=== PATIENT | male | born 1960 | race Caucasian/White ===

== ENCOUNTER 2016-11-16 07:17 | Emergency (ER) | payer MEDICAID ==
[~2016-11-16] VITALS: Ht 182.9 cm; Wt 91.6 kg
[~2016-11-16 07:17] MED LIST: ABILIFY5 MG ORAL; ASPIRIN EC81 MG ORAL; BACITRACIN1 APPLIC TOPIC; BACTRIM DS TAB1 EAC1 ORAL; CYMBALTA60 MG ORAL; EFFEXOR XR150 MG ORAL; HUMULIN 70100 UNIT/1 SUBQ; INTELENCE100 MG ORAL; ISENTRESS400 MG ORAL; KEFLEX500 MG ORAL; LIPITOR10 MG ORAL; LISINOPRIL10 MG ORAL; LISINOPRIL20 MG ORAL; NORMODYNE200 MG ORAL; NORVASC5 MG ORAL; TRILEPTAL600 MG PO; VIBRAMYCIN100 MG ORAL; VIREAD300 MG ORAL; WELLBUTRIN100 MG ORAL
[2016-11-16 07:43] VITALS: BP 158/75
[2016-11-16] MEDS ORDERED: Bacitracin Oint UD TOPIC ONE ×2 (07:47→08:00)
[2016-11-16] MEDS ORDERED: BACITRACIN ZIN1 EACH TOPIC ×2 (07:50→08:00)
--- NOTE | 2016-11-16 07:57 | Emergency Room Report ---
History of Present Illness General Chief Complaint: Skin Rash/Abscess Source: Patient Present Illness HPI Patient is a patient is a 56-year-old male who presented after a increased thickening to ulcer to the bottom of his left foot. The patient had recently been seen by primary care physician was started on topical moisturizers. Patient was noted to have increased skin thickening. The patient had prior history of diabetes. He denied fever. He reported numbness to both lower extremities from neuropathy.He denied any discharge from the wound. He had previously been on antifungal medication. Allergies: Coded Allergies: No Known Allergies (Unverified , 02/05/13) Patient History Past Medical History: see triage record, DM, HIV Reviewed Nursing Documentation: PMH: Agreed, PSxH: Agreed Nursing Documentation-PMH Past Medical History: No History, Except For Hx Hypertension: Yes Hx Diabetes: Yes Hx Vertigo: Yes Hx Dizziness: Yes Hx Headaches: Yes - Tension headaches Review of Systems All Other Systems: negative except mentioned in HPI Physical Exam Vital Signs Date Time Temp Pulse Resp B/P Pulse Ox O2 Delivery O2 Flow Rate FiO2 11/16/16 07:29 97.9 82 14 165/78 100 Room Air Sp02 EP Interpretation: reviewed, normal General Appearance: normal inspection, well appearing, no apparent distress, alert, GCS 15 Head: atraumatic ENT: normal ENT inspection, hearing grossly normal, normal voice Neck: normal inspection, full range of motion, supple, no bony tend Respiratory: normal inspection, lungs clear, normal breath sounds, no respiratory distress, no retraction, no wheezing Cardiovascular #1: regular rate, rhythm, no edema Gastrointestinal: normal inspection, normal bowel sounds, non tender, soft, no guarding, no hernia Genitourinary: no CVA tenderness Musculoskeletal: normal inspection, back normal, normal range of motion Neurologic: normal inspection, alert, oriented x3, responsive, speech normal Psychiatric: normal inspection, judgement/insight normal, mood/affect normal Skin: no rash, other - slight ulceration between toes on plantar surface, nail pitting Medical Decision Making Diagnostic Impression: Primary Impression: Foot ulcer Additional Impression: Psoriasis ER Course Patient is a skin ulcer. Differential diagnosis included was not limited to cellulitis, abscess, infected ulcer, pressure sore among others. Patient's benign exam and does not appear to require any further imaging or laboratory testing at this time. Patient's wound does not appear to be infected. Patient was given prescription for topical antibiotic cream. Wound was irrigated and dressed with topical antibiotic. Patient is advised that wound rechecked with his primary care physician next 2 days. Patient is advised to return if she began having increased pain worsening swelling or fever or other concerns Last Vital Signs Date Time Temp Pulse Resp B/P Pulse Ox O2 Delivery O2 Flow Rate FiO2 11/16/16 07:43 97.9 74 14 158/75 100 Room Air Status: improved Disposition: HOME, SELF-CARE Condition: Stable Scripts Bacitracin Zinc* (BACITRACIN ZINC*) 1 Each Packet 1 APPLIC TOPIC THREE TIMES A DAY, #30 PACKET Prov: Fantasma Conde 11/16/16 Patient Instructions: Diabetes and Foot Care Fantasma Conde Nov 16, 2016 07:57
[2016-11-16 08:05] VITALS: BP 158/75
== END 2016-11-16 08:06 | disposition home or self-care (01) ==
LOC: EMR 07:50
DX: E11.621 Type 2 diabetes mellitus with foot ulcer (principal); L40.9 Psoriasis, unspecified; I10 Essential (primary) hypertension
CPT/HCPCS: 99283

== ENCOUNTER 2018-10-20 21:22 | Inpatient (IN) | payer MEDICARE, MEDICAID ==
[~2018-10-20] VITALS: Ht 182.9 cm; Wt 96.6 kg
[~2018-10-20 21:22] MED LIST changes: +BACITRACIN ZIN1 EACH TOPIC
--- NOTE | 2018-10-20 22:00 | NUR ---
ED Nurse Note: RECIEVED PT FROM HOME WITH C/O INTERMITTENT CHEST PAIN, PT WAS HERE EARLIER TODAY AND LEFT AMA, STATES PAIN RETURNED AND HE NOW WANTS TO SEE WHAT IS WRONG, PT DENIES PAIN AT THIS TIME, STATES WAS 03/31 BUT NONE NOW, PT GOWNED AND PLACED ON CARDIAC MONITORING, PT IS ANXIOUS, CONSTANTLY ASKING SAME QUESTIONS AND WILL NOT STAY IN BED, MD AWARE, IV LINE PLACED AND LABS SENT, WILL CONTINUE OT MONITOR AND RESUME CARE ORDERED.
[2018-10-20] MEDS ORDERED: Nitroglycerin 2% oint pkt TOPIC ONE (22:30)
[2018-10-20] MEDS ORDERED: Nitroglycerin Subl 0.4mg tab SL PRN (22:30)
[2018-10-20 23:00] VITALS: BP 195/93
[2018-10-20 23:00] LABS: APPEARANCE,URINE CLEAR; BILIRUBIN, URINE NEGATIVE (NEGATIVE); COLOR,URINE PALE YELLOW; GLUCOSE, URINE (UA) 4+ (NEGATIVE); KETONES,URINE NEGATIVE (NEGATIVE); LEUKOCYTE ESTERASE ,URINE NEGATIVE (NEGATIVE); NITRITE,URINE NEGATIVE (NEGATIVE); PH,URINE 5 (4.5-8.0); PROTEIN,URINE 2+ (NEGATIVE); UROBILINOGEN,URINE NORMAL MG/DL (0.0-1.0)
--- NOTE | 2018-10-20 23:01 | Diagnostic Imaging Report ---
EXAM: XR Chest, 1 View CLINICAL HISTORY: CP TECHNIQUE: Frontal view of the chest. COMPARISON: No relevant prior studies available. FINDINGS: Lungs: Accentuation of bronchovascular markings. Pleural space: Unremarkable. No pneumothorax. Heart: Borderline cardiomegaly. Mediastinum: Unremarkable. Bones/joints: No acute fracture. IMPRESSION: Accentuation of bronchovascular markings.
[2018-10-20 23:05] LABS: BASOPHILS % (AUTO) 0.9 % (0.0-2.0); EOSINOPHILS % (AUTO) 3.1 % (0.0-3.0); HEMATOCRIT 31.1 % (42.0-52.0); HEMOGLOBIN 10.4 G/DL (14.2-18.0); LYMPHOCYTES % (AUTO) 22.7 % (20.0-45.0); MEAN CORPUSCULAR VOLUME 83 FL (80-99); MONOCYTES % (AUTO) 16.8 % (1.0-10.0); NEUTROPHILS % (AUTO) 56.6 % (45.0-75.0); PLATELET COUNT 186 K/UL (150-450); RED BLOOD COUNT 3.75 M/UL (4.70-6.10); RED CELL DISTRIBUTION WIDTH 14.8 % (11.6-14.8); WHITE BLOOD COUNT 3.8 K/UL (4.8-10.8)
[2018-10-20 23:16] LABS: ANION GAP 7 mmol/L (5-15); BLOOD UREA NITROGEN 27 mg/dL (7-18); CALCIUM 8.5 MG/DL (8.5-10.1); CARBON DIOXIDE 25 MMOL/L (21-32); CHLORIDE 104 MMOL/L (98-107); CREATININE 1.7 MG/DL (0.55-1.30); POTASSIUM 4.4 MMOL/L (3.5-5.1); SODIUM 136 MMOL/L (136-145)
[2018-10-20 23:27] LABS: ALANINE AMINOTRANSFERASE 47 U/L (12-78); ALBUMIN 3.4 G/DL (3.4-5.0); ALKALINE PHOSPHATASE 166 U/L (46-116); ASPARTATE AMINO TRANSFERASE 36 U/L (15-37); BILIRUBIN,TOTAL 0.3 MG/DL (0.2-1.0); CREATINE KINASE 390 U/L (26-308)
[2018-10-20 23:30] VITALS: BP 155/64
[2018-10-20] MEDS ORDERED: LANTUS SOL100 UNIT/1 SUBQ (23:59)
[2018-10-20] MEDS ORDERED: MAGNESIUM400 M2 PO (23:59)
[2018-10-20] MEDS ORDERED: NAPROXEN250 MG ORAL (23:59)
[2018-10-20] MEDS ORDERED: TENORMIN25 MG ORAL (23:59)
[2018-10-20] MEDS ORDERED: LAMOTRIGINE200 M1 PO (23:59)
[2018-10-20] MEDS ORDERED: COLACE250 MG ORAL (23:59)
[2018-10-20] MEDS ORDERED: BIOTIN2500 MCG PO (23:59)
[2018-10-20] MEDS ORDERED: VICTOZA 2-0.6 MG/0.1 SUBQ (23:59)
[2018-10-20] MEDS ORDERED: LOSARTAN POTAS100 MG ORAL (23:59)
[2018-10-20] MEDS ORDERED: BUTALBITAL-ASA1 EACH PO (23:59)
[2018-10-20] MEDS ORDERED: FOLIC ACID1 M1 PO (23:59)
[2018-10-21] VITALS (8 sets, daily range): BP systolic 149–173; BP diastolic 69–97
--- NOTE | 2018-10-21 | NUR ---
ED Nurse Note: PT CONTINUES TO REST IN BED, AWAKE AND ALERT, DENIES ANY CHANGES, NO CP AT THIS TIME, C/O HAVING HEADACHE, NITROPASTE APPLIED TO CHEST, PT B/P ELEVATED AND FLUCTUATING, MD AWARE ALSO, WILL CONTINUE TO CLOSELY MONITOR AND PREAPER FOR ADMISSION.
--- NOTE | 2018-10-21 01:15 | NUR ---
ED Nurse Note: PT INFORMED BY THAT HE WILL BE ADMITTED, TP VERY ANXIOUS, WANTS TO GO TO HIS CAR, STATES FOR MEDS, INFORMED PT THAT ALL HIS MEDS WILL BE GIVEN HERE, PT INSIST ON GOING OUTSIDE, PT HAS SALINE LOCK AND INFORMED HE CAN NOT GO, MD TOLD PT HE CAN GO WITH NURSE, ASSISTED PT OUT TO CAR, NODISTRESS OR CHANGES NOTED, TP RETRIEVED CELL PHONE, WHEN RETURNED TO ED PT WENT OT BATHROOM FOR SOME TIME THEN REPLACED ON MONITORING, WILL CONTINUE TO MONITOR AND PREAPRE FOR ADMISSION.
[2018-10-21] MEDS: Metoprolol 5mg/5ml Inj IVP SCH ×3 (03:16→03:31)
--- NOTE | 2018-10-21 03:30 | NUR ---
ED Nurse Note: PT CONTINUES TO REST IN BED, PT INFORMED MD THAT HIS PAIN IS RETURNING AT 4/10 IN CHEST, MD GAVE NEW ORDERS, MEDS ADMINISTERED, PT RELIEVED OF PAIN, B/P WNL AND HEART RATE ALSO, PT TO NOW BE ADMITTED TO HOSPITAL, WILL PREPARE AND SEND TO FLOOR BED FOR ADMISISON.
--- NOTE | 2018-10-21 04:10 | Emergency Room Report ---
History of Present Illness General Chief Complaint: Chest Pain Source: Patient Present Illness HPI Patient presents with intermittent L sided chest pain which is been intermittent for about a week. It is worse when supine. The pain at home was 8 -9/10. Takes baby aspirin. The pain radiates to his shoulder and down his left arm. Pressure and aching pain. Denies diaphoresis or nausea. He has been feeling his heart pounding and palpitations along with the pain. There is no dizziness. Denies fevers, sore throat or productive cough. There is no trauma. He has no chest wall tenderness. He denies prior cardiac evaluation. He feels anxious when the pain occurs. Risk factors: DM, HTN. No family history or smoking. He does not know his cholesterol. Patient has HIV and takes antivirals. Patient has had lacunar infarcts in the past. He has had malignant hypertension also. He was last admitted in 2016 with these discharge diagnoses: 1. Acute small right pontomedullary and cerebellar peduncle stroke. 2. Hypertensive encephalopathy. 3. Malignant hypertension. 4. Human immunodeficiency virus. 5. Multiple old lacunar stroke with extensive ischemic cerebrovascular disease. 6. Bilateral posterior cerebral artery severe stenosis. 7. Depression. 8. Hyperlipidemia. 9. Poorly controlled hypertension. 10. Prior history of substance abuse. Allergies: Coded Allergies: No Known Allergies (Unverified , 02/05/13) Patient History Past Medical History: see triage record Social History: Denies: smoking, alcohol use, drug use - Prior Social History Narrative from home Reviewed Nursing Documentation: PMH: Agreed; PSxH: Agreed Nursing Documentation-PMH Hx Hypertension: Yes Hx Diabetes: Yes Hx Vertigo: Yes Hx Dizziness: Yes Hx Headaches: Yes - Tension headaches Review of Systems All Other Systems: negative except mentioned in HPI Physical Exam Vital Signs Date Time Temp Pulse Resp B/P (MAP) Pulse Ox O2 Delivery O2 Flow Rate FiO2 10/20/18 21:42 98.1 108 18 150/80 94 Room Air Sp02 EP Interpretation: reviewed, normal General Appearance: well appearing, no apparent distress, GCS 15 Head: normocephalic Eyes: bilateral eye normal inspection, bilateral eye PERRL ENT: moist mucus membranes Neck: supple Respiratory: chest non-tender, lungs clear, normal breath sounds Cardiovascular #1: regular rate, rhythm, no edema Cardiovascular #2: 2+ radial (R) Gastrointestinal: normal inspection, normal bowel sounds, non tender, no mass, non-distended Musculoskeletal: back normal, gait/station normal, normal range of motion, no calf tenderness Neurologic: alert, oriented x3, grossly normal Psychiatric: anxious Skin: normal inspection, warm/dry Medical Decision Making Diagnostic Impression: Primary Impression: ACS (acute coronary syndrome) Additional Impressions: Elevated troponin Hypertension Qualified Codes: I10 - Essential (primary) hypertension Diabetes Qualified Codes: E11.8 - Type 2 diabetes mellitus with unspecified complications; 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 The fact that he is a diabetic makes it important for us to exclude cardiac cause even though the history is atypical. Differential includes acute myocardial infarction, acute coronary syndrome, costochondritis, esophageal reflux, other musculoskeletal causes others. Evaluation will be with EKG, chest x-ray and labs. The patient will be treated with aspirin nitroglycerin paste. Nitroglycerin is ordered he does have pain here. The patient is placed on a threat monitoring analyst. EKG was sinus tachycardia without injury. Chest x-ray unremarkable. Initial troponin minimally elevated. Renal insufficiency. Lipase is slightly elevated however pain is not in the area of the pancreas. Pain free with nitro bid. Feels heart pounding and occasional palpitations. Metoprolol ordered. Improved with metoprolol. Discussed with Dr. Russo. Repeat troponin with slight increase. Discussed with patient treatment plan. Patient admitted to telemetry. Laboratory Tests Test 10/20/18 20:25 10/20/18 22:30 10/21/18 03:10 Urine Color Pale yellow Urine Appearance Clear Urine pH 5 (4.5-8.0) Urine Specific [place] 1.015 (1.005-1.035) Urine Protein 2+ (NEGATIVE) H Urine Glucose (UA) 4+ (NEGATIVE) H Urine Ketones Negative (NEGATIVE) Urine Blood 2+ (NEGATIVE) H Urine Nitrite Negative (NEGATIVE) Urine Bilirubin Negative (NEGATIVE) Urine Urobilinogen Normal MG/DL (0.0-1.0) Urine Leukocyte Esterase Negative (NEGATIVE) Urine RBC 0-2 /HPF (0 - 0) H Urine WBC 0-2 /HPF (0 - 0) Urine Squamous Epithelial Cells None /LPF (NONE/OCC) Urine Bacteria None /HPF (NONE) White Blood Count 3.8 K/UL (4.8-10.8) L Red Blood Count 3.75 M/UL (4.70-6.10) L Hemoglobin 10.4 G/DL (14.2-18.0) L Hematocrit 31.1 % (42.0-52.0) L Mean Corpuscular Volume 83 FL (80-99) Mean Corpuscular Hemoglobin 27.6 PG (27.0-31.0) Mean Corpuscular Hemoglobin Concent 33.3 G/DL (32.0-36.0) Red Cell Distribution Width 14.8 % (11.6-14.8) Platelet Count 186 K/UL (150-450) Mean Platelet Volume 4.8 FL (6.5-10.1) L Neutrophils (%) (Auto) 56.6 % (45.0-75.0) Lymphocytes (%) (Auto) 22.7 % (20.0-45.0) Monocytes (%) (Auto) 16.8 % (1.0-10.0) H Eosinophils (%) (Auto) 3.1 % (0.0-3.0) H Basophils (%) (Auto) 0.9 % (0.0-2.0) Prothrombin Time 10.4 SEC (9.30-11.50) Prothrombin Time INR 1.0 (0.9-1.1) PTT 34 SEC (23-33) H Sodium Level 136 MMOL/L (136-145) Potassium Level 4.4 MMOL/L (3.5-5.1) Chloride Level 104 MMOL/L (98-107) Carbon Dioxide Level 25 MMOL/L (21-32) Anion Gap 7 mmol/L (5-15) Blood Urea Nitrogen 27 mg/dL (7-18) H Creatinine 1.7 MG/DL (0.55-1.30) H Estimate Glomerular Filtration Rate 41.5 mL/min (>60) Glucose Level 177 MG/DL (74-106) H Calcium Level 8.5 MG/DL (8.5-10.1) Total Bilirubin 0.3 MG/DL (0.2-1.0) Aspartate Amino Transferase (AST) 36 U/L (15-37) Alanine Aminotransferase (ALT) 47 U/L (12-78) Alkaline Phosphatase 166 U/L (46-116) H Total Creatine Kinase 390 U/L (26-308) H Troponin I 0.048 ng/mL (0.000-0.056) 0.068 ng/mL (0.000-0.056) Pro-B-Type Natriuretic Peptide 121 pg/mL (0-125) Total Protein 6.7 G/DL (6.4-8.2) Albumin 3.4 G/DL (3.4-5.0) Globulin 3.3 g/dL Albumin/Globulin Ratio 1.0 (1.0-2.7) Lipase 428 U/L (73-393) H EKG Diagnostic Results Rate: tachycardiac Rhythm: NSR ST Segments: no acute changes Rhythm Strip Diag. Results EP Interpretation: yes Rhythm: no PVC's, no ectopy, other - ST Chest X-Ray Diagnostic Results Chest X-Ray Diagnostic Results : Chest X-Ray Ordered: Yes # of Views/Limited/Complete: 1 View Indication: Chest Pain EP Interpretation: Yes Interpretation: no consolidation, no effusion, no pneumothorax Impression: No acute disease Last Vital Signs Date Time Temp Pulse Resp B/P (MAP) Pulse Ox O2 Delivery O2 Flow Rate FiO2 10/21/18 09:00 Room Air 10/21/18 08:43 153/83 10/21/18 08:43 102 10/21/18 08:00 98.4 22 98 Status: improved Disposition: ADMITTED INPATIENT Condition: Serious Referrals: NON PHYSICIAN (PCP) Salty Flowers MD Oct 21, 2018 04:10
--- NOTE | 2018-10-21 05:00 | NUR ---
NURSE NOTES: RECEIVED BEDSIDE REPORT FROM MONICO ZARATE. PT IS IS X4, ABLE TO FOLLOW COMMANDS, AMBULATORY. LFA 20G ASYMPTOMATIC, SL. SKIN IS CLEAN, DRY INTACT. NO S/S OF DISTRESS NOTED. STATES NO PAIN. URINAL AT BEDSIDE. AWAITING ADMIT ORDERS FROM PHYSICIAN. ORIENTATION GIVEN. BED IS LOCKED IN LOWEST POSITION, SR X3, BED ALARM ON. WILL CONTINUE TO MONITOR AND FOLLOW PLAN OF CARE.
[2018-10-21] MEDS ORDERED: Norco 5mg/325mg tab ORAL PRN (05:15)
--- NOTE | 2018-10-21 07:10 | NUR ---
HAND-OFF: Report given to TESSA Ramirez. Pt stable, no complains of pain, s/s of distress.
--- NOTE | 2018-10-21 08:00 | NUR ---
NURSE NOTES: Pt awake/alert sitting at edge of bed, breathing easily on room air, denies SOB and denies pain at this time. Vital signs stable with SR @ 101 on monitor. IV access left forearm flushed with 10 ml NS and locked. Pt sts no accu-chek done since admit so done at bedside, 122. Bed left in low position, side rails up x 2 and call light left near pt's hand.
--- NOTE | 2018-10-21 08:01 | NUR ---
NURSE NOTES: RECEIVED BEDSIDE REPORT FROM TESSA MCDOWELL. PT IS IS X4, ABLE TO FOLLOW COMMANDS, AMBULATORY. LFA 20G ASYMPTOMATIC, SL. SKIN IS CLEAN, DRY INTACT. NO S/S OF DISTRESS NOTED. STATES NO PAIN. URINAL AT BEDSIDE. LABS OK. BED IS LOCKED IN LOWEST POSITION, SR X3, BED ALARM ON. WILL CONTINUE TO MONITOR AND FOLLOW PLAN OF CARE.
[2018-10-21] MEDS: Docusate 100mg cap ORAL SCH ×2 (08:41→17:47)
[2018-10-21] MEDS: DULoxetine 30mg cap ORAL SCH (08:42)
[2018-10-21] MEDS: Aspirin EC 81mg tab ORAL SCH (08:42)
[2018-10-21] MEDS ORDERED: Etravirine 100mg tab ORAL SCH (09:00)
[2018-10-21] MEDS ORDERED: Naproxen 500mg tab ORAL SCH (09:00)
[2018-10-21] MEDS ORDERED: Isentress 400mg tab ORAL SCH (09:00)
[2018-10-21] MEDS ORDERED: Docusate 250mg cap ORAL SCH (09:00)
[2018-10-21] MEDS ORDERED: Atenolol 25mg tab ORAL SCH (09:00)
[2018-10-21] MEDS ORDERED: Losartan 25mg tab ORAL SCH (09:00)
[2018-10-21] MEDS ORDERED: Lexiscan 0.4mg/5ml syringe IV PRN (13:45)
--- NOTE | 2018-10-21 13:47 | Consultation ---
History of Present Illness General Date patient seen: Oct 21, 2018 Time patient seen: 13:36 Chief Complaint: Chest Pain Present Illness HPI 58 y/o male presents with CP in setting of hypertension, troponin marginally elevated, EKG sinus tachycardia. He has hx of HTN, medication non compliance, depression, DM, CKD, HLD, HIV, substance abuse, Lacunar hypertensive infarcts. Allergies: Coded Allergies: No Known Allergies (Unverified , 02/05/13) Medication History Scheduled Amlodipine Besylate (Norvasc), 5 MG ORAL BID Aripiprazole* (Abilify*), 2.5 MG ORAL DAILY, (Reported) Aspirin Ec* (Aspirin Ec*), 81 MG ORAL DAILY Atenolol (Tenormin), 50 MG ORAL DAILY, (Reported) Atorvastatin Calcium* (Lipitor*), 10 MG ORAL BEDTIME Bacitracin Zinc* (Bacitracin Zinc*), 1 APPLIC TOPIC THREE TIMES A DAY Bupropion HCl (Wellbutrin), 100 MG ORAL DAILY, (Reported) Docusate Sodium (Docusate Sodium), 100 MG ORAL TWICE A DAY, (Reported) Duloxetine Hcl* (Cymbalta*), 90 MG ORAL DAILY, (Reported) Etravirine* (Intelence*), 100 MG ORAL EVERY 12 HOURS, (Reported) Folic Acid (Folic Acid), 1 MG PO BID, (Reported) Hum Insulin Nph/Reg Insulin Hm (Humulin 70-30 Pen), 0 SUBQ BID, (Reported) Insulin Glargine (Lantus), 48 SUBQ BEDTIME, (Reported) Labetalol HCl (Labetalol HCl), 200 MG ORAL Q12HR Liraglutide (Victoza 2-Oleg), 1.2 MG SUBQ DAILY, (Reported) Lisinopril (Lisinopril*), 20 MG ORAL BID Lisinopril* (Lisinopril*), 20 MG ORAL DAILY, (Reported) Losartan Potassium (Losartan Potassium), 25 MG ORAL DAILY, (Reported) Naproxen* (Naprosyn*), 500 MG ORAL TWICE A DAY, (Reported) Oxcarbazepine* (Trileptal*), 750 MG PO BEDTIME, (Reported) Raltegravir (Isentress), 400 MG ORAL EVERY 12 HOURS, (Reported) Tenofovir Disoproxil Fumarate* (Viread*), 300 MG ORAL DAILY, (Reported) Venlafaxine Hcl* (Effexor Xr*), 300 MG ORAL BID, (Reported) Miscellaneous Medications Biotin (Biotin), 5,000 MCG PO, (Reported) Butalbital/Aspirin/Caffeine (Qszubxicse-Dwp-Fhcbrpmv Cap), 1 EACH PO, (Reported) Lamotrigine (Lamotrigine), 200 MG PO, (Reported) Magnesium Oxide (Magnesium), 500 MG PO, (Reported) Patient History Healthcare decision maker SELF Resuscitation status Advanced Directive on File No Review of Systems Constitutional: Reports: no symptoms Eye: Reports: no symptoms Respiratory: Reports: no symptoms Cardiovascular: Reports: chest pain Gastrointestinal: Reports: no symptoms Genitourinary: Reports: no symptoms Musculoskeletal: Reports: no symptoms Skin: Reports: no symptoms Psychiatric: Reports: no symptoms Neurological: Reports: headache Endocrine: Reports: no symptoms Hematologic/Lymphatic: Reports: no symptoms Physical Exam General Appearance: no apparent distress, alert Lines, tubes and drains: peripheral HEENT: normocephalic, atraumatic, anicteric, mucous membranes moist, PERRL Neck: non-tender, normal alignment, supple, normal inspection Respiratory/Chest: chest wall non-tender, lungs clear Cardiovascular/Chest: normal peripheral pulses, normal rate, regular rhythm, no gallop/murmur, tachycardia, gallop/S4 Abdomen: normal bowel sounds, non tender, soft, no organomegaly, no mass Extremities: normal range of motion, non-tender, normal inspection, no calf tenderness, normal capillary refill Skin Exam: normal pigmentation, warm/dry, cyanotic Neurologic: pot sander II-XII grossly normal Last 24 Hour Vital Signs Date Time Temp Pulse Resp B/P (MAP) Pulse Ox O2 Delivery O2 Flow Rate FiO2 10/21/18 09:00 Room Air 10/21/18 08:43 153/83 10/21/18 08:43 102 153/83 10/21/18 08:00 98.4 98 22 157/84 (108) 98 10/21/18 05:52 Room Air 10/21/18 04:29 102 10/21/18 04:20 98.4 107 16 153/83 97 Room Air 10/21/18 04:00 98.1 102 18 155/91 (112) 100 10/21/18 03:31 98 153/83 10/21/18 03:25 98 153/83 10/21/18 03:16 102 165/84 10/21/18 02:00 98.4 107 16 173/69 97 Room Air 10/21/18 01:57 98.4 10/21/18 01:00 98.4 100 18 169/74 97 Room Air 10/21/18 00:00 98.4 93 18 163/72 94 Room Air 10/20/18 23:30 98.1 93 18 155/64 94 Room Air 10/20/18 23:21 195/93 10/20/18 23:00 98.1 107 18 195/93 94 Room Air 10/20/18 22:00 108 18 Room Air 10/20/18 21:42 98.1 108 18 150/80 94 Room Air Intake and Output 10/20/18 10/21/18 19:00 07:00 Intake Total 120 ml Balance 120 ml Intake Oral 120 ml Laboratory Tests Test 10/20/18 20:25 10/20/18 22:30 10/21/18 03:10 10/21/18 10:55 Urine Color Pale yellow Urine Appearance Clear Urine pH 5 (4.5-8.0) Urine Specific [place] 1.015 (1.005-1.035) Urine Protein 2+ (NEGATIVE) H Urine Glucose (UA) 4+ (NEGATIVE) H Urine Ketones Negative (NEGATIVE) Urine Blood 2+ (NEGATIVE) H Urine Nitrite Negative (NEGATIVE) Urine Bilirubin Negative (NEGATIVE) Urine Urobilinogen Normal MG/DL (0.0-1.0) Urine Leukocyte Esterase Negative (NEGATIVE) Urine RBC 0-2 /HPF (0 - 0) H Urine WBC 0-2 /HPF (0 - 0) Urine Squamous Epithelial Cells None /LPF (NONE/OCC) Urine Bacteria None /HPF (NONE) White Blood Count 3.8 K/UL (4.8-10.8) L Red Blood Count 3.75 M/UL (4.70-6.10) L Hemoglobin 10.4 G/DL (14.2-18.0) L Hematocrit 31.1 % (42.0-52.0) L Mean Corpuscular Volume 83 FL (80-99) Mean Corpuscular Hemoglobin 27.6 PG (27.0-31.0) Mean Corpuscular Hemoglobin Concent 33.3 G/DL (32.0-36.0) Red Cell Distribution Width 14.8 % (11.6-14.8) Platelet Count 186 K/UL (150-450) Mean Platelet Volume 4.8 FL (6.5-10.1) L Neutrophils (%) (Auto) 56.6 % (45.0-75.0) Lymphocytes (%) (Auto) 22.7 % (20.0-45.0) Monocytes (%) (Auto) 16.8 % (1.0-10.0) H Eosinophils (%) (Auto) 3.1 % (0.0-3.0) H Basophils (%) (Auto) 0.9 % (0.0-2.0) Prothrombin Time 10.4 SEC (9.30-11.50) Prothromb Time International Ratio 1.0 (0.9-1.1) Activated Partial Thromboplast Time 34 SEC (23-33) H Sodium Level 136 MMOL/L (136-145) Potassium Level 4.4 MMOL/L (3.5-5.1) Chloride Level 104 MMOL/L (98-107) Carbon Dioxide Level 25 MMOL/L (21-32) Anion Gap 7 mmol/L (5-15) Blood Urea Nitrogen 27 mg/dL (7-18) H Creatinine 1.7 MG/DL (0.55-1.30) H Estimat Glomerular Filtration Rate 41.5 mL/min (>60) Glucose Level 177 MG/DL (74-106) H Calcium Level 8.5 MG/DL (8.5-10.1) Total Bilirubin 0.3 MG/DL (0.2-1.0) Aspartate Amino Transf (AST/SGOT) 36 U/L (15-37) Alanine Aminotransferase (ALT/SGPT) 47 U/L (12-78) Alkaline Phosphatase 166 U/L (46-116) H Total Creatine Kinase 390 U/L (26-308) H Troponin I 0.048 ng/mL (0.000-0.056) 0.068 ng/mL (0.000-0.056) 0.048 ng/mL (0.000-0.056) Pro-B-Type Natriuretic Peptide 121 pg/mL (0-125) Total Protein 6.7 G/DL (6.4-8.2) Albumin 3.4 G/DL (3.4-5.0) Globulin 3.3 g/dL Albumin/Globulin Ratio 1.0 (1.0-2.7) Lipase 428 U/L (73-393) H Height (Feet): 6 Weight (Pounds): 213 Medications Current Medications Medications (Trade) Dose Ordered Sig/Marquis Route PRN Reason Start Time Stop Time Status Last Admin Dose Admin Acetaminophen/ Hydrocodone Bitart ([place] 5/325) 1 tab Q4H PRN ORAL Moderate Pain (Pain Scale 4-6) 10/21/18 05:15 10/28/18 05:14 Aspirin (Ecotrin) 81 mg DAILY ORAL 10/21/18 09:00 11/20/18 08:59 10/21/18 08:42 Atenolol (Tenormin) 50 mg DAILY ORAL 10/21/18 09:00 11/20/18 08:59 10/21/18 08:43 Docusate Sodium (Colace) 100 mg BID ORAL 10/21/18 09:00 11/20/18 08:59 10/21/18 08:41 Duloxetine HCl (Cymbalta) 90 mg DAILY ORAL 10/21/18 09:00 11/20/18 08:59 10/21/18 08:42 Etravirine (Intelence) 100 mg EVERY 12 HOURS ORAL 10/21/18 09:00 11/20/18 08:59 UNV Folic Acid (Folate) 1 mg BID ORAL 10/21/18 09:00 11/20/18 08:59 10/21/18 08:43 Insulin Detemir (Levemir) 48 units BEDTIME SUBQ 10/21/18 21:00 11/20/18 20:59 Lamotrigine (LaMICtal) 200 mg DAILY ORAL 10/21/18 09:00 11/20/18 08:59 10/21/18 08:42 Losartan Potassium (Cozaar) 25 mg DAILY ORAL 10/21/18 09:00 11/20/18 08:59 10/21/18 08:43 Naproxen (Naprosyn) 500 mg TWICE A DAY ORAL 10/21/18 09:00 11/20/18 08:59 10/21/18 08:58 Non-Formulary Medication (Non-Formulary Med) 1 ea DAILY ORAL 10/21/18 09:00 11/20/18 08:59 UNV Raltegravir (Isentress) 400 mg EVERY 12 HOURS ORAL 10/21/18 09:00 11/20/18 08:59 UNV Tenofovir Disoproxil Fumarate (Viread) 300 mg DAILY ORAL 10/21/18 09:00 11/20/18 08:59 UNV Assessment/Plan Status: stable Assessment/Plan Assessment Chest pain Hypertensive urgency Elevated troponin Sinus tachycardia DM CKD HTN HLD HIV Medication non compliance lacular infarcts, CVA Plan Previous TTE with normal LV function but hypertensive heart disease and LVH with elevated filling pressures Low salt diet, cardiac rehab Ensure medication compliance Stress test given cardiac risk factors, elevated troponin, symptoms, EKG no ischemia currently/hold heparin Nitro prn chest pain d/c losartan and aldactone - ISH/CKD elevated creatinine Aspirin given hx of lacunar CVA Start norvasc 10 mg Start hydralazine 25 mg TID Adjust BP medications as needed Further recommendations to follow Salty Arias MD Oct 21, 2018 13:47
--- NOTE | 2018-10-21 14:26 | Consultation ---
Consult Note Consult Note asked to eval for elevated Cr Patient presents with intermittent L sided chest pain. It is worse when supine. The pain at home was 8-9/10. Takes baby aspirin. Risk factors: DM, HTN No Known Allergies (Unverified , 02/05/13) Hx Hypertension: Yes Hx Diabetes: Yes Hx Vertigo: Yes Hx Dizziness: Yes Hx Headaches: Yes - Tension headaches Interviewed examined . Assessment/Plan CKD Diabetic Nephropathy, 2+ proteinuria 20 y on Insulin for DM has HTN Anemia of CKD? High Lipase stop Naprosyn Flomax HS Protonix Anemia navarrete lipid panel and Hgb A1c urine tox screen Mike Mcdonald MD Oct 21, 2018 14:26
[2018-10-21] MEDS ORDERED: HydrALAZINE 25mg tab ORAL PRN (14:30)
--- NOTE | 2018-10-21 16:12 | History and Physical ---
History of Present Illness General Date patient seen: Oct 21, 2018 Time patient seen: 09:30 Reason for Hospitalization: Chest Pain Present Illness HPI 58 y/o man with hx of HIV disease presents with intermittent L sided chest pain. It is worse when supine and with exertion. The pain at home was 8-9 /10. Takes baby aspirin. Pt denied ever having chest pain previous to this episode. Several episodes, lasts for minutes. Pt states has hx of multiple infarcts in the past, denied residual neurological deficits. Allergies: Coded Allergies: No Known Allergies (Unverified , 02/05/13) Medication History Scheduled Amlodipine Besylate (Norvasc), 5 MG ORAL BID Aripiprazole* (Abilify*), 2.5 MG ORAL DAILY, (Reported) Aspirin Ec* (Aspirin Ec*), 81 MG ORAL DAILY Atenolol (Tenormin), 50 MG ORAL DAILY, (Reported) Atorvastatin Calcium* (Lipitor*), 10 MG ORAL BEDTIME Bacitracin Zinc* (Bacitracin Zinc*), 1 APPLIC TOPIC THREE TIMES A DAY Bupropion HCl (Wellbutrin), 100 MG ORAL DAILY, (Reported) Docusate Sodium (Docusate Sodium), 100 MG ORAL TWICE A DAY, (Reported) Duloxetine Hcl* (Cymbalta*), 90 MG ORAL DAILY, (Reported) Etravirine* (Intelence*), 100 MG ORAL EVERY 12 HOURS, (Reported) Folic Acid (Folic Acid), 1 MG PO BID, (Reported) Hum Insulin Nph/Reg Insulin Hm (Humulin 70-30 Pen), 0 SUBQ BID, (Reported) Insulin Glargine (Lantus), 48 SUBQ BEDTIME, (Reported) Labetalol HCl (Labetalol HCl), 200 MG ORAL Q12HR Liraglutide (Victoza 2-Oleg), 1.2 MG SUBQ DAILY, (Reported) Lisinopril (Lisinopril*), 20 MG ORAL BID Lisinopril* (Lisinopril*), 20 MG ORAL DAILY, (Reported) Losartan Potassium (Losartan Potassium), 25 MG ORAL DAILY, (Reported) Naproxen* (Naprosyn*), 500 MG ORAL TWICE A DAY, (Reported) Oxcarbazepine* (Trileptal*), 750 MG PO BEDTIME, (Reported) Raltegravir (Isentress), 400 MG ORAL EVERY 12 HOURS, (Reported) Tenofovir Disoproxil Fumarate* (Viread*), 300 MG ORAL DAILY, (Reported) Venlafaxine Hcl* (Effexor Xr*), 300 MG ORAL BID, (Reported) Miscellaneous Medications Biotin (Biotin), 5,000 MCG PO, (Reported) Butalbital/Aspirin/Caffeine (Isdnlnqabo-Tnu-Pgjqppue Cap), 1 EACH PO, (Reported) Lamotrigine (Lamotrigine), 200 MG PO, (Reported) Magnesium Oxide (Magnesium), 500 MG PO, (Reported) Patient History Healthcare decision maker SELF Resuscitation status Advanced Directive on File No Past Medical/Surgical History Past Medical/Surgical History: (1) Psoriasis (2) HIV disease (3) Hypertension (4) Diabetes (5) Malignant hypertension (6) extensive ischemic cerebrovasculat disease, multple old lacunar strokes. Family History Family History: In first degree relatives is unremarkable Review of Systems ROS Narrative CONSTITUTIONAL: No weight loss, fever, chills, weakness or fatigue. HEENT: Eyes: No visual loss, blurred vision, double vision or yellow sclerae. Ears, Nose, Throat: No hearing loss, sneezing, congestion, runny nose or sore throat. SKIN: No rash or itching. CARDIOVASCULAR:+ chest pain, chest pressure or chest discomfort. No palpitations or edema. RESPIRATORY: No shortness of breath, cough or sputum. GASTROINTESTINAL: No anorexia, nausea, vomiting or diarrhea. No abdominal pain or blood. NEUROLOGICAL: No headache, dizziness, syncope, paralysis, ataxia, numbness or tingling in the extremities. No change in bowel or bladder control. MUSCULOSKELETAL: No muscle, back pain, joint pain or stiffness. HEMATOLOGIC: No anemia, bleeding or bruising. LYMPHATICS: No enlarged nodes. No history of splenectomy. PSYCHIATRIC: No history of depression or anxiety. ENDOCRINOLOGIC: No reports of sweating, cold or heat intolerance. No polyuria or polydipsia. ALLERGIES: No history of asthma, hives, eczema or rhinitis. Physical Exam Physical Exam Narrative General: alert, cooperative, no distress, appears stated age Head: normocephalic, without obvious abnormality, atraumatic Eyes: conjunctivae/corneas clear. PERRL, EOM's intact Throat: lips, mucosa, and tongue normal. MMM Neck: supple, symmetrical, trachea midline, and no JVD Lungs: clear to auscultation bilaterally Heart: regular rate and rhythm, S1, S2 normal, no murmur, click, rub or gallop Abdomen: soft, non-tender, non-distended, bowel sounds normal; no masses or organomegaly Extremities: extremities normal, atraumatic, no cyanosis or edema Pulses: 2+ and symmetric Skin: skin color, texture, turgor normal; no rashes or lesions Neurologic: grossly normal, no focal deficits Last 24 Hour Vital Signs Date Time Temp Pulse Resp B/P (MAP) Pulse Ox O2 Delivery O2 Flow Rate FiO2 10/21/18 12:00 97.7 88 21 152/97 (115) 97 10/21/18 12:00 88 10/21/18 09:00 Room Air 10/21/18 08:43 153/83 10/21/18 08:43 102 153/83 10/21/18 08:00 98.4 98 22 157/84 (108) 98 10/21/18 05:52 Room Air 10/21/18 04:29 102 10/21/18 04:20 98.4 107 16 153/83 97 Room Air 10/21/18 04:00 98.1 102 18 155/91 (112) 100 10/21/18 03:31 98 153/83 10/21/18 03:25 98 153/83 10/21/18 03:16 102 165/84 10/21/18 02:00 98.4 107 16 173/69 97 Room Air 10/21/18 01:57 98.4 10/21/18 01:00 98.4 100 18 169/74 97 Room Air 10/21/18 00:00 98.4 93 18 163/72 94 Room Air 10/20/18 23:30 98.1 93 18 155/64 94 Room Air 10/20/18 23:21 195/93 10/20/18 23:00 98.1 107 18 195/93 94 Room Air 10/20/18 22:00 108 18 Room Air 10/20/18 21:42 98.1 108 18 150/80 94 Room Air Intake and Output 10/20/18 10/21/18 19:00 07:00 Intake Total 120 ml Balance 120 ml Intake Oral 120 ml Laboratory Tests Test 10/20/18 20:25 10/20/18 22:30 10/21/18 03:10 10/21/18 10:55 Urine Color Pale yellow Urine Appearance Clear Urine pH 5 (4.5-8.0) Urine Specific [place] 1.015 (1.005-1.035) Urine Protein 2+ (NEGATIVE) H Urine Glucose (UA) 4+ (NEGATIVE) H Urine Ketones Negative (NEGATIVE) Urine Blood 2+ (NEGATIVE) H Urine Nitrite Negative (NEGATIVE) Urine Bilirubin Negative (NEGATIVE) Urine Urobilinogen Normal MG/DL (0.0-1.0) Urine Leukocyte Esterase Negative (NEGATIVE) Urine RBC 0-2 /HPF (0 - 0) H Urine WBC 0-2 /HPF (0 - 0) Urine Squamous Epithelial Cells None /LPF (NONE/OCC) Urine Bacteria None /HPF (NONE) White Blood Count 3.8 K/UL (4.8-10.8) L Red Blood Count 3.75 M/UL (4.70-6.10) L Hemoglobin 10.4 G/DL (14.2-18.0) L Hematocrit 31.1 % (42.0-52.0) L Mean Corpuscular Volume 83 FL (80-99) Mean Corpuscular Hemoglobin 27.6 PG (27.0-31.0) Mean Corpuscular Hemoglobin Concent 33.3 G/DL (32.0-36.0) Red Cell Distribution Width 14.8 % (11.6-14.8) Platelet Count 186 K/UL (150-450) Mean Platelet Volume 4.8 FL (6.5-10.1) L Neutrophils (%) (Auto) 56.6 % (45.0-75.0) Lymphocytes (%) (Auto) 22.7 % (20.0-45.0) Monocytes (%) (Auto) 16.8 % (1.0-10.0) H Eosinophils (%) (Auto) 3.1 % (0.0-3.0) H Basophils (%) (Auto) 0.9 % (0.0-2.0) Prothrombin Time 10.4 SEC (9.30-11.50) Prothromb Time International Ratio 1.0 (0.9-1.1) Activated Partial Thromboplast Time 34 SEC (23-33) H Sodium Level 136 MMOL/L (136-145) Potassium Level 4.4 MMOL/L (3.5-5.1) Chloride Level 104 MMOL/L (98-107) Carbon Dioxide Level 25 MMOL/L (21-32) Anion Gap 7 mmol/L (5-15) Blood Urea Nitrogen 27 mg/dL (7-18) H Creatinine 1.7 MG/DL (0.55-1.30) H Estimat Glomerular Filtration Rate 41.5 mL/min (>60) Glucose Level 177 MG/DL (74-106) H Calcium Level 8.5 MG/DL (8.5-10.1) Total Bilirubin 0.3 MG/DL (0.2-1.0) Aspartate Amino Transf (AST/SGOT) 36 U/L (15-37) Alanine Aminotransferase (ALT/SGPT) 47 U/L (12-78) Alkaline Phosphatase 166 U/L (46-116) H Total Creatine Kinase 390 U/L (26-308) H Troponin I 0.048 ng/mL (0.000-0.056) 0.068 ng/mL (0.000-0.056) 0.048 ng/mL (0.000-0.056) Pro-B-Type Natriuretic Peptide 121 pg/mL (0-125) Total Protein 6.7 G/DL (6.4-8.2) Albumin 3.4 G/DL (3.4-5.0) Globulin 3.3 g/dL Albumin/Globulin Ratio 1.0 (1.0-2.7) Lipase 428 U/L (73-393) H C-Reactive Protein, Quantitative 2.1 mg/dL (0.00-0.90) H Height (Feet): 6 Weight (Pounds): 213 Medications Current Medications Medications (Trade) Dose Ordered Sig/Marquis Route PRN Reason Start Time Stop Time Status Last Admin Dose Admin Acetaminophen/ Hydrocodone Bitart ([place] 5/325) 1 tab Q4H PRN ORAL Moderate Pain (Pain Scale 4-6) 10/21/18 05:15 10/28/18 05:14 Amlodipine Besylate (Norvasc) 10 mg DAILY ORAL 10/22/18 09:00 11/21/18 08:59 Aspirin (Ecotrin) 81 mg DAILY ORAL 10/21/18 09:00 11/20/18 08:59 10/21/18 08:42 Docusate Sodium (Colace) 100 mg BID ORAL 10/21/18 09:00 11/20/18 08:59 10/21/18 08:41 Duloxetine HCl (Cymbalta) 90 mg DAILY ORAL 10/21/18 09:00 11/20/18 08:59 10/21/18 08:42 Etravirine (Intelence) 100 mg EVERY 12 HOURS ORAL 10/21/18 09:00 11/20/18 08:59 UNV Folic Acid (Folate) 1 mg BID ORAL 10/21/18 09:00 11/20/18 08:59 10/21/18 08:43 Hydralazine HCl (Apresoline) 25 mg Q4H PRN ORAL bp over 165 syst 10/21/18 14:30 11/20/18 14:29 Hydralazine HCl (Apresoline) 50 mg Q8HR ORAL 10/21/18 22:00 11/20/18 17:59 Insulin Detemir (Levemir) 48 units BEDTIME SUBQ 10/21/18 21:00 11/20/18 20:59 Lamotrigine (LaMICtal) 200 mg DAILY ORAL 10/21/18 09:00 11/20/18 08:59 10/21/18 08:42 Metoprolol Tartrate (Lopressor) 50 mg Q12HR ORAL 10/21/18 21:00 11/20/18 20:59 Non-Formulary Medication (Non-Formulary Med) 1 ea DAILY ORAL 10/21/18 09:00 11/20/18 08:59 UNV Pantoprazole (Protonix) 40 mg DAILY ORAL 10/21/18 15:00 11/20/18 14:59 10/21/18 15:43 Raltegravir (Isentress) 400 mg EVERY 12 HOURS ORAL 10/21/18 09:00 11/20/18 08:59 UNV Regadenoson (Lexiscan) 0.4 mg ONCE PRN IV STRESS TEST 10/21/18 13:45 10/23/18 23:59 Tamsulosin HCl (Flomax) 0.4 mg BEDTIME ORAL 10/21/18 21:00 11/20/18 20:59 Tenofovir Disoproxil Fumarate (Viread) 300 mg DAILY ORAL 10/21/18 09:00 11/20/18 08:59 UNV Assessment/Plan Problem List: (1) Elevated troponin Assessment & Plan: Patient presented with chest pain of unclear etiology Trops indeterminate and EKG without ischemic changes Cont aspirin Cardiac monitoring, r/o acs with serial ekg/trops Cardiology eval ICD Codes: R74.8 - Abnormal levels of other serum enzymes SNOMED: 795462267, 900296746, 026758316 (2) ISH (acute kidney injury) Assessment & Plan: Creat dana from 1.3 to 1.7 Nephrology consult Avoid nephrotoxic meds ICD Codes: N17.9 - Acute kidney failure, unspecified SNOMED: 99732137 (3) Uncontrolled type 2 diabetes mellitus with chronic kidney disease Assessment & Plan: ON large doses of insulin Cont sliding scale, montior sugars closely ICD Codes: E11.22 - Type 2 diabetes mellitus with diabetic chronic kidney disease; E11.65 - Type 2 diabetes mellitus with hyperglycemia SNOMED: 44782251, 705466339, 381464840 (4) Malignant hypertension Assessment & Plan: Cont antihypertensive regimen ICD Codes: I10 - Essential (primary) hypertension SNOMED: 88002515 (5) extensive ischemic cerebrovasculat disease, multple old lacunar strokes. Assessment & Plan: Cont aspirin, no evidence of stroke currently (6) HIV disease Assessment & Plan: Stable, cont HIV meds ICD Codes: B20 - Human immunodeficiency virus [HIV] disease SNOMED: 70678634 Mj Lutz MD Oct 21, 2018 16:12
[2018-10-21] MEDS ORDERED: HydrALAZINE 25mg tab ORAL SCH (18:00)
[2018-10-21] MEDS: Levemir Flexpen SUBQ SCH (21:00)
[2018-10-21] MEDS: Tamsulosin 0.4mg cap ORAL SCH (21:11)
[2018-10-21] MEDS: Metoprolol Tartrate 50mg tab ORAL SCH (21:11)
[2018-10-21] MEDS: HydrALAZINE 25mg tab ORAL SCH (21:11)
[2018-10-22] VITALS: BP 148/85
[2018-10-22 04:00] VITALS: BP 143/80
[2018-10-22] MEDS: HydrALAZINE 25mg tab ORAL SCH ×4 (05:54→21:39)
--- NOTE | 2018-10-22 07:13 | NUR ---
HAND-OFF: Report given to TESSA Hale.
--- NOTE | 2018-10-22 07:14 | NUR ---
NURSE NOTES: Received patient from TESSA Garcia. Patient in bed, alert, and awake. Verbally responsive. In room air and in no distress. color television console monitor in placed. Urinal at bedside. Bed in lowest position with side rails up. Will continue to follow plan of care.
--- NOTE | 2018-10-22 08:20 | NUR ---
TRANSFER TO FLOOR: Patient transferred to Telemetry, per Dr. Lutz. Original MD's order: was to admit patient to Telemetry. Report given to TESSA Flanagan. Belongings and medications are with the patient. RN is aware. Patient stable.
[2018-10-22 08:22] LABS: BASOPHILS % (AUTO) 0.9 % (0.0-2.0); EOSINOPHILS % (AUTO) 2.6 % (0.0-3.0); HEMATOCRIT 34.8 % (42.0-52.0); HEMOGLOBIN 11.2 G/DL (14.2-18.0); LYMPHOCYTES % (AUTO) 24.8 % (20.0-45.0); MEAN CORPUSCULAR VOLUME 85 FL (80-99); MONOCYTES % (AUTO) 8.7 % (1.0-10.0); PLATELET COUNT 233 K/UL (150-450); RED BLOOD COUNT 4.11 M/UL (4.70-6.10); RED CELL DISTRIBUTION WIDTH 15.3 % (11.6-14.8); WHITE BLOOD COUNT 3.9 K/UL (4.8-10.8)
[2018-10-22 08:35] VITALS: BP 154/80
--- NOTE | 2018-10-22 08:35 | NUR ---
NURSE NOTES: pt awake alert, no distress. no sob. call light within reach. bed in lowest position, locked. no c/o pain
[2018-10-22] MEDS: Docusate 100mg cap ORAL SCH ×2 (08:40→17:09)
[2018-10-22] MEDS: Aspirin EC 81mg tab ORAL SCH (08:40)
[2018-10-22] MEDS: DULoxetine 30mg cap ORAL SCH (08:40)
[2018-10-22] MEDS: Metoprolol Tartrate 50mg tab ORAL SCH (08:40)
--- NOTE | 2018-10-22 08:41 | NUR ---
pharmacy note: pt wants to take lamictal in evening. nurse will ask md
--- NOTE | 2018-10-22 08:53 | NUR ---
NURSE NOTES: pt states that the doctor okayed for him to take his hiv meds including victoza by himself. also confirmed with his primary nurse yesterday James Moy RN that Dr Lutz was at bedside and okayed for pt to administer own medications.
[2018-10-22 09:06] LABS: % IRON SATURATION 15 % (15-50); IRON 48 ug/dL (50-175); TOTAL IRON BINDING CAPACITY 324 ug/dL (250-450)
[2018-10-22 09:16] LABS: CREATINE KINASE 323 U/L (26-308); GAMMA GLUTAMYL TRANSPEPTIDASE 154 U/L (5-85); PHOSPHORUS 2.9 MG/DL (2.5-4.9)
[2018-10-22 09:40] LABS: ALANINE AMINOTRANSFERASE 48 U/L (12-78); ALBUMIN 3.5 G/DL (3.4-5.0); ALKALINE PHOSPHATASE 161 U/L (46-116); ANION GAP 7 mmol/L (5-15); ASPARTATE AMINO TRANSFERASE 39 U/L (15-37); BILIRUBIN,TOTAL 0.3 MG/DL (0.2-1.0); BLOOD UREA NITROGEN 20 mg/dL (7-18); CALCIUM 8.9 MG/DL (8.5-10.1); CARBON DIOXIDE 28 MMOL/L (21-32); CHLORIDE 103 MMOL/L (98-107); CHOLESTEROL 175 MG/DL (< 200); CREATININE 1.4 MG/DL (0.55-1.30); FERRITIN 29 NG/ML (8-388); HDL CHOLESTEROL 25 MG/DL (40-60); POTASSIUM 4.7 MMOL/L (3.5-5.1); SODIUM 138 MMOL/L (136-145); TRIGLYCERIDES 153 MG/DL (30-150)
--- NOTE | 2018-10-22 09:46 | NUR ---
CASE MANAGEMENT: INITIAL REVIEW 58 YO M PRESENTED TO OUR ED FROM HOME CC: CP PMHx: HTN. DM. KEARNEY. DIZZINESS. SI:ACS. T 98.1 HR 108 RR 18 B/P 150/80 SATS 94% ON RA WBC 3.8 BUN 27 CR 1.7 GLU 177 ALP 166 TOTAL CK 390 TROPONIN 0.048, 0.068 AND 0.048 LIPASE 428 IS: ASA PO X1 NITRO TOP X1 NITRO SL X1 PEPCID IV X1 TYLENOL PO X1 PATIENT ADMITTED TO TELE 10/21/2018 @ 0155 DCP: PATIENT TO BE DISCHARGED TO HOME ONCE MEDICALLY CLEARED. PLAN OF CARE: Trops indeterminate and EKG without ischemic changes Cont aspirin Cardiac monitoring, r/o acs with serial ekg/trops Cardiology eval Addendum: 10/23/18 at 2017 by Julia Parra CM INTERKEYON POOLE
--- NOTE | 2018-10-22 10:37 | NUR ---
NURSE NOTES: paged DR Lutz for the following: pt wants lamictal in the evening and sliding scale- pt takes victoza self administers but fingerstick blood sugar result is 206, no sliding scale
[2018-10-22] MEDS ORDERED: NS 275ml ONE (11:35)
[2018-10-22] MEDS ORDERED: Tubing IV Secondary IV ONE (11:35)
[2018-10-22] MEDS: NovoLOG Insulin Flexpen SUBQ SCH ×3 (12:40→21:00)
[2018-10-22] MEDS ORDERED: MAGNESIUM GLUC500 GM PO (13:16)
[2018-10-22] MEDS ORDERED: LOSARTAN POTASS25 MG ORAL (13:16)
[2018-10-22] MEDS ORDERED: VITAMIN D1000 UNI1 ORAL (13:16)
[2018-10-22] MEDS ORDERED: STARLIX120 MG ORAL (13:16)
[2018-10-22 13:19] VITALS: BP 162/101
[2018-10-22] MEDS ORDERED: ISENTRESS400 MG ORAL (13:21)
[2018-10-22] MEDS ORDERED: MUCINEX DM ER1 EAC1 PO (13:22)
--- NOTE | 2018-10-22 13:23 | General Progress Note ---
Assessment/Plan Problem List: (1) Elevated troponin Assessment & Plan: Patient presented with chest pain of unclear etiology Trops indeterminate and EKG without ischemic changes Cont aspirin Cardiac monitoring, r/o acs with serial ekg/trops (downtrending) Cardiology eval appreciated Echo unchanged Stress test tomorrow ICD Codes: R74.8 - Abnormal levels of other serum enzymes SNOMED: 337351348, 894116135, 570264672 (2) ISH (acute kidney injury) Assessment & Plan: Creat dana from 1.3 to 1.7 Today back down to 1.4 Nephrology consult appreciated Agree with holding SANTOSH/ARB Avoid nephrotoxic meds ICD Codes: N17.9 - Acute kidney failure, unspecified SNOMED: 68349971 (3) Uncontrolled type 2 diabetes mellitus with chronic kidney disease Assessment & Plan: ON large doses of insulin Cont sliding scale, montior sugars closely Cont starlix, pt adamant about taking his own victoza Counseled him against it given risk of hypoglycemia in house ICD Codes: E11.22 - Type 2 diabetes mellitus with diabetic chronic kidney disease; E11.65 - Type 2 diabetes mellitus with hyperglycemia SNOMED: 44466689, 082078589, 955488234 (4) Malignant hypertension Assessment & Plan: Cont antihypertensive regimen Agree with dc of santosh/arb given ISH ICD Codes: I10 - Essential (primary) hypertension SNOMED: 10055162 (5) extensive ischemic cerebrovasculat disease, multple old lacunar strokes. Assessment & Plan: Cont aspirin, no evidence of stroke currently (6) HIV disease Assessment & Plan: Stable, cont HIV meds ICD Codes: B20 - Human immunodeficiency virus [HIV] disease SNOMED: 40811963 Subjective Date patient seen: Oct 22, 2018 Time patient seen: 13:20 ROS Limited/Unobtainable: No Allergies: Coded Allergies: No Known Allergies (Unverified , 02/05/13) Subjective No further chest pain, no dyspnea, uneventful night. Complaints include diet ad being started on a "prostate medication." Objective Last 24 Hour Vital Signs Date Time Temp Pulse Resp B/P (MAP) Pulse Ox O2 Delivery O2 Flow Rate FiO2 10/22/18 09:00 Room Air 10/22/18 08:40 92 154/80 10/22/18 08:40 92 154/80 10/22/18 08:35 98.1 92 20 154/80 (104) 97 10/22/18 07:55 92 10/22/18 05:54 148/86 10/22/18 04:00 89 10/22/18 04:00 98.1 88 20 143/80 (101) 97 10/22/18 00:00 99.0 97 20 148/85 (106) 98 10/22/18 00:00 87 10/21/18 21:11 99 154/89 10/21/18 21:11 154/89 10/21/18 21:00 Room Air 10/21/18 20:00 99 10/21/18 20:00 98.5 99 20 154/89 (110) 97 10/21/18 16:00 89 10/21/18 16:00 98.1 87 17 149/87 (107) 99 Intake and Output 10/21/18 10/22/18 19:00 07:00 Intake Total 600 ml 240 ml Balance 600 ml 240 ml Intake Oral 600 ml 240 ml # Voids 2 1 Laboratory Tests 10/22/18 06:00: Urine Opiates Screen Negative, Urine Barbiturates Screen PositiveH, Phencyclidine (PCP) Screen Negative, Urine Amphetamines Screen Negative, Urine Benzodiazepines Screen Negative, Urine Cocaine Screen Negative, Urine Marijuana (THC) Screen Negative 10/22/18 07:28: White Blood Count 3.9L, Red Blood Count 4.11L, Hemoglobin 11.2L, Hematocrit 34.8L, Mean Corpuscular Volume 85, Mean Corpuscular Hemoglobin 27.3, Mean Corpuscular Hemoglobin Concent 32.1, Red Cell Distribution Width 15.3H, Platelet Count 233, Mean Platelet Volume 5.3L, Neutrophils (%) (Auto) 63.0, Lymphocytes (%) (Auto) 24.8, Monocytes (%) (Auto) 8.7, Eosinophils (%) (Auto) 2.6, Basophils (%) (Auto) 0.9, Sodium Level 138, Potassium Level 4.7, Chloride Level 103, Carbon Dioxide Level 28, Anion Gap 7, Blood Urea Nitrogen 20H, Creatinine 1.4H, Estimat Glomerular Filtration Rate 51.9, Glucose Level 110H, Hemoglobin A1c 8.1H, Uric Acid 6.8, Calcium Level 8.9, Phosphorus Level 2.9, Magnesium Level 2.0, Iron Level 48L, Total Iron Binding Capacity 324, Percent Iron Saturation 15, Unsaturated Iron Binding 276, Ferritin 29, Total Bilirubin 0.3, Gamma Glutamyl Transpeptidase 154H, Aspartate Amino Transf (AST/SGOT) 39H, Alanine Aminotransferase (ALT/SGPT) 48, Alkaline Phosphatase 161H, Total Creatine Kinase 323H, Troponin I 0.040, Pro-B-Type Natriuretic Peptide 270H, Total Protein 7.1, Albumin 3.5, Globulin 3.6, Albumin/Globulin Ratio 1.0, Triglycerides Level 153H, Cholesterol Level 175, LDL Cholesterol 120H, HDL Cholesterol 25L, Cholesterol/HDL Ratio 7.0H, Lipase 285, Vitamin B12 Level 641, Folate 36.7, Thyroid Stimulating Hormone (TSH) 2.331 Height (Feet): 6 Weight (Pounds): 213 Objective General: alert, cooperative, no distress, appears stated age Head: normocephalic, without obvious abnormality, atraumatic Eyes: conjunctivae/corneas clear. PERRL, EOM's intact Throat: lips, mucosa, and tongue normal. MMM Neck: supple, symmetrical, trachea midline, and no JVD Lungs: clear to auscultation bilaterally Heart: regular rate and rhythm, S1, S2 normal, no murmur, click, rub or gallop Abdomen: soft, non-tender, non-distended, bowel sounds normal; no masses or organomegaly Extremities: extremities normal, atraumatic, no cyanosis or edema Pulses: 2+ and symmetric Skin: skin color, texture, turgor normal; no rashes or lesions Neurologic: grossly normal, no focal deficits Mj Lutz MD Oct 22, 2018 13:23
--- NOTE | 2018-10-22 13:40 | Nephrology Progress Note ---
Assessment/Plan Problem List: (1) Diabetic nephropathy (2) Renal insufficiency (3) Diabetes (4) Hypertension Assessment: OOC (5) Anemia Assessment CKD Cr 1.7 down to 1.4 Diabetic Nephropathy, 2+ proteinuria 20 y on Insulin for DM has HTN Anemia of CKD? High Lipase Plan stop Naprosyn adjust BP meds Flomax HS Protonix Anemia navarrete lipid panel and Hgb A1c urine tox screen Subjective ROS Limited/Unobtainable: No Objective Objective Last 24 Hour Vital Signs Date Time Temp Pulse Resp B/P (MAP) Pulse Ox O2 Delivery O2 Flow Rate FiO2 10/22/18 13:25 162/101 10/22/18 13:19 98.1 90 20 162/101 (121) 97 10/22/18 11:58 85 10/22/18 09:00 Room Air 10/22/18 08:40 92 154/80 10/22/18 08:40 92 154/80 10/22/18 08:35 98.1 92 20 154/80 (104) 97 10/22/18 07:55 92 10/22/18 05:54 148/86 10/22/18 04:00 89 10/22/18 04:00 98.1 88 20 143/80 (101) 97 10/22/18 00:00 99.0 97 20 148/85 (106) 98 10/22/18 00:00 87 10/21/18 21:11 99 154/89 10/21/18 21:11 154/89 10/21/18 21:00 Room Air 10/21/18 20:00 99 10/21/18 20:00 98.5 99 20 154/89 (110) 97 10/21/18 16:00 89 10/21/18 16:00 98.1 87 17 149/87 (107) 99 Intake and Output 10/21/18 10/22/18 19:00 07:00 Intake Total 600 ml 240 ml Balance 600 ml 240 ml Intake Oral 600 ml 240 ml # Voids 2 1 Laboratory Tests 10/22/18 06:00: Urine Opiates Screen Negative, Urine Barbiturates Screen PositiveH, Phencyclidine (PCP) Screen Negative, Urine Amphetamines Screen Negative, Urine Benzodiazepines Screen Negative, Urine Cocaine Screen Negative, Urine Marijuana (THC) Screen Negative 10/22/18 07:28: White Blood Count 3.9L, Red Blood Count 4.11L, Hemoglobin 11.2L, Hematocrit 34.8L, Mean Corpuscular Volume 85, Mean Corpuscular Hemoglobin 27.3, Mean Corpuscular Hemoglobin Concent 32.1, Red Cell Distribution Width 15.3H, Platelet Count 233, Mean Platelet Volume 5.3L, Neutrophils (%) (Auto) 63.0, Lymphocytes (%) (Auto) 24.8, Monocytes (%) (Auto) 8.7, Eosinophils (%) (Auto) 2.6, Basophils (%) (Auto) 0.9, Sodium Level 138, Potassium Level 4.7, Chloride Level 103, Carbon Dioxide Level 28, Anion Gap 7, Blood Urea Nitrogen 20H, Creatinine 1.4H, Estimat Glomerular Filtration Rate 51.9, Glucose Level 110H, Hemoglobin A1c 8.1H, Uric Acid 6.8, Calcium Level 8.9, Phosphorus Level 2.9, Magnesium Level 2.0, Iron Level 48L, Total Iron Binding Capacity 324, Percent Iron Saturation 15, Unsaturated Iron Binding 276, Ferritin 29, Total Bilirubin 0.3, Gamma Glutamyl Transpeptidase 154H, Aspartate Amino Transf (AST/SGOT) 39H, Alanine Aminotransferase (ALT/SGPT) 48, Alkaline Phosphatase 161H, Total Creatine Kinase 323H, Troponin I 0.040, Pro-B-Type Natriuretic Peptide 270H, Total Protein 7.1, Albumin 3.5, Globulin 3.6, Albumin/Globulin Ratio 1.0, Triglycerides Level 153H, Cholesterol Level 175, LDL Cholesterol 120H, HDL Cholesterol 25L, Cholesterol/HDL Ratio 7.0H, Lipase 285, Vitamin B12 Level 641, Folate 36.7, Thyroid Stimulating Hormone (TSH) 2.331 Height (Feet): 6 Weight (Pounds): 213 General Appearance: no apparent distress Neck: normal alignment Cardiovascular: tachycardia Respiratory/Chest: decreased breath sounds Abdomen: soft Mike Mcdonald MD Oct 22, 2018 13:39
--- NOTE | 2018-10-22 15:31 | NUR ---
NURSE NOTES: Pt awake alert, no distress. no sob. call light within reach. will monitor.
[2018-10-22 15:44] VITALS: BP 145/83
--- NOTE | 2018-10-22 16:38 | Cardiology Progress Note ---
Assessment/Plan Status: stable Assessment/Plan Assessment/Plan Status: stable Assessment/Plan Assessment Chest pain Hypertensive urgency Elevated troponin Sinus tachycardia DM CKD HTN HLD HIV Medication non compliance lacular infarcts, CVA Plan Previous TTE with normal LV function but hypertensive heart disease and LVH with elevated filling pressures Low salt diet, cardiac rehab Ensure medication compliance Stress test given cardiac risk factors, elevated troponin, symptoms, EKG no ischemia currently/hold heparin Nitro prn chest pain d/c losartan and aldactone - ISH/CKD elevated creatinine Aspirin given hx of lacunar CVA Start norvasc 10 mg Start hydralazine 25 mg TID Adjust BP medications as needed Further recommendations to follow Subjective Cardiovascular: Reports: no symptoms Respiratory: Reports: no symptoms Gastrointestinal/Abdominal: Reports: no symptoms Genitourinary: Reports: no symptoms Subjective No acute events, no resting chest pain, vitals stable, troponin unremarkable, for stress test in AM Objective Last 24 Hour Vital Signs Date Time Temp Pulse Resp B/P (MAP) Pulse Ox O2 Delivery O2 Flow Rate FiO2 10/22/18 15:44 98.1 86 20 145/83 (103) 97 10/22/18 13:25 162/101 10/22/18 13:19 98.1 90 20 162/101 (121) 97 10/22/18 11:58 85 10/22/18 09:00 Room Air 10/22/18 08:40 92 154/80 10/22/18 08:40 92 154/80 10/22/18 08:35 98.1 92 20 154/80 (104) 97 10/22/18 07:55 92 10/22/18 05:54 148/86 10/22/18 04:00 89 10/22/18 04:00 98.1 88 20 143/80 (101) 97 10/22/18 00:00 99.0 97 20 148/85 (106) 98 10/22/18 00:00 87 10/21/18 21:11 99 154/89 10/21/18 21:11 154/89 10/21/18 21:00 Room Air 10/21/18 20:00 99 10/21/18 20:00 98.5 99 20 154/89 (110) 97 General Appearance: no apparent distress, alert EENT: PERRL/EOMI, normal ENT inspection, TMs normal, pharynx normal Neck: non-tender, normal alignment, supple, normal inspection, no JVD Rhythm: NSR Cardiovascular: normal peripheral pulses, normal rate Respiratory/Chest: chest wall non-tender, lungs clear, normal breath sounds, no respiratory distress, no accessory muscle use Abdomen: normal bowel sounds, non tender, soft, no organomegaly, no mass Extremities: normal range of motion, non-tender Neurologic: measurement coordinator II-XII grossly normal, no motor/sensory deficits Intake and Output 10/21/18 10/22/18 19:00 07:00 Intake Total 600 ml 240 ml Balance 600 ml 240 ml Intake Oral 600 ml 240 ml # Voids 2 1 Laboratory Tests Test 10/22/18 06:00 10/22/18 07:28 Urine Opiates Screen Negative (NEGATIVE) Urine Barbiturates Screen Positive (NEGATIVE) H Phencyclidine (PCP) Screen Negative (NEGATIVE) Urine Amphetamines Screen Negative (NEGATIVE) Urine Benzodiazepines Screen Negative (NEGATIVE) Urine Cocaine Screen Negative (NEGATIVE) Urine Marijuana (THC) Screen Negative (NEGATIVE) White Blood Count 3.9 K/UL (4.8-10.8) L Red Blood Count 4.11 M/UL (4.70-6.10) L Hemoglobin 11.2 G/DL (14.2-18.0) L Hematocrit 34.8 % (42.0-52.0) L Mean Corpuscular Volume 85 FL (80-99) Mean Corpuscular Hemoglobin 27.3 PG (27.0-31.0) Mean Corpuscular Hemoglobin Concent 32.1 G/DL (32.0-36.0) Red Cell Distribution Width 15.3 % (11.6-14.8) H Platelet Count 233 K/UL (150-450) Mean Platelet Volume 5.3 FL (6.5-10.1) L Neutrophils (%) (Auto) 63.0 % (45.0-75.0) Lymphocytes (%) (Auto) 24.8 % (20.0-45.0) Monocytes (%) (Auto) 8.7 % (1.0-10.0) Eosinophils (%) (Auto) 2.6 % (0.0-3.0) Basophils (%) (Auto) 0.9 % (0.0-2.0) Sodium Level 138 MMOL/L (136-145) Potassium Level 4.7 MMOL/L (3.5-5.1) Chloride Level 103 MMOL/L (98-107) Carbon Dioxide Level 28 MMOL/L (21-32) Anion Gap 7 mmol/L (5-15) Blood Urea Nitrogen 20 mg/dL (7-18) H Creatinine 1.4 MG/DL (0.55-1.30) H Estimat Glomerular Filtration Rate 51.9 mL/min (>60) Glucose Level 110 MG/DL (74-106) H Hemoglobin A1c 8.1 % (4.3-6.0) H Uric Acid 6.8 MG/DL (2.6-7.2) Calcium Level 8.9 MG/DL (8.5-10.1) Phosphorus Level 2.9 MG/DL (2.5-4.9) Magnesium Level 2.0 MG/DL (1.8-2.4) Iron Level 48 ug/dL (50-175) L Total Iron Binding Capacity 324 ug/dL (250-450) Percent Iron Saturation 15 % (15-50) Unsaturated Iron Binding 276 ug/dL (112-346) Ferritin 29 NG/ML (8-388) Total Bilirubin 0.3 MG/DL (0.2-1.0) Gamma Glutamyl Transpeptidase 154 U/L (5-85) H Aspartate Amino Transf (AST/SGOT) 39 U/L (15-37) H Alanine Aminotransferase (ALT/SGPT) 48 U/L (12-78) Alkaline Phosphatase 161 U/L (46-116) H Total Creatine Kinase 323 U/L (26-308) H Troponin I 0.040 ng/mL (0.000-0.056) C-Reactive Protein, Quantitative 1.3 mg/dL (0.00-0.90) H Pro-B-Type Natriuretic Peptide 270 pg/mL (0-125) H Total Protein 7.1 G/DL (6.4-8.2) Albumin 3.5 G/DL (3.4-5.0) Globulin 3.6 g/dL Albumin/Globulin Ratio 1.0 (1.0-2.7) Triglycerides Level 153 MG/DL (30-150) H Cholesterol Level 175 MG/DL (< 200) LDL Cholesterol 120 mg/dL (<100) H HDL Cholesterol 25 MG/DL (40-60) L Cholesterol/HDL Ratio 7.0 (3.3-4.4) H Lipase 285 U/L (73-393) Vitamin B12 Level 641 PG/ML (193-986) Folate 36.7 NG/ML (8.6-58.9) Thyroid Stimulating Hormone (TSH) 2.331 uiU/mL (0.358-3.740) Salty Arias MD Oct 22, 2018 16:38
[2018-10-22] MEDS ORDERED: Venlafaxine XR 150mg cap ORAL SCH (18:00)
--- NOTE | 2018-10-22 19:14 | NUR ---
HAND-OFF: Report given to PAULA ZARATE.
[2018-10-22 20:00] VITALS: BP 156/83
--- NOTE | 2018-10-22 20:12 | NUR ---
NURSE NOTES: RECEIVED PATIENT RESTING IN BED, NO COMPLAINTS OF PAIN AT THIS TIME. FALL PRECAUTIONS IN PLACE: CALL LIGHT, BEDSIDE TABLE AND URINAL WITHIN REACH, BED IN LOW POSITION. PLAN OF CARE REVIEWED.
[2018-10-22] MEDS: Levemir Flexpen SUBQ SCH (21:00)
[2018-10-22] MEDS: Tamsulosin 0.4mg cap ORAL SCH ×2 (21:00→21:34)
[2018-10-22] MEDS ORDERED: OXcarbazepine 150mg tab ORAL SCH (21:00)
--- NOTE | 2018-10-22 21:00 | NUR ---
NURSE NOTES: INSTRUCTED PATIENT ON NPO STATUS AFTER MIDNIGHT FOR STRESS TEST IN AM. PATIENT VERBALIZED UNDERSTANDING.
[2018-10-23] VITALS: BP 161/94
[2018-10-23 04:00] VITALS: BP 159/87
[2018-10-23] MEDS: HydrALAZINE 25mg tab ORAL SCH ×2 (06:00→13:19)
[2018-10-23] MEDS: NovoLOG Insulin Flexpen SUBQ SCH ×3 (06:27→16:30)
--- NOTE | 2018-10-23 07:19 | NUR ---
NURSE NOTES: Received patient report from TESSA Fowler. Patient is sitting in bed. Patient denies pain at this time. Patient is breathing even and unlabored. Patient is on heart monitor. Call light within reach, side rails x2 up, and bed in lowest position. Will follow up with plan of care for levar today. Patient states he has not eat or drink since post midnight.
--- NOTE | 2018-10-23 07:26 | NUR ---
HAND-OFF: Report given to TESSA MARIE. PATIENT RESTING IN BED, NO SIGNS OF DISTRESS NOTED.
[2018-10-23 08:00] VITALS: BP 143/83
[2018-10-23 08:17] LABS: ALANINE AMINOTRANSFERASE 54 U/L (12-78); ALBUMIN 3.1 G/DL (3.4-5.0); ALBUMIN/GLOBULIN RATIO 0.8 (1.0-2.7); ALKALINE PHOSPHATASE 151 U/L (46-116); ANION GAP 6 mmol/L (5-15); ASPARTATE AMINO TRANSFERASE 40 U/L (15-37); BILIRUBIN,TOTAL 0.3 MG/DL (0.2-1.0); BLOOD UREA NITROGEN 18 mg/dL (7-18); CARBON DIOXIDE 28 MMOL/L (21-32); CHLORIDE 104 MMOL/L (98-107); CREATININE 1.4 MG/DL (0.55-1.30); POTASSIUM 4.6 MMOL/L (3.5-5.1); SODIUM 138 MMOL/L (136-145)
[2018-10-23] MEDS: Aspirin EC 81mg tab ORAL SCH (08:19)
[2018-10-23] MEDS ORDERED: BuPROPion SR 100mg tab ORAL SCH (09:00)
[2018-10-23] MEDS: Docusate 100mg cap ORAL SCH ×2 (09:01→18:00)
[2018-10-23] MEDS: DULoxetine 30mg cap ORAL SCH (09:02)
--- NOTE | 2018-10-23 11:25 | NUR ---
DISCHARGE PLANNING PARKING ENFORCEMENT MANAGER SPOKE WITH PATIENT AT BEDSIDE MR MARTE STATED HE LIVES IN HIS CAR AND WOULD LIKE TO RETURN TO HIS CAR UPON DISCHARGE HE IS ALERT, ORIENTED AND INDEPENDENT
[2018-10-23 12:00] VITALS: BP 138/83
--- NOTE | 2018-10-23 13:03 | NUR ---
Social Service Note SW met with patient to assess for homelessness. Patient is alert, oriented and verbally responsive. Patient states he is currently residing in his car. Patient states he has a section 8 voucher however is not going to settle on an apartment in an area which is unsafe or not familiar. Patient states he is ok residing in his car. Patient states he has utilized parking lots were friends reside and the senior etl developer of his episcop[employer] invited him to park in their lot if needed. SW discussed the safe parking [place] program and provided contact information for program. Patient has a PCP Dr. Elton Vanessa. SW contacted clinic to arrange a follow up appointment. Due to his clinic being a LGBTQ clinic would not allow SW to arrange follow up appointment due to confidentiality practices at clinic. Patient will need to schedule follow up appointment, [address] [place] [id number], . Patient's emergency contact is his mother Bruna Walters [phone]. Patient states he is a member of a gym which he utilizes daily for morning work outs and hygiene care. Patient's car is in [facility] lot and upon discharge patient will drive himself to his next location. Homeless checklist placed in chart and discussed with primary nurse. Anticipated dc for today pending test results.
--- NOTE | 2018-10-23 13:04 | Consultation ---
History of Present Illness General Date patient seen: Oct 21, 2018 Chief Complaint: Chest Pain Present Illness HPI 58 y/o man with hx of HIV, depression and anxiety who presents with intermittent L sided chest pain. the pt pw depressed mood, anxiety and insomnia. the pt has no si/hi. the pt state that he takes barbiturates for anxiety however didn't know who was prescribing the medication. the pt stated that he would not take abilify and welbutrin and wanted those meds to be readjusted. the pt does not endorse si/hi Allergies: Coded Allergies: No Known Allergies (Unverified , 02/05/13) Medication History Scheduled Amlodipine Besylate (Norvasc), 10 MG ORAL DAILY Aspirin Ec* (Aspirin Ec*), 81 MG ORAL DAILY Atorvastatin Calcium* (Lipitor*), 10 MG ORAL BEDTIME Cholecalciferol (Vitamin D3)* (Vitamin D*), 1,000 UNITS ORAL DAILY, (Reported) Duloxetine Hcl* (Cymbalta*), 90 MG ORAL DAILY, (Reported) Etravirine* (Intelence*), 400 MG ORAL DAILY, (Reported) Folic Acid (Folic Acid), 2 MG PO DAILY, (Reported) Hydralazine Hcl* (Hydralazine Hcl*), 25 MG ORAL Q8HR Lamotrigine (Lamotrigine), 200 MG PO QHS, (Reported) Magnesium Gluconate (Magnesium Gluconate), 500 GM PO DAILY, (Reported) Metoprolol Tartrate* (Metoprolol Tartrate*), 100 MG ORAL Q12HR Nateglinide (Starlix), 120 MG ORAL THREE TIMES A DAY, (Reported) Raltegravir (Isentress), 400 MG ORAL BID, (Reported) Tenofovir Disoproxil Fumarate* (Viread*), 300 MG ORAL DAILY, (Reported) Scheduled PRN Docusate Sodium (Docusate Sodium), 100 MG ORAL TWICE A DAY PRN for Constipation, (Reported) Miscellaneous Medications Biotin (Biotin), 5,000 MCG PO, (Reported) Guaifenesin/Dextromethorphan (Mucinex Dm Er 600-30 Mg Tablet), 1 EACH PO, ( Reported) Discontinued Medications Amlodipine Besylate (Norvasc), 5 MG ORAL BID Discontinued Reason: Pt had allergic rxn Aripiprazole* (Abilify*), 2.5 MG ORAL DAILY, (Reported) Discontinued Reason: Pt stopped taking med Atenolol (Tenormin), 50 MG ORAL DAILY, (Reported) Discontinued Reason: MD discontinued med Atorvastatin Calcium* (Lipitor*), 10 MG ORAL BEDTIME Discontinued Reason: Pt stopped taking med Bacitracin Zinc* (Bacitracin Zinc*), 1 APPLIC TOPIC THREE TIMES A DAY Discontinued Reason: Pt stopped taking med Bupropion HCl (Wellbutrin), 100 MG ORAL DAILY, (Reported) Discontinued Reason: Pt stopped taking med Butalbital/Aspirin/Caffeine (Bexunxrlbh-Swc-Xvckwuek Cap), 1 EACH PO, (Reported) Discontinued Reason: Pt stopped taking med Hum Insulin Nph/Reg Insulin Hm (Humulin 70-30 Pen), 0 SUBQ BID, (Reported) Discontinued Reason: Pt stopped taking med Insulin Glargine (Lantus), 48 SUBQ BEDTIME, (Reported) Discontinued Reason: Pt stopped taking med Labetalol HCl (Labetalol HCl), 200 MG ORAL Q12HR Discontinued Reason: Pt stopped taking med Liraglutide (Victoza 2-Oleg), 1.2 MG SUBQ DAILY, (Reported) Discontinued Reason: Pt stopped taking med Lisinopril (Lisinopril*), 20 MG ORAL BID Discontinued Reason: Pt stopped taking med Lisinopril* (Lisinopril*), 20 MG ORAL DAILY, (Reported) Discontinued Reason: Pt stopped taking med Losartan Potassium (Losartan Potassium), 25 MG ORAL DAILY, (Reported) Discontinued Reason: Prescription changed Losartan Potassium* (Losartan Potassium*), 75 MG ORAL DAILY, (Reported) Discontinued Reason: MD discontinued med Magnesium Oxide (Magnesium), 500 MG PO, (Reported) Discontinued Reason: Prescription changed Naproxen* (Naprosyn*), 500 MG ORAL TWICE A DAY PRN for For Pain, (Reported) Discontinued Reason: MD discontinued med Oxcarbazepine* (Trileptal*), 750 MG PO BEDTIME, (Reported) Discontinued Reason: Pt stopped taking med Venlafaxine Hcl* (Effexor Xr*), 300 MG ORAL BID, (Reported) Discontinued Reason: Pt stopped taking med Patient History History Provided By: Patient, Medical Record, PMD Healthcare decision maker SELF Resuscitation status Advanced Directive on File No Past Medical/Surgical History Past Medical/Surgical History: (1) Hyponatremia (2) Abnormal EKG (3) Multiple lacunar infarcts (4) Dizziness of unknown cause (5) Hypertensive encephalopathy (6) r/o cerebellar stroke (7) acute ischemic SERVER SECURITY ADMINISTRATOR stroke, bylateral (8) Bylateral SERVER SECURITY ADMINISTRATOR severe stenosis (9) acute small R pontomedullary and left cerebellar peduncle strokes. (10) Foot ulcer (11) HIV disease (12) Psoriasis (13) Malignant hypertension (14) extensive ischemic cerebrovasculat disease, multple old lacunar strokes. (15) ISH (acute kidney injury) (16) Diabetic nephropathy (17) Anemia (18) Hypertension (19) Uncontrolled type 2 diabetes mellitus with chronic kidney disease Review of Systems Psychiatric: Reports: prior hx, anxiety, depressed feelings, emotional problems Physical Exam General Appearance: WD/WN, no apparent distress, alert Neurologic: oriented x 3, responsive, depressed affect Last 24 Hour Vital Signs Date Time Temp Pulse Resp B/P (MAP) Pulse Ox O2 Delivery O2 Flow Rate FiO2 10/23/18 09:02 82 143/83 10/23/18 08:50 Room Air 10/23/18 08:31 82 143/83 10/23/18 08:00 98.5 82 18 143/83 (103) 97 10/23/18 07:33 81 10/23/18 04:00 97.5 90 20 159/87 (111) 97 10/23/18 04:00 87 10/23/18 00:00 97.7 94 20 161/94 (116) 94 10/23/18 00:00 92 10/22/18 21:39 156/83 10/22/18 21:37 80 153/83 10/22/18 21:00 Room Air 10/22/18 20:00 91 10/22/18 20:00 98.2 80 20 156/83 (107) 93 10/22/18 15:44 98.1 86 20 145/83 (103) 97 10/22/18 15:35 86 10/22/18 13:25 162/101 10/22/18 13:19 98.1 90 20 162/101 (121) 97 Intake and Output 10/22/18 10/23/18 18:59 06:59 Intake Total 490 ml 120 ml Balance 490 ml 120 ml Intake Oral 490 ml 120 ml # Voids 4 2 Laboratory Tests Test 10/23/18 06:30 Sodium Level 138 MMOL/L (136-145) Potassium Level 4.6 MMOL/L (3.5-5.1) Chloride Level 104 MMOL/L (98-107) Carbon Dioxide Level 28 MMOL/L (21-32) Anion Gap 6 mmol/L (5-15) Blood Urea Nitrogen 18 mg/dL (7-18) Creatinine 1.4 MG/DL (0.55-1.30) H Estimat Glomerular Filtration Rate 51.9 mL/min (>60) Glucose Level 136 MG/DL (74-106) H Calcium Level 9.0 MG/DL (8.5-10.1) Phosphorus Level 3.0 MG/DL (2.5-4.9) Magnesium Level 2.0 MG/DL (1.8-2.4) Total Bilirubin 0.3 MG/DL (0.2-1.0) Aspartate Amino Transf (AST/SGOT) 40 U/L (15-37) H Alanine Aminotransferase (ALT/SGPT) 54 U/L (12-78) Alkaline Phosphatase 151 U/L (46-116) H Troponin I 0.008 ng/mL (0.000-0.056) Pro-B-Type Natriuretic Peptide 191 pg/mL (0-125) H Total Protein 6.8 G/DL (6.4-8.2) Albumin 3.1 G/DL (3.4-5.0) L Globulin 3.7 g/dL Albumin/Globulin Ratio 0.8 (1.0-2.7) L Height (Feet): 6 Weight (Pounds): 213 Medications Current Medications Medications (Trade) Dose Ordered Sig/Marquis Route PRN Reason Start Time Stop Time Status Last Admin Dose Admin Acetaminophen/ Hydrocodone Bitart (Cameron 5/325) 1 tab Q4H PRN ORAL Moderate Pain (Pain Scale 4-6) 10/21/18 05:15 10/28/18 05:14 Amlodipine Besylate (Norvasc) 10 mg DAILY ORAL 10/23/18 09:00 11/21/18 08:59 10/23/18 09:02 Aripiprazole (Abilify) 2.5 mg DAILY ORAL 10/23/18 09:00 11/22/18 08:59 Aspirin (Ecotrin) 81 mg DAILY ORAL 10/21/18 09:00 11/20/18 08:59 10/22/18 08:40 Atorvastatin Calcium (Lipitor) 10 mg BEDTIME ORAL 10/22/18 21:00 11/21/18 20:59 10/22/18 21:36 Bupropion HCl (Wellbutrin SR) 100 mg DAILY ORAL 10/23/18 09:00 11/22/18 08:59 Dextrose (Dextrose 50%) 25 ml Q30M PRN IV Hypoglycemia 10/22/18 12:15 11/21/18 12:14 Dextrose (Dextrose 50%) 50 ml Q30M PRN IV Hypoglycemia 10/22/18 12:15 11/21/18 12:14 Docusate Sodium (Colace) 100 mg BID ORAL 10/21/18 09:00 11/20/18 08:59 10/23/18 09:01 Duloxetine HCl (Cymbalta) 90 mg DAILY ORAL 10/21/18 09:00 11/20/18 08:59 10/23/18 09:02 Hydralazine HCl (Apresoline) 25 mg Q4H PRN ORAL bp over 165 syst 10/21/18 14:30 11/20/18 14:29 Hydralazine HCl (Apresoline) 75 mg Q8HR ORAL 10/22/18 14:00 11/20/18 17:59 10/22/18 21:39 Insulin Aspart (NovoLOG) BEFORE MEALS AND HS SUBQ 10/22/18 13:30 11/21/18 13:29 10/22/18 12:40 Insulin Detemir (Levemir) 48 units BEDTIME SUBQ 10/21/18 21:00 11/20/18 20:59 Lamotrigine (LaMICtal) 200 mg QHS ORAL 10/22/18 21:00 11/20/18 08:59 10/22/18 21:36 Metoprolol Tartrate (Lopressor) 100 mg Q12HR ORAL 10/22/18 21:00 11/20/18 20:59 10/22/18 21:37 Nateglinide (Starlix) 120 mg TIAC ORAL 10/22/18 16:30 11/21/18 16:29 10/23/18 12:56 Non-Formulary Medication (Non-Formulary Med) ea DAILY ORAL 10/21/18 09:00 11/20/18 08:59 UNV Oxcarbazepine (Trileptal) 150 mg BEDTIME ORAL 10/22/18 21:00 11/21/18 20:59 Oxcarbazepine (Trileptal) 600 mg BEDTIME ORAL 10/22/18 21:00 11/21/18 20:59 Pantoprazole (Protonix) 40 mg DAILY ORAL 10/21/18 15:00 11/20/18 14:59 10/23/18 09:02 Patient Own Medication (Patient's Own Med) 1 ea BID ORAL 10/23/18 18:00 11/22/18 17:59 Patient Own Medication (Patient's Own Med) 1 ea DAILY ORAL 10/24/18 09:00 11/23/18 08:59 Patient Own Medication (Patient's Own Med) 2 ea DAILY ORAL 10/24/18 09:00 11/23/18 08:59 Regadenoson (Lexiscan) 0.4 mg ONCE PRN IV STRESS TEST 10/21/18 13:45 10/23/18 23:59 Tamsulosin HCl (Flomax) 0.4 mg BEDTIME ORAL 10/21/18 21:00 11/20/18 20:59 10/21/18 21:11 Assessment/Plan Problem List: (1) MDD (major depressive disorder), recurrent episode, moderate ICD Codes: F33.1 - Major depressive disorder, recurrent, moderate SNOMED: 85403133, [id number] Assessment/Plan aury Rivera dc Wellbutrin cont Cymbalta cont Topamax Jarret Edgar MD Oct 23, 2018 13:04
--- NOTE | 2018-10-23 14:08 | Nephrology Progress Note ---
Assessment/Plan Problem List: (1) Diabetic nephropathy (2) Renal insufficiency (3) Diabetes (4) Hypertension Assessment: OOC (5) Anemia Assessment CKD Cr 1.7 down to 1.4 Diabetic Nephropathy, 2+ proteinuria 20 y on Insulin for DM has HTN Anemia of CKD? High Lipase Plan no labs today stop Naprosyn adjust BP meds Flomax HS Protonix Anemia navarrete lipid panel and Hgb A1c urine tox screen Subjective ROS Limited/Unobtainable: No Objective Objective Last 24 Hour Vital Signs Date Time Temp Pulse Resp B/P (MAP) Pulse Ox O2 Delivery O2 Flow Rate FiO2 10/23/18 09:02 82 143/83 10/23/18 08:50 Room Air 10/23/18 08:31 82 143/83 10/23/18 08:00 98.5 82 18 143/83 (103) 97 10/23/18 07:33 81 10/23/18 04:00 97.5 90 20 159/87 (111) 97 10/23/18 04:00 87 10/23/18 00:00 97.7 94 20 161/94 (116) 94 10/23/18 00:00 92 10/22/18 21:39 156/83 10/22/18 21:37 80 153/83 10/22/18 21:00 Room Air 10/22/18 20:00 91 10/22/18 20:00 98.2 80 20 156/83 (107) 93 10/22/18 15:44 98.1 86 20 145/83 (103) 97 10/22/18 15:35 86 Intake and Output 10/22/18 10/23/18 18:59 06:59 Intake Total 490 ml 120 ml Balance 490 ml 120 ml Intake Oral 490 ml 120 ml # Voids 4 2 Laboratory Tests 10/23/18 06:30: Sodium Level 138, Potassium Level 4.6, Chloride Level 104, Carbon Dioxide Level 28, Anion Gap 6, Blood Urea Nitrogen 18, Creatinine 1.4H, Estimat Glomerular Filtration Rate 51.9, Glucose Level 136H, Calcium Level 9.0, Phosphorus Level 3.0, Magnesium Level 2.0, Total Bilirubin 0.3, Aspartate Amino Transf (AST/SGOT ) 40H, Alanine Aminotransferase (ALT/SGPT) 54, Alkaline Phosphatase 151H, Troponin I 0.008, Pro-B-Type Natriuretic Peptide 191H, Total Protein 6.8, Albumin 3.1L, Globulin 3.7, Albumin/Globulin Ratio 0.8L Height (Feet): 6 Weight (Pounds): 213 General Appearance: no apparent distress Objective no change Mike Mcdonald MD Oct 23, 2018 14:08
--- NOTE | 2018-10-23 15:30 | NUR ---
NURSE NOTES: Spoke to Dr. Douglas about lexiscan stress test shown non-ischemic. Dr. Douglas states she will contact the production team advisor Dr. Arias and possible discharge.
--- NOTE | 2018-10-23 15:54 | Cardiology Progress Note ---
Assessment/Plan Status: stable Assessment/Plan Assessment/Plan Status: stable Assessment/Plan Assessment Chest pain Hypertensive urgency Elevated troponin Sinus tachycardia DM CKD HTN HLD HIV Medication non compliance lacular infarcts, CVA Plan Previous TTE with normal LV function but hypertensive heart disease and LVH with elevated filling pressures Low salt diet, cardiac rehab Ensure medication compliance Stress test given cardiac risk factors, elevated troponin, symptoms, EKG no ischemia currently/hold heparin --> NEGATIVE Nitro prn chest pain d/c losartan and aldactone - ISH/CKD elevated creatinine Aspirin given hx of lacunar CVA Continue norvasc 10 mg Continue hydralazine 25 mg TID Adjust BP medications as needed ok to discharge Subjective Cardiovascular: Reports: no symptoms Respiratory: Reports: no symptoms Gastrointestinal/Abdominal: Reports: no symptoms Genitourinary: Reports: no symptoms Subjective No acute events, stress test negative for ischemia, ready for d/c Objective Last 24 Hour Vital Signs Date Time Temp Pulse Resp B/P (MAP) Pulse Ox O2 Delivery O2 Flow Rate FiO2 10/23/18 12:35 91 10/23/18 12:00 98.5 80 18 138/83 (101) 97 10/23/18 09:02 82 143/83 10/23/18 08:50 Room Air 10/23/18 08:31 82 143/83 10/23/18 08:00 98.5 82 18 143/83 (103) 97 10/23/18 07:33 81 10/23/18 04:00 97.5 90 20 159/87 (111) 97 10/23/18 04:00 87 10/23/18 00:00 97.7 94 20 161/94 (116) 94 10/23/18 00:00 92 10/22/18 21:39 156/83 10/22/18 21:37 80 153/83 10/22/18 21:00 Room Air 10/22/18 20:00 91 10/22/18 20:00 98.2 80 20 156/83 (107) 93 General Appearance: no apparent distress, alert EENT: PERRL/EOMI, normal ENT inspection, TMs normal, pharynx normal Neck: non-tender, normal alignment, supple, normal inspection, no JVD Rhythm: NSR Cardiovascular: normal peripheral pulses, normal rate, regular rhythm, no gallop/murmur Respiratory/Chest: chest wall non-tender, lungs clear, normal breath sounds, no respiratory distress, no accessory muscle use Abdomen: normal bowel sounds, non tender, soft Extremities: normal range of motion, non-tender Neurologic: desk assistant II-XII grossly normal, no motor/sensory deficits Intake and Output 10/22/18 10/23/18 19:00 07:00 Intake Total 490 ml 120 ml Balance 490 ml 120 ml Intake Oral 490 ml 120 ml # Voids 4 2 Laboratory Tests Test 10/23/18 06:30 Sodium Level 138 MMOL/L (136-145) Potassium Level 4.6 MMOL/L (3.5-5.1) Chloride Level 104 MMOL/L (98-107) Carbon Dioxide Level 28 MMOL/L (21-32) Anion Gap 6 mmol/L (5-15) Blood Urea Nitrogen 18 mg/dL (7-18) Creatinine 1.4 MG/DL (0.55-1.30) H Estimat Glomerular Filtration Rate 51.9 mL/min (>60) Glucose Level 136 MG/DL (74-106) H Calcium Level 9.0 MG/DL (8.5-10.1) Phosphorus Level 3.0 MG/DL (2.5-4.9) Magnesium Level 2.0 MG/DL (1.8-2.4) Total Bilirubin 0.3 MG/DL (0.2-1.0) Aspartate Amino Transf (AST/SGOT) 40 U/L (15-37) H Alanine Aminotransferase (ALT/SGPT) 54 U/L (12-78) Alkaline Phosphatase 151 U/L (46-116) H Troponin I 0.008 ng/mL (0.000-0.056) C-Reactive Protein, Quantitative 1.1 mg/dL (0.00-0.90) H Pro-B-Type Natriuretic Peptide 191 pg/mL (0-125) H Total Protein 6.8 G/DL (6.4-8.2) Albumin 3.1 G/DL (3.4-5.0) L Globulin 3.7 g/dL Albumin/Globulin Ratio 0.8 (1.0-2.7) L Microbiology Date/Time Source Procedure Growth Status 10/21/18 04:10 Nasal Nares MRSA Culture - Final NO METHICILLIN RESISTANT STAPH AUREUS... Complete 10/21/18 04:10 Rectum VRE Culture - Final NO VANCOMYCIN RESISTANT ENTEROCOCCUS ... Complete 10/21/18 04:10 Rectum - Final NO CARBAPENEM-RESISTANT ENTEROBACTERI... Complete Salty Arias MD Oct 23, 2018 15:54
[2018-10-23 16:00] VITALS: BP 145/79
--- NOTE | 2018-10-23 16:26 | Diagnostic Imaging Report ---
Indications: Chest pain Technique: Single day single isotope protocol utilized. Initially, resting images obtained using IV administration 9.9 millicuries 99M technetium Myoview. Subsequently, patient underwent lexiscan stress testing. See cardiology report for details. During Lexiscan infusion, IV administration 32.1 mCi 99 M technetium Myoview. SPECT and planar images obtained. SPECT images gated to 8 phases of the cardiac cycle were also obtained, and reformatted into cine images for evaluation of ejection fraction. Comparison: none Findings: Per cardiology report, patient experienced nausea and shortness of breath. Per cardiology report, resting EKG demonstrates normal sinus rhythm with nonspecific ST-T wave abnormalities. Presence or absence of ST changes during infusion is not described on the cardiology report. Imaging demonstrates normal post stress perfusion, no fixed nor reversible perfusion defects. Normal cardiac chamber size.. Calculated post stress ejection fraction 50%. No focal wall motion abnormality Impression: Nonischemic clinical response to pharmacologic stress, per cardiology report Nonischemic electrocardiographic response to pharmacologic stress, per cardiology report No imaging findings to suggest ischemia, at level of stress achieved. Calculated post stress ejection fraction 50%
[2018-10-23] MEDS ORDERED: HYDRALAZINE HCL25 M1 ORAL (16:27)
[2018-10-23] MEDS ORDERED: METOPROLOL TAR100 M1 ORAL (16:27)
[2018-10-23] MEDS ORDERED: LIPITOR10 MG ORAL (16:27)
[2018-10-23] MEDS ORDERED: NORVASC10 MG ORAL (16:27)
--- NOTE | 2018-10-23 16:29 | Discharge Instructions ---
Discharge Instructions Discharge Instructions Follow up with: PCP Diet: cardiac 2 GM Na, low fat Resume Normal Activity?: Yes Activity: resume normal activities For Congestive Heart Failure Reminder Report to your physician any weight gain of 5 pounds or more in one week. Sonja Douglas MD Oct 23, 2018 16:29
--- NOTE | 2018-10-23 17:06 | Discharge Summary ---
Discharge Summary Hospital Course Date of Admission Oct 21, 2018 at 01:55 Date of Discharge 10/23/18 Admitting Diagnosis Acute coronary syndrome HPI Fritz Walters is a 58 year old male who was admitted on Oct 21, 2018 at 01:55 for Acute Coronary Syndrome Consultations Cardiology, Nephrology Hospital Course During hospitalization pts serial troponins and EKG with no evidence of ACS, cardiac stress test was negative. Pt also noted to have ISH on CKD, ACEI and naproxen was held, renal function at baseline prior to discharge. BP controlled with norvasc and hydralazine. On discharge, pt was ambulating with a stable gait , NAD, HDS and tolerating PO intake. Discharge Medications New Medications: Amlodipine Besylate (Norvasc) 10 Mg Tablet 10 MG ORAL DAILY for 30 Days, #30 TAB 0 Refills Atorvastatin Calcium* (Lipitor*) 10 Mg Tablet 10 MG ORAL BEDTIME for 30 Days, #30 TAB 0 Refills Hydralazine Hcl* (Hydralazine Hcl*) 25 Mg Tablet 25 MG ORAL Q8HR for 30 Days, #90 TAB 0 Refills Metoprolol Tartrate* (Metoprolol Tartrate*) 100 Mg Tablet 100 MG ORAL Q12HR for 30 Days, #60 TAB 0 Refills Continued Medications: Aspirin Ec* (Aspirin Ec*) 81 Mg Tablet. 81 MG ORAL DAILY for 30 Days, TAB Biotin (Biotin) 2,500 Mcg Capsule 5000 MCG PO, CAP (This prescription has been renewed) Cholecalciferol (Vitamin D3)* (Vitamin D*) 1,000 Unit Tablet 1000 UNITS ORAL DAILY, TAB (This prescription has been renewed) Docusate Sodium (Docusate Sodium) 250 Mg Capsule 100 MG ORAL TWICE A DAY PRN for Constipation, CAP Duloxetine Hcl* (Cymbalta*) 60 Mg Capsule.dr 90 MG ORAL DAILY, CAP Etravirine* (Intelence*) 100 Mg Tablet 400 MG ORAL DAILY, #10 TAB (This prescription has been renewed) Folic Acid (Folic Acid) 1 Mg Tablet 2 MG PO DAILY, TAB Guaifenesin/Dextromethorphan (Mucinex Dm Er 600-30 Mg Tablet) 1 Each Tab.er.12h 1 EACH PO, TAB (This prescription has been renewed) Lamotrigine (Lamotrigine) 200 Mg Tab.er.24 200 MG PO QHS, TAB Magnesium Gluconate (Magnesium Gluconate) 1 Gm Powder 500 GM PO DAILY, GM (This prescription has been renewed) Nateglinide (Starlix) 120 Mg Tablet 120 MG ORAL THREE TIMES A DAY, TAB (This prescription has been renewed) Raltegravir (Isentress) 400 Mg Tablet 400 MG ORAL BID, TAB (This prescription has been renewed) Tenofovir Disoproxil Fumarate* (Viread*) 300 Mg Tablet 300 MG ORAL DAILY, #30 TAB (This prescription has been renewed) Discontinued Medications: Atenolol (Tenormin) 25 Mg Tablet 50 MG ORAL DAILY, TAB Losartan Potassium* (Losartan Potassium*) 25 Mg Tablet 75 MG ORAL DAILY, TAB Naproxen* (Naprosyn*) 250 Mg Tablet 500 MG ORAL TWICE A DAY PRN for For Pain, #60 TAB 0 Refills Discharge Condition Upon Discharge: stable Discharge Disposition Patient was discharged to home Discharge Diagnoses: (1) HIV disease (2) Malignant hypertension (3) Psoriasis (4) ISH (acute kidney injury) (5) Diabetic nephropathy (6) Hypertensive encephalopathy (7) Hyponatremia (8) Uncontrolled type 2 diabetes mellitus with chronic kidney disease Discharge Instructions Discharge Instructions Follow up with: PCP Activity: resume normal activities Sonja Douglas MD Oct 23, 2018 17:06
--- NOTE | 2018-10-23 19:00 | NUR ---
Homeless Discharge: Patient is being discharged from medical care. Awake, alert and oriented x 4. After care instructions, including referral to parking community resources were given. Patient verbalized understanding of discharge instructions; medications sent to preferred pharmacy. No equipment or placement assigned. Patient signed discharge papers (patient has own car). All medical devices such as IV, heart monitor, and ID band were removed. Patient received medications from pharmacy, patient signed discharge papers, and belongings paper was signed. In addition, homeless papers were signed and put in chart. Patient ambulated out with all personal belongings with steady gait to private vehicle.
[2018-10-24] MEDS ORDERED: VIREAD 300 MG ORAL SCH (09:00)
--- NOTE | 2018-10-24 11:39 | Discharge Summary ---
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 Diabetic nephropathy Elevated troponin HIV disease Hyperlipidemia Medication noncompliance Anemia of chronic kidney disease Discharge Medications New Medications: Amlodipine Besylate (Norvasc) 10 Mg Tablet 10 MG ORAL DAILY for 30 Days, #30 TAB 0 Refills Atorvastatin Calcium* (Lipitor*) 10 Mg Tablet 10 MG ORAL BEDTIME for 30 Days, #30 TAB 0 Refills Hydralazine Hcl* (Hydralazine Hcl*) 25 Mg Tablet 25 MG ORAL Q8HR for 30 Days, #90 TAB 0 Refills Metoprolol Tartrate* (Metoprolol Tartrate*) 100 Mg Tablet 100 MG ORAL Q12HR for 30 Days, #60 TAB 0 Refills Continued Medications: Aspirin Ec* (Aspirin Ec*) 81 Mg Tablet.dr 81 MG ORAL DAILY for 30 Days, TAB Biotin (Biotin) 2,500 Mcg Capsule 5000 MCG PO, CAP (This prescription has been renewed) Cholecalciferol (Vitamin D3)* (Vitamin D*) 1,000 Unit Tablet 1000 UNITS ORAL DAILY, TAB (This prescription has been renewed) Docusate Sodium (Docusate Sodium) 250 Mg Capsule 100 MG ORAL TWICE A DAY PRN for Constipation, CAP Duloxetine Hcl* (Cymbalta*) 60 Mg Capsule.dr 90 MG ORAL DAILY, CAP Etravirine* (Intelence*) 100 Mg Tablet 400 MG ORAL DAILY, #10 TAB (This prescription has been renewed) Folic Acid (Folic Acid) 1 Mg Tablet 2 MG PO DAILY, TAB Guaifenesin/Dextromethorphan (Mucinex Dm Er 600-30 Mg Tablet) 1 Each Tab.er.12h 1 EACH PO, TAB (This prescription has been renewed) Lamotrigine (Lamotrigine) 200 Mg Tab.er.24 200 MG PO QHS, TAB Magnesium Gluconate (Magnesium Gluconate) 1 Gm Powder 500 GM PO DAILY, GM (This prescription has been renewed) Nateglinide (Starlix) 120 Mg Tablet 120 MG ORAL THREE TIMES A DAY, TAB (This prescription has been renewed) Raltegravir (Isentress) 400 Mg Tablet 400 MG ORAL BID, TAB (This prescription has been renewed) Tenofovir Disoproxil Fumarate* (Viread*) 300 Mg Tablet 300 MG ORAL DAILY, #30 TAB (This prescription has been renewed) Discontinued Medications: Atenolol (Tenormin) 25 Mg Tablet 50 MG ORAL DAILY, TAB Losartan Potassium* (Losartan Potassium*) 25 Mg Tablet 75 MG ORAL DAILY, TAB Naproxen* (Naprosyn*) 250 Mg Tablet 500 MG ORAL TWICE A DAY PRN for For Pain, #60 TAB 0 Refills Discharge Discharge Disposition Patient was discharged to Discharge Instructions Discharge Instructions Follow up with: PCP Activity: resume normal activities Special Instructions I have been assigned to complete a D/C Summary on this account. I was not involved in the patient management Gillian Philippe NP Oct 24, 2018 11:39
--- NOTE | 2018-10-24 14:15 | General Progress Note ---
Assessment/Plan Problem List: (1) MDD (major depressive disorder), recurrent episode, moderate ICD Codes: F33.1 - Major depressive disorder, recurrent, moderate SNOMED: 02519363, [id number] Assessment/Plan cont Cymbalta cont Topamax Subjective Neurologic/Psychiatric: Reports: anxiety, depressed, emotional problems Allergies: Coded Allergies: No Known Allergies (Unverified , 02/05/13) Objective Last 24 Hour Vital Signs Date Time Temp Pulse Resp B/P (MAP) Pulse Ox O2 Delivery O2 Flow Rate FiO2 10/23/18 16:17 92 10/23/18 16:00 98.8 85 18 145/79 (101) 95 Intake and Output 10/23/18 10/24/18 18:59 06:59 Intake Total 240 ml Balance 240 ml Intake Oral 240 ml # Voids 2 Height (Feet): 6 Weight (Pounds): 213 General Appearance: WD/WN, no apparent distress, alert Neurologic: oriented x 3, responsive, depressed affect Jarret Edgar MD Oct 24, 2018 14:15
--- NOTE | 2018-10-25 01:31 | Cardiology Report ---
APPROVED REPORT EKG Measurement Heart [id number] OH 154P [id number] Normal sinus rhythm Nonspecific T wave abnormality Prolonged QT Abnormal ECG
== END 2018-10-23 19:00 | disposition home or self-care (01) | DRG 305 ==
LOC: EMR 22:13 → 2W 10-21 01:55 → EDBEDREQ 10-21 02:45 → 2W 10-21 13:28 → 2E 10-22 08:23
DX: I16.0 Hypertensive urgency (principal); I67.82 Cerebral ischemia; B20 Human immunodeficiency virus [HIV] disease; F33.1 Major depressive disorder, recurrent, moderate; I12.9 Hypertensive chronic kidney disease with stage 1 through stage 4 chronic kidney disease, or unspecified chronic kidney disease; N18.9 Chronic kidney disease, unspecified; E11.22 Type 2 diabetes mellitus with diabetic chronic kidney disease; E11.65 Type 2 diabetes mellitus with hyperglycemia; Z59.0 Homelessness; Z86.73 Personal history of transient ischemic attack (TIA), and cerebral infarction without residual deficits; R74.8 Abnormal levels of other serum enzymes; E78.5 Hyperlipidemia, unspecified; Z91.14 Patient's other noncompliance with medication regimen; D63.1 Anemia in chronic kidney disease; Z79.4 Long term (current) use of insulin; F41.9 Anxiety disorder, unspecified
CPT/HCPCS: 36415; 71045; 78452; 80053; 80061; 80307; 81003; 82550; 82607; 82728; 82746; 82962; 82977; 83036; 83540; 83550; 83690; 83735; 83880; 84100; 84443; 84484; 84550; 85025; 85610; 85730; 86140; 87081; 93005; 93017; 99285; J1815; J2785; S5561

== ENCOUNTER 2019-02-06 13:23 | Inpatient (IN) | payer MEDICARE, MEDICAID ==
[2019-02-06] VITALS (8 sets, daily range): BP systolic 153–183; BP diastolic 73–100
[~2019-02-06] VITALS: Ht 182.9 cm; Wt 98.9 kg
[~2019-02-06 13:23] MED LIST changes: +BIOTIN2500 MCG PO; +BUTALBITAL-ASA1 EACH PO; +COLACE250 MG ORAL; +FOLIC ACID1 M1 PO; +HYDRALAZINE HCL25 M1 ORAL; +LAMOTRIGINE200 M1 PO; +LANTUS SOL100 UNIT/1 SUBQ; +LOSARTAN POTAS100 MG ORAL; +LOSARTAN POTASS25 MG ORAL; +MAGNESIUM GLUC500 GM PO; +MAGNESIUM400 M2 PO; +METOPROLOL TAR100 M1 ORAL; +MUCINEX DM ER1 EAC1 PO; +NAPROXEN250 MG ORAL; +NORVASC10 MG ORAL; +STARLIX120 MG ORAL; +TENORMIN25 MG ORAL; +VICTOZA 2-0.6 MG/0.1 SUBQ; +VITAMIN D1000 UNI1 ORAL
--- NOTE | 2019-02-06 13:56 | NUR ---
ED Nurse Note: pt presents with c/o having had a cough and congestion over past few days and cp this am. states took ntg at home. relates having a lot of phlegm productivion. a/ox4 speaks full sentences easily. placed on reptile farmer and ecg, md aware.
--- NOTE | 2019-02-06 14:04 | Emergency Room Report ---
History of Present Illness General Chief Complaint: Chest Pain Source: Patient, Medical Record Present Illness HPI Patient presents to the emergency department today complaining of chest discomfort. Patient states that he has a history of acute coronary syndrome in the past. He was told that he needed a stent. Unfortunately because of his anemia a stent was not placed. Patient states that he is HIV positive but and his CD4 count is appropriate. He also states that his viral load is undetectable. He is compliant with his medications. He states that he developed an onset of chest discomfort today. Similar to prior episodes but seems more severe today. In addition he has had subjective fevers and chills states that his temperature was high as 101.7 earlier today although he is afebrile at this time. Patient states that he also has a cough as well. Patient does appear slightly diaphoretic and tachycardic here. No other complaints are noted. Symptoms noted to be severe. No other modifying factors. No other associated signs and symptoms. No other complaints were noted. Allergies: Coded Allergies: No Known Allergies (Unverified , 02/05/13) Patient History Past Medical History: DM, HTN, CAD, CVA/TIA, migraines Past Surgical History: none Pertinent Family History: none Social History: Denies: smoking, alcohol use, drug use Reviewed Nursing Documentation: PMH: Agreed; PSxH: Agreed Nursing Documentation-PMH Past Medical History: No History, Except For Hx Cardiac Problems: Yes Hx Hypertension: Yes Hx Diabetes: Yes Hx Cancer: No Hx Gastrointestinal Problems: No Hx Neurological Problems: Yes - STROKE Hx Vertigo: Yes Hx Dizziness: Yes Hx Headaches: Yes - Tension headaches Review of Systems All Other Systems: negative except mentioned in HPI Physical Exam Vital Signs Date Time Temp Pulse Resp B/P (MAP) Pulse Ox O2 Delivery O2 Flow Rate FiO2 02/06/19 13:30 98.2 125 18 159/79 (105) 94 Room Air Sp02 EP Interpretation: reviewed, abnormal - Interpreted to be low General Appearance: alert, moderate distress Head: normocephalic, atraumatic Eyes: bilateral eye normal inspection ENT: normal ENT inspection, hearing grossly normal, normal voice, dry mucus membranes Neck: normal inspection, full range of motion, supple, no bony tend Respiratory: normal inspection, lungs clear, normal breath sounds, no respiratory distress, no retraction, no wheezing Cardiovascular #1: no edema, tachycardia Gastrointestinal: normal inspection, normal bowel sounds, non tender, soft, no guarding, no hernia Genitourinary: no CVA tenderness Musculoskeletal: normal inspection, back normal, normal range of motion Neurologic: normal inspection, alert, responsive, speech normal Psychiatric: normal inspection, judgement/insight normal, mood/affect normal Skin: normal inspection, normal color, no rash Procedures Critical Care Time Critical Care Time Patient had a critical medical condition which untreated could potentially result in life or limb threatening injury. Total critical care time excluding procedures was approximately 45 minutes. Medical Decision Making Diagnostic Impression: Primary Impression: Pneumonia Additional Impressions: Hypoxia Respiratory distress Acute coronary syndrome Elevated troponin HIV (human immunodeficiency virus infection) ER Course Patient presents emergency department today complaining of shortness of breath. Differential diagnoses include acute pneumonia, CHF, acute coronary syndrome, pneumothorax, asthma, COPD flare, just to name a few. Given the severity of the patient's presentation I felt this is a highly complex patient. This patient required extensive workup. Patient's exam is concerning given severity of shortness of breath. Patient was placed on BiPAP when he expressed shortness of breath and O2 saturation did improve while he is on BiPAP and he was more comfortable. Patient's chest x- ray shows multilobar pneumonia. Because of this patient required broad- spectrum IV antibiotics. Patient's lactic acid level was normal. Therefore patient did not require multiple fluid boluses. Instead patient was started on broad-spectrum IV antibiotics after blood cultures was obtained. Patient was given vancomycin Zosyn and Zithromax. Case was discussed in detail with admitting physician Dr. Hawley who came to the emergency department to evaluate the patient. Patient had been admitted to Dr. Harding the past. Dr. Hawley is covering Dr. Harding s group at this time. Patient will be admitted to the ERIN for further treatment. Labs Test 02/06/19 14:00 White Blood Count 4.8 K/UL (4.8-10.8) Red Blood Count 4.06 M/UL (4.70-6.10) Hemoglobin 11.0 G/DL (14.2-18.0) Hematocrit 34.3 % (42.0-52.0) Mean Corpuscular Volume 84 FL (80-99) Mean Corpuscular Hemoglobin 27.1 PG (27.0-31.0) Mean Corpuscular Hemoglobin Concent 32.1 G/DL (32.0-36.0) Red Cell Distribution Width 17.2 % (11.6-14.8) Platelet Count 154 K/UL (150-450) Mean Platelet Volume 5.0 FL (6.5-10.1) Neutrophils (%) (Auto) 75.2 % (45.0-75.0) Lymphocytes (%) (Auto) 9.5 % (20.0-45.0) Monocytes (%) (Auto) 13.9 % (1.0-10.0) Eosinophils (%) (Auto) 0.3 % (0.0-3.0) Basophils (%) (Auto) 1.1 % (0.0-2.0) Sodium Level 135 MMOL/L (136-145) Potassium Level 4.2 MMOL/L (3.5-5.1) Chloride Level 101 MMOL/L (98-107) Carbon Dioxide Level 26 MMOL/L (21-32) Anion Gap 8 mmol/L (5-15) Blood Urea Nitrogen 19 mg/dL (7-18) Creatinine 1.5 MG/DL (0.55-1.30) Estimat Glomerular Filtration Rate 47.9 mL/min (>60) Glucose Level 206 MG/DL (74-106) Lactic Acid Level 1.30 mmol/L (0.4-2.0) Calcium Level 8.6 MG/DL (8.5-10.1) Total Bilirubin 0.4 MG/DL (0.2-1.0) Aspartate Amino Transf (AST/SGOT) 43 U/L (15-37) Alanine Aminotransferase (ALT/SGPT) 69 U/L (12-78) Alkaline Phosphatase 155 U/L (46-116) Total Creatine Kinase 284 U/L (26-308) Creatine Kinase MB 2.4 NG/ML (0.0-3.6) Creatine Kinase MB Relative Index 0.8 Troponin I 0.476 ng/mL (0.000-0.056) Total Protein 7.2 G/DL (6.4-8.2) Albumin 3.2 G/DL (3.4-5.0) Globulin 4.0 g/dL Albumin/Globulin Ratio 0.8 (1.0-2.7) EKG Diagnostic Results Rate: tachycardiac Rhythm: NSR ST Segments: other - T wave ST segment depression in leads V5 V6 Rhythm Strip Diag. Results EP Interpretation: yes Rate: 120s Rhythm: NSR, no PVC's, no ectopy Chest X-Ray Diagnostic Results Chest X-Ray Diagnostic Results : Chest X-Ray Ordered: Yes # of Views/Limited/Complete: 1 View Indication: Shortness of Breath EP Interpretation: Yes Interpretation: other Impression: Other - Findings: Cardiomegaly, bilateral infiltrates. Mild pulmonary congestion. Bone structure normal. Impression acute pneumonia Electronically Signed by: Electronically signed by Reid Sanchez MD Last Vital Signs Date Time Temp Pulse Resp B/P (MAP) Pulse Ox O2 Delivery O2 Flow Rate FiO2 02/06/19 13:30 98.2 125 18 159/79 (105) 94 Room Air Status: improved Disposition: ADMITTED INPATIENT Condition: Critical Reid Sanchez MD Feb 06, 2019 14:03
--- NOTE | 2019-02-06 14:20 | NUR ---
ED Nurse Note: NOTIFIED ERMD ABOUT PT'S CP INCREASED TO 7/10 FROM 2/10. PRESSURE RADIATING TO LEFT SHOULDER. RECEIVED VERBAL ORDER FOR 4MG MORPHINE AND ASPIRIN
[2019-02-06] MEDS ORDERED: Aspirin Baby 81mg ORAL ONE (14:30)
[2019-02-06] MEDS ORDERED: Morphine Sulfate 4mg/ml Inj (IV USE ONLY) IVP ONE (14:30)
[2019-02-06 14:33] LABS: BASOPHILS % (AUTO) 1.1 % (0.0-2.0); EOSINOPHILS % (AUTO) 0.3 % (0.0-3.0); HEMATOCRIT 34.3 % (42.0-52.0); LYMPHOCYTES % (AUTO) 9.5 % (20.0-45.0); MEAN CORPUSCULAR VOLUME 84 FL (80-99); MONOCYTES % (AUTO) 13.9 % (1.0-10.0); NEUTROPHILS % (AUTO) 75.2 % (45.0-75.0); PLATELET COUNT 154 K/UL (150-450); RED BLOOD COUNT 4.06 M/UL (4.70-6.10); RED CELL DISTRIBUTION WIDTH 17.2 % (11.6-14.8); WHITE BLOOD COUNT 4.8 K/UL (4.8-10.8)
[2019-02-06 14:42] LABS: ANION GAP 8 mmol/L (5-15); BLOOD UREA NITROGEN 19 mg/dL (7-18); CALCIUM 8.6 MG/DL (8.5-10.1); CARBON DIOXIDE 26 MMOL/L (21-32); CHLORIDE 101 MMOL/L (98-107); CREATININE 1.5 MG/DL (0.55-1.30); POTASSIUM 4.2 MMOL/L (3.5-5.1); SODIUM 135 MMOL/L (136-145)
[2019-02-06 14:55] LABS: ALANINE AMINOTRANSFERASE 69 U/L (12-78); ALBUMIN 3.2 G/DL (3.4-5.0); ALBUMIN/GLOBULIN RATIO 0.8 (1.0-2.7); ALKALINE PHOSPHATASE 155 U/L (46-116); ASPARTATE AMINO TRANSFERASE 43 U/L (15-37); BILIRUBIN,TOTAL 0.4 MG/DL (0.2-1.0); CKMB 2.4 NG/ML (0.0-3.6); CREATINE KINASE 284 U/L (26-308)
[2019-02-06] MEDS ORDERED: Vancomycin 275 ML IVPB SCH (15:00)
[2019-02-06] MEDS ORDERED: Piperacillin/Tazobactam 4.5 GM in NS 110 ML IVPB ONE (15:00)
[2019-02-06] MEDS ORDERED: Azithromycin 500 MG in D5W 275 ML IVPB ONE (15:00)
--- NOTE | 2019-02-06 15:00 | NUR ---
ED Nurse Note: care ressumed of ptat [address] sexton pt to be moved to isolation negative pressure room and airborne precautions initiated. smelter charger aware and pt placed in isolation. made aware of c.o increased dyspnea and in to reeval pt. pt with decreased O2 saturation to 79%, placed on 3 l nc O2 with increased saturation to 96%. resp therapist here to place on bipap and hhn.
[2019-02-06] MEDS ORDERED: Albuterol ud Inhalation HHN ONE (15:15)
--- NOTE | 2019-02-06 15:22 | NUR ---
ED Nurse Note: pt denies night sweats or weight loss. pt does relate he has had fevers off and on at home.
--- NOTE | 2019-02-06 15:53 | NUR ---
ED Nurse Note: pt with eval by dr. laguna for dr senior. pt awake and alert x4 pt tolerating bipap well and states his breathing vss.
--- NOTE | 2019-02-06 16:14 | NUR ---
ED Nurse Note: urine and flu swabs sent as ordered.
--- NOTE | 2019-02-06 17:20 | NUR ---
ED Nurse Note: pt with swabs obtained as pt high risk/hiv status and going to icu as sdu overflow. tolerating abx iv well. belongings list done. meds noted and sent to pharmacy for inpt stay.
[2019-02-06] MEDS ORDERED: ACETAMINOPHEN500 M3 ORAL (17:27)
[2019-02-06] MEDS ORDERED: ZYRTEC10 MG ORAL (17:27)
[2019-02-06] MEDS ORDERED: Nitroglycerin Subl 0.4mg tab SL PRN ×2 (17:30→19:20)
[2019-02-06] MEDS ORDERED: Azithromycin 250 MG in NS 275 ML IV ONE (17:30)
[2019-02-06] MEDS ORDERED: JANUVIA25 MG ORAL (17:30)
[2019-02-06] MEDS ORDERED: LORazepam 1mg tab ORAL PRN ×2 (17:30→19:15)
[2019-02-06] MEDS ORDERED: FERROUS SULFAT325 MG ORAL (17:39)
[2019-02-06] MEDS ORDERED: BUTALB-ACETAMI1 EAC1 PO (17:39)
[2019-02-06] MEDS ORDERED: INTELENCE100 MG ORAL (17:39)
[2019-02-06] MEDS ORDERED: ZETIA10 MG ORAL (17:42)
[2019-02-06] MEDS ORDERED: LOSARTAN POTASS50 MG ORAL (17:42)
[2019-02-06] MEDS ORDERED: BIOTIN2500 MCG PO (17:42)
[2019-02-06] MEDS ORDERED: VITAMIN D400 INTLU ORAL (17:42)
--- NOTE | 2019-02-06 17:43 | History and Physical ---
History of Present Illness General Time patient seen: 16:30 Reason for Hospitalization: Chest Pain Present Illness HPI 58 y/o M with history of HIV on HARRT regimen and with Viral Load undetectable. He was diagnosed with HIV in the and denies any prior OI of HIV related hospitalizations. 2 days ago he went to see his PCP for lower extremity edema and reported that his MD was sick and coughing, he wore a mask and received a script for lasix therapy. Reportedly, since then he continued to have malaise, developed worsening shortness of breath and today noted a fever and harder work of breathing. He developed chest pain and came to the ER for evaluation. Per ER report, he was found to be hypoxic in the 84% range despite 2-3 lt of O2. Bipap 10/5 was started and improvement in the oxgenation to 100 % was noted. CXR with multilobar infiltrate. He was placed on droplet isolation and Zosyn, Vancomycin started. IVF 1 lt NS and Blood cultures ordered. His Lactate was 1.3 and his BP is normal. Admission is requested. The patient is a good historian and reports being compliant with his medication. Other than his PCP "sick contact" he denies any other contact or exposure. He is uptodate with vaccines, no recent travel, no prior OI, or TB. Allergies: Coded Allergies: No Known Allergies (Unverified , 02/05/13) Medication History Scheduled Acetaminophen* (Acetaminophen Extra Strength*), 500 MG ORAL Q6H, (Reported) Amlodipine Besylate (Norvasc), 10 MG ORAL DAILY Aspirin Ec* (Aspirin Ec*), 81 MG ORAL DAILY Atorvastatin Calcium* (Lipitor*), 10 MG ORAL BEDTIME Cholecalciferol (Vitamin D3)* (Vitamin D*), 1,000 UNITS ORAL DAILY, (Reported) Duloxetine Hcl* (Cymbalta*), 90 MG ORAL DAILY, (Reported) Etravirine* (Intelence*), 400 MG ORAL DAILY, (Reported) Folic Acid (Folic Acid), 1 MG PO BID, (Reported) Hydralazine Hcl* (Hydralazine Hcl*), 25 MG ORAL Q8HR Lamotrigine (Lamotrigine), 200 MG PO QHS, (Reported) Magnesium Gluconate (Magnesium Gluconate), 500 GM PO DAILY, (Reported) Metoprolol Tartrate* (Metoprolol Tartrate*), 100 MG ORAL Q12HR Nateglinide (Starlix), 120 MG ORAL THREE TIMES A DAY, (Reported) Raltegravir (Isentress), 400 MG ORAL BID, (Reported) Sitagliptin* (Januvia*), 100 MG ORAL DAILY, (Reported) Tenofovir Disoproxil Fumarate* (Viread*), 300 MG ORAL DAILY, (Reported) Scheduled PRN Cetirizine Hcl* (Zyrtec*), 10 MG ORAL DAILY PRN for Itching, (Reported) Docusate Sodium (Docusate Sodium), 100 MG ORAL TWICE A DAY PRN for Constipation, (Reported) Miscellaneous Medications Biotin (Biotin), 5,000 MCG PO, (Reported) Guaifenesin/Dextromethorphan (Mucinex Dm Er 600-30 Mg Tablet), 1 EACH PO, ( Reported) Medications Narrative Reviewed at bedside, RN entering all medications in the record now. Patient History Healthcare decision maker Resuscitation status Advanced Directive on File Family History Family History: In first degree relatives is unremarkable Review of Systems Constitutional: Reports: see HPI Respiratory: Reports: cough, shortness of breath, [place], sputum Cardiovascular: Reports: chest pain Physical Exam General Appearance: WD/WN, moderate distress Lines, tubes and drains: peripheral HEENT: EOMI, no JVD Neck: non-tender, supple Respiratory/Chest: chest wall non-tender, decreased breath sounds Cardiovascular/Chest: normal rate, regular rhythm Abdomen: normal bowel sounds, non tender Extremities: normal range of motion Skin Exam: normal pigmentation Neurologic: dynamic etching processor II-XII grossly normal Last 24 Hour Vital Signs Date Time Temp Pulse Resp B/P (MAP) Pulse Ox O2 Delivery O2 Flow Rate FiO2 02/06/19 17:20 125 38 96 Facial 40 02/06/19 15:52 40 02/06/19 15:25 122 38 95 Facial 40 02/06/19 15:21 122 38 95 Bi-Pap 02/06/19 15:19 122 38 95 Bi-Pap 02/06/19 15:00 124 24 160/81 96 Nasal Cannula 3.0 02/06/19 14:00 98.2 125 18 153/73 97 Room Air 02/06/19 14:00 125 18 Room Air 02/06/19 13:30 98.2 125 18 159/79 (105) 94 Room Air Laboratory Tests Test 02/06/19 14:00 White Blood Count 4.8 K/UL (4.8-10.8) Red Blood Count 4.06 M/UL (4.70-6.10) L Hemoglobin 11.0 G/DL (14.2-18.0) L Hematocrit 34.3 % (42.0-52.0) L Mean Corpuscular Volume 84 FL (80-99) Mean Corpuscular Hemoglobin 27.1 PG (27.0-31.0) Mean Corpuscular Hemoglobin Concent 32.1 G/DL (32.0-36.0) Red Cell Distribution Width 17.2 % (11.6-14.8) H Platelet Count 154 K/UL (150-450) Mean Platelet Volume 5.0 FL (6.5-10.1) L Neutrophils (%) (Auto) 75.2 % (45.0-75.0) H Lymphocytes (%) (Auto) 9.5 % (20.0-45.0) L Monocytes (%) (Auto) 13.9 % (1.0-10.0) H Eosinophils (%) (Auto) 0.3 % (0.0-3.0) Basophils (%) (Auto) 1.1 % (0.0-2.0) Sodium Level 135 MMOL/L (136-145) L Potassium Level 4.2 MMOL/L (3.5-5.1) Chloride Level 101 MMOL/L (98-107) Carbon Dioxide Level 26 MMOL/L (21-32) Anion Gap 8 mmol/L (5-15) Blood Urea Nitrogen 19 mg/dL (7-18) H Creatinine 1.5 MG/DL (0.55-1.30) H Estimat Glomerular Filtration Rate 47.9 mL/min (>60) Glucose Level 206 MG/DL (74-106) H Lactic Acid Level 1.30 mmol/L (0.4-2.0) Calcium Level 8.6 MG/DL (8.5-10.1) Total Bilirubin 0.4 MG/DL (0.2-1.0) Aspartate Amino Transf (AST/SGOT) 43 U/L (15-37) H Alanine Aminotransferase (ALT/SGPT) 69 U/L (12-78) Alkaline Phosphatase 155 U/L (46-116) H Total Creatine Kinase 284 U/L (26-308) Creatine Kinase MB 2.4 NG/ML (0.0-3.6) Creatine Kinase MB Relative Index 0.8 Troponin I 0.476 ng/mL (0.000-0.056) Total Protein 7.2 G/DL (6.4-8.2) Albumin 3.2 G/DL (3.4-5.0) L Globulin 4.0 g/dL Albumin/Globulin Ratio 0.8 (1.0-2.7) L Microbiology Date/Time Source Procedure Growth Status 02/06/19 16:00 Nasal Nares - Final Complete 02/06/19 16:00 Nasal Nares - Final Complete Height (Feet): 6 Weight (Pounds): 220 Medications Current Medications Medications (Trade) Dose Ordered Sig/Marquis Route PRN Reason Start Time Stop Time Status Last Admin Dose Admin Acetaminophen (Tylenol) 650 mg Q4H PRN ORAL Mild Pain (Pain Scale 1-3) 02/06/19 17:30 03/08/19 17:29 UNV Albuterol/ Ipratropium (Albuterol/ Ipratropium) 3 ml Q6HRT HHN 02/06/19 19:00 02/11/19 18:59 UNV Azithromycin 250 mg/Sodium Chloride 275 ml @ 275 mls/hr QD ONCE IV 02/06/19 17:30 02/06/19 18:29 UNV Dextrose (Dextrose 50%) 25 ml Q30M PRN IV Hypoglycemia 02/06/19 17:30 03/08/19 17:29 UNV Dextrose (Dextrose 50%) 50 ml Q30M PRN IV Hypoglycemia 02/06/19 17:30 03/08/19 17:29 UNV Docusate Sodium (Colace) 100 mg EVERY 12 HOURS ORAL 02/06/19 21:00 03/08/19 20:59 UNV Enoxaparin Sodium (Lovenox) 40 mg Q24H SUBQ 02/06/19 18:30 03/08/19 18:29 UNV Famotidine (Pepcid) 20 mg BID ORAL 02/06/19 18:00 03/08/19 17:59 UNV Lorazepam (Ativan) 1 mg Q4H PRN ORAL For Anxiety 02/06/19 17:30 02/13/19 17:29 UNV Nitroglycerin (Ntg) 0.4 mg Q5M PRN SL Prn Chest Pain 02/06/19 17:30 03/08/19 17:29 UNV Ondansetron HCl (Zofran) 4 mg Q6H PRN IVP Nausea & Vomiting 02/06/19 17:30 03/08/19 17:29 UNV Piperacillin Sod/ Tazobactam Sod 3.375 gm/Sodium Chloride 110 ml @ 220 mls/hr EVERY 8 HOURS ONCE IVPB 02/06/19 22:00 02/06/19 22:29 UNV Sodium Chloride 1,000 ml @ 100 mls/hr Q10H IVLG 02/06/19 18:18 03/08/19 18:17 UNV Vancomycin HCl (Vanco rx to dose) 1 ea DAILY PRN MISC Per rx protocol 02/06/19 17:30 03/08/19 17:29 UNV Vancomycin HCl/ Dextrose 275 ml @ 137.5 mls/ hr Q24H IVPB 02/06/19 15:00 02/11/19 14:59 Assessment/Plan Status: stable Assessment/Plan: 58 y Male admitted to the hospital due to fever, shortness of breath and chest pain. # Multilobar pneumonia in patient with HIV - Broad sp atbx started. Will continue Zosyn, Vancomycin and Azithromycin - Droplet precaution - Flu swab ordered. If postive will need antiviral therapy - Oxygen support - Consider ID consult if needed. # Hypoxemic respiratory failure - Bipap as needed, transition to O2 via NC when able - Due to pneumonia # Chest pain - EKG with bifascicular block RBB and LAFB, no ST changes. - Trend troponin x3 - Consider ECHO if troponin trends UP - NGT prn # HIV - Continue HARRT - VL is undetectable per patient report. # HTN - Resume home medication # Bordeline hyponatremia - NS 1 lt overnight # CKD 2-3 - Trend renal function DVT and GI ppx Full code Geovani Hawley MD Feb 06, 2019 17:43
[2019-02-06] MEDS ORDERED: ISOSORBIDE MONO30 M1 PO (17:48)
[2019-02-06] MEDS ORDERED: ISENTRESS400 MG ORAL (17:48)
[2019-02-06] MEDS ORDERED: VITAMIN B COMP1 EAC5 PO (17:48)
[2019-02-06] MEDS ORDERED: MUCINEX100 MG PO (17:48)
--- NOTE | 2019-02-06 17:50 | Diagnostic Imaging Report ---
Indication: Chest pain Technique: One view of the chest Comparison: 10/20/2018 Findings: There are are subcentimeter nodular opacities scattered throughout both lungs, new or increased since prior study. Interim development of patchy consolidation in the right midlung and right lower lung. The heart is enlarged. The pleural spaces are grossly clear Impression: Cardiomegaly Right mid and lower lung infiltrates versus edema, new since prior study 10/20/2018 Apparent nodular opacities scattered bilaterally throughout both lungs, new or increased since prior exam. These may reflect inflammatory lesions versus disseminated neoplasm, among other possibilities. Recommend follow-up chest radiographs, consideration for CT should lesions fail to resolve
--- NOTE | 2019-02-06 18:00 | NUR ---
ED Nurse Note: pt c/o feeling increased dypsnea. resp therapist down to eval pt and adjusting bipap as noted. pt doing better with changes.
[2019-02-06] MEDS ORDERED: Enoxaparin 40mg Inj SUBQ SCH ×2 (18:30→21:00)
[2019-02-06] MEDS ORDERED: Vancomycin 1.5gm vial IVPB ONE (18:32)
[2019-02-06] MEDS ORDERED: D5W 275 ML ONE (18:32)
[2019-02-06] MEDS ORDERED: Albuterol/Ipratropium 3ml neb HHN SCH (19:00)
--- NOTE | 2019-02-06 19:10 | NUR ---
ED Nurse Note: report given to [facility]/SDU. pt remains tolerating bipap well. sharad rn transporting pt with rt and acls protocol
--- NOTE | 2019-02-06 19:20 | NUR ---
NURSE NOTES: Report received from TESSA Morris. [facility] traffic monitor specialist applied. Belongings checked with the RN. PT is A/O x4. Denies any pain at this time. ST with HR of 120 noted. VS T 97.9, P 124, R 35, BT 179/93, R 30, SPO2 100%. Pt is on Bipap 10/5 50%. notified regarding BP, new order received and will be carried out. Abd round, soft, and non tender. IV on R FA 20G, running NS at 100cc/hr. Bed in the lowest position. Side rails up x2. Call light within reach. Will continue to monitor.
[2019-02-06] MEDS ORDERED: HydrALAZINE 25mg tab ORAL PRN (20:00)
[2019-02-06] MEDS ORDERED: Isentress 400mg tab ORAL SCH ×2 (21:00)
[2019-02-06] MEDS ORDERED: Docusate 100mg cap ORAL SCH (21:00)
[2019-02-06] MEDS: Docusate 100mg cap ORAL SCH (21:00)
--- NOTE | 2019-02-06 21:00 | NUR ---
NURSE NOTES: Called regarding sliding scale and new order received. BS of 213 noted. Will continue to monitor.
[2019-02-06] MEDS: Piperacillin/Tazobactam 3.375 GM in NS 110 ML IVPB SCH (21:44)
[2019-02-06] MEDS: NovoLOG Insulin Flexpen SUBQ SCH (21:45)
[2019-02-06] MEDS ORDERED: Piperacillin/Tazobactam 3.375 GM in NS 110 ML IVPB ONE (22:00)
--- NOTE | 2019-02-06 23:00 | NUR ---
NURSE NOTES: Received Pt is sleeping on the bed and no sign of acute distress noted. On Tele monitor with ST. On BiPAP setting with 10/5 FiO2 40%. Denied pain at this time. IV site intact and no sign of infiltration noted. Placed fall precaution. Continue to airborne precaution. Will continue to care plan.
--- NOTE | 2019-02-06 23:06 | NUR ---
HAND-OFF: Report given to TESSA Weldon. Pt appears calm and comfortable, sleeping on the bed. On Bipap without sob. No distress noted at this time.
[2019-02-07] VITALS (18 sets, daily range): BP systolic 133–157; BP diastolic 63–89
[2019-02-07] MEDS: Albuterol/Ipratropium 3ml neb HHN SCH ×4 (01:06→19:11)
[2019-02-07] MEDS: Piperacillin/Tazobactam 3.375 GM in NS 110 ML IVPB SCH ×3 (05:17→22:25)
[2019-02-07 05:48] LABS: BASOPHILS % (AUTO) 0.6 % (0.0-2.0); EOSINOPHILS % (AUTO) 0.1 % (0.0-3.0); HEMATOCRIT 31.9 % (42.0-52.0); HEMOGLOBIN 10.4 G/DL (14.2-18.0); LYMPHOCYTES % (AUTO) 15.1 % (20.0-45.0); MEAN CORPUSCULAR VOLUME 84 FL (80-99); MONOCYTES % (AUTO) 11.7 % (1.0-10.0); NEUTROPHILS % (AUTO) 72.7 % (45.0-75.0); PLATELET COUNT 159 K/UL (150-450); RED BLOOD COUNT 3.77 M/UL (4.70-6.10); RED CELL DISTRIBUTION WIDTH 17.4 % (11.6-14.8)
[2019-02-07] MEDS: NovoLOG Insulin Flexpen SUBQ SCH ×4 (06:05→20:57)
[2019-02-07 06:52] LABS: ANION GAP 9 mmol/L (5-15); BLOOD UREA NITROGEN 20 mg/dL (7-18); CALCIUM 7.9 MG/DL (8.5-10.1); CARBON DIOXIDE 24 MMOL/L (21-32); CHLORIDE 101 MMOL/L (98-107); CHOLESTEROL 99 MG/DL (< 200); CREATININE 1.5 MG/DL (0.55-1.30); HDL CHOLESTEROL 46 MG/DL (40-60); POTASSIUM 4.6 MMOL/L (3.5-5.1); SODIUM 134 MMOL/L (136-145); TRIGLYCERIDES 49 MG/DL (30-150)
--- NOTE | 2019-02-07 07:30 | NUR ---
NURSE NOTES: Received report from TESSA Rene. Observed patient in bed, awake,verbal, able to make needs known. Patient is on cont. BIPAP at this time, no acute respiratory distress noted at this time. Right forearm IV 20g intact and patent with IV fluids infusing at prescribed rate. No c/o pain or discomfort at this time. Educated about safety precautions; bed locked, alarmed, and in lowest position. side rails up x3, and call light left within reach. Instructed to use call light for assistance.
--- NOTE | 2019-02-07 07:33 | NUR ---
HAND-OFF: Report given to TESSA Pennington. Pt is resting on the bed and no sign of acute distress noted.
--- NOTE | 2019-02-07 07:56 | NUR ---
NURSE NOTES: Called and left a message for Dr Lutz regarding troponin .302. Awaiting for call back.
--- NOTE | 2019-02-07 08:31 | NUR ---
NURSE NOTES: Dr Hawley notified and made aware of troponin 10.302; new orders noted and carried out. Will continue to monitor patient.
[2019-02-07] MEDS: Docusate 100mg cap ORAL SCH ×2 (08:41→20:45)
[2019-02-07] MEDS ORDERED: TENOFOVIR DISOPROXIL FUMARATE 300 MG ORAL SCH (09:00)
[2019-02-07] MEDS ORDERED: Etravirine 100mg tab ORAL SCH ×2 (09:00)
[2019-02-07] MEDS ORDERED: DULoxetine 30mg cap ORAL SCH ×2 (09:00)
[2019-02-07] MEDS ORDERED: ETRAVIRINE 200 MG ORAL SCH (09:00)
[2019-02-07] MEDS ORDERED: Azithromycin 250 MG in NS 275 ML IV SCH (09:00)
[2019-02-07] MEDS ORDERED: sitaGLIPtin 25mg tab ORAL SCH (09:00)
[2019-02-07] MEDS ORDERED: guaiFENesin ER 600mg tab ORAL SCH ×2 (09:00)
[2019-02-07] MEDS ORDERED: Imdur 30mg tab ORAL SCH ×2 (09:00)
[2019-02-07] MEDS ORDERED: Aspirin EC 81mg tab ORAL SCH ×2 (09:00)
[2019-02-07] MEDS ORDERED: Losartan 50mg tab ORAL SCH ×2 (09:00)
[2019-02-07] MEDS ORDERED: Vitamin D 400 INTLU TAB ORAL SCH ×2 (09:00)
[2019-02-07] MEDS ORDERED: RALTEGRAVIR 400 MG ORAL SCH (09:00)
[2019-02-07 09:32] LABS: CHOLESTEROL 94 MG/DL (< 200); HDL CHOLESTEROL 40 MG/DL (40-60); TRIGLYCERIDES 58 MG/DL (30-150)
--- NOTE | 2019-02-07 09:40 | NUR ---
NURSE NOTES: pt placed in airborne isolation. in bed, awake,verbal, able to make needs known. on NC 5L. Patient is on cont. BIPAP PRN/HS. no acute respiratory distress noted at this time. Right forearm IV 20g intact and patent with NS infusing @100ml/hr.No c/o chest pain or discomfort at this time. Educated about safety precautions; bed locked, alarmed, and in lowest position. side rails up x3, and call light left within reach. Instructed to use call light for assistance. reeved report from Aditi ZARATE
--- NOTE | 2019-02-07 10:16 | NUR ---
HAND-OFF: Transferred patient to ICU-A. Report given to TESSA Shepherd. Patient in stable condition at this time. Patient denies chest pain; no acute respiratory distress noted. Dr Francois/Dr Hawley informed and made aware of current troponin levels and EKG results. Belongings list signed. construction teacher removed upon transfer.
[2019-02-07] MEDS ORDERED: LORazepam 1mg tab ORAL PRN (11:15)
--- NOTE | 2019-02-07 13:24 | Infectious Diseases Prog Note ---
Assessment/Plan Assessment/Plan Full consult to follow: A) pneumonia - ? etiology, ? CAP hiv - cd4 > 400, VL - ND rule out TB pna pmh noted allergies - nkda P) zosyn, vancomycin and azithromycin check cultures, labs and serology isolation pending AFB's monitor labs and chest x-ray thank you Subjective Allergies: Coded Allergies: No Known Allergies (Unverified , 02/05/13) Objective Vital Signs Last 24 Hour Vital Signs Date Time Temp Pulse Resp B/P (MAP) Pulse Ox O2 Delivery O2 Flow Rate FiO2 02/07/19 12:00 106 29 134/65 (88) 94 02/07/19 11:00 103 28 144/73 (96) 95 02/07/19 10:00 100 27 137/67 (90) 97 02/07/19 09:55 98.7 101 27 134/70 (91) 100 02/07/19 09:00 Bi-pap 02/07/19 08:58 98 20 99 5.0 40 02/07/19 08:41 150/76 02/07/19 08:40 106 150/76 02/07/19 08:40 150/76 02/07/19 08:00 98.4 106 22 150/76 (100) 100 02/07/19 08:00 40 02/07/19 07:32 106 02/07/19 07:18 100 24 100 Facial 50 02/07/19 04:45 92 26 100 Full Face 45 02/07/19 04:00 98.4 81 35 146/79 (101) 100 02/07/19 04:00 50 02/07/19 04:00 104 02/07/19 04:00 Bi-pap 02/07/19 03:30 100 27 100 Facial 50 02/07/19 01:08 108 31 98 Facial 50 02/07/19 01:06 108 20 98 Bi-Pap 50 02/07/19 01:06 50 02/07/19 00:00 Bi-pap 02/07/19 00:00 111 02/07/19 00:00 50 02/07/19 00:00 99.0 110 35 148/77 (100) 100 02/06/19 23:28 112 27 98 Facial 50 02/06/19 21:30 107 159/91 (113) 02/06/19 20:50 120 159/91 02/06/19 20:49 122 29 98 Facial 50 02/06/19 20:00 50 02/06/19 20:00 97.9 124 35 179/93 (121) 100 02/06/19 20:00 118 02/06/19 20:00 Bi-pap 02/06/19 19:57 Bi-pap 02/06/19 19:08 121 31 180/84 96 Bi-pap 100 02/06/19 19:06 121 31 180/84 96 Bi-pap 100 02/06/19 19:06 123 22 100 Facial 100 02/06/19 18:00 100 02/06/19 18:00 99.2 123 31 180/100 96 Bi-pap 100 02/06/19 17:20 125 38 96 Facial 40 02/06/19 17:00 126 31 183/83 96 Bi-pap 40 02/06/19 16:00 128 32 164/78 96 Bi-pap 40 02/06/19 15:52 40 02/06/19 15:25 122 38 95 Facial 40 02/06/19 15:21 122 38 95 Bi-Pap 02/06/19 15:19 122 38 95 Bi-Pap 02/06/19 15:00 124 24 160/81 96 Nasal Cannula 3.0 02/06/19 14:00 98.2 125 18 153/73 97 Room Air 02/06/19 14:00 125 18 Room Air 02/06/19 13:30 98.2 125 18 159/79 (105) 94 Room Air Height (Feet): 6 Height (Inches): 0.00 Weight (Pounds): 218 Microbiology Date/Time Source Procedure Growth Status 02/06/19 16:00 Nasal Nares - Final Complete 02/06/19 16:00 Nasal Nares - Final Complete 02/06/19 17:10 Rectal Mucosa Received Laboratory Tests Test 02/06/19 14:00 02/06/19 20:34 02/07/19 03:40 02/07/19 08:50 White Blood Count 4.8 K/UL (4.8-10.8) 5.0 K/UL (4.8-10.8) Red Blood Count 4.06 M/UL (4.70-6.10) L 3.77 M/UL (4.70-6.10) L Hemoglobin 11.0 G/DL (14.2-18.0) L 10.4 G/DL (14.2-18.0) L Hematocrit 34.3 % (42.0-52.0) L 31.9 % (42.0-52.0) L Mean Corpuscular Volume 84 FL (80-99) 84 FL (80-99) Mean Corpuscular Hemoglobin 27.1 PG (27.0-31.0) 27.5 PG (27.0-31.0) Mean Corpuscular Hemoglobin Concent 32.1 G/DL (32.0-36.0) 32.5 G/DL (32.0-36.0) Red Cell Distribution Width 17.2 % (11.6-14.8) H 17.4 % (11.6-14.8) H Platelet Count 154 K/UL (150-450) 159 K/UL (150-450) Mean Platelet Volume 5.0 FL (6.5-10.1) L 5.1 FL (6.5-10.1) L Neutrophils (%) (Auto) 75.2 % (45.0-75.0) H 72.7 % (45.0-75.0) Lymphocytes (%) (Auto) 9.5 % (20.0-45.0) L 15.1 % (20.0-45.0) L Monocytes (%) (Auto) 13.9 % (1.0-10.0) H 11.7 % (1.0-10.0) H Eosinophils (%) (Auto) 0.3 % (0.0-3.0) 0.1 % (0.0-3.0) Basophils (%) (Auto) 1.1 % (0.0-2.0) 0.6 % (0.0-2.0) Sodium Level 135 MMOL/L (136-145) L 134 MMOL/L (136-145) L Potassium Level 4.2 MMOL/L (3.5-5.1) 4.6 MMOL/L (3.5-5.1) Chloride Level 101 MMOL/L (98-107) 101 MMOL/L (98-107) Carbon Dioxide Level 26 MMOL/L (21-32) 24 MMOL/L (21-32) Anion Gap 8 mmol/L (5-15) 9 mmol/L (5-15) Blood Urea Nitrogen 19 mg/dL (7-18) H 20 mg/dL (7-18) H Creatinine 1.5 MG/DL (0.55-1.30) H 1.5 MG/DL (0.55-1.30) H Estimat Glomerular Filtration Rate 47.9 mL/min (>60) 47.9 mL/min (>60) Glucose Level 206 MG/DL (74-106) H 197 MG/DL (74-106) H Lactic Acid Level 1.30 mmol/L (0.4-2.0) Calcium Level 8.6 MG/DL (8.5-10.1) 7.9 MG/DL (8.5-10.1) L Total Bilirubin 0.4 MG/DL (0.2-1.0) Aspartate Amino Transf (AST/SGOT) 43 U/L (15-37) H Alanine Aminotransferase (ALT/SGPT) 69 U/L (12-78) Alkaline Phosphatase 155 U/L (46-116) H Total Creatine Kinase 284 U/L (26-308) Creatine Kinase MB 2.4 NG/ML (0.0-3.6) Creatine Kinase MB Relative Index 0.8 Troponin I 0.476 ng/mL (0.000-0.056) 10.302 ng/mL (0.000-0.056) 6.404 ng/mL (0.000-0.056) Total Protein 7.2 G/DL (6.4-8.2) Albumin 3.2 G/DL (3.4-5.0) L Globulin 4.0 g/dL Albumin/Globulin Ratio 0.8 (1.0-2.7) L Arterial Blood pH 7.427 (7.350-7.450) Arterial Blood Partial Pressure CO2 33.7 mmHg (35.0-45.0) L Arterial Blood Partial Pressure O2 181.2 mmHg (75.0-100.0) H Arterial Blood HCO3 21.7 mmol/L (22.0-26.0) L Arterial Blood Oxygen Saturation 98.6 % (95-100) Arterial Blood Base Excess -2.1 (-2-2) L Benny Test Positive Hemoglobin A1c 6.7 % (4.3-6.0) H Magnesium Level 1.7 MG/DL (1.8-2.4) L Triglycerides Level 49 MG/DL (30-150) 58 MG/DL (30-150) Cholesterol Level 99 MG/DL (< 200) 94 MG/DL (< 200) LDL Cholesterol 49 mg/dL (<100) 44 mg/dL (<100) HDL Cholesterol 46 MG/DL (40-60) 40 MG/DL (40-60) Cholesterol/HDL Ratio 2.2 (3.3-4.4) L 2.4 (3.3-4.4) L Current Medications Medications (Trade) Dose Ordered Sig/Marquis Route PRN Reason Start Time Stop Time Status Last Admin Dose Admin Acetaminophen (Tylenol) 650 mg Q4H PRN ORAL Mild Pain (Pain Scale 1-3) 02/07/19 11:15 03/08/19 17:29 Albuterol/ Ipratropium (Albuterol/ Ipratropium) 3 ml Q6HRT HHN 02/07/19 13:00 02/11/19 18:59 Aspirin (Ecotrin) 81 mg DAILY ORAL 02/08/19 09:00 03/09/19 08:59 Atorvastatin Calcium (Lipitor) 40 mg QHS ORAL 02/08/19 21:00 03/10/19 20:59 Azithromycin 250 mg/Sodium Chloride 275 ml @ 275 mls/hr DAILY IV 02/08/19 09:00 02/14/19 08:59 Cetirizine HCl (ZyrTEC) 10 mg DAILYPRN PRN ORAL Itching 02/07/19 11:30 03/09/19 11:29 Dextrose (Dextrose 50%) 25 ml Q30M PRN IV Hypoglycemia 02/07/19 11:15 03/08/19 17:29 Dextrose (Dextrose 50%) 50 ml Q30M PRN IV Hypoglycemia 02/07/19 11:15 03/08/19 17:29 Docusate Sodium (Colace) 100 mg EVERY 12 HOURS ORAL 02/07/19 21:00 03/08/19 20:59 Duloxetine HCl (Cymbalta) 90 mg DAILY ORAL 02/08/19 09:00 03/09/19 08:59 Enoxaparin Sodium (Lovenox) 40 mg Q24H SUBQ 02/07/19 21:00 03/08/19 20:59 EZETIMIBE (Zetia) 10 mg BEDTIME ORAL 02/07/19 21:00 03/08/19 20:59 Famotidine (Pepcid) 20 mg BID ORAL 02/07/19 18:00 03/08/19 19:59 Ferrous Sulfate (Feosol) 325 mg THREE TIMES A DAY ORAL 02/07/19 13:00 03/09/19 08:59 Folic Acid (Folate) 1 mg BID ORAL 02/07/19 18:00 03/09/19 08:59 Guaifenesin (Mucinex ER) 600 mg TWICE A DAY ORAL 02/07/19 18:00 03/09/19 08:59 Hydralazine HCl (Apresoline) 25 mg Q6H PRN ORAL SBP > 160mmHg 02/07/19 11:15 03/08/19 11:14 Insulin Aspart (NovoLOG) BEFORE MEALS AND HS SUBQ 02/07/19 12:30 03/08/19 12:29 Isosorbide Mononitrate (Imdur) 30 mg DAILY ORAL 02/08/19 09:00 03/09/19 08:59 Lorazepam (Ativan) 1 mg Q4H PRN ORAL For Anxiety 02/07/19 11:15 02/13/19 17:29 Losartan Potassium (Cozaar) 100 mg DAILY ORAL 02/08/19 09:00 03/09/19 08:59 Metoprolol Tartrate (Lopressor) 100 mg Q12HR ORAL 02/07/19 21:00 03/08/19 20:59 Nateglinide (Starlix) 120 mg THREE TIMES A DAY ORAL 02/07/19 13:00 03/09/19 08:59 Nitroglycerin (Ntg) 0.4 mg Q5M PRN SL Prn Chest Pain 02/07/19 11:00 03/08/19 17:29 Ondansetron HCl (Zofran) 4 mg Q6H PRN IVP Nausea & Vomiting 02/07/19 11:15 03/08/19 11:14 Patient Own Medication (Patient's Own Med) 1 ea BID ORAL 02/07/19 18:00 03/09/19 17:59 Patient Own Medication (Patient's Own Med) 1 ea DAILY ORAL 02/08/19 09:00 03/10/19 08:59 Patient Own Medication (Patient's Own Med) 2 ea DAILY ORAL 02/08/19 09:00 03/10/19 08:59 Piperacillin Sod/ Tazobactam Sod 3.375 gm/Sodium Chloride 110 ml @ 27.5 mls/hr EVERY 8 HOURS IVPB 02/07/19 14:00 02/13/19 21:59 Sitagliptin Phosphate (Januvia) 100 mg DAILY ORAL 02/08/19 09:00 03/09/19 08:59 Sodium Chloride 1,000 ml @ 100 mls/hr Q10H IVLG 02/07/19 11:00 03/08/19 18:17 02/07/19 11:51 Vancomycin HCl (Vanco rx to dose) 1 ea DAILY PRN MISC Per rx protocol 02/07/19 11:15 03/09/19 11:14 Vitamin D (Vitamin D) 400 intlu DAILY ORAL 02/08/19 09:00 03/09/19 08:59 Russ Tony MD Feb 07, 2019 13:24
--- NOTE | 2019-02-07 14:13 | NUR ---
NURSE NOTES: TSPOT rescheduled to be done tomorrow AM as lab recommenced.
--- NOTE | 2019-02-07 14:24 | NUR ---
Social Work This Sw met with who is currently in the ICU. Patient is homeless (was seen prior by SW during last admission here October-2018 and known to be living his car). This SW met with patient who remains alert/oriented x4, does not have an Advance Directive, while requesting full code, full treatment at this time. Patient has his mother as an emergency contact: Bruna Walters: [phone], but remains his own decision maker at this time. Patient explains he is has been living in his car and planning to return there upon his discharge (car is parked outside of this hospital). Patient also remains independent with ADLs and ambulation and does not require any DME. Patient denied any mental health concerns, nor verbalizing any suicidal/homicidal ideations. Patient also denied any past or present history of substance abuse. Patient is receiving SSI, but did not disclose the amount. This Sw offered housing options after discharge, while patient declined this at this time, stating he does not want to live where there are others around him, preferring to have his own apartment. Homeless coordinator here to follow as well. No other needs or concerns present at this time. SW to follow for support and additional resources, as needed.
--- NOTE | 2019-02-07 14:54 | NUR ---
HOMELESS COORDINATOR spoke with patient and patient is alert and oriented. Patient is currently in the ICU. Patient does have a contact number . Patient states he is chronically homeless and does not want resources for fdc. Patient states he has been homeless for 2 years . Patient states he had no income and fell behind on rent, which is the cause of his homelessness. Patient states his personal banker is his mother (Bruna Walters) , but she struggle with Dementia and would prefer not to contact her unless its an emergency. Patient states he receives $1,775 in [employer]. Patient denies any use of substance abuse. Patient states he suffers from depression and is currently taking medication for it. Patient states he would like to return back to his pervious living situation; living in his car. Patient states he has a new section 8 voucher and is currently looking for an apartment. HC provided resources for safe parking locations. was unable to make appointment for patient with PCP: [facility] [address] [place] [address] [address] [place] [address]. . Patient must call to schedule appointment himself. Tuesday thru Tuesday, 8am- 8pm. Patient continues to require medical intervention. Will continue to monitor and assist as needed.
--- NOTE | 2019-02-07 14:59 | NUR ---
HOMELESS COORDINATOR spoke with patient and patient is alert and oriented. Patient is currently in the ICU. Patient does have a contact number . Patient states he is chronically homeless and does not want resources for fpc. Patient states he has been homeless for 2 years . Patient states he had no income and fell behind on rent, which is the cause of his homelessness. Patient states his record clerk salesperson is his mother (Bruna Walters) , but she struggle with Dementia and would prefer not to contact her unless its an emergency. Patient states he receives $1,775 in [employer]. Patient denies any use of substance abuse. Patient states he suffers from depression and is currently taking medication for it. Patient states he would like to return back to his pervious living situation; living in his car. Patient states he has a new section 8 voucher and is currently looking for an apartment. HC provided resources for safe parking locations. was unable to make appointment for patient with PCP: [facility] [address] [place] [address] [address] [place] [address]. . Patient must call to schedule appointment himself. Tuesday thru Tuesday, 8am- 8pm. Patient continues to require medical intervention. Will continue to monitor and assist as needed.
--- NOTE | 2019-02-07 15:02 | Cardiac Electrophysiology PN ---
Subjective Subjective [id number] Objective Last 24 Hour Vital Signs Date Time Temp Pulse Resp B/P (MAP) Pulse Ox O2 Delivery O2 Flow Rate FiO2 02/07/19 12:00 106 29 134/65 (88) 94 02/07/19 11:00 103 28 144/73 (96) 95 02/07/19 10:00 100 27 137/67 (90) 97 02/07/19 09:55 98.7 101 27 134/70 (91) 100 02/07/19 09:00 Bi-pap 02/07/19 08:58 98 20 99 5.0 40 02/07/19 08:41 150/76 02/07/19 08:40 106 150/76 02/07/19 08:40 150/76 02/07/19 08:00 98.4 106 22 150/76 (100) 100 02/07/19 08:00 40 02/07/19 07:32 106 02/07/19 07:18 100 24 100 Facial 50 02/07/19 04:45 92 26 100 Full Face 45 02/07/19 04:00 98.4 81 35 146/79 (101) 100 02/07/19 04:00 50 02/07/19 04:00 104 02/07/19 04:00 Bi-pap 02/07/19 03:30 100 27 100 Facial 50 02/07/19 01:08 108 31 98 Facial 50 02/07/19 01:06 108 20 98 Bi-Pap 50 02/07/19 01:06 50 02/07/19 00:00 Bi-pap 02/07/19 00:00 111 02/07/19 00:00 50 02/07/19 00:00 99.0 110 35 148/77 (100) 100 02/06/19 23:28 112 27 98 Facial 50 02/06/19 21:30 107 159/91 (113) 02/06/19 20:50 120 159/91 02/06/19 20:49 122 29 98 Facial 50 02/06/19 20:00 50 02/06/19 20:00 97.9 124 35 179/93 (121) 100 02/06/19 20:00 118 02/06/19 20:00 Bi-pap 02/06/19 19:57 Bi-pap 02/06/19 19:08 121 31 180/84 96 Bi-pap 100 02/06/19 19:06 121 31 180/84 96 Bi-pap 100 02/06/19 19:06 123 22 100 Facial 100 02/06/19 18:00 100 02/06/19 18:00 99.2 123 31 180/100 96 Bi-pap 100 02/06/19 17:20 125 38 96 Facial 40 02/06/19 17:00 126 31 183/83 96 Bi-pap 40 02/06/19 16:00 128 32 164/78 96 Bi-pap 40 02/06/19 15:52 40 02/06/19 15:25 122 38 95 Facial 40 02/06/19 15:21 122 38 95 Bi-Pap 02/06/19 15:19 122 38 95 Bi-Pap Intake and Output 02/06/19 02/07/19 18:59 06:59 Intake Total 1085 ml 1141.5 ml Output Total 400 ml Balance 685 ml 1141.5 ml Intake Oral 0 ml 120 ml IV Total 1085 ml 1021.5 ml Output Urine Total 400 ml # Voids 3 # Bowel Movements 1 Laboratory Tests Test 02/06/19 20:34 02/07/19 03:40 02/07/19 08:50 Arterial Blood pH 7.427 (7.350-7.450) Arterial Blood Partial Pressure CO2 33.7 mmHg (35.0-45.0) L Arterial Blood Partial Pressure O2 181.2 mmHg (75.0-100.0) H Arterial Blood HCO3 21.7 mmol/L (22.0-26.0) L Arterial Blood Oxygen Saturation 98.6 % (95-100) Arterial Blood Base Excess -2.1 (-2-2) L Benny Test Positive White Blood Count 5.0 K/UL (4.8-10.8) Red Blood Count 3.77 M/UL (4.70-6.10) L Hemoglobin 10.4 G/DL (14.2-18.0) L Hematocrit 31.9 % (42.0-52.0) L Mean Corpuscular Volume 84 FL (80-99) Mean Corpuscular Hemoglobin 27.5 PG (27.0-31.0) Mean Corpuscular Hemoglobin Concent 32.5 G/DL (32.0-36.0) Red Cell Distribution Width 17.4 % (11.6-14.8) H Platelet Count 159 K/UL (150-450) Mean Platelet Volume 5.1 FL (6.5-10.1) L Neutrophils (%) (Auto) 72.7 % (45.0-75.0) Lymphocytes (%) (Auto) 15.1 % (20.0-45.0) L Monocytes (%) (Auto) 11.7 % (1.0-10.0) H Eosinophils (%) (Auto) 0.1 % (0.0-3.0) Basophils (%) (Auto) 0.6 % (0.0-2.0) Sodium Level 134 MMOL/L (136-145) L Potassium Level 4.6 MMOL/L (3.5-5.1) Chloride Level 101 MMOL/L (98-107) Carbon Dioxide Level 24 MMOL/L (21-32) Anion Gap 9 mmol/L (5-15) Blood Urea Nitrogen 20 mg/dL (7-18) H Creatinine 1.5 MG/DL (0.55-1.30) H Estimat Glomerular Filtration Rate 47.9 mL/min (>60) Glucose Level 197 MG/DL (74-106) H Hemoglobin A1c 6.7 % (4.3-6.0) H Calcium Level 7.9 MG/DL (8.5-10.1) L Magnesium Level 1.7 MG/DL (1.8-2.4) L Troponin I 10.302 ng/mL (0.000-0.056) 6.404 ng/mL (0.000-0.056) Triglycerides Level 49 MG/DL (30-150) 58 MG/DL (30-150) Cholesterol Level 99 MG/DL (< 200) 94 MG/DL (< 200) LDL Cholesterol 49 mg/dL (<100) 44 mg/dL (<100) HDL Cholesterol 46 MG/DL (40-60) 40 MG/DL (40-60) Cholesterol/HDL Ratio 2.2 (3.3-4.4) L 2.4 (3.3-4.4) L Microbiology Date/Time Source Procedure Growth Status 02/06/19 16:00 Nasal Nares - Final Complete 02/06/19 16:00 Nasal Nares - Final Complete 02/06/19 17:10 Rectal Mucosa Received Murray Francois MD Feb 07, 2019 15:02
--- NOTE | 2019-02-07 15:12 | NUR ---
NURSE NOTES: MD HERRERA HERE TO SEE PT. PT AWAKE LYING IN BED. VSS. WAS INFORMED OF CURRENT TROPONIN 6.404, DOWN FROM 10.302. NEXT DRAW AT 1500. WILL INFORM OF RESULT. NO NEW ORDERS AT THIS TIME.
[2019-02-07] MEDS: Nitroglycerin Subl 0.4mg tab SL PRN ×4 (16:11→20:36)
[2019-02-07] MEDS ORDERED: Isovue-300 100ml vial INJ PRN (16:15)
--- NOTE | 2019-02-07 16:17 | General Progress Note ---
Assessment/Plan Status: stable Assessment/Plan: 58 y Male admitted to the hospital due to fever, shortness of breath and chest pain. # Multilobar pneumonia in patient with HIV - Broad sp atbx started. Will continue Zosyn, Vancomycin and Azithromycin - Droplet precaution - Flu swab ordered. If positive will need antiviral therapy - Oxygen support - ID consult today appreciated. AFB, cocci, hystoplasma, legionella, ordered. - CT chest ordered today. Consider follow up pulmonary evaluation due to multi nodular infiltrates. # Hypoxemic respiratory failure - Bipap as needed, transition to O2 via NC when able - Due to pneumonia # Chest pain - EKG with bifascicular block RBB and LAFB, no ST changes. - Trend troponin x3 - ECHO completed with no WMA and preserved EF. Dr. Francois consulted. Consideration for outpatient cath vs possibly myocarditis due to underlying viral infection. No evidence of Takotsubo per TTE. - NGT prn - Pain control with morphine # HIV - Continue HARRT - VL is undetectable per patient report. T cell count > 400 # HTN - Resume home medication # Bordeline hyponatremia - Monitor - good response to NS # CKD 2-3 - Trend renal function DVT and GI ppx Full code Subjective Date patient seen: Feb 07, 2019 Time patient seen: 15:00 ROS Limited/Unobtainable: No Cardiovascular: Reports: chest pain Respiratory: Reports: cough, shortness of breath, sputum Allergies: Coded Allergies: No Known Allergies (Unverified , 02/05/13) Objective Last 24 Hour Vital Signs Date Time Temp Pulse Resp B/P (MAP) Pulse Ox O2 Delivery O2 Flow Rate FiO2 02/07/19 16:11 140/70 02/07/19 12:00 5.0 02/07/19 12:00 Nasal Cannula 5.0 02/07/19 12:00 106 29 134/65 (88) 94 02/07/19 11:00 103 28 144/73 (96) 95 02/07/19 10:00 100 27 137/67 (90) 97 02/07/19 09:55 98.7 101 27 134/70 (91) 100 02/07/19 09:00 Bi-pap 02/07/19 08:58 98 20 99 5.0 40 02/07/19 08:41 150/76 02/07/19 08:40 106 150/76 02/07/19 08:40 150/76 02/07/19 08:00 98.4 106 22 150/76 (100) 100 02/07/19 08:00 40 02/07/19 07:32 106 02/07/19 07:18 100 24 100 Facial 50 02/07/19 04:45 92 26 100 Full Face 45 02/07/19 04:00 98.4 81 35 146/79 (101) 100 02/07/19 04:00 50 02/07/19 04:00 104 02/07/19 04:00 Bi-pap 02/07/19 03:30 100 27 100 Facial 50 02/07/19 01:08 108 31 98 Facial 50 02/07/19 01:06 108 20 98 Bi-Pap 50 02/07/19 01:06 50 02/07/19 00:00 Bi-pap 02/07/19 00:00 111 02/07/19 00:00 50 02/07/19 00:00 99.0 110 35 148/77 (100) 100 02/06/19 23:28 112 27 98 Facial 50 02/06/19 21:30 107 159/91 (113) 02/06/19 20:50 120 159/91 02/06/19 20:49 122 29 98 Facial 50 02/06/19 20:00 50 02/06/19 20:00 97.9 124 35 179/93 (121) 100 02/06/19 20:00 118 02/06/19 20:00 Bi-pap 02/06/19 19:57 Bi-pap 02/06/19 19:08 121 31 180/84 96 Bi-pap 100 02/06/19 19:06 121 31 180/84 96 Bi-pap 100 02/06/19 19:06 123 22 100 Facial 100 02/06/19 18:00 100 02/06/19 18:00 99.2 123 31 180/100 96 Bi-pap 100 02/06/19 17:20 125 38 96 Facial 40 02/06/19 17:00 126 31 183/83 96 Bi-pap 40 Intake and Output 02/06/19 02/07/19 19:00 07:00 Intake Total 1085 ml 1241.5 ml Output Total 400 ml Balance 685 ml 1241.5 ml Intake Oral 0 ml 120 ml IV Total 1085 ml 1121.5 ml Output Urine Total 400 ml # Voids 3 # Bowel Movements 1 Laboratory Tests 02/06/19 20:34: Arterial Blood pH 7.427, Arterial Blood Partial Pressure CO2 33.7L, Arterial Blood Partial Pressure O2 181.2H, Arterial Blood HCO3 21.7L, Arterial Blood Oxygen Saturation 98.6, Arterial Blood Base Excess -2.1L, Benny Test Positive 02/07/19 03:40: White Blood Count 5.0, Red Blood Count 3.77L, Hemoglobin 10.4L, Hematocrit 31.9L , Mean Corpuscular Volume 84, Mean Corpuscular Hemoglobin 27.5, Mean Corpuscular Hemoglobin Concent 32.5, Red Cell Distribution Width 17.4H, Platelet Count 159, Mean Platelet Volume 5.1L, Neutrophils (%) (Auto) 72.7, Lymphocytes (%) (Auto) 15.1L, Monocytes (%) (Auto) 11.7H, Eosinophils (%) (Auto ) 0.1, Basophils (%) (Auto) 0.6, Sodium Level 134L, Potassium Level 4.6, Chloride Level 101, Carbon Dioxide Level 24, Anion Gap 9, Blood Urea Nitrogen 20H, Creatinine 1.5H, Estimat Glomerular Filtration Rate 47.9, Glucose Level 197H, Hemoglobin A1c 6.7H, Calcium Level 7.9L, Magnesium Level 1.7L, Troponin I 10.302H, Triglycerides Level 49, Cholesterol Level 99, LDL Cholesterol 49, HDL Cholesterol 46, Cholesterol/HDL Ratio 2.2L 02/07/19 08:50: Troponin I 6.404H, Triglycerides Level 58, Cholesterol Level 94, LDL Cholesterol 44, HDL Cholesterol 40, Cholesterol/HDL Ratio 2.4L 02/07/19 15:05: White Blood Count [Pending], Troponin I 4.588H, Lymphocytes [Pending], Lactate Dehydrogenase 229, Random Vancomycin Level [Pending], Percent CD3 Cells [Pending ], Absolute CD3 Count [Pending], Percent CD4 Cells [Pending], Absolute CD4 Count [Pending], T-Lymphocyte CD4/CD8 Ratio [Pending], Percent CD8 Cells [ Pending], Absolute CD8 Count [Pending], Coccidioides Antibody (Comp Fix) [ Pending], HIV-1 RNA (PCR) log10 Value [Pending], HIV-1 RNA Ultraquantitative ( PCR) [Pending], Mycoplasma pneumoniae IgG Antibody [Pending], Mycoplasma pneumoniae IgM Ab Titer [Pending] Height (Feet): 6 Height (Inches): 0.00 Weight (Pounds): 218 General Appearance: WD/WN, no apparent distress, alert EENT: PERRL/EOMI, normal ENT inspection Neck: non-tender, normal alignment Cardiovascular: normal peripheral pulses, normal rate Respiratory/Chest: chest wall non-tender, lungs clear Abdomen: normal bowel sounds, non tender Extremities: normal range of motion, non-tender Edema: trace edema Neurologic: 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
--- NOTE | 2019-02-07 16:34 | NUR ---
CASE MANAGEMENT: INITIAL REVIEW 58 YO M PRESENTED TO ED FROM HOME CC: CP PMHx: HTN. DM. CAD. CVA/TIA. STROKE. MIGRAINES. SI:SEPSIS. T 98.2 HR 125 RR 18 B/P 159/79 SATS 94% ON RA NA 135 BUN 19 CR 1.5 GLU 109 AST 43 ALP 155 TROPONIN 0.476 ABGs PCO2 33.7 PO2 181.2 HCO3 21.7 BE -2.1 IS: NS BOLUS X1 MORPHINE IV X1 ASA PO X1 ZOSYN IV X1 VANCO IV X1 AZITHROMYCIN IV X1 ALBUTEROL HHN X1 PATIENT ADMITTED TO MED/SURG 02/06/2019 @ 1539 DCP: PATIENT TO BE DISCHARGED TO HOME ONCE MEDICALLY CLEARED. PLAN OF CARE: ID CONSULT CT CHEST PULMO CONSULT Addendum: 02/07/19 at 1735 by Julia Parra interqual met
--- NOTE | 2019-02-07 17:00 | NUR ---
NURSE NOTES: per C.N report pt c/o chest pain and sob, sating 86%. 2x SL NGT tables given, no c/o pain. pt placed on BIPAP. [email or web address]. MD Hawley informed. order for CT of chest w/ contrast.
--- NOTE | 2019-02-07 17:30 | NUR ---
NURSE NOTES: CONSENT OBTAINED BY PT. IV PULLED OUT D/T PT UP OUT OF BED USING URINAL. WAS EDUCATED ON USE OF CALL LIGHT AND NOT GET OUT OF BED WITH OUT ASSISTANCE. PT STATED UNDERSTANDING.
[2019-02-07] MEDS: guaiFENesin ER 600mg tab ORAL SCH (17:46)
[2019-02-07] MEDS: RALTEGRAVIR 400 MG ORAL SCH (17:50)
[2019-02-07] MEDS ORDERED: Vancomycin 1.5gm Premix IVPB ONE (18:00)
--- NOTE | 2019-02-07 18:00 | Consultation ---
DATE OF CONSULTATION: 02/07/2019 CARDIOLOGY CONSULTATION REASON FOR CONSULTATION: Myocardial infarction. HISTORY OF PRESENT ILLNESS: The patient is a 58-year-old gentleman with history of hypertension and diabetes and hyperlipidemia as well as history of HIV, on HAART regimen with the undetectable viral load. His human immunodeficiency virus was diagnosed in . The patient has been admitted to [facility] in October of 2018 for chest pain for which he underwent a nuclear stress test that was negative for ischemia. Two days ago, he went to see his PCP with lower extremity edema. The patient also was feeling sick and was coughing. The patient received a prescription for Lasix, however, he still continues to have malaise and shortness of breath and cough and fever. He came to the emergency room for chest pain with cough and was hypoxic at 84% range. The patient was started on BiPAP with the results of some improvement. His initial EKG did not show any acute ST-T wave abnormalities. His troponin, however, initially was mildly elevated at 0.47 and subsequent one was 10.3 and the third one 5 hours later was 6.4. Cardiology consultation was obtained for further evaluation and management. PAST MEDICAL HISTORY: As mentioned above. FAMILY HISTORY: Noncontributory. SOCIAL HISTORY: He is homeless. Denies smoking or drinking alcohol. REVIEW OF SYSTEMS: Negative other than what is mentioned in the history of present illness. PHYSICAL EXAMINATION: VITAL SIGNS: Show blood pressure 124/65, pulse 106, and respirations 26. HEAD AND NECK: Shows no JVD. LUNGS: Coarse rhonchi. CARDIOVASCULAR: Shows regular S1 and S2 with no gallop or murmur. ABDOMEN: Soft. EXTREMITIES: No pitting edema. LABORATORY AND DIAGNOSTIC STUDIES: EKG showed sinus tachycardia at the rate of [address]-T wave abnormalities. No ST elevation. His echocardiogram showed ejection fraction of 60 to 65 percent and with normal wall motion. His labs show , BUN of 20, creatinine 1.5, and glucose of 197. White count is 5, hemoglobin 10.4, hematocrit of 32, and platelet count of 159,000. ASSESSMENT AND PLAN: 1. Non-ST elevation myocardial infarction with peak troponin of more than 10. EKG shows nonspecific ST-T wave abnormalities. Eventually, he would need cardiac catheterization for further evaluation of his coronaries and he also has multiple risk factors. Continue on aspirin and Lipitor and Imdur and metoprolol 100 mg b.i.d. His troponin levels are coming down and in view of the patient's hemoptysis, I would not start the patient on heparin drip at this point. 2. Hypertension. Continue metoprolol 100 mg b.i.d., losartan 100 mg daily, and Imdur 30 mg daily. The patient is also on p.r.n. hydralazine. 3. Hyperlipidemia. On Lipitor. 4. Human immunodeficiency virus. On anti-retroviral therapy with undetectable viral load. 5. Pneumonia. On azithromycin and Zosyn under the management of Dr. Tony. Thank you very much for allowing me to participate in the care of this patient. Please do not hesitate to contact me for any questions regarding my evaluation. Murray Francois M.D. DR: JACI JOB#: [id number] CC:
--- NOTE | 2019-02-07 19:36 | NUR ---
NURSE NOTES: Received report from TESSA Shepherd. Patient is alert and oriented x 4. Responsive to verbal and tactile stimuli. Able to follow direction. Patient denies any pain/discomfort at this time. He is on Bipap 10/5, FiO2 40%. ST 110s on the monitor. On Airborne precaution. Patient teaching for airborne precaution given and patient verbalized understanding. No IV line noted at this time. Will put new IV line. Will continue plan of care.
--- NOTE | 2019-02-07 20:00 | NUR ---
HAND-OFF: Report given to ONUR. ENDORSED IV REPLACEMENT.
--- NOTE | 2019-02-07 20:00 | NUR ---
NURSE NOTES:Pt has no iv access- inserted G18 angiocath to pts Right hand with good blood return.
--- NOTE | 2019-02-07 20:17 | NUR ---
NURSE NOTES:Pt complained of chest pain scale of 4 sharp pain- Ntg 0,4mg SL was given.
--- NOTE | 2019-02-07 20:22 | NUR ---
NURSE NOTES:Pt verbalized that he is still experiencing some chest paim Nitro sublingual given
[2019-02-07] MEDS: Enoxaparin 40mg Inj SUBQ SCH (20:57)
[2019-02-07] MEDS: Morphine Sulfate 2mg/ml Inj(IV/IM USE ONLY) IVP PRN (21:16)
--- NOTE | 2019-02-07 21:17 | NUR ---
NURSE NOTES:Morphine 2 mg ivp given for chest pain scale of 5.
--- NOTE | 2019-02-07 23:20 | NUR ---
NURSE NOTES: Right Forearm IV was disconnected per patient. Inserted new IV on left forearm 20G ands started IV meds as ordered. No complains of any pain/discomfort at this time. Will continue plan of care.
--- NOTE | 2019-02-07 23:21 | NUR ---
NURSE NOTES:Tylenol 650mg PO was given due to pts sorethroat(per pts request)
[2019-02-08] VITALS (25 sets, daily range): BP systolic 138–195; BP diastolic 60–109
--- NOTE | 2019-02-08 | NUR ---
NURSE NOTES:Dozing on and off and back to Bipap 10/5 with fio2 40%.
[2019-02-08] MEDS: Albuterol/Ipratropium 3ml neb HHN SCH ×4 (01:07→19:33)
--- NOTE | 2019-02-08 02:48 | NUR ---
NURSE NOTES:Pt removed his Bipap mask and desat down to 85%- instructed and explained the importance of his Bipap 02- verbalized understanding.
--- NOTE | 2019-02-08 04:30 | NUR ---
NURSE NOTES: Left forearm 20G IV was pulled out per patient. Inserted new IV on left forearm 22G. Educated patient for IV line and pt verbalized understanding.
[2019-02-08] MEDS: Piperacillin/Tazobactam 3.375 GM in NS 110 ML IVPB SCH ×3 (05:36→22:17)
--- NOTE | 2019-02-08 05:57 | NUR ---
NURSE NOTES:am care done with complete bed change, pt up in a bedside commode, tolerating we..
[2019-02-08] MEDS: NovoLOG Insulin Flexpen SUBQ SCH ×4 (06:05→20:55)
[2019-02-08 06:47] LABS: BASOPHILS % (AUTO) 0.6 % (0.0-2.0); EOSINOPHILS % (AUTO) 0.6 % (0.0-3.0); HEMATOCRIT 31.8 % (42.0-52.0); HEMOGLOBIN 10.3 G/DL (14.2-18.0); LYMPHOCYTES % (AUTO) 14.5 % (20.0-45.0); MEAN CORPUSCULAR VOLUME 85 FL (80-99); MONOCYTES % (AUTO) 10.4 % (1.0-10.0); NEUTROPHILS % (AUTO) 73.9 % (45.0-75.0); PLATELET COUNT 220 K/UL (150-450); RED BLOOD COUNT 3.73 M/UL (4.70-6.10); RED CELL DISTRIBUTION WIDTH 17.6 % (11.6-14.8); WHITE BLOOD COUNT 8.8 K/UL (4.8-10.8)
--- NOTE | 2019-02-08 07:11 | NUR ---
HAND-OFF: Report given to Jessenia ZARATE.
--- NOTE | 2019-02-08 07:11 | NUR ---
NURSE NOTES:Still on bIPAP 10/5 with fi02 of 100%
[2019-02-08 07:17] LABS: ALANINE AMINOTRANSFERASE 57 U/L (12-78); ALBUMIN 2.6 G/DL (3.4-5.0); ALBUMIN/GLOBULIN RATIO 0.6 (1.0-2.7); ALKALINE PHOSPHATASE 145 U/L (46-116); ANION GAP 10 mmol/L (5-15); ASPARTATE AMINO TRANSFERASE 48 U/L (15-37); BILIRUBIN,TOTAL 0.5 MG/DL (0.2-1.0); BLOOD UREA NITROGEN 21 mg/dL (7-18); CALCIUM 8.4 MG/DL (8.5-10.1); CARBON DIOXIDE 23 MMOL/L (21-32); CHLORIDE 101 MMOL/L (98-107); CREATININE 1.5 MG/DL (0.55-1.30); POTASSIUM 4.1 MMOL/L (3.5-5.1); SODIUM 134 MMOL/L (136-145)
--- NOTE | 2019-02-08 07:18 | NUR ---
RESPIRATORY NOTE: Received pt on Bipap 05/26, back up rate 14, 40% FiO2. Pt is awake, alert, follows commands, tachypneic RR 28-30bpm. Breathing TX Duoneb given with any adverse reactions. Noticed small redness on pt's nose bridge. RN Jessenia made aware. After Tx. changed pt to full face mask with foam tapes were applied on the fore head, cheeks and chin. Pt is resting comfortably, no distress noted. Bipap is plugged into the red outlet, alarms are set and audible, ambu bag is at bedside. Will continue to monitor pt.
--- NOTE | 2019-02-08 07:30 | NUR ---
NURSE NOTES: Report received from Tracy ZARATE. Pt alert and oriented x4, able to make needs known. Pt on potline monitor, St 110s. Bipap on 05/26, 100% oxygen saturation. Pt complained of chest pain, given nitro po prn. LFA 22 G with NS at 100 cc/hr. Safety measures in place with bed locked and in lowest position, side rails x3 up and bed alarm on. Will continue to monitor and continue plan of care.
[2019-02-08] MEDS: Nitroglycerin Subl 0.4mg tab SL PRN (07:42)
[2019-02-08] MEDS: RALTEGRAVIR 400 MG ORAL SCH ×2 (08:35→17:28)
[2019-02-08] MEDS: ETRAVIRINE 200 MG ORAL SCH (08:35)
[2019-02-08] MEDS: TENOFOVIR DISOPROXIL FUMARATE 300 MG ORAL SCH (08:35)
[2019-02-08] MEDS: DULoxetine 30mg cap ORAL SCH (08:35)
[2019-02-08] MEDS: Docusate 100mg cap ORAL SCH ×2 (08:36→20:50)
[2019-02-08] MEDS: Vitamin D 400 INTLU TAB ORAL SCH (08:38)
[2019-02-08] MEDS: guaiFENesin ER 600mg tab ORAL SCH ×2 (08:38→17:27)
[2019-02-08] MEDS: Imdur 30mg tab ORAL SCH (08:38)
[2019-02-08] MEDS: Losartan 50mg tab ORAL SCH (08:39)
[2019-02-08] MEDS: Aspirin EC 81mg tab ORAL SCH (08:41)
--- NOTE | 2019-02-08 09:04 | NUR ---
NURSE NOTES: CT called, Pt unable to get off bipap at this time, complaining of SOB. Pt also has elevated creatinine.
[2019-02-08] MEDS: HydrALAZINE 25mg tab ORAL PRN ×2 (09:26→15:32)
[2019-02-08] MEDS: Azithromycin 250 MG in NS 275 ML IV SCH (09:27)
--- NOTE | 2019-02-08 10:00 | NUR ---
RADIOLOGY DEPT., CHEST X-RAY DONE.-P.DYE
--- NOTE | 2019-02-08 10:21 | Diagnostic Imaging Report ---
Indication: Dyspnea Technique: One view of the chest Comparison: 02/06/2019 Findings: Extensive infiltrates are seen throughout the right lung, markedly increased from the prior study. There is slight increased parenchymal disease in the left lung is well, predominantly at the left lung base. Impression: Worsening infiltrates, likely pneumonia, throughout the right lung and at the left lung base, compared to prior exam of 2 days earlier
--- NOTE | 2019-02-08 11:00 | NUR ---
NURSE NOTES: Pt asking to take butabitol for headache. Called Dr Hansen office to get order, left a message. Will continue to moniotr.
--- NOTE | 2019-02-08 13:25 | NUR ---
NURSE NOTES: Pt talking on phone, pt switched to 5L NC saturating 100%. Will continue to monitor.
[2019-02-08] MEDS ORDERED: Tubing IV Secondary IV ONE (15:01)
--- NOTE | 2019-02-08 15:03 | NUR ---
NURSE NOTES: Dr Lutz here to see pt. said ok to order fioricet for headache. Will continue to monitor.
[2019-02-08] MEDS ORDERED: Milk of Magnesia 30ml Ud ORAL PRN (15:30)
--- NOTE | 2019-02-08 16:03 | Cardiac Electrophysiology PN ---
Assessment/Plan Assessment/Plan 1. Non-ST elevation myocardial infarction with peak troponin of more than 10. EKG shows nonspecific ST-T wave abnormalities. Eventually, he would need cardiac catheterization for further evaluation of his coronaries and he also has multiple risk factors. Continue on aspirin and Lipitor and Imdur and metoprolol 100 mg b.i.d. 2. Hypertension. Continue metoprolol 100 mg b.i.d., losartan 100 mg daily, and Imdur 30 mg daily. The patient is also on p.r.n. hydralazine. 3. Hyperlipidemia. On Lipitor. 4. Human immunodeficiency virus. On anti-retroviral therapy with undetectable viral load. 5. Multilobar Pneumonia. In respiratory isolation azithromycin and Zosyn under the management of Dr. Tony and Masoud Subjective Subjective In isolation on BIPAP in ICU Objective Last 24 Hour Vital Signs Date Time Temp Pulse Resp B/P (MAP) Pulse Ox O2 Delivery O2 Flow Rate FiO2 02/08/19 15:32 173/88 02/08/19 15:00 106 35 173/88 (116) 97 02/08/19 14:59 106 24 97 Full Face 40 02/08/19 14:00 105 32 173/107 (129) 98 02/08/19 13:39 105 30 99 Bi-Pap 40 02/08/19 13:28 103 32 100 Facial 40 02/08/19 13:27 103 32 100 Bi-Pap 40 02/08/19 13:00 103 32 155/109 (124) 97 02/08/19 12:00 40 02/08/19 12:00 98.9 100 30 166/69 (101) 97 02/08/19 12:00 Bi-pap 02/08/19 12:00 104 02/08/19 11:00 100 30 166/69 (101) 97 02/08/19 10:32 101 31 96 Full Face 40 02/08/19 10:00 100 31 175/89 (117) 97 02/08/19 09:26 180/86 02/08/19 09:00 113 32 180/86 (117) 96 02/08/19 08:39 110 150/63 02/08/19 08:39 150/63 02/08/19 08:38 150/63 02/08/19 08:32 110 29 93 Full Face 40 02/08/19 08:00 40 02/08/19 08:00 Bi-pap 02/08/19 08:00 98.4 113 28 170/80 (110) 95 02/08/19 08:00 116 02/08/19 07:42 150/63 02/08/19 07:19 110 30 98 Bi-Pap 40 02/08/19 07:10 107 30 100 Bi-Pap 40 02/08/19 07:08 107 30 100 Facial 40 02/08/19 07:00 112 30 138/65 (89) 95 02/08/19 06:00 99.0 98 25 150/63 (92) 98 02/08/19 05:00 97 24 145/60 (88) 98 02/08/19 04:37 100 25 96 Full Face 40 02/08/19 04:00 99.0 98 25 150/63 (92) 98 02/08/19 04:00 40 02/08/19 04:00 Bi-pap 02/08/19 04:00 113 02/08/19 03:15 100 26 100 Facial 40 02/08/19 03:00 98 24 138/63 (88) 98 02/08/19 02:00 98 24 140/80 (100) 98 02/08/19 01:18 89 24 99 Bi-Pap 40 02/08/19 01:08 97 26 100 Bi-Pap 40 02/08/19 01:08 50 02/08/19 01:07 97 28 100 Facial 40 02/08/19 01:00 97 24 144/80 (101) 98 02/08/19 00:00 Bi-pap 02/08/19 00:00 101 02/08/19 00:00 40 02/08/19 00:00 98.8 105 31 147/65 (92) 92 02/07/19 23:01 114 31 97 Facial 40 02/07/19 23:00 108 31 140/76 (97) 92 02/07/19 23:00 40 02/07/19 22:00 114 31 147/76 (99) 92 02/07/19 21:00 120 32 138/63 (88) 93 02/07/19 20:44 122 138/63 02/07/19 20:36 138/63 02/07/19 20:17 153/77 02/07/19 20:00 5.0 02/07/19 20:00 99.0 116 34 153/77 (102) 94 02/07/19 20:00 Bi-pap 02/07/19 20:00 113 02/07/19 19:42 118 33 97 02/07/19 19:11 109 28 100 Facial 40 02/07/19 19:11 50 02/07/19 19:11 108 28 100 Bi-Pap 40 02/07/19 19:00 110 31 152/75 (100) 100 02/07/19 18:00 99.0 111 32 134/65 (88) 100 02/07/19 17:39 112 26 93 5.0 40 02/07/19 17:00 40 02/07/19 17:00 110 30 150/71 (97) 96 02/07/19 16:31 112 28 95 Facial 45 02/07/19 16:18 140/91 02/07/19 16:11 140/70 02/07/19 16:00 108 26 157/89 (111) 96 02/07/19 16:00 5.0 02/07/19 16:00 110 02/07/19 16:00 Bi-pap Intake and Output 02/07/19 02/08/19 18:59 06:59 Intake Total 1392.65636 ml 1397.5 ml Output Total 560 ml 840 ml Balance 832.26215 ml 557.5 ml Intake Oral 300 ml 160 ml IV Total 1092.29529 ml 1237.5 ml Output Urine Total 560 ml 840 ml # Voids 1 # Bowel Movements 3 Laboratory Tests Test 02/07/19 18:00 02/08/19 05:29 Histoplasma Antigen Pending Urine Legionella Antigen Pending White Blood Count 8.8 K/UL (4.8-10.8) # Red Blood Count 3.73 M/UL (4.70-6.10) L Hemoglobin 10.3 G/DL (14.2-18.0) L Hematocrit 31.8 % (42.0-52.0) L Mean Corpuscular Volume 85 FL (80-99) Mean Corpuscular Hemoglobin 27.6 PG (27.0-31.0) Mean Corpuscular Hemoglobin Concent 32.5 G/DL (32.0-36.0) Red Cell Distribution Width 17.6 % (11.6-14.8) H Platelet Count 220 K/UL (150-450) Mean Platelet Volume 5.3 FL (6.5-10.1) L Neutrophils (%) (Auto) 73.9 % (45.0-75.0) Lymphocytes (%) (Auto) 14.5 % (20.0-45.0) L Monocytes (%) (Auto) 10.4 % (1.0-10.0) H Eosinophils (%) (Auto) 0.6 % (0.0-3.0) Basophils (%) (Auto) 0.6 % (0.0-2.0) Sodium Level 134 MMOL/L (136-145) L Potassium Level 4.1 MMOL/L (3.5-5.1) Chloride Level 101 MMOL/L (98-107) Carbon Dioxide Level 23 MMOL/L (21-32) Anion Gap 10 mmol/L (5-15) Blood Urea Nitrogen 21 mg/dL (7-18) H Creatinine 1.5 MG/DL (0.55-1.30) H Estimat Glomerular Filtration Rate 47.9 mL/min (>60) Glucose Level 151 MG/DL (74-106) H Calcium Level 8.4 MG/DL (8.5-10.1) L Total Bilirubin 0.5 MG/DL (0.2-1.0) Aspartate Amino Transf (AST/SGOT) 48 U/L (15-37) H Alanine Aminotransferase (ALT/SGPT) 57 U/L (12-78) Alkaline Phosphatase 145 U/L (46-116) H Troponin I 2.577 ng/mL (0.000-0.056) Total Protein 6.8 G/DL (6.4-8.2) Albumin 2.6 G/DL (3.4-5.0) L Globulin 4.2 g/dL Albumin/Globulin Ratio 0.6 (1.0-2.7) L TB Test (T-Spot) Pending TB Test Nil Control (T-Spot) Pending TB Test Panel A (T-Spot) Pending TB Test Panel B (T-Spot) Pending TB Test Positive Control (T-Spot) Pending Microbiology Date/Time Source Procedure Growth Status 02/06/19 14:15 Blood Blood Culture - Preliminary NO GROWTH AFTER 24 HOURS Resulted 02/06/19 14:00 Blood Blood Culture - Preliminary NO GROWTH AFTER 24 HOURS Resulted 02/06/19 16:00 Nasal Nares - Final Complete 02/06/19 16:00 Nasal Nares - Final Complete 02/06/19 17:10 Rectal Mucosa Received Objective HEAD AND NECK: No JVD. LUNGS: Coarse rhonchi. CARDIOVASCULAR: Regular S1 and S2 with no gallop or murmur. ABDOMEN: Soft. EXTREMITIES: No pitting edema. Murray Francois MD Feb 08, 2019 16:03
--- NOTE | 2019-02-08 16:28 | NUR ---
NURSE NOTES: Dr Francois here to see pt, no new orders. Dr Meredith here to see pt, dr wants to be on oxygen via nasal cannula vs bipap. Dr also ordered xanax for anxiety. Will continue to monitor.
[2019-02-08] MEDS ORDERED: ALPRAZolam 0.25mg tab ORAL PRN (16:30)
--- NOTE | 2019-02-08 16:31 | Pulmonolgy Critical Care Note ---
Critical Care - Asmt/Plan Problems: (1) Acute hypoxemic respiratory failure (2) Pneumonia (3) NSTEMI (non-ST elevated myocardial infarction) (4) AIDS (5) HIV disease (6) Hypertension (7) MDD (major depressive disorder), recurrent episode, moderate (8) Anemia (9) CKD (chronic kidney disease) (10) History of stroke (11) Diabetes (12) Anxiety Assessment/Plan: Acute respiratory failure B pulmonary infiltrates, ? multilobar CAP vs atypical infection vs other ? PJP AIDS (CD4 191) NSTEMI H/O prior CVA HTN HL DM CKD Anemia PLAN: Check repeat ABG Attempt to wean of BiPAP Titrate down FiO2 HHN's Continue Abx per ID (Zosyn, Vanco, Azithro) - D/W ID and we agreed that although b infiltrates in the setting of CD4 < 200 is concerning for PJP, normal LDH and PaO2 180 make PJP less likely, should be on @ least PPx, will F/ U CX's and DFA, R/O TB, continue cART F/U CT chest Monitor volumes and renal function F/U cards recs: ASA, statin, ARB, per cards hold off on IVUH, continue LMWH Px, will need further ischemia eval/cath once stabilized DVT Px: LMWH D/W RN for BT center, will fax over pt's med list and will reconcile meds D/W Alessandro Galvez and Simin Disposition: keep in ICU Time Spent (Minutes): 60 Notes 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: 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, 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, ID Critical Care - Objective Last 24 Hour Vital Signs Date Time Temp Pulse Resp B/P (MAP) Pulse Ox O2 Delivery O2 Flow Rate FiO2 02/08/19 15:32 173/88 02/08/19 15:00 106 35 173/88 (116) 97 02/08/19 14:59 106 24 97 Full Face 40 02/08/19 14:00 105 32 173/107 (129) 98 02/08/19 13:39 105 30 99 Bi-Pap 40 02/08/19 13:28 103 32 100 Facial 40 02/08/19 13:27 103 32 100 Bi-Pap 40 02/08/19 13:00 103 32 155/109 (124) 97 02/08/19 12:00 40 02/08/19 12:00 98.9 100 30 166/69 (101) 97 02/08/19 12:00 Bi-pap 02/08/19 12:00 104 02/08/19 11:00 100 30 166/69 (101) 97 02/08/19 10:32 101 31 96 Full Face 40 02/08/19 10:00 100 31 175/89 (117) 97 02/08/19 09:26 180/86 02/08/19 09:00 113 32 180/86 (117) 96 02/08/19 08:39 110 150/63 02/08/19 08:39 150/63 02/08/19 08:38 150/63 02/08/19 08:32 110 29 93 Full Face 40 02/08/19 08:00 40 02/08/19 08:00 Bi-pap 02/08/19 08:00 98.4 113 28 170/80 (110) 95 02/08/19 08:00 116 02/08/19 07:42 150/63 02/08/19 07:19 110 30 98 Bi-Pap 40 02/08/19 07:10 107 30 100 Bi-Pap 40 02/08/19 07:08 107 30 100 Facial 40 02/08/19 07:00 112 30 138/65 (89) 95 02/08/19 06:00 99.0 98 25 150/63 (92) 98 02/08/19 05:00 97 24 145/60 (88) 98 02/08/19 04:37 100 25 96 Full Face 40 02/08/19 04:00 99.0 98 25 150/63 (92) 98 02/08/19 04:00 40 02/08/19 04:00 Bi-pap 02/08/19 04:00 113 02/08/19 03:15 100 26 100 Facial 40 02/08/19 03:00 98 24 138/63 (88) 98 02/08/19 02:00 98 24 140/80 (100) 98 02/08/19 01:18 89 24 99 Bi-Pap 40 02/08/19 01:08 97 26 100 Bi-Pap 40 02/08/19 01:08 50 02/08/19 01:07 97 28 100 Facial 40 02/08/19 01:00 97 24 144/80 (101) 98 02/08/19 00:00 Bi-pap 02/08/19 00:00 101 02/08/19 00:00 40 02/08/19 00:00 98.8 105 31 147/65 (92) 92 02/07/19 23:01 114 31 97 Facial 40 02/07/19 23:00 108 31 140/76 (97) 92 02/07/19 23:00 40 02/07/19 22:00 114 31 147/76 (99) 92 02/07/19 21:00 120 32 138/63 (88) 93 02/07/19 20:44 122 138/63 02/07/19 20:36 138/63 02/07/19 20:17 153/77 02/07/19 20:00 5.0 02/07/19 20:00 99.0 116 34 153/77 (102) 94 02/07/19 20:00 Bi-pap 02/07/19 20:00 113 02/07/19 19:42 118 33 97 02/07/19 19:11 109 28 100 Facial 40 02/07/19 19:11 50 02/07/19 19:11 108 28 100 Bi-Pap 40 02/07/19 19:00 110 31 152/75 (100) 100 02/07/19 18:00 99.0 111 32 134/65 (88) 100 02/07/19 17:39 112 26 93 5.0 40 02/07/19 17:00 40 02/07/19 17:00 110 30 150/71 (97) 96 02/07/19 16:31 112 28 95 Facial 45 02/07/19 16:18 140/91 Status: awake, other - anxious Condition: critical HEENT: atraumatic, normocephalic Lungs: rhonchi Heart: HR/BP stable Abdomen: soft, non-tender, active bowel sounds Extremities: no C/C/E Micro: Microbiology Date/Time Source Procedure Growth Status 02/06/19 14:15 Blood Blood Culture - Preliminary NO GROWTH AFTER 24 HOURS Resulted 02/06/19 14:00 Blood Blood Culture - Preliminary NO GROWTH AFTER 24 HOURS Resulted 02/06/19 16:00 Nasal Nares - Final Complete 02/06/19 16:00 Nasal Nares - Final Complete 02/06/19 17:10 Rectal Mucosa Received Accucheck: 234 Blood Sugars: BS not controlled Critical Care - Subjective ROS Limited/Unobtainable: Yes ICU Day: 3 Intubation Day: BiPAP 3 Interval Events: 58 M h/o HIV (previously CD4 > 400, VL UD --> now CD4 191) on ART p/w cough and SOB x a few days In the ED he was hypoxemic and placed on BiPAP, CXR with multilobar infiltrates He has been started on BSAbx and is being ruled out for TB Hospital course has been CB NSTEMI, although his previous stress test 11/07 was non-ischemic Condition: critical IV Access: peripheral EKG Rhythm: Sinus Rhythm FI02: 40 Sputum Amount: None Secretions: none I&O: Intake and Output 02/07/19 02/08/19 18:59 06:59 Intake Total 1392.25358 ml 1397.5 ml Output Total 560 ml 840 ml Balance 832.77206 ml 557.5 ml Intake Oral 300 ml 160 ml IV Total 1092.37067 ml 1237.5 ml Output Urine Total 560 ml 840 ml # Voids 1 # Bowel Movements 3 Subjective: + SOB + cough NO no hemoptysis some wheezing no FC no CP + anxious CXR: B infiltrates Labs: Laboratory Tests Test 02/07/19 18:00 02/08/19 05:29 Histoplasma Antigen Pending Urine Legionella Antigen Pending White Blood Count 8.8 K/UL (4.8-10.8) # Red Blood Count 3.73 M/UL (4.70-6.10) L Hemoglobin 10.3 G/DL (14.2-18.0) L Hematocrit 31.8 % (42.0-52.0) L Mean Corpuscular Volume 85 FL (80-99) Mean Corpuscular Hemoglobin 27.6 PG (27.0-31.0) Mean Corpuscular Hemoglobin Concent 32.5 G/DL (32.0-36.0) Red Cell Distribution Width 17.6 % (11.6-14.8) H Platelet Count 220 K/UL (150-450) Mean Platelet Volume 5.3 FL (6.5-10.1) L Neutrophils (%) (Auto) 73.9 % (45.0-75.0) Lymphocytes (%) (Auto) 14.5 % (20.0-45.0) L Monocytes (%) (Auto) 10.4 % (1.0-10.0) H Eosinophils (%) (Auto) 0.6 % (0.0-3.0) Basophils (%) (Auto) 0.6 % (0.0-2.0) Sodium Level 134 MMOL/L (136-145) L Potassium Level 4.1 MMOL/L (3.5-5.1) Chloride Level 101 MMOL/L (98-107) Carbon Dioxide Level 23 MMOL/L (21-32) Anion Gap 10 mmol/L (5-15) Blood Urea Nitrogen 21 mg/dL (7-18) H Creatinine 1.5 MG/DL (0.55-1.30) H Estimat Glomerular Filtration Rate 47.9 mL/min (>60) Glucose Level 151 MG/DL (74-106) H Calcium Level 8.4 MG/DL (8.5-10.1) L Total Bilirubin 0.5 MG/DL (0.2-1.0) Aspartate Amino Transf (AST/SGOT) 48 U/L (15-37) H Alanine Aminotransferase (ALT/SGPT) 57 U/L (12-78) Alkaline Phosphatase 145 U/L (46-116) H Troponin I 2.577 ng/mL (0.000-0.056) Total Protein 6.8 G/DL (6.4-8.2) Albumin 2.6 G/DL (3.4-5.0) L Globulin 4.2 g/dL Albumin/Globulin Ratio 0.6 (1.0-2.7) L TB Test (T-Spot) Pending TB Test Nil Control (T-Spot) Pending TB Test Panel A (T-Spot) Pending TB Test Panel B (T-Spot) Pending TB Test Positive Control (T-Spot) Pending Brett Meredith MD Feb 08, 2019 16:31
--- NOTE | 2019-02-08 17:12 | General Progress Note ---
Assessment/Plan Status: stable Assessment/Plan: 58 y Male admitted to the hospital due to fever, shortness of breath and chest pain. # Multilobar pneumonia in patient with HIV - Broad sp atbx started. Will continue Zosyn, Vancomycin and Azithromycin - Droplet precaution - Flu swab ordered. If positive will need antiviral therapy - Oxygen support - ID consult today appreciated. AFB, cocci, hystoplasma, legionella, ordered. - CT chest ordered today. Consider follow up pulmonary evaluation due to multi nodular infiltrates. # Acute Hypoxemic respiratory failure - Bipap as needed, transition to O2 via NC when able - Due to pneumonia # NSTEMI - EKG with bifascicular block RBB and LAFB, no ST changes. - Trend troponin x3 - ECHO completed with no WMA and preserved EF. Dr. Francois consulted. Consideration for outpatient cath vs possibly myocarditis due to underlying viral infection. No evidence of Takotsubo per TTE. - NGT prn - Pain control with morphine # HIV - Continue HARRT - VL is undetectable per patient report. 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 Objective Last 24 Hour Vital Signs Date Time Temp Pulse Resp B/P (MAP) Pulse Ox O2 Delivery O2 Flow Rate FiO2 02/08/19 16:00 114 02/08/19 16:00 Nasal Cannula 5.0 02/08/19 16:00 98.4 112 29 182/92 (122) 92 02/08/19 16:00 40 02/08/19 15:32 173/88 02/08/19 15:00 106 35 173/88 (116) 97 02/08/19 14:59 106 24 97 Full Face 40 02/08/19 14:00 105 32 173/107 (129) 98 02/08/19 13:39 105 30 99 Bi-Pap 40 02/08/19 13:28 103 32 100 Facial 40 02/08/19 13:27 103 32 100 Bi-Pap 40 02/08/19 13:00 103 32 155/109 (124) 97 02/08/19 12:00 40 02/08/19 12:00 98.9 100 30 166/69 (101) 97 02/08/19 12:00 Bi-pap 02/08/19 12:00 104 02/08/19 11:00 100 30 166/69 (101) 97 02/08/19 10:32 101 31 96 Full Face 40 02/08/19 10:00 100 31 175/89 (117) 97 02/08/19 09:26 180/86 02/08/19 09:00 113 32 180/86 (117) 96 02/08/19 08:39 110 150/63 02/08/19 08:39 150/63 02/08/19 08:38 150/63 02/08/19 08:32 110 29 93 Full Face 40 02/08/19 08:00 40 02/08/19 08:00 Bi-pap 02/08/19 08:00 98.4 113 28 170/80 (110) 95 02/08/19 08:00 116 02/08/19 07:42 150/63 02/08/19 07:19 110 30 98 Bi-Pap 40 02/08/19 07:10 107 30 100 Bi-Pap 40 02/08/19 07:08 107 30 100 Facial 40 02/08/19 07:00 112 30 138/65 (89) 95 02/08/19 06:00 99.0 98 25 150/63 (92) 98 02/08/19 05:00 97 24 145/60 (88) 98 02/08/19 04:37 100 25 96 Full Face 40 02/08/19 04:00 99.0 98 25 150/63 (92) 98 02/08/19 04:00 40 02/08/19 04:00 Bi-pap 02/08/19 04:00 113 02/08/19 03:15 100 26 100 Facial 40 02/08/19 03:00 98 24 138/63 (88) 98 02/08/19 02:00 98 24 140/80 (100) 98 6/20/19 01:18 89 24 99 Bi-Pap 40 02/08/19 01:08 97 26 100 Bi-Pap 40 02/08/19 01:08 50 02/08/19 01:07 97 28 100 Facial 40 02/08/19 01:00 97 24 144/80 (101) 98 02/08/19 00:00 Bi-pap 02/08/19 00:00 101 02/08/19 00:00 40 02/08/19 00:00 98.8 105 31 147/65 (92) 92 02/07/19 23:01 114 31 97 Facial 40 02/07/19 23:00 108 31 140/76 (97) 92 02/07/19 23:00 40 02/07/19 22:00 114 31 147/76 (99) 92 02/07/19 21:00 120 32 138/63 (88) 93 02/07/19 20:44 122 138/63 02/07/19 20:36 138/63 02/07/19 20:17 153/77 02/07/19 20:00 5.0 02/07/19 20:00 99.0 116 34 153/77 (102) 94 02/07/19 20:00 Bi-pap 02/07/19 20:00 113 02/07/19 19:42 118 33 97 02/07/19 19:11 109 28 100 Facial 40 02/07/19 19:11 50 02/07/19 19:11 108 28 100 Bi-Pap 40 02/07/19 19:00 110 31 152/75 (100) 100 02/07/19 18:00 99.0 111 32 134/65 (88) 100 02/07/19 17:39 112 26 93 5.0 40 Intake and Output 02/07/19 02/08/19 18:59 06:59 Intake Total 1392.85644 ml 1397.5 ml Output Total 560 ml 840 ml Balance 832.79215 ml 557.5 ml Intake Oral 300 ml 160 ml IV Total 1092.78931 ml 1237.5 ml Output Urine Total 560 ml 840 ml # Voids 1 # Bowel Movements 3 Laboratory Tests 02/07/19 18:00: Histoplasma Antigen [Pending], Urine Legionella Antigen [Pending] 02/08/19 05:29: White Blood Count 8.8#, Red Blood Count 3.73L, Hemoglobin 10.3L, Hematocrit 31.8L, Mean Corpuscular Volume 85, Mean Corpuscular Hemoglobin 27.6, Mean Corpuscular Hemoglobin Concent 32.5, Red Cell Distribution Width 17.6H, Platelet Count 220, Mean Platelet Volume 5.3L, Neutrophils (%) (Auto) 73.9, Lymphocytes (%) (Auto) 14.5L, Monocytes (%) (Auto) 10.4H, Eosinophils (%) (Auto ) 0.6, Basophils (%) (Auto) 0.6, Sodium Level 134L, Potassium Level 4.1, Chloride Level 101, Carbon Dioxide Level 23, Anion Gap 10, Blood Urea Nitrogen 21H, Creatinine 1.5H, Estimat Glomerular Filtration Rate 47.9, Glucose Level 151H, Calcium Level 8.4L, Total Bilirubin 0.5, Aspartate Amino Transf (AST/SGOT ) 48H, Alanine Aminotransferase (ALT/SGPT) 57, Alkaline Phosphatase 145H, Troponin I 2.577H, Total Protein 6.8, Albumin 2.6L, Globulin 4.2, Albumin/ Globulin Ratio 0.6L, TB Test (T-Spot) [Pending], TB Test Nil Control (T-Spot) [ Pending], TB Test Panel A (T-Spot) [Pending], TB Test Panel B (T-Spot) [Pending] , TB Test Positive Control (T-Spot) [Pending] Height (Feet): 6 Height (Inches): 0.00 Weight (Pounds): 220 Objective General Appearance: WD/WN, no apparent distress, alert on Bipap EENT: PERRL/EOMI, normal ENT inspection Neck: non-tender, normal alignment Cardiovascular: normal peripheral pulses, normal rate Respiratory/Chest: chest wall non-tender, lungs clear Abdomen: normal bowel sounds, non tender Extremities: normal range of motion, non-tender Edema: trace edema Neurologic: roughener II-XII grossly normal Mj Lutz MD Feb 08, 2019 17:12
--- NOTE | 2019-02-08 17:23 | Infectious Diseases Prog Note ---
Assessment/Plan Assessment/Plan Full consult A) pneumonia - ? etiology, ? 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 fungal pmh noted allergies - nkda P) zosyn, vancomycin and azithromycin for now check cultures, labs and serology isolation pending AFB's monitor labs and chest x-ray d/w Dr. Meredith d/w RN and patient will f/u Subjective Constitutional: Reports: other - + bipap; Denies: fever HEENT: Reports: congestion Respiratory: Reports: shortness of breath Cardiovascular: Denies: chest pain Gastrointestinal/Abdominal: Denies: nausea, vomiting, diarrhea Genitourinary: Denies: dysuria Neurologic: Denies: headache Psychiatric: Denies: depression Allergies: Coded Allergies: No Known Allergies (Unverified , 02/05/13) Objective Vital Signs Last 24 Hour Vital Signs Date Time Temp Pulse Resp B/P (MAP) Pulse Ox O2 Delivery O2 Flow Rate FiO2 02/08/19 16:00 114 02/08/19 16:00 Nasal Cannula 5.0 02/08/19 16:00 98.4 112 29 182/92 (122) 92 02/08/19 16:00 40 02/08/19 15:32 173/88 02/08/19 15:00 106 35 173/88 (116) 97 02/08/19 14:59 106 24 97 Full Face 40 02/08/19 14:00 105 32 173/107 (129) 98 02/08/19 13:39 105 30 99 Bi-Pap 40 02/08/19 13:28 103 32 100 Facial 40 02/08/19 13:27 103 32 100 Bi-Pap 40 02/08/19 13:00 103 32 155/109 (124) 97 02/08/19 12:00 40 02/08/19 12:00 98.9 100 30 166/69 (101) 97 02/08/19 12:00 Bi-pap 02/08/19 12:00 104 02/08/19 11:00 100 30 166/69 (101) 97 02/08/19 10:32 101 31 96 Full Face 40 02/08/19 10:00 100 31 175/89 (117) 97 02/08/19 09:26 180/86 02/08/19 09:00 113 32 180/86 (117) 96 02/08/19 08:39 110 150/63 02/08/19 08:39 150/63 02/08/19 08:38 150/63 02/08/19 08:32 110 29 93 Full Face 40 02/08/19 08:00 40 02/08/19 08:00 Bi-pap 02/08/19 08:00 98.4 113 28 170/80 (110) 95 02/08/19 08:00 116 02/08/19 07:42 150/63 02/08/19 07:19 110 30 98 Bi-Pap 40 02/08/19 07:10 107 30 100 Bi-Pap 40 02/08/19 07:08 107 30 100 Facial 40 02/08/19 07:00 112 30 138/65 (89) 95 02/08/19 06:00 99.0 98 25 150/63 (92) 98 02/08/19 05:00 97 24 145/60 (88) 98 02/08/19 04:37 100 25 96 Full Face 40 02/08/19 04:00 99.0 98 25 150/63 (92) 98 02/08/19 04:00 40 02/08/19 04:00 Bi-pap 02/08/19 04:00 113 02/08/19 03:15 100 26 100 Facial 40 02/08/19 03:00 98 24 138/63 (88) 98 02/08/19 02:00 98 24 140/80 (100) 98 02/08/19 01:18 89 24 99 Bi-Pap 40 02/08/19 01:08 97 26 100 Bi-Pap 40 02/08/19 01:08 50 02/08/19 01:07 97 28 100 Facial 40 02/08/19 01:00 97 24 144/80 (101) 98 02/08/19 00:00 Bi-pap 02/08/19 00:00 101 02/08/19 00:00 40 02/08/19 00:00 98.8 105 31 147/65 (92) 92 02/07/19 23:01 114 31 97 Facial 40 02/07/19 23:00 108 31 140/76 (97) 92 02/07/19 23:00 40 02/07/19 22:00 114 31 147/76 (99) 92 02/07/19 21:00 120 32 138/63 (88) 93 02/07/19 20:44 122 138/63 02/07/19 20:36 138/63 02/07/19 20:17 153/77 02/07/19 20:00 5.0 02/07/19 20:00 99.0 116 34 153/77 (102) 94 02/07/19 20:00 Bi-pap 02/07/19 20:00 113 02/07/19 19:42 118 33 97 02/07/19 19:11 109 28 100 Facial 40 02/07/19 19:11 50 02/07/19 19:11 108 28 100 Bi-Pap 40 02/07/19 19:00 110 31 152/75 (100) 100 02/07/19 18:00 99.0 111 32 134/65 (88) 100 02/07/19 17:39 112 26 93 5.0 40 Height (Feet): 6 Height (Inches): 0.00 Weight (Pounds): 220 General Appearance: other - + sob, + bipap HEENT: normocephalic, atraumatic, anicteric, mucous membranes moist Respiratory/Chest: crackles/rales, rhonchi - bilaterally Cardiovascular: normal rate, regular rhythm, no gallop/murmur Abdomen: normal bowel sounds, soft, non tender, no organomegaly Microbiology Date/Time Source Procedure Growth Status 02/06/19 14:15 Blood Blood Culture - Preliminary NO GROWTH AFTER 24 HOURS Resulted 02/06/19 14:00 Blood Blood Culture - Preliminary NO GROWTH AFTER 24 HOURS Resulted 02/06/19 16:00 Nasal Nares - Final Complete 02/06/19 16:00 Nasal Nares - Final Complete 02/06/19 17:10 Rectal Mucosa Received Laboratory Tests Test 02/07/19 18:00 02/08/19 05:29 Histoplasma Antigen Pending Urine Legionella Antigen Pending White Blood Count 8.8 K/UL (4.8-10.8) # Red Blood Count 3.73 M/UL (4.70-6.10) L Hemoglobin 10.3 G/DL (14.2-18.0) L Hematocrit 31.8 % (42.0-52.0) L Mean Corpuscular Volume 85 FL (80-99) Mean Corpuscular Hemoglobin 27.6 PG (27.0-31.0) Mean Corpuscular Hemoglobin Concent 32.5 G/DL (32.0-36.0) Red Cell Distribution Width 17.6 % (11.6-14.8) H Platelet Count 220 K/UL (150-450) Mean Platelet Volume 5.3 FL (6.5-10.1) L Neutrophils (%) (Auto) 73.9 % (45.0-75.0) Lymphocytes (%) (Auto) 14.5 % (20.0-45.0) L Monocytes (%) (Auto) 10.4 % (1.0-10.0) H Eosinophils (%) (Auto) 0.6 % (0.0-3.0) Basophils (%) (Auto) 0.6 % (0.0-2.0) Sodium Level 134 MMOL/L (136-145) L Potassium Level 4.1 MMOL/L (3.5-5.1) Chloride Level 101 MMOL/L (98-107) Carbon Dioxide Level 23 MMOL/L (21-32) Anion Gap 10 mmol/L (5-15) Blood Urea Nitrogen 21 mg/dL (7-18) H Creatinine 1.5 MG/DL (0.55-1.30) H Estimat Glomerular Filtration Rate 47.9 mL/min (>60) Glucose Level 151 MG/DL (74-106) H Calcium Level 8.4 MG/DL (8.5-10.1) L Total Bilirubin 0.5 MG/DL (0.2-1.0) Aspartate Amino Transf (AST/SGOT) 48 U/L (15-37) H Alanine Aminotransferase (ALT/SGPT) 57 U/L (12-78) Alkaline Phosphatase 145 U/L (46-116) H Troponin I 2.577 ng/mL (0.000-0.056) Total Protein 6.8 G/DL (6.4-8.2) Albumin 2.6 G/DL (3.4-5.0) L Globulin 4.2 g/dL Albumin/Globulin Ratio 0.6 (1.0-2.7) L TB Test (T-Spot) Pending TB Test Nil Control (T-Spot) Pending TB Test Panel A (T-Spot) Pending TB Test Panel B (T-Spot) Pending TB Test Positive Control (T-Spot) Pending Current Medications Medications (Trade) Dose Ordered Sig/Marquis Route PRN Reason Start Time Stop Time Status Last Admin Dose Admin Acetaminophen (Tylenol) 650 mg Q4H PRN ORAL Mild Pain (Pain Scale 1-3) 02/07/19 11:15 03/08/19 17:29 02/07/19 23:01 Acetaminophen/ Butalbital/ Caffeine (Fioricet) 1 tab Q8H PRN ORAL For Headache 02/08/19 17:15 03/10/19 17:14 Albuterol/ Ipratropium (Albuterol/ Ipratropium) 3 ml Q6HRT HHN 02/07/19 13:00 02/11/19 18:59 02/08/19 13:27 Alprazolam (Xanax) 0.25 mg Q6H PRN ORAL For Anxiety 02/08/19 16:30 02/15/19 16:29 02/08/19 16:43 Aspirin (Ecotrin) 81 mg DAILY ORAL 02/08/19 09:00 03/09/19 08:59 02/08/19 08:41 Atorvastatin Calcium (Lipitor) 40 mg QHS ORAL 02/08/19 21:00 03/10/19 20:59 Azithromycin 250 mg/Sodium Chloride 275 ml @ 275 mls/hr DAILY IV 02/08/19 09:00 02/14/19 08:59 02/08/19 09:27 Bisacodyl (Dulcolax) 5 mg DAILYPRN PRN ORAL Constipation 02/08/19 17:15 03/10/19 17:14 Cetirizine HCl (ZyrTEC) 10 mg DAILYPRN PRN ORAL Itching 02/07/19 11:30 03/09/19 11:29 Dextrose (Dextrose 50%) 25 ml Q30M PRN IV Hypoglycemia 02/07/19 11:15 03/08/19 17:29 Dextrose (Dextrose 50%) 50 ml Q30M PRN IV Hypoglycemia 02/07/19 11:15 03/08/19 17:29 Docusate Sodium (Colace) 200 mg EVERY 12 HOURS ORAL 02/08/19 21:00 03/08/19 20:59 Duloxetine HCl (Cymbalta) 90 mg DAILY ORAL 02/08/19 09:00 03/09/19 08:59 02/08/19 08:35 Enoxaparin Sodium (Lovenox) 40 mg Q24H SUBQ 02/07/19 21:00 03/08/19 20:59 02/07/19 20:57 EZETIMIBE (Zetia) 10 mg BEDTIME ORAL 02/07/19 21:00 03/08/19 20:59 02/07/19 20:44 Famotidine (Pepcid) 20 mg BID ORAL 02/07/19 18:00 03/08/19 19:59 02/08/19 08:38 Ferrous Sulfate (Feosol) 325 mg THREE TIMES A DAY ORAL 02/07/19 13:00 03/09/19 08:59 02/08/19 13:55 Folic Acid (Folate) 1 mg BID ORAL 02/07/19 18:00 03/09/19 08:59 02/08/19 08:37 Guaifenesin (Mucinex ER) 600 mg TWICE A DAY ORAL 02/07/19 18:00 03/09/19 08:59 02/08/19 08:38 Hydralazine HCl (Apresoline) 25 mg Q6H PRN ORAL SBP > 160mmHg 02/07/19 11:15 03/08/19 11:14 02/08/19 15:32 Insulin Aspart (NovoLOG) BEFORE MEALS AND HS SUBQ 02/07/19 12:30 03/08/19 12:29 02/08/19 16:07 Iopamidol (Isovue-300 100ml) 100 ml NOW PRN INJ Radiology Procedure 02/07/19 16:15 02/09/19 16:06 Isosorbide Mononitrate (Imdur) 30 mg DAILY ORAL 02/08/19 09:00 03/09/19 08:59 02/08/19 08:38 Losartan Potassium (Cozaar) 100 mg DAILY ORAL 02/08/19 09:00 03/09/19 08:59 02/08/19 08:39 Magnesium Hydroxide (Mom) 30 ml DAILYPRN PRN ORAL Constipation 02/08/19 15:30 03/10/19 15:29 02/08/19 16:08 Metoprolol Tartrate (Lopressor) 100 mg Q12HR ORAL 02/07/19 21:00 03/08/19 20:59 02/08/19 08:39 Morphine Sulfate (Morphine Sulfate) 2 mg Q2H PRN IVP Moderate Pain (Pain Scale 4-6) 02/07/19 16:15 02/14/19 16:14 02/07/19 21:16 Morphine Sulfate (Morphine Sulfate) 4 mg Q2H PRN IVP Severe Pain (Pain Scale 7-10) 02/07/19 16:15 02/14/19 16:14 Nateglinide (Starlix) 120 mg THREE TIMES A DAY ORAL 02/07/19 13:00 03/09/19 08:59 02/08/19 13:55 Nitroglycerin (Ntg) 0.4 mg Q5M PRN SL Prn Chest Pain 02/07/19 11:00 03/08/19 17:29 02/08/19 07:42 Ondansetron HCl (Zofran) 4 mg Q6H PRN IVP Nausea & Vomiting 02/07/19 11:15 03/08/19 11:14 Patient Own Medication (Patient's Own Med) 1 ea BID ORAL 02/07/19 18:00 03/09/19 17:59 02/08/19 08:35 Patient Own Medication (Patient's Own Med) 1 ea DAILY ORAL 02/08/19 09:00 03/10/19 08:59 02/08/19 08:35 Patient Own Medication (Patient's Own Med) 2 ea DAILY ORAL 02/08/19 09:00 03/10/19 08:59 02/08/19 08:35 Piperacillin Sod/ Tazobactam Sod 3.375 gm/Sodium Chloride 110 ml @ 27.5 mls/hr EVERY 8 HOURS IVPB 02/07/19 14:00 02/13/19 21:59 02/08/19 13:55 Polyethylene Glycol (Miralax) 17 gm BEDTIME ORAL 02/08/19 21:00 03/10/19 20:59 Sitagliptin Phosphate (Januvia) 100 mg DAILY ORAL 02/08/19 09:00 03/09/19 08:59 02/08/19 08:39 Sodium Chloride 1,000 ml @ 100 mls/hr Q10H IVLG 02/07/19 11:00 03/08/19 18:17 02/08/19 06:07 Vancomycin HCl (Vanco rx to dose) 1 ea DAILY PRN MISC Per rx protocol 02/07/19 11:15 03/09/19 11:14 Vitamin D (Vitamin D) 400 intlu DAILY ORAL 02/08/19 09:00 03/09/19 08:59 02/08/19 08:38 Russ Tony MD Feb 08, 2019 17:23
--- NOTE | 2019-02-08 18:49 | Cardiology Report ---
APPROVED REPORT EXAM: Two-dimensional and M-mode echocardiogram with Doppler and color Doppler. INDICATION Chest Pain M-Mode DIMENSIONS IVSd1.3 (0.7-1.1cm)Left Atrium (MM)3.5 (1.6-4.0cm) LVDd5.3 (3.5-5.6cm)Aortic Root3.3 (2.0-3.7cm) PWd1.3 (0.7-1.1cm)Aortic Cusp Exc.1.8 (1.5-2.0cm) IVSs1.9 cm LVDs3.1 (2.5-4.0cm) PWs2.0 cm Technically difficult study due to poor apical windows. Normal left ventricular chamber size, systolic function and wall motion Left ventricular ejection fraction estimated to be 60-65%. Mild left ventricular hypertrophy by 2-D. Anterior Echo-free space, may be due to pericardial fat or effusion. All other cardiac chamber sizes are within normal limits. Aortic valve calcification with normal cusp excursion . Mildly thickened mitral valve leaflets with normal excursion. Mild mitral annulus and aortic root calcification. Pulmonic valve not well visualized. IVC at normal size with physiologic collapse . A color flow and spectral Doppler study was performed and revealed: No aortic insufficiency . Mitral diastolic velocities suggest reduced left ventricular relaxation c/w mild LV diastolic dysfunction (Grade I ) Trace mitral regurgitation. Trace tricuspid regurgitation. Tricuspid systolic velocities suggests peak right ventricular systolic pressure of 40 mmHg,consistent with mild pulmonary HTN.
--- NOTE | 2019-02-08 19:23 | NUR ---
HAND-OFF: Report given to Carey ZARATE.
--- NOTE | 2019-02-08 19:28 | Cardiology Report ---
APPROVED REPORT EKG Measurement Heart [id number] [id number] Sinus tachycardia Nonspecific ST and T wave abnormality Abnormal ECG
--- NOTE | 2019-02-08 19:28 | NUR ---
RESPIRATORY NOTE: Received pt on BiPAP 05/26, backup rate 14, 40%. Pt on a Facial mask, skin intact,no redness/breakdowns noted. Foam tape applied on pt's nosebridge/cheeks/chin to prevent any mask irritations. Pt is alert/awake, follows commands. B/S elina. clear/diminished, nonproductive cough. BiPAP plugged into red outlet, alarms on & audible. Pt complaining of SOB, breathing tx currently being administered. Will continue to monitor pt.
--- NOTE | 2019-02-08 19:30 | NUR ---
NURSE NOTES: Report received from Vanesa ZARATE. Pt alert and oriented x3, able to make needs known. Pt on ekg monitor tech, St 111s. Bipap on 05/26, 96% oxygen saturation. No s/s of acute distress noted. Denies any pain or discomfort at this time. LFA 22 G with NS at 100 cc/hr. Instructed patient to use call light for assistance. Safety measures in place with bed locked and in lowest position, side rails x3 up and bed alarm on. Airborne precaution maintained and observed. Urinal and bedside commode provided. Will continue to monitor and continue plan of care.
--- NOTE | 2019-02-08 20:10 | NUR ---
NURSE NOTES: Called programmable logic controller assembler Dr. Lopez regarding pt with Xanax order 0.25mg Q6hr, pt still with anxiety due to BIPAP Dr. Lopez increase the Xanax to 0.5mg tab Po Q6HR PRN anxiety noted and carried out.
[2019-02-08] MEDS: Miralax 17gm pkt ORAL SCH (20:49)
[2019-02-08] MEDS: Atorvastatin 20mg tab ORAL SCH (20:51)
[2019-02-08] MEDS: ALPRAZolam 0.5mg tab ORAL PRN (20:51)
[2019-02-08] MEDS: Bactrim-DS 1 tab ORAL SCH (20:51)
[2019-02-08] MEDS: Vancomycin 1gm in D5W 275ml IVPB SCH (20:52)
[2019-02-08] MEDS: Enoxaparin 40mg Inj SUBQ SCH (20:54)
[2019-02-08] MEDS ORDERED: Atorvastatin 20mg tab ORAL SCH (21:00)
--- NOTE | 2019-02-08 22:10 | NUR ---
NURSE NOTES: Patient in bed watching TV. Patient able to use bedside commode. Instructed patient to relax and try not to move and cross legs while checking blood pressure to prevent wrong reading.
[2019-02-08] MEDS: Morphine Sulfate 4mg/ml Inj (IV USE ONLY) IVP PRN (23:45)
[2019-02-09] VITALS (40 sets, daily range): BP systolic 102–191; BP diastolic 50–105
[2019-02-09] MEDS: Albuterol/Ipratropium 3ml neb HHN SCH ×6 (01:00→23:31)
--- NOTE | 2019-02-09 01:16 | NUR ---
NURSE NOTES: Patient with continuos episode of removing the BIPAP and getting up from bed unassisted, reality orientation provided but pt non compliant. Explained the importance v/s risk and benefits still non-compliant. Pt on BIPAP 05/26 Fi02 55% satting 94%. Provided with 1:1 care. Will continue to monitor pt.
--- NOTE | 2019-02-09 01:22 | NUR ---
RESPIRATORY NOTE: Stat ABG ordered for this pt as he is becoming more restless, cold, & diaphoretic. See lab for results. BiPAP settings changed to BiPAP 20/5, backup rate 14, 100% to compensate w/ ABG results while waiting for order confirmation from MD Masoud. Pt still has increased WOB, elevated HR, still very restless. Will continue to monitor pt.
--- NOTE | 2019-02-09 01:40 | NUR ---
NURSE NOTES: Called Dr. Meredith regarding the pt condition desat to 78% stat ABG done PH 7.181, Pc02 55.9, p02 48.3 bicarb 20.4. 02 .3. pt skin cold and clammy pt on distress. Blood glucose 211mg/dl.Dr. Meredith with new order to intubate the pt. Charge nurse called ER . Dr. Zheng will intubate the pt.
--- NOTE | 2019-02-09 02:00 | NUR ---
NURSE NOTES: Dr. Zheng came and intubated the pt around 0200. Patient restless trying to pull out ETT placed bilateral soft wrist restraint. Pt is now on ETT to vent 7.5/25cm li line, AC 15, TV 600, fi02 100%, peep of 5 satting 100%. Placed Simon and OGT per MD. Ordered stat KUB and chest xray post intubation. Dr. Zheng ordered Diprivan drip noted and carried. Will continue to monitor the pt.
--- NOTE | 2019-02-09 02:10 | NUR ---
RESPIRATORY NOTE: MD Masoud ordered to have the pt intubated instead. Pt intubated by MD Marce w/ ETT 7.5 @ 25cm lipline, secured by anchorfast. Pt placed on Vent w/ settings: AC 15, 600VT, 100%, PEEP +5. Pt currently sedated. Both hands on soft restraints to prevent pt from self-extubation. Bite block also in place to prevent pt from biting down ETT. B/S elina. diminished, sxn scant amounts of thin, bloody secretions. Vent plugged into red outlet, ambubag at bedside. Pt tolerating well, will continue to monitor.
--- NOTE | 2019-02-09 02:46 | NUR ---
NURSE NOTES: Patient restless with episode of pulling out tubing reality orientation and talk therapy provided not effective. Started Propofol 5mcg/kg/min to Right F/A #20, Rass Score + 1 restless Will continue to monitor pt. Simon cath and OGT inserted per MD. KUB and chest xray ordered.
--- NOTE | 2019-02-09 03:01 | NUR ---
NURSE NOTES: Patient restless with episode of pulling out tubing reality orientation provided, repositioned not effective. Propofol 10mcg/kg/min to Right F/A #20 BP 123/63, Rass Score + 1 restless Will continue to monitor pt.
--- NOTE | 2019-02-09 03:16 | NUR ---
NURSE NOTES: Patient restless with episode of pulling out tubing reality orientation provided, repositioned not effective. titrated Propofol to 15mcg/kg/min to Right F/A #20 BP 123/66, Rass Score + 1 restless Will continue to monitor pt.
--- NOTE | 2019-02-09 03:22 | NUR ---
NURSE NOTES: Left message to Dr. Meredith regarding the Abg POST intubation and Vent settings no new order at this time.
--- NOTE | 2019-02-09 03:31 | NUR ---
NURSE NOTES: Patient restless with episode of pulling out tubing reality orientation provided, repositioned not effective. Propofol 20 mcg/kg/min to Right F/A #20 BP 123/63 Rass Score + 1 restless Will continue to monitor pt.
--- NOTE | 2019-02-09 03:36 | Emergency Room Report ---
History of Present Illness General Chief Complaint: Chest Pain Source: Medical Record Present Illness HPI This is a 58-year-old male admitted to the ICU for respiratory distress, sepsis , pneumonia and HIV. I was asked to evaluate this patient for respiratory distress and intubation. Unable to get any history because of patient condition. History is through nursing staff and reviewing the hospitalization on the computer. Allergies: Coded Allergies: No Known Allergies (Unverified , 02/05/13) Patient History Past Medical History: see triage record, old chart reviewed, HIV Past Surgical History: other Pertinent Family History: none Social History: Denies: smoking Immunizations: other Reviewed Nursing Documentation: PMH: Agreed; PSxH: Agreed Nursing Documentation-PMH Past Medical History: No History, Except For Hx Cardiac Problems: Yes Hx Hypertension: Yes Hx Diabetes: Yes Hx Cancer: No Hx Gastrointestinal Problems: No Hx Neurological Problems: Yes - STROKE Hx Vertigo: Yes Hx Dizziness: Yes Hx Headaches: Yes - Tension headaches Review of Systems Respiratory: Reports: shortness of breath All Other Systems: limited - Can Dixon to condition Physical Exam Vital Signs Date Time Temp Pulse Resp B/P (MAP) Pulse Ox O2 Delivery O2 Flow Rate FiO2 02/06/19 13:30 98.2 125 18 159/79 (105) 94 Room Air 02/06/19 15:00 3.0 02/06/19 15:25 40 Sp02 EP Interpretation: abnormal General Appearance: severe distress Head: normocephalic, atraumatic Eyes: bilateral eye PERRL, bilateral eye EOMI ENT: hearing grossly normal, normal pharynx Neck: full range of motion, supple, no meningismus Respiratory: chest non-tender, respiratory distress, decreased breath sounds, accessory muscle use, crackles, rhonchi Cardiovascular #1: regular rate, rhythm, no murmur, tachycardia Gastrointestinal: normal bowel sounds, non tender, no mass, no organomegaly, no bruit, non-distended Musculoskeletal: back normal, normal range of motion Neurologic: grossly normal Psychiatric: anxious Skin: other - Diaphoretic Procedures Critical Care Time Critical Care Time Critical care is mandated in this patient who presented with respiratory failure secondary to ARDS. Patient require my urgent intervention to attenuate the risks of respiratory collapse which may lead to cardiovascular collapse and . Critical care time is 35 minutes excluding any reportable procedure. Critical care time included evaluation, multiple reevaluation, looking at old charts, interpreting laboratory and diagnostic data, discussing case with patient and family and consultants, and charting. Intubation Intubation : Consent: Emergent Intubation Method: orotracheal Tube Size (cm): 7.5 Medications: Etomidate, Succinylcholine Breath Sounds after Intubation: equal Intubation Complications: no complications Post Intubation Xray: Yes Progress/Xray Impression: Multi lobar infiltrates. Endotracheal tube in good position. Attempts: One Patient Tolerated: Well Complications: None Medical Decision Making Diagnostic Impression: Primary Impression: Pneumonia Additional Impressions: HIV (human immunodeficiency virus infection) Respiratory distress Acute coronary syndrome Elevated troponin Hypoxia Acute hypoxemic respiratory failure ER Course Patient with acute respirator failure secondary to hypoxia. On my arrival to the , patient was in respiratory distress. He was diaphoretic and increased work of breathing. I elected to intubate the patient. Patient given etomidate and succinylcholine. Patient was intubated successfully. Placed on the ventilator. Chest x-ray ordered. Chest X-Ray Diagnostic Results Chest X-Ray Diagnostic Results : Chest X-Ray Ordered: Yes # of Views/Limited/Complete: 1 View Indication: Shortness of Breath EP Interpretation: Yes Interpretation: no effusion, no pneumothorax, other - Endotracheal tube in good position. Multi lobar infiltrates Impression: Other - s/p ETT. multilobar infiltrates Electronically Signed by: Gael Zheng MD Last Vital Signs Date Time Temp Pulse Resp B/P (MAP) Pulse Ox O2 Delivery O2 Flow Rate FiO2 02/09/19 02:46 22 115/96 Mechanical Ventilator 5.0 100 02/09/19 02:22 125 100 02/09/19 00:15 98.8 Status: improved Disposition: ADMITTED INPATIENT Condition: Critical Referrals: NON PHYSICIAN (PCP) Gael Zheng MD Feb 09, 2019 03:36
--- NOTE | 2019-02-09 03:46 | NUR ---
NURSE NOTES: Patient restless with episode of pulling out tubing reality orientation provided, repositioned not effective. titrated Propofol to 25mcg/kg/min to Right F/A #20 BP 123/66, Rass Score + 1 restless Will continue to monitor pt.
--- NOTE | 2019-02-09 03:48 | Diagnostic Imaging Report ---
FILM CXR 1 VIEW: Comparison: CXR 02/08/19 ET tube tip is 4 cm above level of christal. NG tube likely extends into the stomach, but overlying monitoring wires somewhat limit evaluation. Extensive right greater than left lung opacities with central predominance are advanced from prior. Considerations include pulmonary edema/ARDS. Infection not excluded. Stable cardiac silhouette.
--- NOTE | 2019-02-09 04:01 | NUR ---
NURSE NOTES: Patient continue on Propofol to 25mcg/kg/min to Right F/A #20 BP 127/63, Rass Score -2 light sedation Will continue to monitor pt.
[2019-02-09 05:40] LABS: BASOPHILS % (AUTO) 0.6 % (0.0-2.0); HEMATOCRIT 26.7 % (42.0-52.0); HEMOGLOBIN 8.6 G/DL (14.2-18.0); LYMPHOCYTES % (AUTO) 4.2 % (20.0-45.0); MEAN CORPUSCULAR VOLUME 86 FL (80-99); NEUTROPHILS % (AUTO) 81.1 % (45.0-75.0); PLATELET COUNT 160 K/UL (150-450); RED BLOOD COUNT 3.09 M/UL (4.70-6.10); RED CELL DISTRIBUTION WIDTH 17.8 % (11.6-14.8); WHITE BLOOD COUNT 8.2 K/UL (4.8-10.8)
[2019-02-09 05:57] LABS: ALANINE AMINOTRANSFERASE 44 U/L (12-78); ALBUMIN 2.2 G/DL (3.4-5.0); ALBUMIN/GLOBULIN RATIO 0.6 (1.0-2.7); ALKALINE PHOSPHATASE 124 U/L (46-116); ANION GAP 13 mmol/L (5-15); ASPARTATE AMINO TRANSFERASE 45 U/L (15-37); BILIRUBIN,TOTAL 0.5 MG/DL (0.2-1.0); BLOOD UREA NITROGEN 27 mg/dL (7-18); CARBON DIOXIDE 19 MMOL/L (21-32); CHLORIDE 102 MMOL/L (98-107); CREATININE 1.5 MG/DL (0.55-1.30); POTASSIUM 5.2 MMOL/L (3.5-5.1); SODIUM 134 MMOL/L (136-145)
--- NOTE | 2019-02-09 06:00 | NUR ---
NURSE NOTES: Patient on Propofol 25mcg/kg/min to Right F/A #20 BP 121/62 HR 97 SR, Rass Score 12 Light sedation. Turned and repositioned Q2 hour. Oral care and suctioned pt. Blood [id number]/dl with sliding scale insulin NovoLog. ETT to vent satting 100%. HOB elevated. Airborne precaution maintained and observed. Aurora oliveira.. Will continue to monitor pt Addendum: 02/10/19 at 0302 by SAJI MENDOZA RN RASS score -2
[2019-02-09] MEDS: Piperacillin/Tazobactam 3.375 GM in NS 110 ML IVPB SCH ×3 (06:30→21:56)
[2019-02-09] MEDS: NovoLOG Insulin Flexpen SUBQ SCH ×4 (06:31→21:03)
--- NOTE | 2019-02-09 07:15 | NUR ---
HAND-OFF: Report given to Salty ZARATE.
--- NOTE | 2019-02-09 07:38 | NUR ---
Pt is extremely agitated after sxn and attempting to pull at tube. Informed Carey ZARATE. Pt is bilaterally restrained. Addendum: 02/09/19 at 0739 by LORENZO MIKE RT Amended: Links added.
--- NOTE | 2019-02-09 07:43 | NUR ---
Titrated FiO2 to 90% to keep sats >88%. Addendum: 02/09/19 at 0743 by LORENZO MIKE RT Amended: Links added.
--- NOTE | 2019-02-09 07:45 | NUR ---
NURSE NOTES: Dr. Hernandez updated at the bedside, updated on patient temperature of 97.7 axillary and labs, no verbal orders given at this time.
--- NOTE | 2019-02-09 09:30 | NUR ---
NURSE NOTES: Dr. Francois updated on patient change of condition this morning, he was intubated for respiratory distress while on bipap with symptoms of desaturating and cold and clammy, no changes to blood pressure medication, odered to have perameters placed on Imdur and Losartan to hold for Systolic BP below 100 and hold metroprolol for systolic BP below 100 and HR less than 55.
--- NOTE | 2019-02-09 09:50 | Cardiac Electrophysiology PN ---
Assessment/Plan Assessment/Plan 1. Non-ST elevation myocardial infarction with peak troponin of more than 10. EKG shows nonspecific ST-T wave abnormalities. Eventually, he would need cardiac catheterization for further evaluation of his coronaries. Continue aspirin, Lipitor, Imdur and metoprolol 100 mg b.i.d. 2. Hypertension. Continue metoprolol 100 mg b.i.d., losartan 100 mg daily, and Imdur 30 mg daily. Also on p.r.n. hydralazine. 3. Respiratory failure due to Multilobar Pneumonia. In respiratory isolation on Abx per Dr. Mitchell 4. Hyperlipidemia. On Lipitor. 5. Human immunodeficiency virus. On anti-retroviral therapy with undetectable viral load. CANDELARIO RN Subjective Subjective In isolation was agitated on BIPAP in ICU and was intubated earlier today Objective Last 24 Hour Vital Signs Date Time Temp Pulse Resp B/P (MAP) Pulse Ox O2 Delivery O2 Flow Rate FiO2 02/09/19 09:08 104 18 100 02/09/19 09:00 105 18 132/65 (87) 100 02/09/19 08:30 111 21 145/70 (95) 100 02/09/19 08:27 24 158/82 Mechanical Ventilator 90 02/09/19 08:15 118 24 158/82 (107) 100 02/09/19 08:15 24 158/92 Mechanical Ventilator 90 02/09/19 08:00 122 02/09/19 08:00 90 02/09/19 08:00 30 191/86 Mechanical Ventilator 90 02/09/19 08:00 97.7 123 30 191/86 (121) 100 02/09/19 08:00 Mechanical Ventilator Mechanical Ventilator 02/09/19 07:45 109 25 140/79 (99) 100 02/09/19 07:42 110 19 90 Mechanical Ventilator 100 02/09/19 07:35 109 29 99 Mechanical Ventilator 100 02/09/19 07:30 93 18 100 02/09/19 07:30 93 23 119/65 (83) 100 02/09/19 07:00 98.2 94 23 126/63 (84) 100 02/09/19 07:00 21 119/56 Endotracheal Tube 100 02/09/19 06:00 97 23 121/62 (81) 100 02/09/19 06:00 23 121/62 Endotracheal Tube 100 02/09/19 05:18 104 22 100 02/09/19 05:00 111 21 119/65 (83) 100 02/09/19 05:00 22 114/62 Endotracheal Tube 100 02/09/19 04:01 21 127/63 Endotracheal Tube 100.0 02/09/19 04:01 98.4 109 21 127/63 (84) 100 02/09/19 04:00 Bi-pap 02/09/19 04:00 111 02/09/19 04:00 100 02/09/19 03:46 108 21 123/60 (81) 100 02/09/19 03:46 20 123/60 Endotracheal Tube 100 02/09/19 03:31 110 21 115/61 (79) 100 02/09/19 03:31 21 120/63 Endotracheal Tube 100 02/09/19 03:28 112 25 100 02/09/19 03:16 27 123/63 Endotracheal Tube 100 02/09/19 03:16 112 24 120/63 (82) 99 02/09/19 03:01 117 28 123/63 (83) 98 02/09/19 03:01 20 123/63 Endotracheal Tube 100 02/09/19 02:46 117 26 140/84 (102) 98 02/09/19 02:46 22 115/96 Mechanical Ventilator 5.0 100 02/09/19 02:22 125 22 100 Mechanical Ventilator 100 02/09/19 02:11 123 22 100 Mechanical Ventilator 100 02/09/19 02:05 129 22 100 02/09/19 02:00 123 28 169/85 (113) 92 02/09/19 02:00 100 02/09/19 01:22 Bi-Pap 100 02/09/19 01:22 Bi-Pap 100 02/09/19 01:22 100 02/09/19 01:00 125 32 122/105 (111) 79 02/09/19 00:52 125 38 95 Facial 55 02/09/19 00:15 98.8 02/09/19 00:00 108 02/09/19 00:00 Bi-pap 02/09/19 00:00 98.8 115 24 115/96 (102) 98 02/08/19 23:00 103 33 160/92 (114) 98 02/08/19 22:46 105 31 98 Facial 40 02/08/19 22:00 103 33 171/82 (111) 98 02/08/19 21:30 117 33 168/84 (112) 98 02/08/19 21:03 118 32 100 Facial 40 02/08/19 21:00 115 31 195/78 (117) 98 02/08/19 20:50 113 176/76 02/08/19 20:00 40 02/08/19 20:00 Bi-pap 02/08/19 20:00 98.8 115 31 188/94 (125) 98 02/08/19 20:00 115 02/08/19 19:36 121 36 100 Bi-Pap 40 02/08/19 19:26 118 34 98 Bi-Pap 40 02/08/19 19:26 118 34 98 Facial 40 02/08/19 19:00 107 31 165/87 (113) 98 02/08/19 18:00 105 31 155/87 (109) 100 02/08/19 17:00 107 31 138/108 (118) 98 02/08/19 16:48 109 32 98 Full Face 40 02/08/19 16:00 114 02/08/19 16:00 Nasal Cannula 5.0 02/08/19 16:00 98.4 112 29 182/92 (122) 92 02/08/19 16:00 40 02/08/19 15:32 173/88 02/08/19 15:00 106 35 173/88 (116) 97 02/08/19 14:59 106 24 97 Full Face 40 02/08/19 14:00 105 32 173/107 (129) 98 02/08/19 13:39 105 30 99 Bi-Pap 40 02/08/19 13:28 103 32 100 Facial 40 02/08/19 13:27 103 32 100 Bi-Pap 40 02/08/19 13:00 103 32 155/109 (124) 97 02/08/19 12:00 40 02/08/19 12:00 98.9 100 30 166/69 (101) 97 02/08/19 12:00 Bi-pap 02/08/19 12:00 104 02/08/19 11:00 100 30 166/69 (101) 97 02/08/19 10:32 101 31 96 Full Face 40 02/08/19 10:00 100 31 175/89 (117) 97 Intake and Output 02/08/19 02/09/19 19:00 07:00 Intake Total 1807.5 ml 1871.818 ml Output Total 700 ml 250 ml Balance 1107.5 ml 1621.818 ml Intake Oral 450 ml 200 ml IV Total 1357.5 ml 1671.818 ml Output Urine Total 700 ml 250 ml Laboratory Tests Test 02/08/19 17:45 02/09/19 01:05 02/09/19 02:53 02/09/19 05:00 Random Vancomycin Level 5.9 ug/mL Arterial Blood pH 7.181 (7.350-7.450) 7.236 (7.350-7.450) Arterial Blood Partial Pressure CO2 55.9 mmHg (35.0-45.0) *H 42.6 mmHg (35.0-45.0) Arterial Blood Partial Pressure O2 48.3 mmHg (75.0-100.0) 86.3 mmHg (75.0-100.0) Arterial Blood HCO3 20.4 mmol/L (22.0-26.0) L 17.7 mmol/L (22.0-26.0) *L Arterial Blood Oxygen Saturation 73.3 % (95-100) *L 94.7 % (95-100) L Arterial Blood Base Excess -8.1 (-2-2) L -9.3 (-2-2) *L Benny Test Positive Positive White Blood Count 8.2 K/UL (4.8-10.8) Red Blood Count 3.09 M/UL (4.70-6.10) L Hemoglobin 8.6 G/DL (14.2-18.0) L Hematocrit 26.7 % (42.0-52.0) L Mean Corpuscular Volume 86 FL (80-99) Mean Corpuscular Hemoglobin 27.9 PG (27.0-31.0) Mean Corpuscular Hemoglobin Concent 32.4 G/DL (32.0-36.0) Red Cell Distribution Width 17.8 % (11.6-14.8) H Platelet Count 160 K/UL (150-450) Mean Platelet Volume 5.2 FL (6.5-10.1) L Neutrophils (%) (Auto) 81.1 % (45.0-75.0) H Lymphocytes (%) (Auto) 4.2 % (20.0-45.0) L Monocytes (%) (Auto) 14.0 % (1.0-10.0) H Eosinophils (%) (Auto) 0.0 % (0.0-3.0) Basophils (%) (Auto) 0.6 % (0.0-2.0) Sodium Level 134 MMOL/L (136-145) L Potassium Level 5.2 MMOL/L (3.5-5.1) H Chloride Level 102 MMOL/L (98-107) Carbon Dioxide Level 19 MMOL/L (21-32) L Anion Gap 13 mmol/L (5-15) Blood Urea Nitrogen 27 mg/dL (7-18) H Creatinine 1.5 MG/DL (0.55-1.30) H Estimat Glomerular Filtration Rate 47.9 mL/min (>60) Glucose Level 327 MG/DL (74-106) #H Calcium Level 8.0 MG/DL (8.5-10.1) L Total Bilirubin 0.5 MG/DL (0.2-1.0) Aspartate Amino Transf (AST/SGOT) 45 U/L (15-37) H Alanine Aminotransferase (ALT/SGPT) 44 U/L (12-78) Alkaline Phosphatase 124 U/L (46-116) H Total Protein 5.8 G/DL (6.4-8.2) L Albumin 2.2 G/DL (3.4-5.0) L Globulin 3.6 g/dL Albumin/Globulin Ratio 0.6 (1.0-2.7) L Triglycerides Level 129 MG/DL (30-150) Test 02/09/19 07:45 TB Test (T-Spot) Pending TB Test Nil Control (T-Spot) Pending TB Test Panel A (T-Spot) Pending TB Test Panel B (T-Spot) Pending TB Test Positive Control (T-Spot) Pending Microbiology Date/Time Source Procedure Growth Status 02/06/19 14:15 Blood Blood Culture - Preliminary NO GROWTH AFTER 24 HOURS Resulted 02/06/19 14:00 Blood Blood Culture - Preliminary NO GROWTH AFTER 24 HOURS Resulted 02/08/19 22:30 Sputum Induced Gram Stain - Final Resulted 02/08/19 22:30 Sputum Induced Sputum Culture Pending Resulted 02/06/19 17:10 Nasal Nares MRSA Culture - Final NO METHICILLIN RESISTANT STAPH AUREUS... Complete 02/06/19 16:00 Nasal Nares - Final Complete 02/06/19 16:00 Nasal Nares - Final Complete 02/06/19 17:10 Rectal Mucosa - Final NO CARBAPENEM-RESISTANT ENTEROBACTERI... Complete 02/06/19 17:10 Rectal Mucosa VRE Culture - Final NO VANCOMYCIN RESISTANT ENTEROCOCCUS ... Complete Objective HEAD AND NECK: No JVD.Orally intubated LUNGS: Coarse rhonchi. CARDIOVASCULAR: Regular S1 and S2 with no gallop or murmur. ABDOMEN: Soft. EXTREMITIES: No pitting edema. Murray Francois MD Feb 09, 2019 09:50
[2019-02-09] MEDS: Azithromycin 250 MG in NS 275 ML IV SCH (10:21)
[2019-02-09] MEDS: Vancomycin 1gm in D5W 275ml IVPB SCH ×2 (10:21→20:55)
[2019-02-09] MEDS: TENOFOVIR DISOPROXIL FUMARATE 300 MG ORAL SCH (10:23)
[2019-02-09] MEDS: RALTEGRAVIR 400 MG ORAL SCH ×2 (10:23→17:56)
[2019-02-09] MEDS: ETRAVIRINE 200 MG ORAL SCH (10:23)
[2019-02-09] MEDS: Losartan 50mg tab ORAL SCH (10:24)
[2019-02-09] MEDS: Vitamin D 400 INTLU TAB ORAL SCH (10:24)
[2019-02-09] MEDS: guaiFENesin ER 600mg tab ORAL SCH ×2 (10:25→17:55)
[2019-02-09] MEDS: Imdur 30mg tab ORAL SCH (10:25)
[2019-02-09] MEDS: DULoxetine 30mg cap ORAL SCH (10:26)
[2019-02-09] MEDS: Docusate 100mg cap ORAL SCH (10:26)
[2019-02-09] MEDS: Aspirin EC 81mg tab ORAL SCH (10:26)
--- NOTE | 2019-02-09 11:20 | Diagnostic Imaging Report ---
Indication: Post nasogastric tube placement Technique: Supine view of the abdomen Comparison: none Findings: Exam is somewhat limited, as patient was reportedly uncooperative per technologist. There is a nasogastric tube in place, tip which projects at the level gastric antrum. The visualized bowel gas is unremarkable. The included lung bases demonstrate fairly extensive parenchymal disease bilaterally. Impression: Satisfactory position of nasogastric tube This agrees with the preliminary interpretation provided overnight by [facility] teleradiology service.
--- NOTE | 2019-02-09 11:35 | NUR ---
NURSE NOTES: Dr. Meredith notified of patient morning ABG and ordered to have Ventilator setting evaluated by obtaining another within an hour of changing setting to AC 24, TV: 550, FIo2: to titrate, and peep of 5. also ordered to have duoned HHN to be changed to Q4hrs and would like to have a bronchoscopy to bed ready for 1400. patient remains saturating at 100% on FIo2 of 80% with peep of 5, heart rate remains at 80-85 in sinus rhythm, patient RR are 15-16 with volumes of 625-675ml/per breaths. patient remains on propofol drip at 40mcg/kg/min to sedate patient for agitation, patient is also on restraints with skin intact and skin warm and pink, pulses are present with distal to restraints. patient remains at RASS of -2 with opening of eyes less than three seconds and patient reacting to light pain over the fingers.
--- NOTE | 2019-02-09 11:43 | Pulmonolgy Critical Care Note ---
Critical Care - Asmt/Plan Problems: (1) Endotracheally intubated (2) Acute hypoxemic respiratory failure (3) Pneumonia (4) NSTEMI (non-ST elevated myocardial infarction) (5) AIDS (6) HIV disease (7) Hypertension (8) MDD (major depressive disorder), recurrent episode, moderate (9) Anemia (10) CKD (chronic kidney disease) (11) History of stroke (12) Diabetes (13) Anxiety Assessment/Plan: VDRF ARDS Acute respiratory failure B pulmonary infiltrates, ? multilobar CAP vs atypical infection vs other ? PJP AIDS (CD4 191) NSTEMI H/O prior CVA HTN HL DM CKD Anemia PLAN: Based on IBW 77 gk, TV 460-616: will change vent to AC 24, TV 550 Titrate down FiO2, then PEEP to keep SaO2 > 90 RTC and PRN HHN's Continue Abx per ID (Zosyn, Vanco, Azithro), will add IV [id number]-[id number] for now F/U ID recs, F/U CX's F/U CT chest - not done yet Bronch @ bedside @ 2 pm Monitor volumes and renal function, mIVF F/U cards recs: ASA, statin, ARB, per cards hold off on IVUH, continue LMWH Px, will need further ischemia eval/cath once stabilized DVT Px: LMWH ICU sedation, continue Propofol, monitor triglycerides Monitor BS, continue SSI Patient has no next of kin to consent. Bronchoscopy is medically indicated and emergent. D/W Alessandro Galvez and Simin Time Spent (Minutes): 60 Notes Reviewed: major gifts officer, cardio, ID Discussed with: nurses, consultants Critical Care - Objective Last 24 Hour Vital Signs Date Time Temp Pulse Resp B/P (MAP) Pulse Ox O2 Delivery O2 Flow Rate FiO2 02/09/19 11:05 89 17 100 02/09/19 10:30 98 17 119/68 (85) 100 02/09/19 10:25 132/66 02/09/19 10:24 97 132/66 02/09/19 10:24 132/66 02/09/19 10:00 100 17 122/66 (84) 100 02/09/19 09:30 103 18 117/64 (81) 100 02/09/19 09:08 104 18 100 02/09/19 09:00 105 18 132/65 (87) 100 02/09/19 08:30 111 21 145/70 (95) 100 02/09/19 08:27 24 158/82 Mechanical Ventilator 90 02/09/19 08:15 118 24 158/82 (107) 100 02/09/19 08:15 24 158/92 Mechanical Ventilator 90 02/09/19 08:00 122 02/09/19 08:00 90 02/09/19 08:00 30 191/86 Mechanical Ventilator 90 02/09/19 08:00 97.7 123 30 191/86 (121) 100 02/09/19 08:00 Mechanical Ventilator Mechanical Ventilator 02/09/19 07:45 109 25 140/79 (99) 100 02/09/19 07:42 110 19 90 Mechanical Ventilator 100 02/09/19 07:35 109 29 99 Mechanical Ventilator 100 02/09/19 07:30 93 18 100 02/09/19 07:30 93 23 119/65 (83) 100 02/09/19 07:00 98.2 94 23 126/63 (84) 100 02/09/19 07:00 21 119/56 Endotracheal Tube 100 02/09/19 06:00 97 23 121/62 (81) 100 02/09/19 06:00 23 121/62 Endotracheal Tube 100 02/09/19 05:18 104 22 100 02/09/19 05:00 111 21 119/65 (83) 100 02/09/19 05:00 22 114/62 Endotracheal Tube 100 02/09/19 04:01 21 127/63 Endotracheal Tube 100.0 02/09/19 04:01 98.4 109 21 127/63 (84) 100 02/09/19 04:00 Bi-pap 02/09/19 04:00 111 02/09/19 04:00 100 02/09/19 03:46 108 21 123/60 (81) 100 02/09/19 03:46 20 123/60 Endotracheal Tube 100 02/09/19 03:31 110 21 115/61 (79) 100 02/09/19 03:31 21 120/63 Endotracheal Tube 100 02/09/19 03:28 112 25 100 02/09/19 03:16 27 123/63 Endotracheal Tube 100 02/09/19 03:16 112 24 120/63 (82) 99 02/09/19 03:01 117 28 123/63 (83) 98 02/09/19 03:01 20 123/63 Endotracheal Tube 100 02/09/19 02:46 117 26 140/84 (102) 98 02/09/19 02:46 22 115/96 Mechanical Ventilator 5.0 100 02/09/19 02:22 125 22 100 Mechanical Ventilator 100 02/09/19 02:11 123 22 100 Mechanical Ventilator 100 02/09/19 02:05 129 22 100 02/09/19 02:00 123 28 169/85 (113) 92 02/09/19 02:00 100 02/09/19 01:22 Bi-Pap 100 02/09/19 01:22 Bi-Pap 100 02/09/19 01:22 100 02/09/19 01:00 125 32 122/105 (111) 79 02/09/19 00:52 125 38 95 Facial 55 02/09/19 00:15 98.8 02/09/19 00:00 108 02/09/19 00:00 Bi-pap 02/09/19 00:00 98.8 115 24 115/96 (102) 98 02/08/19 23:00 103 33 160/92 (114) 98 02/08/19 22:46 105 31 98 Facial 40 02/08/19 22:00 103 33 171/82 (111) 98 02/08/19 21:30 117 33 168/84 (112) 98 02/08/19 21:03 118 32 100 Facial 40 02/08/19 21:00 115 31 195/78 (117) 98 02/08/19 20:50 113 176/76 02/08/19 20:00 40 02/08/19 20:00 Bi-pap 02/08/19 20:00 98.8 115 31 188/94 (125) 98 02/08/19 20:00 115 02/08/19 19:36 121 36 100 Bi-Pap 40 02/08/19 19:26 118 34 98 Bi-Pap 40 02/08/19 19:26 118 34 98 Facial 40 02/08/19 19:00 107 31 165/87 (113) 98 02/08/19 18:00 105 31 155/87 (109) 100 02/08/19 17:00 107 31 138/108 (118) 98 02/08/19 16:48 109 32 98 Full Face 40 02/08/19 16:00 114 02/08/19 16:00 Nasal Cannula 5.0 02/08/19 16:00 98.4 112 29 182/92 (122) 92 02/08/19 16:00 40 02/08/19 15:32 173/88 02/08/19 15:00 106 35 173/88 (116) 97 02/08/19 14:59 106 24 97 Full Face 40 02/08/19 14:00 105 32 173/107 (129) 98 02/08/19 13:39 105 30 99 Bi-Pap 40 02/08/19 13:28 103 32 100 Facial 40 02/08/19 13:27 103 32 100 Bi-Pap 40 02/08/19 13:00 103 32 155/109 (124) 97 02/08/19 12:00 40 02/08/19 12:00 98.9 100 30 166/69 (101) 97 02/08/19 12:00 Bi-pap 02/08/19 12:00 104 Status: other - intubated, sedated Condition: critical HEENT: atraumatic, normocephalic Lungs: rhonchi Heart: HR/BP stable Abdomen: soft, non-tender, active bowel sounds Extremities: no C/C/E Micro: Microbiology Date/Time Source Procedure Growth Status 02/06/19 14:15 Blood Blood Culture - Preliminary NO GROWTH AFTER 24 HOURS Resulted 02/06/19 14:00 Blood Blood Culture - Preliminary NO GROWTH AFTER 24 HOURS Resulted 02/08/19 22:30 Sputum Induced Gram Stain - Final Resulted 02/08/19 22:30 Sputum Induced Sputum Culture Pending Resulted 02/06/19 17:10 Nasal Nares MRSA Culture - Final NO METHICILLIN RESISTANT STAPH AUREUS... Complete 02/06/19 16:00 Nasal Nares - Final Complete 02/06/19 16:00 Nasal Nares - Final Complete 02/06/19 17:10 Rectal Mucosa - Final NO CARBAPENEM-RESISTANT ENTEROBACTERI... Complete 02/06/19 17:10 Rectal Mucosa VRE Culture - Final NO VANCOMYCIN RESISTANT ENTEROCOCCUS ... Complete Accucheck: 320 Blood Sugars: BS not controlled Critical Care - Subjective ROS Limited/Unobtainable: Yes ICU Day: 4 Intubation Day: 1 Interval Events: Sedated on propofol 7./97 FiO2 80, PEEP 5 TV 600, RR 16 - breathing @ set rate Condition: critical IV Access: peripheral EKG Rhythm: Sinus Tachycardia FI02: 100 Vent Support Breath Rate: 15 Vent Support Mode: AC Vent Tidal Volume: 600 Sputum Amount: None PEEP: 5.0 PIP: 30 Fluids: NS@100 I&O: Intake and Output 02/08/19 02/09/19 19:00 07:00 Intake Total 1807.5 ml 1871.818 ml Output Total 700 ml 250 ml Balance 1107.5 ml 1621.818 ml Intake Oral 450 ml 200 ml IV Total 1357.5 ml 1671.818 ml Output Urine Total 700 ml 250 ml Subjective: Sedated on propofol CXR: B infiltrates/ARDS ET-Tube: 7.5 ET Position: 25 Labs: Laboratory Tests Test 02/08/19 17:45 02/09/19 01:05 02/09/19 02:53 02/09/19 05:00 Random Vancomycin Level 5.9 ug/mL Arterial Blood pH 7.181 (7.350-7.450) 7.236 (7.350-7.450) Arterial Blood Partial Pressure CO2 55.9 mmHg (35.0-45.0) *H 42.6 mmHg (35.0-45.0) Arterial Blood Partial Pressure O2 48.3 mmHg (75.0-100.0) 86.3 mmHg (75.0-100.0) Arterial Blood HCO3 20.4 mmol/L (22.0-26.0) L 17.7 mmol/L (22.0-26.0) *L Arterial Blood Oxygen Saturation 73.3 % (95-100) *L 94.7 % (95-100) L Arterial Blood Base Excess -8.1 (-2-2) L -9.3 (-2-2) *L Benny Test Positive Positive White Blood Count 8.2 K/UL (4.8-10.8) Red Blood Count 3.09 M/UL (4.70-6.10) L Hemoglobin 8.6 G/DL (14.2-18.0) L Hematocrit 26.7 % (42.0-52.0) L Mean Corpuscular Volume 86 FL (80-99) Mean Corpuscular Hemoglobin 27.9 PG (27.0-31.0) Mean Corpuscular Hemoglobin Concent 32.4 G/DL (32.0-36.0) Red Cell Distribution Width 17.8 % (11.6-14.8) H Platelet Count 160 K/UL (150-450) Mean Platelet Volume 5.2 FL (6.5-10.1) L Neutrophils (%) (Auto) 81.1 % (45.0-75.0) H Lymphocytes (%) (Auto) 4.2 % (20.0-45.0) L Monocytes (%) (Auto) 14.0 % (1.0-10.0) H Eosinophils (%) (Auto) 0.0 % (0.0-3.0) Basophils (%) (Auto) 0.6 % (0.0-2.0) Sodium Level 134 MMOL/L (136-145) L Potassium Level 5.2 MMOL/L (3.5-5.1) H Chloride Level 102 MMOL/L (98-107) Carbon Dioxide Level 19 MMOL/L (21-32) L Anion Gap 13 mmol/L (5-15) Blood Urea Nitrogen 27 mg/dL (7-18) H Creatinine 1.5 MG/DL (0.55-1.30) H Estimat Glomerular Filtration Rate 47.9 mL/min (>60) Glucose Level 327 MG/DL (74-106) #H Calcium Level 8.0 MG/DL (8.5-10.1) L Total Bilirubin 0.5 MG/DL (0.2-1.0) Aspartate Amino Transf (AST/SGOT) 45 U/L (15-37) H Alanine Aminotransferase (ALT/SGPT) 44 U/L (12-78) Alkaline Phosphatase 124 U/L (46-116) H Total Protein 5.8 G/DL (6.4-8.2) L Albumin 2.2 G/DL (3.4-5.0) L Globulin 3.6 g/dL Albumin/Globulin Ratio 0.6 (1.0-2.7) L Triglycerides Level 129 MG/DL (30-150) Test 02/09/19 07:45 TB Test (T-Spot) Pending TB Test Nil Control (T-Spot) Pending TB Test Panel A (T-Spot) Pending TB Test Panel B (T-Spot) Pending TB Test Positive Control (T-Spot) Pending Brett Meredith MD Feb 09, 2019 11:43
--- NOTE | 2019-02-09 11:46 | General Progress Note ---
Assessment/Plan Status: stable Assessment/Plan: 58 y Male admitted to the hospital due to fever, shortness of breath and chest pain. # Multilobar pneumonia in patient with HIV- worse - Broad sp atbx. Will continue Zosyn, Vancomycin and Azithromycin - Bactrim added for PCP coverage - Droplet precaution - Flu swab ordered. If positive will need antiviral therapy - Oxygen support - ID consult appreciated. AFB, cocci, hystoplasma, legionella, ordered. . - Patient needs emergent bronchoscopy given florid ARDS without clear etiology # Acute Hypoxemic respiratory failure # ARDS - Cont mechanical ventilation - emergent bronchoscopy - Due to pneumonia # NSTEMI - EKG with bifascicular block RBB and LAFB, no ST changes. - Trend troponin x3 - ECHO completed with no WMA and preserved EF. Dr. Francois consulted. Consideration for outpatient cath vs possibly myocarditis due to underlying viral infection. No evidence of Takotsubo per TTE. - NGT prn - Pain control with morphine # HIV - Continue HARRT - VL is undetectable per patient report. 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 Pt intubated and sedated, unable to provide additional history. Objective Last 24 Hour Vital Signs Date Time Temp Pulse Resp B/P (MAP) Pulse Ox O2 Delivery O2 Flow Rate FiO2 02/09/19 11:05 89 17 100 02/09/19 10:30 98 17 119/68 (85) 100 02/09/19 10:25 132/66 02/09/19 10:24 97 132/66 02/09/19 10:24 132/66 02/09/19 10:00 100 17 122/66 (84) 100 02/09/19 09:30 103 18 117/64 (81) 100 02/09/19 09:08 104 18 100 02/09/19 09:00 105 18 132/65 (87) 100 02/09/19 08:30 111 21 145/70 (95) 100 02/09/19 08:27 24 158/82 Mechanical Ventilator 90 02/09/19 08:15 118 24 158/82 (107) 100 02/09/19 08:15 24 158/92 Mechanical Ventilator 90 02/09/19 08:00 122 02/09/19 08:00 90 02/09/19 08:00 30 191/86 Mechanical Ventilator 90 02/09/19 08:00 97.7 123 30 191/86 (121) 100 02/09/19 08:00 Mechanical Ventilator Mechanical Ventilator 02/09/19 07:45 109 25 140/79 (99) 100 02/09/19 07:42 110 19 90 Mechanical Ventilator 100 02/09/19 07:35 109 29 99 Mechanical Ventilator 100 02/09/19 07:30 93 18 100 02/09/19 07:30 93 23 119/65 (83) 100 02/09/19 07:00 98.2 94 23 126/63 (84) 100 02/09/19 07:00 21 119/56 Endotracheal Tube 100 02/09/19 06:00 97 23 121/62 (81) 100 02/09/19 06:00 23 121/62 Endotracheal Tube 100 02/09/19 05:18 104 22 100 02/09/19 05:00 111 21 119/65 (83) 100 02/09/19 05:00 22 114/62 Endotracheal Tube 100 02/09/19 04:01 21 127/63 Endotracheal Tube 100.0 02/09/19 04:01 98.4 109 21 127/63 (84) 100 02/09/19 04:00 Bi-pap 02/09/19 04:00 111 02/09/19 04:00 100 02/09/19 03:46 108 21 123/60 (81) 100 02/09/19 03:46 20 123/60 Endotracheal Tube 100 02/09/19 03:31 110 21 115/61 (79) 100 02/09/19 03:31 21 120/63 Endotracheal Tube 100 02/09/19 03:28 112 25 100 02/09/19 03:16 27 123/63 Endotracheal Tube 100 02/09/19 03:16 112 24 120/63 (82) 99 02/09/19 03:01 117 28 123/63 (83) 98 02/09/19 03:01 20 123/63 Endotracheal Tube 100 02/09/19 02:46 117 26 140/84 (102) 98 02/09/19 02:46 22 115/96 Mechanical Ventilator 5.0 100 02/09/19 02:22 125 22 100 Mechanical Ventilator 100 02/09/19 02:11 123 22 100 Mechanical Ventilator 100 02/09/19 02:05 129 22 100 02/09/19 02:00 123 28 169/85 (113) 92 02/09/19 02:00 100 02/09/19 01:22 Bi-Pap 100 02/09/19 01:22 Bi-Pap 100 02/09/19 01:22 100 02/09/19 01:00 125 32 122/105 (111) 79 02/09/19 00:52 125 38 95 Facial 55 02/09/19 00:15 98.8 02/09/19 00:00 108 02/09/19 00:00 Bi-pap 02/09/19 00:00 98.8 115 24 115/96 (102) 98 02/08/19 23:00 103 33 160/92 (114) 98 02/08/19 22:46 105 31 98 Facial 40 02/08/19 22:00 103 33 171/82 (111) 98 02/08/19 21:30 117 33 168/84 (112) 98 02/08/19 21:03 118 32 100 Facial 40 02/08/19 21:00 115 31 195/78 (117) 98 02/08/19 20:50 113 176/76 02/08/19 20:00 40 02/08/19 20:00 Bi-pap 02/08/19 20:00 98.8 115 31 188/94 (125) 98 02/08/19 20:00 115 02/08/19 19:36 121 36 100 Bi-Pap 40 02/08/19 19:26 118 34 98 Bi-Pap 40 02/08/19 19:26 118 34 98 Facial 40 02/08/19 19:00 107 31 165/87 (113) 98 02/08/19 18:00 105 31 155/87 (109) 100 02/08/19 17:00 107 31 138/108 (118) 98 02/08/19 16:48 109 32 98 Full Face 40 02/08/19 16:00 114 02/08/19 16:00 Nasal Cannula 5.0 02/08/19 16:00 98.4 112 29 182/92 (122) 92 02/08/19 16:00 40 02/08/19 15:32 173/88 02/08/19 15:00 106 35 173/88 (116) 97 02/08/19 14:59 106 24 97 Full Face 40 02/08/19 14:00 105 32 173/107 (129) 98 02/08/19 13:39 105 30 99 Bi-Pap 40 02/08/19 13:28 103 32 100 Facial 40 02/08/19 13:27 103 32 100 Bi-Pap 40 02/08/19 13:00 103 32 155/109 (124) 97 02/08/19 12:00 40 02/08/19 12:00 98.9 100 30 166/69 (101) 97 02/08/19 12:00 Bi-pap 02/08/19 12:00 104 Intake and Output 02/08/19 02/09/19 19:00 07:00 Intake Total 1807.5 ml 1871.818 ml Output Total 700 ml 250 ml Balance 1107.5 ml 1621.818 ml Intake Oral 450 ml 200 ml IV Total 1357.5 ml 1671.818 ml Output Urine Total 700 ml 250 ml Laboratory Tests 02/08/19 17:45: Random Vancomycin Level 5.9 02/09/19 01:05: Arterial Blood pH 7.181*L, Arterial Blood Partial Pressure CO2 55.9*H, Arterial Blood Partial Pressure O2 48.3*L, Arterial Blood HCO3 20.4L, Arterial Blood Oxygen Saturation 73.3*L, Arterial Blood Base Excess -8.1L, Benny Test Positive 02/09/19 02:53: Arterial Blood pH 7.236*L, Arterial Blood Partial Pressure CO2 42.6, Arterial Blood Partial Pressure O2 86.3, Arterial Blood HCO3 17.7*L, Arterial Blood Oxygen Saturation 94.7L, Arterial Blood Base Excess -9.3*L, Benny Test Positive 02/09/19 05:00: White Blood Count 8.2, Red Blood Count 3.09L, Hemoglobin 8.6L, Hematocrit 26.7L , Mean Corpuscular Volume 86, Mean Corpuscular Hemoglobin 27.9, Mean Corpuscular Hemoglobin Concent 32.4, Red Cell Distribution Width 17.8H, Platelet Count 160, Mean Platelet Volume 5.2L, Neutrophils (%) (Auto) 81.1H, Lymphocytes (%) (Auto) 4.2L, Monocytes (%) (Auto) 14.0H, Eosinophils (%) (Auto) 0.0, Basophils (%) (Auto) 0.6, Sodium Level 134L, Potassium Level 5.2H, Chloride Level 102, Carbon Dioxide Level 19L, Anion Gap 13, Blood Urea Nitrogen 27H, Creatinine 1.5H, Estimat Glomerular Filtration Rate 47.9, Glucose Level 327 #H, Calcium Level 8.0L, Total Bilirubin 0.5, Aspartate Amino Transf (AST/SGOT) 45H, Alanine Aminotransferase (ALT/SGPT) 44, Alkaline Phosphatase 124H, Total Protein 5.8L, Albumin 2.2L, Globulin 3.6, Albumin/Globulin Ratio 0.6L, Triglycerides Level 129 02/09/19 07:45: TB Test (T-Spot) [Pending], TB Test Nil Control (T-Spot) [Pending], TB Test Panel A (T-Spot) [Pending], TB Test Panel B (T-Spot) [Pending], TB Test Positive Control (T-Spot) [Pending] Height (Feet): 6 Height (Inches): 0.00 Weight (Pounds): 215 Objective General Appearance: Intubated, sedated. 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
--- NOTE | 2019-02-09 11:50 | NUR ---
Vent settings changed. Rate now 22 Vt 550. Titrated FiO2 down to 70%, keep sats greater than 90%. ABG in one hour. Addendum: 02/09/19 at 1151 by LORENZO MIKE RT Amended: Links added.
--- NOTE | 2019-02-09 12:50 | NUR ---
HAND-OFF: Report given to TESSA Whitt.
--- NOTE | 2019-02-09 13:44 | NUR ---
RD ASSESSMENT & RECOMMENDATIONS SEE CARE ACTIVITY FOR COMPLETE ASSESSMENT DAILY ESTIMATED NEEDS: Needs based on Critical care, HIV 85kg adj 22-30 kcals/kg 7871-3364 total kcals 1.2-2 g protein/kg 102-170 g total protein 25-30 mL/kg 2114-6986 total fluid mLs NUTRITION DIAGNOSIS: Swallowing difficulty r/t respiratory status as evidenced by pt on bipap, desat to 78%, critical ABG results, now orally intubated, ICU status. ENTERAL NUTRITION RECOMMENDATIONS: Glucerna 1.5 @35ml/hr x24 hrs + Prosource TID to provide 840ml, 1260 kcal, 69g pro + 33g pro, 638ml free H2O - Obtain GI access, start Glucerna 1.5 @15ml/hr w/ hemodynamic stability. - Advance as tolerated 10ml/hr q4-6 hrs to goal - Flush per MD. TF KCAL TOTAL (1260 KCAL) + KCAL FROM PROPOFOL (620 KCAL/DAY) TO MEET 100% EST KCAL NEEDS ADDITIONAL RECOMMENDATIONS: 1) Will adjust TF recs w/ decrease/ increase in propofol 2) Add Prosource TID to meet est protein needs 3) Monitor K, need for TF change 4) Follow up w/ lipid panel, LFT's 5) Weekly weights
[2019-02-09] MEDS ORDERED: Lidocaine HCl 2% Jelly 6ml Tube TOPIC SCH (14:16)
--- NOTE | 2019-02-09 14:19 | Pre-Procedure Note/Attestation ---
Pre-Procedure Note/Attestation Complete Prior to Procedure Planned Procedure: bilateral Procedure Narrative: BRONCHOSCOPY WITH BRONCHOALVEOLAR LAVAGE Indications for Procedure Pre-Operative Diagnosis: BILATEAL INFILTRATES Attestation I attest that I discussed the nature of the procedure; its benefits; risks and complications; and alternatives (and the risks and benefits of such alternatives ), prior to the procedure, with the patient (or the patient's legal technical account representative). I attest that, if there was a reasonable possibility of needing a blood transfusion, the patient (or the patient's legal technical account representative) was given the [facility] standardized written summary, pursuant to the Nicholas Daniela Blood Safety Act ([place] Health and Safety Code # 1645, as amended). I attest that I re-evaluated the patient just prior to the surgery and that there has been no change in the patient's H&P, except as documented below: Brett Meredith MD Feb 09, 2019 14:19
--- NOTE | 2019-02-09 14:28 | NUR ---
INFECTION CONTROLL DEPT, CLARITZA NOTIFIED POSS, TB ON HEPAFILTERROOM 246/A
--- NOTE | 2019-02-09 14:47 | Operative Note - PDOC ---
Operative Note Operative Note Date of Operation/Procedure: Feb 09, 2019 Chief Complaint: RESPIRATORY FAILURE Pre-op Diagnosis: BILATEAL INFILTRATES Procedure: FOB and BAL Post-op Diagnosis: SAME Post-op Diagnosis: same as pre-op Surgeon: Brett Meredith MD Anesthesia: moderate sedation Specimen: yes Complications: none Condition: stable Estimated Blood Loss: none Drains: none Implant(s) used?: No Description of Procedure DICT # [id number] Brett Meredith MD Feb 09, 2019 14:47
--- NOTE | 2019-02-09 14:53 | NUR ---
NURSE NOTES: Dr. Meredith completed Bronchoscopy at the bedside with RT and RN present, tolerated procedure with HR at 86 in sinus rhythm with Bp at 136/66, patient remains breathing at 24 with saturations of 95-96% with no distress noted, sputum sample sent to laboratory for analysis, patient remains on propofol with 40mcg/kg/min with RASS of -2.
--- NOTE | 2019-02-09 17:35 | NUR ---
NURSE NOTES: Dr. Meredith notified patient returned from CT scan with contrast and report is pending, Tolerated scan with no distress noted, remains on propofol at 40mcg/kg.min at 23.4ml/hr, he remained at RASS of -2, he is able to wake upon light pain placed on the sturnom and makes eyes contact with 5seconds, remains on restraints for safety, arms remains at 5/5 and able to reach towards Et-tube with dexterity of 3/3. skin remain intact, cool to the touch and peripheral pulses present.
--- NOTE | 2019-02-09 19:23 | NUR ---
NURSE NOTES: new order of Diflucan started at 1845 and running on Left forearm with 22g IV, blood return present with no swelling or oozing at insertion site, Remains on Propofol drip at 40mcg/kg/min running on left AC 20G IV, blood return present with infusion running. remains sedated at RASS of -2, he is able to be aroused with light pain,
--- NOTE | 2019-02-09 19:30 | NUR ---
NURSE NOTES: Received report from Salty ZARATE. patient in bed remained on Propofol 40mcg/kg/min to Right F/A #20 BP 118/54 HR 93 SR, Rass Score -2 Light sedation. Turned and repositioned Q2 hour. Oral care and suctioned pt. OGT intact no residual. HOB elevated. Bilateral soft wrist restraint checked patient with on and off episode of trying to pull out tubing reality orientation provide pt teaching provided not effective. Bed alarm on. Bed locked and in low position.Simon draining with dark scott urine. HOB elevated. Airborne precaution maintained and observed. Simon draining. Will continue to monitor plan of care.
--- NOTE | 2019-02-09 19:35 | NUR ---
HAND-OFF: Report given to TESSA Patino..
--- NOTE | 2019-02-09 20:08 | NUR ---
NURSE NOTES: Dr. Calabrese came and examined the patient. Patient awake,alert and requested to remove the ETT, Dr. Calabrese extubated the pt RT at bedside. Patient placed on 2L N/C satting 95%. Patient able to verbalize needs known to Staff. denies any pain or discomfort at this time. No s/s of acute distress noted. Temp 99.[address] Calabrese spoke with the pt family. Call light within easy reach. Bed alarm on. bed locked and in low position. Will continue plan of care. Addendum: 02/09/19 at 2015 by SAJI MENDOZA RN wrong pt
--- NOTE | 2019-02-09 20:44 | NUR ---
NURSE NOTES: Dr. Meredith called with New OGT feeding diet Glucerna 1.5 @ 30cc/hr flush 100Qshift noted and carried out. Addendum: 02/10/19 at 0309 by SAJI MENDOZA RN goal 35cc/hr
[2019-02-09] MEDS: Enoxaparin 40mg Inj SUBQ SCH (21:00)
--- NOTE | 2019-02-09 21:30 | NUR ---
NURSE NOTES: patient in bed remained on Propofol 40mcg/kg/min to Right F/A #20 Rass Score -2 Light sedation. Turned and repositioned Q2 hour. Frequent visual checks continued.
[2019-02-09] MEDS: Atorvastatin 20mg tab ORAL SCH (21:55)
[2019-02-09] MEDS: Miralax 17gm pkt ORAL SCH (21:55)
[2019-02-09] MEDS: Bactrim-DS 1 tab ORAL SCH (21:56)
--- NOTE | 2019-02-09 22:00 | NUR ---
NURSE NOTES: Pt remain on Diprivan 40mcg/kg/min BP 136/58 HR 89. oral care and suctioned as needed. Frequent visual checks continued. Turned and repositioned every 2hour. will continue to monitor pt.
[2019-02-09] MEDS: Morphine Sulfate 4mg/ml Inj (IV USE ONLY) IVP PRN (23:02)
--- NOTE | 2019-02-09 23:07 | NUR ---
NURSE NOTES: Patient awake, restlessness, moaning and facial grimaces repositioned in bed and talk therapy provided not effective. Pt remain on Diprivan 40mcg/kg/min. Morphine IVP given for pain will continue to monitor pt.
[2019-02-10] VITALS (39 sets, daily range): BP systolic 86–190; BP diastolic 50–81
--- NOTE | 2019-02-10 00:20 | Infectious Diseases Prog Note ---
Assessment/Plan Assessment/Plan A) pneumonia - ? etiology, ? 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 fungal pmh noted allergies - nkda P) zosyn, vancomycin and azithromycin, bactrim, diflucan check cultures, labs and serology, f/u on bronchoscopy isolation pending AFB's monitor labs and chest x-ray d/w Dr. Meredith d/w RN and patient will f/u Subjective Constitutional: Reports: other - on vent ; Denies: fever HEENT: Reports: congestion Respiratory: Reports: shortness of breath Cardiovascular: Reports: other - no pressors Gastrointestinal/Abdominal: Denies: nausea, vomiting, diarrhea Allergies: Coded Allergies: No Known Allergies (Unverified , 02/05/13) Objective Vital Signs Last 24 Hour Vital Signs Date Time Temp Pulse Resp B/P (MAP) Pulse Ox O2 Delivery O2 Flow Rate FiO2 02/09/19 23:40 94 24 100 Mechanical Ventilator 50 02/09/19 23:32 98.1 02/09/19 23:30 87 24 95 Mechanical Ventilator 50 02/09/19 23:28 87 24 50 70 02/09/19 23:00 89 20 115/55 (75) 94 02/09/19 23:00 20 115/55 Endotracheal Tube 50 02/09/19 22:00 104 24 136/58 (84) 94 02/09/19 22:00 27 136/56 Endotracheal Tube 50 02/09/19 21:56 111 128/75 02/09/19 21:00 20 147/69 Endotracheal Tube 50 02/09/19 21:00 108 24 147/69 (95) 100 02/09/19 20:54 24 146/65 Endotracheal Tube 100.0 50 02/09/19 20:53 30 177/80 Endotracheal Tube 50 02/09/19 20:37 105 24 50 70 02/09/19 20:00 98.5 99 24 135/60 (85) 100 02/09/19 20:00 24 135/60 Endotracheal Tube 70 02/09/19 20:00 50 02/09/19 19:41 95 24 100 Mechanical Ventilator 50 02/09/19 19:29 92 24 50 70 02/09/19 19:29 92 24 100 Mechanical Ventilator 50 02/09/19 19:00 24 126/59 Endotracheal Tube 70 02/09/19 19:00 92 24 126/59 (81) 100 02/09/19 18:00 99 27 122/66 (84) 100 02/09/19 18:00 29 122/66 Mechanical Ventilator 70 02/09/19 17:31 105 24 70 02/09/19 17:00 96 24 118/57 (77) 100 02/09/19 17:00 29 61/66 Mechanical Ventilator 70 02/09/19 16:44 24 114/54 Mechanical Ventilator 70 02/09/19 16:30 89 24 114/54 (74) 100 02/09/19 16:00 87 02/09/19 16:00 Mechanical Ventilator Mechanical Ventilator 02/09/19 16:00 70 02/09/19 16:00 24 112/52 Mechanical Ventilator 70 02/09/19 16:00 98.1 89 24 112/52 (72) 100 02/09/19 15:40 114 24 99 Mechanical Ventilator 100 02/09/19 15:30 83 24 111/56 (74) 100 02/09/19 15:22 82 24 70 02/09/19 15:22 84 24 100 Mechanical Ventilator 100 02/09/19 15:00 24 104/50 Non-Rebreather 70 02/09/19 15:00 84 24 104/50 (68) 100 02/09/19 14:30 84 24 102/55 (71) 96 02/09/19 14:00 77 24 102/55 (71) 100 02/09/19 14:00 24 102/55 Mechanical Ventilator 70 02/09/19 13:30 75 24 104/56 (72) 100 02/09/19 13:06 73 24 70 02/09/19 13:00 74 22 103/54 (70) 100 02/09/19 13:00 24 103/54 Mechanical Ventilator 70 02/09/19 12:30 21 103/54 Mechanical Ventilator 70 02/09/19 12:30 73 24 103/52 (69) 100 02/09/19 12:00 70 02/09/19 12:00 Mechanical Ventilator Mechanical Ventilator 02/09/19 12:00 97.7 74 24 103/54 (70) 100 02/09/19 12:00 79 02/09/19 12:00 23 103/54 Mechanical Ventilator 80 02/09/19 11:45 70 02/09/19 11:45 70 02/09/19 11:30 81 16 114/59 (77) 100 02/09/19 11:05 89 17 100 02/09/19 11:00 17 125/62 Mechanical Ventilator 80 02/09/19 11:00 94 18 125/62 (83) 100 02/09/19 10:30 98 17 119/68 (85) 100 02/09/19 10:25 132/66 02/09/19 10:24 97 132/66 02/09/19 10:24 132/66 02/09/19 10:00 100 17 122/66 (84) 100 02/09/19 10:00 17 122/66 Mechanical Ventilator 80 02/09/19 09:30 103 18 117/64 (81) 100 02/09/19 09:08 104 18 100 02/09/19 09:00 105 18 132/65 (87) 100 02/09/19 09:00 17 132/65 Mechanical Ventilator 90 02/09/19 08:30 111 21 145/70 (95) 100 02/09/19 08:27 24 158/82 Mechanical Ventilator 90 02/09/19 08:26 25 158/82 Mechanical Ventilator 90 02/09/19 08:15 118 24 158/82 (107) 100 02/09/19 08:15 24 158/92 Mechanical Ventilator 90 02/09/19 08:00 122 02/09/19 08:00 90 02/09/19 08:00 30 191/86 Mechanical Ventilator 90 02/09/19 08:00 97.7 123 30 191/86 (121) 100 02/09/19 08:00 Mechanical Ventilator Mechanical Ventilator 02/09/19 07:45 109 25 140/79 (99) 100 02/09/19 07:42 110 19 99 Mechanical Ventilator 100 02/09/19 07:35 109 29 99 Mechanical Ventilator 100 02/09/19 07:30 93 18 100 02/09/19 07:30 93 23 119/65 (83) 100 02/09/19 07:00 98.2 94 23 126/63 (84) 100 02/09/19 07:00 21 119/56 Endotracheal Tube 100 02/09/19 06:00 97 23 121/62 (81) 100 6/21/19 06:00 23 121/62 Endotracheal Tube 100 02/09/19 05:18 104 22 100 02/09/19 05:00 111 21 119/65 (83) 100 02/09/19 05:00 22 114/62 Endotracheal Tube 100 02/09/19 04:01 21 127/63 Endotracheal Tube 100.0 02/09/19 04:01 98.4 109 21 127/63 (84) 100 02/09/19 04:00 Bi-pap 02/09/19 04:00 111 02/09/19 04:00 100 02/09/19 03:46 108 21 123/60 (81) 100 02/09/19 03:46 20 123/60 Endotracheal Tube 100 02/09/19 03:31 110 21 115/61 (79) 100 02/09/19 03:31 21 120/63 Endotracheal Tube 100 02/09/19 03:28 112 25 100 02/09/19 03:16 27 123/63 Endotracheal Tube 100 02/09/19 03:16 112 24 120/63 (82) 99 02/09/19 03:01 117 28 123/63 (83) 98 02/09/19 03:01 20 123/63 Endotracheal Tube 100 02/09/19 02:46 117 26 140/84 (102) 98 02/09/19 02:46 22 115/96 Mechanical Ventilator 5.0 100 02/09/19 02:22 125 22 100 Mechanical Ventilator 100 02/09/19 02:11 123 22 100 Mechanical Ventilator 100 02/09/19 02:05 129 22 100 02/09/19 02:00 123 28 169/85 (113) 92 02/09/19 02:00 100 02/09/19 01:22 Bi-Pap 100 02/09/19 01:22 Bi-Pap 100 02/09/19 01:22 100 02/09/19 01:00 125 32 122/105 (111) 79 02/09/19 00:52 125 38 95 Facial 55 Height (Feet): 6 Height (Inches): 0.00 Weight (Pounds): 215 General Appearance: other - on vent, sedated HEENT: normocephalic, atraumatic, anicteric Respiratory/Chest: crackles/rales, rhonchi - bilaterally Cardiovascular: normal rate, regular rhythm Abdomen: normal bowel sounds, soft, non tender, no organomegaly Microbiology Date/Time Source Procedure Growth Status 02/09/19 14:45 Sputum Expectorated Received 02/08/19 22:30 Sputum Induced Gram Stain - Final Resulted 02/08/19 22:30 Sputum Induced Sputum Culture Pending Resulted Laboratory Tests Test 02/09/19 01:05 02/09/19 02:53 02/09/19 05:00 02/09/19 07:45 Arterial Blood pH 7.181 (7.350-7.450) 7.236 (7.350-7.450) Arterial Blood Partial Pressure CO2 55.9 mmHg (35.0-45.0) *H 42.6 mmHg (35.0-45.0) Arterial Blood Partial Pressure O2 48.3 mmHg (75.0-100.0) 86.3 mmHg (75.0-100.0) Arterial Blood HCO3 20.4 mmol/L (22.0-26.0) L 17.7 mmol/L (22.0-26.0) *L Arterial Blood Oxygen Saturation 73.3 % (95-100) *L 94.7 % (95-100) L Arterial Blood Base Excess -8.1 (-2-2) L -9.3 (-2-2) *L Benny Test Positive Positive White Blood Count 8.2 K/UL (4.8-10.8) Red Blood Count 3.09 M/UL (4.70-6.10) L Hemoglobin 8.6 G/DL (14.2-18.0) L Hematocrit 26.7 % (42.0-52.0) L Mean Corpuscular Volume 86 FL (80-99) Mean Corpuscular Hemoglobin 27.9 PG (27.0-31.0) Mean Corpuscular Hemoglobin Concent 32.4 G/DL (32.0-36.0) Red Cell Distribution Width 17.8 % (11.6-14.8) H Platelet Count 160 K/UL (150-450) Mean Platelet Volume 5.2 FL (6.5-10.1) L Neutrophils (%) (Auto) 81.1 % (45.0-75.0) H Lymphocytes (%) (Auto) 4.2 % (20.0-45.0) L Monocytes (%) (Auto) 14.0 % (1.0-10.0) H Eosinophils (%) (Auto) 0.0 % (0.0-3.0) Basophils (%) (Auto) 0.6 % (0.0-2.0) Sodium Level 134 MMOL/L (136-145) L Potassium Level 5.2 MMOL/L (3.5-5.1) H Chloride Level 102 MMOL/L (98-107) Carbon Dioxide Level 19 MMOL/L (21-32) L Anion Gap 13 mmol/L (5-15) Blood Urea Nitrogen 27 mg/dL (7-18) H Creatinine 1.5 MG/DL (0.55-1.30) H Estimat Glomerular Filtration Rate 47.9 mL/min (>60) Glucose Level 327 MG/DL (74-106) #H Calcium Level 8.0 MG/DL (8.5-10.1) L Total Bilirubin 0.5 MG/DL (0.2-1.0) Aspartate Amino Transf (AST/SGOT) 45 U/L (15-37) H Alanine Aminotransferase (ALT/SGPT) 44 U/L (12-78) Alkaline Phosphatase 124 U/L (46-116) H Total Protein 5.8 G/DL (6.4-8.2) L Albumin 2.2 G/DL (3.4-5.0) L Globulin 3.6 g/dL Albumin/Globulin Ratio 0.6 (1.0-2.7) L Triglycerides Level 129 MG/DL (30-150) TB Test (T-Spot) Pending TB Test Nil Control (T-Spot) Pending TB Test Panel A (T-Spot) Pending TB Test Panel B (T-Spot) Pending TB Test Positive Control (T-Spot) Pending Test 02/09/19 13:15 Arterial Blood pH 7.438 (7.350-7.450) Arterial Blood Partial Pressure CO2 31.0 mmHg (35.0-45.0) L Arterial Blood Partial Pressure O2 164.9 mmHg (75.0-100.0) H Arterial Blood HCO3 20.5 mmol/L (22.0-26.0) L Arterial Blood Oxygen Saturation 98.8 % (95-100) Arterial Blood Base Excess -3.2 (-2-2) L Benny Test Positive Current Medications Medications (Trade) Dose Ordered Sig/Marquis Route PRN Reason Start Time Stop Time Status Last Admin Dose Admin Acetaminophen (Tylenol) 650 mg Q4H PRN ORAL Mild Pain (Pain Scale 1-3) 02/07/19 11:15 03/08/19 17:29 02/07/19 23:01 Acetaminophen/ Butalbital/ Caffeine (Fioricet) 1 tab Q8H PRN ORAL For Headache 02/08/19 17:15 03/10/19 17:14 Albuterol/ Ipratropium (Albuterol/ Ipratropium) 3 ml Q4HRT HHN 02/09/19 15:00 02/14/19 14:59 02/09/19 23:31 Alprazolam (Xanax) 0.5 mg Q6H PRN ORAL For Anxiety 02/08/19 20:15 02/15/19 20:14 02/08/19 20:51 Aspirin (Ecotrin) 81 mg DAILY ORAL 02/08/19 09:00 03/09/19 08:59 02/09/19 10:26 Atorvastatin Calcium (Lipitor) 40 mg QHS ORAL 02/08/19 21:00 03/10/19 20:59 02/09/19 21:55 Azithromycin 250 mg/Sodium Chloride 275 ml @ 275 mls/hr DAILY IV 02/08/19 09:00 02/14/19 08:59 02/09/19 10:21 Bisacodyl (Dulcolax) 5 mg DAILYPRN PRN ORAL Constipation 02/08/19 17:15 03/10/19 17:14 Cetirizine HCl (ZyrTEC) 10 mg DAILYPRN PRN ORAL Itching 02/07/19 11:30 03/09/19 11:29 Dextrose (Dextrose 50%) 25 ml Q30M PRN IV Hypoglycemia 02/07/19 11:15 03/08/19 17:29 Dextrose (Dextrose 50%) 50 ml Q30M PRN IV Hypoglycemia 02/07/19 11:15 03/08/19 17:29 Docusate Sodium (Colace) 100 mg BID GT 02/10/19 09:00 03/12/19 08:59 Duloxetine HCl (Cymbalta) 90 mg DAILY ORAL 02/08/19 09:00 03/09/19 08:59 02/09/19 10:26 Enoxaparin Sodium (Lovenox) 40 mg Q24H SUBQ 02/07/19 21:00 03/08/19 20:59 02/08/19 20:54 EZETIMIBE (Zetia) 10 mg BEDTIME ORAL 02/07/19 21:00 03/08/19 20:59 02/09/19 21:56 Famotidine (Pepcid) 20 mg BID ORAL 02/07/19 18:00 03/08/19 19:59 02/09/19 17:55 Ferrous Sulfate (Feosol) 325 mg THREE TIMES A DAY ORAL 02/07/19 13:00 03/09/19 08:59 02/09/19 17:55 Fluconazole/ Sodium Chloride 100 ml @ 100 mls/hr Q24H IV 02/09/19 18:00 02/16/19 17:59 02/09/19 18:58 Folic Acid (Folate) 1 mg BID ORAL 02/07/19 18:00 03/09/19 08:59 02/09/19 17:56 Guaifenesin (Mucinex ER) 600 mg TWICE A DAY ORAL 02/07/19 18:00 03/09/19 08:59 02/09/19 17:55 Hydralazine HCl (Apresoline) 25 mg Q6H PRN ORAL SBP > 160mmHg 02/07/19 11:15 03/08/19 11:14 02/08/19 15:32 Insulin Aspart (NovoLOG) BEFORE MEALS AND HS SUBQ 02/07/19 12:30 03/08/19 12:29 02/09/19 21:03 Isosorbide Mononitrate (Imdur) 30 mg DAILY ORAL 02/08/19 09:00 03/09/19 08:59 02/09/19 10:25 Losartan Potassium (Cozaar) 100 mg DAILY ORAL 02/08/19 09:00 03/09/19 08:59 02/09/19 10:24 Magnesium Hydroxide (Mom) 30 ml DAILYPRN PRN ORAL Constipation 02/08/19 15:30 03/10/19 15:29 02/08/19 16:08 Metoprolol Tartrate (Lopressor) 100 mg Q12HR ORAL 02/07/19 21:00 03/08/19 20:59 02/09/19 21:56 Morphine Sulfate (Morphine Sulfate) 2 mg Q2H PRN IVP Moderate Pain (Pain Scale 4-6) 02/07/19 16:15 02/14/19 16:14 02/07/19 21:16 Morphine Sulfate (Morphine Sulfate) 4 mg Q2H PRN IVP Severe Pain (Pain Scale 7-10) 02/07/19 16:15 02/14/19 16:14 02/09/19 23:02 Nateglinide (Starlix) 120 mg THREE TIMES A DAY ORAL 02/07/19 13:00 03/09/19 08:59 02/09/19 17:56 Nitroglycerin (Ntg) 0.4 mg Q5M PRN SL Prn Chest Pain 02/07/19 11:00 03/08/19 17:29 02/08/19 07:42 Ondansetron HCl (Zofran) 4 mg Q6H PRN IVP Nausea & Vomiting 02/07/19 11:15 03/08/19 11:14 02/09/19 00:58 Patient Own Medication (Patient's Own Med) 1 ea BID ORAL 02/07/19 18:00 03/09/19 17:59 02/09/19 17:56 Patient Own Medication (Patient's Own Med) 1 ea DAILY ORAL 02/08/19 09:00 03/10/19 08:59 02/09/19 10:23 Patient Own Medication (Patient's Own Med) 2 ea DAILY ORAL 02/08/19 09:00 03/10/19 08:59 02/09/19 10:23 Piperacillin Sod/ Tazobactam Sod 3.375 gm/Sodium Chloride 110 ml @ 27.5 mls/hr EVERY 8 HOURS IVPB 02/07/19 14:00 02/13/19 21:59 02/09/19 21:56 Polyethylene Glycol (Miralax) 17 gm BEDTIME ORAL 02/08/19 21:00 03/10/19 20:59 02/09/19 21:55 Propofol 100 ml @ 0 mls/hr Q24H IV 02/09/19 07:47 02/11/19 07:46 02/09/19 20:54 Sitagliptin Phosphate (Januvia) 100 mg DAILY ORAL 02/08/19 09:00 03/09/19 08:59 02/09/19 10:25 Sodium Chloride 1,000 ml @ 100 mls/hr Q10H IVLG 02/07/19 11:00 03/08/19 18:17 02/09/19 23:05 Trimethoprim/ Sulfamethoxazole (Bactrim-DS) 1 tab Q24H ORAL 02/08/19 21:00 02/15/19 20:59 02/09/19 21:56 Vancomycin HCl (Vanco rx to dose) 1 ea DAILY PRN MISC Per rx protocol 02/07/19 11:15 03/09/19 11:14 Vancomycin HCl 1 gm/Dextrose 275 ml @ 183.708 mls/hr Q12HR IVPB 02/08/19 21:00 02/13/19 20:59 02/09/19 20:55 Vitamin D (Vitamin D) 400 intlu DAILY ORAL 02/08/19 09:00 03/09/19 08:59 02/09/19 10:24 Russ Tony MD Feb 10, 2019 00:20
--- NOTE | 2019-02-10 00:36 | NUR ---
NURSE NOTES: Seen and examined by Dr. Duval noted and carried out.
--- NOTE | 2019-02-10 02:30 | NUR ---
NURSE NOTES: patient in bed remained on Propofol 40mcg/kg/min to Right F/A #20 Rass Score -2 Light sedation. With episode of pulling out tubing, bilateral soft wrist restraint checked.Turned and repositioned Q2 hour. Frequent visual checks continued. Will continue plan of care.
[2019-02-10] MEDS: Albuterol/Ipratropium 3ml neb HHN SCH ×7 (03:46→22:42)
--- NOTE | 2019-02-10 04:30 | NUR ---
NURSE NOTES: Bed bath given. No s/s of acute distress noted. turned and repositioned.
[2019-02-10] MEDS: Piperacillin/Tazobactam 3.375 GM in NS 110 ML IVPB SCH ×3 (05:33→21:24)
[2019-02-10] MEDS: NovoLOG Insulin Flexpen SUBQ SCH ×5 (05:35→20:46)
[2019-02-10 06:00] LABS: HEMATOCRIT 23.5 % (42.0-52.0); HEMOGLOBIN 7.6 G/DL (14.2-18.0); MEAN CORPUSCULAR VOLUME 85 FL (80-99); PLATELET COUNT 147 K/UL (150-450); RED BLOOD COUNT 2.75 M/UL (4.70-6.10); RED CELL DISTRIBUTION WIDTH 17.9 % (11.6-14.8); WHITE BLOOD COUNT 6.1 K/UL (4.8-10.8)
[2019-02-10 06:17] LABS: ALANINE AMINOTRANSFERASE 44 U/L (12-78); ALBUMIN 1.8 G/DL (3.4-5.0); ALBUMIN/GLOBULIN RATIO 0.5 (1.0-2.7); ALKALINE PHOSPHATASE 101 U/L (46-116); ANION GAP 11 mmol/L (5-15); ASPARTATE AMINO TRANSFERASE 49 U/L (15-37); BILIRUBIN,TOTAL 0.6 MG/DL (0.2-1.0); BLOOD UREA NITROGEN 30 mg/dL (7-18); CALCIUM 7.6 MG/DL (8.5-10.1); CARBON DIOXIDE 23 MMOL/L (21-32); CHLORIDE 107 MMOL/L (98-107); CREATININE 1.9 MG/DL (0.55-1.30); SODIUM 141 MMOL/L (136-145)
--- NOTE | 2019-02-10 07:28 | NUR ---
RESPIRATORY NOTE: received pt orally intubated with ETT 7.5 placed 25cm at the lip. ETT secured via anchor fast with no redness around facial area. Breathing tx not given due to agitation, increased RR and elevated HR. RN notified. pt on current vent settings with vent alarms on and audible. ambu bag at bedside as well. will cont to monitor.
--- NOTE | 2019-02-10 07:30 | NUR ---
NURSE NOTES: Patient received from TESSA Patino at the bedside. Patient noted to be breathing with agonal respirations and RR of 30-33 and saturations at 75-85% on the monitor. ventilator setting are AC 24, TV: 550, FIO2: 100% and peep of 5. he is diaphoretic over entire body and is restless and agitated, patient FLACC is 4/10 and is difficult to comfort. linen are wet with patient gown is damp and cool. while suctioning ET-tube pinkish and red sputum noted with in the Et-tube and blue tubbing, secretions suctioned and cleared tube feeding placed on hold with residual noted to be at 130ml taken out through OG-tube. small clots mixed with tube feeding are present. he remains retrained with soft bilateral wrist restraints, skin is intact with hands pale and cool to the touch, pulses are present when radial artery palpated. propofol noted to be at 40mcg/kg/min running on right forearm.
--- NOTE | 2019-02-10 07:30 | NUR ---
NURSE NOTES: Left message to Dr. Lutz regarding the hgb of 7.6 endorsed to follow up.
--- NOTE | 2019-02-10 07:49 | NUR ---
HAND-OFF: Report given to Salty ZARATE. Dr Francois made aware of pt troponin result of 7.179 with new order to to ECG and call MD for shani result. Endorsed to Salty ZARATE.
--- NOTE | 2019-02-10 08:15 | NUR ---
NURSE NOTES: ECG done ST possible anterior infarct age undetermined 133bpm. no new order at this time. Salty ZARATE aware.
--- NOTE | 2019-02-10 08:20 | NUR ---
DR. Francois made aware of ECG result no new order at this time.
--- NOTE | 2019-02-10 08:30 | NUR ---
NURSE NOTES: Dr Meerdith made aware of pt desat with fi02 100% peep of 5 MD with new order stat ABG and increase peep to 10 noted and carried out.
[2019-02-10] MEDS: Aspirin EC 81mg tab ORAL SCH (09:00)
--- NOTE | 2019-02-10 09:20 | NUR ---
NURSE NOTES: ABG specimen obtained by RT and results posted, Dr. Meredith called to inform patient is restless, agitated, cool and clammy and diaphoretic over entire body. Propofol titrated to 45mcg/kg/min at rate of 26.377ml/hr to reach a RASS of -2. patient is tachycardic with HR at 30-36 bpm and saturating at 65-78% on the monitor. patient remains restrained using soft wrist restraints.
[2019-02-10] MEDS ORDERED: Sodium Bicarbonate 50ml Carp IV SCH (09:44)
--- NOTE | 2019-02-10 09:45 | Consultation ---
DATE OF CONSULTATION: 02/10/2019 NEPHROLOGY CONSULTATION CONSULTING PHYSICIAN: Carlito Nichols M.D. REFERRING PHYSICIAN: Mj Lutz M.D. REASON FOR CONSULTATION: Diabetes management. HISTORY OF PRESENT ILLNESS: The patient is a 58-year-old male with history of HIV and diabetes, who presented to the hospital with a [id number] AK, pneumonia, and respiratory failure, currently intubated in the ICU, not able to provide any history. Glucose values are running over 205, 300. Currently, the patient is on Januvia, Starlix, and sliding scale Humalog. PAST MEDICAL HISTORY: 1. HIV. 2. Diabetes. 3. Lipodystrophy. PAST SURGICAL HISTORY: Chin surgery and cheek surgery. MEDICATIONS: Reviewed and reconciled. ALLERGIES TO MEDICATION: None. FAMILY HISTORY: Noncontributory. SOCIAL HISTORY: No smoking, alcohol, or drug use. LABORATORY DATA: WBC 6, hemoglobin 7.6, hematocrit 23.5, and platelets of 147,000. Sodium 141, potassium 4, chloride 107, bicarbonate 22, BUN 39, and creatinine 1.5. Hemoglobin A1c of 6.7. PHYSICAL EXAMINATION: GENERAL: The patient is intubated. VITAL SIGNS: Blood pressure 134/54, pulse 78, temperature 98.1 degrees, and respiratory rate of 24. HEENT: Orally intubated. NECK: No JVD. HEART: Tachy. LUNGS: Crackles, rhonchi, and scattered. ABDOMEN: Positive bowel sounds. EXTREMITIES: Positive for edema. DIAGNOSES: 1. Respiratory failure. 2. Multilobar pneumonia. 3. Human immunodeficiency virus. 4. Acute kidney injury. 5. Anemia. 6. [id number] myocardial infarction. 7. Diabetes, out of control. PLAN: 1. Discontinue Starlix. 2. Continue Januvia. 3. Change NovoLog sliding scale before meals and at bedtime to every 4 hours. 4. Start Levemir 80 units b.i.d. 5. Further adjustment according to blood glucose values. 6. I will follow the patient closely. Thank you, Dr. Lutz, for the courtesy of this consultation. Carlito Nichols M.D. DR: SABRINA JOB#: [id number] CC: GEOFF
--- NOTE | 2019-02-10 09:56 | NUR ---
NURSE NOTES: Dr. Lutz called the unit - updated with patient's status- made aware of elevated troponin and current ABG results
[2019-02-10] MEDS: Azithromycin 250 MG in NS 275 ML IV SCH (10:05)
[2019-02-10] MEDS: TENOFOVIR DISOPROXIL FUMARATE 300 MG ORAL SCH (10:06)
[2019-02-10] MEDS: ETRAVIRINE 200 MG ORAL SCH (10:06)
[2019-02-10] MEDS: RALTEGRAVIR 400 MG ORAL SCH ×2 (10:06→17:40)
[2019-02-10] MEDS: Vitamin D 400 INTLU TAB ORAL SCH (10:07)
[2019-02-10] MEDS: guaiFENesin ER 600mg tab ORAL SCH ×2 (10:08→17:41)
[2019-02-10] MEDS: DULoxetine 30mg cap ORAL SCH (10:08)
[2019-02-10] MEDS: Imdur 30mg tab ORAL SCH (10:08)
[2019-02-10] MEDS: Bactrim-DS 1 tab ORAL SCH ×2 (10:09→17:41)
[2019-02-10] MEDS: Losartan 50mg tab ORAL SCH (10:10)
[2019-02-10] MEDS: Docusate 100mg/10ml Liq GT SCH ×2 (10:11→17:41)
[2019-02-10] MEDS: Levemir Flexpen SUBQ SCH ×2 (10:37→17:44)
--- NOTE | 2019-02-10 10:45 | NUR ---
NURSE NOTES: Dr. Lutz updated at the bedside of patient respiratory distress this morning, stated he has been notified by Dr. Meredith of situation, notified patient Aspirin has not been given a this morning due to HBG consistently trending down over the last 4 days. no verbal orders given at this time.
[2019-02-10] MEDS ORDERED: Vancomycin 1gm/D5W 275ml IVPB SCH ×4 (11:00→23:00)
--- NOTE | 2019-02-10 11:00 | NUR ---
NURSE NOTES: Propofol titrated to 40mcg/kg/min at rate of 23.446ml/hr, patient BP is 89/46 with RR of 30 and HR at 87 with saturations at 100%. patient remains calm and sedated, he is able to open eyes with light pinch on the right ac regions. patient also has a gag reflex while suctioning.
--- NOTE | 2019-02-10 12:01 | Cardiac Electrophysiology PN ---
Assessment/Plan Assessment/Plan 1. Non-ST elevation myocardial infarction with peak troponin of more than 10. Down to 2 and back up to 7. EKG shows nonspecific ST-T wave abnormalities. Would need cardiac catheterization for further evaluation after stabilized. Continue aspirin, Lipitor, Imdur and metoprolol 100 mg b.i.d. 2. Hypertension. Continue metoprolol 100 mg b.i.d., losartan 100 mg daily, and Imdur 30 mg daily and p.r.n. hydralazine. 3. Respiratory failure due to Multilobar Pneumonia. In respiratory isolation on Abx per Dr. Mitchell 4. Hyperlipidemia. On Lipitor. 5. Human immunodeficiency virus. On anti-retroviral therapy with undetectable viral load. DW RN Subjective Subjective In isolation in ICU on the vent. Objective Last 24 Hour Vital Signs Date Time Temp Pulse Resp B/P (MAP) Pulse Ox O2 Delivery O2 Flow Rate FiO2 02/10/19 10:48 95 30 100 02/10/19 10:46 93 30 90 Mechanical Ventilator 100 02/10/19 10:45 90 30 90 Mechanical Ventilator 100 02/10/19 10:10 146/65 02/10/19 10:08 129 146/65 02/10/19 10:08 146/65 02/10/19 09:58 100 02/10/19 08:57 32 155/71 Mechanical Ventilator 100 02/10/19 08:46 131 30 50 02/10/19 07:28 Mechanical Ventilator 50 02/10/19 07:27 Mechanical Ventilator 50 02/10/19 07:24 133 38 50 02/10/19 07:00 111 31 133/54 (80) 93 02/10/19 07:00 25 136/62 Endotracheal Tube 50 02/10/19 06:00 20 114/50 Endotracheal Tube 50 02/10/19 06:00 87 24 114/50 (71) 100 02/10/19 05:29 90 24 50 70 02/10/19 05:16 24 122/57 Endotracheal Tube 100.0 50 02/10/19 05:15 24 123/57 Endotracheal Tube 50 02/10/19 05:00 98.1 87 24 123/57 (79) 100 02/10/19 05:00 25 123/57 Endotracheal Tube 50 02/10/19 04:00 50 02/10/19 04:00 98.2 87 24 122/57 (78) 100 02/10/19 04:00 81 02/10/19 04:00 24 122/57 Endotracheal Tube 50 02/10/19 04:00 Mechanical Ventilator Mechanical Ventilator 02/10/19 03:43 93 24 98 Mechanical Ventilator 50 02/10/19 03:29 93 24 50 70 02/10/19 03:29 93 24 95 Mechanical Ventilator 50 02/10/19 03:00 92 20 120/57 (78) 97 02/10/19 03:00 24 119/55 Endotracheal Tube 50 02/10/19 02:00 24 119/56 Endotracheal Tube 50 02/10/19 02:00 91 20 119/56 (77) 97 02/10/19 01:20 88 24 50 70 02/10/19 01:06 22 114/54 Endotracheal Tube 100.0 50 02/10/19 01:05 24 113/55 Endotracheal Tube 50 02/10/19 01:00 90 20 113/55 (74) 97 02/10/19 01:00 22 114/54 Endotracheal Tube 50 02/10/19 00:00 88 02/10/19 00:00 50 02/10/19 00:00 24 110/52 Endotracheal Tube 50 02/10/19 00:00 Mechanical Ventilator Mechanical Ventilator 02/10/19 00:00 98.5 87 24 110/52 (71) 100 02/09/19 23:40 94 24 100 Mechanical Ventilator 50 02/09/19 23:32 98.1 02/09/19 23:30 87 24 95 Mechanical Ventilator 50 02/09/19 23:28 87 24 50 70 02/09/19 23:00 89 20 115/55 (75) 94 02/09/19 23:00 20 115/55 Endotracheal Tube 50 02/09/19 22:00 104 24 136/58 (84) 94 02/09/19 22:00 27 136/56 Endotracheal Tube 50 02/09/19 21:56 111 128/75 02/09/19 21:00 20 147/69 Endotracheal Tube 50 02/09/19 21:00 108 24 147/69 (95) 100 02/09/19 20:54 24 146/65 Endotracheal Tube 100.0 50 02/09/19 20:53 30 177/80 Endotracheal Tube 50 02/09/19 20:37 105 24 50 70 02/09/19 20:00 Mechanical Ventilator Mechanical Ventilator 02/09/19 20:00 98.5 99 24 135/60 (85) 100 02/09/19 20:00 24 135/60 Endotracheal Tube 70 02/09/19 20:00 50 02/09/19 20:00 93 02/09/19 19:41 95 24 100 Mechanical Ventilator 50 02/09/19 19:29 92 24 50 70 02/09/19 19:29 92 24 100 Mechanical Ventilator 50 02/09/19 19:00 24 126/59 Endotracheal Tube 70 02/09/19 19:00 92 24 126/59 (81) 100 02/09/19 18:00 99 27 122/66 (84) 100 02/09/19 18:00 29 122/66 Mechanical Ventilator 70 02/09/19 17:31 105 24 70 02/09/19 17:00 96 24 118/57 (77) 100 02/09/19 17:00 29 61/66 Mechanical Ventilator 70 02/09/19 16:44 24 114/54 Mechanical Ventilator 70 02/09/19 16:30 89 24 114/54 (74) 100 02/09/19 16:00 87 02/09/19 16:00 Mechanical Ventilator Mechanical Ventilator 02/09/19 16:00 70 02/09/19 16:00 24 112/52 Mechanical Ventilator 70 02/09/19 16:00 98.1 89 24 112/52 (72) 100 02/09/19 15:40 114 24 99 Mechanical Ventilator 100 02/09/19 15:30 83 24 111/56 (74) 100 02/09/19 15:22 82 24 70 02/09/19 15:22 84 24 100 Mechanical Ventilator 100 02/09/19 15:00 24 104/50 Non-Rebreather 70 02/09/19 15:00 84 24 104/50 (68) 100 02/09/19 14:30 84 24 102/55 (71) 96 02/09/19 14:00 77 24 102/55 (71) 100 02/09/19 14:00 24 102/55 Mechanical Ventilator 70 02/09/19 13:30 75 24 104/56 (72) 100 02/09/19 13:06 73 24 70 02/09/19 13:00 74 22 103/54 (70) 100 6/21/19 13:00 24 103/54 Mechanical Ventilator 70 02/09/19 12:30 21 103/54 Mechanical Ventilator 70 02/09/19 12:30 73 24 103/52 (69) 100 02/09/19 12:00 70 02/09/19 12:00 Mechanical Ventilator Mechanical Ventilator 02/09/19 12:00 97.7 74 24 103/54 (70) 100 02/09/19 12:00 79 02/09/19 12:00 23 103/54 Mechanical Ventilator 80 Intake and Output 02/09/19 02/10/19 19:00 07:00 Intake Total 2614.255 ml 2273.102 ml Output Total 595 ml 505 ml Balance 2019.255 ml 1768.102 ml Free Water 200 ml IV Total 2169.255 ml 1898.102 ml Tube Feeding 175 ml Other 445 ml Output Urine Total 595 ml 505 ml Laboratory Tests Test 02/09/19 13:15 02/10/19 04:49 02/10/19 08:00 02/10/19 08:40 Arterial Blood pH 7.438 (7.350-7.450) 7.106 (7.350-7.450) Arterial Blood Partial Pressure CO2 31.0 mmHg (35.0-45.0) L 59.3 mmHg (35.0-45.0) *H Arterial Blood Partial Pressure O2 164.9 mmHg (75.0-100.0) H 50.0 mmHg (75.0-100.0) L Arterial Blood HCO3 20.5 mmol/L (22.0-26.0) L 18.2 mmol/L (22.0-26.0) L Arterial Blood Oxygen Saturation 98.8 % (95-100) 70.7 % (95-100) *L Arterial Blood Base Excess -3.2 (-2-2) L -11.3 (-2-2) *L Benny Test Positive Positive White Blood Count 6.1 K/UL (4.8-10.8) Red Blood Count 2.75 M/UL (4.70-6.10) L Hemoglobin 7.6 G/DL (14.2-18.0) L Hematocrit 23.5 % (42.0-52.0) L Mean Corpuscular Volume 85 FL (80-99) Mean Corpuscular Hemoglobin 27.8 PG (27.0-31.0) Mean Corpuscular Hemoglobin Concent 32.5 G/DL (32.0-36.0) Red Cell Distribution Width 17.9 % (11.6-14.8) H Platelet Count 147 K/UL (150-450) L Mean Platelet Volume 5.3 FL (6.5-10.1) L Neutrophils (%) (Auto) % (45.0-75.0) Lymphocytes (%) (Auto) % (20.0-45.0) Monocytes (%) (Auto) % (1.0-10.0) Eosinophils (%) (Auto) % (0.0-3.0) Basophils (%) (Auto) % (0.0-2.0) Differential Total Cells Counted 100 Neutrophils % (Manual) 70 % (45-75) Lymphocytes % (Manual) 21 % (20-45) Monocytes % (Manual) 9 % (1-10) Eosinophils % (Manual) 0 % (0-3) Basophils % (Manual) 0 % (0-2) Band Neutrophils 0 % (0-8) Platelet Estimate Adequate Platelet Morphology Normal Anisocytosis 1+ Sodium Level 141 MMOL/L (136-145) Potassium Level 4.0 MMOL/L (3.5-5.1) Chloride Level 107 MMOL/L (98-107) Carbon Dioxide Level 23 MMOL/L (21-32) Anion Gap 11 mmol/L (5-15) Blood Urea Nitrogen 30 mg/dL (7-18) H Creatinine 1.9 MG/DL (0.55-1.30) H Estimat Glomerular Filtration Rate 36.5 mL/min (>60) Glucose Level 156 MG/DL (74-106) #H Calcium Level 7.6 MG/DL (8.5-10.1) L Total Bilirubin 0.6 MG/DL (0.2-1.0) Aspartate Amino Transf (AST/SGOT) 49 U/L (15-37) H Alanine Aminotransferase (ALT/SGPT) 44 U/L (12-78) Alkaline Phosphatase 101 U/L (46-116) Troponin I 7.179 ng/mL (0.000-0.056) Total Protein 5.6 G/DL (6.4-8.2) L Albumin 1.8 G/DL (3.4-5.0) L Globulin 3.8 g/dL Albumin/Globulin Ratio 0.5 (1.0-2.7) L Vancomycin Level Trough 14.0 ug/mL (5.0-12.0) H Microbiology Date/Time Source Procedure Growth Status 02/09/19 14:45 Sputum Expectorated Received 02/08/19 22:30 Sputum Induced Gram Stain - Final Resulted 02/08/19 22:30 Sputum Induced Sputum Culture Pending Resulted Objective HEAD AND NECK: No JVD.Orally intubated LUNGS: Coarse rhonchi. CARDIOVASCULAR: Regular S1 and S2 with no gallop or murmur. ABDOMEN: Soft. EXTREMITIES: No pitting edema. Murray Francois MD Feb 10, 2019 12:01
--- NOTE | 2019-02-10 12:55 | NUR ---
NURSE NOTES: Dr. Meredith called to review ABG order after ventilator setting have remained at AC 30, TV: 600, FIO2: 100% and peep of 12. Ordered to have a ABG taken at 1400 propofol remain at 40mcg/kg/min at 23.446ml/hr with RASS score of -2.
[2019-02-10] MEDS ORDERED: NS 275ml ONE (13:10)
[2019-02-10] MEDS ORDERED: Tubing IV Secondary IV ONE (13:10)
--- NOTE | 2019-02-10 13:20 | NUR ---
NURSE NOTES: ABG ordered for 1400 collected and results reviewed with Dr. Meredith, he ordered to titrate FIO2 to maintain saturations above 90% and maintain peep at peep at 12 and obtain a 1800 ABG. remains on Propofol drip at 40mcg/kg/min with rate of 23.446ml/hr on the Left AC with blood return present. patient remains on bilateral wrist restraints with hands pink and warm with capillary refills less than 3 seconds. patient remains calm with eyes closed with RASS of -2, he awakes opening his eyes when light pinch or a sternal rub is applied, he remains on ventilator setting of AC: 30, TV: 600, FIO2: 90% with Peep 12.
--- NOTE | 2019-02-10 13:30 | NUR ---
NURSE NOTES: Dr. Francois notified of patient troponin level and EKG results at the bedside, EKG resulted with a possible right side ME, made aware morning metoprolol, Imdur and Losartan given. No verbal orders given at this time.
--- NOTE | 2019-02-10 13:39 | General Progress Note ---
Assessment/Plan Status: stable Assessment/Plan: 58 y Male admitted to the hospital due to fever, shortness of breath and chest pain. # Multilobar pneumonia in patient with HIV- worse - Broad sp atbx. Will continue Zosyn, Vancomycin and Azithromycin - Bactrim added for PCP coverage - Droplet precaution - Flu swab ordered. If positive will need antiviral therapy - Oxygen support - ID consult appreciated. AFB, cocci, hystoplasma, legionella, ordered. . - Patient s/p emergent bronchoscopy given florid ARDS without clear etiology # Acute Hypoxemic respiratory failure # ARDS - Cont mechanical ventilation, changed to pressure control - s/p emergent bronchoscopy - Due to pneumonia # NSTEMI - EKG with bifascicular block RBB and LAFB, no ST changes. - Trend troponin x3 - ECHO completed with no WMA and preserved EF. Dr. Francois consulted. Consideration for outpatient cath vs possibly myocarditis due to underlying viral infection. No evidence of Takotsubo per TTE. - NGT prn - Pain control with morphine # HIV - Continue HARRT - VL is undetectable per patient report. 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 Pt unable to provide additional history. Objective Last 24 Hour Vital Signs Date Time Temp Pulse Resp B/P (MAP) Pulse Ox O2 Delivery O2 Flow Rate FiO2 02/10/19 12:54 89 30 100 02/10/19 12:48 30 110/68 Mechanical Ventilator 100 02/10/19 10:48 95 30 100 02/10/19 10:46 93 30 90 Mechanical Ventilator 100 02/10/19 10:45 90 30 90 Mechanical Ventilator 100 02/10/19 10:10 146/65 02/10/19 10:08 129 146/65 02/10/19 10:08 146/65 02/10/19 09:58 100 02/10/19 08:57 32 155/71 Mechanical Ventilator 100 02/10/19 08:46 131 30 50 02/10/19 07:28 Mechanical Ventilator 50 02/10/19 07:27 Mechanical Ventilator 50 02/10/19 07:24 133 38 50 02/10/19 07:00 111 31 133/54 (80) 93 02/10/19 07:00 25 136/62 Endotracheal Tube 50 02/10/19 06:00 20 114/50 Endotracheal Tube 50 02/10/19 06:00 87 24 114/50 (71) 100 02/10/19 05:29 90 24 50 70 02/10/19 05:16 24 122/57 Endotracheal Tube 100.0 50 02/10/19 05:15 24 123/57 Endotracheal Tube 50 02/10/19 05:00 98.1 87 24 123/57 (79) 100 02/10/19 05:00 25 123/57 Endotracheal Tube 50 02/10/19 04:00 50 02/10/19 04:00 98.2 87 24 122/57 (78) 100 02/10/19 04:00 81 02/10/19 04:00 24 122/57 Endotracheal Tube 50 02/10/19 04:00 Mechanical Ventilator Mechanical Ventilator 02/10/19 03:43 93 24 98 Mechanical Ventilator 50 02/10/19 03:29 93 24 50 70 02/10/19 03:29 93 24 95 Mechanical Ventilator 50 02/10/19 03:00 92 20 120/57 (78) 97 02/10/19 03:00 24 119/55 Endotracheal Tube 50 02/10/19 02:00 24 119/56 Endotracheal Tube 50 02/10/19 02:00 91 20 119/56 (77) 97 02/10/19 01:20 88 24 50 70 02/10/19 01:06 22 114/54 Endotracheal Tube 100.0 50 02/10/19 01:05 24 113/55 Endotracheal Tube 50 02/10/19 01:00 90 20 113/55 (74) 97 02/10/19 01:00 22 114/54 Endotracheal Tube 50 02/10/19 00:00 88 02/10/19 00:00 50 02/10/19 00:00 24 110/52 Endotracheal Tube 50 02/10/19 00:00 Mechanical Ventilator Mechanical Ventilator 02/10/19 00:00 98.5 87 24 110/52 (71) 100 02/09/19 23:40 94 24 100 Mechanical Ventilator 50 02/09/19 23:32 98.1 02/09/19 23:30 87 24 95 Mechanical Ventilator 50 02/09/19 23:28 87 24 50 70 02/09/19 23:00 89 20 115/55 (75) 94 02/09/19 23:00 20 115/55 Endotracheal Tube 50 02/09/19 22:00 104 24 136/58 (84) 94 02/09/19 22:00 27 136/56 Endotracheal Tube 50 02/09/19 21:56 111 128/75 02/09/19 21:00 20 147/69 Endotracheal Tube 50 02/09/19 21:00 108 24 147/69 (95) 100 02/09/19 20:54 24 146/65 Endotracheal Tube 100.0 50 02/09/19 20:53 30 177/80 Endotracheal Tube 50 02/09/19 20:37 105 24 50 70 02/09/19 20:00 Mechanical Ventilator Mechanical Ventilator 02/09/19 20:00 98.5 99 24 135/60 (85) 100 02/09/19 20:00 24 135/60 Endotracheal Tube 70 02/09/19 20:00 50 02/09/19 20:00 93 02/09/19 19:41 95 24 100 Mechanical Ventilator 50 02/09/19 19:29 92 24 50 70 02/09/19 19:29 92 24 100 Mechanical Ventilator 50 02/09/19 19:00 24 126/59 Endotracheal Tube 70 02/09/19 19:00 92 24 126/59 (81) 100 02/09/19 18:00 99 27 122/66 (84) 100 02/09/19 18:00 29 122/66 Mechanical Ventilator 70 02/09/19 17:31 105 24 70 02/09/19 17:00 96 24 118/57 (77) 100 02/09/19 17:00 29 61/66 Mechanical Ventilator 70 02/09/19 16:44 24 114/54 Mechanical Ventilator 70 02/09/19 16:30 89 24 114/54 (74) 100 02/09/19 16:00 87 6/21/19 16:00 Mechanical Ventilator Mechanical Ventilator 02/09/19 16:00 70 02/09/19 16:00 24 112/52 Mechanical Ventilator 70 02/09/19 16:00 98.1 89 24 112/52 (72) 100 02/09/19 15:40 114 24 99 Mechanical Ventilator 100 02/09/19 15:30 83 24 111/56 (74) 100 02/09/19 15:22 82 24 70 02/09/19 15:22 84 24 100 Mechanical Ventilator 100 02/09/19 15:00 24 104/50 Non-Rebreather 70 02/09/19 15:00 84 24 104/50 (68) 100 02/09/19 14:30 84 24 102/55 (71) 96 02/09/19 14:00 77 24 102/55 (71) 100 02/09/19 14:00 24 102/55 Mechanical Ventilator 70 Intake and Output 02/09/19 02/10/19 19:00 07:00 Intake Total 2614.255 ml 2273.102 ml Output Total 595 ml 505 ml Balance 2019.255 ml 1768.102 ml Free Water 200 ml IV Total 2169.255 ml 1898.102 ml Tube Feeding 175 ml Other 445 ml Output Urine Total 595 ml 505 ml Laboratory Tests 02/10/19 04:49: White Blood Count 6.1, Red Blood Count 2.75L, Hemoglobin 7.6L, Hematocrit 23.5L , Mean Corpuscular Volume 85, Mean Corpuscular Hemoglobin 27.8, Mean Corpuscular Hemoglobin Concent 32.5, Red Cell Distribution Width 17.9H, Platelet Count 147L, Mean Platelet Volume 5.3L, Neutrophils (%) (Auto) , Lymphocytes (%) (Auto) , Monocytes (%) (Auto) , Eosinophils (%) (Auto) , Basophils (%) (Auto) , Differential Total Cells Counted 100, Neutrophils % ( Manual) 70, Lymphocytes % (Manual) 21, Monocytes % (Manual) 9, Eosinophils % ( Manual) 0, Basophils % (Manual) 0, Band Neutrophils 0, Platelet Estimate Adequate, Platelet Morphology Normal, Anisocytosis 1+, Sodium Level 141, Potassium Level 4.0, Chloride Level 107, Carbon Dioxide Level 23, Anion Gap 11, Blood Urea Nitrogen 30H, Creatinine 1.9H, Estimat Glomerular Filtration Rate 36.5, Glucose Level 156#H, Calcium Level 7.6L, Total Bilirubin 0.6, Aspartate Amino Transf (AST/SGOT) 49H, Alanine Aminotransferase (ALT/SGPT) 44, Alkaline Phosphatase 101, Troponin I 7.179H, Total Protein 5.6L, Albumin 1.8L, Globulin 3.8, Albumin/Globulin Ratio 0.5L 02/10/19 08:00: Vancomycin Level Trough 14.0H 02/10/19 08:40: Arterial Blood pH 7.106*L, Arterial Blood Partial Pressure CO2 59.3*H, Arterial Blood Partial Pressure O2 50.0L, Arterial Blood HCO3 18.2L, Arterial Blood Oxygen Saturation 70.7*L, Arterial Blood Base Excess -11.3*L, Benny Test Positive 02/10/19 13:00: Arterial Blood pH 7.367, Arterial Blood Partial Pressure CO2 25.9L, Arterial Blood Partial Pressure O2 253.3H, Arterial Blood HCO3 14.5*L, Arterial Blood Oxygen Saturation 99.1, Arterial Blood Base Excess -9.6*L, Benny Test Positive Height (Feet): 6 Height (Inches): 0.00 Weight (Pounds): 215 Objective vent settings reviewed General Appearance: Intubated, sedated. WD/WN, no apparent distress EENT: intubated Neck: non-tender, normal alignment Cardiovascular: normal peripheral pulses, normal rate Respiratory/Chest: chest wall non-tender, lungs clear Abdomen: normal bowel sounds, non tender Extremities: normal range of motion, non-tender Edema: trace edema Neurologic: continuous improvement consultant II-XII grossly normal Mj Lutz MD Feb 10, 2019 13:38
--- NOTE | 2019-02-10 14:16 | Consultation ---
History of Present Illness General Date patient seen: Feb 09, 2019 Chief Complaint: Chest Pain Present Illness Allergies: Coded Allergies: No Known Allergies (Unverified , 02/05/13) Medication History Scheduled Acetaminophen* (Acetaminophen Extra Strength*), 500 MG ORAL Q6H, (Reported) Aspirin Ec* (Aspirin Ec*), 81 MG ORAL DAILY Biotin (Biotin), 5,000 MCG PO DAILY, (Reported) Duloxetine Hcl* (Cymbalta*), 90 MG ORAL DAILY, (Reported) Etravirine* (Intelence*), 400 MG ORAL DAILY, (Reported) Ezetimibe (Zetia*), 10 MG ORAL BEDTIME, (Reported) Ferrous Sulfate* (Ferrous Sulfate*), 325 MG ORAL THREE TIMES A DAY, (Reported) Folic Acid (Folic Acid), 1 MG PO BID, (Reported) Isosorbide Mononitrate (Isosorbide Mononitrate Er), 30 MG PO DAILY, (Reported) Lamotrigine (Lamotrigine), 200 MG PO QHS, (Reported) Losartan Potassium* (Losartan Potassium*), 100 MG ORAL DAILY, (Reported) Metoprolol Tartrate* (Metoprolol Tartrate*), 100 MG ORAL Q12HR Nateglinide (Starlix), 120 MG ORAL THREE TIMES A DAY, (Reported) Raltegravir (Isentress), 400 MG ORAL EVERY 12 HOURS, (Reported) Sitagliptin* (Januvia*), 100 MG ORAL DAILY, (Reported) Tenofovir Disoproxil Fumarate* (Viread*), 300 MG ORAL DAILY, (Reported) Vitamin B Complex (Vitamin B Complex), 1 EACH PO DAILY, (Reported) Vitamin D (Vitamin D3), 400 UNITS ORAL DAILY, (Reported) Scheduled PRN Butalb/Acetaminophen/Caffeine (Qtwbpx-Bkvwxgox-Bqxb 50-325-40), 1 EACH PO BID PRN for For Pain, (Reported) Cetirizine Hcl* (Zyrtec*), 10 MG ORAL DAILY PRN for Itching, (Reported) Docusate Sodium (Docusate Sodium), 100 MG ORAL TWICE A DAY PRN for Constipation, (Reported) Miscellaneous Medications Guaifenesin (Mucinex), 100 MG PO, (Reported) Discontinued Medications Amlodipine Besylate (Norvasc), 10 MG ORAL DAILY Discontinued Reason: Pt stopped taking med Atorvastatin Calcium* (Lipitor*), 10 MG ORAL BEDTIME Discontinued Reason: Medication dose changed Biotin (Biotin), 5,000 MCG PO, (Reported) Discontinued Reason: Medication dose changed Cholecalciferol (Vitamin D3)* (Vitamin D*), 1,000 UNITS ORAL DAILY, (Reported) Discontinued Reason: Pt stopped taking med Etravirine* (Intelence*), 400 MG ORAL DAILY, (Reported) Discontinued Reason: Medication dose changed Guaifenesin/Dextromethorphan (Mucinex Dm Er 600-30 Mg Tablet), 1 EACH PO, ( Reported) Discontinued Reason: Medication dose changed Hydralazine Hcl* (Hydralazine Hcl*), 25 MG ORAL Q8HR Discontinued Reason: Pt stopped taking med Magnesium Gluconate (Magnesium Gluconate), 500 GM PO DAILY, (Reported) Discontinued Reason: Pt stopped taking med Raltegravir (Isentress), 400 MG ORAL BID, (Reported) Discontinued Reason: Medication dose changed Patient History Healthcare decision maker Resuscitation status Full Code Advanced Directive on File Physical Exam Last 24 Hour Vital Signs Date Time Temp Pulse Resp B/P (MAP) Pulse Ox O2 Delivery O2 Flow Rate FiO2 02/10/19 12:54 89 30 100 02/10/19 12:48 30 110/68 Mechanical Ventilator 100 02/10/19 10:48 95 30 100 02/10/19 10:46 93 30 90 Mechanical Ventilator 100 02/10/19 10:45 90 30 90 Mechanical Ventilator 100 02/10/19 10:10 146/65 02/10/19 10:08 129 146/65 02/10/19 10:08 146/65 02/10/19 09:58 100 02/10/19 08:57 32 155/71 Mechanical Ventilator 100 02/10/19 08:46 131 30 50 02/10/19 07:28 Mechanical Ventilator 50 02/10/19 07:27 Mechanical Ventilator 50 02/10/19 07:24 133 38 50 02/10/19 07:00 111 31 133/54 (80) 93 02/10/19 07:00 25 136/62 Endotracheal Tube 50 02/10/19 06:00 20 114/50 Endotracheal Tube 50 02/10/19 06:00 87 24 114/50 (71) 100 02/10/19 05:29 90 24 50 70 02/10/19 05:16 24 122/57 Endotracheal Tube 100.0 50 02/10/19 05:15 24 123/57 Endotracheal Tube 50 02/10/19 05:00 98.1 87 24 123/57 (79) 100 02/10/19 05:00 25 123/57 Endotracheal Tube 50 02/10/19 04:00 50 02/10/19 04:00 98.2 87 24 122/57 (78) 100 02/10/19 04:00 81 02/10/19 04:00 24 122/57 Endotracheal Tube 50 02/10/19 04:00 Mechanical Ventilator Mechanical Ventilator 02/10/19 03:43 93 24 98 Mechanical Ventilator 50 02/10/19 03:29 93 24 50 70 02/10/19 03:29 93 24 95 Mechanical Ventilator 50 02/10/19 03:00 92 20 120/57 (78) 97 02/10/19 03:00 24 119/55 Endotracheal Tube 50 02/10/19 02:00 24 119/56 Endotracheal Tube 50 02/10/19 02:00 91 20 119/56 (77) 97 02/10/19 01:20 88 24 50 70 02/10/19 01:06 22 114/54 Endotracheal Tube 100.0 50 02/10/19 01:05 24 113/55 Endotracheal Tube 50 02/10/19 01:00 90 20 113/55 (74) 97 02/10/19 01:00 22 114/54 Endotracheal Tube 50 02/10/19 00:00 88 02/10/19 00:00 50 02/10/19 00:00 24 110/52 Endotracheal Tube 50 02/10/19 00:00 Mechanical Ventilator Mechanical Ventilator 02/10/19 00:00 98.5 87 24 110/52 (71) 100 02/09/19 23:40 94 24 100 Mechanical Ventilator 50 02/09/19 23:32 98.1 02/09/19 23:30 87 24 95 Mechanical Ventilator 50 02/09/19 23:28 87 24 50 70 02/09/19 23:00 89 20 115/55 (75) 94 02/09/19 23:00 20 115/55 Endotracheal Tube 50 02/09/19 22:00 104 24 136/58 (84) 94 02/09/19 22:00 27 136/56 Endotracheal Tube 50 02/09/19 21:56 111 128/75 02/09/19 21:00 20 147/69 Endotracheal Tube 50 02/09/19 21:00 108 24 147/69 (95) 100 02/09/19 20:54 24 146/65 Endotracheal Tube 100.0 50 02/09/19 20:53 30 177/80 Endotracheal Tube 50 02/09/19 20:37 105 24 50 70 02/09/19 20:00 Mechanical Ventilator Mechanical Ventilator 02/09/19 20:00 98.5 99 24 135/60 (85) 100 02/09/19 20:00 24 135/60 Endotracheal Tube 70 02/09/19 20:00 50 02/09/19 20:00 93 02/09/19 19:41 95 24 100 Mechanical Ventilator 50 02/09/19 19:29 92 24 50 70 02/09/19 19:29 92 24 100 Mechanical Ventilator 50 02/09/19 19:00 24 126/59 Endotracheal Tube 70 02/09/19 19:00 92 24 126/59 (81) 100 02/09/19 18:00 99 27 122/66 (84) 100 02/09/19 18:00 29 122/66 Mechanical Ventilator 70 02/09/19 17:31 105 24 70 02/09/19 17:00 96 24 118/57 (77) 100 02/09/19 17:00 29 61/66 Mechanical Ventilator 70 02/09/19 16:44 24 114/54 Mechanical Ventilator 70 02/09/19 16:30 89 24 114/54 (74) 100 02/09/19 16:00 87 02/09/19 16:00 Mechanical Ventilator Mechanical Ventilator 02/09/19 16:00 70 02/09/19 16:00 24 112/52 Mechanical Ventilator 70 02/09/19 16:00 98.1 89 24 112/52 (72) 100 02/09/19 15:40 114 24 99 Mechanical Ventilator 100 02/09/19 15:30 83 24 111/56 (74) 100 02/09/19 15:22 82 24 70 02/09/19 15:22 84 24 100 Mechanical Ventilator 100 02/09/19 15:00 24 104/50 Non-Rebreather 70 02/09/19 15:00 84 24 104/50 (68) 100 02/09/19 14:30 84 24 102/55 (71) 96 Intake and Output 02/09/19 02/10/19 19:00 07:00 Intake Total 2614.255 ml 2273.102 ml Output Total 595 ml 505 ml Balance 2019.255 ml 1768.102 ml Free Water 200 ml IV Total 2169.255 ml 1898.102 ml Tube Feeding 175 ml Other 445 ml Output Urine Total 595 ml 505 ml Laboratory Tests Test 02/10/19 04:49 02/10/19 08:00 02/10/19 08:40 02/10/19 13:00 White Blood Count 6.1 K/UL (4.8-10.8) Red Blood Count 2.75 M/UL (4.70-6.10) L Hemoglobin 7.6 G/DL (14.2-18.0) L Hematocrit 23.5 % (42.0-52.0) L Mean Corpuscular Volume 85 FL (80-99) Mean Corpuscular Hemoglobin 27.8 PG (27.0-31.0) Mean Corpuscular Hemoglobin Concent 32.5 G/DL (32.0-36.0) Red Cell Distribution Width 17.9 % (11.6-14.8) H Platelet Count 147 K/UL (150-450) L Mean Platelet Volume 5.3 FL (6.5-10.1) L Neutrophils (%) (Auto) % (45.0-75.0) Lymphocytes (%) (Auto) % (20.0-45.0) Monocytes (%) (Auto) % (1.0-10.0) Eosinophils (%) (Auto) % (0.0-3.0) Basophils (%) (Auto) % (0.0-2.0) Differential Total Cells Counted 100 Neutrophils % (Manual) 70 % (45-75) Lymphocytes % (Manual) 21 % (20-45) Monocytes % (Manual) 9 % (1-10) Eosinophils % (Manual) 0 % (0-3) Basophils % (Manual) 0 % (0-2) Band Neutrophils 0 % (0-8) Platelet Estimate Adequate Platelet Morphology Normal Anisocytosis 1+ Sodium Level 141 MMOL/L (136-145) Potassium Level 4.0 MMOL/L (3.5-5.1) Chloride Level 107 MMOL/L (98-107) Carbon Dioxide Level 23 MMOL/L (21-32) Anion Gap 11 mmol/L (5-15) Blood Urea Nitrogen 30 mg/dL (7-18) H Creatinine 1.9 MG/DL (0.55-1.30) H Estimat Glomerular Filtration Rate 36.5 mL/min (>60) Glucose Level 156 MG/DL (74-106) #H Calcium Level 7.6 MG/DL (8.5-10.1) L Total Bilirubin 0.6 MG/DL (0.2-1.0) Aspartate Amino Transf (AST/SGOT) 49 U/L (15-37) H Alanine Aminotransferase (ALT/SGPT) 44 U/L (12-78) Alkaline Phosphatase 101 U/L (46-116) Troponin I 7.179 ng/mL (0.000-0.056) Total Protein 5.6 G/DL (6.4-8.2) L Albumin 1.8 G/DL (3.4-5.0) L Globulin 3.8 g/dL Albumin/Globulin Ratio 0.5 (1.0-2.7) L Vancomycin Level Trough 14.0 ug/mL (5.0-12.0) H Arterial Blood pH 7.106 (7.350-7.450) 7.367 (7.350-7.450) Arterial Blood Partial Pressure CO2 59.3 mmHg (35.0-45.0) *H 25.9 mmHg (35.0-45.0) L Arterial Blood Partial Pressure O2 50.0 mmHg (75.0-100.0) L 253.3 mmHg (75.0-100.0) H Arterial Blood HCO3 18.2 mmol/L (22.0-26.0) L 14.5 mmol/L (22.0-26.0) *L Arterial Blood Oxygen Saturation 70.7 % (95-100) *L 99.1 % (95-100) Arterial Blood Base Excess -11.3 (-2-2) *L -9.6 (-2-2) *L Benny Test Positive Positive Test 02/10/19 13:18 Erythrocyte Sedimentation Rate Pending C-Reactive Protein, Quantitative Pending Anti-Nuclear Antibody Screen Pending c-ANCA Titer Pending p-ANCA Titer Pending Microbiology Date/Time Source Procedure Growth Status 02/09/19 14:45 Sputum Expectorated Received Height (Feet): 6 Height (Inches): 0.00 Weight (Pounds): 215 Medications Current Medications Medications (Trade) Dose Ordered Sig/Marquis Route PRN Reason Start Time Stop Time Status Last Admin Dose Admin Acetaminophen (Tylenol) 650 mg Q4H PRN ORAL Mild Pain (Pain Scale 1-3) 02/07/19 11:15 03/08/19 17:29 02/07/19 23:01 Acetaminophen/ Butalbital/ Caffeine (Fioricet) 1 tab Q8H PRN ORAL For Headache 02/08/19 17:15 03/10/19 17:14 Albuterol/ Ipratropium (Albuterol/ Ipratropium) 3 ml Q4HRT HHN 02/09/19 15:00 02/14/19 14:59 02/10/19 10:45 Alprazolam (Xanax) 0.5 mg Q6H PRN ORAL For Anxiety 02/08/19 20:15 02/15/19 20:14 02/08/19 20:51 Aspirin (Ecotrin) 81 mg DAILY ORAL 02/08/19 09:00 03/09/19 08:59 02/09/19 10:26 Atorvastatin Calcium (Lipitor) 40 mg QHS ORAL 02/08/19 21:00 03/10/19 20:59 02/09/19 21:55 Azithromycin 250 mg/Sodium Chloride 275 ml @ 275 mls/hr DAILY IV 02/08/19 09:00 02/14/19 08:59 02/10/19 10:05 Bisacodyl (Dulcolax) 5 mg DAILYPRN PRN ORAL Constipation 02/08/19 17:15 03/10/19 17:14 Cetirizine HCl (ZyrTEC) 10 mg DAILYPRN PRN ORAL Itching 02/07/19 11:30 03/09/19 11:29 Dextrose (Dextrose 50%) 25 ml Q30M PRN IV Hypoglycemia 02/10/19 08:30 03/12/19 08:29 Dextrose (Dextrose 50%) 50 ml Q30M PRN IV Hypoglycemia 02/10/19 08:30 03/12/19 08:29 Docusate Sodium (Colace) 100 mg BID GT 02/10/19 09:00 03/12/19 08:59 02/10/19 10:11 Duloxetine HCl (Cymbalta) 90 mg DAILY ORAL 02/08/19 09:00 03/09/19 08:59 02/10/19 10:08 Enoxaparin Sodium (Lovenox) 40 mg Q24H SUBQ 02/07/19 21:00 03/08/19 20:59 02/08/19 20:54 EZETIMIBE (Zetia) 10 mg BEDTIME ORAL 02/07/19 21:00 03/08/19 20:59 02/09/19 21:56 Famotidine (Pepcid) 20 mg BID ORAL 02/07/19 18:00 03/08/19 19:59 02/10/19 10:10 Ferrous Sulfate (Feosol) 325 mg THREE TIMES A DAY ORAL 02/07/19 13:00 03/09/19 08:59 02/10/19 12:40 Fluconazole/ Sodium Chloride 100 ml @ 100 mls/hr Q24H IV 02/09/19 18:00 02/16/19 17:59 02/09/19 18:58 Folic Acid (Folate) 1 mg BID ORAL 02/07/19 18:00 03/09/19 08:59 02/10/19 10:09 Guaifenesin (Mucinex ER) 600 mg TWICE A DAY ORAL 02/07/19 18:00 03/09/19 08:59 02/10/19 10:08 Hydralazine HCl (Apresoline) 25 mg Q6H PRN ORAL SBP > 160mmHg 02/07/19 11:15 03/08/19 11:14 02/08/19 15:32 Insulin Aspart (NovoLOG) EVERY 4 HOURS SUBQ 02/10/19 09:00 03/08/19 12:29 02/10/19 12:49 Insulin Detemir (Levemir) 8 units BID SUBQ 02/10/19 09:00 03/12/19 08:59 02/10/19 10:37 Isosorbide Mononitrate (Imdur) 30 mg DAILY ORAL 02/08/19 09:00 03/09/19 08:59 02/10/19 10:08 Losartan Potassium (Cozaar) 100 mg DAILY ORAL 02/08/19 09:00 03/09/19 08:59 02/10/19 10:10 Magnesium Hydroxide (Mom) 30 ml DAILYPRN PRN ORAL Constipation 02/08/19 15:30 03/10/19 15:29 02/08/19 16:08 Methylprednisolone Sodium Succinate (Solu-MEDROL) 40 mg EVERY 12 HOURS IVP 02/10/19 21:00 03/12/19 20:59 Metoprolol Tartrate (Lopressor) 100 mg Q12HR ORAL 02/07/19 21:00 03/08/19 20:59 02/10/19 10:08 Morphine Sulfate (Morphine Sulfate) 2 mg Q2H PRN IVP Moderate Pain (Pain Scale 4-6) 02/07/19 16:15 02/14/19 16:14 02/07/19 21:16 Morphine Sulfate (Morphine Sulfate) 4 mg Q2H PRN IVP Severe Pain (Pain Scale 7-10) 02/07/19 16:15 02/14/19 16:14 02/09/19 23:02 Nitroglycerin (Ntg) 0.4 mg Q5M PRN SL Prn Chest Pain 02/07/19 11:00 03/08/19 17:29 02/08/19 07:42 Ondansetron HCl (Zofran) 4 mg Q6H PRN IVP Nausea & Vomiting 02/07/19 11:15 03/08/19 11:14 02/09/19 00:58 Patient Own Medication (Patient's Own Med) 1 ea BID ORAL 02/07/19 18:00 03/09/19 17:59 02/10/19 10:06 Patient Own Medication (Patient's Own Med) 1 ea DAILY ORAL 02/08/19 09:00 03/10/19 08:59 02/10/19 10:06 Patient Own Medication (Patient's Own Med) 2 ea DAILY ORAL 02/08/19 09:00 03/10/19 08:59 02/10/19 10:06 Piperacillin Sod/ Tazobactam Sod 3.375 gm/Sodium Chloride 110 ml @ 27.5 mls/hr EVERY 8 HOURS IVPB 02/07/19 14:00 02/13/19 21:59 02/10/19 05:33 Polyethylene Glycol (Miralax) 17 gm BEDTIME ORAL 02/08/19 21:00 03/10/19 20:59 02/09/19 21:55 Propofol 100 ml @ 0 mls/hr Q24H IV 02/09/19 07:47 02/11/19 07:46 02/10/19 12:48 Sodium Chloride 1,000 ml @ 100 mls/hr Q10H IVLG 02/07/19 11:00 03/08/19 18:17 02/10/19 10:05 Trimethoprim/ Sulfamethoxazole (Bactrim-DS) 2 tab TWICE A DAY ORAL 02/10/19 09:00 02/17/19 08:59 02/10/19 10:09 Vancomycin HCl (Vanco rx to dose) 1 ea DAILY PRN MISC Per rx protocol 02/07/19 11:15 03/09/19 11:14 Vancomycin HCl 1 gm/Dextrose 275 ml @ 183.708 mls/hr Q12HR@1100,2300 IVPB 02/10/19 11:00 02/15/19 10:59 02/10/19 12:40 Vitamin D (Vitamin D) 400 intlu DAILY ORAL 02/08/19 09:00 03/09/19 08:59 02/10/19 10:07 Assessment/Plan Assessment/Plan: HEME/ONC CONSULT DATE OF CONSULT: 02/09/2019 REFERRING MD: Mj Miller REASON FOR CONSULT: Anemia, thrombocytopenia HISTORY OF PRESENT ILLNESS: The patient is a 58-year-old gentleman with history of hypertension, diabetes, hyperlipidemia, HIV, on HAART regimen with the undetectable viral load. His human immunodeficiency virus was diagnosed in . The patient has been admitted to [facility] in October of 2018 for chest pain for which he underwent a nuclear stress test that was negative for ischemia. Two days ago, he went to see his PCP with lower extremity edema. The patient also was feeling sick and was coughing. The patient received a prescription for Lasix, however, he still continues to have malaise and shortness of breath and cough and fever. He came to the emergency room for chest pain with cough and was hypoxic at 84% range. The patient was started on BiPAP with the results of some improvement. Review of cbc showed a low hgb of 8.6 and a plt that is trending downwards, 220k-->160k. Heme/Onc services were consulted for the evaluation of anemia and thrombocytopenia. PAST MEDICAL HISTORY: As mentioned above. PAST SURGICAL HISTORY: Unknown FAMILY HISTORY: Noncontributory. SOCIAL HISTORY: He is homeless. Denies smoking or drinking alcohol. REVIEW OF SYSTEMS: Negative other than what is mentioned in the history of present illness. PHYSICAL EXAMINATION: GENERAL: NAD VITAL SIGNS: Have been reviewed. HEAD AND NECK: Shows no JVD. NG+ TRACH+ LUNGS: Coarse rhonchi. CARDIOVASCULAR: Shows regular S1 and S2 with no gallop or murmur. ABDOMEN: Soft. EXTREMITIES: No pitting edema. LABORATORY DATA: wbc 8.2 hgb 8.6 plt 147k ASSESSMENT AND RECOMMENDATIONS # Anemia of chronic disease (or of iron deficiency) due to underlying chronic medical issues, multifactorial --> Anemia workup has been ordered, rule out gi bleed --> No evidence of hemolysis is noted, peripheral smear has been reviewed. --> Hgb goal >7. Transfuse prn. --> Epogen or iron at this time is not particularly indicated --> Medications have been reviewed --> low threshold for gi evaluation in case has occult + --> bone marrow biopsy is not indicated given the other more likely causes # Thrombocytopenia - potential causes multifactorial, evaluate liver and viral etiologies to begin, also could be related to underlying medications patient has received. --> Hep panel and HIV ordered --> US abd to evaluate for cirrhosis and hsm ordered --> Peripheral smear ordered to evaluate for blasts /schistocytes --> abx and other meds have been reviewed --> ok for ppx if plt >50k w/ either heparin or lovenox --> Transfuse if Plt < 20k and fever, or if Plt < 10k without fever # Multilobar pneumonia in patient with HIV. Recs per ID. --> Broad sp atbx started. Continue Zosyn, Vancomycin and Azithromycin --> Droplet precaution # Hypoxemic respiratory failure. Pulm is following, appreciate recs. --> Bipap as needed, transition to O2 via NC when able --> Due to pneumonia, on abx # Chest pain. 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 --> Trend troponin x3 --> NGT prn # HIV. --> Continue HARRT --> VL is undetectable per patient report. # HTN --> Resume home medication # DVT and GI ppx The time the note is entered does not reflect the time the patient was examined. I greatly appreciate the consultation. Chan Hernandez MD Feb 10, 2019 14:16
--- NOTE | 2019-02-10 15:42 | Diagnostic Imaging Report ---
EXAM: XR Chest, 1 View CLINICAL HISTORY: INFECT TECHNIQUE: Frontal view of the chest. COMPARISON: Chest radiograph on 02/09/2019 FINDINGS: Hardware: Endotracheal tube terminates in the region of the mid thoracic trachea. Enteric tube courses past the diaphragm and out of the field of view. Lungs/pleura: Slightly decreased but persistent patchy consolidations in the right lung. Slightly decreased left perihilar opacities/consolidations. Possible small bilateral pleural effusions. Heart/mediastinum: Stable mild enlargement of the cardiomediastinal silhouette. Soft tissues: Unremarkable. Bones: No acute fracture. Degenerative changes of the visualized right acromioclavicular joint. Degenerative changes of the spine. Upper abdomen: Normal. IMPRESSION: Slightly decreased but persistent patchy consolidations in the right lung. Slightly decreased left perihilar opacities. Findings may represent infectious/inflammatory process and/or pulmonary edema. Possible small bilateral pleural effusions.
--- NOTE | 2019-02-10 16:55 | NUR ---
CASE MANAGEMENT: REVIEW 02/10/2019 SI:SEPSIS. T 99 HR 86 RR 30 B/P 102/61 SATS 100% ON MECH VENT FiO2 90 HCT 7.6 HGB 23.5 BUN 30 CR 1.9 GLU 156 CA 7.6 AST 49 TROPONIN 7.179 ABGs PH 7.106 PCO2 59.3 PO2 50 HCO3 18.2 O2 SATS 70.7 BE -11.3 IS: IVF @ 100 ml/HR INSULIN ASPART SUBQ Q4H ZOSYN IV Q8H SOLU MEDROL IV Q12H BACTRIM PO BID ZETIA PO QHS LEVEMIR SUBQ BID AZITHROMYCIN IV QD ASA PO QD CYMBALTA PO QD COZAAR PO QD VANCO IV Q12H PROPOFOL IV PER PARAMETERS FLUCONAZOLE IV Q24H ICU STATUS DCP: PATIENT TO BE DISCHARGED TO HOME ONCE MEDICALLY CLEARED. PLAN OF CARE: - Broad sp atbx. Will continue Zosyn, Vancomycin and Azithromycin - Bactrim added for PCP coverage - Droplet precaution - Flu swab ordered. If positive will need antiviral therapy
--- NOTE | 2019-02-10 17:20 | NUR ---
NURSE NOTES: Dr. Mishra notified regarding patient urine output decrease below 30ml/hr for the last fours hours, patient remains on propofol at 23.446ml/hr and normal saline with 100ml/hr and tube feeding at 20ml/hr. dr. mishra ordered to have a bladder scan taken at the bedside, and ordered to given lasix 20mg once IVP.
--- NOTE | 2019-02-10 17:58 | NUR ---
NURSE NOTES: Dr. Meredith notified regarding the ABG result ordered for 1800, ordered to have FIO2 titrated to keep SAO2 greater than 90%. patient remains on ventilator setting of AC: 30, TV: 600, FIO2: 90% with PEEP of 12. patient remains sedated using propofol at 40mcg/kg/min, he remains on RASS of -2, he is able to make eyes contact for less than 5seconds, he remains on restraints bilaterally for reaching towards ET-tube, skin remains intact around the wrist and has pulses present distally.
--- NOTE | 2019-02-10 18:36 | Pulmonolgy Critical Care Note ---
Critical Care - Asmt/Plan Assessment/Plan: VDRF ARDS Acute respiratory failure B pulmonary infiltrates, ? multilobar CAP vs atypical infection vs other ? PJP AIDS (CD4 191) NSTEMI H/O prior CVA HTN HL DM CKD Anemia PLAN: Based on IBW 77 gk, TV [id number]: will change vent to AC 24, TV 550 Titrate down FiO2, then PEEP to keep SaO2 > 90 CT pending too unstable to transfer RTC and PRN HHN's Continue Abx per ID (Zosyn, Vanco, Azithro), will add IV TMP-SMX for now F/U ID recs, F/U CX's F/U CT chest - not done yet Monitor volumes and renal function, mIVF F/U cards recs: ASA, statin, ARB, per cards hold off on IVUH, continue LMWH Px, will need further ischemia eval/cath once stabilized DVT Px: LMWH ICU sedation, continue Propofol, monitor triglycerides Monitor BS, continue SSI Respiratory: adjust tidal volume, CXR, ABG Cardiac: continue to monitor HR/BP Infectious Disease: check cultures Gastrointestinal: continue feedings/current rate Endocrine: monitor blood sugar Prophylaxis: Protonix, Heparin Disposition: keep in ICU Time Spent (Minutes): 50 Notes Reviewed: installer, cardio Discussed with: nurses Critical Care - Objective Last 24 Hour Vital Signs Date Time Temp Pulse Resp B/P (MAP) Pulse Ox O2 Delivery O2 Flow Rate FiO2 02/10/19 18:00 85 30 115/58 (77) 100 02/10/19 17:30 85 30 106/62 (77) 100 02/10/19 17:07 84 30 90 02/10/19 17:00 84 30 114/59 (77) 100 02/10/19 16:30 85 30 105/61 (76) 100 02/10/19 16:25 30 109/60 Mechanical Ventilator 90 02/10/19 16:00 98.7 86 30 104/64 (77) 100 02/10/19 16:00 84 02/10/19 16:00 90 02/10/19 15:41 89 30 97 Mechanical Ventilator 100 02/10/19 15:39 83 30 100 Mechanical Ventilator 100 02/10/19 15:38 84 30 90 02/10/19 15:30 84 30 105/61 (76) 100 02/10/19 15:00 30 102/61 Mechanical Ventilator 90 02/10/19 15:00 99.0 86 30 102/61 (75) 100 02/10/19 14:30 88 30 104/62 (76) 100 02/10/19 14:00 86 30 106/63 (77) 100 02/10/19 14:00 30 106/63 Mechanical Ventilator 90 02/10/19 13:30 86 30 106/62 (77) 100 02/10/19 13:00 30 106/63 Mechanical Ventilator 90 02/10/19 13:00 86 30 106/63 (77) 100 02/10/19 12:54 89 30 90 02/10/19 12:48 30 110/68 Mechanical Ventilator 100 02/10/19 12:30 86 30 110/68 (82) 100 02/10/19 12:00 98.1 87 30 95/63 (74) 100 02/10/19 12:00 100 02/10/19 12:00 30 95/63 Mechanical Ventilator 100 02/10/19 12:00 88 02/10/19 11:30 86 30 98/54 (69) 100 02/10/19 11:00 87 29 89/53 (65) 100 02/10/19 11:00 30 86/53 Mechanical Ventilator 100 02/10/19 10:48 95 30 100 02/10/19 10:46 93 30 90 Mechanical Ventilator 100 02/10/19 10:45 90 30 90 Mechanical Ventilator 100 02/10/19 10:30 95 28 115/54 (74) 91 02/10/19 10:10 146/65 02/10/19 10:08 129 146/65 02/10/19 10:08 146/65 02/10/19 10:00 125 31 139/65 (89) 92 02/10/19 10:00 31 146/65 Mechanical Ventilator 100 02/10/19 09:58 100 02/10/19 09:58 100 02/10/19 09:30 123 30 134/62 (86) 63 02/10/19 09:00 130 32 86/65 (72) 75 02/10/19 09:00 34 153/65 Mechanical Ventilator 100 02/10/19 08:57 32 155/71 Mechanical Ventilator 100 02/10/19 08:46 131 30 50 02/10/19 08:30 133 33 172/74 (106) 71 02/10/19 08:00 99.5 138 32 190/81 (117) 77 02/10/19 08:00 127 02/10/19 08:00 100 02/10/19 08:00 31 190/81 Mechanical Ventilator 100 02/10/19 07:30 128 30 172/72 (105) 85 02/10/19 07:28 Mechanical Ventilator 50 02/10/19 07:27 Mechanical Ventilator 50 02/10/19 07:24 133 38 50 02/10/19 07:00 111 31 133/54 (80) 93 02/10/19 07:00 25 136/62 Endotracheal Tube 50 02/10/19 06:00 20 114/50 Endotracheal Tube 50 02/10/19 06:00 87 24 114/50 (71) 100 02/10/19 05:29 90 24 50 70 02/10/19 05:16 24 122/57 Endotracheal Tube 100.0 50 02/10/19 05:15 24 123/57 Endotracheal Tube 50 02/10/19 05:00 98.1 87 24 123/57 (79) 100 02/10/19 05:00 25 123/57 Endotracheal Tube 50 02/10/19 04:00 50 02/10/19 04:00 98.2 87 24 122/57 (78) 100 02/10/19 04:00 81 02/10/19 04:00 24 122/57 Endotracheal Tube 50 02/10/19 04:00 Mechanical Ventilator Mechanical Ventilator 02/10/19 03:43 93 24 98 Mechanical Ventilator 50 02/10/19 03:29 93 24 50 70 02/10/19 03:29 93 24 95 Mechanical Ventilator 50 02/10/19 03:00 92 20 120/57 (78) 97 02/10/19 03:00 24 119/55 Endotracheal Tube 50 02/10/19 02:00 24 119/56 Endotracheal Tube 50 02/10/19 02:00 91 20 119/56 (77) 97 02/10/19 01:20 88 24 50 70 02/10/19 01:06 22 114/54 Endotracheal Tube 100.0 50 02/10/19 01:05 24 113/55 Endotracheal Tube 50 02/10/19 01:00 90 20 113/55 (74) 97 02/10/19 01:00 22 114/54 Endotracheal Tube 50 02/10/19 00:00 88 02/10/19 00:00 50 02/10/19 00:00 24 110/52 Endotracheal Tube 50 02/10/19 00:00 Mechanical Ventilator Mechanical Ventilator 02/10/19 00:00 98.5 87 24 110/52 (71) 100 02/09/19 23:40 94 24 100 Mechanical Ventilator 50 02/09/19 23:32 98.1 02/09/19 23:30 87 24 95 Mechanical Ventilator 50 02/09/19 23:28 87 24 50 70 02/09/19 23:00 89 20 115/55 (75) 94 02/09/19 23:00 20 115/55 Endotracheal Tube 50 02/09/19 22:00 104 24 136/58 (84) 94 02/09/19 22:00 27 136/56 Endotracheal Tube 50 02/09/19 21:56 111 128/75 02/09/19 21:00 20 147/69 Endotracheal Tube 50 02/09/19 21:00 108 24 147/69 (95) 100 02/09/19 20:54 24 146/65 Endotracheal Tube 100.0 50 02/09/19 20:53 30 177/80 Endotracheal Tube 50 02/09/19 20:37 105 24 50 70 02/09/19 20:00 Mechanical Ventilator Mechanical Ventilator 02/09/19 20:00 98.5 99 24 135/60 (85) 100 02/09/19 20:00 24 135/60 Endotracheal Tube 70 02/09/19 20:00 50 02/09/19 20:00 93 02/09/19 19:41 95 24 100 Mechanical Ventilator 50 02/09/19 19:29 92 24 50 70 02/09/19 19:29 92 24 100 Mechanical Ventilator 50 02/09/19 19:00 24 126/59 Endotracheal Tube 70 02/09/19 19:00 92 24 126/59 (81) 100 Status: obtunded Condition: critical Lungs: rhonchi Heart: HR/BP unstable Abdomen: soft, non-tender Extremities: edema Decubiti: location Micro: Microbiology Date/Time Source Procedure Growth Status 02/09/19 14:45 Sputum Expectorated Received 02/09/19 14:45 Sputum AFB Specimen Processing Tissue - Final Resulted 02/09/19 14:45 Sputum Acid Fast Bacilli Smear - Final Resulted 02/09/19 14:45 Sputum Acid Fast Bacilli Culture Pending Resulted 02/09/19 05:20 Sputum AFB Specimen Processing Tissue - Final Resulted 02/09/19 05:20 Sputum Acid Fast Bacilli Smear - Final Resulted 02/09/19 05:20 Sputum Acid Fast Bacilli Culture Pending Resulted 02/08/19 22:30 Sputum Induced Gram Stain - Final Resulted 02/08/19 22:30 Sputum Induced Sputum Culture Pending Resulted 02/08/19 05:20 Sputum AFB Specimen Processing Tissue - Final Resulted 02/08/19 05:20 Sputum Acid Fast Bacilli Smear - Final Resulted 02/08/19 05:20 Sputum Acid Fast Bacilli Culture Pending Resulted Accucheck: 284 Critical Care - Subjective FI02: 90 Vent Support Breath Rate: 30 Vent Support Mode: AC Vent Tidal Volume: 600 Sputum Amount: Small PEEP: 12.0 PIP: 33 Tube Feeding Amount: 20 I&O: Intake and Output 02/09/19 02/10/19 19:00 07:00 Intake Total 2614.255 ml 2273.102 ml Output Total 595 ml 505 ml Balance 2019.255 ml 1768.102 ml Free Water 200 ml IV Total 2169.255 ml 1898.102 ml Tube Feeding 175 ml Other 445 ml Output Urine Total 595 ml 505 ml Subjective: events noted on the vent no distress npo no fever no bleeding abg reviewed troponin elevated today CXR wtih bilateral infiltrates on ac 20 tv 600 12 peep 90% Fio2 ET-Tube: 7.5 ET Position: 25 Labs: Laboratory Tests Test 02/10/19 04:49 02/10/19 08:00 02/10/19 08:40 02/10/19 13:00 White Blood Count 6.1 K/UL (4.8-10.8) Red Blood Count 2.75 M/UL (4.70-6.10) L Hemoglobin 7.6 G/DL (14.2-18.0) L Hematocrit 23.5 % (42.0-52.0) L Mean Corpuscular Volume 85 FL (80-99) Mean Corpuscular Hemoglobin 27.8 PG (27.0-31.0) Mean Corpuscular Hemoglobin Concent 32.5 G/DL (32.0-36.0) Red Cell Distribution Width 17.9 % (11.6-14.8) H Platelet Count 147 K/UL (150-450) L Mean Platelet Volume 5.3 FL (6.5-10.1) L Neutrophils (%) (Auto) % (45.0-75.0) Lymphocytes (%) (Auto) % (20.0-45.0) Monocytes (%) (Auto) % (1.0-10.0) Eosinophils (%) (Auto) % (0.0-3.0) Basophils (%) (Auto) % (0.0-2.0) Differential Total Cells Counted 100 Neutrophils % (Manual) 70 % (45-75) Lymphocytes % (Manual) 21 % (20-45) Monocytes % (Manual) 9 % (1-10) Eosinophils % (Manual) 0 % (0-3) Basophils % (Manual) 0 % (0-2) Band Neutrophils 0 % (0-8) Platelet Estimate Adequate Platelet Morphology Normal Anisocytosis 1+ Sodium Level 141 MMOL/L (136-145) Potassium Level 4.0 MMOL/L (3.5-5.1) Chloride Level 107 MMOL/L (98-107) Carbon Dioxide Level 23 MMOL/L (21-32) Anion Gap 11 mmol/L (5-15) Blood Urea Nitrogen 30 mg/dL (7-18) H Creatinine 1.9 MG/DL (0.55-1.30) H Estimat Glomerular Filtration Rate 36.5 mL/min (>60) Glucose Level 156 MG/DL (74-106) #H Calcium Level 7.6 MG/DL (8.5-10.1) L Total Bilirubin 0.6 MG/DL (0.2-1.0) Aspartate Amino Transf (AST/SGOT) 49 U/L (15-37) H Alanine Aminotransferase (ALT/SGPT) 44 U/L (12-78) Alkaline Phosphatase 101 U/L (46-116) Troponin I 7.179 ng/mL (0.000-0.056) Total Protein 5.6 G/DL (6.4-8.2) L Albumin 1.8 G/DL (3.4-5.0) L Globulin 3.8 g/dL Albumin/Globulin Ratio 0.5 (1.0-2.7) L Vancomycin Level Trough 14.0 ug/mL (5.0-12.0) H Arterial Blood pH 7.106 (7.350-7.450) 7.367 (7.350-7.450) Arterial Blood Partial Pressure CO2 59.3 mmHg (35.0-45.0) *H 25.9 mmHg (35.0-45.0) L Arterial Blood Partial Pressure O2 50.0 mmHg (75.0-100.0) L 253.3 mmHg (75.0-100.0) H Arterial Blood HCO3 18.2 mmol/L (22.0-26.0) L 14.5 mmol/L (22.0-26.0) *L Arterial Blood Oxygen Saturation 70.7 % (95-100) *L 99.1 % (95-100) Arterial Blood Base Excess -11.3 (-2-2) *L -9.6 (-2-2) *L Benny Test Positive Positive Test 02/10/19 13:18 02/10/19 17:40 Erythrocyte Sedimentation Rate 130 MM/HR (0-20) H C-Reactive Protein, Quantitative 27.8 mg/dL (0.00-0.90) H Anti-Nuclear Antibody Screen Pending c-ANCA Titer Pending p-ANCA Titer Pending Arterial Blood pH 7.418 (7.350-7.450) Arterial Blood Partial Pressure CO2 26.9 mmHg (35.0-45.0) L Arterial Blood Partial Pressure O2 229.9 mmHg (75.0-100.0) H Arterial Blood HCO3 17.0 mmol/L (22.0-26.0) *L Arterial Blood Oxygen Saturation 99.0 % (95-100) Arterial Blood Base Excess -6.5 (-2-2) L Benny Test Positive Current Medications Medications (Trade) Dose Ordered Sig/Marquis Route PRN Reason Start Time Stop Time Status Last Admin Dose Admin Acetaminophen (Tylenol) 650 mg Q4H PRN ORAL Mild Pain (Pain Scale 1-3) 02/07/19 11:15 03/08/19 17:29 02/07/19 23:01 Acetaminophen/ Butalbital/ Caffeine (Fioricet) 1 tab Q8H PRN ORAL For Headache 02/08/19 17:15 03/10/19 17:14 Albuterol/ Ipratropium (Albuterol/ Ipratropium) 3 ml Q4HRT HHN 02/09/19 15:00 02/14/19 14:59 02/10/19 10:45 Alprazolam (Xanax) 0.5 mg Q6H PRN ORAL For Anxiety 02/08/19 20:15 02/15/19 20:14 02/08/19 20:51 Aspirin (Ecotrin) 81 mg DAILY ORAL 02/08/19 09:00 03/09/19 08:59 02/09/19 10:26 Atorvastatin Calcium (Lipitor) 40 mg QHS ORAL 02/08/19 21:00 03/10/19 20:59 02/09/19 21:55 Azithromycin 250 mg/Sodium Chloride 275 ml @ 275 mls/hr DAILY IV 02/08/19 09:00 02/14/19 08:59 02/10/19 10:05 Bisacodyl (Dulcolax) 5 mg DAILYPRN PRN ORAL Constipation 02/08/19 17:15 03/10/19 17:14 Cetirizine HCl (ZyrTEC) 10 mg DAILYPRN PRN ORAL Itching 02/07/19 11:30 03/09/19 11:29 Dextrose (Dextrose 50%) 25 ml Q30M PRN IV Hypoglycemia 02/10/19 08:30 03/12/19 08:29 Dextrose (Dextrose 50%) 50 ml Q30M PRN IV Hypoglycemia 02/10/19 08:30 03/12/19 08:29 Docusate Sodium (Colace) 100 mg BID GT 02/10/19 09:00 03/12/19 08:59 02/10/19 17:41 Duloxetine HCl (Cymbalta) 90 mg DAILY ORAL 02/08/19 09:00 03/09/19 08:59 02/10/19 10:08 Enoxaparin Sodium (Lovenox) 40 mg Q24H SUBQ 02/07/19 21:00 03/08/19 20:59 02/08/19 20:54 EZETIMIBE (Zetia) 10 mg BEDTIME ORAL 02/07/19 21:00 03/08/19 20:59 02/09/19 21:56 Famotidine (Pepcid) 20 mg BID ORAL 02/07/19 18:00 03/08/19 19:59 02/10/19 17:40 Ferrous Sulfate (Feosol) 325 mg THREE TIMES A DAY ORAL 02/07/19 13:00 03/09/19 08:59 02/10/19 17:41 Fluconazole/ Sodium Chloride 100 ml @ 100 mls/hr Q24H IV 02/09/19 18:00 02/16/19 17:59 02/10/19 17:40 Folic Acid (Folate) 1 mg BID ORAL 02/07/19 18:00 03/09/19 08:59 02/10/19 17:41 Furosemide (Lasix) 20 mg ONCE IV 02/10/19 20:00 02/10/19 21:00 Guaifenesin (Mucinex ER) 600 mg TWICE A DAY ORAL 02/07/19 18:00 03/09/19 08:59 02/10/19 17:41 Hydralazine HCl (Apresoline) 25 mg Q6H PRN ORAL SBP > 160mmHg 02/07/19 11:15 03/08/19 11:14 02/08/19 15:32 Insulin Aspart (NovoLOG) EVERY 4 HOURS SUBQ 02/10/19 09:00 03/08/19 12:29 02/10/19 17:45 Insulin Detemir (Levemir) 8 units BID SUBQ 02/10/19 09:00 03/12/19 08:59 02/10/19 17:44 Isosorbide Mononitrate (Imdur) 30 mg DAILY ORAL 02/08/19 09:00 03/09/19 08:59 02/10/19 10:08 Losartan Potassium (Cozaar) 100 mg DAILY ORAL 02/08/19 09:00 03/09/19 08:59 02/10/19 10:10 Magnesium Hydroxide (Mom) 30 ml DAILYPRN PRN ORAL Constipation 02/08/19 15:30 03/10/19 15:29 02/08/19 16:08 Methylprednisolone Sodium Succinate (Solu-MEDROL) 40 mg EVERY 12 HOURS IVP 02/10/19 21:00 03/12/19 20:59 Metoprolol Tartrate (Lopressor) 100 mg Q12HR ORAL 02/07/19 21:00 03/08/19 20:59 02/10/19 10:08 Morphine Sulfate (Morphine Sulfate) 2 mg Q2H PRN IVP Moderate Pain (Pain Scale 4-6) 02/07/19 16:15 02/14/19 16:14 02/07/19 21:16 Morphine Sulfate (Morphine Sulfate) 4 mg Q2H PRN IVP Severe Pain (Pain Scale 7-10) 02/07/19 16:15 02/14/19 16:14 02/09/19 23:02 Nitroglycerin (Ntg) 0.4 mg Q5M PRN SL Prn Chest Pain 02/07/19 11:00 03/08/19 17:29 02/08/19 07:42 Ondansetron HCl (Zofran) 4 mg Q6H PRN IVP Nausea & Vomiting 02/07/19 11:15 03/08/19 11:14 02/09/19 00:58 Patient Own Medication (Patient's Own Med) 1 ea BID ORAL 02/07/19 18:00 03/09/19 17:59 02/10/19 17:40 Patient Own Medication (Patient's Own Med) 1 ea DAILY ORAL 02/08/19 09:00 03/10/19 08:59 02/10/19 10:06 Patient Own Medication (Patient's Own Med) 2 ea DAILY ORAL 02/08/19 09:00 03/10/19 08:59 02/10/19 10:06 Piperacillin Sod/ Tazobactam Sod 3.375 gm/Sodium Chloride 110 ml @ 27.5 mls/hr EVERY 8 HOURS IVPB 02/07/19 14:00 02/13/19 21:59 02/10/19 15:10 Polyethylene Glycol (Miralax) 17 gm BEDTIME ORAL 02/08/19 21:00 03/10/19 20:59 02/09/19 21:55 Propofol 100 ml @ 0 mls/hr Q24H IV 02/09/19 07:47 02/11/19 07:46 02/10/19 16:25 Sodium Chloride 1,000 ml @ 100 mls/hr Q10H IVLG 02/07/19 11:00 03/08/19 18:17 02/10/19 10:05 Trimethoprim/ Sulfamethoxazole (Bactrim-DS) 2 tab TWICE A DAY ORAL 02/10/19 09:00 02/17/19 08:59 02/10/19 17:41 Vancomycin HCl (Vanco rx to dose) 1 ea DAILY PRN MISC Per rx protocol 02/07/19 11:15 03/09/19 11:14 Vancomycin HCl 1 gm/Dextrose 275 ml @ 183.708 mls/hr Q12HR@1100,2300 IVPB 02/10/19 11:00 02/15/19 10:59 02/10/19 12:40 Vitamin D (Vitamin D) 400 intlu DAILY ORAL 02/08/19 09:00 03/09/19 08:59 02/10/19 10:07 So Webb DO Feb 10, 2019 18:35
--- NOTE | 2019-02-10 18:37 | NUR ---
NURSE NOTES: Dr. Webb changed Peep to 11.0 at 1830 while assessing patient at the bedside, reviewed ABG and ordered to titrate the Peep every hour until peep 0f 10 is reached, then titrate FIO2. Rt notified of changes made by covering taping machine operator.
--- NOTE | 2019-02-10 19:30 | NUR ---
NURSE NOTES: Dr. Duval updated on patient progress through the day, notified all AFB samples remains pending for TB. no verbal orders given at this time.
--- NOTE | 2019-02-10 19:35 | NUR ---
NURSE NOTES: Received report from Salty ZARATE. Patient on ventilator setting of AC: 30, TV: 600, FIO2: 90% with PEEP of 11 satting 100%. HOB elevated. patient remains sedated using propofol at 40mcg/kg/min, on RASS of -2, Noted with restraints bilaterally for reaching towards ET-tube, skin remains intact around the wrist and has pulses present distally. Airborne precaution maintained and observed. Simon draining with dark scott urine. SCD's on bilateral leg. OGT intact with 40cc residual on Glucerna 1.5 at 20cc/hr goal 35cc/hr. bed alarm on, bed locked and in low position. Will continue plan of care.
--- NOTE | 2019-02-10 19:35 | NUR ---
HAND-OFF: Report given to TESSA Patino.
--- NOTE | 2019-02-10 19:36 | Cardiology Report ---
APPROVED REPORT EKG Measurement Heart [id number] Sinus tachycardia Possible Anterior infarct, age undetermined Left atrial enlargement Abnormal ECG
--- NOTE | 2019-02-10 19:37 | Infectious Diseases Prog Note ---
Assessment/Plan Assessment/Plan A) 1) pneumonia - ? etiology, ? CAP, ? pcp, ? 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, on anti-retroviral treatment 4) rule out TB pna, in isolation 5) pmh noted - hypertension, ckd, anemia, dm, cva, tia, migraines 6) allergies - nkda, sh-negative, fh-nc, mar noted 7) d/w RN P) 1) zosyn, vancomycin, azithromycin, bactrim, diflucan, on steroids 2) check cultures, labs and serology, f/u on bronchoscopy results 3) isolation pending AFB's 4) monitor labs and chest x-ray 5) critical condition, icu supportive care, vent support 6) d/w RN and pharmacy 7) will f/u Subjective Constitutional: Reports: fatigue, other - intubated, on vent, fio2-90 %; Denies : fever Respiratory: Reports: shortness of breath Cardiovascular: Reports: other - no pressors Gastrointestinal/Abdominal: Denies: nausea, vomiting Genitourinary: Reports: other - + smith Neurologic: Reports: weakness, other - sedated Psychiatric: Reports: other - na Skin: Denies: rash Endocrine: Reports: other - na Hematologic: Denies: bleeding Musculoskeletal: Reports: other - na Allergies: Coded Allergies: No Known Allergies (Unverified , 02/05/13) Objective Vital Signs Last 24 Hour Vital Signs Date Time Temp Pulse Resp B/P (MAP) Pulse Ox O2 Delivery O2 Flow Rate FiO2 02/10/19 18:30 83 30 114/59 (77) 100 02/10/19 18:00 85 30 115/58 (77) 100 02/10/19 17:30 85 30 106/62 (77) 100 02/10/19 17:07 84 30 90 02/10/19 17:00 84 30 114/59 (77) 100 02/10/19 16:30 85 30 105/61 (76) 100 02/10/19 16:25 30 109/60 Mechanical Ventilator 90 02/10/19 16:00 98.7 86 30 104/64 (77) 100 02/10/19 16:00 84 02/10/19 16:00 90 02/10/19 15:41 89 30 97 Mechanical Ventilator 100 02/10/19 15:39 83 30 100 Mechanical Ventilator 100 02/10/19 15:38 84 30 90 02/10/19 15:30 84 30 105/61 (76) 100 02/10/19 15:00 30 102/61 Mechanical Ventilator 90 02/10/19 15:00 99.0 86 30 102/61 (75) 100 02/10/19 14:30 88 30 104/62 (76) 100 02/10/19 14:00 86 30 106/63 (77) 100 02/10/19 14:00 30 106/63 Mechanical Ventilator 90 02/10/19 13:30 86 30 106/62 (77) 100 02/10/19 13:00 30 106/63 Mechanical Ventilator 90 02/10/19 13:00 86 30 106/63 (77) 100 02/10/19 12:54 89 30 90 02/10/19 12:48 30 110/68 Mechanical Ventilator 100 02/10/19 12:30 86 30 110/68 (82) 100 02/10/19 12:00 98.1 87 30 95/63 (74) 100 02/10/19 12:00 100 02/10/19 12:00 30 95/63 Mechanical Ventilator 100 02/10/19 12:00 88 02/10/19 11:30 86 30 98/54 (69) 100 02/10/19 11:00 87 29 89/53 (65) 100 02/10/19 11:00 30 86/53 Mechanical Ventilator 100 02/10/19 10:48 95 30 100 02/10/19 10:46 93 30 90 Mechanical Ventilator 100 02/10/19 10:45 90 30 90 Mechanical Ventilator 100 02/10/19 10:30 95 28 115/54 (74) 91 02/10/19 10:10 146/65 02/10/19 10:08 129 146/65 02/10/19 10:08 146/65 02/10/19 10:00 125 31 139/65 (89) 92 02/10/19 10:00 31 146/65 Mechanical Ventilator 100 02/10/19 09:58 100 02/10/19 09:58 100 02/10/19 09:30 123 30 134/62 (86) 63 02/10/19 09:00 130 32 86/65 (72) 75 02/10/19 09:00 34 153/65 Mechanical Ventilator 100 02/10/19 08:57 32 155/71 Mechanical Ventilator 100 02/10/19 08:46 131 30 50 02/10/19 08:30 133 33 172/74 (106) 71 02/10/19 08:00 99.5 138 32 190/81 (117) 77 02/10/19 08:00 127 02/10/19 08:00 100 02/10/19 08:00 31 190/81 Mechanical Ventilator 100 02/10/19 07:30 128 30 172/72 (105) 85 02/10/19 07:28 Mechanical Ventilator 50 02/10/19 07:27 Mechanical Ventilator 50 02/10/19 07:24 133 38 50 02/10/19 07:00 111 31 133/54 (80) 93 02/10/19 07:00 25 136/62 Endotracheal Tube 50 02/10/19 06:00 20 114/50 Endotracheal Tube 50 02/10/19 06:00 87 24 114/50 (71) 100 02/10/19 05:29 90 24 50 70 02/10/19 05:16 24 122/57 Endotracheal Tube 100.0 50 02/10/19 05:15 24 123/57 Endotracheal Tube 50 02/10/19 05:00 98.1 87 24 123/57 (79) 100 02/10/19 05:00 25 123/57 Endotracheal Tube 50 02/10/19 04:00 50 02/10/19 04:00 98.2 87 24 122/57 (78) 100 02/10/19 04:00 81 02/10/19 04:00 24 122/57 Endotracheal Tube 50 02/10/19 04:00 Mechanical Ventilator Mechanical Ventilator 02/10/19 03:43 93 24 98 Mechanical Ventilator 50 02/10/19 03:29 93 24 50 70 02/10/19 03:29 93 24 95 Mechanical Ventilator 50 02/10/19 03:00 92 20 120/57 (78) 97 02/10/19 03:00 24 119/55 Endotracheal Tube 50 02/10/19 02:00 24 119/56 Endotracheal Tube 50 02/10/19 02:00 91 20 119/56 (77) 97 02/10/19 01:20 88 24 50 70 02/10/19 01:06 22 114/54 Endotracheal Tube 100.0 50 02/10/19 01:05 24 113/55 Endotracheal Tube 50 02/10/19 01:00 90 20 113/55 (74) 97 02/10/19 01:00 22 114/54 Endotracheal Tube 50 02/10/19 00:00 88 02/10/19 00:00 50 02/10/19 00:00 24 110/52 Endotracheal Tube 50 02/10/19 00:00 Mechanical Ventilator Mechanical Ventilator 02/10/19 00:00 98.5 87 24 110/52 (71) 100 02/09/19 23:40 94 24 100 Mechanical Ventilator 50 02/09/19 23:32 98.1 02/09/19 23:30 87 24 95 Mechanical Ventilator 50 02/09/19 23:28 87 24 50 70 02/09/19 23:00 89 20 115/55 (75) 94 02/09/19 23:00 20 115/55 Endotracheal Tube 50 02/09/19 22:00 104 24 136/58 (84) 94 02/09/19 22:00 27 136/56 Endotracheal Tube 50 02/09/19 21:56 111 128/75 02/09/19 21:00 20 147/69 Endotracheal Tube 50 02/09/19 21:00 108 24 147/69 (95) 100 02/09/19 20:54 24 146/65 Endotracheal Tube 100.0 50 02/09/19 20:53 30 177/80 Endotracheal Tube 50 02/09/19 20:37 105 24 50 70 02/09/19 20:00 Mechanical Ventilator Mechanical Ventilator 02/09/19 20:00 98.5 99 24 135/60 (85) 100 02/09/19 20:00 24 135/60 Endotracheal Tube 70 02/09/19 20:00 50 02/09/19 20:00 93 02/09/19 19:41 95 24 100 Mechanical Ventilator 50 02/09/19 19:29 92 24 50 70 02/09/19 19:29 92 24 100 Mechanical Ventilator 50 Height (Feet): 6 Height (Inches): 0.00 Weight (Pounds): 215 General Appearance: other - on vent, sedated, no pressors, fio2-90% HEENT: normocephalic, atraumatic, anicteric, no JVD, other - oral - intubated Respiratory/Chest: crackles/rales, rhonchi - bilaterally Cardiovascular: normal rate, regular rhythm, no gallop/murmur, no JVD Abdomen: normal bowel sounds, soft, non tender, no organomegaly, non distended Genitourinary: other - + smith - urine slt cloudy Extremities: no cyanosis Skin: no rash Neurologic/Psychiatric: other - sedated, weak, on vent Lymphatic: no neck adenopathy Musculoskeletal: no effusion Objective Chest x-ray - 02/10/19 - COMPARISON: Chest radiograph on 02/09/2019 FINDINGS: Hardware: Endotracheal tube terminates in the region of the mid thoracic trachea. Enteric tube courses past the diaphragm and out of the field of view. Lungs/pleura: Slightly decreased but persistent patchy consolidations in the right lung. Slightly decreased left perihilar opacities/consolidations. Possible small bilateral pleural effusions. Heart/mediastinum: Stable mild enlargement of the cardiomediastinal silhouette. Soft tissues: Unremarkable. Bones: No acute fracture. Degenerative changes of the visualized right acromioclavicular joint. Degenerative changes of the spine. Upper abdomen: Normal. IMPRESSION: Slightly decreased but persistent patchy consolidations in the right lung. Slightly decreased left perihilar opacities. Findings may represent infectious/inflammatory process and/or pulmonary edema. Possible small bilateral pleural effusions. Microbiology Date/Time Source Procedure Growth Status 02/06/19 14:15 Blood Blood Culture - Preliminary NO GROWTH AFTER 72 HOURS Resulted 02/09/19 14:45 Sputum Expectorated Received 02/06/19 17:10 Rectal Mucosa - Final NO CARBAPENEM-RESISTANT ENTEROBACTERI... Complete Microbiology Date/Time Source Procedure Growth Status 02/09/19 14:45 Sputum Expectorated Received 02/09/19 14:45 Sputum AFB Specimen Processing Tissue - Final Resulted 02/09/19 14:45 Sputum Acid Fast Bacilli Smear - Final Resulted 02/09/19 14:45 Sputum Acid Fast Bacilli Culture Pending Resulted 02/09/19 05:20 Sputum AFB Specimen Processing Tissue - Final Resulted 02/09/19 05:20 Sputum Acid Fast Bacilli Smear - Final Resulted 02/09/19 05:20 Sputum Acid Fast Bacilli Culture Pending Resulted 02/08/19 22:30 Sputum Induced Gram Stain - Final Resulted 02/08/19 22:30 Sputum Induced Sputum Culture Pending Resulted 02/08/19 05:20 Sputum AFB Specimen Processing Tissue - Final Resulted 02/08/19 05:20 Sputum Acid Fast Bacilli Smear - Final Resulted 02/08/19 05:20 Sputum Acid Fast Bacilli Culture Pending Resulted Laboratory Tests Test 02/10/19 04:49 02/10/19 08:00 02/10/19 08:40 02/10/19 13:00 White Blood Count 6.1 K/UL (4.8-10.8) Red Blood Count 2.75 M/UL (4.70-6.10) L Hemoglobin 7.6 G/DL (14.2-18.0) L Hematocrit 23.5 % (42.0-52.0) L Mean Corpuscular Volume 85 FL (80-99) Mean Corpuscular Hemoglobin 27.8 PG (27.0-31.0) Mean Corpuscular Hemoglobin Concent 32.5 G/DL (32.0-36.0) Red Cell Distribution Width 17.9 % (11.6-14.8) H Platelet Count 147 K/UL (150-450) L Mean Platelet Volume 5.3 FL (6.5-10.1) L Neutrophils (%) (Auto) % (45.0-75.0) Lymphocytes (%) (Auto) % (20.0-45.0) Monocytes (%) (Auto) % (1.0-10.0) Eosinophils (%) (Auto) % (0.0-3.0) Basophils (%) (Auto) % (0.0-2.0) Differential Total Cells Counted 100 Neutrophils % (Manual) 70 % (45-75) Lymphocytes % (Manual) 21 % (20-45) Monocytes % (Manual) 9 % (1-10) Eosinophils % (Manual) 0 % (0-3) Basophils % (Manual) 0 % (0-2) Band Neutrophils 0 % (0-8) Platelet Estimate Adequate Platelet Morphology Normal Anisocytosis 1+ Sodium Level 141 MMOL/L (136-145) Potassium Level 4.0 MMOL/L (3.5-5.1) Chloride Level 107 MMOL/L (98-107) Carbon Dioxide Level 23 MMOL/L (21-32) Anion Gap 11 mmol/L (5-15) Blood Urea Nitrogen 30 mg/dL (7-18) H Creatinine 1.9 MG/DL (0.55-1.30) H Estimat Glomerular Filtration Rate 36.5 mL/min (>60) Glucose Level 156 MG/DL (74-106) #H Calcium Level 7.6 MG/DL (8.5-10.1) L Total Bilirubin 0.6 MG/DL (0.2-1.0) Aspartate Amino Transf (AST/SGOT) 49 U/L (15-37) H Alanine Aminotransferase (ALT/SGPT) 44 U/L (12-78) Alkaline Phosphatase 101 U/L (46-116) Troponin I 7.179 ng/mL (0.000-0.056) Total Protein 5.6 G/DL (6.4-8.2) L Albumin 1.8 G/DL (3.4-5.0) L Globulin 3.8 g/dL Albumin/Globulin Ratio 0.5 (1.0-2.7) L Vancomycin Level Trough 14.0 ug/mL (5.0-12.0) H Arterial Blood pH 7.106 (7.350-7.450) 7.367 (7.350-7.450) Arterial Blood Partial Pressure CO2 59.3 mmHg (35.0-45.0) *H 25.9 mmHg (35.0-45.0) L Arterial Blood Partial Pressure O2 50.0 mmHg (75.0-100.0) L 253.3 mmHg (75.0-100.0) H Arterial Blood HCO3 18.2 mmol/L (22.0-26.0) L 14.5 mmol/L (22.0-26.0) *L Arterial Blood Oxygen Saturation 70.7 % (95-100) *L 99.1 % (95-100) Arterial Blood Base Excess -11.3 (-2-2) *L -9.6 (-2-2) *L Benny Test Positive Positive Test 02/10/19 13:18 02/10/19 17:40 Erythrocyte Sedimentation Rate 130 MM/HR (0-20) H C-Reactive Protein, Quantitative 27.8 mg/dL (0.00-0.90) H Anti-Nuclear Antibody Screen Pending c-ANCA Titer Pending p-ANCA Titer Pending Arterial Blood pH 7.418 (7.350-7.450) Arterial Blood Partial Pressure CO2 26.9 mmHg (35.0-45.0) L Arterial Blood Partial Pressure O2 229.9 mmHg (75.0-100.0) H Arterial Blood HCO3 17.0 mmol/L (22.0-26.0) *L Arterial Blood Oxygen Saturation 99.0 % (95-100) Arterial Blood Base Excess -6.5 (-2-2) L Benny Test Positive Current Medications Medications (Trade) Dose Ordered Sig/Marquis Route PRN Reason Start Time Stop Time Status Last Admin Dose Admin Acetaminophen (Tylenol) 650 mg Q4H PRN ORAL Mild Pain (Pain Scale 1-3) 02/07/19 11:15 03/08/19 17:29 02/07/19 23:01 Acetaminophen/ Butalbital/ Caffeine (Fioricet) 1 tab Q8H PRN ORAL For Headache 02/08/19 17:15 03/10/19 17:14 Albuterol/ Ipratropium (Albuterol/ Ipratropium) 3 ml Q4HRT HHN 02/09/19 15:00 02/14/19 14:59 02/10/19 10:45 Alprazolam (Xanax) 0.5 mg Q6H PRN ORAL For Anxiety 02/08/19 20:15 02/15/19 20:14 02/08/19 20:51 Aspirin (Ecotrin) 81 mg DAILY ORAL 02/08/19 09:00 03/09/19 08:59 02/09/19 10:26 Atorvastatin Calcium (Lipitor) 40 mg QHS ORAL 02/08/19 21:00 03/10/19 20:59 02/09/19 21:55 Azithromycin 250 mg/Sodium Chloride 275 ml @ 275 mls/hr DAILY IV 02/08/19 09:00 02/14/19 08:59 02/10/19 10:05 Bisacodyl (Dulcolax) 5 mg DAILYPRN PRN ORAL Constipation 02/08/19 17:15 03/10/19 17:14 Cetirizine HCl (ZyrTEC) 10 mg DAILYPRN PRN ORAL Itching 02/07/19 11:30 03/09/19 11:29 Dextrose (Dextrose 50%) 25 ml Q30M PRN IV Hypoglycemia 02/10/19 08:30 03/12/19 08:29 Dextrose (Dextrose 50%) 50 ml Q30M PRN IV Hypoglycemia 02/10/19 08:30 03/12/19 08:29 Docusate Sodium (Colace) 100 mg BID GT 02/10/19 09:00 03/12/19 08:59 02/10/19 17:41 Duloxetine HCl (Cymbalta) 90 mg DAILY ORAL 02/08/19 09:00 03/09/19 08:59 02/10/19 10:08 Enoxaparin Sodium (Lovenox) 40 mg Q24H SUBQ 02/07/19 21:00 03/08/19 20:59 02/08/19 20:54 EZETIMIBE (Zetia) 10 mg BEDTIME ORAL 02/07/19 21:00 03/08/19 20:59 02/09/19 21:56 Famotidine (Pepcid) 20 mg BID ORAL 02/07/19 18:00 03/08/19 19:59 02/10/19 17:40 Ferrous Sulfate (Feosol) 325 mg THREE TIMES A DAY ORAL 02/07/19 13:00 03/09/19 08:59 02/10/19 17:41 Fluconazole/ Sodium Chloride 100 ml @ 100 mls/hr Q24H IV 02/09/19 18:00 02/16/19 17:59 02/10/19 17:40 Folic Acid (Folate) 1 mg BID ORAL 02/07/19 18:00 03/09/19 08:59 02/10/19 17:41 Furosemide (Lasix) 20 mg ONCE IV 02/10/19 20:00 02/10/19 21:00 Guaifenesin (Mucinex ER) 600 mg TWICE A DAY ORAL 02/07/19 18:00 03/09/19 08:59 02/10/19 17:41 Hydralazine HCl (Apresoline) 25 mg Q6H PRN ORAL SBP > 160mmHg 02/07/19 11:15 03/08/19 11:14 02/08/19 15:32 Insulin Aspart (NovoLOG) EVERY 4 HOURS SUBQ 02/10/19 09:00 03/08/19 12:29 02/10/19 17:45 Insulin Detemir (Levemir) 8 units BID SUBQ 02/10/19 09:00 03/12/19 08:59 02/10/19 17:44 Isosorbide Mononitrate (Imdur) 30 mg DAILY ORAL 02/08/19 09:00 03/09/19 08:59 02/10/19 10:08 Losartan Potassium (Cozaar) 100 mg DAILY ORAL 02/08/19 09:00 03/09/19 08:59 02/10/19 10:10 Magnesium Hydroxide (Mom) 30 ml DAILYPRN PRN ORAL Constipation 02/08/19 15:30 03/10/19 15:29 02/08/19 16:08 Methylprednisolone Sodium Succinate (Solu-MEDROL) 40 mg EVERY 12 HOURS IVP 02/10/19 21:00 03/12/19 20:59 Metoprolol Tartrate (Lopressor) 100 mg Q12HR ORAL 02/07/19 21:00 03/08/19 20:59 02/10/19 10:08 Morphine Sulfate (Morphine Sulfate) 2 mg Q2H PRN IVP Moderate Pain (Pain Scale 4-6) 02/07/19 16:15 02/14/19 16:14 02/07/19 21:16 Morphine Sulfate (Morphine Sulfate) 4 mg Q2H PRN IVP Severe Pain (Pain Scale 7-10) 02/07/19 16:15 02/14/19 16:14 02/09/19 23:02 Nitroglycerin (Ntg) 0.4 mg Q5M PRN SL Prn Chest Pain 02/07/19 11:00 03/08/19 17:29 02/08/19 07:42 Ondansetron HCl (Zofran) 4 mg Q6H PRN IVP Nausea & Vomiting 02/07/19 11:15 03/08/19 11:14 02/09/19 00:58 Patient Own Medication (Patient's Own Med) 1 ea BID ORAL 02/07/19 18:00 03/09/19 17:59 02/10/19 17:40 Patient Own Medication (Patient's Own Med) 1 ea DAILY ORAL 02/08/19 09:00 03/10/19 08:59 02/10/19 10:06 Patient Own Medication (Patient's Own Med) 2 ea DAILY ORAL 02/08/19 09:00 03/10/19 08:59 02/10/19 10:06 Piperacillin Sod/ Tazobactam Sod 3.375 gm/Sodium Chloride 110 ml @ 27.5 mls/hr EVERY 8 HOURS IVPB 02/07/19 14:00 02/13/19 21:59 02/10/19 15:10 Polyethylene Glycol (Miralax) 17 gm BEDTIME ORAL 02/08/19 21:00 03/10/19 20:59 02/09/19 21:55 Propofol 100 ml @ 0 mls/hr Q24H IV 02/09/19 07:47 02/11/19 07:46 02/10/19 16:25 Sodium Chloride 1,000 ml @ 100 mls/hr Q10H IVLG 02/07/19 11:00 03/08/19 18:17 02/10/19 10:05 Vitamin D (Vitamin D) 400 intlu DAILY ORAL 02/08/19 09:00 03/09/19 08:59 02/10/19 10:07 Russ Tony MD Feb 10, 2019 19:37
--- NOTE | 2019-02-10 19:49 | NUR ---
RESPIRATORY NOTE: Received pt. on 840 vent. Vent settings are: A/C rate of 30, Vt 600, FI02 90%, PEEP +11. No respiratory distress noted, pt. sP02 @ 100%. Ambu bag @ BS. Vent plugged on red outlet. Will continue to monitor pt.
--- NOTE | 2019-02-10 19:53 | NUR ---
RESPIRATORY NOTE: PEEP titrated from +11 to +10 per doctor's order. TESSA Pond, TESSA Patino are aware of the changes.
[2019-02-10] MEDS: Miralax 17gm pkt ORAL SCH (20:44)
[2019-02-10] MEDS: Atorvastatin 20mg tab ORAL SCH (20:45)
[2019-02-10] MEDS: Solu-MEDROL 40mg Inj IVP SCH (20:45)
[2019-02-10] MEDS: Enoxaparin 40mg Inj SUBQ SCH (21:00)
--- NOTE | 2019-02-10 21:35 | NUR ---
NURSE NOTES: Titrate Peep to [address] Webb will continue to monitor the pt.
--- NOTE | 2019-02-10 22:43 | NUR ---
NURSE NOTES: Titrate Fi02 from 75% to 60% satting 96%. will continue to monitor patient. Addendum: 02/11/19 at 0616 by SAJI MENDOZA RN 90% to 75%
--- NOTE | 2019-02-10 23:30 | NUR ---
NURSE NOTES: Patient on ventilator setting of AC: 30, TV: 600, FIO2: 75% with PEEP of 10 satting 100%. HOB elevated. patient remains sedated using propofol at 40mcg/kg/min, on RASS of -2, Noted with restraints bilaterally for reaching towards ET-tube, skin remains intact around the wrist and has pulses present distally. Airborne precaution maintained and observed. Simon draining with dark scott urine. SCD's on bilateral leg. OGT intact with 40cc residual on Glucerna 1.5 at 20cc/hr goal 35cc/hr. bed alarm on, bed locked and in low position. Will continue plan of care.
[2019-02-11] VITALS (40 sets, daily range): BP systolic 111–190; BP diastolic 58–96
[2019-02-11] MEDS ORDERED: SULFAMETHOXAZOLE IV SCH ×4
[2019-02-11] MEDS ORDERED: D5W IV SCH ×4
[2019-02-11] MEDS ORDERED: TRIMETHOPRIM IV SCH ×4
[2019-02-11] MEDS: NovoLOG Insulin Flexpen SUBQ SCH ×7 (01:06→17:00)
--- NOTE | 2019-02-11 01:30 | NUR ---
NURSE NOTES: patient remains sedated using propofol at 40mcg/kg/min, on RASS of -2, Noted with restraints bilaterally for reaching towards ET-tube, skin remains intact around the wrist and has pulses present distally. Airborne precaution maintained and observed. Simon draining with dark scott urine. SCD's on bilateral leg. OGT intact with 40cc residual on Glucerna 1.5 at 20cc/hr goal 35cc/hr. bed alarm on, bed locked and in low position. Will continue plan of care.
--- NOTE | 2019-02-11 01:35 | NUR ---
NURSE NOTES: Bed bath given tolerated we..Patient on ventilator setting of AC: 30, TV: 600, FIO2: 60% with PEEP of 10 satting 95-96%. Turned and repositioned Q2HOUR
--- NOTE | 2019-02-11 03:35 | NUR ---
NURSE NOTES: patient remains sedated using propofol at 40mcg/kg/min, on RASS of -2, Noted with restraints bilaterally for reaching towards ET-tube, skin remains intact around the wrist and has pulses present distally. Airborne precaution maintained and observed. Simon draining with dark scott urine. SCD's on bilateral leg. OGT intact with 40cc residual on Glucerna 1.5 at 20cc/hr goal 35cc/hr. Oral care provided. bed alarm on, bed locked and in low position. Will continue plan of care.
[2019-02-11] MEDS: Albuterol/Ipratropium 3ml neb HHN SCH ×6 (03:43→23:29)
[2019-02-11] MEDS: Piperacillin/Tazobactam 3.375 GM in NS 110 ML IVPB SCH (05:08)
--- NOTE | 2019-02-11 05:10 | NUR ---
NURSE NOTES: Patient blood glucose 400mg/dl with 12 units NOVOLOG sliding scale, no s/s of hypo/hyperglycemia. Skin warm and dry to touch. NO fever Temp 98.8 axillary. Continue on sedation Propofol 40mcg/kg/min RASS score of -2. Repositioned. Comfort measure provided. Airborne precaution maintained and observed.
[2019-02-11 06:31] LABS: HEMOGLOBIN 8.2 G/DL (14.2-18.0); MEAN CORPUSCULAR VOLUME 85 FL (80-99); PLATELET COUNT 153 K/UL (150-450); RED BLOOD COUNT 2.96 M/UL (4.70-6.10); RED CELL DISTRIBUTION WIDTH 17.8 % (11.6-14.8); WHITE BLOOD COUNT 5.8 K/UL (4.8-10.8)
--- NOTE | 2019-02-11 06:43 | General Progress Note ---
Assessment/Plan Problem List: (1) ISH (acute kidney injury) ICD Codes: N17.9 - Acute kidney failure, unspecified SNOMED: 98973628 (2) Uncontrolled type 2 diabetes mellitus with chronic kidney disease ICD Codes: E11.22 - Type 2 diabetes mellitus with diabetic chronic kidney disease; E11.65 - Type 2 diabetes mellitus with hyperglycemia SNOMED: 58293841, 151286865, 901232793 (3) HIV disease ICD Codes: B20 - Human immunodeficiency virus [HIV] disease SNOMED: 38718295 (4) Respiratory distress ICD Codes: R06.03 - Acute respiratory distress SNOMED: 436169348 Status: stable Assessment/Plan: glucose values still elevated despite adjusted insulin orders - add Novolog 6 units every 4 hours - continue Levemir 8 units bid - continue NISS every 4 hours Subjective ROS Limited/Unobtainable: Yes Allergies: Coded Allergies: No Known Allergies (Unverified , 02/05/13) Subjective events noted intubated in ICU Objective Last 24 Hour Vital Signs Date Time Temp Pulse Resp B/P (MAP) Pulse Ox O2 Delivery O2 Flow Rate FiO2 02/11/19 06:00 30 130/59 Endotracheal Tube 50 02/11/19 06:00 80 30 130/59 (82) 94 02/11/19 05:07 30 130/62 Endotracheal Tube 100.0 50 02/11/19 05:06 30 130/62 Endotracheal Tube 50 02/11/19 05:00 80 30 130/62 (84) 94 02/11/19 04:43 80 30 50 02/11/19 04:00 80 02/11/19 04:00 30 123/55 Endotracheal Tube 50 02/11/19 04:00 98.8 81 30 128/64 (85) 94 02/11/19 04:00 50 02/11/19 03:53 80 30 100 Mechanical Ventilator 50 02/11/19 03:43 77 30 50 02/11/19 03:43 77 30 94 Mechanical Ventilator 50 02/11/19 03:00 30 121/60 Endotracheal Tube 60 02/11/19 03:00 77 30 121/60 (80) 95 02/11/19 02:00 77 30 123/61 (81) 95 02/11/19 02:00 30 123/61 Endotracheal Tube 60 02/11/19 01:02 80 30 60 02/11/19 01:00 78 30 121/62 (81) 100 02/11/19 01:00 30 128/66 Endotracheal Tube 75 02/11/19 00:57 30 111/58 Endotracheal Tube 100.0 75 02/11/19 00:00 83 02/11/19 00:00 75 02/11/19 00:00 30 111/58 Endotracheal Tube 75 02/11/19 00:00 98.8 81 30 111/58 (75) 100 02/10/19 23:00 78 30 105/64 (78) 100 02/10/19 23:00 30 105/64 Endotracheal Tube 75 02/10/19 22:55 75 30 99 Mechanical Ventilator 75 02/10/19 22:43 75 30 75 02/10/19 22:42 75 30 99 Mechanical Ventilator 75 02/10/19 22:00 83 30 113/58 (76) 100 02/10/19 22:00 30 107/63 Endotracheal Tube 90 02/10/19 21:30 83 31 90 02/10/19 21:30 83 30 124/60 (81) 100 02/10/19 21:00 30 127/60 Endotracheal Tube 90 02/10/19 21:00 83 30 127/60 (82) 100 02/10/19 20:45 80 126/60 02/10/19 20:41 30 126/60 Endotracheal Tube 100.0 90 02/10/19 20:40 30 125/61 Endotracheal Tube 90 02/10/19 20:30 82 30 125/61 (82) 100 02/10/19 20:00 79 02/10/19 20:00 90 02/10/19 20:00 98.2 82 30 126/60 (82) 100 02/10/19 20:00 30 126/60 Endotracheal Tube 90 02/10/19 19:53 80 30 100 Mechanical Ventilator 90 02/10/19 19:47 80 30 100 Mechanical Ventilator 90 02/10/19 19:44 80 30 90 02/10/19 19:30 80 30 117/59 (78) 100 02/10/19 19:00 30 115/62 Endotracheal Tube 90 02/10/19 19:00 82 30 115/62 (79) 100 02/10/19 18:30 83 30 114/59 (77) 100 02/10/19 18:00 85 30 115/58 (77) 100 02/10/19 18:00 30 115/58 Mechanical Ventilator 90 02/10/19 17:30 85 30 106/62 (77) 100 02/10/19 17:07 84 30 90 02/10/19 17:00 84 30 114/59 (77) 100 02/10/19 17:00 30 114/59 Mechanical Ventilator 90 02/10/19 16:30 85 30 105/61 (76) 100 02/10/19 16:25 30 109/60 Mechanical Ventilator 90 02/10/19 16:00 98.7 86 30 104/64 (77) 100 02/10/19 16:00 84 02/10/19 16:00 Mechanical Ventilator Mechanical Ventilator 02/10/19 16:00 30 104/64 Mechanical Ventilator 90 02/10/19 16:00 90 02/10/19 15:41 89 30 97 Mechanical Ventilator 100 02/10/19 15:39 83 30 100 Mechanical Ventilator 100 02/10/19 15:38 84 30 90 02/10/19 15:30 84 30 105/61 (76) 100 02/10/19 15:00 30 102/61 Mechanical Ventilator 90 02/10/19 15:00 99.0 86 30 102/61 (75) 100 02/10/19 14:30 88 30 104/62 (76) 100 02/10/19 14:00 86 30 106/63 (77) 100 02/10/19 14:00 30 106/63 Mechanical Ventilator 90 02/10/19 13:30 86 30 106/62 (77) 100 02/10/19 13:00 30 106/63 Mechanical Ventilator 90 02/10/19 13:00 86 30 106/63 (77) 100 02/10/19 12:54 89 30 90 02/10/19 12:48 30 110/68 Mechanical Ventilator 100 02/10/19 12:30 86 30 110/68 (82) 100 02/10/19 12:00 98.1 87 30 95/63 (74) 100 02/10/19 12:00 100 02/10/19 12:00 30 95/63 Mechanical Ventilator 100 02/10/19 12:00 Mechanical Ventilator Mechanical Ventilator 02/10/19 12:00 88 02/10/19 11:30 86 30 98/54 (69) 100 02/10/19 11:00 87 29 89/53 (65) 100 02/10/19 11:00 30 86/53 Mechanical Ventilator 100 02/10/19 10:48 95 30 100 02/10/19 10:46 93 30 90 Mechanical Ventilator 100 02/10/19 10:45 90 30 90 Mechanical Ventilator 100 02/10/19 10:30 95 28 115/54 (74) 91 02/10/19 10:10 146/65 02/10/19 10:08 129 146/65 02/10/19 10:08 146/65 02/10/19 10:00 125 31 139/65 (89) 92 02/10/19 10:00 31 146/65 Mechanical Ventilator 100 02/10/19 09:58 100 02/10/19 09:58 100 02/10/19 09:30 123 30 134/62 (86) 63 02/10/19 09:00 130 32 86/65 (72) 75 02/10/19 09:00 34 153/65 Mechanical Ventilator 100 02/10/19 08:57 32 155/71 Mechanical Ventilator 100 02/10/19 08:46 131 30 50 02/10/19 08:30 133 33 172/74 (106) 71 02/10/19 08:00 99.5 138 32 190/81 (117) 77 02/10/19 08:00 Mechanical Ventilator Mechanical Ventilator 02/10/19 08:00 127 02/10/19 08:00 100 02/10/19 08:00 31 190/81 Mechanical Ventilator 100 02/10/19 07:30 128 30 172/72 (105) 85 02/10/19 07:28 Mechanical Ventilator 50 02/10/19 07:27 Mechanical Ventilator 50 02/10/19 07:24 133 38 50 02/10/19 07:00 111 31 133/54 (80) 93 02/10/19 07:00 25 136/62 Endotracheal Tube 50 Intake and Output 02/10/19 02/11/19 19:00 07:00 Intake Total 2754.530 ml 2213.525 ml Output Total 335 ml 25 ml Balance 2419.530 ml 2188.525 ml Free Water 250 ml 100 ml IV Total 2124.530 ml 1823.525 ml Tube Feeding 100 ml 230 ml Blood Product 250 ml Other 30 ml 60 ml Output Urine Total 335 ml 25 ml # Voids 515 Laboratory Tests 02/10/19 08:00: Vancomycin Level Trough 14.0H 02/10/19 08:40: Arterial Blood pH 7.106*L, Arterial Blood Partial Pressure CO2 59.3*H, Arterial Blood Partial Pressure O2 50.0L, Arterial Blood HCO3 18.2L, Arterial Blood Oxygen Saturation 70.7*L, Arterial Blood Base Excess -11.3*L, Benny Test Positive 02/10/19 13:00: Arterial Blood pH 7.367, Arterial Blood Partial Pressure CO2 25.9L, Arterial Blood Partial Pressure O2 253.3H, Arterial Blood HCO3 14.5*L, Arterial Blood Oxygen Saturation 99.1, Arterial Blood Base Excess -9.6*L, Benny Test Positive 02/10/19 13:18: Erythrocyte Sedimentation Rate 130H, C-Reactive Protein, Quantitative 27.8H, Anti-Nuclear Antibody Screen [Pending], c-ANCA Titer [Pending], p-ANCA Titer [ Pending] 02/10/19 17:40: Arterial Blood pH 7.418, Arterial Blood Partial Pressure CO2 26.9L, Arterial Blood Partial Pressure O2 229.9H, Arterial Blood HCO3 17.0*L, Arterial Blood Oxygen Saturation 99.0, Arterial Blood Base Excess -6.5L, Benny Test Positive 02/11/19 06:10: White Blood Count 5.8, Red Blood Count 2.96L, Hemoglobin 8.2L, Hematocrit 25.0L , Mean Corpuscular Volume 85, Mean Corpuscular Hemoglobin 27.6, Mean Corpuscular Hemoglobin Concent 32.6, Red Cell Distribution Width 17.8H, Platelet Count 153, Mean Platelet Volume 5.7L, Neutrophils (%) (Auto) , Lymphocytes (%) (Auto) , Monocytes (%) (Auto) , Eosinophils (%) (Auto) , Basophils (%) (Auto) , Neutrophils % (Manual) [Pending], Lymphocytes % (Manual) [Pending], Platelet Estimate [Pending], Platelet Morphology [Pending], Reticulocyte Count [Pending], Prothrombin Time [Pending], Prothromb Time International Ratio [Pending], Sodium Level [Pending], Potassium Level [Pending] , Chloride Level [Pending], Carbon Dioxide Level [Pending], Blood Urea Nitrogen [Pending], Creatinine [Pending], Estimat Glomerular Filtration Rate [Pending], Glucose Level [Pending], Calcium Level [Pending], Iron Level [Pending], Unsaturated Iron Binding [Pending], Ferritin [Pending], Total Bilirubin [Pending ], Direct Bilirubin [Pending], Lactate Dehydrogenase [Pending], Troponin I [ Pending], Pro-B-Type Natriuretic Peptide [Pending], Carcinoembryonic Antigen [ Pending], Vitamin B12 Level [Pending], Thyroid Stimulating Hormone (TSH) [ Pending], Hepatitis A IgM Antibody [Pending], Hepatitis B Surface Antigen [ Pending], Hepatitis B Core IgM Antibody [Pending], Hepatitis C Antibody [Pending ], HIV (1&2) Antibody Rapid [Pending] Height (Feet): 6 Height (Inches): 0.00 Weight (Pounds): 215 General Appearance: lethargic, other - intubated EENT: other - ETT Neck: normal alignment Cardiovascular: normal rate Respiratory/Chest: decreased breath sounds Abdomen: normal bowel sounds Pelvis: normal external exam Edema: 1+ Arm (L), 1+ Arm (R), 1+ Leg (L), 1+ Leg (R), 1+ Pedal (L), 1+ Pedal ( R), 1+ Generalized Objective Item Value Date Time Bedside Blood Glucose 400 mg/dl H 02/11/19 0504 Bedside Blood Glucose 332 mg/dl H 02/11/19 0106 Bedside Blood Glucose 282 mg/dl H 02/10/19 2046 Bedside Blood Glucose 284 mg/dl H 02/10/19 1745 Bedside Blood Glucose 251 mg/dl H 02/10/19 1300 Bedside Blood Glucose 263 mg/dl H 02/10/19 1037 Carlito Nichols MD Feb 11, 2019 06:43
--- NOTE | 2019-02-11 06:44 | NUR ---
NURSE NOTES: Seen and examined by Dr. Nichols with new order noted and carried.
[2019-02-11 06:47] LABS: ANION GAP 17 mmol/L (5-15); BLOOD UREA NITROGEN 45 mg/dL (7-18); CALCIUM 7.9 MG/DL (8.5-10.1); CARBON DIOXIDE 18 MMOL/L (21-32); CHLORIDE 106 MMOL/L (98-107); CREATININE 3.3 MG/DL (0.55-1.30); POTASSIUM 4.1 MMOL/L (3.5-5.1); SODIUM 140 MMOL/L (136-145)
[2019-02-11 06:52] LABS: BILIRUBIN,DIRECT 0.4 MG/DL (0.0-0.3); BILIRUBIN,TOTAL 0.7 MG/DL (0.2-1.0); FERRITIN 182 NG/ML (8-388); LACTATE DEHYDROGENASE 311 U/L (81-234)
--- NOTE | 2019-02-11 07:15 | NUR ---
RESPIRATORY NOTE: Patient received mechanically ventilated on PB 840 with current ordered vent settings. Patient is orally intubated with an ETT tube size 7.5 with 25cm at the lip line that is secured with an anchor fast. vent alarms are functional and audible. There is an ambu bag available at the bedside and the vent is connected to a red outlet. Will continue to monitor.
--- NOTE | 2019-02-11 07:30 | NUR ---
HAND-OFF: Report given to Boris ZARATE.
--- NOTE | 2019-02-11 07:35 | NUR ---
NURSE NOTES: Received report from Carey ZARATE. pt sedated, responds to tactile stimuli. pupils 3mm sluggish. Patient on ventilator setting of AC: 30, TV: 600, FIO2: 50% with PEEP of 10 satting 100%. abdomen large, firm. hypoactive bowel sounds. no bm this shift. OGT intact, no residual on Glucerna 1.5 at 30cc/hr goal 35cc/hr. bladder flat. Simon draining with dark scott urine, cloudy.HOB elevated. patient on propofol at 40mcg/kg/min, on RASS of -2, Noted with restraints bilaterally. skin intact , bilateral radial pulses present . Airborne precaution in place. SCD's on. Bed alarm on, bed locked and in low position. Will continue plan of care.
[2019-02-11 07:37] LABS: % IRON SATURATION 5 % (15-50); IRON 6 ug/dL (50-175); TOTAL IRON BINDING CAPACITY 126 ug/dL (250-450)
--- NOTE | 2019-02-11 07:46 | NUR ---
NURSE NOTES: called pharmacy for additional propofol vials. pt running at 40mcg. response with lip smacking and head shaking to tactile stimuli.
--- NOTE | 2019-02-11 08:35 | NUR ---
NURSE NOTES: CALLED MD CANTOR FOR RENEWAL PROPOFOL ORDER. RECEIVED ORDER TO RENEW AND OBTAIN TRIGLYCERIDE LEVEL.
--- NOTE | 2019-02-11 09:15 | NUR ---
NURSE NOTES: RADIOLOGY HERE TO DO CXR. PT ATTEMPT TO PULL ET-TUBE AND G-TUBE. PT RESTRAINTS SECURED. WILL MONITOR PT CLOSELY.
--- NOTE | 2019-02-11 09:41 | Diagnostic Imaging Report ---
EXAM: XR Chest, 1 View CLINICAL HISTORY: [facility] [place] TECHNIQUE: Frontal view of the chest. COMPARISON: Chest x-ray dated 02/10/19 FINDINGS: Lungs: No significant change in the scattered interstitial and alveolar opacities in bilateral lungs. Pleural space: Possible small bilateral pleural effusions, unchanged. Heart: Unremarkable. No cardiomegaly. Mediastinum: Unremarkable. Bones/joints: Unremarkable. Tubes, lines and devices: Endotracheal tube tip is 5.9 cm above the christal. Telemetry leads overlie the thorax. IMPRESSION: 1. No significant change in the interstitial and alveolar opacities in bilateral lungs. 2. Possible small bilateral pleural effusions, unchanged.
[2019-02-11] MEDS: Docusate 100mg/10ml Liq GT SCH ×2 (09:46→17:40)
[2019-02-11] MEDS: guaiFENesin ER 600mg tab ORAL SCH ×2 (09:47→17:40)
[2019-02-11] MEDS: Solu-MEDROL 40mg Inj IVP SCH ×2 (09:47→20:36)
[2019-02-11] MEDS: Azithromycin 250 MG in NS 275 ML IV SCH (09:47)
[2019-02-11] MEDS: Aspirin EC 81mg tab ORAL SCH (09:48)
[2019-02-11] MEDS: Vitamin D 400 INTLU TAB ORAL SCH (09:48)
[2019-02-11] MEDS: DULoxetine 30mg cap ORAL SCH (09:50)
[2019-02-11] MEDS: Imdur 30mg tab ORAL SCH (09:51)
[2019-02-11] MEDS: Losartan 50mg tab ORAL SCH (09:52)
[2019-02-11] MEDS: RALTEGRAVIR 400 MG ORAL SCH ×2 (09:53→17:41)
[2019-02-11] MEDS: TENOFOVIR DISOPROXIL FUMARATE 300 MG ORAL SCH (09:53)
[2019-02-11] MEDS: ETRAVIRINE 200 MG ORAL SCH (09:54)
--- NOTE | 2019-02-11 10:15 | NUR ---
NURSE NOTES: CALLED AND EFT MESSAGE FOR MD DAILEY TO CALL REGARDING ABG AND TRIGLYCERIDE LEVEL. AWAITNG CALL BACK.
[2019-02-11] MEDS: Levemir Flexpen SUBQ SCH ×2 (10:19→17:49)
--- NOTE | 2019-02-11 10:49 | NUR ---
NURSE NOTES: CALLED MD CANTOR, REGARDING ABG PH 7.422, CO2 24.0, 02 76.3, HC03 15.3, 02 SAT 94, BASE EXCESS -7.9. TRIGLYCERIDES 194. NO NEW ORDER , CAN DECREASE RR TO 24.
--- NOTE | 2019-02-11 11:25 | NUR ---
NURSE NOTES: SECOND CALL TO MD DAILEY CONTACT TO REPORT ABG AND TRIGLYCERIDE LEVEL, INFORMED COVERING FOR SAKSHI. AWAITING CALL BACK
--- NOTE | 2019-02-11 13:00 | NUR ---
NURSE NOTES: pt cleaned and repositioned, oral care provided, accu check 393. coverage given per emar.
[2019-02-11] MEDS ORDERED: NS 275ml ONE ×3 (13:15→15:50)
[2019-02-11] MEDS ORDERED: Tubing Blood Filter IV ONE (13:15)
[2019-02-11] MEDS ORDERED: Tubing IV Secondary IV ONE (13:16)
[2019-02-11] MEDS ORDERED: Sterile Water Irrig 1000ml IRRIG ONE (13:16)
[2019-02-11] MEDS: Morphine Sulfate 2mg/ml Inj(IV/IM USE ONLY) IVP PRN (13:36)
--- NOTE | 2019-02-11 13:36 | NUR ---
NURSE NOTES: morphine 1mg ivp, given for pain pt found in bed grimace, kicking lower extremities, whimpering, diaphoretic, flacc score 9/6/10. will continue to monitor pt.
[2019-02-11] MEDS: SULFAMETHOXAZOLE IV SCH (13:41)
[2019-02-11] MEDS: D5W IV SCH (13:41)
[2019-02-11] MEDS: TRIMETHOPRIM IV SCH (13:41)
--- NOTE | 2019-02-11 14:37 | Hematology/Onc Progress Note ---
Assessment/Plan Assessment/Plan ASSESSMENT AND RECOMMENDATIONS # Anemia of chronic disease due to underlying chronic medical issues, multifactorial --> Anemia workup has been reviewed. Ferritin 182 --> No evidence of hemolysis is noted, peripheral smear has been reviewed. --> Hgb goal >7. Transfuse prn. --> Epogen or iron at this time is not particularly indicated --> Medications have been reviewed --> low threshold for gi evaluation in case has occult + --> bone marrow biopsy is not indicated given the other more likely causes --> Blood tx: 1 unit on 02/10/19, --> Hgb trend: 02/24-->8.2 # Thrombocytopenia - potential causes multifactorial, likely related to HIV status --> Hep panel pending and HIV confirmed positive --> US abd to evaluate for cirrhosis and hsm ordered --> Peripheral smear ordered to evaluate for blasts /schistocytes --> abx and other meds have been reviewed --> ok for ppx if plt >50k w/ either heparin or lovenox --> Transfuse if Plt < 20k and fever, or if Plt < 10k without fever --> Plt trend: 153--> # Multilobar pneumonia in patient with HIV. Recs per ID. --> Broad sp atbx started. Continue Zosyn, Vancomycin and Azithromycin --> Droplet precaution # Hypoxemic respiratory failure. Pulm is following, appreciate recs. --> Bipap as needed, transition to O2 via NC when able --> Due to pneumonia, on abx # Chest pain. 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 --> Trend troponin x3 --> NGT prn # HIV. --> Continue HARRT --> VL is undetectable per patient report. # HTN --> Resume home medication # DVT and GI ppx The time the note is entered does not reflect the time the patient was examined. I greatly appreciate the consultation. Subjective ROS Limited/Unobtainable: Yes Hematologic/Lymphatic: Reports: anemia Allergies: Coded Allergies: No Known Allergies (Unverified , 02/05/13) Subjective 02/11: Hgb yesterday was 7.6, s/p 1 unit prbc. Current hgb at 8.2. Pt attempted to pull out tubes per nursing team, soft restraints applied. Objective Objective Current Medications Medications (Trade) Dose Ordered Sig/Marquis Route PRN Reason Start Time Stop Time Status Last Admin Dose Admin Acetaminophen (Tylenol) 650 mg Q4H PRN ORAL Mild Pain (Pain Scale 1-3) 02/07/19 11:15 03/08/19 17:29 02/07/19 23:01 Acetaminophen/ Butalbital/ Caffeine (Fioricet) 1 tab Q8H PRN ORAL For Headache 02/08/19 17:15 03/10/19 17:14 Albuterol/ Ipratropium (Albuterol/ Ipratropium) 3 ml Q4HRT HHN 02/09/19 15:00 02/14/19 14:59 02/11/19 10:57 Alprazolam (Xanax) 0.5 mg Q6H PRN ORAL For Anxiety 02/08/19 20:15 02/15/19 20:14 02/08/19 20:51 Aspirin (Ecotrin) 81 mg DAILY ORAL 02/08/19 09:00 03/09/19 08:59 02/11/19 09:48 Atorvastatin Calcium (Lipitor) 40 mg QHS ORAL 02/08/19 21:00 03/10/19 20:59 02/10/19 20:45 Azithromycin 250 mg/Sodium Chloride 275 ml @ 275 mls/hr DAILY IV 02/08/19 09:00 02/14/19 08:59 02/11/19 09:47 Bisacodyl (Dulcolax) 5 mg DAILYPRN PRN ORAL Constipation 02/08/19 17:15 03/10/19 17:14 Cetirizine HCl (ZyrTEC) 10 mg DAILYPRN PRN ORAL Itching 02/07/19 11:30 03/09/19 11:29 Dextrose (Dextrose 50%) 25 ml Q30M PRN IV Hypoglycemia 02/10/19 08:30 03/12/19 08:29 Dextrose (Dextrose 50%) 25 ml Q30M PRN IV Hypoglycemia 02/11/19 06:45 03/13/19 06:44 Dextrose (Dextrose 50%) 50 ml Q30M PRN IV Hypoglycemia 02/10/19 08:30 03/12/19 08:29 Dextrose (Dextrose 50%) 50 ml Q30M PRN IV Hypoglycemia 02/11/19 06:45 03/13/19 06:44 Docusate Sodium (Colace) 100 mg BID GT 02/10/19 09:00 03/12/19 08:59 02/11/19 09:46 Duloxetine HCl (Cymbalta) 90 mg DAILY ORAL 02/08/19 09:00 03/09/19 08:59 02/11/19 09:50 Enoxaparin Sodium (Lovenox) 40 mg Q24H SUBQ 02/07/19 21:00 03/08/19 20:59 02/08/19 20:54 EZETIMIBE (Zetia) 10 mg BEDTIME ORAL 02/07/19 21:00 03/08/19 20:59 02/10/19 20:45 Famotidine (Pepcid) 20 mg BID ORAL 02/07/19 18:00 03/08/19 19:59 02/11/19 09:49 Ferrous Sulfate (Feosol) 325 mg THREE TIMES A DAY ORAL 02/07/19 13:00 03/09/19 08:59 02/11/19 13:41 Fluconazole/ Sodium Chloride 100 ml @ 100 mls/hr Q24H IV 02/09/19 18:00 02/16/19 17:59 02/10/19 17:40 Folic Acid (Folate) 1 mg BID ORAL 02/07/19 18:00 03/09/19 08:59 02/11/19 09:48 Guaifenesin (Mucinex ER) 600 mg TWICE A DAY ORAL 02/07/19 18:00 03/09/19 08:59 02/11/19 09:47 Hydralazine HCl (Apresoline) 25 mg Q6H PRN ORAL SBP > 160mmHg 02/07/19 11:15 03/08/19 11:14 02/08/19 15:32 Insulin Aspart (NovoLOG) EVERY 4 HOURS SUBQ 02/10/19 09:00 03/08/19 12:29 02/11/19 13:49 Insulin Aspart (NovoLOG) 6 units EVERY 4 HOURS SUBQ 02/11/19 09:00 03/13/19 08:59 02/11/19 13:50 Insulin Detemir (Levemir) 8 units BID SUBQ 02/10/19 09:00 03/12/19 08:59 02/11/19 10:19 Isosorbide Mononitrate (Imdur) 30 mg DAILY ORAL 02/08/19 09:00 03/09/19 08:59 02/11/19 09:51 Losartan Potassium (Cozaar) 100 mg DAILY ORAL 02/08/19 09:00 03/09/19 08:59 02/11/19 09:52 Magnesium Hydroxide (Mom) 30 ml DAILYPRN PRN ORAL Constipation 02/08/19 15:30 03/10/19 15:29 02/08/19 16:08 Methylprednisolone Sodium Succinate (Solu-MEDROL) 40 mg EVERY 12 HOURS IVP 02/10/19 21:00 03/12/19 20:59 02/11/19 09:47 Metoprolol Tartrate (Lopressor) 100 mg Q12HR ORAL 02/07/19 21:00 03/08/19 20:59 02/11/19 09:51 Morphine Sulfate (Morphine Sulfate) 2 mg Q2H PRN IVP Moderate Pain (Pain Scale 4-6) 02/07/19 16:15 02/14/19 16:14 02/11/19 13:36 Morphine Sulfate (Morphine Sulfate) 4 mg Q2H PRN IVP Severe Pain (Pain Scale 7-10) 02/07/19 16:15 02/14/19 16:14 02/09/19 23:02 Nitroglycerin (Ntg) 0.4 mg Q5M PRN SL Prn Chest Pain 02/07/19 11:00 03/08/19 17:29 02/08/19 07:42 Ondansetron HCl (Zofran) 4 mg Q6H PRN IVP Nausea & Vomiting 02/07/19 11:15 03/08/19 11:14 02/09/19 00:58 Patient Own Medication (Patient's Own Med) 1 ea BID ORAL 02/07/19 18:00 03/09/19 17:59 02/11/19 09:53 Patient Own Medication (Patient's Own Med) 1 ea QOD ORAL 02/13/19 09:00 03/15/19 08:59 Patient Own Medication (Patient's Own Med) 2 ea DAILY ORAL 02/08/19 09:00 03/10/19 08:59 02/11/19 09:54 Piperacillin Sod/ Tazobactam Sod 3.375 gm/Sodium Chloride 110 ml @ 27.5 mls/hr Q12HR@0600,1800 IVPB 02/11/19 18:00 02/18/19 17:59 Polyethylene Glycol (Miralax) 17 gm BEDTIME ORAL 02/08/19 21:00 03/10/19 20:59 02/10/19 20:44 Propofol 100 ml @ 0 mls/hr Q24H IV 02/11/19 08:30 02/13/19 08:29 02/11/19 14:18 Sodium Chloride 1,000 ml @ 100 mls/hr Q10H IVLG 02/07/19 11:00 03/08/19 18:17 02/11/19 14:19 Trimethoprim/ Sulfamethoxazole 25 ml/Dextrose 575 ml @ 383.333 mls/hr Q12HR@0000,1200 IV 02/11/19 12:00 02/18/19 11:59 02/11/19 13:41 Vancomycin HCl (Vanco rx to dose) 1 ea DAILY PRN MISC . 02/10/19 19:45 03/12/19 19:44 Vitamin D (Vitamin D) 400 intlu DAILY ORAL 02/08/19 09:00 03/09/19 08:59 02/11/19 09:48 Last 24 Hour Vital Signs Date Time Temp Pulse Resp B/P (MAP) Pulse Ox O2 Delivery O2 Flow Rate FiO2 02/11/19 14:18 25 132/84 Mechanical Ventilator 50 02/11/19 12:36 84 24 50 02/11/19 11:07 84 30 98 Mechanical Ventilator 50 02/11/19 10:57 81 30 96 Mechanical Ventilator 50 02/11/19 10:50 81 30 50 02/11/19 09:52 148/72 02/11/19 09:51 91 148/72 02/11/19 09:51 148/72 02/11/19 08:42 84 30 50 02/11/19 08:30 30 125/66 Mechanical Ventilator 02/11/19 08:00 50 02/11/19 08:00 84 02/11/19 07:06 84 30 100 Mechanical Ventilator 50 02/11/19 07:00 80 30 132/58 (82) 96 02/11/19 07:00 30 132/58 Endotracheal Tube 50 02/11/19 06:56 81 30 94 Mechanical Ventilator 50 02/11/19 06:32 81 30 50 02/11/19 06:00 30 130/59 Endotracheal Tube 50 02/11/19 06:00 80 30 130/59 (82) 94 02/11/19 05:07 30 130/62 Endotracheal Tube 100.0 50 02/11/19 05:06 30 130/62 Endotracheal Tube 50 02/11/19 05:00 80 30 130/62 (84) 94 02/11/19 04:43 80 30 50 02/11/19 04:00 80 02/11/19 04:00 30 123/55 Endotracheal Tube 50 02/11/19 04:00 98.8 81 30 128/64 (85) 94 02/11/19 04:00 50 02/11/19 03:53 80 30 100 Mechanical Ventilator 50 02/11/19 03:43 77 30 50 02/11/19 03:43 77 30 94 Mechanical Ventilator 50 02/11/19 03:00 30 121/60 Endotracheal Tube 60 02/11/19 03:00 77 30 121/60 (80) 95 02/11/19 02:00 77 30 123/61 (81) 95 02/11/19 02:00 30 123/61 Endotracheal Tube 60 02/11/19 01:02 80 30 60 02/11/19 01:00 78 30 121/62 (81) 100 02/11/19 01:00 30 128/66 Endotracheal Tube 75 02/11/19 00:57 30 111/58 Endotracheal Tube 100.0 75 02/11/19 00:00 83 02/11/19 00:00 75 02/11/19 00:00 30 111/58 Endotracheal Tube 75 02/11/19 00:00 98.8 81 30 111/58 (75) 100 02/10/19 23:00 78 30 105/64 (78) 100 02/10/19 23:00 30 105/64 Endotracheal Tube 75 02/10/19 22:55 75 30 99 Mechanical Ventilator 75 02/10/19 22:43 75 30 75 02/10/19 22:42 75 30 99 Mechanical Ventilator 75 02/10/19 22:00 83 30 113/58 (76) 100 02/10/19 22:00 30 107/63 Endotracheal Tube 90 02/10/19 21:30 83 31 90 02/10/19 21:30 83 30 124/60 (81) 100 02/10/19 21:00 30 127/60 Endotracheal Tube 90 02/10/19 21:00 83 30 127/60 (82) 100 02/10/19 20:45 80 126/60 02/10/19 20:41 30 126/60 Endotracheal Tube 100.0 90 02/10/19 20:40 30 125/61 Endotracheal Tube 90 02/10/19 20:30 82 30 125/61 (82) 100 02/10/19 20:00 79 02/10/19 20:00 90 02/10/19 20:00 98.2 82 30 126/60 (82) 100 02/10/19 20:00 30 126/60 Endotracheal Tube 90 02/10/19 19:53 80 30 100 Mechanical Ventilator 90 02/10/19 19:47 80 30 100 Mechanical Ventilator 90 02/10/19 19:44 80 30 90 02/10/19 19:30 80 30 117/59 (78) 100 02/10/19 19:00 30 115/62 Endotracheal Tube 90 02/10/19 19:00 82 30 115/62 (79) 100 02/10/19 18:30 83 30 114/59 (77) 100 02/10/19 18:00 85 30 115/58 (77) 100 02/10/19 18:00 30 115/58 Mechanical Ventilator 90 02/10/19 17:30 85 30 106/62 (77) 100 02/10/19 17:07 84 30 90 02/10/19 17:00 84 30 114/59 (77) 100 02/10/19 17:00 30 114/59 Mechanical Ventilator 90 02/10/19 16:30 85 30 105/61 (76) 100 02/10/19 16:25 30 109/60 Mechanical Ventilator 90 02/10/19 16:00 98.7 86 30 104/64 (77) 100 02/10/19 16:00 84 02/10/19 16:00 Mechanical Ventilator Mechanical Ventilator 02/10/19 16:00 30 104/64 Mechanical Ventilator 90 02/10/19 16:00 90 02/10/19 15:41 89 30 97 Mechanical Ventilator 100 02/10/19 15:39 83 30 100 Mechanical Ventilator 100 02/10/19 15:38 84 30 90 02/10/19 15:30 84 30 105/61 (76) 100 02/10/19 15:00 30 102/61 Mechanical Ventilator 90 02/10/19 15:00 99.0 86 30 102/61 (75) 100 02/10/19 14:30 88 30 104/62 (76) 100 02/10/19 14:00 86 30 106/63 (77) 100 02/10/19 14:00 30 106/63 Mechanical Ventilator 90 02/10/19 13:30 86 30 106/62 (77) 100 02/10/19 13:00 30 106/63 Mechanical Ventilator 90 02/10/19 13:00 86 30 106/63 (77) 100 02/10/19 12:54 89 30 90 02/10/19 12:48 30 110/68 Mechanical Ventilator 100 02/10/19 12:30 86 30 110/68 (82) 100 02/10/19 12:00 98.1 87 30 95/63 (74) 100 02/10/19 12:00 100 02/10/19 12:00 30 95/63 Mechanical Ventilator 100 02/10/19 12:00 Mechanical Ventilator Mechanical Ventilator 02/10/19 12:00 88 02/10/19 11:30 86 30 98/54 (69) 100 02/10/19 11:00 87 29 89/53 (65) 100 02/10/19 11:00 30 86/53 Mechanical Ventilator 100 02/10/19 10:48 95 30 100 02/10/19 10:46 93 30 90 Mechanical Ventilator 100 02/10/19 10:45 90 30 90 Mechanical Ventilator 100 02/10/19 10:30 95 28 115/54 (74) 91 02/10/19 10:10 146/65 02/10/19 10:08 129 146/65 02/10/19 10:08 146/65 02/10/19 10:00 125 31 139/65 (89) 92 02/10/19 10:00 31 146/65 Mechanical Ventilator 100 02/10/19 09:58 100 02/10/19 09:58 100 02/10/19 09:30 123 30 134/62 (86) 63 02/10/19 09:00 130 32 86/65 (72) 75 02/10/19 09:00 34 153/65 Mechanical Ventilator 100 02/10/19 08:57 32 155/71 Mechanical Ventilator 100 02/10/19 08:46 131 30 50 02/10/19 08:30 133 33 172/74 (106) 71 02/10/19 08:00 99.5 138 32 190/81 (117) 77 02/10/19 08:00 Mechanical Ventilator Mechanical Ventilator 02/10/19 08:00 127 02/10/19 08:00 100 02/10/19 08:00 31 190/81 Mechanical Ventilator 100 02/10/19 07:30 128 30 172/72 (105) 85 02/10/19 07:28 Mechanical Ventilator 50 02/10/19 07:27 Mechanical Ventilator 50 02/10/19 07:24 133 38 50 02/10/19 07:00 111 31 133/54 (80) 93 02/10/19 07:00 25 136/62 Endotracheal Tube 50 02/10/19 06:00 20 114/50 Endotracheal Tube 50 02/10/19 06:00 87 24 114/50 (71) 100 02/10/19 05:29 90 24 50 70 02/10/19 05:16 24 122/57 Endotracheal Tube 100.0 50 02/10/19 05:15 24 123/57 Endotracheal Tube 50 02/10/19 05:00 98.1 87 24 123/57 (79) 100 02/10/19 05:00 25 123/57 Endotracheal Tube 50 02/10/19 04:00 50 02/10/19 04:00 98.2 87 24 122/57 (78) 100 02/10/19 04:00 81 02/10/19 04:00 24 122/57 Endotracheal Tube 50 02/10/19 04:00 Mechanical Ventilator Mechanical Ventilator 02/10/19 03:43 93 24 98 Mechanical Ventilator 50 02/10/19 03:29 93 24 50 70 02/10/19 03:29 93 24 95 Mechanical Ventilator 50 02/10/19 03:00 92 20 120/57 (78) 97 02/10/19 03:00 24 119/55 Endotracheal Tube 50 02/10/19 02:00 24 119/56 Endotracheal Tube 50 02/10/19 02:00 91 20 119/56 (77) 97 02/10/19 01:20 88 24 50 70 02/10/19 01:06 22 114/54 Endotracheal Tube 100.0 50 02/10/19 01:05 24 113/55 Endotracheal Tube 50 02/10/19 01:00 90 20 113/55 (74) 97 02/10/19 01:00 22 114/54 Endotracheal Tube 50 02/10/19 00:00 88 02/10/19 00:00 50 02/10/19 00:00 24 110/52 Endotracheal Tube 50 02/10/19 00:00 Mechanical Ventilator Mechanical Ventilator 02/10/19 00:00 98.5 87 24 110/52 (71) 100 02/09/19 23:40 94 24 100 Mechanical Ventilator 50 02/09/19 23:32 98.1 02/09/19 23:30 87 24 95 Mechanical Ventilator 50 02/09/19 23:28 87 24 50 70 02/09/19 23:00 89 20 115/55 (75) 94 02/09/19 23:00 20 115/55 Endotracheal Tube 50 02/09/19 22:00 104 24 136/58 (84) 94 02/09/19 22:00 27 136/56 Endotracheal Tube 50 02/09/19 21:56 111 128/75 02/09/19 21:00 20 147/69 Endotracheal Tube 50 02/09/19 21:00 108 24 147/69 (95) 100 02/09/19 20:54 24 146/65 Endotracheal Tube 100.0 50 02/09/19 20:53 30 177/80 Endotracheal Tube 50 02/09/19 20:37 105 24 50 70 02/09/19 20:00 Mechanical Ventilator Mechanical Ventilator 02/09/19 20:00 98.5 99 24 135/60 (85) 100 02/09/19 20:00 24 135/60 Endotracheal Tube 70 02/09/19 20:00 50 02/09/19 20:00 93 02/09/19 19:41 95 24 100 Mechanical Ventilator 50 02/09/19 19:29 92 24 50 70 02/09/19 19:29 92 24 100 Mechanical Ventilator 50 02/09/19 19:00 24 126/59 Endotracheal Tube 70 02/09/19 19:00 92 24 126/59 (81) 100 02/09/19 18:00 99 27 122/66 (84) 100 02/09/19 18:00 29 122/66 Mechanical Ventilator 70 02/09/19 17:31 105 24 70 02/09/19 17:00 96 24 118/57 (77) 100 02/09/19 17:00 29 61/66 Mechanical Ventilator 70 02/09/19 16:44 24 114/54 Mechanical Ventilator 70 02/09/19 16:30 89 24 114/54 (74) 100 02/09/19 16:00 87 02/09/19 16:00 Mechanical Ventilator Mechanical Ventilator 02/09/19 16:00 70 02/09/19 16:00 24 112/52 Mechanical Ventilator 70 02/09/19 16:00 98.1 89 24 112/52 (72) 100 02/09/19 15:40 114 24 99 Mechanical Ventilator 100 02/09/19 15:30 83 24 111/56 (74) 100 02/09/19 15:22 82 24 70 02/09/19 15:22 84 24 100 Mechanical Ventilator 100 02/09/19 15:00 24 104/50 Non-Rebreather 70 02/09/19 15:00 84 24 104/50 (68) 100 Intake and Output 02/10/19 02/11/19 19:00 07:00 Intake Total 2754.530 ml 2366.970 ml Output Total 335 ml 25 ml Balance 2419.530 ml 2341.970 ml Free Water 250 ml 100 ml IV Total 2124.530 ml 1946.970 ml Tube Feeding 100 ml 260 ml Blood Product 250 ml Other 30 ml 60 ml Output Urine Total 335 ml 25 ml # Voids 555 Labs Test 02/08/19 17:45 02/09/19 01:05 02/09/19 02:53 02/09/19 05:00 Random Vancomycin Level 5.9 ug/mL Arterial Blood pH 7.181 (7.350-7.450) 7.236 (7.350-7.450) Arterial Blood Partial Pressure CO2 55.9 mmHg (35.0-45.0) 42.6 mmHg (35.0-45.0) Arterial Blood Partial Pressure O2 48.3 mmHg (75.0-100.0) 86.3 mmHg (75.0-100.0) Arterial Blood HCO3 20.4 mmol/L (22.0-26.0) 17.7 mmol/L (22.0-26.0) Arterial Blood Oxygen Saturation 73.3 % (95-100) 94.7 % (95-100) Arterial Blood Base Excess -8.1 (-2-2) -9.3 (-2-2) Benny Test Positive Positive White Blood Count 8.2 K/UL (4.8-10.8) Red Blood Count 3.09 M/UL (4.70-6.10) Hemoglobin 8.6 G/DL (14.2-18.0) Hematocrit 26.7 % (42.0-52.0) Mean Corpuscular Volume 86 FL (80-99) Mean Corpuscular Hemoglobin 27.9 PG (27.0-31.0) Mean Corpuscular Hemoglobin Concent 32.4 G/DL (32.0-36.0) Red Cell Distribution Width 17.8 % (11.6-14.8) Platelet Count 160 K/UL (150-450) Mean Platelet Volume 5.2 FL (6.5-10.1) Neutrophils (%) (Auto) 81.1 % (45.0-75.0) Lymphocytes (%) (Auto) 4.2 % (20.0-45.0) Monocytes (%) (Auto) 14.0 % (1.0-10.0) Eosinophils (%) (Auto) 0.0 % (0.0-3.0) Basophils (%) (Auto) 0.6 % (0.0-2.0) Sodium Level 134 MMOL/L (136-145) Potassium Level 5.2 MMOL/L (3.5-5.1) Chloride Level 102 MMOL/L (98-107) Carbon Dioxide Level 19 MMOL/L (21-32) Anion Gap 13 mmol/L (5-15) Blood Urea Nitrogen 27 mg/dL (7-18) Creatinine 1.5 MG/DL (0.55-1.30) Estimat Glomerular Filtration Rate 47.9 mL/min (>60) Glucose Level 327 MG/DL (74-106) Calcium Level 8.0 MG/DL (8.5-10.1) Total Bilirubin 0.5 MG/DL (0.2-1.0) Aspartate Amino Transf (AST/SGOT) 45 U/L (15-37) Alanine Aminotransferase (ALT/SGPT) 44 U/L (12-78) Alkaline Phosphatase 124 U/L (46-116) Total Protein 5.8 G/DL (6.4-8.2) Albumin 2.2 G/DL (3.4-5.0) Globulin 3.6 g/dL Albumin/Globulin Ratio 0.6 (1.0-2.7) Triglycerides Level 129 MG/DL (30-150) Test 02/09/19 07:45 02/09/19 13:15 02/10/19 04:49 02/10/19 08:00 TB Test (T-Spot) Negative (NEGATIVE) TB Test Nil Control (T-Spot) 0 TB Test Panel A (T-Spot) 1 TB Test Panel B (T-Spot) 0 TB Test Positive Control (T-Spot) 0 Arterial Blood pH 7.438 (7.350-7.450) Arterial Blood Partial Pressure CO2 31.0 mmHg (35.0-45.0) Arterial Blood Partial Pressure O2 164.9 mmHg (75.0-100.0) Arterial Blood HCO3 20.5 mmol/L (22.0-26.0) Arterial Blood Oxygen Saturation 98.8 % (95-100) Arterial Blood Base Excess -3.2 (-2-2) Benny Test Positive White Blood Count 6.1 K/UL (4.8-10.8) Red Blood Count 2.75 M/UL (4.70-6.10) Hemoglobin 7.6 G/DL (14.2-18.0) Hematocrit 23.5 % (42.0-52.0) Mean Corpuscular Volume 85 FL (80-99) Mean Corpuscular Hemoglobin 27.8 PG (27.0-31.0) Mean Corpuscular Hemoglobin Concent 32.5 G/DL (32.0-36.0) Red Cell Distribution Width 17.9 % (11.6-14.8) Platelet Count 147 K/UL (150-450) Mean Platelet Volume 5.3 FL (6.5-10.1) Neutrophils (%) (Auto) % (45.0-75.0) Lymphocytes (%) (Auto) % (20.0-45.0) Monocytes (%) (Auto) % (1.0-10.0) Eosinophils (%) (Auto) % (0.0-3.0) Basophils (%) (Auto) % (0.0-2.0) Differential Total Cells Counted 100 Neutrophils % (Manual) 70 % (45-75) Lymphocytes % (Manual) 21 % (20-45) Monocytes % (Manual) 9 % (1-10) Eosinophils % (Manual) 0 % (0-3) Basophils % (Manual) 0 % (0-2) Band Neutrophils 0 % (0-8) Platelet Estimate Adequate Platelet Morphology Normal Anisocytosis 1+ Sodium Level 141 MMOL/L (136-145) Potassium Level 4.0 MMOL/L (3.5-5.1) Chloride Level 107 MMOL/L (98-107) Carbon Dioxide Level 23 MMOL/L (21-32) Anion Gap 11 mmol/L (5-15) Blood Urea Nitrogen 30 mg/dL (7-18) Creatinine 1.9 MG/DL (0.55-1.30) Estimat Glomerular Filtration Rate 36.5 mL/min (>60) Glucose Level 156 MG/DL (74-106) Calcium Level 7.6 MG/DL (8.5-10.1) Total Bilirubin 0.6 MG/DL (0.2-1.0) Aspartate Amino Transf (AST/SGOT) 49 U/L (15-37) Alanine Aminotransferase (ALT/SGPT) 44 U/L (12-78) Alkaline Phosphatase 101 U/L (46-116) Troponin I 7.179 ng/mL (0.000-0.056) Total Protein 5.6 G/DL (6.4-8.2) Albumin 1.8 G/DL (3.4-5.0) Globulin 3.8 g/dL Albumin/Globulin Ratio 0.5 (1.0-2.7) Vancomycin Level Trough 14.0 ug/mL (5.0-12.0) Test 02/10/19 08:40 02/10/19 13:00 02/10/19 13:18 02/10/19 17:40 Arterial Blood pH 7.106 (7.350-7.450) 7.367 (7.350-7.450) 7.418 (7.350-7.450) Arterial Blood Partial Pressure CO2 59.3 mmHg (35.0-45.0) 25.9 mmHg (35.0-45.0) 26.9 mmHg (35.0-45.0) Arterial Blood Partial Pressure O2 50.0 mmHg (75.0-100.0) 253.3 mmHg (75.0-100.0) 229.9 mmHg (75.0-100.0) Arterial Blood HCO3 18.2 mmol/L (22.0-26.0) 14.5 mmol/L (22.0-26.0) 17.0 mmol/L (22.0-26.0) Arterial Blood Oxygen Saturation 70.7 % (95-100) 99.1 % (95-100) 99.0 % (95-100) Arterial Blood Base Excess -11.3 (-2-2) -9.6 (-2-2) -6.5 (-2-2) Benny Test Positive Positive Positive Erythrocyte Sedimentation Rate 130 MM/HR (0-20) C-Reactive Protein, Quantitative 27.8 mg/dL (0.00-0.90) Test 02/11/19 06:10 02/11/19 08:57 02/11/19 10:05 White Blood Count 5.8 K/UL (4.8-10.8) Red Blood Count 2.96 M/UL (4.70-6.10) Hemoglobin 8.2 G/DL (14.2-18.0) Hematocrit 25.0 % (42.0-52.0) Mean Corpuscular Volume 85 FL (80-99) Mean Corpuscular Hemoglobin 27.6 PG (27.0-31.0) Mean Corpuscular Hemoglobin Concent 32.6 G/DL (32.0-36.0) Red Cell Distribution Width 17.8 % (11.6-14.8) Platelet Count 153 K/UL (150-450) Mean Platelet Volume 5.7 FL (6.5-10.1) Neutrophils (%) (Auto) % (45.0-75.0) Lymphocytes (%) (Auto) % (20.0-45.0) Monocytes (%) (Auto) % (1.0-10.0) Eosinophils (%) (Auto) % (0.0-3.0) Basophils (%) (Auto) % (0.0-2.0) Differential Total Cells Counted 100 Neutrophils % (Manual) 90 % (45-75) Lymphocytes % (Manual) 7 % (20-45) Monocytes % (Manual) 3 % (1-10) Eosinophils % (Manual) 0 % (0-3) Basophils % (Manual) 0 % (0-2) Band Neutrophils 0 % (0-8) Platelet Estimate Adequate Platelet Morphology Normal Anisocytosis 1+ Reticulocyte Count 0.2 % (0.5-2.0) Prothrombin Time 10.5 SEC (9.30-11.50) Prothromb Time International Ratio 1.0 (0.9-1.1) Sodium Level 140 MMOL/L (136-145) Potassium Level 4.1 MMOL/L (3.5-5.1) Chloride Level 106 MMOL/L (98-107) Carbon Dioxide Level 18 MMOL/L (21-32) Anion Gap 17 mmol/L (5-15) Blood Urea Nitrogen 45 mg/dL (7-18) Creatinine 3.3 MG/DL (0.55-1.30) Estimat Glomerular Filtration Rate 19.3 mL/min (>60) Glucose Level 370 MG/DL (74-106) Calcium Level 7.9 MG/DL (8.5-10.1) Iron Level 6 ug/dL (50-175) Total Iron Binding Capacity 126 ug/dL (250-450) Percent Iron Saturation 5 % (15-50) Unsaturated Iron Binding 120 ug/dL (112-346) Ferritin 182 NG/ML (8-388) Total Bilirubin 0.7 MG/DL (0.2-1.0) Direct Bilirubin 0.4 MG/DL (0.0-0.3) Lactate Dehydrogenase 311 U/L (81-234) Troponin I 7.745 ng/mL (0.000-0.056) Pro-B-Type Natriuretic Peptide 5767 pg/mL (0-125) Triglycerides Level 194 MG/DL (30-150) Vitamin B12 Level 1213 PG/ML (193-986) Thyroid Stimulating Hormone (TSH) 0.487 uiU/mL (0.358-3.740) HIV (1&2) Antibody Rapid Preliminary positive Arterial Blood pH 7.422 (7.350-7.450) Arterial Blood Partial Pressure CO2 24.0 mmHg (35.0-45.0) Arterial Blood Partial Pressure O2 76.3 mmHg (75.0-100.0) Arterial Blood HCO3 15.3 mmol/L (22.0-26.0) Arterial Blood Oxygen Saturation 94.4 % (95-100) Arterial Blood Base Excess -7.9 (-2-2) Benny Test Positive Vancomycin Level Trough 22.8 ug/mL (5.0-12.0) Height (Feet): 6 Height (Inches): 0.00 Weight (Pounds): 215 Objective PHYSICAL EXAMINATION: GENERAL: NAD VITAL SIGNS: Have been reviewed. HEAD AND NECK: Shows no JVD. NG+ TRACH+ LUNGS: Coarse rhonchi. CARDIOVASCULAR: Shows regular S1 and S2 with no gallop or murmur. ABDOMEN: Soft. EXTREMITIES: No pitting edema. Chan Hernandez MD Feb 11, 2019 14:37
--- NOTE | 2019-02-11 14:55 | General Progress Note ---
Assessment/Plan Status: stable Assessment/Plan: 58 y Male admitted to the hospital due to fever, shortness of breath and chest pain. # Multilobar pneumonia in patient with HIV- worse - Broad sp atbx. Will continue Zosyn, Vancomycin and Azithromycin - Bactrim added for PCP coverage - Droplet precaution - Flu swab ordered. If positive will need antiviral therapy - Oxygen support - ID consult appreciated. AFB, cocci, hystoplasma, legionella, ordered. . - Patient s/p emergent bronchoscopy given florid ARDS without clear etiology # Acute Hypoxemic respiratory failure # ARDS - Cont mechanical ventilation, changed to pressure control - s/p emergent bronchoscopy - Due to pneumonia # NSTEMI - EKG with bifascicular block RBB and LAFB, no ST changes. - Trend troponin x3 - ECHO completed with no WMA and preserved EF. Dr. Francois consulted. Consideration for outpatient cath vs possibly myocarditis due to underlying viral infection. No evidence of Takotsubo per TTE. - NGT prn - Pain control with morphine # HIV - Continue HARRT - VL is undetectable per patient report. 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 Pt unable to provide additional history. Objective Last 24 Hour Vital Signs Date Time Temp Pulse Resp B/P (MAP) Pulse Ox O2 Delivery O2 Flow Rate FiO2 02/11/19 14:18 25 132/84 Mechanical Ventilator 50 02/11/19 12:36 84 24 50 02/11/19 11:07 84 30 98 Mechanical Ventilator 50 02/11/19 10:57 81 30 96 Mechanical Ventilator 50 02/11/19 10:50 81 30 50 02/11/19 09:52 148/72 02/11/19 09:51 91 148/72 02/11/19 09:51 148/72 6/23/19 08:42 84 30 50 02/11/19 08:30 30 125/66 Mechanical Ventilator 02/11/19 08:00 50 02/11/19 08:00 84 02/11/19 07:06 84 30 100 Mechanical Ventilator 50 02/11/19 07:00 80 30 132/58 (82) 96 02/11/19 07:00 30 132/58 Endotracheal Tube 50 02/11/19 06:56 81 30 94 Mechanical Ventilator 50 02/11/19 06:32 81 30 50 02/11/19 06:00 30 130/59 Endotracheal Tube 50 02/11/19 06:00 80 30 130/59 (82) 94 02/11/19 05:07 30 130/62 Endotracheal Tube 100.0 50 02/11/19 05:06 30 130/62 Endotracheal Tube 50 02/11/19 05:00 80 30 130/62 (84) 94 02/11/19 04:43 80 30 50 02/11/19 04:00 80 02/11/19 04:00 30 123/55 Endotracheal Tube 50 02/11/19 04:00 98.8 81 30 128/64 (85) 94 02/11/19 04:00 50 02/11/19 03:53 80 30 100 Mechanical Ventilator 50 02/11/19 03:43 77 30 50 02/11/19 03:43 77 30 94 Mechanical Ventilator 50 02/11/19 03:00 30 121/60 Endotracheal Tube 60 02/11/19 03:00 77 30 121/60 (80) 95 02/11/19 02:00 77 30 123/61 (81) 95 02/11/19 02:00 30 123/61 Endotracheal Tube 60 02/11/19 01:02 80 30 60 02/11/19 01:00 78 30 121/62 (81) 100 02/11/19 01:00 30 128/66 Endotracheal Tube 75 02/11/19 00:57 30 111/58 Endotracheal Tube 100.0 75 02/11/19 00:00 83 02/11/19 00:00 75 02/11/19 00:00 30 111/58 Endotracheal Tube 75 02/11/19 00:00 98.8 81 30 111/58 (75) 100 02/10/19 23:00 78 30 105/64 (78) 100 02/10/19 23:00 30 105/64 Endotracheal Tube 75 02/10/19 22:55 75 30 99 Mechanical Ventilator 75 02/10/19 22:43 75 30 75 02/10/19 22:42 75 30 99 Mechanical Ventilator 75 02/10/19 22:00 83 30 113/58 (76) 100 02/10/19 22:00 30 107/63 Endotracheal Tube 90 02/10/19 21:30 83 31 90 02/10/19 21:30 83 30 124/60 (81) 100 02/10/19 21:00 30 127/60 Endotracheal Tube 90 02/10/19 21:00 83 30 127/60 (82) 100 02/10/19 20:45 80 126/60 02/10/19 20:41 30 126/60 Endotracheal Tube 100.0 90 02/10/19 20:40 30 125/61 Endotracheal Tube 90 02/10/19 20:30 82 30 125/61 (82) 100 02/10/19 20:00 79 02/10/19 20:00 90 02/10/19 20:00 98.2 82 30 126/60 (82) 100 02/10/19 20:00 30 126/60 Endotracheal Tube 90 02/10/19 19:53 80 30 100 Mechanical Ventilator 90 02/10/19 19:47 80 30 100 Mechanical Ventilator 90 02/10/19 19:44 80 30 90 02/10/19 19:30 80 30 117/59 (78) 100 02/10/19 19:00 30 115/62 Endotracheal Tube 90 02/10/19 19:00 82 30 115/62 (79) 100 02/10/19 18:30 83 30 114/59 (77) 100 02/10/19 18:00 85 30 115/58 (77) 100 02/10/19 18:00 30 115/58 Mechanical Ventilator 90 02/10/19 17:30 85 30 106/62 (77) 100 02/10/19 17:07 84 30 90 02/10/19 17:00 84 30 114/59 (77) 100 02/10/19 17:00 30 114/59 Mechanical Ventilator 90 02/10/19 16:30 85 30 105/61 (76) 100 02/10/19 16:25 30 109/60 Mechanical Ventilator 90 02/10/19 16:00 98.7 86 30 104/64 (77) 100 02/10/19 16:00 84 02/10/19 16:00 Mechanical Ventilator Mechanical Ventilator 02/10/19 16:00 30 104/64 Mechanical Ventilator 90 02/10/19 16:00 90 02/10/19 15:41 89 30 97 Mechanical Ventilator 100 02/10/19 15:39 83 30 100 Mechanical Ventilator 100 02/10/19 15:38 84 30 90 02/10/19 15:30 84 30 105/61 (76) 100 02/10/19 15:00 30 102/61 Mechanical Ventilator 90 02/10/19 15:00 99.0 86 30 102/61 (75) 100 Intake and Output 02/10/19 02/11/19 19:00 07:00 Intake Total 2754.530 ml 2366.970 ml Output Total 335 ml 25 ml Balance 2419.530 ml 2341.970 ml Free Water 250 ml 100 ml IV Total 2124.530 ml 1946.970 ml Tube Feeding 100 ml 260 ml Blood Product 250 ml Other 30 ml 60 ml Output Urine Total 335 ml 25 ml # Voids 555 Laboratory Tests 02/10/19 17:40: Arterial Blood pH 7.418, Arterial Blood Partial Pressure CO2 26.9L, Arterial Blood Partial Pressure O2 229.9H, Arterial Blood HCO3 17.0*L, Arterial Blood Oxygen Saturation 99.0, Arterial Blood Base Excess -6.5L, Benny Test Positive 02/11/19 06:10: White Blood Count 5.8, Red Blood Count 2.96L, Hemoglobin 8.2L, Hematocrit 25.0L , Mean Corpuscular Volume 85, Mean Corpuscular Hemoglobin 27.6, Mean Corpuscular Hemoglobin Concent 32.6, Red Cell Distribution Width 17.8H, Platelet Count 153, Mean Platelet Volume 5.7L, Neutrophils (%) (Auto) , Lymphocytes (%) (Auto) , Monocytes (%) (Auto) , Eosinophils (%) (Auto) , Basophils (%) (Auto) , Differential Total Cells Counted 100, Neutrophils % ( Manual) 90H, Lymphocytes % (Manual) 7L, Monocytes % (Manual) 3, Eosinophils % ( Manual) 0, Basophils % (Manual) 0, Band Neutrophils 0, Platelet Estimate Adequate, Platelet Morphology Normal, Anisocytosis 1+, Reticulocyte Count 0.2L, Prothrombin Time 10.5, Prothromb Time International Ratio 1.0, Sodium Level 140 , Potassium Level 4.1, Chloride Level 106, Carbon Dioxide Level 18L, Anion Gap 17H, Blood Urea Nitrogen 45H, Creatinine 3.3#H, Estimat Glomerular Filtration Rate 19.3, Glucose Level 370#H, Calcium Level 7.9L, Iron Level 6L, Total Iron Binding Capacity 126L, Percent Iron Saturation 5L, Unsaturated Iron Binding 120 , Ferritin 182, Total Bilirubin 0.7, Direct Bilirubin 0.4H, Lactate Dehydrogenase 311H, Troponin I 7.745H, Pro-B-Type Natriuretic Peptide 5767H, Triglycerides Level 194H, Carcinoembryonic Antigen [Pending], Vitamin B12 Level 1213H, Thyroid Stimulating Hormone (TSH) 0.487, Hepatitis A IgM Antibody [ Pending], Hepatitis B Surface Antigen [Pending], Hepatitis B Core IgM Antibody [ Pending], Hepatitis C Antibody [Pending], HIV-1 Antibody [Pending], HIV-2 Antibody [Pending], HIV (1&2) Antibody Rapid Preliminary positiveH 02/11/19 08:57: Arterial Blood pH 7.422, Arterial Blood Partial Pressure CO2 24.0*L, Arterial Blood Partial Pressure O2 76.3, Arterial Blood HCO3 15.3*L, Arterial Blood Oxygen Saturation 94.4L, Arterial Blood Base Excess -7.9L, Benny Test Positive 02/11/19 10:05: Vancomycin Level Trough 22.8H Height (Feet): 6 Height (Inches): 0.00 Weight (Pounds): 215 Objective vent settings reviewed General Appearance: Intubated, sedated. 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
[2019-02-11] MEDS ORDERED: D5NS 1000ml IV ONE (15:50)
--- NOTE | 2019-02-11 15:55 | NUR ---
NURSE NOTES: morphine 2mg ivp, given for pain pt found in bed grimace, kicking lower extremities, whimpering, diaphoretic, flacc score 9/9/10. will continue to monitor pt.
--- NOTE | 2019-02-11 16:00 | NUR ---
NURSE NOTES: CALLED MD PEREA REGARDING TREND OF BG 418, PT RECEIVING NOV COVERAGE, PLUS 6U AND LEVEMIR. RECEIVED ORDER TO D/C NOVOLOG, ISS, AND LEVEMIR, PLACE PT ON INSULIN DRIP W/ ALOG 3.
[2019-02-11] MEDS: Morphine Sulfate 4mg/ml Inj (IV USE ONLY) IVP PRN (16:15)
--- NOTE | 2019-02-11 17:00 | NUR ---
NURSE NOTES: MD DAILEY HERE TO SE PT. INFORMED OF A.M ABG'S AND TRIGLYCERIDE 194. WILL CONTINUE TO MONITOR PT LEVELS. OK TO TREND PEEP DOWN. NO NEW ORDERS AT THIS TIME.
--- NOTE | 2019-02-11 17:20 | Pulmonolgy Critical Care Note ---
Critical Care - Asmt/Plan Assessment/Plan: VDRF ARDS Acute respiratory failure B pulmonary infiltrates, ? multilobar CAP vs atypical infection vs other ? PJP AIDS (CD4 191) NSTEMI H/O prior CVA HTN, HL , DM CKD Anemia hyperglycemia PLAN: Based on IBW 77 gk, TV 460-616: will change vent to AC 24, TV 550 Titrate down FiO2, then PEEP to keep SaO2 > 90 CT pending too unstable to transfer RTC and PRN HHN's Continue Abx per ID (Zosyn, Vanco, Azithro), will add IV TMP-SMX for now F/U ID recs, F/U CX's Monitor volumes and renal function, mIVF F/U cards recs: ASA, statin, ARB, per cards hold off on IVUH, continue LMWH Px, will need further ischemia eval/cath once stabilized DVT Px: LMWH ICU sedation, continue Propofol, monitor triglycerides up to 190 Monitor BS, continue SSI Respiratory: adjust tidal volume, CXR, ABG Cardiac: continue to monitor HR/BP Gastrointestinal: continue feedings/current rate Endocrine: check TSH, check HgA1C, start insulin drip Prophylaxis: Protonix, Heparin Time Spent (Minutes): 50 Notes 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, 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, ID Discussed with: nurses Critical Care - Objective Last 24 Hour Vital Signs Date Time Temp Pulse Resp B/P (MAP) Pulse Ox O2 Delivery O2 Flow Rate FiO2 02/11/19 16:46 89 26 99 Mechanical Ventilator 50 02/11/19 16:36 82 26 97 Mechanical Ventilator 50 02/11/19 16:30 82 26 50 02/11/19 16:27 82 26 97 Mechanical Ventilator 50 02/11/19 16:00 50 02/11/19 16:00 89 02/11/19 14:59 86 24 50 02/11/19 14:18 25 132/84 Mechanical Ventilator 50 02/11/19 12:36 84 24 50 02/11/19 12:00 50 02/11/19 12:00 78 02/11/19 11:30 24 121/64 Mechanical Ventilator 50 02/11/19 11:30 78 24 121/64 (83) 98 02/11/19 11:07 84 30 98 Mechanical Ventilator 50 02/11/19 11:00 78 24 125/63 (83) 98 02/11/19 11:00 24 125/63 Mechanical Ventilator 50 02/11/19 10:57 81 30 96 Mechanical Ventilator 50 02/11/19 10:50 81 30 50 02/11/19 10:30 84 30 131/66 (87) 98 02/11/19 10:30 30 131/66 Mechanical Ventilator 50 02/11/19 10:00 30 125/66 Mechanical Ventilator 50 02/11/19 10:00 88 30 125/66 (85) 99 02/11/19 09:52 148/72 02/11/19 09:51 91 148/72 02/11/19 09:51 148/72 02/11/19 09:30 30 148/72 Mechanical Ventilator 50 02/11/19 09:30 91 30 147/72 (97) 99 02/11/19 09:00 89 29 127/64 (85) 97 02/11/19 09:00 29 127/64 Mechanical Ventilator 50 02/11/19 08:42 84 30 50 02/11/19 08:30 30 125/66 Mechanical Ventilator 02/11/19 08:30 84 30 126/60 (82) 96 02/11/19 08:00 84 30 129/61 (83) 96 02/11/19 08:00 50 02/11/19 08:00 30 129/61 Mechanical Ventilator 50 02/11/19 08:00 84 02/11/19 07:30 30 133/61 Mechanical Ventilator 50 02/11/19 07:30 85 30 132/59 (83) 96 02/11/19 07:06 84 30 100 Mechanical Ventilator 50 02/11/19 07:00 80 30 132/58 (82) 96 02/11/19 07:00 30 132/58 Endotracheal Tube 50 02/11/19 06:56 81 30 94 Mechanical Ventilator 50 02/11/19 06:32 81 30 50 02/11/19 06:00 30 130/59 Endotracheal Tube 50 02/11/19 06:00 80 30 130/59 (82) 94 02/11/19 05:07 30 130/62 Endotracheal Tube 100.0 50 02/11/19 05:06 30 130/62 Endotracheal Tube 50 02/11/19 05:00 80 30 130/62 (84) 94 02/11/19 04:43 80 30 50 02/11/19 04:00 80 02/11/19 04:00 30 123/55 Endotracheal Tube 50 02/11/19 04:00 98.8 81 30 128/64 (85) 94 02/11/19 04:00 50 02/11/19 03:53 80 30 100 Mechanical Ventilator 50 02/11/19 03:43 77 30 50 02/11/19 03:43 77 30 94 Mechanical Ventilator 50 02/11/19 03:00 30 121/60 Endotracheal Tube 60 02/11/19 03:00 77 30 121/60 (80) 95 02/11/19 02:00 77 30 123/61 (81) 95 02/11/19 02:00 30 123/61 Endotracheal Tube 60 02/11/19 01:02 80 30 60 02/11/19 01:00 78 30 121/62 (81) 100 02/11/19 01:00 30 128/66 Endotracheal Tube 75 02/11/19 00:57 30 111/58 Endotracheal Tube 100.0 75 02/11/19 00:00 83 02/11/19 00:00 75 02/11/19 00:00 30 111/58 Endotracheal Tube 75 02/11/19 00:00 98.8 81 30 111/58 (75) 100 02/10/19 23:00 78 30 105/64 (78) 100 02/10/19 23:00 30 105/64 Endotracheal Tube 75 02/10/19 22:55 75 30 99 Mechanical Ventilator 75 02/10/19 22:43 75 30 75 02/10/19 22:42 75 30 99 Mechanical Ventilator 75 02/10/19 22:00 83 30 113/58 (76) 100 02/10/19 22:00 30 107/63 Endotracheal Tube 90 02/10/19 21:30 83 31 90 02/10/19 21:30 83 30 124/60 (81) 100 02/10/19 21:00 30 127/60 Endotracheal Tube 90 02/10/19 21:00 83 30 127/60 (82) 100 02/10/19 20:45 80 126/60 02/10/19 20:41 30 126/60 Endotracheal Tube 100.0 90 02/10/19 20:40 30 125/61 Endotracheal Tube 90 02/10/19 20:30 82 30 125/61 (82) 100 02/10/19 20:00 79 02/10/19 20:00 90 02/10/19 20:00 98.2 82 30 126/60 (82) 100 02/10/19 20:00 30 126/60 Endotracheal Tube 90 02/10/19 19:53 80 30 100 Mechanical Ventilator 90 02/10/19 19:47 80 30 100 Mechanical Ventilator 90 02/10/19 19:44 80 30 90 02/10/19 19:30 80 30 117/59 (78) 100 02/10/19 19:00 30 115/62 Endotracheal Tube 90 02/10/19 19:00 82 30 115/62 (79) 100 02/10/19 18:30 83 30 114/59 (77) 100 02/10/19 18:00 85 30 115/58 (77) 100 02/10/19 18:00 30 115/58 Mechanical Ventilator 90 02/10/19 17:30 85 30 106/62 (77) 100 Status: obtunded Condition: critical Lungs: rhonchi Heart: HR/BP unstable Abdomen: non-tender, feeding tube Extremities: edema Micro: Microbiology Date/Time Source Procedure Growth Status 02/09/19 14:45 Sputum Expectorated Received 02/09/19 14:45 Sputum AFB Specimen Processing Tissue - Final Resulted 02/09/19 14:45 Sputum Acid Fast Bacilli Smear - Final Resulted 02/09/19 14:45 Sputum Acid Fast Bacilli Culture Pending Resulted 02/09/19 05:20 Sputum AFB Specimen Processing Tissue - Final Resulted 02/09/19 05:20 Sputum Acid Fast Bacilli Smear - Final Resulted 02/09/19 05:20 Sputum Acid Fast Bacilli Culture Pending Resulted 02/08/19 22:30 Sputum Induced Gram Stain - Final Complete 02/08/19 22:30 Sputum Induced Sputum Culture - Final NORMAL UPPER RESPIRATORY ADRIANA PRESENT Complete Accucheck: 418 Blood Sugars: BS not controlled Critical Care - Subjective ROS Limited/Unobtainable: Yes Condition: critical FI02: 50 Vent Support Breath Rate: 30 Vent Support Mode: AC Vent Tidal Volume: 600 Sputum Amount: Small PEEP: 10.0 PIP: 44 Tube Feeding Amount: 35 I&O: Intake and Output 02/10/19 02/11/19 19:00 07:00 Intake Total 2754.530 ml 2366.970 ml Output Total 335 ml 25 ml Balance 2419.530 ml 2341.970 ml Free Water 250 ml 100 ml IV Total 2124.530 ml 1946.970 ml Tube Feeding 100 ml 260 ml Blood Product 250 ml Other 30 ml 60 ml Output Urine Total 335 ml 25 ml # Voids 555 Subjective: events noted on the vent no distress npo no fever no bleeding abg reviewed troponin elevated today CXR wtih bilateral infiltrates on ac 24 tv 600 10 peep 50% Fio2 ET-Tube: 7.5 ET Position: 25 Labs: Current Medications Medications (Trade) Dose Ordered Sig/Marquis Route PRN Reason Start Time Stop Time Status Last Admin Dose Admin Acetaminophen (Tylenol) 650 mg Q4H PRN ORAL Mild Pain (Pain Scale 1-3) 02/07/19 11:15 03/08/19 17:29 02/07/19 23:01 Acetaminophen/ Butalbital/ Caffeine (Fioricet) 1 tab Q8H PRN ORAL For Headache 02/08/19 17:15 03/10/19 17:14 Albuterol/ Ipratropium (Albuterol/ Ipratropium) 3 ml Q4HRT HHN 02/09/19 15:00 02/14/19 14:59 02/11/19 16:36 Alprazolam (Xanax) 0.5 mg Q6H PRN ORAL For Anxiety 02/08/19 20:15 02/15/19 20:14 02/08/19 20:51 Aspirin (Ecotrin) 81 mg DAILY ORAL 02/08/19 09:00 03/09/19 08:59 02/11/19 09:48 Atorvastatin Calcium (Lipitor) 40 mg QHS ORAL 02/08/19 21:00 03/10/19 20:59 02/10/19 20:45 Azithromycin 250 mg/Sodium Chloride 275 ml @ 275 mls/hr DAILY IV 02/08/19 09:00 02/14/19 08:59 02/11/19 09:47 Bisacodyl (Dulcolax) 5 mg DAILYPRN PRN ORAL Constipation 02/08/19 17:15 03/10/19 17:14 Cetirizine HCl (ZyrTEC) 10 mg DAILYPRN PRN ORAL Itching 02/07/19 11:30 03/09/19 11:29 Dextrose (Dextrose 50%) 25 ml Q30M PRN IV HYPOGLYCEMIA 02/11/19 17:15 03/13/19 17:14 Dextrose (Dextrose 50%) 50 ml Q30M PRN IV HYPOGLYCEMIA 02/11/19 17:15 03/13/19 17:14 Docusate Sodium (Colace) 100 mg BID GT 02/10/19 09:00 03/12/19 08:59 02/11/19 09:46 Duloxetine HCl (Cymbalta) 90 mg DAILY ORAL 02/08/19 09:00 03/09/19 08:59 02/11/19 09:50 Enoxaparin Sodium (Lovenox) 40 mg Q24H SUBQ 02/07/19 21:00 03/08/19 20:59 02/08/19 20:54 EZETIMIBE (Zetia) 10 mg BEDTIME ORAL 02/07/19 21:00 03/08/19 20:59 02/10/19 20:45 Famotidine (Pepcid) 20 mg BID ORAL 02/07/19 18:00 03/08/19 19:59 02/11/19 09:49 Ferrous Sulfate (Feosol) 325 mg THREE TIMES A DAY ORAL 02/07/19 13:00 03/09/19 08:59 02/11/19 13:41 Fluconazole/ Sodium Chloride 100 ml @ 100 mls/hr Q24H IV 02/09/19 18:00 02/16/19 17:59 02/10/19 17:40 Folic Acid (Folate) 1 mg BID ORAL 02/07/19 18:00 03/09/19 08:59 02/11/19 09:48 Guaifenesin (Mucinex ER) 600 mg TWICE A DAY ORAL 02/07/19 18:00 03/09/19 08:59 02/11/19 09:47 Hydralazine HCl (Apresoline) 25 mg Q6H PRN ORAL SBP > 160mmHg 02/07/19 11:15 03/08/19 11:14 02/08/19 15:32 Insulin Aspart (NovoLOG) EVERY 4 HOURS SUBQ 02/10/19 09:00 03/08/19 12:29 02/11/19 13:49 Insulin Detemir (Levemir) 8 units BID SUBQ 02/10/19 09:00 03/12/19 08:59 02/11/19 10:19 Insulin Human Regular (NovoLIN R) 5 units PRN PRN IV BS 200-299 02/11/19 17:15 03/13/19 17:14 Insulin Human Regular (NovoLIN R) 10 units PRN PRN IV BS=>300 02/11/19 17:15 03/13/19 17:14 Insulin Human Regular 100 units/ Sodium Chloride 100 ml @ 0 mls/hr Q24H IV 02/11/19 17:15 03/13/19 17:14 Isosorbide Mononitrate (Imdur) 30 mg DAILY ORAL 02/08/19 09:00 03/09/19 08:59 02/11/19 09:51 Losartan Potassium (Cozaar) 100 mg DAILY ORAL 02/08/19 09:00 03/09/19 08:59 02/11/19 09:52 Magnesium Hydroxide (Mom) 30 ml DAILYPRN PRN ORAL Constipation 02/08/19 15:30 03/10/19 15:29 02/08/19 16:08 Methylprednisolone Sodium Succinate (Solu-MEDROL) 40 mg EVERY 12 HOURS IVP 02/10/19 21:00 03/12/19 20:59 02/11/19 09:47 Metoprolol Tartrate (Lopressor) 100 mg Q12HR ORAL 02/07/19 21:00 03/08/19 20:59 02/11/19 09:51 Miscellaneous Medication (Insulin Rate Change) 1 ea PRN PRN MISC Per rx protocol 02/11/19 17:15 03/13/19 17:14 Morphine Sulfate (Morphine Sulfate) 2 mg Q2H PRN IVP Moderate Pain (Pain Scale 4-6) 02/07/19 16:15 02/14/19 16:14 02/11/19 13:36 Morphine Sulfate (Morphine Sulfate) 4 mg Q2H PRN IVP Severe Pain (Pain Scale 7-10) 02/07/19 16:15 02/14/19 16:14 02/11/19 16:15 Nitroglycerin (Ntg) 0.4 mg Q5M PRN SL Prn Chest Pain 02/07/19 11:00 03/08/19 17:29 02/08/19 07:42 Ondansetron HCl (Zofran) 4 mg Q6H PRN IVP Nausea & Vomiting 02/07/19 11:15 03/08/19 11:14 02/09/19 00:58 Patient Own Medication (Patient's Own Med) 1 ea BID ORAL 02/07/19 18:00 03/09/19 17:59 02/11/19 09:53 Patient Own Medication (Patient's Own Med) 1 ea QOD ORAL 02/13/19 09:00 03/15/19 08:59 Patient Own Medication (Patient's Own Med) 2 ea DAILY ORAL 02/08/19 09:00 03/10/19 08:59 02/11/19 09:54 Piperacillin Sod/ Tazobactam Sod 3.375 gm/Sodium Chloride 110 ml @ 27.5 mls/hr Q12HR@0600,1800 IVPB 02/11/19 18:00 02/18/19 17:59 Polyethylene Glycol (Miralax) 17 gm BEDTIME ORAL 02/08/19 21:00 03/10/19 20:59 02/10/19 20:44 Propofol 100 ml @ 0 mls/hr Q24H IV 02/11/19 08:30 02/13/19 08:29 02/11/19 14:18 Sodium Chloride 1,000 ml @ 100 mls/hr Q10H IVLG 02/07/19 11:00 03/08/19 18:17 02/11/19 14:19 Trimethoprim/ Sulfamethoxazole 25 ml/Dextrose 575 ml @ 383.333 mls/hr Q12HR@0000,1200 IV 02/11/19 12:00 02/18/19 11:59 02/11/19 13:41 Vancomycin HCl (Vanco rx to dose) 1 ea DAILY PRN MISC . 02/10/19 19:45 03/12/19 19:44 Vitamin D (Vitamin D) 400 intlu DAILY ORAL 02/08/19 09:00 03/09/19 08:59 02/11/19 09:48 Laboratory Tests Test 02/10/19 17:40 02/11/19 06:10 02/11/19 08:57 02/11/19 10:05 Arterial Blood pH 7.418 (7.350-7.450) 7.422 (7.350-7.450) Arterial Blood Partial Pressure CO2 26.9 mmHg (35.0-45.0) L 24.0 mmHg (35.0-45.0) *L Arterial Blood Partial Pressure O2 229.9 mmHg (75.0-100.0) H 76.3 mmHg (75.0-100.0) Arterial Blood HCO3 17.0 mmol/L (22.0-26.0) *L 15.3 mmol/L (22.0-26.0) *L Arterial Blood Oxygen Saturation 99.0 % (95-100) 94.4 % (95-100) L Arterial Blood Base Excess -6.5 (-2-2) L -7.9 (-2-2) L Benny Test Positive Positive White Blood Count 5.8 K/UL (4.8-10.8) Red Blood Count 2.96 M/UL (4.70-6.10) L Hemoglobin 8.2 G/DL (14.2-18.0) L Hematocrit 25.0 % (42.0-52.0) L Mean Corpuscular Volume 85 FL (80-99) Mean Corpuscular Hemoglobin 27.6 PG (27.0-31.0) Mean Corpuscular Hemoglobin Concent 32.6 G/DL (32.0-36.0) Red Cell Distribution Width 17.8 % (11.6-14.8) H Platelet Count 153 K/UL (150-450) Mean Platelet Volume 5.7 FL (6.5-10.1) L Neutrophils (%) (Auto) % (45.0-75.0) Lymphocytes (%) (Auto) % (20.0-45.0) Monocytes (%) (Auto) % (1.0-10.0) Eosinophils (%) (Auto) % (0.0-3.0) Basophils (%) (Auto) % (0.0-2.0) Differential Total Cells Counted 100 Neutrophils % (Manual) 90 % (45-75) H Lymphocytes % (Manual) 7 % (20-45) L Monocytes % (Manual) 3 % (1-10) Eosinophils % (Manual) 0 % (0-3) Basophils % (Manual) 0 % (0-2) Band Neutrophils 0 % (0-8) Platelet Estimate Adequate Platelet Morphology Normal Anisocytosis 1+ Reticulocyte Count 0.2 % (0.5-2.0) L Prothrombin Time 10.5 SEC (9.30-11.50) Prothromb Time International Ratio 1.0 (0.9-1.1) Sodium Level 140 MMOL/L (136-145) Potassium Level 4.1 MMOL/L (3.5-5.1) Chloride Level 106 MMOL/L (98-107) Carbon Dioxide Level 18 MMOL/L (21-32) L Anion Gap 17 mmol/L (5-15) H Blood Urea Nitrogen 45 mg/dL (7-18) H Creatinine 3.3 MG/DL (0.55-1.30) #H Estimat Glomerular Filtration Rate 19.3 mL/min (>60) Glucose Level 370 MG/DL (74-106) #H Hemoglobin A1c Pending Calcium Level 7.9 MG/DL (8.5-10.1) L Iron Level 6 ug/dL (50-175) L Total Iron Binding Capacity 126 ug/dL (250-450) L Percent Iron Saturation 5 % (15-50) L Unsaturated Iron Binding 120 ug/dL (112-346) Ferritin 182 NG/ML (8-388) Total Bilirubin 0.7 MG/DL (0.2-1.0) Direct Bilirubin 0.4 MG/DL (0.0-0.3) H Lactate Dehydrogenase 311 U/L (81-234) H Troponin I 7.745 ng/mL (0.000-0.056) Pro-B-Type Natriuretic Peptide 5767 pg/mL (0-125) H Triglycerides Level 194 MG/DL (30-150) H Carcinoembryonic Antigen Pending Vitamin B12 Level 1213 PG/ML (193-986) H Thyroid Stimulating Hormone (TSH) 0.487 uiU/mL (0.358-3.740) Hepatitis A IgM Antibody Pending Hepatitis B Surface Antigen Pending Hepatitis B Core IgM Antibody Pending Hepatitis C Antibody Pending HIV-1 Antibody Pending HIV-2 Antibody Pending HIV (1&2) Antibody Rapid Preliminary positive Vancomycin Level Trough 22.8 ug/mL (5.0-12.0) H So Webb DO Feb 11, 2019 17:20
[2019-02-11] MEDS: Zosyn 3.375gm q12h **Extended infusion IVPB SCH ×2 (17:39)
[2019-02-11] MEDS: Insulin Human Regular 100units/ml 3ml IV PRN ×6 (18:58→23:17)
--- NOTE | 2019-02-11 19:30 | NUR ---
NURSE NOTES:Received pt sedated with Diprivan drip at 45mcg/kg/min at this time for light sedation, pt easily arousable to tactile stimulation, orally intubated on ac mode, 02 sat >95% with current vent setting, Pt on Insulin drip algorithm 3 and at 17u/hr of insulin, Blood sugar checked every hour, pls see result. NS at 100ml/hr also infusing well. Site atraumatic, SR on the moitor, Bp stable, afebrile. Tolerated OGT fdg Glucerna 1.5 at 35ml/hr no residuals. HOB kept elevated. On aspiration precautions. Skin is intact. Simon to gravity with minimal to moderate amt of scott yellow urine. Monitor I and O. monitor lytes. Suctioned tk whitish to light beige secretions. Pts extremities 1 + swollen other rodriges skin is intact,will continue to monitor.
[2019-02-11] MEDS: Atorvastatin 20mg tab ORAL SCH (20:35)
[2019-02-11] MEDS: Miralax 17gm pkt ORAL SCH (20:36)
[2019-02-11] MEDS: Enoxaparin 40mg Inj SUBQ SCH (20:38)
[2019-02-11] MEDS: Insulin Rate Change 1 Each MISC PRN ×3 (21:06→23:14)
--- NOTE | 2019-02-11 21:30 | NUR ---
NURSE NOTES:Suctioned whitish beige secretions moderate in amt. Turned to sides for comfort, with good skin care done.
--- NOTE | 2019-02-11 23:00 | NUR ---
NURSE NOTES:Pts was showing agitation and attempting to pull out therapeutic devices inspite aof Diprivan at 45mcg/kg/mmin. increase Diprivan drip up 50mcg/kg/min, monitor RASS score and vital signs every 15min. for 1hr.
[2019-02-12] VITALS (49 sets, daily range): BP systolic 128–215; BP diastolic 62–97
--- NOTE | 2019-02-12 | NUR ---
NURSE NOTES:pt lightly sedated at this time. Still respomd to tactile stimulation.
[2019-02-12] MEDS: SULFAMETHOXAZOLE IV SCH ×2 (00:24→12:07)
[2019-02-12] MEDS: D5W IV SCH ×2 (00:24→12:07)
[2019-02-12] MEDS: TRIMETHOPRIM IV SCH ×2 (00:24→12:07)
[2019-02-12] MEDS: Insulin Rate Change 1 Each MISC PRN ×11 (00:36→23:09)
--- NOTE | 2019-02-12 01:00 | NUR ---
NURSE NOTES:decrease fio2 to 45%.02 sat >95%.
[2019-02-12] MEDS: Insulin Human Regular 100units/ml 3ml IV PRN ×9 (02:17→14:16)
--- NOTE | 2019-02-12 03:00 | NUR ---
NURSE NOTES: complete bath with bed changed done. Insulin drip on progress.At 6.7u/hr at this time. blood sugar 202mg/dl.
[2019-02-12] MEDS: Albuterol/Ipratropium 3ml neb HHN SCH ×6 (03:06→23:23)
[2019-02-12 04:17] LABS: HEMATOCRIT 24.7 % (42.0-52.0); HEMOGLOBIN 8.2 G/DL (14.2-18.0); MEAN CORPUSCULAR VOLUME 84 FL (80-99); PLATELET COUNT 179 K/UL (150-450); RED BLOOD COUNT 2.94 M/UL (4.70-6.10); RED CELL DISTRIBUTION WIDTH 17.5 % (11.6-14.8); WHITE BLOOD COUNT 6.2 K/UL (4.8-10.8)
[2019-02-12 04:32] LABS: ANION GAP 14 mmol/L (5-15); BLOOD UREA NITROGEN 63 mg/dL (7-18); CALCIUM 7.6 MG/DL (8.5-10.1); CARBON DIOXIDE 18 MMOL/L (21-32); CHLORIDE 108 MMOL/L (98-107); CREATININE 3.8 MG/DL (0.55-1.30); SODIUM 139 MMOL/L (136-145)
--- NOTE | 2019-02-12 05:13 | NUR ---
NURSE NOTES:Blood sugar 192mg/dl- on insulin drip at 5.8 u/hr.
[2019-02-12] MEDS ORDERED: Vancomycin 1gm/D5W 275ml IVPB ONE ×4 (06:00→08:00)
[2019-02-12] MEDS: Zosyn 3.375gm q12h **Extended infusion IVPB SCH ×4 (06:08→17:24)
--- NOTE | 2019-02-12 07:00 | NUR ---
NURSE NOTES:Accucheck 202mg/dl. on 6.7u/hr of Insulin drip. Fi02 down to 35%. tolerating well.
--- NOTE | 2019-02-12 07:14 | General Progress Note ---
Assessment/Plan Problem List: (1) ISH (acute kidney injury) ICD Codes: N17.9 - Acute kidney failure, unspecified SNOMED: 85307206 (2) Uncontrolled type 2 diabetes mellitus with chronic kidney disease ICD Codes: E11.22 - Type 2 diabetes mellitus with diabetic chronic kidney disease; E11.65 - Type 2 diabetes mellitus with hyperglycemia SNOMED: 09719960, 861177140, 868290707 (3) HIV disease ICD Codes: B20 - Human immunodeficiency virus [HIV] disease SNOMED: 95241790 (4) Respiratory distress ICD Codes: R06.03 - Acute respiratory distress SNOMED: 210383614 Status: stable Assessment/Plan: insulin gtt initiated yesterday due to elevated glucose on high dose sub Q insulin continue insulin gtt for now Subjective ROS Limited/Unobtainable: Yes Allergies: Coded Allergies: No Known Allergies (Unverified , 02/05/13) Subjective events noted intubated in ICU started on insulin gtt Item Value Date Time Bedside Blood Glucose 209 mg/dl H 02/12/19 0641 Bedside Blood Glucose 225 mg/dl H 02/12/19 0224 Bedside Blood Glucose 324 mg/dl H 02/11/19 2200 Bedside Blood Glucose 432 mg/dl H 02/11/19 1858 Bedside Blood Glucose 418 mg/dl H 02/11/19 1350 Bedside Blood Glucose 393 mg/dl H 02/11/19 1020 Objective Last 24 Hour Vital Signs Date Time Temp Pulse Resp B/P (MAP) Pulse Ox O2 Delivery O2 Flow Rate FiO2 02/12/19 07:00 24 136/62 Mechanical Ventilator 35 02/12/19 06:30 80 24 142/62 (88) 98 02/12/19 06:08 24 152/82 Mechanical Ventilator 02/12/19 06:00 79 24 136/62 (86) 98 02/12/19 05:30 78 24 152/70 (97) 98 02/12/19 05:24 77 24 35 02/12/19 05:00 78 23 155/78 (103) 100 02/12/19 05:00 24 155/78 Mechanical Ventilator 02/12/19 04:30 80 23 149/74 (99) 100 02/12/19 04:00 98.0 80 24 131/92 (105) 100 02/12/19 04:00 45 02/12/19 04:00 76 02/12/19 04:00 25 151/75 Mechanical Ventilator 02/12/19 03:30 76 24 141/83 (102) 100 02/12/19 03:16 76 24 100 Mechanical Ventilator 50 02/12/19 03:06 70 24 40 02/12/19 03:06 70 24 98 Mechanical Ventilator 45 02/12/19 03:00 73 24 132/62 (85) 100 02/12/19 03:00 25 141/83 Mechanical Ventilator 45 02/12/19 02:30 75 24 158/73 (101) 100 02/12/19 02:00 24 155/65 Mechanical Ventilator 45 02/12/19 02:00 75 24 158/73 (101) 100 02/12/19 01:40 24 144/66 45 02/12/19 01:30 79 24 144/66 (92) 100 02/12/19 01:23 76 24 45 02/12/19 01:00 24 146/62 Mechanical Ventilator 50 02/12/19 01:00 75 24 143/67 (92) 100 02/12/19 00:30 73 24 146/62 (90) 100 02/12/19 00:00 97.8 72 24 145/63 (90) 100 02/12/19 00:00 24 146/62 Mechanical Ventilator 50 02/11/19 23:45 24 146/72 Mechanical Ventilator 02/11/19 23:39 74 24 100 Mechanical Ventilator 50 02/11/19 23:30 73 24 147/67 (93) 100 02/11/19 23:30 24 152/59 Mechanical Ventilator 50 02/11/19 23:29 78 25 100 Mechanical Ventilator 50 02/11/19 23:15 24 147/60 Mechanical Ventilator 02/11/19 23:14 78 25 50 02/11/19 23:00 76 24 152/71 (98) 100 02/11/19 23:00 24 150/80 Mechanical Ventilator 02/11/19 22:30 85 23 167/83 (111) 100 02/11/19 22:00 88 23 147/62 (90) 100 02/11/19 22:00 24 147/64 Mechanical Ventilator 50 02/11/19 21:30 74 24 147/64 (91) 99 02/11/19 21:00 75 24 153/64 (93) 99 02/11/19 21:00 24 153/64 Mechanical Ventilator 50.0 6/23/19 20:42 75 24 50 02/11/19 20:36 74 144/63 02/11/19 20:30 74 24 144/63 (90) 98 02/11/19 20:00 50 02/11/19 20:00 75 02/11/19 20:00 24 148/69 Mechanical Ventilator 50 02/11/19 20:00 98.4 75 24 148/69 (95) 98 02/11/19 19:24 76 26 99 Mechanical Ventilator 50 02/11/19 19:12 73 24 98 Mechanical Ventilator 50 02/11/19 19:12 74 24 50 02/11/19 19:00 24 158/68 Mechanical Ventilator 50 02/11/19 19:00 86 26 151/76 (101) 98 02/11/19 18:54 24 149/73 Mechanical Ventilator 02/11/19 18:30 74 24 149/73 (98) 98 02/11/19 18:20 24 155/77 Mechanical Ventilator 50 02/11/19 18:00 76 24 155/77 (103) 98 02/11/19 17:39 24 141/72 Mechanical Ventilator 02/11/19 17:30 74 24 141/72 (95) 96 02/11/19 17:00 76 24 140/72 (94) 95 02/11/19 17:00 24 140/72 Mechanical Ventilator 02/11/19 16:46 89 26 99 Mechanical Ventilator 50 02/11/19 16:36 82 26 97 Mechanical Ventilator 50 02/11/19 16:30 24 157/75 Mechanical Ventilator 02/11/19 16:30 79 24 157/75 (102) 96 02/11/19 16:30 82 26 50 02/11/19 16:27 82 26 97 Mechanical Ventilator 50 02/11/19 16:00 98.8 88 24 190/96 (127) 98 02/11/19 16:00 50 02/11/19 16:00 24 190/96 Mechanical Ventilator 02/11/19 16:00 89 02/11/19 15:30 92 24 140/72 (94) 96 02/11/19 15:30 24 140/72 Mechanical Ventilator 50 02/11/19 15:00 24 151/76 Mechanical Ventilator 50 02/11/19 15:00 86 26 151/76 (101) 98 02/11/19 14:59 86 24 50 6/23/19 14:30 26 150/76 Mechanical Ventilator 02/11/19 14:30 99 26 150/76 (100) 98 02/11/19 14:18 25 132/84 Mechanical Ventilator 50 02/11/19 14:00 92 25 132/84 (100) 98 02/11/19 13:41 25 141/71 Mechanical Ventilator 50 02/11/19 13:30 94 25 141/71 (94) 98 02/11/19 13:00 24 132/71 Mechanical Ventilator 50 02/11/19 13:00 85 24 132/71 (91) 98 02/11/19 12:36 84 24 50 02/11/19 12:30 24 118/65 Mechanical Ventilator 50 02/11/19 12:30 80 24 118/65 (82) 98 02/11/19 12:00 98.8 78 24 121/62 (81) 97 02/11/19 12:00 50 02/11/19 12:00 24 121/62 Mechanical Ventilator 50 02/11/19 12:00 78 02/11/19 11:30 24 121/64 Mechanical Ventilator 50 02/11/19 11:30 78 24 121/64 (83) 98 02/11/19 11:07 84 30 98 Mechanical Ventilator 50 02/11/19 11:00 78 24 125/63 (83) 98 02/11/19 11:00 24 125/63 Mechanical Ventilator 50 02/11/19 10:57 81 30 96 Mechanical Ventilator 50 02/11/19 10:50 81 30 50 02/11/19 10:30 84 30 131/66 (87) 98 02/11/19 10:30 30 131/66 Mechanical Ventilator 50 02/11/19 10:00 30 125/66 Mechanical Ventilator 50 02/11/19 10:00 88 30 125/66 (85) 99 02/11/19 09:52 148/72 02/11/19 09:51 91 148/72 02/11/19 09:51 148/72 02/11/19 09:30 30 148/72 Mechanical Ventilator 50 02/11/19 09:30 91 30 147/72 (97) 99 02/11/19 09:00 89 29 127/64 (85) 97 02/11/19 09:00 29 127/64 Mechanical Ventilator 50 02/11/19 08:42 84 30 50 02/11/19 08:30 30 125/66 Mechanical Ventilator 02/11/19 08:30 84 30 126/60 (82) 96 02/11/19 08:00 84 30 129/61 (83) 96 02/11/19 08:00 50 02/11/19 08:00 30 129/61 Mechanical Ventilator 50 02/11/19 08:00 84 02/11/19 07:30 30 133/61 Mechanical Ventilator 50 02/11/19 07:30 85 30 132/59 (83) 96 Intake and Output 02/11/19 02/12/19 19:00 07:00 Intake Total 2571.166 ml 2062.698 ml Output Total 0 ml Balance 2571.166 ml 2062.698 ml Free Water 90 ml IV Total 2186.166 ml 1552.698 ml Tube Feeding 385 ml 420 ml Stool Total 0 ml # Voids 410 610 Laboratory Tests 02/11/19 08:57: Arterial Blood pH 7.422, Arterial Blood Partial Pressure CO2 24.0*L, Arterial Blood Partial Pressure O2 76.3, Arterial Blood HCO3 15.3*L, Arterial Blood Oxygen Saturation 94.4L, Arterial Blood Base Excess -7.9L, Benny Test Positive 02/11/19 10:05: Vancomycin Level Trough 22.8H 02/12/19 03:45: White Blood Count 6.2, Red Blood Count 2.94L, Hemoglobin 8.2L, Hematocrit 24.7L , Mean Corpuscular Volume 84, Mean Corpuscular Hemoglobin 27.8, Mean Corpuscular Hemoglobin Concent 33.2, Red Cell Distribution Width 17.5H, Platelet Count 179, Mean Platelet Volume 6.5, Neutrophils (%) (Auto) , Lymphocytes (%) (Auto) , Monocytes (%) (Auto) , Eosinophils (%) (Auto) , Basophils (%) (Auto) , Sodium Level 139, Potassium Level 4.0, Chloride Level 108H, Carbon Dioxide Level 18L, Anion Gap 14, Blood Urea Nitrogen 63H, Creatinine 3.8H, Estimat Glomerular Filtration Rate 16.4, Glucose Level 210#H, Calcium Level 7.6L, Random Vancomycin Level 18.6 Height (Feet): 6 Height (Inches): 0.00 Weight (Pounds): 211 General Appearance: other - intubated EENT: other - ETT Neck: normal alignment Cardiovascular: tachycardia Respiratory/Chest: decreased breath sounds Abdomen: normal bowel sounds Pelvis: normal external exam Edema: 1+ Arm (L), 1+ Arm (R), 1+ Leg (L), 1+ Leg (R), 1+ Pedal (L), 1+ Pedal ( R), 1+ Generalized Objective Current Medications Medications (Trade) Dose Ordered Sig/Marquis Route PRN Reason Start Time Stop Time Status Last Admin Dose Admin Acetaminophen (Tylenol) 650 mg Q4H PRN ORAL Mild Pain (Pain Scale 1-3) 02/07/19 11:15 03/08/19 17:29 02/07/19 23:01 Acetaminophen/ Butalbital/ Caffeine (Fioricet) 1 tab Q8H PRN ORAL For Headache 02/08/19 17:15 03/10/19 17:14 Albuterol/ Ipratropium (Albuterol/ Ipratropium) 3 ml Q4HRT HHN 02/09/19 15:00 02/14/19 14:59 02/12/19 03:06 Alprazolam (Xanax) 0.5 mg Q6H PRN ORAL For Anxiety 02/08/19 20:15 02/15/19 20:14 02/08/19 20:51 Aspirin (Ecotrin) 81 mg DAILY ORAL 02/08/19 09:00 03/09/19 08:59 02/11/19 09:48 Atorvastatin Calcium (Lipitor) 40 mg QHS ORAL 02/08/19 21:00 03/10/19 20:59 02/11/19 20:35 Azithromycin 250 mg/Sodium Chloride 275 ml @ 275 mls/hr DAILY IV 02/08/19 09:00 02/14/19 08:59 02/11/19 09:47 Bisacodyl (Dulcolax) 5 mg DAILYPRN PRN ORAL Constipation 02/08/19 17:15 03/10/19 17:14 Cetirizine HCl (ZyrTEC) 10 mg DAILYPRN PRN ORAL Itching 02/07/19 11:30 03/09/19 11:29 Dextrose (Dextrose 50%) 25 ml Q30M PRN IV HYPOGLYCEMIA 02/11/19 17:15 03/13/19 17:14 Dextrose (Dextrose 50%) 50 ml Q30M PRN IV HYPOGLYCEMIA 02/11/19 17:15 03/13/19 17:14 Docusate Sodium (Colace) 100 mg BID GT 02/10/19 09:00 03/12/19 08:59 02/11/19 17:40 Duloxetine HCl (Cymbalta) 90 mg DAILY ORAL 02/08/19 09:00 03/09/19 08:59 02/11/19 09:50 Enoxaparin Sodium (Lovenox) 40 mg Q24H SUBQ 02/07/19 21:00 03/08/19 20:59 02/11/19 20:38 EZETIMIBE (Zetia) 10 mg BEDTIME ORAL 02/07/19 21:00 03/08/19 20:59 02/11/19 20:35 Famotidine (Pepcid) 20 mg BID ORAL 02/07/19 18:00 03/08/19 19:59 02/11/19 17:40 Ferrous Sulfate (Feosol) 325 mg THREE TIMES A DAY ORAL 02/07/19 13:00 03/09/19 08:59 02/11/19 17:39 Fluconazole/ Sodium Chloride 100 ml @ 100 mls/hr Q24H IV 02/09/19 18:00 02/16/19 17:59 02/11/19 17:41 Folic Acid (Folate) 1 mg BID ORAL 02/07/19 18:00 03/09/19 08:59 02/11/19 17:39 Guaifenesin (Mucinex ER) 600 mg TWICE A DAY ORAL 02/07/19 18:00 03/09/19 08:59 02/11/19 17:40 Hydralazine HCl (Apresoline) 25 mg Q6H PRN ORAL SBP > 160mmHg 02/07/19 11:15 03/08/19 11:14 02/08/19 15:32 Insulin Human Regular (NovoLIN R) 5 units PRN PRN IV BS 200-299 02/11/19 17:15 03/13/19 17:14 02/12/19 06:41 Insulin Human Regular (NovoLIN R) 10 units PRN PRN IV BS=>300 02/11/19 17:15 03/13/19 17:14 02/11/19 21:57 Insulin Human Regular 100 units/ Sodium Chloride 100 ml @ 0 mls/hr Q24H IV 02/11/19 17:15 03/13/19 17:14 02/12/19 01:38 Isosorbide Mononitrate (Imdur) 30 mg DAILY ORAL 02/08/19 09:00 03/09/19 08:59 02/11/19 09:51 Losartan Potassium (Cozaar) 100 mg DAILY ORAL 02/08/19 09:00 03/09/19 08:59 02/11/19 09:52 Magnesium Hydroxide (Mom) 30 ml DAILYPRN PRN ORAL Constipation 02/08/19 15:30 03/10/19 15:29 02/08/19 16:08 Methylprednisolone Sodium Succinate (Solu-MEDROL) 40 mg EVERY 12 HOURS IVP 02/10/19 21:00 03/12/19 20:59 02/11/19 20:36 Metoprolol Tartrate (Lopressor) 100 mg Q12HR ORAL 02/07/19 21:00 03/08/19 20:59 02/11/19 20:36 Miscellaneous Medication (Insulin Rate Change) 1 ea PRN PRN MISC Per rx protocol 02/11/19 17:15 03/13/19 17:14 02/12/19 05:28 Morphine Sulfate (Morphine Sulfate) 2 mg Q2H PRN IVP Moderate Pain (Pain Scale 4-6) 02/07/19 16:15 02/14/19 16:14 02/11/19 13:36 Morphine Sulfate (Morphine Sulfate) 4 mg Q2H PRN IVP Severe Pain (Pain Scale 7-10) 02/07/19 16:15 02/14/19 16:14 02/11/19 16:15 Nitroglycerin (Ntg) 0.4 mg Q5M PRN SL Prn Chest Pain 02/07/19 11:00 03/08/19 17:29 02/08/19 07:42 Ondansetron HCl (Zofran) 4 mg Q6H PRN IVP Nausea & Vomiting 02/07/19 11:15 03/08/19 11:14 02/09/19 00:58 Patient Own Medication (Patient's Own Med) 1 ea BID ORAL 02/07/19 18:00 03/09/19 17:59 02/11/19 17:41 Patient Own Medication (Patient's Own Med) 1 ea QOD ORAL 02/13/19 09:00 03/15/19 08:59 Patient Own Medication (Patient's Own Med) 2 ea DAILY ORAL 02/08/19 09:00 03/10/19 08:59 02/11/19 09:54 Piperacillin Sod/ Tazobactam Sod 3.375 gm/Sodium Chloride 110 ml @ 27.5 mls/hr Q12HR@0600,1800 IVPB 02/11/19 18:00 02/18/19 17:59 02/12/19 06:08 Polyethylene Glycol (Miralax) 17 gm BEDTIME ORAL 02/08/19 21:00 03/10/19 20:59 02/11/19 20:36 Propofol 100 ml @ 0 mls/hr Q24H IV 02/11/19 08:30 02/13/19 08:29 02/12/19 01:40 Sodium Chloride 1,000 ml @ 100 mls/hr Q10H IVLG 02/07/19 11:00 03/08/19 18:17 02/12/19 02:20 Trimethoprim/ Sulfamethoxazole 25 ml/Dextrose 575 ml @ 383.333 mls/hr Q12HR@0000,1200 IV 02/11/19 12:00 02/18/19 11:59 02/12/19 00:24 Vancomycin HCl (Vanco rx to dose) 1 ea DAILY PRN MISC . 02/10/19 19:45 03/12/19 19:44 Vancomycin HCl 1 gm/Dextrose 275 ml @ 183.708 mls/hr ONCE ONCE IVPB 02/12/19 08:00 02/12/19 09:29 Vitamin D (Vitamin D) 400 intlu DAILY ORAL 02/08/19 09:00 03/09/19 08:59 02/11/19 09:48 Carlito Nichols MD Feb 12, 2019 07:14
--- NOTE | 2019-02-12 07:27 | NUR ---
HAND-OFF: Report given to Simin ZARATE, walking rounds done.
--- NOTE | 2019-02-12 07:30 | NUR ---
NURSE NOTES: Received change of shift report from Tracy ZARATE. Pt is sedated -2 RASS score, currently on Propofol Drip at 50mcg/kg/hr; pt is noted to move extremities, and withdraws to pain. Orally intubated ETT 7.5 at 25cm left lipline, AC24, FIO2 35%, Peep 10, VT600, with O2sat at 96%, and with bilateral rhonchi/rales on auscultation. equipment monitor phototypesetting displays NSR with heart rate in the 80's, and generalized including bilateral peripheral edema, with weak radial/pedal pulses on palpation. Peripheral IV access present on right wrist #20G, infusing Propofol at 50mcg/kg/hr, left hand #20G infusing Insulin Drip at 6.7units/hr, and left AC #20G infusing NS at 100ml/hour. OG tube is in place infusing feeding Glucerna 1.5 at 35ml/hour; pt is tolerating feeding well with only 5ml residual noted. Abdomen is large, round and distended, moderately hard/nontender to touch with hypoactive bowel sounds present on all quadrants. Simon catheter is in place draining cloudy/yellow urine with sediments. Bilateral soft wrist restraints are in place to prevent pt from reaching/pulling out ET tube; with skin integrity at restraint site within normal limits. Skin is intact. Bilateral SCDs are present on lower extremities for DVT prophylaxis. Pt is on P200 mattress, with head of bed at 30degress, three side rails up, bed locked/in lowest position and call light within reach. Will continue to monitor pt and follow plan of care per MD orders and protocol.
--- NOTE | 2019-02-12 08:00 | NUR ---
NURSE NOTES: Blood glucose was checked, resulted 215, per order/algorithm protocol, insulin drip rate is maintained at 6.7unit/hour. Propofol drip maintained at 50mcg/kg/hour RASS Score -2 light sedation.
--- NOTE | 2019-02-12 08:05 | NUR ---
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 UNCONTROLLED TYPE 2 DIABETES . RESPIRATORY FAILURE VS: BP 152/82, P 86, T 98.0, RR 30, SpO2 98 on VENT AC 24, PEE 10.0, TV 600, FiO2 35 RBC 2.94, H&H 8.2/24.7, BUN 63, CR 3.8, GLUCOSE 210, A1c 7.8 IS:ALBUTEROL 3ml HHN NOVOLIN R 5units IV ZOSYN 110ml IVPB NS x1L IVLG PROPOFOL 100ml IV NOVOLIN R/NS 100ml IV TRIMETHOPRIM 575ml IV LOVENOX SUBQ LOPRESSOR 100mg SOLU-MEDROL 40mg IVP FLUCONAZOLE 100ml IV ICU STATUS
--- NOTE | 2019-02-12 09:00 | NUR ---
NURSE NOTES: Blood glucose was checked, resulted 229, per order/algorithm protocol, insulin drip rate is increased to 13units/hour. Propofol drip maintained at 50mcg/kg/hour RASS Score -2 light sedation.
[2019-02-12] MEDS: Azithromycin 250 MG in NS 275 ML IV SCH (09:37)
[2019-02-12] MEDS: Imdur 30mg tab ORAL SCH (09:38)
[2019-02-12] MEDS: Losartan 50mg tab ORAL SCH (09:38)
[2019-02-12] MEDS: Docusate 100mg/10ml Liq GT SCH ×2 (09:38→17:24)
[2019-02-12] MEDS: guaiFENesin ER 600mg tab ORAL SCH ×2 (09:38→17:24)
[2019-02-12] MEDS: Vitamin D 400 INTLU TAB ORAL SCH (09:39)
[2019-02-12] MEDS: Aspirin EC 81mg tab ORAL SCH (09:39)
[2019-02-12] MEDS: DULoxetine 30mg cap ORAL SCH (09:39)
[2019-02-12] MEDS: Solu-MEDROL 40mg Inj IVP SCH ×2 (09:40→20:01)
[2019-02-12] MEDS: ETRAVIRINE 200 MG ORAL SCH (09:40)
[2019-02-12] MEDS: RALTEGRAVIR 400 MG ORAL SCH ×2 (09:40→18:28)
--- NOTE | 2019-02-12 09:45 | Operative Note - Dictated ---
DATE OF OPERATION: 02/09/2019 SURGEON: Brett Meredith M.D. PREOPERATIVE DIAGNOSIS: Bilateral lung infiltrates/ARDS. POSTOPERATIVE DIAGNOSES: 1. Bilateral lung infiltrates/ARDS. 2. ET-tube 2 cm above christal. 3. Mildly friable mucosa. 4. Mild increased bilateral mucoid secretions. 5. Normal endobronchial anatomy to the subsegmental bronchi. PROCEDURE: Flexible fiberoptic bronchoscopy and bronchoalveolar lavage. SPECIMEN: BAL specimen. COMPLICATIONS: None. ESTIMATED BLOOD LOSS: None. ANESTHESIA: ICU sedation. DESCRIPTION OF PROCEDURE: After two-physician emergent consent was obtained, the patient was identified after formal time-out was taken. The sedation was achieved via propofol and ICU sedation. A disposable bronchoscope was advanced through the ET-tube into the trachea. The trachea was 2 cm above the christal. Careful inspection of bilateral main stem and subsegmental bronchi was done. There was mild bilateral increased mucoid secretions and friability. BAL was done bilaterally. Bronchoscope was then withdrawn. The patient tolerated procedure without difficulty. Brett Meredith M.D. DR: NORM JOB#: [id number] CC:
--- NOTE | 2019-02-12 10:00 | NUR ---
NURSE NOTES: Blood glucose was checked, resulted 200, per order/algorithm protocol, insulin drip rate is maintained at 11 units/hour. Propofol drip maintained at 50mcg/kg/hour RASS Score -2 light sedation.
--- NOTE | 2019-02-12 10:30 | NUR ---
NURSE NOTES: Pt repositioned and oral care done. VS stable.
[2019-02-12] MEDS ORDERED: Insulin Human Regular 100units/ml 3ml IV PRN ×2 (10:45)
[2019-02-12] MEDS ORDERED: Insulin Rate Change 1 Each MISC PRN (10:45)
--- NOTE | 2019-02-12 11:00 | NUR ---
NURSE NOTES: Blood glucose was checked, resulted 198, per order/algorithm protocol, insulin drip rate is maintained at 8.5 units/hour. Propofol drip maintained at 50mcg/kg/hour RASS Score -2 light sedation.
--- NOTE | 2019-02-12 11:43 | Diagnostic Imaging Report ---
Indication: Cough. TB screening Technique: Continuous helical transaxial imaging of the chest was obtained from the thoracic inlet to the upper abdomen after intravenous nonionic contrast administration. Coronal 2-D reformats were also obtained. Automatic Exposure Control was utilized. Total Dose length Product (DLP): 1227.[address] Dose Index Volume (CTDIvol): 24.1 mGy Comparison: none Findings: There is extensive consolidation in the lungs bilaterally with involvement of both upper lobes and both lower lobes. There are moderate bilateral pleural effusions present. Tuberculosis is not excludable. There is extensive parenchymal lung disease present. Patient is intubated. Endotracheal tube is in good position. NG tube is also good position. The heart is unremarkable. There is no adenopathy identified. The axilla appear clear bilaterally. Aorta and coronary artery calcifications noted consistent with atherosclerotic disease. The gallbladder is slightly dense and may be due to underlying stones or sludge. There is perinephric stranding nonspecific in nature. IMPRESSION: Extensive bilateral upper lobe infiltrates likely inflammatory/infectious. Correlate clinically. Tuberculosis is not excludable. Bilateral pleural effusions. Endotracheal tube and nasogastric tube in good position Atherosclerotic vascular disease The CT scanner at [facility] is accredited by the [employer] and the scans are performed using dose optimization techniques as appropriate to a performed exam including Automatic Exposure control.
--- NOTE | 2019-02-12 11:52 | Infectious Diseases Prog Note ---
Assessment/Plan Assessment/Plan A) 1) pneumonia - ? etiology, ? CAP, ? pcp, ? 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 Meredith Subjective Constitutional: Reports: other - on vent, fio2 now down to 35%; Denies: fever HEENT: Reports: congestion Respiratory: Reports: shortness of breath Cardiovascular: Reports: other - no pressors Gastrointestinal/Abdominal: Denies: nausea, vomiting, diarrhea Genitourinary: Reports: other - + smith Neurologic: Reports: weakness Psychiatric: Reports: other - NA Skin: Denies: rash Hematologic: Denies: bleeding Musculoskeletal: Reports: other - NA Allergies: Coded Allergies: No Known Allergies (Unverified , 02/05/13) Objective Vital Signs Last 24 Hour Vital Signs Date Time Temp Pulse Resp B/P (MAP) Pulse Ox O2 Delivery O2 Flow Rate FiO2 02/12/19 09:38 136/62 02/12/19 09:38 136/62 02/12/19 09:37 94 136/62 02/12/19 09:16 94 30 35 02/12/19 08:07 30 136/62 Mechanical Ventilator 50.0 35 02/12/19 07:15 86 30 100 Mechanical Ventilator 35 02/12/19 07:00 24 136/62 Mechanical Ventilator 35 02/12/19 07:00 84 28 35 02/12/19 07:00 84 24 96 Mechanical Ventilator 35 02/12/19 06:30 80 24 142/62 (88) 98 02/12/19 06:08 24 152/82 Mechanical Ventilator 02/12/19 06:00 79 24 136/62 (86) 98 02/12/19 05:30 78 24 152/70 (97) 98 02/12/19 05:24 77 24 35 02/12/19 05:00 78 23 155/78 (103) 100 02/12/19 05:00 24 155/78 Mechanical Ventilator 02/12/19 04:30 80 23 149/74 (99) 100 02/12/19 04:00 98.0 80 24 131/92 (105) 100 02/12/19 04:00 45 02/12/19 04:00 76 02/12/19 04:00 25 151/75 Mechanical Ventilator 02/12/19 03:30 76 24 141/83 (102) 100 02/12/19 03:16 76 24 100 Mechanical Ventilator 50 02/12/19 03:06 70 24 40 02/12/19 03:06 70 24 98 Mechanical Ventilator 45 02/12/19 03:00 73 24 132/62 (85) 100 02/12/19 03:00 25 141/83 Mechanical Ventilator 45 02/12/19 02:30 75 24 158/73 (101) 100 02/12/19 02:00 24 155/65 Mechanical Ventilator 45 02/12/19 02:00 75 24 158/73 (101) 100 02/12/19 01:40 24 144/66 45 02/12/19 01:30 79 24 144/66 (92) 100 02/12/19 01:23 76 24 45 02/12/19 01:00 24 146/62 Mechanical Ventilator 50 02/12/19 01:00 75 24 143/67 (92) 100 02/12/19 00:30 73 24 146/62 (90) 100 02/12/19 00:00 97.8 72 24 145/63 (90) 100 02/12/19 00:00 24 146/62 Mechanical Ventilator 50 02/11/19 23:45 24 146/72 Mechanical Ventilator 02/11/19 23:39 74 24 100 Mechanical Ventilator 50 02/11/19 23:30 73 24 147/67 (93) 100 02/11/19 23:30 24 152/59 Mechanical Ventilator 50 02/11/19 23:29 78 25 100 Mechanical Ventilator 50 02/11/19 23:15 24 147/60 Mechanical Ventilator 02/11/19 23:14 78 25 50 6/23/19 23:00 76 24 152/71 (98) 100 02/11/19 23:00 24 150/80 Mechanical Ventilator 02/11/19 22:30 85 23 167/83 (111) 100 02/11/19 22:00 88 23 147/62 (90) 100 02/11/19 22:00 24 147/64 Mechanical Ventilator 50 02/11/19 21:30 74 24 147/64 (91) 99 02/11/19 21:00 75 24 153/64 (93) 99 19 21:00 24 153/64 Mechanical Ventilator 50.0 02/11/19 20:42 75 24 50 02/11/19 20:36 74 144/63 02/11/19 20:30 74 24 144/63 (90) 98 02/11/19 20:00 50 02/11/19 20:00 75 02/11/19 20:00 24 148/69 Mechanical Ventilator 50 02/11/19 20:00 98.4 75 24 148/69 (95) 98 02/11/19 19:24 76 26 99 Mechanical Ventilator 50 02/11/19 19:12 73 24 98 Mechanical Ventilator 50 02/11/19 19:12 74 24 50 02/11/19 19:00 24 158/68 Mechanical Ventilator 50 02/11/19 19:00 86 26 151/76 (101) 98 02/11/19 18:54 24 149/73 Mechanical Ventilator 02/11/19 18:30 74 24 149/73 (98) 98 02/11/19 18:20 24 155/77 Mechanical Ventilator 50 02/11/19 18:00 76 24 155/77 (103) 98 02/11/19 17:39 24 141/72 Mechanical Ventilator 02/11/19 17:30 74 24 141/72 (95) 96 02/11/19 17:00 76 24 140/72 (94) 95 02/11/19 17:00 24 140/72 Mechanical Ventilator 02/11/19 16:46 89 26 99 Mechanical Ventilator 50 02/11/19 16:36 82 26 97 Mechanical Ventilator 50 02/11/19 16:30 24 157/75 Mechanical Ventilator 02/11/19 16:30 79 24 157/75 (102) 96 02/11/19 16:30 82 26 50 02/11/19 16:27 82 26 97 Mechanical Ventilator 50 02/11/19 16:00 98.8 88 24 190/96 (127) 98 02/11/19 16:00 50 02/11/19 16:00 24 190/96 Mechanical Ventilator 02/11/19 16:00 89 02/11/19 15:30 92 24 140/72 (94) 96 02/11/19 15:30 24 140/72 Mechanical Ventilator 50 02/11/19 15:00 24 151/76 Mechanical Ventilator 50 02/11/19 15:00 86 26 151/76 (101) 98 02/11/19 14:59 86 24 50 02/11/19 14:30 26 150/76 Mechanical Ventilator 02/11/19 14:30 99 26 150/76 (100) 98 02/11/19 14:18 25 132/84 Mechanical Ventilator 50 02/11/19 14:00 92 25 132/84 (100) 98 02/11/19 13:41 25 141/71 Mechanical Ventilator 50 02/11/19 13:30 94 25 141/71 (94) 98 02/11/19 13:00 24 132/71 Mechanical Ventilator 50 02/11/19 13:00 85 24 132/71 (91) 98 02/11/19 12:36 84 24 50 02/11/19 12:30 24 118/65 Mechanical Ventilator 50 02/11/19 12:30 80 24 118/65 (82) 98 02/11/19 12:00 98.8 78 24 121/62 (81) 97 02/11/19 12:00 50 02/11/19 12:00 24 121/62 Mechanical Ventilator 50 02/11/19 12:00 78 Height (Feet): 6 Height (Inches): 0.00 Weight (Pounds): 211 General Appearance: other - oral - intubated HEENT: normocephalic, atraumatic, anicteric Respiratory/Chest: crackles/rales, rhonchi - bilaterally Cardiovascular: normal rate, regular rhythm, no gallop/murmur Abdomen: normal bowel sounds, soft, non tender, no organomegaly, non distended Genitourinary: other - + smith - urine slt cloudy Extremities: no cyanosis Skin: no rash Neurologic/Psychiatric: other - weak, sedated, on vent Lymphatic: no neck adenopathy Musculoskeletal: no effusion Objective Chest x-ray - 02/10/19 - COMPARISON: Chest radiograph on 02/09/2019 FINDINGS: Hardware: Endotracheal tube terminates in the region of the mid thoracic trachea. Enteric tube courses past the diaphragm and out of the field of view. Lungs/pleura: Slightly decreased but persistent patchy consolidations in the right lung. Slightly decreased left perihilar opacities/consolidations. Possible small bilateral pleural effusions. Heart/mediastinum: Stable mild enlargement of the cardiomediastinal silhouette. Soft tissues: Unremarkable. Bones: No acute fracture. Degenerative changes of the visualized right acromioclavicular joint. Degenerative changes of the spine. Upper abdomen: Normal. 02/11/19 - chest x-ray - IMPRESSION: Slightly decreased but persistent patchy consolidations in the right lung. Slightly decreased left perihilar opacities. Findings may IMPRESSION: 1. No significant change in the interstitial and alveolar opacities in bilateral lungs. 2. Possible small bilateral pleural effusions, unchanged. represent infectious/inflammatory process and/or pulmonary edema. Possible small bilateral pleural effusions. Microbiology Date/Time Source Procedure Growth Status 02/06/19 14:15 Blood Blood Culture - Preliminary NO GROWTH AFTER 72 HOURS Resulted 02/09/19 14:45 Sputum Expectorated Received 02/06/19 17:10 Rectal Mucosa - Final NO CARBAPENEM-RESISTANT ENTEROBACTERI... Complete Microbiology Date/Time Source Procedure Growth Status 02/09/19 14:45 Sputum Expectorated Received 02/09/19 14:45 Sputum AFB Specimen Processing Tissue - Final Resulted 02/09/19 14:45 Sputum Acid Fast Bacilli Smear - Final Resulted 02/09/19 14:45 Sputum Acid Fast Bacilli Culture Pending Resulted Laboratory Tests Test 02/12/19 03:45 White Blood Count 6.2 K/UL (4.8-10.8) Red Blood Count 2.94 M/UL (4.70-6.10) L Hemoglobin 8.2 G/DL (14.2-18.0) L Hematocrit 24.7 % (42.0-52.0) L Mean Corpuscular Volume 84 FL (80-99) Mean Corpuscular Hemoglobin 27.8 PG (27.0-31.0) Mean Corpuscular Hemoglobin Concent 33.2 G/DL (32.0-36.0) Red Cell Distribution Width 17.5 % (11.6-14.8) H Platelet Count 179 K/UL (150-450) Mean Platelet Volume 6.5 FL (6.5-10.1) Neutrophils (%) (Auto) % (45.0-75.0) Lymphocytes (%) (Auto) % (20.0-45.0) Monocytes (%) (Auto) % (1.0-10.0) Eosinophils (%) (Auto) % (0.0-3.0) Basophils (%) (Auto) % (0.0-2.0) Sodium Level 139 MMOL/L (136-145) Potassium Level 4.0 MMOL/L (3.5-5.1) Chloride Level 108 MMOL/L (98-107) H Carbon Dioxide Level 18 MMOL/L (21-32) L Anion Gap 14 mmol/L (5-15) Blood Urea Nitrogen 63 mg/dL (7-18) H Creatinine 3.8 MG/DL (0.55-1.30) H Estimat Glomerular Filtration Rate 16.4 mL/min (>60) Glucose Level 210 MG/DL (74-106) #H Hemoglobin A1c 7.0 % (4.3-6.0) H Calcium Level 7.6 MG/DL (8.5-10.1) L Random Vancomycin Level 18.6 ug/mL Current Medications Medications (Trade) Dose Ordered Sig/Marquis Route PRN Reason Start Time Stop Time Status Last Admin Dose Admin Acetaminophen (Tylenol) 650 mg Q4H PRN ORAL Mild Pain (Pain Scale 1-3) 02/07/19 11:15 03/08/19 17:29 02/07/19 23:01 Acetaminophen/ Butalbital/ Caffeine (Fioricet) 1 tab Q8H PRN ORAL For Headache 02/08/19 17:15 03/10/19 17:14 Albuterol/ Ipratropium (Albuterol/ Ipratropium) 3 ml Q4HRT HHN 02/09/19 15:00 02/14/19 14:59 02/12/19 07:37 Alprazolam (Xanax) 0.5 mg Q6H PRN ORAL For Anxiety 02/08/19 20:15 02/15/19 20:14 02/08/19 20:51 Aspirin (Ecotrin) 81 mg DAILY ORAL 02/08/19 09:00 03/09/19 08:59 02/12/19 09:39 Atorvastatin Calcium (Lipitor) 40 mg QHS ORAL 02/08/19 21:00 03/10/19 20:59 02/11/19 20:35 Azithromycin 250 mg/Sodium Chloride 275 ml @ 275 mls/hr DAILY IV 02/08/19 09:00 02/14/19 08:59 02/12/19 09:37 Bisacodyl (Dulcolax) 5 mg DAILYPRN PRN ORAL Constipation 02/08/19 17:15 03/10/19 17:14 Cetirizine HCl (ZyrTEC) 10 mg DAILYPRN PRN ORAL Itching 02/07/19 11:30 03/09/19 11:29 Dextrose (Dextrose 50%) 25 ml Q30M PRN IV HYPOGLYCEMIA 02/11/19 17:15 03/13/19 17:14 Dextrose (Dextrose 50%) 50 ml Q30M PRN IV HYPOGLYCEMIA 02/11/19 17:15 03/13/19 17:14 Docusate Sodium (Colace) 100 mg BID GT 02/10/19 09:00 03/12/19 08:59 02/12/19 09:38 Duloxetine HCl (Cymbalta) 90 mg DAILY ORAL 02/08/19 09:00 03/09/19 08:59 02/12/19 09:39 Enoxaparin Sodium (Lovenox) 40 mg Q24H SUBQ 02/07/19 21:00 03/08/19 20:59 02/11/19 20:38 EZETIMIBE (Zetia) 10 mg BEDTIME ORAL 02/07/19 21:00 03/08/19 20:59 02/11/19 20:35 Famotidine (Pepcid) 20 mg BID ORAL 02/07/19 18:00 03/08/19 19:59 02/12/19 09:39 Ferrous Sulfate (Feosol) 325 mg THREE TIMES A DAY ORAL 02/07/19 13:00 03/09/19 08:59 02/12/19 09:39 Fluconazole/ Sodium Chloride 100 ml @ 100 mls/hr Q24H IV 02/09/19 18:00 02/16/19 17:59 02/11/19 17:41 Folic Acid (Folate) 1 mg BID ORAL 02/07/19 18:00 03/09/19 08:59 02/12/19 09:40 Guaifenesin (Mucinex ER) 600 mg TWICE A DAY ORAL 02/07/19 18:00 03/09/19 08:59 02/12/19 09:38 Hydralazine HCl (Apresoline) 25 mg Q6H PRN ORAL SBP > 160mmHg 02/07/19 11:15 03/08/19 11:14 02/08/19 15:32 Insulin Human Regular (NovoLIN R) 5 units PRN PRN IV BS 200-299 02/11/19 17:15 03/13/19 17:14 02/12/19 10:16 Insulin Human Regular (NovoLIN R) 10 units PRN PRN IV BS=>300 02/11/19 17:15 03/13/19 17:14 02/11/19 21:57 Insulin Human Regular 100 units/ Sodium Chloride 100 ml @ 0 mls/hr Q24H IV 02/12/19 10:42 03/14/19 10:41 02/12/19 11:10 Isosorbide Mononitrate (Imdur) 30 mg DAILY ORAL 02/08/19 09:00 03/09/19 08:59 02/12/19 09:38 Losartan Potassium (Cozaar) 100 mg DAILY ORAL 02/08/19 09:00 03/09/19 08:59 02/12/19 09:38 Magnesium Hydroxide (Mom) 30 ml DAILYPRN PRN ORAL Constipation 02/08/19 15:30 03/10/19 15:29 02/08/19 16:08 Methylprednisolone Sodium Succinate (Solu-MEDROL) 40 mg EVERY 12 HOURS IVP 02/10/19 21:00 03/12/19 20:59 02/12/19 09:40 Metoprolol Tartrate (Lopressor) 100 mg Q12HR ORAL 02/07/19 21:00 03/08/19 20:59 02/12/19 09:37 Miscellaneous Medication (Insulin Rate Change) 1 ea PRN PRN MISC Per rx protocol 02/11/19 17:15 03/13/19 17:14 02/12/19 05:28 Morphine Sulfate (Morphine Sulfate) 2 mg Q2H PRN IVP Moderate Pain (Pain Scale 4-6) 02/07/19 16:15 02/14/19 16:14 02/11/19 13:36 Morphine Sulfate (Morphine Sulfate) 4 mg Q2H PRN IVP Severe Pain (Pain Scale 7-10) 02/07/19 16:15 02/14/19 16:14 02/11/19 16:15 Nitroglycerin (Ntg) 0.4 mg Q5M PRN SL Prn Chest Pain 02/07/19 11:00 03/08/19 17:29 02/08/19 07:42 Ondansetron HCl (Zofran) 4 mg Q6H PRN IVP Nausea & Vomiting 02/07/19 11:15 03/08/19 11:14 02/09/19 00:58 Patient Own Medication (Patient's Own Med) 1 ea BID ORAL 02/07/19 18:00 03/09/19 17:59 02/12/19 09:40 Patient Own Medication (Patient's Own Med) 1 ea QOD ORAL 02/13/19 09:00 03/15/19 08:59 Patient Own Medication (Patient's Own Med) 2 ea DAILY ORAL 02/08/19 09:00 03/10/19 08:59 02/12/19 09:40 Piperacillin Sod/ Tazobactam Sod 3.375 gm/Sodium Chloride 110 ml @ 27.5 mls/hr Q12HR@0600,1800 IVPB 02/11/19 18:00 02/18/19 17:59 02/12/19 06:08 Polyethylene Glycol (Miralax) 17 gm BEDTIME ORAL 02/08/19 21:00 03/10/19 20:59 02/11/19 20:36 Propofol 100 ml @ 0 mls/hr Q24H IV 02/11/19 08:30 02/13/19 08:29 02/12/19 08:07 Sodium Chloride 1,000 ml @ 100 mls/hr Q10H IVLG 02/07/19 11:00 03/08/19 18:17 02/12/19 11:11 Trimethoprim/ Sulfamethoxazole 25 ml/Dextrose 575 ml @ 383.333 mls/hr Q12HR@0000,1200 IV 02/11/19 12:00 02/18/19 11:59 02/12/19 00:24 Vancomycin HCl (Vanco rx to dose) 1 ea DAILY PRN MISC . 02/10/19 19:45 03/12/19 19:44 Vitamin D (Vitamin D) 400 intlu DAILY ORAL 02/08/19 09:00 03/09/19 08:59 02/12/19 09:39 Russ Tony MD Feb 12, 2019 11:52
--- NOTE | 2019-02-12 12:00 | NUR ---
NURSE NOTES: Blood glucose was checked, resulted 174, per order/algorithm protocol, insulin drip rate is decreased to 7 units/hour. Propofol drip maintained at 50mcg/kg/hour RASS Score -2 light sedation.
[2019-02-12] MEDS: Morphine Sulfate 4mg/ml Inj (IV USE ONLY) IVP PRN ×3 (12:13→20:01)
--- NOTE | 2019-02-12 12:21 | Pulmonolgy Critical Care Note ---
Critical Care - Asmt/Plan Problems: (1) Endotracheally intubated (2) Acute hypoxemic respiratory failure (3) Pneumonia (4) NSTEMI (non-ST elevated myocardial infarction) (5) AIDS (6) HIV disease (7) Hypertension (8) MDD (major depressive disorder), recurrent episode, moderate (9) Anemia (10) CKD (chronic kidney disease) (11) History of stroke (12) Diabetes (13) Anxiety (14) Malignant hypertension Assessment/Plan: VDRF ARDS Acute respiratory failure B pulmonary infiltrates, ? multilobar CAP vs atypical infection vs other ? PJP AIDS (CD4 191) NSTEMI H/O prior CVA HTN HL DM with uncontrolled BS ISH on CKD Anemia PLAN: Decrease TV to 550, continue RR 24 Keep FiO2 @ 35, start decreasing PEEP to keep SaO2 >92% RTC and PRN HHN's Continue Abx per ID (Zosyn, Vanco, TMP-SMX) + flucon per ID F/U Cx's and BAL studies Continue SM 40 IV BID Monitor volumes and renal function, mIVF, nephrology consultation, consider UF/ HD F/U cards recs: ASA, statin, ARB, per cards hold off on IVUH, continue LMWH Px, will need further ischemia eval/cath once stabilized DVT Px: LMWH Continue insulin gtt, F/U ENDO recs ICU sedation, continue Propofol, monitor triglycerides F/U abd US, monitor distention D/W Drs. 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, ID, other - heme-onc Discussed with: consultants Critical Care - Objective Last 24 Hour Vital Signs Date Time Temp Pulse Resp B/P (MAP) Pulse Ox O2 Delivery O2 Flow Rate FiO2 02/12/19 11:38 30 136/62 Mechanical Ventilator 50.0 35 02/12/19 11:15 90 22 100 Mechanical Ventilator 35 02/12/19 11:00 88 22 95 Mechanical Ventilator 35 02/12/19 11:00 76 24 35 02/12/19 09:38 136/62 02/12/19 09:38 136/62 02/12/19 09:37 94 136/62 02/12/19 09:16 94 30 35 02/12/19 08:07 30 136/62 Mechanical Ventilator 50.0 35 02/12/19 07:15 86 30 100 Mechanical Ventilator 35 02/12/19 07:00 24 136/62 Mechanical Ventilator 35 02/12/19 07:00 84 28 35 02/12/19 07:00 84 24 96 Mechanical Ventilator 35 02/12/19 06:30 80 24 142/62 (88) 98 02/12/19 06:08 24 152/82 Mechanical Ventilator 02/12/19 06:00 79 24 136/62 (86) 98 02/12/19 05:30 78 24 152/70 (97) 98 02/12/19 05:24 77 24 35 02/12/19 05:00 78 23 155/78 (103) 100 02/12/19 05:00 24 155/78 Mechanical Ventilator 02/12/19 04:30 80 23 149/74 (99) 100 02/12/19 04:00 98.0 80 24 131/92 (105) 100 02/12/19 04:00 45 02/12/19 04:00 76 02/12/19 04:00 25 151/75 Mechanical Ventilator 02/12/19 03:30 76 24 141/83 (102) 100 02/12/19 03:16 76 24 100 Mechanical Ventilator 50 02/12/19 03:06 70 24 40 02/12/19 03:06 70 24 98 Mechanical Ventilator 45 02/12/19 03:00 73 24 132/62 (85) 100 02/12/19 03:00 25 141/83 Mechanical Ventilator 45 02/12/19 02:30 75 24 158/73 (101) 100 02/12/19 02:00 24 155/65 Mechanical Ventilator 45 02/12/19 02:00 75 24 158/73 (101) 100 02/12/19 01:40 24 144/66 45 02/12/19 01:30 79 24 144/66 (92) 100 02/12/19 01:23 76 24 45 02/12/19 01:00 24 146/62 Mechanical Ventilator 50 02/12/19 01:00 75 24 143/67 (92) 100 02/12/19 00:30 73 24 146/62 (90) 100 02/12/19 00:00 97.8 72 24 145/63 (90) 100 02/12/19 00:00 24 146/62 Mechanical Ventilator 50 02/11/19 23:45 24 146/72 Mechanical Ventilator 02/11/19 23:39 74 24 100 Mechanical Ventilator 50 02/11/19 23:30 73 24 147/67 (93) 100 02/11/19 23:30 24 152/59 Mechanical Ventilator 50 02/11/19 23:29 78 25 100 Mechanical Ventilator 50 02/11/19 23:15 24 147/60 Mechanical Ventilator 02/11/19 23:14 78 25 50 02/11/19 23:00 76 24 152/71 (98) 100 02/11/19 23:00 24 150/80 Mechanical Ventilator 02/11/19 22:30 85 23 167/83 (111) 100 02/11/19 22:00 88 23 147/62 (90) 100 02/11/19 22:00 24 147/64 Mechanical Ventilator 50 02/11/19 21:30 74 24 147/64 (91) 99 02/11/19 21:00 75 24 153/64 (93) 99 02/11/19 21:00 24 153/64 Mechanical Ventilator 50.0 02/11/19 20:42 75 24 50 02/11/19 20:36 74 144/63 02/11/19 20:30 74 24 144/63 (90) 98 19 20:00 50 02/11/19 20:00 75 02/11/19 20:00 24 148/69 Mechanical Ventilator 50 02/11/19 20:00 98.4 75 24 148/69 (95) 98 02/11/19 19:24 76 26 99 Mechanical Ventilator 50 02/11/19 19:12 73 24 98 Mechanical Ventilator 50 02/11/19 19:12 74 24 50 02/11/19 19:00 24 158/68 Mechanical Ventilator 50 02/11/19 19:00 86 26 151/76 (101) 98 02/11/19 18:54 24 149/73 Mechanical Ventilator 02/11/19 18:30 74 24 149/73 (98) 98 19 18:20 24 155/77 Mechanical Ventilator 50 02/11/19 18:00 76 24 155/77 (103) 98 02/11/19 17:39 24 141/72 Mechanical Ventilator 02/11/19 17:30 74 24 141/72 (95) 96 02/11/19 17:00 76 24 140/72 (94) 95 02/11/19 17:00 24 140/72 Mechanical Ventilator 02/11/19 16:46 89 26 99 Mechanical Ventilator 50 02/11/19 16:36 82 26 97 Mechanical Ventilator 50 02/11/19 16:30 24 157/75 Mechanical Ventilator 02/11/19 16:30 79 24 157/75 (102) 96 02/11/19 16:30 82 26 50 02/11/19 16:27 82 26 97 Mechanical Ventilator 50 02/11/19 16:00 98.8 88 24 190/96 (127) 98 02/11/19 16:00 50 02/11/19 16:00 24 190/96 Mechanical Ventilator 02/11/19 16:00 89 02/11/19 15:30 92 24 140/72 (94) 96 02/11/19 15:30 24 140/72 Mechanical Ventilator 50 02/11/19 15:00 24 151/76 Mechanical Ventilator 50 02/11/19 15:00 86 26 151/76 (101) 98 02/11/19 14:59 86 24 50 02/11/19 14:30 26 150/76 Mechanical Ventilator 02/11/19 14:30 99 26 150/76 (100) 98 02/11/19 14:18 25 132/84 Mechanical Ventilator 50 02/11/19 14:00 92 25 132/84 (100) 98 02/11/19 13:41 25 141/71 Mechanical Ventilator 50 02/11/19 13:30 94 25 141/71 (94) 98 02/11/19 13:00 24 132/71 Mechanical Ventilator 50 02/11/19 13:00 85 24 132/71 (91) 98 02/11/19 12:36 84 24 50 02/11/19 12:30 24 118/65 Mechanical Ventilator 50 02/11/19 12:30 80 24 118/65 (82) 98 Status: other - intubated, sedated Condition: critical HEENT: atraumatic, normocephalic, other - OGT, ETT Lungs: rhonchi Heart: HR/BP stable Abdomen: soft, non-tender, active bowel sounds, distended Extremities: no C/C/E Micro: Microbiology Date/Time Source Procedure Growth Status 02/09/19 14:45 Sputum Expectorated Received 02/09/19 14:45 Sputum AFB Specimen Processing Tissue - Final Resulted 02/09/19 14:45 Sputum Acid Fast Bacilli Smear - Final Resulted 02/09/19 14:45 Sputum Acid Fast Bacilli Culture Pending Resulted Accucheck: 198 Blood Sugars: BS not controlled Critical Care - Subjective ROS Limited/Unobtainable: Yes ICU Day: 7 Intubation Day: 5 Interval Events: Intubated tuesday, bronched by me, gas exchange decompensated by sat am, improved with vent changes Now on AC 24 TV 600 35/10 breathing @ set rate Sedated on propofol gtt, also on insulin gtt Progressive ISH despite IVF No sig secretions, stable on vent Condition: critical IV Access: peripheral - IV x 2 EKG Rhythm: Sinus Rhythm FI02: 35 Vent Support Breath Rate: 24 Vent Support Mode: AC Vent Tidal Volume: 600 Sputum Amount: Small PEEP: 10.0 PIP: 24 Secretions: minimal Fluids: NS@100 Drips: Propofol gtt, insulin gtt Tube Feeding Amount: 35 Residuals: 0 I&O: Intake and Output 02/11/19 02/12/19 19:00 07:00 Intake Total 2571.166 ml 2508.198 ml Output Total 0 ml Balance 2571.166 ml 2508.198 ml Free Water 90 ml IV Total 2186.166 ml 1963.198 ml Tube Feeding 385 ml 455 ml Stool Total 0 ml # Voids 410 660 Subjective: Sedated on propofol CXR: B infiltrates unchanged ET-Tube: 7.5 ET Position: 25 Labs: Laboratory Tests Test 02/12/19 03:45 White Blood Count 6.2 K/UL (4.8-10.8) Red Blood Count 2.94 M/UL (4.70-6.10) L Hemoglobin 8.2 G/DL (14.2-18.0) L Hematocrit 24.7 % (42.0-52.0) L Mean Corpuscular Volume 84 FL (80-99) Mean Corpuscular Hemoglobin 27.8 PG (27.0-31.0) Mean Corpuscular Hemoglobin Concent 33.2 G/DL (32.0-36.0) Red Cell Distribution Width 17.5 % (11.6-14.8) H Platelet Count 179 K/UL (150-450) Mean Platelet Volume 6.5 FL (6.5-10.1) Neutrophils (%) (Auto) % (45.0-75.0) Lymphocytes (%) (Auto) % (20.0-45.0) Monocytes (%) (Auto) % (1.0-10.0) Eosinophils (%) (Auto) % (0.0-3.0) Basophils (%) (Auto) % (0.0-2.0) Sodium Level 139 MMOL/L (136-145) Potassium Level 4.0 MMOL/L (3.5-5.1) Chloride Level 108 MMOL/L (98-107) H Carbon Dioxide Level 18 MMOL/L (21-32) L Anion Gap 14 mmol/L (5-15) Blood Urea Nitrogen 63 mg/dL (7-18) H Creatinine 3.8 MG/DL (0.55-1.30) H Estimat Glomerular Filtration Rate 16.4 mL/min (>60) Glucose Level 210 MG/DL (74-106) #H Hemoglobin A1c 7.0 % (4.3-6.0) H Calcium Level 7.6 MG/DL (8.5-10.1) L Random Vancomycin Level 18.6 ug/mL Brett Meredith MD Feb 12, 2019 12:21
--- NOTE | 2019-02-12 12:30 | NUR ---
NURSE NOTES: Pt was seen by Dr Meredith. Per MD order, VT was decreased to 550, Peep titrated down to 5.0 and O2sat maintained above 90% with FIO2 of 35%. MD aware regarding loose-connection of the [id number] to the vent-tubing. Connection becomes dislodged when pt moves or coughs. Connection has been secured with tape by RT. MD aware. VS stable. Oral care given, pt suctioned.
--- NOTE | 2019-02-12 12:50 | Cardiac Electrophysiology PN ---
Assessment/Plan Assessment/Plan 1. Non-ST elevation myocardial infarction with peak troponin of more than 10. Down to 2 and back up to 7. EKG shows nonspecific ST-T wave abnormalities. Consider cardiac catheterization after stabilized. Continue aspirin, Lipitor, Imdur and metoprolol 100 mg b.i.d. 2. Hypertension. Continue metoprolol 100 mg b.i.d., losartan 100 mg daily, and Imdur 30 mg daily and p.r.n. hydralazine. 3. Respiratory failure due to Multilobar Pneumonia. Off respiratory isolation now per Dr. Mitchell 4. Hyperlipidemia. On Lipitor. 5. Human immunodeficiency virus. On anti-retroviral therapy with undetectable viral load. CANDELARIO RN Subjective Subjective In ICU on the vent.Resp isolation was cancelled. Off pressors. On Max dose of propofol. Also on insulin drip Objective Last 24 Hour Vital Signs Date Time Temp Pulse Resp B/P (MAP) Pulse Ox O2 Delivery O2 Flow Rate FiO2 02/12/19 12:43 98.0 02/12/19 11:38 30 136/62 Mechanical Ventilator 50.0 35 02/12/19 11:15 90 22 100 Mechanical Ventilator 35 02/12/19 11:00 88 22 95 Mechanical Ventilator 35 02/12/19 11:00 76 24 35 02/12/19 09:38 136/62 02/12/19 09:38 136/62 02/12/19 09:37 94 136/62 02/12/19 09:16 94 30 35 02/12/19 08:07 30 136/62 Mechanical Ventilator 50.0 35 02/12/19 07:15 86 30 100 Mechanical Ventilator 35 02/12/19 07:00 24 136/62 Mechanical Ventilator 35 02/12/19 07:00 84 28 35 02/12/19 07:00 84 24 96 Mechanical Ventilator 35 02/12/19 06:30 80 24 142/62 (88) 98 02/12/19 06:08 24 152/82 Mechanical Ventilator 02/12/19 06:00 79 24 136/62 (86) 98 02/12/19 05:30 78 24 152/70 (97) 98 02/12/19 05:24 77 24 35 02/12/19 05:00 78 23 155/78 (103) 100 02/12/19 05:00 24 155/78 Mechanical Ventilator 02/12/19 04:30 80 23 149/74 (99) 100 02/12/19 04:00 98.0 80 24 131/92 (105) 100 02/12/19 04:00 45 02/12/19 04:00 76 02/12/19 04:00 25 151/75 Mechanical Ventilator 02/12/19 03:30 76 24 141/83 (102) 100 02/12/19 03:16 76 24 100 Mechanical Ventilator 50 02/12/19 03:06 70 24 40 02/12/19 03:06 70 24 98 Mechanical Ventilator 45 02/12/19 03:00 73 24 132/62 (85) 100 02/12/19 03:00 25 141/83 Mechanical Ventilator 45 02/12/19 02:30 75 24 158/73 (101) 100 02/12/19 02:00 24 155/65 Mechanical Ventilator 45 02/12/19 02:00 75 24 158/73 (101) 100 02/12/19 01:40 24 144/66 45 02/12/19 01:30 79 24 144/66 (92) 100 02/12/19 01:23 76 24 45 02/12/19 01:00 24 146/62 Mechanical Ventilator 50 02/12/19 01:00 75 24 143/67 (92) 100 02/12/19 00:30 73 24 146/62 (90) 100 02/12/19 00:00 97.8 72 24 145/63 (90) 100 02/12/19 00:00 24 146/62 Mechanical Ventilator 50 02/11/19 23:45 24 146/72 Mechanical Ventilator 02/11/19 23:39 74 24 100 Mechanical Ventilator 50 02/11/19 23:30 73 24 147/67 (93) 100 02/11/19 23:30 24 152/59 Mechanical Ventilator 50 02/11/19 23:29 78 25 100 Mechanical Ventilator 50 02/11/19 23:15 24 147/60 Mechanical Ventilator 02/11/19 23:14 78 25 50 02/11/19 23:00 76 24 152/71 (98) 100 02/11/19 23:00 24 150/80 Mechanical Ventilator 02/11/19 22:30 85 23 167/83 (111) 100 02/11/19 22:00 88 23 147/62 (90) 100 02/11/19 22:00 24 147/64 Mechanical Ventilator 50 02/11/19 21:30 74 24 147/64 (91) 99 02/11/19 21:00 75 24 153/64 (93) 99 02/11/19 21:00 24 153/64 Mechanical Ventilator 50.0 02/11/19 20:42 75 24 50 02/11/19 20:36 74 144/63 02/11/19 20:30 74 24 144/63 (90) 98 02/11/19 20:00 50 02/11/19 20:00 75 02/11/19 20:00 24 148/69 Mechanical Ventilator 50 02/11/19 20:00 98.4 75 24 148/69 (95) 98 02/11/19 19:24 76 26 99 Mechanical Ventilator 50 02/11/19 19:12 73 24 98 Mechanical Ventilator 50 02/11/19 19:12 74 24 50 02/11/19 19:00 24 158/68 Mechanical Ventilator 50 02/11/19 19:00 86 26 151/76 (101) 98 02/11/19 18:54 24 149/73 Mechanical Ventilator 02/11/19 18:30 74 24 149/73 (98) 98 02/11/19 18:20 24 155/77 Mechanical Ventilator 50 02/11/19 18:00 76 24 155/77 (103) 98 02/11/19 17:39 24 141/72 Mechanical Ventilator 02/11/19 17:30 74 24 141/72 (95) 96 02/11/19 17:00 76 24 140/72 (94) 95 02/11/19 17:00 24 140/72 Mechanical Ventilator 02/11/19 16:46 89 26 99 Mechanical Ventilator 50 02/11/19 16:36 82 26 97 Mechanical Ventilator 50 02/11/19 16:30 24 157/75 Mechanical Ventilator 02/11/19 16:30 79 24 157/75 (102) 96 02/11/19 16:30 82 26 50 02/11/19 16:27 82 26 97 Mechanical Ventilator 50 02/11/19 16:00 98.8 88 24 190/96 (127) 98 02/11/19 16:00 50 02/11/19 16:00 24 190/96 Mechanical Ventilator 02/11/19 16:00 89 02/11/19 15:30 92 24 140/72 (94) 96 02/11/19 15:30 24 140/72 Mechanical Ventilator 50 02/11/19 15:00 24 151/76 Mechanical Ventilator 50 02/11/19 15:00 86 26 151/76 (101) 98 02/11/19 14:59 86 24 50 02/11/19 14:30 26 150/76 Mechanical Ventilator 02/11/19 14:30 99 26 150/76 (100) 98 02/11/19 14:18 25 132/84 Mechanical Ventilator 50 02/11/19 14:00 92 25 132/84 (100) 98 02/11/19 13:41 25 141/71 Mechanical Ventilator 50 02/11/19 13:30 94 25 141/71 (94) 98 02/11/19 13:00 24 132/71 Mechanical Ventilator 50 02/11/19 13:00 85 24 132/71 (91) 98 Intake and Output 02/11/19 02/12/19 19:00 07:00 Intake Total 2571.166 ml 2508.198 ml Output Total 0 ml Balance 2571.166 ml 2508.198 ml Free Water 90 ml IV Total 2186.166 ml 1963.198 ml Tube Feeding 385 ml 455 ml Stool Total 0 ml # Voids 410 660 Laboratory Tests Test 02/12/19 03:45 White Blood Count 6.2 K/UL (4.8-10.8) Red Blood Count 2.94 M/UL (4.70-6.10) L Hemoglobin 8.2 G/DL (14.2-18.0) L Hematocrit 24.7 % (42.0-52.0) L Mean Corpuscular Volume 84 FL (80-99) Mean Corpuscular Hemoglobin 27.8 PG (27.0-31.0) Mean Corpuscular Hemoglobin Concent 33.2 G/DL (32.0-36.0) Red Cell Distribution Width 17.5 % (11.6-14.8) H Platelet Count 179 K/UL (150-450) Mean Platelet Volume 6.5 FL (6.5-10.1) Neutrophils (%) (Auto) % (45.0-75.0) Lymphocytes (%) (Auto) % (20.0-45.0) Monocytes (%) (Auto) % (1.0-10.0) Eosinophils (%) (Auto) % (0.0-3.0) Basophils (%) (Auto) % (0.0-2.0) Sodium Level 139 MMOL/L (136-145) Potassium Level 4.0 MMOL/L (3.5-5.1) Chloride Level 108 MMOL/L (98-107) H Carbon Dioxide Level 18 MMOL/L (21-32) L Anion Gap 14 mmol/L (5-15) Blood Urea Nitrogen 63 mg/dL (7-18) H Creatinine 3.8 MG/DL (0.55-1.30) H Estimat Glomerular Filtration Rate 16.4 mL/min (>60) Glucose Level 210 MG/DL (74-106) #H Hemoglobin A1c 7.0 % (4.3-6.0) H Calcium Level 7.6 MG/DL (8.5-10.1) L Random Vancomycin Level 18.6 ug/mL Microbiology Date/Time Source Procedure Growth Status 02/09/19 14:45 Sputum Expectorated Received 02/09/19 14:45 Sputum AFB Specimen Processing Tissue - Final Resulted 02/09/19 14:45 Sputum Acid Fast Bacilli Smear - Final Resulted 02/09/19 14:45 Sputum Acid Fast Bacilli Culture Pending Resulted Objective HEAD AND NECK: No JVD.Orally intubated LUNGS: Coarse rhonchi. CARDIOVASCULAR: Regular S1 and S2 with no gallop or murmur. ABDOMEN: Soft. EXTREMITIES: No pitting edema. Murray Francois MD Feb 12, 2019 12:50
--- NOTE | 2019-02-12 13:00 | NUR ---
NURSE NOTES: Blood glucose was checked, resulted 199, per order/algorithm protocol, insulin drip rate is increased to 8.5 units/hour. Propofol drip maintained at 50mcg/kg/hour RASS Score -2 light sedation.
[2019-02-12 13:19] LABS: ALANINE AMINOTRANSFERASE 77 U/L (12-78); ALBUMIN 1.8 G/DL (3.4-5.0); ALKALINE PHOSPHATASE 264 U/L (46-116); ASPARTATE AMINO TRANSFERASE 63 U/L (15-37); BILIRUBIN,DIRECT 0.2 MG/DL (0.0-0.3); BILIRUBIN,TOTAL 0.3 MG/DL (0.2-1.0); PHOSPHORUS 3.9 MG/DL (2.5-4.9)
--- NOTE | 2019-02-12 13:30 | NUR ---
NURSE NOTES: OG feeding was held for 4 hours per biomedical engineering technician, prior to abdominal ultrasound, feeding held at 0900 and resumed at 1300.
--- NOTE | 2019-02-12 14:00 | NUR ---
NURSE NOTES: Blood glucose was checked, resulted 224, per order/algorithm protocol, insulin drip rate is increased to 13 units/hour. Propofol drip maintained at 50mcg/kg/hour RASS Score -2 light sedation.
--- NOTE | 2019-02-12 14:11 | Diagnostic Imaging Report ---
Indication: Abdominal pain Technique: Grayscale and duplex Doppler imaging of the abdomen performed. Comparison: None Findings: The liver is enlarged measuring 19 cm. Doppler interrogation of the main portal vein shows patency with hepatopedal, monophasic flow. There is no biliary ductal dilitation identified. The CBD measures 5 mm. Spleen is 14 cm. The gallbladder is unremarkable. There are no gallstones or wall thickening identified. Sonographic alonzo's sign was equivocal per technologist. The demonstrated part of the pancreas, aorta and IVC show no abnormalities. Both kidneys appear unremarkable. There is no hydronephrosis. Trace ascites noted. Bilateral pleural effusions are present. IMPRESSION: Hepatosplenomegaly. Trace ascites Bilateral pleural effusions
--- NOTE | 2019-02-12 14:30 | NUR ---
NURSE NOTES: Pt repositioned and oral care done. VS stable.
--- NOTE | 2019-02-12 15:00 | NUR ---
NURSE NOTES: Blood glucose was checked, resulted 186, per order/algorithm protocol, insulin drip rate is decreased to 8.5 units/hour. Propofol drip maintained at 50mcg/kg/hour RASS Score -2 light sedation.
--- NOTE | 2019-02-12 15:34 | Hematology/Onc Progress Note ---
Assessment/Plan Assessment/Plan ASSESSMENT AND RECOMMENDATIONS # Anemia of chronic disease due to underlying chronic medical issues, multifactorial --> Anemia workup has been reviewed. Ferritin 182 --> No evidence of hemolysis is noted, peripheral smear has been reviewed. --> Hgb goal >7. Transfuse prn. --> Epogen or iron at this time is not particularly indicated --> Medications have been reviewed --> low threshold for gi evaluation in case has occult + --> bone marrow biopsy is not indicated given the other more likely causes --> Blood tx: 1 unit on 02/10/19, --> Hgb trend: 02/24-->8.2 # Thrombocytopenia - potential causes multifactorial, likely related to HIV status --> Hep panel pending and HIV confirmed positive --> US abd to evaluate for cirrhosis and hsm -->revealed ++ Hepatosplenomegaly.Trace ascitesBilateral pleural effusions --> Peripheral smear ordered to evaluate for blasts /schistocytes --> abx and other meds have been reviewed --> ok for ppx if plt >50k w/ either heparin or lovenox --> Transfuse if Plt < 20k and fever, or if Plt < 10k without fever --> Plt trend: 153--> # Multilobar pneumonia in patient with HIV. Recs per ID. --> Broad sp atbx started. Continue Zosyn, Vancomycin and Azithromycin --> Droplet precaution # Hypoxemic respiratory failure. Pulm is following, appreciate recs. --> Due to pneumonia, on abx # Chest pain. 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 --> Trend troponin x3 # HIV. --> Continue HARRT --> VL is undetectable per patient report. # HTN --> Resume home medication # DVT and GI ppx The time the note is entered does not reflect the time the patient was examined. I greatly appreciate the consultation. Subjective Allergies: Coded Allergies: No Known Allergies (Unverified , 02/05/13) Subjective Subjective ROS Limited/Unobtainable: Yes Hematologic/Lymphatic: Reports: anemia Allergies: Coded Allergies: No Known Allergies (Unverified , 02/05/13) Subjective 02/11: Hgb yesterday was 7.6, s/p 1 unit prbc. Current hgb at 8.2. Pt attempted to pull out tubes per nursing team, soft restraints applied. 02/12: On, [place] isolation. Objective Objective Current Medications Medications (Trade) Dose Ordered Sig/Marquis Route PRN Reason Start Time Stop Time Status Last Admin Dose Admin Acetaminophen (Tylenol) 650 mg Q4H PRN ORAL Mild Pain (Pain Scale 1-3) 02/07/19 11:15 03/08/19 17:29 02/07/19 23:01 Acetaminophen/ Butalbital/ Caffeine (Fioricet) 1 tab Q8H PRN ORAL For Headache 02/08/19 17:15 03/10/19 17:14 Albuterol/ Ipratropium (Albuterol/ Ipratropium) 3 ml Q4HRT HHN 02/09/19 15:00 02/14/19 14:59 02/12/19 15:27 Alprazolam (Xanax) 0.5 mg Q6H PRN ORAL For Anxiety 02/08/19 20:15 02/15/19 20:14 02/08/19 20:51 Aspirin (Ecotrin) 81 mg DAILY ORAL 02/08/19 09:00 03/09/19 08:59 02/12/19 09:39 Atorvastatin Calcium (Lipitor) 40 mg QHS ORAL 02/08/19 21:00 03/10/19 20:59 02/11/19 20:35 Bisacodyl (Dulcolax) 5 mg DAILYPRN PRN ORAL Constipation 02/08/19 17:15 03/10/19 17:14 Dextrose (Dextrose 50%) 25 ml Q30M PRN IV HYPOGLYCEMIA 02/11/19 17:15 03/13/19 17:14 Dextrose (Dextrose 50%) 50 ml Q30M PRN IV HYPOGLYCEMIA 02/11/19 17:15 03/13/19 17:14 Docusate Sodium (Colace) 100 mg BID GT 02/10/19 09:00 03/12/19 08:59 02/12/19 09:38 Enoxaparin Sodium (Lovenox) 40 mg Q24H SUBQ 02/07/19 21:00 03/08/19 20:59 02/11/19 20:38 EZETIMIBE (Zetia) 10 mg BEDTIME ORAL 02/07/19 21:00 7/18/19 20:59 02/11/19 20:35 Fluconazole/ Sodium Chloride 100 ml @ 100 mls/hr Q24H IV 02/09/19 18:00 02/16/19 17:59 02/11/19 17:41 Folic Acid (Folate) 1 mg BID ORAL 02/07/19 18:00 03/09/19 08:59 02/12/19 09:40 Guaifenesin (Mucinex ER) 600 mg TWICE A DAY ORAL 02/07/19 18:00 03/09/19 08:59 02/12/19 09:38 Hydralazine HCl (Apresoline) 25 mg Q6H PRN ORAL SBP > 160mmHg 02/07/19 11:15 03/08/19 11:14 02/08/19 15:32 Insulin Human Regular (NovoLIN R) 5 units PRN PRN IV BS 200-299 02/11/19 17:15 03/13/19 17:14 02/12/19 14:16 Insulin Human Regular (NovoLIN R) 10 units PRN PRN IV BS=>300 02/11/19 17:15 03/13/19 17:14 02/11/19 21:57 Insulin Human Regular 100 units/ Sodium Chloride 100 ml @ 0 mls/hr Q24H IV 02/12/19 10:42 03/14/19 10:41 02/12/19 11:10 Lansoprazole (Prevacid) 30 mg BID NG 02/12/19 18:00 03/14/19 17:59 Losartan Potassium (Cozaar) 100 mg DAILY ORAL 02/08/19 09:00 03/09/19 08:59 02/12/19 09:38 Magnesium Hydroxide (Mom) 30 ml DAILYPRN PRN ORAL Constipation 02/08/19 15:30 03/10/19 15:29 02/08/19 16:08 Methylprednisolone Sodium Succinate (Solu-MEDROL) 40 mg EVERY 12 HOURS IVP 02/10/19 21:00 03/12/19 20:59 02/12/19 09:40 Metoprolol Tartrate (Lopressor) 100 mg Q12HR ORAL 02/07/19 21:00 03/08/19 20:59 02/12/19 09:37 Miscellaneous Medication (Insulin Rate Change) 1 ea PRN PRN MISC Per rx protocol 02/11/19 17:15 03/13/19 17:14 02/12/19 15:08 Morphine Sulfate (Morphine Sulfate) 2 mg Q2H PRN IVP Moderate Pain (Pain Scale 4-6) 02/07/19 16:15 02/14/19 16:14 02/11/19 13:36 Morphine Sulfate (Morphine Sulfate) 4 mg Q2H PRN IVP Severe Pain (Pain Scale 7-10) 02/07/19 16:15 02/14/19 16:14 02/12/19 12:13 Nitroglycerin (Ntg) 0.4 mg Q5M PRN SL Prn Chest Pain 02/07/19 11:00 03/08/19 17:29 02/08/19 07:42 Ondansetron HCl (Zofran) 4 mg Q6H PRN IVP Nausea & Vomiting 02/07/19 11:15 03/08/19 11:14 02/09/19 00:58 Patient Own Medication (Patient's Own Med) 1 ea BID ORAL 02/07/19 18:00 03/09/19 17:59 02/12/19 09:40 Patient Own Medication (Patient's Own Med) 1 ea QOD ORAL 02/13/19 09:00 03/15/19 08:59 Patient Own Medication (Patient's Own Med) 2 ea DAILY ORAL 02/08/19 09:00 03/10/19 08:59 02/12/19 09:40 Piperacillin Sod/ Tazobactam Sod 3.375 gm/Sodium Chloride 110 ml @ 27.5 mls/hr Q12HR@0600,1800 IVPB 02/11/19 18:00 02/18/19 17:59 02/12/19 06:08 Polyethylene Glycol (Miralax) 17 gm BEDTIME ORAL 02/08/19 21:00 03/10/19 20:59 02/11/19 20:36 Propofol 100 ml @ 0 mls/hr Q24H IV 02/11/19 08:30 02/13/19 08:29 02/12/19 14:21 Sodium Chloride 1,000 ml @ 100 mls/hr Q10H IVLG 02/07/19 11:00 03/08/19 18:17 02/12/19 11:11 Trimethoprim/ Sulfamethoxazole 25 ml/Dextrose 575 ml @ 383.333 mls/hr Q12HR@0000,1200 IV 02/11/19 12:00 02/18/19 11:59 02/12/19 12:07 Vancomycin HCl (Vanco rx to dose) 1 ea DAILY PRN MISC . 02/10/19 19:45 03/12/19 19:44 Last 24 Hour Vital Signs Date Time Temp Pulse Resp B/P (MAP) Pulse Ox O2 Delivery O2 Flow Rate FiO2 02/12/19 15:15 68 28 97 Mechanical Ventilator 35 02/12/19 14:21 24 152/66 Mechanical Ventilator 50.0 35 02/12/19 14:00 67 23 152/68 (96) 94 02/12/19 14:00 24 152/68 Mechanical Ventilator 35 02/12/19 13:30 68 24 152/69 (96) 94 02/12/19 13:00 78 24 35 02/12/19 13:00 24 157/75 Mechanical Ventilator 35 02/12/19 13:00 72 25 157/75 (102) 94 02/12/19 12:43 98.0 02/12/19 12:30 75 23 159/71 (100) 95 02/12/19 12:07 24 159/71 Mechanical Ventilator 35 02/12/19 12:00 35 02/12/19 12:00 98.6 76 23 152/66 (94) 94 02/12/19 12:00 79 02/12/19 11:45 77 23 166/74 (104) 94 02/12/19 11:38 30 136/62 Mechanical Ventilator 50.0 35 02/12/19 11:30 90 24 215/97 (136) 96 02/12/19 11:15 90 22 100 Mechanical Ventilator 35 02/12/19 11:00 89 26 175/85 (115) 98 02/12/19 11:00 24 168/75 Mechanical Ventilator 35 02/12/19 11:00 88 22 95 Mechanical Ventilator 35 02/12/19 11:00 76 24 35 02/12/19 10:30 85 25 168/76 (106) 98 02/12/19 10:00 81 23 168/75 (106) 100 02/12/19 10:00 24 146/69 Mechanical Ventilator 35.0 02/12/19 09:38 136/62 02/12/19 09:38 136/62 02/12/19 09:37 94 136/62 02/12/19 09:30 80 22 151/69 (96) 98 02/12/19 09:16 94 30 35 02/12/19 09:00 24 156/69 Mechanical Ventilator 35 02/12/19 09:00 77 24 146/69 (94) 98 02/12/19 08:30 77 24 160/67 (98) 97 02/12/19 08:07 30 136/62 Mechanical Ventilator 50.0 35 02/12/19 08:00 97.9 78 25 156/69 (98) 98 02/12/19 08:00 45 02/12/19 08:00 74 02/12/19 07:30 84 22 151/68 (95) 99 02/12/19 07:15 86 30 100 Mechanical Ventilator 35 02/12/19 07:00 75 24 149/65 (93) 95 02/12/19 07:00 24 136/62 Mechanical Ventilator 35 02/12/19 07:00 84 28 35 02/12/19 07:00 84 24 96 Mechanical Ventilator 35 02/12/19 06:30 80 24 142/62 (88) 98 02/12/19 06:08 24 152/82 Mechanical Ventilator 02/12/19 06:00 79 24 136/62 (86) 98 02/12/19 05:30 78 24 152/70 (97) 98 02/12/19 05:24 77 24 35 02/12/19 05:00 78 23 155/78 (103) 100 02/12/19 05:00 24 155/78 Mechanical Ventilator 02/12/19 04:30 80 23 149/74 (99) 100 02/12/19 04:00 98.0 80 24 131/92 (105) 100 02/12/19 04:00 45 02/12/19 04:00 76 02/12/19 04:00 25 151/75 Mechanical Ventilator 02/12/19 03:30 76 24 141/83 (102) 100 02/12/19 03:16 76 24 100 Mechanical Ventilator 50 02/12/19 03:06 70 24 40 02/12/19 03:06 70 24 98 Mechanical Ventilator 45 02/12/19 03:00 73 24 132/62 (85) 100 02/12/19 03:00 25 141/83 Mechanical Ventilator 45 02/12/19 02:30 75 24 158/73 (101) 100 02/12/19 02:00 24 155/65 Mechanical Ventilator 45 02/12/19 02:00 75 24 158/73 (101) 100 02/12/19 01:40 24 144/66 45 02/12/19 01:30 79 24 144/66 (92) 100 02/12/19 01:23 76 24 45 02/12/19 01:00 24 146/62 Mechanical Ventilator 50 02/12/19 01:00 75 24 143/67 (92) 100 02/12/19 00:30 73 24 146/62 (90) 100 02/12/19 00:00 97.8 72 24 145/63 (90) 100 02/12/19 00:00 24 146/62 Mechanical Ventilator 50 02/11/19 23:45 24 146/72 Mechanical Ventilator 02/11/19 23:39 74 24 100 Mechanical Ventilator 50 02/11/19 23:30 73 24 147/67 (93) 100 02/11/19 23:30 24 152/59 Mechanical Ventilator 50 02/11/19 23:29 78 25 100 Mechanical Ventilator 50 02/11/19 23:15 24 147/60 Mechanical Ventilator 02/11/19 23:14 78 25 50 02/11/19 23:00 76 24 152/71 (98) 100 02/11/19 23:00 24 150/80 Mechanical Ventilator 02/11/19 22:30 85 23 167/83 (111) 100 02/11/19 22:00 88 23 147/62 (90) 100 02/11/19 22:00 24 147/64 Mechanical Ventilator 50 02/11/19 21:30 74 24 147/64 (91) 99 02/11/19 21:00 75 24 153/64 (93) 99 19 21:00 24 153/64 Mechanical Ventilator 50.0 02/11/19 20:42 75 24 50 02/11/19 20:36 74 144/63 02/11/19 20:30 74 24 144/63 (90) 98 02/11/19 20:00 50 02/11/19 20:00 75 02/11/19 20:00 24 148/69 Mechanical Ventilator 50 02/11/19 20:00 98.4 75 24 148/69 (95) 98 6/23/19 19:24 76 26 99 Mechanical Ventilator 50 02/11/19 19:12 73 24 98 Mechanical Ventilator 50 02/11/19 19:12 74 24 50 02/11/19 19:00 24 158/68 Mechanical Ventilator 50 02/11/19 19:00 86 26 151/76 (101) 98 02/11/19 18:54 24 149/73 Mechanical Ventilator 02/11/19 18:30 74 24 149/73 (98) 98 02/11/19 18:20 24 155/77 Mechanical Ventilator 50 02/11/19 18:00 76 24 155/77 (103) 98 02/11/19 17:39 24 141/72 Mechanical Ventilator 02/11/19 17:30 74 24 141/72 (95) 96 02/11/19 17:00 76 24 140/72 (94) 95 02/11/19 17:00 24 140/72 Mechanical Ventilator 02/11/19 16:46 89 26 99 Mechanical Ventilator 50 02/11/19 16:36 82 26 97 Mechanical Ventilator 50 02/11/19 16:30 24 157/75 Mechanical Ventilator 02/11/19 16:30 79 24 157/75 (102) 96 02/11/19 16:30 82 26 50 02/11/19 16:27 82 26 97 Mechanical Ventilator 50 02/11/19 16:00 98.8 88 24 190/96 (127) 98 02/11/19 16:00 50 02/11/19 16:00 24 190/96 Mechanical Ventilator 02/11/19 16:00 89 02/11/19 15:30 92 24 140/72 (94) 96 02/11/19 15:30 24 140/72 Mechanical Ventilator 50 02/11/19 15:00 24 151/76 Mechanical Ventilator 50 02/11/19 15:00 86 26 151/76 (101) 98 02/11/19 14:59 86 24 50 02/11/19 14:30 26 150/76 Mechanical Ventilator 02/11/19 14:30 99 26 150/76 (100) 98 02/11/19 14:18 25 132/84 Mechanical Ventilator 50 02/11/19 14:00 92 25 132/84 (100) 98 02/11/19 13:41 25 141/71 Mechanical Ventilator 50 02/11/19 13:30 94 25 141/71 (94) 98 02/11/19 13:00 24 132/71 Mechanical Ventilator 50 02/11/19 13:00 85 24 132/71 (91) 98 02/11/19 12:36 84 24 50 02/11/19 12:30 24 118/65 Mechanical Ventilator 50 02/11/19 12:30 80 24 118/65 (82) 98 02/11/19 12:00 98.8 78 24 121/62 (81) 97 02/11/19 12:00 50 02/11/19 12:00 24 121/62 Mechanical Ventilator 50 02/11/19 12:00 78 02/11/19 11:30 24 121/64 Mechanical Ventilator 50 02/11/19 11:30 78 24 121/64 (83) 98 02/11/19 11:07 84 30 98 Mechanical Ventilator 50 02/11/19 11:00 78 24 125/63 (83) 98 02/11/19 11:00 24 125/63 Mechanical Ventilator 50 02/11/19 10:57 81 30 96 Mechanical Ventilator 50 02/11/19 10:50 81 30 50 02/11/19 10:30 84 30 131/66 (87) 98 02/11/19 10:30 30 131/66 Mechanical Ventilator 50 02/11/19 10:00 30 125/66 Mechanical Ventilator 50 02/11/19 10:00 88 30 125/66 (85) 99 02/11/19 09:52 148/72 02/11/19 09:51 91 148/72 02/11/19 09:51 148/72 02/11/19 09:30 30 148/72 Mechanical Ventilator 50 02/11/19 09:30 91 30 147/72 (97) 99 02/11/19 09:00 89 29 127/64 (85) 97 02/11/19 09:00 29 127/64 Mechanical Ventilator 50 02/11/19 08:42 84 30 50 02/11/19 08:30 30 125/66 Mechanical Ventilator 02/11/19 08:30 84 30 126/60 (82) 96 02/11/19 08:00 84 30 129/61 (83) 96 02/11/19 08:00 50 02/11/19 08:00 30 129/61 Mechanical Ventilator 50 02/11/19 08:00 84 6/23/19 07:30 30 133/61 Mechanical Ventilator 50 02/11/19 07:30 85 30 132/59 (83) 96 02/11/19 07:06 84 30 100 Mechanical Ventilator 50 02/11/19 07:00 80 30 132/58 (82) 96 02/11/19 07:00 30 132/58 Endotracheal Tube 50 02/11/19 06:56 81 30 94 Mechanical Ventilator 50 02/11/19 06:32 81 30 50 02/11/19 06:00 30 130/59 Endotracheal Tube 50 02/11/19 06:00 80 30 130/59 (82) 94 02/11/19 05:07 30 130/62 Endotracheal Tube 100.0 50 02/11/19 05:06 30 130/62 Endotracheal Tube 50 02/11/19 05:00 80 30 130/62 (84) 94 02/11/19 05:00 25 152/80 Mechanical Ventilator 02/11/19 04:43 80 30 50 02/11/19 04:00 80 02/11/19 04:00 30 123/55 Endotracheal Tube 50 02/11/19 04:00 98.8 81 30 128/64 (85) 94 02/11/19 04:00 50 02/11/19 03:53 80 30 100 Mechanical Ventilator 50 02/11/19 03:43 77 30 50 02/11/19 03:43 77 30 94 Mechanical Ventilator 50 02/11/19 03:00 30 121/60 Endotracheal Tube 60 02/11/19 03:00 77 30 121/60 (80) 95 02/11/19 02:00 77 30 123/61 (81) 95 02/11/19 02:00 30 123/61 Endotracheal Tube 60 02/11/19 01:02 80 30 60 02/11/19 01:00 78 30 121/62 (81) 100 02/11/19 01:00 30 128/66 Endotracheal Tube 75 02/11/19 00:57 30 111/58 Endotracheal Tube 100.0 75 02/11/19 00:00 83 02/11/19 00:00 75 02/11/19 00:00 30 111/58 Endotracheal Tube 75 02/11/19 00:00 98.8 81 30 111/58 (75) 100 02/10/19 23:00 78 30 105/64 (78) 100 02/10/19 23:00 30 105/64 Endotracheal Tube 75 02/10/19 22:55 75 30 99 Mechanical Ventilator 75 02/10/19 22:43 75 30 75 02/10/19 22:42 75 30 99 Mechanical Ventilator 75 02/10/19 22:00 83 30 113/58 (76) 100 02/10/19 22:00 30 107/63 Endotracheal Tube 90 02/10/19 21:30 83 31 90 02/10/19 21:30 83 30 124/60 (81) 100 02/10/19 21:00 30 127/60 Endotracheal Tube 90 02/10/19 21:00 83 30 127/60 (82) 100 02/10/19 20:45 80 126/60 02/10/19 20:41 30 126/60 Endotracheal Tube 100.0 90 02/10/19 20:40 30 125/61 Endotracheal Tube 90 02/10/19 20:30 82 30 125/61 (82) 100 02/10/19 20:00 79 02/10/19 20:00 90 02/10/19 20:00 98.2 82 30 126/60 (82) 100 02/10/19 20:00 30 126/60 Endotracheal Tube 90 02/10/19 19:53 80 30 100 Mechanical Ventilator 90 02/10/19 19:47 80 30 100 Mechanical Ventilator 90 02/10/19 19:44 80 30 90 02/10/19 19:30 80 30 117/59 (78) 100 02/10/19 19:00 30 115/62 Endotracheal Tube 90 02/10/19 19:00 82 30 115/62 (79) 100 02/10/19 18:30 83 30 114/59 (77) 100 02/10/19 18:00 85 30 115/58 (77) 100 02/10/19 18:00 30 115/58 Mechanical Ventilator 90 02/10/19 17:30 85 30 106/62 (77) 100 02/10/19 17:07 84 30 90 02/10/19 17:00 84 30 114/59 (77) 100 02/10/19 17:00 30 114/59 Mechanical Ventilator 90 02/10/19 16:30 85 30 105/61 (76) 100 02/10/19 16:25 30 109/60 Mechanical Ventilator 90 02/10/19 16:00 98.7 86 30 104/64 (77) 100 02/10/19 16:00 84 02/10/19 16:00 Mechanical Ventilator Mechanical Ventilator 02/10/19 16:00 30 104/64 Mechanical Ventilator 90 02/10/19 16:00 90 02/10/19 15:41 89 30 97 Mechanical Ventilator 100 02/10/19 15:39 83 30 100 Mechanical Ventilator 100 02/10/19 15:38 84 30 90 02/10/19 15:30 84 30 105/61 (76) 100 Intake and Output 02/11/19 02/12/19 19:00 07:00 Intake Total 2571.166 ml 2508.198 ml Output Total 0 ml Balance 2571.166 ml 2508.198 ml Free Water 90 ml IV Total 2186.166 ml 1963.198 ml Tube Feeding 385 ml 455 ml Stool Total 0 ml # Voids 410 660 Labs Test 02/10/19 04:49 02/10/19 08:00 02/10/19 08:40 02/10/19 13:00 White Blood Count 6.1 K/UL (4.8-10.8) Red Blood Count 2.75 M/UL (4.70-6.10) Hemoglobin 7.6 G/DL (14.2-18.0) Hematocrit 23.5 % (42.0-52.0) Mean Corpuscular Volume 85 FL (80-99) Mean Corpuscular Hemoglobin 27.8 PG (27.0-31.0) Mean Corpuscular Hemoglobin Concent 32.5 G/DL (32.0-36.0) Red Cell Distribution Width 17.9 % (11.6-14.8) Platelet Count 147 K/UL (150-450) Mean Platelet Volume 5.3 FL (6.5-10.1) Neutrophils (%) (Auto) % (45.0-75.0) Lymphocytes (%) (Auto) % (20.0-45.0) Monocytes (%) (Auto) % (1.0-10.0) Eosinophils (%) (Auto) % (0.0-3.0) Basophils (%) (Auto) % (0.0-2.0) Differential Total Cells Counted 100 Neutrophils % (Manual) 70 % (45-75) Lymphocytes % (Manual) 21 % (20-45) Monocytes % (Manual) 9 % (1-10) Eosinophils % (Manual) 0 % (0-3) Basophils % (Manual) 0 % (0-2) Band Neutrophils 0 % (0-8) Platelet Estimate Adequate Platelet Morphology Normal Anisocytosis 1+ Sodium Level 141 MMOL/L (136-145) Potassium Level 4.0 MMOL/L (3.5-5.1) Chloride Level 107 MMOL/L (98-107) Carbon Dioxide Level 23 MMOL/L (21-32) Anion Gap 11 mmol/L (5-15) Blood Urea Nitrogen 30 mg/dL (7-18) Creatinine 1.9 MG/DL (0.55-1.30) Estimat Glomerular Filtration Rate 36.5 mL/min (>60) Glucose Level 156 MG/DL (74-106) Calcium Level 7.6 MG/DL (8.5-10.1) Total Bilirubin 0.6 MG/DL (0.2-1.0) Aspartate Amino Transf (AST/SGOT) 49 U/L (15-37) Alanine Aminotransferase (ALT/SGPT) 44 U/L (12-78) Alkaline Phosphatase 101 U/L (46-116) Troponin I 7.179 ng/mL (0.000-0.056) Total Protein 5.6 G/DL (6.4-8.2) Albumin 1.8 G/DL (3.4-5.0) Globulin 3.8 g/dL Albumin/Globulin Ratio 0.5 (1.0-2.7) Vancomycin Level Trough 14.0 ug/mL (5.0-12.0) Arterial Blood pH 7.106 (7.350-7.450) 7.367 (7.350-7.450) Arterial Blood Partial Pressure CO2 59.3 mmHg (35.0-45.0) 25.9 mmHg (35.0-45.0) Arterial Blood Partial Pressure O2 50.0 mmHg (75.0-100.0) 253.3 mmHg (75.0-100.0) Arterial Blood HCO3 18.2 mmol/L (22.0-26.0) 14.5 mmol/L (22.0-26.0) Arterial Blood Oxygen Saturation 70.7 % (95-100) 99.1 % (95-100) Arterial Blood Base Excess -11.3 (-2-2) -9.6 (-2-2) Benny Test Positive Positive Test 6/22/19 13:18 02/10/19 17:40 02/11/19 06:10 02/11/19 08:57 Erythrocyte Sedimentation Rate 130 MM/HR (0-20) C-Reactive Protein, Quantitative 27.8 mg/dL (0.00-0.90) Arterial Blood pH 7.418 (7.350-7.450) 7.422 (7.350-7.450) Arterial Blood Partial Pressure CO2 26.9 mmHg (35.0-45.0) 24.0 mmHg (35.0-45.0) Arterial Blood Partial Pressure O2 229.9 mmHg (75.0-100.0) 76.3 mmHg (75.0-100.0) Arterial Blood HCO3 17.0 mmol/L (22.0-26.0) 15.3 mmol/L (22.0-26.0) Arterial Blood Oxygen Saturation 99.0 % (95-100) 94.4 % (95-100) Arterial Blood Base Excess -6.5 (-2-2) -7.9 (-2-2) Benny Test Positive Positive White Blood Count 5.8 K/UL (4.8-10.8) Red Blood Count 2.96 M/UL (4.70-6.10) Hemoglobin 8.2 G/DL (14.2-18.0) Hematocrit 25.0 % (42.0-52.0) Mean Corpuscular Volume 85 FL (80-99) Mean Corpuscular Hemoglobin 27.6 PG (27.0-31.0) Mean Corpuscular Hemoglobin Concent 32.6 G/DL (32.0-36.0) Red Cell Distribution Width 17.8 % (11.6-14.8) Platelet Count 153 K/UL (150-450) Mean Platelet Volume 5.7 FL (6.5-10.1) Neutrophils (%) (Auto) % (45.0-75.0) Lymphocytes (%) (Auto) % (20.0-45.0) Monocytes (%) (Auto) % (1.0-10.0) Eosinophils (%) (Auto) % (0.0-3.0) Basophils (%) (Auto) % (0.0-2.0) Differential Total Cells Counted 100 Neutrophils % (Manual) 90 % (45-75) Lymphocytes % (Manual) 7 % (20-45) Monocytes % (Manual) 3 % (1-10) Eosinophils % (Manual) 0 % (0-3) Basophils % (Manual) 0 % (0-2) Band Neutrophils 0 % (0-8) Platelet Estimate Adequate Platelet Morphology Normal Anisocytosis 1+ Reticulocyte Count 0.2 % (0.5-2.0) Prothrombin Time 10.5 SEC (9.30-11.50) Prothromb Time International Ratio 1.0 (0.9-1.1) Sodium Level 140 MMOL/L (136-145) Potassium Level 4.1 MMOL/L (3.5-5.1) Chloride Level 106 MMOL/L (98-107) Carbon Dioxide Level 18 MMOL/L (21-32) Anion Gap 17 mmol/L (5-15) Blood Urea Nitrogen 45 mg/dL (7-18) Creatinine 3.3 MG/DL (0.55-1.30) Estimat Glomerular Filtration Rate 19.3 mL/min (>60) Glucose Level 370 MG/DL (74-106) Hemoglobin A1c 7.8 % (4.3-6.0) Calcium Level 7.9 MG/DL (8.5-10.1) Iron Level 6 ug/dL (50-175) Total Iron Binding Capacity 126 ug/dL (250-450) Percent Iron Saturation 5 % (15-50) Unsaturated Iron Binding 120 ug/dL (112-346) Ferritin 182 NG/ML (8-388) Total Bilirubin 0.7 MG/DL (0.2-1.0) Direct Bilirubin 0.4 MG/DL (0.0-0.3) Lactate Dehydrogenase 311 U/L (81-234) Troponin I 7.745 ng/mL (0.000-0.056) Pro-B-Type Natriuretic Peptide 5767 pg/mL (0-125) Triglycerides Level 194 MG/DL (30-150) Vitamin B12 Level 1213 PG/ML (193-986) Thyroid Stimulating Hormone (TSH) 0.487 uiU/mL (0.358-3.740) HIV (1&2) Antibody Rapid Preliminary positive Test 02/11/19 10:05 02/12/19 03:45 Vancomycin Level Trough 22.8 ug/mL (5.0-12.0) White Blood Count 6.2 K/UL (4.8-10.8) Red Blood Count 2.94 M/UL (4.70-6.10) Hemoglobin 8.2 G/DL (14.2-18.0) Hematocrit 24.7 % (42.0-52.0) Mean Corpuscular Volume 84 FL (80-99) Mean Corpuscular Hemoglobin 27.8 PG (27.0-31.0) Mean Corpuscular Hemoglobin Concent 33.2 G/DL (32.0-36.0) Red Cell Distribution Width 17.5 % (11.6-14.8) Platelet Count 179 K/UL (150-450) Mean Platelet Volume 6.5 FL (6.5-10.1) Neutrophils (%) (Auto) % (45.0-75.0) Lymphocytes (%) (Auto) % (20.0-45.0) Monocytes (%) (Auto) % (1.0-10.0) Eosinophils (%) (Auto) % (0.0-3.0) Basophils (%) (Auto) % (0.0-2.0) Sodium Level 139 MMOL/L (136-145) Potassium Level 4.0 MMOL/L (3.5-5.1) Chloride Level 108 MMOL/L (98-107) Carbon Dioxide Level 18 MMOL/L (21-32) Anion Gap 14 mmol/L (5-15) Blood Urea Nitrogen 63 mg/dL (7-18) Creatinine 3.8 MG/DL (0.55-1.30) Estimat Glomerular Filtration Rate 16.4 mL/min (>60) Glucose Level 210 MG/DL (74-106) Hemoglobin A1c 7.0 % (4.3-6.0) Uric Acid 7.8 MG/DL (2.6-7.2) Calcium Level 7.6 MG/DL (8.5-10.1) Phosphorus Level 3.9 MG/DL (2.5-4.9) Magnesium Level 2.9 MG/DL (1.8-2.4) Total Bilirubin 0.3 MG/DL (0.2-1.0) Direct Bilirubin 0.2 MG/DL (0.0-0.3) Aspartate Amino Transf (AST/SGOT) 63 U/L (15-37) Alanine Aminotransferase (ALT/SGPT) 77 U/L (12-78) Alkaline Phosphatase 264 U/L (46-116) Total Protein 5.0 G/DL (6.4-8.2) Albumin 1.8 G/DL (3.4-5.0) Folate 28.4 NG/ML (8.6-58.9) Random Vancomycin Level 18.6 ug/mL Height (Feet): 6 Height (Inches): 0.00 Weight (Pounds): 211 Objective Objective PHYSICAL EXAMINATION: GENERAL: NAD VITAL SIGNS: Have been reviewed. HEAD AND NECK: Shows no JVD. NG+ TRACH+ LUNGS: Coarse rhonchi. CARDIOVASCULAR: Shows regular S1 and S2 with no gallop or murmur. ABDOMEN: Soft. EXTREMITIES: No pitting edema. Daniela Guerrero NP Feb 12, 2019 15:34
--- NOTE | 2019-02-12 15:38 | Consultation ---
Consult Note Consult Note asked to eval for worsenning renal failure admitted 6 days ago homeless now intubated on Ventilator in ICU Cr 1.5 dana to 3.8 examined discussed with traction power engineer/Plan Acute Renal failure- Acute respiratory failure- Require intubation and Mechanical Ventilation Anemia Elevated troponin / IN HTN DM HIV Antibody + UA and urine studies Avoid Nephrotoxics as possible Monitor renal parameters keep BP and BS in check Per orders may require HD Kidney RADHA pending Mike Mcdonald MD Feb 12, 2019 15:38
--- NOTE | 2019-02-12 16:00 | NUR ---
NURSE NOTES: Blood glucose was checked, resulted 185, per order/algorithm protocol, insulin drip rate is maintained at 8.5 units/hour. Propofol drip maintained at 50mcg/kg/hour RASS Score -2 light sedation.
--- NOTE | 2019-02-12 16:30 | NUR ---
NURSE NOTES: Pt was cleaned, gown/linens changed. Oral care done, pt suctioned. Simon continues to drain mildly cloudy/yellow urine/with sediments at 40-50ml/hourly. No BM during my shift yet. Pt is on Docusate, being administered BID as ordered. OB stool has not been collected yet due to no stool output.
[2019-02-12 16:31] LABS: APPEARANCE,URINE SLIGHTLY CLOUDY; BILIRUBIN, URINE NEGATIVE (NEGATIVE); COLOR,URINE PALE YELLOW; GLUCOSE, URINE (UA) NEGATIVE (NEGATIVE); KETONES,URINE NEGATIVE (NEGATIVE); LEUKOCYTE ESTERASE ,URINE NEGATIVE (NEGATIVE); NITRITE,URINE NEGATIVE (NEGATIVE); PH,URINE 5 (4.5-8.0); PROTEIN,URINE 2+ (NEGATIVE); UROBILINOGEN,URINE NORMAL MG/DL (0.0-1.0)
--- NOTE | 2019-02-12 17:00 | NUR ---
NURSE NOTES: Blood glucose was checked, resulted 188, per order/algorithm protocol, insulin drip rate is maintained at 8.5 units/hour. Propofol drip maintained at 50mcg/kg/hour RASS Score -2 light sedation.
[2019-02-12] MEDS: HydrALAZINE 25mg tab NG SCH (17:23)
[2019-02-12 17:29] LABS: ANION GAP 14 mmol/L (5-15); BLOOD UREA NITROGEN 64 mg/dL (7-18); CALCIUM 7.3 MG/DL (8.5-10.1); CARBON DIOXIDE 16 MMOL/L (21-32); CHLORIDE 110 MMOL/L (98-107); CREATININE 3.9 MG/DL (0.55-1.30); POTASSIUM 4.5 MMOL/L (3.5-5.1); SODIUM 140 MMOL/L (136-145)
--- NOTE | 2019-02-12 17:30 | NUR ---
NURSE NOTES: New propofol bottle is hanged and drip rate is maintained at 50mcg/5g/hr with RASS score of -2 light sedation.
--- NOTE | 2019-02-12 18:00 | NUR ---
NURSE NOTES: Blood glucose was checked, resulted 146, per order/algorithm protocol, insulin drip rate is increased to 5.5 units/hour. Propofol drip maintained at 50mcg/kg/hour RASS Score -2 light sedation.
--- NOTE | 2019-02-12 18:15 | Consultation ---
DATE OF CONSULTATION: 02/08/2019 INFECTIOUS DISEASE CONSULTATION CONSULTING PHYSICIAN: Russ Tony M.D. ATTENDING PHYSICIAN: Mj Lutz M.D. REFERRING PHYSICIAN: Mj Lutz M.D. REASON FOR CONSULTATION: Pneumonia. CHIEF COMPLAINT: The patient's chief complaint coming in to the hospital was pneumonia and shortness of breath. HISTORY OF PRESENT ILLNESS: This is a 58-year-old male, who comes in to [facility]. He has history of human immunodeficiency virus. He is on anti-retroviral therapy. His viral load is undetectable. The patient had a CD4 he told me was over 200. The patient came in to [facility] coughing and was short of breath. The patient eventually, there was concern for tuberculosis and also because of respiratory insufficiency and hypoxic, he was sent to the intensive care unit and isolation and on BiPAP. Infectious Disease consultation was requested for antibiotic management and further workup in this patient with what looks like pneumonia. The patient was initially started on Zosyn, vancomycin, and azithromycin for community-acquired pneumonia. Workup included serology and cultures are pending. MAR was noted. Orders were noted. Notes and records were reviewed. Case was discussed with RN. PAST MEDICAL HISTORY: The patient's past medical history includes the following. The patient has a past medical history of hypertension, chronic kidney disease, elevated creatinine, anemia, diabetes mellitus, CVA, TIA, and migraines. He has a history of human immunodeficiency virus. He told me that his T-cell count on admission was over 400 and viral load nondetectable on anti-retroviral therapy. MEDICATIONS: The patient was initially started on Zosyn, azithromycin, and vancomycin for antibiotics. Prior to admission, he was on aspirin, biotin, and acetaminophen. He was on Zyrtec, docusate, and duloxetine. He was on Intelence, Zetia, ferrous sulfate, folic acid, lamotrigine, isosorbide, cough syrup, and losartan. He was on Januvia, Isentress, Viread, vitamin B, and vitamin D. MAR was reviewed also. ALLERGIES: No known drug allergies. No antibiotic allergies. SOCIAL HISTORY: Negative for smoking, alcohol, or drug abuse. FAMILY HISTORY: Noncontributory. Negative for tuberculosis or cancer. REVIEW OF SYSTEMS: CONSTITUTIONAL: The patient is short of breath. He is responsive. He is not on pressors. He has no CVA tenderness. HEAD AND NECK: No head pain or neck pain. No neck stiffness or headache. No thrush, dysphagia, or sinus tenderness. CARDIAC: No chest pain or palpitation or pressors. GASTROINTESTINAL: No nausea, vomiting, or diarrhea. GENITOURINARY: No dysuria or frequency. PULMONARY: He has cough, congestion, shortness of breath, and sputum production. SKIN: No rash or itching. No pruritus. EXTREMITY: No extremity pain. NEUROLOGIC: No seizure activity. He has generalized fatigue and weakness. No weight loss or night sweats. PHYSICAL EXAM: VITAL SIGNS: On admission, temperature was 98.4, pulse rate is 116, respiratory rate 28, saturation 95%, and blood pressure 170/80. He was on BiPAP 40%. GENERAL: Alert and responsive. HEAD AND NECK: Oral exam, no thrush. Eye exam, no icterus. Neck is supple. No JVD. Normocephalic. LUNGS: Bilateral rhonchi, rales, and crackles. He is on BiPAP and short of breath. HEART: Regular. Possible gallop. No obvious friction rub. Tachycardic. ABDOMEN: Soft. Positive bowel sounds. Nontender. SKIN: No rash. MUSCULOSKELETAL: No effusion. Legs are without cellulitis. PERIPHERAL: No gangrene or cyanosis. GENITOURINARY: No CVA tenderness. LINE SITES: Without phlebitis. NEUROLOGIC: Generalized weakness and responsive. LABORATORY DATA: When I saw the patient, white count was 5.0 and hemoglobin 10.4 and then white count became 8.8 and hemoglobin 10.3. Platelet count is 220,000. The patient's creatinine is 1.5. LFTs noted. Cultures are pending. Chest x-ray shows the following. It showed bilateral infiltrates that are worsening, likely pneumonia in the right and left lung bases. It was noted and reviewed. Cultures pending. Serology was ordered. ASSESSMENT AND PLAN: 1. The patient has bilateral pneumonia, rule out community-acquired pneumonia. He has history of human immunodeficiency virus, but his T-cell count is over 400. We will continue Zosyn, vancomycin, and azithromycin for community-acquired pneumonia. Monitor creatinine closely. We will check sputum culture and other cultures. Check laboratories. Check serology for Legionella, mycoplasma, and fungal infections. We will continue Zosyn, azithromycin, and vancomycin for community-acquired pneumonia. Continue BiPAP and ICU care. The patient is also being placed on isolation to rule out tuberculosis. We will get AFBs. 2. The patient has history of human immunodeficiency virus. We will check CD4 and viral load. Continue anti-retroviral therapy. He has been on Isentress, Viread, and Intelence. Check CD4 and viral load. Monitor human immunodeficiency virus status and continue anti-retroviral therapy for now. 3. The patient has a history of hypertension. Blood pressure treatment per Primary. 4. Chronic kidney disease with elevated creatinine. Watch creatinine closely on antibiotics. 5. Anemia. 6. Diabetes mellitus. Diabetes treatment per primary. 7. CVA. 8. Transient ischemic attack. 9. Migraines. 10. No known drug allergies. 11. Social history is negative. 12. Family history is noncontributory. 13. MAR was noted. 14. Case was discussed with RN. 15. Continue treatment per primary consultants. Russ Tony M.D. DR: JAKOB JOB#: [id number] CC:
--- NOTE | 2019-02-12 18:30 | NUR ---
NURSE NOTES: Oral care done and pt suctioned. Pt repositioned with bilateral extremities elevated on pillows. VS stable.
--- NOTE | 2019-02-12 19:00 | NUR ---
NURSE NOTES: Blood glucose was checked, resulted 148, per order/algorithm protocol, insulin drip rate is maintained at 5.5 units/hour. Propofol drip maintained at 50mcg/kg/hour RASS Score -2 light sedation.
--- NOTE | 2019-02-12 19:30 | NUR ---
HAND-OFF: Report given to Yonis ZARATE. VS stable. Endorsed plan of care.
--- NOTE | 2019-02-12 20:00 | NUR ---
NURSE NOTES: Blood glucose was checked, resulted 172, per order/algorithm protocol, insulin drip rate is now at 7units/hour. Propofol drip maintained at 50mcg/kg/hour RASS Score -2 light sedation. Patient repositioned and given oral care.
[2019-02-12] MEDS: Atorvastatin 20mg tab ORAL SCH (20:03)
[2019-02-12] MEDS: Miralax 17gm pkt ORAL SCH (20:03)
[2019-02-12] MEDS: Enoxaparin 40mg Inj SUBQ SCH (20:03)
--- NOTE | 2019-02-12 20:15 | NUR ---
NURSE NOTES: At 1730 today, I switched the empty propofol bottle for a new bottle that was handed to me by the pharmacy associate while I was in the pt's room. I hang the new propofol bottle at 1730 however forgot to scan the bottle at the time when I hang it. I called the pharmacy and informed the pharmacist regarding this new bottle/admin. Then under eMAR, I manually entered an administration for 1730 schedule, and cosigned by Yonis ZARATE.
[2019-02-12] MEDS ORDERED: Tubing IV Secondary IV ONE (20:26)
--- NOTE | 2019-02-12 21:00 | NUR ---
NURSE NOTES: Blood glucose was checked, resulted 152, per order/algorithm protocol, insulin drip rate is now at 5.5units/hour. Propofol drip maintained at 50mcg/kg/hour RASS Score -2 light sedation. BP remains stable, HR 70 SR, 96% SpO2 while on 35% FiO2 and peep of 5.
--- NOTE | 2019-02-12 21:26 | General Progress Note ---
Assessment/Plan Status: stable Assessment/Plan: 58 y Male admitted to the hospital due to fever, shortness of breath and chest pain. # Multilobar pneumonia in patient with HIV- worse - Broad sp atbx. Will continue Zosyn, Vancomycin and Azithromycin - Bactrim added for PCP coverage - Droplet precaution -DCed - Oxygen support - ID consult appreciated. AFB, cocci, hystoplasma, legionella, ordered. . - Patient s/p emergent bronchoscopy given florid ARDS without clear etiology # Acute Hypoxemic respiratory failure # ARDS - improved - Cont mechanical ventilation, changed to pressure control - s/p emergent bronchoscopy - Due to pneumonia # NSTEMI - EKG with bifascicular block RBB and LAFB, no ST changes. - Trend troponin x3 - ECHO completed with no WMA and preserved EF. Dr. Francois consulted. Consideration for outpatient cath vs possibly myocarditis due to underlying viral infection. No evidence of Takotsubo per TTE. - NGT prn - Pain control with morphine # HIV - Continue HARRT - VL is undetectable per patient report. T cell count > 400 # HTN - Resume home medication # Bordeline hyponatremia - Monitor - good response to NS # CKD stage 2-3 - Trend renal function DVT and GI ppx Full code A total of 35 mins of critical care time was spent on this patient, dealing with hypoxemic resp failure requiring continuous mechanical ventilation, reviewing telemetry data, discussion with bedside [employer] Subjective Date patient seen: Feb 12, 2019 Time patient seen: 10:00 Allergies: Coded Allergies: No Known Allergies (Unverified , 02/05/13) Subjective No acute overnight event, O2 requirement decreased, will wean off PEEP, pt remains sedated and intubated in ICU Objective Last 24 Hour Vital Signs Date Time Temp Pulse Resp B/P (MAP) Pulse Ox O2 Delivery O2 Flow Rate FiO2 02/12/19 20:39 75 25 35 35 02/12/19 20:23 24 128/65 Mechanical Ventilator 50.0 35 02/12/19 20:01 68 128/65 02/12/19 19:30 68 24 128/65 (86) 98 02/12/19 19:14 68 24 98 Mechanical Ventilator 35 02/12/19 19:04 67 24 97 Mechanical Ventilator 35 02/12/19 19:03 67 24 35 35 02/12/19 19:00 66 24 133/70 (91) 98 02/12/19 19:00 24 133/70 Mechanical Ventilator 98 02/12/19 18:30 68 21 134/71 (92) 97 02/12/19 18:00 68 21 141/72 (95) 96 02/12/19 18:00 24 141/72 Mechanical Ventilator 35 02/12/19 17:52 97.9 02/12/19 17:30 67 23 139/70 (93) 95 02/12/19 17:30 24 128/65 Mechanical Ventilator 50.0 35 02/12/19 17:23 151/75 02/12/19 17:23 67 151/75 02/12/19 17:00 65 24 35 02/12/19 17:00 24 139/72 Mechanical Ventilator 35 02/12/19 17:00 67 21 149/67 (94) 95 02/12/19 16:30 66 24 154/65 (94) 94 02/12/19 16:00 97.9 67 24 151/75 (100) 99 02/12/19 16:00 24 149/67 Mechanical Ventilator 35 02/12/19 16:00 67 02/12/19 16:00 35 02/12/19 15:30 67 22 150/82 (104) 99 02/12/19 15:29 69 28 97 Mechanical Ventilator 35 02/12/19 15:28 69 28 35 02/12/19 15:15 68 28 97 Mechanical Ventilator 35 02/12/19 15:00 24 152/68 Mechanical Ventilator 35 02/12/19 15:00 66 22 149/67 (94) 95 02/12/19 14:30 67 24 154/65 (94) 95 02/12/19 14:21 24 152/66 Mechanical Ventilator 50.0 35 02/12/19 14:00 67 23 152/68 (96) 94 02/12/19 14:00 24 152/68 Mechanical Ventilator 35 02/12/19 13:30 68 24 152/69 (96) 94 02/12/19 13:00 78 24 35 02/12/19 13:00 24 157/75 Mechanical Ventilator 35 02/12/19 13:00 72 25 157/75 (102) 94 02/12/19 12:30 75 23 159/71 (100) 95 02/12/19 12:07 24 159/71 Mechanical Ventilator 35 02/12/19 12:00 35 02/12/19 12:00 98.6 76 23 152/66 (94) 94 02/12/19 12:00 79 02/12/19 11:45 77 23 166/74 (104) 94 02/12/19 11:38 30 136/62 Mechanical Ventilator 50.0 35 02/12/19 11:30 90 24 215/97 (136) 96 02/12/19 11:15 90 22 100 Mechanical Ventilator 35 02/12/19 11:00 89 26 175/85 (115) 98 02/12/19 11:00 24 168/75 Mechanical Ventilator 35 02/12/19 11:00 88 22 95 Mechanical Ventilator 35 02/12/19 11:00 76 24 35 02/12/19 10:30 85 25 168/76 (106) 98 02/12/19 10:00 81 23 168/75 (106) 100 02/12/19 10:00 24 146/69 Mechanical Ventilator 35.0 02/12/19 09:38 136/62 02/12/19 09:38 136/62 02/12/19 09:37 94 136/62 02/12/19 09:30 80 22 151/69 (96) 98 02/12/19 09:16 94 30 35 02/12/19 09:00 24 156/69 Mechanical Ventilator 35 02/12/19 09:00 77 24 146/69 (94) 98 02/12/19 08:30 77 24 160/67 (98) 97 02/12/19 08:07 30 136/62 Mechanical Ventilator 50.0 35 02/12/19 08:00 97.9 78 25 156/69 (98) 98 02/12/19 08:00 45 02/12/19 08:00 74 02/12/19 07:30 84 22 151/68 (95) 99 02/12/19 07:15 86 30 100 Mechanical Ventilator 35 02/12/19 07:00 75 24 149/65 (93) 95 02/12/19 07:00 24 136/62 Mechanical Ventilator 35 02/12/19 07:00 84 28 35 02/12/19 07:00 84 24 96 Mechanical Ventilator 35 02/12/19 06:30 80 24 142/62 (88) 98 02/12/19 06:08 24 152/82 Mechanical Ventilator 02/12/19 06:00 79 24 136/62 (86) 98 02/12/19 05:30 78 24 152/70 (97) 98 02/12/19 05:24 77 24 35 02/12/19 05:00 78 23 155/78 (103) 100 02/12/19 05:00 24 155/78 Mechanical Ventilator 02/12/19 04:30 80 23 149/74 (99) 100 02/12/19 04:00 98.0 80 24 131/92 (105) 100 02/12/19 04:00 45 02/12/19 04:00 76 02/12/19 04:00 25 151/75 Mechanical Ventilator 02/12/19 03:30 76 24 141/83 (102) 100 02/12/19 03:16 76 24 100 Mechanical Ventilator 50 02/12/19 03:06 70 24 40 02/12/19 03:06 70 24 98 Mechanical Ventilator 45 02/12/19 03:00 73 24 132/62 (85) 100 02/12/19 03:00 25 141/83 Mechanical Ventilator 45 02/12/19 02:30 75 24 158/73 (101) 100 02/12/19 02:00 24 155/65 Mechanical Ventilator 45 02/12/19 02:00 75 24 158/73 (101) 100 02/12/19 01:40 24 144/66 45 02/12/19 01:30 79 24 144/66 (92) 100 02/12/19 01:23 76 24 45 02/12/19 01:00 24 146/62 Mechanical Ventilator 50 02/12/19 01:00 75 24 143/67 (92) 100 02/12/19 00:30 73 24 146/62 (90) 100 02/12/19 00:00 97.8 72 24 145/63 (90) 100 02/12/19 00:00 24 146/62 Mechanical Ventilator 50 02/11/19 23:45 24 146/72 Mechanical Ventilator 02/11/19 23:39 74 24 100 Mechanical Ventilator 50 02/11/19 23:30 73 24 147/67 (93) 100 02/11/19 23:30 24 152/59 Mechanical Ventilator 50 02/11/19 23:29 78 25 100 Mechanical Ventilator 50 02/11/19 23:15 24 147/60 Mechanical Ventilator 02/11/19 23:14 78 25 50 02/11/19 23:00 76 24 152/71 (98) 100 02/11/19 23:00 24 150/80 Mechanical Ventilator 02/11/19 22:30 85 23 167/83 (111) 100 02/11/19 22:00 88 23 147/62 (90) 100 02/11/19 22:00 24 147/64 Mechanical Ventilator 50 02/11/19 21:30 74 24 147/64 (91) 99 Intake and Output 02/11/19 02/12/19 19:00 07:00 Intake Total 2571.166 ml 2508.198 ml Output Total 0 ml Balance 2571.166 ml 2508.198 ml Free Water 90 ml IV Total 2186.166 ml 1963.198 ml Tube Feeding 385 ml 455 ml Stool Total 0 ml # Voids 410 660 Laboratory Tests 02/12/19 03:45: White Blood Count 6.2, Red Blood Count 2.94L, Hemoglobin 8.2L, Hematocrit 24.7L , Mean Corpuscular Volume 84, Mean Corpuscular Hemoglobin 27.8, Mean Corpuscular Hemoglobin Concent 33.2, Red Cell Distribution Width 17.5H, Platelet Count 179, Mean Platelet Volume 6.5, Neutrophils (%) (Auto) , Lymphocytes (%) (Auto) , Monocytes (%) (Auto) , Eosinophils (%) (Auto) , Basophils (%) (Auto) , Sodium Level 139, Potassium Level 4.0, Chloride Level 108H, Carbon Dioxide Level 18L, Anion Gap 14, Blood Urea Nitrogen 63H, Creatinine 3.8H, Estimat Glomerular Filtration Rate 16.4, Glucose Level 210#H, Hemoglobin A1c 7.0H, Uric Acid 7.8H, Calcium Level 7.6L, Phosphorus Level 3.9, Magnesium Level 2.9H, Total Bilirubin 0.3, Direct Bilirubin 0.2, Aspartate Amino Transf (AST/SGOT) 63H, Alanine Aminotransferase (ALT/SGPT) 77, Alkaline Phosphatase 264H, Total Protein 5.0L, Albumin 1.8L, Folate 28.4, Random Vancomycin Level 18.6 02/12/19 16:15: Sodium Level 140, Potassium Level 4.5, Chloride Level 110H, Carbon Dioxide Level 16L, Anion Gap 14, Blood Urea Nitrogen 64H, Creatinine 3.9H, Estimat Glomerular Filtration Rate 15.9, Glucose Level 178H, Calcium Level 7.3L 02/12/19 16:20: Urine Color Pale yellow, Urine Appearance Slightly cloudy, Urine pH 5, Urine Specific [place] 1.015, Urine Protein 2+H, Urine Glucose (UA) Negative, Urine Ketones Negative, Urine Blood 2+H, Urine Nitrite Negative, Urine Bilirubin Negative, Urine Urobilinogen Normal, Urine Leukocyte Esterase Negative, Urine RBC 10-15H, Urine WBC 0-2, Urine Squamous Epithelial Cells Occasional, Urine Amorphous Sediment ModerateH, Urine Bacteria Few, Urine Random Sodium 44 Height (Feet): 6 Height (Inches): 0.00 Weight (Pounds): 211 Objective General Appearance: Intubated, sedated. WD/WN, no apparent distress EENT: intubated Neck: non-tender, normal alignment Cardiovascular: normal peripheral pulses, normal rate Respiratory/Chest: chest wall non-tender, lungs clear Abdomen: normal bowel sounds, non tender Extremities: normal range of motion, non-tender Edema: trace edema Neurologic: messenger copy II-XII grossly normal Sonja Douglas MD Feb 12, 2019 21:26
--- NOTE | 2019-02-12 22:00 | NUR ---
NURSE NOTES: Blood glucose was checked, resulted 159, per order/algorithm protocol, insulin drip rate is now at 5.5units/hour. Propofol drip maintained at 50mcg/kg/hour RASS Score -2 light sedation. Repositioned patient.
--- NOTE | 2019-02-12 23:00 | NUR ---
NURSE NOTES: Blood glucose was checked, resulted 168, per order/algorithm protocol, insulin drip rate is now at 7units/hour. Propofol drip maintained at 50mcg/kg/hour RASS Score -2 light sedation.
[2019-02-13] VITALS (38 sets, daily range): BP systolic 132–210; BP diastolic 61–112
--- NOTE | 2019-02-13 | NUR ---
NURSE NOTES: Blood glucose was checked, resulted 160, per order/algorithm protocol, insulin drip rate is maintained at 7units/hour. Propofol drip maintained at 50mcg/kg/hour RASS Score -2 light sedation. Patient repositioned and given oral care.
[2019-02-13] MEDS: HydrALAZINE 25mg tab NG SCH ×4 (00:41→14:01)
[2019-02-13] MEDS: D5W IV SCH ×3 (00:42→23:46)
[2019-02-13] MEDS: SULFAMETHOXAZOLE IV SCH ×3 (00:42→23:46)
[2019-02-13] MEDS: TRIMETHOPRIM IV SCH ×3 (00:42→23:46)
--- NOTE | 2019-02-13 01:00 | NUR ---
NURSE NOTES: Blood glucose was checked, resulted 172, per order/algorithm protocol, insulin drip rate is maintained at 7units/hour. Propofol drip maintained at 50mcg/kg/hour RASS Score -2 light sedation. New Insulin gtt bag hung.
--- NOTE | 2019-02-13 02:00 | NUR ---
NURSE NOTES: Blood glucose was checked, resulted 221, per order/algorithm protocol, insulin drip rate is now at 13units/hour. Propofol drip maintained at 50mcg/kg/hour RASS Score -2 light sedation. Patient repositioned and given oral care.
[2019-02-13] MEDS: Insulin Human Regular 100units/ml 3ml IV PRN ×2 (02:05→03:06)
--- NOTE | 2019-02-13 03:00 | NUR ---
NURSE NOTES: Blood glucose was checked, resulted 218, per order/algorithm protocol, insulin drip rate is maintained at 13units/hour. Propofol drip maintained at 50mcg/kg/hour RASS Score -2 light sedation. Patient repositioned and given oral care.
[2019-02-13] MEDS: Albuterol/Ipratropium 3ml neb HHN SCH ×6 (03:17→23:13)
[2019-02-13] MEDS: Insulin Rate Change 1 Each MISC PRN ×3 (03:58→20:18)
--- NOTE | 2019-02-13 04:00 | NUR ---
NURSE NOTES: Blood glucose was checked, resulted 191, per order/algorithm protocol, insulin drip rate is maintained at 8.5units/hour. Propofol drip maintained at 50mcg/kg/hour RASS Score -2 light sedation. Patient repositioned and given oral care.
--- NOTE | 2019-02-13 05:00 | NUR ---
NURSE NOTES: Blood glucose was checked, resulted 1989, per order/algorithm protocol, insulin drip rate is maintained at 8.5units/hour. Propofol drip maintained at 50mcg/kg/hour RASS Score -2 light sedation. Patient repositioned. Addendum: 02/13/19 at 0608 by PHU ADAMS RN Correctio: glucose resulted , not 1989.
[2019-02-13] MEDS: Zosyn 3.375gm q12h **Extended infusion IVPB SCH ×4 (05:37→18:05)
[2019-02-13] MEDS: Morphine Sulfate 4mg/ml Inj (IV USE ONLY) IVP PRN (05:37)
[2019-02-13 05:42] LABS: HEMATOCRIT 28.7 % (42.0-52.0); HEMOGLOBIN 9.4 G/DL (14.2-18.0); MEAN CORPUSCULAR VOLUME 86 FL (80-99); PLATELET COUNT 257 K/UL (150-450); RED BLOOD COUNT 3.35 M/UL (4.70-6.10); RED CELL DISTRIBUTION WIDTH 18.2 % (11.6-14.8); WHITE BLOOD COUNT 11.6 K/UL (4.8-10.8)
--- NOTE | 2019-02-13 06:00 | NUR ---
NURSE NOTES: Blood glucose was checked, resulted 181, per order/algorithm protocol, insulin drip rate is maintained at 8.5units/hour. Propofol drip maintained at 50mcg/kg/hour RASS Score -2 light sedation. Patient repositioned and given oral care.
[2019-02-13 06:06] LABS: ALANINE AMINOTRANSFERASE 74 U/L (12-78); ALBUMIN/GLOBULIN RATIO 0.4 (1.0-2.7); ALKALINE PHOSPHATASE 249 U/L (46-116); ANION GAP 16 mmol/L (5-15); ASPARTATE AMINO TRANSFERASE 49 U/L (15-37); BILIRUBIN,TOTAL 0.3 MG/DL (0.2-1.0); BLOOD UREA NITROGEN 70 mg/dL (7-18); CALCIUM 8.1 MG/DL (8.5-10.1); CARBON DIOXIDE 15 MMOL/L (21-32); CHLORIDE 111 MMOL/L (98-107); CREATINE KINASE 171 U/L (26-308); CREATININE 3.8 MG/DL (0.55-1.30); GAMMA GLUTAMYL TRANSPEPTIDASE 473 U/L (5-85); PHOSPHORUS 5.3 MG/DL (2.5-4.9); POTASSIUM 4.8 MMOL/L (3.5-5.1); SODIUM 142 MMOL/L (136-145); TRIGLYCERIDES 200 MG/DL (30-150)
--- NOTE | 2019-02-13 06:56 | General Progress Note ---
Assessment/Plan Problem List: (1) ISH (acute kidney injury) ICD Codes: N17.9 - Acute kidney failure, unspecified SNOMED: 19864905 (2) Uncontrolled type 2 diabetes mellitus with chronic kidney disease ICD Codes: E11.22 - Type 2 diabetes mellitus with diabetic chronic kidney disease; E11.65 - Type 2 diabetes mellitus with hyperglycemia SNOMED: 82041977, [id number], [id number] (3) HIV disease ICD Codes: B20 - Human immunodeficiency virus [HIV] disease SNOMED: 31321506 (4) Respiratory distress ICD Codes: R06.03 - Acute respiratory distress SNOMED: 792436693 Status: stable Assessment/Plan: still requiring high dose insulin gtt about 8-9 units / hour - will continue to manage hyperglycemia with insulin gtt Subjective ROS Limited/Unobtainable: Yes Allergies: Coded Allergies: No Known Allergies (Unverified , 02/05/13) Subjective events noted glucose values improved on insulin gtt Item Value Date Time Bedside Blood Glucose 181 mg/dl H 02/13/19 0600 Bedside Blood Glucose 221 mg/dl H 02/13/19 0205 Bedside Blood Glucose 159 mg/dl H 02/12/19 2200 Bedside Blood Glucose 146 mg/dl H 02/12/19 1800 Bedside Blood Glucose 224 mg/dl H 02/12/19 1417 Bedside Blood Glucose 200 mg/dl H 02/12/19 1016 Bedside Blood Glucose 209 mg/dl H 02/12/19 0641 Objective Last 24 Hour Vital Signs Date Time Temp Pulse Resp B/P (MAP) Pulse Ox O2 Delivery O2 Flow Rate FiO2 02/13/19 06:41 88 24 98 Mechanical Ventilator 35 02/13/19 06:39 78 27 35 02/13/19 06:35 78 24 96 Mechanical Ventilator 35 02/13/19 06:01 27 140/70 35 02/13/19 06:00 81 27 145/75 (98) 94 02/13/19 05:37 149/75 02/13/19 05:25 86 27 35 35 02/13/19 05:00 87 21 140/70 (93) 94 02/13/19 05:00 25 149/75 Mechanical Ventilator 35 02/13/19 04:00 Mechanical Ventilator Mechanical Ventilator Mechanical Ventilator 02/13/19 04:00 35 02/13/19 04:00 20 146/112 02/13/19 04:00 99.3 97 16 146/112 (123) 93 02/13/19 04:00 106 02/13/19 03:31 21 164/75 Mechanical Ventilator 35 02/13/19 03:27 78 24 98 Mechanical Ventilator 35 02/13/19 03:19 93 26 96 Mechanical Ventilator 35 02/13/19 03:18 93 26 35 35 02/13/19 03:00 24 181/101 Mechanical Ventilator 35 02/13/19 03:00 94 24 164/75 (104) 93 02/13/19 02:30 93 22 177/84 (115) 95 02/13/19 02:00 89 16 160/79 (106) 97 02/13/19 02:00 21 169/85 Mechanical Ventilator 35 02/13/19 01:30 84 24 157/75 (102) 95 02/13/19 01:01 88 28 35 35 02/13/19 01:00 79 22 148/74 (98) 96 02/13/19 01:00 24 157/73 Mechanical Ventilator 35 02/13/19 00:41 139/82 02/13/19 00:30 83 22 156/75 (102) 96 02/13/19 00:00 98.9 82 20 133/80 (97) 97 02/13/19 00:00 Mechanical Ventilator Mechanical Ventilator Mechanical Ventilator 02/13/19 00:00 35 02/13/19 00:00 24 139/82 Mechanical Ventilator 35 02/13/19 00:00 96 02/12/19 23:42 29 128/65 Mechanical Ventilator 50.0 35 02/12/19 23:41 22 129/77 Mechanical Ventilator 35 02/12/19 23:33 72 24 98 Mechanical Ventilator 35 02/12/19 23:30 75 20 145/80 (101) 99 02/12/19 23:22 79 29 96 Mechanical Ventilator 35 02/12/19 23:22 74 29 35 35 02/12/19 23:00 24 128/65 35 02/12/19 23:00 73 22 137/72 (93) 96 02/12/19 22:30 72 22 141/77 (98) 96 02/12/19 22:00 72 21 132/75 (94) 96 02/12/19 22:00 22 141/77 Mechanical Ventilator 35 02/12/19 21:30 70 20 136/70 (92) 96 02/12/19 21:00 20 148/74 Mechanical Ventilator 35 02/12/19 21:00 72 20 148/74 (98) 97 02/12/19 20:39 75 25 35 35 02/12/19 20:30 75 22 137/77 (97) 98 02/12/19 20:23 24 128/65 Mechanical Ventilator 50.0 35 02/12/19 20:22 23 134/72 Mechanical Ventilator 35 02/12/19 20:01 68 128/65 02/12/19 20:00 97.9 70 23 134/72 (92) 96 02/12/19 20:00 23 134/72 Mechanical Ventilator 35 02/12/19 20:00 35 02/12/19 20:00 73 02/12/19 20:00 Mechanical Ventilator Mechanical Ventilator Mechanical Ventilator 02/12/19 19:30 68 24 128/65 (86) 98 02/12/19 19:14 68 24 98 Mechanical Ventilator 35 02/12/19 19:04 67 24 97 Mechanical Ventilator 35 02/12/19 19:03 67 24 35 35 02/12/19 19:00 66 24 133/70 (91) 98 02/12/19 19:00 24 133/70 Mechanical Ventilator 98 02/12/19 18:30 68 21 134/71 (92) 97 02/12/19 18:00 68 21 141/72 (95) 96 02/12/19 18:00 24 141/72 Mechanical Ventilator 35 02/12/19 17:52 97.9 02/12/19 17:30 67 23 139/70 (93) 95 02/12/19 17:30 24 128/65 Mechanical Ventilator 50.0 35 02/12/19 17:23 151/75 02/12/19 17:23 67 151/75 02/12/19 17:00 65 24 35 02/12/19 17:00 24 139/72 Mechanical Ventilator 35 02/12/19 17:00 67 21 149/67 (94) 95 02/12/19 16:30 66 24 154/65 (94) 94 02/12/19 16:00 97.9 67 24 151/75 (100) 99 02/12/19 16:00 24 149/67 Mechanical Ventilator 35 02/12/19 16:00 67 02/12/19 16:00 35 6/24/19 15:30 67 22 150/82 (104) 99 02/12/19 15:29 69 28 97 Mechanical Ventilator 35 02/12/19 15:28 69 28 35 02/12/19 15:15 68 28 97 Mechanical Ventilator 35 02/12/19 15:00 24 152/68 Mechanical Ventilator 35 02/12/19 15:00 66 22 149/67 (94) 95 02/12/19 14:30 67 24 154/65 (94) 95 02/12/19 14:21 24 152/66 Mechanical Ventilator 50.0 35 02/12/19 14:00 67 23 152/68 (96) 94 02/12/19 14:00 24 152/68 Mechanical Ventilator 35 02/12/19 13:30 68 24 152/69 (96) 94 02/12/19 13:00 78 24 35 02/12/19 13:00 24 157/75 Mechanical Ventilator 35 02/12/19 13:00 72 25 157/75 (102) 94 02/12/19 12:30 75 23 159/71 (100) 95 02/12/19 12:07 24 159/71 Mechanical Ventilator 35 02/12/19 12:00 35 02/12/19 12:00 98.6 76 23 152/66 (94) 94 02/12/19 12:00 79 02/12/19 11:45 77 23 166/74 (104) 94 02/12/19 11:38 30 136/62 Mechanical Ventilator 50.0 35 02/12/19 11:30 90 24 215/97 (136) 96 02/12/19 11:15 90 22 100 Mechanical Ventilator 35 02/12/19 11:00 89 26 175/85 (115) 98 02/12/19 11:00 24 168/75 Mechanical Ventilator 35 02/12/19 11:00 88 22 95 Mechanical Ventilator 35 02/12/19 11:00 76 24 35 02/12/19 10:30 85 25 168/76 (106) 98 02/12/19 10:00 81 23 168/75 (106) 100 02/12/19 10:00 24 146/69 Mechanical Ventilator 35.0 02/12/19 09:38 136/62 02/12/19 09:38 136/62 02/12/19 09:37 94 136/62 02/12/19 09:30 80 22 151/69 (96) 98 02/12/19 09:16 94 30 35 02/12/19 09:00 24 156/69 Mechanical Ventilator 35 02/12/19 09:00 77 24 146/69 (94) 98 02/12/19 08:30 77 24 160/67 (98) 97 02/12/19 08:07 30 136/62 Mechanical Ventilator 50.0 35 02/12/19 08:00 97.9 78 25 156/69 (98) 98 02/12/19 08:00 45 02/12/19 08:00 74 02/12/19 07:30 84 22 151/68 (95) 99 02/12/19 07:15 86 30 100 Mechanical Ventilator 35 02/12/19 07:00 75 24 149/65 (93) 95 02/12/19 07:00 24 136/62 Mechanical Ventilator 35 02/12/19 07:00 84 28 35 02/12/19 07:00 84 24 96 Mechanical Ventilator 35 Intake and Output 02/12/19 02/13/19 18:59 06:59 Intake Total 2421.313 ml 2349.834 ml Output Total 435 ml Balance 2421.313 ml 1914.834 ml Free Water 100 ml 200 ml IV Total 2076.313 ml 1729.834 ml Tube Feeding 245 ml 420 ml Output Urine Total 435 ml # Voids 550 330 Laboratory Tests 02/12/19 16:15: Sodium Level 140, Potassium Level 4.5, Chloride Level 110H, Carbon Dioxide Level 16L, Anion Gap 14, Blood Urea Nitrogen 64H, Creatinine 3.9H, Estimat Glomerular Filtration Rate 15.9, Glucose Level 178H, Calcium Level 7.3L 02/12/19 16:20: Urine Color Pale yellow, Urine Appearance Slightly cloudy, Urine pH 5, Urine Specific [place] 1.015, Urine Protein 2+H, Urine Glucose (UA) Negative, Urine Ketones Negative, Urine Blood 2+H, Urine Nitrite Negative, Urine Bilirubin Negative, Urine Urobilinogen Normal, Urine Leukocyte Esterase Negative, Urine RBC 10-15H, Urine WBC 0-2, Urine Squamous Epithelial Cells Occasional, Urine Amorphous Sediment ModerateH, Urine Bacteria Few, Urine Random Sodium 44 02/13/19 04:00: Urine Eosinophils [Pending] 02/13/19 05:00: Sodium Level 142, Potassium Level 4.8, Chloride Level 111H, Carbon Dioxide Level 15L, Anion Gap 16H, Blood Urea Nitrogen 70H, Creatinine 3.8H, Estimat Glomerular Filtration Rate 16.4, Glucose Level 198H, Calcium Level 8.1L, White Blood Count 11.6#H, Red Blood Count 3.35L, Hemoglobin 9.4L, Hematocrit 28.7L, Mean Corpuscular Volume 86, Mean Corpuscular Hemoglobin 28.1, Mean Corpuscular Hemoglobin Concent 32.8, Red Cell Distribution Width 18.2H, Platelet Count 257, Mean Platelet Volume 6.3L, Neutrophils (%) (Auto) , Lymphocytes (%) (Auto) , Monocytes (%) (Auto) , Eosinophils (%) (Auto) , Basophils (%) (Auto) , Neutrophils % (Manual) [Pending], Lymphocytes % (Manual) [Pending], Platelet Estimate [Pending], Platelet Morphology [Pending], Activated Partial Thromboplast Time 29, Uric Acid 6.9, Phosphorus Level 5.3H, Magnesium Level 2.9H , Total Bilirubin 0.3, Gamma Glutamyl Transpeptidase 473H, Aspartate Amino Transf (AST/SGOT) 49H, Alanine Aminotransferase (ALT/SGPT) 74, Alkaline Phosphatase 249H, Total Creatine Kinase 171, Troponin I 3.192H, C-Reactive Protein, Quantitative 8.2H, Pro-B-Type Natriuretic Peptide 6068H, Total Protein 6.6#, Albumin 2.0L, Globulin 4.6, Albumin/Globulin Ratio 0.4L, Triglycerides Level 200H, Thyroid Stimulating Hormone (TSH) 0.460 Height (Feet): 6 Height (Inches): 0.00 Weight (Pounds): 211 General Appearance: other - sedated - intubated EENT: other - ETT Neck: normal alignment Cardiovascular: tachycardia Respiratory/Chest: decreased breath sounds Abdomen: normal bowel sounds Edema: 1+ Arm (L), 1+ Arm (R), 1+ Leg (L), 1+ Leg (R), 1+ Pedal (L), 1+ Pedal ( R), 1+ Generalized Objective Current Medications Medications (Trade) Dose Ordered Sig/Marquis Route PRN Reason Start Time Stop Time Status Last Admin Dose Admin Acetaminophen (Tylenol) 650 mg Q4H PRN ORAL Mild Pain (Pain Scale 1-3) 02/07/19 11:15 03/08/19 17:29 02/07/19 23:01 Acetaminophen/ Butalbital/ Caffeine (Fioricet) 1 tab Q8H PRN ORAL For Headache 02/08/19 17:15 03/10/19 17:14 Albuterol/ Ipratropium (Albuterol/ Ipratropium) 3 ml Q4HRT HHN 02/09/19 15:00 02/14/19 14:59 02/13/19 06:41 Alprazolam (Xanax) 0.5 mg Q6H PRN ORAL For Anxiety 02/08/19 20:15 02/15/19 20:14 02/08/19 20:51 Amlodipine Besylate (Norvasc) 10 mg DAILY NG 02/12/19 16:00 03/14/19 15:59 02/12/19 17:23 Aspirin (Ecotrin) 81 mg DAILY ORAL 02/08/19 09:00 03/09/19 08:59 02/12/19 09:39 Atorvastatin Calcium (Lipitor) 40 mg QHS ORAL 02/08/19 21:00 03/10/19 20:59 02/12/19 20:03 Bisacodyl (Dulcolax) 5 mg DAILYPRN PRN ORAL Constipation 02/08/19 17:15 03/10/19 17:14 Chlorhexidine Gluconate (Jessy-Hex 2%) 1 applic DAILY@2000 TOPIC 02/13/19 20:00 03/15/19 19:59 Dextrose (Dextrose 50%) 25 ml Q30M PRN IV HYPOGLYCEMIA 02/11/19 17:15 03/13/19 17:14 Dextrose (Dextrose 50%) 50 ml Q30M PRN IV HYPOGLYCEMIA 02/11/19 17:15 03/13/19 17:14 Docusate Sodium (Colace) 100 mg TID GT 02/12/19 18:00 03/12/19 08:59 02/12/19 17:24 Enoxaparin Sodium (Lovenox) 40 mg Q24H SUBQ 02/07/19 21:00 03/08/19 20:59 02/12/19 20:03 Fluconazole/ Sodium Chloride 100 ml @ 100 mls/hr Q24H IV 02/09/19 18:00 02/16/19 17:59 02/12/19 17:24 Guaifenesin (Mucinex ER) 600 mg TWICE A DAY ORAL 02/07/19 18:00 03/09/19 08:59 02/12/19 17:24 Heparin Sodium/ Sodium Chloride (Heparin 1000 units/500ml Premix) 1,000 unit ONCE ONCE IV 02/13/19 10:00 02/13/19 10:01 Hydralazine HCl (Apresoline) 25 mg Q4H PRN NG SBP > 160mmHg 02/12/19 16:00 03/08/19 11:14 Hydralazine HCl (Apresoline) 25 mg Q6HR NG 02/12/19 18:00 03/14/19 17:59 02/13/19 05:37 Insulin Human Regular (NovoLIN R) 5 units PRN PRN IV BS 200-299 02/11/19 17:15 03/13/19 17:14 02/13/19 03:06 Insulin Human Regular (NovoLIN R) 10 units PRN PRN IV BS=>300 02/11/19 17:15 03/13/19 17:14 02/13/19 02:05 Insulin Human Regular 100 units/ Sodium Chloride 100 ml @ 0 mls/hr Q24H IV 02/12/19 10:42 03/14/19 10:41 02/13/19 01:01 Lansoprazole (Prevacid) 30 mg BID NG 02/12/19 18:00 03/14/19 17:59 02/12/19 17:24 Lidocaine HCl (Xylocaine 1% 30ml) 30 ml ONCE ONCE INJ 02/13/19 10:00 02/13/19 10:01 Magnesium Hydroxide (Mom) 30 ml DAILYPRN PRN ORAL Constipation 02/08/19 15:30 03/10/19 15:29 02/08/19 16:08 Methylprednisolone Sodium Succinate (Solu-MEDROL) 40 mg EVERY 12 HOURS IVP 02/10/19 21:00 03/12/19 20:59 02/12/19 20:01 Metoprolol Tartrate (Lopressor) 100 mg Q12HR ORAL 02/07/19 21:00 03/08/19 20:59 02/12/19 20:01 Miscellaneous Medication (Insulin Rate Change) 1 ea PRN PRN MISC Per rx protocol 02/11/19 17:15 03/13/19 17:14 02/13/19 03:58 Morphine Sulfate (Morphine Sulfate) 2 mg Q2H PRN IVP Moderate Pain (Pain Scale 4-6) 02/07/19 16:15 02/14/19 16:14 02/11/19 13:36 Morphine Sulfate (Morphine Sulfate) 4 mg Q2H PRN IVP Severe Pain (Pain Scale 7-10) 02/07/19 16:15 02/14/19 16:14 02/13/19 05:37 Nitroglycerin (Ntg) 0.4 mg Q5M PRN SL Prn Chest Pain 02/07/19 11:00 03/08/19 17:29 02/08/19 07:42 Ondansetron HCl (Zofran) 4 mg Q6H PRN IVP Nausea & Vomiting 02/07/19 11:15 03/08/19 11:14 02/09/19 00:58 Patient Own Medication (Patient's Own Med) 1 ea BID ORAL 02/07/19 18:00 03/09/19 17:59 02/12/19 18:28 Patient Own Medication (Patient's Own Med) 1 ea QOD ORAL 02/13/19 09:00 03/15/19 08:59 Patient Own Medication (Patient's Own Med) 2 ea DAILY ORAL 02/08/19 09:00 03/10/19 08:59 02/12/19 09:40 Piperacillin Sod/ Tazobactam Sod 3.375 gm/Sodium Chloride 110 ml @ 27.5 mls/hr Q12HR@0600,1800 IVPB 02/11/19 18:00 02/18/19 17:59 02/13/19 05:37 Polyethylene Glycol (Miralax) 17 gm BEDTIME ORAL 02/08/19 21:00 03/10/19 20:59 02/12/19 20:03 Propofol 100 ml @ 0 mls/hr Q24H IV 02/11/19 08:30 02/13/19 08:29 02/13/19 06:01 Sodium Chloride 1,000 ml @ 100 mls/hr Q10H IVLG 02/07/19 11:00 03/08/19 18:17 02/13/19 06:00 Trimethoprim/ Sulfamethoxazole 25 ml/Dextrose 575 ml @ 383.333 mls/hr Q12HR@0000,1200 IV 02/11/19 12:00 02/18/19 11:59 02/13/19 00:42 Vancomycin HCl (Vanco rx to dose) 1 ea DAILY PRN MISC . 02/10/19 19:45 03/12/19 19:44 Carlito Nichols MD Feb 13, 2019 06:56
--- NOTE | 2019-02-13 07:00 | NUR ---
NURSE NOTES: Received pt from [facility]. pt is sedated, RASS -2. Orally intubated ETT AC 24/TV 550/Fio2 40%/PEEP 5, RR 24, SPo2 100%, non labored even breathing. Rhonchi bilateral b/s, moderate thin white secretions. RFA 20G, LW 20G, LAC 20G running Dipravan@50mcg/kg/hr, insulin gtt @7u/hr, NS@100m/hr. Generalized edema. SR on cardiac monitor technician. OGT running Glucerna 1.5@35cc/hr, 20cc residual noted, abdomen distended and firm, hob 35 degrees. bilateral wrist restraints in place, skin intact and warm to touch. PICC scheduled today, consent to be signed by doctors. FC draining well to gravity. No BM, OB to be collected. Bed locked, alarmed and in lowest position. Will continue plan of care.
--- NOTE | 2019-02-13 07:21 | NUR ---
RESPIRATORY NOTES: Received Patient on Vent settings ACVC 24, VT 550, FIO2 35%, PEEP +5. Patient has a 7.5 ETT at 25cm at the lip, secured with anchorfast. Bilateral rhonchi noted throughout both lung al[place]. Suction thick white secretions Q2 and PRN. Vent alarms are on and audible. Vent plugged into red outlet. Will continue to monitor throughout the day.
[2019-02-13] MEDS: ETRAVIRINE 200 MG ORAL SCH (08:27)
[2019-02-13] MEDS: RALTEGRAVIR 400 MG ORAL SCH ×2 (08:27→18:06)
[2019-02-13] MEDS: guaiFENesin ER 600mg tab ORAL SCH ×2 (08:27→18:06)
[2019-02-13] MEDS: Solu-MEDROL 40mg Inj IVP SCH ×2 (08:27→20:33)
[2019-02-13] MEDS: Docusate 100mg/10ml Liq GT SCH ×3 (08:28→18:06)
[2019-02-13] MEDS: Aspirin EC 81mg tab ORAL SCH (08:28)
--- NOTE | 2019-02-13 08:43 | Pulmonolgy Critical Care Note ---
Critical Care - Asmt/Plan Problems: (1) Endotracheally intubated (2) Acute hypoxemic respiratory failure (3) Pneumonia (4) NSTEMI (non-ST elevated myocardial infarction) (5) AIDS (6) HIV disease (7) Hypertension (8) MDD (major depressive disorder), recurrent episode, moderate (9) Anemia (10) CKD (chronic kidney disease) (11) History of stroke (12) Diabetes (13) Anxiety (14) Malignant hypertension Assessment/Plan: VDRF ARDS Acute respiratory failure B pulmonary infiltrates, ? multilobar CAP vs atypical infection vs other ? PJP AIDS (CD4 191) NSTEMI H/O prior CVA HTN HL DM with uncontrolled BS ISH on CKD Anemia PLAN: Continue current vent settings AC 24 TV 550, PEEP 5, titrate FiO2 to keep SaO2 > 92% RTC and PRN HHN's Continue Abx per ID (Zosyn, Vanco, TMP-SMX) + flucon per ID F/U Cx's and BAL studies Decrease SM to 30 IV BID Monitor volumes and renal function, mIVF per renal, consider UF/HD F/U cards recs: ASA, statin, ARB, per cards hold off on IVUH, continue LMWH Px, will need further ischemia eval/cath once stabilized DVT Px: LMWH Continue insulin gtt, F/U ENDO recs D/C propofol, start Fent gtt for RASS - 2 and PRN Versed FC D/W RV @ bedside Disposition: keep in ICU Time Spent (Minutes): 40 Notes Reviewed: guest services director, cardio, renal, ID, other - HEME ONC Discussed with: nurses, consultants Critical Care - Objective Last 24 Hour Vital Signs Date Time Temp Pulse Resp B/P (MAP) Pulse Ox O2 Delivery O2 Flow Rate FiO2 02/13/19 08:31 75 25 35 02/13/19 08:29 80 132/75 02/13/19 08:28 80 132/75 02/13/19 07:00 22 132/75 Mechanical Ventilator 35 02/13/19 07:00 80 20 132/64 (86) 93 02/13/19 06:41 88 24 98 Mechanical Ventilator 35 02/13/19 06:39 78 27 35 02/13/19 06:35 78 24 96 Mechanical Ventilator 35 02/13/19 06:01 27 140/70 35 02/13/19 06:00 81 27 145/75 (98) 94 02/13/19 05:37 149/75 02/13/19 05:25 86 27 35 35 02/13/19 05:00 87 21 140/70 (93) 94 02/13/19 05:00 25 149/75 Mechanical Ventilator 35 02/13/19 04:00 Mechanical Ventilator Mechanical Ventilator Mechanical Ventilator 02/13/19 04:00 35 02/13/19 04:00 20 146/112 02/13/19 04:00 99.3 97 16 146/112 (123) 93 02/13/19 04:00 106 02/13/19 03:31 21 164/75 Mechanical Ventilator 35 02/13/19 03:27 78 24 98 Mechanical Ventilator 35 02/13/19 03:19 93 26 96 Mechanical Ventilator 35 02/13/19 03:18 93 26 35 35 02/13/19 03:00 24 181/101 Mechanical Ventilator 35 02/13/19 03:00 94 24 164/75 (104) 93 02/13/19 02:30 93 22 177/84 (115) 95 02/13/19 02:00 89 16 160/79 (106) 97 02/13/19 02:00 21 169/85 Mechanical Ventilator 35 02/13/19 01:30 84 24 157/75 (102) 95 02/13/19 01:01 88 28 35 35 02/13/19 01:00 79 22 148/74 (98) 96 02/13/19 01:00 24 157/73 Mechanical Ventilator 35 02/13/19 00:41 139/82 02/13/19 00:30 83 22 156/75 (102) 96 02/13/19 00:00 98.9 82 20 133/80 (97) 97 02/13/19 00:00 Mechanical Ventilator Mechanical Ventilator Mechanical Ventilator 02/13/19 00:00 35 02/13/19 00:00 24 139/82 Mechanical Ventilator 35 02/13/19 00:00 96 02/12/19 23:42 29 128/65 Mechanical Ventilator 50.0 35 02/12/19 23:41 22 129/77 Mechanical Ventilator 35 02/12/19 23:33 72 24 98 Mechanical Ventilator 35 02/12/19 23:30 75 20 145/80 (101) 99 02/12/19 23:22 79 29 96 Mechanical Ventilator 35 02/12/19 23:22 74 29 35 35 02/12/19 23:00 24 128/65 35 02/12/19 23:00 73 22 137/72 (93) 96 02/12/19 22:30 72 22 141/77 (98) 96 02/12/19 22:00 72 21 132/75 (94) 96 02/12/19 22:00 22 141/77 Mechanical Ventilator 35 02/12/19 21:30 70 20 136/70 (92) 96 02/12/19 21:00 20 148/74 Mechanical Ventilator 35 02/12/19 21:00 72 20 148/74 (98) 97 02/12/19 20:39 75 25 35 35 02/12/19 20:30 75 22 137/77 (97) 98 02/12/19 20:23 24 128/65 Mechanical Ventilator 50.0 35 02/12/19 20:22 23 134/72 Mechanical Ventilator 35 02/12/19 20:01 68 128/65 02/12/19 20:00 97.9 70 23 134/72 (92) 96 02/12/19 20:00 23 134/72 Mechanical Ventilator 35 02/12/19 20:00 35 02/12/19 20:00 73 02/12/19 20:00 Mechanical Ventilator Mechanical Ventilator Mechanical Ventilator 02/12/19 19:30 68 24 128/65 (86) 98 02/12/19 19:14 68 24 98 Mechanical Ventilator 35 02/12/19 19:04 67 24 97 Mechanical Ventilator 35 02/12/19 19:03 67 24 35 35 02/12/19 19:00 66 24 133/70 (91) 98 02/12/19 19:00 24 133/70 Mechanical Ventilator 98 02/12/19 18:30 68 21 134/71 (92) 97 02/12/19 18:00 68 21 141/72 (95) 96 02/12/19 18:00 24 141/72 Mechanical Ventilator 35 02/12/19 17:52 97.9 02/12/19 17:30 67 23 139/70 (93) 95 02/12/19 17:30 24 128/65 Mechanical Ventilator 50.0 35 02/12/19 17:23 151/75 02/12/19 17:23 67 151/75 02/12/19 17:00 65 24 35 02/12/19 17:00 24 139/72 Mechanical Ventilator 35 02/12/19 17:00 67 21 149/67 (94) 95 02/12/19 16:30 66 24 154/65 (94) 94 02/12/19 16:00 97.9 67 24 151/75 (100) 99 02/12/19 16:00 24 149/67 Mechanical Ventilator 35 02/12/19 16:00 67 02/12/19 16:00 35 02/12/19 15:30 67 22 150/82 (104) 99 02/12/19 15:29 69 28 97 Mechanical Ventilator 35 02/12/19 15:28 69 28 35 02/12/19 15:15 68 28 97 Mechanical Ventilator 35 02/12/19 15:00 24 152/68 Mechanical Ventilator 35 02/12/19 15:00 66 22 149/67 (94) 95 02/12/19 14:30 67 24 154/65 (94) 95 02/12/19 14:21 24 152/66 Mechanical Ventilator 50.0 35 02/12/19 14:00 67 23 152/68 (96) 94 02/12/19 14:00 24 152/68 Mechanical Ventilator 35 02/12/19 13:30 68 24 152/69 (96) 94 02/12/19 13:00 78 24 35 02/12/19 13:00 24 157/75 Mechanical Ventilator 35 02/12/19 13:00 72 25 157/75 (102) 94 02/12/19 12:30 75 23 159/71 (100) 95 02/12/19 12:07 24 159/71 Mechanical Ventilator 35 02/12/19 12:00 35 02/12/19 12:00 98.6 76 23 152/66 (94) 94 02/12/19 12:00 79 02/12/19 11:45 77 23 166/74 (104) 94 02/12/19 11:38 30 136/62 Mechanical Ventilator 50.0 35 02/12/19 11:30 90 24 215/97 (136) 96 02/12/19 11:15 90 22 100 Mechanical Ventilator 35 02/12/19 11:00 89 26 175/85 (115) 98 02/12/19 11:00 24 168/75 Mechanical Ventilator 35 02/12/19 11:00 88 22 95 Mechanical Ventilator 35 02/12/19 11:00 76 24 35 02/12/19 10:30 85 25 168/76 (106) 98 02/12/19 10:00 81 23 168/75 (106) 100 02/12/19 10:00 24 146/69 Mechanical Ventilator 35.0 02/12/19 09:38 136/62 02/12/19 09:38 136/62 02/12/19 09:37 94 136/62 02/12/19 09:30 80 22 151/69 (96) 98 02/12/19 09:16 94 30 35 02/12/19 09:00 24 156/69 Mechanical Ventilator 35 02/12/19 09:00 77 24 146/69 (94) 98 Status: sedated - intubated Condition: critical HEENT: atraumatic, normocephalic, other - ETT OGT Lungs: rhonchi Heart: HR/BP stable Abdomen: soft, non-tender, active bowel sounds Extremities: no C/C/E Accucheck: 177 Blood Sugars: BS controlled Critical Care - Subjective ROS Limited/Unobtainable: Yes ICU Day: 8 Intubation Day: 6 Interval Events: FiO2 40 PEEP 5 wors met acidosis and ISH Tri inc Condition: critical IV Access: peripheral EKG Rhythm: Sinus Rhythm FI02: 35 Vent Support Breath Rate: 24 Vent Support Mode: AC Vent Tidal Volume: 550 Sputum Amount: Moderate PEEP: 5.0 PIP: 43 Secretions: mod clear Fluids: NS100 Drips: Prop, insulin Tube Feeding Amount: 35 I&O: Intake and Output 02/12/19 02/13/19 19:00 07:00 Intake Total 2590.816 ml 2280.861 ml Output Total 495 ml Balance 2590.816 ml 1785.861 ml Free Water 100 ml 200 ml IV Total 2245.816 ml 1660.861 ml Tube Feeding 245 ml 420 ml Output Urine Total 495 ml # Voids 545 285 Subjective: Sedated on propofol ET-Tube: 7.5 ET Position: 25 Labs: Laboratory Tests Test 02/12/19 16:15 02/12/19 16:20 02/13/19 04:00 02/13/19 05:00 Sodium Level 140 MMOL/L (136-145) 142 MMOL/L (136-145) Potassium Level 4.5 MMOL/L (3.5-5.1) 4.8 MMOL/L (3.5-5.1) Chloride Level 110 MMOL/L (98-107) H 111 MMOL/L (98-107) H Carbon Dioxide Level 16 MMOL/L (21-32) L 15 MMOL/L (21-32) L Anion Gap 14 mmol/L (5-15) 16 mmol/L (5-15) H Blood Urea Nitrogen 64 mg/dL (7-18) H 70 mg/dL (7-18) H Creatinine 3.9 MG/DL (0.55-1.30) H 3.8 MG/DL (0.55-1.30) H Estimat Glomerular Filtration Rate 15.9 mL/min (>60) 16.4 mL/min (>60) Glucose Level 178 MG/DL (74-106) H 198 MG/DL (74-106) H Calcium Level 7.3 MG/DL (8.5-10.1) L 8.1 MG/DL (8.5-10.1) L Urine Color Pale yellow Urine Appearance Slightly cloudy Urine pH 5 (4.5-8.0) Urine Specific [place] 1.015 (1.005-1.035) Urine Protein 2+ (NEGATIVE) H Urine Glucose (UA) Negative (NEGATIVE) Urine Ketones Negative (NEGATIVE) Urine Blood 2+ (NEGATIVE) H Urine Nitrite Negative (NEGATIVE) Urine Bilirubin Negative (NEGATIVE) Urine Urobilinogen Normal MG/DL (0.0-1.0) Urine Leukocyte Esterase Negative (NEGATIVE) Urine RBC 10-15 /HPF (0 - 0) H Urine WBC 0-2 /HPF (0 - 0) Urine Squamous Epithelial Cells Occasional /LPF Urine Amorphous Sediment Moderate /LPF (NONE) H Urine Bacteria Few /HPF (NONE) Urine Random Sodium 44 mmol/L (20-110) Urine Eosinophils None seen (NONE SEEN) White Blood Count 11.6 K/UL (4.8-10.8) #H Red Blood Count 3.35 M/UL (4.70-6.10) L Hemoglobin 9.4 G/DL (14.2-18.0) L Hematocrit 28.7 % (42.0-52.0) L Mean Corpuscular Volume 86 FL (80-99) Mean Corpuscular Hemoglobin 28.1 PG (27.0-31.0) Mean Corpuscular Hemoglobin Concent 32.8 G/DL (32.0-36.0) Red Cell Distribution Width 18.2 % (11.6-14.8) H Platelet Count 257 K/UL (150-450) Mean Platelet Volume 6.3 FL (6.5-10.1) L Neutrophils (%) (Auto) % (45.0-75.0) Lymphocytes (%) (Auto) % (20.0-45.0) Monocytes (%) (Auto) % (1.0-10.0) Eosinophils (%) (Auto) % (0.0-3.0) Basophils (%) (Auto) % (0.0-2.0) Differential Total Cells Counted 100 Neutrophils % (Manual) 90 % (45-75) H Lymphocytes % (Manual) 7 % (20-45) L Monocytes % (Manual) 3 % (1-10) Eosinophils % (Manual) 0 % (0-3) Basophils % (Manual) 0 % (0-2) Band Neutrophils 0 % (0-8) Platelet Estimate Adequate Platelet Morphology Normal Activated Partial Thromboplast Time 29 SEC (23-33) Uric Acid 6.9 MG/DL (2.6-7.2) Phosphorus Level 5.3 MG/DL (2.5-4.9) H Magnesium Level 2.9 MG/DL (1.8-2.4) H Total Bilirubin 0.3 MG/DL (0.2-1.0) Gamma Glutamyl Transpeptidase 473 U/L (5-85) H Aspartate Amino Transf (AST/SGOT) 49 U/L (15-37) H Alanine Aminotransferase (ALT/SGPT) 74 U/L (12-78) Alkaline Phosphatase 249 U/L (46-116) H Total Creatine Kinase 171 U/L (26-308) Troponin I 3.192 ng/mL (0.000-0.056) C-Reactive Protein, Quantitative 8.2 mg/dL (0.00-0.90) H Pro-B-Type Natriuretic Peptide 6068 pg/mL (0-125) H Total Protein 6.6 G/DL (6.4-8.2) # Albumin 2.0 G/DL (3.4-5.0) L Globulin 4.6 g/dL Albumin/Globulin Ratio 0.4 (1.0-2.7) L Triglycerides Level 200 MG/DL (30-150) H Thyroid Stimulating Hormone (TSH) 0.460 uiU/mL (0.358-3.740) Test 02/13/19 08:23 Arterial Blood pH 7.278 (7.350-7.450) Arterial Blood Partial Pressure CO2 33.1 mmHg (35.0-45.0) L Arterial Blood Partial Pressure O2 83.2 mmHg (75.0-100.0) Arterial Blood HCO3 15.1 mmol/L (22.0-26.0) *L Arterial Blood Oxygen Saturation 94.1 % (95-100) L Arterial Blood Base Excess -10.6 (-2-2) *L Benny Test Positive Brett Meredith MD Feb 13, 2019 08:43
--- NOTE | 2019-02-13 08:48 | NUR ---
NURSE NOTES: Received orders to wean patient off Diprivan and start Fentanyl drip to meet RASS -2 and Versed 1mg IVP q2hrs for agitation PRN. Read back given and verified. Decreased Dipravan to 45mcg/kg/hr.
[2019-02-13] MEDS ORDERED: TENOFOVIR DISOPROXIL FUMARATE 300 MG ORAL SCH (09:00)
[2019-02-13] MEDS ORDERED: Lidocaine 1% Plain 30 ml INJ PRN (10:00)
[2019-02-13] MEDS ORDERED: Heparin1,000 units/500ml Premix(Conc:2 units/ml) IV PRN (10:00)
--- NOTE | 2019-02-13 10:00 | NUR ---
NURSE NOTES: Started Fentanyl drip @ 10mcg/kg/hr, will titrate up per protocol to meet RASS -2. Titrated propofol down to 30mcg/hr.
--- NOTE | 2019-02-13 10:29 | NUR ---
RD ASSESSMENT & RECOMMENDATIONS SEE CARE ACTIVITY FOR COMPLETE ASSESSMENT DAILY ESTIMATED NEEDS: Needs based on Critical care, HIV 85kg adj 22-30 kcals/kg 6319-0176 total kcals 1.2-2 g protein/kg 102-170 g total protein 25-30 mL/kg 9324-8338 total fluid mLs NUTRITION DIAGNOSIS: Swallowing difficulty r/t respiratory status as evidenced by pt on bipap, desat to 78%, critical ABG results, now orally intubated, ICU status. CURRENT TF:Glucerna 1.5 @35ml/hr x24 hrs + Prosource TID ENTERAL NUTRITION RECOMMENDATIONS: Glucerna 1.5 @ 55ml/hr x 24 hrs to provide 1320ml, 1980kcal, 109g prot, 1002ml free water - WITHOUT PROPOFOL: rec to increase goal rate to 55ml/hr x 24 hrs - Flush per MD/ HOB over 30 degrees. ADDITIONAL RECOMMENDATIONS: 1) WITHOUT PROPOFOL-> rec to increase TF as above 2) Monitor renal fxn, phos, need for TF change 3) Calibrated bedscale wt, weekly wts 4) Monitor BGs closely- on insulin drip .
[2019-02-13] MEDS: Midazolam 2mg/2ml Inj IVP PRN ×3 (10:55→20:33)
--- NOTE | 2019-02-13 11:00 | NUR ---
NURSE NOTES: Turned off propofol and increased Fentanyl to 120mcg/hr. Patient seen agitated, trying to get up in bed. Versed 1mg IVP given as per ordered.
--- NOTE | 2019-02-13 11:13 | Cardiac Electrophysiology PN ---
Assessment/Plan Assessment/Plan 1. Non-ST elevation myocardial infarction with peak troponin of more than 10. Down to 2 and back up to 7. EKG shows nonspecific ST-T wave abnormalities. Consider cardiac catheterization after stabilized. Continue aspirin, Lipitor, Imdur and metoprolol 100 mg b.i.d. 2. Hypertension. Continue metoprolol 100 mg b.i.d., losartan 100 mg daily, Imdur 30 mg daily and p.r.n. hydralazine. 3. Respiratory failure due to Multilobar Pneumonia. Off respiratory isolation now per Dr. Mitchell 4. Hyperlipidemia. On Lipitor. 5. Human immunodeficiency virus. On anti-retroviral therapy with undetectable viral load. DW RN Subjective Subjective In ICU on the vent. Off pressors. On insulin drip Objective Last 24 Hour Vital Signs Date Time Temp Pulse Resp B/P (MAP) Pulse Ox O2 Delivery O2 Flow Rate FiO2 02/13/19 10:02 24 Mechanical Ventilator 50.0 35 02/13/19 10:01 24 155/75 Mechanical Ventilator 50.0 40 02/13/19 08:31 75 25 35 02/13/19 08:29 80 132/75 02/13/19 08:28 80 132/75 02/13/19 08:00 40 02/13/19 08:00 Mechanical Ventilator Mechanical Ventilator Mechanical Ventilator 02/13/19 07:00 22 132/75 Mechanical Ventilator 35 02/13/19 07:00 80 20 132/64 (86) 93 02/13/19 06:41 88 24 98 Mechanical Ventilator 35 02/13/19 06:39 78 27 35 02/13/19 06:35 78 24 96 Mechanical Ventilator 35 02/13/19 06:01 27 140/70 35 02/13/19 06:00 81 27 145/75 (98) 94 02/13/19 05:37 149/75 02/13/19 05:25 86 27 35 35 02/13/19 05:00 87 21 140/70 (93) 94 02/13/19 05:00 25 149/75 Mechanical Ventilator 35 02/13/19 04:00 Mechanical Ventilator Mechanical Ventilator Mechanical Ventilator 02/13/19 04:00 35 02/13/19 04:00 20 146/112 02/13/19 04:00 99.3 97 16 146/112 (123) 93 02/13/19 04:00 106 02/13/19 03:31 21 164/75 Mechanical Ventilator 35 02/13/19 03:27 78 24 98 Mechanical Ventilator 35 02/13/19 03:19 93 26 96 Mechanical Ventilator 35 02/13/19 03:18 93 26 35 35 02/13/19 03:00 24 181/101 Mechanical Ventilator 35 02/13/19 03:00 94 24 164/75 (104) 93 02/13/19 02:30 93 22 177/84 (115) 95 02/13/19 02:00 89 16 160/79 (106) 97 02/13/19 02:00 21 169/85 Mechanical Ventilator 35 02/13/19 01:30 84 24 157/75 (102) 95 02/13/19 01:01 88 28 35 35 02/13/19 01:00 79 22 148/74 (98) 96 02/13/19 01:00 24 157/73 Mechanical Ventilator 35 02/13/19 00:41 139/82 02/13/19 00:30 83 22 156/75 (102) 96 02/13/19 00:00 98.9 82 20 133/80 (97) 97 02/13/19 00:00 Mechanical Ventilator Mechanical Ventilator Mechanical Ventilator 02/13/19 00:00 35 02/13/19 00:00 24 139/82 Mechanical Ventilator 35 02/13/19 00:00 96 02/12/19 23:42 29 128/65 Mechanical Ventilator 50.0 35 02/12/19 23:41 22 129/77 Mechanical Ventilator 35 02/12/19 23:33 72 24 98 Mechanical Ventilator 35 02/12/19 23:30 75 20 145/80 (101) 99 02/12/19 23:22 79 29 96 Mechanical Ventilator 35 02/12/19 23:22 74 29 35 35 02/12/19 23:00 24 128/65 35 02/12/19 23:00 73 22 137/72 (93) 96 02/12/19 22:30 72 22 141/77 (98) 96 02/12/19 22:00 72 21 132/75 (94) 96 02/12/19 22:00 22 141/77 Mechanical Ventilator 35 02/12/19 21:30 70 20 136/70 (92) 96 02/12/19 21:00 20 148/74 Mechanical Ventilator 35 02/12/19 21:00 72 20 148/74 (98) 97 02/12/19 20:39 75 25 35 35 02/12/19 20:30 75 22 137/77 (97) 98 02/12/19 20:23 24 128/65 Mechanical Ventilator 50.0 35 02/12/19 20:22 23 134/72 Mechanical Ventilator 35 02/12/19 20:01 68 128/65 02/12/19 20:00 97.9 70 23 134/72 (92) 96 02/12/19 20:00 23 134/72 Mechanical Ventilator 35 02/12/19 20:00 35 02/12/19 20:00 73 02/12/19 20:00 Mechanical Ventilator Mechanical Ventilator Mechanical Ventilator 02/12/19 19:30 68 24 128/65 (86) 98 02/12/19 19:14 68 24 98 Mechanical Ventilator 35 02/12/19 19:04 67 24 97 Mechanical Ventilator 35 02/12/19 19:03 67 24 35 35 02/12/19 19:00 66 24 133/70 (91) 98 02/12/19 19:00 24 133/70 Mechanical Ventilator 98 02/12/19 18:30 68 21 134/71 (92) 97 02/12/19 18:00 68 21 141/72 (95) 96 02/12/19 18:00 24 141/72 Mechanical Ventilator 35 02/12/19 17:52 97.9 02/12/19 17:30 67 23 139/70 (93) 95 02/12/19 17:30 24 128/65 Mechanical Ventilator 50.0 35 02/12/19 17:23 151/75 02/12/19 17:23 67 151/75 02/12/19 17:00 65 24 35 02/12/19 17:00 24 139/72 Mechanical Ventilator 35 02/12/19 17:00 67 21 149/67 (94) 95 02/12/19 16:30 66 24 154/65 (94) 94 02/12/19 16:00 97.9 67 24 151/75 (100) 99 02/12/19 16:00 24 149/67 Mechanical Ventilator 35 02/12/19 16:00 67 02/12/19 16:00 35 02/12/19 15:30 67 22 150/82 (104) 99 02/12/19 15:29 69 28 97 Mechanical Ventilator 35 02/12/19 15:28 69 28 35 02/12/19 15:15 68 28 97 Mechanical Ventilator 35 02/12/19 15:00 24 152/68 Mechanical Ventilator 35 02/12/19 15:00 66 22 149/67 (94) 95 02/12/19 14:30 67 24 154/65 (94) 95 02/12/19 14:21 24 152/66 Mechanical Ventilator 50.0 35 02/12/19 14:00 67 23 152/68 (96) 94 02/12/19 14:00 24 152/68 Mechanical Ventilator 35 02/12/19 13:30 68 24 152/69 (96) 94 02/12/19 13:00 78 24 35 02/12/19 13:00 24 157/75 Mechanical Ventilator 35 02/12/19 13:00 72 25 157/75 (102) 94 02/12/19 12:30 75 23 159/71 (100) 95 02/12/19 12:07 24 159/71 Mechanical Ventilator 35 02/12/19 12:00 35 02/12/19 12:00 98.6 76 23 152/66 (94) 94 02/12/19 12:00 79 02/12/19 11:45 77 23 166/74 (104) 94 02/12/19 11:38 30 136/62 Mechanical Ventilator 50.0 35 02/12/19 11:30 90 24 215/97 (136) 96 02/12/19 11:15 90 22 100 Mechanical Ventilator 35 Intake and Output 02/12/19 02/13/19 19:00 07:00 Intake Total 2590.816 ml 2280.861 ml Output Total 495 ml Balance 2590.816 ml 1785.861 ml Free Water 100 ml 200 ml IV Total 2245.816 ml 1660.861 ml Tube Feeding 245 ml 420 ml Output Urine Total 495 ml # Voids 545 285 Laboratory Tests Test 02/12/19 16:15 02/12/19 16:20 02/13/19 04:00 02/13/19 05:00 Sodium Level 140 MMOL/L (136-145) 142 MMOL/L (136-145) Potassium Level 4.5 MMOL/L (3.5-5.1) 4.8 MMOL/L (3.5-5.1) Chloride Level 110 MMOL/L (98-107) H 111 MMOL/L (98-107) H Carbon Dioxide Level 16 MMOL/L (21-32) L 15 MMOL/L (21-32) L Anion Gap 14 mmol/L (5-15) 16 mmol/L (5-15) H Blood Urea Nitrogen 64 mg/dL (7-18) H 70 mg/dL (7-18) H Creatinine 3.9 MG/DL (0.55-1.30) H 3.8 MG/DL (0.55-1.30) H Estimat Glomerular Filtration Rate 15.9 mL/min (>60) 16.4 mL/min (>60) Glucose Level 178 MG/DL (74-106) H 198 MG/DL (74-106) H Calcium Level 7.3 MG/DL (8.5-10.1) L 8.1 MG/DL (8.5-10.1) L Urine Color Pale yellow Urine Appearance Slightly cloudy Urine pH 5 (4.5-8.0) Urine Specific [place] 1.015 (1.005-1.035) Urine Protein 2+ (NEGATIVE) H Urine Glucose (UA) Negative (NEGATIVE) Urine Ketones Negative (NEGATIVE) Urine Blood 2+ (NEGATIVE) H Urine Nitrite Negative (NEGATIVE) Urine Bilirubin Negative (NEGATIVE) Urine Urobilinogen Normal MG/DL (0.0-1.0) Urine Leukocyte Esterase Negative (NEGATIVE) Urine RBC 10-15 /HPF (0 - 0) H Urine WBC 0-2 /HPF (0 - 0) Urine Squamous Epithelial Cells Occasional /LPF Urine Amorphous Sediment Moderate /LPF (NONE) H Urine Bacteria Few /HPF (NONE) Urine Random Sodium 44 mmol/L (20-110) Urine Eosinophils None seen (NONE SEEN) White Blood Count 11.6 K/UL (4.8-10.8) #H Red Blood Count 3.35 M/UL (4.70-6.10) L Hemoglobin 9.4 G/DL (14.2-18.0) L Hematocrit 28.7 % (42.0-52.0) L Mean Corpuscular Volume 86 FL (80-99) Mean Corpuscular Hemoglobin 28.1 PG (27.0-31.0) Mean Corpuscular Hemoglobin Concent 32.8 G/DL (32.0-36.0) Red Cell Distribution Width 18.2 % (11.6-14.8) H Platelet Count 257 K/UL (150-450) Mean Platelet Volume 6.3 FL (6.5-10.1) L Neutrophils (%) (Auto) % (45.0-75.0) Lymphocytes (%) (Auto) % (20.0-45.0) Monocytes (%) (Auto) % (1.0-10.0) Eosinophils (%) (Auto) % (0.0-3.0) Basophils (%) (Auto) % (0.0-2.0) Differential Total Cells Counted 100 Neutrophils % (Manual) 90 % (45-75) H Lymphocytes % (Manual) 7 % (20-45) L Monocytes % (Manual) 3 % (1-10) Eosinophils % (Manual) 0 % (0-3) Basophils % (Manual) 0 % (0-2) Band Neutrophils 0 % (0-8) Platelet Estimate Adequate Platelet Morphology Normal Activated Partial Thromboplast Time 29 SEC (23-33) Uric Acid 6.9 MG/DL (2.6-7.2) Phosphorus Level 5.3 MG/DL (2.5-4.9) H Magnesium Level 2.9 MG/DL (1.8-2.4) H Total Bilirubin 0.3 MG/DL (0.2-1.0) Gamma Glutamyl Transpeptidase 473 U/L (5-85) H Aspartate Amino Transf (AST/SGOT) 49 U/L (15-37) H Alanine Aminotransferase (ALT/SGPT) 74 U/L (12-78) Alkaline Phosphatase 249 U/L (46-116) H Total Creatine Kinase 171 U/L (26-308) Troponin I 3.192 ng/mL (0.000-0.056) C-Reactive Protein, Quantitative 8.2 mg/dL (0.00-0.90) H Pro-B-Type Natriuretic Peptide 6068 pg/mL (0-125) H Total Protein 6.6 G/DL (6.4-8.2) # Albumin 2.0 G/DL (3.4-5.0) L Globulin 4.6 g/dL Albumin/Globulin Ratio 0.4 (1.0-2.7) L Triglycerides Level 198 MG/DL (30-150) H Thyroid Stimulating Hormone (TSH) 0.460 uiU/mL (0.358-3.740) Test 02/13/19 08:23 Arterial Blood pH 7.278 (7.350-7.450) Arterial Blood Partial Pressure CO2 33.1 mmHg (35.0-45.0) L Arterial Blood Partial Pressure O2 83.2 mmHg (75.0-100.0) Arterial Blood HCO3 15.1 mmol/L (22.0-26.0) *L Arterial Blood Oxygen Saturation 94.1 % (95-100) L Arterial Blood Base Excess -10.6 (-2-2) *L Benny Test Positive Objective HEAD AND NECK: No JVD.Orally intubated LUNGS: Coarse rhonchi. CARDIOVASCULAR: Regular S1 and S2 with no gallop or murmur. ABDOMEN: Soft. EXTREMITIES: No pitting edema. Murray Francois MD Feb 13, 2019 11:13
--- NOTE | 2019-02-13 11:34 | Nephrology Progress Note ---
Assessment/Plan Problem List: (1) ISH (acute kidney injury) (2) HIV (human immunodeficiency virus infection) (3) NSTEMI (non-ST elevated myocardial infarction) (4) Hypoxia (5) Anemia (6) Diabetes Assessment Acute Renal failure- Cr leveling- Urine out put is good Acute respiratory failure- Require intubation and Mechanical Ventilation- Anemia- Elevated troponin / IL HTN DM HIV Antibody + Plan UA and urine studies Avoid Nephrotoxics as possible Monitor renal parameters keep BP and BS in check Per orders may require HD Kidney RADHA noted adjust BP meds add Isordil Subjective ROS Limited/Unobtainable: Yes Objective Objective Last 24 Hour Vital Signs Date Time Temp Pulse Resp B/P (MAP) Pulse Ox O2 Delivery O2 Flow Rate FiO2 02/13/19 10:02 24 Mechanical Ventilator 50.0 35 02/13/19 10:01 24 155/75 Mechanical Ventilator 50.0 40 02/13/19 08:31 75 25 35 02/13/19 08:29 80 132/75 02/13/19 08:28 80 132/75 02/13/19 08:00 40 02/13/19 08:00 Mechanical Ventilator Mechanical Ventilator Mechanical Ventilator 02/13/19 07:00 22 132/75 Mechanical Ventilator 35 02/13/19 07:00 80 20 132/64 (86) 93 02/13/19 06:41 88 24 98 Mechanical Ventilator 35 02/13/19 06:39 78 27 35 02/13/19 06:35 78 24 96 Mechanical Ventilator 35 02/13/19 06:01 27 140/70 35 02/13/19 06:00 81 27 145/75 (98) 94 02/13/19 05:37 149/75 02/13/19 05:25 86 27 35 35 02/13/19 05:00 87 21 140/70 (93) 94 02/13/19 05:00 25 149/75 Mechanical Ventilator 35 02/13/19 04:00 Mechanical Ventilator Mechanical Ventilator Mechanical Ventilator 02/13/19 04:00 35 02/13/19 04:00 20 146/112 02/13/19 04:00 99.3 97 16 146/112 (123) 93 02/13/19 04:00 106 02/13/19 03:31 21 164/75 Mechanical Ventilator 35 02/13/19 03:27 78 24 98 Mechanical Ventilator 35 02/13/19 03:19 93 26 96 Mechanical Ventilator 35 02/13/19 03:18 93 26 35 35 02/13/19 03:00 24 181/101 Mechanical Ventilator 35 02/13/19 03:00 94 24 164/75 (104) 93 02/13/19 02:30 93 22 177/84 (115) 95 02/13/19 02:00 89 16 160/79 (106) 97 02/13/19 02:00 21 169/85 Mechanical Ventilator 35 02/13/19 01:30 84 24 157/75 (102) 95 02/13/19 01:01 88 28 35 35 02/13/19 01:00 79 22 148/74 (98) 96 02/13/19 01:00 24 157/73 Mechanical Ventilator 35 02/13/19 00:41 139/82 02/13/19 00:30 83 22 156/75 (102) 96 02/13/19 00:00 98.9 82 20 133/80 (97) 97 02/13/19 00:00 Mechanical Ventilator Mechanical Ventilator Mechanical Ventilator 02/13/19 00:00 35 02/13/19 00:00 24 139/82 Mechanical Ventilator 35 02/13/19 00:00 96 02/12/19 23:42 29 128/65 Mechanical Ventilator 50.0 35 02/12/19 23:41 22 129/77 Mechanical Ventilator 35 02/12/19 23:33 72 24 98 Mechanical Ventilator 35 02/12/19 23:30 75 20 145/80 (101) 99 02/12/19 23:22 79 29 96 Mechanical Ventilator 35 02/12/19 23:22 74 29 35 35 02/12/19 23:00 24 128/65 35 02/12/19 23:00 73 22 137/72 (93) 96 02/12/19 22:30 72 22 141/77 (98) 96 02/12/19 22:00 72 21 132/75 (94) 96 02/12/19 22:00 22 141/77 Mechanical Ventilator 35 02/12/19 21:30 70 20 136/70 (92) 96 02/12/19 21:00 20 148/74 Mechanical Ventilator 35 02/12/19 21:00 72 20 148/74 (98) 97 02/12/19 20:39 75 25 35 35 02/12/19 20:30 75 22 137/77 (97) 98 02/12/19 20:23 24 128/65 Mechanical Ventilator 50.0 35 02/12/19 20:22 23 134/72 Mechanical Ventilator 35 02/12/19 20:01 68 128/65 02/12/19 20:00 97.9 70 23 134/72 (92) 96 02/12/19 20:00 23 134/72 Mechanical Ventilator 35 02/12/19 20:00 35 02/12/19 20:00 73 02/12/19 20:00 Mechanical Ventilator Mechanical Ventilator Mechanical Ventilator 02/12/19 19:30 68 24 128/65 (86) 98 02/12/19 19:14 68 24 98 Mechanical Ventilator 35 02/12/19 19:04 67 24 97 Mechanical Ventilator 35 02/12/19 19:03 67 24 35 35 02/12/19 19:00 66 24 133/70 (91) 98 02/12/19 19:00 24 133/70 Mechanical Ventilator 98 02/12/19 18:30 68 21 134/71 (92) 97 02/12/19 18:00 68 21 141/72 (95) 96 02/12/19 18:00 24 141/72 Mechanical Ventilator 35 02/12/19 17:52 97.9 02/12/19 17:30 67 23 139/70 (93) 95 02/12/19 17:30 24 128/65 Mechanical Ventilator 50.0 35 02/12/19 17:23 151/75 02/12/19 17:23 67 151/75 02/12/19 17:00 65 24 35 02/12/19 17:00 24 139/72 Mechanical Ventilator 35 02/12/19 17:00 67 21 149/67 (94) 95 02/12/19 16:30 66 24 154/65 (94) 94 02/12/19 16:00 97.9 67 24 151/75 (100) 99 02/12/19 16:00 24 149/67 Mechanical Ventilator 35 02/12/19 16:00 67 02/12/19 16:00 35 02/12/19 15:30 67 22 150/82 (104) 99 02/12/19 15:29 69 28 97 Mechanical Ventilator 35 02/12/19 15:28 69 28 35 02/12/19 15:15 68 28 97 Mechanical Ventilator 35 02/12/19 15:00 24 152/68 Mechanical Ventilator 35 02/12/19 15:00 66 22 149/67 (94) 95 02/12/19 14:30 67 24 154/65 (94) 95 02/12/19 14:21 24 152/66 Mechanical Ventilator 50.0 35 02/12/19 14:00 67 23 152/68 (96) 94 02/12/19 14:00 24 152/68 Mechanical Ventilator 35 02/12/19 13:30 68 24 152/69 (96) 94 02/12/19 13:00 78 24 35 02/12/19 13:00 24 157/75 Mechanical Ventilator 35 02/12/19 13:00 72 25 157/75 (102) 94 02/12/19 12:30 75 23 159/71 (100) 95 02/12/19 12:07 24 159/71 Mechanical Ventilator 35 02/12/19 12:00 35 02/12/19 12:00 98.6 76 23 152/66 (94) 94 02/12/19 12:00 79 02/12/19 11:45 77 23 166/74 (104) 94 02/12/19 11:38 30 136/62 Mechanical Ventilator 50.0 35 Intake and Output 02/12/19 02/13/19 19:00 07:00 Intake Total 2590.816 ml 2280.861 ml Output Total 495 ml Balance 2590.816 ml 1785.861 ml Free Water 100 ml 200 ml IV Total 2245.816 ml 1660.861 ml Tube Feeding 245 ml 420 ml Output Urine Total 495 ml # Voids 545 285 Laboratory Tests 02/12/19 16:15: Sodium Level 140, Potassium Level 4.5, Chloride Level 110H, Carbon Dioxide Level 16L, Anion Gap 14, Blood Urea Nitrogen 64H, Creatinine 3.9H, Estimat Glomerular Filtration Rate 15.9, Glucose Level 178H, Calcium Level 7.3L 02/12/19 16:20: Urine Color Pale yellow, Urine Appearance Slightly cloudy, Urine pH 5, Urine Specific Norman 1.015, Urine Protein 2+H, Urine Glucose (UA) Negative, Urine Ketones Negative, Urine Blood 2+H, Urine Nitrite Negative, Urine Bilirubin Negative, Urine Urobilinogen Normal, Urine Leukocyte Esterase Negative, Urine RBC 10-15H, Urine WBC 0-2, Urine Squamous Epithelial Cells Occasional, Urine Amorphous Sediment ModerateH, Urine Bacteria Few, Urine Random Sodium 44 02/13/19 04:00: Urine Eosinophils None seen 02/13/19 05:00: Sodium Level 142, Potassium Level 4.8, Chloride Level 111H, Carbon Dioxide Level 15L, Anion Gap 16H, Blood Urea Nitrogen 70H, Creatinine 3.8H, Estimat Glomerular Filtration Rate 16.4, Glucose Level 198H, Calcium Level 8.1L, White Blood Count 11.6#H, Red Blood Count 3.35L, Hemoglobin 9.4L, Hematocrit 28.7L, Mean Corpuscular Volume 86, Mean Corpuscular Hemoglobin 28.1, Mean Corpuscular Hemoglobin Concent 32.8, Red Cell Distribution Width 18.2H, Platelet Count 257, Mean Platelet Volume 6.3L, Neutrophils (%) (Auto) , Lymphocytes (%) (Auto) , Monocytes (%) (Auto) , Eosinophils (%) (Auto) , Basophils (%) (Auto) , Differential Total Cells Counted 100, Neutrophils % (Manual) 90H, Lymphocytes % (Manual) 7L, Monocytes % (Manual) 3, Eosinophils % (Manual) 0, Basophils % ( Manual) 0, Band Neutrophils 0, Platelet Estimate Adequate, Platelet Morphology Normal, Activated Partial Thromboplast Time 29, Uric Acid 6.9, Phosphorus Level 5.3H, Magnesium Level 2.9H, Total Bilirubin 0.3, Gamma Glutamyl Transpeptidase 473H, Aspartate Amino Transf (AST/SGOT) 49H, Alanine Aminotransferase (ALT/SGPT ) 74, Alkaline Phosphatase 249H, Total Creatine Kinase 171, Troponin I 3.192H, C -Reactive Protein, Quantitative 8.2H, Pro-B-Type Natriuretic Peptide 6068H, Total Protein 6.6#, Albumin 2.0L, Globulin 4.6, Albumin/Globulin Ratio 0.4L, Triglycerides Level 198H, Thyroid Stimulating Hormone (TSH) 0.460 02/13/19 08:23: Arterial Blood pH 7.278L, Arterial Blood Partial Pressure CO2 33.1L, Arterial Blood Partial Pressure O2 83.2, Arterial Blood HCO3 15.1*L, Arterial Blood Oxygen Saturation 94.1L, Arterial Blood Base Excess -10.6*L, Benny Test Positive Height (Feet): 6 Height (Inches): 0.00 Weight (Pounds): 211 General Appearance: no apparent distress Cardiovascular: normal rate Respiratory/Chest: decreased breath sounds Abdomen: distended Mike Mcdonald MD Feb 13, 2019 11:34
--- NOTE | 2019-02-13 12:01 | NUR ---
NURSE NOTES: Patient biting on ETT, restless, agitated, pulling on restraints and trying to get up. Increased Fentanyl to 240mcg/hr.
[2019-02-13] MEDS: Sennosides 8.6mg tab ORAL SCH (12:27)
[2019-02-13] MEDS: Sodium Citrate 30ml NG SCH ×3 (12:27→23:46)
[2019-02-13] MEDS: Bisacodyl EC 5mg tab ORAL PRN ×2 (12:28→20:34)
--- NOTE | 2019-02-13 13:01 | NUR ---
NURSE NOTES: updated of patient's current condition and blood sugar trend, received orders to check bedside blood sugar q2hrs.
--- NOTE | 2019-02-13 14:00 | NUR ---
NURSE NOTES: Patient still agitated, restless and trying to get out of bed despite Xanax, Versed and Max dose Fentanyl gtt. Turned and repositioned. Reoriented and used distraction but patient still agitated. Notified Dr. Meredith, received orders for STAT ABG.
[2019-02-13] MEDS: ALPRAZolam 0.5mg tab ORAL PRN (14:01)
--- NOTE | 2019-02-13 15:00 | NUR ---
NURSE NOTES: Notified Dr. Meredith of ABG results. Received orders to change vent setting TV to 600, give x1 bicarb IVP and change sedation to propofol. Notified of high triglyceride but MD still wants to give.
[2019-02-13] MEDS ORDERED: Sodium Bicarbonate 50ml Carp IV SCH (15:30)
--- NOTE | 2019-02-13 15:45 | NUR ---
NURSE NOTES: Received orders to d/c propofol and start Fentanyl and Versed drip. read back given and verified.
[2019-02-13] MEDS: fentaNYL Citrate 2,500 MCG in NS 200 ML IV SCH (16:25)
[2019-02-13] MEDS: Midazolam for drip 50 MG in NS 90 ML IV SCH (16:25)
--- NOTE | 2019-02-13 16:35 | NUR ---
NURSE NOTES: Propofol and Fentanyl waste witnessed in purple container by Suze Tang RN.
--- NOTE | 2019-02-13 16:35 | NUR ---
NURSE NOTES: Versed drip started @1mg/hr, will titrate to meet RASS -2, Fentanyl drip started @ 100mcg/hr.
--- NOTE | 2019-02-13 16:54 | NUR ---
NURSE NOTES: Received orders to d/c NS@100ml/hr and replace with 1/2NS with x3 sodium bicarb amps@100cc/hr.
--- NOTE | 2019-02-13 17:17 | NUR ---
NURSE NOTES: Per Dr. Mcdonald, João cath required for dialysis. Dr. Costa at bedside. Patient is sedated and unable to sign. MD consent required, see Dr. Costa's notes.
--- NOTE | 2019-02-13 17:52 | Consultation ---
History of Present Illness General Date patient seen: Feb 13, 2019 Chief Complaint: Chest Pain Present Illness HPI 58 year old male with history of HIV, CAD, presented with chest pain and respiratory decompensation. Was admitted for care and management. Currently in ICU intubated and in critical condition. Leukocytosis, anemia, hypoxia, acidosis. Surgery called to evaluate and assist with care. patient seen, chart reviewed, patient examined. On exam patient not alert with sedation on vent. Hypoxic and acidosis. Requires HD and needs temp HD line. Allergies: Coded Allergies: No Known Allergies (Unverified , 02/05/13) Medication History Scheduled Acetaminophen* (Acetaminophen Extra Strength*), 500 MG ORAL Q6H, (Reported) Aspirin Ec* (Aspirin Ec*), 81 MG ORAL DAILY Biotin (Biotin), 5,000 MCG PO DAILY, (Reported) Duloxetine Hcl* (Cymbalta*), 90 MG ORAL DAILY, (Reported) Etravirine* (Intelence*), 400 MG ORAL DAILY, (Reported) Ezetimibe (Zetia*), 10 MG ORAL BEDTIME, (Reported) Ferrous Sulfate* (Ferrous Sulfate*), 325 MG ORAL THREE TIMES A DAY, (Reported) Folic Acid (Folic Acid), 1 MG PO BID, (Reported) Isosorbide Mononitrate (Isosorbide Mononitrate Er), 30 MG PO DAILY, (Reported) Lamotrigine (Lamotrigine), 200 MG PO QHS, (Reported) Losartan Potassium* (Losartan Potassium*), 100 MG ORAL DAILY, (Reported) Metoprolol Tartrate* (Metoprolol Tartrate*), 100 MG ORAL Q12HR Nateglinide (Starlix), 120 MG ORAL THREE TIMES A DAY, (Reported) Raltegravir (Isentress), 400 MG ORAL EVERY 12 HOURS, (Reported) Sitagliptin* (Januvia*), 100 MG ORAL DAILY, (Reported) Tenofovir Disoproxil Fumarate* (Viread*), 300 MG ORAL DAILY, (Reported) Vitamin B Complex (Vitamin B Complex), 1 EACH PO DAILY, (Reported) Vitamin D (Vitamin D3), 400 UNITS ORAL DAILY, (Reported) Scheduled PRN Butalb/Acetaminophen/Caffeine (Jwxsdp-Beaqkmhy-Ioqv 50-325-40), 1 EACH PO BID PRN for For Pain, (Reported) Cetirizine Hcl* (Zyrtec*), 10 MG ORAL DAILY PRN for Itching, (Reported) Docusate Sodium (Docusate Sodium), 100 MG ORAL TWICE A DAY PRN for Constipation, (Reported) Miscellaneous Medications Guaifenesin (Mucinex), 100 MG PO, (Reported) Discontinued Medications Amlodipine Besylate (Norvasc), 10 MG ORAL DAILY Discontinued Reason: Pt stopped taking med Atorvastatin Calcium* (Lipitor*), 10 MG ORAL BEDTIME Discontinued Reason: Medication dose changed Biotin (Biotin), 5,000 MCG PO, (Reported) Discontinued Reason: Medication dose changed Cholecalciferol (Vitamin D3)* (Vitamin D*), 1,000 UNITS ORAL DAILY, (Reported) Discontinued Reason: Pt stopped taking med Etravirine* (Intelence*), 400 MG ORAL DAILY, (Reported) Discontinued Reason: Medication dose changed Guaifenesin/Dextromethorphan (Mucinex Dm Er 600-30 Mg Tablet), 1 EACH PO, ( Reported) Discontinued Reason: Medication dose changed Hydralazine Hcl* (Hydralazine Hcl*), 25 MG ORAL Q8HR Discontinued Reason: Pt stopped taking med Magnesium Gluconate (Magnesium Gluconate), 500 GM PO DAILY, (Reported) Discontinued Reason: Pt stopped taking med Raltegravir (Isentress), 400 MG ORAL BID, (Reported) Discontinued Reason: Medication dose changed Patient History Limited by: medical condition History Provided By: Medical Record, PMD Healthcare decision maker Resuscitation status Full Code Advanced Directive on File Past Medical/Surgical History Past Medical/Surgical History: (1) Psoriasis (2) extensive ischemic cerebrovasculat disease, multple old lacunar strokes. (3) Diabetic nephropathy (4) Hypertensive encephalopathy (5) Hyponatremia (6) Foot ulcer (7) Abnormal EKG (8) Multiple lacunar infarcts (9) Dizziness of unknown cause (10) acute small R pontomedullary and left cerebellar peduncle strokes. (11) r/o cerebellar stroke (12) acute ischemic [employer] stroke, bylateral (13) Bylateral [employer] severe stenosis (14) Sepsis (15) AIDS (16) Anemia (17) Anxiety (18) Diabetes (19) Hypertension (20) HIV disease (21) CKD (chronic kidney disease) (22) History of stroke (23) NSTEMI (non-ST elevated myocardial infarction) (24) MDD (major depressive disorder), recurrent episode, moderate (25) Respiratory distress (26) Hypoxia (27) HIV (human immunodeficiency virus infection) (28) Acute coronary syndrome (29) Elevated troponin (30) Pneumonia (31) Acute hypoxemic respiratory failure (32) Endotracheally intubated (33) ISH (acute kidney injury) (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 (35) Malignant hypertension (36) Anemia Review of Systems ROS Narrative cannot obtain given medical condition Physical Exam General Appearance: moderate distress Lines, tubes and drains: endotracheal tube HEENT: other Neck: normal inspection Respiratory/Chest: decreased breath sounds, on vent Cardiovascular/Chest: tachycardia, other Abdomen: soft, no organomegaly, distended Extremities: moderate edema Skin Exam: warm/dry Neurologic: unresponsiveness Last 24 Hour Vital Signs Date Time Temp Pulse Resp B/P (MAP) Pulse Ox O2 Delivery O2 Flow Rate FiO2 02/13/19 17:18 68 24 40 02/13/19 17:00 24 Mechanical Ventilator 40 02/13/19 17:00 26 Mechanical Ventilator 40 02/13/19 16:25 24 Mechanical Ventilator 50.0 40 02/13/19 16:25 24 Mechanical Ventilator 50.0 40 02/13/19 16:00 Mechanical Ventilator Mechanical Ventilator Mechanical Ventilator 02/13/19 16:00 40 02/13/19 15:28 24 194/95 Mechanical Ventilator 40 02/13/19 15:13 88 24 100 Mechanical Ventilator 40 02/13/19 15:12 81 24 40 02/13/19 15:04 81 24 100 Mechanical Ventilator 40 02/13/19 15:00 85 20 206/95 (132) 93 02/13/19 14:30 81 20 200/86 (124) 93 02/13/19 14:01 182/82 02/13/19 14:00 26 Mechanical Ventilator 40 02/13/19 14:00 91 20 210/88 (128) 93 02/13/19 13:30 82 22 175/73 (107) 96 02/13/19 13:15 74 24 40 02/13/19 13:00 26 Mechanical Ventilator 40 02/13/19 13:00 75 20 160/69 (99) 93 02/13/19 12:31 182/82 02/13/19 12:30 78 20 173/70 (104) 93 02/13/19 12:22 182/82 02/13/19 12:00 91 02/13/19 12:00 26 Endotracheal Tube 40 02/13/19 12:00 24 Mechanical Ventilator 40 02/13/19 12:00 26 Endotracheal Tube 40 02/13/19 12:00 99.6 80 20 132/64 (86) 93 02/13/19 12:00 Mechanical Ventilator Mechanical Ventilator Mechanical Ventilator 02/13/19 12:00 40 02/13/19 11:40 95 31 96 Mechanical Ventilator 40 02/13/19 11:30 95 29 95 Mechanical Ventilator 40 02/13/19 11:20 95 30 40 02/13/19 11:00 78 20 169/78 (108) 93 02/13/19 11:00 26 Mechanical Ventilator 40 02/13/19 10:32 99.3 02/13/19 10:30 24 170/81 Mechanical Ventilator 40 02/13/19 10:30 83 20 188/85 (119) 97 02/13/19 10:02 24 Mechanical Ventilator 50.0 35 02/13/19 10:01 24 155/75 Mechanical Ventilator 50.0 40 02/13/19 10:00 74 24 170/81 (110) 97 02/13/19 10:00 24 170/81 Endotracheal Tube 40 02/13/19 09:30 71 21 145/78 (100) 97 02/13/19 09:00 70 20 150/68 (95) 97 02/13/19 09:00 24 145/67 Endotracheal Tube 40 02/13/19 08:31 75 25 35 02/13/19 08:30 75 20 145/67 (93) 93 02/13/19 08:29 80 132/75 02/13/19 08:28 80 132/75 02/13/19 08:00 81 02/13/19 08:00 75 23 139/66 (90) 96 02/13/19 08:00 40 02/13/19 08:00 22 136/70 Mechanical Ventilator 40 02/13/19 08:00 Mechanical Ventilator Mechanical Ventilator Mechanical Ventilator 02/13/19 07:30 97.8 75 20 136/70 (92) 93 02/13/19 07:00 22 132/75 Mechanical Ventilator 35 02/13/19 07:00 80 20 132/64 (86) 93 02/13/19 06:41 88 24 98 Mechanical Ventilator 35 02/13/19 06:39 78 27 35 02/13/19 06:35 78 24 96 Mechanical Ventilator 35 02/13/19 06:01 27 140/70 35 02/13/19 06:00 81 27 145/75 (98) 94 02/13/19 05:37 149/75 02/13/19 05:25 86 27 35 35 02/13/19 05:00 87 21 140/70 (93) 94 02/13/19 05:00 25 149/75 Mechanical Ventilator 35 02/13/19 04:00 Mechanical Ventilator Mechanical Ventilator Mechanical Ventilator 02/13/19 04:00 35 02/13/19 04:00 20 146/112 02/13/19 04:00 99.3 97 16 146/112 (123) 93 02/13/19 04:00 106 02/13/19 03:31 21 164/75 Mechanical Ventilator 35 02/13/19 03:27 78 24 98 Mechanical Ventilator 35 02/13/19 03:19 93 26 96 Mechanical Ventilator 35 02/13/19 03:18 93 26 35 35 02/13/19 03:00 24 181/101 Mechanical Ventilator 35 02/13/19 03:00 94 24 164/75 (104) 93 02/13/19 02:30 93 22 177/84 (115) 95 02/13/19 02:00 89 16 160/79 (106) 97 02/13/19 02:00 21 169/85 Mechanical Ventilator 35 02/13/19 01:30 84 24 157/75 (102) 95 02/13/19 01:01 88 28 35 35 02/13/19 01:00 79 22 148/74 (98) 96 02/13/19 01:00 24 157/73 Mechanical Ventilator 35 02/13/19 00:41 139/82 02/13/19 00:30 83 22 156/75 (102) 96 02/13/19 00:00 98.9 82 20 133/80 (97) 97 02/13/19 00:00 Mechanical Ventilator Mechanical Ventilator Mechanical Ventilator 02/13/19 00:00 35 02/13/19 00:00 24 139/82 Mechanical Ventilator 35 02/13/19 00:00 96 02/12/19 23:42 29 128/65 Mechanical Ventilator 50.0 35 02/12/19 23:41 22 129/77 Mechanical Ventilator 35 02/12/19 23:33 72 24 98 Mechanical Ventilator 35 02/12/19 23:30 75 20 145/80 (101) 99 02/12/19 23:22 79 29 96 Mechanical Ventilator 35 02/12/19 23:22 74 29 35 35 02/12/19 23:00 24 128/65 35 02/12/19 23:00 73 22 137/72 (93) 96 02/12/19 22:30 72 22 141/77 (98) 96 02/12/19 22:00 72 21 132/75 (94) 96 02/12/19 22:00 22 141/77 Mechanical Ventilator 35 02/12/19 21:30 70 20 136/70 (92) 96 02/12/19 21:00 20 148/74 Mechanical Ventilator 35 02/12/19 21:00 72 20 148/74 (98) 97 02/12/19 20:39 75 25 35 35 02/12/19 20:30 75 22 137/77 (97) 98 02/12/19 20:23 24 128/65 Mechanical Ventilator 50.0 35 02/12/19 20:22 23 134/72 Mechanical Ventilator 35 02/12/19 20:01 68 128/65 02/12/19 20:00 97.9 70 23 134/72 (92) 96 02/12/19 20:00 23 134/72 Mechanical Ventilator 35 02/12/19 20:00 35 02/12/19 20:00 73 02/12/19 20:00 Mechanical Ventilator Mechanical Ventilator Mechanical Ventilator 02/12/19 19:30 68 24 128/65 (86) 98 02/12/19 19:14 68 24 98 Mechanical Ventilator 35 02/12/19 19:04 67 24 97 Mechanical Ventilator 35 02/12/19 19:03 67 24 35 35 02/12/19 19:00 66 24 133/70 (91) 98 02/12/19 19:00 24 133/70 Mechanical Ventilator 98 02/12/19 18:30 68 21 134/71 (92) 97 02/12/19 18:00 68 21 141/72 (95) 96 02/12/19 18:00 24 141/72 Mechanical Ventilator 35 02/12/19 17:52 97.9 Intake and Output 02/12/19 02/13/19 19:00 07:00 Intake Total 2590.816 ml 2280.861 ml Output Total 495 ml Balance 2590.816 ml 1785.861 ml Free Water 100 ml 200 ml IV Total 2245.816 ml 1660.861 ml Tube Feeding 245 ml 420 ml Output Urine Total 495 ml # Voids 545 285 Laboratory Tests Test 02/13/19 04:00 02/13/19 05:00 02/13/19 08:23 02/13/19 14:10 Urine Eosinophils None seen (NONE SEEN) White Blood Count 11.6 K/UL (4.8-10.8) #H Red Blood Count 3.35 M/UL (4.70-6.10) L Hemoglobin 9.4 G/DL (14.2-18.0) L Hematocrit 28.7 % (42.0-52.0) L Mean Corpuscular Volume 86 FL (80-99) Mean Corpuscular Hemoglobin 28.1 PG (27.0-31.0) Mean Corpuscular Hemoglobin Concent 32.8 G/DL (32.0-36.0) Red Cell Distribution Width 18.2 % (11.6-14.8) H Platelet Count 257 K/UL (150-450) Mean Platelet Volume 6.3 FL (6.5-10.1) L Neutrophils (%) (Auto) % (45.0-75.0) Lymphocytes (%) (Auto) % (20.0-45.0) Monocytes (%) (Auto) % (1.0-10.0) Eosinophils (%) (Auto) % (0.0-3.0) Basophils (%) (Auto) % (0.0-2.0) Differential Total Cells Counted 100 Neutrophils % (Manual) 90 % (45-75) H Lymphocytes % (Manual) 7 % (20-45) L Monocytes % (Manual) 3 % (1-10) Eosinophils % (Manual) 0 % (0-3) Basophils % (Manual) 0 % (0-2) Band Neutrophils 0 % (0-8) Platelet Estimate Adequate Platelet Morphology Normal Activated Partial Thromboplast Time 29 SEC (23-33) Sodium Level 142 MMOL/L (136-145) Potassium Level 4.8 MMOL/L (3.5-5.1) Chloride Level 111 MMOL/L (98-107) H Carbon Dioxide Level 15 MMOL/L (21-32) L Anion Gap 16 mmol/L (5-15) H Blood Urea Nitrogen 70 mg/dL (7-18) H Creatinine 3.8 MG/DL (0.55-1.30) H Estimat Glomerular Filtration Rate 16.4 mL/min (>60) Glucose Level 198 MG/DL (74-106) H Uric Acid 6.9 MG/DL (2.6-7.2) Calcium Level 8.1 MG/DL (8.5-10.1) L Phosphorus Level 5.3 MG/DL (2.5-4.9) H Magnesium Level 2.9 MG/DL (1.8-2.4) H Total Bilirubin 0.3 MG/DL (0.2-1.0) Gamma Glutamyl Transpeptidase 473 U/L (5-85) H Aspartate Amino Transf (AST/SGOT) 49 U/L (15-37) H Alanine Aminotransferase (ALT/SGPT) 74 U/L (12-78) Alkaline Phosphatase 249 U/L (46-116) H Total Creatine Kinase 171 U/L (26-308) Troponin I 3.192 ng/mL (0.000-0.056) C-Reactive Protein, Quantitative 8.2 mg/dL (0.00-0.90) H Pro-B-Type Natriuretic Peptide 6068 pg/mL (0-125) H Total Protein 6.6 G/DL (6.4-8.2) # Albumin 2.0 G/DL (3.4-5.0) L Globulin 4.6 g/dL Albumin/Globulin Ratio 0.4 (1.0-2.7) L Triglycerides Level 198 MG/DL (30-150) H Thyroid Stimulating Hormone (TSH) 0.460 uiU/mL (0.358-3.740) Arterial Blood pH 7.278 (7.350-7.450) 7.162 (7.350-7.450) Arterial Blood Partial Pressure CO2 33.1 mmHg (35.0-45.0) L 42.8 mmHg (35.0-45.0) Arterial Blood Partial Pressure O2 83.2 mmHg (75.0-100.0) 81.1 mmHg (75.0-100.0) Arterial Blood HCO3 15.1 mmol/L (22.0-26.0) *L 15.0 mmol/L (22.0-26.0) *L Arterial Blood Oxygen Saturation 94.1 % (95-100) L 92.4 % (95-100) L Arterial Blood Base Excess -10.6 (-2-2) *L -13.0 (-2-2) *L Benny Test Positive Positive Test 02/13/19 16:10 Arterial Blood pH 7.279 (7.350-7.450) Arterial Blood Partial Pressure CO2 33.7 mmHg (35.0-45.0) L Arterial Blood Partial Pressure O2 71.4 mmHg (75.0-100.0) L Arterial Blood HCO3 15.4 mmol/L (22.0-26.0) *L Arterial Blood Oxygen Saturation 92.2 % (95-100) L Arterial Blood Base Excess -10.3 (-2-2) *L Benny Test Positive Height (Feet): 6 Height (Inches): 0.00 Weight (Pounds): 211 Medications Current Medications Medications (Trade) Dose Ordered Sig/Marquis Route PRN Reason Start Time Stop Time Status Last Admin Dose Admin Acetaminophen (Tylenol) 650 mg Q4H PRN ORAL Mild Pain (Pain Scale 1-3) 02/07/19 11:15 03/08/19 17:29 02/07/19 23:01 Acetaminophen/ Butalbital/ Caffeine (Fioricet) 1 tab Q8H PRN ORAL For Headache 02/08/19 17:15 03/10/19 17:14 Albuterol/ Ipratropium (Albuterol/ Ipratropium) 3 ml Q4HRT HHN 02/09/19 15:00 02/14/19 14:59 02/13/19 15:12 Alprazolam (Xanax) 0.5 mg Q6H PRN ORAL For Anxiety 02/08/19 20:15 02/15/19 20:14 02/13/19 14:01 Amlodipine Besylate (Norvasc) 10 mg DAILY NG 02/12/19 16:00 03/14/19 15:59 02/13/19 08:29 Aspirin (Ecotrin) 81 mg DAILY ORAL 02/08/19 09:00 03/09/19 08:59 02/12/19 09:39 Atorvastatin Calcium (Lipitor) 40 mg QHS ORAL 02/08/19 21:00 03/10/19 20:59 02/12/19 20:03 Bisacodyl (Dulcolax) 5 mg DAILYPRN PRN ORAL Constipation 02/08/19 17:15 03/10/19 17:14 02/13/19 12:28 Chlorhexidine Gluconate (Jessy-Hex 2%) 1 applic DAILY@2000 TOPIC 02/13/19 20:00 03/15/19 19:59 Dextrose (Dextrose 50%) 25 ml Q30M PRN IV HYPOGLYCEMIA 02/11/19 17:15 03/13/19 17:14 Dextrose (Dextrose 50%) 50 ml Q30M PRN IV HYPOGLYCEMIA 02/11/19 17:15 03/13/19 17:14 Docusate Sodium (Colace) 100 mg TID GT 02/12/19 18:00 03/12/19 08:59 02/13/19 12:12 Enoxaparin Sodium (Lovenox) 40 mg Q24H SUBQ 02/07/19 21:00 03/08/19 20:59 02/12/19 20:03 Fentanyl Citrate 2500 mcg/Sodium Chloride 250 ml @ 0 mls/hr Q24H IV 02/13/19 15:45 02/20/19 15:44 02/13/19 16:25 Fluconazole/ Sodium Chloride 100 ml @ 100 mls/hr Q24H IV 02/09/19 18:00 02/16/19 17:59 02/12/19 17:24 Guaifenesin (Mucinex ER) 600 mg TWICE A DAY ORAL 02/07/19 18:00 03/09/19 08:59 02/13/19 08:27 Heparin Sodium/ Sodium Chloride (Heparin 1000 units/500ml Premix) 1,000 unit ONCE PRN IV picc line placement 02/13/19 10:00 02/15/19 09:59 Hydralazine HCl (Apresoline) 25 mg Q4H PRN NG SBP > 160mmHg 02/12/19 16:00 03/08/19 11:14 Hydralazine HCl (Apresoline) 37.5 mg Q6HR NG 02/13/19 12:00 03/14/19 17:59 02/13/19 14:01 Insulin Human Regular (NovoLIN R) 5 units PRN PRN IV BS 200-299 02/11/19 17:15 03/13/19 17:14 02/13/19 03:06 Insulin Human Regular (NovoLIN R) 10 units PRN PRN IV BS=>300 02/11/19 17:15 03/13/19 17:14 02/13/19 02:05 Insulin Human Regular 100 units/ Sodium Chloride 100 ml @ 0 mls/hr Q24H IV 02/12/19 10:42 03/14/19 10:41 02/13/19 12:41 Isosorbide Dinitrate (Isordil) 10 mg Q6HR NG 02/13/19 13:00 03/15/19 12:59 02/13/19 12:31 Lansoprazole (Prevacid) 30 mg BID NG 02/12/19 18:00 03/14/19 17:59 02/13/19 08:27 Lidocaine HCl (Xylocaine 1% 30ml) 30 ml ONCE PRN INJ picc line placement 02/13/19 10:00 02/15/19 09:59 Methylprednisolone Sodium Succinate (Solu-MEDROL) 30 mg EVERY 12 HOURS IVP 02/13/19 21:00 03/12/19 20:59 Metoprolol Tartrate (Lopressor) 100 mg Q12HR ORAL 02/07/19 21:00 03/08/19 20:59 02/13/19 08:28 Midazolam HCl (Versed 2mg/2ml vial) 1 mg Q2H PRN IVP Agitation 02/13/19 08:45 03/15/19 08:44 02/13/19 13:46 Midazolam HCl 50 mg/Sodium Chloride 100 ml @ 0 mls/hr Q24H IV 02/13/19 15:45 02/20/19 15:44 02/13/19 16:25 Miscellaneous Medication (Insulin Rate Change) 1 ea PRN PRN MISC Per rx protocol 02/11/19 17:15 03/13/19 17:14 02/13/19 06:56 Nitroglycerin (Ntg) 0.4 mg Q5M PRN SL Prn Chest Pain 02/07/19 11:00 03/08/19 17:29 02/08/19 07:42 Ondansetron HCl (Zofran) 4 mg Q6H PRN IVP Nausea & Vomiting 02/07/19 11:15 03/08/19 11:14 02/09/19 00:58 Patient Own Medication (Patient's Own Med) 1 ea BID ORAL 02/07/19 18:00 03/09/19 17:59 02/13/19 08:27 Patient Own Medication (Patient's Own Med) 1 ea Q72H ORAL 02/16/19 09:00 03/15/19 08:59 Patient Own Medication (Patient's Own Med) 2 ea DAILY ORAL 02/08/19 09:00 03/10/19 08:59 02/13/19 08:27 Piperacillin Sod/ Tazobactam Sod 3.375 gm/Sodium Chloride 110 ml @ 27.5 mls/hr Q12HR@0600,1800 IVPB 02/11/19 18:00 02/18/19 17:59 02/13/19 05:37 Polyethylene Glycol (Miralax) 17 gm BEDTIME ORAL 02/08/19 21:00 03/10/19 20:59 02/12/19 20:03 Sennosides (Senokot) 8.6 mg DAILY ORAL 02/13/19 12:00 03/15/19 11:59 02/13/19 12:27 Sodium Bicarbonate 150 ml/Sodium Chloride 1,150 ml @ 100 mls/hr [id number] IV 02/13/19 18:00 03/15/19 17:59 Sodium Citrate (Bicitra) 30 ml EVERY 6 HOURS NG 02/13/19 12:15 03/15/19 12:14 02/13/19 12:27 Trimethoprim/ Sulfamethoxazole 25 ml/Dextrose 575 ml @ 383.333 mls/hr Q12HR@0000,1200 IV 02/11/19 12:00 02/18/19 11:59 02/13/19 12:14 Vancomycin HCl (Vanco rx to dose) 1 ea DAILY PRN MISC . 02/10/19 19:45 03/12/19 19:44 Assessment/Plan Problem List: (1) Hypoxia Assessment & Plan: Extensive bilateral upper lobe infiltrates likely inflammatory/infectious. Correlate clinically. Tuberculosis is not excludable. Bilateral pleural effusions. Endotracheal tube and nasogastric tube in good position Atherosclerotic vascular disease ICD Codes: R09.02 - Hypoxemia SNOMED: 941783084, [id number], [id number] (2) Respiratory distress Assessment & Plan: AM CXR pulm input appreciated ICD Codes: R06.03 - Acute respiratory distress SNOMED: 786998018 (3) Sepsis Assessment & Plan: Sepsis with tachycardia, leukocytosis, abnormal labs, respiratory distress on vent support via ET tube, acidosis. Cont IV abx CXR noted appreciate ICU team care abnormal lft's US noted will need temp HD line as will benefit from HD will cont to follow with recs trend labs Rx as written ICD Codes: A41.9 - Sepsis, unspecified organism SNOMED: 75223573 Moiz Costa Feb 13, 2019 17:52
--- NOTE | 2019-02-13 17:58 | Operative Note - PDOC ---
Operative Note Operative Note Chief Complaint: RESPIRATORY FAILURE Pre-op Diagnosis: respiratory insufficiency, hypoxia, acidosis, renal insufficiency Procedure: left femoral temporary Hemodialysis catheter insertion Post-op Diagnosis: same as pre-op Surgeon: Moiz Costa MD Anesthesia: moderate sedation, other Specimen: none Complications: none Condition: stable Estimated Blood Loss: none Drains: none Implant(s) used?: No Indications for Procedure 58M with respiratory insufficiency, acidosis, renal insufficiency. Will require HD. needs temp HD line. See note. Patient currently unable to consent given medical condition. does not have POA. full code and procedure medically necessary. discussed with medical and ICU team who placed consult. Description of Procedure patient made comfortable at bedside in supine position. left groin prepped and draped in standard surgical fashion. patient on sedation fentanyl gtt currently and unresponsive. anatomic landmarks identified. left femoral vein obtained with finder needle and good venous flow identified. guidewire placed over needle and needle removed. small skin incision made and dilators used. 13f 30cm temporary HD catheter placed without complication. all ports flushed and aspirated well. line sutured in place. dressings applied. patient tolerated well. line okay for HD. thank you Moiz Costa Feb 13, 2019 17:58
[2019-02-13] MEDS: Sodium Bicarbonate 150 ML in 1/2 NS 1000ml 1,000 ML IV SCH (18:00)
--- NOTE | 2019-02-13 18:00 | NUR ---
NURSE NOTES: João cath inserted in left femoral, titrated versed to 4mg/hr to meet RASS -2. Changed IVF per Dr. Meredith. On going insulin drip at 7 units/hr. Discontinued propofol wasted with witness, Suze Tang RN.
--- NOTE | 2019-02-13 18:03 | Hematology/Onc Progress Note ---
Assessment/Plan Assessment/Plan ASSESSMENT AND RECOMMENDATIONS # Anemia of chronic disease due to underlying chronic medical issues, multifactorial --> Anemia workup has been reviewed. Ferritin 182 --> No evidence of hemolysis is noted, peripheral smear has been reviewed. --> Hgb goal >7. Transfuse prn. --> Epogen or iron at this time is not particularly indicated --> Medications have been reviewed --> low threshold for gi evaluation in case has occult + --> bone marrow biopsy is not indicated given the other more likely causes --> Blood tx: 1 unit on 02/10/19, --> Hgb trend: 02/24-->8.2-->9.4 # Thrombocytopenia - potential causes multifactorial, likely related to HIV status --> Hep panel pending and HIV confirmed positive --> US abd to evaluate for cirrhosis and hsm ordered --> Peripheral smear ordered to evaluate for blasts /schistocytes --> abx and other meds have been reviewed --> ok for ppx if plt >50k w/ either heparin or lovenox --> Transfuse if Plt < 20k and fever, or if Plt < 10k without fever --> Plt trend: 153-->257 # Multilobar pneumonia in patient with HIV. Recs per ID. --> Broad sp atbx started. Continue Zosyn, Vancomycin and Azithromycin --> Droplet precaution # Hypoxemic respiratory failure. Pulm is following, appreciate recs. --> Bipap as needed, transition to O2 via NC when able --> Due to pneumonia, on abx # Chest pain. 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 --> Trend troponin x3 --> NGT prn # HIV. --> Continue HARRT --> VL is undetectable per patient report. # HTN --> Resume home medication # DVT and GI ppx The time the note is entered does not reflect the time the patient was examined. I greatly appreciate the consultation. Subjective Allergies: Coded Allergies: No Known Allergies (Unverified , 02/05/13) Subjective 02/11: Hgb yesterday was 7.6, s/p 1 unit prbc. Current hgb at 8.2. Pt attempted to pull out tubes per nursing team, soft restraints applied. 02/13: Pt in ICU and intubated. Pt currently sedated. Current hgb 9.4. Objective Objective Current Medications Medications (Trade) Dose Ordered Sig/Marquis Route PRN Reason Start Time Stop Time Status Last Admin Dose Admin Acetaminophen (Tylenol) 650 mg Q4H PRN ORAL Mild Pain (Pain Scale 1-3) 02/07/19 11:15 03/08/19 17:29 02/07/19 23:01 Acetaminophen/ Butalbital/ Caffeine (Fioricet) 1 tab Q8H PRN ORAL For Headache 02/08/19 17:15 03/10/19 17:14 Albuterol/ Ipratropium (Albuterol/ Ipratropium) 3 ml Q4HRT HHN 02/09/19 15:00 02/14/19 14:59 02/13/19 15:12 Alprazolam (Xanax) 0.5 mg Q6H PRN ORAL For Anxiety 02/08/19 20:15 02/15/19 20:14 02/13/19 14:01 Amlodipine Besylate (Norvasc) 10 mg DAILY NG 02/12/19 16:00 03/14/19 15:59 02/13/19 08:29 Aspirin (Ecotrin) 81 mg DAILY ORAL 02/08/19 09:00 03/09/19 08:59 02/12/19 09:39 Atorvastatin Calcium (Lipitor) 40 mg QHS ORAL 02/08/19 21:00 03/10/19 20:59 02/12/19 20:03 Bisacodyl (Dulcolax) 5 mg DAILYPRN PRN ORAL Constipation 02/08/19 17:15 03/10/19 17:14 02/13/19 12:28 Chlorhexidine Gluconate (Jessy-Hex 2%) 1 applic DAILY@2000 TOPIC 02/13/19 20:00 03/15/19 19:59 Dextrose (Dextrose 50%) 25 ml Q30M PRN IV HYPOGLYCEMIA 02/11/19 17:15 03/13/19 17:14 Dextrose (Dextrose 50%) 50 ml Q30M PRN IV HYPOGLYCEMIA 02/11/19 17:15 03/13/19 17:14 Docusate Sodium (Colace) 100 mg TID GT 02/12/19 18:00 03/12/19 08:59 02/13/19 12:12 Enoxaparin Sodium (Lovenox) 40 mg Q24H SUBQ 02/07/19 21:00 03/08/19 20:59 02/12/19 20:03 Fentanyl Citrate 2500 mcg/Sodium Chloride 250 ml @ 0 mls/hr Q24H IV 02/13/19 15:45 02/20/19 15:44 02/13/19 16:25 Fluconazole/ Sodium Chloride 100 ml @ 100 mls/hr Q24H IV 02/09/19 18:00 02/16/19 17:59 02/12/19 17:24 Guaifenesin (Mucinex ER) 600 mg TWICE A DAY ORAL 02/07/19 18:00 03/09/19 08:59 02/13/19 08:27 Heparin Sodium/ Sodium Chloride (Heparin 1000 units/500ml Premix) 1,000 unit ONCE PRN IV picc line placement 02/13/19 10:00 02/15/19 09:59 Hydralazine HCl (Apresoline) 25 mg Q4H PRN NG SBP > 160mmHg 02/12/19 16:00 03/08/19 11:14 Hydralazine HCl (Apresoline) 37.5 mg Q6HR NG 02/13/19 12:00 03/14/19 17:59 02/13/19 14:01 Insulin Human Regular (NovoLIN R) 5 units PRN PRN IV BS 200-299 02/11/19 17:15 03/13/19 17:14 02/13/19 03:06 Insulin Human Regular (NovoLIN R) 10 units PRN PRN IV BS=>300 02/11/19 17:15 03/13/19 17:14 02/13/19 02:05 Insulin Human Regular 100 units/ Sodium Chloride 100 ml @ 0 mls/hr Q24H IV 02/12/19 10:42 03/14/19 10:41 02/13/19 12:41 Isosorbide Dinitrate (Isordil) 10 mg Q6HR NG 02/13/19 13:00 03/15/19 12:59 02/13/19 12:31 Lansoprazole (Prevacid) 30 mg BID NG 02/12/19 18:00 03/14/19 17:59 02/13/19 08:27 Lidocaine HCl (Xylocaine 1% 30ml) 30 ml ONCE PRN INJ picc line placement 02/13/19 10:00 02/15/19 09:59 Methylprednisolone Sodium Succinate (Solu-MEDROL) 30 mg EVERY 12 HOURS IVP 02/13/19 21:00 03/12/19 20:59 Metoprolol Tartrate (Lopressor) 100 mg Q12HR ORAL 02/07/19 21:00 03/08/19 20:59 02/13/19 08:28 Midazolam HCl (Versed 2mg/2ml vial) 1 mg Q2H PRN IVP Agitation 02/13/19 08:45 03/15/19 08:44 02/13/19 13:46 Midazolam HCl 50 mg/Sodium Chloride 100 ml @ 0 mls/hr Q24H IV 02/13/19 15:45 02/20/19 15:44 02/13/19 16:25 Miscellaneous Medication (Insulin Rate Change) 1 ea PRN PRN MISC Per rx protocol 02/11/19 17:15 03/13/19 17:14 02/13/19 06:56 Nitroglycerin (Ntg) 0.4 mg Q5M PRN SL Prn Chest Pain 02/07/19 11:00 03/08/19 17:29 02/08/19 07:42 Ondansetron HCl (Zofran) 4 mg Q6H PRN IVP Nausea & Vomiting 02/07/19 11:15 03/08/19 11:14 02/09/19 00:58 Patient Own Medication (Patient's Own Med) 1 ea BID ORAL 02/07/19 18:00 03/09/19 17:59 02/13/19 08:27 Patient Own Medication (Patient's Own Med) 1 ea Q72H ORAL 02/16/19 09:00 03/15/19 08:59 Patient Own Medication (Patient's Own Med) 2 ea DAILY ORAL 02/08/19 09:00 03/10/19 08:59 02/13/19 08:27 Piperacillin Sod/ Tazobactam Sod 3.375 gm/Sodium Chloride 110 ml @ 27.5 mls/hr Q12HR@0600,1800 IVPB 02/11/19 18:00 02/18/19 17:59 02/13/19 05:37 Polyethylene Glycol (Miralax) 17 gm BEDTIME ORAL 02/08/19 21:00 03/10/19 20:59 02/12/19 20:03 Sennosides (Senokot) 8.6 mg DAILY ORAL 02/13/19 12:00 03/15/19 11:59 02/13/19 12:27 Sodium Bicarbonate 150 ml/Sodium Chloride 1,150 ml @ 100 mls/hr [id number] IV 02/13/19 18:00 03/15/19 17:59 Sodium Citrate (Bicitra) 30 ml EVERY 6 HOURS NG 02/13/19 12:15 03/15/19 12:14 02/13/19 12:27 Trimethoprim/ Sulfamethoxazole 25 ml/Dextrose 575 ml @ 383.333 mls/hr Q12HR@0000,1200 IV 02/11/19 12:00 02/18/19 11:59 02/13/19 12:14 Vancomycin HCl (Vanco rx to dose) 1 ea DAILY PRN MISC . 02/10/19 19:45 03/12/19 19:44 Last 24 Hour Vital Signs Date Time Temp Pulse Resp B/P (MAP) Pulse Ox O2 Delivery O2 Flow Rate FiO2 02/13/19 17:18 68 24 40 02/13/19 17:00 24 Mechanical Ventilator 40 02/13/19 17:00 26 Mechanical Ventilator 40 02/13/19 16:25 24 Mechanical Ventilator 50.0 40 02/13/19 16:25 24 Mechanical Ventilator 50.0 40 02/13/19 16:00 Mechanical Ventilator Mechanical Ventilator Mechanical Ventilator 02/13/19 16:00 40 02/13/19 15:28 24 194/95 Mechanical Ventilator 40 02/13/19 15:13 88 24 100 Mechanical Ventilator 40 02/13/19 15:12 81 24 40 02/13/19 15:04 81 24 100 Mechanical Ventilator 40 02/13/19 15:00 85 20 206/95 (132) 93 02/13/19 14:30 81 20 200/86 (124) 93 02/13/19 14:01 182/82 02/13/19 14:00 26 Mechanical Ventilator 40 02/13/19 14:00 91 20 210/88 (128) 93 02/13/19 13:30 82 22 175/73 (107) 96 02/13/19 13:15 74 24 40 02/13/19 13:00 26 Mechanical Ventilator 40 02/13/19 13:00 75 20 160/69 (99) 93 02/13/19 12:31 182/82 02/13/19 12:30 78 20 173/70 (104) 93 02/13/19 12:22 182/82 02/13/19 12:00 91 02/13/19 12:00 26 Endotracheal Tube 40 02/13/19 12:00 24 Mechanical Ventilator 40 02/13/19 12:00 26 Endotracheal Tube 40 02/13/19 12:00 99.6 80 20 132/64 (86) 93 02/13/19 12:00 Mechanical Ventilator Mechanical Ventilator Mechanical Ventilator 02/13/19 12:00 40 02/13/19 11:40 95 31 96 Mechanical Ventilator 40 02/13/19 11:30 95 29 95 Mechanical Ventilator 40 02/13/19 11:20 95 30 40 02/13/19 11:00 78 20 169/78 (108) 93 02/13/19 11:00 26 Mechanical Ventilator 40 02/13/19 10:32 99.3 02/13/19 10:30 24 170/81 Mechanical Ventilator 40 02/13/19 10:30 83 20 188/85 (119) 97 02/13/19 10:02 24 Mechanical Ventilator 50.0 35 02/13/19 10:01 24 155/75 Mechanical Ventilator 50.0 40 02/13/19 10:00 74 24 170/81 (110) 97 02/13/19 10:00 24 170/81 Endotracheal Tube 40 02/13/19 09:30 71 21 145/78 (100) 97 02/13/19 09:00 70 20 150/68 (95) 97 02/13/19 09:00 24 145/67 Endotracheal Tube 40 02/13/19 08:31 75 25 35 02/13/19 08:30 75 20 145/67 (93) 93 02/13/19 08:29 80 132/75 02/13/19 08:28 80 132/75 02/13/19 08:00 81 02/13/19 08:00 75 23 139/66 (90) 96 02/13/19 08:00 40 02/13/19 08:00 22 136/70 Mechanical Ventilator 40 02/13/19 08:00 Mechanical Ventilator Mechanical Ventilator Mechanical Ventilator 02/13/19 07:30 97.8 75 20 136/70 (92) 93 02/13/19 07:00 22 132/75 Mechanical Ventilator 35 02/13/19 07:00 80 20 132/64 (86) 93 02/13/19 06:41 88 24 98 Mechanical Ventilator 35 02/13/19 06:39 78 27 35 02/13/19 06:35 78 24 96 Mechanical Ventilator 35 02/13/19 06:01 27 140/70 35 02/13/19 06:00 81 27 145/75 (98) 94 02/13/19 05:37 149/75 02/13/19 05:25 86 27 35 35 02/13/19 05:00 87 21 140/70 (93) 94 02/13/19 05:00 25 149/75 Mechanical Ventilator 35 02/13/19 04:00 Mechanical Ventilator Mechanical Ventilator Mechanical Ventilator 02/13/19 04:00 35 02/13/19 04:00 20 146/112 02/13/19 04:00 99.3 97 16 146/112 (123) 93 02/13/19 04:00 106 02/13/19 03:31 21 164/75 Mechanical Ventilator 35 02/13/19 03:27 78 24 98 Mechanical Ventilator 35 02/13/19 03:19 93 26 96 Mechanical Ventilator 35 02/13/19 03:18 93 26 35 35 02/13/19 03:00 24 181/101 Mechanical Ventilator 35 02/13/19 03:00 94 24 164/75 (104) 93 02/13/19 02:30 93 22 177/84 (115) 95 02/13/19 02:00 89 16 160/79 (106) 97 02/13/19 02:00 21 169/85 Mechanical Ventilator 35 02/13/19 01:30 84 24 157/75 (102) 95 02/13/19 01:01 88 28 35 35 02/13/19 01:00 79 22 148/74 (98) 96 02/13/19 01:00 24 157/73 Mechanical Ventilator 35 02/13/19 00:41 139/82 02/13/19 00:30 83 22 156/75 (102) 96 02/13/19 00:00 98.9 82 20 133/80 (97) 97 02/13/19 00:00 Mechanical Ventilator Mechanical Ventilator Mechanical Ventilator 02/13/19 00:00 35 02/13/19 00:00 24 139/82 Mechanical Ventilator 35 02/13/19 00:00 96 02/12/19 23:42 29 128/65 Mechanical Ventilator 50.0 35 02/12/19 23:41 22 129/77 Mechanical Ventilator 35 02/12/19 23:33 72 24 98 Mechanical Ventilator 35 02/12/19 23:30 75 20 145/80 (101) 99 02/12/19 23:22 79 29 96 Mechanical Ventilator 35 02/12/19 23:22 74 29 35 35 02/12/19 23:00 24 128/65 35 02/12/19 23:00 73 22 137/72 (93) 96 02/12/19 22:30 72 22 141/77 (98) 96 02/12/19 22:00 72 21 132/75 (94) 96 02/12/19 22:00 22 141/77 Mechanical Ventilator 35 02/12/19 21:30 70 20 136/70 (92) 96 02/12/19 21:00 20 148/74 Mechanical Ventilator 35 02/12/19 21:00 72 20 148/74 (98) 97 02/12/19 20:39 75 25 35 35 02/12/19 20:30 75 22 137/77 (97) 98 02/12/19 20:23 24 128/65 Mechanical Ventilator 50.0 35 02/12/19 20:22 23 134/72 Mechanical Ventilator 35 02/12/19 20:01 68 128/65 02/12/19 20:00 97.9 70 23 134/72 (92) 96 02/12/19 20:00 23 134/72 Mechanical Ventilator 35 02/12/19 20:00 35 02/12/19 20:00 73 02/12/19 20:00 Mechanical Ventilator Mechanical Ventilator Mechanical Ventilator 02/12/19 19:30 68 24 128/65 (86) 98 02/12/19 19:14 68 24 98 Mechanical Ventilator 35 02/12/19 19:04 67 24 97 Mechanical Ventilator 35 02/12/19 19:03 67 24 35 35 02/12/19 19:00 66 24 133/70 (91) 98 02/12/19 19:00 24 133/70 Mechanical Ventilator 98 02/12/19 18:30 68 21 134/71 (92) 97 02/12/19 18:00 68 21 141/72 (95) 96 02/12/19 18:00 24 141/72 Mechanical Ventilator 35 02/12/19 17:52 97.9 02/12/19 17:30 67 23 139/70 (93) 95 02/12/19 17:30 24 128/65 Mechanical Ventilator 50.0 35 02/12/19 17:23 151/75 02/12/19 17:23 67 151/75 02/12/19 17:00 65 24 35 02/12/19 17:00 24 139/72 Mechanical Ventilator 35 02/12/19 17:00 67 21 149/67 (94) 95 02/12/19 16:30 66 24 154/65 (94) 94 02/12/19 16:00 97.9 67 24 151/75 (100) 99 02/12/19 16:00 24 149/67 Mechanical Ventilator 35 02/12/19 16:00 67 02/12/19 16:00 35 02/12/19 15:30 67 22 150/82 (104) 99 02/12/19 15:29 69 28 97 Mechanical Ventilator 35 02/12/19 15:28 69 28 35 02/12/19 15:15 68 28 97 Mechanical Ventilator 35 02/12/19 15:00 24 152/68 Mechanical Ventilator 35 02/12/19 15:00 66 22 149/67 (94) 95 02/12/19 14:30 67 24 154/65 (94) 95 02/12/19 14:21 24 152/66 Mechanical Ventilator 50.0 35 02/12/19 14:00 67 23 152/68 (96) 94 02/12/19 14:00 24 152/68 Mechanical Ventilator 35 02/12/19 13:30 68 24 152/69 (96) 94 02/12/19 13:00 78 24 35 02/12/19 13:00 24 157/75 Mechanical Ventilator 35 02/12/19 13:00 72 25 157/75 (102) 94 02/12/19 12:30 75 23 159/71 (100) 95 02/12/19 12:07 24 159/71 Mechanical Ventilator 35 02/12/19 12:00 35 02/12/19 12:00 98.6 76 23 152/66 (94) 94 02/12/19 12:00 79 02/12/19 11:45 77 23 166/74 (104) 94 02/12/19 11:38 30 136/62 Mechanical Ventilator 50.0 35 02/12/19 11:30 90 24 215/97 (136) 96 02/12/19 11:15 90 22 100 Mechanical Ventilator 35 02/12/19 11:00 89 26 175/85 (115) 98 02/12/19 11:00 24 168/75 Mechanical Ventilator 35 02/12/19 11:00 88 22 95 Mechanical Ventilator 35 02/12/19 11:00 76 24 35 02/12/19 10:30 85 25 168/76 (106) 98 02/12/19 10:00 81 23 168/75 (106) 100 02/12/19 10:00 24 146/69 Mechanical Ventilator 35.0 02/12/19 09:38 136/62 02/12/19 09:38 136/62 02/12/19 09:37 94 136/62 02/12/19 09:30 80 22 151/69 (96) 98 02/12/19 09:16 94 30 35 02/12/19 09:00 24 156/69 Mechanical Ventilator 35 02/12/19 09:00 77 24 146/69 (94) 98 02/12/19 08:30 77 24 160/67 (98) 97 02/12/19 08:07 30 136/62 Mechanical Ventilator 50.0 35 02/12/19 08:00 97.9 78 25 156/69 (98) 98 02/12/19 08:00 45 02/12/19 08:00 74 02/12/19 07:30 84 22 151/68 (95) 99 02/12/19 07:15 86 30 100 Mechanical Ventilator 35 02/12/19 07:00 75 24 149/65 (93) 95 02/12/19 07:00 24 136/62 Mechanical Ventilator 35 02/12/19 07:00 84 28 35 02/12/19 07:00 84 24 96 Mechanical Ventilator 35 02/12/19 06:30 80 24 142/62 (88) 98 02/12/19 06:08 24 152/82 Mechanical Ventilator 02/12/19 06:00 79 24 136/62 (86) 98 02/12/19 05:30 78 24 152/70 (97) 98 02/12/19 05:24 77 24 35 02/12/19 05:00 78 23 155/78 (103) 100 02/12/19 05:00 24 155/78 Mechanical Ventilator 02/12/19 04:30 80 23 149/74 (99) 100 02/12/19 04:00 98.0 80 24 131/92 (105) 100 02/12/19 04:00 45 02/12/19 04:00 76 02/12/19 04:00 Mechanical Ventilator Mechanical Ventilator Mechanical Ventilator 02/12/19 04:00 25 151/75 Mechanical Ventilator 02/12/19 03:30 76 24 141/83 (102) 100 02/12/19 03:16 76 24 100 Mechanical Ventilator 50 02/12/19 03:06 70 24 40 02/12/19 03:06 70 24 98 Mechanical Ventilator 45 02/12/19 03:00 73 24 132/62 (85) 100 02/12/19 03:00 25 141/83 Mechanical Ventilator 45 02/12/19 02:30 75 24 158/73 (101) 100 02/12/19 02:00 24 155/65 Mechanical Ventilator 45 02/12/19 02:00 75 24 158/73 (101) 100 02/12/19 01:40 24 144/66 45 02/12/19 01:30 79 24 144/66 (92) 100 02/12/19 01:23 76 24 45 02/12/19 01:00 24 146/62 Mechanical Ventilator 50 02/12/19 01:00 75 24 143/67 (92) 100 02/12/19 00:30 73 24 146/62 (90) 100 02/12/19 00:00 Mechanical Ventilator Mechanical Ventilator Mechanical Ventilator 02/12/19 00:00 97.8 72 24 145/63 (90) 100 02/12/19 00:00 24 146/62 Mechanical Ventilator 50 02/11/19 23:45 24 146/72 Mechanical Ventilator 02/11/19 23:39 74 24 100 Mechanical Ventilator 50 02/11/19 23:30 73 24 147/67 (93) 100 02/11/19 23:30 24 152/59 Mechanical Ventilator 50 02/11/19 23:29 78 25 100 Mechanical Ventilator 50 02/11/19 23:15 24 147/60 Mechanical Ventilator 02/11/19 23:14 78 25 50 02/11/19 23:00 76 24 152/71 (98) 100 02/11/19 23:00 24 150/80 Mechanical Ventilator 02/11/19 22:30 85 23 167/83 (111) 100 02/11/19 22:00 88 23 147/62 (90) 100 02/11/19 22:00 24 147/64 Mechanical Ventilator 50 02/11/19 21:30 74 24 147/64 (91) 99 02/11/19 21:00 75 24 153/64 (93) 99 02/11/19 21:00 24 153/64 Mechanical Ventilator 50.0 02/11/19 20:42 75 24 50 02/11/19 20:36 74 144/63 02/11/19 20:30 74 24 144/63 (90) 98 02/11/19 20:00 Mechanical Ventilator Mechanical Ventilator Mechanical Ventilator 02/11/19 20:00 50 02/11/19 20:00 75 02/11/19 20:00 24 148/69 Mechanical Ventilator 50 02/11/19 20:00 98.4 75 24 148/69 (95) 98 02/11/19 19:24 76 26 99 Mechanical Ventilator 50 02/11/19 19:12 73 24 98 Mechanical Ventilator 50 02/11/19 19:12 74 24 50 02/11/19 19:00 24 158/68 Mechanical Ventilator 50 02/11/19 19:00 86 26 151/76 (101) 98 02/11/19 18:54 24 149/73 Mechanical Ventilator 02/11/19 18:30 74 24 149/73 (98) 98 02/11/19 18:20 24 155/77 Mechanical Ventilator 50 02/11/19 18:00 76 24 155/77 (103) 98 Intake and Output 02/12/19 02/13/19 19:00 07:00 Intake Total 2590.816 ml 2280.861 ml Output Total 495 ml Balance 2590.816 ml 1785.861 ml Free Water 100 ml 200 ml IV Total 2245.816 ml 1660.861 ml Tube Feeding 245 ml 420 ml Output Urine Total 495 ml # Voids 545 285 Labs Test 02/11/19 06:10 02/11/19 08:57 02/11/19 10:05 02/12/19 03:45 White Blood Count 5.8 K/UL (4.8-10.8) 6.2 K/UL (4.8-10.8) Red Blood Count 2.96 M/UL (4.70-6.10) 2.94 M/UL (4.70-6.10) Hemoglobin 8.2 G/DL (14.2-18.0) 8.2 G/DL (14.2-18.0) Hematocrit 25.0 % (42.0-52.0) 24.7 % (42.0-52.0) Mean Corpuscular Volume 85 FL (80-99) 84 FL (80-99) Mean Corpuscular Hemoglobin 27.6 PG (27.0-31.0) 27.8 PG (27.0-31.0) Mean Corpuscular Hemoglobin Concent 32.6 G/DL (32.0-36.0) 33.2 G/DL (32.0-36.0) Red Cell Distribution Width 17.8 % (11.6-14.8) 17.5 % (11.6-14.8) Platelet Count 153 K/UL (150-450) 179 K/UL (150-450) Mean Platelet Volume 5.7 FL (6.5-10.1) 6.5 FL (6.5-10.1) Neutrophils (%) (Auto) % (45.0-75.0) % (45.0-75.0) Lymphocytes (%) (Auto) % (20.0-45.0) % (20.0-45.0) Monocytes (%) (Auto) % (1.0-10.0) % (1.0-10.0) Eosinophils (%) (Auto) % (0.0-3.0) % (0.0-3.0) Basophils (%) (Auto) % (0.0-2.0) % (0.0-2.0) Differential Total Cells Counted 100 Neutrophils % (Manual) 90 % (45-75) Lymphocytes % (Manual) 7 % (20-45) Monocytes % (Manual) 3 % (1-10) Eosinophils % (Manual) 0 % (0-3) Basophils % (Manual) 0 % (0-2) Band Neutrophils 0 % (0-8) Other Cell Type Pathologist review Platelet Estimate Adequate Platelet Morphology Normal Anisocytosis 1+ Reticulocyte Count 0.2 % (0.5-2.0) Prothrombin Time 10.5 SEC (9.30-11.50) Prothromb Time International Ratio 1.0 (0.9-1.1) Sodium Level 140 MMOL/L (136-145) 139 MMOL/L (136-145) Potassium Level 4.1 MMOL/L (3.5-5.1) 4.0 MMOL/L (3.5-5.1) Chloride Level 106 MMOL/L (98-107) 108 MMOL/L (98-107) Carbon Dioxide Level 18 MMOL/L (21-32) 18 MMOL/L (21-32) Anion Gap 17 mmol/L (5-15) 14 mmol/L (5-15) Blood Urea Nitrogen 45 mg/dL (7-18) 63 mg/dL (7-18) Creatinine 3.3 MG/DL (0.55-1.30) 3.8 MG/DL (0.55-1.30) Estimat Glomerular Filtration Rate 19.3 mL/min (>60) 16.4 mL/min (>60) Glucose Level 370 MG/DL (74-106) 210 MG/DL (74-106) Hemoglobin A1c 7.8 % (4.3-6.0) 7.0 % (4.3-6.0) Calcium Level 7.9 MG/DL (8.5-10.1) 7.6 MG/DL (8.5-10.1) Iron Level 6 ug/dL (50-175) Total Iron Binding Capacity 126 ug/dL (250-450) Percent Iron Saturation 5 % (15-50) Unsaturated Iron Binding 120 ug/dL (112-346) Ferritin 182 NG/ML (8-388) Total Bilirubin 0.7 MG/DL (0.2-1.0) 0.3 MG/DL (0.2-1.0) Direct Bilirubin 0.4 MG/DL (0.0-0.3) 0.2 MG/DL (0.0-0.3) Lactate Dehydrogenase 311 U/L (81-234) Troponin I 7.745 ng/mL (0.000-0.056) Pro-B-Type Natriuretic Peptide 5767 pg/mL (0-125) Triglycerides Level 194 MG/DL (30-150) Carcinoembryonic Antigen 2.3 ng/mL (0.0-4.7) Vitamin B12 Level 1213 PG/ML (193-986) Thyroid Stimulating Hormone (TSH) 0.487 uiU/mL (0.358-3.740) Hepatitis A IgM Antibody Negative (Negative) Hepatitis B Surface Antigen Negative (Negative) Hepatitis B Core IgM Antibody Negative (Negative) Hepatitis C Antibody <0.1 s/co ratio HIV (1&2) Antibody Rapid Preliminary positive Arterial Blood pH 7.422 (7.350-7.450) Arterial Blood Partial Pressure CO2 24.0 mmHg (35.0-45.0) Arterial Blood Partial Pressure O2 76.3 mmHg (75.0-100.0) Arterial Blood HCO3 15.3 mmol/L (22.0-26.0) Arterial Blood Oxygen Saturation 94.4 % (95-100) Arterial Blood Base Excess -7.9 (-2-2) Benny Test Positive Vancomycin Level Trough 22.8 ug/mL (5.0-12.0) Uric Acid 7.8 MG/DL (2.6-7.2) Phosphorus Level 3.9 MG/DL (2.5-4.9) Magnesium Level 2.9 MG/DL (1.8-2.4) Aspartate Amino Transf (AST/SGOT) 63 U/L (15-37) Alanine Aminotransferase (ALT/SGPT) 77 U/L (12-78) Alkaline Phosphatase 264 U/L (46-116) Total Protein 5.0 G/DL (6.4-8.2) Albumin 1.8 G/DL (3.4-5.0) Folate 28.4 NG/ML (8.6-58.9) Random Vancomycin Level 18.6 ug/mL Test 02/12/19 16:15 02/12/19 16:20 02/13/19 04:00 02/13/19 05:00 Sodium Level 140 MMOL/L (136-145) 142 MMOL/L (136-145) Potassium Level 4.5 MMOL/L (3.5-5.1) 4.8 MMOL/L (3.5-5.1) Chloride Level 110 MMOL/L (98-107) 111 MMOL/L (98-107) Carbon Dioxide Level 16 MMOL/L (21-32) 15 MMOL/L (21-32) Anion Gap 14 mmol/L (5-15) 16 mmol/L (5-15) Blood Urea Nitrogen 64 mg/dL (7-18) 70 mg/dL (7-18) Creatinine 3.9 MG/DL (0.55-1.30) 3.8 MG/DL (0.55-1.30) Estimat Glomerular Filtration Rate 15.9 mL/min (>60) 16.4 mL/min (>60) Glucose Level 178 MG/DL (74-106) 198 MG/DL (74-106) Calcium Level 7.3 MG/DL (8.5-10.1) 8.1 MG/DL (8.5-10.1) Urine Color Pale yellow Urine Appearance Slightly cloudy Urine pH 5 (4.5-8.0) Urine Specific [place] 1.015 (1.005-1.035) Urine Protein 2+ (NEGATIVE) Urine Glucose (UA) Negative (NEGATIVE) Urine Ketones Negative (NEGATIVE) Urine Blood 2+ (NEGATIVE) Urine Nitrite Negative (NEGATIVE) Urine Bilirubin Negative (NEGATIVE) Urine Urobilinogen Normal MG/DL (0.0-1.0) Urine Leukocyte Esterase Negative (NEGATIVE) Urine RBC 10-15 /HPF (0 - 0) Urine WBC 0-2 /HPF (0 - 0) Urine Squamous Epithelial Cells Occasional /LPF Urine Amorphous Sediment Moderate /LPF (NONE) Urine Bacteria Few /HPF (NONE) Urine Random Sodium 44 mmol/L (20-110) Urine Eosinophils None seen (NONE SEEN) White Blood Count 11.6 K/UL (4.8-10.8) Red Blood Count 3.35 M/UL (4.70-6.10) Hemoglobin 9.4 G/DL (14.2-18.0) Hematocrit 28.7 % (42.0-52.0) Mean Corpuscular Volume 86 FL (80-99) Mean Corpuscular Hemoglobin 28.1 PG (27.0-31.0) Mean Corpuscular Hemoglobin Concent 32.8 G/DL (32.0-36.0) Red Cell Distribution Width 18.2 % (11.6-14.8) Platelet Count 257 K/UL (150-450) Mean Platelet Volume 6.3 FL (6.5-10.1) Neutrophils (%) (Auto) % (45.0-75.0) Lymphocytes (%) (Auto) % (20.0-45.0) Monocytes (%) (Auto) % (1.0-10.0) Eosinophils (%) (Auto) % (0.0-3.0) Basophils (%) (Auto) % (0.0-2.0) Differential Total Cells Counted 100 Neutrophils % (Manual) 90 % (45-75) Lymphocytes % (Manual) 7 % (20-45) Monocytes % (Manual) 3 % (1-10) Eosinophils % (Manual) 0 % (0-3) Basophils % (Manual) 0 % (0-2) Band Neutrophils 0 % (0-8) Platelet Estimate Adequate Platelet Morphology Normal Activated Partial Thromboplast Time 29 SEC (23-33) Uric Acid 6.9 MG/DL (2.6-7.2) Phosphorus Level 5.3 MG/DL (2.5-4.9) Magnesium Level 2.9 MG/DL (1.8-2.4) Total Bilirubin 0.3 MG/DL (0.2-1.0) Gamma Glutamyl Transpeptidase 473 U/L (5-85) Aspartate Amino Transf (AST/SGOT) 49 U/L (15-37) Alanine Aminotransferase (ALT/SGPT) 74 U/L (12-78) Alkaline Phosphatase 249 U/L (46-116) Total Creatine Kinase 171 U/L (26-308) Troponin I 3.192 ng/mL (0.000-0.056) C-Reactive Protein, Quantitative 8.2 mg/dL (0.00-0.90) Pro-B-Type Natriuretic Peptide 6068 pg/mL (0-125) Total Protein 6.6 G/DL (6.4-8.2) Albumin 2.0 G/DL (3.4-5.0) Globulin 4.6 g/dL Albumin/Globulin Ratio 0.4 (1.0-2.7) Triglycerides Level 198 MG/DL (30-150) Thyroid Stimulating Hormone (TSH) 0.460 uiU/mL (0.358-3.740) Test 02/13/19 08:23 02/13/19 14:10 02/13/19 16:10 Arterial Blood pH 7.278 (7.350-7.450) 7.162 (7.350-7.450) 7.279 (7.350-7.450) Arterial Blood Partial Pressure CO2 33.1 mmHg (35.0-45.0) 42.8 mmHg (35.0-45.0) 33.7 mmHg (35.0-45.0) Arterial Blood Partial Pressure O2 83.2 mmHg (75.0-100.0) 81.1 mmHg (75.0-100.0) 71.4 mmHg (75.0-100.0) Arterial Blood HCO3 15.1 mmol/L (22.0-26.0) 15.0 mmol/L (22.0-26.0) 15.4 mmol/L (22.0-26.0) Arterial Blood Oxygen Saturation 94.1 % (95-100) 92.4 % (95-100) 92.2 % (95-100) Arterial Blood Base Excess -10.6 (-2-2) -13.0 (-2-2) -10.3 (-2-2) Benny Test Positive Positive Positive Height (Feet): 6 Height (Inches): 0.00 Weight (Pounds): 211 Objective PHYSICAL EXAMINATION: GENERAL: NAD VITAL SIGNS: Have been reviewed. HEAD AND NECK: Shows no JVD. NG+ TRACH+ LUNGS: Coarse rhonchi. CARDIOVASCULAR: Shows regular S1 and S2 with no gallop or murmur. ABDOMEN: Soft. EXTREMITIES: No pitting edema. Chan Hernandez MD Feb 13, 2019 18:03
--- NOTE | 2019-02-13 19:09 | General Progress Note ---
Assessment/Plan Status: stable Assessment/Plan: 58 y Male admitted to the hospital due to fever, shortness of breath and chest pain. # Multilobar pneumonia in patient with HIV- worse - Broad sp atbx. Will continue Zosyn, Vancomycin and Azithromycin - Bactrim added for PCP coverage - Droplet precaution -DCed - Oxygen support - ID consult appreciated. AFB, cocci, hystoplasma, legionella, ordered. . - Patient s/p emergent bronchoscopy given florid ARDS without clear etiology # Acute Hypoxemic respiratory failure # ARDS - improved - Cont mechanical ventilation, changed to pressure control - s/p emergent bronchoscopy - Due to pneumonia # NSTEMI - EKG with bifascicular block RBB and LAFB, no ST changes. - Trend troponin x3 - ECHO completed with no WMA and preserved EF. Dr. Francois consulted. Consideration for outpatient cath vs possibly myocarditis due to underlying viral infection. No evidence of Takotsubo per TTE. - NGT prn - Pain control with morphine # HIV - Continue HARRT - VL is undetectable per patient report. 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 - Trend renal function -Nephrology consulted -may need HD -avoid nephrotoxic meds DVT and GI ppx Full code A total of 35 mins of critical care time was spent on this patient, dealing with hypoxemic resp failure requiring continuous mechanical ventilation, reviewing telemetry data, discussion with bedside COMPLIANCE DIRECTOR Subjective Date patient seen: Feb 13, 2019 Allergies: Coded Allergies: No Known Allergies (Unverified , 02/05/13) Subjective No acute overnight event, O2 requirement decreased, PEEP decreased to 5, pt remains sedated and intubated in ICU Objective Last 24 Hour Vital Signs Date Time Temp Pulse Resp B/P (MAP) Pulse Ox O2 Delivery O2 Flow Rate FiO2 02/13/19 18:30 69 24 151/66 (94) 97 02/13/19 18:06 150/61 02/13/19 18:00 24 Mechanical Ventilator 40 02/13/19 18:00 24 Mechanical Ventilator 40 02/13/19 18:00 69 24 150/61 (90) 98 02/13/19 17:30 70 24 153/63 (93) 98 02/13/19 17:18 68 24 40 02/13/19 17:00 70 24 144/64 (90) 98 02/13/19 17:00 24 Mechanical Ventilator 40 02/13/19 17:00 26 Mechanical Ventilator 40 02/13/19 16:55 97.6 02/13/19 16:30 70 24 137/95 (109) 98 02/13/19 16:25 24 Mechanical Ventilator 50.0 40 02/13/19 16:25 24 Mechanical Ventilator 50.0 40 02/13/19 16:00 Mechanical Ventilator Mechanical Ventilator Mechanical Ventilator 02/13/19 16:00 68 02/13/19 16:00 97.8 68 24 140/62 (88) 97 02/13/19 16:00 40 02/13/19 15:30 72 24 206/95 (132) 98 02/13/19 15:28 24 194/95 Mechanical Ventilator 40 02/13/19 15:13 88 24 100 Mechanical Ventilator 40 02/13/19 15:12 81 24 40 02/13/19 15:04 81 24 100 Mechanical Ventilator 40 02/13/19 15:00 85 20 206/95 (132) 93 02/13/19 14:30 81 20 200/86 (124) 93 02/13/19 14:01 182/82 02/13/19 14:00 26 Mechanical Ventilator 40 02/13/19 14:00 91 20 210/88 (128) 93 02/13/19 13:30 82 22 175/73 (107) 96 02/13/19 13:15 74 24 40 02/13/19 13:00 26 Mechanical Ventilator 40 02/13/19 13:00 75 20 160/69 (99) 93 02/13/19 12:31 182/82 02/13/19 12:30 78 20 173/70 (104) 93 02/13/19 12:22 182/82 02/13/19 12:00 91 02/13/19 12:00 26 Endotracheal Tube 40 02/13/19 12:00 24 Mechanical Ventilator 40 02/13/19 12:00 26 Endotracheal Tube 40 02/13/19 12:00 99.6 80 20 132/64 (86) 93 02/13/19 12:00 Mechanical Ventilator Mechanical Ventilator Mechanical Ventilator 02/13/19 12:00 40 02/13/19 11:40 95 31 96 Mechanical Ventilator 40 02/13/19 11:30 95 29 95 Mechanical Ventilator 40 02/13/19 11:20 95 30 40 02/13/19 11:00 78 20 169/78 (108) 93 02/13/19 11:00 26 Mechanical Ventilator 40 02/13/19 10:32 99.3 02/13/19 10:30 24 170/81 Mechanical Ventilator 40 02/13/19 10:30 83 20 188/85 (119) 97 02/13/19 10:02 24 Mechanical Ventilator 50.0 35 02/13/19 10:01 24 155/75 Mechanical Ventilator 50.0 40 02/13/19 10:00 74 24 170/81 (110) 97 02/13/19 10:00 24 170/81 Endotracheal Tube 40 02/13/19 09:30 71 21 145/78 (100) 97 02/13/19 09:00 70 20 150/68 (95) 97 02/13/19 09:00 24 145/67 Endotracheal Tube 40 02/13/19 08:31 75 25 35 02/13/19 08:30 75 20 145/67 (93) 93 02/13/19 08:29 80 132/75 02/13/19 08:28 80 132/75 02/13/19 08:00 81 02/13/19 08:00 75 23 139/66 (90) 96 02/13/19 08:00 40 02/13/19 08:00 22 136/70 Mechanical Ventilator 40 02/13/19 08:00 Mechanical Ventilator Mechanical Ventilator Mechanical Ventilator 02/13/19 07:30 97.8 75 20 136/70 (92) 93 02/13/19 07:00 22 132/75 Mechanical Ventilator 35 02/13/19 07:00 80 20 132/64 (86) 93 02/13/19 06:41 88 24 98 Mechanical Ventilator 35 02/13/19 06:39 78 27 35 02/13/19 06:35 78 24 96 Mechanical Ventilator 35 02/13/19 06:01 27 140/70 35 02/13/19 06:00 81 27 145/75 (98) 94 02/13/19 05:37 149/75 02/13/19 05:25 86 27 35 35 02/13/19 05:00 87 21 140/70 (93) 94 02/13/19 05:00 25 149/75 Mechanical Ventilator 35 02/13/19 04:00 Mechanical Ventilator Mechanical Ventilator Mechanical Ventilator 6/25/19 04:00 35 02/13/19 04:00 20 146/112 02/13/19 04:00 99.3 97 16 146/112 (123) 93 02/13/19 04:00 106 02/13/19 03:31 21 164/75 Mechanical Ventilator 35 02/13/19 03:27 78 24 98 Mechanical Ventilator 35 02/13/19 03:19 93 26 96 Mechanical Ventilator 35 02/13/19 03:18 93 26 35 35 02/13/19 03:00 24 181/101 Mechanical Ventilator 35 02/13/19 03:00 94 24 164/75 (104) 93 02/13/19 02:30 93 22 177/84 (115) 95 02/13/19 02:00 89 16 160/79 (106) 97 02/13/19 02:00 21 169/85 Mechanical Ventilator 35 02/13/19 01:30 84 24 157/75 (102) 95 02/13/19 01:01 88 28 35 35 02/13/19 01:00 79 22 148/74 (98) 96 02/13/19 01:00 24 157/73 Mechanical Ventilator 35 02/13/19 00:41 139/82 02/13/19 00:30 83 22 156/75 (102) 96 02/13/19 00:00 98.9 82 20 133/80 (97) 97 02/13/19 00:00 Mechanical Ventilator Mechanical Ventilator Mechanical Ventilator 02/13/19 00:00 35 02/13/19 00:00 24 139/82 Mechanical Ventilator 35 02/13/19 00:00 96 02/12/19 23:42 29 128/65 Mechanical Ventilator 50.0 35 02/12/19 23:41 22 129/77 Mechanical Ventilator 35 02/12/19 23:33 72 24 98 Mechanical Ventilator 35 02/12/19 23:30 75 20 145/80 (101) 99 02/12/19 23:22 79 29 96 Mechanical Ventilator 35 02/12/19 23:22 74 29 35 35 02/12/19 23:00 24 128/65 35 02/12/19 23:00 73 22 137/72 (93) 96 02/12/19 22:30 72 22 141/77 (98) 96 02/12/19 22:00 72 21 132/75 (94) 96 02/12/19 22:00 22 141/77 Mechanical Ventilator 35 02/12/19 21:30 70 20 136/70 (92) 96 02/12/19 21:00 20 148/74 Mechanical Ventilator 35 02/12/19 21:00 72 20 148/74 (98) 97 02/12/19 20:39 75 25 35 35 02/12/19 20:30 75 22 137/77 (97) 98 02/12/19 20:23 24 128/65 Mechanical Ventilator 50.0 35 02/12/19 20:22 23 134/72 Mechanical Ventilator 35 02/12/19 20:01 68 128/65 02/12/19 20:00 97.9 70 23 134/72 (92) 96 02/12/19 20:00 23 134/72 Mechanical Ventilator 35 02/12/19 20:00 35 02/12/19 20:00 73 02/12/19 20:00 Mechanical Ventilator Mechanical Ventilator Mechanical Ventilator 02/12/19 19:30 68 24 128/65 (86) 98 02/12/19 19:14 68 24 98 Mechanical Ventilator 35 Intake and Output 02/12/19 02/13/19 19:00 07:00 Intake Total 2590.816 ml 2280.861 ml Output Total 495 ml Balance 2590.816 ml 1785.861 ml Free Water 100 ml 200 ml IV Total 2245.816 ml 1660.861 ml Tube Feeding 245 ml 420 ml Output Urine Total 495 ml # Voids 545 285 Laboratory Tests 02/13/19 04:00: Urine Eosinophils None seen 02/13/19 05:00: White Blood Count 11.6#H, Red Blood Count 3.35L, Hemoglobin 9.4L, Hematocrit 28.7L, Mean Corpuscular Volume 86, Mean Corpuscular Hemoglobin 28.1, Mean Corpuscular Hemoglobin Concent 32.8, Red Cell Distribution Width 18.2H, Platelet Count 257, Mean Platelet Volume 6.3L, Neutrophils (%) (Auto) , Lymphocytes (%) (Auto) , Monocytes (%) (Auto) , Eosinophils (%) (Auto) , Basophils (%) (Auto) , Differential Total Cells Counted 100, Neutrophils % ( Manual) 90H, Lymphocytes % (Manual) 7L, Monocytes % (Manual) 3, Eosinophils % ( Manual) 0, Basophils % (Manual) 0, Band Neutrophils 0, Platelet Estimate Adequate, Platelet Morphology Normal, Activated Partial Thromboplast Time 29, Sodium Level 142, Potassium Level 4.8, Chloride Level 111H, Carbon Dioxide Level 15L, Anion Gap 16H, Blood Urea Nitrogen 70H, Creatinine 3.8H, Estimat Glomerular Filtration Rate 16.4, Glucose Level 198H, Uric Acid 6.9, Calcium Level 8.1L, Phosphorus Level 5.3H, Magnesium Level 2.9H, Total Bilirubin 0.3, Gamma Glutamyl Transpeptidase 473H, Aspartate Amino Transf (AST/SGOT) 49H, Alanine Aminotransferase (ALT/SGPT) 74, Alkaline Phosphatase 249H, Total Creatine Kinase 171, Troponin I 3.192H, C-Reactive Protein, Quantitative 8.2H, Pro-B-Type Natriuretic Peptide 6068H, Total Protein 6.6#, Albumin 2.0L, Globulin 4.6, Albumin/Globulin Ratio 0.4L, Triglycerides Level 198H, Thyroid Stimulating Hormone (TSH) 0.460 02/13/19 08:23: Arterial Blood pH 7.278L, Arterial Blood Partial Pressure CO2 33.1L, Arterial Blood Partial Pressure O2 83.2, Arterial Blood HCO3 15.1*L, Arterial Blood Oxygen Saturation 94.1L, Arterial Blood Base Excess -10.6*L, Benny Test Positive 02/13/19 14:10: Arterial Blood pH 7.162*L, Arterial Blood Partial Pressure CO2 42.8, Arterial Blood Partial Pressure O2 81.1, Arterial Blood HCO3 15.0*L, Arterial Blood Oxygen Saturation 92.4L, Arterial Blood Base Excess -13.0*L, Benny Test Positive 02/13/19 16:10: Arterial Blood pH 7.279L, Arterial Blood Partial Pressure CO2 33.7L, Arterial Blood Partial Pressure O2 71.4L, Arterial Blood HCO3 15.4*L, Arterial Blood Oxygen Saturation 92.2L, Arterial Blood Base Excess -10.3*L, Benny Test Positive Height (Feet): 6 Height (Inches): 0.00 Weight (Pounds): 211 Objective General Appearance: Intubated, sedated. WD/WN, no apparent distress EENT: intubated Neck: non-tender, normal alignment Cardiovascular: normal peripheral pulses, normal rate Respiratory/Chest: chest wall non-tender, lungs clear Abdomen: normal bowel sounds, non tender Extremities: normal range of motion, non-tender Edema: trace edema Neurologic: pediatric clinical nurse specialist II-XII grossly normal Sonja Douglas MD Feb 13, 2019 19:09
--- NOTE | 2019-02-13 19:16 | NUR ---
HAND-OFF: Report given to TESSA Najera using SBAR.
--- NOTE | 2019-02-13 19:30 | NUR ---
NURSE NOTES: Received pt from Suze Case RN. pt is sedated, RASS -2. Orally intubated ETT AC 24/TV 600/Fio2 40%/PEEP 5, RR 24, SPo2 100%, non labored even breathing. Rhonchi bilateral b/s, moderate thin white secretions. RFA 20G, LW 20G, LAC 20G running Versed@4mg/hr,Fentanyl gtt running at 100mcg/hr, insulin gtt @7u/hr, 1/1AbBOB8@100m/hr. Generalized edema all around, SR on alarm security or surveillance monitor. OGT running Glucerna 1.5@35cc/hr, 20cc residual noted, abdomen distended and firm, hob 35 degrees. bilateral wrist restraints in place, skin intact and warm to touch. FC draining well to gravity. No BM, OB to be collected. Bed locked, alarmed and in lowest position. Will continue plan of care.
--- NOTE | 2019-02-13 20:00 | NUR ---
NURSE NOTES: Blood glucose was checked, resulted 172, per order/algorithm protocol, insulin drip rate is now at 7units/hour.
[2019-02-13] MEDS: Dyna-Hex 2% Top Sol 2oz TOPIC SCH (20:33)
[2019-02-13] MEDS: Miralax 17gm pkt ORAL SCH (20:33)
[2019-02-13] MEDS: Atorvastatin 20mg tab ORAL SCH (20:34)
[2019-02-13] MEDS: Enoxaparin 40mg Inj SUBQ SCH ×2 (20:35→21:00)
--- NOTE | 2019-02-13 21:00 | NUR ---
NURSE NOTES: Patient noted to have dry red slimly looking thing on the pads. It wasn't stool but it did come from the rectum. I scanned the Lovenox but with held it just to confirm it may not be gi bleed. Patient does have abdominal distention also. Stool softener were given.
--- NOTE | 2019-02-13 22:00 | NUR ---
NURSE NOTES: Blood glucose was checked, resulted 169, per order/algorithm protocol, insulin drip rate is maintained at 7units/hour. Patient repositioned and given oral care.
[2019-02-13] MEDS: HydrALAZINE 50mg tab NG SCH (23:46)
[2019-02-14] VITALS (47 sets, daily range): BP systolic 100–182; BP diastolic 41–83
--- NOTE | 2019-02-14 | NUR ---
NURSE NOTES: Blood glucose was checked, resulted 216, per order/algorithm protocol, insulin drip rate is changed 11units/hour. Versed gtt maintained at 4mg/hr. fentanyl gtt maintained at 100mcg/hr. Repositioned and given oral care.
[2019-02-14] MEDS: Insulin Human Regular 100units/ml 3ml IV PRN ×2 (00:02→14:08)
--- NOTE | 2019-02-14 02:00 | NUR ---
NURSE NOTES: Blood glucose was checked, resulted 175, per order/algorithm protocol, insulin drip rate is changed to 7units/hour. Versed gtt maintained at 4mg/hr. fentanyl gtt maintained at 100mcg/hr. Repositioned and given oral care. Abdomen remains distended. BP stable, no fevers.
[2019-02-14] MEDS: Albuterol/Ipratropium 3ml neb HHN SCH ×5 (03:15→23:12)
[2019-02-14] MEDS: Midazolam for drip 50 MG in NS 90 ML IV SCH ×3 (03:41→17:39)
--- NOTE | 2019-02-14 04:00 | NUR ---
NURSE NOTES: Blood glucose was checked, resulted 179, per order/algorithm protocol, insulin drip rate is maintained to 7units/hour. Versed gtt maintained at 4mg/hr. fentanyl gtt maintained at 100mcg/hr. Repositioned and given oral care. NO BM yet but patient is passing gas. BP stable, no fevers. New Versed bag hung and insulin bag hung. Patient cleaned and repositioned, labs drawn.
[2019-02-14 05:32] LABS: BASOPHILS % (AUTO) 0.6 % (0.0-2.0); EOSINOPHILS % (AUTO) 0.2 % (0.0-3.0); HEMATOCRIT 26.4 % (42.0-52.0); HEMOGLOBIN 8.5 G/DL (14.2-18.0); LYMPHOCYTES % (AUTO) 15.2 % (20.0-45.0); MEAN CORPUSCULAR VOLUME 85 FL (80-99); MONOCYTES % (AUTO) 8.9 % (1.0-10.0); NEUTROPHILS % (AUTO) 75.1 % (45.0-75.0); PLATELET COUNT 224 K/UL (150-450); RED CELL DISTRIBUTION WIDTH 18.3 % (11.6-14.8); WHITE BLOOD COUNT 6.3 K/UL (4.8-10.8)
[2019-02-14] MEDS: Zosyn 3.375gm q12h **Extended infusion IVPB SCH ×4 (05:49→17:39)
[2019-02-14] MEDS: Sodium Citrate 30ml NG SCH ×4 (05:49→23:41)
[2019-02-14] MEDS: HydrALAZINE 50mg tab NG SCH ×4 (05:49→23:40)
[2019-02-14] MEDS: Midazolam 2mg/2ml Inj IVP PRN (05:49)
[2019-02-14] MEDS: Sodium Bicarbonate 150 ML in 1/2 NS 1000ml 1,000 ML IV SCH ×2 (05:50→17:42)
--- NOTE | 2019-02-14 06:00 | NUR ---
NURSE NOTES: Blood glucose was checked, resulted 141, per order/algorithm protocol, insulin drip rate is changed to 5.5units/hour. Versed gtt maintained at 4mg/hr. fentanyl gtt maintained at 100mcg/hr. Repositioned and given oral care. NO BM yet but patient is passing gas. BP stable, no fevers
[2019-02-14 06:27] LABS: ALANINE AMINOTRANSFERASE 59 U/L (12-78); ALBUMIN 1.9 G/DL (3.4-5.0); ALBUMIN/GLOBULIN RATIO 0.5 (1.0-2.7); ALKALINE PHOSPHATASE 183 U/L (46-116); ANION GAP 12 mmol/L (5-15); ASPARTATE AMINO TRANSFERASE 35 U/L (15-37); BILIRUBIN,TOTAL 0.3 MG/DL (0.2-1.0); BLOOD UREA NITROGEN 68 mg/dL (7-18); CALCIUM 7.7 MG/DL (8.5-10.1); CARBON DIOXIDE 22 MMOL/L (21-32); CHLORIDE 111 MMOL/L (98-107); CREATININE 3.5 MG/DL (0.55-1.30); PHOSPHORUS 5.3 MG/DL (2.5-4.9); POTASSIUM 4.5 MMOL/L (3.5-5.1); SODIUM 144 MMOL/L (136-145)
--- NOTE | 2019-02-14 06:44 | General Progress Note ---
Assessment/Plan Problem List: (1) ISH (acute kidney injury) ICD Codes: N17.9 - Acute kidney failure, unspecified SNOMED: 15397649 (2) Uncontrolled type 2 diabetes mellitus with chronic kidney disease ICD Codes: E11.22 - Type 2 diabetes mellitus with diabetic chronic kidney disease; E11.65 - Type 2 diabetes mellitus with hyperglycemia SNOMED: 56921445, 234435932, [id number] (3) HIV disease ICD Codes: B20 - Human immunodeficiency virus [HIV] disease SNOMED: 21325572 (4) Respiratory distress ICD Codes: R06.03 - Acute respiratory distress SNOMED: 995811797 Status: stable Assessment/Plan: still requiring high dose insulin gtt about 7 units / hour - will continue to manage hyperglycemia with insulin gtt - glucose monitoring frequency reduced to every 2 hours Subjective ROS Limited/Unobtainable: Yes Allergies: Coded Allergies: No Known Allergies (Unverified , 02/05/13) Subjective events noted glucose values improved on insulin gtt Item Value Date Time Bedside Blood Glucose 141 mg/dl H 02/14/19 0600 Bedside Blood Glucose 175 mg/dl H 02/14/19 0200 Bedside Blood Glucose 169 mg/dl H 02/13/19 2200 Bedside Blood Glucose 163 mg/dl H 02/13/19 1800 Bedside Blood Glucose 181 mg/dl H 02/13/19 1241 Bedside Blood Glucose 163 mg/dl H 02/13/19 0900 Objective Last 24 Hour Vital Signs Date Time Temp Pulse Resp B/P (MAP) Pulse Ox O2 Delivery O2 Flow Rate FiO2 02/14/19 06:30 77 24 164/62 (96) 100 02/14/19 06:00 72 24 182/83 (116) 100 02/14/19 06:00 24 Mechanical Ventilator 40 02/14/19 06:00 24 Mechanical Ventilator 40 02/14/19 05:49 151/70 02/14/19 05:49 151/70 02/14/19 05:30 73 24 163/73 (103) 100 02/14/19 05:07 77 25 40 02/14/19 05:00 73 24 151/70 (97) 100 02/14/19 05:00 24 Mechanical Ventilator 40 02/14/19 05:00 24 Mechanical Ventilator 40 02/14/19 04:30 76 24 145/66 (92) 100 02/14/19 04:00 98.3 80 24 167/81 (109) 100 02/14/19 04:00 75 02/14/19 04:00 24 Mechanical Ventilator 40 02/14/19 04:00 24 Mechanical Ventilator 40 02/14/19 04:00 Mechanical Ventilator Mechanical Ventilator Mechanical Ventilator 02/14/19 04:00 40 02/14/19 03:41 24 Mechanical Ventilator 40 02/14/19 03:30 69 24 170/82 (111) 97 02/14/19 03:24 68 24 100 Mechanical Ventilator 40 02/14/19 03:13 65 24 40 02/14/19 03:13 65 24 97 Mechanical Ventilator 40 02/14/19 03:00 67 24 138/64 (88) 98 02/14/19 03:00 24 Mechanical Ventilator 40 02/14/19 03:00 24 Mechanical Ventilator 40 02/14/19 02:30 65 24 130/61 (84) 97 02/14/19 02:00 66 24 131/62 (85) 97 02/14/19 02:00 24 Mechanical Ventilator 40 02/14/19 02:00 24 Mechanical Ventilator 40 02/14/19 01:30 69 24 149/75 (99) 99 02/14/19 01:22 70 24 40 02/14/19 01:00 68 24 135/64 (87) 97 02/14/19 01:00 24 Mechanical Ventilator 40 02/14/19 01:00 24 Mechanical Ventilator 40 02/14/19 00:00 97.8 68 24 150/72 (98) 98 02/14/19 00:00 24 Mechanical Ventilator 40 02/14/19 00:00 24 Mechanical Ventilator 40 02/14/19 00:00 40 02/14/19 00:00 Mechanical Ventilator Mechanical Ventilator Mechanical Ventilator 02/14/19 00:00 68 02/13/19 23:46 133/60 02/13/19 23:46 133/60 02/13/19 23:20 66 24 99 Mechanical Ventilator 40 02/13/19 23:13 68 24 97 Mechanical Ventilator 40 02/13/19 23:12 67 24 40 02/13/19 23:00 67 24 169/80 (109) 97 02/13/19 23:00 24 Mechanical Ventilator 40 02/13/19 23:00 24 Mechanical Ventilator 40 02/13/19 22:04 69 24 40 02/13/19 22:00 67 24 173/82 (112) 96 02/13/19 22:00 24 Mechanical Ventilator 40 02/13/19 22:00 24 Mechanical Ventilator 40 02/13/19 21:00 24 Mechanical Ventilator 40 02/13/19 21:00 24 Mechanical Ventilator 40 02/13/19 21:00 70 24 208/92 (130) 97 02/13/19 20:34 70 159/68 02/13/19 20:00 67 02/13/19 20:00 20 Mechanical Ventilator 40 02/13/19 20:00 24 Mechanical Ventilator 40 02/13/19 20:00 40 02/13/19 20:00 98.0 72 24 153/66 (95) 97 02/13/19 20:00 Mechanical Ventilator Mechanical Ventilator Mechanical Ventilator 02/13/19 19:15 70 24 100 Mechanical Ventilator 40 02/13/19 19:07 69 24 98 Mechanical Ventilator 40 02/13/19 19:04 69 24 40 02/13/19 19:00 70 24 159/68 (98) 100 02/13/19 19:00 24 Endotracheal Tube 40 02/13/19 19:00 24 Mechanical Ventilator 40 02/13/19 18:30 69 24 151/66 (94) 97 02/13/19 18:06 150/61 02/13/19 18:00 24 Mechanical Ventilator 40 02/13/19 18:00 24 Mechanical Ventilator 40 02/13/19 18:00 69 24 150/61 (90) 98 02/13/19 17:30 70 24 153/63 (93) 98 02/13/19 17:18 68 24 40 02/13/19 17:00 70 24 144/64 (90) 98 02/13/19 17:00 24 Mechanical Ventilator 40 02/13/19 17:00 26 Mechanical Ventilator 40 02/13/19 16:55 97.6 02/13/19 16:30 70 24 137/95 (109) 98 02/13/19 16:25 24 Mechanical Ventilator 50.0 40 02/13/19 16:25 24 Mechanical Ventilator 50.0 40 02/13/19 16:00 Mechanical Ventilator Mechanical Ventilator Mechanical Ventilator 02/13/19 16:00 68 02/13/19 16:00 97.8 68 24 140/62 (88) 97 02/13/19 16:00 40 02/13/19 15:30 72 24 206/95 (132) 98 02/13/19 15:28 24 194/95 Mechanical Ventilator 40 02/13/19 15:13 88 24 100 Mechanical Ventilator 40 02/13/19 15:12 81 24 40 02/13/19 15:04 81 24 100 Mechanical Ventilator 40 02/13/19 15:00 85 20 206/95 (132) 93 02/13/19 14:30 81 20 200/86 (124) 93 02/13/19 14:01 182/82 02/13/19 14:00 26 Mechanical Ventilator 40 02/13/19 14:00 91 20 210/88 (128) 93 02/13/19 13:30 82 22 175/73 (107) 96 02/13/19 13:15 74 24 40 02/13/19 13:00 26 Mechanical Ventilator 40 02/13/19 13:00 75 20 160/69 (99) 93 02/13/19 12:31 182/82 02/13/19 12:30 78 20 173/70 (104) 93 02/13/19 12:22 182/82 02/13/19 12:00 91 02/13/19 12:00 26 Endotracheal Tube 40 02/13/19 12:00 24 Mechanical Ventilator 40 02/13/19 12:00 26 Endotracheal Tube 40 02/13/19 12:00 99.6 80 20 132/64 (86) 93 02/13/19 12:00 Mechanical Ventilator Mechanical Ventilator Mechanical Ventilator 02/13/19 12:00 40 02/13/19 11:40 95 31 96 Mechanical Ventilator 40 02/13/19 11:30 95 29 95 Mechanical Ventilator 40 02/13/19 11:20 95 30 40 02/13/19 11:00 78 20 169/78 (108) 93 02/13/19 11:00 26 Mechanical Ventilator 40 02/13/19 10:32 99.3 02/13/19 10:30 24 170/81 Mechanical Ventilator 40 02/13/19 10:30 83 20 188/85 (119) 97 02/13/19 10:02 24 Mechanical Ventilator 50.0 35 02/13/19 10:01 24 155/75 Mechanical Ventilator 50.0 40 02/13/19 10:00 74 24 170/81 (110) 97 02/13/19 10:00 24 170/81 Endotracheal Tube 40 02/13/19 09:30 71 21 145/78 (100) 97 02/13/19 09:00 70 20 150/68 (95) 97 02/13/19 09:00 24 145/67 Endotracheal Tube 40 02/13/19 08:31 75 25 35 02/13/19 08:30 75 20 145/67 (93) 93 02/13/19 08:29 80 132/75 02/13/19 08:28 80 132/75 02/13/19 08:00 81 02/13/19 08:00 75 23 139/66 (90) 96 02/13/19 08:00 40 02/13/19 08:00 22 136/70 Mechanical Ventilator 40 02/13/19 08:00 Mechanical Ventilator Mechanical Ventilator Mechanical Ventilator 02/13/19 07:30 97.8 75 20 136/70 (92) 93 02/13/19 07:00 22 132/75 Mechanical Ventilator 35 02/13/19 07:00 80 20 132/64 (86) 93 Intake and Output 02/13/19 02/14/19 18:59 06:59 Intake Total 1717.446 ml 2910.5 ml Output Total 780 ml 1055 ml Balance 937.446 ml 1855.5 ml Free Water 120 ml 120 ml IV Total 1177.446 ml 2370.5 ml Tube Feeding 420 ml 420 ml Output Urine Total 780 ml 1055 ml Laboratory Tests 02/13/19 08:23: Arterial Blood pH 7.278L, Arterial Blood Partial Pressure CO2 33.1L, Arterial Blood Partial Pressure O2 83.2, Arterial Blood HCO3 15.1*L, Arterial Blood Oxygen Saturation 94.1L, Arterial Blood Base Excess -10.6*L, Benny Test Positive 02/13/19 14:10: Arterial Blood pH 7.162*L, Arterial Blood Partial Pressure CO2 42.8, Arterial Blood Partial Pressure O2 81.1, Arterial Blood HCO3 15.0*L, Arterial Blood Oxygen Saturation 92.4L, Arterial Blood Base Excess -13.0*L, Benny Test Positive 02/13/19 16:10: Arterial Blood pH 7.279L, Arterial Blood Partial Pressure CO2 33.7L, Arterial Blood Partial Pressure O2 71.4L, Arterial Blood HCO3 15.4*L, Arterial Blood Oxygen Saturation 92.2L, Arterial Blood Base Excess -10.3*L, Benny Test Positive 02/14/19 04:30: White Blood Count 6.3, Red Blood Count 3.10L, Hemoglobin 8.5L, Hematocrit 26.4L , Mean Corpuscular Volume 85, Mean Corpuscular Hemoglobin 27.5, Mean Corpuscular Hemoglobin Concent 32.2, Red Cell Distribution Width 18.3H, Platelet Count 224, Mean Platelet Volume 6.4L, Neutrophils (%) (Auto) 75.1H, Lymphocytes (%) (Auto) 15.2L, Monocytes (%) (Auto) 8.9, Eosinophils (%) (Auto) 0.2, Basophils (%) (Auto) 0.6, Sodium Level 144, Potassium Level 4.5, Chloride Level 111H, Carbon Dioxide Level 22, Anion Gap 12, Blood Urea Nitrogen 68H, Creatinine 3.5H, Estimat Glomerular Filtration Rate 18.0, Glucose Level 158H, Uric Acid 6.4, Calcium Level 7.7L, Phosphorus Level 5.3H, Magnesium Level 2.9H, Total Bilirubin 0.3, Gamma Glutamyl Transpeptidase 417H, Aspartate Amino Transf (AST/SGOT) 35, Alanine Aminotransferase (ALT/SGPT) 59, Alkaline Phosphatase 183H , C-Reactive Protein, Quantitative 4.3H, Pro-B-Type Natriuretic Peptide 6855H, Total Protein 5.7L, Albumin 1.9L, Globulin 3.8, Albumin/Globulin Ratio 0.5L, Random Vancomycin Level 14.1 Height (Feet): 6 Height (Inches): 0.00 Weight (Pounds): 213 General Appearance: other - intubated EENT: other - ETT Neck: supple Cardiovascular: tachycardia Respiratory/Chest: decreased breath sounds Abdomen: normal bowel sounds Pelvis: normal external exam Objective Current Medications Medications (Trade) Dose Ordered Sig/Marquis Route PRN Reason Start Time Stop Time Status Last Admin Dose Admin Acetaminophen (Tylenol) 650 mg Q4H PRN ORAL Mild Pain (Pain Scale 1-3) 02/07/19 11:15 03/08/19 17:29 02/07/19 23:01 Acetaminophen/ Butalbital/ Caffeine (Fioricet) 1 tab Q8H PRN ORAL For Headache 02/08/19 17:15 03/10/19 17:14 Albuterol/ Ipratropium (Albuterol/ Ipratropium) 3 ml Q4HRT HHN 02/09/19 15:00 02/14/19 14:59 02/14/19 03:15 Alprazolam (Xanax) 0.5 mg Q6H PRN ORAL For Anxiety 02/08/19 20:15 02/15/19 20:14 02/13/19 14:01 Amlodipine Besylate (Norvasc) 10 mg DAILY NG 02/12/19 16:00 03/14/19 15:59 02/13/19 08:29 Aspirin (Ecotrin) 81 mg DAILY ORAL 02/08/19 09:00 03/09/19 08:59 02/12/19 09:39 Atorvastatin Calcium (Lipitor) 40 mg QHS ORAL 02/08/19 21:00 03/10/19 20:59 02/13/19 20:34 Bisacodyl (Dulcolax) 5 mg DAILYPRN PRN ORAL Constipation 02/08/19 17:15 03/10/19 17:14 02/13/19 20:34 Chlorhexidine Gluconate (Jessy-Hex 2%) 1 applic DAILY@2000 TOPIC 02/13/19 20:00 03/15/19 19:59 02/13/19 20:33 Dextrose (Dextrose 50%) 25 ml Q30M PRN IV HYPOGLYCEMIA 02/11/19 17:15 03/13/19 17:14 Dextrose (Dextrose 50%) 50 ml Q30M PRN IV HYPOGLYCEMIA 02/11/19 17:15 03/13/19 17:14 Docusate Sodium (Colace) 100 mg TID GT 02/12/19 18:00 03/12/19 08:59 02/13/19 18:06 Enoxaparin Sodium (Lovenox) 40 mg Q24H SUBQ 02/07/19 21:00 03/08/19 20:59 02/12/19 20:03 Fentanyl Citrate 2500 mcg/Sodium Chloride 250 ml @ 0 mls/hr Q24H IV 02/13/19 15:45 02/20/19 15:44 02/13/19 16:25 Fluconazole/ Sodium Chloride 100 ml @ 100 mls/hr Q24H IV 02/09/19 18:00 02/16/19 17:59 02/13/19 18:05 Guaifenesin (Mucinex ER) 600 mg TWICE A DAY ORAL 02/07/19 18:00 03/09/19 08:59 02/13/19 18:06 Heparin Sodium/ Sodium Chloride (Heparin 1000 units/500ml Premix) 1,000 unit ONCE PRN IV picc line placement 02/13/19 10:00 02/15/19 09:59 Hydralazine HCl (Apresoline) 25 mg Q4H PRN NG SBP > 160mmHg 02/12/19 16:00 03/08/19 11:14 Hydralazine HCl (Apresoline) 50 mg Q6HR NG 02/14/19 00:00 03/14/19 17:59 02/14/19 05:49 Insulin Human Regular (NovoLIN R) 5 units PRN PRN IV BS 200-299 02/11/19 17:15 03/13/19 17:14 02/14/19 00:02 Insulin Human Regular (NovoLIN R) 10 units PRN PRN IV BS=>300 02/11/19 17:15 03/13/19 17:14 02/13/19 02:05 Insulin Human Regular 100 units/ Sodium Chloride 100 ml @ 0 mls/hr Q24H IV 02/12/19 10:42 03/14/19 10:41 02/14/19 01:29 Isosorbide Dinitrate (Isordil) 10 mg Q6HR NG 02/13/19 13:00 03/15/19 12:59 02/14/19 05:49 Lansoprazole (Prevacid) 30 mg BID NG 02/12/19 18:00 03/14/19 17:59 02/13/19 18:06 Lidocaine HCl (Xylocaine 1% 30ml) 30 ml ONCE PRN INJ picc line placement 02/13/19 10:00 02/15/19 09:59 Methylprednisolone Sodium Succinate (Solu-MEDROL) 30 mg EVERY 12 HOURS IVP 02/13/19 21:00 03/12/19 20:59 02/13/19 20:33 Metoprolol Tartrate (Lopressor) 100 mg Q12HR ORAL 02/07/19 21:00 03/08/19 20:59 02/13/19 20:34 Midazolam HCl (Versed 2mg/2ml vial) 1 mg Q2H PRN IVP Agitation 02/13/19 08:45 03/15/19 08:44 02/14/19 05:49 Midazolam HCl 50 mg/Sodium Chloride 100 ml @ 0 mls/hr Q24H IV 02/13/19 15:45 02/20/19 15:44 02/14/19 03:41 Miscellaneous Medication (Insulin Rate Change) 1 ea PRN PRN MISC Per rx protocol 02/11/19 17:15 03/13/19 17:14 02/13/19 20:18 Nitroglycerin (Ntg) 0.4 mg Q5M PRN SL Prn Chest Pain 02/07/19 11:00 03/08/19 17:29 02/08/19 07:42 Ondansetron HCl (Zofran) 4 mg Q6H PRN IVP Nausea & Vomiting 02/07/19 11:15 03/08/19 11:14 02/09/19 00:58 Patient Own Medication (Patient's Own Med) 1 ea BID ORAL 02/07/19 18:00 03/09/19 17:59 02/13/19 18:06 Patient Own Medication (Patient's Own Med) 1 ea Q72H ORAL 02/16/19 09:00 03/15/19 08:59 Patient Own Medication (Patient's Own Med) 2 ea DAILY ORAL 02/08/19 09:00 03/10/19 08:59 02/13/19 08:27 Piperacillin Sod/ Tazobactam Sod 3.375 gm/Sodium Chloride 110 ml @ 27.5 mls/hr Q12HR@0600,1800 IVPB 02/11/19 18:00 02/18/19 17:59 02/14/19 05:49 Polyethylene Glycol (Miralax) 17 gm BEDTIME ORAL 02/08/19 21:00 03/10/19 20:59 02/13/19 20:33 Sennosides (Senokot) 8.6 mg DAILY ORAL 02/13/19 12:00 03/15/19 11:59 02/13/19 12:27 Sodium Bicarbonate 150 ml/Sodium Chloride 1,150 ml @ 100 mls/hr [id number] IV 02/13/19 18:00 03/15/19 17:59 02/14/19 05:50 Sodium Citrate (Bicitra) 30 ml EVERY 6 HOURS NG 02/13/19 12:15 03/15/19 12:14 02/14/19 05:49 Trimethoprim/ Sulfamethoxazole 25 ml/Dextrose 575 ml @ 383.333 mls/hr Q12HR@0000,1200 IV 02/11/19 12:00 02/18/19 11:59 02/13/19 23:46 Vancomycin HCl (Vanco rx to dose) 1 ea DAILY PRN MISC . 02/10/19 19:45 03/12/19 19:44 Vancomycin HCl/ Dextrose 275 ml @ 183.333 mls/hr ONCE ONCE IVPB 02/14/19 08:00 02/14/19 09:29 Carlito Nichols MD Feb 14, 2019 06:44
--- NOTE | 2019-02-14 07:00 | NUR ---
HAND-OFF: Report given to Suze Case RN.
--- NOTE | 2019-02-14 07:15 | NUR ---
NURSE NOTES: Received pt from TESSA Najera. pt is lightly sedated, RASS -2. Orally intubated ETT AC 24/TV 600/Fio2 40%/PEEP 5, RR 24, SPo2 100%, non labored even breathing. Rhonchi bilateral b/s, moderate thin white secretions.João cath on left femoral, RFA 20G, LW 20G, LAC 20G running Versed at 6mg/hr, Fentanyl 100mcg/hr, insulin gtt @5.5u/hr, 1/2NS w/150ml sodiuim bicarb@100cc/hr. Generalized edema. SR on child monitor. OGT clamped, stopped feeding due to abdominal distension 20cc residual noted, hob 35 degrees. bilateral wrist restraints in place, skin intact and warm to touch. FC draining well to gravity. No BM, OB to be collected. Bed locked, alarmed and in lowest position. Will continue plan of care.
--- NOTE | 2019-02-14 07:16 | NUR ---
RESPIRATORY NOTE: received pt orally intubated with ETT 7.5, placed 25cm at the lip secured via anchor fast. OPA in place to prevent pt biting on the tube. slight redness and dry lips are visible. pt is on current vent settings with no signs of resp distress. vent alarms are audible and set appropriately. ambu bag at bedside and will cont to monitor.
[2019-02-14] MEDS ORDERED: Vancomycin 1.25gm Premix IVPB ONE (08:00)
[2019-02-14] MEDS: Docusate 100mg/10ml Liq GT SCH ×3 (08:41→17:41)
[2019-02-14] MEDS: RALTEGRAVIR 400 MG ORAL SCH ×2 (08:41→17:42)
[2019-02-14] MEDS: ETRAVIRINE 200 MG ORAL SCH (08:41)
[2019-02-14] MEDS: Solu-MEDROL 40mg Inj IVP SCH ×2 (08:42→20:49)
[2019-02-14] MEDS: Sennosides 8.6mg tab ORAL SCH (08:42)
[2019-02-14] MEDS: Aspirin EC 81mg tab ORAL SCH (08:42)
[2019-02-14] MEDS: guaiFENesin ER 600mg tab ORAL SCH ×2 (08:42→17:38)
--- NOTE | 2019-02-14 10:01 | NUR ---
NURSE NOTES: Turned and repositioned. Large BM passed. Blood sugar 136 mg/dL, continue insulin drip @ 4 units/hr. Lightly sedated, RASS -2.
--- NOTE | 2019-02-14 10:49 | Nephrology Progress Note ---
Assessment/Plan Problem List: (1) ISH (acute kidney injury) (2) HIV (human immunodeficiency virus infection) (3) NSTEMI (non-ST elevated myocardial infarction) (4) Hypoxia (5) Anemia (6) Diabetes Assessment Acute Renal failure- Cr leveling- Urine out put is good Acidosis improved Acute respiratory failure- Require intubation and Mechanical Ventilation- Anemia- Elevated troponin / VT HTN DM HIV Antibody + Plan Bicarb in IV UA and urine studies Avoid Nephrotoxics as possible Monitor renal parameters keep BP and BS in check Per orders No HD at this time Kidney RADHA noted adjust BP meds add Isordil Subjective ROS Limited/Unobtainable: Yes Objective Objective Last 24 Hour Vital Signs Date Time Temp Pulse Resp B/P (MAP) Pulse Ox O2 Delivery O2 Flow Rate FiO2 02/14/19 10:47 75 24 96 Mechanical Ventilator 40 02/14/19 10:39 70 24 40 02/14/19 09:00 24 Mechanical Ventilator 40 02/14/19 09:00 24 Mechanical Ventilator 40 02/14/19 08:51 76 24 40 02/14/19 08:42 70 138/64 02/14/19 08:42 70 138/64 02/14/19 08:00 81 02/14/19 08:00 Mechanical Ventilator Mechanical Ventilator Mechanical Ventilator 02/14/19 08:00 40 02/14/19 08:00 24 Mechanical Ventilator 40 02/14/19 08:00 24 Mechanical Ventilator 40 02/14/19 07:15 70 24 98 Mechanical Ventilator 40 02/14/19 07:00 74 24 138/64 (88) 100 02/14/19 07:00 24 Mechanical Ventilator 40 02/14/19 07:00 24 40 02/14/19 06:56 77 25 98 Mechanical Ventilator 40 02/14/19 06:52 72 24 40 02/14/19 06:30 77 24 164/62 (96) 100 02/14/19 06:00 72 24 182/83 (116) 100 02/14/19 06:00 24 Mechanical Ventilator 40 02/14/19 06:00 24 Mechanical Ventilator 40 02/14/19 05:49 151/70 02/14/19 05:49 151/70 02/14/19 05:30 73 24 163/73 (103) 100 02/14/19 05:07 77 25 40 02/14/19 05:00 73 24 151/70 (97) 100 02/14/19 05:00 24 Mechanical Ventilator 40 02/14/19 05:00 24 Mechanical Ventilator 40 02/14/19 04:30 76 24 145/66 (92) 100 02/14/19 04:00 98.3 80 24 167/81 (109) 100 02/14/19 04:00 75 02/14/19 04:00 24 Mechanical Ventilator 40 02/14/19 04:00 24 Mechanical Ventilator 40 02/14/19 04:00 Mechanical Ventilator Mechanical Ventilator Mechanical Ventilator 02/14/19 04:00 40 02/14/19 03:41 24 Mechanical Ventilator 40 02/14/19 03:30 69 24 170/82 (111) 97 02/14/19 03:24 68 24 100 Mechanical Ventilator 40 02/14/19 03:13 65 24 40 02/14/19 03:13 65 24 97 Mechanical Ventilator 40 02/14/19 03:00 67 24 138/64 (88) 98 02/14/19 03:00 24 Mechanical Ventilator 40 02/14/19 03:00 24 Mechanical Ventilator 40 02/14/19 02:30 65 24 130/61 (84) 97 02/14/19 02:00 66 24 131/62 (85) 97 02/14/19 02:00 24 Mechanical Ventilator 40 02/14/19 02:00 24 Mechanical Ventilator 40 02/14/19 01:30 69 24 149/75 (99) 99 02/14/19 01:22 70 24 40 02/14/19 01:00 68 24 135/64 (87) 97 02/14/19 01:00 24 Mechanical Ventilator 40 02/14/19 01:00 24 Mechanical Ventilator 40 02/14/19 00:00 97.8 68 24 150/72 (98) 98 02/14/19 00:00 24 Mechanical Ventilator 40 02/14/19 00:00 24 Mechanical Ventilator 40 02/14/19 00:00 40 02/14/19 00:00 Mechanical Ventilator Mechanical Ventilator Mechanical Ventilator 02/14/19 00:00 68 02/13/19 23:46 133/60 02/13/19 23:46 133/60 02/13/19 23:20 66 24 99 Mechanical Ventilator 40 02/13/19 23:13 68 24 97 Mechanical Ventilator 40 02/13/19 23:12 67 24 40 02/13/19 23:00 67 24 169/80 (109) 97 02/13/19 23:00 24 Mechanical Ventilator 40 02/13/19 23:00 24 Mechanical Ventilator 40 02/13/19 22:04 69 24 40 02/13/19 22:00 67 24 173/82 (112) 96 02/13/19 22:00 24 Mechanical Ventilator 40 02/13/19 22:00 24 Mechanical Ventilator 40 02/13/19 21:00 24 Mechanical Ventilator 40 02/13/19 21:00 24 Mechanical Ventilator 40 02/13/19 21:00 70 24 208/92 (130) 97 02/13/19 20:34 70 159/68 02/13/19 20:00 67 02/13/19 20:00 20 Mechanical Ventilator 40 02/13/19 20:00 24 Mechanical Ventilator 40 02/13/19 20:00 40 02/13/19 20:00 98.0 72 24 153/66 (95) 97 02/13/19 20:00 Mechanical Ventilator Mechanical Ventilator Mechanical Ventilator 02/13/19 19:15 70 24 100 Mechanical Ventilator 40 02/13/19 19:07 69 24 98 Mechanical Ventilator 40 02/13/19 19:04 69 24 40 02/13/19 19:00 70 24 159/68 (98) 100 02/13/19 19:00 24 Endotracheal Tube 40 02/13/19 19:00 24 Mechanical Ventilator 40 02/13/19 18:30 69 24 151/66 (94) 97 02/13/19 18:06 150/61 02/13/19 18:00 24 Mechanical Ventilator 40 02/13/19 18:00 24 Mechanical Ventilator 40 02/13/19 18:00 69 24 150/61 (90) 98 02/13/19 17:30 70 24 153/63 (93) 98 02/13/19 17:18 68 24 40 02/13/19 17:00 70 24 144/64 (90) 98 02/13/19 17:00 24 Mechanical Ventilator 40 02/13/19 17:00 26 Mechanical Ventilator 40 02/13/19 16:55 97.6 02/13/19 16:30 70 24 137/95 (109) 98 02/13/19 16:25 24 Mechanical Ventilator 50.0 40 02/13/19 16:25 24 Mechanical Ventilator 50.0 40 02/13/19 16:00 Mechanical Ventilator Mechanical Ventilator Mechanical Ventilator 02/13/19 16:00 68 02/13/19 16:00 97.8 68 24 140/62 (88) 97 02/13/19 16:00 40 02/13/19 15:30 72 24 206/95 (132) 98 02/13/19 15:28 24 194/95 Mechanical Ventilator 40 02/13/19 15:13 88 24 100 Mechanical Ventilator 40 02/13/19 15:12 81 24 40 02/13/19 15:04 81 24 100 Mechanical Ventilator 40 02/13/19 15:00 85 20 206/95 (132) 93 02/13/19 14:30 81 20 200/86 (124) 93 02/13/19 14:01 182/82 02/13/19 14:00 26 Mechanical Ventilator 40 02/13/19 14:00 91 20 210/88 (128) 93 02/13/19 13:30 82 22 175/73 (107) 96 02/13/19 13:15 74 24 40 02/13/19 13:00 26 Mechanical Ventilator 40 02/13/19 13:00 75 20 160/69 (99) 93 02/13/19 12:31 182/82 02/13/19 12:30 78 20 173/70 (104) 93 02/13/19 12:22 182/82 02/13/19 12:00 91 02/13/19 12:00 26 Endotracheal Tube 40 02/13/19 12:00 24 Mechanical Ventilator 40 02/13/19 12:00 26 Endotracheal Tube 40 02/13/19 12:00 99.6 80 20 132/64 (86) 93 02/13/19 12:00 Mechanical Ventilator Mechanical Ventilator Mechanical Ventilator 02/13/19 12:00 40 02/13/19 11:40 95 31 96 Mechanical Ventilator 40 02/13/19 11:30 95 29 95 Mechanical Ventilator 40 02/13/19 11:20 95 30 40 02/13/19 11:00 78 20 169/78 (108) 93 02/13/19 11:00 26 Mechanical Ventilator 40 Intake and Output 02/13/19 02/14/19 18:59 06:59 Intake Total 1717.446 ml 2910.5 ml Output Total 780 ml 1055 ml Balance 937.446 ml 1855.5 ml Free Water 120 ml 120 ml IV Total 1177.446 ml 2370.5 ml Tube Feeding 420 ml 420 ml Output Urine Total 780 ml 1055 ml Laboratory Tests 02/13/19 14:10: Arterial Blood pH 7.162*L, Arterial Blood Partial Pressure CO2 42.8, Arterial Blood Partial Pressure O2 81.1, Arterial Blood HCO3 15.0*L, Arterial Blood Oxygen Saturation 92.4L, Arterial Blood Base Excess -13.0*L, Benyn Test Positive 02/13/19 16:10: Arterial Blood pH 7.279L, Arterial Blood Partial Pressure CO2 33.7L, Arterial Blood Partial Pressure O2 71.4L, Arterial Blood HCO3 15.4*L, Arterial Blood Oxygen Saturation 92.2L, Arterial Blood Base Excess -10.3*L, Benny Test Positive 02/14/19 04:30: White Blood Count 6.3, Red Blood Count 3.10L, Hemoglobin 8.5L, Hematocrit 26.4L , Mean Corpuscular Volume 85, Mean Corpuscular Hemoglobin 27.5, Mean Corpuscular Hemoglobin Concent 32.2, Red Cell Distribution Width 18.3H, Platelet Count 224, Mean Platelet Volume 6.4L, Neutrophils (%) (Auto) 75.1H, Lymphocytes (%) (Auto) 15.2L, Monocytes (%) (Auto) 8.9, Eosinophils (%) (Auto) 0.2, Basophils (%) (Auto) 0.6, Sodium Level 144, Potassium Level 4.5, Chloride Level 111H, Carbon Dioxide Level 22, Anion Gap 12, Blood Urea Nitrogen 68H, Creatinine 3.5H, Estimat Glomerular Filtration Rate 18.0, Glucose Level 158H, Uric Acid 6.4, Calcium Level 7.7L, Phosphorus Level 5.3H, Magnesium Level 2.9H, Total Bilirubin 0.3, Gamma Glutamyl Transpeptidase 417H, Aspartate Amino Transf (AST/SGOT) 35, Alanine Aminotransferase (ALT/SGPT) 59, Alkaline Phosphatase 183H , C-Reactive Protein, Quantitative 4.3H, Pro-B-Type Natriuretic Peptide 6855H, Total Protein 5.7L, Albumin 1.9L, Globulin 3.8, Albumin/Globulin Ratio 0.5L, Random Vancomycin Level 14.1 02/14/19 07:20: Arterial Blood pH 7.366, Arterial Blood Partial Pressure CO2 33.5L, Arterial Blood Partial Pressure O2 71.2L, Arterial Blood HCO3 18.8L, Arterial Blood Oxygen Saturation 92.5L, Arterial Blood Base Excess -5.9L, Benny Test Positive Height (Feet): 6 Height (Inches): 0.00 Weight (Pounds): 213 General Appearance: no apparent distress Cardiovascular: normal rate Respiratory/Chest: decreased breath sounds Abdomen: distended Mike Mcdonald MD Feb 14, 2019 10:49
--- NOTE | 2019-02-14 12:11 | Cardiac Electrophysiology PN ---
Assessment/Plan Assessment/Plan 1. Non-ST elevation myocardial infarction with peak troponin of more than 10. Down to 2 , up to 7 and down to 3.5 again . EKG shows nonspecific ST-T wave abnormalities. Consider cardiac catheterization after stabilized. Continue aspirin, Lipitor, Imdur and metoprolol 100 mg b.i.d. 2. Hypertension. Continue metoprolol 100 mg b.i.d., Imdur 30 mg daily and hydralazine 50 q 6hr. 3. Respiratory failure due to Multilobar Pneumonia. Off respiratory isolation per Dr. Mitchell 4. Hyperlipidemia. On Lipitor. 5. Human immunodeficiency virus. On anti-retroviral therapy with undetectable viral load. 6. Agitation on Fentanyl and Versed drip 7. ARF Cr 3.5. Losartan DCed DW RN Subjective Subjective In ICU on the vent. Off pressors. On insulin drip and Fentanyl drip at 100 mg/ hr and Versed drip at 4 mg/hr Objective Last 24 Hour Vital Signs Date Time Temp Pulse Resp B/P (MAP) Pulse Ox O2 Delivery O2 Flow Rate FiO2 02/14/19 11:30 69 24 129/55 (79) 100 02/14/19 11:00 70 24 129/54 (79) 93 02/14/19 10:47 75 24 96 Mechanical Ventilator 40 02/14/19 10:39 70 24 40 02/14/19 10:38 70 24 96 Mechanical Ventilator 40 02/14/19 10:30 71 24 135/58 (83) 94 02/14/19 10:00 71 24 164/71 (102) 96 02/14/19 09:30 65 24 130/59 (82) 96 02/14/19 09:00 67 24 130/59 (82) 97 02/14/19 09:00 24 Mechanical Ventilator 40 02/14/19 09:00 24 Mechanical Ventilator 40 02/14/19 08:51 76 24 40 02/14/19 08:42 70 138/64 02/14/19 08:42 70 138/64 02/14/19 08:30 70 24 135/60 (85) 97 02/14/19 08:00 81 02/14/19 08:00 Mechanical Ventilator Mechanical Ventilator Mechanical Ventilator 02/14/19 08:00 40 02/14/19 08:00 24 Mechanical Ventilator 40 02/14/19 08:00 24 Mechanical Ventilator 40 02/14/19 08:00 68 24 128/55 (79) 96 02/14/19 07:30 96.7 71 24 127/54 (78) 98 02/14/19 07:15 70 24 98 Mechanical Ventilator 40 02/14/19 07:00 74 24 138/64 (88) 100 02/14/19 07:00 24 Mechanical Ventilator 40 02/14/19 07:00 24 40 02/14/19 06:56 77 25 98 Mechanical Ventilator 40 02/14/19 06:52 72 24 40 02/14/19 06:30 77 24 164/62 (96) 100 02/14/19 06:00 72 24 182/83 (116) 100 02/14/19 06:00 24 Mechanical Ventilator 40 02/14/19 06:00 24 Mechanical Ventilator 40 02/14/19 05:49 151/70 02/14/19 05:49 151/70 02/14/19 05:30 73 24 163/73 (103) 100 02/14/19 05:07 77 25 40 02/14/19 05:00 73 24 151/70 (97) 100 02/14/19 05:00 24 Mechanical Ventilator 40 02/14/19 05:00 24 Mechanical Ventilator 40 02/14/19 04:30 76 24 145/66 (92) 100 02/14/19 04:00 98.3 80 24 167/81 (109) 100 02/14/19 04:00 75 02/14/19 04:00 24 Mechanical Ventilator 40 02/14/19 04:00 24 Mechanical Ventilator 40 02/14/19 04:00 Mechanical Ventilator Mechanical Ventilator Mechanical Ventilator 02/14/19 04:00 40 02/14/19 03:41 24 Mechanical Ventilator 40 02/14/19 03:30 69 24 170/82 (111) 97 02/14/19 03:24 68 24 100 Mechanical Ventilator 40 02/14/19 03:13 65 24 40 02/14/19 03:13 65 24 97 Mechanical Ventilator 40 02/14/19 03:00 67 24 138/64 (88) 98 02/14/19 03:00 24 Mechanical Ventilator 40 02/14/19 03:00 24 Mechanical Ventilator 40 02/14/19 02:30 65 24 130/61 (84) 97 02/14/19 02:00 66 24 131/62 (85) 97 02/14/19 02:00 24 Mechanical Ventilator 40 02/14/19 02:00 24 Mechanical Ventilator 40 02/14/19 01:30 69 24 149/75 (99) 99 02/14/19 01:22 70 24 40 02/14/19 01:00 68 24 135/64 (87) 97 02/14/19 01:00 24 Mechanical Ventilator 40 02/14/19 01:00 24 Mechanical Ventilator 40 02/14/19 00:00 97.8 68 24 150/72 (98) 98 02/14/19 00:00 24 Mechanical Ventilator 40 02/14/19 00:00 24 Mechanical Ventilator 40 02/14/19 00:00 40 02/14/19 00:00 Mechanical Ventilator Mechanical Ventilator Mechanical Ventilator 02/14/19 00:00 68 02/13/19 23:46 133/60 02/13/19 23:46 133/60 02/13/19 23:20 66 24 99 Mechanical Ventilator 40 02/13/19 23:13 68 24 97 Mechanical Ventilator 40 02/13/19 23:12 67 24 40 02/13/19 23:00 67 24 169/80 (109) 97 02/13/19 23:00 24 Mechanical Ventilator 40 02/13/19 23:00 24 Mechanical Ventilator 40 02/13/19 22:04 69 24 40 02/13/19 22:00 67 24 173/82 (112) 96 02/13/19 22:00 24 Mechanical Ventilator 40 02/13/19 22:00 24 Mechanical Ventilator 40 02/13/19 21:00 24 Mechanical Ventilator 40 02/13/19 21:00 24 Mechanical Ventilator 40 02/13/19 21:00 70 24 208/92 (130) 97 02/13/19 20:34 70 159/68 02/13/19 20:00 67 02/13/19 20:00 20 Mechanical Ventilator 40 02/13/19 20:00 24 Mechanical Ventilator 40 02/13/19 20:00 40 02/13/19 20:00 98.0 72 24 153/66 (95) 97 02/13/19 20:00 Mechanical Ventilator Mechanical Ventilator Mechanical Ventilator 02/13/19 19:15 70 24 100 Mechanical Ventilator 40 02/13/19 19:07 69 24 98 Mechanical Ventilator 40 02/13/19 19:04 69 24 40 02/13/19 19:00 70 24 159/68 (98) 100 02/13/19 19:00 24 Endotracheal Tube 40 02/13/19 19:00 24 Mechanical Ventilator 40 02/13/19 18:30 69 24 151/66 (94) 97 02/13/19 18:06 150/61 02/13/19 18:00 24 Mechanical Ventilator 40 02/13/19 18:00 24 Mechanical Ventilator 40 02/13/19 18:00 69 24 150/61 (90) 98 02/13/19 17:30 70 24 153/63 (93) 98 02/13/19 17:18 68 24 40 02/13/19 17:00 70 24 144/64 (90) 98 02/13/19 17:00 24 Mechanical Ventilator 40 02/13/19 17:00 26 Mechanical Ventilator 40 02/13/19 16:55 97.6 02/13/19 16:30 70 24 137/95 (109) 98 02/13/19 16:25 24 Mechanical Ventilator 50.0 40 02/13/19 16:25 24 Mechanical Ventilator 50.0 40 02/13/19 16:00 Mechanical Ventilator Mechanical Ventilator Mechanical Ventilator 02/13/19 16:00 68 02/13/19 16:00 97.8 68 24 140/62 (88) 97 02/13/19 16:00 40 02/13/19 15:30 72 24 206/95 (132) 98 02/13/19 15:28 24 194/95 Mechanical Ventilator 40 02/13/19 15:13 88 24 100 Mechanical Ventilator 40 02/13/19 15:12 81 24 40 02/13/19 15:04 81 24 100 Mechanical Ventilator 40 02/13/19 15:00 85 20 206/95 (132) 93 02/13/19 14:30 81 20 200/86 (124) 93 02/13/19 14:01 182/82 02/13/19 14:00 26 Mechanical Ventilator 40 02/13/19 14:00 91 20 210/88 (128) 93 02/13/19 13:30 82 22 175/73 (107) 96 02/13/19 13:15 74 24 40 02/13/19 13:00 26 Mechanical Ventilator 40 02/13/19 13:00 75 20 160/69 (99) 93 02/13/19 12:31 182/82 02/13/19 12:30 78 20 173/70 (104) 93 02/13/19 12:22 18282 Intake and Output 02/13/19 02/14/19 19:00 07:00 Intake Total 1679.919 ml 2906.0 ml Output Total 820 ml 1030 ml Balance 859.919 ml 1876.0 ml Free Water 120 ml 120 ml IV Total 1139.919 ml 2366.0 ml Tube Feeding 420 ml 420 ml Output Urine Total 820 ml 1030 ml Laboratory Tests Test 02/13/19 14:10 02/13/19 16:10 02/14/19 04:30 02/14/19 07:20 Arterial Blood pH 7.162 (7.350-7.450) 7.279 (7.350-7.450) 7.366 (7.350-7.450) Arterial Blood Partial Pressure CO2 42.8 mmHg (35.0-45.0) 33.7 mmHg (35.0-45.0) L 33.5 mmHg (35.0-45.0) L Arterial Blood Partial Pressure O2 81.1 mmHg (75.0-100.0) 71.4 mmHg (75.0-100.0) L 71.2 mmHg (75.0-100.0) L Arterial Blood HCO3 15.0 mmol/L (22.0-26.0) *L 15.4 mmol/L (22.0-26.0) *L 18.8 mmol/L (22.0-26.0) L Arterial Blood Oxygen Saturation 92.4 % (95-100) L 92.2 % (95-100) L 92.5 % (95-100) L Arterial Blood Base Excess -13.0 (-2-2) *L -10.3 (-2-2) *L -5.9 (-2-2) L Benny Test Positive Positive Positive White Blood Count 6.3 K/UL (4.8-10.8) Red Blood Count 3.10 M/UL (4.70-6.10) L Hemoglobin 8.5 G/DL (14.2-18.0) L Hematocrit 26.4 % (42.0-52.0) L Mean Corpuscular Volume 85 FL (80-99) Mean Corpuscular Hemoglobin 27.5 PG (27.0-31.0) Mean Corpuscular Hemoglobin Concent 32.2 G/DL (32.0-36.0) Red Cell Distribution Width 18.3 % (11.6-14.8) H Platelet Count 224 K/UL (150-450) Mean Platelet Volume 6.4 FL (6.5-10.1) L Neutrophils (%) (Auto) 75.1 % (45.0-75.0) H Lymphocytes (%) (Auto) 15.2 % (20.0-45.0) L Monocytes (%) (Auto) 8.9 % (1.0-10.0) Eosinophils (%) (Auto) 0.2 % (0.0-3.0) Basophils (%) (Auto) 0.6 % (0.0-2.0) Sodium Level 144 MMOL/L (136-145) Potassium Level 4.5 MMOL/L (3.5-5.1) Chloride Level 111 MMOL/L (98-107) H Carbon Dioxide Level 22 MMOL/L (21-32) Anion Gap 12 mmol/L (5-15) Blood Urea Nitrogen 68 mg/dL (7-18) H Creatinine 3.5 MG/DL (0.55-1.30) H Estimat Glomerular Filtration Rate 18.0 mL/min (>60) Glucose Level 158 MG/DL (74-106) H Uric Acid 6.4 MG/DL (2.6-7.2) Calcium Level 7.7 MG/DL (8.5-10.1) L Phosphorus Level 5.3 MG/DL (2.5-4.9) H Magnesium Level 2.9 MG/DL (1.8-2.4) H Total Bilirubin 0.3 MG/DL (0.2-1.0) Gamma Glutamyl Transpeptidase 417 U/L (5-85) H Aspartate Amino Transf (AST/SGOT) 35 U/L (15-37) Alanine Aminotransferase (ALT/SGPT) 59 U/L (12-78) Alkaline Phosphatase 183 U/L (46-116) H C-Reactive Protein, Quantitative 4.3 mg/dL (0.00-0.90) H Pro-B-Type Natriuretic Peptide 6855 pg/mL (0-125) H Total Protein 5.7 G/DL (6.4-8.2) L Albumin 1.9 G/DL (3.4-5.0) L Globulin 3.8 g/dL Albumin/Globulin Ratio 0.5 (1.0-2.7) L Random Vancomycin Level 14.1 ug/mL Objective HEAD AND NECK: No JVD.Orally intubated LUNGS: Coarse rhonchi. CARDIOVASCULAR: Regular S1 and S2 with no gallop or murmur. ABDOMEN: Soft. EXTREMITIES: No pitting edema. Murray Francois MD Feb 14, 2019 12:10
[2019-02-14] MEDS: TRIMETHOPRIM IV SCH ×2 (12:21→23:40)
[2019-02-14] MEDS: SULFAMETHOXAZOLE IV SCH ×2 (12:21→23:40)
[2019-02-14] MEDS: D5W IV SCH ×2 (12:21→23:40)
--- NOTE | 2019-02-14 12:41 | NUR ---
NURSE NOTES: Oral care done, turned and repositioned. Kept dry and clean. lightly sedated RASS -2.
--- NOTE | 2019-02-14 13:20 | Pulmonolgy Critical Care Note ---
Critical Care - Asmt/Plan Problems: (1) Endotracheally intubated (2) Acute hypoxemic respiratory failure (3) Pneumonia (4) NSTEMI (non-ST elevated myocardial infarction) (5) AIDS (6) HIV disease (7) Hypertension (8) MDD (major depressive disorder), recurrent episode, moderate (9) Anemia (10) CKD (chronic kidney disease) (11) History of stroke (12) Diabetes (13) Anxiety (14) Malignant hypertension Assessment/Plan: VDRF ARDS Acute respiratory failure B pulmonary infiltrates, ? multilobar CAP vs atypical infection vs other ? PJP AIDS (CD4 191) NSTEMI H/O prior CVA HTN HL DM with uncontrolled BS ISH on CKD Anemia PLAN: Continue current vent settings AC 24 TV 600 PEEP 5, titrate FiO2 to keep SaO2 > 92% RTC and PRN HHN's Continue Abx per ID (Zosyn, Vanco, TMP-SMX) + flucon per ID F/U Cx's and BAL studies Continue SM 30 IV BID Monitor volumes and renal function, HCO3- gtt, may need HD F/U cards recs: ASA, statin, ARB, per cards hold off on IVUH, continue LMWH Px, will need further ischemia eval/cath once stabilized DVT Px: LMWH Continue insulin gtt, F/U ENDO recs ICU sedation: Fent/Versed FC D/W RV @ bedside Time Spent (Minutes): 50 Notes 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, 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, 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, ID Discussed with: nurses, consultants Critical Care - Objective Last 24 Hour Vital Signs Date Time Temp Pulse Resp B/P (MAP) Pulse Ox O2 Delivery O2 Flow Rate FiO2 02/14/19 13:09 77 24 40 02/14/19 12:21 129/55 02/14/19 12:21 24 Mechanical Ventilator 50.0 40 02/14/19 12:20 129/55 02/14/19 12:00 40 02/14/19 12:00 75 02/14/19 12:00 Mechanical Ventilator Mechanical Ventilator Mechanical Ventilator 02/14/19 11:30 69 24 129/55 (79) 100 02/14/19 11:00 70 24 129/54 (79) 93 02/14/19 10:47 75 24 96 Mechanical Ventilator 40 02/14/19 10:39 70 24 40 02/14/19 10:38 70 24 96 Mechanical Ventilator 40 02/14/19 10:30 71 24 135/58 (83) 94 02/14/19 10:00 71 24 164/71 (102) 96 02/14/19 09:30 65 24 130/59 (82) 96 02/14/19 09:00 67 24 130/59 (82) 97 02/14/19 09:00 24 Mechanical Ventilator 40 02/14/19 09:00 24 Mechanical Ventilator 40 02/14/19 08:51 76 24 40 02/14/19 08:42 70 138/64 02/14/19 08:42 70 138/64 02/14/19 08:30 70 24 135/60 (85) 97 02/14/19 08:00 81 02/14/19 08:00 Mechanical Ventilator Mechanical Ventilator Mechanical Ventilator 02/14/19 08:00 40 02/14/19 08:00 24 Mechanical Ventilator 40 02/14/19 08:00 24 Mechanical Ventilator 40 02/14/19 08:00 68 24 128/55 (79) 96 02/14/19 07:30 96.7 71 24 127/54 (78) 98 02/14/19 07:15 70 24 98 Mechanical Ventilator 40 02/14/19 07:00 74 24 138/64 (88) 100 02/14/19 07:00 24 Mechanical Ventilator 40 02/14/19 07:00 24 40 02/14/19 06:56 77 25 98 Mechanical Ventilator 40 02/14/19 06:52 72 24 40 02/14/19 06:30 77 24 164/62 (96) 100 02/14/19 06:00 72 24 182/83 (116) 100 02/14/19 06:00 24 Mechanical Ventilator 40 02/14/19 06:00 24 Mechanical Ventilator 40 02/14/19 05:49 151/70 02/14/19 05:49 151/70 02/14/19 05:30 73 24 163/73 (103) 100 02/14/19 05:07 77 25 40 02/14/19 05:00 73 24 151/70 (97) 100 02/14/19 05:00 24 Mechanical Ventilator 40 02/14/19 05:00 24 Mechanical Ventilator 40 02/14/19 04:30 76 24 145/66 (92) 100 02/14/19 04:00 98.3 80 24 167/81 (109) 100 02/14/19 04:00 75 02/14/19 04:00 24 Mechanical Ventilator 40 02/14/19 04:00 24 Mechanical Ventilator 40 02/14/19 04:00 Mechanical Ventilator Mechanical Ventilator Mechanical Ventilator 02/14/19 04:00 40 02/14/19 03:41 24 Mechanical Ventilator 40 02/14/19 03:30 69 24 170/82 (111) 97 02/14/19 03:24 68 24 100 Mechanical Ventilator 40 02/14/19 03:13 65 24 40 02/14/19 03:13 65 24 97 Mechanical Ventilator 40 02/14/19 03:00 67 24 138/64 (88) 98 02/14/19 03:00 24 Mechanical Ventilator 40 02/14/19 03:00 24 Mechanical Ventilator 40 02/14/19 02:30 65 24 130/61 (84) 97 02/14/19 02:00 66 24 131/62 (85) 97 02/14/19 02:00 24 Mechanical Ventilator 40 02/14/19 02:00 24 Mechanical Ventilator 40 02/14/19 01:30 69 24 149/75 (99) 99 02/14/19 01:22 70 24 40 02/14/19 01:00 68 24 135/64 (87) 97 02/14/19 01:00 24 Mechanical Ventilator 40 02/14/19 01:00 24 Mechanical Ventilator 40 02/14/19 00:00 97.8 68 24 150/72 (98) 98 02/14/19 00:00 24 Mechanical Ventilator 40 02/14/19 00:00 24 Mechanical Ventilator 40 02/14/19 00:00 40 02/14/19 00:00 Mechanical Ventilator Mechanical Ventilator Mechanical Ventilator 02/14/19 00:00 68 02/13/19 23:46 133/60 02/13/19 23:46 133/60 02/13/19 23:20 66 24 99 Mechanical Ventilator 40 02/13/19 23:13 68 24 97 Mechanical Ventilator 40 02/13/19 23:12 67 24 40 02/13/19 23:00 67 24 169/80 (109) 97 02/13/19 23:00 24 Mechanical Ventilator 40 02/13/19 23:00 24 Mechanical Ventilator 40 02/13/19 22:04 69 24 40 02/13/19 22:00 67 24 173/82 (112) 96 02/13/19 22:00 24 Mechanical Ventilator 40 02/13/19 22:00 24 Mechanical Ventilator 40 02/13/19 21:00 24 Mechanical Ventilator 40 02/13/19 21:00 24 Mechanical Ventilator 40 02/13/19 21:00 70 24 208/92 (130) 97 02/13/19 20:34 70 159/68 02/13/19 20:00 67 02/13/19 20:00 20 Mechanical Ventilator 40 02/13/19 20:00 24 Mechanical Ventilator 40 02/13/19 20:00 40 02/13/19 20:00 98.0 72 24 153/66 (95) 97 02/13/19 20:00 Mechanical Ventilator Mechanical Ventilator Mechanical Ventilator 02/13/19 19:15 70 24 100 Mechanical Ventilator 40 02/13/19 19:07 69 24 98 Mechanical Ventilator 40 02/13/19 19:04 69 24 40 02/13/19 19:00 70 24 159/68 (98) 100 02/13/19 19:00 24 Endotracheal Tube 40 02/13/19 19:00 24 Mechanical Ventilator 40 02/13/19 18:30 69 24 151/66 (94) 97 02/13/19 18:06 150/61 02/13/19 18:00 24 Mechanical Ventilator 40 02/13/19 18:00 24 Mechanical Ventilator 40 02/13/19 18:00 69 24 150/61 (90) 98 02/13/19 17:30 70 24 153/63 (93) 98 02/13/19 17:18 68 24 40 02/13/19 17:00 70 24 144/64 (90) 98 02/13/19 17:00 24 Mechanical Ventilator 40 02/13/19 17:00 26 Mechanical Ventilator 40 02/13/19 16:55 97.6 02/13/19 16:30 70 24 137/95 (109) 98 02/13/19 16:25 24 Mechanical Ventilator 50.0 40 02/13/19 16:25 24 Mechanical Ventilator 50.0 40 02/13/19 16:00 Mechanical Ventilator Mechanical Ventilator Mechanical Ventilator 02/13/19 16:00 68 02/13/19 16:00 97.8 68 24 140/62 (88) 97 02/13/19 16:00 40 02/13/19 15:30 72 24 206/95 (132) 98 02/13/19 15:28 24 194/95 Mechanical Ventilator 40 02/13/19 15:13 88 24 100 Mechanical Ventilator 40 02/13/19 15:12 81 24 40 02/13/19 15:04 81 24 100 Mechanical Ventilator 40 02/13/19 15:00 85 20 206/95 (132) 93 02/13/19 14:30 81 20 200/86 (124) 93 02/13/19 14:01 182/82 02/13/19 14:00 26 Mechanical Ventilator 40 02/13/19 14:00 91 20 210/88 (128) 93 02/13/19 13:30 82 22 175/73 (107) 96 Status: sedated, other - intubated Condition: critical HEENT: atraumatic, normocephalic, other - ETT OGT Lungs: rhonchi Heart: HR/BP stable Abdomen: soft, non-tender, active bowel sounds Extremities: no C/C/E Accucheck: 143 Blood Sugars: BS controlled Critical Care - Subjective ROS Limited/Unobtainable: Yes ICU Day: 9 Intubation Day: 7 Interval Events: HD line placed but gas exchange improved with HCO3- gtt Stable on vent Cr better Condition: critical IV Access: PICC, central EKG Rhythm: Sinus Rhythm FI02: 40 Vent Support Breath Rate: 24 Vent Support Mode: AC Vent Tidal Volume: 600 Sputum Amount: Small PEEP: 5.0 PIP: 38 Tube Feeding Amount: 35 I&O: Intake and Output 02/13/19 02/14/19 19:00 07:00 Intake Total 1679.919 ml 2906.0 ml Output Total 820 ml 1030 ml Balance 859.919 ml 1876.0 ml Free Water 120 ml 120 ml IV Total 1139.919 ml 2366.0 ml Tube Feeding 420 ml 420 ml Output Urine Total 820 ml 1030 ml Subjective: Sedated on fent/versed ET-Tube: 7.5 ET Position: 25 Labs: Laboratory Tests Test 02/13/19 14:10 02/13/19 16:10 02/14/19 04:30 02/14/19 07:20 Arterial Blood pH 7.162 (7.350-7.450) 7.279 (7.350-7.450) 7.366 (7.350-7.450) Arterial Blood Partial Pressure CO2 42.8 mmHg (35.0-45.0) 33.7 mmHg (35.0-45.0) L 33.5 mmHg (35.0-45.0) L Arterial Blood Partial Pressure O2 81.1 mmHg (75.0-100.0) 71.4 mmHg (75.0-100.0) L 71.2 mmHg (75.0-100.0) L Arterial Blood HCO3 15.0 mmol/L (22.0-26.0) *L 15.4 mmol/L (22.0-26.0) *L 18.8 mmol/L (22.0-26.0) L Arterial Blood Oxygen Saturation 92.4 % (95-100) L 92.2 % (95-100) L 92.5 % (95-100) L Arterial Blood Base Excess -13.0 (-2-2) *L -10.3 (-2-2) *L -5.9 (-2-2) L Benny Test Positive Positive Positive White Blood Count 6.3 K/UL (4.8-10.8) Red Blood Count 3.10 M/UL (4.70-6.10) L Hemoglobin 8.5 G/DL (14.2-18.0) L Hematocrit 26.4 % (42.0-52.0) L Mean Corpuscular Volume 85 FL (80-99) Mean Corpuscular Hemoglobin 27.5 PG (27.0-31.0) Mean Corpuscular Hemoglobin Concent 32.2 G/DL (32.0-36.0) Red Cell Distribution Width 18.3 % (11.6-14.8) H Platelet Count 224 K/UL (150-450) Mean Platelet Volume 6.4 FL (6.5-10.1) L Neutrophils (%) (Auto) 75.1 % (45.0-75.0) H Lymphocytes (%) (Auto) 15.2 % (20.0-45.0) L Monocytes (%) (Auto) 8.9 % (1.0-10.0) Eosinophils (%) (Auto) 0.2 % (0.0-3.0) Basophils (%) (Auto) 0.6 % (0.0-2.0) Sodium Level 144 MMOL/L (136-145) Potassium Level 4.5 MMOL/L (3.5-5.1) Chloride Level 111 MMOL/L (98-107) H Carbon Dioxide Level 22 MMOL/L (21-32) Anion Gap 12 mmol/L (5-15) Blood Urea Nitrogen 68 mg/dL (7-18) H Creatinine 3.5 MG/DL (0.55-1.30) H Estimat Glomerular Filtration Rate 18.0 mL/min (>60) Glucose Level 158 MG/DL (74-106) H Uric Acid 6.4 MG/DL (2.6-7.2) Calcium Level 7.7 MG/DL (8.5-10.1) L Phosphorus Level 5.3 MG/DL (2.5-4.9) H Magnesium Level 2.9 MG/DL (1.8-2.4) H Total Bilirubin 0.3 MG/DL (0.2-1.0) Gamma Glutamyl Transpeptidase 417 U/L (5-85) H Aspartate Amino Transf (AST/SGOT) 35 U/L (15-37) Alanine Aminotransferase (ALT/SGPT) 59 U/L (12-78) Alkaline Phosphatase 183 U/L (46-116) H C-Reactive Protein, Quantitative 4.3 mg/dL (0.00-0.90) H Pro-B-Type Natriuretic Peptide 6855 pg/mL (0-125) H Total Protein 5.7 G/DL (6.4-8.2) L Albumin 1.9 G/DL (3.4-5.0) L Globulin 3.8 g/dL Albumin/Globulin Ratio 0.5 (1.0-2.7) L Random Vancomycin Level 14.1 ug/mL Brett Meredith MD Feb 14, 2019 13:20
--- NOTE | 2019-02-14 13:21 | Infectious Diseases Prog Note ---
Assessment/Plan Assessment/Plan A) 1) pneumonia - ? etiology, ? CAP, ? pcp, ? fungal (cryptococcus/cocci), possible sepsis now, ards 2) intubated on vent, s/p bronchoscopy, ARF, ? 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 Meredith and we both agree that still could be pneumocystis pna and to continue bactrim 4) monitor labs and chest x-ray 5) critical condition, icu supportive care, vent support 6) d/w RN and pharmacy 7) d/w Dr. Meredith Subjective Constitutional: Reports: fatigue, other - on vent, no pressors HEENT: Reports: congestion Respiratory: Reports: shortness of breath Cardiovascular: Reports: other - no pressors Gastrointestinal/Abdominal: Denies: nausea, vomiting, diarrhea Genitourinary: Reports: other - + smith Neurologic: Reports: other - sedated Psychiatric: Denies: depression Skin: Denies: rash Hematologic: Denies: bleeding Musculoskeletal: Denies: pain Allergies: Coded Allergies: No Known Allergies (Unverified , 02/05/13) Objective Vital Signs Last 24 Hour Vital Signs Date Time Temp Pulse Resp B/P (MAP) Pulse Ox O2 Delivery O2 Flow Rate FiO2 02/14/19 12:21 129/55 02/14/19 12:21 24 Mechanical Ventilator 50.0 40 02/14/19 12:20 129/55 02/14/19 12:00 40 02/14/19 12:00 75 02/14/19 12:00 Mechanical Ventilator Mechanical Ventilator Mechanical Ventilator 02/14/19 11:30 69 24 129/55 (79) 100 02/14/19 11:00 70 24 129/54 (79) 93 02/14/19 10:47 75 24 96 Mechanical Ventilator 40 02/14/19 10:39 70 24 40 02/14/19 10:38 70 24 96 Mechanical Ventilator 40 02/14/19 10:30 71 24 135/58 (83) 94 02/14/19 10:00 71 24 164/71 (102) 96 02/14/19 09:30 65 24 130/59 (82) 96 02/14/19 09:00 67 24 130/59 (82) 97 02/14/19 09:00 24 Mechanical Ventilator 40 02/14/19 09:00 24 Mechanical Ventilator 40 02/14/19 08:51 76 24 40 02/14/19 08:42 70 138/64 02/14/19 08:42 70 138/64 02/14/19 08:30 70 24 135/60 (85) 97 02/14/19 08:00 81 02/14/19 08:00 Mechanical Ventilator Mechanical Ventilator Mechanical Ventilator 02/14/19 08:00 40 02/14/19 08:00 24 Mechanical Ventilator 40 02/14/19 08:00 24 Mechanical Ventilator 40 02/14/19 08:00 68 24 128/55 (79) 96 02/14/19 07:30 96.7 71 24 127/54 (78) 98 02/14/19 07:15 70 24 98 Mechanical Ventilator 40 02/14/19 07:00 74 24 138/64 (88) 100 02/14/19 07:00 24 Mechanical Ventilator 40 02/14/19 07:00 24 40 02/14/19 06:56 77 25 98 Mechanical Ventilator 40 02/14/19 06:52 72 24 40 02/14/19 06:30 77 24 164/62 (96) 100 02/14/19 06:00 72 24 182/83 (116) 100 02/14/19 06:00 24 Mechanical Ventilator 40 02/14/19 06:00 24 Mechanical Ventilator 40 02/14/19 05:49 151/70 02/14/19 05:49 151/70 02/14/19 05:30 73 24 163/73 (103) 100 02/14/19 05:07 77 25 40 02/14/19 05:00 73 24 151/70 (97) 100 02/14/19 05:00 24 Mechanical Ventilator 40 02/14/19 05:00 24 Mechanical Ventilator 40 02/14/19 04:30 76 24 145/66 (92) 100 02/14/19 04:00 98.3 80 24 167/81 (109) 100 02/14/19 04:00 75 02/14/19 04:00 24 Mechanical Ventilator 40 02/14/19 04:00 24 Mechanical Ventilator 40 02/14/19 04:00 Mechanical Ventilator Mechanical Ventilator Mechanical Ventilator 02/14/19 04:00 40 02/14/19 03:41 24 Mechanical Ventilator 40 02/14/19 03:30 69 24 170/82 (111) 97 02/14/19 03:24 68 24 100 Mechanical Ventilator 40 02/14/19 03:13 65 24 40 02/14/19 03:13 65 24 97 Mechanical Ventilator 40 02/14/19 03:00 67 24 138/64 (88) 98 02/14/19 03:00 24 Mechanical Ventilator 40 02/14/19 03:00 24 Mechanical Ventilator 40 02/14/19 02:30 65 24 130/61 (84) 97 02/14/19 02:00 66 24 131/62 (85) 97 02/14/19 02:00 24 Mechanical Ventilator 40 02/14/19 02:00 24 Mechanical Ventilator 40 02/14/19 01:30 69 24 149/75 (99) 99 02/14/19 01:22 70 24 40 02/14/19 01:00 68 24 135/64 (87) 97 02/14/19 01:00 24 Mechanical Ventilator 40 02/14/19 01:00 24 Mechanical Ventilator 40 02/14/19 00:00 97.8 68 24 150/72 (98) 98 02/14/19 00:00 24 Mechanical Ventilator 40 02/14/19 00:00 24 Mechanical Ventilator 40 02/14/19 00:00 40 02/14/19 00:00 Mechanical Ventilator Mechanical Ventilator Mechanical Ventilator 02/14/19 00:00 68 02/13/19 23:46 133/60 02/13/19 23:46 133/60 02/13/19 23:20 66 24 99 Mechanical Ventilator 40 02/13/19 23:13 68 24 97 Mechanical Ventilator 40 02/13/19 23:12 67 24 40 02/13/19 23:00 67 24 169/80 (109) 97 02/13/19 23:00 24 Mechanical Ventilator 40 02/13/19 23:00 24 Mechanical Ventilator 40 02/13/19 22:04 69 24 40 6/25/19 22:00 67 24 173/82 (112) 96 02/13/19 22:00 24 Mechanical Ventilator 40 02/13/19 22:00 24 Mechanical Ventilator 40 02/13/19 21:00 24 Mechanical Ventilator 40 02/13/19 21:00 24 Mechanical Ventilator 40 02/13/19 21:00 70 24 208/92 (130) 97 02/13/19 20:34 70 159/68 02/13/19 20:00 67 02/13/19 20:00 20 Mechanical Ventilator 40 02/13/19 20:00 24 Mechanical Ventilator 40 02/13/19 20:00 40 02/13/19 20:00 98.0 72 24 153/66 (95) 97 02/13/19 20:00 Mechanical Ventilator Mechanical Ventilator Mechanical Ventilator 02/13/19 19:15 70 24 100 Mechanical Ventilator 40 02/13/19 19:07 69 24 98 Mechanical Ventilator 40 02/13/19 19:04 69 24 40 02/13/19 19:00 70 24 159/68 (98) 100 02/13/19 19:00 24 Endotracheal Tube 40 02/13/19 19:00 24 Mechanical Ventilator 40 02/13/19 18:30 69 24 151/66 (94) 97 02/13/19 18:06 150/61 02/13/19 18:00 24 Mechanical Ventilator 40 02/13/19 18:00 24 Mechanical Ventilator 40 02/13/19 18:00 69 24 150/61 (90) 98 02/13/19 17:30 70 24 153/63 (93) 98 02/13/19 17:18 68 24 40 02/13/19 17:00 70 24 144/64 (90) 98 02/13/19 17:00 24 Mechanical Ventilator 40 02/13/19 17:00 26 Mechanical Ventilator 40 02/13/19 16:55 97.6 02/13/19 16:30 70 24 137/95 (109) 98 02/13/19 16:25 24 Mechanical Ventilator 50.0 40 02/13/19 16:25 24 Mechanical Ventilator 50.0 40 02/13/19 16:00 Mechanical Ventilator Mechanical Ventilator Mechanical Ventilator 02/13/19 16:00 68 02/13/19 16:00 97.8 68 24 140/62 (88) 97 02/13/19 16:00 40 02/13/19 15:30 72 24 206/95 (132) 98 02/13/19 15:28 24 194/95 Mechanical Ventilator 40 02/13/19 15:13 88 24 100 Mechanical Ventilator 40 02/13/19 15:12 81 24 40 02/13/19 15:04 81 24 100 Mechanical Ventilator 40 02/13/19 15:00 85 20 206/95 (132) 93 02/13/19 14:30 81 20 200/86 (124) 93 02/13/19 14:01 182/82 02/13/19 14:00 26 Mechanical Ventilator 40 02/13/19 14:00 91 20 210/88 (128) 93 02/13/19 13:30 82 22 175/73 (107) 96 02/13/19 13:15 74 24 40 Height (Feet): 6 Height (Inches): 0.00 Weight (Pounds): 213 General Appearance: other - on vent, no pressors HEENT: normocephalic, atraumatic, anicteric, no JVD, other - oral - intubated Respiratory/Chest: crackles/rales, rhonchi - bilaterally Cardiovascular: normal rate, regular rhythm, no gallop/murmur, no JVD Abdomen: normal bowel sounds, soft, non tender, no organomegaly Genitourinary: other - + smith -urine dark Extremities: no cyanosis Skin: no rash Neurologic/Psychiatric: other - sedated, on vent, weak Lymphatic: no neck adenopathy Musculoskeletal: no effusion Objective Chest x-ray - 02/10/19 - COMPARISON: Chest radiograph on 02/09/2019 FINDINGS: Hardware: Endotracheal tube terminates in the region of the mid thoracic trachea. Enteric tube courses past the diaphragm and out of the field of view. Lungs/pleura: Slightly decreased but persistent patchy consolidations in the right lung. Slightly decreased left perihilar opacities/consolidations. Possible small bilateral pleural effusions. Heart/mediastinum: Stable mild enlargement of the cardiomediastinal silhouette. Soft tissues: Unremarkable. Bones: No acute fracture. Degenerative changes of the visualized right acromioclavicular joint. Degenerative changes of the spine. Upper abdomen: Normal. 02/11/19 - chest x-ray - IMPRESSION: Slightly decreased but persistent patchy consolidations in the right lung. Slightly decreased left perihilar opacities. Findings may IMPRESSION: 1. No significant change in the interstitial and alveolar opacities in bilateral lungs. 2. Possible small bilateral pleural effusions, unchanged. represent infectious/inflammatory process and/or pulmonary edema. Possible small bilateral pleural effusions. Microbiology Date/Time Source Procedure Growth Status 02/06/19 14:15 Blood Blood Culture - Final NO GROWTH AFTER 5 DAYS Complete 02/09/19 14:45 Sputum Expectorated Virus Culture - Preliminary Resulted 02/09/19 14:45 Sputum Expectorated Pneumocystis jiroveci Smear (DFA) - Final Resulted 02/06/19 17:10 Rectal Mucosa - Final NO CARBAPENEM-RESISTANT ENTEROBACTERI... Complete cultures - negative pneumocystis - negative Laboratory Tests Test 02/13/19 14:10 02/13/19 16:10 02/14/19 04:30 02/14/19 07:20 Arterial Blood pH 7.162 (7.350-7.450) 7.279 (7.350-7.450) 7.366 (7.350-7.450) Arterial Blood Partial Pressure CO2 42.8 mmHg (35.0-45.0) 33.7 mmHg (35.0-45.0) L 33.5 mmHg (35.0-45.0) L Arterial Blood Partial Pressure O2 81.1 mmHg (75.0-100.0) 71.4 mmHg (75.0-100.0) L 71.2 mmHg (75.0-100.0) L Arterial Blood HCO3 15.0 mmol/L (22.0-26.0) *L 15.4 mmol/L (22.0-26.0) *L 18.8 mmol/L (22.0-26.0) L Arterial Blood Oxygen Saturation 92.4 % (95-100) L 92.2 % (95-100) L 92.5 % (95-100) L Arterial Blood Base Excess -13.0 (-2-2) *L -10.3 (-2-2) *L -5.9 (-2-2) L Benny Test Positive Positive Positive White Blood Count 6.3 K/UL (4.8-10.8) Red Blood Count 3.10 M/UL (4.70-6.10) L Hemoglobin 8.5 G/DL (14.2-18.0) L Hematocrit 26.4 % (42.0-52.0) L Mean Corpuscular Volume 85 FL (80-99) Mean Corpuscular Hemoglobin 27.5 PG (27.0-31.0) Mean Corpuscular Hemoglobin Concent 32.2 G/DL (32.0-36.0) Red Cell Distribution Width 18.3 % (11.6-14.8) H Platelet Count 224 K/UL (150-450) Mean Platelet Volume 6.4 FL (6.5-10.1) L Neutrophils (%) (Auto) 75.1 % (45.0-75.0) H Lymphocytes (%) (Auto) 15.2 % (20.0-45.0) L Monocytes (%) (Auto) 8.9 % (1.0-10.0) Eosinophils (%) (Auto) 0.2 % (0.0-3.0) Basophils (%) (Auto) 0.6 % (0.0-2.0) Sodium Level 144 MMOL/L (136-145) Potassium Level 4.5 MMOL/L (3.5-5.1) Chloride Level 111 MMOL/L (98-107) H Carbon Dioxide Level 22 MMOL/L (21-32) Anion Gap 12 mmol/L (5-15) Blood Urea Nitrogen 68 mg/dL (7-18) H Creatinine 3.5 MG/DL (0.55-1.30) H Estimat Glomerular Filtration Rate 18.0 mL/min (>60) Glucose Level 158 MG/DL (74-106) H Uric Acid 6.4 MG/DL (2.6-7.2) Calcium Level 7.7 MG/DL (8.5-10.1) L Phosphorus Level 5.3 MG/DL (2.5-4.9) H Magnesium Level 2.9 MG/DL (1.8-2.4) H Total Bilirubin 0.3 MG/DL (0.2-1.0) Gamma Glutamyl Transpeptidase 417 U/L (5-85) H Aspartate Amino Transf (AST/SGOT) 35 U/L (15-37) Alanine Aminotransferase (ALT/SGPT) 59 U/L (12-78) Alkaline Phosphatase 183 U/L (46-116) H C-Reactive Protein, Quantitative 4.3 mg/dL (0.00-0.90) H Pro-B-Type Natriuretic Peptide 6855 pg/mL (0-125) H Total Protein 5.7 G/DL (6.4-8.2) L Albumin 1.9 G/DL (3.4-5.0) L Globulin 3.8 g/dL Albumin/Globulin Ratio 0.5 (1.0-2.7) L Random Vancomycin Level 14.1 ug/mL Current Medications Medications (Trade) Dose Ordered Sig/Marquis Route PRN Reason Start Time Stop Time Status Last Admin Dose Admin Acetaminophen (Tylenol) 650 mg Q4H PRN ORAL Mild Pain (Pain Scale 1-3) 02/07/19 11:15 03/08/19 17:29 02/07/19 23:01 Acetaminophen/ Butalbital/ Caffeine (Fioricet) 1 tab Q8H PRN ORAL For Headache 02/08/19 17:15 03/10/19 17:14 Albuterol/ Ipratropium (Albuterol/ Ipratropium) 3 ml Q4HRT HHN 02/09/19 15:00 02/14/19 14:59 02/14/19 10:38 Alprazolam (Xanax) 0.5 mg Q6H PRN ORAL For Anxiety 02/08/19 20:15 02/15/19 20:14 02/13/19 14:01 Amlodipine Besylate (Norvasc) 10 mg DAILY NG 02/15/19 09:00 03/14/19 15:59 Aspirin (Ecotrin) 81 mg DAILY ORAL 02/08/19 09:00 03/09/19 08:59 02/14/19 08:42 Atorvastatin Calcium (Lipitor) 40 mg QHS ORAL 02/08/19 21:00 03/10/19 20:59 02/13/19 20:34 Bisacodyl (Dulcolax) 5 mg DAILYPRN PRN ORAL Constipation 02/08/19 17:15 03/10/19 17:14 02/13/19 20:34 Chlorhexidine Gluconate (Jessy-Hex 2%) 1 applic DAILY@2000 TOPIC 02/13/19 20:00 03/15/19 19:59 02/13/19 20:33 Dextrose (Dextrose 50%) 25 ml Q30M PRN IV HYPOGLYCEMIA 02/11/19 17:15 03/13/19 17:14 Dextrose (Dextrose 50%) 50 ml Q30M PRN IV HYPOGLYCEMIA 02/11/19 17:15 03/13/19 17:14 Docusate Sodium (Colace) 100 mg TID GT 02/12/19 18:00 03/12/19 08:59 02/14/19 12:20 Enoxaparin Sodium (Lovenox) 40 mg Q24H SUBQ 02/07/19 21:00 03/08/19 20:59 02/12/19 20:03 Fentanyl Citrate 2500 mcg/Sodium Chloride 250 ml @ 0 mls/hr Q24H IV 02/13/19 15:45 02/20/19 15:44 02/13/19 16:25 Fluconazole/ Sodium Chloride 100 ml @ 100 mls/hr Q24H IV 02/09/19 18:00 02/16/19 17:59 02/13/19 18:05 Guaifenesin (Mucinex ER) 600 mg TWICE A DAY ORAL 02/07/19 18:00 03/09/19 08:59 02/14/19 08:42 Heparin Sodium/ Sodium Chloride (Heparin 1000 units/500ml Premix) 1,000 unit ONCE PRN IV picc line placement 02/13/19 10:00 02/15/19 09:59 Hydralazine HCl (Apresoline) 25 mg Q4H PRN NG SBP > 160mmHg 02/12/19 16:00 03/08/19 11:14 Hydralazine HCl (Apresoline) 50 mg Q6HR NG 02/14/19 00:00 03/14/19 17:59 02/14/19 12:21 Insulin Human Regular (NovoLIN R) 5 units PRN PRN IV BS 200-299 02/11/19 17:15 03/13/19 17:14 02/14/19 00:02 Insulin Human Regular (NovoLIN R) 10 units PRN PRN IV BS=>300 02/11/19 17:15 03/13/19 17:14 02/13/19 02:05 Insulin Human Regular 100 units/ Sodium Chloride 100 ml @ 0 mls/hr Q24H IV 02/12/19 10:42 03/14/19 10:41 02/14/19 01:29 Isosorbide Dinitrate (Isordil) 10 mg Q6HR NG 02/13/19 13:00 03/15/19 12:59 02/14/19 12:20 Lansoprazole (Prevacid) 30 mg BID NG 02/12/19 18:00 03/14/19 17:59 02/14/19 08:42 Lidocaine HCl (Xylocaine 1% 30ml) 30 ml ONCE PRN INJ picc line placement 02/13/19 10:00 02/15/19 09:59 Methylprednisolone Sodium Succinate (Solu-MEDROL) 30 mg EVERY 12 HOURS IVP 02/13/19 21:00 03/12/19 20:59 02/14/19 08:42 Metoprolol Tartrate (Lopressor) 100 mg Q12HR ORAL 02/07/19 21:00 03/08/19 20:59 02/14/19 08:42 Midazolam HCl (Versed 2mg/2ml vial) 1 mg Q2H PRN IVP Agitation 02/13/19 08:45 03/15/19 08:44 02/14/19 05:49 Midazolam HCl 50 mg/Sodium Chloride 100 ml @ 0 mls/hr Q24H IV 02/13/19 15:45 02/20/19 15:44 02/14/19 12:21 Miscellaneous Medication (Insulin Rate Change) 1 ea PRN PRN MISC Per rx protocol 02/11/19 17:15 03/13/19 17:14 02/13/19 20:18 Nitroglycerin (Ntg) 0.4 mg Q5M PRN SL Prn Chest Pain 02/07/19 11:00 03/08/19 17:29 02/08/19 07:42 Ondansetron HCl (Zofran) 4 mg Q6H PRN IVP Nausea & Vomiting 02/07/19 11:15 03/08/19 11:14 02/09/19 00:58 Patient Own Medication (Patient's Own Med) 1 ea BID ORAL 02/07/19 18:00 03/09/19 17:59 02/14/19 08:41 Patient Own Medication (Patient's Own Med) 1 ea Q72H ORAL 02/16/19 09:00 03/15/19 08:59 Patient Own Medication (Patient's Own Med) 2 ea DAILY ORAL 02/08/19 09:00 03/10/19 08:59 02/14/19 08:41 Piperacillin Sod/ Tazobactam Sod 3.375 gm/Sodium Chloride 110 ml @ 27.5 mls/hr Q12HR@0600,1800 IVPB 02/11/19 18:00 02/18/19 17:59 02/14/19 05:49 Polyethylene Glycol (Miralax) 17 gm BEDTIME ORAL 02/08/19 21:00 03/10/19 20:59 02/13/19 20:33 Sennosides (Senokot) 8.6 mg DAILY ORAL 02/13/19 12:00 03/15/19 11:59 02/14/19 08:42 Sodium Bicarbonate 150 ml/Sodium Chloride 1,150 ml @ 100 mls/hr [id number] IV 02/13/19 18:00 03/15/19 17:59 02/14/19 05:50 Sodium Citrate (Bicitra) 30 ml EVERY 6 HOURS NG 02/13/19 12:15 03/15/19 12:14 02/14/19 12:20 Trimethoprim/ Sulfamethoxazole 25 ml/Dextrose 575 ml @ 383.333 mls/hr Q12HR@0000,1200 IV 02/11/19 12:00 02/18/19 11:59 02/14/19 12:21 Vancomycin HCl (Vanco rx to dose) 1 ea DAILY PRN MISC . 02/10/19 19:45 03/12/19 19:44 Russ Tony MD Feb 14, 2019 13:21
--- NOTE | 2019-02-14 13:54 | Surgery Progress Note ---
Surgery Progress Note Subjective Procedure Performed left femoral temporary Hemodialysis catheter insertion Additional Comments ill appearing in ICU more anasarca today labs noted gas improved Objective Last 24 Hour Vital Signs Date Time Temp Pulse Resp B/P (MAP) Pulse Ox O2 Delivery O2 Flow Rate FiO2 02/14/19 13:09 77 24 40 02/14/19 12:21 129/55 02/14/19 12:21 24 Mechanical Ventilator 50.0 40 02/14/19 12:20 129/55 02/14/19 12:00 40 02/14/19 12:00 75 02/14/19 12:00 Mechanical Ventilator Mechanical Ventilator Mechanical Ventilator 02/14/19 11:30 69 24 129/55 (79) 100 02/14/19 11:00 70 24 129/54 (79) 93 02/14/19 10:47 75 24 96 Mechanical Ventilator 40 02/14/19 10:39 70 24 40 02/14/19 10:38 70 24 96 Mechanical Ventilator 40 02/14/19 10:30 71 24 135/58 (83) 94 02/14/19 10:00 71 24 164/71 (102) 96 02/14/19 09:30 65 24 130/59 (82) 96 02/14/19 09:00 67 24 130/59 (82) 97 02/14/19 09:00 24 Mechanical Ventilator 40 02/14/19 09:00 24 Mechanical Ventilator 40 02/14/19 08:51 76 24 40 02/14/19 08:42 70 138/64 02/14/19 08:42 70 138/64 02/14/19 08:30 70 24 135/60 (85) 97 02/14/19 08:00 81 02/14/19 08:00 Mechanical Ventilator Mechanical Ventilator Mechanical Ventilator 02/14/19 08:00 40 02/14/19 08:00 24 Mechanical Ventilator 40 02/14/19 08:00 24 Mechanical Ventilator 40 02/14/19 08:00 68 24 128/55 (79) 96 02/14/19 07:30 96.7 71 24 127/54 (78) 98 02/14/19 07:15 70 24 98 Mechanical Ventilator 40 02/14/19 07:00 74 24 138/64 (88) 100 02/14/19 07:00 24 Mechanical Ventilator 40 02/14/19 07:00 24 40 02/14/19 06:56 77 25 98 Mechanical Ventilator 40 02/14/19 06:52 72 24 40 02/14/19 06:30 77 24 164/62 (96) 100 02/14/19 06:00 72 24 182/83 (116) 100 02/14/19 06:00 24 Mechanical Ventilator 40 02/14/19 06:00 24 Mechanical Ventilator 40 02/14/19 05:49 151/70 02/14/19 05:49 151/70 02/14/19 05:30 73 24 163/73 (103) 100 02/14/19 05:07 77 25 40 02/14/19 05:00 73 24 151/70 (97) 100 02/14/19 05:00 24 Mechanical Ventilator 40 02/14/19 05:00 24 Mechanical Ventilator 40 02/14/19 04:30 76 24 145/66 (92) 100 02/14/19 04:00 98.3 80 24 167/81 (109) 100 02/14/19 04:00 75 02/14/19 04:00 24 Mechanical Ventilator 40 02/14/19 04:00 24 Mechanical Ventilator 40 02/14/19 04:00 Mechanical Ventilator Mechanical Ventilator Mechanical Ventilator 02/14/19 04:00 40 02/14/19 03:41 24 Mechanical Ventilator 40 02/14/19 03:30 69 24 170/82 (111) 97 02/14/19 03:24 68 24 100 Mechanical Ventilator 40 02/14/19 03:13 65 24 40 02/14/19 03:13 65 24 97 Mechanical Ventilator 40 02/14/19 03:00 67 24 138/64 (88) 98 02/14/19 03:00 24 Mechanical Ventilator 40 02/14/19 03:00 24 Mechanical Ventilator 40 02/14/19 02:30 65 24 130/61 (84) 97 02/14/19 02:00 66 24 131/62 (85) 97 02/14/19 02:00 24 Mechanical Ventilator 40 02/14/19 02:00 24 Mechanical Ventilator 40 02/14/19 01:30 69 24 149/75 (99) 99 02/14/19 01:22 70 24 40 02/14/19 01:00 68 24 135/64 (87) 97 02/14/19 01:00 24 Mechanical Ventilator 40 02/14/19 01:00 24 Mechanical Ventilator 40 02/14/19 00:00 97.8 68 24 150/72 (98) 98 02/14/19 00:00 24 Mechanical Ventilator 40 02/14/19 00:00 24 Mechanical Ventilator 40 02/14/19 00:00 40 02/14/19 00:00 Mechanical Ventilator Mechanical Ventilator Mechanical Ventilator 02/14/19 00:00 68 02/13/19 23:46 133/60 02/13/19 23:46 133/60 02/13/19 23:20 66 24 99 Mechanical Ventilator 40 02/13/19 23:13 68 24 97 Mechanical Ventilator 40 02/13/19 23:12 67 24 40 02/13/19 23:00 67 24 169/80 (109) 97 02/13/19 23:00 24 Mechanical Ventilator 40 02/13/19 23:00 24 Mechanical Ventilator 40 02/13/19 22:04 69 24 40 02/13/19 22:00 67 24 173/82 (112) 96 02/13/19 22:00 24 Mechanical Ventilator 40 02/13/19 22:00 24 Mechanical Ventilator 40 02/13/19 21:00 24 Mechanical Ventilator 40 02/13/19 21:00 24 Mechanical Ventilator 40 02/13/19 21:00 70 24 208/92 (130) 97 02/13/19 20:34 70 159/68 02/13/19 20:00 67 02/13/19 20:00 20 Mechanical Ventilator 40 02/13/19 20:00 24 Mechanical Ventilator 40 02/13/19 20:00 40 02/13/19 20:00 98.0 72 24 153/66 (95) 97 02/13/19 20:00 Mechanical Ventilator Mechanical Ventilator Mechanical Ventilator 02/13/19 19:15 70 24 100 Mechanical Ventilator 40 02/13/19 19:07 69 24 98 Mechanical Ventilator 40 02/13/19 19:04 69 24 40 02/13/19 19:00 70 24 159/68 (98) 100 02/13/19 19:00 24 Endotracheal Tube 40 02/13/19 19:00 24 Mechanical Ventilator 40 02/13/19 18:30 69 24 151/66 (94) 97 02/13/19 18:06 150/61 02/13/19 18:00 24 Mechanical Ventilator 40 02/13/19 18:00 24 Mechanical Ventilator 40 02/13/19 18:00 69 24 150/61 (90) 98 02/13/19 17:30 70 24 153/63 (93) 98 02/13/19 17:18 68 24 40 02/13/19 17:00 70 24 144/64 (90) 98 02/13/19 17:00 24 Mechanical Ventilator 40 02/13/19 17:00 26 Mechanical Ventilator 40 02/13/19 16:55 97.6 02/13/19 16:30 70 24 137/95 (109) 98 02/13/19 16:25 24 Mechanical Ventilator 50.0 40 02/13/19 16:25 24 Mechanical Ventilator 50.0 40 02/13/19 16:00 Mechanical Ventilator Mechanical Ventilator Mechanical Ventilator 02/13/19 16:00 68 02/13/19 16:00 97.8 68 24 140/62 (88) 97 02/13/19 16:00 40 02/13/19 15:30 72 24 206/95 (132) 98 02/13/19 15:28 24 194/95 Mechanical Ventilator 40 02/13/19 15:13 88 24 100 Mechanical Ventilator 40 02/13/19 15:12 81 24 40 02/13/19 15:04 81 24 100 Mechanical Ventilator 40 02/13/19 15:00 85 20 206/95 (132) 93 02/13/19 14:30 81 20 200/86 (124) 93 02/13/19 14:01 182/82 02/13/19 14:00 26 Mechanical Ventilator 40 02/13/19 14:00 91 20 210/88 (128) 93 I&O Intake and Output 02/13/19 02/14/19 19:00 07:00 Intake Total 1679.919 ml 2906.0 ml Output Total 820 ml 1030 ml Balance 859.919 ml 1876.0 ml Free Water 120 ml 120 ml IV Total 1139.919 ml 2366.0 ml Tube Feeding 420 ml 420 ml Output Urine Total 820 ml 1030 ml Dressing: saturated Wound: clean Cardiovascular: RSR Respiratory: clear Abdomen: soft, distended, decreased bowel sounds Extremities: edema, no tenderness, no cyanosis Laboratory Tests Test 02/13/19 14:10 02/13/19 16:10 02/14/19 04:30 02/14/19 07:20 Arterial Blood pH 7.162 (7.350-7.450) 7.279 (7.350-7.450) 7.366 (7.350-7.450) Arterial Blood Partial Pressure CO2 42.8 mmHg (35.0-45.0) 33.7 mmHg (35.0-45.0) L 33.5 mmHg (35.0-45.0) L Arterial Blood Partial Pressure O2 81.1 mmHg (75.0-100.0) 71.4 mmHg (75.0-100.0) L 71.2 mmHg (75.0-100.0) L Arterial Blood HCO3 15.0 mmol/L (22.0-26.0) *L 15.4 mmol/L (22.0-26.0) *L 18.8 mmol/L (22.0-26.0) L Arterial Blood Oxygen Saturation 92.4 % (95-100) L 92.2 % (95-100) L 92.5 % (95-100) L Arterial Blood Base Excess -13.0 (-2-2) *L -10.3 (-2-2) *L -5.9 (-2-2) L Benny Test Positive Positive Positive White Blood Count 6.3 K/UL (4.8-10.8) Red Blood Count 3.10 M/UL (4.70-6.10) L Hemoglobin 8.5 G/DL (14.2-18.0) L Hematocrit 26.4 % (42.0-52.0) L Mean Corpuscular Volume 85 FL (80-99) Mean Corpuscular Hemoglobin 27.5 PG (27.0-31.0) Mean Corpuscular Hemoglobin Concent 32.2 G/DL (32.0-36.0) Red Cell Distribution Width 18.3 % (11.6-14.8) H Platelet Count 224 K/UL (150-450) Mean Platelet Volume 6.4 FL (6.5-10.1) L Neutrophils (%) (Auto) 75.1 % (45.0-75.0) H Lymphocytes (%) (Auto) 15.2 % (20.0-45.0) L Monocytes (%) (Auto) 8.9 % (1.0-10.0) Eosinophils (%) (Auto) 0.2 % (0.0-3.0) Basophils (%) (Auto) 0.6 % (0.0-2.0) Sodium Level 144 MMOL/L (136-145) Potassium Level 4.5 MMOL/L (3.5-5.1) Chloride Level 111 MMOL/L (98-107) H Carbon Dioxide Level 22 MMOL/L (21-32) Anion Gap 12 mmol/L (5-15) Blood Urea Nitrogen 68 mg/dL (7-18) H Creatinine 3.5 MG/DL (0.55-1.30) H Estimat Glomerular Filtration Rate 18.0 mL/min (>60) Glucose Level 158 MG/DL (74-106) H Uric Acid 6.4 MG/DL (2.6-7.2) Calcium Level 7.7 MG/DL (8.5-10.1) L Phosphorus Level 5.3 MG/DL (2.5-4.9) H Magnesium Level 2.9 MG/DL (1.8-2.4) H Total Bilirubin 0.3 MG/DL (0.2-1.0) Gamma Glutamyl Transpeptidase 417 U/L (5-85) H Aspartate Amino Transf (AST/SGOT) 35 U/L (15-37) Alanine Aminotransferase (ALT/SGPT) 59 U/L (12-78) Alkaline Phosphatase 183 U/L (46-116) H C-Reactive Protein, Quantitative 4.3 mg/dL (0.00-0.90) H Pro-B-Type Natriuretic Peptide 6855 pg/mL (0-125) H Total Protein 5.7 G/DL (6.4-8.2) L Albumin 1.9 G/DL (3.4-5.0) L Globulin 3.8 g/dL Albumin/Globulin Ratio 0.5 (1.0-2.7) L Random Vancomycin Level 14.1 ug/mL Plan Problems: (1) Hypoxia Assessment & Plan: Extensive bilateral upper lobe infiltrates likely inflammatory/infectious. Correlate clinically. Tuberculosis is not excludable. Bilateral pleural effusions. Endotracheal tube and nasogastric tube in good position Atherosclerotic vascular disease (2) Respiratory distress Assessment & Plan: AM CXR pulm input appreciated (3) Sepsis Assessment & Plan: Sepsis with tachycardia, leukocytosis, abnormal labs, respiratory distress on vent support via ET tube, acidosis. Cont IV abx CXR noted appreciate ICU team care abnormal lft's US noted will need temp HD line as will benefit from HD will cont to follow with recs trend labs Rx as written Moiz Costa Feb 14, 2019 13:54
--- NOTE | 2019-02-14 14:14 | NUR ---
NURSE NOTES: Blood sugar 213 mg/dl, increased insulin to 11 u/hr and 5 units IVP given as per protocol. Patient agitated, seen restless and trying to get up, increased Versed drip to 8mg/hr to meet RASS -2. Turned and repositioned. Tolerating TF well.
--- NOTE | 2019-02-14 14:47 | Hematology/Onc Progress Note ---
Assessment/Plan Assessment/Plan ASSESSMENT AND RECOMMENDATIONS # Anemia of chronic disease due to underlying chronic medical issues, multifactorial --> Anemia workup has been reviewed. Ferritin 182 --> No evidence of hemolysis is noted, peripheral smear has been reviewed. --> Hgb goal >7. Transfuse prn. --> Epogen or iron at this time is not particularly indicated --> Medications have been reviewed --> low threshold for gi evaluation in case has occult + --> bone marrow biopsy is not indicated given the other more likely causes --> Blood tx: 1 unit on 02/10/19, --> Hgb trend: 7.6-->8.2-->9.4-->8.4 # Thrombocytopenia - potential causes multifactorial, likely related to HIV status --> Hep panel pending and HIV confirmed positive --> US abd to evaluate for cirrhosis and hsm ordered --> Peripheral smear ordered to evaluate for blasts /schistocytes --> abx and other meds have been reviewed --> ok for ppx if plt >50k w/ either heparin or lovenox --> Transfuse if Plt < 20k and fever, or if Plt < 10k without fever --> Plt trend: 153-->257-->224 --> WILLIAM screen negative # Multilobar pneumonia in patient with HIV. Recs per ID. --> Broad sp atbx started. Continue Zosyn, Vancomycin and Azithromycin --> Droplet precaution # Hypoxemic respiratory failure. Pulm is following, appreciate recs. --> Bipap as needed, transition to O2 via NC when able --> Due to pneumonia, on abx # Chest pain. 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 --> Trend troponin x3 --> NGT prn # HIV. --> Continue HARRT --> VL is undetectable per patient report. # HTN --> Resume home medication # DVT and GI ppx The time the note is entered does not reflect the time the patient was examined. I greatly appreciate the consultation. Subjective ROS Limited/Unobtainable: Yes Hematologic/Lymphatic: Reports: anemia Allergies: Coded Allergies: No Known Allergies (Unverified , 02/05/13) Subjective 02/11: Hgb yesterday was 7.6, s/p 1 unit prbc. Current hgb at 8.2. Pt attempted to pull out tubes per nursing team, soft restraints applied. 02/13: Pt in ICU and intubated. Pt currently sedated. Current hgb 9.4. 02/14: Pt remains in icu, sedated. Hgb stable. Objective Objective Current Medications Medications (Trade) Dose Ordered Sig/Marquis Route PRN Reason Start Time Stop Time Status Last Admin Dose Admin Acetaminophen (Tylenol) 650 mg Q4H PRN ORAL Mild Pain (Pain Scale 1-3) 02/07/19 11:15 03/08/19 17:29 02/07/19 23:01 Acetaminophen/ Butalbital/ Caffeine (Fioricet) 1 tab Q8H PRN ORAL For Headache 02/08/19 17:15 03/10/19 17:14 Albuterol/ Ipratropium (Albuterol/ Ipratropium) 3 ml Q4HRT HHN 02/09/19 15:00 02/14/19 14:59 02/14/19 10:38 Alprazolam (Xanax) 0.5 mg Q6H PRN ORAL For Anxiety 02/08/19 20:15 02/15/19 20:14 02/13/19 14:01 Amlodipine Besylate (Norvasc) 10 mg DAILY NG 02/15/19 09:00 03/14/19 15:59 Aspirin (Ecotrin) 81 mg DAILY ORAL 02/08/19 09:00 03/09/19 08:59 02/14/19 08:42 Atorvastatin Calcium (Lipitor) 40 mg QHS ORAL 02/08/19 21:00 03/10/19 20:59 02/13/19 20:34 Bisacodyl (Dulcolax) 5 mg DAILYPRN PRN ORAL Constipation 02/08/19 17:15 03/10/19 17:14 02/13/19 20:34 Chlorhexidine Gluconate (Jessy-Hex 2%) 1 applic DAILY@2000 TOPIC 02/13/19 20:00 03/15/19 19:59 02/13/19 20:33 Dextrose (Dextrose 50%) 25 ml Q30M PRN IV [id number] 02/11/19 17:15 03/13/19 17:14 Dextrose (Dextrose 50%) 50 ml Q30M PRN IV [id number] 02/11/19 17:15 03/13/19 17:14 Docusate Sodium (Colace) 100 mg TID GT 02/12/19 18:00 03/12/19 08:59 02/14/19 12:20 Enoxaparin Sodium (Lovenox) 40 mg Q24H SUBQ 02/07/19 21:00 03/08/19 20:59 02/12/19 20:03 Fentanyl Citrate 2500 mcg/Sodium Chloride 250 ml @ 0 mls/hr Q24H IV 02/13/19 15:45 02/20/19 15:44 02/13/19 16:25 Fluconazole/ Sodium Chloride 100 ml @ 100 mls/hr Q24H IV 02/14/19 18:00 02/21/19 17:59 Guaifenesin (Mucinex ER) 600 mg TWICE A DAY ORAL 02/07/19 18:00 03/09/19 08:59 02/14/19 08:42 Heparin Sodium/ Sodium Chloride (Heparin 1000 units/500ml Premix) 1,000 unit ONCE PRN IV picc line placement 02/13/19 10:00 02/15/19 09:59 Hydralazine HCl (Apresoline) 25 mg Q4H PRN NG SBP > 160mmHg 02/12/19 16:00 03/08/19 11:14 Hydralazine HCl (Apresoline) 50 mg Q6HR NG 02/14/19 00:00 03/14/19 17:59 02/14/19 12:21 Insulin Human Regular (NovoLIN R) 5 units PRN PRN IV BS 200-299 02/11/19 17:15 03/13/19 17:14 02/14/19 14:08 Insulin Human Regular (NovoLIN R) 10 units PRN PRN IV BS=>300 02/11/19 17:15 03/13/19 17:14 02/13/19 02:05 Insulin Human Regular 100 units/ Sodium Chloride 100 ml @ 0 mls/hr Q24H IV 02/12/19 10:42 03/14/19 10:41 02/14/19 01:29 Isosorbide Dinitrate (Isordil) 10 mg Q6HR NG 02/13/19 13:00 03/15/19 12:59 02/14/19 12:20 Lansoprazole (Prevacid) 30 mg BID NG 02/12/19 18:00 03/14/19 17:59 02/14/19 08:42 Lidocaine HCl (Xylocaine 1% 30ml) 30 ml ONCE PRN INJ picc line placement 02/13/19 10:00 02/15/19 09:59 Methylprednisolone Sodium Succinate (Solu-MEDROL) 30 mg EVERY 12 HOURS IVP 02/13/19 21:00 03/12/19 20:59 02/14/19 08:42 Metoprolol Tartrate (Lopressor) 100 mg Q12HR ORAL 02/07/19 21:00 03/08/19 20:59 02/14/19 08:42 Midazolam HCl (Versed 2mg/2ml vial) 1 mg Q2H PRN IVP Agitation 02/13/19 08:45 03/15/19 08:44 02/14/19 05:49 Midazolam HCl 50 mg/Sodium Chloride 100 ml @ 0 mls/hr Q24H IV 02/13/19 15:45 02/20/19 15:44 02/14/19 12:21 Miscellaneous Medication (Insulin Rate Change) 1 ea PRN PRN MISC Per rx protocol 02/11/19 17:15 03/13/19 17:14 02/13/19 20:18 Nitroglycerin (Ntg) 0.4 mg Q5M PRN SL Prn Chest Pain 02/07/19 11:00 03/08/19 17:29 02/08/19 07:42 Ondansetron HCl (Zofran) 4 mg Q6H PRN IVP Nausea & Vomiting 02/07/19 11:15 03/08/19 11:14 02/09/19 00:58 Patient Own Medication (Patient's Own Med) 1 ea BID ORAL 02/07/19 18:00 03/09/19 17:59 02/14/19 08:41 Patient Own Medication (Patient's Own Med) 1 ea Q72H ORAL 02/16/19 09:00 03/15/19 08:59 Patient Own Medication (Patient's Own Med) 2 ea DAILY ORAL 02/08/19 09:00 03/10/19 08:59 02/14/19 08:41 Piperacillin Sod/ Tazobactam Sod 3.375 gm/Sodium Chloride 110 ml @ 27.5 mls/hr Q12HR@0600,1800 IVPB 02/11/19 18:00 02/18/19 17:59 02/14/19 05:49 Polyethylene Glycol (Miralax) 17 gm BEDTIME ORAL 02/08/19 21:00 03/10/19 20:59 02/13/19 20:33 Sennosides (Senokot) 8.6 mg DAILY ORAL 02/13/19 12:00 03/15/19 11:59 02/14/19 08:42 Sodium Bicarbonate 150 ml/Sodium Chloride 1,150 ml @ 100 mls/hr [id number] IV 02/13/19 18:00 03/15/19 17:59 02/14/19 05:50 Sodium Citrate (Bicitra) 30 ml EVERY 6 HOURS NG 02/13/19 12:15 03/15/19 12:14 02/14/19 12:20 Trimethoprim/ Sulfamethoxazole 25 ml/Dextrose 575 ml @ 383.333 mls/hr Q12HR@0000,1200 IV 02/11/19 12:00 02/18/19 11:59 02/14/19 12:21 Vancomycin HCl (Vanco rx to dose) 1 ea DAILY PRN MISC . 02/10/19 19:45 03/12/19 19:44 Last 24 Hour Vital Signs Date Time Temp Pulse Resp B/P (MAP) Pulse Ox O2 Delivery O2 Flow Rate FiO2 02/14/19 13:09 77 24 40 02/14/19 12:21 129/55 02/14/19 12:21 24 Mechanical Ventilator 50.0 40 02/14/19 12:20 129/55 02/14/19 12:00 40 02/14/19 12:00 75 02/14/19 12:00 Mechanical Ventilator Mechanical Ventilator Mechanical Ventilator 02/14/19 11:30 69 24 129/55 (79) 100 02/14/19 11:00 70 24 129/54 (79) 93 02/14/19 10:47 75 24 96 Mechanical Ventilator 40 02/14/19 10:39 70 24 40 02/14/19 10:38 70 24 96 Mechanical Ventilator 40 02/14/19 10:30 71 24 135/58 (83) 94 02/14/19 10:00 71 24 164/71 (102) 96 02/14/19 09:30 65 24 130/59 (82) 96 02/14/19 09:00 67 24 130/59 (82) 97 02/14/19 09:00 24 Mechanical Ventilator 40 02/14/19 09:00 24 Mechanical Ventilator 40 02/14/19 08:51 76 24 40 02/14/19 08:42 70 138/64 02/14/19 08:42 70 138/64 02/14/19 08:30 70 24 135/60 (85) 97 02/14/19 08:00 81 02/14/19 08:00 Mechanical Ventilator Mechanical Ventilator Mechanical Ventilator 02/14/19 08:00 40 02/14/19 08:00 24 Mechanical Ventilator 40 02/14/19 08:00 24 Mechanical Ventilator 40 02/14/19 08:00 68 24 128/55 (79) 96 02/14/19 07:30 96.7 71 24 127/54 (78) 98 02/14/19 07:15 70 24 98 Mechanical Ventilator 40 02/14/19 07:00 74 24 138/64 (88) 100 02/14/19 07:00 24 Mechanical Ventilator 40 02/14/19 07:00 24 40 02/14/19 06:56 77 25 98 Mechanical Ventilator 40 02/14/19 06:52 72 24 40 02/14/19 06:30 77 24 164/62 (96) 100 02/14/19 06:00 72 24 182/83 (116) 100 02/14/19 06:00 24 Mechanical Ventilator 40 02/14/19 06:00 24 Mechanical Ventilator 40 02/14/19 05:49 151/70 02/14/19 05:49 151/70 02/14/19 05:30 73 24 163/73 (103) 100 02/14/19 05:07 77 25 40 02/14/19 05:00 73 24 151/70 (97) 100 02/14/19 05:00 24 Mechanical Ventilator 40 02/14/19 05:00 24 Mechanical Ventilator 40 02/14/19 04:30 76 24 145/66 (92) 100 02/14/19 04:00 98.3 80 24 167/81 (109) 100 02/14/19 04:00 75 02/14/19 04:00 24 Mechanical Ventilator 40 02/14/19 04:00 24 Mechanical Ventilator 40 02/14/19 04:00 Mechanical Ventilator Mechanical Ventilator Mechanical Ventilator 02/14/19 04:00 40 02/14/19 03:41 24 Mechanical Ventilator 40 02/14/19 03:30 69 24 170/82 (111) 97 02/14/19 03:24 68 24 100 Mechanical Ventilator 40 02/14/19 03:13 65 24 40 02/14/19 03:13 65 24 97 Mechanical Ventilator 40 02/14/19 03:00 67 24 138/64 (88) 98 02/14/19 03:00 24 Mechanical Ventilator 40 02/14/19 03:00 24 Mechanical Ventilator 40 02/14/19 02:30 65 24 130/61 (84) 97 02/14/19 02:00 66 24 131/62 (85) 97 02/14/19 02:00 24 Mechanical Ventilator 40 02/14/19 02:00 24 Mechanical Ventilator 40 02/14/19 01:30 69 24 149/75 (99) 99 02/14/19 01:22 70 24 40 02/14/19 01:00 68 24 135/64 (87) 97 02/14/19 01:00 24 Mechanical Ventilator 40 02/14/19 01:00 24 Mechanical Ventilator 40 02/14/19 00:00 97.8 68 24 150/72 (98) 98 02/14/19 00:00 24 Mechanical Ventilator 40 02/14/19 00:00 24 Mechanical Ventilator 40 02/14/19 00:00 40 02/14/19 00:00 Mechanical Ventilator Mechanical Ventilator Mechanical Ventilator 02/14/19 00:00 68 02/13/19 23:46 133/60 02/13/19 23:46 133/60 02/13/19 23:20 66 24 99 Mechanical Ventilator 40 02/13/19 23:13 68 24 97 Mechanical Ventilator 40 02/13/19 23:12 67 24 40 02/13/19 23:00 67 24 169/80 (109) 97 02/13/19 23:00 24 Mechanical Ventilator 40 02/13/19 23:00 24 Mechanical Ventilator 40 02/13/19 22:04 69 24 40 02/13/19 22:00 67 24 173/82 (112) 96 02/13/19 22:00 24 Mechanical Ventilator 40 02/13/19 22:00 24 Mechanical Ventilator 40 02/13/19 21:00 24 Mechanical Ventilator 40 02/13/19 21:00 24 Mechanical Ventilator 40 02/13/19 21:00 70 24 208/92 (130) 97 02/13/19 20:34 70 159/68 02/13/19 20:00 67 02/13/19 20:00 20 Mechanical Ventilator 40 02/13/19 20:00 24 Mechanical Ventilator 40 02/13/19 20:00 40 02/13/19 20:00 98.0 72 24 153/66 (95) 97 02/13/19 20:00 Mechanical Ventilator Mechanical Ventilator Mechanical Ventilator 02/13/19 19:15 70 24 100 Mechanical Ventilator 40 02/13/19 19:07 69 24 98 Mechanical Ventilator 40 02/13/19 19:04 69 24 40 02/13/19 19:00 70 24 159/68 (98) 100 02/13/19 19:00 24 Endotracheal Tube 40 02/13/19 19:00 24 Mechanical Ventilator 40 02/13/19 18:30 69 24 151/66 (94) 97 02/13/19 18:06 150/61 02/13/19 18:00 24 Mechanical Ventilator 40 02/13/19 18:00 24 Mechanical Ventilator 40 02/13/19 18:00 69 24 150/61 (90) 98 02/13/19 17:30 70 24 153/63 (93) 98 02/13/19 17:18 68 24 40 02/13/19 17:00 70 24 144/64 (90) 98 02/13/19 17:00 24 Mechanical Ventilator 40 02/13/19 17:00 26 Mechanical Ventilator 40 02/13/19 16:55 97.6 02/13/19 16:30 70 24 137/95 (109) 98 02/13/19 16:25 24 Mechanical Ventilator 50.0 40 02/13/19 16:25 24 Mechanical Ventilator 50.0 40 02/13/19 16:00 Mechanical Ventilator Mechanical Ventilator Mechanical Ventilator 02/13/19 16:00 68 02/13/19 16:00 97.8 68 24 140/62 (88) 97 02/13/19 16:00 40 02/13/19 15:30 72 24 206/95 (132) 98 02/13/19 15:28 24 194/95 Mechanical Ventilator 40 02/13/19 15:13 88 24 100 Mechanical Ventilator 40 02/13/19 15:12 81 24 40 02/13/19 15:04 81 24 100 Mechanical Ventilator 40 02/13/19 15:00 85 20 206/95 (132) 93 02/13/19 14:30 81 20 200/86 (124) 93 02/13/19 14:01 182/82 02/13/19 14:00 26 Mechanical Ventilator 40 02/13/19 14:00 91 20 210/88 (128) 93 02/13/19 13:30 82 22 175/73 (107) 96 02/13/19 13:15 74 24 40 02/13/19 13:00 26 Mechanical Ventilator 40 02/13/19 13:00 75 20 160/69 (99) 93 02/13/19 12:31 182/82 02/13/19 12:30 78 20 173/70 (104) 93 02/13/19 12:22 182/82 02/13/19 12:00 91 02/13/19 12:00 26 Endotracheal Tube 40 02/13/19 12:00 24 Mechanical Ventilator 40 02/13/19 12:00 26 Endotracheal Tube 40 02/13/19 12:00 99.6 80 20 132/64 (86) 93 02/13/19 12:00 Mechanical Ventilator Mechanical Ventilator Mechanical Ventilator 02/13/19 12:00 40 02/13/19 11:40 95 31 96 Mechanical Ventilator 40 02/13/19 11:30 95 29 95 Mechanical Ventilator 40 02/13/19 11:20 95 30 40 02/13/19 11:00 78 20 169/78 (108) 93 02/13/19 11:00 26 Mechanical Ventilator 40 02/13/19 10:32 99.3 02/13/19 10:30 24 170/81 Mechanical Ventilator 40 02/13/19 10:30 83 20 188/85 (119) 97 02/13/19 10:02 24 Mechanical Ventilator 50.0 35 02/13/19 10:01 24 155/75 Mechanical Ventilator 50.0 40 02/13/19 10:00 74 24 170/81 (110) 97 02/13/19 10:00 24 170/81 Endotracheal Tube 40 02/13/19 09:30 71 21 145/78 (100) 97 02/13/19 09:00 70 20 150/68 (95) 97 02/13/19 09:00 24 145/67 Endotracheal Tube 40 02/13/19 08:31 75 25 35 02/13/19 08:30 75 20 145/67 (93) 93 02/13/19 08:29 80 132/75 02/13/19 08:28 80 132/75 02/13/19 08:00 81 02/13/19 08:00 75 23 139/66 (90) 96 02/13/19 08:00 40 02/13/19 08:00 22 136/70 Mechanical Ventilator 40 02/13/19 08:00 Mechanical Ventilator Mechanical Ventilator Mechanical Ventilator 02/13/19 07:30 97.8 75 20 136/70 (92) 93 02/13/19 07:00 22 132/75 Mechanical Ventilator 35 02/13/19 07:00 80 20 132/64 (86) 93 02/13/19 06:41 88 24 98 Mechanical Ventilator 35 02/13/19 06:39 78 27 35 02/13/19 06:35 78 24 96 Mechanical Ventilator 35 02/13/19 06:01 27 140/70 35 02/13/19 06:00 81 27 145/75 (98) 94 02/13/19 05:37 149/75 02/13/19 05:25 86 27 35 35 02/13/19 05:00 87 21 140/70 (93) 94 02/13/19 05:00 25 149/75 Mechanical Ventilator 35 02/13/19 04:00 Mechanical Ventilator Mechanical Ventilator Mechanical Ventilator 02/13/19 04:00 35 02/13/19 04:00 20 146/112 02/13/19 04:00 99.3 97 16 146/112 (123) 93 02/13/19 04:00 106 02/13/19 03:31 21 164/75 Mechanical Ventilator 35 02/13/19 03:27 78 24 98 Mechanical Ventilator 35 02/13/19 03:19 93 26 96 Mechanical Ventilator 35 02/13/19 03:18 93 26 35 35 02/13/19 03:00 24 181/101 Mechanical Ventilator 35 02/13/19 03:00 94 24 164/75 (104) 93 02/13/19 02:30 93 22 177/84 (115) 95 02/13/19 02:00 89 16 160/79 (106) 97 02/13/19 02:00 21 169/85 Mechanical Ventilator 35 02/13/19 01:30 84 24 157/75 (102) 95 02/13/19 01:01 88 28 35 35 02/13/19 01:00 79 22 148/74 (98) 96 02/13/19 01:00 24 157/73 Mechanical Ventilator 35 02/13/19 00:41 139/82 02/13/19 00:30 83 22 156/75 (102) 96 02/13/19 00:00 98.9 82 20 133/80 (97) 97 02/13/19 00:00 Mechanical Ventilator Mechanical Ventilator Mechanical Ventilator 02/13/19 00:00 35 02/13/19 00:00 24 139/82 Mechanical Ventilator 35 02/13/19 00:00 96 02/12/19 23:42 29 128/65 Mechanical Ventilator 50.0 35 02/12/19 23:41 22 129/77 Mechanical Ventilator 35 02/12/19 23:33 72 24 98 Mechanical Ventilator 35 02/12/19 23:30 75 20 145/80 (101) 99 02/12/19 23:22 79 29 96 Mechanical Ventilator 35 02/12/19 23:22 74 29 35 35 02/12/19 23:00 24 128/65 35 02/12/19 23:00 73 22 137/72 (93) 96 02/12/19 22:30 72 22 141/77 (98) 96 02/12/19 22:00 72 21 132/75 (94) 96 02/12/19 22:00 22 141/77 Mechanical Ventilator 35 02/12/19 21:30 70 20 136/70 (92) 96 02/12/19 21:00 20 148/74 Mechanical Ventilator 35 02/12/19 21:00 72 20 148/74 (98) 97 02/12/19 20:39 75 25 35 35 02/12/19 20:30 75 22 137/77 (97) 98 02/12/19 20:23 24 128/65 Mechanical Ventilator 50.0 35 02/12/19 20:22 23 134/72 Mechanical Ventilator 35 02/12/19 20:01 68 128/65 02/12/19 20:00 97.9 70 23 134/72 (92) 96 02/12/19 20:00 23 134/72 Mechanical Ventilator 35 02/12/19 20:00 35 02/12/19 20:00 73 02/12/19 20:00 Mechanical Ventilator Mechanical Ventilator Mechanical Ventilator 02/12/19 19:30 68 24 128/65 (86) 98 02/12/19 19:14 68 24 98 Mechanical Ventilator 35 02/12/19 19:04 67 24 97 Mechanical Ventilator 35 02/12/19 19:03 67 24 35 35 02/12/19 19:00 66 24 133/70 (91) 98 02/12/19 19:00 24 133/70 Mechanical Ventilator 98 02/12/19 18:30 68 21 134/71 (92) 97 02/12/19 18:00 68 21 141/72 (95) 96 02/12/19 18:00 24 141/72 Mechanical Ventilator 35 02/12/19 17:52 97.9 02/12/19 17:30 67 23 139/70 (93) 95 02/12/19 17:30 24 128/65 Mechanical Ventilator 50.0 35 02/12/19 17:23 151/75 02/12/19 17:23 67 151/75 02/12/19 17:00 65 24 35 02/12/19 17:00 24 139/72 Mechanical Ventilator 35 02/12/19 17:00 67 21 149/67 (94) 95 02/12/19 16:30 66 24 154/65 (94) 94 02/12/19 16:00 97.9 67 24 151/75 (100) 99 02/12/19 16:00 24 149/67 Mechanical Ventilator 35 02/12/19 16:00 67 02/12/19 16:00 35 02/12/19 15:30 67 22 150/82 (104) 99 02/12/19 15:29 69 28 97 Mechanical Ventilator 35 02/12/19 15:28 69 28 35 02/12/19 15:15 68 28 97 Mechanical Ventilator 35 02/12/19 15:00 24 152/68 Mechanical Ventilator 35 02/12/19 15:00 66 22 149/67 (94) 95 Intake and Output 02/13/19 02/14/19 19:00 07:00 Intake Total 1679.919 ml 2906.0 ml Output Total 820 ml 1030 ml Balance 859.919 ml 1876.0 ml Free Water 120 ml 120 ml IV Total 1139.919 ml 2366.0 ml Tube Feeding 420 ml 420 ml Output Urine Total 820 ml 1030 ml Labs Test 02/12/19 03:45 02/12/19 16:15 02/12/19 16:20 02/13/19 04:00 White Blood Count 6.2 K/UL (4.8-10.8) Red Blood Count 2.94 M/UL (4.70-6.10) Hemoglobin 8.2 G/DL (14.2-18.0) Hematocrit 24.7 % (42.0-52.0) Mean Corpuscular Volume 84 FL (80-99) Mean Corpuscular Hemoglobin 27.8 PG (27.0-31.0) Mean Corpuscular Hemoglobin Concent 33.2 G/DL (32.0-36.0) Red Cell Distribution Width 17.5 % (11.6-14.8) Platelet Count 179 K/UL (150-450) Mean Platelet Volume 6.5 FL (6.5-10.1) Neutrophils (%) (Auto) % (45.0-75.0) Lymphocytes (%) (Auto) % (20.0-45.0) Monocytes (%) (Auto) % (1.0-10.0) Eosinophils (%) (Auto) % (0.0-3.0) Basophils (%) (Auto) % (0.0-2.0) Sodium Level 139 MMOL/L (136-145) 140 MMOL/L (136-145) Potassium Level 4.0 MMOL/L (3.5-5.1) 4.5 MMOL/L (3.5-5.1) Chloride Level 108 MMOL/L (98-107) 110 MMOL/L (98-107) Carbon Dioxide Level 18 MMOL/L (21-32) 16 MMOL/L (21-32) Anion Gap 14 mmol/L (5-15) 14 mmol/L (5-15) Blood Urea Nitrogen 63 mg/dL (7-18) 64 mg/dL (7-18) Creatinine 3.8 MG/DL (0.55-1.30) 3.9 MG/DL (0.55-1.30) Estimat Glomerular Filtration Rate 16.4 mL/min (>60) 15.9 mL/min (>60) Glucose Level 210 MG/DL (74-106) 178 MG/DL (74-106) Hemoglobin A1c 7.0 % (4.3-6.0) Uric Acid 7.8 MG/DL (2.6-7.2) Calcium Level 7.6 MG/DL (8.5-10.1) 7.3 MG/DL (8.5-10.1) Phosphorus Level 3.9 MG/DL (2.5-4.9) Magnesium Level 2.9 MG/DL (1.8-2.4) Total Bilirubin 0.3 MG/DL (0.2-1.0) Direct Bilirubin 0.2 MG/DL (0.0-0.3) Aspartate Amino Transf (AST/SGOT) 63 U/L (15-37) Alanine Aminotransferase (ALT/SGPT) 77 U/L (12-78) Alkaline Phosphatase 264 U/L (46-116) Total Protein 5.0 G/DL (6.4-8.2) Albumin 1.8 G/DL (3.4-5.0) Folate 28.4 NG/ML (8.6-58.9) Random Vancomycin Level 18.6 ug/mL Urine Color Pale yellow Urine Appearance Slightly cloudy Urine pH 5 (4.5-8.0) Urine Specific [place] 1.015 (1.005-1.035) Urine Protein 2+ (NEGATIVE) Urine Glucose (UA) Negative (NEGATIVE) Urine Ketones Negative (NEGATIVE) Urine Blood 2+ (NEGATIVE) Urine Nitrite Negative (NEGATIVE) Urine Bilirubin Negative (NEGATIVE) Urine Urobilinogen Normal MG/DL (0.0-1.0) Urine Leukocyte Esterase Negative (NEGATIVE) Urine RBC 10-15 /HPF (0 - 0) Urine WBC 0-2 /HPF (0 - 0) Urine Squamous Epithelial Cells Occasional /LPF Urine Amorphous Sediment Moderate /LPF (NONE) Urine Bacteria Few /HPF (NONE) Urine Random Sodium 44 mmol/L (20-110) Urine Eosinophils None seen (NONE SEEN) Test 02/13/19 05:00 02/13/19 08:23 02/13/19 14:10 02/13/19 16:10 White Blood Count 11.6 K/UL (4.8-10.8) Red Blood Count 3.35 M/UL (4.70-6.10) Hemoglobin 9.4 G/DL (14.2-18.0) Hematocrit 28.7 % (42.0-52.0) Mean Corpuscular Volume 86 FL (80-99) Mean Corpuscular Hemoglobin 28.1 PG (27.0-31.0) Mean Corpuscular Hemoglobin Concent 32.8 G/DL (32.0-36.0) Red Cell Distribution Width 18.2 % (11.6-14.8) Platelet Count 257 K/UL (150-450) Mean Platelet Volume 6.3 FL (6.5-10.1) Neutrophils (%) (Auto) % (45.0-75.0) Lymphocytes (%) (Auto) % (20.0-45.0) Monocytes (%) (Auto) % (1.0-10.0) Eosinophils (%) (Auto) % (0.0-3.0) Basophils (%) (Auto) % (0.0-2.0) Differential Total Cells Counted 100 Neutrophils % (Manual) 90 % (45-75) Lymphocytes % (Manual) 7 % (20-45) Monocytes % (Manual) 3 % (1-10) Eosinophils % (Manual) 0 % (0-3) Basophils % (Manual) 0 % (0-2) Band Neutrophils 0 % (0-8) Platelet Estimate Adequate Platelet Morphology Normal Activated Partial Thromboplast Time 29 SEC (23-33) Sodium Level 142 MMOL/L (136-145) Potassium Level 4.8 MMOL/L (3.5-5.1) Chloride Level 111 MMOL/L (98-107) Carbon Dioxide Level 15 MMOL/L (21-32) Anion Gap 16 mmol/L (5-15) Blood Urea Nitrogen 70 mg/dL (7-18) Creatinine 3.8 MG/DL (0.55-1.30) Estimat Glomerular Filtration Rate 16.4 mL/min (>60) Glucose Level 198 MG/DL (74-106) Uric Acid 6.9 MG/DL (2.6-7.2) Calcium Level 8.1 MG/DL (8.5-10.1) Phosphorus Level 5.3 MG/DL (2.5-4.9) Magnesium Level 2.9 MG/DL (1.8-2.4) Total Bilirubin 0.3 MG/DL (0.2-1.0) Gamma Glutamyl Transpeptidase 473 U/L (5-85) Aspartate Amino Transf (AST/SGOT) 49 U/L (15-37) Alanine Aminotransferase (ALT/SGPT) 74 U/L (12-78) Alkaline Phosphatase 249 U/L (46-116) Total Creatine Kinase 171 U/L (26-308) Troponin I 3.192 ng/mL (0.000-0.056) C-Reactive Protein, Quantitative 8.2 mg/dL (0.00-0.90) Pro-B-Type Natriuretic Peptide 6068 pg/mL (0-125) Total Protein 6.6 G/DL (6.4-8.2) Albumin 2.0 G/DL (3.4-5.0) Globulin 4.6 g/dL Albumin/Globulin Ratio 0.4 (1.0-2.7) Triglycerides Level 198 MG/DL (30-150) Thyroid Stimulating Hormone (TSH) 0.460 uiU/mL (0.358-3.740) Arterial Blood pH 7.278 (7.350-7.450) 7.162 (7.350-7.450) 7.279 (7.350-7.450) Arterial Blood Partial Pressure CO2 33.1 mmHg (35.0-45.0) 42.8 mmHg (35.0-45.0) 33.7 mmHg (35.0-45.0) Arterial Blood Partial Pressure O2 83.2 mmHg (75.0-100.0) 81.1 mmHg (75.0-100.0) 71.4 mmHg (75.0-100.0) Arterial Blood HCO3 15.1 mmol/L (22.0-26.0) 15.0 mmol/L (22.0-26.0) 15.4 mmol/L (22.0-26.0) Arterial Blood Oxygen Saturation 94.1 % (95-100) 92.4 % (95-100) 92.2 % (95-100) Arterial Blood Base Excess -10.6 (-2-2) -13.0 (-2-2) -10.3 (-2-2) Benny Test Positive Positive Positive Test 02/14/19 04:30 02/14/19 07:20 White Blood Count 6.3 K/UL (4.8-10.8) Red Blood Count 3.10 M/UL (4.70-6.10) Hemoglobin 8.5 G/DL (14.2-18.0) Hematocrit 26.4 % (42.0-52.0) Mean Corpuscular Volume 85 FL (80-99) Mean Corpuscular Hemoglobin 27.5 PG (27.0-31.0) Mean Corpuscular Hemoglobin Concent 32.2 G/DL (32.0-36.0) Red Cell Distribution Width 18.3 % (11.6-14.8) Platelet Count 224 K/UL (150-450) Mean Platelet Volume 6.4 FL (6.5-10.1) Neutrophils (%) (Auto) 75.1 % (45.0-75.0) Lymphocytes (%) (Auto) 15.2 % (20.0-45.0) Monocytes (%) (Auto) 8.9 % (1.0-10.0) Eosinophils (%) (Auto) 0.2 % (0.0-3.0) Basophils (%) (Auto) 0.6 % (0.0-2.0) Sodium Level 144 MMOL/L (136-145) Potassium Level 4.5 MMOL/L (3.5-5.1) Chloride Level 111 MMOL/L (98-107) Carbon Dioxide Level 22 MMOL/L (21-32) Anion Gap 12 mmol/L (5-15) Blood Urea Nitrogen 68 mg/dL (7-18) Creatinine 3.5 MG/DL (0.55-1.30) Estimat Glomerular Filtration Rate 18.0 mL/min (>60) Glucose Level 158 MG/DL (74-106) Uric Acid 6.4 MG/DL (2.6-7.2) Calcium Level 7.7 MG/DL (8.5-10.1) Phosphorus Level 5.3 MG/DL (2.5-4.9) Magnesium Level 2.9 MG/DL (1.8-2.4) Total Bilirubin 0.3 MG/DL (0.2-1.0) Gamma Glutamyl Transpeptidase 417 U/L (5-85) Aspartate Amino Transf (AST/SGOT) 35 U/L (15-37) Alanine Aminotransferase (ALT/SGPT) 59 U/L (12-78) Alkaline Phosphatase 183 U/L (46-116) C-Reactive Protein, Quantitative 4.3 mg/dL (0.00-0.90) Pro-B-Type Natriuretic Peptide 6855 pg/mL (0-125) Total Protein 5.7 G/DL (6.4-8.2) Albumin 1.9 G/DL (3.4-5.0) Globulin 3.8 g/dL Albumin/Globulin Ratio 0.5 (1.0-2.7) Random Vancomycin Level 14.1 ug/mL Arterial Blood pH 7.366 (7.350-7.450) Arterial Blood Partial Pressure CO2 33.5 mmHg (35.0-45.0) Arterial Blood Partial Pressure O2 71.2 mmHg (75.0-100.0) Arterial Blood HCO3 18.8 mmol/L (22.0-26.0) Arterial Blood Oxygen Saturation 92.5 % (95-100) Arterial Blood Base Excess -5.9 (-2-2) Benny Test Positive Height (Feet): 6 Height (Inches): 0.00 Weight (Pounds): 213 Objective PHYSICAL EXAMINATION: GENERAL: NAD VITAL SIGNS: Have been reviewed. HEAD AND NECK: Shows no JVD. NG+ TRACH+ LUNGS: Coarse rhonchi. CARDIOVASCULAR: Shows regular S1 and S2 with no gallop or murmur. ABDOMEN: Soft. EXTREMITIES: No pitting edema. Chan Hernandez MD Feb 14, 2019 14:47
--- NOTE | 2019-02-14 15:03 | Consultation ---
History of Present Illness General Date patient seen: Feb 14, 2019 Chief Complaint: AMS Referring physician: DR. KRUSE Present Illness HPI 58 year old male with history of HIV, CAD, presented with chest pain and respiratory decompensation. Was admitted for care and management. Currently in ICU intubated and in critical condition. Leukocytosis, anemia, hypoxia, acidosis. Surgery called to evaluate and assist with care. patient seen, chart reviewed, patient examined. On exam patient not alert with sedation on vent. Hypoxic and acidosis. Requires HD and needs temp HD line. Allergies: Allergies: Coded Allergies: No Known Allergies (Unverified , 02/05/13) Medication History Scheduled Acetaminophen* (Acetaminophen Extra Strength*), 500 MG ORAL Q6H, (Reported) Aspirin Ec* (Aspirin Ec*), 81 MG ORAL DAILY Biotin (Biotin), 5,000 MCG PO DAILY, (Reported) Duloxetine Hcl* (Cymbalta*), 90 MG ORAL DAILY, (Reported) Etravirine* (Intelence*), 400 MG ORAL DAILY, (Reported) Ezetimibe (Zetia*), 10 MG ORAL BEDTIME, (Reported) Ferrous Sulfate* (Ferrous Sulfate*), 325 MG ORAL THREE TIMES A DAY, (Reported) Folic Acid (Folic Acid), 1 MG PO BID, (Reported) Isosorbide Mononitrate (Isosorbide Mononitrate Er), 30 MG PO DAILY, (Reported) Lamotrigine (Lamotrigine), 200 MG PO QHS, (Reported) Losartan Potassium* (Losartan Potassium*), 100 MG ORAL DAILY, (Reported) Metoprolol Tartrate* (Metoprolol Tartrate*), 100 MG ORAL Q12HR Nateglinide (Starlix), 120 MG ORAL THREE TIMES A DAY, (Reported) Raltegravir (Isentress), 400 MG ORAL EVERY 12 HOURS, (Reported) Sitagliptin* (Januvia*), 100 MG ORAL DAILY, (Reported) Tenofovir Disoproxil Fumarate* (Viread*), 300 MG ORAL DAILY, (Reported) Vitamin B Complex (Vitamin B Complex), 1 EACH PO DAILY, (Reported) Vitamin D (Vitamin D3), 400 UNITS ORAL DAILY, (Reported) Scheduled PRN Butalb/Acetaminophen/Caffeine (Saftki-Hboelgaa-Xzwx 50-325-40), 1 EACH PO BID PRN for For Pain, (Reported) Cetirizine Hcl* (Zyrtec*), 10 MG ORAL DAILY PRN for Itching, (Reported) Docusate Sodium (Docusate Sodium), 100 MG ORAL TWICE A DAY PRN for Constipation, (Reported) Miscellaneous Medications Guaifenesin (Mucinex), 100 MG PO, (Reported) Patient History Limited by: medical condition History Provided By: Medical Record Healthcare decision maker Resuscitation status Full Code Advanced Directive on File Past Medical/Surgical History Past Medical/Surgical History: (1) AIDS (2) Diabetes (3) Hypertension (4) CKD (chronic kidney disease) (5) History of stroke (6) NSTEMI (non-ST elevated myocardial infarction) (7) MDD (major depressive disorder), recurrent episode, moderate (8) Uncontrolled type 2 diabetes mellitus with chronic kidney disease (9) Malignant hypertension (10) Diabetic nephropathy (11) extensive ischemic cerebrovasculat disease, multple old lacunar strokes. (12) acute small R pontomedullary and left cerebellar peduncle strokes. (13) acute ischemic FINANCE LEAD stroke, bylateral (14) Bylateral FINANCE LEAD severe stenosis Review of Systems All Other Systems: negative except mentioned in HPI Physical Exam General Appearance: WD/WN, no apparent distress, other Lines, tubes and drains: peripheral, central line, endotracheal tube HEENT: normocephalic, atraumatic, anicteric, mucous membranes moist - Chemosis bilaterally, other - Bubbling of ocular lenses/ corneas bilaterally Neck: normal inspection Respiratory/Chest: no respiratory distress, no accessory muscle use, on vent Cardiovascular/Chest: no JVD Extremities: severe edema, other Skin Exam: normal pigmentation, warm/dry, other Neurologic: abnormal CN, unresponsiveness, aphasia, other Musculoskeletal: no effusion Last 24 Hour Vital Signs Date Time Temp Pulse Resp B/P (MAP) Pulse Ox O2 Delivery O2 Flow Rate FiO2 02/14/19 14:52 77 24 96 Mechanical Ventilator 40 02/14/19 14:42 77 24 40 02/14/19 14:42 77 24 95 Mechanical Ventilator 40 02/14/19 14:30 84 24 168/77 (107) 100 02/14/19 14:00 86 24 157/74 (101) 100 02/14/19 13:30 83 24 155/77 (103) 100 02/14/19 13:09 77 24 40 02/14/19 13:00 87 24 129/60 (83) 100 02/14/19 12:30 73 24 135/63 (87) 100 02/14/19 12:21 129/55 02/14/19 12:21 24 Mechanical Ventilator 50.0 40 02/14/19 12:20 129/55 02/14/19 12:00 40 02/14/19 12:00 75 02/14/19 12:00 97.1 69 24 127/41 (69) 100 02/14/19 12:00 Mechanical Ventilator Mechanical Ventilator Mechanical Ventilator 02/14/19 11:30 69 24 129/55 (79) 100 02/14/19 11:00 70 24 129/54 (79) 93 02/14/19 10:47 75 24 96 Mechanical Ventilator 40 02/14/19 10:39 70 24 40 02/14/19 10:38 70 24 96 Mechanical Ventilator 40 02/14/19 10:30 71 24 135/58 (83) 94 02/14/19 10:00 71 24 164/71 (102) 96 02/14/19 09:30 65 24 130/59 (82) 96 02/14/19 09:00 67 24 130/59 (82) 97 02/14/19 09:00 24 Mechanical Ventilator 40 02/14/19 09:00 24 Mechanical Ventilator 40 02/14/19 08:51 76 24 40 02/14/19 08:42 70 138/64 02/14/19 08:42 70 138/64 02/14/19 08:30 70 24 135/60 (85) 97 02/14/19 08:00 81 02/14/19 08:00 Mechanical Ventilator Mechanical Ventilator Mechanical Ventilator 02/14/19 08:00 40 02/14/19 08:00 24 Mechanical Ventilator 40 02/14/19 08:00 24 Mechanical Ventilator 40 02/14/19 08:00 68 24 128/55 (79) 96 02/14/19 07:30 96.7 71 24 127/54 (78) 98 02/14/19 07:15 70 24 98 Mechanical Ventilator 40 02/14/19 07:00 74 24 138/64 (88) 100 02/14/19 07:00 24 Mechanical Ventilator 40 02/14/19 07:00 24 40 02/14/19 06:56 77 25 98 Mechanical Ventilator 40 02/14/19 06:52 72 24 40 02/14/19 06:30 77 24 164/62 (96) 100 02/14/19 06:00 72 24 182/83 (116) 100 02/14/19 06:00 24 Mechanical Ventilator 40 02/14/19 06:00 24 Mechanical Ventilator 40 02/14/19 05:49 151/70 02/14/19 05:49 151/70 02/14/19 05:30 73 24 163/73 (103) 100 02/14/19 05:07 77 25 40 02/14/19 05:00 73 24 151/70 (97) 100 02/14/19 05:00 24 Mechanical Ventilator 40 02/14/19 05:00 24 Mechanical Ventilator 40 02/14/19 04:30 76 24 145/66 (92) 100 02/14/19 04:00 98.3 80 24 167/81 (109) 100 02/14/19 04:00 75 02/14/19 04:00 24 Mechanical Ventilator 40 02/14/19 04:00 24 Mechanical Ventilator 40 02/14/19 04:00 Mechanical Ventilator Mechanical Ventilator Mechanical Ventilator 02/14/19 04:00 40 02/14/19 03:41 24 Mechanical Ventilator 40 02/14/19 03:30 69 24 170/82 (111) 97 02/14/19 03:24 68 24 100 Mechanical Ventilator 40 02/14/19 03:13 65 24 40 02/14/19 03:13 65 24 97 Mechanical Ventilator 40 02/14/19 03:00 67 24 138/64 (88) 98 02/14/19 03:00 24 Mechanical Ventilator 40 02/14/19 03:00 24 Mechanical Ventilator 40 02/14/19 02:30 65 24 130/61 (84) 97 02/14/19 02:00 66 24 131/62 (85) 97 02/14/19 02:00 24 Mechanical Ventilator 40 02/14/19 02:00 24 Mechanical Ventilator 40 02/14/19 01:30 69 24 149/75 (99) 99 02/14/19 01:22 70 24 40 02/14/19 01:00 68 24 135/64 (87) 97 02/14/19 01:00 24 Mechanical Ventilator 40 02/14/19 01:00 24 Mechanical Ventilator 40 02/14/19 00:00 97.8 68 24 150/72 (98) 98 02/14/19 00:00 24 Mechanical Ventilator 40 02/14/19 00:00 24 Mechanical Ventilator 40 02/14/19 00:00 40 02/14/19 00:00 Mechanical Ventilator Mechanical Ventilator Mechanical Ventilator 02/14/19 00:00 68 02/13/19 23:46 133/60 02/13/19 23:46 133/60 02/13/19 23:20 66 24 99 Mechanical Ventilator 40 02/13/19 23:13 68 24 97 Mechanical Ventilator 40 02/13/19 23:12 67 24 40 02/13/19 23:00 67 24 169/80 (109) 97 02/13/19 23:00 24 Mechanical Ventilator 40 02/13/19 23:00 24 Mechanical Ventilator 40 02/13/19 22:04 69 24 40 02/13/19 22:00 67 24 173/82 (112) 96 02/13/19 22:00 24 Mechanical Ventilator 40 02/13/19 22:00 24 Mechanical Ventilator 40 02/13/19 21:00 24 Mechanical Ventilator 40 02/13/19 21:00 24 Mechanical Ventilator 40 02/13/19 21:00 70 24 208/92 (130) 97 02/13/19 20:34 70 159/68 02/13/19 20:00 67 02/13/19 20:00 20 Mechanical Ventilator 40 02/13/19 20:00 24 Mechanical Ventilator 40 02/13/19 20:00 40 02/13/19 20:00 98.0 72 24 153/66 (95) 97 02/13/19 20:00 Mechanical Ventilator Mechanical Ventilator Mechanical Ventilator 02/13/19 19:15 70 24 100 Mechanical Ventilator 40 02/13/19 19:07 69 24 98 Mechanical Ventilator 40 02/13/19 19:04 69 24 40 02/13/19 19:00 70 24 159/68 (98) 100 02/13/19 19:00 24 Endotracheal Tube 40 02/13/19 19:00 24 Mechanical Ventilator 40 02/13/19 18:30 69 24 151/66 (94) 97 02/13/19 18:06 150/61 02/13/19 18:00 24 Mechanical Ventilator 40 02/13/19 18:00 24 Mechanical Ventilator 40 02/13/19 18:00 69 24 150/61 (90) 98 02/13/19 17:30 70 24 153/63 (93) 98 02/13/19 17:18 68 24 40 02/13/19 17:00 70 24 144/64 (90) 98 02/13/19 17:00 24 Mechanical Ventilator 40 02/13/19 17:00 26 Mechanical Ventilator 40 02/13/19 16:55 97.6 02/13/19 16:30 70 24 137/95 (109) 98 02/13/19 16:25 24 Mechanical Ventilator 50.0 40 02/13/19 16:25 24 Mechanical Ventilator 50.0 40 02/13/19 16:00 Mechanical Ventilator Mechanical Ventilator Mechanical Ventilator 02/13/19 16:00 68 02/13/19 16:00 97.8 68 24 140/62 (88) 97 02/13/19 16:00 40 02/13/19 15:30 72 24 206/95 (132) 98 02/13/19 15:28 24 194/95 Mechanical Ventilator 40 02/13/19 15:13 88 24 100 Mechanical Ventilator 40 02/13/19 15:12 81 24 40 02/13/19 15:04 81 24 100 Mechanical Ventilator 40 Intake and Output 02/13/19 02/14/19 19:00 07:00 Intake Total 1679.919 ml 2906.0 ml Output Total 820 ml 1030 ml Balance 859.919 ml 1876.0 ml Free Water 120 ml 120 ml IV Total 1139.919 ml 2366.0 ml Tube Feeding 420 ml 420 ml Output Urine Total 820 ml 1030 ml Laboratory Tests Test 02/13/19 16:10 02/14/19 04:30 02/14/19 07:20 Arterial Blood pH 7.279 (7.350-7.450) 7.366 (7.350-7.450) Arterial Blood Partial Pressure CO2 33.7 mmHg (35.0-45.0) L 33.5 mmHg (35.0-45.0) L Arterial Blood Partial Pressure O2 71.4 mmHg (75.0-100.0) L 71.2 mmHg (75.0-100.0) L Arterial Blood HCO3 15.4 mmol/L (22.0-26.0) *L 18.8 mmol/L (22.0-26.0) L Arterial Blood Oxygen Saturation 92.2 % (95-100) L 92.5 % (95-100) L Arterial Blood Base Excess -10.3 (-2-2) *L -5.9 (-2-2) L Benny Test Positive Positive White Blood Count 6.3 K/UL (4.8-10.8) Red Blood Count 3.10 M/UL (4.70-6.10) L Hemoglobin 8.5 G/DL (14.2-18.0) L Hematocrit 26.4 % (42.0-52.0) L Mean Corpuscular Volume 85 FL (80-99) Mean Corpuscular Hemoglobin 27.5 PG (27.0-31.0) Mean Corpuscular Hemoglobin Concent 32.2 G/DL (32.0-36.0) Red Cell Distribution Width 18.3 % (11.6-14.8) H Platelet Count 224 K/UL (150-450) Mean Platelet Volume 6.4 FL (6.5-10.1) L Neutrophils (%) (Auto) 75.1 % (45.0-75.0) H Lymphocytes (%) (Auto) 15.2 % (20.0-45.0) L Monocytes (%) (Auto) 8.9 % (1.0-10.0) Eosinophils (%) (Auto) 0.2 % (0.0-3.0) Basophils (%) (Auto) 0.6 % (0.0-2.0) Sodium Level 144 MMOL/L (136-145) Potassium Level 4.5 MMOL/L (3.5-5.1) Chloride Level 111 MMOL/L (98-107) H Carbon Dioxide Level 22 MMOL/L (21-32) Anion Gap 12 mmol/L (5-15) Blood Urea Nitrogen 68 mg/dL (7-18) H Creatinine 3.5 MG/DL (0.55-1.30) H Estimat Glomerular Filtration Rate 18.0 mL/min (>60) Glucose Level 158 MG/DL (74-106) H Uric Acid 6.4 MG/DL (2.6-7.2) Calcium Level 7.7 MG/DL (8.5-10.1) L Phosphorus Level 5.3 MG/DL (2.5-4.9) H Magnesium Level 2.9 MG/DL (1.8-2.4) H Total Bilirubin 0.3 MG/DL (0.2-1.0) Gamma Glutamyl Transpeptidase 417 U/L (5-85) H Aspartate Amino Transf (AST/SGOT) 35 U/L (15-37) Alanine Aminotransferase (ALT/SGPT) 59 U/L (12-78) Alkaline Phosphatase 183 U/L (46-116) H C-Reactive Protein, Quantitative 4.3 mg/dL (0.00-0.90) H Pro-B-Type Natriuretic Peptide 6855 pg/mL (0-125) H Total Protein 5.7 G/DL (6.4-8.2) L Albumin 1.9 G/DL (3.4-5.0) L Globulin 3.8 g/dL Albumin/Globulin Ratio 0.5 (1.0-2.7) L Random Vancomycin Level 14.1 ug/mL Height (Feet): 6 Height (Inches): 0.00 Weight (Pounds): 213 Medications Current Medications Medications (Trade) Dose Ordered Sig/Marquis Route PRN Reason Start Time Stop Time Status Last Admin Dose Admin Acetaminophen (Tylenol) 650 mg Q4H PRN ORAL Mild Pain (Pain Scale 1-3) 02/07/19 11:15 03/08/19 17:29 02/07/19 23:01 Acetaminophen/ Butalbital/ Caffeine (Fioricet) 1 tab Q8H PRN ORAL For Headache 02/08/19 17:15 03/10/19 17:14 Alprazolam (Xanax) 0.5 mg Q6H PRN ORAL For Anxiety 02/08/19 20:15 02/15/19 20:14 02/13/19 14:01 Amlodipine Besylate (Norvasc) 10 mg DAILY NG 02/15/19 09:00 03/14/19 15:59 Aspirin (Ecotrin) 81 mg DAILY ORAL 02/08/19 09:00 03/09/19 08:59 02/14/19 08:42 Atorvastatin Calcium (Lipitor) 40 mg QHS ORAL 02/08/19 21:00 03/10/19 20:59 02/13/19 20:34 Bisacodyl (Dulcolax) 5 mg DAILYPRN PRN ORAL Constipation 02/08/19 17:15 03/10/19 17:14 02/13/19 20:34 Chlorhexidine Gluconate (Jessy-Hex 2%) 1 applic DAILY@2000 TOPIC 02/13/19 20:00 03/15/19 19:59 02/13/19 20:33 Dextrose (Dextrose 50%) 25 ml Q30M PRN IV HYPOGLYCEMIA 02/11/19 17:15 03/13/19 17:14 Dextrose (Dextrose 50%) 50 ml Q30M PRN IV HYPOGLYCEMIA 02/11/19 17:15 03/13/19 17:14 Docusate Sodium (Colace) 100 mg TID GT 02/12/19 18:00 03/12/19 08:59 02/14/19 12:20 Enoxaparin Sodium (Lovenox) 40 mg Q24H SUBQ 02/07/19 21:00 03/08/19 20:59 02/12/19 20:03 Fentanyl Citrate 2500 mcg/Sodium Chloride 250 ml @ 0 mls/hr Q24H IV 02/13/19 15:45 02/20/19 15:44 02/13/19 16:25 Fluconazole/ Sodium Chloride 100 ml @ 100 mls/hr Q24H IV 02/14/19 18:00 02/21/19 17:59 Guaifenesin (Mucinex ER) 600 mg TWICE A DAY ORAL 02/07/19 18:00 03/09/19 08:59 02/14/19 08:42 Heparin Sodium/ Sodium Chloride (Heparin 1000 units/500ml Premix) 1,000 unit ONCE PRN IV picc line placement 02/13/19 10:00 02/15/19 09:59 Hydralazine HCl (Apresoline) 25 mg Q4H PRN NG SBP > 160mmHg 02/12/19 16:00 03/08/19 11:14 Hydralazine HCl (Apresoline) 50 mg Q6HR NG 02/14/19 00:00 03/14/19 17:59 02/14/19 12:21 Insulin Human Regular (NovoLIN R) 5 units PRN PRN IV BS 200-299 02/11/19 17:15 03/13/19 17:14 02/14/19 14:08 Insulin Human Regular (NovoLIN R) 10 units PRN PRN IV BS=>300 02/11/19 17:15 03/13/19 17:14 02/13/19 02:05 Insulin Human Regular 100 units/ Sodium Chloride 100 ml @ 0 mls/hr Q24H IV 02/12/19 10:42 03/14/19 10:41 02/14/19 01:29 Isosorbide Dinitrate (Isordil) 10 mg Q6HR NG 02/13/19 13:00 03/15/19 12:59 02/14/19 12:20 Lansoprazole (Prevacid) 30 mg BID NG 02/12/19 18:00 03/14/19 17:59 02/14/19 08:42 Lidocaine HCl (Xylocaine 1% 30ml) 30 ml ONCE PRN INJ picc line placement 02/13/19 10:00 02/15/19 09:59 Methylprednisolone Sodium Succinate (Solu-MEDROL) 30 mg EVERY 12 HOURS IVP 02/13/19 21:00 03/12/19 20:59 02/14/19 08:42 Metoprolol Tartrate (Lopressor) 100 mg Q12HR ORAL 02/07/19 21:00 03/08/19 20:59 02/14/19 08:42 Midazolam HCl (Versed 2mg/2ml vial) 1 mg Q2H PRN IVP Agitation 02/13/19 08:45 03/15/19 08:44 02/14/19 05:49 Midazolam HCl 50 mg/Sodium Chloride 100 ml @ 0 mls/hr Q24H IV 02/13/19 15:45 02/20/19 15:44 02/14/19 12:21 Miscellaneous Medication (Insulin Rate Change) 1 ea PRN PRN MISC Per rx protocol 02/11/19 17:15 03/13/19 17:14 02/13/19 20:18 Nitroglycerin (Ntg) 0.4 mg Q5M PRN SL Prn Chest Pain 02/07/19 11:00 03/08/19 17:29 02/08/19 07:42 Ondansetron HCl (Zofran) 4 mg Q6H PRN IVP Nausea & Vomiting 02/07/19 11:15 03/08/19 11:14 02/09/19 00:58 Patient Own Medication (Patient's Own Med) 1 ea BID ORAL 02/07/19 18:00 03/09/19 17:59 02/14/19 08:41 Patient Own Medication (Patient's Own Med) 1 ea Q72H ORAL 02/16/19 09:00 03/15/19 08:59 Patient Own Medication (Patient's Own Med) 2 ea DAILY ORAL 02/08/19 09:00 03/10/19 08:59 02/14/19 08:41 Piperacillin Sod/ Tazobactam Sod 3.375 gm/Sodium Chloride 110 ml @ 27.5 mls/hr Q12HR@0600,1800 IVPB 02/11/19 18:00 02/18/19 17:59 02/14/19 05:49 Polyethylene Glycol (Miralax) 17 gm BEDTIME ORAL 02/08/19 21:00 03/10/19 20:59 02/13/19 20:33 Sennosides (Senokot) 8.6 mg DAILY ORAL 02/13/19 12:00 03/15/19 11:59 02/14/19 08:42 Sodium Bicarbonate 150 ml/Sodium Chloride 1,150 ml @ 100 mls/hr [id number] IV 02/13/19 18:00 03/15/19 17:59 02/14/19 05:50 Sodium Citrate (Bicitra) 30 ml EVERY 6 HOURS NG 02/13/19 12:15 03/15/19 12:14 02/14/19 12:20 Trimethoprim/ Sulfamethoxazole 25 ml/Dextrose 575 ml @ 383.333 mls/hr Q12HR@0000,1200 IV 02/11/19 12:00 02/18/19 11:59 02/14/19 12:21 Vancomycin HCl (Vanco rx to dose) 1 ea DAILY PRN MISC . 02/10/19 19:45 03/12/19 19:44 Assessment/Plan Problem List: (1) AIDS ICD Codes: B20 - Human immunodeficiency virus [HIV] disease SNOMED: 76229484 (2) Anemia ICD Codes: D64.9 - Anemia, unspecified SNOMED: 797950505 (3) Anxiety ICD Codes: F41.9 - Anxiety disorder, unspecified SNOMED: 90055615 (4) Diabetes ICD Codes: E11.9 - Type 2 diabetes mellitus without complications SNOMED: 64845696 (5) Hypertension ICD Codes: I10 - Essential (primary) hypertension SNOMED: 76672933 (6) HIV disease ICD Codes: B20 - Human immunodeficiency virus [HIV] disease SNOMED: 76668979 (7) CKD (chronic kidney disease) ICD Codes: N18.9 - Chronic kidney disease, unspecified SNOMED: 645315292 (8) History of stroke ICD Codes: Z86.73 - Personal history of transient ischemic attack (TIA), and cerebral infarction without residual deficits SNOMED: 991534290 (9) NSTEMI (non-ST elevated myocardial infarction) ICD Codes: I21.4 - Non-ST elevation (NSTEMI) myocardial infarction SNOMED: 13958851 (10) MDD (major depressive disorder), recurrent episode, moderate ICD Codes: F33.1 - Major depressive disorder, recurrent, moderate SNOMED: 99680893, 550467749 (11) Respiratory distress ICD Codes: R06.03 - Acute respiratory distress SNOMED: 018206464 (12) Hypoxia ICD Codes: R09.02 - Hypoxemia SNOMED: 568333143, 630912070, 569257216 (13) HIV (human immunodeficiency virus infection) ICD Codes: B20 - Human immunodeficiency virus [HIV] disease SNOMED: 41347897 (14) Acute coronary syndrome ICD Codes: I24.9 - Acute ischemic heart disease, unspecified SNOMED: 919075922 (15) Elevated troponin ICD Codes: R74.8 - Abnormal levels of other serum enzymes SNOMED: 184602324, 037831428, 906735283 (16) Pneumonia ICD Codes: J18.9 - Pneumonia, unspecified organism SNOMED: 836406881 (17) Acute hypoxemic respiratory failure ICD Codes: J96.01 - Acute respiratory failure with hypoxia SNOMED: 492309484 (18) Endotracheally intubated ICD Codes: Z97.8 - Presence of other specified devices SNOMED: 837906355 (19) ISH (acute kidney injury) ICD Codes: N17.9 - Acute kidney failure, unspecified SNOMED: 06569721 (20) Uncontrolled type 2 diabetes mellitus with chronic kidney disease ICD Codes: E11.22 - Type 2 diabetes mellitus with diabetic chronic kidney disease; E11.65 - Type 2 diabetes mellitus with hyperglycemia SNOMED: 42172641, 486671994, 281960142 (21) Malignant hypertension ICD Codes: I10 - Essential (primary) hypertension SNOMED: 31247835 (22) Anemia ICD Codes: D64.9 - Anemia, unspecified SNOMED: 782787426 (23) Hypertensive encephalopathy ICD Codes: I67.4 - Hypertensive encephalopathy SNOMED: 93529333 (24) Hyponatremia ICD Codes: E87.1 - Hypo-osmolality and hyponatremia SNOMED: 87871279 (25) Psoriasis ICD Codes: L40.9 - Psoriasis, unspecified SNOMED: 0170230 (26) Foot ulcer ICD Codes: L97.509 - Non-pressure chronic ulcer of other part of unspecified foot with unspecified severity SNOMED: 20350036, 47164856 (27) Sepsis ICD Codes: A41.9 - Sepsis, unspecified organism SNOMED: 04890889 (28) Diabetic nephropathy ICD Codes: E11.21 - Type 2 diabetes mellitus with diabetic nephropathy SNOMED: 790314753 (29) Abnormal EKG ICD Codes: R94.31 - Abnormal electrocardiogram [ECG] [EKG] SNOMED: 866723284 (30) Multiple lacunar infarcts ICD Codes: I63.9 - Cerebral infarction, unspecified SNOMED: 435646778 (31) Dizziness of unknown cause ICD Codes: R42 - Dizziness and giddiness SNOMED: 490301827 (32) extensive ischemic cerebrovasculat disease, multple old lacunar strokes. (33) acute small R pontomedullary and left cerebellar peduncle strokes. (34) r/o cerebellar stroke (35) acute ischemic FINANCE LEAD stroke, bylateral (36) Bylateral FINANCE LEAD severe stenosis Status: unchanged Assessment/Plan: Q2 Neuro Obs Na 135-145 No imaging possible at this time. SBP<140 Maintain normoglycemia with ISS Check TSH Check HgBA1c Lubricant Eye drops/ Abx+Steroid eye drops for chemosis - cool compresses This was a critical care consultation lasting greater than 40 minutes. Charlee Whittington N.P. Feb 14, 2019 15:03
--- NOTE | 2019-02-14 17:01 | NUR ---
NURSE NOTES: Changed desiree cath dressing, bleeding noted. On going insulin drip at 5.5 u/hr. Patient lightly sedated.
[2019-02-14] MEDS: fentaNYL Citrate 2,500 MCG in NS 200 ML IV SCH (17:38)
--- NOTE | 2019-02-14 18:23 | NUR ---
NURSE NOTES: Issentress 400mg not given at 1800 because accidently gave x2 dose this morning. Notified Dr. Duval and PMD. No new orders given. Notified CN and pharmacistFrancesca.
--- NOTE | 2019-02-14 18:53 | NUR ---
CASE MANAGEMENT: REVIEW SI: SEPSIS . BILATERAL INFILTRATES . RESP FAILURE . ARDS FLEXIBLE FIBEROPTIC BRONCHOSCOPY AND BRONCHOALVEOLAR LAVAGE 02/09 LEFT FEMORAL TEMPORARY HEMODIALYSIS CATHETER INSERTION 02/13 T 96.8 HR 69 RR 24 BP 100/56 SAT 99% MECH VENT FIO2 40 H/H 8.5/26.4 BUN 68 CR 3.5 PHOS 5.3 MAG 2.9 IS: BACTRIM IV Q12HR INSULIN GTT VERSED GTT FENTANYL GTT SODIUM BICARB IV@100ML/HR DIFLUCAN IV Q24HR SOLU MEDROL IV Q12HR ZOSYN IV Q12HR ISOSORBIDE PO Q6HR METOPROLOL PO Q12HR OROGASTRIC TUBE FEEDING GLUCERNA 1.5 ICU STATUS DCP: PATIENT IS FROM HOME
--- NOTE | 2019-02-14 19:10 | NUR ---
HAND-OFF: Report given to TESSA Bell using SBAR.
--- NOTE | 2019-02-14 19:30 | NUR ---
NURSE NOTES: Received pt in no acute distress. Currently sedated with Fentanyl gtt at 150mcg/h and Versed gtt at 8mg/h to RASS-2. Pt remains orally intubated and appears to be tolerating current vent parameters. fiO2.40, saturating 96-89%. Secretions small amt, white; chest sounds with scattered rhonchi. Bilat soft wrist restraints on as pt tends to be impulsive when awake. PIV sites on RAC, Lwrist LFA all intact as well as João cath on left femoral area with pigtail. Pt also on Insulin gtt currently running at 5.5 units/h on algorithm 4. Main IVF of 1/2NS with 3 amps Na Bicarb running at 100ml/h; OGT in situ and TF with Glucerna 1.5 infuses at 35ml/h with 0 residuals. FC patent, draining good amt of clear yellow urine. Skin warm, dry and intact. Will continue to monitor BS q2h and sedation and VS q 30 mins
[2019-02-14] MEDS: Dyna-Hex 2% Top Sol 2oz TOPIC SCH (20:49)
[2019-02-14] MEDS: Atorvastatin 20mg tab ORAL SCH (20:50)
[2019-02-14] MEDS: Miralax 17gm pkt ORAL SCH (20:51)
[2019-02-14] MEDS: Enoxaparin 40mg Inj SUBQ SCH (20:52)
--- NOTE | 2019-02-14 21:23 | General Progress Note ---
Assessment/Plan Status: stable Assessment/Plan: 58 y Male admitted to the hospital due to fever, shortness of breath and chest pain. # Multilobar pneumonia in patient with HIV- worse - Broad sp atbx. Will continue Zosyn, Vancomycin and Azithromycin - Bactrim added for PCP coverage - Droplet precaution -DCed - Oxygen support - ID consult appreciated. AFB, cocci, hystoplasma, legionella, ordered. . - Patient s/p emergent bronchoscopy given florid ARDS # Acute Hypoxemic respiratory failure # ARDS - improved - Cont mechanical ventilation, changed to pressure control - s/p emergent bronchoscopy - Due to pneumonia # NSTEMI - EKG with bifascicular block RBB and LAFB, no ST changes. - Trend troponin x3 - ECHO completed with no WMA and preserved EF. Dr. Francois consulted. Consideration for outpatient cath vs possibly myocarditis due to underlying viral infection. No evidence of Takotsubo per TTE. - NGT prn - Pain control with morphine # HIV - Continue HARRT - VL is undetectable per patient report. 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 - Trend renal function -Nephrology consulted -may need HD -avoid nephrotoxic meds DVT and GI ppx Full code A total of 35 mins of critical care time was spent on this patient, dealing with hypoxemic resp failure requiring continuous mechanical ventilation, reviewing telemetry data, discussion with bedside UTILITY HAND Subjective Date patient seen: Feb 14, 2019 Allergies: Coded Allergies: No Known Allergies (Unverified , 02/05/13) Subjective No acute overnight event, O2 requirement decreased, PEEP decreased to 5, pt remains sedated and intubated in ICU, propofol d/c 2/2 hypertriglycemia, Objective Last 24 Hour Vital Signs Date Time Temp Pulse Resp B/P (MAP) Pulse Ox O2 Delivery O2 Flow Rate FiO2 02/14/19 20:50 70 137/53 02/14/19 20:00 Mechanical Ventilator Mechanical Ventilator Mechanical Ventilator 02/14/19 20:00 69 02/14/19 20:00 24 Mechanical Ventilator 40 02/14/19 20:00 24 Mechanical Ventilator 40 02/14/19 20:00 40 02/14/19 20:00 69 24 138/58 (84) 98 02/14/19 19:30 98.2 69 24 135/56 (82) 99 02/14/19 19:18 69 24 40 02/14/19 19:17 Mechanical Ventilator 40 02/14/19 19:17 Mechanical Ventilator 40 02/14/19 19:00 24 Mechanical Ventilator 40 02/14/19 19:00 24 Mechanical Ventilator 40 02/14/19 19:00 69 24 131/53 (79) 97 02/14/19 18:30 68 24 100/56 (71) 97 02/14/19 18:08 96.8 02/14/19 18:00 24 Mechanical Ventilator 40 02/14/19 18:00 24 Mechanical Ventilator 40 02/14/19 18:00 69 24 127/53 (77) 99 02/14/19 17:39 24 Mechanical Ventilator 50.0 40 02/14/19 17:38 127/52 02/14/19 17:38 24 Mechanical Ventilator 50.0 40 02/14/19 17:38 127/52 02/14/19 17:30 69 24 130/54 (79) 99 02/14/19 17:00 24 Mechanical Ventilator 40 02/14/19 17:00 24 Mechanical Ventilator 40 02/14/19 17:00 69 24 129/55 (79) 96 02/14/19 16:38 69 24 40 02/14/19 16:30 71 24 126/54 (78) 99 02/14/19 16:00 40 02/14/19 16:00 24 Mechanical Ventilator 40 02/14/19 16:00 24 Mechanical Ventilator 40 02/14/19 16:00 82 02/14/19 16:00 Mechanical Ventilator Mechanical Ventilator Mechanical Ventilator 02/14/19 16:00 96.8 70 24 126/56 (79) 95 02/14/19 15:30 72 24 127/52 (77) 99 02/14/19 15:00 24 Mechanical Ventilator 40 02/14/19 15:00 24 Mechanical Ventilator 40 02/14/19 15:00 72 24 129/59 (82) 94 02/14/19 14:52 77 24 96 Mechanical Ventilator 40 02/14/19 14:42 77 24 40 02/14/19 14:42 77 24 95 Mechanical Ventilator 40 02/14/19 14:30 84 24 168/77 (107) 100 02/14/19 14:00 86 24 157/74 (101) 100 02/14/19 14:00 24 Mechanical Ventilator 40 02/14/19 14:00 24 Mechanical Ventilator 40 02/14/19 13:30 83 24 155/77 (103) 100 02/14/19 13:09 77 24 40 02/14/19 13:00 87 24 129/60 (83) 100 02/14/19 13:00 24 Mechanical Ventilator 40 02/14/19 13:00 24 Mechanical Ventilator 40 02/14/19 12:30 73 24 135/63 (87) 100 02/14/19 12:21 129/55 02/14/19 12:21 24 Mechanical Ventilator 50.0 40 02/14/19 12:20 129/55 02/14/19 12:00 40 02/14/19 12:00 75 02/14/19 12:00 97.1 69 24 127/41 (69) 100 02/14/19 12:00 24 Mechanical Ventilator 40 02/14/19 12:00 24 Mechanical Ventilator 40 02/14/19 12:00 Mechanical Ventilator Mechanical Ventilator Mechanical Ventilator 02/14/19 11:30 69 24 129/55 (79) 100 02/14/19 11:00 24 Mechanical Ventilator 40 02/14/19 11:00 24 Mechanical Ventilator 40 02/14/19 11:00 70 24 129/54 (79) 93 02/14/19 10:47 75 24 96 Mechanical Ventilator 40 02/14/19 10:39 70 24 40 02/14/19 10:38 70 24 96 Mechanical Ventilator 40 02/14/19 10:30 71 24 135/58 (83) 94 02/14/19 10:00 24 Mechanical Ventilator 40 02/14/19 10:00 24 Mechanical Ventilator 40 02/14/19 10:00 71 24 164/71 (102) 96 02/14/19 09:30 65 24 130/59 (82) 96 02/14/19 09:00 67 24 130/59 (82) 97 02/14/19 09:00 24 Mechanical Ventilator 40 02/14/19 09:00 24 Mechanical Ventilator 40 02/14/19 09:00 24 Mechanical Ventilator 40 02/14/19 08:51 76 24 40 02/14/19 08:42 70 138/64 02/14/19 08:42 70 138/64 02/14/19 08:30 70 24 135/60 (85) 97 02/14/19 08:00 81 02/14/19 08:00 Mechanical Ventilator Mechanical Ventilator Mechanical Ventilator 02/14/19 08:00 40 02/14/19 08:00 24 Mechanical Ventilator 40 02/14/19 08:00 24 Mechanical Ventilator 40 02/14/19 08:00 68 24 128/55 (79) 96 02/14/19 07:30 96.7 71 24 127/54 (78) 98 02/14/19 07:15 70 24 98 Mechanical Ventilator 40 02/14/19 07:00 74 24 138/64 (88) 100 02/14/19 07:00 24 Mechanical Ventilator 40 02/14/19 07:00 24 40 02/14/19 06:56 77 25 98 Mechanical Ventilator 40 02/14/19 06:52 72 24 40 02/14/19 06:30 77 24 164/62 (96) 100 02/14/19 06:00 72 24 182/83 (116) 100 02/14/19 06:00 24 Mechanical Ventilator 40 02/14/19 06:00 24 Mechanical Ventilator 40 02/14/19 05:49 151/70 02/14/19 05:49 151/70 02/14/19 05:30 73 24 163/73 (103) 100 02/14/19 05:07 77 25 40 02/14/19 05:00 73 24 151/70 (97) 100 02/14/19 05:00 24 Mechanical Ventilator 40 02/14/19 05:00 24 Mechanical Ventilator 40 02/14/19 04:30 76 24 145/66 (92) 100 02/14/19 04:00 98.3 80 24 167/81 (109) 100 02/14/19 04:00 75 02/14/19 04:00 24 Mechanical Ventilator 40 02/14/19 04:00 24 Mechanical Ventilator 40 02/14/19 04:00 Mechanical Ventilator Mechanical Ventilator Mechanical Ventilator 02/14/19 04:00 40 02/14/19 03:41 24 Mechanical Ventilator 40 02/14/19 03:30 69 24 170/82 (111) 97 02/14/19 03:24 68 24 100 Mechanical Ventilator 40 02/14/19 03:13 65 24 40 02/14/19 03:13 65 24 97 Mechanical Ventilator 40 02/14/19 03:00 67 24 138/64 (88) 98 02/14/19 03:00 24 Mechanical Ventilator 40 02/14/19 03:00 24 Mechanical Ventilator 40 02/14/19 02:30 65 24 130/61 (84) 97 02/14/19 02:00 66 24 131/62 (85) 97 02/14/19 02:00 24 Mechanical Ventilator 40 02/14/19 02:00 24 Mechanical Ventilator 40 02/14/19 01:30 69 24 149/75 (99) 99 02/14/19 01:22 70 24 40 02/14/19 01:00 68 24 135/64 (87) 97 02/14/19 01:00 24 Mechanical Ventilator 40 02/14/19 01:00 24 Mechanical Ventilator 40 02/14/19 00:00 97.8 68 24 150/72 (98) 98 02/14/19 00:00 24 Mechanical Ventilator 40 02/14/19 00:00 24 Mechanical Ventilator 40 02/14/19 00:00 40 02/14/19 00:00 Mechanical Ventilator Mechanical Ventilator Mechanical Ventilator 02/14/19 00:00 68 02/13/19 23:46 133/60 02/13/19 23:46 133/60 02/13/19 23:20 66 24 99 Mechanical Ventilator 40 02/13/19 23:13 68 24 97 Mechanical Ventilator 40 02/13/19 23:12 67 24 40 02/13/19 23:00 67 24 169/80 (109) 97 02/13/19 23:00 24 Mechanical Ventilator 40 02/13/19 23:00 24 Mechanical Ventilator 40 02/13/19 22:04 69 24 40 02/13/19 22:00 67 24 173/82 (112) 96 02/13/19 22:00 24 Mechanical Ventilator 40 02/13/19 22:00 24 Mechanical Ventilator 40 Intake and Output 02/13/19 02/14/19 19:00 07:00 Intake Total 1679.919 ml 2937.5 ml Output Total 820 ml 1030 ml Balance 859.919 ml 1907.5 ml Free Water 120 ml 120 ml IV Total 1139.919 ml 2397.5 ml Tube Feeding 420 ml 420 ml Output Urine Total 820 ml 1030 ml Laboratory Tests 02/14/19 04:30: White Blood Count 6.3, Red Blood Count 3.10L, Hemoglobin 8.5L, Hematocrit 26.4L , Mean Corpuscular Volume 85, Mean Corpuscular Hemoglobin 27.5, Mean Corpuscular Hemoglobin Concent 32.2, Red Cell Distribution Width 18.3H, Platelet Count 224, Mean Platelet Volume 6.4L, Neutrophils (%) (Auto) 75.1H, Lymphocytes (%) (Auto) 15.2L, Monocytes (%) (Auto) 8.9, Eosinophils (%) (Auto) 0.2, Basophils (%) (Auto) 0.6, Sodium Level 144, Potassium Level 4.5, Chloride Level 111H, Carbon Dioxide Level 22, Anion Gap 12, Blood Urea Nitrogen 68H, Creatinine 3.5H, Estimat Glomerular Filtration Rate 18.0, Glucose Level 158H, Uric Acid 6.4, Calcium Level 7.7L, Phosphorus Level 5.3H, Magnesium Level 2.9H, Total Bilirubin 0.3, Gamma Glutamyl Transpeptidase 417H, Aspartate Amino Transf (AST/SGOT) 35, Alanine Aminotransferase (ALT/SGPT) 59, Alkaline Phosphatase 183H , C-Reactive Protein, Quantitative 4.3H, Pro-B-Type Natriuretic Peptide 6855H, Total Protein 5.7L, Albumin 1.9L, Globulin 3.8, Albumin/Globulin Ratio 0.5L, Random Vancomycin Level 14.1 02/14/19 07:20: Arterial Blood pH 7.366, Arterial Blood Partial Pressure CO2 33.5L, Arterial Blood Partial Pressure O2 71.2L, Arterial Blood HCO3 18.8L, Arterial Blood Oxygen Saturation 92.5L, Arterial Blood Base Excess -5.9L, Benny Test Positive Height (Feet): 6 Height (Inches): 0.00 Weight (Pounds): 213 Objective General Appearance: Intubated, sedated. WD/WN, no apparent distress EENT: intubated Neck: non-tender, normal alignment Cardiovascular: normal peripheral pulses, normal rate Respiratory/Chest: chest wall non-tender, lungs clear Abdomen: normal bowel sounds, non tender Extremities: normal range of motion, non-tender Edema: trace edema Neurologic: political worker II-XII grossly normal Sonja Douglas MD Feb 14, 2019 21:23
--- NOTE | 2019-02-14 22:00 | NUR ---
NURSE NOTES: Calm, remains sedated to RASS-2 with Fentanyl and Versed. Accucheck 143, continues on Insulin gtt at 5.5 units/h on algorithm 4.
--- NOTE | 2019-02-14 22:10 | NUR ---
NURSE NOTES: HS care done.Pos,chg.backrub with Lotion.Suctioned.Due general internal medicine doctor.Raul.NGT Feeding.NPO After MN.Marquis.for poss.PEG in am.No Distress. Addendum: 02/14/19 at 2246 by NICOL RUELAS RN Wrong patient...
[2019-02-15] VITALS (48 sets, daily range): BP systolic 132–169; BP diastolic 53–76
--- NOTE | 2019-02-15 00:30 | NUR ---
NURSE NOTES: Incontinent of large amt of greenish soft stool. Pt woke up on the process of cleaning that 4 staff needed to hold pt down. Increased Versed gtt to 10mg/h;Fentanyl still at 150mcg/h. Bilat soft wrist restraints maintained and renewed. Afebrile.
[2019-02-15] MEDS: Midazolam for drip 50 MG in NS 90 ML IV SCH ×5 (00:32→21:55)
[2019-02-15] MEDS: Insulin Rate Change 1 Each MISC PRN ×2 (02:00→04:00)
--- NOTE | 2019-02-15 02:00 | NUR ---
NURSE NOTES: blood glucose 190. Still on algorithm 4; increased Ins gtt to 8.5units/h. Calm, asleep at this time. IV sites intact. No distress.
[2019-02-15] MEDS: Albuterol/Ipratropium 3ml neb HHN SCH ×6 (02:55→22:56)
--- NOTE | 2019-02-15 04:00 | NUR ---
NURSE NOTES: AM care rendered. Pt waking up and getting restless/agitated. Versed gtt kept at 10mg/h; Fentanyl gtt at 150mcg/h. Afebrile. BP stable. No further BM. PIV sites patent; tolerating TF. Accucheck 204; Ins gtt up to 11units/h plus 5 units Reg Ins IVP per algorithm 4.
[2019-02-15] MEDS: Insulin Human Regular 100units/ml 3ml IV PRN ×2 (04:26→14:10)
[2019-02-15] MEDS: Sodium Bicarbonate 150 ML in 1/2 NS 1000ml 1,000 ML IV SCH ×2 (05:08→15:33)
[2019-02-15 05:19] LABS: HEMATOCRIT 25.1 % (42.0-52.0); HEMOGLOBIN 8.2 G/DL (14.2-18.0); MEAN CORPUSCULAR VOLUME 84 FL (80-99); PLATELET COUNT 205 K/UL (150-450); RED BLOOD COUNT 2.99 M/UL (4.70-6.10); RED CELL DISTRIBUTION WIDTH 17.8 % (11.6-14.8); WHITE BLOOD COUNT 4.7 K/UL (4.8-10.8)
[2019-02-15] MEDS: Zosyn 3.375gm q12h **Extended infusion IVPB SCH ×4 (05:34→18:10)
[2019-02-15] MEDS: Sodium Citrate 30ml NG SCH (05:35)
[2019-02-15] MEDS: HydrALAZINE 50mg tab NG SCH ×3 (05:35→18:10)
[2019-02-15 05:56] LABS: ALANINE AMINOTRANSFERASE 51 U/L (12-78); ALBUMIN 1.9 G/DL (3.4-5.0); ALBUMIN/GLOBULIN RATIO 0.5 (1.0-2.7); ALKALINE PHOSPHATASE 153 U/L (46-116); ANION GAP 9 mmol/L (5-15); ASPARTATE AMINO TRANSFERASE 30 U/L (15-37); BILIRUBIN,TOTAL 0.3 MG/DL (0.2-1.0); BLOOD UREA NITROGEN 66 mg/dL (7-18); CALCIUM 7.8 MG/DL (8.5-10.1); CARBON DIOXIDE 24 MMOL/L (21-32); CHLORIDE 114 MMOL/L (98-107); CREATININE 2.9 MG/DL (0.55-1.30); GAMMA GLUTAMYL TRANSPEPTIDASE 329 U/L (5-85); PHOSPHORUS 4.4 MG/DL (2.5-4.9); POTASSIUM 5.2 MMOL/L (3.5-5.1); SODIUM 147 MMOL/L (136-145)
--- NOTE | 2019-02-15 06:00 | NUR ---
NURSE NOTES: Calm, asleep. Lab reports troponin 2.367, trending down. Accucheck 180, Ins gtt down to 8.5 units/h. Good UOP.
--- NOTE | 2019-02-15 07:00 | NUR ---
RESPIRATORY NOTE: Received Patient on Vent, patient has a 7.5 ETT at 25cm at the lip, secured with anchorfast. Bilateral rhonchi noted throughout both lung almaguer. Vent alarms are on and audible. Vent plugged into red outlet. Will continue to monitor throughout the day.
--- NOTE | 2019-02-15 07:18 | NUR ---
HAND-OFF: Report given to Michael Tang RN.
--- NOTE | 2019-02-15 07:19 | NUR ---
NURSE NOTES: Received patient from [facility]. Patient sedated to Rass score of -2. Patient on Versed 10mg/hr (20mL/hr) and fentanyl 150mcg/hr (15mL/hr). Patient is intubated with 7.5cm endotracheal tube with 25cm at the lip line. Ventilator setting AC 25, tidal volume 600, FiO2 40%, and PEEP 5. Patient tolerating setting with oxygen saturation of 97%. Patient has an OGT that is patent, asymptomatic, and running tube feeding glucerna 1.5 at 35mL/hr. Patient is on insulin drip that is currently running at 8.5units/hr on algorithm 4. Patient has another blood sugar check at 8am. Will follow up and continue to monitor. Patient has a smith for urine retention that is putting out 100mL/hr of dark yellow urine. Patient is on bilateral soft wrist restraints. Patient witnessed attempting to removed ETT and OGT. Patient combative when not sedated. Patient has a left femoral Ritesh catheter with a pigtail that is patent and asymptomatic and running Versed and fentanyl. Patient has right wrist 20G PIV that is running 0.45% NS with 3mp of HCO3 at 100mL/hr, left wrist 20G PIV running insulin drip, and left forearm 20G PIV running Zosyn at 27.5mL/hr. All IV lines patent and asymptomatic at this time. Patient has generalized non-pitting edema. Patient abdomen is firm. Patient has SCDs on bilateral lower extremities. Patient has a potassium level of 5.2. this morning. Will notify Dr Mcdonald. Patient bed in low position with bed alarm on and call light in reach.
--- NOTE | 2019-02-15 08:01 | NUR ---
NURSE NOTES: Dr Mcdonald placing orders at this time. He is aware of potassium of 5.2.
[2019-02-15] MEDS ORDERED: Sodium Bicarbonate 150 ML in 1/2 NS 1000ml 1,000 ML IV SCH (08:06)
--- NOTE | 2019-02-15 08:10 | NUR ---
NURSE NOTES: Patient is difficult to arouse. He opened his eyes when the chest x-ray was taken, but he does not open his eyes or respond to neuro stimuli or his name. Reduced versed to 8mcg/hr. Will continue to monitor and titrate versed and fentanyl per protocol.
--- NOTE | 2019-02-15 08:17 | NUR ---
RADIOLOGY DEPT., CHEST X-RAY DONE.-P.DYE
--- NOTE | 2019-02-15 08:24 | NUR ---
NURSE NOTES: Spoke with Dr Mcdonald in person and he stated that he is aware of the serum potassium of 5.2. No new orders. I notified him that the patient has generalized edema non-pitting. He stated that he would take a look at it and order something if necessary.
[2019-02-15] MEDS: Docusate 100mg/10ml Liq GT SCH ×3 (08:50→18:10)
[2019-02-15] MEDS: guaiFENesin ER 600mg tab ORAL SCH ×2 (08:51→18:11)
[2019-02-15] MEDS: ETRAVIRINE 200 MG ORAL SCH (08:52)
[2019-02-15] MEDS: Sennosides 8.6mg tab ORAL SCH (08:54)
[2019-02-15] MEDS: Aspirin EC 81mg tab ORAL SCH (08:54)
[2019-02-15] MEDS: fentaNYL Citrate 2,500 MCG in NS 200 ML IV SCH (08:56)
--- NOTE | 2019-02-15 09:00 | NUR ---
NURSE NOTES: Prosource given.
[2019-02-15] MEDS: RALTEGRAVIR 400 MG ORAL SCH ×2 (09:06→18:11)
[2019-02-15] MEDS: Solu-MEDROL 40mg Inj IVP SCH ×2 (09:07→20:52)
--- NOTE | 2019-02-15 09:12 | NUR ---
NURSE NOTES: Spoke with hide trimmer. She reported that the patient should be increased to Glucerna 1.5 50mL/hr tube feeding to meet his caloric needs. Will contact MD and ask if the order can be changed.
--- NOTE | 2019-02-15 09:30 | NUR ---
NURSE NOTES: Suze Case RN witnessed waste of fentanyl drip and versed drip remainders when new bags were hung.
--- NOTE | 2019-02-15 09:32 | NUR ---
NURSE NOTES: Patient is becoming restless. Turned Versed drip to 9mcg/min. Will continue to monitor RASS score and titrate medication per protocol. Spoke with Dr Francois in person regarding patient current condition. Addendum: 02/15/19 at 1450 by Suze Tang RN correction: 9mcg/hr
--- NOTE | 2019-02-15 09:33 | Hematology/Onc Progress Note ---
Assessment/Plan Assessment/Plan ASSESSMENT AND RECOMMENDATIONS # Anemia of chronic disease due to underlying chronic medical issues, multifactorial --> Anemia workup has been reviewed. Ferritin 182 --> No evidence of hemolysis is noted, peripheral smear has been reviewed. --> Hgb goal >7. Transfuse prn. --> Epogen or iron at this time is not particularly indicated --> Medications have been reviewed --> low threshold for gi evaluation in case has occult + --> bone marrow biopsy is not indicated given the other more likely causes --> Blood tx: 1 unit on 02/10/19, --> Hgb trend: 7.6-->8.2-->9.4-->8.4-->8.2 # Thrombocytopenia - potential causes multifactorial, likely related to HIV status --> Hep panel pending and HIV confirmed positive --> US abd to evaluate for cirrhosis and hsm ordered --> Peripheral smear ordered to evaluate for blasts /schistocytes --> abx and other meds have been reviewed --> ok for ppx if plt >50k w/ either heparin or lovenox --> Transfuse if Plt < 20k and fever, or if Plt < 10k without fever --> Plt trend: 153-->257-->224-->205 --> WILLIAM screen negative # Multilobar pneumonia in patient with HIV. Recs per ID. --> Broad sp atbx started. Continue Zosyn, Vancomycin and Azithromycin --> Droplet precaution # Hypoxemic respiratory failure. Pulm is following, appreciate recs. --> Bipap as needed, transition to O2 via NC when able --> Due to pneumonia, on abx # Chest pain. 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 --> Trend troponin x3 --> NGT prn # HIV. --> Continue HARRT --> VL is undetectable per patient report. # HTN --> Resume home medication # DVT and GI ppx The time the note is entered does not reflect the time the patient was examined. I greatly appreciate the consultation. Subjective ROS Limited/Unobtainable: Yes Hematologic/Lymphatic: Reports: anemia Allergies: Coded Allergies: No Known Allergies (Unverified , 6/17/13) Subjective 02/11: Hgb yesterday was 7.6, s/p 1 unit prbc. Current hgb at 8.2. Pt attempted to pull out tubes per nursing team, soft restraints applied. 02/13: Pt in ICU and intubated. Pt currently sedated. Current hgb 9.4. 02/14: Pt remains in icu, sedated. Hgb stable. 02/15: Remains in icu, lethargic. No acute events. Hgb stable. Objective Objective Current Medications Medications (Trade) Dose Ordered Sig/Marquis Route PRN Reason Start Time Stop Time Status Last Admin Dose Admin Acetaminophen (Tylenol) 650 mg Q4H PRN ORAL Mild Pain (Pain Scale 1-3) 02/07/19 11:15 03/08/19 17:29 02/07/19 23:01 Acetaminophen/ Butalbital/ Caffeine (Fioricet) 1 tab Q8H PRN ORAL For Headache 02/08/19 17:15 03/10/19 17:14 Albuterol/ Ipratropium (Albuterol/ Ipratropium) 3 ml Q4HRT HHN 02/14/19 23:00 02/19/19 22:59 02/15/19 06:57 Alprazolam (Xanax) 0.5 mg Q6H PRN ORAL For Anxiety 02/08/19 20:15 02/15/19 20:14 02/13/19 14:01 Amlodipine Besylate (Norvasc) 10 mg DAILY NG 02/15/19 09:00 03/14/19 15:59 02/15/19 08:54 Aspirin (Ecotrin) 81 mg DAILY ORAL 02/08/19 09:00 03/09/19 08:59 02/15/19 08:54 Atorvastatin Calcium (Lipitor) 40 mg QHS ORAL 02/08/19 21:00 03/10/19 20:59 02/14/19 20:50 Bisacodyl (Dulcolax) 5 mg DAILYPRN PRN ORAL Constipation 02/08/19 17:15 03/10/19 17:14 02/13/19 20:34 Chlorhexidine Gluconate (Jessy-Hex 2%) 1 applic DAILY@2000 TOPIC 02/13/19 20:00 03/15/19 19:59 02/14/19 20:49 Dextrose (Dextrose 50%) 25 ml Q30M PRN IV [id number] 02/11/19 17:15 03/13/19 17:14 Dextrose (Dextrose 50%) 50 ml Q30M PRN IV HYPOGLYCEMIA 02/11/19 17:15 03/13/19 17:14 Docusate Sodium (Colace) 100 mg TID GT 02/12/19 18:00 03/12/19 08:59 02/15/19 08:50 Enoxaparin Sodium (Lovenox) 40 mg Q24H SUBQ 02/07/19 21:00 03/08/19 20:59 02/14/19 20:52 Fentanyl Citrate 2500 mcg/Sodium Chloride 250 ml @ 0 mls/hr Q24H IV 02/13/19 15:45 02/20/19 15:44 02/15/19 08:56 Fluconazole/ Sodium Chloride 100 ml @ 100 mls/hr Q24H IV 02/14/19 18:00 02/21/19 17:59 02/14/19 17:40 Guaifenesin (Mucinex ER) 600 mg TWICE A DAY ORAL 02/07/19 18:00 03/09/19 08:59 02/15/19 08:51 Heparin Sodium/ Sodium Chloride (Heparin 1000 units/500ml Premix) 1,000 unit ONCE PRN IV picc line placement 02/13/19 10:00 02/15/19 09:59 Hydralazine HCl (Apresoline) 25 mg Q4H PRN NG SBP > 160mmHg 02/12/19 16:00 03/08/19 11:14 Hydralazine HCl (Apresoline) 50 mg Q6HR NG 02/14/19 00:00 03/14/19 17:59 02/15/19 05:35 Insulin Human Regular (NovoLIN R) 5 units PRN PRN IV BS 200-299 02/11/19 17:15 03/13/19 17:14 02/15/19 04:26 Insulin Human Regular (NovoLIN R) 10 units PRN PRN IV BS=>300 02/11/19 17:15 03/13/19 17:14 02/13/19 02:05 Insulin Human Regular 100 units/ Sodium Chloride 100 ml @ 0 mls/hr Q24H IV 02/12/19 10:42 03/14/19 10:41 02/15/19 09:06 Isosorbide Dinitrate (Isordil) 10 mg Q6HR NG 02/13/19 13:00 03/15/19 12:59 02/15/19 05:36 Lansoprazole (Prevacid) 30 mg BID NG 02/12/19 18:00 03/14/19 17:59 02/15/19 08:55 Lidocaine HCl (Xylocaine 1% 30ml) 30 ml ONCE PRN INJ picc line placement 02/13/19 10:00 02/15/19 09:59 Methylprednisolone Sodium Succinate (Solu-MEDROL) 30 mg EVERY 12 HOURS IVP 02/13/19 21:00 03/12/19 20:59 02/15/19 09:07 Metoprolol Tartrate (Lopressor) 100 mg Q12HR ORAL 02/07/19 21:00 03/08/19 20:59 02/15/19 08:51 Midazolam HCl (Versed 2mg/2ml vial) 1 mg Q2H PRN IVP Agitation 02/13/19 08:45 03/15/19 08:44 02/14/19 05:49 Midazolam HCl 50 mg/Sodium Chloride 100 ml @ 0 mls/hr Q24H IV 02/13/19 15:45 02/20/19 15:44 02/15/19 08:56 Miscellaneous Medication (Insulin Rate Change) 1 ea PRN PRN MISC Per rx protocol 02/11/19 17:15 03/13/19 17:14 02/15/19 04:00 Nitroglycerin (Ntg) 0.4 mg Q5M PRN SL Prn Chest Pain 02/07/19 11:00 03/08/19 17:29 02/08/19 07:42 Ondansetron HCl (Zofran) 4 mg Q6H PRN IVP Nausea & Vomiting 02/07/19 11:15 03/08/19 11:14 02/09/19 00:58 Patient Own Medication (Patient's Own Med) 1 ea BID ORAL 02/07/19 18:00 03/09/19 17:59 02/15/19 09:06 Patient Own Medication (Patient's Own Med) 1 ea Q72H ORAL 02/16/19 09:00 03/15/19 08:59 Patient Own Medication (Patient's Own Med) 2 ea DAILY ORAL 02/08/19 09:00 03/10/19 08:59 02/15/19 08:52 Piperacillin Sod/ Tazobactam Sod 3.375 gm/Sodium Chloride 110 ml @ 27.5 mls/hr Q12HR@0600,1800 IVPB 02/11/19 18:00 02/18/19 17:59 02/15/19 05:34 Polyethylene Glycol (Miralax) 17 gm BEDTIME ORAL 02/08/19 21:00 03/10/19 20:59 02/14/19 20:51 Sennosides (Senokot) 8.6 mg DAILY ORAL 02/13/19 12:00 03/15/19 11:59 02/15/19 08:54 Sodium Bicarbonate 150 ml/Sodium Chloride 1,150 ml @ 75 mls/hr [id number] IV 02/15/19 08:06 02/15/19 15:29 02/15/19 09:07 Sodium Bicarbonate 150 ml/Sodium Chloride 1,150 ml @ 75 mls/hr [id number] IV 02/15/19 15:30 03/15/19 15:29 Trimethoprim/ Sulfamethoxazole 25 ml/Dextrose 575 ml @ 383.333 mls/hr Q12HR@0000,1200 IV 02/11/19 12:00 02/18/19 11:59 02/14/19 23:40 Vancomycin HCl (Vanco rx to dose) 1 ea DAILY PRN MISC . 02/10/19 19:45 03/12/19 19:44 Last 24 Hour Vital Signs Date Time Temp Pulse Resp B/P (MAP) Pulse Ox O2 Delivery O2 Flow Rate FiO2 02/15/19 08:56 24 Mechanical Ventilator 40 02/15/19 08:56 24 Mechanical Ventilator 40 02/15/19 08:54 74 144/57 02/15/19 08:51 70 144/57 02/15/19 08:48 70 22 40 02/15/19 07:06 70 24 98 Mechanical Ventilator 40 02/15/19 06:58 69 24 40 02/15/19 06:55 69 24 97 Mechanical Ventilator 40 02/15/19 06:30 68 24 136/55 (82) 97 02/15/19 06:00 72 24 138/60 (86) 98 02/15/19 06:00 24 Mechanical Ventilator 40 02/15/19 06:00 24 Mechanical Ventilator 40 02/15/19 05:36 146/55 02/15/19 05:35 146/55 02/15/19 05:30 74 24 146/55 (85) 100 02/15/19 05:19 14 Mechanical Ventilator 40 02/15/19 05:02 79 24 40 02/15/19 05:00 79 24 152/64 (93) 97 02/15/19 05:00 24 Mechanical Ventilator 40 02/15/19 05:00 24 Mechanical Ventilator 40 02/15/19 04:30 69 24 146/58 (87) 95 02/15/19 04:00 40 02/15/19 04:00 97.8 69 24 137/57 (83) 95 02/15/19 04:00 24 Mechanical Ventilator 40 02/15/19 04:00 24 Mechanical Ventilator 40 02/15/19 04:00 Mechanical Ventilator Mechanical Ventilator Mechanical Ventilator 02/15/19 04:00 69 02/15/19 03:30 70 24 141/60 (87) 94 02/15/19 03:08 71 24 98 Mechanical Ventilator 40 02/15/19 03:00 68 24 138/58 (84) 98 02/15/19 03:00 24 Mechanical Ventilator 40 02/15/19 03:00 24 Mechanical Ventilator 40 02/15/19 02:54 70 24 97 Mechanical Ventilator 40 02/15/19 02:53 69 24 40 02/15/19 02:30 70 24 133/54 (80) 95 02/15/19 02:00 24 Mechanical Ventilator 40 02/15/19 02:00 24 Mechanical Ventilator 40 02/15/19 02:00 71 24 132/53 (79) 95 02/15/19 01:30 77 24 150/62 (91) 97 02/15/19 01:22 77 24 40 02/15/19 01:00 19 Mechanical Ventilator 40 02/15/19 01:00 19 Mechanical Ventilator 40 02/15/19 01:00 81 19 169/76 (107) 97 02/15/19 00:32 24 Mechanical Ventilator 40 02/15/19 00:30 70 24 144/63 (90) 96 02/15/19 00:00 40 02/15/19 00:00 97.2 71 24 146/63 (90) 96 02/15/19 00:00 71 02/15/19 00:00 24 Mechanical Ventilator 40 02/15/19 00:00 24 Mechanical Ventilator 40 02/15/19 00:00 Mechanical Ventilator Mechanical Ventilator Mechanical Ventilator 02/14/19 23:41 144/58 02/14/19 23:40 144/58 02/14/19 23:38 71 24 99 Mechanical Ventilator 40 02/14/19 23:30 70 24 144/58 (86) 98 02/14/19 23:11 69 24 97 Mechanical Ventilator 40 02/14/19 23:11 69 24 40 02/14/19 23:00 68 24 139/56 (83) 97 02/14/19 23:00 24 Mechanical Ventilator 40 02/14/19 23:00 24 Mechanical Ventilator 40 02/14/19 22:30 68 24 142/56 (84) 97 02/14/19 22:00 24 Mechanical Ventilator 40 02/14/19 22:00 24 Mechanical Ventilator 40 02/14/19 22:00 69 24 144/61 (88) 99 02/14/19 21:30 72 24 141/58 (85) 97 02/14/19 21:21 71 24 40 02/14/19 21:00 72 24 142/59 (86) 98 02/14/19 21:00 24 Mechanical Ventilator 40 02/14/19 21:00 24 Mechanical Ventilator 40 02/14/19 20:50 70 137/53 02/14/19 20:30 69 24 137/53 (81) 98 02/14/19 20:00 Mechanical Ventilator Mechanical Ventilator Mechanical Ventilator 02/14/19 20:00 69 02/14/19 20:00 24 Mechanical Ventilator 40 02/14/19 20:00 24 Mechanical Ventilator 40 02/14/19 20:00 40 02/14/19 20:00 69 24 138/58 (84) 98 02/14/19 19:30 98.2 69 24 135/56 (82) 99 02/14/19 19:18 69 24 40 02/14/19 19:17 Mechanical Ventilator 40 02/14/19 19:17 Mechanical Ventilator 40 02/14/19 19:00 24 Mechanical Ventilator 40 02/14/19 19:00 24 Mechanical Ventilator 40 02/14/19 19:00 69 24 131/53 (79) 97 02/14/19 18:30 68 24 100/56 (71) 97 02/14/19 18:08 96.8 02/14/19 18:00 24 Mechanical Ventilator 40 02/14/19 18:00 24 Mechanical Ventilator 40 02/14/19 18:00 69 24 127/53 (77) 99 02/14/19 17:39 24 Mechanical Ventilator 50.0 40 02/14/19 17:38 127/52 02/14/19 17:38 24 Mechanical Ventilator 50.0 40 02/14/19 17:38 127/52 02/14/19 17:30 69 24 130/54 (79) 99 02/14/19 17:00 24 Mechanical Ventilator 40 02/14/19 17:00 24 Mechanical Ventilator 40 02/14/19 17:00 69 24 129/55 (79) 96 02/14/19 16:38 69 24 40 02/14/19 16:30 71 24 126/54 (78) 99 02/14/19 16:00 40 02/14/19 16:00 24 Mechanical Ventilator 40 02/14/19 16:00 24 Mechanical Ventilator 40 02/14/19 16:00 82 02/14/19 16:00 Mechanical Ventilator Mechanical Ventilator Mechanical Ventilator 02/14/19 16:00 96.8 70 24 126/56 (79) 95 02/14/19 15:30 72 24 127/52 (77) 99 02/14/19 15:00 24 Mechanical Ventilator 40 02/14/19 15:00 24 Mechanical Ventilator 40 02/14/19 15:00 72 24 129/59 (82) 94 02/14/19 14:52 77 24 96 Mechanical Ventilator 40 02/14/19 14:42 77 24 40 02/14/19 14:42 77 24 95 Mechanical Ventilator 40 02/14/19 14:30 84 24 168/77 (107) 100 02/14/19 14:00 86 24 157/74 (101) 100 02/14/19 14:00 24 Mechanical Ventilator 40 02/14/19 14:00 24 Mechanical Ventilator 40 02/14/19 13:30 83 24 155/77 (103) 100 02/14/19 13:09 77 24 40 02/14/19 13:00 87 24 129/60 (83) 100 02/14/19 13:00 24 Mechanical Ventilator 40 02/14/19 13:00 24 Mechanical Ventilator 40 02/14/19 12:30 73 24 135/63 (87) 100 02/14/19 12:21 129/55 02/14/19 12:21 24 Mechanical Ventilator 50.0 40 02/14/19 12:20 129/55 02/14/19 12:00 40 02/14/19 12:00 75 02/14/19 12:00 97.1 69 24 127/41 (69) 100 02/14/19 12:00 24 Mechanical Ventilator 40 02/14/19 12:00 24 Mechanical Ventilator 40 02/14/19 12:00 Mechanical Ventilator Mechanical Ventilator Mechanical Ventilator 02/14/19 11:30 69 24 129/55 (79) 100 02/14/19 11:00 24 Mechanical Ventilator 40 02/14/19 11:00 24 Mechanical Ventilator 40 02/14/19 11:00 70 24 129/54 (79) 93 02/14/19 10:47 75 24 96 Mechanical Ventilator 40 02/14/19 10:39 70 24 40 02/14/19 10:38 70 24 96 Mechanical Ventilator 40 02/14/19 10:30 71 24 135/58 (83) 94 02/14/19 10:00 24 Mechanical Ventilator 40 02/14/19 10:00 24 Mechanical Ventilator 40 02/14/19 10:00 71 24 164/71 (102) 96 02/14/19 09:30 65 24 130/59 (82) 96 02/14/19 09:00 67 24 130/59 (82) 97 02/14/19 09:00 24 Mechanical Ventilator 40 02/14/19 09:00 24 Mechanical Ventilator 40 02/14/19 09:00 24 Mechanical Ventilator 40 02/14/19 08:51 76 24 40 02/14/19 08:42 70 138/64 02/14/19 08:42 70 138/64 02/14/19 08:30 70 24 135/60 (85) 97 02/14/19 08:00 81 02/14/19 08:00 Mechanical Ventilator Mechanical Ventilator Mechanical Ventilator 02/14/19 08:00 40 02/14/19 08:00 24 Mechanical Ventilator 40 02/14/19 08:00 24 Mechanical Ventilator 40 02/14/19 08:00 68 24 128/55 (79) 96 02/14/19 07:30 96.7 71 24 127/54 (78) 98 02/14/19 07:15 70 24 98 Mechanical Ventilator 40 02/14/19 07:00 74 24 138/64 (88) 100 02/14/19 07:00 24 Mechanical Ventilator 40 02/14/19 07:00 24 40 02/14/19 06:56 77 25 98 Mechanical Ventilator 40 02/14/19 06:52 72 24 40 02/14/19 06:30 77 24 164/62 (96) 100 02/14/19 06:00 72 24 182/83 (116) 100 02/14/19 06:00 24 Mechanical Ventilator 40 02/14/19 06:00 24 Mechanical Ventilator 40 02/14/19 05:49 151/70 02/14/19 05:49 151/70 02/14/19 05:30 73 24 163/73 (103) 100 02/14/19 05:07 77 25 40 02/14/19 05:00 73 24 151/70 (97) 100 02/14/19 05:00 24 Mechanical Ventilator 40 02/14/19 05:00 24 Mechanical Ventilator 40 02/14/19 04:30 76 24 145/66 (92) 100 02/14/19 04:00 98.3 80 24 167/81 (109) 100 02/14/19 04:00 75 02/14/19 04:00 24 Mechanical Ventilator 40 02/14/19 04:00 24 Mechanical Ventilator 40 02/14/19 04:00 Mechanical Ventilator Mechanical Ventilator Mechanical Ventilator 02/14/19 04:00 40 02/14/19 03:41 24 Mechanical Ventilator 40 02/14/19 03:30 69 24 170/82 (111) 97 02/14/19 03:24 68 24 100 Mechanical Ventilator 40 02/14/19 03:13 65 24 40 02/14/19 03:13 65 24 97 Mechanical Ventilator 40 02/14/19 03:00 67 24 138/64 (88) 98 02/14/19 03:00 24 Mechanical Ventilator 40 02/14/19 03:00 24 Mechanical Ventilator 40 02/14/19 02:30 65 24 130/61 (84) 97 02/14/19 02:00 66 24 131/62 (85) 97 02/14/19 02:00 24 Mechanical Ventilator 40 02/14/19 02:00 24 Mechanical Ventilator 40 02/14/19 01:30 69 24 149/75 (99) 99 02/14/19 01:22 70 24 40 02/14/19 01:00 68 24 135/64 (87) 97 02/14/19 01:00 24 Mechanical Ventilator 40 02/14/19 01:00 24 Mechanical Ventilator 40 02/14/19 00:00 97.8 68 24 150/72 (98) 98 02/14/19 00:00 24 Mechanical Ventilator 40 02/14/19 00:00 24 Mechanical Ventilator 40 02/14/19 00:00 40 02/14/19 00:00 Mechanical Ventilator Mechanical Ventilator Mechanical Ventilator 02/14/19 00:00 68 02/13/19 23:46 133/60 02/13/19 23:46 133/60 02/13/19 23:20 66 24 99 Mechanical Ventilator 40 02/13/19 23:13 68 24 97 Mechanical Ventilator 40 02/13/19 23:12 67 24 40 02/13/19 23:00 67 24 169/80 (109) 97 02/13/19 23:00 24 Mechanical Ventilator 40 02/13/19 23:00 24 Mechanical Ventilator 40 02/13/19 22:04 69 24 40 02/13/19 22:00 67 24 173/82 (112) 96 02/13/19 22:00 24 Mechanical Ventilator 40 02/13/19 22:00 24 Mechanical Ventilator 40 02/13/19 21:00 24 Mechanical Ventilator 40 02/13/19 21:00 24 Mechanical Ventilator 40 02/13/19 21:00 70 24 208/92 (130) 97 02/13/19 20:34 70 159/68 02/13/19 20:00 67 02/13/19 20:00 20 Mechanical Ventilator 40 02/13/19 20:00 24 Mechanical Ventilator 40 02/13/19 20:00 40 02/13/19 20:00 98.0 72 24 153/66 (95) 97 02/13/19 20:00 Mechanical Ventilator Mechanical Ventilator Mechanical Ventilator 02/13/19 19:15 70 24 100 Mechanical Ventilator 40 02/13/19 19:07 69 24 98 Mechanical Ventilator 40 02/13/19 19:04 69 24 40 02/13/19 19:00 70 24 159/68 (98) 100 02/13/19 19:00 24 Endotracheal Tube 40 02/13/19 19:00 24 Mechanical Ventilator 40 6/25/19 18:30 69 24 151/66 (94) 97 02/13/19 18:06 150/61 02/13/19 18:00 24 Mechanical Ventilator 40 02/13/19 18:00 24 Mechanical Ventilator 40 02/13/19 18:00 69 24 150/61 (90) 98 02/13/19 17:30 70 24 153/63 (93) 98 02/13/19 17:18 68 24 40 02/13/19 17:00 70 24 144/64 (90) 98 02/13/19 17:00 24 Mechanical Ventilator 40 02/13/19 17:00 26 Mechanical Ventilator 40 02/13/19 16:30 70 24 137/95 (109) 98 02/13/19 16:25 24 Mechanical Ventilator 50.0 40 02/13/19 16:25 24 Mechanical Ventilator 50.0 40 02/13/19 16:00 Mechanical Ventilator Mechanical Ventilator Mechanical Ventilator 02/13/19 16:00 68 02/13/19 16:00 97.8 68 24 140/62 (88) 97 02/13/19 16:00 40 02/13/19 15:30 72 24 206/95 (132) 98 02/13/19 15:28 24 194/95 Mechanical Ventilator 40 02/13/19 15:13 88 24 100 Mechanical Ventilator 40 02/13/19 15:12 81 24 40 02/13/19 15:04 81 24 100 Mechanical Ventilator 40 02/13/19 15:00 85 20 206/95 (132) 93 02/13/19 14:30 81 20 200/86 (124) 93 02/13/19 14:01 182/82 02/13/19 14:00 26 Mechanical Ventilator 40 02/13/19 14:00 91 20 210/88 (128) 93 02/13/19 13:30 82 22 175/73 (107) 96 02/13/19 13:15 74 24 40 02/13/19 13:00 26 Mechanical Ventilator 40 02/13/19 13:00 75 20 160/69 (99) 93 02/13/19 12:31 182/82 02/13/19 12:30 78 20 173/70 (104) 93 02/13/19 12:22 182/82 02/13/19 12:00 91 02/13/19 12:00 26 Endotracheal Tube 40 02/13/19 12:00 24 Mechanical Ventilator 40 02/13/19 12:00 26 Endotracheal Tube 40 02/13/19 12:00 99.6 80 20 132/64 (86) 93 02/13/19 12:00 Mechanical Ventilator Mechanical Ventilator Mechanical Ventilator 02/13/19 12:00 40 02/13/19 11:40 95 31 96 Mechanical Ventilator 40 02/13/19 11:30 95 29 95 Mechanical Ventilator 40 02/13/19 11:20 95 30 40 02/13/19 11:00 78 20 169/78 (108) 93 02/13/19 11:00 26 Mechanical Ventilator 40 02/13/19 10:32 99.3 02/13/19 10:30 24 170/81 Mechanical Ventilator 40 02/13/19 10:30 83 20 188/85 (119) 97 02/13/19 10:02 24 Mechanical Ventilator 50.0 35 02/13/19 10:01 24 155/75 Mechanical Ventilator 50.0 40 02/13/19 10:00 74 24 170/81 (110) 97 02/13/19 10:00 24 170/81 Endotracheal Tube 40 Intake and Output 02/14/19 02/15/19 18:59 06:59 Intake Total 2107.5 ml 2967.000 ml Output Total 745 ml 1215 ml Balance 1362.5 ml 1752.000 ml Free Water 80 ml 60 ml IV Total 1652.5 ml 2367.000 ml Tube Feeding 315 ml 420 ml Blood Product 60 ml Other 120 ml Output Urine Total 745 ml 1215 ml # Bowel Movements 4 2 Labs Test 02/12/19 16:15 02/12/19 16:20 02/13/19 04:00 02/13/19 05:00 Sodium Level 140 MMOL/L (136-145) 142 MMOL/L (136-145) Potassium Level 4.5 MMOL/L (3.5-5.1) 4.8 MMOL/L (3.5-5.1) Chloride Level 110 MMOL/L (98-107) 111 MMOL/L (98-107) Carbon Dioxide Level 16 MMOL/L (21-32) 15 MMOL/L (21-32) Anion Gap 14 mmol/L (5-15) 16 mmol/L (5-15) Blood Urea Nitrogen 64 mg/dL (7-18) 70 mg/dL (7-18) Creatinine 3.9 MG/DL (0.55-1.30) 3.8 MG/DL (0.55-1.30) Estimat Glomerular Filtration Rate 15.9 mL/min (>60) 16.4 mL/min (>60) Glucose Level 178 MG/DL (74-106) 198 MG/DL (74-106) Calcium Level 7.3 MG/DL (8.5-10.1) 8.1 MG/DL (8.5-10.1) Urine Color Pale yellow Urine Appearance Slightly cloudy Urine pH 5 (4.5-8.0) Urine Specific [place] 1.015 (1.005-1.035) Urine Protein 2+ (NEGATIVE) Urine Glucose (UA) Negative (NEGATIVE) Urine Ketones Negative (NEGATIVE) Urine Blood 2+ (NEGATIVE) Urine Nitrite Negative (NEGATIVE) Urine Bilirubin Negative (NEGATIVE) Urine Urobilinogen Normal MG/DL (0.0-1.0) Urine Leukocyte Esterase Negative (NEGATIVE) Urine RBC 10-15 /HPF (0 - 0) Urine WBC 0-2 /HPF (0 - 0) Urine Squamous Epithelial Cells Occasional /LPF Urine Amorphous Sediment Moderate /LPF (NONE) Urine Bacteria Few /HPF (NONE) Urine Random Sodium 44 mmol/L (20-110) Urine Eosinophils None seen (NONE SEEN) White Blood Count 11.6 K/UL (4.8-10.8) Red Blood Count 3.35 M/UL (4.70-6.10) Hemoglobin 9.4 G/DL (14.2-18.0) Hematocrit 28.7 % (42.0-52.0) Mean Corpuscular Volume 86 FL (80-99) Mean Corpuscular Hemoglobin 28.1 PG (27.0-31.0) Mean Corpuscular Hemoglobin Concent 32.8 G/DL (32.0-36.0) Red Cell Distribution Width 18.2 % (11.6-14.8) Platelet Count 257 K/UL (150-450) Mean Platelet Volume 6.3 FL (6.5-10.1) Neutrophils (%) (Auto) % (45.0-75.0) Lymphocytes (%) (Auto) % (20.0-45.0) Monocytes (%) (Auto) % (1.0-10.0) Eosinophils (%) (Auto) % (0.0-3.0) Basophils (%) (Auto) % (0.0-2.0) Differential Total Cells Counted 100 Neutrophils % (Manual) 90 % (45-75) Lymphocytes % (Manual) 7 % (20-45) Monocytes % (Manual) 3 % (1-10) Eosinophils % (Manual) 0 % (0-3) Basophils % (Manual) 0 % (0-2) Band Neutrophils 0 % (0-8) Platelet Estimate Adequate Platelet Morphology Normal Activated Partial Thromboplast Time 29 SEC (23-33) Uric Acid 6.9 MG/DL (2.6-7.2) Phosphorus Level 5.3 MG/DL (2.5-4.9) Magnesium Level 2.9 MG/DL (1.8-2.4) Total Bilirubin 0.3 MG/DL (0.2-1.0) Gamma Glutamyl Transpeptidase 473 U/L (5-85) Aspartate Amino Transf (AST/SGOT) 49 U/L (15-37) Alanine Aminotransferase (ALT/SGPT) 74 U/L (12-78) Alkaline Phosphatase 249 U/L (46-116) Total Creatine Kinase 171 U/L (26-308) Troponin I 3.192 ng/mL (0.000-0.056) C-Reactive Protein, Quantitative 8.2 mg/dL (0.00-0.90) Pro-B-Type Natriuretic Peptide 6068 pg/mL (0-125) Total Protein 6.6 G/DL (6.4-8.2) Albumin 2.0 G/DL (3.4-5.0) Globulin 4.6 g/dL Albumin/Globulin Ratio 0.4 (1.0-2.7) Triglycerides Level 198 MG/DL (30-150) Thyroid Stimulating Hormone (TSH) 0.460 uiU/mL (0.358-3.740) Test 02/13/19 08:23 02/13/19 14:10 02/13/19 16:10 02/14/19 04:30 Arterial Blood pH 7.278 (7.350-7.450) 7.162 (7.350-7.450) 7.279 (7.350-7.450) Arterial Blood Partial Pressure CO2 33.1 mmHg (35.0-45.0) 42.8 mmHg (35.0-45.0) 33.7 mmHg (35.0-45.0) Arterial Blood Partial Pressure O2 83.2 mmHg (75.0-100.0) 81.1 mmHg (75.0-100.0) 71.4 mmHg (75.0-100.0) Arterial Blood HCO3 15.1 mmol/L (22.0-26.0) 15.0 mmol/L (22.0-26.0) 15.4 mmol/L (22.0-26.0) Arterial Blood Oxygen Saturation 94.1 % (95-100) 92.4 % (95-100) 92.2 % (95-100) Arterial Blood Base Excess -10.6 (-2-2) -13.0 (-2-2) -10.3 (-2-2) Benny Test Positive Positive Positive White Blood Count 6.3 K/UL (4.8-10.8) Red Blood Count 3.10 M/UL (4.70-6.10) Hemoglobin 8.5 G/DL (14.2-18.0) Hematocrit 26.4 % (42.0-52.0) Mean Corpuscular Volume 85 FL (80-99) Mean Corpuscular Hemoglobin 27.5 PG (27.0-31.0) Mean Corpuscular Hemoglobin Concent 32.2 G/DL (32.0-36.0) Red Cell Distribution Width 18.3 % (11.6-14.8) Platelet Count 224 K/UL (150-450) Mean Platelet Volume 6.4 FL (6.5-10.1) Neutrophils (%) (Auto) 75.1 % (45.0-75.0) Lymphocytes (%) (Auto) 15.2 % (20.0-45.0) Monocytes (%) (Auto) 8.9 % (1.0-10.0) Eosinophils (%) (Auto) 0.2 % (0.0-3.0) Basophils (%) (Auto) 0.6 % (0.0-2.0) Sodium Level 144 MMOL/L (136-145) Potassium Level 4.5 MMOL/L (3.5-5.1) Chloride Level 111 MMOL/L (98-107) Carbon Dioxide Level 22 MMOL/L (21-32) Anion Gap 12 mmol/L (5-15) Blood Urea Nitrogen 68 mg/dL (7-18) Creatinine 3.5 MG/DL (0.55-1.30) Estimat Glomerular Filtration Rate 18.0 mL/min (>60) Glucose Level 158 MG/DL (74-106) Uric Acid 6.4 MG/DL (2.6-7.2) Calcium Level 7.7 MG/DL (8.5-10.1) Phosphorus Level 5.3 MG/DL (2.5-4.9) Magnesium Level 2.9 MG/DL (1.8-2.4) Total Bilirubin 0.3 MG/DL (0.2-1.0) Gamma Glutamyl Transpeptidase 417 U/L (5-85) Aspartate Amino Transf (AST/SGOT) 35 U/L (15-37) Alanine Aminotransferase (ALT/SGPT) 59 U/L (12-78) Alkaline Phosphatase 183 U/L (46-116) C-Reactive Protein, Quantitative 4.3 mg/dL (0.00-0.90) Pro-B-Type Natriuretic Peptide 6855 pg/mL (0-125) Total Protein 5.7 G/DL (6.4-8.2) Albumin 1.9 G/DL (3.4-5.0) Globulin 3.8 g/dL Albumin/Globulin Ratio 0.5 (1.0-2.7) Random Vancomycin Level 14.1 ug/mL Test 02/14/19 07:20 02/15/19 04:50 02/15/19 06:21 Arterial Blood pH 7.366 (7.350-7.450) 7.453 (7.350-7.450) Arterial Blood Partial Pressure CO2 33.5 mmHg (35.0-45.0) 33.3 mmHg (35.0-45.0) Arterial Blood Partial Pressure O2 71.2 mmHg (75.0-100.0) 69.3 mmHg (75.0-100.0) Arterial Blood HCO3 18.8 mmol/L (22.0-26.0) 22.8 mmol/L (22.0-26.0) Arterial Blood Oxygen Saturation 92.5 % (95-100) 92.3 % (95-100) Arterial Blood Base Excess -5.9 (-2-2) -0.8 (-2-2) Benny Test Positive Positive White Blood Count 4.7 K/UL (4.8-10.8) Red Blood Count 2.99 M/UL (4.70-6.10) Hemoglobin 8.2 G/DL (14.2-18.0) Hematocrit 25.1 % (42.0-52.0) Mean Corpuscular Volume 84 FL (80-99) Mean Corpuscular Hemoglobin 27.5 PG (27.0-31.0) Mean Corpuscular Hemoglobin Concent 32.7 G/DL (32.0-36.0) Red Cell Distribution Width 17.8 % (11.6-14.8) Platelet Count 205 K/UL (150-450) Mean Platelet Volume 6.2 FL (6.5-10.1) Neutrophils (%) (Auto) % (45.0-75.0) Lymphocytes (%) (Auto) % (20.0-45.0) Monocytes (%) (Auto) % (1.0-10.0) Eosinophils (%) (Auto) % (0.0-3.0) Basophils (%) (Auto) % (0.0-2.0) Sodium Level 147 MMOL/L (136-145) Potassium Level 5.2 MMOL/L (3.5-5.1) Chloride Level 114 MMOL/L (98-107) Carbon Dioxide Level 24 MMOL/L (21-32) Anion Gap 9 mmol/L (5-15) Blood Urea Nitrogen 66 mg/dL (7-18) Creatinine 2.9 MG/DL (0.55-1.30) Estimat Glomerular Filtration Rate 22.4 mL/min (>60) Glucose Level 204 MG/DL (74-106) Lactic Acid Level 2.00 mmol/L (0.4-2.0) Uric Acid 5.8 MG/DL (2.6-7.2) Calcium Level 7.8 MG/DL (8.5-10.1) Phosphorus Level 4.4 MG/DL (2.5-4.9) Magnesium Level 2.6 MG/DL (1.8-2.4) Total Bilirubin 0.3 MG/DL (0.2-1.0) Gamma Glutamyl Transpeptidase 329 U/L (5-85) Aspartate Amino Transf (AST/SGOT) 30 U/L (15-37) Alanine Aminotransferase (ALT/SGPT) 51 U/L (12-78) Alkaline Phosphatase 153 U/L (46-116) Troponin I 2.367 ng/mL (0.000-0.056) C-Reactive Protein, Quantitative 3.2 mg/dL (0.00-0.90) Pro-B-Type Natriuretic Peptide 5827 pg/mL (0-125) Total Protein 5.5 G/DL (6.4-8.2) Albumin 1.9 G/DL (3.4-5.0) Globulin 3.6 g/dL Albumin/Globulin Ratio 0.5 (1.0-2.7) Height (Feet): 6 Height (Inches): 0.00 Weight (Pounds): 264 Objective PHYSICAL EXAMINATION: GENERAL: NAD VITAL SIGNS: Have been reviewed. HEAD AND NECK: Shows no JVD. NG+ TRACH+ LUNGS: Coarse rhonchi. CARDIOVASCULAR: Shows regular S1 and S2 with no gallop or murmur. ABDOMEN: Soft. EXTREMITIES: No pitting edema. Chan Hernandez MD Feb 15, 2019 09:33
--- NOTE | 2019-02-15 09:47 | Cardiac Electrophysiology PN ---
Assessment/Plan Assessment/Plan 1. Non-ST elevation myocardial infarction with peak troponin of more than 10. Down to 2 , up to 7 and down to 3.5 again . EKG shows nonspecific ST-T wave abnormalities. Consider cardiac catheterization after stabilized. Continue aspirin, Lipitor, Imdur and metoprolol 100 mg b.i.d. 2. Hypertension. Continue metoprolol 100 mg b.i.d., Imdur 30 mg daily and hydralazine 50 q 6hr. 3. Respiratory failure due to Multilobar Pneumonia. 4. Hyperlipidemia. On Lipitor. 5. Human immunodeficiency virus. On anti-retroviral therapy with undetectable viral load. 6. Agitation on Fentanyl and Versed drip 7. ARF Cr 3.5. Losartan DCed. Cr down to 2.5 DW RN Subjective Subjective In ICU on the vent. Off pressors. On Fentanyl drip at 150 mcg/hr and Versed drip at 5 mg/hr Objective Last 24 Hour Vital Signs Date Time Temp Pulse Resp B/P (MAP) Pulse Ox O2 Delivery O2 Flow Rate FiO2 02/15/19 08:56 24 Mechanical Ventilator 40 02/15/19 08:56 24 Mechanical Ventilator 40 02/15/19 08:54 74 144/57 02/15/19 08:51 70 144/57 02/15/19 08:48 70 22 40 02/15/19 07:06 70 24 98 Mechanical Ventilator 40 02/15/19 06:58 69 24 40 02/15/19 06:55 69 24 97 Mechanical Ventilator 40 02/15/19 06:30 68 24 136/55 (82) 97 02/15/19 06:00 72 24 138/60 (86) 98 02/15/19 06:00 24 Mechanical Ventilator 40 02/15/19 06:00 24 Mechanical Ventilator 40 02/15/19 05:36 146/55 02/15/19 05:35 146/55 02/15/19 05:30 74 24 146/55 (85) 100 02/15/19 05:19 14 Mechanical Ventilator 40 02/15/19 05:02 79 24 40 02/15/19 05:00 79 24 152/64 (93) 97 02/15/19 05:00 24 Mechanical Ventilator 40 02/15/19 05:00 24 Mechanical Ventilator 40 02/15/19 04:30 69 24 146/58 (87) 95 02/15/19 04:00 40 02/15/19 04:00 97.8 69 24 137/57 (83) 95 02/15/19 04:00 24 Mechanical Ventilator 40 02/15/19 04:00 24 Mechanical Ventilator 40 02/15/19 04:00 Mechanical Ventilator Mechanical Ventilator Mechanical Ventilator 02/15/19 04:00 69 02/15/19 03:30 70 24 141/60 (87) 94 02/15/19 03:08 71 24 98 Mechanical Ventilator 40 02/15/19 03:00 68 24 138/58 (84) 98 02/15/19 03:00 24 Mechanical Ventilator 40 02/15/19 03:00 24 Mechanical Ventilator 40 02/15/19 02:54 70 24 97 Mechanical Ventilator 40 02/15/19 02:53 69 24 40 02/15/19 02:30 70 24 133/54 (80) 95 02/15/19 02:00 24 Mechanical Ventilator 40 02/15/19 02:00 24 Mechanical Ventilator 40 02/15/19 02:00 71 24 132/53 (79) 95 02/15/19 01:30 77 24 150/62 (91) 97 02/15/19 01:22 77 24 40 02/15/19 01:00 19 Mechanical Ventilator 40 02/15/19 01:00 19 Mechanical Ventilator 40 02/15/19 01:00 81 19 169/76 (107) 97 02/15/19 00:32 24 Mechanical Ventilator 40 02/15/19 00:30 70 24 144/63 (90) 96 02/15/19 00:00 40 02/15/19 00:00 97.2 71 24 146/63 (90) 96 02/15/19 00:00 71 02/15/19 00:00 24 Mechanical Ventilator 40 02/15/19 00:00 24 Mechanical Ventilator 40 02/15/19 00:00 Mechanical Ventilator Mechanical Ventilator Mechanical Ventilator 02/14/19 23:41 144/58 02/14/19 23:40 144/58 02/14/19 23:38 71 24 99 Mechanical Ventilator 40 02/14/19 23:30 70 24 144/58 (86) 98 02/14/19 23:11 69 24 97 Mechanical Ventilator 40 02/14/19 23:11 69 24 40 02/14/19 23:00 68 24 139/56 (83) 97 02/14/19 23:00 24 Mechanical Ventilator 40 02/14/19 23:00 24 Mechanical Ventilator 40 02/14/19 22:30 68 24 142/56 (84) 97 02/14/19 22:00 24 Mechanical Ventilator 40 02/14/19 22:00 24 Mechanical Ventilator 40 02/14/19 22:00 69 24 144/61 (88) 99 02/14/19 21:30 72 24 141/58 (85) 97 02/14/19 21:21 71 24 40 02/14/19 21:00 72 24 142/59 (86) 98 02/14/19 21:00 24 Mechanical Ventilator 40 02/14/19 21:00 24 Mechanical Ventilator 40 02/14/19 20:50 70 137/53 02/14/19 20:30 69 24 137/53 (81) 98 02/14/19 20:00 Mechanical Ventilator Mechanical Ventilator Mechanical Ventilator 02/14/19 20:00 69 02/14/19 20:00 24 Mechanical Ventilator 40 02/14/19 20:00 24 Mechanical Ventilator 40 02/14/19 20:00 40 02/14/19 20:00 69 24 138/58 (84) 98 02/14/19 19:30 98.2 69 24 135/56 (82) 99 02/14/19 19:18 69 24 40 02/14/19 19:17 Mechanical Ventilator 40 02/14/19 19:17 Mechanical Ventilator 40 02/14/19 19:00 24 Mechanical Ventilator 40 02/14/19 19:00 24 Mechanical Ventilator 40 02/14/19 19:00 69 24 131/53 (79) 97 02/14/19 18:30 68 24 100/56 (71) 97 02/14/19 18:08 96.8 02/14/19 18:00 24 Mechanical Ventilator 40 02/14/19 18:00 24 Mechanical Ventilator 40 02/14/19 18:00 69 24 127/53 (77) 99 02/14/19 17:39 24 Mechanical Ventilator 50.0 40 02/14/19 17:38 127/52 02/14/19 17:38 24 Mechanical Ventilator 50.0 40 02/14/19 17:38 127/52 02/14/19 17:30 69 24 130/54 (79) 99 02/14/19 17:00 24 Mechanical Ventilator 40 02/14/19 17:00 24 Mechanical Ventilator 40 02/14/19 17:00 69 24 129/55 (79) 96 02/14/19 16:38 69 24 40 02/14/19 16:30 71 24 126/54 (78) 99 02/14/19 16:00 40 02/14/19 16:00 24 Mechanical Ventilator 40 02/14/19 16:00 24 Mechanical Ventilator 40 02/14/19 16:00 82 02/14/19 16:00 Mechanical Ventilator Mechanical Ventilator Mechanical Ventilator 02/14/19 16:00 96.8 70 24 126/56 (79) 95 02/14/19 15:30 72 24 127/52 (77) 99 02/14/19 15:00 24 Mechanical Ventilator 40 02/14/19 15:00 24 Mechanical Ventilator 40 02/14/19 15:00 72 24 129/59 (82) 94 02/14/19 14:52 77 24 96 Mechanical Ventilator 40 02/14/19 14:42 77 24 40 02/14/19 14:42 77 24 95 Mechanical Ventilator 40 02/14/19 14:30 84 24 168/77 (107) 100 02/14/19 14:00 86 24 157/74 (101) 100 02/14/19 14:00 24 Mechanical Ventilator 40 02/14/19 14:00 24 Mechanical Ventilator 40 02/14/19 13:30 83 24 155/77 (103) 100 02/14/19 13:09 77 24 40 02/14/19 13:00 87 24 129/60 (83) 100 02/14/19 13:00 24 Mechanical Ventilator 40 02/14/19 13:00 24 Mechanical Ventilator 40 02/14/19 12:30 73 24 135/63 (87) 100 02/14/19 12:21 129/55 02/14/19 12:21 24 Mechanical Ventilator 50.0 40 02/14/19 12:20 129/55 02/14/19 12:00 40 02/14/19 12:00 75 02/14/19 12:00 97.1 69 24 127/41 (69) 100 02/14/19 12:00 24 Mechanical Ventilator 40 02/14/19 12:00 24 Mechanical Ventilator 40 02/14/19 12:00 Mechanical Ventilator Mechanical Ventilator Mechanical Ventilator 02/14/19 11:30 69 24 129/55 (79) 100 02/14/19 11:00 24 Mechanical Ventilator 40 02/14/19 11:00 24 Mechanical Ventilator 40 02/14/19 11:00 70 24 129/54 (79) 93 02/14/19 10:47 75 24 96 Mechanical Ventilator 40 02/14/19 10:39 70 24 40 02/14/19 10:38 70 24 96 Mechanical Ventilator 40 02/14/19 10:30 71 24 135/58 (83) 94 02/14/19 10:00 24 Mechanical Ventilator 40 02/14/19 10:00 24 Mechanical Ventilator 40 02/14/19 10:00 71 24 164/71 (102) 96 Intake and Output 02/14/19 02/15/19 18:59 06:59 Intake Total 2107.5 ml 2967.000 ml Output Total 745 ml 1215 ml Balance 1362.5 ml 1752.000 ml Free Water 80 ml 60 ml IV Total 1652.5 ml 2367.000 ml Tube Feeding 315 ml 420 ml Blood Product 60 ml Other 120 ml Output Urine Total 745 ml 1215 ml # Bowel Movements 4 2 Laboratory Tests Test 02/15/19 04:50 02/15/19 06:21 White Blood Count 4.7 K/UL (4.8-10.8) L Red Blood Count 2.99 M/UL (4.70-6.10) L Hemoglobin 8.2 G/DL (14.2-18.0) L Hematocrit 25.1 % (42.0-52.0) L Mean Corpuscular Volume 84 FL (80-99) Mean Corpuscular Hemoglobin 27.5 PG (27.0-31.0) Mean Corpuscular Hemoglobin Concent 32.7 G/DL (32.0-36.0) Red Cell Distribution Width 17.8 % (11.6-14.8) H Platelet Count 205 K/UL (150-450) Mean Platelet Volume 6.2 FL (6.5-10.1) L Neutrophils (%) (Auto) % (45.0-75.0) Lymphocytes (%) (Auto) % (20.0-45.0) Monocytes (%) (Auto) % (1.0-10.0) Eosinophils (%) (Auto) % (0.0-3.0) Basophils (%) (Auto) % (0.0-2.0) Sodium Level 147 MMOL/L (136-145) H Potassium Level 5.2 MMOL/L (3.5-5.1) H Chloride Level 114 MMOL/L (98-107) H Carbon Dioxide Level 24 MMOL/L (21-32) Anion Gap 9 mmol/L (5-15) Blood Urea Nitrogen 66 mg/dL (7-18) H Creatinine 2.9 MG/DL (0.55-1.30) H Estimat Glomerular Filtration Rate 22.4 mL/min (>60) Glucose Level 204 MG/DL (74-106) H Lactic Acid Level 2.00 mmol/L (0.4-2.0) Uric Acid 5.8 MG/DL (2.6-7.2) Calcium Level 7.8 MG/DL (8.5-10.1) L Phosphorus Level 4.4 MG/DL (2.5-4.9) Magnesium Level 2.6 MG/DL (1.8-2.4) H Total Bilirubin 0.3 MG/DL (0.2-1.0) Gamma Glutamyl Transpeptidase 329 U/L (5-85) H Aspartate Amino Transf (AST/SGOT) 30 U/L (15-37) Alanine Aminotransferase (ALT/SGPT) 51 U/L (12-78) Alkaline Phosphatase 153 U/L (46-116) H Troponin I 2.367 ng/mL (0.000-0.056) C-Reactive Protein, Quantitative 3.2 mg/dL (0.00-0.90) H Pro-B-Type Natriuretic Peptide 5827 pg/mL (0-125) H Total Protein 5.5 G/DL (6.4-8.2) L Albumin 1.9 G/DL (3.4-5.0) L Globulin 3.6 g/dL Albumin/Globulin Ratio 0.5 (1.0-2.7) L Arterial Blood pH 7.453 (7.350-7.450) Arterial Blood Partial Pressure CO2 33.3 mmHg (35.0-45.0) L Arterial Blood Partial Pressure O2 69.3 mmHg (75.0-100.0) L Arterial Blood HCO3 22.8 mmol/L (22.0-26.0) Arterial Blood Oxygen Saturation 92.3 % (95-100) L Arterial Blood Base Excess -0.8 (-2-2) Benny Test Positive Objective HEAD AND NECK: No JVD. Orally intubated LUNGS: Coarse rhonchi. CARDIOVASCULAR: Regular S1 and S2 with no gallop or murmur. ABDOMEN: Soft. EXTREMITIES: No pitting edema. Murray Francois MD Feb 15, 2019 09:47
--- NOTE | 2019-02-15 09:54 | Diagnostic Imaging Report ---
Indication: Dyspnea Comparison: 02/11/2019 A single view chest radiograph was obtained. Findings: Lung volumes are lower on the current study. There is evidence of pulmonary edema with cardiomegaly. There may be a small left pleural effusion. NG tube and endotracheal tubes are in good position. IMPRESSION: Pulmonary edema. No significant change
--- NOTE | 2019-02-15 10:20 | Nephrology Progress Note ---
Assessment/Plan Problem List: (1) ISH (acute kidney injury) Assessment: Cr lowering (2) HIV (human immunodeficiency virus infection) (3) NSTEMI (non-ST elevated myocardial infarction) Assessment: troponin decreasing (4) Hypoxia (5) Anemia (6) Diabetes Assessment Acute Renal failure- Cr leveling- Urine out put is good Acidosis improved Acute respiratory failure- Require intubation and Mechanical Ventilation- Anemia- Elevated troponin / PR HTN DM HIV Antibody + Plan Bicarb in IV DC Bicitra UA and urine studies Avoid Nephrotoxics as possible Monitor renal parameters keep BP and BS in check Per orders No HD at this time Kidney RADHA noted adjust BP meds add Isordil Subjective ROS Limited/Unobtainable: Yes Objective Objective Last 24 Hour Vital Signs Date Time Temp Pulse Resp B/P (MAP) Pulse Ox O2 Delivery O2 Flow Rate FiO2 02/15/19 08:56 24 Mechanical Ventilator 40 02/15/19 08:56 24 Mechanical Ventilator 40 02/15/19 08:54 74 144/57 02/15/19 08:51 70 144/57 02/15/19 08:48 70 22 40 02/15/19 07:06 70 24 98 Mechanical Ventilator 40 02/15/19 06:58 69 24 40 02/15/19 06:55 69 24 97 Mechanical Ventilator 40 02/15/19 06:30 68 24 136/55 (82) 97 02/15/19 06:00 72 24 138/60 (86) 98 02/15/19 06:00 24 Mechanical Ventilator 40 02/15/19 06:00 24 Mechanical Ventilator 40 02/15/19 05:36 146/55 02/15/19 05:35 146/55 02/15/19 05:30 74 24 146/55 (85) 100 02/15/19 05:19 14 Mechanical Ventilator 40 02/15/19 05:02 79 24 40 02/15/19 05:00 79 24 152/64 (93) 97 02/15/19 05:00 24 Mechanical Ventilator 40 02/15/19 05:00 24 Mechanical Ventilator 40 02/15/19 04:30 69 24 146/58 (87) 95 02/15/19 04:00 40 02/15/19 04:00 97.8 69 24 137/57 (83) 95 02/15/19 04:00 24 Mechanical Ventilator 40 02/15/19 04:00 24 Mechanical Ventilator 40 02/15/19 04:00 Mechanical Ventilator Mechanical Ventilator Mechanical Ventilator 02/15/19 04:00 69 02/15/19 03:30 70 24 141/60 (87) 94 02/15/19 03:08 71 24 98 Mechanical Ventilator 40 02/15/19 03:00 68 24 138/58 (84) 98 02/15/19 03:00 24 Mechanical Ventilator 40 02/15/19 03:00 24 Mechanical Ventilator 40 02/15/19 02:54 70 24 97 Mechanical Ventilator 40 02/15/19 02:53 69 24 40 02/15/19 02:30 70 24 133/54 (80) 95 02/15/19 02:00 24 Mechanical Ventilator 40 02/15/19 02:00 24 Mechanical Ventilator 40 02/15/19 02:00 71 24 132/53 (79) 95 02/15/19 01:30 77 24 150/62 (91) 97 02/15/19 01:22 77 24 40 02/15/19 01:00 19 Mechanical Ventilator 40 02/15/19 01:00 19 Mechanical Ventilator 40 02/15/19 01:00 81 19 169/76 (107) 97 02/15/19 00:32 24 Mechanical Ventilator 40 02/15/19 00:30 70 24 144/63 (90) 96 02/15/19 00:00 40 02/15/19 00:00 97.2 71 24 146/63 (90) 96 02/15/19 00:00 71 02/15/19 00:00 24 Mechanical Ventilator 40 02/15/19 00:00 24 Mechanical Ventilator 40 02/15/19 00:00 Mechanical Ventilator Mechanical Ventilator Mechanical Ventilator 02/14/19 23:41 144/58 02/14/19 23:40 144/58 02/14/19 23:38 71 24 99 Mechanical Ventilator 40 02/14/19 23:30 70 24 144/58 (86) 98 02/14/19 23:11 69 24 97 Mechanical Ventilator 40 02/14/19 23:11 69 24 40 02/14/19 23:00 68 24 139/56 (83) 97 02/14/19 23:00 24 Mechanical Ventilator 40 02/14/19 23:00 24 Mechanical Ventilator 40 02/14/19 22:30 68 24 142/56 (84) 97 02/14/19 22:00 24 Mechanical Ventilator 40 02/14/19 22:00 24 Mechanical Ventilator 40 02/14/19 22:00 69 24 144/61 (88) 99 02/14/19 21:30 72 24 141/58 (85) 97 02/14/19 21:21 71 24 40 02/14/19 21:00 72 24 142/59 (86) 98 02/14/19 21:00 24 Mechanical Ventilator 40 02/14/19 21:00 24 Mechanical Ventilator 40 02/14/19 20:50 70 137/53 02/14/19 20:30 69 24 137/53 (81) 98 02/14/19 20:00 Mechanical Ventilator Mechanical Ventilator Mechanical Ventilator 02/14/19 20:00 69 02/14/19 20:00 24 Mechanical Ventilator 40 02/14/19 20:00 24 Mechanical Ventilator 40 02/14/19 20:00 40 02/14/19 20:00 69 24 138/58 (84) 98 02/14/19 19:30 98.2 69 24 135/56 (82) 99 02/14/19 19:18 69 24 40 02/14/19 19:17 Mechanical Ventilator 40 02/14/19 19:17 Mechanical Ventilator 40 02/14/19 19:00 24 Mechanical Ventilator 40 02/14/19 19:00 24 Mechanical Ventilator 40 02/14/19 19:00 69 24 131/53 (79) 97 02/14/19 18:30 68 24 100/56 (71) 97 02/14/19 18:08 96.8 02/14/19 18:00 24 Mechanical Ventilator 40 02/14/19 18:00 24 Mechanical Ventilator 40 02/14/19 18:00 69 24 127/53 (77) 99 02/14/19 17:39 24 Mechanical Ventilator 50.0 40 02/14/19 17:38 127/52 02/14/19 17:38 24 Mechanical Ventilator 50.0 40 02/14/19 17:38 127/52 02/14/19 17:30 69 24 130/54 (79) 99 02/14/19 17:00 24 Mechanical Ventilator 40 02/14/19 17:00 24 Mechanical Ventilator 40 02/14/19 17:00 69 24 129/55 (79) 96 02/14/19 16:38 69 24 40 02/14/19 16:30 71 24 126/54 (78) 99 02/14/19 16:00 40 02/14/19 16:00 24 Mechanical Ventilator 40 02/14/19 16:00 24 Mechanical Ventilator 40 02/14/19 16:00 82 02/14/19 16:00 Mechanical Ventilator Mechanical Ventilator Mechanical Ventilator 02/14/19 16:00 96.8 70 24 126/56 (79) 95 02/14/19 15:30 72 24 127/52 (77) 99 02/14/19 15:00 24 Mechanical Ventilator 40 02/14/19 15:00 24 Mechanical Ventilator 40 02/14/19 15:00 72 24 129/59 (82) 94 02/14/19 14:52 77 24 96 Mechanical Ventilator 40 02/14/19 14:42 77 24 40 02/14/19 14:42 77 24 95 Mechanical Ventilator 40 02/14/19 14:30 84 24 168/77 (107) 100 02/14/19 14:00 86 24 157/74 (101) 100 02/14/19 14:00 24 Mechanical Ventilator 40 02/14/19 14:00 24 Mechanical Ventilator 40 02/14/19 13:30 83 24 155/77 (103) 100 02/14/19 13:09 77 24 40 02/14/19 13:00 87 24 129/60 (83) 100 02/14/19 13:00 24 Mechanical Ventilator 40 02/14/19 13:00 24 Mechanical Ventilator 40 02/14/19 12:30 73 24 135/63 (87) 100 02/14/19 12:21 129/55 02/14/19 12:21 24 Mechanical Ventilator 50.0 40 02/14/19 12:20 129/55 02/14/19 12:00 40 02/14/19 12:00 75 02/14/19 12:00 97.1 69 24 127/41 (69) 100 02/14/19 12:00 24 Mechanical Ventilator 40 02/14/19 12:00 24 Mechanical Ventilator 40 02/14/19 12:00 Mechanical Ventilator Mechanical Ventilator Mechanical Ventilator 02/14/19 11:30 69 24 129/55 (79) 100 02/14/19 11:00 24 Mechanical Ventilator 40 02/14/19 11:00 24 Mechanical Ventilator 40 02/14/19 11:00 70 24 129/54 (79) 93 02/14/19 10:47 75 24 96 Mechanical Ventilator 40 02/14/19 10:39 70 24 40 02/14/19 10:38 70 24 96 Mechanical Ventilator 40 02/14/19 10:30 71 24 135/58 (83) 94 Intake and Output 02/14/19 02/15/19 18:59 06:59 Intake Total 2107.5 ml 2967.000 ml Output Total 745 ml 1215 ml Balance 1362.5 ml 1752.000 ml Free Water 80 ml 60 ml IV Total 1652.5 ml 2367.000 ml Tube Feeding 315 ml 420 ml Blood Product 60 ml Other 120 ml Output Urine Total 745 ml 1215 ml # Bowel Movements 4 2 Laboratory Tests 02/15/19 04:50: White Blood Count 4.7L, Red Blood Count 2.99L, Hemoglobin 8.2L, Hematocrit 25.1L , Mean Corpuscular Volume 84, Mean Corpuscular Hemoglobin 27.5, Mean Corpuscular Hemoglobin Concent 32.7, Red Cell Distribution Width 17.8H, Platelet Count 205, Mean Platelet Volume 6.2L, Neutrophils (%) (Auto) , Lymphocytes (%) (Auto) , Monocytes (%) (Auto) , Eosinophils (%) (Auto) , Basophils (%) (Auto) , Sodium Level 147H, Potassium Level 5.2H, Chloride Level 114H, Carbon Dioxide Level 24, Anion Gap 9, Blood Urea Nitrogen 66H, Creatinine 2.9H, Estimat Glomerular Filtration Rate 22.4, Glucose Level 204H, Lactic Acid Level 2.00, Uric Acid 5.8, Calcium Level 7.8L, Phosphorus Level 4.4, Magnesium Level 2.6H, Total Bilirubin 0.3, Gamma Glutamyl Transpeptidase 329H, Aspartate Amino Transf (AST/SGOT) 30, Alanine Aminotransferase (ALT/SGPT) 51, Alkaline Phosphatase 153H, Troponin I 2.367H, C-Reactive Protein, Quantitative 3.2H, Pro- B-Type Natriuretic Peptide 5827H, Total Protein 5.5L, Albumin 1.9L, Globulin 3.6 , Albumin/Globulin Ratio 0.5L 02/15/19 06:21: Arterial Blood pH 7.453H, Arterial Blood Partial Pressure CO2 33.3L, Arterial Blood Partial Pressure O2 69.3L, Arterial Blood HCO3 22.8, Arterial Blood Oxygen Saturation 92.3L, Arterial Blood Base Excess -0.8, Benny Test Positive Height (Feet): 6 Height (Inches): 0.00 Weight (Pounds): 264 EENT: other - vented Cardiovascular: normal rate Respiratory/Chest: decreased breath sounds Abdomen: distended Mike Mcdonald MD Feb 15, 2019 10:20
--- NOTE | 2019-02-15 11:30 | NUR ---
NURSE NOTES: Patient RASS score -2 at this time on 9mcg/hr versed drip. Patient showing no sign of acute distress. Blood pressure 167/68, HR 82, SpO2 95%, and RR 23. Patient repositioned and oral care performed at this time. Bed in low position with bed alarm on and call light in reach.
[2019-02-15] MEDS: D5W IV SCH (12:08)
[2019-02-15] MEDS: SULFAMETHOXAZOLE IV SCH (12:08)
[2019-02-15] MEDS: TRIMETHOPRIM IV SCH (12:08)
--- NOTE | 2019-02-15 12:22 | NUR ---
NURSE NOTES: Patient restless without stimulation. Versed increased to 10g/hr. Will continue to monitor and titrate drips per protocol. Will perform oral care and bed bath at this time to make patient more comfortable. Addendum: 02/15/19 at 1450 by Suze Tang RN Correction 10mcg/hr
[2019-02-15] MEDS ORDERED: Tubing IV Secondary IV ONE (13:28)
[2019-02-15] MEDS ORDERED: NS 275ml ONE (13:28)
--- NOTE | 2019-02-15 13:30 | NUR ---
NURSE NOTES: Patient RASS score -2 at this time on 10mcg/hr versed drnara. Patient showing no sign of acute distress. Blood pressure 143/59, HR 73, SpO2 94%, and RR 24. Patient repositioned at this time. Bed in low position with bed alarm on and call light in reach. Addendum: 02/15/19 at 1509 by Suze Tang RN Spoke with Dr Meredith regarding patient condition. Obtained order to change tube feeding rate to 50mL/hr from 35mL/hr.
--- NOTE | 2019-02-15 13:40 | NUR ---
NURSE NOTES: Turned Versed drip to 12mcg/hr for a few minutes during bed bath because he is agitated and trying to get out of bed. Turned Versed drip back to 10mcg/hr after bed bath complete and patient comfortable in bed.
--- NOTE | 2019-02-15 14:27 | Pulmonolgy Critical Care Note ---
Critical Care - Asmt/Plan Problems: (1) Endotracheally intubated (2) Acute hypoxemic respiratory failure (3) Pneumonia (4) NSTEMI (non-ST elevated myocardial infarction) (5) AIDS (6) HIV disease (7) Hypertension (8) MDD (major depressive disorder), recurrent episode, moderate (9) Anemia (10) CKD (chronic kidney disease) (11) History of stroke (12) Diabetes (13) Anxiety (14) Malignant hypertension Assessment/Plan: VDRF ARDS Acute respiratory failure B pulmonary infiltrates, ? multilobar CAP vs atypical infection vs other ? PJP AIDS (CD4 191) NSTEMI H/O prior CVA HTN HL DM with uncontrolled BS ISH on CKD Anemia PLAN: Change vent settings AC 24 TV dec to 500 PEEP 5, titrate FiO2 to keep SaO2 >92% SBT in am - hold sedation RTC and PRN HHN's Continue Abx per ID (Zosyn, Vanco, TMP-SMX) + flucon per ID F/U Cx's and BAL studies Decrease SM to 20 IV BID Monitor volumes and renal function, F/U renal recs, ? hold fluids, diuretic trial F/U cards recs: will need further ischemia eval/cath once stabilized DVT Px: LMWH F/U ENDO recs, ? 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, SURGERY, HEME-ONC Discussed with: nurses, consultants Critical Care - Objective Last 24 Hour Vital Signs Date Time Temp Pulse Resp B/P (MAP) Pulse Ox O2 Delivery O2 Flow Rate FiO2 02/15/19 13:01 74 24 40 02/15/19 12:30 83 23 143/59 (87) 96 02/15/19 12:09 167/68 02/15/19 12:08 167/68 02/15/19 12:00 40 02/15/19 12:00 81 24 156/74 (101) 96 02/15/19 12:00 81 02/15/19 11:30 80 24 167/68 (101) 97 02/15/19 11:00 73 24 160/72 (101) 96 02/15/19 10:47 78 24 99 Mechanical Ventilator 40 02/15/19 10:37 75 24 96 Mechanical Ventilator 40 02/15/19 10:34 67 24 40 02/15/19 10:30 78 24 159/67 (97) 97 02/15/19 10:00 68 24 155/65 (95) 97 02/15/19 09:30 74 24 155/63 (93) 98 02/15/19 09:00 98.1 73 24 165/66 (99) 97 02/15/19 08:56 24 Mechanical Ventilator 40 02/15/19 08:56 24 Mechanical Ventilator 40 02/15/19 08:54 74 144/57 02/15/19 08:51 70 144/57 02/15/19 08:48 70 22 40 02/15/19 08:30 71 24 145/58 (87) 96 02/15/19 08:00 71 24 144/57 (86) 96 02/15/19 08:00 71 02/15/19 08:00 Mechanical Ventilator Mechanical Ventilator Mechanical Ventilator 02/15/19 08:00 40 02/15/19 07:30 73 24 146/60 (88) 97 02/15/19 07:06 70 24 98 Mechanical Ventilator 40 02/15/19 07:00 70 24 140/57 (84) 97 02/15/19 06:58 69 24 40 02/15/19 06:55 69 24 97 Mechanical Ventilator 40 02/15/19 06:30 68 24 136/55 (82) 97 02/15/19 06:00 72 24 138/60 (86) 98 02/15/19 06:00 24 Mechanical Ventilator 40 02/15/19 06:00 24 Mechanical Ventilator 40 02/15/19 05:36 146/55 02/15/19 05:35 146/55 02/15/19 05:30 74 24 146/55 (85) 100 02/15/19 05:19 14 Mechanical Ventilator 40 02/15/19 05:02 79 24 40 02/15/19 05:00 79 24 152/64 (93) 97 02/15/19 05:00 24 Mechanical Ventilator 40 02/15/19 05:00 24 Mechanical Ventilator 40 02/15/19 04:30 69 24 146/58 (87) 95 02/15/19 04:00 40 02/15/19 04:00 97.8 69 24 137/57 (83) 95 02/15/19 04:00 24 Mechanical Ventilator 40 02/15/19 04:00 24 Mechanical Ventilator 40 02/15/19 04:00 Mechanical Ventilator Mechanical Ventilator Mechanical Ventilator 02/15/19 04:00 69 02/15/19 03:30 70 24 141/60 (87) 94 02/15/19 03:08 71 24 98 Mechanical Ventilator 40 02/15/19 03:00 68 24 138/58 (84) 98 02/15/19 03:00 24 Mechanical Ventilator 40 02/15/19 03:00 24 Mechanical Ventilator 40 02/15/19 02:54 70 24 97 Mechanical Ventilator 40 02/15/19 02:53 69 24 40 02/15/19 02:30 70 24 133/54 (80) 95 02/15/19 02:00 24 Mechanical Ventilator 40 02/15/19 02:00 24 Mechanical Ventilator 40 02/15/19 02:00 71 24 132/53 (79) 95 02/15/19 01:30 77 24 150/62 (91) 97 02/15/19 01:22 77 24 40 02/15/19 01:00 19 Mechanical Ventilator 40 02/15/19 01:00 19 Mechanical Ventilator 40 02/15/19 01:00 81 19 169/76 (107) 97 02/15/19 00:32 24 Mechanical Ventilator 40 02/15/19 00:30 70 24 144/63 (90) 96 02/15/19 00:00 40 02/15/19 00:00 97.2 71 24 146/63 (90) 96 02/15/19 00:00 71 02/15/19 00:00 24 Mechanical Ventilator 40 02/15/19 00:00 24 Mechanical Ventilator 40 02/15/19 00:00 Mechanical Ventilator Mechanical Ventilator Mechanical Ventilator 02/14/19 23:41 144/58 02/14/19 23:40 144/58 02/14/19 23:38 71 24 99 Mechanical Ventilator 40 02/14/19 23:30 70 24 144/58 (86) 98 02/14/19 23:11 69 24 97 Mechanical Ventilator 40 02/14/19 23:11 69 24 40 02/14/19 23:00 68 24 139/56 (83) 97 02/14/19 23:00 24 Mechanical Ventilator 40 02/14/19 23:00 24 Mechanical Ventilator 40 02/14/19 22:30 68 24 142/56 (84) 97 02/14/19 22:00 24 Mechanical Ventilator 40 02/14/19 22:00 24 Mechanical Ventilator 40 02/14/19 22:00 69 24 144/61 (88) 99 02/14/19 21:30 72 24 141/58 (85) 97 02/14/19 21:21 71 24 40 02/14/19 21:00 72 24 142/59 (86) 98 02/14/19 21:00 24 Mechanical Ventilator 40 02/14/19 21:00 24 Mechanical Ventilator 40 02/14/19 20:50 70 137/53 02/14/19 20:30 69 24 137/53 (81) 98 02/14/19 20:00 Mechanical Ventilator Mechanical Ventilator Mechanical Ventilator 02/14/19 20:00 69 02/14/19 20:00 24 Mechanical Ventilator 40 02/14/19 20:00 24 Mechanical Ventilator 40 02/14/19 20:00 40 02/14/19 20:00 69 24 138/58 (84) 98 02/14/19 19:30 98.2 69 24 135/56 (82) 99 02/14/19 19:18 69 24 40 02/14/19 19:17 Mechanical Ventilator 40 02/14/19 19:17 Mechanical Ventilator 40 02/14/19 19:00 24 Mechanical Ventilator 40 02/14/19 19:00 24 Mechanical Ventilator 40 02/14/19 19:00 69 24 131/53 (79) 97 02/14/19 18:30 68 24 100/56 (71) 97 02/14/19 18:08 96.8 02/14/19 18:00 24 Mechanical Ventilator 40 02/14/19 18:00 24 Mechanical Ventilator 40 02/14/19 18:00 69 24 127/53 (77) 99 02/14/19 17:39 24 Mechanical Ventilator 50.0 40 02/14/19 17:38 127/52 02/14/19 17:38 24 Mechanical Ventilator 50.0 40 02/14/19 17:38 127/52 02/14/19 17:30 69 24 130/54 (79) 99 02/14/19 17:00 24 Mechanical Ventilator 40 02/14/19 17:00 24 Mechanical Ventilator 40 02/14/19 17:00 69 24 129/55 (79) 96 6/26/19 16:38 69 24 40 02/14/19 16:30 71 24 126/54 (78) 99 02/14/19 16:00 40 02/14/19 16:00 24 Mechanical Ventilator 40 02/14/19 16:00 24 Mechanical Ventilator 40 02/14/19 16:00 82 02/14/19 16:00 Mechanical Ventilator Mechanical Ventilator Mechanical Ventilator 02/14/19 16:00 96.8 70 24 126/56 (79) 95 02/14/19 15:30 72 24 127/52 (77) 99 02/14/19 15:00 24 Mechanical Ventilator 40 02/14/19 15:00 24 Mechanical Ventilator 40 02/14/19 15:00 72 24 129/59 (82) 94 02/14/19 14:52 77 24 96 Mechanical Ventilator 40 02/14/19 14:42 77 24 40 02/14/19 14:42 77 24 95 Mechanical Ventilator 40 02/14/19 14:30 84 24 168/77 (107) 100 Status: sedated - on vent Condition: critical, improving, other HEENT: atraumatic, normocephalic, other - ETT OGT Lungs: rhonchi Heart: HR/BP stable Abdomen: soft, non-tender, active bowel sounds Extremities: edema - 1+ x 4, cyanosis - no, clubbing - no Accucheck: 237 Blood Sugars: BS not controlled Critical Care - Subjective ROS Limited/Unobtainable: Yes ICU Day: 10 Intubation Day: 8 Interval Events: Stable on vent, FiO2 40, no sig secretions, Cr better, sedated, edematous Condition: improving IV Access: PICC, central - R fem HD cath EKG Rhythm: Sinus Rhythm FI02: 40 Vent Support Breath Rate: 24 Vent Support Mode: AC Vent Tidal Volume: 600 Sputum Amount: Small PEEP: 5.0 PIP: 40 Fluids: 1/2NS@100 Drips: Versed, Fentanyl, Insulin Tube Feeding Amount: 35 I&O: Intake and Output 02/14/19 02/15/19 18:59 06:59 Intake Total 2107.5 ml 2967.000 ml Output Total 745 ml 1215 ml Balance 1362.5 ml 1752.000 ml Free Water 80 ml 60 ml IV Total 1652.5 ml 2367.000 ml Tube Feeding 315 ml 420 ml Blood Product 60 ml Other 120 ml Output Urine Total 745 ml 1215 ml # Bowel Movements 4 2 Subjective: Sedated on fent/versed CXR: No change ET-Tube: 7.5 ET Position: 25 Labs: Laboratory Tests Test 02/15/19 04:50 02/15/19 06:21 White Blood Count 4.7 K/UL (4.8-10.8) L Red Blood Count 2.99 M/UL (4.70-6.10) L Hemoglobin 8.2 G/DL (14.2-18.0) L Hematocrit 25.1 % (42.0-52.0) L Mean Corpuscular Volume 84 FL (80-99) Mean Corpuscular Hemoglobin 27.5 PG (27.0-31.0) Mean Corpuscular Hemoglobin Concent 32.7 G/DL (32.0-36.0) Red Cell Distribution Width 17.8 % (11.6-14.8) H Platelet Count 205 K/UL (150-450) Mean Platelet Volume 6.2 FL (6.5-10.1) L Neutrophils (%) (Auto) % (45.0-75.0) Lymphocytes (%) (Auto) % (20.0-45.0) Monocytes (%) (Auto) % (1.0-10.0) Eosinophils (%) (Auto) % (0.0-3.0) Basophils (%) (Auto) % (0.0-2.0) Sodium Level 147 MMOL/L (136-145) H Potassium Level 5.2 MMOL/L (3.5-5.1) H Chloride Level 114 MMOL/L (98-107) H Carbon Dioxide Level 24 MMOL/L (21-32) Anion Gap 9 mmol/L (5-15) Blood Urea Nitrogen 66 mg/dL (7-18) H Creatinine 2.9 MG/DL (0.55-1.30) H Estimat Glomerular Filtration Rate 22.4 mL/min (>60) Glucose Level 204 MG/DL (74-106) H Lactic Acid Level 2.00 mmol/L (0.4-2.0) Uric Acid 5.8 MG/DL (2.6-7.2) Calcium Level 7.8 MG/DL (8.5-10.1) L Phosphorus Level 4.4 MG/DL (2.5-4.9) Magnesium Level 2.6 MG/DL (1.8-2.4) H Total Bilirubin 0.3 MG/DL (0.2-1.0) Gamma Glutamyl Transpeptidase 329 U/L (5-85) H Aspartate Amino Transf (AST/SGOT) 30 U/L (15-37) Alanine Aminotransferase (ALT/SGPT) 51 U/L (12-78) Alkaline Phosphatase 153 U/L (46-116) H Troponin I 2.367 ng/mL (0.000-0.056) C-Reactive Protein, Quantitative 3.2 mg/dL (0.00-0.90) H Pro-B-Type Natriuretic Peptide 5827 pg/mL (0-125) H Total Protein 5.5 G/DL (6.4-8.2) L Albumin 1.9 G/DL (3.4-5.0) L Globulin 3.6 g/dL Albumin/Globulin Ratio 0.5 (1.0-2.7) L Arterial Blood pH 7.453 (7.350-7.450) Arterial Blood Partial Pressure CO2 33.3 mmHg (35.0-45.0) L Arterial Blood Partial Pressure O2 69.3 mmHg (75.0-100.0) L Arterial Blood HCO3 22.8 mmol/L (22.0-26.0) Arterial Blood Oxygen Saturation 92.3 % (95-100) L Arterial Blood Base Excess -0.8 (-2-2) Benny Test Positive Brett Meredith MD Feb 15, 2019 14:27
--- NOTE | 2019-02-15 14:59 | Surgery Progress Note ---
Surgery Progress Note Subjective Procedure Performed left femoral temporary Hemodialysis catheter insertion Additional Comments ill appearing in ICU labs noted exam with anasarca Objective Last 24 Hour Vital Signs Date Time Temp Pulse Resp B/P (MAP) Pulse Ox O2 Delivery O2 Flow Rate FiO2 02/15/19 14:56 69 24 98 Mechanical Ventilator 40 02/15/19 14:48 73 24 96 Mechanical Ventilator 40 02/15/19 14:48 73 24 40 02/15/19 14:30 75 24 149/73 (98) 97 02/15/19 14:00 69 24 143/59 (87) 94 02/15/19 13:30 73 24 143/59 (87) 94 02/15/19 13:01 74 24 40 02/15/19 13:00 98.0 82 23 141/59 (86) 95 02/15/19 12:30 83 23 143/59 (87) 96 02/15/19 12:09 167/68 02/15/19 12:08 167/68 02/15/19 12:00 40 02/15/19 12:00 81 24 156/74 (101) 96 02/15/19 12:00 Mechanical Ventilator Mechanical Ventilator Mechanical Ventilator 02/15/19 12:00 81 02/15/19 11:30 80 24 167/68 (101) 97 02/15/19 11:00 73 24 160/72 (101) 96 02/15/19 10:47 78 24 99 Mechanical Ventilator 40 02/15/19 10:37 75 24 96 Mechanical Ventilator 40 02/15/19 10:34 67 24 40 02/15/19 10:30 78 24 159/67 (97) 97 02/15/19 10:00 68 24 155/65 (95) 97 02/15/19 09:30 74 24 155/63 (93) 98 02/15/19 09:00 98.1 73 24 165/66 (99) 97 02/15/19 08:56 24 Mechanical Ventilator 40 02/15/19 08:56 24 Mechanical Ventilator 40 02/15/19 08:54 74 144/57 02/15/19 08:51 70 144/57 02/15/19 08:48 70 22 40 02/15/19 08:30 71 24 145/58 (87) 96 02/15/19 08:00 71 24 144/57 (86) 96 02/15/19 08:00 71 02/15/19 08:00 Mechanical Ventilator Mechanical Ventilator Mechanical Ventilator 02/15/19 08:00 40 02/15/19 07:30 73 24 146/60 (88) 97 02/15/19 07:06 70 24 98 Mechanical Ventilator 40 02/15/19 07:00 70 24 140/57 (84) 97 02/15/19 06:58 69 24 40 02/15/19 06:55 69 24 97 Mechanical Ventilator 40 02/15/19 06:30 68 24 136/55 (82) 97 02/15/19 06:00 72 24 138/60 (86) 98 02/15/19 06:00 24 Mechanical Ventilator 40 02/15/19 06:00 24 Mechanical Ventilator 40 02/15/19 05:36 146/55 02/15/19 05:35 146/55 02/15/19 05:30 74 24 146/55 (85) 100 02/15/19 05:19 14 Mechanical Ventilator 40 02/15/19 05:02 79 24 40 02/15/19 05:00 79 24 152/64 (93) 97 02/15/19 05:00 24 Mechanical Ventilator 40 02/15/19 05:00 24 Mechanical Ventilator 40 02/15/19 04:30 69 24 146/58 (87) 95 02/15/19 04:00 40 02/15/19 04:00 97.8 69 24 137/57 (83) 95 02/15/19 04:00 24 Mechanical Ventilator 40 02/15/19 04:00 24 Mechanical Ventilator 40 02/15/19 04:00 Mechanical Ventilator Mechanical Ventilator Mechanical Ventilator 02/15/19 04:00 69 02/15/19 03:30 70 24 141/60 (87) 94 02/15/19 03:08 71 24 98 Mechanical Ventilator 40 02/15/19 03:00 68 24 138/58 (84) 98 02/15/19 03:00 24 Mechanical Ventilator 40 02/15/19 03:00 24 Mechanical Ventilator 40 02/15/19 02:54 70 24 97 Mechanical Ventilator 40 02/15/19 02:53 69 24 40 02/15/19 02:30 70 24 133/54 (80) 95 02/15/19 02:00 24 Mechanical Ventilator 40 02/15/19 02:00 24 Mechanical Ventilator 40 02/15/19 02:00 71 24 132/53 (79) 95 02/15/19 01:30 77 24 150/62 (91) 97 02/15/19 01:22 77 24 40 02/15/19 01:00 19 Mechanical Ventilator 40 02/15/19 01:00 19 Mechanical Ventilator 40 02/15/19 01:00 81 19 169/76 (107) 97 02/15/19 00:32 24 Mechanical Ventilator 40 02/15/19 00:30 70 24 144/63 (90) 96 02/15/19 00:00 40 02/15/19 00:00 97.2 71 24 146/63 (90) 96 02/15/19 00:00 71 02/15/19 00:00 24 Mechanical Ventilator 40 02/15/19 00:00 24 Mechanical Ventilator 40 02/15/19 00:00 Mechanical Ventilator Mechanical Ventilator Mechanical Ventilator 02/14/19 23:41 144/58 02/14/19 23:40 144/58 02/14/19 23:38 71 24 99 Mechanical Ventilator 40 02/14/19 23:30 70 24 144/58 (86) 98 02/14/19 23:11 69 24 97 Mechanical Ventilator 40 02/14/19 23:11 69 24 40 02/14/19 23:00 68 24 139/56 (83) 97 02/14/19 23:00 24 Mechanical Ventilator 40 02/14/19 23:00 24 Mechanical Ventilator 40 02/14/19 22:30 68 24 142/56 (84) 97 02/14/19 22:00 24 Mechanical Ventilator 40 02/14/19 22:00 24 Mechanical Ventilator 40 02/14/19 22:00 69 24 144/61 (88) 99 02/14/19 21:30 72 24 141/58 (85) 97 02/14/19 21:21 71 24 40 02/14/19 21:00 72 24 142/59 (86) 98 02/14/19 21:00 24 Mechanical Ventilator 40 02/14/19 21:00 24 Mechanical Ventilator 40 02/14/19 20:50 70 137/53 02/14/19 20:30 69 24 137/53 (81) 98 02/14/19 20:00 Mechanical Ventilator Mechanical Ventilator Mechanical Ventilator 02/14/19 20:00 69 02/14/19 20:00 24 Mechanical Ventilator 40 6/26/19 20:00 24 Mechanical Ventilator 40 02/14/19 20:00 40 02/14/19 20:00 69 24 138/58 (84) 98 02/14/19 19:30 98.2 69 24 135/56 (82) 99 02/14/19 19:18 69 24 40 02/14/19 19:17 Mechanical Ventilator 40 02/14/19 19:17 Mechanical Ventilator 40 02/14/19 19:00 24 Mechanical Ventilator 40 02/14/19 19:00 24 Mechanical Ventilator 40 02/14/19 19:00 69 24 131/53 (79) 97 02/14/19 18:30 68 24 100/56 (71) 97 02/14/19 18:08 96.8 02/14/19 18:00 24 Mechanical Ventilator 40 02/14/19 18:00 24 Mechanical Ventilator 40 02/14/19 18:00 69 24 127/53 (77) 99 02/14/19 17:39 24 Mechanical Ventilator 50.0 40 02/14/19 17:38 127/52 02/14/19 17:38 24 Mechanical Ventilator 50.0 40 02/14/19 17:38 127/52 02/14/19 17:30 69 24 130/54 (79) 99 02/14/19 17:00 24 Mechanical Ventilator 40 02/14/19 17:00 24 Mechanical Ventilator 40 02/14/19 17:00 69 24 129/55 (79) 96 02/14/19 16:38 69 24 40 02/14/19 16:30 71 24 126/54 (78) 99 02/14/19 16:00 40 02/14/19 16:00 24 Mechanical Ventilator 40 02/14/19 16:00 24 Mechanical Ventilator 40 02/14/19 16:00 82 02/14/19 16:00 Mechanical Ventilator Mechanical Ventilator Mechanical Ventilator 02/14/19 16:00 96.8 70 24 126/56 (79) 95 02/14/19 15:30 72 24 127/52 (77) 99 02/14/19 15:00 24 Mechanical Ventilator 40 02/14/19 15:00 24 Mechanical Ventilator 40 02/14/19 15:00 72 24 129/59 (82) 94 I&O Intake and Output 02/14/19 02/15/19 19:00 07:00 Intake Total 2118.0 ml 2803.000 ml Output Total 730 ml 1255 ml Balance 1388.0 ml 1548.000 ml Free Water 80 ml 60 ml IV Total 1663.0 ml 2203.000 ml Tube Feeding 315 ml 420 ml Blood Product 60 ml Other 120 ml Output Urine Total 730 ml 1255 ml # Bowel Movements 4 2 Dressing: saturated Wound: clean Drains: other Cardiovascular: RSR Respiratory: decreased breath sounds Abdomen: soft, present bowel sounds, non-distended Extremities: edema, no cyanosis Laboratory Tests Test 02/15/19 04:50 02/15/19 06:21 White Blood Count 4.7 K/UL (4.8-10.8) L Red Blood Count 2.99 M/UL (4.70-6.10) L Hemoglobin 8.2 G/DL (14.2-18.0) L Hematocrit 25.1 % (42.0-52.0) L Mean Corpuscular Volume 84 FL (80-99) Mean Corpuscular Hemoglobin 27.5 PG (27.0-31.0) Mean Corpuscular Hemoglobin Concent 32.7 G/DL (32.0-36.0) Red Cell Distribution Width 17.8 % (11.6-14.8) H Platelet Count 205 K/UL (150-450) Mean Platelet Volume 6.2 FL (6.5-10.1) L Neutrophils (%) (Auto) % (45.0-75.0) Lymphocytes (%) (Auto) % (20.0-45.0) Monocytes (%) (Auto) % (1.0-10.0) Eosinophils (%) (Auto) % (0.0-3.0) Basophils (%) (Auto) % (0.0-2.0) Sodium Level 147 MMOL/L (136-145) H Potassium Level 5.2 MMOL/L (3.5-5.1) H Chloride Level 114 MMOL/L (98-107) H Carbon Dioxide Level 24 MMOL/L (21-32) Anion Gap 9 mmol/L (5-15) Blood Urea Nitrogen 66 mg/dL (7-18) H Creatinine 2.9 MG/DL (0.55-1.30) H Estimat Glomerular Filtration Rate 22.4 mL/min (>60) Glucose Level 204 MG/DL (74-106) H Lactic Acid Level 2.00 mmol/L (0.4-2.0) Uric Acid 5.8 MG/DL (2.6-7.2) Calcium Level 7.8 MG/DL (8.5-10.1) L Phosphorus Level 4.4 MG/DL (2.5-4.9) Magnesium Level 2.6 MG/DL (1.8-2.4) H Total Bilirubin 0.3 MG/DL (0.2-1.0) Gamma Glutamyl Transpeptidase 329 U/L (5-85) H Aspartate Amino Transf (AST/SGOT) 30 U/L (15-37) Alanine Aminotransferase (ALT/SGPT) 51 U/L (12-78) Alkaline Phosphatase 153 U/L (46-116) H Troponin I 2.367 ng/mL (0.000-0.056) C-Reactive Protein, Quantitative 3.2 mg/dL (0.00-0.90) H Pro-B-Type Natriuretic Peptide 5827 pg/mL (0-125) H Total Protein 5.5 G/DL (6.4-8.2) L Albumin 1.9 G/DL (3.4-5.0) L Globulin 3.6 g/dL Albumin/Globulin Ratio 0.5 (1.0-2.7) L Arterial Blood pH 7.453 (7.350-7.450) Arterial Blood Partial Pressure CO2 33.3 mmHg (35.0-45.0) L Arterial Blood Partial Pressure O2 69.3 mmHg (75.0-100.0) L Arterial Blood HCO3 22.8 mmol/L (22.0-26.0) Arterial Blood Oxygen Saturation 92.3 % (95-100) L Arterial Blood Base Excess -0.8 (-2-2) Benny Test Positive Plan Problems: (1) Hypoxia Assessment & Plan: Extensive bilateral upper lobe infiltrates likely inflammatory/infectious. Correlate clinically. Tuberculosis is not excludable. Bilateral pleural effusions. Endotracheal tube and nasogastric tube in good position Atherosclerotic vascular disease (2) Respiratory distress Assessment & Plan: AM CXR pulm input appreciated (3) Sepsis Assessment & Plan: Sepsis with tachycardia, leukocytosis, abnormal labs, respiratory distress on vent support via ET tube, acidosis. Cont IV abx CXR noted appreciate ICU team care abnormal lft's US noted will need temp HD line as will benefit from HD will cont to follow with recs trend labs Rx as written Moiz Costa Feb 15, 2019 14:59
--- NOTE | 2019-02-15 15:10 | NUR ---
NURSE NOTES: Spoke with Dr Ricketts regarding patient condition. No new orders received.
--- NOTE | 2019-02-15 15:30 | NUR ---
NURSE NOTES: Patient RASS score -2 at this time. Versed drip running at 10mcg/hr. Will continue to monitor and titrate per protocol. Patient blood pressure 105/65, HR 87, SpO2 99%, and RR 25. Patient resting comfortably with no sign of acute distress. Bed alarm on with call light in reach. Bilateral wrist restraint intact. Bilateral pulses present with dependent edema non-pitting and skin intact.
--- NOTE | 2019-02-15 15:35 | NUR ---
NURSE NOTES: Charge Nurse TESSA Whitt witnessed my waste of remainder of Versed drip. There was less than 5cc let in container.
--- NOTE | 2019-02-15 17:21 | Neurology Progress Note ---
Interim History Interim History ROS Limited/Unobtainable: Yes Complaints: AMS Events: This Visit was performed on February 15, [address] Mayito Escobar. Interim History Unable to wean at this time. Patient becomes very agitated with sedation is weaned. Review of Systems All Systems: reviewed and negative except above Objective Physical Exam Last Vital Signs Date Time Temp Pulse Resp B/P (MAP) Pulse Ox O2 Delivery O2 Flow Rate FiO2 02/15/19 17:00 72 24 150/66 (94) 96 02/15/19 16:32 40 02/15/19 16:00 98.5 02/15/19 16:00 Mechanical Ventilator Mechanical Ventilator Mechanical Ventilator 02/14/19 17:39 50.0 Laboratory Tests Test 02/15/19 04:50 02/15/19 06:21 White Blood Count 4.7 K/UL (4.8-10.8) L Red Blood Count 2.99 M/UL (4.70-6.10) L Hemoglobin 8.2 G/DL (14.2-18.0) L Hematocrit 25.1 % (42.0-52.0) L Mean Corpuscular Volume 84 FL (80-99) Mean Corpuscular Hemoglobin 27.5 PG (27.0-31.0) Mean Corpuscular Hemoglobin Concent 32.7 G/DL (32.0-36.0) Red Cell Distribution Width 17.8 % (11.6-14.8) H Platelet Count 205 K/UL (150-450) Mean Platelet Volume 6.2 FL (6.5-10.1) L Neutrophils (%) (Auto) % (45.0-75.0) Lymphocytes (%) (Auto) % (20.0-45.0) Monocytes (%) (Auto) % (1.0-10.0) Eosinophils (%) (Auto) % (0.0-3.0) Basophils (%) (Auto) % (0.0-2.0) Sodium Level 147 MMOL/L (136-145) H Potassium Level 5.2 MMOL/L (3.5-5.1) H Chloride Level 114 MMOL/L (98-107) H Carbon Dioxide Level 24 MMOL/L (21-32) Anion Gap 9 mmol/L (5-15) Blood Urea Nitrogen 66 mg/dL (7-18) H Creatinine 2.9 MG/DL (0.55-1.30) H Estimat Glomerular Filtration Rate 22.4 mL/min (>60) Glucose Level 204 MG/DL (74-106) H Lactic Acid Level 2.00 mmol/L (0.4-2.0) Uric Acid 5.8 MG/DL (2.6-7.2) Calcium Level 7.8 MG/DL (8.5-10.1) L Phosphorus Level 4.4 MG/DL (2.5-4.9) Magnesium Level 2.6 MG/DL (1.8-2.4) H Total Bilirubin 0.3 MG/DL (0.2-1.0) Gamma Glutamyl Transpeptidase 329 U/L (5-85) H Aspartate Amino Transf (AST/SGOT) 30 U/L (15-37) Alanine Aminotransferase (ALT/SGPT) 51 U/L (12-78) Alkaline Phosphatase 153 U/L (46-116) H Troponin I 2.367 ng/mL (0.000-0.056) C-Reactive Protein, Quantitative 3.2 mg/dL (0.00-0.90) H Pro-B-Type Natriuretic Peptide 5827 pg/mL (0-125) H Total Protein 5.5 G/DL (6.4-8.2) L Albumin 1.9 G/DL (3.4-5.0) L Globulin 3.6 g/dL Albumin/Globulin Ratio 0.5 (1.0-2.7) L Arterial Blood pH 7.453 (7.350-7.450) Arterial Blood Partial Pressure CO2 33.3 mmHg (35.0-45.0) L Arterial Blood Partial Pressure O2 69.3 mmHg (75.0-100.0) L Arterial Blood HCO3 22.8 mmol/L (22.0-26.0) Arterial Blood Oxygen Saturation 92.3 % (95-100) L Arterial Blood Base Excess -0.8 (-2-2) Benny Test Positive General: well developed, well nourished, other Head: normocophalic Neck: no rigidity EENT: other Neurologic Exam Mental Status: other Speech: other Language: other Cranial Nerve II: other Cranial Nerves III, IV, : PERRLA, other Cranial Nerve V: other Cranial Nerve VII: other Cranial Nerve VIII: other Cranial Nerve IX: other Cranial Nerve X: other Cranial Nerve XI: other Cranial Nerve XII: other Motor System: other Sensory: other Coordination: other Deep Tendon Reflexes: 0 bicep (L), 0 bicep (R), 0 tricep (L), 0 tricep (R), 0 brachioradialis (L), 0 brachioradialis (R), 0 knee (L), 0 knee (R), 0 ankle (L) , 0 ankle (R) Reflexes: mute plantar (L), mute plantar (R) Gait: other Imaging No motor exam. Patient is deeply sedated at this time. Pupillary responses are 3 + bilaterally and intact. As per RN, becomes very agitated, PARKER x 4 AG when sedation is paused. Patient moves his head from side to side and is strong bilaterally. 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 (33) acute small R pontomedullary and left cerebellar peduncle strokes. 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 SBP<140 Wean sedation and vent as able. Na 135-145 - may add water to enteral feeding to resolve this Lubricating + Abx/Steroid Eye drops- cool compresses recCharlee Escobar N.P. Feb 15, 2019 17:21
--- NOTE | 2019-02-15 17:41 | NUR ---
NURSE NOTES: Patient RASS score -4 at this time. Versed drip decreased to 8mcg/hr. Will continue to monitor and titrate per protocol. Patient blood pressure 151/65, HR 85, SpO2 100%, and RR 20. Patient resting comfortably with no sign of acute distress. Bed alarm on with call light in reach. Bilateral wrist restraint intact. Bilateral pulses present with dependent edema non-pitting.
--- NOTE | 2019-02-15 18:12 | General Progress Note ---
Assessment/Plan Problem List: (1) ISH (acute kidney injury) ICD Codes: N17.9 - Acute kidney failure, unspecified SNOMED: 34176381 (2) Uncontrolled type 2 diabetes mellitus with chronic kidney disease ICD Codes: E11.22 - Type 2 diabetes mellitus with diabetic chronic kidney disease; E11.65 - Type 2 diabetes mellitus with hyperglycemia SNOMED: 19236858, 436624227, 734166906 (3) HIV disease ICD Codes: B20 - Human immunodeficiency virus [HIV] disease SNOMED: 97945275 (4) Respiratory distress ICD Codes: R06.03 - Acute respiratory distress SNOMED: 452376004 Status: stable Assessment/Plan: DC insulin gtt - start Novolog 10 units every 4 hours - start Novolog sliding scale resistant scale every 4 hours Subjective ROS Limited/Unobtainable: Yes Allergies: Coded Allergies: No Known Allergies (Unverified , 02/05/13) Subjective events noted remained intubated and sedated in ICU Item Value Date Time Bedside Blood Glucose 169 mg/dl H 02/15/19 1609 Bedside Blood Glucose 237 mg/dl H 02/15/19 1410 Bedside Blood Glucose 185 mg/dl H 02/15/19 1006 Bedside Blood Glucose 182 mg/dl H 02/15/19 0600 Bedside Blood Glucose 190 mg/dl H 02/15/19 0200 Bedside Blood Glucose 143 mg/dl H 02/14/19 2200 Objective Last 24 Hour Vital Signs Date Time Temp Pulse Resp B/P (MAP) Pulse Ox O2 Delivery O2 Flow Rate FiO2 02/15/19 18:00 79 24 162/67 (98) 97 02/15/19 17:30 77 24 151/65 (93) 97 02/15/19 17:00 24 Mechanical Ventilator 40 02/15/19 17:00 24 Mechanical Ventilator 40 02/15/19 17:00 72 24 150/66 (94) 96 02/15/19 16:32 73 24 40 02/15/19 16:30 74 24 162/71 (101) 96 02/15/19 16:00 98.5 81 24 164/69 (100) 98 02/15/19 16:00 81 02/15/19 16:00 24 Mechanical Ventilator 40 02/15/19 16:00 24 Mechanical Ventilator 40 02/15/19 16:00 40 02/15/19 16:00 Mechanical Ventilator Mechanical Ventilator Mechanical Ventilator 02/15/19 15:31 22 Mechanical Ventilator 40 02/15/19 15:30 78 25 165/75 (105) 97 02/15/19 15:00 78 24 150/63 (92) 97 02/15/19 15:00 24 Mechanical Ventilator 40 02/15/19 15:00 24 Mechanical Ventilator 40 02/15/19 14:56 69 24 98 Mechanical Ventilator 40 02/15/19 14:48 73 24 96 Mechanical Ventilator 40 02/15/19 14:48 73 24 40 02/15/19 14:30 75 24 149/73 (98) 97 02/15/19 14:00 24 Mechanical Ventilator 40 02/15/19 14:00 24 Mechanical Ventilator 40 02/15/19 14:00 69 24 143/59 (87) 94 02/15/19 13:30 73 24 143/59 (87) 94 02/15/19 13:01 74 24 40 02/15/19 13:00 23 Mechanical Ventilator 40 02/15/19 13:00 23 Mechanical Ventilator 40 02/15/19 13:00 98.0 82 23 141/59 (86) 95 02/15/19 12:30 83 23 143/59 (87) 96 02/15/19 12:30 24 Mechanical Ventilator 40 02/15/19 12:30 24 Mechanical Ventilator 40 02/15/19 12:09 167/68 02/15/19 12:08 167/68 02/15/19 12:00 40 02/15/19 12:00 81 24 156/74 (101) 96 02/15/19 12:00 Mechanical Ventilator Mechanical Ventilator Mechanical Ventilator 02/15/19 12:00 81 02/15/19 12:00 24 Mechanical Ventilator 40 02/15/19 12:00 24 Mechanical Ventilator 40 02/15/19 11:30 80 24 167/68 (101) 97 02/15/19 11:00 24 Mechanical Ventilator 40 02/15/19 11:00 24 Mechanical Ventilator 40 02/15/19 11:00 73 24 160/72 (101) 96 02/15/19 10:47 78 24 99 Mechanical Ventilator 40 02/15/19 10:37 75 24 96 Mechanical Ventilator 40 02/15/19 10:34 67 24 40 02/15/19 10:30 78 24 159/67 (97) 97 02/15/19 10:00 68 24 155/65 (95) 97 02/15/19 10:00 24 Mechanical Ventilator 40 02/15/19 10:00 24 Mechanical Ventilator 40 02/15/19 09:30 24 Mechanical Ventilator 40 02/15/19 09:30 24 Mechanical Ventilator 40 02/15/19 09:30 74 24 155/63 (93) 98 02/15/19 09:00 98.1 73 24 165/66 (99) 97 02/15/19 09:00 24 Mechanical Ventilator 40 02/15/19 09:00 24 40 02/15/19 08:56 24 Mechanical Ventilator 40 02/15/19 08:56 24 Mechanical Ventilator 40 02/15/19 08:55 24 Mechanical Ventilator 40 02/15/19 08:55 24 Mechanical Ventilator 40 02/15/19 08:54 74 144/57 02/15/19 08:51 70 144/57 02/15/19 08:48 70 22 40 02/15/19 08:30 71 24 145/58 (87) 96 02/15/19 08:00 71 24 144/57 (86) 96 02/15/19 08:00 71 02/15/19 08:00 Mechanical Ventilator Mechanical Ventilator Mechanical Ventilator 02/15/19 08:00 40 02/15/19 08:00 24 Mechanical Ventilator 40 02/15/19 08:00 24 Mechanical Ventilator 40 02/15/19 07:30 73 24 146/60 (88) 97 02/15/19 07:06 70 24 98 Mechanical Ventilator 40 02/15/19 07:00 24 Mechanical Ventilator 40 02/15/19 07:00 24 Mechanical Ventilator 40 02/15/19 07:00 70 24 140/57 (84) 97 02/15/19 06:58 69 24 40 02/15/19 06:55 69 24 97 Mechanical Ventilator 40 02/15/19 06:30 68 24 136/55 (82) 97 02/15/19 06:00 72 24 138/60 (86) 98 02/15/19 06:00 24 Mechanical Ventilator 40 02/15/19 06:00 24 Mechanical Ventilator 40 02/15/19 05:36 146/55 02/15/19 05:35 146/55 02/15/19 05:30 74 24 146/55 (85) 100 02/15/19 05:19 14 Mechanical Ventilator 40 02/15/19 05:02 79 24 40 02/15/19 05:00 79 24 152/64 (93) 97 02/15/19 05:00 24 Mechanical Ventilator 40 02/15/19 05:00 24 Mechanical Ventilator 40 02/15/19 04:30 69 24 146/58 (87) 95 02/15/19 04:00 40 02/15/19 04:00 97.8 69 24 137/57 (83) 95 02/15/19 04:00 24 Mechanical Ventilator 40 02/15/19 04:00 24 Mechanical Ventilator 40 02/15/19 04:00 Mechanical Ventilator Mechanical Ventilator Mechanical Ventilator 02/15/19 04:00 69 02/15/19 03:30 70 24 141/60 (87) 94 02/15/19 03:08 71 24 98 Mechanical Ventilator 40 02/15/19 03:00 68 24 138/58 (84) 98 02/15/19 03:00 24 Mechanical Ventilator 40 02/15/19 03:00 24 Mechanical Ventilator 40 02/15/19 02:54 70 24 97 Mechanical Ventilator 40 02/15/19 02:53 69 24 40 02/15/19 02:30 70 24 133/54 (80) 95 02/15/19 02:00 24 Mechanical Ventilator 40 02/15/19 02:00 24 Mechanical Ventilator 40 02/15/19 02:00 71 24 132/53 (79) 95 02/15/19 01:30 77 24 150/62 (91) 97 02/15/19 01:22 77 24 40 02/15/19 01:00 19 Mechanical Ventilator 40 02/15/19 01:00 19 Mechanical Ventilator 40 02/15/19 01:00 81 19 169/76 (107) 97 02/15/19 00:32 24 Mechanical Ventilator 40 02/15/19 00:30 70 24 144/63 (90) 96 02/15/19 00:00 40 02/15/19 00:00 97.2 71 24 146/63 (90) 96 02/15/19 00:00 71 02/15/19 00:00 24 Mechanical Ventilator 40 02/15/19 00:00 24 Mechanical Ventilator 40 02/15/19 00:00 Mechanical Ventilator Mechanical Ventilator Mechanical Ventilator 02/14/19 23:41 144/58 02/14/19 23:40 144/58 02/14/19 23:38 71 24 99 Mechanical Ventilator 40 02/14/19 23:30 70 24 144/58 (86) 98 02/14/19 23:11 69 24 97 Mechanical Ventilator 40 02/14/19 23:11 69 24 40 02/14/19 23:00 68 24 139/56 (83) 97 02/14/19 23:00 24 Mechanical Ventilator 40 02/14/19 23:00 24 Mechanical Ventilator 40 02/14/19 22:30 68 24 142/56 (84) 97 02/14/19 22:00 24 Mechanical Ventilator 40 02/14/19 22:00 24 Mechanical Ventilator 40 02/14/19 22:00 69 24 144/61 (88) 99 02/14/19 21:30 72 24 141/58 (85) 97 02/14/19 21:21 71 24 40 02/14/19 21:00 72 24 142/59 (86) 98 02/14/19 21:00 24 Mechanical Ventilator 40 02/14/19 21:00 24 Mechanical Ventilator 40 02/14/19 20:50 70 137/53 02/14/19 20:30 69 24 137/53 (81) 98 02/14/19 20:00 Mechanical Ventilator Mechanical Ventilator Mechanical Ventilator 02/14/19 20:00 69 02/14/19 20:00 24 Mechanical Ventilator 40 02/14/19 20:00 24 Mechanical Ventilator 40 02/14/19 20:00 40 02/14/19 20:00 69 24 138/58 (84) 98 02/14/19 19:30 98.2 69 24 135/56 (82) 99 02/14/19 19:18 69 24 40 02/14/19 19:17 Mechanical Ventilator 40 02/14/19 19:17 Mechanical Ventilator 40 02/14/19 19:00 24 Mechanical Ventilator 40 02/14/19 19:00 24 Mechanical Ventilator 40 02/14/19 19:00 69 24 131/53 (79) 97 02/14/19 18:30 68 24 100/56 (71) 97 Intake and Output 02/14/19 02/15/19 19:00 07:00 Intake Total 2118.0 ml 2978.750 ml Output Total 730 ml 1255 ml Balance 1388.0 ml 1723.750 ml Free Water 80 ml 60 ml IV Total 1663.0 ml 2378.750 ml Tube Feeding 315 ml 420 ml Blood Product 60 ml Other 120 ml Output Urine Total 730 ml 1255 ml # Bowel Movements 4 2 Laboratory Tests 02/15/19 04:50: White Blood Count 4.7L, Red Blood Count 2.99L, Hemoglobin 8.2L, Hematocrit 25.1L , Mean Corpuscular Volume 84, Mean Corpuscular Hemoglobin 27.5, Mean Corpuscular Hemoglobin Concent 32.7, Red Cell Distribution Width 17.8H, Platelet Count 205, Mean Platelet Volume 6.2L, Neutrophils (%) (Auto) , Lymphocytes (%) (Auto) , Monocytes (%) (Auto) , Eosinophils (%) (Auto) , Basophils (%) (Auto) , Sodium Level 147H, Potassium Level 5.2H, Chloride Level 114H, Carbon Dioxide Level 24, Anion Gap 9, Blood Urea Nitrogen 66H, Creatinine 2.9H, Estimat Glomerular Filtration Rate 22.4, Glucose Level 204H, Lactic Acid Level 2.00, Uric Acid 5.8, Calcium Level 7.8L, Phosphorus Level 4.4, Magnesium Level 2.6H, Total Bilirubin 0.3, Gamma Glutamyl Transpeptidase 329H, Aspartate Amino Transf (AST/SGOT) 30, Alanine Aminotransferase (ALT/SGPT) 51, Alkaline Phosphatase 153H, Troponin I 2.367H, C-Reactive Protein, Quantitative 3.2H, Pro- B-Type Natriuretic Peptide 5827H, Total Protein 5.5L, Albumin 1.9L, Globulin 3.6 , Albumin/Globulin Ratio 0.5L 02/15/19 06:21: Arterial Blood pH 7.453H, Arterial Blood Partial Pressure CO2 33.3L, Arterial Blood Partial Pressure O2 69.3L, Arterial Blood HCO3 22.8, Arterial Blood Oxygen Saturation 92.3L, Arterial Blood Base Excess -0.8, Benny Test Positive Height (Feet): 6 Height (Inches): 0.00 Weight (Pounds): 264 General Appearance: severe distress, other - intubated EENT: other - ETT Neck: normal alignment Cardiovascular: tachycardia Respiratory/Chest: decreased breath sounds Abdomen: normal bowel sounds Edema: 2+ Arm (L), 2+ Arm (R), 2+ Leg (L), 2+ Leg (R), 2+ Pedal (L), 2+ Pedal ( R), 2+ Generalized Objective Current Medications Medications (Trade) Dose Ordered Sig/Marquis Route PRN Reason Start Time Stop Time Status Last Admin Dose Admin Acetaminophen (Tylenol) 650 mg Q4H PRN ORAL Mild Pain (Pain Scale 1-3) 02/07/19 11:15 03/08/19 17:29 02/07/19 23:01 Acetaminophen/ Butalbital/ Caffeine (Fioricet) 1 tab Q8H PRN ORAL For Headache 02/08/19 17:15 03/10/19 17:14 Albuterol/ Ipratropium (Albuterol/ Ipratropium) 3 ml Q4HRT HHN 02/14/19 23:00 02/19/19 22:59 02/15/19 14:48 Alprazolam (Xanax) 0.5 mg Q6H PRN ORAL For Anxiety 02/08/19 20:15 02/15/19 20:14 02/13/19 14:01 Amlodipine Besylate (Norvasc) 10 mg DAILY NG 02/15/19 09:00 03/14/19 15:59 02/15/19 08:54 Aspirin (Ecotrin) 81 mg DAILY ORAL 02/08/19 09:00 03/09/19 08:59 02/15/19 08:54 Atorvastatin Calcium (Lipitor) 40 mg QHS ORAL 02/08/19 21:00 03/10/19 20:59 02/14/19 20:50 Bisacodyl (Dulcolax) 5 mg DAILYPRN PRN ORAL Constipation 02/08/19 17:15 03/10/19 17:14 02/13/19 20:34 Chlorhexidine Gluconate (Jessy-Hex 2%) 1 applic DAILY@1999 TOPIC 02/13/19 20:00 03/15/19 19:59 02/14/19 20:49 Dextrose (Dextrose 50%) 25 ml Q30M PRN IV HYPOGLYCEMIA 02/11/19 17:15 03/13/19 17:14 Dextrose (Dextrose 50%) 50 ml Q30M PRN IV HYPOGLYCEMIA 02/11/19 17:15 03/13/19 17:14 Docusate Sodium (Colace) 100 mg TID GT 02/12/19 18:00 03/12/19 08:59 02/15/19 12:20 Enoxaparin Sodium (Lovenox) 40 mg Q24H SUBQ 02/07/19 21:00 03/08/19 20:59 02/14/19 20:52 Fentanyl Citrate 2500 mcg/Sodium Chloride 250 ml @ 0 mls/hr Q24H IV 02/13/19 15:45 02/20/19 15:44 02/15/19 08:56 Fluconazole/ Sodium Chloride 100 ml @ 100 mls/hr Q24H IV 02/14/19 18:00 02/21/19 17:59 02/14/19 17:40 Guaifenesin (Mucinex ER) 600 mg TWICE A DAY ORAL 02/07/19 18:00 03/09/19 08:59 02/15/19 08:51 Hydralazine HCl (Apresoline) 25 mg Q4H PRN NG SBP > 160mmHg 02/12/19 16:00 03/08/19 11:14 Hydralazine HCl (Apresoline) 50 mg Q6HR NG 02/14/19 00:00 03/14/19 17:59 02/15/19 12:09 Insulin Human Regular (NovoLIN R) 5 units PRN PRN IV BS 200-299 02/11/19 17:15 03/13/19 17:14 02/15/19 14:10 Insulin Human Regular (NovoLIN R) 10 units PRN PRN IV BS=>300 02/11/19 17:15 03/13/19 17:14 02/13/19 02:05 Insulin Human Regular 100 units/ Sodium Chloride 100 ml @ 0 mls/hr Q24H IV 02/12/19 10:42 03/14/19 10:41 02/15/19 16:09 Isosorbide Dinitrate (Isordil) 20 mg Q6HR NG 02/15/19 12:00 03/15/19 12:59 02/15/19 12:08 Lansoprazole (Prevacid) 30 mg BID NG 02/12/19 18:00 03/14/19 17:59 02/15/19 08:55 Methylprednisolone Sodium Succinate (Solu-MEDROL) 20 mg EVERY 12 HOURS IVP 02/15/19 21:00 03/12/19 20:59 Metoprolol Tartrate (Lopressor) 100 mg Q12HR ORAL 02/07/19 21:00 03/08/19 20:59 02/15/19 08:51 Midazolam HCl (Versed 2mg/2ml vial) 1 mg Q2H PRN IVP Agitation 02/13/19 08:45 03/15/19 08:44 02/14/19 05:49 Midazolam HCl 50 mg/Sodium Chloride 100 ml @ 0 mls/hr Q24H IV 02/13/19 15:45 02/20/19 15:44 02/15/19 15:31 Miscellaneous Medication (Insulin Rate Change) 1 ea PRN PRN MISC Per rx protocol 02/11/19 17:15 03/13/19 17:14 02/15/19 04:00 Nitroglycerin (Ntg) 0.4 mg Q5M PRN SL Prn Chest Pain 02/07/19 11:00 03/08/19 17:29 02/08/19 07:42 Ondansetron HCl (Zofran) 4 mg Q6H PRN IVP Nausea & Vomiting 02/07/19 11:15 03/08/19 11:14 02/09/19 00:58 Patient Own Medication (Patient's Own Med) 1 ea BID ORAL 02/07/19 18:00 03/09/19 17:59 02/15/19 09:06 Patient Own Medication (Patient's Own Med) 1 ea Q72H ORAL 02/16/19 09:00 03/15/19 08:59 Patient Own Medication (Patient's Own Med) 2 ea DAILY ORAL 02/08/19 09:00 03/10/19 08:59 02/15/19 08:52 Piperacillin Sod/ Tazobactam Sod 3.375 gm/Sodium Chloride 110 ml @ 27.5 mls/hr Q12HR@0600,1800 IVPB 02/11/19 18:00 02/18/19 17:59 02/15/19 05:34 Polyethylene Glycol (Miralax) 17 gm BEDTIME ORAL 02/08/19 21:00 03/10/19 20:59 02/14/19 20:51 Sennosides (Senokot) 8.6 mg DAILY ORAL 02/13/19 12:00 03/15/19 11:59 02/15/19 08:54 Sodium Bicarbonate 150 ml/Sodium Chloride 1,150 ml @ 75 mls/hr [id number] IV 02/15/19 15:30 03/15/19 15:29 02/15/19 15:33 Trimethoprim/ Sulfamethoxazole 25 ml/Dextrose 575 ml @ 383.333 mls/hr Q12HR@0000,1200 IV 02/11/19 12:00 02/18/19 11:59 02/15/19 12:08 Vancomycin HCl (Vanco rx to dose) 1 ea DAILY PRN MISC . 02/10/19 19:45 03/12/19 19:44 Carlito Nichols MD Feb 15, 2019 18:12
--- NOTE | 2019-02-15 18:45 | NUR ---
NURSE NOTES: Spoke with Nelsy Neuro HADOOP ANALYST. I notified her of the patient's condition and pointed out the swollen sclera of the patient's eyes. She noted that she was concerned about it and reported that she would see if there were eye drops that could be ordered for the patient.
--- NOTE | 2019-02-15 19:29 | NUR ---
NURSE NOTES: Insulin drip stopped at this time. Insulin drip discontinued by physician. Patient will now be on Q4HR accu-check and novolog coverage.
--- NOTE | 2019-02-15 19:47 | NUR ---
HAND-OFF: Report given to TESSA Ramires. Patient blood pressure 146/69, HR 89, SpO2 98%, and RR 25. Patient RASS score -2 at this time on 8mcg/hr versed and 150mcg/hr fentanyl. Patient showing no sign of acute distress. Patient should begin weaning trials tomorrow per Dr Meredith. Endorsed to follow up.
--- NOTE | 2019-02-15 19:48 | NUR ---
NURSE NOTES: Endorsement received from Suze Sawyer RN. Patient sedated, on Versed 8mg/hr and Fentanyl 150mcg/hr to keep RASS -2. Received with eye patch to keep eyes moist. Orally intubated with ET 7.5, 25 lipline. AC 24, Vt 500, Peep 5, 40% FiO2. OGT patent and intact. Placement rechecked per auscultation. On Glucerna 1.5 at 50ml/hr. 20 ml residual noted. With bilateral soft wrists restraints, skin warm and dry to touch with peripheral pulses. With right forearm g 20, left wrist g20, left AC g 20 and left femoral desiree cath with pigtail. On Versed 8mg/hr, fentanyl drip 150mcg/hr and 1/2NS with 3 amps NaHCO3 at 75ml/hr. Simon catheter f 16 draining to urimeter. Noted with yellow urine with sediments. With generalized edema, scrotal edema. Bilateral upper and lower extremities kept elevated. SCDs in place. Head of bed elevated. Bed locked and in low position. Bed alarm on. Call light within reach.
[2019-02-15] MEDS: Atorvastatin 20mg tab ORAL SCH (20:52)
[2019-02-15] MEDS: Dyna-Hex 2% Top Sol 2oz TOPIC SCH (20:52)
[2019-02-15] MEDS: Miralax 17gm pkt ORAL SCH (20:53)
[2019-02-15] MEDS: NovoLOG Insulin Flexpen SUBQ SCH ×2 (20:57)
[2019-02-15] MEDS: Enoxaparin 40mg Inj SUBQ SCH (20:58)
--- NOTE | 2019-02-15 21:00 | NUR ---
NURSE NOTES: No shortness of breath. Blood sugar checked: 196mg/dl. 10 units fixed dose of novolog SC plus 6units novolog SC as per sliding scale given.
--- NOTE | 2019-02-15 22:11 | General Progress Note ---
Assessment/Plan Status: stable Assessment/Plan: 58 y Male admitted to the hospital due to fever, shortness of breath and chest pain. # Multilobar pneumonia in patient with HIV- worse # Acute Hypoxemic respiratory failure # ARDS - improved - Broad sp atbx. Will continue Zosyn, Vancomycin and Azithromycin - Bactrim added for PCP coverage - Droplet precaution -DCed - Oxygen support - ID consult appreciated. AFB, cocci, hystoplasma, legionella, ordered. . - Patient s/p emergent bronchoscopy given florid ARDS - Cont mechanical ventilation, settings per pulmonary - SBT in AM # NSTEMI - EKG with bifascicular block RBB and LAFB, no ST changes. - Trend troponin x3 - ECHO completed with no WMA and preserved EF. Dr. Francois consulted. Consideration for outpatient cath vs possibly myocarditis due to underlying viral infection. No evidence of Takotsubo per TTE. - NGT prn - Pain control with morphine # HIV - Continue HARRT - VL is undetectable per patient report. 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 Date patient seen: Feb 15, 2019 Allergies: Coded Allergies: No Known Allergies (Unverified , 02/05/13) Subjective No acute overnight event, pt remains sedated and intubated in ICU, propofol d/c 2/2 hypertriglycemia, Plan for SBT in AM Objective Last 24 Hour Vital Signs Date Time Temp Pulse Resp B/P (MAP) Pulse Ox O2 Delivery O2 Flow Rate FiO2 02/15/19 21:55 24 40 02/15/19 21:18 77 24 40 02/15/19 20:53 74 147/58 02/15/19 19:04 73 24 99 Mechanical Ventilator 40 02/15/19 19:00 75 24 144/55 (84) 96 02/15/19 18:57 75 24 98 Mechanical Ventilator 40 02/15/19 18:55 75 25 40 02/15/19 18:30 74 24 155/63 (93) 96 02/15/19 18:11 180/66 02/15/19 18:10 180/66 02/15/19 18:00 79 24 162/67 (98) 97 02/15/19 17:30 77 24 151/65 (93) 97 02/15/19 17:00 24 Mechanical Ventilator 40 02/15/19 17:00 24 Mechanical Ventilator 40 02/15/19 17:00 72 24 150/66 (94) 96 02/15/19 16:32 73 24 40 02/15/19 16:30 74 24 162/71 (101) 96 02/15/19 16:00 98.5 81 24 164/69 (100) 98 02/15/19 16:00 81 02/15/19 16:00 24 Mechanical Ventilator 40 02/15/19 16:00 24 Mechanical Ventilator 40 02/15/19 16:00 40 02/15/19 16:00 Mechanical Ventilator Mechanical Ventilator Mechanical Ventilator 02/15/19 15:31 22 Mechanical Ventilator 40 02/15/19 15:30 78 25 165/75 (105) 97 02/15/19 15:00 78 24 150/63 (92) 97 02/15/19 15:00 24 Mechanical Ventilator 40 02/15/19 15:00 24 Mechanical Ventilator 40 02/15/19 14:56 69 24 98 Mechanical Ventilator 40 02/15/19 14:48 73 24 96 Mechanical Ventilator 40 02/15/19 14:48 73 24 40 02/15/19 14:30 75 24 149/73 (98) 97 02/15/19 14:00 24 Mechanical Ventilator 40 02/15/19 14:00 24 Mechanical Ventilator 40 02/15/19 14:00 69 24 143/59 (87) 94 02/15/19 13:30 73 24 143/59 (87) 94 02/15/19 13:01 74 24 40 02/15/19 13:00 23 Mechanical Ventilator 40 02/15/19 13:00 23 Mechanical Ventilator 40 02/15/19 13:00 98.0 82 23 141/59 (86) 95 02/15/19 12:30 83 23 143/59 (87) 96 02/15/19 12:30 24 Mechanical Ventilator 40 02/15/19 12:30 24 Mechanical Ventilator 40 02/15/19 12:09 167/68 02/15/19 12:08 167/68 02/15/19 12:00 40 02/15/19 12:00 81 24 156/74 (101) 96 02/15/19 12:00 Mechanical Ventilator Mechanical Ventilator Mechanical Ventilator 02/15/19 12:00 81 02/15/19 12:00 24 Mechanical Ventilator 40 02/15/19 12:00 24 Mechanical Ventilator 40 02/15/19 11:30 80 24 167/68 (101) 97 02/15/19 11:00 24 Mechanical Ventilator 40 02/15/19 11:00 24 Mechanical Ventilator 40 02/15/19 11:00 73 24 160/72 (101) 96 02/15/19 10:47 78 24 99 Mechanical Ventilator 40 02/15/19 10:37 75 24 96 Mechanical Ventilator 40 02/15/19 10:34 67 24 40 02/15/19 10:30 78 24 159/67 (97) 97 02/15/19 10:00 68 24 155/65 (95) 97 02/15/19 10:00 24 Mechanical Ventilator 40 02/15/19 10:00 24 Mechanical Ventilator 40 02/15/19 09:30 24 Mechanical Ventilator 40 02/15/19 09:30 24 Mechanical Ventilator 40 02/15/19 09:30 74 24 155/63 (93) 98 02/15/19 09:00 98.1 73 24 165/66 (99) 97 02/15/19 09:00 24 Mechanical Ventilator 40 02/15/19 09:00 24 40 02/15/19 08:56 24 Mechanical Ventilator 40 02/15/19 08:56 24 Mechanical Ventilator 40 02/15/19 08:55 24 Mechanical Ventilator 40 02/15/19 08:55 24 Mechanical Ventilator 40 02/15/19 08:54 74 144/57 02/15/19 08:51 70 144/57 02/15/19 08:48 70 22 40 02/15/19 08:30 71 24 145/58 (87) 96 02/15/19 08:00 71 24 144/57 (86) 96 02/15/19 08:00 71 02/15/19 08:00 Mechanical Ventilator Mechanical Ventilator Mechanical Ventilator 02/15/19 08:00 40 02/15/19 08:00 24 Mechanical Ventilator 40 02/15/19 08:00 24 Mechanical Ventilator 40 02/15/19 07:30 73 24 146/60 (88) 97 02/15/19 07:06 70 24 98 Mechanical Ventilator 40 02/15/19 07:00 24 Mechanical Ventilator 40 02/15/19 07:00 24 Mechanical Ventilator 40 02/15/19 07:00 70 24 140/57 (84) 97 02/15/19 06:58 69 24 40 02/15/19 06:55 69 24 97 Mechanical Ventilator 40 02/15/19 06:30 68 24 136/55 (82) 97 02/15/19 06:00 72 24 138/60 (86) 98 02/15/19 06:00 24 Mechanical Ventilator 40 02/15/19 06:00 24 Mechanical Ventilator 40 02/15/19 05:36 146/55 02/15/19 05:35 146/55 02/15/19 05:30 74 24 146/55 (85) 100 02/15/19 05:19 14 Mechanical Ventilator 40 02/15/19 05:02 79 24 40 02/15/19 05:00 79 24 152/64 (93) 97 02/15/19 05:00 24 Mechanical Ventilator 40 02/15/19 05:00 24 Mechanical Ventilator 40 02/15/19 04:30 69 24 146/58 (87) 95 02/15/19 04:00 40 02/15/19 04:00 97.8 69 24 137/57 (83) 95 02/15/19 04:00 24 Mechanical Ventilator 40 02/15/19 04:00 24 Mechanical Ventilator 40 02/15/19 04:00 Mechanical Ventilator Mechanical Ventilator Mechanical Ventilator 02/15/19 04:00 69 02/15/19 03:30 70 24 141/60 (87) 94 02/15/19 03:08 71 24 98 Mechanical Ventilator 40 02/15/19 03:00 68 24 138/58 (84) 98 02/15/19 03:00 24 Mechanical Ventilator 40 02/15/19 03:00 24 Mechanical Ventilator 40 02/15/19 02:54 70 24 97 Mechanical Ventilator 40 02/15/19 02:53 69 24 40 02/15/19 02:30 70 24 133/54 (80) 95 02/15/19 02:00 24 Mechanical Ventilator 40 02/15/19 02:00 24 Mechanical Ventilator 40 02/15/19 02:00 71 24 132/53 (79) 95 02/15/19 01:30 77 24 150/62 (91) 97 02/15/19 01:22 77 24 40 02/15/19 01:00 19 Mechanical Ventilator 40 02/15/19 01:00 19 Mechanical Ventilator 40 02/15/19 01:00 81 19 169/76 (107) 97 02/15/19 00:32 24 Mechanical Ventilator 40 02/15/19 00:30 70 24 144/63 (90) 96 02/15/19 00:00 40 02/15/19 00:00 97.2 71 24 146/63 (90) 96 02/15/19 00:00 71 02/15/19 00:00 24 Mechanical Ventilator 40 02/15/19 00:00 24 Mechanical Ventilator 40 02/15/19 00:00 Mechanical Ventilator Mechanical Ventilator Mechanical Ventilator 02/14/19 23:41 144/58 02/14/19 23:40 144/58 02/14/19 23:38 71 24 99 Mechanical Ventilator 40 02/14/19 23:30 70 24 144/58 (86) 98 02/14/19 23:11 69 24 97 Mechanical Ventilator 40 02/14/19 23:11 69 24 40 02/14/19 23:00 68 24 139/56 (83) 97 02/14/19 23:00 24 Mechanical Ventilator 40 02/14/19 23:00 24 Mechanical Ventilator 40 02/14/19 22:30 68 24 142/56 (84) 97 Intake and Output 02/14/19 02/15/19 19:00 07:00 Intake Total 2118.0 ml 2978.750 ml Output Total 730 ml 1255 ml Balance 1388.0 ml 1723.750 ml Free Water 80 ml 60 ml IV Total 1663.0 ml 2378.750 ml Tube Feeding 315 ml 420 ml Blood Product 60 ml Other 120 ml Output Urine Total 730 ml 1255 ml # Bowel Movements 4 2 Laboratory Tests 02/15/19 04:50: White Blood Count 4.7L, Red Blood Count 2.99L, Hemoglobin 8.2L, Hematocrit 25.1L , Mean Corpuscular Volume 84, Mean Corpuscular Hemoglobin 27.5, Mean Corpuscular Hemoglobin Concent 32.7, Red Cell Distribution Width 17.8H, Platelet Count 205, Mean Platelet Volume 6.2L, Neutrophils (%) (Auto) , Lymphocytes (%) (Auto) , Monocytes (%) (Auto) , Eosinophils (%) (Auto) , Basophils (%) (Auto) , Sodium Level 147H, Potassium Level 5.2H, Chloride Level 114H, Carbon Dioxide Level 24, Anion Gap 9, Blood Urea Nitrogen 66H, Creatinine 2.9H, Estimat Glomerular Filtration Rate 22.4, Glucose Level 204H, Lactic Acid Level 2.00, Uric Acid 5.8, Calcium Level 7.8L, Phosphorus Level 4.4, Magnesium Level 2.6H, Total Bilirubin 0.3, Gamma Glutamyl Transpeptidase 329H, Aspartate Amino Transf (AST/SGOT) 30, Alanine Aminotransferase (ALT/SGPT) 51, Alkaline Phosphatase 153H, Troponin I 2.367H, C-Reactive Protein, Quantitative 3.2H, Pro- B-Type Natriuretic Peptide 5827H, Total Protein 5.5L, Albumin 1.9L, Globulin 3.6 , Albumin/Globulin Ratio 0.5L 02/15/19 06:21: Arterial Blood pH 7.453H, Arterial Blood Partial Pressure CO2 33.3L, Arterial Blood Partial Pressure O2 69.3L, Arterial Blood HCO3 22.8, Arterial Blood Oxygen Saturation 92.3L, Arterial Blood Base Excess -0.8, Benny Test Positive Height (Feet): 6 Height (Inches): 0.00 Weight (Pounds): 264 Objective General Appearance: Intubated, sedated. 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
--- NOTE | 2019-02-15 23:00 | NUR ---
NURSE NOTES: Maintains RASS of -2 with current Versed 8mg/hr and Fentanyl drip 150mcg/hr.
[2019-02-16] VITALS (60 sets, daily range): BP systolic 132–192; BP diastolic 62–122
--- NOTE | 2019-02-16 | NUR ---
NURSE NOTES: SBP 170 mmHg. Due Hydralazine and Isordil given.
[2019-02-16] MEDS: D5W IV SCH ×3 (00:05→23:36)
[2019-02-16] MEDS: TRIMETHOPRIM IV SCH ×3 (00:05→23:36)
[2019-02-16] MEDS: SULFAMETHOXAZOLE IV SCH ×3 (00:05→23:36)
[2019-02-16] MEDS: HydrALAZINE 50mg tab NG SCH ×5 (00:06→23:36)
--- NOTE | 2019-02-16 00:30 | NUR ---
NURSE NOTES: Blood sugar 256mg/dl. 10 units fixed dose of novolog SC and 10 units novolog SC per sliding scale, total of 20units given as per order.
[2019-02-16] MEDS: NovoLOG Insulin Flexpen SUBQ SCH ×14 (00:32→20:43)
[2019-02-16] MEDS: fentaNYL Citrate 2,500 MCG in NS 200 ML IV SCH ×2 (01:10→22:27)
--- NOTE | 2019-02-16 01:35 | NUR ---
NURSE NOTES: Noted that the 1999H blood sugar which was 196mg/dl was automatically copied to the 0100H blood sugar for the Novolog, eMAR corrected, witnessed by another RN.
--- NOTE | 2019-02-16 02:30 | Consultation ---
DATE OF CONSULTATION: 02/15/2019 CHIEF COMPLAINT: Abdominal distention and anemia. HISTORY OF PRESENT ILLNESS: Most of the history is per chart. The patient is intubated in ICU. The patient was admitted through the ER with respiratory distress requiring intubation. The patient has diagnosis of sepsis since admission, possibly secondary to pneumonia. The patient also has a history of HIV. GI consult is requested for evaluation of anemia and abdominal distention. Since admission, the patient has been found to be in acute renal failure requiring emergency dialysis per Dr. Mcdonald. PAST MEDICAL HISTORY: 1. History of HIV. 2. Hypertension. 3. Vertigo. 4. History of headaches. 5. History of diabetes. PAST SURGICAL HISTORY: Unknown. MEDICATIONS: See medication reconciliation list. ALLERGIES: No known drug allergies. FAMILY HISTORY: Noncontributory. REVIEW OF SYSTEMS: Unable to obtain. PHYSICAL EXAMINATION: GENERAL: The patient is in the ICU, intubated, on Versed and insulin drip. VITAL SIGNS: Blood pressure is 139/73, pulse 74, and respirations 20. HEENT: Normocephalic and atraumatic. Mild pale conjunctivae. NECK: Supple. No evidence of obvious lymphadenopathy. CARDIOVASCULAR: Tachycardic. Regular rate. Plus S1, S2. LUNGS: Decreased breath sounds bilaterally and diffusely on a supine exam. ABDOMEN: Distended and tympanic. Bowel sounds are hypoactive. No rebound. No guarding. No peritoneal sign. EXTREMITIES: No cyanosis. No clubbing. The patient has evidence of diffuse anasarca and edema. LABORATORY DATA: Sodium 147, potassium 5.2, BUN is 66, and creatinine is 2.9. White count 4.7, hemoglobin 8.2, hematocrit 25, and platelet count is 205,000. ASSESSMENT AND PLAN: This is a 58-year-old male with respiratory failure, pneumonia, sepsis, and HIV, now with profound anemia and acute renal failure without any overt active evidence of GI bleeding. Plan to be very conservative with this patient and I will hold off on any GI procedures. Currently, he has an NG tube placed and tolerating tube feeding. According to the nurse, last bowel movement was yesterday. the patient has severe constipation. This abnormal distention can be from anasarca and fluid deposition in the abdominal fat. Plan will be to monitor him closely and increase the tube feeding for the goal rate. Continue on bowel regimen that he is on. Follow H and H. Transfuse as needed. Dialysis per Nephrology. Kg Ricketts M.D. DR: HUNTER JOB#: [id number] CC:
[2019-02-16] MEDS: Albuterol/Ipratropium 3ml neb HHN SCH ×6 (03:15→23:28)
--- NOTE | 2019-02-16 03:30 | NUR ---
NURSE NOTES: Patient passed small soft to formed green stool. Collected for stool OB. Also collected urine sample for eosinophil urine. Bed bath, change of linens done.
--- NOTE | 2019-02-16 04:00 | NUR ---
NURSE NOTES: Patient with planned weaning in the morning, versed drip and fentanyl drip titrated.
[2019-02-16] MEDS: HydrALAZINE 25mg tab NG PRN (04:27)
--- NOTE | 2019-02-16 04:30 | NUR ---
NURSE NOTES: Patient's BP still above 160mmHg despite routine BP meds, PRN hydralazine given.
[2019-02-16] MEDS: Midazolam for drip 50 MG in NS 90 ML IV SCH ×3 (05:35→21:17)
[2019-02-16] MEDS: Zosyn 3.375gm q12h **Extended infusion IVPB SCH ×2 (05:47)
[2019-02-16] MEDS: Sodium Bicarbonate 150 ML in 1/2 NS 1000ml 1,000 ML IV SCH (05:47)
--- NOTE | 2019-02-16 06:00 | NUR ---
NURSE NOTES: Versed at 3mg/hr and Fentanyl 70mcg/hr, with RASS -2.
--- NOTE | 2019-02-16 06:01 | NUR ---
NURSE NOTES: BP at 170s mmHg. Due hydralazine and Isordil given
[2019-02-16 06:20] LABS: HEMATOCRIT 27.8 % (42.0-52.0); HEMOGLOBIN 8.9 G/DL (14.2-18.0); MEAN CORPUSCULAR VOLUME 85 FL (80-99); PLATELET COUNT 253 K/UL (150-450); RED BLOOD COUNT 3.26 M/UL (4.70-6.10); RED CELL DISTRIBUTION WIDTH 18.1 % (11.6-14.8); WHITE BLOOD COUNT 7.8 K/UL (4.8-10.8)
--- NOTE | 2019-02-16 06:42 | General Progress Note ---
Assessment/Plan Problem List: (1) ISH (acute kidney injury) ICD Codes: N17.9 - Acute kidney failure, unspecified SNOMED: 46390057 (2) Uncontrolled type 2 diabetes mellitus with chronic kidney disease ICD Codes: E11.22 - Type 2 diabetes mellitus with diabetic chronic kidney disease; E11.65 - Type 2 diabetes mellitus with hyperglycemia SNOMED: 95311514, 992486004, 861413503 (3) HIV disease ICD Codes: B20 - Human immunodeficiency virus [HIV] disease SNOMED: 46020827 (4) Respiratory distress ICD Codes: R06.03 - Acute respiratory distress SNOMED: 766081235 Status: stable Assessment/Plan: - increase Novolog to 10 units every 4 hours - continue Novolog sliding scale resistant scale every 4 hours Subjective ROS Limited/Unobtainable: Yes Allergies: Coded Allergies: No Known Allergies (Unverified , 02/05/13) Subjective events noted remained intubated and sedated in ICU glucose values 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 Item Value Date Time Bedside Blood Glucose 264 mg/dl H 02/16/19 0500 Bedside Blood Glucose 256 mg/dl H 02/16/19 0129 Bedside Blood Glucose 196 mg/dl H 02/15/19 2100 Bedside Blood Glucose 152 mg/dl H 02/15/19 1813 Bedside Blood Glucose 237 mg/dl H 02/15/19 1410 Bedside Blood Glucose 185 mg/dl H 02/15/19 1006 Objective Last 24 Hour Vital Signs Date Time Temp Pulse Resp B/P (MAP) Pulse Ox O2 Delivery O2 Flow Rate FiO2 02/16/19 06:30 84 22 173/76 (108) 97 02/16/19 06:15 86 23 173/73 (106) 100 02/16/19 06:00 24 Mechanical Ventilator 40 02/16/19 06:00 24 Mechanical Ventilator 40 02/16/19 06:00 80 24 161/67 (98) 96 02/16/19 05:48 171/72 02/16/19 05:47 171/72 02/16/19 05:45 77 22 163/70 (101) 95 02/16/19 05:45 24 Mechanical Ventilator 40 02/16/19 05:35 24 Mechanical Ventilator 40 02/16/19 05:35 24 Mechanical Ventilator 40 02/16/19 05:30 24 Mechanical Ventilator 40 6/28/19 05:30 79 24 171/72 (105) 96 02/16/19 05:15 77 23 167/72 (103) 96 02/16/19 05:15 78 24 40 02/16/19 05:15 24 Mechanical Ventilator 40 02/16/19 05:00 79 24 166/73 (104) 95 02/16/19 05:00 24 Mechanical Ventilator 40 02/16/19 05:00 24 Mechanical Ventilator 40 02/16/19 04:45 74 23 160/67 (98) 94 02/16/19 04:30 78 24 166/74 (104) 96 02/16/19 04:30 24 Mechanical Ventilator 40 02/16/19 04:30 24 Mechanical Ventilator 40 02/16/19 04:27 166/73 02/16/19 04:15 80 25 166/73 (104) 96 02/16/19 04:15 24 Mechanical Ventilator 40 02/16/19 04:15 24 Mechanical Ventilator 40 02/16/19 04:00 40 02/16/19 04:00 Mechanical Ventilator Mechanical Ventilator Mechanical Ventilator 02/16/19 04:00 24 Mechanical Ventilator 40 02/16/19 04:00 24 Mechanical Ventilator 40 02/16/19 04:00 98.6 74 24 158/64 (95) 93 02/16/19 04:00 76 02/16/19 03:45 75 24 156/63 (94) 95 02/16/19 03:30 75 15 154/62 (92) 95 02/16/19 03:24 74 24 98 Mechanical Ventilator 40 02/16/19 03:16 75 24 97 Mechanical Ventilator 40 02/16/19 03:15 76 24 161/67 (98) 98 02/16/19 03:15 77 24 40 02/16/19 03:00 76 15 161/66 (97) 96 02/16/19 03:00 24 Mechanical Ventilator 40 02/16/19 03:00 24 Mechanical Ventilator 40 02/16/19 02:45 82 11 166/73 (104) 95 02/16/19 02:31 85 19 176/77 (110) 96 02/16/19 02:00 24 Mechanical Ventilator 40 02/16/19 02:00 24 Mechanical Ventilator 40 02/16/19 02:00 79 24 170/72 (104) 96 02/16/19 01:40 98.4 02/16/19 01:30 84 21 172/80 (110) 97 02/16/19 01:15 79 24 40 02/16/19 01:10 24 Mechanical Ventilator 40 02/16/19 01:00 76 21 164/97 (119) 95 02/16/19 01:00 24 Mechanical Ventilator 40 02/16/19 01:00 24 Mechanical Ventilator 40 02/16/19 00:45 77 23 166/69 (101) 95 02/16/19 00:30 75 23 159/64 (95) 95 02/16/19 00:06 170/66 02/16/19 00:06 170/66 02/16/19 00:05 24 Mechanical Ventilator 40 02/16/19 00:00 98.4 80 23 170/66 (100) 96 02/16/19 00:00 Mechanical Ventilator Mechanical Ventilator Mechanical Ventilator 02/16/19 00:00 24 Mechanical Ventilator 40 02/16/19 00:00 24 Mechanical Ventilator 40 02/16/19 00:00 40 02/16/19 00:00 74 02/15/19 23:30 76 21 168/64 (98) 94 02/15/19 23:04 75 24 98 Mechanical Ventilator 40 02/15/19 23:00 75 21 160/62 (94) 96 02/15/19 23:00 24 Mechanical Ventilator 40 02/15/19 23:00 24 Mechanical Ventilator 40 02/15/19 22:57 74 24 97 Mechanical Ventilator 40 02/15/19 22:56 76 24 40 02/15/19 22:30 75 21 160/62 (94) 96 02/15/19 22:00 74 23 167/70 (102) 96 02/15/19 22:00 24 Mechanical Ventilator 40 02/15/19 22:00 24 Mechanical Ventilator 40 02/15/19 21:55 24 40 02/15/19 21:30 74 24 167/70 (102) 96 02/15/19 21:18 77 24 40 02/15/19 21:00 24 Mechanical Ventilator 40 02/15/19 21:00 24 Mechanical Ventilator 40 02/15/19 21:00 77 24 164/71 (102) 96 02/15/19 20:53 74 147/58 02/15/19 20:30 74 24 147/58 (87) 95 02/15/19 20:00 75 02/15/19 20:00 40 02/15/19 20:00 24 Mechanical Ventilator 40 02/15/19 20:00 24 Mechanical Ventilator 40 02/15/19 20:00 Mechanical Ventilator Mechanical Ventilator Mechanical Ventilator 02/15/19 20:00 74 24 145/59 (87) 95 02/15/19 19:30 98.5 79 24 153/65 (94) 96 02/15/19 19:04 73 24 99 Mechanical Ventilator 40 02/15/19 19:00 75 24 144/55 (84) 96 02/15/19 19:00 24 Mechanical Ventilator 40 02/15/19 19:00 24 Mechanical Ventilator 40 02/15/19 18:57 75 24 98 Mechanical Ventilator 40 02/15/19 18:55 75 25 40 02/15/19 18:30 74 24 155/63 (93) 96 02/15/19 18:11 180/66 02/15/19 18:10 180/66 02/15/19 18:00 79 24 162/67 (98) 97 02/15/19 17:30 77 24 151/65 (93) 97 02/15/19 17:00 24 Mechanical Ventilator 40 02/15/19 17:00 24 Mechanical Ventilator 40 02/15/19 17:00 72 24 150/66 (94) 96 02/15/19 16:32 73 24 40 02/15/19 16:30 74 24 162/71 (101) 96 02/15/19 16:00 98.5 81 24 164/69 (100) 98 02/15/19 16:00 81 02/15/19 16:00 24 Mechanical Ventilator 40 02/15/19 16:00 24 Mechanical Ventilator 40 02/15/19 16:00 40 02/15/19 16:00 Mechanical Ventilator Mechanical Ventilator Mechanical Ventilator 02/15/19 15:31 22 Mechanical Ventilator 40 02/15/19 15:30 78 25 165/75 (105) 97 02/15/19 15:00 78 24 150/63 (92) 97 02/15/19 15:00 24 Mechanical Ventilator 40 02/15/19 15:00 24 Mechanical Ventilator 40 02/15/19 14:56 69 24 98 Mechanical Ventilator 40 02/15/19 14:48 73 24 96 Mechanical Ventilator 40 02/15/19 14:48 73 24 40 02/15/19 14:30 75 24 149/73 (98) 97 02/15/19 14:00 24 Mechanical Ventilator 40 02/15/19 14:00 24 Mechanical Ventilator 40 02/15/19 14:00 69 24 143/59 (87) 94 02/15/19 13:30 73 24 143/59 (87) 94 02/15/19 13:01 74 24 40 02/15/19 13:00 23 Mechanical Ventilator 40 02/15/19 13:00 23 Mechanical Ventilator 40 02/15/19 13:00 98.0 82 23 141/59 (86) 95 02/15/19 12:30 83 23 143/59 (87) 96 02/15/19 12:30 24 Mechanical Ventilator 40 02/15/19 12:30 24 Mechanical Ventilator 40 02/15/19 12:09 167/68 02/15/19 12:08 167/68 02/15/19 12:00 40 02/15/19 12:00 81 24 156/74 (101) 96 02/15/19 12:00 Mechanical Ventilator Mechanical Ventilator Mechanical Ventilator 02/15/19 12:00 81 02/15/19 12:00 24 Mechanical Ventilator 40 02/15/19 12:00 24 Mechanical Ventilator 40 02/15/19 11:30 80 24 167/68 (101) 97 02/15/19 11:00 24 Mechanical Ventilator 40 02/15/19 11:00 24 Mechanical Ventilator 40 02/15/19 11:00 73 24 160/72 (101) 96 02/15/19 10:47 78 24 99 Mechanical Ventilator 40 02/15/19 10:37 75 24 96 Mechanical Ventilator 40 02/15/19 10:34 67 24 40 02/15/19 10:30 78 24 159/67 (97) 97 02/15/19 10:00 68 24 155/65 (95) 97 02/15/19 10:00 24 Mechanical Ventilator 40 02/15/19 10:00 24 Mechanical Ventilator 40 02/15/19 09:30 24 Mechanical Ventilator 40 02/15/19 09:30 24 Mechanical Ventilator 40 02/15/19 09:30 74 24 155/63 (93) 98 02/15/19 09:00 98.1 73 24 165/66 (99) 97 02/15/19 09:00 24 Mechanical Ventilator 40 02/15/19 09:00 24 40 02/15/19 08:56 24 Mechanical Ventilator 40 02/15/19 08:56 24 Mechanical Ventilator 40 02/15/19 08:55 24 Mechanical Ventilator 40 02/15/19 08:55 24 Mechanical Ventilator 40 02/15/19 08:54 74 144/57 02/15/19 08:51 70 144/57 02/15/19 08:48 70 22 40 02/15/19 08:30 71 24 145/58 (87) 96 02/15/19 08:00 71 24 144/57 (86) 96 02/15/19 08:00 71 02/15/19 08:00 Mechanical Ventilator Mechanical Ventilator Mechanical Ventilator 02/15/19 08:00 40 02/15/19 08:00 24 Mechanical Ventilator 40 02/15/19 08:00 24 Mechanical Ventilator 40 02/15/19 07:30 73 24 146/60 (88) 97 02/15/19 07:06 70 24 98 Mechanical Ventilator 40 02/15/19 07:00 24 Mechanical Ventilator 40 02/15/19 07:00 24 Mechanical Ventilator 40 02/15/19 07:00 70 24 140/57 (84) 97 02/15/19 06:58 69 24 40 02/15/19 06:55 69 24 97 Mechanical Ventilator 40 Intake and Output 02/15/19 02/16/19 19:00 07:00 Intake Total 2972.750 ml 2557.500 ml Output Total 1195 ml 725 ml Balance 1777.750 ml 1832.500 ml Free Water 300 ml IV Total 2177.750 ml 1837.500 ml Tube Feeding 495 ml 600 ml Other 120 ml Output Urine Total 1195 ml 725 ml # Bowel Movements 2 1 Laboratory Tests 02/16/19 03:30: Stool Occult Blood [Pending] 02/16/19 05:05: White Blood Count 7.8#, Red Blood Count 3.26L, Hemoglobin 8.9L, Hematocrit 27.8L , Mean Corpuscular Volume 85, Mean Corpuscular Hemoglobin 27.5, Mean Corpuscular Hemoglobin Concent 32.1, Red Cell Distribution Width 18.1H, Platelet Count 253, Mean Platelet Volume 6.4L, Neutrophils (%) (Auto) , Lymphocytes (%) (Auto) , Monocytes (%) (Auto) , Eosinophils (%) (Auto) , Basophils (%) (Auto) , Sodium Level [Pending], Potassium Level [Pending], Chloride Level [Pending], Carbon Dioxide Level [Pending], Blood Urea Nitrogen [ Pending], Creatinine [Pending], Estimat Glomerular Filtration Rate [Pending], Glucose Level [Pending], Uric Acid [Pending], Calcium Level [Pending], Phosphorus Level [Pending], Magnesium Level [Pending], Total Bilirubin [Pending] , Aspartate Amino Transf (AST/SGOT) [Pending], Alanine Aminotransferase (ALT/ SGPT) [Pending], Alkaline Phosphatase [Pending], C-Reactive Protein, Quantitative [Pending], Pro-B-Type Natriuretic Peptide [Pending], Total Protein [Pending], Albumin [Pending], Globulin [Pending], Random Vancomycin Level [ Pending] Height (Feet): 6 Height (Inches): 0.00 Weight (Pounds): 260 General Appearance: severe distress EENT: other - ETT Neck: normal alignment Cardiovascular: tachycardia Respiratory/Chest: decreased breath sounds Abdomen: normal bowel sounds Pelvis: normal external exam Edema: 2+ Arm (L), 2+ Arm (R), 2+ Leg (L), 2+ Leg (R), 2+ Pedal (L), 2+ Pedal ( R), 2+ Generalized Objective Current Medications Medications (Trade) Dose Ordered Sig/Marquis Route PRN Reason Start Time Stop Time Status Last Admin Dose Admin Acetaminophen (Tylenol) 650 mg Q4H PRN ORAL Mild Pain (Pain Scale 1-3) 02/07/19 11:15 03/08/19 17:29 02/07/19 23:01 Acetaminophen/ Butalbital/ Caffeine (Fioricet) 1 tab Q8H PRN ORAL For Headache 02/08/19 17:15 03/10/19 17:14 Albuterol/ Ipratropium (Albuterol/ Ipratropium) 3 ml Q4HRT HHN 02/14/19 23:00 02/19/19 22:59 02/16/19 03:15 Amlodipine Besylate (Norvasc) 10 mg DAILY NG 02/15/19 09:00 03/14/19 15:59 02/15/19 08:54 Aspirin (Ecotrin) 81 mg DAILY ORAL 02/08/19 09:00 03/09/19 08:59 02/15/19 08:54 Atorvastatin Calcium (Lipitor) 40 mg QHS ORAL 02/08/19 21:00 03/10/19 20:59 02/15/19 20:52 Bisacodyl (Dulcolax) 5 mg DAILYPRN PRN ORAL Constipation 02/08/19 17:15 03/10/19 17:14 02/13/19 20:34 Chlorhexidine Gluconate (Jessy-Hex 2%) 1 applic DAILY@2000 TOPIC 02/13/19 20:00 03/15/19 19:59 02/15/19 20:52 Dextrose (Dextrose 50%) 25 ml Q30M PRN IV Hypoglycemia 02/15/19 18:15 03/17/19 18:14 Dextrose (Dextrose 50%) 50 ml Q30M PRN IV Hypoglycemia 02/15/19 18:15 03/17/19 18:14 Docusate Sodium (Colace) 100 mg TID GT 02/12/19 18:00 03/12/19 08:59 02/15/19 18:10 Enoxaparin Sodium (Lovenox) 40 mg Q24H SUBQ 02/07/19 21:00 03/08/19 20:59 02/15/19 20:58 Fentanyl Citrate 2500 mcg/Sodium Chloride 250 ml @ 0 mls/hr Q24H IV 02/13/19 15:45 02/20/19 15:44 02/16/19 01:10 Fluconazole/ Sodium Chloride 100 ml @ 100 mls/hr Q24H IV 02/14/19 18:00 02/21/19 17:59 02/15/19 18:09 Guaifenesin (Mucinex ER) 600 mg TWICE A DAY ORAL 02/07/19 18:00 03/09/19 08:59 02/15/19 18:11 Hydralazine HCl (Apresoline) 25 mg Q4H PRN NG SBP > 160mmHg 02/12/19 16:00 03/08/19 11:14 02/16/19 04:27 Hydralazine HCl (Apresoline) 50 mg Q6HR NG 02/14/19 00:00 03/14/19 17:59 02/16/19 05:48 Insulin Aspart (NovoLOG) EVERY 4 HOURS SUBQ 02/15/19 21:00 03/17/19 20:59 02/16/19 04:30 Insulin Aspart (NovoLOG) 10 units EVERY 4 HOURS SUBQ 02/15/19 21:00 03/17/19 20:59 02/16/19 04:29 Isosorbide Dinitrate (Isordil) 20 mg Q6HR NG 02/15/19 12:00 03/15/19 12:59 02/16/19 05:47 Lansoprazole (Prevacid) 30 mg BID NG 02/12/19 18:00 03/14/19 17:59 02/15/19 18:10 Methylprednisolone Sodium Succinate (Solu-MEDROL) 20 mg EVERY 12 HOURS IVP 02/15/19 21:00 03/12/19 20:59 02/15/19 20:52 Metoprolol Tartrate (Lopressor) 100 mg Q12HR ORAL 02/07/19 21:00 03/08/19 20:59 02/15/19 20:53 Midazolam HCl (Versed 2mg/2ml vial) 1 mg Q2H PRN IVP Agitation 02/13/19 08:45 03/15/19 08:44 02/14/19 05:49 Midazolam HCl 50 mg/Sodium Chloride 100 ml @ 0 mls/hr Q24H IV 02/13/19 15:45 02/20/19 15:44 02/16/19 05:35 Nitroglycerin (Ntg) 0.4 mg Q5M PRN SL Prn Chest Pain 02/07/19 11:00 03/08/19 17:29 02/08/19 07:42 Ondansetron HCl (Zofran) 4 mg Q6H PRN IVP Nausea & Vomiting 02/07/19 11:15 03/08/19 11:14 02/09/19 00:58 Patient Own Medication (Patient's Own Med) 1 ea BID ORAL 02/07/19 18:00 03/09/19 17:59 02/15/19 18:11 Patient Own Medication (Patient's Own Med) 1 ea Q72H ORAL 02/16/19 09:00 03/15/19 08:59 Patient Own Medication (Patient's Own Med) 2 ea DAILY ORAL 02/08/19 09:00 03/10/19 08:59 02/15/19 08:52 Piperacillin Sod/ Tazobactam Sod 3.375 gm/Sodium Chloride 110 ml @ 27.5 mls/hr Q12HR@0600,1800 IVPB 02/11/19 18:00 02/18/19 17:59 02/16/19 05:47 Polyethylene Glycol (Miralax) 17 gm BEDTIME ORAL 02/08/19 21:00 03/10/19 20:59 02/15/19 20:53 Sennosides (Senokot) 8.6 mg DAILY ORAL 02/13/19 12:00 03/15/19 11:59 02/15/19 08:54 Sodium Bicarbonate 150 ml/Sodium Chloride 1,150 ml @ 75 mls/hr [id number] IV 02/15/19 15:30 03/15/19 15:29 02/16/19 05:47 Trimethoprim/ Sulfamethoxazole 25 ml/Dextrose 575 ml @ 383.333 mls/hr Q12HR@0000,1200 IV 02/11/19 12:00 02/18/19 11:59 02/16/19 00:05 Vancomycin HCl (Vanco rx to dose) 1 ea DAILY PRN MISC . 02/10/19 19:45 03/12/19 19:44 Carlito Nichols MD Feb 16, 2019 06:42
[2019-02-16 06:56] LABS: ALANINE AMINOTRANSFERASE 51 U/L (12-78); ALBUMIN/GLOBULIN RATIO 0.5 (1.0-2.7); ALKALINE PHOSPHATASE 157 U/L (46-116); ANION GAP 6 mmol/L (5-15); ASPARTATE AMINO TRANSFERASE 32 U/L (15-37); BILIRUBIN,TOTAL 0.2 MG/DL (0.2-1.0); BLOOD UREA NITROGEN 71 mg/dL (7-18); CALCIUM 7.8 MG/DL (8.5-10.1); CARBON DIOXIDE 28 MMOL/L (21-32); CHLORIDE 114 MMOL/L (98-107); CREATININE 2.6 MG/DL (0.55-1.30); POTASSIUM 5.8 MMOL/L (3.5-5.1); SODIUM 148 MMOL/L (136-145)
[2019-02-16 07:03] LABS: PHOSPHORUS 4.6 MG/DL (2.5-4.9)
--- NOTE | 2019-02-16 07:30 | NUR ---
HAND-OFF: Report given to annamaria Olea.
--- NOTE | 2019-02-16 07:30 | NUR ---
RESPIRATORY NOTE: Received patient on ordered vent settings. Airway is patent and secured. Suctioned patient PRN. Vent alarms are on and audible. Vent is plugged into red outlet. Will monitor patient progress.
[2019-02-16] MEDS ORDERED: Sodium Polystyrene Sulfonate 15gm Powder NG SCH (08:00)
--- NOTE | 2019-02-16 08:02 | NUR ---
NURSE NOTES: Patient received from TSESA Ramires. Patient awake and sedation decrease for weaning. Bilateral eyes patches to prevent dryness and noted with generalize edema. Afebrile at this time and orally intubated ETT 7.5/25 lip line AC 24 VT 500 FiO2 40% Peep 5. Patient noted with generalize edema.elevated extremities with pillows.Femoral line on the left running Versed 3mg/hr and Fentanyl 70mcg/hr.OGT placement checked and intact running Glucerna 1.5 at 50ml/hr, on hold for weaning.No residual at this time. HOB elevated at 35 degree to prevent aspiration.Right forearm 20G,left wrist 20G, left AC 20 G all peripheral line, patent with no s/s infiltration. Left femoral desiree cath with pigtail with dressing clean dry and intact. Simon catheter in place draining well yellow straw urine. Bilateral upper and lower extremities kept elevated. Oral care done,suctioned as tolerated, turned and repositioned.Kept clean dry and comfortable.Will continue to monitor. Addendum: 02/16/19 at 1920 by Emmie George RN seen by Dr Ramsey will follow up with new orders
--- NOTE | 2019-02-16 08:55 | Pulmonolgy Critical Care Note ---
Critical Care - Asmt/Plan Problems: (1) Endotracheally intubated (2) Acute hypoxemic respiratory failure (3) Pneumonia (4) NSTEMI (non-ST elevated myocardial infarction) (5) AIDS (6) HIV disease (7) Hypertension (8) MDD (major depressive disorder), recurrent episode, moderate (9) Anemia (10) CKD (chronic kidney disease) (11) History of stroke (12) Diabetes (13) Anxiety (14) Malignant hypertension Assessment/Plan: VDRF ARDS Acute respiratory failure B pulmonary infiltrates, ? multilobar CAP vs atypical infection vs other ? 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, 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, 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, ID, GI Discussed with: nurses, consultants Critical Care - Objective Last 24 Hour Vital Signs Date Time Temp Pulse Resp B/P (MAP) Pulse Ox O2 Delivery O2 Flow Rate FiO2 02/16/19 08:15 100 02/16/19 08:00 113 19 192/110 (137) 88 02/16/19 08:00 40 02/16/19 08:00 Mechanical Ventilator Mechanical Ventilator Mechanical Ventilator 02/16/19 08:00 110 02/16/19 07:40 72 24 98 Mechanical Ventilator 40 02/16/19 07:30 76 24 40 45 02/16/19 07:30 116 22 192/110 (137) 97 02/16/19 07:30 71 24 97 Mechanical Ventilator 40 02/16/19 07:20 40 02/16/19 07:00 40 02/16/19 07:00 98.5 110 24 162/122 (135) 93 02/16/19 06:30 84 22 173/76 (108) 97 02/16/19 06:15 86 23 173/73 (106) 100 02/16/19 06:00 24 Mechanical Ventilator 40 02/16/19 06:00 24 Mechanical Ventilator 40 02/16/19 06:00 80 24 161/67 (98) 96 02/16/19 05:48 171/72 02/16/19 05:47 171/72 02/16/19 05:45 77 22 163/70 (101) 95 02/16/19 05:45 24 Mechanical Ventilator 40 02/16/19 05:35 24 Mechanical Ventilator 40 02/16/19 05:35 24 Mechanical Ventilator 40 02/16/19 05:30 24 Mechanical Ventilator 40 02/16/19 05:30 79 24 171/72 (105) 96 02/16/19 05:15 77 23 167/72 (103) 96 02/16/19 05:15 78 24 40 02/16/19 05:15 24 Mechanical Ventilator 40 02/16/19 05:00 79 24 166/73 (104) 95 02/16/19 05:00 24 Mechanical Ventilator 40 02/16/19 05:00 24 Mechanical Ventilator 40 02/16/19 04:45 74 23 160/67 (98) 94 02/16/19 04:30 78 24 166/74 (104) 96 02/16/19 04:30 24 Mechanical Ventilator 40 02/16/19 04:30 24 Mechanical Ventilator 40 02/16/19 04:27 166/73 02/16/19 04:15 80 25 166/73 (104) 96 02/16/19 04:15 24 Mechanical Ventilator 40 02/16/19 04:15 24 Mechanical Ventilator 40 02/16/19 04:00 40 02/16/19 04:00 Mechanical Ventilator Mechanical Ventilator Mechanical Ventilator 02/16/19 04:00 24 Mechanical Ventilator 40 02/16/19 04:00 24 Mechanical Ventilator 40 02/16/19 04:00 98.6 74 24 158/64 (95) 93 02/16/19 04:00 76 02/16/19 03:45 75 24 156/63 (94) 95 02/16/19 03:30 75 15 154/62 (92) 95 02/16/19 03:24 74 24 98 Mechanical Ventilator 40 02/16/19 03:16 75 24 97 Mechanical Ventilator 40 02/16/19 03:15 76 24 161/67 (98) 98 02/16/19 03:15 77 24 40 02/16/19 03:00 76 15 161/66 (97) 96 02/16/19 03:00 24 Mechanical Ventilator 40 02/16/19 03:00 24 Mechanical Ventilator 40 02/16/19 02:45 82 11 166/73 (104) 95 02/16/19 02:31 85 19 176/77 (110) 96 02/16/19 02:00 24 Mechanical Ventilator 40 02/16/19 02:00 24 Mechanical Ventilator 40 02/16/19 02:00 79 24 170/72 (104) 96 02/16/19 01:40 98.4 02/16/19 01:30 84 21 172/80 (110) 97 02/16/19 01:15 79 24 40 02/16/19 01:10 24 Mechanical Ventilator 40 02/16/19 01:00 76 21 164/97 (119) 95 02/16/19 01:00 24 Mechanical Ventilator 40 02/16/19 01:00 24 Mechanical Ventilator 40 02/16/19 00:45 77 23 166/69 (101) 95 02/16/19 00:30 75 23 159/64 (95) 95 02/16/19 00:06 170/66 02/16/19 00:06 170/66 02/16/19 00:05 24 Mechanical Ventilator 40 02/16/19 00:00 98.4 80 23 170/66 (100) 96 02/16/19 00:00 Mechanical Ventilator Mechanical Ventilator Mechanical Ventilator 02/16/19 00:00 24 Mechanical Ventilator 40 02/16/19 00:00 24 Mechanical Ventilator 40 02/16/19 00:00 40 02/16/19 00:00 74 02/15/19 23:30 76 21 168/64 (98) 94 02/15/19 23:04 75 24 98 Mechanical Ventilator 40 02/15/19 23:00 75 21 160/62 (94) 96 02/15/19 23:00 24 Mechanical Ventilator 40 02/15/19 23:00 24 Mechanical Ventilator 40 02/15/19 22:57 74 24 97 Mechanical Ventilator 40 02/15/19 22:56 76 24 40 02/15/19 22:30 75 21 160/62 (94) 96 02/15/19 22:00 74 23 167/70 (102) 96 02/15/19 22:00 24 Mechanical Ventilator 40 02/15/19 22:00 24 Mechanical Ventilator 40 02/15/19 21:55 24 40 02/15/19 21:30 74 24 167/70 (102) 96 02/15/19 21:18 77 24 40 02/15/19 21:00 24 Mechanical Ventilator 40 02/15/19 21:00 24 Mechanical Ventilator 40 02/15/19 21:00 77 24 164/71 (102) 96 02/15/19 20:53 74 147/58 02/15/19 20:30 74 24 147/58 (87) 95 02/15/19 20:00 75 02/15/19 20:00 40 02/15/19 20:00 24 Mechanical Ventilator 40 02/15/19 20:00 24 Mechanical Ventilator 40 02/15/19 20:00 Mechanical Ventilator Mechanical Ventilator Mechanical Ventilator 02/15/19 20:00 74 24 145/59 (87) 95 02/15/19 19:30 98.5 79 24 153/65 (94) 96 02/15/19 19:04 73 24 99 Mechanical Ventilator 40 02/15/19 19:00 75 24 144/55 (84) 96 02/15/19 19:00 24 Mechanical Ventilator 40 02/15/19 19:00 24 Mechanical Ventilator 40 02/15/19 18:57 75 24 98 Mechanical Ventilator 40 02/15/19 18:55 75 25 40 02/15/19 18:30 74 24 155/63 (93) 96 02/15/19 18:11 180/66 02/15/19 18:10 180/66 02/15/19 18:00 79 24 162/67 (98) 97 02/15/19 17:30 77 24 151/65 (93) 97 02/15/19 17:00 24 Mechanical Ventilator 40 02/15/19 17:00 24 Mechanical Ventilator 40 02/15/19 17:00 72 24 150/66 (94) 96 02/15/19 16:32 73 24 40 02/15/19 16:30 74 24 162/71 (101) 96 02/15/19 16:00 98.5 81 24 164/69 (100) 98 02/15/19 16:00 81 02/15/19 16:00 24 Mechanical Ventilator 40 02/15/19 16:00 24 Mechanical Ventilator 40 02/15/19 16:00 40 02/15/19 16:00 Mechanical Ventilator Mechanical Ventilator Mechanical Ventilator 02/15/19 15:31 22 Mechanical Ventilator 40 02/15/19 15:30 78 25 165/75 (105) 97 02/15/19 15:00 78 24 150/63 (92) 97 02/15/19 15:00 24 Mechanical Ventilator 40 02/15/19 15:00 24 Mechanical Ventilator 40 02/15/19 14:56 69 24 98 Mechanical Ventilator 40 02/15/19 14:48 73 24 96 Mechanical Ventilator 40 02/15/19 14:48 73 24 40 02/15/19 14:30 75 24 149/73 (98) 97 02/15/19 14:00 24 Mechanical Ventilator 40 02/15/19 14:00 24 Mechanical Ventilator 40 02/15/19 14:00 69 24 143/59 (87) 94 02/15/19 13:30 73 24 143/59 (87) 94 02/15/19 13:01 74 24 40 02/15/19 13:00 23 Mechanical Ventilator 40 02/15/19 13:00 23 Mechanical Ventilator 40 02/15/19 13:00 98.0 82 23 141/59 (86) 95 02/15/19 12:30 83 23 143/59 (87) 96 02/15/19 12:30 24 Mechanical Ventilator 40 02/15/19 12:30 24 Mechanical Ventilator 40 02/15/19 12:09 167/68 02/15/19 12:08 167/68 02/15/19 12:00 40 02/15/19 12:00 81 24 156/74 (101) 96 02/15/19 12:00 Mechanical Ventilator Mechanical Ventilator Mechanical Ventilator 02/15/19 12:00 81 02/15/19 12:00 24 Mechanical Ventilator 40 02/15/19 12:00 24 Mechanical Ventilator 40 02/15/19 11:30 80 24 167/68 (101) 97 02/15/19 11:00 24 Mechanical Ventilator 40 02/15/19 11:00 24 Mechanical Ventilator 40 02/15/19 11:00 73 24 160/72 (101) 96 02/15/19 10:47 78 24 99 Mechanical Ventilator 40 02/15/19 10:37 75 24 96 Mechanical Ventilator 40 02/15/19 10:34 67 24 40 02/15/19 10:30 78 24 159/67 (97) 97 02/15/19 10:00 68 24 155/65 (95) 97 02/15/19 10:00 24 Mechanical Ventilator 40 02/15/19 10:00 24 Mechanical Ventilator 40 02/15/19 09:30 24 Mechanical Ventilator 40 02/15/19 09:30 24 Mechanical Ventilator 40 02/15/19 09:30 74 24 155/63 (93) 98 02/15/19 09:00 98.1 73 24 165/66 (99) 97 02/15/19 09:00 24 Mechanical Ventilator 40 02/15/19 09:00 24 40 02/15/19 08:56 24 Mechanical Ventilator 40 02/15/19 08:56 24 Mechanical Ventilator 40 02/15/19 08:55 24 Mechanical Ventilator 40 02/15/19 08:55 24 Mechanical Ventilator 40 02/15/19 08:54 74 144/57 Status: obtunded Condition: critical HEENT: atraumatic, normocephalic, other - ETT OGT Lungs: rales Heart: HR/BP stable Abdomen: soft, non-tender, active bowel sounds Extremities: edema - 2+ Accucheck: 226 Blood Sugars: BS not controlled Critical Care - Subjective ROS Limited/Unobtainable: Yes ICU Day: 11 Intubation Day: 9 Interval Events: Failed SBT, no sig secretions, high peak pressures 7.24/59/63/ Condition: critical IV Access: central, peripheral EKG Rhythm: Sinus Rhythm FI02: 100 Vent Support Breath Rate: 24 Vent Support Mode: AC Vent Tidal Volume: 500 Sputum Amount: Scant PEEP: 5.0 PIP: 37 Fluids: D5W Drips: Versed, Fent Tube Feeding Amount: 50 I&O: Intake and Output 02/15/19 02/16/19 19:00 07:00 Intake Total 2972.750 ml 2667.500 ml Output Total 1195 ml 765 ml Balance 1777.750 ml 1902.500 ml Free Water 300 ml 60 ml IV Total 2177.750 ml 1837.500 ml Tube Feeding 495 ml 650 ml Other 120 ml Output Urine Total 1195 ml 765 ml # Bowel Movements 2 2 Subjective: Sedated on fent/versed ET-Tube: 7.5 ET Position: 25 Labs: Laboratory Tests Test 02/16/19 03:30 02/16/19 05:05 02/16/19 08:08 Stool Occult Blood Pending White Blood Count 7.8 K/UL (4.8-10.8) # Red Blood Count 3.26 M/UL (4.70-6.10) L Hemoglobin 8.9 G/DL (14.2-18.0) L Hematocrit 27.8 % (42.0-52.0) L Mean Corpuscular Volume 85 FL (80-99) Mean Corpuscular Hemoglobin 27.5 PG (27.0-31.0) Mean Corpuscular Hemoglobin Concent 32.1 G/DL (32.0-36.0) Red Cell Distribution Width 18.1 % (11.6-14.8) H Platelet Count 253 K/UL (150-450) Mean Platelet Volume 6.4 FL (6.5-10.1) L Neutrophils (%) (Auto) % (45.0-75.0) Lymphocytes (%) (Auto) % (20.0-45.0) Monocytes (%) (Auto) % (1.0-10.0) Eosinophils (%) (Auto) % (0.0-3.0) Basophils (%) (Auto) % (0.0-2.0) Sodium Level 148 MMOL/L (136-145) H Potassium Level 5.8 MMOL/L (3.5-5.1) H Chloride Level 114 MMOL/L (98-107) H Carbon Dioxide Level 28 MMOL/L (21-32) Anion Gap 6 mmol/L (5-15) Blood Urea Nitrogen 71 mg/dL (7-18) H Creatinine 2.6 MG/DL (0.55-1.30) H Estimat Glomerular Filtration Rate 25.4 mL/min (>60) Glucose Level 269 MG/DL (74-106) H Uric Acid 4.8 MG/DL (2.6-7.2) Calcium Level 7.8 MG/DL (8.5-10.1) L Phosphorus Level 4.6 MG/DL (2.5-4.9) Magnesium Level 2.9 MG/DL (1.8-2.4) H Total Bilirubin 0.2 MG/DL (0.2-1.0) Aspartate Amino Transf (AST/SGOT) 32 U/L (15-37) Alanine Aminotransferase (ALT/SGPT) 51 U/L (12-78) Alkaline Phosphatase 157 U/L (46-116) H C-Reactive Protein, Quantitative 2.2 mg/dL (0.00-0.90) H Pro-B-Type Natriuretic Peptide 5575 pg/mL (0-125) H Total Protein 5.7 G/DL (6.4-8.2) L Albumin 2.0 G/DL (3.4-5.0) L Globulin 3.7 g/dL Albumin/Globulin Ratio 0.5 (1.0-2.7) L Random Vancomycin Level 11.4 ug/mL Arterial Blood pH 7.244 (7.350-7.450) Arterial Blood Partial Pressure CO2 59.1 mmHg (35.0-45.0) *H Arterial Blood Partial Pressure O2 63.4 mmHg (75.0-100.0) L Arterial Blood HCO3 25.0 mmol/L (22.0-26.0) Arterial Blood Oxygen Saturation 87.0 % (95-100) *L Arterial Blood Base Excess -3.0 (-2-2) L Benny Test Positive Brett Meredith MD Feb 16, 2019 08:55
[2019-02-16] MEDS ORDERED: TENOFOVIR DISOPROXIL FUMARATE 300 MG ORAL SCH (09:00)
[2019-02-16] MEDS: Docusate 100mg/10ml Liq GT SCH ×3 (09:32→17:29)
[2019-02-16] MEDS: Solu-MEDROL 40mg Inj IVP SCH ×2 (09:33→20:41)
[2019-02-16] MEDS: guaiFENesin ER 600mg tab ORAL SCH ×2 (09:33→17:29)
[2019-02-16] MEDS: Aspirin EC 81mg tab ORAL SCH (09:33)
[2019-02-16] MEDS: Sennosides 8.6mg tab ORAL SCH (09:34)
--- NOTE | 2019-02-16 09:34 | NUR ---
RADIOLOGY DEPT., CHEST X-RAY DONE.-P.DYE
[2019-02-16] MEDS: Vancomycin 1.25gm Premix IVPB SCH ×2 (09:35→09:38)
--- NOTE | 2019-02-16 09:35 | NUR ---
NURSE NOTES: Patient seen by Dr Meredith and Dr Leonard,will follow up with new orders
--- NOTE | 2019-02-16 09:38 | Nephrology Progress Note ---
Assessment/Plan Problem List: (1) ISH (acute kidney injury) Assessment: Cr lowering (2) HIV (human immunodeficiency virus infection) (3) NSTEMI (non-ST elevated myocardial infarction) Assessment: troponin decreasing (4) Hypoxia (5) Anemia (6) Diabetes Assessment Acute Renal failure- Cr leveling- Urine out put is good Acidosis improved Acute respiratory failure- Require intubation and Mechanical Ventilation- Anemia- Elevated troponin / KS HTN DM HIV Antibody + Plan Lasix trial- Kayexelate- IV D5W Off Bicitra UA and urine studies Avoid Nephrotoxics as possible Monitor renal parameters keep BP and BS in check Per orders No HD at this time Kidney RADHA noted adjust BP meds add Isordil Subjective ROS Limited/Unobtainable: Yes Objective Objective Last 24 Hour Vital Signs Date Time Temp Pulse Resp B/P (MAP) Pulse Ox O2 Delivery O2 Flow Rate FiO2 02/16/19 08:15 100 02/16/19 08:00 113 19 192/110 (137) 88 02/16/19 08:00 40 02/16/19 08:00 Mechanical Ventilator Mechanical Ventilator Mechanical Ventilator 02/16/19 08:00 110 02/16/19 07:40 72 24 98 Mechanical Ventilator 40 02/16/19 07:30 76 24 40 45 02/16/19 07:30 116 22 192/110 (137) 97 02/16/19 07:30 71 24 97 Mechanical Ventilator 40 02/16/19 07:20 40 02/16/19 07:00 40 02/16/19 07:00 98.5 110 24 162/122 (135) 93 02/16/19 06:30 84 22 173/76 (108) 97 02/16/19 06:15 86 23 173/73 (106) 100 02/16/19 06:00 24 Mechanical Ventilator 40 02/16/19 06:00 24 Mechanical Ventilator 40 02/16/19 06:00 80 24 161/67 (98) 96 02/16/19 05:48 171/72 02/16/19 05:47 171/72 02/16/19 05:45 77 22 163/70 (101) 95 02/16/19 05:45 24 Mechanical Ventilator 40 02/16/19 05:35 24 Mechanical Ventilator 40 02/16/19 05:35 24 Mechanical Ventilator 40 02/16/19 05:30 24 Mechanical Ventilator 40 02/16/19 05:30 79 24 171/72 (105) 96 02/16/19 05:15 77 23 167/72 (103) 96 02/16/19 05:15 78 24 40 02/16/19 05:15 24 Mechanical Ventilator 40 02/16/19 05:00 79 24 166/73 (104) 95 02/16/19 05:00 24 Mechanical Ventilator 40 02/16/19 05:00 24 Mechanical Ventilator 40 02/16/19 04:45 74 23 160/67 (98) 94 02/16/19 04:30 78 24 166/74 (104) 96 02/16/19 04:30 24 Mechanical Ventilator 40 02/16/19 04:30 24 Mechanical Ventilator 40 02/16/19 04:27 166/73 02/16/19 04:15 80 25 166/73 (104) 96 02/16/19 04:15 24 Mechanical Ventilator 40 02/16/19 04:15 24 Mechanical Ventilator 40 02/16/19 04:00 40 02/16/19 04:00 Mechanical Ventilator Mechanical Ventilator Mechanical Ventilator 02/16/19 04:00 24 Mechanical Ventilator 40 02/16/19 04:00 24 Mechanical Ventilator 40 02/16/19 04:00 98.6 74 24 158/64 (95) 93 02/16/19 04:00 76 02/16/19 03:45 75 24 156/63 (94) 95 02/16/19 03:30 75 15 154/62 (92) 95 02/16/19 03:24 74 24 98 Mechanical Ventilator 40 02/16/19 03:16 75 24 97 Mechanical Ventilator 40 02/16/19 03:15 76 24 161/67 (98) 98 02/16/19 03:15 77 24 40 02/16/19 03:00 76 15 161/66 (97) 96 02/16/19 03:00 24 Mechanical Ventilator 40 02/16/19 03:00 24 Mechanical Ventilator 40 02/16/19 02:45 82 11 166/73 (104) 95 02/16/19 02:31 85 19 176/77 (110) 96 02/16/19 02:00 24 Mechanical Ventilator 40 02/16/19 02:00 24 Mechanical Ventilator 40 02/16/19 02:00 79 24 170/72 (104) 96 02/16/19 01:40 98.4 02/16/19 01:30 84 21 172/80 (110) 97 02/16/19 01:15 79 24 40 02/16/19 01:10 24 Mechanical Ventilator 40 02/16/19 01:00 76 21 164/97 (119) 95 02/16/19 01:00 24 Mechanical Ventilator 40 02/16/19 01:00 24 Mechanical Ventilator 40 02/16/19 00:45 77 23 166/69 (101) 95 02/16/19 00:30 75 23 159/64 (95) 95 02/16/19 00:06 170/66 02/16/19 00:06 170/66 02/16/19 00:05 24 Mechanical Ventilator 40 02/16/19 00:00 98.4 80 23 170/66 (100) 96 02/16/19 00:00 Mechanical Ventilator Mechanical Ventilator Mechanical Ventilator 02/16/19 00:00 24 Mechanical Ventilator 40 02/16/19 00:00 24 Mechanical Ventilator 40 02/16/19 00:00 40 02/16/19 00:00 74 02/15/19 23:30 76 21 168/64 (98) 94 02/15/19 23:04 75 24 98 Mechanical Ventilator 40 02/15/19 23:00 75 21 160/62 (94) 96 02/15/19 23:00 24 Mechanical Ventilator 40 02/15/19 23:00 24 Mechanical Ventilator 40 02/15/19 22:57 74 24 97 Mechanical Ventilator 40 02/15/19 22:56 76 24 40 02/15/19 22:30 75 21 160/62 (94) 96 02/15/19 22:00 74 23 167/70 (102) 96 02/15/19 22:00 24 Mechanical Ventilator 40 02/15/19 22:00 24 Mechanical Ventilator 40 02/15/19 21:55 24 40 02/15/19 21:30 74 24 167/70 (102) 96 02/15/19 21:18 77 24 40 02/15/19 21:00 24 Mechanical Ventilator 40 02/15/19 21:00 24 Mechanical Ventilator 40 02/15/19 21:00 77 24 164/71 (102) 96 02/15/19 20:53 74 147/58 02/15/19 20:30 74 24 147/58 (87) 95 02/15/19 20:00 75 02/15/19 20:00 40 02/15/19 20:00 24 Mechanical Ventilator 40 02/15/19 20:00 24 Mechanical Ventilator 40 02/15/19 20:00 Mechanical Ventilator Mechanical Ventilator Mechanical Ventilator 02/15/19 20:00 74 24 145/59 (87) 95 02/15/19 19:30 98.5 79 24 153/65 (94) 96 02/15/19 19:04 73 24 99 Mechanical Ventilator 40 02/15/19 19:00 75 24 144/55 (84) 96 02/15/19 19:00 24 Mechanical Ventilator 40 02/15/19 19:00 24 Mechanical Ventilator 40 02/15/19 18:57 75 24 98 Mechanical Ventilator 40 02/15/19 18:55 75 25 40 02/15/19 18:30 74 24 155/63 (93) 96 02/15/19 18:11 180/66 02/15/19 18:10 180/66 02/15/19 18:00 79 24 162/67 (98) 97 02/15/19 17:30 77 24 151/65 (93) 97 02/15/19 17:00 24 Mechanical Ventilator 40 02/15/19 17:00 24 Mechanical Ventilator 40 02/15/19 17:00 72 24 150/66 (94) 96 02/15/19 16:32 73 24 40 02/15/19 16:30 74 24 162/71 (101) 96 02/15/19 16:00 98.5 81 24 164/69 (100) 98 02/15/19 16:00 81 02/15/19 16:00 24 Mechanical Ventilator 40 02/15/19 16:00 24 Mechanical Ventilator 40 02/15/19 16:00 40 02/15/19 16:00 Mechanical Ventilator Mechanical Ventilator Mechanical Ventilator 02/15/19 15:31 22 Mechanical Ventilator 40 02/15/19 15:30 78 25 165/75 (105) 97 02/15/19 15:00 78 24 150/63 (92) 97 02/15/19 15:00 24 Mechanical Ventilator 40 02/15/19 15:00 24 Mechanical Ventilator 40 02/15/19 14:56 69 24 98 Mechanical Ventilator 40 02/15/19 14:48 73 24 96 Mechanical Ventilator 40 02/15/19 14:48 73 24 40 02/15/19 14:30 75 24 149/73 (98) 97 02/15/19 14:00 24 Mechanical Ventilator 40 02/15/19 14:00 24 Mechanical Ventilator 40 02/15/19 14:00 69 24 143/59 (87) 94 02/15/19 13:30 73 24 143/59 (87) 94 02/15/19 13:01 74 24 40 02/15/19 13:00 23 Mechanical Ventilator 40 02/15/19 13:00 23 Mechanical Ventilator 40 02/15/19 13:00 98.0 82 23 141/59 (86) 95 02/15/19 12:30 83 23 143/59 (87) 96 02/15/19 12:30 24 Mechanical Ventilator 40 02/15/19 12:30 24 Mechanical Ventilator 40 02/15/19 12:09 167/68 02/15/19 12:08 167/68 02/15/19 12:00 40 02/15/19 12:00 81 24 156/74 (101) 96 02/15/19 12:00 Mechanical Ventilator Mechanical Ventilator Mechanical Ventilator 02/15/19 12:00 81 02/15/19 12:00 24 Mechanical Ventilator 40 02/15/19 12:00 24 Mechanical Ventilator 40 02/15/19 11:30 80 24 167/68 (101) 97 02/15/19 11:00 24 Mechanical Ventilator 40 02/15/19 11:00 24 Mechanical Ventilator 40 02/15/19 11:00 73 24 160/72 (101) 96 02/15/19 10:47 78 24 99 Mechanical Ventilator 40 02/15/19 10:37 75 24 96 Mechanical Ventilator 40 02/15/19 10:34 67 24 40 02/15/19 10:30 78 24 159/67 (97) 97 02/15/19 10:00 68 24 155/65 (95) 97 02/15/19 10:00 24 Mechanical Ventilator 40 02/15/19 10:00 24 Mechanical Ventilator 40 Intake and Output 02/15/19 02/16/19 18:59 06:59 Intake Total 2900.000 ml 2841.000 ml Output Total 1220 ml 800 ml Balance 1680.000 ml 2041.000 ml Free Water 300 ml IV Total 2120.000 ml 2071.000 ml Tube Feeding 480 ml 650 ml Other 120 ml Output Urine Total 1220 ml 800 ml # Bowel Movements 2 1 Laboratory Tests 02/16/19 03:30: Stool Occult Blood Negative 02/16/19 05:05: White Blood Count 7.8#, Red Blood Count 3.26L, Hemoglobin 8.9L, Hematocrit 27.8L , Mean Corpuscular Volume 85, Mean Corpuscular Hemoglobin 27.5, Mean Corpuscular Hemoglobin Concent 32.1, Red Cell Distribution Width 18.1H, Platelet Count 253, Mean Platelet Volume 6.4L, Neutrophils (%) (Auto) , Lymphocytes (%) (Auto) , Monocytes (%) (Auto) , Eosinophils (%) (Auto) , Basophils (%) (Auto) , Sodium Level 148H, Potassium Level 5.8H, Chloride Level 114H, Carbon Dioxide Level 28, Anion Gap 6, Blood Urea Nitrogen 71H, Creatinine 2.6H, Estimat Glomerular Filtration Rate 25.4, Glucose Level 269H, Uric Acid 4.8 , Calcium Level 7.8L, Phosphorus Level 4.6, Magnesium Level 2.9H, Total Bilirubin 0.2, Aspartate Amino Transf (AST/SGOT) 32, Alanine Aminotransferase ( ALT/SGPT) 51, Alkaline Phosphatase 157H, C-Reactive Protein, Quantitative 2.2H, Pro-B-Type Natriuretic Peptide 5575H, Total Protein 5.7L, Albumin 2.0L, Globulin 3.7, Albumin/Globulin Ratio 0.5L, Random Vancomycin Level 11.4 02/16/19 08:08: Arterial Blood pH 7.244*L, Arterial Blood Partial Pressure CO2 59.1*H, Arterial Blood Partial Pressure O2 63.4L, Arterial Blood HCO3 25.0, Arterial Blood Oxygen Saturation 87.0*L, Arterial Blood Base Excess -3.0L, Benny Test Positive Height (Feet): 6 Height (Inches): 0.00 Weight (Pounds): 260 EENT: other - vented Cardiovascular: tachycardia Respiratory/Chest: decreased breath sounds Abdomen: distended Mike Mcdonald MD Feb 16, 2019 09:38
[2019-02-16] MEDS: ETRAVIRINE 200 MG ORAL SCH (09:39)
[2019-02-16] MEDS: RALTEGRAVIR 400 MG ORAL SCH ×2 (09:39→17:34)
--- NOTE | 2019-02-16 10:22 | NUR ---
RD ASSESSMENT & RECOMMENDATIONS SEE CARE ACTIVITY FOR COMPLETE ASSESSMENT DAILY ESTIMATED NEEDS: Needs based on Critical care, HIV 85kg adj 22-30 kcals/kg 8313-0810 total kcals 1.2-2 g protein/kg 102-170 g total protein 25-30 mL/kg 3221-2876 total fluid mLs NUTRITION DIAGNOSIS: *Swallowing difficulty r/t respiratory status as evidenced by pt on bipap, desat to 78%, critical ABG results, now orally intubated, ICU status. * Altered nutrition related lab values R/T clinical condition, ISH, DM as eivdenced by elev K (5.8 trend up), elev creat (1.5->3.9->2.6 trend down), elev BGs (269 204) w/ A1C 7.0. CURRENT TF:Glucerna 1.5 @50ml/hr x24 hrs + Prosource TID ENTERAL NUTRITION RECOMMENDATIONS: Nepro @ 43ml/hr x 24 hrs + Prosource 1pkt BID to provide 1032ml, 1857 kcal (+80 kcal), 83g prot (+22g prot), 750ml free water - Rec TF CHANGE to NEPRO - Initiate Nepro @ 33ml/hr x 6 hrs, advance 10ml q 4-6 hrs as tolerated - Add Prosource 1pkt BID for additional 80kcal/22g prot -> pt will meet 100% est kcal/prot needs - Flush per MD/ HOB over 30 degrees. will provide 1930mg less K than current TF order ADDITIONAL RECOMMENDATIONS: 1) CALIBRATED BEDSCALE WT, weekly wts 2) Monitor renal fxn, K and Phos- K trend up * Rec TF change to Nepro at this time 3) Monitor BGs closely while on solumedrol and D5 IVF .
--- NOTE | 2019-02-16 11:22 | Diagnostic Imaging Report ---
Indication: Shortness of breath Technique: XRAY Chest 1v Comparison: 02/15/2019 Findings: Endotracheal tube tip just below level of the clavicles. Enteric tube tip in the stomach. Heart size is stable. There is interval worsening of aeration with increasing interstitial and bilateral airspace disease. Small layering left pleural effusion not excluded. No evidence of pneumothorax. Osseous structures stable. Impression: Worsening of aeration with increasing interstitial and bilateral predominantly perihilar airspace disease. Findings likely related to worsening CHF/pulmonary edema. Superimposed pneumonia to be excluded clinically. Follow-up recommended.
--- NOTE | 2019-02-16 11:40 | NUR ---
NURSE NOTES: STAT CXR RESULT relayed to Dr Meredith,will follow up with new orders
--- NOTE | 2019-02-16 11:56 | General Progress Note ---
Assessment/Plan Status: stable Assessment/Plan: 1. History of HIV. 2. Hypertension. 3. Vertigo. 4. History of headaches. 5. History of diabetes. 6. Respiratory failure 7. Dysphagia 8. ileus NGTF failed weaning fu lans had BM Subjective ROS Limited/Unobtainable: No Allergies: Coded Allergies: No Known Allergies (Unverified , 02/05/13) Objective Last 24 Hour Vital Signs Date Time Temp Pulse Resp B/P (MAP) Pulse Ox O2 Delivery O2 Flow Rate FiO2 02/16/19 11:30 77 30 156/76 (102) 92 02/16/19 11:16 73 30 98 Mechanical Ventilator 50 02/16/19 11:10 76 30 60 02/16/19 11:10 77 30 97 Mechanical Ventilator 50 02/16/19 11:00 30 Mechanical Ventilator 02/16/19 11:00 30 Mechanical Ventilator 02/16/19 11:00 78 30 156/75 (102) 95 02/16/19 10:30 80 30 147/70 (95) 92 02/16/19 10:00 82 30 146/86 (106) 96 02/16/19 10:00 30 Mechanical Ventilator 02/16/19 10:00 30 02/16/19 09:35 88 154/76 02/16/19 09:33 87 154/64 02/16/19 09:30 86 30 147/78 (101) 91 02/16/19 09:25 79 30 60 02/16/19 09:00 30 Mechanical Ventilator 02/16/19 09:00 30 02/16/19 09:00 92 30 155/70 (98) 91 02/16/19 08:30 96 19 173/82 (112) 100 02/16/19 08:15 100 02/16/19 08:00 29 Mechanical Ventilator 02/16/19 08:00 29 Mechanical Ventilator 02/16/19 08:00 113 19 192/110 (137) 88 02/16/19 08:00 40 02/16/19 08:00 Mechanical Ventilator Mechanical Ventilator Mechanical Ventilator 02/16/19 08:00 110 02/16/19 07:40 72 24 98 Mechanical Ventilator 40 02/16/19 07:30 76 24 40 45 02/16/19 07:30 116 22 192/110 (137) 97 02/16/19 07:30 71 24 97 Mechanical Ventilator 40 02/16/19 07:20 40 02/16/19 07:00 40 02/16/19 07:00 19 Mechanical Ventilator 02/16/19 07:00 19 02/16/19 07:00 98.5 110 24 162/122 (135) 93 02/16/19 06:30 84 22 173/76 (108) 97 02/16/19 06:15 86 23 173/73 (106) 100 02/16/19 06:00 24 Mechanical Ventilator 40 02/16/19 06:00 24 Mechanical Ventilator 40 02/16/19 06:00 80 24 161/67 (98) 96 02/16/19 05:48 171/72 02/16/19 05:47 171/72 02/16/19 05:45 77 22 163/70 (101) 95 02/16/19 05:45 24 Mechanical Ventilator 40 02/16/19 05:35 24 Mechanical Ventilator 40 02/16/19 05:35 24 Mechanical Ventilator 40 02/16/19 05:30 24 Mechanical Ventilator 40 02/16/19 05:30 79 24 171/72 (105) 96 02/16/19 05:15 77 23 167/72 (103) 96 02/16/19 05:15 78 24 40 02/16/19 05:15 24 Mechanical Ventilator 40 02/16/19 05:00 79 24 166/73 (104) 95 02/16/19 05:00 24 Mechanical Ventilator 40 02/16/19 05:00 24 Mechanical Ventilator 40 02/16/19 04:45 74 23 160/67 (98) 94 02/16/19 04:30 78 24 166/74 (104) 96 02/16/19 04:30 24 Mechanical Ventilator 40 02/16/19 04:30 24 Mechanical Ventilator 40 02/16/19 04:27 166/73 02/16/19 04:15 80 25 166/73 (104) 96 02/16/19 04:15 24 Mechanical Ventilator 40 02/16/19 04:15 24 Mechanical Ventilator 40 02/16/19 04:00 40 02/16/19 04:00 Mechanical Ventilator Mechanical Ventilator Mechanical Ventilator 02/16/19 04:00 24 Mechanical Ventilator 40 02/16/19 04:00 24 Mechanical Ventilator 40 02/16/19 04:00 98.6 74 24 158/64 (95) 93 02/16/19 04:00 76 02/16/19 03:45 75 24 156/63 (94) 95 02/16/19 03:30 75 15 154/62 (92) 95 02/16/19 03:24 74 24 98 Mechanical Ventilator 40 02/16/19 03:16 75 24 97 Mechanical Ventilator 40 02/16/19 03:15 76 24 161/67 (98) 98 02/16/19 03:15 77 24 40 02/16/19 03:00 76 15 161/66 (97) 96 02/16/19 03:00 24 Mechanical Ventilator 40 02/16/19 03:00 24 Mechanical Ventilator 40 02/16/19 02:45 82 11 166/73 (104) 95 02/16/19 02:31 85 19 176/77 (110) 96 02/16/19 02:00 24 Mechanical Ventilator 40 02/16/19 02:00 24 Mechanical Ventilator 40 02/16/19 02:00 79 24 170/72 (104) 96 02/16/19 01:40 98.4 02/16/19 01:30 84 21 172/80 (110) 97 02/16/19 01:15 79 24 40 02/16/19 01:10 24 Mechanical Ventilator 40 02/16/19 01:00 76 21 164/97 (119) 95 02/16/19 01:00 24 Mechanical Ventilator 40 02/16/19 01:00 24 Mechanical Ventilator 40 02/16/19 00:45 77 23 166/69 (101) 95 02/16/19 00:30 75 23 159/64 (95) 95 02/16/19 00:06 170/66 02/16/19 00:06 170/66 02/16/19 00:05 24 Mechanical Ventilator 40 02/16/19 00:00 98.4 80 23 170/66 (100) 96 02/16/19 00:00 Mechanical Ventilator Mechanical Ventilator Mechanical Ventilator 02/16/19 00:00 24 Mechanical Ventilator 40 02/16/19 00:00 24 Mechanical Ventilator 40 02/16/19 00:00 40 02/16/19 00:00 74 02/15/19 23:30 76 21 168/64 (98) 94 02/15/19 23:04 75 24 98 Mechanical Ventilator 40 02/15/19 23:00 75 21 160/62 (94) 96 02/15/19 23:00 24 Mechanical Ventilator 40 02/15/19 23:00 24 Mechanical Ventilator 40 02/15/19 22:57 74 24 97 Mechanical Ventilator 40 02/15/19 22:56 76 24 40 02/15/19 22:30 75 21 160/62 (94) 96 02/15/19 22:00 74 23 167/70 (102) 96 02/15/19 22:00 24 Mechanical Ventilator 40 02/15/19 22:00 24 Mechanical Ventilator 40 02/15/19 21:55 24 40 02/15/19 21:30 74 24 167/70 (102) 96 02/15/19 21:18 77 24 40 02/15/19 21:00 24 Mechanical Ventilator 40 02/15/19 21:00 24 Mechanical Ventilator 40 02/15/19 21:00 77 24 164/71 (102) 96 02/15/19 20:53 74 147/58 02/15/19 20:30 74 24 147/58 (87) 95 02/15/19 20:00 75 02/15/19 20:00 40 02/15/19 20:00 24 Mechanical Ventilator 40 02/15/19 20:00 24 Mechanical Ventilator 40 02/15/19 20:00 Mechanical Ventilator Mechanical Ventilator Mechanical Ventilator 02/15/19 20:00 74 24 145/59 (87) 95 02/15/19 19:30 98.5 79 24 153/65 (94) 96 02/15/19 19:04 73 24 99 Mechanical Ventilator 40 02/15/19 19:00 75 24 144/55 (84) 96 02/15/19 19:00 24 Mechanical Ventilator 40 02/15/19 19:00 24 Mechanical Ventilator 40 02/15/19 18:57 75 24 98 Mechanical Ventilator 40 02/15/19 18:55 75 25 40 02/15/19 18:30 74 24 155/63 (93) 96 02/15/19 18:11 180/66 02/15/19 18:10 180/66 02/15/19 18:00 79 24 162/67 (98) 97 02/15/19 17:30 77 24 151/65 (93) 97 02/15/19 17:00 24 Mechanical Ventilator 40 02/15/19 17:00 24 Mechanical Ventilator 40 02/15/19 17:00 72 24 150/66 (94) 96 02/15/19 16:32 73 24 40 02/15/19 16:30 74 24 162/71 (101) 96 02/15/19 16:00 98.5 81 24 164/69 (100) 98 02/15/19 16:00 81 02/15/19 16:00 24 Mechanical Ventilator 40 02/15/19 16:00 24 Mechanical Ventilator 40 02/15/19 16:00 40 02/15/19 16:00 Mechanical Ventilator Mechanical Ventilator Mechanical Ventilator 02/15/19 15:31 22 Mechanical Ventilator 40 02/15/19 15:30 78 25 165/75 (105) 97 02/15/19 15:00 78 24 150/63 (92) 97 02/15/19 15:00 24 Mechanical Ventilator 40 02/15/19 15:00 24 Mechanical Ventilator 40 02/15/19 14:56 69 24 98 Mechanical Ventilator 40 02/15/19 14:48 73 24 96 Mechanical Ventilator 40 02/15/19 14:48 73 24 40 02/15/19 14:30 75 24 149/73 (98) 97 02/15/19 14:00 24 Mechanical Ventilator 40 02/15/19 14:00 24 Mechanical Ventilator 40 02/15/19 14:00 69 24 143/59 (87) 94 02/15/19 13:30 73 24 143/59 (87) 94 02/15/19 13:01 74 24 40 02/15/19 13:00 23 Mechanical Ventilator 40 02/15/19 13:00 23 Mechanical Ventilator 40 02/15/19 13:00 98.0 82 23 141/59 (86) 95 02/15/19 12:30 83 23 143/59 (87) 96 02/15/19 12:30 24 Mechanical Ventilator 40 02/15/19 12:30 24 Mechanical Ventilator 40 02/15/19 12:09 167/68 02/15/19 12:08 167/68 02/15/19 12:00 40 02/15/19 12:00 81 24 156/74 (101) 96 02/15/19 12:00 Mechanical Ventilator Mechanical Ventilator Mechanical Ventilator 02/15/19 12:00 81 02/15/19 12:00 24 Mechanical Ventilator 40 02/15/19 12:00 24 Mechanical Ventilator 40 Intake and Output 02/15/19 02/16/19 19:00 07:00 Intake Total 2972.750 ml 2680.500 ml Output Total 1195 ml 765 ml Balance 1777.750 ml 1915.500 ml Free Water 300 ml 60 ml IV Total 2177.750 ml 1850.500 ml Tube Feeding 495 ml 650 ml Other 120 ml Output Urine Total 1195 ml 765 ml # Bowel Movements 2 2 Laboratory Tests 02/16/19 03:30: Stool Occult Blood Negative 02/16/19 05:05: White Blood Count 7.8#, Red Blood Count 3.26L, Hemoglobin 8.9L, Hematocrit 27.8L , Mean Corpuscular Volume 85, Mean Corpuscular Hemoglobin 27.5, Mean Corpuscular Hemoglobin Concent 32.1, Red Cell Distribution Width 18.1H, Platelet Count 253, Mean Platelet Volume 6.4L, Neutrophils (%) (Auto) , Lymphocytes (%) (Auto) , Monocytes (%) (Auto) , Eosinophils (%) (Auto) , Basophils (%) (Auto) , Sodium Level 148H, Potassium Level 5.8H, Chloride Level 114H, Carbon Dioxide Level 28, Anion Gap 6, Blood Urea Nitrogen 71H, Creatinine 2.6H, Estimat Glomerular Filtration Rate 25.4, Glucose Level 269H, Uric Acid 4.8 , Calcium Level 7.8L, Phosphorus Level 4.6, Magnesium Level 2.9H, Total Bilirubin 0.2, Aspartate Amino Transf (AST/SGOT) 32, Alanine Aminotransferase ( ALT/SGPT) 51, Alkaline Phosphatase 157H, C-Reactive Protein, Quantitative 2.2H, Pro-B-Type Natriuretic Peptide 5575H, Total Protein 5.7L, Albumin 2.0L, Globulin 3.7, Albumin/Globulin Ratio 0.5L, Random Vancomycin Level 11.4 02/16/19 08:08: Arterial Blood pH 7.244*L, Arterial Blood Partial Pressure CO2 59.1*H, Arterial Blood Partial Pressure O2 63.4L, Arterial Blood HCO3 25.0, Arterial Blood Oxygen Saturation 87.0*L, Arterial Blood Base Excess -3.0L, Benny Test Positive Height (Feet): 6 Height (Inches): 0.00 Weight (Pounds): 260 General Appearance: lethargic EENT: normal ENT inspection Neck: supple Cardiovascular: tachycardia Respiratory/Chest: decreased breath sounds Abdomen: normal bowel sounds, non tender, soft Extremities: non-tender, swelling Vosoghi,Kg MD Feb 16, 2019 11:56
--- NOTE | 2019-02-16 12:10 | Surgery Progress Note ---
Surgery Progress Note Subjective Procedure Performed left femoral temporary Hemodialysis catheter insertion Additional Comments in ICU ill appearing labs noted exam with anasarca line okay cxr noted on vent support still critical more responsive to painful stimuli today Objective Last 24 Hour Vital Signs Date Time Temp Pulse Resp B/P (MAP) Pulse Ox O2 Delivery O2 Flow Rate FiO2 02/16/19 12:00 98.1 74 30 152/78 (102) 93 02/16/19 12:00 Mechanical Ventilator Mechanical Ventilator Mechanical Ventilator 02/16/19 11:30 77 30 156/76 (102) 92 02/16/19 11:16 73 30 98 Mechanical Ventilator 50 02/16/19 11:10 76 30 60 02/16/19 11:10 77 30 97 Mechanical Ventilator 50 02/16/19 11:00 30 Mechanical Ventilator 02/16/19 11:00 30 Mechanical Ventilator 02/16/19 11:00 78 30 156/75 (102) 95 02/16/19 10:30 80 30 147/70 (95) 92 02/16/19 10:00 82 30 146/86 (106) 96 02/16/19 10:00 30 Mechanical Ventilator 02/16/19 10:00 30 02/16/19 09:35 88 154/76 02/16/19 09:33 87 154/64 02/16/19 09:30 86 30 147/78 (101) 91 02/16/19 09:25 79 30 60 02/16/19 09:00 30 Mechanical Ventilator 02/16/19 09:00 30 02/16/19 09:00 92 30 155/70 (98) 91 02/16/19 08:30 96 19 173/82 (112) 100 02/16/19 08:15 100 02/16/19 08:00 29 Mechanical Ventilator 02/16/19 08:00 29 Mechanical Ventilator 02/16/19 08:00 113 19 192/110 (137) 88 02/16/19 08:00 40 02/16/19 08:00 Mechanical Ventilator Mechanical Ventilator Mechanical Ventilator 02/16/19 08:00 110 02/16/19 07:40 72 24 98 Mechanical Ventilator 40 02/16/19 07:30 76 24 40 45 02/16/19 07:30 116 22 192/110 (137) 97 02/16/19 07:30 71 24 97 Mechanical Ventilator 40 02/16/19 07:20 40 02/16/19 07:00 40 02/16/19 07:00 19 Mechanical Ventilator 02/16/19 07:00 19 02/16/19 07:00 98.5 110 24 162/122 (135) 93 02/16/19 06:30 84 22 173/76 (108) 97 02/16/19 06:15 86 23 173/73 (106) 100 02/16/19 06:00 24 Mechanical Ventilator 40 02/16/19 06:00 24 Mechanical Ventilator 40 02/16/19 06:00 80 24 161/67 (98) 96 02/16/19 05:48 171/72 02/16/19 05:47 171/72 02/16/19 05:45 77 22 163/70 (101) 95 02/16/19 05:45 24 Mechanical Ventilator 40 02/16/19 05:35 24 Mechanical Ventilator 40 02/16/19 05:35 24 Mechanical Ventilator 40 02/16/19 05:30 24 Mechanical Ventilator 40 02/16/19 05:30 79 24 171/72 (105) 96 02/16/19 05:15 77 23 167/72 (103) 96 02/16/19 05:15 78 24 40 02/16/19 05:15 24 Mechanical Ventilator 40 02/16/19 05:00 79 24 166/73 (104) 95 02/16/19 05:00 24 Mechanical Ventilator 40 02/16/19 05:00 24 Mechanical Ventilator 40 02/16/19 04:45 74 23 160/67 (98) 94 02/16/19 04:30 78 24 166/74 (104) 96 02/16/19 04:30 24 Mechanical Ventilator 40 02/16/19 04:30 24 Mechanical Ventilator 40 02/16/19 04:27 166/73 02/16/19 04:15 80 25 166/73 (104) 96 02/16/19 04:15 24 Mechanical Ventilator 40 02/16/19 04:15 24 Mechanical Ventilator 40 02/16/19 04:00 40 02/16/19 04:00 Mechanical Ventilator Mechanical Ventilator Mechanical Ventilator 02/16/19 04:00 24 Mechanical Ventilator 40 02/16/19 04:00 24 Mechanical Ventilator 40 02/16/19 04:00 98.6 74 24 158/64 (95) 93 02/16/19 04:00 76 02/16/19 03:45 75 24 156/63 (94) 95 02/16/19 03:30 75 15 154/62 (92) 95 02/16/19 03:24 74 24 98 Mechanical Ventilator 40 02/16/19 03:16 75 24 97 Mechanical Ventilator 40 02/16/19 03:15 76 24 161/67 (98) 98 02/16/19 03:15 77 24 40 02/16/19 03:00 76 15 161/66 (97) 96 02/16/19 03:00 24 Mechanical Ventilator 40 02/16/19 03:00 24 Mechanical Ventilator 40 02/16/19 02:45 82 11 166/73 (104) 95 02/16/19 02:31 85 19 176/77 (110) 96 02/16/19 02:00 24 Mechanical Ventilator 40 02/16/19 02:00 24 Mechanical Ventilator 40 02/16/19 02:00 79 24 170/72 (104) 96 02/16/19 01:40 98.4 02/16/19 01:30 84 21 172/80 (110) 97 02/16/19 01:15 79 24 40 02/16/19 01:10 24 Mechanical Ventilator 40 02/16/19 01:00 76 21 164/97 (119) 95 02/16/19 01:00 24 Mechanical Ventilator 40 02/16/19 01:00 24 Mechanical Ventilator 40 02/16/19 00:45 77 23 166/69 (101) 95 02/16/19 00:30 75 23 159/64 (95) 95 02/16/19 00:06 170/66 02/16/19 00:06 170/66 02/16/19 00:05 24 Mechanical Ventilator 40 02/16/19 00:00 98.4 80 23 170/66 (100) 96 02/16/19 00:00 Mechanical Ventilator Mechanical Ventilator Mechanical Ventilator 02/16/19 00:00 24 Mechanical Ventilator 40 02/16/19 00:00 24 Mechanical Ventilator 40 02/16/19 00:00 40 02/16/19 00:00 74 02/15/19 23:30 76 21 168/64 (98) 94 02/15/19 23:04 75 24 98 Mechanical Ventilator 40 02/15/19 23:00 75 21 160/62 (94) 96 02/15/19 23:00 24 Mechanical Ventilator 40 02/15/19 23:00 24 Mechanical Ventilator 40 02/15/19 22:57 74 24 97 Mechanical Ventilator 40 02/15/19 22:56 76 24 40 02/15/19 22:30 75 21 160/62 (94) 96 02/15/19 22:00 74 23 167/70 (102) 96 02/15/19 22:00 24 Mechanical Ventilator 40 02/15/19 22:00 24 Mechanical Ventilator 40 02/15/19 21:55 24 40 02/15/19 21:30 74 24 167/70 (102) 96 02/15/19 21:18 77 24 40 02/15/19 21:00 24 Mechanical Ventilator 40 02/15/19 21:00 24 Mechanical Ventilator 40 02/15/19 21:00 77 24 164/71 (102) 96 02/15/19 20:53 74 147/58 02/15/19 20:30 74 24 147/58 (87) 95 02/15/19 20:00 75 02/15/19 20:00 40 02/15/19 20:00 24 Mechanical Ventilator 40 02/15/19 20:00 24 Mechanical Ventilator 40 02/15/19 20:00 Mechanical Ventilator Mechanical Ventilator Mechanical Ventilator 02/15/19 20:00 74 24 145/59 (87) 95 02/15/19 19:30 98.5 79 24 153/65 (94) 96 02/15/19 19:04 73 24 99 Mechanical Ventilator 40 02/15/19 19:00 75 24 144/55 (84) 96 02/15/19 19:00 24 Mechanical Ventilator 40 02/15/19 19:00 24 Mechanical Ventilator 40 02/15/19 18:57 75 24 98 Mechanical Ventilator 40 02/15/19 18:55 75 25 40 02/15/19 18:30 74 24 155/63 (93) 96 02/15/19 18:11 180/66 02/15/19 18:10 180/66 02/15/19 18:00 79 24 162/67 (98) 97 02/15/19 17:30 77 24 151/65 (93) 97 02/15/19 17:00 24 Mechanical Ventilator 40 02/15/19 17:00 24 Mechanical Ventilator 40 02/15/19 17:00 72 24 150/66 (94) 96 02/15/19 16:32 73 24 40 02/15/19 16:30 74 24 162/71 (101) 96 02/15/19 16:00 98.5 81 24 164/69 (100) 98 02/15/19 16:00 81 02/15/19 16:00 24 Mechanical Ventilator 40 02/15/19 16:00 24 Mechanical Ventilator 40 02/15/19 16:00 40 02/15/19 16:00 Mechanical Ventilator Mechanical Ventilator Mechanical Ventilator 02/15/19 15:31 22 Mechanical Ventilator 40 02/15/19 15:30 78 25 165/75 (105) 97 02/15/19 15:00 78 24 150/63 (92) 97 02/15/19 15:00 24 Mechanical Ventilator 40 02/15/19 15:00 24 Mechanical Ventilator 40 02/15/19 14:56 69 24 98 Mechanical Ventilator 40 02/15/19 14:48 73 24 96 Mechanical Ventilator 40 02/15/19 14:48 73 24 40 02/15/19 14:30 75 24 149/73 (98) 97 02/15/19 14:00 24 Mechanical Ventilator 40 02/15/19 14:00 24 Mechanical Ventilator 40 02/15/19 14:00 69 24 143/59 (87) 94 02/15/19 13:30 73 24 143/59 (87) 94 02/15/19 13:01 74 24 40 02/15/19 13:00 23 Mechanical Ventilator 40 02/15/19 13:00 23 Mechanical Ventilator 40 02/15/19 13:00 98.0 82 23 141/59 (86) 95 02/15/19 12:30 83 23 143/59 (87) 96 02/15/19 12:30 24 Mechanical Ventilator 40 02/15/19 12:30 24 Mechanical Ventilator 40 I&O Intake and Output 02/15/19 02/16/19 19:00 07:00 Intake Total 2972.750 ml 2680.500 ml Output Total 1195 ml 765 ml Balance 1777.750 ml 1915.500 ml Free Water 300 ml 60 ml IV Total 2177.750 ml 1850.500 ml Tube Feeding 495 ml 650 ml Other 120 ml Output Urine Total 1195 ml 765 ml # Bowel Movements 2 2 Dressing: saturated Wound: other Drains: other Cardiovascular: RSR Respiratory: decreased breath sounds Abdomen: soft, non-distended, decreased bowel sounds Extremities: edema, no cyanosis Laboratory Tests Test 02/16/19 03:30 02/16/19 05:05 02/16/19 08:08 Stool Occult Blood Negative (NEGATIVE) White Blood Count 7.8 K/UL (4.8-10.8) # Red Blood Count 3.26 M/UL (4.70-6.10) L Hemoglobin 8.9 G/DL (14.2-18.0) L Hematocrit 27.8 % (42.0-52.0) L Mean Corpuscular Volume 85 FL (80-99) Mean Corpuscular Hemoglobin 27.5 PG (27.0-31.0) Mean Corpuscular Hemoglobin Concent 32.1 G/DL (32.0-36.0) Red Cell Distribution Width 18.1 % (11.6-14.8) H Platelet Count 253 K/UL (150-450) Mean Platelet Volume 6.4 FL (6.5-10.1) L Neutrophils (%) (Auto) % (45.0-75.0) Lymphocytes (%) (Auto) % (20.0-45.0) Monocytes (%) (Auto) % (1.0-10.0) Eosinophils (%) (Auto) % (0.0-3.0) Basophils (%) (Auto) % (0.0-2.0) Sodium Level 148 MMOL/L (136-145) H Potassium Level 5.8 MMOL/L (3.5-5.1) H Chloride Level 114 MMOL/L (98-107) H Carbon Dioxide Level 28 MMOL/L (21-32) Anion Gap 6 mmol/L (5-15) Blood Urea Nitrogen 71 mg/dL (7-18) H Creatinine 2.6 MG/DL (0.55-1.30) H Estimat Glomerular Filtration Rate 25.4 mL/min (>60) Glucose Level 269 MG/DL (74-106) H Uric Acid 4.8 MG/DL (2.6-7.2) Calcium Level 7.8 MG/DL (8.5-10.1) L Phosphorus Level 4.6 MG/DL (2.5-4.9) Magnesium Level 2.9 MG/DL (1.8-2.4) H Total Bilirubin 0.2 MG/DL (0.2-1.0) Aspartate Amino Transf (AST/SGOT) 32 U/L (15-37) Alanine Aminotransferase (ALT/SGPT) 51 U/L (12-78) Alkaline Phosphatase 157 U/L (46-116) H C-Reactive Protein, Quantitative 2.2 mg/dL (0.00-0.90) H Pro-B-Type Natriuretic Peptide 5575 pg/mL (0-125) H Total Protein 5.7 G/DL (6.4-8.2) L Albumin 2.0 G/DL (3.4-5.0) L Globulin 3.7 g/dL Albumin/Globulin Ratio 0.5 (1.0-2.7) L Random Vancomycin Level 11.4 ug/mL Arterial Blood pH 7.244 (7.350-7.450) Arterial Blood Partial Pressure CO2 59.1 mmHg (35.0-45.0) *H Arterial Blood Partial Pressure O2 63.4 mmHg (75.0-100.0) L Arterial Blood HCO3 25.0 mmol/L (22.0-26.0) Arterial Blood Oxygen Saturation 87.0 % (95-100) *L Arterial Blood Base Excess -3.0 (-2-2) L Benyn Test Positive Plan Problems: (1) Hypoxia Assessment & Plan: Extensive bilateral upper lobe infiltrates likely inflammatory/infectious. Correlate clinically. Tuberculosis is not excludable. Bilateral pleural effusions. Endotracheal tube and nasogastric tube in good position Atherosclerotic vascular disease (2) Respiratory distress Assessment & Plan: AM CXR pulm input appreciated (3) Sepsis Assessment & Plan: Sepsis with tachycardia, leukocytosis, abnormal labs, respiratory distress on vent support via ET tube, acidosis. Cont IV abx CXR noted appreciate ICU team care abnormal lft's US noted will need temp HD line as will benefit from HD will cont to follow with recs trend labs Rx as written Moiz Costa Feb 16, 2019 12:10
--- NOTE | 2019-02-16 12:18 | NUR ---
NURSE NOTES: Patient turned and repositioned, suctioned as tolerated.Mouth care done, tolerated well feeding and residual 15cc.HOb elevated at 35 degree to prevent aspiration.Will continue to monitor
--- NOTE | 2019-02-16 12:48 | Cardiac Electrophysiology PN ---
Assessment/Plan Assessment/Plan 1. Non-ST elevation myocardial infarction with peak troponin of more than 10. Down to 2 , up to 7 and down to 3.5 again . EKG shows nonspecific ST-T wave abnormalities. Consider cardiac catheterization after stabilized. Continue aspirin, Lipitor, Imdur and metoprolol 100 mg b.i.d. 2. Hypertension. Continue metoprolol 100 mg b.i.d., Imdur 30 mg daily and hydralazine 50 q 6hr. 3. Respiratory failure due to Multilobar Pneumonia. 4. Hyperlipidemia. On Lipitor. 5. Human immunodeficiency virus. On anti-retroviral therapy with undetectable viral load. 6. Agitation on Fentanyl and Versed drip 7. ARF Cr 3.5. Cr down to 2.5 DW RN Subjective Subjective In ICU on the vent. Off pressors. Still at times agitated despite Fentanyl drip at 150 mcg/hr and Versed drip at 10 mg/hr! Objective Last 24 Hour Vital Signs Date Time Temp Pulse Resp B/P (MAP) Pulse Ox O2 Delivery O2 Flow Rate FiO2 02/16/19 12:00 98.1 74 30 152/78 (102) 93 02/16/19 12:00 Mechanical Ventilator Mechanical Ventilator Mechanical Ventilator 02/16/19 11:30 77 30 156/76 (102) 92 02/16/19 11:16 73 30 98 Mechanical Ventilator 50 02/16/19 11:10 76 30 60 02/16/19 11:10 77 30 97 Mechanical Ventilator 50 02/16/19 11:00 30 Mechanical Ventilator 02/16/19 11:00 30 Mechanical Ventilator 02/16/19 11:00 78 30 156/75 (102) 95 02/16/19 10:30 80 30 147/70 (95) 92 02/16/19 10:00 82 30 146/86 (106) 96 02/16/19 10:00 30 Mechanical Ventilator 02/16/19 10:00 30 02/16/19 09:35 88 154/76 02/16/19 09:33 87 154/64 02/16/19 09:30 86 30 147/78 (101) 91 02/16/19 09:25 79 30 60 02/16/19 09:00 30 Mechanical Ventilator 02/16/19 09:00 30 02/16/19 09:00 92 30 155/70 (98) 91 02/16/19 08:30 96 19 173/82 (112) 100 02/16/19 08:15 100 02/16/19 08:00 29 Mechanical Ventilator 02/16/19 08:00 29 Mechanical Ventilator 02/16/19 08:00 113 19 192/110 (137) 88 02/16/19 08:00 40 02/16/19 08:00 Mechanical Ventilator Mechanical Ventilator Mechanical Ventilator 02/16/19 08:00 110 02/16/19 07:40 72 24 98 Mechanical Ventilator 40 02/16/19 07:30 76 24 40 45 02/16/19 07:30 116 22 192/110 (137) 97 02/16/19 07:30 71 24 97 Mechanical Ventilator 40 02/16/19 07:20 40 02/16/19 07:00 40 02/16/19 07:00 19 Mechanical Ventilator 02/16/19 07:00 19 02/16/19 07:00 98.5 110 24 162/122 (135) 93 02/16/19 06:30 84 22 173/76 (108) 97 02/16/19 06:15 86 23 173/73 (106) 100 02/16/19 06:00 24 Mechanical Ventilator 40 02/16/19 06:00 24 Mechanical Ventilator 40 02/16/19 06:00 80 24 161/67 (98) 96 02/16/19 05:48 171/72 02/16/19 05:47 171/72 02/16/19 05:45 77 22 163/70 (101) 95 02/16/19 05:45 24 Mechanical Ventilator 40 02/16/19 05:35 24 Mechanical Ventilator 40 02/16/19 05:35 24 Mechanical Ventilator 40 02/16/19 05:30 24 Mechanical Ventilator 40 02/16/19 05:30 79 24 171/72 (105) 96 02/16/19 05:15 77 23 167/72 (103) 96 02/16/19 05:15 78 24 40 02/16/19 05:15 24 Mechanical Ventilator 40 02/16/19 05:00 79 24 166/73 (104) 95 02/16/19 05:00 24 Mechanical Ventilator 40 02/16/19 05:00 24 Mechanical Ventilator 40 02/16/19 04:45 74 23 160/67 (98) 94 02/16/19 04:30 78 24 166/74 (104) 96 02/16/19 04:30 24 Mechanical Ventilator 40 02/16/19 04:30 24 Mechanical Ventilator 40 02/16/19 04:27 166/73 02/16/19 04:15 80 25 166/73 (104) 96 02/16/19 04:15 24 Mechanical Ventilator 40 02/16/19 04:15 24 Mechanical Ventilator 40 02/16/19 04:00 40 02/16/19 04:00 Mechanical Ventilator Mechanical Ventilator Mechanical Ventilator 02/16/19 04:00 24 Mechanical Ventilator 40 02/16/19 04:00 24 Mechanical Ventilator 40 02/16/19 04:00 98.6 74 24 158/64 (95) 93 02/16/19 04:00 76 02/16/19 03:45 75 24 156/63 (94) 95 02/16/19 03:30 75 15 154/62 (92) 95 02/16/19 03:24 74 24 98 Mechanical Ventilator 40 02/16/19 03:16 75 24 97 Mechanical Ventilator 40 02/16/19 03:15 76 24 161/67 (98) 98 02/16/19 03:15 77 24 40 02/16/19 03:00 76 15 161/66 (97) 96 02/16/19 03:00 24 Mechanical Ventilator 40 02/16/19 03:00 24 Mechanical Ventilator 40 02/16/19 02:45 82 11 166/73 (104) 95 02/16/19 02:31 85 19 176/77 (110) 96 02/16/19 02:00 24 Mechanical Ventilator 40 02/16/19 02:00 24 Mechanical Ventilator 40 02/16/19 02:00 79 24 170/72 (104) 96 02/16/19 01:40 98.4 02/16/19 01:30 84 21 172/80 (110) 97 02/16/19 01:15 79 24 40 02/16/19 01:10 24 Mechanical Ventilator 40 02/16/19 01:00 76 21 164/97 (119) 95 02/16/19 01:00 24 Mechanical Ventilator 40 02/16/19 01:00 24 Mechanical Ventilator 40 02/16/19 00:45 77 23 166/69 (101) 95 02/16/19 00:30 75 23 159/64 (95) 95 02/16/19 00:06 170/66 02/16/19 00:06 170/66 02/16/19 00:05 24 Mechanical Ventilator 40 02/16/19 00:00 98.4 80 23 170/66 (100) 96 02/16/19 00:00 Mechanical Ventilator Mechanical Ventilator Mechanical Ventilator 02/16/19 00:00 24 Mechanical Ventilator 40 02/16/19 00:00 24 Mechanical Ventilator 40 02/16/19 00:00 40 02/16/19 00:00 74 02/15/19 23:30 76 21 168/64 (98) 94 02/15/19 23:04 75 24 98 Mechanical Ventilator 40 02/15/19 23:00 75 21 160/62 (94) 96 02/15/19 23:00 24 Mechanical Ventilator 40 02/15/19 23:00 24 Mechanical Ventilator 40 02/15/19 22:57 74 24 97 Mechanical Ventilator 40 02/15/19 22:56 76 24 40 02/15/19 22:30 75 21 160/62 (94) 96 02/15/19 22:00 74 23 167/70 (102) 96 02/15/19 22:00 24 Mechanical Ventilator 40 02/15/19 22:00 24 Mechanical Ventilator 40 02/15/19 21:55 24 40 02/15/19 21:30 74 24 167/70 (102) 96 02/15/19 21:18 77 24 40 02/15/19 21:00 24 Mechanical Ventilator 40 02/15/19 21:00 24 Mechanical Ventilator 40 02/15/19 21:00 77 24 164/71 (102) 96 02/15/19 20:53 74 147/58 02/15/19 20:30 74 24 147/58 (87) 95 02/15/19 20:00 75 02/15/19 20:00 40 02/15/19 20:00 24 Mechanical Ventilator 40 02/15/19 20:00 24 Mechanical Ventilator 40 02/15/19 20:00 Mechanical Ventilator Mechanical Ventilator Mechanical Ventilator 02/15/19 20:00 74 24 145/59 (87) 95 02/15/19 19:30 98.5 79 24 153/65 (94) 96 02/15/19 19:04 73 24 99 Mechanical Ventilator 40 02/15/19 19:00 75 24 144/55 (84) 96 02/15/19 19:00 24 Mechanical Ventilator 40 02/15/19 19:00 24 Mechanical Ventilator 40 02/15/19 18:57 75 24 98 Mechanical Ventilator 40 02/15/19 18:55 75 25 40 02/15/19 18:30 74 24 155/63 (93) 96 02/15/19 18:11 180/66 02/15/19 18:10 180/66 02/15/19 18:00 79 24 162/67 (98) 97 02/15/19 17:30 77 24 151/65 (93) 97 02/15/19 17:00 24 Mechanical Ventilator 40 02/15/19 17:00 24 Mechanical Ventilator 40 02/15/19 17:00 72 24 150/66 (94) 96 02/15/19 16:32 73 24 40 02/15/19 16:30 74 24 162/71 (101) 96 02/15/19 16:00 98.5 81 24 164/69 (100) 98 02/15/19 16:00 81 02/15/19 16:00 24 Mechanical Ventilator 40 02/15/19 16:00 24 Mechanical Ventilator 40 02/15/19 16:00 40 02/15/19 16:00 Mechanical Ventilator Mechanical Ventilator Mechanical Ventilator 02/15/19 15:31 22 Mechanical Ventilator 40 02/15/19 15:30 78 25 165/75 (105) 97 02/15/19 15:00 78 24 150/63 (92) 97 02/15/19 15:00 24 Mechanical Ventilator 40 02/15/19 15:00 24 Mechanical Ventilator 40 02/15/19 14:56 69 24 98 Mechanical Ventilator 40 02/15/19 14:48 73 24 96 Mechanical Ventilator 40 02/15/19 14:48 73 24 40 02/15/19 14:30 75 24 149/73 (98) 97 02/15/19 14:00 24 Mechanical Ventilator 40 02/15/19 14:00 24 Mechanical Ventilator 40 02/15/19 14:00 69 24 143/59 (87) 94 02/15/19 13:30 73 24 143/59 (87) 94 02/15/19 13:01 74 24 40 02/15/19 13:00 23 Mechanical Ventilator 40 02/15/19 13:00 23 Mechanical Ventilator 40 02/15/19 13:00 98.0 82 23 141/59 (86) 95 Intake and Output 02/15/19 02/16/19 18:59 06:59 Intake Total 2900.000 ml 2841.000 ml Output Total 1220 ml 800 ml Balance 1680.000 ml 2041.000 ml Free Water 300 ml IV Total 2120.000 ml 2071.000 ml Tube Feeding 480 ml 650 ml Other 120 ml Output Urine Total 1220 ml 800 ml # Bowel Movements 2 1 Laboratory Tests Test 02/16/19 03:30 02/16/19 05:05 02/16/19 08:08 Stool Occult Blood Negative (NEGATIVE) White Blood Count 7.8 K/UL (4.8-10.8) # Red Blood Count 3.26 M/UL (4.70-6.10) L Hemoglobin 8.9 G/DL (14.2-18.0) L Hematocrit 27.8 % (42.0-52.0) L Mean Corpuscular Volume 85 FL (80-99) Mean Corpuscular Hemoglobin 27.5 PG (27.0-31.0) Mean Corpuscular Hemoglobin Concent 32.1 G/DL (32.0-36.0) Red Cell Distribution Width 18.1 % (11.6-14.8) H Platelet Count 253 K/UL (150-450) Mean Platelet Volume 6.4 FL (6.5-10.1) L Neutrophils (%) (Auto) % (45.0-75.0) Lymphocytes (%) (Auto) % (20.0-45.0) Monocytes (%) (Auto) % (1.0-10.0) Eosinophils (%) (Auto) % (0.0-3.0) Basophils (%) (Auto) % (0.0-2.0) Sodium Level 148 MMOL/L (136-145) H Potassium Level 5.8 MMOL/L (3.5-5.1) H Chloride Level 114 MMOL/L (98-107) H Carbon Dioxide Level 28 MMOL/L (21-32) Anion Gap 6 mmol/L (5-15) Blood Urea Nitrogen 71 mg/dL (7-18) H Creatinine 2.6 MG/DL (0.55-1.30) H Estimat Glomerular Filtration Rate 25.4 mL/min (>60) Glucose Level 269 MG/DL (74-106) H Uric Acid 4.8 MG/DL (2.6-7.2) Calcium Level 7.8 MG/DL (8.5-10.1) L Phosphorus Level 4.6 MG/DL (2.5-4.9) Magnesium Level 2.9 MG/DL (1.8-2.4) H Total Bilirubin 0.2 MG/DL (0.2-1.0) Aspartate Amino Transf (AST/SGOT) 32 U/L (15-37) Alanine Aminotransferase (ALT/SGPT) 51 U/L (12-78) Alkaline Phosphatase 157 U/L (46-116) H C-Reactive Protein, Quantitative 2.2 mg/dL (0.00-0.90) H Pro-B-Type Natriuretic Peptide 5575 pg/mL (0-125) H Total Protein 5.7 G/DL (6.4-8.2) L Albumin 2.0 G/DL (3.4-5.0) L Globulin 3.7 g/dL Albumin/Globulin Ratio 0.5 (1.0-2.7) L Random Vancomycin Level 11.4 ug/mL Arterial Blood pH 7.244 (7.350-7.450) Arterial Blood Partial Pressure CO2 59.1 mmHg (35.0-45.0) *H Arterial Blood Partial Pressure O2 63.4 mmHg (75.0-100.0) L Arterial Blood HCO3 25.0 mmol/L (22.0-26.0) Arterial Blood Oxygen Saturation 87.0 % (95-100) *L Arterial Blood Base Excess -3.0 (-2-2) L Benny Test Positive Objective HEAD AND NECK: No JVD. Orally intubated LUNGS: Coarse rhonchi. CARDIOVASCULAR: Regular S1 and S2 with no gallop or murmur. ABDOMEN: Soft. EXTREMITIES: No pitting edema. Murray Francois MD Feb 16, 2019 12:48
--- NOTE | 2019-02-16 13:00 | NUR ---
NURSE NOTE SEEN BY DR HERRERA,WILL FOLLOW UP NEW ORDERS
--- NOTE | 2019-02-16 14:24 | NUR ---
NURSE NOTES: Patient turned and repositioned.HOb elevated to prevent aspiration.Will continue to monitor
--- NOTE | 2019-02-16 14:43 | NUR ---
CASE MANAGEMENT:REVIEW 02/16/19 SI: MULTILOBAR PNA ACUTE RESPIRATORY FAILURE. NSTEMI. HIV 98.1 74 30 152/78 93% ON VENT SUPPORT @ 50% FIO2 H/H-8.9/27.8 K+5.8 BUN+71 CR+2.6 IS: IVF@100/HR IV SOLUMEDROL Q12 IV DIFLUCAN Q24 IV BACTRIM Q12 IV ZOSYN Q12 FENTANYL GTT VERSED GTT INSULIN SQ Q4HRS ISORDIL NG Q6HRS NORVASC NG QD DUONEB HHN Q4HRS : ICU STATUS
--- NOTE | 2019-02-16 15:40 | Infectious Diseases Prog Note ---
Assessment/Plan Assessment/Plan A) 1) pneumonia - ? etiology, ? CAP, ? pcp, ? fungal (cryptococcus/cocci), possible sepsis now, ARDS 2) intubated on vent, s/p bronchoscopy, ARF, ? 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 Meredith and we both agree that still could be pneumocystis pna and to continue bactrim 4) monitor labs and chest x-ray 5) critical condition, icu supportive care, vent support 6) d/w Dr. Douglas Subjective Constitutional: Denies: fever HEENT: Reports: congestion Respiratory: Reports: shortness of breath Cardiovascular: Denies: chest pain Gastrointestinal/Abdominal: Denies: nausea, vomiting, diarrhea Genitourinary: Reports: other - + smith Psychiatric: Reports: other - NA Skin: Denies: rash Hematologic: Denies: bleeding Musculoskeletal: Reports: other - NA Allergies: Coded Allergies: No Known Allergies (Unverified , 02/05/13) Objective Vital Signs Last 24 Hour Vital Signs Date Time Temp Pulse Resp B/P (MAP) Pulse Ox O2 Delivery O2 Flow Rate FiO2 02/16/19 15:00 30 Mechanical Ventilator 02/16/19 14:45 74 30 50 02/16/19 14:45 74 30 100 Mechanical Ventilator 40 02/16/19 14:00 30 Mechanical Ventilator 02/16/19 14:00 30 Mechanical Ventilator 02/16/19 14:00 71 30 133/65 (87) 96 02/16/19 13:30 71 30 137/68 (91) 95 02/16/19 13:00 72 30 144/70 (94) 95 02/16/19 13:00 30 Mechanical Ventilator 02/16/19 13:00 30 Mechanical Ventilator 02/16/19 12:47 77 30 50 02/16/19 12:41 171/83 02/16/19 12:40 171/83 02/16/19 12:30 75 30 158/75 (102) 94 02/16/19 12:00 84 02/16/19 12:00 98.1 74 30 152/78 (102) 93 02/16/19 12:00 Mechanical Ventilator Mechanical Ventilator Mechanical Ventilator 02/16/19 12:00 30 Mechanical Ventilator 02/16/19 12:00 30 02/16/19 11:30 77 30 156/76 (102) 92 02/16/19 11:16 73 30 98 Mechanical Ventilator 50 02/16/19 11:10 76 30 60 02/16/19 11:10 77 30 97 Mechanical Ventilator 50 02/16/19 11:00 30 Mechanical Ventilator 02/16/19 11:00 30 Mechanical Ventilator 02/16/19 11:00 78 30 156/75 (102) 95 02/16/19 10:30 80 30 147/70 (95) 92 02/16/19 10:00 82 30 146/86 (106) 96 02/16/19 10:00 30 Mechanical Ventilator 02/16/19 10:00 30 02/16/19 09:35 88 154/76 02/16/19 09:33 87 154/64 02/16/19 09:30 86 30 147/78 (101) 91 02/16/19 09:25 79 30 60 02/16/19 09:00 30 Mechanical Ventilator 02/16/19 09:00 30 02/16/19 09:00 92 30 155/70 (98) 91 02/16/19 08:30 96 19 173/82 (112) 100 02/16/19 08:15 100 02/16/19 08:00 29 Mechanical Ventilator 02/16/19 08:00 29 Mechanical Ventilator 02/16/19 08:00 113 19 192/110 (137) 88 02/16/19 08:00 40 02/16/19 08:00 Mechanical Ventilator Mechanical Ventilator Mechanical Ventilator 02/16/19 08:00 110 02/16/19 07:40 72 24 98 Mechanical Ventilator 40 02/16/19 07:30 76 24 40 45 02/16/19 07:30 116 22 192/110 (137) 97 02/16/19 07:30 71 24 97 Mechanical Ventilator 40 02/16/19 07:20 40 02/16/19 07:00 40 02/16/19 07:00 19 Mechanical Ventilator 02/16/19 07:00 19 02/16/19 07:00 98.5 110 24 162/122 (135) 93 02/16/19 06:30 84 22 173/76 (108) 97 02/16/19 06:15 86 23 173/73 (106) 100 02/16/19 06:00 24 Mechanical Ventilator 40 02/16/19 06:00 24 Mechanical Ventilator 40 02/16/19 06:00 80 24 161/67 (98) 96 02/16/19 05:48 171/72 02/16/19 05:47 171/72 02/16/19 05:45 77 22 163/70 (101) 95 02/16/19 05:45 24 Mechanical Ventilator 40 02/16/19 05:35 24 Mechanical Ventilator 40 02/16/19 05:35 24 Mechanical Ventilator 40 02/16/19 05:30 24 Mechanical Ventilator 40 02/16/19 05:30 79 24 171/72 (105) 96 02/16/19 05:15 77 23 167/72 (103) 96 02/16/19 05:15 78 24 40 02/16/19 05:15 24 Mechanical Ventilator 40 02/16/19 05:00 79 24 166/73 (104) 95 02/16/19 05:00 24 Mechanical Ventilator 40 02/16/19 05:00 24 Mechanical Ventilator 40 02/16/19 04:45 74 23 160/67 (98) 94 02/16/19 04:30 78 24 166/74 (104) 96 02/16/19 04:30 24 Mechanical Ventilator 40 02/16/19 04:30 24 Mechanical Ventilator 40 02/16/19 04:27 166/73 02/16/19 04:15 80 25 166/73 (104) 96 02/16/19 04:15 24 Mechanical Ventilator 40 02/16/19 04:15 24 Mechanical Ventilator 40 02/16/19 04:00 40 02/16/19 04:00 Mechanical Ventilator Mechanical Ventilator Mechanical Ventilator 02/16/19 04:00 24 Mechanical Ventilator 40 02/16/19 04:00 24 Mechanical Ventilator 40 02/16/19 04:00 98.6 74 24 158/64 (95) 93 02/16/19 04:00 76 02/16/19 03:45 75 24 156/63 (94) 95 02/16/19 03:30 75 15 154/62 (92) 95 02/16/19 03:24 74 24 98 Mechanical Ventilator 40 02/16/19 03:16 75 24 97 Mechanical Ventilator 40 02/16/19 03:15 76 24 161/67 (98) 98 02/16/19 03:15 77 24 40 02/16/19 03:00 76 15 161/66 (97) 96 02/16/19 03:00 24 Mechanical Ventilator 40 02/16/19 03:00 24 Mechanical Ventilator 40 02/16/19 02:45 82 11 166/73 (104) 95 02/16/19 02:31 85 19 176/77 (110) 96 02/16/19 02:00 24 Mechanical Ventilator 40 02/16/19 02:00 24 Mechanical Ventilator 40 02/16/19 02:00 79 24 170/72 (104) 96 02/16/19 01:40 98.4 02/16/19 01:30 84 21 172/80 (110) 97 02/16/19 01:15 79 24 40 02/16/19 01:10 24 Mechanical Ventilator 40 02/16/19 01:00 76 21 164/97 (119) 95 02/16/19 01:00 24 Mechanical Ventilator 40 02/16/19 01:00 24 Mechanical Ventilator 40 02/16/19 00:45 77 23 166/69 (101) 95 02/16/19 00:30 75 23 159/64 (95) 95 02/16/19 00:06 170/66 02/16/19 00:06 170/66 02/16/19 00:05 24 Mechanical Ventilator 40 02/16/19 00:00 98.4 80 23 170/66 (100) 96 02/16/19 00:00 Mechanical Ventilator Mechanical Ventilator Mechanical Ventilator 02/16/19 00:00 24 Mechanical Ventilator 40 02/16/19 00:00 24 Mechanical Ventilator 40 02/16/19 00:00 40 02/16/19 00:00 74 02/15/19 23:30 76 21 168/64 (98) 94 02/15/19 23:04 75 24 98 Mechanical Ventilator 40 02/15/19 23:00 75 21 160/62 (94) 96 02/15/19 23:00 24 Mechanical Ventilator 40 02/15/19 23:00 24 Mechanical Ventilator 40 02/15/19 22:57 74 24 97 Mechanical Ventilator 40 02/15/19 22:56 76 24 40 02/15/19 22:30 75 21 160/62 (94) 96 02/15/19 22:00 74 23 167/70 (102) 96 02/15/19 22:00 24 Mechanical Ventilator 40 02/15/19 22:00 24 Mechanical Ventilator 40 02/15/19 21:55 24 40 02/15/19 21:30 74 24 167/70 (102) 96 02/15/19 21:18 77 24 40 02/15/19 21:00 24 Mechanical Ventilator 40 02/15/19 21:00 24 Mechanical Ventilator 40 02/15/19 21:00 77 24 164/71 (102) 96 02/15/19 20:53 74 147/58 02/15/19 20:30 74 24 147/58 (87) 95 02/15/19 20:00 75 02/15/19 20:00 40 02/15/19 20:00 24 Mechanical Ventilator 40 02/15/19 20:00 24 Mechanical Ventilator 40 02/15/19 20:00 Mechanical Ventilator Mechanical Ventilator Mechanical Ventilator 02/15/19 20:00 74 24 145/59 (87) 95 02/15/19 19:30 98.5 79 24 153/65 (94) 96 02/15/19 19:04 73 24 99 Mechanical Ventilator 40 02/15/19 19:00 75 24 144/55 (84) 96 02/15/19 19:00 24 Mechanical Ventilator 40 02/15/19 19:00 24 Mechanical Ventilator 40 02/15/19 18:57 75 24 98 Mechanical Ventilator 40 02/15/19 18:55 75 25 40 02/15/19 18:30 74 24 155/63 (93) 96 02/15/19 18:11 180/66 02/15/19 18:10 180/66 02/15/19 18:00 79 24 162/67 (98) 97 02/15/19 17:30 77 24 151/65 (93) 97 02/15/19 17:00 24 Mechanical Ventilator 40 02/15/19 17:00 24 Mechanical Ventilator 40 02/15/19 17:00 72 24 150/66 (94) 96 02/15/19 16:32 73 24 40 6/27/19 16:30 74 24 162/71 (101) 96 02/15/19 16:00 98.5 81 24 164/69 (100) 98 02/15/19 16:00 81 02/15/19 16:00 24 Mechanical Ventilator 40 02/15/19 16:00 24 Mechanical Ventilator 40 02/15/19 16:00 40 02/15/19 16:00 Mechanical Ventilator Mechanical Ventilator Mechanical Ventilator 02/15/19 15:31 22 Mechanical Ventilator 40 02/15/19 15:30 78 25 165/75 (105) 97 Height (Feet): 6 Height (Inches): 0.00 Weight (Pounds): 260 General Appearance: other - sedated, on vent, no pressors, fio2-50% HEENT: normocephalic, no JVD, other - oral - intubated, eyes - covered Respiratory/Chest: crackles/rales, rhonchi - bilaterally Cardiovascular: normal rate, regular rhythm, no gallop/murmur, no JVD Abdomen: hypoactive bowel sounds, distended Genitourinary: other - + smith - urine slt cloudy Extremities: no cyanosis Skin: no rash Neurologic/Psychiatric: other - sedated, weak, on vent Lymphatic: no neck adenopathy Musculoskeletal: no effusion Objective Chest x-ray - 02/10/19 - COMPARISON: Chest radiograph on 02/09/2019 FINDINGS: Hardware: Endotracheal tube terminates in the region of the mid thoracic trachea. Enteric tube courses past the diaphragm and out of the field of view. Lungs/pleura: Slightly decreased but persistent patchy consolidations in the right lung. Slightly decreased left perihilar opacities/consolidations. Possible small bilateral pleural effusions. Heart/mediastinum: Stable mild enlargement of the cardiomediastinal silhouette. Soft tissues: Unremarkable. Bones: No acute fracture. Degenerative changes of the visualized right acromioclavicular joint. Degenerative changes of the spine. Upper abdomen: Normal. 02/11/19 - chest x-ray - IMPRESSION: Slightly decreased but persistent patchy consolidations in the right lung. Slightly decreased left perihilar opacities. Findings may IMPRESSION: 1. No significant change in the interstitial and alveolar opacities in bilateral lungs. 2. Possible small bilateral pleural effusions, unchanged. represent infectious/inflammatory process and/or pulmonary edema. Possible small bilateral pleural effusions. 02/16/19 - chest x-ray - Impression: Worsening of aeration with increasing interstitial and bilateral predominantly perihilar airspace disease. Findings likely related to worsening CHF/pulmonary edema. Superimposed pneumonia to be excluded clinically. Follow-up recommended. Microbiology Date/Time Source Procedure Growth Status 02/06/19 14:15 Blood Blood Culture - Final NO GROWTH AFTER 5 DAYS Complete 02/09/19 14:45 Sputum Expectorated Virus Culture - Preliminary Resulted 02/09/19 14:45 Sputum Expectorated Pneumocystis jiroveci Smear (DFA) - Final Resulted 02/06/19 17:10 Rectal Mucosa - Final NO CARBAPENEM-RESISTANT ENTEROBACTERI... Complete Laboratory Tests Test 02/16/19 03:30 02/16/19 05:05 02/16/19 08:08 Stool Occult Blood Negative (NEGATIVE) White Blood Count 7.8 K/UL (4.8-10.8) # Red Blood Count 3.26 M/UL (4.70-6.10) L Hemoglobin 8.9 G/DL (14.2-18.0) L Hematocrit 27.8 % (42.0-52.0) L Mean Corpuscular Volume 85 FL (80-99) Mean Corpuscular Hemoglobin 27.5 PG (27.0-31.0) Mean Corpuscular Hemoglobin Concent 32.1 G/DL (32.0-36.0) Red Cell Distribution Width 18.1 % (11.6-14.8) H Platelet Count 253 K/UL (150-450) Mean Platelet Volume 6.4 FL (6.5-10.1) L Neutrophils (%) (Auto) % (45.0-75.0) Lymphocytes (%) (Auto) % (20.0-45.0) Monocytes (%) (Auto) % (1.0-10.0) Eosinophils (%) (Auto) % (0.0-3.0) Basophils (%) (Auto) % (0.0-2.0) Sodium Level 148 MMOL/L (136-145) H Potassium Level 5.8 MMOL/L (3.5-5.1) H Chloride Level 114 MMOL/L (98-107) H Carbon Dioxide Level 28 MMOL/L (21-32) Anion Gap 6 mmol/L (5-15) Blood Urea Nitrogen 71 mg/dL (7-18) H Creatinine 2.6 MG/DL (0.55-1.30) H Estimat Glomerular Filtration Rate 25.4 mL/min (>60) Glucose Level 269 MG/DL (74-106) H Uric Acid 4.8 MG/DL (2.6-7.2) Calcium Level 7.8 MG/DL (8.5-10.1) L Phosphorus Level 4.6 MG/DL (2.5-4.9) Magnesium Level 2.9 MG/DL (1.8-2.4) H Total Bilirubin 0.2 MG/DL (0.2-1.0) Aspartate Amino Transf (AST/SGOT) 32 U/L (15-37) Alanine Aminotransferase (ALT/SGPT) 51 U/L (12-78) Alkaline Phosphatase 157 U/L (46-116) H C-Reactive Protein, Quantitative 2.2 mg/dL (0.00-0.90) H Pro-B-Type Natriuretic Peptide 5575 pg/mL (0-125) H Total Protein 5.7 G/DL (6.4-8.2) L Albumin 2.0 G/DL (3.4-5.0) L Globulin 3.7 g/dL Albumin/Globulin Ratio 0.5 (1.0-2.7) L Random Vancomycin Level 11.4 ug/mL Arterial Blood pH 7.244 (7.350-7.450) Arterial Blood Partial Pressure CO2 59.1 mmHg (35.0-45.0) *H Arterial Blood Partial Pressure O2 63.4 mmHg (75.0-100.0) L Arterial Blood HCO3 25.0 mmol/L (22.0-26.0) Arterial Blood Oxygen Saturation 87.0 % (95-100) *L Arterial Blood Base Excess -3.0 (-2-2) L Benny Test Positive Current Medications Medications (Trade) Dose Ordered Sig/Marquis Route PRN Reason Start Time Stop Time Status Last Admin Dose Admin Acetaminophen (Tylenol) 650 mg Q4H PRN ORAL Mild Pain (Pain Scale 1-3) 02/07/19 11:15 03/08/19 17:29 02/07/19 23:01 Acetaminophen/ Butalbital/ Caffeine (Fioricet) 1 tab Q8H PRN ORAL For Headache 02/08/19 17:15 03/10/19 17:14 Albuterol/ Ipratropium (Albuterol/ Ipratropium) 3 ml Q4HRT HHN 02/14/19 23:00 02/19/19 22:59 02/16/19 14:44 Amlodipine Besylate (Norvasc) 10 mg DAILY NG 02/15/19 09:00 03/14/19 15:59 02/16/19 09:33 Aspirin (Ecotrin) 81 mg DAILY ORAL 02/08/19 09:00 03/09/19 08:59 02/16/19 09:33 Atorvastatin Calcium (Lipitor) 40 mg QHS ORAL 02/08/19 21:00 03/10/19 20:59 02/15/19 20:52 Bisacodyl (Dulcolax) 5 mg DAILYPRN PRN ORAL Constipation 02/08/19 17:15 03/10/19 17:14 02/13/19 20:34 Chlorhexidine Gluconate (Jessy-Hex 2%) 1 applic DAILY@2000 TOPIC 02/13/19 20:00 03/15/19 19:59 02/15/19 20:52 Clonidine HCl (Catapres Tab) 0.1 mg Q4H PRN ORAL bp above 165 syst 02/16/19 08:00 03/18/19 07:59 Dextrose 1,000 ml @ 100 mls/hr Q10H IV 02/16/19 08:00 03/18/19 07:59 02/16/19 09:40 Dextrose (Dextrose 50%) 25 ml Q30M PRN IV Hypoglycemia 02/15/19 18:15 03/17/19 18:14 Dextrose (Dextrose 50%) 50 ml Q30M PRN IV Hypoglycemia 02/15/19 18:15 03/17/19 18:14 Docusate Sodium (Colace) 100 mg TID GT 02/12/19 18:00 03/12/19 08:59 02/16/19 12:44 Enoxaparin Sodium (Lovenox) 40 mg Q24H SUBQ 02/07/19 21:00 03/08/19 20:59 02/15/19 20:58 Fentanyl Citrate 2500 mcg/Sodium Chloride 250 ml @ 0 mls/hr Q24H IV 02/13/19 15:45 02/20/19 15:44 02/16/19 01:10 Fluconazole/ Sodium Chloride 100 ml @ 100 mls/hr Q24H IV 02/14/19 18:00 02/21/19 17:59 02/15/19 18:09 Guaifenesin (Mucinex ER) 600 mg TWICE A DAY ORAL 02/07/19 18:00 03/09/19 08:59 02/16/19 09:33 Hydralazine HCl (Apresoline) 25 mg Q4H PRN NG SBP > 160mmHg 02/12/19 16:00 03/08/19 11:14 02/16/19 04:27 Hydralazine HCl (Apresoline) 50 mg Q6HR NG 02/14/19 00:00 03/14/19 17:59 02/16/19 12:41 Insulin Aspart (NovoLOG) EVERY 4 HOURS SUBQ 02/15/19 21:00 03/17/19 20:59 02/16/19 12:46 Insulin Aspart (NovoLOG) 10 units EVERY 4 HOURS SUBQ 02/15/19 21:00 03/17/19 20:59 02/16/19 12:47 Isosorbide Dinitrate (Isordil) 20 mg Q6HR NG 02/15/19 12:00 03/15/19 12:59 02/16/19 12:40 Lansoprazole (Prevacid) 30 mg BID NG 02/12/19 18:00 03/14/19 17:59 02/16/19 09:00 Methylprednisolone Sodium Succinate (Solu-MEDROL) 20 mg EVERY 12 HOURS IVP 02/15/19 21:00 03/12/19 20:59 02/16/19 09:33 Metoprolol Tartrate (Lopressor) 100 mg Q12HR ORAL 02/07/19 21:00 03/08/19 20:59 02/16/19 09:35 Midazolam HCl (Versed 2mg/2ml vial) 1 mg Q2H PRN IVP Agitation 02/13/19 08:45 03/15/19 08:44 02/14/19 05:49 Midazolam HCl 50 mg/Sodium Chloride 100 ml @ 0 mls/hr Q24H IV 02/13/19 15:45 02/20/19 15:44 02/16/19 15:00 Nitroglycerin (Ntg) 0.4 mg Q5M PRN SL Prn Chest Pain 02/07/19 11:00 03/08/19 17:29 02/08/19 07:42 Ondansetron HCl (Zofran) 4 mg Q6H PRN IVP Nausea & Vomiting 02/07/19 11:15 03/08/19 11:14 02/09/19 00:58 Patient Own Medication (Patient's Own Med) 1 ea BID ORAL 02/07/19 18:00 03/09/19 17:59 02/16/19 09:39 Patient Own Medication (Patient's Own Med) 1 ea Q48H ORAL 02/18/19 09:00 03/20/19 08:59 Patient Own Medication (Patient's Own Med) 2 ea DAILY ORAL 02/08/19 09:00 03/10/19 08:59 02/16/19 09:39 Piperacillin Sod/ Tazobactam Sod 3.375 gm/Sodium Chloride 110 ml @ 27.5 mls/hr Q12HR@0600,1800 IVPB 02/11/19 18:00 02/18/19 17:59 02/16/19 05:47 Polyethylene Glycol (Miralax) 17 gm BEDTIME ORAL 02/08/19 21:00 03/10/19 20:59 02/15/19 20:53 Sennosides (Senokot) 8.6 mg DAILY ORAL 02/13/19 12:00 03/15/19 11:59 02/16/19 09:34 Trimethoprim/ Sulfamethoxazole 25 ml/Dextrose 575 ml @ 383.333 mls/hr Q12HR@0000,1200 IV 02/11/19 12:00 02/18/19 11:59 02/16/19 12:41 Vancomycin HCl (Vanco rx to dose) 1 ea DAILY PRN MISC . 02/10/19 19:45 03/12/19 19:44 Russ Tony MD Feb 16, 2019 15:40
--- NOTE | 2019-02-16 16:18 | General Progress Note ---
Assessment/Plan Status: stable Assessment/Plan: 58 y Male admitted to the hospital due to fever, shortness of breath and chest pain. # Multilobar pneumonia in patient with HIV- worse # Acute Hypoxemic respiratory failure # ARDS - improved - Broad sp atbx. Will continue Zosyn, Vancomycin and Azithromycin - Bactrim added for PCP coverage - Droplet precaution -DCed - Oxygen support - ID consult appreciated. AFB, cocci, hystoplasma, legionella, ordered. . - Patient s/p emergent bronchoscopy given florid ARDS - Cont mechanical ventilation, settings per pulmonary - SBT in AM # NSTEMI - EKG with bifascicular block RBB and LAFB, no ST changes. - Trend troponin x3 - ECHO completed with no WMA and preserved EF. Dr. Francois consulted. Consideration for outpatient cath vs possibly myocarditis due to underlying viral infection. No evidence of Takotsubo per TTE. - NGT prn - Pain control with morphine # HIV - Continue HARRT - VL is undetectable per patient report. 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 Objective Last 24 Hour Vital Signs Date Time Temp Pulse Resp B/P (MAP) Pulse Ox O2 Delivery O2 Flow Rate FiO2 02/16/19 16:00 40 02/16/19 16:00 Mechanical Ventilator Mechanical Ventilator Mechanical Ventilator 02/16/19 16:00 98.4 72 30 136/62 (86) 95 02/16/19 15:30 72 30 137/66 (89) 94 02/16/19 15:00 30 Mechanical Ventilator 02/16/19 15:00 30 Mechanical Ventilator 02/16/19 15:00 30 Mechanical Ventilator 02/16/19 15:00 72 30 132/65 (87) 95 02/16/19 14:55 72 30 98 Mechanical Ventilator 40 02/16/19 14:45 74 30 50 02/16/19 14:45 74 30 100 Mechanical Ventilator 40 02/16/19 14:30 71 30 133/66 (88) 96 02/16/19 14:00 30 Mechanical Ventilator 02/16/19 14:00 30 Mechanical Ventilator 02/16/19 14:00 71 30 133/65 (87) 96 02/16/19 13:30 71 30 137/68 (91) 95 02/16/19 13:00 72 30 144/70 (94) 95 02/16/19 13:00 30 Mechanical Ventilator 02/16/19 13:00 30 Mechanical Ventilator 02/16/19 12:47 77 30 50 02/16/19 12:41 171/83 02/16/19 12:40 171/83 02/16/19 12:30 75 30 158/75 (102) 94 02/16/19 12:00 84 02/16/19 12:00 98.1 74 30 152/78 (102) 93 02/16/19 12:00 Mechanical Ventilator Mechanical Ventilator Mechanical Ventilator 02/16/19 12:00 30 Mechanical Ventilator 02/16/19 12:00 30 02/16/19 11:30 77 30 156/76 (102) 92 02/16/19 11:16 73 30 98 Mechanical Ventilator 50 02/16/19 11:10 76 30 60 02/16/19 11:10 77 30 97 Mechanical Ventilator 50 02/16/19 11:00 30 Mechanical Ventilator 02/16/19 11:00 30 Mechanical Ventilator 02/16/19 11:00 78 30 156/75 (102) 95 02/16/19 10:30 80 30 147/70 (95) 92 02/16/19 10:00 82 30 146/86 (106) 96 02/16/19 10:00 30 Mechanical Ventilator 02/16/19 10:00 30 02/16/19 09:35 88 154/76 02/16/19 09:33 87 154/64 02/16/19 09:30 86 30 147/78 (101) 91 02/16/19 09:25 79 30 60 02/16/19 09:00 30 Mechanical Ventilator 02/16/19 09:00 30 02/16/19 09:00 92 30 155/70 (98) 91 02/16/19 08:30 96 19 173/82 (112) 100 02/16/19 08:15 100 02/16/19 08:00 29 Mechanical Ventilator 02/16/19 08:00 29 Mechanical Ventilator 02/16/19 08:00 113 19 192/110 (137) 88 02/16/19 08:00 40 02/16/19 08:00 Mechanical Ventilator Mechanical Ventilator Mechanical Ventilator 02/16/19 08:00 110 02/16/19 07:40 72 24 98 Mechanical Ventilator 40 02/16/19 07:30 76 24 40 45 02/16/19 07:30 116 22 192/110 (137) 97 02/16/19 07:30 71 24 97 Mechanical Ventilator 40 02/16/19 07:20 40 02/16/19 07:00 40 02/16/19 07:00 19 Mechanical Ventilator 02/16/19 07:00 19 02/16/19 07:00 98.5 110 24 162/122 (135) 93 02/16/19 06:30 84 22 173/76 (108) 97 02/16/19 06:15 86 23 173/73 (106) 100 02/16/19 06:00 24 Mechanical Ventilator 40 02/16/19 06:00 24 Mechanical Ventilator 40 02/16/19 06:00 80 24 161/67 (98) 96 02/16/19 05:48 171/72 02/16/19 05:47 171/72 02/16/19 05:45 77 22 163/70 (101) 95 02/16/19 05:45 24 Mechanical Ventilator 40 02/16/19 05:35 24 Mechanical Ventilator 40 02/16/19 05:35 24 Mechanical Ventilator 40 02/16/19 05:30 24 Mechanical Ventilator 40 02/16/19 05:30 79 24 171/72 (105) 96 02/16/19 05:15 77 23 167/72 (103) 96 02/16/19 05:15 78 24 40 02/16/19 05:15 24 Mechanical Ventilator 40 02/16/19 05:00 79 24 166/73 (104) 95 02/16/19 05:00 24 Mechanical Ventilator 40 02/16/19 05:00 24 Mechanical Ventilator 40 02/16/19 04:45 74 23 160/67 (98) 94 02/16/19 04:30 78 24 166/74 (104) 96 02/16/19 04:30 24 Mechanical Ventilator 40 02/16/19 04:30 24 Mechanical Ventilator 40 02/16/19 04:27 166/73 02/16/19 04:15 80 25 166/73 (104) 96 02/16/19 04:15 24 Mechanical Ventilator 40 02/16/19 04:15 24 Mechanical Ventilator 40 02/16/19 04:00 40 02/16/19 04:00 Mechanical Ventilator Mechanical Ventilator Mechanical Ventilator 02/16/19 04:00 24 Mechanical Ventilator 40 02/16/19 04:00 24 Mechanical Ventilator 40 02/16/19 04:00 98.6 74 24 158/64 (95) 93 02/16/19 04:00 76 02/16/19 03:45 75 24 156/63 (94) 95 02/16/19 03:30 75 15 154/62 (92) 95 02/16/19 03:24 74 24 98 Mechanical Ventilator 40 02/16/19 03:16 75 24 97 Mechanical Ventilator 40 02/16/19 03:15 76 24 161/67 (98) 98 02/16/19 03:15 77 24 40 02/16/19 03:00 76 15 161/66 (97) 96 02/16/19 03:00 24 Mechanical Ventilator 40 02/16/19 03:00 24 Mechanical Ventilator 40 02/16/19 02:45 82 11 166/73 (104) 95 02/16/19 02:31 85 19 176/77 (110) 96 02/16/19 02:00 24 Mechanical Ventilator 40 02/16/19 02:00 24 Mechanical Ventilator 40 02/16/19 02:00 79 24 170/72 (104) 96 02/16/19 01:40 98.4 02/16/19 01:30 84 21 172/80 (110) 97 02/16/19 01:15 79 24 40 02/16/19 01:10 24 Mechanical Ventilator 40 02/16/19 01:00 76 21 164/97 (119) 95 02/16/19 01:00 24 Mechanical Ventilator 40 02/16/19 01:00 24 Mechanical Ventilator 40 02/16/19 00:45 77 23 166/69 (101) 95 02/16/19 00:30 75 23 159/64 (95) 95 02/16/19 00:06 170/66 02/16/19 00:06 170/66 02/16/19 00:05 24 Mechanical Ventilator 40 02/16/19 00:00 98.4 80 23 170/66 (100) 96 02/16/19 00:00 Mechanical Ventilator Mechanical Ventilator Mechanical Ventilator 02/16/19 00:00 24 Mechanical Ventilator 40 02/16/19 00:00 24 Mechanical Ventilator 40 02/16/19 00:00 40 02/16/19 00:00 74 02/15/19 23:30 76 21 168/64 (98) 94 02/15/19 23:04 75 24 98 Mechanical Ventilator 40 02/15/19 23:00 75 21 160/62 (94) 96 02/15/19 23:00 24 Mechanical Ventilator 40 02/15/19 23:00 24 Mechanical Ventilator 40 02/15/19 22:57 74 24 97 Mechanical Ventilator 40 02/15/19 22:56 76 24 40 02/15/19 22:30 75 21 160/62 (94) 96 02/15/19 22:00 74 23 167/70 (102) 96 02/15/19 22:00 24 Mechanical Ventilator 40 02/15/19 22:00 24 Mechanical Ventilator 40 02/15/19 21:55 24 40 02/15/19 21:30 74 24 167/70 (102) 96 02/15/19 21:18 77 24 40 02/15/19 21:00 24 Mechanical Ventilator 40 02/15/19 21:00 24 Mechanical Ventilator 40 02/15/19 21:00 77 24 164/71 (102) 96 02/15/19 20:53 74 147/58 02/15/19 20:30 74 24 147/58 (87) 95 02/15/19 20:00 75 02/15/19 20:00 40 02/15/19 20:00 24 Mechanical Ventilator 40 02/15/19 20:00 24 Mechanical Ventilator 40 02/15/19 20:00 Mechanical Ventilator Mechanical Ventilator Mechanical Ventilator 02/15/19 20:00 74 24 145/59 (87) 95 02/15/19 19:30 98.5 79 24 153/65 (94) 96 02/15/19 19:04 73 24 99 Mechanical Ventilator 40 02/15/19 19:00 75 24 144/55 (84) 96 02/15/19 19:00 24 Mechanical Ventilator 40 02/15/19 19:00 24 Mechanical Ventilator 40 02/15/19 18:57 75 24 98 Mechanical Ventilator 40 02/15/19 18:55 75 25 40 02/15/19 18:30 74 24 155/63 (93) 96 02/15/19 18:11 180/66 02/15/19 18:10 180/66 02/15/19 18:00 79 24 162/67 (98) 97 02/15/19 17:30 77 24 151/65 (93) 97 02/15/19 17:00 24 Mechanical Ventilator 40 02/15/19 17:00 24 Mechanical Ventilator 40 02/15/19 17:00 72 24 150/66 (94) 96 02/15/19 16:32 73 24 40 02/15/19 16:30 74 24 162/71 (101) 96 Intake and Output 02/15/19 02/16/19 18:59 06:59 Intake Total 2900.000 ml 2841.000 ml Output Total 1220 ml 800 ml Balance 1680.000 ml 2041.000 ml Free Water 300 ml IV Total 2120.000 ml 2071.000 ml Tube Feeding 480 ml 650 ml Other 120 ml Output Urine Total 1220 ml 800 ml # Bowel Movements 2 1 Laboratory Tests 02/16/19 03:30: Stool Occult Blood Negative 02/16/19 05:05: White Blood Count 7.8#, Red Blood Count 3.26L, Hemoglobin 8.9L, Hematocrit 27.8L , Mean Corpuscular Volume 85, Mean Corpuscular Hemoglobin 27.5, Mean Corpuscular Hemoglobin Concent 32.1, Red Cell Distribution Width 18.1H, Platelet Count 253, Mean Platelet Volume 6.4L, Neutrophils (%) (Auto) , Lymphocytes (%) (Auto) , Monocytes (%) (Auto) , Eosinophils (%) (Auto) , Basophils (%) (Auto) , Sodium Level 148H, Potassium Level 5.8H, Chloride Level 114H, Carbon Dioxide Level 28, Anion Gap 6, Blood Urea Nitrogen 71H, Creatinine 2.6H, Estimat Glomerular Filtration Rate 25.4, Glucose Level 269H, Uric Acid 4.8 , Calcium Level 7.8L, Phosphorus Level 4.6, Magnesium Level 2.9H, Total Bilirubin 0.2, Aspartate Amino Transf (AST/SGOT) 32, Alanine Aminotransferase ( ALT/SGPT) 51, Alkaline Phosphatase 157H, C-Reactive Protein, Quantitative 2.2H, Pro-B-Type Natriuretic Peptide 5575H, Total Protein 5.7L, Albumin 2.0L, Globulin 3.7, Albumin/Globulin Ratio 0.5L, Random Vancomycin Level 11.4 02/16/19 08:08: Arterial Blood pH 7.244*L, Arterial Blood Partial Pressure CO2 59.1*H, Arterial Blood Partial Pressure O2 63.4L, Arterial Blood HCO3 25.0, Arterial Blood Oxygen Saturation 87.0*L, Arterial Blood Base Excess -3.0L, Benny Test Positive Height (Feet): 6 Height (Inches): 0.00 Weight (Pounds): 260 Objective General Appearance: Intubated, sedated. 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
--- NOTE | 2019-02-16 16:38 | NUR ---
NURSE NOTES: Patient seen by Dr Lehman, will follow up new order.Mouth care done,ADLS completed,kept clean dry and comfortable.Kept HOB elevated to prevent aspiration.Call light within easy reach.Will continue to monitor
[2019-02-16] MEDS: Piperacillin/Tazobactam 3.375 GM in NS 110 ML IVPB SCH (17:28)
--- NOTE | 2019-02-16 18:17 | NUR ---
NURSE NOTES: ADLS done,mouth care performed,turned and repositioned.HOB elevated to prevent aspiration.Call light within easy reach.Will continue to monitor
--- NOTE | 2019-02-16 19:18 | NUR ---
RESPIRATORY NOTE: Received pt on AC 30, 550VT, 40%, PEEP +5. Pt intubated w/ ETT 7.5 @ 25cm lipline, secured by anchorfast. Pt sedated. B/S elina. diminished, sxn minimal amounts of thick, pale-yellow secretions w/ occasional red specks. Bite block in place as pt tends to bite down ETT. Both hands on soft restraints to prevent pr from self-extubation. Vent plugged into red outlet, ambubag at bedside. Pt in no apparent distress at this time. Will continue to monitor pt.
--- NOTE | 2019-02-16 19:19 | NUR ---
HAND-OFF: Report given to TESSA Bernstein.
[2019-02-16] MEDS: Dyna-Hex 2% Top Sol 2oz TOPIC SCH (19:44)
--- NOTE | 2019-02-16 19:50 | NUR ---
NURSE NOTES: PATIENT ON SEDATED BUT RESTLESS WHEN TOUCH , ON ETT TO VENT, AC 30/TV 550/FIO2 40%/PEEP 5, O2 SATURATION OVER 97% NOTED, OGT TUBE INTACT AND PATENT, ONGOING NEPRO AT 43ML/HR, RESIDUE 30ML NOTED, ABDOMEN DISTENDED, NON TENDER, KEPT HOB OVER 30 DEGREES, F/C INTACT AND PATENT, YELLOW URINE OUTED, JOAN CATH WITH PIG TAIL TO LEFT FEMORAL AND PERIPHERAL LINE TO LEFT WRIST, INTACT AND PATENT, ONGOING D5W AT 100ML/HR VIA PERIPHERAL LINE, FENTANYL DRIP 100MCG/HR AND VERSED DRIP 10MG/HR VIA JOAN W/ PIG TAIL STATU, 2 POINT SOFT RESTRAINT STATUS, SCD'S TO BOTH LOWER LEGS, MADE LOWER BED POSITION AND PROVIDED CALL LIGHT WITHIN REACH, WILL CONTINUE TO MONITOR.
[2019-02-16] MEDS: Atorvastatin 20mg tab ORAL SCH (20:41)
[2019-02-16] MEDS: Miralax 17gm pkt ORAL SCH (20:41)
[2019-02-16] MEDS: Enoxaparin 40mg Inj SUBQ SCH (20:42)
--- NOTE | 2019-02-16 22:10 | NUR ---
NURSE NOTES: REPOSITIONED, ORAL CARE WAS DONE.
--- NOTE | 2019-02-16 23:24 | Neurology Progress Note ---
Interim History Interim History ROS Limited/Unobtainable: Yes Complaints: AMS Events: This Visit was performed on February 16, [address] Mayito Escobar. Interim History Weaning not successful due to ongoing agitation when sedation is turned down. Also awaiting possible dialysis due to Renal failure. Review of Systems All Systems: reviewed and negative except above Objective Physical Exam Last Vital Signs Date Time Temp Pulse Resp B/P (MAP) Pulse Ox O2 Delivery O2 Flow Rate FiO2 02/16/19 23:00 67 30 164/66 (98) 96 02/16/19 23:00 Mechanical Ventilator 40 02/16/19 20:00 98.7 02/14/19 17:39 50.0 Laboratory Tests Test 02/16/19 03:30 02/16/19 05:05 02/16/19 08:08 Stool Occult Blood Negative (NEGATIVE) White Blood Count 7.8 K/UL (4.8-10.8) # Red Blood Count 3.26 M/UL (4.70-6.10) L Hemoglobin 8.9 G/DL (14.2-18.0) L Hematocrit 27.8 % (42.0-52.0) L Mean Corpuscular Volume 85 FL (80-99) Mean Corpuscular Hemoglobin 27.5 PG (27.0-31.0) Mean Corpuscular Hemoglobin Concent 32.1 G/DL (32.0-36.0) Red Cell Distribution Width 18.1 % (11.6-14.8) H Platelet Count 253 K/UL (150-450) Mean Platelet Volume 6.4 FL (6.5-10.1) L Neutrophils (%) (Auto) % (45.0-75.0) Lymphocytes (%) (Auto) % (20.0-45.0) Monocytes (%) (Auto) % (1.0-10.0) Eosinophils (%) (Auto) % (0.0-3.0) Basophils (%) (Auto) % (0.0-2.0) Sodium Level 148 MMOL/L (136-145) H Potassium Level 5.8 MMOL/L (3.5-5.1) H Chloride Level 114 MMOL/L (98-107) H Carbon Dioxide Level 28 MMOL/L (21-32) Anion Gap 6 mmol/L (5-15) Blood Urea Nitrogen 71 mg/dL (7-18) H Creatinine 2.6 MG/DL (0.55-1.30) H Estimat Glomerular Filtration Rate 25.4 mL/min (>60) Glucose Level 269 MG/DL (74-106) H Uric Acid 4.8 MG/DL (2.6-7.2) Calcium Level 7.8 MG/DL (8.5-10.1) L Phosphorus Level 4.6 MG/DL (2.5-4.9) Magnesium Level 2.9 MG/DL (1.8-2.4) H Total Bilirubin 0.2 MG/DL (0.2-1.0) Aspartate Amino Transf (AST/SGOT) 32 U/L (15-37) Alanine Aminotransferase (ALT/SGPT) 51 U/L (12-78) Alkaline Phosphatase 157 U/L (46-116) H C-Reactive Protein, Quantitative 2.2 mg/dL (0.00-0.90) H Pro-B-Type Natriuretic Peptide 5575 pg/mL (0-125) H Total Protein 5.7 G/DL (6.4-8.2) L Albumin 2.0 G/DL (3.4-5.0) L Globulin 3.7 g/dL Albumin/Globulin Ratio 0.5 (1.0-2.7) L Random Vancomycin Level 11.4 ug/mL Arterial Blood pH 7.244 (7.350-7.450) Arterial Blood Partial Pressure CO2 59.1 mmHg (35.0-45.0) *H Arterial Blood Partial Pressure O2 63.4 mmHg (75.0-100.0) L Arterial Blood HCO3 25.0 mmol/L (22.0-26.0) Arterial Blood Oxygen Saturation 87.0 % (95-100) *L Arterial Blood Base Excess -3.0 (-2-2) L Benny Test Positive General: well developed, other Head: normocophalic, other Neck: no rigidity, other EENT: other Neurologic Exam Mental Status: other Speech: other Language: other Cranial Nerve II: other Cranial Nerves III, IV, : other Cranial Nerve V: other Cranial Nerve VII: other Cranial Nerve VIII: other Cranial Nerve IX: other Cranial Nerve XI: other Cranial Nerve XII: other Motor System: other Sensory: other Coordination: other Deep Tendon Reflexes: 0 bicep (L), 0 bicep (R), 0 tricep (L), 0 tricep (R), 0 brachioradialis (L), 0 brachioradialis (R), 0 knee (L), 0 knee (R), 0 ankle (L) , 0 ankle (R) Reflexes: mute plantar (L), mute plantar (R) Stance: other Gait: other Objective Diffuse anasarca, patient aroused easily when sedation is paused. PARKER x 4, AG but not to command at this time. 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 (33) acute small R pontomedullary and left cerebellar peduncle strokes. 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 SBP<140 HD as needed prior to weaning vent- likely toxic encephalopathy Na 135-145 - may add water to enteral feeding to resolve this Charlee Whittington N.P. Feb 16, 2019 23:24
[2019-02-17] VITALS (50 sets, daily range): BP systolic 134–234; BP diastolic 56–171
--- NOTE | 2019-02-17 | NUR ---
NURSE NOTES: RELEASED RESTRAINTS AND REAPPLIED FOR SAFETY, WILL CONTINUE TO MONITOR.
[2019-02-17] MEDS: NovoLOG Insulin Flexpen SUBQ SCH ×12 (00:38→20:45)
[2019-02-17] MEDS: Midazolam for drip 50 MG in NS 90 ML IV SCH ×4 (01:36→20:08)
--- NOTE | 2019-02-17 02:26 | NUR ---
NURSE NOTES: PATIENT ASLEEP STATUS, KEPT RASS SCORE -2 PER PROTOCOLS, WILL CONTINUE PLAN OF CARE.
[2019-02-17] MEDS: Albuterol/Ipratropium 3ml neb HHN SCH ×6 (03:27→23:15)
--- NOTE | 2019-02-17 04:00 | NUR ---
NURSE NOTES: MORNING CARE WAS DONE, PATIENT AGITATED, RESISTANCE TO CARE, DARK GREENISH SOFT BOWEL MOVEMENT STATUS, WILL CONTINUE TO MONITOR.
[2019-02-17] MEDS: HydrALAZINE 25mg tab NG PRN (04:59)
--- NOTE | 2019-02-17 04:59 | NUR ---
NURSE NOTES: BP 192/77 NOTED, GIVEN APRESOLINE 25MG VIA OGT PRN ORDERED, MADE HOB OVER 45 DEGREES, WILL CONTINUE TO MONITOR.
[2019-02-17] MEDS: HydrALAZINE 50mg tab NG SCH ×4 (05:33→23:33)
[2019-02-17] MEDS: Piperacillin/Tazobactam 3.375 GM in NS 110 ML IVPB SCH ×2 (05:35→17:53)
--- NOTE | 2019-02-17 06:15 | NUR ---
NURSE NOTES: PATIENT SLEEPING STATUS, VSS STABLE AT THIS TIME.
[2019-02-17 06:23] LABS: BASOPHILS % (AUTO) 0.4 % (0.0-2.0); EOSINOPHILS % (AUTO) 0.4 % (0.0-3.0); HEMATOCRIT 27.1 % (42.0-52.0); HEMOGLOBIN 8.7 G/DL (14.2-18.0); LYMPHOCYTES % (AUTO) 9.6 % (20.0-45.0); MEAN CORPUSCULAR VOLUME 87 FL (80-99); MONOCYTES % (AUTO) 8.4 % (1.0-10.0); NEUTROPHILS % (AUTO) 81.3 % (45.0-75.0); PLATELET COUNT 245 K/UL (150-450); RED BLOOD COUNT 3.11 M/UL (4.70-6.10); RED CELL DISTRIBUTION WIDTH 17.6 % (11.6-14.8)
--- NOTE | 2019-02-17 07:03 | NUR ---
RESPIRATORY NOTE: Patient received mechanically ventilated on PB 840 with current ordered vent settings. Patient is orally intubated with 7.5 ETT tube and 25cm at the lip line that is secured with an anchor fast. Vent alarms are functional and audible. There is an ambu bag available at the bedside and the vent is connected to a red outlet. Will continue to monitor.
--- NOTE | 2019-02-17 07:10 | NUR ---
HAND-OFF: Report given to TESSA BURTON.
--- NOTE | 2019-02-17 07:11 | NUR ---
NURSE NOTES: RECEIVED PATIENT FROM Kei LANCE RN. PATIENT IS LYING IN BED WITH EYES CLOSED. ORALLY INTUBATED, ETT 7.5 AT 25CM LIP LINE. VENT SETTINGS AC 30, TV 550, FiO2 40%, PEEP 5. NO SIGNS OF DISTRESS. NOTED OGT, GTF RUNNING NEPRO AT 43ML/HR. GARVIN CONNECTED TO BAG, PATENT AND DRAINING URINE. ON BILATERAL SOFT WRIST RESTRAINTS. NOTED PULLING OBJECTS. NOTED SCROTAL REDNESS/SWELLING. SKIN ALTERATION NOTED. WITH R FEMORAL JOAN CATH WITH PIGTAIL AND LEFT WRIST G20 WITH IVF RUNNING D5W AT 100ML. WITH FENTANYL DRIP AT 180MCG/HR AND VERSED DRIP AT 8M/HR FOLLOWING HOSPITAL PROTOCOL ON DRIPS. CALL LIGHT WITHIN REACH. SIDE RAILS UP. BED AT LOWEST POSITION. WILL CONTINUE TO MONITOR.
[2019-02-17 07:47] LABS: ALANINE AMINOTRANSFERASE 46 U/L (12-78); ALBUMIN 1.9 G/DL (3.4-5.0); ALBUMIN/GLOBULIN RATIO 0.6 (1.0-2.7); ALKALINE PHOSPHATASE 139 U/L (46-116); ANION GAP 9 mmol/L (5-15); ASPARTATE AMINO TRANSFERASE 36 U/L (15-37); BILIRUBIN,TOTAL 0.2 MG/DL (0.2-1.0); BLOOD UREA NITROGEN 67 mg/dL (7-18); CALCIUM 7.9 MG/DL (8.5-10.1); CARBON DIOXIDE 25 MMOL/L (21-32); CHLORIDE 108 MMOL/L (98-107); CREATININE 2.5 MG/DL (0.55-1.30); PHOSPHORUS 3.7 MG/DL (2.5-4.9); POTASSIUM 4.3 MMOL/L (3.5-5.1); SODIUM 142 MMOL/L (136-145)
[2019-02-17] MEDS: Solu-MEDROL 40mg Inj IVP SCH ×2 (08:15→20:42)
[2019-02-17] MEDS: guaiFENesin ER 600mg tab ORAL SCH ×2 (08:15→17:54)
[2019-02-17] MEDS: Aspirin EC 81mg tab ORAL SCH (08:16)
[2019-02-17] MEDS: Docusate 100mg/10ml Liq GT SCH ×3 (08:17→17:54)
[2019-02-17] MEDS: Sennosides 8.6mg tab ORAL SCH (08:17)
--- NOTE | 2019-02-17 09:19 | Hematology/Onc Progress Note ---
Assessment/Plan Assessment/Plan ASSESSMENT AND RECOMMENDATIONS # Anemia of chronic disease due to underlying chronic medical issues, multifactorial --> Anemia workup has been reviewed. Ferritin 182 --> No evidence of hemolysis is noted, peripheral smear has been reviewed. --> Hgb goal >7. Transfuse prn. --> Epogen or iron at this time is not particularly indicated --> Medications have been reviewed --> Stool OB negative --> bone marrow biopsy is not indicated given the other more likely causes --> Blood tx: 1 unit on 02/10/19, --> Hgb trend: 7.6-->8.2-->9.4-->8.4-->8.2 -->8.9 # Thrombocytopenia - potential causes multifactorial, likely related to HIV status --> Hep panel pending and HIV confirmed positive --> US abd to evaluate for cirrhosis and hsm ordered --> Peripheral smear ordered to evaluate for blasts /schistocytes --> abx and other meds have been reviewed --> ok for ppx if plt >50k w/ either heparin or lovenox --> Transfuse if Plt < 20k and fever, or if Plt < 10k without fever --> Plt trend: 153-->257-->224-->205-->253 --> WILLIAM screen negative # Multilobar pneumonia in patient with HIV. Recs per ID. --> Broad sp atbx started. Continue Zosyn, Vancomycin and Azithromycin --> Droplet precaution # Hypoxemic respiratory failure. Pulm is following, appreciate recs. --> Bipap as needed, transition to O2 via NC when able --> Due to pneumonia, on abx # Chest pain. 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 --> Trend troponin x3 --> NGT prn # HIV. --> Continue HARRT --> VL is undetectable per patient report. # HTN --> Resume home medication # DVT and GI ppx The time the note is entered does not reflect the time the patient was examined. I greatly appreciate the consultation. Subjective Allergies: Coded Allergies: No Known Allergies (Unverified , 02/05/13) Subjective 02/11: Hgb yesterday was 7.6, s/p 1 unit prbc. Current hgb at 8.2. Pt attempted to pull out tubes per nursing team, soft restraints applied. 02/13: Pt in ICU and intubated. Pt currently sedated. Current hgb 9.4. 02/14: Pt remains in icu, sedated. Hgb stable. 02/15: Remains in icu, lethargic. No acute events. Hgb stable. 02/16: Remains in icu. CXR today shows worsening CHF/pulmonary edema. Pt wake and sedation decrease for weaning. Objective Objective Current Medications Medications (Trade) Dose Ordered Sig/Marquis Route PRN Reason Start Time Stop Time Status Last Admin Dose Admin Acetaminophen (Tylenol) 650 mg Q4H PRN ORAL Mild Pain (Pain Scale 1-3) 02/07/19 11:15 03/08/19 17:29 02/07/19 23:01 Acetaminophen/ Butalbital/ Caffeine (Fioricet) 1 tab Q8H PRN ORAL For Headache 02/08/19 17:15 03/10/19 17:14 Albuterol/ Ipratropium (Albuterol/ Ipratropium) 3 ml Q4HRT HHN 02/14/19 23:00 02/19/19 22:59 02/17/19 07:02 Amlodipine Besylate (Norvasc) 10 mg DAILY NG 02/15/19 09:00 03/14/19 15:59 02/17/19 08:15 Aspirin (Ecotrin) 81 mg DAILY ORAL 02/08/19 09:00 03/09/19 08:59 02/17/19 08:16 Atorvastatin Calcium (Lipitor) 40 mg QHS ORAL 02/08/19 21:00 03/10/19 20:59 02/16/19 20:41 Bisacodyl (Dulcolax) 5 mg DAILYPRN PRN ORAL Constipation 02/08/19 17:15 03/10/19 17:14 02/13/19 20:34 Chlorhexidine Gluconate (Jessy-Hex 2%) 1 applic DAILY@1999 TOPIC 02/13/19 20:00 03/15/19 19:59 02/16/19 19:44 Clonidine HCl (Catapres Tab) 0.1 mg Q4H PRN ORAL bp above 165 syst 02/16/19 08:00 03/18/19 07:59 02/17/19 03:05 Dextrose 1,000 ml @ 100 mls/hr Q10H IV 02/16/19 08:00 03/18/19 07:59 02/17/19 04:42 Dextrose (Dextrose 50%) 25 ml Q30M PRN IV Hypoglycemia 02/15/19 18:15 03/17/19 18:14 Dextrose (Dextrose 50%) 50 ml Q30M PRN IV Hypoglycemia 02/15/19 18:15 03/17/19 18:14 Docusate Sodium (Colace) 100 mg TID GT 02/12/19 18:00 03/12/19 08:59 02/16/19 17:29 Enoxaparin Sodium (Lovenox) 40 mg Q24H SUBQ 02/07/19 21:00 03/08/19 20:59 02/16/19 20:42 Fentanyl Citrate 2500 mcg/Sodium Chloride 250 ml @ 0 mls/hr Q24H IV 02/13/19 15:45 02/20/19 15:44 02/16/19 22:27 Fluconazole/ Sodium Chloride 100 ml @ 100 mls/hr Q24H IV 02/14/19 18:00 02/21/19 17:59 02/16/19 17:28 Guaifenesin (Mucinex ER) 600 mg TWICE A DAY ORAL 02/07/19 18:00 03/09/19 08:59 02/17/19 08:15 Hydralazine HCl (Apresoline) 25 mg Q4H PRN NG SBP > 160mmHg 02/12/19 16:00 03/08/19 11:14 02/17/19 04:59 Hydralazine HCl (Apresoline) 50 mg Q6HR NG 02/14/19 00:00 03/14/19 17:59 02/17/19 05:33 Insulin Aspart (NovoLOG) EVERY 4 HOURS SUBQ 02/15/19 21:00 03/17/19 20:59 02/17/19 08:35 Insulin Aspart (NovoLOG) 10 units EVERY 4 HOURS SUBQ 02/15/19 21:00 03/17/19 20:59 02/17/19 08:36 Isosorbide Dinitrate (Isordil) 20 mg Q6HR NG 02/15/19 12:00 03/15/19 12:59 02/17/19 05:33 Lansoprazole (Prevacid) 30 mg BID NG 02/12/19 18:00 03/14/19 17:59 02/17/19 08:15 Methylprednisolone Sodium Succinate (Solu-MEDROL) 20 mg EVERY 12 HOURS IVP 02/15/19 21:00 03/12/19 20:59 02/17/19 08:15 Metoprolol Tartrate (Lopressor) 100 mg Q12HR ORAL 02/07/19 21:00 03/08/19 20:59 02/17/19 08:16 Midazolam HCl (Versed 2mg/2ml vial) 1 mg Q2H PRN IVP Agitation 02/13/19 08:45 03/15/19 08:44 02/14/19 05:49 Midazolam HCl 50 mg/Sodium Chloride 100 ml @ 0 mls/hr Q24H IV 02/13/19 15:45 02/20/19 15:44 02/17/19 08:11 Nitroglycerin (Ntg) 0.4 mg Q5M PRN SL Prn Chest Pain 02/07/19 11:00 03/08/19 17:29 02/08/19 07:42 Ondansetron HCl (Zofran) 4 mg Q6H PRN IVP Nausea & Vomiting 02/07/19 11:15 03/08/19 11:14 02/09/19 00:58 Patient Own Medication (Patient's Own Med) 1 ea BID ORAL 02/07/19 18:00 03/09/19 17:59 02/16/19 17:34 Patient Own Medication (Patient's Own Med) 1 ea Q48H ORAL 02/18/19 09:00 03/20/19 08:59 Patient Own Medication (Patient's Own Med) 2 ea DAILY ORAL 02/08/19 09:00 03/10/19 08:59 02/16/19 09:39 Piperacillin Sod/ Tazobactam Sod 3.375 gm/Sodium Chloride 110 ml @ 27.5 mls/hr Q12HR@0600,1800 IVPB 02/16/19 18:00 02/23/19 17:59 02/17/19 05:35 Polyethylene Glycol (Miralax) 17 gm BEDTIME ORAL 02/08/19 21:00 03/10/19 20:59 02/16/19 20:41 Sennosides (Senokot) 8.6 mg DAILY ORAL 02/13/19 12:00 03/15/19 11:59 02/16/19 09:34 Trimethoprim/ Sulfamethoxazole 25 ml/Dextrose 575 ml @ 383.333 mls/hr Q12HR@0000,1200 IV 02/17/19 00:00 02/23/19 23:59 02/16/19 23:36 Vancomycin HCl (Vanco rx to dose) 1 ea DAILY PRN MISC . 02/10/19 19:45 03/12/19 19:44 Last 24 Hour Vital Signs Date Time Temp Pulse Resp B/P (MAP) Pulse Ox O2 Delivery O2 Flow Rate FiO2 02/17/19 08:56 71 30 40 02/17/19 08:16 69 154/69 02/17/19 08:15 69 154/61 02/17/19 08:11 30 Mechanical Ventilator 40 02/17/19 08:00 40 02/17/19 08:00 98.5 69 30 154/68 (96) 97 02/17/19 07:12 72 30 100 Mechanical Ventilator 40 02/17/19 07:02 67 30 98 Mechanical Ventilator 40 02/17/19 07:00 72 30 162/71 (101) 98 02/17/19 07:00 30 Mechanical Ventilator 40 02/17/19 06:52 67 30 40 02/17/19 06:30 69 30 152/65 (94) 97 02/17/19 06:00 30 Mechanical Ventilator 40 02/17/19 06:00 70 30 144/59 (87) 97 02/17/19 05:33 162/74 02/17/19 05:33 162/74 02/17/19 05:30 72 30 162/70 (100) 100 02/17/19 05:26 74 30 40 02/17/19 05:00 79 25 188/87 (120) 99 02/17/19 05:00 30 Mechanical Ventilator 40 02/17/19 04:59 192/77 02/17/19 04:45 30 Mechanical Ventilator 40 02/17/19 04:30 85 30 192/84 (120) 99 02/17/19 04:30 30 Mechanical Ventilator 40 02/17/19 04:00 98.0 78 30 184/84 (117) 97 02/17/19 04:00 Mechanical Ventilator Mechanical Ventilator Mechanical Ventilator 02/17/19 04:00 30 Mechanical Ventilator 40 02/17/19 04:00 40 02/17/19 03:37 71 30 98 Mechanical Ventilator 40 02/17/19 03:31 71 02/17/19 03:30 72 30 172/72 (105) 99 02/17/19 03:27 70 30 97 Mechanical Ventilator 40 02/17/19 03:26 70 30 40 02/17/19 03:05 166/67 02/17/19 03:00 69 30 166/66 (99) 97 02/17/19 03:00 30 Mechanical Ventilator 40 02/17/19 02:30 70 30 167/67 (100) 97 02/17/19 02:15 30 Mechanical Ventilator 40 02/17/19 02:00 70 30 167/69 (101) 96 02/17/19 02:00 30 Mechanical Ventilator 40 02/17/19 01:45 30 Mechanical Ventilator 40 02/17/19 01:36 30 Mechanical Ventilator 40 02/17/19 01:30 72 30 171/73 (105) 97 02/17/19 01:10 69 30 40 02/17/19 01:00 30 Mechanical Ventilator 40 02/17/19 01:00 69 30 161/86 (111) 96 02/17/19 00:30 68 30 163/70 (101) 95 02/17/19 00:00 97.4 68 30 159/66 (97) 96 02/17/19 00:00 30 Mechanical Ventilator 40 02/17/19 00:00 40 02/17/19 00:00 Mechanical Ventilator Mechanical Ventilator Mechanical Ventilator 02/16/19 23:49 68 02/16/19 23:38 75 30 100 Mechanical Ventilator 40 02/16/19 23:36 168/68 02/16/19 23:36 168/68 02/16/19 23:30 68 30 168/68 (101) 98 02/16/19 23:28 67 30 97 Mechanical Ventilator 40 02/16/19 23:27 67 30 40 02/16/19 23:00 67 30 164/66 (98) 96 02/16/19 23:00 30 Mechanical Ventilator 40 02/16/19 22:55 167/47 02/16/19 22:30 68 30 167/67 (100) 96 02/16/19 22:27 30 Mechanical Ventilator 40 02/16/19 22:00 68 30 161/65 (97) 97 02/16/19 22:00 30 Mechanical Ventilator 40 02/16/19 21:30 70 30 160/64 (96) 98 02/16/19 21:17 30 40 02/16/19 21:00 76 30 163/65 (97) 99 02/16/19 21:00 30 Mechanical Ventilator 40 02/16/19 20:55 82 30 40 02/16/19 20:45 78 30 165/65 (98) 98 02/16/19 20:41 78 162/66 02/16/19 20:30 80 30 162/66 (98) 97 02/16/19 20:30 30 Mechanical Ventilator 40 02/16/19 20:15 20 Mechanical Ventilator 40 02/16/19 20:15 94 22 187/85 (119) 97 02/16/19 20:00 40 02/16/19 20:00 Mechanical Ventilator Mechanical Ventilator Mechanical Ventilator 02/16/19 20:00 22 Mechanical Ventilator 40 02/16/19 20:00 98.7 82 22 166/70 (102) 97 02/16/19 19:45 Mechanical Ventilator 40 02/16/19 19:45 85 18 168/78 (108) 96 02/16/19 19:30 79 27 155/64 (94) 99 02/16/19 19:30 27 Mechanical Ventilator 40 02/16/19 19:26 82 02/16/19 19:25 74 30 100 Mechanical Ventilator 40 02/16/19 19:16 76 30 100 Mechanical Ventilator 40 02/16/19 19:15 76 30 40 02/16/19 19:00 77 30 142/64 (90) 97 02/16/19 19:00 30 Mechanical Ventilator 02/16/19 19:00 30 Mechanical Ventilator 02/16/19 18:30 76 30 158/62 (94) 97 02/16/19 18:00 76 30 158/62 (94) 97 02/16/19 18:00 30 Mechanical Ventilator 02/16/19 18:00 30 Mechanical Ventilator 02/16/19 17:30 134/63 02/16/19 17:30 98.4 75 30 136/62 (86) 97 02/16/19 17:29 134/63 02/16/19 17:05 75 30 50 02/16/19 17:00 98.4 72 30 132/76 (94) 97 02/16/19 17:00 30 Mechanical Ventilator 02/16/19 17:00 30 Mechanical Ventilator 02/16/19 16:30 75 30 158/74 (102) 97 02/16/19 16:00 72 02/16/19 16:00 40 02/16/19 16:00 Mechanical Ventilator Mechanical Ventilator Mechanical Ventilator 02/16/19 16:00 98.4 72 30 136/62 (86) 95 02/16/19 16:00 30 Mechanical Ventilator 02/16/19 16:00 30 Mechanical Ventilator 02/16/19 15:30 72 30 137/66 (89) 94 02/16/19 15:00 30 Mechanical Ventilator 02/16/19 15:00 30 Mechanical Ventilator 02/16/19 15:00 30 Mechanical Ventilator 02/16/19 15:00 72 30 132/65 (87) 95 02/16/19 14:55 72 30 98 Mechanical Ventilator 40 02/16/19 14:45 74 30 50 02/16/19 14:45 74 30 100 Mechanical Ventilator 40 02/16/19 14:30 71 30 133/66 (88) 96 02/16/19 14:00 30 Mechanical Ventilator 02/16/19 14:00 30 Mechanical Ventilator 02/16/19 14:00 71 30 133/65 (87) 96 02/16/19 13:30 71 30 137/68 (91) 95 02/16/19 13:00 72 30 144/70 (94) 95 02/16/19 13:00 30 Mechanical Ventilator 02/16/19 13:00 30 Mechanical Ventilator 02/16/19 12:47 77 30 50 02/16/19 12:41 171/83 02/16/19 12:40 171/83 02/16/19 12:30 75 30 158/75 (102) 94 02/16/19 12:00 84 02/16/19 12:00 98.1 74 30 152/78 (102) 93 02/16/19 12:00 Mechanical Ventilator Mechanical Ventilator Mechanical Ventilator 02/16/19 12:00 30 Mechanical Ventilator 02/16/19 12:00 30 02/16/19 11:30 77 30 156/76 (102) 92 02/16/19 11:16 73 30 98 Mechanical Ventilator 50 02/16/19 11:10 76 30 60 02/16/19 11:10 77 30 97 Mechanical Ventilator 50 02/16/19 11:00 30 Mechanical Ventilator 02/16/19 11:00 30 Mechanical Ventilator 02/16/19 11:00 78 30 156/75 (102) 95 02/16/19 10:30 80 30 147/70 (95) 92 02/16/19 10:00 82 30 146/86 (106) 96 02/16/19 10:00 30 Mechanical Ventilator 02/16/19 10:00 30 02/16/19 09:35 88 154/76 02/16/19 09:33 87 154/64 02/16/19 09:30 86 30 147/78 (101) 91 02/16/19 09:25 79 30 60 02/16/19 09:00 30 Mechanical Ventilator 02/16/19 09:00 30 02/16/19 09:00 92 30 155/70 (98) 91 02/16/19 08:30 96 19 173/82 (112) 100 02/16/19 08:15 100 02/16/19 08:00 29 Mechanical Ventilator 02/16/19 08:00 29 Mechanical Ventilator 02/16/19 08:00 113 19 192/110 (137) 88 02/16/19 08:00 40 02/16/19 08:00 Mechanical Ventilator Mechanical Ventilator Mechanical Ventilator 02/16/19 08:00 110 02/16/19 07:40 72 24 98 Mechanical Ventilator 40 02/16/19 07:30 76 24 40 45 02/16/19 07:30 116 22 192/110 (137) 97 02/16/19 07:30 71 24 97 Mechanical Ventilator 40 02/16/19 07:20 40 02/16/19 07:00 40 02/16/19 07:00 19 Mechanical Ventilator 02/16/19 07:00 19 02/16/19 07:00 98.5 110 24 162/122 (135) 93 02/16/19 06:30 84 22 173/76 (108) 97 02/16/19 06:15 86 23 173/73 (106) 100 02/16/19 06:00 24 Mechanical Ventilator 40 02/16/19 06:00 24 Mechanical Ventilator 40 02/16/19 06:00 80 24 161/67 (98) 96 02/16/19 05:48 171/72 02/16/19 05:47 171/72 02/16/19 05:45 77 22 163/70 (101) 95 02/16/19 05:45 24 Mechanical Ventilator 40 02/16/19 05:35 24 Mechanical Ventilator 40 02/16/19 05:35 24 Mechanical Ventilator 40 02/16/19 05:30 24 Mechanical Ventilator 40 02/16/19 05:30 79 24 171/72 (105) 96 02/16/19 05:15 77 23 167/72 (103) 96 02/16/19 05:15 78 24 40 02/16/19 05:15 24 Mechanical Ventilator 40 02/16/19 05:00 79 24 166/73 (104) 95 02/16/19 05:00 24 Mechanical Ventilator 40 02/16/19 05:00 24 Mechanical Ventilator 40 02/16/19 04:45 74 23 160/67 (98) 94 02/16/19 04:30 78 24 166/74 (104) 96 02/16/19 04:30 24 Mechanical Ventilator 40 02/16/19 04:30 24 Mechanical Ventilator 40 02/16/19 04:27 166/73 02/16/19 04:15 80 25 166/73 (104) 96 02/16/19 04:15 24 Mechanical Ventilator 40 02/16/19 04:15 24 Mechanical Ventilator 40 02/16/19 04:00 40 02/16/19 04:00 Mechanical Ventilator Mechanical Ventilator Mechanical Ventilator 02/16/19 04:00 24 Mechanical Ventilator 40 02/16/19 04:00 24 Mechanical Ventilator 40 02/16/19 04:00 98.6 74 24 158/64 (95) 93 02/16/19 04:00 76 02/16/19 03:45 75 24 156/63 (94) 95 02/16/19 03:30 75 15 154/62 (92) 95 02/16/19 03:24 74 24 98 Mechanical Ventilator 40 02/16/19 03:16 75 24 97 Mechanical Ventilator 40 02/16/19 03:15 76 24 161/67 (98) 98 02/16/19 03:15 77 24 40 02/16/19 03:00 76 15 161/66 (97) 96 02/16/19 03:00 24 Mechanical Ventilator 40 02/16/19 03:00 24 Mechanical Ventilator 40 02/16/19 02:45 82 11 166/73 (104) 95 02/16/19 02:31 85 19 176/77 (110) 96 02/16/19 02:00 24 Mechanical Ventilator 40 02/16/19 02:00 24 Mechanical Ventilator 40 02/16/19 02:00 79 24 170/72 (104) 96 02/16/19 01:40 98.4 02/16/19 01:30 84 21 172/80 (110) 97 02/16/19 01:15 79 24 40 02/16/19 01:10 24 Mechanical Ventilator 40 02/16/19 01:00 76 21 164/97 (119) 95 02/16/19 01:00 24 Mechanical Ventilator 40 02/16/19 01:00 24 Mechanical Ventilator 40 02/16/19 00:45 77 23 166/69 (101) 95 02/16/19 00:30 75 23 159/64 (95) 95 02/16/19 00:06 170/66 02/16/19 00:06 170/66 02/16/19 00:05 24 Mechanical Ventilator 40 02/16/19 00:00 98.4 80 23 170/66 (100) 96 02/16/19 00:00 Mechanical Ventilator Mechanical Ventilator Mechanical Ventilator 02/16/19 00:00 24 Mechanical Ventilator 40 02/16/19 00:00 24 Mechanical Ventilator 40 02/16/19 00:00 40 02/16/19 00:00 74 02/15/19 23:30 76 21 168/64 (98) 94 02/15/19 23:04 75 24 98 Mechanical Ventilator 40 02/15/19 23:00 75 21 160/62 (94) 96 02/15/19 23:00 24 Mechanical Ventilator 40 02/15/19 23:00 24 Mechanical Ventilator 40 02/15/19 22:57 74 24 97 Mechanical Ventilator 40 02/15/19 22:56 76 24 40 02/15/19 22:30 75 21 160/62 (94) 96 02/15/19 22:00 74 23 167/70 (102) 96 02/15/19 22:00 24 Mechanical Ventilator 40 02/15/19 22:00 24 Mechanical Ventilator 40 02/15/19 21:55 24 40 02/15/19 21:30 74 24 167/70 (102) 96 02/15/19 21:18 77 24 40 02/15/19 21:00 24 Mechanical Ventilator 40 02/15/19 21:00 24 Mechanical Ventilator 40 02/15/19 21:00 77 24 164/71 (102) 96 02/15/19 20:53 74 147/58 02/15/19 20:30 74 24 147/58 (87) 95 02/15/19 20:00 75 02/15/19 20:00 40 02/15/19 20:00 24 Mechanical Ventilator 40 02/15/19 20:00 24 Mechanical Ventilator 40 02/15/19 20:00 Mechanical Ventilator Mechanical Ventilator Mechanical Ventilator 02/15/19 20:00 74 24 145/59 (87) 95 02/15/19 19:30 98.5 79 24 153/65 (94) 96 02/15/19 19:04 73 24 99 Mechanical Ventilator 40 02/15/19 19:00 75 24 144/55 (84) 96 02/15/19 19:00 24 Mechanical Ventilator 40 02/15/19 19:00 24 Mechanical Ventilator 40 02/15/19 18:57 75 24 98 Mechanical Ventilator 40 02/15/19 18:55 75 25 40 02/15/19 18:30 74 24 155/63 (93) 96 02/15/19 18:11 180/66 02/15/19 18:10 180/66 02/15/19 18:00 79 24 162/67 (98) 97 02/15/19 17:30 77 24 151/65 (93) 97 02/15/19 17:00 24 Mechanical Ventilator 40 02/15/19 17:00 24 Mechanical Ventilator 40 02/15/19 17:00 72 24 150/66 (94) 96 02/15/19 16:32 73 24 40 02/15/19 16:30 74 24 162/71 (101) 96 02/15/19 16:00 98.5 81 24 164/69 (100) 98 02/15/19 16:00 81 02/15/19 16:00 24 Mechanical Ventilator 40 02/15/19 16:00 24 Mechanical Ventilator 40 02/15/19 16:00 40 02/15/19 16:00 Mechanical Ventilator Mechanical Ventilator Mechanical Ventilator 02/15/19 15:31 22 Mechanical Ventilator 40 02/15/19 15:30 78 25 165/75 (105) 97 02/15/19 15:00 78 24 150/63 (92) 97 02/15/19 15:00 24 Mechanical Ventilator 40 02/15/19 15:00 24 Mechanical Ventilator 40 02/15/19 14:56 69 24 98 Mechanical Ventilator 40 02/15/19 14:48 73 24 96 Mechanical Ventilator 40 02/15/19 14:48 73 24 40 02/15/19 14:30 75 24 149/73 (98) 97 02/15/19 14:00 24 Mechanical Ventilator 40 02/15/19 14:00 24 Mechanical Ventilator 40 02/15/19 14:00 69 24 143/59 (87) 94 02/15/19 13:30 73 24 143/59 (87) 94 02/15/19 13:01 74 24 40 02/15/19 13:00 23 Mechanical Ventilator 40 02/15/19 13:00 23 Mechanical Ventilator 40 02/15/19 13:00 98.0 82 23 141/59 (86) 95 02/15/19 12:30 83 23 143/59 (87) 96 02/15/19 12:30 24 Mechanical Ventilator 40 02/15/19 12:30 24 Mechanical Ventilator 40 02/15/19 12:09 167/68 02/15/19 12:08 167/68 02/15/19 12:00 40 02/15/19 12:00 81 24 156/74 (101) 96 02/15/19 12:00 Mechanical Ventilator Mechanical Ventilator Mechanical Ventilator 02/15/19 12:00 81 02/15/19 12:00 24 Mechanical Ventilator 40 02/15/19 12:00 24 Mechanical Ventilator 40 02/15/19 11:30 80 24 167/68 (101) 97 02/15/19 11:00 24 Mechanical Ventilator 40 02/15/19 11:00 24 Mechanical Ventilator 40 02/15/19 11:00 73 24 160/72 (101) 96 02/15/19 10:47 78 24 99 Mechanical Ventilator 40 02/15/19 10:37 75 24 96 Mechanical Ventilator 40 02/15/19 10:34 67 24 40 02/15/19 10:30 78 24 159/67 (97) 97 02/15/19 10:00 68 24 155/65 (95) 97 02/15/19 10:00 24 Mechanical Ventilator 40 02/15/19 10:00 24 Mechanical Ventilator 40 02/15/19 09:30 24 Mechanical Ventilator 40 02/15/19 09:30 24 Mechanical Ventilator 40 02/15/19 09:30 74 24 155/63 (93) 98 Intake and Output 02/16/19 02/17/19 19:00 07:00 Intake Total 1974.000 ml 2925.5 ml Output Total 1735 ml 2520 ml Balance 239.000 ml 405.5 ml Free Water 60 ml IV Total 1377.000 ml 2241.5 ml Tube Feeding 537 ml 344 ml Other 340 ml Output Urine Total 1735 ml 2520 ml # Bowel Movements 4 4 Labs Test 02/15/19 00:30 02/15/19 04:50 02/15/19 06:21 02/16/19 03:30 Urine Eosinophils None seen (NONE SEEN) White Blood Count 4.7 K/UL (4.8-10.8) Red Blood Count 2.99 M/UL (4.70-6.10) Hemoglobin 8.2 G/DL (14.2-18.0) Hematocrit 25.1 % (42.0-52.0) Mean Corpuscular Volume 84 FL (80-99) Mean Corpuscular Hemoglobin 27.5 PG (27.0-31.0) Mean Corpuscular Hemoglobin Concent 32.7 G/DL (32.0-36.0) Red Cell Distribution Width 17.8 % (11.6-14.8) Platelet Count 205 K/UL (150-450) Mean Platelet Volume 6.2 FL (6.5-10.1) Neutrophils (%) (Auto) % (45.0-75.0) Lymphocytes (%) (Auto) % (20.0-45.0) Monocytes (%) (Auto) % (1.0-10.0) Eosinophils (%) (Auto) % (0.0-3.0) Basophils (%) (Auto) % (0.0-2.0) Sodium Level 147 MMOL/L (136-145) Potassium Level 5.2 MMOL/L (3.5-5.1) Chloride Level 114 MMOL/L (98-107) Carbon Dioxide Level 24 MMOL/L (21-32) Anion Gap 9 mmol/L (5-15) Blood Urea Nitrogen 66 mg/dL (7-18) Creatinine 2.9 MG/DL (0.55-1.30) Estimat Glomerular Filtration Rate 22.4 mL/min (>60) Glucose Level 204 MG/DL (74-106) Lactic Acid Level 2.00 mmol/L (0.4-2.0) Uric Acid 5.8 MG/DL (2.6-7.2) Calcium Level 7.8 MG/DL (8.5-10.1) Phosphorus Level 4.4 MG/DL (2.5-4.9) Magnesium Level 2.6 MG/DL (1.8-2.4) Total Bilirubin 0.3 MG/DL (0.2-1.0) Gamma Glutamyl Transpeptidase 329 U/L (5-85) Aspartate Amino Transf (AST/SGOT) 30 U/L (15-37) Alanine Aminotransferase (ALT/SGPT) 51 U/L (12-78) Alkaline Phosphatase 153 U/L (46-116) Troponin I 2.367 ng/mL (0.000-0.056) C-Reactive Protein, Quantitative 3.2 mg/dL (0.00-0.90) Pro-B-Type Natriuretic Peptide 5827 pg/mL (0-125) Total Protein 5.5 G/DL (6.4-8.2) Albumin 1.9 G/DL (3.4-5.0) Globulin 3.6 g/dL Albumin/Globulin Ratio 0.5 (1.0-2.7) Arterial Blood pH 7.453 (7.350-7.450) Arterial Blood Partial Pressure CO2 33.3 mmHg (35.0-45.0) Arterial Blood Partial Pressure O2 69.3 mmHg (75.0-100.0) Arterial Blood HCO3 22.8 mmol/L (22.0-26.0) Arterial Blood Oxygen Saturation 92.3 % (95-100) Arterial Blood Base Excess -0.8 (-2-2) Benny Test Positive Stool Occult Blood Negative (NEGATIVE) Test 02/16/19 05:05 02/16/19 08:08 02/17/19 05:00 White Blood Count 7.8 K/UL (4.8-10.8) 6.0 K/UL (4.8-10.8) Red Blood Count 3.26 M/UL (4.70-6.10) 3.11 M/UL (4.70-6.10) Hemoglobin 8.9 G/DL (14.2-18.0) 8.7 G/DL (14.2-18.0) Hematocrit 27.8 % (42.0-52.0) 27.1 % (42.0-52.0) Mean Corpuscular Volume 85 FL (80-99) 87 FL (80-99) Mean Corpuscular Hemoglobin 27.5 PG (27.0-31.0) 27.9 PG (27.0-31.0) Mean Corpuscular Hemoglobin Concent 32.1 G/DL (32.0-36.0) 32.0 G/DL (32.0-36.0) Red Cell Distribution Width 18.1 % (11.6-14.8) 17.6 % (11.6-14.8) Platelet Count 253 K/UL (150-450) 245 K/UL (150-450) Mean Platelet Volume 6.4 FL (6.5-10.1) 5.9 FL (6.5-10.1) Neutrophils (%) (Auto) % (45.0-75.0) 81.3 % (45.0-75.0) Lymphocytes (%) (Auto) % (20.0-45.0) 9.6 % (20.0-45.0) Monocytes (%) (Auto) % (1.0-10.0) 8.4 % (1.0-10.0) Eosinophils (%) (Auto) % (0.0-3.0) 0.4 % (0.0-3.0) Basophils (%) (Auto) % (0.0-2.0) 0.4 % (0.0-2.0) Sodium Level 148 MMOL/L (136-145) 142 MMOL/L (136-145) Potassium Level 5.8 MMOL/L (3.5-5.1) 4.3 MMOL/L (3.5-5.1) Chloride Level 114 MMOL/L (98-107) 108 MMOL/L (98-107) Carbon Dioxide Level 28 MMOL/L (21-32) 25 MMOL/L (21-32) Anion Gap 6 mmol/L (5-15) 9 mmol/L (5-15) Blood Urea Nitrogen 71 mg/dL (7-18) 67 mg/dL (7-18) Creatinine 2.6 MG/DL (0.55-1.30) 2.5 MG/DL (0.55-1.30) Estimat Glomerular Filtration Rate 25.4 mL/min (>60) 26.6 mL/min (>60) Glucose Level 269 MG/DL (74-106) 308 MG/DL (74-106) Uric Acid 4.8 MG/DL (2.6-7.2) 3.8 MG/DL (2.6-7.2) Calcium Level 7.8 MG/DL (8.5-10.1) 7.9 MG/DL (8.5-10.1) Phosphorus Level 4.6 MG/DL (2.5-4.9) 3.7 MG/DL (2.5-4.9) Magnesium Level 2.9 MG/DL (1.8-2.4) 2.4 MG/DL (1.8-2.4) Total Bilirubin 0.2 MG/DL (0.2-1.0) 0.2 MG/DL (0.2-1.0) Aspartate Amino Transf (AST/SGOT) 32 U/L (15-37) 36 U/L (15-37) Alanine Aminotransferase (ALT/SGPT) 51 U/L (12-78) 46 U/L (12-78) Alkaline Phosphatase 157 U/L (46-116) 139 U/L (46-116) C-Reactive Protein, Quantitative 2.2 mg/dL (0.00-0.90) 1.7 mg/dL (0.00-0.90) Pro-B-Type Natriuretic Peptide 5575 pg/mL (0-125) 5368 pg/mL (0-125) Total Protein 5.7 G/DL (6.4-8.2) 5.2 G/DL (6.4-8.2) Albumin 2.0 G/DL (3.4-5.0) 1.9 G/DL (3.4-5.0) Globulin 3.7 g/dL 3.3 g/dL Albumin/Globulin Ratio 0.5 (1.0-2.7) 0.6 (1.0-2.7) Random Vancomycin Level 11.4 ug/mL Arterial Blood pH 7.244 (7.350-7.450) Arterial Blood Partial Pressure CO2 59.1 mmHg (35.0-45.0) Arterial Blood Partial Pressure O2 63.4 mmHg (75.0-100.0) Arterial Blood HCO3 25.0 mmol/L (22.0-26.0) Arterial Blood Oxygen Saturation 87.0 % (95-100) Arterial Blood Base Excess -3.0 (-2-2) Benny Test Positive Height (Feet): 6 Height (Inches): 0.00 Weight (Pounds): 269 Objective PHYSICAL EXAMINATION: GENERAL: NAD VITAL SIGNS: Have been reviewed. HEAD AND NECK: Shows no JVD. NG+ TRACH+ LUNGS: Coarse rhonchi. CARDIOVASCULAR: Shows regular S1 and S2 with no gallop or murmur. ABDOMEN: Soft. EXTREMITIES: No pitting edema. Chan Hernandez MD Feb 17, 2019 09:19
--- NOTE | 2019-02-17 09:30 | NUR ---
NURSE NOTES: NOTED GENERALIZED NON-PITTING EDEMA. ON FENTANYL AND VERSED DRIP EASILY AROUSABLE. NO SIGNS OF DISTRESS. WILL CONTINUE TO MONITOR.
[2019-02-17] MEDS: RALTEGRAVIR 400 MG ORAL SCH ×2 (10:00→17:52)
[2019-02-17] MEDS: ETRAVIRINE 200 MG ORAL SCH ×2 (10:04→17:53)
--- NOTE | 2019-02-17 10:09 | Nephrology Progress Note ---
Assessment/Plan Problem List: (1) ISH (acute kidney injury) Assessment: Cr lowering (2) HIV (human immunodeficiency virus infection) (3) NSTEMI (non-ST elevated myocardial infarction) Assessment: troponin decreasing (4) Hypoxia (5) Anemia (6) Diabetes Assessment Acute Renal failure- Cr leveling- Urine out put is good Acidosis improved Acute respiratory failure- Require intubation and Mechanical Ventilation- Anemia- Elevated troponin / LA HTN DM HIV Antibody + Plan Lasix trial- Kayexelate as needed BP med adjustment ? recheck 2D echo?? IV D5W Off Bicitra UA and urine studies Avoid Nephrotoxics as possible Monitor renal parameters keep BP and BS in check Per orders No HD at this time Kidney RADHA noted adjust BP meds add Isordil Subjective ROS Limited/Unobtainable: Yes Objective Objective Last 24 Hour Vital Signs Date Time Temp Pulse Resp B/P (MAP) Pulse Ox O2 Delivery O2 Flow Rate FiO2 02/17/19 08:56 71 30 40 02/17/19 08:16 69 154/69 02/17/19 08:15 69 154/61 02/17/19 08:11 30 Mechanical Ventilator 40 02/17/19 08:00 40 02/17/19 08:00 98.5 69 30 154/68 (96) 97 02/17/19 07:12 72 30 100 Mechanical Ventilator 40 02/17/19 07:02 67 30 98 Mechanical Ventilator 40 02/17/19 07:00 72 30 162/71 (101) 98 02/17/19 07:00 30 Mechanical Ventilator 40 02/17/19 06:52 67 30 40 02/17/19 06:30 69 30 152/65 (94) 97 02/17/19 06:00 30 Mechanical Ventilator 40 02/17/19 06:00 70 30 144/59 (87) 97 02/17/19 05:33 162/74 02/17/19 05:33 162/74 02/17/19 05:30 72 30 162/70 (100) 100 02/17/19 05:26 74 30 40 02/17/19 05:00 79 25 188/87 (120) 99 02/17/19 05:00 30 Mechanical Ventilator 40 02/17/19 04:59 192/77 02/17/19 04:45 30 Mechanical Ventilator 40 02/17/19 04:30 85 30 192/84 (120) 99 02/17/19 04:30 30 Mechanical Ventilator 40 02/17/19 04:00 98.0 78 30 184/84 (117) 97 02/17/19 04:00 Mechanical Ventilator Mechanical Ventilator Mechanical Ventilator 02/17/19 04:00 30 Mechanical Ventilator 40 02/17/19 04:00 40 02/17/19 03:37 71 30 98 Mechanical Ventilator 40 02/17/19 03:31 71 02/17/19 03:30 72 30 172/72 (105) 99 02/17/19 03:27 70 30 97 Mechanical Ventilator 40 02/17/19 03:26 70 30 40 02/17/19 03:05 166/67 02/17/19 03:00 69 30 166/66 (99) 97 02/17/19 03:00 30 Mechanical Ventilator 40 02/17/19 02:30 70 30 167/67 (100) 97 02/17/19 02:15 30 Mechanical Ventilator 40 02/17/19 02:00 70 30 167/69 (101) 96 02/17/19 02:00 30 Mechanical Ventilator 40 02/17/19 01:45 30 Mechanical Ventilator 40 02/17/19 01:36 30 Mechanical Ventilator 40 02/17/19 01:30 72 30 171/73 (105) 97 02/17/19 01:10 69 30 40 02/17/19 01:00 30 Mechanical Ventilator 40 02/17/19 01:00 69 30 161/86 (111) 96 02/17/19 00:30 68 30 163/70 (101) 95 02/17/19 00:00 97.4 68 30 159/66 (97) 96 02/17/19 00:00 30 Mechanical Ventilator 40 02/17/19 00:00 40 02/17/19 00:00 Mechanical Ventilator Mechanical Ventilator Mechanical Ventilator 02/16/19 23:49 68 02/16/19 23:38 75 30 100 Mechanical Ventilator 40 02/16/19 23:36 168/68 02/16/19 23:36 168/68 02/16/19 23:30 68 30 168/68 (101) 98 02/16/19 23:28 67 30 97 Mechanical Ventilator 40 02/16/19 23:27 67 30 40 02/16/19 23:00 67 30 164/66 (98) 96 6/28/19 23:00 30 Mechanical Ventilator 40 02/16/19 22:55 167/47 02/16/19 22:30 68 30 167/67 (100) 96 02/16/19 22:27 30 Mechanical Ventilator 40 02/16/19 22:00 68 30 161/65 (97) 97 02/16/19 22:00 30 Mechanical Ventilator 40 02/16/19 21:30 70 30 160/64 (96) 98 02/16/19 21:17 30 40 02/16/19 21:00 76 30 163/65 (97) 99 02/16/19 21:00 30 Mechanical Ventilator 40 02/16/19 20:55 82 30 40 02/16/19 20:45 78 30 165/65 (98) 98 02/16/19 20:41 78 162/66 02/16/19 20:30 80 30 162/66 (98) 97 02/16/19 20:30 30 Mechanical Ventilator 40 02/16/19 20:15 20 Mechanical Ventilator 40 02/16/19 20:15 94 22 187/85 (119) 97 02/16/19 20:00 40 02/16/19 20:00 Mechanical Ventilator Mechanical Ventilator Mechanical Ventilator 02/16/19 20:00 22 Mechanical Ventilator 40 02/16/19 20:00 98.7 82 22 166/70 (102) 97 02/16/19 19:45 Mechanical Ventilator 40 02/16/19 19:45 85 18 168/78 (108) 96 02/16/19 19:30 79 27 155/64 (94) 99 02/16/19 19:30 27 Mechanical Ventilator 40 02/16/19 19:26 82 02/16/19 19:25 74 30 100 Mechanical Ventilator 40 02/16/19 19:16 76 30 100 Mechanical Ventilator 40 02/16/19 19:15 76 30 40 02/16/19 19:00 77 30 142/64 (90) 97 02/16/19 19:00 30 Mechanical Ventilator 02/16/19 19:00 30 Mechanical Ventilator 02/16/19 18:30 76 30 158/62 (94) 97 02/16/19 18:00 76 30 158/62 (94) 97 02/16/19 18:00 30 Mechanical Ventilator 02/16/19 18:00 30 Mechanical Ventilator 02/16/19 17:30 134/63 02/16/19 17:30 98.4 75 30 136/62 (86) 97 02/16/19 17:29 134/63 02/16/19 17:05 75 30 50 02/16/19 17:00 98.4 72 30 132/76 (94) 97 02/16/19 17:00 30 Mechanical Ventilator 02/16/19 17:00 30 Mechanical Ventilator 02/16/19 16:30 75 30 158/74 (102) 97 02/16/19 16:00 72 02/16/19 16:00 40 02/16/19 16:00 Mechanical Ventilator Mechanical Ventilator Mechanical Ventilator 02/16/19 16:00 98.4 72 30 136/62 (86) 95 02/16/19 16:00 30 Mechanical Ventilator 02/16/19 16:00 30 Mechanical Ventilator 02/16/19 15:30 72 30 137/66 (89) 94 02/16/19 15:00 30 Mechanical Ventilator 02/16/19 15:00 30 Mechanical Ventilator 02/16/19 15:00 30 Mechanical Ventilator 02/16/19 15:00 72 30 132/65 (87) 95 02/16/19 14:55 72 30 98 Mechanical Ventilator 40 02/16/19 14:45 74 30 50 02/16/19 14:45 74 30 100 Mechanical Ventilator 40 02/16/19 14:30 71 30 133/66 (88) 96 02/16/19 14:00 30 Mechanical Ventilator 02/16/19 14:00 30 Mechanical Ventilator 02/16/19 14:00 71 30 133/65 (87) 96 02/16/19 13:30 71 30 137/68 (91) 95 02/16/19 13:00 72 30 144/70 (94) 95 02/16/19 13:00 30 Mechanical Ventilator 02/16/19 13:00 30 Mechanical Ventilator 02/16/19 12:47 77 30 50 02/16/19 12:41 171/83 02/16/19 12:40 171/83 02/16/19 12:30 75 30 158/75 (102) 94 02/16/19 12:00 84 02/16/19 12:00 98.1 74 30 152/78 (102) 93 02/16/19 12:00 Mechanical Ventilator Mechanical Ventilator Mechanical Ventilator 02/16/19 12:00 30 Mechanical Ventilator 02/16/19 12:00 30 02/16/19 11:30 77 30 156/76 (102) 92 02/16/19 11:16 73 30 98 Mechanical Ventilator 50 02/16/19 11:10 76 30 60 02/16/19 11:10 77 30 97 Mechanical Ventilator 50 02/16/19 11:00 30 Mechanical Ventilator 02/16/19 11:00 30 Mechanical Ventilator 02/16/19 11:00 78 30 156/75 (102) 95 02/16/19 10:30 80 30 147/70 (95) 92 Intake and Output 02/16/19 02/17/19 19:00 07:00 Intake Total 1974.000 ml 2925.5 ml Output Total 1735 ml 2520 ml Balance 239.000 ml 405.5 ml Free Water 60 ml IV Total 1377.000 ml 2241.5 ml Tube Feeding 537 ml 344 ml Other 340 ml Output Urine Total 1735 ml 2520 ml # Bowel Movements 4 4 Laboratory Tests 02/17/19 05:00: White Blood Count 6.0, Red Blood Count 3.11L, Hemoglobin 8.7L, Hematocrit 27.1L , Mean Corpuscular Volume 87, Mean Corpuscular Hemoglobin 27.9, Mean Corpuscular Hemoglobin Concent 32.0, Red Cell Distribution Width 17.6H, Platelet Count 245, Mean Platelet Volume 5.9L, Neutrophils (%) (Auto) 81.3H, Lymphocytes (%) (Auto) 9.6L, Monocytes (%) (Auto) 8.4, Eosinophils (%) (Auto) 0.4, Basophils (%) (Auto) 0.4, Sodium Level 142, Potassium Level 4.3, Chloride Level 108H, Carbon Dioxide Level 25, Anion Gap 9, Blood Urea Nitrogen 67H, Creatinine 2.5H, Estimat Glomerular Filtration Rate 26.6, Glucose Level 308H, Uric Acid 3.8, Calcium Level 7.9L, Phosphorus Level 3.7, Magnesium Level 2.4, Total Bilirubin 0.2, Aspartate Amino Transf (AST/SGOT) 36, Alanine Aminotransferase (ALT/SGPT) 46, Alkaline Phosphatase 139H, C-Reactive Protein, Quantitative 1.7H, Pro-B-Type Natriuretic Peptide 5368H, Total Protein 5.2L, Albumin 1.9L, Globulin 3.3, Albumin/Globulin Ratio 0.6L Height (Feet): 6 Height (Inches): 0.00 Weight (Pounds): 269 General Appearance: no apparent distress Cardiovascular: normal rate Respiratory/Chest: decreased breath sounds Abdomen: distended Mike Mcdonald MD Feb 17, 2019 10:09
--- NOTE | 2019-02-17 11:30 | NUR ---
NURSE NOTES: SEEN AND EXAMINED BY DR PENA WITH NEW ORDERS MADE. MADE AWARE OF THE BP. WILL CONTINUE TO MONITOR.
--- NOTE | 2019-02-17 12:04 | General Progress Note ---
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 ICD Codes: E11.22 - Type 2 diabetes mellitus with diabetic chronic kidney disease; E11.65 - Type 2 diabetes mellitus with hyperglycemia SNOMED: 92333922, 291515333, 384826075 (3) HIV disease ICD Codes: B20 - Human immunodeficiency virus [HIV] disease SNOMED: 35976522 (4) Respiratory distress ICD Codes: R06.03 - Acute respiratory distress SNOMED: 797832699 Status: stable Assessment/Plan: - increase Novolog to 16 units every 4 hours - continue Novolog sliding scale resistant scale every 4 hours Subjective ROS Limited/Unobtainable: Yes Allergies: Coded Allergies: No Known Allergies (Unverified , 02/05/13) Subjective events noted remained intubated and sedated in ICU Item Value Date Time Bedside Blood Glucose 284 mg/dl H 02/17/19 0836 Bedside Blood Glucose 284 mg/dl H 02/17/19 0449 Bedside Blood Glucose 349 mg/dl H 02/17/19 0039 Bedside Blood Glucose 315 mg/dl H 02/16/193 Objective Last 24 Hour Vital Signs Date Time Temp Pulse Resp B/P (MAP) Pulse Ox O2 Delivery O2 Flow Rate FiO2 02/17/19 11:30 80 30 99 Mechanical Ventilator 40 02/17/19 11:26 206/85 02/17/19 11:26 206/02/17/19 10:48 78 31 40 02/17/19 10:30 81 24 162/109 (126) 100 02/17/19 10:00 78 27 173/80 (111) 99 02/17/19 09:30 66 29 159/65 (96) 97 02/17/19 09:00 66 30 155/62 (93) 97 02/17/19 08:56 71 30 40 02/17/19 08:30 70 30 149/59 (89) 98 02/17/19 08:16 69 154/69 02/17/19 08:15 69 154/61 02/17/19 08:11 30 Mechanical Ventilator 40 02/17/19 08:00 Mechanical Ventilator Mechanical Ventilator Mechanical Ventilator 02/17/19 08:00 40 02/17/19 08:00 98.5 69 30 154/68 (96) 97 02/17/19 07:12 72 30 100 Mechanical Ventilator 40 02/17/19 07:02 67 30 98 Mechanical Ventilator 40 02/17/19 07:00 72 30 162/71 (101) 98 02/17/19 07:00 30 Mechanical Ventilator 40 02/17/19 06:52 67 30 40 02/17/19 06:30 69 30 152/65 (94) 97 02/17/19 06:00 30 Mechanical Ventilator 40 02/17/19 06:00 70 30 144/59 (87) 97 02/17/19 05:33 162/74 02/17/19 05:33 162/74 02/17/19 05:30 72 30 162/70 (100) 100 02/17/19 05:26 74 30 40 02/17/19 05:00 79 25 188/87 (120) 99 02/17/19 05:00 30 Mechanical Ventilator 40 02/17/19 04:59 192/77 02/17/19 04:45 30 Mechanical Ventilator 40 02/17/19 04:30 85 30 192/84 (120) 99 02/17/19 04:30 30 Mechanical Ventilator 40 02/17/19 04:00 98.0 78 30 184/84 (117) 97 02/17/19 04:00 Mechanical Ventilator Mechanical Ventilator Mechanical Ventilator 02/17/19 04:00 30 Mechanical Ventilator 40 02/17/19 04:00 40 02/17/19 03:37 71 30 98 Mechanical Ventilator 40 02/17/19 03:31 71 02/17/19 03:30 72 30 172/72 (105) 99 02/17/19 03:27 70 30 97 Mechanical Ventilator 40 02/17/19 03:26 70 30 40 02/17/19 03:05 166/67 02/17/19 03:00 69 30 166/66 (99) 97 02/17/19 03:00 30 Mechanical Ventilator 40 02/17/19 02:30 70 30 167/67 (100) 97 02/17/19 02:15 30 Mechanical Ventilator 40 02/17/19 02:00 70 30 167/69 (101) 96 02/17/19 02:00 30 Mechanical Ventilator 40 02/17/19 01:45 30 Mechanical Ventilator 40 02/17/19 01:36 30 Mechanical Ventilator 40 02/17/19 01:30 72 30 171/73 (105) 97 02/17/19 01:10 69 30 40 02/17/19 01:00 30 Mechanical Ventilator 40 02/17/19 01:00 69 30 161/86 (111) 96 02/17/19 00:30 68 30 163/70 (101) 95 02/17/19 00:00 97.4 68 30 159/66 (97) 96 02/17/19 00:00 30 Mechanical Ventilator 40 02/17/19 00:00 40 02/17/19 00:00 Mechanical Ventilator Mechanical Ventilator Mechanical Ventilator 02/16/19 23:49 68 02/16/19 23:38 75 30 100 Mechanical Ventilator 40 02/16/19 23:36 168/68 02/16/19 23:36 168/68 02/16/19 23:30 68 30 168/68 (101) 98 02/16/19 23:28 67 30 97 Mechanical Ventilator 40 02/16/19 23:27 67 30 40 02/16/19 23:00 67 30 164/66 (98) 96 02/16/19 23:00 30 Mechanical Ventilator 40 02/16/19 22:55 167/47 02/16/19 22:30 68 30 167/67 (100) 96 02/16/19 22:27 30 Mechanical Ventilator 40 02/16/19 22:00 68 30 161/65 (97) 97 02/16/19 22:00 30 Mechanical Ventilator 40 02/16/19 21:30 70 30 160/64 (96) 98 02/16/19 21:17 30 40 02/16/19 21:00 76 30 163/65 (97) 99 02/16/19 21:00 30 Mechanical Ventilator 40 02/16/19 20:55 82 30 40 02/16/19 20:45 78 30 165/65 (98) 98 02/16/19 20:41 78 162/66 02/16/19 20:30 80 30 162/66 (98) 97 02/16/19 20:30 30 Mechanical Ventilator 40 02/16/19 20:15 20 Mechanical Ventilator 40 02/16/19 20:15 94 22 187/85 (119) 97 02/16/19 20:00 40 02/16/19 20:00 Mechanical Ventilator Mechanical Ventilator Mechanical Ventilator 6/28/19 20:00 22 Mechanical Ventilator 40 02/16/19 20:00 98.7 82 22 166/70 (102) 97 02/16/19 19:45 Mechanical Ventilator 40 02/16/19 19:45 85 18 168/78 (108) 96 02/16/19 19:30 79 27 155/64 (94) 99 02/16/19 19:30 27 Mechanical Ventilator 40 02/16/19 19:26 82 02/16/19 19:25 74 30 100 Mechanical Ventilator 40 02/16/19 19:16 76 30 100 Mechanical Ventilator 40 02/16/19 19:15 76 30 40 02/16/19 19:00 77 30 142/64 (90) 97 02/16/19 19:00 30 Mechanical Ventilator 02/16/19 19:00 30 Mechanical Ventilator 02/16/19 18:30 76 30 158/62 (94) 97 02/16/19 18:00 76 30 158/62 (94) 97 02/16/19 18:00 30 Mechanical Ventilator 02/16/19 18:00 30 Mechanical Ventilator 02/16/19 17:30 134/63 02/16/19 17:30 98.4 75 30 136/62 (86) 97 02/16/19 17:29 134/63 02/16/19 17:05 75 30 50 02/16/19 17:00 98.4 72 30 132/76 (94) 97 02/16/19 17:00 30 Mechanical Ventilator 02/16/19 17:00 30 Mechanical Ventilator 02/16/19 16:30 75 30 158/74 (102) 97 02/16/19 16:00 72 02/16/19 16:00 40 02/16/19 16:00 Mechanical Ventilator Mechanical Ventilator Mechanical Ventilator 02/16/19 16:00 98.4 72 30 136/62 (86) 95 02/16/19 16:00 30 Mechanical Ventilator 02/16/19 16:00 30 Mechanical Ventilator 02/16/19 15:30 72 30 137/66 (89) 94 02/16/19 15:00 30 Mechanical Ventilator 02/16/19 15:00 30 Mechanical Ventilator 02/16/19 15:00 30 Mechanical Ventilator 02/16/19 15:00 72 30 132/65 (87) 95 02/16/19 14:55 72 30 98 Mechanical Ventilator 40 02/16/19 14:45 74 30 50 02/16/19 14:45 74 30 100 Mechanical Ventilator 40 02/16/19 14:30 71 30 133/66 (88) 96 02/16/19 14:00 30 Mechanical Ventilator 02/16/19 14:00 30 Mechanical Ventilator 02/16/19 14:00 71 30 133/65 (87) 96 02/16/19 13:30 71 30 137/68 (91) 95 02/16/19 13:00 72 30 144/70 (94) 95 02/16/19 13:00 30 Mechanical Ventilator 02/16/19 13:00 30 Mechanical Ventilator 02/16/19 12:47 77 30 50 02/16/19 12:41 171/83 02/16/19 12:40 171/83 02/16/19 12:30 75 30 158/75 (102) 94 Intake and Output 02/16/19 02/17/19 19:00 07:00 Intake Total 1974.000 ml 2925.5 ml Output Total 1735 ml 2520 ml Balance 239.000 ml 405.5 ml Free Water 60 ml IV Total 1377.000 ml 2241.5 ml Tube Feeding 537 ml 344 ml Other 340 ml Output Urine Total 1735 ml 2520 ml # Bowel Movements 4 4 Laboratory Tests 02/17/19 05:00: White Blood Count 6.0, Red Blood Count 3.11L, Hemoglobin 8.7L, Hematocrit 27.1L , Mean Corpuscular Volume 87, Mean Corpuscular Hemoglobin 27.9, Mean Corpuscular Hemoglobin Concent 32.0, Red Cell Distribution Width 17.6H, Platelet Count 245, Mean Platelet Volume 5.9L, Neutrophils (%) (Auto) 81.3H, Lymphocytes (%) (Auto) 9.6L, Monocytes (%) (Auto) 8.4, Eosinophils (%) (Auto) 0.4, Basophils (%) (Auto) 0.4, Sodium Level 142, Potassium Level 4.3, Chloride Level 108H, Carbon Dioxide Level 25, Anion Gap 9, Blood Urea Nitrogen 67H, Creatinine 2.5H, Estimat Glomerular Filtration Rate 26.6, Glucose Level 308H, Uric Acid 3.8, Calcium Level 7.9L, Phosphorus Level 3.7, Magnesium Level 2.4, Total Bilirubin 0.2, Aspartate Amino Transf (AST/SGOT) 36, Alanine Aminotransferase (ALT/SGPT) 46, Alkaline Phosphatase 139H, C-Reactive Protein, Quantitative 1.7H, Pro-B-Type Natriuretic Peptide 5368H, Total Protein 5.2L, Albumin 1.9L, Globulin 3.3, Albumin/Globulin Ratio 0.6L Height (Feet): 6 Height (Inches): 0.00 Weight (Pounds): 269 General Appearance: severe distress Neck: normal alignment Cardiovascular: tachycardia Respiratory/Chest: decreased breath sounds Edema: 2+ Arm (L), 2+ Arm (R), 2+ Leg (L), 2+ Leg (R), 2+ Pedal (L), 2+ Pedal ( R), 2+ Generalized Objective Current Medications Medications (Trade) Dose Ordered Sig/Marquis Route PRN Reason Start Time Stop Time Status Last Admin Dose Admin Acetaminophen (Tylenol) 650 mg Q4H PRN ORAL Mild Pain (Pain Scale 1-3) 02/07/19 11:15 03/08/19 17:29 02/07/19 23:01 Acetaminophen/ Butalbital/ Caffeine (Fioricet) 1 tab Q8H PRN ORAL For Headache 02/08/19 17:15 03/10/19 17:14 Albuterol/ Ipratropium (Albuterol/ Ipratropium) 3 ml Q4HRT HHN 02/14/19 23:00 02/19/19 22:59 02/17/19 11:30 Amlodipine Besylate (Norvasc) 10 mg DAILY NG 02/15/19 09:00 03/14/19 15:59 02/17/19 08:15 Aspirin (Ecotrin) 81 mg DAILY ORAL 02/08/19 09:00 03/09/19 08:59 02/17/19 08:16 Atorvastatin Calcium (Lipitor) 10 mg QHS ORAL 02/17/19 21:00 03/10/19 20:59 Bisacodyl (Dulcolax) 5 mg DAILYPRN PRN ORAL Constipation 02/08/19 17:15 03/10/19 17:14 02/13/19 20:34 Chlorhexidine Gluconate (Jessy-Hex 2%) 1 applic DAILY@2000 TOPIC 02/13/19 20:00 03/15/19 19:59 02/16/19 19:44 Clonidine HCl (Catapres Tab) 0.1 mg EVERY 8 HOURS NG 02/17/19 14:00 03/19/19 13:59 Dextrose 1,000 ml @ 50 mls/hr Q20H IV 02/17/19 10:30 03/19/19 10:29 02/17/19 11:26 Dextrose (Dextrose 50%) 25 ml Q30M PRN IV Hypoglycemia 02/15/19 18:15 03/17/19 18:14 Dextrose (Dextrose 50%) 50 ml Q30M PRN IV Hypoglycemia 02/15/19 18:15 03/17/19 18:14 Docusate Sodium (Colace) 100 mg TID GT 02/12/19 18:00 03/12/19 08:59 02/16/19 17:29 Enoxaparin Sodium (Lovenox) 40 mg Q24H SUBQ 02/07/19 21:00 03/08/19 20:59 02/16/19 20:42 Fentanyl Citrate 2500 mcg/Sodium Chloride 250 ml @ 0 mls/hr Q24H IV 02/13/19 15:45 02/20/19 15:44 02/16/19 22:27 Fluconazole/ Sodium Chloride 100 ml @ 100 mls/hr Q24H IV 02/14/19 18:00 02/21/19 17:59 02/16/19 17:28 Guaifenesin (Mucinex ER) 600 mg TWICE A DAY ORAL 02/07/19 18:00 03/09/19 08:59 02/17/19 08:15 Hydralazine HCl (Apresoline) 10 mg Q4H PRN IV bp over 165 syst 02/17/19 10:15 03/19/19 10:14 Hydralazine HCl (Apresoline) 50 mg Q6HR NG 02/14/19 00:00 03/14/19 17:59 02/17/19 11:26 Insulin Aspart (NovoLOG) EVERY 4 HOURS SUBQ 02/15/19 21:00 03/17/19 20:59 02/17/19 08:35 Insulin Aspart (NovoLOG) 10 units EVERY 4 HOURS SUBQ 02/15/19 21:00 03/17/19 20:59 02/17/19 08:36 Isosorbide Dinitrate (Isordil) 20 mg Q6HR NG 02/15/19 12:00 03/15/19 12:59 02/17/19 11:26 Lansoprazole (Prevacid) 30 mg BID NG 02/12/19 18:00 03/14/19 17:59 02/17/19 08:15 Methylprednisolone Sodium Succinate (Solu-MEDROL) 20 mg EVERY 12 HOURS IVP 02/15/19 21:00 03/12/19 20:59 02/17/19 08:15 Metoprolol Tartrate (Lopressor) 100 mg Q12HR ORAL 02/07/19 21:00 03/08/19 20:59 02/17/19 08:16 Midazolam HCl (Versed 2mg/2ml vial) 1 mg Q2H PRN IVP Agitation 02/13/19 08:45 03/15/19 08:44 02/14/19 05:49 Midazolam HCl 50 mg/Sodium Chloride 100 ml @ 0 mls/hr Q24H IV 02/13/19 15:45 02/20/19 15:44 02/17/19 08:11 Nitroglycerin (Ntg) 0.4 mg Q5M PRN SL Prn Chest Pain 02/07/19 11:00 03/08/19 17:29 02/08/19 07:42 Ondansetron HCl (Zofran) 4 mg Q6H PRN IVP Nausea & Vomiting 02/07/19 11:15 03/08/19 11:14 02/09/19 00:58 Patient Own Medication (Patient's Own Med) 1 ea BID ORAL 02/07/19 18:00 03/09/19 17:59 02/17/19 10:00 Patient Own Medication (Patient's Own Med) 1 ea Q48H ORAL 02/18/19 09:00 03/20/19 08:59 Patient Own Medication (Patient's Own Med) 2 ea DAILY ORAL 02/08/19 09:00 03/10/19 08:59 02/17/19 10:04 Piperacillin Sod/ Tazobactam Sod 3.375 gm/Sodium Chloride 110 ml @ 27.5 mls/hr Q12HR@0600,1800 IVPB 02/16/19 18:00 02/23/19 17:59 02/17/19 05:35 Polyethylene Glycol (Miralax) 17 gm BEDTIME ORAL 02/08/19 21:00 03/10/19 20:59 02/16/19 20:41 Sennosides (Senokot) 8.6 mg DAILY ORAL 02/13/19 12:00 03/15/19 11:59 02/16/19 09:34 Trimethoprim/ Sulfamethoxazole 25 ml/Dextrose 575 ml @ 383.333 mls/hr Q12HR@0000,1200 IV 02/17/19 00:00 02/23/19 23:59 02/16/19 23:36 Vancomycin HCl (Vanco rx to dose) 1 ea DAILY PRN MISC . 02/10/19 19:45 03/12/19 19:44 Carlito Nichols MD Feb 17, 2019 12:04
--- NOTE | 2019-02-17 13:00 | NUR ---
NURSE NOTES: PATIENT CAN'T BE WEAN DUE TO INCREASED BP. WILL CONTINUE TO MONITOR.
[2019-02-17] MEDS: TRIMETHOPRIM IV SCH ×2 (13:15→23:33)
[2019-02-17] MEDS: D5W IV SCH ×2 (13:15→23:33)
[2019-02-17] MEDS: SULFAMETHOXAZOLE IV SCH ×2 (13:15→23:33)
--- NOTE | 2019-02-17 13:49 | Pulmonolgy Critical Care Note ---
Critical Care - Asmt/Plan Assessment/Plan: Pulmonary CCM Progress Note Critical Care - Asmt/Plan Problems: (1) Endotracheally intubated (2) Acute hypoxemic respiratory failure (3) Pneumonia (4) NSTEMI (non-ST elevated myocardial infarction) (5) AIDS (6) HIV disease (7) Hypertension (8) MDD (major depressive disorder), recurrent episode, moderate (9) Anemia (10) CKD (chronic kidney disease) (11) History of stroke (12) Diabetes (13) Anxiety (14) Malignant hypertension Assessment/Plan: VDRF ARDS Acute respiratory failure B pulmonary infiltrates, ? multilobar CAP vs atypical infection vs other ? 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, 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, renal, ID, GI Discussed with: nurses, consultants Critical Care - Objective Vital Signs Noted Status: sedated Condition: critical HEENT: atraumatic, normocephalic, other - ETT OGT Lungs: rales Heart: HR/BP stable Abdomen: soft, non-tender, active bowel sounds Extremities: edema - 2+ Blood Sugars: BS not controlled Critical Care - Subjective ROS Limited/Unobtainable: Yes ICU Day: 12 Intubation Day: 10 Interval Events: Failed SBT Condition: critical IV Access: central, peripheral EKG Rhythm: Sinus Rhythm FI02: 100 Vent Support Breath Rate: 24 Vent Support Mode: AC Vent Tidal Volume: 500 Sputum Amount: Scant PEEP: 5.0 PIP: 37 Fluids: D5W Drips: Versed, Fent Tube Feeding Amount: 50 Subjective: Sedated on fent/versed ET-Tube: 7.5 ET Position: 25 Labs: Laboratory Tests Test 02/16/19 03:30 02/16/19 05:05 02/16/19 08:08 Stool Occult Blood Pending White Blood Count 7.8 K/UL (4.8-10.8) # Red Blood Count 3.26 M/UL (4.70-6.10) L Hemoglobin 8.9 G/DL (14.2-18.0) L Hematocrit 27.8 % (42.0-52.0) L Mean Corpuscular Volume 85 FL (80-99) Mean Corpuscular Hemoglobin 27.5 PG (27.0-31.0) Mean Corpuscular Hemoglobin Concent 32.1 G/DL (32.0-36.0) Red Cell Distribution Width 18.1 % (11.6-14.8) H Platelet Count 253 K/UL (150-450) Mean Platelet Volume 6.4 FL (6.5-10.1) L Neutrophils (%) (Auto) % (45.0-75.0) Lymphocytes (%) (Auto) % (20.0-45.0) Monocytes (%) (Auto) % (1.0-10.0) Eosinophils (%) (Auto) % (0.0-3.0) Basophils (%) (Auto) % (0.0-2.0) Sodium Level 148 MMOL/L (136-145) H Potassium Level 5.8 MMOL/L (3.5-5.1) H Chloride Level 114 MMOL/L (98-107) H Carbon Dioxide Level 28 MMOL/L (21-32) Anion Gap 6 mmol/L (5-15) Blood Urea Nitrogen 71 mg/dL (7-18) H Creatinine 2.6 MG/DL (0.55-1.30) H Estimat Glomerular Filtration Rate 25.4 mL/min (>60) Glucose Level 269 MG/DL (74-106) H Uric Acid 4.8 MG/DL (2.6-7.2) Calcium Level 7.8 MG/DL (8.5-10.1) L Phosphorus Level 4.6 MG/DL (2.5-4.9) Magnesium Level 2.9 MG/DL (1.8-2.4) H Total Bilirubin 0.2 MG/DL (0.2-1.0) Aspartate Amino Transf (AST/SGOT) 32 U/L (15-37) Alanine Aminotransferase (ALT/SGPT) 51 U/L (12-78) Alkaline Phosphatase 157 U/L (46-116) H C-Reactive Protein, Quantitative 2.2 mg/dL (0.00-0.90) H Pro-B-Type Natriuretic Peptide 5575 pg/mL (0-125) H Total Protein 5.7 G/DL (6.4-8.2) L Albumin 2.0 G/DL (3.4-5.0) L Globulin 3.7 g/dL Albumin/Globulin Ratio 0.5 (1.0-2.7) L Random Vancomycin Level 11.4 ug/mL Arterial Blood pH 7.244 (7.350-7.450) Arterial Blood Partial Pressure CO2 59.1 mmHg (35.0-45.0) *H Arterial Blood Partial Pressure O2 63.4 mmHg (75.0-100.0) L Arterial Blood HCO3 25.0 mmol/L (22.0-26.0) Arterial Blood Oxygen Saturation 87.0 % (95-100) *L Arterial Blood Base Excess -3.0 (-2-2) L Benny Test Positive Critical Care - Objective Last 24 Hour Vital Signs Date Time Temp Pulse Resp B/P (MAP) Pulse Ox O2 Delivery O2 Flow Rate FiO2 02/17/19 13:25 186/73 02/17/19 13:00 30 Mechanical Ventilator 40 02/17/19 13:00 30 Mechanical Ventilator 40 02/17/19 13:00 72 30 161/70 (100) 96 02/17/19 12:54 77 30 40 02/17/19 12:30 71 30 159/66 (97) 97 02/17/19 12:03 210/79 02/17/19 12:00 98.4 72 30 182/83 (116) 98 02/17/19 12:00 30 Mechanical Ventilator 40 02/17/19 12:00 30 Mechanical Ventilator 40 02/17/19 12:00 73 02/17/19 12:00 40 02/17/19 11:40 83 30 100 Mechanical Ventilator 40 02/17/19 11:30 78 27 234/105 (148) 99 02/17/19 11:30 80 30 99 Mechanical Ventilator 40 02/17/19 11:26 206/85 6/29/19 11:26 206/85 02/17/19 11:00 24 Mechanical Ventilator 40 02/17/19 11:00 24 Mechanical Ventilator 40 02/17/19 11:00 71 30 205/86 (125) 99 02/17/19 10:48 78 31 40 02/17/19 10:30 81 24 162/109 (126) 100 02/17/19 10:00 78 27 173/80 (111) 99 02/17/19 10:00 27 Mechanical Ventilator 40 02/17/19 10:00 27 Mechanical Ventilator 40 02/17/19 09:30 66 29 159/65 (96) 97 02/17/19 09:00 30 Mechanical Ventilator 40 02/17/19 09:00 30 Mechanical Ventilator 40 02/17/19 09:00 66 30 155/62 (93) 97 02/17/19 08:56 71 30 40 02/17/19 08:30 70 30 149/59 (89) 98 02/17/19 08:16 69 154/69 02/17/19 08:15 69 154/61 02/17/19 08:11 30 Mechanical Ventilator 40 02/17/19 08:00 Mechanical Ventilator Mechanical Ventilator Mechanical Ventilator 02/17/19 08:00 40 02/17/19 08:00 30 Mechanical Ventilator 40 02/17/19 08:00 30 Mechanical Ventilator 40 02/17/19 08:00 98.5 69 30 154/68 (96) 97 02/17/19 07:30 69 30 157/61 (93) 97 02/17/19 07:12 72 30 100 Mechanical Ventilator 40 02/17/19 07:02 67 30 98 Mechanical Ventilator 40 02/17/19 07:00 72 30 162/71 (101) 98 02/17/19 07:00 30 Mechanical Ventilator 40 02/17/19 06:52 67 30 40 02/17/19 06:30 69 30 152/65 (94) 97 02/17/19 06:00 30 Mechanical Ventilator 40 02/17/19 06:00 70 30 144/59 (87) 97 02/17/19 05:33 162/74 02/17/19 05:33 162/74 02/17/19 05:30 72 30 162/70 (100) 100 02/17/19 05:26 74 30 40 02/17/19 05:00 79 25 188/87 (120) 99 02/17/19 05:00 30 Mechanical Ventilator 40 02/17/19 04:59 192/77 02/17/19 04:45 30 Mechanical Ventilator 40 02/17/19 04:30 85 30 192/84 (120) 99 02/17/19 04:30 30 Mechanical Ventilator 40 02/17/19 04:00 98.0 78 30 184/84 (117) 97 02/17/19 04:00 Mechanical Ventilator Mechanical Ventilator Mechanical Ventilator 02/17/19 04:00 30 Mechanical Ventilator 40 02/17/19 04:00 40 02/17/19 03:37 71 30 98 Mechanical Ventilator 40 02/17/19 03:31 71 02/17/19 03:30 72 30 172/72 (105) 99 02/17/19 03:27 70 30 97 Mechanical Ventilator 40 02/17/19 03:26 70 30 40 02/17/19 03:05 166/67 02/17/19 03:00 69 30 166/66 (99) 97 02/17/19 03:00 30 Mechanical Ventilator 40 02/17/19 02:30 70 30 167/67 (100) 97 02/17/19 02:15 30 Mechanical Ventilator 40 02/17/19 02:00 70 30 167/69 (101) 96 02/17/19 02:00 30 Mechanical Ventilator 40 02/17/19 01:45 30 Mechanical Ventilator 40 02/17/19 01:36 30 Mechanical Ventilator 40 02/17/19 01:30 72 30 171/73 (105) 97 02/17/19 01:10 69 30 40 02/17/19 01:00 30 Mechanical Ventilator 40 02/17/19 01:00 69 30 161/86 (111) 96 02/17/19 00:30 68 30 163/70 (101) 95 02/17/19 00:00 97.4 68 30 159/66 (97) 96 02/17/19 00:00 30 Mechanical Ventilator 40 02/17/19 00:00 40 02/17/19 00:00 Mechanical Ventilator Mechanical Ventilator Mechanical Ventilator 02/16/19 23:49 68 02/16/19 23:38 75 30 100 Mechanical Ventilator 40 02/16/19 23:36 168/68 02/16/19 23:36 168/68 02/16/19 23:30 68 30 168/68 (101) 98 02/16/19 23:28 67 30 97 Mechanical Ventilator 40 02/16/19 23:27 67 30 40 02/16/19 23:00 67 30 164/66 (98) 96 02/16/19 23:00 30 Mechanical Ventilator 40 02/16/19 22:55 167/47 02/16/19 22:30 68 30 167/67 (100) 96 02/16/19 22:27 30 Mechanical Ventilator 40 02/16/19 22:00 68 30 161/65 (97) 97 02/16/19 22:00 30 Mechanical Ventilator 40 02/16/19 21:30 70 30 160/64 (96) 98 02/16/19 21:17 30 40 02/16/19 21:00 76 30 163/65 (97) 99 02/16/19 21:00 30 Mechanical Ventilator 40 02/16/19 20:55 82 30 40 02/16/19 20:45 78 30 165/65 (98) 98 02/16/19 20:41 78 162/66 02/16/19 20:30 80 30 162/66 (98) 97 02/16/19 20:30 30 Mechanical Ventilator 40 02/16/19 20:15 20 Mechanical Ventilator 40 02/16/19 20:15 94 22 187/85 (119) 97 02/16/19 20:00 40 02/16/19 20:00 Mechanical Ventilator Mechanical Ventilator Mechanical Ventilator 02/16/19 20:00 22 Mechanical Ventilator 40 02/16/19 20:00 98.7 82 22 166/70 (102) 97 02/16/19 19:45 Mechanical Ventilator 40 02/16/19 19:45 85 18 168/78 (108) 96 02/16/19 19:30 79 27 155/64 (94) 99 02/16/19 19:30 27 Mechanical Ventilator 40 02/16/19 19:26 82 02/16/19 19:25 74 30 100 Mechanical Ventilator 40 02/16/19 19:16 76 30 100 Mechanical Ventilator 40 02/16/19 19:15 76 30 40 02/16/19 19:00 77 30 142/64 (90) 97 02/16/19 19:00 30 Mechanical Ventilator 02/16/19 19:00 30 Mechanical Ventilator 02/16/19 18:30 76 30 158/62 (94) 97 02/16/19 18:00 76 30 158/62 (94) 97 02/16/19 18:00 30 Mechanical Ventilator 02/16/19 18:00 30 Mechanical Ventilator 02/16/19 17:30 134/63 02/16/19 17:30 98.4 75 30 136/62 (86) 97 02/16/19 17:29 134/63 02/16/19 17:05 75 30 50 02/16/19 17:00 98.4 72 30 132/76 (94) 97 02/16/19 17:00 30 Mechanical Ventilator 02/16/19 17:00 30 Mechanical Ventilator 02/16/19 16:30 75 30 158/74 (102) 97 02/16/19 16:00 72 02/16/19 16:00 40 02/16/19 16:00 Mechanical Ventilator Mechanical Ventilator Mechanical Ventilator 02/16/19 16:00 98.4 72 30 136/62 (86) 95 02/16/19 16:00 30 Mechanical Ventilator 02/16/19 16:00 30 Mechanical Ventilator 02/16/19 15:30 72 30 137/66 (89) 94 02/16/19 15:00 30 Mechanical Ventilator 02/16/19 15:00 30 Mechanical Ventilator 02/16/19 15:00 30 Mechanical Ventilator 02/16/19 15:00 72 30 132/65 (87) 95 02/16/19 14:55 72 30 98 Mechanical Ventilator 40 02/16/19 14:45 74 30 50 02/16/19 14:45 74 30 100 Mechanical Ventilator 40 02/16/19 14:30 71 30 133/66 (88) 96 02/16/19 14:00 30 Mechanical Ventilator 02/16/19 14:00 30 Mechanical Ventilator 02/16/19 14:00 71 30 133/65 (87) 96 Accucheck: 284 Critical Care - Subjective ROS Limited/Unobtainable: No Condition: stable FI02: 40 Vent Support Breath Rate: 30 Vent Support Mode: AC Vent Tidal Volume: 550 Sputum Amount: Scant PEEP: 5.0 PIP: 38 Tube Feeding Amount: 43 I&O: Intake and Output 02/16/19 02/17/19 18:59 06:59 Intake Total 2024.000 ml 2794.0 ml Output Total 1575 ml 2520 ml Balance 449.000 ml 274.0 ml Free Water 120 ml IV Total 1360.000 ml 2110.0 ml Tube Feeding 544 ml 344 ml Other 340 ml Output Urine Total 1575 ml 2520 ml # Bowel Movements 5 4 ET-Tube: 7.5 ET Position: 25 Salty Yan MD Feb 17, 2019 13:49
--- NOTE | 2019-02-17 13:58 | Surgery Progress Note ---
Surgery Progress Note Subjective Procedure Performed left femoral temporary Hemodialysis catheter insertion Additional Comments ill appearing in ICU anasarca on vent support labs noted Objective Last 24 Hour Vital Signs Date Time Temp Pulse Resp B/P (MAP) Pulse Ox O2 Delivery O2 Flow Rate FiO2 02/17/19 13:25 186/73 02/17/19 13:00 30 Mechanical Ventilator 40 02/17/19 13:00 30 Mechanical Ventilator 40 02/17/19 13:00 72 30 161/70 (100) 96 02/17/19 12:54 77 30 40 02/17/19 12:30 71 30 159/66 (97) 97 02/17/19 12:03 210/79 02/17/19 12:00 98.4 72 30 182/83 (116) 98 02/17/19 12:00 30 Mechanical Ventilator 40 02/17/19 12:00 30 Mechanical Ventilator 40 02/17/19 12:00 73 02/17/19 12:00 40 02/17/19 11:40 83 30 100 Mechanical Ventilator 40 02/17/19 11:30 78 27 234/105 (148) 99 02/17/19 11:30 80 30 99 Mechanical Ventilator 40 02/17/19 11:26 206/85 02/17/19 11:26 206/85 02/17/19 11:00 24 Mechanical Ventilator 40 02/17/19 11:00 24 Mechanical Ventilator 40 02/17/19 11:00 71 30 205/86 (125) 99 02/17/19 10:48 78 31 40 02/17/19 10:30 81 24 162/109 (126) 100 02/17/19 10:00 78 27 173/80 (111) 99 02/17/19 10:00 27 Mechanical Ventilator 40 02/17/19 10:00 27 Mechanical Ventilator 40 02/17/19 09:30 66 29 159/65 (96) 97 02/17/19 09:00 30 Mechanical Ventilator 40 02/17/19 09:00 30 Mechanical Ventilator 40 02/17/19 09:00 66 30 155/62 (93) 97 02/17/19 08:56 71 30 40 02/17/19 08:30 70 30 149/59 (89) 98 02/17/19 08:16 69 154/69 02/17/19 08:15 69 154/61 02/17/19 08:11 30 Mechanical Ventilator 40 02/17/19 08:00 Mechanical Ventilator Mechanical Ventilator Mechanical Ventilator 02/17/19 08:00 40 02/17/19 08:00 30 Mechanical Ventilator 40 02/17/19 08:00 30 Mechanical Ventilator 40 02/17/19 08:00 98.5 69 30 154/68 (96) 97 02/17/19 07:30 69 30 157/61 (93) 97 02/17/19 07:12 72 30 100 Mechanical Ventilator 40 02/17/19 07:02 67 30 98 Mechanical Ventilator 40 02/17/19 07:00 72 30 162/71 (101) 98 02/17/19 07:00 30 Mechanical Ventilator 40 02/17/19 06:52 67 30 40 02/17/19 06:30 69 30 152/65 (94) 97 02/17/19 06:00 30 Mechanical Ventilator 40 02/17/19 06:00 70 30 144/59 (87) 97 02/17/19 05:33 162/74 02/17/19 05:33 162/74 02/17/19 05:30 72 30 162/70 (100) 100 02/17/19 05:26 74 30 40 02/17/19 05:00 79 25 188/87 (120) 99 02/17/19 05:00 30 Mechanical Ventilator 40 02/17/19 04:59 192/77 02/17/19 04:45 30 Mechanical Ventilator 40 02/17/19 04:30 85 30 192/84 (120) 99 02/17/19 04:30 30 Mechanical Ventilator 40 02/17/19 04:00 98.0 78 30 184/84 (117) 97 02/17/19 04:00 Mechanical Ventilator Mechanical Ventilator Mechanical Ventilator 02/17/19 04:00 30 Mechanical Ventilator 40 02/17/19 04:00 40 02/17/19 03:37 71 30 98 Mechanical Ventilator 40 02/17/19 03:31 71 02/17/19 03:30 72 30 172/72 (105) 99 02/17/19 03:27 70 30 97 Mechanical Ventilator 40 02/17/19 03:26 70 30 40 02/17/19 03:05 166/67 02/17/19 03:00 69 30 166/66 (99) 97 02/17/19 03:00 30 Mechanical Ventilator 40 02/17/19 02:30 70 30 167/67 (100) 97 02/17/19 02:15 30 Mechanical Ventilator 40 02/17/19 02:00 70 30 167/69 (101) 96 02/17/19 02:00 30 Mechanical Ventilator 40 02/17/19 01:45 30 Mechanical Ventilator 40 02/17/19 01:36 30 Mechanical Ventilator 40 02/17/19 01:30 72 30 171/73 (105) 97 02/17/19 01:10 69 30 40 02/17/19 01:00 30 Mechanical Ventilator 40 02/17/19 01:00 69 30 161/86 (111) 96 02/17/19 00:30 68 30 163/70 (101) 95 02/17/19 00:00 97.4 68 30 159/66 (97) 96 02/17/19 00:00 30 Mechanical Ventilator 40 02/17/19 00:00 40 02/17/19 00:00 Mechanical Ventilator Mechanical Ventilator Mechanical Ventilator 02/16/19 23:49 68 02/16/19 23:38 75 30 100 Mechanical Ventilator 40 02/16/19 23:36 168/68 02/16/19 23:36 168/68 02/16/19 23:30 68 30 168/68 (101) 98 02/16/19 23:28 67 30 97 Mechanical Ventilator 40 02/16/19 23:27 67 30 40 02/16/19 23:00 67 30 164/66 (98) 96 02/16/19 23:00 30 Mechanical Ventilator 40 02/16/19 22:55 167/47 02/16/19 22:30 68 30 167/67 (100) 96 02/16/19 22:27 30 Mechanical Ventilator 40 02/16/19 22:00 68 30 161/65 (97) 97 02/16/19 22:00 30 Mechanical Ventilator 40 02/16/19 21:30 70 30 160/64 (96) 98 02/16/19 21:17 30 40 02/16/19 21:00 76 30 163/65 (97) 99 02/16/19 21:00 30 Mechanical Ventilator 40 02/16/19 20:55 82 30 40 02/16/19 20:45 78 30 165/65 (98) 98 02/16/19 20:41 78 162/66 02/16/19 20:30 80 30 162/66 (98) 97 02/16/19 20:30 30 Mechanical Ventilator 40 02/16/19 20:15 20 Mechanical Ventilator 40 02/16/19 20:15 94 22 187/85 (119) 97 02/16/19 20:00 40 02/16/19 20:00 Mechanical Ventilator Mechanical Ventilator Mechanical Ventilator 02/16/19 20:00 22 Mechanical Ventilator 40 02/16/19 20:00 98.7 82 22 166/70 (102) 97 02/16/19 19:45 Mechanical Ventilator 40 02/16/19 19:45 85 18 168/78 (108) 96 02/16/19 19:30 79 27 155/64 (94) 99 02/16/19 19:30 27 Mechanical Ventilator 40 02/16/19 19:26 82 02/16/19 19:25 74 30 100 Mechanical Ventilator 40 02/16/19 19:16 76 30 100 Mechanical Ventilator 40 02/16/19 19:15 76 30 40 02/16/19 19:00 77 30 142/64 (90) 97 02/16/19 19:00 30 Mechanical Ventilator 02/16/19 19:00 30 Mechanical Ventilator 02/16/19 18:30 76 30 158/62 (94) 97 02/16/19 18:00 76 30 158/62 (94) 97 02/16/19 18:00 30 Mechanical Ventilator 02/16/19 18:00 30 Mechanical Ventilator 02/16/19 17:30 134/63 02/16/19 17:30 98.4 75 30 136/62 (86) 97 02/16/19 17:29 134/63 02/16/19 17:05 75 30 50 02/16/19 17:00 98.4 72 30 132/76 (94) 97 02/16/19 17:00 30 Mechanical Ventilator 02/16/19 17:00 30 Mechanical Ventilator 02/16/19 16:30 75 30 158/74 (102) 97 02/16/19 16:00 72 02/16/19 16:00 40 02/16/19 16:00 Mechanical Ventilator Mechanical Ventilator Mechanical Ventilator 02/16/19 16:00 98.4 72 30 136/62 (86) 95 02/16/19 16:00 30 Mechanical Ventilator 02/16/19 16:00 30 Mechanical Ventilator 02/16/19 15:30 72 30 137/66 (89) 94 02/16/19 15:00 30 Mechanical Ventilator 02/16/19 15:00 30 Mechanical Ventilator 02/16/19 15:00 30 Mechanical Ventilator 02/16/19 15:00 72 30 132/65 (87) 95 02/16/19 14:55 72 30 98 Mechanical Ventilator 40 02/16/19 14:45 74 30 50 02/16/19 14:45 74 30 100 Mechanical Ventilator 40 02/16/19 14:30 71 30 133/66 (88) 96 02/16/19 14:00 30 Mechanical Ventilator 02/16/19 14:00 30 Mechanical Ventilator 02/16/19 14:00 71 30 133/65 (87) 96 I&O Intake and Output 02/16/19 02/17/19 18:59 06:59 Intake Total 2024.000 ml 2794.0 ml Output Total 1575 ml 2520 ml Balance 449.000 ml 274.0 ml Free Water 120 ml IV Total 1360.000 ml 2110.0 ml Tube Feeding 544 ml 344 ml Other 340 ml Output Urine Total 1575 ml 2520 ml # Bowel Movements 5 4 Dressing: saturated Wound: clean Cardiovascular: RSR Respiratory: clear Abdomen: soft, decreased bowel sounds Extremities: edema, no cyanosis Laboratory Tests Test 02/17/19 05:00 White Blood Count 6.0 K/UL (4.8-10.8) Red Blood Count 3.11 M/UL (4.70-6.10) L Hemoglobin 8.7 G/DL (14.2-18.0) L Hematocrit 27.1 % (42.0-52.0) L Mean Corpuscular Volume 87 FL (80-99) Mean Corpuscular Hemoglobin 27.9 PG (27.0-31.0) Mean Corpuscular Hemoglobin Concent 32.0 G/DL (32.0-36.0) Red Cell Distribution Width 17.6 % (11.6-14.8) H Platelet Count 245 K/UL (150-450) Mean Platelet Volume 5.9 FL (6.5-10.1) L Neutrophils (%) (Auto) 81.3 % (45.0-75.0) H Lymphocytes (%) (Auto) 9.6 % (20.0-45.0) L Monocytes (%) (Auto) 8.4 % (1.0-10.0) Eosinophils (%) (Auto) 0.4 % (0.0-3.0) Basophils (%) (Auto) 0.4 % (0.0-2.0) Sodium Level 142 MMOL/L (136-145) Potassium Level 4.3 MMOL/L (3.5-5.1) Chloride Level 108 MMOL/L (98-107) H Carbon Dioxide Level 25 MMOL/L (21-32) Anion Gap 9 mmol/L (5-15) Blood Urea Nitrogen 67 mg/dL (7-18) H Creatinine 2.5 MG/DL (0.55-1.30) H Estimat Glomerular Filtration Rate 26.6 mL/min (>60) Glucose Level 308 MG/DL (74-106) H Uric Acid 3.8 MG/DL (2.6-7.2) Calcium Level 7.9 MG/DL (8.5-10.1) L Phosphorus Level 3.7 MG/DL (2.5-4.9) Magnesium Level 2.4 MG/DL (1.8-2.4) Total Bilirubin 0.2 MG/DL (0.2-1.0) Aspartate Amino Transf (AST/SGOT) 36 U/L (15-37) Alanine Aminotransferase (ALT/SGPT) 46 U/L (12-78) Alkaline Phosphatase 139 U/L (46-116) H C-Reactive Protein, Quantitative 1.7 mg/dL (0.00-0.90) H Pro-B-Type Natriuretic Peptide 5368 pg/mL (0-125) H Total Protein 5.2 G/DL (6.4-8.2) L Albumin 1.9 G/DL (3.4-5.0) L Globulin 3.3 g/dL Albumin/Globulin Ratio 0.6 (1.0-2.7) L Plan Problems: (1) Hypoxia Assessment & Plan: Extensive bilateral upper lobe infiltrates likely inflammatory/infectious. Correlate clinically. Tuberculosis is not excludable. Bilateral pleural effusions. Endotracheal tube and nasogastric tube in good position Atherosclerotic vascular disease (2) Respiratory distress Assessment & Plan: AM CXR pulm input appreciated (3) Sepsis Assessment & Plan: Sepsis with tachycardia, leukocytosis, abnormal labs, respiratory distress on vent support via ET tube, acidosis. Cont IV abx CXR noted appreciate ICU team care abnormal lft's US noted will need temp HD line as will benefit from HD will cont to follow with recs trend labs Rx as written Moiz Costa Feb 17, 2019 13:58
[2019-02-17] MEDS: fentaNYL Citrate 2,500 MCG in NS 200 ML IV SCH (14:20)
--- NOTE | 2019-02-17 14:42 | NUR ---
NURSE NOTES: SEE AND EXAMINED BY DR CAMPOS. WILL CONTINUE TO MONITOR.
--- NOTE | 2019-02-17 15:26 | General Progress Note ---
Assessment/Plan Status: stable Assessment/Plan: 58 y Male admitted to the hospital due to fever, shortness of breath and chest pain. # Multilobar pneumonia in patient with HIV- worse # Acute Hypoxemic respiratory failure # ARDS - improved - Broad sp atbx. Will continue Zosyn, Vancomycin and Azithromycin - Bactrim added for PCP coverage - Droplet precaution -DCed - Oxygen support - ID consult appreciated. AFB, cocci, hystoplasma, legionella, ordered. . - Patient s/p emergent bronchoscopy given florid ARDS - Cont mechanical ventilation, settings per pulmonary # NSTEMI - EKG with bifascicular block RBB and LAFB, no ST changes. - Trend troponin x3 - ECHO completed with no WMA and preserved EF. Dr. Francois consulted. Consideration for outpatient cath vs possibly myocarditis due to underlying viral infection. No evidence of Takotsubo per TTE. - NGT prn - Pain control with morphine # HIV - Continue HARRT - VL is undetectable per patient report. 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 BP noted to be elevated likely 2/2 agitation. Objective Last 24 Hour Vital Signs Date Time Temp Pulse Resp B/P (MAP) Pulse Ox O2 Delivery O2 Flow Rate FiO2 02/17/19 15:06 30 30 100 Mechanical Ventilator 40 02/17/19 15:04 85 30 40 02/17/19 15:00 83 30 197/159 (172) 100 02/17/19 14:30 90 30 230/139 (169) 99 02/17/19 14:20 30 Mechanical Ventilator 40 02/17/19 14:15 69 30 203/76 (118) 98 02/17/19 14:00 69 30 186/70 (108) 98 02/17/19 14:00 30 40 02/17/19 13:30 70 30 186/70 (108) 97 02/17/19 13:25 186/73 02/17/19 13:00 30 Mechanical Ventilator 40 02/17/19 13:00 30 Mechanical Ventilator 40 02/17/19 13:00 72 30 161/70 (100) 96 02/17/19 12:54 77 30 40 02/17/19 12:30 71 30 159/66 (97) 97 02/17/19 12:03 210/79 02/17/19 12:00 Mechanical Ventilator Mechanical Ventilator Mechanical Ventilator 02/17/19 12:00 98.4 72 30 182/83 (116) 98 02/17/19 12:00 30 Mechanical Ventilator 40 02/17/19 12:00 30 Mechanical Ventilator 40 02/17/19 12:00 73 02/17/19 12:00 40 02/17/19 11:40 83 30 100 Mechanical Ventilator 40 02/17/19 11:30 78 27 234/105 (148) 99 02/17/19 11:30 80 30 99 Mechanical Ventilator 40 02/17/19 11:26 206/85 02/17/19 11:26 206/85 02/17/19 11:00 24 Mechanical Ventilator 40 02/17/19 11:00 24 Mechanical Ventilator 40 02/17/19 11:00 71 30 205/86 (125) 99 02/17/19 10:48 78 31 40 02/17/19 10:30 81 24 162/109 (126) 100 02/17/19 10:00 78 27 173/80 (111) 99 02/17/19 10:00 27 Mechanical Ventilator 40 02/17/19 10:00 27 Mechanical Ventilator 40 02/17/19 09:30 66 29 159/65 (96) 97 02/17/19 09:00 30 Mechanical Ventilator 40 02/17/19 09:00 30 Mechanical Ventilator 40 02/17/19 09:00 66 30 155/62 (93) 97 02/17/19 08:56 71 30 40 02/17/19 08:30 70 30 149/59 (89) 98 02/17/19 08:16 69 154/69 02/17/19 08:15 69 154/61 02/17/19 08:11 30 Mechanical Ventilator 40 02/17/19 08:00 Mechanical Ventilator Mechanical Ventilator Mechanical Ventilator 02/17/19 08:00 40 02/17/19 08:00 30 Mechanical Ventilator 40 02/17/19 08:00 30 Mechanical Ventilator 40 02/17/19 08:00 98.5 69 30 154/68 (96) 97 02/17/19 07:30 69 30 157/61 (93) 97 02/17/19 07:12 72 30 100 Mechanical Ventilator 40 02/17/19 07:02 67 30 98 Mechanical Ventilator 40 02/17/19 07:00 72 30 162/71 (101) 98 02/17/19 07:00 30 Mechanical Ventilator 40 02/17/19 06:52 67 30 40 02/17/19 06:30 69 30 152/65 (94) 97 02/17/19 06:00 30 Mechanical Ventilator 40 02/17/19 06:00 70 30 144/59 (87) 97 02/17/19 05:33 162/74 02/17/19 05:33 162/74 02/17/19 05:30 72 30 162/70 (100) 100 02/17/19 05:26 74 30 40 02/17/19 05:00 79 25 188/87 (120) 99 02/17/19 05:00 30 Mechanical Ventilator 40 02/17/19 04:59 192/77 02/17/19 04:45 30 Mechanical Ventilator 40 02/17/19 04:30 85 30 192/84 (120) 99 02/17/19 04:30 30 Mechanical Ventilator 40 02/17/19 04:00 98.0 78 30 184/84 (117) 97 02/17/19 04:00 Mechanical Ventilator Mechanical Ventilator Mechanical Ventilator 02/17/19 04:00 30 Mechanical Ventilator 40 02/17/19 04:00 40 02/17/19 03:37 71 30 98 Mechanical Ventilator 40 02/17/19 03:31 71 02/17/19 03:30 72 30 172/72 (105) 99 02/17/19 03:27 70 30 97 Mechanical Ventilator 40 02/17/19 03:26 70 30 40 02/17/19 03:05 166/67 02/17/19 03:00 69 30 166/66 (99) 97 02/17/19 03:00 30 Mechanical Ventilator 40 02/17/19 02:30 70 30 167/67 (100) 97 02/17/19 02:15 30 Mechanical Ventilator 40 02/17/19 02:00 70 30 167/69 (101) 96 02/17/19 02:00 30 Mechanical Ventilator 40 02/17/19 01:45 30 Mechanical Ventilator 40 02/17/19 01:36 30 Mechanical Ventilator 40 02/17/19 01:30 72 30 171/73 (105) 97 02/17/19 01:10 69 30 40 02/17/19 01:00 30 Mechanical Ventilator 40 02/17/19 01:00 69 30 161/86 (111) 96 02/17/19 00:30 68 30 163/70 (101) 95 02/17/19 00:00 97.4 68 30 159/66 (97) 96 02/17/19 00:00 30 Mechanical Ventilator 40 02/17/19 00:00 40 02/17/19 00:00 Mechanical Ventilator Mechanical Ventilator Mechanical Ventilator 02/16/19 23:49 68 02/16/19 23:38 75 30 100 Mechanical Ventilator 40 02/16/19 23:36 168/68 02/16/19 23:36 168/68 02/16/19 23:30 68 30 168/68 (101) 98 02/16/19 23:28 67 30 97 Mechanical Ventilator 40 02/16/19 23:27 67 30 40 02/16/19 23:00 67 30 164/66 (98) 96 02/16/19 23:00 30 Mechanical Ventilator 40 02/16/19 22:55 167/47 02/16/19 22:30 68 30 167/67 (100) 96 02/16/19 22:27 30 Mechanical Ventilator 40 02/16/19 22:00 68 30 161/65 (97) 97 02/16/19 22:00 30 Mechanical Ventilator 40 02/16/19 21:30 70 30 160/64 (96) 98 02/16/19 21:17 30 40 02/16/19 21:00 76 30 163/65 (97) 99 02/16/19 21:00 30 Mechanical Ventilator 40 02/16/19 20:55 82 30 40 02/16/19 20:45 78 30 165/65 (98) 98 02/16/19 20:41 78 162/66 6/28/19 20:30 80 30 162/66 (98) 97 02/16/19 20:30 30 Mechanical Ventilator 40 02/16/19 20:15 20 Mechanical Ventilator 40 02/16/19 20:15 94 22 187/85 (119) 97 02/16/19 20:00 40 02/16/19 20:00 Mechanical Ventilator Mechanical Ventilator Mechanical Ventilator 02/16/19 20:00 22 Mechanical Ventilator 40 02/16/19 20:00 98.7 82 22 166/70 (102) 97 02/16/19 19:45 Mechanical Ventilator 40 02/16/19 19:45 85 18 168/78 (108) 96 02/16/19 19:30 79 27 155/64 (94) 99 02/16/19 19:30 27 Mechanical Ventilator 40 02/16/19 19:26 82 02/16/19 19:25 74 30 100 Mechanical Ventilator 40 02/16/19 19:16 76 30 100 Mechanical Ventilator 40 02/16/19 19:15 76 30 40 02/16/19 19:00 77 30 142/64 (90) 97 02/16/19 19:00 30 Mechanical Ventilator 02/16/19 19:00 30 Mechanical Ventilator 02/16/19 18:30 76 30 158/62 (94) 97 02/16/19 18:00 76 30 158/62 (94) 97 02/16/19 18:00 30 Mechanical Ventilator 02/16/19 18:00 30 Mechanical Ventilator 02/16/19 17:30 134/63 02/16/19 17:30 98.4 75 30 136/62 (86) 97 02/16/19 17:29 134/63 02/16/19 17:05 75 30 50 02/16/19 17:00 98.4 72 30 132/76 (94) 97 02/16/19 17:00 30 Mechanical Ventilator 02/16/19 17:00 30 Mechanical Ventilator 02/16/19 16:30 75 30 158/74 (102) 97 02/16/19 16:00 72 02/16/19 16:00 40 02/16/19 16:00 Mechanical Ventilator Mechanical Ventilator Mechanical Ventilator 02/16/19 16:00 98.4 72 30 136/62 (86) 95 02/16/19 16:00 30 Mechanical Ventilator 02/16/19 16:00 30 Mechanical Ventilator 02/16/19 15:30 72 30 137/66 (89) 94 Intake and Output 02/16/19 02/17/19 18:59 06:59 Intake Total 2024.000 ml 2794.0 ml Output Total 1575 ml 2520 ml Balance 449.000 ml 274.0 ml Free Water 120 ml IV Total 1360.000 ml 2110.0 ml Tube Feeding 544 ml 344 ml Other 340 ml Output Urine Total 1575 ml 2520 ml # Bowel Movements 5 4 Laboratory Tests 02/17/19 05:00: White Blood Count 6.0, Red Blood Count 3.11L, Hemoglobin 8.7L, Hematocrit 27.1L , Mean Corpuscular Volume 87, Mean Corpuscular Hemoglobin 27.9, Mean Corpuscular Hemoglobin Concent 32.0, Red Cell Distribution Width 17.6H, Platelet Count 245, Mean Platelet Volume 5.9L, Neutrophils (%) (Auto) 81.3H, Lymphocytes (%) (Auto) 9.6L, Monocytes (%) (Auto) 8.4, Eosinophils (%) (Auto) 0.4, Basophils (%) (Auto) 0.4, Sodium Level 142, Potassium Level 4.3, Chloride Level 108H, Carbon Dioxide Level 25, Anion Gap 9, Blood Urea Nitrogen 67H, Creatinine 2.5H, Estimat Glomerular Filtration Rate 26.6, Glucose Level 308H, Uric Acid 3.8, Calcium Level 7.9L, Phosphorus Level 3.7, Magnesium Level 2.4, Total Bilirubin 0.2, Aspartate Amino Transf (AST/SGOT) 36, Alanine Aminotransferase (ALT/SGPT) 46, Alkaline Phosphatase 139H, C-Reactive Protein, Quantitative 1.7H, Pro-B-Type Natriuretic Peptide 5368H, Total Protein 5.2L, Albumin 1.9L, Globulin 3.3, Albumin/Globulin Ratio 0.6L Height (Feet): 6 Height (Inches): 0.00 Weight (Pounds): 269 Objective General Appearance: Intubated, sedated. WD/WN, no apparent distress EENT: intubated Neck: non-tender, normal alignment Cardiovascular: normal peripheral pulses, normal rate Respiratory/Chest: chest wall non-tender, lungs clear Abdomen: normal bowel sounds, non tender Extremities: normal range of motion, non-tender Edema: trace edema Neurologic: hand ii cutter II-XII grossly normal Sonja Douglas MD Feb 17, 2019 15:26
--- NOTE | 2019-02-17 16:30 | NUR ---
NURSE NOTES: NOTED ELEVATED BP. AWAITING FOR CALL BACK FROM DR HERRERA. WILL CONTINUE OT MONITOR
--- NOTE | 2019-02-17 18:00 | NUR ---
NURSE NOTES: PATIENT KEPT CLEAN AND DRY. TOLERATED VENT SETTINGS AND FEEDING. NO SIGNS OF DISTRESS. WILL CONTINUE TO MONITOR.
--- NOTE | 2019-02-17 19:15 | NUR ---
HAND-OFF: Report given to Kei Washburn RN.
--- NOTE | 2019-02-17 19:16 | NUR ---
RESPIRATORY NOTE: Received pt on AC 30, 550VT, 40%, PEEP +5. Pt intubated w/ ETT 7.5 @ 25cm lipline, secured by anchorfast. Pt sedated. B/S elina. rhonchi, sxn minimal amounts of thick/thin, pale-yellow secretions. Bite block in place as pt tends to clench his jaw. Both hands on soft-restraint to prevent pt from self-extubation. Vent plugged into red outlet, ambubag at bedside. Pt in no apparent distress at this time. Will continue to monitor pt.
[2019-02-17] MEDS: Dyna-Hex 2% Top Sol 2oz TOPIC SCH (19:34)
--- NOTE | 2019-02-17 19:48 | NUR ---
NURSE NOTES: PATIENT ON SEDATED BUT EASILY WAKE UP WHEN TOUCH, ON ETT TO VENT, AC 30/TV 550/FIO2 40%/PEEP 5, O2 SATURATION OVER 97% NOTED, OGT TUBE INTACT AND PATENT, ONGOING NEPRO AT 43ML/HR, RESIDUE 40ML NOTED, ABDOMEN DISTENDED, NON TENDER, KEPT HOB OVER 30 DEGREES, F/C INTACT AND PATENT, YELLOW URINE OUTED, JOAN CATH WITH PIG TAIL TO LEFT FEMORAL AND PERIPHERAL LINE TO LEFT WRIST, INTACT AND PATENT, ONGOING D5W AT 50ML/HR VIA PERIPHERAL LINE, FENTANYL DRIP 200MCG/HR AND VERSED DRIP 10MG/HR VIA JOAN W/ PIG TAIL STATU, 2 POINT SOFT RESTRAINT STATUS, SCD'S TO BOTH LOWER LEGS, MADE LOWER BED POSITION AND PROVIDED CALL LIGHT WITHIN REACH, WILL CONTINUE TO MONITOR.
[2019-02-17] MEDS: Miralax 17gm pkt ORAL SCH (20:43)
[2019-02-17] MEDS: Enoxaparin 40mg Inj SUBQ SCH (20:44)
--- NOTE | 2019-02-17 21:19 | Neurology Progress Note ---
Interim History Interim History ROS Limited/Unobtainable: Yes Events: This Visit was performed on February 17, [address] Mayito Escobar. Review of Systems All Systems: reviewed and negative except above Objective Physical Exam Last Vital Signs Date Time Temp Pulse Resp B/P (MAP) Pulse Ox O2 Delivery O2 Flow Rate FiO2 02/17/19 21:09 77 31 40 02/17/19 21:00 151/67 (95) 100 02/17/19 21:00 Mechanical Ventilator 02/17/19 20:00 98.4 02/14/19 17:39 50.0 Laboratory Tests Test 02/17/19 05:00 White Blood Count 6.0 K/UL (4.8-10.8) Red Blood Count 3.11 M/UL (4.70-6.10) L Hemoglobin 8.7 G/DL (14.2-18.0) L Hematocrit 27.1 % (42.0-52.0) L Mean Corpuscular Volume 87 FL (80-99) Mean Corpuscular Hemoglobin 27.9 PG (27.0-31.0) Mean Corpuscular Hemoglobin Concent 32.0 G/DL (32.0-36.0) Red Cell Distribution Width 17.6 % (11.6-14.8) H Platelet Count 245 K/UL (150-450) Mean Platelet Volume 5.9 FL (6.5-10.1) L Neutrophils (%) (Auto) 81.3 % (45.0-75.0) H Lymphocytes (%) (Auto) 9.6 % (20.0-45.0) L Monocytes (%) (Auto) 8.4 % (1.0-10.0) Eosinophils (%) (Auto) 0.4 % (0.0-3.0) Basophils (%) (Auto) 0.4 % (0.0-2.0) Sodium Level 142 MMOL/L (136-145) Potassium Level 4.3 MMOL/L (3.5-5.1) Chloride Level 108 MMOL/L (98-107) H Carbon Dioxide Level 25 MMOL/L (21-32) Anion Gap 9 mmol/L (5-15) Blood Urea Nitrogen 67 mg/dL (7-18) H Creatinine 2.5 MG/DL (0.55-1.30) H Estimat Glomerular Filtration Rate 26.6 mL/min (>60) Glucose Level 308 MG/DL (74-106) H Uric Acid 3.8 MG/DL (2.6-7.2) Calcium Level 7.9 MG/DL (8.5-10.1) L Phosphorus Level 3.7 MG/DL (2.5-4.9) Magnesium Level 2.4 MG/DL (1.8-2.4) Total Bilirubin 0.2 MG/DL (0.2-1.0) Aspartate Amino Transf (AST/SGOT) 36 U/L (15-37) Alanine Aminotransferase (ALT/SGPT) 46 U/L (12-78) Alkaline Phosphatase 139 U/L (46-116) H C-Reactive Protein, Quantitative 1.7 mg/dL (0.00-0.90) H Pro-B-Type Natriuretic Peptide 5368 pg/mL (0-125) H Total Protein 5.2 G/DL (6.4-8.2) L Albumin 1.9 G/DL (3.4-5.0) L Globulin 3.3 g/dL Albumin/Globulin Ratio 0.6 (1.0-2.7) L General: well developed, well nourished, other Head: normocophalic, other Neck: no rigidity EENT: other Neurologic Exam Mental Status: other Speech: other Language: other Cranial Nerve II: other Cranial Nerves III, IV, : other Cranial Nerve V: other Cranial Nerve VII: other Cranial Nerve VIII: other Cranial Nerve IX: other Cranial Nerve XI: other Cranial Nerve XII: other Motor System: other Sensory: other Coordination: other Stance: other Gait: other Objective Diffuse anasarca, non focal exam, arousable and PARKER x 4 AG when sedation is stopped. Otherwise currently on Fentanyl and Versed. 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 (33) acute small R pontomedullary and left cerebellar peduncle strokes. 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 Na 135-145 - may add water to enteral feeding to resolve this Charlee Whittington N.P. Feb 17, 2019 21:19
--- NOTE | 2019-02-17 21:24 | General Progress Note ---
Assessment/Plan Status: stable Assessment/Plan: Assessment - Resp failure - Dysphagia / OGT depended - abd distention - Anemia, with OB (-) stools Recommendations - continue NGT feeds - elevate HOB - laxatives PRN Subjective Allergies: Coded Allergies: No Known Allergies (Unverified , 02/05/13) Subjective above noted d/w wait staff tolerating TF (+) BM x 2 Objective Last 24 Hour Vital Signs Date Time Temp Pulse Resp B/P (MAP) Pulse Ox O2 Delivery O2 Flow Rate FiO2 02/17/19 21:09 77 31 40 02/17/19 21:00 76 30 151/67 (95) 100 02/17/19 21:00 30 Mechanical Ventilator 40 02/17/19 20:43 70 138/58 02/17/19 20:30 70 30 138/58 (84) 97 02/17/19 20:08 30 Mechanical Ventilator 40 02/17/19 20:00 40 02/17/19 20:00 Mechanical Ventilator Mechanical Ventilator Mechanical Ventilator 02/17/19 20:00 98.4 72 30 135/58 (83) 98 02/17/19 20:00 30 Mechanical Ventilator 40 02/17/19 19:30 72 30 134/58 (83) 98 02/17/19 19:24 71 30 99 Mechanical Ventilator 40 02/17/19 19:14 71 30 99 Mechanical Ventilator 40 02/17/19 19:14 71 02/17/19 19:13 71 30 40 02/17/19 19:00 71 30 134/57 (82) 98 02/17/19 19:00 30 Mechanical Ventilator 40 02/17/19 19:00 30 Mechanical Ventilator 40 02/17/19 18:30 85 30 136/60 (85) 99 02/17/19 18:30 82 28 162/73 (102) 100 02/17/19 18:00 83 30 162/73 (102) 98 02/17/19 18:00 30 Mechanical Ventilator 40 02/17/19 18:00 30 40 02/17/19 18:00 87 19 225/76 (125) 99 02/17/19 17:54 184/70 02/17/19 17:53 184/70 02/17/19 17:30 70 30 177/98 (124) 98 02/17/19 17:00 77 29 175/100 (125) 98 02/17/19 17:00 29 Mechanical Ventilator 40 02/17/19 17:00 30 40 02/17/19 16:49 69 30 40 02/17/19 16:30 70 18 151/67 (95) 99 02/17/19 16:00 72 02/17/19 16:00 98.5 72 30 157/73 (101) 98 02/17/19 16:00 30 Mechanical Ventilator 40 02/17/19 16:00 30 Mechanical Ventilator 40 02/17/19 16:00 40 02/17/19 16:00 Mechanical Ventilator Mechanical Ventilator Mechanical Ventilator 02/17/19 15:36 30 Mechanical Ventilator 40 02/17/19 15:30 84 18 200/171 (181) 99 02/17/19 15:16 85 30 100 Mechanical Ventilator 40 02/17/19 15:06 85 30 100 Mechanical Ventilator 40 02/17/19 15:04 85 30 40 02/17/19 15:00 83 30 197/159 (172) 100 02/17/19 15:00 26 Mechanical Ventilator 40 02/17/19 15:00 26 Mechanical Ventilator 40 02/17/19 14:45 81 27 205/85 (125) 100 02/17/19 14:30 90 30 230/139 (169) 99 02/17/19 14:20 30 Mechanical Ventilator 40 02/17/19 14:15 69 30 203/76 (118) 98 02/17/19 14:00 69 30 186/70 (108) 98 02/17/19 14:00 30 40 02/17/19 14:00 30 40 02/17/19 13:30 70 30 186/70 (108) 97 02/17/19 13:25 186/73 02/17/19 13:00 30 Mechanical Ventilator 40 02/17/19 13:00 30 Mechanical Ventilator 40 02/17/19 13:00 72 30 161/70 (100) 96 02/17/19 12:54 77 30 40 02/17/19 12:30 71 30 159/66 (97) 97 02/17/19 12:03 210/79 02/17/19 12:00 Mechanical Ventilator Mechanical Ventilator Mechanical Ventilator 02/17/19 12:00 98.4 72 30 182/83 (116) 98 02/17/19 12:00 30 Mechanical Ventilator 40 02/17/19 12:00 30 Mechanical Ventilator 40 02/17/19 12:00 73 6/29/19 12:00 40 02/17/19 11:40 83 30 100 Mechanical Ventilator 40 02/17/19 11:30 78 27 234/105 (148) 99 02/17/19 11:30 80 30 99 Mechanical Ventilator 40 02/17/19 11:26 /85 02/17/19 11:26 /02/17/19 11:00 24 Mechanical Ventilator 40 02/17/19 11:00 24 Mechanical Ventilator 40 02/17/19 11:00 71 30 205/86 (125) 99 02/17/19 10:48 78 31 40 02/17/19 10:30 81 24 162/109 (126) 100 02/17/19 10:00 78 27 173/80 (111) 99 02/17/19 10:00 27 Mechanical Ventilator 40 02/17/19 10:00 27 Mechanical Ventilator 40 02/17/19 09:30 66 29 159/65 (96) 97 02/17/19 09:00 30 Mechanical Ventilator 40 02/17/19 09:00 30 Mechanical Ventilator 40 02/17/19 09:00 66 30 155/62 (93) 97 02/17/19 08:56 71 30 40 02/17/19 08:30 70 30 149/59 (89) 98 02/17/19 08:16 69 154/69 02/17/19 08:15 69 154/61 02/17/19 08:11 30 Mechanical Ventilator 40 02/17/19 08:00 Mechanical Ventilator Mechanical Ventilator Mechanical Ventilator 02/17/19 08:00 40 02/17/19 08:00 30 Mechanical Ventilator 40 02/17/19 08:00 30 Mechanical Ventilator 40 02/17/19 08:00 98.5 69 30 154/68 (96) 97 02/17/19 07:30 69 30 157/61 (93) 97 02/17/19 07:12 72 30 100 Mechanical Ventilator 40 02/17/19 07:02 67 30 98 Mechanical Ventilator 40 02/17/19 07:00 72 30 162/71 (101) 98 02/17/19 07:00 30 Mechanical Ventilator 40 02/17/19 06:52 67 30 40 02/17/19 06:30 69 30 152/65 (94) 97 02/17/19 06:00 30 Mechanical Ventilator 40 02/17/19 06:00 70 30 144/59 (87) 97 02/17/19 05:33 162/74 02/17/19 05:33 162/74 02/17/19 05:30 72 30 162/70 (100) 100 02/17/19 05:26 74 30 40 02/17/19 05:00 79 25 188/87 (120) 99 02/17/19 05:00 30 Mechanical Ventilator 40 02/17/19 04:59 192/77 02/17/19 04:45 30 Mechanical Ventilator 40 02/17/19 04:30 85 30 192/84 (120) 99 02/17/19 04:30 30 Mechanical Ventilator 40 02/17/19 04:00 98.0 78 30 184/84 (117) 97 02/17/19 04:00 Mechanical Ventilator Mechanical Ventilator Mechanical Ventilator 02/17/19 04:00 30 Mechanical Ventilator 40 02/17/19 04:00 40 02/17/19 03:37 71 30 98 Mechanical Ventilator 40 02/17/19 03:31 71 02/17/19 03:30 72 30 172/72 (105) 99 02/17/19 03:27 70 30 97 Mechanical Ventilator 40 02/17/19 03:26 70 30 40 02/17/19 03:05 166/67 02/17/19 03:00 69 30 166/66 (99) 97 02/17/19 03:00 30 Mechanical Ventilator 40 02/17/19 02:30 70 30 167/67 (100) 97 02/17/19 02:15 30 Mechanical Ventilator 40 02/17/19 02:00 70 30 167/69 (101) 96 02/17/19 02:00 30 Mechanical Ventilator 40 02/17/19 01:45 30 Mechanical Ventilator 40 02/17/19 01:36 30 Mechanical Ventilator 40 02/17/19 01:30 72 30 171/73 (105) 97 02/17/19 01:10 69 30 40 02/17/19 01:00 30 Mechanical Ventilator 40 02/17/19 01:00 69 30 161/86 (111) 96 02/17/19 00:30 68 30 163/70 (101) 95 02/17/19 00:00 97.4 68 30 159/66 (97) 96 02/17/19 00:00 30 Mechanical Ventilator 40 02/17/19 00:00 40 02/17/19 00:00 Mechanical Ventilator Mechanical Ventilator Mechanical Ventilator 02/16/19 23:49 68 02/16/19 23:38 75 30 100 Mechanical Ventilator 40 02/16/19 23:36 168/68 02/16/19 23:36 168/68 02/16/19 23:30 68 30 168/68 (101) 98 02/16/19 23:28 67 30 97 Mechanical Ventilator 40 02/16/19 23:27 67 30 40 02/16/19 23:00 67 30 164/66 (98) 96 02/16/19 23:00 30 Mechanical Ventilator 40 02/16/19 22:55 167/47 02/16/19 22:30 68 30 167/67 (100) 96 02/16/19 22:27 30 Mechanical Ventilator 40 02/16/19 22:00 68 30 161/65 (97) 97 02/16/19 22:00 30 Mechanical Ventilator 40 02/16/19 21:30 70 30 160/64 (96) 98 Intake and Output 02/16/19 02/17/19 19:00 07:00 Intake Total 1974.000 ml 2925.5 ml Output Total 1735 ml 2520 ml Balance 239.000 ml 405.5 ml Free Water 60 ml IV Total 1377.000 ml 2241.5 ml Tube Feeding 537 ml 344 ml Other 340 ml Output Urine Total 1735 ml 2520 ml # Bowel Movements 4 4 Laboratory Tests 02/17/19 05:00: White Blood Count 6.0, Red Blood Count 3.11L, Hemoglobin 8.7L, Hematocrit 27.1L , Mean Corpuscular Volume 87, Mean Corpuscular Hemoglobin 27.9, Mean Corpuscular Hemoglobin Concent 32.0, Red Cell Distribution Width 17.6H, Platelet Count 245, Mean Platelet Volume 5.9L, Neutrophils (%) (Auto) 81.3H, Lymphocytes (%) (Auto) 9.6L, Monocytes (%) (Auto) 8.4, Eosinophils (%) (Auto) 0.4, Basophils (%) (Auto) 0.4, Sodium Level 142, Potassium Level 4.3, Chloride Level 108H, Carbon Dioxide Level 25, Anion Gap 9, Blood Urea Nitrogen 67H, Creatinine 2.5H, Estimat Glomerular Filtration Rate 26.6, Glucose Level 308H, Uric Acid 3.8, Calcium Level 7.9L, Phosphorus Level 3.7, Magnesium Level 2.4, Total Bilirubin 0.2, Aspartate Amino Transf (AST/SGOT) 36, Alanine Aminotransferase (ALT/SGPT) 46, Alkaline Phosphatase 139H, C-Reactive Protein, Quantitative 1.7H, Pro-B-Type Natriuretic Peptide 5368H, Total Protein 5.2L, Albumin 1.9L, Globulin 3.3, Albumin/Globulin Ratio 0.6L Height (Feet): 6 Height (Inches): 0.00 Weight (Pounds): 269 Objective unresponsive on vent (+) ETT and OGT coarse BS RR abd distended , soft no edema obtunded Genaro Mobley MD Feb 17, 2019 21:24
--- NOTE | 2019-02-17 22:30 | NUR ---
NURSE NOTES: SEEN THE PATIENT BY JONH/PATENT LEATHER SORTER, MADE NEW ORDER AND CARRIED OUT.
--- NOTE | 2019-02-17 22:50 | NUR ---
NURSE NOTES: APPLIED COOL COMPRESS MOIST COVER TO BOTH EYES ORDERED, WILL CONTINUE TO MONITOR.
[2019-02-18] VITALS (48 sets, daily range): BP systolic 92–179; BP diastolic 49–102
[2019-02-18] MEDS: NovoLOG Insulin Flexpen SUBQ SCH ×12 (00:36→20:17)
--- NOTE | 2019-02-18 01:00 | NUR ---
NURSE NOTES: PATIENT SLEEPING STATUS, KEPT RASS SCORE -2 PER PROTOCOLS, WILL CONTINUE PLAN OF CARE.
[2019-02-18] MEDS: Midazolam for drip 50 MG in NS 90 ML IV SCH ×5 (01:12→23:22)
[2019-02-18] MEDS: fentaNYL Citrate 2,500 MCG in NS 200 ML IV SCH ×2 (02:24→15:51)
[2019-02-18] MEDS: Albuterol/Ipratropium 3ml neb HHN SCH ×6 (03:16→23:11)
--- NOTE | 2019-02-18 03:30 | NUR ---
NURSE NOTES: MORNING CARE WAS DONE, SMALL DARK GREENISH SOFT BOWEL MOVEMENT STATUS.
--- NOTE | 2019-02-18 04:41 | NUR ---
NURSE NOTES: SBP over 165mmhg noted, given Apresoline 10mg by ivp as prn ordered, made HOB over 45 degrees, will continue to monitor.
[2019-02-18] MEDS: Piperacillin/Tazobactam 3.375 GM in NS 110 ML IVPB SCH ×2 (05:35→18:32)
[2019-02-18] MEDS: HydrALAZINE 50mg tab NG SCH ×4 (05:36→23:21)
--- NOTE | 2019-02-18 06:10 | NUR ---
NURSE NOTES: ON FENTANYL DRIP 200MCG/HR AND VERSED DRIP 10MG/HR, KEPT RASS SCORE -2, NO PAIN OR SOB NOTED AT THIS SHIFT.
[2019-02-18] MEDS: Lacri-Lube Opth Oint 3.5gm BOTH EYES SCH ×4 (06:30→20:14)
[2019-02-18 07:00] LABS: BASOPHILS % (AUTO) 0.3 % (0.0-2.0); EOSINOPHILS % (AUTO) 0.2 % (0.0-3.0); HEMATOCRIT 31.8 % (42.0-52.0); HEMOGLOBIN 10.3 G/DL (14.2-18.0); LYMPHOCYTES % (AUTO) 9.2 % (20.0-45.0); MEAN CORPUSCULAR VOLUME 87 FL (80-99); MONOCYTES % (AUTO) 6.7 % (1.0-10.0); NEUTROPHILS % (AUTO) 83.5 % (45.0-75.0); PLATELET COUNT 310 K/UL (150-450); RED BLOOD COUNT 3.68 M/UL (4.70-6.10); RED CELL DISTRIBUTION WIDTH 17.4 % (11.6-14.8); WHITE BLOOD COUNT 8.1 K/UL (4.8-10.8)
--- NOTE | 2019-02-18 07:00 | NUR ---
RESPIRATORY NOTE:Patient received mechanically ventilated on PB 840 with current ordered vent settings. Patient is orally intubated with 7.5 ETT tube and 25cm at the lip line that is secured with an anchor fast. Vent alarms are functional and audible. There is an ambu bag available at the bedside and the vent is connected to a red outlet. Will continue to monitor.
--- NOTE | 2019-02-18 07:08 | NUR ---
HAND-OFF: Report given to Michael PALACIOS RN.
--- NOTE | 2019-02-18 07:09 | NUR ---
NURSE NOTES: Received patient from TESSA Alva. Patient sedated to Rass score of -2. Patient on Versed 10mg/hr (20mL/hr) and fentanyl 200mcg/hr (15mL/hr). Patient easily arousable to voice and touch. Patient is intubated with 7.5cm endotracheal tube with 25cm at the lip line. Ventilator setting AC 30, tidal volume 550, FiO2 40%, and PEEP 5. Patient tolerating setting with oxygen saturation of 99-100%. Patient scheduled for weaning trial this morning. Will follow up with respiratory therapist. Sedation will be held for weaning trial. Patient has an OGT that is patent, asymptomatic, checked with x-ray and auscultation, and running tube feeding nepro at 43mL/hr. Patient blood sugar is high this morning. Patient has bedside blood sugar check at 9am. Will follow up and continue to monitor. Patient has a smith for urine retention that is putting out 100mL/hr of straw yellow urine. Patient is on bilateral soft wrist restraints. Patient witnessed attempting to removed ETT and OGT. Patient combative when not sedated. Patient on 200mcg/hr fentanyl and 10mcg/hr Versed. Patient has a left femoral Ritesh catheter with a pigtail that is patent and asymptomatic and running Versed and fentanyl. Patient has left wrist 20G PIV that is D5W at 50mL/hr. Patient has generalized edema non-pitting of the upper extremities and abdomen and pitting +2 edema of the legs and feet. SCDs removed at this time due to pitting edema of the feet. Legs elevated on pillows with heels floated at this time. Patient upper lobes have auditory rhonchi on inspiration and expiration and diminished lung sounds of the lower lobes. Patient has high troponin of 0.836 this morning. This value is lower than previous troponin value. Will notify Dr Francois. Patient bed in low position with bed alarm on and call light in reach.
[2019-02-18 07:18] LABS: ALANINE AMINOTRANSFERASE 58 U/L (12-78); ALBUMIN 2.2 G/DL (3.4-5.0); ALBUMIN/GLOBULIN RATIO 0.6 (1.0-2.7); ALKALINE PHOSPHATASE 161 U/L (46-116); ANION GAP 10 mmol/L (5-15); ASPARTATE AMINO TRANSFERASE 47 U/L (15-37); BILIRUBIN,TOTAL 0.4 MG/DL (0.2-1.0); BLOOD UREA NITROGEN 62 mg/dL (7-18); CALCIUM 8.5 MG/DL (8.5-10.1); CARBON DIOXIDE 25 MMOL/L (21-32); CHLORIDE 107 MMOL/L (98-107); CREATININE 2.4 MG/DL (0.55-1.30); POTASSIUM 4.3 MMOL/L (3.5-5.1); SODIUM 142 MMOL/L (136-145)
[2019-02-18 07:22] LABS: PHOSPHORUS 4.2 MG/DL (2.5-4.9)
[2019-02-18] MEDS ORDERED: Vancomycin 1750mg/D5W 550ml IVPB ONE ×2 (08:30)
[2019-02-18] MEDS: RALTEGRAVIR 400 MG ORAL SCH ×2 (08:53→18:33)
[2019-02-18] MEDS: TENOFOVIR DISOPROXIL FUMARATE 300 MG ORAL SCH (08:53)
[2019-02-18] MEDS: Docusate 100mg/10ml Liq GT SCH ×3 (08:54→18:32)
[2019-02-18] MEDS: Aspirin EC 81mg tab ORAL SCH (08:54)
[2019-02-18] MEDS: guaiFENesin ER 600mg tab ORAL SCH ×2 (08:54→18:33)
[2019-02-18] MEDS: Sennosides 8.6mg tab ORAL SCH (08:54)
[2019-02-18] MEDS: Solu-MEDROL 40mg Inj IVP SCH ×2 (08:55→20:14)
--- NOTE | 2019-02-18 09:00 | NUR ---
NURSE NOTES: Blood pressure 134/56. Patient RASS score -2 with fentanyl drip 200mcg/hr and Versed 10mcg/hr. Will continue to monitor and titrate drips per protocol. Patient bed in low position with bed alarm on and call light in reach. Patient has saline soaked eyes over his eyes to keep them hydrated. Patient has bilateral soft wrist restraint with intact peripheral pulses. Patient has generalized edema. Patient resting with no sign of acute distress at this time.
--- NOTE | 2019-02-18 09:50 | NUR ---
NURSE NOTES: Called [facility] [employer] to follow up on P200 Mattress. Advised that P200 will be delivered today.
--- NOTE | 2019-02-18 11:09 | Pulmonolgy Critical Care Note ---
Critical Care - Asmt/Plan Assessment/Plan: Pulmonary CCM Progress Note Critical Care - Asmt/Plan Problems: (1) Endotracheally intubated (2) Acute hypoxemic respiratory failure (3) Pneumonia (4) NSTEMI (non-ST elevated myocardial infarction) (5) AIDS (6) HIV disease (7) Hypertension (8) MDD (major depressive disorder), recurrent episode, moderate (9) Anemia (10) CKD (chronic kidney disease) (11) History of stroke (12) Diabetes (13) Anxiety (14) Malignant hypertension Assessment/Plan: VDRF - wean as tolerated ARDS Acute respiratory failure Bilateral pulmonary infiltrates, ? multilobar CAP vs atypical infection vs other ? PJP - await PJP DFA, sputum culture AIDS (CD4 191) NSTEMI H/O prior CVA HTN HL DM with uncontrolled BS ISH on CKD Anemia PLAN: Change vent settings AC 30 TV 600 PEEP 5, titrate FiO2 to keep SaO2 >92% SBT as able RTC and PRN HHN's Continue Abx per ID (Zosyn, Vanco, TMP-SMX) + flucon per ID F/U Cx's and BAL studies Continue SM 20 IV BID Monitor volumes and renal function, F/U renal recs, D5W per renal, lasix 20 IV x 1 now F/U cards recs: will need further ischemia eval/cath once stabilized DVT Px: LMWH F/U ENDO recs ICU sedation: Fent/Versed FC D/W RN Disposition: keep in ICU Time Spent (Minutes): 40 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, 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, 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, ID, GI Discussed with: nurses, consultants Critical Care - Objective Vital Signs Noted Status: sedated Condition: critical HEENT: atraumatic, normocephalic, other - ETT OGT Lungs: rales Heart: HR/BP stable Abdomen: soft, non-tender, active bowel sounds Extremities: edema - 2+ Blood Sugars: BS not controlled Critical Care - Subjective ROS Limited/Unobtainable: Yes ICU Day: 13 Intubation Day: 11 Interval Events: Failed SBT Condition: critical IV Access: central, peripheral EKG Rhythm: Sinus Rhythm FI02: 100 Vent Support Breath Rate: 24 Vent Support Mode: AC Vent Tidal Volume: 500 Sputum Amount: Scant PEEP: 5.0 PIP: 37 Fluids: D5W Drips: Versed, Fent Tube Feeding Amount: 50 Subjective: Sedated on fent/versed ET-Tube: 7.5 ET Position: 25 Labs: Laboratory Tests Test 02/16/19 03:30 02/16/19 05:05 02/16/19 08:08 Stool Occult Blood Pending White Blood Count 7.8 K/UL (4.8-10.8) # Red Blood Count 3.26 M/UL (4.70-6.10) L Hemoglobin 8.9 G/DL (14.2-18.0) L Hematocrit 27.8 % (42.0-52.0) L Mean Corpuscular Volume 85 FL (80-99) Mean Corpuscular Hemoglobin 27.5 PG (27.0-31.0) Mean Corpuscular Hemoglobin Concent 32.1 G/DL (32.0-36.0) Red Cell Distribution Width 18.1 % (11.6-14.8) H Platelet Count 253 K/UL (150-450) Mean Platelet Volume 6.4 FL (6.5-10.1) L Neutrophils (%) (Auto) % (45.0-75.0) Lymphocytes (%) (Auto) % (20.0-45.0) Monocytes (%) (Auto) % (1.0-10.0) Eosinophils (%) (Auto) % (0.0-3.0) Basophils (%) (Auto) % (0.0-2.0) Sodium Level 148 MMOL/L (136-145) H Potassium Level 5.8 MMOL/L (3.5-5.1) H Chloride Level 114 MMOL/L (98-107) H Carbon Dioxide Level 28 MMOL/L (21-32) Anion Gap 6 mmol/L (5-15) Blood Urea Nitrogen 71 mg/dL (7-18) H Creatinine 2.6 MG/DL (0.55-1.30) H Estimat Glomerular Filtration Rate 25.4 mL/min (>60) Glucose Level 269 MG/DL (74-106) H Uric Acid 4.8 MG/DL (2.6-7.2) Calcium Level 7.8 MG/DL (8.5-10.1) L Phosphorus Level 4.6 MG/DL (2.5-4.9) Magnesium Level 2.9 MG/DL (1.8-2.4) H Total Bilirubin 0.2 MG/DL (0.2-1.0) Aspartate Amino Transf (AST/SGOT) 32 U/L (15-37) Alanine Aminotransferase (ALT/SGPT) 51 U/L (12-78) Alkaline Phosphatase 157 U/L (46-116) H C-Reactive Protein, Quantitative 2.2 mg/dL (0.00-0.90) H Pro-B-Type Natriuretic Peptide 5575 pg/mL (0-125) H Total Protein 5.7 G/DL (6.4-8.2) L Albumin 2.0 G/DL (3.4-5.0) L Globulin 3.7 g/dL Albumin/Globulin Ratio 0.5 (1.0-2.7) L Random Vancomycin Level 11.4 ug/mL Arterial Blood pH 7.244 (7.350-7.450) Arterial Blood Partial Pressure CO2 59.1 mmHg (35.0-45.0) *H Arterial Blood Partial Pressure O2 63.4 mmHg (75.0-100.0) L Arterial Blood HCO3 25.0 mmol/L (22.0-26.0) Arterial Blood Oxygen Saturation 87.0 % (95-100) *L Arterial Blood Base Excess -3.0 (-2-2) L Benny Test Positive Critical Care - Objective Last 24 Hour Vital Signs Date Time Temp Pulse Resp B/P (MAP) Pulse Ox O2 Delivery O2 Flow Rate FiO2 02/18/19 10:00 74 30 157/66 (96) 100 02/18/19 09:30 73 30 147/62 (90) 100 02/18/19 09:00 81 30 92/65 (74) 100 02/18/19 08:55 73 134/56 02/18/19 08:54 74 134/56 02/18/19 08:49 88 30 40 02/18/19 08:30 73 30 134/56 (82) 98 02/18/19 08:00 75 02/18/19 08:00 97.4 75 30 139/57 (84) 100 02/18/19 08:00 Mechanical Ventilator Mechanical Ventilator 02/18/19 08:00 40 02/18/19 07:30 87 30 162/79 (106) 100 02/18/19 07:00 69 30 124/51 (75) 98 02/18/19 07:00 30 Mechanical Ventilator 40 02/18/19 06:40 71 30 100 Mechanical Ventilator 40 02/18/19 06:37 79 30 40 02/18/19 06:33 71 30 99 Mechanical Ventilator 40 02/18/19 06:30 71 27 124/51 (75) 97 02/18/19 06:28 30 Mechanical Ventilator 40 02/18/19 06:00 74 22 136/56 (82) 100 02/18/19 06:00 22 Mechanical Ventilator 40 02/18/19 05:36 178/78 02/18/19 05:36 178/78 02/18/19 05:36 178/78 02/18/19 05:30 88 23 166/92 (116) 100 02/18/19 05:01 78 30 40 02/18/19 05:00 23 Mechanical Ventilator 40 02/18/19 05:00 81 30 162/76 (104) 100 02/18/19 04:41 173/74 02/18/19 04:30 80 30 173/74 (107) 100 02/18/19 04:00 30 Mechanical Ventilator 40 02/18/19 04:00 Mechanical Ventilator Mechanical Ventilator Mechanical Ventilator 02/18/19 04:00 97.7 88 30 179/75 (109) 99 02/18/19 04:00 40 02/18/19 03:30 84 30 135/94 (108) 100 02/18/19 03:26 84 30 100 Mechanical Ventilator 40 02/18/19 03:16 64 30 98 Mechanical Ventilator 40 02/18/19 03:16 64 30 40 02/18/19 03:00 65 28 158/61 (93) 99 02/18/19 02:57 65 02/18/19 02:30 65 30 157/65 (95) 98 02/18/19 02:24 30 Mechanical Ventilator 40 02/18/19 02:00 64 30 150/62 (91) 98 02/18/19 01:30 64 30 147/52 (83) 98 02/18/19 01:12 30 Mechanical Ventilator 40 02/18/19 01:00 65 30 151/61 (91) 99 02/18/19 01:00 65 30 40 02/18/19 01:00 30 Mechanical Ventilator 40 02/18/19 00:30 67 30 151/61 (91) 97 02/18/19 00:00 Mechanical Ventilator Mechanical Ventilator Mechanical Ventilator 02/18/19 00:00 30 Mechanical Ventilator 40 02/18/19 00:00 98.0 67 30 153/60 (91) 98 02/18/19 00:00 40 02/17/19 23:33 147/57 02/17/19 23:33 147/57 02/17/19 23:30 65 30 147/57 (87) 99 02/17/19 23:25 65 30 99 Mechanical Ventilator 40 02/17/19 23:15 65 30 98 Mechanical Ventilator 40 02/17/19 23:15 65 30 40 02/17/19 23:00 67 30 148/56 (86) 99 02/17/19 23:00 30 Mechanical Ventilator 40 02/17/19 22:59 67 02/17/19 22:30 68 30 157/58 (91) 99 02/17/19 22:00 30 Mechanical Ventilator 40 02/17/19 22:00 80 18 177/76 (109) 100 02/17/19 21:39 154/62 02/17/19 21:30 70 30 154/62 (92) 98 02/17/19 21:09 77 31 40 02/17/19 21:00 76 30 151/67 (95) 100 02/17/19 21:00 30 Mechanical Ventilator 40 02/17/19 20:43 70 138/58 02/17/19 20:30 70 30 138/58 (84) 97 02/17/19 20:08 30 Mechanical Ventilator 40 02/17/19 20:00 40 02/17/19 20:00 Mechanical Ventilator Mechanical Ventilator Mechanical Ventilator 02/17/19 20:00 98.4 72 30 135/58 (83) 98 02/17/19 20:00 30 Mechanical Ventilator 40 02/17/19 19:30 72 30 134/58 (83) 98 02/17/19 19:24 71 30 99 Mechanical Ventilator 40 02/17/19 19:14 71 30 99 Mechanical Ventilator 40 02/17/19 19:14 71 02/17/19 19:13 71 30 40 02/17/19 19:00 71 30 134/57 (82) 98 02/17/19 19:00 30 Mechanical Ventilator 40 02/17/19 19:00 30 Mechanical Ventilator 40 02/17/19 18:30 85 30 136/60 (85) 99 02/17/19 18:30 82 28 162/73 (102) 100 02/17/19 18:00 83 30 162/73 (102) 98 02/17/19 18:00 30 Mechanical Ventilator 40 02/17/19 18:00 30 40 02/17/19 18:00 87 19 225/76 (125) 99 02/17/19 17:54 184/70 02/17/19 17:53 184/70 02/17/19 17:30 70 30 177/98 (124) 98 02/17/19 17:00 77 29 175/100 (125) 98 02/17/19 17:00 29 Mechanical Ventilator 40 02/17/19 17:00 30 40 02/17/19 16:49 69 30 40 02/17/19 16:30 70 18 151/67 (95) 99 02/17/19 16:00 72 02/17/19 16:00 98.5 72 30 157/73 (101) 98 02/17/19 16:00 30 Mechanical Ventilator 40 02/17/19 16:00 30 Mechanical Ventilator 40 02/17/19 16:00 40 02/17/19 16:00 Mechanical Ventilator Mechanical Ventilator Mechanical Ventilator 02/17/19 15:36 30 Mechanical Ventilator 40 02/17/19 15:30 84 18 200/171 (181) 99 02/17/19 15:16 85 30 100 Mechanical Ventilator 40 02/17/19 15:06 85 30 100 Mechanical Ventilator 40 02/17/19 15:04 85 30 40 02/17/19 15:00 83 30 197/159 (172) 100 02/17/19 15:00 26 Mechanical Ventilator 40 02/17/19 15:00 26 Mechanical Ventilator 40 02/17/19 14:45 81 27 205/85 (125) 100 02/17/19 14:30 90 30 230/139 (169) 99 02/17/19 14:20 30 Mechanical Ventilator 40 02/17/19 14:15 69 30 203/76 (118) 98 02/17/19 14:00 69 30 186/70 (108) 98 02/17/19 14:00 30 40 02/17/19 14:00 30 40 02/17/19 13:30 70 30 186/70 (108) 97 02/17/19 13:25 186/73 02/17/19 13:00 30 Mechanical Ventilator 40 02/17/19 13:00 30 Mechanical Ventilator 40 02/17/19 13:00 72 30 161/70 (100) 96 02/17/19 12:54 77 30 40 02/17/19 12:30 71 30 159/66 (97) 97 02/17/19 12:03 210/79 02/17/19 12:00 Mechanical Ventilator Mechanical Ventilator Mechanical Ventilator 02/17/19 12:00 98.4 72 30 182/83 (116) 98 02/17/19 12:00 30 Mechanical Ventilator 40 02/17/19 12:00 30 Mechanical Ventilator 40 02/17/19 12:00 73 02/17/19 12:00 40 02/17/19 11:40 83 30 100 Mechanical Ventilator 40 02/17/19 11:30 78 27 234/105 (148) 99 02/17/19 11:30 80 30 99 Mechanical Ventilator 40 02/17/19 11:26 206/85 02/17/19 11:26 206/85 Accucheck: 169 Critical Care - Subjective ROS Limited/Unobtainable: No Condition: stable FI02: 40 Vent Support Breath Rate: 30 Vent Support Mode: AC Vent Tidal Volume: 550 Sputum Amount: Small PEEP: 5.0 PIP: 30 Tube Feeding Amount: 43 I&O: Intake and Output 02/17/19 02/18/19 19:00 07:00 Intake Total 2758.5 ml 2438.5 ml Output Total 2550 ml 1940 ml Balance 208.5 ml 498.5 ml Free Water 230 ml IV Total 2012.5 ml 1778.5 ml Tube Feeding 516 ml 430 ml Other 230 ml Output Urine Total 2550 ml 1940 ml # Bowel Movements 3 2 ET-Tube: 7.5 ET Position: 25 Salty Yan MD Feb 18, 2019 11:09
--- NOTE | 2019-02-18 12:00 | NUR ---
NURSE NOTES: Patient sedated to Rass score of -1 at this time on fentanyl drip at 200mcg/hr (20mL/hr) and Versed at 10mcg/hr (20mL/hr). Patient has moments where he is drowsy and restless with RASS of -1 and moments where he is calm with RASS score of -2. No increase in sedation implemented at this time due to patient not remaining consistently at a RASS score of -1. Patient is intubated with 7.5cm endotracheal tube with 25cm at the lip line. Ventilator setting AC 30, tidal volume 550, FiO2 40%, and PEEP 5. Patient tolerating setting with oxygen saturation of 99-100%. Patient OGT that is patent, re-verified with auscultation with <10mL residual and running tube feeding of Nepro at 43mL/hr. Patient has a smith for urine retention that is putting out 100-150mL/hr of straw yellow urine. Patient is on bilateral soft wrist restraints. Patient witnessed attempting to removed ETT and OGT. Patient has a left femoral Ritesh catheter with a pigtail that is patent and asymptomatic and running Versed drip and fentanyl drip. Patient has left wrist 20G PIV that is D5W at 50mL/hr. Patient has generalized edema non-pitting of the upper extremities and abdomen and pitting +2 edema of the legs and feet. Patient has swelling of the sclera on the lower section of his eyeball. SCDs not in place at this time due to swelling of the legs. Legs elevated on pillows with heels floated at this time. Patient upper lobes have auditory rhonchi on inspiration and expiration and diminished lung sounds of the lower lobes. Patient remains on bilateral soft wrist restraints. When patient becomes more alert, he starts reaching for the endotracheal tube. Restraints in place for safety and impulsivity. Bilateral peripheral pulses intact. Skin intact on bilateral wrists. Patient has right elbow non-blanchable redness as previously noted. Patient bed in low position with bed alarm on and call light in reach. Oral care and repositioning performed at this time. All four extremities elevated.
--- NOTE | 2019-02-18 12:05 | Diagnostic Imaging Report ---
EXAM: XR Chest, 1 View CLINICAL HISTORY: F/U TECHNIQUE: Frontal view of the chest. COMPARISON: Chest radiograph on 02/16/2019 FINDINGS: Hardware: Endotracheal tube terminates in the region of the mid thoracic trachea. Enteric tube courses past the diaphragm and out of the field of view. Lungs/pleura: Slightly decreased but persistent hazy and interstitial opacities. Persistent small left pleural effusion. Heart/mediastinum: Stable mild enlargement of the cardiomediastinal silhouette. Soft tissues: Unremarkable. Bones: No acute fracture. Upper abdomen: Normal. IMPRESSION: Slightly decreased but persistent changes suggesting pulmonary edema. Component of infectious/inflammatory process is not excluded. Persistent small left pleural effusion.
--- NOTE | 2019-02-18 12:20 | NUR ---
NURSE NOTES: TESSA Santacruz charge nurse witnessed my waste of <5mL of Versed drip.
[2019-02-18] MEDS: SULFAMETHOXAZOLE IV SCH ×2 (12:35→23:22)
[2019-02-18] MEDS: D5W IV SCH ×2 (12:35→23:22)
[2019-02-18] MEDS: TRIMETHOPRIM IV SCH ×2 (12:35→23:22)
--- NOTE | 2019-02-18 12:51 | NUR ---
NURSE NOTES: Patient bedside blood glucose is 117 at this time. Patient has an order for 16 units novoLOG to be given at 1300 as well as sliding scale insulin coverage. Sliding scale 3 units given per order. 16 unit novoLOG mealtime coverage held at this time. Left message for Dr Nichols regarding the blood glucose and what was given for coverage. Awaiting call back.
--- NOTE | 2019-02-18 12:57 | Surgery Progress Note ---
Surgery Progress Note Subjective Procedure Performed left femoral temporary Hemodialysis catheter insertion Additional Comments still in ICU on vent labs noted anasarca Objective Last 24 Hour Vital Signs Date Time Temp Pulse Resp B/P (MAP) Pulse Ox O2 Delivery O2 Flow Rate FiO2 02/18/19 12:16 30 Mechanical Ventilator 40 02/18/19 12:00 30 Mechanical Ventilator 40 02/18/19 11:28 159/69 02/18/19 11:28 159/69 02/18/19 11:12 80 24 40 02/18/19 11:10 80 24 100 Mechanical Ventilator 40 02/18/19 11:00 30 Mechanical Ventilator 40 02/18/19 11:00 30 Mechanical Ventilator 40 02/18/19 11:00 80 24 99 Mechanical Ventilator 40 02/18/19 10:00 74 30 157/66 (96) 100 02/18/19 10:00 30 Mechanical Ventilator 40 02/18/19 10:00 30 Mechanical Ventilator 40 02/18/19 09:30 73 30 147/62 (90) 100 02/18/19 09:00 81 30 92/65 (74) 100 02/18/19 09:00 30 Mechanical Ventilator 40 02/18/19 09:00 30 40 02/18/19 08:55 73 134/56 02/18/19 08:54 74 134/56 02/18/19 08:49 88 30 40 02/18/19 08:30 73 30 134/56 (82) 98 02/18/19 08:00 75 02/18/19 08:00 97.4 75 30 139/57 (84) 100 02/18/19 08:00 30 Mechanical Ventilator 40 02/18/19 08:00 30 Mechanical Ventilator 40 02/18/19 08:00 Mechanical Ventilator Mechanical Ventilator 02/18/19 08:00 40 02/18/19 07:30 87 30 162/79 (106) 100 02/18/19 07:00 69 30 124/51 (75) 98 02/18/19 07:00 30 Mechanical Ventilator 40 02/18/19 06:40 71 30 100 Mechanical Ventilator 40 02/18/19 06:37 79 30 40 02/18/19 06:33 71 30 99 Mechanical Ventilator 40 02/18/19 06:30 71 27 124/51 (75) 97 02/18/19 06:28 30 Mechanical Ventilator 40 02/18/19 06:00 74 22 136/56 (82) 100 02/18/19 06:00 22 Mechanical Ventilator 40 02/18/19 05:36 178/78 02/18/19 05:36 178/78 02/18/19 05:36 178/78 02/18/19 05:30 88 23 166/92 (116) 100 02/18/19 05:01 78 30 40 02/18/19 05:00 23 Mechanical Ventilator 40 02/18/19 05:00 81 30 162/76 (104) 100 02/18/19 04:41 173/74 02/18/19 04:30 80 30 173/74 (107) 100 02/18/19 04:00 30 Mechanical Ventilator 40 02/18/19 04:00 Mechanical Ventilator Mechanical Ventilator Mechanical Ventilator 02/18/19 04:00 97.7 88 30 179/75 (109) 99 02/18/19 04:00 40 02/18/19 03:30 84 30 135/94 (108) 100 02/18/19 03:26 84 30 100 Mechanical Ventilator 40 02/18/19 03:16 64 30 98 Mechanical Ventilator 40 02/18/19 03:16 64 30 40 02/18/19 03:00 65 28 158/61 (93) 99 02/18/19 02:57 65 02/18/19 02:30 65 30 157/65 (95) 98 02/18/19 02:24 30 Mechanical Ventilator 40 02/18/19 02:00 64 30 150/62 (91) 98 02/18/19 01:30 64 30 147/52 (83) 98 02/18/19 01:12 30 Mechanical Ventilator 40 02/18/19 01:00 65 30 151/61 (91) 99 02/18/19 01:00 65 30 40 02/18/19 01:00 30 Mechanical Ventilator 40 02/18/19 00:30 67 30 151/61 (91) 97 02/18/19 00:00 Mechanical Ventilator Mechanical Ventilator Mechanical Ventilator 02/18/19 00:00 30 Mechanical Ventilator 40 02/18/19 00:00 98.0 67 30 153/60 (91) 98 02/18/19 00:00 40 02/17/19 23:33 147/57 02/17/19 23:33 147/57 02/17/19 23:30 65 30 147/57 (87) 99 02/17/19 23:25 65 30 99 Mechanical Ventilator 40 02/17/19 23:15 65 30 98 Mechanical Ventilator 40 02/17/19 23:15 65 30 40 02/17/19 23:00 67 30 148/56 (86) 99 02/17/19 23:00 30 Mechanical Ventilator 40 02/17/19 22:59 67 02/17/19 22:30 68 30 157/58 (91) 99 02/17/19 22:00 30 Mechanical Ventilator 40 02/17/19 22:00 80 18 177/76 (109) 100 02/17/19 21:39 154/62 02/17/19 21:30 70 30 154/62 (92) 98 02/17/19 21:09 77 31 40 02/17/19 21:00 76 30 151/67 (95) 100 02/17/19 21:00 30 Mechanical Ventilator 40 02/17/19 20:43 70 138/58 02/17/19 20:30 70 30 138/58 (84) 97 02/17/19 20:08 30 Mechanical Ventilator 40 02/17/19 20:00 40 02/17/19 20:00 Mechanical Ventilator Mechanical Ventilator Mechanical Ventilator 02/17/19 20:00 98.4 72 30 135/58 (83) 98 02/17/19 20:00 30 Mechanical Ventilator 40 02/17/19 19:30 72 30 134/58 (83) 98 02/17/19 19:24 71 30 99 Mechanical Ventilator 40 02/17/19 19:14 71 30 99 Mechanical Ventilator 40 02/17/19 19:14 71 02/17/19 19:13 71 30 40 02/17/19 19:00 71 30 134/57 (82) 98 02/17/19 19:00 30 Mechanical Ventilator 40 02/17/19 19:00 30 Mechanical Ventilator 40 02/17/19 18:30 85 30 136/60 (85) 99 02/17/19 18:30 82 28 162/73 (102) 100 02/17/19 18:00 83 30 162/73 (102) 98 02/17/19 18:00 30 Mechanical Ventilator 40 02/17/19 18:00 30 40 02/17/19 18:00 87 19 225/76 (125) 99 02/17/19 17:54 184/70 02/17/19 17:53 184/70 02/17/19 17:30 70 30 177/98 (124) 98 02/17/19 17:00 77 29 175/100 (125) 98 02/17/19 17:00 29 Mechanical Ventilator 40 02/17/19 17:00 30 40 02/17/19 16:49 69 30 40 02/17/19 16:30 70 18 151/67 (95) 99 02/17/19 16:00 72 02/17/19 16:00 98.5 72 30 157/73 (101) 98 02/17/19 16:00 30 Mechanical Ventilator 40 02/17/19 16:00 30 Mechanical Ventilator 40 02/17/19 16:00 40 02/17/19 16:00 Mechanical Ventilator Mechanical Ventilator Mechanical Ventilator 02/17/19 15:36 30 Mechanical Ventilator 40 02/17/19 15:30 84 18 200/171 (181) 99 02/17/19 15:16 85 30 100 Mechanical Ventilator 40 02/17/19 15:06 85 30 100 Mechanical Ventilator 40 02/17/19 15:04 85 30 40 02/17/19 15:00 83 30 197/159 (172) 100 02/17/19 15:00 26 Mechanical Ventilator 40 02/17/19 15:00 26 Mechanical Ventilator 40 02/17/19 14:45 81 27 205/85 (125) 100 02/17/19 14:30 90 30 230/139 (169) 99 02/17/19 14:20 30 Mechanical Ventilator 40 02/17/19 14:15 69 30 203/76 (118) 98 02/17/19 14:00 69 30 186/70 (108) 98 02/17/19 14:00 30 40 02/17/19 14:00 30 40 02/17/19 13:30 70 30 186/70 (108) 97 02/17/19 13:25 186/73 02/17/19 13:00 30 Mechanical Ventilator 40 02/17/19 13:00 30 Mechanical Ventilator 40 02/17/19 13:00 72 30 161/70 (100) 96 I&O Intake and Output 02/17/19 02/18/19 19:00 07:00 Intake Total 2758.5 ml 2438.5 ml Output Total 2550 ml 1940 ml Balance 208.5 ml 498.5 ml Free Water 230 ml IV Total 2012.5 ml 1778.5 ml Tube Feeding 516 ml 430 ml Other 230 ml Output Urine Total 2550 ml 1940 ml # Bowel Movements 3 2 Dressing: saturated Wound: clean Cardiovascular: RSR Respiratory: decreased breath sounds Abdomen: soft, non-distended Extremities: no cyanosis Laboratory Tests Test 02/18/19 05:30 02/18/19 08:30 White Blood Count 8.1 K/UL (4.8-10.8) Red Blood Count 3.68 M/UL (4.70-6.10) L Hemoglobin 10.3 G/DL (14.2-18.0) L Hematocrit 31.8 % (42.0-52.0) L Mean Corpuscular Volume 87 FL (80-99) Mean Corpuscular Hemoglobin 28.1 PG (27.0-31.0) Mean Corpuscular Hemoglobin Concent 32.4 G/DL (32.0-36.0) Red Cell Distribution Width 17.4 % (11.6-14.8) H Platelet Count 310 K/UL (150-450) Mean Platelet Volume 6.4 FL (6.5-10.1) L Neutrophils (%) (Auto) 83.5 % (45.0-75.0) H Lymphocytes (%) (Auto) 9.2 % (20.0-45.0) L Monocytes (%) (Auto) 6.7 % (1.0-10.0) Eosinophils (%) (Auto) 0.2 % (0.0-3.0) Basophils (%) (Auto) 0.3 % (0.0-2.0) Sodium Level 142 MMOL/L (136-145) Potassium Level 4.3 MMOL/L (3.5-5.1) Chloride Level 107 MMOL/L (98-107) Carbon Dioxide Level 25 MMOL/L (21-32) Anion Gap 10 mmol/L (5-15) Blood Urea Nitrogen 62 mg/dL (7-18) H Creatinine 2.4 MG/DL (0.55-1.30) H Estimat Glomerular Filtration Rate 27.8 mL/min (>60) Glucose Level 216 MG/DL (74-106) H Uric Acid 3.0 MG/DL (2.6-7.2) Calcium Level 8.5 MG/DL (8.5-10.1) Phosphorus Level 4.2 MG/DL (2.5-4.9) Magnesium Level 2.2 MG/DL (1.8-2.4) Total Bilirubin 0.4 MG/DL (0.2-1.0) Aspartate Amino Transf (AST/SGOT) 47 U/L (15-37) H Alanine Aminotransferase (ALT/SGPT) 58 U/L (12-78) Alkaline Phosphatase 161 U/L (46-116) H Ammonia 17 umol/L (11-32) Troponin I 0.836 ng/mL (0.000-0.056) C-Reactive Protein, Quantitative 1.4 mg/dL (0.00-0.90) H Pro-B-Type Natriuretic Peptide 4140 pg/mL (0-125) H Total Protein 6.1 G/DL (6.4-8.2) L Albumin 2.2 G/DL (3.4-5.0) L Globulin 3.9 g/dL Albumin/Globulin Ratio 0.6 (1.0-2.7) L Random Vancomycin Level 9.0 ug/mL Arterial Blood pH 7.494 (7.350-7.450) Arterial Blood Partial Pressure CO2 29.3 mmHg (35.0-45.0) L Arterial Blood Partial Pressure O2 82.7 mmHg (75.0-100.0) Arterial Blood HCO3 22.0 mmol/L (22.0-26.0) Arterial Blood Oxygen Saturation 95.1 % (95-100) Arterial Blood Base Excess -0.7 (-2-2) Benny Test Positive Plan Problems: (1) Hypoxia Assessment & Plan: Extensive bilateral upper lobe infiltrates likely inflammatory/infectious. Correlate clinically. Tuberculosis is not excludable. Bilateral pleural effusions. Endotracheal tube and nasogastric tube in good position Atherosclerotic vascular disease (2) Respiratory distress Assessment & Plan: AM CXR pulm input appreciated (3) Sepsis Assessment & Plan: Sepsis with tachycardia, leukocytosis, abnormal labs, respiratory distress on vent support via ET tube, acidosis. Cont IV abx CXR noted appreciate ICU team care abnormal lft's US noted will need temp HD line as will benefit from HD will cont to follow with recs trend labs Rx as written Moiz Costa Feb 18, 2019 12:57
--- NOTE | 2019-02-18 14:00 | NUR ---
NURSE NOTES: Blood pressure 141/60, HR 72, SpO2 100%, RR 30. Patient RASS score fluctuates from -1 to -2 with fentanyl drip 200mcg/hr and Versed 10mcg/hr. Will continue to monitor and titrate drips per protocol. Patient bed in low position with bed alarm on and call light in reach. Patient has saline soaked gauze over his eyes to keep them hydrated. He is unable to close them all the way due to swelling of bilateral sclera of the lower part of the eye. Patient continues to have edema non-pitting of the abdomen and upper extremities and pitting +2 edema of the lower extremities. Patient has bilateral soft wrist restraint with intact peripheral pulses. Patient continues to have generalized edema. Patient resting with no sign of acute distress at this time.
--- NOTE | 2019-02-18 14:24 | Nephrology Progress Note ---
Assessment/Plan Problem List: (1) ISH (acute kidney injury) Assessment: Cr lowering (2) HIV (human immunodeficiency virus infection) (3) NSTEMI (non-ST elevated myocardial infarction) Assessment: troponin decreasing (4) Hypoxia (5) Anemia (6) Diabetes Assessment Acute Renal failure- Cr leveling- Urine out put is good Acidosis improved Acute respiratory failure- Require intubation and Mechanical Ventilation- Anemia- Elevated troponin / PA HTN DM HIV Antibody + Plan Zaroxylin one dose stop IV fluid Kayexelate as needed BP med adjustment ? recheck 2D echo?? IV D5W Off Bicitra UA and urine studies Avoid Nephrotoxics as possible Monitor renal parameters keep BP and BS in check Per orders No HD at this time Kidney RADHA noted adjust BP meds add Isordil Subjective ROS Limited/Unobtainable: Yes Objective Objective Last 24 Hour Vital Signs Date Time Temp Pulse Resp B/P (MAP) Pulse Ox O2 Delivery O2 Flow Rate FiO2 02/18/19 14:00 71 30 136/57 (83) 100 02/18/19 13:30 71 29 137/58 (84) 99 02/18/19 13:22 75 30 40 02/18/19 13:00 30 Mechanical Ventilator 40 02/18/19 13:00 30 Mechanical Ventilator 40 02/18/19 13:00 76 30 156/61 (92) 100 02/18/19 12:30 78 30 150/72 (98) 100 02/18/19 12:16 30 Mechanical Ventilator 40 02/18/19 12:00 Mechanical Ventilator Mechanical Ventilator 02/18/19 12:00 97.6 82 30 157/71 (99) 100 02/18/19 12:00 30 Mechanical Ventilator 40 02/18/19 12:00 77 02/18/19 12:00 40 02/18/19 11:30 79 30 174/102 (126) 100 02/18/19 11:28 159/69 02/18/19 11:28 159/69 02/18/19 11:12 80 24 40 02/18/19 11:10 80 24 100 Mechanical Ventilator 40 02/18/19 11:00 77 30 167/70 (102) 100 02/18/19 11:00 30 Mechanical Ventilator 40 02/18/19 11:00 30 Mechanical Ventilator 40 02/18/19 11:00 80 24 99 Mechanical Ventilator 40 02/18/19 10:30 67 30 140/57 (84) 100 02/18/19 10:00 74 30 157/66 (96) 100 02/18/19 10:00 30 Mechanical Ventilator 40 02/18/19 10:00 30 Mechanical Ventilator 40 02/18/19 09:30 73 30 147/62 (90) 100 02/18/19 09:00 81 30 92/65 (74) 100 02/18/19 09:00 30 Mechanical Ventilator 40 02/18/19 09:00 30 40 02/18/19 08:55 73 134/56 02/18/19 08:54 74 134/56 02/18/19 08:49 88 30 40 02/18/19 08:30 73 30 134/56 (82) 98 02/18/19 08:00 75 02/18/19 08:00 97.4 75 30 139/57 (84) 100 02/18/19 08:00 30 Mechanical Ventilator 40 02/18/19 08:00 30 Mechanical Ventilator 40 02/18/19 08:00 Mechanical Ventilator Mechanical Ventilator 02/18/19 08:00 40 02/18/19 07:30 87 30 162/79 (106) 100 02/18/19 07:00 69 30 124/51 (75) 98 02/18/19 07:00 30 Mechanical Ventilator 40 02/18/19 06:40 71 30 100 Mechanical Ventilator 40 02/18/19 06:37 79 30 40 02/18/19 06:33 71 30 99 Mechanical Ventilator 40 02/18/19 06:30 71 27 124/51 (75) 97 02/18/19 06:28 30 Mechanical Ventilator 40 02/18/19 06:00 74 22 136/56 (82) 100 02/18/19 06:00 22 Mechanical Ventilator 40 02/18/19 05:36 178/78 02/18/19 05:36 178/78 02/18/19 05:36 178/78 02/18/19 05:30 88 23 166/92 (116) 100 02/18/19 05:01 78 30 40 02/18/19 05:00 23 Mechanical Ventilator 40 02/18/19 05:00 81 30 162/76 (104) 100 02/18/19 04:41 173/74 02/18/19 04:30 80 30 173/74 (107) 100 02/18/19 04:00 30 Mechanical Ventilator 40 02/18/19 04:00 Mechanical Ventilator Mechanical Ventilator Mechanical Ventilator 02/18/19 04:00 97.7 88 30 179/75 (109) 99 02/18/19 04:00 40 02/18/19 03:30 84 30 135/94 (108) 100 02/18/19 03:26 84 30 100 Mechanical Ventilator 40 02/18/19 03:16 64 30 98 Mechanical Ventilator 40 02/18/19 03:16 64 30 40 02/18/19 03:00 65 28 158/61 (93) 99 02/18/19 02:57 65 02/18/19 02:30 65 30 157/65 (95) 98 02/18/19 02:24 30 Mechanical Ventilator 40 02/18/19 02:00 64 30 150/62 (91) 98 02/18/19 01:30 64 30 147/52 (83) 98 02/18/19 01:12 30 Mechanical Ventilator 40 02/18/19 01:00 65 30 151/61 (91) 99 02/18/19 01:00 65 30 40 02/18/19 01:00 30 Mechanical Ventilator 40 02/18/19 00:30 67 30 151/61 (91) 97 02/18/19 00:00 Mechanical Ventilator Mechanical Ventilator Mechanical Ventilator 02/18/19 00:00 30 Mechanical Ventilator 40 02/18/19 00:00 98.0 67 30 153/60 (91) 98 02/18/19 00:00 40 02/17/19 23:33 147/57 02/17/19 23:33 147/57 02/17/19 23:30 65 30 147/57 (87) 99 02/17/19 23:25 65 30 99 Mechanical Ventilator 40 02/17/19 23:15 65 30 98 Mechanical Ventilator 40 02/17/19 23:15 65 30 40 02/17/19 23:00 67 30 148/56 (86) 99 02/17/19 23:00 30 Mechanical Ventilator 40 02/17/19 22:59 67 02/17/19 22:30 68 30 157/58 (91) 99 02/17/19 22:00 30 Mechanical Ventilator 40 02/17/19 22:00 80 18 177/76 (109) 100 02/17/19 21:39 154/62 02/17/19 21:30 70 30 154/62 (92) 98 02/17/19 21:09 77 31 40 02/17/19 21:00 76 30 151/67 (95) 100 02/17/19 21:00 30 Mechanical Ventilator 40 02/17/19 20:43 70 138/58 02/17/19 20:30 70 30 138/58 (84) 97 02/17/19 20:08 30 Mechanical Ventilator 40 02/17/19 20:00 40 02/17/19 20:00 Mechanical Ventilator Mechanical Ventilator Mechanical Ventilator 02/17/19 20:00 98.4 72 30 135/58 (83) 98 02/17/19 20:00 30 Mechanical Ventilator 40 02/17/19 19:30 72 30 134/58 (83) 98 02/17/19 19:24 71 30 99 Mechanical Ventilator 40 02/17/19 19:14 71 30 99 Mechanical Ventilator 40 02/17/19 19:14 71 02/17/19 19:13 71 30 40 02/17/19 19:00 71 30 134/57 (82) 98 02/17/19 19:00 30 Mechanical Ventilator 40 02/17/19 19:00 30 Mechanical Ventilator 40 02/17/19 18:30 85 30 136/60 (85) 99 02/17/19 18:30 82 28 162/73 (102) 100 02/17/19 18:00 83 30 162/73 (102) 98 02/17/19 18:00 30 Mechanical Ventilator 40 02/17/19 18:00 30 40 02/17/19 18:00 87 19 225/76 (125) 99 02/17/19 17:54 184/70 02/17/19 17:53 184/70 02/17/19 17:30 70 30 177/98 (124) 98 02/17/19 17:00 77 29 175/100 (125) 98 02/17/19 17:00 29 Mechanical Ventilator 40 02/17/19 17:00 30 40 02/17/19 16:49 69 30 40 02/17/19 16:30 70 18 151/67 (95) 99 02/17/19 16:00 72 02/17/19 16:00 98.5 72 30 157/73 (101) 98 02/17/19 16:00 30 Mechanical Ventilator 40 02/17/19 16:00 30 Mechanical Ventilator 40 02/17/19 16:00 40 02/17/19 16:00 Mechanical Ventilator Mechanical Ventilator Mechanical Ventilator 02/17/19 15:36 30 Mechanical Ventilator 40 02/17/19 15:30 84 18 200/171 (181) 99 02/17/19 15:16 85 30 100 Mechanical Ventilator 40 02/17/19 15:06 85 30 100 Mechanical Ventilator 40 02/17/19 15:04 85 30 40 02/17/19 15:00 83 30 197/159 (172) 100 02/17/19 15:00 26 Mechanical Ventilator 40 02/17/19 15:00 26 Mechanical Ventilator 40 02/17/19 14:45 81 27 205/85 (125) 100 02/17/19 14:30 90 30 230/139 (169) 99 Intake and Output 02/17/19 02/18/19 19:00 07:00 Intake Total 2758.5 ml 2438.5 ml Output Total 2550 ml 1940 ml Balance 208.5 ml 498.5 ml Free Water 230 ml IV Total 2012.5 ml 1778.5 ml Tube Feeding 516 ml 430 ml Other 230 ml Output Urine Total 2550 ml 1940 ml # Bowel Movements 3 2 Laboratory Tests 02/18/19 05:30: White Blood Count 8.1, Red Blood Count 3.68L, Hemoglobin 10.3L, Hematocrit 31.8L , Mean Corpuscular Volume 87, Mean Corpuscular Hemoglobin 28.1, Mean Corpuscular Hemoglobin Concent 32.4, Red Cell Distribution Width 17.4H, Platelet Count 310, Mean Platelet Volume 6.4L, Neutrophils (%) (Auto) 83.5H, Lymphocytes (%) (Auto) 9.2L, Monocytes (%) (Auto) 6.7, Eosinophils (%) (Auto) 0.2, Basophils (%) (Auto) 0.3, Sodium Level 142, Potassium Level 4.3, Chloride Level 107, Carbon Dioxide Level 25, Anion Gap 10, Blood Urea Nitrogen 62H, Creatinine 2.4H, Estimat Glomerular Filtration Rate 27.8, Glucose Level 216H, Uric Acid 3.0, Calcium Level 8.5, Phosphorus Level 4.2, Magnesium Level 2.2, Total Bilirubin 0.4, Aspartate Amino Transf (AST/SGOT) 47H, Alanine Aminotransferase (ALT/SGPT) 58, Alkaline Phosphatase 161H, Ammonia 17, Troponin I 0.836H, C-Reactive Protein, Quantitative 1.4H, Pro-B-Type Natriuretic Peptide 4140H, Total Protein 6.1L, Albumin 2.2L, Globulin 3.9, Albumin/Globulin Ratio 0.6L, Random Vancomycin Level 9.0 02/18/19 08:30: Arterial Blood pH 7.494H, Arterial Blood Partial Pressure CO2 29.3L, Arterial Blood Partial Pressure O2 82.7, Arterial Blood HCO3 22.0, Arterial Blood Oxygen Saturation 95.1, Arterial Blood Base Excess -0.7, Benny Test Positive Height (Feet): 6 Height (Inches): 0.00 Weight (Pounds): 274 General Appearance: no apparent distress EENT: other - vented Neck: limited range of motion Cardiovascular: normal rate Respiratory/Chest: decreased breath sounds Abdomen: distended Mike Mcdonald MD Feb 18, 2019 14:24
--- NOTE | 2019-02-18 14:30 | NUR ---
NURSE NOTES: Dr Nichols called back regarding the patient's blood sugar drop to 117. He ordered for the set NovoLOG dose to be changed from 16units to 10units every 4 hours SQ along with sliding scare. Will continue to monitor and administer novoLOG as ordered.
--- NOTE | 2019-02-18 15:01 | General Progress Note ---
Assessment/Plan Status: unchanged Assessment/Plan: 58 y Male admitted to the hospital due to fever, shortness of breath and chest pain. # Multilobar pneumonia in patient with HIV- worse # Acute Hypoxemic respiratory failure # ARDS - improved - Broad sp atbx. Will continue Zosyn, Vancomycin and Azithromycin - Bactrim added for PCP coverage - Droplet precaution -DCed - Oxygen support - ID consult appreciated. AFB, cocci, hystoplasma, legionella, ordered. . - Patient s/p emergent bronchoscopy given florid ARDS - Cont mechanical ventilation, settings per pulmonary # NSTEMI - EKG with bifascicular block RBB and LAFB, no ST changes. - Trend troponin x3 - ECHO completed with no WMA and preserved EF. Dr. Francois consulted. Consideration for outpatient cath vs possibly myocarditis due to underlying viral infection. No evidence of Takotsubo per TTE. - NGT prn - Pain control with morphine # HIV - Continue HARRT - VL is undetectable per patient report. 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 BP improved Objective Last 24 Hour Vital Signs Date Time Temp Pulse Resp B/P (MAP) Pulse Ox O2 Delivery O2 Flow Rate FiO2 02/18/19 14:42 143/66 02/18/19 14:30 71 30 143/66 (91) 100 02/18/19 14:00 71 30 136/57 (83) 100 02/18/19 13:30 71 29 137/58 (84) 99 02/18/19 13:22 75 30 40 02/18/19 13:00 30 Mechanical Ventilator 40 02/18/19 13:00 30 Mechanical Ventilator 40 02/18/19 13:00 76 30 156/61 (92) 100 02/18/19 12:30 78 30 150/72 (98) 100 02/18/19 12:16 30 Mechanical Ventilator 40 02/18/19 12:00 Mechanical Ventilator Mechanical Ventilator 02/18/19 12:00 97.6 82 30 157/71 (99) 100 02/18/19 12:00 30 Mechanical Ventilator 40 02/18/19 12:00 77 02/18/19 12:00 40 02/18/19 11:30 79 30 174/102 (126) 100 02/18/19 11:28 159/69 02/18/19 11:28 159/69 02/18/19 11:12 80 24 40 02/18/19 11:10 80 24 100 Mechanical Ventilator 40 02/18/19 11:00 77 30 167/70 (102) 100 02/18/19 11:00 30 Mechanical Ventilator 40 02/18/19 11:00 30 Mechanical Ventilator 40 02/18/19 11:00 80 24 99 Mechanical Ventilator 40 02/18/19 10:30 67 30 140/57 (84) 100 02/18/19 10:00 74 30 157/66 (96) 100 02/18/19 10:00 30 Mechanical Ventilator 40 02/18/19 10:00 30 Mechanical Ventilator 40 02/18/19 09:30 73 30 147/62 (90) 100 02/18/19 09:00 81 30 92/65 (74) 100 02/18/19 09:00 30 Mechanical Ventilator 40 02/18/19 09:00 30 40 02/18/19 08:55 73 134/56 02/18/19 08:54 74 134/56 02/18/19 08:49 88 30 40 02/18/19 08:30 73 30 134/56 (82) 98 02/18/19 08:00 75 02/18/19 08:00 97.4 75 30 139/57 (84) 100 02/18/19 08:00 30 Mechanical Ventilator 40 02/18/19 08:00 30 Mechanical Ventilator 40 02/18/19 08:00 Mechanical Ventilator Mechanical Ventilator 02/18/19 08:00 40 02/18/19 07:30 87 30 162/79 (106) 100 02/18/19 07:00 69 30 124/51 (75) 98 02/18/19 07:00 30 Mechanical Ventilator 40 02/18/19 06:40 71 30 100 Mechanical Ventilator 40 02/18/19 06:37 79 30 40 02/18/19 06:33 71 30 99 Mechanical Ventilator 40 02/18/19 06:30 71 27 124/51 (75) 97 02/18/19 06:28 30 Mechanical Ventilator 40 02/18/19 06:00 74 22 136/56 (82) 100 02/18/19 06:00 22 Mechanical Ventilator 40 02/18/19 05:36 178/78 02/18/19 05:36 178/78 02/18/19 05:36 178/78 02/18/19 05:30 88 23 166/92 (116) 100 02/18/19 05:01 78 30 40 02/18/19 05:00 23 Mechanical Ventilator 40 02/18/19 05:00 81 30 162/76 (104) 100 02/18/19 04:41 173/74 02/18/19 04:30 80 30 173/74 (107) 100 02/18/19 04:00 30 Mechanical Ventilator 40 02/18/19 04:00 Mechanical Ventilator Mechanical Ventilator Mechanical Ventilator 02/18/19 04:00 97.7 88 30 179/75 (109) 99 02/18/19 04:00 40 02/18/19 03:30 84 30 135/94 (108) 100 02/18/19 03:26 84 30 100 Mechanical Ventilator 40 02/18/19 03:16 64 30 98 Mechanical Ventilator 40 02/18/19 03:16 64 30 40 02/18/19 03:00 65 28 158/61 (93) 99 02/18/19 02:57 65 02/18/19 02:30 65 30 157/65 (95) 98 02/18/19 02:24 30 Mechanical Ventilator 40 02/18/19 02:00 64 30 150/62 (91) 98 02/18/19 01:30 64 30 147/52 (83) 98 02/18/19 01:12 30 Mechanical Ventilator 40 02/18/19 01:00 65 30 151/61 (91) 99 02/18/19 01:00 65 30 40 02/18/19 01:00 30 Mechanical Ventilator 40 02/18/19 00:30 67 30 151/61 (91) 97 02/18/19 00:00 Mechanical Ventilator Mechanical Ventilator Mechanical Ventilator 02/18/19 00:00 30 Mechanical Ventilator 40 02/18/19 00:00 98.0 67 30 153/60 (91) 98 02/18/19 00:00 40 02/17/19 23:33 147/57 02/17/19 23:33 147/57 02/17/19 23:30 65 30 147/57 (87) 99 02/17/19 23:25 65 30 99 Mechanical Ventilator 40 02/17/19 23:15 65 30 98 Mechanical Ventilator 40 02/17/19 23:15 65 30 40 02/17/19 23:00 67 30 148/56 (86) 99 02/17/19 23:00 30 Mechanical Ventilator 40 02/17/19 22:59 67 02/17/19 22:30 68 30 157/58 (91) 99 02/17/19 22:00 30 Mechanical Ventilator 40 02/17/19 22:00 80 18 177/76 (109) 100 02/17/19 21:39 154/62 02/17/19 21:30 70 30 154/62 (92) 98 02/17/19 21:09 77 31 40 02/17/19 21:00 76 30 151/67 (95) 100 02/17/19 21:00 30 Mechanical Ventilator 40 02/17/19 20:43 70 138/58 02/17/19 20:30 70 30 138/58 (84) 97 02/17/19 20:08 30 Mechanical Ventilator 40 02/17/19 20:00 40 02/17/19 20:00 Mechanical Ventilator Mechanical Ventilator Mechanical Ventilator 02/17/19 20:00 98.4 72 30 135/58 (83) 98 02/17/19 20:00 30 Mechanical Ventilator 40 02/17/19 19:30 72 30 134/58 (83) 98 02/17/19 19:24 71 30 99 Mechanical Ventilator 40 02/17/19 19:14 71 30 99 Mechanical Ventilator 40 02/17/19 19:14 71 02/17/19 19:13 71 30 40 02/17/19 19:00 71 30 134/57 (82) 98 02/17/19 19:00 30 Mechanical Ventilator 40 02/17/19 19:00 30 Mechanical Ventilator 40 02/17/19 18:30 85 30 136/60 (85) 99 02/17/19 18:30 82 28 162/73 (102) 100 02/17/19 18:00 83 30 162/73 (102) 98 02/17/19 18:00 30 Mechanical Ventilator 40 02/17/19 18:00 30 40 02/17/19 18:00 87 19 225/76 (125) 99 02/17/19 17:54 184/70 02/17/19 17:53 184/70 02/17/19 17:30 70 30 177/98 (124) 98 02/17/19 17:00 77 29 175/100 (125) 98 02/17/19 17:00 29 Mechanical Ventilator 40 02/17/19 17:00 30 40 02/17/19 16:49 69 30 40 02/17/19 16:30 70 18 151/67 (95) 99 02/17/19 16:00 72 02/17/19 16:00 98.5 72 30 157/73 (101) 98 02/17/19 16:00 30 Mechanical Ventilator 40 02/17/19 16:00 30 Mechanical Ventilator 40 02/17/19 16:00 40 02/17/19 16:00 Mechanical Ventilator Mechanical Ventilator Mechanical Ventilator 02/17/19 15:36 30 Mechanical Ventilator 40 02/17/19 15:30 84 18 200/171 (181) 99 02/17/19 15:16 85 30 100 Mechanical Ventilator 40 02/17/19 15:06 85 30 100 Mechanical Ventilator 40 02/17/19 15:04 85 30 40 Intake and Output 02/17/19 02/18/19 19:00 07:00 Intake Total 2758.5 ml 2438.5 ml Output Total 2550 ml 1940 ml Balance 208.5 ml 498.5 ml Free Water 230 ml IV Total 2012.5 ml 1778.5 ml Tube Feeding 516 ml 430 ml Other 230 ml Output Urine Total 2550 ml 1940 ml # Bowel Movements 3 2 Laboratory Tests 02/18/19 05:30: White Blood Count 8.1, Red Blood Count 3.68L, Hemoglobin 10.3L, Hematocrit 31.8L , Mean Corpuscular Volume 87, Mean Corpuscular Hemoglobin 28.1, Mean Corpuscular Hemoglobin Concent 32.4, Red Cell Distribution Width 17.4H, Platelet Count 310, Mean Platelet Volume 6.4L, Neutrophils (%) (Auto) 83.5H, Lymphocytes (%) (Auto) 9.2L, Monocytes (%) (Auto) 6.7, Eosinophils (%) (Auto) 0.2, Basophils (%) (Auto) 0.3, Sodium Level 142, Potassium Level 4.3, Chloride Level 107, Carbon Dioxide Level 25, Anion Gap 10, Blood Urea Nitrogen 62H, Creatinine 2.4H, Estimat Glomerular Filtration Rate 27.8, Glucose Level 216H, Uric Acid 3.0, Calcium Level 8.5, Phosphorus Level 4.2, Magnesium Level 2.2, Total Bilirubin 0.4, Aspartate Amino Transf (AST/SGOT) 47H, Alanine Aminotransferase (ALT/SGPT) 58, Alkaline Phosphatase 161H, Ammonia 17, Troponin I 0.836H, C-Reactive Protein, Quantitative 1.4H, Pro-B-Type Natriuretic Peptide 4140H, Total Protein 6.1L, Albumin 2.2L, Globulin 3.9, Albumin/Globulin Ratio 0.6L, Random Vancomycin Level 9.0 02/18/19 08:30: Arterial Blood pH 7.494H, Arterial Blood Partial Pressure CO2 29.3L, Arterial Blood Partial Pressure O2 82.7, Arterial Blood HCO3 22.0, Arterial Blood Oxygen Saturation 95.1, Arterial Blood Base Excess -0.7, Benny Test Positive Height (Feet): 6 Height (Inches): 0.00 Weight (Pounds): 274 Objective General Appearance: Intubated, sedated. 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
--- NOTE | 2019-02-18 15:04 | Infectious Diseases Prog Note ---
Assessment/Plan Assessment/Plan A) 1) pneumonia - ? etiology, ? CAP, ? pcp, ? fungal (cryptococcus/cocci), possible sepsis now, ARDS 2) intubated on vent, s/p bronchoscopy, ARF, ? 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 Meredith and we both agree that still could be pneumocystis pna and to continue bactrim 4) monitor labs and chest x-ray 5) critical condition, icu supportive care, vent support 6) d/w Dr. Douglas 7) clinically improved, weaning planned Subjective Constitutional: Denies: fever HEENT: Denies: congestion Respiratory: Denies: shortness of breath Cardiovascular: Denies: chest pain Gastrointestinal/Abdominal: Denies: bloating Genitourinary: Denies: dysuria Neurologic: Denies: headache Psychiatric: Denies: depression Skin: Denies: rash Hematologic: Denies: bleeding Musculoskeletal: Denies: pain Allergies: Coded Allergies: No Known Allergies (Unverified , 02/05/13) Objective Vital Signs Last 24 Hour Vital Signs Date Time Temp Pulse Resp B/P (MAP) Pulse Ox O2 Delivery O2 Flow Rate FiO2 02/18/19 14:00 71 30 136/57 (83) 100 02/18/19 13:30 71 29 137/58 (84) 99 02/18/19 13:22 75 30 40 02/18/19 13:00 30 Mechanical Ventilator 40 02/18/19 13:00 30 Mechanical Ventilator 40 02/18/19 13:00 76 30 156/61 (92) 100 02/18/19 12:30 78 30 150/72 (98) 100 02/18/19 12:16 30 Mechanical Ventilator 40 02/18/19 12:00 Mechanical Ventilator Mechanical Ventilator 02/18/19 12:00 97.6 82 30 157/71 (99) 100 02/18/19 12:00 30 Mechanical Ventilator 40 02/18/19 12:00 77 02/18/19 12:00 40 02/18/19 11:30 79 30 174/102 (126) 100 02/18/19 11:28 159/69 02/18/19 11:28 159/69 02/18/19 11:12 80 24 40 02/18/19 11:10 80 24 100 Mechanical Ventilator 40 02/18/19 11:00 77 30 167/70 (102) 100 02/18/19 11:00 30 Mechanical Ventilator 40 02/18/19 11:00 30 Mechanical Ventilator 40 02/18/19 11:00 80 24 99 Mechanical Ventilator 40 02/18/19 10:30 67 30 140/57 (84) 100 02/18/19 10:00 74 30 157/66 (96) 100 02/18/19 10:00 30 Mechanical Ventilator 40 02/18/19 10:00 30 Mechanical Ventilator 40 02/18/19 09:30 73 30 147/62 (90) 100 02/18/19 09:00 81 30 92/65 (74) 100 02/18/19 09:00 30 Mechanical Ventilator 40 02/18/19 09:00 30 40 02/18/19 08:55 73 134/56 02/18/19 08:54 74 134/56 02/18/19 08:49 88 30 40 02/18/19 08:30 73 30 134/56 (82) 98 02/18/19 08:00 75 02/18/19 08:00 97.4 75 30 139/57 (84) 100 02/18/19 08:00 30 Mechanical Ventilator 40 02/18/19 08:00 30 Mechanical Ventilator 40 02/18/19 08:00 Mechanical Ventilator Mechanical Ventilator 02/18/19 08:00 40 02/18/19 07:30 87 30 162/79 (106) 100 02/18/19 07:00 69 30 124/51 (75) 98 02/18/19 07:00 30 Mechanical Ventilator 40 02/18/19 06:40 71 30 100 Mechanical Ventilator 40 02/18/19 06:37 79 30 40 02/18/19 06:33 71 30 99 Mechanical Ventilator 40 02/18/19 06:30 71 27 124/51 (75) 97 02/18/19 06:28 30 Mechanical Ventilator 40 02/18/19 06:00 74 22 136/56 (82) 100 02/18/19 06:00 22 Mechanical Ventilator 40 02/18/19 05:36 178/78 02/18/19 05:36 178/78 02/18/19 05:36 178/78 02/18/19 05:30 88 23 166/92 (116) 100 02/18/19 05:01 78 30 40 02/18/19 05:00 23 Mechanical Ventilator 40 02/18/19 05:00 81 30 162/76 (104) 100 02/18/19 04:41 173/74 02/18/19 04:30 80 30 173/74 (107) 100 02/18/19 04:00 30 Mechanical Ventilator 40 02/18/19 04:00 Mechanical Ventilator Mechanical Ventilator Mechanical Ventilator 02/18/19 04:00 97.7 88 30 179/75 (109) 99 02/18/19 04:00 40 02/18/19 03:30 84 30 135/94 (108) 100 02/18/19 03:26 84 30 100 Mechanical Ventilator 40 02/18/19 03:16 64 30 98 Mechanical Ventilator 40 02/18/19 03:16 64 30 40 02/18/19 03:00 65 28 158/61 (93) 99 02/18/19 02:57 65 02/18/19 02:30 65 30 157/65 (95) 98 02/18/19 02:24 30 Mechanical Ventilator 40 02/18/19 02:00 64 30 150/62 (91) 98 02/18/19 01:30 64 30 147/52 (83) 98 02/18/19 01:12 30 Mechanical Ventilator 40 02/18/19 01:00 65 30 151/61 (91) 99 02/18/19 01:00 65 30 40 02/18/19 01:00 30 Mechanical Ventilator 40 02/18/19 00:30 67 30 151/61 (91) 97 02/18/19 00:00 Mechanical Ventilator Mechanical Ventilator Mechanical Ventilator 02/18/19 00:00 30 Mechanical Ventilator 40 02/18/19 00:00 98.0 67 30 153/60 (91) 98 02/18/19 00:00 40 02/17/19 23:33 147/57 02/17/19 23:33 147/57 02/17/19 23:30 65 30 147/57 (87) 99 02/17/19 23:25 65 30 99 Mechanical Ventilator 40 02/17/19 23:15 65 30 98 Mechanical Ventilator 40 02/17/19 23:15 65 30 40 02/17/19 23:00 67 30 148/56 (86) 99 02/17/19 23:00 30 Mechanical Ventilator 40 02/17/19 22:59 67 02/17/19 22:30 68 30 157/58 (91) 99 02/17/19 22:00 30 Mechanical Ventilator 40 02/17/19 22:00 80 18 177/76 (109) 100 02/17/19 21:39 154/62 02/17/19 21:30 70 30 154/62 (92) 98 02/17/19 21:09 77 31 40 02/17/19 21:00 76 30 151/67 (95) 100 02/17/19 21:00 30 Mechanical Ventilator 40 02/17/19 20:43 70 138/58 02/17/19 20:30 70 30 138/58 (84) 97 02/17/19 20:08 30 Mechanical Ventilator 40 02/17/19 20:00 40 02/17/19 20:00 Mechanical Ventilator Mechanical Ventilator Mechanical Ventilator 02/17/19 20:00 98.4 72 30 135/58 (83) 98 02/17/19 20:00 30 Mechanical Ventilator 40 02/17/19 19:30 72 30 134/58 (83) 98 02/17/19 19:24 71 30 99 Mechanical Ventilator 40 02/17/19 19:14 71 30 99 Mechanical Ventilator 40 02/17/19 19:14 71 02/17/19 19:13 71 30 40 02/17/19 19:00 71 30 134/57 (82) 98 02/17/19 19:00 30 Mechanical Ventilator 40 02/17/19 19:00 30 Mechanical Ventilator 40 02/17/19 18:30 85 30 136/60 (85) 99 02/17/19 18:30 82 28 162/73 (102) 100 02/17/19 18:00 83 30 162/73 (102) 98 02/17/19 18:00 30 Mechanical Ventilator 40 02/17/19 18:00 30 40 02/17/19 18:00 87 19 225/76 (125) 99 02/17/19 17:54 184/70 02/17/19 17:53 184/70 02/17/19 17:30 70 30 177/98 (124) 98 02/17/19 17:00 77 29 175/100 (125) 98 02/17/19 17:00 29 Mechanical Ventilator 40 02/17/19 17:00 30 40 02/17/19 16:49 69 30 40 02/17/19 16:30 70 18 151/67 (95) 99 02/17/19 16:00 72 02/17/19 16:00 98.5 72 30 157/73 (101) 98 02/17/19 16:00 30 Mechanical Ventilator 40 02/17/19 16:00 30 Mechanical Ventilator 40 02/17/19 16:00 40 02/17/19 16:00 Mechanical Ventilator Mechanical Ventilator Mechanical Ventilator 02/17/19 15:36 30 Mechanical Ventilator 40 02/17/19 15:30 84 18 200/171 (181) 99 02/17/19 15:16 85 30 100 Mechanical Ventilator 40 02/17/19 15:06 85 30 100 Mechanical Ventilator 40 02/17/19 15:04 85 30 40 02/17/19 15:00 83 30 197/159 (172) 100 02/17/19 15:00 26 Mechanical Ventilator 40 02/17/19 15:00 26 Mechanical Ventilator 40 02/17/19 14:45 81 27 205/85 (125) 100 Height (Feet): 6 Height (Inches): 0.00 Weight (Pounds): 274 General Appearance: no acute distress HEENT: normocephalic, atraumatic, anicteric, mucous membranes moist Respiratory/Chest: lungs clear, normal breath sounds, no respiratory distress, no accessory muscle use Cardiovascular: normal rate, regular rhythm, no gallop/murmur, no JVD Abdomen: normal bowel sounds, soft, non tender, no organomegaly, non distended Genitourinary: other - no smith Extremities: no cyanosis Skin: no rash 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 Enteric tube courses past the diaphragm and out of the field of view. Lungs/pleura: Slightly decreased but persistent patchy consolidations in the right lung. Slightly decreased left perihilar opacities/consolidations. Possible small bilateral pleural effusions. Heart/mediastinum: Stable mild enlargement of the cardiomediastinal silhouette. Soft tissues: Unremarkable. Bones: No acute fracture. Degenerative changes of the visualized right acromioclavicular joint. Degenerative changes of the spine. Upper abdomen: Normal. 02/11/19 - chest x-ray - IMPRESSION: Slightly decreased but persistent patchy consolidations in the right lung. Slightly decreased left perihilar opacities. Findings may IMPRESSION: 1. No significant change in the interstitial and alveolar opacities in bilateral lungs. 2. Possible small bilateral pleural effusions, unchanged. represent infectious/inflammatory process and/or pulmonary edema. Possible small bilateral pleural effusions. 02/16/19 - chest x-ray - Impression: Worsening of aeration with increasing interstitial and bilateral predominantly perihilar airspace disease. Findings likely related to worsening CHF/pulmonary edema. Superimposed pneumonia to be excluded clinically. Follow-up recommended. Chest x-ray - 02/18/19 - COMPARISON: Chest radiograph on 02/16/2019 FINDINGS: Hardware: Endotracheal tube terminates in the region of the mid thoracic trachea. Enteric tube courses past the diaphragm and out of the field of view. Lungs/pleura: Slightly decreased but persistent hazy and interstitial opacities. Persistent small left pleural effusion. Heart/mediastinum: Stable mild enlargement of the cardiomediastinal silhouette. Soft tissues: Unremarkable. Bones: No acute fracture. Upper abdomen: Normal. IMPRESSION: Slightly decreased but persistent changes suggesting pulmonary edema. Component of infectious/inflammatory process is not excluded. Persistent small left pleural effusion. Microbiology Date/Time Source Procedure Growth Status 02/06/19 14:15 Blood Blood Culture - Final NO GROWTH AFTER 5 DAYS Complete 02/09/19 14:45 Sputum Expectorated Virus Culture - Preliminary Resulted 02/09/19 14:45 Sputum Expectorated Pneumocystis jiroveci Smear (DFA) - Final Resulted 02/06/19 17:10 Rectal Mucosa - Final NO CARBAPENEM-RESISTANT ENTEROBACTERI... Complete Laboratory Tests Test 02/18/19 05:30 02/18/19 08:30 White Blood Count 8.1 K/UL (4.8-10.8) Red Blood Count 3.68 M/UL (4.70-6.10) L Hemoglobin 10.3 G/DL (14.2-18.0) L Hematocrit 31.8 % (42.0-52.0) L Mean Corpuscular Volume 87 FL (80-99) Mean Corpuscular Hemoglobin 28.1 PG (27.0-31.0) Mean Corpuscular Hemoglobin Concent 32.4 G/DL (32.0-36.0) Red Cell Distribution Width 17.4 % (11.6-14.8) H Platelet Count 310 K/UL (150-450) Mean Platelet Volume 6.4 FL (6.5-10.1) L Neutrophils (%) (Auto) 83.5 % (45.0-75.0) H Lymphocytes (%) (Auto) 9.2 % (20.0-45.0) L Monocytes (%) (Auto) 6.7 % (1.0-10.0) Eosinophils (%) (Auto) 0.2 % (0.0-3.0) Basophils (%) (Auto) 0.3 % (0.0-2.0) Sodium Level 142 MMOL/L (136-145) Potassium Level 4.3 MMOL/L (3.5-5.1) Chloride Level 107 MMOL/L (98-107) Carbon Dioxide Level 25 MMOL/L (21-32) Anion Gap 10 mmol/L (5-15) Blood Urea Nitrogen 62 mg/dL (7-18) H Creatinine 2.4 MG/DL (0.55-1.30) H Estimat Glomerular Filtration Rate 27.8 mL/min (>60) Glucose Level 216 MG/DL (74-106) H Uric Acid 3.0 MG/DL (2.6-7.2) Calcium Level 8.5 MG/DL (8.5-10.1) Phosphorus Level 4.2 MG/DL (2.5-4.9) Magnesium Level 2.2 MG/DL (1.8-2.4) Total Bilirubin 0.4 MG/DL (0.2-1.0) Aspartate Amino Transf (AST/SGOT) 47 U/L (15-37) H Alanine Aminotransferase (ALT/SGPT) 58 U/L (12-78) Alkaline Phosphatase 161 U/L (46-116) H Ammonia 17 umol/L (11-32) Troponin I 0.836 ng/mL (0.000-0.056) C-Reactive Protein, Quantitative 1.4 mg/dL (0.00-0.90) H Pro-B-Type Natriuretic Peptide 4140 pg/mL (0-125) H Total Protein 6.1 G/DL (6.4-8.2) L Albumin 2.2 G/DL (3.4-5.0) L Globulin 3.9 g/dL Albumin/Globulin Ratio 0.6 (1.0-2.7) L Random Vancomycin Level 9.0 ug/mL Arterial Blood pH 7.494 (7.350-7.450) Arterial Blood Partial Pressure CO2 29.3 mmHg (35.0-45.0) L Arterial Blood Partial Pressure O2 82.7 mmHg (75.0-100.0) Arterial Blood HCO3 22.0 mmol/L (22.0-26.0) Arterial Blood Oxygen Saturation 95.1 % (95-100) Arterial Blood Base Excess -0.7 (-2-2) Benny Test Positive Current Medications Medications (Trade) Dose Ordered Sig/Marquis Route PRN Reason Start Time Stop Time Status Last Admin Dose Admin Acetaminophen (Tylenol) 650 mg Q4H PRN ORAL Mild Pain (Pain Scale 1-3) 02/07/19 11:15 03/08/19 17:29 02/07/19 23:01 Acetaminophen/ Butalbital/ Caffeine (Fioricet) 1 tab Q8H PRN ORAL For Headache 02/08/19 17:15 03/10/19 17:14 Albuterol/ Ipratropium (Albuterol/ Ipratropium) 3 ml Q4HRT HHN 02/14/19 23:00 02/19/19 22:59 02/18/19 11:12 Amlodipine Besylate (Norvasc) 10 mg DAILY NG 02/15/19 09:00 03/14/19 15:59 02/18/19 08:55 Artificial Tears (Lacri-Lube) 1 applic AC+HS BOTH EYES 02/18/19 06:30 03/20/19 06:29 02/18/19 11:28 Aspirin (Ecotrin) 81 mg DAILY ORAL 02/08/19 09:00 03/09/19 08:59 02/18/19 08:54 Atorvastatin Calcium (Lipitor) 10 mg QHS ORAL 02/17/19 21:00 03/10/19 20:59 02/17/19 20:43 Bisacodyl (Dulcolax) 5 mg DAILYPRN PRN ORAL Constipation 02/08/19 17:15 03/10/19 17:14 02/13/19 20:34 Chlorhexidine Gluconate (Jessy-Hex 2%) 1 applic DAILY@2000 TOPIC 02/13/19 20:00 03/15/19 19:59 02/17/19 19:34 Clonidine HCl (Catapres Tab) 0.1 mg EVERY 8 HOURS NG 02/17/19 14:00 03/19/19 13:59 02/18/19 05:36 Dextrose (Dextrose 50%) 25 ml Q30M PRN IV Hypoglycemia 02/15/19 18:15 03/17/19 18:14 Dextrose (Dextrose 50%) 50 ml Q30M PRN IV Hypoglycemia 02/15/19 18:15 03/17/19 18:14 Docusate Sodium (Colace) 100 mg TID GT 02/12/19 18:00 03/12/19 08:59 02/18/19 12:31 Enoxaparin Sodium (Lovenox) 40 mg Q24H SUBQ 02/07/19 21:00 03/08/19 20:59 02/17/19 20:44 Fentanyl Citrate 2500 mcg/Sodium Chloride 250 ml @ 0 mls/hr Q24H IV 02/13/19 15:45 02/20/19 15:44 02/18/19 02:24 Fluconazole/ Sodium Chloride 100 ml @ 100 mls/hr Q24H IV 02/14/19 18:00 02/21/19 17:59 02/17/19 17:53 Guaifenesin (Mucinex ER) 600 mg TWICE A DAY ORAL 02/07/19 18:00 03/09/19 08:59 02/18/19 08:54 Hydralazine HCl (Apresoline) 10 mg Q4H PRN IV bp over 165 syst 02/17/19 10:15 03/19/19 10:14 02/18/19 04:41 Hydralazine HCl (Apresoline) 50 mg Q6HR NG 02/14/19 00:00 03/14/19 17:59 02/18/19 11:28 Insulin Aspart (NovoLOG) EVERY 4 HOURS SUBQ 02/15/19 21:00 03/17/19 20:59 02/18/19 12:37 Insulin Aspart (NovoLOG) 16 units EVERY 4 HOURS SUBQ 02/17/19 13:00 03/17/19 20:59 02/18/19 08:57 Isosorbide Dinitrate (Isordil) 20 mg Q6HR NG 02/15/19 12:00 03/15/19 12:59 02/18/19 11:28 Lansoprazole (Prevacid) 30 mg BID NG 02/12/19 18:00 03/14/19 17:59 02/18/19 09:01 Methylprednisolone Sodium Succinate (Solu-MEDROL) 20 mg EVERY 12 HOURS IVP 02/15/19 21:00 03/12/19 20:59 02/18/19 08:55 Metolazone (Zaroxolyn) 10 mg ONCE NG 02/18/19 15:30 02/18/19 17:00 Metoprolol Tartrate (Lopressor) 100 mg Q12HR ORAL 02/07/19 21:00 03/08/19 20:59 02/18/19 08:54 Midazolam HCl (Versed 2mg/2ml vial) 1 mg Q2H PRN IVP Agitation 02/13/19 08:45 03/15/19 08:44 02/14/19 05:49 Midazolam HCl 50 mg/Sodium Chloride 100 ml @ 0 mls/hr Q24H IV 02/13/19 15:45 02/20/19 15:44 02/18/19 12:16 Neomycin/ Polymyxin/ Dexamethasone (Maxitrol Opth Oint) 1 applic BEDTIME BOTH EYES 02/18/19 21:00 03/20/19 20:59 Nitroglycerin (Ntg) 0.4 mg Q5M PRN SL Prn Chest Pain 02/07/19 11:00 03/08/19 17:29 02/08/19 07:42 Ondansetron HCl (Zofran) 4 mg Q6H PRN IVP Nausea & Vomiting 02/07/19 11:15 03/08/19 11:14 02/09/19 00:58 Patient Own Medication (Patient's Own Med) 1 ea BID ORAL 02/07/19 18:00 03/09/19 17:59 02/18/19 08:53 Patient Own Medication (Patient's Own Med) 1 ea Q48H ORAL 02/18/19 09:00 03/20/19 08:59 02/18/19 08:53 Patient Own Medication (Patient's Own Med) 2 ea DAILY ORAL 02/08/19 09:00 03/10/19 08:59 02/17/19 17:53 Piperacillin Sod/ Tazobactam Sod 3.375 gm/Sodium Chloride 110 ml @ 27.5 mls/hr Q12HR@0600,1800 IVPB 02/16/19 18:00 02/23/19 17:59 02/18/19 05:35 Polyethylene Glycol (Miralax) 17 gm BEDTIME ORAL 02/08/19 21:00 03/10/19 20:59 02/17/19 20:43 Sennosides (Senokot) 8.6 mg DAILY ORAL 02/13/19 12:00 03/15/19 11:59 02/18/19 08:54 Trimethoprim/ Sulfamethoxazole 25 ml/Dextrose 575 ml @ 383.333 mls/hr Q12HR@0000,1200 IV 02/17/19 00:00 02/23/19 23:59 02/18/19 12:35 Vancomycin HCl (Vanco rx to dose) 1 ea DAILY PRN MISC . 02/10/19 19:45 03/12/19 19:44 Russ Tony MD Feb 18, 2019 15:04
--- NOTE | 2019-02-18 15:44 | Hematology/Onc Progress Note ---
Assessment/Plan Assessment/Plan ASSESSMENT AND RECOMMENDATIONS # Anemia of chronic disease due to underlying chronic medical issues, multifactorial --> Anemia workup has been reviewed. Ferritin 182 --> No evidence of hemolysis is noted, peripheral smear has been reviewed. --> Hgb goal >7. Transfuse prn. --> Epogen or iron at this time is not particularly indicated --> Medications have been reviewed --> Stool OB negative --> bone marrow biopsy is not indicated given the other more likely causes --> Blood tx: 1 unit on 02/10/19, --> Hgb trend: 7.6-->8.2-->9.4-->8.4-->8.2 -->8.9-->10.3 # Thrombocytopenia - potential causes multifactorial, likely related to HIV status --> Hep panel pending and HIV confirmed positive --> US abd to evaluate for cirrhosis and hsm ordered --> Peripheral smear ordered to evaluate for blasts /schistocytes --> abx and other meds have been reviewed --> ok for ppx if plt >50k w/ either heparin or lovenox --> Transfuse if Plt < 20k and fever, or if Plt < 10k without fever --> Plt trend: 153-->257-->224-->205-->253-->310 --> WILLIAM screen negative # Multilobar pneumonia in patient with HIV. Recs per ID. --> Broad sp atbx started. Continue Zosyn, Vancomycin and Azithromycin --> Droplet precaution # Hypoxemic respiratory failure. Pulm is following, appreciate recs. --> Bipap as needed, transition to O2 via NC when able --> Due to pneumonia, on abx # Chest pain. 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 --> Trend troponin x3 --> NGT prn # HIV. --> Continue HARRT --> VL is undetectable per patient report. # HTN --> Resume home medication # DVT and GI ppx The time the note is entered does not reflect the time the patient was examined. I greatly appreciate the consultation. Subjective Allergies: Coded Allergies: No Known Allergies (Unverified , 02/05/13) Subjective 02/11: Hgb yesterday was 7.6, s/p 1 unit prbc. Current hgb at 8.2. Pt attempted to pull out tubes per nursing team, soft restraints applied. 02/13: Pt in ICU and intubated. Pt currently sedated. Current hgb 9.4. 02/14: Pt remains in icu, sedated. Hgb stable. 02/15: Remains in icu, lethargic. No acute events. Hgb stable. 02/16: Remains in icu. CXR today shows worsening CHF/pulmonary edema. Pt wake and sedation decrease for weaning. 02/18: Remains in icu. Pt on vent. CXR today shows pulmonary edema, persistent small left pleural effusion. Objective Objective Current Medications Medications (Trade) Dose Ordered Sig/Marquis Route PRN Reason Start Time Stop Time Status Last Admin Dose Admin Acetaminophen (Tylenol) 650 mg Q4H PRN ORAL Mild Pain (Pain Scale 1-3) 02/07/19 11:15 03/08/19 17:29 02/07/19 23:01 Acetaminophen/ Butalbital/ Caffeine (Fioricet) 1 tab Q8H PRN ORAL For Headache 02/08/19 17:15 03/10/19 17:14 Albuterol/ Ipratropium (Albuterol/ Ipratropium) 3 ml Q4HRT HHN 02/14/19 23:00 02/19/19 22:59 02/18/19 15:20 Amlodipine Besylate (Norvasc) 10 mg DAILY NG 02/15/19 09:00 03/14/19 15:59 02/18/19 08:55 Artificial Tears (Lacri-Lube) 1 applic AC+HS BOTH EYES 02/18/19 06:30 03/20/19 06:29 02/18/19 11:28 Aspirin (Ecotrin) 81 mg DAILY ORAL 02/08/19 09:00 03/09/19 08:59 02/18/19 08:54 Atorvastatin Calcium (Lipitor) 10 mg QHS ORAL 02/17/19 21:00 03/10/19 20:59 02/17/19 20:43 Bisacodyl (Dulcolax) 5 mg DAILYPRN PRN ORAL Constipation 02/08/19 17:15 03/10/19 17:14 6/25/19 20:34 Chlorhexidine Gluconate (Jessy-Hex 2%) 1 applic DAILY@2000 TOPIC 02/13/19 20:00 03/15/19 19:59 02/17/19 19:34 Clonidine HCl (Catapres Tab) 0.1 mg EVERY 8 HOURS NG 02/17/19 14:00 03/19/19 13:59 02/18/19 14:42 Dextrose (Dextrose 50%) 25 ml Q30M PRN IV Hypoglycemia 02/15/19 18:15 03/17/19 18:14 Dextrose (Dextrose 50%) 50 ml Q30M PRN IV Hypoglycemia 02/15/19 18:15 03/17/19 18:14 Docusate Sodium (Colace) 100 mg TID GT 02/12/19 18:00 03/12/19 08:59 02/18/19 12:31 Enoxaparin Sodium (Lovenox) 40 mg Q24H SUBQ 02/07/19 21:00 03/08/19 20:59 02/17/19 20:44 Fentanyl Citrate 2500 mcg/Sodium Chloride 250 ml @ 0 mls/hr Q24H IV 02/13/19 15:45 02/20/19 15:44 02/18/19 02:24 Fluconazole/ Sodium Chloride 100 ml @ 100 mls/hr Q24H IV 02/14/19 18:00 02/21/19 17:59 02/17/19 17:53 Guaifenesin (Mucinex ER) 600 mg TWICE A DAY ORAL 02/07/19 18:00 03/09/19 08:59 02/18/19 08:54 Hydralazine HCl (Apresoline) 10 mg Q4H PRN IV bp over 165 syst 02/17/19 10:15 03/19/19 10:14 02/18/19 04:41 Hydralazine HCl (Apresoline) 50 mg Q6HR NG 02/14/19 00:00 03/14/19 17:59 02/18/19 11:28 Insulin Aspart (NovoLOG) EVERY 4 HOURS SUBQ 02/15/19 21:00 03/17/19 20:59 02/18/19 12:37 Insulin Aspart (NovoLOG) 16 units EVERY 4 HOURS SUBQ 02/17/19 13:00 03/17/19 20:59 02/18/19 08:57 Isosorbide Dinitrate (Isordil) 20 mg Q6HR NG 02/15/19 12:00 03/15/19 12:59 02/18/19 11:28 Lansoprazole (Prevacid) 30 mg BID NG 02/12/19 18:00 03/14/19 17:59 02/18/19 09:01 Methylprednisolone Sodium Succinate (Solu-MEDROL) 20 mg EVERY 12 HOURS IVP 02/15/19 21:00 03/12/19 20:59 02/18/19 08:55 Metolazone (Zaroxolyn) 10 mg ONCE NG 02/18/19 15:30 02/18/19 17:00 Metoprolol Tartrate (Lopressor) 100 mg Q12HR ORAL 02/07/19 21:00 03/08/19 20:59 02/18/19 08:54 Midazolam HCl (Versed 2mg/2ml vial) 1 mg Q2H PRN IVP Agitation 02/13/19 08:45 03/15/19 08:44 02/14/19 05:49 Midazolam HCl 50 mg/Sodium Chloride 100 ml @ 0 mls/hr Q24H IV 02/13/19 15:45 02/20/19 15:44 02/18/19 12:16 Neomycin/ Polymyxin/ Dexamethasone (Maxitrol Opth Oint) 1 applic BEDTIME BOTH EYES 02/18/19 21:00 03/20/19 20:59 Nitroglycerin (Ntg) 0.4 mg Q5M PRN SL Prn Chest Pain 02/07/19 11:00 03/08/19 17:29 02/08/19 07:42 Ondansetron HCl (Zofran) 4 mg Q6H PRN IVP Nausea & Vomiting 02/07/19 11:15 03/08/19 11:14 02/09/19 00:58 Patient Own Medication (Patient's Own Med) 1 ea BID ORAL 02/07/19 18:00 03/09/19 17:59 02/18/19 08:53 Patient Own Medication (Patient's Own Med) 1 ea Q48H ORAL 02/18/19 09:00 03/20/19 08:59 02/18/19 08:53 Patient Own Medication (Patient's Own Med) 2 ea DAILY ORAL 02/08/19 09:00 03/10/19 08:59 02/17/19 17:53 Piperacillin Sod/ Tazobactam Sod 3.375 gm/Sodium Chloride 110 ml @ 27.5 mls/hr Q12HR@0600,1800 IVPB 02/16/19 18:00 02/23/19 17:59 02/18/19 05:35 Polyethylene Glycol (Miralax) 17 gm BEDTIME ORAL 02/08/19 21:00 03/10/19 20:59 02/17/19 20:43 Sennosides (Senokot) 8.6 mg DAILY ORAL 02/13/19 12:00 03/15/19 11:59 02/18/19 08:54 Trimethoprim/ Sulfamethoxazole 25 ml/Dextrose 575 ml @ 383.333 mls/hr Q12HR@0000,1200 IV 02/17/19 00:00 02/23/19 23:59 02/18/19 12:35 Vancomycin HCl (Vanco rx to dose) 1 ea DAILY PRN MISC . 02/10/19 19:45 03/12/19 19:44 Last 24 Hour Vital Signs Date Time Temp Pulse Resp B/P (MAP) Pulse Ox O2 Delivery O2 Flow Rate FiO2 02/18/19 15:24 68 30 100 Mechanical Ventilator 40 02/18/19 15:10 69 25 99 Mechanical Ventilator 40 02/18/19 15:10 69 30 40 02/18/19 15:00 30 Mechanical Ventilator 40 02/18/19 15:00 30 Mechanical Ventilator 40 02/18/19 15:00 71 30 134/58 (83) 100 02/18/19 14:42 143/66 02/18/19 14:30 71 30 143/66 (91) 100 02/18/19 14:00 71 30 136/57 (83) 100 02/18/19 14:00 30 Mechanical Ventilator 40 02/18/19 14:00 30 Mechanical Ventilator 40 02/18/19 13:30 71 29 137/58 (84) 99 02/18/19 13:22 75 30 40 02/18/19 13:00 30 Mechanical Ventilator 40 02/18/19 13:00 30 Mechanical Ventilator 40 02/18/19 13:00 76 30 156/61 (92) 100 02/18/19 12:30 78 30 150/72 (98) 100 02/18/19 12:16 30 Mechanical Ventilator 40 02/18/19 12:00 Mechanical Ventilator Mechanical Ventilator 02/18/19 12:00 97.6 82 30 157/71 (99) 100 02/18/19 12:00 30 Mechanical Ventilator 40 02/18/19 12:00 77 02/18/19 12:00 40 02/18/19 11:30 79 30 174/102 (126) 100 02/18/19 11:28 159/69 02/18/19 11:28 159/69 02/18/19 11:12 80 24 40 02/18/19 11:10 80 24 100 Mechanical Ventilator 40 02/18/19 11:00 77 30 167/70 (102) 100 02/18/19 11:00 30 Mechanical Ventilator 40 02/18/19 11:00 30 Mechanical Ventilator 40 02/18/19 11:00 80 24 99 Mechanical Ventilator 40 02/18/19 10:30 67 30 140/57 (84) 100 02/18/19 10:00 74 30 157/66 (96) 100 02/18/19 10:00 30 Mechanical Ventilator 40 02/18/19 10:00 30 Mechanical Ventilator 40 02/18/19 09:30 73 30 147/62 (90) 100 02/18/19 09:00 81 30 92/65 (74) 100 02/18/19 09:00 30 Mechanical Ventilator 40 02/18/19 09:00 30 40 02/18/19 08:55 73 134/56 02/18/19 08:54 74 134/56 02/18/19 08:49 88 30 40 02/18/19 08:30 73 30 134/56 (82) 98 02/18/19 08:00 75 02/18/19 08:00 97.4 75 30 139/57 (84) 100 02/18/19 08:00 30 Mechanical Ventilator 40 02/18/19 08:00 30 Mechanical Ventilator 40 02/18/19 08:00 Mechanical Ventilator Mechanical Ventilator 02/18/19 08:00 40 02/18/19 07:30 87 30 162/79 (106) 100 02/18/19 07:00 69 30 124/51 (75) 98 02/18/19 07:00 30 Mechanical Ventilator 40 02/18/19 06:40 71 30 100 Mechanical Ventilator 40 02/18/19 06:37 79 30 40 02/18/19 06:33 71 30 99 Mechanical Ventilator 40 02/18/19 06:30 71 27 124/51 (75) 97 02/18/19 06:28 30 Mechanical Ventilator 40 02/18/19 06:00 74 22 136/56 (82) 100 02/18/19 06:00 22 Mechanical Ventilator 40 02/18/19 05:36 178/78 02/18/19 05:36 178/78 02/18/19 05:36 178/78 02/18/19 05:30 88 23 166/92 (116) 100 02/18/19 05:01 78 30 40 02/18/19 05:00 23 Mechanical Ventilator 40 02/18/19 05:00 81 30 162/76 (104) 100 02/18/19 04:41 173/74 02/18/19 04:30 80 30 173/74 (107) 100 02/18/19 04:00 30 Mechanical Ventilator 40 02/18/19 04:00 Mechanical Ventilator Mechanical Ventilator Mechanical Ventilator 02/18/19 04:00 97.7 88 30 179/75 (109) 99 02/18/19 04:00 40 02/18/19 03:30 84 30 135/94 (108) 100 02/18/19 03:26 84 30 100 Mechanical Ventilator 40 02/18/19 03:16 64 30 98 Mechanical Ventilator 40 02/18/19 03:16 64 30 40 02/18/19 03:00 65 28 158/61 (93) 99 02/18/19 02:57 65 02/18/19 02:30 65 30 157/65 (95) 98 02/18/19 02:24 30 Mechanical Ventilator 40 02/18/19 02:00 64 30 150/62 (91) 98 02/18/19 01:30 64 30 147/52 (83) 98 02/18/19 01:12 30 Mechanical Ventilator 40 02/18/19 01:00 65 30 151/61 (91) 99 02/18/19 01:00 65 30 40 02/18/19 01:00 30 Mechanical Ventilator 40 02/18/19 00:30 67 30 151/61 (91) 97 02/18/19 00:00 Mechanical Ventilator Mechanical Ventilator Mechanical Ventilator 02/18/19 00:00 30 Mechanical Ventilator 40 02/18/19 00:00 98.0 67 30 153/60 (91) 98 02/18/19 00:00 40 02/17/19 23:33 147/57 02/17/19 23:33 147/57 02/17/19 23:30 65 30 147/57 (87) 99 02/17/19 23:25 65 30 99 Mechanical Ventilator 40 02/17/19 23:15 65 30 98 Mechanical Ventilator 40 02/17/19 23:15 65 30 40 02/17/19 23:00 67 30 148/56 (86) 99 02/17/19 23:00 30 Mechanical Ventilator 40 02/17/19 22:59 67 02/17/19 22:30 68 30 157/58 (91) 99 02/17/19 22:00 30 Mechanical Ventilator 40 02/17/19 22:00 80 18 177/76 (109) 100 02/17/19 21:39 154/62 02/17/19 21:30 70 30 154/62 (92) 98 02/17/19 21:09 77 31 40 02/17/19 21:00 76 30 151/67 (95) 100 02/17/19 21:00 30 Mechanical Ventilator 40 02/17/19 20:43 70 138/58 02/17/19 20:30 70 30 138/58 (84) 97 02/17/19 20:08 30 Mechanical Ventilator 40 02/17/19 20:00 40 02/17/19 20:00 Mechanical Ventilator Mechanical Ventilator Mechanical Ventilator 02/17/19 20:00 98.4 72 30 135/58 (83) 98 02/17/19 20:00 30 Mechanical Ventilator 40 02/17/19 19:30 72 30 134/58 (83) 98 02/17/19 19:24 71 30 99 Mechanical Ventilator 40 02/17/19 19:14 71 30 99 Mechanical Ventilator 40 02/17/19 19:14 71 02/17/19 19:13 71 30 40 02/17/19 19:00 71 30 134/57 (82) 98 02/17/19 19:00 30 Mechanical Ventilator 40 02/17/19 19:00 30 Mechanical Ventilator 40 02/17/19 18:30 85 30 136/60 (85) 99 02/17/19 18:30 82 28 162/73 (102) 100 02/17/19 18:00 83 30 162/73 (102) 98 02/17/19 18:00 30 Mechanical Ventilator 40 02/17/19 18:00 30 40 02/17/19 18:00 87 19 225/76 (125) 99 02/17/19 17:54 184/70 02/17/19 17:53 184/70 02/17/19 17:30 70 30 177/98 (124) 98 02/17/19 17:00 77 29 175/100 (125) 98 02/17/19 17:00 29 Mechanical Ventilator 40 02/17/19 17:00 30 40 02/17/19 16:49 69 30 40 02/17/19 16:30 70 18 151/67 (95) 99 02/17/19 16:00 72 02/17/19 16:00 98.5 72 30 157/73 (101) 98 02/17/19 16:00 30 Mechanical Ventilator 40 02/17/19 16:00 30 Mechanical Ventilator 40 02/17/19 16:00 40 02/17/19 16:00 Mechanical Ventilator Mechanical Ventilator Mechanical Ventilator 02/17/19 15:36 30 Mechanical Ventilator 40 02/17/19 15:30 84 18 200/171 (181) 99 02/17/19 15:16 85 30 100 Mechanical Ventilator 40 02/17/19 15:06 85 30 100 Mechanical Ventilator 40 02/17/19 15:04 85 30 40 02/17/19 15:00 83 30 197/159 (172) 100 02/17/19 15:00 26 Mechanical Ventilator 40 02/17/19 15:00 26 Mechanical Ventilator 40 02/17/19 14:45 81 27 205/85 (125) 100 02/17/19 14:30 90 30 230/139 (169) 99 02/17/19 14:20 30 Mechanical Ventilator 40 02/17/19 14:15 69 30 203/76 (118) 98 02/17/19 14:00 69 30 186/70 (108) 98 02/17/19 14:00 30 40 02/17/19 14:00 30 40 02/17/19 13:30 70 30 186/70 (108) 97 02/17/19 13:25 186/73 02/17/19 13:00 30 Mechanical Ventilator 40 02/17/19 13:00 30 Mechanical Ventilator 40 02/17/19 13:00 72 30 161/70 (100) 96 02/17/19 12:54 77 30 40 02/17/19 12:30 71 30 159/66 (97) 97 02/17/19 12:03 210/79 02/17/19 12:00 Mechanical Ventilator Mechanical Ventilator Mechanical Ventilator 02/17/19 12:00 98.4 72 30 182/83 (116) 98 02/17/19 12:00 30 Mechanical Ventilator 40 02/17/19 12:00 30 Mechanical Ventilator 40 02/17/19 12:00 73 02/17/19 12:00 40 02/17/19 11:40 83 30 100 Mechanical Ventilator 40 02/17/19 11:30 78 27 234/105 (148) 99 02/17/19 11:30 80 30 99 Mechanical Ventilator 40 02/17/19 11:26 206/85 02/17/19 11:26 206/85 02/17/19 11:00 24 Mechanical Ventilator 40 02/17/19 11:00 24 Mechanical Ventilator 40 02/17/19 11:00 71 30 205/86 (125) 99 02/17/19 10:48 78 31 40 02/17/19 10:30 81 24 162/109 (126) 100 02/17/19 10:00 78 27 173/80 (111) 99 02/17/19 10:00 27 Mechanical Ventilator 40 02/17/19 10:00 27 Mechanical Ventilator 40 02/17/19 09:30 66 29 159/65 (96) 97 02/17/19 09:00 30 Mechanical Ventilator 40 02/17/19 09:00 30 Mechanical Ventilator 40 02/17/19 09:00 66 30 155/62 (93) 97 02/17/19 08:56 71 30 40 02/17/19 08:30 70 30 149/59 (89) 98 02/17/19 08:16 69 154/69 02/17/19 08:15 69 154/61 02/17/19 08:11 30 Mechanical Ventilator 40 02/17/19 08:00 Mechanical Ventilator Mechanical Ventilator Mechanical Ventilator 02/17/19 08:00 40 02/17/19 08:00 30 Mechanical Ventilator 40 02/17/19 08:00 30 Mechanical Ventilator 40 02/17/19 08:00 98.5 69 30 154/68 (96) 97 02/17/19 07:30 69 30 157/61 (93) 97 02/17/19 07:12 72 30 100 Mechanical Ventilator 40 02/17/19 07:02 67 30 98 Mechanical Ventilator 40 02/17/19 07:00 72 30 162/71 (101) 98 02/17/19 07:00 30 Mechanical Ventilator 40 02/17/19 06:52 67 30 40 02/17/19 06:30 69 30 152/65 (94) 97 02/17/19 06:00 30 Mechanical Ventilator 40 02/17/19 06:00 70 30 144/59 (87) 97 02/17/19 05:33 162/74 02/17/19 05:33 162/74 02/17/19 05:30 72 30 162/70 (100) 100 02/17/19 05:26 74 30 40 02/17/19 05:00 79 25 188/87 (120) 99 02/17/19 05:00 30 Mechanical Ventilator 40 02/17/19 04:59 192/77 02/17/19 04:45 30 Mechanical Ventilator 40 02/17/19 04:30 85 30 192/84 (120) 99 02/17/19 04:30 30 Mechanical Ventilator 40 02/17/19 04:00 98.0 78 30 184/84 (117) 97 02/17/19 04:00 Mechanical Ventilator Mechanical Ventilator Mechanical Ventilator 02/17/19 04:00 30 Mechanical Ventilator 40 02/17/19 04:00 40 02/17/19 03:37 71 30 98 Mechanical Ventilator 40 02/17/19 03:31 71 02/17/19 03:30 72 30 172/72 (105) 99 02/17/19 03:27 70 30 97 Mechanical Ventilator 40 02/17/19 03:26 70 30 40 02/17/19 03:05 166/67 02/17/19 03:00 69 30 166/66 (99) 97 02/17/19 03:00 30 Mechanical Ventilator 40 02/17/19 02:30 70 30 167/67 (100) 97 02/17/19 02:15 30 Mechanical Ventilator 40 02/17/19 02:00 70 30 167/69 (101) 96 02/17/19 02:00 30 Mechanical Ventilator 40 02/17/19 01:45 30 Mechanical Ventilator 40 02/17/19 01:36 30 Mechanical Ventilator 40 02/17/19 01:30 72 30 171/73 (105) 97 02/17/19 01:10 69 30 40 02/17/19 01:00 30 Mechanical Ventilator 40 02/17/19 01:00 69 30 161/86 (111) 96 02/17/19 00:30 68 30 163/70 (101) 95 02/17/19 00:00 97.4 68 30 159/66 (97) 96 02/17/19 00:00 30 Mechanical Ventilator 40 02/17/19 00:00 40 02/17/19 00:00 Mechanical Ventilator Mechanical Ventilator Mechanical Ventilator 02/16/19 23:49 68 02/16/19 23:38 75 30 100 Mechanical Ventilator 40 02/16/19 23:36 168/68 02/16/19 23:36 168/68 02/16/19 23:30 68 30 168/68 (101) 98 02/16/19 23:28 67 30 97 Mechanical Ventilator 40 02/16/19 23:27 67 30 40 02/16/19 23:00 67 30 164/66 (98) 96 02/16/19 23:00 30 Mechanical Ventilator 40 02/16/19 22:55 167/47 02/16/19 22:30 68 30 167/67 (100) 96 02/16/19 22:27 30 Mechanical Ventilator 40 02/16/19 22:00 68 30 161/65 (97) 97 02/16/19 22:00 30 Mechanical Ventilator 40 02/16/19 21:30 70 30 160/64 (96) 98 02/16/19 21:17 30 40 02/16/19 21:00 76 30 163/65 (97) 99 02/16/19 21:00 30 Mechanical Ventilator 40 02/16/19 20:55 82 30 40 02/16/19 20:45 78 30 165/65 (98) 98 02/16/19 20:41 78 162/66 02/16/19 20:30 80 30 162/66 (98) 97 02/16/19 20:30 30 Mechanical Ventilator 40 02/16/19 20:15 20 Mechanical Ventilator 40 02/16/19 20:15 94 22 187/85 (119) 97 02/16/19 20:00 40 02/16/19 20:00 Mechanical Ventilator Mechanical Ventilator Mechanical Ventilator 02/16/19 20:00 22 Mechanical Ventilator 40 02/16/19 20:00 98.7 82 22 166/70 (102) 97 02/16/19 19:45 Mechanical Ventilator 40 02/16/19 19:45 85 18 168/78 (108) 96 02/16/19 19:30 79 27 155/64 (94) 99 02/16/19 19:30 27 Mechanical Ventilator 40 02/16/19 19:26 82 02/16/19 19:25 74 30 100 Mechanical Ventilator 40 02/16/19 19:16 76 30 100 Mechanical Ventilator 40 02/16/19 19:15 76 30 40 02/16/19 19:00 77 30 142/64 (90) 97 02/16/19 19:00 30 Mechanical Ventilator 02/16/19 19:00 30 Mechanical Ventilator 02/16/19 18:30 76 30 158/62 (94) 97 02/16/19 18:00 76 30 158/62 (94) 97 02/16/19 18:00 30 Mechanical Ventilator 02/16/19 18:00 30 Mechanical Ventilator 02/16/19 17:30 134/63 02/16/19 17:30 98.4 75 30 136/62 (86) 97 02/16/19 17:29 134/63 02/16/19 17:05 75 30 50 02/16/19 17:00 98.4 72 30 132/76 (94) 97 02/16/19 17:00 30 Mechanical Ventilator 02/16/19 17:00 30 Mechanical Ventilator 02/16/19 16:30 75 30 158/74 (102) 97 02/16/19 16:00 72 02/16/19 16:00 40 02/16/19 16:00 Mechanical Ventilator Mechanical Ventilator Mechanical Ventilator 02/16/19 16:00 98.4 72 30 136/62 (86) 95 02/16/19 16:00 30 Mechanical Ventilator 02/16/19 16:00 30 Mechanical Ventilator Intake and Output 02/17/19 02/18/19 18:59 06:59 Intake Total 2702.5 ml 2538.5 ml Output Total 2550 ml 1990 ml Balance 152.5 ml 548.5 ml Free Water 230 ml IV Total 1956.5 ml 1878.5 ml Tube Feeding 516 ml 430 ml Other 230 ml Output Urine Total 2550 ml 1990 ml # Bowel Movements 3 2 Labs Test 02/16/19 03:30 02/16/19 05:05 02/16/19 08:08 02/17/19 05:00 Stool Occult Blood Negative (NEGATIVE) White Blood Count 7.8 K/UL (4.8-10.8) 6.0 K/UL (4.8-10.8) Red Blood Count 3.26 M/UL (4.70-6.10) 3.11 M/UL (4.70-6.10) Hemoglobin 8.9 G/DL (14.2-18.0) 8.7 G/DL (14.2-18.0) Hematocrit 27.8 % (42.0-52.0) 27.1 % (42.0-52.0) Mean Corpuscular Volume 85 FL (80-99) 87 FL (80-99) Mean Corpuscular Hemoglobin 27.5 PG (27.0-31.0) 27.9 PG (27.0-31.0) Mean Corpuscular Hemoglobin Concent 32.1 G/DL (32.0-36.0) 32.0 G/DL (32.0-36.0) Red Cell Distribution Width 18.1 % (11.6-14.8) 17.6 % (11.6-14.8) Platelet Count 253 K/UL (150-450) 245 K/UL (150-450) Mean Platelet Volume 6.4 FL (6.5-10.1) 5.9 FL (6.5-10.1) Neutrophils (%) (Auto) % (45.0-75.0) 81.3 % (45.0-75.0) Lymphocytes (%) (Auto) % (20.0-45.0) 9.6 % (20.0-45.0) Monocytes (%) (Auto) % (1.0-10.0) 8.4 % (1.0-10.0) Eosinophils (%) (Auto) % (0.0-3.0) 0.4 % (0.0-3.0) Basophils (%) (Auto) % (0.0-2.0) 0.4 % (0.0-2.0) Sodium Level 148 MMOL/L (136-145) 142 MMOL/L (136-145) Potassium Level 5.8 MMOL/L (3.5-5.1) 4.3 MMOL/L (3.5-5.1) Chloride Level 114 MMOL/L (98-107) 108 MMOL/L (98-107) Carbon Dioxide Level 28 MMOL/L (21-32) 25 MMOL/L (21-32) Anion Gap 6 mmol/L (5-15) 9 mmol/L (5-15) Blood Urea Nitrogen 71 mg/dL (7-18) 67 mg/dL (7-18) Creatinine 2.6 MG/DL (0.55-1.30) 2.5 MG/DL (0.55-1.30) Estimat Glomerular Filtration Rate 25.4 mL/min (>60) 26.6 mL/min (>60) Glucose Level 269 MG/DL (74-106) 308 MG/DL (74-106) Uric Acid 4.8 MG/DL (2.6-7.2) 3.8 MG/DL (2.6-7.2) Calcium Level 7.8 MG/DL (8.5-10.1) 7.9 MG/DL (8.5-10.1) Phosphorus Level 4.6 MG/DL (2.5-4.9) 3.7 MG/DL (2.5-4.9) Magnesium Level 2.9 MG/DL (1.8-2.4) 2.4 MG/DL (1.8-2.4) Total Bilirubin 0.2 MG/DL (0.2-1.0) 0.2 MG/DL (0.2-1.0) Aspartate Amino Transf (AST/SGOT) 32 U/L (15-37) 36 U/L (15-37) Alanine Aminotransferase (ALT/SGPT) 51 U/L (12-78) 46 U/L (12-78) Alkaline Phosphatase 157 U/L (46-116) 139 U/L (46-116) C-Reactive Protein, Quantitative 2.2 mg/dL (0.00-0.90) 1.7 mg/dL (0.00-0.90) Pro-B-Type Natriuretic Peptide 5575 pg/mL (0-125) 5368 pg/mL (0-125) Total Protein 5.7 G/DL (6.4-8.2) 5.2 G/DL (6.4-8.2) Albumin 2.0 G/DL (3.4-5.0) 1.9 G/DL (3.4-5.0) Globulin 3.7 g/dL 3.3 g/dL Albumin/Globulin Ratio 0.5 (1.0-2.7) 0.6 (1.0-2.7) Random Vancomycin Level 11.4 ug/mL Arterial Blood pH 7.244 (7.350-7.450) Arterial Blood Partial Pressure CO2 59.1 mmHg (35.0-45.0) Arterial Blood Partial Pressure O2 63.4 mmHg (75.0-100.0) Arterial Blood HCO3 25.0 mmol/L (22.0-26.0) Arterial Blood Oxygen Saturation 87.0 % (95-100) Arterial Blood Base Excess -3.0 (-2-2) Benny Test Positive Test 02/18/19 05:30 02/18/19 08:30 White Blood Count 8.1 K/UL (4.8-10.8) Red Blood Count 3.68 M/UL (4.70-6.10) Hemoglobin 10.3 G/DL (14.2-18.0) Hematocrit 31.8 % (42.0-52.0) Mean Corpuscular Volume 87 FL (80-99) Mean Corpuscular Hemoglobin 28.1 PG (27.0-31.0) Mean Corpuscular Hemoglobin Concent 32.4 G/DL (32.0-36.0) Red Cell Distribution Width 17.4 % (11.6-14.8) Platelet Count 310 K/UL (150-450) Mean Platelet Volume 6.4 FL (6.5-10.1) Neutrophils (%) (Auto) 83.5 % (45.0-75.0) Lymphocytes (%) (Auto) 9.2 % (20.0-45.0) Monocytes (%) (Auto) 6.7 % (1.0-10.0) Eosinophils (%) (Auto) 0.2 % (0.0-3.0) Basophils (%) (Auto) 0.3 % (0.0-2.0) Sodium Level 142 MMOL/L (136-145) Potassium Level 4.3 MMOL/L (3.5-5.1) Chloride Level 107 MMOL/L (98-107) Carbon Dioxide Level 25 MMOL/L (21-32) Anion Gap 10 mmol/L (5-15) Blood Urea Nitrogen 62 mg/dL (7-18) Creatinine 2.4 MG/DL (0.55-1.30) Estimat Glomerular Filtration Rate 27.8 mL/min (>60) Glucose Level 216 MG/DL (74-106) Uric Acid 3.0 MG/DL (2.6-7.2) Calcium Level 8.5 MG/DL (8.5-10.1) Phosphorus Level 4.2 MG/DL (2.5-4.9) Magnesium Level 2.2 MG/DL (1.8-2.4) Total Bilirubin 0.4 MG/DL (0.2-1.0) Aspartate Amino Transf (AST/SGOT) 47 U/L (15-37) Alanine Aminotransferase (ALT/SGPT) 58 U/L (12-78) Alkaline Phosphatase 161 U/L (46-116) Ammonia 17 umol/L (11-32) Troponin I 0.836 ng/mL (0.000-0.056) C-Reactive Protein, Quantitative 1.4 mg/dL (0.00-0.90) Pro-B-Type Natriuretic Peptide 4140 pg/mL (0-125) Total Protein 6.1 G/DL (6.4-8.2) Albumin 2.2 G/DL (3.4-5.0) Globulin 3.9 g/dL Albumin/Globulin Ratio 0.6 (1.0-2.7) Random Vancomycin Level 9.0 ug/mL Arterial Blood pH 7.494 (7.350-7.450) Arterial Blood Partial Pressure CO2 29.3 mmHg (35.0-45.0) Arterial Blood Partial Pressure O2 82.7 mmHg (75.0-100.0) Arterial Blood HCO3 22.0 mmol/L (22.0-26.0) Arterial Blood Oxygen Saturation 95.1 % (95-100) Arterial Blood Base Excess -0.7 (-2-2) Benny Test Positive Height (Feet): 6 Height (Inches): 0.00 Weight (Pounds): 274 Objective PHYSICAL EXAMINATION: GENERAL: NAD VITAL SIGNS: Have been reviewed. HEAD AND NECK: Shows no JVD. NG+ TRACH+ LUNGS: Coarse rhonchi. CARDIOVASCULAR: Shows regular S1 and S2 with no gallop or murmur. ABDOMEN: Soft. EXTREMITIES: No pitting edema. Chan Hernandez MD Feb 18, 2019 15:44
--- NOTE | 2019-02-18 15:50 | General Progress Note ---
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 (+) BM Objective Last 24 Hour Vital Signs Date Time Temp Pulse Resp B/P (MAP) Pulse Ox O2 Delivery O2 Flow Rate FiO2 02/18/19 15:24 68 30 100 Mechanical Ventilator 40 02/18/19 15:10 69 25 99 Mechanical Ventilator 40 02/18/19 15:10 69 30 40 02/18/19 15:00 30 Mechanical Ventilator 40 02/18/19 15:00 30 Mechanical Ventilator 40 02/18/19 15:00 71 30 134/58 (83) 100 02/18/19 14:42 143/66 02/18/19 14:30 71 30 143/66 (91) 100 02/18/19 14:00 71 30 136/57 (83) 100 02/18/19 14:00 30 Mechanical Ventilator 40 02/18/19 14:00 30 Mechanical Ventilator 40 02/18/19 13:30 71 29 137/58 (84) 99 02/18/19 13:22 75 30 40 02/18/19 13:00 30 Mechanical Ventilator 40 02/18/19 13:00 30 Mechanical Ventilator 40 02/18/19 13:00 76 30 156/61 (92) 100 02/18/19 12:30 78 30 150/72 (98) 100 02/18/19 12:16 30 Mechanical Ventilator 40 02/18/19 12:00 Mechanical Ventilator Mechanical Ventilator 02/18/19 12:00 97.6 82 30 157/71 (99) 100 02/18/19 12:00 30 Mechanical Ventilator 40 02/18/19 12:00 77 02/18/19 12:00 40 02/18/19 11:30 79 30 174/102 (126) 100 02/18/19 11:28 159/69 02/18/19 11:28 159/69 02/18/19 11:12 80 24 40 02/18/19 11:10 80 24 100 Mechanical Ventilator 40 02/18/19 11:00 77 30 167/70 (102) 100 02/18/19 11:00 30 Mechanical Ventilator 40 02/18/19 11:00 30 Mechanical Ventilator 40 02/18/19 11:00 80 24 99 Mechanical Ventilator 40 02/18/19 10:30 67 30 140/57 (84) 100 02/18/19 10:00 74 30 157/66 (96) 100 02/18/19 10:00 30 Mechanical Ventilator 40 02/18/19 10:00 30 Mechanical Ventilator 40 02/18/19 09:30 73 30 147/62 (90) 100 02/18/19 09:00 81 30 92/65 (74) 100 02/18/19 09:00 30 Mechanical Ventilator 40 02/18/19 09:00 30 40 02/18/19 08:55 73 134/56 02/18/19 08:54 74 134/56 02/18/19 08:49 88 30 40 02/18/19 08:30 73 30 134/56 (82) 98 02/18/19 08:00 75 02/18/19 08:00 97.4 75 30 139/57 (84) 100 02/18/19 08:00 30 Mechanical Ventilator 40 02/18/19 08:00 30 Mechanical Ventilator 40 02/18/19 08:00 Mechanical Ventilator Mechanical Ventilator 02/18/19 08:00 40 02/18/19 07:30 87 30 162/79 (106) 100 02/18/19 07:00 69 30 124/51 (75) 98 02/18/19 07:00 30 Mechanical Ventilator 40 02/18/19 06:40 71 30 100 Mechanical Ventilator 40 02/18/19 06:37 79 30 40 02/18/19 06:33 71 30 99 Mechanical Ventilator 40 02/18/19 06:30 71 27 124/51 (75) 97 02/18/19 06:28 30 Mechanical Ventilator 40 02/18/19 06:00 74 22 136/56 (82) 100 02/18/19 06:00 22 Mechanical Ventilator 40 02/18/19 05:36 178/78 02/18/19 05:36 178/78 02/18/19 05:36 [id number] 02/18/19 05:30 88 23 166/92 (116) 100 02/18/19 05:01 78 30 40 02/18/19 05:00 23 Mechanical Ventilator 40 02/18/19 05:00 81 30 162/76 (104) 100 02/18/19 04:41 173/74 02/18/19 04:30 80 30 173/74 (107) 100 02/18/19 04:00 30 Mechanical Ventilator 40 02/18/19 04:00 Mechanical Ventilator Mechanical Ventilator Mechanical Ventilator 02/18/19 04:00 97.7 88 30 179/75 (109) 99 02/18/19 04:00 40 02/18/19 03:30 84 30 135/94 (108) 100 02/18/19 03:26 84 30 100 Mechanical Ventilator 40 02/18/19 03:16 64 30 98 Mechanical Ventilator 40 02/18/19 03:16 64 30 40 02/18/19 03:00 65 28 158/61 (93) 99 02/18/19 02:57 65 02/18/19 02:30 65 30 157/65 (95) 98 02/18/19 02:24 30 Mechanical Ventilator 40 02/18/19 02:00 64 30 150/62 (91) 98 02/18/19 01:30 64 30 147/52 (83) 98 02/18/19 01:12 30 Mechanical Ventilator 40 02/18/19 01:00 65 30 151/61 (91) 99 02/18/19 01:00 65 30 40 02/18/19 01:00 30 Mechanical Ventilator 40 02/18/19 00:30 67 30 151/61 (91) 97 02/18/19 00:00 Mechanical Ventilator Mechanical Ventilator Mechanical Ventilator 02/18/19 00:00 30 Mechanical Ventilator 40 02/18/19 00:00 98.0 67 30 153/60 (91) 98 02/18/19 00:00 40 02/17/19 23:33 147/57 02/17/19 23:33 147/57 02/17/19 23:30 65 30 147/57 (87) 99 02/17/19 23:25 65 30 99 Mechanical Ventilator 40 02/17/19 23:15 65 30 98 Mechanical Ventilator 40 02/17/19 23:15 65 30 40 02/17/19 23:00 67 30 148/56 (86) 99 02/17/19 23:00 30 Mechanical Ventilator 40 02/17/19 22:59 67 02/17/19 22:30 68 30 157/58 (91) 99 02/17/19 22:00 30 Mechanical Ventilator 40 02/17/19 22:00 80 18 177/76 (109) 100 02/17/19 21:39 154/62 02/17/19 21:30 70 30 154/62 (92) 98 02/17/19 21:09 77 31 40 02/17/19 21:00 76 30 151/67 (95) 100 02/17/19 21:00 30 Mechanical Ventilator 40 02/17/19 20:43 70 138/58 02/17/19 20:30 70 30 138/58 (84) 97 02/17/19 20:08 30 Mechanical Ventilator 40 02/17/19 20:00 40 02/17/19 20:00 Mechanical Ventilator Mechanical Ventilator Mechanical Ventilator 02/17/19 20:00 98.4 72 30 135/58 (83) 98 02/17/19 20:00 30 Mechanical Ventilator 40 02/17/19 19:30 72 30 134/58 (83) 98 02/17/19 19:24 71 30 99 Mechanical Ventilator 40 02/17/19 19:14 71 30 99 Mechanical Ventilator 40 02/17/19 19:14 71 02/17/19 19:13 71 30 40 02/17/19 19:00 71 30 134/57 (82) 98 02/17/19 19:00 30 Mechanical Ventilator 40 02/17/19 19:00 30 Mechanical Ventilator 40 02/17/19 18:30 85 30 136/60 (85) 99 02/17/19 18:30 82 28 162/73 (102) 100 02/17/19 18:00 83 30 162/73 (102) 98 02/17/19 18:00 30 Mechanical Ventilator 40 02/17/19 18:00 30 40 02/17/19 18:00 87 19 225/76 (125) 99 02/17/19 17:54 184/70 02/17/19 17:53 184/70 02/17/19 17:30 70 30 177/98 (124) 98 02/17/19 17:00 77 29 175/100 (125) 98 02/17/19 17:00 29 Mechanical Ventilator 40 02/17/19 17:00 30 40 02/17/19 16:49 69 30 40 02/17/19 16:30 70 18 151/67 (95) 99 02/17/19 16:00 72 02/17/19 16:00 98.5 72 30 157/73 (101) 98 02/17/19 16:00 30 Mechanical Ventilator 40 02/17/19 16:00 30 Mechanical Ventilator 40 02/17/19 16:00 40 02/17/19 16:00 Mechanical Ventilator Mechanical Ventilator Mechanical Ventilator Intake and Output 02/17/19 02/18/19 19:00 07:00 Intake Total 2758.5 ml 2438.5 ml Output Total 2550 ml 1940 ml Balance 208.5 ml 498.5 ml Free Water 230 ml IV Total 2012.5 ml 1778.5 ml Tube Feeding 516 ml 430 ml Other 230 ml Output Urine Total 2550 ml 1940 ml # Bowel Movements 3 2 Laboratory Tests 02/18/19 05:30: White Blood Count 8.1, Red Blood Count 3.68L, Hemoglobin 10.3L, Hematocrit 31.8L , Mean Corpuscular Volume 87, Mean Corpuscular Hemoglobin 28.1, Mean Corpuscular Hemoglobin Concent 32.4, Red Cell Distribution Width 17.4H, Platelet Count 310, Mean Platelet Volume 6.4L, Neutrophils (%) (Auto) 83.5H, Lymphocytes (%) (Auto) 9.2L, Monocytes (%) (Auto) 6.7, Eosinophils (%) (Auto) 0.2, Basophils (%) (Auto) 0.3, Sodium Level 142, Potassium Level 4.3, Chloride Level 107, Carbon Dioxide Level 25, Anion Gap 10, Blood Urea Nitrogen 62H, Creatinine 2.4H, Estimat Glomerular Filtration Rate 27.8, Glucose Level 216H, Uric Acid 3.0, Calcium Level 8.5, Phosphorus Level 4.2, Magnesium Level 2.2, Total Bilirubin 0.4, Aspartate Amino Transf (AST/SGOT) 47H, Alanine Aminotransferase (ALT/SGPT) 58, Alkaline Phosphatase 161H, Ammonia 17, Troponin I 0.836H, C-Reactive Protein, Quantitative 1.4H, Pro-B-Type Natriuretic Peptide 4140H, Total Protein 6.1L, Albumin 2.2L, Globulin 3.9, Albumin/Globulin Ratio 0.6L, Random Vancomycin Level 9.0 02/18/19 08:30: Arterial Blood pH 7.494H, Arterial Blood Partial Pressure CO2 29.3L, Arterial Blood Partial Pressure O2 82.7, Arterial Blood HCO3 22.0, Arterial Blood Oxygen Saturation 95.1, Arterial Blood Base Excess -0.7, Benny Test Positive Height (Feet): 6 Height (Inches): 0.00 Weight (Pounds): 274 Objective unresponsive on vent (+) ETT and OGT coarse BS RR abd distended , soft no edema obtunded Genaro Mobley MD Feb 18, 2019 15:50
--- NOTE | 2019-02-18 16:00 | NUR ---
NURSE NOTES: Patient sedated to Rass score of -2 at this time on fentanyl drip at 200mcg/hr (20mL/hr) and Versed at 10mcg/hr (20mL/hr). Patient is intubated with 7.5cm endotracheal tube with 25cm at the lip line. Ventilator setting remain AC 30, tidal volume 550, FiO2 40%, and PEEP 5. Patient tolerating setting with oxygen saturation of 99-100% and respiratory rate of 30. OGT patent, re-verified with auscultation with 30mL residual and running tube feeding of Nepro at 43mL/hr. Patient has a smith for urine retention that is putting out 75-125mL/hr of straw yellow urine. Ritesh catheter with pigtail patent, oozing serosanguineous fluid, and running Versed drip and fentanyl drip. Patient's left wrist 20G PIV is saline locked. IV fluid D5W has been discontinued. Patient continues to have generalized edema non-pitting of the upper extremities and abdomen and pitting +2 edema of the legs and feet. Patient has swelling of the sclera on the lower section of his eyeball. SCDs not in place at this time due to swelling of the legs. Legs elevated on pillows with heels floated at this time. Arms floated. Upper lobes have auditory rhonchi on inspiration and expiration and diminished lung sounds of the lower lobes. Patient remains on bilateral soft wrist restraints. When patient becomes more alert, he starts reaching for the endotracheal tube. Restraints in place for safety and impulsivity. Bilateral peripheral pulses intact. Skin intact on bilateral wrists. Patient has right elbow non-blanchable redness as previously noted. Patient bed in low position with bed alarm on and call light in reach. Oral care and repositioning performed at this time.
--- NOTE | 2019-02-18 18:00 | NUR ---
NURSE NOTES: Blood pressure 136/49, HR 82, RR 30, SpO2 99%. Patient RASS score -1 at this time. Patient restless. Patient just cleaned at this time. Patient moving limbs every few minutes trying to move around in the bed and trying to reach for ETT tube. Will continue to monitor and titrate versed and fentanyl drip per protocol. Fentanyl drip running at 200mcg/hr (20mL/hr) and Versed drip running at 10mcg/hr (20mL/hr). Bed in low position with bed alarm on. Oral care, repositioning, perineal care, and bed bath performed at this time.
--- NOTE | 2019-02-18 19:30 | NUR ---
HAND-OFF: Report given to TESSA Najera. Patient to be weaned in the morning. Feeding to be turned off at 4am and sedation titrated to reach a RASS of [address] Yan. Orders have been placed. Endorsed to follow up. Patient still has generalized anasarca including swelling of the sclera of the lower part of the eye. Dr Liao, Nelsy HENRIQUEZ, and Dr Mcdonald have all been made aware of the swelling of the eye and the generalized edema. Dr Costa has been made aware of the serosanquinous fluid oozing from the paulo catheter insertion site. He reported that it was a result of the edema and he is aware.
--- NOTE | 2019-02-18 20:00 | NUR ---
NURSE NOTES: Patient received from Suze Tang RN. Patients is sedated with versed and Fentanyl with RASS score of -2 at this time. Patient is intubated with tube size: 7.5/25cm at the lower lip. AC 30m, 550tv, 40% FiO2 and peep of 5. Spo2 at 98%. BP is 140/78, HR is 78 SR, 99.1F (axillary), FLACC score of 0/10. NAD at this time. Patient has L femoral João Catheter with T-port IV access, dressing is dry and intact, newly changed today. L hand 20G IV dry and intact. Nepro at 43ml/hr via OGT. 30ml residual, flushed with 30ml and prosource given. Patient has generalized edema all over the body. Scrotum is swollen. MDs aware.
[2019-02-18] MEDS: Dyna-Hex 2% Top Sol 2oz TOPIC SCH (20:12)
[2019-02-18] MEDS: Bisacodyl EC 5mg tab ORAL PRN (20:13)
[2019-02-18] MEDS: Miralax 17gm pkt ORAL SCH (20:13)
[2019-02-18] MEDS: Maxitrol Opth Oint 3.5gm BOTH EYES SCH (20:14)
[2019-02-18] MEDS: Enoxaparin 40mg Inj SUBQ SCH (20:15)
--- NOTE | 2019-02-18 20:30 | NUR ---
NURSE NOTES: Glucose noted to be 187, sliding scale coverage provided including scheduled 10units given. Abdomen noted to be distended, GI MD is aware. NO BM. Miralax given as scheduled. Patient was suctioned and repositioned. Oral care was also provided. Pulses noted. Patient is arousable to tactile stimulus, RASS maintained at -2.
--- NOTE | 2019-02-18 22:00 | NUR ---
NURSE NOTES: Repositioned patient Oral care and suctioned provided RASS SCORE maintained at -2 IV lines remains patent and intact HR 67 SR, 131/57, Spo2 97%, RR 30. NAD at this time, will continue to monitor.
--- NOTE | 2019-02-18 23:30 | NUR ---
NURSE NOTES: New Versed gtt bag hung. Patient maintained at RASS SCORE of -2 Vitals have remained stable. No fevers.
[2019-02-19] VITALS (42 sets, daily range): BP systolic 125–189; BP diastolic 50–147
--- NOTE | 2019-02-19 | NUR ---
NURSE NOTES: Patient repositioned and given oral care No fevers RASS SCORE maintained at -2 BP remains stable HR remains SR SPO2 98% RR 30 Arousable with tactile stimulus No acute distress at this time.
[2019-02-19] MEDS: NovoLOG Insulin Flexpen SUBQ SCH ×12 (00:37→20:42)
--- NOTE | 2019-02-19 02:00 | NUR ---
NURSE NOTES: 1 abdirashid gomez BM Patient cleaned and repositioned New dry linen applied Central line dressing changed
[2019-02-19] MEDS: Albuterol/Ipratropium 3ml neb HHN SCH ×5 (03:21→19:12)
--- NOTE | 2019-02-19 04:00 | NUR ---
NURSE NOTES: Feeds placed on hold for AM weaning trials. Rectal tube inserted for Pasty/watery diarrhea Patient cleaned and repositioned Oral care given Pericare provided
[2019-02-19] MEDS: Piperacillin/Tazobactam 3.375 GM in NS 110 ML IVPB SCH ×2 (05:00→17:33)
[2019-02-19] MEDS: Midazolam for drip 50 MG in NS 90 ML IV SCH (05:00)
[2019-02-19] MEDS: fentaNYL Citrate 2,500 MCG in NS 200 ML IV SCH (05:00)
--- NOTE | 2019-02-19 05:00 | NUR ---
NURSE NOTES: New bag of Versed and Fentanyl gtt hung Sedation titrated down for morning wean trials RASS score now at -1, for weaning trials this morning Rectal tube stool draining well, no leaks observed
[2019-02-19] MEDS: HydrALAZINE 50mg tab NG SCH ×3 (05:01→21:39)
[2019-02-19] MEDS: Lacri-Lube Opth Oint 3.5gm BOTH EYES SCH ×4 (05:02→20:38)
--- NOTE | 2019-02-19 05:40 | NUR ---
Pt. remains intubated with 7.5ett secured at the 25 cm richa. Suctioned scant amount of blood tinge secretions. Settings are as ff: AC30/Vt 550/PEEP 5/ Fio2 .40. Patient remains on high level of sedation. All vent settings and alarms have been check. Will continur to monitor closely.
--- NOTE | 2019-02-19 06:00 | NUR ---
NURSE NOTES: RASS SCORE maintained at -1 for morning weaning trial Patient turned and repositioned Easily arousable to tactile stimulus VS remain stable No fevers overnight Will continue to monitor closely.
--- NOTE | 2019-02-19 06:23 | General Progress Note ---
Assessment/Plan Problem List: (1) ISH (acute kidney injury) ICD Codes: N17.9 - Acute kidney failure, unspecified SNOMED: 15104648 (2) Uncontrolled type 2 diabetes mellitus with chronic kidney disease ICD Codes: E11.22 - Type 2 diabetes mellitus with diabetic chronic kidney disease; E11.65 - Type 2 diabetes mellitus with hyperglycemia SNOMED: 96212029, 621254536, 248012140 (3) HIV disease ICD Codes: B20 - Human immunodeficiency virus [HIV] disease SNOMED: 54960927 (4) Respiratory distress ICD Codes: R06.03 - Acute respiratory distress SNOMED: 574683967 Status: unchanged Assessment/Plan: - continue Novolog 10 units every 4 hours - continue Novolog sliding scale resistant scale every 4 hours Subjective ROS Limited/Unobtainable: Yes Allergies: Coded Allergies: No Known Allergies (Unverified , 02/05/13) Subjective events noted remained intubated and sedated in ICU Item Value Date Time Bedside Blood Glucose 195 mg/dl H 02/19/19 0503 Bedside Blood Glucose 197 mg/dl H 02/19/19 0038 Bedside Blood Glucose 187 mg/dl H 02/18/19 2017 Bedside Blood Glucose 182 mg/dl H 02/18/19 1830 Bedside Blood Glucose 117 mg/dl 02/18/19 1300 Bedside Blood Glucose 169 mg/dl H 02/18/19 0858 Objective Last 24 Hour Vital Signs Date Time Temp Pulse Resp B/P (MAP) Pulse Ox O2 Delivery O2 Flow Rate FiO2 02/19/19 06:00 72 30 133/51 (78) 95 02/19/19 06:00 30 Mechanical Ventilator 40 02/19/19 06:00 30 Mechanical Ventilator 40 02/19/19 05:30 79 30 143/61 (88) 99 02/19/19 05:18 79 30 40 40 02/19/19 05:01 137/109 02/19/19 05:01 137/109 02/19/19 05:01 137/109 02/19/19 05:00 30 Mechanical Ventilator 40 02/19/19 05:00 30 Mechanical Ventilator 40 02/19/19 05:00 77 30 142/62 (88) 100 02/19/19 04:30 88 30 137/109 (118) 97 02/19/19 04:00 40 02/19/19 04:00 Mechanical Ventilator 02/19/19 04:00 75 02/19/19 04:00 99.2 85 30 157/90 (112) 94 02/19/19 04:00 30 Mechanical Ventilator 40 02/19/19 04:00 30 Mechanical Ventilator 40 02/19/19 03:30 69 30 129/51 (77) 98 02/19/19 03:29 69 30 100 Mechanical Ventilator 40 02/19/19 03:20 69 30 96 Mechanical Ventilator 40 02/19/19 03:19 69 30 40 40 02/19/19 03:00 30 Mechanical Ventilator 40 02/19/19 03:00 30 Mechanical Ventilator 40 02/19/19 03:00 70 30 133/54 (80) 98 02/19/19 02:30 75 30 142/62 (88) 99 02/19/19 02:00 30 Endotracheal Tube 40 02/19/19 02:00 30 40 02/19/19 02:00 82 30 148/75 (99) 100 02/19/19 01:30 67 30 128/52 (77) 95 02/19/19 01:00 67 30 125/50 (75) 95 02/19/19 01:00 30 40 02/19/19 01:00 30 40 02/19/19 00:55 67 30 40 40 02/19/19 00:30 69 30 137/60 (85) 96 02/19/19 00:00 69 02/19/19 00:00 Mechanical Ventilator 02/19/19 00:00 40 02/19/19 00:00 99.5 76 30 148/61 (90) 99 02/19/19 00:00 30 Mechanical Ventilator 40 02/19/19 00:00 30 Mechanical Ventilator 40 02/18/19 23:30 71 30 139/63 (88) 96 02/18/19 23:22 30 40 02/18/19 23:21 131/57 02/18/19 23:21 131/57 02/18/19 23:20 72 30 100 Mechanical Ventilator 40 02/18/19 23:11 67 30 100 Mechanical Ventilator 40 02/18/19 23:10 67 30 40 40 02/18/19 23:00 69 30 131/57 (81) 98 02/18/19 23:00 30 Mechanical Ventilator 40 02/18/19 23:00 30 Mechanical Ventilator 40 02/18/19 22:30 71 30 134/66 (88) 97 02/18/19 22:00 30 Mechanical Ventilator 40 02/18/19 22:00 30 Mechanical Ventilator 40 02/18/19 22:00 69 30 143/66 (91) 98 02/18/19 21:30 143/67 02/18/19 21:30 74 30 151/86 (107) 97 02/18/19 21:15 74 30 40 40 02/18/19 21:00 77 28 143/67 (92) 97 02/18/19 21:00 30 Mechanical Ventilator 40 02/18/19 21:00 30 Mechanical Ventilator 40 02/18/19 20:30 84 22 148/73 (98) 98 02/18/19 20:13 82 144/59 02/18/19 20:00 Mechanical Ventilator 02/18/19 20:00 30 Mechanical Ventilator 40 02/18/19 20:00 30 Mechanical Ventilator 40 02/18/19 20:00 78 02/18/19 20:00 99.1 77 23 132/56 (81) 98 02/18/19 20:00 40 02/18/19 19:30 84 22 143/64 (90) 98 02/18/19 19:02 82 30 100 Mechanical Ventilator 40 02/18/19 19:01 85 30 100 Mechanical Ventilator 40 02/18/19 19:00 88 30 144/59 (87) 100 02/18/19 19:00 30 Mechanical Ventilator 40 02/18/19 19:00 30 Mechanical Ventilator 40 02/18/19 18:59 85 30 40 40 02/18/19 18:33 149/61 02/18/19 18:33 149/61 02/18/19 18:32 30 Mechanical Ventilator 40 02/18/19 18:30 80 29 147/59 (88) 100 02/18/19 18:00 79 29 136/49 (78) 98 02/18/19 18:00 30 Mechanical Ventilator 40 02/18/19 18:00 30 Mechanical Ventilator 40 02/18/19 17:30 84 27 161/72 (101) 98 02/18/19 17:27 88 30 40 02/18/19 17:00 21 Mechanical Ventilator 40 02/18/19 17:00 22 Mechanical Ventilator 40 02/18/19 17:00 75 21 135/58 (83) 99 02/18/19 16:30 69 26 130/54 (79) 99 02/18/19 16:00 98.5 72 30 138/62 (87) 100 02/18/19 16:00 40 02/18/19 16:00 22 Mechanical Ventilator 40 02/18/19 16:00 22 Mechanical Ventilator 40 02/18/19 16:00 72 02/18/19 16:00 Mechanical Ventilator Mechanical Ventilator 02/18/19 15:51 30 Mechanical Ventilator 40 02/18/19 15:30 70 30 131/63 (85) 100 02/18/19 15:24 68 30 100 Mechanical Ventilator 40 02/18/19 15:10 69 25 99 Mechanical Ventilator 40 02/18/19 15:10 69 30 40 02/18/19 15:00 30 Mechanical Ventilator 40 02/18/19 15:00 30 Mechanical Ventilator 40 02/18/19 15:00 71 30 134/58 (83) 100 02/18/19 14:42 143/66 02/18/19 14:30 71 30 143/66 (91) 100 02/18/19 14:00 71 30 136/57 (83) 100 02/18/19 14:00 30 Mechanical Ventilator 40 02/18/19 14:00 30 Mechanical Ventilator 40 02/18/19 13:30 71 29 137/58 (84) 99 02/18/19 13:22 75 30 40 02/18/19 13:00 30 Mechanical Ventilator 40 02/18/19 13:00 30 Mechanical Ventilator 40 02/18/19 13:00 76 30 156/61 (92) 100 02/18/19 12:30 78 30 150/72 (98) 100 02/18/19 12:16 30 Mechanical Ventilator 40 02/18/19 12:00 Mechanical Ventilator Mechanical Ventilator 02/18/19 12:00 97.6 82 30 157/71 (99) 100 02/18/19 12:00 30 Mechanical Ventilator 40 02/18/19 12:00 77 02/18/19 12:00 40 02/18/19 11:30 79 30 174/102 (126) 100 02/18/19 11:28 159/69 02/18/19 11:28 159/69 02/18/19 11:12 80 24 40 02/18/19 11:10 80 24 100 Mechanical Ventilator 40 02/18/19 11:00 77 30 167/70 (102) 100 02/18/19 11:00 30 Mechanical Ventilator 40 02/18/19 11:00 30 Mechanical Ventilator 40 02/18/19 11:00 80 24 99 Mechanical Ventilator 40 02/18/19 10:30 67 30 140/57 (84) 100 02/18/19 10:00 74 30 157/66 (96) 100 02/18/19 10:00 30 Mechanical Ventilator 40 02/18/19 10:00 30 Mechanical Ventilator 40 02/18/19 09:30 73 30 147/62 (90) 100 02/18/19 09:00 81 30 92/65 (74) 100 02/18/19 09:00 30 Mechanical Ventilator 40 02/18/19 09:00 30 40 02/18/19 08:55 73 134/56 02/18/19 08:54 74 134/56 02/18/19 08:49 88 30 40 02/18/19 08:30 73 30 134/56 (82) 98 02/18/19 08:00 75 02/18/19 08:00 97.4 75 30 139/57 (84) 100 02/18/19 08:00 30 Mechanical Ventilator 40 02/18/19 08:00 30 Mechanical Ventilator 40 02/18/19 08:00 Mechanical Ventilator Mechanical Ventilator 02/18/19 08:00 40 02/18/19 07:30 87 30 162/79 (106) 100 02/18/19 07:00 69 30 124/51 (75) 98 02/18/19 07:00 30 Mechanical Ventilator 40 02/18/19 06:40 71 30 100 Mechanical Ventilator 40 02/18/19 06:37 79 30 40 02/18/19 06:33 71 30 99 Mechanical Ventilator 40 02/18/19 06:30 71 27 124/51 (75) 97 02/18/19 06:28 30 Mechanical Ventilator 40 Intake and Output 02/18/19 02/19/19 19:00 07:00 Intake Total 2768.750 ml 1675.5 ml Output Total 1350 ml 1675 ml Balance 1418.750 ml 0.5 ml Free Water 210 ml 70 ml IV Total 2042.750 ml 1132.5 ml Tube Feeding 516 ml 473 ml Output Urine Total 1350 ml 1675 ml Laboratory Tests 02/18/19 08:30: Arterial Blood pH 7.494H, Arterial Blood Partial Pressure CO2 29.3L, Arterial Blood Partial Pressure O2 82.7, Arterial Blood HCO3 22.0, Arterial Blood Oxygen Saturation 95.1, Arterial Blood Base Excess -0.7, Benny Test Positive Height (Feet): 6 Height (Inches): 0.00 Weight (Pounds): 275 General Appearance: severe distress, other - intubated EENT: other - ETT Neck: normal alignment Cardiovascular: tachycardia Respiratory/Chest: decreased breath sounds Abdomen: normal bowel sounds Edema: 2+ Arm (L), 2+ Arm (R), 2+ Leg (L), 2+ Leg (R), 2+ Pedal (L), 2+ Pedal ( R), 2+ Generalized Objective Current Medications Medications (Trade) Dose Ordered Sig/Marquis Route PRN Reason Start Time Stop Time Status Last Admin Dose Admin Acetaminophen (Tylenol) 650 mg Q4H PRN ORAL Mild Pain (Pain Scale 1-3) 02/07/19 11:15 03/08/19 17:29 02/07/19 23:01 Acetaminophen/ Butalbital/ Caffeine (Fioricet) 1 tab Q8H PRN ORAL For Headache 02/08/19 17:15 03/10/19 17:14 Albuterol/ Ipratropium (Albuterol/ Ipratropium) 3 ml Q4HRT HHN 02/14/19 23:00 02/19/19 22:59 02/19/19 03:21 Amlodipine Besylate (Norvasc) 10 mg DAILY NG 02/15/19 09:00 03/14/19 15:59 02/18/19 08:55 Artificial Tears (Lacri-Lube) 1 applic AC+HS BOTH EYES 02/18/19 06:30 03/20/19 06:29 02/19/19 05:02 Aspirin (Ecotrin) 81 mg DAILY ORAL 02/08/19 09:00 03/09/19 08:59 02/18/19 08:54 Atorvastatin Calcium (Lipitor) 10 mg QHS ORAL 02/17/19 21:00 03/10/19 20:59 02/18/19 20:13 Bisacodyl (Dulcolax) 5 mg DAILYPRN PRN ORAL Constipation 02/08/19 17:15 03/10/19 17:14 02/18/19 20:13 Chlorhexidine Gluconate (Jessy-Hex 2%) 1 applic DAILY@2000 TOPIC 02/13/19 20:00 03/15/19 19:59 02/18/19 20:12 Clonidine HCl (Catapres Tab) 0.1 mg EVERY 8 HOURS NG 02/17/19 14:00 03/19/19 13:59 02/19/19 05:01 Dextrose (Dextrose 50%) 25 ml Q30M PRN IV Hypoglycemia 02/15/19 18:15 03/17/19 18:14 Dextrose (Dextrose 50%) 50 ml Q30M PRN IV Hypoglycemia 02/15/19 18:15 03/17/19 18:14 Docusate Sodium (Colace) 100 mg TID GT 02/12/19 18:00 03/12/19 08:59 02/18/19 18:32 Enoxaparin Sodium (Lovenox) 40 mg Q24H SUBQ 02/07/19 21:00 03/08/19 20:59 02/18/19 20:15 Fentanyl Citrate 2500 mcg/Sodium Chloride 250 ml @ 0 mls/hr Q24H IV 02/13/19 15:45 02/20/19 15:44 02/19/19 05:00 Fluconazole/ Sodium Chloride 100 ml @ 100 mls/hr Q24H IV 02/14/19 18:00 02/21/19 17:59 02/18/19 18:32 Guaifenesin (Mucinex ER) 600 mg TWICE A DAY ORAL 02/07/19 18:00 03/09/19 08:59 02/18/19 18:33 Hydralazine HCl (Apresoline) 10 mg Q4H PRN IV bp over 165 syst 02/17/19 10:15 03/19/19 10:14 02/18/19 04:41 Hydralazine HCl (Apresoline) 50 mg Q6HR NG 02/14/19 00:00 03/14/19 17:59 02/19/19 05:01 Insulin Aspart (NovoLOG) EVERY 4 HOURS SUBQ 02/15/19 21:00 03/17/19 20:59 02/19/19 05:03 Insulin Aspart (NovoLOG) 10 units EVERY 4 HOURS SUBQ 02/18/19 17:00 03/17/19 20:59 02/19/19 05:03 Isosorbide Dinitrate (Isordil) 20 mg Q6HR NG 02/15/19 12:00 03/15/19 12:59 02/19/19 05:01 Lansoprazole (Prevacid) 30 mg BID NG 02/12/19 18:00 03/14/19 17:59 02/18/19 18:33 Methylprednisolone Sodium Succinate (Solu-MEDROL) 20 mg EVERY 12 HOURS IVP 02/15/19 21:00 03/12/19 20:59 02/18/19 20:14 Metoprolol Tartrate (Lopressor) 100 mg Q12HR ORAL 02/07/19 21:00 03/08/19 20:59 02/18/19 20:13 Midazolam HCl (Versed 2mg/2ml vial) 1 mg Q2H PRN IVP Agitation 02/13/19 08:45 03/15/19 08:44 02/14/19 05:49 Midazolam HCl 50 mg/Sodium Chloride 100 ml @ 0 mls/hr Q24H IV 02/13/19 15:45 02/20/19 15:44 02/19/19 05:00 Neomycin/ Polymyxin/ Dexamethasone (Maxitrol Opth Oint) 1 applic BEDTIME BOTH EYES 02/18/19 21:00 03/20/19 20:59 02/18/19 20:14 Nitroglycerin (Ntg) 0.4 mg Q5M PRN SL Prn Chest Pain 02/07/19 11:00 03/08/19 17:29 02/08/19 07:42 Ondansetron HCl (Zofran) 4 mg Q6H PRN IVP Nausea & Vomiting 02/07/19 11:15 03/08/19 11:14 02/09/19 00:58 Patient Own Medication (Patient's Own Med) 1 ea BID ORAL 02/07/19 18:00 03/09/19 17:59 02/18/19 18:33 Patient Own Medication (Patient's Own Med) 1 ea Q48H ORAL 02/18/19 09:00 03/20/19 08:59 02/18/19 08:53 Patient Own Medication (Patient's Own Med) 2 ea DAILY ORAL 02/08/19 09:00 03/10/19 08:59 02/17/19 17:53 Piperacillin Sod/ Tazobactam Sod 3.375 gm/Sodium Chloride 110 ml @ 27.5 mls/hr Q12HR@0600,1800 IVPB 02/16/19 18:00 02/23/19 17:59 02/19/19 05:00 Polyethylene Glycol (Miralax) 17 gm BEDTIME ORAL 02/08/19 21:00 03/10/19 20:59 02/18/19 20:13 Sennosides (Senokot) 8.6 mg DAILY ORAL 02/13/19 12:00 03/15/19 11:59 02/18/19 08:54 Trimethoprim/ Sulfamethoxazole 25 ml/Dextrose 575 ml @ 383.333 mls/hr Q12HR@0000,1200 IV 02/17/19 00:00 02/23/19 23:59 02/18/19 23:22 Vancomycin HCl (Vanco rx to dose) 1 ea DAILY PRN MISC . 02/10/19 19:45 03/12/19 19:44 Carlito Nichols MD Feb 19, 2019 06:22
--- NOTE | 2019-02-19 06:30 | NUR ---
NURSE NOTES: Dr. Nichols and Dr. Hernandez at bedside rounding. Updated them both on patients progress. No new orders at this time.
--- NOTE | 2019-02-19 07:10 | NUR ---
NURSE NOTES: Received pt from [facility]. pt is drowsy, sedation decreased for weaning trials this morning. Orally intubated with ETT 7.5/25 at lip line, vent settings AC 30/TV 550/Fio2 40%/PEEP 5, Spo2 94%, RR 32. Fentanyl drip @10mcg/hr and Versed decreased to 1 mg/hr via left femoral João cath w/pigtail. Left wrist 20G TKO, asymptomatic and patent. Bilateral wrist restraints in place, skin intact and warm to touch. Ax temp afebrile, 96.4. Anasarca noted, abdomen distended, round and firm. OGT clamped for weaning trial since 0400. Scrotal edema getting worse. Rectal tube draining watery brown stool to gravity. p200 mattress in place. FC draining blood tinged urine to gravity, draining 100-150ml/hr. Bed locked, alarmed and in lowest position. Will continue plan of care.
[2019-02-19 07:14] LABS: ALANINE AMINOTRANSFERASE 49 U/L (12-78); ALBUMIN 1.6 G/DL (3.4-5.0); ALBUMIN/GLOBULIN RATIO 0.5 (1.0-2.7); ALKALINE PHOSPHATASE 115 U/L (46-116); ANION GAP 7 mmol/L (5-15); ASPARTATE AMINO TRANSFERASE 43 U/L (15-37); BILIRUBIN,TOTAL 0.3 MG/DL (0.2-1.0); BLOOD UREA NITROGEN 59 mg/dL (7-18); CALCIUM 7.6 MG/DL (8.5-10.1); CARBON DIOXIDE 24 MMOL/L (21-32); CHLORIDE 107 MMOL/L (98-107); CREATININE 2.3 MG/DL (0.55-1.30); PHOSPHORUS 3.9 MG/DL (2.5-4.9); POTASSIUM 4.5 MMOL/L (3.5-5.1); SODIUM 138 MMOL/L (136-145)
[2019-02-19 07:28] LABS: HEMATOCRIT 24.3 % (42.0-52.0); HEMOGLOBIN 7.9 G/DL (14.2-18.0); MEAN CORPUSCULAR VOLUME 86 FL (80-99); PLATELET COUNT 202 K/UL (150-450); RED BLOOD COUNT 2.84 M/UL (4.70-6.10); RED CELL DISTRIBUTION WIDTH 17.2 % (11.6-14.8); WHITE BLOOD COUNT 5.7 K/UL (4.8-10.8)
--- NOTE | 2019-02-19 07:45 | NUR ---
RESPIRATORY NOTE: Patient received mechanically ventilated on PB 840 with current ordered vent settings. Patient is orally intubated with a size 7.5 ETT tube with 25cm at the lip line. Vent alarms are functional and audible. There is an ambu bag available at the bedside and the vent is connected to a red outlet. Will continue to monitor.
--- NOTE | 2019-02-19 08:30 | NUR ---
NURSE NOTES: Patient failed weaning on CPAP/PS 8, patient's blood pressure increased to 186/111. Patient became tachycardic and diaphoretic. Did well first 2 minutes and lasted [address] patient back on AC mode, increased Fentanyl to 100mcg/hr and Versed 5mg/hr.
[2019-02-19] MEDS: Aspirin EC 81mg tab ORAL SCH (09:11)
[2019-02-19] MEDS: guaiFENesin ER 600mg tab ORAL SCH ×2 (09:11→17:33)
[2019-02-19] MEDS: Sennosides 8.6mg tab ORAL SCH (09:11)
[2019-02-19] MEDS: Solu-MEDROL 40mg Inj IVP SCH ×2 (09:11→20:41)
[2019-02-19] MEDS: Docusate 100mg/10ml Liq GT SCH ×3 (09:11→17:33)
[2019-02-19] MEDS: ETRAVIRINE 200 MG ORAL SCH (09:12)
[2019-02-19] MEDS: RALTEGRAVIR 400 MG ORAL SCH ×2 (09:12→17:33)
--- NOTE | 2019-02-19 10:12 | NUR ---
RD ASSESSMENT & RECOMMENDATIONS SEE CARE ACTIVITY FOR COMPLETE ASSESSMENT DAILY ESTIMATED NEEDS: Needs based on Critical care, HIV 85kg adj 22-30 kcals/kg 9918-3180 total kcals 1.2-2 g protein/kg 102-170 g total protein 25-30 mL/kg 9748-8464 total fluid mLs NUTRITION DIAGNOSIS: *Swallowing difficulty r/t respiratory status as evidenced by pt on bipap, desat to 78%, critical ABG results, now orally intubated, ICU status. * Altered nutrition related lab values R/T clinical condition, ISH, DM as evidenced by elev K (5.8- now wnl), elev creat (1.5->3.9->2.6 trend down), elev BGs (194 216) w/ A1C 7.0. CURRENT TF:Nepro @43ml/hr x24 hrs + Prosource BID ENTERAL NUTRITION RECOMMENDATIONS: Nepro @ 43ml/hr x 24 hrs + Prosource 1pkt BID to provide 1032ml, 1857 kcal (+80 kcal), 83g prot (+22g prot), 750ml free water - Maintain NEPRO as tolerated - Add Prosource 1pkt BID for additional 80kcal/22g prot -> pt will meet 100% est kcal/prot needs - Flush per MD/ HOB over 30 degrees. will provide 1930mg less K than Glucerna 1.5 @50ml ADDITIONAL RECOMMENDATIONS: 1) CALIBRATED BEDSCALE WT, weekly wts 2) Monitor renal fxn, K and Phos- K trend up * Rec TF change to Nepro at this time 3) Monitor BGs closely while on solumedrol and D5 IVF .
[2019-02-19] MEDS ORDERED: NS 275ml ONE ×3 (10:20→12:59)
[2019-02-19] MEDS ORDERED: Tubing IV Secondary IV ONE (10:20)
--- NOTE | 2019-02-19 11:00 | NUR ---
NURSE NOTES:WOUND CARE NOTES:Pt presented on admission with non-blanchable erythema without elevation in skin temp or fluctuance R elbow (L)4.5cm x (W)4cm .Periwound without erythema or induration.Non-blanchable erythema without elevation in skin temp or fluctuance L elbow(L)3cm x (W)3cm. Periwound skin is dry and pink. Sacral area and both heels without evidence of skin breakdown. No other skin concerns noted. Tx.Plan: Apply Cavilon Skin Barrier to both elbows. Cover each elbow with Optifoam drsgs. Change every 7 days and prn. Apply Cavilon Skin Barrier to both heels. Copver each heel with Optifoam drsg. Change every 7d ays and prn. Apply Moisture Barrier to Sacrum. Cover with Optifoam drsg. Change very 3 days and prn. Reposition at least every 2hours or as tolerated. Place pillows under each elbow. Off-load heels with pillow.
--- NOTE | 2019-02-19 11:55 | GI Progress Note ---
Assessment/Plan Problems: (1) Anemia ICD Codes: D64.9 - Anemia, unspecified SNOMED: 339779657 (2) Anxiety ICD Codes: F41.9 - Anxiety disorder, unspecified SNOMED: 12998902 (3) Anemia ICD Codes: D64.9 - Anemia, unspecified SNOMED: 863218249 (4) Uncontrolled type 2 diabetes mellitus with chronic kidney disease ICD Codes: E11.22 - Type 2 diabetes mellitus with diabetic chronic kidney disease; E11.65 - Type 2 diabetes mellitus with hyperglycemia SNOMED: 91275208, 914022399, [id number] Status: unchanged Status Narrative Discussed with Dr. Ricketts. Assessment/Plan Assessment - Resp failure - Dysphagia / OGT depended - abd distention - Anemia, with OB (-) stools Recommendations - continue NGT feeds - elevate HOB - laxatives PRN - follow labs The patient was seen and examined at bedside and all new and available data was reviewed in the patients chart. I agree with the above findings, impression and plan. (Patient seen earlier today. Signature stamp does not reflect patient encounter time.). - Kg Ricketts MD Subjective Subjective Discussed with RN Tolerating tube feedings Objective Last 24 Hour Vital Signs Date Time Temp Pulse Resp B/P (MAP) Pulse Ox O2 Delivery O2 Flow Rate FiO2 02/19/19 11:41 83 30 100 Mechanical Ventilator 40 02/19/19 11:06 83 30 40 02/19/19 11:00 Endotracheal Tube 40 02/19/19 11:00 30 Mechanical Ventilator 40 02/19/19 10:00 30 Mechanical Ventilator 40 02/19/19 10:00 30 Mechanical Ventilator 40 02/19/19 10:00 87 30 143/71 (95) 100 02/19/19 09:30 104 30 160/74 (102) 97 02/19/19 09:11 108 186/111 02/19/19 09:11 104 186/111 02/19/19 09:03 40 02/19/19 09:00 115 30 183/96 (125) 97 02/19/19 09:00 30 Mechanical Ventilator 40 02/19/19 09:00 35 Mechanical Ventilator 40 02/19/19 08:45 88 31 40 02/19/19 08:30 78 30 186/111 (136) 97 02/19/19 08:00 40 02/19/19 08:00 18 Mechanical Ventilator 40 02/19/19 08:00 18 Mechanical Ventilator 40 02/19/19 08:00 84 02/19/19 08:00 93 30 187/84 (118) 99 02/19/19 08:00 Mechanical Ventilator 02/19/19 07:03 74 30 99 Mechanical Ventilator 40 02/19/19 07:00 16 Mechanical Ventilator 40 02/19/19 07:00 16 Mechanical Ventilator 40 02/19/19 07:00 96.8 81 30 159/67 (97) 99 02/19/19 06:53 68 30 96 Mechanical Ventilator 40 02/19/19 06:40 68 30 40 02/19/19 06:30 69 30 134/52 (79) 97 02/19/19 06:00 72 30 133/51 (78) 95 02/19/19 06:00 30 Mechanical Ventilator 40 02/19/19 06:00 30 Mechanical Ventilator 40 02/19/19 05:30 79 30 143/61 (88) 99 02/19/19 05:18 79 30 40 40 02/19/19 05:01 137/109 02/19/19 05:01 137/109 02/19/19 05:01 137/109 02/19/19 05:00 30 Mechanical Ventilator 40 02/19/19 05:00 30 Mechanical Ventilator 40 02/19/19 05:00 77 30 142/62 (88) 100 02/19/19 04:30 88 30 137/109 (118) 97 02/19/19 04:00 40 02/19/19 04:00 Mechanical Ventilator 02/19/19 04:00 75 02/19/19 04:00 99.2 85 30 157/90 (112) 94 02/19/19 04:00 30 Mechanical Ventilator 40 02/19/19 04:00 30 Mechanical Ventilator 40 02/19/19 03:30 69 30 129/51 (77) 98 02/19/19 03:29 69 30 100 Mechanical Ventilator 40 02/19/19 03:20 69 30 96 Mechanical Ventilator 40 02/19/19 03:19 69 30 40 40 02/19/19 03:00 30 Mechanical Ventilator 40 02/19/19 03:00 30 Mechanical Ventilator 40 02/19/19 03:00 70 30 133/54 (80) 98 02/19/19 02:30 75 30 142/62 (88) 99 02/19/19 02:00 30 Endotracheal Tube 40 02/19/19 02:00 30 40 02/19/19 02:00 82 30 148/75 (99) 100 02/19/19 01:30 67 30 128/52 (77) 95 02/19/19 01:00 67 30 125/50 (75) 95 02/19/19 01:00 30 40 02/19/19 01:00 30 40 02/19/19 00:55 67 30 40 40 02/19/19 00:30 69 30 137/60 (85) 96 02/19/19 00:00 69 02/19/19 00:00 Mechanical Ventilator 02/19/19 00:00 40 02/19/19 00:00 99.5 76 30 148/61 (90) 99 02/19/19 00:00 30 Mechanical Ventilator 40 02/19/19 00:00 30 Mechanical Ventilator 40 02/18/19 23:30 71 30 139/63 (88) 96 02/18/19 23:22 30 40 02/18/19 23:21 131/57 02/18/19 23:21 131/57 02/18/19 23:20 72 30 100 Mechanical Ventilator 40 02/18/19 23:11 67 30 100 Mechanical Ventilator 40 02/18/19 23:10 67 30 40 40 02/18/19 23:00 69 30 131/57 (81) 98 02/18/19 23:00 30 Mechanical Ventilator 40 02/18/19 23:00 30 Mechanical Ventilator 40 02/18/19 22:30 71 30 134/66 (88) 97 02/18/19 22:00 30 Mechanical Ventilator 40 02/18/19 22:00 30 Mechanical Ventilator 40 02/18/19 22:00 69 30 143/66 (91) 98 02/18/19 21:30 143/67 02/18/19 21:30 74 30 151/86 (107) 97 02/18/19 21:15 74 30 40 40 02/18/19 21:00 77 28 143/67 (92) 97 02/18/19 21:00 30 Mechanical Ventilator 40 02/18/19 21:00 30 Mechanical Ventilator 40 02/18/19 20:30 84 22 148/73 (98) 98 02/18/19 20:13 82 144/59 02/18/19 20:00 Mechanical Ventilator 02/18/19 20:00 30 Mechanical Ventilator 40 02/18/19 20:00 30 Mechanical Ventilator 40 02/18/19 20:00 78 02/18/19 20:00 99.1 77 23 132/56 (81) 98 02/18/19 20:00 40 02/18/19 19:30 84 22 143/64 (90) 98 02/18/19 19:02 82 30 100 Mechanical Ventilator 40 02/18/19 19:01 85 30 100 Mechanical Ventilator 40 02/18/19 19:00 88 30 144/59 (87) 100 02/18/19 19:00 30 Mechanical Ventilator 40 02/18/19 19:00 30 Mechanical Ventilator 40 02/18/19 18:59 85 30 40 40 02/18/19 18:33 149/61 02/18/19 18:33 149/61 02/18/19 18:32 30 Mechanical Ventilator 40 02/18/19 18:30 80 29 147/59 (88) 100 02/18/19 18:00 79 29 136/49 (78) 98 02/18/19 18:00 30 Mechanical Ventilator 40 02/18/19 18:00 30 Mechanical Ventilator 40 02/18/19 17:30 84 27 161/72 (101) 98 02/18/19 17:27 88 30 40 02/18/19 17:00 21 Mechanical Ventilator 40 02/18/19 17:00 22 Mechanical Ventilator 40 02/18/19 17:00 75 21 135/58 (83) 99 02/18/19 16:30 69 26 130/54 (79) 99 02/18/19 16:00 98.5 72 30 138/62 (87) 100 02/18/19 16:00 40 02/18/19 16:00 22 Mechanical Ventilator 40 02/18/19 16:00 22 Mechanical Ventilator 40 02/18/19 16:00 72 02/18/19 16:00 Mechanical Ventilator Mechanical Ventilator 02/18/19 15:51 30 Mechanical Ventilator 40 02/18/19 15:30 70 30 131/63 (85) 100 02/18/19 15:24 68 30 100 Mechanical Ventilator 40 02/18/19 15:10 69 25 99 Mechanical Ventilator 40 02/18/19 15:10 69 30 40 02/18/19 15:00 30 Mechanical Ventilator 40 02/18/19 15:00 30 Mechanical Ventilator 40 02/18/19 15:00 71 30 134/58 (83) 100 02/18/19 14:42 143/66 02/18/19 14:30 71 30 143/66 (91) 100 02/18/19 14:00 71 30 136/57 (83) 100 02/18/19 14:00 30 Mechanical Ventilator 40 02/18/19 14:00 30 Mechanical Ventilator 40 02/18/19 13:30 71 29 137/58 (84) 99 02/18/19 13:22 75 30 40 02/18/19 13:00 30 Mechanical Ventilator 40 02/18/19 13:00 30 Mechanical Ventilator 40 02/18/19 13:00 76 30 156/61 (92) 100 02/18/19 12:30 78 30 150/72 (98) 100 02/18/19 12:16 30 Mechanical Ventilator 40 02/18/19 12:00 Mechanical Ventilator Mechanical Ventilator 02/18/19 12:00 97.6 82 30 157/71 (99) 100 02/18/19 12:00 30 Mechanical Ventilator 40 02/18/19 12:00 77 02/18/19 12:00 40 Intake and Output 02/18/19 02/19/19 19:00 07:00 Intake Total 2768.750 ml 1710.0 ml Output Total 1350 ml 1825 ml Balance 1418.750 ml -115.0 ml Free Water 210 ml 70 ml IV Total 2042.750 ml 1167.0 ml Tube Feeding 516 ml 473 ml Output Urine Total 1350 ml 1825 ml Laboratory Tests Test 02/19/19 05:00 White Blood Count 5.7 K/UL (4.8-10.8) Red Blood Count 2.84 M/UL (4.70-6.10) L Hemoglobin 7.9 G/DL (14.2-18.0) L Hematocrit 24.3 % (42.0-52.0) L Mean Corpuscular Volume 86 FL (80-99) Mean Corpuscular Hemoglobin 28.0 PG (27.0-31.0) Mean Corpuscular Hemoglobin Concent 32.6 G/DL (32.0-36.0) Red Cell Distribution Width 17.2 % (11.6-14.8) H Platelet Count 202 K/UL (150-450) Mean Platelet Volume 5.9 FL (6.5-10.1) L Neutrophils (%) (Auto) % (45.0-75.0) Lymphocytes (%) (Auto) % (20.0-45.0) Monocytes (%) (Auto) % (1.0-10.0) Eosinophils (%) (Auto) % (0.0-3.0) Basophils (%) (Auto) % (0.0-2.0) Differential Total Cells Counted 100 Neutrophils % (Manual) 89 % (45-75) H Lymphocytes % (Manual) 9 % (20-45) L Monocytes % (Manual) 2 % (1-10) Eosinophils % (Manual) 0 % (0-3) Basophils % (Manual) 0 % (0-2) Band Neutrophils 0 % (0-8) Platelet Estimate Adequate Platelet Morphology Normal Hypochromasia 3+ Anisocytosis 1+ Spherocytes 1+ Sodium Level 138 MMOL/L (136-145) Potassium Level 4.5 MMOL/L (3.5-5.1) Chloride Level 107 MMOL/L (98-107) Carbon Dioxide Level 24 MMOL/L (21-32) Anion Gap 7 mmol/L (5-15) Blood Urea Nitrogen 59 mg/dL (7-18) H Creatinine 2.3 MG/DL (0.55-1.30) H Estimat Glomerular Filtration Rate 29.2 mL/min (>60) Glucose Level 194 MG/DL (74-106) H Uric Acid 2.8 MG/DL (2.6-7.2) Calcium Level 7.6 MG/DL (8.5-10.1) L Phosphorus Level 3.9 MG/DL (2.5-4.9) Magnesium Level 1.9 MG/DL (1.8-2.4) Total Bilirubin 0.3 MG/DL (0.2-1.0) Aspartate Amino Transf (AST/SGOT) 43 U/L (15-37) H Alanine Aminotransferase (ALT/SGPT) 49 U/L (12-78) Alkaline Phosphatase 115 U/L (46-116) C-Reactive Protein, Quantitative 1.1 mg/dL (0.00-0.90) H Pro-B-Type Natriuretic Peptide 4189 pg/mL (0-125) H Total Protein 4.7 G/DL (6.4-8.2) L Albumin 1.6 G/DL (3.4-5.0) L Globulin 3.1 g/dL Albumin/Globulin Ratio 0.5 (1.0-2.7) L Height (Feet): 6 Height (Inches): 0.00 Weight (Pounds): 275 General Appearance: no apparent distress Cardiovascular: normal rate Respiratory/Chest: other - Endotracheal tube Abdominal Exam: other - NGT Hortencia Zheng NP Feb 19, 2019 11:55
--- NOTE | 2019-02-19 12:21 | Nephrology Progress Note ---
Assessment/Plan Problem List: (1) ISH (acute kidney injury) Assessment: Cr lowering (2) HIV (human immunodeficiency virus infection) (3) NSTEMI (non-ST elevated myocardial infarction) Assessment: troponin decreasing (4) Hypoxia (5) Anemia (6) Diabetes Assessment Acute Renal failure- Cr leveling- Urine out put is good Acidosis improved Acute respiratory failure- Require intubation and Mechanical Ventilation- Anemia- Elevated troponin / MN HTN DM HIV Antibody + Plan Zaroxylin 10 daily trial of Albumin and Lasix stop IV fluid Kayexelate as needed BP med adjustment ? recheck 2D echo?? IV D5W Off Bicitra UA and urine studies Avoid Nephrotoxics as possible Monitor renal parameters keep BP and BS in check Per orders No HD at this time Kidney RADHA noted adjust BP meds add Isordil Subjective ROS Limited/Unobtainable: Yes Objective Objective Last 24 Hour Vital Signs Date Time Temp Pulse Resp B/P (MAP) Pulse Ox O2 Delivery O2 Flow Rate FiO2 02/19/19 12:00 85 30 100 Mechanical Ventilator 40 02/19/19 11:41 83 30 100 Mechanical Ventilator 40 02/19/19 11:06 83 30 40 02/19/19 11:00 Endotracheal Tube 40 02/19/19 11:00 30 Mechanical Ventilator 40 02/19/19 10:00 30 Mechanical Ventilator 40 02/19/19 10:00 30 Mechanical Ventilator 40 02/19/19 10:00 87 30 143/71 (95) 100 02/19/19 09:30 104 30 160/74 (102) 97 02/19/19 09:11 108 186/111 02/19/19 09:11 104 186/111 02/19/19 09:03 40 02/19/19 09:00 115 30 183/96 (125) 97 02/19/19 09:00 30 Mechanical Ventilator 40 02/19/19 09:00 35 Mechanical Ventilator 40 02/19/19 08:45 88 31 40 02/19/19 08:30 78 30 186/111 (136) 97 02/19/19 08:00 40 02/19/19 08:00 18 Mechanical Ventilator 40 02/19/19 08:00 18 Mechanical Ventilator 40 02/19/19 08:00 84 02/19/19 08:00 93 30 187/84 (118) 99 02/19/19 08:00 Mechanical Ventilator 02/19/19 07:03 74 30 99 Mechanical Ventilator 40 02/19/19 07:00 16 Mechanical Ventilator 40 02/19/19 07:00 16 Mechanical Ventilator 40 02/19/19 07:00 96.8 81 30 159/67 (97) 99 02/19/19 06:53 68 30 96 Mechanical Ventilator 40 02/19/19 06:40 68 30 40 02/19/19 06:30 69 30 134/52 (79) 97 02/19/19 06:00 72 30 133/51 (78) 95 02/19/19 06:00 30 Mechanical Ventilator 40 02/19/19 06:00 30 Mechanical Ventilator 40 02/19/19 05:30 79 30 143/61 (88) 99 02/19/19 05:18 79 30 40 40 02/19/19 05:01 137/109 02/19/19 05:01 137/109 02/19/19 05:01 137/109 02/19/19 05:00 30 Mechanical Ventilator 40 02/19/19 05:00 30 Mechanical Ventilator 40 02/19/19 05:00 77 30 142/62 (88) 100 02/19/19 04:30 88 30 137/109 (118) 97 02/19/19 04:00 40 02/19/19 04:00 Mechanical Ventilator 02/19/19 04:00 75 02/19/19 04:00 99.2 85 30 157/90 (112) 94 02/19/19 04:00 30 Mechanical Ventilator 40 02/19/19 04:00 30 Mechanical Ventilator 40 02/19/19 03:30 69 30 129/51 (77) 98 02/19/19 03:29 69 30 100 Mechanical Ventilator 40 02/19/19 03:20 69 30 96 Mechanical Ventilator 40 02/19/19 03:19 69 30 40 40 02/19/19 03:00 30 Mechanical Ventilator 40 02/19/19 03:00 30 Mechanical Ventilator 40 02/19/19 03:00 70 30 133/54 (80) 98 02/19/19 02:30 75 30 142/62 (88) 99 02/19/19 02:00 30 Endotracheal Tube 40 02/19/19 02:00 30 40 02/19/19 02:00 82 30 148/75 (99) 100 02/19/19 01:30 67 30 128/52 (77) 95 02/19/19 01:00 67 30 125/50 (75) 95 02/19/19 01:00 30 40 02/19/19 01:00 30 40 02/19/19 00:55 67 30 40 40 02/19/19 00:30 69 30 137/60 (85) 96 02/19/19 00:00 69 02/19/19 00:00 Mechanical Ventilator 02/19/19 00:00 40 02/19/19 00:00 99.5 76 30 148/61 (90) 99 02/19/19 00:00 30 Mechanical Ventilator 40 02/19/19 00:00 30 Mechanical Ventilator 40 02/18/19 23:30 71 30 139/63 (88) 96 02/18/19 23:22 30 40 02/18/19 23:21 131/57 02/18/19 23:21 131/57 02/18/19 23:20 72 30 100 Mechanical Ventilator 40 02/18/19 23:11 67 30 100 Mechanical Ventilator 40 02/18/19 23:10 67 30 40 40 02/18/19 23:00 69 30 131/57 (81) 98 02/18/19 23:00 30 Mechanical Ventilator 40 02/18/19 23:00 30 Mechanical Ventilator 40 02/18/19 22:30 71 30 134/66 (88) 97 02/18/19 22:00 30 Mechanical Ventilator 40 02/18/19 22:00 30 Mechanical Ventilator 40 02/18/19 22:00 69 30 143/66 (91) 98 02/18/19 21:30 143/67 02/18/19 21:30 74 30 151/86 (107) 97 02/18/19 21:15 74 30 40 40 02/18/19 21:00 77 28 143/67 (92) 97 02/18/19 21:00 30 Mechanical Ventilator 40 02/18/19 21:00 30 Mechanical Ventilator 40 02/18/19 20:30 84 22 148/73 (98) 98 02/18/19 20:13 82 144/59 02/18/19 20:00 Mechanical Ventilator 02/18/19 20:00 30 Mechanical Ventilator 40 02/18/19 20:00 30 Mechanical Ventilator 40 02/18/19 20:00 78 02/18/19 20:00 99.1 77 23 132/56 (81) 98 02/18/19 20:00 40 02/18/19 19:30 84 22 143/64 (90) 98 02/18/19 19:02 82 30 100 Mechanical Ventilator 40 02/18/19 19:01 85 30 100 Mechanical Ventilator 40 02/18/19 19:00 88 30 144/59 (87) 100 02/18/19 19:00 30 Mechanical Ventilator 40 02/18/19 19:00 30 Mechanical Ventilator 40 02/18/19 18:59 85 30 40 40 02/18/19 18:33 149/61 02/18/19 18:33 149/61 02/18/19 18:32 30 Mechanical Ventilator 40 02/18/19 18:30 80 29 147/59 (88) 100 02/18/19 18:00 79 29 136/49 (78) 98 02/18/19 18:00 30 Mechanical Ventilator 40 02/18/19 18:00 30 Mechanical Ventilator 40 02/18/19 17:30 84 27 161/72 (101) 98 02/18/19 17:27 88 30 40 02/18/19 17:00 21 Mechanical Ventilator 40 02/18/19 17:00 22 Mechanical Ventilator 40 02/18/19 17:00 75 21 135/58 (83) 99 02/18/19 16:30 69 26 130/54 (79) 99 02/18/19 16:00 98.5 72 30 138/62 (87) 100 02/18/19 16:00 40 02/18/19 16:00 22 Mechanical Ventilator 40 02/18/19 16:00 22 Mechanical Ventilator 40 02/18/19 16:00 72 02/18/19 16:00 Mechanical Ventilator Mechanical Ventilator 02/18/19 15:51 30 Mechanical Ventilator 40 02/18/19 15:30 70 30 131/63 (85) 100 02/18/19 15:24 68 30 100 Mechanical Ventilator 40 02/18/19 15:10 69 25 99 Mechanical Ventilator 40 02/18/19 15:10 69 30 40 02/18/19 15:00 30 Mechanical Ventilator 40 02/18/19 15:00 30 Mechanical Ventilator 40 02/18/19 15:00 71 30 134/58 (83) 100 02/18/19 14:42 143/66 02/18/19 14:30 71 30 143/66 (91) 100 02/18/19 14:00 71 30 136/57 (83) 100 02/18/19 14:00 30 Mechanical Ventilator 40 02/18/19 14:00 30 Mechanical Ventilator 40 02/18/19 13:30 71 29 137/58 (84) 99 02/18/19 13:22 75 30 40 02/18/19 13:00 30 Mechanical Ventilator 40 02/18/19 13:00 30 Mechanical Ventilator 40 02/18/19 13:00 76 30 156/61 (92) 100 02/18/19 12:30 78 30 150/72 (98) 100 Intake and Output 02/18/19 02/19/19 19:00 07:00 Intake Total 2768.750 ml 1710.0 ml Output Total 1350 ml 1825 ml Balance 1418.750 ml -115.0 ml Free Water 210 ml 70 ml IV Total 2042.750 ml 1167.0 ml Tube Feeding 516 ml 473 ml Output Urine Total 1350 ml 1825 ml Laboratory Tests 02/19/19 05:00: White Blood Count 5.7, Red Blood Count 2.84L, Hemoglobin 7.9L, Hematocrit 24.3L , Mean Corpuscular Volume 86, Mean Corpuscular Hemoglobin 28.0, Mean Corpuscular Hemoglobin Concent 32.6, Red Cell Distribution Width 17.2H, Platelet Count 202, Mean Platelet Volume 5.9L, Neutrophils (%) (Auto) , Lymphocytes (%) (Auto) , Monocytes (%) (Auto) , Eosinophils (%) (Auto) , Basophils (%) (Auto) , Differential Total Cells Counted 100, Neutrophils % ( Manual) 89H, Lymphocytes % (Manual) 9L, Monocytes % (Manual) 2, Eosinophils % ( Manual) 0, Basophils % (Manual) 0, Band Neutrophils 0, Platelet Estimate Adequate, Platelet Morphology Normal, Hypochromasia 3+, Anisocytosis 1+, Spherocytes 1+, Sodium Level 138, Potassium Level 4.5, Chloride Level 107, Carbon Dioxide Level 24, Anion Gap 7, Blood Urea Nitrogen 59H, Creatinine 2.3H, Estimat Glomerular Filtration Rate 29.2, Glucose Level 194H, Uric Acid 2.8, Calcium Level 7.6L, Phosphorus Level 3.9, Magnesium Level 1.9, Total Bilirubin 0.3, Aspartate Amino Transf (AST/SGOT) 43H, Alanine Aminotransferase (ALT/SGPT) 49, Alkaline Phosphatase 115, C-Reactive Protein, Quantitative 1.1H, Pro-B-Type Natriuretic Peptide 4189H, Total Protein 4.7L, Albumin 1.6L, Globulin 3.1, Albumin/Globulin Ratio 0.5L Height (Feet): 6 Height (Inches): 0.00 Weight (Pounds): 275 General Appearance: no apparent distress Cardiovascular: tachycardia Respiratory/Chest: decreased breath sounds Abdomen: distended Mike Mcdonald MD Feb 19, 2019 12:21
--- NOTE | 2019-02-19 12:30 | NUR ---
NURSE NOTES: Per Dr. Mcdonald, infuse albumin 25% and give lasix 40mg IVP right after.
[2019-02-19] MEDS: D5W IV SCH (12:52)
[2019-02-19] MEDS: SULFAMETHOXAZOLE IV SCH (12:52)
[2019-02-19] MEDS: TRIMETHOPRIM IV SCH (12:52)
[2019-02-19] MEDS ORDERED: Sterile Water Irrig 1000ml IRRIG ONE (12:59)
--- NOTE | 2019-02-19 13:20 | Pulmonolgy Critical Care Note ---
Critical Care - Asmt/Plan Problems: (1) Endotracheally intubated (2) Acute hypoxemic respiratory failure (3) Pneumonia (4) NSTEMI (non-ST elevated myocardial infarction) (5) AIDS (6) HIV disease (7) Hypertension (8) MDD (major depressive disorder), recurrent episode, moderate (9) Anemia (10) CKD (chronic kidney disease) (11) History of stroke (12) Diabetes (13) Anxiety (14) Malignant hypertension Assessment/Plan: VDRF ARDS Acute respiratory failure B pulmonary infiltrates, ? multilobar CAP vs atypical infection vs other ? PJP AIDS (CD4 191) NSTEMI H/O prior CVA HTN HL DM with uncontrolled BS ISH on CKD Anemia PLAN: Extubate pt RTC and PRN HHN's Continue Abx per ID + flucon per ID Decrease SM to 10 IV BID Monitor volumes and renal function, F/U renal recs, diurese as able F/U cards recs: will need further ischemia eval/cath once stabilized DVT Px: LMWH F/U ENDO recs Hold sedation for extubation Hold TF's for extubation FC D/W RN and RT @ bedside D/W Dr. Mcdonald CCT 35 Critical Care - Objective Last 24 Hour Vital Signs Date Time Temp Pulse Resp B/P (MAP) Pulse Ox O2 Delivery O2 Flow Rate FiO2 02/19/19 12:52 143/71 02/19/19 12:52 143/71 02/19/19 12:00 85 30 100 Mechanical Ventilator 40 02/19/19 11:41 83 30 100 Mechanical Ventilator 40 02/19/19 11:06 83 30 40 02/19/19 11:00 Endotracheal Tube 40 02/19/19 11:00 30 Mechanical Ventilator 40 02/19/19 10:00 30 Mechanical Ventilator 40 02/19/19 10:00 30 Mechanical Ventilator 40 02/19/19 10:00 87 30 143/71 (95) 100 02/19/19 09:30 104 30 160/74 (102) 97 02/19/19 09:11 108 186/111 02/19/19 09:11 104 186/111 02/19/19 09:03 40 02/19/19 09:00 115 30 183/96 (125) 97 02/19/19 09:00 30 Mechanical Ventilator 40 02/19/19 09:00 35 Mechanical Ventilator 40 02/19/19 08:45 88 31 40 02/19/19 08:30 78 30 186/111 (136) 97 02/19/19 08:00 40 02/19/19 08:00 18 Mechanical Ventilator 40 02/19/19 08:00 18 Mechanical Ventilator 40 02/19/19 08:00 84 02/19/19 08:00 93 30 187/84 (118) 99 02/19/19 08:00 Mechanical Ventilator 02/19/19 07:03 74 30 99 Mechanical Ventilator 40 02/19/19 07:00 16 Mechanical Ventilator 40 02/19/19 07:00 16 Mechanical Ventilator 40 02/19/19 07:00 96.8 81 30 159/67 (97) 99 02/19/19 06:53 68 30 96 Mechanical Ventilator 40 02/19/19 06:40 68 30 40 02/19/19 06:30 69 30 134/52 (79) 97 02/19/19 06:00 72 30 133/51 (78) 95 02/19/19 06:00 30 Mechanical Ventilator 40 02/19/19 06:00 30 Mechanical Ventilator 40 02/19/19 05:30 79 30 143/61 (88) 99 02/19/19 05:18 79 30 40 40 02/19/19 05:01 137/109 02/19/19 05:01 137/109 02/19/19 05:01 137/109 02/19/19 05:00 30 Mechanical Ventilator 40 02/19/19 05:00 30 Mechanical Ventilator 40 02/19/19 05:00 77 30 142/62 (88) 100 02/19/19 04:30 88 30 137/109 (118) 97 02/19/19 04:00 40 02/19/19 04:00 Mechanical Ventilator 02/19/19 04:00 75 02/19/19 04:00 99.2 85 30 157/90 (112) 94 02/19/19 04:00 30 Mechanical Ventilator 40 02/19/19 04:00 30 Mechanical Ventilator 40 02/19/19 03:30 69 30 129/51 (77) 98 02/19/19 03:29 69 30 100 Mechanical Ventilator 40 02/19/19 03:20 69 30 96 Mechanical Ventilator 40 02/19/19 03:19 69 30 40 40 02/19/19 03:00 30 Mechanical Ventilator 40 02/19/19 03:00 30 Mechanical Ventilator 40 02/19/19 03:00 70 30 133/54 (80) 98 02/19/19 02:30 75 30 142/62 (88) 99 02/19/19 02:00 30 Endotracheal Tube 40 02/19/19 02:00 30 40 02/19/19 02:00 82 30 148/75 (99) 100 02/19/19 01:30 67 30 128/52 (77) 95 02/19/19 01:00 67 30 125/50 (75) 95 02/19/19 01:00 30 40 02/19/19 01:00 30 40 02/19/19 00:55 67 30 40 40 02/19/19 00:30 69 30 137/60 (85) 96 02/19/19 00:00 69 02/19/19 00:00 Mechanical Ventilator 02/19/19 00:00 40 02/19/19 00:00 99.5 76 30 148/61 (90) 99 02/19/19 00:00 30 Mechanical Ventilator 40 02/19/19 00:00 30 Mechanical Ventilator 40 02/18/19 23:30 71 30 139/63 (88) 96 02/18/19 23:22 30 40 02/18/19 23:21 131/57 02/18/19 23:21 131/57 02/18/19 23:20 72 30 100 Mechanical Ventilator 40 02/18/19 23:11 67 30 100 Mechanical Ventilator 40 02/18/19 23:10 67 30 40 40 02/18/19 23:00 69 30 131/57 (81) 98 02/18/19 23:00 30 Mechanical Ventilator 40 02/18/19 23:00 30 Mechanical Ventilator 40 02/18/19 22:30 71 30 134/66 (88) 97 02/18/19 22:00 30 Mechanical Ventilator 40 02/18/19 22:00 30 Mechanical Ventilator 40 02/18/19 22:00 69 30 143/66 (91) 98 02/18/19 21:30 143/67 02/18/19 21:30 74 30 151/86 (107) 97 02/18/19 21:15 74 30 40 40 02/18/19 21:00 77 28 143/67 (92) 97 02/18/19 21:00 30 Mechanical Ventilator 40 02/18/19 21:00 30 Mechanical Ventilator 40 02/18/19 20:30 84 22 148/73 (98) 98 02/18/19 20:13 82 144/59 02/18/19 20:00 Mechanical Ventilator 02/18/19 20:00 30 Mechanical Ventilator 40 02/18/19 20:00 30 Mechanical Ventilator 40 02/18/19 20:00 78 02/18/19 20:00 99.1 77 23 132/56 (81) 98 02/18/19 20:00 40 02/18/19 19:30 84 22 143/64 (90) 98 02/18/19 19:02 82 30 100 Mechanical Ventilator 40 02/18/19 19:01 85 30 100 Mechanical Ventilator 40 02/18/19 19:00 88 30 144/59 (87) 100 02/18/19 19:00 30 Mechanical Ventilator 40 02/18/19 19:00 30 Mechanical Ventilator 40 02/18/19 18:59 85 30 40 40 02/18/19 18:33 149/61 02/18/19 18:33 149/61 02/18/19 18:32 30 Mechanical Ventilator 40 02/18/19 18:30 80 29 147/59 (88) 100 02/18/19 18:00 79 29 136/49 (78) 98 02/18/19 18:00 30 Mechanical Ventilator 40 02/18/19 18:00 30 Mechanical Ventilator 40 02/18/19 17:30 84 27 161/72 (101) 98 02/18/19 17:27 88 30 40 02/18/19 17:00 21 Mechanical Ventilator 40 02/18/19 17:00 22 Mechanical Ventilator 40 02/18/19 17:00 75 21 135/58 (83) 99 02/18/19 16:30 69 26 130/54 (79) 99 02/18/19 16:00 98.5 72 30 138/62 (87) 100 02/18/19 16:00 40 02/18/19 16:00 22 Mechanical Ventilator 40 02/18/19 16:00 22 Mechanical Ventilator 40 02/18/19 16:00 72 02/18/19 16:00 Mechanical Ventilator Mechanical Ventilator 02/18/19 15:51 30 Mechanical Ventilator 40 02/18/19 15:30 70 30 131/63 (85) 100 02/18/19 15:24 68 30 100 Mechanical Ventilator 40 02/18/19 15:10 69 25 99 Mechanical Ventilator 40 02/18/19 15:10 69 30 40 02/18/19 15:00 30 Mechanical Ventilator 40 02/18/19 15:00 30 Mechanical Ventilator 40 02/18/19 15:00 71 30 134/58 (83) 100 02/18/19 14:42 143/66 02/18/19 14:30 71 30 143/66 (91) 100 02/18/19 14:00 71 30 136/57 (83) 100 02/18/19 14:00 30 Mechanical Ventilator 40 02/18/19 14:00 30 Mechanical Ventilator 40 02/18/19 13:30 71 29 137/58 (84) 99 02/18/19 13:22 75 30 40 Status: awake, other - intubated Condition: improving HEENT: atraumatic, normocephalic, other - ETT OGT Lungs: rales Heart: HR/BP stable Abdomen: soft, non-tender, active bowel sounds Extremities: edema - 1+, cyanosis - no, clubbing - no Accucheck: 159 Blood Sugars: BS controlled Critical Care - Subjective ROS Limited/Unobtainable: Yes ICU Day: 14 Intubation Day: 12 Interval Events: Raul SBT Diuresing Secretions stable Awake Condition: improving IV Access: PICC, central EKG Rhythm: Sinus Rhythm FI02: 40 Vent Support Breath Rate: 30 Vent Support Mode: AC Vent Tidal Volume: 550 Sputum Amount: Scant PEEP: 5.0 PIP: 44 Tube Feeding Amount: 0 I&O: Intake and Output 02/18/19 02/19/19 19:00 07:00 Intake Total 2768.750 ml 1710.0 ml Output Total 1350 ml 1825 ml Balance 1418.750 ml -115.0 ml Free Water 210 ml 70 ml IV Total 2042.750 ml 1167.0 ml Tube Feeding 516 ml 473 ml Output Urine Total 1350 ml 1825 ml Subjective: Awake no complaints CXR: DecPVC ET-Tube: 7.5 ET Position: 25 Labs: Laboratory Tests Test 02/19/19 05:00 White Blood Count 5.7 K/UL (4.8-10.8) Red Blood Count 2.84 M/UL (4.70-6.10) L Hemoglobin 7.9 G/DL (14.2-18.0) L Hematocrit 24.3 % (42.0-52.0) L Mean Corpuscular Volume 86 FL (80-99) Mean Corpuscular Hemoglobin 28.0 PG (27.0-31.0) Mean Corpuscular Hemoglobin Concent 32.6 G/DL (32.0-36.0) Red Cell Distribution Width 17.2 % (11.6-14.8) H Platelet Count 202 K/UL (150-450) Mean Platelet Volume 5.9 FL (6.5-10.1) L Neutrophils (%) (Auto) % (45.0-75.0) Lymphocytes (%) (Auto) % (20.0-45.0) Monocytes (%) (Auto) % (1.0-10.0) Eosinophils (%) (Auto) % (0.0-3.0) Basophils (%) (Auto) % (0.0-2.0) Differential Total Cells Counted 100 Neutrophils % (Manual) 89 % (45-75) H Lymphocytes % (Manual) 9 % (20-45) L Monocytes % (Manual) 2 % (1-10) Eosinophils % (Manual) 0 % (0-3) Basophils % (Manual) 0 % (0-2) Band Neutrophils 0 % (0-8) Platelet Estimate Adequate Platelet Morphology Normal Hypochromasia 3+ Anisocytosis 1+ Spherocytes 1+ Sodium Level 138 MMOL/L (136-145) Potassium Level 4.5 MMOL/L (3.5-5.1) Chloride Level 107 MMOL/L (98-107) Carbon Dioxide Level 24 MMOL/L (21-32) Anion Gap 7 mmol/L (5-15) Blood Urea Nitrogen 59 mg/dL (7-18) H Creatinine 2.3 MG/DL (0.55-1.30) H Estimat Glomerular Filtration Rate 29.2 mL/min (>60) Glucose Level 194 MG/DL (74-106) H Uric Acid 2.8 MG/DL (2.6-7.2) Calcium Level 7.6 MG/DL (8.5-10.1) L Phosphorus Level 3.9 MG/DL (2.5-4.9) Magnesium Level 1.9 MG/DL (1.8-2.4) Total Bilirubin 0.3 MG/DL (0.2-1.0) Aspartate Amino Transf (AST/SGOT) 43 U/L (15-37) H Alanine Aminotransferase (ALT/SGPT) 49 U/L (12-78) Alkaline Phosphatase 115 U/L (46-116) C-Reactive Protein, Quantitative 1.1 mg/dL (0.00-0.90) H Pro-B-Type Natriuretic Peptide 4189 pg/mL (0-125) H Total Protein 4.7 G/DL (6.4-8.2) L Albumin 1.6 G/DL (3.4-5.0) L Globulin 3.1 g/dL Albumin/Globulin Ratio 0.5 (1.0-2.7) L Brett Mereidth MD Feb 19, 2019 13:20
--- NOTE | 2019-02-19 13:22 | NUR ---
NURSE NOTES: Patient placed on CPAP/PS 8 for [address] Meredith, tolerated well, RR 21, SPo2 100%, breathing even and unlabored. Received orders to extubate ETT by RT. Stopped all sedations and extubated at 1305, placed patient on cool aerosol mask 50%, wheezing heard in upper lobes, no rales, RR 26, HR 103, BP 143/89, Spo2 92-97%. Dr. Meredith said he will come by again.
--- NOTE | 2019-02-19 13:29 | Hematology/Onc Progress Note ---
Assessment/Plan Assessment/Plan ASSESSMENT AND RECOMMENDATIONS # Anemia of chronic disease due to underlying chronic medical issues, multifactorial --> Anemia workup has been reviewed. Ferritin 182 --> No evidence of hemolysis is noted, peripheral smear has been reviewed. --> Hgb goal >7. Transfuse prn. --> Epogen or iron at this time is not particularly indicated --> Medications have been reviewed --> Stool OB negative --> bone marrow biopsy is not indicated given the other more likely causes --> Blood tx: 1 unit on 02/10/19, --> Hgb trend: 7.6-->8.2-->9.4-->8.4-->8.2 -->8.9-->10.3->7.9 # Thrombocytopenia - potential causes multifactorial, likely related to HIV status --> Hep panel pending and HIV confirmed positive --> US abd to evaluate for cirrhosis and hsm ordered --> Peripheral smear ordered to evaluate for blasts /schistocytes --> abx and other meds have been reviewed --> ok for ppx if plt >50k w/ either heparin or lovenox --> Transfuse if Plt < 20k and fever, or if Plt < 10k without fever --> Plt trend: 153-->257-->224-->205-->253-->310 --> WILLIAM screen negative # Multilobar pneumonia in patient with HIV. Recs per ID. --> Broad sp atbx started. Continue Zosyn, Vancomycin and Azithromycin --> Droplet precaution # Hypoxemic respiratory failure. Pulm is following, appreciate recs. --> Bipap as needed, transition to O2 via NC when able --> Due to pneumonia, on abx # Chest pain. 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 --> Trend troponin x3 --> NGT prn # HIV. --> Continue HARRT --> VL is undetectable per patient report. # HTN --> Resume home medication # DVT and GI ppx The time the note is entered does not reflect the time the patient was examined. I greatly appreciate the consultation. Subjective Constitutional: Denies: no symptoms, chills, fever, malaise, weakness, other HEENT: Denies: no symptoms, eye pain, blurred vision, tearing, double vision, ear pain, ear discharge, nose pain, nose congestion, throat pain, throat swelling, mouth pain, mouth swelling, other Cardiovascular: Denies: no symptoms, chest pain, edema, irregular heart rate, lightheadedness, palpitations, syncope, other Respiratory: Denies: no symptoms, cough, shortness of breath, SOB with excertion, SOB at rest, sputum, wheezing, other Gastrointestinal/Abdominal: Denies: no symptoms, abdomen distended, abdominal pain, black stools, tarry stools, blood in stool, constipated, diarrhea, difficulty swallowing, nausea, poor appetite, poor fluid intake, rectal bleeding , vomiting, other Genitourinary: Denies: no symptoms, burning, discharge, frequency, flank pain, hematuria, incontinence, pain, urgency, other Neurologic/Psychiatric: Denies: no symptoms, anxiety, depressed, emotional problems, headache, numbness, paresthesia, pre-existing deficit, seizure, tingling, tremors, weakness, other Endocrine: Denies: no symptoms, excessive sweating, flushing, intolerance to cold, intolerance to heat, increased hunger, increased thirst, increased urine, unexplained weight gain, unexplained weight loss, other Allergies: Coded Allergies: No Known Allergies (Unverified , 02/05/13) Subjective 02/11: Hgb yesterday was 7.6, s/p 1 unit prbc. Current hgb at 8.2. Pt attempted to pull out tubes per nursing team, soft restraints applied. 02/13: Pt in ICU and intubated. Pt currently sedated. Current hgb 9.4. 02/14: Pt remains in icu, sedated. Hgb stable. 02/15: Remains in icu, lethargic. No acute events. Hgb stable. 02/16: Remains in icu. CXR today shows worsening CHF/pulmonary edema. Pt wake and sedation decrease for weaning. 02/18: Remains in icu. Pt on vent. CXR today shows pulmonary edema, persistent small left pleural effusion. 02/19: Remains in the icu, now extubated, seen by pulm, labs reviewed Objective Objective Current Medications Medications (Trade) Dose Ordered Sig/Marquis Route PRN Reason Start Time Stop Time Status Last Admin Dose Admin Acetaminophen (Tylenol) 650 mg Q4H PRN ORAL Mild Pain (Pain Scale 1-3) 02/07/19 11:15 03/08/19 17:29 02/07/19 23:01 Acetaminophen/ Butalbital/ Caffeine (Fioricet) 1 tab Q8H PRN ORAL For Headache 02/08/19 17:15 03/10/19 17:14 Albuterol/ Ipratropium (Albuterol/ Ipratropium) 3 ml Q4HRT HHN 02/14/19 23:00 02/19/19 22:59 02/19/19 11:41 Amlodipine Besylate (Norvasc) 10 mg DAILY NG 02/15/19 09:00 03/14/19 15:59 02/19/19 09:11 Artificial Tears (Lacri-Lube) 1 applic AC+HS BOTH EYES 02/18/19 06:30 03/20/19 06:29 02/19/19 11:30 Aspirin (Ecotrin) 81 mg DAILY ORAL 02/08/19 09:00 03/09/19 08:59 02/19/19 09:11 Atorvastatin Calcium (Lipitor) 10 mg QHS ORAL 02/17/19 21:00 03/10/19 20:59 02/18/19 20:13 Bisacodyl (Dulcolax) 5 mg DAILYPRN PRN ORAL Constipation 02/08/19 17:15 03/10/19 17:14 02/18/19 20:13 Chlorhexidine Gluconate (Jessy-Hex 2%) 1 applic DAILY@2000 TOPIC 02/13/19 20:00 03/15/19 19:59 02/18/19 20:12 Clonidine HCl (Catapres Tab) 0.1 mg EVERY 8 HOURS NG 02/17/19 14:00 03/19/19 13:59 02/19/19 13:17 Dextrose (Dextrose 50%) 25 ml Q30M PRN IV Hypoglycemia 02/15/19 18:15 03/17/19 18:14 Dextrose (Dextrose 50%) 50 ml Q30M PRN IV Hypoglycemia 02/15/19 18:15 03/17/19 18:14 Docusate Sodium (Colace) 100 mg TID GT 02/12/19 18:00 03/12/19 08:59 02/19/19 12:51 Enoxaparin Sodium (Lovenox) 40 mg Q24H SUBQ 02/07/19 21:00 03/08/19 20:59 02/18/19 20:15 Fentanyl Citrate 2500 mcg/Sodium Chloride 250 ml @ 0 mls/hr Q24H IV 02/13/19 15:45 02/20/19 15:44 02/19/19 05:00 Fluconazole/ Sodium Chloride 100 ml @ 100 mls/hr Q24H IV 02/14/19 18:00 02/21/19 17:59 02/18/19 18:32 Furosemide (Lasix) 40 mg ONCE IV 02/19/19 13:15 02/19/19 14:30 02/19/19 12:26 Guaifenesin (Mucinex ER) 600 mg TWICE A DAY ORAL 02/07/19 18:00 03/09/19 08:59 02/19/19 09:11 Hydralazine HCl (Apresoline) 10 mg Q4H PRN IV bp over 165 syst 02/17/19 10:15 03/19/19 10:14 02/18/19 04:41 Hydralazine HCl (Apresoline) 50 mg Q6HR NG 02/14/19 00:00 03/14/19 17:59 02/19/19 12:52 Insulin Aspart (NovoLOG) EVERY 4 HOURS SUBQ 02/15/19 21:00 03/17/19 20:59 02/19/19 13:18 Insulin Aspart (NovoLOG) 10 units EVERY 4 HOURS SUBQ 02/18/19 17:00 03/17/19 20:59 02/19/19 13:18 Isosorbide Dinitrate (Isordil) 20 mg Q6HR NG 02/15/19 12:00 03/15/19 12:59 02/19/19 12:52 Lansoprazole (Prevacid) 30 mg BID NG 02/12/19 18:00 03/14/19 17:59 02/19/19 09:11 Methylprednisolone Sodium Succinate (Solu-MEDROL) 10 mg EVERY 12 HOURS IVP 02/19/19 21:00 03/12/19 20:59 Metolazone (Zaroxolyn) 10 mg DAILY NG 02/19/19 10:00 03/21/19 09:59 02/19/19 09:23 Metoprolol Tartrate (Lopressor) 100 mg Q12HR ORAL 02/07/19 21:00 03/08/19 20:59 02/19/19 09:11 Midazolam HCl (Versed 2mg/2ml vial) 1 mg Q2H PRN IVP Agitation 02/13/19 08:45 03/15/19 08:44 02/14/19 05:49 Midazolam HCl 50 mg/Sodium Chloride 100 ml @ 0 mls/hr Q24H IV 02/13/19 15:45 02/20/19 15:44 02/19/19 05:00 Neomycin/ Polymyxin/ Dexamethasone (Maxitrol Opth Oint) 1 applic BEDTIME BOTH EYES 02/18/19 21:00 03/20/19 20:59 02/18/19 20:14 Nitroglycerin (Ntg) 0.4 mg Q5M PRN SL Prn Chest Pain 02/07/19 11:00 03/08/19 17:29 02/08/19 07:42 Ondansetron HCl (Zofran) 4 mg Q6H PRN IVP Nausea & Vomiting 02/07/19 11:15 03/08/19 11:14 02/09/19 00:58 Patient Own Medication (Patient's Own Med) 1 ea BID ORAL 02/07/19 18:00 03/09/19 17:59 02/19/19 09:12 Patient Own Medication (Patient's Own Med) 1 ea Q48H ORAL 02/18/19 09:00 03/20/19 08:59 02/18/19 08:53 Patient Own Medication (Patient's Own Med) 2 ea DAILY ORAL 02/08/19 09:00 03/10/19 08:59 02/19/19 09:12 Piperacillin Sod/ Tazobactam Sod 3.375 gm/Sodium Chloride 110 ml @ 27.5 mls/hr Q12HR@0600,1800 IVPB 02/16/19 18:00 02/23/19 17:59 02/19/19 05:00 Polyethylene Glycol (Miralax) 17 gm BEDTIME ORAL 02/08/19 21:00 03/10/19 20:59 02/18/19 20:13 Sennosides (Senokot) 8.6 mg DAILY ORAL 02/13/19 12:00 03/15/19 11:59 02/19/19 09:11 Trimethoprim/ Sulfamethoxazole 25 ml/Dextrose 575 ml @ 383.333 mls/hr Q12HR@0000,1200 IV 02/17/19 00:00 02/23/19 23:59 02/19/19 12:52 Vancomycin HCl (Vanco rx to dose) 1 ea DAILY PRN MISC . 02/10/19 19:45 03/12/19 19:44 Last 24 Hour Vital Signs Date Time Temp Pulse Resp B/P (MAP) Pulse Ox O2 Delivery O2 Flow Rate FiO2 02/19/19 13:17 143/71 02/19/19 13:09 T-piece 10.0 50 02/19/19 13:07 95 Cool Aerosol 10.0 50 02/19/19 12:52 143/71 02/19/19 12:52 143/71 02/19/19 12:00 85 30 100 Mechanical Ventilator 40 02/19/19 11:41 83 30 100 Mechanical Ventilator 40 02/19/19 11:06 83 30 40 02/19/19 11:00 Endotracheal Tube 40 02/19/19 11:00 30 Mechanical Ventilator 40 02/19/19 10:00 30 Mechanical Ventilator 40 02/19/19 10:00 30 Mechanical Ventilator 40 02/19/19 10:00 87 30 143/71 (95) 100 02/19/19 09:30 104 30 160/74 (102) 97 02/19/19 09:11 108 186/111 02/19/19 09:11 104 186/111 02/19/19 09:03 40 02/19/19 09:00 115 30 183/96 (125) 97 02/19/19 09:00 30 Mechanical Ventilator 40 02/19/19 09:00 35 Mechanical Ventilator 40 02/19/19 08:45 88 31 40 02/19/19 08:30 78 30 186/111 (136) 97 02/19/19 08:00 40 02/19/19 08:00 18 Mechanical Ventilator 40 02/19/19 08:00 18 Mechanical Ventilator 40 02/19/19 08:00 84 02/19/19 08:00 93 30 187/84 (118) 99 02/19/19 08:00 Mechanical Ventilator 02/19/19 07:03 74 30 99 Mechanical Ventilator 40 02/19/19 07:00 16 Mechanical Ventilator 40 02/19/19 07:00 16 Mechanical Ventilator 40 02/19/19 07:00 96.8 81 30 159/67 (97) 99 02/19/19 06:53 68 30 96 Mechanical Ventilator 40 02/19/19 06:40 68 30 40 02/19/19 06:30 69 30 134/52 (79) 97 02/19/19 06:00 72 30 133/51 (78) 95 02/19/19 06:00 30 Mechanical Ventilator 40 02/19/19 06:00 30 Mechanical Ventilator 40 02/19/19 05:30 79 30 143/61 (88) 99 02/19/19 05:18 79 30 40 40 02/19/19 05:01 137/109 02/19/19 05:01 137/109 02/19/19 05:01 137/109 02/19/19 05:00 30 Mechanical Ventilator 40 02/19/19 05:00 30 Mechanical Ventilator 40 02/19/19 05:00 77 30 142/62 (88) 100 02/19/19 04:30 88 30 137/109 (118) 97 02/19/19 04:00 40 02/19/19 04:00 Mechanical Ventilator 02/19/19 04:00 75 02/19/19 04:00 99.2 85 30 157/90 (112) 94 02/19/19 04:00 30 Mechanical Ventilator 40 02/19/19 04:00 30 Mechanical Ventilator 40 02/19/19 03:30 69 30 129/51 (77) 98 02/19/19 03:29 69 30 100 Mechanical Ventilator 40 02/19/19 03:20 69 30 96 Mechanical Ventilator 40 02/19/19 03:19 69 30 40 40 02/19/19 03:00 30 Mechanical Ventilator 40 02/19/19 03:00 30 Mechanical Ventilator 40 02/19/19 03:00 70 30 133/54 (80) 98 02/19/19 02:30 75 30 142/62 (88) 99 02/19/19 02:00 30 Endotracheal Tube 40 02/19/19 02:00 30 40 02/19/19 02:00 82 30 148/75 (99) 100 02/19/19 01:30 67 30 128/52 (77) 95 02/19/19 01:00 67 30 125/50 (75) 95 02/19/19 01:00 30 40 02/19/19 01:00 30 40 02/19/19 00:55 67 30 40 40 02/19/19 00:30 69 30 137/60 (85) 96 02/19/19 00:00 69 02/19/19 00:00 Mechanical Ventilator 02/19/19 00:00 40 02/19/19 00:00 99.5 76 30 148/61 (90) 99 02/19/19 00:00 30 Mechanical Ventilator 40 02/19/19 00:00 30 Mechanical Ventilator 40 02/18/19 23:30 71 30 139/63 (88) 96 02/18/19 23:22 30 40 02/18/19 23:21 131/57 02/18/19 23:21 131/57 02/18/19 23:20 72 30 100 Mechanical Ventilator 40 02/18/19 23:11 67 30 100 Mechanical Ventilator 40 02/18/19 23:10 67 30 40 40 02/18/19 23:00 69 30 131/57 (81) 98 02/18/19 23:00 30 Mechanical Ventilator 40 02/18/19 23:00 30 Mechanical Ventilator 40 02/18/19 22:30 71 30 134/66 (88) 97 02/18/19 22:00 30 Mechanical Ventilator 40 02/18/19 22:00 30 Mechanical Ventilator 40 02/18/19 22:00 69 30 143/66 (91) 98 02/18/19 21:30 143/67 02/18/19 21:30 74 30 151/86 (107) 97 02/18/19 21:15 74 30 40 40 02/18/19 21:00 77 28 143/67 (92) 97 02/18/19 21:00 30 Mechanical Ventilator 40 02/18/19 21:00 30 Mechanical Ventilator 40 02/18/19 20:30 84 22 148/73 (98) 98 02/18/19 20:13 82 144/59 02/18/19 20:00 Mechanical Ventilator 02/18/19 20:00 30 Mechanical Ventilator 40 02/18/19 20:00 30 Mechanical Ventilator 40 02/18/19 20:00 78 02/18/19 20:00 99.1 77 23 132/56 (81) 98 02/18/19 20:00 40 02/18/19 19:30 84 22 143/64 (90) 98 02/18/19 19:02 82 30 100 Mechanical Ventilator 40 02/18/19 19:01 85 30 100 Mechanical Ventilator 40 02/18/19 19:00 88 30 144/59 (87) 100 02/18/19 19:00 30 Mechanical Ventilator 40 02/18/19 19:00 30 Mechanical Ventilator 40 02/18/19 18:59 85 30 40 40 02/18/19 18:33 149/61 02/18/19 18:33 149/61 02/18/19 18:32 30 Mechanical Ventilator 40 02/18/19 18:30 80 29 147/59 (88) 100 02/18/19 18:00 79 29 136/49 (78) 98 02/18/19 18:00 30 Mechanical Ventilator 40 02/18/19 18:00 30 Mechanical Ventilator 40 02/18/19 17:30 84 27 161/72 (101) 98 02/18/19 17:27 88 30 40 02/18/19 17:00 21 Mechanical Ventilator 40 02/18/19 17:00 22 Mechanical Ventilator 40 02/18/19 17:00 75 21 135/58 (83) 99 02/18/19 16:30 69 26 130/54 (79) 99 02/18/19 16:00 98.5 72 30 138/62 (87) 100 02/18/19 16:00 40 02/18/19 16:00 22 Mechanical Ventilator 40 02/18/19 16:00 22 Mechanical Ventilator 40 02/18/19 16:00 72 02/18/19 16:00 Mechanical Ventilator Mechanical Ventilator 02/18/19 15:51 30 Mechanical Ventilator 40 02/18/19 15:30 70 30 131/63 (85) 100 02/18/19 15:24 68 30 100 Mechanical Ventilator 40 02/18/19 15:10 69 25 99 Mechanical Ventilator 40 02/18/19 15:10 69 30 40 02/18/19 15:00 30 Mechanical Ventilator 40 02/18/19 15:00 30 Mechanical Ventilator 40 02/18/19 15:00 71 30 134/58 (83) 100 02/18/19 14:42 143/66 02/18/19 14:30 71 30 143/66 (91) 100 02/18/19 14:00 71 30 136/57 (83) 100 02/18/19 14:00 30 Mechanical Ventilator 40 02/18/19 14:00 30 Mechanical Ventilator 40 02/18/19 13:30 71 29 137/58 (84) 99 02/18/19 13:22 75 30 40 02/18/19 13:00 30 Mechanical Ventilator 40 02/18/19 13:00 30 Mechanical Ventilator 40 02/18/19 13:00 76 30 156/61 (92) 100 02/18/19 12:30 78 30 150/72 (98) 100 02/18/19 12:16 30 Mechanical Ventilator 40 02/18/19 12:00 Mechanical Ventilator Mechanical Ventilator 02/18/19 12:00 97.6 82 30 157/71 (99) 100 02/18/19 12:00 30 Mechanical Ventilator 40 02/18/19 12:00 77 02/18/19 12:00 40 02/18/19 11:30 79 30 174/102 (126) 100 02/18/19 11:28 159/69 02/18/19 11:28 159/69 02/18/19 11:12 80 24 40 02/18/19 11:10 80 24 100 Mechanical Ventilator 40 02/18/19 11:00 77 30 167/70 (102) 100 02/18/19 11:00 30 Mechanical Ventilator 40 02/18/19 11:00 30 Mechanical Ventilator 40 02/18/19 11:00 80 24 99 Mechanical Ventilator 40 02/18/19 10:30 67 30 140/57 (84) 100 02/18/19 10:00 74 30 157/66 (96) 100 02/18/19 10:00 30 Mechanical Ventilator 40 02/18/19 10:00 30 Mechanical Ventilator 40 02/18/19 09:30 73 30 147/62 (90) 100 02/18/19 09:00 81 30 92/65 (74) 100 02/18/19 09:00 30 Mechanical Ventilator 40 02/18/19 09:00 30 40 02/18/19 08:55 73 134/56 02/18/19 08:54 74 134/56 02/18/19 08:49 88 30 40 02/18/19 08:30 73 30 134/56 (82) 98 02/18/19 08:00 75 02/18/19 08:00 97.4 75 30 139/57 (84) 100 02/18/19 08:00 30 Mechanical Ventilator 40 02/18/19 08:00 30 Mechanical Ventilator 40 02/18/19 08:00 Mechanical Ventilator Mechanical Ventilator 02/18/19 08:00 40 02/18/19 07:30 87 30 162/79 (106) 100 02/18/19 07:00 69 30 124/51 (75) 98 02/18/19 07:00 30 Mechanical Ventilator 40 02/18/19 06:40 71 30 100 Mechanical Ventilator 40 02/18/19 06:37 79 30 40 02/18/19 06:33 71 30 99 Mechanical Ventilator 40 02/18/19 06:30 71 27 124/51 (75) 97 02/18/19 06:28 30 Mechanical Ventilator 40 02/18/19 06:00 74 22 136/56 (82) 100 02/18/19 06:00 22 Mechanical Ventilator 40 02/18/19 05:36 178/78 02/18/19 05:36 178/78 02/18/19 05:36 178/78 02/18/19 05:30 88 23 166/92 (116) 100 02/18/19 05:01 78 30 40 02/18/19 05:00 23 Mechanical Ventilator 40 02/18/19 05:00 81 30 162/76 (104) 100 02/18/19 04:41 173/74 02/18/19 04:30 80 30 173/74 (107) 100 02/18/19 04:00 30 Mechanical Ventilator 40 02/18/19 04:00 Mechanical Ventilator Mechanical Ventilator Mechanical Ventilator 02/18/19 04:00 97.7 88 30 179/75 (109) 99 02/18/19 04:00 40 02/18/19 03:30 84 30 135/94 (108) 100 02/18/19 03:26 84 30 100 Mechanical Ventilator 40 02/18/19 03:16 64 30 98 Mechanical Ventilator 40 02/18/19 03:16 64 30 40 02/18/19 03:00 65 28 158/61 (93) 99 02/18/19 02:57 65 02/18/19 02:30 65 30 157/65 (95) 98 02/18/19 02:24 30 Mechanical Ventilator 40 02/18/19 02:00 64 30 150/62 (91) 98 02/18/19 01:30 64 30 147/52 (83) 98 02/18/19 01:12 30 Mechanical Ventilator 40 02/18/19 01:00 65 30 151/61 (91) 99 02/18/19 01:00 65 30 40 02/18/19 01:00 30 Mechanical Ventilator 40 02/18/19 00:30 67 30 151/61 (91) 97 02/18/19 00:00 Mechanical Ventilator Mechanical Ventilator Mechanical Ventilator 02/18/19 00:00 30 Mechanical Ventilator 40 02/18/19 00:00 98.0 67 30 153/60 (91) 98 02/18/19 00:00 40 02/17/19 23:33 147/57 02/17/19 23:33 147/57 02/17/19 23:30 65 30 147/57 (87) 99 02/17/19 23:25 65 30 99 Mechanical Ventilator 40 02/17/19 23:15 65 30 98 Mechanical Ventilator 40 02/17/19 23:15 65 30 40 02/17/19 23:00 67 30 148/56 (86) 99 02/17/19 23:00 30 Mechanical Ventilator 40 02/17/19 22:59 67 02/17/19 22:30 68 30 157/58 (91) 99 02/17/19 22:00 30 Mechanical Ventilator 40 02/17/19 22:00 80 18 177/76 (109) 100 02/17/19 21:39 154/62 02/17/19 21:30 70 30 154/62 (92) 98 02/17/19 21:09 77 31 40 02/17/19 21:00 76 30 151/67 (95) 100 02/17/19 21:00 30 Mechanical Ventilator 40 02/17/19 20:43 70 138/58 02/17/19 20:30 70 30 138/58 (84) 97 02/17/19 20:08 30 Mechanical Ventilator 40 02/17/19 20:00 40 02/17/19 20:00 Mechanical Ventilator Mechanical Ventilator Mechanical Ventilator 02/17/19 20:00 98.4 72 30 135/58 (83) 98 02/17/19 20:00 30 Mechanical Ventilator 40 02/17/19 19:30 72 30 134/58 (83) 98 02/17/19 19:24 71 30 99 Mechanical Ventilator 40 02/17/19 19:14 71 30 99 Mechanical Ventilator 40 02/17/19 19:14 71 02/17/19 19:13 71 30 40 02/17/19 19:00 71 30 134/57 (82) 98 02/17/19 19:00 30 Mechanical Ventilator 40 02/17/19 19:00 30 Mechanical Ventilator 40 02/17/19 18:30 85 30 136/60 (85) 99 02/17/19 18:30 82 28 162/73 (102) 100 02/17/19 18:00 83 30 162/73 (102) 98 02/17/19 18:00 30 Mechanical Ventilator 40 02/17/19 18:00 30 40 02/17/19 18:00 87 19 225/76 (125) 99 02/17/19 17:54 184/70 02/17/19 17:53 184/70 02/17/19 17:30 70 30 177/98 (124) 98 02/17/19 17:00 77 29 175/100 (125) 98 02/17/19 17:00 29 Mechanical Ventilator 40 02/17/19 17:00 30 40 02/17/19 16:49 69 30 40 02/17/19 16:30 70 18 151/67 (95) 99 02/17/19 16:00 72 02/17/19 16:00 98.5 72 30 157/73 (101) 98 02/17/19 16:00 30 Mechanical Ventilator 40 02/17/19 16:00 30 Mechanical Ventilator 40 02/17/19 16:00 40 02/17/19 16:00 Mechanical Ventilator Mechanical Ventilator Mechanical Ventilator 02/17/19 15:36 30 Mechanical Ventilator 40 02/17/19 15:30 84 18 200/171 (181) 99 02/17/19 15:16 85 30 100 Mechanical Ventilator 40 02/17/19 15:06 85 30 100 Mechanical Ventilator 40 02/17/19 15:04 85 30 40 02/17/19 15:00 83 30 197/159 (172) 100 02/17/19 15:00 26 Mechanical Ventilator 40 02/17/19 15:00 26 Mechanical Ventilator 40 02/17/19 14:45 81 27 205/85 (125) 100 02/17/19 14:30 90 30 230/139 (169) 99 02/17/19 14:20 30 Mechanical Ventilator 40 02/17/19 14:15 69 30 203/76 (118) 98 02/17/19 14:00 69 30 186/70 (108) 98 02/17/19 14:00 30 40 02/17/19 14:00 30 40 02/17/19 13:30 70 30 186/70 (108) 97 Intake and Output 02/18/19 02/19/19 19:00 07:00 Intake Total 2768.750 ml 1710.0 ml Output Total 1350 ml 1825 ml Balance 1418.750 ml -115.0 ml Free Water 210 ml 70 ml IV Total 2042.750 ml 1167.0 ml Tube Feeding 516 ml 473 ml Output Urine Total 1350 ml 1825 ml Labs Test 02/17/19 05:00 02/18/19 05:30 02/18/19 08:30 02/19/19 05:00 White Blood Count 6.0 K/UL (4.8-10.8) 8.1 K/UL (4.8-10.8) 5.7 K/UL (4.8-10.8) Red Blood Count 3.11 M/UL (4.70-6.10) 3.68 M/UL (4.70-6.10) 2.84 M/UL (4.70-6.10) Hemoglobin 8.7 G/DL (14.2-18.0) 10.3 G/DL (14.2-18.0) 7.9 G/DL (14.2-18.0) Hematocrit 27.1 % (42.0-52.0) 31.8 % (42.0-52.0) 24.3 % (42.0-52.0) Mean Corpuscular Volume 87 FL (80-99) 87 FL (80-99) 86 FL (80-99) Mean Corpuscular Hemoglobin 27.9 PG (27.0-31.0) 28.1 PG (27.0-31.0) 28.0 PG (27.0-31.0) Mean Corpuscular Hemoglobin Concent 32.0 G/DL (32.0-36.0) 32.4 G/DL (32.0-36.0) 32.6 G/DL (32.0-36.0) Red Cell Distribution Width 17.6 % (11.6-14.8) 17.4 % (11.6-14.8) 17.2 % (11.6-14.8) Platelet Count 245 K/UL (150-450) 310 K/UL (150-450) 202 K/UL (150-450) Mean Platelet Volume 5.9 FL (6.5-10.1) 6.4 FL (6.5-10.1) 5.9 FL (6.5-10.1) Neutrophils (%) (Auto) 81.3 % (45.0-75.0) 83.5 % (45.0-75.0) % (45.0-75.0) Lymphocytes (%) (Auto) 9.6 % (20.0-45.0) 9.2 % (20.0-45.0) % (20.0-45.0) Monocytes (%) (Auto) 8.4 % (1.0-10.0) 6.7 % (1.0-10.0) % (1.0-10.0) Eosinophils (%) (Auto) 0.4 % (0.0-3.0) 0.2 % (0.0-3.0) % (0.0-3.0) Basophils (%) (Auto) 0.4 % (0.0-2.0) 0.3 % (0.0-2.0) % (0.0-2.0) Sodium Level 142 MMOL/L (136-145) 142 MMOL/L (136-145) 138 MMOL/L (136-145) Potassium Level 4.3 MMOL/L (3.5-5.1) 4.3 MMOL/L (3.5-5.1) 4.5 MMOL/L (3.5-5.1) Chloride Level 108 MMOL/L (98-107) 107 MMOL/L (98-107) 107 MMOL/L (98-107) Carbon Dioxide Level 25 MMOL/L (21-32) 25 MMOL/L (21-32) 24 MMOL/L (21-32) Anion Gap 9 mmol/L (5-15) 10 mmol/L (5-15) 7 mmol/L (5-15) Blood Urea Nitrogen 67 mg/dL (7-18) 62 mg/dL (7-18) 59 mg/dL (7-18) Creatinine 2.5 MG/DL (0.55-1.30) 2.4 MG/DL (0.55-1.30) 2.3 MG/DL (0.55-1.30) Estimat Glomerular Filtration Rate 26.6 mL/min (>60) 27.8 mL/min (>60) 29.2 mL/min (>60) Glucose Level 308 MG/DL (74-106) 216 MG/DL (74-106) 194 MG/DL (74-106) Uric Acid 3.8 MG/DL (2.6-7.2) 3.0 MG/DL (2.6-7.2) 2.8 MG/DL (2.6-7.2) Calcium Level 7.9 MG/DL (8.5-10.1) 8.5 MG/DL (8.5-10.1) 7.6 MG/DL (8.5-10.1) Phosphorus Level 3.7 MG/DL (2.5-4.9) 4.2 MG/DL (2.5-4.9) 3.9 MG/DL (2.5-4.9) Magnesium Level 2.4 MG/DL (1.8-2.4) 2.2 MG/DL (1.8-2.4) 1.9 MG/DL (1.8-2.4) Total Bilirubin 0.2 MG/DL (0.2-1.0) 0.4 MG/DL (0.2-1.0) 0.3 MG/DL (0.2-1.0) Aspartate Amino Transf (AST/SGOT) 36 U/L (15-37) 47 U/L (15-37) 43 U/L (15-37) Alanine Aminotransferase (ALT/SGPT) 46 U/L (12-78) 58 U/L (12-78) 49 U/L (12-78) Alkaline Phosphatase 139 U/L (46-116) 161 U/L (46-116) 115 U/L (46-116) C-Reactive Protein, Quantitative 1.7 mg/dL (0.00-0.90) 1.4 mg/dL (0.00-0.90) 1.1 mg/dL (0.00-0.90) Pro-B-Type Natriuretic Peptide 5368 pg/mL (0-125) 4140 pg/mL (0-125) 4189 pg/mL (0-125) Total Protein 5.2 G/DL (6.4-8.2) 6.1 G/DL (6.4-8.2) 4.7 G/DL (6.4-8.2) Albumin 1.9 G/DL (3.4-5.0) 2.2 G/DL (3.4-5.0) 1.6 G/DL (3.4-5.0) Globulin 3.3 g/dL 3.9 g/dL 3.1 g/dL Albumin/Globulin Ratio 0.6 (1.0-2.7) 0.6 (1.0-2.7) 0.5 (1.0-2.7) Ammonia 17 umol/L (11-32) Troponin I 0.836 ng/mL (0.000-0.056) Random Vancomycin Level 9.0 ug/mL Arterial Blood pH 7.494 (7.350-7.450) Arterial Blood Partial Pressure CO2 29.3 mmHg (35.0-45.0) Arterial Blood Partial Pressure O2 82.7 mmHg (75.0-100.0) Arterial Blood HCO3 22.0 mmol/L (22.0-26.0) Arterial Blood Oxygen Saturation 95.1 % (95-100) Arterial Blood Base Excess -0.7 (-2-2) Benny Test Positive Differential Total Cells Counted 100 Neutrophils % (Manual) 89 % (45-75) Lymphocytes % (Manual) 9 % (20-45) Monocytes % (Manual) 2 % (1-10) Eosinophils % (Manual) 0 % (0-3) Basophils % (Manual) 0 % (0-2) Band Neutrophils 0 % (0-8) Platelet Estimate Adequate Platelet Morphology Normal Hypochromasia 3+ Anisocytosis 1+ Spherocytes 1+ Height (Feet): 6 Height (Inches): 0.00 Weight (Pounds): 275 Objective PHYSICAL EXAMINATION: GENERAL: NAD VITAL SIGNS: Have been reviewed. HEAD AND NECK: Shows no JVD. NG+ TRACH+ LUNGS: Coarse rhonchi. CARDIOVASCULAR: Shows regular S1 and S2 with no gallop or murmur. ABDOMEN: Soft. EXTREMITIES: No pitting edema. Kleynberg,Chan L. MD Feb 19, 2019 13:29
--- NOTE | 2019-02-19 14:00 | NUR ---
NURSE NOTES: Wasted remaining Fentanyl and Versed in med RX destroyer and disposed the bags in purple container under the sink in med room. Witnessed by TESSA Ruelas.
--- NOTE | 2019-02-19 14:52 | NUR ---
NURSE NOTES: Patient agitated, restless, trying to get out of bed. Repositioned patient multiple times but patient still trying to get out of bed. Denies pain. Wheezing, SOB. Notified Dr. Meredith, received orders for stat abg and BIPAP 15/5 PRN and titrate FIo2 to keep Spo2 >92%. Read back given and verified.
--- NOTE | 2019-02-19 15:05 | Cardiac Electrophysiology PN ---
Assessment/Plan Assessment/Plan 1. Non-ST elevation myocardial infarction with peak troponin of more than 10. Down to 2 , up to 7 and down to 3.5 again . EKG shows nonspecific ST-T wave abnormalities. Continue aspirin, Lipitor, Imdur and metoprolol 100 mg b.i.d. Consider cardiac catheterization after is stabilized. 2. Hypertension. Continue metoprolol 100 mg b.i.d., Imdur 30 mg daily and increase hydralazine to 100 q 8 hr 3. Respiratory failure due to Multilobar Pneumonia. 4. Hyperlipidemia. On Lipitor. 5. Human immunodeficiency virus. On anti-retroviral therapy with undetectable viral load. 6. ARF Cr 3.5. Cr down to 2.3 DW RN Subjective Subjective In ICU just extubated.. Off pressors. Still at times agitated . Off Fentanyl and Versed drip Objective Last 24 Hour Vital Signs Date Time Temp Pulse Resp B/P (MAP) Pulse Ox O2 Delivery O2 Flow Rate FiO2 02/19/19 14:48 102 16 95 Cool Aerosol 50 02/19/19 14:45 176/76 02/19/19 14:30 103 26 179/89 (119) 99 02/19/19 14:00 105 26 176/76 (109) 99 02/19/19 13:30 105 30 178/98 (124) 100 02/19/19 13:17 143/71 02/19/19 13:09 T-piece 10.0 50 02/19/19 13:07 95 Cool Aerosol 10.0 50 02/19/19 13:05 15.0 50 02/19/19 13:00 104 23 149/85 (106) 98 02/19/19 12:52 143/71 02/19/19 12:52 143/71 02/19/19 12:30 102 21 189/104 (132) 97 02/19/19 12:00 85 30 100 Mechanical Ventilator 40 02/19/19 12:00 103 02/19/19 12:00 30 Mechanical Ventilator 40 02/19/19 12:00 21 Mechanical Ventilator 40 02/19/19 12:00 Mechanical Ventilator Mechanical Ventilator 02/19/19 12:00 97.1 77 30 161/78 (105) 100 02/19/19 11:41 83 30 100 Mechanical Ventilator 40 02/19/19 11:06 83 30 40 02/19/19 11:00 Endotracheal Tube 40 02/19/19 11:00 30 Mechanical Ventilator 40 02/19/19 11:00 77 30 145/72 (96) 100 02/19/19 10:30 78 30 165/75 (105) 100 02/19/19 10:00 30 Mechanical Ventilator 40 02/19/19 10:00 30 Mechanical Ventilator 40 02/19/19 10:00 87 30 143/71 (95) 100 02/19/19 09:30 104 30 160/74 (102) 97 02/19/19 09:11 108 186/111 02/19/19 09:11 104 186/111 02/19/19 09:03 40 02/19/19 09:00 115 30 183/96 (125) 97 02/19/19 09:00 30 Mechanical Ventilator 40 02/19/19 09:00 35 Mechanical Ventilator 40 02/19/19 08:45 88 31 40 02/19/19 08:30 78 30 186/111 (136) 97 02/19/19 08:00 40 02/19/19 08:00 18 Mechanical Ventilator 40 02/19/19 08:00 18 Mechanical Ventilator 40 02/19/19 08:00 84 02/19/19 08:00 93 30 187/84 (118) 99 02/19/19 08:00 Mechanical Ventilator 02/19/19 07:03 74 30 99 Mechanical Ventilator 40 02/19/19 07:00 16 Mechanical Ventilator 40 02/19/19 07:00 16 Mechanical Ventilator 40 02/19/19 07:00 96.8 81 30 159/67 (97) 99 02/19/19 06:53 68 30 96 Mechanical Ventilator 40 02/19/19 06:40 68 30 40 02/19/19 06:30 69 30 134/52 (79) 97 02/19/19 06:00 72 30 133/51 (78) 95 02/19/19 06:00 30 Mechanical Ventilator 40 02/19/19 06:00 30 Mechanical Ventilator 40 02/19/19 05:30 79 30 143/61 (88) 99 02/19/19 05:18 79 30 40 40 02/19/19 05:01 137/109 02/19/19 05:01 137/109 02/19/19 05:01 137/109 02/19/19 05:00 30 Mechanical Ventilator 40 02/19/19 05:00 30 Mechanical Ventilator 40 02/19/19 05:00 77 30 142/62 (88) 100 02/19/19 04:30 88 30 137/109 (118) 97 02/19/19 04:00 40 02/19/19 04:00 Mechanical Ventilator 02/19/19 04:00 75 02/19/19 04:00 99.2 85 30 157/90 (112) 94 02/19/19 04:00 30 Mechanical Ventilator 40 02/19/19 04:00 30 Mechanical Ventilator 40 02/19/19 03:30 69 30 129/51 (77) 98 02/19/19 03:29 69 30 100 Mechanical Ventilator 40 02/19/19 03:20 69 30 96 Mechanical Ventilator 40 02/19/19 03:19 69 30 40 40 02/19/19 03:00 30 Mechanical Ventilator 40 02/19/19 03:00 30 Mechanical Ventilator 40 02/19/19 03:00 70 30 133/54 (80) 98 02/19/19 02:30 75 30 142/62 (88) 99 02/19/19 02:00 30 Endotracheal Tube 40 02/19/19 02:00 30 40 02/19/19 02:00 82 30 148/75 (99) 100 02/19/19 01:30 67 30 128/52 (77) 95 02/19/19 01:00 67 30 125/50 (75) 95 02/19/19 01:00 30 40 02/19/19 01:00 30 40 02/19/19 00:55 67 30 40 40 02/19/19 00:30 69 30 137/60 (85) 96 02/19/19 00:00 69 02/19/19 00:00 Mechanical Ventilator 02/19/19 00:00 40 02/19/19 00:00 99.5 76 30 148/61 (90) 99 02/19/19 00:00 30 Mechanical Ventilator 40 02/19/19 00:00 30 Mechanical Ventilator 40 02/18/19 23:30 71 30 139/63 (88) 96 02/18/19 23:22 30 40 02/18/19 23:21 131/57 02/18/19 23:21 131/57 02/18/19 23:20 72 30 100 Mechanical Ventilator 40 02/18/19 23:11 67 30 100 Mechanical Ventilator 40 02/18/19 23:10 67 30 40 40 02/18/19 23:00 69 30 131/57 (81) 98 02/18/19 23:00 30 Mechanical Ventilator 40 02/18/19 23:00 30 Mechanical Ventilator 40 02/18/19 22:30 71 30 134/66 (88) 97 02/18/19 22:00 30 Mechanical Ventilator 40 02/18/19 22:00 30 Mechanical Ventilator 40 02/18/19 22:00 69 30 143/66 (91) 98 02/18/19 21:30 143/67 02/18/19 21:30 74 30 151/86 (107) 97 02/18/19 21:15 74 30 40 40 02/18/19 21:00 77 28 143/67 (92) 97 02/18/19 21:00 30 Mechanical Ventilator 40 02/18/19 21:00 30 Mechanical Ventilator 40 02/18/19 20:30 84 22 148/73 (98) 98 02/18/19 20:13 82 144/59 02/18/19 20:00 Mechanical Ventilator 02/18/19 20:00 30 Mechanical Ventilator 40 02/18/19 20:00 30 Mechanical Ventilator 40 02/18/19 20:00 78 02/18/19 20:00 99.1 77 23 132/56 (81) 98 02/18/19 20:00 40 02/18/19 19:30 84 22 143/64 (90) 98 02/18/19 19:02 82 30 100 Mechanical Ventilator 40 02/18/19 19:01 85 30 100 Mechanical Ventilator 40 02/18/19 19:00 88 30 144/59 (87) 100 02/18/19 19:00 30 Mechanical Ventilator 40 02/18/19 19:00 30 Mechanical Ventilator 40 02/18/19 18:59 85 30 40 40 02/18/19 18:33 149/61 02/18/19 18:33 149/61 02/18/19 18:32 30 Mechanical Ventilator 40 02/18/19 18:30 80 29 147/59 (88) 100 02/18/19 18:00 79 29 136/49 (78) 98 02/18/19 18:00 30 Mechanical Ventilator 40 02/18/19 18:00 30 Mechanical Ventilator 40 02/18/19 17:30 84 27 161/72 (101) 98 02/18/19 17:27 88 30 40 02/18/19 17:00 21 Mechanical Ventilator 40 02/18/19 17:00 22 Mechanical Ventilator 40 02/18/19 17:00 75 21 135/58 (83) 99 02/18/19 16:30 69 26 130/54 (79) 99 02/18/19 16:00 98.5 72 30 138/62 (87) 100 02/18/19 16:00 40 02/18/19 16:00 22 Mechanical Ventilator 40 02/18/19 16:00 22 Mechanical Ventilator 40 02/18/19 16:00 72 02/18/19 16:00 Mechanical Ventilator Mechanical Ventilator 02/18/19 15:51 30 Mechanical Ventilator 40 02/18/19 15:30 70 30 131/63 (85) 100 02/18/19 15:24 68 30 100 Mechanical Ventilator 40 02/18/19 15:10 69 25 99 Mechanical Ventilator 40 02/18/19 15:10 69 30 40 Intake and Output 02/18/19 02/19/19 19:00 07:00 Intake Total 2768.750 ml 1710.0 ml Output Total 1350 ml 1825 ml Balance 1418.750 ml -115.0 ml Free Water 210 ml 70 ml IV Total 2042.750 ml 1167.0 ml Tube Feeding 516 ml 473 ml Output Urine Total 1350 ml 1825 ml Laboratory Tests Test 02/19/19 05:00 White Blood Count 5.7 K/UL (4.8-10.8) Red Blood Count 2.84 M/UL (4.70-6.10) L Hemoglobin 7.9 G/DL (14.2-18.0) L Hematocrit 24.3 % (42.0-52.0) L Mean Corpuscular Volume 86 FL (80-99) Mean Corpuscular Hemoglobin 28.0 PG (27.0-31.0) Mean Corpuscular Hemoglobin Concent 32.6 G/DL (32.0-36.0) Red Cell Distribution Width 17.2 % (11.6-14.8) H Platelet Count 202 K/UL (150-450) Mean Platelet Volume 5.9 FL (6.5-10.1) L Neutrophils (%) (Auto) % (45.0-75.0) Lymphocytes (%) (Auto) % (20.0-45.0) Monocytes (%) (Auto) % (1.0-10.0) Eosinophils (%) (Auto) % (0.0-3.0) Basophils (%) (Auto) % (0.0-2.0) Differential Total Cells Counted 100 Neutrophils % (Manual) 89 % (45-75) H Lymphocytes % (Manual) 9 % (20-45) L Monocytes % (Manual) 2 % (1-10) Eosinophils % (Manual) 0 % (0-3) Basophils % (Manual) 0 % (0-2) Band Neutrophils 0 % (0-8) Platelet Estimate Adequate Platelet Morphology Normal Hypochromasia 3+ Anisocytosis 1+ Spherocytes 1+ Sodium Level 138 MMOL/L (136-145) Potassium Level 4.5 MMOL/L (3.5-5.1) Chloride Level 107 MMOL/L (98-107) Carbon Dioxide Level 24 MMOL/L (21-32) Anion Gap 7 mmol/L (5-15) Blood Urea Nitrogen 59 mg/dL (7-18) H Creatinine 2.3 MG/DL (0.55-1.30) H Estimat Glomerular Filtration Rate 29.2 mL/min (>60) Glucose Level 194 MG/DL (74-106) H Uric Acid 2.8 MG/DL (2.6-7.2) Calcium Level 7.6 MG/DL (8.5-10.1) L Phosphorus Level 3.9 MG/DL (2.5-4.9) Magnesium Level 1.9 MG/DL (1.8-2.4) Total Bilirubin 0.3 MG/DL (0.2-1.0) Aspartate Amino Transf (AST/SGOT) 43 U/L (15-37) H Alanine Aminotransferase (ALT/SGPT) 49 U/L (12-78) Alkaline Phosphatase 115 U/L (46-116) C-Reactive Protein, Quantitative 1.1 mg/dL (0.00-0.90) H Pro-B-Type Natriuretic Peptide 4189 pg/mL (0-125) H Total Protein 4.7 G/DL (6.4-8.2) L Albumin 1.6 G/DL (3.4-5.0) L Globulin 3.1 g/dL Albumin/Globulin Ratio 0.5 (1.0-2.7) L Objective HEAD AND NECK: No JVD. LUNGS: Coarse rhonchi. CARDIOVASCULAR: Regular S1 and S2 with no gallop or murmur. ABDOMEN: Soft. EXTREMITIES: No pitting edema. Murray Francois MD Feb 19, 2019 15:05
[2019-02-19] MEDS ORDERED: LORazepam 1mg tab ORAL PRN (15:15)
--- NOTE | 2019-02-19 15:27 | NUR ---
NURSE NOTES: pt wouldn't let RT draw blood for ABG, pulling on restraints and yelling "get off me, let me go". Received orders for ativan 1mg PO q4hr PRN per Dr. Meredith. Read back given and verified. SPo2 80-86%, will place him on BIPAP. Addendum: 02/19/19 at 1634 by DORA KENT RN Per Dr. Meredith, patient is ok on cool aersol Fio2 50% for now - no BIPAP.
--- NOTE | 2019-02-19 15:31 | Surgery Progress Note ---
Surgery Progress Note Subjective Procedure Performed left femoral temporary Hemodialysis catheter insertion Additional Comments extubated doing well on face mask exam stable anasarca improving Objective Last 24 Hour Vital Signs Date Time Temp Pulse Resp B/P (MAP) Pulse Ox O2 Delivery O2 Flow Rate FiO2 02/19/19 15:00 100 27 159/88 (111) 84 02/19/19 14:58 102 16 96 Cool Aerosol 10.0 50 02/19/19 14:48 102 16 95 Cool Aerosol 50 02/19/19 14:45 176/76 02/19/19 14:30 103 26 179/89 (119) 99 02/19/19 14:00 105 26 176/76 (109) 99 02/19/19 13:30 105 30 178/98 (124) 100 02/19/19 13:17 143/71 02/19/19 13:09 T-piece 10.0 50 02/19/19 13:07 95 Cool Aerosol 10.0 50 02/19/19 13:05 15.0 50 02/19/19 13:00 104 23 149/85 (106) 98 02/19/19 12:52 143/71 02/19/19 12:52 143/71 02/19/19 12:30 102 21 189/104 (132) 97 02/19/19 12:00 85 30 100 Mechanical Ventilator 40 02/19/19 12:00 103 02/19/19 12:00 30 Mechanical Ventilator 40 02/19/19 12:00 21 Mechanical Ventilator 40 02/19/19 12:00 Mechanical Ventilator Mechanical Ventilator 02/19/19 12:00 97.1 77 30 161/78 (105) 100 02/19/19 11:41 83 30 100 Mechanical Ventilator 40 02/19/19 11:06 83 30 40 02/19/19 11:00 Endotracheal Tube 40 02/19/19 11:00 30 Mechanical Ventilator 40 02/19/19 11:00 77 30 145/72 (96) 100 02/19/19 10:30 78 30 165/75 (105) 100 02/19/19 10:00 30 Mechanical Ventilator 40 02/19/19 10:00 30 Mechanical Ventilator 40 02/19/19 10:00 87 30 143/71 (95) 100 02/19/19 09:30 104 30 160/74 (102) 97 02/19/19 09:11 108 186/111 02/19/19 09:11 104 186/111 02/19/19 09:03 40 02/19/19 09:00 115 30 183/96 (125) 97 02/19/19 09:00 30 Mechanical Ventilator 40 02/19/19 09:00 35 Mechanical Ventilator 40 02/19/19 08:45 88 31 40 02/19/19 08:30 78 30 186/111 (136) 97 02/19/19 08:00 40 02/19/19 08:00 18 Mechanical Ventilator 40 02/19/19 08:00 18 Mechanical Ventilator 40 02/19/19 08:00 84 02/19/19 08:00 93 30 187/84 (118) 99 02/19/19 08:00 Mechanical Ventilator 02/19/19 07:03 74 30 99 Mechanical Ventilator 40 02/19/19 07:00 16 Mechanical Ventilator 40 02/19/19 07:00 16 Mechanical Ventilator 40 02/19/19 07:00 96.8 81 30 159/67 (97) 99 02/19/19 06:53 68 30 96 Mechanical Ventilator 40 02/19/19 06:40 68 30 40 02/19/19 06:30 69 30 134/52 (79) 97 02/19/19 06:00 72 30 133/51 (78) 95 02/19/19 06:00 30 Mechanical Ventilator 40 02/19/19 06:00 30 Mechanical Ventilator 40 02/19/19 05:30 79 30 143/61 (88) 99 02/19/19 05:18 79 30 40 40 02/19/19 05:01 137/109 02/19/19 05:01 137/109 02/19/19 05:01 137/109 02/19/19 05:00 30 Mechanical Ventilator 40 02/19/19 05:00 30 Mechanical Ventilator 40 02/19/19 05:00 77 30 142/62 (88) 100 02/19/19 04:30 88 30 137/109 (118) 97 02/19/19 04:00 40 02/19/19 04:00 Mechanical Ventilator 02/19/19 04:00 75 02/19/19 04:00 99.2 85 30 157/90 (112) 94 02/19/19 04:00 30 Mechanical Ventilator 40 02/19/19 04:00 30 Mechanical Ventilator 40 02/19/19 03:30 69 30 129/51 (77) 98 02/19/19 03:29 69 30 100 Mechanical Ventilator 40 02/19/19 03:20 69 30 96 Mechanical Ventilator 40 02/19/19 03:19 69 30 40 40 02/19/19 03:00 30 Mechanical Ventilator 40 02/19/19 03:00 30 Mechanical Ventilator 40 02/19/19 03:00 70 30 133/54 (80) 98 02/19/19 02:30 75 30 142/62 (88) 99 02/19/19 02:00 30 Endotracheal Tube 40 02/19/19 02:00 30 40 02/19/19 02:00 82 30 148/75 (99) 100 02/19/19 01:30 67 30 128/52 (77) 95 02/19/19 01:00 67 30 125/50 (75) 95 02/19/19 01:00 30 40 02/19/19 01:00 30 40 02/19/19 00:55 67 30 40 40 02/19/19 00:30 69 30 137/60 (85) 96 02/19/19 00:00 69 02/19/19 00:00 Mechanical Ventilator 02/19/19 00:00 40 02/19/19 00:00 99.5 76 30 148/61 (90) 99 02/19/19 00:00 30 Mechanical Ventilator 40 02/19/19 00:00 30 Mechanical Ventilator 40 02/18/19 23:30 71 30 139/63 (88) 96 02/18/19 23:22 30 40 02/18/19 23:21 131/57 02/18/19 23:21 131/57 02/18/19 23:20 72 30 100 Mechanical Ventilator 40 02/18/19 23:11 67 30 100 Mechanical Ventilator 40 02/18/19 23:10 67 30 40 40 02/18/19 23:00 69 30 131/57 (81) 98 02/18/19 23:00 30 Mechanical Ventilator 40 02/18/19 23:00 30 Mechanical Ventilator 40 02/18/19 22:30 71 30 134/66 (88) 97 02/18/19 22:00 30 Mechanical Ventilator 40 02/18/19 22:00 30 Mechanical Ventilator 40 02/18/19 22:00 69 30 143/66 (91) 98 02/18/19 21:30 143/67 02/18/19 21:30 74 30 151/86 (107) 97 02/18/19 21:15 74 30 40 40 02/18/19 21:00 77 28 143/67 (92) 97 02/18/19 21:00 30 Mechanical Ventilator 40 02/18/19 21:00 30 Mechanical Ventilator 40 02/18/19 20:30 84 22 148/73 (98) 98 02/18/19 20:13 82 144/59 02/18/19 20:00 Mechanical Ventilator 02/18/19 20:00 30 Mechanical Ventilator 40 02/18/19 20:00 30 Mechanical Ventilator 40 02/18/19 20:00 78 02/18/19 20:00 99.1 77 23 132/56 (81) 98 02/18/19 20:00 40 02/18/19 19:30 84 22 143/64 (90) 98 02/18/19 19:02 82 30 100 Mechanical Ventilator 40 02/18/19 19:01 85 30 100 Mechanical Ventilator 40 02/18/19 19:00 88 30 144/59 (87) 100 02/18/19 19:00 30 Mechanical Ventilator 40 02/18/19 19:00 30 Mechanical Ventilator 40 02/18/19 18:59 85 30 40 40 02/18/19 18:33 149/61 02/18/19 18:33 149/61 02/18/19 18:32 30 Mechanical Ventilator 40 02/18/19 18:30 80 29 147/59 (88) 100 02/18/19 18:00 79 29 136/49 (78) 98 02/18/19 18:00 30 Mechanical Ventilator 40 02/18/19 18:00 30 Mechanical Ventilator 40 02/18/19 17:30 84 27 161/72 (101) 98 02/18/19 17:27 88 30 40 02/18/19 17:00 21 Mechanical Ventilator 40 02/18/19 17:00 22 Mechanical Ventilator 40 02/18/19 17:00 75 21 135/58 (83) 99 02/18/19 16:30 69 26 130/54 (79) 99 02/18/19 16:00 98.5 72 30 138/62 (87) 100 02/18/19 16:00 40 02/18/19 16:00 22 Mechanical Ventilator 40 02/18/19 16:00 22 Mechanical Ventilator 40 02/18/19 16:00 72 02/18/19 16:00 Mechanical Ventilator Mechanical Ventilator 02/18/19 15:51 30 Mechanical Ventilator 40 02/18/19 15:30 70 30 131/63 (85) 100 I&O Intake and Output 02/18/19 02/19/19 19:00 07:00 Intake Total 2768.750 ml 1710.0 ml Output Total 1350 ml 1825 ml Balance 1418.750 ml -115.0 ml Free Water 210 ml 70 ml IV Total 2042.750 ml 1167.0 ml Tube Feeding 516 ml 473 ml Output Urine Total 1350 ml 1825 ml Dressing: saturated Wound: clean Cardiovascular: RSR Respiratory: clear, decreased breath sounds Abdomen: soft, present bowel sounds, non-distended Extremities: edema, no cyanosis Laboratory Tests Test 02/19/19 05:00 White Blood Count 5.7 K/UL (4.8-10.8) Red Blood Count 2.84 M/UL (4.70-6.10) L Hemoglobin 7.9 G/DL (14.2-18.0) L Hematocrit 24.3 % (42.0-52.0) L Mean Corpuscular Volume 86 FL (80-99) Mean Corpuscular Hemoglobin 28.0 PG (27.0-31.0) Mean Corpuscular Hemoglobin Concent 32.6 G/DL (32.0-36.0) Red Cell Distribution Width 17.2 % (11.6-14.8) H Platelet Count 202 K/UL (150-450) Mean Platelet Volume 5.9 FL (6.5-10.1) L Neutrophils (%) (Auto) % (45.0-75.0) Lymphocytes (%) (Auto) % (20.0-45.0) Monocytes (%) (Auto) % (1.0-10.0) Eosinophils (%) (Auto) % (0.0-3.0) Basophils (%) (Auto) % (0.0-2.0) Differential Total Cells Counted 100 Neutrophils % (Manual) 89 % (45-75) H Lymphocytes % (Manual) 9 % (20-45) L Monocytes % (Manual) 2 % (1-10) Eosinophils % (Manual) 0 % (0-3) Basophils % (Manual) 0 % (0-2) Band Neutrophils 0 % (0-8) Platelet Estimate Adequate Platelet Morphology Normal Hypochromasia 3+ Anisocytosis 1+ Spherocytes 1+ Sodium Level 138 MMOL/L (136-145) Potassium Level 4.5 MMOL/L (3.5-5.1) Chloride Level 107 MMOL/L (98-107) Carbon Dioxide Level 24 MMOL/L (21-32) Anion Gap 7 mmol/L (5-15) Blood Urea Nitrogen 59 mg/dL (7-18) H Creatinine 2.3 MG/DL (0.55-1.30) H Estimat Glomerular Filtration Rate 29.2 mL/min (>60) Glucose Level 194 MG/DL (74-106) H Uric Acid 2.8 MG/DL (2.6-7.2) Calcium Level 7.6 MG/DL (8.5-10.1) L Phosphorus Level 3.9 MG/DL (2.5-4.9) Magnesium Level 1.9 MG/DL (1.8-2.4) Total Bilirubin 0.3 MG/DL (0.2-1.0) Aspartate Amino Transf (AST/SGOT) 43 U/L (15-37) H Alanine Aminotransferase (ALT/SGPT) 49 U/L (12-78) Alkaline Phosphatase 115 U/L (46-116) C-Reactive Protein, Quantitative 1.1 mg/dL (0.00-0.90) H Pro-B-Type Natriuretic Peptide 4189 pg/mL (0-125) H Total Protein 4.7 G/DL (6.4-8.2) L Albumin 1.6 G/DL (3.4-5.0) L Globulin 3.1 g/dL Albumin/Globulin Ratio 0.5 (1.0-2.7) L Plan Problems: (1) Hypoxia Assessment & Plan: Extensive bilateral upper lobe infiltrates likely inflammatory/infectious. Correlate clinically. Tuberculosis is not excludable. Bilateral pleural effusions. Endotracheal tube and nasogastric tube in good position Atherosclerotic vascular disease (2) Respiratory distress Assessment & Plan: extubated doing better (3) Sepsis Assessment & Plan: Sepsis with tachycardia, leukocytosis, abnormal labs, respiratory distress on vent support via ET tube now extubated. acidosis. Cont IV abx CXR noted appreciate ICU team care abnormal lft's US noted will likely remove line soon now that improving will cont to follow with recs trend labs Rx as written Moiz Costa Feb 19, 2019 15:31
--- NOTE | 2019-02-19 16:00 | NUR ---
NURSE NOTES: Ativan 1mg PO given, able to draw ABG. Results: ph 7.353, pco2 38.0, po2 67.6, hco3 [address] Meredith, received orders to keep fio2 @ 50% as patient po2 is >60. Patient is still restless, SPo2 83-92%, RR 30. Patient TF clamped for aspiration risk, MD aware. Patient is diaphoretic, afebrile and blood sugar is 130 mg/dl.
--- NOTE | 2019-02-19 18:20 | NUR ---
NURSE NOTES: Blood sugar 180 mg/dl, 6 units given per sliding scale plus 10 units of novolog. Patient is restless. Turned and repositioned. Spo2 94%, RR 26. Audible wheezing heard upon inspiration. Patient observed trying to remove OGT and oxygen, restraints still in place. Skin in tact. IV abx infusing well.
--- NOTE | 2019-02-19 19:12 | NUR ---
HAND-OFF: Report given to TESSA Najera using SBAR.
--- NOTE | 2019-02-19 20:00 | NUR ---
NURSE NOTES: Patient received from Suze Case RN. Patient is recently extubated today around 1300. Currently on Venturi Mask at 50% FiO2. Patient is saturating around 90%. Audible wheezing can be heard. Patient has L femoral João with T-port for IV access. Right wrist 20G IV access also noted. Patient has generalized edema throughout body. Bilateral soft wrist restraints noted. Pulses are noted and skin is intact.
--- NOTE | 2019-02-19 20:30 | NUR ---
NURSE NOTES: Dr Douglas at bedside rounding. Order for Ativan 2mg Q2 PRN for restless and agitated.
[2019-02-19] MEDS: Maxitrol Opth Oint 3.5gm BOTH EYES SCH (20:38)
[2019-02-19] MEDS: Dyna-Hex 2% Top Sol 2oz TOPIC SCH (20:38)
[2019-02-19] MEDS: Miralax 17gm pkt ORAL SCH (20:39)
[2019-02-19] MEDS: Enoxaparin 40mg Inj SUBQ SCH (20:40)
--- NOTE | 2019-02-19 20:55 | NUR ---
RESPIRATORY NOTE: Placed pt on bipap setting of 12/5 FIO2 75% via facial mask due to labored breathing. Foam tape underneath the mask. Bipap plugged into red outlet. Will continue to monitor pt's progress. TESSA Najera aware.
--- NOTE | 2019-02-19 21:00 | NUR ---
NURSE NOTES: Placed pt on bipap setting of 12/5 FIO2 75% via facial mask due to labored breathing. Foam tape underneath the mask. Bipap plugged into red outlet. Will continue to monitor pt's progress
[2019-02-19] MEDS ORDERED: LORazepam Inj 2mg/ml 1ml IV PRN (21:45)
--- NOTE | 2019-02-19 22:00 | NUR ---
NURSE NOTES: Repositioned patient Oral care given Med given FEEDS on hold due to labored breathing, bipap usage and high risk for aspiration precautions at this time.
--- NOTE | 2019-02-19 23:48 | Neurology Progress Note ---
Interim History Interim History ROS Limited/Unobtainable: Yes Complaints: AMS Events: This Visit was performed on February 19, [address] Mayito Escobar. Objective Physical Exam Last Vital Signs Date Time Temp Pulse Resp B/P (MAP) Pulse Ox O2 Delivery O2 Flow Rate FiO2 02/19/19 22:57 84 29 95 Facial 70 02/19/19 22:00 129/110 (116) 02/19/19 20:00 99.0 02/19/19 19:20 10.0 Laboratory Tests Test 02/19/19 05:00 02/19/19 14:36 White Blood Count 5.7 K/UL (4.8-10.8) Red Blood Count 2.84 M/UL (4.70-6.10) L Hemoglobin 7.9 G/DL (14.2-18.0) L Hematocrit 24.3 % (42.0-52.0) L Mean Corpuscular Volume 86 FL (80-99) Mean Corpuscular Hemoglobin 28.0 PG (27.0-31.0) Mean Corpuscular Hemoglobin Concent 32.6 G/DL (32.0-36.0) Red Cell Distribution Width 17.2 % (11.6-14.8) H Platelet Count 202 K/UL (150-450) Mean Platelet Volume 5.9 FL (6.5-10.1) L Neutrophils (%) (Auto) % (45.0-75.0) Lymphocytes (%) (Auto) % (20.0-45.0) Monocytes (%) (Auto) % (1.0-10.0) Eosinophils (%) (Auto) % (0.0-3.0) Basophils (%) (Auto) % (0.0-2.0) Differential Total Cells Counted 100 Neutrophils % (Manual) 89 % (45-75) H Lymphocytes % (Manual) 9 % (20-45) L Monocytes % (Manual) 2 % (1-10) Eosinophils % (Manual) 0 % (0-3) Basophils % (Manual) 0 % (0-2) Band Neutrophils 0 % (0-8) Platelet Estimate Adequate Platelet Morphology Normal Hypochromasia 3+ Anisocytosis 1+ Spherocytes 1+ Sodium Level 138 MMOL/L (136-145) Potassium Level 4.5 MMOL/L (3.5-5.1) Chloride Level 107 MMOL/L (98-107) Carbon Dioxide Level 24 MMOL/L (21-32) Anion Gap 7 mmol/L (5-15) Blood Urea Nitrogen 59 mg/dL (7-18) H Creatinine 2.3 MG/DL (0.55-1.30) H Estimat Glomerular Filtration Rate 29.2 mL/min (>60) Glucose Level 194 MG/DL (74-106) H Uric Acid 2.8 MG/DL (2.6-7.2) Calcium Level 7.6 MG/DL (8.5-10.1) L Phosphorus Level 3.9 MG/DL (2.5-4.9) Magnesium Level 1.9 MG/DL (1.8-2.4) Total Bilirubin 0.3 MG/DL (0.2-1.0) Aspartate Amino Transf (AST/SGOT) 43 U/L (15-37) H Alanine Aminotransferase (ALT/SGPT) 49 U/L (12-78) Alkaline Phosphatase 115 U/L (46-116) C-Reactive Protein, Quantitative 1.1 mg/dL (0.00-0.90) H Pro-B-Type Natriuretic Peptide 4189 pg/mL (0-125) H Total Protein 4.7 G/DL (6.4-8.2) L Albumin 1.6 G/DL (3.4-5.0) L Globulin 3.1 g/dL Albumin/Globulin Ratio 0.5 (1.0-2.7) L Arterial Blood pH 7.353 (7.350-7.450) Arterial Blood Partial Pressure CO2 38.0 mmHg (35.0-45.0) Arterial Blood Partial Pressure O2 67.6 mmHg (75.0-100.0) L Arterial Blood HCO3 20.7 mmol/L (22.0-26.0) L Arterial Blood Oxygen Saturation 91.2 % (95-100) L Arterial Blood Base Excess -4.4 (-2-2) L Benny Test Positive General: well developed, well nourished, other Head: normocophalic, other Neck: no rigidity EENT: other Neurologic Exam Mental Status: other Speech: other Language: other Cranial Nerve II: other Cranial Nerves III, IV, : other Cranial Nerve V: other Cranial Nerve VII: other Cranial Nerve VIII: other Cranial Nerve IX: other Cranial Nerve X: other Cranial Nerve XI: other Cranial Nerve XII: other Motor System: other Sensory: other Coordination: other Deep Tendon Reflexes: 0 bicep (L), 0 bicep (R), 0 tricep (L), 0 tricep (R), 0 brachioradialis (L), 0 brachioradialis (R), 0 knee (L), 0 knee (R), 0 ankle (L) , 0 ankle (R) Reflexes: mute plantar (L), mute plantar (R) Stance: other Gait: other Objective Diffuse anasarca, non focal exam, arousable and PARKER x 4 AG when sedation is stopped. Otherwise currently on Fentanyl and Versed. 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 (33) acute small R pontomedullary and left cerebellar peduncle strokes. 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 SBP<140 HD as needed prior to weaning vent- likely toxic encephalopathy Na 135-145 - may add water to enteral feeding to resolve this Charlee Whittington N.P. Feb 19, 2019 23:48
--- NOTE | 2019-02-19 23:58 | General Progress Note ---
Assessment/Plan Status: unchanged Assessment/Plan: 58 y Male admitted to the hospital due to fever, shortness of breath and chest pain. # Multilobar pneumonia in patient with HIV- worse # Acute Hypoxemic respiratory failure # ARDS - improved - Broad sp atbx. Will continue Zosyn, Vancomycin and Azithromycin - Bactrim for PCP coverage - Droplet precaution -DCed - Oxygen support - ID consult appreciated. AFB, cocci, hystoplasma, legionella, ordered. . - Patient s/p emergent bronchoscopy given florid ARDS - Extubated today to BiPAP - close monitorins # NSTEMI - EKG with bifascicular block RBB and LAFB, no ST changes. - Trend troponin x3 - ECHO completed with no WMA and preserved EF. Dr. Francois consulted. Consideration for outpatient cath vs possibly myocarditis due to underlying viral infection. No evidence of Takotsubo per TTE. - NGT prn - Pain control with morphine # HIV - Continue HARRT - VL is undetectable per patient report. 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 Date patient seen: Feb 19, 2019 Allergies: Coded Allergies: No Known Allergies (Unverified , 02/05/13) Subjective Pt extubated to BiPAP, saturations acceptable, course breath sounds, BP acceptable, ativan added for agitation, not interactive Objective Last 24 Hour Vital Signs Date Time Temp Pulse Resp B/P (MAP) Pulse Ox O2 Delivery O2 Flow Rate FiO2 02/19/19 22:57 84 29 95 Facial 70 02/19/19 22:00 89 27 129/110 (116) 90 02/19/19 21:39 138/96 02/19/19 21:38 138/96 02/19/19 21:00 95 23 148/92 (110) 98 02/19/19 20:53 101 26 97 Facial 75 02/19/19 20:39 103 138/96 02/19/19 20:00 Bi-pap Bi-pap 02/19/19 20:00 75 02/19/19 20:00 99.0 103 28 159/73 (101) 88 02/19/19 20:00 87 02/19/19 19:20 103 22 88 Cool Aerosol 10.0 50 02/19/19 19:13 86 Cool Aerosol 10.0 50 02/19/19 19:13 109 26 87 Cool Aerosol 50 02/19/19 19:00 104 30 138/96 (110) 86 02/19/19 18:30 104 30 164/88 (113) 89 02/19/19 18:00 101 25 166/78 (107) 93 02/19/19 17:33 159/88 02/19/19 17:30 103 26 179/65 (103) 92 02/19/19 17:00 104 27 159/80 (106) 91 02/19/19 16:30 104 27 150/111 (124) 91 02/19/19 16:00 105 02/19/19 16:00 Venturi Mask Venturi Mask 02/19/19 16:00 15.0 50 02/19/19 16:00 98.1 105 26 148/65 (92) 91 02/19/19 15:30 107 27 167/147 (154) 84 02/19/19 15:00 100 27 159/88 (111) 84 02/19/19 14:58 102 16 96 Cool Aerosol 10.0 50 02/19/19 14:48 102 16 95 Cool Aerosol 50 02/19/19 14:45 176/76 02/19/19 14:30 103 26 179/89 (119) 99 02/19/19 14:00 105 26 176/76 (109) 99 02/19/19 13:30 105 30 178/98 (124) 100 02/19/19 13:17 143/71 02/19/19 13:09 T-piece 10.0 50 02/19/19 13:07 95 Cool Aerosol 10.0 50 02/19/19 13:05 15.0 50 02/19/19 13:00 104 23 149/85 (106) 98 02/19/19 12:52 143/71 02/19/19 12:52 143/71 02/19/19 12:30 102 21 189/104 (132) 97 02/19/19 12:00 85 30 100 Mechanical Ventilator 40 02/19/19 12:00 103 02/19/19 12:00 30 Mechanical Ventilator 40 02/19/19 12:00 21 Mechanical Ventilator 40 02/19/19 12:00 Mechanical Ventilator Mechanical Ventilator 02/19/19 12:00 97.1 77 30 161/78 (105) 100 02/19/19 11:41 83 30 100 Mechanical Ventilator 40 02/19/19 11:06 83 30 40 02/19/19 11:00 Endotracheal Tube 40 02/19/19 11:00 30 Mechanical Ventilator 40 02/19/19 11:00 77 30 145/72 (96) 100 02/19/19 10:30 78 30 165/75 (105) 100 02/19/19 10:00 30 Mechanical Ventilator 40 02/19/19 10:00 30 Mechanical Ventilator 40 02/19/19 10:00 87 30 143/71 (95) 100 02/19/19 09:30 104 30 160/74 (102) 97 02/19/19 09:11 108 186/111 02/19/19 09:11 104 186/111 02/19/19 09:03 40 02/19/19 09:00 115 30 183/96 (125) 97 02/19/19 09:00 30 Mechanical Ventilator 40 02/19/19 09:00 35 Mechanical Ventilator 40 02/19/19 08:45 88 31 40 02/19/19 08:30 78 30 186/111 (136) 97 02/19/19 08:00 40 02/19/19 08:00 18 Mechanical Ventilator 40 02/19/19 08:00 18 Mechanical Ventilator 40 02/19/19 08:00 84 02/19/19 08:00 93 30 187/84 (118) 99 02/19/19 08:00 Mechanical Ventilator 02/19/19 07:03 74 30 99 Mechanical Ventilator 40 02/19/19 07:00 16 Mechanical Ventilator 40 02/19/19 07:00 16 Mechanical Ventilator 40 02/19/19 07:00 96.8 81 30 159/67 (97) 99 02/19/19 06:53 68 30 96 Mechanical Ventilator 40 02/19/19 06:40 68 30 40 02/19/19 06:30 69 30 134/52 (79) 97 02/19/19 06:00 72 30 133/51 (78) 95 02/19/19 06:00 30 Mechanical Ventilator 40 02/19/19 06:00 30 Mechanical Ventilator 40 02/19/19 05:30 79 30 143/61 (88) 99 02/19/19 05:18 79 30 40 40 02/19/19 05:01 137/109 02/19/19 05:01 137/109 02/19/19 05:01 137/109 02/19/19 05:00 30 Mechanical Ventilator 40 02/19/19 05:00 30 Mechanical Ventilator 40 02/19/19 05:00 77 30 142/62 (88) 100 02/19/19 04:30 88 30 137/109 (118) 97 02/19/19 04:00 40 02/19/19 04:00 Mechanical Ventilator 02/19/19 04:00 75 02/19/19 04:00 99.2 85 30 157/90 (112) 94 02/19/19 04:00 30 Mechanical Ventilator 40 02/19/19 04:00 30 Mechanical Ventilator 40 02/19/19 03:30 69 30 129/51 (77) 98 02/19/19 03:29 69 30 100 Mechanical Ventilator 40 02/19/19 03:20 69 30 96 Mechanical Ventilator 40 02/19/19 03:19 69 30 40 40 02/19/19 03:00 30 Mechanical Ventilator 40 02/19/19 03:00 30 Mechanical Ventilator 40 02/19/19 03:00 70 30 133/54 (80) 98 02/19/19 02:30 75 30 142/62 (88) 99 02/19/19 02:00 30 Endotracheal Tube 40 02/19/19 02:00 30 40 02/19/19 02:00 82 30 148/75 (99) 100 02/19/19 01:30 67 30 128/52 (77) 95 02/19/19 01:00 67 30 125/50 (75) 95 02/19/19 01:00 30 40 02/19/19 01:00 30 40 02/19/19 00:55 67 30 40 40 02/19/19 00:30 69 30 137/60 (85) 96 02/19/19 00:00 69 02/19/19 00:00 Mechanical Ventilator 02/19/19 00:00 40 02/19/19 00:00 99.5 76 30 148/61 (90) 99 02/19/19 00:00 30 Mechanical Ventilator 40 02/19/19 00:00 30 Mechanical Ventilator 40 Intake and Output 02/18/19 02/19/19 18:59 06:59 Intake Total 2825.500 ml 1779.25 ml Output Total 1500 ml 1675 ml Balance 1325.500 ml 104.25 ml Free Water 210 ml 70 ml IV Total 2056.500 ml 1236.25 ml Tube Feeding 559 ml 473 ml Output Urine Total 1500 ml 1675 ml Laboratory Tests 02/19/19 05:00: White Blood Count 5.7, Red Blood Count 2.84L, Hemoglobin 7.9L, Hematocrit 24.3L , Mean Corpuscular Volume 86, Mean Corpuscular Hemoglobin 28.0, Mean Corpuscular Hemoglobin Concent 32.6, Red Cell Distribution Width 17.2H, Platelet Count 202, Mean Platelet Volume 5.9L, Neutrophils (%) (Auto) , Lymphocytes (%) (Auto) , Monocytes (%) (Auto) , Eosinophils (%) (Auto) , Basophils (%) (Auto) , Differential Total Cells Counted 100, Neutrophils % ( Manual) 89H, Lymphocytes % (Manual) 9L, Monocytes % (Manual) 2, Eosinophils % ( Manual) 0, Basophils % (Manual) 0, Band Neutrophils 0, Platelet Estimate Adequate, Platelet Morphology Normal, Hypochromasia 3+, Anisocytosis 1+, Spherocytes 1+, Sodium Level 138, Potassium Level 4.5, Chloride Level 107, Carbon Dioxide Level 24, Anion Gap 7, Blood Urea Nitrogen 59H, Creatinine 2.3H, Estimat Glomerular Filtration Rate 29.2, Glucose Level 194H, Uric Acid 2.8, Calcium Level 7.6L, Phosphorus Level 3.9, Magnesium Level 1.9, Total Bilirubin 0.3, Aspartate Amino Transf (AST/SGOT) 43H, Alanine Aminotransferase (ALT/SGPT) 49, Alkaline Phosphatase 115, C-Reactive Protein, Quantitative 1.1H, Pro-B-Type Natriuretic Peptide 4189H, Total Protein 4.7L, Albumin 1.6L, Globulin 3.1, Albumin/Globulin Ratio 0.5L 02/19/19 14:36: Arterial Blood pH 7.353, Arterial Blood Partial Pressure CO2 38.0, Arterial Blood Partial Pressure O2 67.6L, Arterial Blood HCO3 20.7L, Arterial Blood Oxygen Saturation 91.2L, Arterial Blood Base Excess -4.4L, Benny Test Positive Height (Feet): 6 Height (Inches): 0.00 Weight (Pounds): 275 Objective General Appearance: extubated, mod agitation EENT: extubated on bipap Neck: non-tender, normal alignment Cardiovascular: normal peripheral pulses, normal rate Respiratory/Chest: chest wall non-tender, lungs clear Abdomen: normal bowel sounds, non tender Extremities: normal range of motion, non-tender Edema: trace edema Neurologic: citrus 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
[2019-02-20] VITALS (27 sets, daily range): BP systolic 105–176; BP diastolic 59–125
--- NOTE | 2019-02-20 | NUR ---
NURSE NOTES: Patient repositioned FEEDS remains on hold due to labored breathing, bipap usage and high risk for aspiration precautions at this time. BP stable Oral care provided.
[2019-02-20] MEDS: NovoLOG Insulin Flexpen SUBQ SCH ×8 (00:16→20:59)
[2019-02-20] MEDS: SULFAMETHOXAZOLE IV SCH ×2 (00:17→13:39)
[2019-02-20] MEDS: D5W IV SCH ×2 (00:17→13:39)
[2019-02-20] MEDS: TRIMETHOPRIM IV SCH ×2 (00:17→13:39)
--- NOTE | 2019-02-20 01:00 | NUR ---
NURSE NOTES: FEEDS on hold due to labored breathing, bipap usage and high risk for aspiration precautions at this time. Glucose noted to be 103, no coverage provided.
--- NOTE | 2019-02-20 02:00 | NUR ---
NURSE NOTES: Central line dressing changed using aseptic technique
[2019-02-20] MEDS: Albuterol/Ipratropium 3ml neb HHN SCH ×6 (02:39→22:55)
--- NOTE | 2019-02-20 04:00 | NUR ---
NURSE NOTES: Cleaned and repositioned Patient remains on BIPAP FiO2 60% Saturating at 100%.
[2019-02-20] MEDS: Piperacillin/Tazobactam 3.375 GM in NS 110 ML IVPB SCH (05:14)
[2019-02-20] MEDS: HydrALAZINE 50mg tab NG SCH ×3 (05:15→22:42)
[2019-02-20] MEDS: Lacri-Lube Opth Oint 3.5gm BOTH EYES SCH ×4 (05:16→20:38)
--- NOTE | 2019-02-20 06:00 | NUR ---
NURSE NOTES: Patient repositioned Patient restless and agitated at times. Feeds restarted Rectal tube remains intact
[2019-02-20 06:20] LABS: HEMATOCRIT 28.1 % (42.0-52.0); HEMOGLOBIN 9.1 G/DL (14.2-18.0); MEAN CORPUSCULAR VOLUME 87 FL (80-99); PLATELET COUNT 262 K/UL (150-450); RED BLOOD COUNT 3.23 M/UL (4.70-6.10); RED CELL DISTRIBUTION WIDTH 17.4 % (11.6-14.8); WHITE BLOOD COUNT 17.8 K/UL (4.8-10.8)
--- NOTE | 2019-02-20 06:44 | General Progress Note ---
Assessment/Plan Problem List: (1) ISH (acute kidney injury) ICD Codes: N17.9 - Acute kidney failure, unspecified SNOMED: 67661128 (2) Uncontrolled type 2 diabetes mellitus with chronic kidney disease ICD Codes: E11.22 - Type 2 diabetes mellitus with diabetic chronic kidney disease; E11.65 - Type 2 diabetes mellitus with hyperglycemia SNOMED: 92445444, 816625993, 547179148 (3) HIV disease ICD Codes: B20 - Human immunodeficiency virus [HIV] disease SNOMED: 82234520 (4) Respiratory distress ICD Codes: R06.03 - Acute respiratory distress SNOMED: 266657677 Status: unchanged Assessment/Plan: - DC Novolog 10 units every 4 hours - start Levemir 10 units bid - continue Novolog sliding scale resistant scale every 4 hours Subjective ROS Limited/Unobtainable: Yes Allergies: Coded Allergies: No Known Allergies (Unverified , 02/05/13) Subjective events noted glycemic control improved Item Value Date Time Bedside Blood Glucose 86 mg/dl 02/20/19 0500 Bedside Blood Glucose 103 mg/dl 02/20/19 0016 Bedside Blood Glucose 182 mg/dl H 02/19/19 2042 Bedside Blood Glucose 180 mg/dl H 02/19/19 1736 Bedside Blood Glucose 130 mg/dl H 02/19/19 1318 Bedside Blood Glucose 159 mg/dl H 02/19/19 0913 Objective Last 24 Hour Vital Signs Date Time Temp Pulse Resp B/P (MAP) Pulse Ox O2 Delivery O2 Flow Rate FiO2 02/20/19 06:00 86 25 133/69 (90) 100 02/20/19 05:16 140/84 02/20/19 05:15 140/84 02/20/19 05:14 140/84 02/20/19 05:02 88 28 97 Facial 60 02/20/19 05:00 85 28 149/81 (103) 100 02/20/19 04:30 85 20 154/68 (96) 100 02/20/19 04:00 60 02/20/19 04:00 99.5 90 25 146/68 (94) 98 02/20/19 04:00 86 02/20/19 04:00 Bi-pap Bi-pap 02/20/19 03:00 91 31 159/80 (106) 99 02/20/19 02:57 91 29 98 Bi-Pap 60 02/20/19 02:39 87 28 94 Bi-Pap 65 02/20/19 02:37 87 29 94 Facial 65 02/20/19 02:00 85 28 152/76 (101) 93 02/20/19 01:30 84 27 140/84 (102) 85 02/20/19 01:02 88 27 91 Facial 70 02/20/19 01:00 86 28 136/90 (105) 94 02/20/19 00:30 87 29 137/70 (92) 90 02/20/19 00:16 149/86 02/20/19 00:00 Bi-pap Bi-pap 02/20/19 00:00 70 02/20/19 00:00 98.6 89 29 149/86 (107) 90 02/20/19 00:00 83 02/19/19 23:30 88 27 139/90 (106) 87 02/19/19 23:00 87 26 143/78 (99) 93 02/19/19 22:57 84 29 95 Facial 70 02/19/19 22:00 89 27 129/110 (116) 90 02/19/19 21:39 138/96 02/19/19 21:38 138/96 02/19/19 21:00 95 23 148/92 (110) 98 02/19/19 20:53 101 26 97 Facial 75 02/19/19 20:39 103 138/96 02/19/19 20:00 Bi-pap Bi-pap 02/19/19 20:00 75 02/19/19 20:00 99.0 103 28 159/73 (101) 88 02/19/19 20:00 87 02/19/19 19:20 103 22 88 Cool Aerosol 10.0 50 02/19/19 19:13 86 Cool Aerosol 10.0 50 02/19/19 19:13 109 26 87 Cool Aerosol 50 02/19/19 19:00 104 30 138/96 (110) 86 02/19/19 18:30 104 30 164/88 (113) 89 02/19/19 18:00 101 25 166/78 (107) 93 02/19/19 17:33 159/88 02/19/19 17:30 103 26 179/65 (103) 92 02/19/19 17:00 104 27 159/80 (106) 91 02/19/19 16:30 104 27 150/111 (124) 91 02/19/19 16:00 105 02/19/19 16:00 Venturi Mask Venturi Mask 02/19/19 16:00 15.0 50 02/19/19 16:00 98.1 105 26 148/65 (92) 91 02/19/19 15:30 107 27 167/147 (154) 84 02/19/19 15:00 100 27 159/88 (111) 84 02/19/19 14:58 102 16 96 Cool Aerosol 10.0 50 02/19/19 14:48 102 16 95 Cool Aerosol 50 02/19/19 14:45 176/76 02/19/19 14:30 103 26 179/89 (119) 99 02/19/19 14:00 105 26 176/76 (109) 99 02/19/19 13:30 105 30 178/98 (124) 100 02/19/19 13:17 143/71 02/19/19 13:09 T-piece 10.0 50 02/19/19 13:07 95 Cool Aerosol 10.0 50 02/19/19 13:05 15.0 50 02/19/19 13:00 104 23 149/85 (106) 98 02/19/19 12:52 143/71 02/19/19 12:52 143/71 02/19/19 12:30 102 21 189/104 (132) 97 02/19/19 12:00 85 30 100 Mechanical Ventilator 40 02/19/19 12:00 103 02/19/19 12:00 30 Mechanical Ventilator 40 02/19/19 12:00 21 Mechanical Ventilator 40 02/19/19 12:00 Mechanical Ventilator Mechanical Ventilator 02/19/19 12:00 97.1 77 30 161/78 (105) 100 02/19/19 11:41 83 30 100 Mechanical Ventilator 40 02/19/19 11:06 83 30 40 02/19/19 11:00 Endotracheal Tube 40 02/19/19 11:00 30 Mechanical Ventilator 40 02/19/19 11:00 77 30 145/72 (96) 100 02/19/19 10:30 78 30 165/75 (105) 100 02/19/19 10:00 30 Mechanical Ventilator 40 02/19/19 10:00 30 Mechanical Ventilator 40 02/19/19 10:00 87 30 143/71 (95) 100 02/19/19 09:30 104 30 160/74 (102) 97 02/19/19 09:11 108 186/111 02/19/19 09:11 104 186/111 02/19/19 09:03 40 02/19/19 09:00 115 30 183/96 (125) 97 02/19/19 09:00 30 Mechanical Ventilator 40 02/19/19 09:00 35 Mechanical Ventilator 40 02/19/19 08:45 88 31 40 02/19/19 08:30 78 30 186/111 (136) 97 02/19/19 08:00 40 02/19/19 08:00 18 Mechanical Ventilator 40 02/19/19 08:00 18 Mechanical Ventilator 40 02/19/19 08:00 84 02/19/19 08:00 93 30 187/84 (118) 99 02/19/19 08:00 Mechanical Ventilator 02/19/19 07:03 74 30 99 Mechanical Ventilator 40 02/19/19 07:00 16 Mechanical Ventilator 40 02/19/19 07:00 16 Mechanical Ventilator 40 02/19/19 07:00 96.8 81 30 159/67 (97) 99 02/19/19 06:53 68 30 96 Mechanical Ventilator 40 Intake and Output 02/19/19 02/20/19 19:00 07:00 Intake Total 1075.166 ml 971 ml Output Total 4450 ml 3025 ml Balance -3374.834 ml -2054 ml Free Water 200 ml 100 ml IV Total 875.166 ml 785 ml Tube Feeding 0 ml 86 ml Output Urine Total 4150 ml 3025 ml Stool Total 300 ml Laboratory Tests 02/19/19 14:36: Arterial Blood pH 7.353, Arterial Blood Partial Pressure CO2 38.0, Arterial Blood Partial Pressure O2 67.6L, Arterial Blood HCO3 20.7L, Arterial Blood Oxygen Saturation 91.2L, Arterial Blood Base Excess -4.4L, Benny Test Positive 02/20/19 05:20: White Blood Count [Pending], Red Blood Count [Pending], Hemoglobin [Pending], Hematocrit [Pending], Mean Corpuscular Volume [Pending], Mean Corpuscular Hemoglobin [Pending], Mean Corpuscular Hemoglobin Concent [Pending], Red Cell Distribution Width [Pending], Platelet Count [Pending], Mean Platelet Volume [ Pending], Neutrophils (%) (Auto) [Pending], Lymphocytes (%) (Auto) [Pending], Monocytes (%) (Auto) [Pending], Eosinophils (%) (Auto) [Pending], Basophils (%) (Auto) [Pending], Sodium Level [Pending], Potassium Level [Pending], Chloride Level [Pending], Carbon Dioxide Level [Pending], Blood Urea Nitrogen [Pending], Creatinine [Pending], Estimat Glomerular Filtration Rate [Pending], Glucose Level [Pending], Uric Acid [Pending], Calcium Level [Pending], Phosphorus Level [Pending], Magnesium Level [Pending], Total Bilirubin [Pending], Aspartate Amino Transf (AST/SGOT) [Pending], Alanine Aminotransferase (ALT/SGPT) [Pending] , Alkaline Phosphatase [Pending], C-Reactive Protein, Quantitative [Pending], Pro-B-Type Natriuretic Peptide [Pending], Total Protein [Pending], Albumin [ Pending], Globulin [Pending], Random Vancomycin Level [Pending] Height (Feet): 6 Height (Inches): 0.00 Weight (Pounds): 260 General Appearance: severe distress, other - intubated EENT: other - ETT Neck: normal alignment Cardiovascular: tachycardia Respiratory/Chest: decreased breath sounds Abdomen: normal bowel sounds Pelvis: normal external exam Objective Current Medications Medications (Trade) Dose Ordered Sig/Marquis Route PRN Reason Start Time Stop Time Status Last Admin Dose Admin Acetaminophen (Tylenol) 650 mg Q4H PRN ORAL Mild Pain (Pain Scale 1-3) 02/07/19 11:15 03/08/19 17:29 02/07/19 23:01 Acetaminophen/ Butalbital/ Caffeine (Fioricet) 1 tab Q8H PRN ORAL For Headache 02/08/19 17:15 03/10/19 17:14 Albuterol/ Ipratropium (Albuterol/ Ipratropium) 3 ml Q4HRT HHN 02/20/19 03:00 02/25/19 02:59 02/20/19 02:39 Amlodipine Besylate (Norvasc) 10 mg DAILY NG 02/15/19 09:00 03/14/19 15:59 02/19/19 09:11 Artificial Tears (Lacri-Lube) 1 applic AC+HS BOTH EYES 02/18/19 06:30 03/20/19 06:29 02/20/19 05:16 Aspirin (Ecotrin) 81 mg DAILY ORAL 02/08/19 09:00 03/09/19 08:59 02/19/19 09:11 Atorvastatin Calcium (Lipitor) 10 mg QHS ORAL 02/17/19 21:00 03/10/19 20:59 02/19/19 20:39 Bisacodyl (Dulcolax) 5 mg DAILYPRN PRN ORAL Constipation 02/08/19 17:15 03/10/19 17:14 02/18/19 20:13 Chlorhexidine Gluconate (Jessy-Hex 2%) 1 applic DAILY@2000 TOPIC 02/13/19 20:00 03/15/19 19:59 02/19/19 20:38 Clonidine HCl (Catapres Tab) 0.1 mg EVERY 8 HOURS NG 02/17/19 14:00 03/19/19 13:59 02/20/19 05:16 Dextrose (Dextrose 50%) 25 ml Q30M PRN IV Hypoglycemia 02/15/19 18:15 03/17/19 18:14 Dextrose (Dextrose 50%) 50 ml Q30M PRN IV Hypoglycemia 02/15/19 18:15 03/17/19 18:14 Docusate Sodium (Colace) 100 mg TID GT 02/12/19 18:00 03/12/19 08:59 02/19/19 17:33 Enoxaparin Sodium (Lovenox) 40 mg Q24H SUBQ 02/07/19 21:00 03/08/19 20:59 02/19/19 20:40 Fentanyl Citrate 2500 mcg/Sodium Chloride 250 ml @ 0 mls/hr Q24H IV 02/13/19 15:45 02/20/19 15:44 02/19/19 05:00 Fluconazole/ Sodium Chloride 100 ml @ 100 mls/hr Q24H IV 02/14/19 18:00 02/21/19 17:59 02/19/19 17:33 Guaifenesin (Mucinex ER) 600 mg TWICE A DAY ORAL 02/07/19 18:00 03/09/19 08:59 02/19/19 17:33 Hydralazine HCl (Apresoline) 10 mg Q4H PRN IV bp over 165 syst 02/17/19 10:15 03/19/19 10:14 02/19/19 14:45 Hydralazine HCl (Apresoline) 100 mg Q8HR NG 02/19/19 22:00 03/21/19 21:59 02/20/19 05:15 Insulin Aspart (NovoLOG) EVERY 4 HOURS SUBQ 02/15/19 21:00 03/17/19 20:59 02/19/19 20:41 Insulin Aspart (NovoLOG) 10 units EVERY 4 HOURS SUBQ 02/18/19 17:00 03/17/19 20:59 02/19/19 20:42 Isosorbide Dinitrate (Isordil) 20 mg Q6HR NG 02/15/19 12:00 03/15/19 12:59 02/20/19 05:14 Lansoprazole (Prevacid) 30 mg BID NG 02/12/19 18:00 03/14/19 17:59 02/19/19 17:33 Lorazepam (Ativan 2mg/ml 1ml) 2 mg Q2H PRN IV agitation/restlessness 02/19/19 22:00 02/26/19 21:44 Lorazepam (Ativan) 1 mg Q4H PRN ORAL For Anxiety 02/19/19 15:15 02/26/19 15:14 02/19/19 15:21 Methylprednisolone Sodium Succinate (Solu-MEDROL) 10 mg EVERY 12 HOURS IVP 02/19/19 21:00 03/12/19 20:59 02/19/19 20:41 Metolazone (Zaroxolyn) 10 mg DAILY NG 02/19/19 10:00 03/21/19 09:59 02/19/19 09:23 Metoprolol Tartrate (Lopressor) 100 mg Q12HR ORAL 02/07/19 21:00 03/08/19 20:59 02/19/19 20:39 Midazolam HCl (Versed 2mg/2ml vial) 1 mg Q2H PRN IVP Agitation 02/13/19 08:45 03/15/19 08:44 02/14/19 05:49 Midazolam HCl 50 mg/Sodium Chloride 100 ml @ 0 mls/hr Q24H IV 02/13/19 15:45 02/20/19 15:44 02/19/19 05:00 Neomycin/ Polymyxin/ Dexamethasone (Maxitrol Opth Oint) 1 applic BEDTIME BOTH EYES 02/18/19 21:00 03/20/19 20:59 02/19/19 20:38 Nitroglycerin (Ntg) 0.4 mg Q5M PRN SL Prn Chest Pain 02/07/19 11:00 03/08/19 17:29 02/08/19 07:42 Ondansetron HCl (Zofran) 4 mg Q6H PRN IVP Nausea & Vomiting 02/07/19 11:15 03/08/19 11:14 02/09/19 00:58 Patient Own Medication (Patient's Own Med) 1 ea BID ORAL 02/07/19 18:00 03/09/19 17:59 02/19/19 17:33 Patient Own Medication (Patient's Own Med) 1 ea Q48H ORAL 02/18/19 09:00 03/20/19 08:59 02/18/19 08:53 Patient Own Medication (Patient's Own Med) 2 ea DAILY ORAL 02/08/19 09:00 03/10/19 08:59 02/19/19 09:12 Piperacillin Sod/ Tazobactam Sod 3.375 gm/Sodium Chloride 110 ml @ 27.5 mls/hr Q12HR@0600,1800 IVPB 02/16/19 18:00 02/23/19 17:59 02/20/19 05:14 Polyethylene Glycol (Miralax) 17 gm BEDTIME ORAL 02/08/19 21:00 03/10/19 20:59 02/19/19 20:39 Sennosides (Senokot) 8.6 mg DAILY ORAL 02/13/19 12:00 03/15/19 11:59 02/19/19 09:11 Trimethoprim/ Sulfamethoxazole 25 ml/Dextrose 575 ml @ 383.333 mls/hr Q12HR@0000,1200 IV 02/17/19 00:00 02/23/19 23:59 02/20/19 00:17 Vancomycin HCl (Vanco rx to dose) 1 ea DAILY PRN MISC . 02/10/19 19:45 03/12/19 19:44 Carlito Nichols MD 2, 2019 06:44
[2019-02-20 06:52] LABS: PHOSPHORUS 4.8 MG/DL (2.5-4.9)
--- NOTE | 2019-02-20 07:00 | NUR ---
RESPIRATORY NOTES: Received patient on BIPAP 12/ PS +7 BUR 16 FIO2 60%. Patient currently on facial mask with tape in place. Bilateral diminished breath sounds heard throughout both lung almaguer. BIPAP plugged into red outlet. Alarms are on and audible. Will continue to monitor throughout the day.
--- NOTE | 2019-02-20 07:01 | NUR ---
NURSE NOTES: Report received form TESSA Najera. Pt is sleeping. Slightly responsive to tactile stimuli. Pt is impulsive at times and non-compliant. Non-verbal. Unable to follow commands. On bilateral soft wrist restraints. Sinus rhythm on electronic device monitor. On Bi-pap 12-5, 60%. O2 sat 98-100%. No respiratory distress noted. Left NGT in place. Feeding held by broomcorn sorter. Simon and rectal tube in place draining to gravity. Generalized edema noted. Left femoral João catheter with pigtail in place. Left FA G18 patent and asymptomatic. Bed in lowest position. Side rails up x3. Will resume plan of care.
[2019-02-20 07:07] LABS: ALANINE AMINOTRANSFERASE 68 U/L (12-78); ALBUMIN 2.4 G/DL (3.4-5.0); ALBUMIN/GLOBULIN RATIO 0.7 (1.0-2.7); ALKALINE PHOSPHATASE 121 U/L (46-116); ANION GAP 9 mmol/L (5-15); ASPARTATE AMINO TRANSFERASE 89 U/L (15-37); BILIRUBIN,TOTAL 0.5 MG/DL (0.2-1.0); BLOOD UREA NITROGEN 56 mg/dL (7-18); CALCIUM 8.5 MG/DL (8.5-10.1); CARBON DIOXIDE 26 MMOL/L (21-32); CHLORIDE 103 MMOL/L (98-107); CREATININE 2.3 MG/DL (0.55-1.30); POTASSIUM 4.7 MMOL/L (3.5-5.1); SODIUM 138 MMOL/L (136-145)
--- NOTE | 2019-02-20 07:47 | NUR ---
NURSE NOTES: Nelsy neuro CONTACT PRINTER DRY FILM here to see the patient. STAT ABG and head CT with no contrast ordered, noted. Will carry out the orders.
[2019-02-20] MEDS: Docusate 100mg/10ml Liq GT SCH ×3 (08:32→17:48)
[2019-02-20] MEDS: guaiFENesin ER 600mg tab ORAL SCH ×2 (08:32→17:48)
[2019-02-20] MEDS: Solu-MEDROL 40mg Inj IVP SCH ×2 (08:33→20:38)
[2019-02-20] MEDS: TENOFOVIR DISOPROXIL FUMARATE 300 MG ORAL SCH (08:33)
[2019-02-20] MEDS: Aspirin EC 81mg tab ORAL SCH (08:33)
[2019-02-20] MEDS: Sennosides 8.6mg tab ORAL SCH (08:39)
[2019-02-20] MEDS: ETRAVIRINE 200 MG ORAL SCH (08:39)
[2019-02-20] MEDS: RALTEGRAVIR 400 MG ORAL SCH ×2 (08:40→17:46)
[2019-02-20] MEDS: Levemir Flexpen SUBQ SCH ×2 (08:46→17:49)
--- NOTE | 2019-02-20 08:49 | NUR ---
NURSE NOTES: D50 50ml given for low BS 54. Will recheck sugar.
--- NOTE | 2019-02-20 08:59 | General Progress Note ---
Assessment/Plan Status: unchanged Assessment/Plan: 1. History of HIV. 2. Hypertension. 3. Vertigo. 4. History of headaches. 5. History of diabetes. 6. Respiratory failure 7. Dysphagia 8. ileus NGTF extubated swallow eval when more alert Subjective ROS Limited/Unobtainable: No Allergies: Coded Allergies: No Known Allergies (Unverified , 02/05/13) Objective Last 24 Hour Vital Signs Date Time Temp Pulse Resp B/P (MAP) Pulse Ox O2 Delivery O2 Flow Rate FiO2 02/20/19 08:32 78 162/71 02/20/19 08:32 78 162/71 02/20/19 07:04 82 27 100 Bi-Pap 60 02/20/19 07:04 Bi-Pap 60 02/20/19 07:02 84 30 100 Facial 60 02/20/19 07:00 83 29 105/82 (90) 100 02/20/19 06:57 83 30 100 Bi-Pap 60 02/20/19 06:00 86 25 133/69 (90) 100 02/20/19 05:16 140/84 02/20/19 05:15 140/84 02/20/19 05:14 140/84 02/20/19 05:02 88 28 97 Facial 60 02/20/19 05:00 85 28 149/81 (103) 100 02/20/19 04:30 85 20 154/68 (96) 100 02/20/19 04:00 60 02/20/19 04:00 99.5 90 25 146/68 (94) 98 02/20/19 04:00 86 02/20/19 04:00 Bi-pap Bi-pap 02/20/19 03:00 91 31 159/80 (106) 99 02/20/19 02:57 91 29 98 Bi-Pap 60 02/20/19 02:39 87 28 94 Bi-Pap 65 02/20/19 02:37 87 29 94 Facial 65 02/20/19 02:00 85 28 152/76 (101) 93 02/20/19 01:30 84 27 140/84 (102) 85 02/20/19 01:02 88 27 91 Facial 70 02/20/19 01:00 86 28 136/90 (105) 94 02/20/19 00:30 87 29 137/70 (92) 90 02/20/19 00:16 149/86 02/20/19 00:00 Bi-pap Bi-pap 02/20/19 00:00 70 02/20/19 00:00 98.6 89 29 149/86 (107) 90 02/20/19 00:00 83 02/19/19 23:30 88 27 139/90 (106) 87 02/19/19 23:00 87 26 143/78 (99) 93 02/19/19 22:57 84 29 95 Facial 70 02/19/19 22:00 89 27 129/110 (116) 90 02/19/19 21:39 138/96 02/19/19 21:38 138/96 02/19/19 21:00 95 23 148/92 (110) 98 02/19/19 20:53 101 26 97 Facial 75 02/19/19 20:39 103 138/96 02/19/19 20:00 Bi-pap Bi-pap 02/19/19 20:00 75 02/19/19 20:00 99.0 103 28 159/73 (101) 88 02/19/19 20:00 87 02/19/19 19:20 103 22 88 Cool Aerosol 10.0 50 02/19/19 19:13 86 Cool Aerosol 10.0 50 02/19/19 19:13 109 26 87 Cool Aerosol 50 02/19/19 19:00 104 30 138/96 (110) 86 02/19/19 18:30 104 30 164/88 (113) 89 02/19/19 18:00 101 25 166/78 (107) 93 02/19/19 17:33 159/88 02/19/19 17:30 103 26 179/65 (103) 92 02/19/19 17:00 104 27 159/80 (106) 91 02/19/19 16:30 104 27 150/111 (124) 91 02/19/19 16:00 105 02/19/19 16:00 Venturi Mask Venturi Mask 02/19/19 16:00 15.0 50 02/19/19 16:00 98.1 105 26 148/65 (92) 91 02/19/19 15:30 107 27 167/147 (154) 84 02/19/19 15:00 100 27 159/88 (111) 84 02/19/19 14:58 102 16 96 Cool Aerosol 10.0 50 02/19/19 14:48 102 16 95 Cool Aerosol 50 02/19/19 14:45 176/76 02/19/19 14:30 103 26 179/89 (119) 99 02/19/19 14:00 105 26 176/76 (109) 99 02/19/19 13:30 105 30 178/98 (124) 100 02/19/19 13:17 143/71 02/19/19 13:09 T-piece 10.0 50 02/19/19 13:07 95 Cool Aerosol 10.0 50 02/19/19 13:05 15.0 50 02/19/19 13:00 104 23 149/85 (106) 98 02/19/19 12:52 143/71 02/19/19 12:52 143/71 02/19/19 12:30 102 21 189/104 (132) 97 02/19/19 12:00 85 30 100 Mechanical Ventilator 40 02/19/19 12:00 103 02/19/19 12:00 30 Mechanical Ventilator 40 02/19/19 12:00 21 Mechanical Ventilator 40 02/19/19 12:00 Mechanical Ventilator Mechanical Ventilator 02/19/19 12:00 97.1 77 30 161/78 (105) 100 02/19/19 11:41 83 30 100 Mechanical Ventilator 40 02/19/19 11:06 83 30 40 02/19/19 11:00 Endotracheal Tube 40 02/19/19 11:00 30 Mechanical Ventilator 40 02/19/19 11:00 77 30 145/72 (96) 100 02/19/19 10:30 78 30 165/75 (105) 100 02/19/19 10:00 30 Mechanical Ventilator 40 02/19/19 10:00 30 Mechanical Ventilator 40 02/19/19 10:00 87 30 143/71 (95) 100 02/19/19 09:30 104 30 160/74 (102) 97 02/19/19 09:11 108 186/111 02/19/19 09:11 104 186/111 02/19/19 09:03 40 02/19/19 09:00 115 30 183/96 (125) 97 02/19/19 09:00 30 Mechanical Ventilator 40 02/19/19 09:00 35 Mechanical Ventilator 40 Intake and Output 02/19/19 02/20/19 19:00 07:00 Intake Total 1075.166 ml 1069.0 ml Output Total 4450 ml 3125 ml Balance -3374.834 ml -2056.0 ml Free Water 200 ml 100 ml IV Total 875.166 ml 840.0 ml Tube Feeding 0 ml 129 ml Output Urine Total 4150 ml 3125 ml Stool Total 300 ml Laboratory Tests 02/19/19 14:36: Arterial Blood pH 7.353, Arterial Blood Partial Pressure CO2 38.0, Arterial Blood Partial Pressure O2 67.6L, Arterial Blood HCO3 20.7L, Arterial Blood Oxygen Saturation 91.2L, Arterial Blood Base Excess -4.4L, Benny Test Positive 02/20/19 05:20: White Blood Count 17.8#H, Red Blood Count 3.23L, Hemoglobin 9.1L, Hematocrit 28.1L, Mean Corpuscular Volume 87, Mean Corpuscular Hemoglobin 28.3, Mean Corpuscular Hemoglobin Concent 32.6, Red Cell Distribution Width 17.4H, Platelet Count 262, Mean Platelet Volume 6.1L, Neutrophils (%) (Auto) , Lymphocytes (%) (Auto) , Monocytes (%) (Auto) , Eosinophils (%) (Auto) , Basophils (%) (Auto) , Differential Total Cells Counted 100, Neutrophils % ( Manual) 95H, Lymphocytes % (Manual) 2L, Monocytes % (Manual) 3, Eosinophils % ( Manual) 0, Basophils % (Manual) 0, Band Neutrophils 0, Platelet Estimate Adequate, Platelet Morphology Normal, Hypochromasia 2+, Anisocytosis 1+, Sodium Level 138, Potassium Level 4.7, Chloride Level 103, Carbon Dioxide Level 26, Anion Gap 9, Blood Urea Nitrogen 56H, Creatinine 2.3H, Estimat Glomerular Filtration Rate 29.2, Glucose Level 68#L, Uric Acid 2.8, Calcium Level 8.5, Phosphorus Level 4.8, Magnesium Level 1.8, Total Bilirubin 0.5, Aspartate Amino Transf (AST/SGOT) 89H, Alanine Aminotransferase (ALT/SGPT) 68, Alkaline Phosphatase 121H, C-Reactive Protein, Quantitative 5.4H, Pro-B-Type Natriuretic Peptide 83265L, Total Protein 5.7L, Albumin 2.4L, Globulin 3.3, Albumin/ Globulin Ratio 0.7L, Random Vancomycin Level 8.2 02/20/19 07:47: Arterial Blood pH 7.393, Arterial Blood Partial Pressure CO2 38.8, Arterial Blood Partial Pressure O2 104.4H, Arterial Blood HCO3 23.1, Arterial Blood Oxygen Saturation 97.0, Arterial Blood Base Excess -1.6, Benny Test Positive Height (Feet): 6 Height (Inches): 0.00 Weight (Pounds): 260 General Appearance: lethargic EENT: normal ENT inspection Neck: normal alignment Cardiovascular: normal rate Respiratory/Chest: decreased breath sounds Abdomen: normal bowel sounds, non tender, soft Extremities: non-tender Kg Ricketts MD Feb 20, 2019 08:59
[2019-02-20] MEDS ORDERED: Vancomycin 1.5gm Premix IVPB ONE (09:00)
--- NOTE | 2019-02-20 09:10 | NUR ---
NURSE NOTES: BS rechecked. 124. Pt is awake and able to verbalize needs. Slightly restless. Attended all needs. Impulsive and non-complaints at times. On bilateral soft wrist restraints. Will continue to monitor.
--- NOTE | 2019-02-20 10:02 | NUR ---
NURSE NOTES: Dr Meredith here to see the patient. Notified him with ABG result. Bi-pap off and placed on Ventri mask 55% as per his order. O2 sat 94-95%. Will continue to monitor.
--- NOTE | 2019-02-20 10:14 | Nephrology Progress Note ---
Assessment/Plan Problem List: (1) ISH (acute kidney injury) Assessment: Cr lowering (2) HIV (human immunodeficiency virus infection) (3) NSTEMI (non-ST elevated myocardial infarction) Assessment: troponin decreasing (4) Hypoxia (5) Anemia (6) Diabetes Assessment Acute Renal failure- Cr leveling- Urine out put is good Acidosis improved Acute respiratory failure- Require intubation and Mechanical Ventilation- Anemia- Elevated troponin / NE HTN DM HIV Antibody + Plan Zaroxylin 10 daily trial of Albumin and Lasix stop IV fluid Kayexelate as needed BP med adjustment ? recheck 2D echo?? IV D5W Off Bicitra UA and urine studies Avoid Nephrotoxics as possible Monitor renal parameters keep BP and BS in check Per orders No HD at this time Kidney RADHA noted adjust BP meds add Isordil Subjective ROS Limited/Unobtainable: Yes Objective Objective Last 24 Hour Vital Signs Date Time Temp Pulse Resp B/P (MAP) Pulse Ox O2 Delivery O2 Flow Rate FiO2 02/20/19 10:00 85 26 176/74 (108) 93 02/20/19 09:45 85 22 98 02/20/19 09:00 78 20 149/61 (90) 100 02/20/19 08:32 78 162/71 02/20/19 08:32 78 162/71 02/20/19 08:00 97.9 79 18 162/71 (101) 100 02/20/19 07:04 82 27 100 Bi-Pap 60 02/20/19 07:04 Bi-Pap 60 02/20/19 07:02 84 30 100 Facial 60 02/20/19 07:00 83 29 105/82 (90) 100 02/20/19 06:57 83 30 100 Bi-Pap 60 02/20/19 06:00 86 25 133/69 (90) 100 02/20/19 05:16 140/84 02/20/19 05:15 140/84 02/20/19 05:14 140/84 02/20/19 05:02 88 28 97 Facial 60 02/20/19 05:00 85 28 149/81 (103) 100 02/20/19 04:30 85 20 154/68 (96) 100 02/20/19 04:00 60 02/20/19 04:00 99.5 90 25 146/68 (94) 98 02/20/19 04:00 86 7/2/19 04:00 Bi-pap Bi-pap 02/20/19 03:00 91 31 159/80 (106) 99 02/20/19 02:57 91 29 98 Bi-Pap 60 02/20/19 02:39 87 28 94 Bi-Pap 65 02/20/19 02:37 87 29 94 Facial 65 02/20/19 02:00 85 28 152/76 (101) 93 02/20/19 01:30 84 27 140/84 (102) 85 02/20/19 01:02 88 27 91 Facial 70 02/20/19 01:00 86 28 136/90 (105) 94 02/20/19 00:30 87 29 137/70 (92) 90 02/20/19 00:16 149/86 02/20/19 00:00 Bi-pap Bi-pap 02/20/19 00:00 70 02/20/19 00:00 98.6 89 29 149/86 (107) 90 02/20/19 00:00 83 02/19/19 23:30 88 27 139/90 (106) 87 02/19/19 23:00 87 26 143/78 (99) 93 02/19/19 22:57 84 29 95 Facial 70 02/19/19 22:00 89 27 129/110 (116) 90 02/19/19 21:39 138/96 02/19/19 21:38 138/96 02/19/19 21:00 95 23 148/92 (110) 98 02/19/19 20:53 101 26 97 Facial 75 02/19/19 20:39 103 138/96 02/19/19 20:00 Bi-pap Bi-pap 02/19/19 20:00 75 02/19/19 20:00 99.0 103 28 159/73 (101) 88 02/19/19 20:00 87 02/19/19 19:20 103 22 88 Cool Aerosol 10.0 50 02/19/19 19:13 86 Cool Aerosol 10.0 50 02/19/19 19:13 109 26 87 Cool Aerosol 50 02/19/19 19:00 104 30 138/96 (110) 86 02/19/19 18:30 104 30 164/88 (113) 89 02/19/19 18:00 101 25 166/78 (107) 93 02/19/19 17:33 159/88 02/19/19 17:30 103 26 179/65 (103) 92 02/19/19 17:00 104 27 159/80 (106) 91 02/19/19 16:30 104 27 150/111 (124) 91 02/19/19 16:00 105 02/19/19 16:00 Venturi Mask Venturi Mask 02/19/19 16:00 15.0 50 02/19/19 16:00 98.1 105 26 148/65 (92) 91 02/19/19 15:30 107 27 167/147 (154) 84 02/19/19 15:00 100 27 159/88 (111) 84 02/19/19 14:58 102 16 96 Cool Aerosol 10.0 50 02/19/19 14:48 102 16 95 Cool Aerosol 50 02/19/19 14:45 176/76 02/19/19 14:30 103 26 179/89 (119) 99 02/19/19 14:00 105 26 176/76 (109) 99 02/19/19 13:30 105 30 178/98 (124) 100 02/19/19 13:17 143/71 02/19/19 13:09 T-piece 10.0 50 02/19/19 13:07 95 Cool Aerosol 10.0 50 02/19/19 13:05 15.0 50 02/19/19 13:00 104 23 149/85 (106) 98 02/19/19 12:52 143/71 02/19/19 12:52 143/71 02/19/19 12:30 102 21 189/104 (132) 97 02/19/19 12:00 85 30 100 Mechanical Ventilator 40 02/19/19 12:00 103 02/19/19 12:00 30 Mechanical Ventilator 40 02/19/19 12:00 21 Mechanical Ventilator 40 02/19/19 12:00 Mechanical Ventilator Mechanical Ventilator 02/19/19 12:00 97.1 77 30 161/78 (105) 100 02/19/19 11:41 83 30 100 Mechanical Ventilator 40 02/19/19 11:06 83 30 40 02/19/19 11:00 Endotracheal Tube 40 02/19/19 11:00 30 Mechanical Ventilator 40 02/19/19 11:00 77 30 145/72 (96) 100 02/19/19 10:30 78 30 165/75 (105) 100 Intake and Output 02/19/19 02/20/19 19:00 07:00 Intake Total 1075.166 ml 1069.0 ml Output Total 4450 ml 3125 ml Balance -3374.834 ml -2056.0 ml Free Water 200 ml 100 ml IV Total 875.166 ml 840.0 ml Tube Feeding 0 ml 129 ml Output Urine Total 4150 ml 3125 ml Stool Total 300 ml Laboratory Tests 02/19/19 14:36: Arterial Blood pH 7.353, Arterial Blood Partial Pressure CO2 38.0, Arterial Blood Partial Pressure O2 67.6L, Arterial Blood HCO3 20.7L, Arterial Blood Oxygen Saturation 91.2L, Arterial Blood Base Excess -4.4L, Benny Test Positive 02/20/19 05:20: White Blood Count 17.8#H, Red Blood Count 3.23L, Hemoglobin 9.1L, Hematocrit 28.1L, Mean Corpuscular Volume 87, Mean Corpuscular Hemoglobin 28.3, Mean Corpuscular Hemoglobin Concent 32.6, Red Cell Distribution Width 17.4H, Platelet Count 262, Mean Platelet Volume 6.1L, Neutrophils (%) (Auto) , Lymphocytes (%) (Auto) , Monocytes (%) (Auto) , Eosinophils (%) (Auto) , Basophils (%) (Auto) , Differential Total Cells Counted 100, Neutrophils % ( Manual) 95H, Lymphocytes % (Manual) 2L, Monocytes % (Manual) 3, Eosinophils % ( Manual) 0, Basophils % (Manual) 0, Band Neutrophils 0, Platelet Estimate Adequate, Platelet Morphology Normal, Hypochromasia 2+, Anisocytosis 1+, Sodium Level 138, Potassium Level 4.7, Chloride Level 103, Carbon Dioxide Level 26, Anion Gap 9, Blood Urea Nitrogen 56H, Creatinine 2.3H, Estimat Glomerular Filtration Rate 29.2, Glucose Level 68#L, Uric Acid 2.8, Calcium Level 8.5, Phosphorus Level 4.8, Magnesium Level 1.8, Total Bilirubin 0.5, Aspartate Amino Transf (AST/SGOT) 89H, Alanine Aminotransferase (ALT/SGPT) 68, Alkaline Phosphatase 121H, C-Reactive Protein, Quantitative 5.4H, Pro-B-Type Natriuretic Peptide 20606O, Total Protein 5.7L, Albumin 2.4L, Globulin 3.3, Albumin/ Globulin Ratio 0.7L, Random Vancomycin Level 8.2 02/20/19 07:47: Arterial Blood pH 7.393, Arterial Blood Partial Pressure CO2 38.8, Arterial Blood Partial Pressure O2 104.4H, Arterial Blood HCO3 23.1, Arterial Blood Oxygen Saturation 97.0, Arterial Blood Base Excess -1.6, Benny Test Positive Height (Feet): 6 Height (Inches): 0.00 Weight (Pounds): 260 General Appearance: no apparent distress EENT: other - vented Respiratory/Chest: decreased breath sounds Abdomen: distended Mike Mcdonald MD Feb 20, 2019 10:14
--- NOTE | 2019-02-20 11:35 | NUR ---
NURSE NOTES: Pulled up in bed and repositioned pt. Pt is on Ventri mask 55%. Will continue to monitor.
--- NOTE | 2019-02-20 11:59 | Pulmonolgy Critical Care Note ---
Critical Care - Asmt/Plan Problems: (1) Endotracheally intubated (2) Acute hypoxemic respiratory failure (3) Pneumonia (4) NSTEMI (non-ST elevated myocardial infarction) (5) AIDS (6) HIV disease (7) Hypertension (8) MDD (major depressive disorder), recurrent episode, moderate (9) Anemia (10) CKD (chronic kidney disease) (11) History of stroke (12) Diabetes (13) Anxiety (14) Malignant hypertension Assessment/Plan: VDRF, extubated 02/19 ARDS Acute respiratory failure B pulmonary infiltrates, ? multilobar CAP vs atypical infection vs other ? PJP AIDS (CD4 191) NSTEMI H/O prior CVA HTN HL DM with uncontrolled BS ISH on CKD Anemia PLAN: CXR PRN BiPAP Titrate O2 RTC and PRN HHN's Continue Abx per ID + flucon per ID SM 10 IV BID and taper Monitor volumes and renal function, F/U renal recs, diurese as able F/U cards recs: will need further ischemia eval/cath once stabilized DVT Px: LMWH F/U ENDO recs TF's UNDERCOVER COP eval FC D/W RN and RT @ bedside CCT 25 Critical Care - Objective Last 24 Hour Vital Signs Date Time Temp Pulse Resp B/P (MAP) Pulse Ox O2 Delivery O2 Flow Rate FiO2 02/20/19 11:05 Venturi Mask 14.0 55 02/20/19 11:05 118 24 95 02/20/19 11:05 Venturi Mask 14.0 55 02/20/19 11:00 88 23 143/125 (131) 95 02/20/19 10:00 85 26 176/74 (108) 93 02/20/19 09:45 85 22 98 02/20/19 09:00 78 20 149/61 (90) 100 02/20/19 08:32 78 162/71 02/20/19 08:32 78 162/71 02/20/19 08:00 Bi-pap Bi-pap 02/20/19 08:00 60 02/20/19 08:00 97.9 79 18 162/71 (101) 100 02/20/19 07:04 82 27 100 Bi-Pap 60 02/20/19 07:04 Bi-Pap 60 02/20/19 07:02 84 30 100 Facial 60 02/20/19 07:00 83 29 105/82 (90) 100 02/20/19 06:57 83 30 100 Bi-Pap 60 02/20/19 06:00 86 25 133/69 (90) 100 02/20/19 05:16 140/84 02/20/19 05:15 140/84 02/20/19 05:14 140/84 02/20/19 05:02 88 28 97 Facial 60 02/20/19 05:00 85 28 149/81 (103) 100 02/20/19 04:30 85 20 154/68 (96) 100 02/20/19 04:00 60 02/20/19 04:00 99.5 90 25 146/68 (94) 98 02/20/19 04:00 86 02/20/19 04:00 Bi-pap Bi-pap 02/20/19 03:00 91 31 159/80 (106) 99 02/20/19 02:57 91 29 98 Bi-Pap 60 02/20/19 02:39 87 28 94 Bi-Pap 65 02/20/19 02:37 87 29 94 Facial 65 02/20/19 02:00 85 28 152/76 (101) 93 02/20/19 01:30 84 27 140/84 (102) 85 02/20/19 01:02 88 27 91 Facial 70 02/20/19 01:00 86 28 136/90 (105) 94 02/20/19 00:30 87 29 137/70 (92) 90 02/20/19 00:16 149/86 02/20/19 00:00 Bi-pap Bi-pap 02/20/19 00:00 70 02/20/19 00:00 98.6 89 29 149/86 (107) 90 02/20/19 00:00 83 02/19/19 23:30 88 27 139/90 (106) 87 02/19/19 23:00 87 26 143/78 (99) 93 02/19/19 22:57 84 29 95 Facial 70 02/19/19 22:00 89 27 129/110 (116) 90 02/19/19 21:39 138/96 02/19/19 21:38 138/96 02/19/19 21:00 95 23 148/92 (110) 98 02/19/19 20:53 101 26 97 Facial 75 02/19/19 20:39 103 138/96 7/1/19 20:00 Bi-pap Bi-pap 02/19/19 20:00 75 02/19/19 20:00 99.0 103 28 159/73 (101) 88 02/19/19 20:00 87 02/19/19 19:20 103 22 88 Cool Aerosol 10.0 50 02/19/19 19:13 86 Cool Aerosol 10.0 50 02/19/19 19:13 109 26 87 Cool Aerosol 50 02/19/19 19:00 104 30 138/96 (110) 86 02/19/19 18:30 104 30 164/88 (113) 89 02/19/19 18:00 101 25 166/78 (107) 93 02/19/19 17:33 159/88 02/19/19 17:30 103 26 179/65 (103) 92 02/19/19 17:00 104 27 159/80 (106) 91 02/19/19 16:30 104 27 150/111 (124) 91 02/19/19 16:00 105 02/19/19 16:00 Venturi Mask Venturi Mask 02/19/19 16:00 15.0 50 02/19/19 16:00 98.1 105 26 148/65 (92) 91 02/19/19 15:30 107 27 167/147 (154) 84 02/19/19 15:00 100 27 159/88 (111) 84 02/19/19 14:58 102 16 96 Cool Aerosol 10.0 50 02/19/19 14:48 102 16 95 Cool Aerosol 50 02/19/19 14:45 176/76 02/19/19 14:30 103 26 179/89 (119) 99 02/19/19 14:00 105 26 176/76 (109) 99 02/19/19 13:30 105 30 178/98 (124) 100 02/19/19 13:17 143/71 02/19/19 13:09 T-piece 10.0 50 02/19/19 13:07 95 Cool Aerosol 10.0 50 02/19/19 13:05 15.0 50 02/19/19 13:00 104 23 149/85 (106) 98 02/19/19 12:52 143/71 02/19/19 12:52 143/71 02/19/19 12:30 102 21 189/104 (132) 97 02/19/19 12:00 85 30 100 Mechanical Ventilator 40 02/19/19 12:00 103 02/19/19 12:00 30 Mechanical Ventilator 40 02/19/19 12:00 21 Mechanical Ventilator 40 02/19/19 12:00 Mechanical Ventilator Mechanical Ventilator 02/19/19 12:00 97.1 77 30 161/78 (105) 100 Status: awake, other - obese male Condition: improving HEENT: atraumatic, normocephalic Lungs: rhonchi Heart: HR/BP stable Abdomen: soft, non-tender, active bowel sounds Extremities: edema - 1+ Micro: Microbiology Date/Time Source Procedure Growth Status 02/18/19 10:00 Sputum Induced Gram Stain - Final Resulted 02/18/19 10:00 Sputum Induced Sputum Culture - Preliminary NORMAL UPPER RESPIRATORY ADRIANA PRESENT Resulted Accucheck: 124 Critical Care - Subjective ROS Limited/Unobtainable: Yes ICU Day: 15 Interval Events: Extubated Agitated yesterday BiPAP ON Gas exchange better on FM now No cough + SOB no FC Condition: improving IV Access: PICC, central EKG Rhythm: Sinus Rhythm FI02: 55 Vent Support Breath Rate: 30 Vent Support Mode: BiLevel Vent Tidal Volume: 550 Sputum Amount: None PEEP: 5.0 PIP: 44 Tube Feeding Amount: 43 I&O: Intake and Output 02/19/19 02/20/19 19:00 07:00 Intake Total 1075.166 ml 1069.0 ml Output Total 4450 ml 3125 ml Balance -3374.834 ml -2056.0 ml Free Water 200 ml 100 ml IV Total 875.166 ml 840.0 ml Tube Feeding 0 ml 129 ml Output Urine Total 4150 ml 3125 ml Stool Total 300 ml Subjective: Awake no complaints Labs: Laboratory Tests Test 02/19/19 14:36 02/20/19 05:20 02/20/19 07:47 Arterial Blood pH 7.353 (7.350-7.450) 7.393 (7.350-7.450) Arterial Blood Partial Pressure CO2 38.0 mmHg (35.0-45.0) 38.8 mmHg (35.0-45.0) Arterial Blood Partial Pressure O2 67.6 mmHg (75.0-100.0) L 104.4 mmHg (75.0-100.0) H Arterial Blood HCO3 20.7 mmol/L (22.0-26.0) L 23.1 mmol/L (22.0-26.0) Arterial Blood Oxygen Saturation 91.2 % (95-100) L 97.0 % (95-100) Arterial Blood Base Excess -4.4 (-2-2) L -1.6 (-2-2) Benny Test Positive Positive White Blood Count 17.8 K/UL (4.8-10.8) #H Red Blood Count 3.23 M/UL (4.70-6.10) L Hemoglobin 9.1 G/DL (14.2-18.0) L Hematocrit 28.1 % (42.0-52.0) L Mean Corpuscular Volume 87 FL (80-99) Mean Corpuscular Hemoglobin 28.3 PG (27.0-31.0) Mean Corpuscular Hemoglobin Concent 32.6 G/DL (32.0-36.0) Red Cell Distribution Width 17.4 % (11.6-14.8) H Platelet Count 262 K/UL (150-450) Mean Platelet Volume 6.1 FL (6.5-10.1) L Neutrophils (%) (Auto) % (45.0-75.0) Lymphocytes (%) (Auto) % (20.0-45.0) Monocytes (%) (Auto) % (1.0-10.0) Eosinophils (%) (Auto) % (0.0-3.0) Basophils (%) (Auto) % (0.0-2.0) Differential Total Cells Counted 100 Neutrophils % (Manual) 95 % (45-75) H Lymphocytes % (Manual) 2 % (20-45) L Monocytes % (Manual) 3 % (1-10) Eosinophils % (Manual) 0 % (0-3) Basophils % (Manual) 0 % (0-2) Band Neutrophils 0 % (0-8) Platelet Estimate Adequate Platelet Morphology Normal Hypochromasia 2+ Anisocytosis 1+ Sodium Level 138 MMOL/L (136-145) Potassium Level 4.7 MMOL/L (3.5-5.1) Chloride Level 103 MMOL/L (98-107) Carbon Dioxide Level 26 MMOL/L (21-32) Anion Gap 9 mmol/L (5-15) Blood Urea Nitrogen 56 mg/dL (7-18) H Creatinine 2.3 MG/DL (0.55-1.30) H Estimat Glomerular Filtration Rate 29.2 mL/min (>60) Glucose Level 68 MG/DL (74-106) #L Uric Acid 2.8 MG/DL (2.6-7.2) Calcium Level 8.5 MG/DL (8.5-10.1) Phosphorus Level 4.8 MG/DL (2.5-4.9) Magnesium Level 1.8 MG/DL (1.8-2.4) Total Bilirubin 0.5 MG/DL (0.2-1.0) Aspartate Amino Transf (AST/SGOT) 89 U/L (15-37) H Alanine Aminotransferase (ALT/SGPT) 68 U/L (12-78) Alkaline Phosphatase 121 U/L (46-116) H C-Reactive Protein, Quantitative 5.4 mg/dL (0.00-0.90) H Pro-B-Type Natriuretic Peptide 57774 pg/mL (0-125) H Total Protein 5.7 G/DL (6.4-8.2) L Albumin 2.4 G/DL (3.4-5.0) L Globulin 3.3 g/dL Albumin/Globulin Ratio 0.7 (1.0-2.7) L Random Vancomycin Level 8.2 ug/mL Brett Meredith MD Feb 20, 2019 11:59
--- NOTE | 2019-02-20 12:16 | NUR ---
CASE MANAGEMENT:REVIEW 02/20/2019 SI: MULTILOBAR PNA ACUTE RESPIRATORY FAILURE. NSTEMI. HIV T 97.9 HR 79 RR 18 B/P 162/71 SATS 100% ON BIPAP FIO2 60 WBC 17.8 BUN 56 CR 2.3 GLU 68 AST 89 ALP 121 BNP 92762 ABGs PO2 104.4 IS: IVF@100 mL/HR IV SOLUMEDROL Q12H IV DIFLUCAN Q24H IV BACTRIM Q12H IV ZOSYN Q12H FENTANYL GTT VERSED GTT INSULIN SQ Q4HRS ISORDIL NG Q6HRS NORVASC NG QD DUONEB HHN Q4HRS : ICU STATUS
--- NOTE | 2019-02-20 12:40 | Surgery Progress Note ---
Surgery Progress Note Subjective Procedure Performed left femoral temporary Hemodialysis catheter insertion Additional Comments doing okay extubated for now leukocytosis 17k today exam with edema still Objective Last 24 Hour Vital Signs Date Time Temp Pulse Resp B/P (MAP) Pulse Ox O2 Delivery O2 Flow Rate FiO2 02/20/19 12:01 106/63 02/20/19 12:00 91 28 135/70 (91) 93 02/20/19 12:00 106/63 02/20/19 12:00 Venturi Mask Venturi Mask 02/20/19 12:00 15.0 02/20/19 11:05 Venturi Mask 14.0 55 02/20/19 11:05 118 24 95 02/20/19 11:05 Venturi Mask 14.0 55 02/20/19 11:00 88 23 143/125 (131) 95 02/20/19 10:00 85 26 176/74 (108) 93 02/20/19 09:45 85 22 98 02/20/19 09:00 78 20 149/61 (90) 100 02/20/19 08:32 78 162/71 02/20/19 08:32 78 162/71 02/20/19 08:00 Bi-pap Bi-pap 02/20/19 08:00 60 02/20/19 08:00 97.9 79 18 162/71 (101) 100 02/20/19 07:04 82 27 100 Bi-Pap 60 02/20/19 07:04 Bi-Pap 60 02/20/19 07:02 84 30 100 Facial 60 02/20/19 07:00 83 29 105/82 (90) 100 02/20/19 06:57 83 30 100 Bi-Pap 60 02/20/19 06:00 86 25 133/69 (90) 100 02/20/19 05:16 140/84 02/20/19 05:15 140/84 02/20/19 05:14 140/84 02/20/19 05:02 88 28 97 Facial 60 02/20/19 05:00 85 28 149/81 (103) 100 02/20/19 04:30 85 20 154/68 (96) 100 02/20/19 04:00 60 02/20/19 04:00 99.5 90 25 146/68 (94) 98 02/20/19 04:00 86 02/20/19 04:00 Bi-pap Bi-pap 02/20/19 03:00 91 31 159/80 (106) 99 02/20/19 02:57 91 29 98 Bi-Pap 60 02/20/19 02:39 87 28 94 Bi-Pap 65 02/20/19 02:37 87 29 94 Facial 65 02/20/19 02:00 85 28 152/76 (101) 93 02/20/19 01:30 84 27 140/84 (102) 85 02/20/19 01:02 88 27 91 Facial 70 02/20/19 01:00 86 28 136/90 (105) 94 02/20/19 00:30 87 29 137/70 (92) 90 02/20/19 00:16 149/86 02/20/19 00:00 Bi-pap Bi-pap 02/20/19 00:00 70 02/20/19 00:00 98.6 89 29 149/86 (107) 90 02/20/19 00:00 83 02/19/19 23:30 88 27 139/90 (106) 87 02/19/19 23:00 87 26 143/78 (99) 93 02/19/19 22:57 84 29 95 Facial 70 02/19/19 22:00 89 27 129/110 (116) 90 02/19/19 21:39 138/96 02/19/19 21:38 138/96 02/19/19 21:00 95 23 148/92 (110) 98 02/19/19 20:53 101 26 97 Facial 75 02/19/19 20:39 103 138/96 02/19/19 20:00 Bi-pap Bi-pap 02/19/19 20:00 75 02/19/19 20:00 99.0 103 28 159/73 (101) 88 02/19/19 20:00 87 02/19/19 19:20 103 22 88 Cool Aerosol 10.0 50 02/19/19 19:13 86 Cool Aerosol 10.0 50 02/19/19 19:13 109 26 87 Cool Aerosol 50 02/19/19 19:00 104 30 138/96 (110) 86 02/19/19 18:30 104 30 164/88 (113) 89 02/19/19 18:00 101 25 166/78 (107) 93 02/19/19 17:33 159/88 02/19/19 17:30 103 26 179/65 (103) 92 02/19/19 17:00 104 27 159/80 (106) 91 02/19/19 16:30 104 27 150/111 (124) 91 02/19/19 16:00 105 02/19/19 16:00 Venturi Mask Venturi Mask 02/19/19 16:00 15.0 50 02/19/19 16:00 98.1 105 26 148/65 (92) 91 02/19/19 15:30 107 27 167/147 (154) 84 02/19/19 15:00 100 27 159/88 (111) 84 02/19/19 14:58 102 16 96 Cool Aerosol 10.0 50 02/19/19 14:48 102 16 95 Cool Aerosol 50 02/19/19 14:45 176/76 02/19/19 14:30 103 26 179/89 (119) 99 02/19/19 14:00 105 26 176/76 (109) 99 02/19/19 13:30 105 30 178/98 (124) 100 02/19/19 13:17 143/71 02/19/19 13:09 T-piece 10.0 50 02/19/19 13:07 95 Cool Aerosol 10.0 50 02/19/19 13:05 15.0 50 02/19/19 13:00 104 23 149/85 (106) 98 02/19/19 12:52 143/71 02/19/19 12:52 143/71 I&O Intake and Output 02/19/19 02/20/19 19:00 07:00 Intake Total 1075.166 ml 1069.0 ml Output Total 4450 ml 3125 ml Balance -3374.834 ml -2056.0 ml Free Water 200 ml 100 ml IV Total 875.166 ml 840.0 ml Tube Feeding 0 ml 129 ml Output Urine Total 4150 ml 3125 ml Stool Total 300 ml Dressing: saturated Wound: clean Cardiovascular: RSR Respiratory: decreased breath sounds Abdomen: soft, non-tender, non-distended, decreased bowel sounds Extremities: edema, no tenderness, no cyanosis Laboratory Tests Test 02/19/19 14:36 02/20/19 05:20 02/20/19 07:47 Arterial Blood pH 7.353 (7.350-7.450) 7.393 (7.350-7.450) Arterial Blood Partial Pressure CO2 38.0 mmHg (35.0-45.0) 38.8 mmHg (35.0-45.0) Arterial Blood Partial Pressure O2 67.6 mmHg (75.0-100.0) L 104.4 mmHg (75.0-100.0) H Arterial Blood HCO3 20.7 mmol/L (22.0-26.0) L 23.1 mmol/L (22.0-26.0) Arterial Blood Oxygen Saturation 91.2 % (95-100) L 97.0 % (95-100) Arterial Blood Base Excess -4.4 (-2-2) L -1.6 (-2-2) Benny Test Positive Positive White Blood Count 17.8 K/UL (4.8-10.8) #H Red Blood Count 3.23 M/UL (4.70-6.10) L Hemoglobin 9.1 G/DL (14.2-18.0) L Hematocrit 28.1 % (42.0-52.0) L Mean Corpuscular Volume 87 FL (80-99) Mean Corpuscular Hemoglobin 28.3 PG (27.0-31.0) Mean Corpuscular Hemoglobin Concent 32.6 G/DL (32.0-36.0) Red Cell Distribution Width 17.4 % (11.6-14.8) H Platelet Count 262 K/UL (150-450) Mean Platelet Volume 6.1 FL (6.5-10.1) L Neutrophils (%) (Auto) % (45.0-75.0) Lymphocytes (%) (Auto) % (20.0-45.0) Monocytes (%) (Auto) % (1.0-10.0) Eosinophils (%) (Auto) % (0.0-3.0) Basophils (%) (Auto) % (0.0-2.0) Differential Total Cells Counted 100 Neutrophils % (Manual) 95 % (45-75) H Lymphocytes % (Manual) 2 % (20-45) L Monocytes % (Manual) 3 % (1-10) Eosinophils % (Manual) 0 % (0-3) Basophils % (Manual) 0 % (0-2) Band Neutrophils 0 % (0-8) Platelet Estimate Adequate Platelet Morphology Normal Hypochromasia 2+ Anisocytosis 1+ Sodium Level 138 MMOL/L (136-145) Potassium Level 4.7 MMOL/L (3.5-5.1) Chloride Level 103 MMOL/L (98-107) Carbon Dioxide Level 26 MMOL/L (21-32) Anion Gap 9 mmol/L (5-15) Blood Urea Nitrogen 56 mg/dL (7-18) H Creatinine 2.3 MG/DL (0.55-1.30) H Estimat Glomerular Filtration Rate 29.2 mL/min (>60) Glucose Level 68 MG/DL (74-106) #L Uric Acid 2.8 MG/DL (2.6-7.2) Calcium Level 8.5 MG/DL (8.5-10.1) Phosphorus Level 4.8 MG/DL (2.5-4.9) Magnesium Level 1.8 MG/DL (1.8-2.4) Total Bilirubin 0.5 MG/DL (0.2-1.0) Aspartate Amino Transf (AST/SGOT) 89 U/L (15-37) H Alanine Aminotransferase (ALT/SGPT) 68 U/L (12-78) Alkaline Phosphatase 121 U/L (46-116) H C-Reactive Protein, Quantitative 5.4 mg/dL (0.00-0.90) H Pro-B-Type Natriuretic Peptide 30228 pg/mL (0-125) H Total Protein 5.7 G/DL (6.4-8.2) L Albumin 2.4 G/DL (3.4-5.0) L Globulin 3.3 g/dL Albumin/Globulin Ratio 0.7 (1.0-2.7) L Random Vancomycin Level 8.2 ug/mL Plan Problems: (1) Hypoxia Assessment & Plan: Extensive bilateral upper lobe infiltrates likely inflammatory/infectious. Correlate clinically. Tuberculosis is not excludable. Bilateral pleural effusions. Endotracheal tube and nasogastric tube in good position Atherosclerotic vascular disease (2) Respiratory distress Assessment & Plan: extubated doing better (3) Sepsis Assessment & Plan: Sepsis with tachycardia, leukocytosis, abnormal labs, respiratory distress on vent support via ET tube now extubated. acidosis. Cont IV abx CXR noted appreciate ICU team care abnormal lft's US noted will likely remove line soon now that improving will cont to follow with recs trend labs Rx as written Moiz Costa Feb 20, 2019 12:40
[2019-02-20] MEDS ORDERED: SULFAMETHOXAZOLE IV ONE (12:45)
[2019-02-20] MEDS ORDERED: TRIMETHOPRIM IV ONE (12:45)
[2019-02-20] MEDS ORDERED: D5W IV ONE (12:45)
--- NOTE | 2019-02-20 13:28 | Diagnostic Imaging Report ---
Indication: Dyspnea Comparison: 02/18/2019 A single view chest radiograph was obtained. Findings: There is enlargement of the cardiac silhouette with pulmonary vascular redistribution and prominence, hazy vessel margins and the suggestion of interstitial edema consistent with CHF. NG tube is in good position projected over the stomach lumen. IMPRESSION: Congestive heart failure with interval worsening
[2019-02-20] MEDS: Zosyn 3.375gm q8h **Extended infusion IVPB SCH ×4 (13:39→22:41)
--- NOTE | 2019-02-20 14:30 | NUR ---
NURSE NOTES: Pt was denaturing to 50%. No response to pain. Small amount of bleeding from mouth noted. HR jimenez down to 40's for a short time. Notified Dr Meredith regarding pt's current condition. RT at bedside bagging the patient. O2 sat went up to 98%. Bi-pap 100%. ABG drawn. Awaiting call back from Dr Meredith and ABG result.
--- NOTE | 2019-02-20 14:55 | NUR ---
NURSE NOTES: Pt was reintubated by Dr Flowers. Dr Flowers removed part of blood clot from pt's throat. ETT 7.5/24cm at right lip line. CXR ordered to confirm placement. Vent setting from Dr Meredith ordered, noted, and carried out.
[2019-02-20] MEDS ORDERED: Etomidate 40mg/20ml Inj IV ONE (15:50)
--- NOTE | 2019-02-20 15:56 | Diagnostic Imaging Report ---
Indication: Dyspnea Comparison: Earlier same day A single view chest radiograph was obtained. Findings: Intubation noted. The endotracheal tube is in good position about 3 cm above the christal. Cardiomegaly again noted. Moderate pulmonary vascular congestion demonstrated. IMPRESSION: Endotracheal tube in good position. CHF
--- NOTE | 2019-02-20 16:11 | NUR ---
NURSE NOTES: ETT placement confirmed by Dr Head. Pt is still bleeding from nose and mouth. Pt is awake and confused. On bilateral soft wrist restraints. Will continue to monitor.
--- NOTE | 2019-02-20 16:12 | Emergency Room Report ---
Physical Exam Called to intubate patient. Apparently the patient extubated himself yesterday. He has been on BiPAP. His pH now shows a respiratory acidosis and he is failing BiPAP. The patient is unable to answer questions at this time. Last 24 Hour Vital Signs Date Time Temp Pulse Resp B/P (MAP) Pulse Ox O2 Delivery O2 Flow Rate FiO2 02/20/19 15:26 81 28 100 02/20/19 15:24 Mechanical Ventilator 100 02/20/19 15:24 Mechanical Ventilator 100 02/20/19 15:00 78 25 142/72 (95) 100 02/20/19 14:55 Mechanical Ventilator Mechanical Ventilator 02/20/19 14:55 100 02/20/19 14:00 79 27 150/74 (99) 77 02/20/19 13:39 164/79 02/20/19 13:11 87 33 91 Facial 60 02/20/19 13:00 98.3 87 28 135/70 (91) 93 02/20/19 12:01 106/63 02/20/19 12:00 88 02/20/19 12:00 91 28 135/70 (91) 93 02/20/19 12:00 106/63 02/20/19 12:00 Venturi Mask Venturi Mask 02/20/19 12:00 15.0 02/20/19 11:05 Venturi Mask 14.0 55 02/20/19 11:05 118 24 95 02/20/19 11:05 Venturi Mask 14.0 55 02/20/19 11:00 88 23 143/125 (131) 95 02/20/19 10:00 85 26 176/74 (108) 93 02/20/19 09:45 85 22 98 02/20/19 09:00 78 20 149/61 (90) 100 02/20/19 08:32 78 162/71 02/20/19 08:32 78 162/71 02/20/19 08:00 Bi-pap Bi-pap 02/20/19 08:00 60 02/20/19 08:00 77 02/20/19 08:00 97.9 79 18 162/71 (101) 100 02/20/19 07:04 82 27 100 Bi-Pap 60 02/20/19 07:04 Bi-Pap 60 02/20/19 07:02 84 30 100 Facial 60 02/20/19 07:00 83 29 105/82 (90) 100 02/20/19 06:57 83 30 100 Bi-Pap 60 02/20/19 06:00 86 25 133/69 (90) 100 02/20/19 05:16 140/84 02/20/19 05:15 140/84 02/20/19 05:14 140/84 02/20/19 05:02 88 28 97 Facial 60 02/20/19 05:00 85 28 149/81 (103) 100 02/20/19 04:30 85 20 154/68 (96) 100 02/20/19 04:00 60 02/20/19 04:00 99.5 90 25 146/68 (94) 98 02/20/19 04:00 86 02/20/19 04:00 Bi-pap Bi-pap 02/20/19 03:00 91 31 159/80 (106) 99 02/20/19 02:57 91 29 98 Bi-Pap 60 02/20/19 02:39 87 28 94 Bi-Pap 65 02/20/19 02:37 87 29 94 Facial 65 02/20/19 02:00 85 28 152/76 (101) 93 02/20/19 01:30 84 27 140/84 (102) 85 02/20/19 01:02 88 27 91 Facial 70 02/20/19 01:00 86 28 136/90 (105) 94 02/20/19 00:30 87 29 137/70 (92) 90 02/20/19 00:16 149/86 02/20/19 00:00 Bi-pap Bi-pap 02/20/19 00:00 70 02/20/19 00:00 98.6 89 29 149/86 (107) 90 02/20/19 00:00 83 02/19/19 23:30 88 27 139/90 (106) 87 02/19/19 23:00 87 26 143/78 (99) 93 02/19/19 22:57 84 29 95 Facial 70 02/19/19 22:00 89 27 129/110 (116) 90 02/19/19 21:39 138/96 02/19/19 21:38 138/96 02/19/19 21:00 95 23 148/92 (110) 98 02/19/19 20:53 101 26 97 Facial 75 02/19/19 20:39 103 138/96 02/19/19 20:00 Bi-pap Bi-pap 02/19/19 20:00 75 02/19/19 20:00 99.0 103 28 159/73 (101) 88 02/19/19 20:00 87 02/19/19 19:20 103 22 88 Cool Aerosol 10.0 50 02/19/19 19:13 86 Cool Aerosol 10.0 50 02/19/19 19:13 109 26 87 Cool Aerosol 50 02/19/19 19:00 104 30 138/96 (110) 86 02/19/19 18:30 104 30 164/88 (113) 89 02/19/19 18:00 101 25 166/78 (107) 93 02/19/19 17:33 159/88 02/19/19 17:30 103 26 179/65 (103) 92 02/19/19 17:00 104 27 159/80 (106) 91 02/19/19 16:30 104 27 150/111 (124) 91 Sp02 EP Interpretation: reviewed, abnormal - Interpreted as low by me General Appearance: lethargic, other - Opens eyes Head: normocephalic, atraumatic Eyes: bilateral eye normal inspection, bilateral eye PERRL ENT: moist mucus membranes, other - Large clot material in the posterior pharynx not obstructing the upper airway at the moment, NG tube is present and there is blood from his nares Neck: supple Respiratory: decreased breath sounds, other - Decrease tidal volume Cardiovascular #1: regular rate, rhythm Gastrointestinal: decreased bowel sounds, overweight Genitourinary: other - Simon Musculoskeletal: other - Venous compression stockings Neurologic: motor weakness - Weakness all 4, other - Lethargic but opens eyes on command Psychiatric: other - Lethargic Skin: no rash Intubation Intubation : Consent: Emergent Intubation Method: orotracheal Tube Size (cm): 7.5 Medications: Etomidate - Milligrams Breath Sounds after Intubation: equal Intubation Complications: no complications Post Intubation Xray: Yes Attempts: One Patient Tolerated: Well Complications: None Progress There was a pharyngeal clot. This is not blocking the airway. However attempts at removal were unsuccessful as the equipment was not available in the ICU. Medical Decision Making Diagnostic Impression: Primary Impression: Respiratory failure Qualified Codes: J96.01 - Acute respiratory failure with hypoxia; J96.02 - Acute respiratory failure with hypercapnia Additional Impression: Pharyngeal clot ER Course Patient with sepsis and pneumonia and previous extubation failed BiPAP. Intubation is indicated. During intubation there is a large pharyngeal clot. Part of this was removed however due to lack of equipment unable to remove the whole clot. This is not blocking the airway. Patient tolerated the procedure well. Post x-ray with appropriate placement of endotracheal tube and fairly large stomach bubble. Laboratory Tests Test 02/19/19 14:36 02/20/19 05:20 02/20/19 07:47 02/20/19 14:30 Arterial Blood pH 7.353 (7.350-7.450) 7.393 (7.350-7.450) 7.126 (7.350-7.450) Arterial Blood Partial Pressure CO2 38.0 mmHg (35.0-45.0) 38.8 mmHg (35.0-45.0) 82.4 mmHg (35.0-45.0) *H Arterial Blood Partial Pressure O2 67.6 mmHg (75.0-100.0) L 104.4 mmHg (75.0-100.0) H 71.4 mmHg (75.0-100.0) L Arterial Blood HCO3 20.7 mmol/L (22.0-26.0) L 23.1 mmol/L (22.0-26.0) 26.6 mmol/L (22.0-26.0) H Arterial Blood Oxygen Saturation 91.2 % (95-100) L 97.0 % (95-100) 86.7 % (95-100) *L Arterial Blood Base Excess -4.4 (-2-2) L -1.6 (-2-2) -3.5 (-2-2) L Benny Test Positive Positive Positive White Blood Count 17.8 K/UL (4.8-10.8) #H Red Blood Count 3.23 M/UL (4.70-6.10) L Hemoglobin 9.1 G/DL (14.2-18.0) L Hematocrit 28.1 % (42.0-52.0) L Mean Corpuscular Volume 87 FL (80-99) Mean Corpuscular Hemoglobin 28.3 PG (27.0-31.0) Mean Corpuscular Hemoglobin Concent 32.6 G/DL (32.0-36.0) Red Cell Distribution Width 17.4 % (11.6-14.8) H Platelet Count 262 K/UL (150-450) Mean Platelet Volume 6.1 FL (6.5-10.1) L Neutrophils (%) (Auto) % (45.0-75.0) Lymphocytes (%) (Auto) % (20.0-45.0) Monocytes (%) (Auto) % (1.0-10.0) Eosinophils (%) (Auto) % (0.0-3.0) Basophils (%) (Auto) % (0.0-2.0) Differential Total Cells Counted 100 Neutrophils % (Manual) 95 % (45-75) H Lymphocytes % (Manual) 2 % (20-45) L Monocytes % (Manual) 3 % (1-10) Eosinophils % (Manual) 0 % (0-3) Basophils % (Manual) 0 % (0-2) Band Neutrophils 0 % (0-8) Platelet Estimate Adequate Platelet Morphology Normal Hypochromasia 2+ Anisocytosis 1+ Sodium Level 138 MMOL/L (136-145) Potassium Level 4.7 MMOL/L (3.5-5.1) Chloride Level 103 MMOL/L (98-107) Carbon Dioxide Level 26 MMOL/L (21-32) Anion Gap 9 mmol/L (5-15) Blood Urea Nitrogen 56 mg/dL (7-18) H Creatinine 2.3 MG/DL (0.55-1.30) H Estimate Glomerular Filtration Rate 29.2 mL/min (>60) Glucose Level 68 MG/DL (74-106) #L Uric Acid 2.8 MG/DL (2.6-7.2) Calcium Level 8.5 MG/DL (8.5-10.1) Phosphorus Level 4.8 MG/DL (2.5-4.9) Magnesium Level 1.8 MG/DL (1.8-2.4) Total Bilirubin 0.5 MG/DL (0.2-1.0) Aspartate Amino Transferase (AST) 89 U/L (15-37) H Alanine Aminotransferase (ALT) 68 U/L (12-78) Alkaline Phosphatase 121 U/L (46-116) H C-Reactive Protein, Quantitative 5.4 mg/dL (0.00-0.90) H Pro-B-Type Natriuretic Peptide 46046 pg/mL (0-125) H Total Protein 5.7 G/DL (6.4-8.2) L Albumin 2.4 G/DL (3.4-5.0) L Globulin 3.3 g/dL Albumin/Globulin Ratio 0.7 (1.0-2.7) L Random Vancomycin Level 8.2 ug/mL Test 02/20/19 16:30 02/20/19 18:45 Arterial Blood pH 7.368 (7.350-7.450) Arterial Blood Partial Pressure CO2 43.1 mmHg (35.0-45.0) Arterial Blood Partial Pressure O2 245.8 mmHg (75.0-100.0) H Arterial Blood HCO3 24.2 mmol/L (22.0-26.0) Arterial Blood Oxygen Saturation 99.0 % (95-100) Arterial Blood Base Excess -1.1 (-2-2) Benny Test Positive White Blood Count 12.7 K/UL (4.8-10.8) H Red Blood Count 2.94 M/UL (4.70-6.10) L Hemoglobin 8.1 G/DL (14.2-18.0) L Hematocrit 25.2 % (42.0-52.0) L Mean Corpuscular Volume 86 FL (80-99) Mean Corpuscular Hemoglobin 27.6 PG (27.0-31.0) Mean Corpuscular Hemoglobin Concent 32.3 G/DL (32.0-36.0) Red Cell Distribution Width 16.4 % (11.6-14.8) H Platelet Count 201 K/UL (150-450) Mean Platelet Volume 5.5 FL (6.5-10.1) L Neutrophils (%) (Auto) 91.4 % (45.0-75.0) H Lymphocytes (%) (Auto) 3.9 % (20.0-45.0) L Monocytes (%) (Auto) 4.4 % (1.0-10.0) Eosinophils (%) (Auto) 0.0 % (0.0-3.0) Basophils (%) (Auto) 0.3 % (0.0-2.0) Sodium Level 138 MMOL/L (136-145) Potassium Level 4.7 MMOL/L (3.5-5.1) Chloride Level 103 MMOL/L (98-107) Carbon Dioxide Level 23 MMOL/L (21-32) Anion Gap 12 mmol/L (5-15) Blood Urea Nitrogen 59 mg/dL (7-18) H Creatinine 2.3 MG/DL (0.55-1.30) H Estimate Glomerular Filtration Rate 29.2 mL/min (>60) Glucose Level 121 MG/DL (74-106) H Calcium Level 8.2 MG/DL (8.5-10.1) L Total Bilirubin 0.6 MG/DL (0.2-1.0) Aspartate Amino Transferase (AST) 92 U/L (15-37) H Alanine Aminotransferase (ALT) 71 U/L (12-78) Alkaline Phosphatase 106 U/L (46-116) Total Protein 5.0 G/DL (6.4-8.2) L Albumin 2.7 G/DL (3.4-5.0) L Globulin 2.3 g/dL Albumin/Globulin Ratio 1.2 (1.0-2.7) Rhythm Strip Diag. Results EP Interpretation: yes Rhythm: NSR, no PVC's, no ectopy Chest X-Ray Diagnostic Results Chest X-Ray Diagnostic Results : Chest X-Ray Ordered: Yes # of Views/Limited/Complete: 1 View Indication: Other Interpretation: other - Bilateral infiltrates, endotracheal tube appropriately placed, large stomach bubble and increased heart size Impression: Other Electronically Signed by: Electronically signed by Salty Flowers MD Last Vital Signs Date Time Temp Pulse Resp B/P (MAP) Pulse Ox O2 Delivery O2 Flow Rate FiO2 02/20/19 15:26 81 28 100 02/20/19 15:24 Mechanical Ventilator 02/20/19 15:00 142/72 (95) 100 02/20/19 13:00 98.3 02/20/19 12:00 15.0 Status: worsened Disposition: ADMITTED INPATIENT Condition: Critical Referrals: NON PHYSICIAN (PCP) Salty Flowers MD Feb 20, 2019 16:12
[2019-02-20] MEDS: LORazepam Inj 2mg/ml 1ml IV PRN ×2 (16:42→21:04)
--- NOTE | 2019-02-20 16:46 | NUR ---
NURSE NOTES: Notified Dr Meredith regarding post-intubation ABG result and CXR result. No new orders.
--- NOTE | 2019-02-20 17:26 | Infectious Diseases Prog Note ---
Assessment/Plan Assessment/Plan A) 1) pneumonia - ? new aspiration/hcap, ? CAP, ? pcp, ? fungal (cryptococcus/ cocci), sepsis, leukocytosis, ? line infection, ARDS, chf/edema 2) intubated on vent, s/p bronchoscopy, ARF, ? 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, on anti-retroviral treatment 4) rule out TB pna, in isolation - afb smear on bronchoscopy is negative, TB spot negative 5) pmh noted - hypertension, ckd, anemia, dm, cva, tia, migraines 6) allergies - nkda, sh-negative, fh-nc, mar noted 7) d/w RN P) 1) zosyn, iv bactrim (12/12/18), diflucan, iv vancomycin 2) re-check cultures for leukocytosis, monitor labs and chest x-ray 3) diarrhea may be secondary to colace and leukocytosis secondary to steroids 4) monitor labs and chest x-ray 5) critical condition, icu supportive care, vent support 6) d/w curriculum supervisor at 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 about management 7) please see multiple orders Subjective Constitutional: Reports: fever - lgt, fatigue, other - re-intubated HEENT: Reports: congestion Respiratory: Reports: shortness of breath Cardiovascular: Reports: other - no pressors Gastrointestinal/Abdominal: Reports: diarrhea, other - + rectal tube ; Denies: nausea, vomiting Genitourinary: Reports: other - + smith Neurologic: Reports: other - on vent, opens eyes Psychiatric: Reports: other - weak Skin: Denies: rash Hematologic: Denies: bleeding Musculoskeletal: Reports: other - NA Allergies: Coded Allergies: No Known Allergies (Unverified , 02/05/13) Objective Vital Signs Last 24 Hour Vital Signs Date Time Temp Pulse Resp B/P (MAP) Pulse Ox O2 Delivery O2 Flow Rate FiO2 02/20/19 16:38 80 02/20/19 16:00 79 02/20/19 16:00 Mechanical Ventilator Mechanical Ventilator 02/20/19 16:00 84 16 148/77 (100) 100 02/20/19 15:26 81 28 100 02/20/19 15:24 Mechanical Ventilator 100 02/20/19 15:24 Mechanical Ventilator 100 02/20/19 15:00 78 25 142/72 (95) 100 02/20/19 14:55 Mechanical Ventilator Mechanical Ventilator 02/20/19 14:55 100 02/20/19 14:00 79 27 150/74 (99) 77 02/20/19 13:39 164/79 02/20/19 13:11 87 33 91 Facial 60 02/20/19 13:00 98.3 87 28 135/70 (91) 93 02/20/19 12:01 106/63 02/20/19 12:00 88 02/20/19 12:00 91 28 135/70 (91) 93 02/20/19 12:00 106/63 02/20/19 12:00 Venturi Mask Venturi Mask 02/20/19 12:00 15.0 02/20/19 11:05 Venturi Mask 14.0 55 02/20/19 11:05 118 24 95 02/20/19 11:05 Venturi Mask 14.0 55 02/20/19 11:00 88 23 143/125 (131) 95 02/20/19 10:00 85 26 176/74 (108) 93 02/20/19 09:45 85 22 98 02/20/19 09:00 78 20 149/61 (90) 100 02/20/19 08:32 78 162/71 02/20/19 08:32 78 162/71 02/20/19 08:00 Bi-pap Bi-pap 02/20/19 08:00 60 02/20/19 08:00 77 02/20/19 08:00 97.9 79 18 162/71 (101) 100 02/20/19 07:04 82 27 100 Bi-Pap 60 02/20/19 07:04 Bi-Pap 60 02/20/19 07:02 84 30 100 Facial 60 02/20/19 07:00 83 29 105/82 (90) 100 02/20/19 06:57 83 30 100 Bi-Pap 60 02/20/19 06:00 86 25 133/69 (90) 100 02/20/19 05:16 140/84 02/20/19 05:15 140/84 02/20/19 05:14 140/84 02/20/19 05:02 88 28 97 Facial 60 02/20/19 05:00 85 28 149/81 (103) 100 02/20/19 04:30 85 20 154/68 (96) 100 02/20/19 04:00 60 02/20/19 04:00 99.5 90 25 146/68 (94) 98 02/20/19 04:00 86 02/20/19 04:00 Bi-pap Bi-pap 02/20/19 03:00 91 31 159/80 (106) 99 02/20/19 02:57 91 29 98 Bi-Pap 60 02/20/19 02:39 87 28 94 Bi-Pap 65 02/20/19 02:37 87 29 94 Facial 65 02/20/19 02:00 85 28 152/76 (101) 93 02/20/19 01:30 84 27 140/84 (102) 85 02/20/19 01:02 88 27 91 Facial 70 02/20/19 01:00 86 28 136/90 (105) 94 02/20/19 00:30 87 29 137/70 (92) 90 02/20/19 00:16 149/86 02/20/19 00:00 Bi-pap Bi-pap 02/20/19 00:00 70 02/20/19 00:00 98.6 89 29 149/86 (107) 90 02/20/19 00:00 83 02/19/19 23:30 88 27 139/90 (106) 87 02/19/19 23:00 87 26 143/78 (99) 93 02/19/19 22:57 84 29 95 Facial 70 02/19/19 22:00 89 27 129/110 (116) 90 02/19/19 21:39 138/96 02/19/19 21:38 138/96 02/19/19 21:00 95 23 148/92 (110) 98 02/19/19 20:53 101 26 97 Facial 75 02/19/19 20:39 103 138/96 02/19/19 20:00 Bi-pap Bi-pap 02/19/19 20:00 75 02/19/19 20:00 99.0 103 28 159/73 (101) 88 02/19/19 20:00 87 02/19/19 19:20 103 22 88 Cool Aerosol 10.0 50 02/19/19 19:13 86 Cool Aerosol 10.0 50 02/19/19 19:13 109 26 87 Cool Aerosol 50 02/19/19 19:00 104 30 138/96 (110) 86 02/19/19 18:30 104 30 164/88 (113) 89 02/19/19 18:00 101 25 166/78 (107) 93 02/19/19 17:33 159/88 02/19/19 17:30 103 26 179/65 (103) 92 Height (Feet): 6 Height (Inches): 0.00 Weight (Pounds): 260 General Appearance: other - on vent, no pressors HEENT: normocephalic, atraumatic, anicteric, no JVD, other - oral - intubated, on vent Respiratory/Chest: crackles/rales, rhonchi - bilaterally Cardiovascular: normal rate, regular rhythm, no gallop/murmur, no JVD Abdomen: soft, non tender, no organomegaly, non distended Genitourinary: other - + smith Extremities: no cyanosis Skin: no rash Neurologic/Psychiatric: other - opens eyes, on vent, + rectal tube and diarrhea but on colace Lymphatic: no neck adenopathy Musculoskeletal: no effusion Objective Chest x-ray - 02/10/19 - COMPARISON: Chest radiograph on 02/09/2019 FINDINGS: Hardware: Endotracheal tube terminates in the region of the mid thoracic trachea. Enteric tube courses past the diaphragm and out of the field of view. Lungs/pleura: Slightly decreased but persistent patchy consolidations in the right lung. Slightly decreased left perihilar opacities/consolidations. Possible small bilateral pleural effusions. Heart/mediastinum: Stable mild enlargement of the cardiomediastinal silhouette. Soft tissues: Unremarkable. Bones: No acute fracture. Degenerative changes of the visualized right acromioclavicular joint. Degenerative changes of the spine. Upper abdomen: Normal. 02/11/19 - chest x-ray - IMPRESSION: Slightly decreased but persistent patchy consolidations in the right lung. Slightly decreased left perihilar opacities. Findings may IMPRESSION: 1. No significant change in the interstitial and alveolar opacities in bilateral lungs. 2. Possible small bilateral pleural effusions, unchanged. represent infectious/inflammatory process and/or pulmonary edema. Possible small bilateral pleural effusions. 02/16/19 - chest x-ray - Impression: Worsening of aeration with increasing interstitial and bilateral predominantly perihilar airspace disease. Findings likely related to worsening CHF/pulmonary edema. Superimposed pneumonia to be excluded clinically. Follow-up recommended. Chest x-ray - 02/18/19 - COMPARISON: Chest radiograph on 02/16/2019 FINDINGS: Hardware: Endotracheal tube terminates in the region of the mid thoracic trachea. Enteric tube courses past the diaphragm and out of the field of view. Lungs/pleura: Slightly decreased but persistent hazy and interstitial opacities. Persistent small left pleural effusion. Heart/mediastinum: Stable mild enlargement of the cardiomediastinal silhouette. Soft tissues: Unremarkable. Bones: No acute fracture. Upper abdomen: Normal. IMPRESSION: Slightly decreased but persistent changes suggesting pulmonary edema. Component of infectious/inflammatory process is not excluded. Persistent small left pleural effusion. Chest x-ray - 02/20/19 - Procedure: XRAY Chest 1v Indication: Dyspnea Comparison: Earlier same day A single view chest radiograph was obtained. Findings: Intubation noted. The endotracheal tube is in good position about 3 cm above the christal. Cardiomegaly again noted. Moderate pulmonary vascular congestion demonstrated. IMPRESSION: Endotracheal tube in good position. CHF Microbiology Date/Time Source Procedure Growth Status 02/06/19 14:15 Blood Blood Culture - Final NO GROWTH AFTER 5 DAYS Complete 02/18/19 10:00 Sputum Induced Gram Stain - Final Resulted 02/18/19 10:00 Sputum Induced Sputum Culture - Preliminary NORMAL UPPER RESPIRATORY ADRIANA PRESENT Resulted 02/06/19 17:10 Rectal Mucosa - Final NO CARBAPENEM-RESISTANT ENTEROBACTERI... Complete Microbiology Date/Time Source Procedure Growth Status 02/18/19 10:00 Sputum Induced Gram Stain - Final Resulted 02/18/19 10:00 Sputum Induced Sputum Culture - Preliminary NORMAL UPPER RESPIRATORY ADRIANA PRESENT Resulted Laboratory Tests Test 02/20/19 05:20 02/20/19 07:47 02/20/19 14:30 02/20/19 16:30 White Blood Count 17.8 K/UL (4.8-10.8) #H Red Blood Count 3.23 M/UL (4.70-6.10) L Hemoglobin 9.1 G/DL (14.2-18.0) L Hematocrit 28.1 % (42.0-52.0) L Mean Corpuscular Volume 87 FL (80-99) Mean Corpuscular Hemoglobin 28.3 PG (27.0-31.0) Mean Corpuscular Hemoglobin Concent 32.6 G/DL (32.0-36.0) Red Cell Distribution Width 17.4 % (11.6-14.8) H Platelet Count 262 K/UL (150-450) Mean Platelet Volume 6.1 FL (6.5-10.1) L Neutrophils (%) (Auto) % (45.0-75.0) Lymphocytes (%) (Auto) % (20.0-45.0) Monocytes (%) (Auto) % (1.0-10.0) Eosinophils (%) (Auto) % (0.0-3.0) Basophils (%) (Auto) % (0.0-2.0) Differential Total Cells Counted 100 Neutrophils % (Manual) 95 % (45-75) H Lymphocytes % (Manual) 2 % (20-45) L Monocytes % (Manual) 3 % (1-10) Eosinophils % (Manual) 0 % (0-3) Basophils % (Manual) 0 % (0-2) Band Neutrophils 0 % (0-8) Platelet Estimate Adequate Platelet Morphology Normal Hypochromasia 2+ Anisocytosis 1+ Sodium Level 138 MMOL/L (136-145) Potassium Level 4.7 MMOL/L (3.5-5.1) Chloride Level 103 MMOL/L (98-107) Carbon Dioxide Level 26 MMOL/L (21-32) Anion Gap 9 mmol/L (5-15) Blood Urea Nitrogen 56 mg/dL (7-18) H Creatinine 2.3 MG/DL (0.55-1.30) H Estimat Glomerular Filtration Rate 29.2 mL/min (>60) Glucose Level 68 MG/DL (74-106) #L Uric Acid 2.8 MG/DL (2.6-7.2) Calcium Level 8.5 MG/DL (8.5-10.1) Phosphorus Level 4.8 MG/DL (2.5-4.9) Magnesium Level 1.8 MG/DL (1.8-2.4) Total Bilirubin 0.5 MG/DL (0.2-1.0) Aspartate Amino Transf (AST/SGOT) 89 U/L (15-37) H Alanine Aminotransferase (ALT/SGPT) 68 U/L (12-78) Alkaline Phosphatase 121 U/L (46-116) H C-Reactive Protein, Quantitative 5.4 mg/dL (0.00-0.90) H Pro-B-Type Natriuretic Peptide 25052 pg/mL (0-125) H Total Protein 5.7 G/DL (6.4-8.2) L Albumin 2.4 G/DL (3.4-5.0) L Globulin 3.3 g/dL Albumin/Globulin Ratio 0.7 (1.0-2.7) L Random Vancomycin Level 8.2 ug/mL Arterial Blood pH 7.393 (7.350-7.450) 7.126 (7.350-7.450) 7.368 (7.350-7.450) Arterial Blood Partial Pressure CO2 38.8 mmHg (35.0-45.0) 82.4 mmHg (35.0-45.0) *H 43.1 mmHg (35.0-45.0) Arterial Blood Partial Pressure O2 104.4 mmHg (75.0-100.0) H 71.4 mmHg (75.0-100.0) L 245.8 mmHg (75.0-100.0) H Arterial Blood HCO3 23.1 mmol/L (22.0-26.0) 26.6 mmol/L (22.0-26.0) H 24.2 mmol/L (22.0-26.0) Arterial Blood Oxygen Saturation 97.0 % (95-100) 86.7 % (95-100) *L 99.0 % (95-100) Arterial Blood Base Excess -1.6 (-2-2) -3.5 (-2-2) L -1.1 (-2-2) Benny Test Positive Positive Positive Current Medications Medications (Trade) Dose Ordered Sig/Marquis Route PRN Reason Start Time Stop Time Status Last Admin Dose Admin Acetaminophen (Tylenol) 650 mg Q4H PRN ORAL Mild Pain (Pain Scale 1-3) 02/07/19 11:15 03/08/19 17:29 02/07/19 23:01 Acetaminophen/ Butalbital/ Caffeine (Fioricet) 1 tab Q8H PRN ORAL For Headache 02/08/19 17:15 03/10/19 17:14 Albuterol/ Ipratropium (Albuterol/ Ipratropium) 3 ml Q4HRT HHN 02/20/19 03:00 02/25/19 02:59 02/20/19 07:05 Amlodipine Besylate (Norvasc) 10 mg DAILY NG 02/15/19 09:00 03/14/19 15:59 02/20/19 08:32 Artificial Tears (Lacri-Lube) 1 applic AC+HS BOTH EYES 02/18/19 06:30 03/20/19 06:29 02/20/19 12:00 Aspirin (Ecotrin) 81 mg DAILY ORAL 02/08/19 09:00 03/09/19 08:59 02/20/19 08:33 Atorvastatin Calcium (Lipitor) 10 mg QHS ORAL 02/17/19 21:00 03/10/19 20:59 02/19/19 20:39 Bisacodyl (Dulcolax) 5 mg DAILYPRN PRN ORAL Constipation 02/08/19 17:15 03/10/19 17:14 02/18/19 20:13 Chlorhexidine Gluconate (Jessy-Hex 2%) 1 applic DAILY@2000 TOPIC 02/13/19 20:00 03/15/19 19:59 02/19/19 20:38 Clonidine HCl (Catapres Tab) 0.1 mg EVERY 6 HOURS NG 02/20/19 12:00 03/19/19 13:59 02/20/19 12:01 Dextrose (Dextrose 50%) 25 ml Q30M PRN IV Hypoglycemia 02/20/19 06:45 03/22/19 06:44 Dextrose (Dextrose 50%) 50 ml Q30M PRN IV Hypoglycemia 02/20/19 06:45 03/22/19 06:44 02/20/19 08:49 Docusate Sodium (Colace) 100 mg TID GT 02/12/19 18:00 03/12/19 08:59 02/20/19 13:39 Enoxaparin Sodium (Lovenox) 40 mg Q24H SUBQ 02/07/19 21:00 03/08/19 20:59 02/19/19 20:40 Fluconazole/ Sodium Chloride 100 ml @ 100 mls/hr Q24H IV 02/14/19 18:00 02/21/19 17:59 02/19/19 17:33 Guaifenesin (Mucinex ER) 600 mg TWICE A DAY ORAL 02/07/19 18:00 03/09/19 08:59 02/20/19 08:32 Hydralazine HCl (Apresoline) 10 mg Q4H PRN IV bp over 165 syst 02/17/19 10:15 03/19/19 10:14 02/19/19 14:45 Hydralazine HCl (Apresoline) 100 mg Q8HR NG 02/19/19 22:00 03/21/19 21:59 02/20/19 13:39 Insulin Aspart (NovoLOG) EVERY 4 HOURS SUBQ 02/15/19 21:00 03/17/19 20:59 02/19/19 20:41 Insulin Detemir (Levemir) 10 units BID SUBQ 02/20/19 09:00 03/22/19 08:59 Isosorbide Dinitrate (Isordil) 20 mg Q6HR NG 02/15/19 12:00 03/15/19 12:59 02/20/19 12:00 Lansoprazole (Prevacid) 30 mg BID NG 02/12/19 18:00 03/14/19 17:59 02/20/19 08:33 Lorazepam (Ativan 2mg/ml 1ml) 2 mg Q2H PRN IV agitation/restlessness 02/19/19 22:00 02/26/19 21:44 02/20/19 16:42 Lorazepam (Ativan) 1 mg Q4H PRN ORAL For Anxiety 02/19/19 15:15 02/26/19 15:14 02/19/19 15:21 Methylprednisolone Sodium Succinate (Solu-MEDROL) 10 mg EVERY 12 HOURS IVP 02/19/19 21:00 03/12/19 20:59 02/20/19 08:33 Metolazone (Zaroxolyn) 10 mg DAILY NG 02/19/19 10:00 03/21/19 09:59 02/20/19 08:33 Metoprolol Tartrate (Lopressor) 100 mg Q12HR ORAL 02/07/19 21:00 03/08/19 20:59 02/20/19 08:32 Midazolam HCl (Versed 2mg/2ml vial) 1 mg Q2H PRN IVP Agitation 02/13/19 08:45 03/15/19 08:44 02/14/19 05:49 Neomycin/ Polymyxin/ Dexamethasone (Maxitrol Opth Oint) 1 applic BEDTIME BOTH EYES 02/18/19 21:00 03/20/19 20:59 02/19/19 20:38 Nitroglycerin (Ntg) 0.4 mg Q5M PRN SL Prn Chest Pain 02/07/19 11:00 03/08/19 17:29 02/08/19 07:42 Ondansetron HCl (Zofran) 4 mg Q6H PRN IVP Nausea & Vomiting 02/07/19 11:15 03/08/19 11:14 02/09/19 00:58 Patient Own Medication (Patient's Own Med) 1 ea BID ORAL 02/07/19 18:00 03/09/19 17:59 02/20/19 08:40 Patient Own Medication (Patient's Own Med) 1 ea Q48H ORAL 02/18/19 09:00 03/20/19 08:59 02/20/19 08:33 Patient Own Medication (Patient's Own Med) 2 ea DAILY ORAL 02/08/19 09:00 03/10/19 08:59 02/20/19 08:39 Piperacillin Sod/ Tazobactam Sod 3.375 gm/Sodium Chloride 110 ml @ 27.5 mls/hr EVERY 8 HOURS IVPB 02/20/19 14:00 02/25/19 13:59 02/20/19 13:39 Polyethylene Glycol (Miralax) 17 gm BEDTIME ORAL 02/08/19 21:00 03/10/19 20:59 02/19/19 20:39 Sennosides (Senokot) 8.6 mg DAILY ORAL 02/13/19 12:00 03/15/19 11:59 02/20/19 08:39 Trimethoprim/ Sulfamethoxazole 25 ml/Dextrose 575 ml @ 383.333 mls/hr [id number] BACTRIM IV 02/20/19 12:00 02/27/19 11:59 02/20/19 13:39 Vancomycin HCl (Vanco rx to dose) 1 ea DAILY PRN MISC . 02/10/19 19:45 03/12/19 19:44 Vancomycin HCl/ Dextrose 275 ml @ 183.333 mls/hr Q18H IVPB 02/21/19 03:00 02/26/19 02:59 Russ Tony MD Feb 20, 2019 17:26
--- NOTE | 2019-02-20 19:11 | Cardiac Electrophysiology PN ---
Assessment/Plan Assessment/Plan 1. Non-ST elevation myocardial infarction with peak troponin of more than 10. Down to 2 , up to 7 and down to 3.5 again . EKG shows nonspecific ST-T wave abnormalities. Continue aspirin, Lipitor, Imdur and metoprolol 100 mg b.i.d. Cardiac catheterization after is stabilized. 2. Hypertension. Continue metoprolol 100 mg bid, Imdur 30 mg daily and hydralazine 100 q 8 hr 3. Respiratory failure due to Multilobar Pneumonia. Extubated 02/19/19. Reintubated 02/20/19 4. Hyperlipidemia. On Lipitor. 5. Human immunodeficiency virus. On anti-retroviral therapy with undetectable viral load. 6. ARF Cr 3.5. Cr down to 2.3 DW RN Subjective Subjective In ICU was reintubated today as was having bleeding from nose and mouth. Also has NG tube. Objective Last 24 Hour Vital Signs Date Time Temp Pulse Resp B/P (MAP) Pulse Ox O2 Delivery O2 Flow Rate FiO2 02/20/19 18:00 86 19 156/71 (99) 99 02/20/19 17:50 60 02/20/19 17:49 156/71 02/20/19 17:48 156/71 02/20/19 17:06 85 33 60 02/20/19 17:00 82 25 167/68 (101) 100 02/20/19 16:38 80 02/20/19 16:00 79 02/20/19 16:00 Mechanical Ventilator Mechanical Ventilator 02/20/19 16:00 84 16 148/77 (100) 100 02/20/19 15:26 81 28 100 02/20/19 15:24 Mechanical Ventilator 100 02/20/19 15:24 Mechanical Ventilator 100 02/20/19 15:00 78 25 142/72 (95) 100 02/20/19 14:55 Mechanical Ventilator Mechanical Ventilator 02/20/19 14:55 100 02/20/19 14:00 79 27 150/74 (99) 77 02/20/19 13:39 164/79 02/20/19 13:11 87 33 91 Facial 60 02/20/19 13:00 98.3 87 28 135/70 (91) 93 02/20/19 12:01 106/63 02/20/19 12:00 88 02/20/19 12:00 91 28 135/70 (91) 93 02/20/19 12:00 106/63 02/20/19 12:00 Venturi Mask Venturi Mask 02/20/19 12:00 15.0 02/20/19 11:05 Venturi Mask 14.0 55 02/20/19 11:05 118 24 95 02/20/19 11:05 Venturi Mask 14.0 55 02/20/19 11:00 88 23 143/125 (131) 95 02/20/19 10:00 85 26 176/74 (108) 93 02/20/19 09:45 85 22 98 02/20/19 09:00 78 20 149/61 (90) 100 02/20/19 08:32 78 162/71 02/20/19 08:32 78 162/71 02/20/19 08:00 Bi-pap Bi-pap 02/20/19 08:00 60 02/20/19 08:00 77 02/20/19 08:00 97.9 79 18 162/71 (101) 100 02/20/19 07:04 82 27 100 Bi-Pap 60 02/20/19 07:04 Bi-Pap 60 02/20/19 07:02 84 30 100 Facial 60 02/20/19 07:00 83 29 105/82 (90) 100 02/20/19 06:57 83 30 100 Bi-Pap 60 02/20/19 06:00 86 25 133/69 (90) 100 02/20/19 05:16 140/84 02/20/19 05:15 140/84 02/20/19 05:14 140/84 02/20/19 05:02 88 28 97 Facial 60 02/20/19 05:00 85 28 149/81 (103) 100 02/20/19 04:30 85 20 154/68 (96) 100 02/20/19 04:00 60 02/20/19 04:00 99.5 90 25 146/68 (94) 98 02/20/19 04:00 86 02/20/19 04:00 Bi-pap Bi-pap 02/20/19 03:00 91 31 159/80 (106) 99 02/20/19 02:57 91 29 98 Bi-Pap 60 02/20/19 02:39 87 28 94 Bi-Pap 65 02/20/19 02:37 87 29 94 Facial 65 02/20/19 02:00 85 28 152/76 (101) 93 02/20/19 01:30 84 27 140/84 (102) 85 02/20/19 01:02 88 27 91 Facial 70 02/20/19 01:00 86 28 136/90 (105) 94 02/20/19 00:30 87 29 137/70 (92) 90 02/20/19 00:16 149/86 02/20/19 00:00 Bi-pap Bi-pap 02/20/19 00:00 70 02/20/19 00:00 98.6 89 29 149/86 (107) 90 02/20/19 00:00 83 02/19/19 23:30 88 27 139/90 (106) 87 02/19/19 23:00 87 26 143/78 (99) 93 02/19/19 22:57 84 29 95 Facial 70 02/19/19 22:00 89 27 129/110 (116) 90 02/19/19 21:39 138/96 02/19/19 21:38 138/96 02/19/19 21:00 95 23 148/92 (110) 98 02/19/19 20:53 101 26 97 Facial 75 02/19/19 20:39 103 138/96 02/19/19 20:00 Bi-pap Bi-pap 02/19/19 20:00 75 02/19/19 20:00 99.0 103 28 159/73 (101) 88 02/19/19 20:00 87 02/19/19 19:20 103 22 88 Cool Aerosol 10.0 50 02/19/19 19:13 86 Cool Aerosol 10.0 50 02/19/19 19:13 109 26 87 Cool Aerosol 50 Intake and Output 02/19/19 02/20/19 19:00 07:00 Intake Total 1075.166 ml 1069.0 ml Output Total 4450 ml 3125 ml Balance -3374.834 ml -2056.0 ml Free Water 200 ml 100 ml IV Total 875.166 ml 840.0 ml Tube Feeding 0 ml 129 ml Output Urine Total 4150 ml 3125 ml Stool Total 300 ml Laboratory Tests Test 02/20/19 05:20 02/20/19 07:47 02/20/19 14:30 02/20/19 16:30 White Blood Count 17.8 K/UL (4.8-10.8) #H Red Blood Count 3.23 M/UL (4.70-6.10) L Hemoglobin 9.1 G/DL (14.2-18.0) L Hematocrit 28.1 % (42.0-52.0) L Mean Corpuscular Volume 87 FL (80-99) Mean Corpuscular Hemoglobin 28.3 PG (27.0-31.0) Mean Corpuscular Hemoglobin Concent 32.6 G/DL (32.0-36.0) Red Cell Distribution Width 17.4 % (11.6-14.8) H Platelet Count 262 K/UL (150-450) Mean Platelet Volume 6.1 FL (6.5-10.1) L Neutrophils (%) (Auto) % (45.0-75.0) Lymphocytes (%) (Auto) % (20.0-45.0) Monocytes (%) (Auto) % (1.0-10.0) Eosinophils (%) (Auto) % (0.0-3.0) Basophils (%) (Auto) % (0.0-2.0) Differential Total Cells Counted 100 Neutrophils % (Manual) 95 % (45-75) H Lymphocytes % (Manual) 2 % (20-45) L Monocytes % (Manual) 3 % (1-10) Eosinophils % (Manual) 0 % (0-3) Basophils % (Manual) 0 % (0-2) Band Neutrophils 0 % (0-8) Platelet Estimate Adequate Platelet Morphology Normal Hypochromasia 2+ Anisocytosis 1+ Sodium Level 138 MMOL/L (136-145) Potassium Level 4.7 MMOL/L (3.5-5.1) Chloride Level 103 MMOL/L (98-107) Carbon Dioxide Level 26 MMOL/L (21-32) Anion Gap 9 mmol/L (5-15) Blood Urea Nitrogen 56 mg/dL (7-18) H Creatinine 2.3 MG/DL (0.55-1.30) H Estimat Glomerular Filtration Rate 29.2 mL/min (>60) Glucose Level 68 MG/DL (74-106) #L Uric Acid 2.8 MG/DL (2.6-7.2) Calcium Level 8.5 MG/DL (8.5-10.1) Phosphorus Level 4.8 MG/DL (2.5-4.9) Magnesium Level 1.8 MG/DL (1.8-2.4) Total Bilirubin 0.5 MG/DL (0.2-1.0) Aspartate Amino Transf (AST/SGOT) 89 U/L (15-37) H Alanine Aminotransferase (ALT/SGPT) 68 U/L (12-78) Alkaline Phosphatase 121 U/L (46-116) H C-Reactive Protein, Quantitative 5.4 mg/dL (0.00-0.90) H Pro-B-Type Natriuretic Peptide 35423 pg/mL (0-125) H Total Protein 5.7 G/DL (6.4-8.2) L Albumin 2.4 G/DL (3.4-5.0) L Globulin 3.3 g/dL Albumin/Globulin Ratio 0.7 (1.0-2.7) L Random Vancomycin Level 8.2 ug/mL Arterial Blood pH 7.393 (7.350-7.450) 7.126 (7.350-7.450) 7.368 (7.350-7.450) Arterial Blood Partial Pressure CO2 38.8 mmHg (35.0-45.0) 82.4 mmHg (35.0-45.0) *H 43.1 mmHg (35.0-45.0) Arterial Blood Partial Pressure O2 104.4 mmHg (75.0-100.0) H 71.4 mmHg (75.0-100.0) L 245.8 mmHg (75.0-100.0) H Arterial Blood HCO3 23.1 mmol/L (22.0-26.0) 26.6 mmol/L (22.0-26.0) H 24.2 mmol/L (22.0-26.0) Arterial Blood Oxygen Saturation 97.0 % (95-100) 86.7 % (95-100) *L 99.0 % (95-100) Arterial Blood Base Excess -1.6 (-2-2) -3.5 (-2-2) L -1.1 (-2-2) Benny Test Positive Positive Positive Test 02/20/19 18:45 White Blood Count Pending Red Blood Count Pending Hemoglobin Pending Hematocrit Pending Mean Corpuscular Volume Pending Mean Corpuscular Hemoglobin Pending Mean Corpuscular Hemoglobin Concent Pending Red Cell Distribution Width Pending Platelet Count Pending Mean Platelet Volume Pending Neutrophils (%) (Auto) Pending Lymphocytes (%) (Auto) Pending Monocytes (%) (Auto) Pending Eosinophils (%) (Auto) Pending Basophils (%) (Auto) Pending Sodium Level Pending Potassium Level Pending Chloride Level Pending Carbon Dioxide Level Pending Blood Urea Nitrogen Pending Creatinine Pending Estimat Glomerular Filtration Rate Pending Glucose Level Pending Calcium Level Pending Total Bilirubin Pending Aspartate Amino Transf (AST/SGOT) Pending Alanine Aminotransferase (ALT/SGPT) Pending Alkaline Phosphatase Pending Total Protein Pending Albumin Pending Globulin Pending Microbiology Date/Time Source Procedure Growth Status 02/18/19 10:00 Sputum Induced Gram Stain - Final Resulted 02/18/19 10:00 Sputum Induced Sputum Culture - Preliminary NORMAL UPPER RESPIRATORY ADRIANA PRESENT Resulted Objective HEAD AND NECK: No JVD.Orally intubated with dry blood in nose and around mouth LUNGS: Coarse rhonchi. CARDIOVASCULAR: Regular S1 and S2 with no gallop or murmur. ABDOMEN: Soft. EXTREMITIES: No pitting edema. Murray Francois MD Feb 20, 2019 19:11
[2019-02-20 19:14] LABS: HEMATOCRIT 25.2 % (42.0-52.0); HEMOGLOBIN 8.1 G/DL (14.2-18.0); MEAN CORPUSCULAR VOLUME 86 FL (80-99); PLATELET COUNT 201 K/UL (150-450); RED BLOOD COUNT 2.94 M/UL (4.70-6.10); RED CELL DISTRIBUTION WIDTH 16.4 % (11.6-14.8); WHITE BLOOD COUNT 12.7 K/UL (4.8-10.8)
[2019-02-20 19:15] LABS: BASOPHILS % (AUTO) 0.3 % (0.0-2.0); LYMPHOCYTES % (AUTO) 3.9 % (20.0-45.0); MONOCYTES % (AUTO) 4.4 % (1.0-10.0); NEUTROPHILS % (AUTO) 91.4 % (45.0-75.0)
--- NOTE | 2019-02-20 19:30 | NUR ---
NURSE NOTES: Recvd.on a Vent.orally intubated awake restless trashing in bed on bila.soft wrist restraints prev.self-injury.Confused and disoriented.Re-oriented/Reassured.Suctioned Tk.Bloody sec fr.ETT.NS Lavaged.Noted some epistaxis.Pos. chg.Kept comfortable.See V/S.Scope SR.NGT Feeding on HOLD Temp.R/T Poss.Asp. and bleeding.F/Cath Patent diuresis well.See I/O.
[2019-02-20 19:31] LABS: ALANINE AMINOTRANSFERASE 71 U/L (12-78); ALBUMIN 2.7 G/DL (3.4-5.0); ALBUMIN/GLOBULIN RATIO 1.2 (1.0-2.7); ALKALINE PHOSPHATASE 106 U/L (46-116); ANION GAP 12 mmol/L (5-15); ASPARTATE AMINO TRANSFERASE 92 U/L (15-37); BILIRUBIN,TOTAL 0.6 MG/DL (0.2-1.0); CALCIUM 8.2 MG/DL (8.5-10.1); CARBON DIOXIDE 23 MMOL/L (21-32); CHLORIDE 103 MMOL/L (98-107); CREATININE 2.3 MG/DL (0.55-1.30); POTASSIUM 4.7 MMOL/L (3.5-5.1); SODIUM 138 MMOL/L (136-145)
--- NOTE | 2019-02-20 19:35 | NUR ---
HAND-OFF: Report given to TESSA Vega.
[2019-02-20 19:40] LABS: BLOOD UREA NITROGEN 59 mg/dL (7-18)
[2019-02-20] MEDS: Dyna-Hex 2% Top Sol 2oz TOPIC SCH (19:48)
[2019-02-20] MEDS: Maxitrol Opth Oint 3.5gm BOTH EYES SCH (20:38)
[2019-02-20] MEDS: Miralax 17gm pkt ORAL SCH (20:40)
[2019-02-20] MEDS: Enoxaparin 40mg Inj SUBQ SCH (20:41)
--- NOTE | 2019-02-20 21:04 | General Progress Note ---
Assessment/Plan Status: unchanged Assessment/Plan: 58 y Male admitted to the hospital due to fever, shortness of breath and chest pain. # Multilobar pneumonia in patient with HIV- worse # Acute Hypoxemic respiratory failure - extubated - on BiPAP # ARDS - improved - Broad sp atbx. Will continue Zosyn, Vancomycin and Azithromycin - Bactrim for PCP coverage - Droplet precaution -DCed - Oxygen support - ID consult appreciated. AFB, cocci, hystoplasma, legionella, ordered. . - Patient s/p emergent bronchoscopy given florid ARDS - Extubated 02/19 to BiPAP - close monitorins # NSTEMI - EKG with bifascicular block RBB and LAFB, no ST changes. - Trend troponin x3 - ECHO completed with no WMA and preserved EF. Dr. Francois consulted. Consideration for outpatient cath vs possibly myocarditis due to underlying viral infection. No evidence of Takotsubo per TTE. - NGT prn - Pain control with morphine # HIV - Continue HARRT - VL is undetectable per patient report. 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 Subjective Date patient seen: Feb 20, 2019 ROS Limited/Unobtainable: Yes Allergies: Coded Allergies: No Known Allergies (Unverified , 02/05/13) Subjective Pt desaturated on O2 facemask, put back on bipap with improved in saturations, course breath sounds, BP acceptable,more interactive Objective Last 24 Hour Vital Signs Date Time Temp Pulse Resp B/P (MAP) Pulse Ox O2 Delivery O2 Flow Rate FiO2 02/20/19 20:39 90 111/70 02/20/19 19:49 80 30 100 Mechanical Ventilator 60 02/20/19 19:11 84 32 100 Mechanical Ventilator 60 02/20/19 19:11 84 32 60 02/20/19 19:11 100 Mechanical Ventilator 60 02/20/19 19:00 81 26 132/69 (90) 99 7/2/19 18:00 86 19 156/71 (99) 99 02/20/19 17:50 60 02/20/19 17:49 156/71 02/20/19 17:48 156/71 02/20/19 17:06 85 33 60 02/20/19 17:00 82 25 167/68 (101) 100 02/20/19 16:38 80 02/20/19 16:00 79 02/20/19 16:00 Mechanical Ventilator Mechanical Ventilator 02/20/19 16:00 84 16 148/77 (100) 100 02/20/19 15:26 81 28 100 02/20/19 15:24 Mechanical Ventilator 100 02/20/19 15:24 Mechanical Ventilator 100 02/20/19 15:00 78 25 142/72 (95) 100 02/20/19 14:55 Mechanical Ventilator Mechanical Ventilator 02/20/19 14:55 100 02/20/19 14:00 79 27 150/74 (99) 77 02/20/19 13:39 164/79 02/20/19 13:11 87 33 91 Facial 60 02/20/19 13:00 98.3 87 28 135/70 (91) 93 02/20/19 12:01 106/63 02/20/19 12:00 88 02/20/19 12:00 91 28 135/70 (91) 93 02/20/19 12:00 106/63 02/20/19 12:00 Venturi Mask Venturi Mask 02/20/19 12:00 15.0 02/20/19 11:05 Venturi Mask 14.0 55 02/20/19 11:05 118 24 95 02/20/19 11:05 Venturi Mask 14.0 55 02/20/19 11:00 88 23 143/125 (131) 95 02/20/19 10:00 85 26 176/74 (108) 93 02/20/19 09:45 85 22 98 02/20/19 09:00 78 20 149/61 (90) 100 02/20/19 08:32 78 162/71 02/20/19 08:32 78 162/71 02/20/19 08:00 Bi-pap Bi-pap 02/20/19 08:00 60 02/20/19 08:00 77 02/20/19 08:00 97.9 79 18 162/71 (101) 100 02/20/19 07:04 82 27 100 Bi-Pap 60 02/20/19 07:04 Bi-Pap 60 02/20/19 07:02 84 30 100 Facial 60 02/20/19 07:00 83 29 105/82 (90) 100 02/20/19 06:57 83 30 100 Bi-Pap 60 02/20/19 06:00 86 25 133/69 (90) 100 02/20/19 05:16 140/84 02/20/19 05:15 140/84 02/20/19 05:14 140/84 02/20/19 05:02 88 28 97 Facial 60 02/20/19 05:00 85 28 149/81 (103) 100 02/20/19 04:30 85 20 154/68 (96) 100 02/20/19 04:00 60 02/20/19 04:00 99.5 90 25 146/68 (94) 98 02/20/19 04:00 86 02/20/19 04:00 Bi-pap Bi-pap 02/20/19 03:00 91 31 159/80 (106) 99 02/20/19 02:57 91 29 98 Bi-Pap 60 02/20/19 02:39 87 28 94 Bi-Pap 65 02/20/19 02:37 87 29 94 Facial 65 02/20/19 02:00 85 28 152/76 (101) 93 02/20/19 01:30 84 27 140/84 (102) 85 02/20/19 01:02 88 27 91 Facial 70 02/20/19 01:00 86 28 136/90 (105) 94 02/20/19 00:30 87 29 137/70 (92) 90 02/20/19 00:16 149/86 02/20/19 00:00 Bi-pap Bi-pap 02/20/19 00:00 70 02/20/19 00:00 98.6 89 29 149/86 (107) 90 02/20/19 00:00 83 02/19/19 23:30 88 27 139/90 (106) 87 02/19/19 23:00 87 26 143/78 (99) 93 02/19/19 22:57 84 29 95 Facial 70 02/19/19 22:00 89 27 129/110 (116) 90 02/19/19 21:39 138/96 02/19/19 21:38 138/96 Intake and Output 02/19/19 02/20/19 19:00 07:00 Intake Total 1075.166 ml 1069.0 ml Output Total 4450 ml 3125 ml Balance -3374.834 ml -2056.0 ml Free Water 200 ml 100 ml IV Total 875.166 ml 840.0 ml Tube Feeding 0 ml 129 ml Output Urine Total 4150 ml 3125 ml Stool Total 300 ml Laboratory Tests 02/20/19 05:20: White Blood Count 17.8#H, Red Blood Count 3.23L, Hemoglobin 9.1L, Hematocrit 28.1L, Mean Corpuscular Volume 87, Mean Corpuscular Hemoglobin 28.3, Mean Corpuscular Hemoglobin Concent 32.6, Red Cell Distribution Width 17.4H, Platelet Count 262, Mean Platelet Volume 6.1L, Neutrophils (%) (Auto) , Lymphocytes (%) (Auto) , Monocytes (%) (Auto) , Eosinophils (%) (Auto) , Basophils (%) (Auto) , Differential Total Cells Counted 100, Neutrophils % ( Manual) 95H, Lymphocytes % (Manual) 2L, Monocytes % (Manual) 3, Eosinophils % ( Manual) 0, Basophils % (Manual) 0, Band Neutrophils 0, Platelet Estimate Adequate, Platelet Morphology Normal, Hypochromasia 2+, Anisocytosis 1+, Sodium Level 138, Potassium Level 4.7, Chloride Level 103, Carbon Dioxide Level 26, Anion Gap 9, Blood Urea Nitrogen 56H, Creatinine 2.3H, Estimat Glomerular Filtration Rate 29.2, Glucose Level 68#L, Uric Acid 2.8, Calcium Level 8.5, Phosphorus Level 4.8, Magnesium Level 1.8, Total Bilirubin 0.5, Aspartate Amino Transf (AST/SGOT) 89H, Alanine Aminotransferase (ALT/SGPT) 68, Alkaline Phosphatase 121H, C-Reactive Protein, Quantitative 5.4H, Pro-B-Type Natriuretic Peptide 13514U, Total Protein 5.7L, Albumin 2.4L, Globulin 3.3, Albumin/ Globulin Ratio 0.7L, Random Vancomycin Level 8.2 02/20/19 07:47: Arterial Blood pH 7.393, Arterial Blood Partial Pressure CO2 38.8, Arterial Blood Partial Pressure O2 104.4H, Arterial Blood HCO3 23.1, Arterial Blood Oxygen Saturation 97.0, Arterial Blood Base Excess -1.6, Benny Test Positive 02/20/19 14:30: Arterial Blood pH 7.126*L, Arterial Blood Partial Pressure CO2 82.4*H, Arterial Blood Partial Pressure O2 71.4L, Arterial Blood HCO3 26.6H, Arterial Blood Oxygen Saturation 86.7*L, Arterial Blood Base Excess -3.5L, Benny Test Positive 02/20/19 16:30: Arterial Blood pH 7.368, Arterial Blood Partial Pressure CO2 43.1, Arterial Blood Partial Pressure O2 245.8H, Arterial Blood HCO3 24.2, Arterial Blood Oxygen Saturation 99.0, Arterial Blood Base Excess -1.1, Benny Test Positive 02/20/19 18:45: White Blood Count 12.7H, Red Blood Count 2.94L, Hemoglobin 8.1L, Hematocrit 25.2L, Mean Corpuscular Volume 86, Mean Corpuscular Hemoglobin 27.6, Mean Corpuscular Hemoglobin Concent 32.3, Red Cell Distribution Width 16.4H, Platelet Count 201, Mean Platelet Volume 5.5L, Neutrophils (%) (Auto) 91.4H, Lymphocytes (%) (Auto) 3.9L, Monocytes (%) (Auto) 4.4, Eosinophils (%) (Auto) 0.0, Basophils (%) (Auto) 0.3, Sodium Level 138, Potassium Level 4.7, Chloride Level 103, Carbon Dioxide Level 23, Anion Gap 12, Blood Urea Nitrogen 59H, Creatinine 2.3H, Estimat Glomerular Filtration Rate 29.2, Glucose Level 121H, Calcium Level 8.2L, Total Bilirubin 0.6, Aspartate Amino Transf (AST/SGOT) 92H, Alanine Aminotransferase (ALT/SGPT) 71, Alkaline Phosphatase 106, Total Protein 5.0L, Albumin 2.7L, Globulin 2.3, Albumin/Globulin Ratio 1.2 Height (Feet): 6 Height (Inches): 0.00 Weight (Pounds): 260 Objective General Appearance: extubated, no agitation EENT: extubated on bipap Neck: non-tender, normal alignment Cardiovascular: normal peripheral pulses, normal rate Respiratory/Chest: chest wall non-tender, lungs clear Abdomen: normal bowel sounds, non tender Extremities: normal range of motion, non-tender Edema: trace edema 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
--- NOTE | 2019-02-20 21:31 | NUR ---
NURSE NOTES: Remain restless,agitated.Medicated,Pos.to comfort.Suctioned.Due medical director of hospice.
--- NOTE | 2019-02-20 21:40 | Hematology/Onc Progress Note ---
Assessment/Plan Assessment/Plan ASSESSMENT AND RECOMMENDATIONS # Anemia of chronic disease due to underlying chronic medical issues, multifactorial --> Anemia workup has been reviewed. Ferritin 182 --> No evidence of hemolysis is noted, peripheral smear has been reviewed. --> Hgb goal >7. Transfuse prn. --> Epogen or iron at this time is not particularly indicated --> Medications have been reviewed --> Stool OB negative --> bone marrow biopsy is not indicated given the other more likely causes --> Blood tx: 1 unit on 02/10/19, --> Hgb trend: 7.6-->8.2-->9.4-->8.4-->8.2 -->8.9-->10.3->7.9-->8.1 # Thrombocytopenia - potential causes multifactorial, likely related to HIV status --> Hep panel pending and HIV confirmed positive --> US abd to evaluate for cirrhosis and hsm ordered --> Peripheral smear ordered to evaluate for blasts /schistocytes --> abx and other meds have been reviewed --> ok for ppx if plt >50k w/ either heparin or lovenox --> Transfuse if Plt < 20k and fever, or if Plt < 10k without fever --> Plt trend: 153-->257-->224-->205-->253-->310-->201 --> WILLIAM screen negative # Multilobar pneumonia in patient with HIV. Recs per ID. --> Broad sp atbx started. Continue Zosyn, Vancomycin and Azithromycin --> Droplet precaution # Hypoxemic respiratory failure. Pulm is following, appreciate recs. --> Bipap as needed, transition to O2 via NC when able --> Due to pneumonia, on abx # Chest pain. 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 --> Trend troponin x3 --> NGT prn # HIV. --> Continue HARRT --> VL is undetectable per patient report. # HTN --> Resume home medication # DVT and GI ppx The time the note is entered does not reflect the time the patient was examined. I greatly appreciate the consultation. Subjective Allergies: Coded Allergies: No Known Allergies (Unverified , 02/05/13) Subjective 02/11: Hgb yesterday was 7.6, s/p 1 unit prbc. Current hgb at 8.2. Pt attempted to pull out tubes per nursing team, soft restraints applied. 02/13: Pt in ICU and intubated. Pt currently sedated. Current hgb 9.4. 02/14: Pt remains in icu, sedated. Hgb stable. 02/15: Remains in icu, lethargic. No acute events. Hgb stable. 02/16: Remains in icu. CXR today shows worsening CHF/pulmonary edema. Pt wake and sedation decrease for weaning. 02/18: Remains in icu. Pt on vent. CXR today shows pulmonary edema, persistent small left pleural effusion. 02/19: Remains in the icu, now extubated, seen by pulm, labs reviewed 02/20: Remains in ICU, Pt intubated, CXR today shows Congestive heart failure with interval worsening Objective Objective Current Medications Medications (Trade) Dose Ordered Sig/Marquis Route PRN Reason Start Time Stop Time Status Last Admin Dose Admin Acetaminophen (Tylenol) 650 mg Q4H PRN ORAL Mild Pain (Pain Scale 1-3) 02/07/19 11:15 03/08/19 17:29 02/07/19 23:01 Acetaminophen/ Butalbital/ Caffeine (Fioricet) 1 tab Q8H PRN ORAL For Headache 02/08/19 17:15 03/10/19 17:14 Albuterol/ Ipratropium (Albuterol/ Ipratropium) 3 ml Q4HRT HHN 02/20/19 03:00 02/25/19 02:59 02/20/19 19:11 Amlodipine Besylate (Norvasc) 10 mg DAILY NG 02/15/19 09:00 03/14/19 15:59 02/20/19 08:32 Artificial Tears (Lacri-Lube) 1 applic AC+HS BOTH EYES 02/18/19 06:30 03/20/19 06:29 02/20/19 20:38 Aspirin (Ecotrin) 81 mg DAILY ORAL 02/08/19 09:00 03/09/19 08:59 02/20/19 08:33 Atorvastatin Calcium (Lipitor) 10 mg QHS ORAL 02/17/19 21:00 03/10/19 20:59 02/20/19 20:38 Bisacodyl (Dulcolax) 5 mg DAILYPRN PRN ORAL Constipation 02/08/19 17:15 03/10/19 17:14 02/18/19 20:13 Chlorhexidine Gluconate (Jessy-Hex 2%) 1 applic DAILY@2000 TOPIC 02/13/19 20:00 03/15/19 19:59 02/20/19 19:48 Clonidine HCl (Catapres Tab) 0.1 mg EVERY 6 HOURS NG 02/20/19 12:00 03/19/19 13:59 02/20/19 17:49 Dextrose (Dextrose 50%) 25 ml Q30M PRN IV Hypoglycemia 02/20/19 06:45 03/22/19 06:44 Dextrose (Dextrose 50%) 50 ml Q30M PRN IV Hypoglycemia 02/20/19 06:45 03/22/19 06:44 02/20/19 08:49 Docusate Sodium (Colace) 100 mg TID GT 02/12/19 18:00 03/12/19 08:59 02/20/19 17:48 Enoxaparin Sodium (Lovenox) 40 mg Q24H SUBQ 02/07/19 21:00 03/08/19 20:59 02/19/19 20:40 Fluconazole/ Sodium Chloride 100 ml @ 100 mls/hr Q24H IV 02/20/19 18:00 02/27/19 17:59 02/20/19 18:03 Guaifenesin (Mucinex ER) 600 mg TWICE A DAY ORAL 02/07/19 18:00 03/09/19 08:59 02/20/19 17:48 Hydralazine HCl (Apresoline) 10 mg Q4H PRN IV bp over 165 syst 02/17/19 10:15 03/19/19 10:14 02/19/19 14:45 Hydralazine HCl (Apresoline) 100 mg Q8HR NG 02/19/19 22:00 03/21/19 21:59 02/20/19 13:39 Insulin Aspart (NovoLOG) EVERY 4 HOURS SUBQ 02/15/19 21:00 03/17/19 20:59 02/20/19 17:50 Insulin Detemir (Levemir) 10 units BID SUBQ 02/20/19 09:00 03/22/19 08:59 02/20/19 17:49 Isosorbide Dinitrate (Isordil) 20 mg Q6HR NG 02/15/19 12:00 03/15/19 12:59 02/20/19 17:48 Lansoprazole (Prevacid) 30 mg BID NG 02/12/19 18:00 03/14/19 17:59 02/20/19 17:48 Lorazepam (Ativan 2mg/ml 1ml) 2 mg Q2H PRN IV agitation/restlessness 02/19/19 22:00 02/26/19 21:44 02/20/19 21:04 Lorazepam (Ativan) 1 mg Q4H PRN ORAL For Anxiety 02/19/19 15:15 02/26/19 15:14 02/19/19 15:21 Methylprednisolone Sodium Succinate (Solu-MEDROL) 10 mg EVERY 12 HOURS IVP 02/19/19 21:00 03/12/19 20:59 02/20/19 20:38 Metolazone (Zaroxolyn) 10 mg DAILY NG 02/19/19 10:00 03/21/19 09:59 02/20/19 08:33 Metoprolol Tartrate (Lopressor) 100 mg Q12HR ORAL 02/07/19 21:00 03/08/19 20:59 02/20/19 20:39 Midazolam HCl (Versed 2mg/2ml vial) 1 mg Q2H PRN IVP Agitation 02/13/19 08:45 03/15/19 08:44 02/14/19 05:49 Neomycin/ Polymyxin/ Dexamethasone (Maxitrol Opth Oint) 1 applic BEDTIME BOTH EYES 02/18/19 21:00 03/20/19 20:59 02/20/19 20:38 Nitroglycerin (Ntg) 0.4 mg Q5M PRN SL Prn Chest Pain 02/07/19 11:00 03/08/19 17:29 02/08/19 07:42 Ondansetron HCl (Zofran) 4 mg Q6H PRN IVP Nausea & Vomiting 02/07/19 11:15 03/08/19 11:14 02/09/19 00:58 Patient Own Medication (Patient's Own Med) 1 ea BID ORAL 02/07/19 18:00 03/09/19 17:59 02/20/19 17:46 Patient Own Medication (Patient's Own Med) 1 ea Q48H ORAL 02/18/19 09:00 03/20/19 08:59 02/20/19 08:33 Patient Own Medication (Patient's Own Med) 2 ea DAILY ORAL 02/08/19 09:00 03/10/19 08:59 02/20/19 08:39 Piperacillin Sod/ Tazobactam Sod 3.375 gm/Sodium Chloride 110 ml @ 27.5 mls/hr EVERY 8 HOURS IVPB 02/20/19 14:00 02/25/19 13:59 02/20/19 13:39 Polyethylene Glycol (Miralax) 17 gm BEDTIME ORAL 02/08/19 21:00 03/10/19 20:59 02/19/19 20:39 Sennosides (Senokot) 8.6 mg DAILY ORAL 02/13/19 12:00 03/15/19 11:59 02/20/19 08:39 Trimethoprim/ Sulfamethoxazole 25 ml/Dextrose 575 ml @ 383.333 mls/hr [id number] BACTRIM IV 02/20/19 12:00 02/27/19 11:59 02/20/19 13:39 Vancomycin HCl (Vanco rx to dose) 1 ea DAILY PRN MISC . 02/10/19 19:45 03/12/19 19:44 Vancomycin HCl/ Dextrose 275 ml @ 183.333 mls/hr Q18H IVPB 02/21/19 03:00 02/26/19 02:59 Last 24 Hour Vital Signs Date Time Temp Pulse Resp B/P (MAP) Pulse Ox O2 Delivery O2 Flow Rate FiO2 02/20/19 20:39 90 111/70 02/20/19 20:00 Mechanical Ventilator Mechanical Ventilator 02/20/19 20:00 87 02/20/19 20:00 97.8 87 30 135/68 (90) 99 02/20/19 19:49 80 30 100 Mechanical Ventilator 60 02/20/19 19:11 84 32 100 Mechanical Ventilator 60 02/20/19 19:11 84 32 60 02/20/19 19:11 100 Mechanical Ventilator 60 02/20/19 19:00 81 26 132/69 (90) 99 02/20/19 18:00 86 19 156/71 (99) 99 02/20/19 17:50 60 02/20/19 17:49 156/71 02/20/19 17:48 156/71 02/20/19 17:06 85 33 60 02/20/19 17:00 82 25 167/68 (101) 100 02/20/19 16:38 80 02/20/19 16:00 79 02/20/19 16:00 Mechanical Ventilator Mechanical Ventilator 02/20/19 16:00 84 16 148/77 (100) 100 02/20/19 15:26 81 28 100 02/20/19 15:24 Mechanical Ventilator 100 02/20/19 15:24 Mechanical Ventilator 100 02/20/19 15:00 78 25 142/72 (95) 100 02/20/19 14:55 Mechanical Ventilator Mechanical Ventilator 02/20/19 14:55 100 02/20/19 14:00 79 27 150/74 (99) 77 02/20/19 13:39 164/79 02/20/19 13:11 87 33 91 Facial 60 02/20/19 13:00 98.3 87 28 135/70 (91) 93 02/20/19 12:01 106/63 02/20/19 12:00 88 02/20/19 12:00 91 28 135/70 (91) 93 02/20/19 12:00 106/63 02/20/19 12:00 Venturi Mask Venturi Mask 02/20/19 12:00 15.0 02/20/19 11:05 Venturi Mask 14.0 55 02/20/19 11:05 118 24 95 02/20/19 11:05 Venturi Mask 14.0 55 02/20/19 11:00 88 23 143/125 (131) 95 02/20/19 10:00 85 26 176/74 (108) 93 02/20/19 09:45 85 22 98 02/20/19 09:00 78 20 149/61 (90) 100 02/20/19 08:32 78 162/71 02/20/19 08:32 78 162/71 02/20/19 08:00 Bi-pap Bi-pap 02/20/19 08:00 60 02/20/19 08:00 77 02/20/19 08:00 97.9 79 18 162/71 (101) 100 02/20/19 07:04 82 27 100 Bi-Pap 60 02/20/19 07:04 Bi-Pap 60 02/20/19 07:02 84 30 100 Facial 60 02/20/19 07:00 83 29 105/82 (90) 100 02/20/19 06:57 83 30 100 Bi-Pap 60 02/20/19 06:00 86 25 133/69 (90) 100 02/20/19 05:16 140/84 02/20/19 05:15 140/84 02/20/19 05:14 140/84 02/20/19 05:02 88 28 97 Facial 60 02/20/19 05:00 85 28 149/81 (103) 100 02/20/19 04:30 85 20 154/68 (96) 100 02/20/19 04:00 60 02/20/19 04:00 99.5 90 25 146/68 (94) 98 02/20/19 04:00 86 02/20/19 04:00 Bi-pap Bi-pap 02/20/19 03:00 91 31 159/80 (106) 99 02/20/19 02:57 91 29 98 Bi-Pap 60 02/20/19 02:39 87 28 94 Bi-Pap 65 02/20/19 02:37 87 29 94 Facial 65 02/20/19 02:00 85 28 152/76 (101) 93 02/20/19 01:30 84 27 140/84 (102) 85 02/20/19 01:02 88 27 91 Facial 70 02/20/19 01:00 86 28 136/90 (105) 94 02/20/19 00:30 87 29 137/70 (92) 90 02/20/19 00:16 149/86 02/20/19 00:00 Bi-pap Bi-pap 02/20/19 00:00 70 02/20/19 00:00 98.6 89 29 149/86 (107) 90 02/20/19 00:00 83 02/19/19 23:30 88 27 139/90 (106) 87 02/19/19 23:00 87 26 143/78 (99) 93 02/19/19 22:57 84 29 95 Facial 70 02/19/19 22:00 89 27 129/110 (116) 90 02/19/19 21:39 138/96 02/19/19 21:38 138/96 02/19/19 21:00 95 23 148/92 (110) 98 02/19/19 20:53 101 26 97 Facial 75 02/19/19 20:39 103 138/96 02/19/19 20:00 Bi-pap Bi-pap 02/19/19 20:00 75 02/19/19 20:00 99.0 103 28 159/73 (101) 88 02/19/19 20:00 87 02/19/19 19:20 103 22 88 Cool Aerosol 10.0 50 02/19/19 19:13 86 Cool Aerosol 10.0 50 02/19/19 19:13 109 26 87 Cool Aerosol 50 02/19/19 19:00 104 30 138/96 (110) 86 02/19/19 18:30 104 30 164/88 (113) 89 02/19/19 18:00 101 25 166/78 (107) 93 02/19/19 17:33 159/88 02/19/19 17:30 103 26 179/65 (103) 92 02/19/19 17:00 104 27 159/80 (106) 91 02/19/19 16:30 104 27 150/111 (124) 91 02/19/19 16:00 105 02/19/19 16:00 Venturi Mask Venturi Mask 02/19/19 16:00 15.0 50 02/19/19 16:00 98.1 105 26 148/65 (92) 91 02/19/19 15:30 107 27 167/147 (154) 84 02/19/19 15:00 100 27 159/88 (111) 84 02/19/19 14:58 102 16 96 Cool Aerosol 10.0 50 02/19/19 14:48 102 16 95 Cool Aerosol 50 02/19/19 14:45 176/76 02/19/19 14:30 103 26 179/89 (119) 99 02/19/19 14:00 105 26 176/76 (109) 99 02/19/19 13:30 105 30 178/98 (124) 100 02/19/19 13:17 143/71 02/19/19 13:09 T-piece 10.0 50 02/19/19 13:07 95 Cool Aerosol 10.0 50 02/19/19 13:05 15.0 50 02/19/19 13:00 104 23 149/85 (106) 98 02/19/19 12:52 143/71 02/19/19 12:52 143/71 02/19/19 12:30 102 21 189/104 (132) 97 02/19/19 12:00 85 30 100 Mechanical Ventilator 40 02/19/19 12:00 103 02/19/19 12:00 30 Mechanical Ventilator 40 02/19/19 12:00 21 Mechanical Ventilator 40 02/19/19 12:00 Mechanical Ventilator Mechanical Ventilator 02/19/19 12:00 97.1 77 30 161/78 (105) 100 02/19/19 11:41 83 30 100 Mechanical Ventilator 40 02/19/19 11:06 83 30 40 02/19/19 11:00 Endotracheal Tube 40 02/19/19 11:00 30 Mechanical Ventilator 40 02/19/19 11:00 77 30 145/72 (96) 100 02/19/19 10:30 78 30 165/75 (105) 100 02/19/19 10:00 30 Mechanical Ventilator 40 02/19/19 10:00 30 Mechanical Ventilator 40 02/19/19 10:00 87 30 143/71 (95) 100 02/19/19 09:30 104 30 160/74 (102) 97 02/19/19 09:11 108 186/111 02/19/19 09:11 104 186/111 02/19/19 09:03 40 02/19/19 09:00 115 30 183/96 (125) 97 02/19/19 09:00 30 Mechanical Ventilator 40 02/19/19 09:00 35 Mechanical Ventilator 40 02/19/19 08:45 88 31 40 02/19/19 08:30 78 30 186/111 (136) 97 02/19/19 08:00 40 02/19/19 08:00 18 Mechanical Ventilator 40 02/19/19 08:00 18 Mechanical Ventilator 40 02/19/19 08:00 84 02/19/19 08:00 93 30 187/84 (118) 99 02/19/19 08:00 Mechanical Ventilator 02/19/19 07:03 74 30 99 Mechanical Ventilator 40 02/19/19 07:00 16 Mechanical Ventilator 40 02/19/19 07:00 16 Mechanical Ventilator 40 02/19/19 07:00 96.8 81 30 159/67 (97) 99 02/19/19 06:53 68 30 96 Mechanical Ventilator 40 02/19/19 06:40 68 30 40 02/19/19 06:30 69 30 134/52 (79) 97 02/19/19 06:00 72 30 133/51 (78) 95 02/19/19 06:00 30 Mechanical Ventilator 40 02/19/19 06:00 30 Mechanical Ventilator 40 02/19/19 05:30 79 30 143/61 (88) 99 02/19/19 05:18 79 30 40 40 02/19/19 05:01 137/109 02/19/19 05:01 137/109 02/19/19 05:01 137/109 02/19/19 05:00 30 Mechanical Ventilator 40 02/19/19 05:00 30 Mechanical Ventilator 40 02/19/19 05:00 77 30 142/62 (88) 100 02/19/19 04:30 88 30 137/109 (118) 97 02/19/19 04:00 40 02/19/19 04:00 Mechanical Ventilator 02/19/19 04:00 75 02/19/19 04:00 99.2 85 30 157/90 (112) 94 02/19/19 04:00 30 Mechanical Ventilator 40 02/19/19 04:00 30 Mechanical Ventilator 40 02/19/19 03:30 69 30 129/51 (77) 98 02/19/19 03:29 69 30 100 Mechanical Ventilator 40 02/19/19 03:20 69 30 96 Mechanical Ventilator 40 02/19/19 03:19 69 30 40 40 02/19/19 03:00 30 Mechanical Ventilator 40 02/19/19 03:00 30 Mechanical Ventilator 40 02/19/19 03:00 70 30 133/54 (80) 98 02/19/19 02:30 75 30 142/62 (88) 99 02/19/19 02:00 30 Endotracheal Tube 40 02/19/19 02:00 30 40 02/19/19 02:00 82 30 148/75 (99) 100 02/19/19 01:30 67 30 128/52 (77) 95 02/19/19 01:00 67 30 125/50 (75) 95 02/19/19 01:00 30 40 02/19/19 01:00 30 40 02/19/19 00:55 67 30 40 40 02/19/19 00:30 69 30 137/60 (85) 96 02/19/19 00:00 69 02/19/19 00:00 Mechanical Ventilator 02/19/19 00:00 40 02/19/19 00:00 99.5 76 30 148/61 (90) 99 02/19/19 00:00 30 Mechanical Ventilator 40 02/19/19 00:00 30 Mechanical Ventilator 40 02/18/19 23:30 71 30 139/63 (88) 96 02/18/19 23:22 30 40 02/18/19 23:21 131/57 02/18/19 23:21 131/57 02/18/19 23:20 72 30 100 Mechanical Ventilator 40 02/18/19 23:11 67 30 100 Mechanical Ventilator 40 02/18/19 23:10 67 30 40 40 02/18/19 23:00 69 30 131/57 (81) 98 02/18/19 23:00 30 Mechanical Ventilator 40 02/18/19 23:00 30 Mechanical Ventilator 40 02/18/19 22:30 71 30 134/66 (88) 97 02/18/19 22:00 30 Mechanical Ventilator 40 02/18/19 22:00 30 Mechanical Ventilator 40 02/18/19 22:00 69 30 143/66 (91) 98 Intake and Output 02/19/19 02/20/19 19:00 07:00 Intake Total 1075.166 ml 1069.0 ml Output Total 4450 ml 3125 ml Balance -3374.834 ml -2056.0 ml Free Water 200 ml 100 ml IV Total 875.166 ml 840.0 ml Tube Feeding 0 ml 129 ml Output Urine Total 4150 ml 3125 ml Stool Total 300 ml Labs Test 02/18/19 05:30 02/18/19 08:30 02/19/19 05:00 02/19/19 14:36 White Blood Count 8.1 K/UL (4.8-10.8) 5.7 K/UL (4.8-10.8) Red Blood Count 3.68 M/UL (4.70-6.10) 2.84 M/UL (4.70-6.10) Hemoglobin 10.3 G/DL (14.2-18.0) 7.9 G/DL (14.2-18.0) Hematocrit 31.8 % (42.0-52.0) 24.3 % (42.0-52.0) Mean Corpuscular Volume 87 FL (80-99) 86 FL (80-99) Mean Corpuscular Hemoglobin 28.1 PG (27.0-31.0) 28.0 PG (27.0-31.0) Mean Corpuscular Hemoglobin Concent 32.4 G/DL (32.0-36.0) 32.6 G/DL (32.0-36.0) Red Cell Distribution Width 17.4 % (11.6-14.8) 17.2 % (11.6-14.8) Platelet Count 310 K/UL (150-450) 202 K/UL (150-450) Mean Platelet Volume 6.4 FL (6.5-10.1) 5.9 FL (6.5-10.1) Neutrophils (%) (Auto) 83.5 % (45.0-75.0) % (45.0-75.0) Lymphocytes (%) (Auto) 9.2 % (20.0-45.0) % (20.0-45.0) Monocytes (%) (Auto) 6.7 % (1.0-10.0) % (1.0-10.0) Eosinophils (%) (Auto) 0.2 % (0.0-3.0) % (0.0-3.0) Basophils (%) (Auto) 0.3 % (0.0-2.0) % (0.0-2.0) Sodium Level 142 MMOL/L (136-145) 138 MMOL/L (136-145) Potassium Level 4.3 MMOL/L (3.5-5.1) 4.5 MMOL/L (3.5-5.1) Chloride Level 107 MMOL/L (98-107) 107 MMOL/L (98-107) Carbon Dioxide Level 25 MMOL/L (21-32) 24 MMOL/L (21-32) Anion Gap 10 mmol/L (5-15) 7 mmol/L (5-15) Blood Urea Nitrogen 62 mg/dL (7-18) 59 mg/dL (7-18) Creatinine 2.4 MG/DL (0.55-1.30) 2.3 MG/DL (0.55-1.30) Estimat Glomerular Filtration Rate 27.8 mL/min (>60) 29.2 mL/min (>60) Glucose Level 216 MG/DL (74-106) 194 MG/DL (74-106) Uric Acid 3.0 MG/DL (2.6-7.2) 2.8 MG/DL (2.6-7.2) Calcium Level 8.5 MG/DL (8.5-10.1) 7.6 MG/DL (8.5-10.1) Phosphorus Level 4.2 MG/DL (2.5-4.9) 3.9 MG/DL (2.5-4.9) Magnesium Level 2.2 MG/DL (1.8-2.4) 1.9 MG/DL (1.8-2.4) Total Bilirubin 0.4 MG/DL (0.2-1.0) 0.3 MG/DL (0.2-1.0) Aspartate Amino Transf (AST/SGOT) 47 U/L (15-37) 43 U/L (15-37) Alanine Aminotransferase (ALT/SGPT) 58 U/L (12-78) 49 U/L (12-78) Alkaline Phosphatase 161 U/L (46-116) 115 U/L (46-116) Ammonia 17 umol/L (11-32) Troponin I 0.836 ng/mL (0.000-0.056) C-Reactive Protein, Quantitative 1.4 mg/dL (0.00-0.90) 1.1 mg/dL (0.00-0.90) Pro-B-Type Natriuretic Peptide 4140 pg/mL (0-125) 4189 pg/mL (0-125) Total Protein 6.1 G/DL (6.4-8.2) 4.7 G/DL (6.4-8.2) Albumin 2.2 G/DL (3.4-5.0) 1.6 G/DL (3.4-5.0) Globulin 3.9 g/dL 3.1 g/dL Albumin/Globulin Ratio 0.6 (1.0-2.7) 0.5 (1.0-2.7) Random Vancomycin Level 9.0 ug/mL Arterial Blood pH 7.494 (7.350-7.450) 7.353 (7.350-7.450) Arterial Blood Partial Pressure CO2 29.3 mmHg (35.0-45.0) 38.0 mmHg (35.0-45.0) Arterial Blood Partial Pressure O2 82.7 mmHg (75.0-100.0) 67.6 mmHg (75.0-100.0) Arterial Blood HCO3 22.0 mmol/L (22.0-26.0) 20.7 mmol/L (22.0-26.0) Arterial Blood Oxygen Saturation 95.1 % (95-100) 91.2 % (95-100) Arterial Blood Base Excess -0.7 (-2-2) -4.4 (-2-2) Benny Test Positive Positive Differential Total Cells Counted 100 Neutrophils % (Manual) 89 % (45-75) Lymphocytes % (Manual) 9 % (20-45) Monocytes % (Manual) 2 % (1-10) Eosinophils % (Manual) 0 % (0-3) Basophils % (Manual) 0 % (0-2) Band Neutrophils 0 % (0-8) Platelet Estimate Adequate Platelet Morphology Normal Hypochromasia 3+ Anisocytosis 1+ Spherocytes 1+ Test 02/20/19 05:20 02/20/19 07:47 02/20/19 14:30 02/20/19 16:30 White Blood Count 17.8 K/UL (4.8-10.8) Red Blood Count 3.23 M/UL (4.70-6.10) Hemoglobin 9.1 G/DL (14.2-18.0) Hematocrit 28.1 % (42.0-52.0) Mean Corpuscular Volume 87 FL (80-99) Mean Corpuscular Hemoglobin 28.3 PG (27.0-31.0) Mean Corpuscular Hemoglobin Concent 32.6 G/DL (32.0-36.0) Red Cell Distribution Width 17.4 % (11.6-14.8) Platelet Count 262 K/UL (150-450) Mean Platelet Volume 6.1 FL (6.5-10.1) Neutrophils (%) (Auto) % (45.0-75.0) Lymphocytes (%) (Auto) % (20.0-45.0) Monocytes (%) (Auto) % (1.0-10.0) Eosinophils (%) (Auto) % (0.0-3.0) Basophils (%) (Auto) % (0.0-2.0) Differential Total Cells Counted 100 Neutrophils % (Manual) 95 % (45-75) Lymphocytes % (Manual) 2 % (20-45) Monocytes % (Manual) 3 % (1-10) Eosinophils % (Manual) 0 % (0-3) Basophils % (Manual) 0 % (0-2) Band Neutrophils 0 % (0-8) Platelet Estimate Adequate Platelet Morphology Normal Hypochromasia 2+ Anisocytosis 1+ Sodium Level 138 MMOL/L (136-145) Potassium Level 4.7 MMOL/L (3.5-5.1) Chloride Level 103 MMOL/L (98-107) Carbon Dioxide Level 26 MMOL/L (21-32) Anion Gap 9 mmol/L (5-15) Blood Urea Nitrogen 56 mg/dL (7-18) Creatinine 2.3 MG/DL (0.55-1.30) Estimat Glomerular Filtration Rate 29.2 mL/min (>60) Glucose Level 68 MG/DL (74-106) Uric Acid 2.8 MG/DL (2.6-7.2) Calcium Level 8.5 MG/DL (8.5-10.1) Phosphorus Level 4.8 MG/DL (2.5-4.9) Magnesium Level 1.8 MG/DL (1.8-2.4) Total Bilirubin 0.5 MG/DL (0.2-1.0) Aspartate Amino Transf (AST/SGOT) 89 U/L (15-37) Alanine Aminotransferase (ALT/SGPT) 68 U/L (12-78) Alkaline Phosphatase 121 U/L (46-116) C-Reactive Protein, Quantitative 5.4 mg/dL (0.00-0.90) Pro-B-Type Natriuretic Peptide 22301 pg/mL (0-125) Total Protein 5.7 G/DL (6.4-8.2) Albumin 2.4 G/DL (3.4-5.0) Globulin 3.3 g/dL Albumin/Globulin Ratio 0.7 (1.0-2.7) Random Vancomycin Level 8.2 ug/mL Arterial Blood pH 7.393 (7.350-7.450) 7.126 (7.350-7.450) 7.368 (7.350-7.450) Arterial Blood Partial Pressure CO2 38.8 mmHg (35.0-45.0) 82.4 mmHg (35.0-45.0) 43.1 mmHg (35.0-45.0) Arterial Blood Partial Pressure O2 104.4 mmHg (75.0-100.0) 71.4 mmHg (75.0-100.0) 245.8 mmHg (75.0-100.0) Arterial Blood HCO3 23.1 mmol/L (22.0-26.0) 26.6 mmol/L (22.0-26.0) 24.2 mmol/L (22.0-26.0) Arterial Blood Oxygen Saturation 97.0 % (95-100) 86.7 % (95-100) 99.0 % (95-100) Arterial Blood Base Excess -1.6 (-2-2) -3.5 (-2-2) -1.1 (-2-2) Benny Test Positive Positive Positive Test 02/20/19 18:45 White Blood Count 12.7 K/UL (4.8-10.8) Red Blood Count 2.94 M/UL (4.70-6.10) Hemoglobin 8.1 G/DL (14.2-18.0) Hematocrit 25.2 % (42.0-52.0) Mean Corpuscular Volume 86 FL (80-99) Mean Corpuscular Hemoglobin 27.6 PG (27.0-31.0) Mean Corpuscular Hemoglobin Concent 32.3 G/DL (32.0-36.0) Red Cell Distribution Width 16.4 % (11.6-14.8) Platelet Count 201 K/UL (150-450) Mean Platelet Volume 5.5 FL (6.5-10.1) Neutrophils (%) (Auto) 91.4 % (45.0-75.0) Lymphocytes (%) (Auto) 3.9 % (20.0-45.0) Monocytes (%) (Auto) 4.4 % (1.0-10.0) Eosinophils (%) (Auto) 0.0 % (0.0-3.0) Basophils (%) (Auto) 0.3 % (0.0-2.0) Sodium Level 138 MMOL/L (136-145) Potassium Level 4.7 MMOL/L (3.5-5.1) Chloride Level 103 MMOL/L (98-107) Carbon Dioxide Level 23 MMOL/L (21-32) Anion Gap 12 mmol/L (5-15) Blood Urea Nitrogen 59 mg/dL (7-18) Creatinine 2.3 MG/DL (0.55-1.30) Estimat Glomerular Filtration Rate 29.2 mL/min (>60) Glucose Level 121 MG/DL (74-106) Calcium Level 8.2 MG/DL (8.5-10.1) Total Bilirubin 0.6 MG/DL (0.2-1.0) Aspartate Amino Transf (AST/SGOT) 92 U/L (15-37) Alanine Aminotransferase (ALT/SGPT) 71 U/L (12-78) Alkaline Phosphatase 106 U/L (46-116) Total Protein 5.0 G/DL (6.4-8.2) Albumin 2.7 G/DL (3.4-5.0) Globulin 2.3 g/dL Albumin/Globulin Ratio 1.2 (1.0-2.7) Height (Feet): 6 Height (Inches): 0.00 Weight (Pounds): 260 Objective PHYSICAL EXAMINATION: GENERAL: NAD VITAL SIGNS: Have been reviewed. HEAD AND NECK: Shows no JVD. NG+ TRACH+ LUNGS: Coarse rhonchi. CARDIOVASCULAR: Shows regular S1 and S2 with no gallop or murmur. ABDOMEN: Soft. EXTREMITIES: No pitting edema. Chan Hernandez MD Feb 20, 2019 21:40
[2019-02-21] VITALS (33 sets, daily range): BP systolic 131–156; BP diastolic 56–77
--- NOTE | 2019-02-21 00:15 | NUR ---
NURSE NOTES: Emesied coffee ground looking gastric sec.NGT connected to suction emptied 400cc dark color gastric sec.Made clean and dry.Feeding remain on Hold temporarily.See V/S.Scope Rhythm same.
[2019-02-21] MEDS: TRIMETHOPRIM IV SCH ×4 (00:18→23:47)
[2019-02-21] MEDS: SULFAMETHOXAZOLE IV SCH ×4 (00:18→23:47)
[2019-02-21] MEDS: D5W IV SCH ×4 (00:18→23:47)
[2019-02-21] MEDS: LORazepam Inj 2mg/ml 1ml IV PRN ×3 (00:44→18:57)
--- NOTE | 2019-02-21 01:00 | NUR ---
NURSE NOTES: Restless/agitated.Medicated.Repositioned to comfort.FSBS-151 covered.Remain on close monitoring.
[2019-02-21] MEDS: NovoLOG Insulin Flexpen SUBQ SCH ×6 (01:56→22:19)
--- NOTE | 2019-02-21 02:21 | NUR ---
NURSE NOTES: Pos. chg.Suctioned.Cont.to diuresis well.Cont.Plan of care.
[2019-02-21] MEDS: Vancomycin 1.25gm Premix IVPB SCH ×2 (03:06→21:40)
[2019-02-21] MEDS: Albuterol/Ipratropium 3ml neb HHN SCH ×6 (03:12→22:48)
--- NOTE | 2019-02-21 04:10 | NUR ---
NURSE NOTES: Message left for MD Meredith at this time in regards to patient continues to bleed from nose and mouth. Abdomen was very distended and NGT output on 400cc dark black colored output. No labs this morning. awaiting call back.
--- NOTE | 2019-02-21 04:31 | NUR ---
NURSE NOTES: Cont.to bleed from mouth and nose.NGT Feeding remain on Hold. called message left.Irma Carbajal chjose.Kept clean and dry.Neuro status same.VSS.Scope Rhythm same.Raul.Vent.settings.Sat.98-100%.Suctioned.
[2019-02-21] MEDS: HydrALAZINE 50mg tab NG SCH ×3 (05:57→21:38)
[2019-02-21] MEDS: Zosyn 3.375gm q8h **Extended infusion IVPB SCH ×6 (05:58→22:02)
[2019-02-21] MEDS: Lacri-Lube Opth Oint 3.5gm BOTH EYES SCH ×4 (06:02→22:02)
--- NOTE | 2019-02-21 07:00 | NUR ---
RESPIRATORY NOTE: Patient received mechanically ventilated on PB 840 with current ordered vent settings. Patient is orally intubated, Vent alarms are functional and audible. No distress whatsoever noted at this time. There is an ambu bag available at the bedside and the vent is connected to a red outlet. Will continue to monitor.
--- NOTE | 2019-02-21 07:19 | NUR ---
HAND-OFF: Report given to TESSA GUADARRAMA.
--- NOTE | 2019-02-21 08:05 | NUR ---
NURSE NOTES: patient given Ativan 2mg/ml for remaining restless and heart rate of 110-125. FIo2 is 60%, Ac 24, TV: 550 with Peep of 5, Morning labs sent to laboratory for analysis per dr. Meredith. will continue to monitor.
--- NOTE | 2019-02-21 08:32 | NUR ---
NURSE NOTES: Dr. Dr. uLtz updated on patient status, present at the bedside and conducted assessment, noted that patient has blood present on nose and et-tube, no verbal orders given at this time.
--- NOTE | 2019-02-21 08:43 | Neurology Progress Note ---
Interim History Interim History ROS Limited/Unobtainable: Yes Complaints: AMS Interim History pt was re intubated day prior, has some bleeding from nostril getting ativan pRN and sedated now Objective Physical Exam Last Vital Signs Date Time Temp Pulse Resp B/P (MAP) Pulse Ox O2 Delivery O2 Flow Rate FiO2 02/21/19 08:00 60 02/21/19 08:00 99.4 106 29 150/58 (88) 99 02/21/19 07:09 Mechanical Ventilator 02/20/19 12:00 15.0 Laboratory Tests Test 02/20/19 14:30 02/20/19 16:30 02/20/19 18:45 02/21/19 07:30 Arterial Blood pH 7.126 (7.350-7.450) 7.368 (7.350-7.450) Arterial Blood Partial Pressure CO2 82.4 mmHg (35.0-45.0) *H 43.1 mmHg (35.0-45.0) Arterial Blood Partial Pressure O2 71.4 mmHg (75.0-100.0) L 245.8 mmHg (75.0-100.0) H Arterial Blood HCO3 26.6 mmol/L (22.0-26.0) H 24.2 mmol/L (22.0-26.0) Arterial Blood Oxygen Saturation 86.7 % (95-100) *L 99.0 % (95-100) Arterial Blood Base Excess -3.5 (-2-2) L -1.1 (-2-2) Benny Test Positive Positive White Blood Count 12.7 K/UL (4.8-10.8) H Pending Red Blood Count 2.94 M/UL (4.70-6.10) L Pending Hemoglobin 8.1 G/DL (14.2-18.0) L Pending Hematocrit 25.2 % (42.0-52.0) L Pending Mean Corpuscular Volume 86 FL (80-99) Pending Mean Corpuscular Hemoglobin 27.6 PG (27.0-31.0) Pending Mean Corpuscular Hemoglobin Concent 32.3 G/DL (32.0-36.0) Pending Red Cell Distribution Width 16.4 % (11.6-14.8) H Pending Platelet Count 201 K/UL (150-450) Pending Mean Platelet Volume 5.5 FL (6.5-10.1) L Pending Neutrophils (%) (Auto) 91.4 % (45.0-75.0) H Pending Lymphocytes (%) (Auto) 3.9 % (20.0-45.0) L Pending Monocytes (%) (Auto) 4.4 % (1.0-10.0) Pending Eosinophils (%) (Auto) 0.0 % (0.0-3.0) Pending Basophils (%) (Auto) 0.3 % (0.0-2.0) Pending Sodium Level 138 MMOL/L (136-145) Pending Potassium Level 4.7 MMOL/L (3.5-5.1) Pending Chloride Level 103 MMOL/L (98-107) Pending Carbon Dioxide Level 23 MMOL/L (21-32) Pending Anion Gap 12 mmol/L (5-15) Blood Urea Nitrogen 59 mg/dL (7-18) H Pending Creatinine 2.3 MG/DL (0.55-1.30) H Pending Estimat Glomerular Filtration Rate 29.2 mL/min (>60) Pending Glucose Level 121 MG/DL (74-106) H Pending Calcium Level 8.2 MG/DL (8.5-10.1) L Pending Total Bilirubin 0.6 MG/DL (0.2-1.0) Pending Aspartate Amino Transf (AST/SGOT) 92 U/L (15-37) H Pending Alanine Aminotransferase (ALT/SGPT) 71 U/L (12-78) Pending Alkaline Phosphatase 106 U/L (46-116) Pending Total Protein 5.0 G/DL (6.4-8.2) L Pending Albumin 2.7 G/DL (3.4-5.0) L Pending Globulin 2.3 g/dL Pending Albumin/Globulin Ratio 1.2 (1.0-2.7) Prothrombin Time Pending Prothromb Time International Ratio Pending Fibrinogen Pending D-Dimer Pending Phosphorus Level Pending Magnesium Level Pending C-Reactive Protein, Quantitative Pending Pro-B-Type Natriuretic Peptide Pending General: well developed, well nourished, other Head: normocophalic, other Neck: no rigidity EENT: benign, other Neurologic Exam Mental Status: other Speech: other Language: other Cranial Nerve II: other Cranial Nerves III, IV, : other Cranial Nerve V: other Cranial Nerve VII: other Cranial Nerve VIII: other Cranial Nerve IX: other Cranial Nerve X: other Cranial Nerve XI: other Cranial Nerve XII: other Motor System: other Sensory: other Coordination: other Deep Tendon Reflexes: 0 bicep (L), 0 bicep (R), 0 tricep (L), 0 tricep (R), 0 brachioradialis (L), 0 brachioradialis (R), 0 knee (L), 0 knee (R), 0 ankle (L) , 0 ankle (R) Reflexes: mute plantar (L), mute plantar (R) Stance: other Gait: other Objective he is intubated and sedated. pupils are symmetric and reactive corneals present he withdraws to noxious stimuli without localizing. 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 (33) acute small R pontomedullary and left cerebellar peduncle strokes. 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
--- NOTE | 2019-02-21 08:45 | NUR ---
NURSE NOTES: Dr. Young rounded and updated at the bedside, updated on patient disorientation and sedated from Ativan being given, after doctor assessed patient no orders was given, will continue to monitor.
[2019-02-21 08:48] LABS: HEMATOCRIT 24.1 % (42.0-52.0); HEMOGLOBIN 7.8 G/DL (14.2-18.0); MEAN CORPUSCULAR VOLUME 87 FL (80-99); PLATELET COUNT 188 K/UL (150-450); RED BLOOD COUNT 2.78 M/UL (4.70-6.10); RED CELL DISTRIBUTION WIDTH 17.7 % (11.6-14.8); WHITE BLOOD COUNT 10.7 K/UL (4.8-10.8)
[2019-02-21] MEDS: Aspirin EC 81mg tab ORAL SCH (09:00)
[2019-02-21] MEDS: Docusate 100mg/10ml Liq GT SCH ×3 (09:00→18:33)
[2019-02-21 09:01] LABS: INR 1.1 (0.9-1.1)
[2019-02-21 09:08] LABS: ALANINE AMINOTRANSFERASE 83 U/L (12-78); ALBUMIN 2.5 G/DL (3.4-5.0); ALBUMIN/GLOBULIN RATIO 0.8 (1.0-2.7); ALKALINE PHOSPHATASE 103 U/L (46-116); ANION GAP 11 mmol/L (5-15); ASPARTATE AMINO TRANSFERASE 96 U/L (15-37); BILIRUBIN,TOTAL 0.7 MG/DL (0.2-1.0); BLOOD UREA NITROGEN 54 mg/dL (7-18); CALCIUM 8.1 MG/DL (8.5-10.1); CARBON DIOXIDE 24 MMOL/L (21-32); CHLORIDE 100 MMOL/L (98-107); CREATININE 2.4 MG/DL (0.55-1.30); POTASSIUM 4.3 MMOL/L (3.5-5.1); SODIUM 135 MMOL/L (136-145)
[2019-02-21 09:10] LABS: PHOSPHORUS 3.6 MG/DL (2.5-4.9)
[2019-02-21] MEDS ORDERED: Tubing IV Secondary IV ONE (09:40)
[2019-02-21] MEDS ORDERED: NS 275ml ONE (09:40)
--- NOTE | 2019-02-21 09:41 | Nephrology Progress Note ---
Assessment/Plan Problem List: (1) ISH (acute kidney injury) Assessment: Cr lowering (2) HIV (human immunodeficiency virus infection) (3) NSTEMI (non-ST elevated myocardial infarction) Assessment: troponin decreasing (4) Hypoxia (5) Anemia (6) Diabetes Assessment Acute Renal failure- Cr leveling- Urine out put is good Acidosis improved Acute respiratory failure- Require intubation and Mechanical Ventilation- Anemia- Elevated troponin / ID HTN DM HIV Antibody + Plan Zaroxylin 10 daily trial of Albumin and Lasix stop IV fluid Kayexelate as needed BP med adjustment ? recheck 2D echo?? IV D5W Off Bicitra UA and urine studies Avoid Nephrotoxics as possible Monitor renal parameters keep BP and BS in check Per orders No HD at this time Kidney RADHA noted adjust BP meds add Isordil Subjective ROS Limited/Unobtainable: Yes Objective Objective Last 24 Hour Vital Signs Date Time Temp Pulse Resp B/P (MAP) Pulse Ox O2 Delivery O2 Flow Rate FiO2 02/21/19 09:22 107 30 60 02/21/19 08:00 60 02/21/19 08:00 108 02/21/19 08:00 99.4 106 29 150/58 (88) 99 02/21/19 07:09 100 30 100 Mechanical Ventilator 60 02/21/19 07:05 100 Mechanical Ventilator 60 02/21/19 07:04 97 33 60 02/21/19 07:00 97 23 147/62 (90) 100 02/21/19 07:00 95 30 100 Mechanical Ventilator 60 02/21/19 06:00 102 23 153/65 (94) 100 02/21/19 05:57 154/65 02/21/19 05:57 154/65 02/21/19 05:57 154/65 02/21/19 05:30 105 35 60 02/21/19 05:00 102 31 154/65 (94) 100 02/21/19 04:00 60 02/21/19 04:00 97.6 100 25 145/74 (97) 98 02/21/19 04:00 100 02/21/19 04:00 Mechanical Ventilator Mechanical Ventilator 02/21/19 03:22 89 32 99 Mechanical Ventilator 60 02/21/19 03:13 98 36 60 02/21/19 03:12 97 34 98 Mechanical Ventilator 60 02/21/19 03:00 96 26 152/65 (94) 99 02/21/19 02:00 96 25 147/69 (95) 100 02/21/19 01:14 98 33 60 02/21/19 01:00 92 29 145/57 (86) 99 02/21/19 00:18 137/75 02/21/19 00:17 137/75 02/21/19 00:00 97.2 91 26 137/75 (95) 99 02/21/19 00:00 91 02/21/19 00:00 60 02/21/19 00:00 Mechanical Ventilator Mechanical Ventilator 02/20/19 23:06 82 32 99 Mechanical Ventilator 60 02/20/19 23:00 91 30 142/59 (86) 100 02/20/19 22:56 84 34 99 Mechanical Ventilator 60 02/20/19 22:55 92 35 60 02/20/19 22:42 145/68 02/20/19 22:00 89 20 145/68 (93) 99 02/20/19 21:10 89 36 60 02/20/19 21:00 91 24 146/65 (92) 98 02/20/19 20:39 90 111/70 02/20/19 20:00 Mechanical Ventilator Mechanical Ventilator 02/20/19 20:00 87 02/20/19 20:00 97.8 87 30 135/68 (90) 99 02/20/19 20:00 60 02/20/19 19:49 80 30 100 Mechanical Ventilator 60 02/20/19 19:11 84 32 100 Mechanical Ventilator 60 02/20/19 19:11 84 32 60 02/20/19 19:11 100 Mechanical Ventilator 60 02/20/19 19:00 81 26 132/69 (90) 99 02/20/19 18:00 86 19 156/71 (99) 99 02/20/19 17:50 60 02/20/19 17:49 156/71 02/20/19 17:48 156/71 02/20/19 17:06 85 33 60 02/20/19 17:00 82 25 167/68 (101) 100 02/20/19 16:38 80 02/20/19 16:00 79 02/20/19 16:00 Mechanical Ventilator Mechanical Ventilator 02/20/19 16:00 84 16 148/77 (100) 100 02/20/19 15:26 81 28 100 02/20/19 15:24 Mechanical Ventilator 100 02/20/19 15:24 Mechanical Ventilator 100 02/20/19 15:00 78 25 142/72 (95) 100 02/20/19 14:55 Mechanical Ventilator Mechanical Ventilator 02/20/19 14:55 100 02/20/19 14:00 79 27 150/74 (99) 77 02/20/19 13:39 164/79 02/20/19 13:11 87 33 91 Facial 60 02/20/19 13:00 98.3 87 28 135/70 (91) 93 02/20/19 12:01 106/63 02/20/19 12:00 88 02/20/19 12:00 91 28 135/70 (91) 93 02/20/19 12:00 106/63 02/20/19 12:00 Venturi Mask Venturi Mask 02/20/19 12:00 15.0 02/20/19 11:05 Venturi Mask 14.0 55 02/20/19 11:05 118 24 95 02/20/19 11:05 Venturi Mask 14.0 55 02/20/19 11:00 88 23 143/125 (131) 95 02/20/19 10:00 85 26 176/74 (108) 93 02/20/19 09:45 85 22 98 Intake and Output 02/20/19 02/21/19 19:00 07:00 Intake Total 1251.000 ml 1060.0 ml Output Total 2270 ml 2120 ml Balance -1019.000 ml -1060.0 ml IV Total 1115.000 ml 1060.0 ml Tube Feeding 86 ml 0 ml Other 50 ml Output Urine Total 2250 ml 1520 ml Stool Total 20 ml 200 ml Gastric Drainage Total 400 ml Laboratory Tests 02/20/19 14:30: Arterial Blood pH 7.126*L, Arterial Blood Partial Pressure CO2 82.4*H, Arterial Blood Partial Pressure O2 71.4L, Arterial Blood HCO3 26.6H, Arterial Blood Oxygen Saturation 86.7*L, Arterial Blood Base Excess -3.5L, Benny Test Positive 02/20/19 16:30: Arterial Blood pH 7.368, Arterial Blood Partial Pressure CO2 43.1, Arterial Blood Partial Pressure O2 245.8H, Arterial Blood HCO3 24.2, Arterial Blood Oxygen Saturation 99.0, Arterial Blood Base Excess -1.1, Benny Test Positive 02/20/19 18:45: White Blood Count 12.7H, Red Blood Count 2.94L, Hemoglobin 8.1L, Hematocrit 25.2L, Mean Corpuscular Volume 86, Mean Corpuscular Hemoglobin 27.6, Mean Corpuscular Hemoglobin Concent 32.3, Red Cell Distribution Width 16.4H, Platelet Count 201, Mean Platelet Volume 5.5L, Neutrophils (%) (Auto) 91.4H, Lymphocytes (%) (Auto) 3.9L, Monocytes (%) (Auto) 4.4, Eosinophils (%) (Auto) 0.0, Basophils (%) (Auto) 0.3, Sodium Level 138, Potassium Level 4.7, Chloride Level 103, Carbon Dioxide Level 23, Anion Gap 12, Blood Urea Nitrogen 59H, Creatinine 2.3H, Estimat Glomerular Filtration Rate 29.2, Glucose Level 121H, Calcium Level 8.2L, Total Bilirubin 0.6, Aspartate Amino Transf (AST/SGOT) 92H, Alanine Aminotransferase (ALT/SGPT) 71, Alkaline Phosphatase 106, Total Protein 5.0L, Albumin 2.7L, Globulin 2.3, Albumin/Globulin Ratio 1.2 02/21/19 07:30: White Blood Count 10.7, Red Blood Count 2.78L, Hemoglobin 7.8L, Hematocrit 24.1L , Mean Corpuscular Volume 87, Mean Corpuscular Hemoglobin 28.2, Mean Corpuscular Hemoglobin Concent 32.5, Red Cell Distribution Width 17.7H, Platelet Count 188, Mean Platelet Volume 5.8L, Neutrophils (%) (Auto) , Lymphocytes (%) (Auto) , Monocytes (%) (Auto) , Eosinophils (%) (Auto) , Basophils (%) (Auto) , Sodium Level 135L, Potassium Level 4.3, Chloride Level 100, Carbon Dioxide Level 24, Anion Gap 11, Blood Urea Nitrogen 54H, Creatinine 2.4H, Estimat Glomerular Filtration Rate 27.8, Glucose Level 152H, Calcium Level 8.1L, Total Bilirubin 0.7, Aspartate Amino Transf (AST/SGOT) 96H, Alanine Aminotransferase (ALT/SGPT) 83H, Alkaline Phosphatase 103, Total Protein 5.5L, Albumin 2.5L, Globulin 3.0, Albumin/Globulin Ratio 0.8L, Neutrophils % (Manual) [Pending], Lymphocytes % (Manual) [Pending], Platelet Estimate [Pending], Platelet Morphology [Pending], Prothrombin Time 12.0H, Prothromb Time International Ratio 1.1, Fibrinogen [Pending], D-Dimer [Pending], Phosphorus Level 3.6, Magnesium Level 1.8, C-Reactive Protein, Quantitative 12.6H, Pro-B- Type Natriuretic Peptide [id number] Height (Feet): 6 Height (Inches): 0.00 Weight (Pounds): 272 Cardiovascular: tachycardia Respiratory/Chest: decreased breath sounds Abdomen: distended Mike Mcdonald MD Feb 21, 2019 09:41
[2019-02-21] MEDS: RALTEGRAVIR 400 MG ORAL SCH ×2 (10:25→18:34)
[2019-02-21] MEDS: ETRAVIRINE 200 MG ORAL SCH (10:25)
[2019-02-21] MEDS: Sennosides 8.6mg tab ORAL SCH (10:26)
[2019-02-21] MEDS: guaiFENesin ER 600mg tab ORAL SCH ×2 (10:26→18:33)
[2019-02-21] MEDS: Solu-MEDROL 40mg Inj IVP SCH ×2 (10:27→21:39)
--- NOTE | 2019-02-21 10:34 | General Progress Note ---
Assessment/Plan Status: unchanged Assessment/Plan: 1. History of HIV. 2. Hypertension. 3. Vertigo. 4. History of headaches. 5. History of diabetes. 6. Respiratory failure 7. Dysphagia 8. ileus NGTF on hold reintubated ppi fu H&H prn blood transfusion Subjective ROS Limited/Unobtainable: No Allergies: Coded Allergies: No Known Allergies (Unverified , 02/05/13) Objective Last 24 Hour Vital Signs Date Time Temp Pulse Resp B/P (MAP) Pulse Ox O2 Delivery O2 Flow Rate FiO2 02/21/19 10:28 109 145/65 02/21/19 10:27 108 145/65 02/21/19 10:20 109 30 100 Mechanical Ventilator 60 02/21/19 10:10 109 30 100 Mechanical Ventilator 60 02/21/19 10:00 108 27 145/65 (91) 100 02/21/19 09:22 107 30 60 02/21/19 09:00 105 26 141/64 (89) 100 02/21/19 08:00 60 02/21/19 08:00 108 02/21/19 08:00 99.4 106 29 150/58 (88) 99 02/21/19 07:09 100 30 100 Mechanical Ventilator 60 02/21/19 07:05 100 Mechanical Ventilator 60 02/21/19 07:04 97 33 60 02/21/19 07:00 97 23 147/62 (90) 100 02/21/19 07:00 95 30 100 Mechanical Ventilator 60 02/21/19 06:00 102 23 153/65 (94) 100 02/21/19 05:57 154/65 02/21/19 05:57 154/65 02/21/19 05:57 154/65 02/21/19 05:30 105 35 60 02/21/19 05:00 102 31 154/65 (94) 100 02/21/19 04:00 60 02/21/19 04:00 97.6 100 25 145/74 (97) 98 02/21/19 04:00 100 02/21/19 04:00 Mechanical Ventilator Mechanical Ventilator 02/21/19 03:22 89 32 99 Mechanical Ventilator 60 02/21/19 03:13 98 36 60 02/21/19 03:12 97 34 98 Mechanical Ventilator 60 02/21/19 03:00 96 26 152/65 (94) 99 02/21/19 02:00 96 25 147/69 (95) 100 02/21/19 01:14 98 33 60 02/21/19 01:00 92 29 145/57 (86) 99 02/21/19 00:18 137/75 02/21/19 00:17 137/75 02/21/19 00:00 97.2 91 26 137/75 (95) 99 02/21/19 00:00 91 02/21/19 00:00 60 02/21/19 00:00 Mechanical Ventilator Mechanical Ventilator 02/20/19 23:06 82 32 99 Mechanical Ventilator 60 02/20/19 23:00 91 30 142/59 (86) 100 02/20/19 22:56 84 34 99 Mechanical Ventilator 60 02/20/19 22:55 92 35 60 02/20/19 22:42 145/68 02/20/19 22:00 89 20 145/68 (93) 99 02/20/19 21:10 89 36 60 02/20/19 21:00 91 24 146/65 (92) 98 02/20/19 20:39 90 111/70 02/20/19 20:00 Mechanical Ventilator Mechanical Ventilator 02/20/19 20:00 87 02/20/19 20:00 97.8 87 30 135/68 (90) 99 02/20/19 20:00 60 02/20/19 19:49 80 30 100 Mechanical Ventilator 60 02/20/19 19:11 84 32 100 Mechanical Ventilator 60 02/20/19 19:11 84 32 60 02/20/19 19:11 100 Mechanical Ventilator 60 02/20/19 19:00 81 26 132/69 (90) 99 02/20/19 18:00 86 19 156/71 (99) 99 02/20/19 17:50 60 02/20/19 17:49 156/71 02/20/19 17:48 156/71 02/20/19 17:06 85 33 60 02/20/19 17:00 82 25 167/68 (101) 100 02/20/19 16:38 80 02/20/19 16:00 79 02/20/19 16:00 Mechanical Ventilator Mechanical Ventilator 02/20/19 16:00 84 16 148/77 (100) 100 02/20/19 15:26 81 28 100 02/20/19 15:24 Mechanical Ventilator 100 02/20/19 15:24 Mechanical Ventilator 100 02/20/19 15:00 78 25 142/72 (95) 100 02/20/19 14:55 Mechanical Ventilator Mechanical Ventilator 02/20/19 14:55 100 02/20/19 14:00 79 27 150/74 (99) 77 02/20/19 13:39 164/79 02/20/19 13:11 87 33 91 Facial 60 02/20/19 13:00 98.3 87 28 135/70 (91) 93 02/20/19 12:01 106/63 02/20/19 12:00 88 02/20/19 12:00 91 28 135/70 (91) 93 02/20/19 12:00 106/63 02/20/19 12:00 Venturi Mask Venturi Mask 02/20/19 12:00 15.0 02/20/19 11:05 Venturi Mask 14.0 55 02/20/19 11:05 118 24 95 02/20/19 11:05 Venturi Mask 14.0 55 02/20/19 11:00 88 23 143/125 (131) 95 Intake and Output 02/20/19 02/21/19 19:00 07:00 Intake Total 1251.000 ml 1060.0 ml Output Total 2270 ml 2120 ml Balance -1019.000 ml -1060.0 ml IV Total 1115.000 ml 1060.0 ml Tube Feeding 86 ml 0 ml Other 50 ml Output Urine Total 2250 ml 1520 ml Stool Total 20 ml 200 ml Gastric Drainage Total 400 ml Laboratory Tests 02/20/19 14:30: Arterial Blood pH 7.126*L, Arterial Blood Partial Pressure CO2 82.4*H, Arterial Blood Partial Pressure O2 71.4L, Arterial Blood HCO3 26.6H, Arterial Blood Oxygen Saturation 86.7*L, Arterial Blood Base Excess -3.5L, Benny Test Positive 02/20/19 16:30: Arterial Blood pH 7.368, Arterial Blood Partial Pressure CO2 43.1, Arterial Blood Partial Pressure O2 245.8H, Arterial Blood HCO3 24.2, Arterial Blood Oxygen Saturation 99.0, Arterial Blood Base Excess -1.1, Benny Test Positive 02/20/19 18:45: White Blood Count 12.7H, Red Blood Count 2.94L, Hemoglobin 8.1L, Hematocrit 25.2L, Mean Corpuscular Volume 86, Mean Corpuscular Hemoglobin 27.6, Mean Corpuscular Hemoglobin Concent 32.3, Red Cell Distribution Width 16.4H, Platelet Count 201, Mean Platelet Volume 5.5L, Neutrophils (%) (Auto) 91.4H, Lymphocytes (%) (Auto) 3.9L, Monocytes (%) (Auto) 4.4, Eosinophils (%) (Auto) 0.0, Basophils (%) (Auto) 0.3, Sodium Level 138, Potassium Level 4.7, Chloride Level 103, Carbon Dioxide Level 23, Anion Gap 12, Blood Urea Nitrogen 59H, Creatinine 2.3H, Estimat Glomerular Filtration Rate 29.2, Glucose Level 121H, Calcium Level 8.2L, Total Bilirubin 0.6, Aspartate Amino Transf (AST/SGOT) 92H, Alanine Aminotransferase (ALT/SGPT) 71, Alkaline Phosphatase 106, Total Protein 5.0L, Albumin 2.7L, Globulin 2.3, Albumin/Globulin Ratio 1.2 02/21/19 07:30: White Blood Count 10.7, Red Blood Count 2.78L, Hemoglobin 7.8L, Hematocrit 24.1L , Mean Corpuscular Volume 87, Mean Corpuscular Hemoglobin 28.2, Mean Corpuscular Hemoglobin Concent 32.5, Red Cell Distribution Width 17.7H, Platelet Count 188, Mean Platelet Volume 5.8L, Neutrophils (%) (Auto) , Lymphocytes (%) (Auto) , Monocytes (%) (Auto) , Eosinophils (%) (Auto) , Basophils (%) (Auto) , Sodium Level 135L, Potassium Level 4.3, Chloride Level 100, Carbon Dioxide Level 24, Anion Gap 11, Blood Urea Nitrogen 54H, Creatinine 2.4H, Estimat Glomerular Filtration Rate 27.8, Glucose Level 152H, Calcium Level 8.1L, Total Bilirubin 0.7, Aspartate Amino Transf (AST/SGOT) 96H, Alanine Aminotransferase (ALT/SGPT) 83H, Alkaline Phosphatase 103, Total Protein 5.5L, Albumin 2.5L, Globulin 3.0, Albumin/Globulin Ratio 0.8L, Differential Total Cells Counted 100, Neutrophils % (Manual) 90H, Lymphocytes % (Manual) 8L, Monocytes % (Manual) 2, Eosinophils % (Manual) 0, Basophils % (Manual) 0, Band Neutrophils 0, Platelet Estimate Adequate, Platelet Morphology Normal, Red Blood Cell Morphology Normal, Prothrombin Time 12.0H, Prothromb Time International Ratio 1.1, Fibrinogen 472H, D-Dimer 0.58H, Phosphorus Level 3.6, Magnesium Level 1.8, C-Reactive Protein, Quantitative 12.6H, Pro-B-Type Natriuretic Peptide [id number] Height (Feet): 6 Height (Inches): 0.00 Weight (Pounds): 272 General Appearance: lethargic EENT: normal ENT inspection Neck: supple Cardiovascular: normal rate Respiratory/Chest: decreased breath sounds Abdomen: normal bowel sounds, non tender, soft Extremities: non-tender Kg Ricketts MD Feb 21, 2019 10:34
[2019-02-21] MEDS: Levemir Flexpen SUBQ SCH ×2 (10:39→18:39)
--- NOTE | 2019-02-21 11:23 | NUR ---
ST NOTES: SWALLOW EVAL RECEIVED BUT PATIENT NOW INTUBATED, PLEASE RECONSULT WHEN INDICATED.
--- NOTE | 2019-02-21 11:37 | Pulmonolgy Critical Care Note ---
Critical Care - Asmt/Plan Problems: (1) Endotracheally intubated (2) Acute hypoxemic respiratory failure (3) Pneumonia (4) NSTEMI (non-ST elevated myocardial infarction) (5) AIDS (6) HIV disease (7) Hypertension (8) MDD (major depressive disorder), recurrent episode, moderate (9) Anemia (10) CKD (chronic kidney disease) (11) History of stroke (12) Diabetes (13) Anxiety (14) Malignant hypertension Assessment/Plan: VDRF, extubated 02/19, re-intubated 02/20 Hemoptysis, hematemesis ARDS Acute respiratory failure B pulmonary infiltrates, ? multilobar CAP vs atypical infection vs other ? PJP AIDS (CD4 191) NSTEMI H/O prior CVA HTN HL DM with uncontrolled BS ISH on CKD Anemia PLAN: Continue ventilatory support/settings reviewed Keep PEEP 5, titrate down FiO2 to keep SaO2 > 90% RTC and PRN HHN's Continue Abx per ID (TMP/SMX, Zosyn, Vanco) + flucon per ID SM 10 IV BID and taper Monitor volumes and renal function, F/U renal recs, diurese as able, may need HD , keep cath in for now F/U cards recs: will need further ischemia eval/cath once stabilized DVT Px: LMWH Monitor for bleeding, F/U DIC labs F/U ENDO recs TF's as celestino FC, continue to discuss GOC D/W RN and RT @ bedside CCT 60 Critical Care - Objective Last 24 Hour Vital Signs Date Time Temp Pulse Resp B/P (MAP) Pulse Ox O2 Delivery O2 Flow Rate FiO2 02/21/19 11:00 110 38 60 02/21/19 11:00 104 24 139/68 (91) 99 02/21/19 10:28 109 145/65 02/21/19 10:27 108 145/65 02/21/19 10:20 109 30 100 Mechanical Ventilator 60 02/21/19 10:10 109 30 100 Mechanical Ventilator 60 02/21/19 10:00 108 27 145/65 (91) 100 02/21/19 09:22 107 30 60 02/21/19 09:00 105 26 141/64 (89) 100 02/21/19 08:00 60 02/21/19 08:00 Mechanical Ventilator 02/21/19 08:00 108 02/21/19 08:00 99.4 106 29 150/58 (88) 99 02/21/19 07:09 100 30 100 Mechanical Ventilator 60 02/21/19 07:05 100 Mechanical Ventilator 60 02/21/19 07:04 97 33 60 02/21/19 07:00 97 23 147/62 (90) 100 02/21/19 07:00 95 30 100 Mechanical Ventilator 60 02/21/19 06:00 102 23 153/65 (94) 100 02/21/19 05:57 154/65 02/21/19 05:57 154/65 02/21/19 05:57 154/65 02/21/19 05:30 105 35 60 02/21/19 05:00 102 31 154/65 (94) 100 02/21/19 04:00 60 02/21/19 04:00 97.6 100 25 145/74 (97) 98 02/21/19 04:00 100 02/21/19 04:00 Mechanical Ventilator Mechanical Ventilator 02/21/19 03:22 89 32 99 Mechanical Ventilator 60 02/21/19 03:13 98 36 60 02/21/19 03:12 97 34 98 Mechanical Ventilator 60 02/21/19 03:00 96 26 152/65 (94) 99 02/21/19 02:00 96 25 147/69 (95) 100 02/21/19 01:14 98 33 60 02/21/19 01:00 92 29 145/57 (86) 99 02/21/19 00:18 137/75 02/21/19 00:17 137/75 02/21/19 00:00 97.2 91 26 137/75 (95) 99 02/21/19 00:00 91 02/21/19 00:00 60 02/21/19 00:00 Mechanical Ventilator Mechanical Ventilator 02/20/19 23:06 82 32 99 Mechanical Ventilator 60 02/20/19 23:00 91 30 142/59 (86) 100 02/20/19 22:56 84 34 99 Mechanical Ventilator 60 02/20/19 22:55 92 35 60 02/20/19 22:42 145/68 02/20/19 22:00 89 20 145/68 (93) 99 02/20/19 21:10 89 36 60 02/20/19 21:00 91 24 146/65 (92) 98 02/20/19 20:39 90 111/70 02/20/19 20:00 Mechanical Ventilator Mechanical Ventilator 02/20/19 20:00 87 02/20/19 20:00 97.8 87 30 135/68 (90) 99 02/20/19 20:00 60 02/20/19 19:49 80 30 100 Mechanical Ventilator 60 02/20/19 19:11 84 32 100 Mechanical Ventilator 60 02/20/19 19:11 84 32 60 02/20/19 19:11 100 Mechanical Ventilator 60 02/20/19 19:00 81 26 132/69 (90) 99 02/20/19 18:00 86 19 156/71 (99) 99 02/20/19 17:50 60 02/20/19 17:49 156/71 02/20/19 17:48 156/71 02/20/19 17:06 85 33 60 02/20/19 17:00 82 25 167/68 (101) 100 02/20/19 16:38 80 02/20/19 16:00 79 02/20/19 16:00 Mechanical Ventilator Mechanical Ventilator 02/20/19 16:00 84 16 148/77 (100) 100 02/20/19 15:26 81 28 100 02/20/19 15:24 Mechanical Ventilator 100 02/20/19 15:24 Mechanical Ventilator 100 02/20/19 15:00 78 25 142/72 (95) 100 02/20/19 14:55 Mechanical Ventilator Mechanical Ventilator 02/20/19 14:55 100 02/20/19 14:00 79 27 150/74 (99) 77 02/20/19 13:39 164/79 02/20/19 13:11 87 33 91 Facial 60 02/20/19 13:00 98.3 87 28 135/70 (91) 93 02/20/19 12:01 106/63 02/20/19 12:00 88 02/20/19 12:00 91 28 135/70 (91) 93 02/20/19 12:00 106/63 02/20/19 12:00 Venturi Mask Venturi Mask 02/20/19 12:00 15.0 Status: obtunded - intubate Condition: critical HEENT: atraumatic, normocephalic Lungs: rales, rhonchi Heart: HR/BP stable Abdomen: soft, non-tender, active bowel sounds Extremities: edema - 2+, cyanosis - no, clubbing - no Micro: Microbiology Date/Time Source Procedure Growth Status 02/20/19 18:45 Indwelling Cath Urine Culture - Preliminary NO GROWTH Resulted Accucheck: 210 Blood Sugars: BS not controlled Critical Care - Subjective ROS Limited/Unobtainable: Yes ICU Day: 16 Intubation Day: re-in D1 Interval Events: Prog RF yesterday, acidodic, jimenez, de-sat --> re-intubated Now HD stable off pressors MS waxes and wanes + bleeding from ETT, NGT, scott colored urine Condition: critical IV Access: central - L fem HD cath, peripheral EKG Rhythm: Sinus Rhythm FI02: 60 Vent Support Breath Rate: 24 Vent Support Mode: AC Vent Tidal Volume: 550 Sputum Amount: Small PEEP: 5.0 PIP: 31 Secretions: small bloody Fluids: SLIV Tube Feeding Amount: 15 I&O: Intake and Output 02/20/19 02/21/19 19:00 07:00 Intake Total 1251.000 ml 1060.0 ml Output Total 2270 ml 2120 ml Balance -1019.000 ml -1060.0 ml IV Total 1115.000 ml 1060.0 ml Tube Feeding 86 ml 0 ml Other 50 ml Output Urine Total 2250 ml 1520 ml Stool Total 20 ml 200 ml Gastric Drainage Total 400 ml Subjective: CONRAD CXR: ETT 2 cm above christal, scattered b opacities ET-Tube: 7.5 ET Position: 24 Labs: Laboratory Tests Test 02/20/19 14:30 02/20/19 16:30 02/20/19 18:45 02/21/19 07:30 Arterial Blood pH 7.126 (7.350-7.450) 7.368 (7.350-7.450) Arterial Blood Partial Pressure CO2 82.4 mmHg (35.0-45.0) *H 43.1 mmHg (35.0-45.0) Arterial Blood Partial Pressure O2 71.4 mmHg (75.0-100.0) L 245.8 mmHg (75.0-100.0) H Arterial Blood HCO3 26.6 mmol/L (22.0-26.0) H 24.2 mmol/L (22.0-26.0) Arterial Blood Oxygen Saturation 86.7 % (95-100) *L 99.0 % (95-100) Arterial Blood Base Excess -3.5 (-2-2) L -1.1 (-2-2) Benny Test Positive Positive White Blood Count 12.7 K/UL (4.8-10.8) H 10.7 K/UL (4.8-10.8) Red Blood Count 2.94 M/UL (4.70-6.10) L 2.78 M/UL (4.70-6.10) L Hemoglobin 8.1 G/DL (14.2-18.0) L 7.8 G/DL (14.2-18.0) L Hematocrit 25.2 % (42.0-52.0) L 24.1 % (42.0-52.0) L Mean Corpuscular Volume 86 FL (80-99) 87 FL (80-99) Mean Corpuscular Hemoglobin 27.6 PG (27.0-31.0) 28.2 PG (27.0-31.0) Mean Corpuscular Hemoglobin Concent 32.3 G/DL (32.0-36.0) 32.5 G/DL (32.0-36.0) Red Cell Distribution Width 16.4 % (11.6-14.8) H 17.7 % (11.6-14.8) H Platelet Count 201 K/UL (150-450) 188 K/UL (150-450) Mean Platelet Volume 5.5 FL (6.5-10.1) L 5.8 FL (6.5-10.1) L Neutrophils (%) (Auto) 91.4 % (45.0-75.0) H % (45.0-75.0) Lymphocytes (%) (Auto) 3.9 % (20.0-45.0) L % (20.0-45.0) Monocytes (%) (Auto) 4.4 % (1.0-10.0) % (1.0-10.0) Eosinophils (%) (Auto) 0.0 % (0.0-3.0) % (0.0-3.0) Basophils (%) (Auto) 0.3 % (0.0-2.0) % (0.0-2.0) Sodium Level 138 MMOL/L (136-145) 135 MMOL/L (136-145) L Potassium Level 4.7 MMOL/L (3.5-5.1) 4.3 MMOL/L (3.5-5.1) Chloride Level 103 MMOL/L (98-107) 100 MMOL/L (98-107) Carbon Dioxide Level 23 MMOL/L (21-32) 24 MMOL/L (21-32) Anion Gap 12 mmol/L (5-15) 11 mmol/L (5-15) Blood Urea Nitrogen 59 mg/dL (7-18) H 54 mg/dL (7-18) H Creatinine 2.3 MG/DL (0.55-1.30) H 2.4 MG/DL (0.55-1.30) H Estimat Glomerular Filtration Rate 29.2 mL/min (>60) 27.8 mL/min (>60) Glucose Level 121 MG/DL (74-106) H 152 MG/DL (74-106) H Calcium Level 8.2 MG/DL (8.5-10.1) L 8.1 MG/DL (8.5-10.1) L Total Bilirubin 0.6 MG/DL (0.2-1.0) 0.7 MG/DL (0.2-1.0) Aspartate Amino Transf (AST/SGOT) 92 U/L (15-37) H 96 U/L (15-37) H Alanine Aminotransferase (ALT/SGPT) 71 U/L (12-78) 83 U/L (12-78) H Alkaline Phosphatase 106 U/L (46-116) 103 U/L (46-116) Total Protein 5.0 G/DL (6.4-8.2) L 5.5 G/DL (6.4-8.2) L Albumin 2.7 G/DL (3.4-5.0) L 2.5 G/DL (3.4-5.0) L Globulin 2.3 g/dL 3.0 g/dL Albumin/Globulin Ratio 1.2 (1.0-2.7) 0.8 (1.0-2.7) L Differential Total Cells Counted 100 Neutrophils % (Manual) 90 % (45-75) H Lymphocytes % (Manual) 8 % (20-45) L Monocytes % (Manual) 2 % (1-10) Eosinophils % (Manual) 0 % (0-3) Basophils % (Manual) 0 % (0-2) Band Neutrophils 0 % (0-8) Platelet Estimate Adequate Platelet Morphology Normal Red Blood Cell Morphology Normal Prothrombin Time 12.0 SEC (9.30-11.50) H Prothromb Time International Ratio 1.1 (0.9-1.1) Fibrinogen 472 mg/dL (200-400) H D-Dimer 0.58 mg/L FEU (0.00-0.49) H Phosphorus Level 3.6 MG/DL (2.5-4.9) Magnesium Level 1.8 MG/DL (1.8-2.4) C-Reactive Protein, Quantitative 12.6 mg/dL (0.00-0.90) H Pro-B-Type Natriuretic Peptide 09954 pg/mL (0-125) H Brett Meredith MD Feb 21, 2019 11:37
--- NOTE | 2019-02-21 11:41 | NUR ---
NURSE NOTES: Rounded with Dr. Meredith regarding patient status and labs results, ordered to have fentanyl drip started and titrate to rass of -2, no further orders given, ordered to monitor bleeding since hgb is 7.8, NG-tube noted to have dark black fluid upon aspiration, Et-tube has red specks while suctioning, and has dry and dark clots around the nares
--- NOTE | 2019-02-21 12:50 | NUR ---
NURSE NOTES: Fentanyl drip started at 10mcg/ at 1ml/hr with +1 on RASS restless squirming from side to side in bed. Fentanyl increase to 20mcg/hr at 2ml/hr. Rass score increase to 0. will continue to monitor.
--- NOTE | 2019-02-21 13:19 | Surgery Progress Note ---
Surgery Progress Note Subjective Procedure Performed left femoral temporary Hemodialysis catheter insertion Additional Comments re-intubated labs noted on vent support edema ansarca Objective Last 24 Hour Vital Signs Date Time Temp Pulse Resp B/P (MAP) Pulse Ox O2 Delivery O2 Flow Rate FiO2 02/21/19 13:02 94 33 60 02/21/19 13:00 94 33 138/72 (94) 99 02/21/19 12:44 35 Mechanical Ventilator 60 02/21/19 12:36 148/72 02/21/19 12:36 148/72 02/21/19 12:00 96 02/21/19 12:00 Mechanical Ventilator 02/21/19 12:00 99.9 97 34 148/72 (97) 99 02/21/19 12:00 60 02/21/19 11:00 110 38 60 02/21/19 11:00 104 24 139/68 (91) 99 02/21/19 10:28 109 145/65 02/21/19 10:27 108 145/65 02/21/19 10:20 109 30 100 Mechanical Ventilator 60 02/21/19 10:10 109 30 100 Mechanical Ventilator 60 02/21/19 10:00 108 27 145/65 (91) 100 02/21/19 09:22 107 30 60 02/21/19 09:00 105 26 141/64 (89) 100 02/21/19 08:00 60 02/21/19 08:00 Mechanical Ventilator 02/21/19 08:00 108 02/21/19 08:00 99.4 106 29 150/58 (88) 99 02/21/19 07:09 100 30 100 Mechanical Ventilator 60 02/21/19 07:05 100 Mechanical Ventilator 60 02/21/19 07:04 97 33 60 02/21/19 07:00 97 23 147/62 (90) 100 02/21/19 07:00 95 30 100 Mechanical Ventilator 60 02/21/19 06:00 102 23 153/65 (94) 100 02/21/19 05:57 154/65 02/21/19 05:57 154/65 02/21/19 05:57 154/65 02/21/19 05:30 105 35 60 02/21/19 05:00 102 31 154/65 (94) 100 02/21/19 04:00 60 02/21/19 04:00 97.6 100 25 145/74 (97) 98 02/21/19 04:00 100 02/21/19 04:00 Mechanical Ventilator Mechanical Ventilator 02/21/19 03:22 89 32 99 Mechanical Ventilator 60 02/21/19 03:13 98 36 60 02/21/19 03:12 97 34 98 Mechanical Ventilator 60 02/21/19 03:00 96 26 152/65 (94) 99 02/21/19 02:00 96 25 147/69 (95) 100 02/21/19 01:14 98 33 60 02/21/19 01:00 92 29 145/57 (86) 99 02/21/19 00:18 137/75 02/21/19 00:17 137/75 02/21/19 00:00 97.2 91 26 137/75 (95) 99 02/21/19 00:00 91 02/21/19 00:00 60 02/21/19 00:00 Mechanical Ventilator Mechanical Ventilator 02/20/19 23:06 82 32 99 Mechanical Ventilator 60 02/20/19 23:00 91 30 142/59 (86) 100 02/20/19 22:56 84 34 99 Mechanical Ventilator 60 02/20/19 22:55 92 35 60 02/20/19 22:42 145/68 02/20/19 22:00 89 20 145/68 (93) 99 02/20/19 21:10 89 36 60 02/20/19 21:00 91 24 146/65 (92) 98 02/20/19 20:39 90 111/70 02/20/19 20:00 Mechanical Ventilator Mechanical Ventilator 02/20/19 20:00 87 02/20/19 20:00 97.8 87 30 135/68 (90) 99 02/20/19 20:00 60 02/20/19 19:49 80 30 100 Mechanical Ventilator 60 02/20/19 19:11 84 32 100 Mechanical Ventilator 60 02/20/19 19:11 84 32 60 02/20/19 19:11 100 Mechanical Ventilator 60 02/20/19 19:00 81 26 132/69 (90) 99 02/20/19 18:00 86 19 156/71 (99) 99 02/20/19 17:50 60 02/20/19 17:49 156/71 02/20/19 17:48 156/71 02/20/19 17:06 85 33 60 02/20/19 17:00 82 25 167/68 (101) 100 02/20/19 16:38 80 02/20/19 16:00 79 02/20/19 16:00 Mechanical Ventilator Mechanical Ventilator 02/20/19 16:00 84 16 148/77 (100) 100 02/20/19 15:26 81 28 100 02/20/19 15:24 Mechanical Ventilator 100 02/20/19 15:24 Mechanical Ventilator 100 02/20/19 15:00 78 25 142/72 (95) 100 02/20/19 14:55 Mechanical Ventilator Mechanical Ventilator 02/20/19 14:55 100 02/20/19 14:00 79 27 150/74 (99) 77 02/20/19 13:39 164/79 I&O Intake and Output 02/20/19 02/21/19 19:00 07:00 Intake Total 1251.000 ml 1060.0 ml Output Total 2270 ml 2120 ml Balance -1019.000 ml -1060.0 ml IV Total 1115.000 ml 1060.0 ml Tube Feeding 86 ml 0 ml Other 50 ml Output Urine Total 2250 ml 1520 ml Stool Total 20 ml 200 ml Gastric Drainage Total 400 ml Dressing: saturated Cardiovascular: RSR Respiratory: decreased breath sounds, other Abdomen: soft, present bowel sounds Extremities: edema, no cyanosis Laboratory Tests Test 02/20/19 14:30 02/20/19 16:30 02/20/19 18:45 02/21/19 07:30 Arterial Blood pH 7.126 (7.350-7.450) 7.368 (7.350-7.450) Arterial Blood Partial Pressure CO2 82.4 mmHg (35.0-45.0) *H 43.1 mmHg (35.0-45.0) Arterial Blood Partial Pressure O2 71.4 mmHg (75.0-100.0) L 245.8 mmHg (75.0-100.0) H Arterial Blood HCO3 26.6 mmol/L (22.0-26.0) H 24.2 mmol/L (22.0-26.0) Arterial Blood Oxygen Saturation 86.7 % (95-100) *L 99.0 % (95-100) Arterial Blood Base Excess -3.5 (-2-2) L -1.1 (-2-2) Benny Test Positive Positive White Blood Count 12.7 K/UL (4.8-10.8) H 10.7 K/UL (4.8-10.8) Red Blood Count 2.94 M/UL (4.70-6.10) L 2.78 M/UL (4.70-6.10) L Hemoglobin 8.1 G/DL (14.2-18.0) L 7.8 G/DL (14.2-18.0) L Hematocrit 25.2 % (42.0-52.0) L 24.1 % (42.0-52.0) L Mean Corpuscular Volume 86 FL (80-99) 87 FL (80-99) Mean Corpuscular Hemoglobin 27.6 PG (27.0-31.0) 28.2 PG (27.0-31.0) Mean Corpuscular Hemoglobin Concent 32.3 G/DL (32.0-36.0) 32.5 G/DL (32.0-36.0) Red Cell Distribution Width 16.4 % (11.6-14.8) H 17.7 % (11.6-14.8) H Platelet Count 201 K/UL (150-450) 188 K/UL (150-450) Mean Platelet Volume 5.5 FL (6.5-10.1) L 5.8 FL (6.5-10.1) L Neutrophils (%) (Auto) 91.4 % (45.0-75.0) H % (45.0-75.0) Lymphocytes (%) (Auto) 3.9 % (20.0-45.0) L % (20.0-45.0) Monocytes (%) (Auto) 4.4 % (1.0-10.0) % (1.0-10.0) Eosinophils (%) (Auto) 0.0 % (0.0-3.0) % (0.0-3.0) Basophils (%) (Auto) 0.3 % (0.0-2.0) % (0.0-2.0) Sodium Level 138 MMOL/L (136-145) 135 MMOL/L (136-145) L Potassium Level 4.7 MMOL/L (3.5-5.1) 4.3 MMOL/L (3.5-5.1) Chloride Level 103 MMOL/L (98-107) 100 MMOL/L (98-107) Carbon Dioxide Level 23 MMOL/L (21-32) 24 MMOL/L (21-32) Anion Gap 12 mmol/L (5-15) 11 mmol/L (5-15) Blood Urea Nitrogen 59 mg/dL (7-18) H 54 mg/dL (7-18) H Creatinine 2.3 MG/DL (0.55-1.30) H 2.4 MG/DL (0.55-1.30) H Estimat Glomerular Filtration Rate 29.2 mL/min (>60) 27.8 mL/min (>60) Glucose Level 121 MG/DL (74-106) H 152 MG/DL (74-106) H Calcium Level 8.2 MG/DL (8.5-10.1) L 8.1 MG/DL (8.5-10.1) L Total Bilirubin 0.6 MG/DL (0.2-1.0) 0.7 MG/DL (0.2-1.0) Aspartate Amino Transf (AST/SGOT) 92 U/L (15-37) H 96 U/L (15-37) H Alanine Aminotransferase (ALT/SGPT) 71 U/L (12-78) 83 U/L (12-78) H Alkaline Phosphatase 106 U/L (46-116) 103 U/L (46-116) Total Protein 5.0 G/DL (6.4-8.2) L 5.5 G/DL (6.4-8.2) L Albumin 2.7 G/DL (3.4-5.0) L 2.5 G/DL (3.4-5.0) L Globulin 2.3 g/dL 3.0 g/dL Albumin/Globulin Ratio 1.2 (1.0-2.7) 0.8 (1.0-2.7) L Differential Total Cells Counted 100 Neutrophils % (Manual) 90 % (45-75) H Lymphocytes % (Manual) 8 % (20-45) L Monocytes % (Manual) 2 % (1-10) Eosinophils % (Manual) 0 % (0-3) Basophils % (Manual) 0 % (0-2) Band Neutrophils 0 % (0-8) Platelet Estimate Adequate Platelet Morphology Normal Red Blood Cell Morphology Normal Prothrombin Time 12.0 SEC (9.30-11.50) H Prothromb Time International Ratio 1.1 (0.9-1.1) Fibrinogen 472 mg/dL (200-400) H D-Dimer 0.58 mg/L FEU (0.00-0.49) H Phosphorus Level 3.6 MG/DL (2.5-4.9) Magnesium Level 1.8 MG/DL (1.8-2.4) C-Reactive Protein, Quantitative 12.6 mg/dL (0.00-0.90) H Pro-B-Type Natriuretic Peptide 62799 pg/mL (0-125) H Test 02/21/19 10:30 Fibrin Degradation Products, Quant Pending Plan Problems: (1) Hypoxia Assessment & Plan: Extensive bilateral upper lobe infiltrates likely inflammatory/infectious. Correlate clinically. Tuberculosis is not excludable. Bilateral pleural effusions. Endotracheal tube and nasogastric tube in good position Atherosclerotic vascular disease (2) Respiratory distress Assessment & Plan: intubated on vent support (3) Sepsis Assessment & Plan: Sepsis with tachycardia, leukocytosis, abnormal labs, respiratory distress on vent support via ET tube Cont IV abx CXR noted appreciate ICU team care abnormal lft's US noted will likely remove line soon now that improving will cont to follow with recs trend labs Rx as written Moiz Costa Feb 21, 2019 13:19
--- NOTE | 2019-02-21 14:20 | Cardiac Electrophysiology PN ---
Assessment/Plan Assessment/Plan 1. Non-ST elevation myocardial infarction with peak troponin of more than 10, down to 3.[address]-T wave abnormalities. Continue aspirin, Lipitor, Imdur and metoprolol 100 mg b.i.d. Cardiac catheterization after is stabilized. 2. Hypertension. Continue metoprolol 100 mg bid, Imdur 30 mg daily and hydralazine 100 q 8 hr 3. Respiratory failure due to Multilobar Pneumonia. Extubated 02/19/19. Reintubated 02/20/19 4. Hyperlipidemia. On Lipitor. 5. Human immunodeficiency virus. On anti-retroviral therapy with undetectable viral load. 6. ARF Cr 3.5. DW RN Subjective Subjective In ICU on the vent and fentanyl drip Objective Last 24 Hour Vital Signs Date Time Temp Pulse Resp B/P (MAP) Pulse Ox O2 Delivery O2 Flow Rate FiO2 02/21/19 13:02 94 33 60 02/21/19 13:00 94 33 138/72 (94) 99 02/21/19 12:44 35 Mechanical Ventilator 60 02/21/19 12:36 148/72 02/21/19 12:36 148/72 02/21/19 12:00 96 02/21/19 12:00 Mechanical Ventilator 02/21/19 12:00 99.9 97 34 148/72 (97) 99 02/21/19 12:00 60 02/21/19 11:00 110 38 60 02/21/19 11:00 104 24 139/68 (91) 99 02/21/19 10:28 109 145/65 02/21/19 10:27 108 145/65 02/21/19 10:20 109 30 100 Mechanical Ventilator 60 02/21/19 10:10 109 30 100 Mechanical Ventilator 60 02/21/19 10:00 108 27 145/65 (91) 100 02/21/19 09:22 107 30 60 02/21/19 09:00 105 26 141/64 (89) 100 02/21/19 08:00 60 02/21/19 08:00 Mechanical Ventilator 02/21/19 08:00 108 02/21/19 08:00 99.4 106 29 150/58 (88) 99 02/21/19 07:09 100 30 100 Mechanical Ventilator 60 02/21/19 07:05 100 Mechanical Ventilator 60 7/3/19 07:04 97 33 60 02/21/19 07:00 97 23 147/62 (90) 100 02/21/19 07:00 95 30 100 Mechanical Ventilator 60 02/21/19 06:00 102 23 153/65 (94) 100 02/21/19 05:57 154/65 02/21/19 05:57 154/65 02/21/19 05:57 154/65 02/21/19 05:30 105 35 60 02/21/19 05:00 102 31 154/65 (94) 100 02/21/19 04:00 60 02/21/19 04:00 97.6 100 25 145/74 (97) 98 02/21/19 04:00 100 02/21/19 04:00 Mechanical Ventilator Mechanical Ventilator 02/21/19 03:22 89 32 99 Mechanical Ventilator 60 02/21/19 03:13 98 36 60 02/21/19 03:12 97 34 98 Mechanical Ventilator 60 02/21/19 03:00 96 26 152/65 (94) 99 02/21/19 02:00 96 25 147/69 (95) 100 02/21/19 01:14 98 33 60 02/21/19 01:00 92 29 145/57 (86) 99 02/21/19 00:18 137/75 02/21/19 00:17 137/75 02/21/19 00:00 97.2 91 26 137/75 (95) 99 02/21/19 00:00 91 02/21/19 00:00 60 02/21/19 00:00 Mechanical Ventilator Mechanical Ventilator 02/20/19 23:06 82 32 99 Mechanical Ventilator 60 02/20/19 23:00 91 30 142/59 (86) 100 02/20/19 22:56 84 34 99 Mechanical Ventilator 60 02/20/19 22:55 92 35 60 02/20/19 22:42 145/68 02/20/19 22:00 89 20 145/68 (93) 99 02/20/19 21:10 89 36 60 02/20/19 21:00 91 24 146/65 (92) 98 02/20/19 20:39 90 111/70 02/20/19 20:00 Mechanical Ventilator Mechanical Ventilator 02/20/19 20:00 87 02/20/19 20:00 97.8 87 30 135/68 (90) 99 02/20/19 20:00 60 02/20/19 19:49 80 30 100 Mechanical Ventilator 60 02/20/19 19:11 84 32 100 Mechanical Ventilator 60 02/20/19 19:11 84 32 60 02/20/19 19:11 100 Mechanical Ventilator 60 02/20/19 19:00 81 26 132/69 (90) 99 02/20/19 18:00 86 19 156/71 (99) 99 02/20/19 17:50 60 02/20/19 17:49 156/71 02/20/19 17:48 156/71 02/20/19 17:06 85 33 60 02/20/19 17:00 82 25 167/68 (101) 100 02/20/19 16:38 80 02/20/19 16:00 79 02/20/19 16:00 Mechanical Ventilator Mechanical Ventilator 02/20/19 16:00 84 16 148/77 (100) 100 02/20/19 15:26 81 28 100 02/20/19 15:24 Mechanical Ventilator 100 02/20/19 15:24 Mechanical Ventilator 100 02/20/19 15:00 78 25 142/72 (95) 100 02/20/19 14:55 Mechanical Ventilator Mechanical Ventilator 02/20/19 14:55 100 Intake and Output 02/20/19 02/21/19 19:00 07:00 Intake Total 1251.000 ml 1060.0 ml Output Total 2270 ml 2120 ml Balance -1019.000 ml -1060.0 ml IV Total 1115.000 ml 1060.0 ml Tube Feeding 86 ml 0 ml Other 50 ml Output Urine Total 2250 ml 1520 ml Stool Total 20 ml 200 ml Gastric Drainage Total 400 ml Laboratory Tests Test 02/20/19 14:30 02/20/19 16:30 02/20/19 18:45 02/21/19 07:30 Arterial Blood pH 7.126 (7.350-7.450) 7.368 (7.350-7.450) Arterial Blood Partial Pressure CO2 82.4 mmHg (35.0-45.0) *H 43.1 mmHg (35.0-45.0) Arterial Blood Partial Pressure O2 71.4 mmHg (75.0-100.0) L 245.8 mmHg (75.0-100.0) H Arterial Blood HCO3 26.6 mmol/L (22.0-26.0) H 24.2 mmol/L (22.0-26.0) Arterial Blood Oxygen Saturation 86.7 % (95-100) *L 99.0 % (95-100) Arterial Blood Base Excess -3.5 (-2-2) L -1.1 (-2-2) Benny Test Positive Positive White Blood Count 12.7 K/UL (4.8-10.8) H 10.7 K/UL (4.8-10.8) Red Blood Count 2.94 M/UL (4.70-6.10) L 2.78 M/UL (4.70-6.10) L Hemoglobin 8.1 G/DL (14.2-18.0) L 7.8 G/DL (14.2-18.0) L Hematocrit 25.2 % (42.0-52.0) L 24.1 % (42.0-52.0) L Mean Corpuscular Volume 86 FL (80-99) 87 FL (80-99) Mean Corpuscular Hemoglobin 27.6 PG (27.0-31.0) 28.2 PG (27.0-31.0) Mean Corpuscular Hemoglobin Concent 32.3 G/DL (32.0-36.0) 32.5 G/DL (32.0-36.0) Red Cell Distribution Width 16.4 % (11.6-14.8) H 17.7 % (11.6-14.8) H Platelet Count 201 K/UL (150-450) 188 K/UL (150-450) Mean Platelet Volume 5.5 FL (6.5-10.1) L 5.8 FL (6.5-10.1) L Neutrophils (%) (Auto) 91.4 % (45.0-75.0) H % (45.0-75.0) Lymphocytes (%) (Auto) 3.9 % (20.0-45.0) L % (20.0-45.0) Monocytes (%) (Auto) 4.4 % (1.0-10.0) % (1.0-10.0) Eosinophils (%) (Auto) 0.0 % (0.0-3.0) % (0.0-3.0) Basophils (%) (Auto) 0.3 % (0.0-2.0) % (0.0-2.0) Sodium Level 138 MMOL/L (136-145) 135 MMOL/L (136-145) L Potassium Level 4.7 MMOL/L (3.5-5.1) 4.3 MMOL/L (3.5-5.1) Chloride Level 103 MMOL/L (98-107) 100 MMOL/L (98-107) Carbon Dioxide Level 23 MMOL/L (21-32) 24 MMOL/L (21-32) Anion Gap 12 mmol/L (5-15) 11 mmol/L (5-15) Blood Urea Nitrogen 59 mg/dL (7-18) H 54 mg/dL (7-18) H Creatinine 2.3 MG/DL (0.55-1.30) H 2.4 MG/DL (0.55-1.30) H Estimat Glomerular Filtration Rate 29.2 mL/min (>60) 27.8 mL/min (>60) Glucose Level 121 MG/DL (74-106) H 152 MG/DL (74-106) H Calcium Level 8.2 MG/DL (8.5-10.1) L 8.1 MG/DL (8.5-10.1) L Total Bilirubin 0.6 MG/DL (0.2-1.0) 0.7 MG/DL (0.2-1.0) Aspartate Amino Transf (AST/SGOT) 92 U/L (15-37) H 96 U/L (15-37) H Alanine Aminotransferase (ALT/SGPT) 71 U/L (12-78) 83 U/L (12-78) H Alkaline Phosphatase 106 U/L (46-116) 103 U/L (46-116) Total Protein 5.0 G/DL (6.4-8.2) L 5.5 G/DL (6.4-8.2) L Albumin 2.7 G/DL (3.4-5.0) L 2.5 G/DL (3.4-5.0) L Globulin 2.3 g/dL 3.0 g/dL Albumin/Globulin Ratio 1.2 (1.0-2.7) 0.8 (1.0-2.7) L Differential Total Cells Counted 100 Neutrophils % (Manual) 90 % (45-75) H Lymphocytes % (Manual) 8 % (20-45) L Monocytes % (Manual) 2 % (1-10) Eosinophils % (Manual) 0 % (0-3) Basophils % (Manual) 0 % (0-2) Band Neutrophils 0 % (0-8) Platelet Estimate Adequate Platelet Morphology Normal Red Blood Cell Morphology Normal Prothrombin Time 12.0 SEC (9.30-11.50) H Prothromb Time International Ratio 1.1 (0.9-1.1) Fibrinogen 472 mg/dL (200-400) H D-Dimer 0.58 mg/L FEU (0.00-0.49) H Phosphorus Level 3.6 MG/DL (2.5-4.9) Magnesium Level 1.8 MG/DL (1.8-2.4) C-Reactive Protein, Quantitative 12.6 mg/dL (0.00-0.90) H Pro-B-Type Natriuretic Peptide 42107 pg/mL (0-125) H Test 02/21/19 10:30 Fibrin Degradation Products, Quant Pending Microbiology Date/Time Source Procedure Growth Status 02/20/19 18:45 Indwelling Cath Urine Culture - Preliminary NO GROWTH Resulted Objective HEAD AND NECK: No JVD.Orally intubated with dry blood in nose and around mouth LUNGS: Coarse rhonchi. CARDIOVASCULAR: Regular S1 and S2 with no gallop or murmur. ABDOMEN: Soft. EXTREMITIES: No pitting edema. Murray Francois MD Feb 21, 2019 14:20
--- NOTE | 2019-02-21 16:21 | Hematology/Onc Progress Note ---
Assessment/Plan Assessment/Plan ASSESSMENT AND RECOMMENDATIONS # Anemia of chronic disease due to underlying chronic medical issues, multifactorial --> Anemia workup has been reviewed. Ferritin 182 --> No evidence of hemolysis is noted, peripheral smear has been reviewed. --> Hgb goal >7. Transfuse prn. --> Epogen or iron at this time is not particularly indicated --> Medications have been reviewed --> Stool OB negative --> bone marrow biopsy is not indicated given the other more likely causes --> Blood tx: 1 unit on 02/10/19, --> Hgb trend: 7.6-->8.2-->9.4-->8.4-->8.2 -->8.9-->10.3->7.9-->8.1->7.8 # Thrombocytopenia - potential causes multifactorial, likely related to HIV status --> Hep panel pending and HIV confirmed positive --> US abd to evaluate for cirrhosis hows hepatosplenomegaly --> Peripheral smear ordered to evaluate for blasts /schistocytes does not show any --> abx and other meds have been reviewed --> ok for ppx if plt >50k w/ either heparin or lovenox --> Transfuse if Plt < 20k and fever, or if Plt < 10k without fever --> Plt trend: 153-->257-->224-->205-->253-->310-->201 --> WILLIAM screen negative # Multilobar pneumonia in patient with HIV. Recs per ID. --> Broad sp atbx started. Continue Zosyn, Vancomycin and Azithromycin --> Droplet precaution # Hypoxemic respiratory failure. Pulm is following, appreciate recs. --> Bipap as needed, transition to O2 via NC when able --> Due to pneumonia, on abx --> now intubated 02/20 # Chest pain. 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 --> Trend troponin x3 --> NGT prn # HIV. --> Continue HARRT --> VL is undetectable per patient report. # HTN --> Resume home medication # DVT and GI ppx The time the note is entered does not reflect the time the patient was examined. I greatly appreciate the consultation. Subjective HEENT: Denies: no symptoms, eye pain, blurred vision, tearing, double vision, ear pain, ear discharge, nose pain, nose congestion, throat pain, throat swelling, mouth pain, mouth swelling, other Cardiovascular: Denies: no symptoms, chest pain, edema, irregular heart rate, lightheadedness, palpitations, syncope, other Respiratory: Denies: no symptoms, cough, shortness of breath, SOB with excertion, SOB at rest, sputum, wheezing, other Genitourinary: Denies: no symptoms, burning, discharge, frequency, flank pain, hematuria, incontinence, pain, urgency, other Neurologic/Psychiatric: Denies: no symptoms, anxiety, depressed, emotional problems, headache, numbness, paresthesia, pre-existing deficit, seizure, tingling, tremors, weakness, other Hematologic/Lymphatic: Denies: no symptoms, anemia, easy bleeding, easy bruising, adenopathy, other Allergies: Coded Allergies: No Known Allergies (Unverified , 02/05/13) Subjective 02/11: Hgb yesterday was 7.6, s/p 1 unit prbc. Current hgb at 8.2. Pt attempted to pull out tubes per nursing team, soft restraints applied. 02/13: Pt in ICU and intubated. Pt currently sedated. Current hgb 9.4. 02/14: Pt remains in icu, sedated. Hgb stable. 02/15: Remains in icu, lethargic. No acute events. Hgb stable. 02/16: Remains in icu. CXR today shows worsening CHF/pulmonary edema. Pt wake and sedation decrease for weaning. 02/18: Remains in icu. Pt on vent. CXR today shows pulmonary edema, persistent small left pleural effusion. 02/19: Remains in the icu, now extubated, seen by pulm, labs reviewed 02/20: Remains in ICU, Pt intubated, CXR today shows Congestive heart failure with interval worsening 02/21: reintubated, tolerating vent well, seen by pulm/cc Objective Objective Current Medications Medications (Trade) Dose Ordered Sig/Marquis Route PRN Reason Start Time Stop Time Status Last Admin Dose Admin Acetaminophen (Tylenol) 650 mg Q4H PRN ORAL Mild Pain (Pain Scale 1-3) 02/07/19 11:15 03/08/19 17:29 02/07/19 23:01 Acetaminophen/ Butalbital/ Caffeine (Fioricet) 1 tab Q8H PRN ORAL For Headache 02/08/19 17:15 03/10/19 17:14 Albuterol/ Ipratropium (Albuterol/ Ipratropium) 3 ml Q4HRT HHN 02/20/19 03:00 02/25/19 02:59 02/21/19 15:13 Amlodipine Besylate (Norvasc) 10 mg DAILY NG 02/15/19 09:00 03/14/19 15:59 02/21/19 10:27 Artificial Tears (Lacri-Lube) 1 applic AC+HS BOTH EYES 02/18/19 06:30 03/20/19 06:29 02/21/19 12:36 Aspirin (Ecotrin) 81 mg DAILY ORAL 02/08/19 09:00 03/09/19 08:59 02/20/19 08:33 Atorvastatin Calcium (Lipitor) 10 mg QHS ORAL 02/17/19 21:00 03/10/19 20:59 02/20/19 20:38 Bisacodyl (Dulcolax) 5 mg DAILYPRN PRN ORAL Constipation 02/08/19 17:15 03/10/19 17:14 02/18/19 20:13 Chlorhexidine Gluconate (Jessy-Hex 2%) 1 applic DAILY@2000 TOPIC 02/13/19 20:00 03/15/19 19:59 02/20/19 19:48 Clonidine HCl (Catapres Tab) 0.1 mg EVERY 6 HOURS NG 02/20/19 12:00 03/19/19 13:59 02/21/19 12:36 Dextrose (Dextrose 50%) 25 ml Q30M PRN IV Hypoglycemia 02/20/19 06:45 03/22/19 06:44 Dextrose (Dextrose 50%) 50 ml Q30M PRN IV Hypoglycemia 02/20/19 06:45 03/22/19 06:44 02/20/19 08:49 Docusate Sodium (Colace) 100 mg TID GT 02/12/19 18:00 03/12/19 08:59 02/20/19 17:48 Enoxaparin Sodium (Lovenox) 40 mg Q24H SUBQ 02/07/19 21:00 03/08/19 20:59 02/19/19 20:40 Fentanyl Citrate 1000 mcg/Sodium Chloride 100 ml @ 0 mls/hr Q24H IV 02/21/19 13:00 02/28/19 12:59 02/21/19 12:44 Fluconazole/ Sodium Chloride 100 ml @ 100 mls/hr Q24H IV 02/20/19 18:00 02/27/19 17:59 02/20/19 18:03 Guaifenesin (Mucinex ER) 600 mg TWICE A DAY ORAL 02/07/19 18:00 03/09/19 08:59 02/21/19 10:26 Hydralazine HCl (Apresoline) 10 mg Q4H PRN IV bp over 165 syst 02/17/19 10:15 03/19/19 10:14 02/19/19 14:45 Hydralazine HCl (Apresoline) 100 mg Q8HR NG 02/19/19 22:00 03/21/19 21:59 02/21/19 15:53 Insulin Aspart (NovoLOG) EVERY 4 HOURS SUBQ 02/15/19 21:00 03/17/19 20:59 02/21/19 12:43 Insulin Detemir (Levemir) 10 units BID SUBQ 02/20/19 09:00 03/22/19 08:59 02/21/19 10:39 Isosorbide Dinitrate (Isordil) 20 mg Q6HR NG 02/15/19 12:00 03/15/19 12:59 02/21/19 12:36 Lansoprazole (Prevacid) 30 mg BID NG 02/12/19 18:00 03/14/19 17:59 02/21/19 10:25 Lorazepam (Ativan 2mg/ml 1ml) 2 mg Q2H PRN IV agitation/restlessness 02/19/19 22:00 02/26/19 21:44 02/21/19 08:00 Lorazepam (Ativan) 1 mg Q4H PRN ORAL For Anxiety 02/19/19 15:15 02/26/19 15:14 02/19/19 15:21 Methylprednisolone Sodium Succinate (Solu-MEDROL) 10 mg EVERY 12 HOURS IVP 02/19/19 21:00 03/12/19 20:59 02/21/19 10:27 Metolazone (Zaroxolyn) 10 mg DAILY NG 02/19/19 10:00 03/21/19 09:59 02/21/19 10:26 Metoprolol Tartrate (Lopressor) 100 mg Q12HR ORAL 02/07/19 21:00 03/08/19 20:59 02/21/19 10:28 Midazolam HCl (Versed 2mg/2ml vial) 1 mg Q2H PRN IVP Agitation 02/13/19 08:45 03/15/19 08:44 02/14/19 05:49 Neomycin/ Polymyxin/ Dexamethasone (Maxitrol Opth Oint) 1 applic BEDTIME BOTH EYES 02/18/19 21:00 03/20/19 20:59 02/20/19 20:38 Nitroglycerin (Ntg) 0.4 mg Q5M PRN SL Prn Chest Pain 02/07/19 11:00 03/08/19 17:29 02/08/19 07:42 Ondansetron HCl (Zofran) 4 mg Q6H PRN IVP Nausea & Vomiting 02/07/19 11:15 03/08/19 11:14 02/09/19 00:58 Patient Own Medication (Patient's Own Med) 1 ea BID ORAL 02/07/19 18:00 03/09/19 17:59 02/21/19 10:25 Patient Own Medication (Patient's Own Med) 1 ea Q48H ORAL 02/18/19 09:00 03/20/19 08:59 02/20/19 08:33 Patient Own Medication (Patient's Own Med) 2 ea DAILY ORAL 02/08/19 09:00 03/10/19 08:59 02/21/19 10:25 Piperacillin Sod/ Tazobactam Sod 3.375 gm/Sodium Chloride 110 ml @ 27.5 mls/hr EVERY 8 HOURS IVPB 02/20/19 14:00 02/25/19 13:59 02/21/19 15:53 Polyethylene Glycol (Miralax) 17 gm BEDTIME ORAL 02/08/19 21:00 03/10/19 20:59 02/19/19 20:39 Sennosides (Senokot) 8.6 mg DAILY ORAL 02/13/19 12:00 03/15/19 11:59 02/21/19 10:26 Trimethoprim/ Sulfamethoxazole 25 ml/Dextrose 575 ml @ 383.333 mls/hr [id number] BACTRIM IV 02/20/19 12:00 02/27/19 11:59 02/21/19 15:53 Vancomycin HCl (Vanco rx to dose) 1 ea DAILY PRN MISC . 02/10/19 19:45 03/12/19 19:44 Vancomycin HCl/ Dextrose 275 ml @ 183.333 mls/hr Q18H IVPB 02/21/19 03:00 02/26/19 02:59 02/21/19 03:06 Last 24 Hour Vital Signs Date Time Temp Pulse Resp B/P (MAP) Pulse Ox O2 Delivery O2 Flow Rate FiO2 02/21/19 16:00 99.5 92 25 141/71 (94) 99 02/21/19 15:53 156/77 02/21/19 15:14 110 36 100 Mechanical Ventilator 60 02/21/19 15:10 100 33 60 02/21/19 15:00 Mechanical Ventilator 60 02/21/19 15:00 100 34 100 Mechanical Ventilator 60 02/21/19 15:00 92 25 156/77 (103) 99 02/21/19 14:30 91 28 145/72 (96) 99 02/21/19 14:00 91 28 145/70 (95) 99 02/21/19 14:00 Mechanical Ventilator 60 02/21/19 13:30 95 27 147/70 (95) 99 02/21/19 13:04 Mechanical Ventilator 60 02/21/19 13:02 94 33 60 02/21/19 13:00 94 33 138/72 (94) 99 02/21/19 12:59 Mechanical Ventilator 60 02/21/19 12:54 Mechanical Ventilator 60 02/21/19 12:49 Mechanical Ventilator 60 02/21/19 12:44 35 Mechanical Ventilator 60 02/21/19 12:36 148/72 02/21/19 12:36 148/72 02/21/19 12:00 96 02/21/19 12:00 Mechanical Ventilator 02/21/19 12:00 99.9 97 34 148/72 (97) 99 02/21/19 12:00 60 02/21/19 11:00 110 38 60 02/21/19 11:00 104 24 139/68 (91) 99 02/21/19 10:28 109 145/65 02/21/19 10:27 108 145/65 02/21/19 10:20 109 30 100 Mechanical Ventilator 60 02/21/19 10:10 109 30 100 Mechanical Ventilator 60 02/21/19 10:00 108 27 145/65 (91) 100 02/21/19 09:22 107 30 60 02/21/19 09:00 105 26 141/64 (89) 100 02/21/19 08:00 60 02/21/19 08:00 Mechanical Ventilator 02/21/19 08:00 108 02/21/19 08:00 99.4 106 29 150/58 (88) 99 02/21/19 07:09 100 30 100 Mechanical Ventilator 60 02/21/19 07:05 100 Mechanical Ventilator 60 02/21/19 07:04 97 33 60 02/21/19 07:00 97 23 147/62 (90) 100 02/21/19 07:00 95 30 100 Mechanical Ventilator 60 02/21/19 06:00 102 23 153/65 (94) 100 02/21/19 05:57 154/65 02/21/19 05:57 154/65 02/21/19 05:57 154/65 02/21/19 05:30 105 35 60 02/21/19 05:00 102 31 154/65 (94) 100 02/21/19 04:00 60 02/21/19 04:00 97.6 100 25 145/74 (97) 98 02/21/19 04:00 100 02/21/19 04:00 Mechanical Ventilator Mechanical Ventilator 02/21/19 03:22 89 32 99 Mechanical Ventilator 60 02/21/19 03:13 98 36 60 02/21/19 03:12 97 34 98 Mechanical Ventilator 60 02/21/19 03:00 96 26 152/65 (94) 99 02/21/19 02:00 96 25 147/69 (95) 100 02/21/19 01:14 98 33 60 02/21/19 01:00 92 29 145/57 (86) 99 02/21/19 00:18 137/75 02/21/19 00:17 137/75 02/21/19 00:00 97.2 91 26 137/75 (95) 99 02/21/19 00:00 91 7/3/19 00:00 60 02/21/19 00:00 Mechanical Ventilator Mechanical Ventilator 02/20/19 23:06 82 32 99 Mechanical Ventilator 60 02/20/19 23:00 91 30 142/59 (86) 100 02/20/19 22:56 84 34 99 Mechanical Ventilator 60 02/20/19 22:55 92 35 60 02/20/19 22:42 145/68 02/20/19 22:00 89 20 145/68 (93) 99 02/20/19 21:10 89 36 60 02/20/19 21:00 91 24 146/65 (92) 98 02/20/19 20:39 90 111/70 02/20/19 20:00 Mechanical Ventilator Mechanical Ventilator 02/20/19 20:00 87 02/20/19 20:00 97.8 87 30 135/68 (90) 99 02/20/19 20:00 60 02/20/19 19:49 80 30 100 Mechanical Ventilator 60 02/20/19 19:11 84 32 100 Mechanical Ventilator 60 02/20/19 19:11 84 32 60 02/20/19 19:11 100 Mechanical Ventilator 60 02/20/19 19:00 81 26 132/69 (90) 99 02/20/19 18:00 86 19 156/71 (99) 99 02/20/19 17:50 60 02/20/19 17:49 156/71 02/20/19 17:48 156/71 02/20/19 17:06 85 33 60 02/20/19 17:00 82 25 167/68 (101) 100 02/20/19 16:38 80 02/20/19 16:00 79 02/20/19 16:00 Mechanical Ventilator Mechanical Ventilator 02/20/19 16:00 84 16 148/77 (100) 100 02/20/19 15:26 81 28 100 02/20/19 15:24 Mechanical Ventilator 100 02/20/19 15:24 Mechanical Ventilator 100 02/20/19 15:00 78 25 142/72 (95) 100 02/20/19 14:55 Mechanical Ventilator Mechanical Ventilator 02/20/19 14:55 100 02/20/19 14:00 79 27 150/74 (99) 77 02/20/19 13:39 164/79 02/20/19 13:11 87 33 91 Facial 60 02/20/19 13:00 98.3 87 28 135/70 (91) 93 02/20/19 12:01 106/63 02/20/19 12:00 88 02/20/19 12:00 91 28 135/70 (91) 93 02/20/19 12:00 106/63 02/20/19 12:00 Venturi Mask Venturi Mask 02/20/19 12:00 15.0 02/20/19 11:05 Venturi Mask 14.0 55 02/20/19 11:05 118 24 95 02/20/19 11:05 Venturi Mask 14.0 55 02/20/19 11:00 88 23 143/125 (131) 95 02/20/19 10:00 85 26 176/74 (108) 93 02/20/19 09:45 85 22 98 02/20/19 09:00 78 20 149/61 (90) 100 02/20/19 08:32 78 162/71 02/20/19 08:32 78 162/71 02/20/19 08:00 Bi-pap Bi-pap 02/20/19 08:00 60 02/20/19 08:00 77 02/20/19 08:00 97.9 79 18 162/71 (101) 100 02/20/19 07:04 82 27 100 Bi-Pap 60 02/20/19 07:04 Bi-Pap 60 02/20/19 07:02 84 30 100 Facial 60 02/20/19 07:00 83 29 105/82 (90) 100 02/20/19 06:57 83 30 100 Bi-Pap 60 02/20/19 06:00 86 25 133/69 (90) 100 02/20/19 05:16 140/84 02/20/19 05:15 140/84 02/20/19 05:14 140/84 02/20/19 05:02 88 28 97 Facial 60 02/20/19 05:00 85 28 149/81 (103) 100 02/20/19 04:30 85 20 154/68 (96) 100 02/20/19 04:00 60 02/20/19 04:00 99.5 90 25 146/68 (94) 98 02/20/19 04:00 86 02/20/19 04:00 Bi-pap Bi-pap 02/20/19 03:00 91 31 159/80 (106) 99 02/20/19 02:57 91 29 98 Bi-Pap 60 02/20/19 02:39 87 28 94 Bi-Pap 65 02/20/19 02:37 87 29 94 Facial 65 02/20/19 02:00 85 28 152/76 (101) 93 02/20/19 01:30 84 27 140/84 (102) 85 02/20/19 01:02 88 27 91 Facial 70 02/20/19 01:00 86 28 136/90 (105) 94 02/20/19 00:30 87 29 137/70 (92) 90 02/20/19 00:16 149/86 02/20/19 00:00 Bi-pap Bi-pap 02/20/19 00:00 70 02/20/19 00:00 98.6 89 29 149/86 (107) 90 02/20/19 00:00 83 02/19/19 23:30 88 27 139/90 (106) 87 02/19/19 23:00 87 26 143/78 (99) 93 02/19/19 22:57 84 29 95 Facial 70 02/19/19 22:00 89 27 129/110 (116) 90 02/19/19 21:39 138/96 02/19/19 21:38 138/96 02/19/19 21:00 95 23 148/92 (110) 98 02/19/19 20:53 101 26 97 Facial 75 02/19/19 20:39 103 138/96 02/19/19 20:00 Bi-pap Bi-pap 02/19/19 20:00 75 02/19/19 20:00 99.0 103 28 159/73 (101) 88 02/19/19 20:00 87 02/19/19 19:20 103 22 88 Cool Aerosol 10.0 50 02/19/19 19:13 86 Cool Aerosol 10.0 50 02/19/19 19:13 109 26 87 Cool Aerosol 50 02/19/19 19:00 104 30 138/96 (110) 86 02/19/19 18:30 104 30 164/88 (113) 89 02/19/19 18:00 101 25 166/78 (107) 93 02/19/19 17:33 159/88 02/19/19 17:30 103 26 179/65 (103) 92 7/1/19 17:00 104 27 159/80 (106) 91 02/19/19 16:30 104 27 150/111 (124) 91 Intake and Output 02/20/19 02/21/19 19:00 07:00 Intake Total 1251.000 ml 1060.0 ml Output Total 2270 ml 2120 ml Balance -1019.000 ml -1060.0 ml IV Total 1115.000 ml 1060.0 ml Tube Feeding 86 ml 0 ml Other 50 ml Output Urine Total 2250 ml 1520 ml Stool Total 20 ml 200 ml Gastric Drainage Total 400 ml Labs Test 02/19/19 05:00 02/19/19 14:36 02/20/19 05:20 02/20/19 07:47 White Blood Count 5.7 K/UL (4.8-10.8) 17.8 K/UL (4.8-10.8) Red Blood Count 2.84 M/UL (4.70-6.10) 3.23 M/UL (4.70-6.10) Hemoglobin 7.9 G/DL (14.2-18.0) 9.1 G/DL (14.2-18.0) Hematocrit 24.3 % (42.0-52.0) 28.1 % (42.0-52.0) Mean Corpuscular Volume 86 FL (80-99) 87 FL (80-99) Mean Corpuscular Hemoglobin 28.0 PG (27.0-31.0) 28.3 PG (27.0-31.0) Mean Corpuscular Hemoglobin Concent 32.6 G/DL (32.0-36.0) 32.6 G/DL (32.0-36.0) Red Cell Distribution Width 17.2 % (11.6-14.8) 17.4 % (11.6-14.8) Platelet Count 202 K/UL (150-450) 262 K/UL (150-450) Mean Platelet Volume 5.9 FL (6.5-10.1) 6.1 FL (6.5-10.1) Neutrophils (%) (Auto) % (45.0-75.0) % (45.0-75.0) Lymphocytes (%) (Auto) % (20.0-45.0) % (20.0-45.0) Monocytes (%) (Auto) % (1.0-10.0) % (1.0-10.0) Eosinophils (%) (Auto) % (0.0-3.0) % (0.0-3.0) Basophils (%) (Auto) % (0.0-2.0) % (0.0-2.0) Differential Total Cells Counted 100 100 Neutrophils % (Manual) 89 % (45-75) 95 % (45-75) Lymphocytes % (Manual) 9 % (20-45) 2 % (20-45) Monocytes % (Manual) 2 % (1-10) 3 % (1-10) Eosinophils % (Manual) 0 % (0-3) 0 % (0-3) Basophils % (Manual) 0 % (0-2) 0 % (0-2) Band Neutrophils 0 % (0-8) 0 % (0-8) Platelet Estimate Adequate Adequate Platelet Morphology Normal Normal Hypochromasia 3+ 2+ Anisocytosis 1+ 1+ Spherocytes 1+ Sodium Level 138 MMOL/L (136-145) 138 MMOL/L (136-145) Potassium Level 4.5 MMOL/L (3.5-5.1) 4.7 MMOL/L (3.5-5.1) Chloride Level 107 MMOL/L (98-107) 103 MMOL/L (98-107) Carbon Dioxide Level 24 MMOL/L (21-32) 26 MMOL/L (21-32) Anion Gap 7 mmol/L (5-15) 9 mmol/L (5-15) Blood Urea Nitrogen 59 mg/dL (7-18) 56 mg/dL (7-18) Creatinine 2.3 MG/DL (0.55-1.30) 2.3 MG/DL (0.55-1.30) Estimat Glomerular Filtration Rate 29.2 mL/min (>60) 29.2 mL/min (>60) Glucose Level 194 MG/DL (74-106) 68 MG/DL (74-106) Uric Acid 2.8 MG/DL (2.6-7.2) 2.8 MG/DL (2.6-7.2) Calcium Level 7.6 MG/DL (8.5-10.1) 8.5 MG/DL (8.5-10.1) Phosphorus Level 3.9 MG/DL (2.5-4.9) 4.8 MG/DL (2.5-4.9) Magnesium Level 1.9 MG/DL (1.8-2.4) 1.8 MG/DL (1.8-2.4) Total Bilirubin 0.3 MG/DL (0.2-1.0) 0.5 MG/DL (0.2-1.0) Aspartate Amino Transf (AST/SGOT) 43 U/L (15-37) 89 U/L (15-37) Alanine Aminotransferase (ALT/SGPT) 49 U/L (12-78) 68 U/L (12-78) Alkaline Phosphatase 115 U/L (46-116) 121 U/L (46-116) C-Reactive Protein, Quantitative 1.1 mg/dL (0.00-0.90) 5.4 mg/dL (0.00-0.90) Pro-B-Type Natriuretic Peptide 4189 pg/mL (0-125) 58357 pg/mL (0-125) Total Protein 4.7 G/DL (6.4-8.2) 5.7 G/DL (6.4-8.2) Albumin 1.6 G/DL (3.4-5.0) 2.4 G/DL (3.4-5.0) Globulin 3.1 g/dL 3.3 g/dL Albumin/Globulin Ratio 0.5 (1.0-2.7) 0.7 (1.0-2.7) Arterial Blood pH 7.353 (7.350-7.450) 7.393 (7.350-7.450) Arterial Blood Partial Pressure CO2 38.0 mmHg (35.0-45.0) 38.8 mmHg (35.0-45.0) Arterial Blood Partial Pressure O2 67.6 mmHg (75.0-100.0) 104.4 mmHg (75.0-100.0) Arterial Blood HCO3 20.7 mmol/L (22.0-26.0) 23.1 mmol/L (22.0-26.0) Arterial Blood Oxygen Saturation 91.2 % (95-100) 97.0 % (95-100) Arterial Blood Base Excess -4.4 (-2-2) -1.6 (-2-2) Benny Test Positive Positive Random Vancomycin Level 8.2 ug/mL Test 02/20/19 14:30 02/20/19 16:30 02/20/19 18:45 02/21/19 07:30 Arterial Blood pH 7.126 (7.350-7.450) 7.368 (7.350-7.450) Arterial Blood Partial Pressure CO2 82.4 mmHg (35.0-45.0) 43.1 mmHg (35.0-45.0) Arterial Blood Partial Pressure O2 71.4 mmHg (75.0-100.0) 245.8 mmHg (75.0-100.0) Arterial Blood HCO3 26.6 mmol/L (22.0-26.0) 24.2 mmol/L (22.0-26.0) Arterial Blood Oxygen Saturation 86.7 % (95-100) 99.0 % (95-100) Arterial Blood Base Excess -3.5 (-2-2) -1.1 (-2-2) Benny Test Positive Positive White Blood Count 12.7 K/UL (4.8-10.8) 10.7 K/UL (4.8-10.8) Red Blood Count 2.94 M/UL (4.70-6.10) 2.78 M/UL (4.70-6.10) Hemoglobin 8.1 G/DL (14.2-18.0) 7.8 G/DL (14.2-18.0) Hematocrit 25.2 % (42.0-52.0) 24.1 % (42.0-52.0) Mean Corpuscular Volume 86 FL (80-99) 87 FL (80-99) Mean Corpuscular Hemoglobin 27.6 PG (27.0-31.0) 28.2 PG (27.0-31.0) Mean Corpuscular Hemoglobin Concent 32.3 G/DL (32.0-36.0) 32.5 G/DL (32.0-36.0) Red Cell Distribution Width 16.4 % (11.6-14.8) 17.7 % (11.6-14.8) Platelet Count 201 K/UL (150-450) 188 K/UL (150-450) Mean Platelet Volume 5.5 FL (6.5-10.1) 5.8 FL (6.5-10.1) Neutrophils (%) (Auto) 91.4 % (45.0-75.0) % (45.0-75.0) Lymphocytes (%) (Auto) 3.9 % (20.0-45.0) % (20.0-45.0) Monocytes (%) (Auto) 4.4 % (1.0-10.0) % (1.0-10.0) Eosinophils (%) (Auto) 0.0 % (0.0-3.0) % (0.0-3.0) Basophils (%) (Auto) 0.3 % (0.0-2.0) % (0.0-2.0) Sodium Level 138 MMOL/L (136-145) 135 MMOL/L (136-145) Potassium Level 4.7 MMOL/L (3.5-5.1) 4.3 MMOL/L (3.5-5.1) Chloride Level 103 MMOL/L (98-107) 100 MMOL/L (98-107) Carbon Dioxide Level 23 MMOL/L (21-32) 24 MMOL/L (21-32) Anion Gap 12 mmol/L (5-15) 11 mmol/L (5-15) Blood Urea Nitrogen 59 mg/dL (7-18) 54 mg/dL (7-18) Creatinine 2.3 MG/DL (0.55-1.30) 2.4 MG/DL (0.55-1.30) Estimat Glomerular Filtration Rate 29.2 mL/min (>60) 27.8 mL/min (>60) Glucose Level 121 MG/DL (74-106) 152 MG/DL (74-106) Calcium Level 8.2 MG/DL (8.5-10.1) 8.1 MG/DL (8.5-10.1) Total Bilirubin 0.6 MG/DL (0.2-1.0) 0.7 MG/DL (0.2-1.0) Aspartate Amino Transf (AST/SGOT) 92 U/L (15-37) 96 U/L (15-37) Alanine Aminotransferase (ALT/SGPT) 71 U/L (12-78) 83 U/L (12-78) Alkaline Phosphatase 106 U/L (46-116) 103 U/L (46-116) Total Protein 5.0 G/DL (6.4-8.2) 5.5 G/DL (6.4-8.2) Albumin 2.7 G/DL (3.4-5.0) 2.5 G/DL (3.4-5.0) Globulin 2.3 g/dL 3.0 g/dL Albumin/Globulin Ratio 1.2 (1.0-2.7) 0.8 (1.0-2.7) Differential Total Cells Counted 100 Neutrophils % (Manual) 90 % (45-75) Lymphocytes % (Manual) 8 % (20-45) Monocytes % (Manual) 2 % (1-10) Eosinophils % (Manual) 0 % (0-3) Basophils % (Manual) 0 % (0-2) Band Neutrophils 0 % (0-8) Platelet Estimate Adequate Platelet Morphology Normal Red Blood Cell Morphology Normal Prothrombin Time 12.0 SEC (9.30-11.50) Prothromb Time International Ratio 1.1 (0.9-1.1) Fibrinogen 472 mg/dL (200-400) D-Dimer 0.58 mg/L FEU (0.00-0.49) Phosphorus Level 3.6 MG/DL (2.5-4.9) Magnesium Level 1.8 MG/DL (1.8-2.4) C-Reactive Protein, Quantitative 12.6 mg/dL (0.00-0.90) Pro-B-Type Natriuretic Peptide 91037 pg/mL (0-125) Test 02/21/19 10:30 Micro Microbiology Date/Time Source Procedure Growth Status 02/20/19 18:45 Indwelling Cath Urine Culture - Preliminary NO GROWTH Resulted Height (Feet): 6 Height (Inches): 0.00 Weight (Pounds): 272 Objective PHYSICAL EXAMINATION: GENERAL: NAD VITAL SIGNS: Have been reviewed. HEAD AND NECK: Shows no JVD. NG+ TRACH+ LUNGS: Coarse rhonchi. CARDIOVASCULAR: Shows regular S1 and S2 with no gallop or murmur. ABDOMEN: Soft. EXTREMITIES: No pitting edema. Chan Hernandez MD Feb 21, 2019 16:21
--- NOTE | 2019-02-21 16:45 | NUR ---
NURSE NOTES: Dr. Douglas covering Dr. Lutz updated on patient status at the bedside, patient remains on fentanyl at 50mcg/hr at rate of 5ml/hr, tube feeding remains running at 15ml/hr. Venous Duplex of the Left leg ordered to rule out dvt.
--- NOTE | 2019-02-21 17:13 | NUR ---
NURSE NOTES: Patient remains sedated on fentanyl drip at 50mcg/min at 5ml/hr with RASS of -2, HR remains at 85 in sinus rhythm and BP of 130/57, remains saturating at 100% on FIO2 at 60%. patient is calm and sleeping, but awakes with light pain over the nail bed of the hand, Simon remains draining 100-150m/hr, tube feeding remains at 15mll/hr through NG-tube, will continue to monitor.
--- NOTE | 2019-02-21 18:14 | NUR ---
NURSE NOTES: Venous duplex completed on the left lower extremity, preliminary resulted at negative for DVT but noted to have seen edema,
--- NOTE | 2019-02-21 18:57 | General Progress Note ---
Assessment/Plan Problem List: (1) ISH (acute kidney injury) ICD Codes: N17.9 - Acute kidney failure, unspecified SNOMED: 47677179 (2) Uncontrolled type 2 diabetes mellitus with chronic kidney disease ICD Codes: E11.22 - Type 2 diabetes mellitus with diabetic chronic kidney disease; E11.65 - Type 2 diabetes mellitus with hyperglycemia SNOMED: 84005191, 375596310, 380139234 (3) HIV disease ICD Codes: B20 - Human immunodeficiency virus [HIV] disease SNOMED: 20799148 (4) Respiratory distress ICD Codes: R06.03 - Acute respiratory distress SNOMED: 809424224 Status: unchanged Assessment/Plan: - increase Levemir to 16 units bid - continue Novolog sliding scale resistant scale every 4 hours Subjective ROS Limited/Unobtainable: Yes Allergies: Coded Allergies: No Known Allergies (Unverified , 02/05/13) Subjective events noted glucose values in the higher range Item Value Date Time Bedside Blood Glucose 215 mg/dl H 02/21/19 1839 Bedside Blood Glucose 200 mg/dl H 02/21/19 1243 Bedside Blood Glucose 210 mg/dl H 02/21/19 1039 Bedside Blood Glucose 170 mg/dl H 02/21/19 0600 Bedside Blood Glucose 151 mg/dl H 02/21/19 0156 Objective Last 24 Hour Vital Signs Date Time Temp Pulse Resp B/P (MAP) Pulse Ox O2 Delivery O2 Flow Rate FiO2 02/21/19 18:34 152/65 02/21/19 18:33 152/65 02/21/19 18:30 94 21 152/65 (94) 97 02/21/19 18:00 93 33 151/61 (91) 95 02/21/19 17:30 93 27 140/69 (92) 97 02/21/19 17:00 82 24 60 02/21/19 17:00 86 28 134/66 (88) 100 02/21/19 17:00 26 Mechanical Ventilator 60 02/21/19 16:00 60 02/21/19 16:00 92 02/21/19 16:00 99.5 92 25 141/71 (94) 99 02/21/19 16:00 Mechanical Ventilator 02/21/19 16:00 24 Mechanical Ventilator 60 02/21/19 15:53 156/77 02/21/19 15:14 110 36 100 Mechanical Ventilator 60 02/21/19 15:10 100 33 60 02/21/19 15:00 Mechanical Ventilator 60 02/21/19 15:00 100 34 100 Mechanical Ventilator 60 02/21/19 15:00 92 25 156/77 (103) 99 02/21/19 14:30 91 28 145/72 (96) 99 02/21/19 14:00 91 28 145/70 (95) 99 02/21/19 14:00 Mechanical Ventilator 60 02/21/19 13:30 95 27 147/70 (95) 99 02/21/19 13:04 Mechanical Ventilator 60 02/21/19 13:02 94 33 60 02/21/19 13:00 94 33 138/72 (94) 99 02/21/19 12:59 Mechanical Ventilator 60 02/21/19 12:54 Mechanical Ventilator 60 02/21/19 12:49 Mechanical Ventilator 60 02/21/19 12:44 35 Mechanical Ventilator 60 02/21/19 12:36 148/72 02/21/19 12:36 148/72 02/21/19 12:00 96 02/21/19 12:00 Mechanical Ventilator 02/21/19 12:00 99.9 97 34 148/72 (97) 99 02/21/19 12:00 60 02/21/19 11:00 110 38 60 02/21/19 11:00 104 24 139/68 (91) 99 02/21/19 10:28 109 145/65 02/21/19 10:27 108 145/65 02/21/19 10:20 109 30 100 Mechanical Ventilator 60 02/21/19 10:10 109 30 100 Mechanical Ventilator 60 02/21/19 10:00 108 27 145/65 (91) 100 02/21/19 09:22 107 30 60 02/21/19 09:00 105 26 141/64 (89) 100 02/21/19 08:00 60 02/21/19 08:00 Mechanical Ventilator 02/21/19 08:00 108 02/21/19 08:00 99.4 106 29 150/58 (88) 99 02/21/19 07:09 100 30 100 Mechanical Ventilator 60 02/21/19 07:05 100 Mechanical Ventilator 60 02/21/19 07:04 97 33 60 02/21/19 07:00 97 23 147/62 (90) 100 02/21/19 07:00 95 30 100 Mechanical Ventilator 60 02/21/19 06:00 102 23 153/65 (94) 100 02/21/19 05:57 154/65 02/21/19 05:57 154/65 02/21/19 05:57 154/65 02/21/19 05:30 105 35 60 02/21/19 05:00 102 31 154/65 (94) 100 02/21/19 04:00 60 02/21/19 04:00 97.6 100 25 145/74 (97) 98 02/21/19 04:00 100 02/21/19 04:00 Mechanical Ventilator Mechanical Ventilator 02/21/19 03:22 89 32 99 Mechanical Ventilator 60 02/21/19 03:13 98 36 60 02/21/19 03:12 97 34 98 Mechanical Ventilator 60 02/21/19 03:00 96 26 152/65 (94) 99 02/21/19 02:00 96 25 147/69 (95) 100 02/21/19 01:14 98 33 60 02/21/19 01:00 92 29 145/57 (86) 99 02/21/19 00:18 137/75 02/21/19 00:17 137/75 02/21/19 00:00 97.2 91 26 137/75 (95) 99 02/21/19 00:00 91 02/21/19 00:00 60 02/21/19 00:00 Mechanical Ventilator Mechanical Ventilator 02/20/19 23:06 82 32 99 Mechanical Ventilator 60 02/20/19 23:00 91 30 142/59 (86) 100 02/20/19 22:56 84 34 99 Mechanical Ventilator 60 02/20/19 22:55 92 35 60 02/20/19 22:42 145/68 02/20/19 22:00 89 20 145/68 (93) 99 02/20/19 21:10 89 36 60 02/20/19 21:00 91 24 146/65 (92) 98 02/20/19 20:39 90 111/70 02/20/19 20:00 Mechanical Ventilator Mechanical Ventilator 02/20/19 20:00 87 02/20/19 20:00 97.8 87 30 135/68 (90) 99 02/20/19 20:00 60 02/20/19 19:49 80 30 100 Mechanical Ventilator 60 02/20/19 19:11 84 32 100 Mechanical Ventilator 60 02/20/19 19:11 84 32 60 02/20/19 19:11 100 Mechanical Ventilator 60 02/20/19 19:00 81 26 132/69 (90) 99 Intake and Output 02/20/19 02/21/19 19:00 07:00 Intake Total 1251.000 ml 1060.0 ml Output Total 2270 ml 2120 ml Balance -1019.000 ml -1060.0 ml IV Total 1115.000 ml 1060.0 ml Tube Feeding 86 ml 0 ml Other 50 ml Output Urine Total 2250 ml 1520 ml Stool Total 20 ml 200 ml Gastric Drainage Total 400 ml Laboratory Tests 02/21/19 07:30: White Blood Count 10.7, Red Blood Count 2.78L, Hemoglobin 7.8L, Hematocrit 24.1L , Mean Corpuscular Volume 87, Mean Corpuscular Hemoglobin 28.2, Mean Corpuscular Hemoglobin Concent 32.5, Red Cell Distribution Width 17.7H, Platelet Count 188, Mean Platelet Volume 5.8L, Neutrophils (%) (Auto) , Lymphocytes (%) (Auto) , Monocytes (%) (Auto) , Eosinophils (%) (Auto) , Basophils (%) (Auto) , Differential Total Cells Counted 100, Neutrophils % ( Manual) 90H, Lymphocytes % (Manual) 8L, Monocytes % (Manual) 2, Eosinophils % ( Manual) 0, Basophils % (Manual) 0, Band Neutrophils 0, Platelet Estimate Adequate, Platelet Morphology Normal, Red Blood Cell Morphology Normal, Prothrombin Time 12.0H, Prothromb Time International Ratio 1.1, Fibrinogen 472H , D-Dimer 0.58H, Sodium Level 135L, Potassium Level 4.3, Chloride Level 100, Carbon Dioxide Level 24, Anion Gap 11, Blood Urea Nitrogen 54H, Creatinine 2.4H , Estimat Glomerular Filtration Rate 27.8, Glucose Level 152H, Calcium Level 8.1L, Phosphorus Level 3.6, Magnesium Level 1.8, Total Bilirubin 0.7, Aspartate Amino Transf (AST/SGOT) 96H, Alanine Aminotransferase (ALT/SGPT) 83H, Alkaline Phosphatase 103, C-Reactive Protein, Quantitative 12.6H, Pro-B-Type Natriuretic Peptide 18127I, Total Protein 5.5L, Albumin 2.5L, Globulin 3.0, Albumin/ Globulin Ratio 0.8L 02/21/19 10:30: Fibrin Degradation Products, Quant [Pending] Height (Feet): 6 Height (Inches): 0.00 Weight (Pounds): 272 General Appearance: severe distress, other - intubated EENT: other - ETT Neck: normal alignment Cardiovascular: normal rate Respiratory/Chest: decreased breath sounds Abdomen: normal bowel sounds Edema: 2+ Arm (L), 2+ Arm (R), 2+ Leg (L), 2+ Leg (R), 2+ Pedal (L), 2+ Pedal ( R), 2+ Generalized Objective Current Medications Medications (Trade) Dose Ordered Sig/Marquis Route PRN Reason Start Time Stop Time Status Last Admin Dose Admin Acetaminophen (Tylenol) 650 mg Q4H PRN ORAL Mild Pain (Pain Scale 1-3) 02/07/19 11:15 03/08/19 17:29 02/07/19 23:01 Acetaminophen/ Butalbital/ Caffeine (Fioricet) 1 tab Q8H PRN ORAL For Headache 02/08/19 17:15 03/10/19 17:14 Albuterol/ Ipratropium (Albuterol/ Ipratropium) 3 ml Q4HRT HHN 02/20/19 03:00 02/25/19 02:59 02/21/19 15:13 Amlodipine Besylate (Norvasc) 10 mg DAILY NG 02/15/19 09:00 03/14/19 15:59 02/21/19 10:27 Artificial Tears (Lacri-Lube) 1 applic AC+HS BOTH EYES 02/18/19 06:30 03/20/19 06:29 02/21/19 18:31 Aspirin (Ecotrin) 81 mg DAILY ORAL 02/08/19 09:00 03/09/19 08:59 02/20/19 08:33 Atorvastatin Calcium (Lipitor) 10 mg QHS ORAL 02/17/19 21:00 03/10/19 20:59 02/20/19 20:38 Bisacodyl (Dulcolax) 5 mg DAILYPRN PRN ORAL Constipation 02/08/19 17:15 03/10/19 17:14 02/18/19 20:13 Chlorhexidine Gluconate (Jessy-Hex 2%) 1 applic DAILY@1999 TOPIC 02/13/19 20:00 03/15/19 19:59 02/20/19 19:48 Clonidine HCl (Catapres Tab) 0.1 mg EVERY 6 HOURS NG 02/20/19 12:00 03/19/19 13:59 02/21/19 18:33 Dextrose (Dextrose 50%) 25 ml Q30M PRN IV Hypoglycemia 02/20/19 06:45 03/22/19 06:44 Dextrose (Dextrose 50%) 50 ml Q30M PRN IV Hypoglycemia 02/20/19 06:45 03/22/19 06:44 02/20/19 08:49 Docusate Sodium (Colace) 100 mg TID GT 02/12/19 18:00 03/12/19 08:59 02/21/19 18:33 Enoxaparin Sodium (Lovenox) 40 mg Q24H SUBQ 02/07/19 21:00 03/08/19 20:59 02/19/19 20:40 Fentanyl Citrate 1000 mcg/Sodium Chloride 100 ml @ 0 mls/hr Q24H IV 02/21/19 13:00 02/28/19 12:59 02/21/19 12:44 Fluconazole/ Sodium Chloride 100 ml @ 100 mls/hr Q24H IV 02/20/19 18:00 02/27/19 17:59 02/20/19 18:03 Guaifenesin (Mucinex ER) 600 mg TWICE A DAY ORAL 02/07/19 18:00 03/09/19 08:59 02/21/19 18:33 Hydralazine HCl (Apresoline) 10 mg Q4H PRN IV bp over 165 syst 02/17/19 10:15 03/19/19 10:14 02/19/19 14:45 Hydralazine HCl (Apresoline) 100 mg Q8HR NG 02/19/19 22:00 03/21/19 21:59 02/21/19 15:53 Insulin Aspart (NovoLOG) EVERY 4 HOURS SUBQ 02/15/19 21:00 03/17/19 20:59 02/21/19 18:38 Insulin Detemir (Levemir) 10 units BID SUBQ 02/20/19 09:00 03/22/19 08:59 02/21/19 18:39 Isosorbide Dinitrate (Isordil) 20 mg Q6HR NG 02/15/19 12:00 03/15/19 12:59 02/21/19 18:34 Lansoprazole (Prevacid) 30 mg BID NG 02/12/19 18:00 03/14/19 17:59 02/21/19 18:34 Lorazepam (Ativan 2mg/ml 1ml) 2 mg Q2H PRN IV agitation/restlessness 02/19/19 22:00 02/26/19 21:44 02/21/19 08:00 Lorazepam (Ativan) 1 mg Q4H PRN ORAL For Anxiety 02/19/19 15:15 02/26/19 15:14 02/19/19 15:21 Methylprednisolone Sodium Succinate (Solu-MEDROL) 10 mg EVERY 12 HOURS IVP 02/19/19 21:00 03/12/19 20:59 02/21/19 10:27 Metolazone (Zaroxolyn) 10 mg DAILY NG 02/19/19 10:00 03/21/19 09:59 02/21/19 10:26 Metoprolol Tartrate (Lopressor) 100 mg Q12HR ORAL 02/07/19 21:00 03/08/19 20:59 02/21/19 10:28 Midazolam HCl (Versed 2mg/2ml vial) 1 mg Q2H PRN IVP Agitation 02/13/19 08:45 03/15/19 08:44 02/14/19 05:49 Neomycin/ Polymyxin/ Dexamethasone (Maxitrol Opth Oint) 1 applic BEDTIME BOTH EYES 02/18/19 21:00 03/20/19 20:59 02/20/19 20:38 Nitroglycerin (Ntg) 0.4 mg Q5M PRN SL Prn Chest Pain 02/07/19 11:00 03/08/19 17:29 02/08/19 07:42 Ondansetron HCl (Zofran) 4 mg Q6H PRN IVP Nausea & Vomiting 02/07/19 11:15 03/08/19 11:14 02/09/19 00:58 Patient Own Medication (Patient's Own Med) 1 ea BID ORAL 02/07/19 18:00 03/09/19 17:59 02/21/19 18:34 Patient Own Medication (Patient's Own Med) 1 ea Q48H ORAL 02/18/19 09:00 03/20/19 08:59 02/20/19 08:33 Patient Own Medication (Patient's Own Med) 2 ea DAILY ORAL 02/08/19 09:00 03/10/19 08:59 02/21/19 10:25 Piperacillin Sod/ Tazobactam Sod 3.375 gm/Sodium Chloride 110 ml @ 27.5 mls/hr EVERY 8 HOURS IVPB 02/20/19 14:00 02/25/19 13:59 02/21/19 15:53 Polyethylene Glycol (Miralax) 17 gm BEDTIME ORAL 02/08/19 21:00 03/10/19 20:59 02/19/19 20:39 Sennosides (Senokot) 8.6 mg DAILY ORAL 02/13/19 12:00 03/15/19 11:59 02/21/19 10:26 Trimethoprim/ Sulfamethoxazole 25 ml/Dextrose 575 ml @ 383.333 mls/hr [id number] BACTRIM IV 02/20/19 12:00 02/27/19 11:59 02/21/19 15:53 Vancomycin HCl (Vanco rx to dose) 1 ea DAILY PRN MISC . 02/10/19 19:45 03/12/19 19:44 Vancomycin HCl/ Dextrose 275 ml @ 183.333 mls/hr Q18H IVPB 02/21/19 03:00 02/26/19 02:59 02/21/19 03:06 Carlito Nichols MD Feb 21, 2019 18:57
--- NOTE | 2019-02-21 19:37 | NUR ---
HAND-OFF: Report given to TESSA Ewing.
--- NOTE | 2019-02-21 19:45 | NUR ---
NURSE NOTES: Received report from TESSA Pond. Responsive to verbal with eye contact. SR 80-90 on monitor. ETT 7.5/24, Vent setting AC24, TV550, Peep5 and FiO2 60%. Left NG tube intact and running with Nepro 15ml/hr. Rectal tube intact and draining. Simon Cath intact and running with scott color urine by gravity. Left femoral João cath intact and running Fentanyl 50mcg/hr. On bilateral soft wrist restraints noted. Skin intact and clean. Call light placed in easy reach. Will continue plan of care.
[2019-02-21] MEDS: Dyna-Hex 2% Top Sol 2oz TOPIC SCH (20:38)
[2019-02-21] MEDS: Enoxaparin 40mg Inj SUBQ SCH (21:00)
--- NOTE | 2019-02-21 21:35 | NUR ---
NURSE NOTES: Repositioned patient. Oral care given.
[2019-02-21] MEDS: Miralax 17gm pkt ORAL SCH (21:39)
[2019-02-21] MEDS: Maxitrol Opth Oint 3.5gm BOTH EYES SCH (22:02)
--- NOTE | 2019-02-21 22:53 | NUR ---
NURSE NOTES: Adjusted FiO2 60% to 40% by RT. Will continue plan of care.
--- NOTE | 2019-02-21 23:13 | General Progress Note ---
Assessment/Plan Status: unchanged Assessment/Plan: 58 y Male admitted to the hospital due to fever, shortness of breath and chest pain. # Multilobar pneumonia in patient with HIV- worse # Acute Hypoxemic respiratory failure - extubated - on BiPAP # ARDS - improved - Broad sp atbx. Will continue Zosyn, Vancomycin and Azithromycin - Bactrim for PCP coverage - Droplet precaution -DCed - Oxygen support - ID consult appreciated. - Patient s/p emergent bronchoscopy given florid ARDS - Extubated 02/19 to BiPAP - reintubated 02/20/19 -vent management per pulmonary # NSTEMI - EKG with bifascicular block RBB and LAFB, no ST changes. - Trend troponin x3 - ECHO completed with no WMA and preserved EF. Dr. Francois consulted. Consideration for outpatient cath vs possibly myocarditis due to underlying viral infection. No evidence of Takotsubo per TTE. - NGT prn - Pain control with morphine # HIV - Continue HARRT - VL is undetectable per patient report. 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 Objective Last 24 Hour Vital Signs Date Time Temp Pulse Resp B/P (MAP) Pulse Ox O2 Delivery O2 Flow Rate FiO2 02/21/19 23:01 76 24 100 Mechanical Ventilator 40 02/21/19 22:47 77 28 100 Mechanical Ventilator 40 02/21/19 22:46 77 28 40 60 02/21/19 22:00 85 20 133/61 (85) 100 02/21/19 21:39 87 143/81 02/21/19 21:38 143/62 02/21/19 21:30 87 19 143/62 (89) 99 02/21/19 21:00 87 20 138/62 (87) 99 02/21/19 20:33 82 24 50 60 02/21/19 20:30 83 23 133/61 (85) 100 02/21/19 20:00 Mechanical Ventilator 02/21/19 20:00 99.7 85 10 131/58 (82) 100 02/21/19 20:00 60 02/21/19 19:45 86 24 100 Mechanical Ventilator 50 02/21/19 19:30 88 25 131/60 (83) 100 02/21/19 19:25 86 25 50 60 02/21/19 19:25 86 25 100 Mechanical Ventilator 50 02/21/19 19:00 92 32 134/56 (82) 98 02/21/19 18:34 152/65 02/21/19 18:33 152/65 02/21/19 18:30 94 21 152/65 (94) 97 02/21/19 18:00 93 33 151/61 (91) 95 02/21/19 17:30 93 27 140/69 (92) 97 02/21/19 17:00 82 24 60 02/21/19 17:00 86 28 134/66 (88) 100 02/21/19 17:00 26 Mechanical Ventilator 60 02/21/19 16:00 60 02/21/19 16:00 92 02/21/19 16:00 99.5 92 25 141/71 (94) 99 02/21/19 16:00 Mechanical Ventilator 02/21/19 16:00 24 Mechanical Ventilator 60 02/21/19 15:53 156/77 02/21/19 15:14 110 36 100 Mechanical Ventilator 60 02/21/19 15:10 100 33 60 02/21/19 15:00 Mechanical Ventilator 60 02/21/19 15:00 100 34 100 Mechanical Ventilator 60 02/21/19 15:00 92 25 156/77 (103) 99 02/21/19 14:30 91 28 145/72 (96) 99 02/21/19 14:00 91 28 145/70 (95) 99 02/21/19 14:00 Mechanical Ventilator 60 02/21/19 13:30 95 27 147/70 (95) 99 02/21/19 13:04 Mechanical Ventilator 60 02/21/19 13:02 94 33 60 02/21/19 13:00 94 33 138/72 (94) 99 02/21/19 12:59 Mechanical Ventilator 60 02/21/19 12:54 Mechanical Ventilator 60 02/21/19 12:49 Mechanical Ventilator 60 02/21/19 12:44 35 Mechanical Ventilator 60 02/21/19 12:36 148/72 02/21/19 12:36 148/72 02/21/19 12:00 96 02/21/19 12:00 Mechanical Ventilator 02/21/19 12:00 99.9 97 34 148/72 (97) 99 02/21/19 12:00 60 02/21/19 11:00 110 38 60 02/21/19 11:00 104 24 139/68 (91) 99 02/21/19 10:28 109 145/65 02/21/19 10:27 108 145/65 02/21/19 10:20 109 30 100 Mechanical Ventilator 60 02/21/19 10:10 109 30 100 Mechanical Ventilator 60 02/21/19 10:00 108 27 145/65 (91) 100 02/21/19 09:22 107 30 60 02/21/19 09:00 105 26 141/64 (89) 100 02/21/19 08:00 60 02/21/19 08:00 Mechanical Ventilator 02/21/19 08:00 108 02/21/19 08:00 99.4 106 29 150/58 (88) 99 02/21/19 07:09 100 30 100 Mechanical Ventilator 60 02/21/19 07:05 100 Mechanical Ventilator 60 02/21/19 07:04 97 33 60 02/21/19 07:00 97 23 147/62 (90) 100 02/21/19 07:00 95 30 100 Mechanical Ventilator 60 02/21/19 06:00 102 23 153/65 (94) 100 02/21/19 05:57 154/65 02/21/19 05:57 154/65 02/21/19 05:57 154/65 02/21/19 05:30 105 35 60 02/21/19 05:00 102 31 154/65 (94) 100 02/21/19 04:00 60 02/21/19 04:00 97.6 100 25 145/74 (97) 98 02/21/19 04:00 100 02/21/19 04:00 Mechanical Ventilator Mechanical Ventilator 02/21/19 03:22 89 32 99 Mechanical Ventilator 60 02/21/19 03:13 98 36 60 02/21/19 03:12 97 34 98 Mechanical Ventilator 60 02/21/19 03:00 96 26 152/65 (94) 99 02/21/19 02:00 96 25 147/69 (95) 100 02/21/19 01:14 98 33 60 02/21/19 01:00 92 29 145/57 (86) 99 02/21/19 00:18 137/75 02/21/19 00:17 137/75 02/21/19 00:00 97.2 91 26 137/75 (95) 99 02/21/19 00:00 91 02/21/19 00:00 60 02/21/19 00:00 Mechanical Ventilator Mechanical Ventilator Intake and Output 02/20/19 02/21/19 19:00 07:00 Intake Total 1251.000 ml 1060.0 ml Output Total 2270 ml 2120 ml Balance -1019.000 ml -1060.0 ml IV Total 1115.000 ml 1060.0 ml Tube Feeding 86 ml 0 ml Other 50 ml Output Urine Total 2250 ml 1520 ml Stool Total 20 ml 200 ml Gastric Drainage Total 400 ml Laboratory Tests 02/21/19 07:30: White Blood Count 10.7, Red Blood Count 2.78L, Hemoglobin 7.8L, Hematocrit 24.1L , Mean Corpuscular Volume 87, Mean Corpuscular Hemoglobin 28.2, Mean Corpuscular Hemoglobin Concent 32.5, Red Cell Distribution Width 17.7H, Platelet Count 188, Mean Platelet Volume 5.8L, Neutrophils (%) (Auto) , Lymphocytes (%) (Auto) , Monocytes (%) (Auto) , Eosinophils (%) (Auto) , Basophils (%) (Auto) , Differential Total Cells Counted 100, Neutrophils % ( Manual) 90H, Lymphocytes % (Manual) 8L, Monocytes % (Manual) 2, Eosinophils % ( Manual) 0, Basophils % (Manual) 0, Band Neutrophils 0, Platelet Estimate Adequate, Platelet Morphology Normal, Red Blood Cell Morphology Normal, Prothrombin Time 12.0H, Prothromb Time International Ratio 1.1, Fibrinogen 472H , D-Dimer 0.58H, Sodium Level 135L, Potassium Level 4.3, Chloride Level 100, Carbon Dioxide Level 24, Anion Gap 11, Blood Urea Nitrogen 54H, Creatinine 2.4H , Estimat Glomerular Filtration Rate 27.8, Glucose Level 152H, Calcium Level 8.1L, Phosphorus Level 3.6, Magnesium Level 1.8, Total Bilirubin 0.7, Aspartate Amino Transf (AST/SGOT) 96H, Alanine Aminotransferase (ALT/SGPT) 83H, Alkaline Phosphatase 103, C-Reactive Protein, Quantitative 12.6H, Pro-B-Type Natriuretic Peptide 72694H, Total Protein 5.5L, Albumin 2.5L, Globulin 3.0, Albumin/ Globulin Ratio 0.8L 02/21/19 10:30: Fibrin Degradation Products, Quant [Pending] 02/21/19 19:50: Vancomycin Level Trough 17.9H Height (Feet): 6 Height (Inches): 0.00 Weight (Pounds): 272 Objective General Appearance: intubated, no agitation EENT: intubated Neck: non-tender, normal alignment Cardiovascular: normal peripheral pulses, normal rate Respiratory/Chest: chest wall non-tender, lungs clear Abdomen: normal bowel sounds, non tender Extremities: normal range of motion, non-tender Edema: trace edema 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
[2019-02-22] VITALS (54 sets, daily range): BP systolic 113–166; BP diastolic 50–90
--- NOTE | 2019-02-22 00:30 | NUR ---
NURSE NOTES: Repositioned patient. Oral care and ETT suction given. Fantanyl drip titrated to 100mcg/hr and ativan 2mg IVP was given for agitation. Will continue plan of care.
[2019-02-22] MEDS: LORazepam Inj 2mg/ml 1ml IV PRN ×4 (00:49→20:06)
[2019-02-22] MEDS: NovoLOG Insulin Flexpen SUBQ SCH ×6 (01:00→22:04)
--- NOTE | 2019-02-22 02:02 | NUR ---
NURSE NOTES: Oral care given. Repositioned patient.
--- NOTE | 2019-02-22 03:03 | NUR ---
NURSE NOTES: Fentanyl drip still running at 100mcg/hr. Light sedated. Eye opens to voice. Will continue plan of care.
[2019-02-22] MEDS: Albuterol/Ipratropium 3ml neb HHN SCH ×6 (03:14→22:47)
--- NOTE | 2019-02-22 04:05 | NUR ---
NURSE NOTES: Bed bath given. blood collected for morning labs.
[2019-02-22 05:19] LABS: HEMATOCRIT 20.6 % (42.0-52.0); MEAN CORPUSCULAR VOLUME 87 FL (80-99); PLATELET COUNT 150 K/UL (150-450); RED BLOOD COUNT 2.36 M/UL (4.70-6.10); RED CELL DISTRIBUTION WIDTH 17.6 % (11.6-14.8); WHITE BLOOD COUNT 7.2 K/UL (4.8-10.8)
[2019-02-22 05:27] LABS: HEMOGLOBIN 6.7 G/DL (14.2-18.0)
[2019-02-22] MEDS: HydrALAZINE 50mg tab NG SCH ×3 (05:42→21:32)
[2019-02-22 05:43] LABS: ALANINE AMINOTRANSFERASE 65 U/L (12-78); ALBUMIN 2.1 G/DL (3.4-5.0); ALBUMIN/GLOBULIN RATIO 0.7 (1.0-2.7); ALKALINE PHOSPHATASE 97 U/L (46-116); ANION GAP 10 mmol/L (5-15); ASPARTATE AMINO TRANSFERASE 55 U/L (15-37); BILIRUBIN,TOTAL 0.5 MG/DL (0.2-1.0); BLOOD UREA NITROGEN 55 mg/dL (7-18); CALCIUM 7.9 MG/DL (8.5-10.1); CARBON DIOXIDE 25 MMOL/L (21-32); CHLORIDE 104 MMOL/L (98-107); CREATININE 2.7 MG/DL (0.55-1.30); PHOSPHORUS 4.1 MG/DL (2.5-4.9); POTASSIUM 4.5 MMOL/L (3.5-5.1); SODIUM 139 MMOL/L (136-145)
[2019-02-22] MEDS: Zosyn 3.375gm q8h **Extended infusion IVPB SCH ×6 (05:43→21:33)
[2019-02-22] MEDS: Lacri-Lube Opth Oint 3.5gm BOTH EYES SCH ×4 (05:49→21:32)
--- NOTE | 2019-02-22 06:08 | NUR ---
NURSE NOTES: Informed Dr. Hernandez regarding pt's hgb 6.7. New order carried out.
--- NOTE | 2019-02-22 07:06 | NUR ---
RESPIRATORY NOTE: received pt orally intubated with ETT 7.5, placed 24cm at the lip, secured via anchor fast. no redness or skin tears visible around facial area. when sxn'd, pt has moderate amount red blood secretions and bilateral dim/rhonchi b/s upon auscultation. alarms are set and audible with ambu bag at bedside. will cont to monitor.
--- NOTE | 2019-02-22 07:18 | NUR ---
HAND-OFF: Report given to TESSA Arciniega. Endorsed plan of care.
--- NOTE | 2019-02-22 07:19 | NUR ---
NURSE NOTES: Received report from TESSA Ewing. Patient eyes closed at this time. Upon inspection, patient's lower sclera still swollen and red. Will cover eyes with saline soaked gauze to preserve moisture. Patient is sedated at this time with fentanyl running at 100mcg/hr (10mL/hr). Patient showing no sign of acute distress at this time. Will continue to monitor and titrate per protocol. Patient intubated with 7.5cm ETT with 24cm at the lip line and ventilator setting of AC 24, TV 550, FiO2 40%, and PEEP 5. Bilateral upper lung lobes inspiratory and expiratory rhonchi, lower lobes diminished and difficult to hear due to patient's abdominal distention. Patient tolerating setting with oxygen saturation 96% at this time. Patient blood pressure 128/56, HR 76, RR 28, Temp 98.6. Patient has an OGT that is patent and verified with auscultation at this time. Residual 50mL of feeding mixed with brown/black coffee ground gastric content. Tube feeding of Nepro running at 15mL/hr at this time. Low rate due to patient's consistent residual. Will continue to monitor residual and adjust feeding rate. Patient has anasarca with pitting edema on +3-4 on the lower extremities and pitting +2-3 on the upper extremities. Abdomen distention is non-pitting but tight. Petechiae noted on the under arms. Scrotum swollen and non-pitting. Simon in place for urine retention and to monitor kidney function. Urine straw yellow at this time. Patient has left femoral paulo catheter with pigtail running Fentanyl at 100mcg/hr (10mL/hr) at this time. 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 Patient continues to ooze serosanguineous fluid from Paulo catheter. Will continue to monitor and redress paulo catheter as needed. Patient has a left forearm 18G PIV that is patent, asymptomatic and running Zosyn at this time. Patient bilateral lower extremities elevated at this time with heels floated. Patient has a resolved stage one pressure ulcer of the right elbow and no other open wounds. Patient is at risk for skin breakdown and will be turned every 2 hours and as needed. Oral care and repositioning done at this time. Bed in low position with bed alarm on and call light in reach. Patient has a hemoglobin of 6.7 this morning. One PRBC has been ordered. Awaiting type and cross result and blood bank confirmation that the blood is ready. Will follow up. Addendum: 02/22/19 at 0828 by Suze Tang RN Patient has right nares NGT, not OGT. Patient has dark scott urine.
--- NOTE | 2019-02-22 07:41 | General Progress Note ---
Assessment/Plan Problem List: (1) ISH (acute kidney injury) ICD Codes: N17.9 - Acute kidney failure, unspecified SNOMED: 10974837 (2) Uncontrolled type 2 diabetes mellitus with chronic kidney disease ICD Codes: E11.22 - Type 2 diabetes mellitus with diabetic chronic kidney disease; E11.65 - Type 2 diabetes mellitus with hyperglycemia SNOMED: 85600460, 167811996, 120291394 (3) HIV disease ICD Codes: B20 - Human immunodeficiency virus [HIV] disease SNOMED: 06878228 (4) Respiratory distress ICD Codes: R06.03 - Acute respiratory distress SNOMED: 831843236 Status: unchanged Assessment/Plan: - continue Levemir 16 units bid - continue Novolog sliding scale resistant scale every 4 hours Subjective ROS Limited/Unobtainable: Yes Allergies: Coded Allergies: No Known Allergies (Unverified , 02/05/13) Subjective events noted Item Value Date Time Bedside Blood Glucose 132 mg/dl H 02/22/19 0548 Bedside Blood Glucose 195 mg/dl H 02/22/19 0100 Bedside Blood Glucose 200 mg/dl H 02/21/19 2219 Bedside Blood Glucose 215 mg/dl H 02/21/19 1839 Objective Last 24 Hour Vital Signs Date Time Temp Pulse Resp B/P (MAP) Pulse Ox O2 Delivery O2 Flow Rate FiO2 02/22/19 07:08 76 24 100 Mechanical Ventilator 40 02/22/19 07:02 73 27 40 60 02/22/19 07:01 74 25 97 Mechanical Ventilator 40 02/22/19 07:00 74 21 117/59 (78) 97 02/22/19 07:00 18 Mechanical Ventilator 40 02/22/19 06:30 74 22 117/55 (75) 97 02/22/19 06:00 18 Mechanical Ventilator 40 02/22/19 06:00 75 22 119/54 (75) 96 02/22/19 05:42 130/59 02/22/19 05:42 130/59 02/22/19 05:42 130/59 02/22/19 05:30 77 21 130/59 (82) 96 02/22/19 05:18 74 27 40 60 02/22/19 05:00 25 Mechanical Ventilator 40 02/22/19 05:00 74 26 113/56 (75) 100 02/22/19 04:30 77 24 119/53 (75) 100 02/22/19 04:00 98.5 78 18 125/63 (83) 99 02/22/19 04:00 83 02/22/19 04:00 22 Mechanical Ventilator 40 02/22/19 04:00 Mechanical Ventilator 02/22/19 04:00 40 02/22/19 03:30 79 24 125/63 (83) 98 02/22/19 03:23 78 24 100 Mechanical Ventilator 40 02/22/19 03:13 79 28 98 Mechanical Ventilator 40 02/22/19 03:11 79 28 40 60 02/22/19 03:00 23 Mechanical Ventilator 40 02/22/19 03:00 77 8 116/58 (77) 02/22/19 02:30 78 25 121/61 (81) 99 02/22/19 02:00 76 22 120/63 (82) 100 02/22/19 01:59 21 Mechanical Ventilator 40 02/22/19 01:58 28 Mechanical Ventilator 40 02/22/19 01:30 75 24 123/59 (80) 99 02/22/19 01:00 26 Mechanical Ventilator 40 02/22/19 01:00 77 24 123/59 (80) 97 02/22/19 00:55 79 24 40 60 02/22/19 00:30 86 30 138/69 (92) 98 02/22/19 00:00 Mechanical Ventilator 02/22/19 00:00 27 Mechanical Ventilator 40 02/22/19 00:00 97.6 87 34 135/57 (83) 94 02/21/19 23:47 148/64 02/21/19 23:47 148/64 02/21/19 23:30 84 25 148/64 (92) 92 02/21/19 23:01 76 24 100 Mechanical Ventilator 40 02/21/19 23:00 76 25 138/63 (88) 96 02/21/19 23:00 28 Mechanical Ventilator 60 02/21/19 22:50 25 Mechanical Ventilator 60 02/21/19 22:47 77 28 100 Mechanical Ventilator 40 02/21/19 22:46 77 28 40 60 02/21/19 22:40 27 Mechanical Ventilator 60 02/21/19 22:30 77 21 135/58 (83) 100 02/21/19 22:30 26 Mechanical Ventilator 60 02/21/19 22:20 26 Mechanical Ventilator 60 02/21/19 22:10 26 Mechanical Ventilator 60 02/21/19 22:00 27 Mechanical Ventilator 60 02/21/19 22:00 85 20 133/61 (85) 100 02/21/19 21:39 87 143/81 02/21/19 21:38 143/62 02/21/19 21:30 87 19 143/62 (89) 99 02/21/19 21:00 26 Mechanical Ventilator 60 02/21/19 21:00 87 20 138/62 (87) 99 02/21/19 20:33 82 24 50 60 02/21/19 20:30 83 23 133/61 (85) 100 02/21/19 20:00 Mechanical Ventilator 02/21/19 20:00 99.7 85 10 131/58 (82) 100 02/21/19 20:00 87 02/21/19 20:00 25 Mechanical Ventilator 60 02/21/19 20:00 60 02/21/19 19:45 86 24 100 Mechanical Ventilator 50 02/21/19 19:30 88 25 131/60 (83) 100 02/21/19 19:25 86 25 50 60 02/21/19 19:25 86 25 100 Mechanical Ventilator 50 02/21/19 19:00 92 32 134/56 (82) 98 02/21/19 18:34 152/65 02/21/19 18:33 152/65 02/21/19 18:30 94 21 152/65 (94) 97 02/21/19 18:00 93 33 151/61 (91) 95 02/21/19 17:30 93 27 140/69 (92) 97 02/21/19 17:00 82 24 60 02/21/19 17:00 86 28 134/66 (88) 100 02/21/19 17:00 26 Mechanical Ventilator 60 02/21/19 16:00 60 02/21/19 16:00 92 02/21/19 16:00 99.5 92 25 141/71 (94) 99 02/21/19 16:00 Mechanical Ventilator 02/21/19 16:00 24 Mechanical Ventilator 60 02/21/19 15:53 156/77 02/21/19 15:14 110 36 100 Mechanical Ventilator 60 02/21/19 15:10 100 33 60 02/21/19 15:00 Mechanical Ventilator 60 02/21/19 15:00 100 34 100 Mechanical Ventilator 60 02/21/19 15:00 92 25 156/77 (103) 99 02/21/19 14:30 91 28 145/72 (96) 99 02/21/19 14:00 91 28 145/70 (95) 99 02/21/19 14:00 Mechanical Ventilator 60 02/21/19 13:30 95 27 147/70 (95) 99 02/21/19 13:04 Mechanical Ventilator 60 02/21/19 13:02 94 33 60 02/21/19 13:00 94 33 138/72 (94) 99 02/21/19 12:59 Mechanical Ventilator 60 02/21/19 12:54 Mechanical Ventilator 60 02/21/19 12:49 Mechanical Ventilator 60 02/21/19 12:44 35 Mechanical Ventilator 60 02/21/19 12:36 148/72 02/21/19 12:36 148/72 02/21/19 12:00 96 02/21/19 12:00 Mechanical Ventilator 02/21/19 12:00 99.9 97 34 148/72 (97) 99 02/21/19 12:00 60 02/21/19 11:00 110 38 60 02/21/19 11:00 104 24 139/68 (91) 99 02/21/19 10:28 109 145/65 02/21/19 10:27 108 145/65 02/21/19 10:20 109 30 100 Mechanical Ventilator 60 02/21/19 10:10 109 30 100 Mechanical Ventilator 60 02/21/19 10:00 108 27 145/65 (91) 100 02/21/19 09:22 107 30 60 02/21/19 09:00 105 26 141/64 (89) 100 02/21/19 08:00 60 02/21/19 08:00 Mechanical Ventilator 02/21/19 08:00 108 02/21/19 08:00 99.4 106 29 150/58 (88) 99 Intake and Output 02/21/19 02/22/19 18:59 06:59 Intake Total 1561.093 ml 1270.300 ml Output Total 2025 ml 1200 ml Balance -463.907 ml 70.300 ml Free Water 160 ml IV Total 1226.093 ml 1090.300 ml Tube Feeding 135 ml 180 ml Other 40 ml Output Urine Total 2025 ml 1200 ml Laboratory Tests 02/21/19 10:30: Fibrin Degradation Products, Quant [Pending] 02/21/19 19:50: Vancomycin Level Trough 17.9H 02/22/19 04:36: White Blood Count 7.2, Red Blood Count 2.36L, Hemoglobin 6.7*L, Hematocrit 20.6L , Mean Corpuscular Volume 87, Mean Corpuscular Hemoglobin 28.3, Mean Corpuscular Hemoglobin Concent 32.5, Red Cell Distribution Width 17.6H, Platelet Count 150, Mean Platelet Volume 6.4L, Neutrophils (%) (Auto) , Lymphocytes (%) (Auto) , Monocytes (%) (Auto) , Eosinophils (%) (Auto) , Basophils (%) (Auto) , Neutrophils % (Manual) [Pending], Lymphocytes % (Manual) [Pending], Platelet Estimate [Pending], Platelet Morphology [Pending], Sodium Level 139, Potassium Level 4.5, Chloride Level 104, Carbon Dioxide Level 25, Anion Gap 10, Blood Urea Nitrogen 55H, Creatinine 2.7H, Estimat Glomerular Filtration Rate 24.3, Glucose Level 151H, Uric Acid 3.6, Calcium Level 7.9L, Phosphorus Level 4.1, Magnesium Level 1.8, Total Bilirubin 0.5, Aspartate Amino Transf (AST/SGOT) 55H, Alanine Aminotransferase (ALT/SGPT) 65, Alkaline Phosphatase 97, C-Reactive Protein, Quantitative 13.9H, Pro-B-Type Natriuretic Peptide 80543N, Total Protein 5.3L, Albumin 2.1L, Globulin 3.2, Albumin/ Globulin Ratio 0.7L Height (Feet): 6 Height (Inches): 0.00 Weight (Pounds): 273 General Appearance: no apparent distress Neck: normal alignment Cardiovascular: normal rate Respiratory/Chest: lungs clear Pelvis: normal external exam Objective Current Medications Medications (Trade) Dose Ordered Sig/Marquis Route PRN Reason Start Time Stop Time Status Last Admin Dose Admin Acetaminophen (Tylenol) 650 mg Q4H PRN ORAL Mild Pain (Pain Scale 1-3) 02/07/19 11:15 03/08/19 17:29 02/07/19 23:01 Acetaminophen/ Butalbital/ Caffeine (Fioricet) 1 tab Q8H PRN ORAL For Headache 02/08/19 17:15 03/10/19 17:14 Albuterol/ Ipratropium (Albuterol/ Ipratropium) 3 ml Q4HRT HHN 02/20/19 03:00 02/25/19 02:59 02/22/19 07:01 Amlodipine Besylate (Norvasc) 10 mg DAILY NG 02/15/19 09:00 03/14/19 15:59 02/21/19 10:27 Artificial Tears (Lacri-Lube) 1 applic AC+HS BOTH EYES 02/18/19 06:30 03/20/19 06:29 02/22/19 05:49 Aspirin (Ecotrin) 81 mg DAILY ORAL 02/08/19 09:00 03/09/19 08:59 02/20/19 08:33 Atorvastatin Calcium (Lipitor) 10 mg QHS ORAL 02/17/19 21:00 03/10/19 20:59 02/21/19 21:38 Bisacodyl (Dulcolax) 5 mg DAILYPRN PRN ORAL Constipation 02/08/19 17:15 03/10/19 17:14 02/18/19 20:13 Chlorhexidine Gluconate (Jessy-Hex 2%) 1 applic DAILY@2000 TOPIC 02/13/19 20:00 03/15/19 19:59 02/21/19 20:38 Clonidine HCl (Catapres Tab) 0.1 mg EVERY 6 HOURS NG 02/20/19 12:00 03/19/19 13:59 02/22/19 05:42 Dextrose (Dextrose 50%) 25 ml Q30M PRN IV Hypoglycemia 02/20/19 06:45 03/22/19 06:44 Dextrose (Dextrose 50%) 50 ml Q30M PRN IV Hypoglycemia 02/20/19 06:45 03/22/19 06:44 02/20/19 08:49 Docusate Sodium (Colace) 100 mg TID GT 02/12/19 18:00 03/12/19 08:59 02/21/19 18:33 Enoxaparin Sodium (Lovenox) 40 mg Q24H SUBQ 02/07/19 21:00 03/08/19 20:59 02/19/19 20:40 Fentanyl Citrate 1000 mcg/Sodium Chloride 100 ml @ 0 mls/hr Q24H IV 02/21/19 13:00 02/28/19 12:59 02/22/19 01:59 Fluconazole/ Sodium Chloride 100 ml @ 100 mls/hr Q24H IV 02/20/19 18:00 02/27/19 17:59 02/21/19 19:01 Guaifenesin (Mucinex ER) 600 mg TWICE A DAY ORAL 02/07/19 18:00 03/09/19 08:59 02/21/19 18:33 Hydralazine HCl (Apresoline) 10 mg Q4H PRN IV bp over 165 syst 02/17/19 10:15 03/19/19 10:14 02/19/19 14:45 Hydralazine HCl (Apresoline) 100 mg Q8HR NG 02/19/19 22:00 03/21/19 21:59 02/22/19 05:42 Insulin Aspart (NovoLOG) EVERY 4 HOURS SUBQ 02/15/19 21:00 03/17/19 20:59 02/22/19 05:48 Insulin Detemir (Levemir) 16 units BID SUBQ 02/22/19 09:00 03/22/19 08:59 Isosorbide Dinitrate (Isordil) 20 mg Q6HR NG 02/15/19 12:00 03/15/19 12:59 02/22/19 05:42 Lansoprazole (Prevacid) 30 mg BID NG 02/12/19 18:00 03/14/19 17:59 02/21/19 18:34 Lorazepam (Ativan 2mg/ml 1ml) 2 mg Q2H PRN IV agitation/restlessness 02/19/19 22:00 02/26/19 21:44 02/22/19 00:49 Lorazepam (Ativan) 1 mg Q4H PRN ORAL For Anxiety 02/19/19 15:15 02/26/19 15:14 02/19/19 15:21 Methylprednisolone Sodium Succinate (Solu-MEDROL) 10 mg EVERY 12 HOURS IVP 02/19/19 21:00 03/12/19 20:59 02/21/19 21:39 Metolazone (Zaroxolyn) 10 mg DAILY NG 02/19/19 10:00 03/21/19 09:59 02/21/19 10:26 Metoprolol Tartrate (Lopressor) 100 mg Q12HR ORAL 02/07/19 21:00 03/08/19 20:59 02/21/19 21:39 Midazolam HCl (Versed 2mg/2ml vial) 1 mg Q2H PRN IVP Agitation 02/13/19 08:45 03/15/19 08:44 02/14/19 05:49 Neomycin/ Polymyxin/ Dexamethasone (Maxitrol Opth Oint) 1 applic BEDTIME BOTH EYES 02/18/19 21:00 03/20/19 20:59 02/21/19 22:02 Nitroglycerin (Ntg) 0.4 mg Q5M PRN SL Prn Chest Pain 02/07/19 11:00 03/08/19 17:29 02/08/19 07:42 Ondansetron HCl (Zofran) 4 mg Q6H PRN IVP Nausea & Vomiting 02/07/19 11:15 03/08/19 11:14 02/09/19 00:58 Patient Own Medication (Patient's Own Med) 1 ea BID ORAL 02/07/19 18:00 03/09/19 17:59 02/21/19 18:34 Patient Own Medication (Patient's Own Med) 1 ea Q48H ORAL 02/18/19 09:00 03/20/19 08:59 02/20/19 08:33 Patient Own Medication (Patient's Own Med) 2 ea DAILY ORAL 02/08/19 09:00 03/10/19 08:59 02/21/19 10:25 Piperacillin Sod/ Tazobactam Sod 3.375 gm/Sodium Chloride 110 ml @ 27.5 mls/hr EVERY 8 HOURS IVPB 02/20/19 14:00 02/25/19 13:59 02/22/19 05:43 Polyethylene Glycol (Miralax) 17 gm BEDTIME ORAL 02/08/19 21:00 03/10/19 20:59 02/21/19 21:39 Sennosides (Senokot) 8.6 mg DAILY ORAL 02/13/19 12:00 03/15/19 11:59 02/21/19 10:26 Trimethoprim/ Sulfamethoxazole 25 ml/Dextrose 575 ml @ 383.333 mls/hr [id number] BACTRIM IV 02/20/19 12:00 02/27/19 11:59 02/21/19 23:47 Vancomycin HCl (Vanco rx to dose) 1 ea DAILY PRN MISC . 02/10/19 19:45 03/12/19 19:44 Carlito Nichols MD Feb 22, 2019 07:41
--- NOTE | 2019-02-22 07:50 | NUR ---
NURSE NOTES: Spoke with Dr Hernandez at this time. Notified him that today the only evidence of bleeding is his Ritesh catheter that is oozing serosanguineous fluid and the coffee ground stomach contents. He ordered a repeat CBC post transfusion for [address] order now.
--- NOTE | 2019-02-22 08:08 | NUR ---
NURSE NOTES: Noted that Dr Ricketts's note from 02/21 said that the patient's tube feeding was held. Called and left message for Dr Ricketts asking if he wants the patient to be NPO due to 50mL of residual on 15mL/hr of tube feeding with coffee ground stomach content this morning. Feeding held at this time awaiting orders from Dr Ricketts. Notified him that there is no obvious signs of active bleeding this morning.
--- NOTE | 2019-02-22 08:27 | NUR ---
NURSE NOTES: Dr Ricketts reported that the tube feeding should be continued despite coffee ground residual of 50mL. Will resume tube feeding at this time.
[2019-02-22] MEDS: TRIMETHOPRIM IV SCH ×3 (08:47→23:39)
[2019-02-22] MEDS: Sennosides 8.6mg tab ORAL SCH (08:47)
[2019-02-22] MEDS: SULFAMETHOXAZOLE IV SCH ×3 (08:47→23:39)
[2019-02-22] MEDS: D5W IV SCH ×3 (08:47→23:39)
--- NOTE | 2019-02-22 08:47 | Diagnostic Imaging Report ---
EXAM: XR Chest, 1 View CLINICAL HISTORY: INFECT TECHNIQUE: Frontal view of the chest. COMPARISON: 02/20/19. FINDINGS: The tip of the endotracheal tube is appropriately positioned, projecting between the clavicular heads. The sidehole of the enteric tube projects within the stomach. Extensive bilateral consolidation is again noted. Favor multilobar pneumonia. Heart size is borderline, but likely exaggerated by portable technique. No pneumothorax. Bony degenerative changes. IMPRESSION: Extensive airspace consolidation, similar to prior. Favor multilobar pneumonia. Appropriately positioned tubes.
[2019-02-22] MEDS: Aspirin EC 81mg tab ORAL SCH (08:48)
[2019-02-22] MEDS: guaiFENesin ER 600mg tab ORAL SCH ×2 (08:48→17:56)
[2019-02-22] MEDS: Docusate 100mg/10ml Liq GT SCH ×3 (08:48→17:55)
[2019-02-22] MEDS: Solu-MEDROL 40mg Inj IVP SCH ×2 (08:49→21:31)
--- NOTE | 2019-02-22 08:50 | General Progress Note ---
Assessment/Plan Status: unchanged Assessment/Plan: 1. History of HIV. 2. Hypertension. 3. Vertigo. 4. History of headaches. 5. History of diabetes. 6. Respiratory failure 7. Dysphagia 8. ileus NGTF reintubated ppi fu H&H prn blood transfusion Subjective ROS Limited/Unobtainable: No Allergies: Coded Allergies: No Known Allergies (Unverified , 02/05/13) Objective Last 24 Hour Vital Signs Date Time Temp Pulse Resp B/P (MAP) Pulse Ox O2 Delivery O2 Flow Rate FiO2 02/22/19 08:38 81 27 40 60 02/22/19 08:00 Mechanical Ventilator Mechanical Ventilator 02/22/19 08:00 98.5 76 28 128/56 (80) 96 02/22/19 08:00 40 02/22/19 07:08 76 24 100 Mechanical Ventilator 40 02/22/19 07:02 73 27 40 60 02/22/19 07:01 74 25 97 Mechanical Ventilator 40 02/22/19 07:00 74 21 117/59 (78) 97 02/22/19 07:00 18 Mechanical Ventilator 40 02/22/19 06:30 74 22 117/55 (75) 97 02/22/19 06:00 18 Mechanical Ventilator 40 02/22/19 06:00 75 22 119/54 (75) 96 02/22/19 05:42 130/59 02/22/19 05:42 130/59 02/22/19 05:42 130/59 02/22/19 05:30 77 21 130/59 (82) 96 02/22/19 05:18 74 27 40 60 02/22/19 05:00 25 Mechanical Ventilator 40 02/22/19 05:00 74 26 113/56 (75) 100 02/22/19 04:30 77 24 119/53 (75) 100 02/22/19 04:00 98.5 78 18 125/63 (83) 99 02/22/19 04:00 83 02/22/19 04:00 22 Mechanical Ventilator 40 02/22/19 04:00 Mechanical Ventilator 02/22/19 04:00 40 02/22/19 03:30 79 24 125/63 (83) 98 02/22/19 03:23 78 24 100 Mechanical Ventilator 40 02/22/19 03:13 79 28 98 Mechanical Ventilator 40 02/22/19 03:11 79 28 40 60 7/4/19 03:00 23 Mechanical Ventilator 40 02/22/19 03:00 77 8 116/58 (77) 02/22/19 02:30 78 25 121/61 (81) 99 02/22/19 02:00 76 22 120/63 (82) 100 02/22/19 01:59 21 Mechanical Ventilator 40 02/22/19 01:58 28 Mechanical Ventilator 40 02/22/19 01:30 75 24 123/59 (80) 99 02/22/19 01:00 26 Mechanical Ventilator 40 02/22/19 01:00 77 24 123/59 (80) 97 02/22/19 00:55 79 24 40 60 02/22/19 00:30 86 30 138/69 (92) 98 02/22/19 00:00 Mechanical Ventilator 02/22/19 00:00 27 Mechanical Ventilator 40 02/22/19 00:00 97.6 87 34 135/57 (83) 94 02/21/19 23:47 148/64 02/21/19 23:47 148/64 02/21/19 23:30 84 25 148/64 (92) 92 02/21/19 23:01 76 24 100 Mechanical Ventilator 40 02/21/19 23:00 76 25 138/63 (88) 96 02/21/19 23:00 28 Mechanical Ventilator 60 02/21/19 22:50 25 Mechanical Ventilator 60 02/21/19 22:47 77 28 100 Mechanical Ventilator 40 02/21/19 22:46 77 28 40 60 02/21/19 22:40 27 Mechanical Ventilator 60 02/21/19 22:30 77 21 135/58 (83) 100 02/21/19 22:30 26 Mechanical Ventilator 60 02/21/19 22:20 26 Mechanical Ventilator 60 02/21/19 22:10 26 Mechanical Ventilator 60 02/21/19 22:00 27 Mechanical Ventilator 60 02/21/19 22:00 85 20 133/61 (85) 100 02/21/19 21:39 87 143/81 02/21/19 21:38 143/62 02/21/19 21:30 87 19 143/62 (89) 99 02/21/19 21:00 26 Mechanical Ventilator 60 02/21/19 21:00 87 20 138/62 (87) 99 02/21/19 20:33 82 24 50 60 02/21/19 20:30 83 23 133/61 (85) 100 02/21/19 20:00 Mechanical Ventilator 02/21/19 20:00 99.7 85 10 131/58 (82) 100 02/21/19 20:00 87 02/21/19 20:00 25 Mechanical Ventilator 60 02/21/19 20:00 60 02/21/19 19:45 86 24 100 Mechanical Ventilator 50 02/21/19 19:30 88 25 131/60 (83) 100 02/21/19 19:25 86 25 50 60 02/21/19 19:25 86 25 100 Mechanical Ventilator 50 02/21/19 19:00 92 32 134/56 (82) 98 02/21/19 18:34 152/65 02/21/19 18:33 152/65 02/21/19 18:30 94 21 152/65 (94) 97 02/21/19 18:00 93 33 151/61 (91) 95 02/21/19 17:30 93 27 140/69 (92) 97 02/21/19 17:00 82 24 60 02/21/19 17:00 86 28 134/66 (88) 100 02/21/19 17:00 26 Mechanical Ventilator 60 02/21/19 16:00 60 02/21/19 16:00 92 02/21/19 16:00 99.5 92 25 141/71 (94) 99 02/21/19 16:00 Mechanical Ventilator 02/21/19 16:00 24 Mechanical Ventilator 60 02/21/19 15:53 156/77 02/21/19 15:14 110 36 100 Mechanical Ventilator 60 02/21/19 15:10 100 33 60 02/21/19 15:00 Mechanical Ventilator 60 02/21/19 15:00 100 34 100 Mechanical Ventilator 60 02/21/19 15:00 92 25 156/77 (103) 99 02/21/19 14:30 91 28 145/72 (96) 99 02/21/19 14:00 91 28 145/70 (95) 99 02/21/19 14:00 Mechanical Ventilator 60 02/21/19 13:30 95 27 147/70 (95) 99 02/21/19 13:04 Mechanical Ventilator 60 02/21/19 13:02 94 33 60 02/21/19 13:00 94 33 138/72 (94) 99 02/21/19 12:59 Mechanical Ventilator 60 02/21/19 12:54 Mechanical Ventilator 60 02/21/19 12:49 Mechanical Ventilator 60 02/21/19 12:44 35 Mechanical Ventilator 60 02/21/19 12:36 148/72 02/21/19 12:36 148/72 02/21/19 12:00 96 02/21/19 12:00 Mechanical Ventilator 02/21/19 12:00 99.9 97 34 148/72 (97) 99 02/21/19 12:00 60 02/21/19 11:00 110 38 60 02/21/19 11:00 104 24 139/68 (91) 99 02/21/19 10:28 109 145/65 02/21/19 10:27 108 145/65 02/21/19 10:20 109 30 100 Mechanical Ventilator 60 02/21/19 10:10 109 30 100 Mechanical Ventilator 60 02/21/19 10:00 108 27 145/65 (91) 100 02/21/19 09:22 107 30 60 02/21/19 09:00 105 26 141/64 (89) 100 Intake and Output 02/21/19 02/22/19 18:59 06:59 Intake Total 1561.093 ml 1270.300 ml Output Total 2025 ml 1200 ml Balance -463.907 ml 70.300 ml Free Water 160 ml IV Total 1226.093 ml 1090.300 ml Tube Feeding 135 ml 180 ml Other 40 ml Output Urine Total 2025 ml 1200 ml Laboratory Tests 02/21/19 10:30: Fibrin Degradation Products, Quant [Pending] 02/21/19 19:50: Vancomycin Level Trough 17.9H 02/22/19 04:36: White Blood Count 7.2, Red Blood Count 2.36L, Hemoglobin 6.7*L, Hematocrit 20.6L , Mean Corpuscular Volume 87, Mean Corpuscular Hemoglobin 28.3, Mean Corpuscular Hemoglobin Concent 32.5, Red Cell Distribution Width 17.6H, Platelet Count 150, Mean Platelet Volume 6.4L, Neutrophils (%) (Auto) , Lymphocytes (%) (Auto) , Monocytes (%) (Auto) , Eosinophils (%) (Auto) , Basophils (%) (Auto) , Differential Total Cells Counted 100, Neutrophils % ( Manual) 92H, Lymphocytes % (Manual) 4L, Monocytes % (Manual) 4, Eosinophils % ( Manual) 0, Basophils % (Manual) 0, Band Neutrophils 0, Platelet Estimate Adequate, Platelet Morphology Normal, Hypochromasia 4+, Anisocytosis 1+, Spherocytes 3+, Sodium Level 139, Potassium Level 4.5, Chloride Level 104, Carbon Dioxide Level 25, Anion Gap 10, Blood Urea Nitrogen 55H, Creatinine 2.7H , Estimat Glomerular Filtration Rate 24.3, Glucose Level 151H, Uric Acid 3.6, Calcium Level 7.9L, Phosphorus Level 4.1, Magnesium Level 1.8, Total Bilirubin 0.5, Aspartate Amino Transf (AST/SGOT) 55H, Alanine Aminotransferase (ALT/SGPT) 65, Alkaline Phosphatase 97, C-Reactive Protein, Quantitative 13.9H, Pro-B-Type Natriuretic Peptide 48192T, Total Protein 5.3L, Albumin 2.1L, Globulin 3.2, Albumin/Globulin Ratio 0.7L Height (Feet): 6 Height (Inches): 0.00 Weight (Pounds): 273 General Appearance: no apparent distress EENT: normal ENT inspection Neck: supple Cardiovascular: normal rate Respiratory/Chest: decreased breath sounds Abdomen: normal bowel sounds, non tender, soft Extremities: non-tender Kg Ricketts MD Feb 22, 2019 08:50
[2019-02-22] MEDS: ETRAVIRINE 200 MG ORAL SCH (08:53)
[2019-02-22] MEDS: RALTEGRAVIR 400 MG ORAL SCH ×2 (08:53→17:35)
[2019-02-22] MEDS: TENOFOVIR DISOPROXIL FUMARATE 300 MG ORAL SCH (08:53)
--- NOTE | 2019-02-22 09:00 | NUR ---
NURSE NOTES: Patient restless with RASS of +1 at this time. Fentanyl increased to 150mcg/hr at this time. Will continue to monitor and titrate per protocol.
[2019-02-22] MEDS: Levemir Flexpen SUBQ SCH ×2 (09:19→17:57)
--- NOTE | 2019-02-22 09:23 | NUR ---
NURSE NOTES: Patient given Ativan 2mg and has a JEAN CLAUDE of -4 at this time. Fentanyl reduced to 125mcg/hr at this time. Will continue to monitor and titrate per protocol.
--- NOTE | 2019-02-22 10:15 | NUR ---
NURSE NOTES: Dr Mcdonald rounding on the patient at this time. He has been notified regarding the blood coming from the ETT and the coffee ground gastric content with 200mL residual this morning. 50mL out this morning and 150mL out just now. Dr Mcdonald ordered to stop aspirin and Lovenox (neither have been given this morning), NPO except medications, NGT hooked to low intermittent suction, start IV Protonix, stop PO Prevacid, and order one more PRBC for a total of 2 PRBC. All orders entered by doctor except PRBC and low intermittent suction. An order for a second PRBC and other nursing order for NGT to low intermittent suction will be ordered at this time.
[2019-02-22] MEDS ORDERED: Pantoprazole Inj IVP SCH (10:30)
--- NOTE | 2019-02-22 10:42 | NUR ---
NURSE NOTES: PRBC Transfusion started. Blood verified with TESSA Montanez. Patient blood pressure 121/59, temp 97.6, SpO2 95%, and HR 73. Transfusion initiated at rate of 75mL/hr.
--- NOTE | 2019-02-22 10:55 | NUR ---
NURSE NOTES: TESSA Whitt witnessed my waste of fentanyl drip. Less than 1mL remained
--- NOTE | 2019-02-22 10:57 | NUR ---
NURSE NOTES: Blood transfusion has been running for 15 min. Patient temp 98.1, BP 166/79, HR 87, and RR 30. Patient is restless at this time. Will continue to monitor. No transfusion reaction evident at this time. rate increased to 100mL/hr.
--- NOTE | 2019-02-22 11:00 | NUR ---
NURSE NOTES: Patient is restless now that the Ativan is wearing off. Patient RASS score of +1. Fentanyl drip increased to 150mcg/hr. Will continue to monitor and titrate fentanyl per protocol.
--- NOTE | 2019-02-22 11:40 | Nephrology Progress Note ---
Assessment/Plan Problem List: (1) ISH (acute kidney injury) Assessment: Cr lowering (2) HIV (human immunodeficiency virus infection) (3) NSTEMI (non-ST elevated myocardial infarction) Assessment: troponin decreasing (4) Hypoxia (5) Anemia (6) Diabetes Assessment Acute Renal failure- Cr leveling- Urine out put is good Acidosis improved Acute respiratory failure- Require intubation and Mechanical Ventilation- Anemia- Elevated troponin / TX HTN DM HIV Antibody + Plan Hold feeding IV protonix NGt suction transfusiosn start IV fluid BP med adjustment ? recheck 2D echo?? UA and urine studies Avoid Nephrotoxics as possible Monitor renal parameters keep BP and BS in check Per orders No HD at this time Kidney RADHA noted adjust BP meds add Isordil Subjective ROS Limited/Unobtainable: Yes Objective Objective Last 24 Hour Vital Signs Date Time Temp Pulse Resp B/P (MAP) Pulse Ox O2 Delivery O2 Flow Rate FiO2 02/22/19 11:00 29 Non-Rebreather 40 02/22/19 10:51 29 Mechanical Ventilator 40 02/22/19 10:43 73 27 99 Mechanical Ventilator 40 02/22/19 10:42 73 28 40 02/22/19 10:33 73 24 96 Mechanical Ventilator 40 02/22/19 09:23 25 Mechanical Ventilator 40 02/22/19 09:00 28 Mechanical Ventilator 40 02/22/19 08:48 96 141/62 02/22/19 08:48 96 141/62 02/22/19 08:38 81 27 40 60 02/22/19 08:00 Mechanical Ventilator Mechanical Ventilator 02/22/19 08:00 98.5 76 28 128/56 (80) 96 02/22/19 08:00 40 02/22/19 08:00 28 Mechanical Ventilator 40 02/22/19 08:00 80 02/22/19 07:08 76 24 100 Mechanical Ventilator 40 02/22/19 07:02 73 27 40 60 02/22/19 07:01 74 25 97 Mechanical Ventilator 40 02/22/19 07:00 74 21 117/59 (78) 97 02/22/19 07:00 18 Mechanical Ventilator 40 02/22/19 06:30 74 22 117/55 (75) 97 02/22/19 06:00 18 Mechanical Ventilator 40 02/22/19 06:00 75 22 119/54 (75) 96 02/22/19 05:42 130/59 02/22/19 05:42 130/59 02/22/19 05:42 130/59 02/22/19 05:30 77 21 130/59 (82) 96 02/22/19 05:18 74 27 40 60 02/22/19 05:00 25 Mechanical Ventilator 40 02/22/19 05:00 74 26 113/56 (75) 100 02/22/19 04:30 77 24 119/53 (75) 100 02/22/19 04:00 98.5 78 18 125/63 (83) 99 02/22/19 04:00 83 02/22/19 04:00 22 Mechanical Ventilator 40 02/22/19 04:00 Mechanical Ventilator 02/22/19 04:00 40 02/22/19 03:30 79 24 125/63 (83) 98 02/22/19 03:23 78 24 100 Mechanical Ventilator 40 02/22/19 03:13 79 28 98 Mechanical Ventilator 40 02/22/19 03:11 79 28 40 60 02/22/19 03:00 23 Mechanical Ventilator 40 02/22/19 03:00 77 8 116/58 (77) 02/22/19 02:30 78 25 121/61 (81) 99 02/22/19 02:00 76 22 120/63 (82) 100 02/22/19 01:59 21 Mechanical Ventilator 40 02/22/19 01:58 28 Mechanical Ventilator 40 02/22/19 01:30 75 24 123/59 (80) 99 02/22/19 01:00 26 Mechanical Ventilator 40 02/22/19 01:00 77 24 123/59 (80) 97 02/22/19 00:55 79 24 40 60 02/22/19 00:30 86 30 138/69 (92) 98 02/22/19 00:00 Mechanical Ventilator 02/22/19 00:00 27 Mechanical Ventilator 40 02/22/19 00:00 97.6 87 34 135/57 (83) 94 02/21/19 23:47 148/64 02/21/19 23:47 148/64 02/21/19 23:30 84 25 148/64 (92) 92 02/21/19 23:01 76 24 100 Mechanical Ventilator 40 02/21/19 23:00 76 25 138/63 (88) 96 02/21/19 23:00 28 Mechanical Ventilator 60 02/21/19 22:50 25 Mechanical Ventilator 60 02/21/19 22:47 77 28 100 Mechanical Ventilator 40 02/21/19 22:46 77 28 40 60 02/21/19 22:40 27 Mechanical Ventilator 60 02/21/19 22:30 77 21 135/58 (83) 100 02/21/19 22:30 26 Mechanical Ventilator 60 02/21/19 22:20 26 Mechanical Ventilator 60 02/21/19 22:10 26 Mechanical Ventilator 60 02/21/19 22:00 27 Mechanical Ventilator 60 02/21/19 22:00 85 20 133/61 (85) 100 02/21/19 21:39 87 143/81 02/21/19 21:38 143/62 02/21/19 21:30 87 19 143/62 (89) 99 02/21/19 21:00 26 Mechanical Ventilator 60 02/21/19 21:00 87 20 138/62 (87) 99 02/21/19 20:33 82 24 50 60 02/21/19 20:30 83 23 133/61 (85) 100 02/21/19 20:00 Mechanical Ventilator 02/21/19 20:00 99.7 85 10 131/58 (82) 100 02/21/19 20:00 87 02/21/19 20:00 25 Mechanical Ventilator 60 02/21/19 20:00 60 02/21/19 19:45 86 24 100 Mechanical Ventilator 50 02/21/19 19:30 88 25 131/60 (83) 100 02/21/19 19:25 86 25 50 60 02/21/19 19:25 86 25 100 Mechanical Ventilator 50 02/21/19 19:00 92 32 134/56 (82) 98 02/21/19 18:34 152/65 02/21/19 18:33 152/65 02/21/19 18:30 94 21 152/65 (94) 97 02/21/19 18:00 93 33 151/61 (91) 95 02/21/19 17:30 93 27 140/69 (92) 97 02/21/19 17:00 82 24 60 02/21/19 17:00 86 28 134/66 (88) 100 02/21/19 17:00 26 Mechanical Ventilator 60 02/21/19 16:00 60 02/21/19 16:00 92 02/21/19 16:00 99.5 92 25 141/71 (94) 99 02/21/19 16:00 Mechanical Ventilator 02/21/19 16:00 24 Mechanical Ventilator 60 02/21/19 15:53 156/77 02/21/19 15:14 110 36 100 Mechanical Ventilator 60 02/21/19 15:10 100 33 60 02/21/19 15:00 Mechanical Ventilator 60 02/21/19 15:00 100 34 100 Mechanical Ventilator 60 02/21/19 15:00 92 25 156/77 (103) 99 02/21/19 14:30 91 28 145/72 (96) 99 02/21/19 14:00 91 28 145/70 (95) 99 02/21/19 14:00 Mechanical Ventilator 60 02/21/19 13:30 95 27 147/70 (95) 99 02/21/19 13:04 Mechanical Ventilator 60 02/21/19 13:02 94 33 60 02/21/19 13:00 94 33 138/72 (94) 99 02/21/19 12:59 Mechanical Ventilator 60 02/21/19 12:54 Mechanical Ventilator 60 02/21/19 12:49 Mechanical Ventilator 60 02/21/19 12:44 35 Mechanical Ventilator 60 02/21/19 12:36 148/72 02/21/19 12:36 148/72 02/21/19 12:00 96 02/21/19 12:00 Mechanical Ventilator 02/21/19 12:00 99.9 97 34 148/72 (97) 99 02/21/19 12:00 60 Intake and Output 02/21/19 02/22/19 19:00 07:00 Intake Total 1576.093 ml 1280.300 ml Output Total 1950 ml 1200 ml Balance -373.907 ml 80.300 ml Free Water 160 ml IV Total 1226.093 ml 1100.300 ml Tube Feeding 150 ml 180 ml Other 40 ml Output Urine Total 1950 ml 1200 ml Laboratory Tests 02/21/19 19:50: Vancomycin Level Trough 17.9H 02/22/19 04:36: White Blood Count 7.2, Red Blood Count 2.36L, Hemoglobin 6.7*L, Hematocrit 20.6L , Mean Corpuscular Volume 87, Mean Corpuscular Hemoglobin 28.3, Mean Corpuscular Hemoglobin Concent 32.5, Red Cell Distribution Width 17.6H, Platelet Count 150, Mean Platelet Volume 6.4L, Neutrophils (%) (Auto) , Lymphocytes (%) (Auto) , Monocytes (%) (Auto) , Eosinophils (%) (Auto) , Basophils (%) (Auto) , Differential Total Cells Counted 100, Neutrophils % ( Manual) 92H, Lymphocytes % (Manual) 4L, Monocytes % (Manual) 4, Eosinophils % ( Manual) 0, Basophils % (Manual) 0, Band Neutrophils 0, Platelet Estimate Adequate, Platelet Morphology Normal, Hypochromasia 4+, Anisocytosis 1+, Spherocytes 3+, Sodium Level 139, Potassium Level 4.5, Chloride Level 104, Carbon Dioxide Level 25, Anion Gap 10, Blood Urea Nitrogen 55H, Creatinine 2.7H , Estimat Glomerular Filtration Rate 24.3, Glucose Level 151H, Uric Acid 3.6, Calcium Level 7.9L, Phosphorus Level 4.1, Magnesium Level 1.8, Total Bilirubin 0.5, Aspartate Amino Transf (AST/SGOT) 55H, Alanine Aminotransferase (ALT/SGPT) 65, Alkaline Phosphatase 97, C-Reactive Protein, Quantitative 13.9H, Pro-B-Type Natriuretic Peptide 40264D, Total Protein 5.3L, Albumin 2.1L, Globulin 3.2, Albumin/Globulin Ratio 0.7L Height (Feet): 6 Height (Inches): 0.00 Weight (Pounds): 273 General Appearance: no apparent distress Cardiovascular: normal rate Respiratory/Chest: decreased breath sounds Abdomen: distended Mike Mcdonald MD Feb 22, 2019 11:40
--- NOTE | 2019-02-22 12:00 | NUR ---
NURSE NOTES: Patient eyes closed at this time. Upon inspection, patient's lower sclera still swollen and red. Will cover eyes with saline soaked gauze to preserve moisture. Patient is sedated at this time with fentanyl running at 150mcg/hr (15mL/hr). Patient showing no sign of acute distress at this time. Will continue to monitor and titrate per protocol. Patient intubated with 7.5cm ETT with 24cm at the lip line and ventilator setting of AC 24, TV 550, FiO2 40%, and PEEP 5. Bilateral upper lung lobes inspiratory and expiratory rhonchi, lower lobes diminished and difficult to hear due to patient's abdominal distention. Patient tolerating setting with oxygen saturation 94% at this time. Patient blood pressure 142/76, HR 73, RR 24. Patient NPO and NGT on low intermittent suction but there is no output at this time. When residual checked at this time, patient had 30mL residual. Will continue to monitor residual and notify MD. Patient has anasarca with pitting edema on +3-4 on the lower extremities and pitting +2-3 on the upper extremities. Abdomen distention is non-pitting but tight. Petechiae noted on the under arms. Scrotum swollen and non-pitting. Simon in place for urine retention and to monitor kidney function. Urine dark scott at this time. Patient has a rectal tube that is patent with stool in the tube but none in the bag. Will irrigate when bed bath given. Left femoral Ritesh catheter with pigtail running blood transfusion at this time. Dressing intact at this time. Will continue to monitor and redress Ritesh catheter as needed. Patient has a left forearm 18G PIV that is patent, asymptomatic and running Fentanyl at 150mcg/hr (15mL/hr) at this time. Patient bilateral lower extremities elevated at this time with heels floated. Oral care and repositioning done at this time. Bed in low position with bed alarm on and call light in reach. First PRBC finishing up at this time. Will hand second PRBC when possible.
--- NOTE | 2019-02-22 12:40 | NUR ---
NURSE NOTES: Left message for Dr Ricketts regarding the patient's high residual and the orders placed by Dr Mcdonald. Awaiting call back.
--- NOTE | 2019-02-22 12:50 | Surgery Progress Note ---
Surgery Progress Note Subjective Procedure Performed left femoral temporary Hemodialysis catheter insertion Additional Comments no acute events. intubated on vent responsive to painful stimulus Objective Last 24 Hour Vital Signs Date Time Temp Pulse Resp B/P (MAP) Pulse Ox O2 Delivery O2 Flow Rate FiO2 02/22/19 12:40 71 28 40 02/22/19 12:00 98.1 74 22 136/64 (88) 96 02/22/19 12:00 Mechanical Ventilator Mechanical Ventilator 02/22/19 12:00 21 Mechanical Ventilator 40 02/22/19 12:00 75 02/22/19 12:00 40 02/22/19 11:45 75 23 136/61 (86) 96 02/22/19 11:30 77 21 138/63 (88) 96 02/22/19 11:15 79 22 138/63 (88) 94 02/22/19 11:00 98.1 84 23 166/79 (108) 93 02/22/19 11:00 29 Non-Rebreather 40 02/22/19 10:51 29 Mechanical Ventilator 40 02/22/19 10:50 24 Mechanical Ventilator 40 02/22/19 10:45 97.6 73 23 121/59 (79) 97 02/22/19 10:43 73 27 99 Mechanical Ventilator 40 02/22/19 10:42 73 28 40 02/22/19 10:33 73 24 96 Mechanical Ventilator 40 02/22/19 10:30 73 23 121/59 (79) 97 02/22/19 10:00 24 Mechanical Ventilator 40 02/22/19 10:00 76 23 114/56 (75) 96 02/22/19 09:30 82 23 113/59 (77) 99 02/22/19 09:23 25 Mechanical Ventilator 40 02/22/19 09:00 91 24 135/64 (87) 88 02/22/19 09:00 28 Mechanical Ventilator 40 02/22/19 08:48 96 141/62 02/22/19 08:48 96 141/62 02/22/19 08:38 81 27 40 60 02/22/19 08:30 85 23 141/62 (88) 97 02/22/19 08:00 Mechanical Ventilator Mechanical Ventilator 02/22/19 08:00 98.5 76 28 128/56 (80) 96 02/22/19 08:00 40 02/22/19 08:00 28 Mechanical Ventilator 40 02/22/19 08:00 80 02/22/19 07:08 76 24 100 Mechanical Ventilator 40 02/22/19 07:02 73 27 40 60 02/22/19 07:01 74 25 97 Mechanical Ventilator 40 02/22/19 07:00 74 21 117/59 (78) 97 02/22/19 07:00 18 Mechanical Ventilator 40 02/22/19 06:30 74 22 117/55 (75) 97 02/22/19 06:00 18 Mechanical Ventilator 40 02/22/19 06:00 75 22 119/54 (75) 96 02/22/19 05:42 130/59 02/22/19 05:42 130/59 02/22/19 05:42 130/59 02/22/19 05:30 77 21 130/59 (82) 96 02/22/19 05:18 74 27 40 60 02/22/19 05:00 25 Mechanical Ventilator 40 02/22/19 05:00 74 26 113/56 (75) 100 02/22/19 04:30 77 24 119/53 (75) 100 02/22/19 04:00 98.5 78 18 125/63 (83) 99 02/22/19 04:00 83 02/22/19 04:00 22 Mechanical Ventilator 40 02/22/19 04:00 Mechanical Ventilator 02/22/19 04:00 40 02/22/19 03:30 79 24 125/63 (83) 98 02/22/19 03:23 78 24 100 Mechanical Ventilator 40 02/22/19 03:13 79 28 98 Mechanical Ventilator 40 02/22/19 03:11 79 28 40 60 02/22/19 03:00 23 Mechanical Ventilator 40 02/22/19 03:00 77 8 116/58 (77) 02/22/19 02:30 78 25 121/61 (81) 99 02/22/19 02:00 76 22 120/63 (82) 100 02/22/19 01:59 21 Mechanical Ventilator 40 02/22/19 01:58 28 Mechanical Ventilator 40 02/22/19 01:30 75 24 123/59 (80) 99 02/22/19 01:00 26 Mechanical Ventilator 40 02/22/19 01:00 77 24 123/59 (80) 97 02/22/19 00:55 79 24 40 60 02/22/19 00:30 86 30 138/69 (92) 98 02/22/19 00:00 Mechanical Ventilator 02/22/19 00:00 27 Mechanical Ventilator 40 02/22/19 00:00 97.6 87 34 135/57 (83) 94 02/21/19 23:47 148/64 02/21/19 23:47 148/64 02/21/19 23:30 84 25 148/64 (92) 92 02/21/19 23:01 76 24 100 Mechanical Ventilator 40 02/21/19 23:00 76 25 138/63 (88) 96 02/21/19 23:00 28 Mechanical Ventilator 60 02/21/19 22:50 25 Mechanical Ventilator 60 02/21/19 22:47 77 28 100 Mechanical Ventilator 40 02/21/19 22:46 77 28 40 60 02/21/19 22:40 27 Mechanical Ventilator 60 02/21/19 22:30 77 21 135/58 (83) 100 02/21/19 22:30 26 Mechanical Ventilator 60 02/21/19 22:20 26 Mechanical Ventilator 60 02/21/19 22:10 26 Mechanical Ventilator 60 02/21/19 22:00 27 Mechanical Ventilator 60 02/21/19 22:00 85 20 133/61 (85) 100 02/21/19 21:39 87 143/81 02/21/19 21:38 143/62 02/21/19 21:30 87 19 143/62 (89) 99 02/21/19 21:00 26 Mechanical Ventilator 60 02/21/19 21:00 87 20 138/62 (87) 99 02/21/19 20:33 82 24 50 60 02/21/19 20:30 83 23 133/61 (85) 100 02/21/19 20:00 Mechanical Ventilator 02/21/19 20:00 99.7 85 10 131/58 (82) 100 02/21/19 20:00 87 02/21/19 20:00 25 Mechanical Ventilator 60 02/21/19 20:00 60 02/21/19 19:45 86 24 100 Mechanical Ventilator 50 02/21/19 19:30 88 25 131/60 (83) 100 02/21/19 19:25 86 25 50 60 02/21/19 19:25 86 25 100 Mechanical Ventilator 50 02/21/19 19:00 92 32 134/56 (82) 98 02/21/19 18:34 152/65 02/21/19 18:33 152/65 02/21/19 18:30 94 21 152/65 (94) 97 02/21/19 18:00 93 33 151/61 (91) 95 02/21/19 17:30 93 27 140/69 (92) 97 02/21/19 17:00 82 24 60 02/21/19 17:00 86 28 134/66 (88) 100 02/21/19 17:00 26 Mechanical Ventilator 60 02/21/19 16:00 60 02/21/19 16:00 92 02/21/19 16:00 99.5 92 25 141/71 (94) 99 02/21/19 16:00 Mechanical Ventilator 02/21/19 16:00 24 Mechanical Ventilator 60 02/21/19 15:53 156/77 02/21/19 15:14 110 36 100 Mechanical Ventilator 60 02/21/19 15:10 100 33 60 02/21/19 15:00 Mechanical Ventilator 60 02/21/19 15:00 100 34 100 Mechanical Ventilator 60 02/21/19 15:00 92 25 156/77 (103) 99 02/21/19 14:30 91 28 145/72 (96) 99 02/21/19 14:00 91 28 145/70 (95) 99 02/21/19 14:00 Mechanical Ventilator 60 02/21/19 13:30 95 27 147/70 (95) 99 02/21/19 13:04 Mechanical Ventilator 60 02/21/19 13:02 94 33 60 02/21/19 13:00 94 33 138/72 (94) 99 02/21/19 12:59 Mechanical Ventilator 60 02/21/19 12:54 Mechanical Ventilator 60 I&O Intake and Output 02/21/19 02/22/19 19:00 07:00 Intake Total 1576.093 ml 1280.300 ml Output Total 1950 ml 1200 ml Balance -373.907 ml 80.300 ml Free Water 160 ml IV Total 1226.093 ml 1100.300 ml Tube Feeding 150 ml 180 ml Other 40 ml Output Urine Total 1950 ml 1200 ml Dressing: saturated Wound: clean Cardiovascular: RSR Respiratory: decreased breath sounds, other Abdomen: soft, present bowel sounds, non-distended Extremities: edema, no cyanosis Laboratory Tests Test 02/21/19 19:50 7/4/19 04:36 Vancomycin Level Trough 17.9 ug/mL (5.0-12.0) H White Blood Count 7.2 K/UL (4.8-10.8) Red Blood Count 2.36 M/UL (4.70-6.10) L Hemoglobin 6.7 G/DL (14.2-18.0) *L Hematocrit 20.6 % (42.0-52.0) L Mean Corpuscular Volume 87 FL (80-99) Mean Corpuscular Hemoglobin 28.3 PG (27.0-31.0) Mean Corpuscular Hemoglobin Concent 32.5 G/DL (32.0-36.0) Red Cell Distribution Width 17.6 % (11.6-14.8) H Platelet Count 150 K/UL (150-450) Mean Platelet Volume 6.4 FL (6.5-10.1) L Neutrophils (%) (Auto) % (45.0-75.0) Lymphocytes (%) (Auto) % (20.0-45.0) Monocytes (%) (Auto) % (1.0-10.0) Eosinophils (%) (Auto) % (0.0-3.0) Basophils (%) (Auto) % (0.0-2.0) Differential Total Cells Counted 100 Neutrophils % (Manual) 92 % (45-75) H Lymphocytes % (Manual) 4 % (20-45) L Monocytes % (Manual) 4 % (1-10) Eosinophils % (Manual) 0 % (0-3) Basophils % (Manual) 0 % (0-2) Band Neutrophils 0 % (0-8) Platelet Estimate Adequate Platelet Morphology Normal Hypochromasia 4+ Anisocytosis 1+ Spherocytes 3+ Sodium Level 139 MMOL/L (136-145) Potassium Level 4.5 MMOL/L (3.5-5.1) Chloride Level 104 MMOL/L (98-107) Carbon Dioxide Level 25 MMOL/L (21-32) Anion Gap 10 mmol/L (5-15) Blood Urea Nitrogen 55 mg/dL (7-18) H Creatinine 2.7 MG/DL (0.55-1.30) H Estimat Glomerular Filtration Rate 24.3 mL/min (>60) Glucose Level 151 MG/DL (74-106) H Uric Acid 3.6 MG/DL (2.6-7.2) Calcium Level 7.9 MG/DL (8.5-10.1) L Phosphorus Level 4.1 MG/DL (2.5-4.9) Magnesium Level 1.8 MG/DL (1.8-2.4) Total Bilirubin 0.5 MG/DL (0.2-1.0) Aspartate Amino Transf (AST/SGOT) 55 U/L (15-37) H Alanine Aminotransferase (ALT/SGPT) 65 U/L (12-78) Alkaline Phosphatase 97 U/L (46-116) C-Reactive Protein, Quantitative 13.9 mg/dL (0.00-0.90) H Pro-B-Type Natriuretic Peptide 76078 pg/mL (0-125) H Total Protein 5.3 G/DL (6.4-8.2) L Albumin 2.1 G/DL (3.4-5.0) L Globulin 3.2 g/dL Albumin/Globulin Ratio 0.7 (1.0-2.7) L Plan Problems: (1) Hypoxia Assessment & Plan: Extensive bilateral upper lobe infiltrates likely inflammatory/infectious. Correlate clinically. Tuberculosis is not excludable. Bilateral pleural effusions. Endotracheal tube and nasogastric tube in good position Atherosclerotic vascular disease (2) Respiratory distress Assessment & Plan: intubated on vent support (3) Sepsis Assessment & Plan: Sepsis with tachycardia, leukocytosis, abnormal labs, respiratory distress on vent support via ET tube Cont IV abx CXR noted appreciate ICU team care abnormal lft's US noted will likely remove line soon now that improving will cont to follow with recs trend labs Rx as written Moiz Costa Feb 22, 2019 12:50
[2019-02-22] MEDS: D5 1/2NS 1,000 ML IV SCH (12:52)
--- NOTE | 2019-02-22 13:24 | General Progress Note ---
Assessment/Plan Status: unchanged Assessment/Plan: 58 y Male admitted to the hospital due to fever, shortness of breath and chest pain. # Multilobar pneumonia in patient with HIV- worse # Acute Hypoxemic respiratory failure - extubated - on BiPAP # ARDS - improved - Broad sp atbx. Will continue Zosyn, Vancomycin and Azithromycin - Bactrim for PCP coverage - Droplet precaution -DCed - Oxygen support - ID consult appreciated. - Patient s/p emergent bronchoscopy given florid ARDS - Extubated 02/19 to BiPAP - reintubated 02/20/19 -vent management per pulmonary #Acute blood loss anemia -poss GI Source -Tube feedings stopped -pending PRBC x 2 -Protonix IV -CTM # NSTEMI - EKG with bifascicular block RBB and LAFB, no ST changes. - Trend troponin x3 - ECHO completed with no WMA and preserved EF. Dr. Francois consulted. Consideration for outpatient cath vs possibly myocarditis due to underlying viral infection. No evidence of Takotsubo per TTE. - NGT prn - Pain control with morphine # HIV - Continue HARRT - VL is undetectable per patient report. 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 with bedside EDITOR MAP Subjective Date patient seen: Feb 22, 2019 ROS Limited/Unobtainable: Yes Allergies: Coded Allergies: No Known Allergies (Unverified , 02/05/13) Subjective Hb trending down, 2 units PRBC ordered, coffee ground emesis noted in NGT, feedings stopped, protonix IV started, NPO, bleeding noted in ET tube. Objective Last 24 Hour Vital Signs Date Time Temp Pulse Resp B/P (MAP) Pulse Ox O2 Delivery O2 Flow Rate FiO2 02/22/19 12:52 140/72 02/22/19 12:52 140/72 02/22/19 12:40 71 28 40 02/22/19 12:00 98.1 74 22 136/64 (88) 96 02/22/19 12:00 Mechanical Ventilator Mechanical Ventilator 02/22/19 12:00 21 Mechanical Ventilator 40 02/22/19 12:00 75 02/22/19 12:00 40 02/22/19 11:45 75 23 136/61 (86) 96 02/22/19 11:30 77 21 138/63 (88) 96 02/22/19 11:15 79 22 138/63 (88) 94 02/22/19 11:00 98.1 84 23 166/79 (108) 93 02/22/19 11:00 29 Non-Rebreather 40 02/22/19 10:51 29 Mechanical Ventilator 40 02/22/19 10:50 24 Mechanical Ventilator 40 02/22/19 10:45 97.6 73 23 121/59 (79) 97 02/22/19 10:43 73 27 99 Mechanical Ventilator 40 02/22/19 10:42 73 28 40 02/22/19 10:33 73 24 96 Mechanical Ventilator 40 02/22/19 10:30 73 23 121/59 (79) 97 02/22/19 10:00 24 Mechanical Ventilator 40 02/22/19 10:00 76 23 114/56 (75) 96 02/22/19 09:30 82 23 113/59 (77) 99 02/22/19 09:23 25 Mechanical Ventilator 40 02/22/19 09:00 91 24 135/64 (87) 88 02/22/19 09:00 28 Mechanical Ventilator 40 02/22/19 08:48 96 141/62 02/22/19 08:48 96 141/62 02/22/19 08:38 81 27 40 60 02/22/19 08:30 85 23 141/62 (88) 97 02/22/19 08:00 Mechanical Ventilator Mechanical Ventilator 02/22/19 08:00 98.5 76 28 128/56 (80) 96 02/22/19 08:00 40 02/22/19 08:00 28 Mechanical Ventilator 40 02/22/19 08:00 80 02/22/19 07:08 76 24 100 Mechanical Ventilator 40 02/22/19 07:02 73 27 40 60 02/22/19 07:01 74 25 97 Mechanical Ventilator 40 02/22/19 07:00 74 21 117/59 (78) 97 02/22/19 07:00 18 Mechanical Ventilator 40 02/22/19 06:30 74 22 117/55 (75) 97 02/22/19 06:00 18 Mechanical Ventilator 40 02/22/19 06:00 75 22 119/54 (75) 96 02/22/19 05:42 130/59 02/22/19 05:42 130/59 02/22/19 05:42 130/59 02/22/19 05:30 77 21 130/59 (82) 96 02/22/19 05:18 74 27 40 60 02/22/19 05:00 25 Mechanical Ventilator 40 02/22/19 05:00 74 26 113/56 (75) 100 02/22/19 04:30 77 24 119/53 (75) 100 02/22/19 04:00 98.5 78 18 125/63 (83) 99 02/22/19 04:00 83 02/22/19 04:00 22 Mechanical Ventilator 40 02/22/19 04:00 Mechanical Ventilator 02/22/19 04:00 40 02/22/19 03:30 79 24 125/63 (83) 98 02/22/19 03:23 78 24 100 Mechanical Ventilator 40 02/22/19 03:13 79 28 98 Mechanical Ventilator 40 02/22/19 03:11 79 28 40 60 02/22/19 03:00 23 Mechanical Ventilator 40 02/22/19 03:00 77 8 116/58 (77) 02/22/19 02:30 78 25 121/61 (81) 99 02/22/19 02:00 76 22 120/63 (82) 100 02/22/19 01:59 21 Mechanical Ventilator 40 02/22/19 01:58 28 Mechanical Ventilator 40 02/22/19 01:30 75 24 123/59 (80) 99 02/22/19 01:00 26 Mechanical Ventilator 40 02/22/19 01:00 77 24 123/59 (80) 97 02/22/19 00:55 79 24 40 60 02/22/19 00:30 86 30 138/69 (92) 98 02/22/19 00:00 Mechanical Ventilator 02/22/19 00:00 27 Mechanical Ventilator 40 02/22/19 00:00 97.6 87 34 135/57 (83) 94 02/21/19 23:47 148/64 02/21/19 23:47 148/64 02/21/19 23:30 84 25 148/64 (92) 92 02/21/19 23:01 76 24 100 Mechanical Ventilator 40 02/21/19 23:00 76 25 138/63 (88) 96 02/21/19 23:00 28 Mechanical Ventilator 60 02/21/19 22:50 25 Mechanical Ventilator 60 02/21/19 22:47 77 28 100 Mechanical Ventilator 40 02/21/19 22:46 77 28 40 60 02/21/19 22:40 27 Mechanical Ventilator 60 02/21/19 22:30 77 21 135/58 (83) 100 02/21/19 22:30 26 Mechanical Ventilator 60 02/21/19 22:20 26 Mechanical Ventilator 60 02/21/19 22:10 26 Mechanical Ventilator 60 02/21/19 22:00 27 Mechanical Ventilator 60 02/21/19 22:00 85 20 133/61 (85) 100 02/21/19 21:39 87 143/81 02/21/19 21:38 143/62 02/21/19 21:30 87 19 143/62 (89) 99 02/21/19 21:00 26 Mechanical Ventilator 60 02/21/19 21:00 87 20 138/62 (87) 99 02/21/19 20:33 82 24 50 60 02/21/19 20:30 83 23 133/61 (85) 100 02/21/19 20:00 Mechanical Ventilator 02/21/19 20:00 99.7 85 10 131/58 (82) 100 02/21/19 20:00 87 02/21/19 20:00 25 Mechanical Ventilator 60 02/21/19 20:00 60 02/21/19 19:45 86 24 100 Mechanical Ventilator 50 02/21/19 19:30 88 25 131/60 (83) 100 02/21/19 19:25 86 25 50 60 02/21/19 19:25 86 25 100 Mechanical Ventilator 50 02/21/19 19:00 92 32 134/56 (82) 98 02/21/19 18:34 152/65 02/21/19 18:33 152/65 02/21/19 18:30 94 21 152/65 (94) 97 02/21/19 18:00 93 33 151/61 (91) 95 02/21/19 17:30 93 27 140/69 (92) 97 02/21/19 17:00 82 24 60 02/21/19 17:00 86 28 134/66 (88) 100 02/21/19 17:00 26 Mechanical Ventilator 60 02/21/19 16:00 60 02/21/19 16:00 92 02/21/19 16:00 99.5 92 25 141/71 (94) 99 02/21/19 16:00 Mechanical Ventilator 02/21/19 16:00 24 Mechanical Ventilator 60 02/21/19 15:53 156/77 02/21/19 15:14 110 36 100 Mechanical Ventilator 60 02/21/19 15:10 100 33 60 02/21/19 15:00 Mechanical Ventilator 60 02/21/19 15:00 100 34 100 Mechanical Ventilator 60 02/21/19 15:00 92 25 156/77 (103) 99 02/21/19 14:30 91 28 145/72 (96) 99 02/21/19 14:00 91 28 145/70 (95) 99 02/21/19 14:00 Mechanical Ventilator 60 02/21/19 13:30 95 27 147/70 (95) 99 Intake and Output 02/21/19 02/22/19 19:00 07:00 Intake Total 1576.093 ml 1280.300 ml Output Total 1950 ml 1200 ml Balance -373.907 ml 80.300 ml Free Water 160 ml IV Total 1226.093 ml 1100.300 ml Tube Feeding 150 ml 180 ml Other 40 ml Output Urine Total 1950 ml 1200 ml Laboratory Tests 02/21/19 19:50: Vancomycin Level Trough 17.9H 02/22/19 04:36: White Blood Count 7.2, Red Blood Count 2.36L, Hemoglobin 6.7*L, Hematocrit 20.6L , Mean Corpuscular Volume 87, Mean Corpuscular Hemoglobin 28.3, Mean Corpuscular Hemoglobin Concent 32.5, Red Cell Distribution Width 17.6H, Platelet Count 150, Mean Platelet Volume 6.4L, Neutrophils (%) (Auto) , Lymphocytes (%) (Auto) , Monocytes (%) (Auto) , Eosinophils (%) (Auto) , Basophils (%) (Auto) , Differential Total Cells Counted 100, Neutrophils % ( Manual) 92H, Lymphocytes % (Manual) 4L, Monocytes % (Manual) 4, Eosinophils % ( Manual) 0, Basophils % (Manual) 0, Band Neutrophils 0, Platelet Estimate Adequate, Platelet Morphology Normal, Hypochromasia 4+, Anisocytosis 1+, Spherocytes 3+, Sodium Level 139, Potassium Level 4.5, Chloride Level 104, Carbon Dioxide Level 25, Anion Gap 10, Blood Urea Nitrogen 55H, Creatinine 2.7H , Estimat Glomerular Filtration Rate 24.3, Glucose Level 151H, Uric Acid 3.6, Calcium Level 7.9L, Phosphorus Level 4.1, Magnesium Level 1.8, Total Bilirubin 0.5, Aspartate Amino Transf (AST/SGOT) 55H, Alanine Aminotransferase (ALT/SGPT) 65, Alkaline Phosphatase 97, C-Reactive Protein, Quantitative 13.9H, Pro-B-Type Natriuretic Peptide 58046J, Total Protein 5.3L, Albumin 2.1L, Globulin 3.2, Albumin/Globulin Ratio 0.7L Height (Feet): 6 Height (Inches): 0.00 Weight (Pounds): 273 Objective General Appearance: intubated, no agitation EENT: intubated Neck: non-tender, normal alignment Cardiovascular: normal peripheral pulses, normal rate Respiratory/Chest: chest wall non-tender, lungs clear Abdomen: normal bowel sounds, non tender Extremities: normal range of motion, non-tender Edema: trace edema Neurologic: clinical provider trainer II-XII grossly normal Sonja Douglas MD Feb 22, 2019 13:24
--- NOTE | 2019-02-22 13:30 | NUR ---
NURSE NOTES: First PRBC complete. No sign of transfusion reaction. BP 131/73, HR 71, temp 97.4.
--- NOTE | 2019-02-22 13:42 | NUR ---
NURSE NOTES: Second PRBC started. Temp 97.4, BP 131/73 and HR 71.
--- NOTE | 2019-02-22 13:57 | NUR ---
NURSE NOTES: It has been 15min since blood transfusion started. Temp 98.1, BP 139/64, HR 73, RR 24. NO sign of transfusion reaction.
--- NOTE | 2019-02-22 14:00 | NUR ---
NURSE NOTES: Unable to administer Zosyn at this time. Patient has two lines. The pigtail on the Ritesh catheter is transfusing blood and the left forearm 18G is running Fentanyl drip at 15mL/hr. Patient is a hard stick. Will administer Zosyn when blood transfusion complete.
--- NOTE | 2019-02-22 14:09 | Cardiac Electrophysiology PN ---
Assessment/Plan Assessment/Plan 1. Non-ST elevation myocardial infarction with peak troponin of more than 10, down to 3.[address]-T wave abnormalities. Continue Lipitor, Imdur and metoprolol 100 mg b.i.d. DC Aspirin Hold off on Cardiac catheterization for now 2. Hypertension. Continue metoprolol 100 mg bid, Imdur 30 mg daily and hydralazine 100 q 8 hr 3. Respiratory failure due to Multilobar Pneumonia. Extubated 02/19/19. Reintubated 02/20/19 4. Hyperlipidemia. On Lipitor. 5. Human immunodeficiency virus. On anti-retroviral therapy with undetectable viral load. 6. ARF Cr 3.5. 7. Bleeding from ETT and NG tube. Getting PRBC. DC Aspirin and LOvenox DW RN Subjective Subjective In ICU on the vent and fentanyl drip. Large amount of blood from ETT suction as NG suction. Getting PRBC 2 units Objective Last 24 Hour Vital Signs Date Time Temp Pulse Resp B/P (MAP) Pulse Ox O2 Delivery O2 Flow Rate FiO2 02/22/19 12:52 140/72 02/22/19 12:52 140/72 02/22/19 12:40 71 28 40 02/22/19 12:00 98.1 74 22 136/64 (88) 96 02/22/19 12:00 Mechanical Ventilator Mechanical Ventilator 02/22/19 12:00 21 Mechanical Ventilator 40 02/22/19 12:00 75 02/22/19 12:00 40 02/22/19 11:45 75 23 136/61 (86) 96 02/22/19 11:30 77 21 138/63 (88) 96 02/22/19 11:15 79 22 138/63 (88) 94 02/22/19 11:00 98.1 84 23 166/79 (108) 93 02/22/19 11:00 29 Non-Rebreather 40 02/22/19 10:51 29 Mechanical Ventilator 40 02/22/19 10:50 24 Mechanical Ventilator 40 02/22/19 10:45 97.6 73 23 121/59 (79) 97 02/22/19 10:43 73 27 99 Mechanical Ventilator 40 02/22/19 10:42 73 28 40 02/22/19 10:33 73 24 96 Mechanical Ventilator 40 02/22/19 10:30 73 23 121/59 (79) 97 02/22/19 10:00 24 Mechanical Ventilator 40 02/22/19 10:00 76 23 114/56 (75) 96 02/22/19 09:30 82 23 113/59 (77) 99 02/22/19 09:23 25 Mechanical Ventilator 40 02/22/19 09:00 91 24 135/64 (87) 88 02/22/19 09:00 28 Mechanical Ventilator 40 02/22/19 08:48 96 141/62 02/22/19 08:48 96 141/62 02/22/19 08:38 81 27 40 60 02/22/19 08:30 85 23 141/62 (88) 97 02/22/19 08:00 Mechanical Ventilator Mechanical Ventilator 02/22/19 08:00 98.5 76 28 128/56 (80) 96 02/22/19 08:00 40 02/22/19 08:00 28 Mechanical Ventilator 40 02/22/19 08:00 80 02/22/19 07:08 76 24 100 Mechanical Ventilator 40 02/22/19 07:02 73 27 40 60 02/22/19 07:01 74 25 97 Mechanical Ventilator 40 02/22/19 07:00 74 21 117/59 (78) 97 02/22/19 07:00 18 Mechanical Ventilator 40 02/22/19 06:30 74 22 117/55 (75) 97 02/22/19 06:00 18 Mechanical Ventilator 40 02/22/19 06:00 75 22 119/54 (75) 96 02/22/19 05:42 130/59 02/22/19 05:42 130/59 02/22/19 05:42 130/59 02/22/19 05:30 77 21 130/59 (82) 96 02/22/19 05:18 74 27 40 60 02/22/19 05:00 25 Mechanical Ventilator 40 02/22/19 05:00 74 26 113/56 (75) 100 02/22/19 04:30 77 24 119/53 (75) 100 02/22/19 04:00 98.5 78 18 125/63 (83) 99 02/22/19 04:00 83 02/22/19 04:00 22 Mechanical Ventilator 40 02/22/19 04:00 Mechanical Ventilator 02/22/19 04:00 40 02/22/19 03:30 79 24 125/63 (83) 98 7/4/19 03:23 78 24 100 Mechanical Ventilator 40 02/22/19 03:13 79 28 98 Mechanical Ventilator 40 02/22/19 03:11 79 28 40 60 02/22/19 03:00 23 Mechanical Ventilator 40 02/22/19 03:00 77 8 116/58 (77) 02/22/19 02:30 78 25 121/61 (81) 99 02/22/19 02:00 76 22 120/63 (82) 100 02/22/19 01:59 21 Mechanical Ventilator 40 02/22/19 01:58 28 Mechanical Ventilator 40 02/22/19 01:30 75 24 123/59 (80) 99 02/22/19 01:00 26 Mechanical Ventilator 40 02/22/19 01:00 77 24 123/59 (80) 97 02/22/19 00:55 79 24 40 60 02/22/19 00:30 86 30 138/69 (92) 98 02/22/19 00:00 Mechanical Ventilator 02/22/19 00:00 27 Mechanical Ventilator 40 02/22/19 00:00 97.6 87 34 135/57 (83) 94 02/21/19 23:47 148/64 02/21/19 23:47 148/64 02/21/19 23:30 84 25 148/64 (92) 92 02/21/19 23:01 76 24 100 Mechanical Ventilator 40 02/21/19 23:00 76 25 138/63 (88) 96 02/21/19 23:00 28 Mechanical Ventilator 60 02/21/19 22:50 25 Mechanical Ventilator 60 02/21/19 22:47 77 28 100 Mechanical Ventilator 40 02/21/19 22:46 77 28 40 60 02/21/19 22:40 27 Mechanical Ventilator 60 02/21/19 22:30 77 21 135/58 (83) 100 02/21/19 22:30 26 Mechanical Ventilator 60 02/21/19 22:20 26 Mechanical Ventilator 60 02/21/19 22:10 26 Mechanical Ventilator 60 02/21/19 22:00 27 Mechanical Ventilator 60 02/21/19 22:00 85 20 133/61 (85) 100 02/21/19 21:39 87 143/81 02/21/19 21:38 143/62 02/21/19 21:30 87 19 143/62 (89) 99 02/21/19 21:00 26 Mechanical Ventilator 60 02/21/19 21:00 87 20 138/62 (87) 99 02/21/19 20:33 82 24 50 60 02/21/19 20:30 83 23 133/61 (85) 100 02/21/19 20:00 Mechanical Ventilator 02/21/19 20:00 99.7 85 10 131/58 (82) 100 02/21/19 20:00 87 02/21/19 20:00 25 Mechanical Ventilator 60 02/21/19 20:00 60 02/21/19 19:45 86 24 100 Mechanical Ventilator 50 02/21/19 19:30 88 25 131/60 (83) 100 02/21/19 19:25 86 25 50 60 02/21/19 19:25 86 25 100 Mechanical Ventilator 50 02/21/19 19:00 92 32 134/56 (82) 98 02/21/19 18:34 152/65 02/21/19 18:33 152/65 02/21/19 18:30 94 21 152/65 (94) 97 02/21/19 18:00 93 33 151/61 (91) 95 02/21/19 17:30 93 27 140/69 (92) 97 02/21/19 17:00 82 24 60 02/21/19 17:00 86 28 134/66 (88) 100 02/21/19 17:00 26 Mechanical Ventilator 60 02/21/19 16:00 60 02/21/19 16:00 92 02/21/19 16:00 99.5 92 25 141/71 (94) 99 02/21/19 16:00 Mechanical Ventilator 02/21/19 16:00 24 Mechanical Ventilator 60 02/21/19 15:53 156/77 02/21/19 15:14 110 36 100 Mechanical Ventilator 60 02/21/19 15:10 100 33 60 02/21/19 15:00 Mechanical Ventilator 60 02/21/19 15:00 100 34 100 Mechanical Ventilator 60 02/21/19 15:00 92 25 156/77 (103) 99 02/21/19 14:30 91 28 145/72 (96) 99 Intake and Output 02/21/19 02/22/19 19:00 07:00 Intake Total 1576.093 ml 1280.300 ml Output Total 1950 ml 1200 ml Balance -373.907 ml 80.300 ml Free Water 160 ml IV Total 1226.093 ml 1100.300 ml Tube Feeding 150 ml 180 ml Other 40 ml Output Urine Total 1950 ml 1200 ml Laboratory Tests Test 02/21/19 19:50 02/22/19 04:36 Vancomycin Level Trough 17.9 ug/mL (5.0-12.0) H White Blood Count 7.2 K/UL (4.8-10.8) Red Blood Count 2.36 M/UL (4.70-6.10) L Hemoglobin 6.7 G/DL (14.2-18.0) *L Hematocrit 20.6 % (42.0-52.0) L Mean Corpuscular Volume 87 FL (80-99) Mean Corpuscular Hemoglobin 28.3 PG (27.0-31.0) Mean Corpuscular Hemoglobin Concent 32.5 G/DL (32.0-36.0) Red Cell Distribution Width 17.6 % (11.6-14.8) H Platelet Count 150 K/UL (150-450) Mean Platelet Volume 6.4 FL (6.5-10.1) L Neutrophils (%) (Auto) % (45.0-75.0) Lymphocytes (%) (Auto) % (20.0-45.0) Monocytes (%) (Auto) % (1.0-10.0) Eosinophils (%) (Auto) % (0.0-3.0) Basophils (%) (Auto) % (0.0-2.0) Differential Total Cells Counted 100 Neutrophils % (Manual) 92 % (45-75) H Lymphocytes % (Manual) 4 % (20-45) L Monocytes % (Manual) 4 % (1-10) Eosinophils % (Manual) 0 % (0-3) Basophils % (Manual) 0 % (0-2) Band Neutrophils 0 % (0-8) Platelet Estimate Adequate Platelet Morphology Normal Hypochromasia 4+ Anisocytosis 1+ Spherocytes 3+ Sodium Level 139 MMOL/L (136-145) Potassium Level 4.5 MMOL/L (3.5-5.1) Chloride Level 104 MMOL/L (98-107) Carbon Dioxide Level 25 MMOL/L (21-32) Anion Gap 10 mmol/L (5-15) Blood Urea Nitrogen 55 mg/dL (7-18) H Creatinine 2.7 MG/DL (0.55-1.30) H Estimat Glomerular Filtration Rate 24.3 mL/min (>60) Glucose Level 151 MG/DL (74-106) H Uric Acid 3.6 MG/DL (2.6-7.2) Calcium Level 7.9 MG/DL (8.5-10.1) L Phosphorus Level 4.1 MG/DL (2.5-4.9) Magnesium Level 1.8 MG/DL (1.8-2.4) Total Bilirubin 0.5 MG/DL (0.2-1.0) Aspartate Amino Transf (AST/SGOT) 55 U/L (15-37) H Alanine Aminotransferase (ALT/SGPT) 65 U/L (12-78) Alkaline Phosphatase 97 U/L (46-116) C-Reactive Protein, Quantitative 13.9 mg/dL (0.00-0.90) H Pro-B-Type Natriuretic Peptide 48000 pg/mL (0-125) H Total Protein 5.3 G/DL (6.4-8.2) L Albumin 2.1 G/DL (3.4-5.0) L Globulin 3.2 g/dL Albumin/Globulin Ratio 0.7 (1.0-2.7) L Microbiology Date/Time Source Procedure Growth Status 02/20/19 19:00 Blood Blood Culture - Preliminary NO GROWTH AFTER 24 HOURS Resulted 02/20/19 18:45 Blood Blood Culture - Preliminary NO GROWTH AFTER 24 HOURS Resulted 02/20/19 18:45 Sputum Gram Stain - Final Resulted 02/20/19 18:45 Sputum Sputum Culture - Preliminary NO GROWTH AFTER 24 HOURS Resulted 02/20/19 18:45 Indwelling Cath Urine Culture - Final NO GROWTH AFTER 48 HOURS Complete Objective HEAD AND NECK: No JVD.Orally intubated with dry blood in nose and around mouth LUNGS: Coarse rhonchi. CARDIOVASCULAR: Regular S1 and S2 with no gallop or murmur. ABDOMEN: Soft. EXTREMITIES: No pitting edema. Murray Francois MD Feb 22, 2019 14:09
--- NOTE | 2019-02-22 14:28 | NUR ---
NURSE NOTES: Dr Francois has rounded on the patient. He was updated on the patient's current condition. Patient restless at this time. BP 139/67, HR 72, SpO2 97%, and HR 72. Fentanyl running at 150mcg/hr. Will continue to monitor and titrate per protocol.
--- NOTE | 2019-02-22 14:53 | Infectious Diseases Prog Note ---
Assessment/Plan Assessment/Plan A) 1) pneumonia - ? new aspiration/hcap, ? CAP, ? pcp, ? fungal (cryptococcus/ cocci), sepsis, leukocytosis, ? line infection, ARDS, chf/edema 2) intubated on vent, s/p bronchoscopy, ARF, ? 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, on anti-retroviral treatment 4) rule out TB pna, in isolation - afb smear on bronchoscopy is negative, TB spot negative 5) pmh noted - hypertension, ckd, anemia, dm, cva, tia, migraines 6) allergies - nkda, sh-negative, fh-nc, mar noted 7) d/w RN P) 1) zosyn, iv bactrim (12/12/18), diflucan, discontinue iv vancomycin with negative cultures 2) leukocytosis better, monitor labs and chest x-ray 3) diarrhea may be secondary to colace and leukocytosis secondary to steroids 4) weaning per pulmonary medicine 5) critical condition, icu supportive care, vent support 6) skin care per protocol Subjective Constitutional: Reports: other - on vent ; Denies: fever HEENT: Reports: congestion Respiratory: Reports: shortness of breath Cardiovascular: Reports: other - no pressors Genitourinary: Reports: other - + smith Neurologic: Reports: weakness Skin: Denies: rash Hematologic: Denies: bleeding Musculoskeletal: Denies: pain Allergies: Coded Allergies: No Known Allergies (Unverified , 02/05/13) Objective Vital Signs Last 24 Hour Vital Signs Date Time Temp Pulse Resp B/P (MAP) Pulse Ox O2 Delivery O2 Flow Rate FiO2 02/22/19 14:36 137/72 02/22/19 13:45 72 24 137/75 (95) 97 02/22/19 13:30 72 24 139/67 (91) 97 02/22/19 13:15 72 24 131/73 (92) 97 02/22/19 13:00 72 24 140/68 (92) 95 02/22/19 12:52 140/72 02/22/19 12:52 140/72 02/22/19 12:45 73 21 139/65 (89) 96 02/22/19 12:40 71 28 40 02/22/19 12:30 73 22 140/72 (94) 97 02/22/19 12:15 73 21 143/66 (91) 96 02/22/19 12:00 98.1 74 22 136/64 (88) 96 02/22/19 12:00 Mechanical Ventilator Mechanical Ventilator 02/22/19 12:00 21 Mechanical Ventilator 40 02/22/19 12:00 75 02/22/19 12:00 40 02/22/19 11:45 75 23 136/61 (86) 96 02/22/19 11:30 77 21 138/63 (88) 96 02/22/19 11:15 79 22 138/63 (88) 94 02/22/19 11:00 98.1 84 23 166/79 (108) 93 02/22/19 11:00 29 Non-Rebreather 40 02/22/19 10:51 29 Mechanical Ventilator 40 02/22/19 10:50 24 Mechanical Ventilator 40 02/22/19 10:45 97.6 73 23 121/59 (79) 97 02/22/19 10:43 73 27 99 Mechanical Ventilator 40 02/22/19 10:42 73 28 40 02/22/19 10:33 73 24 96 Mechanical Ventilator 40 02/22/19 10:30 73 23 121/59 (79) 97 02/22/19 10:00 24 Mechanical Ventilator 40 02/22/19 10:00 76 23 114/56 (75) 96 02/22/19 09:30 82 23 113/59 (77) 99 02/22/19 09:23 25 Mechanical Ventilator 40 02/22/19 09:00 91 24 135/64 (87) 88 02/22/19 09:00 28 Mechanical Ventilator 40 02/22/19 08:48 96 141/62 02/22/19 08:48 96 141/62 02/22/19 08:38 81 27 40 60 02/22/19 08:30 85 23 141/62 (88) 97 02/22/19 08:00 Mechanical Ventilator Mechanical Ventilator 02/22/19 08:00 98.5 76 28 128/56 (80) 96 02/22/19 08:00 40 02/22/19 08:00 28 Mechanical Ventilator 40 02/22/19 08:00 80 02/22/19 07:08 76 24 100 Mechanical Ventilator 40 02/22/19 07:02 73 27 40 60 02/22/19 07:01 74 25 97 Mechanical Ventilator 40 02/22/19 07:00 74 21 117/59 (78) 97 02/22/19 07:00 18 Mechanical Ventilator 40 02/22/19 06:30 74 22 117/55 (75) 97 02/22/19 06:00 18 Mechanical Ventilator 40 02/22/19 06:00 75 22 119/54 (75) 96 02/22/19 05:42 130/59 02/22/19 05:42 130/59 02/22/19 05:42 130/59 02/22/19 05:30 77 21 130/59 (82) 96 02/22/19 05:18 74 27 40 60 02/22/19 05:00 25 Mechanical Ventilator 40 02/22/19 05:00 74 26 113/56 (75) 100 02/22/19 04:30 77 24 119/53 (75) 100 02/22/19 04:00 98.5 78 18 125/63 (83) 99 02/22/19 04:00 83 02/22/19 04:00 22 Mechanical Ventilator 40 02/22/19 04:00 Mechanical Ventilator 02/22/19 04:00 40 02/22/19 03:30 79 24 125/63 (83) 98 02/22/19 03:23 78 24 100 Mechanical Ventilator 40 02/22/19 03:13 79 28 98 Mechanical Ventilator 40 02/22/19 03:11 79 28 40 60 02/22/19 03:00 23 Mechanical Ventilator 40 02/22/19 03:00 77 8 116/58 (77) 02/22/19 02:30 78 25 121/61 (81) 99 02/22/19 02:00 76 22 120/63 (82) 100 02/22/19 01:59 21 Mechanical Ventilator 40 02/22/19 01:58 28 Mechanical Ventilator 40 02/22/19 01:30 75 24 123/59 (80) 99 02/22/19 01:00 26 Mechanical Ventilator 40 02/22/19 01:00 77 24 123/59 (80) 97 02/22/19 00:55 79 24 40 60 02/22/19 00:30 86 30 138/69 (92) 98 02/22/19 00:00 Mechanical Ventilator 02/22/19 00:00 27 Mechanical Ventilator 40 02/22/19 00:00 97.6 87 34 135/57 (83) 94 02/21/19 23:47 148/64 02/21/19 23:47 148/64 02/21/19 23:30 84 25 148/64 (92) 92 02/21/19 23:01 76 24 100 Mechanical Ventilator 40 02/21/19 23:00 76 25 138/63 (88) 96 02/21/19 23:00 28 Mechanical Ventilator 60 02/21/19 22:50 25 Mechanical Ventilator 60 02/21/19 22:47 77 28 100 Mechanical Ventilator 40 02/21/19 22:46 77 28 40 60 02/21/19 22:40 27 Mechanical Ventilator 60 02/21/19 22:30 77 21 135/58 (83) 100 02/21/19 22:30 26 Mechanical Ventilator 60 02/21/19 22:20 26 Mechanical Ventilator 60 02/21/19 22:10 26 Mechanical Ventilator 60 02/21/19 22:00 27 Mechanical Ventilator 60 02/21/19 22:00 85 20 133/61 (85) 100 02/21/19 21:39 87 143/81 02/21/19 21:38 143/62 02/21/19 21:30 87 19 143/62 (89) 99 02/21/19 21:00 26 Mechanical Ventilator 60 02/21/19 21:00 87 20 138/62 (87) 99 02/21/19 20:33 82 24 50 60 02/21/19 20:30 83 23 133/61 (85) 100 02/21/19 20:00 Mechanical Ventilator 02/21/19 20:00 99.7 85 10 131/58 (82) 100 02/21/19 20:00 87 02/21/19 20:00 25 Mechanical Ventilator 60 02/21/19 20:00 60 02/21/19 19:45 86 24 100 Mechanical Ventilator 50 02/21/19 19:30 88 25 131/60 (83) 100 02/21/19 19:25 86 25 50 60 02/21/19 19:25 86 25 100 Mechanical Ventilator 50 02/21/19 19:00 92 32 134/56 (82) 98 02/21/19 18:34 152/65 02/21/19 18:33 152/65 02/21/19 18:30 94 21 152/65 (94) 97 02/21/19 18:00 93 33 151/61 (91) 95 02/21/19 17:30 93 27 140/69 (92) 97 02/21/19 17:00 82 24 60 02/21/19 17:00 86 28 134/66 (88) 100 02/21/19 17:00 26 Mechanical Ventilator 60 02/21/19 16:00 60 02/21/19 16:00 92 02/21/19 16:00 99.5 92 25 141/71 (94) 99 02/21/19 16:00 Mechanical Ventilator 02/21/19 16:00 24 Mechanical Ventilator 60 02/21/19 15:53 156/77 02/21/19 15:14 110 36 100 Mechanical Ventilator 60 02/21/19 15:10 100 33 60 02/21/19 15:00 Mechanical Ventilator 60 02/21/19 15:00 100 34 100 Mechanical Ventilator 60 02/21/19 15:00 92 25 156/77 (103) 99 Height (Feet): 6 Height (Inches): 0.00 Weight (Pounds): 273 General Appearance: other - on vent and alert HEENT: normocephalic, atraumatic, anicteric Respiratory/Chest: crackles/rales, rhonchi - bilaterally Cardiovascular: normal rate, regular rhythm, no gallop/murmur Abdomen: normal bowel sounds, soft, non tender, distended Genitourinary: other - + smith - urine clear Extremities: no cyanosis Skin: no rash Neurologic/Psychiatric: alert, responsive Lymphatic: no neck adenopathy Musculoskeletal: no effusion Objective Chest x-ray - 02/10/19 - COMPARISON: Chest radiograph on 02/09/2019 FINDINGS: Hardware: Endotracheal tube terminates in the region of the mid thoracic trachea. Enteric tube courses past the diaphragm and out of the field of view. Lungs/pleura: Slightly decreased but persistent patchy consolidations in the right lung. Slightly decreased left perihilar opacities/consolidations. Possible small bilateral pleural effusions. Heart/mediastinum: Stable mild enlargement of the cardiomediastinal silhouette. Soft tissues: Unremarkable. Bones: No acute fracture. Degenerative changes of the visualized right acromioclavicular joint. Degenerative changes of the spine. Upper abdomen: Normal. 02/11/19 - chest x-ray - IMPRESSION: Slightly decreased but persistent patchy consolidations in the right lung. Slightly decreased left perihilar opacities. Findings may IMPRESSION: 1. No significant change in the interstitial and alveolar opacities in bilateral lungs. 2. Possible small bilateral pleural effusions, unchanged. represent infectious/inflammatory process and/or pulmonary edema. Possible small bilateral pleural effusions. 02/16/19 - chest x-ray - Impression: Worsening of aeration with increasing interstitial and bilateral predominantly perihilar airspace disease. Findings likely related to worsening CHF/pulmonary edema. Superimposed pneumonia to be excluded clinically. Follow-up recommended. Chest x-ray - 02/18/19 - COMPARISON: Chest radiograph on 02/16/2019 FINDINGS: Hardware: Endotracheal tube terminates in the region of the mid thoracic trachea. Enteric tube courses past the diaphragm and out of the field of view. Lungs/pleura: Slightly decreased but persistent hazy and interstitial opacities. Persistent small left pleural effusion. Heart/mediastinum: Stable mild enlargement of the cardiomediastinal silhouette. Soft tissues: Unremarkable. Bones: No acute fracture. Upper abdomen: Normal. IMPRESSION: Slightly decreased but persistent changes suggesting pulmonary edema. Component of infectious/inflammatory process is not excluded. Persistent small left pleural effusion. Chest x-ray - 02/20/19 - Procedure: XRAY Chest 1v Indication: Dyspnea Comparison: Earlier same day A single view chest radiograph was obtained. Findings: Intubation noted. The endotracheal tube is in good position about 3 cm above the christal. Cardiomegaly again noted. Moderate pulmonary vascular congestion demonstrated. IMPRESSION: Endotracheal tube in good position. CHF Chest x-ray - - FINDINGS: The tip of the endotracheal tube is appropriately positioned, projecting between the clavicular heads. The sidehole of the enteric tube projects within the stomach. Extensive bilateral consolidation is again noted. Favor multilobar pneumonia. Heart size is borderline, but likely exaggerated by portable technique. No pneumothorax. Bony degenerative changes. IMPRESSION: Extensive airspace consolidation, similar to prior. Favor multilobar pneumonia. Appropriately positioned tubes. Microbiology Date/Time Source Procedure Growth Status 02/20/19 19:00 Blood Blood Culture - Preliminary NO GROWTH AFTER 24 HOURS Resulted 02/20/19 18:45 Blood Blood Culture - Preliminary NO GROWTH AFTER 24 HOURS Resulted 02/20/19 18:45 Sputum Gram Stain - Final Resulted 02/20/19 18:45 Sputum Sputum Culture - Preliminary NO GROWTH AFTER 24 HOURS Resulted 02/20/19 18:45 Indwelling Cath Urine Culture - Final NO GROWTH AFTER 48 HOURS Complete Laboratory Tests Test 02/21/19 19:50 02/22/19 04:36 Vancomycin Level Trough 17.9 ug/mL (5.0-12.0) H White Blood Count 7.2 K/UL (4.8-10.8) Red Blood Count 2.36 M/UL (4.70-6.10) L Hemoglobin 6.7 G/DL (14.2-18.0) *L Hematocrit 20.6 % (42.0-52.0) L Mean Corpuscular Volume 87 FL (80-99) Mean Corpuscular Hemoglobin 28.3 PG (27.0-31.0) Mean Corpuscular Hemoglobin Concent 32.5 G/DL (32.0-36.0) Red Cell Distribution Width 17.6 % (11.6-14.8) H Platelet Count 150 K/UL (150-450) Mean Platelet Volume 6.4 FL (6.5-10.1) L Neutrophils (%) (Auto) % (45.0-75.0) Lymphocytes (%) (Auto) % (20.0-45.0) Monocytes (%) (Auto) % (1.0-10.0) Eosinophils (%) (Auto) % (0.0-3.0) Basophils (%) (Auto) % (0.0-2.0) Differential Total Cells Counted 100 Neutrophils % (Manual) 92 % (45-75) H Lymphocytes % (Manual) 4 % (20-45) L Monocytes % (Manual) 4 % (1-10) Eosinophils % (Manual) 0 % (0-3) Basophils % (Manual) 0 % (0-2) Band Neutrophils 0 % (0-8) Platelet Estimate Adequate Platelet Morphology Normal Hypochromasia 4+ Anisocytosis 1+ Spherocytes 3+ Sodium Level 139 MMOL/L (136-145) Potassium Level 4.5 MMOL/L (3.5-5.1) Chloride Level 104 MMOL/L (98-107) Carbon Dioxide Level 25 MMOL/L (21-32) Anion Gap 10 mmol/L (5-15) Blood Urea Nitrogen 55 mg/dL (7-18) H Creatinine 2.7 MG/DL (0.55-1.30) H Estimat Glomerular Filtration Rate 24.3 mL/min (>60) Glucose Level 151 MG/DL (74-106) H Uric Acid 3.6 MG/DL (2.6-7.2) Calcium Level 7.9 MG/DL (8.5-10.1) L Phosphorus Level 4.1 MG/DL (2.5-4.9) Magnesium Level 1.8 MG/DL (1.8-2.4) Total Bilirubin 0.5 MG/DL (0.2-1.0) Aspartate Amino Transf (AST/SGOT) 55 U/L (15-37) H Alanine Aminotransferase (ALT/SGPT) 65 U/L (12-78) Alkaline Phosphatase 97 U/L (46-116) C-Reactive Protein, Quantitative 13.9 mg/dL (0.00-0.90) H Pro-B-Type Natriuretic Peptide 63919 pg/mL (0-125) H Total Protein 5.3 G/DL (6.4-8.2) L Albumin 2.1 G/DL (3.4-5.0) L Globulin 3.2 g/dL Albumin/Globulin Ratio 0.7 (1.0-2.7) L Current Medications Medications (Trade) Dose Ordered Sig/Marquis Route PRN Reason Start Time Stop Time Status Last Admin Dose Admin Acetaminophen (Tylenol) 650 mg Q4H PRN ORAL Mild Pain (Pain Scale 1-3) 02/07/19 11:15 03/08/19 17:29 02/22/19 14:37 Acetaminophen/ Butalbital/ Caffeine (Fioricet) 1 tab Q8H PRN ORAL For Headache 02/08/19 17:15 03/10/19 17:14 Albuterol/ Ipratropium (Albuterol/ Ipratropium) 3 ml Q4HRT HHN 02/20/19 03:00 02/25/19 02:59 02/22/19 10:34 Amlodipine Besylate (Norvasc) 10 mg DAILY NG 02/15/19 09:00 03/14/19 15:59 02/22/19 08:48 Artificial Tears (Lacri-Lube) 1 applic AC+HS BOTH EYES 02/18/19 06:30 03/20/19 06:29 02/22/19 11:01 Bisacodyl (Dulcolax) 5 mg DAILYPRN PRN ORAL Constipation 02/08/19 17:15 03/10/19 17:14 02/18/19 20:13 Chlorhexidine Gluconate (Jessy-Hex 2%) 1 applic DAILY@2000 TOPIC 02/13/19 20:00 03/15/19 19:59 02/21/19 20:38 Clonidine HCl (Catapres Tab) 0.1 mg EVERY 6 HOURS NG 02/20/19 12:00 03/19/19 13:59 02/22/19 12:52 Dextrose (Dextrose 50%) 25 ml Q30M PRN IV Hypoglycemia 02/20/19 06:45 03/22/19 06:44 Dextrose (Dextrose 50%) 50 ml Q30M PRN IV Hypoglycemia 02/20/19 06:45 03/22/19 06:44 02/20/19 08:49 Dextrose/Sodium Chloride 1,000 ml @ 75 mls/hr [id number] IV 02/22/19 12:00 03/24/19 11:59 02/22/19 12:52 Docusate Sodium (Colace) 100 mg TID GT 02/12/19 18:00 03/12/19 08:59 02/22/19 12:53 Fentanyl Citrate 1000 mcg/Sodium Chloride 100 ml @ 0 mls/hr Q24H IV 02/21/19 13:00 02/28/19 12:59 02/22/19 10:51 Fluconazole/ Sodium Chloride 100 ml @ 100 mls/hr Q24H IV 02/20/19 18:00 02/27/19 17:59 02/21/19 19:01 Guaifenesin (Mucinex ER) 600 mg TWICE A DAY ORAL 02/07/19 18:00 03/09/19 08:59 02/22/19 08:48 Hydralazine HCl (Apresoline) 10 mg Q4H PRN IV bp over 165 syst 02/17/19 10:15 03/19/19 10:14 02/19/19 14:45 Hydralazine HCl (Apresoline) 50 mg Q8HR NG 02/22/19 14:00 03/21/19 21:59 02/22/19 14:36 Insulin Aspart (NovoLOG) EVERY 4 HOURS SUBQ 02/15/19 21:00 03/17/19 20:59 02/22/19 12:57 Insulin Detemir (Levemir) 16 units BID SUBQ 02/22/19 09:00 03/22/19 08:59 02/22/19 09:19 Isosorbide Dinitrate (Isordil) 20 mg Q6HR NG 02/22/19 12:00 03/15/19 12:59 02/22/19 12:52 Lorazepam (Ativan 2mg/ml 1ml) 2 mg Q2H PRN IV agitation/restlessness 02/19/19 22:00 02/26/19 21:44 02/22/19 14:37 Lorazepam (Ativan) 1 mg Q4H PRN ORAL For Anxiety 02/19/19 15:15 02/26/19 15:14 02/19/19 15:21 Methylprednisolone Sodium Succinate (Solu-MEDROL) 10 mg EVERY 12 HOURS IVP 02/19/19 21:00 03/12/19 20:59 02/22/19 08:49 Metolazone (Zaroxolyn) 10 mg DAILY NG 02/19/19 10:00 03/21/19 09:59 02/22/19 08:48 Metoprolol Tartrate (Lopressor) 100 mg Q12HR ORAL 02/22/19 21:00 03/08/19 20:59 Midazolam HCl (Versed 2mg/2ml vial) 1 mg Q2H PRN IVP Agitation 02/13/19 08:45 03/15/19 08:44 02/14/19 05:49 Neomycin/ Polymyxin/ Dexamethasone (Maxitrol Opth Oint) 1 applic BEDTIME BOTH EYES 02/18/19 21:00 03/20/19 20:59 02/21/19 22:02 Nitroglycerin (Ntg) 0.4 mg Q5M PRN SL Prn Chest Pain 02/07/19 11:00 03/08/19 17:29 02/08/19 07:42 Ondansetron HCl (Zofran) 4 mg Q6H PRN IVP Nausea & Vomiting 02/07/19 11:15 03/08/19 11:14 02/09/19 00:58 Pantoprazole (Protonix) 40 mg EVERY 12 HOURS IVP 02/22/19 21:00 03/24/19 20:59 Patient Own Medication (Patient's Own Med) 1 ea BID ORAL 02/07/19 18:00 03/09/19 17:59 02/22/19 08:53 Patient Own Medication (Patient's Own Med) 1 ea Q48H ORAL 02/18/19 09:00 03/20/19 08:59 02/22/19 08:53 Patient Own Medication (Patient's Own Med) 2 ea DAILY ORAL 02/08/19 09:00 03/10/19 08:59 02/22/19 08:53 Piperacillin Sod/ Tazobactam Sod 3.375 gm/Sodium Chloride 110 ml @ 27.5 mls/hr EVERY 8 HOURS IVPB 02/20/19 14:00 02/25/19 13:59 02/22/19 05:43 Polyethylene Glycol (Miralax) 17 gm BEDTIME ORAL 02/08/19 21:00 03/10/19 20:59 02/21/19 21:39 Sennosides (Senokot) 8.6 mg DAILY ORAL 02/13/19 12:00 03/15/19 11:59 02/22/19 08:47 Trimethoprim/ Sulfamethoxazole 25 ml/Dextrose 575 ml @ 383.333 mls/hr [id number] BACTRIM IV 02/20/19 12:00 02/27/19 11:59 02/22/19 08:47 Russ Tony MD Feb 22, 2019 14:53
--- NOTE | 2019-02-22 15:47 | NUR ---
HAND-OFF: Report given to TESSA Olea. Patient VS stable at this time. Patient showing no sign of acute distress at this time. Patient on fentanyl drip at 150mcg/hr with RASS Of -2. Patient second PRBC is running at this time. Endorsed to follow up.
[2019-02-22 17:49] LABS: HEMOGLOBIN 9.2 G/DL (14.2-18.0); MEAN CORPUSCULAR VOLUME 85 FL (80-99); PLATELET COUNT 150 K/UL (150-450); RED BLOOD COUNT 3.18 M/UL (4.70-6.10); RED CELL DISTRIBUTION WIDTH 15.5 % (11.6-14.8); WHITE BLOOD COUNT 7.5 K/UL (4.8-10.8)
[2019-02-22 17:52] LABS: BASOPHILS % (AUTO) 0.5 % (0.0-2.0); LYMPHOCYTES % (AUTO) 6.3 % (20.0-45.0); MONOCYTES % (AUTO) 6.3 % (1.0-10.0); NEUTROPHILS % (AUTO) 86.9 % (45.0-75.0)
--- NOTE | 2019-02-22 18:54 | NUR ---
RESPIRATORY NOTE: Received pt. on 840 vent. Vent settings are: A/C rate of 24, Vt 550, FI02 40%, PEEP +5. No respiratory distress noted, pt. sP02 @ 100%. Ambu bag @ BS. Vent plugged on red outlet. Will continue to monitor pt.
--- NOTE | 2019-02-22 18:54 | Neurology Progress Note ---
Interim History Interim History ROS Limited/Unobtainable: No Complaints: AMS Interim History on fentanyl drip intermittently follows midline commands Objective Physical Exam Last Vital Signs Date Time Temp Pulse Resp B/P (MAP) Pulse Ox O2 Delivery O2 Flow Rate FiO2 02/22/19 18:52 75 22 100 Mechanical Ventilator 40 02/22/19 18:30 127/60 (82) 02/22/19 16:00 98.0 02/20/19 12:00 15.0 Laboratory Tests Test 02/21/19 19:50 02/22/19 04:36 02/22/19 17:30 Vancomycin Level Trough 17.9 ug/mL (5.0-12.0) H White Blood Count 7.2 K/UL (4.8-10.8) 7.5 K/UL (4.8-10.8) Red Blood Count 2.36 M/UL (4.70-6.10) L 3.18 M/UL (4.70-6.10) L Hemoglobin 6.7 G/DL (14.2-18.0) *L 9.2 G/DL (14.2-18.0) #L Hematocrit 20.6 % (42.0-52.0) L 27.0 % (42.0-52.0) #L Mean Corpuscular Volume 87 FL (80-99) 85 FL (80-99) Mean Corpuscular Hemoglobin 28.3 PG (27.0-31.0) 29.0 PG (27.0-31.0) Mean Corpuscular Hemoglobin Concent 32.5 G/DL (32.0-36.0) 34.2 G/DL (32.0-36.0) Red Cell Distribution Width 17.6 % (11.6-14.8) H 15.5 % (11.6-14.8) H Platelet Count 150 K/UL (150-450) 150 K/UL (150-450) Mean Platelet Volume 6.4 FL (6.5-10.1) L 6.2 FL (6.5-10.1) L Neutrophils (%) (Auto) % (45.0-75.0) 86.9 % (45.0-75.0) H Lymphocytes (%) (Auto) % (20.0-45.0) 6.3 % (20.0-45.0) L Monocytes (%) (Auto) % (1.0-10.0) 6.3 % (1.0-10.0) Eosinophils (%) (Auto) % (0.0-3.0) 0.0 % (0.0-3.0) Basophils (%) (Auto) % (0.0-2.0) 0.5 % (0.0-2.0) Differential Total Cells Counted 100 Neutrophils % (Manual) 92 % (45-75) H Lymphocytes % (Manual) 4 % (20-45) L Monocytes % (Manual) 4 % (1-10) Eosinophils % (Manual) 0 % (0-3) Basophils % (Manual) 0 % (0-2) Band Neutrophils 0 % (0-8) Platelet Estimate Adequate Platelet Morphology Normal Hypochromasia 4+ Anisocytosis 1+ Spherocytes 3+ Sodium Level 139 MMOL/L (136-145) Potassium Level 4.5 MMOL/L (3.5-5.1) Chloride Level 104 MMOL/L (98-107) Carbon Dioxide Level 25 MMOL/L (21-32) Anion Gap 10 mmol/L (5-15) Blood Urea Nitrogen 55 mg/dL (7-18) H Creatinine 2.7 MG/DL (0.55-1.30) H Estimat Glomerular Filtration Rate 24.3 mL/min (>60) Glucose Level 151 MG/DL (74-106) H Uric Acid 3.6 MG/DL (2.6-7.2) Calcium Level 7.9 MG/DL (8.5-10.1) L Phosphorus Level 4.1 MG/DL (2.5-4.9) Magnesium Level 1.8 MG/DL (1.8-2.4) Total Bilirubin 0.5 MG/DL (0.2-1.0) Aspartate Amino Transf (AST/SGOT) 55 U/L (15-37) H Alanine Aminotransferase (ALT/SGPT) 65 U/L (12-78) Alkaline Phosphatase 97 U/L (46-116) C-Reactive Protein, Quantitative 13.9 mg/dL (0.00-0.90) H Pro-B-Type Natriuretic Peptide 55071 pg/mL (0-125) H Total Protein 5.3 G/DL (6.4-8.2) L Albumin 2.1 G/DL (3.4-5.0) L Globulin 3.2 g/dL Albumin/Globulin Ratio 0.7 (1.0-2.7) L General: well developed, well nourished, other Head: normocophalic, other Neck: no rigidity EENT: benign, other Neurologic Exam Mental Status: other Speech: other Language: other Cranial Nerve II: other Cranial Nerves III, IV, : other Cranial Nerve V: other Cranial Nerve VII: other Cranial Nerve VIII: other Cranial Nerve IX: other Cranial Nerve X: other Cranial Nerve XI: other Cranial Nerve XII: other Motor System: other Sensory: other Coordination: other Deep Tendon Reflexes: 0 bicep (L), 0 bicep (R), 0 tricep (L), 0 tricep (R), 0 brachioradialis (L), 0 brachioradialis (R), 0 knee (L), 0 knee (R), 0 ankle (L) , 0 ankle (R) Reflexes: mute plantar (L), mute plantar (R) Stance: other Gait: other Objective he is intubated and sedated. pupils are symmetric and reactive corneals present he withdraws to noxious stimuli without localizing. 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 (33) acute small R pontomedullary and left cerebellar peduncle strokes. 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
--- NOTE | 2019-02-22 19:30 | NUR ---
NURSE NOTES: Received report from TESSA Olea. Patient is sedated with fentanyl drip running @ 200mcg/hr with RASS -2. ETT 7.5/24 at lip line and vent setting AC24, TV550, Peep5 and FiO2 40%. NG tube connected with low intermittent suction and No tube feeding is running. Simon intact and draining with dark scott color urine. Left Ritesh cath intact and clean. Still with bilateral soft wrists restraints. Both radial pulses are palpable. Skin intact and clean on restraints site. No s/sx of bleeding noted. Keep HOB>30. Call light placed in easy reach. Will continue plan of care.
--- NOTE | 2019-02-22 19:36 | NUR ---
HAND-OFF: Report given to TESSA Ewing.
[2019-02-22] MEDS: Dyna-Hex 2% Top Sol 2oz TOPIC SCH (20:06)
[2019-02-22] MEDS ORDERED: NS 275ml ONE (21:08)
[2019-02-22] MEDS ORDERED: Tubing IV Secondary IV ONE (21:08)
--- NOTE | 2019-02-22 21:30 | NUR ---
NURSE NOTES: Repositioned patient. All due meds given as ordered. Still running fentanyl drip @150mcg/hr with RASS score -1. Will continue plan of care.
[2019-02-22] MEDS: Pantoprazole Inj IVP SCH (21:31)
[2019-02-22] MEDS: Maxitrol Opth Oint 3.5gm BOTH EYES SCH (21:32)
[2019-02-22] MEDS: Miralax 17gm pkt ORAL SCH (21:33)
--- NOTE | 2019-02-22 22:52 | Pulmonolgy Critical Care Note ---
Critical Care - Asmt/Plan Assessment/Plan: Pulmonary CCM Progress Note Critical Care - Asmt/Plan Problems: (1) Endotracheally intubated (2) Acute hypoxemic respiratory failure (3) Pneumonia (4) NSTEMI (non-ST elevated myocardial infarction) (5) AIDS (6) HIV disease (7) Hypertension (8) MDD (major depressive disorder), recurrent episode, moderate (9) Anemia (10) CKD (chronic kidney disease) (11) History of stroke (12) Diabetes (13) Anxiety (14) Malignant hypertension Assessment/Plan: VDRF - wean as tolerated ARDS Acute respiratory failure Bilateral pulmonary infiltrates, ? multilobar CAP vs atypical infection vs other ? 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, ID, GI Discussed with: nurses, consultants Critical Care - Objective Vital Signs Noted Status: sedated Condition: critical HEENT: atraumatic, normocephalic, other - ETT OGT Lungs: rales Heart: HR/BP stable Abdomen: soft, non-tender, active bowel sounds Extremities: edema - 2+ Blood Sugars: BS not controlled Critical Care - Subjective ROS Limited/Unobtainable: Yes ICU Day: 13 Intubation Day: 11 Interval Events: Failed SBT Condition: critical IV Access: central, peripheral EKG Rhythm: Sinus Rhythm FI02: 100 Vent Support Breath Rate: 24 Vent Support Mode: AC Vent Tidal Volume: 500 Sputum Amount: Scant PEEP: 5.0 PIP: 37 Fluids: D5W Drips: Versed, Fent Tube Feeding Amount: 50 Subjective: Sedated on fent/versed ET-Tube: 7.5 ET Position: 25 Labs: Laboratory Tests Test 02/16/19 03:30 02/16/19 05:05 02/16/19 08:08 Stool Occult Blood Pending White Blood Count 7.8 K/UL (4.8-10.8) # Red Blood Count 3.26 M/UL (4.70-6.10) L Hemoglobin 8.9 G/DL (14.2-18.0) L Hematocrit 27.8 % (42.0-52.0) L Mean Corpuscular Volume 85 FL (80-99) Mean Corpuscular Hemoglobin 27.5 PG (27.0-31.0) Mean Corpuscular Hemoglobin Concent 32.1 G/DL (32.0-36.0) Red Cell Distribution Width 18.1 % (11.6-14.8) H Platelet Count 253 K/UL (150-450) Mean Platelet Volume 6.4 FL (6.5-10.1) L Neutrophils (%) (Auto) % (45.0-75.0) Lymphocytes (%) (Auto) % (20.0-45.0) Monocytes (%) (Auto) % (1.0-10.0) Eosinophils (%) (Auto) % (0.0-3.0) Basophils (%) (Auto) % (0.0-2.0) Sodium Level 148 MMOL/L (136-145) H Potassium Level 5.8 MMOL/L (3.5-5.1) H Chloride Level 114 MMOL/L (98-107) H Carbon Dioxide Level 28 MMOL/L (21-32) Anion Gap 6 mmol/L (5-15) Blood Urea Nitrogen 71 mg/dL (7-18) H Creatinine 2.6 MG/DL (0.55-1.30) H Estimat Glomerular Filtration Rate 25.4 mL/min (>60) Glucose Level 269 MG/DL (74-106) H Uric Acid 4.8 MG/DL (2.6-7.2) Calcium Level 7.8 MG/DL (8.5-10.1) L Phosphorus Level 4.6 MG/DL (2.5-4.9) Magnesium Level 2.9 MG/DL (1.8-2.4) H Total Bilirubin 0.2 MG/DL (0.2-1.0) Aspartate Amino Transf (AST/SGOT) 32 U/L (15-37) Alanine Aminotransferase (ALT/SGPT) 51 U/L (12-78) Alkaline Phosphatase 157 U/L (46-116) H C-Reactive Protein, Quantitative 2.2 mg/dL (0.00-0.90) H Pro-B-Type Natriuretic Peptide 5575 pg/mL (0-125) H Total Protein 5.7 G/DL (6.4-8.2) L Albumin 2.0 G/DL (3.4-5.0) L Globulin 3.7 g/dL Albumin/Globulin Ratio 0.5 (1.0-2.7) L Random Vancomycin Level 11.4 ug/mL Arterial Blood pH 7.244 (7.350-7.450) Arterial Blood Partial Pressure CO2 59.1 mmHg (35.0-45.0) *H Arterial Blood Partial Pressure O2 63.4 mmHg (75.0-100.0) L Arterial Blood HCO3 25.0 mmol/L (22.0-26.0) Arterial Blood Oxygen Saturation 87.0 % (95-100) *L Arterial Blood Base Excess -3.0 (-2-2) L Benny Test Positive Critical Care - Objective Last 24 Hour Vital Signs Date Time Temp Pulse Resp B/P (MAP) Pulse Ox O2 Delivery O2 Flow Rate FiO2 02/22/19 22:49 67 24 40 02/22/19 22:48 67 24 98 Mechanical Ventilator 40 02/22/19 22:30 18 Mechanical Ventilator 40 02/22/19 22:00 73 14 132/70 (90) 98 02/22/19 21:32 71 120/58 02/22/19 21:32 120/58 02/22/19 21:30 20 Mechanical Ventilator 40 02/22/19 21:30 71 23 120/54 (76) 100 02/22/19 21:00 70 24 119/60 (79) 100 02/22/19 20:55 69 24 40 02/22/19 20:30 19 Mechanical Ventilator 40 02/22/19 20:30 71 23 125/61 (82) 100 02/22/19 20:00 73 02/22/19 20:00 Mechanical Ventilator Mechanical Ventilator 02/22/19 20:00 40 02/22/19 20:00 97.5 78 25 136/67 (90) 97 02/22/19 19:30 74 24 124/60 (81) 98 02/22/19 19:30 18 Mechanical Ventilator 40 02/22/19 19:13 78 24 98 Mechanical Ventilator 40 02/22/19 19:00 98.2 02/22/19 19:00 75 24 136/64 (88) 98 02/22/19 18:53 74 24 40 02/22/19 18:52 75 22 100 Mechanical Ventilator 40 02/22/19 18:30 71 19 127/60 (82) 97 02/22/19 18:30 24 Mechanical Ventilator 40 02/22/19 18:00 71 16 130/66 (87) 96 02/22/19 18:00 24 Mechanical Ventilator 40 02/22/19 17:56 131/65 02/22/19 17:56 131/65 02/22/19 17:30 72 23 131/65 (87) 97 02/22/19 17:00 70 23 137/65 (89) 97 02/22/19 17:00 24 Mechanical Ventilator 40 02/22/19 16:46 66 24 40 02/22/19 16:30 68 24 126/61 (82) 94 02/22/19 16:00 Mechanical Ventilator Mechanical Ventilator 02/22/19 16:00 70 02/22/19 16:00 40 02/22/19 16:00 24 Mechanical Ventilator 40 02/22/19 16:00 98.0 69 24 120/50 (73) 96 02/22/19 15:30 75 24 135/57 (83) 97 02/22/19 15:01 82 25 40 02/22/19 15:00 28 Mechanical Ventilator 40 02/22/19 15:00 79 24 148/90 (109) 98 02/22/19 14:53 77 24 100 Mechanical Ventilator 40 02/22/19 14:48 85 24 98 Mechanical Ventilator 40 02/22/19 14:36 137/72 02/22/19 14:30 85 24 137/72 (93) 99 02/22/19 14:00 24 Mechanical Ventilator 40 02/22/19 14:00 73 24 139/67 (91) 97 02/22/19 13:45 72 24 137/75 (95) 97 02/22/19 13:30 72 24 139/67 (91) 97 02/22/19 13:15 72 24 131/73 (92) 97 02/22/19 13:00 72 24 140/68 (92) 95 02/22/19 13:00 24 Mechanical Ventilator 40 02/22/19 12:52 140/72 02/22/19 12:52 140/72 02/22/19 12:45 73 21 139/65 (89) 96 02/22/19 12:40 71 28 40 02/22/19 12:30 73 22 140/72 (94) 97 02/22/19 12:15 73 21 143/66 (91) 96 02/22/19 12:00 98.1 74 22 136/64 (88) 96 02/22/19 12:00 Mechanical Ventilator Mechanical Ventilator 02/22/19 12:00 21 Mechanical Ventilator 40 02/22/19 12:00 75 02/22/19 12:00 40 02/22/19 11:45 75 23 136/61 (86) 96 02/22/19 11:30 77 21 138/63 (88) 96 02/22/19 11:15 79 22 138/63 (88) 94 02/22/19 11:00 98.1 84 23 166/79 (108) 93 02/22/19 11:00 29 Non-Rebreather 40 02/22/19 10:51 29 Mechanical Ventilator 40 02/22/19 10:50 24 Mechanical Ventilator 40 02/22/19 10:45 97.6 73 23 121/59 (79) 97 02/22/19 10:43 73 27 99 Mechanical Ventilator 40 02/22/19 10:42 73 28 40 02/22/19 10:33 73 24 96 Mechanical Ventilator 40 02/22/19 10:30 73 23 121/59 (79) 97 02/22/19 10:00 24 Mechanical Ventilator 40 02/22/19 10:00 76 23 114/56 (75) 96 02/22/19 09:30 82 23 113/59 (77) 99 02/22/19 09:23 25 Mechanical Ventilator 40 02/22/19 09:00 91 24 135/64 (87) 88 02/22/19 09:00 28 Mechanical Ventilator 40 02/22/19 08:48 96 141/62 02/22/19 08:48 96 141/62 02/22/19 08:38 81 27 40 60 02/22/19 08:30 85 23 141/62 (88) 97 7/4/19 08:00 Mechanical Ventilator Mechanical Ventilator 02/22/19 08:00 98.5 76 28 128/56 (80) 96 02/22/19 08:00 40 02/22/19 08:00 28 Mechanical Ventilator 40 02/22/19 08:00 80 02/22/19 07:08 76 24 100 Mechanical Ventilator 40 02/22/19 07:02 73 27 40 60 02/22/19 07:01 74 25 97 Mechanical Ventilator 40 02/22/19 07:00 74 21 117/59 (78) 97 02/22/19 07:00 18 Mechanical Ventilator 40 02/22/19 06:30 74 22 117/55 (75) 97 02/22/19 06:00 18 Mechanical Ventilator 40 02/22/19 06:00 75 22 119/54 (75) 96 02/22/19 05:42 130/59 02/22/19 05:42 130/59 02/22/19 05:42 130/59 02/22/19 05:30 77 21 130/59 (82) 96 02/22/19 05:18 74 27 40 60 02/22/19 05:00 25 Mechanical Ventilator 40 02/22/19 05:00 74 26 113/56 (75) 100 02/22/19 04:30 77 24 119/53 (75) 100 02/22/19 04:00 98.5 78 18 125/63 (83) 99 02/22/19 04:00 83 02/22/19 04:00 22 Mechanical Ventilator 40 02/22/19 04:00 Mechanical Ventilator 02/22/19 04:00 40 02/22/19 03:30 79 24 125/63 (83) 98 02/22/19 03:23 78 24 100 Mechanical Ventilator 40 02/22/19 03:13 79 28 98 Mechanical Ventilator 40 02/22/19 03:11 79 28 40 60 02/22/19 03:00 23 Mechanical Ventilator 40 02/22/19 03:00 77 8 116/58 (77) 02/22/19 02:30 78 25 121/61 (81) 99 02/22/19 02:00 76 22 120/63 (82) 100 02/22/19 01:59 21 Mechanical Ventilator 40 02/22/19 01:58 28 Mechanical Ventilator 40 02/22/19 01:30 75 24 123/59 (80) 99 02/22/19 01:00 26 Mechanical Ventilator 40 02/22/19 01:00 77 24 123/59 (80) 97 02/22/19 00:55 79 24 40 60 02/22/19 00:30 86 30 138/69 (92) 98 02/22/19 00:00 Mechanical Ventilator 02/22/19 00:00 27 Mechanical Ventilator 40 02/22/19 00:00 97.6 87 34 135/57 (83) 94 02/21/19 23:47 148/64 02/21/19 23:47 148/64 02/21/19 23:30 84 25 148/64 (92) 92 02/21/19 23:01 76 24 100 Mechanical Ventilator 40 02/21/19 23:00 76 25 138/63 (88) 96 02/21/19 23:00 28 Mechanical Ventilator 60 Micro: Microbiology Date/Time Source Procedure Growth Status 02/20/19 19:00 Blood Blood Culture - Preliminary NO GROWTH AFTER 24 HOURS Resulted 02/20/19 18:45 Blood Blood Culture - Preliminary NO GROWTH AFTER 24 HOURS Resulted 02/20/19 18:45 Sputum Gram Stain - Final Resulted 02/20/19 18:45 Sputum Sputum Culture - Preliminary NO GROWTH AFTER 24 HOURS Resulted 02/20/19 18:45 Indwelling Cath Urine Culture - Final NO GROWTH AFTER 48 HOURS Complete Accucheck: 119 Critical Care - Subjective FI02: 40 Vent Support Breath Rate: 24 Vent Support Mode: AC Vent Tidal Volume: 550 Sputum Amount: Small PEEP: 5.0 PIP: 38 I&O: Intake and Output 02/21/19 02/22/19 19:00 07:00 Intake Total 1576.093 ml 1280.300 ml Output Total 1950 ml 1200 ml Balance -373.907 ml 80.300 ml Free Water 160 ml IV Total 1226.093 ml 1100.300 ml Tube Feeding 150 ml 180 ml Other 40 ml Output Urine Total 1950 ml 1200 ml ET-Tube: 7.5 ET Position: 24 Salty Yan MD Feb 22, 2019 22:52
[2019-02-23] VITALS (40 sets, daily range): BP systolic 91–156; BP diastolic 54–95
[2019-02-23] MEDS: NovoLOG Insulin Flexpen SUBQ SCH ×6 (00:28→20:35)
[2019-02-23] MEDS: LORazepam Inj 2mg/ml 1ml IV PRN ×5 (00:37→23:42)
--- NOTE | 2019-02-23 00:37 | NUR ---
NURSE NOTES: Patient is agitated and trying to move out of bed. Ativan 2mg given as ordered.
[2019-02-23] MEDS: Midazolam 2mg/2ml Inj IVP PRN ×2 (00:47→05:01)
--- NOTE | 2019-02-23 00:47 | NUR ---
NURSE NOTES: Patient is still agitated and keep moving around. Monitoring with another RN. Versed 1mg is given as ordered.
--- NOTE | 2019-02-23 00:58 | NUR ---
NURSE NOTES: Patient is calm and comfortable. Will continue to monitor closely.
--- NOTE | 2019-02-23 01:00 | NUR ---
NURSE NOTES: Patient open eyes and calm. Titrated up fentanyl rate to 200mcg/hr.
[2019-02-23] MEDS: D5 1/2NS 1,000 ML IV SCH ×2 (01:29→13:43)
--- NOTE | 2019-02-23 02:00 | NUR ---
NURSE NOTES: Patient is restlessness. Increased fentanyl drip rate to 250mcg/hr.
[2019-02-23] MEDS: Albuterol/Ipratropium 3ml neb HHN SCH ×6 (02:48→23:00)
--- NOTE | 2019-02-23 03:08 | NUR ---
NURSE NOTES: Patient is restlessness and try to get out of bed. Ativan 2mg IVP is given as ordered. Will continue plan of care.
--- NOTE | 2019-02-23 04:05 | NUR ---
NURSE NOTES: Bed bath and oral care given. Repositioned patient.
--- NOTE | 2019-02-23 05:01 | NUR ---
NURSE NOTES: Patient awake and noted with restlessness. Versed 1mg given as ordered.
[2019-02-23 05:47] LABS: ANION GAP 10 mmol/L (5-15); BLOOD UREA NITROGEN 58 mg/dL (7-18); CARBON DIOXIDE 26 MMOL/L (21-32); CHLORIDE 100 MMOL/L (98-107); CREATININE 2.6 MG/DL (0.55-1.30); POTASSIUM 4.5 MMOL/L (3.5-5.1); SODIUM 135 MMOL/L (136-145)
[2019-02-23] MEDS: HydrALAZINE 50mg tab NG SCH ×3 (05:49→21:39)
[2019-02-23] MEDS: Zosyn 3.375gm q8h **Extended infusion IVPB SCH ×6 (05:49→21:39)
[2019-02-23] MEDS: Lacri-Lube Opth Oint 3.5gm BOTH EYES SCH ×4 (05:49→20:34)
--- NOTE | 2019-02-23 06:19 | NUR ---
NURSE NOTES: Collected sputum and sent it to the lab.
--- NOTE | 2019-02-23 06:53 | General Progress Note ---
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 ICD Codes: E11.22 - Type 2 diabetes mellitus with diabetic chronic kidney disease; E11.65 - Type 2 diabetes mellitus with hyperglycemia SNOMED: 56031506, 924069068, 525659997 (3) HIV disease ICD Codes: B20 - Human immunodeficiency virus [HIV] disease SNOMED: 03489738 (4) Respiratory distress ICD Codes: R06.03 - Acute respiratory distress SNOMED: 747390680 Status: unchanged Assessment/Plan: - reduce Levemir to 10 units bid - continue Novolog sliding scale resistant scale every 4 hours Subjective ROS Limited/Unobtainable: Yes Allergies: Coded Allergies: No Known Allergies (Unverified , 02/05/13) Subjective events noted Item Value Date Time Bedside Blood Glucose 91 mg/dl 02/23/19 0500 Bedside Blood Glucose 96 mg/dl 02/23/19 0100 Bedside Blood Glucose 119 mg/dl 02/22/19 2204 Bedside Blood Glucose 103 mg/dl 02/22/19 1757 Bedside Blood Glucose 145 mg/dl H 02/22/19 1300 Objective Last 24 Hour Vital Signs Date Time Temp Pulse Resp B/P (MAP) Pulse Ox O2 Delivery O2 Flow Rate FiO2 02/23/19 06:35 18 Mechanical Ventilator 40 02/23/19 06:30 73 17 131/65 (87) 99 02/23/19 06:00 75 17 124/72 (89) 96 02/23/19 05:49 131/73 02/23/19 05:48 131/73 02/23/19 05:48 131/73 02/23/19 05:35 16 Mechanical Ventilator 40 02/23/19 05:34 18 Mechanical Ventilator 40 02/23/19 05:30 73 20 131/73 (92) 99 02/23/19 05:06 77 25 40 02/23/19 05:00 74 18 136/67 (90) 96 02/23/19 05:00 18 Mechanical Ventilator 40 02/23/19 04:30 77 25 143/72 (95) 97 02/23/19 04:00 97.2 82 17 141/95 (110) 94 02/23/19 04:00 20 Mechanical Ventilator 40 02/23/19 04:00 77 02/23/19 04:00 Mechanical Ventilator Mechanical Ventilator 02/23/19 04:00 40 02/23/19 03:30 73 23 123/67 (85) 96 02/23/19 03:00 69 23 119/59 (79) 96 02/23/19 03:00 18 Mechanical Ventilator 40 02/23/19 02:58 78 24 100 Mechanical Ventilator 40 02/23/19 02:48 72 24 97 Mechanical Ventilator 40 02/23/19 02:43 78 26 40 02/23/19 02:30 72 24 134/62 (86) 97 02/23/19 02:00 25 Mechanical Ventilator 40 02/23/19 02:00 79 24 156/74 (101) 94 02/23/19 01:30 69 24 110/56 (74) 94 02/23/19 01:20 68 24 40 02/23/19 01:00 71 24 121/59 (79) 95 02/23/19 01:00 22 Mechanical Ventilator 40 02/23/19 00:30 23 Mechanical Ventilator 40 02/23/19 00:30 76 15 91/68 (76) 95 02/23/19 00:00 97.8 71 13 122/68 (86) 95 02/23/19 00:00 18 Mechanical Ventilator 40 02/23/19 00:00 Mechanical Ventilator Mechanical Ventilator 02/22/19 23:41 135/66 02/22/19 23:41 135/66 02/22/19 23:30 70 24 127/63 (84) 98 02/22/19 23:30 20 Mechanical Ventilator 40 02/22/19 23:15 73 24 100 Mechanical Ventilator 40 02/22/19 23:00 69 22 120/56 (77) 99 02/22/19 22:49 67 24 40 02/22/19 22:48 67 24 98 Mechanical Ventilator 40 02/22/19 22:30 18 Mechanical Ventilator 40 02/22/19 22:30 69 23 126/66 (86) 98 02/22/19 22:00 73 14 132/70 (90) 98 02/22/19 21:32 71 120/58 02/22/19 21:32 120/58 02/22/19 21:30 20 Mechanical Ventilator 40 02/22/19 21:30 71 23 120/54 (76) 100 02/22/19 21:00 70 24 119/60 (79) 100 02/22/19 20:55 69 24 40 02/22/19 20:30 19 Mechanical Ventilator 40 02/22/19 20:30 71 23 125/61 (82) 100 02/22/19 20:00 73 02/22/19 20:00 Mechanical Ventilator Mechanical Ventilator 02/22/19 20:00 40 02/22/19 20:00 97.5 78 25 136/67 (90) 97 02/22/19 19:30 74 24 124/60 (81) 98 02/22/19 19:30 18 Mechanical Ventilator 40 02/22/19 19:13 78 24 98 Mechanical Ventilator 40 02/22/19 19:00 98.2 02/22/19 19:00 75 24 136/64 (88) 98 02/22/19 18:53 74 24 40 02/22/19 18:52 75 22 100 Mechanical Ventilator 40 02/22/19 18:30 71 19 127/60 (82) 97 02/22/19 18:30 24 Mechanical Ventilator 40 02/22/19 18:00 71 16 130/66 (87) 96 02/22/19 18:00 24 Mechanical Ventilator 40 02/22/19 17:56 131/65 02/22/19 17:56 131/65 02/22/19 17:30 72 23 131/65 (87) 97 02/22/19 17:00 70 23 137/65 (89) 97 02/22/19 17:00 24 Mechanical Ventilator 40 02/22/19 16:46 66 24 40 02/22/19 16:30 68 24 126/61 (82) 94 02/22/19 16:00 Mechanical Ventilator Mechanical Ventilator 02/22/19 16:00 70 02/22/19 16:00 40 02/22/19 16:00 24 Mechanical Ventilator 40 02/22/19 16:00 98.0 69 24 120/50 (73) 96 02/22/19 15:30 75 24 135/57 (83) 97 02/22/19 15:01 82 25 40 02/22/19 15:00 28 Mechanical Ventilator 40 02/22/19 15:00 79 24 148/90 (109) 98 02/22/19 14:53 77 24 100 Mechanical Ventilator 40 02/22/19 14:48 85 24 98 Mechanical Ventilator 40 02/22/19 14:36 137/72 02/22/19 14:30 85 24 137/72 (93) 99 02/22/19 14:00 24 Mechanical Ventilator 40 02/22/19 14:00 73 24 139/67 (91) 97 02/22/19 13:45 72 24 137/75 (95) 97 02/22/19 13:30 72 24 139/67 (91) 97 02/22/19 13:15 72 24 131/73 (92) 97 02/22/19 13:00 72 24 140/68 (92) 95 02/22/19 13:00 24 Mechanical Ventilator 40 02/22/19 12:52 140/72 02/22/19 12:52 140/72 02/22/19 12:45 73 21 139/65 (89) 96 02/22/19 12:40 71 28 40 02/22/19 12:30 73 22 140/72 (94) 97 02/22/19 12:15 73 21 143/66 (91) 96 02/22/19 12:00 98.1 74 22 136/64 (88) 96 02/22/19 12:00 Mechanical Ventilator Mechanical Ventilator 02/22/19 12:00 21 Mechanical Ventilator 40 02/22/19 12:00 75 02/22/19 12:00 40 02/22/19 11:45 75 23 136/61 (86) 96 02/22/19 11:30 77 21 138/63 (88) 96 02/22/19 11:15 79 22 138/63 (88) 94 02/22/19 11:00 98.1 84 23 166/79 (108) 93 02/22/19 11:00 29 Non-Rebreather 40 02/22/19 10:51 29 Mechanical Ventilator 40 02/22/19 10:50 24 Mechanical Ventilator 40 02/22/19 10:45 97.6 73 23 121/59 (79) 97 02/22/19 10:43 73 27 99 Mechanical Ventilator 40 02/22/19 10:42 73 28 40 02/22/19 10:33 73 24 96 Mechanical Ventilator 40 02/22/19 10:30 73 23 121/59 (79) 97 02/22/19 10:00 24 Mechanical Ventilator 40 02/22/19 10:00 76 23 114/56 (75) 96 02/22/19 09:30 82 23 113/59 (77) 99 02/22/19 09:23 25 Mechanical Ventilator 40 02/22/19 09:00 91 24 135/64 (87) 88 02/22/19 09:00 28 Mechanical Ventilator 40 02/22/19 08:48 96 141/62 02/22/19 08:48 96 141/62 02/22/19 08:38 81 27 40 60 02/22/19 08:30 85 23 141/62 (88) 97 02/22/19 08:00 Mechanical Ventilator Mechanical Ventilator 02/22/19 08:00 98.5 76 28 128/56 (80) 96 02/22/19 08:00 40 02/22/19 08:00 28 Mechanical Ventilator 40 02/22/19 08:00 80 02/22/19 07:08 76 24 100 Mechanical Ventilator 40 02/22/19 07:02 73 27 40 60 02/22/19 07:01 74 25 97 Mechanical Ventilator 40 02/22/19 07:00 74 21 117/59 (78) 97 02/22/19 07:00 18 Mechanical Ventilator 40 Intake and Output 02/22/19 02/23/19 18:59 06:59 Intake Total 2085.750 ml 1277.5 ml Output Total 1380 ml 1175 ml Balance 705.750 ml 102.5 ml Free Water 10 ml IV Total 1880.750 ml 1217.5 ml Tube Feeding 15 ml Other 180 ml 60 ml Output Urine Total 1150 ml 1175 ml Stool Total 50 ml Gastric Drainage Total 180 ml Laboratory Tests 02/22/19 17:30: White Blood Count 7.5, Red Blood Count 3.18L, Hemoglobin 9.2#L, Hematocrit 27.0# L, Mean Corpuscular Volume 85, Mean Corpuscular Hemoglobin 29.0, Mean Corpuscular Hemoglobin Concent 34.2, Red Cell Distribution Width 15.5H, Platelet Count 150, Mean Platelet Volume 6.2L, Neutrophils (%) (Auto) 86.9H, Lymphocytes (%) (Auto) 6.3L, Monocytes (%) (Auto) 6.3, Eosinophils (%) (Auto) 0.0, Basophils (%) (Auto) 0.5 02/23/19 04:30: Sodium Level 135L, Potassium Level 4.5, Chloride Level 100, Carbon Dioxide Level 26, Anion Gap 10, Blood Urea Nitrogen 58H, Creatinine 2.6H, Estimat Glomerular Filtration Rate 25.4, Glucose Level 93, Calcium Level 8.0L Height (Feet): 6 Height (Inches): 0.00 Weight (Pounds): 274 General Appearance: severe distress Neck: normal alignment Cardiovascular: tachycardia Respiratory/Chest: decreased breath sounds Abdomen: normal bowel sounds Edema: 2+ Arm (L), 2+ Arm (R), 2+ Leg (L), 2+ Leg (R), 2+ Pedal (L), 2+ Pedal ( R), 2+ Generalized Objective Current Medications Medications (Trade) Dose Ordered Sig/Marquis Route PRN Reason Start Time Stop Time Status Last Admin Dose Admin Acetaminophen (Tylenol) 650 mg Q4H PRN ORAL Mild Pain (Pain Scale 1-3) 02/07/19 11:15 03/08/19 17:29 02/22/19 14:37 Acetaminophen/ Butalbital/ Caffeine (Fioricet) 1 tab Q8H PRN ORAL For Headache 02/08/19 17:15 03/10/19 17:14 Albuterol/ Ipratropium (Albuterol/ Ipratropium) 3 ml Q4HRT HHN 02/20/19 03:00 02/25/19 02:59 02/23/19 02:48 Amlodipine Besylate (Norvasc) 10 mg DAILY NG 02/15/19 09:00 03/14/19 15:59 02/22/19 08:48 Artificial Tears (Lacri-Lube) 1 applic AC+HS BOTH EYES 02/18/19 06:30 03/20/19 06:29 02/23/19 05:49 Bisacodyl (Dulcolax) 5 mg DAILYPRN PRN ORAL Constipation 02/08/19 17:15 03/10/19 17:14 02/18/19 20:13 Chlorhexidine Gluconate (Jessy-Hex 2%) 1 applic DAILY@2000 TOPIC 02/13/19 20:00 03/15/19 19:59 02/22/19 20:06 Clonidine HCl (Catapres Tab) 0.1 mg EVERY 6 HOURS NG 02/20/19 12:00 03/19/19 13:59 02/23/19 05:48 Dextrose (Dextrose 50%) 25 ml Q30M PRN IV Hypoglycemia 02/20/19 06:45 03/22/19 06:44 Dextrose (Dextrose 50%) 50 ml Q30M PRN IV Hypoglycemia 02/20/19 06:45 03/22/19 06:44 02/20/19 08:49 Dextrose/Sodium Chloride 1,000 ml @ 75 mls/hr [id number] IV 02/22/19 12:00 03/24/19 11:59 02/23/19 01:29 Docusate Sodium (Colace) 100 mg TID GT 02/12/19 18:00 03/12/19 08:59 02/22/19 17:55 Fentanyl Citrate 1000 mcg/Sodium Chloride 100 ml @ 0 mls/hr Q24H IV 02/21/19 13:00 02/28/19 12:59 02/23/19 05:35 Fluconazole/ Sodium Chloride 100 ml @ 100 mls/hr Q24H IV 02/20/19 18:00 02/27/19 17:59 02/22/19 17:34 Guaifenesin (Mucinex ER) 600 mg TWICE A DAY ORAL 02/07/19 18:00 03/09/19 08:59 02/22/19 17:56 Hydralazine HCl (Apresoline) 10 mg Q4H PRN IV bp over 165 syst 02/17/19 10:15 03/19/19 10:14 02/19/19 14:45 Hydralazine HCl (Apresoline) 50 mg Q8HR NG 02/22/19 14:00 03/21/19 21:59 02/23/19 05:49 Insulin Aspart (NovoLOG) EVERY 4 HOURS SUBQ 02/15/19 21:00 03/17/19 20:59 02/22/19 22:04 Insulin Detemir (Levemir) 16 units BID SUBQ 02/22/19 09:00 03/22/19 08:59 02/22/19 17:57 Isosorbide Dinitrate (Isordil) 20 mg Q6HR NG 02/22/19 12:00 03/15/19 12:59 02/23/19 05:48 Lorazepam (Ativan 2mg/ml 1ml) 2 mg Q2H PRN IV agitation/restlessness 02/19/19 22:00 02/26/19 21:44 02/23/19 03:08 Lorazepam (Ativan) 1 mg Q4H PRN ORAL For Anxiety 02/19/19 15:15 02/26/19 15:14 02/19/19 15:21 Methylprednisolone Sodium Succinate (Solu-MEDROL) 10 mg EVERY 12 HOURS IVP 02/19/19 21:00 03/12/19 20:59 02/22/19 21:31 Metolazone (Zaroxolyn) 10 mg DAILY NG 02/19/19 10:00 03/21/19 09:59 02/22/19 08:48 Metoprolol Tartrate (Lopressor) 100 mg Q12HR ORAL 02/22/19 21:00 03/08/19 20:59 02/22/19 21:32 Midazolam HCl (Versed 2mg/2ml vial) 1 mg Q2H PRN IVP Agitation 02/13/19 08:45 03/15/19 08:44 02/23/19 05:01 Neomycin/ Polymyxin/ Dexamethasone (Maxitrol Opth Oint) 1 applic BEDTIME BOTH EYES 02/18/19 21:00 03/20/19 20:59 02/22/19 21:32 Nitroglycerin (Ntg) 0.4 mg Q5M PRN SL Prn Chest Pain 02/07/19 11:00 03/08/19 17:29 02/08/19 07:42 Ondansetron HCl (Zofran) 4 mg Q6H PRN IVP Nausea & Vomiting 02/07/19 11:15 03/08/19 11:14 02/09/19 00:58 Pantoprazole (Protonix) 40 mg EVERY 12 HOURS IVP 02/22/19 21:00 03/24/19 20:59 02/22/19 21:31 Patient Own Medication (Patient's Own Med) 1 ea BID ORAL 02/07/19 18:00 03/09/19 17:59 02/22/19 17:35 Patient Own Medication (Patient's Own Med) 1 ea Q48H ORAL 02/18/19 09:00 03/20/19 08:59 02/22/19 08:53 Patient Own Medication (Patient's Own Med) 2 ea DAILY ORAL 02/08/19 09:00 03/10/19 08:59 02/22/19 08:53 Piperacillin Sod/ Tazobactam Sod 3.375 gm/Sodium Chloride 110 ml @ 27.5 mls/hr EVERY 8 HOURS IVPB 02/20/19 14:00 02/25/19 13:59 02/23/19 05:49 Polyethylene Glycol (Miralax) 17 gm BEDTIME ORAL 02/08/19 21:00 03/10/19 20:59 02/22/19 21:33 Sennosides (Senokot) 8.6 mg DAILY ORAL 02/13/19 12:00 03/15/19 11:59 02/22/19 08:47 Trimethoprim/ Sulfamethoxazole 25 ml/Dextrose 575 ml @ 383.333 mls/hr [id number] BACTRIM IV 02/20/19 12:00 02/27/19 11:59 02/22/19 23:39 Carlito Nichols MD Feb 23, 2019 06:53
--- NOTE | 2019-02-23 06:55 | NUR ---
RESPIRATORY NOTE: PT RECEIVED STABLE ON ACVC WITH CURRENT SETTINGS: 24, 550, 40%, +5. ALARMS ARE ON AND AUDIBLE. VENT CIRCUIT SECURE AND OUT OF THE WAY. PT IS CURRENTLY SEDATED. BILATERAL SOFT WRIST RESTRAINS ARE IN PLACE AND PROPERLY ADJUSTED. GLIDESCOPE BITE BLOCK IS IN PLACE AND IT PREVENT THE ETT PLACEMENT TO BE SHIFTED FROM RIGHT TO LEFT. ETT CURRENTLY IN THE MIDDLE OF THE MOUTH. NO S/S OF RESPIRATORY DISTRESS NOTED AT THIS TIME. WILL CONTINUE TO MONITOR.
--- NOTE | 2019-02-23 07:15 | Hematology/Onc Progress Note ---
Assessment/Plan Assessment/Plan # Anemia of chronic disease due to underlying chronic medical issues, multifactorial --> Anemia workup has been reviewed. Ferritin 182 --> No evidence of hemolysis is noted, peripheral smear has been reviewed. --> Hgb goal >7. Transfuse prn. --> Epogen or iron at this time is not particularly indicated --> Medications have been reviewed --> Stool OB negative --> bone marrow biopsy is not indicated given the other more likely causes --> Blood tx: 1 unit on 02/10/19, 02/22/2019 --> Hgb trend: 7.6-->8.2-->9.4-->8.4-->8.2 -->8.9-->10.3->7.9-->8.1->7.8--> 9.2 # Thrombocytopenia - potential causes multifactorial, likely related to HIV status --> Hep panel pending and HIV confirmed positive --> US abd to evaluate for cirrhosis hows hepatosplenomegaly --> Peripheral smear ordered to evaluate for blasts /schistocytes does not show any --> abx and other meds have been reviewed --> ok for ppx if plt >50k w/ either heparin or lovenox --> Transfuse if Plt < 20k and fever, or if Plt < 10k without fever --> Plt trend: 153-->257-->224-->205-->253-->310-->201 --> WILLIAM screen negative # Multilobar pneumonia in patient with HIV. Recs per ID. --> Broad sp atbx started. Continue Zosyn, Vancomycin and Azithromycin --> Droplet precaution # Hypoxemic respiratory failure. Pulm is following, appreciate recs. --> Bipap as needed, transition to O2 via NC when able --> Due to pneumonia, on abx --> now intubated 02/20 # Chest pain. 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 --> Trend troponin x3 --> NGT prn # HIV. --> Continue HARRT --> VL is undetectable per patient report. # HTN --> Resume home medication # DVT and GI ppx The time the note is entered does not reflect the time the patient was examined. I greatly appreciate the consultation. Subjective Allergies: Coded Allergies: No Known Allergies (Unverified , 02/05/13) Subjective Subjective Subjective HEENT: Denies: no symptoms, eye pain, blurred vision, tearing, double vision, ear pain, ear discharge, nose pain, nose congestion, throat pain, throat swelling, mouth pain, mouth swelling, other Cardiovascular: Denies: no symptoms, chest pain, edema, irregular heart rate, lightheadedness, palpitations, syncope, other Respiratory: Denies: no symptoms, cough, shortness of breath, SOB with excertion, SOB at rest, sputum, wheezing, other Genitourinary: Denies: no symptoms, burning, discharge, frequency, flank pain, hematuria, incontinence, pain, urgency, other Neurologic/Psychiatric: Denies: no symptoms, anxiety, depressed, emotional problems, headache, numbness, paresthesia, pre-existing deficit, seizure, tingling, tremors, weakness, other Hematologic/Lymphatic: Denies: no symptoms, anemia, easy bleeding, easy bruising, adenopathy, other Allergies: Coded Allergies: No Known Allergies (Unverified , 02/05/13) Subjective 02/11: Hgb yesterday was 7.6, s/p 1 unit prbc. Current hgb at 8.2. Pt attempted to pull out tubes per nursing team, soft restraints applied. 02/13: Pt in ICU and intubated. Pt currently sedated. Current hgb 9.4. 02/14: Pt remains in icu, sedated. Hgb stable. 02/15: Remains in icu, lethargic. No acute events. Hgb stable. 02/16: Remains in icu. CXR today shows worsening CHF/pulmonary edema. Pt wake and sedation decrease for weaning. 02/18: Remains in icu. Pt on vent. CXR today shows pulmonary edema, persistent small left pleural effusion. 02/19: Remains in the icu, now extubated, seen by pulm, labs reviewed 02/20: Remains in ICU, Pt intubated, CXR today shows Congestive heart failure with interval worsening 02/21: reintubated, tolerating vent well, seen by pulm/cc 02/23: pt remains on fently gtt, prn ativan, currenlty intubated on vent, no further bleeding, d/w RN> Objective Objective Current Medications Medications (Trade) Dose Ordered Sig/Marquis Route PRN Reason Start Time Stop Time Status Last Admin Dose Admin Acetaminophen (Tylenol) 650 mg Q4H PRN ORAL Mild Pain (Pain Scale 1-3) 02/07/19 11:15 03/08/19 17:29 02/22/19 14:37 Acetaminophen/ Butalbital/ Caffeine (Fioricet) 1 tab Q8H PRN ORAL For Headache 02/08/19 17:15 03/10/19 17:14 Albuterol/ Ipratropium (Albuterol/ Ipratropium) 3 ml Q4HRT HHN 02/20/19 03:00 02/25/19 02:59 02/23/19 06:57 Amlodipine Besylate (Norvasc) 10 mg DAILY NG 02/15/19 09:00 03/14/19 15:59 02/22/19 08:48 Artificial Tears (Lacri-Lube) 1 applic AC+HS BOTH EYES 02/18/19 06:30 03/20/19 06:29 02/23/19 05:49 Bisacodyl (Dulcolax) 5 mg DAILYPRN PRN ORAL Constipation 02/08/19 17:15 03/10/19 17:14 02/18/19 20:13 Chlorhexidine Gluconate (Jessy-Hex 2%) 1 applic DAILY@2000 TOPIC 02/13/19 20:00 03/15/19 19:59 02/22/19 20:06 Clonidine HCl (Catapres Tab) 0.1 mg EVERY 6 HOURS NG 02/20/19 12:00 03/19/19 13:59 02/23/19 05:48 Dextrose (Dextrose 50%) 25 ml Q30M PRN IV Hypoglycemia 02/20/19 06:45 03/22/19 06:44 Dextrose (Dextrose 50%) 50 ml Q30M PRN IV Hypoglycemia 02/20/19 06:45 03/22/19 06:44 02/20/19 08:49 Dextrose/Sodium Chloride 1,000 ml @ 75 mls/hr [id number] IV 02/22/19 12:00 03/24/19 11:59 02/23/19 01:29 Docusate Sodium (Colace) 100 mg TID GT 02/12/19 18:00 03/12/19 08:59 02/22/19 17:55 Fentanyl Citrate 1000 mcg/Sodium Chloride 100 ml @ 0 mls/hr Q24H IV 02/21/19 13:00 02/28/19 12:59 02/23/19 05:35 Fluconazole/ Sodium Chloride 100 ml @ 100 mls/hr Q24H IV 02/20/19 18:00 02/27/19 17:59 02/22/19 17:34 Guaifenesin (Mucinex ER) 600 mg TWICE A DAY ORAL 02/07/19 18:00 03/09/19 08:59 02/22/19 17:56 Hydralazine HCl (Apresoline) 10 mg Q4H PRN IV bp over 165 syst 02/17/19 10:15 03/19/19 10:14 02/19/19 14:45 Hydralazine HCl (Apresoline) 50 mg Q8HR NG 02/22/19 14:00 03/21/19 21:59 02/23/19 05:49 Insulin Aspart (NovoLOG) EVERY 4 HOURS SUBQ 02/15/19 21:00 03/17/19 20:59 02/22/19 22:04 Insulin Detemir (Levemir) 10 units BID SUBQ 02/23/19 09:00 03/22/19 08:59 Isosorbide Dinitrate (Isordil) 20 mg Q6HR NG 02/22/19 12:00 03/15/19 12:59 02/23/19 05:48 Lorazepam (Ativan 2mg/ml 1ml) 2 mg Q2H PRN IV agitation/restlessness 02/19/19 22:00 02/26/19 21:44 02/23/19 03:08 Lorazepam (Ativan) 1 mg Q4H PRN ORAL For Anxiety 02/19/19 15:15 02/26/19 15:14 02/19/19 15:21 Methylprednisolone Sodium Succinate (Solu-MEDROL) 10 mg EVERY 12 HOURS IVP 02/19/19 21:00 03/12/19 20:59 02/22/19 21:31 Metolazone (Zaroxolyn) 10 mg DAILY NG 02/19/19 10:00 03/21/19 09:59 02/22/19 08:48 Metoprolol Tartrate (Lopressor) 100 mg Q12HR ORAL 02/22/19 21:00 03/08/19 20:59 02/22/19 21:32 Midazolam HCl (Versed 2mg/2ml vial) 1 mg Q2H PRN IVP Agitation 02/13/19 08:45 03/15/19 08:44 02/23/19 05:01 Neomycin/ Polymyxin/ Dexamethasone (Maxitrol Opth Oint) 1 applic BEDTIME BOTH EYES 02/18/19 21:00 03/20/19 20:59 02/22/19 21:32 Nitroglycerin (Ntg) 0.4 mg Q5M PRN SL Prn Chest Pain 02/07/19 11:00 03/08/19 17:29 02/08/19 07:42 Ondansetron HCl (Zofran) 4 mg Q6H PRN IVP Nausea & Vomiting 02/07/19 11:15 03/08/19 11:14 02/09/19 00:58 Pantoprazole (Protonix) 40 mg EVERY 12 HOURS IVP 02/22/19 21:00 03/24/19 20:59 02/22/19 21:31 Patient Own Medication (Patient's Own Med) 1 ea BID ORAL 02/07/19 18:00 03/09/19 17:59 02/22/19 17:35 Patient Own Medication (Patient's Own Med) 1 ea Q48H ORAL 02/18/19 09:00 03/20/19 08:59 02/22/19 08:53 Patient Own Medication (Patient's Own Med) 2 ea DAILY ORAL 02/08/19 09:00 03/10/19 08:59 02/22/19 08:53 Piperacillin Sod/ Tazobactam Sod 3.375 gm/Sodium Chloride 110 ml @ 27.5 mls/hr EVERY 8 HOURS IVPB 02/20/19 14:00 02/25/19 13:59 02/23/19 05:49 Polyethylene Glycol (Miralax) 17 gm BEDTIME ORAL 02/08/19 21:00 03/10/19 20:59 02/22/19 21:33 Sennosides (Senokot) 8.6 mg DAILY ORAL 02/13/19 12:00 03/15/19 11:59 02/22/19 08:47 Trimethoprim/ Sulfamethoxazole 25 ml/Dextrose 575 ml @ 383.333 mls/hr [id number] BACTRIM IV 02/20/19 12:00 02/27/19 11:59 02/22/19 23:39 Last 24 Hour Vital Signs Date Time Temp Pulse Resp B/P (MAP) Pulse Ox O2 Delivery O2 Flow Rate FiO2 02/23/19 07:05 72 24 100 Mechanical Ventilator 40 02/23/19 06:55 71 24 40 02/23/19 06:55 71 24 99 Mechanical Ventilator 40 02/23/19 06:35 18 Mechanical Ventilator 40 02/23/19 06:30 73 17 131/65 (87) 99 02/23/19 06:00 75 17 124/72 (89) 96 02/23/19 05:49 131/73 02/23/19 05:48 131/73 02/23/19 05:48 131/73 02/23/19 05:35 16 Mechanical Ventilator 40 02/23/19 05:34 18 Mechanical Ventilator 40 02/23/19 05:30 73 20 131/73 (92) 99 02/23/19 05:06 77 25 40 02/23/19 05:00 74 18 136/67 (90) 96 02/23/19 05:00 18 Mechanical Ventilator 40 02/23/19 04:30 77 25 143/72 (95) 97 02/23/19 04:00 97.2 82 17 141/95 (110) 94 02/23/19 04:00 20 Mechanical Ventilator 40 02/23/19 04:00 77 02/23/19 04:00 Mechanical Ventilator Mechanical Ventilator 02/23/19 04:00 40 02/23/19 03:30 73 23 123/67 (85) 96 02/23/19 03:00 69 23 119/59 (79) 96 02/23/19 03:00 18 Mechanical Ventilator 40 02/23/19 02:58 78 24 100 Mechanical Ventilator 40 02/23/19 02:48 72 24 97 Mechanical Ventilator 40 02/23/19 02:43 78 26 40 02/23/19 02:30 72 24 134/62 (86) 97 02/23/19 02:00 25 Mechanical Ventilator 40 02/23/19 02:00 79 24 156/74 (101) 94 02/23/19 01:30 69 24 110/56 (74) 94 02/23/19 01:20 68 24 40 02/23/19 01:00 71 24 121/59 (79) 95 02/23/19 01:00 22 Mechanical Ventilator 40 02/23/19 00:30 23 Mechanical Ventilator 40 02/23/19 00:30 76 15 91/68 (76) 95 02/23/19 00:00 97.8 71 13 122/68 (86) 95 02/23/19 00:00 18 Mechanical Ventilator 40 02/23/19 00:00 Mechanical Ventilator Mechanical Ventilator 02/22/19 23:41 135/66 02/22/19 23:41 135/66 02/22/19 23:30 70 24 127/63 (84) 98 02/22/19 23:30 20 Mechanical Ventilator 40 02/22/19 23:15 73 24 100 Mechanical Ventilator 40 02/22/19 23:00 69 22 120/56 (77) 99 02/22/19 22:49 67 24 40 02/22/19 22:48 67 24 98 Mechanical Ventilator 40 02/22/19 22:30 18 Mechanical Ventilator 40 02/22/19 22:30 69 23 126/66 (86) 98 02/22/19 22:00 73 14 132/70 (90) 98 02/22/19 21:32 71 120/58 02/22/19 21:32 120/58 02/22/19 21:30 20 Mechanical Ventilator 40 02/22/19 21:30 71 23 120/54 (76) 100 02/22/19 21:00 70 24 119/60 (79) 100 02/22/19 20:55 69 24 40 02/22/19 20:30 19 Mechanical Ventilator 40 02/22/19 20:30 71 23 125/61 (82) 100 02/22/19 20:00 73 02/22/19 20:00 Mechanical Ventilator Mechanical Ventilator 02/22/19 20:00 40 02/22/19 20:00 97.5 78 25 136/67 (90) 97 02/22/19 19:30 74 24 124/60 (81) 98 02/22/19 19:30 18 Mechanical Ventilator 40 02/22/19 19:13 78 24 98 Mechanical Ventilator 40 02/22/19 19:00 98.2 02/22/19 19:00 75 24 136/64 (88) 98 02/22/19 18:53 74 24 40 02/22/19 18:52 75 22 100 Mechanical Ventilator 40 02/22/19 18:30 71 19 127/60 (82) 97 02/22/19 18:30 24 Mechanical Ventilator 40 02/22/19 18:00 71 16 130/66 (87) 96 02/22/19 18:00 24 Mechanical Ventilator 40 02/22/19 17:56 131/65 02/22/19 17:56 131/65 02/22/19 17:30 72 23 131/65 (87) 97 02/22/19 17:00 70 23 137/65 (89) 97 02/22/19 17:00 24 Mechanical Ventilator 40 02/22/19 16:46 66 24 40 02/22/19 16:30 68 24 126/61 (82) 94 02/22/19 16:00 Mechanical Ventilator Mechanical Ventilator 02/22/19 16:00 70 02/22/19 16:00 40 02/22/19 16:00 24 Mechanical Ventilator 40 02/22/19 16:00 98.0 69 24 120/50 (73) 96 02/22/19 15:30 75 24 135/57 (83) 97 02/22/19 15:01 82 25 40 02/22/19 15:00 28 Mechanical Ventilator 40 02/22/19 15:00 79 24 148/90 (109) 98 02/22/19 14:53 77 24 100 Mechanical Ventilator 40 02/22/19 14:48 85 24 98 Mechanical Ventilator 40 02/22/19 14:36 137/72 02/22/19 14:30 85 24 137/72 (93) 99 02/22/19 14:00 24 Mechanical Ventilator 40 02/22/19 14:00 73 24 139/67 (91) 97 02/22/19 13:45 72 24 137/75 (95) 97 02/22/19 13:30 72 24 139/67 (91) 97 02/22/19 13:15 72 24 131/73 (92) 97 02/22/19 13:00 72 24 140/68 (92) 95 02/22/19 13:00 24 Mechanical Ventilator 40 02/22/19 12:52 140/72 02/22/19 12:52 140/72 02/22/19 12:45 73 21 139/65 (89) 96 02/22/19 12:40 71 28 40 02/22/19 12:30 73 22 140/72 (94) 97 02/22/19 12:15 73 21 143/66 (91) 96 02/22/19 12:00 98.1 74 22 136/64 (88) 96 02/22/19 12:00 Mechanical Ventilator Mechanical Ventilator 02/22/19 12:00 21 Mechanical Ventilator 40 02/22/19 12:00 75 02/22/19 12:00 40 02/22/19 11:45 75 23 136/61 (86) 96 02/22/19 11:30 77 21 138/63 (88) 96 02/22/19 11:15 79 22 138/63 (88) 94 02/22/19 11:00 98.1 84 23 166/79 (108) 93 02/22/19 11:00 29 Non-Rebreather 40 02/22/19 10:51 29 Mechanical Ventilator 40 02/22/19 10:50 24 Mechanical Ventilator 40 02/22/19 10:45 97.6 73 23 121/59 (79) 97 02/22/19 10:43 73 27 99 Mechanical Ventilator 40 02/22/19 10:42 73 28 40 02/22/19 10:33 73 24 96 Mechanical Ventilator 40 02/22/19 10:30 73 23 121/59 (79) 97 02/22/19 10:00 24 Mechanical Ventilator 40 02/22/19 10:00 76 23 114/56 (75) 96 02/22/19 09:30 82 23 113/59 (77) 99 02/22/19 09:23 25 Mechanical Ventilator 40 02/22/19 09:00 91 24 135/64 (87) 88 02/22/19 09:00 28 Mechanical Ventilator 40 02/22/19 08:48 96 141/62 02/22/19 08:48 96 141/62 02/22/19 08:38 81 27 40 60 02/22/19 08:30 85 23 141/62 (88) 97 02/22/19 08:00 Mechanical Ventilator Mechanical Ventilator 02/22/19 08:00 98.5 76 28 128/56 (80) 96 02/22/19 08:00 40 02/22/19 08:00 28 Mechanical Ventilator 40 02/22/19 08:00 80 02/22/19 07:08 76 24 100 Mechanical Ventilator 40 02/22/19 07:02 73 27 40 60 02/22/19 07:01 74 25 97 Mechanical Ventilator 40 02/22/19 07:00 74 21 117/59 (78) 97 02/22/19 07:00 18 Mechanical Ventilator 40 02/22/19 06:30 74 22 117/55 (75) 97 02/22/19 06:00 18 Mechanical Ventilator 40 02/22/19 06:00 75 22 119/54 (75) 96 02/22/19 05:42 130/59 02/22/19 05:42 130/59 02/22/19 05:42 130/59 02/22/19 05:30 77 21 130/59 (82) 96 02/22/19 05:18 74 27 40 60 02/22/19 05:00 25 Mechanical Ventilator 40 02/22/19 05:00 74 26 113/56 (75) 100 02/22/19 04:30 77 24 119/53 (75) 100 02/22/19 04:00 98.5 78 18 125/63 (83) 99 02/22/19 04:00 83 02/22/19 04:00 22 Mechanical Ventilator 40 02/22/19 04:00 Mechanical Ventilator 02/22/19 04:00 40 02/22/19 03:30 79 24 125/63 (83) 98 02/22/19 03:23 78 24 100 Mechanical Ventilator 40 02/22/19 03:13 79 28 98 Mechanical Ventilator 40 02/22/19 03:11 79 28 40 60 02/22/19 03:00 23 Mechanical Ventilator 40 02/22/19 03:00 77 8 116/58 (77) 02/22/19 02:30 78 25 121/61 (81) 99 02/22/19 02:00 76 22 120/63 (82) 100 02/22/19 01:59 21 Mechanical Ventilator 40 02/22/19 01:58 28 Mechanical Ventilator 40 02/22/19 01:30 75 24 123/59 (80) 99 02/22/19 01:00 26 Mechanical Ventilator 40 02/22/19 01:00 77 24 123/59 (80) 97 02/22/19 00:55 79 24 40 60 7/4/19 00:30 86 30 138/69 (92) 98 02/22/19 00:00 Mechanical Ventilator 02/22/19 00:00 27 Mechanical Ventilator 40 02/22/19 00:00 97.6 87 34 135/57 (83) 94 02/21/19 23:47 148/64 02/21/19 23:47 148/64 02/21/19 23:30 84 25 148/64 (92) 92 02/21/19 23:01 76 24 100 Mechanical Ventilator 40 02/21/19 23:00 76 25 138/63 (88) 96 02/21/19 23:00 28 Mechanical Ventilator 60 02/21/19 22:50 25 Mechanical Ventilator 60 02/21/19 22:47 77 28 100 Mechanical Ventilator 40 02/21/19 22:46 77 28 40 60 02/21/19 22:40 27 Mechanical Ventilator 60 02/21/19 22:30 77 21 135/58 (83) 100 02/21/19 22:30 26 Mechanical Ventilator 60 02/21/19 22:20 26 Mechanical Ventilator 60 02/21/19 22:10 26 Mechanical Ventilator 60 02/21/19 22:00 27 Mechanical Ventilator 60 02/21/19 22:00 85 20 133/61 (85) 100 02/21/19 21:39 87 143/81 02/21/19 21:38 143/62 02/21/19 21:30 87 19 143/62 (89) 99 02/21/19 21:00 26 Mechanical Ventilator 60 02/21/19 21:00 87 20 138/62 (87) 99 02/21/19 20:33 82 24 50 60 02/21/19 20:30 83 23 133/61 (85) 100 02/21/19 20:00 Mechanical Ventilator 02/21/19 20:00 99.7 85 10 131/58 (82) 100 02/21/19 20:00 87 02/21/19 20:00 25 Mechanical Ventilator 60 02/21/19 20:00 60 02/21/19 19:45 86 24 100 Mechanical Ventilator 50 02/21/19 19:30 88 25 131/60 (83) 100 02/21/19 19:25 86 25 50 60 02/21/19 19:25 86 25 100 Mechanical Ventilator 50 02/21/19 19:00 92 32 134/56 (82) 98 02/21/19 18:34 152/65 02/21/19 18:33 152/65 02/21/19 18:30 94 21 152/65 (94) 97 02/21/19 18:00 93 33 151/61 (91) 95 02/21/19 17:30 93 27 140/69 (92) 97 02/21/19 17:00 82 24 60 02/21/19 17:00 86 28 134/66 (88) 100 02/21/19 17:00 26 Mechanical Ventilator 60 02/21/19 16:00 60 02/21/19 16:00 92 02/21/19 16:00 99.5 92 25 141/71 (94) 99 02/21/19 16:00 Mechanical Ventilator 02/21/19 16:00 24 Mechanical Ventilator 60 02/21/19 15:53 156/77 02/21/19 15:14 110 36 100 Mechanical Ventilator 60 02/21/19 15:10 100 33 60 02/21/19 15:00 Mechanical Ventilator 60 02/21/19 15:00 100 34 100 Mechanical Ventilator 60 02/21/19 15:00 92 25 156/77 (103) 99 02/21/19 14:30 91 28 145/72 (96) 99 02/21/19 14:00 91 28 145/70 (95) 99 02/21/19 14:00 Mechanical Ventilator 60 02/21/19 13:30 95 27 147/70 (95) 99 02/21/19 13:04 Mechanical Ventilator 60 02/21/19 13:02 94 33 60 02/21/19 13:00 94 33 138/72 (94) 99 02/21/19 12:59 Mechanical Ventilator 60 02/21/19 12:54 Mechanical Ventilator 60 02/21/19 12:49 Mechanical Ventilator 60 02/21/19 12:44 35 Mechanical Ventilator 60 02/21/19 12:36 148/72 02/21/19 12:36 148/72 02/21/19 12:00 96 02/21/19 12:00 Mechanical Ventilator 02/21/19 12:00 99.9 97 34 148/72 (97) 99 02/21/19 12:00 60 02/21/19 11:00 110 38 60 02/21/19 11:00 104 24 139/68 (91) 99 7/3/19 10:28 109 145/65 02/21/19 10:27 108 145/65 02/21/19 10:20 109 30 100 Mechanical Ventilator 60 02/21/19 10:10 109 30 100 Mechanical Ventilator 60 02/21/19 10:00 108 27 145/65 (91) 100 02/21/19 09:22 107 30 60 02/21/19 09:00 105 26 141/64 (89) 100 02/21/19 08:00 60 02/21/19 08:00 Mechanical Ventilator 02/21/19 08:00 108 02/21/19 08:00 99.4 106 29 150/58 (88) 99 Intake and Output 02/22/19 02/23/19 18:59 06:59 Intake Total 2085.750 ml 1305.0 ml Output Total 1380 ml 1175 ml Balance 705.750 ml 130.0 ml Free Water 10 ml IV Total 1880.750 ml 1245.0 ml Tube Feeding 15 ml Other 180 ml 60 ml Output Urine Total 1150 ml 1175 ml Stool Total 50 ml Gastric Drainage Total 180 ml Labs Test 02/20/19 07:47 02/20/19 14:30 02/20/19 16:30 02/20/19 18:45 Arterial Blood pH 7.393 (7.350-7.450) 7.126 (7.350-7.450) 7.368 (7.350-7.450) Arterial Blood Partial Pressure CO2 38.8 mmHg (35.0-45.0) 82.4 mmHg (35.0-45.0) 43.1 mmHg (35.0-45.0) Arterial Blood Partial Pressure O2 104.4 mmHg (75.0-100.0) 71.4 mmHg (75.0-100.0) 245.8 mmHg (75.0-100.0) Arterial Blood HCO3 23.1 mmol/L (22.0-26.0) 26.6 mmol/L (22.0-26.0) 24.2 mmol/L (22.0-26.0) Arterial Blood Oxygen Saturation 97.0 % (95-100) 86.7 % (95-100) 99.0 % (95-100) Arterial Blood Base Excess -1.6 (-2-2) -3.5 (-2-2) -1.1 (-2-2) Benny Test Positive Positive Positive White Blood Count 12.7 K/UL (4.8-10.8) Red Blood Count 2.94 M/UL (4.70-6.10) Hemoglobin 8.1 G/DL (14.2-18.0) Hematocrit 25.2 % (42.0-52.0) Mean Corpuscular Volume 86 FL (80-99) Mean Corpuscular Hemoglobin 27.6 PG (27.0-31.0) Mean Corpuscular Hemoglobin Concent 32.3 G/DL (32.0-36.0) Red Cell Distribution Width 16.4 % (11.6-14.8) Platelet Count 201 K/UL (150-450) Mean Platelet Volume 5.5 FL (6.5-10.1) Neutrophils (%) (Auto) 91.4 % (45.0-75.0) Lymphocytes (%) (Auto) 3.9 % (20.0-45.0) Monocytes (%) (Auto) 4.4 % (1.0-10.0) Eosinophils (%) (Auto) 0.0 % (0.0-3.0) Basophils (%) (Auto) 0.3 % (0.0-2.0) Sodium Level 138 MMOL/L (136-145) Potassium Level 4.7 MMOL/L (3.5-5.1) Chloride Level 103 MMOL/L (98-107) Carbon Dioxide Level 23 MMOL/L (21-32) Anion Gap 12 mmol/L (5-15) Blood Urea Nitrogen 59 mg/dL (7-18) Creatinine 2.3 MG/DL (0.55-1.30) Estimat Glomerular Filtration Rate 29.2 mL/min (>60) Glucose Level 121 MG/DL (74-106) Calcium Level 8.2 MG/DL (8.5-10.1) Total Bilirubin 0.6 MG/DL (0.2-1.0) Aspartate Amino Transf (AST/SGOT) 92 U/L (15-37) Alanine Aminotransferase (ALT/SGPT) 71 U/L (12-78) Alkaline Phosphatase 106 U/L (46-116) Total Protein 5.0 G/DL (6.4-8.2) Albumin 2.7 G/DL (3.4-5.0) Globulin 2.3 g/dL Albumin/Globulin Ratio 1.2 (1.0-2.7) Test 02/21/19 07:30 02/21/19 10:30 02/21/19 19:50 02/22/19 04:36 White Blood Count 10.7 K/UL (4.8-10.8) 7.2 K/UL (4.8-10.8) Red Blood Count 2.78 M/UL (4.70-6.10) 2.36 M/UL (4.70-6.10) Hemoglobin 7.8 G/DL (14.2-18.0) 6.7 G/DL (14.2-18.0) Hematocrit 24.1 % (42.0-52.0) 20.6 % (42.0-52.0) Mean Corpuscular Volume 87 FL (80-99) 87 FL (80-99) Mean Corpuscular Hemoglobin 28.2 PG (27.0-31.0) 28.3 PG (27.0-31.0) Mean Corpuscular Hemoglobin Concent 32.5 G/DL (32.0-36.0) 32.5 G/DL (32.0-36.0) Red Cell Distribution Width 17.7 % (11.6-14.8) 17.6 % (11.6-14.8) Platelet Count 188 K/UL (150-450) 150 K/UL (150-450) Mean Platelet Volume 5.8 FL (6.5-10.1) 6.4 FL (6.5-10.1) Neutrophils (%) (Auto) % (45.0-75.0) % (45.0-75.0) Lymphocytes (%) (Auto) % (20.0-45.0) % (20.0-45.0) Monocytes (%) (Auto) % (1.0-10.0) % (1.0-10.0) Eosinophils (%) (Auto) % (0.0-3.0) % (0.0-3.0) Basophils (%) (Auto) % (0.0-2.0) % (0.0-2.0) Differential Total Cells Counted 100 100 Neutrophils % (Manual) 90 % (45-75) 92 % (45-75) Lymphocytes % (Manual) 8 % (20-45) 4 % (20-45) Monocytes % (Manual) 2 % (1-10) 4 % (1-10) Eosinophils % (Manual) 0 % (0-3) 0 % (0-3) Basophils % (Manual) 0 % (0-2) 0 % (0-2) Band Neutrophils 0 % (0-8) 0 % (0-8) Platelet Estimate Adequate Adequate Platelet Morphology Normal Normal Red Blood Cell Morphology Normal Prothrombin Time 12.0 SEC (9.30-11.50) Prothromb Time International Ratio 1.1 (0.9-1.1) Fibrinogen 472 mg/dL (200-400) D-Dimer 0.58 mg/L FEU (0.00-0.49) Sodium Level 135 MMOL/L (136-145) 139 MMOL/L (136-145) Potassium Level 4.3 MMOL/L (3.5-5.1) 4.5 MMOL/L (3.5-5.1) Chloride Level 100 MMOL/L (98-107) 104 MMOL/L (98-107) Carbon Dioxide Level 24 MMOL/L (21-32) 25 MMOL/L (21-32) Anion Gap 11 mmol/L (5-15) 10 mmol/L (5-15) Blood Urea Nitrogen 54 mg/dL (7-18) 55 mg/dL (7-18) Creatinine 2.4 MG/DL (0.55-1.30) 2.7 MG/DL (0.55-1.30) Estimat Glomerular Filtration Rate 27.8 mL/min (>60) 24.3 mL/min (>60) Glucose Level 152 MG/DL (74-106) 151 MG/DL (74-106) Calcium Level 8.1 MG/DL (8.5-10.1) 7.9 MG/DL (8.5-10.1) Phosphorus Level 3.6 MG/DL (2.5-4.9) 4.1 MG/DL (2.5-4.9) Magnesium Level 1.8 MG/DL (1.8-2.4) 1.8 MG/DL (1.8-2.4) Total Bilirubin 0.7 MG/DL (0.2-1.0) 0.5 MG/DL (0.2-1.0) Aspartate Amino Transf (AST/SGOT) 96 U/L (15-37) 55 U/L (15-37) Alanine Aminotransferase (ALT/SGPT) 83 U/L (12-78) 65 U/L (12-78) Alkaline Phosphatase 103 U/L (46-116) 97 U/L (46-116) C-Reactive Protein, Quantitative 12.6 mg/dL (0.00-0.90) 13.9 mg/dL (0.00-0.90) Pro-B-Type Natriuretic Peptide 03096 pg/mL (0-125) 27379 pg/mL (0-125) Total Protein 5.5 G/DL (6.4-8.2) 5.3 G/DL (6.4-8.2) Albumin 2.5 G/DL (3.4-5.0) 2.1 G/DL (3.4-5.0) Globulin 3.0 g/dL 3.2 g/dL Albumin/Globulin Ratio 0.8 (1.0-2.7) 0.7 (1.0-2.7) Vancomycin Level Trough 17.9 ug/mL (5.0-12.0) Hypochromasia 4+ Anisocytosis 1+ Spherocytes 3+ Uric Acid 3.6 MG/DL (2.6-7.2) Test 02/22/19 17:30 02/23/19 04:30 White Blood Count 7.5 K/UL (4.8-10.8) Red Blood Count 3.18 M/UL (4.70-6.10) Hemoglobin 9.2 G/DL (14.2-18.0) Hematocrit 27.0 % (42.0-52.0) Mean Corpuscular Volume 85 FL (80-99) Mean Corpuscular Hemoglobin 29.0 PG (27.0-31.0) Mean Corpuscular Hemoglobin Concent 34.2 G/DL (32.0-36.0) Red Cell Distribution Width 15.5 % (11.6-14.8) Platelet Count 150 K/UL (150-450) Mean Platelet Volume 6.2 FL (6.5-10.1) Neutrophils (%) (Auto) 86.9 % (45.0-75.0) Lymphocytes (%) (Auto) 6.3 % (20.0-45.0) Monocytes (%) (Auto) 6.3 % (1.0-10.0) Eosinophils (%) (Auto) 0.0 % (0.0-3.0) Basophils (%) (Auto) 0.5 % (0.0-2.0) Sodium Level 135 MMOL/L (136-145) Potassium Level 4.5 MMOL/L (3.5-5.1) Chloride Level 100 MMOL/L (98-107) Carbon Dioxide Level 26 MMOL/L (21-32) Anion Gap 10 mmol/L (5-15) Blood Urea Nitrogen 58 mg/dL (7-18) Creatinine 2.6 MG/DL (0.55-1.30) Estimat Glomerular Filtration Rate 25.4 mL/min (>60) Glucose Level 93 MG/DL (74-106) Calcium Level 8.0 MG/DL (8.5-10.1) Height (Feet): 6 Height (Inches): 0.00 Weight (Pounds): 274 Objective Objective PHYSICAL EXAMINATION: GENERAL: NAD, Sedated VITAL SIGNS: Have been reviewed. HEAD AND NECK: Shows no JVD. NG+ TRACH+ LUNGS: Coarse rhonchi. CARDIOVASCULAR: Shows regular S1 and S2 with no gallop or murmur. ABDOMEN: Soft, large + BS EXTREMITIES: No pitting edema. + Daniela Monson NP Feb 23, 2019 07:15
--- NOTE | 2019-02-23 07:23 | NUR ---
HAND-OFF: Report given to Suze Tang RN. Endorsed plan of care.
[2019-02-23] MEDS: SULFAMETHOXAZOLE IV SCH ×3 (08:31→23:39)
[2019-02-23] MEDS: TRIMETHOPRIM IV SCH ×3 (08:31→23:39)
[2019-02-23] MEDS: D5W IV SCH ×3 (08:31→23:39)
[2019-02-23] MEDS: RALTEGRAVIR 400 MG ORAL SCH ×2 (09:18→17:32)
[2019-02-23] MEDS: ETRAVIRINE 200 MG ORAL SCH (09:19)
[2019-02-23] MEDS: Docusate 100mg/10ml Liq GT SCH ×3 (09:19→17:31)
[2019-02-23] MEDS: Pantoprazole Inj IVP SCH ×2 (09:19→20:34)
[2019-02-23] MEDS: Solu-MEDROL 40mg Inj IVP SCH ×2 (09:19→20:34)
[2019-02-23] MEDS: guaiFENesin ER 600mg tab ORAL SCH ×2 (09:20→17:32)
[2019-02-23] MEDS: Sennosides 8.6mg tab ORAL SCH (09:20)
--- NOTE | 2019-02-23 10:40 | NUR ---
Suze Paredes RN witnessed my waste of fentanyl. Less than 1mL remaining in bag.
[2019-02-23] MEDS: Levemir Flexpen SUBQ SCH ×2 (10:43→17:35)
--- NOTE | 2019-02-23 10:44 | NUR ---
NURSE NOTES: only 5 units of Levemir administered per the order node. Patient NPO. Levemir administered late. Brought up late from pharmacy.
--- NOTE | 2019-02-23 11:45 | Cardiac Electrophysiology PN ---
Assessment/Plan Assessment/Plan 1. Non-ST elevation myocardial infarction with peak troponin of more than 10, down to 3.[address]-T wave abnormalities. Continue Lipitor, Imdur and metoprolol Hold off on Cardiac catheterization for now 2. Hypertension. Now on metoprolol 100 bid, Isordil 20 q6 and hydralazine 50 q 8 hr 3. Respiratory failure due to Multilobar Pneumonia. Extubated 02/19/19. Reintubated 02/20/19 Likely needs Tracheostomy 4. Hyperlipidemia. On Lipitor. 5. Human immunodeficiency virus. On anti-retroviral therapy with undetectable viral load. 6. ARF Cr 3.5. 7. Bleeding from ETT and NG tube. S/P PRBC. Off Aspirin and LOvenox DW RN Subjective Subjective In ICU on the vent and fentanyl drip 200 mcg. Less blood from ETT suction as NG suction. S/P PRBC 2 units yesterday Objective Last 24 Hour Vital Signs Date Time Temp Pulse Resp B/P (MAP) Pulse Ox O2 Delivery O2 Flow Rate FiO2 02/23/19 11:33 66 24 99 Mechanical Ventilator 40 02/23/19 11:23 63 24 97 Mechanical Ventilator 40 02/23/19 11:23 63 24 40 02/23/19 10:39 28 Mechanical Ventilator 40 02/23/19 09:20 74 134/66 02/23/19 09:19 73 134/72 02/23/19 08:55 73 28 40 02/23/19 08:00 73 02/23/19 08:00 40 02/23/19 08:00 Mechanical Ventilator Mechanical Ventilator 02/23/19 07:05 72 24 100 Mechanical Ventilator 40 02/23/19 07:00 73 23 123/66 (85) 100 02/23/19 07:00 24 Mechanical Ventilator 40 02/23/19 06:55 71 24 40 02/23/19 06:55 71 24 99 Mechanical Ventilator 40 02/23/19 06:35 18 Mechanical Ventilator 40 02/23/19 06:30 73 17 131/65 (87) 99 02/23/19 06:00 75 17 124/72 (89) 96 02/23/19 05:49 131/73 02/23/19 05:48 131/73 02/23/19 05:48 131/73 02/23/19 05:35 16 Mechanical Ventilator 40 02/23/19 05:34 18 Mechanical Ventilator 40 02/23/19 05:30 73 20 131/73 (92) 99 02/23/19 05:06 77 25 40 02/23/19 05:00 74 18 136/67 (90) 96 02/23/19 05:00 18 Mechanical Ventilator 40 02/23/19 04:30 77 25 143/72 (95) 97 02/23/19 04:00 97.2 82 17 141/95 (110) 94 02/23/19 04:00 20 Mechanical Ventilator 40 02/23/19 04:00 77 02/23/19 04:00 Mechanical Ventilator Mechanical Ventilator 02/23/19 04:00 40 02/23/19 03:30 73 23 123/67 (85) 96 02/23/19 03:00 69 23 119/59 (79) 96 02/23/19 03:00 18 Mechanical Ventilator 40 02/23/19 02:58 78 24 100 Mechanical Ventilator 40 02/23/19 02:48 72 24 97 Mechanical Ventilator 40 02/23/19 02:43 78 26 40 02/23/19 02:30 72 24 134/62 (86) 97 02/23/19 02:00 25 Mechanical Ventilator 40 02/23/19 02:00 79 24 156/74 (101) 94 02/23/19 01:30 69 24 110/56 (74) 94 02/23/19 01:20 68 24 40 02/23/19 01:00 71 24 121/59 (79) 95 02/23/19 01:00 22 Mechanical Ventilator 40 02/23/19 00:30 23 Mechanical Ventilator 40 02/23/19 00:30 76 15 91/68 (76) 95 02/23/19 00:00 97.8 71 13 122/68 (86) 95 02/23/19 00:00 18 Mechanical Ventilator 40 02/23/19 00:00 Mechanical Ventilator Mechanical Ventilator 02/22/19 23:41 135/66 02/22/19 23:41 135/66 02/22/19 23:30 70 24 127/63 (84) 98 02/22/19 23:30 20 Mechanical Ventilator 40 02/22/19 23:15 73 24 100 Mechanical Ventilator 40 02/22/19 23:00 69 22 120/56 (77) 99 02/22/19 22:49 67 24 40 02/22/19 22:48 67 24 98 Mechanical Ventilator 40 02/22/19 22:30 18 Mechanical Ventilator 40 02/22/19 22:30 69 23 126/66 (86) 98 02/22/19 22:00 73 14 132/70 (90) 98 02/22/19 21:32 71 120/58 02/22/19 21:32 120/58 02/22/19 21:30 20 Mechanical Ventilator 40 02/22/19 21:30 71 23 120/54 (76) 100 02/22/19 21:00 70 24 119/60 (79) 100 02/22/19 20:55 69 24 40 02/22/19 20:30 19 Mechanical Ventilator 40 02/22/19 20:30 71 23 125/61 (82) 100 02/22/19 20:00 73 02/22/19 20:00 Mechanical Ventilator Mechanical Ventilator 02/22/19 20:00 40 02/22/19 20:00 97.5 78 25 136/67 (90) 97 02/22/19 19:30 74 24 124/60 (81) 98 02/22/19 19:30 18 Mechanical Ventilator 40 02/22/19 19:13 78 24 98 Mechanical Ventilator 40 02/22/19 19:00 98.2 02/22/19 19:00 75 24 136/64 (88) 98 02/22/19 18:53 74 24 40 02/22/19 18:52 75 22 100 Mechanical Ventilator 40 02/22/19 18:30 71 19 127/60 (82) 97 02/22/19 18:30 24 Mechanical Ventilator 40 02/22/19 18:00 71 16 130/66 (87) 96 02/22/19 18:00 24 Mechanical Ventilator 40 02/22/19 17:56 131/65 02/22/19 17:56 131/65 02/22/19 17:30 72 23 131/65 (87) 97 02/22/19 17:00 70 23 137/65 (89) 97 02/22/19 17:00 24 Mechanical Ventilator 40 02/22/19 16:46 66 24 40 02/22/19 16:30 68 24 126/61 (82) 94 02/22/19 16:00 Mechanical Ventilator Mechanical Ventilator 02/22/19 16:00 70 02/22/19 16:00 40 02/22/19 16:00 24 Mechanical Ventilator 40 02/22/19 16:00 98.0 69 24 120/50 (73) 96 02/22/19 15:30 75 24 135/57 (83) 97 02/22/19 15:01 82 25 40 02/22/19 15:00 28 Mechanical Ventilator 40 02/22/19 15:00 79 24 148/90 (109) 98 02/22/19 14:53 77 24 100 Mechanical Ventilator 40 02/22/19 14:48 85 24 98 Mechanical Ventilator 40 02/22/19 14:36 137/72 02/22/19 14:30 85 24 137/72 (93) 99 02/22/19 14:00 24 Mechanical Ventilator 40 02/22/19 14:00 73 24 139/67 (91) 97 02/22/19 13:45 72 24 137/75 (95) 97 02/22/19 13:30 72 24 139/67 (91) 97 02/22/19 13:15 72 24 131/73 (92) 97 02/22/19 13:00 72 24 140/68 (92) 95 02/22/19 13:00 24 Mechanical Ventilator 40 02/22/19 12:52 140/72 02/22/19 12:52 140/72 02/22/19 12:45 73 21 139/65 (89) 96 02/22/19 12:40 71 28 40 02/22/19 12:30 73 22 140/72 (94) 97 02/22/19 12:15 73 21 143/66 (91) 96 02/22/19 12:00 98.1 74 22 136/64 (88) 96 02/22/19 12:00 Mechanical Ventilator Mechanical Ventilator 02/22/19 12:00 21 Mechanical Ventilator 40 02/22/19 12:00 75 02/22/19 12:00 40 02/22/19 11:45 75 23 136/61 (86) 96 Intake and Output 02/22/19 02/23/19 18:59 06:59 Intake Total 2085.750 ml 1305.0 ml Output Total 1380 ml 1300 ml Balance 705.750 ml 5.0 ml Free Water 10 ml IV Total 1880.750 ml 1245.0 ml Tube Feeding 15 ml Other 180 ml 60 ml Output Urine Total 1150 ml 1300 ml Stool Total 50 ml Gastric Drainage Total 180 ml Laboratory Tests Test 02/22/19 17:30 02/23/19 04:30 02/23/19 08:14 White Blood Count 7.5 K/UL (4.8-10.8) Red Blood Count 3.18 M/UL (4.70-6.10) L Hemoglobin 9.2 G/DL (14.2-18.0) #L Hematocrit 27.0 % (42.0-52.0) #L Mean Corpuscular Volume 85 FL (80-99) Mean Corpuscular Hemoglobin 29.0 PG (27.0-31.0) Mean Corpuscular Hemoglobin Concent 34.2 G/DL (32.0-36.0) Red Cell Distribution Width 15.5 % (11.6-14.8) H Platelet Count 150 K/UL (150-450) Mean Platelet Volume 6.2 FL (6.5-10.1) L Neutrophils (%) (Auto) 86.9 % (45.0-75.0) H Lymphocytes (%) (Auto) 6.3 % (20.0-45.0) L Monocytes (%) (Auto) 6.3 % (1.0-10.0) Eosinophils (%) (Auto) 0.0 % (0.0-3.0) Basophils (%) (Auto) 0.5 % (0.0-2.0) Sodium Level 135 MMOL/L (136-145) L Potassium Level 4.5 MMOL/L (3.5-5.1) Chloride Level 100 MMOL/L (98-107) Carbon Dioxide Level 26 MMOL/L (21-32) Anion Gap 10 mmol/L (5-15) Blood Urea Nitrogen 58 mg/dL (7-18) H Creatinine 2.6 MG/DL (0.55-1.30) H Estimat Glomerular Filtration Rate 25.4 mL/min (>60) Glucose Level 93 MG/DL (74-106) Calcium Level 8.0 MG/DL (8.5-10.1) L Arterial Blood pH 7.381 (7.350-7.450) Arterial Blood Partial Pressure CO2 39.0 mmHg (35.0-45.0) Arterial Blood Partial Pressure O2 88.5 mmHg (75.0-100.0) Arterial Blood HCO3 22.6 mmol/L (22.0-26.0) Arterial Blood Oxygen Saturation 95.9 % (95-100) Arterial Blood Base Excess -2.3 (-2-2) L Benny Test Positive Microbiology Date/Time Source Procedure Growth Status 02/20/19 19:00 Blood Blood Culture - Preliminary NO GROWTH AFTER 48 HOURS Resulted 02/20/19 18:45 Blood Blood Culture - Preliminary NO GROWTH AFTER 48 HOURS Resulted 02/20/19 18:45 Sputum Gram Stain - Final Complete 02/20/19 18:45 Sputum Sputum Culture - Final NO GROWTH AFTER 48 HOURS Complete 02/20/19 18:45 Indwelling Cath Urine Culture - Final NO GROWTH AFTER 48 HOURS Complete Objective HEAD AND NECK: No JVD.Orally intubated with dry blood in nose and around mouth LUNGS: Coarse rhonchi. CARDIOVASCULAR: Regular S1 and S2 with no gallop or murmur. ABDOMEN: Soft. EXTREMITIES: No pitting edema. Murray Francois MD Feb 23, 2019 11:45
--- NOTE | 2019-02-23 11:52 | NUR ---
NURSE NOTES: Patient blood pressure out of range or clonidine administration at 126/66. The parameter is not to give below 130 systolic. Will waste this dose.
--- NOTE | 2019-02-23 11:56 | Nephrology Progress Note ---
Assessment/Plan Problem List: (1) ISH (acute kidney injury) Assessment: Cr lowering (2) HIV (human immunodeficiency virus infection) (3) NSTEMI (non-ST elevated myocardial infarction) Assessment: troponin decreasing (4) Hypoxia (5) Anemia (6) Diabetes Assessment Acute Renal failure- Cr leveling- Urine out put is good Acidosis improved Acute respiratory failure- Require intubation and Mechanical Ventilation- Anemia- Elevated troponin / MD HTN DM HIV Antibody + Plan Hold feeding IV protonix NGt suction transfusiosn start IV fluid BP med adjustment ? recheck 2D echo?? UA and urine studies Avoid Nephrotoxics as possible Monitor renal parameters keep BP and BS in check Per orders No HD at this time Kidney RADHA noted adjust BP meds add Isordil Objective Objective Last 24 Hour Vital Signs Date Time Temp Pulse Resp B/P (MAP) Pulse Ox O2 Delivery O2 Flow Rate FiO2 02/23/19 11:51 129/66 02/23/19 11:50 129/66 02/23/19 11:33 66 24 99 Mechanical Ventilator 40 02/23/19 11:23 63 24 97 Mechanical Ventilator 40 02/23/19 11:23 63 24 40 02/23/19 11:00 69 24 150/78 (102) 97 02/23/19 10:39 28 Mechanical Ventilator 40 02/23/19 10:00 65 24 133/70 (91) 97 02/23/19 09:20 74 134/66 02/23/19 09:19 73 134/72 02/23/19 09:00 73 24 134/66 (88) 99 02/23/19 08:55 73 28 40 02/23/19 08:00 73 02/23/19 08:00 98.3 72 24 124/74 (91) 99 02/23/19 08:00 40 02/23/19 08:00 Mechanical Ventilator Mechanical Ventilator 02/23/19 07:05 72 24 100 Mechanical Ventilator 40 02/23/19 07:00 73 23 123/66 (85) 100 02/23/19 07:00 24 Mechanical Ventilator 40 02/23/19 06:55 71 24 40 02/23/19 06:55 71 24 99 Mechanical Ventilator 40 02/23/19 06:35 18 Mechanical Ventilator 40 02/23/19 06:30 73 17 131/65 (87) 99 02/23/19 06:00 75 17 124/72 (89) 96 02/23/19 05:49 131/73 02/23/19 05:48 131/73 02/23/19 05:48 131/73 02/23/19 05:35 16 Mechanical Ventilator 40 02/23/19 05:34 18 Mechanical Ventilator 40 02/23/19 05:30 73 20 131/73 (92) 99 02/23/19 05:06 77 25 40 02/23/19 05:00 74 18 136/67 (90) 96 02/23/19 05:00 18 Mechanical Ventilator 40 02/23/19 04:30 77 25 143/72 (95) 97 02/23/19 04:00 97.2 82 17 141/95 (110) 94 02/23/19 04:00 20 Mechanical Ventilator 40 02/23/19 04:00 77 02/23/19 04:00 Mechanical Ventilator Mechanical Ventilator 02/23/19 04:00 40 02/23/19 03:30 73 23 123/67 (85) 96 02/23/19 03:00 69 23 119/59 (79) 96 02/23/19 03:00 18 Mechanical Ventilator 40 02/23/19 02:58 78 24 100 Mechanical Ventilator 40 02/23/19 02:48 72 24 97 Mechanical Ventilator 40 02/23/19 02:43 78 26 40 02/23/19 02:30 72 24 134/62 (86) 97 02/23/19 02:00 25 Mechanical Ventilator 40 02/23/19 02:00 79 24 156/74 (101) 94 02/23/19 01:30 69 24 110/56 (74) 94 02/23/19 01:20 68 24 40 02/23/19 01:00 71 24 121/59 (79) 95 02/23/19 01:00 22 Mechanical Ventilator 40 02/23/19 00:30 23 Mechanical Ventilator 40 02/23/19 00:30 76 15 91/68 (76) 95 02/23/19 00:00 97.8 71 13 122/68 (86) 95 02/23/19 00:00 18 Mechanical Ventilator 40 02/23/19 00:00 Mechanical Ventilator Mechanical Ventilator 02/22/19 23:41 135/66 02/22/19 23:41 135/66 02/22/19 23:30 70 24 127/63 (84) 98 02/22/19 23:30 20 Mechanical Ventilator 40 02/22/19 23:15 73 24 100 Mechanical Ventilator 40 02/22/19 23:00 69 22 120/56 (77) 99 02/22/19 22:49 67 24 40 02/22/19 22:48 67 24 98 Mechanical Ventilator 40 02/22/19 22:30 18 Mechanical Ventilator 40 02/22/19 22:30 69 23 126/66 (86) 98 02/22/19 22:00 73 14 132/70 (90) 98 02/22/19 21:32 71 120/58 02/22/19 21:32 120/58 02/22/19 21:30 20 Mechanical Ventilator 40 02/22/19 21:30 71 23 120/54 (76) 100 02/22/19 21:00 70 24 119/60 (79) 100 02/22/19 20:55 69 24 40 02/22/19 20:30 19 Mechanical Ventilator 40 02/22/19 20:30 71 23 125/61 (82) 100 02/22/19 20:00 73 02/22/19 20:00 Mechanical Ventilator Mechanical Ventilator 02/22/19 20:00 40 02/22/19 20:00 97.5 78 25 136/67 (90) 97 02/22/19 19:30 74 24 124/60 (81) 98 02/22/19 19:30 18 Mechanical Ventilator 40 02/22/19 19:13 78 24 98 Mechanical Ventilator 40 02/22/19 19:00 98.2 02/22/19 19:00 75 24 136/64 (88) 98 02/22/19 18:53 74 24 40 02/22/19 18:52 75 22 100 Mechanical Ventilator 40 02/22/19 18:30 71 19 127/60 (82) 97 02/22/19 18:30 24 Mechanical Ventilator 40 02/22/19 18:00 71 16 130/66 (87) 96 02/22/19 18:00 24 Mechanical Ventilator 40 02/22/19 17:56 131/65 02/22/19 17:56 131/65 02/22/19 17:30 72 23 131/65 (87) 97 02/22/19 17:00 70 23 137/65 (89) 97 02/22/19 17:00 24 Mechanical Ventilator 40 02/22/19 16:46 66 24 40 7/4/19 16:30 68 24 126/61 (82) 94 02/22/19 16:00 Mechanical Ventilator Mechanical Ventilator 02/22/19 16:00 70 02/22/19 16:00 40 02/22/19 16:00 24 Mechanical Ventilator 40 02/22/19 16:00 98.0 69 24 120/50 (73) 96 02/22/19 15:30 75 24 135/57 (83) 97 02/22/19 15:01 82 25 40 02/22/19 15:00 28 Mechanical Ventilator 40 02/22/19 15:00 79 24 148/90 (109) 98 02/22/19 14:53 77 24 100 Mechanical Ventilator 40 02/22/19 14:48 85 24 98 Mechanical Ventilator 40 02/22/19 14:36 137/72 02/22/19 14:30 85 24 137/72 (93) 99 02/22/19 14:00 24 Mechanical Ventilator 40 02/22/19 14:00 73 24 139/67 (91) 97 02/22/19 13:45 72 24 137/75 (95) 97 02/22/19 13:30 72 24 139/67 (91) 97 02/22/19 13:15 72 24 131/73 (92) 97 02/22/19 13:00 72 24 140/68 (92) 95 02/22/19 13:00 24 Mechanical Ventilator 40 02/22/19 12:52 140/72 02/22/19 12:52 140/72 02/22/19 12:45 73 21 139/65 (89) 96 02/22/19 12:40 71 28 40 02/22/19 12:30 73 22 140/72 (94) 97 02/22/19 12:15 73 21 143/66 (91) 96 02/22/19 12:00 98.1 74 22 136/64 (88) 96 02/22/19 12:00 Mechanical Ventilator Mechanical Ventilator 02/22/19 12:00 21 Mechanical Ventilator 40 02/22/19 12:00 75 02/22/19 12:00 40 Intake and Output 02/22/19 02/23/19 18:59 06:59 Intake Total 2085.750 ml 1305.0 ml Output Total 1380 ml 1300 ml Balance 705.750 ml 5.0 ml Free Water 10 ml IV Total 1880.750 ml 1245.0 ml Tube Feeding 15 ml Other 180 ml 60 ml Output Urine Total 1150 ml 1300 ml Stool Total 50 ml Gastric Drainage Total 180 ml Laboratory Tests 02/22/19 17:30: White Blood Count 7.5, Red Blood Count 3.18L, Hemoglobin 9.2#L, Hematocrit 27.0# L, Mean Corpuscular Volume 85, Mean Corpuscular Hemoglobin 29.0, Mean Corpuscular Hemoglobin Concent 34.2, Red Cell Distribution Width 15.5H, Platelet Count 150, Mean Platelet Volume 6.2L, Neutrophils (%) (Auto) 86.9H, Lymphocytes (%) (Auto) 6.3L, Monocytes (%) (Auto) 6.3, Eosinophils (%) (Auto) 0.0, Basophils (%) (Auto) 0.5 02/23/19 04:30: Sodium Level 135L, Potassium Level 4.5, Chloride Level 100, Carbon Dioxide Level 26, Anion Gap 10, Blood Urea Nitrogen 58H, Creatinine 2.6H, Estimat Glomerular Filtration Rate 25.4, Glucose Level 93, Calcium Level 8.0L 02/23/19 08:14: Arterial Blood pH 7.381, Arterial Blood Partial Pressure CO2 39.0, Arterial Blood Partial Pressure O2 88.5, Arterial Blood HCO3 22.6, Arterial Blood Oxygen Saturation 95.9, Arterial Blood Base Excess -2.3L, Benny Test Positive Height (Feet): 6 Height (Inches): 0.00 Weight (Pounds): 274 General Appearance: no apparent distress EENT: other - vented Cardiovascular: bradycardia Respiratory/Chest: decreased breath sounds Abdomen: distended Mike Mcdonald MD Feb 23, 2019 11:56
--- NOTE | 2019-02-23 12:01 | GI Progress Note ---
Assessment/Plan Problems: (1) Anemia ICD Codes: D64.9 - Anemia, unspecified SNOMED: 060272890 (2) Anxiety ICD Codes: F41.9 - Anxiety disorder, unspecified SNOMED: 86403710 (3) Anemia ICD Codes: D64.9 - Anemia, unspecified SNOMED: 187542183 (4) Uncontrolled type 2 diabetes mellitus with chronic kidney disease ICD Codes: E11.22 - Type 2 diabetes mellitus with diabetic chronic kidney disease; E11.65 - Type 2 diabetes mellitus with hyperglycemia SNOMED: 59906208, 956156465, 072835191 Status: stable Status Narrative Discussed with Dr. Ricketts. Assessment/Plan 1. History of HIV. 2. Hypertension. 3. Vertigo. 4. History of headaches. 5. History of diabetes. 6. Respiratory failure 7. Dysphagia 8. ileus hold NGTF today, cont IVFs OB stool reintubated ppi fu H&H, prn blood transfusion >> 2 units yesterday endoscopy when stable The patient was seen and examined at bedside and all new and available data was reviewed in the patients chart. I agree with the above findings, impression and plan. (Patient seen earlier today. Signature stamp does not reflect patient encounter time.). - Kg Ricketts MD Subjective Subjective limited Objective Last 24 Hour Vital Signs Date Time Temp Pulse Resp B/P (MAP) Pulse Ox O2 Delivery O2 Flow Rate FiO2 02/23/19 11:51 129/66 02/23/19 11:50 129/66 02/23/19 11:33 66 24 99 Mechanical Ventilator 40 02/23/19 11:23 63 24 97 Mechanical Ventilator 40 02/23/19 11:23 63 24 40 02/23/19 11:00 69 24 150/78 (102) 97 02/23/19 10:39 28 Mechanical Ventilator 40 02/23/19 10:00 65 24 133/70 (91) 97 02/23/19 09:20 74 134/66 02/23/19 09:19 73 134/72 02/23/19 09:00 73 24 134/66 (88) 99 02/23/19 08:55 73 28 40 02/23/19 08:00 73 02/23/19 08:00 98.3 72 24 124/74 (91) 99 02/23/19 08:00 40 02/23/19 08:00 Mechanical Ventilator Mechanical Ventilator 02/23/19 07:05 72 24 100 Mechanical Ventilator 40 02/23/19 07:00 73 23 123/66 (85) 100 02/23/19 07:00 24 Mechanical Ventilator 40 02/23/19 06:55 71 24 40 02/23/19 06:55 71 24 99 Mechanical Ventilator 40 02/23/19 06:35 18 Mechanical Ventilator 40 02/23/19 06:30 73 17 131/65 (87) 99 02/23/19 06:00 75 17 124/72 (89) 96 02/23/19 05:49 131/73 02/23/19 05:48 131/73 02/23/19 05:48 131/73 02/23/19 05:35 16 Mechanical Ventilator 40 02/23/19 05:34 18 Mechanical Ventilator 40 02/23/19 05:30 73 20 131/73 (92) 99 02/23/19 05:06 77 25 40 02/23/19 05:00 74 18 136/67 (90) 96 02/23/19 05:00 18 Mechanical Ventilator 40 02/23/19 04:30 77 25 143/72 (95) 97 02/23/19 04:00 97.2 82 17 141/95 (110) 94 02/23/19 04:00 20 Mechanical Ventilator 40 02/23/19 04:00 77 02/23/19 04:00 Mechanical Ventilator Mechanical Ventilator 02/23/19 04:00 40 02/23/19 03:30 73 23 123/67 (85) 96 02/23/19 03:00 69 23 119/59 (79) 96 02/23/19 03:00 18 Mechanical Ventilator 40 02/23/19 02:58 78 24 100 Mechanical Ventilator 40 02/23/19 02:48 72 24 97 Mechanical Ventilator 40 02/23/19 02:43 78 26 40 02/23/19 02:30 72 24 134/62 (86) 97 02/23/19 02:00 25 Mechanical Ventilator 40 02/23/19 02:00 79 24 156/74 (101) 94 02/23/19 01:30 69 24 110/56 (74) 94 02/23/19 01:20 68 24 40 02/23/19 01:00 71 24 121/59 (79) 95 02/23/19 01:00 22 Mechanical Ventilator 40 02/23/19 00:30 23 Mechanical Ventilator 40 02/23/19 00:30 76 15 91/68 (76) 95 02/23/19 00:00 97.8 71 13 122/68 (86) 95 02/23/19 00:00 18 Mechanical Ventilator 40 02/23/19 00:00 Mechanical Ventilator Mechanical Ventilator 02/22/19 23:41 135/66 02/22/19 23:41 135/66 02/22/19 23:30 70 24 127/63 (84) 98 02/22/19 23:30 20 Mechanical Ventilator 40 02/22/19 23:15 73 24 100 Mechanical Ventilator 40 02/22/19 23:00 69 22 120/56 (77) 99 02/22/19 22:49 67 24 40 02/22/19 22:48 67 24 98 Mechanical Ventilator 40 02/22/19 22:30 18 Mechanical Ventilator 40 02/22/19 22:30 69 23 126/66 (86) 98 02/22/19 22:00 73 14 132/70 (90) 98 02/22/19 21:32 71 120/58 02/22/19 21:32 120/58 02/22/19 21:30 20 Mechanical Ventilator 40 02/22/19 21:30 71 23 120/54 (76) 100 02/22/19 21:00 70 24 119/60 (79) 100 02/22/19 20:55 69 24 40 02/22/19 20:30 19 Mechanical Ventilator 40 02/22/19 20:30 71 23 125/61 (82) 100 02/22/19 20:00 73 02/22/19 20:00 Mechanical Ventilator Mechanical Ventilator 02/22/19 20:00 40 02/22/19 20:00 97.5 78 25 136/67 (90) 97 02/22/19 19:30 74 24 124/60 (81) 98 02/22/19 19:30 18 Mechanical Ventilator 40 02/22/19 19:13 78 24 98 Mechanical Ventilator 40 02/22/19 19:00 98.2 02/22/19 19:00 75 24 136/64 (88) 98 02/22/19 18:53 74 24 40 02/22/19 18:52 75 22 100 Mechanical Ventilator 40 02/22/19 18:30 71 19 127/60 (82) 97 02/22/19 18:30 24 Mechanical Ventilator 40 02/22/19 18:00 71 16 130/66 (87) 96 02/22/19 18:00 24 Mechanical Ventilator 40 02/22/19 17:56 131/65 02/22/19 17:56 131/65 02/22/19 17:30 72 23 131/65 (87) 97 02/22/19 17:00 70 23 137/65 (89) 97 02/22/19 17:00 24 Mechanical Ventilator 40 02/22/19 16:46 66 24 40 02/22/19 16:30 68 24 126/61 (82) 94 02/22/19 16:00 Mechanical Ventilator Mechanical Ventilator 02/22/19 16:00 70 02/22/19 16:00 40 02/22/19 16:00 24 Mechanical Ventilator 40 02/22/19 16:00 98.0 69 24 120/50 (73) 96 02/22/19 15:30 75 24 135/57 (83) 97 02/22/19 15:01 82 25 40 02/22/19 15:00 28 Mechanical Ventilator 40 02/22/19 15:00 79 24 148/90 (109) 98 02/22/19 14:53 77 24 100 Mechanical Ventilator 40 02/22/19 14:48 85 24 98 Mechanical Ventilator 40 02/22/19 14:36 137/72 02/22/19 14:30 85 24 137/72 (93) 99 02/22/19 14:00 24 Mechanical Ventilator 40 02/22/19 14:00 73 24 139/67 (91) 97 02/22/19 13:45 72 24 137/75 (95) 97 02/22/19 13:30 72 24 139/67 (91) 97 02/22/19 13:15 72 24 131/73 (92) 97 02/22/19 13:00 72 24 140/68 (92) 95 02/22/19 13:00 24 Mechanical Ventilator 40 02/22/19 12:52 140/72 02/22/19 12:52 140/72 02/22/19 12:45 73 21 139/65 (89) 96 02/22/19 12:40 71 28 40 02/22/19 12:30 73 22 140/72 (94) 97 02/22/19 12:15 73 21 143/66 (91) 96 02/22/19 12:00 98.1 74 22 136/64 (88) 96 02/22/19 12:00 Mechanical Ventilator Mechanical Ventilator 02/22/19 12:00 21 Mechanical Ventilator 40 02/22/19 12:00 75 02/22/19 12:00 40 Intake and Output 02/22/19 02/23/19 18:59 06:59 Intake Total 2085.750 ml 1305.0 ml Output Total 1380 ml 1300 ml Balance 705.750 ml 5.0 ml Free Water 10 ml IV Total 1880.750 ml 1245.0 ml Tube Feeding 15 ml Other 180 ml 60 ml Output Urine Total 1150 ml 1300 ml Stool Total 50 ml Gastric Drainage Total 180 ml Laboratory Tests Test 02/22/19 17:30 02/23/19 04:30 02/23/19 08:14 White Blood Count 7.5 K/UL (4.8-10.8) Red Blood Count 3.18 M/UL (4.70-6.10) L Hemoglobin 9.2 G/DL (14.2-18.0) #L Hematocrit 27.0 % (42.0-52.0) #L Mean Corpuscular Volume 85 FL (80-99) Mean Corpuscular Hemoglobin 29.0 PG (27.0-31.0) Mean Corpuscular Hemoglobin Concent 34.2 G/DL (32.0-36.0) Red Cell Distribution Width 15.5 % (11.6-14.8) H Platelet Count 150 K/UL (150-450) Mean Platelet Volume 6.2 FL (6.5-10.1) L Neutrophils (%) (Auto) 86.9 % (45.0-75.0) H Lymphocytes (%) (Auto) 6.3 % (20.0-45.0) L Monocytes (%) (Auto) 6.3 % (1.0-10.0) Eosinophils (%) (Auto) 0.0 % (0.0-3.0) Basophils (%) (Auto) 0.5 % (0.0-2.0) Sodium Level 135 MMOL/L (136-145) L Potassium Level 4.5 MMOL/L (3.5-5.1) Chloride Level 100 MMOL/L (98-107) Carbon Dioxide Level 26 MMOL/L (21-32) Anion Gap 10 mmol/L (5-15) Blood Urea Nitrogen 58 mg/dL (7-18) H Creatinine 2.6 MG/DL (0.55-1.30) H Estimat Glomerular Filtration Rate 25.4 mL/min (>60) Glucose Level 93 MG/DL (74-106) Calcium Level 8.0 MG/DL (8.5-10.1) L Arterial Blood pH 7.381 (7.350-7.450) Arterial Blood Partial Pressure CO2 39.0 mmHg (35.0-45.0) Arterial Blood Partial Pressure O2 88.5 mmHg (75.0-100.0) Arterial Blood HCO3 22.6 mmol/L (22.0-26.0) Arterial Blood Oxygen Saturation 95.9 % (95-100) Arterial Blood Base Excess -2.3 (-2-2) L Benny Test Positive Height (Feet): 6 Height (Inches): 0.00 Weight (Pounds): 274 General Appearance: no apparent distress, other - sedated Cardiovascular: normal rate Respiratory/Chest: normal breath sounds, no respiratory distress, other - ET Abdominal Exam: normal bowel sounds, non tender, soft, other - NGT Extremities: non-tender Hortencia Zheng NP Feb 23, 2019 12:01
--- NOTE | 2019-02-23 12:39 | Neurology Progress Note ---
Interim History Interim History ROS Limited/Unobtainable: Yes Complaints: AMS Interim History sp transfusion, remains on fentanyl Objective Physical Exam Last Vital Signs Date Time Temp Pulse Resp B/P (MAP) Pulse Ox O2 Delivery O2 Flow Rate FiO2 02/23/19 11:51 129/66 02/23/19 11:33 66 24 99 Mechanical Ventilator 40 02/23/19 08:00 98.3 02/20/19 12:00 15.0 Laboratory Tests Test 02/22/19 17:30 02/23/19 04:30 02/23/19 08:14 White Blood Count 7.5 K/UL (4.8-10.8) Red Blood Count 3.18 M/UL (4.70-6.10) L Hemoglobin 9.2 G/DL (14.2-18.0) #L Hematocrit 27.0 % (42.0-52.0) #L Mean Corpuscular Volume 85 FL (80-99) Mean Corpuscular Hemoglobin 29.0 PG (27.0-31.0) Mean Corpuscular Hemoglobin Concent 34.2 G/DL (32.0-36.0) Red Cell Distribution Width 15.5 % (11.6-14.8) H Platelet Count 150 K/UL (150-450) Mean Platelet Volume 6.2 FL (6.5-10.1) L Neutrophils (%) (Auto) 86.9 % (45.0-75.0) H Lymphocytes (%) (Auto) 6.3 % (20.0-45.0) L Monocytes (%) (Auto) 6.3 % (1.0-10.0) Eosinophils (%) (Auto) 0.0 % (0.0-3.0) Basophils (%) (Auto) 0.5 % (0.0-2.0) Sodium Level 135 MMOL/L (136-145) L Potassium Level 4.5 MMOL/L (3.5-5.1) Chloride Level 100 MMOL/L (98-107) Carbon Dioxide Level 26 MMOL/L (21-32) Anion Gap 10 mmol/L (5-15) Blood Urea Nitrogen 58 mg/dL (7-18) H Creatinine 2.6 MG/DL (0.55-1.30) H Estimat Glomerular Filtration Rate 25.4 mL/min (>60) Glucose Level 93 MG/DL (74-106) Calcium Level 8.0 MG/DL (8.5-10.1) L Arterial Blood pH 7.381 (7.350-7.450) Arterial Blood Partial Pressure CO2 39.0 mmHg (35.0-45.0) Arterial Blood Partial Pressure O2 88.5 mmHg (75.0-100.0) Arterial Blood HCO3 22.6 mmol/L (22.0-26.0) Arterial Blood Oxygen Saturation 95.9 % (95-100) Arterial Blood Base Excess -2.3 (-2-2) L Benny Test Positive General: well developed, well nourished, other Head: normocophalic, other Neck: no rigidity EENT: benign, other Neurologic Exam Mental Status: other Speech: other Language: other Cranial Nerve II: other Cranial Nerves III, IV, : other Cranial Nerve V: other Cranial Nerve VII: other Cranial Nerve VIII: other Cranial Nerve IX: other Cranial Nerve X: other Cranial Nerve XI: other Cranial Nerve XII: other Motor System: other Sensory: other Coordination: other Deep Tendon Reflexes: 0 bicep (L), 0 bicep (R), 0 tricep (L), 0 tricep (R), 0 brachioradialis (L), 0 brachioradialis (R), 0 knee (L), 0 knee (R), 0 ankle (L) , 0 ankle (R) Reflexes: mute plantar (L), mute plantar (R) Stance: other Gait: other Objective he is intubated and sedated. pupils are symmetric and reactive corneals present he withdraws to noxious stimuli without localizing. 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 (33) acute small R pontomedullary and left cerebellar peduncle strokes. 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
--- NOTE | 2019-02-23 13:17 | NUR ---
NURSE NOTES: Patient wide awake and pushing pillows off the bed and trying to cough out bite block. Patent given Ativan 2mg IV to calm anxiety.
--- NOTE | 2019-02-23 13:26 | NUR ---
CASE MANAGEMENT:REVIEW 02/23/2019 SI: MULTILOBAR PNA ACUTE RESPIRATORY FAILURE. NSTEMI. HIV T 98.3 HR 72 RR 24 B/P 124/74 SATS 99% ON MECH VENT FiO2 40 NA 135 BUN 58 CR 2.6 CA 8 ABGs BE -2.3 IS: IVF@100 mL/HR IV SOLUMEDROL Q12H IV DIFLUCAN Q24H IV BACTRIM Q12H IV ZOSYN Q12H FENTANYL GTT VERSED GTT INSULIN SQ Q4HRS ISORDIL NG Q6HRS NORVASC NG QD DUONEB HHN Q4HRS : ICU STATUS
--- NOTE | 2019-02-23 13:31 | NUR ---
NURSE NOTES: Patient remains agitated with RASS of +1 after Ativan 2mg IV. Fentanyl increased to 220mcg/hr at this time. Will continue to monitor and titrate per protocol.
--- NOTE | 2019-02-23 14:17 | Surgery Progress Note ---
Surgery Progress Note Subjective Procedure Performed left femoral temporary Hemodialysis catheter insertion Additional Comments labs slowly improving overall less edema and anasarca on vent support in ICU Objective Last 24 Hour Vital Signs Date Time Temp Pulse Resp B/P (MAP) Pulse Ox O2 Delivery O2 Flow Rate FiO2 02/23/19 13:42 136/68 02/23/19 13:31 25 Mechanical Ventilator 40 02/23/19 12:57 69 29 40 02/23/19 12:00 40 02/23/19 12:00 Mechanical Ventilator Mechanical Ventilator 02/23/19 11:51 129/66 02/23/19 11:50 129/66 02/23/19 11:33 66 24 99 Mechanical Ventilator 40 02/23/19 11:23 63 24 97 Mechanical Ventilator 40 02/23/19 11:23 63 24 40 02/23/19 11:00 69 24 150/78 (102) 97 02/23/19 10:39 28 Mechanical Ventilator 40 02/23/19 10:00 65 24 133/70 (91) 97 02/23/19 09:20 74 134/66 02/23/19 09:19 73 134/72 02/23/19 09:00 73 24 134/66 (88) 99 02/23/19 08:55 73 28 40 02/23/19 08:00 73 02/23/19 08:00 98.3 72 24 124/74 (91) 99 02/23/19 08:00 40 02/23/19 08:00 Mechanical Ventilator Mechanical Ventilator 02/23/19 07:05 72 24 100 Mechanical Ventilator 40 02/23/19 07:00 73 23 123/66 (85) 100 02/23/19 07:00 24 Mechanical Ventilator 40 02/23/19 06:55 71 24 40 02/23/19 06:55 71 24 99 Mechanical Ventilator 40 02/23/19 06:35 18 Mechanical Ventilator 40 02/23/19 06:30 73 17 131/65 (87) 99 02/23/19 06:00 75 17 124/72 (89) 96 02/23/19 05:49 131/73 02/23/19 05:48 131/73 02/23/19 05:48 131/73 02/23/19 05:35 16 Mechanical Ventilator 40 02/23/19 05:34 18 Mechanical Ventilator 40 02/23/19 05:30 73 20 131/73 (92) 99 02/23/19 05:06 77 25 40 02/23/19 05:00 74 18 136/67 (90) 96 02/23/19 05:00 18 Mechanical Ventilator 40 02/23/19 04:30 77 25 143/72 (95) 97 02/23/19 04:00 97.2 82 17 141/95 (110) 94 02/23/19 04:00 20 Mechanical Ventilator 40 02/23/19 04:00 77 02/23/19 04:00 Mechanical Ventilator Mechanical Ventilator 02/23/19 04:00 40 02/23/19 03:30 73 23 123/67 (85) 96 02/23/19 03:00 69 23 119/59 (79) 96 02/23/19 03:00 18 Mechanical Ventilator 40 02/23/19 02:58 78 24 100 Mechanical Ventilator 40 02/23/19 02:48 72 24 97 Mechanical Ventilator 40 02/23/19 02:43 78 26 40 02/23/19 02:30 72 24 134/62 (86) 97 02/23/19 02:00 25 Mechanical Ventilator 40 02/23/19 02:00 79 24 156/74 (101) 94 02/23/19 01:30 69 24 110/56 (74) 94 02/23/19 01:20 68 24 40 02/23/19 01:00 71 24 121/59 (79) 95 02/23/19 01:00 22 Mechanical Ventilator 40 02/23/19 00:30 23 Mechanical Ventilator 40 02/23/19 00:30 76 15 91/68 (76) 95 02/23/19 00:00 97.8 71 13 122/68 (86) 95 02/23/19 00:00 18 Mechanical Ventilator 40 02/23/19 00:00 Mechanical Ventilator Mechanical Ventilator 02/22/19 23:41 135/66 02/22/19 23:41 135/66 02/22/19 23:30 70 24 127/63 (84) 98 02/22/19 23:30 20 Mechanical Ventilator 40 02/22/19 23:15 73 24 100 Mechanical Ventilator 40 02/22/19 23:00 69 22 120/56 (77) 99 02/22/19 22:49 67 24 40 02/22/19 22:48 67 24 98 Mechanical Ventilator 40 02/22/19 22:30 18 Mechanical Ventilator 40 02/22/19 22:30 69 23 126/66 (86) 98 02/22/19 22:00 73 14 132/70 (90) 98 02/22/19 21:32 71 120/58 02/22/19 21:32 120/58 02/22/19 21:30 20 Mechanical Ventilator 40 02/22/19 21:30 71 23 120/54 (76) 100 02/22/19 21:00 70 24 119/60 (79) 100 02/22/19 20:55 69 24 40 02/22/19 20:30 19 Mechanical Ventilator 40 02/22/19 20:30 71 23 125/61 (82) 100 02/22/19 20:00 73 02/22/19 20:00 Mechanical Ventilator Mechanical Ventilator 02/22/19 20:00 40 02/22/19 20:00 97.5 78 25 136/67 (90) 97 02/22/19 19:30 74 24 124/60 (81) 98 02/22/19 19:30 18 Mechanical Ventilator 40 02/22/19 19:13 78 24 98 Mechanical Ventilator 40 02/22/19 19:00 98.2 02/22/19 19:00 75 24 136/64 (88) 98 02/22/19 18:53 74 24 40 02/22/19 18:52 75 22 100 Mechanical Ventilator 40 02/22/19 18:30 71 19 127/60 (82) 97 02/22/19 18:30 24 Mechanical Ventilator 40 02/22/19 18:00 71 16 130/66 (87) 96 02/22/19 18:00 24 Mechanical Ventilator 40 02/22/19 17:56 131/65 02/22/19 17:56 131/65 02/22/19 17:30 72 23 131/65 (87) 97 02/22/19 17:00 70 23 137/65 (89) 97 02/22/19 17:00 24 Mechanical Ventilator 40 02/22/19 16:46 66 24 40 02/22/19 16:30 68 24 126/61 (82) 94 02/22/19 16:00 Mechanical Ventilator Mechanical Ventilator 02/22/19 16:00 70 02/22/19 16:00 40 02/22/19 16:00 24 Mechanical Ventilator 40 02/22/19 16:00 98.0 69 24 120/50 (73) 96 02/22/19 15:30 75 24 135/57 (83) 97 02/22/19 15:01 82 25 40 02/22/19 15:00 28 Mechanical Ventilator 40 02/22/19 15:00 79 24 148/90 (109) 98 02/22/19 14:53 77 24 100 Mechanical Ventilator 40 02/22/19 14:48 85 24 98 Mechanical Ventilator 40 02/22/19 14:36 137/72 02/22/19 14:30 85 24 137/72 (93) 99 I&O Intake and Output 02/22/19 02/23/19 19:00 07:00 Intake Total 2135.750 ml 1315.0 ml Output Total 1330 ml 1350 ml Balance 805.750 ml -35.0 ml Free Water 10 ml IV Total 1945.750 ml 1255.0 ml Other 180 ml 60 ml Output Urine Total 1100 ml 1350 ml Stool Total 50 ml Gastric Drainage Total 180 ml Dressing: saturated Wound: clean Cardiovascular: RSR Respiratory: clear Abdomen: soft, non-tender, present bowel sounds, non-distended Extremities: no cyanosis Laboratory Tests Test 02/22/19 17:30 02/23/19 04:30 02/23/19 08:14 White Blood Count 7.5 K/UL (4.8-10.8) Red Blood Count 3.18 M/UL (4.70-6.10) L Hemoglobin 9.2 G/DL (14.2-18.0) #L Hematocrit 27.0 % (42.0-52.0) #L Mean Corpuscular Volume 85 FL (80-99) Mean Corpuscular Hemoglobin 29.0 PG (27.0-31.0) Mean Corpuscular Hemoglobin Concent 34.2 G/DL (32.0-36.0) Red Cell Distribution Width 15.5 % (11.6-14.8) H Platelet Count 150 K/UL (150-450) Mean Platelet Volume 6.2 FL (6.5-10.1) L Neutrophils (%) (Auto) 86.9 % (45.0-75.0) H Lymphocytes (%) (Auto) 6.3 % (20.0-45.0) L Monocytes (%) (Auto) 6.3 % (1.0-10.0) Eosinophils (%) (Auto) 0.0 % (0.0-3.0) Basophils (%) (Auto) 0.5 % (0.0-2.0) Sodium Level 135 MMOL/L (136-145) L Potassium Level 4.5 MMOL/L (3.5-5.1) Chloride Level 100 MMOL/L (98-107) Carbon Dioxide Level 26 MMOL/L (21-32) Anion Gap 10 mmol/L (5-15) Blood Urea Nitrogen 58 mg/dL (7-18) H Creatinine 2.6 MG/DL (0.55-1.30) H Estimat Glomerular Filtration Rate 25.4 mL/min (>60) Glucose Level 93 MG/DL (74-106) Calcium Level 8.0 MG/DL (8.5-10.1) L Arterial Blood pH 7.381 (7.350-7.450) Arterial Blood Partial Pressure CO2 39.0 mmHg (35.0-45.0) Arterial Blood Partial Pressure O2 88.5 mmHg (75.0-100.0) Arterial Blood HCO3 22.6 mmol/L (22.0-26.0) Arterial Blood Oxygen Saturation 95.9 % (95-100) Arterial Blood Base Excess -2.3 (-2-2) L Benny Test Positive Plan Problems: (1) Hypoxia Assessment & Plan: Extensive bilateral upper lobe infiltrates likely inflammatory/infectious. Correlate clinically. Tuberculosis is not excludable. Bilateral pleural effusions. Endotracheal tube and nasogastric tube in good position Atherosclerotic vascular disease (2) Respiratory distress Assessment & Plan: intubated on vent support (3) Sepsis Assessment & Plan: Sepsis with tachycardia, leukocytosis - resolved, abnormal labs, respiratory distress on vent support via ET tube Cont IV abx CXR noted appreciate ICU team care abnormal lft's US noted will likely remove line soon now that improving will cont to follow with recs trend labs Rx as written Moiz Costa Feb 23, 2019 14:17
--- NOTE | 2019-02-23 14:41 | Pulmonolgy Critical Care Note ---
Critical Care - Asmt/Plan Assessment/Plan: Pulmonary CCM Progress Note Critical Care - Asmt/Plan Problems: (1) Endotracheally intubated (2) Acute hypoxemic respiratory failure (3) Pneumonia (4) NSTEMI (non-ST elevated myocardial infarction) (5) AIDS (6) HIV disease (7) Hypertension (8) MDD (major depressive disorder), recurrent episode, moderate (9) Anemia (10) CKD (chronic kidney disease) (11) History of stroke (12) Diabetes (13) Anxiety (14) Malignant hypertension Assessment/Plan: VDRF - wean as tolerated ARDS Acute respiratory failure Bilateral pulmonary infiltrates, ? 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, 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, 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, ID, GI Discussed with: nurses, consultants Critical Care - Objective Vital Signs Noted Status: sedated Condition: critical HEENT: atraumatic, normocephalic, other - ETT OGT Lungs: rales Heart: HR/BP stable Abdomen: soft, non-tender, active bowel sounds Extremities: edema - 2+ Blood Sugars: BS not controlled Critical Care - Subjective ROS Limited/Unobtainable: Yes ICU Day: 13 Intubation Day: 11 Interval Events: Failed SBT Condition: critical IV Access: central, peripheral EKG Rhythm: Sinus Rhythm FI02: 100 Vent Support Breath Rate: 24 Vent Support Mode: AC Vent Tidal Volume: 500 Sputum Amount: Scant PEEP: 5.0 PIP: 37 Fluids: D5W Drips: Versed, Fent Tube Feeding Amount: 50 Subjective: Sedated on fent/versed ET-Tube: 7.5 ET Position: 25 Labs: Laboratory Tests Test 02/16/19 03:30 02/16/19 05:05 02/16/19 08:08 Stool Occult Blood Pending White Blood Count 7.8 K/UL (4.8-10.8) # Red Blood Count 3.26 M/UL (4.70-6.10) L Hemoglobin 8.9 G/DL (14.2-18.0) L Hematocrit 27.8 % (42.0-52.0) L Mean Corpuscular Volume 85 FL (80-99) Mean Corpuscular Hemoglobin 27.5 PG (27.0-31.0) Mean Corpuscular Hemoglobin Concent 32.1 G/DL (32.0-36.0) Red Cell Distribution Width 18.1 % (11.6-14.8) H Platelet Count 253 K/UL (150-450) Mean Platelet Volume 6.4 FL (6.5-10.1) L Neutrophils (%) (Auto) % (45.0-75.0) Lymphocytes (%) (Auto) % (20.0-45.0) Monocytes (%) (Auto) % (1.0-10.0) Eosinophils (%) (Auto) % (0.0-3.0) Basophils (%) (Auto) % (0.0-2.0) Sodium Level 148 MMOL/L (136-145) H Potassium Level 5.8 MMOL/L (3.5-5.1) H Chloride Level 114 MMOL/L (98-107) H Carbon Dioxide Level 28 MMOL/L (21-32) Anion Gap 6 mmol/L (5-15) Blood Urea Nitrogen 71 mg/dL (7-18) H Creatinine 2.6 MG/DL (0.55-1.30) H Estimat Glomerular Filtration Rate 25.4 mL/min (>60) Glucose Level 269 MG/DL (74-106) H Uric Acid 4.8 MG/DL (2.6-7.2) Calcium Level 7.8 MG/DL (8.5-10.1) L Phosphorus Level 4.6 MG/DL (2.5-4.9) Magnesium Level 2.9 MG/DL (1.8-2.4) H Total Bilirubin 0.2 MG/DL (0.2-1.0) Aspartate Amino Transf (AST/SGOT) 32 U/L (15-37) Alanine Aminotransferase (ALT/SGPT) 51 U/L (12-78) Alkaline Phosphatase 157 U/L (46-116) H C-Reactive Protein, Quantitative 2.2 mg/dL (0.00-0.90) H Pro-B-Type Natriuretic Peptide 5575 pg/mL (0-125) H Total Protein 5.7 G/DL (6.4-8.2) L Albumin 2.0 G/DL (3.4-5.0) L Globulin 3.7 g/dL Albumin/Globulin Ratio 0.5 (1.0-2.7) L Random Vancomycin Level 11.4 ug/mL Arterial Blood pH 7.244 (7.350-7.450) Arterial Blood Partial Pressure CO2 59.1 mmHg (35.0-45.0) *H Arterial Blood Partial Pressure O2 63.4 mmHg (75.0-100.0) L Arterial Blood HCO3 25.0 mmol/L (22.0-26.0) Arterial Blood Oxygen Saturation 87.0 % (95-100) *L Arterial Blood Base Excess -3.0 (-2-2) L Benny Test Positive Critical Care - Objective Last 24 Hour Vital Signs Date Time Temp Pulse Resp B/P (MAP) Pulse Ox O2 Delivery O2 Flow Rate FiO2 02/23/19 13:42 136/68 02/23/19 13:31 25 Mechanical Ventilator 40 02/23/19 12:57 69 29 40 02/23/19 12:00 40 02/23/19 12:00 Mechanical Ventilator Mechanical Ventilator 02/23/19 11:51 129/66 02/23/19 11:50 129/66 02/23/19 11:33 66 24 99 Mechanical Ventilator 40 02/23/19 11:23 63 24 97 Mechanical Ventilator 40 02/23/19 11:23 63 24 40 02/23/19 11:00 69 24 150/78 (102) 97 02/23/19 10:39 28 Mechanical Ventilator 40 02/23/19 10:00 65 24 133/70 (91) 97 02/23/19 09:20 74 134/66 02/23/19 09:19 73 134/72 02/23/19 09:00 73 24 134/66 (88) 99 02/23/19 08:55 73 28 40 02/23/19 08:00 73 02/23/19 08:00 98.3 72 24 124/74 (91) 99 02/23/19 08:00 40 02/23/19 08:00 Mechanical Ventilator Mechanical Ventilator 02/23/19 07:05 72 24 100 Mechanical Ventilator 40 02/23/19 07:00 73 23 123/66 (85) 100 02/23/19 07:00 24 Mechanical Ventilator 40 02/23/19 06:55 71 24 40 02/23/19 06:55 71 24 99 Mechanical Ventilator 40 02/23/19 06:35 18 Mechanical Ventilator 40 02/23/19 06:30 73 17 131/65 (87) 99 02/23/19 06:00 75 17 124/72 (89) 96 02/23/19 05:49 131/73 02/23/19 05:48 131/73 02/23/19 05:48 131/73 02/23/19 05:35 16 Mechanical Ventilator 40 02/23/19 05:34 18 Mechanical Ventilator 40 02/23/19 05:30 73 20 131/73 (92) 99 02/23/19 05:06 77 25 40 02/23/19 05:00 74 18 136/67 (90) 96 02/23/19 05:00 18 Mechanical Ventilator 40 02/23/19 04:30 77 25 143/72 (95) 97 02/23/19 04:00 97.2 82 17 141/95 (110) 94 02/23/19 04:00 20 Mechanical Ventilator 40 02/23/19 04:00 77 02/23/19 04:00 Mechanical Ventilator Mechanical Ventilator 02/23/19 04:00 40 02/23/19 03:30 73 23 123/67 (85) 96 02/23/19 03:00 69 23 119/59 (79) 96 02/23/19 03:00 18 Mechanical Ventilator 40 02/23/19 02:58 78 24 100 Mechanical Ventilator 40 02/23/19 02:48 72 24 97 Mechanical Ventilator 40 02/23/19 02:43 78 26 40 02/23/19 02:30 72 24 134/62 (86) 97 02/23/19 02:00 25 Mechanical Ventilator 40 02/23/19 02:00 79 24 156/74 (101) 94 02/23/19 01:30 69 24 110/56 (74) 94 02/23/19 01:20 68 24 40 02/23/19 01:00 71 24 121/59 (79) 95 02/23/19 01:00 22 Mechanical Ventilator 40 02/23/19 00:30 23 Mechanical Ventilator 40 02/23/19 00:30 76 15 91/68 (76) 95 02/23/19 00:00 97.8 71 13 122/68 (86) 95 02/23/19 00:00 18 Mechanical Ventilator 40 02/23/19 00:00 Mechanical Ventilator Mechanical Ventilator 02/22/19 23:41 135/66 02/22/19 23:41 135/66 02/22/19 23:30 70 24 127/63 (84) 98 02/22/19 23:30 20 Mechanical Ventilator 40 02/22/19 23:15 73 24 100 Mechanical Ventilator 40 02/22/19 23:00 69 22 120/56 (77) 99 02/22/19 22:49 67 24 40 02/22/19 22:48 67 24 98 Mechanical Ventilator 40 02/22/19 22:30 18 Mechanical Ventilator 40 02/22/19 22:30 69 23 126/66 (86) 98 02/22/19 22:00 73 14 132/70 (90) 98 02/22/19 21:32 71 120/58 02/22/19 21:32 120/58 02/22/19 21:30 20 Mechanical Ventilator 40 02/22/19 21:30 71 23 120/54 (76) 100 02/22/19 21:00 70 24 119/60 (79) 100 02/22/19 20:55 69 24 40 02/22/19 20:30 19 Mechanical Ventilator 40 02/22/19 20:30 71 23 125/61 (82) 100 02/22/19 20:00 73 02/22/19 20:00 Mechanical Ventilator Mechanical Ventilator 02/22/19 20:00 40 02/22/19 20:00 97.5 78 25 136/67 (90) 97 02/22/19 19:30 74 24 124/60 (81) 98 02/22/19 19:30 18 Mechanical Ventilator 40 02/22/19 19:13 78 24 98 Mechanical Ventilator 40 02/22/19 19:00 98.2 02/22/19 19:00 75 24 136/64 (88) 98 02/22/19 18:53 74 24 40 02/22/19 18:52 75 22 100 Mechanical Ventilator 40 02/22/19 18:30 71 19 127/60 (82) 97 02/22/19 18:30 24 Mechanical Ventilator 40 02/22/19 18:00 71 16 130/66 (87) 96 02/22/19 18:00 24 Mechanical Ventilator 40 02/22/19 17:56 131/65 02/22/19 17:56 131/65 02/22/19 17:30 72 23 131/65 (87) 97 02/22/19 17:00 70 23 137/65 (89) 97 02/22/19 17:00 24 Mechanical Ventilator 40 02/22/19 16:46 66 24 40 02/22/19 16:30 68 24 126/61 (82) 94 02/22/19 16:00 Mechanical Ventilator Mechanical Ventilator 02/22/19 16:00 70 02/22/19 16:00 40 02/22/19 16:00 24 Mechanical Ventilator 40 02/22/19 16:00 98.0 69 24 120/50 (73) 96 02/22/19 15:30 75 24 135/57 (83) 97 02/22/19 15:01 82 25 40 02/22/19 15:00 28 Mechanical Ventilator 40 02/22/19 15:00 79 24 148/90 (109) 98 02/22/19 14:53 77 24 100 Mechanical Ventilator 40 02/22/19 14:48 85 24 98 Mechanical Ventilator 40 Micro: Microbiology Date/Time Source Procedure Growth Status 02/20/19 19:00 Blood Blood Culture - Preliminary NO GROWTH AFTER 48 HOURS Resulted 02/20/19 18:45 Blood Blood Culture - Preliminary NO GROWTH AFTER 48 HOURS Resulted 02/20/19 18:45 Sputum Gram Stain - Final Complete 02/20/19 18:45 Sputum Sputum Culture - Final NO GROWTH AFTER 48 HOURS Complete 02/20/19 18:45 Indwelling Cath Urine Culture - Final NO GROWTH AFTER 48 HOURS Complete Accucheck: 85 Critical Care - Subjective ROS Limited/Unobtainable: No FI02: 40 Vent Support Breath Rate: 24 Vent Support Mode: AC Vent Tidal Volume: 550 Sputum Amount: Small PEEP: 5.0 PIP: 46 I&O: Intake and Output 02/22/19 02/23/19 19:00 07:00 Intake Total 2135.750 ml 1315.0 ml Output Total 1330 ml 1350 ml Balance 805.750 ml -35.0 ml Free Water 10 ml IV Total 1945.750 ml 1255.0 ml Other 180 ml 60 ml Output Urine Total 1100 ml 1350 ml Stool Total 50 ml Gastric Drainage Total 180 ml ET-Tube: 7.5 ET Position: 24 Salty Yan MD Feb 23, 2019 14:41
[2019-02-23] MEDS ORDERED: DOPamine 400mg/250ml 250 ML IV SCH (16:45)
--- NOTE | 2019-02-23 17:00 | NUR ---
RESPIRATORY NOTE: PT REMAINED STABLE ON CMV WITH CURRENT SETTINGS. SX PRN. AIRWAY IS SECURE AND PATENT. VENT CIRCUIT AND SX TUBING SECURE AND OUT OF THE WAY. NO S/S OF RESPIRATORY DISTRESS NOTED AT THIS TIME.
--- NOTE | 2019-02-23 17:00 | NUR ---
NURSE NOTES: Patient agitated with RASS of +2. Fentanyl drip increased to 300mcg/hr. Will continue to monitor and titrate per protocol.
--- NOTE | 2019-02-23 18:07 | General Progress Note ---
Assessment/Plan Status: stable Assessment/Plan: 58 y Male admitted to the hospital due to fever, shortness of breath and chest pain. # Multilobar pneumonia in patient with HIV # Acute Hypoxemic respiratory failure - extubated - on BiPAP # ARDS - improved - Broad sp atbx. Will continue Zosyn, Vancomycin and Azithromycin - Bactrim for PCP coverage - Droplet precaution -DCed - Oxygen support - ID consult appreciated. - Patient s/p emergent bronchoscopy given florid ARDS - Extubated 02/19 to BiPAP - reintubated 02/20/19 -vent management per pulmonary #Acute blood loss anemia -poss GI Source -Tube feedings stopped -s/p PRBC x 2 - repeat Hb acceptable - repeat in AM with coag -Protonix IV -CTM # NSTEMI - EKG with bifascicular block RBB and LAFB, no ST changes. - Trend troponin x3 - ECHO completed with no WMA and preserved EF. Dr. Francois consulted. Consideration for outpatient cath vs possibly myocarditis due to underlying viral infection. No evidence of Takotsubo per TTE. - NGT prn - Pain control with morphine # HIV - Continue HARRT - VL is undetectable per patient report. 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 Objective Last 24 Hour Vital Signs Date Time Temp Pulse Resp B/P (MAP) Pulse Ox O2 Delivery O2 Flow Rate FiO2 02/23/19 17:32 144/68 02/23/19 17:31 144/68 02/23/19 17:00 68 24 40 02/23/19 16:51 24 Mechanical Ventilator 40 02/23/19 15:12 68 24 97 Mechanical Ventilator 40 02/23/19 15:04 69 24 96 Mechanical Ventilator 40 02/23/19 15:04 69 24 40 02/23/19 13:42 136/68 02/23/19 13:31 25 Mechanical Ventilator 40 02/23/19 12:57 69 29 40 02/23/19 12:00 40 02/23/19 12:00 Mechanical Ventilator Mechanical Ventilator 02/23/19 11:51 129/66 02/23/19 11:50 129/66 02/23/19 11:33 66 24 99 Mechanical Ventilator 40 02/23/19 11:23 63 24 97 Mechanical Ventilator 40 02/23/19 11:23 63 24 40 02/23/19 11:00 69 24 150/78 (102) 97 02/23/19 10:39 28 Mechanical Ventilator 40 02/23/19 10:00 65 24 133/70 (91) 97 02/23/19 09:20 74 134/66 02/23/19 09:19 73 134/72 02/23/19 09:00 73 24 134/66 (88) 99 02/23/19 08:55 73 28 40 02/23/19 08:00 73 02/23/19 08:00 98.3 72 24 124/74 (91) 99 02/23/19 08:00 40 02/23/19 08:00 Mechanical Ventilator Mechanical Ventilator 02/23/19 07:05 72 24 100 Mechanical Ventilator 40 02/23/19 07:00 73 23 123/66 (85) 100 02/23/19 07:00 24 Mechanical Ventilator 40 02/23/19 06:55 71 24 40 02/23/19 06:55 71 24 99 Mechanical Ventilator 40 02/23/19 06:35 18 Mechanical Ventilator 40 02/23/19 06:30 73 17 131/65 (87) 99 02/23/19 06:00 75 17 124/72 (89) 96 02/23/19 05:49 131/73 02/23/19 05:48 131/73 02/23/19 05:48 131/73 02/23/19 05:35 16 Mechanical Ventilator 40 02/23/19 05:34 18 Mechanical Ventilator 40 02/23/19 05:30 73 20 131/73 (92) 99 02/23/19 05:06 77 25 40 02/23/19 05:00 74 18 136/67 (90) 96 02/23/19 05:00 18 Mechanical Ventilator 40 02/23/19 04:30 77 25 143/72 (95) 97 02/23/19 04:00 97.2 82 17 141/95 (110) 94 02/23/19 04:00 20 Mechanical Ventilator 40 02/23/19 04:00 77 02/23/19 04:00 Mechanical Ventilator Mechanical Ventilator 02/23/19 04:00 40 02/23/19 03:30 73 23 123/67 (85) 96 02/23/19 03:00 69 23 119/59 (79) 96 02/23/19 03:00 18 Mechanical Ventilator 40 02/23/19 02:58 78 24 100 Mechanical Ventilator 40 02/23/19 02:48 72 24 97 Mechanical Ventilator 40 02/23/19 02:43 78 26 40 02/23/19 02:30 72 24 134/62 (86) 97 02/23/19 02:00 25 Mechanical Ventilator 40 02/23/19 02:00 79 24 156/74 (101) 94 02/23/19 01:30 69 24 110/56 (74) 94 02/23/19 01:20 68 24 40 02/23/19 01:00 71 24 121/59 (79) 95 02/23/19 01:00 22 Mechanical Ventilator 40 02/23/19 00:30 23 Mechanical Ventilator 40 02/23/19 00:30 76 15 91/68 (76) 95 02/23/19 00:00 97.8 71 13 122/68 (86) 95 02/23/19 00:00 18 Mechanical Ventilator 40 02/23/19 00:00 Mechanical Ventilator Mechanical Ventilator 02/22/19 23:41 135/66 02/22/19 23:41 135/66 02/22/19 23:30 70 24 127/63 (84) 98 02/22/19 23:30 20 Mechanical Ventilator 40 02/22/19 23:15 73 24 100 Mechanical Ventilator 40 02/22/19 23:00 69 22 120/56 (77) 99 02/22/19 22:49 67 24 40 02/22/19 22:48 67 24 98 Mechanical Ventilator 40 02/22/19 22:30 18 Mechanical Ventilator 40 02/22/19 22:30 69 23 126/66 (86) 98 02/22/19 22:00 73 14 132/70 (90) 98 02/22/19 21:32 71 120/58 02/22/19 21:32 120/58 02/22/19 21:30 20 Mechanical Ventilator 40 02/22/19 21:30 71 23 120/54 (76) 100 02/22/19 21:00 70 24 119/60 (79) 100 02/22/19 20:55 69 24 40 02/22/19 20:30 19 Mechanical Ventilator 40 02/22/19 20:30 71 23 125/61 (82) 100 02/22/19 20:00 73 02/22/19 20:00 Mechanical Ventilator Mechanical Ventilator 02/22/19 20:00 40 02/22/19 20:00 97.5 78 25 136/67 (90) 97 02/22/19 19:30 74 24 124/60 (81) 98 02/22/19 19:30 18 Mechanical Ventilator 40 02/22/19 19:13 78 24 98 Mechanical Ventilator 40 02/22/19 19:00 98.2 02/22/19 19:00 75 24 136/64 (88) 98 02/22/19 18:53 74 24 40 02/22/19 18:52 75 22 100 Mechanical Ventilator 40 02/22/19 18:30 71 19 127/60 (82) 97 02/22/19 18:30 24 Mechanical Ventilator 40 Intake and Output 02/22/19 02/23/19 19:00 07:00 Intake Total 2135.750 ml 1315.0 ml Output Total 1330 ml 1350 ml Balance 805.750 ml -35.0 ml Free Water 10 ml IV Total 1945.750 ml 1255.0 ml Other 180 ml 60 ml Output Urine Total 1100 ml 1350 ml Stool Total 50 ml Gastric Drainage Total 180 ml Laboratory Tests 02/23/19 04:30: Sodium Level 135L, Potassium Level 4.5, Chloride Level 100, Carbon Dioxide Level 26, Anion Gap 10, Blood Urea Nitrogen 58H, Creatinine 2.6H, Estimat Glomerular Filtration Rate 25.4, Glucose Level 93, Calcium Level 8.0L 02/23/19 08:14: Arterial Blood pH 7.381, Arterial Blood Partial Pressure CO2 39.0, Arterial Blood Partial Pressure O2 88.5, Arterial Blood HCO3 22.6, Arterial Blood Oxygen Saturation 95.9, Arterial Blood Base Excess -2.3L, Benny Test Positive Height (Feet): 6 Height (Inches): 0.00 Weight (Pounds): 274 Objective General Appearance: intubated, no agitation EENT: intubated Neck: non-tender, normal alignment Cardiovascular: normal peripheral pulses, normal rate Respiratory/Chest: chest wall non-tender, lungs clear Abdomen: normal bowel sounds, non tender Extremities: normal range of motion, non-tender Edema: trace edema Neurologic: design center consultant II-XII grossly normal Sonja Douglas MD Feb 23, 2019 18:07
--- NOTE | 2019-02-23 19:20 | NUR ---
HAND-OFF: Report given to TESSA Alva. Patient still restless at this time. Endorsed to follow up. Patient on fentanyl 300mcg/hr. Patient has orders for weaning trial in the morning. Endorsed to follow up. Patient VS stable at this time.
--- NOTE | 2019-02-23 19:26 | NUR ---
RESPIRATORY NOTE: Received pt on AC 24, 550VT, 40%, PEEP +5. Pt intubated w/ ETT 7.5 @ 24cm lipline, secured by anchorfast. Pt sedated, but still responds to stimuli once in a while. B/S elina. rhonchi, sxn small amounts of thick, pale-yellow secretions. Bite block in place as pt tends to clench jaw. Both hands on soft restraints to prevent pt from self-extubation. Vent plugged into red outlet, ambubag at bedside. Pt in no apparent distress at this time. Will continue to monitor pt.
[2019-02-23] MEDS: Dyna-Hex 2% Top Sol 2oz TOPIC SCH (19:40)
--- NOTE | 2019-02-23 19:50 | NUR ---
NURSE NOTES: PATIENT OPEN EYES, AGITATED, ON ETT TO VENT, AC 24/TV 550/FIO2 40%/PEEP 5, O2 SATURATION OVER 97% NOTED, NGT TUBE INTACT AND PATENT, LOWER INTERMITTENT SUCTION STATUS, ABDOMEN DISTENDED, TENDER, RECTAL TUBE INTACT, BROWN COLOR STOOL OUTED, F/C INTACT AND PATENT, DARK JUDAH COLOR OUTED, JOAN CATH WITH PIG TAIL TO LEFT FEMORAL AND PERIPHERAL LINE TO LEFT FA, INTACT AND PATENT, ONGOING D5W AT 75ML/HR AND FENTANYL DRIP 300MCG/HR VIA JOAN W/ PIG TAIL STATU, 2 POINT SOFT RESTRAINT STATUS, SCD'S TO RIGHT LOWER LEGS, ON P200 BED, MADE LOWER BED POSITION AND PROVIDED CALL LIGHT WITHIN REACH, WILL CONTINUE TO MONITOR. Addendum: 02/24/19 at 0648 by ERIK LANCE RN NURSE NOTES: PATIENT OPEN EYES, AGITATED, ON ETT TO VENT, AC 24/TV 550/FIO2 40%/PEEP 5, O2 SATURATION OVER 97% NOTED, NGT TUBE INTACT AND PATENT, LOWER INTERMITTENT SUCTION STATUS, ABDOMEN DISTENDED, TENDER, RECTAL TUBE INTACT, BROWN COLOR STOOL OUTED, F/C INTACT AND PATENT, DARK JUDAH COLOR OUTED, JOAN CATH WITH PIG TAIL TO LEFT FEMORAL AND PERIPHERAL LINE TO LEFT FA, INTACT AND PATENT, ONGOING D5W 1/2 NS AT 75ML/HR AND FENTANYL DRIP 300MCG/HR VIA JOAN W/ PIG TAIL STATU, 2 POINT SOFT RESTRAINT STATUS, SCD'S TO RIGHT LOWER LEGS, ON P200 BED, MADE LOWER BED POSITION AND PROVIDED CALL LIGHT WITHIN REACH, WILL CONTINUE TO MONITOR.
[2019-02-23] MEDS: fentaNYL Citrate 2500mcg in NS 250ml IV SCH (20:08)
[2019-02-23] MEDS: Miralax 17gm pkt ORAL SCH (20:34)
[2019-02-23] MEDS: Maxitrol Opth Oint 3.5gm BOTH EYES SCH (20:34)
--- NOTE | 2019-02-23 22:00 | NUR ---
NURSE NOTES: RELEASED RESTRAINTS AND REAPPLIED FOR SAFETY.
--- NOTE | 2019-02-23 23:42 | NUR ---
NURSE NOTES: PATIENT DROWSY AND AGITATED THAT GIVEN ATIVAN 2MG BY IVP PRN ORDERED FOR AGITATION, WILL CONTINUE TO MONITOR.
[2019-02-24] VITALS (48 sets, daily range): BP systolic 98–153; BP diastolic 52–81
[2019-02-24] MEDS: NovoLOG Insulin Flexpen SUBQ SCH ×6 (00:49→20:40)
--- NOTE | 2019-02-24 01:50 | NUR ---
NURSE NOTES: PATIENT SEDATED, KEPT RASS SCORE -2, AT THIS TIME, WILL CONTINUE PLAN OF CARE.
[2019-02-24] MEDS: Albuterol/Ipratropium 3ml neb HHN SCH ×6 (02:55→23:07)
--- NOTE | 2019-02-24 04:00 | NUR ---
NURSE NOTES: MORNING CARE WAS DONE.
[2019-02-24] MEDS: fentaNYL Citrate 2500mcg in NS 250ml IV SCH ×3 (04:12→22:56)
[2019-02-24] MEDS: D5 1/2NS 1,000 ML IV SCH (04:14)
[2019-02-24] MEDS: LORazepam Inj 2mg/ml 1ml IV PRN ×4 (04:23→22:48)
--- NOTE | 2019-02-24 04:23 | NUR ---
NURSE NOTES: PATIENT OPEN EYES, TRIED TO TOUCH LINE AND AGITATED THAT GIVEN ATIVAN 2MG BY IVP PRN ORDERED FOR AGITATION, WILL CONTINUE TO MONITOR.
[2019-02-24] MEDS: Zosyn 3.375gm q8h **Extended infusion IVPB SCH ×4 (05:45→14:22)
[2019-02-24] MEDS: HydrALAZINE 50mg tab NG SCH ×3 (05:45→21:31)
[2019-02-24 05:55] LABS: HEMATOCRIT 27.9 % (42.0-52.0); MEAN CORPUSCULAR VOLUME 89 FL (80-99); PLATELET COUNT 202 K/UL (150-450); RED BLOOD COUNT 3.14 M/UL (4.70-6.10); RED CELL DISTRIBUTION WIDTH 17.1 % (11.6-14.8); WHITE BLOOD COUNT 6.4 K/UL (4.8-10.8)
--- NOTE | 2019-02-24 06:00 | NUR ---
NURSE NOTES: PATIENT CALM, DECREASED FENTANYL DRIP TO 300MCG/HR AT THIS TIME, WILL CONTINUE TO MONITOR.
[2019-02-24 06:12] LABS: ALANINE AMINOTRANSFERASE 59 U/L (12-78); ALBUMIN 2.4 G/DL (3.4-5.0); ALBUMIN/GLOBULIN RATIO 0.7 (1.0-2.7); ALKALINE PHOSPHATASE 105 U/L (46-116); ANION GAP 10 mmol/L (5-15); ASPARTATE AMINO TRANSFERASE 58 U/L (15-37); BILIRUBIN,TOTAL 0.5 MG/DL (0.2-1.0); BLOOD UREA NITROGEN 59 mg/dL (7-18); CALCIUM 8.1 MG/DL (8.5-10.1); CARBON DIOXIDE 24 MMOL/L (21-32); CHLORIDE 101 MMOL/L (98-107); CREATININE 2.6 MG/DL (0.55-1.30); SODIUM 135 MMOL/L (136-145)
[2019-02-24] MEDS: Lacri-Lube Opth Oint 3.5gm BOTH EYES SCH ×4 (06:12→20:37)
[2019-02-24 06:30] LABS: INR 1.1 (0.9-1.1)
--- NOTE | 2019-02-24 06:52 | NUR ---
NURSE NOTES: SEEN THE PATIENT BY DR. YE.
--- NOTE | 2019-02-24 06:55 | NUR ---
NURSE NOTES: SEEN THE PATIENT BY DR. AUGUST.
--- NOTE | 2019-02-24 06:59 | General Progress Note ---
Assessment/Plan Status: stable Assessment/Plan: 1. History of HIV. 2. Hypertension. 3. Vertigo. 4. History of headaches. 5. History of diabetes. 6. Respiratory failure 7. Dysphagia 8. ileus stable H&H will restart NGTF ppi fu H&H prn blood transfusion Subjective ROS Limited/Unobtainable: No Allergies: Coded Allergies: No Known Allergies (Unverified , 02/05/13) Objective Last 24 Hour Vital Signs Date Time Temp Pulse Resp B/P (MAP) Pulse Ox O2 Delivery O2 Flow Rate FiO2 02/24/19 06:30 74 17 139/77 (97) 100 02/24/19 06:00 70 22 128/75 (92) 99 02/24/19 06:00 22 Mechanical Ventilator 40 02/24/19 05:46 148/84 02/24/19 05:45 148/84 02/24/19 05:45 148/84 02/24/19 05:30 72 24 40 02/24/19 05:30 74 19 150/79 (102) 99 02/24/19 05:00 79 17 149/52 (84) 97 02/24/19 05:00 17 Mechanical Ventilator 40 02/24/19 04:30 74 19 140/73 (95) 98 02/24/19 04:12 24 Mechanical Ventilator 40 02/24/19 04:00 Mechanical Ventilator Mechanical Ventilator 02/24/19 04:00 98.3 74 24 136/74 (94) 98 02/24/19 04:00 40 02/24/19 03:30 71 22 129/65 (86) 99 02/24/19 03:05 65 24 100 Mechanical Ventilator 40 02/24/19 03:01 64 02/24/19 03:00 22 Mechanical Ventilator 40 02/24/19 03:00 64 22 110/57 (74) 100 02/24/19 02:55 63 24 100 Mechanical Ventilator 40 02/24/19 02:55 63 24 40 02/24/19 02:30 63 23 108/67 (81) 98 02/24/19 02:00 24 Non-Rebreather 40 02/24/19 02:00 64 24 110/60 (77) 98 02/24/19 01:30 72 24 127/67 (87) 98 02/24/19 01:17 75 24 40 02/24/19 01:00 64 24 106/62 (77) 97 02/24/19 01:00 24 Mechanical Ventilator 40 02/24/19 00:30 69 21 105/60 (75) 97 02/24/19 00:00 97.4 77 24 120/57 (78) 98 02/24/19 00:00 Mechanical Ventilator Mechanical Ventilator 02/24/19 00:00 24 Mechanical Ventilator 40 02/23/19 23:40 123/70 02/23/19 23:40 123/70 02/23/19 23:30 71 24 123/70 (87) 97 02/23/19 23:10 75 24 99 Mechanical Ventilator 40 02/23/19 23:02 69 02/23/19 23:00 64 24 99 Mechanical Ventilator 40 02/23/19 23:00 69 24 152/70 (97) 100 02/23/19 23:00 64 24 40 02/23/19 23:00 24 Mechanical Ventilator 40 02/23/19 22:30 64 21 106/85 (92) 98 02/23/19 22:00 63 24 110/59 (76) 98 02/23/19 22:00 24 Mechanical Ventilator 40 02/23/19 21:39 110/61 02/23/19 21:30 64 22 110/63 (79) 99 02/23/19 21:09 66 24 40 02/23/19 21:00 67 24 106/58 (74) 99 02/23/19 20:35 69 111/54 02/23/19 20:30 70 24 111/54 (73) 99 02/23/19 20:08 21 Mechanical Ventilator 40 02/23/19 20:00 24 Mechanical Ventilator 40 02/23/19 20:00 40 02/23/19 20:00 98.7 77 24 121/61 (81) 99 02/23/19 20:00 Mechanical Ventilator Mechanical Ventilator 02/23/19 19:48 89 02/23/19 19:35 71 24 100 Mechanical Ventilator 40 02/23/19 19:30 75 21 132/67 (88) 98 02/23/19 19:25 75 25 100 Mechanical Ventilator 40 02/23/19 19:23 75 25 40 02/23/19 19:00 24 Mechanical Ventilator 40 02/23/19 19:00 74 24 130/64 (86) 99 02/23/19 18:45 74 24 124/73 (90) 98 02/23/19 18:00 76 24 150/78 (102) 97 02/23/19 18:00 24 Mechanical Ventilator 40 02/23/19 17:45 79 24 150/78 (102) 97 02/23/19 17:32 144/68 02/23/19 17:31 144/68 02/23/19 17:30 75 24 132/67 (88) 97 02/23/19 17:15 73 24 144/68 (93) 97 02/23/19 17:00 80 24 152/88 (109) 97 02/23/19 17:00 24 Mechanical Ventilator 40 02/23/19 17:00 68 24 40 02/23/19 16:51 24 Mechanical Ventilator 40 02/23/19 16:50 24 Mechanical Ventilator 40 02/23/19 16:00 40 02/23/19 16:00 98.1 70 24 122/61 (81) 99 02/23/19 16:00 Mechanical Ventilator Mechanical Ventilator 02/23/19 16:00 24 Mechanical Ventilator 40 02/23/19 16:00 70 02/23/19 15:12 68 24 97 Mechanical Ventilator 40 02/23/19 15:04 69 24 96 Mechanical Ventilator 40 02/23/19 15:04 69 24 40 02/23/19 15:00 24 Mechanical Ventilator 40 02/23/19 15:00 69 24 128/60 (82) 97 02/23/19 14:00 24 Mechanical Ventilator 40 02/23/19 14:00 70 24 131/87 (102) 97 02/23/19 13:42 136/68 02/23/19 13:31 25 Mechanical Ventilator 40 02/23/19 13:00 24 Mechanical Ventilator 40 02/23/19 13:00 82 24 122/80 (94) 97 02/23/19 12:57 69 29 40 02/23/19 12:00 40 02/23/19 12:00 Mechanical Ventilator Mechanical Ventilator 02/23/19 12:00 69 02/23/19 12:00 24 Mechanical Ventilator 40 02/23/19 12:00 98.3 69 24 135/67 (89) 99 02/23/19 11:51 129/66 02/23/19 11:50 129/66 02/23/19 11:33 66 24 99 Mechanical Ventilator 40 02/23/19 11:23 63 24 97 Mechanical Ventilator 40 02/23/19 11:23 63 24 40 02/23/19 11:00 69 24 150/78 (102) 97 02/23/19 11:00 24 Mechanical Ventilator 40 02/23/19 10:39 28 Mechanical Ventilator 40 02/23/19 10:00 65 24 133/70 (91) 97 02/23/19 10:00 24 Mechanical Ventilator 40 02/23/19 09:20 74 134/66 02/23/19 09:19 73 134/72 02/23/19 09:00 24 Mechanical Ventilator 40 02/23/19 09:00 73 24 134/66 (88) 99 02/23/19 08:55 73 28 40 02/23/19 08:00 73 02/23/19 08:00 98.3 72 24 124/74 (91) 99 02/23/19 08:00 24 Mechanical Ventilator 40 02/23/19 08:00 40 02/23/19 08:00 Mechanical Ventilator Mechanical Ventilator 02/23/19 07:05 72 24 100 Mechanical Ventilator 40 02/23/19 07:00 73 23 123/66 (85) 100 02/23/19 07:00 24 Mechanical Ventilator 40 Intake and Output 02/23/19 02/24/19 19:00 07:00 Intake Total 878.0 ml 2076.5 ml Output Total 1120 ml 810 ml Balance -242.0 ml 1266.5 ml IV Total 878.0 ml 1866.5 ml Other 210 ml Output Urine Total 1120 ml 790 ml Gastric Drainage Total 20 ml # Bowel Movements 50 Laboratory Tests 02/23/19 08:14: Arterial Blood pH 7.381, Arterial Blood Partial Pressure CO2 39.0, Arterial Blood Partial Pressure O2 88.5, Arterial Blood HCO3 22.6, Arterial Blood Oxygen Saturation 95.9, Arterial Blood Base Excess -2.3L, Benny Test Positive 02/24/19 04:45: White Blood Count 6.4, Red Blood Count 3.14L, Hemoglobin 9.0L, Hematocrit 27.9L , Mean Corpuscular Volume 89, Mean Corpuscular Hemoglobin 28.8, Mean Corpuscular Hemoglobin Concent 32.4, Red Cell Distribution Width 17.1H, Platelet Count 202, Mean Platelet Volume 6.1L, Neutrophils (%) (Auto) , Lymphocytes (%) (Auto) , Monocytes (%) (Auto) , Eosinophils (%) (Auto) , Basophils (%) (Auto) , Neutrophils % (Manual) [Pending], Lymphocytes % (Manual) [Pending], Platelet Estimate [Pending], Platelet Morphology [Pending], Prothrombin Time 11.7H, Prothromb Time International Ratio 1.1, Activated Partial Thromboplast Time 31, Sodium Level 135L, Potassium Level 5.0, Chloride Level 101, Carbon Dioxide Level 24, Anion Gap 10, Blood Urea Nitrogen 59H, Creatinine 2.6H, Estimat Glomerular Filtration Rate 25.4, Glucose Level 122H, Calcium Level 8.1L, Phosphorus Level 5.0H, Magnesium Level 2.1, Total Bilirubin 0.5, Aspartate Amino Transf (AST/SGOT) 58H, Alanine Aminotransferase (ALT/SGPT) 59, Alkaline Phosphatase 105, Total Protein 5.9L, Albumin 2.4L, Globulin 3.5, Albumin/Globulin Ratio 0.7L Height (Feet): 6 Height (Inches): 0.00 Weight (Pounds): 274 General Appearance: lethargic EENT: normal ENT inspection Neck: supple Cardiovascular: normal rate Respiratory/Chest: decreased breath sounds Abdomen: normal bowel sounds, non tender, soft Extremities: non-tender Kg Ricketts MD Feb 24, 2019 06:58
--- NOTE | 2019-02-24 07:04 | General Progress Note ---
Assessment/Plan Problem List: (1) ISH (acute kidney injury) ICD Codes: N17.9 - Acute kidney failure, unspecified SNOMED: 68729388 (2) Uncontrolled type 2 diabetes mellitus with chronic kidney disease ICD Codes: E11.22 - Type 2 diabetes mellitus with diabetic chronic kidney disease; E11.65 - Type 2 diabetes mellitus with hyperglycemia SNOMED: 71628017, 216024677, 843309135 (3) HIV disease ICD Codes: B20 - Human immunodeficiency virus [HIV] disease SNOMED: 17761628 (4) Respiratory distress ICD Codes: R06.03 - Acute respiratory distress SNOMED: 985911628 Status: stable Assessment/Plan: - reduce Levemir to 6 units bid - continue Novolog sliding scale resistant scale every 4 hours Subjective ROS Limited/Unobtainable: Yes Allergies: Coded Allergies: No Known Allergies (Unverified , 02/05/13) Subjective events noted Item Value Date Time Bedside Blood Glucose 123 mg/dl H 02/24/19 0500 Bedside Blood Glucose 131 mg/dl H 02/24/19 0049 Bedside Blood Glucose 116 mg/dl 02/23/19 2036 Bedside Blood Glucose 83 mg/dl 02/23/19 1735 Objective Last 24 Hour Vital Signs Date Time Temp Pulse Resp B/P (MAP) Pulse Ox O2 Delivery O2 Flow Rate FiO2 02/24/19 07:01 78 24 99 Mechanical Ventilator 40 02/24/19 07:00 20 Mechanical Ventilator 40 02/24/19 06:58 73 24 40 02/24/19 06:55 79 24 99 Mechanical Ventilator 40 02/24/19 06:30 74 17 139/77 (97) 100 02/24/19 06:00 70 22 128/75 (92) 99 02/24/19 06:00 22 Mechanical Ventilator 40 02/24/19 05:46 148/84 02/24/19 05:45 148/84 02/24/19 05:45 148/84 02/24/19 05:30 72 24 40 02/24/19 05:30 74 19 150/79 (102) 99 02/24/19 05:00 79 17 149/52 (84) 97 02/24/19 05:00 17 Mechanical Ventilator 40 02/24/19 04:30 74 19 140/73 (95) 98 02/24/19 04:12 24 Mechanical Ventilator 40 02/24/19 04:00 Mechanical Ventilator Mechanical Ventilator 02/24/19 04:00 98.3 74 24 136/74 (94) 98 02/24/19 04:00 40 02/24/19 03:30 71 22 129/65 (86) 99 02/24/19 03:05 65 24 100 Mechanical Ventilator 40 02/24/19 03:01 64 02/24/19 03:00 22 Mechanical Ventilator 40 02/24/19 03:00 64 22 110/57 (74) 100 02/24/19 02:55 63 24 100 Mechanical Ventilator 40 02/24/19 02:55 63 24 40 02/24/19 02:30 63 23 108/67 (81) 98 02/24/19 02:00 24 Non-Rebreather 40 02/24/19 02:00 64 24 110/60 (77) 98 02/24/19 01:30 72 24 127/67 (87) 98 02/24/19 01:17 75 24 40 02/24/19 01:00 64 24 106/62 (77) 97 02/24/19 01:00 24 Mechanical Ventilator 40 02/24/19 00:30 69 21 105/60 (75) 97 02/24/19 00:00 97.4 77 24 120/57 (78) 98 02/24/19 00:00 Mechanical Ventilator Mechanical Ventilator 02/24/19 00:00 24 Mechanical Ventilator 40 02/23/19 23:40 123/70 02/23/19 23:40 123/70 02/23/19 23:30 71 24 123/70 (87) 97 02/23/19 23:10 75 24 99 Mechanical Ventilator 40 02/23/19 23:02 69 02/23/19 23:00 64 24 99 Mechanical Ventilator 40 02/23/19 23:00 69 24 152/70 (97) 100 02/23/19 23:00 64 24 40 02/23/19 23:00 24 Mechanical Ventilator 40 02/23/19 22:30 64 21 106/85 (92) 98 02/23/19 22:00 63 24 110/59 (76) 98 02/23/19 22:00 24 Mechanical Ventilator 40 02/23/19 21:39 110/61 02/23/19 21:30 64 22 110/63 (79) 99 02/23/19 21:09 66 24 40 02/23/19 21:00 67 24 106/58 (74) 99 02/23/19 20:35 69 111/54 02/23/19 20:30 70 24 111/54 (73) 99 02/23/19 20:08 21 Mechanical Ventilator 40 02/23/19 20:00 24 Mechanical Ventilator 40 02/23/19 20:00 40 02/23/19 20:00 98.7 77 24 121/61 (81) 99 02/23/19 20:00 Mechanical Ventilator Mechanical Ventilator 02/23/19 19:48 89 02/23/19 19:35 71 24 100 Mechanical Ventilator 40 02/23/19 19:30 75 21 132/67 (88) 98 02/23/19 19:25 75 25 100 Mechanical Ventilator 40 02/23/19 19:23 75 25 40 02/23/19 19:00 24 Mechanical Ventilator 40 02/23/19 19:00 74 24 130/64 (86) 99 02/23/19 18:45 74 24 124/73 (90) 98 02/23/19 18:00 76 24 150/78 (102) 97 02/23/19 18:00 24 Mechanical Ventilator 40 02/23/19 17:45 79 24 150/78 (102) 97 02/23/19 17:32 144/68 02/23/19 17:31 144/68 02/23/19 17:30 75 24 132/67 (88) 97 02/23/19 17:15 73 24 144/68 (93) 97 02/23/19 17:00 80 24 152/88 (109) 97 02/23/19 17:00 24 Mechanical Ventilator 40 02/23/19 17:00 68 24 40 02/23/19 16:51 24 Mechanical Ventilator 40 02/23/19 16:50 24 Mechanical Ventilator 40 02/23/19 16:00 40 02/23/19 16:00 98.1 70 24 122/61 (81) 99 02/23/19 16:00 Mechanical Ventilator Mechanical Ventilator 02/23/19 16:00 24 Mechanical Ventilator 40 02/23/19 16:00 70 02/23/19 15:12 68 24 97 Mechanical Ventilator 40 02/23/19 15:04 69 24 96 Mechanical Ventilator 40 02/23/19 15:04 69 24 40 02/23/19 15:00 24 Mechanical Ventilator 40 02/23/19 15:00 69 24 128/60 (82) 97 02/23/19 14:00 24 Mechanical Ventilator 40 02/23/19 14:00 70 24 131/87 (102) 97 02/23/19 13:42 136/68 02/23/19 13:31 25 Mechanical Ventilator 40 02/23/19 13:00 24 Mechanical Ventilator 40 02/23/19 13:00 82 24 122/80 (94) 97 02/23/19 12:57 69 29 40 02/23/19 12:00 40 02/23/19 12:00 Mechanical Ventilator Mechanical Ventilator 02/23/19 12:00 69 02/23/19 12:00 24 Mechanical Ventilator 40 02/23/19 12:00 98.3 69 24 135/67 (89) 99 02/23/19 11:51 129/66 02/23/19 11:50 129/66 02/23/19 11:33 66 24 99 Mechanical Ventilator 40 02/23/19 11:23 63 24 97 Mechanical Ventilator 40 02/23/19 11:23 63 24 40 02/23/19 11:00 69 24 150/78 (102) 97 02/23/19 11:00 24 Mechanical Ventilator 40 02/23/19 10:39 28 Mechanical Ventilator 40 02/23/19 10:00 65 24 133/70 (91) 97 02/23/19 10:00 24 Mechanical Ventilator 40 02/23/19 09:20 74 134/66 02/23/19 09:19 73 134/72 02/23/19 09:00 24 Mechanical Ventilator 40 02/23/19 09:00 73 24 134/66 (88) 99 02/23/19 08:55 73 28 40 02/23/19 08:00 73 02/23/19 08:00 98.3 72 24 124/74 (91) 99 02/23/19 08:00 24 Mechanical Ventilator 40 02/23/19 08:00 40 02/23/19 08:00 Mechanical Ventilator Mechanical Ventilator 02/23/19 07:05 72 24 100 Mechanical Ventilator 40 Intake and Output 02/23/19 02/24/19 19:00 07:00 Intake Total 878.0 ml 2209.0 ml Output Total 1120 ml 810 ml Balance -242.0 ml 1399.0 ml IV Total 878.0 ml 1999.0 ml Other 210 ml Output Urine Total 1120 ml 790 ml Gastric Drainage Total 20 ml # Bowel Movements 50 Laboratory Tests 02/23/19 08:14: Arterial Blood pH 7.381, Arterial Blood Partial Pressure CO2 39.0, Arterial Blood Partial Pressure O2 88.5, Arterial Blood HCO3 22.6, Arterial Blood Oxygen Saturation 95.9, Arterial Blood Base Excess -2.3L, Benny Test Positive 02/24/19 04:45: White Blood Count 6.4, Red Blood Count 3.14L, Hemoglobin 9.0L, Hematocrit 27.9L , Mean Corpuscular Volume 89, Mean Corpuscular Hemoglobin 28.8, Mean Corpuscular Hemoglobin Concent 32.4, Red Cell Distribution Width 17.1H, Platelet Count 202, Mean Platelet Volume 6.1L, Neutrophils (%) (Auto) , Lymphocytes (%) (Auto) , Monocytes (%) (Auto) , Eosinophils (%) (Auto) , Basophils (%) (Auto) , Neutrophils % (Manual) [Pending], Lymphocytes % (Manual) [Pending], Platelet Estimate [Pending], Platelet Morphology [Pending], Prothrombin Time 11.7H, Prothromb Time International Ratio 1.1, Activated Partial Thromboplast Time 31, Sodium Level 135L, Potassium Level 5.0, Chloride Level 101, Carbon Dioxide Level 24, Anion Gap 10, Blood Urea Nitrogen 59H, Creatinine 2.6H, Estimat Glomerular Filtration Rate 25.4, Glucose Level 122H, Calcium Level 8.1L, Phosphorus Level 5.0H, Magnesium Level 2.1, Total Bilirubin 0.5, Aspartate Amino Transf (AST/SGOT) 58H, Alanine Aminotransferase (ALT/SGPT) 59, Alkaline Phosphatase 105, Total Protein 5.9L, Albumin 2.4L, Globulin 3.5, Albumin/Globulin Ratio 0.7L Height (Feet): 6 Height (Inches): 0.00 Weight (Pounds): 274 General Appearance: severe distress Neck: normal alignment Cardiovascular: normal rate Respiratory/Chest: decreased breath sounds Abdomen: normal bowel sounds Objective Current Medications Medications (Trade) Dose Ordered Sig/Marquis Route PRN Reason Start Time Stop Time Status Last Admin Dose Admin Acetaminophen (Tylenol) 650 mg Q4H PRN ORAL Mild Pain (Pain Scale 1-3) 02/07/19 11:15 03/08/19 17:29 02/22/19 14:37 Acetaminophen/ Butalbital/ Caffeine (Fioricet) 1 tab Q8H PRN ORAL For Headache 02/08/19 17:15 03/10/19 17:14 Albuterol/ Ipratropium (Albuterol/ Ipratropium) 3 ml Q4HRT HHN 02/20/19 03:00 02/25/19 02:59 02/24/19 07:01 Amlodipine Besylate (Norvasc) 10 mg DAILY NG 02/15/19 09:00 03/14/19 15:59 02/23/19 09:20 Artificial Tears (Lacri-Lube) 1 applic AC+HS BOTH EYES 02/18/19 06:30 03/20/19 06:29 02/24/19 06:12 Bisacodyl (Dulcolax) 5 mg DAILYPRN PRN ORAL Constipation 02/08/19 17:15 03/10/19 17:14 02/18/19 20:13 Chlorhexidine Gluconate (Jessy-Hex 2%) 1 applic DAILY@2000 TOPIC 02/13/19 20:00 03/15/19 19:59 02/23/19 19:40 Clonidine HCl (Catapres Tab) 0.1 mg EVERY 6 HOURS NG 02/20/19 12:00 03/19/19 13:59 02/24/19 05:45 Dextrose (Dextrose 50%) 25 ml Q30M PRN IV Hypoglycemia 02/20/19 06:45 03/22/19 06:44 Dextrose (Dextrose 50%) 50 ml Q30M PRN IV Hypoglycemia 02/20/19 06:45 03/22/19 06:44 02/20/19 08:49 Dextrose/Sodium Chloride 1,000 ml @ 75 mls/hr [id number] IV 02/22/19 12:00 03/24/19 11:59 02/24/19 04:14 Docusate Sodium (Colace) 100 mg TID GT 02/12/19 18:00 03/12/19 08:59 02/23/19 17:31 Fentanyl Citrate 2500 mcg/Sodium Chloride 250 ml @ 0 mls/hr Q24H IV 02/23/19 20:30 03/02/19 20:29 02/24/19 04:12 Fluconazole/ Sodium Chloride 100 ml @ 100 mls/hr Q24H IV 02/20/19 18:00 02/27/19 17:59 02/23/19 17:32 Guaifenesin (Mucinex ER) 600 mg TWICE A DAY ORAL 02/07/19 18:00 03/09/19 08:59 02/23/19 17:32 Hydralazine HCl (Apresoline) 10 mg Q4H PRN IV bp over 165 syst 02/17/19 10:15 03/19/19 10:14 02/19/19 14:45 Hydralazine HCl (Apresoline) 50 mg Q8HR NG 02/22/19 14:00 03/21/19 21:59 02/24/19 05:45 Insulin Aspart (NovoLOG) EVERY 4 HOURS SUBQ 02/15/19 21:00 03/17/19 20:59 02/24/19 00:49 Insulin Detemir (Levemir) 10 units BID SUBQ 02/23/19 09:00 03/22/19 08:59 02/23/19 10:43 Isosorbide Dinitrate (Isordil) 20 mg Q6HR NG 02/22/19 12:00 03/15/19 12:59 02/24/19 05:46 Lorazepam (Ativan 2mg/ml 1ml) 2 mg Q2H PRN IV agitation/restlessness 02/19/19 22:00 02/26/19 21:44 02/24/19 04:23 Lorazepam (Ativan) 1 mg Q4H PRN ORAL For Anxiety 02/19/19 15:15 02/26/19 15:14 02/19/19 15:21 Methylprednisolone Sodium Succinate (Solu-MEDROL) 10 mg EVERY 12 HOURS IVP 02/19/19 21:00 03/12/19 20:59 02/23/19 20:34 Metolazone (Zaroxolyn) 10 mg DAILY NG 02/19/19 10:00 03/21/19 09:59 02/23/19 09:20 Metoprolol Tartrate (Lopressor) 100 mg Q12HR ORAL 02/22/19 21:00 03/08/19 20:59 02/23/19 20:35 Midazolam HCl (Versed 2mg/2ml vial) 1 mg Q2H PRN IVP Agitation 02/13/19 08:45 03/15/19 08:44 02/23/19 05:01 Neomycin/ Polymyxin/ Dexamethasone (Maxitrol Opth Oint) 1 applic BEDTIME BOTH EYES 02/18/19 21:00 03/20/19 20:59 02/23/19 20:34 Nitroglycerin (Ntg) 0.4 mg Q5M PRN SL Prn Chest Pain 02/07/19 11:00 03/08/19 17:29 02/08/19 07:42 Ondansetron HCl (Zofran) 4 mg Q6H PRN IVP Nausea & Vomiting 02/07/19 11:15 03/08/19 11:14 02/09/19 00:58 Pantoprazole (Protonix) 40 mg EVERY 12 HOURS IVP 02/22/19 21:00 03/24/19 20:59 02/23/19 20:34 Patient Own Medication (Patient's Own Med) 1 ea BID ORAL 02/07/19 18:00 03/09/19 17:59 02/23/19 17:32 Patient Own Medication (Patient's Own Med) 1 ea Q48H ORAL 02/18/19 09:00 03/20/19 08:59 02/22/19 08:53 Patient Own Medication (Patient's Own Med) 2 ea DAILY ORAL 02/08/19 09:00 03/10/19 08:59 02/23/19 09:19 Piperacillin Sod/ Tazobactam Sod 3.375 gm/Sodium Chloride 110 ml @ 27.5 mls/hr EVERY 8 HOURS IVPB 02/20/19 14:00 02/25/19 13:59 02/24/19 05:45 Polyethylene Glycol (Miralax) 17 gm BEDTIME ORAL 02/08/19 21:00 03/10/19 20:59 02/23/19 20:34 Sennosides (Senokot) 8.6 mg DAILY ORAL 02/13/19 12:00 03/15/19 11:59 02/23/19 09:20 Trimethoprim/ Sulfamethoxazole 25 ml/Dextrose 575 ml @ 383.333 mls/hr [id number] BACTRIM IV 02/20/19 12:00 02/27/19 11:59 02/23/19 23:39 Carlito Nichols MD Feb 24, 2019 07:04
--- NOTE | 2019-02-24 07:15 | NUR ---
HAND-OFF: Report given to TESSA GUADARRAMA.
--- NOTE | 2019-02-24 07:47 | NUR ---
RESPIRATORY NOTES: Received Patient on Vent settings ACVC 24, VT 550, FIO2 40%, PEEP +5. Patient has a 7.5 ETT at 24cm at the lip, secured with anchorfast. Bilateral rhonchi noted throughout both lung almaguer. Suction thick white phipps secretions Q2 and PRN through ETT. Vent alarms are on and audible. Vent plugged into red outlet. Will continue to monitor throughout the day.
--- NOTE | 2019-02-24 08:43 | NUR ---
RESPIRATORY NOTES: Attempted to wean on PS +8 PEEP +5 Fio2 40%. Patient became extremely agitated and RR <10. Salty ZARATE aware. Placed back onto ACVC.
--- NOTE | 2019-02-24 09:00 | NUR ---
NURSE NOTES: Patient attempted to be weaning but failed with rr of greater than 40 per minute, ANG was unable to obtain, patient placed back t original setting of AC 24, TV: 550, FIO2 40 % and peep of 5,
[2019-02-24] MEDS: Sennosides 8.6mg tab ORAL SCH (09:24)
[2019-02-24] MEDS: TRIMETHOPRIM IV SCH ×3 (09:24→23:37)
[2019-02-24] MEDS: D5W IV SCH ×3 (09:24→23:37)
[2019-02-24] MEDS: Solu-MEDROL 40mg Inj IVP SCH ×2 (09:24→20:38)
[2019-02-24] MEDS: SULFAMETHOXAZOLE IV SCH ×3 (09:24→23:37)
[2019-02-24] MEDS: guaiFENesin ER 600mg tab ORAL SCH ×2 (09:25→17:26)
[2019-02-24] MEDS: Pantoprazole Inj IVP SCH ×2 (09:25→20:38)
[2019-02-24] MEDS: Docusate 100mg/10ml Liq GT SCH ×3 (09:25→17:26)
[2019-02-24] MEDS: TENOFOVIR DISOPROXIL FUMARATE 300 MG ORAL SCH (09:26)
[2019-02-24] MEDS: RALTEGRAVIR 400 MG ORAL SCH ×2 (09:26→17:26)
[2019-02-24] MEDS: ETRAVIRINE 200 MG ORAL SCH (09:27)
--- NOTE | 2019-02-24 10:02 | Diagnostic Imaging Report ---
EXAM: XR Chest, 1 View CLINICAL HISTORY: F/U TECHNIQUE: Frontal view of the chest. COMPARISON: Chest x-ray dated 02/22/19 FINDINGS: Lungs: Unchanged diffuse interstitial and alveolar opacities. Unchanged appearance of a retrocardiac opacity which may represent atelectasis versus infiltrate. Pleural space: Suggestion of a small left layering pleural effusion, unchanged. Heart: Cardiomegaly, unchanged. Mediastinum: Unremarkable. Bones/joints: Unremarkable. Tubes, lines and devices: Stable positioning of the endotracheal tube. Tip of the NG tube is now well seen. Telemetry leads overlie the thorax. IMPRESSION: No significant interval change compared to the prior chest x-ray. Cardiomegaly with diffuse interstitial and alveolar opacities, which may represent pulmonary edema versus pneumonia.
[2019-02-24] MEDS: Levemir Flexpen SUBQ SCH ×2 (10:22→17:36)
--- NOTE | 2019-02-24 12:31 | General Progress Note ---
Assessment/Plan Status: stable Assessment/Plan: 58 y Male admitted to the hospital due to fever, shortness of breath and chest pain. # Multilobar pneumonia in patient with HIV - Broad sp atbx started. Will continue Zosyn, Vancomycin, Azithromycin, TM-SMX - Flucon - Droplet precaution - Flu swab ordered. - Oxygen support, ventilatory support as not able to wean off ventilator - ID consult today appreciated. AFB, cocci, hystoplasma, legionella, ordered. - CT chest ordered today. Consider follow up pulmonary evaluation due to multi nodular infiltrates. # Hypoxemic respiratory failure - Bipap as needed, transition to O2 via NC when able - Due to pneumonia # Chest pain - EKG with bifascicular block RBB and LAFB, no ST changes. - Trend troponin x3 completed - ECHO completed with no WMA and preserved EF. Dr. Francois consulted. Consideration for outpatient cath vs possibly myocarditis due to underlying viral infection. No evidence of Takotsubo per TTE. - NGT prn - Pain control with morphine # HIV - Continue HARRT - VL is undetectable per patient report. T cell count > 400 - CD 4 count 191 # HTN - Resume home medication # [place]ordeline hyponatremia - Monitor - good response to NS # CKD 2-3 - Trend renal function DVT and GI ppx Full code Subjective ROS Limited/Unobtainable: Yes Allergies: Coded Allergies: No Known Allergies (Unverified , 02/05/13) Objective Last 24 Hour Vital Signs Date Time Temp Pulse Resp B/P (MAP) Pulse Ox O2 Delivery O2 Flow Rate FiO2 02/24/19 11:30 67 24 121/64 (83) 97 02/24/19 11:00 75 24 131/68 (89) 99 02/24/19 11:00 24 Mechanical Ventilator 40 02/24/19 10:44 72 24 100 Mechanical Ventilator 40 02/24/19 10:42 72 26 40 02/24/19 10:36 73 24 100 Mechanical Ventilator 40 02/24/19 10:30 71 24 125/61 (82) 100 02/24/19 10:00 71 24 136/72 (93) 98 02/24/19 10:00 24 Mechanical Ventilator 40 02/24/19 09:30 80 24 136/65 (88) 98 02/24/19 09:25 81 145/72 7/6/19 09:25 80 145/72 02/24/19 09:00 24 Mechanical Ventilator 40 02/24/19 09:00 81 24 145/72 (96) 98 02/24/19 08:36 77 24 40 02/24/19 08:30 82 24 153/66 (95) 98 02/24/19 08:00 82 02/24/19 08:00 24 Mechanical Ventilator 40 02/24/19 08:00 40 02/24/19 08:00 Mechanical Ventilator Mechanical Ventilator 02/24/19 08:00 98.7 75 24 140/73 (95) 96 02/24/19 07:30 72 24 122/74 (90) 96 02/24/19 07:01 78 24 99 Mechanical Ventilator 40 02/24/19 07:00 72 24 132/65 (87) 96 02/24/19 07:00 20 Mechanical Ventilator 40 02/24/19 06:58 73 24 40 02/24/19 06:55 79 24 99 Mechanical Ventilator 40 02/24/19 06:30 74 17 139/77 (97) 100 02/24/19 06:00 70 22 128/75 (92) 99 02/24/19 06:00 22 Mechanical Ventilator 40 02/24/19 05:46 148/84 02/24/19 05:45 148/84 02/24/19 05:45 148/84 02/24/19 05:30 72 24 40 02/24/19 05:30 74 19 150/79 (102) 99 02/24/19 05:00 79 17 149/52 (84) 97 02/24/19 05:00 17 Mechanical Ventilator 40 02/24/19 04:30 74 19 140/73 (95) 98 02/24/19 04:12 24 Mechanical Ventilator 40 02/24/19 04:00 Mechanical Ventilator Mechanical Ventilator 02/24/19 04:00 98.3 74 24 136/74 (94) 98 02/24/19 04:00 40 02/24/19 03:30 71 22 129/65 (86) 99 02/24/19 03:05 65 24 100 Mechanical Ventilator 40 02/24/19 03:01 64 02/24/19 03:00 22 Mechanical Ventilator 40 02/24/19 03:00 64 22 110/57 (74) 100 02/24/19 02:55 63 24 100 Mechanical Ventilator 40 02/24/19 02:55 63 24 40 02/24/19 02:30 63 23 108/67 (81) 98 02/24/19 02:00 24 Non-Rebreather 40 02/24/19 02:00 64 24 110/60 (77) 98 02/24/19 01:30 72 24 127/67 (87) 98 02/24/19 01:17 75 24 40 02/24/19 01:00 64 24 106/62 (77) 97 02/24/19 01:00 24 Mechanical Ventilator 40 02/24/19 00:30 69 21 105/60 (75) 97 02/24/19 00:00 97.4 77 24 120/57 (78) 98 02/24/19 00:00 Mechanical Ventilator Mechanical Ventilator 02/24/19 00:00 24 Mechanical Ventilator 40 02/23/19 23:40 123/70 02/23/19 23:40 123/70 02/23/19 23:30 71 24 123/70 (87) 97 02/23/19 23:10 75 24 99 Mechanical Ventilator 40 02/23/19 23:02 69 02/23/19 23:00 64 24 99 Mechanical Ventilator 40 02/23/19 23:00 69 24 152/70 (97) 100 02/23/19 23:00 64 24 40 02/23/19 23:00 24 Mechanical Ventilator 40 02/23/19 22:30 64 21 106/85 (92) 98 02/23/19 22:00 63 24 110/59 (76) 98 02/23/19 22:00 24 Mechanical Ventilator 40 02/23/19 21:39 110/61 02/23/19 21:30 64 22 110/63 (79) 99 02/23/19 21:09 66 24 40 02/23/19 21:00 67 24 106/58 (74) 99 02/23/19 20:35 69 111/54 02/23/19 20:30 70 24 111/54 (73) 99 02/23/19 20:08 21 Mechanical Ventilator 40 02/23/19 20:00 24 Mechanical Ventilator 40 02/23/19 20:00 40 02/23/19 20:00 98.7 77 24 121/61 (81) 99 02/23/19 20:00 Mechanical Ventilator Mechanical Ventilator 02/23/19 19:48 89 02/23/19 19:35 71 24 100 Mechanical Ventilator 40 02/23/19 19:30 75 21 132/67 (88) 98 02/23/19 19:25 75 25 100 Mechanical Ventilator 40 02/23/19 19:23 75 25 40 02/23/19 19:00 24 Mechanical Ventilator 40 02/23/19 19:00 74 24 130/64 (86) 99 02/23/19 18:45 74 24 124/73 (90) 98 02/23/19 18:00 76 24 150/78 (102) 97 02/23/19 18:00 24 Mechanical Ventilator 40 02/23/19 17:45 79 24 150/78 (102) 97 02/23/19 17:32 144/68 02/23/19 17:31 144/68 02/23/19 17:30 75 24 132/67 (88) 97 02/23/19 17:15 73 24 144/68 (93) 97 02/23/19 17:00 80 24 152/88 (109) 97 02/23/19 17:00 24 Mechanical Ventilator 40 02/23/19 17:00 68 24 40 02/23/19 16:51 24 Mechanical Ventilator 40 02/23/19 16:50 24 Mechanical Ventilator 40 02/23/19 16:00 40 02/23/19 16:00 98.1 70 24 122/61 (81) 99 02/23/19 16:00 Mechanical Ventilator Mechanical Ventilator 02/23/19 16:00 24 Mechanical Ventilator 40 02/23/19 16:00 70 02/23/19 15:12 68 24 97 Mechanical Ventilator 40 02/23/19 15:04 69 24 96 Mechanical Ventilator 40 02/23/19 15:04 69 24 40 02/23/19 15:00 24 Mechanical Ventilator 40 02/23/19 15:00 69 24 128/60 (82) 97 02/23/19 14:00 24 Mechanical Ventilator 40 02/23/19 14:00 70 24 131/87 (102) 97 02/23/19 13:42 136/68 02/23/19 13:31 25 Mechanical Ventilator 40 02/23/19 13:00 24 Mechanical Ventilator 40 02/23/19 13:00 82 24 122/80 (94) 97 02/23/19 12:57 69 29 40 Intake and Output 02/23/19 02/24/19 18:59 06:59 Intake Total 808.0 ml 2231.5 ml Output Total 1175 ml 880 ml Balance -367.0 ml 1351.5 ml IV Total 808.0 ml 2021.5 ml Other 210 ml Output Urine Total 1175 ml 860 ml Gastric Drainage Total 20 ml # Bowel Movements 50 Laboratory Tests 02/24/19 04:45: White Blood Count 6.4, Red Blood Count 3.14L, Hemoglobin 9.0L, Hematocrit 27.9L , Mean Corpuscular Volume 89, Mean Corpuscular Hemoglobin 28.8, Mean Corpuscular Hemoglobin Concent 32.4, Red Cell Distribution Width 17.1H, Platelet Count 202, Mean Platelet Volume 6.1L, Neutrophils (%) (Auto) , Lymphocytes (%) (Auto) , Monocytes (%) (Auto) , Eosinophils (%) (Auto) , Basophils (%) (Auto) , Differential Total Cells Counted 100, Neutrophils % ( Manual) 84H, Lymphocytes % (Manual) 9L, Monocytes % (Manual) 7, Eosinophils % ( Manual) 0, Basophils % (Manual) 0, Band Neutrophils 0, Platelet Estimate Adequate, Platelet Morphology Normal, Anisocytosis 1+, Prothrombin Time 11.7H, Prothromb Time International Ratio 1.1, Activated Partial Thromboplast Time 31, Sodium Level 135L, Potassium Level 5.0, Chloride Level 101, Carbon Dioxide Level 24, Anion Gap 10, Blood Urea Nitrogen 59H, Creatinine 2.6H, Estimat Glomerular Filtration Rate 25.4, Glucose Level 122H, Calcium Level 8.1L, Phosphorus Level 5.0H, Magnesium Level 2.1, Total Bilirubin 0.5, Aspartate Amino Transf (AST/SGOT) 58H, Alanine Aminotransferase (ALT/SGPT) 59, Alkaline Phosphatase 105, Total Protein 5.9L, Albumin 2.4L, Globulin 3.5, Albumin/ Globulin Ratio 0.7L Height (Feet): 6 Height (Inches): 0.00 Weight (Pounds): 274 General Appearance: moderate distress, other - sedated EENT: other - intubated, NGT Neck: supple Cardiovascular: normal rate, regular rhythm Respiratory/Chest: lungs clear, normal breath sounds Abdomen: normal bowel sounds, non tender Extremities: other - Left femoral dialysis catheter, L UE peripheral IV Edema: 2+ Generalized Neurologic: no Babinski, unresponsive, other - sedated with fentanyl Geovani Hawley MD Feb 24, 2019 12:31
--- NOTE | 2019-02-24 12:45 | NUR ---
NURSE NOTES: Dr. Hawley updated at the bedside of patient progress, unable to wean this morning due to him becoming agitated and rr increased to greater than 40. oral care provided at the bedside, will continue plan of care.
--- NOTE | 2019-02-24 14:30 | NUR ---
NURSE NOTES: Dr. Mcdonald updated on patient urine stratus of 75-125ml/hr. urine remains yellow free flowing through smith. no verbal orders given at this time.
--- NOTE | 2019-02-24 14:40 | NUR ---
NURSE NOTES: Dr. Francois updated on patient heart rate remaining at sinus rhythm with no arrhythmias noted, made aware of clonidine being held since sbp was below 120. no verbal orders given at this time.
--- NOTE | 2019-02-24 14:51 | Cardiac Electrophysiology PN ---
Assessment/Plan Assessment/Plan 1. Non-ST elevation myocardial infarction with peak troponin of more than 10, down to 3.[address]-T wave abnormalities. Continue Lipitor, Imdur and metoprolol Hold off on Cardiac catheterization for now 2. Hypertension. Metoprolol 100 bid, Isordil 20 q6 and hydralazine 50 q 8 hr 3. Respiratory failure due to Multilobar Pneumonia. Extubated 02/19/19. Reintubated 02/20/19 Likely needs Tracheostomy 4. Hyperlipidemia. On Lipitor. 5. Human immunodeficiency virus. On anti-retroviral therapy with undetectable viral load. 6. ARF Cr 3.5. 7. Bleeding from ETT and NG tube. S/P PRBC. Off Aspirin and Lovenox DW RN Subjective Subjective In ICU on the vent and fentanyl drip 270 mcg. RN at bedside Objective Last 24 Hour Vital Signs Date Time Temp Pulse Resp B/P (MAP) Pulse Ox O2 Delivery O2 Flow Rate FiO2 02/24/19 14:22 134/70 02/24/19 14:15 24 Mechanical Ventilator 40 02/24/19 14:00 72 24 134/70 (91) 100 02/24/19 13:00 68 24 130/71 (90) 97 02/24/19 12:40 118/58 02/24/19 12:35 69 26 40 02/24/19 12:30 65 24 118/58 (78) 98 02/24/19 12:00 98.1 64 24 121/68 (85) 98 02/24/19 12:00 118/58 02/24/19 12:00 40 02/24/19 12:00 Mechanical Ventilator Mechanical Ventilator 02/24/19 12:00 67 02/24/19 11:30 67 24 121/64 (83) 97 02/24/19 11:00 75 24 131/68 (89) 99 02/24/19 11:00 24 Mechanical Ventilator 40 02/24/19 10:44 72 24 100 Mechanical Ventilator 40 02/24/19 10:42 72 26 40 02/24/19 10:36 73 24 100 Mechanical Ventilator 40 02/24/19 10:30 71 24 125/61 (82) 100 02/24/19 10:00 71 24 136/72 (93) 98 02/24/19 10:00 24 Mechanical Ventilator 40 7/6/19 09:30 80 24 136/65 (88) 98 02/24/19 09:25 81 145/72 02/24/19 09:25 80 145/72 02/24/19 09:00 24 Mechanical Ventilator 40 02/24/19 09:00 81 24 145/72 (96) 98 02/24/19 08:36 77 24 40 02/24/19 08:30 82 24 153/66 (95) 98 02/24/19 08:00 82 02/24/19 08:00 24 Mechanical Ventilator 40 02/24/19 08:00 40 02/24/19 08:00 Mechanical Ventilator Mechanical Ventilator 02/24/19 08:00 98.7 75 24 140/73 (95) 96 02/24/19 07:30 72 24 122/74 (90) 96 02/24/19 07:01 78 24 99 Mechanical Ventilator 40 02/24/19 07:00 72 24 132/65 (87) 96 02/24/19 07:00 20 Mechanical Ventilator 40 02/24/19 06:58 73 24 40 02/24/19 06:55 79 24 99 Mechanical Ventilator 40 02/24/19 06:30 74 17 139/77 (97) 100 02/24/19 06:00 70 22 128/75 (92) 99 02/24/19 06:00 22 Mechanical Ventilator 40 02/24/19 05:46 148/84 02/24/19 05:45 148/84 02/24/19 05:45 148/84 02/24/19 05:30 72 24 40 02/24/19 05:30 74 19 150/79 (102) 99 02/24/19 05:00 79 17 149/52 (84) 97 02/24/19 05:00 17 Mechanical Ventilator 40 02/24/19 04:30 74 19 140/73 (95) 98 02/24/19 04:12 24 Mechanical Ventilator 40 02/24/19 04:00 Mechanical Ventilator Mechanical Ventilator 02/24/19 04:00 98.3 74 24 136/74 (94) 98 02/24/19 04:00 40 02/24/19 03:30 71 22 129/65 (86) 99 02/24/19 03:05 65 24 100 Mechanical Ventilator 40 02/24/19 03:01 64 02/24/19 03:00 22 Mechanical Ventilator 40 02/24/19 03:00 64 22 110/57 (74) 100 02/24/19 02:55 63 24 100 Mechanical Ventilator 40 02/24/19 02:55 63 24 40 02/24/19 02:30 63 23 108/67 (81) 98 02/24/19 02:00 24 Non-Rebreather 40 02/24/19 02:00 64 24 110/60 (77) 98 02/24/19 01:30 72 24 127/67 (87) 98 02/24/19 01:17 75 24 40 02/24/19 01:00 64 24 106/62 (77) 97 02/24/19 01:00 24 Mechanical Ventilator 40 02/24/19 00:30 69 21 105/60 (75) 97 02/24/19 00:00 97.4 77 24 120/57 (78) 98 02/24/19 00:00 Mechanical Ventilator Mechanical Ventilator 02/24/19 00:00 24 Mechanical Ventilator 40 02/23/19 23:40 123/70 02/23/19 23:40 123/70 02/23/19 23:30 71 24 123/70 (87) 97 02/23/19 23:10 75 24 99 Mechanical Ventilator 40 02/23/19 23:02 69 02/23/19 23:00 64 24 99 Mechanical Ventilator 40 02/23/19 23:00 69 24 152/70 (97) 100 02/23/19 23:00 64 24 40 02/23/19 23:00 24 Mechanical Ventilator 40 02/23/19 22:30 64 21 106/85 (92) 98 02/23/19 22:00 63 24 110/59 (76) 98 02/23/19 22:00 24 Mechanical Ventilator 40 02/23/19 21:39 110/61 02/23/19 21:30 64 22 110/63 (79) 99 02/23/19 21:09 66 24 40 02/23/19 21:00 67 24 106/58 (74) 99 02/23/19 20:35 69 111/54 02/23/19 20:30 70 24 111/54 (73) 99 02/23/19 20:08 21 Mechanical Ventilator 40 02/23/19 20:00 24 Mechanical Ventilator 40 02/23/19 20:00 40 02/23/19 20:00 98.7 77 24 121/61 (81) 99 7/5/19 20:00 Mechanical Ventilator Mechanical Ventilator 02/23/19 19:48 89 02/23/19 19:35 71 24 100 Mechanical Ventilator 40 02/23/19 19:30 75 21 132/67 (88) 98 02/23/19 19:25 75 25 100 Mechanical Ventilator 40 02/23/19 19:23 75 25 40 02/23/19 19:00 24 Mechanical Ventilator 40 02/23/19 19:00 74 24 130/64 (86) 99 02/23/19 18:45 74 24 124/73 (90) 98 02/23/19 18:00 76 24 150/78 (102) 97 02/23/19 18:00 24 Mechanical Ventilator 40 02/23/19 17:45 79 24 150/78 (102) 97 02/23/19 17:32 144/68 02/23/19 17:31 144/68 02/23/19 17:30 75 24 132/67 (88) 97 02/23/19 17:15 73 24 144/68 (93) 97 02/23/19 17:00 80 24 152/88 (109) 97 02/23/19 17:00 24 Mechanical Ventilator 40 02/23/19 17:00 68 24 40 02/23/19 16:51 24 Mechanical Ventilator 40 02/23/19 16:50 24 Mechanical Ventilator 40 02/23/19 16:00 40 02/23/19 16:00 98.1 70 24 122/61 (81) 99 02/23/19 16:00 Mechanical Ventilator Mechanical Ventilator 02/23/19 16:00 24 Mechanical Ventilator 40 02/23/19 16:00 70 02/23/19 15:12 68 24 97 Mechanical Ventilator 40 02/23/19 15:04 69 24 96 Mechanical Ventilator 40 02/23/19 15:04 69 24 40 02/23/19 15:00 24 Mechanical Ventilator 40 02/23/19 15:00 69 24 128/60 (82) 97 Intake and Output 02/23/19 02/24/19 18:59 06:59 Intake Total 808.0 ml 2231.5 ml Output Total 1175 ml 880 ml Balance -367.0 ml 1351.5 ml IV Total 808.0 ml 2021.5 ml Other 210 ml Output Urine Total 1175 ml 860 ml Gastric Drainage Total 20 ml # Bowel Movements 50 Laboratory Tests Test 02/24/19 04:45 White Blood Count 6.4 K/UL (4.8-10.8) Red Blood Count 3.14 M/UL (4.70-6.10) L Hemoglobin 9.0 G/DL (14.2-18.0) L Hematocrit 27.9 % (42.0-52.0) L Mean Corpuscular Volume 89 FL (80-99) Mean Corpuscular Hemoglobin 28.8 PG (27.0-31.0) Mean Corpuscular Hemoglobin Concent 32.4 G/DL (32.0-36.0) Red Cell Distribution Width 17.1 % (11.6-14.8) H Platelet Count 202 K/UL (150-450) Mean Platelet Volume 6.1 FL (6.5-10.1) L Neutrophils (%) (Auto) % (45.0-75.0) Lymphocytes (%) (Auto) % (20.0-45.0) Monocytes (%) (Auto) % (1.0-10.0) Eosinophils (%) (Auto) % (0.0-3.0) Basophils (%) (Auto) % (0.0-2.0) Differential Total Cells Counted 100 Neutrophils % (Manual) 84 % (45-75) H Lymphocytes % (Manual) 9 % (20-45) L Monocytes % (Manual) 7 % (1-10) Eosinophils % (Manual) 0 % (0-3) Basophils % (Manual) 0 % (0-2) Band Neutrophils 0 % (0-8) Platelet Estimate Adequate Platelet Morphology Normal Anisocytosis 1+ Prothrombin Time 11.7 SEC (9.30-11.50) H Prothromb Time International Ratio 1.1 (0.9-1.1) Activated Partial Thromboplast Time 31 SEC (23-33) Sodium Level 135 MMOL/L (136-145) L Potassium Level 5.0 MMOL/L (3.5-5.1) Chloride Level 101 MMOL/L (98-107) Carbon Dioxide Level 24 MMOL/L (21-32) Anion Gap 10 mmol/L (5-15) Blood Urea Nitrogen 59 mg/dL (7-18) H Creatinine 2.6 MG/DL (0.55-1.30) H Estimat Glomerular Filtration Rate 25.4 mL/min (>60) Glucose Level 122 MG/DL (74-106) H Calcium Level 8.1 MG/DL (8.5-10.1) L Phosphorus Level 5.0 MG/DL (2.5-4.9) H Magnesium Level 2.1 MG/DL (1.8-2.4) Total Bilirubin 0.5 MG/DL (0.2-1.0) Aspartate Amino Transf (AST/SGOT) 58 U/L (15-37) H Alanine Aminotransferase (ALT/SGPT) 59 U/L (12-78) Alkaline Phosphatase 105 U/L (46-116) Total Protein 5.9 G/DL (6.4-8.2) L Albumin 2.4 G/DL (3.4-5.0) L Globulin 3.5 g/dL Albumin/Globulin Ratio 0.7 (1.0-2.7) L Objective HEAD AND NECK: No JVD.Orally intubated with NG tube LUNGS: Coarse rhonchi. CARDIOVASCULAR: Regular S1 and S2 with no gallop or murmur. ABDOMEN: Soft. EXTREMITIES: 1 plus pitting edema. Murray Francois MD Feb 24, 2019 14:51
--- NOTE | 2019-02-24 15:54 | Nephrology Progress Note ---
Assessment/Plan Problem List: (1) ISH (acute kidney injury) Assessment: Cr lowering (2) HIV (human immunodeficiency virus infection) (3) NSTEMI (non-ST elevated myocardial infarction) Assessment: troponin decreasing (4) Hypoxia (5) Anemia (6) Diabetes Assessment Acute Renal failure- Cr leveling- Urine out put is good Acidosis improved Acute respiratory failure- Require intubation and Mechanical Ventilation- Anemia- Elevated troponin / ME HTN DM HIV Antibody + Plan on feeding stop IV fluid IV protonix NGt suction transfusiosn start IV fluid BP med adjustment ? recheck 2D echo?? UA and urine studies Avoid Nephrotoxics as possible Monitor renal parameters keep BP and BS in check Per orders No HD at this time Kidney RADHA noted adjust BP meds add Isordil Subjective ROS Limited/Unobtainable: Yes Objective Objective Last 24 Hour Vital Signs Date Time Temp Pulse Resp B/P (MAP) Pulse Ox O2 Delivery O2 Flow Rate FiO2 02/24/19 15:00 24 Mechanical Ventilator 40 02/24/19 15:00 75 24 120/63 (82) 98 02/24/19 14:54 71 24 100 Mechanical Ventilator 40 02/24/19 14:52 72 26 40 02/24/19 14:50 72 24 100 Mechanical Ventilator 40 02/24/19 14:30 71 24 140/75 (96) 99 02/24/19 14:22 134/70 02/24/19 14:15 24 Mechanical Ventilator 40 02/24/19 14:00 24 Mechanical Ventilator 40 02/24/19 14:00 72 24 134/70 (91) 100 02/24/19 13:30 74 24 129/71 (90) 98 02/24/19 13:00 24 Mechanical Ventilator 40 02/24/19 13:00 68 24 130/71 (90) 97 02/24/19 12:40 118/58 02/24/19 12:35 69 26 40 02/24/19 12:30 65 24 118/58 (78) 98 02/24/19 12:00 98.1 64 24 121/68 (85) 98 02/24/19 12:00 24 Mechanical Ventilator 40 02/24/19 12:00 118/58 02/24/19 12:00 40 02/24/19 12:00 Mechanical Ventilator Mechanical Ventilator 02/24/19 12:00 67 02/24/19 11:30 67 24 121/64 (83) 97 02/24/19 11:00 75 24 131/68 (89) 99 02/24/19 11:00 24 Mechanical Ventilator 40 02/24/19 10:44 72 24 100 Mechanical Ventilator 40 02/24/19 10:42 72 26 40 02/24/19 10:36 73 24 100 Mechanical Ventilator 40 02/24/19 10:30 71 24 125/61 (82) 100 02/24/19 10:00 71 24 136/72 (93) 98 02/24/19 10:00 24 Mechanical Ventilator 40 02/24/19 09:30 80 24 136/65 (88) 98 02/24/19 09:25 81 145/72 02/24/19 09:25 80 145/72 02/24/19 09:00 24 Mechanical Ventilator 40 02/24/19 09:00 81 24 145/72 (96) 98 02/24/19 08:36 77 24 40 02/24/19 08:30 82 24 153/66 (95) 98 02/24/19 08:00 82 02/24/19 08:00 24 Mechanical Ventilator 40 02/24/19 08:00 40 02/24/19 08:00 Mechanical Ventilator Mechanical Ventilator 02/24/19 08:00 98.7 75 24 140/73 (95) 96 02/24/19 07:30 72 24 122/74 (90) 96 02/24/19 07:01 78 24 99 Mechanical Ventilator 40 02/24/19 07:00 72 24 132/65 (87) 96 02/24/19 07:00 20 Mechanical Ventilator 40 02/24/19 06:58 73 24 40 02/24/19 06:55 79 24 99 Mechanical Ventilator 40 02/24/19 06:30 74 17 139/77 (97) 100 02/24/19 06:00 70 22 128/75 (92) 99 02/24/19 06:00 22 Mechanical Ventilator 40 02/24/19 05:46 148/84 02/24/19 05:45 148/84 02/24/19 05:45 148/84 02/24/19 05:30 72 24 40 02/24/19 05:30 74 19 150/79 (102) 99 02/24/19 05:00 79 17 149/52 (84) 97 02/24/19 05:00 17 Mechanical Ventilator 40 02/24/19 04:30 74 19 140/73 (95) 98 02/24/19 04:12 24 Mechanical Ventilator 40 02/24/19 04:00 Mechanical Ventilator Mechanical Ventilator 02/24/19 04:00 98.3 74 24 136/74 (94) 98 02/24/19 04:00 40 02/24/19 03:30 71 22 129/65 (86) 99 02/24/19 03:05 65 24 100 Mechanical Ventilator 40 02/24/19 03:01 64 02/24/19 03:00 22 Mechanical Ventilator 40 02/24/19 03:00 64 22 110/57 (74) 100 02/24/19 02:55 63 24 100 Mechanical Ventilator 40 02/24/19 02:55 63 24 40 02/24/19 02:30 63 23 108/67 (81) 98 02/24/19 02:00 24 Non-Rebreather 40 02/24/19 02:00 64 24 110/60 (77) 98 02/24/19 01:30 72 24 127/67 (87) 98 02/24/19 01:17 75 24 40 02/24/19 01:00 64 24 106/62 (77) 97 02/24/19 01:00 24 Mechanical Ventilator 40 02/24/19 00:30 69 21 105/60 (75) 97 02/24/19 00:00 97.4 77 24 120/57 (78) 98 02/24/19 00:00 Mechanical Ventilator Mechanical Ventilator 02/24/19 00:00 24 Mechanical Ventilator 40 02/23/19 23:40 123/70 02/23/19 23:40 123/70 02/23/19 23:30 71 24 123/70 (87) 97 02/23/19 23:10 75 24 99 Mechanical Ventilator 40 02/23/19 23:02 69 02/23/19 23:00 64 24 99 Mechanical Ventilator 40 02/23/19 23:00 69 24 152/70 (97) 100 02/23/19 23:00 64 24 40 02/23/19 23:00 24 Mechanical Ventilator 40 02/23/19 22:30 64 21 106/85 (92) 98 02/23/19 22:00 63 24 110/59 (76) 98 02/23/19 22:00 24 Mechanical Ventilator 40 02/23/19 21:39 110/61 02/23/19 21:30 64 22 110/63 (79) 99 02/23/19 21:09 66 24 40 02/23/19 21:00 67 24 106/58 (74) 99 02/23/19 20:35 69 111/54 02/23/19 20:30 70 24 111/54 (73) 99 02/23/19 20:08 21 Mechanical Ventilator 40 02/23/19 20:00 24 Mechanical Ventilator 40 02/23/19 20:00 40 02/23/19 20:00 98.7 77 24 121/61 (81) 99 02/23/19 20:00 Mechanical Ventilator Mechanical Ventilator 02/23/19 19:48 89 02/23/19 19:35 71 24 100 Mechanical Ventilator 40 02/23/19 19:30 75 21 132/67 (88) 98 02/23/19 19:25 75 25 100 Mechanical Ventilator 40 02/23/19 19:23 75 25 40 02/23/19 19:00 24 Mechanical Ventilator 40 02/23/19 19:00 74 24 130/64 (86) 99 02/23/19 18:45 74 24 124/73 (90) 98 02/23/19 18:00 76 24 150/78 (102) 97 02/23/19 18:00 24 Mechanical Ventilator 40 02/23/19 17:45 79 24 150/78 (102) 97 02/23/19 17:32 144/68 02/23/19 17:31 144/68 02/23/19 17:30 75 24 132/67 (88) 97 02/23/19 17:15 73 24 144/68 (93) 97 02/23/19 17:00 80 24 152/88 (109) 97 02/23/19 17:00 24 Mechanical Ventilator 40 02/23/19 17:00 68 24 40 02/23/19 16:51 24 Mechanical Ventilator 40 02/23/19 16:50 24 Mechanical Ventilator 40 02/23/19 16:00 40 02/23/19 16:00 98.1 70 24 122/61 (81) 99 02/23/19 16:00 Mechanical Ventilator Mechanical Ventilator 02/23/19 16:00 24 Mechanical Ventilator 40 02/23/19 16:00 70 Intake and Output 02/23/19 02/24/19 18:59 06:59 Intake Total 808.0 ml 2231.5 ml Output Total 1175 ml 880 ml Balance -367.0 ml 1351.5 ml IV Total 808.0 ml 2021.5 ml Other 210 ml Output Urine Total 1175 ml 860 ml Gastric Drainage Total 20 ml # Bowel Movements 50 Laboratory Tests 02/24/19 04:45: White Blood Count 6.4, Red Blood Count 3.14L, Hemoglobin 9.0L, Hematocrit 27.9L , Mean Corpuscular Volume 89, Mean Corpuscular Hemoglobin 28.8, Mean Corpuscular Hemoglobin Concent 32.4, Red Cell Distribution Width 17.1H, Platelet Count 202, Mean Platelet Volume 6.1L, Neutrophils (%) (Auto) , Lymphocytes (%) (Auto) , Monocytes (%) (Auto) , Eosinophils (%) (Auto) , Basophils (%) (Auto) , Differential Total Cells Counted 100, Neutrophils % ( Manual) 84H, Lymphocytes % (Manual) 9L, Monocytes % (Manual) 7, Eosinophils % ( Manual) 0, Basophils % (Manual) 0, Band Neutrophils 0, Platelet Estimate Adequate, Platelet Morphology Normal, Anisocytosis 1+, Prothrombin Time 11.7H, Prothromb Time International Ratio 1.1, Activated Partial Thromboplast Time 31, Sodium Level 135L, Potassium Level 5.0, Chloride Level 101, Carbon Dioxide Level 24, Anion Gap 10, Blood Urea Nitrogen 59H, Creatinine 2.6H, Estimat Glomerular Filtration Rate 25.4, Glucose Level 122H, Calcium Level 8.1L, Phosphorus Level 5.0H, Magnesium Level 2.1, Total Bilirubin 0.5, Aspartate Amino Transf (AST/SGOT) 58H, Alanine Aminotransferase (ALT/SGPT) 59, Alkaline Phosphatase 105, Total Protein 5.9L, Albumin 2.4L, Globulin 3.5, Albumin/ Globulin Ratio 0.7L Height (Feet): 6 Height (Inches): 0.00 Weight (Pounds): 274 General Appearance: no apparent distress EENT: other - vented Cardiovascular: normal rate Respiratory/Chest: decreased breath sounds Abdomen: distended Mike Mcdonald MD Feb 24, 2019 15:54
--- NOTE | 2019-02-24 16:15 | NUR ---
NURSE NOTES: Dr. Costa at the bedside and updated on condition, would like to hold on trach placement since patient is more mobile that last week, would prefer to have patient be weaned and attempt to extubated patient.
--- NOTE | 2019-02-24 16:32 | Surgery Progress Note ---
Surgery Progress Note Subjective Procedure Performed left femoral temporary Hemodialysis catheter insertion Additional Comments more awake today. exam stable. labs noted on vent support Objective Last 24 Hour Vital Signs Date Time Temp Pulse Resp B/P (MAP) Pulse Ox O2 Delivery O2 Flow Rate FiO2 02/24/19 16:00 40 02/24/19 16:00 75 02/24/19 16:00 70 24 126/57 (80) 98 02/24/19 16:00 Mechanical Ventilator Mechanical Ventilator 02/24/19 15:00 24 Mechanical Ventilator 40 02/24/19 15:00 75 24 120/63 (82) 98 02/24/19 14:54 71 24 100 Mechanical Ventilator 40 02/24/19 14:52 72 26 40 02/24/19 14:50 72 24 100 Mechanical Ventilator 40 02/24/19 14:30 71 24 140/75 (96) 99 02/24/19 14:22 134/70 02/24/19 14:15 24 Mechanical Ventilator 40 02/24/19 14:00 24 Mechanical Ventilator 40 02/24/19 14:00 72 24 134/70 (91) 100 02/24/19 13:30 74 24 129/71 (90) 98 02/24/19 13:00 24 Mechanical Ventilator 40 02/24/19 13:00 68 24 130/71 (90) 97 02/24/19 12:40 118/58 02/24/19 12:35 69 26 40 02/24/19 12:30 65 24 118/58 (78) 98 02/24/19 12:00 98.1 64 24 121/68 (85) 98 02/24/19 12:00 24 Mechanical Ventilator 40 02/24/19 12:00 118/58 02/24/19 12:00 40 02/24/19 12:00 Mechanical Ventilator Mechanical Ventilator 02/24/19 12:00 67 02/24/19 11:30 67 24 121/64 (83) 97 02/24/19 11:00 75 24 131/68 (89) 99 02/24/19 11:00 24 Mechanical Ventilator 40 02/24/19 10:44 72 24 100 Mechanical Ventilator 40 02/24/19 10:42 72 26 40 02/24/19 10:36 73 24 100 Mechanical Ventilator 40 02/24/19 10:30 71 24 125/61 (82) 100 7/6/19 10:00 71 24 136/72 (93) 98 02/24/19 10:00 24 Mechanical Ventilator 40 02/24/19 09:30 80 24 136/65 (88) 98 02/24/19 09:25 81 145/72 02/24/19 09:25 80 145/72 02/24/19 09:00 24 Mechanical Ventilator 40 02/24/19 09:00 81 24 145/72 (96) 98 02/24/19 08:36 77 24 40 02/24/19 08:30 82 24 153/66 (95) 98 02/24/19 08:00 82 02/24/19 08:00 24 Mechanical Ventilator 40 02/24/19 08:00 40 02/24/19 08:00 Mechanical Ventilator Mechanical Ventilator 02/24/19 08:00 98.7 75 24 140/73 (95) 96 02/24/19 07:30 72 24 122/74 (90) 96 02/24/19 07:01 78 24 99 Mechanical Ventilator 40 02/24/19 07:00 72 24 132/65 (87) 96 02/24/19 07:00 20 Mechanical Ventilator 40 02/24/19 06:58 73 24 40 02/24/19 06:55 79 24 99 Mechanical Ventilator 40 02/24/19 06:30 74 17 139/77 (97) 100 02/24/19 06:00 70 22 128/75 (92) 99 02/24/19 06:00 22 Mechanical Ventilator 40 02/24/19 05:46 148/84 02/24/19 05:45 148/84 02/24/19 05:45 148/84 02/24/19 05:30 72 24 40 02/24/19 05:30 74 19 150/79 (102) 99 02/24/19 05:00 79 17 149/52 (84) 97 02/24/19 05:00 17 Mechanical Ventilator 40 02/24/19 04:30 74 19 140/73 (95) 98 02/24/19 04:12 24 Mechanical Ventilator 40 02/24/19 04:00 Mechanical Ventilator Mechanical Ventilator 02/24/19 04:00 98.3 74 24 136/74 (94) 98 02/24/19 04:00 40 02/24/19 03:30 71 22 129/65 (86) 99 02/24/19 03:05 65 24 100 Mechanical Ventilator 40 02/24/19 03:01 64 02/24/19 03:00 22 Mechanical Ventilator 40 02/24/19 03:00 64 22 110/57 (74) 100 02/24/19 02:55 63 24 100 Mechanical Ventilator 40 02/24/19 02:55 63 24 40 02/24/19 02:30 63 23 108/67 (81) 98 02/24/19 02:00 24 Non-Rebreather 40 02/24/19 02:00 64 24 110/60 (77) 98 02/24/19 01:30 72 24 127/67 (87) 98 02/24/19 01:17 75 24 40 02/24/19 01:00 64 24 106/62 (77) 97 02/24/19 01:00 24 Mechanical Ventilator 40 02/24/19 00:30 69 21 105/60 (75) 97 02/24/19 00:00 97.4 77 24 120/57 (78) 98 02/24/19 00:00 Mechanical Ventilator Mechanical Ventilator 02/24/19 00:00 24 Mechanical Ventilator 40 02/23/19 23:40 123/70 02/23/19 23:40 123/70 02/23/19 23:30 71 24 123/70 (87) 97 02/23/19 23:10 75 24 99 Mechanical Ventilator 40 02/23/19 23:02 69 02/23/19 23:00 64 24 99 Mechanical Ventilator 40 02/23/19 23:00 69 24 152/70 (97) 100 02/23/19 23:00 64 24 40 02/23/19 23:00 24 Mechanical Ventilator 40 02/23/19 22:30 64 21 106/85 (92) 98 02/23/19 22:00 63 24 110/59 (76) 98 02/23/19 22:00 24 Mechanical Ventilator 40 02/23/19 21:39 110/61 02/23/19 21:30 64 22 110/63 (79) 99 02/23/19 21:09 66 24 40 02/23/19 21:00 67 24 106/58 (74) 99 02/23/19 20:35 69 111/54 02/23/19 20:30 70 24 111/54 (73) 99 02/23/19 20:08 21 Mechanical Ventilator 40 02/23/19 20:00 24 Mechanical Ventilator 40 02/23/19 20:00 40 02/23/19 20:00 98.7 77 24 121/61 (81) 99 02/23/19 20:00 Mechanical Ventilator Mechanical Ventilator 02/23/19 19:48 89 02/23/19 19:35 71 24 100 Mechanical Ventilator 40 02/23/19 19:30 75 21 132/67 (88) 98 02/23/19 19:25 75 25 100 Mechanical Ventilator 40 02/23/19 19:23 75 25 40 02/23/19 19:00 24 Mechanical Ventilator 40 02/23/19 19:00 74 24 130/64 (86) 99 02/23/19 18:45 74 24 124/73 (90) 98 02/23/19 18:00 76 24 150/78 (102) 97 02/23/19 18:00 24 Mechanical Ventilator 40 02/23/19 17:45 79 24 150/78 (102) 97 02/23/19 17:32 144/68 02/23/19 17:31 144/68 02/23/19 17:30 75 24 132/67 (88) 97 02/23/19 17:15 73 24 144/68 (93) 97 02/23/19 17:00 80 24 152/88 (109) 97 02/23/19 17:00 24 Mechanical Ventilator 40 02/23/19 17:00 68 24 40 02/23/19 16:51 24 Mechanical Ventilator 40 02/23/19 16:50 24 Mechanical Ventilator 40 I&O Intake and Output 02/23/19 02/24/19 18:59 06:59 Intake Total 808.0 ml 2231.5 ml Output Total 1175 ml 880 ml Balance -367.0 ml 1351.5 ml IV Total 808.0 ml 2021.5 ml Other 210 ml Output Urine Total 1175 ml 860 ml Gastric Drainage Total 20 ml # Bowel Movements 50 Dressing: saturated Wound: clean Cardiovascular: RSR Respiratory: clear Abdomen: soft, distended, non-tender, present bowel sounds Extremities: edema, no cyanosis Laboratory Tests Test 02/24/19 04:45 White Blood Count 6.4 K/UL (4.8-10.8) Red Blood Count 3.14 M/UL (4.70-6.10) L Hemoglobin 9.0 G/DL (14.2-18.0) L Hematocrit 27.9 % (42.0-52.0) L Mean Corpuscular Volume 89 FL (80-99) Mean Corpuscular Hemoglobin 28.8 PG (27.0-31.0) Mean Corpuscular Hemoglobin Concent 32.4 G/DL (32.0-36.0) Red Cell Distribution Width 17.1 % (11.6-14.8) H Platelet Count 202 K/UL (150-450) Mean Platelet Volume 6.1 FL (6.5-10.1) L Neutrophils (%) (Auto) % (45.0-75.0) Lymphocytes (%) (Auto) % (20.0-45.0) Monocytes (%) (Auto) % (1.0-10.0) Eosinophils (%) (Auto) % (0.0-3.0) Basophils (%) (Auto) % (0.0-2.0) Differential Total Cells Counted 100 Neutrophils % (Manual) 84 % (45-75) H Lymphocytes % (Manual) 9 % (20-45) L Monocytes % (Manual) 7 % (1-10) Eosinophils % (Manual) 0 % (0-3) Basophils % (Manual) 0 % (0-2) Band Neutrophils 0 % (0-8) Platelet Estimate Adequate Platelet Morphology Normal Anisocytosis 1+ Prothrombin Time 11.7 SEC (9.30-11.50) H Prothromb Time International Ratio 1.1 (0.9-1.1) Activated Partial Thromboplast Time 31 SEC (23-33) Sodium Level 135 MMOL/L (136-145) L Potassium Level 5.0 MMOL/L (3.5-5.1) Chloride Level 101 MMOL/L (98-107) Carbon Dioxide Level 24 MMOL/L (21-32) Anion Gap 10 mmol/L (5-15) Blood Urea Nitrogen 59 mg/dL (7-18) H Creatinine 2.6 MG/DL (0.55-1.30) H Estimat Glomerular Filtration Rate 25.4 mL/min (>60) Glucose Level 122 MG/DL (74-106) H Calcium Level 8.1 MG/DL (8.5-10.1) L Phosphorus Level 5.0 MG/DL (2.5-4.9) H Magnesium Level 2.1 MG/DL (1.8-2.4) Total Bilirubin 0.5 MG/DL (0.2-1.0) Aspartate Amino Transf (AST/SGOT) 58 U/L (15-37) H Alanine Aminotransferase (ALT/SGPT) 59 U/L (12-78) Alkaline Phosphatase 105 U/L (46-116) Total Protein 5.9 G/DL (6.4-8.2) L Albumin 2.4 G/DL (3.4-5.0) L Globulin 3.5 g/dL Albumin/Globulin Ratio 0.7 (1.0-2.7) L Plan Problems: (1) Hypoxia Assessment & Plan: Extensive bilateral upper lobe infiltrates likely inflammatory/infectious. Correlate clinically. Tuberculosis is not excludable. Bilateral pleural effusions. Endotracheal tube and nasogastric tube in good position Atherosclerotic vascular disease (2) Respiratory distress Assessment & Plan: intubated on vent support may require trach given failed initial extubation and now difficult to wean (3) Sepsis Assessment & Plan: Sepsis with tachycardia, leukocytosis - resolved, abnormal labs, respiratory distress on vent support via ET tube Cont IV abx CXR noted appreciate ICU team care abnormal lft's US noted will likely remove line soon now that improving will cont to follow with recs trend labs Rx as written Moiz Costa Feb 24, 2019 16:32
--- NOTE | 2019-02-24 17:30 | NUR ---
NURSE NOTES: Dr. Pang at the bedside and updated of patient WBC of 6.4 and remains afebrile, also made aware of Zosyn medication to on 02/25/19 at 1359, will place orders once reviews chart.
--- NOTE | 2019-02-24 17:32 | Infectious Diseases Prog Note ---
Assessment/Plan Assessment/Plan A) 1) pneumonia - ? new aspiration/hcap, ? CAP, ? pcp, ? fungal (cryptococcus/ cocci), sepsis, leukocytosis, ? line infection, ARDS, chf/edema 2) intubated on vent, s/p bronchoscopy, ARF, ? 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, on anti-retroviral treatment 4) rule out TB pna, in isolation - afb smear on bronchoscopy is negative, TB spot negative 5) pmh noted - hypertension, ckd, anemia, dm, cva, tia, migraines 6) allergies - nkda, sh-negative, fh-nc, mar noted 7) d/w RN P) 1) zosyn, iv bactrim (12/12/18), diflucan 2) leukocytosis better, monitor labs and chest x-ray, no fevers, no pressors 3) diarrhea may be secondary to colace and leukocytosis secondary to steroids 4) weaning per pulmonary medicine 5) critical condition, icu supportive care, vent support 6) skin care per protocol Subjective Constitutional: Reports: other - on vent, more alert, no pressors ; Denies: fever HEENT: Reports: congestion Respiratory: Reports: shortness of breath Cardiovascular: Reports: other - no pressors Gastrointestinal/Abdominal: Denies: nausea, vomiting, diarrhea Genitourinary: Reports: other - + smith Neurologic: Reports: other - more alert Psychiatric: Denies: depression Skin: Denies: rash Hematologic: Denies: bleeding Musculoskeletal: Denies: pain Allergies: Coded Allergies: No Known Allergies (Unverified , 02/05/13) Objective Vital Signs Last 24 Hour Vital Signs Date Time Temp Pulse Resp B/P (MAP) Pulse Ox O2 Delivery O2 Flow Rate FiO2 02/24/19 16:00 40 02/24/19 16:00 75 02/24/19 16:00 70 24 126/57 (80) 98 02/24/19 16:00 24 Mechanical Ventilator 40 02/24/19 16:00 Mechanical Ventilator Mechanical Ventilator 02/24/19 15:00 24 Mechanical Ventilator 40 02/24/19 15:00 75 24 120/63 (82) 98 02/24/19 14:54 71 24 100 Mechanical Ventilator 40 02/24/19 14:52 72 26 40 02/24/19 14:50 72 24 100 Mechanical Ventilator 40 02/24/19 14:30 71 24 140/75 (96) 99 02/24/19 14:22 134/70 02/24/19 14:15 24 Mechanical Ventilator 40 02/24/19 14:00 24 Mechanical Ventilator 40 02/24/19 14:00 72 24 134/70 (91) 100 02/24/19 13:30 74 24 129/71 (90) 98 02/24/19 13:00 24 Mechanical Ventilator 40 02/24/19 13:00 68 24 130/71 (90) 97 02/24/19 12:40 118/58 02/24/19 12:35 69 26 40 02/24/19 12:30 65 24 118/58 (78) 98 02/24/19 12:00 98.1 64 24 121/68 (85) 98 02/24/19 12:00 24 Mechanical Ventilator 40 02/24/19 12:00 118/58 02/24/19 12:00 40 02/24/19 12:00 Mechanical Ventilator Mechanical Ventilator 02/24/19 12:00 67 02/24/19 11:30 67 24 121/64 (83) 97 02/24/19 11:00 75 24 131/68 (89) 99 02/24/19 11:00 24 Mechanical Ventilator 40 02/24/19 10:44 72 24 100 Mechanical Ventilator 40 02/24/19 10:42 72 26 40 02/24/19 10:36 73 24 100 Mechanical Ventilator 40 02/24/19 10:30 71 24 125/61 (82) 100 02/24/19 10:00 71 24 136/72 (93) 98 02/24/19 10:00 24 Mechanical Ventilator 40 02/24/19 09:30 80 24 136/65 (88) 98 02/24/19 09:25 81 145/72 02/24/19 09:25 80 145/72 02/24/19 09:00 24 Mechanical Ventilator 40 02/24/19 09:00 81 24 145/72 (96) 98 02/24/19 08:36 77 24 40 02/24/19 08:30 82 24 153/66 (95) 98 02/24/19 08:00 82 02/24/19 08:00 24 Mechanical Ventilator 40 02/24/19 08:00 40 02/24/19 08:00 Mechanical Ventilator Mechanical Ventilator 02/24/19 08:00 98.7 75 24 140/73 (95) 96 02/24/19 07:30 72 24 122/74 (90) 96 02/24/19 07:01 78 24 99 Mechanical Ventilator 40 02/24/19 07:00 72 24 132/65 (87) 96 02/24/19 07:00 20 Mechanical Ventilator 40 02/24/19 06:58 73 24 40 02/24/19 06:55 79 24 99 Mechanical Ventilator 40 02/24/19 06:30 74 17 139/77 (97) 100 02/24/19 06:00 70 22 128/75 (92) 99 02/24/19 06:00 22 Mechanical Ventilator 40 02/24/19 05:46 148/84 02/24/19 05:45 148/84 02/24/19 05:45 148/84 02/24/19 05:30 72 24 40 02/24/19 05:30 74 19 150/79 (102) 99 02/24/19 05:00 79 17 149/52 (84) 97 02/24/19 05:00 17 Mechanical Ventilator 40 02/24/19 04:30 74 19 140/73 (95) 98 02/24/19 04:12 24 Mechanical Ventilator 40 02/24/19 04:00 Mechanical Ventilator Mechanical Ventilator 02/24/19 04:00 98.3 74 24 136/74 (94) 98 02/24/19 04:00 40 02/24/19 03:30 71 22 129/65 (86) 99 02/24/19 03:05 65 24 100 Mechanical Ventilator 40 02/24/19 03:01 64 02/24/19 03:00 22 Mechanical Ventilator 40 02/24/19 03:00 64 22 110/57 (74) 100 02/24/19 02:55 63 24 100 Mechanical Ventilator 40 02/24/19 02:55 63 24 40 02/24/19 02:30 63 23 108/67 (81) 98 02/24/19 02:00 24 Non-Rebreather 40 02/24/19 02:00 64 24 110/60 (77) 98 02/24/19 01:30 72 24 127/67 (87) 98 02/24/19 01:17 75 24 40 02/24/19 01:00 64 24 106/62 (77) 97 02/24/19 01:00 24 Mechanical Ventilator 40 02/24/19 00:30 69 21 105/60 (75) 97 02/24/19 00:00 97.4 77 24 120/57 (78) 98 02/24/19 00:00 Mechanical Ventilator Mechanical Ventilator 02/24/19 00:00 24 Mechanical Ventilator 40 02/23/19 23:40 123/70 02/23/19 23:40 123/70 02/23/19 23:30 71 24 123/70 (87) 97 02/23/19 23:10 75 24 99 Mechanical Ventilator 40 02/23/19 23:02 69 02/23/19 23:00 64 24 99 Mechanical Ventilator 40 02/23/19 23:00 69 24 152/70 (97) 100 02/23/19 23:00 64 24 40 02/23/19 23:00 24 Mechanical Ventilator 40 02/23/19 22:30 64 21 106/85 (92) 98 02/23/19 22:00 63 24 110/59 (76) 98 02/23/19 22:00 24 Mechanical Ventilator 40 02/23/19 21:39 110/61 02/23/19 21:30 64 22 110/63 (79) 99 02/23/19 21:09 66 24 40 02/23/19 21:00 67 24 106/58 (74) 99 02/23/19 20:35 69 111/54 02/23/19 20:30 70 24 111/54 (73) 99 02/23/19 20:08 21 Mechanical Ventilator 40 02/23/19 20:00 24 Mechanical Ventilator 40 02/23/19 20:00 40 02/23/19 20:00 98.7 77 24 121/61 (81) 99 02/23/19 20:00 Mechanical Ventilator Mechanical Ventilator 02/23/19 19:48 89 02/23/19 19:35 71 24 100 Mechanical Ventilator 40 02/23/19 19:30 75 21 132/67 (88) 98 02/23/19 19:25 75 25 100 Mechanical Ventilator 40 02/23/19 19:23 75 25 40 02/23/19 19:00 24 Mechanical Ventilator 40 02/23/19 19:00 74 24 130/64 (86) 99 02/23/19 18:45 74 24 124/73 (90) 98 02/23/19 18:00 76 24 150/78 (102) 97 02/23/19 18:00 24 Mechanical Ventilator 40 02/23/19 17:45 79 24 150/78 (102) 97 02/23/19 17:32 144/68 02/23/19 17:31 144/68 02/23/19 17:30 75 24 132/67 (88) 97 Height (Feet): 6 Height (Inches): 0.00 Weight (Pounds): 274 General Appearance: other - on vent, no pressor s HEENT: normocephalic, atraumatic, anicteric, no JVD, other - oral - intubated Respiratory/Chest: crackles/rales, rhonchi - bilaterally Cardiovascular: normal rate, regular rhythm, no gallop/murmur, no JVD Abdomen: normal bowel sounds, soft, non tender, no organomegaly, non distended Genitourinary: other - + smith - urine clear Extremities: no cyanosis Skin: no rash Neurologic/Psychiatric: other - more alert, on vent, weak Lymphatic: no neck adenopathy Musculoskeletal: no effusion Objective Chest x-ray - 02/10/19 - COMPARISON: Chest radiograph on 02/09/2019 FINDINGS: Hardware: Endotracheal tube terminates in the region of the mid thoracic trachea. Enteric tube courses past the diaphragm and out of the field of view. Lungs/pleura: Slightly decreased but persistent patchy consolidations in the right lung. Slightly decreased left perihilar opacities/consolidations. Possible small bilateral pleural effusions. Heart/mediastinum: Stable mild enlargement of the cardiomediastinal silhouette. Soft tissues: Unremarkable. Bones: No acute fracture. Degenerative changes of the visualized right acromioclavicular joint. Degenerative changes of the spine. Upper abdomen: Normal. 02/11/19 - chest x-ray - IMPRESSION: Slightly decreased but persistent patchy consolidations in the right lung. Slightly decreased left perihilar opacities. Findings may IMPRESSION: 1. No significant change in the interstitial and alveolar opacities in bilateral lungs. 2. Possible small bilateral pleural effusions, unchanged. represent infectious/inflammatory process and/or pulmonary edema. Possible small bilateral pleural effusions. 02/16/19 - chest x-ray - Impression: Worsening of aeration with increasing interstitial and bilateral predominantly perihilar airspace disease. Findings likely related to worsening CHF/pulmonary edema. Superimposed pneumonia to be excluded clinically. Follow-up recommended. Chest x-ray - 02/18/19 - COMPARISON: Chest radiograph on 02/16/2019 FINDINGS: Hardware: Endotracheal tube terminates in the region of the mid thoracic trachea. Enteric tube courses past the diaphragm and out of the field of view. Lungs/pleura: Slightly decreased but persistent hazy and interstitial opacities. Persistent small left pleural effusion. Heart/mediastinum: Stable mild enlargement of the cardiomediastinal silhouette. Soft tissues: Unremarkable. Bones: No acute fracture. Upper abdomen: Normal. IMPRESSION: Slightly decreased but persistent changes suggesting pulmonary edema. Component of infectious/inflammatory process is not excluded. Persistent small left pleural effusion. Chest x-ray - 02/20/19 - Procedure: XRAY Chest 1v Indication: Dyspnea Comparison: Earlier same day A single view chest radiograph was obtained. Findings: Intubation noted. The endotracheal tube is in good position about 3 cm above the christal. Cardiomegaly again noted. Moderate pulmonary vascular congestion demonstrated. IMPRESSION: Endotracheal tube in good position. CHF Chest x-ray - - FINDINGS: The tip of the endotracheal tube is appropriately positioned, projecting between the clavicular heads. The sidehole of the enteric tube projects within the stomach. Extensive bilateral consolidation is again noted. Favor multilobar pneumonia. Heart size is borderline, but likely exaggerated by portable technique. No pneumothorax. Bony degenerative changes. IMPRESSION: Extensive airspace consolidation, similar to prior. Favor multilobar pneumonia. Appropriately positioned tubes. Chest x-ray - 02/24/19 - IMPRESSION: No significant interval change compared to the prior chest x-ray. Cardiomegaly with diffuse interstitial and alveolar opacities, which may represent pulmonary edema versus pneumonia. Microbiology Date/Time Source Procedure Growth Status 02/20/19 19:00 Blood Blood Culture - Preliminary NO GROWTH AFTER 72 HOURS Resulted 02/20/19 18:45 Sputum Gram Stain - Final Complete 02/20/19 18:45 Sputum Sputum Culture - Final NO GROWTH AFTER 48 HOURS Complete 02/20/19 18:45 Indwelling Cath Urine Culture - Final NO GROWTH AFTER 48 HOURS Complete 02/06/19 17:10 Rectal Mucosa - Final NO CARBAPENEM-RESISTANT ENTEROBACTERI... Complete Laboratory Tests Test 02/24/19 04:45 White Blood Count 6.4 K/UL (4.8-10.8) Red Blood Count 3.14 M/UL (4.70-6.10) L Hemoglobin 9.0 G/DL (14.2-18.0) L Hematocrit 27.9 % (42.0-52.0) L Mean Corpuscular Volume 89 FL (80-99) Mean Corpuscular Hemoglobin 28.8 PG (27.0-31.0) Mean Corpuscular Hemoglobin Concent 32.4 G/DL (32.0-36.0) Red Cell Distribution Width 17.1 % (11.6-14.8) H Platelet Count 202 K/UL (150-450) Mean Platelet Volume 6.1 FL (6.5-10.1) L Neutrophils (%) (Auto) % (45.0-75.0) Lymphocytes (%) (Auto) % (20.0-45.0) Monocytes (%) (Auto) % (1.0-10.0) Eosinophils (%) (Auto) % (0.0-3.0) Basophils (%) (Auto) % (0.0-2.0) Differential Total Cells Counted 100 Neutrophils % (Manual) 84 % (45-75) H Lymphocytes % (Manual) 9 % (20-45) L Monocytes % (Manual) 7 % (1-10) Eosinophils % (Manual) 0 % (0-3) Basophils % (Manual) 0 % (0-2) Band Neutrophils 0 % (0-8) Platelet Estimate Adequate Platelet Morphology Normal Anisocytosis 1+ Prothrombin Time 11.7 SEC (9.30-11.50) H Prothromb Time International Ratio 1.1 (0.9-1.1) Activated Partial Thromboplast Time 31 SEC (23-33) Sodium Level 135 MMOL/L (136-145) L Potassium Level 5.0 MMOL/L (3.5-5.1) Chloride Level 101 MMOL/L (98-107) Carbon Dioxide Level 24 MMOL/L (21-32) Anion Gap 10 mmol/L (5-15) Blood Urea Nitrogen 59 mg/dL (7-18) H Creatinine 2.6 MG/DL (0.55-1.30) H Estimat Glomerular Filtration Rate 25.4 mL/min (>60) Glucose Level 122 MG/DL (74-106) H Calcium Level 8.1 MG/DL (8.5-10.1) L Phosphorus Level 5.0 MG/DL (2.5-4.9) H Magnesium Level 2.1 MG/DL (1.8-2.4) Total Bilirubin 0.5 MG/DL (0.2-1.0) Aspartate Amino Transf (AST/SGOT) 58 U/L (15-37) H Alanine Aminotransferase (ALT/SGPT) 59 U/L (12-78) Alkaline Phosphatase 105 U/L (46-116) Total Protein 5.9 G/DL (6.4-8.2) L Albumin 2.4 G/DL (3.4-5.0) L Globulin 3.5 g/dL Albumin/Globulin Ratio 0.7 (1.0-2.7) L Current Medications Medications (Trade) Dose Ordered Sig/Marquis Route PRN Reason Start Time Stop Time Status Last Admin Dose Admin Acetaminophen (Tylenol) 650 mg Q4H PRN ORAL Mild Pain (Pain Scale 1-3) 02/07/19 11:15 03/08/19 17:29 02/22/19 14:37 Acetaminophen/ Butalbital/ Caffeine (Fioricet) 1 tab Q8H PRN ORAL For Headache 02/08/19 17:15 03/10/19 17:14 Albuterol/ Ipratropium (Albuterol/ Ipratropium) 3 ml Q4HRT HHN 02/20/19 03:00 02/25/19 02:59 02/24/19 14:53 Amlodipine Besylate (Norvasc) 10 mg DAILY NG 02/15/19 09:00 03/14/19 15:59 02/24/19 09:25 Artificial Tears (Lacri-Lube) 1 applic AC+HS BOTH EYES 02/18/19 06:30 03/20/19 06:29 02/24/19 10:21 Bisacodyl (Dulcolax) 5 mg DAILYPRN PRN ORAL Constipation 02/08/19 17:15 03/10/19 17:14 02/18/19 20:13 Chlorhexidine Gluconate (Jessy-Hex 2%) 1 applic DAILY@2000 TOPIC 02/13/19 20:00 03/15/19 19:59 02/23/19 19:40 Clonidine HCl (Catapres Tab) 0.1 mg EVERY 6 HOURS NG 02/20/19 12:00 03/19/19 13:59 02/24/19 05:45 Dextrose (Dextrose 50%) 25 ml Q30M PRN IV Hypoglycemia 02/20/19 06:45 03/22/19 06:44 Dextrose (Dextrose 50%) 50 ml Q30M PRN IV Hypoglycemia 02/20/19 06:45 03/22/19 06:44 02/20/19 08:49 Docusate Sodium (Colace) 100 mg TID GT 02/12/19 18:00 03/12/19 08:59 02/24/19 12:41 Fentanyl Citrate 2500 mcg/Sodium Chloride 250 ml @ 0 mls/hr Q24H IV 02/23/19 20:30 03/02/19 20:29 02/24/19 14:15 Fluconazole/ Sodium Chloride 100 ml @ 100 mls/hr Q24H IV 02/20/19 18:00 02/27/19 17:59 02/23/19 17:32 Guaifenesin (Mucinex ER) 600 mg TWICE A DAY ORAL 02/07/19 18:00 03/09/19 08:59 02/24/19 09:25 Hydralazine HCl (Apresoline) 10 mg Q4H PRN IV bp over 165 syst 02/17/19 10:15 03/19/19 10:14 02/19/19 14:45 Hydralazine HCl (Apresoline) 50 mg Q8HR NG 02/22/19 14:00 03/21/19 21:59 02/24/19 14:22 Insulin Aspart (NovoLOG) EVERY 4 HOURS SUBQ 02/15/19 21:00 03/17/19 20:59 02/24/19 12:42 Insulin Detemir (Levemir) 6 units BID SUBQ 02/24/19 09:00 03/22/19 08:59 02/24/19 10:22 Isosorbide Dinitrate (Isordil) 20 mg Q6HR NG 02/22/19 12:00 03/15/19 12:59 02/24/19 12:40 Lorazepam (Ativan 2mg/ml 1ml) 2 mg Q2H PRN IV agitation/restlessness 02/19/19 22:00 02/26/19 21:44 02/24/19 09:49 Lorazepam (Ativan) 1 mg Q4H PRN ORAL For Anxiety 02/19/19 15:15 02/26/19 15:14 02/19/19 15:21 Methylprednisolone Sodium Succinate (Solu-MEDROL) 10 mg EVERY 12 HOURS IVP 02/19/19 21:00 03/12/19 20:59 02/24/19 09:24 Metolazone (Zaroxolyn) 10 mg DAILY NG 02/19/19 10:00 03/21/19 09:59 02/24/19 09:24 Metoprolol Tartrate (Lopressor) 100 mg Q12HR ORAL 02/22/19 21:00 03/08/19 20:59 02/24/19 09:25 Midazolam HCl (Versed 2mg/2ml vial) 1 mg Q2H PRN IVP Agitation 02/13/19 08:45 03/15/19 08:44 02/23/19 05:01 Neomycin/ Polymyxin/ Dexamethasone (Maxitrol Opth Oint) 1 applic BEDTIME BOTH EYES 02/18/19 21:00 03/20/19 20:59 02/23/19 20:34 Nitroglycerin (Ntg) 0.4 mg Q5M PRN SL Prn Chest Pain 02/07/19 11:00 03/08/19 17:29 02/08/19 07:42 Ondansetron HCl (Zofran) 4 mg Q6H PRN IVP Nausea & Vomiting 02/07/19 11:15 03/08/19 11:14 02/09/19 00:58 Pantoprazole (Protonix) 40 mg EVERY 12 HOURS IVP 02/22/19 21:00 03/24/19 20:59 02/24/19 09:25 Patient Own Medication (Patient's Own Med) 1 ea BID ORAL 02/07/19 18:00 03/09/19 17:59 02/24/19 09:26 Patient Own Medication (Patient's Own Med) 1 ea Q48H ORAL 02/18/19 09:00 03/20/19 08:59 02/24/19 09:26 Patient Own Medication (Patient's Own Med) 2 ea DAILY ORAL 02/08/19 09:00 03/10/19 08:59 02/24/19 09:27 Piperacillin Sod/ Tazobactam Sod 3.375 gm/Sodium Chloride 110 ml @ 27.5 mls/hr EVERY 8 HOURS IVPB 02/20/19 14:00 02/25/19 13:59 02/24/19 14:22 Polyethylene Glycol (Miralax) 17 gm BEDTIME ORAL 02/08/19 21:00 03/10/19 20:59 02/23/19 20:34 Sennosides (Senokot) 8.6 mg DAILY ORAL 02/13/19 12:00 03/15/19 11:59 02/24/19 09:24 Trimethoprim/ Sulfamethoxazole 25 ml/Dextrose 575 ml @ 383.333 mls/hr [id number] BACTRIM IV 02/20/19 12:00 02/27/19 11:59 02/24/19 09:24 Russ Tony MD Feb 24, 2019 17:32
--- NOTE | 2019-02-24 17:48 | NUR ---
NURSE NOTES: right elbow remain skin remain intact, it is pink and blanchable. tolerating tube feeding of 25ml/hr running through NG-tube. will continue plan of care.
[2019-02-24] MEDS ORDERED: Tubing IV Secondary IV ONE (18:03)
[2019-02-24] MEDS ORDERED: D5 1/2NS 1000ml IV ONE (18:03)
--- NOTE | 2019-02-24 19:16 | NUR ---
HAND-OFF: Report given to TESSA Alva. Patient remains on fentanyl at 280mcg/hr, he remains at RASS of -2.
[2019-02-24] MEDS: Dyna-Hex 2% Top Sol 2oz TOPIC SCH (19:42)
--- NOTE | 2019-02-24 19:45 | NUR ---
NURSE NOTES: PATIENT DROWSY, ON ETT TO VENT, AC 24/TV 550/FIO2 40%/PEEP 5, O2 SATURATION OVER 97% NOTED, NGT TUBE INTACT AND PATENT, ONGOING GLUCERNA 1.2 AT 25ML/HR, RESIDUE 130ML NOTED, ABDOMEN DISTENDED, TENDER, KEPT HOB OVER 30 DEGREE, RECTAL TUBE INTACT, BROWN COLOR STOOL OUTED, F/C INTACT AND PATENT, YELLOW COLOR OUTED, JOAN CATH WITH PIG TAIL TO LEFT FEMORAL, PERIPHERAL LINE TO LEFT FA AND HAND, INTACT AND PATENT, ONGOING FENTANYL DRIP 300MCG/HR VIA JOAN W/ PIG TAIL, 2 POINT SOFT RESTRAINT STATUS, SCD'S TO RIGHT LOWER LEGS, ON P200 BED, MADE LOWER BED POSITION AND PROVIDED CALL LIGHT WITHIN REACH, WILL CONTINUE TO MONITOR.
--- NOTE | 2019-02-24 20:06 | Hematology/Onc Progress Note ---
Assessment/Plan Assessment/Plan # Anemia of chronic disease due to underlying chronic medical issues, multifactorial --> Anemia workup has been reviewed. Ferritin 182 --> No evidence of hemolysis is noted, peripheral smear has been reviewed. --> Hgb goal >7. Transfuse prn. --> Epogen or iron at this time is not particularly indicated --> Medications have been reviewed --> Stool OB negative --> bone marrow biopsy is not indicated given the other more likely causes --> Blood tx: 1 unit on 02/10/19, 02/22/2019 --> Hgb trend: 7.6-->8.2-->9.4-->8.4-->8.2 -->8.9-->10.3->7.9-->8.1->7.8--> 9.2- -> 9.0 # Thrombocytopenia - potential causes multifactorial, likely related to HIV status --> Hep panel pending and HIV confirmed positive --> US abd to evaluate for cirrhosis hows hepatosplenomegaly --> Peripheral smear ordered to evaluate for blasts /schistocytes does not show any --> abx and other meds have been reviewed --> ok for ppx if plt >50k w/ either heparin or lovenox --> Transfuse if Plt < 20k and fever, or if Plt < 10k without fever --> Plt trend: 153-->257-->224-->205-->253-->310-->201--> 202 --> WILLIAM screen negative # Multilobar pneumonia in patient with HIV. Recs per ID. --> Broad sp atbx started. Continue Zosyn, Vancomycin and Azithromycin --> Droplet precaution # Hypoxemic respiratory failure. Pulm is following, appreciate recs. --> Bipap as needed, transition to O2 via NC when able --> Due to pneumonia, on abx --> now intubated 02/20 # Chest pain. 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 --> Trend troponin x3 --> NGT prn # HIV. --> Continue HARRT --> VL is undetectable per patient report. # HTN --> Resume home medication # DVT and GI ppx The time the note is entered does not reflect the time the patient was examined. I greatly appreciate the consultation. Subjective Allergies: Coded Allergies: No Known Allergies (Unverified , 02/05/13) Subjective Subjective 02/11: Hgb yesterday was 7.6, s/p 1 unit prbc. Current hgb at 8.2. Pt attempted to pull out tubes per nursing team, soft restraints applied. 02/13: Pt in ICU and intubated. Pt currently sedated. Current hgb 9.4. 02/14: Pt remains in icu, sedated. Hgb stable. 02/15: Remains in icu, lethargic. No acute events. Hgb stable. 02/16: Remains in icu. CXR today shows worsening CHF/pulmonary edema. Pt wake and sedation decrease for weaning. 02/18: Remains in icu. Pt on vent. CXR today shows pulmonary edema, persistent small left pleural effusion. 02/19: Remains in the icu, now extubated, seen by pulm, labs reviewed 02/20: Remains in ICU, Pt intubated, CXR today shows Congestive heart failure with interval worsening 02/21: reintubated, tolerating vent well, seen by pulm/cc 02/23: pt remains on fently gtt, prn ativan, currenlty intubated on vent, no further bleeding, d/w RN> 02/24:failed weaning, fentanyl drip decreased. Objective Objective Current Medications Medications (Trade) Dose Ordered Sig/Marquis Route PRN Reason Start Time Stop Time Status Last Admin Dose Admin Acetaminophen (Tylenol) 650 mg Q4H PRN ORAL Mild Pain (Pain Scale 1-3) 02/07/19 11:15 03/08/19 17:29 02/22/19 14:37 Acetaminophen/ Butalbital/ Caffeine (Fioricet) 1 tab Q8H PRN ORAL For Headache 02/08/19 17:15 03/10/19 17:14 Albuterol/ Ipratropium (Albuterol/ Ipratropium) 3 ml Q4HRT HHN 02/20/19 03:00 02/25/19 02:59 02/24/19 18:48 Amlodipine Besylate (Norvasc) 10 mg DAILY NG 02/15/19 09:00 03/14/19 15:59 02/24/19 09:25 Artificial Tears (Lacri-Lube) 1 applic AC+HS BOTH EYES 02/18/19 06:30 03/20/19 06:29 02/24/19 17:25 Bisacodyl (Dulcolax) 5 mg DAILYPRN PRN ORAL Constipation 02/08/19 17:15 03/10/19 17:14 02/18/19 20:13 Chlorhexidine Gluconate (Jessy-Hex 2%) 1 applic DAILY@2000 TOPIC 02/13/19 20:00 03/15/19 19:59 02/24/19 19:42 Clonidine HCl (Catapres Tab) 0.1 mg EVERY 6 HOURS NG 02/20/19 12:00 03/19/19 13:59 02/24/19 17:28 Dextrose (Dextrose 50%) 25 ml Q30M PRN IV Hypoglycemia 02/20/19 06:45 03/22/19 06:44 Dextrose (Dextrose 50%) 50 ml Q30M PRN IV Hypoglycemia 02/20/19 06:45 03/22/19 06:44 02/20/19 08:49 Docusate Sodium (Colace) 100 mg TID GT 02/12/19 18:00 03/12/19 08:59 02/24/19 17:26 Fentanyl Citrate 2500 mcg/Sodium Chloride 250 ml @ 0 mls/hr Q24H IV 02/23/19 20:30 03/02/19 20:29 02/24/19 14:15 Fluconazole/ Sodium Chloride 100 ml @ 100 mls/hr Q24H IV 02/20/19 18:00 02/27/19 17:59 02/24/19 17:25 Guaifenesin (Mucinex ER) 600 mg TWICE A DAY ORAL 02/07/19 18:00 03/09/19 08:59 02/24/19 17:26 Hydralazine HCl (Apresoline) 10 mg Q4H PRN IV bp over 165 syst 02/17/19 10:15 03/19/19 10:14 02/19/19 14:45 Hydralazine HCl (Apresoline) 50 mg Q8HR NG 02/22/19 14:00 03/21/19 21:59 02/24/19 14:22 Insulin Aspart (NovoLOG) EVERY 4 HOURS SUBQ 02/15/19 21:00 03/17/19 20:59 02/24/19 17:37 Insulin Detemir (Levemir) 6 units BID SUBQ 02/24/19 09:00 03/22/19 08:59 02/24/19 17:36 Isosorbide Dinitrate (Isordil) 20 mg Q6HR NG 02/22/19 12:00 03/15/19 12:59 02/24/19 17:28 Lorazepam (Ativan 2mg/ml 1ml) 2 mg Q2H PRN IV agitation/restlessness 02/19/19 22:00 02/26/19 21:44 02/24/19 09:49 Lorazepam (Ativan) 1 mg Q4H PRN ORAL For Anxiety 02/19/19 15:15 02/26/19 15:14 02/19/19 15:21 Methylprednisolone Sodium Succinate (Solu-MEDROL) 10 mg EVERY 12 HOURS IVP 02/19/19 21:00 03/12/19 20:59 02/24/19 09:24 Metolazone (Zaroxolyn) 10 mg DAILY NG 02/19/19 10:00 03/21/19 09:59 02/24/19 09:24 Metoprolol Tartrate (Lopressor) 100 mg Q12HR ORAL 02/22/19 21:00 03/08/19 20:59 02/24/19 09:25 Midazolam HCl (Versed 2mg/2ml vial) 1 mg Q2H PRN IVP Agitation 02/13/19 08:45 03/15/19 08:44 02/23/19 05:01 Neomycin/ Polymyxin/ Dexamethasone (Maxitrol Opth Oint) 1 applic BEDTIME BOTH EYES 02/18/19 21:00 03/20/19 20:59 02/23/19 20:34 Nitroglycerin (Ntg) 0.4 mg Q5M PRN SL Prn Chest Pain 02/07/19 11:00 03/08/19 17:29 02/08/19 07:42 Ondansetron HCl (Zofran) 4 mg Q6H PRN IVP Nausea & Vomiting 02/07/19 11:15 03/08/19 11:14 02/09/19 00:58 Pantoprazole (Protonix) 40 mg EVERY 12 HOURS IVP 02/22/19 21:00 03/24/19 20:59 02/24/19 09:25 Patient Own Medication (Patient's Own Med) 1 ea BID ORAL 02/07/19 18:00 03/09/19 17:59 02/24/19 17:26 Patient Own Medication (Patient's Own Med) 1 ea Q48H ORAL 02/18/19 09:00 03/20/19 08:59 02/24/19 09:26 Patient Own Medication (Patient's Own Med) 2 ea DAILY ORAL 02/08/19 09:00 03/10/19 08:59 02/24/19 09:27 Piperacillin Sod/ Tazobactam Sod 3.375 gm/Sodium Chloride 110 ml @ 27.5 mls/hr EVERY 8 HOURS IVPB 02/24/19 22:00 03/01/19 21:59 Polyethylene Glycol (Miralax) 17 gm BEDTIME ORAL 02/08/19 21:00 03/10/19 20:59 02/23/19 20:34 Sennosides (Senokot) 8.6 mg DAILY ORAL 02/13/19 12:00 03/15/19 11:59 02/24/19 09:24 Trimethoprim/ Sulfamethoxazole 25 ml/Dextrose 575 ml @ 383.333 mls/hr U4AG-MT BACTRIM IV 02/20/19 12:00 02/27/19 11:59 02/24/19 17:25 Last 24 Hour Vital Signs Date Time Temp Pulse Resp B/P (MAP) Pulse Ox O2 Delivery O2 Flow Rate FiO2 02/24/19 19:00 73 24 129/71 (90) 100 02/24/19 18:58 76 24 100 Mechanical Ventilator 40 02/24/19 18:48 71 25 40 02/24/19 18:48 71 25 98 Mechanical Ventilator 40 02/24/19 18:30 72 24 139/68 (91) 98 02/24/19 18:00 24 Mechanical Ventilator 40 02/24/19 18:00 73 24 126/65 (85) 97 02/24/19 17:30 70 24 119/61 (80) 97 02/24/19 17:28 125/66 02/24/19 17:28 125/66 02/24/19 17:00 70 24 40 02/24/19 17:00 24 Mechanical Ventilator 40 02/24/19 17:00 71 24 120/64 (82) 98 02/24/19 16:30 70 24 126/57 (80) 98 02/24/19 16:00 40 02/24/19 16:00 75 02/24/19 16:00 70 24 126/57 (80) 98 02/24/19 16:00 24 Mechanical Ventilator 40 02/24/19 16:00 Mechanical Ventilator Mechanical Ventilator 02/24/19 15:30 75 24 137/69 (91) 98 02/24/19 15:00 24 Mechanical Ventilator 40 02/24/19 15:00 75 24 120/63 (82) 98 02/24/19 14:54 71 24 100 Mechanical Ventilator 40 02/24/19 14:52 72 26 40 02/24/19 14:50 72 24 100 Mechanical Ventilator 40 02/24/19 14:30 71 24 140/75 (96) 99 02/24/19 14:22 134/70 02/24/19 14:15 24 Mechanical Ventilator 40 02/24/19 14:00 24 Mechanical Ventilator 40 02/24/19 14:00 72 24 134/70 (91) 100 02/24/19 13:30 74 24 129/71 (90) 98 02/24/19 13:00 24 Mechanical Ventilator 40 02/24/19 13:00 68 24 130/71 (90) 97 02/24/19 12:40 118/58 02/24/19 12:35 69 26 40 02/24/19 12:30 65 24 118/58 (78) 98 02/24/19 12:00 98.1 64 24 121/68 (85) 98 02/24/19 12:00 24 Mechanical Ventilator 40 02/24/19 12:00 118/58 02/24/19 12:00 40 02/24/19 12:00 Mechanical Ventilator Mechanical Ventilator 02/24/19 12:00 67 02/24/19 11:30 67 24 121/64 (83) 97 02/24/19 11:00 75 24 131/68 (89) 99 02/24/19 11:00 24 Mechanical Ventilator 40 02/24/19 10:44 72 24 100 Mechanical Ventilator 40 02/24/19 10:42 72 26 40 02/24/19 10:36 73 24 100 Mechanical Ventilator 40 02/24/19 10:30 71 24 125/61 (82) 100 02/24/19 10:00 71 24 136/72 (93) 98 02/24/19 10:00 24 Mechanical Ventilator 40 02/24/19 09:30 80 24 136/65 (88) 98 02/24/19 09:25 81 145/72 02/24/19 09:25 80 145/72 02/24/19 09:00 24 Mechanical Ventilator 40 02/24/19 09:00 81 24 145/72 (96) 98 02/24/19 08:36 77 24 40 02/24/19 08:30 82 24 153/66 (95) 98 02/24/19 08:00 82 02/24/19 08:00 24 Mechanical Ventilator 40 02/24/19 08:00 40 02/24/19 08:00 Mechanical Ventilator Mechanical Ventilator 02/24/19 08:00 98.7 75 24 140/73 (95) 96 02/24/19 07:30 72 24 122/74 (90) 96 02/24/19 07:01 78 24 99 Mechanical Ventilator 40 02/24/19 07:00 72 24 132/65 (87) 96 02/24/19 07:00 20 Mechanical Ventilator 40 02/24/19 06:58 73 24 40 02/24/19 06:55 79 24 99 Mechanical Ventilator 40 02/24/19 06:30 74 17 139/77 (97) 100 02/24/19 06:00 70 22 128/75 (92) 99 02/24/19 06:00 22 Mechanical Ventilator 40 02/24/19 05:46 148/84 02/24/19 05:45 148/84 02/24/19 05:45 148/84 02/24/19 05:30 72 24 40 02/24/19 05:30 74 19 150/79 (102) 99 02/24/19 05:00 79 17 149/52 (84) 97 02/24/19 05:00 17 Mechanical Ventilator 40 02/24/19 04:30 74 19 140/73 (95) 98 02/24/19 04:12 24 Mechanical Ventilator 40 02/24/19 04:00 Mechanical Ventilator Mechanical Ventilator 02/24/19 04:00 98.3 74 24 136/74 (94) 98 02/24/19 04:00 40 02/24/19 03:30 71 22 129/65 (86) 99 02/24/19 03:05 65 24 100 Mechanical Ventilator 40 02/24/19 03:01 64 02/24/19 03:00 22 Mechanical Ventilator 40 02/24/19 03:00 64 22 110/57 (74) 100 02/24/19 02:55 63 24 100 Mechanical Ventilator 40 02/24/19 02:55 63 24 40 02/24/19 02:30 63 23 108/67 (81) 98 02/24/19 02:00 24 Non-Rebreather 40 02/24/19 02:00 64 24 110/60 (77) 98 02/24/19 01:30 72 24 127/67 (87) 98 02/24/19 01:17 75 24 40 02/24/19 01:00 64 24 106/62 (77) 97 02/24/19 01:00 24 Mechanical Ventilator 40 02/24/19 00:30 69 21 105/60 (75) 97 02/24/19 00:00 97.4 77 24 120/57 (78) 98 02/24/19 00:00 Mechanical Ventilator Mechanical Ventilator 02/24/19 00:00 24 Mechanical Ventilator 40 02/23/19 23:40 123/70 02/23/19 23:40 123/70 02/23/19 23:30 71 24 123/70 (87) 97 02/23/19 23:10 75 24 99 Mechanical Ventilator 40 02/23/19 23:02 69 02/23/19 23:00 64 24 99 Mechanical Ventilator 40 02/23/19 23:00 69 24 152/70 (97) 100 02/23/19 23:00 64 24 40 02/23/19 23:00 24 Mechanical Ventilator 40 02/23/19 22:30 64 21 106/85 (92) 98 02/23/19 22:00 63 24 110/59 (76) 98 02/23/19 22:00 24 Mechanical Ventilator 40 02/23/19 21:39 110/61 02/23/19 21:30 64 22 110/63 (79) 99 02/23/19 21:09 66 24 40 02/23/19 21:00 67 24 106/58 (74) 99 02/23/19 20:35 69 111/54 02/23/19 20:30 70 24 111/54 (73) 99 7/5/19 20:08 21 Mechanical Ventilator 40 02/23/19 20:00 24 Mechanical Ventilator 40 02/23/19 20:00 40 02/23/19 20:00 98.7 77 24 121/61 (81) 99 02/23/19 20:00 Mechanical Ventilator Mechanical Ventilator 02/23/19 19:48 89 02/23/19 19:35 71 24 100 Mechanical Ventilator 40 02/23/19 19:30 75 21 132/67 (88) 98 02/23/19 19:25 75 25 100 Mechanical Ventilator 40 02/23/19 19:23 75 25 40 02/23/19 19:00 24 Mechanical Ventilator 40 02/23/19 19:00 74 24 130/64 (86) 99 02/23/19 18:45 74 24 124/73 (90) 98 02/23/19 18:00 76 24 150/78 (102) 97 02/23/19 18:00 24 Mechanical Ventilator 40 02/23/19 17:45 79 24 150/78 (102) 97 02/23/19 17:32 144/68 02/23/19 17:31 144/68 02/23/19 17:30 75 24 132/67 (88) 97 02/23/19 17:15 73 24 144/68 (93) 97 02/23/19 17:00 80 24 152/88 (109) 97 02/23/19 17:00 24 Mechanical Ventilator 40 02/23/19 17:00 68 24 40 02/23/19 16:51 24 Mechanical Ventilator 40 02/23/19 16:50 24 Mechanical Ventilator 40 02/23/19 16:00 40 02/23/19 16:00 98.1 70 24 122/61 (81) 99 02/23/19 16:00 Mechanical Ventilator Mechanical Ventilator 02/23/19 16:00 24 Mechanical Ventilator 40 02/23/19 16:00 70 02/23/19 15:12 68 24 97 Mechanical Ventilator 40 02/23/19 15:04 69 24 96 Mechanical Ventilator 40 02/23/19 15:04 69 24 40 02/23/19 15:00 24 Mechanical Ventilator 40 02/23/19 15:00 69 24 128/60 (82) 97 02/23/19 14:00 24 Mechanical Ventilator 40 02/23/19 14:00 70 24 131/87 (102) 97 02/23/19 13:42 136/68 02/23/19 13:31 25 Mechanical Ventilator 40 02/23/19 13:00 24 Mechanical Ventilator 40 02/23/19 13:00 82 24 122/80 (94) 97 02/23/19 12:57 69 29 40 02/23/19 12:00 40 02/23/19 12:00 Mechanical Ventilator Mechanical Ventilator 02/23/19 12:00 69 02/23/19 12:00 24 Mechanical Ventilator 40 02/23/19 12:00 98.3 69 24 135/67 (89) 99 02/23/19 11:51 129/66 02/23/19 11:50 129/66 02/23/19 11:33 66 24 99 Mechanical Ventilator 40 02/23/19 11:23 63 24 97 Mechanical Ventilator 40 02/23/19 11:23 63 24 40 02/23/19 11:00 69 24 150/78 (102) 97 02/23/19 11:00 24 Mechanical Ventilator 40 02/23/19 10:39 28 Mechanical Ventilator 40 02/23/19 10:00 65 24 133/70 (91) 97 02/23/19 10:00 24 Mechanical Ventilator 40 02/23/19 09:20 74 134/66 02/23/19 09:19 73 134/72 02/23/19 09:00 24 Mechanical Ventilator 40 02/23/19 09:00 73 24 134/66 (88) 99 02/23/19 08:55 73 28 40 02/23/19 08:00 73 02/23/19 08:00 98.3 72 24 124/74 (91) 99 02/23/19 08:00 24 Mechanical Ventilator 40 02/23/19 08:00 40 02/23/19 08:00 Mechanical Ventilator Mechanical Ventilator 02/23/19 07:05 72 24 100 Mechanical Ventilator 40 02/23/19 07:00 73 23 123/66 (85) 100 02/23/19 07:00 24 Mechanical Ventilator 40 02/23/19 06:55 71 24 40 02/23/19 06:55 71 24 99 Mechanical Ventilator 40 02/23/19 06:35 18 Mechanical Ventilator 40 02/23/19 06:30 73 17 131/65 (87) 99 02/23/19 06:00 75 17 124/72 (89) 96 02/23/19 05:49 131/73 02/23/19 05:48 131/73 02/23/19 05:48 131/73 02/23/19 05:35 16 Mechanical Ventilator 40 02/23/19 05:34 18 Mechanical Ventilator 40 02/23/19 05:30 73 20 131/73 (92) 99 02/23/19 05:06 77 25 40 02/23/19 05:00 74 18 136/67 (90) 96 02/23/19 05:00 18 Mechanical Ventilator 40 02/23/19 04:30 77 25 143/72 (95) 97 02/23/19 04:00 97.2 82 17 141/95 (110) 94 02/23/19 04:00 20 Mechanical Ventilator 40 02/23/19 04:00 77 02/23/19 04:00 Mechanical Ventilator Mechanical Ventilator 02/23/19 04:00 40 02/23/19 03:30 73 23 123/67 (85) 96 02/23/19 03:00 69 23 119/59 (79) 96 02/23/19 03:00 18 Mechanical Ventilator 40 02/23/19 02:58 78 24 100 Mechanical Ventilator 40 02/23/19 02:48 72 24 97 Mechanical Ventilator 40 02/23/19 02:43 78 26 40 02/23/19 02:30 72 24 134/62 (86) 97 02/23/19 02:00 25 Mechanical Ventilator 40 02/23/19 02:00 79 24 156/74 (101) 94 02/23/19 01:30 69 24 110/56 (74) 94 02/23/19 01:20 68 24 40 02/23/19 01:00 71 24 121/59 (79) 95 02/23/19 01:00 22 Mechanical Ventilator 40 02/23/19 00:30 23 Mechanical Ventilator 40 02/23/19 00:30 76 15 91/68 (76) 95 02/23/19 00:00 97.8 71 13 122/68 (86) 95 02/23/19 00:00 18 Mechanical Ventilator 40 02/23/19 00:00 Mechanical Ventilator Mechanical Ventilator 02/22/19 23:41 135/66 02/22/19 23:41 135/66 02/22/19 23:30 70 24 127/63 (84) 98 02/22/19 23:30 20 Mechanical Ventilator 40 02/22/19 23:15 73 24 100 Mechanical Ventilator 40 02/22/19 23:00 69 22 120/56 (77) 99 02/22/19 22:49 67 24 40 02/22/19 22:48 67 24 98 Mechanical Ventilator 40 02/22/19 22:30 18 Mechanical Ventilator 40 02/22/19 22:30 69 23 126/66 (86) 98 02/22/19 22:00 73 14 132/70 (90) 98 02/22/19 21:32 71 120/58 02/22/19 21:32 120/58 02/22/19 21:30 20 Mechanical Ventilator 40 02/22/19 21:30 71 23 120/54 (76) 100 02/22/19 21:00 70 24 119/60 (79) 100 02/22/19 20:55 69 24 40 02/22/19 20:30 19 Mechanical Ventilator 40 02/22/19 20:30 71 23 125/61 (82) 100 Intake and Output 02/23/19 02/24/19 19:00 07:00 Intake Total 878.0 ml 2209.0 ml Output Total 1120 ml 880 ml Balance -242.0 ml 1329.0 ml IV Total 878.0 ml 1999.0 ml Other 210 ml Output Urine Total 1120 ml 860 ml Gastric Drainage Total 20 ml # Bowel Movements 50 Labs Test 02/22/19 04:36 02/22/19 17:30 02/23/19 04:30 02/23/19 08:14 White Blood Count 7.2 K/UL (4.8-10.8) 7.5 K/UL (4.8-10.8) Red Blood Count 2.36 M/UL (4.70-6.10) 3.18 M/UL (4.70-6.10) Hemoglobin 6.7 G/DL (14.2-18.0) 9.2 G/DL (14.2-18.0) Hematocrit 20.6 % (42.0-52.0) 27.0 % (42.0-52.0) Mean Corpuscular Volume 87 FL (80-99) 85 FL (80-99) Mean Corpuscular Hemoglobin 28.3 PG (27.0-31.0) 29.0 PG (27.0-31.0) Mean Corpuscular Hemoglobin Concent 32.5 G/DL (32.0-36.0) 34.2 G/DL (32.0-36.0) Red Cell Distribution Width 17.6 % (11.6-14.8) 15.5 % (11.6-14.8) Platelet Count 150 K/UL (150-450) 150 K/UL (150-450) Mean Platelet Volume 6.4 FL (6.5-10.1) 6.2 FL (6.5-10.1) Neutrophils (%) (Auto) % (45.0-75.0) 86.9 % (45.0-75.0) Lymphocytes (%) (Auto) % (20.0-45.0) 6.3 % (20.0-45.0) Monocytes (%) (Auto) % (1.0-10.0) 6.3 % (1.0-10.0) Eosinophils (%) (Auto) % (0.0-3.0) 0.0 % (0.0-3.0) Basophils (%) (Auto) % (0.0-2.0) 0.5 % (0.0-2.0) Differential Total Cells Counted 100 Neutrophils % (Manual) 92 % (45-75) Lymphocytes % (Manual) 4 % (20-45) Monocytes % (Manual) 4 % (1-10) Eosinophils % (Manual) 0 % (0-3) Basophils % (Manual) 0 % (0-2) Band Neutrophils 0 % (0-8) Platelet Estimate Adequate Platelet Morphology Normal Hypochromasia 4+ Anisocytosis 1+ Spherocytes 3+ Sodium Level 139 MMOL/L (136-145) 135 MMOL/L (136-145) Potassium Level 4.5 MMOL/L (3.5-5.1) 4.5 MMOL/L (3.5-5.1) Chloride Level 104 MMOL/L (98-107) 100 MMOL/L (98-107) Carbon Dioxide Level 25 MMOL/L (21-32) 26 MMOL/L (21-32) Anion Gap 10 mmol/L (5-15) 10 mmol/L (5-15) Blood Urea Nitrogen 55 mg/dL (7-18) 58 mg/dL (7-18) Creatinine 2.7 MG/DL (0.55-1.30) 2.6 MG/DL (0.55-1.30) Estimat Glomerular Filtration Rate 24.3 mL/min (>60) 25.4 mL/min (>60) Glucose Level 151 MG/DL (74-106) 93 MG/DL (74-106) Uric Acid 3.6 MG/DL (2.6-7.2) Calcium Level 7.9 MG/DL (8.5-10.1) 8.0 MG/DL (8.5-10.1) Phosphorus Level 4.1 MG/DL (2.5-4.9) Magnesium Level 1.8 MG/DL (1.8-2.4) Total Bilirubin 0.5 MG/DL (0.2-1.0) Aspartate Amino Transf (AST/SGOT) 55 U/L (15-37) Alanine Aminotransferase (ALT/SGPT) 65 U/L (12-78) Alkaline Phosphatase 97 U/L (46-116) C-Reactive Protein, Quantitative 13.9 mg/dL (0.00-0.90) Pro-B-Type Natriuretic Peptide 35978 pg/mL (0-125) Total Protein 5.3 G/DL (6.4-8.2) Albumin 2.1 G/DL (3.4-5.0) Globulin 3.2 g/dL Albumin/Globulin Ratio 0.7 (1.0-2.7) Arterial Blood pH 7.381 (7.350-7.450) Arterial Blood Partial Pressure CO2 39.0 mmHg (35.0-45.0) Arterial Blood Partial Pressure O2 88.5 mmHg (75.0-100.0) Arterial Blood HCO3 22.6 mmol/L (22.0-26.0) Arterial Blood Oxygen Saturation 95.9 % (95-100) Arterial Blood Base Excess -2.3 (-2-2) Benny Test Positive Test 02/24/19 04:45 White Blood Count 6.4 K/UL (4.8-10.8) Red Blood Count 3.14 M/UL (4.70-6.10) Hemoglobin 9.0 G/DL (14.2-18.0) Hematocrit 27.9 % (42.0-52.0) Mean Corpuscular Volume 89 FL (80-99) Mean Corpuscular Hemoglobin 28.8 PG (27.0-31.0) Mean Corpuscular Hemoglobin Concent 32.4 G/DL (32.0-36.0) Red Cell Distribution Width 17.1 % (11.6-14.8) Platelet Count 202 K/UL (150-450) Mean Platelet Volume 6.1 FL (6.5-10.1) Neutrophils (%) (Auto) % (45.0-75.0) Lymphocytes (%) (Auto) % (20.0-45.0) Monocytes (%) (Auto) % (1.0-10.0) Eosinophils (%) (Auto) % (0.0-3.0) Basophils (%) (Auto) % (0.0-2.0) Differential Total Cells Counted 100 Neutrophils % (Manual) 84 % (45-75) Lymphocytes % (Manual) 9 % (20-45) Monocytes % (Manual) 7 % (1-10) Eosinophils % (Manual) 0 % (0-3) Basophils % (Manual) 0 % (0-2) Band Neutrophils 0 % (0-8) Platelet Estimate Adequate Platelet Morphology Normal Anisocytosis 1+ Prothrombin Time 11.7 SEC (9.30-11.50) Prothromb Time International Ratio 1.1 (0.9-1.1) Activated Partial Thromboplast Time 31 SEC (23-33) Sodium Level 135 MMOL/L (136-145) Potassium Level 5.0 MMOL/L (3.5-5.1) Chloride Level 101 MMOL/L (98-107) Carbon Dioxide Level 24 MMOL/L (21-32) Anion Gap 10 mmol/L (5-15) Blood Urea Nitrogen 59 mg/dL (7-18) Creatinine 2.6 MG/DL (0.55-1.30) Estimat Glomerular Filtration Rate 25.4 mL/min (>60) Glucose Level 122 MG/DL (74-106) Calcium Level 8.1 MG/DL (8.5-10.1) Phosphorus Level 5.0 MG/DL (2.5-4.9) Magnesium Level 2.1 MG/DL (1.8-2.4) Total Bilirubin 0.5 MG/DL (0.2-1.0) Aspartate Amino Transf (AST/SGOT) 58 U/L (15-37) Alanine Aminotransferase (ALT/SGPT) 59 U/L (12-78) Alkaline Phosphatase 105 U/L (46-116) Total Protein 5.9 G/DL (6.4-8.2) Albumin 2.4 G/DL (3.4-5.0) Globulin 3.5 g/dL Albumin/Globulin Ratio 0.7 (1.0-2.7) Height (Feet): 6 Height (Inches): 0.00 Weight (Pounds): 274 Objective Objective PHYSICAL EXAMINATION: GENERAL: NAD, Sedated VITAL SIGNS: Have been reviewed. HEAD AND NECK: Shows no JVD. NG+ TRACH+ LUNGS: Coarse rhonchi. CARDIOVASCULAR: Shows regular S1 and S2 with no gallop or murmur. ABDOMEN: Soft, large + BS EXTREMITIES: No pitting edema. + Daniela Monson NP Feb 24, 2019 20:06
[2019-02-24] MEDS: Maxitrol Opth Oint 3.5gm BOTH EYES SCH (20:37)
[2019-02-24] MEDS: Miralax 17gm pkt ORAL SCH (20:37)
--- NOTE | 2019-02-24 20:38 | NUR ---
NURSE NOTES: PATIENT OPEN EYES, TRIED TO TOUCH LINE AND AGITATED THAT GIVEN ATIVAN 2MG BY IVP PRN ORDERED FOR AGITATION, WILL CONTINUE TO MONITOR.
[2019-02-24] MEDS: Piperacillin/Tazobactam 3.375 GM in NS 110 ML IVPB SCH (21:31)
--- NOTE | 2019-02-24 22:48 | NUR ---
NURSE NOTES: PATIENT AGITATED THAT GIVEN ATIVAN 2MG BY IVP PRN ORDERED FOR AGITATION, WILL CONTINUE TO MONITOR.
[2019-02-25] VITALS (36 sets, daily range): BP systolic 94–144; BP diastolic 52–94
--- NOTE | 2019-02-25 00:21 | NUR ---
NURSE NOTES: PATIENT SEDATED, KEPT RASS SCORE -2, ONGOING FENTANYL 320MCG/HR, WILL CONTINUE PLAN OF CARE.
[2019-02-25] MEDS: NovoLOG Insulin Flexpen SUBQ SCH ×6 (00:40→21:00)
--- NOTE | 2019-02-25 02:00 | NUR ---
NURSE NOTES: RELEASED RESTRAINTS AND REAPPLIED FOR SAFETY.
[2019-02-25] MEDS: LORazepam Inj 2mg/ml 1ml IV PRN ×3 (02:22→21:11)
--- NOTE | 2019-02-25 03:40 | NUR ---
NURSE NOTES: MORNING CARE WAS DONE, RECTAL TUBE INTACT, RESISTANCE TO CARE STATUS.
--- NOTE | 2019-02-25 05:30 | NUR ---
NURSE NOTES: PATIENT SLEEPING STATUS, ONGOING FENTANYL 280MCG/HR, RASS -2 NOTED.
[2019-02-25] MEDS: Piperacillin/Tazobactam 3.375 GM in NS 110 ML IVPB SCH ×2 (05:43→21:21)
[2019-02-25] MEDS: HydrALAZINE 50mg tab NG SCH ×3 (05:43→21:11)
[2019-02-25] MEDS: Lacri-Lube Opth Oint 3.5gm BOTH EYES SCH ×4 (05:44→20:56)
[2019-02-25 06:06] LABS: HEMATOCRIT 27.5 % (42.0-52.0); HEMOGLOBIN 8.8 G/DL (14.2-18.0); MEAN CORPUSCULAR VOLUME 90 FL (80-99); PLATELET COUNT 193 K/UL (150-450); RED BLOOD COUNT 3.07 M/UL (4.70-6.10); RED CELL DISTRIBUTION WIDTH 17.2 % (11.6-14.8)
[2019-02-25 06:30] LABS: ANION GAP 11 mmol/L (5-15); BLOOD UREA NITROGEN 66 mg/dL (7-18); CALCIUM 8.4 MG/DL (8.5-10.1); CARBON DIOXIDE 23 MMOL/L (21-32); CHLORIDE 100 MMOL/L (98-107); CREATININE 2.9 MG/DL (0.55-1.30); POTASSIUM 5.3 MMOL/L (3.5-5.1); SODIUM 134 MMOL/L (136-145)
--- NOTE | 2019-02-25 06:32 | NUR ---
NURSE NOTES: NGT INTACT, RESIDUE WAS 80ML NOTED AT 0400AM, ONGOING GLUCERNA 1.2 AT 25ML/HR, TOLERATED AT THIS TIME, KEPT HOB OVER 30 DEGREES, WILL CONTINUE PLAN OF CARE.
--- NOTE | 2019-02-25 07:01 | NUR ---
NURSE NOTES: SEEN THE PATIENT BY DR. YE.
--- NOTE | 2019-02-25 07:08 | NUR ---
RESPIRATORY NOTE: Received pt on AC 24-550ml-40%- peep 5. Pt was orally intubated with ETT size 7.5 @24 cm lip line. Addendum: 02/25/19 at 0756 by Dangelo N Stone RT Secured by anchor fast, bite block in place to prevent tube biting. Pt is sedated, resting comfortably in the bed. Carlton rhonchi diminished B/S, suctioned small amt of thick/thin white yellow secretions without incidents. No SOB or resp distress noted. Alarms are set and audible, vent is plugged into the red outlet, ambu bag is at bedside. Inform Jairo Alva that pt will be weaning at 0830, asked JAIRO Alva to inform dayshift nurse to take pt off sedation around 0800. Will continue to monitor pt closely.
--- NOTE | 2019-02-25 07:10 | NUR ---
NURSE NOTES: Received pt from TESSA Alva. Patient is sedated, RASS -2 lightly sedated. Pupils reactive. Patient to be weaned today and ABG draw 30 mins after. Orally intubated, ETT 7.5/24cm at lip line, Vent settings AC 24/TV 550/Fio2 40%/+5, Spo2 98%, RR 24. Course rhonchi heard bilateral b/s. Left NGT running Glucerna 1.2@25ml/hr, 15ml residual, HOB 35 degrees. Abd round, firm and distended. Generalized edema noted. Left femoral João catheter running IV abx, TKO asymptomatic and patent. LH 20G running Fentanyl@280mcg/kg/hr. No signs of bleeding. bilateral soft restraints in place as patient for safety and impulsiveness. FC draining well to gravity. Rectal tube draining loose stool to gravity. Bed locked, alarmed and in lowest position.
--- NOTE | 2019-02-25 07:15 | NUR ---
HAND-OFF: Report given to Michael KENT RN.
--- NOTE | 2019-02-25 07:30 | NUR ---
NURSE NOTES: Notified. Dr. Au and called [facility]. [facility] regarding potassium=5.3, dvveuk=629, BUN=66, Cr=2.9, awaiting for call back.
[2019-02-25] MEDS: fentaNYL Citrate 2500mcg in NS 250ml IV SCH ×2 (07:40→19:14)
[2019-02-25] MEDS: D5W IV SCH ×3 (08:54→23:42)
[2019-02-25] MEDS: SULFAMETHOXAZOLE IV SCH ×3 (08:54→23:42)
[2019-02-25] MEDS: TRIMETHOPRIM IV SCH ×3 (08:54→23:42)
[2019-02-25] MEDS: ETRAVIRINE 200 MG ORAL SCH (08:55)
[2019-02-25] MEDS: Solu-MEDROL 40mg Inj IVP SCH ×2 (08:55→20:56)
[2019-02-25] MEDS: RALTEGRAVIR 400 MG ORAL SCH ×2 (08:55→17:12)
[2019-02-25] MEDS: guaiFENesin ER 600mg tab ORAL SCH ×2 (08:55→17:11)
[2019-02-25] MEDS: Pantoprazole Inj IVP SCH (08:55)
[2019-02-25] MEDS: Docusate 100mg/10ml Liq GT SCH ×3 (08:56→17:11)
[2019-02-25] MEDS: Sennosides 8.6mg tab ORAL SCH (08:56)
[2019-02-25] MEDS: Levemir Flexpen SUBQ SCH (08:58)
--- NOTE | 2019-02-25 09:00 | NUR ---
NURSE NOTES: Dr. Mcdonald making rounds. Notified him of abnormal lab results. No new orders given.
--- NOTE | 2019-02-25 09:18 | NUR ---
NURSE NOTES: Blood sugar 61 mg/dl, no coverage given from sliding scale, held Levemir and notified PMD, awaiting for call back. Gave 1/2 cup of OJ via NGT. Tolerating TF, on-going Glucerna 1.2@25ml/hr, and patient just received Solumedrol 10mg IVP. Will recheck BS in 30 mins.
--- NOTE | 2019-02-25 09:18 | NUR ---
RESPIRATORY NOTE: pt is slightly sedated due to agitation. RN decreased sedation med Fentanyl from 280mcg to 50mcg at 0818. Placed pt on CPAP PS 8, peep 5. Pt is little agitated but tolerating well. RSBI 11, NIF -50, Vt 894ml, RR 11bpm, saturates at 99%. TESSA Arciniega made aware. ABG in 30 minutes. Will continue to monitor pt closely. Addendum: 02/25/19 at 0935 by Dangelo Stone RT Weaning order per Dr. Yan
--- NOTE | 2019-02-25 09:50 | NUR ---
NURSE NOTES: Rechecked blood sugar 102 mg/dl, within normal range.
[2019-02-25 10:00] LABS: ALANINE AMINOTRANSFERASE 59 U/L (12-78); ALBUMIN 2.5 G/DL (3.4-5.0); ALKALINE PHOSPHATASE 107 U/L (46-116); ASPARTATE AMINO TRANSFERASE 57 U/L (15-37); BILIRUBIN,DIRECT 0.3 MG/DL (0.0-0.3); BILIRUBIN,TOTAL 0.4 MG/DL (0.2-1.0); PHOSPHORUS 5.8 MG/DL (2.5-4.9)
--- NOTE | 2019-02-25 10:23 | NUR ---
NURSE NOTES: Patient scheduled to be weaned today. Reduced Fentanyl to 50 mcg/kg/hr. Patient placed on CPAP/PS 8, 30 mins after sedation reduced. ABG drawn 30 mins after CPAP. Results notified to Dr. Yan. Received orders to place patient back AC mode. No other orders.
--- NOTE | 2019-02-25 10:30 | NUR ---
NURSE NOTES: Patient placed back on AC mode but restless and agitated, trying to pull himself out of bed. Increased Fentanyl drip to 170 mcg/kg/hr. Still agitated. Gave Ativan 2mg IVP.
--- NOTE | 2019-02-25 10:40 | General Progress Note ---
Assessment/Plan Status: stable Assessment/Plan: 1. History of HIV. 2. Hypertension. 3. Vertigo. 4. History of headaches. 5. History of diabetes. 6. Respiratory failure 7. Dysphagia 8. ileus stable H&H NGTF ppi fu H&H prn blood transfusion change ppi to daily Subjective ROS Limited/Unobtainable: No Allergies: Coded Allergies: No Known Allergies (Unverified , 02/05/13) Objective Last 24 Hour Vital Signs Date Time Temp Pulse Resp B/P (MAP) Pulse Ox O2 Delivery O2 Flow Rate FiO2 02/25/19 10:13 72 26 40 02/25/19 09:18 99 02/25/19 09:18 75 11 40 02/25/19 08:57 63 110/65 02/25/19 08:56 63 122/65 02/25/19 08:10 98.2 02/25/19 08:00 74 02/25/19 08:00 40 02/25/19 08:00 Mechanical Ventilator Mechanical Ventilator 02/25/19 07:40 24 Mechanical Ventilator 40 02/25/19 07:08 63 24 40 02/25/19 07:00 63 20 122/65 (84) 100 02/25/19 07:00 20 Mechanical Ventilator 40 02/25/19 06:30 69 20 118/56 (76) 99 02/25/19 06:00 20 Mechanical Ventilator 40 02/25/19 06:00 62 20 125/57 (79) 99 02/25/19 05:44 129/67 02/25/19 05:44 129/67 02/25/19 05:43 129/67 02/25/19 05:30 64 20 129/67 (87) 100 02/25/19 05:05 69 24 40 02/25/19 05:00 71 18 143/75 (97) 100 02/25/19 05:00 18 Mechanical Ventilator 40 02/25/19 04:30 67 20 130/74 (92) 100 02/25/19 04:00 40 02/25/19 04:00 18 Mechanical Ventilator 40 02/25/19 04:00 98.2 77 18 103/76 (85) 96 02/25/19 04:00 Mechanical Ventilator Mechanical Ventilator 02/25/19 03:30 70 18 117/61 (79) 100 02/25/19 03:07 69 26 40 02/25/19 03:06 68 02/25/19 03:00 23 Mechanical Ventilator 40 02/25/19 03:00 66 23 120/56 (77) 100 02/25/19 02:30 72 21 120/59 (79) 98 02/25/19 02:00 20 Mechanical Ventilator 40 02/25/19 02:00 71 20 144/64 (90) 98 02/25/19 01:30 68 23 124/67 (86) 97 02/25/19 01:05 66 24 40 02/25/19 01:00 66 24 118/60 (79) 96 02/25/19 01:00 24 Mechanical Ventilator 40 02/25/19 00:30 66 24 113/57 (75) 96 02/25/19 00:00 98.1 67 24 113/57 (75) 96 02/25/19 00:00 24 Mechanical Ventilator 40 02/25/19 00:00 40 02/25/19 00:00 Mechanical Ventilator Mechanical Ventilator 02/24/19 23:40 67 02/24/19 23:38 119/61 02/24/19 23:37 119/61 02/24/19 23:30 67 24 119/61 (80) 96 02/24/19 23:18 65 24 100 Mechanical Ventilator 40 02/24/19 23:08 63 24 100 Mechanical Ventilator 40 02/24/19 23:08 63 24 40 02/24/19 23:00 24 Mechanical Ventilator 40 02/24/19 23:00 64 24 120/61 (80) 96 02/24/19 22:56 21 Mechanical Ventilator 40 02/24/19 22:30 64 24 98/81 (87) 96 02/24/19 22:00 65 22 117/61 (79) 96 02/24/19 22:00 24 Mechanical Ventilator 40 02/24/19 21:31 129/67 02/24/19 21:30 66 24 128/59 (82) 98 02/24/19 21:00 76 20 129/72 (91) 100 02/24/19 21:00 20 Mechanical Ventilator 40 02/24/19 20:56 78 29 40 02/24/19 20:38 77 135/70 02/24/19 20:30 76 20 135/70 (91) 95 02/24/19 20:00 40 02/24/19 20:00 98.2 75 19 135/62 (86) 95 02/24/19 20:00 19 Mechanical Ventilator 40 02/24/19 20:00 Mechanical Ventilator Mechanical Ventilator 02/24/19 19:30 76 20 136/69 (91) 97 02/24/19 19:30 20 Mechanical Ventilator 40 02/24/19 19:28 74 02/24/19 19:00 73 24 129/71 (90) 100 02/24/19 18:58 76 24 100 Mechanical Ventilator 40 02/24/19 18:48 71 25 40 02/24/19 18:48 71 25 98 Mechanical Ventilator 40 02/24/19 18:30 72 24 139/68 (91) 98 02/24/19 18:00 24 Mechanical Ventilator 40 02/24/19 18:00 73 24 126/65 (85) 97 02/24/19 17:30 70 24 119/61 (80) 97 02/24/19 17:28 125/66 02/24/19 17:28 125/66 02/24/19 17:00 70 24 40 02/24/19 17:00 24 Mechanical Ventilator 40 02/24/19 17:00 71 24 120/64 (82) 98 02/24/19 16:30 70 24 126/57 (80) 98 02/24/19 16:00 40 02/24/19 16:00 75 02/24/19 16:00 70 24 126/57 (80) 98 02/24/19 16:00 24 Mechanical Ventilator 40 02/24/19 16:00 Mechanical Ventilator Mechanical Ventilator 02/24/19 15:30 75 24 137/69 (91) 98 02/24/19 15:00 24 Mechanical Ventilator 40 02/24/19 15:00 75 24 120/63 (82) 98 02/24/19 14:54 71 24 100 Mechanical Ventilator 40 02/24/19 14:52 72 26 40 02/24/19 14:50 72 24 100 Mechanical Ventilator 40 02/24/19 14:30 71 24 140/75 (96) 99 02/24/19 14:22 134/70 02/24/19 14:15 24 Mechanical Ventilator 40 02/24/19 14:00 24 Mechanical Ventilator 40 02/24/19 14:00 72 24 134/70 (91) 100 02/24/19 13:30 74 24 129/71 (90) 98 02/24/19 13:00 24 Mechanical Ventilator 40 02/24/19 13:00 68 24 130/71 (90) 97 02/24/19 12:40 118/58 02/24/19 12:35 69 26 40 02/24/19 12:30 65 24 118/58 (78) 98 02/24/19 12:00 98.1 64 24 121/68 (85) 98 02/24/19 12:00 24 Mechanical Ventilator 40 02/24/19 12:00 118/58 02/24/19 12:00 40 02/24/19 12:00 Mechanical Ventilator Mechanical Ventilator 02/24/19 12:00 67 02/24/19 11:30 67 24 121/64 (83) 97 02/24/19 11:00 75 24 131/68 (89) 99 02/24/19 11:00 24 Mechanical Ventilator 40 02/24/19 10:44 72 24 100 Mechanical Ventilator 40 02/24/19 10:42 72 26 40 Intake and Output 02/24/19 02/25/19 19:00 07:00 Intake Total 2406.5 ml 1382.0 ml Output Total 1160 ml 735 ml Balance 1246.5 ml 647.0 ml Free Water 200 ml IV Total 2006.5 ml 1082.0 ml Tube Feeding 180 ml 100 ml Other 20 ml 200 ml Output Urine Total 1160 ml 705 ml Stool Total 30 ml Laboratory Tests 02/25/19 04:40: White Blood Count 6.0, Red Blood Count 3.07L, Hemoglobin 8.8L, Hematocrit 27.5L , Mean Corpuscular Volume 90, Mean Corpuscular Hemoglobin 28.6, Mean Corpuscular Hemoglobin Concent 32.0, Red Cell Distribution Width 17.2H, Platelet Count 193, Mean Platelet Volume 6.2L, Neutrophils (%) (Auto) , Lymphocytes (%) (Auto) , Monocytes (%) (Auto) , Eosinophils (%) (Auto) , Basophils (%) (Auto) , Differential Total Cells Counted 100, Neutrophils % ( Manual) 90H, Lymphocytes % (Manual) 7L, Monocytes % (Manual) 3, Eosinophils % ( Manual) 0, Basophils % (Manual) 0, Band Neutrophils 0, Platelet Estimate Adequate, Platelet Morphology Normal, Anisocytosis 1+, Sodium Level 134L, Potassium Level 5.3H, Chloride Level 100, Carbon Dioxide Level 23, Anion Gap 11 , Blood Urea Nitrogen 66H, Creatinine 2.9H, Estimat Glomerular Filtration Rate 22.4, Glucose Level 75, Calcium Level 8.4L, Phosphorus Level 5.8H, Magnesium Level 2.2, Total Bilirubin 0.4, Direct Bilirubin 0.3, Aspartate Amino Transf ( AST/SGOT) 57H, Alanine Aminotransferase (ALT/SGPT) 59, Alkaline Phosphatase 107 , Total Protein 6.1L, Albumin 2.5L 02/25/19 10:00: Arterial Blood pH 7.249*L, Arterial Blood Partial Pressure CO2 48.0H, Arterial Blood Partial Pressure O2 77.5, Arterial Blood HCO3 20.5L, Arterial Blood Oxygen Saturation 92.6L, Arterial Blood Base Excess -6.5L, Benny Test Positive Height (Feet): 6 Height (Inches): 0.00 Weight (Pounds): 264 General Appearance: lethargic EENT: normal ENT inspection Neck: supple Cardiovascular: normal rate Respiratory/Chest: decreased breath sounds Abdomen: normal bowel sounds, non tender, soft Kg Ricketts MD Feb 25, 2019 10:40
--- NOTE | 2019-02-25 12:03 | Nephrology Progress Note ---
Assessment/Plan Problem List: (1) ISH (acute kidney injury) Assessment: Cr lowering (2) HIV (human immunodeficiency virus infection) (3) NSTEMI (non-ST elevated myocardial infarction) Assessment: troponin decreasing (4) Hypoxia (5) Anemia (6) Diabetes Assessment Acute Renal failure- Cr leveling- Urine out put is good Acidosis improved Acute respiratory failure- Require intubation and Mechanical Ventilation- Anemia- Elevated troponin / IA HTN DM HIV Antibody + Plan adjust BP meds on feeding stop IV fluid IV protonix NGt suction transfusiosn start IV fluid BP med adjustment ? recheck 2D echo?? UA and urine studies Avoid Nephrotoxics as possible Monitor renal parameters keep BP and BS in check Per orders No HD at this time Kidney RADHA noted adjust BP meds add Isordil Subjective ROS Limited/Unobtainable: Yes Objective Objective Last 24 Hour Vital Signs Date Time Temp Pulse Resp B/P (MAP) Pulse Ox O2 Delivery O2 Flow Rate FiO2 02/25/19 11:00 24 Mechanical Ventilator 40 02/25/19 11:00 65 24 115/56 (75) 100 02/25/19 10:31 67 24 40 02/25/19 10:13 72 26 40 02/25/19 10:00 72 20 131/94 (106) 100 02/25/19 10:00 24 Mechanical Ventilator 40 02/25/19 09:18 99 02/25/19 09:18 75 11 40 02/25/19 09:00 75 20 120/64 (82) 100 02/25/19 09:00 24 Mechanical Ventilator 40 02/25/19 08:57 63 110/65 02/25/19 08:56 63 122/65 02/25/19 08:10 98.2 02/25/19 08:00 74 02/25/19 08:00 40 02/25/19 08:00 96.7 63 20 121/64 (83) 100 02/25/19 08:00 Mechanical Ventilator Mechanical Ventilator 02/25/19 08:00 24 Mechanical Ventilator 40 02/25/19 07:40 24 Mechanical Ventilator 40 02/25/19 07:08 63 24 40 02/25/19 07:00 63 20 122/65 (84) 100 02/25/19 07:00 20 Mechanical Ventilator 40 02/25/19 06:30 69 20 118/56 (76) 99 02/25/19 06:00 20 Mechanical Ventilator 40 02/25/19 06:00 62 20 125/57 (79) 99 02/25/19 05:44 129/67 02/25/19 05:44 129/67 02/25/19 05:43 129/67 02/25/19 05:30 64 20 129/67 (87) 100 02/25/19 05:05 69 24 40 02/25/19 05:00 71 18 143/75 (97) 100 02/25/19 05:00 18 Mechanical Ventilator 40 02/25/19 04:30 67 20 130/74 (92) 100 02/25/19 04:00 40 02/25/19 04:00 18 Mechanical Ventilator 40 02/25/19 04:00 98.2 77 18 103/76 (85) 96 02/25/19 04:00 Mechanical Ventilator Mechanical Ventilator 02/25/19 03:30 70 18 117/61 (79) 100 02/25/19 03:07 69 26 40 02/25/19 03:06 68 02/25/19 03:00 23 Mechanical Ventilator 40 02/25/19 03:00 66 23 120/56 (77) 100 02/25/19 02:30 72 21 120/59 (79) 98 02/25/19 02:00 20 Mechanical Ventilator 40 02/25/19 02:00 71 20 144/64 (90) 98 02/25/19 01:30 68 23 124/67 (86) 97 02/25/19 01:05 66 24 40 02/25/19 01:00 66 24 118/60 (79) 96 02/25/19 01:00 24 Mechanical Ventilator 40 02/25/19 00:30 66 24 113/57 (75) 96 02/25/19 00:00 98.1 67 24 113/57 (75) 96 02/25/19 00:00 24 Mechanical Ventilator 40 02/25/19 00:00 40 02/25/19 00:00 Mechanical Ventilator Mechanical Ventilator 02/24/19 23:40 67 02/24/19 23:38 119/61 02/24/19 23:37 119/61 02/24/19 23:30 67 24 119/61 (80) 96 02/24/19 23:18 65 24 100 Mechanical Ventilator 40 02/24/19 23:08 63 24 100 Mechanical Ventilator 40 02/24/19 23:08 63 24 40 02/24/19 23:00 24 Mechanical Ventilator 40 02/24/19 23:00 64 24 120/61 (80) 96 02/24/19 22:56 21 Mechanical Ventilator 40 02/24/19 22:30 64 24 98/81 (87) 96 02/24/19 22:00 65 22 117/61 (79) 96 02/24/19 22:00 24 Mechanical Ventilator 40 02/24/19 21:31 129/67 02/24/19 21:30 66 24 128/59 (82) 98 02/24/19 21:00 76 20 129/72 (91) 100 02/24/19 21:00 20 Mechanical Ventilator 40 02/24/19 20:56 78 29 40 02/24/19 20:38 77 135/70 02/24/19 20:30 76 20 135/70 (91) 95 02/24/19 20:00 40 02/24/19 20:00 98.2 75 19 135/62 (86) 95 02/24/19 20:00 19 Mechanical Ventilator 40 02/24/19 20:00 Mechanical Ventilator Mechanical Ventilator 02/24/19 19:30 76 20 136/69 (91) 97 02/24/19 19:30 20 Mechanical Ventilator 40 02/24/19 19:28 74 02/24/19 19:00 73 24 129/71 (90) 100 02/24/19 18:58 76 24 100 Mechanical Ventilator 40 02/24/19 18:48 71 25 40 02/24/19 18:48 71 25 98 Mechanical Ventilator 40 02/24/19 18:30 72 24 139/68 (91) 98 02/24/19 18:00 24 Mechanical Ventilator 40 02/24/19 18:00 73 24 126/65 (85) 97 02/24/19 17:30 70 24 119/61 (80) 97 02/24/19 17:28 125/66 02/24/19 17:28 125/66 02/24/19 17:00 70 24 40 02/24/19 17:00 24 Mechanical Ventilator 40 02/24/19 17:00 71 24 120/64 (82) 98 02/24/19 16:30 70 24 126/57 (80) 98 02/24/19 16:00 40 02/24/19 16:00 75 02/24/19 16:00 70 24 126/57 (80) 98 02/24/19 16:00 24 Mechanical Ventilator 40 02/24/19 16:00 Mechanical Ventilator Mechanical Ventilator 02/24/19 15:30 75 24 137/69 (91) 98 02/24/19 15:00 24 Mechanical Ventilator 40 02/24/19 15:00 75 24 120/63 (82) 98 02/24/19 14:54 71 24 100 Mechanical Ventilator 40 02/24/19 14:52 72 26 40 02/24/19 14:50 72 24 100 Mechanical Ventilator 40 02/24/19 14:30 71 24 140/75 (96) 99 02/24/19 14:22 134/70 02/24/19 14:15 24 Mechanical Ventilator 40 02/24/19 14:00 24 Mechanical Ventilator 40 02/24/19 14:00 72 24 134/70 (91) 100 02/24/19 13:30 74 24 129/71 (90) 98 02/24/19 13:00 24 Mechanical Ventilator 40 02/24/19 13:00 68 24 130/71 (90) 97 02/24/19 12:40 118/58 02/24/19 12:35 69 26 40 02/24/19 12:30 65 24 118/58 (78) 98 Intake and Output 02/24/19 02/25/19 19:00 07:00 Intake Total 2406.5 ml 1382.0 ml Output Total 1160 ml 735 ml Balance 1246.5 ml 647.0 ml Free Water 200 ml IV Total 2006.5 ml 1082.0 ml Tube Feeding 180 ml 100 ml Other 20 ml 200 ml Output Urine Total 1160 ml 705 ml Stool Total 30 ml Laboratory Tests 02/25/19 04:40: White Blood Count 6.0, Red Blood Count 3.07L, Hemoglobin 8.8L, Hematocrit 27.5L , Mean Corpuscular Volume 90, Mean Corpuscular Hemoglobin 28.6, Mean Corpuscular Hemoglobin Concent 32.0, Red Cell Distribution Width 17.2H, Platelet Count 193, Mean Platelet Volume 6.2L, Neutrophils (%) (Auto) , Lymphocytes (%) (Auto) , Monocytes (%) (Auto) , Eosinophils (%) (Auto) , Basophils (%) (Auto) , Differential Total Cells Counted 100, Neutrophils % ( Manual) 90H, Lymphocytes % (Manual) 7L, Monocytes % (Manual) 3, Eosinophils % ( Manual) 0, Basophils % (Manual) 0, Band Neutrophils 0, Platelet Estimate Adequate, Platelet Morphology Normal, Anisocytosis 1+, Sodium Level 134L, Potassium Level 5.3H, Chloride Level 100, Carbon Dioxide Level 23, Anion Gap 11 , Blood Urea Nitrogen 66H, Creatinine 2.9H, Estimat Glomerular Filtration Rate 22.4, Glucose Level 75, Calcium Level 8.4L, Phosphorus Level 5.8H, Magnesium Level 2.2, Total Bilirubin 0.4, Direct Bilirubin 0.3, Aspartate Amino Transf ( AST/SGOT) 57H, Alanine Aminotransferase (ALT/SGPT) 59, Alkaline Phosphatase 107 , Total Protein 6.1L, Albumin 2.5L 02/25/19 10:00: Arterial Blood pH 7.249*L, Arterial Blood Partial Pressure CO2 48.0H, Arterial Blood Partial Pressure O2 77.5, Arterial Blood HCO3 20.5L, Arterial Blood Oxygen Saturation 92.6L, Arterial Blood Base Excess -6.5L, Benny Test Positive Height (Feet): 6 Height (Inches): 0.00 Weight (Pounds): 264 EENT: other - vented Cardiovascular: normal rate Respiratory/Chest: decreased breath sounds Abdomen: distended Objective no change Mike Mcdonald MD Feb 25, 2019 12:03
--- NOTE | 2019-02-25 12:30 | NUR ---
NURSE NOTES: Turned and repositioned. On-going Fentanyl 280mcg/hr, RASS -2. No signs of distress.
[2019-02-25] MEDS: Bisacodyl EC 5mg tab ORAL PRN (12:45)
[2019-02-25] MEDS ORDERED: D5 1/2NS 1000ml IV ONE (13:28)
[2019-02-25] MEDS ORDERED: Tubing IV Secondary IV ONE (13:28)
[2019-02-25] MEDS ORDERED: Tubing Blood Filter IV ONE (13:28)
[2019-02-25] MEDS ORDERED: D5NS 1000ml IV ONE (13:28)
[2019-02-25] MEDS ORDERED: NS 275ml ONE ×2 (13:28→13:33)
--- NOTE | 2019-02-25 13:57 | General Progress Note ---
Assessment/Plan Status: stable Assessment/Plan: 58 y Male admitted to the hospital due to fever, shortness of breath and chest pain. # Multilobar pneumonia in patient with HIV - Broad sp atbx started. Continue Zosyn, Vancomycin, Azithromycin, TM-SMX - Fluconazole per ID - Droplet precaution - Flu swab ordered. - Oxygen support, ventilatory support as not able to wean off ventilator due to agitation. Consider change of sedation agent from Fentanyl to Versed if indicated. - ID consult appreciated. Discussed today and monitor renal function as possibly change in creatinine due to TM-SMX # Hypoxemic respiratory failure - Critical care follow up. Unable to wean off the ventilatior. - Possible need for tracheostomy in the future. - Due to pneumonia # Chest pain - EKG with bifascicular block RBB and LAFB, no ST changes. - Trend troponin x3 completed - ECHO completed with no WMA and preserved EF. Dr. Francois consulted. Consideration for outpatient cath vs possibly myocarditis due to underlying viral infection. No evidence of Takotsubo per TTE. - NGT prn - Pain control with morphine # HIV - Continue HARRT - VL is undetectable per patient report. T cell count > 400 - CD 4 count 191 # HTN - Resume home medication - Clonidine, Isordil added today. # [place] hyponatremia - Monitor - good response to NS # CKD 2-3 - Trend renal function - Worsening creatinine to 2.9 today. 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 Gasca for [employer] - D/w Dr. Calabrese who will arrange to dc L femoral access, place PICC in AM and if need be new dialysis catheter will be placed by surgery. DVT and GI ppx Full code Subjective ROS Limited/Unobtainable: Yes Allergies: Coded Allergies: No Known Allergies (Unverified , 02/05/13) Objective Last 24 Hour Vital Signs Date Time Temp Pulse Resp B/P (MAP) Pulse Ox O2 Delivery O2 Flow Rate FiO2 02/25/19 13:10 115/56 02/25/19 13:00 20 Mechanical Ventilator 40 02/25/19 12:52 65 24 40 02/25/19 12:45 115/56 02/25/19 12:00 40 02/25/19 12:00 Mechanical Ventilator Mechanical Ventilator 02/25/19 12:00 Mechanical Ventilator 40 02/25/19 12:00 65 02/25/19 11:00 24 Mechanical Ventilator 40 02/25/19 11:00 65 24 115/56 (75) 100 02/25/19 10:31 67 24 40 02/25/19 10:13 72 26 40 02/25/19 10:00 72 20 131/94 (106) 100 02/25/19 10:00 24 Mechanical Ventilator 40 02/25/19 09:18 99 02/25/19 09:18 75 11 40 02/25/19 09:00 75 20 120/64 (82) 100 02/25/19 09:00 24 Mechanical Ventilator 40 02/25/19 08:57 63 110/65 02/25/19 08:56 63 122/65 02/25/19 08:10 98.2 02/25/19 08:00 74 02/25/19 08:00 40 02/25/19 08:00 96.7 63 20 121/64 (83) 100 02/25/19 08:00 Mechanical Ventilator Mechanical Ventilator 02/25/19 08:00 24 Mechanical Ventilator 40 02/25/19 07:40 24 Mechanical Ventilator 40 02/25/19 07:08 63 24 40 02/25/19 07:00 63 20 122/65 (84) 100 02/25/19 07:00 20 Mechanical Ventilator 40 02/25/19 06:30 69 20 118/56 (76) 99 02/25/19 06:00 20 Mechanical Ventilator 40 02/25/19 06:00 62 20 125/57 (79) 99 02/25/19 05:44 129/67 02/25/19 05:44 129/67 02/25/19 05:43 129/67 02/25/19 05:30 64 20 129/67 (87) 100 02/25/19 05:05 69 24 40 02/25/19 05:00 71 18 143/75 (97) 100 02/25/19 05:00 18 Mechanical Ventilator 40 02/25/19 04:30 67 20 130/74 (92) 100 02/25/19 04:00 40 02/25/19 04:00 18 Mechanical Ventilator 40 02/25/19 04:00 98.2 77 18 103/76 (85) 96 02/25/19 04:00 Mechanical Ventilator Mechanical Ventilator 02/25/19 03:30 70 18 117/61 (79) 100 02/25/19 03:07 69 26 40 02/25/19 03:06 68 02/25/19 03:00 23 Mechanical Ventilator 40 02/25/19 03:00 66 23 120/56 (77) 100 02/25/19 02:30 72 21 120/59 (79) 98 02/25/19 02:00 20 Mechanical Ventilator 40 02/25/19 02:00 71 20 144/64 (90) 98 02/25/19 01:30 68 23 124/67 (86) 97 02/25/19 01:05 66 24 40 02/25/19 01:00 66 24 118/60 (79) 96 02/25/19 01:00 24 Mechanical Ventilator 40 02/25/19 00:30 66 24 113/57 (75) 96 02/25/19 00:00 98.1 67 24 113/57 (75) 96 02/25/19 00:00 24 Mechanical Ventilator 40 02/25/19 00:00 40 02/25/19 00:00 Mechanical Ventilator Mechanical Ventilator 02/24/19 23:40 67 02/24/19 23:38 119/61 02/24/19 23:37 119/61 02/24/19 23:30 67 24 119/61 (80) 96 02/24/19 23:18 65 24 100 Mechanical Ventilator 40 02/24/19 23:08 63 24 100 Mechanical Ventilator 40 02/24/19 23:08 63 24 40 02/24/19 23:00 24 Mechanical Ventilator 40 02/24/19 23:00 64 24 120/61 (80) 96 02/24/19 22:56 21 Mechanical Ventilator 40 02/24/19 22:30 64 24 98/81 (87) 96 02/24/19 22:00 65 22 117/61 (79) 96 02/24/19 22:00 24 Mechanical Ventilator 40 02/24/19 21:31 129/67 02/24/19 21:30 66 24 128/59 (82) 98 02/24/19 21:00 76 20 129/72 (91) 100 02/24/19 21:00 20 Mechanical Ventilator 40 02/24/19 20:56 78 29 40 02/24/19 20:38 77 135/70 02/24/19 20:30 76 20 135/70 (91) 95 02/24/19 20:00 40 02/24/19 20:00 98.2 75 19 135/62 (86) 95 02/24/19 20:00 19 Mechanical Ventilator 40 02/24/19 20:00 Mechanical Ventilator Mechanical Ventilator 02/24/19 19:30 76 20 136/69 (91) 97 02/24/19 19:30 20 Mechanical Ventilator 40 02/24/19 19:28 74 02/24/19 19:00 73 24 129/71 (90) 100 02/24/19 18:58 76 24 100 Mechanical Ventilator 40 02/24/19 18:48 71 25 40 02/24/19 18:48 71 25 98 Mechanical Ventilator 40 02/24/19 18:30 72 24 139/68 (91) 98 02/24/19 18:00 24 Mechanical Ventilator 40 02/24/19 18:00 73 24 126/65 (85) 97 02/24/19 17:30 70 24 119/61 (80) 97 02/24/19 17:28 125/66 02/24/19 17:28 125/66 02/24/19 17:00 70 24 40 02/24/19 17:00 24 Mechanical Ventilator 40 02/24/19 17:00 71 24 120/64 (82) 98 02/24/19 16:30 70 24 126/57 (80) 98 02/24/19 16:00 40 02/24/19 16:00 75 02/24/19 16:00 70 24 126/57 (80) 98 02/24/19 16:00 24 Mechanical Ventilator 40 02/24/19 16:00 Mechanical Ventilator Mechanical Ventilator 02/24/19 15:30 75 24 137/69 (91) 98 02/24/19 15:00 24 Mechanical Ventilator 40 02/24/19 15:00 75 24 120/63 (82) 98 02/24/19 14:54 71 24 100 Mechanical Ventilator 40 02/24/19 14:52 72 26 40 02/24/19 14:50 72 24 100 Mechanical Ventilator 40 02/24/19 14:30 71 24 140/75 (96) 99 02/24/19 14:22 134/70 02/24/19 14:15 24 Mechanical Ventilator 40 02/24/19 14:00 24 Mechanical Ventilator 40 02/24/19 14:00 72 24 134/70 (91) 100 Intake and Output 02/24/19 02/25/19 18:59 06:59 Intake Total 2486.0 ml 1354.5 ml Output Total 1130 ml 785 ml Balance 1356.0 ml 569.5 ml Free Water 200 ml IV Total 2111.0 ml 1054.5 ml Tube Feeding 155 ml 100 ml Other 20 ml 200 ml Output Urine Total 1130 ml 755 ml Stool Total 30 ml Laboratory Tests 02/25/19 04:40: White Blood Count 6.0, Red Blood Count 3.07L, Hemoglobin 8.8L, Hematocrit 27.5L , Mean Corpuscular Volume 90, Mean Corpuscular Hemoglobin 28.6, Mean Corpuscular Hemoglobin Concent 32.0, Red Cell Distribution Width 17.2H, Platelet Count 193, Mean Platelet Volume 6.2L, Neutrophils (%) (Auto) , Lymphocytes (%) (Auto) , Monocytes (%) (Auto) , Eosinophils (%) (Auto) , Basophils (%) (Auto) , Differential Total Cells Counted 100, Neutrophils % ( Manual) 90H, Lymphocytes % (Manual) 7L, Monocytes % (Manual) 3, Eosinophils % ( Manual) 0, Basophils % (Manual) 0, Band Neutrophils 0, Platelet Estimate Adequate, Platelet Morphology Normal, Anisocytosis 1+, Sodium Level 134L, Potassium Level 5.3H, Chloride Level 100, Carbon Dioxide Level 23, Anion Gap 11 , Blood Urea Nitrogen 66H, Creatinine 2.9H, Estimat Glomerular Filtration Rate 22.4, Glucose Level 75, Calcium Level 8.4L, Phosphorus Level 5.8H, Magnesium Level 2.2, Total Bilirubin 0.4, Direct Bilirubin 0.3, Aspartate Amino Transf ( AST/SGOT) 57H, Alanine Aminotransferase (ALT/SGPT) 59, Alkaline Phosphatase 107 , Total Protein 6.1L, Albumin 2.5L 02/25/19 10:00: Arterial Blood pH 7.249*L, Arterial Blood Partial Pressure CO2 48.0H, Arterial Blood Partial Pressure O2 77.5, Arterial Blood HCO3 20.5L, Arterial Blood Oxygen Saturation 92.6L, Arterial Blood Base Excess -6.5L, Benny Test Positive Height (Feet): 6 Height (Inches): 0.00 Weight (Pounds): 264 General Appearance: lethargic EENT: PERRL/EOMI Neck: non-tender Cardiovascular: normal rate, regular rhythm Respiratory/Chest: decreased breath sounds Abdomen: soft Edema: mild edema 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
--- NOTE | 2019-02-25 14:03 | Cardiac Electrophysiology PN ---
Assessment/Plan Assessment/Plan 1. Non-ST elevation myocardial infarction with peak troponin of more than 10, down to 3.[address]-T wave abnormalities. Continue Lipitor, Imdur and metoprolol Hold off on Cardiac catheterization for now 2. Hypertension. Metoprolol 100 bid, Isordil 20 q6 and hydralazine 50 q 8 hr 3. Respiratory failure due to Multilobar Pneumonia. Extubated 02/19/19. Reintubated 02/20/19 Likely needs Tracheostomy 4. Hyperlipidemia. On Lipitor. 5. Human immunodeficiency virus. On anti-retroviral therapy with undetectable viral load. 6. ARF Cr 2.9 7. Bleeding from ETT and NG tube. S/P PRBC. Off Aspirin and Lovenox DW RN and Dr Hawley Subjective Subjective In ICU on the vent and fentanyl drip 280 mcg for severe agitation. RN at bedside Objective Last 24 Hour Vital Signs Date Time Temp Pulse Resp B/P (MAP) Pulse Ox O2 Delivery O2 Flow Rate FiO2 02/25/19 13:10 115/56 02/25/19 13:00 20 Mechanical Ventilator 40 02/25/19 12:52 65 24 40 02/25/19 12:45 115/56 02/25/19 12:00 40 02/25/19 12:00 Mechanical Ventilator Mechanical Ventilator 02/25/19 12:00 Mechanical Ventilator 40 02/25/19 12:00 65 02/25/19 11:00 24 Mechanical Ventilator 40 02/25/19 11:00 65 24 115/56 (75) 100 02/25/19 10:31 67 24 40 02/25/19 10:13 72 26 40 02/25/19 10:00 72 20 131/94 (106) 100 02/25/19 10:00 24 Mechanical Ventilator 40 02/25/19 09:18 99 02/25/19 09:18 75 11 40 02/25/19 09:00 75 20 120/64 (82) 100 02/25/19 09:00 24 Mechanical Ventilator 40 02/25/19 08:57 63 110/65 02/25/19 08:56 63 122/65 02/25/19 08:10 98.2 02/25/19 08:00 74 02/25/19 08:00 40 02/25/19 08:00 96.7 63 20 121/64 (83) 100 02/25/19 08:00 Mechanical Ventilator Mechanical Ventilator 02/25/19 08:00 24 Mechanical Ventilator 40 02/25/19 07:40 24 Mechanical Ventilator 40 02/25/19 07:08 63 24 40 02/25/19 07:00 63 20 122/65 (84) 100 02/25/19 07:00 20 Mechanical Ventilator 40 02/25/19 06:30 69 20 118/56 (76) 99 02/25/19 06:00 20 Mechanical Ventilator 40 02/25/19 06:00 62 20 125/57 (79) 99 02/25/19 05:44 129/67 02/25/19 05:44 129/67 02/25/19 05:43 129/67 02/25/19 05:30 64 20 129/67 (87) 100 02/25/19 05:05 69 24 40 02/25/19 05:00 71 18 143/75 (97) 100 02/25/19 05:00 18 Mechanical Ventilator 40 02/25/19 04:30 67 20 130/74 (92) 100 02/25/19 04:00 40 02/25/19 04:00 18 Mechanical Ventilator 40 02/25/19 04:00 98.2 77 18 103/76 (85) 96 02/25/19 04:00 Mechanical Ventilator Mechanical Ventilator 02/25/19 03:30 70 18 117/61 (79) 100 02/25/19 03:07 69 26 40 02/25/19 03:06 68 02/25/19 03:00 23 Mechanical Ventilator 40 02/25/19 03:00 66 23 120/56 (77) 100 02/25/19 02:30 72 21 120/59 (79) 98 02/25/19 02:00 20 Mechanical Ventilator 40 02/25/19 02:00 71 20 144/64 (90) 98 02/25/19 01:30 68 23 124/67 (86) 97 02/25/19 01:05 66 24 40 02/25/19 01:00 66 24 118/60 (79) 96 02/25/19 01:00 24 Mechanical Ventilator 40 02/25/19 00:30 66 24 113/57 (75) 96 02/25/19 00:00 98.1 67 24 113/57 (75) 96 02/25/19 00:00 24 Mechanical Ventilator 40 02/25/19 00:00 40 02/25/19 00:00 Mechanical Ventilator Mechanical Ventilator 02/24/19 23:40 67 02/24/19 23:38 119/61 02/24/19 23:37 119/61 02/24/19 23:30 67 24 119/61 (80) 96 02/24/19 23:18 65 24 100 Mechanical Ventilator 40 02/24/19 23:08 63 24 100 Mechanical Ventilator 40 02/24/19 23:08 63 24 40 02/24/19 23:00 24 Mechanical Ventilator 40 02/24/19 23:00 64 24 120/61 (80) 96 02/24/19 22:56 21 Mechanical Ventilator 40 02/24/19 22:30 64 24 98/81 (87) 96 02/24/19 22:00 65 22 117/61 (79) 96 02/24/19 22:00 24 Mechanical Ventilator 40 02/24/19 21:31 129/67 02/24/19 21:30 66 24 128/59 (82) 98 02/24/19 21:00 76 20 129/72 (91) 100 02/24/19 21:00 20 Mechanical Ventilator 40 02/24/19 20:56 78 29 40 02/24/19 20:38 77 135/70 02/24/19 20:30 76 20 135/70 (91) 95 02/24/19 20:00 40 02/24/19 20:00 98.2 75 19 135/62 (86) 95 02/24/19 20:00 19 Mechanical Ventilator 40 02/24/19 20:00 Mechanical Ventilator Mechanical Ventilator 02/24/19 19:30 76 20 136/69 (91) 97 02/24/19 19:30 20 Mechanical Ventilator 40 02/24/19 19:28 74 02/24/19 19:00 73 24 129/71 (90) 100 02/24/19 18:58 76 24 100 Mechanical Ventilator 40 02/24/19 18:48 71 25 40 02/24/19 18:48 71 25 98 Mechanical Ventilator 40 02/24/19 18:30 72 24 139/68 (91) 98 02/24/19 18:00 24 Mechanical Ventilator 40 02/24/19 18:00 73 24 126/65 (85) 97 02/24/19 17:30 70 24 119/61 (80) 97 02/24/19 17:28 125/66 02/24/19 17:28 125/66 02/24/19 17:00 70 24 40 02/24/19 17:00 24 Mechanical Ventilator 40 02/24/19 17:00 71 24 120/64 (82) 98 02/24/19 16:30 70 24 126/57 (80) 98 02/24/19 16:00 40 02/24/19 16:00 75 02/24/19 16:00 70 24 126/57 (80) 98 02/24/19 16:00 24 Mechanical Ventilator 40 02/24/19 16:00 Mechanical Ventilator Mechanical Ventilator 02/24/19 15:30 75 24 137/69 (91) 98 02/24/19 15:00 24 Mechanical Ventilator 40 02/24/19 15:00 75 24 120/63 (82) 98 02/24/19 14:54 71 24 100 Mechanical Ventilator 40 02/24/19 14:52 72 26 40 02/24/19 14:50 72 24 100 Mechanical Ventilator 40 02/24/19 14:30 71 24 140/75 (96) 99 02/24/19 14:22 134/70 02/24/19 14:15 24 Mechanical Ventilator 40 Intake and Output 02/24/19 02/25/19 18:59 06:59 Intake Total 2486.0 ml 1354.5 ml Output Total 1130 ml 785 ml Balance 1356.0 ml 569.5 ml Free Water 200 ml IV Total 2111.0 ml 1054.5 ml Tube Feeding 155 ml 100 ml Other 20 ml 200 ml Output Urine Total 1130 ml 755 ml Stool Total 30 ml Laboratory Tests Test 02/25/19 04:40 02/25/19 10:00 White Blood Count 6.0 K/UL (4.8-10.8) Red Blood Count 3.07 M/UL (4.70-6.10) L Hemoglobin 8.8 G/DL (14.2-18.0) L Hematocrit 27.5 % (42.0-52.0) L Mean Corpuscular Volume 90 FL (80-99) Mean Corpuscular Hemoglobin 28.6 PG (27.0-31.0) Mean Corpuscular Hemoglobin Concent 32.0 G/DL (32.0-36.0) Red Cell Distribution Width 17.2 % (11.6-14.8) H Platelet Count 193 K/UL (150-450) Mean Platelet Volume 6.2 FL (6.5-10.1) L Neutrophils (%) (Auto) % (45.0-75.0) Lymphocytes (%) (Auto) % (20.0-45.0) Monocytes (%) (Auto) % (1.0-10.0) Eosinophils (%) (Auto) % (0.0-3.0) Basophils (%) (Auto) % (0.0-2.0) Differential Total Cells Counted 100 Neutrophils % (Manual) 90 % (45-75) H Lymphocytes % (Manual) 7 % (20-45) L Monocytes % (Manual) 3 % (1-10) Eosinophils % (Manual) 0 % (0-3) Basophils % (Manual) 0 % (0-2) Band Neutrophils 0 % (0-8) Platelet Estimate Adequate Platelet Morphology Normal Anisocytosis 1+ Sodium Level 134 MMOL/L (136-145) L Potassium Level 5.3 MMOL/L (3.5-5.1) H Chloride Level 100 MMOL/L (98-107) Carbon Dioxide Level 23 MMOL/L (21-32) Anion Gap 11 mmol/L (5-15) Blood Urea Nitrogen 66 mg/dL (7-18) H Creatinine 2.9 MG/DL (0.55-1.30) H Estimat Glomerular Filtration Rate 22.4 mL/min (>60) Glucose Level 75 MG/DL (74-106) Calcium Level 8.4 MG/DL (8.5-10.1) L Phosphorus Level 5.8 MG/DL (2.5-4.9) H Magnesium Level 2.2 MG/DL (1.8-2.4) Total Bilirubin 0.4 MG/DL (0.2-1.0) Direct Bilirubin 0.3 MG/DL (0.0-0.3) Aspartate Amino Transf (AST/SGOT) 57 U/L (15-37) H Alanine Aminotransferase (ALT/SGPT) 59 U/L (12-78) Alkaline Phosphatase 107 U/L (46-116) Total Protein 6.1 G/DL (6.4-8.2) L Albumin 2.5 G/DL (3.4-5.0) L Arterial Blood pH 7.249 (7.350-7.450) Arterial Blood Partial Pressure CO2 48.0 mmHg (35.0-45.0) H Arterial Blood Partial Pressure O2 77.5 mmHg (75.0-100.0) Arterial Blood HCO3 20.5 mmol/L (22.0-26.0) L Arterial Blood Oxygen Saturation 92.6 % (95-100) L Arterial Blood Base Excess -6.5 (-2-2) L Benny Test Positive Objective HEAD AND NECK: No JVD.Orally intubated with NG tube LUNGS: Coarse rhonchi. CARDIOVASCULAR: Regular S1 and S2 with no gallop or murmur. ABDOMEN: Soft. EXTREMITIES: 1 plus pitting edema. Murray Francois MD Feb 25, 2019 14:03
--- NOTE | 2019-02-25 14:30 | NUR ---
NURSE NOTES: Turned and repositioned. Kept dry and clean. Oral care given.
--- NOTE | 2019-02-25 14:34 | Surgery Progress Note ---
Surgery Progress Note Subjective Procedure Performed left femoral temporary Hemodialysis catheter insertion Additional Comments ill appearing in ICU renal function declining on vent support unable to wean will need picc line may need trach Objective Last 24 Hour Vital Signs Date Time Temp Pulse Resp B/P (MAP) Pulse Ox O2 Delivery O2 Flow Rate FiO2 02/25/19 13:10 115/56 02/25/19 13:00 20 Mechanical Ventilator 40 02/25/19 12:52 65 24 40 02/25/19 12:45 115/56 02/25/19 12:00 40 02/25/19 12:00 Mechanical Ventilator Mechanical Ventilator 02/25/19 12:00 Mechanical Ventilator 40 02/25/19 12:00 65 02/25/19 11:00 24 Mechanical Ventilator 40 02/25/19 11:00 65 24 115/56 (75) 100 02/25/19 10:31 67 24 40 02/25/19 10:13 72 26 40 02/25/19 10:00 72 20 131/94 (106) 100 02/25/19 10:00 24 Mechanical Ventilator 40 02/25/19 09:18 99 02/25/19 09:18 75 11 40 02/25/19 09:00 75 20 120/64 (82) 100 02/25/19 09:00 24 Mechanical Ventilator 40 02/25/19 08:57 63 110/65 02/25/19 08:56 63 122/65 02/25/19 08:10 98.2 02/25/19 08:00 74 02/25/19 08:00 40 02/25/19 08:00 96.7 63 20 121/64 (83) 100 02/25/19 08:00 Mechanical Ventilator Mechanical Ventilator 02/25/19 08:00 24 Mechanical Ventilator 40 02/25/19 07:40 24 Mechanical Ventilator 40 02/25/19 07:08 63 24 40 02/25/19 07:00 63 20 122/65 (84) 100 02/25/19 07:00 20 Mechanical Ventilator 40 02/25/19 06:30 69 20 118/56 (76) 99 02/25/19 06:00 20 Mechanical Ventilator 40 02/25/19 06:00 62 20 125/57 (79) 99 02/25/19 05:44 129/67 02/25/19 05:44 129/67 02/25/19 05:43 129/67 02/25/19 05:30 64 20 129/67 (87) 100 02/25/19 05:05 69 24 40 02/25/19 05:00 71 18 143/75 (97) 100 02/25/19 05:00 18 Mechanical Ventilator 40 02/25/19 04:30 67 20 130/74 (92) 100 02/25/19 04:00 40 02/25/19 04:00 18 Mechanical Ventilator 40 02/25/19 04:00 98.2 77 18 103/76 (85) 96 02/25/19 04:00 Mechanical Ventilator Mechanical Ventilator 02/25/19 03:30 70 18 117/61 (79) 100 02/25/19 03:07 69 26 40 02/25/19 03:06 68 02/25/19 03:00 23 Mechanical Ventilator 40 02/25/19 03:00 66 23 120/56 (77) 100 02/25/19 02:30 72 21 120/59 (79) 98 02/25/19 02:00 20 Mechanical Ventilator 40 02/25/19 02:00 71 20 144/64 (90) 98 02/25/19 01:30 68 23 124/67 (86) 97 02/25/19 01:05 66 24 40 02/25/19 01:00 66 24 118/60 (79) 96 02/25/19 01:00 24 Mechanical Ventilator 40 02/25/19 00:30 66 24 113/57 (75) 96 02/25/19 00:00 98.1 67 24 113/57 (75) 96 02/25/19 00:00 24 Mechanical Ventilator 40 02/25/19 00:00 40 02/25/19 00:00 Mechanical Ventilator Mechanical Ventilator 02/24/19 23:40 67 02/24/19 23:38 119/61 02/24/19 23:37 119/61 02/24/19 23:30 67 24 119/61 (80) 96 02/24/19 23:18 65 24 100 Mechanical Ventilator 40 02/24/19 23:08 63 24 100 Mechanical Ventilator 40 02/24/19 23:08 63 24 40 02/24/19 23:00 24 Mechanical Ventilator 40 02/24/19 23:00 64 24 120/61 (80) 96 02/24/19 22:56 21 Mechanical Ventilator 40 02/24/19 22:30 64 24 98/81 (87) 96 02/24/19 22:00 65 22 117/61 (79) 96 02/24/19 22:00 24 Mechanical Ventilator 40 02/24/19 21:31 129/67 02/24/19 21:30 66 24 128/59 (82) 98 02/24/19 21:00 76 20 129/72 (91) 100 02/24/19 21:00 20 Mechanical Ventilator 40 02/24/19 20:56 78 29 40 02/24/19 20:38 77 135/70 02/24/19 20:30 76 20 135/70 (91) 95 02/24/19 20:00 40 02/24/19 20:00 98.2 75 19 135/62 (86) 95 02/24/19 20:00 19 Mechanical Ventilator 40 02/24/19 20:00 Mechanical Ventilator Mechanical Ventilator 02/24/19 19:30 76 20 136/69 (91) 97 02/24/19 19:30 20 Mechanical Ventilator 40 02/24/19 19:28 74 02/24/19 19:00 73 24 129/71 (90) 100 02/24/19 18:58 76 24 100 Mechanical Ventilator 40 02/24/19 18:48 71 25 40 02/24/19 18:48 71 25 98 Mechanical Ventilator 40 02/24/19 18:30 72 24 139/68 (91) 98 02/24/19 18:00 24 Mechanical Ventilator 40 02/24/19 18:00 73 24 126/65 (85) 97 02/24/19 17:30 70 24 119/61 (80) 97 02/24/19 17:28 125/66 02/24/19 17:28 125/66 02/24/19 17:00 70 24 40 02/24/19 17:00 24 Mechanical Ventilator 40 02/24/19 17:00 71 24 120/64 (82) 98 02/24/19 16:30 70 24 126/57 (80) 98 02/24/19 16:00 40 02/24/19 16:00 75 02/24/19 16:00 70 24 126/57 (80) 98 02/24/19 16:00 24 Mechanical Ventilator 40 02/24/19 16:00 Mechanical Ventilator Mechanical Ventilator 02/24/19 15:30 75 24 137/69 (91) 98 02/24/19 15:00 24 Mechanical Ventilator 40 02/24/19 15:00 75 24 120/63 (82) 98 02/24/19 14:54 71 24 100 Mechanical Ventilator 40 02/24/19 14:52 72 26 40 02/24/19 14:50 72 24 100 Mechanical Ventilator 40 I&O Intake and Output 02/24/19 02/25/19 19:00 07:00 Intake Total 2406.5 ml 1382.0 ml Output Total 1160 ml 735 ml Balance 1246.5 ml 647.0 ml Free Water 200 ml IV Total 2006.5 ml 1082.0 ml Tube Feeding 180 ml 100 ml Other 20 ml 200 ml Output Urine Total 1160 ml 705 ml Stool Total 30 ml Laboratory Tests Test 02/25/19 04:40 02/25/19 10:00 White Blood Count 6.0 K/UL (4.8-10.8) Red Blood Count 3.07 M/UL (4.70-6.10) L Hemoglobin 8.8 G/DL (14.2-18.0) L Hematocrit 27.5 % (42.0-52.0) L Mean Corpuscular Volume 90 FL (80-99) Mean Corpuscular Hemoglobin 28.6 PG (27.0-31.0) Mean Corpuscular Hemoglobin Concent 32.0 G/DL (32.0-36.0) Red Cell Distribution Width 17.2 % (11.6-14.8) H Platelet Count 193 K/UL (150-450) Mean Platelet Volume 6.2 FL (6.5-10.1) L Neutrophils (%) (Auto) % (45.0-75.0) Lymphocytes (%) (Auto) % (20.0-45.0) Monocytes (%) (Auto) % (1.0-10.0) Eosinophils (%) (Auto) % (0.0-3.0) Basophils (%) (Auto) % (0.0-2.0) Differential Total Cells Counted 100 Neutrophils % (Manual) 90 % (45-75) H Lymphocytes % (Manual) 7 % (20-45) L Monocytes % (Manual) 3 % (1-10) Eosinophils % (Manual) 0 % (0-3) Basophils % (Manual) 0 % (0-2) Band Neutrophils 0 % (0-8) Platelet Estimate Adequate Platelet Morphology Normal Anisocytosis 1+ Sodium Level 134 MMOL/L (136-145) L Potassium Level 5.3 MMOL/L (3.5-5.1) H Chloride Level 100 MMOL/L (98-107) Carbon Dioxide Level 23 MMOL/L (21-32) Anion Gap 11 mmol/L (5-15) Blood Urea Nitrogen 66 mg/dL (7-18) H Creatinine 2.9 MG/DL (0.55-1.30) H Estimat Glomerular Filtration Rate 22.4 mL/min (>60) Glucose Level 75 MG/DL (74-106) Calcium Level 8.4 MG/DL (8.5-10.1) L Phosphorus Level 5.8 MG/DL (2.5-4.9) H Magnesium Level 2.2 MG/DL (1.8-2.4) Total Bilirubin 0.4 MG/DL (0.2-1.0) Direct Bilirubin 0.3 MG/DL (0.0-0.3) Aspartate Amino Transf (AST/SGOT) 57 U/L (15-37) H Alanine Aminotransferase (ALT/SGPT) 59 U/L (12-78) Alkaline Phosphatase 107 U/L (46-116) Total Protein 6.1 G/DL (6.4-8.2) L Albumin 2.5 G/DL (3.4-5.0) L Arterial Blood pH 7.249 (7.350-7.450) Arterial Blood Partial Pressure CO2 48.0 mmHg (35.0-45.0) H Arterial Blood Partial Pressure O2 77.5 mmHg (75.0-100.0) Arterial Blood HCO3 20.5 mmol/L (22.0-26.0) L Arterial Blood Oxygen Saturation 92.6 % (95-100) L Arterial Blood Base Excess -6.5 (-2-2) L Benny Test Positive Plan Problems: (1) Hypoxia Assessment & Plan: Extensive bilateral upper lobe infiltrates likely inflammatory/infectious. Correlate clinically. Tuberculosis is not excludable. Bilateral pleural effusions. Endotracheal tube and nasogastric tube in good position Atherosclerotic vascular disease (2) Respiratory distress Assessment & Plan: intubated on vent support may require trach given failed initial extubation and now difficult to wean (3) Sepsis Assessment & Plan: Sepsis with tachycardia, leukocytosis - resolved, abnormal labs, respiratory distress on vent support via ET tube Cont IV abx CXR noted appreciate ICU team care abnormal lft's US noted will likely remove line soon now that improving will cont to follow with recs trend labs Rx as written plan to place PICC tomorrow plan to remove temp HD line after may need trach Moiz Costa Feb 25, 2019 14:34
[2019-02-25] MEDS ORDERED: Lidocaine 1% Plain 30 ml INJ PRN (14:45)
[2019-02-25] MEDS ORDERED: Heparin1,000 units/500ml Premix(Conc:2 units/ml) IV PRN (14:45)
--- NOTE | 2019-02-25 16:30 | NUR ---
NURSE NOTES: Blood sugar 112 mg/dl, 3 units given per sliding scale. patient tolerating TF well, residual 15ml, HOB 35 degrees.
--- NOTE | 2019-02-25 18:41 | Pulmonolgy Critical Care Note ---
Critical Care - Asmt/Plan Assessment/Plan: Pulmonary CCM Progress Note Critical Care - Asmt/Plan Problems: (1) Endotracheally intubated (2) Acute hypoxemic respiratory failure - did not tolerate weaning today (3) Pneumonia - PCP DFA negative (4) NSTEMI (non-ST elevated myocardial infarction) (5) AIDS (6) HIV disease (7) Hypertension (8) MDD (major depressive disorder), recurrent episode, moderate (9) Anemia (10) CKD (chronic kidney disease) (11) History of stroke (12) Diabetes (13) Anxiety (14) Malignant hypertension Assessment/Plan: VDRF - wean as tolerated ARDS Acute respiratory failure Bilateral pulmonary infiltrates, ? multilobar CAP vs atypical infection vs other - PJP DFA negative, viral studies negative, sputum culture AIDS (CD4 191) NSTEMI H/O prior CVA HTN HL DM with uncontrolled BS ISH on CKD Anemia PLAN: Change vent settings AC 30 TV 600 PEEP 5, titrate FiO2 to keep SaO2 >92% SBT as able RTC and PRN HHN's Continue Abx per ID (Zosyn, Vanco, TMP-SMX) + flucon per ID F/U Cx's and BAL studies Continue SM 20 IV BID Monitor volumes and renal function, F/U renal recs F/U cards recs DVT Px: LMWH F/U ENDO recs ICU sedation: Fent/Versed FC D/W RN Disposition: keep in ICU Time Spent (Minutes): 40 Notes Reviewed: 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 instructional 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, 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, renal, ID, GI Discussed with: nurses, consultants Critical Care - Objective Vital Signs Noted Status: sedated Condition: critical HEENT: atraumatic, normocephalic, other - ETT OGT Lungs: rales Heart: HR/BP stable Abdomen: soft, non-tender, active bowel sounds Extremities: edema - 2+ Blood Sugars: BS not controlled Critical Care - Subjective ROS Limited/Unobtainable: Yes ICU Day: 13 Intubation Day: 11 Interval Events: Failed SBT Condition: critical IV Access: central, peripheral EKG Rhythm: Sinus Rhythm FI02: 100 Vent Support Breath Rate: 24 Vent Support Mode: AC Vent Tidal Volume: 500 Sputum Amount: Scant PEEP: 5.0 PIP: 37 Fluids: D5W Drips: Versed, Fent Tube Feeding Amount: 50 Subjective: Sedated on fent/versed ET-Tube: 7.5 ET Position: 25 Labs: Laboratory Tests Test 02/16/19 03:30 02/16/19 05:05 02/16/19 08:08 Stool Occult Blood Pending White Blood Count 7.8 K/UL (4.8-10.8) # Red Blood Count 3.26 M/UL (4.70-6.10) L Hemoglobin 8.9 G/DL (14.2-18.0) L Hematocrit 27.8 % (42.0-52.0) L Mean Corpuscular Volume 85 FL (80-99) Mean Corpuscular Hemoglobin 27.5 PG (27.0-31.0) Mean Corpuscular Hemoglobin Concent 32.1 G/DL (32.0-36.0) Red Cell Distribution Width 18.1 % (11.6-14.8) H Platelet Count 253 K/UL (150-450) Mean Platelet Volume 6.4 FL (6.5-10.1) L Neutrophils (%) (Auto) % (45.0-75.0) Lymphocytes (%) (Auto) % (20.0-45.0) Monocytes (%) (Auto) % (1.0-10.0) Eosinophils (%) (Auto) % (0.0-3.0) Basophils (%) (Auto) % (0.0-2.0) Sodium Level 148 MMOL/L (136-145) H Potassium Level 5.8 MMOL/L (3.5-5.1) H Chloride Level 114 MMOL/L (98-107) H Carbon Dioxide Level 28 MMOL/L (21-32) Anion Gap 6 mmol/L (5-15) Blood Urea Nitrogen 71 mg/dL (7-18) H Creatinine 2.6 MG/DL (0.55-1.30) H Estimat Glomerular Filtration Rate 25.4 mL/min (>60) Glucose Level 269 MG/DL (74-106) H Uric Acid 4.8 MG/DL (2.6-7.2) Calcium Level 7.8 MG/DL (8.5-10.1) L Phosphorus Level 4.6 MG/DL (2.5-4.9) Magnesium Level 2.9 MG/DL (1.8-2.4) H Total Bilirubin 0.2 MG/DL (0.2-1.0) Aspartate Amino Transf (AST/SGOT) 32 U/L (15-37) Alanine Aminotransferase (ALT/SGPT) 51 U/L (12-78) Alkaline Phosphatase 157 U/L (46-116) H C-Reactive Protein, Quantitative 2.2 mg/dL (0.00-0.90) H Pro-B-Type Natriuretic Peptide 5575 pg/mL (0-125) H Total Protein 5.7 G/DL (6.4-8.2) L Albumin 2.0 G/DL (3.4-5.0) L Globulin 3.7 g/dL Albumin/Globulin Ratio 0.5 (1.0-2.7) L Random Vancomycin Level 11.4 ug/mL Arterial Blood pH 7.244 (7.350-7.450) Arterial Blood Partial Pressure CO2 59.1 mmHg (35.0-45.0) *H Arterial Blood Partial Pressure O2 63.4 mmHg (75.0-100.0) L Arterial Blood HCO3 25.0 mmol/L (22.0-26.0) Arterial Blood Oxygen Saturation 87.0 % (95-100) *L Arterial Blood Base Excess -3.0 (-2-2) L Benny Test Positive Critical Care - Objective Last 24 Hour Vital Signs Date Time Temp Pulse Resp B/P (MAP) Pulse Ox O2 Delivery O2 Flow Rate FiO2 02/25/19 18:00 24 Mechanical Ventilator 40 02/25/19 17:11 110/55 02/25/19 17:00 Mechanical Ventilator 40 02/25/19 16:35 71 27 40 02/25/19 16:00 62 02/25/19 16:00 Mechanical Ventilator Mechanical Ventilator 02/25/19 16:00 24 Mechanical Ventilator 40 02/25/19 16:00 40 02/25/19 15:00 Mechanical Ventilator 40 02/25/19 15:00 61 24 110/55 (73) 100 02/25/19 14:55 61 24 40 02/25/19 14:00 68 24 113/64 (80) 100 02/25/19 14:00 Mechanical Ventilator 40 02/25/19 13:10 115/56 02/25/19 13:00 66 24 113/76 (88) 100 02/25/19 13:00 20 Mechanical Ventilator 40 02/25/19 12:52 65 24 40 02/25/19 12:45 115/56 02/25/19 12:00 40 02/25/19 12:00 Mechanical Ventilator Mechanical Ventilator 02/25/19 12:00 96.8 65 24 114/63 (80) 100 02/25/19 12:00 Mechanical Ventilator 40 02/25/19 12:00 65 02/25/19 11:00 24 Mechanical Ventilator 40 02/25/19 11:00 65 24 115/56 (75) 100 02/25/19 10:31 67 24 40 02/25/19 10:13 72 26 40 02/25/19 10:00 72 20 131/94 (106) 100 02/25/19 10:00 24 Mechanical Ventilator 40 02/25/19 09:18 99 02/25/19 09:18 75 11 40 02/25/19 09:00 75 20 120/64 (82) 100 02/25/19 09:00 24 Mechanical Ventilator 40 02/25/19 08:57 63 110/65 02/25/19 08:56 63 122/65 02/25/19 08:10 98.2 02/25/19 08:00 74 02/25/19 08:00 40 02/25/19 08:00 96.7 63 20 121/64 (83) 100 02/25/19 08:00 Mechanical Ventilator Mechanical Ventilator 02/25/19 08:00 24 Mechanical Ventilator 40 02/25/19 07:40 24 Mechanical Ventilator 40 02/25/19 07:08 63 24 40 02/25/19 07:00 63 20 122/65 (84) 100 02/25/19 07:00 20 Mechanical Ventilator 40 02/25/19 06:30 69 20 118/56 (76) 99 02/25/19 06:00 20 Mechanical Ventilator 40 02/25/19 06:00 62 20 125/57 (79) 99 02/25/19 05:44 129/67 02/25/19 05:44 129/67 02/25/19 05:43 129/67 02/25/19 05:30 64 20 129/67 (87) 100 02/25/19 05:05 69 24 40 02/25/19 05:00 71 18 143/75 (97) 100 02/25/19 05:00 18 Mechanical Ventilator 40 02/25/19 04:30 67 20 130/74 (92) 100 02/25/19 04:00 40 02/25/19 04:00 18 Mechanical Ventilator 40 02/25/19 04:00 98.2 77 18 103/76 (85) 96 02/25/19 04:00 Mechanical Ventilator Mechanical Ventilator 02/25/19 03:30 70 18 117/61 (79) 100 02/25/19 03:07 69 26 40 02/25/19 03:06 68 02/25/19 03:00 23 Mechanical Ventilator 40 02/25/19 03:00 66 23 120/56 (77) 100 02/25/19 02:30 72 21 120/59 (79) 98 02/25/19 02:00 20 Mechanical Ventilator 40 02/25/19 02:00 71 20 144/64 (90) 98 02/25/19 01:30 68 23 124/67 (86) 97 02/25/19 01:05 66 24 40 02/25/19 01:00 66 24 118/60 (79) 96 02/25/19 01:00 24 Mechanical Ventilator 40 02/25/19 00:30 66 24 113/57 (75) 96 02/25/19 00:00 98.1 67 24 113/57 (75) 96 02/25/19 00:00 24 Mechanical Ventilator 40 02/25/19 00:00 40 02/25/19 00:00 Mechanical Ventilator Mechanical Ventilator 02/24/19 23:40 67 02/24/19 23:38 119/61 02/24/19 23:37 119/61 02/24/19 23:30 67 24 119/61 (80) 96 02/24/19 23:18 65 24 100 Mechanical Ventilator 40 02/24/19 23:08 63 24 100 Mechanical Ventilator 40 02/24/19 23:08 63 24 40 02/24/19 23:00 24 Mechanical Ventilator 40 02/24/19 23:00 64 24 120/61 (80) 96 02/24/19 22:56 21 Mechanical Ventilator 40 02/24/19 22:30 64 24 98/81 (87) 96 02/24/19 22:00 65 22 117/61 (79) 96 02/24/19 22:00 24 Mechanical Ventilator 40 02/24/19 21:31 129/67 02/24/19 21:30 66 24 128/59 (82) 98 02/24/19 21:00 76 20 129/72 (91) 100 02/24/19 21:00 20 Mechanical Ventilator 40 02/24/19 20:56 78 29 40 02/24/19 20:38 77 135/70 02/24/19 20:30 76 20 135/70 (91) 95 02/24/19 20:00 40 02/24/19 20:00 98.2 75 19 135/62 (86) 95 02/24/19 20:00 19 Mechanical Ventilator 40 02/24/19 20:00 Mechanical Ventilator Mechanical Ventilator 02/24/19 19:30 76 20 136/69 (91) 97 02/24/19 19:30 20 Mechanical Ventilator 40 02/24/19 19:28 74 02/24/19 19:00 73 24 129/71 (90) 100 02/24/19 18:58 76 24 100 Mechanical Ventilator 40 02/24/19 18:48 71 25 40 02/24/19 18:48 71 25 98 Mechanical Ventilator 40 Accucheck: 112 Critical Care - Subjective ROS Limited/Unobtainable: No FI02: 40 Vent Support Breath Rate: 24 Vent Support Mode: AC Vent Tidal Volume: 550 Sputum Amount: Small PEEP: 5.0 PIP: 32 Tube Feeding Amount: 35 I&O: Intake and Output 02/24/19 02/25/19 18:59 06:59 Intake Total 2486.0 ml 1354.5 ml Output Total 1130 ml 785 ml Balance 1356.0 ml 569.5 ml Free Water 200 ml IV Total 2111.0 ml 1054.5 ml Tube Feeding 155 ml 100 ml Other 20 ml 200 ml Output Urine Total 1130 ml 755 ml Stool Total 30 ml ET-Tube: 7.5 ET Position: 24 Salty Yan MD Feb 25, 2019 18:41
--- NOTE | 2019-02-25 19:28 | NUR ---
HAND-OFF: Report given to TESSA Ewing using [employer].
--- NOTE | 2019-02-25 19:30 | NUR ---
NURSE NOTES: Received report from TESSA Arciniega. Patient is on Fentanyl drip @250mcg/hr with RASS -2. No acute distress/SOB noted. ETT 7.5/24cm at lip line with vent setting AC 24, TV 550, Peep 5 and FiO2 40%. Left NG tube intact and running with Glucerna 1.2 35ml/hr. Rectal tube intact and draining. Simon intact and draining with dark scott color urine. SCD is not on due to swollen legs. Still on bilateral soft wrist restraints. Call light placed in easy reach. Will continue plan of care.
--- NOTE | 2019-02-25 20:00 | NUR ---
NURSE NOTES: Patient is restless. Increased fentanyl drip to 250mcg/hr.
[2019-02-25] MEDS: Miralax 17gm pkt ORAL SCH (20:56)
[2019-02-25] MEDS: Dyna-Hex 2% Top Sol 2oz TOPIC SCH (20:56)
[2019-02-25] MEDS: Maxitrol Opth Oint 3.5gm BOTH EYES SCH (20:56)
--- NOTE | 2019-02-25 21:00 | NUR ---
NURSE NOTES: Patient still restless. Increased fentanyl drip to 300mcg/hr.
--- NOTE | 2019-02-25 21:11 | NUR ---
NURSE NOTES: Patient is still restless. Ativan 2mg IVP given as ordered.
--- NOTE | 2019-02-25 21:19 | Hematology/Onc Progress Note ---
Assessment/Plan Assessment/Plan # Anemia of chronic disease due to underlying chronic medical issues, multifactorial --> Anemia workup has been reviewed. Ferritin 182 --> No evidence of hemolysis is noted, peripheral smear has been reviewed. --> Hgb goal >7. Transfuse prn. --> Epogen or iron at this time is not particularly indicated --> Medications have been reviewed --> Stool OB negative --> bone marrow biopsy is not indicated given the other more likely causes --> Blood tx: 1 unit on 02/10/19, 02/22/2019 --> Hgb trend: 7.6-->8.2-->9.4-->8.4-->8.2 -->8.9-->10.3->7.9-->8.1->7.8--> 9.2- -> 9.0 # Thrombocytopenia - potential causes multifactorial, likely related to HIV status --> Hep panel pending and HIV confirmed positive --> US abd to evaluate for cirrhosis hows hepatosplenomegaly --> Peripheral smear ordered to evaluate for blasts /schistocytes does not show any --> abx and other meds have been reviewed --> ok for ppx if plt >50k w/ either heparin or lovenox --> Transfuse if Plt < 20k and fever, or if Plt < 10k without fever --> Plt trend: 153-->257-->224-->205-->253-->310-->201--> 202 --> WILLIAM screen negative # Multilobar pneumonia in patient with HIV. Recs per ID. --> Broad sp atbx started. Continue Zosyn, Vancomycin and Azithromycin --> Droplet precaution # Hypoxemic respiratory failure. Pulm is following, appreciate recs. --> Bipap as needed, transition to O2 via NC when able --> Due to pneumonia, on abx --> now intubated 02/20 # Chest pain. 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 --> Trend troponin x3 --> NGT prn # HIV. --> Continue HARRT --> VL is undetectable per patient report. # HTN --> Resume home medication # DVT and GI ppx The time the note is entered does not reflect the time the patient was examined. I greatly appreciate the consultation. Subjective Allergies: Coded Allergies: No Known Allergies (Unverified , 02/05/13) Subjective Subjective 02/11: Hgb yesterday was 7.6, s/p 1 unit prbc. Current hgb at 8.2. Pt attempted to pull out tubes per nursing team, soft restraints applied. 02/13: Pt in ICU and intubated. Pt currently sedated. Current hgb 9.4. 02/14: Pt remains in icu, sedated. Hgb stable. 02/15: Remains in icu, lethargic. No acute events. Hgb stable. 02/16: Remains in icu. CXR today shows worsening CHF/pulmonary edema. Pt wake and sedation decrease for weaning. 02/18: Remains in icu. Pt on vent. CXR today shows pulmonary edema, persistent small left pleural effusion. 02/19: Remains in the icu, now extubated, seen by pulm, labs reviewed 02/20: Remains in ICU, Pt intubated, CXR today shows Congestive heart failure with interval worsening 02/21: reintubated, tolerating vent well, seen by pulm/cc 02/23: pt remains on fently gtt, prn ativan, currenlty intubated on vent, no further bleeding, d/w RN> 02/24:failed weaning, fentanyl drip decreased. 02/25:pt seen in am,sedated. Objective Objective Current Medications Medications (Trade) Dose Ordered Sig/Marquis Route PRN Reason Start Time Stop Time Status Last Admin Dose Admin Acetaminophen (Tylenol) 650 mg Q4H PRN ORAL Mild Pain (Pain Scale 1-3) 02/07/19 11:15 03/08/19 17:29 02/22/19 14:37 Acetaminophen/ Butalbital/ Caffeine (Fioricet) 1 tab Q8H PRN ORAL For Headache 02/08/19 17:15 03/10/19 17:14 Amlodipine Besylate (Norvasc) 10 mg DAILY NG 02/15/19 09:00 03/14/19 15:59 02/25/19 08:56 Artificial Tears (Lacri-Lube) 1 applic AC+HS BOTH EYES 02/18/19 06:30 03/20/19 06:29 02/25/19 20:56 Bisacodyl (Dulcolax) 5 mg DAILYPRN PRN ORAL Constipation 02/08/19 17:15 03/10/19 17:14 02/25/19 12:45 Chlorhexidine Gluconate (Jessy-Hex 2%) 1 applic DAILY@2000 TOPIC 02/25/19 20:00 03/27/19 19:59 02/25/19 20:56 Clonidine HCl (Catapres Tab) 0.1 mg EVERY 12 HOURS NG 02/25/19 21:00 03/19/19 13:59 Dextrose (Dextrose 50%) 25 ml Q30M PRN IV Hypoglycemia 02/20/19 06:45 03/22/19 06:44 Dextrose (Dextrose 50%) 50 ml Q30M PRN IV Hypoglycemia 02/20/19 06:45 03/22/19 06:44 02/20/19 08:49 Docusate Sodium (Colace) 100 mg TID GT 02/12/19 18:00 03/12/19 08:59 02/25/19 17:11 Fentanyl Citrate 2500 mcg/Sodium Chloride 250 ml @ 0 mls/hr Q24H IV 02/23/19 20:30 03/02/19 20:29 02/25/19 19:14 Fluconazole/ Sodium Chloride 100 ml @ 100 mls/hr Q24H IV 02/20/19 18:00 02/27/19 17:59 02/25/19 17:11 Guaifenesin (Mucinex ER) 600 mg TWICE A DAY ORAL 02/07/19 18:00 03/09/19 08:59 02/25/19 17:11 Heparin Sodium/ Sodium Chloride (Heparin 1000 units/500ml Premix) 1,000 unit ONCE PRN IV picc line placement 02/25/19 14:45 02/27/19 14:44 Hydralazine HCl (Apresoline) 10 mg Q4H PRN IV bp over 165 syst 02/17/19 10:15 03/19/19 10:14 02/19/19 14:45 Hydralazine HCl (Apresoline) 50 mg Q8HR NG 02/22/19 14:00 03/21/19 21:59 02/25/19 21:11 Insulin Aspart (NovoLOG) EVERY 4 HOURS SUBQ 02/15/19 21:00 03/17/19 20:59 02/25/19 17:13 Insulin Detemir (Levemir) 6 units DAILY SUBQ 02/26/19 09:00 03/22/19 08:59 Isosorbide Dinitrate (Isordil) 20 mg Q6HR NG 02/22/19 12:00 03/15/19 12:59 02/25/19 17:11 Lidocaine HCl (Xylocaine 1% 30ml) 30 ml ONCE PRN INJ picc line placement 02/25/19 14:45 02/27/19 14:44 Lorazepam (Ativan 2mg/ml 1ml) 2 mg Q2H PRN IV agitation/restlessness 02/19/19 22:00 02/26/19 21:44 02/25/19 21:11 Lorazepam (Ativan) 1 mg Q4H PRN ORAL For Anxiety 02/19/19 15:15 02/26/19 15:14 02/19/19 15:21 Methylprednisolone Sodium Succinate (Solu-MEDROL) 10 mg EVERY 12 HOURS IVP 02/19/19 21:00 03/12/19 20:59 02/25/19 20:56 Metolazone (Zaroxolyn) 10 mg DAILY NG 02/19/19 10:00 03/21/19 09:59 02/25/19 08:55 Metoprolol Tartrate (Lopressor) 100 mg Q12HR ORAL 02/22/19 21:00 03/08/19 20:59 02/25/19 21:11 Midazolam HCl (Versed 2mg/2ml vial) 1 mg Q2H PRN IVP Agitation 02/13/19 08:45 03/15/19 08:44 02/23/19 05:01 Neomycin/ Polymyxin/ Dexamethasone (Maxitrol Opth Oint) 1 applic BEDTIME BOTH EYES 02/18/19 21:00 03/20/19 20:59 02/25/19 20:56 Nitroglycerin (Ntg) 0.4 mg Q5M PRN SL Prn Chest Pain 02/07/19 11:00 03/08/19 17:29 02/08/19 07:42 Ondansetron HCl (Zofran) 4 mg Q6H PRN IVP Nausea & Vomiting 02/07/19 11:15 03/08/19 11:14 02/09/19 00:58 Pantoprazole (Protonix) 40 mg DAILY IVP 02/26/19 09:00 03/24/19 20:59 Patient Own Medication (Patient's Own Med) 1 ea BID ORAL 02/07/19 18:00 03/09/19 17:59 02/25/19 17:12 Patient Own Medication (Patient's Own Med) 1 ea Q48H ORAL 02/18/19 09:00 03/20/19 08:59 02/24/19 09:26 Patient Own Medication (Patient's Own Med) 2 ea DAILY ORAL 02/08/19 09:00 03/10/19 08:59 02/25/19 08:55 Piperacillin Sod/ Tazobactam Sod 3.375 gm/Sodium Chloride 110 ml @ 27.5 mls/hr EVERY 12 HOURS IVPB 02/25/19 21:00 03/01/19 21:59 Polyethylene Glycol (Miralax) 17 gm BEDTIME ORAL 02/08/19 21:00 03/10/19 20:59 02/25/19 20:56 Sennosides (Senokot) 8.6 mg DAILY ORAL 02/13/19 12:00 03/15/19 11:59 02/25/19 08:56 Trimethoprim/ Sulfamethoxazole 25 ml/Dextrose 575 ml @ 383.333 mls/hr [id number] BACTRIM IV 02/20/19 12:00 02/27/19 11:59 02/25/19 16:14 Last 24 Hour Vital Signs Date Time Temp Pulse Resp B/P (MAP) Pulse Ox O2 Delivery O2 Flow Rate FiO2 02/25/19 21:11 69 122/57 02/25/19 21:11 122/57 02/25/19 20:00 97.7 68 18 109/65 (80) 100 02/25/19 20:00 40 02/25/19 20:00 Mechanical Ventilator Mechanical Ventilator 02/25/19 19:30 69 17 94/79 (84) 99 02/25/19 19:14 24 Mechanical Ventilator 40 02/25/19 19:11 70 28 40 02/25/19 19:00 69 16 110/64 (79) 99 02/25/19 19:00 24 Mechanical Ventilator 40 02/25/19 18:00 24 Mechanical Ventilator 40 02/25/19 18:00 67 15 124/72 (89) 100 02/25/19 17:11 110/55 02/25/19 17:00 Mechanical Ventilator 40 02/25/19 17:00 69 19 124/65 (84) 100 02/25/19 16:35 71 27 40 02/25/19 16:00 97.6 69 19 128/76 (93) 100 02/25/19 16:00 62 02/25/19 16:00 Mechanical Ventilator Mechanical Ventilator 02/25/19 16:00 24 Mechanical Ventilator 40 02/25/19 16:00 40 02/25/19 15:00 Mechanical Ventilator 40 02/25/19 15:00 61 24 110/55 (73) 100 02/25/19 14:55 61 24 40 02/25/19 14:00 68 24 113/64 (80) 100 02/25/19 14:00 Mechanical Ventilator 40 02/25/19 13:10 115/56 02/25/19 13:00 66 24 113/76 (88) 100 02/25/19 13:00 20 Mechanical Ventilator 40 02/25/19 12:52 65 24 40 02/25/19 12:45 115/56 02/25/19 12:00 40 02/25/19 12:00 Mechanical Ventilator Mechanical Ventilator 02/25/19 12:00 96.8 65 24 114/63 (80) 100 02/25/19 12:00 Mechanical Ventilator 40 02/25/19 12:00 65 02/25/19 11:00 24 Mechanical Ventilator 40 02/25/19 11:00 65 24 115/56 (75) 100 02/25/19 10:31 67 24 40 02/25/19 10:13 72 26 40 02/25/19 10:00 72 20 131/94 (106) 100 02/25/19 10:00 24 Mechanical Ventilator 40 02/25/19 09:18 99 02/25/19 09:18 75 11 40 02/25/19 09:00 75 20 120/64 (82) 100 02/25/19 09:00 24 Mechanical Ventilator 40 02/25/19 08:57 63 110/65 02/25/19 08:56 63 122/65 02/25/19 08:10 98.2 02/25/19 08:00 74 02/25/19 08:00 40 02/25/19 08:00 96.7 63 20 121/64 (83) 100 02/25/19 08:00 Mechanical Ventilator Mechanical Ventilator 02/25/19 08:00 24 Mechanical Ventilator 40 02/25/19 07:40 24 Mechanical Ventilator 40 02/25/19 07:08 63 24 40 02/25/19 07:00 63 20 122/65 (84) 100 02/25/19 07:00 20 Mechanical Ventilator 40 02/25/19 06:30 69 20 118/56 (76) 99 02/25/19 06:00 20 Mechanical Ventilator 40 02/25/19 06:00 62 20 125/57 (79) 99 02/25/19 05:44 129/67 02/25/19 05:44 129/67 02/25/19 05:43 129/67 02/25/19 05:30 64 20 129/67 (87) 100 02/25/19 05:05 69 24 40 02/25/19 05:00 71 18 143/75 (97) 100 02/25/19 05:00 18 Mechanical Ventilator 40 02/25/19 04:30 67 20 130/74 (92) 100 02/25/19 04:00 40 02/25/19 04:00 18 Mechanical Ventilator 40 02/25/19 04:00 98.2 77 18 103/76 (85) 96 02/25/19 04:00 Mechanical Ventilator Mechanical Ventilator 02/25/19 03:30 70 18 117/61 (79) 100 02/25/19 03:07 69 26 40 02/25/19 03:06 68 02/25/19 03:00 23 Mechanical Ventilator 40 02/25/19 03:00 66 23 120/56 (77) 100 02/25/19 02:30 72 21 120/59 (79) 98 02/25/19 02:00 20 Mechanical Ventilator 40 02/25/19 02:00 71 20 144/64 (90) 98 02/25/19 01:30 68 23 124/67 (86) 97 02/25/19 01:05 66 24 40 02/25/19 01:00 66 24 118/60 (79) 96 02/25/19 01:00 24 Mechanical Ventilator 40 02/25/19 00:30 66 24 113/57 (75) 96 02/25/19 00:00 98.1 67 24 113/57 (75) 96 02/25/19 00:00 24 Mechanical Ventilator 40 02/25/19 00:00 40 02/25/19 00:00 Mechanical Ventilator Mechanical Ventilator 02/24/19 23:40 67 02/24/19 23:38 119/61 02/24/19 23:37 119/61 02/24/19 23:30 67 24 119/61 (80) 96 02/24/19 23:18 65 24 100 Mechanical Ventilator 40 02/24/19 23:08 63 24 100 Mechanical Ventilator 40 02/24/19 23:08 63 24 40 02/24/19 23:00 24 Mechanical Ventilator 40 02/24/19 23:00 64 24 120/61 (80) 96 02/24/19 22:56 21 Mechanical Ventilator 40 02/24/19 22:30 64 24 98/81 (87) 96 02/24/19 22:00 65 22 117/61 (79) 96 02/24/19 22:00 24 Mechanical Ventilator 40 02/24/19 21:31 129/67 02/24/19 21:30 66 24 128/59 (82) 98 02/24/19 21:00 76 20 129/72 (91) 100 02/24/19 21:00 20 Mechanical Ventilator 40 02/24/19 20:56 78 29 40 02/24/19 20:38 77 135/70 02/24/19 20:30 76 20 135/70 (91) 95 02/24/19 20:00 40 02/24/19 20:00 98.2 75 19 135/62 (86) 95 02/24/19 20:00 19 Mechanical Ventilator 40 02/24/19 20:00 Mechanical Ventilator Mechanical Ventilator 02/24/19 19:30 76 20 136/69 (91) 97 02/24/19 19:30 20 Mechanical Ventilator 40 02/24/19 19:28 74 02/24/19 19:00 73 24 129/71 (90) 100 02/24/19 18:58 76 24 100 Mechanical Ventilator 40 02/24/19 18:48 71 25 40 02/24/19 18:48 71 25 98 Mechanical Ventilator 40 02/24/19 18:30 72 24 139/68 (91) 98 02/24/19 18:00 24 Mechanical Ventilator 40 02/24/19 18:00 73 24 126/65 (85) 97 02/24/19 17:30 70 24 119/61 (80) 97 02/24/19 17:28 125/66 02/24/19 17:28 125/66 02/24/19 17:00 70 24 40 02/24/19 17:00 24 Mechanical Ventilator 40 02/24/19 17:00 71 24 120/64 (82) 98 02/24/19 16:30 70 24 126/57 (80) 98 02/24/19 16:00 40 02/24/19 16:00 75 02/24/19 16:00 70 24 126/57 (80) 98 02/24/19 16:00 24 Mechanical Ventilator 40 02/24/19 16:00 Mechanical Ventilator Mechanical Ventilator 02/24/19 15:30 75 24 137/69 (91) 98 02/24/19 15:00 24 Mechanical Ventilator 40 02/24/19 15:00 75 24 120/63 (82) 98 02/24/19 14:54 71 24 100 Mechanical Ventilator 40 02/24/19 14:52 72 26 40 02/24/19 14:50 72 24 100 Mechanical Ventilator 40 02/24/19 14:30 71 24 140/75 (96) 99 02/24/19 14:22 134/70 02/24/19 14:15 24 Mechanical Ventilator 40 02/24/19 14:00 24 Mechanical Ventilator 40 02/24/19 14:00 72 24 134/70 (91) 100 02/24/19 13:30 74 24 129/71 (90) 98 02/24/19 13:00 24 Mechanical Ventilator 40 02/24/19 13:00 68 24 130/71 (90) 97 02/24/19 12:40 118/58 02/24/19 12:35 69 26 40 02/24/19 12:30 65 24 118/58 (78) 98 02/24/19 12:00 98.1 64 24 121/68 (85) 98 02/24/19 12:00 24 Mechanical Ventilator 40 02/24/19 12:00 118/58 02/24/19 12:00 40 02/24/19 12:00 Mechanical Ventilator Mechanical Ventilator 02/24/19 12:00 67 02/24/19 11:30 67 24 121/64 (83) 97 02/24/19 11:00 75 24 131/68 (89) 99 02/24/19 11:00 24 Mechanical Ventilator 40 02/24/19 10:44 72 24 100 Mechanical Ventilator 40 02/24/19 10:42 72 26 40 02/24/19 10:36 73 24 100 Mechanical Ventilator 40 02/24/19 10:30 71 24 125/61 (82) 100 02/24/19 10:00 71 24 136/72 (93) 98 02/24/19 10:00 24 Mechanical Ventilator 40 02/24/19 09:30 80 24 136/65 (88) 98 02/24/19 09:25 81 145/72 02/24/19 09:25 80 145/72 02/24/19 09:00 24 Mechanical Ventilator 40 02/24/19 09:00 81 24 145/72 (96) 98 02/24/19 08:36 77 24 40 02/24/19 08:30 82 24 153/66 (95) 98 02/24/19 08:00 82 02/24/19 08:00 24 Mechanical Ventilator 40 02/24/19 08:00 40 02/24/19 08:00 Mechanical Ventilator Mechanical Ventilator 02/24/19 08:00 98.7 75 24 140/73 (95) 96 02/24/19 07:30 72 24 122/74 (90) 96 02/24/19 07:01 78 24 99 Mechanical Ventilator 40 02/24/19 07:00 72 24 132/65 (87) 96 02/24/19 07:00 20 Mechanical Ventilator 40 02/24/19 06:58 73 24 40 02/24/19 06:55 79 24 99 Mechanical Ventilator 40 02/24/19 06:30 74 17 139/77 (97) 100 02/24/19 06:00 70 22 128/75 (92) 99 02/24/19 06:00 22 Mechanical Ventilator 40 02/24/19 05:46 148/84 02/24/19 05:45 148/84 02/24/19 05:45 148/84 02/24/19 05:30 72 24 40 02/24/19 05:30 74 19 150/79 (102) 99 02/24/19 05:00 79 17 149/52 (84) 97 02/24/19 05:00 17 Mechanical Ventilator 40 02/24/19 04:30 74 19 140/73 (95) 98 02/24/19 04:12 24 Mechanical Ventilator 40 02/24/19 04:00 Mechanical Ventilator Mechanical Ventilator 02/24/19 04:00 98.3 74 24 136/74 (94) 98 02/24/19 04:00 40 02/24/19 03:30 71 22 129/65 (86) 99 02/24/19 03:05 65 24 100 Mechanical Ventilator 40 02/24/19 03:01 64 02/24/19 03:00 22 Mechanical Ventilator 40 02/24/19 03:00 64 22 110/57 (74) 100 02/24/19 02:55 63 24 100 Mechanical Ventilator 40 02/24/19 02:55 63 24 40 02/24/19 02:30 63 23 108/67 (81) 98 02/24/19 02:00 24 Non-Rebreather 40 02/24/19 02:00 64 24 110/60 (77) 98 02/24/19 01:30 72 24 127/67 (87) 98 02/24/19 01:17 75 24 40 02/24/19 01:00 64 24 106/62 (77) 97 02/24/19 01:00 24 Mechanical Ventilator 40 02/24/19 00:30 69 21 105/60 (75) 97 02/24/19 00:00 97.4 77 24 120/57 (78) 98 02/24/19 00:00 Mechanical Ventilator Mechanical Ventilator 02/24/19 00:00 24 Mechanical Ventilator 40 02/23/19 23:40 123/70 02/23/19 23:40 123/70 02/23/19 23:30 71 24 123/70 (87) 97 02/23/19 23:10 75 24 99 Mechanical Ventilator 40 02/23/19 23:02 69 02/23/19 23:00 64 24 99 Mechanical Ventilator 40 02/23/19 23:00 69 24 152/70 (97) 100 02/23/19 23:00 64 24 40 02/23/19 23:00 24 Mechanical Ventilator 40 02/23/19 22:30 64 21 106/85 (92) 98 02/23/19 22:00 63 24 110/59 (76) 98 02/23/19 22:00 24 Mechanical Ventilator 40 02/23/19 21:39 110/61 02/23/19 21:30 64 22 110/63 (79) 99 Intake and Output 02/24/19 02/25/19 19:00 07:00 Intake Total 2406.5 ml 1382.0 ml Output Total 1160 ml 735 ml Balance 1246.5 ml 647.0 ml Free Water 200 ml IV Total 2006.5 ml 1082.0 ml Tube Feeding 180 ml 100 ml Other 20 ml 200 ml Output Urine Total 1160 ml 705 ml Stool Total 30 ml Labs Test 02/23/19 04:30 02/23/19 08:14 02/24/19 04:45 02/25/19 04:40 Sodium Level 135 MMOL/L (136-145) 135 MMOL/L (136-145) 134 MMOL/L (136-145) Potassium Level 4.5 MMOL/L (3.5-5.1) 5.0 MMOL/L (3.5-5.1) 5.3 MMOL/L (3.5-5.1) Chloride Level 100 MMOL/L (98-107) 101 MMOL/L (98-107) 100 MMOL/L (98-107) Carbon Dioxide Level 26 MMOL/L (21-32) 24 MMOL/L (21-32) 23 MMOL/L (21-32) Anion Gap 10 mmol/L (5-15) 10 mmol/L (5-15) 11 mmol/L (5-15) Blood Urea Nitrogen 58 mg/dL (7-18) 59 mg/dL (7-18) 66 mg/dL (7-18) Creatinine 2.6 MG/DL (0.55-1.30) 2.6 MG/DL (0.55-1.30) 2.9 MG/DL (0.55-1.30) Estimat Glomerular Filtration Rate 25.4 mL/min (>60) 25.4 mL/min (>60) 22.4 mL/min (>60) Glucose Level 93 MG/DL (74-106) 122 MG/DL (74-106) 75 MG/DL (74-106) Calcium Level 8.0 MG/DL (8.5-10.1) 8.1 MG/DL (8.5-10.1) 8.4 MG/DL (8.5-10.1) Arterial Blood pH 7.381 (7.350-7.450) Arterial Blood Partial Pressure CO2 39.0 mmHg (35.0-45.0) Arterial Blood Partial Pressure O2 88.5 mmHg (75.0-100.0) Arterial Blood HCO3 22.6 mmol/L (22.0-26.0) Arterial Blood Oxygen Saturation 95.9 % (95-100) Arterial Blood Base Excess -2.3 (-2-2) Benny Test Positive White Blood Count 6.4 K/UL (4.8-10.8) 6.0 K/UL (4.8-10.8) Red Blood Count 3.14 M/UL (4.70-6.10) 3.07 M/UL (4.70-6.10) Hemoglobin 9.0 G/DL (14.2-18.0) 8.8 G/DL (14.2-18.0) Hematocrit 27.9 % (42.0-52.0) 27.5 % (42.0-52.0) Mean Corpuscular Volume 89 FL (80-99) 90 FL (80-99) Mean Corpuscular Hemoglobin 28.8 PG (27.0-31.0) 28.6 PG (27.0-31.0) Mean Corpuscular Hemoglobin Concent 32.4 G/DL (32.0-36.0) 32.0 G/DL (32.0-36.0) Red Cell Distribution Width 17.1 % (11.6-14.8) 17.2 % (11.6-14.8) Platelet Count 202 K/UL (150-450) 193 K/UL (150-450) Mean Platelet Volume 6.1 FL (6.5-10.1) 6.2 FL (6.5-10.1) Neutrophils (%) (Auto) % (45.0-75.0) % (45.0-75.0) Lymphocytes (%) (Auto) % (20.0-45.0) % (20.0-45.0) Monocytes (%) (Auto) % (1.0-10.0) % (1.0-10.0) Eosinophils (%) (Auto) % (0.0-3.0) % (0.0-3.0) Basophils (%) (Auto) % (0.0-2.0) % (0.0-2.0) Differential Total Cells Counted 100 100 Neutrophils % (Manual) 84 % (45-75) 90 % (45-75) Lymphocytes % (Manual) 9 % (20-45) 7 % (20-45) Monocytes % (Manual) 7 % (1-10) 3 % (1-10) Eosinophils % (Manual) 0 % (0-3) 0 % (0-3) Basophils % (Manual) 0 % (0-2) 0 % (0-2) Band Neutrophils 0 % (0-8) 0 % (0-8) Platelet Estimate Adequate Adequate Platelet Morphology Normal Normal Anisocytosis 1+ 1+ Prothrombin Time 11.7 SEC (9.30-11.50) Prothromb Time International Ratio 1.1 (0.9-1.1) Activated Partial Thromboplast Time 31 SEC (23-33) Phosphorus Level 5.0 MG/DL (2.5-4.9) 5.8 MG/DL (2.5-4.9) Magnesium Level 2.1 MG/DL (1.8-2.4) 2.2 MG/DL (1.8-2.4) Total Bilirubin 0.5 MG/DL (0.2-1.0) 0.4 MG/DL (0.2-1.0) Aspartate Amino Transf (AST/SGOT) 58 U/L (15-37) 57 U/L (15-37) Alanine Aminotransferase (ALT/SGPT) 59 U/L (12-78) 59 U/L (12-78) Alkaline Phosphatase 105 U/L (46-116) 107 U/L (46-116) Total Protein 5.9 G/DL (6.4-8.2) 6.1 G/DL (6.4-8.2) Albumin 2.4 G/DL (3.4-5.0) 2.5 G/DL (3.4-5.0) Globulin 3.5 g/dL Albumin/Globulin Ratio 0.7 (1.0-2.7) Direct Bilirubin 0.3 MG/DL (0.0-0.3) Test 02/25/19 10:00 Arterial Blood pH 7.249 (7.350-7.450) Arterial Blood Partial Pressure CO2 48.0 mmHg (35.0-45.0) Arterial Blood Partial Pressure O2 77.5 mmHg (75.0-100.0) Arterial Blood HCO3 20.5 mmol/L (22.0-26.0) Arterial Blood Oxygen Saturation 92.6 % (95-100) Arterial Blood Base Excess -6.5 (-2-2) Benny Test Positive Height (Feet): 6 Height (Inches): 0.00 Weight (Pounds): 264 Objective Objective PHYSICAL EXAMINATION: GENERAL: NAD, Sedated VITAL SIGNS: Have been reviewed. HEAD AND NECK: Shows no JVD. NG+ TRACH+ LUNGS: Coarse rhonchi. CARDIOVASCULAR: Shows regular S1 and S2 with no gallop or murmur. ABDOMEN: Soft, large + BS EXTREMITIES: No pitting edema. + Daniela Monson NP Feb 25, 2019 21:19
--- NOTE | 2019-02-25 22:03 | NUR ---
NURSE NOTES: Patient is calm for now. Repositioned patient and oral care is provided. Will continue plan of care.
[2019-02-26] VITALS (45 sets, daily range): BP systolic 107–153; BP diastolic 49–102
[2019-02-26] MEDS: NovoLOG Insulin Flexpen SUBQ SCH ×4 (00:44→17:42)
[2019-02-26] MEDS: LORazepam Inj 2mg/ml 1ml IV PRN ×4 (01:32→18:20)
--- NOTE | 2019-02-26 02:05 | NUR ---
NURSE NOTES: Repositioned patient and central line dressing is changed with sterile technique.
--- NOTE | 2019-02-26 02:48 | NUR ---
NURSE NOTES: Since last night 2300, No urine output noted. Bladder scan done. 477ml urine residual noted. Checked smith catheter. No kink or occlusion noted. Flushed smith catheter with sterile water 50cc then 1100ml urine came out. Will continue plan of care.
--- NOTE | 2019-02-26 04:02 | NUR ---
NURSE NOTES: Bed bath and oral care given. Repositioned patient. Blood is drawn and sent to the lab.
[2019-02-26] MEDS: fentaNYL Citrate 2500mcg in NS 250ml IV SCH ×3 (04:34→21:05)
[2019-02-26 05:09] LABS: HEMATOCRIT 27.1 % (42.0-52.0); HEMOGLOBIN 8.7 G/DL (14.2-18.0); MEAN CORPUSCULAR VOLUME 89 FL (80-99); PLATELET COUNT 180 K/UL (150-450); RED BLOOD COUNT 3.06 M/UL (4.70-6.10); RED CELL DISTRIBUTION WIDTH 16.7 % (11.6-14.8); WHITE BLOOD COUNT 5.9 K/UL (4.8-10.8)
[2019-02-26 05:32] LABS: ALANINE AMINOTRANSFERASE 54 U/L (12-78); ALBUMIN 2.6 G/DL (3.4-5.0); ALBUMIN/GLOBULIN RATIO 0.8 (1.0-2.7); ALKALINE PHOSPHATASE 108 U/L (46-116); ANION GAP 10 mmol/L (5-15); ASPARTATE AMINO TRANSFERASE 64 U/L (15-37); BILIRUBIN,TOTAL 0.4 MG/DL (0.2-1.0); BLOOD UREA NITROGEN 72 mg/dL (7-18); CALCIUM 8.1 MG/DL (8.5-10.1); CARBON DIOXIDE 22 MMOL/L (21-32); CHLORIDE 97 MMOL/L (98-107); PHOSPHORUS 5.5 MG/DL (2.5-4.9); POTASSIUM 5.5 MMOL/L (3.5-5.1); SODIUM 129 MMOL/L (136-145)
[2019-02-26] MEDS: Lacri-Lube Opth Oint 3.5gm BOTH EYES SCH ×4 (05:44→20:29)
[2019-02-26] MEDS: HydrALAZINE 50mg tab NG SCH ×3 (05:44→21:04)
--- NOTE | 2019-02-26 07:00 | NUR ---
RESPIRATORY NOTE:Received pt on PB vent Pt is orally intubated. Pt is resting comfortably in bed, no SOB or no resp distress noted at this time. Alarms are set and audible, vent is plugged into the red outlet, ambu bag is at bedside. Vent circuits and sxn tubing are patent, secured and out of the way. Will continue to monitor pt.
--- NOTE | 2019-02-26 07:15 | NUR ---
NURSE NOTES: Received report from TESSA Ewing. Patient eyes closed at this time. Upon inspection, patient's lower sclera still swollen and red. Will cover eyes with saline soaked gauze to preserve moisture. Patient is sedated at this time with fentanyl running at 300mcg/hr (30mL/hr). Patient showing no sign of acute distress at this time. Patient has RASS score of -2 and is easily arousable but not restless at this time. Will continue to monitor and titrate per protocol. Patient intubated with 7.5cm ETT with 24cm at the lip line and ventilator setting of AC 24, TV 550, FiO2 40%, and PEEP 5. Bilateral upper lung lobes inspiratory and expiratory rhonchi, lower lobes diminished and difficult to hear due to patient's abdominal distention. Patient tolerating setting with oxygen saturation 96% at this time. Patient blood pressure 123/57, HR 70, RR 24, Temp 97.6. Patient has an NGT in the left nares that is patent and verified with auscultation at this time. Patient running Glucerna 1.2 at 35mL/hr with goal of 55mL/hr. Patient rate not increased due to high residual of 50-70mL throughout the night. Will continue to monitor residual and adjust feeding rate when appropriate. Patient has anasarca with pitting edema on +3 to +4 on the lower extremities and pitting +2 to +3 on the upper extremities. Abdomen distention is non-pitting but tight. Petechiae noted on the under arms. Scrotum swollen and non-pitting. Simon in place for urine retention and to monitor kidney function. Urine dark scott at this time. Patient has left femoral paulo catheter with pigtail running Fentanyl at 300mcg/hr (30mL/hr) at this time. Dressing changed during ethnoarchaeologist last night. Patient continues to ooze serosanguineous fluid from Paulo catheter. Will continue to monitor and redress Paulo catheter as needed. Patient has a left hand 22G PIV that is patent, asymptomatic and running saline locked at this time. Patient bilateral lower extremities elevated at this time with heels floated. Patient has a resolved stage one pressure ulcer of the right elbow and a small skin tear on the left thigh. Patient is at risk for skin breakdown and will be turned every 2 hours and as needed. Oral care and repositioning done at this time. Bed in low position with bed alarm on and call light in reach. Patient has an order for PICC line placement today. Consent has not been signed. Will follow up.
--- NOTE | 2019-02-26 07:15 | NUR ---
HAND-OFF: Report given to Suze Tang RN. Endorsed plan of care.
--- NOTE | 2019-02-26 07:16 | NUR ---
NURSE NOTES: Obtained consent for peripherally inserted central line catheter from patient's mother. Patient's mother stated that she was not aware that the patient was admitted to the hospital and asked for an update regarding her sons condition. I offered to notify the doctor that she would like an update. She consented to have the doctor call her. Will follow up with Dr Lutz or Dr Douglas when they round on the patient. Addendum: 02/26/19 at 0759 by Suze Tang RN Was notified by another nurse who has had the patient previously that the patient's mother is known to have dementia and she is not to be contacted except for emergency. In the chart I found a note stating this from Neeta bottle caser. Will hold PICC placement and discuss with doctors and bottle caser.
--- NOTE | 2019-02-26 07:16 | NUR ---
NURSE NOTES: Simon intact and draining by gravity. Still on fentanyl drip 300 mcg/hr with RASS -2. Will continue plan of care. Addendum: 02/26/19 at 0718 by KEYUR EUCEDA RN Wrong entry time. for 0600
--- NOTE | 2019-02-26 07:27 | General Progress Note ---
Assessment/Plan Problem List: (1) ISH (acute kidney injury) ICD Codes: N17.9 - Acute kidney failure, unspecified SNOMED: 82566411 (2) Uncontrolled type 2 diabetes mellitus with chronic kidney disease ICD Codes: E11.22 - Type 2 diabetes mellitus with diabetic chronic kidney disease; E11.65 - Type 2 diabetes mellitus with hyperglycemia SNOMED: 34721862, 502850537, 732877041 (3) HIV disease ICD Codes: B20 - Human immunodeficiency virus [HIV] disease SNOMED: 36275510 (4) Respiratory distress ICD Codes: R06.03 - Acute respiratory distress SNOMED: 137032573 Status: stable Assessment/Plan: - DC Levemir - change Novolog sliding scale resistant scale every 4 hours to average scale every 6 hours Subjective ROS Limited/Unobtainable: Yes Allergies: Coded Allergies: No Known Allergies (Unverified , 02/05/13) Subjective events noted remained intubated in ICU glucose values on lower side Item Value Date Time Bedside Blood Glucose 89 mg/dl 02/26/19 0500 Bedside Blood Glucose 120 mg/dl 02/26/19 0100 Bedside Blood Glucose 91 mg/dl 02/25/19 2100 Bedside Blood Glucose 112 mg/dl 02/25/19 1713 Bedside Blood Glucose 72 mg/dl 02/25/19 1246 Bedside Blood Glucose 61 mg/dl L 02/25/19 0858 Bedside Blood Glucose 87 mg/dl 02/25/19 0435 Objective Last 24 Hour Vital Signs Date Time Temp Pulse Resp B/P (MAP) Pulse Ox O2 Delivery O2 Flow Rate FiO2 02/26/19 07:03 63 24 40 02/26/19 07:00 69 24 123/63 (83) 97 02/26/19 06:30 62 23 107/49 (68) 97 02/26/19 06:00 22 Mechanical Ventilator 40 02/26/19 06:00 64 18 111/49 (69) 98 02/26/19 05:44 117/56 02/26/19 05:44 117/56 02/26/19 05:30 66 17 117/56 (76) 100 02/26/19 05:16 67 24 40 02/26/19 05:00 68 19 122/63 (82) 99 02/26/19 05:00 24 Mechanical Ventilator 40 02/26/19 04:34 24 Mechanical Ventilator 40 02/26/19 04:30 66 24 128/65 (86) 99 02/26/19 04:00 65 02/26/19 04:00 24 Mechanical Ventilator 40 02/26/19 04:00 40 02/26/19 04:00 97.5 68 19 129/67 (87) 99 02/26/19 04:00 Mechanical Ventilator Mechanical Ventilator 02/26/19 03:30 66 14 124/71 (88) 99 02/26/19 03:00 67 19 119/59 (79) 100 02/26/19 03:00 23 Mechanical Ventilator 40 02/26/19 02:54 68 24 40 02/26/19 02:30 65 20 153/51 (85) 99 02/26/19 02:00 67 20 123/72 (89) 99 02/26/19 02:00 22 Mechanical Ventilator 40 02/26/19 01:30 63 24 118/67 (84) 99 02/26/19 01:05 65 24 40 02/26/19 01:00 66 20 124/68 (86) 98 02/26/19 01:00 24 Mechanical Ventilator 40 02/26/19 00:30 66 12 109/60 (76) 97 02/26/19 00:00 40 02/26/19 00:00 97.2 63 24 114/52 (72) 97 02/26/19 00:00 Mechanical Ventilator Mechanical Ventilator 02/26/19 00:00 24 Mechanical Ventilator 40 02/26/19 00:00 109/60 02/26/19 00:00 63 02/25/19 23:30 62 20 113/52 (72) 97 02/25/19 23:00 63 22 112/55 (74) 98 02/25/19 23:00 24 Mechanical Ventilator 40 02/25/19 22:58 63 24 40 02/25/19 22:30 63 23 109/59 (76) 99 02/25/19 22:00 66 15 130/74 (92) 98 02/25/19 22:00 24 Mechanical Ventilator 40 02/25/19 21:30 69 19 134/61 (85) 99 02/25/19 21:12 78 25 40 02/25/19 21:11 69 122/57 02/25/19 21:11 122/57 02/25/19 21:00 122/57 02/25/19 21:00 24 Mechanical Ventilator 40 02/25/19 21:00 71 15 122/57 (78) 96 02/25/19 20:30 68 16 120/74 (89) 100 02/25/19 20:00 97.7 68 18 109/65 (80) 100 02/25/19 20:00 24 Mechanical Ventilator 40 02/25/19 20:00 40 02/25/19 20:00 Mechanical Ventilator Mechanical Ventilator 02/25/19 20:00 68 02/25/19 19:30 69 17 94/79 (84) 99 02/25/19 19:14 24 Mechanical Ventilator 40 02/25/19 19:11 70 28 40 02/25/19 19:00 69 16 110/64 (79) 99 02/25/19 19:00 24 Mechanical Ventilator 40 02/25/19 18:00 24 Mechanical Ventilator 40 02/25/19 18:00 67 15 124/72 (89) 100 02/25/19 17:11 110/55 02/25/19 17:00 Mechanical Ventilator 40 02/25/19 17:00 69 19 124/65 (84) 100 02/25/19 16:35 71 27 40 02/25/19 16:00 97.6 69 19 128/76 (93) 100 02/25/19 16:00 62 02/25/19 16:00 Mechanical Ventilator Mechanical Ventilator 02/25/19 16:00 24 Mechanical Ventilator 40 02/25/19 16:00 40 02/25/19 15:00 Mechanical Ventilator 40 02/25/19 15:00 61 24 110/55 (73) 100 02/25/19 14:55 61 24 40 02/25/19 14:00 68 24 113/64 (80) 100 02/25/19 14:00 Mechanical Ventilator 40 02/25/19 13:10 115/56 02/25/19 13:00 66 24 113/76 (88) 100 02/25/19 13:00 20 Mechanical Ventilator 40 02/25/19 12:52 65 24 40 02/25/19 12:45 115/56 02/25/19 12:00 40 02/25/19 12:00 Mechanical Ventilator Mechanical Ventilator 02/25/19 12:00 96.8 65 24 114/63 (80) 100 02/25/19 12:00 Mechanical Ventilator 40 02/25/19 12:00 65 02/25/19 11:00 24 Mechanical Ventilator 40 02/25/19 11:00 65 24 115/56 (75) 100 02/25/19 10:31 67 24 40 02/25/19 10:13 72 26 40 02/25/19 10:00 72 20 131/94 (106) 100 02/25/19 10:00 24 Mechanical Ventilator 40 02/25/19 09:18 99 02/25/19 09:18 75 11 40 02/25/19 09:00 75 20 120/64 (82) 100 02/25/19 09:00 24 Mechanical Ventilator 40 02/25/19 08:57 63 110/65 02/25/19 08:56 63 122/65 02/25/19 08:10 98.2 02/25/19 08:00 74 02/25/19 08:00 40 02/25/19 08:00 96.7 63 20 121/64 (83) 100 02/25/19 08:00 Mechanical Ventilator Mechanical Ventilator 02/25/19 08:00 24 Mechanical Ventilator 40 02/25/19 07:40 24 Mechanical Ventilator 40 Intake and Output 02/25/19 02/26/19 19:00 07:00 Intake Total 2359.832 ml 1289.000 ml Output Total 885 ml 1790 ml Balance 1474.832 ml -501.000 ml Free Water 120 ml IV Total 1909.832 ml 979.000 ml Tube Feeding 330 ml 310 ml Output Urine Total 885 ml 1790 ml Laboratory Tests 02/25/19 10:00: Arterial Blood pH 7.249*L, Arterial Blood Partial Pressure CO2 48.0H, Arterial Blood Partial Pressure O2 77.5, Arterial Blood HCO3 20.5L, Arterial Blood Oxygen Saturation 92.6L, Arterial Blood Base Excess -6.5L, Benny Test Positive 02/26/19 04:22: White Blood Count 5.9, Red Blood Count 3.06L, Hemoglobin 8.7L, Hematocrit 27.1L , Mean Corpuscular Volume 89, Mean Corpuscular Hemoglobin 28.6, Mean Corpuscular Hemoglobin Concent 32.2, Red Cell Distribution Width 16.7H, Platelet Count 180, Mean Platelet Volume 6.3L, Neutrophils (%) (Auto) , Lymphocytes (%) (Auto) , Monocytes (%) (Auto) , Eosinophils (%) (Auto) , Basophils (%) (Auto) , Sodium Level 129L, Potassium Level 5.5H, Chloride Level 97L, Carbon Dioxide Level 22, Anion Gap 10, Blood Urea Nitrogen 72H, Creatinine 3.0H, Estimat Glomerular Filtration Rate 21.5, Glucose Level 93, Calcium Level 8.1L, Phosphorus Level 5.5H, Magnesium Level 2.3, Total Bilirubin 0.4, Aspartate Amino Transf (AST/SGOT) 64H, Alanine Aminotransferase (ALT/SGPT) 54, Alkaline Phosphatase 108, Total Protein 5.8L, Albumin 2.6L, Globulin 3.2, Albumin/Globulin Ratio 0.8L Height (Feet): 6 Height (Inches): 0.00 Weight (Pounds): 269 General Appearance: other - intubated EENT: other - ETT Neck: normal alignment Cardiovascular: tachycardia Respiratory/Chest: decreased breath sounds Abdomen: normal bowel sounds Edema: 2+ Arm (L), 2+ Arm (R), 2+ Leg (L), 2+ Leg (R), 2+ Pedal (L), 2+ Pedal ( R), 2+ Generalized Objective Current Medications Medications (Trade) Dose Ordered Sig/Marquis Route PRN Reason Start Time Stop Time Status Last Admin Dose Admin Acetaminophen (Tylenol) 650 mg Q4H PRN ORAL Mild Pain (Pain Scale 1-3) 02/07/19 11:15 03/08/19 17:29 02/22/19 14:37 Acetaminophen/ Butalbital/ Caffeine (Fioricet) 1 tab Q8H PRN ORAL For Headache 02/08/19 17:15 03/10/19 17:14 Amlodipine Besylate (Norvasc) 10 mg DAILY NG 02/15/19 09:00 03/14/19 15:59 02/25/19 08:56 Artificial Tears (Lacri-Lube) 1 applic AC+HS BOTH EYES 02/18/19 06:30 03/20/19 06:29 02/26/19 05:44 Bisacodyl (Dulcolax) 5 mg DAILYPRN PRN ORAL Constipation 02/08/19 17:15 03/10/19 17:14 02/25/19 12:45 Chlorhexidine Gluconate (Jessy-Hex 2%) 1 applic DAILY@2000 TOPIC 02/25/19 20:00 8/6/19 19:59 02/25/19 20:56 Clonidine HCl (Catapres Tab) 0.1 mg EVERY 12 HOURS NG 02/25/19 21:00 03/19/19 13:59 Dextrose (Dextrose 50%) 25 ml Q30M PRN IV Hypoglycemia 02/20/19 06:45 03/22/19 06:44 Dextrose (Dextrose 50%) 50 ml Q30M PRN IV Hypoglycemia 02/20/19 06:45 03/22/19 06:44 02/20/19 08:49 Docusate Sodium (Colace) 100 mg TID GT 02/12/19 18:00 03/12/19 08:59 02/25/19 17:11 Fentanyl Citrate 2500 mcg/Sodium Chloride 250 ml @ 0 mls/hr Q24H IV 02/23/19 20:30 03/02/19 20:29 02/26/19 04:34 Fluconazole/ Sodium Chloride 100 ml @ 100 mls/hr Q24H IV 02/20/19 18:00 02/27/19 17:59 02/25/19 17:11 Guaifenesin (Mucinex ER) 600 mg TWICE A DAY ORAL 02/07/19 18:00 03/09/19 08:59 02/25/19 17:11 Heparin Sodium/ Sodium Chloride (Heparin 1000 units/500ml Premix) 1,000 unit ONCE PRN IV picc line placement 02/25/19 14:45 02/27/19 14:44 Hydralazine HCl (Apresoline) 10 mg Q4H PRN IV bp over 165 syst 02/17/19 10:15 03/19/19 10:14 02/19/19 14:45 Hydralazine HCl (Apresoline) 50 mg Q8HR NG 02/22/19 14:00 03/21/19 21:59 02/25/19 21:11 Insulin Aspart (NovoLOG) EVERY 4 HOURS SUBQ 02/15/19 21:00 03/17/19 20:59 02/26/19 00:44 Insulin Detemir (Levemir) 6 units DAILY SUBQ 02/26/19 09:00 03/22/19 08:59 Isosorbide Dinitrate (Isordil) 20 mg Q6HR NG 02/22/19 12:00 03/15/19 12:59 02/26/19 05:44 Lidocaine HCl (Xylocaine 1% 30ml) 30 ml ONCE PRN INJ picc line placement 02/25/19 14:45 02/27/19 14:44 Lorazepam (Ativan 2mg/ml 1ml) 2 mg Q2H PRN IV agitation/restlessness 02/19/19 22:00 02/26/19 21:44 02/26/19 01:32 Lorazepam (Ativan) 1 mg Q4H PRN ORAL For Anxiety 02/19/19 15:15 02/26/19 15:14 02/19/19 15:21 Methylprednisolone Sodium Succinate (Solu-MEDROL) 10 mg EVERY 12 HOURS IVP 02/19/19 21:00 03/12/19 20:59 02/25/19 20:56 Metolazone (Zaroxolyn) 10 mg DAILY NG 02/19/19 10:00 03/21/19 09:59 02/25/19 08:55 Metoprolol Tartrate (Lopressor) 100 mg Q12HR ORAL 02/22/19 21:00 03/08/19 20:59 02/25/19 21:11 Midazolam HCl (Versed 2mg/2ml vial) 1 mg Q2H PRN IVP Agitation 02/13/19 08:45 03/15/19 08:44 02/23/19 05:01 Neomycin/ Polymyxin/ Dexamethasone (Maxitrol Opth Oint) 1 applic BEDTIME BOTH EYES 02/18/19 21:00 03/20/19 20:59 02/25/19 20:56 Nitroglycerin (Ntg) 0.4 mg Q5M PRN SL Prn Chest Pain 02/07/19 11:00 03/08/19 17:29 02/08/19 07:42 Ondansetron HCl (Zofran) 4 mg Q6H PRN IVP Nausea & Vomiting 02/07/19 11:15 03/08/19 11:14 02/09/19 00:58 Pantoprazole (Protonix) 40 mg DAILY IVP 02/26/19 09:00 03/24/19 20:59 Patient Own Medication (Patient's Own Med) 1 ea BID ORAL 02/07/19 18:00 03/09/19 17:59 02/25/19 17:12 Patient Own Medication (Patient's Own Med) 1 ea Q48H ORAL 02/18/19 09:00 03/20/19 08:59 02/24/19 09:26 Patient Own Medication (Patient's Own Med) 2 ea DAILY ORAL 02/08/19 09:00 03/10/19 08:59 02/25/19 08:55 Piperacillin Sod/ Tazobactam Sod 3.375 gm/Sodium Chloride 110 ml @ 27.5 mls/hr EVERY 12 HOURS IVPB 02/25/19 21:00 03/01/19 21:59 02/25/19 21:21 Polyethylene Glycol (Miralax) 17 gm BEDTIME ORAL 02/08/19 21:00 03/10/19 20:59 02/25/19 20:56 Sennosides (Senokot) 8.6 mg DAILY ORAL 02/13/19 12:00 03/15/19 11:59 02/25/19 08:56 Trimethoprim/ Sulfamethoxazole 25 ml/Dextrose 575 ml @ 383.333 mls/hr [id number] BACTRIM IV 02/20/19 12:00 02/27/19 11:59 02/25/19 23:42 Carlito Nichols MD Feb 26, 2019 07:27
--- NOTE | 2019-02-26 08:11 | General Progress Note ---
Assessment/Plan Status: stable Assessment/Plan: 1. History of HIV. 2. Hypertension. 3. Vertigo. 4. History of headaches. 5. History of diabetes. 6. Respiratory failure 7. Dysphagia 8. ileus stable H&H NGTF ppi fu H&H prn blood transfusion ppi add low dose reglan Subjective ROS Limited/Unobtainable: No Allergies: Coded Allergies: No Known Allergies (Unverified , 02/05/13) Objective Last 24 Hour Vital Signs Date Time Temp Pulse Resp B/P (MAP) Pulse Ox O2 Delivery O2 Flow Rate FiO2 02/26/19 07:03 63 24 40 02/26/19 07:00 69 24 123/63 (83) 97 02/26/19 07:00 24 Mechanical Ventilator 40 02/26/19 06:30 62 23 107/49 (68) 97 02/26/19 06:00 22 Mechanical Ventilator 40 02/26/19 06:00 64 18 111/49 (69) 98 02/26/19 05:44 117/56 02/26/19 05:44 117/56 02/26/19 05:30 66 17 117/56 (76) 100 02/26/19 05:16 67 24 40 02/26/19 05:00 68 19 122/63 (82) 99 02/26/19 05:00 24 Mechanical Ventilator 40 02/26/19 04:34 24 Mechanical Ventilator 40 02/26/19 04:30 66 24 128/65 (86) 99 02/26/19 04:00 65 02/26/19 04:00 24 Mechanical Ventilator 40 02/26/19 04:00 40 02/26/19 04:00 97.5 68 19 129/67 (87) 99 02/26/19 04:00 Mechanical Ventilator Mechanical Ventilator 02/26/19 03:30 66 14 124/71 (88) 99 02/26/19 03:00 67 19 119/59 (79) 100 02/26/19 03:00 23 Mechanical Ventilator 40 02/26/19 02:54 68 24 40 02/26/19 02:30 65 20 153/51 (85) 99 02/26/19 02:00 67 20 123/72 (89) 99 02/26/19 02:00 22 Mechanical Ventilator 40 02/26/19 01:30 63 24 118/67 (84) 99 02/26/19 01:05 65 24 40 02/26/19 01:00 66 20 124/68 (86) 98 02/26/19 01:00 24 Mechanical Ventilator 40 02/26/19 00:30 66 12 109/60 (76) 97 02/26/19 00:00 40 02/26/19 00:00 97.2 63 24 114/52 (72) 97 02/26/19 00:00 Mechanical Ventilator Mechanical Ventilator 02/26/19 00:00 24 Mechanical Ventilator 40 02/26/19 00:00 109/60 02/26/19 00:00 63 02/25/19 23:30 62 20 113/52 (72) 97 02/25/19 23:00 63 22 112/55 (74) 98 02/25/19 23:00 24 Mechanical Ventilator 40 02/25/19 22:58 63 24 40 02/25/19 22:30 63 23 109/59 (76) 99 02/25/19 22:00 66 15 130/74 (92) 98 02/25/19 22:00 24 Mechanical Ventilator 40 02/25/19 21:30 69 19 134/61 (85) 99 02/25/19 21:12 78 25 40 02/25/19 21:11 69 122/57 02/25/19 21:11 122/57 02/25/19 21:00 122/57 02/25/19 21:00 24 Mechanical Ventilator 40 02/25/19 21:00 71 15 122/57 (78) 96 02/25/19 20:30 68 16 120/74 (89) 100 02/25/19 20:00 97.7 68 18 109/65 (80) 100 02/25/19 20:00 24 Mechanical Ventilator 40 02/25/19 20:00 40 02/25/19 20:00 Mechanical Ventilator Mechanical Ventilator 02/25/19 20:00 68 02/25/19 19:30 69 17 94/79 (84) 99 02/25/19 19:14 24 Mechanical Ventilator 40 02/25/19 19:11 70 28 40 02/25/19 19:00 69 16 110/64 (79) 99 02/25/19 19:00 24 Mechanical Ventilator 40 02/25/19 18:00 24 Mechanical Ventilator 40 02/25/19 18:00 67 15 124/72 (89) 100 02/25/19 17:11 110/55 02/25/19 17:00 Mechanical Ventilator 40 02/25/19 17:00 69 19 124/65 (84) 100 02/25/19 16:35 71 27 40 02/25/19 16:00 97.6 69 19 128/76 (93) 100 02/25/19 16:00 62 02/25/19 16:00 Mechanical Ventilator Mechanical Ventilator 02/25/19 16:00 24 Mechanical Ventilator 40 02/25/19 16:00 40 02/25/19 15:00 Mechanical Ventilator 40 02/25/19 15:00 61 24 110/55 (73) 100 02/25/19 14:55 61 24 40 02/25/19 14:00 68 24 113/64 (80) 100 02/25/19 14:00 Mechanical Ventilator 40 02/25/19 13:10 115/56 02/25/19 13:00 66 24 113/76 (88) 100 02/25/19 13:00 20 Mechanical Ventilator 40 02/25/19 12:52 65 24 40 02/25/19 12:45 115/56 02/25/19 12:00 40 02/25/19 12:00 Mechanical Ventilator Mechanical Ventilator 02/25/19 12:00 96.8 65 24 114/63 (80) 100 02/25/19 12:00 Mechanical Ventilator 40 02/25/19 12:00 65 02/25/19 11:00 24 Mechanical Ventilator 40 02/25/19 11:00 65 24 115/56 (75) 100 02/25/19 10:31 67 24 40 02/25/19 10:13 72 26 40 02/25/19 10:00 72 20 131/94 (106) 100 02/25/19 10:00 24 Mechanical Ventilator 40 02/25/19 09:18 99 02/25/19 09:18 75 11 40 02/25/19 09:00 75 20 120/64 (82) 100 02/25/19 09:00 24 Mechanical Ventilator 40 02/25/19 08:57 63 110/65 02/25/19 08:56 63 122/65 Intake and Output 02/25/19 02/26/19 19:00 07:00 Intake Total 2359.832 ml 1319.000 ml Output Total 885 ml 1790 ml Balance 1474.832 ml -471.000 ml Free Water 120 ml IV Total 1909.832 ml 1009.000 ml Tube Feeding 330 ml 310 ml Output Urine Total 885 ml 1790 ml Laboratory Tests 02/25/19 10:00: Arterial Blood pH 7.249*L, Arterial Blood Partial Pressure CO2 48.0H, Arterial Blood Partial Pressure O2 77.5, Arterial Blood HCO3 20.5L, Arterial Blood Oxygen Saturation 92.6L, Arterial Blood Base Excess -6.5L, Benny Test Positive 02/26/19 04:22: White Blood Count 5.9, Red Blood Count 3.06L, Hemoglobin 8.7L, Hematocrit 27.1L , Mean Corpuscular Volume 89, Mean Corpuscular Hemoglobin 28.6, Mean Corpuscular Hemoglobin Concent 32.2, Red Cell Distribution Width 16.7H, Platelet Count 180, Mean Platelet Volume 6.3L, Neutrophils (%) (Auto) , Lymphocytes (%) (Auto) , Monocytes (%) (Auto) , Eosinophils (%) (Auto) , Basophils (%) (Auto) , Sodium Level 129L, Potassium Level 5.5H, Chloride Level 97L, Carbon Dioxide Level 22, Anion Gap 10, Blood Urea Nitrogen 72H, Creatinine 3.0H, Estimat Glomerular Filtration Rate 21.5, Glucose Level 93, Calcium Level 8.1L, Phosphorus Level 5.5H, Magnesium Level 2.3, Total Bilirubin 0.4, Aspartate Amino Transf (AST/SGOT) 64H, Alanine Aminotransferase (ALT/SGPT) 54, Alkaline Phosphatase 108, Total Protein 5.8L, Albumin 2.6L, Globulin 3.2, Albumin/Globulin Ratio 0.8L Height (Feet): 6 Height (Inches): 0.00 Weight (Pounds): 269 General Appearance: no apparent distress EENT: normal ENT inspection Neck: supple Cardiovascular: normal rate Respiratory/Chest: decreased breath sounds Abdomen: normal bowel sounds, non tender, soft Extremities: non-tender Kg Ricketts MD Feb 26, 2019 08:11
[2019-02-26] MEDS: Metoclopramide 10mg/2ml Inj IVP SCH ×2 (08:46→16:29)
[2019-02-26] MEDS: TENOFOVIR DISOPROXIL FUMARATE 300 MG ORAL SCH (08:47)
[2019-02-26] MEDS: Solu-MEDROL 40mg Inj IVP SCH (08:47)
[2019-02-26] MEDS: SULFAMETHOXAZOLE IV SCH ×2 (08:47→16:29)
[2019-02-26] MEDS: Docusate 100mg/10ml Liq GT SCH ×3 (08:47→17:41)
[2019-02-26] MEDS: ETRAVIRINE 200 MG ORAL SCH (08:47)
[2019-02-26] MEDS: TRIMETHOPRIM IV SCH ×2 (08:47→16:29)
[2019-02-26] MEDS: RALTEGRAVIR 400 MG ORAL SCH ×2 (08:47→17:40)
[2019-02-26] MEDS: D5W IV SCH ×2 (08:47→16:29)
[2019-02-26] MEDS: guaiFENesin ER 600mg tab ORAL SCH ×2 (08:48→17:41)
[2019-02-26] MEDS: Sennosides 8.6mg tab ORAL SCH (08:48)
[2019-02-26] MEDS: Pantoprazole Inj IVP SCH (08:49)
[2019-02-26] MEDS ORDERED: Levemir Flexpen SUBQ SCH (09:00)
[2019-02-26] MEDS: Piperacillin/Tazobactam 3.375 GM in NS 110 ML IVPB SCH ×2 (09:16→20:29)
--- NOTE | 2019-02-26 09:30 | NUR ---
NURSE NOTES: Blood pressure 135/68, HR 72, RR 24, oxygen saturation 98%. Patient restless and given Ativan 2mg IV at this time rather than increasing the fentanyl drip which remains at 300mcg/hr at this time. Patient still restless after Ativan administration. Patient given bed bath to make him more comfortable. Oral care and repositioning performed at this time. Rectal tube irrigated with sterile water at this time. Dr Costa rounded on the patient and stated that the Ritesh needs to be removed. Will follow up with primary MD to gain MD consent for PICC line placement. Dr Ricketts called to check on the patient and was given an update on the patient's condition. NO new orders received.
[2019-02-26] MEDS ORDERED: NaCl 3% 500ml 250 ML IV ONE (10:00)
--- NOTE | 2019-02-26 10:43 | NUR ---
RD ASSESSMENT & RECOMMENDATIONS SEE CARE ACTIVITY FOR COMPLETE ASSESSMENT DAILY ESTIMATED NEEDS: Needs based on Critical care, HIV 85kg adj 22-30 kcals/kg 3473-7933 total kcals 1.2-2 g protein/kg 102-170 g total protein 25-30 mL/kg 6437-4214 total fluid mLs NUTRITION DIAGNOSIS: *Swallowing difficulty r/t respiratory status as evidenced by pt on bipap, desat to 78%, critical ABG results, now orally intubated, ICU status. * Altered nutrition related lab values R/T clinical condition, ISH, DM as evidenced by elev K (5.8- now wnl->5.5), elev creat (1.5->3.9->2.6 ->3.0 back up), elev phos (5.5), A1C 7.0. CURRENT TF:Glucerna 1.2 @ 55ml/hr x 24 hrs ENTERAL NUTRITION RECOMMENDATIONS: Nepro @ 43ml/hr x 24 hrs + Prosource 1pkt BID to provide 1032ml, 1857 kcal (+80 kcal), 83g prot (+22g prot), 750ml free water - Rec TF change to Nepro : elev K and phos - Initiate Nepro @ 23ml/hr x 6 hrs - Advance 5ml q 4-6 hrs as tolerated to goal - Once TF well tolerated: add Prosource 1pkt BID for additional 80kcal/22g prot to meet 100% est kcal/prot needs - Flush per MD/ HOB over 30 degrees. ADDITIONAL RECOMMENDATIONS: 1) CALIBRATED BEDSCALE WT, weeklye wts 2) Monitor renal fxn, K and Phos- elev K and phos * Rec TF change to Nepro at this time 3) Monitor BGs closely while on solumedrol 4) Monitor TF tolerance -> Now on reglan . .
--- NOTE | 2019-02-26 11:41 | General Progress Note ---
Assessment/Plan Status: stable Assessment/Plan: 58 y Male admitted to the hospital due to fever, shortness of breath and chest pain. # Multilobar pneumonia in patient with HIV - Broad sp atbx started. Continue Zosyn, Vancomycin, Azithromycin, TM-SMX - Fluconazole per ID - Droplet precaution - Flu swab ordered. - Oxygen support, ventilatory support as not able to wean off ventilator due to agitation. Consider change of sedation agent from Fentanyl to Versed if indicated. - ID consult appreciated. Discussed today and monitor renal function as possibly change in creatinine due to TM-SMX -Pt in need of PICC line, mother unable to give consent 2/2 dementia, will do 2 physician consent # Hypoxemic respiratory failure - Critical care follow up. Unable to wean off the ventilatior. - Possible need for tracheostomy in the future. - Due to pneumonia poss pjp # Chest pain - EKG with bifascicular block RBB and LAFB, no ST changes. - Trend troponin x3 completed - ECHO completed with no WMA and preserved EF. Dr. Francois consulted. Consideration for outpatient cath vs possibly myocarditis due to underlying viral infection. No evidence of Takotsubo per TTE. - NGT prn - Pain control with morphine # HIV - Continue HARRT - VL is undetectable per patient report. T cell count > 400 - CD 4 count 191 # HTN - Resume home medication - Clonidine, Isordil added today. # [place] hyponatremia - Monitor - good response to NS # CKD 2-3 - Trend renal function - Worsening creatinine to 2.9 today. 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 Calabrese who will arrange to dc L femoral access, place PICC today and if need be new dialysis catheter will be placed by surgery. DVT and GI ppx Full code A total of 35 mins of critical care time was spent on this patient, dealing with hypoxemic resp failure requiring continuous mechanical ventilation, reviewing telemetry data, discussion with bedside AGRICULTURE PROFESSOR Subjective Date patient seen: Feb 26, 2019 Allergies: Coded Allergies: No Known Allergies (Unverified , 02/05/13) Subjective Pt remains intubated and sedated, plan for PICC line placement today, will remove femoral cvc after Objective Last 24 Hour Vital Signs Date Time Temp Pulse Resp B/P (MAP) Pulse Ox O2 Delivery O2 Flow Rate FiO2 02/26/19 11:22 65 24 40 02/26/19 11:00 66 24 121/55 (77) 97 02/26/19 11:00 24 Mechanical Ventilator 40 02/26/19 10:30 66 24 121/55 (77) 98 02/26/19 10:00 24 Mechanical Ventilator 40 02/26/19 10:00 66 24 122/94 (103) 98 02/26/19 09:30 68 24 135/58 (83) 98 02/26/19 09:21 75 28 40 02/26/19 09:00 73 24 128/102 (111) 98 02/26/19 09:00 24 Mechanical Ventilator 40 02/26/19 08:49 127/60 02/26/19 08:48 72 127/60 02/26/19 08:48 72 127/60 02/26/19 08:30 71 24 139/72 (94) 98 02/26/19 08:00 Mechanical Ventilator Mechanical Ventilator 02/26/19 08:00 97.6 70 24 123/57 (79) 97 02/26/19 08:00 71 02/26/19 08:00 24 Mechanical Ventilator 40 02/26/19 08:00 40 02/26/19 07:30 69 24 142/66 (91) 97 02/26/19 07:03 63 24 40 02/26/19 07:00 69 24 123/63 (83) 97 02/26/19 07:00 24 Mechanical Ventilator 40 02/26/19 06:30 62 23 107/49 (68) 97 02/26/19 06:00 22 Mechanical Ventilator 40 02/26/19 06:00 64 18 111/49 (69) 98 02/26/19 05:44 117/56 02/26/19 05:44 117/56 02/26/19 05:30 66 17 117/56 (76) 100 02/26/19 05:16 67 24 40 02/26/19 05:00 68 19 122/63 (82) 99 02/26/19 05:00 24 Mechanical Ventilator 40 02/26/19 04:34 24 Mechanical Ventilator 40 02/26/19 04:30 66 24 128/65 (86) 99 02/26/19 04:00 65 02/26/19 04:00 24 Mechanical Ventilator 40 02/26/19 04:00 40 02/26/19 04:00 97.5 68 19 129/67 (87) 99 02/26/19 04:00 Mechanical Ventilator Mechanical Ventilator 02/26/19 03:30 66 14 124/71 (88) 99 02/26/19 03:00 67 19 119/59 (79) 100 02/26/19 03:00 23 Mechanical Ventilator 40 02/26/19 02:54 68 24 40 02/26/19 02:30 65 20 153/51 (85) 99 02/26/19 02:00 67 20 123/72 (89) 99 02/26/19 02:00 22 Mechanical Ventilator 40 02/26/19 01:30 63 24 118/67 (84) 99 02/26/19 01:05 65 24 40 02/26/19 01:00 66 20 124/68 (86) 98 02/26/19 01:00 24 Mechanical Ventilator 40 02/26/19 00:30 66 12 109/60 (76) 97 02/26/19 00:00 40 02/26/19 00:00 97.2 63 24 114/52 (72) 97 02/26/19 00:00 Mechanical Ventilator Mechanical Ventilator 02/26/19 00:00 24 Mechanical Ventilator 40 02/26/19 00:00 109/60 02/26/19 00:00 63 02/25/19 23:30 62 20 113/52 (72) 97 02/25/19 23:00 63 22 112/55 (74) 98 02/25/19 23:00 24 Mechanical Ventilator 40 02/25/19 22:58 63 24 40 02/25/19 22:30 63 23 109/59 (76) 99 02/25/19 22:00 66 15 130/74 (92) 98 02/25/19 22:00 24 Mechanical Ventilator 40 02/25/19 21:30 69 19 134/61 (85) 99 02/25/19 21:12 78 25 40 02/25/19 21:11 69 122/57 02/25/19 21:11 122/57 02/25/19 21:00 122/57 02/25/19 21:00 24 Mechanical Ventilator 40 02/25/19 21:00 71 15 122/57 (78) 96 02/25/19 20:30 68 16 120/74 (89) 100 02/25/19 20:00 97.7 68 18 109/65 (80) 100 02/25/19 20:00 24 Mechanical Ventilator 40 02/25/19 20:00 40 02/25/19 20:00 Mechanical Ventilator Mechanical Ventilator 02/25/19 20:00 68 02/25/19 19:30 69 17 94/79 (84) 99 02/25/19 19:14 24 Mechanical Ventilator 40 02/25/19 19:11 70 28 40 02/25/19 19:00 69 16 110/64 (79) 99 02/25/19 19:00 24 Mechanical Ventilator 40 02/25/19 18:00 24 Mechanical Ventilator 40 02/25/19 18:00 67 15 124/72 (89) 100 02/25/19 17:11 110/55 02/25/19 17:00 Mechanical Ventilator 40 02/25/19 17:00 69 19 124/65 (84) 100 02/25/19 16:35 71 27 40 02/25/19 16:00 97.6 69 19 128/76 (93) 100 02/25/19 16:00 62 02/25/19 16:00 Mechanical Ventilator Mechanical Ventilator 02/25/19 16:00 24 Mechanical Ventilator 40 02/25/19 16:00 40 02/25/19 15:00 Mechanical Ventilator 40 02/25/19 15:00 61 24 110/55 (73) 100 02/25/19 14:55 61 24 40 02/25/19 14:00 68 24 113/64 (80) 100 02/25/19 14:00 Mechanical Ventilator 40 02/25/19 13:10 115/56 02/25/19 13:00 66 24 113/76 (88) 100 02/25/19 13:00 20 Mechanical Ventilator 40 02/25/19 12:52 65 24 40 02/25/19 12:45 115/56 02/25/19 12:00 40 02/25/19 12:00 Mechanical Ventilator Mechanical Ventilator 02/25/19 12:00 96.8 65 24 114/63 (80) 100 02/25/19 12:00 Mechanical Ventilator 40 02/25/19 12:00 65 Intake and Output 02/25/19 02/26/19 19:00 07:00 Intake Total 2359.832 ml 1319.000 ml Output Total 885 ml 1790 ml Balance 1474.832 ml -471.000 ml Free Water 120 ml IV Total 1909.832 ml 1009.000 ml Tube Feeding 330 ml 310 ml Output Urine Total 885 ml 1790 ml Laboratory Tests 02/26/19 04:22: White Blood Count 5.9, Red Blood Count 3.06L, Hemoglobin 8.7L, Hematocrit 27.1L , Mean Corpuscular Volume 89, Mean Corpuscular Hemoglobin 28.6, Mean Corpuscular Hemoglobin Concent 32.2, Red Cell Distribution Width 16.7H, Platelet Count 180, Mean Platelet Volume 6.3L, Neutrophils (%) (Auto) , Lymphocytes (%) (Auto) , Monocytes (%) (Auto) , Eosinophils (%) (Auto) , Basophils (%) (Auto) , Sodium Level 129L, Potassium Level 5.5H, Chloride Level 97L, Carbon Dioxide Level 22, Anion Gap 10, Blood Urea Nitrogen 72H, Creatinine 3.0H, Estimat Glomerular Filtration Rate 21.5, Glucose Level 93, Calcium Level 8.1L, Phosphorus Level 5.5H, Magnesium Level 2.3, Total Bilirubin 0.4, Aspartate Amino Transf (AST/SGOT) 64H, Alanine Aminotransferase (ALT/SGPT) 54, Alkaline Phosphatase 108, Total Protein 5.8L, Albumin 2.6L, Globulin 3.2, Albumin/Globulin Ratio 0.8L Height (Feet): 6 Height (Inches): 0.00 Weight (Pounds): 269 Objective General Appearance: intubated, no agitation EENT: intubated Neck: non-tender, normal alignment Cardiovascular: normal peripheral pulses, normal rate Respiratory/Chest: chest wall non-tender, lungs clear Abdomen: normal bowel sounds, non tender Extremities: normal range of motion, non-tender Edema: trace edema Neurologic: radio mechanic helper II-XII grossly normal Sonja Douglas MD Feb 26, 2019 11:40
[2019-02-26] MEDS ORDERED: Sodium Polystyrene Sulfon/Sorb 15gm/60ml Susp ORAL SCH (11:45)
--- NOTE | 2019-02-26 12:00 | NUR ---
NURSE NOTES: Patient sleeping with RASS score of +2 at this time on Fentanyl drip at 300mcg/hr. Patient lower sclera still swollen on bilateral eyes but resolving. Patient has two physician consent for PICC which will be placed later today. Will follow up with radiology. Patient received Kayexalate 30gm for potassium of 5.[address] Mcdonald, Dr Douglas, and Dr Meredith all came to see the patient. All given an update on the patient's condition this morning. Patient bed in low position with bed alarm on and call light in reach at this time. Will notify Dr Costa when PICC has been inserted so that he can remove the left femoral Ritesh. Blood pressure 117/63, HR 66, SpO2 97%, and temp 97.8.
--- NOTE | 2019-02-26 12:17 | Pulmonolgy Critical Care Note ---
Critical Care - Asmt/Plan Problems: (1) Endotracheally intubated (2) Acute hypoxemic respiratory failure (3) Pneumonia (4) NSTEMI (non-ST elevated myocardial infarction) (5) AIDS (6) HIV disease (7) Hypertension (8) MDD (major depressive disorder), recurrent episode, moderate (9) Anemia (10) CKD (chronic kidney disease) (11) History of stroke (12) Diabetes (13) Anxiety (14) Malignant hypertension Assessment/Plan: VDRF, extubated 02/19, re-intubated 02/20 Hemoptysis, hematemesis ARDS Acute respiratory failure B pulmonary infiltrates, ? multilobar CAP vs atypical infection vs other ? PJP AIDS (CD4 191) NSTEMI H/O prior CVA HTN HL DM with uncontrolled BS ISH on CKD Anemia PLAN: Continue ventilatory support/settings reviewed SBT as able Will likely need trach CXR & ABG ordered Keep PEEP 5, titrate down FiO2 to keep SaO2 > 90% RTC and PRN HHN's Continue Abx per ID (TMP/SMX, Zosyn) + flucon per ID D/C SM Monitor volumes and renal function, F/U renal recs, diurese as able D/C fem CVC, place PICC - needs access, no family to consent F/U cards recs: will need further ischemia eval/cath once stabilized DVT Px: Start hep SQ Monitor for bleeding F/U ENDO recs TF's as celestino FC, continue to discuss GOC D/W RN and RT @ bedside CCT 45 Critical Care - Objective Last 24 Hour Vital Signs Date Time Temp Pulse Resp B/P (MAP) Pulse Ox O2 Delivery O2 Flow Rate FiO2 02/26/19 11:30 118/52 02/26/19 11:22 65 24 40 02/26/19 11:00 66 24 121/55 (77) 97 02/26/19 11:00 24 Mechanical Ventilator 40 02/26/19 10:30 66 24 121/55 (77) 98 02/26/19 10:00 24 Mechanical Ventilator 40 02/26/19 10:00 66 24 122/94 (103) 98 02/26/19 09:30 68 24 135/58 (83) 98 02/26/19 09:21 75 28 40 02/26/19 09:00 73 24 128/102 (111) 98 02/26/19 09:00 24 Mechanical Ventilator 40 02/26/19 08:49 127/60 02/26/19 08:48 72 127/60 02/26/19 08:48 72 127/60 02/26/19 08:30 71 24 139/72 (94) 98 02/26/19 08:00 Mechanical Ventilator Mechanical Ventilator 02/26/19 08:00 97.6 70 24 123/57 (79) 97 02/26/19 08:00 71 02/26/19 08:00 24 Mechanical Ventilator 40 02/26/19 08:00 40 02/26/19 07:30 69 24 142/66 (91) 97 02/26/19 07:03 63 24 40 02/26/19 07:00 69 24 123/63 (83) 97 02/26/19 07:00 24 Mechanical Ventilator 40 02/26/19 06:30 62 23 107/49 (68) 97 02/26/19 06:00 22 Mechanical Ventilator 40 02/26/19 06:00 64 18 111/49 (69) 98 02/26/19 05:44 117/56 02/26/19 05:44 117/56 02/26/19 05:30 66 17 117/56 (76) 100 02/26/19 05:16 67 24 40 02/26/19 05:00 68 19 122/63 (82) 99 02/26/19 05:00 24 Mechanical Ventilator 40 02/26/19 04:34 24 Mechanical Ventilator 40 02/26/19 04:30 66 24 128/65 (86) 99 02/26/19 04:00 65 02/26/19 04:00 24 Mechanical Ventilator 40 02/26/19 04:00 40 02/26/19 04:00 97.5 68 19 129/67 (87) 99 02/26/19 04:00 Mechanical Ventilator Mechanical Ventilator 02/26/19 03:30 66 14 124/71 (88) 99 02/26/19 03:00 67 19 119/59 (79) 100 02/26/19 03:00 23 Mechanical Ventilator 40 02/26/19 02:54 68 24 40 02/26/19 02:30 65 20 153/51 (85) 99 02/26/19 02:00 67 20 123/72 (89) 99 02/26/19 02:00 22 Mechanical Ventilator 40 02/26/19 01:30 63 24 118/67 (84) 99 02/26/19 01:05 65 24 40 02/26/19 01:00 66 20 124/68 (86) 98 02/26/19 01:00 24 Mechanical Ventilator 40 02/26/19 00:30 66 12 109/60 (76) 97 02/26/19 00:00 40 02/26/19 00:00 97.2 63 24 114/52 (72) 97 02/26/19 00:00 Mechanical Ventilator Mechanical Ventilator 02/26/19 00:00 24 Mechanical Ventilator 40 02/26/19 00:00 109/60 02/26/19 00:00 63 02/25/19 23:30 62 20 113/52 (72) 97 02/25/19 23:00 63 22 112/55 (74) 98 02/25/19 23:00 24 Mechanical Ventilator 40 02/25/19 22:58 63 24 40 02/25/19 22:30 63 23 109/59 (76) 99 02/25/19 22:00 66 15 130/74 (92) 98 02/25/19 22:00 24 Mechanical Ventilator 40 02/25/19 21:30 69 19 134/61 (85) 99 02/25/19 21:12 78 25 40 02/25/19 21:11 69 122/57 02/25/19 21:11 122/57 02/25/19 21:00 122/57 02/25/19 21:00 24 Mechanical Ventilator 40 02/25/19 21:00 71 15 122/57 (78) 96 02/25/19 20:30 68 16 120/74 (89) 100 02/25/19 20:00 97.7 68 18 109/65 (80) 100 02/25/19 20:00 24 Mechanical Ventilator 40 02/25/19 20:00 40 02/25/19 20:00 Mechanical Ventilator Mechanical Ventilator 02/25/19 20:00 68 02/25/19 19:30 69 17 94/79 (84) 99 02/25/19 19:14 24 Mechanical Ventilator 40 02/25/19 19:11 70 28 40 02/25/19 19:00 69 16 110/64 (79) 99 02/25/19 19:00 24 Mechanical Ventilator 40 7/7/19 18:00 24 Mechanical Ventilator 40 02/25/19 18:00 67 15 124/72 (89) 100 02/25/19 17:11 110/55 02/25/19 17:00 Mechanical Ventilator 40 02/25/19 17:00 69 19 124/65 (84) 100 02/25/19 16:35 71 27 40 02/25/19 16:00 97.6 69 19 128/76 (93) 100 02/25/19 16:00 62 02/25/19 16:00 Mechanical Ventilator Mechanical Ventilator 02/25/19 16:00 24 Mechanical Ventilator 40 02/25/19 16:00 40 02/25/19 15:00 Mechanical Ventilator 40 02/25/19 15:00 61 24 110/55 (73) 100 02/25/19 14:55 61 24 40 02/25/19 14:00 68 24 113/64 (80) 100 02/25/19 14:00 Mechanical Ventilator 40 02/25/19 13:10 115/56 02/25/19 13:00 66 24 113/76 (88) 100 02/25/19 13:00 20 Mechanical Ventilator 40 02/25/19 12:52 65 24 40 02/25/19 12:45 115/56 Status: sedated Condition: critical HEENT: atraumatic, normocephalic Lungs: rhonchi Heart: HR/BP stable Abdomen: soft, non-tender, active bowel sounds Extremities: no C/C/E Accucheck: 157 Blood Sugars: BS controlled Critical Care - Subjective ROS Limited/Unobtainable: Yes ICU Day: 21 Intubation Day: 5 Interval Events: JOSE Sedated on vent No sig secretions Condition: critical IV Access: central - R fem CVC EKG Rhythm: Sinus Rhythm FI02: 40 Vent Support Breath Rate: 24 Vent Support Mode: AC Vent Tidal Volume: 550 Sputum Amount: Small PEEP: 5.0 PIP: 36 Secretions: none Fluids: SLIV Drips: Fent gtt Tube Feeding Amount: 35 I&O: Intake and Output 02/25/19 02/26/19 19:00 07:00 Intake Total 2359.832 ml 1319.000 ml Output Total 885 ml 1790 ml Balance 1474.832 ml -471.000 ml Free Water 120 ml IV Total 1909.832 ml 1009.000 ml Tube Feeding 330 ml 310 ml Output Urine Total 885 ml 1790 ml Subjective: CONRAD ET-Tube: 7.5 ET Position: 24 Labs: Laboratory Tests Test 02/26/19 04:22 White Blood Count 5.9 K/UL (4.8-10.8) Red Blood Count 3.06 M/UL (4.70-6.10) L Hemoglobin 8.7 G/DL (14.2-18.0) L Hematocrit 27.1 % (42.0-52.0) L Mean Corpuscular Volume 89 FL (80-99) Mean Corpuscular Hemoglobin 28.6 PG (27.0-31.0) Mean Corpuscular Hemoglobin Concent 32.2 G/DL (32.0-36.0) Red Cell Distribution Width 16.7 % (11.6-14.8) H Platelet Count 180 K/UL (150-450) Mean Platelet Volume 6.3 FL (6.5-10.1) L Neutrophils (%) (Auto) % (45.0-75.0) Lymphocytes (%) (Auto) % (20.0-45.0) Monocytes (%) (Auto) % (1.0-10.0) Eosinophils (%) (Auto) % (0.0-3.0) Basophils (%) (Auto) % (0.0-2.0) Sodium Level 129 MMOL/L (136-145) L Potassium Level 5.5 MMOL/L (3.5-5.1) H Chloride Level 97 MMOL/L (98-107) L Carbon Dioxide Level 22 MMOL/L (21-32) Anion Gap 10 mmol/L (5-15) Blood Urea Nitrogen 72 mg/dL (7-18) H Creatinine 3.0 MG/DL (0.55-1.30) H Estimat Glomerular Filtration Rate 21.5 mL/min (>60) Glucose Level 93 MG/DL (74-106) Calcium Level 8.1 MG/DL (8.5-10.1) L Phosphorus Level 5.5 MG/DL (2.5-4.9) H Magnesium Level 2.3 MG/DL (1.8-2.4) Total Bilirubin 0.4 MG/DL (0.2-1.0) Aspartate Amino Transf (AST/SGOT) 64 U/L (15-37) H Alanine Aminotransferase (ALT/SGPT) 54 U/L (12-78) Alkaline Phosphatase 108 U/L (46-116) Total Protein 5.8 G/DL (6.4-8.2) L Albumin 2.6 G/DL (3.4-5.0) L Globulin 3.2 g/dL Albumin/Globulin Ratio 0.8 (1.0-2.7) L Brett Meredith MD Feb 26, 2019 12:17
[2019-02-26] MEDS ORDERED: Albuterol/Ipratropium 3ml neb HHN PRN (12:30)
[2019-02-26] MEDS: Albuterol/Ipratropium 3ml neb HHN SCH ×2 (12:41→19:12)
--- NOTE | 2019-02-26 14:00 | NUR ---
NURSE NOTES: Blood pressure 127/55, HR 69, temp 97.8, oxygen saturation 98%. Patient tolerating ventilator setting without sign of distress. Patient Simon draining well with pink urine with some elke blood. Patient still has NGT gastric residual of >100mL at this time. Patient given Kayexalate earlier and most of residual is this medication. Will continue to monitor and restart feeding when possible. Dr Tony came to see the patient. Patient condition discussed with doctor. Patient bed in low position with bed alarm on and call light in reach.
--- NOTE | 2019-02-26 14:34 | Infectious Diseases Prog Note ---
Assessment/Plan Assessment/Plan A) 1) pneumonia - ? new aspiration/hcap, ? CAP, ? pcp, ? fungal (cryptococcus/ cocci), sepsis, leukocytosis, ? line infection, ARDS, chf/edema 2) intubated on vent, s/p bronchoscopy, ARF, ? 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, on anti-retroviral treatment 4) rule out TB pna, in isolation - afb smear on bronchoscopy is negative, TB spot negative 5) pmh noted - hypertension, ckd, anemia, dm, cva, tia, migraines 6) allergies - nkda, sh-negative, fh-nc, mar noted 7) d/w RN P) 1) zosyn, iv bactrim (12/12/18), diflucan 2) leukocytosis better, monitor labs and chest x-ray, no fevers, no pressors 3) diarrhea but on stool softeners 4) weaning per pulmonary medicine 5) icu supportive care, vent support 6) skin care per protocol 7) d/w RN Subjective Constitutional: Reports: fatigue, other - + vent; Denies: fever HEENT: Reports: congestion Respiratory: Reports: shortness of breath Cardiovascular: Reports: other - no pressors Gastrointestinal/Abdominal: Denies: nausea, vomiting, diarrhea Genitourinary: Reports: other - + smith - good uo per grid trimmer: Reports: other - NA Skin: Denies: rash Hematologic: Denies: bleeding Musculoskeletal: Reports: other - NA Allergies: Coded Allergies: No Known Allergies (Unverified , 02/05/13) Objective Vital Signs Last 24 Hour Vital Signs Date Time Temp Pulse Resp B/P (MAP) Pulse Ox O2 Delivery O2 Flow Rate FiO2 02/26/19 13:40 115/51 02/26/19 13:38 24 40 02/26/19 13:00 66 24 115/55 (75) 96 02/26/19 12:53 70 24 98 Mechanical Ventilator 75.0 40 02/26/19 12:44 67 24 40 02/26/19 12:41 66 24 97 Mechanical Ventilator 75.0 40 02/26/19 12:30 65 24 117/63 (81) 97 02/26/19 12:00 71 02/26/19 12:00 40 02/26/19 12:00 24 Mechanical Ventilator 40 02/26/19 12:00 97.8 65 24 117/63 (81) 97 02/26/19 12:00 Mechanical Ventilator Mechanical Ventilator 02/26/19 11:30 65 24 117/52 (73) 97 02/26/19 11:30 118/52 02/26/19 11:22 65 24 40 02/26/19 11:00 66 24 121/55 (77) 97 02/26/19 11:00 24 Mechanical Ventilator 40 02/26/19 10:30 66 24 121/55 (77) 98 02/26/19 10:00 24 Mechanical Ventilator 40 02/26/19 10:00 66 24 122/94 (103) 98 02/26/19 09:30 68 24 135/58 (83) 98 02/26/19 09:21 75 28 40 02/26/19 09:00 73 24 128/102 (111) 98 02/26/19 09:00 24 Mechanical Ventilator 40 02/26/19 08:49 127/60 02/26/19 08:48 72 127/60 02/26/19 08:48 72 127/60 02/26/19 08:30 71 24 139/72 (94) 98 02/26/19 08:00 Mechanical Ventilator Mechanical Ventilator 02/26/19 08:00 97.6 70 24 123/57 (79) 97 02/26/19 08:00 71 02/26/19 08:00 24 Mechanical Ventilator 40 02/26/19 08:00 40 02/26/19 07:30 69 24 142/66 (91) 97 02/26/19 07:03 63 24 40 02/26/19 07:00 69 24 123/63 (83) 97 02/26/19 07:00 24 Mechanical Ventilator 40 02/26/19 06:30 62 23 107/49 (68) 97 02/26/19 06:00 22 Mechanical Ventilator 40 02/26/19 06:00 64 18 111/49 (69) 98 02/26/19 05:44 117/56 02/26/19 05:44 117/56 02/26/19 05:30 66 17 117/56 (76) 100 02/26/19 05:16 67 24 40 02/26/19 05:00 68 19 122/63 (82) 99 02/26/19 05:00 24 Mechanical Ventilator 40 02/26/19 04:34 24 Mechanical Ventilator 40 02/26/19 04:30 66 24 128/65 (86) 99 02/26/19 04:00 65 02/26/19 04:00 24 Mechanical Ventilator 40 02/26/19 04:00 40 02/26/19 04:00 97.5 68 19 129/67 (87) 99 02/26/19 04:00 Mechanical Ventilator Mechanical Ventilator 02/26/19 03:30 66 14 124/71 (88) 99 02/26/19 03:00 67 19 119/59 (79) 100 02/26/19 03:00 23 Mechanical Ventilator 40 02/26/19 02:54 68 24 40 02/26/19 02:30 65 20 153/51 (85) 99 02/26/19 02:00 67 20 123/72 (89) 99 02/26/19 02:00 22 Mechanical Ventilator 40 02/26/19 01:30 63 24 118/67 (84) 99 02/26/19 01:05 65 24 40 02/26/19 01:00 66 20 124/68 (86) 98 02/26/19 01:00 24 Mechanical Ventilator 40 02/26/19 00:30 66 12 109/60 (76) 97 02/26/19 00:00 40 02/26/19 00:00 97.2 63 24 114/52 (72) 97 02/26/19 00:00 Mechanical Ventilator Mechanical Ventilator 02/26/19 00:00 24 Mechanical Ventilator 40 02/26/19 00:00 109/60 02/26/19 00:00 63 02/25/19 23:30 62 20 113/52 (72) 97 02/25/19 23:00 63 22 112/55 (74) 98 02/25/19 23:00 24 Mechanical Ventilator 40 02/25/19 22:58 63 24 40 02/25/19 22:30 63 23 109/59 (76) 99 02/25/19 22:00 66 15 130/74 (92) 98 02/25/19 22:00 24 Mechanical Ventilator 40 02/25/19 21:30 69 19 134/61 (85) 99 02/25/19 21:12 78 25 40 02/25/19 21:11 69 122/57 02/25/19 21:11 122/57 02/25/19 21:00 122/57 02/25/19 21:00 24 Mechanical Ventilator 40 02/25/19 21:00 71 15 122/57 (78) 96 02/25/19 20:30 68 16 120/74 (89) 100 02/25/19 20:00 97.7 68 18 109/65 (80) 100 02/25/19 20:00 24 Mechanical Ventilator 40 02/25/19 20:00 40 02/25/19 20:00 Mechanical Ventilator Mechanical Ventilator 02/25/19 20:00 68 02/25/19 19:30 69 17 94/79 (84) 99 02/25/19 19:14 24 Mechanical Ventilator 40 02/25/19 19:11 70 28 40 02/25/19 19:00 69 16 110/64 (79) 99 02/25/19 19:00 24 Mechanical Ventilator 40 02/25/19 18:00 24 Mechanical Ventilator 40 02/25/19 18:00 67 15 124/72 (89) 100 02/25/19 17:11 110/55 02/25/19 17:00 Mechanical Ventilator 40 02/25/19 17:00 69 19 124/65 (84) 100 02/25/19 16:35 71 27 40 02/25/19 16:00 97.6 69 19 128/76 (93) 100 02/25/19 16:00 62 02/25/19 16:00 Mechanical Ventilator Mechanical Ventilator 02/25/19 16:00 24 Mechanical Ventilator 40 02/25/19 16:00 40 02/25/19 15:00 Mechanical Ventilator 40 02/25/19 15:00 61 24 110/55 (73) 100 02/25/19 14:55 61 24 40 Height (Feet): 6 Height (Inches): 0.00 Weight (Pounds): 269 General Appearance: other - on vent HEENT: normocephalic, atraumatic, anicteric, no JVD Respiratory/Chest: crackles/rales, rhonchi - bilaterally Cardiovascular: normal rate, regular rhythm, no gallop/murmur Abdomen: soft, non tender, no organomegaly Genitourinary: other - smith - urine clear Extremities: no cyanosis Skin: no rash Neurologic/Psychiatric: alert, other - weak, on vent Lymphatic: no neck adenopathy Musculoskeletal: normal muscle bulk Objective Chest x-ray - 02/10/19 - COMPARISON: Chest radiograph on 02/09/2019 FINDINGS: Hardware: Endotracheal tube terminates in the region of the mid thoracic trachea. Enteric tube courses past the diaphragm and out of the field of view. Lungs/pleura: Slightly decreased but persistent patchy consolidations in the right lung. Slightly decreased left perihilar opacities/consolidations. Possible small bilateral pleural effusions. Heart/mediastinum: Stable mild enlargement of the cardiomediastinal silhouette. Soft tissues: Unremarkable. Bones: No acute fracture. Degenerative changes of the visualized right acromioclavicular joint. Degenerative changes of the spine. Upper abdomen: Normal. 02/11/19 - chest x-ray - IMPRESSION: Slightly decreased but persistent patchy consolidations in the right lung. Slightly decreased left perihilar opacities. Findings may IMPRESSION: 1. No significant change in the interstitial and alveolar opacities in bilateral lungs. 2. Possible small bilateral pleural effusions, unchanged. represent infectious/inflammatory process and/or pulmonary edema. Possible small bilateral pleural effusions. 02/16/19 - chest x-ray - Impression: Worsening of aeration with increasing interstitial and bilateral predominantly perihilar airspace disease. Findings likely related to worsening CHF/pulmonary edema. Superimposed pneumonia to be excluded clinically. Follow-up recommended. Chest x-ray - 02/18/19 - COMPARISON: Chest radiograph on 02/16/2019 FINDINGS: Hardware: Endotracheal tube terminates in the region of the mid thoracic trachea. Enteric tube courses past the diaphragm and out of the field of view. Lungs/pleura: Slightly decreased but persistent hazy and interstitial opacities. Persistent small left pleural effusion. Heart/mediastinum: Stable mild enlargement of the cardiomediastinal silhouette. Soft tissues: Unremarkable. Bones: No acute fracture. Upper abdomen: Normal. IMPRESSION: Slightly decreased but persistent changes suggesting pulmonary edema. Component of infectious/inflammatory process is not excluded. Persistent small left pleural effusion. Chest x-ray - 02/20/19 - Procedure: XRAY Chest 1v Indication: Dyspnea Comparison: Earlier same day A single view chest radiograph was obtained. Findings: Intubation noted. The endotracheal tube is in good position about 3 cm above the christal. Cardiomegaly again noted. Moderate pulmonary vascular congestion demonstrated. IMPRESSION: Endotracheal tube in good position. CHF Chest x-ray - - FINDINGS: The tip of the endotracheal tube is appropriately positioned, projecting between the clavicular heads. The sidehole of the enteric tube projects within the stomach. Extensive bilateral consolidation is again noted. Favor multilobar pneumonia. Heart size is borderline, but likely exaggerated by portable technique. No pneumothorax. Bony degenerative changes. IMPRESSION: Extensive airspace consolidation, similar to prior. Favor multilobar pneumonia. Appropriately positioned tubes. Chest x-ray - 02/24/19 - IMPRESSION: No significant interval change compared to the prior chest x-ray. Cardiomegaly with diffuse interstitial and alveolar opacities, which may represent pulmonary edema versus pneumonia. Chest x-ray - 02/26/19 - IMPRESSION: No significant interval change compared to the prior chest x-ray. Cardiomegaly with diffuse interstitial and alveolar opacities, which may represent pulmonary edema versus pneumonia. Microbiology Date/Time Source Procedure Growth Status 02/20/19 19:00 Blood Blood Culture - Final NO GROWTH AFTER 5 DAYS Complete 02/20/19 18:45 Sputum Gram Stain - Final Complete 02/20/19 18:45 Sputum Sputum Culture - Final NO GROWTH AFTER 48 HOURS Complete 02/20/19 18:45 Indwelling Cath Urine Culture - Final NO GROWTH AFTER 48 HOURS Complete 02/06/19 17:10 Rectal Mucosa - Final NO CARBAPENEM-RESISTANT ENTEROBACTERI... Complete Laboratory Tests Test 02/26/19 04:22 02/26/19 12:40 White Blood Count 5.9 K/UL (4.8-10.8) Red Blood Count 3.06 M/UL (4.70-6.10) L Hemoglobin 8.7 G/DL (14.2-18.0) L Hematocrit 27.1 % (42.0-52.0) L Mean Corpuscular Volume 89 FL (80-99) Mean Corpuscular Hemoglobin 28.6 PG (27.0-31.0) Mean Corpuscular Hemoglobin Concent 32.2 G/DL (32.0-36.0) Red Cell Distribution Width 16.7 % (11.6-14.8) H Platelet Count 180 K/UL (150-450) Mean Platelet Volume 6.3 FL (6.5-10.1) L Neutrophils (%) (Auto) % (45.0-75.0) Lymphocytes (%) (Auto) % (20.0-45.0) Monocytes (%) (Auto) % (1.0-10.0) Eosinophils (%) (Auto) % (0.0-3.0) Basophils (%) (Auto) % (0.0-2.0) Sodium Level 129 MMOL/L (136-145) L Potassium Level 5.5 MMOL/L (3.5-5.1) H Chloride Level 97 MMOL/L (98-107) L Carbon Dioxide Level 22 MMOL/L (21-32) Anion Gap 10 mmol/L (5-15) Blood Urea Nitrogen 72 mg/dL (7-18) H Creatinine 3.0 MG/DL (0.55-1.30) H Estimat Glomerular Filtration Rate 21.5 mL/min (>60) Glucose Level 93 MG/DL (74-106) Calcium Level 8.1 MG/DL (8.5-10.1) L Phosphorus Level 5.5 MG/DL (2.5-4.9) H Magnesium Level 2.3 MG/DL (1.8-2.4) Total Bilirubin 0.4 MG/DL (0.2-1.0) Aspartate Amino Transf (AST/SGOT) 64 U/L (15-37) H Alanine Aminotransferase (ALT/SGPT) 54 U/L (12-78) Alkaline Phosphatase 108 U/L (46-116) Total Protein 5.8 G/DL (6.4-8.2) L Albumin 2.6 G/DL (3.4-5.0) L Globulin 3.2 g/dL Albumin/Globulin Ratio 0.8 (1.0-2.7) L Arterial Blood pH 7.374 (7.350-7.450) Arterial Blood Partial Pressure CO2 34.7 mmHg (35.0-45.0) L Arterial Blood Partial Pressure O2 95.3 mmHg (75.0-100.0) Arterial Blood HCO3 19.8 mmol/L (22.0-26.0) L Arterial Blood Oxygen Saturation 96.6 % (95-100) Arterial Blood Base Excess -4.9 (-2-2) L Benny Test Positive Current Medications Medications (Trade) Dose Ordered Sig/Marquis Route PRN Reason Start Time Stop Time Status Last Admin Dose Admin Acetaminophen (Tylenol) 650 mg Q4H PRN ORAL Mild Pain (Pain Scale 1-3) 02/07/19 11:15 03/08/19 17:29 02/22/19 14:37 Acetaminophen/ Butalbital/ Caffeine (Fioricet) 1 tab Q8H PRN ORAL For Headache 02/08/19 17:15 03/10/19 17:14 Albuterol/ Ipratropium (Albuterol/ Ipratropium) 3 ml Q4H PRN HHN Shortness of Breath 02/26/19 12:30 03/03/19 12:29 Albuterol/ Ipratropium (Albuterol/ Ipratropium) 3 ml Q6HRT HHN 02/26/19 13:00 03/03/19 12:59 02/26/19 12:41 Amlodipine Besylate (Norvasc) 10 mg DAILY NG 02/15/19 09:00 03/14/19 15:59 02/26/19 08:48 Artificial Tears (Lacri-Lube) 1 applic AC+HS BOTH EYES 02/18/19 06:30 03/20/19 06:29 02/26/19 11:30 Bisacodyl (Dulcolax) 5 mg DAILYPRN PRN ORAL Constipation 02/08/19 17:15 03/10/19 17:14 02/25/19 12:45 Chlorhexidine Gluconate (Jessy-Hex 2%) 1 applic DAILY@2000 TOPIC 02/25/19 20:00 03/27/19 19:59 02/25/19 20:56 Clonidine HCl (Catapres Tab) 0.1 mg EVERY 12 HOURS NG 02/25/19 21:00 03/19/19 13:59 Dextrose (Dextrose 50%) 25 ml Q30M PRN IV Hypoglycemia 02/26/19 07:30 03/28/19 07:29 Dextrose (Dextrose 50%) 50 ml Q30M PRN IV Hypoglycemia 02/26/19 07:30 03/28/19 07:29 Docusate Sodium (Colace) 100 mg TID GT 02/12/19 18:00 03/12/19 08:59 02/26/19 08:47 Fentanyl Citrate 2500 mcg/Sodium Chloride 250 ml @ 0 mls/hr Q24H IV 02/23/19 20:30 03/02/19 20:29 02/26/19 13:38 Fluconazole/ Sodium Chloride 100 ml @ 100 mls/hr Q24H IV 02/20/19 18:00 02/27/19 17:59 02/25/19 17:11 Guaifenesin (Mucinex ER) 600 mg TWICE A DAY ORAL 02/07/19 18:00 03/09/19 08:59 02/26/19 08:48 Heparin Sodium (Porcine) (Heparin 5000 units/ml) 5,000 units EVERY 12 HOURS SUBQ 02/26/19 21:00 03/28/19 20:59 Heparin Sodium/ Sodium Chloride (Heparin 1000 units/500ml Premix) 1,000 unit ONCE PRN IV picc line placement 02/25/19 14:45 02/27/19 14:44 Hydralazine HCl (Apresoline) 10 mg Q4H PRN IV bp over 165 syst 02/17/19 10:15 03/19/19 10:14 02/19/19 14:45 Hydralazine HCl (Apresoline) 50 mg Q8HR NG 02/22/19 14:00 03/21/19 21:59 02/25/19 21:11 Insulin Aspart (NovoLOG) EVERY 6 HOURS SUBQ 02/26/19 12:00 03/28/19 11:59 02/26/19 12:09 Isosorbide Dinitrate (Isordil) 20 mg Q6HR NG 02/22/19 12:00 03/15/19 12:59 02/26/19 11:30 Lidocaine HCl (Xylocaine 1% 30ml) 30 ml ONCE PRN INJ picc line placement 02/25/19 14:45 02/27/19 14:44 Lorazepam (Ativan 2mg/ml 1ml) 2 mg Q2H PRN IV agitation/restlessness 02/19/19 22:00 02/26/19 21:44 02/26/19 09:15 Lorazepam (Ativan) 1 mg Q4H PRN ORAL For Anxiety 02/19/19 15:15 02/26/19 15:14 02/19/19 15:21 Metoclopramide HCl (Reglan) 5 mg Q8H IVP 02/26/19 09:00 03/28/19 08:59 02/26/19 08:46 Metolazone (Zaroxolyn) 10 mg DAILY NG 02/19/19 10:00 03/21/19 09:59 02/26/19 08:47 Metoprolol Tartrate (Lopressor) 100 mg Q12HR ORAL 02/22/19 21:00 03/08/19 20:59 02/26/19 08:48 Midazolam HCl (Versed 2mg/2ml vial) 1 mg Q2H PRN IVP Agitation 02/13/19 08:45 03/15/19 08:44 02/23/19 05:01 Neomycin/ Polymyxin/ Dexamethasone (Maxitrol Opth Oint) 1 applic BEDTIME BOTH EYES 02/18/19 21:00 03/20/19 20:59 02/25/19 20:56 Nitroglycerin (Ntg) 0.4 mg Q5M PRN SL Prn Chest Pain 02/07/19 11:00 03/08/19 17:29 02/08/19 07:42 Ondansetron HCl (Zofran) 4 mg Q6H PRN IVP Nausea & Vomiting 02/07/19 11:15 03/08/19 11:14 02/09/19 00:58 Pantoprazole (Protonix) 40 mg DAILY IVP 02/26/19 09:00 03/24/19 20:59 02/26/19 08:49 Patient Own Medication (Patient's Own Med) 1 ea BID ORAL 02/07/19 18:00 03/09/19 17:59 02/26/19 08:47 Patient Own Medication (Patient's Own Med) 1 ea Q48H ORAL 02/18/19 09:00 03/20/19 08:59 02/26/19 08:47 Patient Own Medication (Patient's Own Med) 2 ea DAILY ORAL 02/08/19 09:00 03/10/19 08:59 02/26/19 08:47 Piperacillin Sod/ Tazobactam Sod 3.375 gm/Sodium Chloride 110 ml @ 27.5 mls/hr EVERY 12 HOURS IVPB 02/25/19 21:00 03/01/19 21:59 02/26/19 09:16 Polyethylene Glycol (Miralax) 17 gm BEDTIME ORAL 02/08/19 21:00 03/10/19 20:59 02/25/19 20:56 Sennosides (Senokot) 8.6 mg DAILY ORAL 02/13/19 12:00 03/15/19 11:59 02/26/19 08:48 Sodium Chloride 250 ml @ 30 mls/hr ONCE ONCE IV 02/26/19 10:00 02/26/19 18:19 02/26/19 10:33 Trimethoprim/ Sulfamethoxazole 25 ml/Dextrose 575 ml @ 383.333 mls/hr Q8CI-HF BACTRIM IV 02/20/19 12:00 02/27/19 11:59 02/26/19 08:47 Russ Tony MD Feb 26, 2019 14:34
--- NOTE | 2019-02-26 14:35 | Surgery Progress Note ---
Surgery Progress Note Subjective Procedure Performed left femoral temporary Hemodialysis catheter insertion Additional Comments no acute events. afebrile, HD stable, on vent support. abg improved. plan for PICC today will remove femoral line after Objective Last 24 Hour Vital Signs Date Time Temp Pulse Resp B/P (MAP) Pulse Ox O2 Delivery O2 Flow Rate FiO2 02/26/19 14:00 66 24 115/51 (72) 97 02/26/19 14:00 24 Mechanical Ventilator 40 02/26/19 13:40 115/51 02/26/19 13:38 24 40 02/26/19 13:30 66 24 115/51 (72) 97 02/26/19 13:00 66 24 115/55 (75) 96 02/26/19 13:00 24 Mechanical Ventilator 40 02/26/19 12:53 70 24 98 Mechanical Ventilator 75.0 40 02/26/19 12:44 67 24 40 02/26/19 12:41 66 24 97 Mechanical Ventilator 75.0 40 02/26/19 12:30 65 24 117/63 (81) 97 02/26/19 12:00 71 02/26/19 12:00 40 02/26/19 12:00 24 Mechanical Ventilator 40 02/26/19 12:00 97.8 65 24 117/63 (81) 97 02/26/19 12:00 Mechanical Ventilator Mechanical Ventilator 02/26/19 11:30 65 24 117/52 (73) 97 02/26/19 11:30 118/52 02/26/19 11:22 65 24 40 02/26/19 11:00 66 24 121/55 (77) 97 02/26/19 11:00 24 Mechanical Ventilator 40 02/26/19 10:30 66 24 121/55 (77) 98 02/26/19 10:00 24 Mechanical Ventilator 40 02/26/19 10:00 66 24 122/94 (103) 98 02/26/19 09:30 68 24 135/58 (83) 98 02/26/19 09:21 75 28 40 02/26/19 09:00 73 24 128/102 (111) 98 02/26/19 09:00 24 Mechanical Ventilator 40 02/26/19 08:49 127/60 02/26/19 08:48 72 127/60 02/26/19 08:48 72 127/60 7/8/19 08:30 71 24 139/72 (94) 98 02/26/19 08:00 Mechanical Ventilator Mechanical Ventilator 02/26/19 08:00 97.6 70 24 123/57 (79) 97 02/26/19 08:00 71 02/26/19 08:00 24 Mechanical Ventilator 40 02/26/19 08:00 40 02/26/19 07:30 69 24 142/66 (91) 97 02/26/19 07:03 63 24 40 02/26/19 07:00 69 24 123/63 (83) 97 02/26/19 07:00 24 Mechanical Ventilator 40 02/26/19 06:30 62 23 107/49 (68) 97 02/26/19 06:00 22 Mechanical Ventilator 40 02/26/19 06:00 64 18 111/49 (69) 98 02/26/19 05:44 117/56 02/26/19 05:44 117/56 02/26/19 05:30 66 17 117/56 (76) 100 02/26/19 05:16 67 24 40 02/26/19 05:00 68 19 122/63 (82) 99 02/26/19 05:00 24 Mechanical Ventilator 40 02/26/19 04:34 24 Mechanical Ventilator 40 02/26/19 04:30 66 24 128/65 (86) 99 02/26/19 04:00 65 02/26/19 04:00 24 Mechanical Ventilator 40 02/26/19 04:00 40 02/26/19 04:00 97.5 68 19 129/67 (87) 99 02/26/19 04:00 Mechanical Ventilator Mechanical Ventilator 02/26/19 03:30 66 14 124/71 (88) 99 02/26/19 03:00 67 19 119/59 (79) 100 02/26/19 03:00 23 Mechanical Ventilator 40 02/26/19 02:54 68 24 40 02/26/19 02:30 65 20 153/51 (85) 99 02/26/19 02:00 67 20 123/72 (89) 99 02/26/19 02:00 22 Mechanical Ventilator 40 02/26/19 01:30 63 24 118/67 (84) 99 02/26/19 01:05 65 24 40 02/26/19 01:00 66 20 124/68 (86) 98 02/26/19 01:00 24 Mechanical Ventilator 40 02/26/19 00:30 66 12 109/60 (76) 97 02/26/19 00:00 40 02/26/19 00:00 97.2 63 24 114/52 (72) 97 02/26/19 00:00 Mechanical Ventilator Mechanical Ventilator 02/26/19 00:00 24 Mechanical Ventilator 40 02/26/19 00:00 109/60 02/26/19 00:00 63 02/25/19 23:30 62 20 113/52 (72) 97 02/25/19 23:00 63 22 112/55 (74) 98 02/25/19 23:00 24 Mechanical Ventilator 40 02/25/19 22:58 63 24 40 02/25/19 22:30 63 23 109/59 (76) 99 02/25/19 22:00 66 15 130/74 (92) 98 02/25/19 22:00 24 Mechanical Ventilator 40 02/25/19 21:30 69 19 134/61 (85) 99 02/25/19 21:12 78 25 40 02/25/19 21:11 69 122/57 02/25/19 21:11 122/57 02/25/19 21:00 122/57 02/25/19 21:00 24 Mechanical Ventilator 40 02/25/19 21:00 71 15 122/57 (78) 96 02/25/19 20:30 68 16 120/74 (89) 100 02/25/19 20:00 97.7 68 18 109/65 (80) 100 02/25/19 20:00 24 Mechanical Ventilator 40 02/25/19 20:00 40 02/25/19 20:00 Mechanical Ventilator Mechanical Ventilator 02/25/19 20:00 68 02/25/19 19:30 69 17 94/79 (84) 99 02/25/19 19:14 24 Mechanical Ventilator 40 02/25/19 19:11 70 28 40 02/25/19 19:00 69 16 110/64 (79) 99 02/25/19 19:00 24 Mechanical Ventilator 40 02/25/19 18:00 24 Mechanical Ventilator 40 02/25/19 18:00 67 15 124/72 (89) 100 02/25/19 17:11 110/55 02/25/19 17:00 Mechanical Ventilator 40 02/25/19 17:00 69 19 124/65 (84) 100 02/25/19 16:35 71 27 40 02/25/19 16:00 97.6 69 19 128/76 (93) 100 02/25/19 16:00 62 02/25/19 16:00 Mechanical Ventilator Mechanical Ventilator 02/25/19 16:00 24 Mechanical Ventilator 40 02/25/19 16:00 40 02/25/19 15:00 Mechanical Ventilator 40 02/25/19 15:00 61 24 110/55 (73) 100 02/25/19 14:55 61 24 40 I&O Intake and Output 02/25/19 02/26/19 19:00 07:00 Intake Total 2359.832 ml 1319.000 ml Output Total 885 ml 1790 ml Balance 1474.832 ml -471.000 ml Free Water 120 ml IV Total 1909.832 ml 1009.000 ml Tube Feeding 330 ml 310 ml Output Urine Total 885 ml 1790 ml Dressing: saturated Wound: clean Cardiovascular: RSR Respiratory: decreased breath sounds Abdomen: soft, distended, decreased bowel sounds Extremities: edema, no cyanosis, other Laboratory Tests Test 02/26/19 04:22 02/26/19 12:40 White Blood Count 5.9 K/UL (4.8-10.8) Red Blood Count 3.06 M/UL (4.70-6.10) L Hemoglobin 8.7 G/DL (14.2-18.0) L Hematocrit 27.1 % (42.0-52.0) L Mean Corpuscular Volume 89 FL (80-99) Mean Corpuscular Hemoglobin 28.6 PG (27.0-31.0) Mean Corpuscular Hemoglobin Concent 32.2 G/DL (32.0-36.0) Red Cell Distribution Width 16.7 % (11.6-14.8) H Platelet Count 180 K/UL (150-450) Mean Platelet Volume 6.3 FL (6.5-10.1) L Neutrophils (%) (Auto) % (45.0-75.0) Lymphocytes (%) (Auto) % (20.0-45.0) Monocytes (%) (Auto) % (1.0-10.0) Eosinophils (%) (Auto) % (0.0-3.0) Basophils (%) (Auto) % (0.0-2.0) Sodium Level 129 MMOL/L (136-145) L Potassium Level 5.5 MMOL/L (3.5-5.1) H Chloride Level 97 MMOL/L (98-107) L Carbon Dioxide Level 22 MMOL/L (21-32) Anion Gap 10 mmol/L (5-15) Blood Urea Nitrogen 72 mg/dL (7-18) H Creatinine 3.0 MG/DL (0.55-1.30) H Estimat Glomerular Filtration Rate 21.5 mL/min (>60) Glucose Level 93 MG/DL (74-106) Calcium Level 8.1 MG/DL (8.5-10.1) L Phosphorus Level 5.5 MG/DL (2.5-4.9) H Magnesium Level 2.3 MG/DL (1.8-2.4) Total Bilirubin 0.4 MG/DL (0.2-1.0) Aspartate Amino Transf (AST/SGOT) 64 U/L (15-37) H Alanine Aminotransferase (ALT/SGPT) 54 U/L (12-78) Alkaline Phosphatase 108 U/L (46-116) Total Protein 5.8 G/DL (6.4-8.2) L Albumin 2.6 G/DL (3.4-5.0) L Globulin 3.2 g/dL Albumin/Globulin Ratio 0.8 (1.0-2.7) L Arterial Blood pH 7.374 (7.350-7.450) Arterial Blood Partial Pressure CO2 34.7 mmHg (35.0-45.0) L Arterial Blood Partial Pressure O2 95.3 mmHg (75.0-100.0) Arterial Blood HCO3 19.8 mmol/L (22.0-26.0) L Arterial Blood Oxygen Saturation 96.6 % (95-100) Arterial Blood Base Excess -4.9 (-2-2) L Benny Test Positive Plan Problems: (1) Hypoxia Assessment & Plan: Extensive bilateral upper lobe infiltrates likely inflammatory/infectious. Correlate clinically. Tuberculosis is not excludable. Bilateral pleural effusions. Endotracheal tube and nasogastric tube in good position Atherosclerotic vascular disease (2) Respiratory distress Assessment & Plan: intubated on vent support may require trach given failed initial extubation and now difficult to wean (3) Sepsis Assessment & Plan: Sepsis with tachycardia, leukocytosis - resolved, abnormal labs, respiratory distress on vent support via ET tube Cont IV abx CXR noted appreciate ICU team care abnormal lft's US noted will likely remove line soon now that improving will cont to follow with recs trend labs Rx as written plan to place PICC plan to remove temp HD line after may need trach Moiz Costa Feb 26, 2019 14:35
--- NOTE | 2019-02-26 14:52 | NUR ---
NURSE NOTES: earth science technician Bryant called to report that the patient will be on the schedule for PICC first thing tomorrow. Dr Costa notified at this time.
--- NOTE | 2019-02-26 15:27 | Diagnostic Imaging Report ---
Indication: Shortness of breath Technique: One view of the chest Comparison: 02/24/2019 Findings: Satisfactory positions of endotracheal and nasogastric tubes. Bilateral interstitial and airspace edema and bilateral pleural effusions persist, probably not significantly changed. Impression: Unchanged, over 2 days, findings as above.
--- NOTE | 2019-02-26 15:47 | NUR ---
Social Service Note BEN spoke with patient's mother Bruna Walters [phone]. Initially mother didn't recall hospital calling her for consent of PICC line. With prompting mother recalled phone call but couldn't recall what she provided consent for. Mother lives in [place]. Mother cannot recall the last time she saw patient but believes it was recent. Patient with previous hospitalization at [facility] in October and indicated he has been homeless for 2 years. Mother states patient chooses to live in his car. Mother states when he is home in [place] he lives with her. Per mother patient doesn't have siblings, has never been , no children and his father is . BEN again readdressed patient's medical condition and mother couldn't recall previous call from hospital, the current condition of patient or the procedure she consented. Mother denies memory impairment or dementia. BEN discussed with charge nurse. Will continue to monitor.
--- NOTE | 2019-02-26 16:00 | NUR ---
NURSE NOTES: Patient sleeping with RASS score of +2 at this time on Fentanyl drip at 300mcg/hr. Will continue to monitor and titrate fentanyl per protocol. Patient lower sclera still swollen on bilateral eyes but resolving. Patient has two physician consent for PICC which will be placed tomorrow. Patient feeding restarted at 15mL/hr. Patient bed in low position with bed alarm on and call light in reach at this time. Ritesh catheter central line dressing changed using aseptic technique. Blood pressure 113/85, temp 98.6, RR 24, SpO2 98%, and HR 73.
--- NOTE | 2019-02-26 16:13 | NUR ---
CASE MANAGEMENT:REVIEW 02/26/2019 SI: MULTILOBAR PNA ACUTE RESPIRATORY FAILURE. NSTEMI. HIV T 97.8 HR 65 RR 24 B/P 117/63 SATS 97% ON MECH VENT FIO2 40 NA 129 K 5.5 CL 97 BUN 72 CR 3 CA 8.1 PHOS 5.5 AST 64 ABGS PCO2 34.7 HCO3 19.8 BE -4.9 IS: IVF@100 mL/HR IV SOLUMEDROL Q12H IV DIFLUCAN Q24H IV BACTRIM Q12H IV ZOSYN Q12H FENTANYL GTT VERSED GTT INSULIN SQ Q4HRS ISORDIL NG Q6HRS NORVASC NG QD DUONEB HHN Q4HRS : ICU STATUS PLAN OF CARE: VENOUS DUPLEX OB STOOL
--- NOTE | 2019-02-26 16:54 | Nephrology Progress Note ---
Assessment/Plan Problem List: (1) ISH (acute kidney injury) Assessment: Cr lowering (2) HIV (human immunodeficiency virus infection) (3) NSTEMI (non-ST elevated myocardial infarction) Assessment: troponin decreasing (4) Hypoxia (5) Anemia (6) Diabetes Assessment Acute Renal failure- Cr leveling- Urine out put is good Acidosis improved Acute respiratory failure- Require intubation and Mechanical Ventilation- Anemia- Elevated troponin / GA HTN DM HIV Antibody + Plan adjust BP meds on feeding 3% saline once IV protonix NGt suction transfusiosn as needed BP med adjustment ? recheck 2D echo?? UA and urine studies Avoid Nephrotoxics as possible Monitor renal parameters keep BP and BS in check Per orders No HD at this time Kidney RADHA noted adjust BP meds add Isordil Subjective ROS Limited/Unobtainable: Yes Objective Objective Last 24 Hour Vital Signs Date Time Temp Pulse Resp B/P (MAP) Pulse Ox O2 Delivery O2 Flow Rate FiO2 02/26/19 16:00 98.6 73 24 113/85 (94) 98 02/26/19 16:00 Mechanical Ventilator Mechanical Ventilator 02/26/19 16:00 71 02/26/19 16:00 40 02/26/19 15:30 71 24 124/58 (80) 97 02/26/19 15:27 70 26 40 02/26/19 15:00 71 24 126/55 (78) 97 02/26/19 15:00 24 Mechanical Ventilator 40 02/26/19 14:30 70 24 127/55 (79) 97 02/26/19 14:00 66 24 115/51 (72) 97 02/26/19 14:00 24 Mechanical Ventilator 40 02/26/19 13:40 115/51 02/26/19 13:38 24 40 02/26/19 13:30 66 24 115/51 (72) 97 02/26/19 13:00 66 24 115/55 (75) 96 02/26/19 13:00 24 Mechanical Ventilator 40 02/26/19 12:53 70 24 98 Mechanical Ventilator 75.0 40 02/26/19 12:44 67 24 40 02/26/19 12:41 66 24 97 Mechanical Ventilator 75.0 40 02/26/19 12:30 65 24 117/63 (81) 97 02/26/19 12:00 71 02/26/19 12:00 40 02/26/19 12:00 24 Mechanical Ventilator 40 02/26/19 12:00 97.8 65 24 117/63 (81) 97 02/26/19 12:00 Mechanical Ventilator Mechanical Ventilator 02/26/19 11:30 65 24 117/52 (73) 97 02/26/19 11:30 118/52 02/26/19 11:22 65 24 40 02/26/19 11:00 66 24 121/55 (77) 97 02/26/19 11:00 24 Mechanical Ventilator 40 02/26/19 10:30 66 24 121/55 (77) 98 02/26/19 10:00 24 Mechanical Ventilator 40 02/26/19 10:00 66 24 122/94 (103) 98 02/26/19 09:30 68 24 135/58 (83) 98 02/26/19 09:21 75 28 40 02/26/19 09:00 73 24 128/102 (111) 98 02/26/19 09:00 24 Mechanical Ventilator 40 02/26/19 08:49 127/60 02/26/19 08:48 72 127/60 02/26/19 08:48 72 127/60 02/26/19 08:30 71 24 139/72 (94) 98 02/26/19 08:00 Mechanical Ventilator Mechanical Ventilator 02/26/19 08:00 97.6 70 24 123/57 (79) 97 02/26/19 08:00 71 02/26/19 08:00 24 Mechanical Ventilator 40 02/26/19 08:00 40 02/26/19 07:30 69 24 142/66 (91) 97 02/26/19 07:03 63 24 40 02/26/19 07:00 69 24 123/63 (83) 97 02/26/19 07:00 24 Mechanical Ventilator 40 02/26/19 06:30 62 23 107/49 (68) 97 02/26/19 06:00 22 Mechanical Ventilator 40 02/26/19 06:00 64 18 111/49 (69) 98 02/26/19 05:44 117/56 02/26/19 05:44 117/56 02/26/19 05:30 66 17 117/56 (76) 100 02/26/19 05:16 67 24 40 02/26/19 05:00 68 19 122/63 (82) 99 02/26/19 05:00 24 Mechanical Ventilator 40 02/26/19 04:34 24 Mechanical Ventilator 40 02/26/19 04:30 66 24 128/65 (86) 99 02/26/19 04:00 65 02/26/19 04:00 24 Mechanical Ventilator 40 02/26/19 04:00 40 02/26/19 04:00 97.5 68 19 129/67 (87) 99 02/26/19 04:00 Mechanical Ventilator Mechanical Ventilator 02/26/19 03:30 66 14 124/71 (88) 99 02/26/19 03:00 67 19 119/59 (79) 100 02/26/19 03:00 23 Mechanical Ventilator 40 02/26/19 02:54 68 24 40 02/26/19 02:30 65 20 153/51 (85) 99 02/26/19 02:00 67 20 123/72 (89) 99 02/26/19 02:00 22 Mechanical Ventilator 40 02/26/19 01:30 63 24 118/67 (84) 99 02/26/19 01:05 65 24 40 02/26/19 01:00 66 20 124/68 (86) 98 02/26/19 01:00 24 Mechanical Ventilator 40 02/26/19 00:30 66 12 109/60 (76) 97 02/26/19 00:00 40 02/26/19 00:00 97.2 63 24 114/52 (72) 97 02/26/19 00:00 Mechanical Ventilator Mechanical Ventilator 02/26/19 00:00 24 Mechanical Ventilator 40 02/26/19 00:00 109/60 02/26/19 00:00 63 02/25/19 23:30 62 20 113/52 (72) 97 02/25/19 23:00 63 22 112/55 (74) 98 02/25/19 23:00 24 Mechanical Ventilator 40 02/25/19 22:58 63 24 40 02/25/19 22:30 63 23 109/59 (76) 99 02/25/19 22:00 66 15 130/74 (92) 98 02/25/19 22:00 24 Mechanical Ventilator 40 02/25/19 21:30 69 19 134/61 (85) 99 02/25/19 21:12 78 25 40 02/25/19 21:11 69 122/57 02/25/19 21:11 122/57 02/25/19 21:00 122/57 02/25/19 21:00 24 Mechanical Ventilator 40 02/25/19 21:00 71 15 122/57 (78) 96 02/25/19 20:30 68 16 120/74 (89) 100 02/25/19 20:00 97.7 68 18 109/65 (80) 100 02/25/19 20:00 24 Mechanical Ventilator 40 02/25/19 20:00 40 02/25/19 20:00 Mechanical Ventilator Mechanical Ventilator 02/25/19 20:00 68 02/25/19 19:30 69 17 94/79 (84) 99 02/25/19 19:14 24 Mechanical Ventilator 40 02/25/19 19:11 70 28 40 02/25/19 19:00 69 16 110/64 (79) 99 02/25/19 19:00 24 Mechanical Ventilator 40 02/25/19 18:00 24 Mechanical Ventilator 40 02/25/19 18:00 67 15 124/72 (89) 100 02/25/19 17:11 110/55 02/25/19 17:00 Mechanical Ventilator 40 02/25/19 17:00 69 19 124/65 (84) 100 Intake and Output 02/25/19 02/26/19 18:59 06:59 Intake Total 2385.332 ml 1319.000 ml Output Total 900 ml 1650 ml Balance 1485.332 ml -331.000 ml Free Water 120 ml IV Total 1945.332 ml 999.000 ml Tube Feeding 320 ml 320 ml Output Urine Total 900 ml 1650 ml Laboratory Tests 02/26/19 04:22: White Blood Count 5.9, Red Blood Count 3.06L, Hemoglobin 8.7L, Hematocrit 27.1L , Mean Corpuscular Volume 89, Mean Corpuscular Hemoglobin 28.6, Mean Corpuscular Hemoglobin Concent 32.2, Red Cell Distribution Width 16.7H, Platelet Count 180, Mean Platelet Volume 6.3L, Neutrophils (%) (Auto) , Lymphocytes (%) (Auto) , Monocytes (%) (Auto) , Eosinophils (%) (Auto) , Basophils (%) (Auto) , Sodium Level 129L, Potassium Level 5.5H, Chloride Level 97L, Carbon Dioxide Level 22, Anion Gap 10, Blood Urea Nitrogen 72H, Creatinine 3.0H, Estimat Glomerular Filtration Rate 21.5, Glucose Level 93, Calcium Level 8.1L, Phosphorus Level 5.5H, Magnesium Level 2.3, Total Bilirubin 0.4, Aspartate Amino Transf (AST/SGOT) 64H, Alanine Aminotransferase (ALT/SGPT) 54, Alkaline Phosphatase 108, Total Protein 5.8L, Albumin 2.6L, Globulin 3.2, Albumin/Globulin Ratio 0.8L 02/26/19 12:40: Arterial Blood pH 7.374, Arterial Blood Partial Pressure CO2 34.7L, Arterial Blood Partial Pressure O2 95.3, Arterial Blood HCO3 19.8L, Arterial Blood Oxygen Saturation 96.6, Arterial Blood Base Excess -4.9L, Benny Test Positive 02/26/19 14:42: Stool Occult Blood [Pending] Height (Feet): 6 Height (Inches): 0.00 Weight (Pounds): 269 General Appearance: mild distress Cardiovascular: tachycardia Respiratory/Chest: decreased breath sounds Abdomen: distended Objective no change Mike Mcdonald MD Feb 26, 2019 16:54
[2019-02-26] MEDS: Midazolam 2mg/2ml Inj IVP PRN ×2 (17:40→20:29)
--- NOTE | 2019-02-26 18:21 | Cardiac Electrophysiology PN ---
Assessment/Plan Assessment/Plan 1. Non-ST elevation myocardial infarction with peak troponin of more than 10, down to 3.[address]-T wave abnormalities. Continue Lipitor, Imdur and metoprolol Hold off on Cardiac catheterization 2. Hypertension. Metoprolol 100 bid, Isordil 20 q6 and hydralazine 50 q 8 hr 3. Respiratory failure due to Multilobar Pneumonia. Extubated 02/19/19. Reintubated 02/20/19 Likely needs Tracheostomy 4. Hyperlipidemia. On Lipitor. 5. Human immunodeficiency virus. On anti-retroviral therapy with undetectable viral load. 6. ARF Cr 3 7. Bleeding from ETT and NG tube. S/P PRBC. Off Aspirin and Lovenox No further DW RN Subjective Subjective In ICU on the vent and fentanyl drip 300 mcg. RN at bedside. Still agitated at times. In SR Objective Last 24 Hour Vital Signs Date Time Temp Pulse Resp B/P (MAP) Pulse Ox O2 Delivery O2 Flow Rate FiO2 02/26/19 17:41 132/60 02/26/19 17:17 68 24 40 02/26/19 17:00 68 24 119/59 (79) 98 02/26/19 16:00 98.6 73 24 113/85 (94) 98 02/26/19 16:00 Mechanical Ventilator Mechanical Ventilator 02/26/19 16:00 71 02/26/19 16:00 40 02/26/19 15:30 71 24 124/58 (80) 97 02/26/19 15:27 70 26 40 02/26/19 15:00 71 24 126/55 (78) 97 02/26/19 15:00 24 Mechanical Ventilator 40 02/26/19 14:30 70 24 127/55 (79) 97 02/26/19 14:00 66 24 115/51 (72) 97 02/26/19 14:00 24 Mechanical Ventilator 40 02/26/19 13:40 115/51 02/26/19 13:38 24 40 02/26/19 13:30 66 24 115/51 (72) 97 02/26/19 13:00 66 24 115/55 (75) 96 02/26/19 13:00 24 Mechanical Ventilator 40 02/26/19 12:53 70 24 98 Mechanical Ventilator 75.0 40 02/26/19 12:44 67 24 40 02/26/19 12:41 66 24 97 Mechanical Ventilator 75.0 40 02/26/19 12:30 65 24 117/63 (81) 97 02/26/19 12:00 71 02/26/19 12:00 40 02/26/19 12:00 24 Mechanical Ventilator 40 02/26/19 12:00 97.8 65 24 117/63 (81) 97 02/26/19 12:00 Mechanical Ventilator Mechanical Ventilator 02/26/19 11:30 65 24 117/52 (73) 97 02/26/19 11:30 118/52 02/26/19 11:22 65 24 40 02/26/19 11:00 66 24 121/55 (77) 97 02/26/19 11:00 24 Mechanical Ventilator 40 02/26/19 10:30 66 24 121/55 (77) 98 02/26/19 10:00 24 Mechanical Ventilator 40 02/26/19 10:00 66 24 122/94 (103) 98 02/26/19 09:30 68 24 135/58 (83) 98 02/26/19 09:21 75 28 40 02/26/19 09:00 73 24 128/102 (111) 98 02/26/19 09:00 24 Mechanical Ventilator 40 02/26/19 08:49 127/60 02/26/19 08:48 72 127/60 02/26/19 08:48 72 127/60 02/26/19 08:30 71 24 139/72 (94) 98 02/26/19 08:00 Mechanical Ventilator Mechanical Ventilator 02/26/19 08:00 97.6 70 24 123/57 (79) 97 02/26/19 08:00 71 02/26/19 08:00 24 Mechanical Ventilator 40 02/26/19 08:00 40 02/26/19 07:30 69 24 142/66 (91) 97 02/26/19 07:03 63 24 40 02/26/19 07:00 69 24 123/63 (83) 97 02/26/19 07:00 24 Mechanical Ventilator 40 02/26/19 06:30 62 23 107/49 (68) 97 02/26/19 06:00 22 Mechanical Ventilator 40 02/26/19 06:00 64 18 111/49 (69) 98 02/26/19 05:44 117/56 02/26/19 05:44 117/56 02/26/19 05:30 66 17 117/56 (76) 100 02/26/19 05:16 67 24 40 02/26/19 05:00 68 19 122/63 (82) 99 02/26/19 05:00 24 Mechanical Ventilator 40 02/26/19 04:34 24 Mechanical Ventilator 40 02/26/19 04:30 66 24 128/65 (86) 99 02/26/19 04:00 65 02/26/19 04:00 24 Mechanical Ventilator 40 02/26/19 04:00 40 02/26/19 04:00 97.5 68 19 129/67 (87) 99 02/26/19 04:00 Mechanical Ventilator Mechanical Ventilator 02/26/19 03:30 66 14 124/71 (88) 99 02/26/19 03:00 67 19 119/59 (79) 100 02/26/19 03:00 23 Mechanical Ventilator 40 02/26/19 02:54 68 24 40 02/26/19 02:30 65 20 153/51 (85) 99 02/26/19 02:00 67 20 123/72 (89) 99 02/26/19 02:00 22 Mechanical Ventilator 40 02/26/19 01:30 63 24 118/67 (84) 99 02/26/19 01:05 65 24 40 02/26/19 01:00 66 20 124/68 (86) 98 02/26/19 01:00 24 Mechanical Ventilator 40 02/26/19 00:30 66 12 109/60 (76) 97 02/26/19 00:00 40 02/26/19 00:00 97.2 63 24 114/52 (72) 97 02/26/19 00:00 Mechanical Ventilator Mechanical Ventilator 02/26/19 00:00 24 Mechanical Ventilator 40 02/26/19 00:00 109/60 02/26/19 00:00 63 02/25/19 23:30 62 20 113/52 (72) 97 02/25/19 23:00 63 22 112/55 (74) 98 02/25/19 23:00 24 Mechanical Ventilator 40 02/25/19 22:58 63 24 40 02/25/19 22:30 63 23 109/59 (76) 99 02/25/19 22:00 66 15 130/74 (92) 98 7/7/19 22:00 24 Mechanical Ventilator 40 02/25/19 21:30 69 19 134/61 (85) 99 02/25/19 21:12 78 25 40 02/25/19 21:11 69 122/57 02/25/19 21:11 122/57 02/25/19 21:00 122/57 02/25/19 21:00 24 Mechanical Ventilator 40 02/25/19 21:00 71 15 122/57 (78) 96 02/25/19 20:30 68 16 120/74 (89) 100 02/25/19 20:00 97.7 68 18 109/65 (80) 100 02/25/19 20:00 24 Mechanical Ventilator 40 02/25/19 20:00 40 02/25/19 20:00 Mechanical Ventilator Mechanical Ventilator 02/25/19 20:00 68 02/25/19 19:30 69 17 94/79 (84) 99 02/25/19 19:14 24 Mechanical Ventilator 40 02/25/19 19:11 70 28 40 02/25/19 19:00 69 16 110/64 (79) 99 02/25/19 19:00 24 Mechanical Ventilator 40 Intake and Output 02/25/19 02/26/19 18:59 06:59 Intake Total 2385.332 ml 1319.000 ml Output Total 900 ml 1650 ml Balance 1485.332 ml -331.000 ml Free Water 120 ml IV Total 1945.332 ml 999.000 ml Tube Feeding 320 ml 320 ml Output Urine Total 900 ml 1650 ml Laboratory Tests Test 02/26/19 04:22 02/26/19 12:40 02/26/19 14:42 White Blood Count 5.9 K/UL (4.8-10.8) Red Blood Count 3.06 M/UL (4.70-6.10) L Hemoglobin 8.7 G/DL (14.2-18.0) L Hematocrit 27.1 % (42.0-52.0) L Mean Corpuscular Volume 89 FL (80-99) Mean Corpuscular Hemoglobin 28.6 PG (27.0-31.0) Mean Corpuscular Hemoglobin Concent 32.2 G/DL (32.0-36.0) Red Cell Distribution Width 16.7 % (11.6-14.8) H Platelet Count 180 K/UL (150-450) Mean Platelet Volume 6.3 FL (6.5-10.1) L Neutrophils (%) (Auto) % (45.0-75.0) Lymphocytes (%) (Auto) % (20.0-45.0) Monocytes (%) (Auto) % (1.0-10.0) Eosinophils (%) (Auto) % (0.0-3.0) Basophils (%) (Auto) % (0.0-2.0) Sodium Level 129 MMOL/L (136-145) L Potassium Level 5.5 MMOL/L (3.5-5.1) H Chloride Level 97 MMOL/L (98-107) L Carbon Dioxide Level 22 MMOL/L (21-32) Anion Gap 10 mmol/L (5-15) Blood Urea Nitrogen 72 mg/dL (7-18) H Creatinine 3.0 MG/DL (0.55-1.30) H Estimat Glomerular Filtration Rate 21.5 mL/min (>60) Glucose Level 93 MG/DL (74-106) Calcium Level 8.1 MG/DL (8.5-10.1) L Phosphorus Level 5.5 MG/DL (2.5-4.9) H Magnesium Level 2.3 MG/DL (1.8-2.4) Total Bilirubin 0.4 MG/DL (0.2-1.0) Aspartate Amino Transf (AST/SGOT) 64 U/L (15-37) H Alanine Aminotransferase (ALT/SGPT) 54 U/L (12-78) Alkaline Phosphatase 108 U/L (46-116) Total Protein 5.8 G/DL (6.4-8.2) L Albumin 2.6 G/DL (3.4-5.0) L Globulin 3.2 g/dL Albumin/Globulin Ratio 0.8 (1.0-2.7) L Arterial Blood pH 7.374 (7.350-7.450) Arterial Blood Partial Pressure CO2 34.7 mmHg (35.0-45.0) L Arterial Blood Partial Pressure O2 95.3 mmHg (75.0-100.0) Arterial Blood HCO3 19.8 mmol/L (22.0-26.0) L Arterial Blood Oxygen Saturation 96.6 % (95-100) Arterial Blood Base Excess -4.9 (-2-2) L Benny Test Positive Stool Occult Blood Pending Objective HEAD AND NECK: No JVD.Orally intubated with NG tube LUNGS: Coarse rhonchi. CARDIOVASCULAR: Regular S1 and S2 with no gallop or murmur. ABDOMEN: Soft. EXTREMITIES: 1 plus pitting edema. Murray Francois MD Feb 26, 2019 18:21
--- NOTE | 2019-02-26 19:13 | NUR ---
HAND-OFF: Report given to TESSA Najera. Patient vital signs stable. patient restless +2 at this time. Patient has been given Ativan and Versed along with fentanyl drip at 300mcg/hr. Patient still restless. Endorsed to follow up. Patient repositioned at this time. Patient has an order for PICC placement tomorrow. Endorsed to follow up.
--- NOTE | 2019-02-26 20:00 | NUR ---
NURSE NOTES: Received report from Suze Tang RN. Patient eyes closed at this time. Upon inspection, patient's lower sclera still swollen and red. Will cover eyes with saline soaked gauze to preserve moisture. Patient is sedated at this time with fentanyl running at 300mcg/hr (30mL/hr). Patient showing no sign of acute distress at this time. Patient has RASS score of -2 and is easily arousable but not restless at this time. Will continue to monitor and titrate per protocol. Patient intubated with 7.5cm ETT with 24cm at the lip line and ventilator setting of AC 24, TV 550, FiO2 40%, and PEEP 5. Bilateral upper lung lobes inspiratory and expiratory rhonchi, lower lobes diminished and difficult to hear due to patient's abdominal distention. Patient tolerating setting with oxygen saturation 96% at this time. Patient blood pressure 140/75, HR 68, RR 24, Temp 98.6. Patient has an NGT in the left nares that is patent and verified with auscultation at this time. Patient running Glucerna 1.2 at Patient rate not increased due to high residual of 50-70mL throughout the night. Will continue to monitor residual and adjust feeding rate when appropriate. Patient has anasarca with pitting edema on +3 to +4 on the lower extremities and pitting +2 to +3 on the upper extremities. Abdomen distention is non-pitting but tight. Petechiae noted on the under arms. Scrotum swollen and non-pitting. Simon in place for urine retention and to monitor kidney function. Urine dark scott at this time. Patient has left femoral paulo catheter with pigtail running Fentanyl at 300mcg/hr (30mL/hr) at this time. Dressing changed during cut off saw grader last night. Patient continues to ooze serosanguineous fluid from Paulo catheter. Will continue to monitor and redress Paulo catheter as needed. Patient has a left hand 22G PIV that is patent, asymptomatic and running saline locked at this time. Patient bilateral lower extremities elevated at this time with heels floated. Patient has a resolved stage one pressure ulcer of the right elbow and a small skin tear on the left thigh. Patient is at risk for skin breakdown and will be turned every 2 hours and as needed. Oral care and repositioning done at this time. Bed in low position with bed alarm on and call light in reach. Patient has an order for PICC line placement today. Consent has not been signed. Will follow up.
[2019-02-26] MEDS: Maxitrol Opth Oint 3.5gm BOTH EYES SCH (20:29)
[2019-02-26] MEDS: Dyna-Hex 2% Top Sol 2oz TOPIC SCH (20:29)
[2019-02-26] MEDS: Miralax 17gm pkt ORAL SCH (20:30)
[2019-02-26] MEDS: Heparin 5000 units/ml inj SUBQ SCH (20:31)
--- NOTE | 2019-02-26 21:00 | NUR ---
NURSE NOTES: New bag of fentanyl gtt hung. Patient was suctioned and given oral care. Liquid diarrhea coming from rectal tube. Miralax non-admin for that reason. Patient remains sedated with gtt. Will continue to monitor.
--- NOTE | 2019-02-26 22:00 | NUR ---
NURSE NOTES: Repositioned and oral care provided. Patient remains sedated. VS remains stable. Will continue to monitor.
[2019-02-27] VITALS (41 sets, daily range): BP systolic 116–157; BP diastolic 54–87
--- NOTE | 2019-02-27 | NUR ---
NURSE NOTES: Repositioned patient and oral care provided, Glucose 113, no coverage given. [place] duplex ocular care technician at bedside.
[2019-02-27] MEDS: D5W IV SCH ×2 (00:05→08:35)
[2019-02-27] MEDS: SULFAMETHOXAZOLE IV SCH ×2 (00:05→08:35)
[2019-02-27] MEDS: TRIMETHOPRIM IV SCH ×2 (00:05→08:35)
[2019-02-27] MEDS: Metoclopramide 10mg/2ml Inj IVP SCH ×3 (00:06→16:39)
[2019-02-27] MEDS: Albuterol/Ipratropium 3ml neb HHN SCH ×4 (01:39→19:33)
--- NOTE | 2019-02-27 02:00 | NUR ---
NURSE NOTES: Repositioned and given oral care. NAD at this time. VSS. Will continue to monitor.
--- NOTE | 2019-02-27 04:00 | NUR ---
NURSE NOTES: Patient repositioned, labs drawn and sent. NAD at this time, fentanyl gtt ongoing. Will continue to monitor .
[2019-02-27] MEDS: Lacri-Lube Opth Oint 3.5gm BOTH EYES SCH ×4 (05:33→21:01)
[2019-02-27] MEDS: HydrALAZINE 50mg tab NG SCH ×3 (05:33→20:58)
[2019-02-27] MEDS: NovoLOG Insulin Flexpen SUBQ SCH ×4 (05:34→17:43)
[2019-02-27 05:48] LABS: BASOPHILS % (AUTO) 0.4 % (0.0-2.0); EOSINOPHILS % (AUTO) 1.2 % (0.0-3.0); HEMOGLOBIN 8.7 G/DL (14.2-18.0); LYMPHOCYTES % (AUTO) 10.7 % (20.0-45.0); MEAN CORPUSCULAR VOLUME 88 FL (80-99); NEUTROPHILS % (AUTO) 76.8 % (45.0-75.0); PLATELET COUNT 177 K/UL (150-450); RED BLOOD COUNT 3.06 M/UL (4.70-6.10); WHITE BLOOD COUNT 7.2 K/UL (4.8-10.8)
--- NOTE | 2019-02-27 05:52 | General Progress Note ---
Assessment/Plan Problem List: (1) ISH (acute kidney injury) ICD Codes: N17.9 - Acute kidney failure, unspecified SNOMED: 67944006 (2) Uncontrolled type 2 diabetes mellitus with chronic kidney disease ICD Codes: E11.22 - Type 2 diabetes mellitus with diabetic chronic kidney disease; E11.65 - Type 2 diabetes mellitus with hyperglycemia SNOMED: 56540815, 670446369, 952395607 (3) HIV disease ICD Codes: B20 - Human immunodeficiency virus [HIV] disease SNOMED: 58420548 (4) Respiratory distress ICD Codes: R06.03 - Acute respiratory distress SNOMED: 241031089 Status: stable Assessment/Plan: - continue Novolog sliding scale every 6 hours - no need for basal insulin Subjective ROS Limited/Unobtainable: Yes Allergies: Coded Allergies: No Known Allergies (Unverified , 02/05/13) Subjective events noted remained intubated in ICU glucose values are stable Item Value Date Time Bedside Blood Glucose 153 mg/dl H 02/27/19 0534 Bedside Blood Glucose 113 mg/dl 02/27/19 0000 Bedside Blood Glucose 189 mg/dl H 02/26/19 1800 Bedside Blood Glucose 157 mg/dl H 02/26/19 1209 Bedside Blood Glucose 89 mg/dl 02/26/19 0500 Objective Last 24 Hour Vital Signs Date Time Temp Pulse Resp B/P (MAP) Pulse Ox O2 Delivery O2 Flow Rate FiO2 02/27/19 05:33 137/62 02/27/19 05:32 137/62 02/27/19 05:20 74 26 40 40 02/27/19 04:00 71 02/27/19 04:00 24 Mechanical Ventilator 40 02/27/19 04:00 40 02/27/19 04:00 Mechanical Ventilator 02/27/19 03:30 72 24 133/87 (102) 100 02/27/19 03:29 73 31 40 40 02/27/19 03:00 61 24 121/61 (81) 99 02/27/19 03:00 24 Mechanical Ventilator 40 02/27/19 02:30 72 24 156/86 (109) 100 02/27/19 02:00 24 Mechanical Ventilator 40 02/27/19 02:00 71 13 136/63 (87) 100 02/27/19 01:48 74 24 100 Mechanical Ventilator 40 02/27/19 01:30 70 19 124/72 (89) 100 02/27/19 01:29 69 28 100 Mechanical Ventilator 40 02/27/19 01:29 70 29 40 40 02/27/19 01:00 24 Mechanical Ventilator 40 02/27/19 01:00 71 12 129/75 (93) 96 02/27/19 00:30 71 19 126/72 (90) 99 02/27/19 00:06 131/65 02/27/19 00:00 Mechanical Ventilator 02/27/19 00:00 24 Mechanical Ventilator 40 02/27/19 00:00 98.9 67 22 131/65 (87) 100 02/27/19 00:00 40 02/27/19 00:00 65 02/26/19 23:30 67 23 126/92 (103) 98 02/26/19 23:00 62 20 122/63 (82) 100 02/26/19 23:00 24 Mechanical Ventilator 40 02/26/19 22:46 62 26 40 40 02/26/19 22:30 62 21 122/64 (83) 99 02/26/19 22:00 24 Mechanical Ventilator 40 02/26/19 22:00 61 24 119/61 (80) 99 02/26/19 21:30 63 19 120/61 (80) 99 02/26/19 21:08 63 24 40 40 02/26/19 21:05 24 Mechanical Ventilator 40 02/26/19 21:04 24 Mechanical Ventilator 40 02/26/19 21:04 130/60 02/26/19 21:00 63 22 130/60 (83) 99 02/26/19 21:00 24 Mechanical Ventilator 40 02/26/19 20:30 70 140/75 02/26/19 20:30 63 20 140/75 (96) 99 02/26/19 20:29 140/75 02/26/19 20:00 40 02/26/19 20:00 99.3 65 21 120/60 (80) 100 02/26/19 20:00 24 Mechanical Ventilator 40 02/26/19 20:00 63 02/26/19 20:00 Mechanical Ventilator 02/26/19 19:30 67 21 121/65 (83) 100 02/26/19 19:10 70 24 100 Mechanical Ventilator 40 02/26/19 19:00 70 24 137/63 (87) 100 02/26/19 19:00 24 Mechanical Ventilator 40 02/26/19 19:00 71 24 100 Mechanical Ventilator 40 02/26/19 19:00 71 24 40 40 02/26/19 18:00 24 Mechanical Ventilator 40 02/26/19 18:00 72 24 131/66 (87) 100 02/26/19 17:41 24 Mechanical Ventilator 40 02/26/19 17:41 132/60 02/26/19 17:17 68 24 40 02/26/19 17:00 68 24 119/59 (79) 98 02/26/19 17:00 24 Mechanical Ventilator 40 02/26/19 16:00 98.6 73 24 113/85 (94) 98 02/26/19 16:00 Mechanical Ventilator Mechanical Ventilator 02/26/19 16:00 24 Mechanical Ventilator 40 02/26/19 16:00 71 02/26/19 16:00 40 02/26/19 15:30 71 24 124/58 (80) 97 02/26/19 15:27 70 26 40 02/26/19 15:00 71 24 126/55 (78) 97 02/26/19 15:00 24 Mechanical Ventilator 40 02/26/19 14:30 70 24 127/55 (79) 97 02/26/19 14:00 66 24 115/51 (72) 97 02/26/19 14:00 24 Mechanical Ventilator 40 02/26/19 13:40 115/51 02/26/19 13:38 24 40 02/26/19 13:30 66 24 115/51 (72) 97 02/26/19 13:00 66 24 115/55 (75) 96 02/26/19 13:00 24 Mechanical Ventilator 40 02/26/19 12:53 70 24 98 Mechanical Ventilator 75.0 40 02/26/19 12:44 67 24 40 02/26/19 12:41 66 24 97 Mechanical Ventilator 75.0 40 02/26/19 12:30 65 24 117/63 (81) 97 02/26/19 12:00 71 02/26/19 12:00 40 02/26/19 12:00 24 Mechanical Ventilator 40 02/26/19 12:00 97.8 65 24 117/63 (81) 97 02/26/19 12:00 Mechanical Ventilator Mechanical Ventilator 02/26/19 11:30 65 24 117/52 (73) 97 02/26/19 11:30 118/52 02/26/19 11:22 65 24 40 02/26/19 11:00 66 24 121/55 (77) 97 02/26/19 11:00 24 Mechanical Ventilator 40 02/26/19 10:30 66 24 121/55 (77) 98 02/26/19 10:00 24 Mechanical Ventilator 40 02/26/19 10:00 66 24 122/94 (103) 98 02/26/19 09:30 68 24 135/58 (83) 98 02/26/19 09:21 75 28 40 02/26/19 09:00 73 24 128/102 (111) 98 02/26/19 09:00 24 Mechanical Ventilator 40 02/26/19 08:49 127/60 02/26/19 08:48 72 127/60 02/26/19 08:48 72 127/60 02/26/19 08:30 71 24 139/72 (94) 98 02/26/19 08:00 Mechanical Ventilator Mechanical Ventilator 02/26/19 08:00 97.6 70 24 123/57 (79) 97 02/26/19 08:00 71 02/26/19 08:00 24 Mechanical Ventilator 40 02/26/19 08:00 40 02/26/19 07:30 69 24 142/66 (91) 97 02/26/19 07:03 63 24 40 02/26/19 07:00 69 24 123/63 (83) 97 02/26/19 07:00 24 Mechanical Ventilator 40 02/26/19 06:30 62 23 107/49 (68) 97 02/26/19 06:00 22 Mechanical Ventilator 40 02/26/19 06:00 64 18 111/49 (69) 98 Intake and Output 02/26/19 02/27/19 19:00 07:00 Intake Total 2065.0500 ml 1213 ml Output Total 1360 ml 945 ml Balance 705.0500 ml 268 ml IV Total 1855.0500 ml 878 ml Tube Feeding 80 ml 335 ml Other 130 ml Output Urine Total 1160 ml 945 ml Stool Total 200 ml Laboratory Tests 02/26/19 12:40: Arterial Blood pH 7.374, Arterial Blood Partial Pressure CO2 34.7L, Arterial Blood Partial Pressure O2 95.3, Arterial Blood HCO3 19.8L, Arterial Blood Oxygen Saturation 96.6, Arterial Blood Base Excess -4.9L, Benny Test Positive 02/26/19 14:42: Stool Occult Blood [Pending] 02/27/19 04:30: White Blood Count [Pending], Red Blood Count [Pending], Hemoglobin [Pending], Hematocrit [Pending], Mean Corpuscular Volume [Pending], Mean Corpuscular Hemoglobin [Pending], Mean Corpuscular Hemoglobin Concent [Pending], Red Cell Distribution Width [Pending], Platelet Count [Pending], Mean Platelet Volume [ Pending], Neutrophils (%) (Auto) [Pending], Lymphocytes (%) (Auto) [Pending], Monocytes (%) (Auto) [Pending], Eosinophils (%) (Auto) [Pending], Basophils (%) (Auto) [Pending], Sodium Level [Pending], Potassium Level [Pending], Chloride Level [Pending], Carbon Dioxide Level [Pending], Blood Urea Nitrogen [Pending], Creatinine [Pending], Estimat Glomerular Filtration Rate [Pending], Glucose Level [Pending], Calcium Level [Pending], Total Bilirubin [Pending], Aspartate Amino Transf (AST/SGOT) [Pending], Alanine Aminotransferase (ALT/SGPT) [Pending] , Alkaline Phosphatase [Pending], Total Protein [Pending], Albumin [Pending], Globulin [Pending] Height (Feet): 6 Height (Inches): 0.00 Weight (Pounds): 269 General Appearance: other - intubated EENT: other - ETT Neck: normal alignment Cardiovascular: normal rate Respiratory/Chest: decreased breath sounds Abdomen: normal bowel sounds Pelvis: normal external exam Edema: 1+ Arm (L), 1+ Arm (R), 1+ Leg (L), 1+ Leg (R), 1+ Pedal (L), 1+ Pedal ( R), 1+ Generalized Objective Current Medications Medications (Trade) Dose Ordered Sig/Marquis Route PRN Reason Start Time Stop Time Status Last Admin Dose Admin Acetaminophen (Tylenol) 650 mg Q4H PRN ORAL Mild Pain (Pain Scale 1-3) 02/07/19 11:15 03/08/19 17:29 02/22/19 14:37 Acetaminophen/ Butalbital/ Caffeine (Fioricet) 1 tab Q8H PRN ORAL For Headache 02/08/19 17:15 03/10/19 17:14 Albuterol/ Ipratropium (Albuterol/ Ipratropium) 3 ml Q4H PRN HHN Shortness of Breath 02/26/19 12:30 03/03/19 12:29 Albuterol/ Ipratropium (Albuterol/ Ipratropium) 3 ml Q6HRT HHN 02/26/19 13:00 03/03/19 12:59 02/27/19 01:39 Amlodipine Besylate (Norvasc) 10 mg DAILY NG 02/15/19 09:00 03/14/19 15:59 02/26/19 08:48 Artificial Tears (Lacri-Lube) 1 applic AC+HS BOTH EYES 02/18/19 06:30 03/20/19 06:29 02/27/19 05:33 Bisacodyl (Dulcolax) 5 mg DAILYPRN PRN ORAL Constipation 02/08/19 17:15 03/10/19 17:14 02/25/19 12:45 Chlorhexidine Gluconate (Jessy-Hex 2%) 1 applic DAILY@2000 TOPIC 02/25/19 20:00 03/27/19 19:59 02/26/19 20:29 Clonidine HCl (Catapres Tab) 0.1 mg EVERY 12 HOURS NG 02/25/19 21:00 03/19/19 13:59 02/26/19 20:29 Dextrose (Dextrose 50%) 25 ml Q30M PRN IV Hypoglycemia 02/26/19 07:30 03/28/19 07:29 Dextrose (Dextrose 50%) 50 ml Q30M PRN IV Hypoglycemia 02/26/19 07:30 03/28/19 07:29 Docusate Sodium (Colace) 100 mg TID GT 02/12/19 18:00 03/12/19 08:59 02/26/19 08:47 Fentanyl Citrate 2500 mcg/Sodium Chloride 250 ml @ 0 mls/hr Q24H IV 02/23/19 20:30 03/02/19 20:29 02/26/19 21:05 Fluconazole/ Sodium Chloride 100 ml @ 100 mls/hr Q24H IV 02/26/19 18:00 03/05/19 17:59 02/26/19 17:41 Guaifenesin (Mucinex ER) 600 mg TWICE A DAY ORAL 02/07/19 18:00 03/09/19 08:59 02/26/19 17:41 Heparin Sodium (Porcine) (Heparin 5000 units/ml) 5,000 units EVERY 12 HOURS SUBQ 02/26/19 21:00 03/28/19 20:59 02/26/19 20:31 Heparin Sodium/ Sodium Chloride (Heparin 1000 units/500ml Premix) 1,000 unit ONCE PRN IV picc line placement 02/25/19 14:45 02/27/19 14:44 Hydralazine HCl (Apresoline) 10 mg Q4H PRN IV bp over 165 syst 02/17/19 10:15 03/19/19 10:14 02/19/19 14:45 Hydralazine HCl (Apresoline) 50 mg Q8HR NG 02/22/19 14:00 03/21/19 21:59 02/27/19 05:33 Insulin Aspart (NovoLOG) EVERY 6 HOURS SUBQ 02/26/19 12:00 03/28/19 11:59 02/27/19 05:34 Isosorbide Dinitrate (Isordil) 20 mg Q6HR NG 02/22/19 12:00 03/15/19 12:59 02/27/19 05:32 Lidocaine HCl (Xylocaine 1% 30ml) 30 ml ONCE PRN INJ picc line placement 02/25/19 14:45 02/27/19 14:44 Metoclopramide HCl (Reglan) 5 mg Q8H IVP 02/26/19 09:00 03/28/19 08:59 02/27/19 00:06 Metolazone (Zaroxolyn) 10 mg DAILY NG 02/19/19 10:00 03/21/19 09:59 02/26/19 08:47 Metoprolol Tartrate (Lopressor) 100 mg Q12HR ORAL 02/22/19 21:00 03/08/19 20:59 02/26/19 20:30 Midazolam HCl (Versed 2mg/2ml vial) 1 mg Q2H PRN IVP Agitation 02/13/19 08:45 03/15/19 08:44 02/26/19 20:29 Neomycin/ Polymyxin/ Dexamethasone (Maxitrol Opth Oint) 1 applic BEDTIME BOTH EYES 02/18/19 21:00 03/20/19 20:59 02/26/19 20:29 Nitroglycerin (Ntg) 0.4 mg Q5M PRN SL Prn Chest Pain 02/07/19 11:00 03/08/19 17:29 02/08/19 07:42 Ondansetron HCl (Zofran) 4 mg Q6H PRN IVP Nausea & Vomiting 02/07/19 11:15 03/08/19 11:14 02/09/19 00:58 Pantoprazole (Protonix) 40 mg DAILY IVP 02/26/19 09:00 03/24/19 20:59 02/26/19 08:49 Patient Own Medication (Patient's Own Med) 1 ea BID ORAL 02/07/19 18:00 03/09/19 17:59 02/26/19 17:40 Patient Own Medication (Patient's Own Med) 1 ea Q48H ORAL 02/18/19 09:00 03/20/19 08:59 02/26/19 08:47 Patient Own Medication (Patient's Own Med) 2 ea DAILY ORAL 02/08/19 09:00 03/10/19 08:59 02/26/19 08:47 Piperacillin Sod/ Tazobactam Sod 3.375 gm/Sodium Chloride 110 ml @ 27.5 mls/hr EVERY 12 HOURS IVPB 02/25/19 21:00 03/01/19 21:59 02/26/19 20:29 Polyethylene Glycol (Miralax) 17 gm BEDTIME ORAL 02/08/19 21:00 03/10/19 20:59 02/25/19 20:56 Sennosides (Senokot) 8.6 mg DAILY ORAL 02/13/19 12:00 03/15/19 11:59 02/26/19 08:48 Trimethoprim/ Sulfamethoxazole 25 ml/Dextrose 575 ml @ 383.333 mls/hr [id number] BACTRIM IV 02/26/19 16:00 03/05/19 15:59 02/27/19 00:05 aCrlito Nichols MD Feb 27, 2019 05:52
--- NOTE | 2019-02-27 06:00 | NUR ---
NURSE NOTES: VSS, no acute changes overnight. Glucose 153, coverage given.
[2019-02-27 06:35] LABS: ALANINE AMINOTRANSFERASE 54 U/L (12-78); ALBUMIN 2.4 G/DL (3.4-5.0); ALBUMIN/GLOBULIN RATIO 0.7 (1.0-2.7); ALKALINE PHOSPHATASE 113 U/L (46-116); ANION GAP 13 mmol/L (5-15); ASPARTATE AMINO TRANSFERASE 63 U/L (15-37); BILIRUBIN,TOTAL 0.3 MG/DL (0.2-1.0); BLOOD UREA NITROGEN 73 mg/dL (7-18); CALCIUM 8.2 MG/DL (8.5-10.1); CARBON DIOXIDE 21 MMOL/L (21-32); CHLORIDE 100 MMOL/L (98-107); CREATININE 3.3 MG/DL (0.55-1.30); POTASSIUM 5.1 MMOL/L (3.5-5.1); SODIUM 134 MMOL/L (136-145)
--- NOTE | 2019-02-27 07:00 | NUR ---
RESPIRATORY NOTES: Received Patient on Vent settings ACVC 24, VT 550, FIO2 40%, PEEP +5. Patient has a 7.5 ETT at 24cm at the lip, secured with anchorfast. Bilateral rhonchi noted throughout both lung almaguer. Suction minimal amount of thick white phipps secretions Q2 and PRN through ETT. Vent alarms are on and audible. Vent plugged into red outlet. Will continue to monitor throughout the day.
--- NOTE | 2019-02-27 07:00 | NUR ---
HAND-OFF: Report given to Suze Case.
--- NOTE | 2019-02-27 07:01 | NUR ---
NURSE NOTES: Received report from TESSA Najera. Patient eyes closed at this time. Upon inspection, patient's lower sclera remains swollen and red but resolving. Patient is sedated at this time with fentanyl running at 300mcg/hr (30mL/hr). Patient showing no sign of acute distress at this time. Patient has RASS score of -1 to -2 and is easily arousable. Will continue to monitor and titrate fentanyl drip per protocol. Patient intubated with 7.5cm ETT with 24cm at the lip line and ventilator setting of AC 24, TV 550, FiO2 40%, and PEEP 5. Bilateral upper lung lobes inspiratory and expiratory rhonchi, lower lobes diminished and difficult to hear due to patient's abdominal distention. Chest x-ray shows pulmonary edema and bilateral pleural effusion. Patient tolerating setting with oxygen saturation 97% at this time. Patient blood pressure 154/79, HR 78, RR 28, Temp 98.5. Patient has an NGT in the left nares that is patent and verified with auscultation at this time. Patient feeding held at this time post medication administration at 0600. Will monitor residual and restart feeding of Nepro at 40mL/hr when applicable. Will continue to monitor residual and adjust feeding rate when appropriate. Patient has anasarca with pitting edema on +3 to +4 on the lower extremities and pitting +2 to +3 on the upper extremities. Abdomen distention is non-pitting but tight. Petechiae noted on the under arms. Scrotum swollen and non-pitting. Simon in place for urine retention and to monitor kidney function. Urine dark scott/pink with some sediment. Simon replaced yesterday AM. Patient has left femoral paulo catheter with pigtail running Zosyn at this time. This line is to be removed today after PICC line insertion. Dressing changed yesterday 02/26. Patient continues to ooze serosanguineous fluid from Paulo catheter due to generalized edema/third spacing. Patient has a left hand 22G PIV that is patent, asymptomatic and fentanyl at 300mcg/hr at this time. Patient bilateral lower extremities elevated at this time with heels floated. Patient has a resolved stage one pressure ulcer of the right elbow and a small skin tear on the left thigh. Patient is at risk for skin breakdown and will be turned every 2 hours and as needed. Oral care and repositioning done at this time. Bed in low position with bed alarm on and call light in reach. Patient has an order for PICC line placement today. Consent has been signed by two physician. Will follow up.
--- NOTE | 2019-02-27 08:27 | General Progress Note ---
Assessment/Plan Status: stable Assessment/Plan: 1. History of HIV. 2. Hypertension. 3. Vertigo. 4. History of headaches. 5. History of diabetes. 6. Respiratory failure 7. Dysphagia 8. ileus stable H&H NGTF ppi fu H&H prn blood transfusion ppi low dose reglan Subjective ROS Limited/Unobtainable: No Allergies: Coded Allergies: No Known Allergies (Unverified , 02/05/13) Objective Last 24 Hour Vital Signs Date Time Temp Pulse Resp B/P (MAP) Pulse Ox O2 Delivery O2 Flow Rate FiO2 02/27/19 08:00 77 02/27/19 08:00 40 02/27/19 08:00 98.5 75 28 141/64 (89) 97 02/27/19 07:54 Mechanical Ventilator 02/27/19 07:30 77 17 154/79 (104) 97 02/27/19 07:00 75 28 99 Mechanical Ventilator 40 02/27/19 07:00 24 Mechanical Ventilator 40 02/27/19 07:00 79 24 129/79 (96) 99 02/27/19 06:58 76 30 40 40 02/27/19 06:49 76 29 97 Mechanical Ventilator 40 02/27/19 06:30 73 24 150/64 (92) 98 02/27/19 06:00 24 Mechanical Ventilator 40 02/27/19 06:00 74 12 153/63 (93) 99 02/27/19 05:33 137/62 02/27/19 05:32 137/62 02/27/19 05:30 74 12 126/73 (90) 99 02/27/19 05:20 74 26 40 40 02/27/19 05:00 73 16 137/62 (87) 98 02/27/19 05:00 24 Mechanical Ventilator 40 02/27/19 04:30 73 13 136/71 (92) 99 02/27/19 04:00 71 02/27/19 04:00 24 Mechanical Ventilator 40 02/27/19 04:00 40 02/27/19 04:00 98.3 72 20 123/80 (94) 98 02/27/19 04:00 Mechanical Ventilator 02/27/19 03:30 72 24 133/87 (102) 100 02/27/19 03:29 73 31 40 40 02/27/19 03:00 61 24 121/61 (81) 99 02/27/19 03:00 24 Mechanical Ventilator 40 02/27/19 02:30 72 24 156/86 (109) 100 02/27/19 02:00 24 Mechanical Ventilator 40 02/27/19 02:00 71 13 136/63 (87) 100 02/27/19 01:48 74 24 100 Mechanical Ventilator 40 02/27/19 01:30 70 19 124/72 (89) 100 02/27/19 01:29 69 28 100 Mechanical Ventilator 40 02/27/19 01:29 70 29 40 40 02/27/19 01:00 24 Mechanical Ventilator 40 02/27/19 01:00 71 12 129/75 (93) 96 02/27/19 00:30 71 19 126/72 (90) 99 02/27/19 00:06 131/65 02/27/19 00:00 Mechanical Ventilator 02/27/19 00:00 24 Mechanical Ventilator 40 02/27/19 00:00 98.9 67 22 131/65 (87) 100 02/27/19 00:00 40 02/27/19 00:00 65 02/26/19 23:30 67 23 126/92 (103) 98 02/26/19 23:00 62 20 122/63 (82) 100 02/26/19 23:00 24 Mechanical Ventilator 40 02/26/19 22:46 62 26 40 40 02/26/19 22:30 62 21 122/64 (83) 99 02/26/19 22:00 24 Mechanical Ventilator 40 02/26/19 22:00 61 24 119/61 (80) 99 02/26/19 21:30 63 19 120/61 (80) 99 02/26/19 21:08 63 24 40 40 02/26/19 21:05 24 Mechanical Ventilator 40 02/26/19 21:04 24 Mechanical Ventilator 40 02/26/19 21:04 130/60 02/26/19 21:00 63 22 130/60 (83) 99 02/26/19 21:00 24 Mechanical Ventilator 40 02/26/19 20:30 70 140/75 02/26/19 20:30 63 20 140/75 (96) 99 02/26/19 20:29 140/75 02/26/19 20:00 40 02/26/19 20:00 99.3 65 21 120/60 (80) 100 02/26/19 20:00 24 Mechanical Ventilator 40 02/26/19 20:00 63 02/26/19 20:00 Mechanical Ventilator 02/26/19 19:30 67 21 121/65 (83) 100 02/26/19 19:10 70 24 100 Mechanical Ventilator 40 02/26/19 19:00 70 24 137/63 (87) 100 02/26/19 19:00 24 Mechanical Ventilator 40 02/26/19 19:00 71 24 100 Mechanical Ventilator 40 02/26/19 19:00 71 24 40 40 02/26/19 18:00 24 Mechanical Ventilator 40 02/26/19 18:00 72 24 131/66 (87) 100 02/26/19 17:41 24 Mechanical Ventilator 40 02/26/19 17:41 132/60 02/26/19 17:17 68 24 40 02/26/19 17:00 68 24 119/59 (79) 98 02/26/19 17:00 24 Mechanical Ventilator 40 02/26/19 16:00 98.6 73 24 113/85 (94) 98 02/26/19 16:00 Mechanical Ventilator Mechanical Ventilator 02/26/19 16:00 24 Mechanical Ventilator 40 02/26/19 16:00 71 02/26/19 16:00 40 02/26/19 15:30 71 24 124/58 (80) 97 02/26/19 15:27 70 26 40 02/26/19 15:00 71 24 126/55 (78) 97 02/26/19 15:00 24 Mechanical Ventilator 40 02/26/19 14:30 70 24 127/55 (79) 97 02/26/19 14:00 66 24 115/51 (72) 97 02/26/19 14:00 24 Mechanical Ventilator 40 02/26/19 13:40 115/51 02/26/19 13:38 24 40 02/26/19 13:30 66 24 115/51 (72) 97 02/26/19 13:00 66 24 115/55 (75) 96 02/26/19 13:00 24 Mechanical Ventilator 40 02/26/19 12:53 70 24 98 Mechanical Ventilator 75.0 40 02/26/19 12:44 67 24 40 02/26/19 12:41 66 24 97 Mechanical Ventilator 75.0 40 02/26/19 12:30 65 24 117/63 (81) 97 02/26/19 12:00 71 02/26/19 12:00 40 02/26/19 12:00 24 Mechanical Ventilator 40 02/26/19 12:00 97.8 65 24 117/63 (81) 97 02/26/19 12:00 Mechanical Ventilator Mechanical Ventilator 02/26/19 11:30 65 24 117/52 (73) 97 02/26/19 11:30 118/52 02/26/19 11:22 65 24 40 02/26/19 11:00 66 24 121/55 (77) 97 02/26/19 11:00 24 Mechanical Ventilator 40 02/26/19 10:30 66 24 121/55 (77) 98 02/26/19 10:00 24 Mechanical Ventilator 40 02/26/19 10:00 66 24 122/94 (103) 98 02/26/19 09:30 68 24 135/58 (83) 98 02/26/19 09:21 75 28 40 02/26/19 09:00 73 24 128/102 (111) 98 02/26/19 09:00 24 Mechanical Ventilator 40 02/26/19 08:49 127/60 02/26/19 08:48 72 127/60 02/26/19 08:48 72 127/60 02/26/19 08:30 71 24 139/72 (94) 98 Intake and Output 02/26/19 02/27/19 19:00 07:00 Intake Total 2065.0500 ml 1473 ml Output Total 1360 ml 1145 ml Balance 705.0500 ml 328 ml Free Water 50 ml IV Total 1855.0500 ml 968 ml Tube Feeding 80 ml 455 ml Other 130 ml Output Urine Total 1160 ml 1145 ml Stool Total 200 ml Laboratory Tests 02/26/19 12:40: Arterial Blood pH 7.374, Arterial Blood Partial Pressure CO2 34.7L, Arterial Blood Partial Pressure O2 95.3, Arterial Blood HCO3 19.8L, Arterial Blood Oxygen Saturation 96.6, Arterial Blood Base Excess -4.9L, Benny Test Positive 02/26/19 14:42: Stool Occult Blood [Pending] 02/27/19 04:30: White Blood Count 7.2, Red Blood Count 3.06L, Hemoglobin 8.7L, Hematocrit 27.0L , Mean Corpuscular Volume 88, Mean Corpuscular Hemoglobin 28.6, Mean Corpuscular Hemoglobin Concent 32.4, Red Cell Distribution Width 17.0H, Platelet Count 177, Mean Platelet Volume 6.8, Neutrophils (%) (Auto) 76.8H, Lymphocytes (%) (Auto) 10.7L, Monocytes (%) (Auto) 11.0H, Eosinophils (%) (Auto ) 1.2, Basophils (%) (Auto) 0.4, Sodium Level 134L, Potassium Level 5.1, Chloride Level 100, Carbon Dioxide Level 21, Anion Gap 13, Blood Urea Nitrogen 73H, Creatinine 3.3H, Estimat Glomerular Filtration Rate 19.3, Glucose Level 151H, Calcium Level 8.2L, Total Bilirubin 0.3, Aspartate Amino Transf (AST/SGOT ) 63H, Alanine Aminotransferase (ALT/SGPT) 54, Alkaline Phosphatase 113, Total Protein 5.8L, Albumin 2.4L, Globulin 3.4, Albumin/Globulin Ratio 0.7L Height (Feet): 6 Height (Inches): 0.00 Weight (Pounds): 269 General Appearance: lethargic EENT: normal ENT inspection Neck: supple Cardiovascular: normal rate Respiratory/Chest: decreased breath sounds Abdomen: normal bowel sounds, non tender, soft Extremities: non-tender Kg Ricketts MD Feb 27, 2019 08:27
[2019-02-27] MEDS: Piperacillin/Tazobactam 3.375 GM in NS 110 ML IVPB SCH (08:36)
[2019-02-27] MEDS: Pantoprazole Inj IVP SCH (08:36)
[2019-02-27] MEDS: guaiFENesin ER 600mg tab ORAL SCH ×2 (08:36→17:40)
[2019-02-27] MEDS: RALTEGRAVIR 400 MG ORAL SCH ×2 (08:36→17:40)
[2019-02-27] MEDS: ETRAVIRINE 200 MG ORAL SCH (08:36)
[2019-02-27] MEDS: Sennosides 8.6mg tab ORAL SCH (08:37)
[2019-02-27] MEDS: Docusate 100mg/10ml Liq GT SCH ×3 (08:38→17:57)
[2019-02-27] MEDS: Heparin 5000 units/ml inj SUBQ SCH ×2 (08:42→21:00)
--- NOTE | 2019-02-27 08:53 | Pulmonolgy Critical Care Note ---
Critical Care - Asmt/Plan Problems: (1) Endotracheally intubated (2) Acute hypoxemic respiratory failure (3) Pneumonia (4) NSTEMI (non-ST elevated myocardial infarction) (5) AIDS (6) HIV disease (7) Hypertension (8) MDD (major depressive disorder), recurrent episode, moderate (9) Anemia (10) CKD (chronic kidney disease) (11) History of stroke (12) Diabetes (13) Anxiety (14) Malignant hypertension Assessment/Plan: VDRF, extubated 02/19, re-intubated 02/20 Hemoptysis, hematemesis ARDS Acute respiratory failure B pulmonary infiltrates, ? multilobar CAP vs atypical infection vs other ? PJP AIDS (CD4 191) NSTEMI H/O prior CVA HTN HL DM with uncontrolled BS ISH on CKD Anemia PLAN: KUB Paracentesis and thoracentesis evaluation Continue ventilatory support/settings reviewed SBT as able Will likely need trach if unable to wean next few days Keep PEEP 5, titrate down FiO2 to keep SaO2 > 90% RTC and PRN HHN's Continue Abx per ID (TMP/SMX, Zosyn) + flucon per ID Off steroids Monitor volumes and renal function --> D/W Tamara Rachel, continue Zaroxyln 10, add Lasix 40 IV x 1 today, may end up needing HD D/C fem CVC, place PICC - needs access, no family to consent F/U cards recs: will need further ischemia eval/cath once stabilized DVT Px: Hep SQ Monitor for bleeding F/U ENDO recs TF's as celestino FC, continue to discuss GOC D/W RN and RT @ bedside CCT 45 Critical Care - Objective Last 24 Hour Vital Signs Date Time Temp Pulse Resp B/P (MAP) Pulse Ox O2 Delivery O2 Flow Rate FiO2 02/27/19 08:37 138/69 02/27/19 08:37 75 138/69 02/27/19 08:36 75 138/69 02/27/19 08:00 77 02/27/19 08:00 40 02/27/19 08:00 98.5 75 28 141/64 (89) 97 02/27/19 07:54 Mechanical Ventilator 02/27/19 07:30 77 17 154/79 (104) 97 02/27/19 07:00 75 28 99 Mechanical Ventilator 40 02/27/19 07:00 24 Mechanical Ventilator 40 02/27/19 07:00 79 24 129/79 (96) 99 02/27/19 06:58 76 30 40 40 02/27/19 06:49 76 29 97 Mechanical Ventilator 40 02/27/19 06:30 73 24 150/64 (92) 98 02/27/19 06:00 24 Mechanical Ventilator 40 02/27/19 06:00 74 12 153/63 (93) 99 02/27/19 05:33 137/62 02/27/19 05:32 137/62 02/27/19 05:30 74 12 126/73 (90) 99 02/27/19 05:20 74 26 40 40 02/27/19 05:00 73 16 137/62 (87) 98 02/27/19 05:00 24 Mechanical Ventilator 40 02/27/19 04:30 73 13 136/71 (92) 99 02/27/19 04:00 71 02/27/19 04:00 24 Mechanical Ventilator 40 02/27/19 04:00 40 02/27/19 04:00 98.3 72 20 123/80 (94) 98 02/27/19 04:00 Mechanical Ventilator 02/27/19 03:30 72 24 133/87 (102) 100 02/27/19 03:29 73 31 40 40 02/27/19 03:00 61 24 121/61 (81) 99 02/27/19 03:00 24 Mechanical Ventilator 40 02/27/19 02:30 72 24 156/86 (109) 100 02/27/19 02:00 24 Mechanical Ventilator 40 02/27/19 02:00 71 13 136/63 (87) 100 02/27/19 01:48 74 24 100 Mechanical Ventilator 40 02/27/19 01:30 70 19 124/72 (89) 100 02/27/19 01:29 69 28 100 Mechanical Ventilator 40 02/27/19 01:29 70 29 40 40 02/27/19 01:00 24 Mechanical Ventilator 40 02/27/19 01:00 71 12 129/75 (93) 96 02/27/19 00:30 71 19 126/72 (90) 99 02/27/19 00:06 131/65 02/27/19 00:00 Mechanical Ventilator 02/27/19 00:00 24 Mechanical Ventilator 40 02/27/19 00:00 98.9 67 22 131/65 (87) 100 02/27/19 00:00 40 02/27/19 00:00 65 02/26/19 23:30 67 23 126/92 (103) 98 02/26/19 23:00 62 20 122/63 (82) 100 02/26/19 23:00 24 Mechanical Ventilator 40 02/26/19 22:46 62 26 40 40 02/26/19 22:30 62 21 122/64 (83) 99 02/26/19 22:00 24 Mechanical Ventilator 40 02/26/19 22:00 61 24 119/61 (80) 99 02/26/19 21:30 63 19 120/61 (80) 99 02/26/19 21:08 63 24 40 40 02/26/19 21:05 24 Mechanical Ventilator 40 02/26/19 21:04 24 Mechanical Ventilator 40 02/26/19 21:04 130/60 02/26/19 21:00 63 22 130/60 (83) 99 02/26/19 21:00 24 Mechanical Ventilator 40 02/26/19 20:30 70 140/75 02/26/19 20:30 63 20 140/75 (96) 99 02/26/19 20:29 140/75 02/26/19 20:00 40 02/26/19 20:00 99.3 65 21 120/60 (80) 100 02/26/19 20:00 24 Mechanical Ventilator 40 02/26/19 20:00 63 02/26/19 20:00 Mechanical Ventilator 02/26/19 19:30 67 21 121/65 (83) 100 02/26/19 19:10 70 24 100 Mechanical Ventilator 40 02/26/19 19:00 70 24 137/63 (87) 100 02/26/19 19:00 24 Mechanical Ventilator 40 02/26/19 19:00 71 24 100 Mechanical Ventilator 40 02/26/19 19:00 71 24 40 40 02/26/19 18:00 24 Mechanical Ventilator 40 02/26/19 18:00 72 24 131/66 (87) 100 02/26/19 17:41 24 Mechanical Ventilator 40 02/26/19 17:41 132/60 02/26/19 17:17 68 24 40 02/26/19 17:00 68 24 119/59 (79) 98 02/26/19 17:00 24 Mechanical Ventilator 40 02/26/19 16:00 98.6 73 24 113/85 (94) 98 02/26/19 16:00 Mechanical Ventilator Mechanical Ventilator 02/26/19 16:00 24 Mechanical Ventilator 40 02/26/19 16:00 71 02/26/19 16:00 40 02/26/19 15:30 71 24 124/58 (80) 97 02/26/19 15:27 70 26 40 02/26/19 15:00 71 24 126/55 (78) 97 02/26/19 15:00 24 Mechanical Ventilator 40 02/26/19 14:30 70 24 127/55 (79) 97 02/26/19 14:00 66 24 115/51 (72) 97 02/26/19 14:00 24 Mechanical Ventilator 40 02/26/19 13:40 115/51 02/26/19 13:38 24 40 02/26/19 13:30 66 24 115/51 (72) 97 02/26/19 13:00 66 24 115/55 (75) 96 02/26/19 13:00 24 Mechanical Ventilator 40 02/26/19 12:53 70 24 98 Mechanical Ventilator 75.0 40 02/26/19 12:44 67 24 40 02/26/19 12:41 66 24 97 Mechanical Ventilator 75.0 40 02/26/19 12:30 65 24 117/63 (81) 97 02/26/19 12:00 71 02/26/19 12:00 40 02/26/19 12:00 24 Mechanical Ventilator 40 02/26/19 12:00 97.8 65 24 117/63 (81) 97 02/26/19 12:00 Mechanical Ventilator Mechanical Ventilator 02/26/19 11:30 65 24 117/52 (73) 97 02/26/19 11:30 118/52 02/26/19 11:22 65 24 40 02/26/19 11:00 66 24 121/55 (77) 97 02/26/19 11:00 24 Mechanical Ventilator 40 02/26/19 10:30 66 24 121/55 (77) 98 02/26/19 10:00 24 Mechanical Ventilator 40 02/26/19 10:00 66 24 122/94 (103) 98 02/26/19 09:30 68 24 135/58 (83) 98 02/26/19 09:21 75 28 40 02/26/19 09:00 73 24 128/102 (111) 98 02/26/19 09:00 24 Mechanical Ventilator 40 Status: sedated - intubated edematous Condition: critical, other - NGT ETT HEENT: atraumatic, normocephalic Neck: full ROM Lungs: rales Heart: HR/BP stable Abdomen: soft, non-tender, distended Extremities: edema - 2-3+, other - L fem CVC Accucheck: 153 Blood Sugars: BS controlled Critical Care - Subjective ROS Limited/Unobtainable: Yes ICU Day: 22 Intubation Day: 7 Condition: critical IV Access: central EKG Rhythm: Sinus Rhythm FI02: 40 Vent Support Breath Rate: 24 Vent Support Mode: AC Vent Tidal Volume: 550 Sputum Amount: Small PEEP: 5.0 PIP: 37 Tube Feeding Amount: 40 I&O: Intake and Output 02/26/19 02/27/19 19:00 07:00 Intake Total 2065.0500 ml 1473 ml Output Total 1360 ml 1145 ml Balance 705.0500 ml 328 ml Free Water 50 ml IV Total 1855.0500 ml 968 ml Tube Feeding 80 ml 455 ml Other 130 ml Output Urine Total 1160 ml 1145 ml Stool Total 200 ml Subjective: CONRAD CXR: PVC small b effusions ET-Tube: 7.5 ET Position: 24 Labs: Laboratory Tests Test 02/26/19 12:40 02/26/19 14:42 02/27/19 04:30 Arterial Blood pH 7.374 (7.350-7.450) Arterial Blood Partial Pressure CO2 34.7 mmHg (35.0-45.0) L Arterial Blood Partial Pressure O2 95.3 mmHg (75.0-100.0) Arterial Blood HCO3 19.8 mmol/L (22.0-26.0) L Arterial Blood Oxygen Saturation 96.6 % (95-100) Arterial Blood Base Excess -4.9 (-2-2) L Benny Test Positive Stool Occult Blood Pending White Blood Count 7.2 K/UL (4.8-10.8) Red Blood Count 3.06 M/UL (4.70-6.10) L Hemoglobin 8.7 G/DL (14.2-18.0) L Hematocrit 27.0 % (42.0-52.0) L Mean Corpuscular Volume 88 FL (80-99) Mean Corpuscular Hemoglobin 28.6 PG (27.0-31.0) Mean Corpuscular Hemoglobin Concent 32.4 G/DL (32.0-36.0) Red Cell Distribution Width 17.0 % (11.6-14.8) H Platelet Count 177 K/UL (150-450) Mean Platelet Volume 6.8 FL (6.5-10.1) Neutrophils (%) (Auto) 76.8 % (45.0-75.0) H Lymphocytes (%) (Auto) 10.7 % (20.0-45.0) L Monocytes (%) (Auto) 11.0 % (1.0-10.0) H Eosinophils (%) (Auto) 1.2 % (0.0-3.0) Basophils (%) (Auto) 0.4 % (0.0-2.0) Sodium Level 134 MMOL/L (136-145) L Potassium Level 5.1 MMOL/L (3.5-5.1) Chloride Level 100 MMOL/L (98-107) Carbon Dioxide Level 21 MMOL/L (21-32) Anion Gap 13 mmol/L (5-15) Blood Urea Nitrogen 73 mg/dL (7-18) H Creatinine 3.3 MG/DL (0.55-1.30) H Estimat Glomerular Filtration Rate 19.3 mL/min (>60) Glucose Level 151 MG/DL (74-106) H Calcium Level 8.2 MG/DL (8.5-10.1) L Total Bilirubin 0.3 MG/DL (0.2-1.0) Aspartate Amino Transf (AST/SGOT) 63 U/L (15-37) H Alanine Aminotransferase (ALT/SGPT) 54 U/L (12-78) Alkaline Phosphatase 113 U/L (46-116) Total Protein 5.8 G/DL (6.4-8.2) L Albumin 2.4 G/DL (3.4-5.0) L Globulin 3.4 g/dL Albumin/Globulin Ratio 0.7 (1.0-2.7) L Brett Meredith MD Feb 27, 2019 08:53
--- NOTE | 2019-02-27 09:10 | NUR ---
RESPIRATORY NOTES: Attempted to wean however patients WOB increases while on PS. Weaning criteria failed. RN leticia segura.
--- NOTE | 2019-02-27 09:23 | NUR ---
NURSE NOTES: Patient RASS -1 at this time. Fentanyl drip was paused for weaning trial and restarted 15 min later when patient failed weaning due to increased work of breathing. Patient will remain on fentanyl 300mcg/hr at this time and continue to be monitored for sedation level and blood pressure. Patient given multiple blood pressure PO medications this morning as well as Lasix IV.
[2019-02-27] MEDS: fentaNYL Citrate 2500mcg in NS 250ml IV SCH ×2 (09:57→19:21)
--- NOTE | 2019-02-27 10:00 | NUR ---
NURSE NOTES: Blood pressure 116/60, HR 71, RR 28, and oxygen saturation 97%. Patient restless at this time with -1 RASS score. Will continue to monitor blood pressure and administer Versed if applicable. Dr Douglas, Dr Meredith, Dr Mcdonald, Dr Costa, and Dr Ricketts have rounded on the patient. All have been given update on the patient's current condition. Patient condition is the same as yesterday. Dr Meredith ordered Lasix IV, abdominal x-ray, and thoracentesis and paracentesis evaluation. Dr Meredith notified that in the case that the patient needs the procedures, two doctors must consent that the patient needs the procedure since there is no family to consent. Will follow up with ultrasound.
[2019-02-27] MEDS: Midazolam 2mg/2ml Inj IVP PRN (11:05)
--- NOTE | 2019-02-27 12:00 | NUR ---
NURSE NOTES: Patient eyes closed at this time. Upon inspection, patient's lower sclera remains swollen and red but resolving. Patient is sedated at this time with fentanyl running at 300mcg/hr (30mL/hr). Patient showing no sign of acute distress at this time. Patient has RASS score of -1. Patient given Versed 1mg. Will continue to monitor and titrate fentanyl drip per protocol. Ventilator setting of AC 24, TV 550, FiO2 40%, and PEEP 5. Bilateral upper lung lobes inspiratory and expiratory rhonchi, lower lobes diminished and difficult to hear due to patient's abdominal distention. . Patient tolerating setting with oxygen saturation 97% at this time. Patient blood pressure 140/74, HR 67, RR 28, Temp 98.6. Patient NGT patent and verified with auscultation at this time. Patient feeding Nepro running at 40mL/hr with 10mL residual. Will increase to 43mL/hr at this time. Pitting edema on +3 to +4 on the lower extremities and pitting +2 to +3 on the upper extremities. Abdomen distention is non-pitting but tight. Petechiae still noted on the under arms. Scrotum swollen and non-pitting. Simon in place for urine retention and to monitor kidney function. Urine dark scott/pink with some sediment. Left femoral paulo catheter with pigtail running Zosyn at this time. Dressing dry and intact. PICC line being inserted at this time. Will await confirmation of placement. Left hand 22G PIV that is patent with good blood return, leaking slightly due to edema on the hand, and running fentanyl at 300mcg/hr at this time. Oral care and repositioning performed at this time.
--- NOTE | 2019-02-27 12:00 | NUR ---
RADIOLOGY: RT UPPER EXTREMITY PICC PLACED.
--- NOTE | 2019-02-27 12:00 | Diagnostic Imaging Report ---
Indication: Left lower extremity edema Technique: Grayscale and duplex images of the left lower extremity veins Comparison: 02/21/2019 Findings: Grayscale and duplex images demonstrate no evidence of intraluminal thrombus. Normal phasic Doppler waveforms, demonstrating normal augmentation response and no evidence of valvular insufficiency. There is marked edema of the subcutaneous fat Impression: Negative This agrees with the preliminary interpretation provided overnight by [facility] teleradiology service.
--- NOTE | 2019-02-27 12:02 | Cardiac Electrophysiology PN ---
Assessment/Plan Assessment/Plan 1. Non-ST elevation myocardial infarction with peak troponin of more than 10, down to 3.[address]-T wave abnormalities. Continue Lipitor, Imdur and metoprolol Hold off on Cardiac catheterization 2. Hypertension. Metoprolol 100 bid, Isordil 20 q6 and hydralazine 50 q 8 hr 3. Respiratory failure due to Multilobar Pneumonia. Extubated 02/19/19. Reintubated 02/20/19 Likely needs Tracheostomy 4. Hyperlipidemia. On Lipitor. 5. Human immunodeficiency virus. On anti-retroviral therapy with undetectable viral load. 6. ARF Cr 3 7. Bleeding from ETT and NG tube. S/P PRBC. Off Aspirin and Lovenox No further bleeding DW RN Subjective Subjective In ICU on the vent and fentanyl drip and agitated at times. In SR Objective Last 24 Hour Vital Signs Date Time Temp Pulse Resp B/P (MAP) Pulse Ox O2 Delivery O2 Flow Rate FiO2 02/27/19 11:00 71 29 40 02/27/19 11:00 69 28 125/77 (93) 98 02/27/19 11:00 24 Mechanical Ventilator 40 02/27/19 10:00 73 28 116/60 (78) 98 02/27/19 09:57 24 Mechanical Ventilator 40 02/27/19 09:05 77 30 40 02/27/19 09:00 77 28 151/76 (101) 97 02/27/19 09:00 24 Mechanical Ventilator 40 02/27/19 08:37 138/69 02/27/19 08:37 75 138/69 02/27/19 08:36 75 138/69 02/27/19 08:00 24 Mechanical Ventilator 40 02/27/19 08:00 77 02/27/19 08:00 40 02/27/19 08:00 98.5 75 28 141/64 (89) 97 02/27/19 07:54 Mechanical Ventilator 02/27/19 07:30 77 17 154/79 (104) 97 02/27/19 07:00 75 28 99 Mechanical Ventilator 40 02/27/19 07:00 24 Mechanical Ventilator 40 02/27/19 07:00 79 24 129/79 (96) 99 02/27/19 06:58 76 30 40 40 02/27/19 06:49 76 29 97 Mechanical Ventilator 40 02/27/19 06:30 73 24 150/64 (92) 98 02/27/19 06:00 24 Mechanical Ventilator 40 02/27/19 06:00 74 12 153/63 (93) 99 02/27/19 05:33 137/62 02/27/19 05:32 137/62 02/27/19 05:30 74 12 126/73 (90) 99 02/27/19 05:20 74 26 40 40 02/27/19 05:00 73 16 137/62 (87) 98 02/27/19 05:00 24 Mechanical Ventilator 40 02/27/19 04:30 73 13 136/71 (92) 99 02/27/19 04:00 71 02/27/19 04:00 24 Mechanical Ventilator 40 02/27/19 04:00 40 02/27/19 04:00 98.3 72 20 123/80 (94) 98 02/27/19 04:00 Mechanical Ventilator 02/27/19 03:30 72 24 133/87 (102) 100 02/27/19 03:29 73 31 40 40 02/27/19 03:00 61 24 121/61 (81) 99 02/27/19 03:00 24 Mechanical Ventilator 40 02/27/19 02:30 72 24 156/86 (109) 100 02/27/19 02:00 24 Mechanical Ventilator 40 02/27/19 02:00 71 13 136/63 (87) 100 02/27/19 01:48 74 24 100 Mechanical Ventilator 40 02/27/19 01:30 70 19 124/72 (89) 100 02/27/19 01:29 69 28 100 Mechanical Ventilator 40 02/27/19 01:29 70 29 40 40 02/27/19 01:00 24 Mechanical Ventilator 40 02/27/19 01:00 71 12 129/75 (93) 96 02/27/19 00:30 71 19 126/72 (90) 99 02/27/19 00:06 131/65 02/27/19 00:00 Mechanical Ventilator 02/27/19 00:00 24 Mechanical Ventilator 40 02/27/19 00:00 98.9 67 22 131/65 (87) 100 02/27/19 00:00 40 02/27/19 00:00 65 02/26/19 23:30 67 23 126/92 (103) 98 7/8/19 23:00 62 20 122/63 (82) 100 02/26/19 23:00 24 Mechanical Ventilator 40 02/26/19 22:46 62 26 40 40 02/26/19 22:30 62 21 122/64 (83) 99 02/26/19 22:00 24 Mechanical Ventilator 40 02/26/19 22:00 61 24 119/61 (80) 99 02/26/19 21:30 63 19 120/61 (80) 99 02/26/19 21:08 63 24 40 40 02/26/19 21:05 24 Mechanical Ventilator 40 02/26/19 21:04 24 Mechanical Ventilator 40 02/26/19 21:04 130/60 02/26/19 21:00 63 22 130/60 (83) 99 02/26/19 21:00 24 Mechanical Ventilator 40 02/26/19 20:30 70 140/75 02/26/19 20:30 63 20 140/75 (96) 99 02/26/19 20:29 140/75 02/26/19 20:00 40 02/26/19 20:00 99.3 65 21 120/60 (80) 100 02/26/19 20:00 24 Mechanical Ventilator 40 02/26/19 20:00 63 02/26/19 20:00 Mechanical Ventilator 02/26/19 19:30 67 21 121/65 (83) 100 02/26/19 19:10 70 24 100 Mechanical Ventilator 40 02/26/19 19:00 70 24 137/63 (87) 100 02/26/19 19:00 24 Mechanical Ventilator 40 02/26/19 19:00 71 24 100 Mechanical Ventilator 40 02/26/19 19:00 71 24 40 40 02/26/19 18:00 24 Mechanical Ventilator 40 02/26/19 18:00 72 24 131/66 (87) 100 02/26/19 17:41 24 Mechanical Ventilator 40 02/26/19 17:41 132/60 02/26/19 17:17 68 24 40 02/26/19 17:00 68 24 119/59 (79) 98 02/26/19 17:00 24 Mechanical Ventilator 40 02/26/19 16:00 98.6 73 24 113/85 (94) 98 02/26/19 16:00 Mechanical Ventilator Mechanical Ventilator 02/26/19 16:00 24 Mechanical Ventilator 40 02/26/19 16:00 71 02/26/19 16:00 40 02/26/19 15:30 71 24 124/58 (80) 97 02/26/19 15:27 70 26 40 02/26/19 15:00 71 24 126/55 (78) 97 02/26/19 15:00 24 Mechanical Ventilator 40 02/26/19 14:30 70 24 127/55 (79) 97 02/26/19 14:00 66 24 115/51 (72) 97 02/26/19 14:00 24 Mechanical Ventilator 40 02/26/19 13:40 115/51 02/26/19 13:38 24 40 02/26/19 13:30 66 24 115/51 (72) 97 02/26/19 13:00 66 24 115/55 (75) 96 02/26/19 13:00 24 Mechanical Ventilator 40 02/26/19 12:53 70 24 98 Mechanical Ventilator 75.0 40 02/26/19 12:44 67 24 40 02/26/19 12:41 66 24 97 Mechanical Ventilator 75.0 40 02/26/19 12:30 65 24 117/63 (81) 97 Intake and Output 02/26/19 02/27/19 19:00 07:00 Intake Total 2065.0500 ml 1473 ml Output Total 1360 ml 1145 ml Balance 705.0500 ml 328 ml Free Water 50 ml IV Total 1855.0500 ml 968 ml Tube Feeding 80 ml 455 ml Other 130 ml Output Urine Total 1160 ml 1145 ml Stool Total 200 ml Laboratory Tests Test 02/26/19 12:40 02/26/19 14:42 02/27/19 04:30 Arterial Blood pH 7.374 (7.350-7.450) Arterial Blood Partial Pressure CO2 34.7 mmHg (35.0-45.0) L Arterial Blood Partial Pressure O2 95.3 mmHg (75.0-100.0) Arterial Blood HCO3 19.8 mmol/L (22.0-26.0) L Arterial Blood Oxygen Saturation 96.6 % (95-100) Arterial Blood Base Excess -4.9 (-2-2) L Benny Test Positive Stool Occult Blood Pending White Blood Count 7.2 K/UL (4.8-10.8) Red Blood Count 3.06 M/UL (4.70-6.10) L Hemoglobin 8.7 G/DL (14.2-18.0) L Hematocrit 27.0 % (42.0-52.0) L Mean Corpuscular Volume 88 FL (80-99) Mean Corpuscular Hemoglobin 28.6 PG (27.0-31.0) Mean Corpuscular Hemoglobin Concent 32.4 G/DL (32.0-36.0) Red Cell Distribution Width 17.0 % (11.6-14.8) H Platelet Count 177 K/UL (150-450) Mean Platelet Volume 6.8 FL (6.5-10.1) Neutrophils (%) (Auto) 76.8 % (45.0-75.0) H Lymphocytes (%) (Auto) 10.7 % (20.0-45.0) L Monocytes (%) (Auto) 11.0 % (1.0-10.0) H Eosinophils (%) (Auto) 1.2 % (0.0-3.0) Basophils (%) (Auto) 0.4 % (0.0-2.0) Sodium Level 134 MMOL/L (136-145) L Potassium Level 5.1 MMOL/L (3.5-5.1) Chloride Level 100 MMOL/L (98-107) Carbon Dioxide Level 21 MMOL/L (21-32) Anion Gap 13 mmol/L (5-15) Blood Urea Nitrogen 73 mg/dL (7-18) H Creatinine 3.3 MG/DL (0.55-1.30) H Estimat Glomerular Filtration Rate 19.3 mL/min (>60) Glucose Level 151 MG/DL (74-106) H Calcium Level 8.2 MG/DL (8.5-10.1) L Total Bilirubin 0.3 MG/DL (0.2-1.0) Aspartate Amino Transf (AST/SGOT) 63 U/L (15-37) H Alanine Aminotransferase (ALT/SGPT) 54 U/L (12-78) Alkaline Phosphatase 113 U/L (46-116) Total Protein 5.8 G/DL (6.4-8.2) L Albumin 2.4 G/DL (3.4-5.0) L Globulin 3.4 g/dL Albumin/Globulin Ratio 0.7 (1.0-2.7) L Objective HEAD AND NECK: No JVD.Orally intubated with NG tube LUNGS: Coarse rhonchi. CARDIOVASCULAR: Regular S1 and S2 with no gallop or murmur. ABDOMEN: Soft. EXTREMITIES: 1 plus pitting edema. Murray Francois MD Feb 27, 2019 12:02
--- NOTE | 2019-02-27 12:46 | Diagnostic Imaging Report ---
Indication: Abdominal pain Technique: Supine view of the abdomen Comparison: 02/09/2019 limited study Findings: Again demonstrated is a nasogastric tube, tip which projects at the level gastric body. Considerable gas is seen in nondilated colon. There are a few equivocally slightly prominent small bowel loops as well. There is a Simon catheter in place. There is a left groin temporary dialysis catheter. Impression: No acute process. Findings as noted
--- NOTE | 2019-02-27 13:03 | Hematology/Onc Progress Note ---
Assessment/Plan Assessment/Plan ASSESSMENT AND RECOMMENDATIONS # Anemia of chronic disease due to underlying chronic medical issues, multifactorial --> Anemia workup has been reviewed. Ferritin 182 --> No evidence of hemolysis is noted, peripheral smear has been reviewed. --> Hgb goal >7. Transfuse prn. --> Epogen or iron at this time is not particularly indicated --> Medications have been reviewed --> Stool OB negative --> bone marrow biopsy is not indicated given the other more likely causes --> Blood tx: 1 unit on 02/10/19, --> Hgb trend: 7.6-->8.2-->9.4-->8.4-->8.2 -->8.9-->10.3->7.9-->8.1->7.8-->8.7 # Thrombocytopenia - potential causes multifactorial, likely related to HIV status --> Hep panel pending and HIV confirmed positive --> US abd to evaluate for cirrhosis hows hepatosplenomegaly --> Peripheral smear ordered to evaluate for blasts /schistocytes does not show any --> abx and other meds have been reviewed --> ok for ppx if plt >50k w/ either heparin or lovenox --> Transfuse if Plt < 20k and fever, or if Plt < 10k without fever --> Plt trend: 153-->257-->224-->205-->253-->310-->201->177 --> WILLIAM screen negative # Multilobar pneumonia in patient with HIV. Recs per ID. --> Broad sp atbx started. Continue Zosyn, Vancomycin and Azithromycin --> Droplet precaution # Hypoxemic respiratory failure. Pulm is following, appreciate recs. --> Bipap as needed, transition to O2 via NC when able --> Due to pneumonia, on abx --> now intubated 02/20 --> may need trach # Chest pain. 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 --> Trend troponin x3 --> NGT prn # HIV. --> Continue HARRT --> VL is undetectable per patient report. # HTN --> Resume home medication # DVT and GI ppx The time the note is entered does not reflect the time the patient was examined. I greatly appreciate the consultation. Subjective Gastrointestinal/Abdominal: Denies: no symptoms, abdomen distended, abdominal pain, black stools, tarry stools, blood in stool, constipated, diarrhea, difficulty swallowing, nausea, poor appetite, poor fluid intake, rectal bleeding , vomiting, other Genitourinary: Denies: no symptoms, burning, discharge, frequency, flank pain, hematuria, incontinence, pain, urgency, other Neurologic/Psychiatric: Denies: no symptoms, anxiety, depressed, emotional problems, headache, numbness, paresthesia, pre-existing deficit, seizure, tingling, tremors, weakness, other Endocrine: Denies: no symptoms, excessive sweating, flushing, intolerance to cold, intolerance to heat, increased hunger, increased thirst, increased urine, unexplained weight gain, unexplained weight loss, other Hematologic/Lymphatic: Denies: no symptoms, anemia, easy bleeding, easy bruising, adenopathy, other Allergies: Coded Allergies: No Known Allergies (Unverified , 02/05/13) Subjective Subjective 02/11: Hgb yesterday was 7.6, s/p 1 unit prbc. Current hgb at 8.2. Pt attempted to pull out tubes per nursing team, soft restraints applied. 02/13: Pt in ICU and intubated. Pt currently sedated. Current hgb 9.4. 02/14: Pt remains in icu, sedated. Hgb stable. 02/15: Remains in icu, lethargic. No acute events. Hgb stable. 02/16: Remains in icu. CXR today shows worsening CHF/pulmonary edema. Pt wake and sedation decrease for weaning. 02/18: Remains in icu. Pt on vent. CXR today shows pulmonary edema, persistent small left pleural effusion. 02/19: Remains in the icu, now extubated, seen by pulm, labs reviewed 02/20: Remains in ICU, Pt intubated, CXR today shows Congestive heart failure with interval worsening 02/21: reintubated, tolerating vent well, seen by pulm/cc 02/23: pt remains on fently gtt, prn ativan, currenlty intubated on vent, no further bleeding, d/w RN> 02/24:failed weaning, fentanyl drip decreased. 02/25:pt seen in am,sedated. 02/27: remains intubated, may need trach, nobleeding today Objective Objective Current Medications Medications (Trade) Dose Ordered Sig/Marquis Route PRN Reason Start Time Stop Time Status Last Admin Dose Admin Acetaminophen (Tylenol) 650 mg Q4H PRN ORAL Mild Pain (Pain Scale 1-3) 02/07/19 11:15 03/08/19 17:29 02/22/19 14:37 Acetaminophen/ Butalbital/ Caffeine (Fioricet) 1 tab Q8H PRN ORAL For Headache 02/08/19 17:15 03/10/19 17:14 Albuterol/ Ipratropium (Albuterol/ Ipratropium) 3 ml Q4H PRN HHN Shortness of Breath 02/26/19 12:30 03/03/19 12:29 Albuterol/ Ipratropium (Albuterol/ Ipratropium) 3 ml Q6HRT HHN 02/26/19 13:00 03/03/19 12:59 02/27/19 07:01 Amlodipine Besylate (Norvasc) 10 mg DAILY NG 02/15/19 09:00 03/14/19 15:59 02/27/19 08:37 Artificial Tears (Lacri-Lube) 1 applic AC+HS BOTH EYES 02/18/19 06:30 03/20/19 06:29 02/27/19 12:09 Bisacodyl (Dulcolax) 5 mg DAILYPRN PRN ORAL Constipation 02/08/19 17:15 03/10/19 17:14 02/25/19 12:45 Chlorhexidine Gluconate (Jessy-Hex 2%) 1 applic DAILY@1999 TOPIC 02/25/19 20:00 03/27/19 19:59 02/26/19 20:29 Clonidine HCl (Catapres Tab) 0.1 mg EVERY 12 HOURS NG 02/25/19 21:00 03/19/19 13:59 02/27/19 08:37 Dextrose (Dextrose 50%) 25 ml Q30M PRN IV Hypoglycemia 02/26/19 07:30 03/28/19 07:29 Dextrose (Dextrose 50%) 50 ml Q30M PRN IV Hypoglycemia 02/26/19 07:30 03/28/19 07:29 Docusate Sodium (Colace) 100 mg TID GT 02/12/19 18:00 03/12/19 08:59 02/26/19 08:47 Fentanyl Citrate 2500 mcg/Sodium Chloride 250 ml @ 0 mls/hr Q24H IV 02/23/19 20:30 03/02/19 20:29 02/27/19 09:57 Fluconazole/ Sodium Chloride 100 ml @ 100 mls/hr Q24H IV 02/26/19 18:00 03/05/19 17:59 02/26/19 17:41 Guaifenesin (Mucinex ER) 600 mg TWICE A DAY ORAL 02/07/19 18:00 03/09/19 08:59 02/27/19 08:36 Heparin Sodium (Porcine) (Heparin 5000 units/ml) 5,000 units EVERY 12 HOURS SUBQ 02/26/19 21:00 03/28/19 20:59 02/27/19 08:42 Heparin Sodium/ Sodium Chloride (Heparin 1000 units/500ml Premix) 1,000 unit ONCE PRN IV picc line placement 02/25/19 14:45 02/27/19 14:44 Hydralazine HCl (Apresoline) 10 mg Q4H PRN IV bp over 165 syst 02/17/19 10:15 03/19/19 10:14 02/19/19 14:45 Hydralazine HCl (Apresoline) 50 mg Q8HR NG 02/22/19 14:00 03/21/19 21:59 02/27/19 05:33 Insulin Aspart (NovoLOG) EVERY 6 HOURS SUBQ 02/26/19 12:00 03/28/19 11:59 02/27/19 05:34 Isosorbide Dinitrate (Isordil) 20 mg Q6HR NG 02/22/19 12:00 03/15/19 12:59 02/27/19 12:09 Lidocaine HCl (Xylocaine 1% 30ml) 30 ml ONCE PRN INJ picc line placement 02/25/19 14:45 02/27/19 14:44 Metoclopramide HCl (Reglan) 5 mg Q8H IVP 02/26/19 09:00 03/28/19 08:59 02/27/19 08:36 Metolazone (Zaroxolyn) 10 mg DAILY NG 02/19/19 10:00 03/21/19 09:59 02/27/19 08:37 Metoprolol Tartrate (Lopressor) 100 mg Q12HR ORAL 02/22/19 21:00 03/08/19 20:59 02/27/19 08:36 Midazolam HCl (Versed 2mg/2ml vial) 1 mg Q2H PRN IVP Agitation 02/13/19 08:45 03/15/19 08:44 02/27/19 11:05 Neomycin/ Polymyxin/ Dexamethasone (Maxitrol Opth Oint) 1 applic BEDTIME BOTH EYES 02/18/19 21:00 03/20/19 20:59 02/26/19 20:29 Nitroglycerin (Ntg) 0.4 mg Q5M PRN SL Prn Chest Pain 02/07/19 11:00 03/08/19 17:29 02/08/19 07:42 Ondansetron HCl (Zofran) 4 mg Q6H PRN IVP Nausea & Vomiting 02/07/19 11:15 03/08/19 11:14 02/09/19 00:58 Pantoprazole (Protonix) 40 mg DAILY IVP 02/26/19 09:00 03/24/19 20:59 02/27/19 08:36 Patient Own Medication (Patient's Own Med) 1 ea BID ORAL 02/07/19 18:00 03/09/19 17:59 02/27/19 08:36 Patient Own Medication (Patient's Own Med) 1 ea Q48H ORAL 02/18/19 09:00 03/20/19 08:59 02/26/19 08:47 Patient Own Medication (Patient's Own Med) 2 ea DAILY ORAL 02/08/19 09:00 03/10/19 08:59 02/27/19 08:36 Piperacillin Sod/ Tazobactam Sod 3.375 gm/Sodium Chloride 110 ml @ 27.5 mls/hr EVERY 12 HOURS IVPB 02/25/19 21:00 03/01/19 21:59 02/27/19 08:36 Polyethylene Glycol (Miralax) 17 gm BEDTIME ORAL 02/08/19 21:00 03/10/19 20:59 02/25/19 20:56 Sennosides (Senokot) 8.6 mg DAILY ORAL 02/13/19 12:00 03/15/19 11:59 02/26/19 08:48 Trimethoprim/ Sulfamethoxazole 25 ml/Dextrose 575 ml @ 383.333 mls/hr [id number] BACTRIM IV 02/26/19 16:00 03/05/19 15:59 02/27/19 08:35 Last 24 Hour Vital Signs Date Time Temp Pulse Resp B/P (MAP) Pulse Ox O2 Delivery O2 Flow Rate FiO2 02/27/19 12:09 140/74 02/27/19 12:00 98.6 67 28 140/74 (96) 99 02/27/19 12:00 40 02/27/19 12:00 68 02/27/19 12:00 Mechanical Ventilator 02/27/19 11:00 71 29 40 02/27/19 11:00 69 28 125/77 (93) 98 02/27/19 11:00 24 Mechanical Ventilator 40 02/27/19 10:00 73 28 116/60 (78) 98 02/27/19 09:57 24 Mechanical Ventilator 40 02/27/19 09:05 77 30 40 02/27/19 09:00 77 28 151/76 (101) 97 02/27/19 09:00 24 Mechanical Ventilator 40 02/27/19 08:37 138/69 02/27/19 08:37 75 138/69 02/27/19 08:36 75 138/69 02/27/19 08:00 24 Mechanical Ventilator 40 02/27/19 08:00 77 02/27/19 08:00 40 02/27/19 08:00 98.5 75 28 141/64 (89) 97 02/27/19 07:54 Mechanical Ventilator 02/27/19 07:30 77 17 154/79 (104) 97 02/27/19 07:00 75 28 99 Mechanical Ventilator 40 02/27/19 07:00 24 Mechanical Ventilator 40 02/27/19 07:00 79 24 129/79 (96) 99 02/27/19 06:58 76 30 40 40 02/27/19 06:49 76 29 97 Mechanical Ventilator 40 02/27/19 06:30 73 24 150/64 (92) 98 02/27/19 06:00 24 Mechanical Ventilator 40 02/27/19 06:00 74 12 153/63 (93) 99 02/27/19 05:33 137/62 02/27/19 05:32 137/62 02/27/19 05:30 74 12 126/73 (90) 99 02/27/19 05:20 74 26 40 40 02/27/19 05:00 73 16 137/62 (87) 98 02/27/19 05:00 24 Mechanical Ventilator 40 02/27/19 04:30 73 13 136/71 (92) 99 02/27/19 04:00 71 02/27/19 04:00 24 Mechanical Ventilator 40 02/27/19 04:00 40 02/27/19 04:00 98.3 72 20 123/80 (94) 98 02/27/19 04:00 Mechanical Ventilator 02/27/19 03:30 72 24 133/87 (102) 100 02/27/19 03:29 73 31 40 40 02/27/19 03:00 61 24 121/61 (81) 99 02/27/19 03:00 24 Mechanical Ventilator 40 02/27/19 02:30 72 24 156/86 (109) 100 02/27/19 02:00 24 Mechanical Ventilator 40 02/27/19 02:00 71 13 136/63 (87) 100 02/27/19 01:48 74 24 100 Mechanical Ventilator 40 02/27/19 01:30 70 19 124/72 (89) 100 02/27/19 01:29 69 28 100 Mechanical Ventilator 40 02/27/19 01:29 70 29 40 40 02/27/19 01:00 24 Mechanical Ventilator 40 02/27/19 01:00 71 12 129/75 (93) 96 02/27/19 00:30 71 19 126/72 (90) 99 02/27/19 00:06 131/65 02/27/19 00:00 Mechanical Ventilator 02/27/19 00:00 24 Mechanical Ventilator 40 02/27/19 00:00 98.9 67 22 131/65 (87) 100 02/27/19 00:00 40 02/27/19 00:00 65 02/26/19 23:30 67 23 126/92 (103) 98 02/26/19 23:00 62 20 122/63 (82) 100 02/26/19 23:00 24 Mechanical Ventilator 40 02/26/19 22:46 62 26 40 40 02/26/19 22:30 62 21 122/64 (83) 99 02/26/19 22:00 24 Mechanical Ventilator 40 02/26/19 22:00 61 24 119/61 (80) 99 02/26/19 21:30 63 19 120/61 (80) 99 02/26/19 21:08 63 24 40 40 02/26/19 21:05 24 Mechanical Ventilator 40 02/26/19 21:04 24 Mechanical Ventilator 40 02/26/19 21:04 130/60 02/26/19 21:00 63 22 130/60 (83) 99 02/26/19 21:00 24 Mechanical Ventilator 40 02/26/19 20:30 70 140/75 02/26/19 20:30 63 20 140/75 (96) 99 02/26/19 20:29 140/75 02/26/19 20:00 40 02/26/19 20:00 99.3 65 21 120/60 (80) 100 02/26/19 20:00 24 Mechanical Ventilator 40 02/26/19 20:00 63 02/26/19 20:00 Mechanical Ventilator 02/26/19 19:30 67 21 121/65 (83) 100 02/26/19 19:10 70 24 100 Mechanical Ventilator 40 02/26/19 19:00 70 24 137/63 (87) 100 02/26/19 19:00 24 Mechanical Ventilator 40 02/26/19 19:00 71 24 100 Mechanical Ventilator 40 02/26/19 19:00 71 24 40 40 02/26/19 18:00 24 Mechanical Ventilator 40 02/26/19 18:00 72 24 131/66 (87) 100 02/26/19 17:41 24 Mechanical Ventilator 40 02/26/19 17:41 132/60 02/26/19 17:17 68 24 40 02/26/19 17:00 68 24 119/59 (79) 98 02/26/19 17:00 24 Mechanical Ventilator 40 02/26/19 16:00 98.6 73 24 113/85 (94) 98 02/26/19 16:00 Mechanical Ventilator Mechanical Ventilator 02/26/19 16:00 24 Mechanical Ventilator 40 02/26/19 16:00 71 02/26/19 16:00 40 02/26/19 15:30 71 24 124/58 (80) 97 02/26/19 15:27 70 26 40 02/26/19 15:00 71 24 126/55 (78) 97 02/26/19 15:00 24 Mechanical Ventilator 40 02/26/19 14:30 70 24 127/55 (79) 97 02/26/19 14:00 66 24 115/51 (72) 97 19 14:00 24 Mechanical Ventilator 40 02/26/19 13:40 115/51 02/26/19 13:38 24 40 02/26/19 13:30 66 24 115/51 (72) 97 02/26/19 13:00 66 24 115/55 (75) 96 02/26/19 13:00 24 Mechanical Ventilator 40 02/26/19 12:53 70 24 98 Mechanical Ventilator 75.0 40 02/26/19 12:44 67 24 40 02/26/19 12:41 66 24 97 Mechanical Ventilator 75.0 40 02/26/19 12:30 65 24 117/63 (81) 97 02/26/19 12:00 71 02/26/19 12:00 40 02/26/19 12:00 24 Mechanical Ventilator 40 02/26/19 12:00 97.8 65 24 117/63 (81) 97 02/26/19 12:00 Mechanical Ventilator Mechanical Ventilator 02/26/19 11:30 65 24 117/52 (73) 97 02/26/19 11:30 118/52 02/26/19 11:22 65 24 40 02/26/19 11:00 66 24 121/55 (77) 97 02/26/19 11:00 24 Mechanical Ventilator 40 02/26/19 10:30 66 24 121/55 (77) 98 02/26/19 10:00 24 Mechanical Ventilator 40 02/26/19 10:00 66 24 122/94 (103) 98 02/26/19 09:30 68 24 135/58 (83) 98 02/26/19 09:21 75 28 40 02/26/19 09:00 73 24 128/102 (111) 98 02/26/19 09:00 24 Mechanical Ventilator 40 02/26/19 08:49 127/60 02/26/19 08:48 72 127/60 02/26/19 08:48 72 127/60 02/26/19 08:30 71 24 139/72 (94) 98 02/26/19 08:00 Mechanical Ventilator Mechanical Ventilator 02/26/19 08:00 97.6 70 24 123/57 (79) 97 02/26/19 08:00 71 02/26/19 08:00 24 Mechanical Ventilator 40 02/26/19 08:00 40 02/26/19 07:30 69 24 142/66 (91) 97 02/26/19 07:03 63 24 40 02/26/19 07:00 69 24 123/63 (83) 97 02/26/19 07:00 24 Mechanical Ventilator 40 02/26/19 06:30 62 23 107/49 (68) 97 02/26/19 06:00 22 Mechanical Ventilator 40 02/26/19 06:00 64 18 111/49 (69) 98 02/26/19 05:44 117/56 02/26/19 05:44 117/56 02/26/19 05:30 66 17 117/56 (76) 100 02/26/19 05:16 67 24 40 02/26/19 05:00 68 19 122/63 (82) 99 02/26/19 05:00 24 Mechanical Ventilator 40 02/26/19 04:34 24 Mechanical Ventilator 40 02/26/19 04:30 66 24 128/65 (86) 99 02/26/19 04:00 65 02/26/19 04:00 24 Mechanical Ventilator 40 02/26/19 04:00 40 02/26/19 04:00 97.5 68 19 129/67 (87) 99 02/26/19 04:00 Mechanical Ventilator Mechanical Ventilator 02/26/19 03:30 66 14 124/71 (88) 99 02/26/19 03:00 67 19 119/59 (79) 100 02/26/19 03:00 23 Mechanical Ventilator 40 02/26/19 02:54 68 24 40 02/26/19 02:30 65 20 153/51 (85) 99 02/26/19 02:00 67 20 123/72 (89) 99 02/26/19 02:00 22 Mechanical Ventilator 40 02/26/19 01:30 63 24 118/67 (84) 99 02/26/19 01:05 65 24 40 02/26/19 01:00 66 20 124/68 (86) 98 02/26/19 01:00 24 Mechanical Ventilator 40 02/26/19 00:30 66 12 109/60 (76) 97 02/26/19 00:00 40 02/26/19 00:00 97.2 63 24 114/52 (72) 97 02/26/19 00:00 Mechanical Ventilator Mechanical Ventilator 02/26/19 00:00 24 Mechanical Ventilator 40 02/26/19 00:00 109/60 02/26/19 00:00 63 02/25/19 23:30 62 20 113/52 (72) 97 02/25/19 23:00 63 22 112/55 (74) 98 02/25/19 23:00 24 Mechanical Ventilator 40 02/25/19 22:58 63 24 40 02/25/19 22:30 63 23 109/59 (76) 99 02/25/19 22:00 66 15 130/74 (92) 98 02/25/19 22:00 24 Mechanical Ventilator 40 02/25/19 21:30 69 19 134/61 (85) 99 02/25/19 21:12 78 25 40 02/25/19 21:11 69 122/57 02/25/19 21:11 122/57 02/25/19 21:00 122/57 02/25/19 21:00 24 Mechanical Ventilator 40 02/25/19 21:00 71 15 122/57 (78) 96 02/25/19 20:30 68 16 120/74 (89) 100 02/25/19 20:00 97.7 68 18 109/65 (80) 100 02/25/19 20:00 24 Mechanical Ventilator 40 02/25/19 20:00 40 02/25/19 20:00 Mechanical Ventilator Mechanical Ventilator 02/25/19 20:00 68 02/25/19 19:30 69 17 94/79 (84) 99 02/25/19 19:14 24 Mechanical Ventilator 40 02/25/19 19:11 70 28 40 02/25/19 19:00 69 16 110/64 (79) 99 02/25/19 19:00 24 Mechanical Ventilator 40 02/25/19 18:00 24 Mechanical Ventilator 40 02/25/19 18:00 67 15 124/72 (89) 100 02/25/19 17:11 110/55 02/25/19 17:00 Mechanical Ventilator 40 02/25/19 17:00 69 19 124/65 (84) 100 02/25/19 16:35 71 27 40 02/25/19 16:00 97.6 69 19 128/76 (93) 100 02/25/19 16:00 62 02/25/19 16:00 Mechanical Ventilator Mechanical Ventilator 02/25/19 16:00 24 Mechanical Ventilator 40 02/25/19 16:00 40 02/25/19 15:00 Mechanical Ventilator 40 02/25/19 15:00 61 24 110/55 (73) 100 02/25/19 14:55 61 24 40 02/25/19 14:00 68 24 113/64 (80) 100 02/25/19 14:00 Mechanical Ventilator 40 02/25/19 13:10 115/56 Intake and Output 02/26/19 02/27/19 19:00 07:00 Intake Total 2065.0500 ml 1473 ml Output Total 1360 ml 1145 ml Balance 705.0500 ml 328 ml Free Water 50 ml IV Total 1855.0500 ml 968 ml Tube Feeding 80 ml 455 ml Other 130 ml Output Urine Total 1160 ml 1145 ml Stool Total 200 ml Labs Test 02/25/19 04:40 02/25/19 10:00 02/26/19 04:22 02/26/19 12:40 White Blood Count 6.0 K/UL (4.8-10.8) 5.9 K/UL (4.8-10.8) Red Blood Count 3.07 M/UL (4.70-6.10) 3.06 M/UL (4.70-6.10) Hemoglobin 8.8 G/DL (14.2-18.0) 8.7 G/DL (14.2-18.0) Hematocrit 27.5 % (42.0-52.0) 27.1 % (42.0-52.0) Mean Corpuscular Volume 90 FL (80-99) 89 FL (80-99) Mean Corpuscular Hemoglobin 28.6 PG (27.0-31.0) 28.6 PG (27.0-31.0) Mean Corpuscular Hemoglobin Concent 32.0 G/DL (32.0-36.0) 32.2 G/DL (32.0-36.0) Red Cell Distribution Width 17.2 % (11.6-14.8) 16.7 % (11.6-14.8) Platelet Count 193 K/UL (150-450) 180 K/UL (150-450) Mean Platelet Volume 6.2 FL (6.5-10.1) 6.3 FL (6.5-10.1) Neutrophils (%) (Auto) % (45.0-75.0) % (45.0-75.0) Lymphocytes (%) (Auto) % (20.0-45.0) % (20.0-45.0) Monocytes (%) (Auto) % (1.0-10.0) % (1.0-10.0) Eosinophils (%) (Auto) % (0.0-3.0) % (0.0-3.0) Basophils (%) (Auto) % (0.0-2.0) % (0.0-2.0) Differential Total Cells Counted 100 Neutrophils % (Manual) 90 % (45-75) Lymphocytes % (Manual) 7 % (20-45) Monocytes % (Manual) 3 % (1-10) Eosinophils % (Manual) 0 % (0-3) Basophils % (Manual) 0 % (0-2) Band Neutrophils 0 % (0-8) Platelet Estimate Adequate Platelet Morphology Normal Anisocytosis 1+ Sodium Level 134 MMOL/L (136-145) 129 MMOL/L (136-145) Potassium Level 5.3 MMOL/L (3.5-5.1) 5.5 MMOL/L (3.5-5.1) Chloride Level 100 MMOL/L (98-107) 97 MMOL/L (98-107) Carbon Dioxide Level 23 MMOL/L (21-32) 22 MMOL/L (21-32) Anion Gap 11 mmol/L (5-15) 10 mmol/L (5-15) Blood Urea Nitrogen 66 mg/dL (7-18) 72 mg/dL (7-18) Creatinine 2.9 MG/DL (0.55-1.30) 3.0 MG/DL (0.55-1.30) Estimat Glomerular Filtration Rate 22.4 mL/min (>60) 21.5 mL/min (>60) Glucose Level 75 MG/DL (74-106) 93 MG/DL (74-106) Calcium Level 8.4 MG/DL (8.5-10.1) 8.1 MG/DL (8.5-10.1) Phosphorus Level 5.8 MG/DL (2.5-4.9) 5.5 MG/DL (2.5-4.9) Magnesium Level 2.2 MG/DL (1.8-2.4) 2.3 MG/DL (1.8-2.4) Total Bilirubin 0.4 MG/DL (0.2-1.0) 0.4 MG/DL (0.2-1.0) Direct Bilirubin 0.3 MG/DL (0.0-0.3) Aspartate Amino Transf (AST/SGOT) 57 U/L (15-37) 64 U/L (15-37) Alanine Aminotransferase (ALT/SGPT) 59 U/L (12-78) 54 U/L (12-78) Alkaline Phosphatase 107 U/L (46-116) 108 U/L (46-116) Total Protein 6.1 G/DL (6.4-8.2) 5.8 G/DL (6.4-8.2) Albumin 2.5 G/DL (3.4-5.0) 2.6 G/DL (3.4-5.0) Arterial Blood pH 7.249 (7.350-7.450) 7.374 (7.350-7.450) Arterial Blood Partial Pressure CO2 48.0 mmHg (35.0-45.0) 34.7 mmHg (35.0-45.0) Arterial Blood Partial Pressure O2 77.5 mmHg (75.0-100.0) 95.3 mmHg (75.0-100.0) Arterial Blood HCO3 20.5 mmol/L (22.0-26.0) 19.8 mmol/L (22.0-26.0) Arterial Blood Oxygen Saturation 92.6 % (95-100) 96.6 % (95-100) Arterial Blood Base Excess -6.5 (-2-2) -4.9 (-2-2) Benny Test Positive Positive Globulin 3.2 g/dL Albumin/Globulin Ratio 0.8 (1.0-2.7) Test 02/26/19 14:42 02/27/19 04:30 Stool Occult Blood Positive (NEGATIVE) White Blood Count 7.2 K/UL (4.8-10.8) Red Blood Count 3.06 M/UL (4.70-6.10) Hemoglobin 8.7 G/DL (14.2-18.0) Hematocrit 27.0 % (42.0-52.0) Mean Corpuscular Volume 88 FL (80-99) Mean Corpuscular Hemoglobin 28.6 PG (27.0-31.0) Mean Corpuscular Hemoglobin Concent 32.4 G/DL (32.0-36.0) Red Cell Distribution Width 17.0 % (11.6-14.8) Platelet Count 177 K/UL (150-450) Mean Platelet Volume 6.8 FL (6.5-10.1) Neutrophils (%) (Auto) 76.8 % (45.0-75.0) Lymphocytes (%) (Auto) 10.7 % (20.0-45.0) Monocytes (%) (Auto) 11.0 % (1.0-10.0) Eosinophils (%) (Auto) 1.2 % (0.0-3.0) Basophils (%) (Auto) 0.4 % (0.0-2.0) Sodium Level 134 MMOL/L (136-145) Potassium Level 5.1 MMOL/L (3.5-5.1) Chloride Level 100 MMOL/L (98-107) Carbon Dioxide Level 21 MMOL/L (21-32) Anion Gap 13 mmol/L (5-15) Blood Urea Nitrogen 73 mg/dL (7-18) Creatinine 3.3 MG/DL (0.55-1.30) Estimat Glomerular Filtration Rate 19.3 mL/min (>60) Glucose Level 151 MG/DL (74-106) Calcium Level 8.2 MG/DL (8.5-10.1) Total Bilirubin 0.3 MG/DL (0.2-1.0) Aspartate Amino Transf (AST/SGOT) 63 U/L (15-37) Alanine Aminotransferase (ALT/SGPT) 54 U/L (12-78) Alkaline Phosphatase 113 U/L (46-116) Total Protein 5.8 G/DL (6.4-8.2) Albumin 2.4 G/DL (3.4-5.0) Globulin 3.4 g/dL Albumin/Globulin Ratio 0.7 (1.0-2.7) Height (Feet): 6 Height (Inches): 0.00 Weight (Pounds): 269 Objective PHYSICAL EXAMINATION: GENERAL: NAD VITAL SIGNS: Have been reviewed. HEAD AND NECK: Shows no JVD. NG+ vent/TRACH+ LUNGS: Coarse rhonchi. CARDIOVASCULAR: Shows regular S1 and S2 with no gallop or murmur. ABDOMEN: Soft. EXTREMITIES: No pitting edema. Chan Hernandez MD Feb 27, 2019 13:03
--- NOTE | 2019-02-27 13:14 | Nephrology Progress Note ---
Assessment/Plan Problem List: (1) ISH (acute kidney injury) Assessment: Cr lowering (2) HIV (human immunodeficiency virus infection) (3) NSTEMI (non-ST elevated myocardial infarction) Assessment: troponin decreasing (4) Hypoxia (5) Anemia (6) Diabetes Assessment Acute Renal failure- Cr leveling- Urine out put is good Acidosis improved Acute respiratory failure- Require intubation and Mechanical Ventilation- Anemia- Elevated troponin / CT HTN DM HIV Antibody + Plan adjust BP meds on feeding 3% saline once IV protonix NGt suction transfusiosn as needed may need HD BP med adjustment ? recheck 2D echo?? UA and urine studies Avoid Nephrotoxics as possible Monitor renal parameters keep BP and BS in check Per orders No HD at this time Kidney RADHA noted adjust BP meds add Isordil Subjective ROS Limited/Unobtainable: Yes Objective Objective Last 24 Hour Vital Signs Date Time Temp Pulse Resp B/P (MAP) Pulse Ox O2 Delivery O2 Flow Rate FiO2 02/27/19 13:06 Mechanical Ventilator 40 02/27/19 13:06 Mechanical Ventilator 40 02/27/19 12:09 140/74 02/27/19 12:00 98.6 67 28 140/74 (96) 99 02/27/19 12:00 40 02/27/19 12:00 68 02/27/19 12:00 Mechanical Ventilator 02/27/19 11:00 71 29 40 02/27/19 11:00 69 28 125/77 (93) 98 02/27/19 11:00 24 Mechanical Ventilator 40 02/27/19 10:00 73 28 116/60 (78) 98 02/27/19 09:57 24 Mechanical Ventilator 40 02/27/19 09:05 77 30 40 02/27/19 09:00 77 28 151/76 (101) 97 02/27/19 09:00 24 Mechanical Ventilator 40 02/27/19 08:37 138/69 02/27/19 08:37 75 138/69 02/27/19 08:36 75 138/69 02/27/19 08:00 24 Mechanical Ventilator 40 02/27/19 08:00 77 02/27/19 08:00 40 02/27/19 08:00 98.5 75 28 141/64 (89) 97 02/27/19 07:54 Mechanical Ventilator 02/27/19 07:30 77 17 154/79 (104) 97 02/27/19 07:00 75 28 99 Mechanical Ventilator 40 02/27/19 07:00 24 Mechanical Ventilator 40 02/27/19 07:00 79 24 129/79 (96) 99 02/27/19 06:58 76 30 40 40 02/27/19 06:49 76 29 97 Mechanical Ventilator 40 02/27/19 06:30 73 24 150/64 (92) 98 02/27/19 06:00 24 Mechanical Ventilator 40 02/27/19 06:00 74 12 153/63 (93) 99 02/27/19 05:33 137/62 02/27/19 05:32 137/62 02/27/19 05:30 74 12 126/73 (90) 99 02/27/19 05:20 74 26 40 40 02/27/19 05:00 73 16 137/62 (87) 98 02/27/19 05:00 24 Mechanical Ventilator 40 02/27/19 04:30 73 13 136/71 (92) 99 02/27/19 04:00 71 02/27/19 04:00 24 Mechanical Ventilator 40 02/27/19 04:00 40 02/27/19 04:00 98.3 72 20 123/80 (94) 98 02/27/19 04:00 Mechanical Ventilator 02/27/19 03:30 72 24 133/87 (102) 100 02/27/19 03:29 73 31 40 40 02/27/19 03:00 61 24 121/61 (81) 99 02/27/19 03:00 24 Mechanical Ventilator 40 02/27/19 02:30 72 24 156/86 (109) 100 02/27/19 02:00 24 Mechanical Ventilator 40 02/27/19 02:00 71 13 136/63 (87) 100 02/27/19 01:48 74 24 100 Mechanical Ventilator 40 02/27/19 01:30 70 19 124/72 (89) 100 02/27/19 01:29 69 28 100 Mechanical Ventilator 40 02/27/19 01:29 70 29 40 40 02/27/19 01:00 24 Mechanical Ventilator 40 02/27/19 01:00 71 12 129/75 (93) 96 02/27/19 00:30 71 19 126/72 (90) 99 02/27/19 00:06 131/65 02/27/19 00:00 Mechanical Ventilator 02/27/19 00:00 24 Mechanical Ventilator 40 02/27/19 00:00 98.9 67 22 131/65 (87) 100 02/27/19 00:00 40 02/27/19 00:00 65 02/26/19 23:30 67 23 126/92 (103) 98 02/26/19 23:00 62 20 122/63 (82) 100 02/26/19 23:00 24 Mechanical Ventilator 40 02/26/19 22:46 62 26 40 40 02/26/19 22:30 62 21 122/64 (83) 99 02/26/19 22:00 24 Mechanical Ventilator 40 02/26/19 22:00 61 24 119/61 (80) 99 02/26/19 21:30 63 19 120/61 (80) 99 02/26/19 21:08 63 24 40 40 02/26/19 21:05 24 Mechanical Ventilator 40 02/26/19 21:04 24 Mechanical Ventilator 40 02/26/19 21:04 130/60 02/26/19 21:00 63 22 130/60 (83) 99 02/26/19 21:00 24 Mechanical Ventilator 40 02/26/19 20:30 70 140/75 02/26/19 20:30 63 20 140/75 (96) 99 02/26/19 20:29 140/75 02/26/19 20:00 40 02/26/19 20:00 99.3 65 21 120/60 (80) 100 02/26/19 20:00 24 Mechanical Ventilator 40 02/26/19 20:00 63 02/26/19 20:00 Mechanical Ventilator 02/26/19 19:30 67 21 121/65 (83) 100 02/26/19 19:10 70 24 100 Mechanical Ventilator 40 02/26/19 19:00 70 24 137/63 (87) 100 02/26/19 19:00 24 Mechanical Ventilator 40 02/26/19 19:00 71 24 100 Mechanical Ventilator 40 02/26/19 19:00 71 24 40 40 02/26/19 18:00 24 Mechanical Ventilator 40 02/26/19 18:00 72 24 131/66 (87) 100 02/26/19 17:41 24 Mechanical Ventilator 40 02/26/19 17:41 132/60 02/26/19 17:17 68 24 40 02/26/19 17:00 68 24 119/59 (79) 98 02/26/19 17:00 24 Mechanical Ventilator 40 02/26/19 16:00 98.6 73 24 113/85 (94) 98 02/26/19 16:00 Mechanical Ventilator Mechanical Ventilator 02/26/19 16:00 24 Mechanical Ventilator 40 02/26/19 16:00 71 02/26/19 16:00 40 02/26/19 15:30 71 24 124/58 (80) 97 02/26/19 15:27 70 26 40 02/26/19 15:00 71 24 126/55 (78) 97 02/26/19 15:00 24 Mechanical Ventilator 40 02/26/19 14:30 70 24 127/55 (79) 97 02/26/19 14:00 66 24 115/51 (72) 97 02/26/19 14:00 24 Mechanical Ventilator 40 02/26/19 13:40 115/51 02/26/19 13:38 24 40 02/26/19 13:30 66 24 115/51 (72) 97 Intake and Output 02/26/19 02/27/19 19:00 07:00 Intake Total 2065.0500 ml 1473 ml Output Total 1360 ml 1145 ml Balance 705.0500 ml 328 ml Free Water 50 ml IV Total 1855.0500 ml 968 ml Tube Feeding 80 ml 455 ml Other 130 ml Output Urine Total 1160 ml 1145 ml Stool Total 200 ml Laboratory Tests 02/26/19 14:42: Stool Occult Blood Positive 02/27/19 04:30: White Blood Count 7.2, Red Blood Count 3.06L, Hemoglobin 8.7L, Hematocrit 27.0L , Mean Corpuscular Volume 88, Mean Corpuscular Hemoglobin 28.6, Mean Corpuscular Hemoglobin Concent 32.4, Red Cell Distribution Width 17.0H, Platelet Count 177, Mean Platelet Volume 6.8, Neutrophils (%) (Auto) 76.8H, Lymphocytes (%) (Auto) 10.7L, Monocytes (%) (Auto) 11.0H, Eosinophils (%) (Auto ) 1.2, Basophils (%) (Auto) 0.4, Sodium Level 134L, Potassium Level 5.1, Chloride Level 100, Carbon Dioxide Level 21, Anion Gap 13, Blood Urea Nitrogen 73H, Creatinine 3.3H, Estimat Glomerular Filtration Rate 19.3, Glucose Level 151H, Calcium Level 8.2L, Total Bilirubin 0.3, Aspartate Amino Transf (AST/SGOT ) 63H, Alanine Aminotransferase (ALT/SGPT) 54, Alkaline Phosphatase 113, Total Protein 5.8L, Albumin 2.4L, Globulin 3.4, Albumin/Globulin Ratio 0.7L Height (Feet): 6 Height (Inches): 0.00 Weight (Pounds): 269 General Appearance: no apparent distress Cardiovascular: normal rate Respiratory/Chest: decreased breath sounds Abdomen: distended Objective no change Mike Mcdonald MD Feb 27, 2019 13:14
--- NOTE | 2019-02-27 14:00 | NUR ---
NURSE NOTES: Blood pressure 140/61, HR 69, and 98% SpO2. Patient has -2 RASS with no sign of acute distress at this time. Will continue to monitor sedation level . Patient bed in low position with bed alarm on and call light in reach. Patient ultrasound of the abdomen and chest completed. Awaiting result.
--- NOTE | 2019-02-27 14:04 | Diagnostic Imaging Report ---
Indication: Abdominal distention Technique: Grayscale images of the peritoneal space in all 4 quadrants Comparison: none Findings: No ascites fluid is demonstrated Impression: Negative for ascites
--- NOTE | 2019-02-27 15:07 | Diagnostic Imaging Report ---
Indication: Shortness of breath, abnormal chest radiograph, anticipated thoracentesis Technique: Grayscale images of the bilateral hemithoraces Comparison: none Findings: There are small bilateral pleural effusions. Impression: Small bilateral pleural effusions. Insufficient to justify therapeutic thoracentesis, so none performed. Findings were discussed by phone with Dr. Masoud duong
--- NOTE | 2019-02-27 15:19 | NUR ---
RADIOLOGY DEPT., ABDOMEN AND CHEST X-RAY COMPLETED.-P.DYE
[2019-02-27] MEDS ORDERED: Tubing IV Secondary IV ONE (15:25)
--- NOTE | 2019-02-27 16:00 | NUR ---
NURSE NOTES: Patient eyes closed at this time. Upon inspection, patient's lower sclera remains swollen and red but resolving. Patient is sedated at this time with fentanyl running at 300mcg/hr (30mL/hr). Patient showing no sign of acute distress at this time. Patient has RASS score of -2. Will continue to monitor and titrate fentanyl drip per protocol. Ventilator setting of AC 24, TV 550, FiO2 40%, and PEEP 5. Bilateral upper lung lobes inspiratory and expiratory rhonchi, lower lobes diminished and difficult to hear due to patient's abdominal distention. . Patient tolerating setting with oxygen saturation 98% at this time. Patient blood pressure 138/58, HR 72, RR 28. Patient NGT patent and verified with auscultation at this time. Patient feeding Nepro running at 43mL/hr with 10mL residual. Will increase to 43mL/hr at this time. Pitting edema on +3 to +4 on the lower extremities and pitting +2 to +3 on the upper extremities. Abdomen distention is non-pitting but tight. Ultrasound of chest and abdomen resulted and reported to Dr Meredith, no new orders received. Petechiae still noted on the under arms. Scrotum swollen and non-pitting. Simon in place for urine retention and to monitor kidney function. Urine dark scott/pink with some sediment. Left femoral paulo catheter with pigtail that is saline locked at this time. PICC line inserted and verified with x-ray and is now running fentanyl at 300mcg/hr. Dr Costa has been notified that the PICC line is in and paulo can be removed. Will await confirmation of placement. Left hand 22G PIV that is patent with good blood return, leaking slightly due to edema on the hand, and is saline locked at this time. Oral care and repositioning performed at this time.
--- NOTE | 2019-02-27 16:01 | Surgery Progress Note ---
Surgery Progress Note Subjective Procedure Performed left femoral temporary Hemodialysis catheter insertion Additional Comments no acute events intubated on vent support labs noted. Cr elevated responds to pain stimulus PICC today plan to remove femoral line Objective Last 24 Hour Vital Signs Date Time Temp Pulse Resp B/P (MAP) Pulse Ox O2 Delivery O2 Flow Rate FiO2 02/27/19 15:00 71 26 143/58 (86) 98 02/27/19 15:00 26 Mechanical Ventilator 40 02/27/19 14:59 71 27 40 02/27/19 14:00 69 24 140/61 (87) 98 02/27/19 14:00 24 Mechanical Ventilator 40 02/27/19 13:46 141/57 02/27/19 13:17 69 27 40 02/27/19 13:06 Mechanical Ventilator 40 02/27/19 13:06 Mechanical Ventilator 40 02/27/19 13:00 24 Mechanical Ventilator 40 02/27/19 13:00 68 25 141/57 (85) 98 02/27/19 12:09 140/74 02/27/19 12:00 98.6 67 28 140/74 (96) 99 02/27/19 12:00 40 02/27/19 12:00 25 Mechanical Ventilator 40 02/27/19 12:00 68 02/27/19 12:00 Mechanical Ventilator 02/27/19 11:00 71 29 40 02/27/19 11:00 69 28 125/77 (93) 98 02/27/19 11:00 24 Mechanical Ventilator 40 02/27/19 10:00 73 28 116/60 (78) 98 02/27/19 09:57 24 Mechanical Ventilator 40 02/27/19 09:05 77 30 40 02/27/19 09:00 77 28 151/76 (101) 97 02/27/19 09:00 24 Mechanical Ventilator 40 02/27/19 08:37 138/69 02/27/19 08:37 75 138/69 02/27/19 08:36 75 138/69 02/27/19 08:00 24 Mechanical Ventilator 40 02/27/19 08:00 77 02/27/19 08:00 40 02/27/19 08:00 98.5 75 28 141/64 (89) 97 02/27/19 07:54 Mechanical Ventilator 02/27/19 07:30 77 17 154/79 (104) 97 02/27/19 07:00 75 28 99 Mechanical Ventilator 40 02/27/19 07:00 24 Mechanical Ventilator 40 02/27/19 07:00 79 24 129/79 (96) 99 02/27/19 06:58 76 30 40 40 02/27/19 06:49 76 29 97 Mechanical Ventilator 40 02/27/19 06:30 73 24 150/64 (92) 98 02/27/19 06:00 24 Mechanical Ventilator 40 02/27/19 06:00 74 12 153/63 (93) 99 02/27/19 05:33 137/62 02/27/19 05:32 137/62 02/27/19 05:30 74 12 126/73 (90) 99 02/27/19 05:20 74 26 40 40 02/27/19 05:00 73 16 137/62 (87) 98 02/27/19 05:00 24 Mechanical Ventilator 40 02/27/19 04:30 73 13 136/71 (92) 99 02/27/19 04:00 71 02/27/19 04:00 24 Mechanical Ventilator 40 02/27/19 04:00 40 02/27/19 04:00 98.3 72 20 123/80 (94) 98 02/27/19 04:00 Mechanical Ventilator 02/27/19 03:30 72 24 133/87 (102) 100 02/27/19 03:29 73 31 40 40 02/27/19 03:00 61 24 121/61 (81) 99 02/27/19 03:00 24 Mechanical Ventilator 40 02/27/19 02:30 72 24 156/86 (109) 100 02/27/19 02:00 24 Mechanical Ventilator 40 02/27/19 02:00 71 13 136/63 (87) 100 02/27/19 01:48 74 24 100 Mechanical Ventilator 40 02/27/19 01:30 70 19 124/72 (89) 100 02/27/19 01:29 69 28 100 Mechanical Ventilator 40 02/27/19 01:29 70 29 40 40 02/27/19 01:00 24 Mechanical Ventilator 40 02/27/19 01:00 71 12 129/75 (93) 96 02/27/19 00:30 71 19 126/72 (90) 99 02/27/19 00:06 131/65 02/27/19 00:00 Mechanical Ventilator 02/27/19 00:00 24 Mechanical Ventilator 40 02/27/19 00:00 98.9 67 22 131/65 (87) 100 02/27/19 00:00 40 02/27/19 00:00 65 02/26/19 23:30 67 23 126/92 (103) 98 02/26/19 23:00 62 20 122/63 (82) 100 02/26/19 23:00 24 Mechanical Ventilator 40 02/26/19 22:46 62 26 40 40 02/26/19 22:30 62 21 122/64 (83) 99 02/26/19 22:00 24 Mechanical Ventilator 40 02/26/19 22:00 61 24 119/61 (80) 99 02/26/19 21:30 63 19 120/61 (80) 99 02/26/19 21:08 63 24 40 40 02/26/19 21:05 24 Mechanical Ventilator 40 02/26/19 21:04 24 Mechanical Ventilator 40 02/26/19 21:04 130/60 02/26/19 21:00 63 22 130/60 (83) 99 02/26/19 21:00 24 Mechanical Ventilator 40 02/26/19 20:30 70 140/75 02/26/19 20:30 63 20 140/75 (96) 99 02/26/19 20:29 140/75 02/26/19 20:00 40 02/26/19 20:00 99.3 65 21 120/60 (80) 100 02/26/19 20:00 24 Mechanical Ventilator 40 02/26/19 20:00 63 02/26/19 20:00 Mechanical Ventilator 02/26/19 19:30 67 21 121/65 (83) 100 02/26/19 19:10 70 24 100 Mechanical Ventilator 40 02/26/19 19:00 70 24 137/63 (87) 100 02/26/19 19:00 24 Mechanical Ventilator 40 02/26/19 19:00 71 24 100 Mechanical Ventilator 40 02/26/19 19:00 71 24 40 40 02/26/19 18:00 24 Mechanical Ventilator 40 02/26/19 18:00 72 24 131/66 (87) 100 02/26/19 17:41 24 Mechanical Ventilator 40 02/26/19 17:41 132/60 02/26/19 17:17 68 24 40 7/8/19 17:00 68 24 119/59 (79) 98 02/26/19 17:00 24 Mechanical Ventilator 40 I&O Intake and Output 02/26/19 02/27/19 19:00 07:00 Intake Total 2065.0500 ml 1473 ml Output Total 1360 ml 1145 ml Balance 705.0500 ml 328 ml Free Water 50 ml IV Total 1855.0500 ml 968 ml Tube Feeding 80 ml 455 ml Other 130 ml Output Urine Total 1160 ml 1145 ml Stool Total 200 ml Dressing: saturated Wound: clean Cardiovascular: RSR Respiratory: clear, decreased breath sounds Abdomen: soft, non-distended, decreased bowel sounds Extremities: edema, no tenderness, no cyanosis Laboratory Tests Test 02/27/19 04:30 White Blood Count 7.2 K/UL (4.8-10.8) Red Blood Count 3.06 M/UL (4.70-6.10) L Hemoglobin 8.7 G/DL (14.2-18.0) L Hematocrit 27.0 % (42.0-52.0) L Mean Corpuscular Volume 88 FL (80-99) Mean Corpuscular Hemoglobin 28.6 PG (27.0-31.0) Mean Corpuscular Hemoglobin Concent 32.4 G/DL (32.0-36.0) Red Cell Distribution Width 17.0 % (11.6-14.8) H Platelet Count 177 K/UL (150-450) Mean Platelet Volume 6.8 FL (6.5-10.1) Neutrophils (%) (Auto) 76.8 % (45.0-75.0) H Lymphocytes (%) (Auto) 10.7 % (20.0-45.0) L Monocytes (%) (Auto) 11.0 % (1.0-10.0) H Eosinophils (%) (Auto) 1.2 % (0.0-3.0) Basophils (%) (Auto) 0.4 % (0.0-2.0) Sodium Level 134 MMOL/L (136-145) L Potassium Level 5.1 MMOL/L (3.5-5.1) Chloride Level 100 MMOL/L (98-107) Carbon Dioxide Level 21 MMOL/L (21-32) Anion Gap 13 mmol/L (5-15) Blood Urea Nitrogen 73 mg/dL (7-18) H Creatinine 3.3 MG/DL (0.55-1.30) H Estimat Glomerular Filtration Rate 19.3 mL/min (>60) Glucose Level 151 MG/DL (74-106) H Calcium Level 8.2 MG/DL (8.5-10.1) L Total Bilirubin 0.3 MG/DL (0.2-1.0) Aspartate Amino Transf (AST/SGOT) 63 U/L (15-37) H Alanine Aminotransferase (ALT/SGPT) 54 U/L (12-78) Alkaline Phosphatase 113 U/L (46-116) Total Protein 5.8 G/DL (6.4-8.2) L Albumin 2.4 G/DL (3.4-5.0) L Globulin 3.4 g/dL Albumin/Globulin Ratio 0.7 (1.0-2.7) L Plan Problems: (1) Hypoxia Assessment & Plan: Extensive bilateral upper lobe infiltrates likely inflammatory/infectious. Correlate clinically. Tuberculosis is not excludable. Bilateral pleural effusions. Endotracheal tube and nasogastric tube in good position Atherosclerotic vascular disease (2) Respiratory distress Assessment & Plan: intubated on vent support may require trach given failed initial extubation and now difficult to wean (3) Sepsis Assessment & Plan: Sepsis with tachycardia, leukocytosis - resolved, abnormal labs, respiratory distress on vent support via ET tube Cont IV abx CXR noted appreciate ICU team care abnormal lft's US noted will likely remove line soon now that improving will cont to follow with recs trend labs Rx as written plan to place PICC plan to remove temp HD line after may need trach Moiz Costa Feb 27, 2019 16:01
[2019-02-27] MEDS: Cefepime HCl 1 GM in D5W 55 ML IVPB SCH (16:39)
--- NOTE | 2019-02-27 17:00 | NUR ---
NURSE NOTES: Patient RASS score -4 at this time. Fentanyl drip reduced to 200mcg/hr. Will continue to monitor and titrate fentanyl per protocol.
--- NOTE | 2019-02-27 18:09 | NUR ---
NURSE NOTES: Patient RASS score -2 (light sedation) at this time. Patient easily arousable but is not restless. Fentanyl drip running at 200mcg/hr. Will continue to monitor and titrate fentanyl per protocol.
--- NOTE | 2019-02-27 19:15 | NUR ---
HAND-OFF: Report given to TESSA Najera. Patient vital signs stable at this time. Patient sedation level -2 RASS. Patient running fentanyl at 200mcg/hr. Patient fentanyl almost out. New bag just picked up from pharmacy. Fentanyl handed over to TESSA Najera to hang when previous bag empty. Endorsed to follow up.
[2019-02-27] MEDS: Dyna-Hex 2% Top Sol 2oz TOPIC SCH (19:20)
--- NOTE | 2019-02-27 19:21 | NUR ---
NURSE NOTES: New Fentanyl bag hung. Patient remains sedated. IV lines remains patent and intact.
--- NOTE | 2019-02-27 19:30 | NUR ---
NURSE NOTES: Patient received report from Suze Tang RN. Patient is currently sedated with fentanyl gtt. Orally intubated; 7.5/24cm Ac 24, 550, 40% FiO2, peep 5, Spo2 100% RR 24. Nepro via NGT at 43ml/hr. Rectal tube, liquid diarrhea. Simon catheter, hanging below bladder. KATIE PICC newly inserted today. L Femoral João Catheter. L hand 20G peripheral. P200 mattress. SCDs are on. No acute distress at this time. Will continue to monitor.
--- NOTE | 2019-02-27 20:00 | NUR ---
NURSE NOTES: Repositioned patient Oral care and suctioned given PICC dressing remains dry and intact sedation ongoing CHG bath given.
[2019-02-27] MEDS: Miralax 17gm pkt ORAL SCH (20:59)
[2019-02-27] MEDS: Clindamycin 900mg 50 ML IV SCH (21:01)
[2019-02-27] MEDS: Maxitrol Opth Oint 3.5gm BOTH EYES SCH (21:01)
--- NOTE | 2019-02-27 22:00 | NUR ---
NURSE NOTES: Repositioned patient Oral care was give deep suction provided remains sedated on fentanyl gtt No acute respiratory distress at this time.
--- NOTE | 2019-02-27 22:43 | General Progress Note ---
Assessment/Plan Status: stable Assessment/Plan: 58 y Male admitted to the hospital due to fever, shortness of breath and chest pain. # Multilobar pneumonia in patient with HIV - Broad sp atbx started. Continue Zosyn, Vancomycin, Azithromycin, TM-SMX - Fluconazole per ID - Droplet precaution - Flu swab ordered. - Oxygen support, ventilatory support as not able to wean off ventilator due to agitation. Consider change of sedation agent from Fentanyl to Versed if indicated. - ID consult appreciated. Discussed today and monitor renal function as possibly change in creatinine due to TM-SMX -Pt in need of PICC line, mother unable to give consent 2/2 dementia, will do 2 physician consent # Hypoxemic respiratory failure - Critical care follow up. Unable to wean off the ventilatior. - Possible need for tracheostomy in the future. - Due to pneumonia poss pjp # Chest pain - EKG with bifascicular block RBB and LAFB, no ST changes. - Trend troponin x3 completed - ECHO completed with no WMA and preserved EF. Dr. Francois consulted. Consideration for outpatient cath vs possibly myocarditis due to underlying viral infection. No evidence of Takotsubo per TTE. - NGT prn - Pain control with morphine # HIV - Continue HARRT - VL is undetectable per patient report. T cell count > 400 - CD 4 count 191 # HTN - Resume home medication - Clonidine, Isordil added today. 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 Gasca for STATISTICAL GENETICIST - plan to remove femoral access after PICC placement - Lasix 40 IV x 1 today -monitor renal fct and fluid status DVT and GI ppx Full code A total of 35 mins of critical care time was spent on this patient, dealing with hypoxemic resp failure requiring continuous mechanical ventilation, reviewing telemetry data, discussion with bedside PRINTING SERVICES COORDINATOR Subjective Date patient seen: Feb 27, 2019 Allergies: Coded Allergies: No Known Allergies (Unverified , 02/05/13) Subjective Pt remains intubated and sedated, plan for PICC line placement today, will remove femoral cvc after, lasix 40x 1 today. Objective Last 24 Hour Vital Signs Date Time Temp Pulse Resp B/P (MAP) Pulse Ox O2 Delivery O2 Flow Rate FiO2 02/27/19 22:00 24 Mechanical Ventilator 40 02/27/19 22:00 82 24 157/64 (95) 94 02/27/19 21:30 78 24 154/60 (91) 98 02/27/19 21:17 81 24 40 40 02/27/19 21:00 81 24 152/62 (92) 98 02/27/19 21:00 24 Mechanical Ventilator 40 02/27/19 20:59 82 142/57 02/27/19 20:58 142/57 02/27/19 20:58 142/57 02/27/19 20:30 74 24 142/57 (85) 99 02/27/19 20:00 Mechanical Ventilator 02/27/19 20:00 99.1 77 24 153/56 (88) 99 02/27/19 20:00 82 02/27/19 20:00 24 Mechanical Ventilator 40 02/27/19 20:00 40 02/27/19 19:40 76 24 100 Mechanical Ventilator 40 02/27/19 19:30 79 24 155/60 (91) 97 02/27/19 19:28 78 22 40 40 02/27/19 19:28 78 22 97 Mechanical Ventilator 40 02/27/19 19:21 24 Mechanical Ventilator 40 02/27/19 19:00 76 24 151/54 (86) 98 02/27/19 19:00 25 Mechanical Ventilator 40 02/27/19 18:30 7 24 149/60 (89) 98 02/27/19 18:00 74 24 145/55 (85) 98 02/27/19 18:00 25 Mechanical Ventilator 40 02/27/19 17:45 73 24 145/59 (87) 98 02/27/19 17:40 145/59 02/27/19 17:30 74 25 145/59 (87) 98 02/27/19 17:15 75 24 145/59 (87) 98 02/27/19 17:00 75 25 138/61 (86) 98 02/27/19 17:00 24 Mechanical Ventilator 40 02/27/19 17:00 75 24 40 02/27/19 16:58 28 Mechanical Ventilator 40 02/27/19 16:00 70 02/27/19 16:00 Mechanical Ventilator 02/27/19 16:00 98.1 73 21 138/58 (84) 98 02/27/19 16:00 24 Mechanical Ventilator 40 02/27/19 16:00 40 7/9/19 15:00 71 26 143/58 (86) 98 02/27/19 15:00 26 Mechanical Ventilator 40 02/27/19 14:59 71 27 40 02/27/19 14:00 69 24 140/61 (87) 98 02/27/19 14:00 24 Mechanical Ventilator 40 02/27/19 13:46 141/57 02/27/19 13:17 69 27 40 02/27/19 13:06 Mechanical Ventilator 40 02/27/19 13:06 Mechanical Ventilator 40 02/27/19 13:00 24 Mechanical Ventilator 40 02/27/19 13:00 68 25 141/57 (85) 98 02/27/19 12:09 140/74 02/27/19 12:00 98.6 67 28 140/74 (96) 99 02/27/19 12:00 40 02/27/19 12:00 25 Mechanical Ventilator 40 02/27/19 12:00 68 02/27/19 12:00 Mechanical Ventilator 02/27/19 11:00 71 29 40 02/27/19 11:00 69 28 125/77 (93) 98 02/27/19 11:00 24 Mechanical Ventilator 40 02/27/19 10:00 73 28 116/60 (78) 98 02/27/19 09:57 24 Mechanical Ventilator 40 02/27/19 09:05 77 30 40 02/27/19 09:00 77 28 151/76 (101) 97 02/27/19 09:00 24 Mechanical Ventilator 40 02/27/19 08:37 138/69 02/27/19 08:37 75 138/69 02/27/19 08:36 75 138/69 02/27/19 08:00 24 Mechanical Ventilator 40 02/27/19 08:00 77 02/27/19 08:00 40 02/27/19 08:00 98.5 75 28 141/64 (89) 97 02/27/19 07:54 Mechanical Ventilator 02/27/19 07:30 77 17 154/79 (104) 97 02/27/19 07:00 75 28 99 Mechanical Ventilator 40 02/27/19 07:00 24 Mechanical Ventilator 40 02/27/19 07:00 79 24 129/79 (96) 99 02/27/19 06:58 76 30 40 40 02/27/19 06:49 76 29 97 Mechanical Ventilator 40 02/27/19 06:30 73 24 150/64 (92) 98 02/27/19 06:00 24 Mechanical Ventilator 40 02/27/19 06:00 74 12 153/63 (93) 99 02/27/19 05:33 137/62 02/27/19 05:32 137/62 02/27/19 05:30 74 12 126/73 (90) 99 02/27/19 05:20 74 26 40 40 02/27/19 05:00 73 16 137/62 (87) 98 02/27/19 05:00 24 Mechanical Ventilator 40 02/27/19 04:30 73 13 136/71 (92) 99 02/27/19 04:00 71 02/27/19 04:00 24 Mechanical Ventilator 40 02/27/19 04:00 40 02/27/19 04:00 98.3 72 20 123/80 (94) 98 02/27/19 04:00 Mechanical Ventilator 02/27/19 03:30 72 24 133/87 (102) 100 02/27/19 03:29 73 31 40 40 02/27/19 03:00 61 24 121/61 (81) 99 02/27/19 03:00 24 Mechanical Ventilator 40 02/27/19 02:30 72 24 156/86 (109) 100 02/27/19 02:00 24 Mechanical Ventilator 40 02/27/19 02:00 71 13 136/63 (87) 100 02/27/19 01:48 74 24 100 Mechanical Ventilator 40 02/27/19 01:30 70 19 124/72 (89) 100 02/27/19 01:29 69 28 100 Mechanical Ventilator 40 02/27/19 01:29 70 29 40 40 02/27/19 01:00 24 Mechanical Ventilator 40 02/27/19 01:00 71 12 129/75 (93) 96 02/27/19 00:30 71 19 126/72 (90) 99 02/27/19 00:06 131/65 02/27/19 00:00 Mechanical Ventilator 02/27/19 00:00 24 Mechanical Ventilator 40 02/27/19 00:00 98.9 67 22 131/65 (87) 100 02/27/19 00:00 40 02/27/19 00:00 65 02/26/19 23:30 67 23 126/92 (103) 98 02/26/19 23:00 62 20 122/63 (82) 100 02/26/19 23:00 24 Mechanical Ventilator 40 02/26/19 22:46 62 26 40 40 Intake and Output 02/26/19 02/27/19 18:59 06:59 Intake Total 1970.0500 ml 1553 ml Output Total 1260 ml 1345 ml Balance 710.0500 ml 208 ml Free Water 50 ml IV Total 1780.0500 ml 1043 ml Tube Feeding 90 ml 430 ml Other 100 ml 30 ml Output Urine Total 1260 ml 1145 ml Stool Total 200 ml Laboratory Tests 02/27/19 04:30: White Blood Count 7.2, Red Blood Count 3.06L, Hemoglobin 8.7L, Hematocrit 27.0L , Mean Corpuscular Volume 88, Mean Corpuscular Hemoglobin 28.6, Mean Corpuscular Hemoglobin Concent 32.4, Red Cell Distribution Width 17.0H, Platelet Count 177, Mean Platelet Volume 6.8, Neutrophils (%) (Auto) 76.8H, Lymphocytes (%) (Auto) 10.7L, Monocytes (%) (Auto) 11.0H, Eosinophils (%) (Auto ) 1.2, Basophils (%) (Auto) 0.4, Sodium Level 134L, Potassium Level 5.1, Chloride Level 100, Carbon Dioxide Level 21, Anion Gap 13, Blood Urea Nitrogen 73H, Creatinine 3.3H, Estimat Glomerular Filtration Rate 19.3, Glucose Level 151H, Calcium Level 8.2L, Total Bilirubin 0.3, Aspartate Amino Transf (AST/SGOT ) 63H, Alanine Aminotransferase (ALT/SGPT) 54, Alkaline Phosphatase 113, Total Protein 5.8L, Albumin 2.4L, Globulin 3.4, Albumin/Globulin Ratio 0.7L Height (Feet): 6 Height (Inches): 0.00 Weight (Pounds): 269 Objective General Appearance: intubated, no agitation EENT: intubated Neck: non-tender, normal alignment Cardiovascular: normal peripheral pulses, normal rate Respiratory/Chest: chest wall non-tender, lungs clear Abdomen: normal bowel sounds, non tender Extremities: normal range of motion, non-tender Edema: trace edema Neurologic: instructional technology specialist II-XII grossly normal Sonja Douglas MD Feb 27, 2019 22:43
[2019-02-28] VITALS (54 sets, daily range): BP systolic 126–164; BP diastolic 43–121
--- NOTE | 2019-02-28 | NUR ---
NURSE NOTES: Patient repositioned and given oral care. Glucose 166, coverage given Vitals remains stable Sedation ongoing making good urine output Will continue to monitor.
[2019-02-28] MEDS: Metoclopramide 10mg/2ml Inj IVP SCH ×3 (00:54→16:34)
[2019-02-28] MEDS: NovoLOG Insulin Flexpen SUBQ SCH ×5 (00:55→23:48)
[2019-02-28] MEDS: Albuterol/Ipratropium 3ml neb HHN SCH ×4 (01:23→19:26)
--- NOTE | 2019-02-28 02:00 | NUR ---
NURSE NOTES: Repositioned Given oral care João cath dressing changed Blood drawn and sent to lab SpO2 100%
--- NOTE | 2019-02-28 04:00 | NUR ---
NURSE NOTES: Repositioned Oral care done suctioned No acute change at this time Will continue to monitor.
[2019-02-28] MEDS: Lacri-Lube Opth Oint 3.5gm BOTH EYES SCH ×4 (05:32→21:02)
[2019-02-28] MEDS: Clindamycin 900mg 50 ML IV SCH ×3 (05:32→21:51)
[2019-02-28] MEDS: HydrALAZINE 50mg tab NG SCH ×3 (05:32→21:51)
[2019-02-28] MEDS: LORazepam Inj 2mg/ml 1ml IV PRN (05:34)
--- NOTE | 2019-02-28 06:00 | NUR ---
NURSE NOTES: repositioned AM meds given glucose 183, coverage provided No acute changes overnight
[2019-02-28 06:34] LABS: BASOPHILS % (AUTO) 0.3 % (0.0-2.0); EOSINOPHILS % (AUTO) 0.8 % (0.0-3.0); HEMATOCRIT 25.8 % (42.0-52.0); HEMOGLOBIN 8.4 G/DL (14.2-18.0); LYMPHOCYTES % (AUTO) 6.1 % (20.0-45.0); MEAN CORPUSCULAR VOLUME 89 FL (80-99); MONOCYTES % (AUTO) 8.2 % (1.0-10.0); NEUTROPHILS % (AUTO) 84.6 % (45.0-75.0); PLATELET COUNT 115 K/UL (150-450); RED BLOOD COUNT 2.91 M/UL (4.70-6.10); RED CELL DISTRIBUTION WIDTH 17.1 % (11.6-14.8)
[2019-02-28 07:02] LABS: ALANINE AMINOTRANSFERASE 51 U/L (12-78); ALBUMIN 2.5 G/DL (3.4-5.0); ALBUMIN/GLOBULIN RATIO 0.8 (1.0-2.7); ALKALINE PHOSPHATASE 130 U/L (46-116); ANION GAP 12 mmol/L (5-15); ASPARTATE AMINO TRANSFERASE 67 U/L (15-37); BILIRUBIN,TOTAL 0.4 MG/DL (0.2-1.0); BLOOD UREA NITROGEN 74 mg/dL (7-18); CALCIUM 8.3 MG/DL (8.5-10.1); CARBON DIOXIDE 21 MMOL/L (21-32); CHLORIDE 99 MMOL/L (98-107); CREATININE 3.2 MG/DL (0.55-1.30); POTASSIUM 4.1 MMOL/L (3.5-5.1); SODIUM 132 MMOL/L (136-145)
--- NOTE | 2019-02-28 07:05 | NUR ---
NURSE NOTES: Report received from TESSA Najera. Pt is lightly sedated. Pt is able to move arms trying to reach ETT. Pt is on bilateral soft wrist restraints. Sinus rhythm on cardiac technologist. ETT 7.5/24cm with AC 24, TV 550, FiO2 40%, P 5. O2 sat 99%. No respiratory distress noted. Left NGT in place receiving Nepro at 43cc/hr. Will recheck residual. Rectal tube and Simon in place draining to gravity. Generalized edema and swollen scrotum noted. Left femoral João with pigtail and right UA PICC line patent and asymptomatic. Pt is receiving Fentanyl drip at 140mcg/hr. Bed in lowest position. Side rails up x3. Will resume plan of care.
--- NOTE | 2019-02-28 07:08 | NUR ---
RESPIRATORY NOTE: received pt on vent, orally intubated with ETT 7.5 placed 24cm at the lip. ETT secured via anchor fast with no visible redness, but dry lips. pt on AC/VC+ with irregular breathing pattern. no distress noted. alarms are set and audible with ambu bag at bedside. will cont to monitor throughout the day.
--- NOTE | 2019-02-28 07:30 | NUR ---
NURSE NOTES: Titrating down Fentanyl drip for weaning. Feeding held for weaning.
[2019-02-28] MEDS: Docusate 100mg/10ml Liq GT SCH ×3 (08:46→18:04)
[2019-02-28] MEDS: Pantoprazole Inj IVP SCH (08:46)
[2019-02-28] MEDS: guaiFENesin ER 600mg tab ORAL SCH ×2 (08:46→18:04)
[2019-02-28] MEDS: Sennosides 8.6mg tab ORAL SCH (08:46)
[2019-02-28] MEDS: Primaquine 26.3mg(=15mg base) Tab ORAL SCH (08:47)
[2019-02-28] MEDS: RALTEGRAVIR 400 MG ORAL SCH ×2 (08:48→18:05)
[2019-02-28] MEDS: ETRAVIRINE 200 MG ORAL SCH (08:48)
[2019-02-28] MEDS: Heparin 5000 units/ml inj SUBQ SCH ×2 (08:48→21:05)
[2019-02-28] MEDS: TENOFOVIR DISOPROXIL FUMARATE 300 MG ORAL SCH (08:48)
--- NOTE | 2019-02-28 09:44 | Diagnostic Imaging Report ---
. Indications: Needs long-term IV access Technique: Procedure performed at bedside. Procedural timeout performed. Ultrasound confirms patent compressible right basilic vein. Total sterile technique, including sterile probe cover and sterile gel, sterile gloves, hand hygiene, hat, mask,, sterile gown, large sterile drape, and preparation with 2% chlorhexidine utilized. Local anesthesia with 1% lidocaine. Under real-time ultrasound guidance, puncture basilic vein using 21-gauge needle, passage 0.018 guidewire, exchange for 4 Bulgarian peel-away sheath. 4 Bulgarian Bard dual-lumen power PICC cut to 48 cm. It was inserted through the peel-away sheath. Peel-away sheath and guidewire removed. Catheter fixed to the skin. Both catheter ports aspirated and flushed. Patient tolerated procedure well, without immediate complication. Followup chest x-ray obtained, documents catheter tip position at the high right atrium Impression: Successful bedside placement of right arm PICC under sonographic guidance, as described above.
--- NOTE | 2019-02-28 10:20 | NUR ---
NURSE NOTES: Weaning started with CPAP, PS 8, FiO2 40%. RR 21, O2 sat 98%. Will continue to monitor.
--- NOTE | 2019-02-28 11:29 | General Progress Note ---
Assessment/Plan Status: stable Assessment/Plan: 1. History of HIV. 2. Hypertension. 3. Vertigo. 4. History of headaches. 5. History of diabetes. 6. Respiratory failure 7. Dysphagia 8. ileus stable H&H NGTF ppi fu H&H prn blood transfusion ppi low dose reglan Subjective ROS Limited/Unobtainable: No Allergies: Coded Allergies: No Known Allergies (Unverified , 02/05/13) Objective Last 24 Hour Vital Signs Date Time Temp Pulse Resp B/P (MAP) Pulse Ox O2 Delivery O2 Flow Rate FiO2 02/28/19 11:00 72 18 146/63 (90) 97 02/28/19 10:30 71 20 149/57 (87) 97 02/28/19 10:21 73 23 40 02/28/19 10:15 73 20 139/64 (89) 99 02/28/19 10:00 71 15 139/64 (89) 98 02/28/19 10:00 76 19 134/79 (97) 98 02/28/19 09:45 71 19 139/64 (89) 97 02/28/19 09:30 73 22 138/51 (80) 96 02/28/19 09:15 77 18 134/79 (97) 98 02/28/19 09:01 141/121 02/28/19 09:00 18 Mechanical Ventilator 40 02/28/19 09:00 76 19 134/79 (97) 98 02/28/19 08:47 77 141/121 02/28/19 08:47 77 141/121 02/28/19 08:45 77 16 141/121 (128) 98 02/28/19 08:39 75 32 40 02/28/19 08:30 76 20 141/121 (128) 97 02/28/19 08:30 18 Mechanical Ventilator 40 02/28/19 08:30 76 20 141/121 (128) 97 02/28/19 08:15 78 18 143/68 (93) 98 02/28/19 08:00 40 02/28/19 08:00 Mechanical Ventilator 02/28/19 08:00 18 Mechanical Ventilator 40 02/28/19 08:00 77 17 143/68 (93) 98 02/28/19 07:30 75 19 144/66 (92) 98 02/28/19 07:28 74 02/28/19 07:10 75 33 98 Mechanical Ventilator 40 02/28/19 07:04 76 31 40 02/28/19 07:03 77 29 98 Mechanical Ventilator 40 02/28/19 07:00 97.5 76 18 148/60 (89) 97 02/28/19 07:00 18 Mechanical Ventilator 40 02/28/19 06:00 24 Mechanical Ventilator 40 02/28/19 06:00 75 24 126/61 (82) 96 02/28/19 05:32 152/59 02/28/19 05:32 152/59 02/28/19 05:30 75 24 152/63 (92) 96 02/28/19 05:12 75 30 40 40 02/28/19 05:00 75 24 152/59 (90) 95 02/28/19 05:00 24 Mechanical Ventilator 40 02/28/19 04:30 76 24 144/68 (93) 94 02/28/19 04:00 73 02/28/19 04:00 40 02/28/19 04:00 24 Mechanical Ventilator 40 02/28/19 04:00 99.2 76 21 150/71 (97) 92 02/28/19 04:00 Mechanical Ventilator 02/28/19 03:30 77 24 148/61 (90) 93 02/28/19 03:28 78 24 143/69 (93) 100 02/28/19 03:00 78 24 151/88 (109) 94 02/28/19 03:00 24 Non-Rebreather 40 02/28/19 02:54 88 24 40 40 02/28/19 02:30 78 24 145/70 (95) 94 02/28/19 02:00 84 24 137/63 (87) 99 02/28/19 02:00 24 Mechanical Ventilator 40 02/28/19 01:32 72 24 100 Mechanical Ventilator 40 02/28/19 01:30 87 24 144/69 (94) 99 02/28/19 01:22 92 25 95 Mechanical Ventilator 40 02/28/19 01:21 92 25 40 40 02/28/19 01:00 24 Mechanical Ventilator 40 02/28/19 01:00 79 24 138/66 (90) 96 02/28/19 00:54 157/64 02/28/19 00:30 79 24 139/63 (88) 96 02/28/19 00:00 79 02/28/19 00:00 24 Mechanical Ventilator 40 02/28/19 00:00 Mechanical Ventilator 02/28/19 00:00 40 02/28/19 00:00 99.5 78 24 133/75 (94) 95 02/27/19 23:30 78 24 138/58 (84) 94 02/27/19 23:00 79 24 128/76 (93) 99 02/27/19 23:00 24 Mechanical Ventilator 40 02/27/19 22:48 79 24 40 40 02/27/19 22:30 80 24 147/60 (89) 95 02/27/19 22:00 24 Mechanical Ventilator 40 02/27/19 22:00 82 24 157/64 (95) 94 02/27/19 21:30 78 24 154/60 (91) 98 02/27/19 21:17 81 24 40 40 02/27/19 21:00 81 24 152/62 (92) 98 02/27/19 21:00 24 Mechanical Ventilator 40 02/27/19 20:59 82 142/57 02/27/19 20:58 142/57 02/27/19 20:58 142/57 02/27/19 20:30 74 24 142/57 (85) 99 02/27/19 20:00 Mechanical Ventilator 02/27/19 20:00 99.1 77 24 153/56 (88) 99 02/27/19 20:00 82 02/27/19 20:00 24 Mechanical Ventilator 40 02/27/19 20:00 40 02/27/19 19:40 76 24 100 Mechanical Ventilator 40 02/27/19 19:30 79 24 155/60 (91) 97 02/27/19 19:28 78 22 40 40 02/27/19 19:28 78 22 97 Mechanical Ventilator 40 02/27/19 19:21 24 Mechanical Ventilator 40 02/27/19 19:00 76 24 151/54 (86) 98 02/27/19 19:00 25 Mechanical Ventilator 40 02/27/19 18:30 7 24 149/60 (89) 98 02/27/19 18:00 74 24 145/55 (85) 98 02/27/19 18:00 25 Mechanical Ventilator 40 02/27/19 17:45 73 24 145/59 (87) 98 02/27/19 17:40 145/59 02/27/19 17:30 74 25 145/59 (87) 98 02/27/19 17:15 75 24 145/59 (87) 98 02/27/19 17:00 75 25 138/61 (86) 98 02/27/19 17:00 24 Mechanical Ventilator 40 02/27/19 17:00 75 24 40 02/27/19 16:58 28 Mechanical Ventilator 40 02/27/19 16:00 70 02/27/19 16:00 Mechanical Ventilator 02/27/19 16:00 98.1 73 21 138/58 (84) 98 02/27/19 16:00 24 Mechanical Ventilator 40 02/27/19 16:00 40 02/27/19 15:00 71 26 143/58 (86) 98 02/27/19 15:00 26 Mechanical Ventilator 40 02/27/19 14:59 71 27 40 02/27/19 14:00 69 24 140/61 (87) 98 02/27/19 14:00 24 Mechanical Ventilator 40 02/27/19 13:46 141/57 02/27/19 13:17 69 27 40 02/27/19 13:06 Mechanical Ventilator 40 02/27/19 13:06 Mechanical Ventilator 40 02/27/19 13:00 24 Mechanical Ventilator 40 02/27/19 13:00 68 25 141/57 (85) 98 02/27/19 12:09 140/74 02/27/19 12:00 98.6 67 28 140/74 (96) 99 02/27/19 12:00 40 02/27/19 12:00 25 Mechanical Ventilator 40 02/27/19 12:00 68 02/27/19 12:00 Mechanical Ventilator Intake and Output 02/27/19 02/28/19 19:00 07:00 Intake Total 1769.000 ml 642 ml Output Total 2325 ml 1150 ml Balance -556.000 ml -508 ml IV Total 1150.000 ml 169 ml Tube Feeding 504 ml 473 ml Other 115 ml Output Urine Total 2325 ml 1150 ml Stool Total 0 ml Laboratory Tests 02/28/19 04:30: White Blood Count 5.0, Red Blood Count 2.91L, Hemoglobin 8.4L, Hematocrit 25.8L , Mean Corpuscular Volume 89, Mean Corpuscular Hemoglobin 28.8, Mean Corpuscular Hemoglobin Concent 32.5, Red Cell Distribution Width 17.1H, Platelet Count 115L, Mean Platelet Volume 6.2L, Neutrophils (%) (Auto) 84.6H, Lymphocytes (%) (Auto) 6.1L, Monocytes (%) (Auto) 8.2, Eosinophils (%) (Auto) 0.8, Basophils (%) (Auto) 0.3, Sodium Level 132L, Potassium Level 4.1, Chloride Level 99, Carbon Dioxide Level 21, Anion Gap 12, Blood Urea Nitrogen 74H, Creatinine 3.2H, Estimat Glomerular Filtration Rate 20.0, Glucose Level 167H, Calcium Level 8.3L, Total Bilirubin 0.4, Aspartate Amino Transf (AST/SGOT) 67H, Alanine Aminotransferase (ALT/SGPT) 51, Alkaline Phosphatase 130H, Total Protein 5.5L, Albumin 2.5L, Globulin 3.0, Albumin/Globulin Ratio 0.8L Height (Feet): 6 Height (Inches): 0.00 Weight (Pounds): 260 General Appearance: no apparent distress EENT: PERRL/EOMI Neck: supple Cardiovascular: normal rate Respiratory/Chest: decreased breath sounds Abdomen: normal bowel sounds, non tender, soft Extremities: non-tender Kg Ricketts MD Feb 28, 2019 11:29
--- NOTE | 2019-02-28 11:40 | Nephrology Progress Note ---
Assessment/Plan Problem List: (1) ISH (acute kidney injury) Assessment: Cr lowering (2) HIV (human immunodeficiency virus infection) (3) NSTEMI (non-ST elevated myocardial infarction) Assessment: troponin decreasing (4) Hypoxia (5) Anemia (6) Diabetes Assessment Acute Renal failure- Cr leveling- Urine out put is good Acidosis improved Acute respiratory failure- Require intubation and Mechanical Ventilation- Anemia- Elevated troponin / [place] HTN DM HIV Antibody + Plan adjust BP meds on feeding 3% saline once IV protonix NGt suction transfusiosn as needed may need HD BP med adjustment ? recheck 2D echo?? UA and urine studies Avoid Nephrotoxics as possible Monitor renal parameters keep BP and BS in check Per orders No HD at this time Kidney RADHA noted adjust BP meds add Isordil Subjective ROS Limited/Unobtainable: Yes Objective Objective Last 24 Hour Vital Signs Date Time Temp Pulse Resp B/P (MAP) Pulse Ox O2 Delivery O2 Flow Rate FiO2 02/28/19 11:00 72 18 146/63 (90) 97 02/28/19 10:30 71 20 149/57 (87) 97 02/28/19 10:21 73 23 40 02/28/19 10:15 73 20 139/64 (89) 99 02/28/19 10:00 71 15 139/64 (89) 98 02/28/19 10:00 76 19 134/79 (97) 98 02/28/19 09:45 71 19 139/64 (89) 97 02/28/19 09:30 73 22 138/51 (80) 96 02/28/19 09:15 77 18 134/79 (97) 98 02/28/19 09:01 141/121 02/28/19 09:00 18 Mechanical Ventilator 40 02/28/19 09:00 76 19 134/79 (97) 98 02/28/19 08:47 77 141/121 02/28/19 08:47 77 141/121 02/28/19 08:45 77 16 141/121 (128) 98 02/28/19 08:39 75 32 40 02/28/19 08:30 76 20 141/121 (128) 97 02/28/19 08:30 18 Mechanical Ventilator 40 02/28/19 08:30 76 20 141/121 (128) 97 02/28/19 08:15 78 18 143/68 (93) 98 02/28/19 08:00 40 02/28/19 08:00 Mechanical Ventilator 02/28/19 08:00 18 Mechanical Ventilator 40 02/28/19 08:00 77 17 143/68 (93) 98 02/28/19 07:30 75 19 144/66 (92) 98 02/28/19 07:28 74 02/28/19 07:10 75 33 98 Mechanical Ventilator 40 02/28/19 07:04 76 31 40 02/28/19 07:03 77 29 98 Mechanical Ventilator 40 02/28/19 07:00 97.5 76 18 148/60 (89) 97 02/28/19 07:00 18 Mechanical Ventilator 40 02/28/19 06:00 24 Mechanical Ventilator 40 02/28/19 06:00 75 24 126/61 (82) 96 02/28/19 05:32 152/59 02/28/19 05:32 152/59 02/28/19 05:30 75 24 152/63 (92) 96 02/28/19 05:12 75 30 40 40 02/28/19 05:00 75 24 152/59 (90) 95 02/28/19 05:00 24 Mechanical Ventilator 40 02/28/19 04:30 76 24 144/68 (93) 94 02/28/19 04:00 73 02/28/19 04:00 40 02/28/19 04:00 24 Mechanical Ventilator 40 02/28/19 04:00 99.2 76 21 150/71 (97) 92 02/28/19 04:00 Mechanical Ventilator 02/28/19 03:30 77 24 148/61 (90) 93 02/28/19 03:28 78 24 143/69 (93) 100 02/28/19 03:00 78 24 151/88 (109) 94 02/28/19 03:00 24 Non-Rebreather 40 02/28/19 02:54 88 24 40 40 02/28/19 02:30 78 24 145/70 (95) 94 02/28/19 02:00 84 24 137/63 (87) 99 02/28/19 02:00 24 Mechanical Ventilator 40 02/28/19 01:32 72 24 100 Mechanical Ventilator 40 02/28/19 01:30 87 24 144/69 (94) 99 02/28/19 01:22 92 25 95 Mechanical Ventilator 40 02/28/19 01:21 92 25 40 40 02/28/19 01:00 24 Mechanical Ventilator 40 02/28/19 01:00 79 24 138/66 (90) 96 02/28/19 00:54 157/64 02/28/19 00:30 79 24 139/63 (88) 96 02/28/19 00:00 79 02/28/19 00:00 24 Mechanical Ventilator 40 02/28/19 00:00 Mechanical Ventilator 02/28/19 00:00 40 02/28/19 00:00 99.5 78 24 133/75 (94) 95 02/27/19 23:30 78 24 138/58 (84) 94 02/27/19 23:00 79 24 128/76 (93) 99 02/27/19 23:00 24 Mechanical Ventilator 40 02/27/19 22:48 79 24 40 40 02/27/19 22:30 80 24 147/60 (89) 95 02/27/19 22:00 24 Mechanical Ventilator 40 02/27/19 22:00 82 24 157/64 (95) 94 02/27/19 21:30 78 24 154/60 (91) 98 02/27/19 21:17 81 24 40 40 02/27/19 21:00 81 24 152/62 (92) 98 02/27/19 21:00 24 Mechanical Ventilator 40 02/27/19 20:59 82 142/57 02/27/19 20:58 142/57 02/27/19 20:58 142/57 02/27/19 20:30 74 24 142/57 (85) 99 02/27/19 20:00 Mechanical Ventilator 02/27/19 20:00 99.1 77 24 153/56 (88) 99 02/27/19 20:00 82 02/27/19 20:00 24 Mechanical Ventilator 40 02/27/19 20:00 40 02/27/19 19:40 76 24 100 Mechanical Ventilator 40 02/27/19 19:30 79 24 155/60 (91) 97 02/27/19 19:28 78 22 40 40 02/27/19 19:28 78 22 97 Mechanical Ventilator 40 02/27/19 19:21 24 Mechanical Ventilator 40 02/27/19 19:00 76 24 151/54 (86) 98 02/27/19 19:00 25 Mechanical Ventilator 40 02/27/19 18:30 7 24 149/60 (89) 98 02/27/19 18:00 74 24 145/55 (85) 98 02/27/19 18:00 25 Mechanical Ventilator 40 02/27/19 17:45 73 24 145/59 (87) 98 02/27/19 17:40 145/59 02/27/19 17:30 74 25 145/59 (87) 98 02/27/19 17:15 75 24 145/59 (87) 98 02/27/19 17:00 75 25 138/61 (86) 98 02/27/19 17:00 24 Mechanical Ventilator 40 02/27/19 17:00 75 24 40 02/27/19 16:58 28 Mechanical Ventilator 40 02/27/19 16:00 70 02/27/19 16:00 Mechanical Ventilator 02/27/19 16:00 98.1 73 21 138/58 (84) 98 02/27/19 16:00 24 Mechanical Ventilator 40 02/27/19 16:00 40 02/27/19 15:00 71 26 143/58 (86) 98 02/27/19 15:00 26 Mechanical Ventilator 40 02/27/19 14:59 71 27 40 02/27/19 14:00 69 24 140/61 (87) 98 02/27/19 14:00 24 Mechanical Ventilator 40 02/27/19 13:46 141/57 02/27/19 13:17 69 27 40 02/27/19 13:06 Mechanical Ventilator 40 02/27/19 13:06 Mechanical Ventilator 40 02/27/19 13:00 24 Mechanical Ventilator 40 02/27/19 13:00 68 25 141/57 (85) 98 02/27/19 12:09 140/74 02/27/19 12:00 98.6 67 28 140/74 (96) 99 02/27/19 12:00 40 02/27/19 12:00 25 Mechanical Ventilator 40 02/27/19 12:00 68 02/27/19 12:00 Mechanical Ventilator Intake and Output 02/27/19 02/28/19 19:00 07:00 Intake Total 1769.000 ml 642 ml Output Total 2325 ml 1150 ml Balance -556.000 ml -508 ml IV Total 1150.000 ml 169 ml Tube Feeding 504 ml 473 ml Other 115 ml Output Urine Total 2325 ml 1150 ml Stool Total 0 ml Laboratory Tests 02/28/19 04:30: White Blood Count 5.0, Red Blood Count 2.91L, Hemoglobin 8.4L, Hematocrit 25.8L , Mean Corpuscular Volume 89, Mean Corpuscular Hemoglobin 28.8, Mean Corpuscular Hemoglobin Concent 32.5, Red Cell Distribution Width 17.1H, Platelet Count 115L, Mean Platelet Volume 6.2L, Neutrophils (%) (Auto) 84.6H, Lymphocytes (%) (Auto) 6.1L, Monocytes (%) (Auto) 8.2, Eosinophils (%) (Auto) 0.8, Basophils (%) (Auto) 0.3, Sodium Level 132L, Potassium Level 4.1, Chloride Level 99, Carbon Dioxide Level 21, Anion Gap 12, Blood Urea Nitrogen 74H, Creatinine 3.2H, Estimat Glomerular Filtration Rate 20.0, Glucose Level 167H, Calcium Level 8.3L, Total Bilirubin 0.4, Aspartate Amino Transf (AST/SGOT) 67H, Alanine Aminotransferase (ALT/SGPT) 51, Alkaline Phosphatase 130H, Total Protein 5.5L, Albumin 2.5L, Globulin 3.0, Albumin/Globulin Ratio 0.8L Height (Feet): 6 Height (Inches): 0.00 Weight (Pounds): 260 General Appearance: no apparent distress Cardiovascular: normal rate Respiratory/Chest: decreased breath sounds Abdomen: distended Objective no change Mike Mcdonald MD Feb 28, 2019 11:40
--- NOTE | 2019-02-28 12:23 | NUR ---
NURSE NOTES: Moderate amount of frothy/tanned sputum noted. Suctioned by RT. Pt is tolerating CPAP, PS 8. O2 sat 96%. RR 20. Will continue to monitor.
[2019-02-28] MEDS ORDERED: Tubing IV Secondary IV ONE (12:48)
[2019-02-28] MEDS ORDERED: NS 275ml ONE (12:48)
--- NOTE | 2019-02-28 12:50 | NUR ---
NURSE NOTES: Simon catheter completely clogged and not able to flush. Simon removed and new one, Fr [address] Costa removed João catheter with pigtail. Small amount of bleeding noted. Pressure and pressure dressing applied.
--- NOTE | 2019-02-28 13:24 | Pulmonolgy Critical Care Note ---
Critical Care - Asmt/Plan Problems: (1) Endotracheally intubated (2) Acute hypoxemic respiratory failure (3) Pneumonia (4) NSTEMI (non-ST elevated myocardial infarction) (5) AIDS (6) HIV disease (7) Hypertension (8) MDD (major depressive disorder), recurrent episode, moderate (9) Anemia (10) CKD (chronic kidney disease) (11) History of stroke (12) Diabetes (13) Anxiety (14) Malignant hypertension (15) Occult blood positive stool Assessment/Plan: VDRF, extubated 02/19, re-intubated 02/20 Hemoptysis, hematemesis ARDS Acute respiratory failure B pulmonary infiltrates, ? multilobar CAP vs atypical infection vs other ? PJP AIDS (CD4 191) NSTEMI H/O prior CVA HTN HL DM with uncontrolled BS ISH on CKD Anemia, FOBT + PLAN: Continue ventilatory support/settings reviewed Hold Fent @ 6 am, SBT in am Trach if unable to extubated Keep PEEP 5, titrate down FiO2 to keep SaO2 > 90% RTC and PRN HHN's Continue Abx per ID (Clinda/Primaqui, Cefepime) + flucon per ID Off steroids Monitor volumes and renal function --> D/W Tamara Rachel, continue Zaroxyln 10, another Lasix 40 IV x 1 today, may end up needing HD F/U cards recs: will need further ischemia eval/cath once stabilized DVT Px: Hep SQ Monitor for bleeding, F/U GI recs F/U ENDO recs TF's as raul FC, continue to discuss GOC D/W RN and RT @ bedside CCT 45 Time Spent (Minutes): 40 Critical Care - Objective Last 24 Hour Vital Signs Date Time Temp Pulse Resp B/P (MAP) Pulse Ox O2 Delivery O2 Flow Rate FiO2 02/28/19 12:50 Mechanical Ventilator 02/28/19 12:40 72 25 98 Mechanical Ventilator 40 02/28/19 12:33 72 25 95 Mechanical Ventilator 40 02/28/19 12:33 71 25 02/28/19 12:08 142/63 02/28/19 12:00 Mechanical Ventilator 02/28/19 12:00 40 02/28/19 12:00 97.5 71 22 142/63 (89) 97 02/28/19 11:00 72 18 146/63 (90) 97 02/28/19 10:30 71 20 149/57 (87) 97 02/28/19 10:21 73 23 40 02/28/19 10:20 40 02/28/19 10:15 73 20 139/64 (89) 99 02/28/19 10:00 71 15 139/64 (89) 98 02/28/19 10:00 76 19 134/79 (97) 98 02/28/19 09:45 71 19 139/64 (89) 97 02/28/19 09:30 73 22 138/51 (80) 96 02/28/19 09:15 77 18 134/79 (97) 98 02/28/19 09:01 141/121 02/28/19 09:00 18 Mechanical Ventilator 40 02/28/19 09:00 76 19 134/79 (97) 98 02/28/19 08:47 77 141/121 02/28/19 08:47 77 141/121 02/28/19 08:45 77 16 141/121 (128) 98 02/28/19 08:39 75 32 40 02/28/19 08:30 76 20 141/121 (128) 97 02/28/19 08:30 18 Mechanical Ventilator 40 02/28/19 08:30 76 20 141/121 (128) 97 02/28/19 08:15 78 18 143/68 (93) 98 02/28/19 08:00 40 02/28/19 08:00 Mechanical Ventilator 02/28/19 08:00 18 Mechanical Ventilator 40 02/28/19 08:00 77 17 143/68 (93) 98 02/28/19 07:30 75 19 144/66 (92) 98 02/28/19 07:28 74 02/28/19 07:10 75 33 98 Mechanical Ventilator 40 02/28/19 07:04 76 31 40 02/28/19 07:03 77 29 98 Mechanical Ventilator 40 02/28/19 07:00 97.5 76 18 148/60 (89) 97 02/28/19 07:00 18 Mechanical Ventilator 40 02/28/19 06:00 24 Mechanical Ventilator 40 02/28/19 06:00 75 24 126/61 (82) 96 02/28/19 05:32 152/59 02/28/19 05:32 152/59 02/28/19 05:30 75 24 152/63 (92) 96 02/28/19 05:12 75 30 40 40 02/28/19 05:00 75 24 152/59 (90) 95 02/28/19 05:00 24 Mechanical Ventilator 40 02/28/19 04:30 76 24 144/68 (93) 94 02/28/19 04:00 73 02/28/19 04:00 40 02/28/19 04:00 24 Mechanical Ventilator 40 02/28/19 04:00 99.2 76 21 150/71 (97) 92 02/28/19 04:00 Mechanical Ventilator 02/28/19 03:30 77 24 148/61 (90) 93 02/28/19 03:28 78 24 143/69 (93) 100 02/28/19 03:00 78 24 151/88 (109) 94 02/28/19 03:00 24 Non-Rebreather 40 02/28/19 02:54 88 24 40 40 02/28/19 02:30 78 24 145/70 (95) 94 02/28/19 02:00 84 24 137/63 (87) 99 02/28/19 02:00 24 Mechanical Ventilator 40 02/28/19 01:32 72 24 100 Mechanical Ventilator 40 02/28/19 01:30 87 24 144/69 (94) 99 02/28/19 01:22 92 25 95 Mechanical Ventilator 40 02/28/19 01:21 92 25 40 40 02/28/19 01:00 24 Mechanical Ventilator 40 02/28/19 01:00 79 24 138/66 (90) 96 02/28/19 00:54 157/64 02/28/19 00:30 79 24 139/63 (88) 96 02/28/19 00:00 79 02/28/19 00:00 24 Mechanical Ventilator 40 02/28/19 00:00 Mechanical Ventilator 02/28/19 00:00 40 02/28/19 00:00 99.5 78 24 133/75 (94) 95 02/27/19 23:30 78 24 138/58 (84) 94 02/27/19 23:00 79 24 128/76 (93) 99 02/27/19 23:00 24 Mechanical Ventilator 40 02/27/19 22:48 79 24 40 40 02/27/19 22:30 80 24 147/60 (89) 95 02/27/19 22:00 24 Mechanical Ventilator 40 02/27/19 22:00 82 24 157/64 (95) 94 02/27/19 21:30 78 24 154/60 (91) 98 02/27/19 21:17 81 24 40 40 02/27/19 21:00 81 24 152/62 (92) 98 02/27/19 21:00 24 Mechanical Ventilator 40 02/27/19 20:59 82 142/57 02/27/19 20:58 142/57 02/27/19 20:58 142/57 02/27/19 20:30 74 24 142/57 (85) 99 02/27/19 20:00 Mechanical Ventilator 02/27/19 20:00 99.1 77 24 153/56 (88) 99 02/27/19 20:00 82 02/27/19 20:00 24 Mechanical Ventilator 40 02/27/19 20:00 40 02/27/19 19:40 76 24 100 Mechanical Ventilator 40 02/27/19 19:30 79 24 155/60 (91) 97 02/27/19 19:28 78 22 40 40 02/27/19 19:28 78 22 97 Mechanical Ventilator 40 02/27/19 19:21 24 Mechanical Ventilator 40 02/27/19 19:00 76 24 151/54 (86) 98 02/27/19 19:00 25 Mechanical Ventilator 40 02/27/19 18:30 7 24 149/60 (89) 98 02/27/19 18:00 74 24 145/55 (85) 98 02/27/19 18:00 25 Mechanical Ventilator 40 02/27/19 17:45 73 24 145/59 (87) 98 02/27/19 17:40 145/59 02/27/19 17:30 74 25 145/59 (87) 98 02/27/19 17:15 75 24 145/59 (87) 98 02/27/19 17:00 75 25 138/61 (86) 98 02/27/19 17:00 24 Mechanical Ventilator 40 02/27/19 17:00 75 24 40 02/27/19 16:58 28 Mechanical Ventilator 40 02/27/19 16:00 70 02/27/19 16:00 Mechanical Ventilator 02/27/19 16:00 98.1 73 21 138/58 (84) 98 02/27/19 16:00 24 Mechanical Ventilator 40 02/27/19 16:00 40 02/27/19 15:00 71 26 143/58 (86) 98 02/27/19 15:00 26 Mechanical Ventilator 40 02/27/19 14:59 71 27 40 02/27/19 14:00 69 24 140/61 (87) 98 02/27/19 14:00 24 Mechanical Ventilator 40 02/27/19 13:46 141/57 Status: sedated Condition: improving HEENT: atraumatic, normocephalic Lungs: rhonchi Heart: HR/BP stable Abdomen: soft, non-tender, active bowel sounds Extremities: edema - 2+ Accucheck: 201 Blood Sugars: BS controlled Critical Care - Subjective ROS Limited/Unobtainable: Yes ICU Day: 23 Intubation Day: 8 Interval Events: Raul SBT S/P PICC CVC removed Insufficient fluid for para/thora I/O inaccurate FOBT + Condition: critical IV Access: PICC EKG Rhythm: Sinus Rhythm FI02: 40 Vent Support Breath Rate: 24 Vent Support Mode: CPAP Vent Tidal Volume: 550 Sputum Amount: Moderate PEEP: 5.0 PIP: 16 Tube Feeding Amount: 43 I&O: Intake and Output 02/27/19 02/28/19 19:00 07:00 Intake Total 1769.000 ml 715 ml Output Total 2325 ml 1200 ml Balance -556.000 ml -485 ml Free Water 30 ml IV Total 1150.000 ml 169 ml Tube Feeding 504 ml 516 ml Other 115 ml Output Urine Total 2325 ml 1200 ml Stool Total 0 ml Subjective: CONRAD ET-Tube: 7.5 ET Position: 24 Labs: Laboratory Tests Test 02/28/19 04:30 White Blood Count 5.0 K/UL (4.8-10.8) Red Blood Count 2.91 M/UL (4.70-6.10) L Hemoglobin 8.4 G/DL (14.2-18.0) L Hematocrit 25.8 % (42.0-52.0) L Mean Corpuscular Volume 89 FL (80-99) Mean Corpuscular Hemoglobin 28.8 PG (27.0-31.0) Mean Corpuscular Hemoglobin Concent 32.5 G/DL (32.0-36.0) Red Cell Distribution Width 17.1 % (11.6-14.8) H Platelet Count 115 K/UL (150-450) L Mean Platelet Volume 6.2 FL (6.5-10.1) L Neutrophils (%) (Auto) 84.6 % (45.0-75.0) H Lymphocytes (%) (Auto) 6.1 % (20.0-45.0) L Monocytes (%) (Auto) 8.2 % (1.0-10.0) Eosinophils (%) (Auto) 0.8 % (0.0-3.0) Basophils (%) (Auto) 0.3 % (0.0-2.0) Sodium Level 132 MMOL/L (136-145) L Potassium Level 4.1 MMOL/L (3.5-5.1) Chloride Level 99 MMOL/L (98-107) Carbon Dioxide Level 21 MMOL/L (21-32) Anion Gap 12 mmol/L (5-15) Blood Urea Nitrogen 74 mg/dL (7-18) H Creatinine 3.2 MG/DL (0.55-1.30) H Estimat Glomerular Filtration Rate 20.0 mL/min (>60) Glucose Level 167 MG/DL (74-106) H Calcium Level 8.3 MG/DL (8.5-10.1) L Total Bilirubin 0.4 MG/DL (0.2-1.0) Aspartate Amino Transf (AST/SGOT) 67 U/L (15-37) H Alanine Aminotransferase (ALT/SGPT) 51 U/L (12-78) Alkaline Phosphatase 130 U/L (46-116) H Total Protein 5.5 G/DL (6.4-8.2) L Albumin 2.5 G/DL (3.4-5.0) L Globulin 3.0 g/dL Albumin/Globulin Ratio 0.8 (1.0-2.7) L Brett Merediht MD Feb 28, 2019 13:24
--- NOTE | 2019-02-28 13:28 | Infectious Diseases Prog Note ---
Assessment/Plan Assessment/Plan A) 1) pneumonia - ? aspiration/hcap, ? CAP, ? pneumocystis pna, ? fungal ( cryptococcus), sepsis, leukocytosis, ? line infection, ARDS, chf/edema 2) intubated on vent, s/p bronchoscopy, ARF, ? 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, on anti-retroviral treatment 4) rule out TB pna, in isolation - afb smear on bronchoscopy is negative, TB spot negative 5) pmh noted - hypertension, ckd, anemia, dm, cva, tia, migraines 6) allergies - nkda, sh-negative, fh-nc, mar noted 7) d/w RN P) 1) abx changed to clindamycin/primaquine (for pneumocystis pna), cefepime, and diflucan, bactrim stopped for worsening creatinine - day # 17 pneumocystis treatment - recheck sputum culture (increased secretions per RN) 2) leukocytosis better, monitor labs and chest x-ray, no fevers, no pressors 3) diarrhea but on stool softeners 4) weaning per pulmonary medicine 5) icu supportive care, vent support 6) skin care per protocol 7) d/w Dr. Meredith Subjective Constitutional: Reports: fatigue, other - sedated, on vent, no pressors ; Denies: fever Respiratory: Reports: shortness of breath Cardiovascular: Denies: chest pain Gastrointestinal/Abdominal: Reports: diarrhea, other - + rectal tube, on colace ; Denies: nausea, vomiting Genitourinary: Reports: other - + smith - uo good Neurologic: Reports: other - sedated, on vent Psychiatric: Reports: other - NA Skin: Denies: rash Hematologic: Denies: bleeding Musculoskeletal: Reports: other - NA Allergies: Coded Allergies: No Known Allergies (Unverified , 02/05/13) Objective Vital Signs Last 24 Hour Vital Signs Date Time Temp Pulse Resp B/P (MAP) Pulse Ox O2 Delivery O2 Flow Rate FiO2 02/28/19 12:50 Mechanical Ventilator 02/28/19 12:40 72 25 98 Mechanical Ventilator 40 02/28/19 12:33 72 25 95 Mechanical Ventilator 40 02/28/19 12:33 71 25 02/28/19 12:08 142/63 02/28/19 12:00 Mechanical Ventilator 02/28/19 12:00 40 02/28/19 12:00 97.5 71 22 142/63 (89) 97 02/28/19 11:00 72 18 146/63 (90) 97 02/28/19 10:30 71 20 149/57 (87) 97 02/28/19 10:21 73 23 40 02/28/19 10:20 40 02/28/19 10:15 73 20 139/64 (89) 99 02/28/19 10:00 71 15 139/64 (89) 98 02/28/19 10:00 76 19 134/79 (97) 98 02/28/19 09:45 71 19 139/64 (89) 97 02/28/19 09:30 73 22 138/51 (80) 96 02/28/19 09:15 77 18 134/79 (97) 98 02/28/19 09:01 141/121 02/28/19 09:00 18 Mechanical Ventilator 40 02/28/19 09:00 76 19 134/79 (97) 98 02/28/19 08:47 77 141/121 02/28/19 08:47 77 141/121 02/28/19 08:45 77 16 141/121 (128) 98 02/28/19 08:39 75 32 40 02/28/19 08:30 76 20 141/121 (128) 97 02/28/19 08:30 18 Mechanical Ventilator 40 02/28/19 08:30 76 20 141/121 (128) 97 02/28/19 08:15 78 18 143/68 (93) 98 02/28/19 08:00 40 02/28/19 08:00 Mechanical Ventilator 02/28/19 08:00 18 Mechanical Ventilator 40 02/28/19 08:00 77 17 143/68 (93) 98 02/28/19 07:30 75 19 144/66 (92) 98 02/28/19 07:28 74 02/28/19 07:10 75 33 98 Mechanical Ventilator 40 02/28/19 07:04 76 31 40 02/28/19 07:03 77 29 98 Mechanical Ventilator 40 02/28/19 07:00 97.5 76 18 148/60 (89) 97 02/28/19 07:00 18 Mechanical Ventilator 40 02/28/19 06:00 24 Mechanical Ventilator 40 02/28/19 06:00 75 24 126/61 (82) 96 02/28/19 05:32 152/59 02/28/19 05:32 152/59 02/28/19 05:30 75 24 152/63 (92) 96 02/28/19 05:12 75 30 40 40 02/28/19 05:00 75 24 152/59 (90) 95 02/28/19 05:00 24 Mechanical Ventilator 40 02/28/19 04:30 76 24 144/68 (93) 94 02/28/19 04:00 73 02/28/19 04:00 40 02/28/19 04:00 24 Mechanical Ventilator 40 02/28/19 04:00 99.2 76 21 150/71 (97) 92 02/28/19 04:00 Mechanical Ventilator 02/28/19 03:30 77 24 148/61 (90) 93 02/28/19 03:28 78 24 143/69 (93) 100 02/28/19 03:00 78 24 151/88 (109) 94 02/28/19 03:00 24 Non-Rebreather 40 02/28/19 02:54 88 24 40 40 02/28/19 02:30 78 24 145/70 (95) 94 02/28/19 02:00 84 24 137/63 (87) 99 02/28/19 02:00 24 Mechanical Ventilator 40 02/28/19 01:32 72 24 100 Mechanical Ventilator 40 02/28/19 01:30 87 24 144/69 (94) 99 02/28/19 01:22 92 25 95 Mechanical Ventilator 40 02/28/19 01:21 92 25 40 40 02/28/19 01:00 24 Mechanical Ventilator 40 02/28/19 01:00 79 24 138/66 (90) 96 02/28/19 00:54 157/64 02/28/19 00:30 79 24 139/63 (88) 96 02/28/19 00:00 79 02/28/19 00:00 24 Mechanical Ventilator 40 02/28/19 00:00 Mechanical Ventilator 02/28/19 00:00 40 02/28/19 00:00 99.5 78 24 133/75 (94) 95 02/27/19 23:30 78 24 138/58 (84) 94 02/27/19 23:00 79 24 128/76 (93) 99 02/27/19 23:00 24 Mechanical Ventilator 40 02/27/19 22:48 79 24 40 40 02/27/19 22:30 80 24 147/60 (89) 95 02/27/19 22:00 24 Mechanical Ventilator 40 02/27/19 22:00 82 24 157/64 (95) 94 02/27/19 21:30 78 24 154/60 (91) 98 02/27/19 21:17 81 24 40 40 02/27/19 21:00 81 24 152/62 (92) 98 02/27/19 21:00 24 Mechanical Ventilator 40 02/27/19 20:59 82 142/57 02/27/19 20:58 142/57 02/27/19 20:58 142/57 02/27/19 20:30 74 24 142/57 (85) 99 02/27/19 20:00 Mechanical Ventilator 02/27/19 20:00 99.1 77 24 153/56 (88) 99 02/27/19 20:00 82 02/27/19 20:00 24 Mechanical Ventilator 40 02/27/19 20:00 40 02/27/19 19:40 76 24 100 Mechanical Ventilator 40 02/27/19 19:30 79 24 155/60 (91) 97 02/27/19 19:28 78 22 40 40 02/27/19 19:28 78 22 97 Mechanical Ventilator 40 02/27/19 19:21 24 Mechanical Ventilator 40 02/27/19 19:00 76 24 151/54 (86) 98 02/27/19 19:00 25 Mechanical Ventilator 40 02/27/19 18:30 7 24 149/60 (89) 98 02/27/19 18:00 74 24 145/55 (85) 98 02/27/19 18:00 25 Mechanical Ventilator 40 02/27/19 17:45 73 24 145/59 (87) 98 02/27/19 17:40 145/59 02/27/19 17:30 74 25 145/59 (87) 98 02/27/19 17:15 75 24 145/59 (87) 98 02/27/19 17:00 75 25 138/61 (86) 98 02/27/19 17:00 24 Mechanical Ventilator 40 02/27/19 17:00 75 24 40 02/27/19 16:58 28 Mechanical Ventilator 40 02/27/19 16:00 70 02/27/19 16:00 Mechanical Ventilator 02/27/19 16:00 98.1 73 21 138/58 (84) 98 02/27/19 16:00 24 Mechanical Ventilator 40 02/27/19 16:00 40 02/27/19 15:00 71 26 143/58 (86) 98 02/27/19 15:00 26 Mechanical Ventilator 40 02/27/19 14:59 71 27 40 02/27/19 14:00 69 24 140/61 (87) 98 02/27/19 14:00 24 Mechanical Ventilator 40 02/27/19 13:46 141/57 02/27/19 13:17 69 27 40 02/27/19 13:06 Mechanical Ventilator 40 02/27/19 13:06 Mechanical Ventilator 40 Height (Feet): 6 Height (Inches): 0.00 Weight (Pounds): 260 General Appearance: other HEENT: normocephalic, atraumatic, no JVD, other - eyes - covered, redness per RN and on eye drops Respiratory/Chest: crackles/rales, rhonchi - bilaterally Cardiovascular: normal rate, regular rhythm, no gallop/murmur, no JVD Abdomen: normal bowel sounds, soft, non tender, no organomegaly, other - some bowel distention Genitourinary: other - + smith - urine clear Extremities: no cyanosis Skin: no rash 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 Enteric tube courses past the diaphragm and out of the field of view. Lungs/pleura: Slightly decreased but persistent patchy consolidations in the right lung. Slightly decreased left perihilar opacities/consolidations. Possible small bilateral pleural effusions. Heart/mediastinum: Stable mild enlargement of the cardiomediastinal silhouette. Soft tissues: Unremarkable. Bones: No acute fracture. Degenerative changes of the visualized right acromioclavicular joint. Degenerative changes of the spine. Upper abdomen: Normal. 02/11/19 - chest x-ray - IMPRESSION: Slightly decreased but persistent patchy consolidations in the right lung. Slightly decreased left perihilar opacities. Findings may IMPRESSION: 1. No significant change in the interstitial and alveolar opacities in bilateral lungs. 2. Possible small bilateral pleural effusions, unchanged. represent infectious/inflammatory process and/or pulmonary edema. Possible small bilateral pleural effusions. 02/16/19 - chest x-ray - Impression: Worsening of aeration with increasing interstitial and bilateral predominantly perihilar airspace disease. Findings likely related to worsening CHF/pulmonary edema. Superimposed pneumonia to be excluded clinically. Follow-up recommended. Chest x-ray - 02/18/19 - COMPARISON: Chest radiograph on 02/16/2019 FINDINGS: Hardware: Endotracheal tube terminates in the region of the mid thoracic trachea. Enteric tube courses past the diaphragm and out of the field of view. Lungs/pleura: Slightly decreased but persistent hazy and interstitial opacities. Persistent small left pleural effusion. Heart/mediastinum: Stable mild enlargement of the cardiomediastinal silhouette. Soft tissues: Unremarkable. Bones: No acute fracture. Upper abdomen: Normal. IMPRESSION: Slightly decreased but persistent changes suggesting pulmonary edema. Component of infectious/inflammatory process is not excluded. Persistent small left pleural effusion. Chest x-ray - 02/20/19 - Procedure: XRAY Chest 1v Indication: Dyspnea Comparison: Earlier same day A single view chest radiograph was obtained. Findings: Intubation noted. The endotracheal tube is in good position about 3 cm above the christal. Cardiomegaly again noted. Moderate pulmonary vascular congestion demonstrated. IMPRESSION: Endotracheal tube in good position. CHF Chest x-ray - - FINDINGS: The tip of the endotracheal tube is appropriately positioned, projecting between the clavicular heads. The sidehole of the enteric tube projects within the stomach. Extensive bilateral consolidation is again noted. Favor multilobar pneumonia. Heart size is borderline, but likely exaggerated by portable technique. No pneumothorax. Bony degenerative changes. IMPRESSION: Extensive airspace consolidation, similar to prior. Favor multilobar pneumonia. Appropriately positioned tubes. Chest x-ray - 02/24/19 - IMPRESSION: No significant interval change compared to the prior chest x-ray. Cardiomegaly with diffuse interstitial and alveolar opacities, which may represent pulmonary edema versus pneumonia. Chest x-ray - 02/26/19 - IMPRESSION: No significant interval change compared to the prior chest x-ray. Cardiomegaly with diffuse interstitial and alveolar opacities, which may represent pulmonary edema versus pneumonia. Microbiology Date/Time Source Procedure Growth Status 02/20/19 19:00 Blood Blood Culture - Final NO GROWTH AFTER 5 DAYS Complete 02/22/19 05:47 Sputum Expectorated Pneumocystis jiroveci Smear (DFA) - Final Complete 02/20/19 18:45 Indwelling Cath Urine Culture - Final NO GROWTH AFTER 48 HOURS Complete 02/06/19 17:10 Rectal Mucosa - Final NO CARBAPENEM-RESISTANT ENTEROBACTERI... Complete Microbiology Date/Time Source Procedure Growth Status 02/20/19 19:00 Blood Blood Culture - Final NO GROWTH AFTER 5 DAYS Complete 02/22/19 05:47 Sputum Expectorated Pneumocystis jiroveci Smear (DFA) - Final Complete 02/20/19 18:45 Indwelling Cath Urine Culture - Final NO GROWTH AFTER 48 HOURS Complete 02/06/19 17:10 Rectal Mucosa - Final NO CARBAPENEM-RESISTANT ENTEROBACTERI... Complete Laboratory Tests Test 02/28/19 04:30 White Blood Count 5.0 K/UL (4.8-10.8) Red Blood Count 2.91 M/UL (4.70-6.10) L Hemoglobin 8.4 G/DL (14.2-18.0) L Hematocrit 25.8 % (42.0-52.0) L Mean Corpuscular Volume 89 FL (80-99) Mean Corpuscular Hemoglobin 28.8 PG (27.0-31.0) Mean Corpuscular Hemoglobin Concent 32.5 G/DL (32.0-36.0) Red Cell Distribution Width 17.1 % (11.6-14.8) H Platelet Count 115 K/UL (150-450) L Mean Platelet Volume 6.2 FL (6.5-10.1) L Neutrophils (%) (Auto) 84.6 % (45.0-75.0) H Lymphocytes (%) (Auto) 6.1 % (20.0-45.0) L Monocytes (%) (Auto) 8.2 % (1.0-10.0) Eosinophils (%) (Auto) 0.8 % (0.0-3.0) Basophils (%) (Auto) 0.3 % (0.0-2.0) Sodium Level 132 MMOL/L (136-145) L Potassium Level 4.1 MMOL/L (3.5-5.1) Chloride Level 99 MMOL/L (98-107) Carbon Dioxide Level 21 MMOL/L (21-32) Anion Gap 12 mmol/L (5-15) Blood Urea Nitrogen 74 mg/dL (7-18) H Creatinine 3.2 MG/DL (0.55-1.30) H Estimat Glomerular Filtration Rate 20.0 mL/min (>60) Glucose Level 167 MG/DL (74-106) H Calcium Level 8.3 MG/DL (8.5-10.1) L Total Bilirubin 0.4 MG/DL (0.2-1.0) Aspartate Amino Transf (AST/SGOT) 67 U/L (15-37) H Alanine Aminotransferase (ALT/SGPT) 51 U/L (12-78) Alkaline Phosphatase 130 U/L (46-116) H Total Protein 5.5 G/DL (6.4-8.2) L Albumin 2.5 G/DL (3.4-5.0) L Globulin 3.0 g/dL Albumin/Globulin Ratio 0.8 (1.0-2.7) L Current Medications Medications (Trade) Dose Ordered Sig/Marquis Route PRN Reason Start Time Stop Time Status Last Admin Dose Admin Acetaminophen (Tylenol) 650 mg Q4H PRN ORAL Mild Pain (Pain Scale 1-3) 02/07/19 11:15 03/08/19 17:29 02/22/19 14:37 Acetaminophen/ Butalbital/ Caffeine (Fioricet) 1 tab Q8H PRN ORAL For Headache 02/08/19 17:15 03/10/19 17:14 Albuterol/ Ipratropium (Albuterol/ Ipratropium) 3 ml Q4H PRN HHN Shortness of Breath 02/26/19 12:30 03/03/19 12:29 Albuterol/ Ipratropium (Albuterol/ Ipratropium) 3 ml Q6HRT HHN 02/26/19 13:00 03/03/19 12:59 02/28/19 12:33 Amlodipine Besylate (Norvasc) 10 mg DAILY NG 02/15/19 09:00 03/14/19 15:59 02/28/19 08:47 Artificial Tears (Lacri-Lube) 1 applic AC+HS BOTH EYES 02/18/19 06:30 03/20/19 06:29 02/28/19 12:07 Bisacodyl (Dulcolax) 5 mg DAILYPRN PRN ORAL Constipation 02/08/19 17:15 03/10/19 17:14 02/25/19 12:45 Cefepime HCl 1 gm/ Dextrose 55 ml @ 110 mls/hr Q24H IVPB 02/27/19 16:00 03/06/19 15:59 02/27/19 16:39 Chlorhexidine Gluconate (Jessy-Hex 2%) 1 applic DAILY@2000 TOPIC 02/25/19 20:00 03/27/19 19:59 02/27/19 19:20 Clindamycin HCl/ Dextrose 50 ml @ 100 mls/hr Q8HR IV 02/27/19 22:00 03/06/19 21:59 02/28/19 05:32 Clonidine HCl (Catapres Tab) 0.1 mg EVERY 12 HOURS NG 02/25/19 21:00 03/19/19 13:59 02/28/19 09:01 Dextrose (Dextrose 50%) 25 ml Q30M PRN IV Hypoglycemia 02/26/19 07:30 03/28/19 07:29 Dextrose (Dextrose 50%) 50 ml Q30M PRN IV Hypoglycemia 02/26/19 07:30 03/28/19 07:29 Docusate Sodium (Colace) 100 mg TID GT 02/12/19 18:00 03/12/19 08:59 02/28/19 12:07 Fentanyl Citrate 2500 mcg/Sodium Chloride 250 ml @ 0 mls/hr Q24H IV 02/23/19 20:30 03/02/19 20:29 02/27/19 19:21 Fluconazole/ Sodium Chloride 100 ml @ 100 mls/hr Q24H IV 02/26/19 18:00 03/05/19 17:59 02/27/19 17:41 Guaifenesin (Mucinex ER) 600 mg TWICE A DAY ORAL 02/07/19 18:00 03/09/19 08:59 02/28/19 08:46 Heparin Sodium (Porcine) (Heparin 5000 units/ml) 5,000 units EVERY 12 HOURS SUBQ 02/26/19 21:00 03/28/19 20:59 02/27/19 21:00 Hydralazine HCl (Apresoline) 10 mg Q4H PRN IV bp over 165 syst 02/17/19 10:15 03/19/19 10:14 02/19/19 14:45 Hydralazine HCl (Apresoline) 50 mg Q8HR NG 02/22/19 14:00 03/21/19 21:59 02/28/19 05:32 Insulin Aspart (NovoLOG) EVERY 6 HOURS SUBQ 02/26/19 12:00 03/28/19 11:59 02/28/19 12:08 Isosorbide Dinitrate (Isordil) 20 mg Q6HR NG 02/22/19 12:00 03/15/19 12:59 02/28/19 12:08 Lorazepam (Ativan 2mg/ml 1ml) 2 mg Q2H PRN IV For Anxiety 02/27/19 13:48 03/06/19 13:47 02/28/19 05:34 Metoclopramide HCl (Reglan) 5 mg Q8H IVP 02/26/19 09:00 03/28/19 08:59 02/28/19 08:46 Metolazone (Zaroxolyn) 10 mg DAILY NG 02/19/19 10:00 03/21/19 09:59 02/28/19 08:46 Metoprolol Tartrate (Lopressor) 100 mg Q12HR ORAL 02/22/19 21:00 03/08/19 20:59 02/28/19 08:47 Midazolam HCl (Versed 2mg/2ml vial) 1 mg Q2H PRN IVP Agitation 02/13/19 08:45 03/15/19 08:44 02/27/19 11:05 Neomycin/ Polymyxin/ Dexamethasone (Maxitrol Opth Oint) 1 applic BEDTIME BOTH EYES 02/18/19 21:00 03/20/19 20:59 02/27/19 21:01 Nitroglycerin (Ntg) 0.4 mg Q5M PRN SL Prn Chest Pain 02/07/19 11:00 03/08/19 17:29 02/08/19 07:42 Ondansetron HCl (Zofran) 4 mg Q6H PRN IVP Nausea & Vomiting 02/07/19 11:15 03/08/19 11:14 02/09/19 00:58 Pantoprazole (Protonix) 40 mg DAILY IVP 02/26/19 09:00 03/24/19 20:59 02/28/19 08:46 Patient Own Medication (Patient's Own Med) 1 ea BID ORAL 02/07/19 18:00 03/09/19 17:59 02/28/19 08:48 Patient Own Medication (Patient's Own Med) 1 ea Q48H ORAL 02/18/19 09:00 03/20/19 08:59 02/28/19 08:48 Patient Own Medication (Patient's Own Med) 2 ea DAILY ORAL 02/08/19 09:00 03/10/19 08:59 02/28/19 08:48 Polyethylene Glycol (Miralax) 17 gm BEDTIME ORAL 02/08/19 21:00 03/10/19 20:59 02/25/19 20:56 Primaquine Phosphate (Primaquine) 26.3 mg DAILY ORAL 02/28/19 09:00 03/30/19 08:59 02/28/19 08:47 Sennosides (Senokot) 8.6 mg DAILY ORAL 02/13/19 12:00 03/15/19 11:59 02/28/19 08:46 Russ Tony MD Feb 28, 2019 13:28
--- NOTE | 2019-02-28 13:57 | Surgery Progress Note ---
Surgery Progress Note Subjective Procedure Performed left femoral temporary Hemodialysis catheter insertion Additional Comments no acute events picc placed on vent unable to wean Objective Last 24 Hour Vital Signs Date Time Temp Pulse Resp B/P (MAP) Pulse Ox O2 Delivery O2 Flow Rate FiO2 02/28/19 13:00 72 18 146/63 (90) 97 02/28/19 13:00 73 23 137/66 (89) 97 02/28/19 12:50 Mechanical Ventilator 02/28/19 12:40 72 25 98 Mechanical Ventilator 40 02/28/19 12:33 72 25 95 Mechanical Ventilator 40 02/28/19 12:33 71 25 02/28/19 12:08 142/63 02/28/19 12:00 Mechanical Ventilator 02/28/19 12:00 40 02/28/19 12:00 97.5 71 22 142/63 (89) 97 02/28/19 11:00 72 18 146/63 (90) 97 02/28/19 10:30 71 20 149/57 (87) 97 02/28/19 10:21 73 23 40 02/28/19 10:20 40 02/28/19 10:15 73 20 139/64 (89) 99 02/28/19 10:00 71 15 139/64 (89) 98 02/28/19 10:00 76 19 134/79 (97) 98 02/28/19 09:45 71 19 139/64 (89) 97 02/28/19 09:30 73 22 138/51 (80) 96 02/28/19 09:15 77 18 134/79 (97) 98 02/28/19 09:01 141/121 02/28/19 09:00 18 Mechanical Ventilator 40 02/28/19 09:00 76 19 134/79 (97) 98 02/28/19 08:47 77 141/121 02/28/19 08:47 77 141/121 02/28/19 08:45 77 16 141/121 (128) 98 02/28/19 08:39 75 32 40 02/28/19 08:30 76 20 141/121 (128) 97 02/28/19 08:30 18 Mechanical Ventilator 40 02/28/19 08:30 76 20 141/121 (128) 97 02/28/19 08:15 78 18 143/68 (93) 98 02/28/19 08:00 40 02/28/19 08:00 Mechanical Ventilator 02/28/19 08:00 18 Mechanical Ventilator 40 02/28/19 08:00 77 17 143/68 (93) 98 02/28/19 07:30 75 19 144/66 (92) 98 02/28/19 07:28 74 02/28/19 07:10 75 33 98 Mechanical Ventilator 40 02/28/19 07:04 76 31 40 02/28/19 07:03 77 29 98 Mechanical Ventilator 40 02/28/19 07:00 97.5 76 18 148/60 (89) 97 02/28/19 07:00 18 Mechanical Ventilator 40 02/28/19 06:00 24 Mechanical Ventilator 40 02/28/19 06:00 75 24 126/61 (82) 96 02/28/19 05:32 152/59 02/28/19 05:32 152/59 02/28/19 05:30 75 24 152/63 (92) 96 02/28/19 05:12 75 30 40 40 02/28/19 05:00 75 24 152/59 (90) 95 02/28/19 05:00 24 Mechanical Ventilator 40 02/28/19 04:30 76 24 144/68 (93) 94 02/28/19 04:00 73 02/28/19 04:00 40 02/28/19 04:00 24 Mechanical Ventilator 40 02/28/19 04:00 99.2 76 21 150/71 (97) 92 02/28/19 04:00 Mechanical Ventilator 02/28/19 03:30 77 24 148/61 (90) 93 02/28/19 03:28 78 24 143/69 (93) 100 02/28/19 03:00 78 24 151/88 (109) 94 02/28/19 03:00 24 Non-Rebreather 40 02/28/19 02:54 88 24 40 40 02/28/19 02:30 78 24 145/70 (95) 94 02/28/19 02:00 84 24 137/63 (87) 99 02/28/19 02:00 24 Mechanical Ventilator 40 02/28/19 01:32 72 24 100 Mechanical Ventilator 40 02/28/19 01:30 87 24 144/69 (94) 99 02/28/19 01:22 92 25 95 Mechanical Ventilator 40 02/28/19 01:21 92 25 40 40 02/28/19 01:00 24 Mechanical Ventilator 40 02/28/19 01:00 79 24 138/66 (90) 96 02/28/19 00:54 157/64 02/28/19 00:30 79 24 139/63 (88) 96 02/28/19 00:00 79 02/28/19 00:00 24 Mechanical Ventilator 40 02/28/19 00:00 Mechanical Ventilator 02/28/19 00:00 40 02/28/19 00:00 99.5 78 24 133/75 (94) 95 02/27/19 23:30 78 24 138/58 (84) 94 02/27/19 23:00 79 24 128/76 (93) 99 02/27/19 23:00 24 Mechanical Ventilator 40 02/27/19 22:48 79 24 40 40 02/27/19 22:30 80 24 147/60 (89) 95 02/27/19 22:00 24 Mechanical Ventilator 40 02/27/19 22:00 82 24 157/64 (95) 94 02/27/19 21:30 78 24 154/60 (91) 98 02/27/19 21:17 81 24 40 40 02/27/19 21:00 81 24 152/62 (92) 98 02/27/19 21:00 24 Mechanical Ventilator 40 02/27/19 20:59 82 142/57 02/27/19 20:58 142/57 02/27/19 20:58 142/57 02/27/19 20:30 74 24 142/57 (85) 99 02/27/19 20:00 Mechanical Ventilator 02/27/19 20:00 99.1 77 24 153/56 (88) 99 02/27/19 20:00 82 02/27/19 20:00 24 Mechanical Ventilator 40 02/27/19 20:00 40 02/27/19 19:40 76 24 100 Mechanical Ventilator 40 02/27/19 19:30 79 24 155/60 (91) 97 02/27/19 19:28 78 22 40 40 02/27/19 19:28 78 22 97 Mechanical Ventilator 40 02/27/19 19:21 24 Mechanical Ventilator 40 02/27/19 19:00 76 24 151/54 (86) 98 02/27/19 19:00 25 Mechanical Ventilator 40 02/27/19 18:30 7 24 149/60 (89) 98 02/27/19 18:00 74 24 145/55 (85) 98 02/27/19 18:00 25 Mechanical Ventilator 40 02/27/19 17:45 73 24 145/59 (87) 98 02/27/19 17:40 145/59 02/27/19 17:30 74 25 145/59 (87) 98 02/27/19 17:15 75 24 145/59 (87) 98 02/27/19 17:00 75 25 138/61 (86) 98 02/27/19 17:00 24 Mechanical Ventilator 40 02/27/19 17:00 75 24 40 02/27/19 16:58 28 Mechanical Ventilator 40 02/27/19 16:00 70 02/27/19 16:00 Mechanical Ventilator 02/27/19 16:00 98.1 73 21 138/58 (84) 98 02/27/19 16:00 24 Mechanical Ventilator 40 02/27/19 16:00 40 02/27/19 15:00 71 26 143/58 (86) 98 02/27/19 15:00 26 Mechanical Ventilator 40 02/27/19 14:59 71 27 40 02/27/19 14:00 69 24 140/61 (87) 98 02/27/19 14:00 24 Mechanical Ventilator 40 I&O Intake and Output 02/27/19 02/28/19 19:00 07:00 Intake Total 1769.000 ml 715 ml Output Total 2325 ml 1200 ml Balance -556.000 ml -485 ml Free Water 30 ml IV Total 1150.000 ml 169 ml Tube Feeding 504 ml 516 ml Other 115 ml Output Urine Total 2325 ml 1200 ml Stool Total 0 ml Dressing: saturated Cardiovascular: RSR Respiratory: decreased breath sounds Abdomen: soft, present bowel sounds, non-distended Extremities: edema, no cyanosis Laboratory Tests Test 02/28/19 04:30 White Blood Count 5.0 K/UL (4.8-10.8) Red Blood Count 2.91 M/UL (4.70-6.10) L Hemoglobin 8.4 G/DL (14.2-18.0) L Hematocrit 25.8 % (42.0-52.0) L Mean Corpuscular Volume 89 FL (80-99) Mean Corpuscular Hemoglobin 28.8 PG (27.0-31.0) Mean Corpuscular Hemoglobin Concent 32.5 G/DL (32.0-36.0) Red Cell Distribution Width 17.1 % (11.6-14.8) H Platelet Count 115 K/UL (150-450) L Mean Platelet Volume 6.2 FL (6.5-10.1) L Neutrophils (%) (Auto) 84.6 % (45.0-75.0) H Lymphocytes (%) (Auto) 6.1 % (20.0-45.0) L Monocytes (%) (Auto) 8.2 % (1.0-10.0) Eosinophils (%) (Auto) 0.8 % (0.0-3.0) Basophils (%) (Auto) 0.3 % (0.0-2.0) Sodium Level 132 MMOL/L (136-145) L Potassium Level 4.1 MMOL/L (3.5-5.1) Chloride Level 99 MMOL/L (98-107) Carbon Dioxide Level 21 MMOL/L (21-32) Anion Gap 12 mmol/L (5-15) Blood Urea Nitrogen 74 mg/dL (7-18) H Creatinine 3.2 MG/DL (0.55-1.30) H Estimat Glomerular Filtration Rate 20.0 mL/min (>60) Glucose Level 167 MG/DL (74-106) H Calcium Level 8.3 MG/DL (8.5-10.1) L Total Bilirubin 0.4 MG/DL (0.2-1.0) Aspartate Amino Transf (AST/SGOT) 67 U/L (15-37) H Alanine Aminotransferase (ALT/SGPT) 51 U/L (12-78) Alkaline Phosphatase 130 U/L (46-116) H Total Protein 5.5 G/DL (6.4-8.2) L Albumin 2.5 G/DL (3.4-5.0) L Globulin 3.0 g/dL Albumin/Globulin Ratio 0.8 (1.0-2.7) L Plan Problems: (1) Hypoxia Assessment & Plan: Extensive bilateral upper lobe infiltrates likely inflammatory/infectious. Correlate clinically. Tuberculosis is not excludable. Bilateral pleural effusions. Endotracheal tube and nasogastric tube in good position Atherosclerotic vascular disease (2) Respiratory distress Assessment & Plan: intubated on vent support may require trach given failed initial extubation and now difficult to wean (3) Sepsis Assessment & Plan: Sepsis with tachycardia, leukocytosis - resolved, abnormal labs, respiratory distress on vent support via ET tube Cont IV abx CXR noted appreciate ICU team care abnormal lft's US noted will likely remove line soon now that improving will cont to follow with recs trend labs Rx as written PICC placed HD line removed may need trach Moiz Costa Feb 28, 2019 13:57
--- NOTE | 2019-02-28 13:59 | Operative Note - PDOC ---
Operative Note Operative Note Chief Complaint: RESPIRATORY FAILURE Pre-op Diagnosis: respiratory insufficiency, hypoxia, acidosis, renal insufficiency Procedure: left femoral temporary Hemodialysis catheter removal Post-op Diagnosis: same as pre-op Surgeon: Moiz Costa MD Specimen: none Complications: none Condition: stable Estimated Blood Loss: none Drains: none Implant(s) used?: No Indications for Procedure See consult notes and daily progress notes PICC placed no need HD okay to remove line now Description of Procedure patient in supine position sutures removed after dressing removed line removed pressure held for 6 minutes. hemostasis noted dressing applied monitor site Moiz Costa Feb 28, 2019 13:59
--- NOTE | 2019-02-28 14:01 | Cardiac Electrophysiology PN ---
Assessment/Plan Assessment/Plan 1. Non-ST elevation myocardial infarction with peak troponin of more than 10, down to 3.[address]-T wave abnormalities. Continue Lipitor, Imdur and metoprolol Hold off on Cardiac catheterization 2. Hypertension. Metoprolol 100 bid, Isordil 20 q6 and hydralazine 50 q 8 hr 3. Respiratory failure due to Multilobar Pneumonia. Extubated 02/19/19. Reintubated 02/20/19 Being weaned again and if fails, needs Tracheostomy 4. Hyperlipidemia. On Lipitor. 5. Human immunodeficiency virus. On anti-retroviral therapy with undetectable viral load. 6. ARF Cr 3 7. Bleeding from ETT and NG tube. S/P PRBC. Off Aspirin and Lovenox No further bleeding DW RN Subjective Subjective In ICU on the vent and off sedation and on CPAP since 10 am today In SR Objective Last 24 Hour Vital Signs Date Time Temp Pulse Resp B/P (MAP) Pulse Ox O2 Delivery O2 Flow Rate FiO2 02/28/19 13:00 72 18 146/63 (90) 97 02/28/19 13:00 73 23 137/66 (89) 97 02/28/19 12:50 Mechanical Ventilator 02/28/19 12:40 72 25 98 Mechanical Ventilator 40 02/28/19 12:33 72 25 95 Mechanical Ventilator 40 02/28/19 12:33 71 25 02/28/19 12:08 142/63 02/28/19 12:00 Mechanical Ventilator 02/28/19 12:00 40 02/28/19 12:00 97.5 71 22 142/63 (89) 97 02/28/19 11:00 72 18 146/63 (90) 97 02/28/19 10:30 71 20 149/57 (87) 97 02/28/19 10:21 73 23 40 02/28/19 10:20 40 02/28/19 10:15 73 20 139/64 (89) 99 02/28/19 10:00 71 15 139/64 (89) 98 02/28/19 10:00 76 19 134/79 (97) 98 02/28/19 09:45 71 19 139/64 (89) 97 02/28/19 09:30 73 22 138/51 (80) 96 02/28/19 09:15 77 18 134/79 (97) 98 02/28/19 09:01 141/121 02/28/19 09:00 18 Mechanical Ventilator 40 02/28/19 09:00 76 19 134/79 (97) 98 02/28/19 08:47 77 141/121 02/28/19 08:47 77 141/121 02/28/19 08:45 77 16 141/121 (128) 98 02/28/19 08:39 75 32 40 02/28/19 08:30 76 20 141/121 (128) 97 02/28/19 08:30 18 Mechanical Ventilator 40 02/28/19 08:30 76 20 141/121 (128) 97 02/28/19 08:15 78 18 143/68 (93) 98 02/28/19 08:00 40 02/28/19 08:00 Mechanical Ventilator 02/28/19 08:00 18 Mechanical Ventilator 40 02/28/19 08:00 77 17 143/68 (93) 98 02/28/19 07:30 75 19 144/66 (92) 98 02/28/19 07:28 74 02/28/19 07:10 75 33 98 Mechanical Ventilator 40 02/28/19 07:04 76 31 40 02/28/19 07:03 77 29 98 Mechanical Ventilator 40 02/28/19 07:00 97.5 76 18 148/60 (89) 97 02/28/19 07:00 18 Mechanical Ventilator 40 02/28/19 06:00 24 Mechanical Ventilator 40 02/28/19 06:00 75 24 126/61 (82) 96 02/28/19 05:32 152/59 02/28/19 05:32 152/59 02/28/19 05:30 75 24 152/63 (92) 96 02/28/19 05:12 75 30 40 40 02/28/19 05:00 75 24 152/59 (90) 95 02/28/19 05:00 24 Mechanical Ventilator 40 02/28/19 04:30 76 24 144/68 (93) 94 02/28/19 04:00 73 02/28/19 04:00 40 02/28/19 04:00 24 Mechanical Ventilator 40 02/28/19 04:00 99.2 76 21 150/71 (97) 92 02/28/19 04:00 Mechanical Ventilator 02/28/19 03:30 77 24 148/61 (90) 93 02/28/19 03:28 78 24 143/69 (93) 100 02/28/19 03:00 78 24 151/88 (109) 94 02/28/19 03:00 24 Non-Rebreather 40 02/28/19 02:54 88 24 40 40 02/28/19 02:30 78 24 145/70 (95) 94 02/28/19 02:00 84 24 137/63 (87) 99 02/28/19 02:00 24 Mechanical Ventilator 40 02/28/19 01:32 72 24 100 Mechanical Ventilator 40 02/28/19 01:30 87 24 144/69 (94) 99 02/28/19 01:22 92 25 95 Mechanical Ventilator 40 02/28/19 01:21 92 25 40 40 02/28/19 01:00 24 Mechanical Ventilator 40 02/28/19 01:00 79 24 138/66 (90) 96 02/28/19 00:54 157/64 02/28/19 00:30 79 24 139/63 (88) 96 02/28/19 00:00 79 02/28/19 00:00 24 Mechanical Ventilator 40 02/28/19 00:00 Mechanical Ventilator 02/28/19 00:00 40 02/28/19 00:00 99.5 78 24 133/75 (94) 95 02/27/19 23:30 78 24 138/58 (84) 94 02/27/19 23:00 79 24 128/76 (93) 99 02/27/19 23:00 24 Mechanical Ventilator 40 02/27/19 22:48 79 24 40 40 02/27/19 22:30 80 24 147/60 (89) 95 02/27/19 22:00 24 Mechanical Ventilator 40 02/27/19 22:00 82 24 157/64 (95) 94 02/27/19 21:30 78 24 154/60 (91) 98 02/27/19 21:17 81 24 40 40 02/27/19 21:00 81 24 152/62 (92) 98 02/27/19 21:00 24 Mechanical Ventilator 40 02/27/19 20:59 82 142/57 02/27/19 20:58 142/57 02/27/19 20:58 142/57 02/27/19 20:30 74 24 142/57 (85) 99 02/27/19 20:00 Mechanical Ventilator 02/27/19 20:00 99.1 77 24 153/56 (88) 99 02/27/19 20:00 82 02/27/19 20:00 24 Mechanical Ventilator 40 02/27/19 20:00 40 02/27/19 19:40 76 24 100 Mechanical Ventilator 40 02/27/19 19:30 79 24 155/60 (91) 97 02/27/19 19:28 78 22 40 40 02/27/19 19:28 78 22 97 Mechanical Ventilator 40 02/27/19 19:21 24 Mechanical Ventilator 40 02/27/19 19:00 76 24 151/54 (86) 98 02/27/19 19:00 25 Mechanical Ventilator 40 02/27/19 18:30 7 24 149/60 (89) 98 02/27/19 18:00 74 24 145/55 (85) 98 02/27/19 18:00 25 Mechanical Ventilator 40 02/27/19 17:45 73 24 145/59 (87) 98 02/27/19 17:40 145/59 02/27/19 17:30 74 25 145/59 (87) 98 02/27/19 17:15 75 24 145/59 (87) 98 02/27/19 17:00 75 25 138/61 (86) 98 02/27/19 17:00 24 Mechanical Ventilator 40 02/27/19 17:00 75 24 40 02/27/19 16:58 28 Mechanical Ventilator 40 02/27/19 16:00 70 02/27/19 16:00 Mechanical Ventilator 02/27/19 16:00 98.1 73 21 138/58 (84) 98 02/27/19 16:00 24 Mechanical Ventilator 40 02/27/19 16:00 40 02/27/19 15:00 71 26 143/58 (86) 98 02/27/19 15:00 26 Mechanical Ventilator 40 02/27/19 14:59 71 27 40 02/27/19 14:00 69 24 140/61 (87) 98 02/27/19 14:00 24 Mechanical Ventilator 40 Intake and Output 02/27/19 02/28/19 19:00 07:00 Intake Total 1769.000 ml 715 ml Output Total 2325 ml 1200 ml Balance -556.000 ml -485 ml Free Water 30 ml IV Total 1150.000 ml 169 ml Tube Feeding 504 ml 516 ml Other 115 ml Output Urine Total 2325 ml 1200 ml Stool Total 0 ml Laboratory Tests Test 02/28/19 04:30 White Blood Count 5.0 K/UL (4.8-10.8) Red Blood Count 2.91 M/UL (4.70-6.10) L Hemoglobin 8.4 G/DL (14.2-18.0) L Hematocrit 25.8 % (42.0-52.0) L Mean Corpuscular Volume 89 FL (80-99) Mean Corpuscular Hemoglobin 28.8 PG (27.0-31.0) Mean Corpuscular Hemoglobin Concent 32.5 G/DL (32.0-36.0) Red Cell Distribution Width 17.1 % (11.6-14.8) H Platelet Count 115 K/UL (150-450) L Mean Platelet Volume 6.2 FL (6.5-10.1) L Neutrophils (%) (Auto) 84.6 % (45.0-75.0) H Lymphocytes (%) (Auto) 6.1 % (20.0-45.0) L Monocytes (%) (Auto) 8.2 % (1.0-10.0) Eosinophils (%) (Auto) 0.8 % (0.0-3.0) Basophils (%) (Auto) 0.3 % (0.0-2.0) Sodium Level 132 MMOL/L (136-145) L Potassium Level 4.1 MMOL/L (3.5-5.1) Chloride Level 99 MMOL/L (98-107) Carbon Dioxide Level 21 MMOL/L (21-32) Anion Gap 12 mmol/L (5-15) Blood Urea Nitrogen 74 mg/dL (7-18) H Creatinine 3.2 MG/DL (0.55-1.30) H Estimat Glomerular Filtration Rate 20.0 mL/min (>60) Glucose Level 167 MG/DL (74-106) H Calcium Level 8.3 MG/DL (8.5-10.1) L Total Bilirubin 0.4 MG/DL (0.2-1.0) Aspartate Amino Transf (AST/SGOT) 67 U/L (15-37) H Alanine Aminotransferase (ALT/SGPT) 51 U/L (12-78) Alkaline Phosphatase 130 U/L (46-116) H Total Protein 5.5 G/DL (6.4-8.2) L Albumin 2.5 G/DL (3.4-5.0) L Globulin 3.0 g/dL Albumin/Globulin Ratio 0.8 (1.0-2.7) L Objective HEAD AND NECK: No JVD.Orally intubated with NG tube LUNGS: Coarse rhonchi. CARDIOVASCULAR: Regular S1 and S2 with no gallop or murmur. ABDOMEN: Soft. EXTREMITIES: 1 plus pitting edema. Murray Francois MD Feb 28, 2019 14:01
--- NOTE | 2019-02-28 14:07 | Diagnostic Imaging Report ---
APPROVED REPORT CPT Code: 85087 Present Symptoms Comments: LEFT LEG PAIN. LEFT LEG: Venous imaging reveals a patent deep venous system. There is no evidence of thrombus within the femoral, popliteal or tibial segments. The greater saphenous vein is also within normal limits. Doppler indicates normal spontaneous flow within these segments.
--- NOTE | 2019-02-28 15:04 | NUR ---
NURSE NOTES: Cleaned and repositioned pt. Placed pt back to AC mode by RT. Feeding turned back on. Will continue to monitor.
[2019-02-28] MEDS: fentaNYL Citrate 2500mcg in NS 250ml IV SCH (16:08)
--- NOTE | 2019-02-28 16:08 | NUR ---
NURSE NOTES: Restarted Fentanyl drip at 10mcg/hr for sedation since pt is back to AC mode.
[2019-02-28] MEDS: Cefepime HCl 1 GM in D5W 55 ML IVPB SCH (16:34)
--- NOTE | 2019-02-28 17:00 | NUR ---
NURSE NOTES: Turned and repositioned pt. Titrating up Fentanyl drip since pt is awake (0) and drowsy (-1). Pt gets impulsive at times and continued bilateral soft wrist restraints.
--- NOTE | 2019-02-28 17:26 | Hematology/Onc Progress Note ---
Assessment/Plan Assessment/Plan ASSESSMENT AND RECOMMENDATIONS # Anemia of chronic disease due to underlying chronic medical issues, multifactorial --> DID Have bleeding on admission --> Anemia workup has been reviewed. Ferritin 182 --> No evidence of hemolysis is noted, peripheral smear has been reviewed. --> Hgb goal >7. Transfuse prn. --> Epogen or iron at this time is not particularly indicated --> Medications have been reviewed --> Stool OB negative --> Blood tx: 1 unit on 02/10/19, --> off ASA, off heparin, off lovenox --> Hgb trend: 7.6-->8.2-->9.4-->8.4-->8.2 -->8.9-->10.3->7.9-->8.1->7.8-->8.7-- >8.4 # Thrombocytopenia - potential causes multifactorial, likely related to HIV status --> Hep panel pending and HIV confirmed positive --> US abd tdoes not show cirrhosis/hsm --> Peripheral smear ordered to evaluate for blasts /schistocytes does not show any --> abx and other meds have been reviewed --> ok for ppx if plt >50k w/ either heparin or lovenox --> Transfuse if Plt < 20k and fever, or if Plt < 10k without fever --> Plt trend: 153-->257-->224-->205-->253-->310-->201->177-->115 --> WILLIAM screen negative # Multilobar pneumonia in patient with HIV. Recs per ID. --> Broad sp atbx started. Continue Zosyn, Vancomycin and Azithromycin --> Droplet precaution # Hypoxemic respiratory failure. Pulm is following, appreciate recs. --> Bipap as needed, transition to O2 via NC when able --> Due to pneumonia, on abx --> now intubated 02/20 --> may need trach if fails breathing trial # Chest pain. 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 --> Trend troponin x3 --> NGT prn # HIV. --> Continue HARRT --> VL is undetectable per patient report. # HTN --> Resume home medication # DVT and GI ppx The time the note is entered does not reflect the time the patient was examined. I greatly appreciate the consultation. Subjective Cardiovascular: Denies: no symptoms, chest pain, edema, irregular heart rate, lightheadedness, palpitations, syncope, other Respiratory: Denies: no symptoms, cough, shortness of breath, SOB with excertion, SOB at rest, sputum, wheezing, other Gastrointestinal/Abdominal: Denies: no symptoms, abdomen distended, abdominal pain, black stools, tarry stools, blood in stool, constipated, diarrhea, difficulty swallowing, nausea, poor appetite, poor fluid intake, rectal bleeding , vomiting, other Genitourinary: Denies: no symptoms, burning, discharge, frequency, flank pain, hematuria, incontinence, pain, urgency, other Neurologic/Psychiatric: Denies: no symptoms, anxiety, depressed, emotional problems, headache, numbness, paresthesia, pre-existing deficit, seizure, tingling, tremors, weakness, other Endocrine: Denies: no symptoms, excessive sweating, flushing, intolerance to cold, intolerance to heat, increased hunger, increased thirst, increased urine, unexplained weight gain, unexplained weight loss, other Hematologic/Lymphatic: Denies: no symptoms, anemia, easy bleeding, easy bruising, adenopathy, other Allergies: Coded Allergies: No Known Allergies (Unverified , 02/05/13) Subjective Subjective 02/11: Hgb yesterday was 7.6, s/p 1 unit prbc. Current hgb at 8.2. Pt attempted to pull out tubes per nursing team, soft restraints applied. 02/13: Pt in ICU and intubated. Pt currently sedated. Current hgb 9.4. 02/14: Pt remains in icu, sedated. Hgb stable. 02/15: Remains in icu, lethargic. No acute events. Hgb stable. 02/16: Remains in icu. CXR today shows worsening CHF/pulmonary edema. Pt wake and sedation decrease for weaning. 02/18: Remains in icu. Pt on vent. CXR today shows pulmonary edema, persistent small left pleural effusion. 02/19: Remains in the icu, now extubated, seen by pulm, labs reviewed 02/20: Remains in ICU, Pt intubated, CXR today shows Congestive heart failure with interval worsening 02/21: reintubated, tolerating vent well, seen by pulm/cc 02/23: pt remains on fently gtt, prn ativan, currenlty intubated on vent, no further bleeding, d/w RN> 02/24:failed weaning, fentanyl drip decreased. 02/25:pt seen in am,sedated. 02/27: remains intubated, may need trach, nobleeding today 02/28: tolerated cpap, now back on vent, no bleeding off asa/lovenox Objective Objective Current Medications Medications (Trade) Dose Ordered Sig/Marquis Route PRN Reason Start Time Stop Time Status Last Admin Dose Admin Acetaminophen (Tylenol) 650 mg Q4H PRN ORAL Mild Pain (Pain Scale 1-3) 02/07/19 11:15 03/08/19 17:29 02/22/19 14:37 Acetaminophen/ Butalbital/ Caffeine (Fioricet) 1 tab Q8H PRN ORAL For Headache 02/08/19 17:15 03/10/19 17:14 Albuterol/ Ipratropium (Albuterol/ Ipratropium) 3 ml Q4H PRN HHN Shortness of Breath 02/26/19 12:30 03/03/19 12:29 Albuterol/ Ipratropium (Albuterol/ Ipratropium) 3 ml Q6HRT HHN 02/26/19 13:00 03/03/19 12:59 02/28/19 12:33 Amlodipine Besylate (Norvasc) 10 mg DAILY NG 02/15/19 09:00 03/14/19 15:59 02/28/19 08:47 Artificial Tears (Lacri-Lube) 1 applic AC+HS BOTH EYES 02/18/19 06:30 03/20/19 06:29 02/28/19 16:34 Bisacodyl (Dulcolax) 5 mg DAILYPRN PRN ORAL Constipation 02/08/19 17:15 03/10/19 17:14 02/25/19 12:45 Cefepime HCl 1 gm/ Dextrose 55 ml @ 110 mls/hr Q24H IVPB 02/27/19 16:00 03/06/19 15:59 02/28/19 16:34 Chlorhexidine Gluconate (Jessy-Hex 2%) 1 applic DAILY@2000 TOPIC 02/25/19 20:00 03/27/19 19:59 02/27/19 19:20 Clindamycin HCl/ Dextrose 50 ml @ 100 mls/hr Q8HR IV 02/27/19 22:00 03/06/19 21:59 02/28/19 14:19 Clonidine HCl (Catapres Tab) 0.1 mg EVERY 12 HOURS NG 02/25/19 21:00 03/19/19 13:59 02/28/19 09:01 Dextrose (Dextrose 50%) 25 ml Q30M PRN IV Hypoglycemia 02/26/19 07:30 03/28/19 07:29 Dextrose (Dextrose 50%) 50 ml Q30M PRN IV Hypoglycemia 02/26/19 07:30 03/28/19 07:29 Docusate Sodium (Colace) 100 mg TID GT 02/12/19 18:00 03/12/19 08:59 02/28/19 12:07 Fentanyl Citrate 2500 mcg/Sodium Chloride 250 ml @ 0 mls/hr Q24H IV 02/23/19 20:30 03/02/19 20:29 02/28/19 16:08 Fluconazole/ Sodium Chloride 100 ml @ 100 mls/hr Q24H IV 02/26/19 18:00 03/05/19 17:59 02/27/19 17:41 Furosemide (Lasix) 40 mg DAILY IV 03/01/19 09:00 03/31/19 08:59 Guaifenesin (Mucinex ER) 600 mg TWICE A DAY ORAL 02/07/19 18:00 03/09/19 08:59 02/28/19 08:46 Heparin Sodium (Porcine) (Heparin 5000 units/ml) 5,000 units EVERY 12 HOURS SUBQ 02/26/19 21:00 03/28/19 20:59 02/27/19 21:00 Hydralazine HCl (Apresoline) 10 mg Q4H PRN IV bp over 165 syst 02/17/19 10:15 03/19/19 10:14 02/19/19 14:45 Hydralazine HCl (Apresoline) 50 mg Q8HR NG 02/22/19 14:00 03/21/19 21:59 02/28/19 14:19 Insulin Aspart (NovoLOG) EVERY 6 HOURS SUBQ 02/26/19 12:00 03/28/19 11:59 02/28/19 12:08 Isosorbide Dinitrate (Isordil) 20 mg Q6HR NG 02/22/19 12:00 03/15/19 12:59 02/28/19 12:08 Lorazepam (Ativan 2mg/ml 1ml) 2 mg Q2H PRN IV For Anxiety 02/27/19 13:48 03/06/19 13:47 02/28/19 05:34 Metoclopramide HCl (Reglan) 5 mg Q8H IVP 02/26/19 09:00 03/28/19 08:59 02/28/19 16:34 Metolazone (Zaroxolyn) 10 mg DAILY NG 02/19/19 10:00 03/21/19 09:59 02/28/19 08:46 Metoprolol Tartrate (Lopressor) 100 mg Q12HR ORAL 02/22/19 21:00 03/08/19 20:59 02/28/19 08:47 Midazolam HCl (Versed 2mg/2ml vial) 1 mg Q2H PRN IVP Agitation 02/13/19 08:45 03/15/19 08:44 02/27/19 11:05 Neomycin/ Polymyxin/ Dexamethasone (Maxitrol Opth Oint) 1 applic BEDTIME BOTH EYES 02/18/19 21:00 03/20/19 20:59 02/27/19 21:01 Nitroglycerin (Ntg) 0.4 mg Q5M PRN SL Prn Chest Pain 02/07/19 11:00 03/08/19 17:29 02/08/19 07:42 Ondansetron HCl (Zofran) 4 mg Q6H PRN IVP Nausea & Vomiting 02/07/19 11:15 03/08/19 11:14 02/09/19 00:58 Pantoprazole (Protonix) 40 mg DAILY IVP 02/26/19 09:00 03/24/19 20:59 02/28/19 08:46 Patient Own Medication (Patient's Own Med) 1 ea BID ORAL 02/07/19 18:00 03/09/19 17:59 02/28/19 08:48 Patient Own Medication (Patient's Own Med) 1 ea Q48H ORAL 02/18/19 09:00 03/20/19 08:59 02/28/19 08:48 Patient Own Medication (Patient's Own Med) 2 ea DAILY ORAL 02/08/19 09:00 03/10/19 08:59 02/28/19 08:48 Polyethylene Glycol (Miralax) 17 gm BEDTIME ORAL 02/08/19 21:00 03/10/19 20:59 02/25/19 20:56 Primaquine Phosphate (Primaquine) 26.3 mg DAILY ORAL 02/28/19 09:00 03/30/19 08:59 02/28/19 08:47 Sennosides (Senokot) 8.6 mg DAILY ORAL 02/13/19 12:00 03/15/19 11:59 02/28/19 08:46 Last 24 Hour Vital Signs Date Time Temp Pulse Resp B/P (MAP) Pulse Ox O2 Delivery O2 Flow Rate FiO2 02/28/19 17:03 72 29 40 02/28/19 17:00 72 21 151/64 (93) 98 02/28/19 16:45 72 21 149/62 (91) 99 02/28/19 16:30 72 29 149/62 (91) 98 02/28/19 16:15 71 20 147/67 (93) 98 02/28/19 16:08 20 Mechanical Ventilator 40 02/28/19 16:00 97.5 70 21 147/67 (93) 98 02/28/19 16:00 Mechanical Ventilator 02/28/19 15:00 70 23 138/58 (84) 98 02/28/19 15:00 40 02/28/19 14:51 71 26 40 02/28/19 14:19 138/63 02/28/19 14:00 72 24 138/63 (88) 97 02/28/19 13:00 72 18 146/63 (90) 97 02/28/19 13:00 73 23 137/66 (89) 97 02/28/19 12:50 Mechanical Ventilator 02/28/19 12:40 72 25 98 Mechanical Ventilator 40 02/28/19 12:33 72 25 95 Mechanical Ventilator 40 02/28/19 12:33 71 25 02/28/19 12:08 142/63 02/28/19 12:00 Mechanical Ventilator 02/28/19 12:00 72 02/28/19 12:00 40 02/28/19 12:00 97.5 71 22 142/63 (89) 97 02/28/19 11:00 72 18 146/63 (90) 97 02/28/19 10:30 71 20 149/57 (87) 97 02/28/19 10:21 73 23 40 02/28/19 10:20 40 02/28/19 10:15 73 20 139/64 (89) 99 02/28/19 10:00 71 15 139/64 (89) 98 02/28/19 10:00 76 19 134/79 (97) 98 02/28/19 09:45 71 19 139/64 (89) 97 02/28/19 09:30 73 22 138/51 (80) 96 02/28/19 09:15 77 18 134/79 (97) 98 02/28/19 09:01 141/121 02/28/19 09:00 18 Mechanical Ventilator 40 02/28/19 09:00 76 19 134/79 (97) 98 02/28/19 08:47 77 141/121 02/28/19 08:47 77 141/121 02/28/19 08:45 77 16 141/121 (128) 98 02/28/19 08:39 75 32 40 02/28/19 08:30 76 20 141/121 (128) 97 02/28/19 08:30 18 Mechanical Ventilator 40 02/28/19 08:30 76 20 141/121 (128) 97 02/28/19 08:15 78 18 143/68 (93) 98 02/28/19 08:00 40 02/28/19 08:00 Mechanical Ventilator 02/28/19 08:00 18 Mechanical Ventilator 40 02/28/19 08:00 77 17 143/68 (93) 98 02/28/19 07:30 75 19 144/66 (92) 98 02/28/19 07:28 74 02/28/19 07:10 75 33 98 Mechanical Ventilator 40 02/28/19 07:04 76 31 40 02/28/19 07:03 77 29 98 Mechanical Ventilator 40 02/28/19 07:00 97.5 76 18 148/60 (89) 97 02/28/19 07:00 18 Mechanical Ventilator 40 02/28/19 06:00 24 Mechanical Ventilator 40 02/28/19 06:00 75 24 126/61 (82) 96 02/28/19 05:32 152/59 02/28/19 05:32 152/59 02/28/19 05:30 75 24 152/63 (92) 96 02/28/19 05:12 75 30 40 40 02/28/19 05:00 75 24 152/59 (90) 95 02/28/19 05:00 24 Mechanical Ventilator 40 02/28/19 04:30 76 24 144/68 (93) 94 02/28/19 04:00 73 02/28/19 04:00 40 02/28/19 04:00 24 Mechanical Ventilator 40 02/28/19 04:00 99.2 76 21 150/71 (97) 92 02/28/19 04:00 Mechanical Ventilator 02/28/19 03:30 77 24 148/61 (90) 93 02/28/19 03:28 78 24 143/69 (93) 100 02/28/19 03:00 78 24 151/88 (109) 94 02/28/19 03:00 24 Non-Rebreather 40 02/28/19 02:54 88 24 40 40 02/28/19 02:30 78 24 145/70 (95) 94 02/28/19 02:00 84 24 137/63 (87) 99 02/28/19 02:00 24 Mechanical Ventilator 40 02/28/19 01:32 72 24 100 Mechanical Ventilator 40 02/28/19 01:30 87 24 144/69 (94) 99 02/28/19 01:22 92 25 95 Mechanical Ventilator 40 02/28/19 01:21 92 25 40 40 02/28/19 01:00 24 Mechanical Ventilator 40 02/28/19 01:00 79 24 138/66 (90) 96 02/28/19 00:54 157/64 02/28/19 00:30 79 24 139/63 (88) 96 02/28/19 00:00 79 02/28/19 00:00 24 Mechanical Ventilator 40 02/28/19 00:00 Mechanical Ventilator 02/28/19 00:00 40 02/28/19 00:00 99.5 78 24 133/75 (94) 95 02/27/19 23:30 78 24 138/58 (84) 94 02/27/19 23:00 79 24 128/76 (93) 99 02/27/19 23:00 24 Mechanical Ventilator 40 02/27/19 22:48 79 24 40 40 02/27/19 22:30 80 24 147/60 (89) 95 02/27/19 22:00 24 Mechanical Ventilator 40 02/27/19 22:00 82 24 157/64 (95) 94 02/27/19 21:30 78 24 154/60 (91) 98 02/27/19 21:17 81 24 40 40 02/27/19 21:00 81 24 152/62 (92) 98 02/27/19 21:00 24 Mechanical Ventilator 40 02/27/19 20:59 82 142/57 02/27/19 20:58 142/57 02/27/19 20:58 142/57 02/27/19 20:30 74 24 142/57 (85) 99 02/27/19 20:00 Mechanical Ventilator 02/27/19 20:00 99.1 77 24 153/56 (88) 99 02/27/19 20:00 82 02/27/19 20:00 24 Mechanical Ventilator 40 02/27/19 20:00 40 02/27/19 19:40 76 24 100 Mechanical Ventilator 40 02/27/19 19:30 79 24 155/60 (91) 97 02/27/19 19:28 78 22 40 40 02/27/19 19:28 78 22 97 Mechanical Ventilator 40 02/27/19 19:21 24 Mechanical Ventilator 40 02/27/19 19:00 76 24 151/54 (86) 98 02/27/19 19:00 25 Mechanical Ventilator 40 02/27/19 18:30 7 24 149/60 (89) 98 02/27/19 18:00 74 24 145/55 (85) 98 02/27/19 18:00 25 Mechanical Ventilator 40 02/27/19 17:45 73 24 145/59 (87) 98 02/27/19 17:40 145/59 02/27/19 17:30 74 25 145/59 (87) 98 02/27/19 17:15 75 24 145/59 (87) 98 02/27/19 17:00 75 25 138/61 (86) 98 02/27/19 17:00 24 Mechanical Ventilator 40 02/27/19 17:00 75 24 40 02/27/19 16:58 28 Mechanical Ventilator 40 02/27/19 16:00 70 02/27/19 16:00 Mechanical Ventilator 02/27/19 16:00 98.1 73 21 138/58 (84) 98 02/27/19 16:00 24 Mechanical Ventilator 40 02/27/19 16:00 40 02/27/19 15:00 71 26 143/58 (86) 98 02/27/19 15:00 26 Mechanical Ventilator 40 02/27/19 14:59 71 27 40 02/27/19 14:00 69 24 140/61 (87) 98 02/27/19 14:00 24 Mechanical Ventilator 40 02/27/19 13:46 141/57 02/27/19 13:17 69 27 40 02/27/19 13:06 Mechanical Ventilator 40 02/27/19 13:06 Mechanical Ventilator 40 02/27/19 13:00 24 Mechanical Ventilator 40 02/27/19 13:00 68 25 141/57 (85) 98 02/27/19 12:09 140/74 02/27/19 12:00 98.6 67 28 140/74 (96) 99 02/27/19 12:00 40 02/27/19 12:00 25 Mechanical Ventilator 40 02/27/19 12:00 68 02/27/19 12:00 Mechanical Ventilator 02/27/19 11:00 71 29 40 02/27/19 11:00 69 28 125/77 (93) 98 02/27/19 11:00 24 Mechanical Ventilator 40 02/27/19 10:00 73 28 116/60 (78) 98 02/27/19 09:57 24 Mechanical Ventilator 40 02/27/19 09:05 77 30 40 02/27/19 09:00 77 28 151/76 (101) 97 02/27/19 09:00 24 Mechanical Ventilator 40 02/27/19 08:37 138/69 02/27/19 08:37 75 138/69 02/27/19 08:36 75 138/69 02/27/19 08:00 24 Mechanical Ventilator 40 02/27/19 08:00 77 02/27/19 08:00 40 02/27/19 08:00 98.5 75 28 141/64 (89) 97 02/27/19 07:54 Mechanical Ventilator 02/27/19 07:30 77 17 154/79 (104) 97 02/27/19 07:00 75 28 99 Mechanical Ventilator 40 02/27/19 07:00 24 Mechanical Ventilator 40 02/27/19 07:00 79 24 129/79 (96) 99 02/27/19 06:58 76 30 40 40 02/27/19 06:49 76 29 97 Mechanical Ventilator 40 02/27/19 06:30 73 24 150/64 (92) 98 02/27/19 06:00 24 Mechanical Ventilator 40 02/27/19 06:00 74 12 153/63 (93) 99 02/27/19 05:33 137/62 02/27/19 05:32 137/62 02/27/19 05:30 74 12 126/73 (90) 99 02/27/19 05:20 74 26 40 40 02/27/19 05:00 73 16 137/62 (87) 98 02/27/19 05:00 24 Mechanical Ventilator 40 02/27/19 04:30 73 13 136/71 (92) 99 02/27/19 04:00 71 02/27/19 04:00 24 Mechanical Ventilator 40 02/27/19 04:00 40 02/27/19 04:00 98.3 72 20 123/80 (94) 98 02/27/19 04:00 Mechanical Ventilator 02/27/19 03:30 72 24 133/87 (102) 100 02/27/19 03:29 73 31 40 40 02/27/19 03:00 61 24 121/61 (81) 99 02/27/19 03:00 24 Mechanical Ventilator 40 02/27/19 02:30 72 24 156/86 (109) 100 02/27/19 02:00 24 Mechanical Ventilator 40 02/27/19 02:00 71 13 136/63 (87) 100 02/27/19 01:48 74 24 100 Mechanical Ventilator 40 02/27/19 01:30 70 19 124/72 (89) 100 02/27/19 01:29 69 28 100 Mechanical Ventilator 40 02/27/19 01:29 70 29 40 40 02/27/19 01:00 24 Mechanical Ventilator 40 02/27/19 01:00 71 12 129/75 (93) 96 02/27/19 00:30 71 19 126/72 (90) 99 02/27/19 00:06 131/65 02/27/19 00:00 Mechanical Ventilator 02/27/19 00:00 24 Mechanical Ventilator 40 02/27/19 00:00 98.9 67 22 131/65 (87) 100 02/27/19 00:00 40 02/27/19 00:00 65 02/26/19 23:30 67 23 126/92 (103) 98 02/26/19 23:00 62 20 122/63 (82) 100 02/26/19 23:00 24 Mechanical Ventilator 40 02/26/19 22:46 62 26 40 40 02/26/19 22:30 62 21 122/64 (83) 99 02/26/19 22:00 24 Mechanical Ventilator 40 02/26/19 22:00 61 24 119/61 (80) 99 02/26/19 21:30 63 19 120/61 (80) 99 02/26/19 21:08 63 24 40 40 02/26/19 21:05 24 Mechanical Ventilator 40 02/26/19 21:04 24 Mechanical Ventilator 40 02/26/19 21:04 130/60 02/26/19 21:00 63 22 130/60 (83) 99 02/26/19 21:00 24 Mechanical Ventilator 40 02/26/19 20:30 70 140/75 02/26/19 20:30 63 20 140/75 (96) 99 02/26/19 20:29 140/75 02/26/19 20:00 40 02/26/19 20:00 99.3 65 21 120/60 (80) 100 02/26/19 20:00 24 Mechanical Ventilator 40 02/26/19 20:00 63 02/26/19 20:00 Mechanical Ventilator 02/26/19 19:30 67 21 121/65 (83) 100 02/26/19 19:10 70 24 100 Mechanical Ventilator 40 02/26/19 19:00 70 24 137/63 (87) 100 02/26/19 19:00 24 Mechanical Ventilator 40 02/26/19 19:00 71 24 100 Mechanical Ventilator 40 02/26/19 19:00 71 24 40 40 02/26/19 18:00 24 Mechanical Ventilator 40 02/26/19 18:00 72 24 131/66 (87) 100 02/26/19 17:41 24 Mechanical Ventilator 40 02/26/19 17:41 132/60 Intake and Output 02/27/19 02/28/19 19:00 07:00 Intake Total 1769.000 ml 715 ml Output Total 2325 ml 1200 ml Balance -556.000 ml -485 ml Free Water 30 ml IV Total 1150.000 ml 169 ml Tube Feeding 504 ml 516 ml Other 115 ml Output Urine Total 2325 ml 1200 ml Stool Total 0 ml Labs Test 02/26/19 04:22 02/26/19 12:40 02/26/19 14:42 02/27/19 04:30 White Blood Count 5.9 K/UL (4.8-10.8) 7.2 K/UL (4.8-10.8) Red Blood Count 3.06 M/UL (4.70-6.10) 3.06 M/UL (4.70-6.10) Hemoglobin 8.7 G/DL (14.2-18.0) 8.7 G/DL (14.2-18.0) Hematocrit 27.1 % (42.0-52.0) 27.0 % (42.0-52.0) Mean Corpuscular Volume 89 FL (80-99) 88 FL (80-99) Mean Corpuscular Hemoglobin 28.6 PG (27.0-31.0) 28.6 PG (27.0-31.0) Mean Corpuscular Hemoglobin Concent 32.2 G/DL (32.0-36.0) 32.4 G/DL (32.0-36.0) Red Cell Distribution Width 16.7 % (11.6-14.8) 17.0 % (11.6-14.8) Platelet Count 180 K/UL (150-450) 177 K/UL (150-450) Mean Platelet Volume 6.3 FL (6.5-10.1) 6.8 FL (6.5-10.1) Neutrophils (%) (Auto) % (45.0-75.0) 76.8 % (45.0-75.0) Lymphocytes (%) (Auto) % (20.0-45.0) 10.7 % (20.0-45.0) Monocytes (%) (Auto) % (1.0-10.0) 11.0 % (1.0-10.0) Eosinophils (%) (Auto) % (0.0-3.0) 1.2 % (0.0-3.0) Basophils (%) (Auto) % (0.0-2.0) 0.4 % (0.0-2.0) Sodium Level 129 MMOL/L (136-145) 134 MMOL/L (136-145) Potassium Level 5.5 MMOL/L (3.5-5.1) 5.1 MMOL/L (3.5-5.1) Chloride Level 97 MMOL/L (98-107) 100 MMOL/L (98-107) Carbon Dioxide Level 22 MMOL/L (21-32) 21 MMOL/L (21-32) Anion Gap 10 mmol/L (5-15) 13 mmol/L (5-15) Blood Urea Nitrogen 72 mg/dL (7-18) 73 mg/dL (7-18) Creatinine 3.0 MG/DL (0.55-1.30) 3.3 MG/DL (0.55-1.30) Estimat Glomerular Filtration Rate 21.5 mL/min (>60) 19.3 mL/min (>60) Glucose Level 93 MG/DL (74-106) 151 MG/DL (74-106) Calcium Level 8.1 MG/DL (8.5-10.1) 8.2 MG/DL (8.5-10.1) Phosphorus Level 5.5 MG/DL (2.5-4.9) Magnesium Level 2.3 MG/DL (1.8-2.4) Total Bilirubin 0.4 MG/DL (0.2-1.0) 0.3 MG/DL (0.2-1.0) Aspartate Amino Transf (AST/SGOT) 64 U/L (15-37) 63 U/L (15-37) Alanine Aminotransferase (ALT/SGPT) 54 U/L (12-78) 54 U/L (12-78) Alkaline Phosphatase 108 U/L (46-116) 113 U/L (46-116) Total Protein 5.8 G/DL (6.4-8.2) 5.8 G/DL (6.4-8.2) Albumin 2.6 G/DL (3.4-5.0) 2.4 G/DL (3.4-5.0) Globulin 3.2 g/dL 3.4 g/dL Albumin/Globulin Ratio 0.8 (1.0-2.7) 0.7 (1.0-2.7) Arterial Blood pH 7.374 (7.350-7.450) Arterial Blood Partial Pressure CO2 34.7 mmHg (35.0-45.0) Arterial Blood Partial Pressure O2 95.3 mmHg (75.0-100.0) Arterial Blood HCO3 19.8 mmol/L (22.0-26.0) Arterial Blood Oxygen Saturation 96.6 % (95-100) Arterial Blood Base Excess -4.9 (-2-2) Benny Test Positive Stool Occult Blood Positive (NEGATIVE) Test 02/28/19 04:30 White Blood Count 5.0 K/UL (4.8-10.8) Red Blood Count 2.91 M/UL (4.70-6.10) Hemoglobin 8.4 G/DL (14.2-18.0) Hematocrit 25.8 % (42.0-52.0) Mean Corpuscular Volume 89 FL (80-99) Mean Corpuscular Hemoglobin 28.8 PG (27.0-31.0) Mean Corpuscular Hemoglobin Concent 32.5 G/DL (32.0-36.0) Red Cell Distribution Width 17.1 % (11.6-14.8) Platelet Count 115 K/UL (150-450) Mean Platelet Volume 6.2 FL (6.5-10.1) Neutrophils (%) (Auto) 84.6 % (45.0-75.0) Lymphocytes (%) (Auto) 6.1 % (20.0-45.0) Monocytes (%) (Auto) 8.2 % (1.0-10.0) Eosinophils (%) (Auto) 0.8 % (0.0-3.0) Basophils (%) (Auto) 0.3 % (0.0-2.0) Sodium Level 132 MMOL/L (136-145) Potassium Level 4.1 MMOL/L (3.5-5.1) Chloride Level 99 MMOL/L (98-107) Carbon Dioxide Level 21 MMOL/L (21-32) Anion Gap 12 mmol/L (5-15) Blood Urea Nitrogen 74 mg/dL (7-18) Creatinine 3.2 MG/DL (0.55-1.30) Estimat Glomerular Filtration Rate 20.0 mL/min (>60) Glucose Level 167 MG/DL (74-106) Calcium Level 8.3 MG/DL (8.5-10.1) Total Bilirubin 0.4 MG/DL (0.2-1.0) Aspartate Amino Transf (AST/SGOT) 67 U/L (15-37) Alanine Aminotransferase (ALT/SGPT) 51 U/L (12-78) Alkaline Phosphatase 130 U/L (46-116) Total Protein 5.5 G/DL (6.4-8.2) Albumin 2.5 G/DL (3.4-5.0) Globulin 3.0 g/dL Albumin/Globulin Ratio 0.8 (1.0-2.7) Height (Feet): 6 Height (Inches): 0.00 Weight (Pounds): 260 Objective PHYSICAL EXAMINATION: GENERAL: NAD VITAL SIGNS: Have been reviewed. HEAD AND NECK: Shows no JVD. NG+ vent/TRACH+ LUNGS: Coarse rhonchi. CARDIOVASCULAR: Shows regular S1 and S2 with no gallop or murmur. ABDOMEN: Soft. EXTREMITIES: No pitting edema. Chan Hernandez MD Feb 28, 2019 17:26
--- NOTE | 2019-02-28 19:03 | General Progress Note ---
Assessment/Plan Problem List: (1) ISH (acute kidney injury) ICD Codes: N17.9 - Acute kidney failure, unspecified SNOMED: 30876917 (2) Uncontrolled type 2 diabetes mellitus with chronic kidney disease ICD Codes: E11.22 - Type 2 diabetes mellitus with diabetic chronic kidney disease; E11.65 - Type 2 diabetes mellitus with hyperglycemia SNOMED: 88573720, 449186494, 732213084 (3) HIV disease ICD Codes: B20 - Human immunodeficiency virus [HIV] disease SNOMED: 11744343 (4) Respiratory distress ICD Codes: R06.03 - Acute respiratory distress SNOMED: 750559791 Status: stable Assessment/Plan: - continue Novolog sliding scale every 6 hours - no need for basal insulin Subjective ROS Limited/Unobtainable: Yes Allergies: Coded Allergies: No Known Allergies (Unverified , 02/05/13) Subjective events noted remained intubated in ICU glucose values are stable Item Value Date Time Bedside Blood Glucose 169 mg/dl H 02/28/19 1818 Bedside Blood Glucose 201 mg/dl H 02/28/19 1208 Bedside Blood Glucose 182 mg/dl H 02/28/19 0600 Bedside Blood Glucose 166 mg/dl H 02/28/19 0055 Objective Last 24 Hour Vital Signs Date Time Temp Pulse Resp B/P (MAP) Pulse Ox O2 Delivery O2 Flow Rate FiO2 02/28/19 18:30 75 22 142/59 (86) 98 02/28/19 18:15 74 21 145/59 (87) 98 02/28/19 18:04 147/52 02/28/19 18:00 97.6 78 23 164/63 (96) 99 02/28/19 18:00 27 Mechanical Ventilator 40 02/28/19 17:30 74 21 156/59 (91) 98 02/28/19 17:03 72 29 40 02/28/19 17:00 20 Mechanical Ventilator 40 02/28/19 17:00 72 21 151/64 (93) 98 02/28/19 16:45 72 21 149/62 (91) 99 02/28/19 16:30 72 29 149/62 (91) 98 02/28/19 16:15 71 20 147/67 (93) 98 02/28/19 16:08 20 Mechanical Ventilator 40 02/28/19 16:00 97.5 70 21 147/67 (93) 98 02/28/19 16:00 Mechanical Ventilator 02/28/19 15:43 69 02/28/19 15:00 70 23 138/58 (84) 98 02/28/19 15:00 40 02/28/19 14:51 71 26 40 02/28/19 14:19 138/63 02/28/19 14:00 72 24 138/63 (88) 97 02/28/19 13:00 72 18 146/63 (90) 97 02/28/19 13:00 73 23 137/66 (89) 97 02/28/19 12:50 Mechanical Ventilator 02/28/19 12:40 72 25 98 Mechanical Ventilator 40 02/28/19 12:33 72 25 95 Mechanical Ventilator 40 02/28/19 12:33 71 25 02/28/19 12:08 142/63 02/28/19 12:00 Mechanical Ventilator 02/28/19 12:00 72 02/28/19 12:00 40 02/28/19 12:00 97.5 71 22 142/63 (89) 97 02/28/19 11:00 72 18 146/63 (90) 97 02/28/19 10:30 71 20 149/57 (87) 97 02/28/19 10:21 73 23 40 02/28/19 10:20 40 02/28/19 10:15 73 20 139/64 (89) 99 02/28/19 10:00 71 15 139/64 (89) 98 02/28/19 10:00 76 19 134/79 (97) 98 02/28/19 09:45 71 19 139/64 (89) 97 02/28/19 09:30 73 22 138/51 (80) 96 02/28/19 09:15 77 18 134/79 (97) 98 02/28/19 09:01 141/121 02/28/19 09:00 18 Mechanical Ventilator 40 02/28/19 09:00 76 19 134/79 (97) 98 02/28/19 08:47 77 141/121 02/28/19 08:47 77 141/121 02/28/19 08:45 77 16 141/121 (128) 98 02/28/19 08:39 75 32 40 02/28/19 08:30 76 20 141/121 (128) 97 02/28/19 08:30 18 Mechanical Ventilator 40 02/28/19 08:30 76 20 141/121 (128) 97 02/28/19 08:15 78 18 143/68 (93) 98 02/28/19 08:00 40 02/28/19 08:00 Mechanical Ventilator 02/28/19 08:00 18 Mechanical Ventilator 40 02/28/19 08:00 77 17 143/68 (93) 98 02/28/19 07:30 75 19 144/66 (92) 98 02/28/19 07:28 74 02/28/19 07:10 75 33 98 Mechanical Ventilator 40 02/28/19 07:04 76 31 40 02/28/19 07:03 77 29 98 Mechanical Ventilator 40 02/28/19 07:00 97.5 76 18 148/60 (89) 97 02/28/19 07:00 18 Mechanical Ventilator 40 02/28/19 06:00 24 Mechanical Ventilator 40 02/28/19 06:00 75 24 126/61 (82) 96 02/28/19 05:32 152/59 02/28/19 05:32 152/59 02/28/19 05:30 75 24 152/63 (92) 96 02/28/19 05:12 75 30 40 40 02/28/19 05:00 75 24 152/59 (90) 95 02/28/19 05:00 24 Mechanical Ventilator 40 02/28/19 04:30 76 24 144/68 (93) 94 02/28/19 04:00 73 02/28/19 04:00 40 02/28/19 04:00 24 Mechanical Ventilator 40 02/28/19 04:00 99.2 76 21 150/71 (97) 92 02/28/19 04:00 Mechanical Ventilator 02/28/19 03:30 77 24 148/61 (90) 93 02/28/19 03:28 78 24 143/69 (93) 100 02/28/19 03:00 78 24 151/88 (109) 94 02/28/19 03:00 24 Non-Rebreather 40 02/28/19 02:54 88 24 40 40 02/28/19 02:30 78 24 145/70 (95) 94 02/28/19 02:00 84 24 137/63 (87) 99 02/28/19 02:00 24 Mechanical Ventilator 40 02/28/19 01:32 72 24 100 Mechanical Ventilator 40 02/28/19 01:30 87 24 144/69 (94) 99 02/28/19 01:22 92 25 95 Mechanical Ventilator 40 02/28/19 01:21 92 25 40 40 02/28/19 01:00 24 Mechanical Ventilator 40 02/28/19 01:00 79 24 138/66 (90) 96 02/28/19 00:54 157/64 02/28/19 00:30 79 24 139/63 (88) 96 02/28/19 00:00 79 02/28/19 00:00 24 Mechanical Ventilator 40 02/28/19 00:00 Mechanical Ventilator 02/28/19 00:00 40 02/28/19 00:00 99.5 78 24 133/75 (94) 95 02/27/19 23:30 78 24 138/58 (84) 94 02/27/19 23:00 79 24 128/76 (93) 99 02/27/19 23:00 24 Mechanical Ventilator 40 02/27/19 22:48 79 24 40 40 02/27/19 22:30 80 24 147/60 (89) 95 02/27/19 22:00 24 Mechanical Ventilator 40 02/27/19 22:00 82 24 157/64 (95) 94 02/27/19 21:30 78 24 154/60 (91) 98 02/27/19 21:17 81 24 40 40 02/27/19 21:00 81 24 152/62 (92) 98 02/27/19 21:00 24 Mechanical Ventilator 40 02/27/19 20:59 82 142/57 02/27/19 20:58 142/57 02/27/19 20:58 142/57 02/27/19 20:30 74 24 142/57 (85) 99 02/27/19 20:00 Mechanical Ventilator 02/27/19 20:00 99.1 77 24 153/56 (88) 99 02/27/19 20:00 82 02/27/19 20:00 24 Mechanical Ventilator 40 02/27/19 20:00 40 02/27/19 19:40 76 24 100 Mechanical Ventilator 40 02/27/19 19:30 79 24 155/60 (91) 97 02/27/19 19:28 78 22 40 40 02/27/19 19:28 78 22 97 Mechanical Ventilator 40 02/27/19 19:21 24 Mechanical Ventilator 40 Intake and Output 02/27/19 02/28/19 19:00 07:00 Intake Total 1769.000 ml 715 ml Output Total 2325 ml 1200 ml Balance -556.000 ml -485 ml Free Water 30 ml IV Total 1150.000 ml 169 ml Tube Feeding 504 ml 516 ml Other 115 ml Output Urine Total 2325 ml 1200 ml Stool Total 0 ml Laboratory Tests 02/28/19 04:30: White Blood Count 5.0, Red Blood Count 2.91L, Hemoglobin 8.4L, Hematocrit 25.8L , Mean Corpuscular Volume 89, Mean Corpuscular Hemoglobin 28.8, Mean Corpuscular Hemoglobin Concent 32.5, Red Cell Distribution Width 17.1H, Platelet Count 115L, Mean Platelet Volume 6.2L, Neutrophils (%) (Auto) 84.6H, Lymphocytes (%) (Auto) 6.1L, Monocytes (%) (Auto) 8.2, Eosinophils (%) (Auto) 0.8, Basophils (%) (Auto) 0.3, Sodium Level 132L, Potassium Level 4.1, Chloride Level 99, Carbon Dioxide Level 21, Anion Gap 12, Blood Urea Nitrogen 74H, Creatinine 3.2H, Estimat Glomerular Filtration Rate 20.0, Glucose Level 167H, Calcium Level 8.3L, Total Bilirubin 0.4, Aspartate Amino Transf (AST/SGOT) 67H, Alanine Aminotransferase (ALT/SGPT) 51, Alkaline Phosphatase 130H, Total Protein 5.5L, Albumin 2.5L, Globulin 3.0, Albumin/Globulin Ratio 0.8L Height (Feet): 6 Height (Inches): 0.00 Weight (Pounds): 260 General Appearance: other - intubated EENT: other - ETT Neck: normal alignment Cardiovascular: regular rhythm Respiratory/Chest: decreased breath sounds Abdomen: normal bowel sounds Pelvis: normal external exam Edema: 2+ Arm (L), 2+ Arm (R), 2+ Leg (L), 2+ Leg (R), 2+ Pedal (L), 2+ Pedal ( R), 2+ Generalized Objective Current Medications Medications (Trade) Dose Ordered Sig/Marquis Route PRN Reason Start Time Stop Time Status Last Admin Dose Admin Acetaminophen (Tylenol) 650 mg Q4H PRN ORAL Mild Pain (Pain Scale 1-3) 02/07/19 11:15 03/08/19 17:29 02/22/19 14:37 Acetaminophen/ Butalbital/ Caffeine (Fioricet) 1 tab Q8H PRN ORAL For Headache 02/08/19 17:15 03/10/19 17:14 Albuterol/ Ipratropium (Albuterol/ Ipratropium) 3 ml Q4H PRN HHN Shortness of Breath 02/26/19 12:30 03/03/19 12:29 Albuterol/ Ipratropium (Albuterol/ Ipratropium) 3 ml Q6HRT HHN 02/26/19 13:00 03/03/19 12:59 02/28/19 12:33 Amlodipine Besylate (Norvasc) 10 mg DAILY NG 02/15/19 09:00 03/14/19 15:59 02/28/19 08:47 Artificial Tears (Lacri-Lube) 1 applic AC+HS BOTH EYES 02/18/19 06:30 03/20/19 06:29 02/28/19 16:34 Bisacodyl (Dulcolax) 5 mg DAILYPRN PRN ORAL Constipation 02/08/19 17:15 03/10/19 17:14 02/25/19 12:45 Cefepime HCl 1 gm/ Dextrose 55 ml @ 110 mls/hr Q24H IVPB 02/27/19 16:00 03/06/19 15:59 02/28/19 16:34 Chlorhexidine Gluconate (Jessy-Hex 2%) 1 applic DAILY@2000 TOPIC 02/25/19 20:00 03/27/19 19:59 02/27/19 19:20 Clindamycin HCl/ Dextrose 50 ml @ 100 mls/hr Q8HR IV 02/27/19 22:00 03/06/19 21:59 02/28/19 14:19 Clonidine HCl (Catapres Tab) 0.1 mg EVERY 12 HOURS NG 02/25/19 21:00 03/19/19 13:59 02/28/19 09:01 Dextrose (Dextrose 50%) 25 ml Q30M PRN IV Hypoglycemia 02/26/19 07:30 03/28/19 07:29 Dextrose (Dextrose 50%) 50 ml Q30M PRN IV Hypoglycemia 02/26/19 07:30 03/28/19 07:29 Docusate Sodium (Colace) 100 mg TID GT 02/12/19 18:00 03/12/19 08:59 02/28/19 18:04 Fentanyl Citrate 2500 mcg/Sodium Chloride 250 ml @ 0 mls/hr Q24H IV 02/23/19 20:30 03/02/19 20:29 02/28/19 16:08 Fluconazole/ Sodium Chloride 100 ml @ 100 mls/hr Q24H IV 02/26/19 18:00 03/05/19 17:59 02/28/19 18:04 Furosemide (Lasix) 40 mg DAILY IV 03/01/19 09:00 03/31/19 08:59 Guaifenesin (Mucinex ER) 600 mg TWICE A DAY ORAL 02/07/19 18:00 03/09/19 08:59 02/28/19 18:04 Heparin Sodium (Porcine) (Heparin 5000 units/ml) 5,000 units EVERY 12 HOURS SUBQ 02/26/19 21:00 03/28/19 20:59 02/27/19 21:00 Hydralazine HCl (Apresoline) 10 mg Q4H PRN IV bp over 165 syst 02/17/19 10:15 03/19/19 10:14 02/19/19 14:45 Hydralazine HCl (Apresoline) 50 mg Q8HR NG 02/22/19 14:00 03/21/19 21:59 02/28/19 14:19 Insulin Aspart (NovoLOG) EVERY 6 HOURS SUBQ 02/26/19 12:00 03/28/19 11:59 02/28/19 18:18 Isosorbide Dinitrate (Isordil) 20 mg Q6HR NG 02/22/19 12:00 03/15/19 12:59 02/28/19 18:04 Lorazepam (Ativan 2mg/ml 1ml) 2 mg Q2H PRN IV For Anxiety 02/27/19 13:48 03/06/19 13:47 02/28/19 05:34 Metoclopramide HCl (Reglan) 5 mg Q8H IVP 02/26/19 09:00 03/28/19 08:59 02/28/19 16:34 Metolazone (Zaroxolyn) 10 mg DAILY NG 02/19/19 10:00 03/21/19 09:59 02/28/19 08:46 Metoprolol Tartrate (Lopressor) 100 mg Q12HR ORAL 02/22/19 21:00 03/08/19 20:59 02/28/19 08:47 Midazolam HCl (Versed 2mg/2ml vial) 1 mg Q2H PRN IVP Agitation 02/13/19 08:45 03/15/19 08:44 02/27/19 11:05 Neomycin/ Polymyxin/ Dexamethasone (Maxitrol Opth Oint) 1 applic BEDTIME BOTH EYES 02/18/19 21:00 03/20/19 20:59 02/27/19 21:01 Nitroglycerin (Ntg) 0.4 mg Q5M PRN SL Prn Chest Pain 02/07/19 11:00 03/08/19 17:29 02/08/19 07:42 Ondansetron HCl (Zofran) 4 mg Q6H PRN IVP Nausea & Vomiting 02/07/19 11:15 03/08/19 11:14 02/09/19 00:58 Pantoprazole (Protonix) 40 mg DAILY IVP 02/26/19 09:00 03/24/19 20:59 02/28/19 08:46 Patient Own Medication (Patient's Own Med) 1 ea BID ORAL 02/07/19 18:00 03/09/19 17:59 02/28/19 18:05 Patient Own Medication (Patient's Own Med) 1 ea Q48H ORAL 02/18/19 09:00 03/20/19 08:59 02/28/19 08:48 Patient Own Medication (Patient's Own Med) 2 ea DAILY ORAL 02/08/19 09:00 03/10/19 08:59 02/28/19 08:48 Polyethylene Glycol (Miralax) 17 gm BEDTIME ORAL 02/08/19 21:00 03/10/19 20:59 02/25/19 20:56 Primaquine Phosphate (Primaquine) 26.3 mg DAILY ORAL 02/28/19 09:00 03/30/19 08:59 02/28/19 08:47 Sennosides (Senokot) 8.6 mg DAILY ORAL 02/13/19 12:00 03/15/19 11:59 02/28/19 08:46 Carlito Nichols MD Feb 28, 2019 19:03
--- NOTE | 2019-02-28 19:25 | NUR ---
HAND-OFF: Report given to TESSA Bell.
--- NOTE | 2019-02-28 19:30 | NUR ---
.NURSE NOTES: Received pt in no apparent distress; eyes opens to name/pain. Mildly restless; grimacing constantly and attempting to get out of restraints. Remains orally intubated and appears to vamshi tolerating current vent parameters; saturating 100% on .40 fiO2. ETT#7.5 placed over right lip line at 24cm. Secretions mod amt; tannish, thick but no bleeding. Chest sounds with scattered rhonchi. Afebrile; NSR on the scope; BP stable. PICC on KATIE intact with IV at TKO. Fentanyl gtt infuses at 140mcg/h to RASS-2. Pt has generalized edema. NGT to left nare in situ, TF with Nepro running at 43ml/h with 0 residuals. Rectal tube in place, draining dark broen liquid stools. FC patent; UOP 100ml/h; dark scott. Bilat soft wrist restraints maintained. Will monitor VS and sedation status.
--- NOTE | 2019-02-28 19:30 | NUR ---
RESPIRATORY NOTE: Received pt on AC 24, 550VT, 40%, PEEP +5. Pt intubated w/ ETT 7.5 @ 24cm lipline, secured by anchorfast. Pt asleep/sedated. B/S elina rhonchi, sxn small to moderate amounts of thick, phipps-yellow secretions. Both hands on soft restraints to prevent pt from self-extubation. Vent plugged into red outlet, ambubag at bedside. Pt in no apparent distress at this time. Will continue to monitor pt.
--- NOTE | 2019-02-28 20:00 | NUR ---
NURSE NOTES: Remains restless, agitated. Increased Fentanyl gtt to 200mcg/h to RASS-2. Will continue to monitor
--- NOTE | 2019-02-28 20:35 | General Progress Note ---
Assessment/Plan Status: stable Assessment/Plan: 58 y Male admitted to the hospital due to fever, shortness of breath and chest pain. # Multilobar pneumonia in patient with HIV - Broad sp atbx started. Continue Zosyn, Vancomycin, Azithromycin, TM-SMX - Fluconazole per ID - Droplet precaution - Flu swab ordered. - Oxygen support, ventilatory support as not able to wean off ventilator due to agitation. Consider change of sedation agent from Fentanyl to Versed if indicated. - ID consult appreciated. Discussed today and monitor renal function as possibly change in creatinine due to TM-SMX -s/p PICC line, # Hypoxemic respiratory failure - Critical care follow up. Unable to wean off the ventilatior. - SBT today - Possible need for tracheostomy in the future. - Due to pneumonia poss pjp # Chest pain - EKG with bifascicular block RBB and LAFB, no ST changes. - Trend troponin x3 completed - ECHO completed with no WMA and preserved EF. Dr. Francois consulted. Consideration for outpatient cath vs possibly myocarditis due to underlying viral infection. No evidence of Takotsubo per TTE. - NGT prn - Pain control with morphine # HIV - Continue HARRT - VL is undetectable per patient report. T cell count > 400 - CD 4 count 191 # HTN - Resume home medication - Clonidine, Isordil added today. 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 Objective Last 24 Hour Vital Signs Date Time Temp Pulse Resp B/P (MAP) Pulse Ox O2 Delivery O2 Flow Rate FiO2 02/28/19 20:00 82 02/28/19 20:00 Mechanical Ventilator 02/28/19 20:00 40 02/28/19 20:00 82 16 159/81 (107) 99 02/28/19 19:45 80 22 153/60 (91) 98 02/28/19 19:35 79 24 100 Mechanical Ventilator 40 02/28/19 19:30 97.9 79 23 147/61 (89) 100 02/28/19 19:25 79 26 40 02/28/19 19:25 79 26 100 Mechanical Ventilator 40 02/28/19 19:15 78 19 153/63 (93) 97 02/28/19 19:00 79 20 153/58 (89) 100 02/28/19 19:00 26 Mechanical Ventilator 40 02/28/19 18:45 76 15 147/59 (88) 98 02/28/19 18:30 75 22 142/59 (86) 98 02/28/19 18:15 74 21 145/59 (87) 98 02/28/19 18:04 147/52 02/28/19 18:00 97.6 78 23 164/63 (96) 99 02/28/19 18:00 27 Mechanical Ventilator 40 02/28/19 17:30 74 21 156/59 (91) 98 02/28/19 17:03 72 29 40 02/28/19 17:00 20 Mechanical Ventilator 40 02/28/19 17:00 72 21 151/64 (93) 98 02/28/19 16:45 72 21 149/62 (91) 99 02/28/19 16:30 72 29 149/62 (91) 98 02/28/19 16:15 71 20 147/67 (93) 98 02/28/19 16:08 20 Mechanical Ventilator 40 02/28/19 16:00 97.5 70 21 147/67 (93) 98 02/28/19 16:00 Mechanical Ventilator 02/28/19 15:43 69 02/28/19 15:00 70 23 138/58 (84) 98 02/28/19 15:00 40 02/28/19 14:51 71 26 40 02/28/19 14:19 138/63 02/28/19 14:00 72 24 138/63 (88) 97 02/28/19 13:00 72 18 146/63 (90) 97 02/28/19 13:00 73 23 137/66 (89) 97 02/28/19 12:50 Mechanical Ventilator 02/28/19 12:40 72 25 98 Mechanical Ventilator 40 02/28/19 12:33 72 25 95 Mechanical Ventilator 40 02/28/19 12:33 71 25 02/28/19 12:08 142/63 02/28/19 12:00 Mechanical Ventilator 02/28/19 12:00 72 02/28/19 12:00 40 02/28/19 12:00 97.5 71 22 142/63 (89) 97 02/28/19 11:00 72 18 146/63 (90) 97 02/28/19 10:30 71 20 149/57 (87) 97 02/28/19 10:21 73 23 40 02/28/19 10:20 40 02/28/19 10:15 73 20 139/64 (89) 99 02/28/19 10:00 71 15 139/64 (89) 98 02/28/19 10:00 76 19 134/79 (97) 98 02/28/19 09:45 71 19 139/64 (89) 97 02/28/19 09:30 73 22 138/51 (80) 96 02/28/19 09:15 77 18 134/79 (97) 98 02/28/19 09:01 141/121 02/28/19 09:00 18 Mechanical Ventilator 40 02/28/19 09:00 76 19 134/79 (97) 98 02/28/19 08:47 77 141/121 02/28/19 08:47 77 141/121 02/28/19 08:45 77 16 141/121 (128) 98 02/28/19 08:39 75 32 40 02/28/19 08:30 76 20 141/121 (128) 97 02/28/19 08:30 18 Mechanical Ventilator 40 02/28/19 08:30 76 20 141/121 (128) 97 02/28/19 08:15 78 18 143/68 (93) 98 02/28/19 08:00 40 02/28/19 08:00 Mechanical Ventilator 02/28/19 08:00 18 Mechanical Ventilator 40 02/28/19 08:00 77 17 143/68 (93) 98 02/28/19 07:30 75 19 144/66 (92) 98 02/28/19 07:28 74 02/28/19 07:10 75 33 98 Mechanical Ventilator 40 02/28/19 07:04 76 31 40 02/28/19 07:03 77 29 98 Mechanical Ventilator 40 02/28/19 07:00 97.5 76 18 148/60 (89) 97 02/28/19 07:00 18 Mechanical Ventilator 40 02/28/19 06:00 24 Mechanical Ventilator 40 02/28/19 06:00 75 24 126/61 (82) 96 02/28/19 05:32 152/59 02/28/19 05:32 152/59 02/28/19 05:30 75 24 152/63 (92) 96 02/28/19 05:12 75 30 40 40 02/28/19 05:00 75 24 152/59 (90) 95 02/28/19 05:00 24 Mechanical Ventilator 40 02/28/19 04:30 76 24 144/68 (93) 94 02/28/19 04:00 73 02/28/19 04:00 40 02/28/19 04:00 24 Mechanical Ventilator 40 02/28/19 04:00 99.2 76 21 150/71 (97) 92 02/28/19 04:00 Mechanical Ventilator 02/28/19 03:30 77 24 148/61 (90) 93 02/28/19 03:28 78 24 143/69 (93) 100 02/28/19 03:00 78 24 151/88 (109) 94 02/28/19 03:00 24 Non-Rebreather 40 02/28/19 02:54 88 24 40 40 02/28/19 02:30 78 24 145/70 (95) 94 02/28/19 02:00 84 24 137/63 (87) 99 02/28/19 02:00 24 Mechanical Ventilator 40 02/28/19 01:32 72 24 100 Mechanical Ventilator 40 02/28/19 01:30 87 24 144/69 (94) 99 02/28/19 01:22 92 25 95 Mechanical Ventilator 40 02/28/19 01:21 92 25 40 40 02/28/19 01:00 24 Mechanical Ventilator 40 02/28/19 01:00 79 24 138/66 (90) 96 02/28/19 00:54 157/64 02/28/19 00:30 79 24 139/63 (88) 96 02/28/19 00:00 79 02/28/19 00:00 24 Mechanical Ventilator 40 02/28/19 00:00 Mechanical Ventilator 02/28/19 00:00 40 02/28/19 00:00 99.5 78 24 133/75 (94) 95 02/27/19 23:30 78 24 138/58 (84) 94 02/27/19 23:00 79 24 128/76 (93) 99 02/27/19 23:00 24 Mechanical Ventilator 40 02/27/19 22:48 79 24 40 40 02/27/19 22:30 80 24 147/60 (89) 95 02/27/19 22:00 24 Mechanical Ventilator 40 02/27/19 22:00 82 24 157/64 (95) 94 02/27/19 21:30 78 24 154/60 (91) 98 02/27/19 21:17 81 24 40 40 02/27/19 21:00 81 24 152/62 (92) 98 02/27/19 21:00 24 Mechanical Ventilator 40 02/27/19 20:59 82 142/57 02/27/19 20:58 142/57 02/27/19 20:58 142/57 Intake and Output 02/27/19 02/28/19 19:00 07:00 Intake Total 1769.000 ml 715 ml Output Total 2325 ml 1200 ml Balance -556.000 ml -485 ml Free Water 30 ml IV Total 1150.000 ml 169 ml Tube Feeding 504 ml 516 ml Other 115 ml Output Urine Total 2325 ml 1200 ml Stool Total 0 ml Laboratory Tests 02/28/19 04:30: White Blood Count 5.0, Red Blood Count 2.91L, Hemoglobin 8.4L, Hematocrit 25.8L , Mean Corpuscular Volume 89, Mean Corpuscular Hemoglobin 28.8, Mean Corpuscular Hemoglobin Concent 32.5, Red Cell Distribution Width 17.1H, Platelet Count 115L, Mean Platelet Volume 6.2L, Neutrophils (%) (Auto) 84.6H, Lymphocytes (%) (Auto) 6.1L, Monocytes (%) (Auto) 8.2, Eosinophils (%) (Auto) 0.8, Basophils (%) (Auto) 0.3, Sodium Level 132L, Potassium Level 4.1, Chloride Level 99, Carbon Dioxide Level 21, Anion Gap 12, Blood Urea Nitrogen 74H, Creatinine 3.2H, Estimat Glomerular Filtration Rate 20.0, Glucose Level 167H, Calcium Level 8.3L, Total Bilirubin 0.4, Aspartate Amino Transf (AST/SGOT) 67H, Alanine Aminotransferase (ALT/SGPT) 51, Alkaline Phosphatase 130H, Total Protein 5.5L, Albumin 2.5L, Globulin 3.0, Albumin/Globulin Ratio 0.8L Height (Feet): 6 Height (Inches): 0.00 Weight (Pounds): 260 Objective General Appearance: intubated, no agitation EENT: intubated Neck: non-tender, normal alignment Cardiovascular: normal peripheral pulses, normal rate Respiratory/Chest: chest wall non-tender, lungs clear Abdomen: normal bowel sounds, non tender Extremities: normal range of motion, non-tender Edema: trace edema 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
[2019-02-28] MEDS: Maxitrol Opth Oint 3.5gm BOTH EYES SCH (21:02)
[2019-02-28] MEDS: Dyna-Hex 2% Top Sol 2oz TOPIC SCH (21:02)
[2019-02-28] MEDS: Miralax 17gm pkt ORAL SCH (21:04)
--- NOTE | 2019-02-28 22:00 | NUR ---
NURSE NOTES: Still mildly restless. Fentanyl gtt kept at 200mcg/h. PICC intact on KATIE. tolerating tube feeding. VSS.
--- NOTE | 2019-02-28 23:14 | Neurology Progress Note ---
Interim History Interim History ROS Limited/Unobtainable: Yes Complaints: AMS Interim History more alert, not following, eyes dry Objective Physical Exam Last Vital Signs Date Time Temp Pulse Resp B/P (MAP) Pulse Ox O2 Delivery O2 Flow Rate FiO2 02/28/19 23:01 81 27 40 02/28/19 22:00 Mechanical Ventilator 02/28/19 21:51 151/43 02/28/19 21:30 100 02/28/19 19:30 97.9 02/26/19 12:53 75.0 Laboratory Tests Test 02/28/19 04:30 White Blood Count 5.0 K/UL (4.8-10.8) Red Blood Count 2.91 M/UL (4.70-6.10) L Hemoglobin 8.4 G/DL (14.2-18.0) L Hematocrit 25.8 % (42.0-52.0) L Mean Corpuscular Volume 89 FL (80-99) Mean Corpuscular Hemoglobin 28.8 PG (27.0-31.0) Mean Corpuscular Hemoglobin Concent 32.5 G/DL (32.0-36.0) Red Cell Distribution Width 17.1 % (11.6-14.8) H Platelet Count 115 K/UL (150-450) L Mean Platelet Volume 6.2 FL (6.5-10.1) L Neutrophils (%) (Auto) 84.6 % (45.0-75.0) H Lymphocytes (%) (Auto) 6.1 % (20.0-45.0) L Monocytes (%) (Auto) 8.2 % (1.0-10.0) Eosinophils (%) (Auto) 0.8 % (0.0-3.0) Basophils (%) (Auto) 0.3 % (0.0-2.0) Sodium Level 132 MMOL/L (136-145) L Potassium Level 4.1 MMOL/L (3.5-5.1) Chloride Level 99 MMOL/L (98-107) Carbon Dioxide Level 21 MMOL/L (21-32) Anion Gap 12 mmol/L (5-15) Blood Urea Nitrogen 74 mg/dL (7-18) H Creatinine 3.2 MG/DL (0.55-1.30) H Estimat Glomerular Filtration Rate 20.0 mL/min (>60) Glucose Level 167 MG/DL (74-106) H Calcium Level 8.3 MG/DL (8.5-10.1) L Total Bilirubin 0.4 MG/DL (0.2-1.0) Aspartate Amino Transf (AST/SGOT) 67 U/L (15-37) H Alanine Aminotransferase (ALT/SGPT) 51 U/L (12-78) Alkaline Phosphatase 130 U/L (46-116) H Total Protein 5.5 G/DL (6.4-8.2) L Albumin 2.5 G/DL (3.4-5.0) L Globulin 3.0 g/dL Albumin/Globulin Ratio 0.8 (1.0-2.7) L General: well developed, well nourished, other Head: normocophalic, other Neck: no rigidity EENT: benign, other Neurologic Exam Mental Status: other Speech: other Language: other Cranial Nerve II: other Cranial Nerves III, IV, : other Cranial Nerve V: other Cranial Nerve VII: other Cranial Nerve VIII: other Cranial Nerve IX: other Cranial Nerve X: other Cranial Nerve XI: other Cranial Nerve XII: other Motor System: other Sensory: other Coordination: other Deep Tendon Reflexes: 0 bicep (L), 0 bicep (R), 0 tricep (L), 0 tricep (R), 0 brachioradialis (L), 0 brachioradialis (R), 0 knee (L), 0 knee (R), 0 ankle (L) , 0 ankle (R) Reflexes: mute plantar (L), mute plantar (R) Stance: other Gait: other Objective he is intubated and sedated. pupils are symmetric and reactive corneals present he withdraws to noxious stimuli without localizing. 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 (33) acute small R pontomedullary and left cerebellar peduncle strokes. 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
[2019-03-01] VITALS (40 sets, daily range): BP systolic 137–171; BP diastolic 42–118
--- NOTE | 2019-03-01 | NUR ---
NURSE NOTES: afebrile; VSS. Asleep, calm. Irrigated rectal tube. Urine dark scott/brownish; cloudy with sediments. Tolerates current vent settings. Will continue to monitor. Soft wrist restraints renewed
[2019-03-01] MEDS: Albuterol/Ipratropium 3ml neb HHN SCH ×4 (01:10→19:09)
[2019-03-01] MEDS: fentaNYL Citrate 2500mcg in NS 250ml IV SCH ×3 (01:32→17:01)
[2019-03-01] MEDS: Metoclopramide 10mg/2ml Inj IVP SCH ×3 (01:34→18:24)
--- NOTE | 2019-03-01 02:00 | NUR ---
NURSE NOTES: Calm, asleep and appears adequately sedated with Fentanyl at 200mcg/h. VSS; no distress
--- NOTE | 2019-03-01 04:00 | NUR ---
NURSE NOTES: Complete bed bath given. Irrigated rectal tube. Afebrile; BP stable; NSR. Mildly restless while doing the bath. Tolerating NGT feeding of Nepro at 43ml/h; 0 residuals. No vent changes; plans to wean pt this morning. Will gradually wean Fentanyl to off. Restraints maintained.
--- NOTE | 2019-03-01 05:00 | NUR ---
NURSE NOTES: Fentanyl gtt titrated down to 150mcg/h. Pt mildly restless.
--- NOTE | 2019-03-01 05:30 | NUR ---
NURSE NOTES: Tube feeding turned off. For possible weaning from ventilator this morning
[2019-03-01] MEDS: HydrALAZINE 50mg tab NG SCH ×3 (05:37→22:43)
[2019-03-01] MEDS: NovoLOG Insulin Flexpen SUBQ SCH ×3 (05:39→18:28)
[2019-03-01] MEDS: Clindamycin 900mg 50 ML IV SCH ×3 (05:42→22:43)
[2019-03-01 05:44] LABS: HEMATOCRIT 24.8 % (42.0-52.0); HEMOGLOBIN 8.1 G/DL (14.2-18.0); MEAN CORPUSCULAR VOLUME 88 FL (80-99); PLATELET COUNT 104 K/UL (150-450); RED BLOOD COUNT 2.82 M/UL (4.70-6.10); RED CELL DISTRIBUTION WIDTH 16.8 % (11.6-14.8); WHITE BLOOD COUNT 4.2 K/UL (4.8-10.8)
[2019-03-01] MEDS: Lacri-Lube Opth Oint 3.5gm BOTH EYES SCH ×4 (06:02→20:46)
--- NOTE | 2019-03-01 06:15 | NUR ---
NURSE NOTES: Fentanyl gtt turned off. Pt mildly restless
[2019-03-01 06:27] LABS: ALANINE AMINOTRANSFERASE 51 U/L (12-78); ALBUMIN 2.4 G/DL (3.4-5.0); ALBUMIN/GLOBULIN RATIO 0.8 (1.0-2.7); ALKALINE PHOSPHATASE 129 U/L (46-116); ANION GAP 12 mmol/L (5-15); ASPARTATE AMINO TRANSFERASE 59 U/L (15-37); BILIRUBIN,TOTAL 0.4 MG/DL (0.2-1.0); BLOOD UREA NITROGEN 66 mg/dL (7-18); CALCIUM 8.7 MG/DL (8.5-10.1); CARBON DIOXIDE 22 MMOL/L (21-32); CHLORIDE 102 MMOL/L (98-107); CREATININE 2.6 MG/DL (0.55-1.30); GAMMA GLUTAMYL TRANSPEPTIDASE 165 U/L (5-85); PHOSPHORUS 3.3 MG/DL (2.5-4.9); POTASSIUM 3.5 MMOL/L (3.5-5.1); SODIUM 136 MMOL/L (136-145)
--- NOTE | 2019-03-01 06:50 | NUR ---
RESPIRATORY NOTE: Received pt on AC 24-550ml-40%- peep 5. Pt was orally intubated with ETT size 7.5 @24 cm lip line, secured by anchor fast. Pt is off sedation, resting in the bed. Carlton rhonchi diminished B/S, suctioned moderate amt of thick/frothy phipps yellow secretions without incidents. Breathing tx Duoneb given without any adverse reactions. Pt is tachypneic RR 30bpm but no resp distress noted. Alarms are set and audible, vent is plugged into the red outlet, ambu bag is at bedside. Will try to wean pt in the next vent check. Will continue to monitor pt closely.
--- NOTE | 2019-03-01 07:01 | General Progress Note ---
Assessment/Plan Problem List: (1) ISH (acute kidney injury) ICD Codes: N17.9 - Acute kidney failure, unspecified SNOMED: 91895102 (2) Uncontrolled type 2 diabetes mellitus with chronic kidney disease ICD Codes: E11.22 - Type 2 diabetes mellitus with diabetic chronic kidney disease; E11.65 - Type 2 diabetes mellitus with hyperglycemia SNOMED: 47275893, 134203853, 687334391 (3) HIV disease ICD Codes: B20 - Human immunodeficiency virus [HIV] disease SNOMED: 40874419 (4) Respiratory distress ICD Codes: R06.03 - Acute respiratory distress SNOMED: 639323675 Status: stable Assessment/Plan: - continue Novolog sliding scale every 6 hours - add Levemir 6 units daily Subjective ROS Limited/Unobtainable: Yes Allergies: Coded Allergies: No Known Allergies (Unverified , 02/05/13) Subjective events noted remained intubated in ICU glucose values are slightly on higher side Item Value Date Time Bedside Blood Glucose 197 mg/dl H 03/01/19 0600 Bedside Blood Glucose 205 mg/dl H 03/01/19 0009 Bedside Blood Glucose 169 mg/dl H 02/28/19 1818 Bedside Blood Glucose 201 mg/dl H 02/28/19 1208 Bedside Blood Glucose 182 mg/dl H 02/28/19 0600 Objective Last 24 Hour Vital Signs Date Time Temp Pulse Resp B/P (MAP) Pulse Ox O2 Delivery O2 Flow Rate FiO2 03/01/19 06:43 86 34 94 Mechanical Ventilator 40 03/01/19 06:42 84 30 40 03/01/19 06:00 84 21 141/87 (105) 97 03/01/19 06:00 23 Mechanical Ventilator 40 03/01/19 05:38 150/67 03/01/19 05:37 150/67 03/01/19 05:30 84 23 150/67 (94) 97 03/01/19 05:00 26 Mechanical Ventilator 40 03/01/19 05:00 26 Mechanical Ventilator 40 03/01/19 05:00 83 25 143/60 (87) 96 03/01/19 04:57 84 25 40 03/01/19 04:30 84 22 140/54 (82) 97 03/01/19 04:00 24 Mechanical Ventilator 40 03/01/19 04:00 24 Mechanical Ventilator 40 03/01/19 04:00 Mechanical Ventilator 03/01/19 04:00 98.7 84 19 142/62 (88) 96 03/01/19 03:30 82 25 151/61 (91) 97 03/01/19 03:01 88 29 40 03/01/19 03:00 86 28 143/118 (126) 100 03/01/19 03:00 27 Mechanical Ventilator 40 03/01/19 02:30 83 17 146/117 (127) 92 03/01/19 02:00 83 22 137/68 (91) 95 03/01/19 02:00 24 Mechanical Ventilator 40 03/01/19 01:32 24 Mechanical Ventilator 40 03/01/19 01:30 82 25 145/59 (87) 97 03/01/19 01:21 82 30 100 Mechanical Ventilator 40 03/01/19 01:11 81 31 98 Mechanical Ventilator 40 03/01/19 01:10 83 31 40 03/01/19 01:00 82 146/55 (85) 96 03/01/19 01:00 24 Mechanical Ventilator 40 03/01/19 00:30 81 24 143/70 (94) 99 03/01/19 00:09 40 03/01/19 00:08 85 03/01/19 00:05 Mechanical Ventilator 03/01/19 00:00 98.4 78 24 150/61 (90) 94 03/01/19 00:00 24 Mechanical Ventilator 40 02/28/19 23:47 154/59 02/28/19 23:30 79 24 154/59 (90) 95 02/28/19 23:01 81 27 40 02/28/19 23:00 23 Mechanical Ventilator 40 02/28/19 23:00 78 25 151/59 (89) 100 02/28/19 22:30 78 23 143/56 (85) 93 02/28/19 22:00 25 Mechanical Ventilator 40 02/28/19 22:00 78 26 141/63 (89) 98 02/28/19 21:51 151/43 02/28/19 21:30 78 24 151/43 (79) 100 02/28/19 21:12 83 30 40 02/28/19 21:03 152/60 02/28/19 21:03 82 152/60 02/28/19 21:00 83 25 145/62 (89) 99 7/10/19 21:00 23 Mechanical Ventilator 40 02/28/19 20:30 80 22 152/60 (90) 100 02/28/19 20:00 82 02/28/19 20:00 Mechanical Ventilator 02/28/19 20:00 40 02/28/19 20:00 82 16 159/81 (107) 99 02/28/19 20:00 23 Mechanical Ventilator 40 02/28/19 19:45 80 22 153/60 (91) 98 02/28/19 19:35 79 24 100 Mechanical Ventilator 40 02/28/19 19:30 97.9 79 23 147/61 (89) 100 02/28/19 19:25 79 26 40 02/28/19 19:25 79 26 100 Mechanical Ventilator 40 02/28/19 19:15 78 19 153/63 (93) 97 02/28/19 19:00 79 20 153/58 (89) 100 02/28/19 19:00 26 Mechanical Ventilator 40 02/28/19 18:45 76 15 147/59 (88) 98 02/28/19 18:30 75 22 142/59 (86) 98 02/28/19 18:15 74 21 145/59 (87) 98 02/28/19 18:04 147/52 02/28/19 18:00 97.6 78 23 164/63 (96) 99 02/28/19 18:00 27 Mechanical Ventilator 40 02/28/19 17:30 74 21 156/59 (91) 98 02/28/19 17:03 72 29 40 02/28/19 17:00 20 Mechanical Ventilator 40 02/28/19 17:00 72 21 151/64 (93) 98 02/28/19 16:45 72 21 149/62 (91) 99 02/28/19 16:30 72 29 149/62 (91) 98 02/28/19 16:15 71 20 147/67 (93) 98 02/28/19 16:08 20 Mechanical Ventilator 40 02/28/19 16:00 97.5 70 21 147/67 (93) 98 02/28/19 16:00 Mechanical Ventilator 02/28/19 15:43 69 02/28/19 15:00 70 23 138/58 (84) 98 02/28/19 15:00 40 02/28/19 14:51 71 26 40 02/28/19 14:19 138/63 02/28/19 14:00 72 24 138/63 (88) 97 02/28/19 13:00 72 18 146/63 (90) 97 02/28/19 13:00 73 23 137/66 (89) 97 02/28/19 12:50 Mechanical Ventilator 02/28/19 12:40 72 25 98 Mechanical Ventilator 40 02/28/19 12:33 72 25 95 Mechanical Ventilator 40 02/28/19 12:33 71 25 02/28/19 12:08 142/63 02/28/19 12:00 Mechanical Ventilator 02/28/19 12:00 72 02/28/19 12:00 40 02/28/19 12:00 97.5 71 22 142/63 (89) 97 02/28/19 11:00 72 18 146/63 (90) 97 02/28/19 10:30 71 20 149/57 (87) 97 02/28/19 10:21 73 23 40 02/28/19 10:20 40 02/28/19 10:15 73 20 139/64 (89) 99 02/28/19 10:00 71 15 139/64 (89) 98 02/28/19 10:00 76 19 134/79 (97) 98 02/28/19 09:45 71 19 139/64 (89) 97 02/28/19 09:30 73 22 138/51 (80) 96 02/28/19 09:15 77 18 134/79 (97) 98 02/28/19 09:01 141/121 02/28/19 09:00 18 Mechanical Ventilator 40 02/28/19 09:00 76 19 134/79 (97) 98 02/28/19 08:47 77 141/121 02/28/19 08:47 77 141/121 02/28/19 08:45 77 16 141/121 (128) 98 02/28/19 08:39 75 32 40 02/28/19 08:30 76 20 141/121 (128) 97 02/28/19 08:30 18 Mechanical Ventilator 40 02/28/19 08:30 76 20 141/121 (128) 97 02/28/19 08:15 78 18 143/68 (93) 98 02/28/19 08:00 40 02/28/19 08:00 Mechanical Ventilator 02/28/19 08:00 18 Mechanical Ventilator 40 02/28/19 08:00 77 17 143/68 (93) 98 02/28/19 07:30 75 19 144/66 (92) 98 02/28/19 07:28 74 02/28/19 07:10 75 33 98 Mechanical Ventilator 40 02/28/19 07:04 76 31 40 02/28/19 07:03 77 29 98 Mechanical Ventilator 40 02/28/19 07:00 97.5 76 18 148/60 (89) 97 02/28/19 07:00 18 Mechanical Ventilator 40 Intake and Output 02/28/19 03/01/19 19:00 07:00 Intake Total 624.5 ml 820 ml Output Total 2070 ml 1250 ml Balance -1445.5 ml -430 ml IV Total 266.5 ml 390 ml Tube Feeding 258 ml 430 ml Other 100 ml Output Urine Total 2070 ml 1150 ml Stool Total 100 ml # Bowel Movements 30 Laboratory Tests 03/01/19 05:26: White Blood Count 4.2L, Red Blood Count 2.82L, Hemoglobin 8.1L, Hematocrit 24.8L , Mean Corpuscular Volume 88, Mean Corpuscular Hemoglobin 28.6, Mean Corpuscular Hemoglobin Concent 32.6, Red Cell Distribution Width 16.8H, Platelet Count 104L, Mean Platelet Volume 6.1L, Neutrophils (%) (Auto) , Lymphocytes (%) (Auto) , Monocytes (%) (Auto) , Eosinophils (%) (Auto) , Basophils (%) (Auto) , Neutrophils % (Manual) [Pending], Lymphocytes % (Manual) [Pending], Platelet Estimate [Pending], Platelet Morphology [Pending], Sodium Level 136, Potassium Level 3.5, Chloride Level 102, Carbon Dioxide Level 22, Anion Gap 12, Blood Urea Nitrogen 66H, Creatinine 2.6H, Estimat Glomerular Filtration Rate 25.4, Glucose Level 215H, Uric Acid 5.2, Calcium Level 8.7, Phosphorus Level 3.3, Magnesium Level 2.3, Total Bilirubin 0.4, Gamma Glutamyl Transpeptidase 165H, Aspartate Amino Transf (AST/SGOT) 59H, Alanine Aminotransferase (ALT/SGPT) 51, Alkaline Phosphatase 129H, C-Reactive Protein, Quantitative 8.3H, Pro-B-Type Natriuretic Peptide 98783T, Total Protein 5.5L, Albumin 2.4L, Globulin 3.1, Albumin/Globulin Ratio 0.8L Height (Feet): 6 Height (Inches): 0.00 Weight (Pounds): 268 General Appearance: other - intubated EENT: other - ETT Neck: normal alignment Cardiovascular: normal peripheral pulses Respiratory/Chest: decreased breath sounds Abdomen: normal bowel sounds Pelvis: normal external exam Edema: 2+ Arm (L), 2+ Arm (R), 2+ Leg (L), 2+ Leg (R), 2+ Pedal (L), 2+ Pedal ( R), 2+ Generalized Objective Current Medications Medications (Trade) Dose Ordered Sig/Marquis Route PRN Reason Start Time Stop Time Status Last Admin Dose Admin Acetaminophen (Tylenol) 650 mg Q4H PRN ORAL Mild Pain (Pain Scale 1-3) 02/07/19 11:15 03/08/19 17:29 02/22/19 14:37 Acetaminophen/ Butalbital/ Caffeine (Fioricet) 1 tab Q8H PRN ORAL For Headache 02/08/19 17:15 03/10/19 17:14 Albuterol/ Ipratropium (Albuterol/ Ipratropium) 3 ml Q4H PRN HHN Shortness of Breath 02/26/19 12:30 03/03/19 12:29 Albuterol/ Ipratropium (Albuterol/ Ipratropium) 3 ml Q6HRT HHN 02/26/19 13:00 03/03/19 12:59 03/01/19 06:43 Amlodipine Besylate (Norvasc) 10 mg DAILY NG 02/15/19 09:00 03/14/19 15:59 02/28/19 08:47 Artificial Tears (Lacri-Lube) 1 applic AC+HS BOTH EYES 02/18/19 06:30 03/20/19 06:29 03/01/19 06:02 Bisacodyl (Dulcolax) 5 mg DAILYPRN PRN ORAL Constipation 02/08/19 17:15 03/10/19 17:14 02/25/19 12:45 Cefepime HCl 1 gm/ Dextrose 55 ml @ 110 mls/hr Q24H IVPB 02/27/19 16:00 03/06/19 15:59 02/28/19 16:34 Chlorhexidine Gluconate (Jessy-Hex 2%) 1 applic DAILY@2000 TOPIC 02/25/19 20:00 03/27/19 19:59 02/28/19 21:02 Clindamycin HCl/ Dextrose 50 ml @ 100 mls/hr Q8HR IV 02/27/19 22:00 03/06/19 21:59 03/01/19 05:42 Clonidine HCl (Catapres Tab) 0.1 mg EVERY 12 HOURS NG 02/25/19 21:00 03/19/19 13:59 02/28/19 21:03 Dextrose (Dextrose 50%) 25 ml Q30M PRN IV Hypoglycemia 02/26/19 07:30 03/28/19 07:29 Dextrose (Dextrose 50%) 50 ml Q30M PRN IV Hypoglycemia 02/26/19 07:30 03/28/19 07:29 Docusate Sodium (Colace) 100 mg TID GT 02/12/19 18:00 03/12/19 08:59 02/28/19 18:04 Fentanyl Citrate 2500 mcg/Sodium Chloride 250 ml @ 0 mls/hr Q24H IV 02/23/19 20:30 03/02/19 20:29 03/01/19 01:32 Fluconazole/ Sodium Chloride 100 ml @ 100 mls/hr Q24H IV 02/26/19 18:00 03/05/19 17:59 02/28/19 18:04 Furosemide (Lasix) 40 mg DAILY IV 03/01/19 09:00 03/31/19 08:59 Guaifenesin (Mucinex ER) 600 mg TWICE A DAY ORAL 02/07/19 18:00 03/09/19 08:59 02/28/19 18:04 Heparin Sodium (Porcine) (Heparin 5000 units/ml) 5,000 units EVERY 12 HOURS SUBQ 02/26/19 21:00 03/28/19 20:59 02/28/19 21:05 Hydralazine HCl (Apresoline) 10 mg Q4H PRN IV bp over 165 syst 02/17/19 10:15 03/19/19 10:14 02/19/19 14:45 Hydralazine HCl (Apresoline) 50 mg Q8HR NG 02/22/19 14:00 03/21/19 21:59 03/01/19 05:37 Insulin Aspart (NovoLOG) EVERY 6 HOURS SUBQ 02/26/19 12:00 03/28/19 11:59 03/01/19 05:39 Isosorbide Dinitrate (Isordil) 20 mg Q6HR NG 02/22/19 12:00 03/15/19 12:59 03/01/19 05:38 Lorazepam (Ativan 2mg/ml 1ml) 2 mg Q2H PRN IV For Anxiety 02/27/19 13:48 03/06/19 13:47 02/28/19 05:34 Metoclopramide HCl (Reglan) 5 mg Q8H IVP 02/26/19 09:00 03/28/19 08:59 03/01/19 01:34 Metolazone (Zaroxolyn) 10 mg DAILY NG 02/19/19 10:00 03/21/19 09:59 02/28/19 08:46 Metoprolol Tartrate (Lopressor) 100 mg Q12HR ORAL 02/22/19 21:00 03/08/19 20:59 02/28/19 21:03 Midazolam HCl (Versed 2mg/2ml vial) 1 mg Q2H PRN IVP Agitation 02/13/19 08:45 03/15/19 08:44 02/27/19 11:05 Neomycin/ Polymyxin/ Dexamethasone (Maxitrol Opth Oint) 1 applic BEDTIME BOTH EYES 02/18/19 21:00 03/20/19 20:59 02/28/19 21:02 Nitroglycerin (Ntg) 0.4 mg Q5M PRN SL Prn Chest Pain 02/07/19 11:00 03/08/19 17:29 02/08/19 07:42 Ondansetron HCl (Zofran) 4 mg Q6H PRN IVP Nausea & Vomiting 02/07/19 11:15 03/08/19 11:14 02/09/19 00:58 Pantoprazole (Protonix) 40 mg DAILY IVP 02/26/19 09:00 03/24/19 20:59 02/28/19 08:46 Patient Own Medication (Patient's Own Med) 1 ea BID ORAL 02/07/19 18:00 03/09/19 17:59 02/28/19 18:05 Patient Own Medication (Patient's Own Med) 1 ea Q48H ORAL 02/18/19 09:00 03/20/19 08:59 02/28/19 08:48 Patient Own Medication (Patient's Own Med) 2 ea DAILY ORAL 02/08/19 09:00 03/10/19 08:59 02/28/19 08:48 Polyethylene Glycol (Miralax) 17 gm BEDTIME ORAL 02/08/19 21:00 03/10/19 20:59 02/28/19 21:04 Primaquine Phosphate (Primaquine) 26.3 mg DAILY ORAL 02/28/19 09:00 03/30/19 08:59 02/28/19 08:47 Sennosides (Senokot) 8.6 mg DAILY ORAL 02/13/19 12:00 03/15/19 11:59 02/28/19 08:46 Carlito Nichols MD Mar 01, 2019 07:01
--- NOTE | 2019-03-01 07:22 | NUR ---
HAND-OFF: Report given to TESSA Duval.
--- NOTE | 2019-03-01 07:23 | NUR ---
NURSE NOTES: Received change of shift report from Ray ZARATE. Pt is awake, restless, Propofol Drip has been placed on hold by night order selector RN in preparation for 0830 weaning by RT per MD instruction. Pt has bilateral soft wrist restraints in place to prevent self-extubation, as he is noted to move extremities and attempt to reach/pull ET tube. Pt withdraws to pain. Orally intubated ETT 7.5 at 24cm left lipline, AC24, FIO2 40%, Peep 5.0, VT550, with O2sat at 96%, and with bilateral rhonchi/rales on auscultation. form tamper displays NSR with heart rate in the 90's, and generalized including bilateral peripheral edema, with weak radial/pedal pulses on palpation. Central line IV access present on right upper arm PICC, currently TKO. Pt has left NGT in place, patent/intact, feeding is currently on hold in anticipation for weaning at 0830. Abdomen is large, round, moderately hard/nontender to touch with hypoactive bowel sounds present on all quadrants. Rectal tube is in place draining soft/liquid brown stool. Simon catheter is in place draining cloudy/dark scott urine with sediments. Pt has scrotal edema. Skin has mid-back small skin tear. Bilateral SCDs are present on lower extremities for DVT prophylaxis. Pt is on P200 mattress, with head of bed at 30degress, three side rails up, bed locked/in lowest position and call light within reach. Will continue to monitor pt and follow plan of care per MD orders and protocol.
--- NOTE | 2019-03-01 08:00 | General Progress Note ---
Assessment/Plan Status: stable Assessment/Plan: 1. History of HIV. 2. Hypertension. 3. Vertigo. 4. History of headaches. 5. History of diabetes. 6. Respiratory failure 7. Dysphagia 8. ileus stable H&H NGTF>>>on hold for extubation ppi fu H&H prn blood transfusion ppi low dose reglan Subjective ROS Limited/Unobtainable: No Allergies: Coded Allergies: No Known Allergies (Unverified , 02/05/13) Objective Last 24 Hour Vital Signs Date Time Temp Pulse Resp B/P (MAP) Pulse Ox O2 Delivery O2 Flow Rate FiO2 03/01/19 07:01 84 30 140/60 (86) 95 03/01/19 06:51 86 31 100 Mechanical Ventilator 40 03/01/19 06:43 86 34 94 Mechanical Ventilator 40 03/01/19 06:42 84 30 40 03/01/19 06:30 84 26 154/66 (95) 95 03/01/19 06:00 84 21 141/87 (105) 97 03/01/19 06:00 23 Mechanical Ventilator 40 03/01/19 05:38 150/67 03/01/19 05:37 150/67 03/01/19 05:30 84 23 150/67 (94) 97 03/01/19 05:00 26 Mechanical Ventilator 40 03/01/19 05:00 26 Mechanical Ventilator 40 03/01/19 05:00 83 25 143/60 (87) 96 03/01/19 04:57 84 25 40 03/01/19 04:30 84 22 140/54 (82) 97 03/01/19 04:00 24 Mechanical Ventilator 40 03/01/19 04:00 24 Mechanical Ventilator 40 03/01/19 04:00 Mechanical Ventilator 03/01/19 04:00 98.7 84 19 142/62 (88) 96 03/01/19 03:30 82 25 151/61 (91) 97 03/01/19 03:01 88 29 40 03/01/19 03:00 86 28 143/118 (126) 100 03/01/19 03:00 27 Mechanical Ventilator 40 03/01/19 02:30 83 17 146/117 (127) 92 03/01/19 02:00 83 22 137/68 (91) 95 03/01/19 02:00 24 Mechanical Ventilator 40 03/01/19 01:32 24 Mechanical Ventilator 40 03/01/19 01:30 82 25 145/59 (87) 97 03/01/19 01:21 82 30 100 Mechanical Ventilator 40 03/01/19 01:11 81 31 98 Mechanical Ventilator 40 03/01/19 01:10 83 31 40 03/01/19 01:00 82 146/55 (85) 96 03/01/19 01:00 24 Mechanical Ventilator 40 03/01/19 00:30 81 24 143/70 (94) 99 03/01/19 00:09 40 03/01/19 00:08 85 03/01/19 00:05 Mechanical Ventilator 03/01/19 00:00 98.4 78 24 150/61 (90) 94 03/01/19 00:00 24 Mechanical Ventilator 40 02/28/19 23:47 154/59 02/28/19 23:30 79 24 154/59 (90) 95 02/28/19 23:01 81 27 40 02/28/19 23:00 23 Mechanical Ventilator 40 02/28/19 23:00 78 25 151/59 (89) 100 02/28/19 22:30 78 23 143/56 (85) 93 02/28/19 22:00 25 Mechanical Ventilator 40 02/28/19 22:00 78 26 141/63 (89) 98 02/28/19 21:51 151/43 02/28/19 21:30 78 24 151/43 (79) 100 02/28/19 21:12 83 30 40 02/28/19 21:03 152/60 02/28/19 21:03 82 152/60 02/28/19 21:00 83 25 145/62 (89) 99 02/28/19 21:00 23 Mechanical Ventilator 40 02/28/19 20:30 80 22 152/60 (90) 100 02/28/19 20:00 82 02/28/19 20:00 Mechanical Ventilator 02/28/19 20:00 40 02/28/19 20:00 82 16 159/81 (107) 99 02/28/19 20:00 23 Mechanical Ventilator 40 02/28/19 19:45 80 22 153/60 (91) 98 02/28/19 19:35 79 24 100 Mechanical Ventilator 40 02/28/19 19:30 97.9 79 23 147/61 (89) 100 02/28/19 19:25 79 26 40 02/28/19 19:25 79 26 100 Mechanical Ventilator 40 02/28/19 19:15 78 19 153/63 (93) 97 02/28/19 19:00 79 20 153/58 (89) 100 02/28/19 19:00 26 Mechanical Ventilator 40 02/28/19 18:45 76 15 147/59 (88) 98 02/28/19 18:30 75 22 142/59 (86) 98 02/28/19 18:15 74 21 145/59 (87) 98 02/28/19 18:04 147/52 02/28/19 18:00 97.6 78 23 164/63 (96) 99 02/28/19 18:00 27 Mechanical Ventilator 40 02/28/19 17:30 74 21 156/59 (91) 98 02/28/19 17:03 72 29 40 02/28/19 17:00 20 Mechanical Ventilator 40 02/28/19 17:00 72 21 151/64 (93) 98 02/28/19 16:45 72 21 149/62 (91) 99 02/28/19 16:30 72 29 149/62 (91) 98 02/28/19 16:15 71 20 147/67 (93) 98 02/28/19 16:08 20 Mechanical Ventilator 40 02/28/19 16:00 97.5 70 21 147/67 (93) 98 02/28/19 16:00 Mechanical Ventilator 02/28/19 15:43 69 02/28/19 15:00 70 23 138/58 (84) 98 02/28/19 15:00 40 02/28/19 14:51 71 26 40 02/28/19 14:19 138/63 02/28/19 14:00 72 24 138/63 (88) 97 02/28/19 13:00 72 18 146/63 (90) 97 02/28/19 13:00 73 23 137/66 (89) 97 02/28/19 12:50 Mechanical Ventilator 02/28/19 12:40 72 25 98 Mechanical Ventilator 40 02/28/19 12:33 72 25 95 Mechanical Ventilator 40 02/28/19 12:33 71 25 02/28/19 12:08 142/63 02/28/19 12:00 Mechanical Ventilator 02/28/19 12:00 72 02/28/19 12:00 40 02/28/19 12:00 97.5 71 22 142/63 (89) 97 02/28/19 11:00 72 18 146/63 (90) 97 02/28/19 10:30 71 20 149/57 (87) 97 02/28/19 10:21 73 23 40 02/28/19 10:20 40 02/28/19 10:15 73 20 139/64 (89) 99 02/28/19 10:00 71 15 139/64 (89) 98 02/28/19 10:00 76 19 134/79 (97) 98 02/28/19 09:45 71 19 139/64 (89) 97 02/28/19 09:30 73 22 138/51 (80) 96 02/28/19 09:15 77 18 134/79 (97) 98 02/28/19 09:01 141/121 02/28/19 09:00 18 Mechanical Ventilator 40 02/28/19 09:00 76 19 134/79 (97) 98 02/28/19 08:47 77 141/121 02/28/19 08:47 77 141/121 02/28/19 08:45 77 16 141/121 (128) 98 02/28/19 08:39 75 32 40 02/28/19 08:30 76 20 141/121 (128) 97 02/28/19 08:30 18 Mechanical Ventilator 40 02/28/19 08:30 76 20 141/121 (128) 97 02/28/19 08:15 78 18 143/68 (93) 98 02/28/19 08:00 40 02/28/19 08:00 Mechanical Ventilator 02/28/19 08:00 18 Mechanical Ventilator 40 02/28/19 08:00 77 17 143/68 (93) 98 Intake and Output 02/28/19 03/01/19 19:00 07:00 Intake Total 624.5 ml 870 ml Output Total 2070 ml 1250 ml Balance -1445.5 ml -380 ml IV Total 266.5 ml 440 ml Tube Feeding 258 ml 430 ml Other 100 ml Output Urine Total 2070 ml 1150 ml Stool Total 100 ml # Bowel Movements 30 Laboratory Tests 03/01/19 05:26: White Blood Count 4.2L, Red Blood Count 2.82L, Hemoglobin 8.1L, Hematocrit 24.8L , Mean Corpuscular Volume 88, Mean Corpuscular Hemoglobin 28.6, Mean Corpuscular Hemoglobin Concent 32.6, Red Cell Distribution Width 16.8H, Platelet Count 104L, Mean Platelet Volume 6.1L, Neutrophils (%) (Auto) , Lymphocytes (%) (Auto) , Monocytes (%) (Auto) , Eosinophils (%) (Auto) , Basophils (%) (Auto) , Neutrophils % (Manual) [Pending], Lymphocytes % (Manual) [Pending], Platelet Estimate [Pending], Platelet Morphology [Pending], Sodium Level 136, Potassium Level 3.5, Chloride Level 102, Carbon Dioxide Level 22, Anion Gap 12, Blood Urea Nitrogen 66H, Creatinine 2.6H, Estimat Glomerular Filtration Rate 25.4, Glucose Level 215H, Uric Acid 5.2, Calcium Level 8.7, Phosphorus Level 3.3, Magnesium Level 2.3, Total Bilirubin 0.4, Gamma Glutamyl Transpeptidase 165H, Aspartate Amino Transf (AST/SGOT) 59H, Alanine Aminotransferase (ALT/SGPT) 51, Alkaline Phosphatase 129H, C-Reactive Protein, Quantitative 8.3H, Pro-B-Type Natriuretic Peptide 01002G, Total Protein 5.5L, Albumin 2.4L, Globulin 3.1, Albumin/Globulin Ratio 0.8L Height (Feet): 6 Height (Inches): 0.00 Weight (Pounds): 268 General Appearance: no apparent distress EENT: PERRL/EOMI Neck: supple Cardiovascular: normal rate Respiratory/Chest: decreased breath sounds Abdomen: normal bowel sounds, non tender, soft Extremities: non-tender Kg Ricketts MD Mar 01, 2019 08:00
[2019-03-01] MEDS: Pantoprazole Inj IVP SCH (08:43)
[2019-03-01] MEDS: Docusate 100mg/10ml Liq GT SCH ×3 (08:43→18:25)
[2019-03-01] MEDS: Sennosides 8.6mg tab ORAL SCH (08:44)
[2019-03-01] MEDS: guaiFENesin ER 600mg tab ORAL SCH ×2 (08:44→18:25)
--- NOTE | 2019-03-01 08:45 | NUR ---
RESPIRATORY NOTE: Placed pt on CPAP PS 8 peep 5, 40%FiO2 per Dr. Yan's order. First pt was tolerating well but then pt started getting more agitated, desaturated down to 86%, accessory muscle used, shallow breathing, SOB. 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 Placed pt back on AC mode with the same previous settings at 0845. TESSA Duval at bedside and made aware. Pt saturates back to 93%, RR 29bpm, still agitated. Will continue to monitor pt.
--- NOTE | 2019-03-01 08:45 | NUR ---
NURSE NOTES: Pt has been placed back on Fentanyl drip currently at 100mcg/hour, as pt is very restless/agitated, moving his extremities, throwing pillow on the floor, attempting to lift upper body, and reach for ET tube. Weaning was attempted by RT at 0830, pt tolerated only 10 minutes, desaturated from 100% to 86%, Resp rate increased to upper 30's. VS now stabilizes, while pt switched back to AC vent settings.
[2019-03-01] MEDS: RALTEGRAVIR 400 MG ORAL SCH ×2 (08:47→18:25)
[2019-03-01] MEDS: ETRAVIRINE 200 MG ORAL SCH (08:47)
[2019-03-01] MEDS: Heparin 5000 units/ml inj SUBQ SCH ×2 (08:48→20:45)
[2019-03-01] MEDS: Primaquine 26.3mg(=15mg base) Tab ORAL SCH (08:48)
--- NOTE | 2019-03-01 09:00 | NUR ---
NURSE NOTES: Fentanyl drip has been increased to 200mcg/hr to maintain RASS score of -2 light sedation. NG feeding has been resumed as goal rate of 43ml/hour. Pt is tolerating feeding well with no residual. Oral care done. Pt suctioned, small output of clear secretion noted.
--- NOTE | 2019-03-01 09:30 | NUR ---
NURSE NOTES: Pt was seen by Dr Mcdonald. No new orders at this time.
--- NOTE | 2019-03-01 09:45 | NUR ---
RD ASSESSMENT & RECOMMENDATIONS SEE CARE ACTIVITY FOR COMPLETE ASSESSMENT DAILY ESTIMATED NEEDS: Needs based on Critical care, HIV 85kg adj 22-30 kcals/kg 4014-8440 total kcals 1.2-2 g protein/kg 102-170 g total protein 25-30 mL/kg 3791-8678 total fluid mLs NUTRITION DIAGNOSIS: *Swallowing difficulty r/t respiratory status as evidenced by pt on bipap, desat to 78%, critical ABG results, now orally intubated, ICU status. * Altered nutrition related lab values R/T clinical condition, ISH, DM as evidenced by elev K (5.8- now wnl->5.5 -> wnl), elev creat (1.5->3.9->2.6, elev phos (5.5-> wnl), A1C 7.0. CURRENT TF:Nepro @ 43ml/hr x 24 hrs -> held for weaning at this time PO DIET RECOMMENDATIONS: CRAYON SAWYER evaluation post extubation ENTERAL NUTRITION RECOMMENDATIONS: Nepro @ 43ml/hr x 24 hrs + Prosource 1pkt BID to provide 1032ml, 1857 kcal (+80 kcal), 83g prot (+22g prot), 750ml free water - Add Prosource 1pkt BID for additional 80kcal/22g prot to meet 100% est kcal/prot needs - Flush per MD/ HOB over 30 degrees. ADDITIONAL RECOMMENDATIONS: 1) CALIBRATED BEDSCALE WT, weeklye wts 2) Monitor renal fxn, K and Phos- K and phos now wnl, renal fxn improved. -> continue Nepro at this timeto keep lytes under control 3) Monitor TF tolerance -> Now on reglan 4) Pt w/ rectal tube: rec to hold all stool softeners (miralax, colace TID, senekot -> last given 03/01) .
--- NOTE | 2019-03-01 10:00 | NUR ---
NURSE NOTES: Fentanyl drip is maintained at 200mcg/hr to maintain RASS score of -2 light sedation. VS stable.
[2019-03-01] MEDS: Levemir Flexpen SUBQ SCH (10:08)
--- NOTE | 2019-03-01 10:32 | Hematology/Onc Progress Note ---
Assessment/Plan Assessment/Plan ASSESSMENT AND RECOMMENDATIONS # Pancytopenia with all three cell lines have, decreasing counts could also be due to underlying hiv meds --> in addition, he did Have bleeding on admission, HIV is ++ on admission --> Anemia workup has been reviewed. Ferritin 182 --> No evidence of hemolysis is noted, peripheral smear has been reviewed. --> Hgb goal >7. Transfuse prn. --> Epogen or iron at this time is not particularly indicated --> Medications have been reviewed --> Stool OB negative --> Blood tx: 1 unit on 02/10/19, --> off ASA, off heparin, off lovenox --> Hgb trend: 7.6-->8.2-->9.4-->8.4-->8.2 -->8.9-->10.3->7.9-->8.1->7.8-->8.7-- >8.4-->8.1 # Thrombocytopenia - potential causes multifactorial, likely related to HIV status --> Hep panel pending and HIV confirmed positive --> US abd tdoes not show cirrhosis/hsm --> Peripheral smear ordered to evaluate for blasts /schistocytes does not show any --> abx and other meds have been reviewed --> ok for ppx if plt >50k w/ either heparin or lovenox --> Transfuse if Plt < 20k and fever, or if Plt < 10k without fever --> Plt trend: 153-->257-->224-->205-->253-->310-->201->177-->115-->104 --> WILLIAM screen negative # Multilobar pneumonia in patient with HIV. Recs per ID. --> Broad sp atbx started. Continue Zosyn, Vancomycin and Azithromycin --> Droplet precaution # Hypoxemic respiratory failure. Pulm is following, appreciate recs. --> Bipap as needed, transition to O2 via NC when able --> Due to pneumonia, on abx --> now intubated 02/20 --> may need trach if fails breathing trial # Chest pain. 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 --> Trend troponin x3 --> NGT prn # HIV. --> Continue HARRT --> VL is undetectable per patient report. # HTN --> Resume home medication # DVT and GI ppx The time the note is entered does not reflect the time the patient was examined. I greatly appreciate the consultation. Subjective HEENT: Denies: no symptoms, eye pain, blurred vision, tearing, double vision, ear pain, ear discharge, nose pain, nose congestion, throat pain, throat swelling, mouth pain, mouth swelling, other Cardiovascular: Denies: no symptoms, chest pain, edema, irregular heart rate, lightheadedness, palpitations, syncope, other Respiratory: Denies: no symptoms, cough, shortness of breath, SOB with excertion, SOB at rest, sputum, wheezing, other Genitourinary: Denies: no symptoms, burning, discharge, frequency, flank pain, hematuria, incontinence, pain, urgency, other Neurologic/Psychiatric: Denies: no symptoms, anxiety, depressed, emotional problems, headache, numbness, paresthesia, pre-existing deficit, seizure, tingling, tremors, weakness, other Endocrine: Denies: no symptoms, excessive sweating, flushing, intolerance to cold, intolerance to heat, increased hunger, increased thirst, increased urine, unexplained weight gain, unexplained weight loss, other Hematologic/Lymphatic: Denies: no symptoms, anemia, easy bleeding, easy bruising, adenopathy, other Allergies: Coded Allergies: No Known Allergies (Unverified , 02/05/13) Subjective Subjective 02/11: Hgb yesterday was 7.6, s/p 1 unit prbc. Current hgb at 8.2. Pt attempted to pull out tubes per nursing team, soft restraints applied. 02/13: Pt in ICU and intubated. Pt currently sedated. Current hgb 9.4. 02/14: Pt remains in icu, sedated. Hgb stable. 02/15: Remains in icu, lethargic. No acute events. Hgb stable. 02/16: Remains in icu. CXR today shows worsening CHF/pulmonary edema. Pt wake and sedation decrease for weaning. 02/18: Remains in icu. Pt on vent. CXR today shows pulmonary edema, persistent small left pleural effusion. 02/19: Remains in the icu, now extubated, seen by pulm, labs reviewed 02/20: Remains in ICU, Pt intubated, CXR today shows Congestive heart failure with interval worsening 02/21: reintubated, tolerating vent well, seen by pulm/cc 02/23: pt remains on fently gtt, prn ativan, currenlty intubated on vent, no further bleeding, d/w RN> 02/24:failed weaning, fentanyl drip decreased. 02/25:pt seen in am,sedated. 02/27: remains intubated, may need trach, nobleeding today 02/28: tolerated cpap, now back on vent, no bleeding off asa/lovenox 03/01: fentanyl gtt is now off, remains in icu, dw rn Objective Objective Current Medications Medications (Trade) Dose Ordered Sig/Marquis Route PRN Reason Start Time Stop Time Status Last Admin Dose Admin Acetaminophen (Tylenol) 650 mg Q4H PRN ORAL Mild Pain (Pain Scale 1-3) 02/07/19 11:15 03/08/19 17:29 02/22/19 14:37 Acetaminophen/ Butalbital/ Caffeine (Fioricet) 1 tab Q8H PRN ORAL For Headache 02/08/19 17:15 03/10/19 17:14 Albuterol/ Ipratropium (Albuterol/ Ipratropium) 3 ml Q4H PRN HHN Shortness of Breath 02/26/19 12:30 03/03/19 12:29 Albuterol/ Ipratropium (Albuterol/ Ipratropium) 3 ml Q6HRT HHN 02/26/19 13:00 03/03/19 12:59 03/01/19 06:43 Amlodipine Besylate (Norvasc) 10 mg DAILY NG 02/15/19 09:00 03/14/19 15:59 03/01/19 08:45 Artificial Tears (Lacri-Lube) 1 applic AC+HS BOTH EYES 02/18/19 06:30 03/20/19 06:29 03/01/19 06:02 Bisacodyl (Dulcolax) 5 mg DAILYPRN PRN ORAL Constipation 02/08/19 17:15 03/10/19 17:14 02/25/19 12:45 Cefepime HCl 1 gm/ Dextrose 55 ml @ 110 mls/hr Q24H IVPB 02/27/19 16:00 03/06/19 15:59 02/28/19 16:34 Chlorhexidine Gluconate (Jessy-Hex 2%) 1 applic DAILY@2000 TOPIC 02/25/19 20:00 03/27/19 19:59 02/28/19 21:02 Clindamycin HCl/ Dextrose 50 ml @ 100 mls/hr Q8HR IV 02/27/19 22:00 03/06/19 21:59 03/01/19 05:42 Clonidine HCl (Catapres Tab) 0.1 mg EVERY 12 HOURS NG 02/25/19 21:00 03/19/19 13:59 03/01/19 08:45 Dextrose (Dextrose 50%) 25 ml Q30M PRN IV Hypoglycemia 03/01/19 07:15 03/31/19 07:14 Dextrose (Dextrose 50%) 50 ml Q30M PRN IV Hypoglycemia 03/01/19 07:15 03/31/19 07:14 Docusate Sodium (Colace) 100 mg TID GT 02/12/19 18:00 03/12/19 08:59 03/01/19 08:43 Fentanyl Citrate 2500 mcg/Sodium Chloride 250 ml @ 0 mls/hr Q24H IV 02/23/19 20:30 03/02/19 20:29 03/01/19 01:32 Fluconazole/ Sodium Chloride 100 ml @ 100 mls/hr Q24H IV 02/26/19 18:00 03/05/19 17:59 02/28/19 18:04 Furosemide (Lasix) 40 mg DAILY IV 03/01/19 09:00 03/31/19 08:59 03/01/19 08:44 Guaifenesin (Mucinex ER) 600 mg TWICE A DAY ORAL 02/07/19 18:00 03/09/19 08:59 03/01/19 08:44 Heparin Sodium (Porcine) (Heparin 5000 units/ml) 5,000 units EVERY 12 HOURS SUBQ 02/26/19 21:00 03/28/19 20:59 02/28/19 21:05 Hydralazine HCl (Apresoline) 10 mg Q4H PRN IV bp over 165 syst 02/17/19 10:15 03/19/19 10:14 02/19/19 14:45 Hydralazine HCl (Apresoline) 50 mg Q8HR NG 02/22/19 14:00 03/21/19 21:59 03/01/19 05:37 Insulin Aspart (NovoLOG) EVERY 6 HOURS SUBQ 02/26/19 12:00 03/28/19 11:59 03/01/19 05:39 Insulin Detemir (Levemir) 6 units DAILY SUBQ 03/01/19 09:00 03/31/19 08:59 03/01/19 10:08 Isosorbide Dinitrate (Isordil) 20 mg Q6HR NG 02/22/19 12:00 03/15/19 12:59 03/01/19 05:38 Lorazepam (Ativan 2mg/ml 1ml) 2 mg Q2H PRN IV For Anxiety 02/27/19 13:48 03/06/19 13:47 02/28/19 05:34 Metoclopramide HCl (Reglan) 5 mg Q8H IVP 02/26/19 09:00 03/28/19 08:59 03/01/19 08:43 Metolazone (Zaroxolyn) 10 mg DAILY NG 02/19/19 10:00 03/21/19 09:59 03/01/19 08:45 Metoprolol Tartrate (Lopressor) 100 mg Q12HR ORAL 02/22/19 21:00 03/08/19 20:59 03/01/19 08:45 Midazolam HCl (Versed 2mg/2ml vial) 1 mg Q2H PRN IVP Agitation 02/13/19 08:45 03/15/19 08:44 02/27/19 11:05 Neomycin/ Polymyxin/ Dexamethasone (Maxitrol Opth Oint) 1 applic BEDTIME BOTH EYES 02/18/19 21:00 03/20/19 20:59 02/28/19 21:02 Nitroglycerin (Ntg) 0.4 mg Q5M PRN SL Prn Chest Pain 02/07/19 11:00 03/08/19 17:29 02/08/19 07:42 Ondansetron HCl (Zofran) 4 mg Q6H PRN IVP Nausea & Vomiting 02/07/19 11:15 03/08/19 11:14 02/09/19 00:58 Pantoprazole (Protonix) 40 mg DAILY IVP 02/26/19 09:00 03/24/19 20:59 03/01/19 08:43 Patient Own Medication (Patient's Own Med) 1 ea BID ORAL 02/07/19 18:00 03/09/19 17:59 03/01/19 08:47 Patient Own Medication (Patient's Own Med) 1 ea Q48H ORAL 02/18/19 09:00 03/20/19 08:59 02/28/19 08:48 Patient Own Medication (Patient's Own Med) 2 ea DAILY ORAL 02/08/19 09:00 03/10/19 08:59 03/01/19 08:47 Polyethylene Glycol (Miralax) 17 gm BEDTIME ORAL 02/08/19 21:00 03/10/19 20:59 02/28/19 21:04 Primaquine Phosphate (Primaquine) 26.3 mg DAILY ORAL 02/28/19 09:00 03/30/19 08:59 03/01/19 08:48 Sennosides (Senokot) 8.6 mg DAILY ORAL 02/13/19 12:00 03/15/19 11:59 03/01/19 08:44 Last 24 Hour Vital Signs Date Time Temp Pulse Resp B/P (MAP) Pulse Ox O2 Delivery O2 Flow Rate FiO2 03/01/19 08:45 140/60 03/01/19 08:45 84 140/60 03/01/19 08:45 84 140/60 03/01/19 08:45 97 29 40 03/01/19 08:35 91 34 40 03/01/19 08:35 100 03/01/19 08:00 40 03/01/19 07:01 84 30 140/60 (86) 95 03/01/19 06:51 86 31 100 Mechanical Ventilator 40 03/01/19 06:43 86 34 94 Mechanical Ventilator 40 03/01/19 06:42 84 30 40 03/01/19 06:30 84 26 154/66 (95) 95 03/01/19 06:00 84 21 141/87 (105) 97 03/01/19 06:00 23 Mechanical Ventilator 40 03/01/19 05:38 150/67 03/01/19 05:37 150/67 03/01/19 05:30 84 23 150/67 (94) 97 03/01/19 05:00 26 Mechanical Ventilator 40 03/01/19 05:00 26 Mechanical Ventilator 40 03/01/19 05:00 83 25 143/60 (87) 96 03/01/19 04:57 84 25 40 03/01/19 04:30 84 22 140/54 (82) 97 03/01/19 04:00 24 Mechanical Ventilator 40 03/01/19 04:00 24 Mechanical Ventilator 40 03/01/19 04:00 Mechanical Ventilator 03/01/19 04:00 98.7 84 19 142/62 (88) 96 03/01/19 03:30 82 25 151/61 (91) 97 03/01/19 03:01 88 29 40 03/01/19 03:00 86 28 143/118 (126) 100 03/01/19 03:00 27 Mechanical Ventilator 40 03/01/19 02:30 83 17 146/117 (127) 92 03/01/19 02:00 83 22 137/68 (91) 95 03/01/19 02:00 24 Mechanical Ventilator 40 03/01/19 01:32 24 Mechanical Ventilator 40 03/01/19 01:30 82 25 145/59 (87) 97 03/01/19 01:21 82 30 100 Mechanical Ventilator 40 03/01/19 01:11 81 31 98 Mechanical Ventilator 40 03/01/19 01:10 83 31 40 03/01/19 01:00 82 146/55 (85) 96 03/01/19 01:00 24 Mechanical Ventilator 40 03/01/19 00:30 81 24 143/70 (94) 99 03/01/19 00:09 40 03/01/19 00:08 85 03/01/19 00:05 Mechanical Ventilator 03/01/19 00:00 98.4 78 24 150/61 (90) 94 03/01/19 00:00 24 Mechanical Ventilator 40 02/28/19 23:47 154/59 02/28/19 23:30 79 24 154/59 (90) 95 02/28/19 23:01 81 27 40 02/28/19 23:00 23 Mechanical Ventilator 40 02/28/19 23:00 78 25 151/59 (89) 100 02/28/19 22:30 78 23 143/56 (85) 93 02/28/19 22:00 25 Mechanical Ventilator 40 02/28/19 22:00 78 26 141/63 (89) 98 02/28/19 21:51 151/43 02/28/19 21:30 78 24 151/43 (79) 100 02/28/19 21:12 83 30 40 02/28/19 21:03 152/60 02/28/19 21:03 82 152/60 02/28/19 21:00 83 25 145/62 (89) 99 02/28/19 21:00 23 Mechanical Ventilator 40 02/28/19 20:30 80 22 152/60 (90) 100 02/28/19 20:00 82 02/28/19 20:00 Mechanical Ventilator 02/28/19 20:00 40 02/28/19 20:00 82 16 159/81 (107) 99 02/28/19 20:00 23 Mechanical Ventilator 40 02/28/19 19:45 80 22 153/60 (91) 98 02/28/19 19:35 79 24 100 Mechanical Ventilator 40 02/28/19 19:30 97.9 79 23 147/61 (89) 100 02/28/19 19:25 79 26 40 02/28/19 19:25 79 26 100 Mechanical Ventilator 40 02/28/19 19:15 78 19 153/63 (93) 97 02/28/19 19:00 79 20 153/58 (89) 100 02/28/19 19:00 26 Mechanical Ventilator 40 02/28/19 18:45 76 15 147/59 (88) 98 02/28/19 18:30 75 22 142/59 (86) 98 02/28/19 18:15 74 21 145/59 (87) 98 02/28/19 18:04 147/52 02/28/19 18:00 97.6 78 23 164/63 (96) 99 02/28/19 18:00 27 Mechanical Ventilator 40 02/28/19 17:30 74 21 156/59 (91) 98 02/28/19 17:03 72 29 40 02/28/19 17:00 20 Mechanical Ventilator 40 02/28/19 17:00 72 21 151/64 (93) 98 02/28/19 16:45 72 21 149/62 (91) 99 02/28/19 16:30 72 29 149/62 (91) 98 02/28/19 16:15 71 20 147/67 (93) 98 02/28/19 16:08 20 Mechanical Ventilator 40 02/28/19 16:00 97.5 70 21 147/67 (93) 98 02/28/19 16:00 Mechanical Ventilator 02/28/19 15:43 69 02/28/19 15:00 70 23 138/58 (84) 98 02/28/19 15:00 40 02/28/19 14:51 71 26 40 02/28/19 14:19 138/63 02/28/19 14:00 72 24 138/63 (88) 97 02/28/19 13:00 72 18 146/63 (90) 97 02/28/19 13:00 73 23 137/66 (89) 97 02/28/19 12:50 Mechanical Ventilator 02/28/19 12:40 72 25 98 Mechanical Ventilator 40 02/28/19 12:33 72 25 95 Mechanical Ventilator 40 02/28/19 12:33 71 25 02/28/19 12:08 142/63 02/28/19 12:00 Mechanical Ventilator 02/28/19 12:00 72 02/28/19 12:00 40 02/28/19 12:00 97.5 71 22 142/63 (89) 97 02/28/19 11:00 72 18 146/63 (90) 97 02/28/19 10:30 71 20 149/57 (87) 97 02/28/19 10:21 73 23 40 02/28/19 10:20 40 02/28/19 10:15 73 20 139/64 (89) 99 02/28/19 10:00 71 15 139/64 (89) 98 02/28/19 10:00 76 19 134/79 (97) 98 02/28/19 09:45 71 19 139/64 (89) 97 02/28/19 09:30 73 22 138/51 (80) 96 02/28/19 09:15 77 18 134/79 (97) 98 02/28/19 09:01 141/121 02/28/19 09:00 18 Mechanical Ventilator 40 02/28/19 09:00 76 19 134/79 (97) 98 02/28/19 08:47 77 141/121 02/28/19 08:47 77 141/121 02/28/19 08:45 77 16 141/121 (128) 98 02/28/19 08:39 75 32 40 02/28/19 08:30 76 20 141/121 (128) 97 02/28/19 08:30 18 Mechanical Ventilator 40 02/28/19 08:30 76 20 141/121 (128) 97 02/28/19 08:15 78 18 143/68 (93) 98 02/28/19 08:00 40 02/28/19 08:00 Mechanical Ventilator 02/28/19 08:00 18 Mechanical Ventilator 40 02/28/19 08:00 77 17 143/68 (93) 98 02/28/19 07:30 75 19 144/66 (92) 98 02/28/19 07:28 74 02/28/19 07:10 75 33 98 Mechanical Ventilator 40 02/28/19 07:04 76 31 40 02/28/19 07:03 77 29 98 Mechanical Ventilator 40 02/28/19 07:00 97.5 76 18 148/60 (89) 97 02/28/19 07:00 18 Mechanical Ventilator 40 02/28/19 06:00 24 Mechanical Ventilator 40 02/28/19 06:00 75 24 126/61 (82) 96 02/28/19 05:32 152/59 02/28/19 05:32 152/59 02/28/19 05:30 75 24 152/63 (92) 96 02/28/19 05:12 75 30 40 40 02/28/19 05:00 75 24 152/59 (90) 95 02/28/19 05:00 24 Mechanical Ventilator 40 02/28/19 04:30 76 24 144/68 (93) 94 02/28/19 04:00 73 02/28/19 04:00 40 02/28/19 04:00 24 Mechanical Ventilator 40 02/28/19 04:00 99.2 76 21 150/71 (97) 92 02/28/19 04:00 Mechanical Ventilator 02/28/19 03:30 77 24 148/61 (90) 93 02/28/19 03:28 78 24 143/69 (93) 100 02/28/19 03:00 78 24 151/88 (109) 94 02/28/19 03:00 24 Non-Rebreather 40 02/28/19 02:54 88 24 40 40 02/28/19 02:30 78 24 145/70 (95) 94 02/28/19 02:00 84 24 137/63 (87) 99 02/28/19 02:00 24 Mechanical Ventilator 40 02/28/19 01:32 72 24 100 Mechanical Ventilator 40 02/28/19 01:30 87 24 144/69 (94) 99 02/28/19 01:22 92 25 95 Mechanical Ventilator 40 02/28/19 01:21 92 25 40 40 02/28/19 01:00 24 Mechanical Ventilator 40 02/28/19 01:00 79 24 138/66 (90) 96 02/28/19 00:54 157/64 02/28/19 00:30 79 24 139/63 (88) 96 02/28/19 00:00 79 02/28/19 00:00 24 Mechanical Ventilator 40 02/28/19 00:00 Mechanical Ventilator 02/28/19 00:00 40 02/28/19 00:00 99.5 78 24 133/75 (94) 95 02/27/19 23:30 78 24 138/58 (84) 94 02/27/19 23:00 79 24 128/76 (93) 99 02/27/19 23:00 24 Mechanical Ventilator 40 02/27/19 22:48 79 24 40 40 02/27/19 22:30 80 24 147/60 (89) 95 02/27/19 22:00 24 Mechanical Ventilator 40 02/27/19 22:00 82 24 157/64 (95) 94 02/27/19 21:30 78 24 154/60 (91) 98 02/27/19 21:17 81 24 40 40 02/27/19 21:00 81 24 152/62 (92) 98 02/27/19 21:00 24 Mechanical Ventilator 40 02/27/19 20:59 82 142/57 02/27/19 20:58 142/57 02/27/19 20:58 142/57 02/27/19 20:30 74 24 142/57 (85) 99 02/27/19 20:00 Mechanical Ventilator 02/27/19 20:00 99.1 77 24 153/56 (88) 99 02/27/19 20:00 82 02/27/19 20:00 24 Mechanical Ventilator 40 02/27/19 20:00 40 02/27/19 19:40 76 24 100 Mechanical Ventilator 40 02/27/19 19:30 79 24 155/60 (91) 97 02/27/19 19:28 78 22 40 40 02/27/19 19:28 78 22 97 Mechanical Ventilator 40 02/27/19 19:21 24 Mechanical Ventilator 40 02/27/19 19:00 76 24 151/54 (86) 98 02/27/19 19:00 25 Mechanical Ventilator 40 02/27/19 18:30 7 24 149/60 (89) 98 02/27/19 18:00 74 24 145/55 (85) 98 02/27/19 18:00 25 Mechanical Ventilator 40 02/27/19 17:45 73 24 145/59 (87) 98 02/27/19 17:40 145/59 02/27/19 17:30 74 25 145/59 (87) 98 02/27/19 17:15 75 24 145/59 (87) 98 02/27/19 17:00 75 25 138/61 (86) 98 02/27/19 17:00 24 Mechanical Ventilator 40 02/27/19 17:00 75 24 40 02/27/19 16:58 28 Mechanical Ventilator 40 02/27/19 16:00 70 02/27/19 16:00 Mechanical Ventilator 02/27/19 16:00 98.1 73 21 138/58 (84) 98 02/27/19 16:00 24 Mechanical Ventilator 40 02/27/19 16:00 40 02/27/19 15:00 71 26 143/58 (86) 98 02/27/19 15:00 26 Mechanical Ventilator 40 02/27/19 14:59 71 27 40 02/27/19 14:00 69 24 140/61 (87) 98 02/27/19 14:00 24 Mechanical Ventilator 40 02/27/19 13:46 141/57 02/27/19 13:17 69 27 40 02/27/19 13:06 Mechanical Ventilator 40 02/27/19 13:06 Mechanical Ventilator 40 02/27/19 13:00 24 Mechanical Ventilator 40 02/27/19 13:00 68 25 141/57 (85) 98 02/27/19 12:09 140/74 02/27/19 12:00 98.6 67 28 140/74 (96) 99 02/27/19 12:00 40 02/27/19 12:00 25 Mechanical Ventilator 40 02/27/19 12:00 68 02/27/19 12:00 Mechanical Ventilator 02/27/19 11:00 71 29 40 02/27/19 11:00 69 28 125/77 (93) 98 02/27/19 11:00 24 Mechanical Ventilator 40 Intake and Output 02/28/19 03/01/19 19:00 07:00 Intake Total 624.5 ml 870 ml Output Total 2070 ml 1250 ml Balance -1445.5 ml -380 ml IV Total 266.5 ml 440 ml Tube Feeding 258 ml 430 ml Other 100 ml Output Urine Total 2070 ml 1150 ml Stool Total 100 ml # Bowel Movements 30 Labs Test 02/26/19 12:40 02/26/19 14:42 02/27/19 04:30 02/28/19 04:30 Arterial Blood pH 7.374 (7.350-7.450) Arterial Blood Partial Pressure CO2 34.7 mmHg (35.0-45.0) Arterial Blood Partial Pressure O2 95.3 mmHg (75.0-100.0) Arterial Blood HCO3 19.8 mmol/L (22.0-26.0) Arterial Blood Oxygen Saturation 96.6 % (95-100) Arterial Blood Base Excess -4.9 (-2-2) Benny Test Positive Stool Occult Blood Positive (NEGATIVE) White Blood Count 7.2 K/UL (4.8-10.8) 5.0 K/UL (4.8-10.8) Red Blood Count 3.06 M/UL (4.70-6.10) 2.91 M/UL (4.70-6.10) Hemoglobin 8.7 G/DL (14.2-18.0) 8.4 G/DL (14.2-18.0) Hematocrit 27.0 % (42.0-52.0) 25.8 % (42.0-52.0) Mean Corpuscular Volume 88 FL (80-99) 89 FL (80-99) Mean Corpuscular Hemoglobin 28.6 PG (27.0-31.0) 28.8 PG (27.0-31.0) Mean Corpuscular Hemoglobin Concent 32.4 G/DL (32.0-36.0) 32.5 G/DL (32.0-36.0) Red Cell Distribution Width 17.0 % (11.6-14.8) 17.1 % (11.6-14.8) Platelet Count 177 K/UL (150-450) 115 K/UL (150-450) Mean Platelet Volume 6.8 FL (6.5-10.1) 6.2 FL (6.5-10.1) Neutrophils (%) (Auto) 76.8 % (45.0-75.0) 84.6 % (45.0-75.0) Lymphocytes (%) (Auto) 10.7 % (20.0-45.0) 6.1 % (20.0-45.0) Monocytes (%) (Auto) 11.0 % (1.0-10.0) 8.2 % (1.0-10.0) Eosinophils (%) (Auto) 1.2 % (0.0-3.0) 0.8 % (0.0-3.0) Basophils (%) (Auto) 0.4 % (0.0-2.0) 0.3 % (0.0-2.0) Sodium Level 134 MMOL/L (136-145) 132 MMOL/L (136-145) Potassium Level 5.1 MMOL/L (3.5-5.1) 4.1 MMOL/L (3.5-5.1) Chloride Level 100 MMOL/L (98-107) 99 MMOL/L (98-107) Carbon Dioxide Level 21 MMOL/L (21-32) 21 MMOL/L (21-32) Anion Gap 13 mmol/L (5-15) 12 mmol/L (5-15) Blood Urea Nitrogen 73 mg/dL (7-18) 74 mg/dL (7-18) Creatinine 3.3 MG/DL (0.55-1.30) 3.2 MG/DL (0.55-1.30) Estimat Glomerular Filtration Rate 19.3 mL/min (>60) 20.0 mL/min (>60) Glucose Level 151 MG/DL (74-106) 167 MG/DL (74-106) Calcium Level 8.2 MG/DL (8.5-10.1) 8.3 MG/DL (8.5-10.1) Total Bilirubin 0.3 MG/DL (0.2-1.0) 0.4 MG/DL (0.2-1.0) Aspartate Amino Transf (AST/SGOT) 63 U/L (15-37) 67 U/L (15-37) Alanine Aminotransferase (ALT/SGPT) 54 U/L (12-78) 51 U/L (12-78) Alkaline Phosphatase 113 U/L (46-116) 130 U/L (46-116) Total Protein 5.8 G/DL (6.4-8.2) 5.5 G/DL (6.4-8.2) Albumin 2.4 G/DL (3.4-5.0) 2.5 G/DL (3.4-5.0) Globulin 3.4 g/dL 3.0 g/dL Albumin/Globulin Ratio 0.7 (1.0-2.7) 0.8 (1.0-2.7) Test 03/01/19 05:26 White Blood Count 4.2 K/UL (4.8-10.8) Red Blood Count 2.82 M/UL (4.70-6.10) Hemoglobin 8.1 G/DL (14.2-18.0) Hematocrit 24.8 % (42.0-52.0) Mean Corpuscular Volume 88 FL (80-99) Mean Corpuscular Hemoglobin 28.6 PG (27.0-31.0) Mean Corpuscular Hemoglobin Concent 32.6 G/DL (32.0-36.0) Red Cell Distribution Width 16.8 % (11.6-14.8) Platelet Count 104 K/UL (150-450) Mean Platelet Volume 6.1 FL (6.5-10.1) Neutrophils (%) (Auto) % (45.0-75.0) Lymphocytes (%) (Auto) % (20.0-45.0) Monocytes (%) (Auto) % (1.0-10.0) Eosinophils (%) (Auto) % (0.0-3.0) Basophils (%) (Auto) % (0.0-2.0) Differential Total Cells Counted 100 Neutrophils % (Manual) 86 % (45-75) Lymphocytes % (Manual) 7 % (20-45) Monocytes % (Manual) 6 % (1-10) Eosinophils % (Manual) 1 % (0-3) Basophils % (Manual) 0 % (0-2) Band Neutrophils 0 % (0-8) Platelet Estimate Decreased Platelet Morphology Normal Hypochromasia 2+ Anisocytosis 1+ Spherocytes 1+ Sodium Level 136 MMOL/L (136-145) Potassium Level 3.5 MMOL/L (3.5-5.1) Chloride Level 102 MMOL/L (98-107) Carbon Dioxide Level 22 MMOL/L (21-32) Anion Gap 12 mmol/L (5-15) Blood Urea Nitrogen 66 mg/dL (7-18) Creatinine 2.6 MG/DL (0.55-1.30) Estimat Glomerular Filtration Rate 25.4 mL/min (>60) Glucose Level 215 MG/DL (74-106) Uric Acid 5.2 MG/DL (2.6-7.2) Calcium Level 8.7 MG/DL (8.5-10.1) Phosphorus Level 3.3 MG/DL (2.5-4.9) Magnesium Level 2.3 MG/DL (1.8-2.4) Total Bilirubin 0.4 MG/DL (0.2-1.0) Gamma Glutamyl Transpeptidase 165 U/L (5-85) Aspartate Amino Transf (AST/SGOT) 59 U/L (15-37) Alanine Aminotransferase (ALT/SGPT) 51 U/L (12-78) Alkaline Phosphatase 129 U/L (46-116) C-Reactive Protein, Quantitative 8.3 mg/dL (0.00-0.90) Pro-B-Type Natriuretic Peptide 42162 pg/mL (0-125) Total Protein 5.5 G/DL (6.4-8.2) Albumin 2.4 G/DL (3.4-5.0) Globulin 3.1 g/dL Albumin/Globulin Ratio 0.8 (1.0-2.7) Height (Feet): 6 Height (Inches): 0.00 Weight (Pounds): 268 Objective PHYSICAL EXAMINATION: GENERAL: NAD VITAL SIGNS: Have been reviewed. HEAD AND NECK: Shows no JVD. NG+ vent+ LUNGS: Coarse rhonchi. CARDIOVASCULAR: Shows regular S1 and S2 with no gallop or murmur. ABDOMEN: Soft. EXTREMITIES: No pitting edema. Chan Hernandez MD Mar 01, 2019 10:32
--- NOTE | 2019-03-01 11:00 | NUR ---
NURSE NOTES: Fentanyl drip is maintained at 200mcg/hr to maintain RASS score of -2 light sedation. VS stable. Pt is repositioned with bilateral extremities elevated on pillows.
--- NOTE | 2019-03-01 12:30 | NUR ---
NURSE NOTES: Pt was seen by Dr Francois, no new orders at this time. Fentanyl drip is maintained at 200mcg/hr to maintain RASS score of -2 light sedation. Bilateral soft wrist restraint remain in place as pt is still at high risk of self-extubation. VS stable. Oral care done. Pt has been cleaned, and repositioned with bilateral extremities elevated on pillows. Simon continues to drain dark scott urine at high output of 150ml/hour. Pt is tolerating NGT feeding with no residual noted.
--- NOTE | 2019-03-01 13:51 | Surgery Progress Note ---
Surgery Progress Note Subjective Procedure Performed left femoral temporary Hemodialysis catheter removal Additional Comments unable to wean from vent will need trach Objective Last 24 Hour Vital Signs Date Time Temp Pulse Resp B/P (MAP) Pulse Ox O2 Delivery O2 Flow Rate FiO2 03/01/19 13:48 79 24 97 Mechanical Ventilator 40 03/01/19 13:36 78 26 98 Mechanical Ventilator 40 03/01/19 13:30 78 24 147/54 (85) 98 03/01/19 13:30 77 24 40 03/01/19 13:00 98.2 80 24 156/65 (95) 98 03/01/19 12:36 162/73 03/01/19 12:00 Mechanical Ventilator Mechanical Ventilator 03/01/19 12:00 40 03/01/19 12:00 79 03/01/19 12:00 79 25 155/69 (97) 95 03/01/19 11:01 84 34 40 03/01/19 11:00 82 26 152/68 (96) 96 03/01/19 11:00 24 Mechanical Ventilator 100 03/01/19 10:00 82 28 163/68 (99) 95 03/01/19 10:00 24 Mechanical Ventilator 100 03/01/19 09:30 85 30 163/64 (97) 94 03/01/19 09:15 98.2 03/01/19 09:00 93 26 145/71 (95) 93 03/01/19 09:00 24 Mechanical Ventilator 96 03/01/19 08:45 140/60 03/01/19 08:45 24 Mechanical Ventilator 94 03/01/19 08:45 84 140/60 03/01/19 08:45 84 140/60 03/01/19 08:45 97 29 40 03/01/19 08:35 91 34 40 03/01/19 08:35 100 03/01/19 08:30 91 25 138/88 (105) 95 03/01/19 08:00 89 03/01/19 08:00 40 03/01/19 08:00 Mechanical Ventilator Mechanical Ventilator 03/01/19 08:00 98.2 93 29 160/67 (98) 96 03/01/19 07:01 84 30 140/60 (86) 95 03/01/19 06:51 86 31 100 Mechanical Ventilator 40 03/01/19 06:43 86 34 94 Mechanical Ventilator 40 03/01/19 06:42 84 30 40 03/01/19 06:30 84 26 154/66 (95) 95 03/01/19 06:00 84 21 141/87 (105) 97 03/01/19 06:00 23 Mechanical Ventilator 40 03/01/19 05:38 150/67 03/01/19 05:37 150/67 03/01/19 05:30 84 23 150/67 (94) 97 03/01/19 05:00 26 Mechanical Ventilator 40 03/01/19 05:00 26 Mechanical Ventilator 40 03/01/19 05:00 83 25 143/60 (87) 96 03/01/19 04:57 84 25 40 03/01/19 04:30 84 22 140/54 (82) 97 03/01/19 04:00 24 Mechanical Ventilator 40 03/01/19 04:00 24 Mechanical Ventilator 40 03/01/19 04:00 Mechanical Ventilator 03/01/19 04:00 98.7 84 19 142/62 (88) 96 03/01/19 03:30 82 25 151/61 (91) 97 03/01/19 03:01 88 29 40 03/01/19 03:00 86 28 143/118 (126) 100 03/01/19 03:00 27 Mechanical Ventilator 40 03/01/19 02:30 83 17 146/117 (127) 92 03/01/19 02:00 83 22 137/68 (91) 95 03/01/19 02:00 24 Mechanical Ventilator 40 03/01/19 01:32 24 Mechanical Ventilator 40 03/01/19 01:30 82 25 145/59 (87) 97 03/01/19 01:21 82 30 100 Mechanical Ventilator 40 03/01/19 01:11 81 31 98 Mechanical Ventilator 40 03/01/19 01:10 83 31 40 03/01/19 01:00 82 146/55 (85) 96 03/01/19 01:00 24 Mechanical Ventilator 40 03/01/19 00:30 81 24 143/70 (94) 99 03/01/19 00:09 40 03/01/19 00:08 85 03/01/19 00:05 Mechanical Ventilator 03/01/19 00:00 98.4 78 24 150/61 (90) 94 03/01/19 00:00 24 Mechanical Ventilator 40 02/28/19 23:47 154/59 02/28/19 23:30 79 24 154/59 (90) 95 02/28/19 23:01 81 27 40 02/28/19 23:00 23 Mechanical Ventilator 40 02/28/19 23:00 78 25 151/59 (89) 100 02/28/19 22:30 78 23 143/56 (85) 93 02/28/19 22:00 25 Mechanical Ventilator 40 02/28/19 22:00 78 26 141/63 (89) 98 02/28/19 21:51 151/43 02/28/19 21:30 78 24 151/43 (79) 100 02/28/19 21:12 83 30 40 02/28/19 21:03 152/60 02/28/19 21:03 82 152/60 02/28/19 21:00 83 25 145/62 (89) 99 02/28/19 21:00 23 Mechanical Ventilator 40 02/28/19 20:30 80 22 152/60 (90) 100 02/28/19 20:00 82 02/28/19 20:00 Mechanical Ventilator 02/28/19 20:00 40 02/28/19 20:00 82 16 159/81 (107) 99 02/28/19 20:00 23 Mechanical Ventilator 40 02/28/19 19:45 80 22 153/60 (91) 98 02/28/19 19:35 79 24 100 Mechanical Ventilator 40 02/28/19 19:30 97.9 79 23 147/61 (89) 100 02/28/19 19:25 79 26 40 02/28/19 19:25 79 26 100 Mechanical Ventilator 40 02/28/19 19:15 78 19 153/63 (93) 97 02/28/19 19:00 79 20 153/58 (89) 100 02/28/19 19:00 26 Mechanical Ventilator 40 02/28/19 18:45 76 15 147/59 (88) 98 02/28/19 18:30 75 22 142/59 (86) 98 02/28/19 18:15 74 21 145/59 (87) 98 02/28/19 18:04 147/52 02/28/19 18:00 97.6 78 23 164/63 (96) 99 02/28/19 18:00 27 Mechanical Ventilator 40 02/28/19 17:30 74 21 156/59 (91) 98 02/28/19 17:03 72 29 40 02/28/19 17:00 20 Mechanical Ventilator 40 02/28/19 17:00 72 21 151/64 (93) 98 02/28/19 16:45 72 21 149/62 (91) 99 02/28/19 16:30 72 29 149/62 (91) 98 02/28/19 16:15 71 20 147/67 (93) 98 02/28/19 16:08 20 Mechanical Ventilator 40 02/28/19 16:00 97.5 70 21 147/67 (93) 98 02/28/19 16:00 Mechanical Ventilator 02/28/19 15:43 69 02/28/19 15:00 70 23 138/58 (84) 98 02/28/19 15:00 40 02/28/19 14:51 71 26 40 02/28/19 14:19 138/63 02/28/19 14:00 72 24 138/63 (88) 97 I&O Intake and Output 02/28/19 03/01/19 19:00 07:00 Intake Total 624.5 ml 870 ml Output Total 2070 ml 1250 ml Balance -1445.5 ml -380 ml IV Total 266.5 ml 440 ml Tube Feeding 258 ml 430 ml Other 100 ml Output Urine Total 2070 ml 1150 ml Stool Total 100 ml # Bowel Movements 30 Dressing: saturated Wound: clean Cardiovascular: RSR Respiratory: decreased breath sounds Abdomen: soft, present bowel sounds, non-distended Extremities: no cyanosis, other Laboratory Tests Test 03/01/19 05:26 White Blood Count 4.2 K/UL (4.8-10.8) L Red Blood Count 2.82 M/UL (4.70-6.10) L Hemoglobin 8.1 G/DL (14.2-18.0) L Hematocrit 24.8 % (42.0-52.0) L Mean Corpuscular Volume 88 FL (80-99) Mean Corpuscular Hemoglobin 28.6 PG (27.0-31.0) Mean Corpuscular Hemoglobin Concent 32.6 G/DL (32.0-36.0) Red Cell Distribution Width 16.8 % (11.6-14.8) H Platelet Count 104 K/UL (150-450) L Mean Platelet Volume 6.1 FL (6.5-10.1) L Neutrophils (%) (Auto) % (45.0-75.0) Lymphocytes (%) (Auto) % (20.0-45.0) Monocytes (%) (Auto) % (1.0-10.0) Eosinophils (%) (Auto) % (0.0-3.0) Basophils (%) (Auto) % (0.0-2.0) Differential Total Cells Counted 100 Neutrophils % (Manual) 86 % (45-75) H Lymphocytes % (Manual) 7 % (20-45) L Monocytes % (Manual) 6 % (1-10) Eosinophils % (Manual) 1 % (0-3) Basophils % (Manual) 0 % (0-2) Band Neutrophils 0 % (0-8) Platelet Estimate Decreased L Platelet Morphology Normal Hypochromasia 2+ Anisocytosis 1+ Spherocytes 1+ Sodium Level 136 MMOL/L (136-145) Potassium Level 3.5 MMOL/L (3.5-5.1) Chloride Level 102 MMOL/L (98-107) Carbon Dioxide Level 22 MMOL/L (21-32) Anion Gap 12 mmol/L (5-15) Blood Urea Nitrogen 66 mg/dL (7-18) H Creatinine 2.6 MG/DL (0.55-1.30) H Estimat Glomerular Filtration Rate 25.4 mL/min (>60) Glucose Level 215 MG/DL (74-106) H Uric Acid 5.2 MG/DL (2.6-7.2) Calcium Level 8.7 MG/DL (8.5-10.1) Phosphorus Level 3.3 MG/DL (2.5-4.9) Magnesium Level 2.3 MG/DL (1.8-2.4) Total Bilirubin 0.4 MG/DL (0.2-1.0) Gamma Glutamyl Transpeptidase 165 U/L (5-85) H Aspartate Amino Transf (AST/SGOT) 59 U/L (15-37) H Alanine Aminotransferase (ALT/SGPT) 51 U/L (12-78) Alkaline Phosphatase 129 U/L (46-116) H C-Reactive Protein, Quantitative 8.3 mg/dL (0.00-0.90) H Pro-B-Type Natriuretic Peptide 19369 pg/mL (0-125) H Total Protein 5.5 G/DL (6.4-8.2) L Albumin 2.4 G/DL (3.4-5.0) L Globulin 3.1 g/dL Albumin/Globulin Ratio 0.8 (1.0-2.7) L Plan Problems: (1) Hypoxia Assessment & Plan: Extensive bilateral upper lobe infiltrates likely inflammatory/infectious. Correlate clinically. Tuberculosis is not excludable. Bilateral pleural effusions. Endotracheal tube and nasogastric tube in good position Atherosclerotic vascular disease (2) Respiratory distress Assessment & Plan: intubated on vent support may require trach given failed initial extubation and now difficult to wean will plan for trach tomorrow (3) Sepsis Assessment & Plan: Sepsis with tachycardia, leukocytosis - resolved, abnormal labs, respiratory distress on vent support via ET tube Cont IV abx CXR noted appreciate ICU team care abnormal lft's US noted will likely remove line soon now that improving will cont to follow with recs trend labs Rx as written PICC placed HD line removed may need trach Moiz Costa Mar 01, 2019 13:51
--- NOTE | 2019-03-01 13:53 | Pre-Procedure Note/Attestation ---
Pre-Procedure Note/Attestation Complete Prior to Procedure Planned Procedure: not applicable Procedure Narrative: tracheostomy Indications for Procedure Pre-Operative Diagnosis: respiratory insufficiency, hypoxia, acidosis, renal insufficiency Attestation I attest that I discussed the nature of the procedure; its benefits; risks and complications; and alternatives (and the risks and benefits of such alternatives ), prior to the procedure, with the patient (or the patient's legal wholesale representative). I attest that, if there was a reasonable possibility of needing a blood transfusion, the patient (or the patient's legal wholesale representative) was given the [facility] standardized written summary, pursuant to the Nicholas Daniela Blood Safety Act ([place] Health and Safety Code # 1645, as amended). I attest that I re-evaluated the patient just prior to the surgery and that there has been no change in the patient's H&P, except as documented below: Moiz Costa Mar 01, 2019 13:53
--- NOTE | 2019-03-01 14:00 | NUR ---
NURSE NOTES: Pt was seen by Dr Meredith and Dr Costa. Per MDs, plan for trach placement tomorrow. Order noted to hold feeding at midnight and hold Heparin SQ. Fentanyl drip is currently maintained at 200mcg/hr to maintain RASS score of -2 light sedation. VS stable. Oral care done. Pt repositioned.
--- NOTE | 2019-03-01 15:08 | Pulmonolgy Critical Care Note ---
Critical Care - Asmt/Plan Problems: (1) Endotracheally intubated (2) Acute hypoxemic respiratory failure (3) Pneumonia (4) NSTEMI (non-ST elevated myocardial infarction) (5) AIDS (6) HIV disease (7) Hypertension (8) MDD (major depressive disorder), recurrent episode, moderate (9) Anemia (10) CKD (chronic kidney disease) (11) History of stroke (12) Diabetes (13) Anxiety (14) Malignant hypertension (15) Occult blood positive stool Assessment/Plan: VDRF, extubated 02/19, re-intubated 02/20 Hemoptysis, hematemesis ARDS Acute respiratory failure B pulmonary infiltrates, ? multilobar CAP vs atypical infection vs other ? PJP AIDS (CD4 191) NSTEMI H/O prior CVA HTN HL DM with uncontrolled BS ISH on CKD Anemia, FOBT + PLAN: Continue ventilatory support/settings reviewed Failed SBT, will need a TRACH Keep PEEP 5, titrate down FiO2 to keep SaO2 > 90% RTC and PRN HHN's Continue Abx per ID (Clinda/Primaqui, Cefepime) + flucon per ID Off steroids Monitor volumes and renal function --> D/W Tamara Rachel, continue Zaroxyln 10 and lasix 40 IV qDaily - so far renal fxn improving with diuresis F/U cards recs: will need further ischemia eval/cath once stabilized DVT Px: Hep SQ Monitor for bleeding, F/U GI recs F/U ENDO recs TF's as celestino FC, continue to discuss GOC D/W RN and RT @ bedside CCT 35 Critical Care - Objective Last 24 Hour Vital Signs Date Time Temp Pulse Resp B/P (MAP) Pulse Ox O2 Delivery O2 Flow Rate FiO2 03/01/19 14:32 156/56 03/01/19 14:30 82 25 162/42 (82) 94 03/01/19 14:00 78 25 154/56 (88) 96 03/01/19 13:48 79 24 97 Mechanical Ventilator 40 03/01/19 13:36 78 26 98 Mechanical Ventilator 40 03/01/19 13:30 78 24 147/54 (85) 98 03/01/19 13:30 77 24 40 03/01/19 13:00 98.2 80 24 156/65 (95) 98 03/01/19 12:36 162/73 03/01/19 12:00 Mechanical Ventilator Mechanical Ventilator 03/01/19 12:00 40 03/01/19 12:00 79 03/01/19 12:00 79 25 155/69 (97) 95 03/01/19 11:01 84 34 40 03/01/19 11:00 82 26 152/68 (96) 96 03/01/19 11:00 24 Mechanical Ventilator 100 03/01/19 10:00 82 28 163/68 (99) 95 03/01/19 10:00 24 Mechanical Ventilator 100 03/01/19 09:30 85 30 163/64 (97) 94 03/01/19 09:15 98.2 03/01/19 09:00 93 26 145/71 (95) 93 03/01/19 09:00 24 Mechanical Ventilator 96 03/01/19 08:45 140/60 03/01/19 08:45 24 Mechanical Ventilator 94 03/01/19 08:45 84 140/60 03/01/19 08:45 84 140/60 03/01/19 08:45 97 29 40 03/01/19 08:35 91 34 40 03/01/19 08:35 100 03/01/19 08:30 91 25 138/88 (105) 95 03/01/19 08:00 89 03/01/19 08:00 40 03/01/19 08:00 Mechanical Ventilator Mechanical Ventilator 03/01/19 08:00 98.2 93 29 160/67 (98) 96 03/01/19 07:01 84 30 140/60 (86) 95 03/01/19 06:51 86 31 100 Mechanical Ventilator 40 03/01/19 06:43 86 34 94 Mechanical Ventilator 40 03/01/19 06:42 84 30 40 03/01/19 06:30 84 26 154/66 (95) 95 03/01/19 06:00 84 21 141/87 (105) 97 03/01/19 06:00 23 Mechanical Ventilator 40 03/01/19 05:38 150/67 03/01/19 05:37 150/67 03/01/19 05:30 84 23 150/67 (94) 97 03/01/19 05:00 26 Mechanical Ventilator 40 03/01/19 05:00 26 Mechanical Ventilator 40 03/01/19 05:00 83 25 143/60 (87) 96 03/01/19 04:57 84 25 40 03/01/19 04:30 84 22 140/54 (82) 97 03/01/19 04:00 24 Mechanical Ventilator 40 03/01/19 04:00 24 Mechanical Ventilator 40 03/01/19 04:00 Mechanical Ventilator 03/01/19 04:00 98.7 84 19 142/62 (88) 96 03/01/19 03:30 82 25 151/61 (91) 97 03/01/19 03:01 88 29 40 03/01/19 03:00 86 28 143/118 (126) 100 03/01/19 03:00 27 Mechanical Ventilator 40 03/01/19 02:30 83 17 146/117 (127) 92 03/01/19 02:00 83 22 137/68 (91) 95 03/01/19 02:00 24 Mechanical Ventilator 40 03/01/19 01:32 24 Mechanical Ventilator 40 03/01/19 01:30 82 25 145/59 (87) 97 03/01/19 01:21 82 30 100 Mechanical Ventilator 40 03/01/19 01:11 81 31 98 Mechanical Ventilator 40 03/01/19 01:10 83 31 40 03/01/19 01:00 82 146/55 (85) 96 03/01/19 01:00 24 Mechanical Ventilator 40 03/01/19 00:30 81 24 143/70 (94) 99 03/01/19 00:09 40 03/01/19 00:08 85 03/01/19 00:05 Mechanical Ventilator 03/01/19 00:00 98.4 78 24 150/61 (90) 94 03/01/19 00:00 24 Mechanical Ventilator 40 02/28/19 23:47 154/59 02/28/19 23:30 79 24 154/59 (90) 95 02/28/19 23:01 81 27 40 02/28/19 23:00 23 Mechanical Ventilator 40 02/28/19 23:00 78 25 151/59 (89) 100 02/28/19 22:30 78 23 143/56 (85) 93 02/28/19 22:00 25 Mechanical Ventilator 40 02/28/19 22:00 78 26 141/63 (89) 98 02/28/19 21:51 151/43 02/28/19 21:30 78 24 151/43 (79) 100 02/28/19 21:12 83 30 40 02/28/19 21:03 152/60 02/28/19 21:03 82 152/60 02/28/19 21:00 83 25 145/62 (89) 99 02/28/19 21:00 23 Mechanical Ventilator 40 02/28/19 20:30 80 22 152/60 (90) 100 02/28/19 20:00 82 02/28/19 20:00 Mechanical Ventilator 02/28/19 20:00 40 02/28/19 20:00 82 16 159/81 (107) 99 02/28/19 20:00 23 Mechanical Ventilator 40 02/28/19 19:45 80 22 153/60 (91) 98 02/28/19 19:35 79 24 100 Mechanical Ventilator 40 02/28/19 19:30 97.9 79 23 147/61 (89) 100 02/28/19 19:25 79 26 40 02/28/19 19:25 79 26 100 Mechanical Ventilator 40 02/28/19 19:15 78 19 153/63 (93) 97 02/28/19 19:00 79 20 153/58 (89) 100 02/28/19 19:00 26 Mechanical Ventilator 40 02/28/19 18:45 76 15 147/59 (88) 98 02/28/19 18:30 75 22 142/59 (86) 98 02/28/19 18:15 74 21 145/59 (87) 98 02/28/19 18:04 147/52 02/28/19 18:00 97.6 78 23 164/63 (96) 99 02/28/19 18:00 27 Mechanical Ventilator 40 02/28/19 17:30 74 21 156/59 (91) 98 02/28/19 17:03 72 29 40 02/28/19 17:00 20 Mechanical Ventilator 40 02/28/19 17:00 72 21 151/64 (93) 98 02/28/19 16:45 72 21 149/62 (91) 99 02/28/19 16:30 72 29 149/62 (91) 98 02/28/19 16:15 71 20 147/67 (93) 98 02/28/19 16:08 20 Mechanical Ventilator 40 02/28/19 16:00 97.5 70 21 147/67 (93) 98 02/28/19 16:00 Mechanical Ventilator 02/28/19 15:43 69 Status: sedated - intubated Condition: critical HEENT: atraumatic, normocephalic, other - ETT NGT Lungs: rales Heart: HR/BP stable Abdomen: soft, non-tender, active bowel sounds Extremities: edema - 2+ Accucheck: 225 Blood Sugars: BS controlled Critical Care - Subjective ROS Limited/Unobtainable: Yes ICU Day: 23 Intubation Day: 9 Interval Events: Failed SBT Cr better with diuresis IV Access: PICC EKG Rhythm: Sinus Rhythm FI02: 40 Vent Support Breath Rate: 24 Vent Support Mode: AC Vent Tidal Volume: 550 Sputum Amount: Small PEEP: 5.0 PIP: 29 Drips: Fent Tube Feeding Amount: 0 I&O: Intake and Output 02/28/19 03/01/19 19:00 07:00 Intake Total 624.5 ml 870 ml Output Total 2070 ml 1250 ml Balance -1445.5 ml -380 ml IV Total 266.5 ml 440 ml Tube Feeding 258 ml 430 ml Other 100 ml Output Urine Total 2070 ml 1150 ml Stool Total 100 ml # Bowel Movements 30 Subjective: CONRAD ET-Tube: 7.5 ET Position: 24 Labs: Laboratory Tests Test 03/01/19 05:26 White Blood Count 4.2 K/UL (4.8-10.8) L Red Blood Count 2.82 M/UL (4.70-6.10) L Hemoglobin 8.1 G/DL (14.2-18.0) L Hematocrit 24.8 % (42.0-52.0) L Mean Corpuscular Volume 88 FL (80-99) Mean Corpuscular Hemoglobin 28.6 PG (27.0-31.0) Mean Corpuscular Hemoglobin Concent 32.6 G/DL (32.0-36.0) Red Cell Distribution Width 16.8 % (11.6-14.8) H Platelet Count 104 K/UL (150-450) L Mean Platelet Volume 6.1 FL (6.5-10.1) L Neutrophils (%) (Auto) % (45.0-75.0) Lymphocytes (%) (Auto) % (20.0-45.0) Monocytes (%) (Auto) % (1.0-10.0) Eosinophils (%) (Auto) % (0.0-3.0) Basophils (%) (Auto) % (0.0-2.0) Differential Total Cells Counted 100 Neutrophils % (Manual) 86 % (45-75) H Lymphocytes % (Manual) 7 % (20-45) L Monocytes % (Manual) 6 % (1-10) Eosinophils % (Manual) 1 % (0-3) Basophils % (Manual) 0 % (0-2) Band Neutrophils 0 % (0-8) Platelet Estimate Decreased L Platelet Morphology Normal Hypochromasia 2+ Anisocytosis 1+ Spherocytes 1+ Sodium Level 136 MMOL/L (136-145) Potassium Level 3.5 MMOL/L (3.5-5.1) Chloride Level 102 MMOL/L (98-107) Carbon Dioxide Level 22 MMOL/L (21-32) Anion Gap 12 mmol/L (5-15) Blood Urea Nitrogen 66 mg/dL (7-18) H Creatinine 2.6 MG/DL (0.55-1.30) H Estimat Glomerular Filtration Rate 25.4 mL/min (>60) Glucose Level 215 MG/DL (74-106) H Uric Acid 5.2 MG/DL (2.6-7.2) Calcium Level 8.7 MG/DL (8.5-10.1) Phosphorus Level 3.3 MG/DL (2.5-4.9) Magnesium Level 2.3 MG/DL (1.8-2.4) Total Bilirubin 0.4 MG/DL (0.2-1.0) Gamma Glutamyl Transpeptidase 165 U/L (5-85) H Aspartate Amino Transf (AST/SGOT) 59 U/L (15-37) H Alanine Aminotransferase (ALT/SGPT) 51 U/L (12-78) Alkaline Phosphatase 129 U/L (46-116) H C-Reactive Protein, Quantitative 8.3 mg/dL (0.00-0.90) H Pro-B-Type Natriuretic Peptide 87684 pg/mL (0-125) H Total Protein 5.5 G/DL (6.4-8.2) L Albumin 2.4 G/DL (3.4-5.0) L Globulin 3.1 g/dL Albumin/Globulin Ratio 0.8 (1.0-2.7) L Brett Meredith MD Mar 01, 2019 15:08
[2019-03-01] MEDS: Cefepime HCl 1 GM in D5W 55 ML IVPB SCH (15:38)
--- NOTE | 2019-03-01 15:44 | Nephrology Progress Note ---
Assessment/Plan Problem List: (1) ISH (acute kidney injury) Assessment: Cr lowering (2) HIV (human immunodeficiency virus infection) (3) NSTEMI (non-ST elevated myocardial infarction) Assessment: troponin decreasing (4) Hypoxia (5) Anemia (6) Diabetes Assessment Acute Renal failure- Cr leveling- Urine out put is good Acidosis improved Acute respiratory failure- Require intubation and Mechanical Ventilation- Anemia- Elevated troponin / FL HTN DM HIV Antibody + Plan adjust BP meds on feeding 3% saline once IV protonix NGt suction transfusiosn as needed no need for HD yet ? Trach BP med adjustment UA and urine studies Avoid Nephrotoxics as possible Monitor renal parameters keep BP and BS in check Per orders No HD at this time Kidney RADHA noted adjust BP meds add Isordil Subjective ROS Limited/Unobtainable: Yes Objective Objective Last 24 Hour Vital Signs Date Time Temp Pulse Resp B/P (MAP) Pulse Ox O2 Delivery O2 Flow Rate FiO2 03/01/19 15:00 80 19 144/53 (83) 97 03/01/19 14:42 82 26 40 03/01/19 14:32 156/56 03/01/19 14:30 82 25 162/42 (82) 94 03/01/19 14:00 78 25 154/56 (88) 96 03/01/19 13:48 79 24 97 Mechanical Ventilator 40 03/01/19 13:36 78 26 98 Mechanical Ventilator 40 03/01/19 13:30 78 24 147/54 (85) 98 03/01/19 13:30 77 24 40 03/01/19 13:00 98.2 80 24 156/65 (95) 98 03/01/19 12:36 162/73 03/01/19 12:00 Mechanical Ventilator Mechanical Ventilator 03/01/19 12:00 40 03/01/19 12:00 79 03/01/19 12:00 79 25 155/69 (97) 95 03/01/19 11:01 84 34 40 03/01/19 11:00 82 26 152/68 (96) 96 03/01/19 11:00 24 Mechanical Ventilator 100 03/01/19 10:00 82 28 163/68 (99) 95 03/01/19 10:00 24 Mechanical Ventilator 100 03/01/19 09:30 85 30 163/64 (97) 94 03/01/19 09:15 98.2 03/01/19 09:00 93 26 145/71 (95) 93 03/01/19 09:00 24 Mechanical Ventilator 96 03/01/19 08:45 140/60 03/01/19 08:45 24 Mechanical Ventilator 94 03/01/19 08:45 84 140/60 03/01/19 08:45 84 140/60 03/01/19 08:45 97 29 40 03/01/19 08:35 91 34 40 03/01/19 08:35 100 03/01/19 08:30 91 25 138/88 (105) 95 03/01/19 08:00 89 03/01/19 08:00 40 03/01/19 08:00 Mechanical Ventilator Mechanical Ventilator 03/01/19 08:00 98.2 93 29 160/67 (98) 96 03/01/19 07:01 84 30 140/60 (86) 95 03/01/19 06:51 86 31 100 Mechanical Ventilator 40 03/01/19 06:43 86 34 94 Mechanical Ventilator 40 03/01/19 06:42 84 30 40 03/01/19 06:30 84 26 154/66 (95) 95 03/01/19 06:00 84 21 141/87 (105) 97 03/01/19 06:00 23 Mechanical Ventilator 40 03/01/19 05:38 150/67 03/01/19 05:37 150/67 03/01/19 05:30 84 23 150/67 (94) 97 03/01/19 05:00 26 Mechanical Ventilator 40 03/01/19 05:00 26 Mechanical Ventilator 40 03/01/19 05:00 83 25 143/60 (87) 96 03/01/19 04:57 84 25 40 03/01/19 04:30 84 22 140/54 (82) 97 03/01/19 04:00 24 Mechanical Ventilator 40 03/01/19 04:00 24 Mechanical Ventilator 40 03/01/19 04:00 Mechanical Ventilator 03/01/19 04:00 98.7 84 19 142/62 (88) 96 03/01/19 03:30 82 25 151/61 (91) 97 03/01/19 03:01 88 29 40 03/01/19 03:00 86 28 143/118 (126) 100 03/01/19 03:00 27 Mechanical Ventilator 40 03/01/19 02:30 83 17 146/117 (127) 92 03/01/19 02:00 83 22 137/68 (91) 95 03/01/19 02:00 24 Mechanical Ventilator 40 03/01/19 01:32 24 Mechanical Ventilator 40 03/01/19 01:30 82 25 145/59 (87) 97 03/01/19 01:21 82 30 100 Mechanical Ventilator 40 03/01/19 01:11 81 31 98 Mechanical Ventilator 40 03/01/19 01:10 83 31 40 03/01/19 01:00 82 146/55 (85) 96 03/01/19 01:00 24 Mechanical Ventilator 40 03/01/19 00:30 81 24 143/70 (94) 99 03/01/19 00:09 40 03/01/19 00:08 85 03/01/19 00:05 Mechanical Ventilator 03/01/19 00:00 98.4 78 24 150/61 (90) 94 03/01/19 00:00 24 Mechanical Ventilator 40 02/28/19 23:47 154/59 02/28/19 23:30 79 24 154/59 (90) 95 02/28/19 23:01 81 27 40 02/28/19 23:00 23 Mechanical Ventilator 40 02/28/19 23:00 78 25 151/59 (89) 100 02/28/19 22:30 78 23 143/56 (85) 93 02/28/19 22:00 25 Mechanical Ventilator 40 02/28/19 22:00 78 26 141/63 (89) 98 02/28/19 21:51 151/43 02/28/19 21:30 78 24 151/43 (79) 100 02/28/19 21:12 83 30 40 02/28/19 21:03 152/60 02/28/19 21:03 82 152/60 02/28/19 21:00 83 25 145/62 (89) 99 02/28/19 21:00 23 Mechanical Ventilator 40 02/28/19 20:30 80 22 152/60 (90) 100 02/28/19 20:00 82 02/28/19 20:00 Mechanical Ventilator 02/28/19 20:00 40 02/28/19 20:00 82 16 159/81 (107) 99 02/28/19 20:00 23 Mechanical Ventilator 40 02/28/19 19:45 80 22 153/60 (91) 98 02/28/19 19:35 79 24 100 Mechanical Ventilator 40 02/28/19 19:30 97.9 79 23 147/61 (89) 100 02/28/19 19:25 79 26 40 02/28/19 19:25 79 26 100 Mechanical Ventilator 40 02/28/19 19:15 78 19 153/63 (93) 97 02/28/19 19:00 79 20 153/58 (89) 100 02/28/19 19:00 26 Mechanical Ventilator 40 02/28/19 18:45 76 15 147/59 (88) 98 02/28/19 18:30 75 22 142/59 (86) 98 02/28/19 18:15 74 21 145/59 (87) 98 02/28/19 18:04 147/52 02/28/19 18:00 97.6 78 23 164/63 (96) 99 02/28/19 18:00 27 Mechanical Ventilator 40 02/28/19 17:30 74 21 156/59 (91) 98 02/28/19 17:03 72 29 40 02/28/19 17:00 20 Mechanical Ventilator 40 02/28/19 17:00 72 21 151/64 (93) 98 02/28/19 16:45 72 21 149/62 (91) 99 02/28/19 16:30 72 29 149/62 (91) 98 02/28/19 16:15 71 20 147/67 (93) 98 02/28/19 16:08 20 Mechanical Ventilator 40 02/28/19 16:00 97.5 70 21 147/67 (93) 98 02/28/19 16:00 Mechanical Ventilator Intake and Output 02/28/19 03/01/19 19:00 07:00 Intake Total 624.5 ml 870 ml Output Total 2070 ml 1250 ml Balance -1445.5 ml -380 ml IV Total 266.5 ml 440 ml Tube Feeding 258 ml 430 ml Other 100 ml Output Urine Total 2070 ml 1150 ml Stool Total 100 ml # Bowel Movements 30 Laboratory Tests 03/01/19 05:26: White Blood Count 4.2L, Red Blood Count 2.82L, Hemoglobin 8.1L, Hematocrit 24.8L , Mean Corpuscular Volume 88, Mean Corpuscular Hemoglobin 28.6, Mean Corpuscular Hemoglobin Concent 32.6, Red Cell Distribution Width 16.8H, Platelet Count 104L, Mean Platelet Volume 6.1L, Neutrophils (%) (Auto) , Lymphocytes (%) (Auto) , Monocytes (%) (Auto) , Eosinophils (%) (Auto) , Basophils (%) (Auto) , Differential Total Cells Counted 100, Neutrophils % ( Manual) 86H, Lymphocytes % (Manual) 7L, Monocytes % (Manual) 6, Eosinophils % ( Manual) 1, Basophils % (Manual) 0, Band Neutrophils 0, Platelet Estimate DecreasedL, Platelet Morphology Normal, Hypochromasia 2+, Anisocytosis 1+, Spherocytes 1+, Sodium Level 136, Potassium Level 3.5, Chloride Level 102, Carbon Dioxide Level 22, Anion Gap 12, Blood Urea Nitrogen 66H, Creatinine 2.6H , Estimat Glomerular Filtration Rate 25.4, Glucose Level 215H, Uric Acid 5.2, Calcium Level 8.7, Phosphorus Level 3.3, Magnesium Level 2.3, Total Bilirubin 0.4, Gamma Glutamyl Transpeptidase 165H, Aspartate Amino Transf (AST/SGOT) 59H, Alanine Aminotransferase (ALT/SGPT) 51, Alkaline Phosphatase 129H, C-Reactive Protein, Quantitative 8.3H, Pro-B-Type Natriuretic Peptide 66787W, Total Protein 5.5L, Albumin 2.4L, Globulin 3.1, Albumin/Globulin Ratio 0.8L Height (Feet): 6 Height (Inches): 0.00 Weight (Pounds): 268 General Appearance: no apparent distress Cardiovascular: normal rate Respiratory/Chest: decreased breath sounds Abdomen: distended Objective no change Mike Mcdonald MD Mar 01, 2019 15:44
--- NOTE | 2019-03-01 16:40 | Cardiac Electrophysiology PN ---
Assessment/Plan Assessment/Plan 1. Non-ST elevation myocardial infarction with peak troponin of more than 10, down to 3.[address]-T wave abnormalities. Continue Lipitor, Imdur and metoprolol Not a candidate for Cardiac catheterization 2. Hypertension. Metoprolol 100 bid, Isordil 20 q6 and hydralazine 50 q 8 hr 3. Respiratory failure due to Multilobar Pneumonia. Extubated 02/19/19. Reintubated 02/20/19 Tracheostomy pending tomorrow by Dr Costa 4. Hyperlipidemia. On Lipitor. 5. Human immunodeficiency virus. On anti-retroviral therapy with undetectable viral load. 6. ARF Cr 3 7. Bleeding from ETT and NG tube. S/P PRBC. Off Aspirin and Lovenox No further bleeding DW RN Subjective Subjective In ICU on the vent and scheduled for Tracheostomy tomorrow. Objective Last 24 Hour Vital Signs Date Time Temp Pulse Resp B/P (MAP) Pulse Ox O2 Delivery O2 Flow Rate FiO2 03/01/19 16:00 82 03/01/19 16:00 40 03/01/19 16:00 Mechanical Ventilator Mechanical Ventilator 03/01/19 16:00 98.3 84 26 157/60 (92) 96 03/01/19 15:00 80 19 144/53 (83) 97 03/01/19 15:00 24 Mechanical Ventilator 100 03/01/19 14:42 82 26 40 03/01/19 14:32 156/56 03/01/19 14:30 82 25 162/42 (82) 94 03/01/19 14:00 78 25 154/56 (88) 96 03/01/19 14:00 24 Mechanical Ventilator 100 03/01/19 13:48 79 24 97 Mechanical Ventilator 40 03/01/19 13:36 78 26 98 Mechanical Ventilator 40 03/01/19 13:30 78 24 147/54 (85) 98 03/01/19 13:30 77 24 40 03/01/19 13:00 98.2 80 24 156/65 (95) 98 03/01/19 13:00 24 Mechanical Ventilator 100 03/01/19 12:36 162/73 03/01/19 12:00 Mechanical Ventilator Mechanical Ventilator 03/01/19 12:00 40 03/01/19 12:00 79 03/01/19 12:00 24 Mechanical Ventilator 100 03/01/19 12:00 79 25 155/69 (97) 95 03/01/19 11:01 84 34 40 03/01/19 11:00 82 26 152/68 (96) 96 03/01/19 11:00 24 Mechanical Ventilator 100 03/01/19 10:00 82 28 163/68 (99) 95 03/01/19 10:00 24 Mechanical Ventilator 100 03/01/19 09:30 85 30 163/64 (97) 94 03/01/19 09:15 98.2 03/01/19 09:00 93 26 145/71 (95) 93 03/01/19 09:00 24 Mechanical Ventilator 96 03/01/19 08:45 140/60 03/01/19 08:45 24 Mechanical Ventilator 94 03/01/19 08:45 84 140/60 03/01/19 08:45 84 140/60 03/01/19 08:45 97 29 40 03/01/19 08:35 91 34 40 03/01/19 08:35 100 03/01/19 08:30 91 25 138/88 (105) 95 03/01/19 08:00 89 03/01/19 08:00 40 03/01/19 08:00 Mechanical Ventilator Mechanical Ventilator 03/01/19 08:00 98.2 93 29 160/67 (98) 96 03/01/19 07:01 84 30 140/60 (86) 95 03/01/19 06:51 86 31 100 Mechanical Ventilator 40 03/01/19 06:43 86 34 94 Mechanical Ventilator 40 03/01/19 06:42 84 30 40 03/01/19 06:30 84 26 154/66 (95) 95 03/01/19 06:00 84 21 141/87 (105) 97 03/01/19 06:00 23 Mechanical Ventilator 40 03/01/19 05:38 150/67 03/01/19 05:37 150/67 03/01/19 05:30 84 23 150/67 (94) 97 03/01/19 05:00 26 Mechanical Ventilator 40 03/01/19 05:00 26 Mechanical Ventilator 40 03/01/19 05:00 83 25 143/60 (87) 96 03/01/19 04:57 84 25 40 03/01/19 04:30 84 22 140/54 (82) 97 03/01/19 04:00 24 Mechanical Ventilator 40 03/01/19 04:00 24 Mechanical Ventilator 40 03/01/19 04:00 Mechanical Ventilator 03/01/19 04:00 98.7 84 19 142/62 (88) 96 03/01/19 03:30 82 25 151/61 (91) 97 03/01/19 03:01 88 29 40 03/01/19 03:00 86 28 143/118 (126) 100 03/01/19 03:00 27 Mechanical Ventilator 40 03/01/19 02:30 83 17 146/117 (127) 92 03/01/19 02:00 83 22 137/68 (91) 95 03/01/19 02:00 24 Mechanical Ventilator 40 03/01/19 01:32 24 Mechanical Ventilator 40 03/01/19 01:30 82 25 145/59 (87) 97 03/01/19 01:21 82 30 100 Mechanical Ventilator 40 03/01/19 01:11 81 31 98 Mechanical Ventilator 40 03/01/19 01:10 83 31 40 03/01/19 01:00 82 146/55 (85) 96 03/01/19 01:00 24 Mechanical Ventilator 40 03/01/19 00:30 81 24 143/70 (94) 99 03/01/19 00:09 40 03/01/19 00:08 85 03/01/19 00:05 Mechanical Ventilator 03/01/19 00:00 98.4 78 24 150/61 (90) 94 03/01/19 00:00 24 Mechanical Ventilator 40 02/28/19 23:47 154/59 02/28/19 23:30 79 24 154/59 (90) 95 02/28/19 23:01 81 27 40 02/28/19 23:00 23 Mechanical Ventilator 40 02/28/19 23:00 78 25 151/59 (89) 100 02/28/19 22:30 78 23 143/56 (85) 93 02/28/19 22:00 25 Mechanical Ventilator 40 02/28/19 22:00 78 26 141/63 (89) 98 02/28/19 21:51 151/43 02/28/19 21:30 78 24 151/43 (79) 100 02/28/19 21:12 83 30 40 02/28/19 21:03 152/60 02/28/19 21:03 82 152/60 02/28/19 21:00 83 25 145/62 (89) 99 02/28/19 21:00 23 Mechanical Ventilator 40 02/28/19 20:30 80 22 152/60 (90) 100 02/28/19 20:00 82 02/28/19 20:00 Mechanical Ventilator 02/28/19 20:00 40 02/28/19 20:00 82 16 159/81 (107) 99 02/28/19 20:00 23 Mechanical Ventilator 40 02/28/19 19:45 80 22 153/60 (91) 98 02/28/19 19:35 79 24 100 Mechanical Ventilator 40 02/28/19 19:30 97.9 79 23 147/61 (89) 100 02/28/19 19:25 79 26 40 02/28/19 19:25 79 26 100 Mechanical Ventilator 40 02/28/19 19:15 78 19 153/63 (93) 97 02/28/19 19:00 79 20 153/58 (89) 100 02/28/19 19:00 26 Mechanical Ventilator 40 02/28/19 18:45 76 15 147/59 (88) 98 02/28/19 18:30 75 22 142/59 (86) 98 02/28/19 18:15 74 21 145/59 (87) 98 02/28/19 18:04 147/52 02/28/19 18:00 97.6 78 23 164/63 (96) 99 02/28/19 18:00 27 Mechanical Ventilator 40 02/28/19 17:30 74 21 156/59 (91) 98 02/28/19 17:03 72 29 40 02/28/19 17:00 20 Mechanical Ventilator 40 02/28/19 17:00 72 21 151/64 (93) 98 02/28/19 16:45 72 21 149/62 (91) 99 Intake and Output 02/28/19 03/01/19 19:00 07:00 Intake Total 624.5 ml 870 ml Output Total 2070 ml 1250 ml Balance -1445.5 ml -380 ml IV Total 266.5 ml 440 ml Tube Feeding 258 ml 430 ml Other 100 ml Output Urine Total 2070 ml 1150 ml Stool Total 100 ml # Bowel Movements 30 Laboratory Tests Test 03/01/19 05:26 White Blood Count 4.2 K/UL (4.8-10.8) L Red Blood Count 2.82 M/UL (4.70-6.10) L Hemoglobin 8.1 G/DL (14.2-18.0) L Hematocrit 24.8 % (42.0-52.0) L Mean Corpuscular Volume 88 FL (80-99) Mean Corpuscular Hemoglobin 28.6 PG (27.0-31.0) Mean Corpuscular Hemoglobin Concent 32.6 G/DL (32.0-36.0) Red Cell Distribution Width 16.8 % (11.6-14.8) H Platelet Count 104 K/UL (150-450) L Mean Platelet Volume 6.1 FL (6.5-10.1) L Neutrophils (%) (Auto) % (45.0-75.0) Lymphocytes (%) (Auto) % (20.0-45.0) Monocytes (%) (Auto) % (1.0-10.0) Eosinophils (%) (Auto) % (0.0-3.0) Basophils (%) (Auto) % (0.0-2.0) Differential Total Cells Counted 100 Neutrophils % (Manual) 86 % (45-75) H Lymphocytes % (Manual) 7 % (20-45) L Monocytes % (Manual) 6 % (1-10) Eosinophils % (Manual) 1 % (0-3) Basophils % (Manual) 0 % (0-2) Band Neutrophils 0 % (0-8) Platelet Estimate Decreased L Platelet Morphology Normal Hypochromasia 2+ Anisocytosis 1+ Spherocytes 1+ Sodium Level 136 MMOL/L (136-145) Potassium Level 3.5 MMOL/L (3.5-5.1) Chloride Level 102 MMOL/L (98-107) Carbon Dioxide Level 22 MMOL/L (21-32) Anion Gap 12 mmol/L (5-15) Blood Urea Nitrogen 66 mg/dL (7-18) H Creatinine 2.6 MG/DL (0.55-1.30) H Estimat Glomerular Filtration Rate 25.4 mL/min (>60) Glucose Level 215 MG/DL (74-106) H Uric Acid 5.2 MG/DL (2.6-7.2) Calcium Level 8.7 MG/DL (8.5-10.1) Phosphorus Level 3.3 MG/DL (2.5-4.9) Magnesium Level 2.3 MG/DL (1.8-2.4) Total Bilirubin 0.4 MG/DL (0.2-1.0) Gamma Glutamyl Transpeptidase 165 U/L (5-85) H Aspartate Amino Transf (AST/SGOT) 59 U/L (15-37) H Alanine Aminotransferase (ALT/SGPT) 51 U/L (12-78) Alkaline Phosphatase 129 U/L (46-116) H C-Reactive Protein, Quantitative 8.3 mg/dL (0.00-0.90) H Pro-B-Type Natriuretic Peptide 44909 pg/mL (0-125) H Total Protein 5.5 G/DL (6.4-8.2) L Albumin 2.4 G/DL (3.4-5.0) L Globulin 3.1 g/dL Albumin/Globulin Ratio 0.8 (1.0-2.7) L Objective HEAD AND NECK: No JVD.Orally intubated with NG tube LUNGS: Coarse rhonchi. CARDIOVASCULAR: Regular S1 and S2 with no gallop or murmur. ABDOMEN: Soft. EXTREMITIES: 1 plus pitting edema. Murray Francois MD Mar 01, 2019 16:40
--- NOTE | 2019-03-01 17:00 | NUR ---
NURSE NOTES: Fentanyl drip was titrated up to 250mcg/hr to maintain RASS score of -2 light sedation. VS stable.
[2019-03-01] MEDS ORDERED: Tubing IV Secondary IV ONE (17:04)
[2019-03-01] MEDS ORDERED: NS 275ml ONE (17:04)
--- NOTE | 2019-03-01 17:10 | NUR ---
CASE MANAGEMENT:REVIEW 03/01/2019 SI: MULTILOBAR PNA ACUTE RESPIRATORY FAILURE. NSTEMI. HIV T 98.3 hr 84 rr 26 b/p 157/60 sats 96% on mech vent fio2 100 WBC 4.2 BUN 66 CR 2.6 GLU 215 GGT 165 AST 59 ALP 129 IS: IVF@100 mL/HR IV SOLU MEDROL Q12H IV DIFLUCAN Q24H IV BACTRIM Q12H IV ZOSYN Q12H FENTANYL GTT VERSED GTT INSULIN SQ Q4HRS ISORDIL NG Q6HRS NORVASC NG QD DUONEB HHN Q4HRS : ICU STATUS PLAN OF CARE: scheduled for Tracheostomy tomorrow
--- NOTE | 2019-03-01 18:00 | NUR ---
NURSE NOTES: Pt was cleaned, dressing changed, gown/bed linens changed. Simon bag emptied. Fentanyl drip is maintained at 250mcg/hr to maintain RASS score of -2 light sedation. VS stable. Pt is repositioned with bilateral extremities elevated on pillows.
--- NOTE | 2019-03-01 19:24 | NUR ---
HAND-OFF: Report given to Noam RN. VS stable. Endorsed plan of care.
--- NOTE | 2019-03-01 19:30 | NUR ---
NURSE NOTES: Received report from TESSA Duval. Pt's in no apparent distress; eyes opens to name/pain. Mildly restless; grimacing constantly and attempting to get out of restraints. Remains orally intubated and appears tolerating current vent parameters; saturating 100% on 40% fiO2. ETT#7.5 placed over right lip line at 24cm. Secretions mod amt. Chest sounds with scattered rhonchi. Afebrile; NSR on the scope; BP stable. PICC on KATIE intact with IV at TKO. Fentanyl gtt infuses at 250mcg/h to RASS-2. Pt has generalized edema. NGT to left nare intact with Nepro running at 43ml/h with 0 residuals. Rectal tube in place, draining dark brown liquid stools. FC patent; UOP 100ml/h; dark scott. Bilat soft wrist restraints maintained. Will monitor VS and sedation status.
--- NOTE | 2019-03-01 20:28 | Neurology Progress Note ---
Interim History Interim History ROS Limited/Unobtainable: Yes Complaints: AMS Interim History pending trach Objective Physical Exam Last Vital Signs Date Time Temp Pulse Resp B/P (MAP) Pulse Ox O2 Delivery O2 Flow Rate FiO2 03/01/19 19:17 78 29 98 Mechanical Ventilator 40 03/01/19 19:00 144/58 (86) 03/01/19 17:31 98.3 02/26/19 12:53 75.0 Laboratory Tests Test 03/01/19 05:26 White Blood Count 4.2 K/UL (4.8-10.8) L Red Blood Count 2.82 M/UL (4.70-6.10) L Hemoglobin 8.1 G/DL (14.2-18.0) L Hematocrit 24.8 % (42.0-52.0) L Mean Corpuscular Volume 88 FL (80-99) Mean Corpuscular Hemoglobin 28.6 PG (27.0-31.0) Mean Corpuscular Hemoglobin Concent 32.6 G/DL (32.0-36.0) Red Cell Distribution Width 16.8 % (11.6-14.8) H Platelet Count 104 K/UL (150-450) L Mean Platelet Volume 6.1 FL (6.5-10.1) L Neutrophils (%) (Auto) % (45.0-75.0) Lymphocytes (%) (Auto) % (20.0-45.0) Monocytes (%) (Auto) % (1.0-10.0) Eosinophils (%) (Auto) % (0.0-3.0) Basophils (%) (Auto) % (0.0-2.0) Differential Total Cells Counted 100 Neutrophils % (Manual) 86 % (45-75) H Lymphocytes % (Manual) 7 % (20-45) L Monocytes % (Manual) 6 % (1-10) Eosinophils % (Manual) 1 % (0-3) Basophils % (Manual) 0 % (0-2) Band Neutrophils 0 % (0-8) Platelet Estimate Decreased L Platelet Morphology Normal Hypochromasia 2+ Anisocytosis 1+ Spherocytes 1+ Sodium Level 136 MMOL/L (136-145) Potassium Level 3.5 MMOL/L (3.5-5.1) Chloride Level 102 MMOL/L (98-107) Carbon Dioxide Level 22 MMOL/L (21-32) Anion Gap 12 mmol/L (5-15) Blood Urea Nitrogen 66 mg/dL (7-18) H Creatinine 2.6 MG/DL (0.55-1.30) H Estimat Glomerular Filtration Rate 25.4 mL/min (>60) Glucose Level 215 MG/DL (74-106) H Uric Acid 5.2 MG/DL (2.6-7.2) Calcium Level 8.7 MG/DL (8.5-10.1) Phosphorus Level 3.3 MG/DL (2.5-4.9) Magnesium Level 2.3 MG/DL (1.8-2.4) Total Bilirubin 0.4 MG/DL (0.2-1.0) Gamma Glutamyl Transpeptidase 165 U/L (5-85) H Aspartate Amino Transf (AST/SGOT) 59 U/L (15-37) H Alanine Aminotransferase (ALT/SGPT) 51 U/L (12-78) Alkaline Phosphatase 129 U/L (46-116) H C-Reactive Protein, Quantitative 8.3 mg/dL (0.00-0.90) H Pro-B-Type Natriuretic Peptide 46483 pg/mL (0-125) H Total Protein 5.5 G/DL (6.4-8.2) L Albumin 2.4 G/DL (3.4-5.0) L Globulin 3.1 g/dL Albumin/Globulin Ratio 0.8 (1.0-2.7) L General: well developed, well nourished, other Head: normocophalic, other Neck: no rigidity EENT: benign, other Neurologic Exam Mental Status: other Speech: other Language: other Cranial Nerve II: other Cranial Nerves III, IV, : other Cranial Nerve V: other Cranial Nerve VII: other Cranial Nerve VIII: other Cranial Nerve IX: other Cranial Nerve X: other Cranial Nerve XI: other Cranial Nerve XII: other Motor System: other Sensory: other Coordination: other Deep Tendon Reflexes: 0 bicep (L), 0 bicep (R), 0 tricep (L), 0 tricep (R), 0 brachioradialis (L), 0 brachioradialis (R), 0 knee (L), 0 knee (R), 0 ankle (L) , 0 ankle (R) Reflexes: mute plantar (L), mute plantar (R) Stance: other Gait: other Objective he is intubated and sedated. pupils are symmetric and reactive corneals present he withdraws to noxious stimuli without localizing. 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 (33) acute small R pontomedullary and left cerebellar peduncle strokes. 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
--- NOTE | 2019-03-01 20:40 | General Progress Note ---
Assessment/Plan Status: stable Assessment/Plan: 58 y Male admitted to the hospital due to fever, shortness of breath and chest pain. # Multilobar pneumonia in patient with HIV - Broad sp atbx started. Continue Zosyn, Vancomycin, Azithromycin, TM-SMX - Fluconazole per ID - Droplet precaution - Flu swab ordered. - Oxygen support, ventilatory support as not able to wean off ventilator due to agitation. Consider change of sedation agent from Fentanyl to Versed if indicated. - ID consult appreciated. Discussed today and monitor renal function as possibly change in creatinine due to TM-SMX -s/p PICC line, # Hypoxemic respiratory failure - Critical care follow up. Unable to wean off the ventilatior. - SBT today - tolerated only 10 min - Plan for tracheostomy in AM -Pt has no family to consent. Tracheostomy is urgent for the patient, two physician signed consent # Chest pain - EKG with bifascicular block RBB and LAFB, no ST changes. - Trend troponin x3 completed - ECHO completed with no WMA and preserved EF. Dr. Francois consulted. Consideration for outpatient cath vs possibly myocarditis due to underlying viral infection. No evidence of Takotsubo per TTE. - NGT prn - Pain control with morphine # HIV - Continue HARRT - VL is undetectable per patient report. T cell count > 400 - CD 4 count 191 # HTN - Resume home medication - Clonidine, Isordil added today. 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 - plan to remove femoral access after PICC placement - Lasix 40 IV x 1 today -monitor renal fct and fluid status DVT and GI ppx Full code A total of 35 mins of critical care time was spent on this patient, dealing with hypoxemic resp failure requiring continuous mechanical ventilation, reviewing telemetry data, discussion with bedside VALIDATION SPECIALIST Subjective Date patient seen: Mar 01, 2019 Allergies: Coded Allergies: No Known Allergies (Unverified , 02/05/13) Subjective Pt remains intubated and sedated, tolerated SBT for 5 hours yesterday, however desaturated after 10 minutes today, Plan for trach in AM. Objective Last 24 Hour Vital Signs Date Time Temp Pulse Resp B/P (MAP) Pulse Ox O2 Delivery O2 Flow Rate FiO2 03/01/19 19:17 78 29 98 Mechanical Ventilator 40 03/01/19 19:09 85 28 97 Mechanical Ventilator 40 03/01/19 19:08 86 26 40 03/01/19 19:00 24 Mechanical Ventilator 100 03/01/19 19:00 88 23 144/58 (86) 97 03/01/19 18:30 91 159/65 (96) 95 03/01/19 18:24 157/60 03/01/19 18:00 88 164/64 (97) 97 03/01/19 18:00 24 Mechanical Ventilator 100 03/01/19 17:31 98.3 03/01/19 17:30 86 25 169/85 (113) 95 03/01/19 17:01 24 Mechanical Ventilator 100 03/01/19 17:00 87 26 171/65 (100) 94 03/01/19 16:53 82 29 40 03/01/19 16:00 82 03/01/19 16:00 40 03/01/19 16:00 Mechanical Ventilator Mechanical Ventilator 03/01/19 16:00 98.3 84 26 157/60 (92) 96 03/01/19 16:00 24 Mechanical Ventilator 100 03/01/19 15:00 80 19 144/53 (83) 97 03/01/19 15:00 24 Mechanical Ventilator 100 03/01/19 14:42 82 26 40 03/01/19 14:32 156/56 03/01/19 14:30 82 25 162/42 (82) 94 03/01/19 14:00 78 25 154/56 (88) 96 03/01/19 14:00 24 Mechanical Ventilator 100 03/01/19 13:48 79 24 97 Mechanical Ventilator 40 03/01/19 13:36 78 26 98 Mechanical Ventilator 40 03/01/19 13:30 78 24 147/54 (85) 98 03/01/19 13:30 77 24 40 03/01/19 13:00 98.2 80 24 156/65 (95) 98 03/01/19 13:00 24 Mechanical Ventilator 100 03/01/19 12:36 162/73 03/01/19 12:00 Mechanical Ventilator Mechanical Ventilator 03/01/19 12:00 40 03/01/19 12:00 79 03/01/19 12:00 24 Mechanical Ventilator 100 03/01/19 12:00 79 25 155/69 (97) 95 03/01/19 11:01 84 34 40 03/01/19 11:00 82 26 152/68 (96) 96 03/01/19 11:00 24 Mechanical Ventilator 100 03/01/19 10:00 82 28 163/68 (99) 95 03/01/19 10:00 24 Mechanical Ventilator 100 03/01/19 09:30 85 30 163/64 (97) 94 03/01/19 09:00 93 26 145/71 (95) 93 03/01/19 09:00 24 Mechanical Ventilator 96 03/01/19 08:45 140/60 03/01/19 08:45 24 Mechanical Ventilator 94 03/01/19 08:45 84 140/60 03/01/19 08:45 84 140/60 03/01/19 08:45 97 29 40 03/01/19 08:35 91 34 40 03/01/19 08:35 100 03/01/19 08:30 91 25 138/88 (105) 95 03/01/19 08:00 89 03/01/19 08:00 40 03/01/19 08:00 Mechanical Ventilator Mechanical Ventilator 03/01/19 08:00 98.2 93 29 160/67 (98) 96 03/01/19 07:01 84 30 140/60 (86) 95 03/01/19 06:51 86 31 100 Mechanical Ventilator 40 03/01/19 06:43 86 34 94 Mechanical Ventilator 40 03/01/19 06:42 84 30 40 03/01/19 06:30 84 26 154/66 (95) 95 03/01/19 06:00 84 21 141/87 (105) 97 03/01/19 06:00 23 Mechanical Ventilator 40 03/01/19 05:38 150/67 03/01/19 05:37 150/67 03/01/19 05:30 84 23 150/67 (94) 97 03/01/19 05:00 26 Mechanical Ventilator 40 03/01/19 05:00 26 Mechanical Ventilator 40 03/01/19 05:00 83 25 143/60 (87) 96 03/01/19 04:57 84 25 40 03/01/19 04:30 84 22 140/54 (82) 97 03/01/19 04:00 24 Mechanical Ventilator 40 03/01/19 04:00 24 Mechanical Ventilator 40 03/01/19 04:00 Mechanical Ventilator 03/01/19 04:00 98.7 84 19 142/62 (88) 96 03/01/19 03:30 82 25 151/61 (91) 97 03/01/19 03:01 88 29 40 03/01/19 03:00 86 28 143/118 (126) 100 03/01/19 03:00 27 Mechanical Ventilator 40 03/01/19 02:30 83 17 146/117 (127) 92 03/01/19 02:00 83 22 137/68 (91) 95 03/01/19 02:00 24 Mechanical Ventilator 40 03/01/19 01:32 24 Mechanical Ventilator 40 03/01/19 01:30 82 25 145/59 (87) 97 03/01/19 01:21 82 30 100 Mechanical Ventilator 40 03/01/19 01:11 81 31 98 Mechanical Ventilator 40 03/01/19 01:10 83 31 40 03/01/19 01:00 82 146/55 (85) 96 03/01/19 01:00 24 Mechanical Ventilator 40 03/01/19 00:30 81 24 143/70 (94) 99 03/01/19 00:09 40 03/01/19 00:08 85 03/01/19 00:05 Mechanical Ventilator 03/01/19 00:00 98.4 78 24 150/61 (90) 94 03/01/19 00:00 24 Mechanical Ventilator 40 02/28/19 23:47 154/59 02/28/19 23:30 79 24 154/59 (90) 95 02/28/19 23:01 81 27 40 02/28/19 23:00 23 Mechanical Ventilator 40 02/28/19 23:00 78 25 151/59 (89) 100 02/28/19 22:30 78 23 143/56 (85) 93 02/28/19 22:00 25 Mechanical Ventilator 40 02/28/19 22:00 78 26 141/63 (89) 98 02/28/19 21:51 151/43 02/28/19 21:30 78 24 151/43 (79) 100 02/28/19 21:12 83 30 40 02/28/19 21:03 152/60 02/28/19 21:03 82 152/60 02/28/19 21:00 83 25 145/62 (89) 99 02/28/19 21:00 23 Mechanical Ventilator 40 Intake and Output 02/28/19 03/01/19 19:00 07:00 Intake Total 624.5 ml 870 ml Output Total 2070 ml 1250 ml Balance -1445.5 ml -380 ml IV Total 266.5 ml 440 ml Tube Feeding 258 ml 430 ml Other 100 ml Output Urine Total 2070 ml 1150 ml Stool Total 100 ml # Bowel Movements 30 Laboratory Tests 03/01/19 05:26: White Blood Count 4.2L, Red Blood Count 2.82L, Hemoglobin 8.1L, Hematocrit 24.8L , Mean Corpuscular Volume 88, Mean Corpuscular Hemoglobin 28.6, Mean Corpuscular Hemoglobin Concent 32.6, Red Cell Distribution Width 16.8H, Platelet Count 104L, Mean Platelet Volume 6.1L, Neutrophils (%) (Auto) , Lymphocytes (%) (Auto) , Monocytes (%) (Auto) , Eosinophils (%) (Auto) , Basophils (%) (Auto) , Differential Total Cells Counted 100, Neutrophils % ( Manual) 86H, Lymphocytes % (Manual) 7L, Monocytes % (Manual) 6, Eosinophils % ( Manual) 1, Basophils % (Manual) 0, Band Neutrophils 0, Platelet Estimate DecreasedL, Platelet Morphology Normal, Hypochromasia 2+, Anisocytosis 1+, Spherocytes 1+, Sodium Level 136, Potassium Level 3.5, Chloride Level 102, Carbon Dioxide Level 22, Anion Gap 12, Blood Urea Nitrogen 66H, Creatinine 2.6H , Estimat Glomerular Filtration Rate 25.4, Glucose Level 215H, Uric Acid 5.2, Calcium Level 8.7, Phosphorus Level 3.3, Magnesium Level 2.3, Total Bilirubin 0.4, Gamma Glutamyl Transpeptidase 165H, Aspartate Amino Transf (AST/SGOT) 59H, Alanine Aminotransferase (ALT/SGPT) 51, Alkaline Phosphatase 129H, C-Reactive Protein, Quantitative 8.3H, Pro-B-Type Natriuretic Peptide 00285V, Total Protein 5.5L, Albumin 2.4L, Globulin 3.1, Albumin/Globulin Ratio 0.8L Height (Feet): 6 Height (Inches): 0.00 Weight (Pounds): 268 Objective General Appearance: intubated, no agitation EENT: intubated Neck: non-tender, normal alignment Cardiovascular: normal peripheral pulses, normal rate Respiratory/Chest: chest wall non-tender, lungs clear Abdomen: normal bowel sounds, non tender Extremities: normal range of motion, non-tender Edema: trace edema 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
[2019-03-01] MEDS: Dyna-Hex 2% Top Sol 2oz TOPIC SCH (20:44)
[2019-03-01] MEDS: Miralax 17gm pkt ORAL SCH (20:44)
[2019-03-01] MEDS: Maxitrol Opth Oint 3.5gm BOTH EYES SCH (20:46)
--- NOTE | 2019-03-01 22:00 | NUR ---
NURSE NOTES: Pt's resting in bed, in no acute distress. VS stable, continue with Fentanyl at 250mcg/hr, to keep RASS-2. Will continue to monitor.
[2019-03-01] MEDS: LORazepam Inj 2mg/ml 1ml IV PRN (23:51)
[2019-03-02] VITALS (32 sets, daily range): BP systolic 125–169; BP diastolic 49–96
--- NOTE | 2019-03-02 | NUR ---
NURSE NOTES: Pt's resting in bed, in no acute distress. VS stable, continue with Fentanyl at 250mcg/hr, to keep RASS-2. Will continue to monitor.
[2019-03-02] MEDS: NovoLOG Insulin Flexpen SUBQ SCH ×4 (00:29→17:23)
[2019-03-02] MEDS: Metoclopramide 10mg/2ml Inj IVP SCH ×3 (00:29→17:01)
[2019-03-02] MEDS: Albuterol/Ipratropium 3ml neb HHN SCH ×4 (01:14→19:05)
--- NOTE | 2019-03-02 02:00 | NUR ---
NURSE NOTES: Pt's resting in bed, in no acute distress. VS stable, continue with Fentanyl at 250mcg/hr, to keep RASS-2. Will continue to monitor.
--- NOTE | 2019-03-02 04:00 | NUR ---
NURSE NOTES: Pt's resting in bed, in no acute distress. VS stable, continue with Fentanyl at 250mcg/hr, to keep RASS-2. Will continue to monitor.
[2019-03-02] MEDS: fentaNYL Citrate 2500mcg in NS 250ml IV SCH ×2 (04:09→17:40)
[2019-03-02 05:39] LABS: HEMATOCRIT 24.3 % (42.0-52.0); HEMOGLOBIN 7.9 G/DL (14.2-18.0); MEAN CORPUSCULAR VOLUME 87 FL (80-99); PLATELET COUNT 100 K/UL (150-450); RED BLOOD COUNT 2.78 M/UL (4.70-6.10); RED CELL DISTRIBUTION WIDTH 16.8 % (11.6-14.8); WHITE BLOOD COUNT 3.5 K/UL (4.8-10.8)
[2019-03-02 05:53] LABS: INR 1.1 (0.9-1.1)
[2019-03-02 05:58] LABS: ANION GAP 9 mmol/L (5-15); BLOOD UREA NITROGEN 56 mg/dL (7-18); CALCIUM 8.9 MG/DL (8.5-10.1); CARBON DIOXIDE 25 MMOL/L (21-32); CHLORIDE 105 MMOL/L (98-107); CREATININE 2.3 MG/DL (0.55-1.30); PHOSPHORUS 2.7 MG/DL (2.5-4.9); POTASSIUM 3.1 MMOL/L (3.5-5.1); SODIUM 139 MMOL/L (136-145)
--- NOTE | 2019-03-02 06:00 | NUR ---
NURSE NOTES: Pt's resting in bed, in no acute distress. VS stable, continue with Fentanyl at 250mcg/hr, to keep RASS-2. NPO at this time. Will continue to monitor.
[2019-03-02] MEDS: Clindamycin 900mg 50 ML IV SCH ×3 (06:26→22:11)
[2019-03-02] MEDS: HydrALAZINE 50mg tab NG SCH ×3 (06:27→22:11)
[2019-03-02] MEDS: Lacri-Lube Opth Oint 3.5gm BOTH EYES SCH ×4 (06:31→20:23)
--- NOTE | 2019-03-02 07:00 | NUR ---
HAND-OFF: Report given to TESSA Duval.
--- NOTE | 2019-03-02 07:10 | NUR ---
NURSE NOTES: Received change of shift report from Noam RN. Pt is maintained on RASS score of -2 light sedation while on Fentanyl drip at 250mcg/hr. Pt has bilateral soft wrist restraints in place to prevent self-extubation, as he is noted to move extremities and attempt to reach/pull ET tube. Pt withdraws to pain. Orally intubated ETT 7.5 at 24cm right lipline, AC24, FIO2 40%, Peep 5.0, VT550, with O2sat at 99%, and with bilateral rhonchi/rales on auscultation. vehicle monitor technician displays NSR with heart rate in the 70's, and generalized including bilateral peripheral edema, with weak radial/pedal pulses on palpation. Central line IV access present on right upper arm PICC, currently TKO and Fentanyl drip. Pt has left NGT in place, patent/intact, feeding is currently on hold per order in anticipation of scheduled trach placement today at noon. Abdomen is large, round, moderately hard/nontender to touch with hypoactive bowel sounds present on all quadrants. Rectal tube is in place draining soft/liquid brown stool. Simon catheter is in place draining cloudy/dark scott urine with sediments. Pt has scrotal edema. Bilateral SCDs are present on lower extremities for DVT prophylaxis. Pt is on P200 mattress, with head of bed at 30degress, three side rails up, bed locked/in lowest position and call light within reach. Will continue to monitor pt and follow plan of care per MD orders and protocol.
--- NOTE | 2019-03-02 07:12 | NUR ---
RESPIRATORY NOTE: received pt on current vent settings, orally intubated with ETT 7.5 placd 24cm at the lip. ETT secured via anchor fast with no redness or skin breakdowns. no resp distress noted at this time. will attempt to wean later this morning. alarms are set and audible with ambu bag at bedside. will cont to monitor.
--- NOTE | 2019-03-02 08:00 | NUR ---
NURSE NOTES: Fentanyl drip has been titrated to 300mcg/hr to maintain RASS score of -2 light sedation. VS stable. Oral care done. Pt has been suctioned, with minimal output of clear secretion.
--- NOTE | 2019-03-02 08:19 | General Progress Note ---
Assessment/Plan Status: stable Assessment/Plan: 1. History of HIV. 2. Hypertension. 3. Vertigo. 4. History of headaches. 5. History of diabetes. 6. Respiratory failure 7. Dysphagia 8. ileus stable H&H NGTF>>>on hold for possible trach ppi fu H&H prn blood transfusion ppi low dose reglan plan PEG for Tuesday Subjective ROS Limited/Unobtainable: No Allergies: Coded Allergies: No Known Allergies (Unverified , 02/05/13) Objective Last 24 Hour Vital Signs Date Time Temp Pulse Resp B/P (MAP) Pulse Ox O2 Delivery O2 Flow Rate FiO2 03/02/19 07:20 78 24 98 Mechanical Ventilator 40 03/02/19 07:10 81 24 99 Mechanical Ventilator 40 03/02/19 07:00 75 18 128/52 (77) 98 03/02/19 06:56 75 26 40 03/02/19 06:30 77 16 141/56 (84) 98 03/02/19 06:27 143/56 03/02/19 06:27 143/56 03/02/19 06:00 98.5 78 19 143/56 (85) 98 03/02/19 05:30 77 18 148/56 (86) 98 03/02/19 05:00 18 Mechanical Ventilator 03/02/19 05:00 77 19 147/67 (93) 98 03/02/19 04:51 79 25 40 03/02/19 04:30 73 15 133/51 (78) 99 03/02/19 04:09 17 Mechanical Ventilator 03/02/19 04:00 Mechanical Ventilator Mechanical Ventilator 03/02/19 04:00 40 03/02/19 04:00 18 Mechanical Ventilator 03/02/19 04:00 76 03/02/19 04:00 76 15 133/61 (85) 99 03/02/19 03:30 83 18 169/65 (99) 98 03/02/19 03:00 73 11 139/59 (85) 98 03/02/19 03:00 18 Mechanical Ventilator 03/02/19 02:32 73 24 40 03/02/19 02:30 73 11 139/59 (85) 98 03/02/19 02:00 20 Mechanical Ventilator 03/02/19 02:00 76 13 143/65 (91) 98 03/02/19 01:30 85 21 156/70 (98) 96 03/02/19 01:25 76 27 99 Mechanical Ventilator 40 03/02/19 01:14 79 27 99 Mechanical Ventilator 40 03/02/19 01:12 80 25 40 03/02/19 01:00 18 Mechanical Ventilator 03/02/19 01:00 83 18 156/70 (98) 97 03/02/19 00:30 80 12 151/59 (89) 97 03/02/19 00:28 158/64 03/02/19 00:00 Mechanical Ventilator Mechanical Ventilator 03/02/19 00:00 76 03/02/19 00:00 80 15 158/64 (95) 97 03/02/19 00:00 20 Mechanical Ventilator 03/01/19 23:30 81 22 159/59 (92) 98 03/01/19 23:10 81 24 40 03/01/19 23:00 20 Mechanical Ventilator 03/01/19 23:00 80 17 157/71 (99) 97 03/01/19 22:43 154/59 03/01/19 22:30 78 19 154/59 (90) 97 03/01/19 22:00 78 19 158/58 (91) 97 03/01/19 22:00 20 Mechanical Ventilator 03/01/19 21:22 162/72 03/01/19 21:10 81 25 40 03/01/19 21:00 17 Mechanical Ventilator 03/01/19 21:00 91 21 157/58 (91) 94 03/01/19 20:44 92 157/65 03/01/19 20:30 92 21 157/65 (95) 96 03/01/19 20:00 79 03/01/19 20:00 Mechanical Ventilator Mechanical Ventilator 03/01/19 20:00 98.5 89 22 151/61 (91) 97 03/01/19 20:00 17 Mechanical Ventilator 03/01/19 20:00 40 03/01/19 19:17 78 29 98 Mechanical Ventilator 40 03/01/19 19:09 85 28 97 Mechanical Ventilator 40 03/01/19 19:08 86 26 40 03/01/19 19:00 24 Mechanical Ventilator 100 03/01/19 19:00 88 23 144/58 (86) 97 03/01/19 18:30 91 159/65 (96) 95 03/01/19 18:24 157/60 03/01/19 18:00 88 164/64 (97) 97 03/01/19 18:00 24 Mechanical Ventilator 100 03/01/19 17:31 98.3 03/01/19 17:30 86 25 169/85 (113) 95 03/01/19 17:01 24 Mechanical Ventilator 100 03/01/19 17:00 87 26 171/65 (100) 94 03/01/19 16:53 82 29 40 03/01/19 16:00 82 03/01/19 16:00 40 03/01/19 16:00 Mechanical Ventilator Mechanical Ventilator 03/01/19 16:00 98.3 84 26 157/60 (92) 96 03/01/19 16:00 24 Mechanical Ventilator 100 03/01/19 15:00 80 19 144/53 (83) 97 03/01/19 15:00 24 Mechanical Ventilator 100 03/01/19 14:42 82 26 40 03/01/19 14:32 156/56 03/01/19 14:30 82 25 162/42 (82) 94 03/01/19 14:00 78 25 154/56 (88) 96 03/01/19 14:00 24 Mechanical Ventilator 100 03/01/19 13:48 79 24 97 Mechanical Ventilator 40 03/01/19 13:36 78 26 98 Mechanical Ventilator 40 03/01/19 13:30 78 24 147/54 (85) 98 03/01/19 13:30 77 24 40 03/01/19 13:00 98.2 80 24 156/65 (95) 98 03/01/19 13:00 24 Mechanical Ventilator 100 03/01/19 12:36 162/73 03/01/19 12:00 Mechanical Ventilator Mechanical Ventilator 03/01/19 12:00 40 03/01/19 12:00 79 03/01/19 12:00 24 Mechanical Ventilator 100 03/01/19 12:00 79 25 155/69 (97) 95 03/01/19 11:01 84 34 40 03/01/19 11:00 82 26 152/68 (96) 96 03/01/19 11:00 24 Mechanical Ventilator 100 03/01/19 10:00 82 28 163/68 (99) 95 03/01/19 10:00 24 Mechanical Ventilator 100 03/01/19 09:30 85 30 163/64 (97) 94 03/01/19 09:00 93 26 145/71 (95) 93 03/01/19 09:00 24 Mechanical Ventilator 96 03/01/19 08:45 140/60 03/01/19 08:45 24 Mechanical Ventilator 94 03/01/19 08:45 84 140/60 03/01/19 08:45 84 140/60 03/01/19 08:45 97 29 40 03/01/19 08:35 91 34 40 03/01/19 08:35 100 03/01/19 08:30 91 25 138/88 (105) 95 Intake and Output 03/01/19 03/02/19 18:59 06:59 Intake Total 887.5 ml 740 ml Output Total 1635 ml 1290 ml Balance -747.5 ml -550 ml Free Water 60 ml 150 ml IV Total 397.5 ml 375 ml Tube Feeding 430 ml 215 ml Output Urine Total 1635 ml 1250 ml Stool Total 40 ml Laboratory Tests 03/02/19 05:01: White Blood Count 3.5L, Red Blood Count 2.78L, Hemoglobin 7.9L, Hematocrit 24.3L , Mean Corpuscular Volume 87, Mean Corpuscular Hemoglobin 28.4, Mean Corpuscular Hemoglobin Concent 32.5, Red Cell Distribution Width 16.8H, Platelet Count 100L, Mean Platelet Volume 5.8L, Neutrophils (%) (Auto) , Lymphocytes (%) (Auto) , Monocytes (%) (Auto) , Eosinophils (%) (Auto) , Basophils (%) (Auto) , Neutrophils % (Manual) [Pending], Lymphocytes % (Manual) [Pending], Platelet Estimate [Pending], Platelet Morphology [Pending], Prothrombin Time 11.7H, Prothromb Time International Ratio 1.1, Activated Partial Thromboplast Time 34H, Sodium Level 139, Potassium Level 3.1L, Chloride Level 105, Carbon Dioxide Level 25, Anion Gap 9, Blood Urea Nitrogen 56H, Creatinine 2.3H, Estimat Glomerular Filtration Rate 29.2, Glucose Level 192H, Calcium Level 8.9, Phosphorus Level 2.7, Magnesium Level 2.2 Height (Feet): 6 Height (Inches): 0.00 Weight (Pounds): 200 General Appearance: lethargic EENT: normal ENT inspection Neck: supple Cardiovascular: normal rate Respiratory/Chest: decreased breath sounds Extremities: non-tender Kg Ricketts MD Mar 02, 2019 08:19
[2019-03-02] MEDS: guaiFENesin ER 600mg tab ORAL SCH ×2 (08:23→17:01)
[2019-03-02] MEDS: Sennosides 8.6mg tab ORAL SCH (08:23)
[2019-03-02] MEDS: Primaquine 26.3mg(=15mg base) Tab ORAL SCH (08:23)
[2019-03-02] MEDS: Docusate 100mg/10ml Liq GT SCH ×3 (08:25→17:03)
[2019-03-02] MEDS: Pantoprazole Inj IVP SCH (08:25)
[2019-03-02] MEDS: Heparin 5000 units/ml inj SUBQ SCH ×2 (08:28→20:25)
--- NOTE | 2019-03-02 08:30 | NUR ---
NURSE NOTES: Pt was seen by Dr Meredith. Order received for KCL 40meq IV x1 for K level 3.1. Will process and follow. MD aware regarding scheduled trach placement today at noon. No other orders at this time.
[2019-03-02] MEDS: Levemir Flexpen SUBQ SCH ×2 (08:32→20:37)
--- NOTE | 2019-03-02 08:33 | Pulmonolgy Critical Care Note ---
Critical Care - Asmt/Plan Problems: (1) Endotracheally intubated (2) Acute hypoxemic respiratory failure (3) Pneumonia (4) NSTEMI (non-ST elevated myocardial infarction) (5) AIDS (6) HIV disease (7) Hypertension (8) MDD (major depressive disorder), recurrent episode, moderate (9) Anemia (10) CKD (chronic kidney disease) (11) History of stroke (12) Diabetes (13) Anxiety (14) Malignant hypertension (15) Occult blood positive stool Assessment/Plan: VDRF, extubated 02/19, re-intubated 02/20 Hemoptysis, hematemesis ARDS Acute respiratory failure B pulmonary infiltrates, ? multilobar CAP vs atypical infection vs other ? PJP AIDS (CD4 191) NSTEMI H/O prior CVA HTN HL DM with uncontrolled BS ISH on CKD Anemia, FOBT + PLAN: Continue ventilatory support/settings reviewed Plan for TRACH today Keep PEEP 5, titrate down FiO2 to keep SaO2 > 90% RTC and PRN HHN's Continue Abx per ID (Clinda/Primaqui, Cefepime) + flucon per ID Off steroids Monitor volumes and renal function --> D/W Tamara Rachel, continue Zaroxyln 10 and lasix 40 IV qDaily - so far renal fxn improving with diuresis F/U cards recs: will need further ischemia eval/cath once stabilized DVT Px: Hep SQ (held for trach) Monitor for bleeding, F/U GI recs, transfuse PRN Hb < 7 F/U ENDO recs TF's as celestino (held for trach) FC, continue to discuss GOC D/W RN and RT @ bedside CCT 35 Critical Care - Objective Last 24 Hour Vital Signs Date Time Temp Pulse Resp B/P (MAP) Pulse Ox O2 Delivery O2 Flow Rate FiO2 03/02/19 08:22 84 139/54 03/02/19 08:22 84 139/54 03/02/19 07:20 78 24 98 Mechanical Ventilator 40 03/02/19 07:10 81 24 99 Mechanical Ventilator 40 03/02/19 07:00 75 18 128/52 (77) 98 03/02/19 06:56 75 26 40 03/02/19 06:30 77 16 141/56 (84) 98 03/02/19 06:27 143/56 03/02/19 06:27 143/56 03/02/19 06:00 98.5 78 19 143/56 (85) 98 03/02/19 05:30 77 18 148/56 (86) 98 03/02/19 05:00 18 Mechanical Ventilator 03/02/19 05:00 77 19 147/67 (93) 98 03/02/19 04:51 79 25 40 03/02/19 04:30 73 15 133/51 (78) 99 03/02/19 04:09 17 Mechanical Ventilator 03/02/19 04:00 Mechanical Ventilator Mechanical Ventilator 03/02/19 04:00 40 03/02/19 04:00 18 Mechanical Ventilator 03/02/19 04:00 76 03/02/19 04:00 76 15 133/61 (85) 99 03/02/19 03:30 83 18 169/65 (99) 98 03/02/19 03:00 73 11 139/59 (85) 98 03/02/19 03:00 18 Mechanical Ventilator 03/02/19 02:32 73 24 40 03/02/19 02:30 73 11 139/59 (85) 98 03/02/19 02:00 20 Mechanical Ventilator 03/02/19 02:00 76 13 143/65 (91) 98 03/02/19 01:30 85 21 156/70 (98) 96 03/02/19 01:25 76 27 99 Mechanical Ventilator 40 03/02/19 01:14 79 27 99 Mechanical Ventilator 40 03/02/19 01:12 80 25 40 03/02/19 01:00 18 Mechanical Ventilator 03/02/19 01:00 83 18 156/70 (98) 97 03/02/19 00:30 80 12 151/59 (89) 97 03/02/19 00:28 158/64 03/02/19 00:00 Mechanical Ventilator Mechanical Ventilator 03/02/19 00:00 76 03/02/19 00:00 80 15 158/64 (95) 97 03/02/19 00:00 20 Mechanical Ventilator 03/01/19 23:30 81 22 159/59 (92) 98 03/01/19 23:10 81 24 40 03/01/19 23:00 20 Mechanical Ventilator 03/01/19 23:00 80 17 157/71 (99) 97 03/01/19 22:43 154/59 03/01/19 22:30 78 19 154/59 (90) 97 03/01/19 22:00 78 19 158/58 (91) 97 03/01/19 22:00 20 Mechanical Ventilator 03/01/19 21:22 162/72 03/01/19 21:10 81 25 40 03/01/19 21:00 17 Mechanical Ventilator 03/01/19 21:00 91 21 157/58 (91) 94 03/01/19 20:44 92 157/65 03/01/19 20:30 92 21 157/65 (95) 96 03/01/19 20:00 79 03/01/19 20:00 Mechanical Ventilator Mechanical Ventilator 03/01/19 20:00 98.5 89 22 151/61 (91) 97 03/01/19 20:00 17 Mechanical Ventilator 03/01/19 20:00 40 03/01/19 19:17 78 29 98 Mechanical Ventilator 40 03/01/19 19:09 85 28 97 Mechanical Ventilator 40 03/01/19 19:08 86 26 40 03/01/19 19:00 24 Mechanical Ventilator 100 03/01/19 19:00 88 23 144/58 (86) 97 03/01/19 18:30 91 159/65 (96) 95 03/01/19 18:24 157/60 03/01/19 18:00 88 164/64 (97) 97 03/01/19 18:00 24 Mechanical Ventilator 100 03/01/19 17:31 98.3 03/01/19 17:30 86 25 169/85 (113) 95 03/01/19 17:01 24 Mechanical Ventilator 100 03/01/19 17:00 87 26 171/65 (100) 94 03/01/19 16:53 82 29 40 03/01/19 16:00 82 03/01/19 16:00 40 03/01/19 16:00 Mechanical Ventilator Mechanical Ventilator 03/01/19 16:00 98.3 84 26 157/60 (92) 96 03/01/19 16:00 24 Mechanical Ventilator 100 03/01/19 15:00 80 19 144/53 (83) 97 03/01/19 15:00 24 Mechanical Ventilator 100 03/01/19 14:42 82 26 40 03/01/19 14:32 156/56 03/01/19 14:30 82 25 162/42 (82) 94 03/01/19 14:00 78 25 154/56 (88) 96 03/01/19 14:00 24 Mechanical Ventilator 100 03/01/19 13:48 79 24 97 Mechanical Ventilator 40 03/01/19 13:36 78 26 98 Mechanical Ventilator 40 03/01/19 13:30 78 24 147/54 (85) 98 03/01/19 13:30 77 24 40 03/01/19 13:00 98.2 80 24 156/65 (95) 98 03/01/19 13:00 24 Mechanical Ventilator 100 03/01/19 12:36 162/73 03/01/19 12:00 Mechanical Ventilator Mechanical Ventilator 03/01/19 12:00 40 03/01/19 12:00 79 03/01/19 12:00 24 Mechanical Ventilator 100 03/01/19 12:00 79 25 155/69 (97) 95 03/01/19 11:01 84 34 40 03/01/19 11:00 82 26 152/68 (96) 96 03/01/19 11:00 24 Mechanical Ventilator 100 03/01/19 10:00 82 28 163/68 (99) 95 03/01/19 10:00 24 Mechanical Ventilator 100 03/01/19 09:30 85 30 163/64 (97) 94 03/01/19 09:00 93 26 145/71 (95) 93 03/01/19 09:00 24 Mechanical Ventilator 96 03/01/19 08:45 140/60 03/01/19 08:45 24 Mechanical Ventilator 94 03/01/19 08:45 84 140/60 03/01/19 08:45 84 140/60 03/01/19 08:45 97 29 40 03/01/19 08:35 91 34 40 03/01/19 08:35 100 Status: awake - intubated Condition: critical HEENT: atraumatic, normocephalic Neck: full ROM Lungs: clear - x for BiB rales Heart: HR/BP stable Abdomen: soft, non-tender, active bowel sounds Extremities: edema - less, cyanosis - no, clubbing - no Accucheck: 200 Blood Sugars: BS not controlled Critical Care - Subjective ROS Limited/Unobtainable: Yes ICU Day: 24 Intubation Day: 10 Interval Events: -1.7 Cr better no sig secretions plan for trach Hb 7.9 Condition: stable EKG Rhythm: Sinus Rhythm FI02: 40 Vent Support Breath Rate: 24 Vent Support Mode: AC Vent Tidal Volume: 550 Sputum Amount: Scant PEEP: 5.0 PIP: 32 Drips: Fent I&O: Intake and Output 03/01/19 03/02/19 18:59 06:59 Intake Total 887.5 ml 740 ml Output Total 1635 ml 1290 ml Balance -747.5 ml -550 ml Free Water 60 ml 150 ml IV Total 397.5 ml 375 ml Tube Feeding 430 ml 215 ml Output Urine Total 1635 ml 1250 ml Stool Total 40 ml Subjective: CONRAD ET-Tube: 7.5 ET Position: 24 Labs: Laboratory Tests Test 03/02/19 05:01 White Blood Count 3.5 K/UL (4.8-10.8) L Red Blood Count 2.78 M/UL (4.70-6.10) L Hemoglobin 7.9 G/DL (14.2-18.0) L Hematocrit 24.3 % (42.0-52.0) L Mean Corpuscular Volume 87 FL (80-99) Mean Corpuscular Hemoglobin 28.4 PG (27.0-31.0) Mean Corpuscular Hemoglobin Concent 32.5 G/DL (32.0-36.0) Red Cell Distribution Width 16.8 % (11.6-14.8) H Platelet Count 100 K/UL (150-450) L Mean Platelet Volume 5.8 FL (6.5-10.1) L Neutrophils (%) (Auto) % (45.0-75.0) Lymphocytes (%) (Auto) % (20.0-45.0) Monocytes (%) (Auto) % (1.0-10.0) Eosinophils (%) (Auto) % (0.0-3.0) Basophils (%) (Auto) % (0.0-2.0) Neutrophils % (Manual) Pending Lymphocytes % (Manual) Pending Platelet Estimate Pending Platelet Morphology Pending Prothrombin Time 11.7 SEC (9.30-11.50) H Prothromb Time International Ratio 1.1 (0.9-1.1) Activated Partial Thromboplast Time 34 SEC (23-33) H Sodium Level 139 MMOL/L (136-145) Potassium Level 3.1 MMOL/L (3.5-5.1) L Chloride Level 105 MMOL/L (98-107) Carbon Dioxide Level 25 MMOL/L (21-32) Anion Gap 9 mmol/L (5-15) Blood Urea Nitrogen 56 mg/dL (7-18) H Creatinine 2.3 MG/DL (0.55-1.30) H Estimat Glomerular Filtration Rate 29.2 mL/min (>60) Glucose Level 192 MG/DL (74-106) H Calcium Level 8.9 MG/DL (8.5-10.1) Phosphorus Level 2.7 MG/DL (2.5-4.9) Magnesium Level 2.2 MG/DL (1.8-2.4) Brett Meredith MD Mar 02, 2019 08:33
[2019-03-02] MEDS: LORazepam Inj 2mg/ml 1ml IV PRN (08:43)
[2019-03-02] MEDS ORDERED: Sodium Chloride for KCL Premix X 4hrs IV SCH (09:15)
[2019-03-02] MEDS: TENOFOVIR DISOPROXIL FUMARATE 300 MG ORAL SCH (09:38)
[2019-03-02] MEDS: ETRAVIRINE 200 MG ORAL SCH (09:38)
[2019-03-02] MEDS: RALTEGRAVIR 400 MG ORAL SCH ×2 (09:38→17:25)
--- NOTE | 2019-03-02 10:15 | NUR ---
NURSE NOTES: Pt was seen by Dr Mcdonald. informed regarding scheduled trach placement today at noon. No new orders received at this time.
--- NOTE | 2019-03-02 10:30 | NUR ---
NURSE NOTES: Preop checklist done. Received call from OR; per OR nurse, pt will be picked up around 1100. Pt remains on Fentanyl drip at 300mcg/hr RASS score -2 light sedation. VS stable.
[2019-03-02] MEDS ORDERED: fentaNYL 100 mcg/2 mL IV ONE (11:19)
[2019-03-02] MEDS ORDERED: Zemuron 50mg/5ml Inj IV ONE (11:33)
[2019-03-02] MEDS ORDERED: NS Irrig 1000ml ONE (12:00)
[2019-03-02] MEDS ORDERED: Sterile Water Irrig 1000ml IRRIG ONE (12:00)
[2019-03-02] MEDS ORDERED: Propofol 200mg/20ml IV ONE (12:00)
--- NOTE | 2019-03-02 12:05 | NUR ---
NURSE NOTES: Pt was transferred to OR via hospital bed, accompanied by RT, anesthesiologist, and myself, while pt was placed on portable men's golf coach. Fentanyl drip is placed on hold at this time. Report given to TILLER MAN. VS stable. Addendum: 03/02/19 at 1236 by HONEY MARC RN Pt is unable to sign consent. Two physicians will consent/cosign. Addendum: 03/02/19 at 1247 by HONEY MARC RN Consent form has been filled out (pt unable to sign) and given to TILLER MAN.
[2019-03-02] MEDS ORDERED: Lidocaine 1% 10mg/ml/Epi 0.005mg/ml 30ml vial INJ ONE (12:13)
--- NOTE | 2019-03-02 12:16 | Surgery Progress Note ---
Surgery Progress Note Subjective Procedure Performed left femoral temporary Hemodialysis catheter removal Additional Comments patient still unable to wean from ventilatory. patient has failed extubation prior and continues to fail weaning trial. trach indicated and recommended. unable to obtain consent from family. mother with significant dementia discussed with care team and agree that procedure medically necessary given patients case will proceed today Objective Last 24 Hour Vital Signs Date Time Temp Pulse Resp B/P (MAP) Pulse Ox O2 Delivery O2 Flow Rate FiO2 03/02/19 11:00 72 21 147/62 (90) 99 03/02/19 11:00 69 29 40 03/02/19 10:00 71 15 128/54 (78) 98 03/02/19 09:30 71 14 125/49 (74) 97 03/02/19 09:12 78 24 40 03/02/19 09:00 86 21 129/57 (81) 99 03/02/19 08:34 139/54 03/02/19 08:30 99 20 141/96 (111) 94 03/02/19 08:22 84 139/54 03/02/19 08:22 84 139/54 03/02/19 08:00 79 03/02/19 08:00 Mechanical Ventilator Mechanical Ventilator 03/02/19 08:00 98.9 82 23 139/54 (82) 98 03/02/19 08:00 40 03/02/19 07:20 78 24 98 Mechanical Ventilator 40 03/02/19 07:10 81 24 99 Mechanical Ventilator 40 03/02/19 07:00 75 18 128/52 (77) 98 03/02/19 06:56 75 26 40 03/02/19 06:30 77 16 141/56 (84) 98 03/02/19 06:27 143/56 03/02/19 06:27 143/56 03/02/19 06:00 98.5 78 19 143/56 (85) 98 03/02/19 05:30 77 18 148/56 (86) 98 03/02/19 05:00 18 Mechanical Ventilator 03/02/19 05:00 77 19 147/67 (93) 98 03/02/19 04:51 79 25 40 03/02/19 04:30 73 15 133/51 (78) 99 03/02/19 04:09 17 Mechanical Ventilator 03/02/19 04:00 Mechanical Ventilator Mechanical Ventilator 03/02/19 04:00 40 03/02/19 04:00 18 Mechanical Ventilator 03/02/19 04:00 76 03/02/19 04:00 76 15 133/61 (85) 99 03/02/19 03:30 83 18 169/65 (99) 98 03/02/19 03:00 73 11 139/59 (85) 98 03/02/19 03:00 18 Mechanical Ventilator 03/02/19 02:32 73 24 40 03/02/19 02:30 73 11 139/59 (85) 98 03/02/19 02:00 20 Mechanical Ventilator 03/02/19 02:00 76 13 143/65 (91) 98 03/02/19 01:30 85 21 156/70 (98) 96 03/02/19 01:25 76 27 99 Mechanical Ventilator 40 03/02/19 01:14 79 27 99 Mechanical Ventilator 40 03/02/19 01:12 80 25 40 03/02/19 01:00 18 Mechanical Ventilator 03/02/19 01:00 83 18 156/70 (98) 97 03/02/19 00:30 80 12 151/59 (89) 97 03/02/19 00:28 158/64 03/02/19 00:00 Mechanical Ventilator Mechanical Ventilator 03/02/19 00:00 76 03/02/19 00:00 80 15 158/64 (95) 97 03/02/19 00:00 20 Mechanical Ventilator 03/01/19 23:30 81 22 159/59 (92) 98 03/01/19 23:10 81 24 40 03/01/19 23:00 20 Mechanical Ventilator 03/01/19 23:00 80 17 157/71 (99) 97 03/01/19 22:43 154/59 03/01/19 22:30 78 19 154/59 (90) 97 03/01/19 22:00 78 19 158/58 (91) 97 03/01/19 22:00 20 Mechanical Ventilator 03/01/19 21:22 162/72 03/01/19 21:10 81 25 40 03/01/19 21:00 17 Mechanical Ventilator 03/01/19 21:00 91 21 157/58 (91) 94 03/01/19 20:44 92 157/65 03/01/19 20:30 92 21 157/65 (95) 96 03/01/19 20:00 79 03/01/19 20:00 Mechanical Ventilator Mechanical Ventilator 03/01/19 20:00 98.5 89 22 151/61 (91) 97 03/01/19 20:00 17 Mechanical Ventilator 03/01/19 20:00 40 03/01/19 19:17 78 29 98 Mechanical Ventilator 40 03/01/19 19:09 85 28 97 Mechanical Ventilator 40 03/01/19 19:08 86 26 40 03/01/19 19:00 24 Mechanical Ventilator 100 03/01/19 19:00 88 23 144/58 (86) 97 03/01/19 18:30 91 159/65 (96) 95 03/01/19 18:24 157/60 03/01/19 18:00 88 164/64 (97) 97 03/01/19 18:00 24 Mechanical Ventilator 100 03/01/19 17:31 98.3 03/01/19 17:30 86 25 169/85 (113) 95 03/01/19 17:01 24 Mechanical Ventilator 100 03/01/19 17:00 87 26 171/65 (100) 94 03/01/19 16:53 82 29 40 03/01/19 16:00 82 03/01/19 16:00 40 03/01/19 16:00 Mechanical Ventilator Mechanical Ventilator 03/01/19 16:00 98.3 84 26 157/60 (92) 96 03/01/19 16:00 24 Mechanical Ventilator 100 03/01/19 15:00 80 19 144/53 (83) 97 03/01/19 15:00 24 Mechanical Ventilator 100 03/01/19 14:42 82 26 40 03/01/19 14:32 156/56 03/01/19 14:30 82 25 162/42 (82) 94 03/01/19 14:00 78 25 154/56 (88) 96 03/01/19 14:00 24 Mechanical Ventilator 100 03/01/19 13:48 79 24 97 Mechanical Ventilator 40 03/01/19 13:36 78 26 98 Mechanical Ventilator 40 03/01/19 13:30 78 24 147/54 (85) 98 03/01/19 13:30 77 24 40 03/01/19 13:00 98.2 80 24 156/65 (95) 98 03/01/19 13:00 24 Mechanical Ventilator 100 03/01/19 12:36 162/73 I&O Intake and Output 03/01/19 03/02/19 19:00 07:00 Intake Total 1015.5 ml 612 ml Output Total 1825 ml 1200 ml Balance -809.5 ml -588 ml Free Water 120 ml 90 ml IV Total 422.5 ml 350 ml Tube Feeding 473 ml 172 ml Output Urine Total 1785 ml 1200 ml Stool Total 40 ml Laboratory Tests Test 03/02/19 05:01 White Blood Count 3.5 K/UL (4.8-10.8) L Red Blood Count 2.78 M/UL (4.70-6.10) L Hemoglobin 7.9 G/DL (14.2-18.0) L Hematocrit 24.3 % (42.0-52.0) L Mean Corpuscular Volume 87 FL (80-99) Mean Corpuscular Hemoglobin 28.4 PG (27.0-31.0) Mean Corpuscular Hemoglobin Concent 32.5 G/DL (32.0-36.0) Red Cell Distribution Width 16.8 % (11.6-14.8) H Platelet Count 100 K/UL (150-450) L Mean Platelet Volume 5.8 FL (6.5-10.1) L Neutrophils (%) (Auto) % (45.0-75.0) Lymphocytes (%) (Auto) % (20.0-45.0) Monocytes (%) (Auto) % (1.0-10.0) Eosinophils (%) (Auto) % (0.0-3.0) Basophils (%) (Auto) % (0.0-2.0) Differential Total Cells Counted 100 Neutrophils % (Manual) 78 % (45-75) H Lymphocytes % (Manual) 13 % (20-45) L Monocytes % (Manual) 8 % (1-10) Eosinophils % (Manual) 1 % (0-3) Basophils % (Manual) 0 % (0-2) Band Neutrophils 0 % (0-8) Platelet Estimate Decreased L Platelet Morphology Normal Anisocytosis 1+ Prothrombin Time 11.7 SEC (9.30-11.50) H Prothromb Time International Ratio 1.1 (0.9-1.1) Activated Partial Thromboplast Time 34 SEC (23-33) H Sodium Level 139 MMOL/L (136-145) Potassium Level 3.1 MMOL/L (3.5-5.1) L Chloride Level 105 MMOL/L (98-107) Carbon Dioxide Level 25 MMOL/L (21-32) Anion Gap 9 mmol/L (5-15) Blood Urea Nitrogen 56 mg/dL (7-18) H Creatinine 2.3 MG/DL (0.55-1.30) H Estimat Glomerular Filtration Rate 29.2 mL/min (>60) Glucose Level 192 MG/DL (74-106) H Calcium Level 8.9 MG/DL (8.5-10.1) Phosphorus Level 2.7 MG/DL (2.5-4.9) Magnesium Level 2.2 MG/DL (1.8-2.4) Plan Problems: (1) Hypoxia Assessment & Plan: Extensive bilateral upper lobe infiltrates likely inflammatory/infectious. Correlate clinically. Tuberculosis is not excludable. Bilateral pleural effusions. Endotracheal tube and nasogastric tube in good position Atherosclerotic vascular disease (2) Respiratory distress Assessment & Plan: intubated on vent support may require trach given failed initial extubation and now difficult to wean will plan for trach (3) Sepsis Assessment & Plan: Sepsis with tachycardia, leukocytosis - resolved, abnormal labs, respiratory distress on vent support via ET tube Cont IV abx CXR noted appreciate ICU team care abnormal lft's US noted will likely remove line soon now that improving will cont to follow with recs trend labs Rx as written PICC placed HD line removed may need trach Moiz Costa Mar 02, 2019 12:16
[2019-03-02] MEDS ORDERED: Surgicel 4in x 8in TOPIC ONE (12:40)
--- NOTE | 2019-03-02 12:42 | Anethesia Preoperative Eval ---
Anesthesia Pre-op PMH/ROS General Date of Evaluation: Mar 02, 2019 Time of Evaluation: 07:50 Anesthesiologist: Nicola ASA Score: ASA 4 Mallampati Score Class I : Soft palate, uvula, fauces, pillars visible Class II: Soft palate, uvula, fauces visible Class III: Soft palate, base of uvula visible Class IV: Only hard plate visible Mallampati Classification: Class III - Orally intubated Surgeon: Guanakito Diagnosis: Respiratory failure Surgical Procedure: Tracheostomy Anesthesia History: none Family History: no anesthesia problems Allergies: Coded Allergies: No Known Allergies (Unverified , 02/05/13) Patient NPO?: Yes NPO Date: Mar 02, 2019 NPO Time: 0000 Past Medical History Cardiovascular: Reports: HTN, CAD, ME; Denies: valve dz, arrhythmia, other Pulmonary: Reports: other - respiratory failure; Denies: asthma, COPD, RAJNI Gastrointestinal/Genitourinary: Reports: GERD, CRI; Denies: ESRD, other Neurologic/Psychiatric: Reports: dementia, CVA; Denies: depression/anxiety, TIA, other Endocrine: Denies: DM, hypothyroidism, steroids, other Hematology/Immune: Reports: anemia, other - HIV -AIDS; Denies: DVT, bleeding disorder Musculoskeletal/Integumentary: Reports: edema; Denies: OA, RA, DJD, DDD, other Other: obesity PMH Narrative: as above PSxH Narrative: see H&P Anesthesia Pre-op Phys. Exam Physician Exam Last Vital Signs Date Time Temp Pulse Resp B/P (MAP) Pulse Ox O2 Delivery O2 Flow Rate FiO2 03/02/19 12:00 40 03/02/19 12:00 Mechanical Ventilator Mechanical Ventilator 03/02/19 11:00 72 21 147/62 (90) 99 03/02/19 08:00 98.9 02/26/19 12:53 75.0 Constitutional: NAD Neurologic: other - unable to obtaine Cardiovascular: RRR Respiratory: other - bilateral rhales and cracles Gastrointestinal: other - obesity Airway Exam Mallampati Score: Class III MO: limited Neck: short Teeth: missing Dentures: no upper, no lower Anesthesia Pre-op A/P Labs Hematology Test 03/02/19 05:01 White Blood Count 3.5 K/UL (4.8-10.8) L Red Blood Count 2.78 M/UL (4.70-6.10) L Hemoglobin 7.9 G/DL (14.2-18.0) L Hematocrit 24.3 % (42.0-52.0) L Mean Corpuscular Volume 87 FL (80-99) Mean Corpuscular Hemoglobin 28.4 PG (27.0-31.0) Mean Corpuscular Hemoglobin Concent 32.5 G/DL (32.0-36.0) Red Cell Distribution Width 16.8 % (11.6-14.8) H Platelet Count 100 K/UL (150-450) L Mean Platelet Volume 5.8 FL (6.5-10.1) L Neutrophils (%) (Auto) % (45.0-75.0) Lymphocytes (%) (Auto) % (20.0-45.0) Monocytes (%) (Auto) % (1.0-10.0) Eosinophils (%) (Auto) % (0.0-3.0) Basophils (%) (Auto) % (0.0-2.0) Differential Total Cells Counted 100 Neutrophils % (Manual) 78 % (45-75) H Lymphocytes % (Manual) 13 % (20-45) L Monocytes % (Manual) 8 % (1-10) Eosinophils % (Manual) 1 % (0-3) Basophils % (Manual) 0 % (0-2) Band Neutrophils 0 % (0-8) Platelet Estimate Decreased L Platelet Morphology Normal Anisocytosis 1+ Coagulation Test 03/02/19 05:01 Prothrombin Time 11.7 SEC (9.30-11.50) H Prothromb Time International Ratio 1.1 (0.9-1.1) Activated Partial Thromboplast Time 34 SEC (23-33) H Chemistry Test 03/02/19 05:01 Sodium Level 139 MMOL/L (136-145) Potassium Level 3.1 MMOL/L (3.5-5.1) L Chloride Level 105 MMOL/L (98-107) Carbon Dioxide Level 25 MMOL/L (21-32) Anion Gap 9 mmol/L (5-15) Blood Urea Nitrogen 56 mg/dL (7-18) H Creatinine 2.3 MG/DL (0.55-1.30) H Estimat Glomerular Filtration Rate 29.2 mL/min (>60) Glucose Level 192 MG/DL (74-106) H Calcium Level 8.9 MG/DL (8.5-10.1) Phosphorus Level 2.7 MG/DL (2.5-4.9) Magnesium Level 2.2 MG/DL (1.8-2.4) Risk Assessment & Plan Assessment: ASA 4 Plan: GA Status Change Before Surgery: No Pre-Antibiotics Drug: as scheduled Clint Petersen MD Mar 02, 2019 12:42
--- NOTE | 2019-03-02 12:58 | Hematology/Onc Progress Note ---
Assessment/Plan Assessment/Plan ASSESSMENT AND RECOMMENDATIONS # Pancytopenia with all three cell lines have, decreasing counts could also be due to underlying hiv meds --> in addition, he did Have bleeding on admission, HIV is ++ on admission also r/o infection --> Anemia workup has been reviewed. Ferritin 182 --> No evidence of hemolysis is noted, peripheral smear has been reviewed. --> Hgb goal >7. Transfuse prn. --> Epogen or iron at this time is not particularly indicated --> Medications have been reviewed --> Stool OB negative --> Blood tx: 1 unit on 02/10/19, --> off ASA, off heparin, off lovenox --> Hgb trend: 7.6-->8.2-->9.4-->8.4-->8.2 -->8.9-->10.3->7.9-->8.1->7.8-->8.7-- >8.4-->8.1-->7.9 --> WBC 5-->4-->3.2 # Thrombocytopenia - potential causes multifactorial, likely related to HIV status --> Hep panel pending and HIV confirmed positive --> US abd does not show cirrhosis/hsm --> Peripheral smear ordered to evaluate for blasts /schistocytes does not show any --> abx and other meds have been reviewed --> ok for ppx if plt >50k w/ either heparin or lovenox --> Transfuse if Plt < 20k and fever, or if Plt < 10k without fever --> Plt trend: 153-->257-->224-->205-->253-->310-->201->177-->115-->104-->100 --> WILLIAM screen negative # Multilobar pneumonia in patient with HIV. Recs per ID. --> Broad sp atbx started. Continue Zosyn, Vancomycin and Azithromycin --> Droplet precaution # Hypoxemic respiratory failure. Pulm is following, appreciate recs. --> Bipap as needed, transition to O2 via NC when able --> Due to pneumonia, on abx --> now intubated 02/20 --> may need trach if fails breathing trial # Chest pain. 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 --> Trend troponin x3 --> NGT prn # HIV. --> Continue HARRT --> VL is undetectable per patient report. # HTN --> Resume home medication # DVT and GI ppx The time the note is entered does not reflect the time the patient was examined. I greatly appreciate the consultation. Subjective Constitutional: Denies: no symptoms, chills, fever, malaise, weakness, other HEENT: Denies: no symptoms, eye pain, blurred vision, tearing, double vision, ear pain, ear discharge, nose pain, nose congestion, throat pain, throat swelling, mouth pain, mouth swelling, other Respiratory: Denies: no symptoms, cough, shortness of breath, SOB with excertion, SOB at rest, sputum, wheezing, other Gastrointestinal/Abdominal: Denies: no symptoms, abdomen distended, abdominal pain, black stools, tarry stools, blood in stool, constipated, diarrhea, difficulty swallowing, nausea, poor appetite, poor fluid intake, rectal bleeding , vomiting, other Genitourinary: Denies: no symptoms, burning, discharge, frequency, flank pain, hematuria, incontinence, pain, urgency, other Neurologic/Psychiatric: Denies: no symptoms, anxiety, depressed, emotional problems, headache, numbness, paresthesia, pre-existing deficit, seizure, tingling, tremors, weakness, other Endocrine: Denies: no symptoms, excessive sweating, flushing, intolerance to cold, intolerance to heat, increased hunger, increased thirst, increased urine, unexplained weight gain, unexplained weight loss, other Hematologic/Lymphatic: Denies: no symptoms, anemia, easy bleeding, easy bruising, adenopathy, other Allergies: Coded Allergies: No Known Allergies (Unverified , 02/05/13) Subjective Subjective 02/11: Hgb yesterday was 7.6, s/p 1 unit prbc. Current hgb at 8.2. Pt attempted to pull out tubes per nursing team, soft restraints applied. 02/13: Pt in ICU and intubated. Pt currently sedated. Current hgb 9.4. 02/14: Pt remains in icu, sedated. Hgb stable. 02/15: Remains in icu, lethargic. No acute events. Hgb stable. 02/16: Remains in icu. CXR today shows worsening CHF/pulmonary edema. Pt wake and sedation decrease for weaning. 02/18: Remains in icu. Pt on vent. CXR today shows pulmonary edema, persistent small left pleural effusion. 02/19: Remains in the icu, now extubated, seen by pulm, labs reviewed 02/20: Remains in ICU, Pt intubated, CXR today shows Congestive heart failure with interval worsening 02/21: reintubated, tolerating vent well, seen by pulm/cc 02/23: pt remains on fently gtt, prn ativan, currenlty intubated on vent, no further bleeding, d/w RN> 02/24:failed weaning, fentanyl drip decreased. 02/25:pt seen in am,sedated. 02/27: remains intubated, may need trach, nobleeding today 02/28: tolerated cpap, now back on vent, no bleeding off asa/lovenox 03/01: fentanyl gtt is now off, remains in icu, dw rn 03/02: to get trach today, at approx 12, no events, labs somewhat lower Objective Objective Current Medications Medications (Trade) Dose Ordered Sig/Marquis Route PRN Reason Start Time Stop Time Status Last Admin Dose Admin Acetaminophen (Tylenol) 650 mg Q4H PRN ORAL Mild Pain (Pain Scale 1-3) 02/07/19 11:15 03/08/19 17:29 02/22/19 14:37 Acetaminophen/ Butalbital/ Caffeine (Fioricet) 1 tab Q8H PRN ORAL For Headache 02/08/19 17:15 03/10/19 17:14 Albuterol/ Ipratropium (Albuterol/ Ipratropium) 3 ml Q4H PRN HHN Shortness of Breath 02/26/19 12:30 03/03/19 12:29 Albuterol/ Ipratropium (Albuterol/ Ipratropium) 3 ml Q6HRT HHN 02/26/19 13:00 03/03/19 12:59 03/02/19 07:10 Amlodipine Besylate (Norvasc) 10 mg DAILY NG 02/15/19 09:00 03/14/19 15:59 03/02/19 08:22 Artificial Tears (Lacri-Lube) 1 applic AC+HS BOTH EYES 02/18/19 06:30 03/20/19 06:29 03/02/19 11:47 Bisacodyl (Dulcolax) 5 mg DAILYPRN PRN ORAL Constipation 02/08/19 17:15 03/10/19 17:14 02/25/19 12:45 Cefepime HCl 2 gm/ Dextrose 110 ml @ 220 mls/hr Q24H IV 03/02/19 16:00 03/09/19 15:59 Chlorhexidine Gluconate (Jessy-Hex 2%) 1 applic DAILY@2000 TOPIC 02/25/19 20:00 03/27/19 19:59 03/01/19 20:44 Clindamycin HCl/ Dextrose 50 ml @ 100 mls/hr Q8HR IV 02/27/19 22:00 03/06/19 21:59 03/02/19 06:26 Clonidine HCl (Catapres Tab) 0.1 mg EVERY 12 HOURS NG 02/25/19 21:00 03/19/19 13:59 03/02/19 08:34 Dextrose (Dextrose 50%) 25 ml Q30M PRN IV Hypoglycemia 03/01/19 07:15 03/31/19 07:14 Dextrose (Dextrose 50%) 50 ml Q30M PRN IV Hypoglycemia 03/01/19 07:15 03/31/19 07:14 Docusate Sodium (Colace) 100 mg TID GT 02/12/19 18:00 03/12/19 08:59 03/02/19 08:25 Fentanyl Citrate 2500 mcg/Sodium Chloride 250 ml @ 0 mls/hr Q24H IV 02/23/19 20:30 03/02/19 20:29 03/02/19 04:09 Fluconazole/ Sodium Chloride 100 ml @ 100 mls/hr Q24H IV 02/26/19 18:00 03/05/19 17:59 03/01/19 18:40 Furosemide (Lasix) 40 mg DAILY IV 03/01/19 09:00 03/31/19 08:59 03/02/19 08:26 Guaifenesin (Mucinex ER) 600 mg TWICE A DAY ORAL 02/07/19 18:00 03/09/19 08:59 03/02/19 08:23 Heparin Sodium (Porcine) (Heparin 5000 units/ml) 5,000 units EVERY 12 HOURS SUBQ 02/26/19 21:00 03/28/19 20:59 02/28/19 21:05 Hydralazine HCl (Apresoline) 10 mg Q4H PRN IV bp over 165 syst 02/17/19 10:15 03/19/19 10:14 02/19/19 14:45 Hydralazine HCl (Apresoline) 50 mg Q8HR NG 02/22/19 14:00 03/21/19 21:59 03/02/19 06:27 Insulin Aspart (NovoLOG) EVERY 6 HOURS SUBQ 02/26/19 12:00 03/28/19 11:59 03/02/19 11:51 Insulin Detemir (Levemir) 6 units DAILY SUBQ 03/01/19 09:00 03/31/19 08:59 03/02/19 08:32 Isosorbide Dinitrate (Isordil) 20 mg Q6HR NG 02/22/19 12:00 03/15/19 12:59 03/02/19 06:27 Lorazepam (Ativan 2mg/ml 1ml) 2 mg Q2H PRN IV For Anxiety 02/27/19 13:48 03/06/19 13:47 03/02/19 08:43 Metoclopramide HCl (Reglan) 5 mg Q8H IVP 02/26/19 09:00 03/28/19 08:59 03/02/19 08:26 Metolazone (Zaroxolyn) 10 mg DAILY NG 02/19/19 10:00 03/21/19 09:59 03/02/19 08:23 Metoprolol Tartrate (Lopressor) 100 mg Q12HR ORAL 02/22/19 21:00 03/08/19 20:59 03/02/19 08:22 Midazolam HCl (Versed 2mg/2ml vial) 1 mg Q2H PRN IVP Agitation 02/13/19 08:45 03/15/19 08:44 02/27/19 11:05 Neomycin/ Polymyxin/ Dexamethasone (Maxitrol Opth Oint) 1 applic BEDTIME BOTH EYES 02/18/19 21:00 03/20/19 20:59 03/01/19 20:46 Nitroglycerin (Ntg) 0.4 mg Q5M PRN SL Prn Chest Pain 02/07/19 11:00 03/08/19 17:29 02/08/19 07:42 Ondansetron HCl (Zofran) 4 mg Q6H PRN IVP Nausea & Vomiting 02/07/19 11:15 03/08/19 11:14 02/09/19 00:58 Pantoprazole (Protonix) 40 mg DAILY IVP 02/26/19 09:00 03/24/19 20:59 03/02/19 08:25 Patient Own Medication (Patient's Own Med) 1 ea BID ORAL 02/07/19 18:00 03/09/19 17:59 03/02/19 09:38 Patient Own Medication (Patient's Own Med) 1 ea Q48H ORAL 02/18/19 09:00 03/20/19 08:59 03/02/19 09:38 Patient Own Medication (Patient's Own Med) 2 ea DAILY ORAL 02/08/19 09:00 03/10/19 08:59 03/02/19 09:38 Polyethylene Glycol (Miralax) 17 gm BEDTIME ORAL 02/08/19 21:00 03/10/19 20:59 03/01/19 20:44 Potassium Chloride 100 ml @ 50 mls/hr Q2H IVPB 03/02/19 09:15 03/02/19 13:14 03/02/19 11:46 Primaquine Phosphate (Primaquine) 26.3 mg DAILY ORAL 02/28/19 09:00 03/30/19 08:59 03/02/19 08:23 Sennosides (Senokot) 8.6 mg DAILY ORAL 02/13/19 12:00 03/15/19 11:59 03/02/19 08:23 Last 24 Hour Vital Signs Date Time Temp Pulse Resp B/P (MAP) Pulse Ox O2 Delivery O2 Flow Rate FiO2 03/02/19 12:00 40 03/02/19 12:00 Mechanical Ventilator Mechanical Ventilator 03/02/19 11:00 72 21 147/62 (90) 99 03/02/19 11:00 69 29 40 03/02/19 10:00 71 15 128/54 (78) 98 03/02/19 09:30 71 14 125/49 (74) 97 03/02/19 09:12 78 24 40 03/02/19 09:00 86 21 129/57 (81) 99 03/02/19 08:34 139/54 03/02/19 08:30 99 20 141/96 (111) 94 03/02/19 08:22 84 139/54 03/02/19 08:22 84 139/54 03/02/19 08:00 79 03/02/19 08:00 Mechanical Ventilator Mechanical Ventilator 03/02/19 08:00 98.9 82 23 139/54 (82) 98 03/02/19 08:00 40 03/02/19 07:20 78 24 98 Mechanical Ventilator 40 03/02/19 07:10 81 24 99 Mechanical Ventilator 40 03/02/19 07:00 75 18 128/52 (77) 98 03/02/19 06:56 75 26 40 03/02/19 06:30 77 16 141/56 (84) 98 03/02/19 06:27 143/56 03/02/19 06:27 143/56 03/02/19 06:00 98.5 78 19 143/56 (85) 98 03/02/19 05:30 77 18 148/56 (86) 98 03/02/19 05:00 18 Mechanical Ventilator 03/02/19 05:00 77 19 147/67 (93) 98 03/02/19 04:51 79 25 40 03/02/19 04:30 73 15 133/51 (78) 99 03/02/19 04:09 17 Mechanical Ventilator 03/02/19 04:00 Mechanical Ventilator Mechanical Ventilator 03/02/19 04:00 40 03/02/19 04:00 18 Mechanical Ventilator 03/02/19 04:00 76 03/02/19 04:00 76 15 133/61 (85) 99 03/02/19 03:30 83 18 169/65 (99) 98 03/02/19 03:00 73 11 139/59 (85) 98 03/02/19 03:00 18 Mechanical Ventilator 03/02/19 02:32 73 24 40 03/02/19 02:30 73 11 139/59 (85) 98 03/02/19 02:00 20 Mechanical Ventilator 03/02/19 02:00 76 13 143/65 (91) 98 03/02/19 01:30 85 21 156/70 (98) 96 03/02/19 01:25 76 27 99 Mechanical Ventilator 40 03/02/19 01:14 79 27 99 Mechanical Ventilator 40 03/02/19 01:12 80 25 40 03/02/19 01:00 18 Mechanical Ventilator 03/02/19 01:00 83 18 156/70 (98) 97 03/02/19 00:30 80 12 151/59 (89) 97 03/02/19 00:28 158/64 03/02/19 00:00 Mechanical Ventilator Mechanical Ventilator 03/02/19 00:00 76 03/02/19 00:00 80 15 158/64 (95) 97 03/02/19 00:00 20 Mechanical Ventilator 03/01/19 23:30 81 22 159/59 (92) 98 03/01/19 23:10 81 24 40 03/01/19 23:00 20 Mechanical Ventilator 03/01/19 23:00 80 17 157/71 (99) 97 03/01/19 22:43 154/59 03/01/19 22:30 78 19 154/59 (90) 97 03/01/19 22:00 78 19 158/58 (91) 97 03/01/19 22:00 20 Mechanical Ventilator 03/01/19 21:22 162/72 03/01/19 21:10 81 25 40 03/01/19 21:00 17 Mechanical Ventilator 03/01/19 21:00 91 21 157/58 (91) 94 03/01/19 20:44 92 157/65 03/01/19 20:30 92 21 157/65 (95) 96 03/01/19 20:00 79 03/01/19 20:00 Mechanical Ventilator Mechanical Ventilator 03/01/19 20:00 98.5 89 22 151/61 (91) 97 03/01/19 20:00 17 Mechanical Ventilator 03/01/19 20:00 40 03/01/19 19:17 78 29 98 Mechanical Ventilator 40 03/01/19 19:09 85 28 97 Mechanical Ventilator 40 03/01/19 19:08 86 26 40 03/01/19 19:00 24 Mechanical Ventilator 100 03/01/19 19:00 88 23 144/58 (86) 97 03/01/19 18:30 91 159/65 (96) 95 03/01/19 18:24 157/60 03/01/19 18:00 88 164/64 (97) 97 03/01/19 18:00 24 Mechanical Ventilator 100 03/01/19 17:31 98.3 03/01/19 17:30 86 25 169/85 (113) 95 03/01/19 17:01 24 Mechanical Ventilator 100 03/01/19 17:00 87 26 171/65 (100) 94 03/01/19 16:53 82 29 40 03/01/19 16:00 82 03/01/19 16:00 40 03/01/19 16:00 Mechanical Ventilator Mechanical Ventilator 03/01/19 16:00 98.3 84 26 157/60 (92) 96 03/01/19 16:00 24 Mechanical Ventilator 100 03/01/19 15:00 80 19 144/53 (83) 97 03/01/19 15:00 24 Mechanical Ventilator 100 03/01/19 14:42 82 26 40 03/01/19 14:32 156/56 03/01/19 14:30 82 25 162/42 (82) 94 03/01/19 14:00 78 25 154/56 (88) 96 03/01/19 14:00 24 Mechanical Ventilator 100 03/01/19 13:48 79 24 97 Mechanical Ventilator 40 03/01/19 13:36 78 26 98 Mechanical Ventilator 40 03/01/19 13:30 78 24 147/54 (85) 98 03/01/19 13:30 77 24 40 03/01/19 13:00 98.2 80 24 156/65 (95) 98 03/01/19 13:00 24 Mechanical Ventilator 100 03/01/19 12:36 162/73 03/01/19 12:00 Mechanical Ventilator Mechanical Ventilator 03/01/19 12:00 40 03/01/19 12:00 79 03/01/19 12:00 24 Mechanical Ventilator 100 03/01/19 12:00 79 25 155/69 (97) 95 03/01/19 11:01 84 34 40 03/01/19 11:00 82 26 152/68 (96) 96 03/01/19 11:00 24 Mechanical Ventilator 100 03/01/19 10:00 82 28 163/68 (99) 95 03/01/19 10:00 24 Mechanical Ventilator 100 03/01/19 09:30 85 30 163/64 (97) 94 03/01/19 09:00 93 26 145/71 (95) 93 03/01/19 09:00 24 Mechanical Ventilator 96 03/01/19 08:45 140/60 03/01/19 08:45 24 Mechanical Ventilator 94 03/01/19 08:45 84 140/60 03/01/19 08:45 84 140/60 03/01/19 08:45 97 29 40 03/01/19 08:35 91 34 40 03/01/19 08:35 100 03/01/19 08:30 91 25 138/88 (105) 95 03/01/19 08:00 89 03/01/19 08:00 40 03/01/19 08:00 Mechanical Ventilator Mechanical Ventilator 03/01/19 08:00 98.2 93 29 160/67 (98) 96 03/01/19 07:01 84 30 140/60 (86) 95 03/01/19 06:51 86 31 100 Mechanical Ventilator 40 03/01/19 06:43 86 34 94 Mechanical Ventilator 40 03/01/19 06:42 84 30 40 03/01/19 06:30 84 26 154/66 (95) 95 03/01/19 06:00 84 21 141/87 (105) 97 03/01/19 06:00 23 Mechanical Ventilator 40 03/01/19 05:38 150/67 03/01/19 05:37 150/67 03/01/19 05:30 84 23 150/67 (94) 97 03/01/19 05:00 26 Mechanical Ventilator 40 03/01/19 05:00 26 Mechanical Ventilator 40 03/01/19 05:00 83 25 143/60 (87) 96 03/01/19 04:57 84 25 40 03/01/19 04:30 84 22 140/54 (82) 97 03/01/19 04:00 24 Mechanical Ventilator 40 03/01/19 04:00 24 Mechanical Ventilator 40 03/01/19 04:00 Mechanical Ventilator 03/01/19 04:00 98.7 84 19 142/62 (88) 96 03/01/19 03:30 82 25 151/61 (91) 97 03/01/19 03:01 88 29 40 03/01/19 03:00 86 28 143/118 (126) 100 03/01/19 03:00 27 Mechanical Ventilator 40 03/01/19 02:30 83 17 146/117 (127) 92 03/01/19 02:00 83 22 137/68 (91) 95 03/01/19 02:00 24 Mechanical Ventilator 40 03/01/19 01:32 24 Mechanical Ventilator 40 03/01/19 01:30 82 25 145/59 (87) 97 03/01/19 01:21 82 30 100 Mechanical Ventilator 40 03/01/19 01:11 81 31 98 Mechanical Ventilator 40 03/01/19 01:10 83 31 40 03/01/19 01:00 82 146/55 (85) 96 03/01/19 01:00 24 Mechanical Ventilator 40 03/01/19 00:30 81 24 143/70 (94) 99 03/01/19 00:09 40 03/01/19 00:08 85 03/01/19 00:05 Mechanical Ventilator 03/01/19 00:00 98.4 78 24 150/61 (90) 94 03/01/19 00:00 24 Mechanical Ventilator 40 02/28/19 23:47 154/59 02/28/19 23:30 79 24 154/59 (90) 95 02/28/19 23:01 81 27 40 02/28/19 23:00 23 Mechanical Ventilator 40 02/28/19 23:00 78 25 151/59 (89) 100 02/28/19 22:30 78 23 143/56 (85) 93 02/28/19 22:00 25 Mechanical Ventilator 40 02/28/19 22:00 78 26 141/63 (89) 98 02/28/19 21:51 151/43 02/28/19 21:30 78 24 151/43 (79) 100 02/28/19 21:12 83 30 40 02/28/19 21:03 152/60 02/28/19 21:03 82 152/60 02/28/19 21:00 83 25 145/62 (89) 99 02/28/19 21:00 23 Mechanical Ventilator 40 02/28/19 20:30 80 22 152/60 (90) 100 02/28/19 20:00 82 02/28/19 20:00 Mechanical Ventilator 02/28/19 20:00 40 02/28/19 20:00 82 16 159/81 (107) 99 02/28/19 20:00 23 Mechanical Ventilator 40 02/28/19 19:45 80 22 153/60 (91) 98 02/28/19 19:35 79 24 100 Mechanical Ventilator 40 02/28/19 19:30 97.9 79 23 147/61 (89) 100 02/28/19 19:25 79 26 40 02/28/19 19:25 79 26 100 Mechanical Ventilator 40 02/28/19 19:15 78 19 153/63 (93) 97 02/28/19 19:00 79 20 153/58 (89) 100 02/28/19 19:00 26 Mechanical Ventilator 40 02/28/19 18:45 76 15 147/59 (88) 98 02/28/19 18:30 75 22 142/59 (86) 98 02/28/19 18:15 74 21 145/59 (87) 98 02/28/19 18:04 147/52 02/28/19 18:00 97.6 78 23 164/63 (96) 99 02/28/19 18:00 27 Mechanical Ventilator 40 02/28/19 17:30 74 21 156/59 (91) 98 02/28/19 17:03 72 29 40 02/28/19 17:00 20 Mechanical Ventilator 40 02/28/19 17:00 72 21 151/64 (93) 98 02/28/19 16:45 72 21 149/62 (91) 99 02/28/19 16:30 72 29 149/62 (91) 98 02/28/19 16:15 71 20 147/67 (93) 98 02/28/19 16:08 20 Mechanical Ventilator 40 02/28/19 16:00 97.5 70 21 147/67 (93) 98 02/28/19 16:00 Mechanical Ventilator 02/28/19 15:43 69 02/28/19 15:00 70 23 138/58 (84) 98 02/28/19 15:00 40 02/28/19 14:51 71 26 40 02/28/19 14:19 138/63 02/28/19 14:00 72 24 138/63 (88) 97 02/28/19 13:00 72 18 146/63 (90) 97 02/28/19 13:00 73 23 137/66 (89) 97 Intake and Output 03/01/19 03/02/19 19:00 07:00 Intake Total 1015.5 ml 612 ml Output Total 1825 ml 1200 ml Balance -809.5 ml -588 ml Free Water 120 ml 90 ml IV Total 422.5 ml 350 ml Tube Feeding 473 ml 172 ml Output Urine Total 1785 ml 1200 ml Stool Total 40 ml Labs Test 02/28/19 04:30 03/01/19 05:26 03/02/19 05:01 White Blood Count 5.0 K/UL (4.8-10.8) 4.2 K/UL (4.8-10.8) 3.5 K/UL (4.8-10.8) Red Blood Count 2.91 M/UL (4.70-6.10) 2.82 M/UL (4.70-6.10) 2.78 M/UL (4.70-6.10) Hemoglobin 8.4 G/DL (14.2-18.0) 8.1 G/DL (14.2-18.0) 7.9 G/DL (14.2-18.0) Hematocrit 25.8 % (42.0-52.0) 24.8 % (42.0-52.0) 24.3 % (42.0-52.0) Mean Corpuscular Volume 89 FL (80-99) 88 FL (80-99) 87 FL (80-99) Mean Corpuscular Hemoglobin 28.8 PG (27.0-31.0) 28.6 PG (27.0-31.0) 28.4 PG (27.0-31.0) Mean Corpuscular Hemoglobin Concent 32.5 G/DL (32.0-36.0) 32.6 G/DL (32.0-36.0) 32.5 G/DL (32.0-36.0) Red Cell Distribution Width 17.1 % (11.6-14.8) 16.8 % (11.6-14.8) 16.8 % (11.6-14.8) Platelet Count 115 K/UL (150-450) 104 K/UL (150-450) 100 K/UL (150-450) Mean Platelet Volume 6.2 FL (6.5-10.1) 6.1 FL (6.5-10.1) 5.8 FL (6.5-10.1) Neutrophils (%) (Auto) 84.6 % (45.0-75.0) % (45.0-75.0) % (45.0-75.0) Lymphocytes (%) (Auto) 6.1 % (20.0-45.0) % (20.0-45.0) % (20.0-45.0) Monocytes (%) (Auto) 8.2 % (1.0-10.0) % (1.0-10.0) % (1.0-10.0) Eosinophils (%) (Auto) 0.8 % (0.0-3.0) % (0.0-3.0) % (0.0-3.0) Basophils (%) (Auto) 0.3 % (0.0-2.0) % (0.0-2.0) % (0.0-2.0) Sodium Level 132 MMOL/L (136-145) 136 MMOL/L (136-145) 139 MMOL/L (136-145) Potassium Level 4.1 MMOL/L (3.5-5.1) 3.5 MMOL/L (3.5-5.1) 3.1 MMOL/L (3.5-5.1) Chloride Level 99 MMOL/L (98-107) 102 MMOL/L (98-107) 105 MMOL/L (98-107) Carbon Dioxide Level 21 MMOL/L (21-32) 22 MMOL/L (21-32) 25 MMOL/L (21-32) Anion Gap 12 mmol/L (5-15) 12 mmol/L (5-15) 9 mmol/L (5-15) Blood Urea Nitrogen 74 mg/dL (7-18) 66 mg/dL (7-18) 56 mg/dL (7-18) Creatinine 3.2 MG/DL (0.55-1.30) 2.6 MG/DL (0.55-1.30) 2.3 MG/DL (0.55-1.30) Estimat Glomerular Filtration Rate 20.0 mL/min (>60) 25.4 mL/min (>60) 29.2 mL/min (>60) Glucose Level 167 MG/DL (74-106) 215 MG/DL (74-106) 192 MG/DL (74-106) Calcium Level 8.3 MG/DL (8.5-10.1) 8.7 MG/DL (8.5-10.1) 8.9 MG/DL (8.5-10.1) Total Bilirubin 0.4 MG/DL (0.2-1.0) 0.4 MG/DL (0.2-1.0) Aspartate Amino Transf (AST/SGOT) 67 U/L (15-37) 59 U/L (15-37) Alanine Aminotransferase (ALT/SGPT) 51 U/L (12-78) 51 U/L (12-78) Alkaline Phosphatase 130 U/L (46-116) 129 U/L (46-116) Total Protein 5.5 G/DL (6.4-8.2) 5.5 G/DL (6.4-8.2) Albumin 2.5 G/DL (3.4-5.0) 2.4 G/DL (3.4-5.0) Globulin 3.0 g/dL 3.1 g/dL Albumin/Globulin Ratio 0.8 (1.0-2.7) 0.8 (1.0-2.7) Differential Total Cells Counted 100 100 Neutrophils % (Manual) 86 % (45-75) 78 % (45-75) Lymphocytes % (Manual) 7 % (20-45) 13 % (20-45) Monocytes % (Manual) 6 % (1-10) 8 % (1-10) Eosinophils % (Manual) 1 % (0-3) 1 % (0-3) Basophils % (Manual) 0 % (0-2) 0 % (0-2) Band Neutrophils 0 % (0-8) 0 % (0-8) Platelet Estimate Decreased Decreased Platelet Morphology Normal Normal Hypochromasia 2+ Anisocytosis 1+ 1+ Spherocytes 1+ Uric Acid 5.2 MG/DL (2.6-7.2) Phosphorus Level 3.3 MG/DL (2.5-4.9) 2.7 MG/DL (2.5-4.9) Magnesium Level 2.3 MG/DL (1.8-2.4) 2.2 MG/DL (1.8-2.4) Gamma Glutamyl Transpeptidase 165 U/L (5-85) C-Reactive Protein, Quantitative 8.3 mg/dL (0.00-0.90) Pro-B-Type Natriuretic Peptide 43307 pg/mL (0-125) Prothrombin Time 11.7 SEC (9.30-11.50) Prothromb Time International Ratio 1.1 (0.9-1.1) Activated Partial Thromboplast Time 34 SEC (23-33) Height (Feet): 6 Height (Inches): 0.00 Weight (Pounds): 199 Objective PHYSICAL EXAMINATION: GENERAL: NAD VITAL SIGNS: Have been reviewed. HEAD AND NECK: Shows no JVD. NG+ vent+ LUNGS: Coarse rhonchi. CARDIOVASCULAR: Shows regular S1 and S2 with no gallop or murmur. ABDOMEN: Soft. EXTREMITIES: No pitting edema. Chan Hernandez MD Mar 02, 2019 12:58
--- NOTE | 2019-03-02 13:05 | Immediate Post-Op Evaluation ---
Immediate Post-Op Evalulation Immediate Post-Op Evalulation Procedure: Tracheostomy Date of Evaluation: Mar 02, 2019 Time of Evaluation: 13:04 IV Fluids: 200 Blood Products: none Estimated Blood Loss: min Urinary Output: none Blood Pressure Systolic: 116 Blood Pressure Diastolic: 58 Pulse Rate: 72 Respiratory Rate: 18 O2 Sat by Pulse Oximetry: 99 Temperature (Fahrenheit): 97.6 Pain Score (1-10): 1 Nausea: No Vomiting: No Complications none Patient Status: no response, ventilated, none Hydration Status: adequate Clint Petersen MD Mar 02, 2019 13:05
--- NOTE | 2019-03-02 13:25 | General Progress Note ---
Assessment/Plan Problem List: (1) ISH (acute kidney injury) ICD Codes: N17.9 - Acute kidney failure, unspecified SNOMED: 57609961 (2) Uncontrolled type 2 diabetes mellitus with chronic kidney disease ICD Codes: E11.22 - Type 2 diabetes mellitus with diabetic chronic kidney disease; E11.65 - Type 2 diabetes mellitus with hyperglycemia SNOMED: 02444481, 270495375, 688108934 (3) HIV disease ICD Codes: B20 - Human immunodeficiency virus [HIV] disease SNOMED: 00210649 (4) Respiratory distress ICD Codes: R06.03 - Acute respiratory distress SNOMED: 171729929 Status: stable Assessment/Plan: - continue Novolog sliding scale every 6 hours - increase Levemir to 6 units bid Subjective ROS Limited/Unobtainable: Yes Allergies: Coded Allergies: No Known Allergies (Unverified , 02/05/13) Subjective events noted Item Value Date Time Bedside Blood Glucose 166 mg/dl H 03/02/19 1200 Bedside Blood Glucose 200 mg/dl H 03/02/19 0832 Bedside Blood Glucose 200 mg/dl H 03/02/19 0630 Bedside Blood Glucose 249 mg/dl H 03/02/19 0029 Bedside Blood Glucose 241 mg/dl H 03/01/19 1828 Bedside Blood Glucose 225 mg/dl H 03/01/19 1238 Bedside Blood Glucose 197 mg/dl H 03/01/19 1008 Objective Last 24 Hour Vital Signs Date Time Temp Pulse Resp B/P (MAP) Pulse Ox O2 Delivery O2 Flow Rate FiO2 03/02/19 13:05 72 18 99 03/02/19 12:00 40 03/02/19 12:00 Mechanical Ventilator Mechanical Ventilator 03/02/19 11:00 72 21 147/62 (90) 99 03/02/19 11:00 69 29 40 03/02/19 10:00 71 15 128/54 (78) 98 03/02/19 09:30 71 14 125/49 (74) 97 03/02/19 09:12 78 24 40 03/02/19 09:00 86 21 129/57 (81) 99 03/02/19 08:34 139/54 03/02/19 08:30 99 20 141/96 (111) 94 03/02/19 08:22 84 139/54 03/02/19 08:22 84 139/54 03/02/19 08:00 79 03/02/19 08:00 Mechanical Ventilator Mechanical Ventilator 03/02/19 08:00 98.9 82 23 139/54 (82) 98 03/02/19 08:00 40 03/02/19 07:20 78 24 98 Mechanical Ventilator 40 03/02/19 07:10 81 24 99 Mechanical Ventilator 40 03/02/19 07:00 75 18 128/52 (77) 98 03/02/19 06:56 75 26 40 03/02/19 06:30 77 16 141/56 (84) 98 03/02/19 06:27 143/56 03/02/19 06:27 143/56 03/02/19 06:00 98.5 78 19 143/56 (85) 98 03/02/19 05:30 77 18 148/56 (86) 98 03/02/19 05:00 18 Mechanical Ventilator 03/02/19 05:00 77 19 147/67 (93) 98 03/02/19 04:51 79 25 40 03/02/19 04:30 73 15 133/51 (78) 99 03/02/19 04:09 17 Mechanical Ventilator 03/02/19 04:00 Mechanical Ventilator Mechanical Ventilator 03/02/19 04:00 40 03/02/19 04:00 18 Mechanical Ventilator 03/02/19 04:00 76 03/02/19 04:00 76 15 133/61 (85) 99 03/02/19 03:30 83 18 169/65 (99) 98 03/02/19 03:00 73 11 139/59 (85) 98 03/02/19 03:00 18 Mechanical Ventilator 03/02/19 02:32 73 24 40 03/02/19 02:30 73 11 139/59 (85) 98 03/02/19 02:00 20 Mechanical Ventilator 03/02/19 02:00 76 13 143/65 (91) 98 03/02/19 01:30 85 21 156/70 (98) 96 03/02/19 01:25 76 27 99 Mechanical Ventilator 40 03/02/19 01:14 79 27 99 Mechanical Ventilator 40 03/02/19 01:12 80 25 40 03/02/19 01:00 18 Mechanical Ventilator 03/02/19 01:00 83 18 156/70 (98) 97 03/02/19 00:30 80 12 151/59 (89) 97 03/02/19 00:28 158/64 03/02/19 00:00 Mechanical Ventilator Mechanical Ventilator 03/02/19 00:00 76 03/02/19 00:00 80 15 158/64 (95) 97 03/02/19 00:00 20 Mechanical Ventilator 03/01/19 23:30 81 22 159/59 (92) 98 03/01/19 23:10 81 24 40 03/01/19 23:00 20 Mechanical Ventilator 03/01/19 23:00 80 17 157/71 (99) 97 03/01/19 22:43 154/59 03/01/19 22:30 78 19 154/59 (90) 97 03/01/19 22:00 78 19 158/58 (91) 97 03/01/19 22:00 20 Mechanical Ventilator 03/01/19 21:22 162/72 03/01/19 21:10 81 25 40 03/01/19 21:00 17 Mechanical Ventilator 03/01/19 21:00 91 21 157/58 (91) 94 03/01/19 20:44 92 157/65 03/01/19 20:30 92 21 157/65 (95) 96 03/01/19 20:00 79 03/01/19 20:00 Mechanical Ventilator Mechanical Ventilator 03/01/19 20:00 98.5 89 22 151/61 (91) 97 03/01/19 20:00 17 Mechanical Ventilator 03/01/19 20:00 40 03/01/19 19:17 78 29 98 Mechanical Ventilator 40 03/01/19 19:09 85 28 97 Mechanical Ventilator 40 03/01/19 19:08 86 26 40 03/01/19 19:00 24 Mechanical Ventilator 100 03/01/19 19:00 88 23 144/58 (86) 97 03/01/19 18:30 91 159/65 (96) 95 03/01/19 18:24 157/60 03/01/19 18:00 88 164/64 (97) 97 03/01/19 18:00 24 Mechanical Ventilator 100 03/01/19 17:31 98.3 03/01/19 17:30 86 25 169/85 (113) 95 03/01/19 17:01 24 Mechanical Ventilator 100 03/01/19 17:00 87 26 171/65 (100) 94 03/01/19 16:53 82 29 40 03/01/19 16:00 82 03/01/19 16:00 40 03/01/19 16:00 Mechanical Ventilator Mechanical Ventilator 03/01/19 16:00 98.3 84 26 157/60 (92) 96 03/01/19 16:00 24 Mechanical Ventilator 100 03/01/19 15:00 80 19 144/53 (83) 97 03/01/19 15:00 24 Mechanical Ventilator 100 03/01/19 14:42 82 26 40 03/01/19 14:32 156/56 03/01/19 14:30 82 25 162/42 (82) 94 03/01/19 14:00 78 25 154/56 (88) 96 03/01/19 14:00 24 Mechanical Ventilator 100 03/01/19 13:48 79 24 97 Mechanical Ventilator 40 03/01/19 13:36 78 26 98 Mechanical Ventilator 40 03/01/19 13:30 78 24 147/54 (85) 98 03/01/19 13:30 77 24 40 Intake and Output 03/01/19 03/02/19 19:00 07:00 Intake Total 1015.5 ml 612 ml Output Total 1825 ml 1200 ml Balance -809.5 ml -588 ml Free Water 120 ml 90 ml IV Total 422.5 ml 350 ml Tube Feeding 473 ml 172 ml Output Urine Total 1785 ml 1200 ml Stool Total 40 ml Laboratory Tests 03/02/19 05:01: White Blood Count 3.5L, Red Blood Count 2.78L, Hemoglobin 7.9L, Hematocrit 24.3L , Mean Corpuscular Volume 87, Mean Corpuscular Hemoglobin 28.4, Mean Corpuscular Hemoglobin Concent 32.5, Red Cell Distribution Width 16.8H, Platelet Count 100L, Mean Platelet Volume 5.8L, Neutrophils (%) (Auto) , Lymphocytes (%) (Auto) , Monocytes (%) (Auto) , Eosinophils (%) (Auto) , Basophils (%) (Auto) , Differential Total Cells Counted 100, Neutrophils % ( Manual) 78H, Lymphocytes % (Manual) 13L, Monocytes % (Manual) 8, Eosinophils % ( Manual) 1, Basophils % (Manual) 0, Band Neutrophils 0, Platelet Estimate DecreasedL, Platelet Morphology Normal, Anisocytosis 1+, Prothrombin Time 11.7H , Prothromb Time International Ratio 1.1, Activated Partial Thromboplast Time 34H, Sodium Level 139, Potassium Level 3.1L, Chloride Level 105, Carbon Dioxide Level 25, Anion Gap 9, Blood Urea Nitrogen 56H, Creatinine 2.3H, Estimat Glomerular Filtration Rate 29.2, Glucose Level 192H, Calcium Level 8.9, Phosphorus Level 2.7, Magnesium Level 2.2 Height (Feet): 6 Height (Inches): 0.00 Weight (Pounds): 199 General Appearance: other - intubated EENT: other - ETT Neck: normal alignment Cardiovascular: regular rhythm Respiratory/Chest: decreased breath sounds Abdomen: normal bowel sounds Objective Current Medications Medications (Trade) Dose Ordered Sig/Marquis Route PRN Reason Start Time Stop Time Status Last Admin Dose Admin Acetaminophen (Tylenol) 650 mg Q4H PRN ORAL Mild Pain (Pain Scale 1-3) 02/07/19 11:15 03/08/19 17:29 02/22/19 14:37 Acetaminophen/ Butalbital/ Caffeine (Fioricet) 1 tab Q8H PRN ORAL For Headache 02/08/19 17:15 03/10/19 17:14 Albuterol/ Ipratropium (Albuterol/ Ipratropium) 3 ml Q4H PRN HHN Shortness of Breath 02/26/19 12:30 03/03/19 12:29 Albuterol/ Ipratropium (Albuterol/ Ipratropium) 3 ml Q6HRT HHN 02/26/19 13:00 03/03/19 12:59 03/02/19 07:10 Amlodipine Besylate (Norvasc) 10 mg DAILY NG 02/15/19 09:00 03/14/19 15:59 03/02/19 08:22 Artificial Tears (Lacri-Lube) 1 applic AC+HS BOTH EYES 02/18/19 06:30 03/20/19 06:29 03/02/19 11:47 Bisacodyl (Dulcolax) 5 mg DAILYPRN PRN ORAL Constipation 02/08/19 17:15 03/10/19 17:14 02/25/19 12:45 Cefepime HCl 2 gm/ Dextrose 110 ml @ 220 mls/hr Q24H IV 03/02/19 16:00 03/09/19 15:59 Chlorhexidine Gluconate (Jessy-Hex 2%) 1 applic DAILY@2000 TOPIC 02/25/19 20:00 03/27/19 19:59 03/01/19 20:44 Clindamycin HCl/ Dextrose 50 ml @ 100 mls/hr Q8HR IV 02/27/19 22:00 03/06/19 21:59 03/02/19 06:26 Clonidine HCl (Catapres Tab) 0.1 mg EVERY 12 HOURS NG 02/25/19 21:00 03/19/19 13:59 03/02/19 08:34 Dextrose (Dextrose 50%) 25 ml Q30M PRN IV Hypoglycemia 03/01/19 07:15 03/31/19 07:14 Dextrose (Dextrose 50%) 50 ml Q30M PRN IV Hypoglycemia 03/01/19 07:15 03/31/19 07:14 Docusate Sodium (Colace) 100 mg TID GT 02/12/19 18:00 03/12/19 08:59 03/02/19 08:25 Fentanyl Citrate 2500 mcg/Sodium Chloride 250 ml @ 0 mls/hr Q24H IV 02/23/19 20:30 03/02/19 20:29 03/02/19 04:09 Fluconazole/ Sodium Chloride 100 ml @ 100 mls/hr Q24H IV 02/26/19 18:00 03/05/19 17:59 03/01/19 18:40 Furosemide (Lasix) 40 mg DAILY IV 03/01/19 09:00 03/31/19 08:59 03/02/19 08:26 Guaifenesin (Mucinex ER) 600 mg TWICE A DAY ORAL 02/07/19 18:00 03/09/19 08:59 03/02/19 08:23 Heparin Sodium (Porcine) (Heparin 5000 units/ml) 5,000 units EVERY 12 HOURS SUBQ 02/26/19 21:00 03/28/19 20:59 02/28/19 21:05 Hydralazine HCl (Apresoline) 10 mg Q4H PRN IV bp over 165 syst 02/17/19 10:15 03/19/19 10:14 02/19/19 14:45 Hydralazine HCl (Apresoline) 50 mg Q8HR NG 02/22/19 14:00 03/21/19 21:59 03/02/19 06:27 Insulin Aspart (NovoLOG) EVERY 6 HOURS SUBQ 02/26/19 12:00 03/28/19 11:59 03/02/19 11:51 Insulin Detemir (Levemir) 6 units DAILY SUBQ 03/01/19 09:00 03/31/19 08:59 03/02/19 08:32 Isosorbide Dinitrate (Isordil) 20 mg Q6HR NG 02/22/19 12:00 03/15/19 12:59 03/02/19 06:27 Lorazepam (Ativan 2mg/ml 1ml) 2 mg Q2H PRN IV For Anxiety 02/27/19 13:48 03/06/19 13:47 03/02/19 08:43 Metoclopramide HCl (Reglan) 5 mg Q8H IVP 02/26/19 09:00 03/28/19 08:59 03/02/19 08:26 Metolazone (Zaroxolyn) 10 mg DAILY NG 02/19/19 10:00 03/21/19 09:59 03/02/19 08:23 Metoprolol Tartrate (Lopressor) 100 mg Q12HR ORAL 02/22/19 21:00 03/08/19 20:59 03/02/19 08:22 Midazolam HCl (Versed 2mg/2ml vial) 1 mg Q2H PRN IVP Agitation 02/13/19 08:45 03/15/19 08:44 02/27/19 11:05 Neomycin/ Polymyxin/ Dexamethasone (Maxitrol Opth Oint) 1 applic BEDTIME BOTH EYES 02/18/19 21:00 03/20/19 20:59 03/01/19 20:46 Nitroglycerin (Ntg) 0.4 mg Q5M PRN SL Prn Chest Pain 02/07/19 11:00 03/08/19 17:29 02/08/19 07:42 Ondansetron HCl (Zofran) 4 mg Q6H PRN IVP Nausea & Vomiting 02/07/19 11:15 03/08/19 11:14 02/09/19 00:58 Pantoprazole (Protonix) 40 mg DAILY IVP 02/26/19 09:00 03/24/19 20:59 03/02/19 08:25 Patient Own Medication (Patient's Own Med) 1 ea BID ORAL 02/07/19 18:00 03/09/19 17:59 03/02/19 09:38 Patient Own Medication (Patient's Own Med) 1 ea Q48H ORAL 02/18/19 09:00 03/20/19 08:59 03/02/19 09:38 Patient Own Medication (Patient's Own Med) 2 ea DAILY ORAL 02/08/19 09:00 03/10/19 08:59 03/02/19 09:38 Polyethylene Glycol (Miralax) 17 gm BEDTIME ORAL 02/08/19 21:00 03/10/19 20:59 03/01/19 20:44 Primaquine Phosphate (Primaquine) 26.3 mg DAILY ORAL 02/28/19 09:00 03/30/19 08:59 03/02/19 08:23 Sennosides (Senokot) 8.6 mg DAILY ORAL 02/13/19 12:00 03/15/19 11:59 03/02/19 08:23 Carlito Nichols MD Mar 02, 2019 13:25
--- NOTE | 2019-03-02 13:30 | NUR ---
NURSE NOTES: Pt was transferred back to ICU from OR via hospital bed, accompanied by Wilfrid BRYANT RN, anesthesiologist and RT. Pt switched back to ICU car attendant and vent with previous vent settings from this morning, car attendant displays NSR with heart rate in the 80's now, and O2sat now at 94%. Pt is sedated with Fentanyl per anesthesiologist. Per DATA TRANSCRIBER, pt tolerated procedure well. Currently stable VS. Addendum: 03/02/19 at 2 by HONEY MARC RN Pt has trach, Shiley 8.0, dressing is dry/intact.
--- NOTE | 2019-03-02 14:00 | NUR ---
NURSE NOTES: Pt has been placed back on Fentanyl drip currently at 100mcg/hr to maintain RASS score -2 light sedation. VS stable. Bilateral soft wrist restraints are on pt to prevent pulling out trach-ET and IV lines. Oral care done.
--- NOTE | 2019-03-02 14:25 | Brief Operative Note ---
Immediate Post Operative Note Operative Note Pre-op Diagnosis: respiratory insufficiency, hypoxia, acidosis, renal insufficiency Procedure: tracheostomy Post-op Diagnosis: same as pre-op Surgeon: bo Anesthesiologist: herberth Anesthesia: general, local Specimen: none Complications: none Condition: stable Fluids: see records Estimated Blood Loss: minimal Drains: none Implant(s) used?: Moiz Carmona Mar 02, 2019 14:25
--- NOTE | 2019-03-02 14:57 | Nephrology Progress Note ---
Assessment/Plan Problem List: (1) ISH (acute kidney injury) Assessment: Cr lowering (2) HIV (human immunodeficiency virus infection) (3) NSTEMI (non-ST elevated myocardial infarction) Assessment: troponin decreasing (4) Hypoxia (5) Anemia (6) Diabetes Assessment Acute Renal failure- Cr leveling- Urine out put is good Acidosis improved Acute respiratory failure- Require intubation and Mechanical Ventilation- Anemia- Elevated troponin / GA HTN DM HIV Antibody + Plan due Trach today- adjust BP meds on feeding 3% saline once IV protonix NGt suction transfusiosn as needed no need for HD BP med adjustment UA and urine studies Avoid Nephrotoxics as possible Monitor renal parameters keep BP and BS in check Per orders No HD at this time Kidney RADHA noted adjust BP meds add Isordil Subjective ROS Limited/Unobtainable: Yes Objective Objective Last 24 Hour Vital Signs Date Time Temp Pulse Resp B/P (MAP) Pulse Ox O2 Delivery O2 Flow Rate FiO2 03/02/19 14:20 153/59 03/02/19 14:00 76 24 153/59 (90) 97 03/02/19 13:47 71 24 97 Mechanical Ventilator 40 03/02/19 13:39 70 25 40 03/02/19 13:38 70 24 98 Mechanical Ventilator 40 03/02/19 13:05 72 18 99 03/02/19 13:00 98.6 72 135/50 (78) 03/02/19 12:00 40 03/02/19 12:00 Mechanical Ventilator Mechanical Ventilator 03/02/19 12:00 69 03/02/19 11:00 72 21 147/62 (90) 99 03/02/19 11:00 69 29 40 03/02/19 10:00 71 15 128/54 (78) 98 03/02/19 09:30 71 14 125/49 (74) 97 03/02/19 09:12 78 24 40 03/02/19 09:00 86 21 129/57 (81) 99 03/02/19 08:34 139/54 03/02/19 08:30 99 20 141/96 (111) 94 03/02/19 08:22 84 139/54 03/02/19 08:22 84 139/54 03/02/19 08:00 79 03/02/19 08:00 Mechanical Ventilator Mechanical Ventilator 03/02/19 08:00 98.9 82 23 139/54 (82) 98 03/02/19 08:00 40 03/02/19 07:20 78 24 98 Mechanical Ventilator 40 03/02/19 07:10 81 24 99 Mechanical Ventilator 40 03/02/19 07:00 75 18 128/52 (77) 98 03/02/19 06:56 75 26 40 03/02/19 06:30 77 16 141/56 (84) 98 03/02/19 06:27 143/56 03/02/19 06:27 143/56 03/02/19 06:00 98.5 78 19 143/56 (85) 98 03/02/19 05:30 77 18 148/56 (86) 98 03/02/19 05:00 18 Mechanical Ventilator 03/02/19 05:00 77 19 147/67 (93) 98 03/02/19 04:51 79 25 40 03/02/19 04:30 73 15 133/51 (78) 99 03/02/19 04:09 17 Mechanical Ventilator 03/02/19 04:00 Mechanical Ventilator Mechanical Ventilator 03/02/19 04:00 40 03/02/19 04:00 18 Mechanical Ventilator 03/02/19 04:00 76 03/02/19 04:00 76 15 133/61 (85) 99 03/02/19 03:30 83 18 169/65 (99) 98 03/02/19 03:00 73 11 139/59 (85) 98 03/02/19 03:00 18 Mechanical Ventilator 03/02/19 02:32 73 24 40 03/02/19 02:30 73 11 139/59 (85) 98 03/02/19 02:00 20 Mechanical Ventilator 03/02/19 02:00 76 13 143/65 (91) 98 03/02/19 01:30 85 21 156/70 (98) 96 03/02/19 01:25 76 27 99 Mechanical Ventilator 40 03/02/19 01:14 79 27 99 Mechanical Ventilator 40 03/02/19 01:12 80 25 40 03/02/19 01:00 18 Mechanical Ventilator 03/02/19 01:00 83 18 156/70 (98) 97 03/02/19 00:30 80 12 151/59 (89) 97 03/02/19 00:28 158/64 03/02/19 00:00 Mechanical Ventilator Mechanical Ventilator 03/02/19 00:00 76 03/02/19 00:00 80 15 158/64 (95) 97 03/02/19 00:00 20 Mechanical Ventilator 03/01/19 23:30 81 22 159/59 (92) 98 03/01/19 23:10 81 24 40 03/01/19 23:00 20 Mechanical Ventilator 03/01/19 23:00 80 17 157/71 (99) 97 03/01/19 22:43 154/59 03/01/19 22:30 78 19 154/59 (90) 97 03/01/19 22:00 78 19 158/58 (91) 97 03/01/19 22:00 20 Mechanical Ventilator 03/01/19 21:22 162/72 03/01/19 21:10 81 25 40 03/01/19 21:00 17 Mechanical Ventilator 03/01/19 21:00 91 21 157/58 (91) 94 03/01/19 20:44 92 157/65 03/01/19 20:30 92 21 157/65 (95) 96 03/01/19 20:00 79 03/01/19 20:00 Mechanical Ventilator Mechanical Ventilator 03/01/19 20:00 98.5 89 22 151/61 (91) 97 03/01/19 20:00 17 Mechanical Ventilator 03/01/19 20:00 40 03/01/19 19:17 78 29 98 Mechanical Ventilator 40 03/01/19 19:09 85 28 97 Mechanical Ventilator 40 03/01/19 19:08 86 26 40 03/01/19 19:00 24 Mechanical Ventilator 100 03/01/19 19:00 88 23 144/58 (86) 97 03/01/19 18:30 91 159/65 (96) 95 03/01/19 18:24 157/60 03/01/19 18:00 88 164/64 (97) 97 03/01/19 18:00 24 Mechanical Ventilator 100 03/01/19 17:31 98.3 03/01/19 17:30 86 25 169/85 (113) 95 03/01/19 17:01 24 Mechanical Ventilator 100 03/01/19 17:00 87 26 171/65 (100) 94 03/01/19 16:53 82 29 40 03/01/19 16:00 82 03/01/19 16:00 40 03/01/19 16:00 Mechanical Ventilator Mechanical Ventilator 03/01/19 16:00 98.3 84 26 157/60 (92) 96 03/01/19 16:00 24 Mechanical Ventilator 100 03/01/19 15:00 80 19 144/53 (83) 97 03/01/19 15:00 24 Mechanical Ventilator 100 Intake and Output 03/01/19 03/02/19 19:00 07:00 Intake Total 1015.5 ml 612 ml Output Total 1825 ml 1200 ml Balance -809.5 ml -588 ml Free Water 120 ml 90 ml IV Total 422.5 ml 350 ml Tube Feeding 473 ml 172 ml Output Urine Total 1785 ml 1200 ml Stool Total 40 ml Laboratory Tests 03/02/19 05:01: White Blood Count 3.5L, Red Blood Count 2.78L, Hemoglobin 7.9L, Hematocrit 24.3L , Mean Corpuscular Volume 87, Mean Corpuscular Hemoglobin 28.4, Mean Corpuscular Hemoglobin Concent 32.5, Red Cell Distribution Width 16.8H, Platelet Count 100L, Mean Platelet Volume 5.8L, Neutrophils (%) (Auto) , Lymphocytes (%) (Auto) , Monocytes (%) (Auto) , Eosinophils (%) (Auto) , Basophils (%) (Auto) , Differential Total Cells Counted 100, Neutrophils % ( Manual) 78H, Lymphocytes % (Manual) 13L, Monocytes % (Manual) 8, Eosinophils % ( Manual) 1, Basophils % (Manual) 0, Band Neutrophils 0, Platelet Estimate DecreasedL, Platelet Morphology Normal, Anisocytosis 1+, Prothrombin Time 11.7H , Prothromb Time International Ratio 1.1, Activated Partial Thromboplast Time 34H, Sodium Level 139, Potassium Level 3.1L, Chloride Level 105, Carbon Dioxide Level 25, Anion Gap 9, Blood Urea Nitrogen 56H, Creatinine 2.3H, Estimat Glomerular Filtration Rate 29.2, Glucose Level 192H, Calcium Level 8.9, Phosphorus Level 2.7, Magnesium Level 2.2 Height (Feet): 6 Height (Inches): 0.00 Weight (Pounds): 199 EENT: other - vented Cardiovascular: tachycardia Respiratory/Chest: decreased breath sounds Abdomen: distended Objective no change Mike Mcdonald MD Mar 02, 2019 14:57
--- NOTE | 2019-03-02 15:00 | NUR ---
NURSE NOTES: VS stable. Fentanyl drip is maintained at 100mcg/hr to maintain RASS score of -2 light sedation.
[2019-03-02] MEDS ORDERED: Cefepime 2gm/D5W 110ml IV SCH ×2 (16:00)
--- NOTE | 2019-03-02 16:00 | NUR ---
NURSE NOTES: Pt was cleaned, gown/linens changed. Pt was repositioned with extremities elevated on pillows and bilateral SCDs maintained for DVT prophylaxis as ordered. Fentanyl drip maintained at 100mcg/hr to keep RASS score of -2 light sedation. VS stable. Simon continues to drain 120-200ml/hourly urine output dark yellow. Per Dr Pond' order NGT feeding Nepro was resumed. Pt is tolerating well with no residual.
--- NOTE | 2019-03-02 16:05 | Neurology Progress Note ---
Interim History Interim History ROS Limited/Unobtainable: Yes Complaints: AMS Interim History sp trach moving all 4 Objective Physical Exam Last Vital Signs Date Time Temp Pulse Resp B/P (MAP) Pulse Ox O2 Delivery O2 Flow Rate FiO2 03/02/19 15:00 75 24 142/51 (81) 98 03/02/19 14:58 50 03/02/19 13:47 Mechanical Ventilator 03/02/19 13:00 98.6 02/26/19 12:53 75.0 Laboratory Tests Test 03/02/19 05:01 White Blood Count 3.5 K/UL (4.8-10.8) L Red Blood Count 2.78 M/UL (4.70-6.10) L Hemoglobin 7.9 G/DL (14.2-18.0) L Hematocrit 24.3 % (42.0-52.0) L Mean Corpuscular Volume 87 FL (80-99) Mean Corpuscular Hemoglobin 28.4 PG (27.0-31.0) Mean Corpuscular Hemoglobin Concent 32.5 G/DL (32.0-36.0) Red Cell Distribution Width 16.8 % (11.6-14.8) H Platelet Count 100 K/UL (150-450) L Mean Platelet Volume 5.8 FL (6.5-10.1) L Neutrophils (%) (Auto) % (45.0-75.0) Lymphocytes (%) (Auto) % (20.0-45.0) Monocytes (%) (Auto) % (1.0-10.0) Eosinophils (%) (Auto) % (0.0-3.0) Basophils (%) (Auto) % (0.0-2.0) Differential Total Cells Counted 100 Neutrophils % (Manual) 78 % (45-75) H Lymphocytes % (Manual) 13 % (20-45) L Monocytes % (Manual) 8 % (1-10) Eosinophils % (Manual) 1 % (0-3) Basophils % (Manual) 0 % (0-2) Band Neutrophils 0 % (0-8) Platelet Estimate Decreased L Platelet Morphology Normal Anisocytosis 1+ Prothrombin Time 11.7 SEC (9.30-11.50) H Prothromb Time International Ratio 1.1 (0.9-1.1) Activated Partial Thromboplast Time 34 SEC (23-33) H Sodium Level 139 MMOL/L (136-145) Potassium Level 3.1 MMOL/L (3.5-5.1) L Chloride Level 105 MMOL/L (98-107) Carbon Dioxide Level 25 MMOL/L (21-32) Anion Gap 9 mmol/L (5-15) Blood Urea Nitrogen 56 mg/dL (7-18) H Creatinine 2.3 MG/DL (0.55-1.30) H Estimat Glomerular Filtration Rate 29.2 mL/min (>60) Glucose Level 192 MG/DL (74-106) H Calcium Level 8.9 MG/DL (8.5-10.1) Phosphorus Level 2.7 MG/DL (2.5-4.9) Magnesium Level 2.2 MG/DL (1.8-2.4) General: well developed, well nourished, other Head: normocophalic, other Neck: no rigidity EENT: benign, other Neurologic Exam Mental Status: other Speech: other Language: other Cranial Nerve II: other Cranial Nerves III, IV, : other Cranial Nerve V: other Cranial Nerve VII: other Cranial Nerve VIII: other Cranial Nerve IX: other Cranial Nerve X: other Cranial Nerve XI: other Cranial Nerve XII: other Motor System: other Sensory: other Coordination: other Deep Tendon Reflexes: 0 bicep (L), 0 bicep (R), 0 tricep (L), 0 tricep (R), 0 brachioradialis (L), 0 brachioradialis (R), 0 knee (L), 0 knee (R), 0 ankle (L) , 0 ankle (R) Reflexes: mute plantar (L), mute plantar (R) Stance: other Gait: other Objective he is intubated and sedated. pupils are symmetric and reactive corneals present he withdraws to noxious stimuli without localizing. 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 (33) acute small R pontomedullary and left cerebellar peduncle strokes. 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
--- NOTE | 2019-03-02 16:36 | Cardiac Electrophysiology PN ---
Assessment/Plan Assessment/Plan 1. Non-ST elevation myocardial infarction with peak troponin of more than 10, down to 3.[address]-T wave abnormalities. Continue Lipitor, Imdur and metoprolol Not a candidate for Cardiac catheterization 2. Hypertension. Metoprolol 100 bid, Isordil 20 q6 , Clonidine 0.1 bid, Lasix 40 iv daily, Metolazone 5, Norvasc 10 daily and hydralazine 50 q 8 hr DC Isordil and increase Clonidine to 0.2 q 8hrs 3. Respiratory failure due to Multilobar Pneumonia. Extubated 02/19/19. Reintubated 02/20/19 S/P Tracheostomy 03/02/19 4. Hyperlipidemia. On Lipitor. 5. Human immunodeficiency virus. On anti-retroviral therapy with undetectable viral load. 6. ARF Cr 3 7. Bleeding from ETT and NG tube. S/P PRBC. Off Aspirin and Lovenox No further bleeding 8. Dysphagia. PEG Tuesday pending DW RN Subjective Subjective In ICU on the vent and had Tracheostomy today Objective Last 24 Hour Vital Signs Date Time Temp Pulse Resp B/P (MAP) Pulse Ox O2 Delivery O2 Flow Rate FiO2 03/02/19 16:00 50 03/02/19 16:00 Mechanical Ventilator Mechanical Ventilator 03/02/19 15:00 75 24 142/51 (81) 98 03/02/19 14:58 76 25 50 03/02/19 14:20 153/59 03/02/19 14:00 76 24 153/59 (90) 97 03/02/19 13:47 71 24 97 Mechanical Ventilator 40 03/02/19 13:39 70 25 40 03/02/19 13:38 70 24 98 Mechanical Ventilator 40 03/02/19 13:05 72 18 99 03/02/19 13:00 98.6 72 135/50 (78) 03/02/19 12:00 40 03/02/19 12:00 Mechanical Ventilator Mechanical Ventilator 03/02/19 12:00 69 03/02/19 11:00 72 21 147/62 (90) 99 03/02/19 11:00 69 29 40 03/02/19 10:00 71 15 128/54 (78) 98 03/02/19 09:30 71 14 125/49 (74) 97 03/02/19 09:12 78 24 40 03/02/19 09:00 86 21 129/57 (81) 99 03/02/19 08:34 139/54 03/02/19 08:30 99 20 141/96 (111) 94 03/02/19 08:22 84 139/54 03/02/19 08:22 84 139/54 03/02/19 08:00 79 03/02/19 08:00 Mechanical Ventilator Mechanical Ventilator 03/02/19 08:00 98.9 82 23 139/54 (82) 98 03/02/19 08:00 40 03/02/19 07:20 78 24 98 Mechanical Ventilator 40 03/02/19 07:10 81 24 99 Mechanical Ventilator 40 03/02/19 07:00 75 18 128/52 (77) 98 03/02/19 06:56 75 26 40 03/02/19 06:30 77 16 141/56 (84) 98 03/02/19 06:27 143/56 03/02/19 06:27 143/56 03/02/19 06:00 98.5 78 19 143/56 (85) 98 03/02/19 05:30 77 18 148/56 (86) 98 03/02/19 05:00 18 Mechanical Ventilator 03/02/19 05:00 77 19 147/67 (93) 98 03/02/19 04:51 79 25 40 03/02/19 04:30 73 15 133/51 (78) 99 03/02/19 04:09 17 Mechanical Ventilator 03/02/19 04:00 Mechanical Ventilator Mechanical Ventilator 03/02/19 04:00 40 03/02/19 04:00 18 Mechanical Ventilator 03/02/19 04:00 76 03/02/19 04:00 76 15 133/61 (85) 99 03/02/19 03:30 83 18 169/65 (99) 98 03/02/19 03:00 73 11 139/59 (85) 98 03/02/19 03:00 18 Mechanical Ventilator 03/02/19 02:32 73 24 40 03/02/19 02:30 73 11 139/59 (85) 98 03/02/19 02:00 20 Mechanical Ventilator 03/02/19 02:00 76 13 143/65 (91) 98 03/02/19 01:30 85 21 156/70 (98) 96 03/02/19 01:25 76 27 99 Mechanical Ventilator 40 03/02/19 01:14 79 27 99 Mechanical Ventilator 40 03/02/19 01:12 80 25 40 03/02/19 01:00 18 Mechanical Ventilator 03/02/19 01:00 83 18 156/70 (98) 97 03/02/19 00:30 80 12 151/59 (89) 97 03/02/19 00:28 158/64 03/02/19 00:00 Mechanical Ventilator Mechanical Ventilator 03/02/19 00:00 76 03/02/19 00:00 80 15 158/64 (95) 97 03/02/19 00:00 20 Mechanical Ventilator 03/01/19 23:30 81 22 159/59 (92) 98 03/01/19 23:10 81 24 40 03/01/19 23:00 20 Mechanical Ventilator 03/01/19 23:00 80 17 157/71 (99) 97 03/01/19 22:43 154/59 03/01/19 22:30 78 19 154/59 (90) 97 03/01/19 22:00 78 19 158/58 (91) 97 03/01/19 22:00 20 Mechanical Ventilator 03/01/19 21:22 162/72 03/01/19 21:10 81 25 40 03/01/19 21:00 17 Mechanical Ventilator 03/01/19 21:00 91 21 157/58 (91) 94 03/01/19 20:44 92 157/65 03/01/19 20:30 92 21 157/65 (95) 96 03/01/19 20:00 79 03/01/19 20:00 Mechanical Ventilator Mechanical Ventilator 03/01/19 20:00 98.5 89 22 151/61 (91) 97 03/01/19 20:00 17 Mechanical Ventilator 03/01/19 20:00 40 03/01/19 19:17 78 29 98 Mechanical Ventilator 40 03/01/19 19:09 85 28 97 Mechanical Ventilator 40 03/01/19 19:08 86 26 40 03/01/19 19:00 24 Mechanical Ventilator 100 03/01/19 19:00 88 23 144/58 (86) 97 03/01/19 18:30 91 159/65 (96) 95 03/01/19 18:24 157/60 03/01/19 18:00 88 164/64 (97) 97 03/01/19 18:00 24 Mechanical Ventilator 100 03/01/19 17:31 98.3 03/01/19 17:30 86 25 169/85 (113) 95 03/01/19 17:01 24 Mechanical Ventilator 100 03/01/19 17:00 87 26 171/65 (100) 94 03/01/19 16:53 82 29 40 Intake and Output 03/01/19 03/02/19 19:00 07:00 Intake Total 1015.5 ml 612 ml Output Total 1825 ml 1200 ml Balance -809.5 ml -588 ml Free Water 120 ml 90 ml IV Total 422.5 ml 350 ml Tube Feeding 473 ml 172 ml Output Urine Total 1785 ml 1200 ml Stool Total 40 ml Laboratory Tests Test 03/02/19 05:01 White Blood Count 3.5 K/UL (4.8-10.8) L Red Blood Count 2.78 M/UL (4.70-6.10) L Hemoglobin 7.9 G/DL (14.2-18.0) L Hematocrit 24.3 % (42.0-52.0) L Mean Corpuscular Volume 87 FL (80-99) Mean Corpuscular Hemoglobin 28.4 PG (27.0-31.0) Mean Corpuscular Hemoglobin Concent 32.5 G/DL (32.0-36.0) Red Cell Distribution Width 16.8 % (11.6-14.8) H Platelet Count 100 K/UL (150-450) L Mean Platelet Volume 5.8 FL (6.5-10.1) L Neutrophils (%) (Auto) % (45.0-75.0) Lymphocytes (%) (Auto) % (20.0-45.0) Monocytes (%) (Auto) % (1.0-10.0) Eosinophils (%) (Auto) % (0.0-3.0) Basophils (%) (Auto) % (0.0-2.0) Differential Total Cells Counted 100 Neutrophils % (Manual) 78 % (45-75) H Lymphocytes % (Manual) 13 % (20-45) L Monocytes % (Manual) 8 % (1-10) Eosinophils % (Manual) 1 % (0-3) Basophils % (Manual) 0 % (0-2) Band Neutrophils 0 % (0-8) Platelet Estimate Decreased L Platelet Morphology Normal Anisocytosis 1+ Prothrombin Time 11.7 SEC (9.30-11.50) H Prothromb Time International Ratio 1.1 (0.9-1.1) Activated Partial Thromboplast Time 34 SEC (23-33) H Sodium Level 139 MMOL/L (136-145) Potassium Level 3.1 MMOL/L (3.5-5.1) L Chloride Level 105 MMOL/L (98-107) Carbon Dioxide Level 25 MMOL/L (21-32) Anion Gap 9 mmol/L (5-15) Blood Urea Nitrogen 56 mg/dL (7-18) H Creatinine 2.3 MG/DL (0.55-1.30) H Estimat Glomerular Filtration Rate 29.2 mL/min (>60) Glucose Level 192 MG/DL (74-106) H Calcium Level 8.9 MG/DL (8.5-10.1) Phosphorus Level 2.7 MG/DL (2.5-4.9) Magnesium Level 2.2 MG/DL (1.8-2.4) Microbiology Date/Time Source Procedure Growth Status 03/01/19 20:00 Sputum Induced Gram Stain - Final Resulted 03/01/19 20:00 Sputum Induced Sputum Culture Pending Resulted Objective HEAD AND NECK: No JVD. S/P tracheostomy with NG tube LUNGS: Coarse rhonchi. CARDIOVASCULAR: Regular S1 and S2 with no gallop or murmur. ABDOMEN: Soft. EXTREMITIES: 1 plus pitting edema. Murray Francois MD Mar 02, 2019 16:36
--- NOTE | 2019-03-02 16:38 | Infectious Diseases Prog Note ---
Assessment/Plan Assessment/Plan A) 1) pneumonia - ? aspiration/hcap, ? CAP, ? pneumocystis pna, ? fungal ( cryptococcus), sepsis, leukocytosis, ? 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, on anti-retroviral treatment 4) rule out TB pna, in isolation - afb smear on bronchoscopy is negative, TB spot negative 5) pmh noted - hypertension, ckd, anemia, dm, cva, tia, migraines 6) allergies - nkda, sh-negative, fh-nc, mar noted 7) d/w RN P) 1) abx changed to clindamycin/primaquine (for pneumocystis pna), cefepime, and diflucan, bactrim stopped for worsening creatinine - day # 19/21 pneumocystis treatment - recheck sputum culture (increased secretions per RN) - s/p trach 2) leukocytosis better, monitor labs and chest x-ray, no fevers, no pressors 3) diarrhea but on stool softeners 4) weaning per pulmonary medicine 5) icu supportive care, vent support 6) skin care per protocol 7) d/w Dr. Meredith Subjective Constitutional: Reports: fatigue, other - s/p trach, on vent, no pressors ; Denies: fever HEENT: Reports: congestion Respiratory: Reports: shortness of breath Cardiovascular: Reports: other - no pressors Gastrointestinal/Abdominal: Reports: other - hx rectal tube ; Denies: nausea, vomiting Neurologic: Reports: other - lethargic, weak Psychiatric: Reports: other - NA Skin: Denies: rash Hematologic: Denies: bleeding Musculoskeletal: Reports: other - NA Allergies: Coded Allergies: No Known Allergies (Unverified , 02/05/13) Objective Vital Signs Last 24 Hour Vital Signs Date Time Temp Pulse Resp B/P (MAP) Pulse Ox O2 Delivery O2 Flow Rate FiO2 03/02/19 16:00 50 03/02/19 16:00 Mechanical Ventilator Mechanical Ventilator 03/02/19 15:00 75 24 142/51 (81) 98 03/02/19 14:58 76 25 50 03/02/19 14:20 153/59 03/02/19 14:00 76 24 153/59 (90) 97 03/02/19 13:47 71 24 97 Mechanical Ventilator 40 03/02/19 13:39 70 25 40 03/02/19 13:38 70 24 98 Mechanical Ventilator 40 03/02/19 13:05 72 18 99 03/02/19 13:00 98.6 72 135/50 (78) 03/02/19 12:00 40 03/02/19 12:00 Mechanical Ventilator Mechanical Ventilator 03/02/19 12:00 69 03/02/19 11:00 72 21 147/62 (90) 99 03/02/19 11:00 69 29 40 03/02/19 10:00 71 15 128/54 (78) 98 03/02/19 09:30 71 14 125/49 (74) 97 03/02/19 09:12 78 24 40 03/02/19 09:00 86 21 129/57 (81) 99 03/02/19 08:34 139/54 03/02/19 08:30 99 20 141/96 (111) 94 03/02/19 08:22 84 139/54 03/02/19 08:22 84 139/54 03/02/19 08:00 79 03/02/19 08:00 Mechanical Ventilator Mechanical Ventilator 03/02/19 08:00 98.9 82 23 139/54 (82) 98 03/02/19 08:00 40 03/02/19 07:20 78 24 98 Mechanical Ventilator 40 03/02/19 07:10 81 24 99 Mechanical Ventilator 40 03/02/19 07:00 75 18 128/52 (77) 98 03/02/19 06:56 75 26 40 03/02/19 06:30 77 16 141/56 (84) 98 03/02/19 06:27 143/56 03/02/19 06:27 143/56 03/02/19 06:00 98.5 78 19 143/56 (85) 98 03/02/19 05:30 77 18 148/56 (86) 98 03/02/19 05:00 18 Mechanical Ventilator 03/02/19 05:00 77 19 147/67 (93) 98 03/02/19 04:51 79 25 40 03/02/19 04:30 73 15 133/51 (78) 99 03/02/19 04:09 17 Mechanical Ventilator 03/02/19 04:00 Mechanical Ventilator Mechanical Ventilator 03/02/19 04:00 40 03/02/19 04:00 18 Mechanical Ventilator 03/02/19 04:00 76 03/02/19 04:00 76 15 133/61 (85) 99 03/02/19 03:30 83 18 169/65 (99) 98 03/02/19 03:00 73 11 139/59 (85) 98 03/02/19 03:00 18 Mechanical Ventilator 03/02/19 02:32 73 24 40 03/02/19 02:30 73 11 139/59 (85) 98 03/02/19 02:00 20 Mechanical Ventilator 03/02/19 02:00 76 13 143/65 (91) 98 03/02/19 01:30 85 21 156/70 (98) 96 03/02/19 01:25 76 27 99 Mechanical Ventilator 40 03/02/19 01:14 79 27 99 Mechanical Ventilator 40 03/02/19 01:12 80 25 40 03/02/19 01:00 18 Mechanical Ventilator 03/02/19 01:00 83 18 156/70 (98) 97 03/02/19 00:30 80 12 151/59 (89) 97 03/02/19 00:28 158/64 03/02/19 00:00 Mechanical Ventilator Mechanical Ventilator 03/02/19 00:00 76 03/02/19 00:00 80 15 158/64 (95) 97 03/02/19 00:00 20 Mechanical Ventilator 03/01/19 23:30 81 22 159/59 (92) 98 03/01/19 23:10 81 24 40 03/01/19 23:00 20 Mechanical Ventilator 03/01/19 23:00 80 17 157/71 (99) 97 03/01/19 22:43 154/59 03/01/19 22:30 78 19 154/59 (90) 97 03/01/19 22:00 78 19 158/58 (91) 97 03/01/19 22:00 20 Mechanical Ventilator 03/01/19 21:22 162/72 03/01/19 21:10 81 25 40 03/01/19 21:00 17 Mechanical Ventilator 03/01/19 21:00 91 21 157/58 (91) 94 03/01/19 20:44 92 157/65 03/01/19 20:30 92 21 157/65 (95) 96 03/01/19 20:00 79 03/01/19 20:00 Mechanical Ventilator Mechanical Ventilator 03/01/19 20:00 98.5 89 22 151/61 (91) 97 03/01/19 20:00 17 Mechanical Ventilator 03/01/19 20:00 40 03/01/19 19:17 78 29 98 Mechanical Ventilator 40 03/01/19 19:09 85 28 97 Mechanical Ventilator 40 03/01/19 19:08 86 26 40 03/01/19 19:00 24 Mechanical Ventilator 100 03/01/19 19:00 88 23 144/58 (86) 97 03/01/19 18:30 91 159/65 (96) 95 03/01/19 18:24 157/60 03/01/19 18:00 88 164/64 (97) 97 03/01/19 18:00 24 Mechanical Ventilator 100 03/01/19 17:31 98.3 03/01/19 17:30 86 25 169/85 (113) 95 03/01/19 17:01 24 Mechanical Ventilator 100 03/01/19 17:00 87 26 171/65 (100) 94 03/01/19 16:53 82 29 40 Height (Feet): 6 Height (Inches): 0.00 Weight (Pounds): 199 General Appearance: no acute distress HEENT: normocephalic, atraumatic, anicteric Respiratory/Chest: lungs clear, normal breath sounds, no respiratory distress Cardiovascular: normal rate, regular rhythm, no gallop/murmur, no JVD Abdomen: normal bowel sounds, soft, non tender, no organomegaly, non distended Genitourinary: other - + smith Extremities: no cyanosis Skin: no rash Neurologic/Psychiatric: other - lethargic, weak, sedated Lymphatic: no neck adenopathy Musculoskeletal: no effusion Objective Chest x-ray - 02/10/19 - COMPARISON: Chest radiograph on 02/09/2019 FINDINGS: Hardware: Endotracheal tube terminates in the region of the mid thoracic trachea. Enteric tube courses past the diaphragm and out of the field of view. Lungs/pleura: Slightly decreased but persistent patchy consolidations in the right lung. Slightly decreased left perihilar opacities/consolidations. Possible small bilateral pleural effusions. Heart/mediastinum: Stable mild enlargement of the cardiomediastinal silhouette. Soft tissues: Unremarkable. Bones: No acute fracture. Degenerative changes of the visualized right acromioclavicular joint. Degenerative changes of the spine. Upper abdomen: Normal. 02/11/19 - chest x-ray - IMPRESSION: Slightly decreased but persistent patchy consolidations in the right lung. Slightly decreased left perihilar opacities. Findings may IMPRESSION: 1. No significant change in the interstitial and alveolar opacities in bilateral lungs. 2. Possible small bilateral pleural effusions, unchanged. represent infectious/inflammatory process and/or pulmonary edema. Possible small bilateral pleural effusions. 02/16/19 - chest x-ray - Impression: Worsening of aeration with increasing interstitial and bilateral predominantly perihilar airspace disease. Findings likely related to worsening CHF/pulmonary edema. Superimposed pneumonia to be excluded clinically. Follow-up recommended. Chest x-ray - 02/18/19 - COMPARISON: Chest radiograph on 02/16/2019 FINDINGS: Hardware: Endotracheal tube terminates in the region of the mid thoracic trachea. Enteric tube courses past the diaphragm and out of the field of view. Lungs/pleura: Slightly decreased but persistent hazy and interstitial opacities. Persistent small left pleural effusion. Heart/mediastinum: Stable mild enlargement of the cardiomediastinal silhouette. Soft tissues: Unremarkable. Bones: No acute fracture. Upper abdomen: Normal. IMPRESSION: Slightly decreased but persistent changes suggesting pulmonary edema. Component of infectious/inflammatory process is not excluded. Persistent small left pleural effusion. Chest x-ray - 02/20/19 - Procedure: XRAY Chest 1v Indication: Dyspnea Comparison: Earlier same day A single view chest radiograph was obtained. Findings: Intubation noted. The endotracheal tube is in good position about 3 cm above the christal. Cardiomegaly again noted. Moderate pulmonary vascular congestion demonstrated. IMPRESSION: Endotracheal tube in good position. CHF Chest x-ray - - FINDINGS: The tip of the endotracheal tube is appropriately positioned, projecting between the clavicular heads. The sidehole of the enteric tube projects within the stomach. Extensive bilateral consolidation is again noted. Favor multilobar pneumonia. Heart size is borderline, but likely exaggerated by portable technique. No pneumothorax. Bony degenerative changes. IMPRESSION: Extensive airspace consolidation, similar to prior. Favor multilobar pneumonia. Appropriately positioned tubes. Chest x-ray - 02/24/19 - IMPRESSION: No significant interval change compared to the prior chest x-ray. Cardiomegaly with diffuse interstitial and alveolar opacities, which may represent pulmonary edema versus pneumonia. Chest x-ray - 02/26/19 - IMPRESSION: No significant interval change compared to the prior chest x-ray. Cardiomegaly with diffuse interstitial and alveolar opacities, which may represent pulmonary edema versus pneumonia. Microbiology Date/Time Source Procedure Growth Status 02/20/19 19:00 Blood Blood Culture - Final NO GROWTH AFTER 5 DAYS Complete 03/01/19 20:00 Sputum Induced Gram Stain - Final Resulted 03/01/19 20:00 Sputum Induced Sputum Culture Pending Resulted 02/20/19 18:45 Indwelling Cath Urine Culture - Final NO GROWTH AFTER 48 HOURS Complete 02/06/19 17:10 Rectal Mucosa - Final NO CARBAPENEM-RESISTANT ENTEROBACTERI... Complete Microbiology Date/Time Source Procedure Growth Status 03/01/19 20:00 Sputum Induced Gram Stain - Final Resulted 03/01/19 20:00 Sputum Induced Sputum Culture Pending Resulted Laboratory Tests Test 03/02/19 05:01 White Blood Count 3.5 K/UL (4.8-10.8) L Red Blood Count 2.78 M/UL (4.70-6.10) L Hemoglobin 7.9 G/DL (14.2-18.0) L Hematocrit 24.3 % (42.0-52.0) L Mean Corpuscular Volume 87 FL (80-99) Mean Corpuscular Hemoglobin 28.4 PG (27.0-31.0) Mean Corpuscular Hemoglobin Concent 32.5 G/DL (32.0-36.0) Red Cell Distribution Width 16.8 % (11.6-14.8) H Platelet Count 100 K/UL (150-450) L Mean Platelet Volume 5.8 FL (6.5-10.1) L Neutrophils (%) (Auto) % (45.0-75.0) Lymphocytes (%) (Auto) % (20.0-45.0) Monocytes (%) (Auto) % (1.0-10.0) Eosinophils (%) (Auto) % (0.0-3.0) Basophils (%) (Auto) % (0.0-2.0) Differential Total Cells Counted 100 Neutrophils % (Manual) 78 % (45-75) H Lymphocytes % (Manual) 13 % (20-45) L Monocytes % (Manual) 8 % (1-10) Eosinophils % (Manual) 1 % (0-3) Basophils % (Manual) 0 % (0-2) Band Neutrophils 0 % (0-8) Platelet Estimate Decreased L Platelet Morphology Normal Anisocytosis 1+ Prothrombin Time 11.7 SEC (9.30-11.50) H Prothromb Time International Ratio 1.1 (0.9-1.1) Activated Partial Thromboplast Time 34 SEC (23-33) H Sodium Level 139 MMOL/L (136-145) Potassium Level 3.1 MMOL/L (3.5-5.1) L Chloride Level 105 MMOL/L (98-107) Carbon Dioxide Level 25 MMOL/L (21-32) Anion Gap 9 mmol/L (5-15) Blood Urea Nitrogen 56 mg/dL (7-18) H Creatinine 2.3 MG/DL (0.55-1.30) H Estimat Glomerular Filtration Rate 29.2 mL/min (>60) Glucose Level 192 MG/DL (74-106) H Calcium Level 8.9 MG/DL (8.5-10.1) Phosphorus Level 2.7 MG/DL (2.5-4.9) Magnesium Level 2.2 MG/DL (1.8-2.4) Current Medications Medications (Trade) Dose Ordered Sig/Marquis Route PRN Reason Start Time Stop Time Status Last Admin Dose Admin Acetaminophen (Tylenol) 650 mg Q4H PRN ORAL Mild Pain (Pain Scale 1-3) 02/07/19 11:15 03/08/19 17:29 02/22/19 14:37 Acetaminophen/ Butalbital/ Caffeine (Fioricet) 1 tab Q8H PRN ORAL For Headache 02/08/19 17:15 03/10/19 17:14 Albuterol/ Ipratropium (Albuterol/ Ipratropium) 3 ml Q4H PRN HHN Shortness of Breath 02/26/19 12:30 03/03/19 12:29 Albuterol/ Ipratropium (Albuterol/ Ipratropium) 3 ml Q6HRT HHN 02/26/19 13:00 03/03/19 12:59 03/02/19 13:24 Amlodipine Besylate (Norvasc) 10 mg DAILY NG 02/15/19 09:00 03/14/19 15:59 03/02/19 08:22 Artificial Tears (Lacri-Lube) 1 applic AC+HS BOTH EYES 02/18/19 06:30 03/20/19 06:29 03/02/19 11:47 Bisacodyl (Dulcolax) 5 mg DAILYPRN PRN ORAL Constipation 02/08/19 17:15 03/10/19 17:14 02/25/19 12:45 Cefepime HCl 2 gm/ Dextrose 110 ml @ 220 mls/hr Q24H IV 03/02/19 16:00 03/09/19 15:59 Chlorhexidine Gluconate (Jessy-Hex 2%) 1 applic DAILY@2000 TOPIC 02/25/19 20:00 03/27/19 19:59 03/01/19 20:44 Clindamycin HCl/ Dextrose 50 ml @ 100 mls/hr Q8HR IV 02/27/19 22:00 03/06/19 21:59 03/02/19 14:19 Clonidine HCl (Catapres Tab) 0.1 mg EVERY 12 HOURS NG 02/25/19 21:00 03/19/19 13:59 03/02/19 08:34 Dextrose (Dextrose 50%) 25 ml Q30M PRN IV Hypoglycemia 03/01/19 07:15 03/31/19 07:14 Dextrose (Dextrose 50%) 50 ml Q30M PRN IV Hypoglycemia 03/01/19 07:15 03/31/19 07:14 Docusate Sodium (Colace) 100 mg TID GT 02/12/19 18:00 03/12/19 08:59 03/02/19 08:25 Fentanyl Citrate 2500 mcg/Sodium Chloride 250 ml @ 0 mls/hr Q24H IV 02/23/19 20:30 03/02/19 20:29 03/02/19 04:09 Fluconazole/ Sodium Chloride 100 ml @ 100 mls/hr Q24H IV 02/26/19 18:00 03/05/19 17:59 03/01/19 18:40 Furosemide (Lasix) 40 mg DAILY IV 03/01/19 09:00 03/31/19 08:59 03/02/19 08:26 Guaifenesin (Mucinex ER) 600 mg TWICE A DAY ORAL 02/07/19 18:00 03/09/19 08:59 03/02/19 08:23 Heparin Sodium (Porcine) (Heparin 5000 units/ml) 5,000 units EVERY 12 HOURS SUBQ 02/26/19 21:00 03/28/19 20:59 02/28/19 21:05 Hydralazine HCl (Apresoline) 10 mg Q4H PRN IV bp over 165 syst 02/17/19 10:15 03/19/19 10:14 02/19/19 14:45 Hydralazine HCl (Apresoline) 50 mg Q8HR NG 02/22/19 14:00 03/21/19 21:59 03/02/19 14:20 Insulin Aspart (NovoLOG) EVERY 6 HOURS SUBQ 02/26/19 12:00 03/28/19 11:59 03/02/19 11:51 Insulin Detemir (Levemir) 6 units Q12HR SUBQ 03/02/19 21:00 04/01/19 20:59 Isosorbide Dinitrate (Isordil) 20 mg Q6HR NG 02/22/19 12:00 03/15/19 12:59 03/02/19 06:27 Lorazepam (Ativan 2mg/ml 1ml) 2 mg Q2H PRN IV For Anxiety 02/27/19 13:48 03/06/19 13:47 03/02/19 08:43 Metoclopramide HCl (Reglan) 5 mg Q8H IVP 02/26/19 09:00 03/28/19 08:59 03/02/19 08:26 Metolazone (Zaroxolyn) 10 mg DAILY NG 02/19/19 10:00 03/21/19 09:59 03/02/19 08:23 Metoprolol Tartrate (Lopressor) 100 mg Q12HR ORAL 02/22/19 21:00 03/08/19 20:59 03/02/19 08:22 Midazolam HCl (Versed 2mg/2ml vial) 1 mg Q2H PRN IVP Agitation 02/13/19 08:45 03/15/19 08:44 02/27/19 11:05 Neomycin/ Polymyxin/ Dexamethasone (Maxitrol Opth Oint) 1 applic BEDTIME BOTH EYES 02/18/19 21:00 03/20/19 20:59 03/01/19 20:46 Nitroglycerin (Ntg) 0.4 mg Q5M PRN SL Prn Chest Pain 02/07/19 11:00 03/08/19 17:29 02/08/19 07:42 Ondansetron HCl (Zofran) 4 mg Q6H PRN IVP Nausea & Vomiting 02/07/19 11:15 03/08/19 11:14 02/09/19 00:58 Pantoprazole (Protonix) 40 mg DAILY IVP 02/26/19 09:00 03/24/19 20:59 03/02/19 08:25 Patient Own Medication (Patient's Own Med) 1 ea BID ORAL 02/07/19 18:00 03/09/19 17:59 03/02/19 09:38 Patient Own Medication (Patient's Own Med) 1 ea Q48H ORAL 02/18/19 09:00 03/20/19 08:59 03/02/19 09:38 Patient Own Medication (Patient's Own Med) 2 ea DAILY ORAL 02/08/19 09:00 03/10/19 08:59 03/02/19 09:38 Polyethylene Glycol (Miralax) 17 gm BEDTIME ORAL 02/08/19 21:00 03/10/19 20:59 03/01/19 20:44 Primaquine Phosphate (Primaquine) 26.3 mg DAILY ORAL 02/28/19 09:00 03/30/19 08:59 03/02/19 08:23 Sennosides (Senokot) 8.6 mg DAILY ORAL 02/13/19 12:00 03/15/19 11:59 03/02/19 08:23 Russ Tony MD Mar 02, 2019 16:38
--- NOTE | 2019-03-02 16:45 | Operative Note - Dictated ---
DATE OF OPERATION: 03/02/2019 PREOPERATIVE DIAGNOSIS: Respiratory insufficiency, requiring prolonged ventilatory support. POSTOPERATIVE DIAGNOSIS: Respiratory insufficiency, requiring prolonged ventilatory support. OPERATION PERFORMED: Tracheostomy. ATTENDING SURGEON: Moiz Costa M.D. SHAREBROKER: None. ANESTHESIOLOGIST: Clint Petersen M.D. ANESTHESIA: General GUNNER'S MATE. ESTIMATED BLOOD LOSS: Minimal. IV FLUIDS: Please see anesthesia records. COMPLICATIONS: None. DRAINS: None. COUNTS: Sponge and needle count correct x2. WOUND CLASSIFICATION: Class I. INDICATIONS FOR PROCEDURE: This is a 58-year-old male currently admitted to the [facility] in the intensive care unit undergoing care, who has been in respiratory failure and compromised for some time now on ventilatory support. Trial of extubation was performed prior and the patient failed requiring re-intubation. Since the patient has not been able to be weaned off the ventilator and continues to require ventilatory support. Given these findings and the likelihood for requiring vent support for significant period of time, tracheostomy was indicated and recommended. Unfortunately, the patient does not have a power of assistant county attorney and is currently unrepresented. He does have a mother who does have severe dementia and is unable to consent. Given this, multidisciplinary team discussion was had and recommendations were made for tracheostomy, which was indicated and recommended. Procedure is medically necessary as the patient is Full Code young and seemingly to have potential recovery, but does require ventilatory support. OPERATIVE NOTE: The patient was taken to the operating room and placed in the hospital bed in supine position with all bony prominences well padded. SCDs were placed. Prior to entering the operating room, the patient already had an ET tube in place. A shoulder roll was placed. Preoperative time-out taken to identify the patient, procedure, operative staff, and surgical staff. The neck was hyperextended and prepped and draped in standard surgical fashion. Anatomical landmarks were identified. Local anesthetic was infiltrated in the proposed skin incision approximately two fingerbreadths above the sternal notch. Skin incision was made using a fresh #15 scalpel and carried down through subcutaneous tissue and platysma at the median raphe using electrocautery. The median raphe was divided and the strap muscles were retracted laterally. The tracheal notch was identified and the first and second tracheal rings were palpated. A tracheal hook was placed and the first and second tracheal rings were identified and visualized without obstruction. At this time, a window was made in the trachea through the first and second tracheal rings and the ET tube was identified with the assistance of the anesthesiologist. The ET tube was withdrawn and once above the area of the window, 8-Yi Shiley tracheostomy tube was inserted under direct visualization without complication. The tracheostomy balloon was insufflated and the patient was ventilated through the tracheostomy with good end-tidal CO2 and tidal volumes. The wound was irrigated and cleansed. local anesthetic was infiltrated and the skin incision reapproximated using 2-0 Monocryl sutures. Trach tie and dressings were applied. The patient tolerated the procedure well, was taken directly back to the intensive care unit in stable condition. Moiz Costa M.D. DR: CARI JOB#: [id number] CC: GEOFF
--- NOTE | 2019-03-02 17:30 | NUR ---
NURSE NOTES: Fentanyl drip has been titrated up to 250mcg/hour to maintain RASS score of -2 light sedation. VS stable. Oral care done. Pt was repositioned.
--- NOTE | 2019-03-02 18:00 | NUR ---
NURSE NOTES: PICC line dressing was changed.
[2019-03-02 18:49] LABS: HEMATOCRIT 25.1 % (42.0-52.0); HEMOGLOBIN 8.1 G/DL (14.2-18.0); MEAN CORPUSCULAR VOLUME 88 FL (80-99); PLATELET COUNT 94 K/UL (150-450); RED BLOOD COUNT 2.84 M/UL (4.70-6.10); RED CELL DISTRIBUTION WIDTH 16.1 % (11.6-14.8); WHITE BLOOD COUNT 3.4 K/UL (4.8-10.8)
--- NOTE | 2019-03-02 18:50 | NUR ---
NURSE NOTES: VS stable. Fentanyl drip maintained at 250mcg/hr to maintain RASS score of -2 light sedation. Blood drawn from PICC as ordered for CBC, BMP. Lab for called for blood specimen pick-up and was informed by dental laboratory technician that lab was already drawn peripherally 30minutes prior. Per lab coordinator, ok to send down extra blood-specimen for possible add-on lab-orders.
[2019-03-02 19:05] LABS: ALANINE AMINOTRANSFERASE 66 U/L (12-78); ALBUMIN 2.2 G/DL (3.4-5.0); ALBUMIN/GLOBULIN RATIO 0.8 (1.0-2.7); ALKALINE PHOSPHATASE 114 U/L (46-116); ANION GAP 9 mmol/L (5-15); ASPARTATE AMINO TRANSFERASE 69 U/L (15-37); BILIRUBIN,TOTAL 0.5 MG/DL (0.2-1.0); BLOOD UREA NITROGEN 47 mg/dL (7-18); CALCIUM 8.5 MG/DL (8.5-10.1); CARBON DIOXIDE 26 MMOL/L (21-32); CHLORIDE 104 MMOL/L (98-107); POTASSIUM 3.4 MMOL/L (3.5-5.1); SODIUM 139 MMOL/L (136-145)
--- NOTE | 2019-03-02 19:15 | NUR ---
NURSE NOTES: Received report from TESSA Duval. Patient is sedated with fentanyl drip 250mcg/hr, RASS -2. SR HR 80s on monitor. Trach intact and clean, Shiley 8.0 with vent setting AC 24, VT 550, FiO2 40% and Peep 5. Left NG tube intact and running with Nepro 1.8 43ml/hr. Simon intact and graining by gravity. Rectal tube intact and graining. Right upper arm PICC line intact and clean. No acute distress noted. No restlessness noted. Kept HOB>30. Call-light placed in easy reach. Will continue plan of care.
--- NOTE | 2019-03-02 19:36 | NUR ---
HAND-OFF: Report given to Gildardo ZARATE. VS stable. Endorsed plan of care.
--- NOTE | 2019-03-02 19:38 | NUR ---
RESPIRATORY NOTE: Received pt. on current AC vent settings with cuffed shiley [address] Pt is currently stable at this time. Vent alarms on and audible, ambu bag at bedside. Will continue to monitor.
--- NOTE | 2019-03-02 20:10 | NUR ---
NURSE NOTES: Informed Dr. Douglas regarding K level 3.4 and new orders carried out.
--- NOTE | 2019-03-02 20:16 | General Progress Note ---
Assessment/Plan Status: stable Assessment/Plan: 58 y Male admitted to the hospital due to fever, shortness of breath and chest pain. # Multilobar pneumonia in patient with HIV - Broad sp atbx started. Continue Zosyn, Vancomycin, Azithromycin, TM-SMX - Fluconazole per ID - Droplet precaution - Flu swab ordered. - Oxygen support, ventilatory support as not able to wean off ventilator due to agitation. Consider change of sedation agent from Fentanyl to Versed if indicated. - ID consult appreciated. Discussed today and monitor renal function as possibly change in creatinine due to TM-SMX -s/p PICC line, # Hypoxemic respiratory failure - Critical care follow up. Unable to wean off the ventilatior. - - Plan for tracheostomy today -Pt has no family to consent. Tracheostomy is urgent for the patient, two physician signed consent # Chest pain - EKG with bifascicular block RBB and LAFB, no ST changes. - Trend troponin x3 completed - ECHO completed with no WMA and preserved EF. Dr. Francois consulted. Consideration for outpatient cath vs possibly myocarditis due to underlying viral infection. No evidence of Takotsubo per TTE. - NGT prn - Pain control with morphine # HIV - Continue HARRT - VL is undetectable per patient report. T cell count > 400 - CD 4 count 191 # HTN - Resume home medication - Clonidine, Isordil added today. 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 - plan to remove femoral access after PICC placement - Lasix 40 IV x 1 today -monitor renal fct and fluid status DVT and GI ppx Full code A total of 35 mins of critical care time was spent on this patient, dealing with hypoxemic resp failure requiring continuous mechanical ventilation, reviewing telemetry data, discussion with bedside ADULT BASIC EDUCATION INSTRUCTOR Subjective Allergies: Coded Allergies: No Known Allergies (Unverified , 02/05/13) Subjective Pt remains intubated and sedated, no acute overnight events, Plan for trach today Objective Last 24 Hour Vital Signs Date Time Temp Pulse Resp B/P (MAP) Pulse Ox O2 Delivery O2 Flow Rate FiO2 03/02/19 19:20 78 30 98 Mechanical Ventilator 50 03/02/19 19:05 82 26 98 Mechanical Ventilator 50 03/02/19 19:01 81 25 50 03/02/19 19:00 24 Mechanical Ventilator 40 03/02/19 19:00 80 23 155/58 (90) 98 03/02/19 18:10 97.6 03/02/19 18:00 81 25 150/56 (87) 99 03/02/19 18:00 24 Mechanical Ventilator 40 03/02/19 17:40 24 Mechanical Ventilator 40 03/02/19 17:06 80 24 50 03/02/19 17:01 24 Mechanical Ventilator 40 03/02/19 17:00 79 25 139/79 (99) 98 03/02/19 16:00 50 03/02/19 16:00 76 03/02/19 16:00 24 Mechanical Ventilator 40 03/02/19 16:00 Mechanical Ventilator Mechanical Ventilator 03/02/19 16:00 98.4 77 26 144/61 (88) 99 03/02/19 15:00 75 24 142/51 (81) 98 03/02/19 15:00 22 Mechanical Ventilator 40 03/02/19 14:58 76 25 50 03/02/19 14:20 153/59 03/02/19 14:00 24 Mechanical Ventilator 40 03/02/19 14:00 76 24 153/59 (90) 97 03/02/19 13:47 71 24 97 Mechanical Ventilator 40 03/02/19 13:39 70 25 40 03/02/19 13:38 70 24 98 Mechanical Ventilator 40 03/02/19 13:05 72 18 99 03/02/19 13:00 98.6 72 135/50 (78) 03/02/19 13:00 24 Mechanical Ventilator 40 03/02/19 12:00 40 03/02/19 12:00 Mechanical Ventilator Mechanical Ventilator 03/02/19 12:00 24 Mechanical Ventilator 40 03/02/19 12:00 69 03/02/19 11:00 72 21 147/62 (90) 99 03/02/19 11:00 69 29 40 03/02/19 11:00 24 Mechanical Ventilator 40 03/02/19 10:00 71 15 128/54 (78) 98 03/02/19 10:00 24 Mechanical Ventilator 40 03/02/19 09:30 71 14 125/49 (74) 97 03/02/19 09:12 78 24 40 03/02/19 09:00 86 21 129/57 (81) 99 03/02/19 09:00 24 Mechanical Ventilator 40 03/02/19 08:34 139/54 03/02/19 08:30 99 20 141/96 (111) 94 03/02/19 08:22 84 139/54 03/02/19 08:22 84 139/54 03/02/19 08:00 79 03/02/19 08:00 24 Mechanical Ventilator 40 03/02/19 08:00 Mechanical Ventilator Mechanical Ventilator 03/02/19 08:00 98.9 82 23 139/54 (82) 98 03/02/19 08:00 40 03/02/19 07:20 78 24 98 Mechanical Ventilator 40 03/02/19 07:10 81 24 99 Mechanical Ventilator 40 03/02/19 07:00 75 18 128/52 (77) 98 03/02/19 07:00 24 Mechanical Ventilator 40 03/02/19 06:56 75 26 40 03/02/19 06:30 77 16 141/56 (84) 98 03/02/19 06:27 143/56 03/02/19 06:27 143/56 03/02/19 06:00 98.5 78 19 143/56 (85) 98 03/02/19 05:30 77 18 148/56 (86) 98 03/02/19 05:00 18 Mechanical Ventilator 03/02/19 05:00 77 19 147/67 (93) 98 03/02/19 04:51 79 25 40 03/02/19 04:30 73 15 133/51 (78) 99 03/02/19 04:09 17 Mechanical Ventilator 03/02/19 04:00 Mechanical Ventilator Mechanical Ventilator 03/02/19 04:00 40 03/02/19 04:00 18 Mechanical Ventilator 03/02/19 04:00 76 03/02/19 04:00 76 15 133/61 (85) 99 03/02/19 03:30 83 18 169/65 (99) 98 03/02/19 03:00 73 11 139/59 (85) 98 03/02/19 03:00 18 Mechanical Ventilator 03/02/19 02:32 73 24 40 03/02/19 02:30 73 11 139/59 (85) 98 03/02/19 02:00 20 Mechanical Ventilator 03/02/19 02:00 76 13 143/65 (91) 98 03/02/19 01:30 85 21 156/70 (98) 96 03/02/19 01:25 76 27 99 Mechanical Ventilator 40 03/02/19 01:14 79 27 99 Mechanical Ventilator 40 03/02/19 01:12 80 25 40 03/02/19 01:00 18 Mechanical Ventilator 03/02/19 01:00 83 18 156/70 (98) 97 03/02/19 00:30 80 12 151/59 (89) 97 03/02/19 00:28 158/64 03/02/19 00:00 Mechanical Ventilator Mechanical Ventilator 03/02/19 00:00 76 03/02/19 00:00 80 15 158/64 (95) 97 03/02/19 00:00 20 Mechanical Ventilator 03/01/19 23:30 81 22 159/59 (92) 98 03/01/19 23:10 81 24 40 03/01/19 23:00 20 Mechanical Ventilator 03/01/19 23:00 80 17 157/71 (99) 97 03/01/19 22:43 154/59 03/01/19 22:30 78 19 154/59 (90) 97 03/01/19 22:00 78 19 158/58 (91) 97 03/01/19 22:00 20 Mechanical Ventilator 03/01/19 21:22 162/72 03/01/19 21:10 81 25 40 03/01/19 21:00 17 Mechanical Ventilator 03/01/19 21:00 91 21 157/58 (91) 94 03/01/19 20:44 92 157/65 03/01/19 20:30 92 21 157/65 (95) 96 Intake and Output 03/01/19 03/02/19 19:00 07:00 Intake Total 1015.5 ml 637 ml Output Total 1825 ml 1200 ml Balance -809.5 ml -563 ml Free Water 120 ml 90 ml IV Total 422.5 ml 375 ml Tube Feeding 473 ml 172 ml Output Urine Total 1785 ml 1200 ml Stool Total 40 ml Laboratory Tests 03/02/19 05:01: White Blood Count 3.5L, Red Blood Count 2.78L, Hemoglobin 7.9L, Hematocrit 24.3L , Mean Corpuscular Volume 87, Mean Corpuscular Hemoglobin 28.4, Mean Corpuscular Hemoglobin Concent 32.5, Red Cell Distribution Width 16.8H, Platelet Count 100L, Mean Platelet Volume 5.8L, Neutrophils (%) (Auto) , Lymphocytes (%) (Auto) , Monocytes (%) (Auto) , Eosinophils (%) (Auto) , Basophils (%) (Auto) , Differential Total Cells Counted 100, Neutrophils % ( Manual) 78H, Lymphocytes % (Manual) 13L, Monocytes % (Manual) 8, Eosinophils % ( Manual) 1, Basophils % (Manual) 0, Band Neutrophils 0, Platelet Estimate DecreasedL, Platelet Morphology Normal, Anisocytosis 1+, Prothrombin Time 11.7H , Prothromb Time International Ratio 1.1, Activated Partial Thromboplast Time 34H, Sodium Level 139, Potassium Level 3.1L, Chloride Level 105, Carbon Dioxide Level 25, Anion Gap 9, Blood Urea Nitrogen 56H, Creatinine 2.3H, Estimat Glomerular Filtration Rate 29.2, Glucose Level 192H, Calcium Level 8.9, Phosphorus Level 2.7, Magnesium Level 2.2 03/02/19 17:50: White Blood Count 3.4L, Red Blood Count 2.84L, Hemoglobin 8.1L, Hematocrit 25.1L , Mean Corpuscular Volume 88, Mean Corpuscular Hemoglobin 28.5, Mean Corpuscular Hemoglobin Concent 32.3, Red Cell Distribution Width 16.1H, Platelet Count 94L, Mean Platelet Volume 6.2L, Neutrophils (%) (Auto) , Lymphocytes (%) (Auto) , Monocytes (%) (Auto) , Eosinophils (%) (Auto) , Basophils (%) (Auto) , Differential Total Cells Counted 100, Neutrophils % ( Manual) 73, Lymphocytes % (Manual) 15L, Monocytes % (Manual) 9, Eosinophils % ( Manual) 2, Basophils % (Manual) 1, Band Neutrophils 0, Platelet Estimate DecreasedL, Platelet Morphology Normal, Anisocytosis 1+, Sodium Level 139, Potassium Level 3.4L, Chloride Level 104, Carbon Dioxide Level 26, Anion Gap 9, Blood Urea Nitrogen 47H, Creatinine 2.0H, Estimat Glomerular Filtration Rate 34.4, Glucose Level 185H, Calcium Level 8.5, Hypochromasia 1+, Total Bilirubin 0.5, Aspartate Amino Transf (AST/SGOT) 69H, Alanine Aminotransferase (ALT/SGPT) 66, Alkaline Phosphatase 114, Total Protein 4.9L, Albumin 2.2L, Globulin 2.7, Albumin/Globulin Ratio 0.8L Height (Feet): 6 Height (Inches): 0.00 Weight (Pounds): 199 Objective General Appearance: intubated, no agitation EENT: intubated Neck: non-tender, normal alignment Cardiovascular: normal peripheral pulses, normal rate Respiratory/Chest: chest wall non-tender, lungs clear Abdomen: normal bowel sounds, non tender Extremities: normal range of motion, non-tender Edema: trace edema 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
[2019-03-02] MEDS: Miralax 17gm pkt ORAL SCH (20:22)
[2019-03-02] MEDS: Dyna-Hex 2% Top Sol 2oz TOPIC SCH (20:22)
[2019-03-02] MEDS: Maxitrol Opth Oint 3.5gm BOTH EYES SCH (20:24)
--- NOTE | 2019-03-02 22:01 | NUR ---
NURSE NOTES: Repositioned patient. Oral care provided.
[2019-03-02] MEDS: cloNIDine 0.2mg Tab NG SCH (22:11)
[2019-03-03] VITALS (45 sets, daily range): BP systolic 110–171; BP diastolic 46–125
[2019-03-03] MEDS: Metoclopramide 10mg/2ml Inj IVP SCH ×3 (00:08→18:14)
[2019-03-03] MEDS: NovoLOG Insulin Flexpen SUBQ SCH ×5 (00:09→23:37)
[2019-03-03] MEDS: fentaNYL Citrate 2,500 MCG in NS 200 ML IV SCH ×3 (00:10→14:16)
--- NOTE | 2019-03-03 00:10 | NUR ---
NURSE NOTES: Started fentanyl drip 250mcg/hr with previous bag 100ml. Will continue plan of care.
[2019-03-03] MEDS: Albuterol/Ipratropium 3ml neb HHN SCH ×3 (01:13→19:43)
[2019-03-03] MEDS: LORazepam Inj 2mg/ml 1ml IV PRN ×2 (02:46→14:15)
--- NOTE | 2019-03-03 02:47 | NUR ---
NURSE NOTES: Patient is restless, desating and unable to calm down. Ativan 2mg IVP is given as ordered. Will continue plan of care.
--- NOTE | 2019-03-03 04:30 | NUR ---
NURSE NOTES: Bed bath given. Repositioned patient. Good oral care given.
[2019-03-03] MEDS: HydrALAZINE 50mg tab NG SCH ×3 (05:21→22:12)
[2019-03-03] MEDS: Clindamycin 900mg 50 ML IV SCH (05:21)
[2019-03-03] MEDS: cloNIDine 0.2mg Tab NG SCH ×3 (05:22→22:13)
--- NOTE | 2019-03-03 06:02 | NUR ---
NURSE NOTES: Repositioned patient and provided oral care.
[2019-03-03] MEDS: Lacri-Lube Opth Oint 3.5gm BOTH EYES SCH ×4 (06:21→21:00)
--- NOTE | 2019-03-03 07:17 | NUR ---
HAND-OFF: Report given to TESSA Montanez. Endorsed plan of care.
--- NOTE | 2019-03-03 07:18 | NUR ---
NURSE NOTES: RECEIVED PATIENT FROM Brian EUCEDA RN. PATIENT IS SEEN LYING IN BED, ASLEEP. HOOKED TO CURB HOP. TRACH TO VENT. SHILEY 8, VENT SETTINGS AC 24, TV 550, FiO2 40%, PEEP 5. NO SIGNS OF DISTRESS OF THE MOMENT. NOTED L NGT WITH GTF NEPRO AT 43ML/HR. NOTED RECTAL TUBE AND GARVIN CATHETER. NOTED RESTRAINTS ON DUE TO PULLING OBJECTS. SKIN ISSUES NOTED. ON OVERLAY MATTRESS. WITH GENERALIZED EDEMA. PICC LINE ON R UA, FENTANYL DRIP RUNNING AT 250MCG/HR, FOLLOWING HOSPITAL PROTOCOL. CALL LIGHT WITHIN REACH. BED AT LOWEST POSITION. SIDE RAILS UP. WILL CONTINUE TO MONITOR.
--- NOTE | 2019-03-03 07:45 | General Progress Note ---
Assessment/Plan Status: stable Assessment/Plan: 1. History of HIV. 2. Hypertension. 3. Vertigo. 4. History of headaches. 5. History of diabetes. 6. Respiratory failure 7. Dysphagia 8. ileus stable H&H s/p trach ppi fu H&H prn blood transfusion ppi low dose reglan plan PEG for Tuesday Subjective ROS Limited/Unobtainable: No Allergies: Coded Allergies: No Known Allergies (Unverified , 02/05/13) Objective Last 24 Hour Vital Signs Date Time Temp Pulse Resp B/P (MAP) Pulse Ox O2 Delivery O2 Flow Rate FiO2 03/03/19 07:16 74 24 99 Mechanical Ventilator 40 03/03/19 07:14 74 24 40 03/03/19 07:00 20 Mechanical Ventilator 40 03/03/19 07:00 71 24 137/50 (79) 98 03/03/19 06:40 20 Mechanical Ventilator 40 03/03/19 06:00 73 26 139/46 (77) 98 03/03/19 05:40 23 Mechanical Ventilator 40 03/03/19 05:22 159/61 03/03/19 05:21 159/61 03/03/19 05:07 80 26 40 03/03/19 05:00 80 24 159/61 (93) 98 03/03/19 04:52 29 Mechanical Ventilator 40 03/03/19 04:40 24 Mechanical Ventilator 40 03/03/19 04:00 98.7 80 28 159/62 (94) 92 03/03/19 04:00 50 03/03/19 04:00 78 03/03/19 04:00 Mechanical Ventilator Mechanical Ventilator 03/03/19 03:40 22 Mechanical Ventilator 40 03/03/19 03:00 88 24 158/74 (102) 99 03/03/19 02:59 89 25 40 03/03/19 02:40 20 Mechanical Ventilator 40 03/03/19 02:00 82 24 159/61 (93) 98 03/03/19 01:40 22 Mechanical Ventilator 40 03/03/19 01:33 80 27 99 Mechanical Ventilator 40 03/03/19 01:14 81 27 98 Mechanical Ventilator 40 03/03/19 01:12 81 25 40 03/03/19 01:00 74 24 153/76 (101) 98 03/03/19 00:40 24 Trach Collar 40 03/03/19 00:10 24 Trach Collar 40 03/03/19 00:00 99.3 68 23 134/57 (82) 98 03/03/19 00:00 Mechanical Ventilator Mechanical Ventilator 03/02/19 23:01 68 24 40 03/02/19 23:00 68 24 143/55 (84) 99 03/02/19 22:11 168/61 03/02/19 22:11 168/61 03/02/19 22:00 80 23 155/58 (90) 98 03/02/19 21:01 73 24 50 03/02/19 21:00 80 23 155/58 (90) 98 03/02/19 20:22 80 146/51 03/02/19 20:00 83 03/02/19 20:00 98.7 81 25 146/51 (82) 99 03/02/19 20:00 50 03/02/19 20:00 Mechanical Ventilator Mechanical Ventilator 03/02/19 20:00 80 23 155/58 (90) 98 03/02/19 20:00 24 Endotracheal Tube 40 03/02/19 19:20 78 30 98 Mechanical Ventilator 50 03/02/19 19:05 82 26 98 Mechanical Ventilator 50 03/02/19 19:01 81 25 50 03/02/19 19:00 24 Mechanical Ventilator 40 03/02/19 19:00 80 23 155/58 (90) 98 03/02/19 18:10 97.6 03/02/19 18:00 81 25 150/56 (87) 99 03/02/19 18:00 24 Mechanical Ventilator 40 03/02/19 17:40 24 Mechanical Ventilator 40 03/02/19 17:06 80 24 50 03/02/19 17:01 24 Mechanical Ventilator 40 03/02/19 17:00 79 25 139/79 (99) 98 03/02/19 16:00 50 03/02/19 16:00 76 03/02/19 16:00 24 Mechanical Ventilator 40 03/02/19 16:00 Mechanical Ventilator Mechanical Ventilator 03/02/19 16:00 98.4 77 26 144/61 (88) 99 03/02/19 15:00 75 24 142/51 (81) 98 03/02/19 15:00 22 Mechanical Ventilator 40 03/02/19 14:58 76 25 50 03/02/19 14:20 153/59 03/02/19 14:00 24 Mechanical Ventilator 40 03/02/19 14:00 76 24 153/59 (90) 97 03/02/19 13:47 71 24 97 Mechanical Ventilator 40 03/02/19 13:39 70 25 40 03/02/19 13:38 70 24 98 Mechanical Ventilator 40 03/02/19 13:05 72 18 99 03/02/19 13:00 98.6 72 135/50 (78) 03/02/19 13:00 24 Mechanical Ventilator 40 03/02/19 12:00 40 03/02/19 12:00 Mechanical Ventilator Mechanical Ventilator 03/02/19 12:00 24 Mechanical Ventilator 40 03/02/19 12:00 69 03/02/19 11:00 72 21 147/62 (90) 99 03/02/19 11:00 69 29 40 03/02/19 11:00 24 Mechanical Ventilator 40 03/02/19 10:00 71 15 128/54 (78) 98 03/02/19 10:00 24 Mechanical Ventilator 40 03/02/19 09:30 71 14 125/49 (74) 97 03/02/19 09:12 78 24 40 03/02/19 09:00 86 21 129/57 (81) 99 03/02/19 09:00 24 Mechanical Ventilator 40 03/02/19 08:34 139/54 03/02/19 08:30 99 20 141/96 (111) 94 03/02/19 08:22 84 139/54 03/02/19 08:22 84 139/54 03/02/19 08:00 79 03/02/19 08:00 24 Mechanical Ventilator 40 03/02/19 08:00 Mechanical Ventilator Mechanical Ventilator 03/02/19 08:00 98.9 82 23 139/54 (82) 98 03/02/19 08:00 40 Intake and Output 03/02/19 03/03/19 18:59 06:59 Intake Total 1077 ml 1028.5 ml Output Total 1970 ml 1775 ml Balance -893 ml -746.5 ml IV Total 905 ml 512.5 ml Tube Feeding 172 ml 516 ml Output Urine Total 1970 ml 1775 ml Laboratory Tests 03/02/19 17:50: White Blood Count 3.4L, Red Blood Count 2.84L, Hemoglobin 8.1L, Hematocrit 25.1L , Mean Corpuscular Volume 88, Mean Corpuscular Hemoglobin 28.5, Mean Corpuscular Hemoglobin Concent 32.3, Red Cell Distribution Width 16.1H, Platelet Count 94L, Mean Platelet Volume 6.2L, Neutrophils (%) (Auto) , Lymphocytes (%) (Auto) , Monocytes (%) (Auto) , Eosinophils (%) (Auto) , Basophils (%) (Auto) , Differential Total Cells Counted 100, Neutrophils % ( Manual) 73, Lymphocytes % (Manual) 15L, Monocytes % (Manual) 9, Eosinophils % ( Manual) 2, Basophils % (Manual) 1, Band Neutrophils 0, Platelet Estimate DecreasedL, Platelet Morphology Normal, Hypochromasia 1+, Anisocytosis 1+, Sodium Level 139, Potassium Level 3.4L, Chloride Level 104, Carbon Dioxide Level 26, Anion Gap 9, Blood Urea Nitrogen 47H, Creatinine 2.0H, Estimat Glomerular Filtration Rate 34.4, Glucose Level 185H, Calcium Level 8.5, Total Bilirubin 0.5, Aspartate Amino Transf (AST/SGOT) 69H, Alanine Aminotransferase ( ALT/SGPT) 66, Alkaline Phosphatase 114, Total Protein 4.9L, Albumin 2.2L, Globulin 2.7, Albumin/Globulin Ratio 0.8L Height (Feet): 6 Height (Inches): 0.00 Weight (Pounds): 251 General Appearance: no apparent distress EENT: normal ENT inspection Neck: supple Cardiovascular: normal rate Respiratory/Chest: decreased breath sounds Abdomen: normal bowel sounds, non tender, soft Extremities: non-tender Kg Ricketts MD Mar 03, 2019 07:45
--- NOTE | 2019-03-03 07:52 | NUR ---
NURSE NOTES: SEEN AND EXAMINED BY DR AUGUST. WILL CONTINUE TO MONITOR.
[2019-03-03] MEDS: ETRAVIRINE 200 MG ORAL SCH (08:39)
[2019-03-03] MEDS: Primaquine 26.3mg(=15mg base) Tab ORAL SCH (08:39)
[2019-03-03] MEDS: RALTEGRAVIR 400 MG ORAL SCH ×2 (08:39→18:15)
[2019-03-03] MEDS: Docusate 100mg/10ml Liq GT SCH ×3 (08:40→18:14)
[2019-03-03] MEDS: Sennosides 8.6mg tab ORAL SCH (08:41)
[2019-03-03] MEDS: Pantoprazole Inj IVP SCH (08:42)
[2019-03-03] MEDS: guaiFENesin ER 600mg tab ORAL SCH ×2 (08:42→18:14)
[2019-03-03] MEDS: Heparin 5000 units/ml inj SUBQ SCH ×2 (08:43→21:02)
[2019-03-03] MEDS ORDERED: NS 275ml ONE (09:02)
[2019-03-03] MEDS ORDERED: Tubing IV Secondary IV ONE ×2 (09:02)
[2019-03-03] MEDS: Levemir Flexpen SUBQ SCH (09:04)
--- NOTE | 2019-03-03 09:23 | NUR ---
RADIOLOGY DEPT., CHEST X-RAY DONE.-P.DYE
--- NOTE | 2019-03-03 09:35 | NUR ---
NURSE NOTES: SEEN AND EXAMINED BY DR CAMPOS. WILL CONTINUE TO MONITOR.
[2019-03-03 10:04] LABS: ANION GAP 5 mmol/L (5-15); BLOOD UREA NITROGEN 43 mg/dL (7-18); CALCIUM 8.8 MG/DL (8.5-10.1); CARBON DIOXIDE 28 MMOL/L (21-32); CHLORIDE 107 MMOL/L (98-107); CREATININE 1.8 MG/DL (0.55-1.30); POTASSIUM 3.9 MMOL/L (3.5-5.1); SODIUM 140 MMOL/L (136-145)
--- NOTE | 2019-03-03 10:05 | NUR ---
NURSE NOTES: SEEN AND DR PENA. STILL ON FENATNYL DRIP FOLLOWING HOSPITAL PROTOCOL. WILL CONTINUE TO MONITOR.
[2019-03-03 10:10] LABS: HEMATOCRIT 24.9 % (42.0-52.0); HEMOGLOBIN 8.4 G/DL (14.2-18.0); MEAN CORPUSCULAR VOLUME 87 FL (80-99); PLATELET COUNT 106 K/UL (150-450); RED BLOOD COUNT 2.87 M/UL (4.70-6.10); RED CELL DISTRIBUTION WIDTH 16.9 % (11.6-14.8); WHITE BLOOD COUNT 3.1 K/UL (4.8-10.8)
--- NOTE | 2019-03-03 10:21 | Hematology/Onc Progress Note ---
Assessment/Plan Assessment/Plan ASSESSMENT AND RECOMMENDATIONS # Pancytopenia with all three cell lines have, decreasing counts could also be due to underlying hiv meds, sepsis as well as HIV --> Anemia workup has been reviewed. Ferritin 182 --> Hep panel pending and HIV confirmed positive --> No evidence of hemolysis is noted, peripheral smear has been reviewed. --> Hgb goal >7. Transfuse prn. --> Epogen or iron at this time is not particularly indicated --> Medications have been reviewed --> Stool OB negative --> Blood tx: 1 unit on 02/10/19, --> off ASA, off heparin, off lovenox --> Hgb trend: 7.6-->8.2-->9.4-->8.4-->8.2 -->8.9-->10.3->7.9-->8.1->7.8-->8.7-- >8.4-->8.1-->7.9 --> WBC 5-->4-->3.2-->3.1 --> Plt trend: 153-->257-->224-->205-->253-->310-->201->177-->115-->104-->100--> 106 --> Transfuse if Plt < 20k and fever, or if Plt < 10k without fever --> WILLIAM screen negative # Multilobar pneumonia in patient with HIV. Recs per ID. --> Broad sp atbx started. Continue on abx as per id --> Droplet precaution # Hypoxemic respiratory failure. s/p trach --> Bipap as needed, transition to O2 via NC when able --> Due to pneumonia, on abx --> pulm recs reviewed # Chest pain. 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 --> Trend troponin x3 --> NGT prn # HIV. --> Continue HARRT --> VL is undetectable per patient report. # HTN --> Resume home medication # DVT and GI ppx The time the note is entered does not reflect the time the patient was examined. I greatly appreciate the consultation. Subjective Constitutional: Denies: no symptoms, chills, fever, malaise, weakness, other HEENT: Denies: no symptoms, eye pain, blurred vision, tearing, double vision, ear pain, ear discharge, nose pain, nose congestion, throat pain, throat swelling, mouth pain, mouth swelling, other Neurologic/Psychiatric: Denies: no symptoms, anxiety, depressed, emotional problems, headache, numbness, paresthesia, pre-existing deficit, seizure, tingling, tremors, weakness, other Endocrine: Denies: no symptoms, excessive sweating, flushing, intolerance to cold, intolerance to heat, increased hunger, increased thirst, increased urine, unexplained weight gain, unexplained weight loss, other Allergies: Coded Allergies: No Known Allergies (Unverified , 02/05/13) Subjective Subjective 02/11: Hgb yesterday was 7.6, s/p 1 unit prbc. Current hgb at 8.2. Pt attempted to pull out tubes per nursing team, soft restraints applied. 02/13: Pt in ICU and intubated. Pt currently sedated. Current hgb 9.4. 02/14: Pt remains in icu, sedated. Hgb stable. 02/15: Remains in icu, lethargic. No acute events. Hgb stable. 02/16: Remains in icu. CXR today shows worsening CHF/pulmonary edema. Pt wake and sedation decrease for weaning. 02/18: Remains in icu. Pt on vent. CXR today shows pulmonary edema, persistent small left pleural effusion. 02/19: Remains in the icu, now extubated, seen by pulm, labs reviewed 02/20: Remains in ICU, Pt intubated, CXR today shows Congestive heart failure with interval worsening 02/21: reintubated, tolerating vent well, seen by pulm/cc 02/23: pt remains on fently gtt, prn ativan, currenlty intubated on vent, no further bleeding, d/w RN> 02/24:failed weaning, fentanyl drip decreased. 02/25:pt seen in am,sedated. 02/27: remains intubated, may need trach, nobleeding today 02/28: tolerated cpap, now back on vent, no bleeding off asa/lovenox 03/01: fentanyl gtt is now off, remains in icu, dw rn 03/02: to get trach today, at approx 12, no events, labs somewhat lower 03/03: still confused on exam, d/w rn, no events, on fentanyl gtt Objective Objective Current Medications Medications (Trade) Dose Ordered Sig/Marquis Route PRN Reason Start Time Stop Time Status Last Admin Dose Admin Acetaminophen (Tylenol) 650 mg Q4H PRN ORAL Mild Pain (Pain Scale 1-3) 02/07/19 11:15 03/08/19 17:29 03/03/19 08:53 Acetaminophen/ Butalbital/ Caffeine (Fioricet) 1 tab Q8H PRN ORAL For Headache 02/08/19 17:15 03/10/19 17:14 Albuterol/ Ipratropium (Albuterol/ Ipratropium) 3 ml Q4H PRN HHN Shortness of Breath 02/26/19 12:30 03/03/19 12:29 Albuterol/ Ipratropium (Albuterol/ Ipratropium) 3 ml Q6HRT HHN 02/26/19 13:00 03/03/19 12:59 03/03/19 07:16 Amlodipine Besylate (Norvasc) 10 mg DAILY NG 02/15/19 09:00 03/14/19 15:59 03/03/19 08:41 Artificial Tears (Lacri-Lube) 1 applic AC+HS BOTH EYES 02/18/19 06:30 03/20/19 06:29 03/03/19 06:21 Bisacodyl (Dulcolax) 5 mg DAILYPRN PRN ORAL Constipation 02/08/19 17:15 03/10/19 17:14 02/25/19 12:45 Cefepime HCl 2 gm/ Dextrose 110 ml @ 220 mls/hr Q24H IV 03/02/19 16:00 03/09/19 15:59 03/02/19 17:01 Chlorhexidine Gluconate (Jessy-Hex 2%) 1 applic DAILY@2000 TOPIC 02/25/19 20:00 03/27/19 19:59 03/02/19 20:22 Clindamycin HCl/ Dextrose 50 ml @ 100 mls/hr Q8HR IV 02/27/19 22:00 03/06/19 21:59 03/03/19 05:21 Clonidine HCl (Catapres tab) 0.2 mg EVERY 8 HOURS NG 03/02/19 22:00 03/19/19 13:59 03/03/19 05:22 Dextrose (Dextrose 50%) 25 ml Q30M PRN IV Hypoglycemia 03/01/19 07:15 03/31/19 07:14 Dextrose (Dextrose 50%) 50 ml Q30M PRN IV Hypoglycemia 03/01/19 07:15 03/31/19 07:14 Docusate Sodium (Colace) 100 mg TID GT 02/12/19 18:00 03/12/19 08:59 03/03/19 08:40 Fentanyl Citrate 2500 mcg/Sodium Chloride 250 ml @ 0 mls/hr Q24H IV 03/03/19 00:00 03/10/19 00:00 03/03/19 04:52 Fluconazole/ Sodium Chloride 100 ml @ 100 mls/hr Q24H IV 02/26/19 18:00 03/05/19 17:59 03/02/19 17:02 Furosemide (Lasix) 40 mg DAILY IV 03/01/19 09:00 03/31/19 08:59 03/03/19 08:42 Guaifenesin (Mucinex ER) 600 mg TWICE A DAY ORAL 02/07/19 18:00 03/09/19 08:59 03/03/19 08:42 Heparin Sodium (Porcine) (Heparin 5000 units/ml) 5,000 units EVERY 12 HOURS SUBQ 02/26/19 21:00 03/28/19 20:59 02/28/19 21:05 Hydralazine HCl (Apresoline) 10 mg Q4H PRN IV bp over 165 syst 02/17/19 10:15 03/19/19 10:14 02/19/19 14:45 Hydralazine HCl (Apresoline) 50 mg Q8HR NG 02/22/19 14:00 03/21/19 21:59 03/03/19 05:21 Insulin Aspart (NovoLOG) EVERY 6 HOURS SUBQ 02/26/19 12:00 03/28/19 11:59 03/03/19 05:23 Insulin Detemir (Levemir) 6 units Q12HR SUBQ 03/02/19 21:00 04/01/19 20:59 03/03/19 09:04 Lorazepam (Ativan 2mg/ml 1ml) 2 mg Q2H PRN IV For Anxiety 02/27/19 13:48 03/06/19 13:47 03/03/19 02:46 Metoclopramide HCl (Reglan) 5 mg Q8H IVP 02/26/19 09:00 03/28/19 08:59 03/03/19 08:43 Metolazone (Zaroxolyn) 10 mg DAILY NG 02/19/19 10:00 03/21/19 09:59 03/03/19 08:40 Metoprolol Tartrate (Lopressor) 100 mg Q12HR ORAL 02/22/19 21:00 03/08/19 20:59 03/03/19 08:42 Midazolam HCl (Versed 2mg/2ml vial) 1 mg Q2H PRN IVP Agitation 02/13/19 08:45 03/15/19 08:44 02/27/19 11:05 Neomycin/ Polymyxin/ Dexamethasone (Maxitrol Opth Oint) 1 applic BEDTIME BOTH EYES 02/18/19 21:00 03/20/19 20:59 03/02/19 20:24 Nitroglycerin (Ntg) 0.4 mg Q5M PRN SL Prn Chest Pain 02/07/19 11:00 03/08/19 17:29 02/08/19 07:42 Ondansetron HCl (Zofran) 4 mg Q6H PRN IVP Nausea & Vomiting 02/07/19 11:15 03/08/19 11:14 02/09/19 00:58 Pantoprazole (Protonix) 40 mg DAILY IVP 02/26/19 09:00 03/24/19 20:59 03/03/19 08:42 Patient Own Medication (Patient's Own Med) 1 ea BID ORAL 02/07/19 18:00 03/09/19 17:59 03/03/19 08:39 Patient Own Medication (Patient's Own Med) 1 ea Q48H ORAL 02/18/19 09:00 03/20/19 08:59 03/02/19 09:38 Patient Own Medication (Patient's Own Med) 2 ea DAILY ORAL 02/08/19 09:00 03/10/19 08:59 03/03/19 08:39 Polyethylene Glycol (Miralax) 17 gm BEDTIME ORAL 02/08/19 21:00 03/10/19 20:59 03/02/19 20:22 Primaquine Phosphate (Primaquine) 26.3 mg DAILY ORAL 02/28/19 09:00 03/30/19 08:59 03/03/19 08:39 Sennosides (Senokot) 8.6 mg DAILY ORAL 02/13/19 12:00 03/15/19 11:59 03/03/19 08:41 Last 24 Hour Vital Signs Date Time Temp Pulse Resp B/P (MAP) Pulse Ox O2 Delivery O2 Flow Rate FiO2 03/03/19 09:04 77 26 40 03/03/19 09:00 88 24 153/59 (90) 94 03/03/19 08:42 74 137/50 03/03/19 08:41 98 137/50 03/03/19 08:00 40 03/03/19 08:00 101.0 97 23 137/50 (79) 96 03/03/19 07:34 84 26 99 Mechanical Ventilator 40 03/03/19 07:16 74 24 99 Mechanical Ventilator 40 03/03/19 07:14 74 24 40 03/03/19 07:00 20 Mechanical Ventilator 40 03/03/19 07:00 71 24 137/50 (79) 98 03/03/19 06:40 20 Mechanical Ventilator 40 03/03/19 06:00 73 26 139/46 (77) 98 03/03/19 05:40 23 Mechanical Ventilator 40 03/03/19 05:22 159/61 03/03/19 05:21 159/61 03/03/19 05:07 80 26 40 03/03/19 05:00 80 24 159/61 (93) 98 03/03/19 04:52 29 Mechanical Ventilator 40 03/03/19 04:40 24 Mechanical Ventilator 40 03/03/19 04:00 98.7 80 28 159/62 (94) 92 03/03/19 04:00 50 03/03/19 04:00 78 03/03/19 04:00 Mechanical Ventilator Mechanical Ventilator 03/03/19 03:40 22 Mechanical Ventilator 40 03/03/19 03:00 88 24 158/74 (102) 99 03/03/19 02:59 89 25 40 03/03/19 02:40 20 Mechanical Ventilator 40 03/03/19 02:00 82 24 159/61 (93) 98 03/03/19 01:40 22 Mechanical Ventilator 40 03/03/19 01:33 80 27 99 Mechanical Ventilator 40 03/03/19 01:14 81 27 98 Mechanical Ventilator 40 03/03/19 01:12 81 25 40 03/03/19 01:00 74 24 153/76 (101) 98 03/03/19 00:40 24 Trach Collar 40 03/03/19 00:10 24 Trach Collar 40 03/03/19 00:00 99.3 68 23 134/57 (82) 98 03/03/19 00:00 Mechanical Ventilator Mechanical Ventilator 03/02/19 23:01 68 24 40 03/02/19 23:00 68 24 143/55 (84) 99 03/02/19 22:11 168/61 03/02/19 22:11 168/61 03/02/19 22:00 80 23 155/58 (90) 98 03/02/19 21:01 73 24 50 03/02/19 21:00 80 23 155/58 (90) 98 03/02/19 20:22 80 146/51 03/02/19 20:00 83 03/02/19 20:00 98.7 81 25 146/51 (82) 99 03/02/19 20:00 50 03/02/19 20:00 Mechanical Ventilator Mechanical Ventilator 03/02/19 20:00 80 23 155/58 (90) 98 03/02/19 20:00 24 Endotracheal Tube 40 03/02/19 19:20 78 30 98 Mechanical Ventilator 50 03/02/19 19:05 82 26 98 Mechanical Ventilator 50 03/02/19 19:01 81 25 50 03/02/19 19:00 24 Mechanical Ventilator 40 03/02/19 19:00 80 23 155/58 (90) 98 03/02/19 18:10 97.6 03/02/19 18:00 81 25 150/56 (87) 99 03/02/19 18:00 24 Mechanical Ventilator 40 03/02/19 17:40 24 Mechanical Ventilator 40 03/02/19 17:06 80 24 50 03/02/19 17:01 24 Mechanical Ventilator 40 03/02/19 17:00 79 25 139/79 (99) 98 03/02/19 16:00 50 03/02/19 16:00 76 03/02/19 16:00 24 Mechanical Ventilator 40 03/02/19 16:00 Mechanical Ventilator Mechanical Ventilator 03/02/19 16:00 98.4 77 26 144/61 (88) 99 03/02/19 15:00 75 24 142/51 (81) 98 03/02/19 15:00 22 Mechanical Ventilator 40 03/02/19 14:58 76 25 50 03/02/19 14:20 153/59 03/02/19 14:00 24 Mechanical Ventilator 40 03/02/19 14:00 76 24 153/59 (90) 97 03/02/19 13:47 71 24 97 Mechanical Ventilator 40 03/02/19 13:39 70 25 40 03/02/19 13:38 70 24 98 Mechanical Ventilator 40 03/02/19 13:05 72 18 99 03/02/19 13:00 98.6 72 135/50 (78) 03/02/19 13:00 24 Mechanical Ventilator 40 03/02/19 12:00 40 03/02/19 12:00 Mechanical Ventilator Mechanical Ventilator 03/02/19 12:00 24 Mechanical Ventilator 40 03/02/19 12:00 69 03/02/19 11:00 72 21 147/62 (90) 99 03/02/19 11:00 69 29 40 03/02/19 11:00 24 Mechanical Ventilator 40 03/02/19 10:00 71 15 128/54 (78) 98 03/02/19 10:00 24 Mechanical Ventilator 40 03/02/19 09:30 71 14 125/49 (74) 97 03/02/19 09:12 78 24 40 03/02/19 09:00 86 21 129/57 (81) 99 03/02/19 09:00 24 Mechanical Ventilator 40 03/02/19 08:34 139/54 03/02/19 08:30 99 20 141/96 (111) 94 03/02/19 08:22 84 139/54 03/02/19 08:22 84 139/54 03/02/19 08:00 79 03/02/19 08:00 24 Mechanical Ventilator 40 03/02/19 08:00 Mechanical Ventilator Mechanical Ventilator 03/02/19 08:00 98.9 82 23 139/54 (82) 98 03/02/19 08:00 40 03/02/19 07:20 78 24 98 Mechanical Ventilator 40 03/02/19 07:10 81 24 99 Mechanical Ventilator 40 03/02/19 07:00 75 18 128/52 (77) 98 03/02/19 07:00 24 Mechanical Ventilator 40 03/02/19 06:56 75 26 40 03/02/19 06:30 77 16 141/56 (84) 98 03/02/19 06:27 143/56 03/02/19 06:27 143/56 03/02/19 06:00 98.5 78 19 143/56 (85) 98 03/02/19 05:30 77 18 148/56 (86) 98 03/02/19 05:00 18 Mechanical Ventilator 03/02/19 05:00 77 19 147/67 (93) 98 03/02/19 04:51 79 25 40 03/02/19 04:30 73 15 133/51 (78) 99 03/02/19 04:09 17 Mechanical Ventilator 03/02/19 04:00 Mechanical Ventilator Mechanical Ventilator 03/02/19 04:00 40 03/02/19 04:00 18 Mechanical Ventilator 03/02/19 04:00 76 03/02/19 04:00 76 15 133/61 (85) 99 03/02/19 03:30 83 18 169/65 (99) 98 03/02/19 03:00 73 11 139/59 (85) 98 03/02/19 03:00 18 Mechanical Ventilator 03/02/19 02:32 73 24 40 03/02/19 02:30 73 11 139/59 (85) 98 03/02/19 02:00 20 Mechanical Ventilator 03/02/19 02:00 76 13 143/65 (91) 98 03/02/19 01:30 85 21 156/70 (98) 96 03/02/19 01:25 76 27 99 Mechanical Ventilator 40 03/02/19 01:14 79 27 99 Mechanical Ventilator 40 03/02/19 01:12 80 25 40 03/02/19 01:00 18 Mechanical Ventilator 03/02/19 01:00 83 18 156/70 (98) 97 03/02/19 00:30 80 12 151/59 (89) 97 03/02/19 00:28 158/64 03/02/19 00:00 Mechanical Ventilator Mechanical Ventilator 03/02/19 00:00 76 03/02/19 00:00 80 15 158/64 (95) 97 03/02/19 00:00 20 Mechanical Ventilator 03/01/19 23:30 81 22 159/59 (92) 98 03/01/19 23:10 81 24 40 03/01/19 23:00 20 Mechanical Ventilator 03/01/19 23:00 80 17 157/71 (99) 97 03/01/19 22:43 154/59 03/01/19 22:30 78 19 154/59 (90) 97 03/01/19 22:00 78 19 158/58 (91) 97 03/01/19 22:00 20 Mechanical Ventilator 03/01/19 21:22 162/72 03/01/19 21:10 81 25 40 03/01/19 21:00 17 Mechanical Ventilator 03/01/19 21:00 91 21 157/58 (91) 94 03/01/19 20:44 92 157/65 03/01/19 20:30 92 21 157/65 (95) 96 03/01/19 20:00 79 03/01/19 20:00 Mechanical Ventilator Mechanical Ventilator 03/01/19 20:00 98.5 89 22 151/61 (91) 97 03/01/19 20:00 17 Mechanical Ventilator 03/01/19 20:00 40 03/01/19 19:17 78 29 98 Mechanical Ventilator 40 03/01/19 19:09 85 28 97 Mechanical Ventilator 40 03/01/19 19:08 86 26 40 03/01/19 19:00 24 Mechanical Ventilator 100 03/01/19 19:00 88 23 144/58 (86) 97 03/01/19 18:30 91 159/65 (96) 95 03/01/19 18:24 157/60 03/01/19 18:00 88 164/64 (97) 97 03/01/19 18:00 24 Mechanical Ventilator 100 03/01/19 17:30 86 25 169/85 (113) 95 03/01/19 17:01 24 Mechanical Ventilator 100 03/01/19 17:00 87 26 171/65 (100) 94 03/01/19 16:53 82 29 40 03/01/19 16:00 82 03/01/19 16:00 40 03/01/19 16:00 Mechanical Ventilator Mechanical Ventilator 03/01/19 16:00 98.3 84 26 157/60 (92) 96 03/01/19 16:00 24 Mechanical Ventilator 100 03/01/19 15:00 80 19 144/53 (83) 97 03/01/19 15:00 24 Mechanical Ventilator 100 03/01/19 14:42 82 26 40 03/01/19 14:32 156/56 03/01/19 14:30 82 25 162/42 (82) 94 03/01/19 14:00 78 25 154/56 (88) 96 03/01/19 14:00 24 Mechanical Ventilator 100 03/01/19 13:48 79 24 97 Mechanical Ventilator 40 03/01/19 13:36 78 26 98 Mechanical Ventilator 40 03/01/19 13:30 78 24 147/54 (85) 98 03/01/19 13:30 77 24 40 03/01/19 13:00 98.2 80 24 156/65 (95) 98 03/01/19 13:00 24 Mechanical Ventilator 100 03/01/19 12:36 162/73 03/01/19 12:00 Mechanical Ventilator Mechanical Ventilator 03/01/19 12:00 40 03/01/19 12:00 79 03/01/19 12:00 24 Mechanical Ventilator 100 03/01/19 12:00 79 25 155/69 (97) 95 03/01/19 11:01 84 34 40 03/01/19 11:00 82 26 152/68 (96) 96 03/01/19 11:00 24 Mechanical Ventilator 100 Intake and Output 03/02/19 03/03/19 18:59 06:59 Intake Total 1077 ml 1028.5 ml Output Total 1970 ml 1775 ml Balance -893 ml -746.5 ml IV Total 905 ml 512.5 ml Tube Feeding 172 ml 516 ml Output Urine Total 1970 ml 1775 ml Labs Test 03/01/19 05:26 03/02/19 05:01 03/02/19 17:50 03/03/19 08:30 White Blood Count 4.2 K/UL (4.8-10.8) 3.5 K/UL (4.8-10.8) 3.4 K/UL (4.8-10.8) 3.1 K/UL (4.8-10.8) Red Blood Count 2.82 M/UL (4.70-6.10) 2.78 M/UL (4.70-6.10) 2.84 M/UL (4.70-6.10) 2.87 M/UL (4.70-6.10) Hemoglobin 8.1 G/DL (14.2-18.0) 7.9 G/DL (14.2-18.0) 8.1 G/DL (14.2-18.0) 8.4 G/DL (14.2-18.0) Hematocrit 24.8 % (42.0-52.0) 24.3 % (42.0-52.0) 25.1 % (42.0-52.0) 24.9 % (42.0-52.0) Mean Corpuscular Volume 88 FL (80-99) 87 FL (80-99) 88 FL (80-99) 87 FL (80- 99) Mean Corpuscular Hemoglobin 28.6 PG (27.0-31.0) 28.4 PG (27.0-31.0) 28.5 PG (27.0-31.0) 29.2 PG (27.0-31.0) Mean Corpuscular Hemoglobin Concent 32.6 G/DL (32.0-36.0) 32.5 G/DL (32.0-36.0) 32.3 G/DL (32.0-36.0) 33.8 G/DL (32.0-36.0) Red Cell Distribution Width 16.8 % (11.6-14.8) 16.8 % (11.6-14.8) 16.1 % (11.6-14.8) 16.9 % (11.6-14.8) Platelet Count 104 K/UL (150-450) 100 K/UL (150-450) 94 K/UL (150-450) 106 K/UL (150-450) Mean Platelet Volume 6.1 FL (6.5-10.1) 5.8 FL (6.5-10.1) 6.2 FL (6.5-10.1) 5.7 FL (6.5-10.1) Neutrophils (%) (Auto) % (45.0-75.0) % (45.0-75.0) % (45.0-75.0) % (45.0- 75.0) Lymphocytes (%) (Auto) % (20.0-45.0) % (20.0-45.0) % (20.0-45.0) % (20.0- 45.0) Monocytes (%) (Auto) % (1.0-10.0) % (1.0-10.0) % (1.0-10.0) % (1.0-10.0) Eosinophils (%) (Auto) % (0.0-3.0) % (0.0-3.0) % (0.0-3.0) % (0.0-3.0) Basophils (%) (Auto) % (0.0-2.0) % (0.0-2.0) % (0.0-2.0) % (0.0-2.0) Differential Total Cells Counted 100 100 100 Neutrophils % (Manual) 86 % (45-75) 78 % (45-75) 73 % (45-75) Lymphocytes % (Manual) 7 % (20-45) 13 % (20-45) 15 % (20-45) Monocytes % (Manual) 6 % (1-10) 8 % (1-10) 9 % (1-10) Eosinophils % (Manual) 1 % (0-3) 1 % (0-3) 2 % (0-3) Basophils % (Manual) 0 % (0-2) 0 % (0-2) 1 % (0-2) Band Neutrophils 0 % (0-8) 0 % (0-8) 0 % (0-8) Platelet Estimate Decreased Decreased Decreased Platelet Morphology Normal Normal Normal Hypochromasia 2+ 1+ Anisocytosis 1+ 1+ 1+ Spherocytes 1+ Sodium Level 136 MMOL/L (136-145) 139 MMOL/L (136-145) 139 MMOL/L (136-145) 140 MMOL/L (136-145) Potassium Level 3.5 MMOL/L (3.5-5.1) 3.1 MMOL/L (3.5-5.1) 3.4 MMOL/L (3.5-5.1) 3.9 MMOL/L (3.5-5.1) Chloride Level 102 MMOL/L (98-107) 105 MMOL/L (98-107) 104 MMOL/L (98-107) 107 MMOL/L (98-107) Carbon Dioxide Level 22 MMOL/L (21-32) 25 MMOL/L (21-32) 26 MMOL/L (21-32) 28 MMOL/L (21-32) Anion Gap 12 mmol/L (5-15) 9 mmol/L (5-15) 9 mmol/L (5-15) 5 mmol/L (5-15) Blood Urea Nitrogen 66 mg/dL (7-18) 56 mg/dL (7-18) 47 mg/dL (7-18) 43 mg/dL (7-18) Creatinine 2.6 MG/DL (0.55-1.30) 2.3 MG/DL (0.55-1.30) 2.0 MG/DL (0.55-1.30) 1.8 MG/DL (0.55-1.30) Estimat Glomerular Filtration Rate 25.4 mL/min (>60) 29.2 mL/min (>60) 34.4 mL/min (>60) 38.8 mL/min (>60) Glucose Level 215 MG/DL (74-106) 192 MG/DL (74-106) 185 MG/DL (74-106) 247 MG/DL (74-106) Uric Acid 5.2 MG/DL (2.6-7.2) Calcium Level 8.7 MG/DL (8.5-10.1) 8.9 MG/DL (8.5-10.1) 8.5 MG/DL (8.5-10.1) 8.8 MG/DL (8.5-10.1) Phosphorus Level 3.3 MG/DL (2.5-4.9) 2.7 MG/DL (2.5-4.9) Magnesium Level 2.3 MG/DL (1.8-2.4) 2.2 MG/DL (1.8-2.4) Total Bilirubin 0.4 MG/DL (0.2-1.0) 0.5 MG/DL (0.2-1.0) Gamma Glutamyl Transpeptidase 165 U/L (5-85) Aspartate Amino Transf (AST/SGOT) 59 U/L (15-37) 69 U/L (15-37) Alanine Aminotransferase (ALT/SGPT) 51 U/L (12-78) 66 U/L (12-78) Alkaline Phosphatase 129 U/L (46-116) 114 U/L (46-116) C-Reactive Protein, Quantitative 8.3 mg/dL (0.00-0.90) Pro-B-Type Natriuretic Peptide 15505 pg/mL (0-125) Total Protein 5.5 G/DL (6.4-8.2) 4.9 G/DL (6.4-8.2) Albumin 2.4 G/DL (3.4-5.0) 2.2 G/DL (3.4-5.0) Globulin 3.1 g/dL 2.7 g/dL Albumin/Globulin Ratio 0.8 (1.0-2.7) 0.8 (1.0-2.7) Prothrombin Time 11.7 SEC (9.30-11.50) Prothromb Time International Ratio 1.1 (0.9-1.1) Activated Partial Thromboplast Time 34 SEC (23-33) Height (Feet): 6 Height (Inches): 0.00 Weight (Pounds): 251 Objective PHYSICAL EXAMINATION: GENERAL: NAD VITAL SIGNS: Have been reviewed. HEAD AND NECK: Shows no JVD. NG+ vent+ LUNGS: Coarse rhonchi. CARDIOVASCULAR: Shows regular S1 and S2 with no gallop or murmur. ABDOMEN: Soft. EXTREMITIES: No pitting edema. Chan Hernandez MD Mar 03, 2019 10:21
--- NOTE | 2019-03-03 10:27 | Nephrology Progress Note ---
Assessment/Plan Problem List: (1) ISH (acute kidney injury) Assessment: Cr lowering (2) HIV (human immunodeficiency virus infection) (3) NSTEMI (non-ST elevated myocardial infarction) Assessment: troponin decreasing (4) Hypoxia (5) Anemia (6) Diabetes Assessment Acute Renal failure- Cr leveling- Urine out put is good Acidosis improved Acute respiratory failure- Require intubation and Mechanical Ventilation- Anemia- Elevated troponin / HI HTN DM HIV Antibody + Plan Trach 03/02 adjust BP meds on feeding 3% saline once IV protonix NGt suction transfusiosn as needed no need for HD BP med adjustment UA and urine studies Avoid Nephrotoxics as possible Monitor renal parameters keep BP and BS in check Per orders No HD at this time Kidney RADHA noted adjust BP meds add Isordil Subjective ROS Limited/Unobtainable: Yes Objective Objective Last 24 Hour Vital Signs Date Time Temp Pulse Resp B/P (MAP) Pulse Ox O2 Delivery O2 Flow Rate FiO2 03/03/19 09:04 77 26 40 03/03/19 09:00 88 24 153/59 (90) 94 03/03/19 08:42 74 137/50 03/03/19 08:41 98 137/50 03/03/19 08:00 40 03/03/19 08:00 101.0 97 23 137/50 (79) 96 03/03/19 07:34 84 26 99 Mechanical Ventilator 40 03/03/19 07:16 74 24 99 Mechanical Ventilator 40 03/03/19 07:14 74 24 40 03/03/19 07:00 20 Mechanical Ventilator 40 03/03/19 07:00 71 24 137/50 (79) 98 03/03/19 06:40 20 Mechanical Ventilator 40 03/03/19 06:00 73 26 139/46 (77) 98 03/03/19 05:40 23 Mechanical Ventilator 40 03/03/19 05:22 159/61 03/03/19 05:21 159/61 03/03/19 05:07 80 26 40 03/03/19 05:00 80 24 159/61 (93) 98 03/03/19 04:52 29 Mechanical Ventilator 40 03/03/19 04:40 24 Mechanical Ventilator 40 03/03/19 04:00 98.7 80 28 159/62 (94) 92 03/03/19 04:00 50 03/03/19 04:00 78 03/03/19 04:00 Mechanical Ventilator Mechanical Ventilator 03/03/19 03:40 22 Mechanical Ventilator 40 03/03/19 03:00 88 24 158/74 (102) 99 03/03/19 02:59 89 25 40 03/03/19 02:40 20 Mechanical Ventilator 40 03/03/19 02:00 82 24 159/61 (93) 98 03/03/19 01:40 22 Mechanical Ventilator 40 03/03/19 01:33 80 27 99 Mechanical Ventilator 40 03/03/19 01:14 81 27 98 Mechanical Ventilator 40 03/03/19 01:12 81 25 40 03/03/19 01:00 74 24 153/76 (101) 98 03/03/19 00:40 24 Trach Collar 40 03/03/19 00:10 24 Trach Collar 40 03/03/19 00:00 99.3 68 23 134/57 (82) 98 03/03/19 00:00 Mechanical Ventilator Mechanical Ventilator 03/02/19 23:01 68 24 40 03/02/19 23:00 68 24 143/55 (84) 99 03/02/19 22:11 168/61 03/02/19 22:11 168/61 03/02/19 22:00 80 23 155/58 (90) 98 03/02/19 21:01 73 24 50 03/02/19 21:00 80 23 155/58 (90) 98 03/02/19 20:22 80 146/51 03/02/19 20:00 83 03/02/19 20:00 98.7 81 25 146/51 (82) 99 03/02/19 20:00 50 03/02/19 20:00 Mechanical Ventilator Mechanical Ventilator 03/02/19 20:00 80 23 155/58 (90) 98 03/02/19 20:00 24 Endotracheal Tube 40 03/02/19 19:20 78 30 98 Mechanical Ventilator 50 03/02/19 19:05 82 26 98 Mechanical Ventilator 50 03/02/19 19:01 81 25 50 03/02/19 19:00 24 Mechanical Ventilator 40 03/02/19 19:00 80 23 155/58 (90) 98 03/02/19 18:10 97.6 03/02/19 18:00 81 25 150/56 (87) 99 03/02/19 18:00 24 Mechanical Ventilator 40 03/02/19 17:40 24 Mechanical Ventilator 40 03/02/19 17:06 80 24 50 03/02/19 17:01 24 Mechanical Ventilator 40 03/02/19 17:00 79 25 139/79 (99) 98 03/02/19 16:00 50 03/02/19 16:00 76 03/02/19 16:00 24 Mechanical Ventilator 40 03/02/19 16:00 Mechanical Ventilator Mechanical Ventilator 03/02/19 16:00 98.4 77 26 144/61 (88) 99 03/02/19 15:00 75 24 142/51 (81) 98 03/02/19 15:00 22 Mechanical Ventilator 40 03/02/19 14:58 76 25 50 03/02/19 14:20 153/59 03/02/19 14:00 24 Mechanical Ventilator 40 03/02/19 14:00 76 24 153/59 (90) 97 03/02/19 13:47 71 24 97 Mechanical Ventilator 40 03/02/19 13:39 70 25 40 03/02/19 13:38 70 24 98 Mechanical Ventilator 40 03/02/19 13:05 72 18 99 03/02/19 13:00 98.6 72 135/50 (78) 03/02/19 13:00 24 Mechanical Ventilator 40 03/02/19 12:00 40 03/02/19 12:00 Mechanical Ventilator Mechanical Ventilator 03/02/19 12:00 24 Mechanical Ventilator 40 03/02/19 12:00 69 03/02/19 11:00 72 21 147/62 (90) 99 03/02/19 11:00 69 29 40 03/02/19 11:00 24 Mechanical Ventilator 40 Intake and Output 03/02/19 03/03/19 18:59 06:59 Intake Total 1077 ml 1028.5 ml Output Total 1970 ml 1775 ml Balance -893 ml -746.5 ml IV Total 905 ml 512.5 ml Tube Feeding 172 ml 516 ml Output Urine Total 1970 ml 1775 ml Laboratory Tests 03/02/19 17:50: White Blood Count 3.4L, Red Blood Count 2.84L, Hemoglobin 8.1L, Hematocrit 25.1L , Mean Corpuscular Volume 88, Mean Corpuscular Hemoglobin 28.5, Mean Corpuscular Hemoglobin Concent 32.3, Red Cell Distribution Width 16.1H, Platelet Count 94L, Mean Platelet Volume 6.2L, Neutrophils (%) (Auto) , Lymphocytes (%) (Auto) , Monocytes (%) (Auto) , Eosinophils (%) (Auto) , Basophils (%) (Auto) , Differential Total Cells Counted 100, Neutrophils % ( Manual) 73, Lymphocytes % (Manual) 15L, Monocytes % (Manual) 9, Eosinophils % ( Manual) 2, Basophils % (Manual) 1, Band Neutrophils 0, Platelet Estimate DecreasedL, Platelet Morphology Normal, Hypochromasia 1+, Anisocytosis 1+, Sodium Level 139, Potassium Level 3.4L, Chloride Level 104, Carbon Dioxide Level 26, Anion Gap 9, Blood Urea Nitrogen 47H, Creatinine 2.0H, Estimat Glomerular Filtration Rate 34.4, Glucose Level 185H, Calcium Level 8.5, Total Bilirubin 0.5, Aspartate Amino Transf (AST/SGOT) 69H, Alanine Aminotransferase ( ALT/SGPT) 66, Alkaline Phosphatase 114, Total Protein 4.9L, Albumin 2.2L, Globulin 2.7, Albumin/Globulin Ratio 0.8L 03/03/19 08:30: White Blood Count 3.1L, Red Blood Count 2.87L, Hemoglobin 8.4L, Hematocrit 24.9L , Mean Corpuscular Volume 87, Mean Corpuscular Hemoglobin 29.2, Mean Corpuscular Hemoglobin Concent 33.8, Red Cell Distribution Width 16.9H, Platelet Count 106L, Mean Platelet Volume 5.7L, Neutrophils (%) (Auto) , Lymphocytes (%) (Auto) , Monocytes (%) (Auto) , Eosinophils (%) (Auto) , Basophils (%) (Auto) , Neutrophils % (Manual) [Pending], Lymphocytes % (Manual) [Pending], Platelet Estimate [Pending], Platelet Morphology [Pending], Sodium Level 140, Potassium Level 3.9, Chloride Level 107, Carbon Dioxide Level 28, Anion Gap 5, Blood Urea Nitrogen 43H, Creatinine 1.8H, Estimat Glomerular Filtration Rate 38.8, Glucose Level 247H, Calcium Level 8.8 Height (Feet): 6 Height (Inches): 0.00 Weight (Pounds): 251 General Appearance: no apparent distress EENT: other - has trach Cardiovascular: tachycardia Respiratory/Chest: decreased breath sounds Objective no change Mike Mcdonald MD Mar 03, 2019 10:26
--- NOTE | 2019-03-03 10:40 | NUR ---
NURSE NOTES: CALLED AND LEFT A MESSAGE TO DR CRAWFORD RE LATEST TEMP. WILL CONTINUE TO MONITOR.
--- NOTE | 2019-03-03 10:53 | General Progress Note ---
Assessment/Plan Problem List: (1) ISH (acute kidney injury) ICD Codes: N17.9 - Acute kidney failure, unspecified SNOMED: 65558312 (2) Uncontrolled type 2 diabetes mellitus with chronic kidney disease ICD Codes: E11.22 - Type 2 diabetes mellitus with diabetic chronic kidney disease; E11.65 - Type 2 diabetes mellitus with hyperglycemia SNOMED: 35730806, 957529613, 044117390 (3) HIV disease ICD Codes: B20 - Human immunodeficiency virus [HIV] disease SNOMED: 01371401 (4) Respiratory distress ICD Codes: R06.03 - Acute respiratory distress SNOMED: 092389147 Status: stable Assessment/Plan: - continue Novolog sliding scale every 6 hours - increase Levemir to 10 units bid Subjective ROS Limited/Unobtainable: Yes Allergies: Coded Allergies: No Known Allergies (Unverified , 02/05/13) Subjective events noted trach - vent glucose on higher side Item Value Date Time Bedside Blood Glucose 235 mg/dl H 03/03/19 0904 Bedside Blood Glucose 211 mg/dl H 03/03/19 0600 Bedside Blood Glucose 223 mg/dl H 03/03/19 0009 Bedside Blood Glucose 191 mg/dl H 03/02/19 2100 Bedside Blood Glucose 192 mg/dl H 03/02/19 1800 Objective Last 24 Hour Vital Signs Date Time Temp Pulse Resp B/P (MAP) Pulse Ox O2 Delivery O2 Flow Rate FiO2 03/03/19 10:00 72 24 139/48 (78) 100 03/03/19 10:00 24 Mechanical Ventilator 40 03/03/19 09:23 100.8 03/03/19 09:04 77 26 40 03/03/19 09:00 24 Mechanical Ventilator 23 03/03/19 09:00 88 24 153/59 (90) 94 03/03/19 08:42 74 137/50 03/03/19 08:41 98 137/50 03/03/19 08:00 40 03/03/19 08:00 101.0 97 23 137/50 (79) 96 03/03/19 08:00 23 Mechanical Ventilator 40 03/03/19 08:00 Mechanical Ventilator Mechanical Ventilator 03/03/19 07:34 84 26 99 Mechanical Ventilator 40 03/03/19 07:16 74 24 99 Mechanical Ventilator 40 03/03/19 07:14 74 24 40 03/03/19 07:00 20 Mechanical Ventilator 40 03/03/19 07:00 71 24 137/50 (79) 98 03/03/19 06:40 20 Mechanical Ventilator 40 03/03/19 06:00 73 26 139/46 (77) 98 03/03/19 05:40 23 Mechanical Ventilator 40 03/03/19 05:22 159/61 03/03/19 05:21 159/61 03/03/19 05:07 80 26 40 03/03/19 05:00 80 24 159/61 (93) 98 03/03/19 04:52 29 Mechanical Ventilator 40 03/03/19 04:40 24 Mechanical Ventilator 40 03/03/19 04:00 98.7 80 28 159/62 (94) 92 03/03/19 04:00 50 03/03/19 04:00 78 03/03/19 04:00 Mechanical Ventilator Mechanical Ventilator 03/03/19 03:40 22 Mechanical Ventilator 40 03/03/19 03:00 88 24 158/74 (102) 99 03/03/19 02:59 89 25 40 03/03/19 02:40 20 Mechanical Ventilator 40 03/03/19 02:00 82 24 159/61 (93) 98 03/03/19 01:40 22 Mechanical Ventilator 40 03/03/19 01:33 80 27 99 Mechanical Ventilator 40 03/03/19 01:14 81 27 98 Mechanical Ventilator 40 03/03/19 01:12 81 25 40 03/03/19 01:00 74 24 153/76 (101) 98 03/03/19 00:40 24 Trach Collar 40 03/03/19 00:10 24 Trach Collar 40 03/03/19 00:00 99.3 68 23 134/57 (82) 98 03/03/19 00:00 Mechanical Ventilator Mechanical Ventilator 03/02/19 23:01 68 24 40 03/02/19 23:00 68 24 143/55 (84) 99 03/02/19 22:11 168/61 03/02/19 22:11 168/61 03/02/19 22:00 80 23 155/58 (90) 98 03/02/19 21:01 73 24 50 03/02/19 21:00 80 23 155/58 (90) 98 03/02/19 20:22 80 146/51 03/02/19 20:00 83 03/02/19 20:00 98.7 81 25 146/51 (82) 99 03/02/19 20:00 50 03/02/19 20:00 Mechanical Ventilator Mechanical Ventilator 03/02/19 20:00 80 23 155/58 (90) 98 03/02/19 20:00 24 Endotracheal Tube 40 03/02/19 19:20 78 30 98 Mechanical Ventilator 50 03/02/19 19:05 82 26 98 Mechanical Ventilator 50 03/02/19 19:01 81 25 50 03/02/19 19:00 24 Mechanical Ventilator 40 03/02/19 19:00 80 23 155/58 (90) 98 03/02/19 18:10 97.6 03/02/19 18:00 81 25 150/56 (87) 99 03/02/19 18:00 24 Mechanical Ventilator 40 03/02/19 17:40 24 Mechanical Ventilator 40 03/02/19 17:06 80 24 50 03/02/19 17:01 24 Mechanical Ventilator 40 03/02/19 17:00 79 25 139/79 (99) 98 03/02/19 16:00 50 03/02/19 16:00 76 03/02/19 16:00 24 Mechanical Ventilator 40 03/02/19 16:00 Mechanical Ventilator Mechanical Ventilator 03/02/19 16:00 98.4 77 26 144/61 (88) 99 03/02/19 15:00 75 24 142/51 (81) 98 03/02/19 15:00 22 Mechanical Ventilator 40 03/02/19 14:58 76 25 50 03/02/19 14:20 153/59 03/02/19 14:00 24 Mechanical Ventilator 40 03/02/19 14:00 76 24 153/59 (90) 97 03/02/19 13:47 71 24 97 Mechanical Ventilator 40 03/02/19 13:39 70 25 40 03/02/19 13:38 70 24 98 Mechanical Ventilator 40 03/02/19 13:05 72 18 99 03/02/19 13:00 98.6 72 135/50 (78) 03/02/19 13:00 24 Mechanical Ventilator 40 03/02/19 12:00 40 03/02/19 12:00 Mechanical Ventilator Mechanical Ventilator 03/02/19 12:00 24 Mechanical Ventilator 40 03/02/19 12:00 69 03/02/19 11:00 72 21 147/62 (90) 99 03/02/19 11:00 69 29 40 03/02/19 11:00 24 Mechanical Ventilator 40 Intake and Output 03/02/19 03/03/19 18:59 06:59 Intake Total 1077 ml 1028.5 ml Output Total 1970 ml 1775 ml Balance -893 ml -746.5 ml IV Total 905 ml 512.5 ml Tube Feeding 172 ml 516 ml Output Urine Total 1970 ml 1775 ml Laboratory Tests 03/02/19 17:50: White Blood Count 3.4L, Red Blood Count 2.84L, Hemoglobin 8.1L, Hematocrit 25.1L , Mean Corpuscular Volume 88, Mean Corpuscular Hemoglobin 28.5, Mean Corpuscular Hemoglobin Concent 32.3, Red Cell Distribution Width 16.1H, Platelet Count 94L, Mean Platelet Volume 6.2L, Neutrophils (%) (Auto) , Lymphocytes (%) (Auto) , Monocytes (%) (Auto) , Eosinophils (%) (Auto) , Basophils (%) (Auto) , Differential Total Cells Counted 100, Neutrophils % ( Manual) 73, Lymphocytes % (Manual) 15L, Monocytes % (Manual) 9, Eosinophils % ( Manual) 2, Basophils % (Manual) 1, Band Neutrophils 0, Platelet Estimate DecreasedL, Platelet Morphology Normal, Hypochromasia 1+, Anisocytosis 1+, Sodium Level 139, Potassium Level 3.4L, Chloride Level 104, Carbon Dioxide Level 26, Anion Gap 9, Blood Urea Nitrogen 47H, Creatinine 2.0H, Estimat Glomerular Filtration Rate 34.4, Glucose Level 185H, Calcium Level 8.5, Total Bilirubin 0.5, Aspartate Amino Transf (AST/SGOT) 69H, Alanine Aminotransferase ( ALT/SGPT) 66, Alkaline Phosphatase 114, Total Protein 4.9L, Albumin 2.2L, Globulin 2.7, Albumin/Globulin Ratio 0.8L 03/03/19 08:30: White Blood Count 3.1L, Red Blood Count 2.87L, Hemoglobin 8.4L, Hematocrit 24.9L , Mean Corpuscular Volume 87, Mean Corpuscular Hemoglobin 29.2, Mean Corpuscular Hemoglobin Concent 33.8, Red Cell Distribution Width 16.9H, Platelet Count 106L, Mean Platelet Volume 5.7L, Neutrophils (%) (Auto) , Lymphocytes (%) (Auto) , Monocytes (%) (Auto) , Eosinophils (%) (Auto) , Basophils (%) (Auto) , Differential Total Cells Counted 100, Neutrophils % ( Manual) 76H, Lymphocytes % (Manual) 15L, Monocytes % (Manual) 6, Eosinophils % ( Manual) 3, Basophils % (Manual) 0, Band Neutrophils 0, Platelet Estimate DecreasedL, Platelet Morphology Normal, Anisocytosis 1+, Sodium Level 140, Potassium Level 3.9, Chloride Level 107, Carbon Dioxide Level 28, Anion Gap 5, Blood Urea Nitrogen 43H, Creatinine 1.8H, Estimat Glomerular Filtration Rate 38.8, Glucose Level 247H, Calcium Level 8.8 Height (Feet): 6 Height (Inches): 0.00 Weight (Pounds): 251 General Appearance: no apparent distress EENT: other - tracheostomy Neck: normal alignment Cardiovascular: normal rate Respiratory/Chest: decreased breath sounds Abdomen: normal bowel sounds Pelvis: normal external exam Edema: 1+ Arm (L), 1+ Arm (R), 1+ Leg (L), 1+ Leg (R), 1+ Pedal (L), 1+ Pedal ( R), 1+ Generalized Objective Current Medications Medications (Trade) Dose Ordered Sig/Marquis Route PRN Reason Start Time Stop Time Status Last Admin Dose Admin Acetaminophen (Tylenol) 650 mg Q4H PRN ORAL Mild Pain (Pain Scale 1-3) 02/07/19 11:15 03/08/19 17:29 03/03/19 08:53 Acetaminophen/ Butalbital/ Caffeine (Fioricet) 1 tab Q8H PRN ORAL For Headache 02/08/19 17:15 03/10/19 17:14 Albuterol/ Ipratropium (Albuterol/ Ipratropium) 3 ml Q4H PRN HHN Shortness of Breath 02/26/19 12:30 03/03/19 12:29 Albuterol/ Ipratropium (Albuterol/ Ipratropium) 3 ml Q6HRT HHN 02/26/19 13:00 03/03/19 12:59 03/03/19 07:16 Amlodipine Besylate (Norvasc) 10 mg DAILY NG 02/15/19 09:00 03/14/19 15:59 03/03/19 08:41 Artificial Tears (Lacri-Lube) 1 applic AC+HS BOTH EYES 02/18/19 06:30 03/20/19 06:29 03/03/19 06:21 Bisacodyl (Dulcolax) 5 mg DAILYPRN PRN ORAL Constipation 02/08/19 17:15 03/10/19 17:14 02/25/19 12:45 Cefepime HCl 2 gm/ Dextrose 110 ml @ 220 mls/hr Q24H IV 03/02/19 16:00 03/09/19 15:59 03/02/19 17:01 Chlorhexidine Gluconate (Jessy-Hex 2%) 1 applic DAILY@2000 TOPIC 02/25/19 20:00 03/27/19 19:59 03/02/19 20:22 Clindamycin HCl/ Dextrose 50 ml @ 100 mls/hr Q8HR IV 02/27/19 22:00 03/06/19 21:59 03/03/19 05:21 Clonidine HCl (Catapres tab) 0.2 mg EVERY 8 HOURS NG 03/02/19 22:00 03/19/19 13:59 03/03/19 05:22 Dextrose (Dextrose 50%) 25 ml Q30M PRN IV Hypoglycemia 03/01/19 07:15 03/31/19 07:14 Dextrose (Dextrose 50%) 50 ml Q30M PRN IV Hypoglycemia 03/01/19 07:15 03/31/19 07:14 Docusate Sodium (Colace) 100 mg TID GT 02/12/19 18:00 03/12/19 08:59 03/03/19 08:40 Fentanyl Citrate 2500 mcg/Sodium Chloride 250 ml @ 0 mls/hr Q24H IV 03/03/19 00:00 03/10/19 00:00 03/03/19 04:52 Fluconazole/ Sodium Chloride 100 ml @ 100 mls/hr Q24H IV 02/26/19 18:00 03/05/19 17:59 03/02/19 17:02 Furosemide (Lasix) 40 mg DAILY IV 03/01/19 09:00 03/31/19 08:59 03/03/19 08:42 Guaifenesin (Mucinex ER) 600 mg TWICE A DAY ORAL 02/07/19 18:00 03/09/19 08:59 03/03/19 08:42 Heparin Sodium (Porcine) (Heparin 5000 units/ml) 5,000 units EVERY 12 HOURS SUBQ 02/26/19 21:00 03/28/19 20:59 02/28/19 21:05 Hydralazine HCl (Apresoline) 10 mg Q4H PRN IV bp over 165 syst 02/17/19 10:15 03/19/19 10:14 02/19/19 14:45 Hydralazine HCl (Apresoline) 50 mg Q8HR NG 02/22/19 14:00 03/21/19 21:59 03/03/19 05:21 Insulin Aspart (NovoLOG) EVERY 6 HOURS SUBQ 02/26/19 12:00 03/28/19 11:59 03/03/19 05:23 Insulin Detemir (Levemir) 6 units Q12HR SUBQ 03/02/19 21:00 04/01/19 20:59 03/03/19 09:04 Lorazepam (Ativan 2mg/ml 1ml) 2 mg Q2H PRN IV For Anxiety 02/27/19 13:48 03/06/19 13:47 03/03/19 02:46 Metoclopramide HCl (Reglan) 5 mg Q8H IVP 02/26/19 09:00 03/28/19 08:59 03/03/19 08:43 Metolazone (Zaroxolyn) 10 mg DAILY NG 02/19/19 10:00 03/21/19 09:59 03/03/19 08:40 Metoprolol Tartrate (Lopressor) 100 mg Q12HR ORAL 02/22/19 21:00 03/08/19 20:59 03/03/19 08:42 Midazolam HCl (Versed 2mg/2ml vial) 1 mg Q2H PRN IVP Agitation 02/13/19 08:45 03/15/19 08:44 02/27/19 11:05 Neomycin/ Polymyxin/ Dexamethasone (Maxitrol Opth Oint) 1 applic BEDTIME BOTH EYES 02/18/19 21:00 03/20/19 20:59 03/02/19 20:24 Nitroglycerin (Ntg) 0.4 mg Q5M PRN SL Prn Chest Pain 02/07/19 11:00 03/08/19 17:29 02/08/19 07:42 Ondansetron HCl (Zofran) 4 mg Q6H PRN IVP Nausea & Vomiting 02/07/19 11:15 03/08/19 11:14 02/09/19 00:58 Pantoprazole (Protonix) 40 mg DAILY IVP 02/26/19 09:00 03/24/19 20:59 03/03/19 08:42 Patient Own Medication (Patient's Own Med) 1 ea BID ORAL 02/07/19 18:00 03/09/19 17:59 03/03/19 08:39 Patient Own Medication (Patient's Own Med) 1 ea Q48H ORAL 02/18/19 09:00 03/20/19 08:59 03/02/19 09:38 Patient Own Medication (Patient's Own Med) 2 ea DAILY ORAL 02/08/19 09:00 03/10/19 08:59 03/03/19 08:39 Polyethylene Glycol (Miralax) 17 gm BEDTIME ORAL 02/08/19 21:00 03/10/19 20:59 03/02/19 20:22 Primaquine Phosphate (Primaquine) 26.3 mg DAILY ORAL 02/28/19 09:00 03/30/19 08:59 03/03/19 08:39 Sennosides (Senokot) 8.6 mg DAILY ORAL 02/13/19 12:00 03/15/19 11:59 03/03/19 08:41 Carlito Nichols MD Mar 03, 2019 10:53
--- NOTE | 2019-03-03 10:55 | NUR ---
NURSE NOTES: ORDERS RECEIVED FROM DR CRAWFORD. WILL CONTINUE TO MONITOR
--- NOTE | 2019-03-03 11:59 | Surgery Progress Note ---
Surgery Progress Note Subjective Procedure Performed tracheostomy Additional Comments s/p trach stable comfortable Objective Last 24 Hour Vital Signs Date Time Temp Pulse Resp B/P (MAP) Pulse Ox O2 Delivery O2 Flow Rate FiO2 03/03/19 11:10 79 26 40 03/03/19 10:00 72 24 139/48 (78) 100 03/03/19 10:00 24 Mechanical Ventilator 40 03/03/19 09:23 100.8 03/03/19 09:04 77 26 40 03/03/19 09:00 24 Mechanical Ventilator 23 03/03/19 09:00 88 24 153/59 (90) 94 03/03/19 08:42 74 137/50 03/03/19 08:41 98 137/50 03/03/19 08:00 40 03/03/19 08:00 101.0 97 23 137/50 (79) 96 03/03/19 08:00 23 Mechanical Ventilator 40 03/03/19 08:00 Mechanical Ventilator Mechanical Ventilator 03/03/19 07:34 84 26 99 Mechanical Ventilator 40 03/03/19 07:16 74 24 99 Mechanical Ventilator 40 03/03/19 07:14 74 24 40 03/03/19 07:00 20 Mechanical Ventilator 40 03/03/19 07:00 71 24 137/50 (79) 98 03/03/19 06:40 20 Mechanical Ventilator 40 03/03/19 06:00 73 26 139/46 (77) 98 03/03/19 05:40 23 Mechanical Ventilator 40 03/03/19 05:22 159/61 03/03/19 05:21 159/61 03/03/19 05:07 80 26 40 03/03/19 05:00 80 24 159/61 (93) 98 03/03/19 04:52 29 Mechanical Ventilator 40 03/03/19 04:40 24 Mechanical Ventilator 40 03/03/19 04:00 98.7 80 28 159/62 (94) 92 03/03/19 04:00 50 03/03/19 04:00 78 03/03/19 04:00 Mechanical Ventilator Mechanical Ventilator 03/03/19 03:40 22 Mechanical Ventilator 40 03/03/19 03:00 88 24 158/74 (102) 99 03/03/19 02:59 89 25 40 03/03/19 02:40 20 Mechanical Ventilator 40 03/03/19 02:00 82 24 159/61 (93) 98 03/03/19 01:40 22 Mechanical Ventilator 40 03/03/19 01:33 80 27 99 Mechanical Ventilator 40 03/03/19 01:14 81 27 98 Mechanical Ventilator 40 03/03/19 01:12 81 25 40 03/03/19 01:00 74 24 153/76 (101) 98 03/03/19 00:40 24 Trach Collar 40 03/03/19 00:10 24 Trach Collar 40 03/03/19 00:00 99.3 68 23 134/57 (82) 98 03/03/19 00:00 Mechanical Ventilator Mechanical Ventilator 03/02/19 23:01 68 24 40 03/02/19 23:00 68 24 143/55 (84) 99 03/02/19 22:11 168/61 03/02/19 22:11 168/61 03/02/19 22:00 80 23 155/58 (90) 98 03/02/19 21:01 73 24 50 03/02/19 21:00 80 23 155/58 (90) 98 03/02/19 20:22 80 146/51 03/02/19 20:00 83 03/02/19 20:00 98.7 81 25 146/51 (82) 99 03/02/19 20:00 50 03/02/19 20:00 Mechanical Ventilator Mechanical Ventilator 03/02/19 20:00 80 23 155/58 (90) 98 03/02/19 20:00 24 Endotracheal Tube 40 03/02/19 19:20 78 30 98 Mechanical Ventilator 50 03/02/19 19:05 82 26 98 Mechanical Ventilator 50 03/02/19 19:01 81 25 50 03/02/19 19:00 24 Mechanical Ventilator 40 03/02/19 19:00 80 23 155/58 (90) 98 03/02/19 18:10 97.6 03/02/19 18:00 81 25 150/56 (87) 99 03/02/19 18:00 24 Mechanical Ventilator 40 03/02/19 17:40 24 Mechanical Ventilator 40 03/02/19 17:06 80 24 50 03/02/19 17:01 24 Mechanical Ventilator 40 03/02/19 17:00 79 25 139/79 (99) 98 03/02/19 16:00 50 03/02/19 16:00 76 03/02/19 16:00 24 Mechanical Ventilator 40 03/02/19 16:00 Mechanical Ventilator Mechanical Ventilator 03/02/19 16:00 98.4 77 26 144/61 (88) 99 03/02/19 15:00 75 24 142/51 (81) 98 03/02/19 15:00 22 Mechanical Ventilator 40 03/02/19 14:58 76 25 50 03/02/19 14:20 153/59 03/02/19 14:00 24 Mechanical Ventilator 40 03/02/19 14:00 76 24 153/59 (90) 97 03/02/19 13:47 71 24 97 Mechanical Ventilator 40 03/02/19 13:39 70 25 40 03/02/19 13:38 70 24 98 Mechanical Ventilator 40 03/02/19 13:05 72 18 99 03/02/19 13:00 98.6 72 135/50 (78) 03/02/19 13:00 24 Mechanical Ventilator 40 03/02/19 12:00 40 03/02/19 12:00 Mechanical Ventilator Mechanical Ventilator 03/02/19 12:00 24 Mechanical Ventilator 40 03/02/19 12:00 69 I&O Intake and Output 03/02/19 03/03/19 18:59 06:59 Intake Total 1077 ml 1028.5 ml Output Total 1970 ml 1775 ml Balance -893 ml -746.5 ml IV Total 905 ml 512.5 ml Tube Feeding 172 ml 516 ml Output Urine Total 1970 ml 1775 ml Dressing: dry Wound: clean Cardiovascular: RSR Respiratory: clear, decreased breath sounds, other Abdomen: soft, non-distended, decreased bowel sounds Extremities: no cyanosis Laboratory Tests Test 03/02/19 17:50 03/03/19 08:30 White Blood Count 3.4 K/UL (4.8-10.8) L 3.1 K/UL (4.8-10.8) L Red Blood Count 2.84 M/UL (4.70-6.10) L 2.87 M/UL (4.70-6.10) L Hemoglobin 8.1 G/DL (14.2-18.0) L 8.4 G/DL (14.2-18.0) L Hematocrit 25.1 % (42.0-52.0) L 24.9 % (42.0-52.0) L Mean Corpuscular Volume 88 FL (80-99) 87 FL (80-99) Mean Corpuscular Hemoglobin 28.5 PG (27.0-31.0) 29.2 PG (27.0-31.0) Mean Corpuscular Hemoglobin Concent 32.3 G/DL (32.0-36.0) 33.8 G/DL (32.0-36.0) Red Cell Distribution Width 16.1 % (11.6-14.8) H 16.9 % (11.6-14.8) H Platelet Count 94 K/UL (150-450) L 106 K/UL (150-450) L Mean Platelet Volume 6.2 FL (6.5-10.1) L 5.7 FL (6.5-10.1) L Neutrophils (%) (Auto) % (45.0-75.0) % (45.0-75.0) Lymphocytes (%) (Auto) % (20.0-45.0) % (20.0-45.0) Monocytes (%) (Auto) % (1.0-10.0) % (1.0-10.0) Eosinophils (%) (Auto) % (0.0-3.0) % (0.0-3.0) Basophils (%) (Auto) % (0.0-2.0) % (0.0-2.0) Differential Total Cells Counted 100 100 Neutrophils % (Manual) 73 % (45-75) 76 % (45-75) H Lymphocytes % (Manual) 15 % (20-45) L 15 % (20-45) L Monocytes % (Manual) 9 % (1-10) 6 % (1-10) Eosinophils % (Manual) 2 % (0-3) 3 % (0-3) Basophils % (Manual) 1 % (0-2) 0 % (0-2) Band Neutrophils 0 % (0-8) 0 % (0-8) Platelet Estimate Decreased L Decreased L Platelet Morphology Normal Normal Hypochromasia 1+ Anisocytosis 1+ 1+ Sodium Level 139 MMOL/L (136-145) 140 MMOL/L (136-145) Potassium Level 3.4 MMOL/L (3.5-5.1) L 3.9 MMOL/L (3.5-5.1) Chloride Level 104 MMOL/L (98-107) 107 MMOL/L (98-107) Carbon Dioxide Level 26 MMOL/L (21-32) 28 MMOL/L (21-32) Anion Gap 9 mmol/L (5-15) 5 mmol/L (5-15) Blood Urea Nitrogen 47 mg/dL (7-18) H 43 mg/dL (7-18) H Creatinine 2.0 MG/DL (0.55-1.30) H 1.8 MG/DL (0.55-1.30) H Estimat Glomerular Filtration Rate 34.4 mL/min (>60) 38.8 mL/min (>60) Glucose Level 185 MG/DL (74-106) H 247 MG/DL (74-106) H Calcium Level 8.5 MG/DL (8.5-10.1) 8.8 MG/DL (8.5-10.1) Total Bilirubin 0.5 MG/DL (0.2-1.0) Aspartate Amino Transf (AST/SGOT) 69 U/L (15-37) H Alanine Aminotransferase (ALT/SGPT) 66 U/L (12-78) Alkaline Phosphatase 114 U/L (46-116) Total Protein 4.9 G/DL (6.4-8.2) L Albumin 2.2 G/DL (3.4-5.0) L Globulin 2.7 g/dL Albumin/Globulin Ratio 0.8 (1.0-2.7) L Plan Problems: (1) Hypoxia Assessment & Plan: Extensive bilateral upper lobe infiltrates likely inflammatory/infectious. Correlate clinically. Tuberculosis is not excludable. Bilateral pleural effusions. Endotracheal tube and nasogastric tube in good position Atherosclerotic vascular disease (2) Respiratory distress Assessment & Plan: on vent support s/p trach wean vent as tolerated (3) Sepsis Assessment & Plan: Sepsis with tachycardia, leukocytosis - resolved, abnormal labs, respiratory distress on vent Cont IV abx CXR noted appreciate ICU team care abnormal lft's US noted will cont to follow with recs trend labs Rx as written Moiz Costa Mar 03, 2019 11:59
[2019-03-03] MEDS ORDERED: Vancomycin 1.25gm Premix IVPB SCH (12:00)
--- NOTE | 2019-03-03 12:02 | Diagnostic Imaging Report ---
Indication: Dyspnea Comparison: 02/26/2019 A single view chest radiograph was obtained. Findings: Central hilar edema with cephalization of pulmonary vessels and interstitial opacities likely due to CHF demonstrated. There is a probable left pleural effusion. NG tube and tracheostomy noted in good position. IMPRESSION: Status post tracheostomy. No pneumothorax Pulmonary edema.
--- NOTE | 2019-03-03 12:23 | Infectious Diseases Prog Note ---
Assessment/Plan Assessment/Plan A) 1) pneumonia - ? aspiration/hcap, ? CAP, ? pneumocystis pna, ? fungal ( cryptococcus), sepsis, leukocytosis, ? 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, on anti-retroviral treatment 4) rule out TB pna, in isolation - afb smear on bronchoscopy is negative, TB spot negative 5) pmh noted - hypertension, ckd, anemia, dm, cva, tia, migraines 6) allergies - nkda, sh-negative, fh-nc, mar noted 7) d/w RN P) 1) antibiotics changed to vancomycin, diflucan, meropenem - finish pneumocystis treatment - f/u on cultures for fevers - s/p trach - bactrim pcp prophylaxis 2) leukocytosis better, monitor labs and chest x-ray, no fevers, no pressors 3) diarrhea but on stool softeners 4) weaning per pulmonary medicine 5) icu supportive care, vent support 6) skin care per protocol 7) d/w Dr. Meredith Subjective Constitutional: Reports: fever, other - on vent, more alert, no pressors HEENT: Reports: congestion Respiratory: Reports: shortness of breath Gastrointestinal/Abdominal: Denies: nausea, vomiting Genitourinary: Reports: other - + smith Allergies: Coded Allergies: No Known Allergies (Unverified , 02/05/13) Objective Vital Signs Last 24 Hour Vital Signs Date Time Temp Pulse Resp B/P (MAP) Pulse Ox O2 Delivery O2 Flow Rate FiO2 03/03/19 11:10 79 26 40 03/03/19 10:00 72 24 139/48 (78) 100 03/03/19 10:00 24 Mechanical Ventilator 40 03/03/19 09:23 100.8 03/03/19 09:04 77 26 40 03/03/19 09:00 24 Mechanical Ventilator 23 03/03/19 09:00 88 24 153/59 (90) 94 03/03/19 08:42 74 137/50 03/03/19 08:41 98 137/50 03/03/19 08:00 40 03/03/19 08:00 101.0 97 23 137/50 (79) 96 03/03/19 08:00 23 Mechanical Ventilator 40 03/03/19 08:00 Mechanical Ventilator Mechanical Ventilator 03/03/19 07:34 84 26 99 Mechanical Ventilator 40 03/03/19 07:16 74 24 99 Mechanical Ventilator 40 03/03/19 07:14 74 24 40 03/03/19 07:00 20 Mechanical Ventilator 40 03/03/19 07:00 71 24 137/50 (79) 98 03/03/19 06:40 20 Mechanical Ventilator 40 03/03/19 06:00 73 26 139/46 (77) 98 03/03/19 05:40 23 Mechanical Ventilator 40 03/03/19 05:22 159/61 03/03/19 05:21 159/61 03/03/19 05:07 80 26 40 03/03/19 05:00 80 24 159/61 (93) 98 03/03/19 04:52 29 Mechanical Ventilator 40 03/03/19 04:40 24 Mechanical Ventilator 40 03/03/19 04:00 98.7 80 28 159/62 (94) 92 03/03/19 04:00 50 03/03/19 04:00 78 03/03/19 04:00 Mechanical Ventilator Mechanical Ventilator 03/03/19 03:40 22 Mechanical Ventilator 40 03/03/19 03:00 88 24 158/74 (102) 99 03/03/19 02:59 89 25 40 03/03/19 02:40 20 Mechanical Ventilator 40 03/03/19 02:00 82 24 159/61 (93) 98 03/03/19 01:40 22 Mechanical Ventilator 40 03/03/19 01:33 80 27 99 Mechanical Ventilator 40 03/03/19 01:14 81 27 98 Mechanical Ventilator 40 03/03/19 01:12 81 25 40 03/03/19 01:00 74 24 153/76 (101) 98 03/03/19 00:40 24 Trach Collar 40 03/03/19 00:10 24 Trach Collar 40 03/03/19 00:00 99.3 68 23 134/57 (82) 98 03/03/19 00:00 Mechanical Ventilator Mechanical Ventilator 03/02/19 23:01 68 24 40 03/02/19 23:00 68 24 143/55 (84) 99 03/02/19 22:11 168/61 03/02/19 22:11 168/61 03/02/19 22:00 80 23 155/58 (90) 98 03/02/19 21:01 73 24 50 03/02/19 21:00 80 23 155/58 (90) 98 03/02/19 20:22 80 146/51 03/02/19 20:00 83 03/02/19 20:00 98.7 81 25 146/51 (82) 99 03/02/19 20:00 50 03/02/19 20:00 Mechanical Ventilator Mechanical Ventilator 03/02/19 20:00 80 23 155/58 (90) 98 03/02/19 20:00 24 Endotracheal Tube 40 03/02/19 19:20 78 30 98 Mechanical Ventilator 50 03/02/19 19:05 82 26 98 Mechanical Ventilator 50 03/02/19 19:01 81 25 50 03/02/19 19:00 24 Mechanical Ventilator 40 03/02/19 19:00 80 23 155/58 (90) 98 03/02/19 18:10 97.6 03/02/19 18:00 81 25 150/56 (87) 99 03/02/19 18:00 24 Mechanical Ventilator 40 03/02/19 17:40 24 Mechanical Ventilator 40 03/02/19 17:06 80 24 50 03/02/19 17:01 24 Mechanical Ventilator 40 03/02/19 17:00 79 25 139/79 (99) 98 03/02/19 16:00 50 03/02/19 16:00 76 03/02/19 16:00 24 Mechanical Ventilator 40 03/02/19 16:00 Mechanical Ventilator Mechanical Ventilator 03/02/19 16:00 98.4 77 26 144/61 (88) 99 03/02/19 15:00 75 24 142/51 (81) 98 03/02/19 15:00 22 Mechanical Ventilator 40 03/02/19 14:58 76 25 50 03/02/19 14:20 153/59 03/02/19 14:00 24 Mechanical Ventilator 40 03/02/19 14:00 76 24 153/59 (90) 97 03/02/19 13:47 71 24 97 Mechanical Ventilator 40 03/02/19 13:39 70 25 40 03/02/19 13:38 70 24 98 Mechanical Ventilator 40 03/02/19 13:05 72 18 99 03/02/19 13:00 98.6 72 135/50 (78) 03/02/19 13:00 24 Mechanical Ventilator 40 Height (Feet): 6 Height (Inches): 0.00 Weight (Pounds): 251 HEENT: normocephalic, atraumatic, anicteric Respiratory/Chest: crackles/rales, rhonchi - bilaterally Cardiovascular: normal rate, regular rhythm Abdomen: normal bowel sounds, soft, non tender Objective Chest x-ray - 02/10/19 - COMPARISON: Chest radiograph on 02/09/2019 FINDINGS: Hardware: Endotracheal tube terminates in the region of the mid thoracic trachea. Enteric tube courses past the diaphragm and out of the field of view. Lungs/pleura: Slightly decreased but persistent patchy consolidations in the right lung. Slightly decreased left perihilar opacities/consolidations. Possible small bilateral pleural effusions. Heart/mediastinum: Stable mild enlargement of the cardiomediastinal silhouette. Soft tissues: Unremarkable. Bones: No acute fracture. Degenerative changes of the visualized right acromioclavicular joint. Degenerative changes of the spine. Upper abdomen: Normal. 02/11/19 - chest x-ray - IMPRESSION: Slightly decreased but persistent patchy consolidations in the right lung. Slightly decreased left perihilar opacities. Findings may IMPRESSION: 1. No significant change in the interstitial and alveolar opacities in bilateral lungs. 2. Possible small bilateral pleural effusions, unchanged. represent infectious/inflammatory process and/or pulmonary edema. Possible small bilateral pleural effusions. 02/16/19 - chest x-ray - Impression: Worsening of aeration with increasing interstitial and bilateral predominantly perihilar airspace disease. Findings likely related to worsening CHF/pulmonary edema. Superimposed pneumonia to be excluded clinically. Follow-up recommended. Chest x-ray - 02/18/19 - COMPARISON: Chest radiograph on 02/16/2019 FINDINGS: Hardware: Endotracheal tube terminates in the region of the mid thoracic trachea. Enteric tube courses past the diaphragm and out of the field of view. Lungs/pleura: Slightly decreased but persistent hazy and interstitial opacities. Persistent small left pleural effusion. Heart/mediastinum: Stable mild enlargement of the cardiomediastinal silhouette. Soft tissues: Unremarkable. Bones: No acute fracture. Upper abdomen: Normal. IMPRESSION: Slightly decreased but persistent changes suggesting pulmonary edema. Component of infectious/inflammatory process is not excluded. Persistent small left pleural effusion. Chest x-ray - 02/20/19 - Procedure: XRAY Chest 1v Indication: Dyspnea Comparison: Earlier same day A single view chest radiograph was obtained. Findings: Intubation noted. The endotracheal tube is in good position about 3 cm above the christal. Cardiomegaly again noted. Moderate pulmonary vascular congestion demonstrated. IMPRESSION: Endotracheal tube in good position. CHF Chest x-ray - - FINDINGS: The tip of the endotracheal tube is appropriately positioned, projecting between the clavicular heads. The sidehole of the enteric tube projects within the stomach. Extensive bilateral consolidation is again noted. Favor multilobar pneumonia. Heart size is borderline, but likely exaggerated by portable technique. No pneumothorax. Bony degenerative changes. IMPRESSION: Extensive airspace consolidation, similar to prior. Favor multilobar pneumonia. Appropriately positioned tubes. Chest x-ray - 02/24/19 - IMPRESSION: No significant interval change compared to the prior chest x-ray. Cardiomegaly with diffuse interstitial and alveolar opacities, which may represent pulmonary edema versus pneumonia. Chest x-ray - 02/26/19 - IMPRESSION: No significant interval change compared to the prior chest x-ray. Cardiomegaly with diffuse interstitial and alveolar opacities, which may represent pulmonary edema versus pneumonia. Microbiology Date/Time Source Procedure Growth Status 03/01/19 20:00 Sputum Induced Gram Stain - Final Resulted 03/01/19 20:00 Sputum Induced Sputum Culture - Preliminary NO GROWTH Resulted Laboratory Tests Test 03/02/19 17:50 03/03/19 08:30 White Blood Count 3.4 K/UL (4.8-10.8) L 3.1 K/UL (4.8-10.8) L Red Blood Count 2.84 M/UL (4.70-6.10) L 2.87 M/UL (4.70-6.10) L Hemoglobin 8.1 G/DL (14.2-18.0) L 8.4 G/DL (14.2-18.0) L Hematocrit 25.1 % (42.0-52.0) L 24.9 % (42.0-52.0) L Mean Corpuscular Volume 88 FL (80-99) 87 FL (80-99) Mean Corpuscular Hemoglobin 28.5 PG (27.0-31.0) 29.2 PG (27.0-31.0) Mean Corpuscular Hemoglobin Concent 32.3 G/DL (32.0-36.0) 33.8 G/DL (32.0-36.0) Red Cell Distribution Width 16.1 % (11.6-14.8) H 16.9 % (11.6-14.8) H Platelet Count 94 K/UL (150-450) L 106 K/UL (150-450) L Mean Platelet Volume 6.2 FL (6.5-10.1) L 5.7 FL (6.5-10.1) L Neutrophils (%) (Auto) % (45.0-75.0) % (45.0-75.0) Lymphocytes (%) (Auto) % (20.0-45.0) % (20.0-45.0) Monocytes (%) (Auto) % (1.0-10.0) % (1.0-10.0) Eosinophils (%) (Auto) % (0.0-3.0) % (0.0-3.0) Basophils (%) (Auto) % (0.0-2.0) % (0.0-2.0) Differential Total Cells Counted 100 100 Neutrophils % (Manual) 73 % (45-75) 76 % (45-75) H Lymphocytes % (Manual) 15 % (20-45) L 15 % (20-45) L Monocytes % (Manual) 9 % (1-10) 6 % (1-10) Eosinophils % (Manual) 2 % (0-3) 3 % (0-3) Basophils % (Manual) 1 % (0-2) 0 % (0-2) Band Neutrophils 0 % (0-8) 0 % (0-8) Platelet Estimate Decreased L Decreased L Platelet Morphology Normal Normal Hypochromasia 1+ Anisocytosis 1+ 1+ Sodium Level 139 MMOL/L (136-145) 140 MMOL/L (136-145) Potassium Level 3.4 MMOL/L (3.5-5.1) L 3.9 MMOL/L (3.5-5.1) Chloride Level 104 MMOL/L (98-107) 107 MMOL/L (98-107) Carbon Dioxide Level 26 MMOL/L (21-32) 28 MMOL/L (21-32) Anion Gap 9 mmol/L (5-15) 5 mmol/L (5-15) Blood Urea Nitrogen 47 mg/dL (7-18) H 43 mg/dL (7-18) H Creatinine 2.0 MG/DL (0.55-1.30) H 1.8 MG/DL (0.55-1.30) H Estimat Glomerular Filtration Rate 34.4 mL/min (>60) 38.8 mL/min (>60) Glucose Level 185 MG/DL (74-106) H 247 MG/DL (74-106) H Calcium Level 8.5 MG/DL (8.5-10.1) 8.8 MG/DL (8.5-10.1) Total Bilirubin 0.5 MG/DL (0.2-1.0) Aspartate Amino Transf (AST/SGOT) 69 U/L (15-37) H Alanine Aminotransferase (ALT/SGPT) 66 U/L (12-78) Alkaline Phosphatase 114 U/L (46-116) Total Protein 4.9 G/DL (6.4-8.2) L Albumin 2.2 G/DL (3.4-5.0) L Globulin 2.7 g/dL Albumin/Globulin Ratio 0.8 (1.0-2.7) L Current Medications Medications (Trade) Dose Ordered Sig/Marquis Route PRN Reason Start Time Stop Time Status Last Admin Dose Admin Acetaminophen (Tylenol) 650 mg Q4H PRN ORAL Mild Pain (Pain Scale 1-3) 02/07/19 11:15 03/08/19 17:29 03/03/19 08:53 Acetaminophen/ Butalbital/ Caffeine (Fioricet) 1 tab Q8H PRN ORAL For Headache 02/08/19 17:15 03/10/19 17:14 Albuterol/ Ipratropium (Albuterol/ Ipratropium) 3 ml Q4H PRN HHN Shortness of Breath 02/26/19 12:30 03/03/19 12:29 Albuterol/ Ipratropium (Albuterol/ Ipratropium) 3 ml Q6HRT HHN 02/26/19 13:00 03/03/19 12:59 03/03/19 07:16 Amlodipine Besylate (Norvasc) 10 mg DAILY NG 02/15/19 09:00 03/14/19 15:59 03/03/19 08:41 Artificial Tears (Lacri-Lube) 1 applic AC+HS BOTH EYES 02/18/19 06:30 03/20/19 06:29 03/03/19 06:21 Bisacodyl (Dulcolax) 5 mg DAILYPRN PRN ORAL Constipation 02/08/19 17:15 03/10/19 17:14 02/25/19 12:45 Chlorhexidine Gluconate (Jessy-Hex 2%) 1 applic DAILY@2000 TOPIC 02/25/19 20:00 03/27/19 19:59 03/02/19 20:22 Clonidine HCl (Catapres tab) 0.2 mg EVERY 8 HOURS NG 03/02/19 22:00 03/19/19 13:59 03/03/19 05:22 Dextrose (Dextrose 50%) 25 ml Q30M PRN IV Hypoglycemia 03/01/19 07:15 03/31/19 07:14 Dextrose (Dextrose 50%) 50 ml Q30M PRN IV Hypoglycemia 03/01/19 07:15 03/31/19 07:14 Docusate Sodium (Colace) 100 mg TID GT 02/12/19 18:00 03/12/19 08:59 03/03/19 08:40 Fentanyl Citrate 2500 mcg/Sodium Chloride 250 ml @ 0 mls/hr Q24H IV 03/03/19 00:00 03/10/19 00:00 03/03/19 04:52 Fluconazole/ Sodium Chloride 100 ml @ 100 mls/hr Q24H IV 02/26/19 18:00 03/05/19 17:59 03/02/19 17:02 Furosemide (Lasix) 40 mg DAILY IV 03/01/19 09:00 03/31/19 08:59 03/03/19 08:42 Guaifenesin (Mucinex ER) 600 mg TWICE A DAY ORAL 02/07/19 18:00 03/09/19 08:59 03/03/19 08:42 Heparin Sodium (Porcine) (Heparin 5000 units/ml) 5,000 units EVERY 12 HOURS SUBQ 02/26/19 21:00 03/28/19 20:59 02/28/19 21:05 Hydralazine HCl (Apresoline) 10 mg Q4H PRN IV bp over 165 syst 02/17/19 10:15 03/19/19 10:14 02/19/19 14:45 Hydralazine HCl (Apresoline) 50 mg Q8HR NG 02/22/19 14:00 03/21/19 21:59 03/03/19 05:21 Insulin Aspart (NovoLOG) EVERY 6 HOURS SUBQ 02/26/19 12:00 03/28/19 11:59 03/03/19 05:23 Insulin Detemir (Levemir) 10 units Q12HR SUBQ 03/03/19 21:00 04/01/19 20:59 Lorazepam (Ativan 2mg/ml 1ml) 2 mg Q2H PRN IV For Anxiety 02/27/19 13:48 03/06/19 13:47 03/03/19 02:46 Meropenem 1 gm/ Sodium Chloride 55 ml @ 110 mls/hr Q12HR IVPB 03/03/19 21:00 03/08/19 20:59 Metoclopramide HCl (Reglan) 5 mg Q8H IVP 02/26/19 09:00 03/28/19 08:59 03/03/19 08:43 Metolazone (Zaroxolyn) 10 mg DAILY NG 02/19/19 10:00 03/21/19 09:59 03/03/19 08:40 Metoprolol Tartrate (Lopressor) 100 mg Q12HR ORAL 02/22/19 21:00 03/08/19 20:59 03/03/19 08:42 Midazolam HCl (Versed 2mg/2ml vial) 1 mg Q2H PRN IVP Agitation 02/13/19 08:45 03/15/19 08:44 02/27/19 11:05 Neomycin/ Polymyxin/ Dexamethasone (Maxitrol Opth Oint) 1 applic BEDTIME BOTH EYES 02/18/19 21:00 03/20/19 20:59 03/02/19 20:24 Nitroglycerin (Ntg) 0.4 mg Q5M PRN SL Prn Chest Pain 02/07/19 11:00 03/08/19 17:29 02/08/19 07:42 Ondansetron HCl (Zofran) 4 mg Q6H PRN IVP Nausea & Vomiting 02/07/19 11:15 03/08/19 11:14 02/09/19 00:58 Pantoprazole (Protonix) 40 mg DAILY IVP 02/26/19 09:00 03/24/19 20:59 03/03/19 08:42 Patient Own Medication (Patient's Own Med) 1 ea BID ORAL 02/07/19 18:00 03/09/19 17:59 03/03/19 08:39 Patient Own Medication (Patient's Own Med) 1 ea Q48H ORAL 02/18/19 09:00 03/20/19 08:59 03/02/19 09:38 Patient Own Medication (Patient's Own Med) 2 ea DAILY ORAL 02/08/19 09:00 03/10/19 08:59 03/03/19 08:39 Polyethylene Glycol (Miralax) 17 gm BEDTIME ORAL 02/08/19 21:00 03/10/19 20:59 03/02/19 20:22 Sennosides (Senokot) 8.6 mg DAILY ORAL 02/13/19 12:00 03/15/19 11:59 03/03/19 08:41 Vancomycin HCl (Vanco rx to dose) 1 ea DAILY PRN MISC Per rx protocol 03/03/19 11:00 04/02/19 10:59 Vancomycin HCl/ Dextrose 275 ml @ 183.333 mls/hr ONCE IVPB 03/03/19 12:00 03/03/19 14:00 Russ Tony MD Mar 03, 2019 12:23
[2019-03-03 12:54] LABS: APPEARANCE,URINE SLIGHTLY CLOUDY; BILIRUBIN, URINE NEGATIVE (NEGATIVE); COLOR,URINE PALE YELLOW; GLUCOSE, URINE (UA) NEGATIVE (NEGATIVE); KETONES,URINE NEGATIVE (NEGATIVE); LEUKOCYTE ESTERASE ,URINE NEGATIVE (NEGATIVE); NITRITE,URINE NEGATIVE (NEGATIVE); PH,URINE 5 (4.5-8.0); PROTEIN,URINE 2+ (NEGATIVE); UROBILINOGEN,URINE NORMAL MG/DL (0.0-1.0)
--- NOTE | 2019-03-03 13:00 | NUR ---
NURSE NOTES: PATIENT KEPT CLEAN AND DRY. TURNED AND REPOSITIONED PATIENT. SUCTIONED SECRETIONS. WILL CONTINUE TO MONITOR.
--- NOTE | 2019-03-03 14:18 | Pulmonolgy Critical Care Note ---
Critical Care - Asmt/Plan Problems: (1) Endotracheally intubated (2) Acute hypoxemic respiratory failure (3) Pneumonia (4) NSTEMI (non-ST elevated myocardial infarction) (5) AIDS (6) HIV disease (7) Hypertension (8) MDD (major depressive disorder), recurrent episode, moderate (9) Anemia (10) CKD (chronic kidney disease) (11) History of stroke (12) Diabetes (13) Anxiety (14) Malignant hypertension (15) Occult blood positive stool Assessment/Plan: VDRF, extubated 02/19, re-intubated 02/20, trach 03/02 Hemoptysis, hematemesis ARDS Acute respiratory failure B pulmonary infiltrates, ? multilobar CAP vs atypical infection vs other ? PJP AIDS (CD4 191) NSTEMI H/O prior CVA HTN HL DM with uncontrolled BS ISH on CKD Anemia, FOBT + PLAN: Continue ventilatory support/settings reviewed Daily SBT Keep PEEP 5, titrate down FiO2 to keep SaO2 > 90% RTC and PRN HHN's Continue Abx & flucon per ID Off steroids Monitor volumes and renal function --> D/W Tamara Rachel, continue Zaroxyln 10 and lasix 40 IV qDaily - so far renal fxn improving with diuresis F/U cards recs: will need further ischemia eval/cath once stabilized DVT Px: Hep SQ Monitor for bleeding, F/U GI recs, transfuse PRN Hb < 7 F/U ENDO recs TF's as celestino, plan for PEG tuesday FC, continue to discuss GOC D/W RN and RT @ bedside CCT 35 Critical Care - Objective Last 24 Hour Vital Signs Date Time Temp Pulse Resp B/P (MAP) Pulse Ox O2 Delivery O2 Flow Rate FiO2 03/03/19 13:42 85 28 100 Mechanical Ventilator 40 03/03/19 13:42 85 28 100 Mechanical Ventilator 40 03/03/19 13:01 152/125 03/03/19 13:01 152/125 03/03/19 13:00 85 28 40 03/03/19 12:45 84 19 152/125 (134) 100 03/03/19 12:30 86 22 152/125 (134) 100 03/03/19 12:15 81 21 152/125 (134) 99 03/03/19 12:00 81 03/03/19 12:00 40 03/03/19 12:00 19 Mechanical Ventilator 40 03/03/19 12:00 Mechanical Ventilator Mechanical Ventilator 03/03/19 12:00 98.4 85 19 152/125 (134) 99 03/03/19 11:10 79 26 40 03/03/19 11:00 72 24 140/49 (79) 100 03/03/19 11:00 24 Mechanical Ventilator 40 03/03/19 10:00 72 24 139/48 (78) 100 03/03/19 10:00 24 Mechanical Ventilator 40 03/03/19 09:23 100.8 03/03/19 09:04 77 26 40 03/03/19 09:00 24 Mechanical Ventilator 23 03/03/19 09:00 88 24 153/59 (90) 94 03/03/19 08:42 74 137/50 03/03/19 08:41 98 137/50 03/03/19 08:00 40 03/03/19 08:00 101.0 97 23 137/50 (79) 96 03/03/19 08:00 23 Mechanical Ventilator 40 03/03/19 08:00 80 03/03/19 08:00 Mechanical Ventilator Mechanical Ventilator 03/03/19 07:34 84 26 99 Mechanical Ventilator 40 03/03/19 07:16 74 24 99 Mechanical Ventilator 40 03/03/19 07:14 74 24 40 03/03/19 07:00 20 Mechanical Ventilator 40 03/03/19 07:00 71 24 137/50 (79) 98 03/03/19 06:40 20 Mechanical Ventilator 40 03/03/19 06:00 73 26 139/46 (77) 98 03/03/19 05:40 23 Mechanical Ventilator 40 03/03/19 05:22 159/61 03/03/19 05:21 159/61 03/03/19 05:07 80 26 40 03/03/19 05:00 80 24 159/61 (93) 98 03/03/19 04:52 29 Mechanical Ventilator 40 03/03/19 04:40 24 Mechanical Ventilator 40 03/03/19 04:00 98.7 80 28 159/62 (94) 92 03/03/19 04:00 50 03/03/19 04:00 78 03/03/19 04:00 Mechanical Ventilator Mechanical Ventilator 03/03/19 03:40 22 Mechanical Ventilator 40 03/03/19 03:00 88 24 158/74 (102) 99 03/03/19 02:59 89 25 40 03/03/19 02:40 20 Mechanical Ventilator 40 03/03/19 02:00 82 24 159/61 (93) 98 03/03/19 01:40 22 Mechanical Ventilator 40 03/03/19 01:33 80 27 99 Mechanical Ventilator 40 03/03/19 01:14 81 27 98 Mechanical Ventilator 40 03/03/19 01:12 81 25 40 03/03/19 01:00 74 24 153/76 (101) 98 03/03/19 00:40 24 Trach Collar 40 03/03/19 00:10 24 Trach Collar 40 03/03/19 00:00 99.3 68 23 134/57 (82) 98 03/03/19 00:00 Mechanical Ventilator Mechanical Ventilator 03/02/19 23:01 68 24 40 03/02/19 23:00 68 24 143/55 (84) 99 03/02/19 22:11 168/61 03/02/19 22:11 168/61 03/02/19 22:00 80 23 155/58 (90) 98 03/02/19 21:01 73 24 50 03/02/19 21:00 80 23 155/58 (90) 98 03/02/19 20:22 80 146/51 03/02/19 20:00 83 03/02/19 20:00 98.7 81 25 146/51 (82) 99 03/02/19 20:00 50 03/02/19 20:00 Mechanical Ventilator Mechanical Ventilator 03/02/19 20:00 80 23 155/58 (90) 98 03/02/19 20:00 24 Endotracheal Tube 40 03/02/19 19:20 78 30 98 Mechanical Ventilator 50 03/02/19 19:05 82 26 98 Mechanical Ventilator 50 03/02/19 19:01 81 25 50 03/02/19 19:00 24 Mechanical Ventilator 40 03/02/19 19:00 80 23 155/58 (90) 98 03/02/19 18:10 97.6 03/02/19 18:00 81 25 150/56 (87) 99 03/02/19 18:00 24 Mechanical Ventilator 40 03/02/19 17:40 24 Mechanical Ventilator 40 03/02/19 17:06 80 24 50 03/02/19 17:01 24 Mechanical Ventilator 40 03/02/19 17:00 79 25 139/79 (99) 98 03/02/19 16:00 50 03/02/19 16:00 76 03/02/19 16:00 24 Mechanical Ventilator 40 03/02/19 16:00 Mechanical Ventilator Mechanical Ventilator 03/02/19 16:00 98.4 77 26 144/61 (88) 99 03/02/19 15:00 75 24 142/51 (81) 98 03/02/19 15:00 22 Mechanical Ventilator 40 03/02/19 14:58 76 25 50 03/02/19 14:20 153/59 Status: sedated - traced Condition: improving HEENT: atraumatic, normocephalic Neck: trach Lungs: rales Heart: HR/BP stable Abdomen: soft, non-tender, active bowel sounds Extremities: edema - 1+, cyanosis - no, clubbing - no Micro: Microbiology Date/Time Source Procedure Growth Status 03/01/19 20:00 Sputum Induced Gram Stain - Final Resulted 03/01/19 20:00 Sputum Induced Sputum Culture - Preliminary NO GROWTH Resulted Accucheck: 278 Blood Sugars: BS not controlled Critical Care - Subjective ROS Limited/Unobtainable: Yes ICU Day: 25 Intubation Day: trach 03/02 Interval Events: S/P trach RT attempt SIMV stopped 2/2 agitation CXR with PVC CR better with diuresis Condition: stable IV Access: PICC EKG Rhythm: Sinus Rhythm FI02: 40 Vent Support Breath Rate: 24 Vent Support Mode: AC Vent Tidal Volume: 550 Sputum Amount: Small PEEP: 5.0 PIP: 24 Secretions: Small Fluids: SLIV Drips: Fent Tube Feeding Amount: 43 I&O: Intake and Output 03/02/19 03/03/19 19:00 07:00 Intake Total 1120 ml 1011.5 ml Output Total 2070 ml 1870 ml Balance -950 ml -858.5 ml IV Total 905 ml 495.5 ml Tube Feeding 215 ml 516 ml Output Urine Total 2070 ml 1750 ml Stool Total 120 ml Subjective: CONRAD CXR: PVC ET-Tube: 7.5 ET Position: 24 Labs: Laboratory Tests Test 03/02/19 17:50 03/03/19 08:30 03/03/19 11:00 White Blood Count 3.4 K/UL (4.8-10.8) L 3.1 K/UL (4.8-10.8) L Red Blood Count 2.84 M/UL (4.70-6.10) L 2.87 M/UL (4.70-6.10) L Hemoglobin 8.1 G/DL (14.2-18.0) L 8.4 G/DL (14.2-18.0) L Hematocrit 25.1 % (42.0-52.0) L 24.9 % (42.0-52.0) L Mean Corpuscular Volume 88 FL (80-99) 87 FL (80-99) Mean Corpuscular Hemoglobin 28.5 PG (27.0-31.0) 29.2 PG (27.0-31.0) Mean Corpuscular Hemoglobin Concent 32.3 G/DL (32.0-36.0) 33.8 G/DL (32.0-36.0) Red Cell Distribution Width 16.1 % (11.6-14.8) H 16.9 % (11.6-14.8) H Platelet Count 94 K/UL (150-450) L 106 K/UL (150-450) L Mean Platelet Volume 6.2 FL (6.5-10.1) L 5.7 FL (6.5-10.1) L Neutrophils (%) (Auto) % (45.0-75.0) % (45.0-75.0) Lymphocytes (%) (Auto) % (20.0-45.0) % (20.0-45.0) Monocytes (%) (Auto) % (1.0-10.0) % (1.0-10.0) Eosinophils (%) (Auto) % (0.0-3.0) % (0.0-3.0) Basophils (%) (Auto) % (0.0-2.0) % (0.0-2.0) Differential Total Cells Counted 100 100 Neutrophils % (Manual) 73 % (45-75) 76 % (45-75) H Lymphocytes % (Manual) 15 % (20-45) L 15 % (20-45) L Monocytes % (Manual) 9 % (1-10) 6 % (1-10) Eosinophils % (Manual) 2 % (0-3) 3 % (0-3) Basophils % (Manual) 1 % (0-2) 0 % (0-2) Band Neutrophils 0 % (0-8) 0 % (0-8) Platelet Estimate Decreased L Decreased L Platelet Morphology Normal Normal Hypochromasia 1+ Anisocytosis 1+ 1+ Sodium Level 139 MMOL/L (136-145) 140 MMOL/L (136-145) Potassium Level 3.4 MMOL/L (3.5-5.1) L 3.9 MMOL/L (3.5-5.1) Chloride Level 104 MMOL/L (98-107) 107 MMOL/L (98-107) Carbon Dioxide Level 26 MMOL/L (21-32) 28 MMOL/L (21-32) Anion Gap 9 mmol/L (5-15) 5 mmol/L (5-15) Blood Urea Nitrogen 47 mg/dL (7-18) H 43 mg/dL (7-18) H Creatinine 2.0 MG/DL (0.55-1.30) H 1.8 MG/DL (0.55-1.30) H Estimat Glomerular Filtration Rate 34.4 mL/min (>60) 38.8 mL/min (>60) Glucose Level 185 MG/DL (74-106) H 247 MG/DL (74-106) H Calcium Level 8.5 MG/DL (8.5-10.1) 8.8 MG/DL (8.5-10.1) Total Bilirubin 0.5 MG/DL (0.2-1.0) Aspartate Amino Transf (AST/SGOT) 69 U/L (15-37) H Alanine Aminotransferase (ALT/SGPT) 66 U/L (12-78) Alkaline Phosphatase 114 U/L (46-116) Total Protein 4.9 G/DL (6.4-8.2) L Albumin 2.2 G/DL (3.4-5.0) L Globulin 2.7 g/dL Albumin/Globulin Ratio 0.8 (1.0-2.7) L Urine Color Pale yellow Urine Appearance Slightly cloudy Urine pH 5 (4.5-8.0) Urine Specific [place] 1.005 (1.005-1.035) Urine Protein 2+ (NEGATIVE) H Urine Glucose (UA) Negative (NEGATIVE) Urine Ketones Negative (NEGATIVE) Urine Blood 5+ (NEGATIVE) H Urine Nitrite Negative (NEGATIVE) Urine Bilirubin Negative (NEGATIVE) Urine Urobilinogen Normal MG/DL (0.0-1.0) Urine Leukocyte Esterase Negative (NEGATIVE) Urine RBC 60-80 /HPF (0 - 0) H Urine WBC 0 /HPF (0 - 0) Urine Squamous Epithelial Cells Occasional /LPF Urine Bacteria None /HPF (NONE) Brett Meredith MD Mar 03, 2019 14:18
--- NOTE | 2019-03-03 14:30 | NUR ---
NURSE NOTES: PATIENT'S NOTED TO BE AGITATED. ATIVAN WAS GIVEN. MD'S AWARE. WILL CONTINUE TO MONITOR.
--- NOTE | 2019-03-03 14:42 | Cardiac Electrophysiology PN ---
Assessment/Plan Assessment/Plan 1. Non-ST elevation myocardial infarction with peak troponin of more than 10, down to 3.[address]-T wave abnormalities. Continue Lipitor, Imdur and metoprolol Not a candidate for Cardiac catheterization 2. Hypertension. Metoprolol 100 bid, Isordil 20 q6 , Clonidine 0.1 bid, Lasix 40 iv daily, Metolazone 5, Norvasc 10 daily and hydralazine 50 q 8 hr On Clonidine 0.2 q 8hrs 3. Respiratory failure due to Multilobar Pneumonia. Extubated 02/19/19. Reintubated 02/20/19 S/P Tracheostomy 03/02/19 4. Hyperlipidemia. On Lipitor. 5. Human immunodeficiency virus. On anti-retroviral therapy with undetectable viral load. 6. ARF Cr 3 7. Bleeding from ETT and NG tube. S/P PRBC. Off Aspirin and Lovenox No further bleeding 8. Dysphagia. PEG Tuesday pending CANDELARIO RN Subjective Subjective In ICU on the vent via Tracheostomy Objective Last 24 Hour Vital Signs Date Time Temp Pulse Resp B/P (MAP) Pulse Ox O2 Delivery O2 Flow Rate FiO2 03/03/19 14:16 17 40 03/03/19 13:42 85 28 100 Mechanical Ventilator 40 03/03/19 13:42 85 28 100 Mechanical Ventilator 40 03/03/19 13:01 152/125 03/03/19 13:01 152/125 03/03/19 13:00 85 28 40 03/03/19 12:45 84 19 152/125 (134) 100 03/03/19 12:30 86 22 152/125 (134) 100 03/03/19 12:15 81 21 152/125 (134) 99 03/03/19 12:00 81 03/03/19 12:00 40 03/03/19 12:00 19 Mechanical Ventilator 40 03/03/19 12:00 Mechanical Ventilator Mechanical Ventilator 03/03/19 12:00 98.4 85 19 152/125 (134) 99 03/03/19 11:10 79 26 40 03/03/19 11:00 72 24 140/49 (79) 100 03/03/19 11:00 24 Mechanical Ventilator 40 03/03/19 10:00 72 24 139/48 (78) 100 03/03/19 10:00 24 Mechanical Ventilator 40 03/03/19 09:23 100.8 03/03/19 09:04 77 26 40 03/03/19 09:00 24 Mechanical Ventilator 23 03/03/19 09:00 88 24 153/59 (90) 94 03/03/19 08:42 74 137/50 03/03/19 08:41 98 137/50 03/03/19 08:00 40 03/03/19 08:00 101.0 97 23 137/50 (79) 96 03/03/19 08:00 23 Mechanical Ventilator 40 03/03/19 08:00 80 03/03/19 08:00 Mechanical Ventilator Mechanical Ventilator 03/03/19 07:34 84 26 99 Mechanical Ventilator 40 03/03/19 07:16 74 24 99 Mechanical Ventilator 40 03/03/19 07:14 74 24 40 03/03/19 07:00 20 Mechanical Ventilator 40 03/03/19 07:00 71 24 137/50 (79) 98 03/03/19 06:40 20 Mechanical Ventilator 40 03/03/19 06:00 73 26 139/46 (77) 98 03/03/19 05:40 23 Mechanical Ventilator 40 03/03/19 05:22 159/61 03/03/19 05:21 159/61 03/03/19 05:07 80 26 40 03/03/19 05:00 80 24 159/61 (93) 98 03/03/19 04:52 29 Mechanical Ventilator 40 03/03/19 04:40 24 Mechanical Ventilator 40 03/03/19 04:00 98.7 80 28 159/62 (94) 92 03/03/19 04:00 50 03/03/19 04:00 78 03/03/19 04:00 Mechanical Ventilator Mechanical Ventilator 03/03/19 03:40 22 Mechanical Ventilator 40 03/03/19 03:00 88 24 158/74 (102) 99 03/03/19 02:59 89 25 40 03/03/19 02:40 20 Mechanical Ventilator 40 03/03/19 02:00 82 24 159/61 (93) 98 03/03/19 01:40 22 Mechanical Ventilator 40 03/03/19 01:33 80 27 99 Mechanical Ventilator 40 03/03/19 01:14 81 27 98 Mechanical Ventilator 40 03/03/19 01:12 81 25 40 03/03/19 01:00 74 24 153/76 (101) 98 03/03/19 00:40 24 Trach Collar 40 03/03/19 00:10 24 Trach Collar 40 03/03/19 00:00 99.3 68 23 134/57 (82) 98 03/03/19 00:00 Mechanical Ventilator Mechanical Ventilator 03/02/19 23:01 68 24 40 03/02/19 23:00 68 24 143/55 (84) 99 03/02/19 22:11 168/61 03/02/19 22:11 168/61 03/02/19 22:00 80 23 155/58 (90) 98 03/02/19 21:01 73 24 50 03/02/19 21:00 80 23 155/58 (90) 98 03/02/19 20:22 80 146/51 03/02/19 20:00 83 03/02/19 20:00 98.7 81 25 146/51 (82) 99 03/02/19 20:00 50 03/02/19 20:00 Mechanical Ventilator Mechanical Ventilator 03/02/19 20:00 80 23 155/58 (90) 98 03/02/19 20:00 24 Endotracheal Tube 40 03/02/19 19:20 78 30 98 Mechanical Ventilator 50 03/02/19 19:05 82 26 98 Mechanical Ventilator 50 03/02/19 19:01 81 25 50 03/02/19 19:00 24 Mechanical Ventilator 40 03/02/19 19:00 80 23 155/58 (90) 98 03/02/19 18:10 97.6 03/02/19 18:00 81 25 150/56 (87) 99 03/02/19 18:00 24 Mechanical Ventilator 40 03/02/19 17:40 24 Mechanical Ventilator 40 03/02/19 17:06 80 24 50 03/02/19 17:01 24 Mechanical Ventilator 40 03/02/19 17:00 79 25 139/79 (99) 98 03/02/19 16:00 50 03/02/19 16:00 76 03/02/19 16:00 24 Mechanical Ventilator 40 03/02/19 16:00 Mechanical Ventilator Mechanical Ventilator 03/02/19 16:00 98.4 77 26 144/61 (88) 99 03/02/19 15:00 75 24 142/51 (81) 98 03/02/19 15:00 22 Mechanical Ventilator 40 03/02/19 14:58 76 25 50 Intake and Output 03/02/19 03/03/19 19:00 07:00 Intake Total 1120 ml 1011.5 ml Output Total 2070 ml 1870 ml Balance -950 ml -858.5 ml IV Total 905 ml 495.5 ml Tube Feeding 215 ml 516 ml Output Urine Total 2070 ml 1750 ml Stool Total 120 ml Laboratory Tests Test 03/02/19 17:50 03/03/19 08:30 03/03/19 11:00 White Blood Count 3.4 K/UL (4.8-10.8) L 3.1 K/UL (4.8-10.8) L Red Blood Count 2.84 M/UL (4.70-6.10) L 2.87 M/UL (4.70-6.10) L Hemoglobin 8.1 G/DL (14.2-18.0) L 8.4 G/DL (14.2-18.0) L Hematocrit 25.1 % (42.0-52.0) L 24.9 % (42.0-52.0) L Mean Corpuscular Volume 88 FL (80-99) 87 FL (80-99) Mean Corpuscular Hemoglobin 28.5 PG (27.0-31.0) 29.2 PG (27.0-31.0) Mean Corpuscular Hemoglobin Concent 32.3 G/DL (32.0-36.0) 33.8 G/DL (32.0-36.0) Red Cell Distribution Width 16.1 % (11.6-14.8) H 16.9 % (11.6-14.8) H Platelet Count 94 K/UL (150-450) L 106 K/UL (150-450) L Mean Platelet Volume 6.2 FL (6.5-10.1) L 5.7 FL (6.5-10.1) L Neutrophils (%) (Auto) % (45.0-75.0) % (45.0-75.0) Lymphocytes (%) (Auto) % (20.0-45.0) % (20.0-45.0) Monocytes (%) (Auto) % (1.0-10.0) % (1.0-10.0) Eosinophils (%) (Auto) % (0.0-3.0) % (0.0-3.0) Basophils (%) (Auto) % (0.0-2.0) % (0.0-2.0) Differential Total Cells Counted 100 100 Neutrophils % (Manual) 73 % (45-75) 76 % (45-75) H Lymphocytes % (Manual) 15 % (20-45) L 15 % (20-45) L Monocytes % (Manual) 9 % (1-10) 6 % (1-10) Eosinophils % (Manual) 2 % (0-3) 3 % (0-3) Basophils % (Manual) 1 % (0-2) 0 % (0-2) Band Neutrophils 0 % (0-8) 0 % (0-8) Platelet Estimate Decreased L Decreased L Platelet Morphology Normal Normal Hypochromasia 1+ Anisocytosis 1+ 1+ Sodium Level 139 MMOL/L (136-145) 140 MMOL/L (136-145) Potassium Level 3.4 MMOL/L (3.5-5.1) L 3.9 MMOL/L (3.5-5.1) Chloride Level 104 MMOL/L (98-107) 107 MMOL/L (98-107) Carbon Dioxide Level 26 MMOL/L (21-32) 28 MMOL/L (21-32) Anion Gap 9 mmol/L (5-15) 5 mmol/L (5-15) Blood Urea Nitrogen 47 mg/dL (7-18) H 43 mg/dL (7-18) H Creatinine 2.0 MG/DL (0.55-1.30) H 1.8 MG/DL (0.55-1.30) H Estimat Glomerular Filtration Rate 34.4 mL/min (>60) 38.8 mL/min (>60) Glucose Level 185 MG/DL (74-106) H 247 MG/DL (74-106) H Calcium Level 8.5 MG/DL (8.5-10.1) 8.8 MG/DL (8.5-10.1) Total Bilirubin 0.5 MG/DL (0.2-1.0) Aspartate Amino Transf (AST/SGOT) 69 U/L (15-37) H Alanine Aminotransferase (ALT/SGPT) 66 U/L (12-78) Alkaline Phosphatase 114 U/L (46-116) Total Protein 4.9 G/DL (6.4-8.2) L Albumin 2.2 G/DL (3.4-5.0) L Globulin 2.7 g/dL Albumin/Globulin Ratio 0.8 (1.0-2.7) L Urine Color Pale yellow Urine Appearance Slightly cloudy Urine pH 5 (4.5-8.0) Urine Specific [place] 1.005 (1.005-1.035) Urine Protein 2+ (NEGATIVE) H Urine Glucose (UA) Negative (NEGATIVE) Urine Ketones Negative (NEGATIVE) Urine Blood 5+ (NEGATIVE) H Urine Nitrite Negative (NEGATIVE) Urine Bilirubin Negative (NEGATIVE) Urine Urobilinogen Normal MG/DL (0.0-1.0) Urine Leukocyte Esterase Negative (NEGATIVE) Urine RBC 60-80 /HPF (0 - 0) H Urine WBC 0 /HPF (0 - 0) Urine Squamous Epithelial Cells Occasional /LPF Urine Bacteria None /HPF (NONE) Microbiology Date/Time Source Procedure Growth Status 03/01/19 20:00 Sputum Induced Gram Stain - Final Resulted 03/01/19 20:00 Sputum Induced Sputum Culture - Preliminary NO GROWTH Resulted Objective HEAD AND NECK: No JVD. S/P tracheostomy with NG tube LUNGS: Coarse rhonchi. CARDIOVASCULAR: Regular S1 and S2 with no gallop or murmur. ABDOMEN: Soft. EXTREMITIES: 1 plus pitting edema. Murray Francois MD Mar 03, 2019 14:42
--- NOTE | 2019-03-03 16:24 | NUR ---
NURSE NOTES: PATIENT NOTED TO BE LIGHTLY SEDATED. TOLERATED VENT SETTINGS AND TUBE FEEDING. STILL ON FENTANYL DRIP FOLLOWING HOSPITAL PROTOCOL. WILL CONTINUE TO MONITOR.
--- NOTE | 2019-03-03 18:54 | NUR ---
NURSE NOTES: SPECIMEN FOR URINE CULTURE SENT TO LAB. FENTANYL STILL AT 250MCG/HR FOLLOWING HOSPITAL PROTOCOL. NO SIGNS OF DISTRESS OF THE MOMENT. WILL CONTINUE TO MONITOR.
--- NOTE | 2019-03-03 19:00 | NUR ---
HAND-OFF: Report given to Venus Hdez RN.
--- NOTE | 2019-03-03 19:30 | NUR ---
NURSE NOTES: Received pt in no acute distress, awake, alert non verbal secondary to trach. Calm,eyes opens spontaneously. Remains on the vent and tolerating current vent parameters; fiO2 .40, saturating 99%. Secretions minimal. Trach site clean, no bleeding noted. PICC on KATIE intact with Fentanyl gtt infusing at 250mcg/h, achieving a RASS-2. Skin sl flushed and warm, temp 100.1 axillary. NSR, BP stable; NGT to left nare intact; TF with Nepro continues at 83ml/h with 0 residuals. Rectal tube intact, draining liquid brown stools. FC patent, uriendark scott; no bleeding noted. Will continue to monitor VS and sedation status. Fall precautions in place
--- NOTE | 2019-03-03 20:15 | Neurology Progress Note ---
Interim History Interim History ROS Limited/Unobtainable: Yes Complaints: AMS Interim History more alert, able to mimic and track Objective Physical Exam Last Vital Signs Date Time Temp Pulse Resp B/P (MAP) Pulse Ox O2 Delivery O2 Flow Rate FiO2 03/03/19 20:05 84 03/03/19 20:05 40 03/03/19 20:02 Mechanical Ventilator Mechanical Ventilator 03/03/19 20:00 24 03/03/19 19:43 100 03/03/19 19:30 100.1 146/52 (83) 02/26/19 12:53 75.0 Laboratory Tests Test 03/03/19 08:30 03/03/19 11:00 White Blood Count 3.1 K/UL (4.8-10.8) L Red Blood Count 2.87 M/UL (4.70-6.10) L Hemoglobin 8.4 G/DL (14.2-18.0) L Hematocrit 24.9 % (42.0-52.0) L Mean Corpuscular Volume 87 FL (80-99) Mean Corpuscular Hemoglobin 29.2 PG (27.0-31.0) Mean Corpuscular Hemoglobin Concent 33.8 G/DL (32.0-36.0) Red Cell Distribution Width 16.9 % (11.6-14.8) H Platelet Count 106 K/UL (150-450) L Mean Platelet Volume 5.7 FL (6.5-10.1) L Neutrophils (%) (Auto) % (45.0-75.0) Lymphocytes (%) (Auto) % (20.0-45.0) Monocytes (%) (Auto) % (1.0-10.0) Eosinophils (%) (Auto) % (0.0-3.0) Basophils (%) (Auto) % (0.0-2.0) Differential Total Cells Counted 100 Neutrophils % (Manual) 76 % (45-75) H Lymphocytes % (Manual) 15 % (20-45) L Monocytes % (Manual) 6 % (1-10) Eosinophils % (Manual) 3 % (0-3) Basophils % (Manual) 0 % (0-2) Band Neutrophils 0 % (0-8) Platelet Estimate Decreased L Platelet Morphology Normal Anisocytosis 1+ Sodium Level 140 MMOL/L (136-145) Potassium Level 3.9 MMOL/L (3.5-5.1) Chloride Level 107 MMOL/L (98-107) Carbon Dioxide Level 28 MMOL/L (21-32) Anion Gap 5 mmol/L (5-15) Blood Urea Nitrogen 43 mg/dL (7-18) H Creatinine 1.8 MG/DL (0.55-1.30) H Estimat Glomerular Filtration Rate 38.8 mL/min (>60) Glucose Level 247 MG/DL (74-106) H Calcium Level 8.8 MG/DL (8.5-10.1) Urine Color Pale yellow Urine Appearance Slightly cloudy Urine pH 5 (4.5-8.0) Urine Specific [place] 1.005 (1.005-1.035) Urine Protein 2+ (NEGATIVE) H Urine Glucose (UA) Negative (NEGATIVE) Urine Ketones Negative (NEGATIVE) Urine Blood 5+ (NEGATIVE) H Urine Nitrite Negative (NEGATIVE) Urine Bilirubin Negative (NEGATIVE) Urine Urobilinogen Normal MG/DL (0.0-1.0) Urine Leukocyte Esterase Negative (NEGATIVE) Urine RBC 60-80 /HPF (0 - 0) H Urine WBC 0 /HPF (0 - 0) Urine Squamous Epithelial Cells Occasional /LPF Urine Bacteria None /HPF (NONE) General: well developed, well nourished, other Head: normocophalic, other Neck: no rigidity EENT: benign, other Neurologic Exam Mental Status: other Speech: other Language: other Cranial Nerve II: other Cranial Nerves III, IV, : other Cranial Nerve V: other Cranial Nerve VII: other Cranial Nerve VIII: other Cranial Nerve IX: other Cranial Nerve X: other Cranial Nerve XI: other Cranial Nerve XII: other Motor System: other Sensory: other Coordination: other Deep Tendon Reflexes: 0 bicep (L), 0 bicep (R), 0 tricep (L), 0 tricep (R), 0 brachioradialis (L), 0 brachioradialis (R), 0 knee (L), 0 knee (R), 0 ankle (L) , 0 ankle (R) Reflexes: mute plantar (L), mute plantar (R) Stance: other Gait: other Objective he is intubated and sedated. pupils are symmetric and reactive corneals present he withdraws to noxious stimuli without localizing. 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 (33) acute small R pontomedullary and left cerebellar peduncle strokes. 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
[2019-03-03] MEDS: Dyna-Hex 2% Top Sol 2oz TOPIC SCH (21:00)
[2019-03-03] MEDS ORDERED: Levemir Flexpen SUBQ SCH (21:00)
[2019-03-03] MEDS: Maxitrol Opth Oint 3.5gm BOTH EYES SCH (21:00)
[2019-03-03] MEDS: Miralax 17gm pkt ORAL SCH (21:01)
[2019-03-03] MEDS: Meropenem 1gm in NS 55ml IVPB SCH (21:01)
--- NOTE | 2019-03-03 22:00 | NUR ---
NURSE NOTES: Awake, alert but calm. Fentanyl gtt continues at 250mcg/h. VSS, No distress. Repositioned, suctioned
--- NOTE | 2019-03-03 23:30 | General Progress Note ---
Assessment/Plan Status: stable Assessment/Plan: 58 y Male admitted to the hospital due to fever, shortness of breath and chest pain. # Multilobar pneumonia in patient with HIV - Broad sp atbx started. Continue Zosyn, Vancomycin, Azithromycin, TM-SMX - Fluconazole per ID - Droplet precaution - Flu swab ordered. - Oxygen support, ventilatory support as not able to wean off ventilator due to agitation. Consider change of sedation agent from Fentanyl to Versed if indicated. - ID consult appreciated. Discussed today and monitor renal function as possibly change in creatinine due to TM-SMX -s/p PICC line, # Hypoxemic respiratory failure - Critical care follow up. Unable to wean off the ventilatior. - - s/p tracheostomy # Chest pain - EKG with bifascicular block RBB and LAFB, no ST changes. - Trend troponin x3 completed - ECHO completed with no WMA and preserved EF. Dr. Francois consulted. Consideration for outpatient cath vs possibly myocarditis due to underlying viral infection. No evidence of Takotsubo per TTE. - NGT prn - Pain control with morphine # HIV - Continue HARRT - VL is undetectable per patient report. T cell count > 400 - CD 4 count 191 # HTN - Resume home medication - Clonidine, Isordil added today. 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 Gasca for DIRECTOR STYLE - plan to remove femoral access after PICC placement - Lasix 40 IV x 1 today -monitor renal fct and fluid status DVT and GI ppx Full code A total of 35 mins of critical care time was spent on this patient, dealing with hypoxemic resp failure requiring continuous mechanical ventilation, reviewing telemetry data, discussion with bedside CAROUSEL ATTENDANT Subjective Date patient seen: Mar 03, 2019 ROS Limited/Unobtainable: No Allergies: Coded Allergies: No Known Allergies (Unverified , 02/05/13) Subjective Pt remains intubated and sedated, no acute overnight events, s/p trach 03/02/19 Objective Last 24 Hour Vital Signs Date Time Temp Pulse Resp B/P (MAP) Pulse Ox O2 Delivery O2 Flow Rate FiO2 03/03/19 22:13 144/54 03/03/19 22:12 144/54 03/03/19 22:00 78 24 144/54 (84) 98 03/03/19 21:30 92 22 153/76 (101) 98 03/03/19 21:25 82 23 40 03/03/19 21:01 86 138/52 03/03/19 21:00 87 22 145/50 (81) 98 03/03/19 20:30 82 24 138/52 (80) 98 03/03/19 20:05 84 03/03/19 20:05 40 03/03/19 20:02 Mechanical Ventilator Mechanical Ventilator 03/03/19 20:00 80 23 136/48 (77) 100 03/03/19 20:00 24 Mechanical Ventilator 40 03/03/19 19:53 86 24 100 Mechanical Ventilator 40 03/03/19 19:44 80 24 40 03/03/19 19:43 80 24 100 Mechanical Ventilator 40 03/03/19 19:30 100.1 78 23 146/52 (83) 99 03/03/19 19:00 23 Mechanical Ventilator 40 03/03/19 19:00 84 23 142/68 (92) 98 03/03/19 18:30 83 25 142/68 (92) 100 03/03/19 18:00 24 Mechanical Ventilator 40 03/03/19 18:00 79 23 142/66 (91) 100 03/03/19 17:30 77 25 140/56 (84) 95 03/03/19 17:20 77 26 40 03/03/19 17:00 78 27 140/56 (84) 99 03/03/19 17:00 24 Mechanical Ventilator 40 03/03/19 16:30 73 23 123/50 (74) 99 03/03/19 16:00 98.8 68 24 123/50 (74) 99 03/03/19 16:00 24 Mechanical Ventilator 40 03/03/19 16:00 Mechanical Ventilator Mechanical Ventilator 03/03/19 16:00 40 03/03/19 16:00 77 03/03/19 15:30 76 22 123/50 (74) 99 03/03/19 15:00 23 Mechanical Ventilator 40 03/03/19 15:00 84 23 140/80 (100) 99 03/03/19 14:45 81 24 40 03/03/19 14:30 96 21 140/80 (100) 98 03/03/19 14:16 17 40 03/03/19 14:15 23 Mechanical Ventilator 40 03/03/19 14:00 23 Mechanical Ventilator 40 03/03/19 14:00 103 23 110/97 (101) 100 03/03/19 13:45 86 20 110/97 (101) 100 03/03/19 13:42 85 28 100 Mechanical Ventilator 40 03/03/19 13:42 85 28 100 Mechanical Ventilator 40 03/03/19 13:30 85 18 110/97 (101) 100 03/03/19 13:15 85 20 110/97 (101) 100 03/03/19 13:01 152/125 03/03/19 13:01 152/125 03/03/19 13:00 85 28 40 03/03/19 13:00 18 Mechanical Ventilator 40 03/03/19 13:00 88 18 149/82 (104) 100 03/03/19 12:45 84 19 152/125 (134) 100 03/03/19 12:30 86 22 152/125 (134) 100 03/03/19 12:15 81 21 152/125 (134) 99 03/03/19 12:00 81 03/03/19 12:00 40 03/03/19 12:00 19 Mechanical Ventilator 40 03/03/19 12:00 Mechanical Ventilator Mechanical Ventilator 03/03/19 12:00 98.4 85 19 152/125 (134) 99 03/03/19 11:30 79 22 152/125 (134) 96 03/03/19 11:10 79 26 40 03/03/19 11:00 72 24 140/49 (79) 100 03/03/19 11:00 24 Mechanical Ventilator 40 03/03/19 10:30 72 24 140/49 (79) 97 03/03/19 10:00 72 24 139/48 (78) 100 03/03/19 10:00 24 Mechanical Ventilator 40 03/03/19 09:30 75 24 139/48 (78) 97 03/03/19 09:23 100.8 03/03/19 09:04 77 26 40 03/03/19 09:00 24 Mechanical Ventilator 23 03/03/19 09:00 88 24 153/59 (90) 94 03/03/19 08:42 74 137/50 03/03/19 08:41 98 137/50 03/03/19 08:30 93 23 153/59 (90) 96 03/03/19 08:00 40 03/03/19 08:00 101.0 97 23 137/50 (79) 96 03/03/19 08:00 23 Mechanical Ventilator 40 03/03/19 08:00 80 03/03/19 08:00 Mechanical Ventilator Mechanical Ventilator 03/03/19 07:34 84 26 99 Mechanical Ventilator 40 03/03/19 07:30 88 23 171/62 (98) 97 03/03/19 07:16 74 24 99 Mechanical Ventilator 40 03/03/19 07:14 74 24 40 03/03/19 07:00 20 Mechanical Ventilator 40 03/03/19 07:00 71 24 137/50 (79) 98 03/03/19 06:40 20 Mechanical Ventilator 40 03/03/19 06:00 73 26 139/46 (77) 98 03/03/19 05:40 23 Mechanical Ventilator 40 03/03/19 05:22 159/61 03/03/19 05:21 159/61 03/03/19 05:07 80 26 40 03/03/19 05:00 80 24 159/61 (93) 98 03/03/19 04:52 29 Mechanical Ventilator 40 03/03/19 04:40 24 Mechanical Ventilator 40 03/03/19 04:00 98.7 80 28 159/62 (94) 92 03/03/19 04:00 50 03/03/19 04:00 78 03/03/19 04:00 Mechanical Ventilator Mechanical Ventilator 03/03/19 03:40 22 Mechanical Ventilator 40 03/03/19 03:00 88 24 158/74 (102) 99 03/03/19 02:59 89 25 40 03/03/19 02:40 20 Mechanical Ventilator 40 03/03/19 02:00 82 24 159/61 (93) 98 03/03/19 01:40 22 Mechanical Ventilator 40 03/03/19 01:33 80 27 99 Mechanical Ventilator 40 03/03/19 01:14 81 27 98 Mechanical Ventilator 40 03/03/19 01:12 81 25 40 03/03/19 01:00 74 24 153/76 (101) 98 03/03/19 00:40 24 Trach Collar 40 03/03/19 00:10 24 Trach Collar 40 03/03/19 00:00 99.3 68 23 134/57 (82) 98 03/03/19 00:00 Mechanical Ventilator Mechanical Ventilator Intake and Output 03/02/19 03/03/19 19:00 07:00 Intake Total 1120 ml 1011.5 ml Output Total 2070 ml 1870 ml Balance -950 ml -858.5 ml IV Total 905 ml 495.5 ml Tube Feeding 215 ml 516 ml Output Urine Total 2070 ml 1750 ml Stool Total 120 ml Laboratory Tests 03/03/19 08:30: White Blood Count 3.1L, Red Blood Count 2.87L, Hemoglobin 8.4L, Hematocrit 24.9L , Mean Corpuscular Volume 87, Mean Corpuscular Hemoglobin 29.2, Mean Corpuscular Hemoglobin Concent 33.8, Red Cell Distribution Width 16.9H, Platelet Count 106L, Mean Platelet Volume 5.7L, Neutrophils (%) (Auto) , Lymphocytes (%) (Auto) , Monocytes (%) (Auto) , Eosinophils (%) (Auto) , Basophils (%) (Auto) , Differential Total Cells Counted 100, Neutrophils % ( Manual) 76H, Lymphocytes % (Manual) 15L, Monocytes % (Manual) 6, Eosinophils % ( Manual) 3, Basophils % (Manual) 0, Band Neutrophils 0, Platelet Estimate DecreasedL, Platelet Morphology Normal, Anisocytosis 1+, Sodium Level 140, Potassium Level 3.9, Chloride Level 107, Carbon Dioxide Level 28, Anion Gap 5, Blood Urea Nitrogen 43H, Creatinine 1.8H, Estimat Glomerular Filtration Rate 38.8, Glucose Level 247H, Calcium Level 8.8 03/03/19 11:00: Urine Color Pale yellow, Urine Appearance Slightly cloudy, Urine pH 5, Urine Specific [place] 1.005, Urine Protein 2+H, Urine Glucose (UA) Negative, Urine Ketones Negative, Urine Blood 5+H, Urine Nitrite Negative, Urine Bilirubin Negative, Urine Urobilinogen Normal, Urine Leukocyte Esterase Negative, Urine RBC 60-80H, Urine WBC 0, Urine Squamous Epithelial Cells Occasional, Urine Bacteria None Height (Feet): 6 Height (Inches): 0.00 Weight (Pounds): 251 Objective General Appearance: intubated, no agitation EENT: intubated Neck: non-tender, normal alignment, trach in place Cardiovascular: normal peripheral pulses, normal rate Respiratory/Chest: chest wall non-tender, lungs clear Abdomen: normal bowel sounds, non tender Extremities: normal range of motion, non-tender Edema: trace edema Neurologic: technical specialist cytogenetics II-XII grossly normal Sonja Douglas MD Mar 03, 2019 23:30
[2019-03-04] VITALS (48 sets, daily range): BP systolic 106–160; BP diastolic 43–120
--- NOTE | 2019-03-04 | NUR ---
NURSE NOTES: Asleep; temp 100.2. Cooling measures done. Accucheck 235, covered per sliding scale. BP stable, no distress.
[2019-03-04] MEDS: fentaNYL Citrate 2,500 MCG in NS 200 ML IV SCH ×3 (00:37→22:48)
[2019-03-04] MEDS: Albuterol/Ipratropium 3ml neb HHN SCH ×4 (01:26→19:18)
[2019-03-04] MEDS: Metoclopramide 10mg/2ml Inj IVP SCH ×3 (01:32→17:31)
--- NOTE | 2019-03-04 02:00 | NUR ---
NURSE NOTES: Calm, asleep; VSS, no distress. Continue to monitor
--- NOTE | 2019-03-04 04:00 | NUR ---
NURSE NOTES: Awake and restless, agitated. Ativan 2 mg IVP given. Complete bed bath done; pt shaved as well. No new skin breakdown. Rectal tube patent, irrigated. Remains to have generalized edema. PICC patent. Fentanyl gtt continues at 250mcg/h. Trach site clean and shows no signs of bleeding. Temp 99.1 axillary.
[2019-03-04] MEDS: LORazepam Inj 2mg/ml 1ml IV PRN (04:22)
[2019-03-04] MEDS: HydrALAZINE 50mg tab NG SCH ×3 (05:48→21:54)
[2019-03-04] MEDS: cloNIDine 0.2mg Tab NG SCH ×3 (05:48→21:54)
[2019-03-04] MEDS: NovoLOG Insulin Flexpen SUBQ SCH ×3 (05:49→18:00)
[2019-03-04] MEDS: Lacri-Lube Opth Oint 3.5gm BOTH EYES SCH ×4 (05:50→20:56)
--- NOTE | 2019-03-04 07:00 | NUR ---
HAND-OFF: Report given to Rosi ZARATE.
--- NOTE | 2019-03-04 07:00 | NUR ---
RESPIRATORY NOTE: Received pt. on 840 vent. No respiratory distress noted, pt. sP02 @ 99%. Ambu bag @ BS. Vent plugged on red outlet. Alarms on and audible. Will continue to monitor pt.
--- NOTE | 2019-03-04 07:01 | NUR ---
NURSE NOTES: RECEIVED PATIENT FROM Venus ALLEN RN. PATIENT IS SEEN LYING IN BED, ASLEEP. HOOKED TO RAIL MANAGER. TRACH TO VENT. SHILEY 8, VENT SETTINGS AC 24, TV 550, FiO2 40%, PEEP 5. NO SIGNS OF DISTRESS OF THE MOMENT. NOTED L NGT WITH GTF NEPRO AT 43ML/HR. NOTED RECTAL TUBE AND GARVIN CATHETER. NOTED RESTRAINTS ON DUE TO PULLING OBJECTS. SKIN ISSUES NOTED. ON OVERLAY MATTRESS. WITH GENERALIZED EDEMA. PICC LINE ON R UA, FENTANYL DRIP RUNNING AT 250MCG/HR, FOLLOWING HOSPITAL PROTOCOL. CALL LIGHT WITHIN REACH. BED AT LOWEST POSITION. SIDE RAILS UP. WILL CONTINUE TO MONITOR.
[2019-03-04 07:02] LABS: BASOPHILS % (AUTO) 0.6 % (0.0-2.0); EOSINOPHILS % (AUTO) 1.8 % (0.0-3.0); HEMATOCRIT 25.9 % (42.0-52.0); HEMOGLOBIN 8.6 G/DL (14.2-18.0); LYMPHOCYTES % (AUTO) 16.1 % (20.0-45.0); MEAN CORPUSCULAR VOLUME 88 FL (80-99); MONOCYTES % (AUTO) 13.6 % (1.0-10.0); NEUTROPHILS % (AUTO) 67.9 % (45.0-75.0); PLATELET COUNT 105 K/UL (150-450); RED BLOOD COUNT 2.95 M/UL (4.70-6.10); RED CELL DISTRIBUTION WIDTH 16.9 % (11.6-14.8); WHITE BLOOD COUNT 3.7 K/UL (4.8-10.8)
--- NOTE | 2019-03-04 07:17 | General Progress Note ---
Assessment/Plan Status: stable Assessment/Plan: 1. History of HIV. 2. Hypertension. 3. Vertigo. 4. History of headaches. 5. History of diabetes. 6. Respiratory failure 7. Dysphagia 8. ileus stable H&H s/p trach ppi fu H&H prn blood transfusion ppi low dose reglan plan PEG for Tuesday Subjective ROS Limited/Unobtainable: No Allergies: Coded Allergies: No Known Allergies (Unverified , 02/05/13) Objective Last 24 Hour Vital Signs Date Time Temp Pulse Resp B/P (MAP) Pulse Ox O2 Delivery O2 Flow Rate FiO2 03/04/19 07:02 78 24 99 Mechanical Ventilator 40 03/04/19 06:52 90 24 40 03/04/19 06:47 80 24 99 Mechanical Ventilator 40 03/04/19 06:30 80 10 148/53 (84) 98 03/04/19 06:00 21 Mechanical Ventilator 40 03/04/19 06:00 90 22 138/120 (126) 99 03/04/19 05:48 148/56 03/04/19 05:48 148/56 03/04/19 05:30 84 24 148/56 (86) 98 03/04/19 05:07 87 24 40 03/04/19 05:00 88 2 153/62 (92) 98 03/04/19 05:00 23 Mechanical Ventilator 40 03/04/19 04:30 99 20 158/73 (101) 99 03/04/19 04:00 Mechanical Ventilator Mechanical Ventilator 03/04/19 04:00 23 Mechanical Ventilator 40 03/04/19 04:00 99.1 90 24 146/90 (108) 99 03/04/19 04:00 87 03/04/19 03:30 84 22 151/55 (87) 98 03/04/19 03:06 86 22 40 03/04/19 03:00 79 24 106/70 (82) 98 03/04/19 03:00 22 Mechanical Ventilator 40 03/04/19 02:30 85 23 150/54 (86) 99 03/04/19 02:00 79 24 146/49 (81) 98 03/04/19 02:00 22 Mechanical Ventilator 40 03/04/19 01:42 80 24 98 Mechanical Ventilator 40 03/04/19 01:30 79 24 148/56 (86) 100 03/04/19 01:27 81 22 98 Mechanical Ventilator 40 03/04/19 01:27 80 22 40 03/04/19 01:00 21 Mechanical Ventilator 40 03/04/19 01:00 75 24 142/49 (80) 98 03/04/19 00:37 21 Mechanical Ventilator 40 03/04/19 00:30 75 22 147/48 (81) 97 03/04/19 00:04 40 03/04/19 00:00 75 03/04/19 00:00 23 Mechanical Ventilator 40 03/04/19 00:00 100.2 75 23 147/48 (81) 98 03/04/19 00:00 Mechanical Ventilator Mechanical Ventilator 03/03/19 23:30 77 24 145/51 (82) 98 03/03/19 23:29 78 24 40 03/03/19 23:00 22 Mechanical Ventilator 40 03/03/19 23:00 79 25 142/59 (86) 99 03/03/19 22:30 76 24 142/47 (78) 99 03/03/19 22:13 144/54 03/03/19 22:12 144/54 03/03/19 22:00 78 24 144/54 (84) 98 03/03/19 22:00 24 Mechanical Ventilator 40 03/03/19 21:30 92 22 153/76 (101) 98 03/03/19 21:25 82 23 40 03/03/19 21:01 86 138/52 03/03/19 21:00 87 22 145/50 (81) 98 03/03/19 21:00 23 Mechanical Ventilator 40 03/03/19 20:30 82 24 138/52 (80) 98 03/03/19 20:05 84 03/03/19 20:05 40 03/03/19 20:02 Mechanical Ventilator Mechanical Ventilator 03/03/19 20:00 80 23 136/48 (77) 100 03/03/19 20:00 24 Mechanical Ventilator 40 03/03/19 19:53 86 24 100 Mechanical Ventilator 40 03/03/19 19:44 80 24 40 03/03/19 19:43 80 24 100 Mechanical Ventilator 40 03/03/19 19:30 100.1 78 23 146/52 (83) 99 03/03/19 19:00 23 Mechanical Ventilator 40 03/03/19 19:00 84 23 142/68 (92) 98 03/03/19 18:30 83 25 142/68 (92) 100 03/03/19 18:00 24 Mechanical Ventilator 40 03/03/19 18:00 79 23 142/66 (91) 100 03/03/19 17:30 77 25 140/56 (84) 95 03/03/19 17:20 77 26 40 03/03/19 17:00 78 27 140/56 (84) 99 03/03/19 17:00 24 Mechanical Ventilator 40 03/03/19 16:30 73 23 123/50 (74) 99 03/03/19 16:00 98.8 68 24 123/50 (74) 99 03/03/19 16:00 24 Mechanical Ventilator 40 03/03/19 16:00 Mechanical Ventilator Mechanical Ventilator 03/03/19 16:00 40 03/03/19 16:00 77 03/03/19 15:30 76 22 123/50 (74) 99 03/03/19 15:00 23 Mechanical Ventilator 40 03/03/19 15:00 84 23 140/80 (100) 99 03/03/19 14:45 81 24 40 03/03/19 14:30 96 21 140/80 (100) 98 03/03/19 14:16 17 40 03/03/19 14:15 23 Mechanical Ventilator 40 03/03/19 14:00 23 Mechanical Ventilator 40 03/03/19 14:00 103 23 110/97 (101) 100 03/03/19 13:45 86 20 110/97 (101) 100 03/03/19 13:42 85 28 100 Mechanical Ventilator 40 03/03/19 13:42 85 28 100 Mechanical Ventilator 40 03/03/19 13:30 85 18 110/97 (101) 100 03/03/19 13:15 85 20 110/97 (101) 100 03/03/19 13:01 152/125 03/03/19 13:01 152/125 03/03/19 13:00 85 28 40 03/03/19 13:00 18 Mechanical Ventilator 40 03/03/19 13:00 88 18 149/82 (104) 100 03/03/19 12:45 84 19 152/125 (134) 100 03/03/19 12:30 86 22 152/125 (134) 100 03/03/19 12:15 81 21 152/125 (134) 99 03/03/19 12:00 81 7/13/19 12:00 40 03/03/19 12:00 19 Mechanical Ventilator 40 03/03/19 12:00 Mechanical Ventilator Mechanical Ventilator 03/03/19 12:00 98.4 85 19 152/125 (134) 99 03/03/19 11:30 79 22 152/125 (134) 96 03/03/19 11:10 79 26 40 03/03/19 11:00 72 24 140/49 (79) 100 03/03/19 11:00 24 Mechanical Ventilator 40 03/03/19 10:30 72 24 140/49 (79) 97 03/03/19 10:00 72 24 139/48 (78) 100 03/03/19 10:00 24 Mechanical Ventilator 40 03/03/19 09:30 75 24 139/48 (78) 97 03/03/19 09:23 100.8 03/03/19 09:04 77 26 40 03/03/19 09:00 24 Mechanical Ventilator 23 03/03/19 09:00 88 24 153/59 (90) 94 03/03/19 08:42 74 137/50 03/03/19 08:41 98 137/50 03/03/19 08:30 93 23 153/59 (90) 96 03/03/19 08:00 40 03/03/19 08:00 101.0 97 23 137/50 (79) 96 03/03/19 08:00 23 Mechanical Ventilator 40 03/03/19 08:00 80 03/03/19 08:00 Mechanical Ventilator Mechanical Ventilator 03/03/19 07:34 84 26 99 Mechanical Ventilator 40 03/03/19 07:30 88 23 171/62 (98) 97 Intake and Output 03/03/19 03/04/19 19:00 07:00 Intake Total 961.00 ml 1023 ml Output Total 2600 ml 1150 ml Balance -1639.00 ml -127 ml Free Water 100 ml IV Total 295.00 ml 430 ml Tube Feeding 516 ml 473 ml Other 50 ml 120 ml Output Urine Total 2550 ml 1100 ml Stool Total 50 ml 50 ml Laboratory Tests 03/03/19 08:30: White Blood Count 3.1L, Red Blood Count 2.87L, Hemoglobin 8.4L, Hematocrit 24.9L , Mean Corpuscular Volume 87, Mean Corpuscular Hemoglobin 29.2, Mean Corpuscular Hemoglobin Concent 33.8, Red Cell Distribution Width 16.9H, Platelet Count 106L, Mean Platelet Volume 5.7L, Neutrophils (%) (Auto) , Lymphocytes (%) (Auto) , Monocytes (%) (Auto) , Eosinophils (%) (Auto) , Basophils (%) (Auto) , Differential Total Cells Counted 100, Neutrophils % ( Manual) 76H, Lymphocytes % (Manual) 15L, Monocytes % (Manual) 6, Eosinophils % ( Manual) 3, Basophils % (Manual) 0, Band Neutrophils 0, Platelet Estimate DecreasedL, Platelet Morphology Normal, Anisocytosis 1+, Sodium Level 140, Potassium Level 3.9, Chloride Level 107, Carbon Dioxide Level 28, Anion Gap 5, Blood Urea Nitrogen 43H, Creatinine 1.8H, Estimat Glomerular Filtration Rate 38.8, Glucose Level 247H, Calcium Level 8.8 03/03/19 11:00: Urine Color Pale yellow, Urine Appearance Slightly cloudy, Urine pH 5, Urine Specific [place] 1.005, Urine Protein 2+H, Urine Glucose (UA) Negative, Urine Ketones Negative, Urine Blood 5+H, Urine Nitrite Negative, Urine Bilirubin Negative, Urine Urobilinogen Normal, Urine Leukocyte Esterase Negative, Urine RBC 60-80H, Urine WBC 0, Urine Squamous Epithelial Cells Occasional, Urine Bacteria None 03/04/19 05:59: White Blood Count 3.7L, Red Blood Count 2.95L, Hemoglobin 8.6L, Hematocrit 25.9L , Mean Corpuscular Volume 88, Mean Corpuscular Hemoglobin 29.1, Mean Corpuscular Hemoglobin Concent 33.0, Red Cell Distribution Width 16.9H, Platelet Count 105L, Mean Platelet Volume 6.3L, Neutrophils (%) (Auto) 67.9, Lymphocytes (%) (Auto) 16.1L, Monocytes (%) (Auto) 13.6H, Eosinophils (%) (Auto ) 1.8, Basophils (%) (Auto) 0.6, Sodium Level [Pending], Potassium Level [ Pending], Chloride Level [Pending], Carbon Dioxide Level [Pending], Blood Urea Nitrogen [Pending], Creatinine [Pending], Estimat Glomerular Filtration Rate [ Pending], Glucose Level [Pending], Calcium Level [Pending], Uric Acid [Pending] , Phosphorus Level [Pending], Magnesium Level [Pending], Total Bilirubin [ Pending], Aspartate Amino Transf (AST/SGOT) [Pending], Alanine Aminotransferase (ALT/SGPT) [Pending], Alkaline Phosphatase [Pending], C-Reactive Protein, Quantitative [Pending], Pro-B-Type Natriuretic Peptide [Pending], Total Protein [Pending], Albumin [Pending], Globulin [Pending], Random Vancomycin Level [ Pending] Height (Feet): 6 Height (Inches): 0.00 Weight (Pounds): 260 General Appearance: lethargic EENT: normal ENT inspection Neck: supple Cardiovascular: tachycardia Respiratory/Chest: decreased breath sounds Abdomen: normal bowel sounds, non tender, soft Extremities: non-tender Kg Ricketts MD Mar 04, 2019 07:17
--- NOTE | 2019-03-04 07:24 | General Progress Note ---
Assessment/Plan Problem List: (1) ISH (acute kidney injury) ICD Codes: N17.9 - Acute kidney failure, unspecified SNOMED: 68089460 (2) Uncontrolled type 2 diabetes mellitus with chronic kidney disease ICD Codes: E11.22 - Type 2 diabetes mellitus with diabetic chronic kidney disease; E11.65 - Type 2 diabetes mellitus with hyperglycemia SNOMED: 45472771, 171141491, 988320038 (3) HIV disease ICD Codes: B20 - Human immunodeficiency virus [HIV] disease SNOMED: 99665496 (4) Respiratory distress ICD Codes: R06.03 - Acute respiratory distress SNOMED: 050608806 Status: stable Assessment/Plan: - continue Novolog sliding scale every 6 hours - increase Levemir to 16 units bid Subjective ROS Limited/Unobtainable: Yes Allergies: Coded Allergies: No Known Allergies (Unverified , 02/05/13) Subjective events noted trach - vent glucose on higher side Item Value Date Time Bedside Blood Glucose 222 mg/dl H 03/04/19 0558 Bedside Blood Glucose 235 mg/dl H 03/04/19 0003 Bedside Blood Glucose 219 mg/dl H 03/03/19 2103 Bedside Blood Glucose 211 mg/dl H 03/03/19 1816 Bedside Blood Glucose 278 mg/dl H 03/03/19 1303 Objective Last 24 Hour Vital Signs Date Time Temp Pulse Resp B/P (MAP) Pulse Ox O2 Delivery O2 Flow Rate FiO2 03/04/19 07:02 78 24 99 Mechanical Ventilator 40 03/04/19 06:52 90 24 40 03/04/19 06:47 80 24 99 Mechanical Ventilator 40 03/04/19 06:30 80 10 148/53 (84) 98 03/04/19 06:00 21 Mechanical Ventilator 40 03/04/19 06:00 90 22 138/120 (126) 99 03/04/19 05:48 148/56 03/04/19 05:48 148/56 03/04/19 05:30 84 24 148/56 (86) 98 03/04/19 05:07 87 24 40 03/04/19 05:00 88 2 153/62 (92) 98 03/04/19 05:00 23 Mechanical Ventilator 40 03/04/19 04:30 99 20 158/73 (101) 99 03/04/19 04:00 Mechanical Ventilator Mechanical Ventilator 03/04/19 04:00 23 Mechanical Ventilator 40 03/04/19 04:00 99.1 90 24 146/90 (108) 99 03/04/19 04:00 87 03/04/19 03:30 84 22 151/55 (87) 98 03/04/19 03:06 86 22 40 03/04/19 03:00 79 24 106/70 (82) 98 03/04/19 03:00 22 Mechanical Ventilator 40 03/04/19 02:30 85 23 150/54 (86) 99 03/04/19 02:00 79 24 146/49 (81) 98 03/04/19 02:00 22 Mechanical Ventilator 40 03/04/19 01:42 80 24 98 Mechanical Ventilator 40 03/04/19 01:30 79 24 148/56 (86) 100 03/04/19 01:27 81 22 98 Mechanical Ventilator 40 03/04/19 01:27 80 22 40 03/04/19 01:00 21 Mechanical Ventilator 40 03/04/19 01:00 75 24 142/49 (80) 98 03/04/19 00:37 21 Mechanical Ventilator 40 03/04/19 00:30 75 22 147/48 (81) 97 03/04/19 00:04 40 03/04/19 00:00 75 03/04/19 00:00 23 Mechanical Ventilator 40 03/04/19 00:00 100.2 75 23 147/48 (81) 98 03/04/19 00:00 Mechanical Ventilator Mechanical Ventilator 03/03/19 23:30 77 24 145/51 (82) 98 03/03/19 23:29 78 24 40 03/03/19 23:00 22 Mechanical Ventilator 40 03/03/19 23:00 79 25 142/59 (86) 99 03/03/19 22:30 76 24 142/47 (78) 99 03/03/19 22:13 144/54 03/03/19 22:12 144/54 03/03/19 22:00 78 24 144/54 (84) 98 03/03/19 22:00 24 Mechanical Ventilator 40 03/03/19 21:30 92 22 153/76 (101) 98 03/03/19 21:25 82 23 40 03/03/19 21:01 86 138/52 03/03/19 21:00 87 22 145/50 (81) 98 03/03/19 21:00 23 Mechanical Ventilator 40 03/03/19 20:30 82 24 138/52 (80) 98 03/03/19 20:05 84 03/03/19 20:05 40 03/03/19 20:02 Mechanical Ventilator Mechanical Ventilator 03/03/19 20:00 80 23 136/48 (77) 100 03/03/19 20:00 24 Mechanical Ventilator 40 03/03/19 19:53 86 24 100 Mechanical Ventilator 40 03/03/19 19:44 80 24 40 03/03/19 19:43 80 24 100 Mechanical Ventilator 40 03/03/19 19:30 100.1 78 23 146/52 (83) 99 03/03/19 19:00 23 Mechanical Ventilator 40 03/03/19 19:00 84 23 142/68 (92) 98 03/03/19 18:30 83 25 142/68 (92) 100 03/03/19 18:00 24 Mechanical Ventilator 40 03/03/19 18:00 79 23 142/66 (91) 100 03/03/19 17:30 77 25 140/56 (84) 95 03/03/19 17:20 77 26 40 03/03/19 17:00 78 27 140/56 (84) 99 03/03/19 17:00 24 Mechanical Ventilator 40 03/03/19 16:30 73 23 123/50 (74) 99 03/03/19 16:00 98.8 68 24 123/50 (74) 99 03/03/19 16:00 24 Mechanical Ventilator 40 03/03/19 16:00 Mechanical Ventilator Mechanical Ventilator 03/03/19 16:00 40 03/03/19 16:00 77 03/03/19 15:30 76 22 123/50 (74) 99 03/03/19 15:00 23 Mechanical Ventilator 40 03/03/19 15:00 84 23 140/80 (100) 99 03/03/19 14:45 81 24 40 03/03/19 14:30 96 21 140/80 (100) 98 03/03/19 14:16 17 40 03/03/19 14:15 23 Mechanical Ventilator 40 03/03/19 14:00 23 Mechanical Ventilator 40 03/03/19 14:00 103 23 110/97 (101) 100 03/03/19 13:45 86 20 110/97 (101) 100 03/03/19 13:42 85 28 100 Mechanical Ventilator 40 03/03/19 13:42 85 28 100 Mechanical Ventilator 40 03/03/19 13:30 85 18 110/97 (101) 100 03/03/19 13:15 85 20 110/97 (101) 100 03/03/19 13:01 152/125 03/03/19 13:01 152/125 03/03/19 13:00 85 28 40 03/03/19 13:00 18 Mechanical Ventilator 40 03/03/19 13:00 88 18 149/82 (104) 100 03/03/19 12:45 84 19 152/125 (134) 100 03/03/19 12:30 86 22 152/125 (134) 100 03/03/19 12:15 81 21 152/125 (134) 99 03/03/19 12:00 81 03/03/19 12:00 40 03/03/19 12:00 19 Mechanical Ventilator 40 03/03/19 12:00 Mechanical Ventilator Mechanical Ventilator 03/03/19 12:00 98.4 85 19 152/125 (134) 99 03/03/19 11:30 79 22 152/125 (134) 96 03/03/19 11:10 79 26 40 03/03/19 11:00 72 24 140/49 (79) 100 03/03/19 11:00 24 Mechanical Ventilator 40 03/03/19 10:30 72 24 140/49 (79) 97 03/03/19 10:00 72 24 139/48 (78) 100 03/03/19 10:00 24 Mechanical Ventilator 40 03/03/19 09:30 75 24 139/48 (78) 97 03/03/19 09:23 100.8 03/03/19 09:04 77 26 40 03/03/19 09:00 24 Mechanical Ventilator 23 03/03/19 09:00 88 24 153/59 (90) 94 03/03/19 08:42 74 137/50 03/03/19 08:41 98 137/50 03/03/19 08:30 93 23 153/59 (90) 96 03/03/19 08:00 40 03/03/19 08:00 101.0 97 23 137/50 (79) 96 03/03/19 08:00 23 Mechanical Ventilator 40 03/03/19 08:00 80 03/03/19 08:00 Mechanical Ventilator Mechanical Ventilator 03/03/19 07:34 84 26 99 Mechanical Ventilator 40 03/03/19 07:30 88 23 171/62 (98) 97 Intake and Output 03/03/19 03/04/19 19:00 07:00 Intake Total 961.00 ml 1023 ml Output Total 2600 ml 1150 ml Balance -1639.00 ml -127 ml Free Water 100 ml IV Total 295.00 ml 430 ml Tube Feeding 516 ml 473 ml Other 50 ml 120 ml Output Urine Total 2550 ml 1100 ml Stool Total 50 ml 50 ml Laboratory Tests 03/03/19 08:30: White Blood Count 3.1L, Red Blood Count 2.87L, Hemoglobin 8.4L, Hematocrit 24.9L , Mean Corpuscular Volume 87, Mean Corpuscular Hemoglobin 29.2, Mean Corpuscular Hemoglobin Concent 33.8, Red Cell Distribution Width 16.9H, Platelet Count 106L, Mean Platelet Volume 5.7L, Neutrophils (%) (Auto) , Lymphocytes (%) (Auto) , Monocytes (%) (Auto) , Eosinophils (%) (Auto) , Basophils (%) (Auto) , Differential Total Cells Counted 100, Neutrophils % ( Manual) 76H, Lymphocytes % (Manual) 15L, Monocytes % (Manual) 6, Eosinophils % ( Manual) 3, Basophils % (Manual) 0, Band Neutrophils 0, Platelet Estimate DecreasedL, Platelet Morphology Normal, Anisocytosis 1+, Sodium Level 140, Potassium Level 3.9, Chloride Level 107, Carbon Dioxide Level 28, Anion Gap 5, Blood Urea Nitrogen 43H, Creatinine 1.8H, Estimat Glomerular Filtration Rate 38.8, Glucose Level 247H, Calcium Level 8.8 03/03/19 11:00: Urine Color Pale yellow, Urine Appearance Slightly cloudy, Urine pH 5, Urine Specific [place] 1.005, Urine Protein 2+H, Urine Glucose (UA) Negative, Urine Ketones Negative, Urine Blood 5+H, Urine Nitrite Negative, Urine Bilirubin Negative, Urine Urobilinogen Normal, Urine Leukocyte Esterase Negative, Urine RBC 60-80H, Urine WBC 0, Urine Squamous Epithelial Cells Occasional, Urine Bacteria None 03/04/19 05:59: White Blood Count 3.7L, Red Blood Count 2.95L, Hemoglobin 8.6L, Hematocrit 25.9L , Mean Corpuscular Volume 88, Mean Corpuscular Hemoglobin 29.1, Mean Corpuscular Hemoglobin Concent 33.0, Red Cell Distribution Width 16.9H, Platelet Count 105L, Mean Platelet Volume 6.3L, Neutrophils (%) (Auto) 67.9, Lymphocytes (%) (Auto) 16.1L, Monocytes (%) (Auto) 13.6H, Eosinophils (%) (Auto ) 1.8, Basophils (%) (Auto) 0.6, Sodium Level [Pending], Potassium Level [ Pending], Chloride Level [Pending], Carbon Dioxide Level [Pending], Blood Urea Nitrogen [Pending], Creatinine [Pending], Estimat Glomerular Filtration Rate [ Pending], Glucose Level [Pending], Calcium Level [Pending], Uric Acid [Pending] , Phosphorus Level [Pending], Magnesium Level [Pending], Total Bilirubin [ Pending], Aspartate Amino Transf (AST/SGOT) [Pending], Alanine Aminotransferase (ALT/SGPT) [Pending], Alkaline Phosphatase [Pending], C-Reactive Protein, Quantitative [Pending], Pro-B-Type Natriuretic Peptide [Pending], Total Protein [Pending], Albumin [Pending], Globulin [Pending], Random Vancomycin Level [ Pending] Height (Feet): 6 Height (Inches): 0.00 Weight (Pounds): 260 General Appearance: other - on vent EENT: other - tracheostomy Cardiovascular: normal rate Respiratory/Chest: decreased breath sounds Abdomen: normal bowel sounds Objective Current Medications Medications (Trade) Dose Ordered Sig/Marquis Route PRN Reason Start Time Stop Time Status Last Admin Dose Admin Acetaminophen (Tylenol) 650 mg Q4H PRN ORAL Mild Pain (Pain Scale 1-3) 02/07/19 11:15 03/08/19 17:29 03/03/19 08:53 Acetaminophen/ Butalbital/ Caffeine (Fioricet) 1 tab Q8H PRN ORAL For Headache 02/08/19 17:15 03/10/19 17:14 Albuterol/ Ipratropium (Albuterol/ Ipratropium) 3 ml Q6HRT HHN 03/03/19 19:00 03/08/19 18:59 03/04/19 06:50 Amlodipine Besylate (Norvasc) 10 mg DAILY NG 02/15/19 09:00 03/14/19 15:59 03/03/19 08:41 Artificial Tears (Lacri-Lube) 1 applic AC+HS BOTH EYES 02/18/19 06:30 03/20/19 06:29 03/04/19 05:50 Bisacodyl (Dulcolax) 5 mg DAILYPRN PRN ORAL Constipation 02/08/19 17:15 03/10/19 17:14 02/25/19 12:45 Chlorhexidine Gluconate (Jessy-Hex 2%) 1 applic DAILY@2000 TOPIC 02/25/19 20:00 03/27/19 19:59 03/03/19 21:00 Clonidine HCl (Catapres tab) 0.2 mg EVERY 8 HOURS NG 03/02/19 22:00 03/19/19 13:59 03/04/19 05:48 Dextrose (Dextrose 50%) 25 ml Q30M PRN IV Hypoglycemia 03/01/19 07:15 03/31/19 07:14 Dextrose (Dextrose 50%) 50 ml Q30M PRN IV Hypoglycemia 03/01/19 07:15 03/31/19 07:14 Docusate Sodium (Colace) 100 mg TID GT 02/12/19 18:00 03/12/19 08:59 03/03/19 18:14 Fentanyl Citrate 2500 mcg/Sodium Chloride 250 ml @ 0 mls/hr Q24H IV 03/03/19 00:00 03/10/19 00:00 03/04/19 00:37 Fluconazole/ Sodium Chloride 100 ml @ 100 mls/hr Q24H IV 03/03/19 18:00 03/10/19 17:59 03/03/19 18:17 Furosemide (Lasix) 40 mg DAILY IV 03/01/19 09:00 03/31/19 08:59 03/03/19 08:42 Guaifenesin (Mucinex ER) 600 mg TWICE A DAY ORAL 02/07/19 18:00 03/09/19 08:59 03/03/19 18:14 Heparin Sodium (Porcine) (Heparin 5000 units/ml) 5,000 units EVERY 12 HOURS SUBQ 02/26/19 21:00 03/28/19 20:59 03/03/19 21:02 Hydralazine HCl (Apresoline) 10 mg Q4H PRN IV bp over 165 syst 02/17/19 10:15 03/19/19 10:14 02/19/19 14:45 Hydralazine HCl (Apresoline) 50 mg Q8HR NG 02/22/19 14:00 03/21/19 21:59 03/04/19 05:48 Insulin Aspart (NovoLOG) EVERY 6 HOURS SUBQ 02/26/19 12:00 03/28/19 11:59 03/04/19 05:49 Insulin Detemir (Levemir) 10 units Q12HR SUBQ 03/03/19 21:00 04/01/19 20:59 03/03/19 21:03 Lorazepam (Ativan 2mg/ml 1ml) 2 mg Q2H PRN IV For Anxiety 02/27/19 13:48 03/06/19 13:47 03/04/19 04:22 Meropenem 1 gm/ Sodium Chloride 55 ml @ 110 mls/hr Q12HR IVPB 03/03/19 21:00 03/08/19 20:59 03/03/19 21:01 Metoclopramide HCl (Reglan) 5 mg Q8H IVP 02/26/19 09:00 03/28/19 08:59 03/04/19 01:32 Metolazone (Zaroxolyn) 10 mg DAILY NG 02/19/19 10:00 03/21/19 09:59 03/03/19 08:40 Metoprolol Tartrate (Lopressor) 100 mg Q12HR ORAL 02/22/19 21:00 03/08/19 20:59 03/03/19 21:01 Midazolam HCl (Versed 2mg/2ml vial) 1 mg Q2H PRN IVP Agitation 02/13/19 08:45 03/15/19 08:44 02/27/19 11:05 Neomycin/ Polymyxin/ Dexamethasone (Maxitrol Opth Oint) 1 applic BEDTIME BOTH EYES 02/18/19 21:00 03/20/19 20:59 03/03/19 21:00 Nitroglycerin (Ntg) 0.4 mg Q5M PRN SL Prn Chest Pain 02/07/19 11:00 03/08/19 17:29 02/08/19 07:42 Ondansetron HCl (Zofran) 4 mg Q6H PRN IVP Nausea & Vomiting 02/07/19 11:15 03/08/19 11:14 02/09/19 00:58 Pantoprazole (Protonix) 40 mg DAILY IVP 02/26/19 09:00 03/24/19 20:59 03/03/19 08:42 Patient Own Medication (Patient's Own Med) 1 ea BID ORAL 02/07/19 18:00 03/09/19 17:59 03/03/19 18:15 Patient Own Medication (Patient's Own Med) 1 ea Q48H ORAL 02/18/19 09:00 03/20/19 08:59 03/02/19 09:38 Patient Own Medication (Patient's Own Med) 2 ea DAILY ORAL 02/08/19 09:00 03/10/19 08:59 03/03/19 08:39 Polyethylene Glycol (Miralax) 17 gm BEDTIME ORAL 02/08/19 21:00 03/10/19 20:59 03/03/19 21:01 Sennosides (Senokot) 8.6 mg DAILY ORAL 02/13/19 12:00 03/15/19 11:59 03/03/19 08:41 Trimethoprim/ Sulfamethoxazole (Bactrim-DS) 1 tab DAILY ORAL 03/04/19 09:00 03/11/19 08:59 Vancomycin HCl (Vanco rx to dose) 1 ea DAILY PRN MISC Per rx protocol 03/03/19 11:00 04/02/19 10:59 Carlito Nichols MD Mar 04, 2019 07:24
[2019-03-04 07:50] LABS: ALANINE AMINOTRANSFERASE 106 U/L (12-78); ALBUMIN 2.1 G/DL (3.4-5.0); ALBUMIN/GLOBULIN RATIO 0.6 (1.0-2.7); ALKALINE PHOSPHATASE 131 U/L (46-116); ANION GAP 7 mmol/L (5-15); ASPARTATE AMINO TRANSFERASE 78 U/L (15-37); BILIRUBIN,TOTAL 0.5 MG/DL (0.2-1.0); BLOOD UREA NITROGEN 36 mg/dL (7-18); CARBON DIOXIDE 29 MMOL/L (21-32); CHLORIDE 107 MMOL/L (98-107); CREATININE 1.8 MG/DL (0.55-1.30); POTASSIUM 3.6 MMOL/L (3.5-5.1); SODIUM 143 MMOL/L (136-145)
--- NOTE | 2019-03-04 08:00 | NUR ---
NURSE NOTES: SEEN AND EXAMINED BY DR AUGUST WITH NEW ORDERS MADE. HELD FEEDING FOR SCHEDULED PROCEDURE TOMORROW. SUCTIONED AND REPOSITIONED PATIENT. WILL CONTINUE TO MONITOR.
[2019-03-04] MEDS: Bactrim-DS 1 tab ORAL SCH (09:00)
[2019-03-04 09:08] LABS: PHOSPHORUS 2.6 MG/DL (2.5-4.9)
[2019-03-04] MEDS: Docusate 100mg/10ml Liq GT SCH ×3 (09:12→17:31)
[2019-03-04] MEDS: ETRAVIRINE 200 MG ORAL SCH (09:13)
[2019-03-04] MEDS: RALTEGRAVIR 400 MG ORAL SCH ×2 (09:13→17:31)
[2019-03-04] MEDS: TENOFOVIR DISOPROXIL FUMARATE 300 MG ORAL SCH (09:13)
[2019-03-04] MEDS: guaiFENesin ER 600mg tab ORAL SCH ×2 (09:14→17:31)
[2019-03-04] MEDS: Pantoprazole Inj IVP SCH (09:15)
[2019-03-04] MEDS: Meropenem 1gm in NS 55ml IVPB SCH ×2 (09:15→20:57)
[2019-03-04] MEDS: Heparin 5000 units/ml inj SUBQ SCH ×2 (09:17→20:58)
[2019-03-04] MEDS: Sennosides 8.6mg tab ORAL SCH (09:21)
[2019-03-04] MEDS: Levemir Flexpen SUBQ SCH ×2 (09:26→21:00)
--- NOTE | 2019-03-04 09:54 | NUR ---
RD ASSESSMENT & RECOMMENDATIONS SEE CARE ACTIVITY FOR COMPLETE ASSESSMENT DAILY ESTIMATED NEEDS: Needs based on Critical care, HIV 85kg adj 22-30 kcals/kg 4025-6867 total kcals 1.2-2 g protein/kg 102-170 g total protein 25-30 mL/kg 1038-3473 total fluid mLs NUTRITION DIAGNOSIS: *Swallowing difficulty r/t respiratory status as evidenced by ICU status, unable to wean, now s/p trach placement, on NGT feeds with pending PEG placement. (UPDATED) * Altered nutrition related lab values R/T clinical condition, ISH, DM as evidenced by elev K (5.8- now wnl->5.5 -> wnl), elev creat (1.5->3.9->2.6-> 1.8), elev phos (5.5-> wnl), A1C 7.0. CURRENT TF:Nepro @ 43ml/hr x 24 hrs- NOW HELD FOR PENDING PEG ENTERAL NUTRITION RECOMMENDATIONS: Nepro @ 43ml/hr x 24 hrs + Prosource 1pkt BID to provide 1032ml, 1857 kcal (+80 kcal), 83g prot (+22g prot), 750ml free water - Add Prosource 1pkt BID for additional 80kcal/22g prot to meet 100% est kcal/prot needs - Flush per MD/ HOB over 30 degrees. ADDITIONAL RECOMMENDATIONS: 1) CALIBRATED BEDSCALE WT, weekly wts 2) Monitor renal fxn, K and Phos- K and phos now wnl, renal fxn improved. -> continue Nepro at this time to keep lytes under control 3) Monitor TF tolerance -> Now on reglan 4) Pt w/ rectal tube: rec to hold all stool softeners - .
[2019-03-04] MEDS ORDERED: Vancomycin 1.25gm Premix IVPB SCH (10:00)
--- NOTE | 2019-03-04 10:00 | NUR ---
NURSE NOTES: PATIENT IS LIGHTLY SEDATED, AND RESPONSIVE. STILL ON FENTANYL DRIP AT 250MCG/HR. NO SIGNS OF DISTRESS OF THE MOMENT. WILL CONTINUE TO MONITOR.
--- NOTE | 2019-03-04 11:45 | Pulmonolgy Critical Care Note ---
Critical Care - Asmt/Plan Problems: (1) Endotracheally intubated (2) Acute hypoxemic respiratory failure (3) Pneumonia (4) NSTEMI (non-ST elevated myocardial infarction) (5) AIDS (6) HIV disease (7) Hypertension (8) MDD (major depressive disorder), recurrent episode, moderate (9) Anemia (10) CKD (chronic kidney disease) (11) History of stroke (12) Diabetes (13) Anxiety (14) Malignant hypertension (15) Occult blood positive stool Assessment/Plan: VDRF, extubated 02/19, re-intubated 02/20, trach 03/02 Hemoptysis, hematemesis ARDS Acute respiratory failure B pulmonary infiltrates, ? multilobar CAP vs atypical infection vs other ? PJP AIDS (CD4 191) NSTEMI H/O prior CVA HTN HL DM with uncontrolled BS ISH on CKD Anemia, FOBT + PLAN: Continue ventilatory support/settings reviewed Daily SBT Keep PEEP 5, titrate down FiO2 to keep SaO2 > 90% RTC and PRN HHN's Continue Abx & flucon per ID Off steroids Monitor volumes and renal function --> D/W Tamara Rachel, continue Zaroxyln 10 and lasix 40 IV qDaily - so far renal fxn improving with diuresis F/U cards recs: will need further ischemia eval/cath once stabilized DVT Px: Hep SQ Monitor for bleeding, F/U GI recs, transfuse PRN Hb < 7 --> PLAN FOR EGD and PEG tomorrow F/U ENDO recs TF's (held for PEG) FC, continue to discuss GOC D/W RN and RT @ bedside CCT 35 Critical Care - Objective Last 24 Hour Vital Signs Date Time Temp Pulse Resp B/P (MAP) Pulse Ox O2 Delivery O2 Flow Rate FiO2 03/04/19 11:30 73 20 147/47 (80) 99 03/04/19 11:28 99.0 03/04/19 11:00 69 24 146/50 (82) 99 03/04/19 10:58 24 Mechanical Ventilator 03/04/19 10:45 73 24 40 03/04/19 10:30 73 24 142/43 (76) 98 03/04/19 10:00 24 Mechanical Ventilator 03/04/19 10:00 75 24 150/56 (87) 99 03/04/19 09:30 94 23 150/56 (87) 98 03/04/19 09:16 93 172/57 03/04/19 09:15 94 172/57 03/04/19 09:00 90 20 160/71 (100) 99 03/04/19 09:00 24 Mechanical Ventilator 03/04/19 08:58 90 23 40 03/04/19 08:30 99.5 91 22 156/60 (92) 99 03/04/19 08:30 86 22 154/60 (91) 99 03/04/19 08:00 Mechanical Ventilator Mechanical Ventilator 03/04/19 08:00 88 03/04/19 08:00 40 03/04/19 08:00 18 Mechanical Ventilator 40 03/04/19 08:00 91 22 156/62 (93) 99 03/04/19 07:30 89 22 149/59 (89) 99 03/04/19 07:02 78 24 99 Mechanical Ventilator 40 03/04/19 07:00 82 23 149/59 (89) 99 03/04/19 07:00 23 Mechanical Ventilator 40 03/04/19 06:52 90 24 40 03/04/19 06:47 80 24 99 Mechanical Ventilator 40 03/04/19 06:30 80 10 148/53 (84) 98 03/04/19 06:00 21 Mechanical Ventilator 40 03/04/19 06:00 90 22 138/120 (126) 99 03/04/19 05:48 148/56 03/04/19 05:48 148/56 03/04/19 05:30 84 24 148/56 (86) 98 03/04/19 05:07 87 24 40 03/04/19 05:00 88 2 153/62 (92) 98 03/04/19 05:00 23 Mechanical Ventilator 40 03/04/19 04:30 99 20 158/73 (101) 99 03/04/19 04:00 Mechanical Ventilator Mechanical Ventilator 03/04/19 04:00 23 Mechanical Ventilator 40 03/04/19 04:00 99.1 90 24 146/90 (108) 99 03/04/19 04:00 87 03/04/19 03:30 84 22 151/55 (87) 98 03/04/19 03:06 86 22 40 03/04/19 03:00 79 24 106/70 (82) 98 03/04/19 03:00 22 Mechanical Ventilator 40 03/04/19 02:30 85 23 150/54 (86) 99 03/04/19 02:00 79 24 146/49 (81) 98 03/04/19 02:00 22 Mechanical Ventilator 40 03/04/19 01:42 80 24 98 Mechanical Ventilator 40 03/04/19 01:30 79 24 148/56 (86) 100 03/04/19 01:27 81 22 98 Mechanical Ventilator 40 03/04/19 01:27 80 22 40 03/04/19 01:00 21 Mechanical Ventilator 40 03/04/19 01:00 75 24 142/49 (80) 98 03/04/19 00:37 21 Mechanical Ventilator 40 03/04/19 00:30 75 22 147/48 (81) 97 03/04/19 00:04 40 03/04/19 00:00 75 03/04/19 00:00 23 Mechanical Ventilator 40 03/04/19 00:00 100.2 75 23 147/48 (81) 98 03/04/19 00:00 Mechanical Ventilator Mechanical Ventilator 03/03/19 23:30 77 24 145/51 (82) 98 03/03/19 23:29 78 24 40 03/03/19 23:00 22 Mechanical Ventilator 40 03/03/19 23:00 79 25 142/59 (86) 99 03/03/19 22:30 76 24 142/47 (78) 99 03/03/19 22:13 144/54 03/03/19 22:12 144/54 03/03/19 22:00 78 24 144/54 (84) 98 03/03/19 22:00 24 Mechanical Ventilator 40 03/03/19 21:30 92 22 153/76 (101) 98 03/03/19 21:25 82 23 40 03/03/19 21:01 86 138/52 03/03/19 21:00 87 22 145/50 (81) 98 03/03/19 21:00 23 Mechanical Ventilator 40 03/03/19 20:30 82 24 138/52 (80) 98 03/03/19 20:05 84 03/03/19 20:05 40 03/03/19 20:02 Mechanical Ventilator Mechanical Ventilator 03/03/19 20:00 80 23 136/48 (77) 100 03/03/19 20:00 24 Mechanical Ventilator 40 03/03/19 19:53 86 24 100 Mechanical Ventilator 40 03/03/19 19:44 80 24 40 03/03/19 19:43 80 24 100 Mechanical Ventilator 40 03/03/19 19:30 100.1 78 23 146/52 (83) 99 03/03/19 19:00 23 Mechanical Ventilator 40 03/03/19 19:00 84 23 142/68 (92) 98 03/03/19 18:30 83 25 142/68 (92) 100 03/03/19 18:00 24 Mechanical Ventilator 40 03/03/19 18:00 79 23 142/66 (91) 100 03/03/19 17:30 77 25 140/56 (84) 95 03/03/19 17:20 77 26 40 03/03/19 17:00 78 27 140/56 (84) 99 03/03/19 17:00 24 Mechanical Ventilator 40 03/03/19 16:30 73 23 123/50 (74) 99 03/03/19 16:00 98.8 68 24 123/50 (74) 99 03/03/19 16:00 24 Mechanical Ventilator 40 03/03/19 16:00 Mechanical Ventilator Mechanical Ventilator 03/03/19 16:00 40 03/03/19 16:00 77 03/03/19 15:30 76 22 123/50 (74) 99 03/03/19 15:00 23 Mechanical Ventilator 40 03/03/19 15:00 84 23 140/80 (100) 99 03/03/19 14:45 81 24 40 03/03/19 14:30 96 21 140/80 (100) 98 03/03/19 14:16 17 40 03/03/19 14:15 23 Mechanical Ventilator 40 03/03/19 14:00 23 Mechanical Ventilator 40 03/03/19 14:00 103 23 110/97 (101) 100 03/03/19 13:45 86 20 110/97 (101) 100 03/03/19 13:42 85 28 100 Mechanical Ventilator 40 03/03/19 13:42 85 28 100 Mechanical Ventilator 40 03/03/19 13:30 85 18 110/97 (101) 100 03/03/19 13:15 85 20 110/97 (101) 100 03/03/19 13:01 152/125 03/03/19 13:01 152/125 03/03/19 13:00 85 28 40 03/03/19 13:00 18 Mechanical Ventilator 40 03/03/19 13:00 88 18 149/82 (104) 100 03/03/19 12:45 84 19 152/125 (134) 100 03/03/19 12:30 86 22 152/125 (134) 100 03/03/19 12:15 81 21 152/125 (134) 99 03/03/19 12:00 81 03/03/19 12:00 40 03/03/19 12:00 19 Mechanical Ventilator 40 03/03/19 12:00 Mechanical Ventilator Mechanical Ventilator 03/03/19 12:00 98.4 85 19 152/125 (134) 99 Status: awake - trach Condition: improving HEENT: atraumatic, normocephalic Neck: full ROM, trach Lungs: clear Heart: HR/BP stable Abdomen: soft, non-tender, active bowel sounds Extremities: edema - 1+, cyanosis - no, clubbing - no Micro: Microbiology Date/Time Source Procedure Growth Status 03/01/19 20:00 Sputum Induced Gram Stain - Final Complete 03/01/19 20:00 Sputum Induced Sputum Culture - Final NORMAL UPPER RESPIRATORY ADRIANA AT 48 ... Complete 03/03/19 18:00 Indwelling Cath Urine Culture - Preliminary NO GROWTH Resulted Accucheck: 222 Blood Sugars: BS controlled Critical Care - Subjective ROS Limited/Unobtainable: Yes ICU Day: 26 Intubation Day: S/P trach Interval Events: Tm 101 TF's held for PEG tomm -2L Condition: improving IV Access: PICC EKG Rhythm: Sinus Rhythm FI02: 40 Vent Support Breath Rate: 24 Vent Support Mode: AC Vent Tidal Volume: 550 Sputum Amount: Small PEEP: 5.0 PIP: 28 Secretions: small Fluids: SLIV Drips: Fent Tube Feeding Amount: 0 I&O: Intake and Output 03/03/19 03/04/19 18:59 06:59 Intake Total 944.00 ml 1091 ml Output Total 2795 ml 1250 ml Balance -1851.00 ml -159 ml Free Water 100 ml IV Total 278.00 ml 455 ml Tube Feeding 516 ml 516 ml Other 50 ml 120 ml Output Urine Total 2625 ml 1200 ml Stool Total 170 ml 50 ml Subjective: No SOB no distress no cough ET-Tube: 7.5 ET Position: 24 Labs: Laboratory Tests Test 7/14/19 05:59 White Blood Count 3.7 K/UL (4.8-10.8) L Red Blood Count 2.95 M/UL (4.70-6.10) L Hemoglobin 8.6 G/DL (14.2-18.0) L Hematocrit 25.9 % (42.0-52.0) L Mean Corpuscular Volume 88 FL (80-99) Mean Corpuscular Hemoglobin 29.1 PG (27.0-31.0) Mean Corpuscular Hemoglobin Concent 33.0 G/DL (32.0-36.0) Red Cell Distribution Width 16.9 % (11.6-14.8) H Platelet Count 105 K/UL (150-450) L Mean Platelet Volume 6.3 FL (6.5-10.1) L Neutrophils (%) (Auto) 67.9 % (45.0-75.0) Lymphocytes (%) (Auto) 16.1 % (20.0-45.0) L Monocytes (%) (Auto) 13.6 % (1.0-10.0) H Eosinophils (%) (Auto) 1.8 % (0.0-3.0) Basophils (%) (Auto) 0.6 % (0.0-2.0) Sodium Level 143 MMOL/L (136-145) Potassium Level 3.6 MMOL/L (3.5-5.1) Chloride Level 107 MMOL/L (98-107) Carbon Dioxide Level 29 MMOL/L (21-32) Anion Gap 7 mmol/L (5-15) Blood Urea Nitrogen 36 mg/dL (7-18) H Creatinine 1.8 MG/DL (0.55-1.30) H Estimat Glomerular Filtration Rate 38.8 mL/min (>60) Glucose Level 225 MG/DL (74-106) H Uric Acid 4.8 MG/DL (2.6-7.2) Calcium Level 9.0 MG/DL (8.5-10.1) Phosphorus Level 2.6 MG/DL (2.5-4.9) Magnesium Level 1.7 MG/DL (1.8-2.4) L Total Bilirubin 0.5 MG/DL (0.2-1.0) Aspartate Amino Transf (AST/SGOT) 78 U/L (15-37) H Alanine Aminotransferase (ALT/SGPT) 106 U/L (12-78) H Alkaline Phosphatase 131 U/L (46-116) H C-Reactive Protein, Quantitative 8.4 mg/dL (0.00-0.90) H Pro-B-Type Natriuretic Peptide 22276 pg/mL (0-125) H Total Protein 5.6 G/DL (6.4-8.2) L Albumin 2.1 G/DL (3.4-5.0) L Globulin 3.5 g/dL Albumin/Globulin Ratio 0.6 (1.0-2.7) L Random Vancomycin Level 8.0 ug/mL Brett Meredith MD Mar 04, 2019 11:45
--- NOTE | 2019-03-04 12:10 | NUR ---
NURSE NOTES: SEEN AND EXAMINED BY DR PENA. PT NOTED TO BE FEBRILE. COOLING MEASURES DONE. WILL CONTINUE TO MONITOR.
--- NOTE | 2019-03-04 13:04 | Nephrology Progress Note ---
Assessment/Plan Problem List: (1) ISH (acute kidney injury) Assessment: Cr lowering (2) HIV (human immunodeficiency virus infection) (3) NSTEMI (non-ST elevated myocardial infarction) Assessment: troponin decreasing (4) Hypoxia (5) Anemia (6) Diabetes Assessment Acute Renal failure- Cr leveling- Urine out put is good Acidosis improved Acute respiratory failure- Require intubation and Mechanical Ventilation- Anemia- Elevated troponin / OR HTN DM HIV Antibody + Plan Trach 03/02 observe Mag level adjust BP meds on feeding IV protonix transfusiosn as needed BP med adjustment UA and urine studies Avoid Nephrotoxics as possible Monitor renal parameters keep BP and BS in check Per orders No HD at this time Kidney RADHA noted adjust BP meds add Isordil Subjective ROS Limited/Unobtainable: Yes Objective Objective Last 24 Hour Vital Signs Date Time Temp Pulse Resp B/P (MAP) Pulse Ox O2 Delivery O2 Flow Rate FiO2 03/04/19 12:30 79 23 153/78 (103) 98 03/04/19 12:00 Mechanical Ventilator Mechanical Ventilator 03/04/19 12:00 100.5 74 24 157/66 (96) 98 03/04/19 12:00 40 03/04/19 12:00 24 Mechanical Ventilator 30 03/04/19 12:00 40 03/04/19 11:30 73 20 147/47 (80) 99 03/04/19 11:28 99.0 03/04/19 11:00 69 24 146/50 (82) 99 03/04/19 10:58 24 Mechanical Ventilator 03/04/19 10:45 73 24 40 03/04/19 10:30 73 24 142/43 (76) 98 03/04/19 10:00 24 Mechanical Ventilator 03/04/19 10:00 75 24 150/56 (87) 99 03/04/19 09:30 94 23 150/56 (87) 98 03/04/19 09:16 93 172/57 03/04/19 09:15 94 172/57 03/04/19 09:00 90 20 160/71 (100) 99 03/04/19 09:00 24 Mechanical Ventilator 03/04/19 08:58 90 23 40 03/04/19 08:30 99.5 91 22 156/60 (92) 99 03/04/19 08:30 86 22 154/60 (91) 99 03/04/19 08:00 Mechanical Ventilator Mechanical Ventilator 03/04/19 08:00 88 03/04/19 08:00 40 03/04/19 08:00 18 Mechanical Ventilator 40 03/04/19 08:00 91 22 156/62 (93) 99 03/04/19 07:30 89 22 149/59 (89) 99 03/04/19 07:02 78 24 99 Mechanical Ventilator 40 03/04/19 07:00 82 23 149/59 (89) 99 03/04/19 07:00 23 Mechanical Ventilator 40 03/04/19 06:52 90 24 40 03/04/19 06:47 80 24 99 Mechanical Ventilator 40 03/04/19 06:30 80 10 148/53 (84) 98 03/04/19 06:00 21 Mechanical Ventilator 40 03/04/19 06:00 90 22 138/120 (126) 99 03/04/19 05:48 148/56 03/04/19 05:48 148/56 03/04/19 05:30 84 24 148/56 (86) 98 03/04/19 05:07 87 24 40 03/04/19 05:00 88 2 153/62 (92) 98 03/04/19 05:00 23 Mechanical Ventilator 40 03/04/19 04:30 99 20 158/73 (101) 99 03/04/19 04:00 Mechanical Ventilator Mechanical Ventilator 03/04/19 04:00 23 Mechanical Ventilator 40 03/04/19 04:00 99.1 90 24 146/90 (108) 99 03/04/19 04:00 87 03/04/19 03:30 84 22 151/55 (87) 98 03/04/19 03:06 86 22 40 03/04/19 03:00 79 24 106/70 (82) 98 03/04/19 03:00 22 Mechanical Ventilator 40 03/04/19 02:30 85 23 150/54 (86) 99 03/04/19 02:00 79 24 146/49 (81) 98 03/04/19 02:00 22 Mechanical Ventilator 40 03/04/19 01:42 80 24 98 Mechanical Ventilator 40 03/04/19 01:30 79 24 148/56 (86) 100 03/04/19 01:27 81 22 98 Mechanical Ventilator 40 03/04/19 01:27 80 22 40 03/04/19 01:00 21 Mechanical Ventilator 40 03/04/19 01:00 75 24 142/49 (80) 98 03/04/19 00:37 21 Mechanical Ventilator 40 03/04/19 00:30 75 22 147/48 (81) 97 03/04/19 00:04 40 03/04/19 00:00 75 03/04/19 00:00 23 Mechanical Ventilator 40 03/04/19 00:00 100.2 75 23 147/48 (81) 98 03/04/19 00:00 Mechanical Ventilator Mechanical Ventilator 03/03/19 23:30 77 24 145/51 (82) 98 03/03/19 23:29 78 24 40 03/03/19 23:00 22 Mechanical Ventilator 40 03/03/19 23:00 79 25 142/59 (86) 99 03/03/19 22:30 76 24 142/47 (78) 99 03/03/19 22:13 144/54 03/03/19 22:12 144/54 03/03/19 22:00 78 24 144/54 (84) 98 03/03/19 22:00 24 Mechanical Ventilator 40 03/03/19 21:30 92 22 153/76 (101) 98 03/03/19 21:25 82 23 40 03/03/19 21:01 86 138/52 03/03/19 21:00 87 22 145/50 (81) 98 03/03/19 21:00 23 Mechanical Ventilator 40 03/03/19 20:30 82 24 138/52 (80) 98 03/03/19 20:05 84 03/03/19 20:05 40 03/03/19 20:02 Mechanical Ventilator Mechanical Ventilator 03/03/19 20:00 80 23 136/48 (77) 100 03/03/19 20:00 24 Mechanical Ventilator 40 03/03/19 19:53 86 24 100 Mechanical Ventilator 40 03/03/19 19:44 80 24 40 03/03/19 19:43 80 24 100 Mechanical Ventilator 40 03/03/19 19:30 100.1 78 23 146/52 (83) 99 03/03/19 19:00 23 Mechanical Ventilator 40 03/03/19 19:00 84 23 142/68 (92) 98 03/03/19 18:30 83 25 142/68 (92) 100 03/03/19 18:00 24 Mechanical Ventilator 40 03/03/19 18:00 79 23 142/66 (91) 100 03/03/19 17:30 77 25 140/56 (84) 95 03/03/19 17:20 77 26 40 03/03/19 17:00 78 27 140/56 (84) 99 03/03/19 17:00 24 Mechanical Ventilator 40 03/03/19 16:30 73 23 123/50 (74) 99 03/03/19 16:00 98.8 68 24 123/50 (74) 99 03/03/19 16:00 24 Mechanical Ventilator 40 03/03/19 16:00 Mechanical Ventilator Mechanical Ventilator 03/03/19 16:00 40 03/03/19 16:00 77 03/03/19 15:30 76 22 123/50 (74) 99 03/03/19 15:00 23 Mechanical Ventilator 40 03/03/19 15:00 84 23 140/80 (100) 99 03/03/19 14:45 81 24 40 03/03/19 14:30 96 21 140/80 (100) 98 03/03/19 14:16 17 40 03/03/19 14:15 23 Mechanical Ventilator 40 03/03/19 14:00 23 Mechanical Ventilator 40 03/03/19 14:00 103 23 110/97 (101) 100 03/03/19 13:45 86 20 110/97 (101) 100 03/03/19 13:42 85 28 100 Mechanical Ventilator 40 03/03/19 13:42 85 28 100 Mechanical Ventilator 40 03/03/19 13:30 85 18 110/97 (101) 100 03/03/19 13:15 85 20 110/97 (101) 100 03/03/19 13:01 152/125 03/03/19 13:01 152/125 Intake and Output 03/03/19 03/04/19 18:59 06:59 Intake Total 944.00 ml 1091 ml Output Total 2795 ml 1250 ml Balance -1851.00 ml -159 ml Free Water 100 ml IV Total 278.00 ml 455 ml Tube Feeding 516 ml 516 ml Other 50 ml 120 ml Output Urine Total 2625 ml 1200 ml Stool Total 170 ml 50 ml Laboratory Tests 03/04/19 05:59: White Blood Count 3.7L, Red Blood Count 2.95L, Hemoglobin 8.6L, Hematocrit 25.9L , Mean Corpuscular Volume 88, Mean Corpuscular Hemoglobin 29.1, Mean Corpuscular Hemoglobin Concent 33.0, Red Cell Distribution Width 16.9H, Platelet Count 105L, Mean Platelet Volume 6.3L, Neutrophils (%) (Auto) 67.9, Lymphocytes (%) (Auto) 16.1L, Monocytes (%) (Auto) 13.6H, Eosinophils (%) (Auto ) 1.8, Basophils (%) (Auto) 0.6, Sodium Level 143, Potassium Level 3.6, Chloride Level 107, Carbon Dioxide Level 29, Anion Gap 7, Blood Urea Nitrogen 36H, Creatinine 1.8H, Estimat Glomerular Filtration Rate 38.8, Glucose Level 225H, Uric Acid 4.8, Calcium Level 9.0, Phosphorus Level 2.6, Magnesium Level 1.7L, Total Bilirubin 0.5, Aspartate Amino Transf (AST/SGOT) 78H, Alanine Aminotransferase (ALT/SGPT) 106H, Alkaline Phosphatase 131H, C-Reactive Protein , Quantitative 8.4H, Pro-B-Type Natriuretic Peptide 11649Z, Total Protein 5.6L, Albumin 2.1L, Globulin 3.5, Albumin/Globulin Ratio 0.6L, Random Vancomycin Level 8.0 Height (Feet): 6 Height (Inches): 0.00 Weight (Pounds): 260 General Appearance: no apparent distress EENT: other - trach Cardiovascular: tachycardia Respiratory/Chest: decreased breath sounds Abdomen: distended Objective no change Mike Mcdonald MD Mar 04, 2019 13:04
--- NOTE | 2019-03-04 13:22 | Infectious Diseases Prog Note ---
Assessment/Plan Assessment/Plan A) 1) pneumonia - ? aspiration/hcap, ? CAP, ? pneumocystis pna, ? fungal ( cryptococcus), sepsis, leukocytosis, ? 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, on anti-retroviral treatment 4) rule out TB pna, in isolation - afb smear on bronchoscopy is negative, TB spot negative 5) pmh noted - hypertension, ckd, anemia, dm, cva, tia, migraines 6) allergies - nkda, sh-negative, fh-nc, mar noted 7) d/w RN P) 1) antibiotics changed to vancomycin, diflucan, meropenem - s/p pneumocystis treatment - f/u on cultures for fevers - s/p trach - bactrim pcp prophylaxis 2) leukocytosis better, monitor labs and chest x-ray, no fevers, no pressors 3) diarrhea but on stool softeners 4) weaning per pulmonary medicine 5) icu supportive care, vent support 6) skin care per protocol 7) d/w Dr. Meredith Subjective Constitutional: Reports: fever, other - on vent, s/p trach HEENT: Reports: congestion Respiratory: Reports: shortness of breath Cardiovascular: Reports: other - no pressors ; Denies: chest pain Gastrointestinal/Abdominal: Reports: other - + diarrhea and rectal tube Genitourinary: Reports: other - + smith - urine slt cl Neurologic: Reports: weakness Psychiatric: Reports: other - NA Skin: Denies: rash Hematologic: Denies: bleeding Musculoskeletal: Reports: other - NA Allergies: Coded Allergies: No Known Allergies (Unverified , 02/05/13) Objective Vital Signs Last 24 Hour Vital Signs Date Time Temp Pulse Resp B/P (MAP) Pulse Ox O2 Delivery O2 Flow Rate FiO2 03/04/19 13:12 74 24 100 Mechanical Ventilator 40 03/04/19 13:12 64 24 40 03/04/19 13:00 67 24 98 Mechanical Ventilator 40 03/04/19 12:30 79 23 153/78 (103) 98 03/04/19 12:00 Mechanical Ventilator Mechanical Ventilator 03/04/19 12:00 100.5 74 24 157/66 (96) 98 03/04/19 12:00 40 03/04/19 12:00 24 Mechanical Ventilator 30 03/04/19 12:00 40 03/04/19 11:30 73 20 147/47 (80) 99 03/04/19 11:28 99.0 03/04/19 11:00 69 24 146/50 (82) 99 03/04/19 10:58 24 Mechanical Ventilator 03/04/19 10:45 73 24 40 03/04/19 10:30 73 24 142/43 (76) 98 03/04/19 10:00 24 Mechanical Ventilator 03/04/19 10:00 75 24 150/56 (87) 99 03/04/19 09:30 94 23 150/56 (87) 98 03/04/19 09:16 93 172/57 03/04/19 09:15 94 172/57 03/04/19 09:00 90 20 160/71 (100) 99 03/04/19 09:00 24 Mechanical Ventilator 03/04/19 08:58 90 23 40 03/04/19 08:30 99.5 91 22 156/60 (92) 99 03/04/19 08:30 86 22 154/60 (91) 99 03/04/19 08:00 Mechanical Ventilator Mechanical Ventilator 03/04/19 08:00 88 03/04/19 08:00 40 03/04/19 08:00 18 Mechanical Ventilator 40 03/04/19 08:00 91 22 156/62 (93) 99 03/04/19 07:30 89 22 149/59 (89) 99 03/04/19 07:02 78 24 99 Mechanical Ventilator 40 03/04/19 07:00 82 23 149/59 (89) 99 03/04/19 07:00 23 Mechanical Ventilator 40 03/04/19 06:52 90 24 40 03/04/19 06:47 80 24 99 Mechanical Ventilator 40 03/04/19 06:30 80 10 148/53 (84) 98 03/04/19 06:00 21 Mechanical Ventilator 40 03/04/19 06:00 90 22 138/120 (126) 99 03/04/19 05:48 148/56 03/04/19 05:48 148/56 03/04/19 05:30 84 24 148/56 (86) 98 03/04/19 05:07 87 24 40 03/04/19 05:00 88 2 153/62 (92) 98 03/04/19 05:00 23 Mechanical Ventilator 40 03/04/19 04:30 99 20 158/73 (101) 99 03/04/19 04:00 Mechanical Ventilator Mechanical Ventilator 03/04/19 04:00 23 Mechanical Ventilator 40 03/04/19 04:00 99.1 90 24 146/90 (108) 99 03/04/19 04:00 87 03/04/19 03:30 84 22 151/55 (87) 98 03/04/19 03:06 86 22 40 03/04/19 03:00 79 24 106/70 (82) 98 03/04/19 03:00 22 Mechanical Ventilator 40 03/04/19 02:30 85 23 150/54 (86) 99 03/04/19 02:00 79 24 146/49 (81) 98 03/04/19 02:00 22 Mechanical Ventilator 40 03/04/19 01:42 80 24 98 Mechanical Ventilator 40 03/04/19 01:30 79 24 148/56 (86) 100 03/04/19 01:27 81 22 98 Mechanical Ventilator 40 03/04/19 01:27 80 22 40 03/04/19 01:00 21 Mechanical Ventilator 40 03/04/19 01:00 75 24 142/49 (80) 98 03/04/19 00:37 21 Mechanical Ventilator 40 03/04/19 00:30 75 22 147/48 (81) 97 03/04/19 00:04 40 03/04/19 00:00 75 03/04/19 00:00 23 Mechanical Ventilator 40 03/04/19 00:00 100.2 75 23 147/48 (81) 98 03/04/19 00:00 Mechanical Ventilator Mechanical Ventilator 03/03/19 23:30 77 24 145/51 (82) 98 03/03/19 23:29 78 24 40 03/03/19 23:00 22 Mechanical Ventilator 40 03/03/19 23:00 79 25 142/59 (86) 99 03/03/19 22:30 76 24 142/47 (78) 99 03/03/19 22:13 144/54 03/03/19 22:12 144/54 03/03/19 22:00 78 24 144/54 (84) 98 03/03/19 22:00 24 Mechanical Ventilator 40 03/03/19 21:30 92 22 153/76 (101) 98 03/03/19 21:25 82 23 40 03/03/19 21:01 86 138/52 03/03/19 21:00 87 22 145/50 (81) 98 03/03/19 21:00 23 Mechanical Ventilator 40 03/03/19 20:30 82 24 138/52 (80) 98 03/03/19 20:05 84 03/03/19 20:05 40 03/03/19 20:02 Mechanical Ventilator Mechanical Ventilator 03/03/19 20:00 80 23 136/48 (77) 100 03/03/19 20:00 24 Mechanical Ventilator 40 03/03/19 19:53 86 24 100 Mechanical Ventilator 40 03/03/19 19:44 80 24 40 03/03/19 19:43 80 24 100 Mechanical Ventilator 40 03/03/19 19:30 100.1 78 23 146/52 (83) 99 03/03/19 19:00 23 Mechanical Ventilator 40 03/03/19 19:00 84 23 142/68 (92) 98 03/03/19 18:30 83 25 142/68 (92) 100 03/03/19 18:00 24 Mechanical Ventilator 40 03/03/19 18:00 79 23 142/66 (91) 100 03/03/19 17:30 77 25 140/56 (84) 95 03/03/19 17:20 77 26 40 03/03/19 17:00 78 27 140/56 (84) 99 03/03/19 17:00 24 Mechanical Ventilator 40 03/03/19 16:30 73 23 123/50 (74) 99 03/03/19 16:00 98.8 68 24 123/50 (74) 99 03/03/19 16:00 24 Mechanical Ventilator 40 03/03/19 16:00 Mechanical Ventilator Mechanical Ventilator 03/03/19 16:00 40 03/03/19 16:00 77 03/03/19 15:30 76 22 123/50 (74) 99 03/03/19 15:00 23 Mechanical Ventilator 40 03/03/19 15:00 84 23 140/80 (100) 99 03/03/19 14:45 81 24 40 03/03/19 14:30 96 21 140/80 (100) 98 03/03/19 14:16 17 40 03/03/19 14:15 23 Mechanical Ventilator 40 03/03/19 14:00 23 Mechanical Ventilator 40 03/03/19 14:00 103 23 110/97 (101) 100 03/03/19 13:45 86 20 110/97 (101) 100 03/03/19 13:42 85 28 100 Mechanical Ventilator 40 03/03/19 13:42 85 28 100 Mechanical Ventilator 40 03/03/19 13:30 85 18 110/97 (101) 100 Height (Feet): 6 Height (Inches): 0.00 Weight (Pounds): 260 General Appearance: other - on vent HEENT: normocephalic, atraumatic, anicteric Respiratory/Chest: crackles/rales, rhonchi - bilaterally Cardiovascular: normal rate, regular rhythm, no gallop/murmur, no JVD Abdomen: normal bowel sounds, soft, non tender, no organomegaly, non distended , other - + rectal tube Genitourinary: other - + smith - urine slt cloudy Extremities: no cyanosis Skin: no rash 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 Enteric tube courses past the diaphragm and out of the field of view. Lungs/pleura: Slightly decreased but persistent patchy consolidations in the right lung. Slightly decreased left perihilar opacities/consolidations. Possible small bilateral pleural effusions. Heart/mediastinum: Stable mild enlargement of the cardiomediastinal silhouette. Soft tissues: Unremarkable. Bones: No acute fracture. Degenerative changes of the visualized right acromioclavicular joint. Degenerative changes of the spine. Upper abdomen: Normal. 02/11/19 - chest x-ray - IMPRESSION: Slightly decreased but persistent patchy consolidations in the right lung. Slightly decreased left perihilar opacities. Findings may IMPRESSION: 1. No significant change in the interstitial and alveolar opacities in bilateral lungs. 2. Possible small bilateral pleural effusions, unchanged. represent infectious/inflammatory process and/or pulmonary edema. Possible small bilateral pleural effusions. 02/16/19 - chest x-ray - Impression: Worsening of aeration with increasing interstitial and bilateral predominantly perihilar airspace disease. Findings likely related to worsening CHF/pulmonary edema. Superimposed pneumonia to be excluded clinically. Follow-up recommended. Chest x-ray - 02/18/19 - COMPARISON: Chest radiograph on 02/16/2019 FINDINGS: Hardware: Endotracheal tube terminates in the region of the mid thoracic trachea. Enteric tube courses past the diaphragm and out of the field of view. Lungs/pleura: Slightly decreased but persistent hazy and interstitial opacities. Persistent small left pleural effusion. Heart/mediastinum: Stable mild enlargement of the cardiomediastinal silhouette. Soft tissues: Unremarkable. Bones: No acute fracture. Upper abdomen: Normal. IMPRESSION: Slightly decreased but persistent changes suggesting pulmonary edema. Component of infectious/inflammatory process is not excluded. Persistent small left pleural effusion. Chest x-ray - 02/20/19 - Procedure: XRAY Chest 1v Indication: Dyspnea Comparison: Earlier same day A single view chest radiograph was obtained. Findings: Intubation noted. The endotracheal tube is in good position about 3 cm above the christal. Cardiomegaly again noted. Moderate pulmonary vascular congestion demonstrated. IMPRESSION: Endotracheal tube in good position. CHF Chest x-ray - - FINDINGS: The tip of the endotracheal tube is appropriately positioned, projecting between the clavicular heads. The sidehole of the enteric tube projects within the stomach. Extensive bilateral consolidation is again noted. Favor multilobar pneumonia. Heart size is borderline, but likely exaggerated by portable technique. No pneumothorax. Bony degenerative changes. IMPRESSION: Extensive airspace consolidation, similar to prior. Favor multilobar pneumonia. Appropriately positioned tubes. Chest x-ray - 02/24/19 - IMPRESSION: No significant interval change compared to the prior chest x-ray. Cardiomegaly with diffuse interstitial and alveolar opacities, which may represent pulmonary edema versus pneumonia. Chest x-ray - 02/26/19 - IMPRESSION: No significant interval change compared to the prior chest x-ray. Cardiomegaly with diffuse interstitial and alveolar opacities, which may represent pulmonary edema versus pneumonia. Chest x-ray - 03/03/19 - Comparison: 02/26/2019 A single view chest radiograph was obtained. Findings: Central hilar edema with cephalization of pulmonary vessels and interstitial opacities likely due to CHF demonstrated. There is a probable left pleural effusion. NG tube and tracheostomy noted in good position. IMPRESSION: Status post tracheostomy. No pneumothorax Pulmonary edema. Microbiology Date/Time Source Procedure Growth Status 02/20/19 19:00 Blood Blood Culture - Final NO GROWTH AFTER 5 DAYS Complete 03/01/19 20:00 Sputum Induced Gram Stain - Final Complete 03/01/19 20:00 Sputum Induced Sputum Culture - Final NORMAL UPPER RESPIRATORY ADRIANA AT 48 ... Complete 03/03/19 18:00 Indwelling Cath Urine Culture - Preliminary NO GROWTH Resulted 02/06/19 17:10 Rectal Mucosa - Final NO CARBAPENEM-RESISTANT ENTEROBACTERI... Complete Microbiology Date/Time Source Procedure Growth Status 03/01/19 20:00 Sputum Induced Gram Stain - Final Complete 03/01/19 20:00 Sputum Induced Sputum Culture - Final NORMAL UPPER RESPIRATORY ADRIANA AT 48 ... Complete 03/03/19 18:00 Indwelling Cath Urine Culture - Preliminary NO GROWTH Resulted Laboratory Tests Test 03/04/19 05:59 White Blood Count 3.7 K/UL (4.8-10.8) L Red Blood Count 2.95 M/UL (4.70-6.10) L Hemoglobin 8.6 G/DL (14.2-18.0) L Hematocrit 25.9 % (42.0-52.0) L Mean Corpuscular Volume 88 FL (80-99) Mean Corpuscular Hemoglobin 29.1 PG (27.0-31.0) Mean Corpuscular Hemoglobin Concent 33.0 G/DL (32.0-36.0) Red Cell Distribution Width 16.9 % (11.6-14.8) H Platelet Count 105 K/UL (150-450) L Mean Platelet Volume 6.3 FL (6.5-10.1) L Neutrophils (%) (Auto) 67.9 % (45.0-75.0) Lymphocytes (%) (Auto) 16.1 % (20.0-45.0) L Monocytes (%) (Auto) 13.6 % (1.0-10.0) H Eosinophils (%) (Auto) 1.8 % (0.0-3.0) Basophils (%) (Auto) 0.6 % (0.0-2.0) Sodium Level 143 MMOL/L (136-145) Potassium Level 3.6 MMOL/L (3.5-5.1) Chloride Level 107 MMOL/L (98-107) Carbon Dioxide Level 29 MMOL/L (21-32) Anion Gap 7 mmol/L (5-15) Blood Urea Nitrogen 36 mg/dL (7-18) H Creatinine 1.8 MG/DL (0.55-1.30) H Estimat Glomerular Filtration Rate 38.8 mL/min (>60) Glucose Level 225 MG/DL (74-106) H Uric Acid 4.8 MG/DL (2.6-7.2) Calcium Level 9.0 MG/DL (8.5-10.1) Phosphorus Level 2.6 MG/DL (2.5-4.9) Magnesium Level 1.7 MG/DL (1.8-2.4) L Total Bilirubin 0.5 MG/DL (0.2-1.0) Aspartate Amino Transf (AST/SGOT) 78 U/L (15-37) H Alanine Aminotransferase (ALT/SGPT) 106 U/L (12-78) H Alkaline Phosphatase 131 U/L (46-116) H C-Reactive Protein, Quantitative 8.4 mg/dL (0.00-0.90) H Pro-B-Type Natriuretic Peptide 49658 pg/mL (0-125) H Total Protein 5.6 G/DL (6.4-8.2) L Albumin 2.1 G/DL (3.4-5.0) L Globulin 3.5 g/dL Albumin/Globulin Ratio 0.6 (1.0-2.7) L Random Vancomycin Level 8.0 ug/mL Current Medications Medications (Trade) Dose Ordered Sig/Marquis Route PRN Reason Start Time Stop Time Status Last Admin Dose Admin Acetaminophen (Tylenol) 650 mg Q4H PRN ORAL Mild Pain (Pain Scale 1-3) 02/07/19 11:15 03/08/19 17:29 03/04/19 12:34 Acetaminophen/ Butalbital/ Caffeine (Fioricet) 1 tab Q8H PRN ORAL For Headache 02/08/19 17:15 03/10/19 17:14 Albuterol/ Ipratropium (Albuterol/ Ipratropium) 3 ml Q6HRT HHN 03/03/19 19:00 03/08/19 18:59 03/04/19 13:11 Amlodipine Besylate (Norvasc) 10 mg DAILY NG 02/15/19 09:00 03/14/19 15:59 03/04/19 09:16 Artificial Tears (Lacri-Lube) 1 applic AC+HS BOTH EYES 02/18/19 06:30 03/20/19 06:29 03/04/19 10:58 Bisacodyl (Dulcolax) 5 mg DAILYPRN PRN ORAL Constipation 02/08/19 17:15 03/10/19 17:14 02/25/19 12:45 Chlorhexidine Gluconate (Jessy-Hex 2%) 1 applic DAILY@2000 TOPIC 02/25/19 20:00 03/27/19 19:59 03/03/19 21:00 Clonidine HCl (Catapres tab) 0.2 mg EVERY 8 HOURS NG 03/02/19 22:00 03/19/19 13:59 03/04/19 05:48 Dextrose (Dextrose 50%) 25 ml Q30M PRN IV Hypoglycemia 03/01/19 07:15 03/31/19 07:14 Dextrose (Dextrose 50%) 50 ml Q30M PRN IV Hypoglycemia 03/01/19 07:15 03/31/19 07:14 Docusate Sodium (Colace) 100 mg TID GT 02/12/19 18:00 03/12/19 08:59 03/04/19 12:34 Fentanyl Citrate 2500 mcg/Sodium Chloride 250 ml @ 0 mls/hr Q24H IV 03/03/19 00:00 03/10/19 00:00 03/04/19 10:58 Fluconazole/ Sodium Chloride 100 ml @ 100 mls/hr Q24H IV 03/03/19 18:00 03/10/19 17:59 03/03/19 18:17 Furosemide (Lasix) 40 mg DAILY IV 03/01/19 09:00 03/31/19 08:59 03/04/19 09:16 Guaifenesin (Mucinex ER) 600 mg TWICE A DAY ORAL 02/07/19 18:00 03/09/19 08:59 03/04/19 09:14 Heparin Sodium (Porcine) (Heparin 5000 units/ml) 5,000 units EVERY 12 HOURS SUBQ 02/26/19 21:00 03/28/19 20:59 03/04/19 09:17 Hydralazine HCl (Apresoline) 10 mg Q4H PRN IV bp over 165 syst 02/17/19 10:15 03/19/19 10:14 02/19/19 14:45 Hydralazine HCl (Apresoline) 50 mg Q8HR NG 02/22/19 14:00 03/21/19 21:59 03/04/19 05:48 Insulin Aspart (NovoLOG) EVERY 6 HOURS SUBQ 02/26/19 12:00 03/28/19 11:59 03/04/19 05:49 Insulin Detemir (Levemir) 16 units Q12HR SUBQ 03/04/19 09:00 04/01/19 20:59 03/04/19 09:26 Lorazepam (Ativan 2mg/ml 1ml) 2 mg Q2H PRN IV For Anxiety 02/27/19 13:48 03/06/19 13:47 03/04/19 04:22 Meropenem 1 gm/ Sodium Chloride 55 ml @ 110 mls/hr Q12HR IVPB 03/03/19 21:00 03/08/19 20:59 03/04/19 09:15 Metoclopramide HCl (Reglan) 5 mg Q8H IVP 02/26/19 09:00 03/28/19 08:59 03/04/19 09:16 Metolazone (Zaroxolyn) 10 mg DAILY NG 02/19/19 10:00 03/21/19 09:59 03/04/19 09:14 Metoprolol Tartrate (Lopressor) 100 mg Q12HR ORAL 02/22/19 21:00 03/08/19 20:59 03/04/19 09:15 Midazolam HCl (Versed 2mg/2ml vial) 1 mg Q2H PRN IVP Agitation 02/13/19 08:45 03/15/19 08:44 02/27/19 11:05 Neomycin/ Polymyxin/ Dexamethasone (Maxitrol Opth Oint) 1 applic BEDTIME BOTH EYES 02/18/19 21:00 03/20/19 20:59 03/03/19 21:00 Nitroglycerin (Ntg) 0.4 mg Q5M PRN SL Prn Chest Pain 02/07/19 11:00 03/08/19 17:29 02/08/19 07:42 Ondansetron HCl (Zofran) 4 mg Q6H PRN IVP Nausea & Vomiting 02/07/19 11:15 03/08/19 11:14 02/09/19 00:58 Pantoprazole (Protonix) 40 mg DAILY IVP 02/26/19 09:00 03/24/19 20:59 03/04/19 09:15 Patient Own Medication (Patient's Own Med) 1 ea BID ORAL 02/07/19 18:00 03/09/19 17:59 03/04/19 09:13 Patient Own Medication (Patient's Own Med) 1 ea Q48H ORAL 02/18/19 09:00 03/20/19 08:59 03/04/19 09:13 Patient Own Medication (Patient's Own Med) 2 ea DAILY ORAL 02/08/19 09:00 03/10/19 08:59 03/04/19 09:13 Polyethylene Glycol (Miralax) 17 gm BEDTIME ORAL 02/08/19 21:00 03/10/19 20:59 03/03/19 21:01 Sennosides (Senokot) 8.6 mg DAILY ORAL 02/13/19 12:00 03/15/19 11:59 03/04/19 09:21 Trimethoprim/ Sulfamethoxazole (Bactrim-DS) 1 tab DAILY ORAL 03/04/19 09:00 03/11/19 08:59 03/04/19 09:00 Vancomycin HCl (Vanco rx to dose) 1 ea DAILY PRN MISC Per rx protocol 03/03/19 11:00 04/02/19 10:59 Russ Tony MD Mar 04, 2019 13:22
--- NOTE | 2019-03-04 13:25 | NUR ---
NURSE NOTES: SEEN AND EXAMINED BY DR CRAWFORD. STILL WITH TEMP OF 100.2. WILL CONTINUE TO MONITOR.
--- NOTE | 2019-03-04 14:29 | NUR ---
NURSE NOTES: VSS. AFEBRILE, TEMP OF 98., ORALLY.
--- NOTE | 2019-03-04 15:46 | General Progress Note ---
Assessment/Plan Status: stable Assessment/Plan: 58 y Male admitted to the hospital due to fever, shortness of breath and chest pain. # Multilobar pneumonia in patient with HIV - Broad sp atbx started. Continue Zosyn, Vancomycin, Azithromycin, TM-SMX - Fluconazole per ID - Droplet precaution - Flu swab ordered. - Oxygen support, ventilatory support as not able to wean off ventilator due to agitation. Consider change of sedation agent from Fentanyl to Versed if indicated. - ID consult appreciated. Discussed today and monitor renal function as possibly change in creatinine due to TM-SMX -s/p PICC line, # Hypoxemic respiratory failure - Critical care follow up. Unable to wean off the ventilatior. - - s/p tracheostomy -Plan for PEG tuesday -Pt has no family to consent. PEG placement is urgent for the patient, two physician signed consent # Chest pain - EKG with bifascicular block RBB and LAFB, no ST changes. - Trend troponin x3 completed - ECHO completed with no WMA and preserved EF. Dr. Francois consulted. Consideration for outpatient cath vs possibly myocarditis due to underlying viral infection. No evidence of Takotsubo per TTE. - NGT prn - Pain control with morphine # HIV - Continue HARRT - VL is undetectable per patient report. T cell count > 400 - CD 4 count 191 # HTN - Resume home medication - Clonidine, Isordil added today. 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 Gasca for PRODUCT GRADER - plan to remove femoral access after PICC placement - Lasix 40 IV x 1 today -monitor renal fct and fluid status DVT and GI ppx Full code A total of 35 mins of critical care time was spent on this patient, dealing with hypoxemic resp failure requiring continuous mechanical ventilation, reviewing telemetry data, discussion with bedside PUMP PRESS OPERATOR Subjective Date patient seen: Mar 04, 2019 Allergies: Coded Allergies: No Known Allergies (Unverified , 02/05/13) Subjective Pt remains intubated and sedated, no acute overnight events, s/p trach 03/02/19, planning to have PEG placed tuesday, mental status improved Objective Last 24 Hour Vital Signs Date Time Temp Pulse Resp B/P (MAP) Pulse Ox O2 Delivery O2 Flow Rate FiO2 03/04/19 15:30 71 21 128/44 (72) 97 03/04/19 15:08 67 24 40 03/04/19 15:00 69 24 150/58 (88) 98 03/04/19 15:00 24 Mechanical Ventilator 40 03/04/19 14:30 71 17 133/50 (77) 98 03/04/19 14:28 133/50 03/04/19 14:27 133/50 03/04/19 14:00 84 17 133/50 (77) 98 03/04/19 14:00 21 Mechanical Ventilator 03/04/19 13:30 72 25 135/65 (88) 98 03/04/19 13:12 74 24 100 Mechanical Ventilator 40 03/04/19 13:12 64 24 40 03/04/19 13:04 100.2 03/04/19 13:00 68 24 155/85 (108) 97 03/04/19 13:00 24 Mechanical Ventilator 40 03/04/19 13:00 67 24 98 Mechanical Ventilator 40 03/04/19 12:30 79 23 153/78 (103) 98 03/04/19 12:00 Mechanical Ventilator Mechanical Ventilator 03/04/19 12:00 100.5 74 24 157/66 (96) 98 03/04/19 12:00 40 03/04/19 12:00 24 Mechanical Ventilator 30 03/04/19 12:00 79 03/04/19 12:00 40 03/04/19 11:30 73 20 147/47 (80) 99 03/04/19 11:28 99.0 03/04/19 11:00 69 24 146/50 (82) 99 03/04/19 10:58 24 Mechanical Ventilator 03/04/19 10:45 73 24 40 03/04/19 10:30 73 24 142/43 (76) 98 03/04/19 10:00 24 Mechanical Ventilator 03/04/19 10:00 75 24 150/56 (87) 99 03/04/19 09:30 94 23 150/56 (87) 98 03/04/19 09:16 93 172/57 03/04/19 09:15 94 172/57 03/04/19 09:00 90 20 160/71 (100) 99 03/04/19 09:00 24 Mechanical Ventilator 03/04/19 08:58 90 23 40 03/04/19 08:30 99.5 91 22 156/60 (92) 99 03/04/19 08:30 86 22 154/60 (91) 99 03/04/19 08:00 Mechanical Ventilator Mechanical Ventilator 03/04/19 08:00 88 03/04/19 08:00 40 03/04/19 08:00 18 Mechanical Ventilator 40 03/04/19 08:00 91 22 156/62 (93) 99 03/04/19 07:30 89 22 149/59 (89) 99 03/04/19 07:02 78 24 99 Mechanical Ventilator 40 03/04/19 07:00 82 23 149/59 (89) 99 03/04/19 07:00 23 Mechanical Ventilator 40 03/04/19 06:52 90 24 40 03/04/19 06:47 80 24 99 Mechanical Ventilator 40 03/04/19 06:30 80 10 148/53 (84) 98 03/04/19 06:00 21 Mechanical Ventilator 40 03/04/19 06:00 90 22 138/120 (126) 99 03/04/19 05:48 148/56 03/04/19 05:48 148/56 03/04/19 05:30 84 24 148/56 (86) 98 03/04/19 05:07 87 24 40 03/04/19 05:00 88 2 153/62 (92) 98 03/04/19 05:00 23 Mechanical Ventilator 40 03/04/19 04:30 99 20 158/73 (101) 99 03/04/19 04:00 Mechanical Ventilator Mechanical Ventilator 03/04/19 04:00 23 Mechanical Ventilator 40 03/04/19 04:00 99.1 90 24 146/90 (108) 99 03/04/19 04:00 87 03/04/19 03:30 84 22 151/55 (87) 98 03/04/19 03:06 86 22 40 03/04/19 03:00 79 24 106/70 (82) 98 03/04/19 03:00 22 Mechanical Ventilator 40 03/04/19 02:30 85 23 150/54 (86) 99 03/04/19 02:00 79 24 146/49 (81) 98 03/04/19 02:00 22 Mechanical Ventilator 40 03/04/19 01:42 80 24 98 Mechanical Ventilator 40 03/04/19 01:30 79 24 148/56 (86) 100 03/04/19 01:27 81 22 98 Mechanical Ventilator 40 03/04/19 01:27 80 22 40 03/04/19 01:00 21 Mechanical Ventilator 40 03/04/19 01:00 75 24 142/49 (80) 98 03/04/19 00:37 21 Mechanical Ventilator 40 03/04/19 00:30 75 22 147/48 (81) 97 03/04/19 00:04 40 03/04/19 00:00 75 03/04/19 00:00 23 Mechanical Ventilator 40 03/04/19 00:00 100.2 75 23 147/48 (81) 98 03/04/19 00:00 Mechanical Ventilator Mechanical Ventilator 03/03/19 23:30 77 24 145/51 (82) 98 03/03/19 23:29 78 24 40 03/03/19 23:00 22 Mechanical Ventilator 40 03/03/19 23:00 79 25 142/59 (86) 99 03/03/19 22:30 76 24 142/47 (78) 99 03/03/19 22:13 144/54 03/03/19 22:12 144/54 03/03/19 22:00 78 24 144/54 (84) 98 03/03/19 22:00 24 Mechanical Ventilator 40 03/03/19 21:30 92 22 153/76 (101) 98 03/03/19 21:25 82 23 40 03/03/19 21:01 86 138/52 03/03/19 21:00 87 22 145/50 (81) 98 03/03/19 21:00 23 Mechanical Ventilator 40 03/03/19 20:30 82 24 138/52 (80) 98 03/03/19 20:05 84 03/03/19 20:05 40 03/03/19 20:02 Mechanical Ventilator Mechanical Ventilator 03/03/19 20:00 80 23 136/48 (77) 100 03/03/19 20:00 24 Mechanical Ventilator 40 03/03/19 19:53 86 24 100 Mechanical Ventilator 40 03/03/19 19:44 80 24 40 03/03/19 19:43 80 24 100 Mechanical Ventilator 40 03/03/19 19:30 100.1 78 23 146/52 (83) 99 03/03/19 19:00 23 Mechanical Ventilator 40 03/03/19 19:00 84 23 142/68 (92) 98 03/03/19 18:30 83 25 142/68 (92) 100 03/03/19 18:00 24 Mechanical Ventilator 40 03/03/19 18:00 79 23 142/66 (91) 100 03/03/19 17:30 77 25 140/56 (84) 95 03/03/19 17:20 77 26 40 03/03/19 17:00 78 27 140/56 (84) 99 03/03/19 17:00 24 Mechanical Ventilator 40 03/03/19 16:30 73 23 123/50 (74) 99 03/03/19 16:00 98.8 68 24 123/50 (74) 99 03/03/19 16:00 24 Mechanical Ventilator 40 03/03/19 16:00 Mechanical Ventilator Mechanical Ventilator 03/03/19 16:00 40 03/03/19 16:00 77 Intake and Output 03/03/19 03/04/19 18:59 06:59 Intake Total 944.00 ml 1091 ml Output Total 2795 ml 1250 ml Balance -1851.00 ml -159 ml Free Water 100 ml IV Total 278.00 ml 455 ml Tube Feeding 516 ml 516 ml Other 50 ml 120 ml Output Urine Total 2625 ml 1200 ml Stool Total 170 ml 50 ml Laboratory Tests 03/04/19 05:59: White Blood Count 3.7L, Red Blood Count 2.95L, Hemoglobin 8.6L, Hematocrit 25.9L , Mean Corpuscular Volume 88, Mean Corpuscular Hemoglobin 29.1, Mean Corpuscular Hemoglobin Concent 33.0, Red Cell Distribution Width 16.9H, Platelet Count 105L, Mean Platelet Volume 6.3L, Neutrophils (%) (Auto) 67.9, Lymphocytes (%) (Auto) 16.1L, Monocytes (%) (Auto) 13.6H, Eosinophils (%) (Auto ) 1.8, Basophils (%) (Auto) 0.6, Sodium Level 143, Potassium Level 3.6, Chloride Level 107, Carbon Dioxide Level 29, Anion Gap 7, Blood Urea Nitrogen 36H, Creatinine 1.8H, Estimat Glomerular Filtration Rate 38.8, Glucose Level 225H, Uric Acid 4.8, Calcium Level 9.0, Phosphorus Level 2.6, Magnesium Level 1.7L, Total Bilirubin 0.5, Aspartate Amino Transf (AST/SGOT) 78H, Alanine Aminotransferase (ALT/SGPT) 106H, Alkaline Phosphatase 131H, C-Reactive Protein , Quantitative 8.4H, Pro-B-Type Natriuretic Peptide 48538F, Total Protein 5.6L, Albumin 2.1L, Globulin 3.5, Albumin/Globulin Ratio 0.6L, Random Vancomycin Level 8.0 Height (Feet): 6 Height (Inches): 0.00 Weight (Pounds): 260 Objective General Appearance: intubated, no agitation EENT: intubated Neck: non-tender, normal alignment, trach in place Cardiovascular: normal peripheral pulses, normal rate Respiratory/Chest: chest wall non-tender, lungs clear Abdomen: normal bowel sounds, non tender Extremities: normal range of motion, non-tender Edema: trace edema 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
--- NOTE | 2019-03-04 16:30 | NUR ---
NURSE NOTES: PATIENT KEPT CLEAN AND DRY. REPOSITIONED AND SUCTIONED PATIENT. PATIENT NOTED TO BE MORE RESPONSIVE. WILL CONTINUE TO MONITOR.
--- NOTE | 2019-03-04 17:07 | Neurology Progress Note ---
Interim History Interim History ROS Limited/Unobtainable: Yes Complaints: AMS Interim History wakes up can tell me his name and follows simple commands Objective Physical Exam Last Vital Signs Date Time Temp Pulse Resp B/P (MAP) Pulse Ox O2 Delivery O2 Flow Rate FiO2 03/04/19 17:00 15 Mechanical Ventilator 03/04/19 16:30 74 144/47 (79) 100 03/04/19 16:00 98.7 03/04/19 16:00 40 02/26/19 12:53 75.0 Laboratory Tests Test 03/04/19 05:59 White Blood Count 3.7 K/UL (4.8-10.8) L Red Blood Count 2.95 M/UL (4.70-6.10) L Hemoglobin 8.6 G/DL (14.2-18.0) L Hematocrit 25.9 % (42.0-52.0) L Mean Corpuscular Volume 88 FL (80-99) Mean Corpuscular Hemoglobin 29.1 PG (27.0-31.0) Mean Corpuscular Hemoglobin Concent 33.0 G/DL (32.0-36.0) Red Cell Distribution Width 16.9 % (11.6-14.8) H Platelet Count 105 K/UL (150-450) L Mean Platelet Volume 6.3 FL (6.5-10.1) L Neutrophils (%) (Auto) 67.9 % (45.0-75.0) Lymphocytes (%) (Auto) 16.1 % (20.0-45.0) L Monocytes (%) (Auto) 13.6 % (1.0-10.0) H Eosinophils (%) (Auto) 1.8 % (0.0-3.0) Basophils (%) (Auto) 0.6 % (0.0-2.0) Sodium Level 143 MMOL/L (136-145) Potassium Level 3.6 MMOL/L (3.5-5.1) Chloride Level 107 MMOL/L (98-107) Carbon Dioxide Level 29 MMOL/L (21-32) Anion Gap 7 mmol/L (5-15) Blood Urea Nitrogen 36 mg/dL (7-18) H Creatinine 1.8 MG/DL (0.55-1.30) H Estimat Glomerular Filtration Rate 38.8 mL/min (>60) Glucose Level 225 MG/DL (74-106) H Uric Acid 4.8 MG/DL (2.6-7.2) Calcium Level 9.0 MG/DL (8.5-10.1) Phosphorus Level 2.6 MG/DL (2.5-4.9) Magnesium Level 1.7 MG/DL (1.8-2.4) L Total Bilirubin 0.5 MG/DL (0.2-1.0) Aspartate Amino Transf (AST/SGOT) 78 U/L (15-37) H Alanine Aminotransferase (ALT/SGPT) 106 U/L (12-78) H Alkaline Phosphatase 131 U/L (46-116) H C-Reactive Protein, Quantitative 8.4 mg/dL (0.00-0.90) H Pro-B-Type Natriuretic Peptide 19733 pg/mL (0-125) H Total Protein 5.6 G/DL (6.4-8.2) L Albumin 2.1 G/DL (3.4-5.0) L Globulin 3.5 g/dL Albumin/Globulin Ratio 0.6 (1.0-2.7) L Random Vancomycin Level 8.0 ug/mL General: well developed, well nourished, other Head: normocophalic, other Neck: no rigidity EENT: benign, other Neurologic Exam Mental Status: awake, other Speech: other Language: other Cranial Nerve II: other Cranial Nerves III, IV, : other Cranial Nerve V: other Cranial Nerve VII: other Cranial Nerve VIII: other Cranial Nerve IX: other Cranial Nerve X: other Cranial Nerve XI: other Cranial Nerve XII: other Motor System: other Sensory: other Coordination: other Deep Tendon Reflexes: 0 bicep (L), 0 bicep (R), 0 tricep (L), 0 tricep (R), 0 brachioradialis (L), 0 brachioradialis (R), 0 knee (L), 0 knee (R), 0 ankle (L) , 0 ankle (R) Reflexes: mute plantar (L), mute plantar (R) Stance: other Gait: other Objective sp trach awake, can tell me his name pupils are symmetric and reactive corneals present Antigravity in all 4 symmetric Impression/Recommendations Problems: (1) AIDS (2) Anemia (3) Anxiety (4) Diabetes (5) Hypertension (6) HIV disease (7) CKD (chronic kidney disease) (8) History of stroke (9) NSTEMI (non-ST elevated myocardial infarction) (10) MDD (major depressive disorder), recurrent episode, moderate (11) Respiratory distress (12) Hypoxia (13) HIV (human immunodeficiency virus infection) (14) Acute coronary syndrome (15) Elevated troponin (16) Pneumonia (17) Acute hypoxemic respiratory failure (18) Endotracheally intubated (19) ISH (acute kidney injury) (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 (33) acute small R pontomedullary and left cerebellar peduncle strokes. (34) r/o cerebellar stroke (35) acute ischemic CREDIT COLLECTIONS ANALYST stroke, bylateral (36) Bylateral CREDIT COLLECTIONS ANALYST severe stenosis (37) Chemosis of conjunctiva of both eyes (38) Respiratory failure Status: stable Recommendations monitor neuro status vent management per icu map > 65 no focal neuro exam - monitor on fentanyl drip intermittently follows midline commands Mayito Escobar MD Mar 04, 2019 17:07
[2019-03-04] MEDS ORDERED: NS 275ml ONE (17:11)
--- NOTE | 2019-03-04 18:21 | NUR ---
NURSE NOTES: BS CHECKED. HELD FEEDING. NO INSULIN COVERAGE. VSS. NO SIGNS OF DISTRESS. WILL CONTINUE TO MONITOR.
--- NOTE | 2019-03-04 19:06 | NUR ---
HAND-OFF: Report given to TESSA Bell.
--- NOTE | 2019-03-04 19:30 | NUR ---
NURSE NOTES: Received pt in no acute distress. Eyes opens to name, Modesta. Remains vented per trach, sats 96-98% on .40 fiO2. Secretions scanty via trach. Temp 99.2 axillary. NSR, BP stable. PICC on KATIE patent; Fentanyl gtt continues at 250mcg/h to RASS-2. Bilat soft wrist restraints continues to be on as pt tends to be impulsive and confused. NGT to Left nare in situ but currently TF off; pt NPO for planned PEG placement in AM. Rectal tube patent,draining liquid brown stool. FC patent, UOP 125-200ml/h. Will continue to monitor sedation status and vital signs
--- NOTE | 2019-03-04 19:41 | Cardiac Electrophysiology PN ---
Assessment/Plan Assessment/Plan 1. Non-ST elevation myocardial infarction with peak troponin of more than 10, down to 3.[address]-T wave abnormalities. Continue Lipitor, Imdur and metoprolol Not a candidate for Cardiac catheterization 2. Hypertension. Metoprolol 100 bid, Isordil 20 q6 , Clonidine 0.1 bid, Lasix 40 iv daily, Metolazone 5, Norvasc 10 daily and hydralazine 50 q 8 hr On Clonidine 0.2 q 8hrs 3. Respiratory failure due to Multilobar Pneumonia. Extubated 02/19/19. Reintubated 02/20/19 S/P Tracheostomy 03/02/19 4. Hyperlipidemia. On Lipitor. 5. Human immunodeficiency virus. On anti-retroviral therapy with undetectable viral load. 6. ARF Cr 3 7. Bleeding from ETT and NG tube. S/P PRBC. Off Aspirin and Lovenox No further bleeding 8. Dysphagia. PEG tomorrow DW RN Subjective Subjective In ICU on the vent via Tracheostomy. Scheduled for PEG tomorrow Objective Last 24 Hour Vital Signs Date Time Temp Pulse Resp B/P (MAP) Pulse Ox O2 Delivery O2 Flow Rate FiO2 03/04/19 19:22 75 24 40 03/04/19 19:20 76 24 100 Mechanical Ventilator 40 03/04/19 19:10 69 24 99 Mechanical Ventilator 40 03/04/19 19:00 24 Mechanical Ventilator 03/04/19 19:00 69 22 118/63 (81) 99 03/04/19 18:30 71 24 133/59 (83) 99 03/04/19 18:00 23 Mechanical Ventilator 40 03/04/19 18:00 73 24 136/72 (93) 100 03/04/19 17:30 83 20 154/70 (98) 100 03/04/19 17:21 72 24 40 03/04/19 17:00 71 18 154/70 (98) 100 03/04/19 17:00 15 Mechanical Ventilator 03/04/19 16:30 74 24 144/47 (79) 100 03/04/19 16:00 98.7 69 24 150/52 (84) 99 03/04/19 16:00 Mechanical Ventilator Mechanical Ventilator 03/04/19 16:00 40 03/04/19 16:00 71 03/04/19 16:00 24 Mechanical Ventilator 40 03/04/19 15:30 71 21 128/44 (72) 97 03/04/19 15:08 67 24 40 03/04/19 15:00 69 24 150/58 (88) 98 03/04/19 15:00 24 Mechanical Ventilator 40 03/04/19 14:30 71 17 133/50 (77) 98 03/04/19 14:28 133/50 03/04/19 14:27 133/50 03/04/19 14:00 84 17 133/50 (77) 98 03/04/19 14:00 21 Mechanical Ventilator 03/04/19 13:30 72 25 135/65 (88) 98 03/04/19 13:12 74 24 100 Mechanical Ventilator 40 03/04/19 13:12 64 24 40 03/04/19 13:04 100.2 03/04/19 13:00 68 24 155/85 (108) 97 03/04/19 13:00 24 Mechanical Ventilator 40 03/04/19 13:00 67 24 98 Mechanical Ventilator 40 03/04/19 12:30 79 23 153/78 (103) 98 03/04/19 12:00 Mechanical Ventilator Mechanical Ventilator 03/04/19 12:00 100.5 74 24 157/66 (96) 98 03/04/19 12:00 40 03/04/19 12:00 24 Mechanical Ventilator 30 03/04/19 12:00 79 03/04/19 12:00 40 03/04/19 11:30 73 20 147/47 (80) 99 03/04/19 11:28 99.0 03/04/19 11:00 69 24 146/50 (82) 99 03/04/19 10:58 24 Mechanical Ventilator 03/04/19 10:45 73 24 40 03/04/19 10:30 73 24 142/43 (76) 98 03/04/19 10:00 24 Mechanical Ventilator 03/04/19 10:00 75 24 150/56 (87) 99 03/04/19 09:30 94 23 150/56 (87) 98 03/04/19 09:16 93 172/57 03/04/19 09:15 94 172/57 03/04/19 09:00 90 20 160/71 (100) 99 03/04/19 09:00 24 Mechanical Ventilator 03/04/19 08:58 90 23 40 03/04/19 08:30 99.5 91 22 156/60 (92) 99 03/04/19 08:30 86 22 154/60 (91) 99 03/04/19 08:00 Mechanical Ventilator Mechanical Ventilator 03/04/19 08:00 88 03/04/19 08:00 40 03/04/19 08:00 18 Mechanical Ventilator 40 03/04/19 08:00 91 22 156/62 (93) 99 03/04/19 07:30 89 22 149/59 (89) 99 03/04/19 07:02 78 24 99 Mechanical Ventilator 40 03/04/19 07:00 82 23 149/59 (89) 99 03/04/19 07:00 23 Mechanical Ventilator 40 03/04/19 06:52 90 24 40 03/04/19 06:47 80 24 99 Mechanical Ventilator 40 03/04/19 06:30 80 10 148/53 (84) 98 03/04/19 06:00 21 Mechanical Ventilator 40 03/04/19 06:00 90 22 138/120 (126) 99 03/04/19 05:48 148/56 03/04/19 05:48 148/56 03/04/19 05:30 84 24 148/56 (86) 98 03/04/19 05:07 87 24 40 03/04/19 05:00 88 2 153/62 (92) 98 03/04/19 05:00 23 Mechanical Ventilator 40 03/04/19 04:30 99 20 158/73 (101) 99 03/04/19 04:00 Mechanical Ventilator Mechanical Ventilator 03/04/19 04:00 23 Mechanical Ventilator 40 03/04/19 04:00 99.1 90 24 146/90 (108) 99 03/04/19 04:00 87 03/04/19 03:30 84 22 151/55 (87) 98 03/04/19 03:06 86 22 40 03/04/19 03:00 79 24 106/70 (82) 98 03/04/19 03:00 22 Mechanical Ventilator 40 03/04/19 02:30 85 23 150/54 (86) 99 03/04/19 02:00 79 24 146/49 (81) 98 03/04/19 02:00 22 Mechanical Ventilator 40 03/04/19 01:42 80 24 98 Mechanical Ventilator 40 03/04/19 01:30 79 24 148/56 (86) 100 03/04/19 01:27 81 22 98 Mechanical Ventilator 40 03/04/19 01:27 80 22 40 03/04/19 01:00 21 Mechanical Ventilator 40 03/04/19 01:00 75 24 142/49 (80) 98 03/04/19 00:37 21 Mechanical Ventilator 40 03/04/19 00:30 75 22 147/48 (81) 97 03/04/19 00:04 40 03/04/19 00:00 75 03/04/19 00:00 23 Mechanical Ventilator 40 03/04/19 00:00 100.2 75 23 147/48 (81) 98 03/04/19 00:00 Mechanical Ventilator Mechanical Ventilator 03/03/19 23:30 77 24 145/51 (82) 98 03/03/19 23:29 78 24 40 03/03/19 23:00 22 Mechanical Ventilator 40 03/03/19 23:00 79 25 142/59 (86) 99 03/03/19 22:30 76 24 142/47 (78) 99 03/03/19 22:13 144/54 03/03/19 22:12 144/54 03/03/19 22:00 78 24 144/54 (84) 98 03/03/19 22:00 24 Mechanical Ventilator 40 03/03/19 21:30 92 22 153/76 (101) 98 03/03/19 21:25 82 23 40 03/03/19 21:01 86 138/52 03/03/19 21:00 87 22 145/50 (81) 98 03/03/19 21:00 23 Mechanical Ventilator 40 03/03/19 20:30 82 24 138/52 (80) 98 03/03/19 20:05 84 03/03/19 20:05 40 03/03/19 20:02 Mechanical Ventilator Mechanical Ventilator 03/03/19 20:00 80 23 136/48 (77) 100 03/03/19 20:00 24 Mechanical Ventilator 40 03/03/19 19:53 86 24 100 Mechanical Ventilator 40 03/03/19 19:44 80 24 40 03/03/19 19:43 80 24 100 Mechanical Ventilator 40 Intake and Output 03/03/19 03/04/19 19:00 07:00 Intake Total 961.00 ml 1091 ml Output Total 2600 ml 1250 ml Balance -1639.00 ml -159 ml Free Water 100 ml IV Total 295.00 ml 455 ml Tube Feeding 516 ml 516 ml Other 50 ml 120 ml Output Urine Total 2550 ml 1200 ml Stool Total 50 ml 50 ml Laboratory Tests Test 03/04/19 05:59 White Blood Count 3.7 K/UL (4.8-10.8) L Red Blood Count 2.95 M/UL (4.70-6.10) L Hemoglobin 8.6 G/DL (14.2-18.0) L Hematocrit 25.9 % (42.0-52.0) L Mean Corpuscular Volume 88 FL (80-99) Mean Corpuscular Hemoglobin 29.1 PG (27.0-31.0) Mean Corpuscular Hemoglobin Concent 33.0 G/DL (32.0-36.0) Red Cell Distribution Width 16.9 % (11.6-14.8) H Platelet Count 105 K/UL (150-450) L Mean Platelet Volume 6.3 FL (6.5-10.1) L Neutrophils (%) (Auto) 67.9 % (45.0-75.0) Lymphocytes (%) (Auto) 16.1 % (20.0-45.0) L Monocytes (%) (Auto) 13.6 % (1.0-10.0) H Eosinophils (%) (Auto) 1.8 % (0.0-3.0) Basophils (%) (Auto) 0.6 % (0.0-2.0) Sodium Level 143 MMOL/L (136-145) Potassium Level 3.6 MMOL/L (3.5-5.1) Chloride Level 107 MMOL/L (98-107) Carbon Dioxide Level 29 MMOL/L (21-32) Anion Gap 7 mmol/L (5-15) Blood Urea Nitrogen 36 mg/dL (7-18) H Creatinine 1.8 MG/DL (0.55-1.30) H Estimat Glomerular Filtration Rate 38.8 mL/min (>60) Glucose Level 225 MG/DL (74-106) H Uric Acid 4.8 MG/DL (2.6-7.2) Calcium Level 9.0 MG/DL (8.5-10.1) Phosphorus Level 2.6 MG/DL (2.5-4.9) Magnesium Level 1.7 MG/DL (1.8-2.4) L Total Bilirubin 0.5 MG/DL (0.2-1.0) Aspartate Amino Transf (AST/SGOT) 78 U/L (15-37) H Alanine Aminotransferase (ALT/SGPT) 106 U/L (12-78) H Alkaline Phosphatase 131 U/L (46-116) H C-Reactive Protein, Quantitative 8.4 mg/dL (0.00-0.90) H Pro-B-Type Natriuretic Peptide 64320 pg/mL (0-125) H Total Protein 5.6 G/DL (6.4-8.2) L Albumin 2.1 G/DL (3.4-5.0) L Globulin 3.5 g/dL Albumin/Globulin Ratio 0.6 (1.0-2.7) L Random Vancomycin Level 8.0 ug/mL Microbiology Date/Time Source Procedure Growth Status 03/01/19 20:00 Sputum Induced Gram Stain - Final Complete 03/01/19 20:00 Sputum Induced Sputum Culture - Final NORMAL UPPER RESPIRATORY ADRIANA AT 47 ... Complete 03/03/19 18:00 Indwelling Cath Urine Culture - Preliminary NO GROWTH Resulted Objective HEAD AND NECK: No JVD. S/P tracheostomy with NG tube LUNGS: Coarse rhonchi. CARDIOVASCULAR: Regular S1 and S2 with no gallop or murmur. ABDOMEN: Soft. EXTREMITIES: 1 plus pitting edema. Murray Francois MD Mar 04, 2019 19:41
[2019-03-04] MEDS: Dyna-Hex 2% Top Sol 2oz TOPIC SCH (20:56)
[2019-03-04] MEDS: Maxitrol Opth Oint 3.5gm BOTH EYES SCH (20:57)
[2019-03-04] MEDS: Miralax 17gm pkt ORAL SCH (21:00)
--- NOTE | 2019-03-04 21:00 | NUR ---
NURSE NOTES:Half dose of Levemir given as pt remains NPO. Calm, asleep. No distress.
[2019-03-05] VITALS (44 sets, daily range): BP systolic 109–162; BP diastolic 48–128
--- NOTE | 2019-03-05 | NUR ---
NURSE NOTES: Calm,half asleep. VSS. Temp 99 axillary. Good UOP. Accucheck 91 no coverage. Pt remains NPO. Trach site shows no signs of bleeding. No vent changes.
[2019-03-05] MEDS: Metoclopramide 10mg/2ml Inj IVP SCH ×3 (00:58→17:49)
[2019-03-05] MEDS: Albuterol/Ipratropium 3ml neb HHN SCH ×4 (01:11→19:05)
--- NOTE | 2019-03-05 02:00 | NUR ---
NURSE NOTES: Asleep; calm; VSS, no distress.
--- NOTE | 2019-03-05 04:00 | NUR ---
NURSE NOTES: Complete bed bath given. No new skin breakdown. PICC line dressing changed, applied stat lock. Temp 99 axillary. Rectal tube irrigated. Fentanyl gtt continues at 250mcg/h.
--- NOTE | 2019-03-05 05:00 | NUR ---
NURSE NOTES: Titrated Fentanyl gtt down to 200mcg/h. Pt calm but awake.
--- NOTE | 2019-03-05 05:30 | NUR ---
NURSE NOTES: Marcell 67 but pt asymptomatic. 1 amp D50 IVP given Addendum: 03/05/19 at 0613 by CAROLYNE ALLEN RN Called Dr Lutz.
[2019-03-05] MEDS: NovoLOG Insulin Flexpen SUBQ SCH ×5 (05:33→23:31)
[2019-03-05] MEDS: HydrALAZINE 50mg tab NG SCH ×3 (05:33→22:49)
[2019-03-05] MEDS: cloNIDine 0.2mg Tab NG SCH ×3 (05:34→22:49)
[2019-03-05] MEDS: Lacri-Lube Opth Oint 3.5gm BOTH EYES SCH ×4 (05:35→20:58)
[2019-03-05 05:37] LABS: HEMOGLOBIN 8.2 G/DL (14.2-18.0); MEAN CORPUSCULAR VOLUME 88 FL (80-99); PLATELET COUNT 96 K/UL (150-450); RED BLOOD COUNT 2.84 M/UL (4.70-6.10); RED CELL DISTRIBUTION WIDTH 16.8 % (11.6-14.8); WHITE BLOOD COUNT 3.4 K/UL (4.8-10.8)
[2019-03-05 06:09] LABS: PHOSPHORUS 2.2 MG/DL (2.5-4.9)
[2019-03-05 06:13] LABS: ALANINE AMINOTRANSFERASE 76 U/L (12-78); ALBUMIN 2.1 G/DL (3.4-5.0); ALBUMIN/GLOBULIN RATIO 0.7 (1.0-2.7); ALKALINE PHOSPHATASE 108 U/L (46-116); ANION GAP 8 mmol/L (5-15); ASPARTATE AMINO TRANSFERASE 58 U/L (15-37); BILIRUBIN,TOTAL 0.6 MG/DL (0.2-1.0); BLOOD UREA NITROGEN 32 mg/dL (7-18); CARBON DIOXIDE 29 MMOL/L (21-32); CHLORIDE 103 MMOL/L (98-107); CREATININE 1.6 MG/DL (0.55-1.30); POTASSIUM 3.4 MMOL/L (3.5-5.1); SODIUM 140 MMOL/L (136-145)
--- NOTE | 2019-03-05 06:13 | NUR ---
NURSE NOTES: Repeat accucheck= 123. Awaiting response from Dr Lutz
--- NOTE | 2019-03-05 06:36 | General Progress Note ---
Assessment/Plan Problem List: (1) ISH (acute kidney injury) ICD Codes: N17.9 - Acute kidney failure, unspecified SNOMED: 16964039 (2) Uncontrolled type 2 diabetes mellitus with chronic kidney disease ICD Codes: E11.22 - Type 2 diabetes mellitus with diabetic chronic kidney disease; E11.65 - Type 2 diabetes mellitus with hyperglycemia SNOMED: 04293439, 185837383, [id number] (3) HIV disease ICD Codes: B20 - Human immunodeficiency virus [HIV] disease SNOMED: 34570251 (4) Respiratory distress ICD Codes: R06.03 - Acute respiratory distress SNOMED: 785234770 Status: stable Assessment/Plan: - continue Novolog sliding scale every 6 hours - reduce Levemir to 10 units bid Subjective ROS Limited/Unobtainable: Yes Allergies: Coded Allergies: No Known Allergies (Unverified , 02/05/13) Subjective events noted trach - vent hypoglycemia this morning Item Value Date Time Bedside Blood Glucose 68 mg/dl L 03/05/19 0607 Bedside Blood Glucose 91 mg/dl 03/05/19 0000 Bedside Blood Glucose 105 mg/dl 03/04/19 2100 Bedside Blood Glucose 118 mg/dl 03/04/19 1800 Bedside Blood Glucose 222 mg/dl H 03/04/19 1200 Bedside Blood Glucose 212 mg/dl H 03/04/19 0926 Objective Last 24 Hour Vital Signs Date Time Temp Pulse Resp B/P (MAP) Pulse Ox O2 Delivery O2 Flow Rate FiO2 03/05/19 06:00 24 Mechanical Ventilator 40 03/05/19 06:00 86 23 156/61 (92) 100 03/05/19 05:34 160/128 03/05/19 05:33 160/128 03/05/19 05:30 88 23 162/64 (96) 100 03/05/19 05:24 86 25 40 03/05/19 05:00 83 23 160/128 (139) 100 03/05/19 05:00 24 Mechanical Ventilator 40 03/05/19 04:30 84 22 160/58 (92) 100 03/05/19 04:00 83 03/05/19 04:00 99.0 94 25 109/57 (74) 99 03/05/19 04:00 Mechanical Ventilator Mechanical Ventilator 03/05/19 04:00 24 Mechanical Ventilator 40 03/05/19 04:00 40 03/05/19 03:30 82 22 150/52 (84) 98 03/05/19 03:07 76 22 40 03/05/19 03:00 21 Mechanical Ventilator 40 03/05/19 03:00 95 24 154/61 (92) 98 03/05/19 02:30 78 20 147/53 (84) 100 03/05/19 02:00 22 Mechanical Ventilator 40 03/05/19 02:00 79 14 148/54 (85) 99 03/05/19 01:30 84 21 145/59 (87) 99 03/05/19 01:13 77 25 99 Mechanical Ventilator 40 03/05/19 01:11 78 24 40 03/05/19 01:00 77 20 148/98 (115) 99 03/05/19 01:00 22 Mechanical Ventilator 40 03/05/19 01:00 74 25 97 Mechanical Ventilator 40 03/05/19 00:30 81 17 143/56 (85) 100 03/05/19 00:00 98.7 76 23 147/53 (84) 100 03/05/19 00:00 84 03/05/19 00:00 40 03/05/19 00:00 Mechanical Ventilator Mechanical Ventilator 03/05/19 00:00 22 Mechanical Ventilator 40 03/04/19 23:30 75 24 40 03/04/19 23:30 73 24 140/52 (81) 100 03/04/19 23:01 71 21 142/58 (86) 96 03/04/19 23:00 24 Mechanical Ventilator 40 03/04/19 22:48 24 Mechanical Ventilator 40 03/04/19 22:30 71 18 142/56 (84) 99 03/04/19 22:00 18 Mechanical Ventilator 40 03/04/19 22:00 75 14 139/49 (79) 98 03/04/19 21:54 141/53 03/04/19 21:54 141/53 03/04/19 21:30 82 33 40 03/04/19 21:30 84 23 141/53 (82) 98 03/04/19 21:00 23 Mechanical Ventilator 40 03/04/19 21:00 89 23 155/57 (89) 100 03/04/19 20:57 80 138/55 03/04/19 20:30 80 24 138/55 (82) 99 03/04/19 20:00 80 03/04/19 20:00 Mechanical Ventilator Mechanical Ventilator 03/04/19 20:00 21 Mechanical Ventilator 40 03/04/19 20:00 40 03/04/19 20:00 77 23 129/52 (77) 99 03/04/19 19:30 99.2 73 21 120/87 (98) 100 03/04/19 19:22 75 24 40 03/04/19 19:20 76 24 100 Mechanical Ventilator 40 03/04/19 19:10 69 24 99 Mechanical Ventilator 40 03/04/19 19:00 24 Mechanical Ventilator 03/04/19 19:00 69 22 118/63 (81) 99 03/04/19 18:30 71 24 133/59 (83) 99 03/04/19 18:00 23 Mechanical Ventilator 40 03/04/19 18:00 73 24 136/72 (93) 100 03/04/19 17:30 83 20 154/70 (98) 100 03/04/19 17:21 72 24 40 03/04/19 17:00 71 18 154/70 (98) 100 03/04/19 17:00 15 Mechanical Ventilator 03/04/19 16:30 74 24 144/47 (79) 100 03/04/19 16:00 98.7 69 24 150/52 (84) 99 03/04/19 16:00 Mechanical Ventilator Mechanical Ventilator 03/04/19 16:00 40 03/04/19 16:00 71 03/04/19 16:00 24 Mechanical Ventilator 40 03/04/19 15:30 71 21 128/44 (72) 97 03/04/19 15:08 67 24 40 03/04/19 15:00 69 24 150/58 (88) 98 03/04/19 15:00 24 Mechanical Ventilator 40 03/04/19 14:30 71 17 133/50 (77) 98 03/04/19 14:28 133/50 03/04/19 14:27 133/50 03/04/19 14:00 84 17 133/50 (77) 98 03/04/19 14:00 21 Mechanical Ventilator 03/04/19 13:30 72 25 135/65 (88) 98 03/04/19 13:12 74 24 100 Mechanical Ventilator 40 03/04/19 13:12 64 24 40 03/04/19 13:04 100.2 03/04/19 13:00 68 24 155/85 (108) 97 03/04/19 13:00 24 Mechanical Ventilator 40 03/04/19 13:00 67 24 98 Mechanical Ventilator 40 03/04/19 12:30 79 23 153/78 (103) 98 03/04/19 12:00 Mechanical Ventilator Mechanical Ventilator 03/04/19 12:00 100.5 74 24 157/66 (96) 98 03/04/19 12:00 40 03/04/19 12:00 24 Mechanical Ventilator 30 03/04/19 12:00 79 03/04/19 12:00 40 03/04/19 11:30 73 20 147/47 (80) 99 03/04/19 11:28 99.0 03/04/19 11:00 69 24 146/50 (82) 99 03/04/19 10:58 24 Mechanical Ventilator 03/04/19 10:45 73 24 40 03/04/19 10:30 73 24 142/43 (76) 98 03/04/19 10:00 24 Mechanical Ventilator 03/04/19 10:00 75 24 150/56 (87) 99 03/04/19 09:30 94 23 150/56 (87) 98 03/04/19 09:16 93 172/57 03/04/19 09:15 94 172/57 03/04/19 09:00 90 20 160/71 (100) 99 03/04/19 09:00 24 Mechanical Ventilator 03/04/19 08:58 90 23 40 03/04/19 08:30 99.5 91 22 156/60 (92) 99 03/04/19 08:30 86 22 154/60 (91) 99 03/04/19 08:00 Mechanical Ventilator Mechanical Ventilator 03/04/19 08:00 88 03/04/19 08:00 40 03/04/19 08:00 18 Mechanical Ventilator 40 03/04/19 08:00 91 22 156/62 (93) 99 03/04/19 07:30 89 22 149/59 (89) 99 03/04/19 07:02 78 24 99 Mechanical Ventilator 40 03/04/19 07:00 82 23 149/59 (89) 99 03/04/19 07:00 23 Mechanical Ventilator 40 03/04/19 06:52 90 24 40 03/04/19 06:47 80 24 99 Mechanical Ventilator 40 Intake and Output 03/04/19 03/05/19 19:00 07:00 Intake Total 755 ml 320 ml Output Total 2490 ml 1545 ml Balance -1735 ml -1225 ml Free Water 50 ml IV Total 705 ml 320 ml Tube Feeding 0 ml 0 ml Output Urine Total 2440 ml 1445 ml Stool Total 50 ml 100 ml Laboratory Tests 03/05/19 04:45: White Blood Count 3.4L, Red Blood Count 2.84L, Hemoglobin 8.2L, Hematocrit 25.0L , Mean Corpuscular Volume 88, Mean Corpuscular Hemoglobin 28.9, Mean Corpuscular Hemoglobin Concent 32.9, Red Cell Distribution Width 16.8H, Platelet Count 96L, Mean Platelet Volume 6.4L, Neutrophils (%) (Auto) , Lymphocytes (%) (Auto) , Monocytes (%) (Auto) , Eosinophils (%) (Auto) , Basophils (%) (Auto) , Neutrophils % (Manual) [Pending], Lymphocytes % (Manual) [Pending], Platelet Estimate [Pending], Platelet Morphology [Pending], Sodium Level 140, Potassium Level 3.4L, Chloride Level 103, Carbon Dioxide Level 29, Anion Gap 8, Blood Urea Nitrogen 32H, Creatinine 1.6H, Estimat Glomerular Filtration Rate 44.5, Glucose Level 69#L, Uric Acid 4.6, Calcium Level 9.0, Phosphorus Level 2.2L, Magnesium Level 1.3L, Total Bilirubin 0.6, Aspartate Amino Transf (AST/SGOT) 58H, Alanine Aminotransferase (ALT/SGPT) 76, Alkaline Phosphatase 108, C-Reactive Protein, Quantitative 9.1H, Pro-B-Type Natriuretic Peptide 93249B, Total Protein 5.2L, Albumin 2.1L, Globulin 3.1, Albumin/ Globulin Ratio 0.7L, Random Vancomycin Level [Pending] Height (Feet): 6 Height (Inches): 0.00 Weight (Pounds): 266 General Appearance: lethargic EENT: other - tracheostomy Neck: normal alignment Cardiovascular: normal rate Respiratory/Chest: decreased breath sounds Abdomen: normal bowel sounds Pelvis: normal external exam Edema: 2+ Arm (L), 2+ Arm (R), 2+ Leg (L), 2+ Leg (R), 2+ Pedal (L), 2+ Pedal ( R), 2+ Generalized Objective Current Medications Medications (Trade) Dose Ordered Sig/Marquis Route PRN Reason Start Time Stop Time Status Last Admin Dose Admin Acetaminophen (Tylenol) 650 mg Q4H PRN ORAL Mild Pain (Pain Scale 1-3) 02/07/19 11:15 03/08/19 17:29 03/04/19 12:34 Acetaminophen/ Butalbital/ Caffeine (Fioricet) 1 tab Q8H PRN ORAL For Headache 02/08/19 17:15 03/10/19 17:14 Albuterol/ Ipratropium (Albuterol/ Ipratropium) 3 ml Q6HRT HHN 03/03/19 19:00 03/08/19 18:59 03/05/19 01:11 Amlodipine Besylate (Norvasc) 10 mg DAILY NG 02/15/19 09:00 03/14/19 15:59 03/04/19 09:16 Artificial Tears (Lacri-Lube) 1 applic AC+HS BOTH EYES 02/18/19 06:30 03/20/19 06:29 03/05/19 05:35 Bisacodyl (Dulcolax) 5 mg DAILYPRN PRN ORAL Constipation 02/08/19 17:15 03/10/19 17:14 02/25/19 12:45 Chlorhexidine Gluconate (Jessy-Hex 2%) 1 applic DAILY@2000 TOPIC 02/25/19 20:00 03/27/19 19:59 03/04/19 20:56 Clonidine HCl (Catapres tab) 0.2 mg EVERY 8 HOURS NG 03/02/19 22:00 03/19/19 13:59 03/04/19 21:54 Dextrose (Dextrose 50%) 25 ml Q30M PRN IV Hypoglycemia 03/01/19 07:15 03/31/19 07:14 Dextrose (Dextrose 50%) 50 ml Q30M PRN IV Hypoglycemia 03/01/19 07:15 03/31/19 07:14 03/05/19 05:32 Docusate Sodium (Colace) 100 mg TID GT 02/12/19 18:00 03/12/19 08:59 03/04/19 17:31 Fentanyl Citrate 2500 mcg/Sodium Chloride 250 ml @ 0 mls/hr Q24H IV 03/03/19 00:00 03/10/19 00:00 03/04/19 22:48 Fluconazole/ Sodium Chloride 100 ml @ 100 mls/hr Q24H IV 03/03/19 18:00 03/10/19 17:59 03/04/19 17:31 Furosemide (Lasix) 40 mg DAILY IV 03/01/19 09:00 03/31/19 08:59 03/04/19 09:16 Guaifenesin (Mucinex ER) 600 mg TWICE A DAY ORAL 02/07/19 18:00 03/09/19 08:59 03/04/19 17:31 Heparin Sodium (Porcine) (Heparin 5000 units/ml) 5,000 units EVERY 12 HOURS SUBQ 02/26/19 21:00 03/28/19 20:59 03/04/19 09:17 Hydralazine HCl (Apresoline) 10 mg Q4H PRN IV bp over 165 syst 02/17/19 10:15 03/19/19 10:14 02/19/19 14:45 Hydralazine HCl (Apresoline) 50 mg Q8HR NG 02/22/19 14:00 03/21/19 21:59 03/04/19 21:54 Insulin Aspart (NovoLOG) EVERY 6 HOURS SUBQ 02/26/19 12:00 03/28/19 11:59 03/04/19 05:49 Insulin Detemir (Levemir) 16 units Q12HR SUBQ 03/04/19 09:00 04/01/19 20:59 03/04/19 21:00 Lorazepam (Ativan 2mg/ml 1ml) 2 mg Q2H PRN IV For Anxiety 02/27/19 13:48 03/06/19 13:47 03/04/19 04:22 Meropenem 1 gm/ Sodium Chloride 55 ml @ 110 mls/hr Q12HR IVPB 03/03/19 21:00 03/08/19 20:59 03/04/19 20:57 Metoclopramide HCl (Reglan) 5 mg Q8H IVP 02/26/19 09:00 03/28/19 08:59 03/05/19 00:58 Metolazone (Zaroxolyn) 10 mg DAILY NG 02/19/19 10:00 03/21/19 09:59 03/04/19 09:14 Metoprolol Tartrate (Lopressor) 100 mg Q12HR ORAL 02/22/19 21:00 03/08/19 20:59 03/04/19 20:57 Midazolam HCl (Versed 2mg/2ml vial) 1 mg Q2H PRN IVP Agitation 02/13/19 08:45 03/15/19 08:44 02/27/19 11:05 Neomycin/ Polymyxin/ Dexamethasone (Maxitrol Opth Oint) 1 applic BEDTIME BOTH EYES 02/18/19 21:00 03/20/19 20:59 03/04/19 20:57 Nitroglycerin (Ntg) 0.4 mg Q5M PRN SL Prn Chest Pain 02/07/19 11:00 03/08/19 17:29 02/08/19 07:42 Ondansetron HCl (Zofran) 4 mg Q6H PRN IVP Nausea & Vomiting 02/07/19 11:15 03/08/19 11:14 02/09/19 00:58 Pantoprazole (Protonix) 40 mg DAILY IVP 02/26/19 09:00 03/24/19 20:59 03/04/19 09:15 Patient Own Medication (Patient's Own Med) 1 ea BID ORAL 02/07/19 18:00 03/09/19 17:59 03/04/19 17:31 Patient Own Medication (Patient's Own Med) 1 ea Q48H ORAL 02/18/19 09:00 03/20/19 08:59 03/04/19 09:13 Patient Own Medication (Patient's Own Med) 2 ea DAILY ORAL 02/08/19 09:00 03/10/19 08:59 03/04/19 09:13 Polyethylene Glycol (Miralax) 17 gm BEDTIME ORAL 02/08/19 21:00 03/10/19 20:59 03/03/19 21:01 Sennosides (Senokot) 8.6 mg DAILY ORAL 02/13/19 12:00 03/15/19 11:59 03/04/19 09:21 Trimethoprim/ Sulfamethoxazole (Bactrim-DS) 1 tab DAILY ORAL 03/04/19 09:00 03/11/19 08:59 03/04/19 09:00 Vancomycin HCl (Vanco rx to dose) 1 ea DAILY PRN MISC Per rx protocol 03/03/19 11:00 04/02/19 10:59 Carlito Nichols MD Mar 05, 2019 06:35
--- NOTE | 2019-03-05 07:00 | NUR ---
RESPIRATORY NOTE: Received pt on AC 24-550ml-40%-peep of 5. Pt is sedated, trach dependent with trach Shiley cuffed size 8.0, secured by trach guard and trach tie. Carlton rhonchi B/S heard upon auscultation, suctioned small amount of thick phipps yellow secretions without incidents. Breathing Tx given without an adverse reactions. Alarms are set ad audible, vent is plugged into the red outlet, ambu bag and spare kit are at bedside. Vent circuits and sxn tubing are patent and out of way. Pt is resting in bad, no SOB or resp distress noted at this time. Will continue to monitor pt. Addendum: 03/05/19 at 0850 by Dangelo Stone RT typo correction: pt is resting in bed not"bad"
--- NOTE | 2019-03-05 07:07 | NUR ---
HAND-OFF: Report given to Simin ZARATE.
--- NOTE | 2019-03-05 07:15 | NUR ---
NURSE NOTES: Received change of shift report from Ray ZARATE. Pt is awake, follows with eyes, restless while currently on Fentanyl drip at 200mcg/hr. Pt has bilateral soft wrist restraints in place to prevent self-extubation, as he is noted to move extremities and attempt to reach/pull ET tube. Pt withdraws to pain. SP Trach, Shiley 8.0 with vent settings AC24, FIO2 40%, Peep 5.0, VT550, with O2sat at 96%. 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 Central line IV access present on right upper arm PICC, currently TKO and Fentanyl drip. Pt has left NGT in place, patent/intact, feeding is currently on hold per order in anticipation of scheduled PEG placement today. Abdomen is large, round, moderately hard/nontender to touch with hypoactive bowel sounds present on all quadrants. Rectal tube is in place draining soft/liquid brown stool. Simon catheter is in place draining clear/yellow urine with sediments. Pt has scrotal edema. Bilateral SCDs are present on lower extremities for DVT prophylaxis. Pt is on P200 mattress, with head of bed at 30degress, three side rails up, bed locked/in lowest position and call light within reach. Will continue to monitor pt and follow plan of care per MD orders and protocol.
--- NOTE | 2019-03-05 08:00 | NUR ---
NURSE NOTES: Oral care was done, pt was cleaned, gown/linens changed. Fentanyl drip has been titrated up to 300mcg/hr to maintain RASS score of -2 light sedation. VS stable.
[2019-03-05] MEDS: LORazepam Inj 2mg/ml 1ml IV PRN ×4 (08:02→22:58)
[2019-03-05] MEDS: RALTEGRAVIR 400 MG ORAL SCH ×2 (08:05→17:49)
[2019-03-05] MEDS: Docusate 100mg/10ml Liq GT SCH ×3 (08:05→17:49)
[2019-03-05] MEDS: ETRAVIRINE 200 MG ORAL SCH (08:05)
[2019-03-05] MEDS: Pantoprazole Inj IVP SCH (08:06)
[2019-03-05] MEDS: guaiFENesin ER 600mg tab ORAL SCH (08:07)
[2019-03-05] MEDS: Bactrim-DS 1 tab ORAL SCH (08:07)
[2019-03-05] MEDS: Sennosides 8.6mg tab ORAL SCH (08:07)
[2019-03-05] MEDS: Heparin 5000 units/ml inj SUBQ SCH ×2 (08:08→21:06)
[2019-03-05] MEDS: Meropenem 1gm in NS 55ml IVPB SCH ×2 (08:28→20:58)
[2019-03-05] MEDS: Levemir Flexpen SUBQ SCH ×2 (08:31→21:07)
[2019-03-05] MEDS: fentaNYL Citrate 2,500 MCG in NS 200 ML IV SCH ×2 (09:00→21:11)
[2019-03-05] MEDS: Vancomycin 1gm/D5W 275ml IVPB SCH ×2 (09:24)
--- NOTE | 2019-03-05 09:39 | Hematology/Onc Progress Note ---
Assessment/Plan Assessment/Plan ASSESSMENT AND RECS: # Pancytopenia with all three cell lines have, decreasing counts could also be due to underlying hiv meds, sepsis as well as HIV --> Anemia workup has been reviewed. Ferritin 182 --> Hep panel pending and HIV confirmed positive --> No evidence of hemolysis is noted, peripheral smear has been reviewed. --> Hgb goal >7. Transfuse prn. --> Epogen or iron at this time is not particularly indicated --> Medications have been reviewed --> Stool OB negative --> Blood tx: 1 unit on 02/10/19, --> off ASA, off heparin, off lovenox --> Hgb trend: 7.6-->8.2-->9.4-->8.4-->8.2 -->8.9-->10.3->7.9-->8.1->7.8-->8.7-- >8.4-->8.1-->7.9-->8.2 --> WBC 5-->4-->3.2-->3.1-->3.4 --> Plt trend: 153-->257-->224-->205-->253-->310-->201->177-->115-->104-->100--> 106-->96k --> Transfuse if Plt < 20k and fever, or if Plt < 10k without fever --> WILLIAM screen negative # Multilobar pneumonia in patient with HIV. Recs per ID. --> Broad sp atbx started. Continue on abx as per id --> Droplet precaution # Hypoxemic respiratory failure. s/p trach --> Bipap as needed, transition to O2 via NC when able --> Due to pneumonia, on abx --> pulm recs reviewed # Chest pain. 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 --> Trend troponin x3 --> NGT prn # HIV. --> Continue HARRT --> VL is undetectable per patient report. # HTN --> Resume home medication # DVT and GI ppx The time the note is entered does not reflect the time the patient was examined. I greatly appreciate the consultation. Subjective Constitutional: Denies: no symptoms, chills, fever, malaise, weakness, other HEENT: Denies: no symptoms, eye pain, blurred vision, tearing, double vision, ear pain, ear discharge, nose pain, nose congestion, throat pain, throat swelling, mouth pain, mouth swelling, other Cardiovascular: Denies: no symptoms, chest pain, edema, irregular heart rate, lightheadedness, palpitations, syncope, other Respiratory: Denies: no symptoms, cough, shortness of breath, SOB with excertion, SOB at rest, sputum, wheezing, other Gastrointestinal/Abdominal: Denies: no symptoms, abdomen distended, abdominal pain, black stools, tarry stools, blood in stool, constipated, diarrhea, difficulty swallowing, nausea, poor appetite, poor fluid intake, rectal bleeding , vomiting, other Genitourinary: Denies: no symptoms, burning, discharge, frequency, flank pain, hematuria, incontinence, pain, urgency, other Neurologic/Psychiatric: Denies: no symptoms, anxiety, depressed, emotional problems, headache, numbness, paresthesia, pre-existing deficit, seizure, tingling, tremors, weakness, other Endocrine: Denies: no symptoms, excessive sweating, flushing, intolerance to cold, intolerance to heat, increased hunger, increased thirst, increased urine, unexplained weight gain, unexplained weight loss, other Allergies: Coded Allergies: No Known Allergies (Unverified , 02/05/13) Subjective Subjective 02/11: Hgb yesterday was 7.6, s/p 1 unit prbc. Current hgb at 8.2. Pt attempted to pull out tubes per nursing team, soft restraints applied. 02/13: Pt in ICU and intubated. Pt currently sedated. Current hgb 9.4. 02/14: Pt remains in icu, sedated. Hgb stable. 02/15: Remains in icu, lethargic. No acute events. Hgb stable. 02/16: Remains in icu. CXR today shows worsening CHF/pulmonary edema. Pt wake and sedation decrease for weaning. 02/18: Remains in icu. Pt on vent. CXR today shows pulmonary edema, persistent small left pleural effusion. 7/1: Remains in the icu, now extubated, seen by pulm, labs reviewed 02/20: Remains in ICU, Pt intubated, CXR today shows Congestive heart failure with interval worsening 02/21: reintubated, tolerating vent well, seen by pulm/cc 02/23: pt remains on fently gtt, prn ativan, currenlty intubated on vent, no further bleeding, d/w RN> 02/24:failed weaning, fentanyl drip decreased. 02/25:pt seen in am,sedated. 02/27: remains intubated, may need trach, nobleeding today 02/28: tolerated cpap, now back on vent, no bleeding off asa/lovenox 03/01: fentanyl gtt is now off, remains in icu, dw rn 03/02: to get trach today, at approx 12, no events, labs somewhat lower 03/03: still confused on exam, d/w rn, no events, on fentanyl gtt 03/05: to get peg tomorrow, no f/c Objective Objective Current Medications Medications (Trade) Dose Ordered Sig/Marquis Route PRN Reason Start Time Stop Time Status Last Admin Dose Admin Acetaminophen (Tylenol) 650 mg Q4H PRN ORAL Mild Pain (Pain Scale 1-3) 02/07/19 11:15 03/08/19 17:29 03/04/19 12:34 Acetaminophen/ Butalbital/ Caffeine (Fioricet) 1 tab Q8H PRN ORAL For Headache 02/08/19 17:15 03/10/19 17:14 Albuterol/ Ipratropium (Albuterol/ Ipratropium) 3 ml Q6HRT HHN 03/03/19 19:00 03/08/19 18:59 03/05/19 06:50 Amlodipine Besylate (Norvasc) 10 mg DAILY NG 02/15/19 09:00 03/14/19 15:59 03/05/19 08:07 Artificial Tears (Lacri-Lube) 1 applic AC+HS BOTH EYES 02/18/19 06:30 03/20/19 06:29 03/05/19 05:35 Bisacodyl (Dulcolax) 5 mg DAILYPRN PRN ORAL Constipation 02/08/19 17:15 03/10/19 17:14 02/25/19 12:45 Chlorhexidine Gluconate (Jessy-Hex 2%) 1 applic DAILY@2000 TOPIC 02/25/19 20:00 03/27/19 19:59 03/04/19 20:56 Clonidine HCl (Catapres tab) 0.2 mg EVERY 8 HOURS NG 03/02/19 22:00 03/19/19 13:59 03/04/19 21:54 Dextrose (Dextrose 50%) 25 ml Q30M PRN IV Hypoglycemia 03/01/19 07:15 03/31/19 07:14 Dextrose (Dextrose 50%) 50 ml Q30M PRN IV Hypoglycemia 03/01/19 07:15 03/31/19 07:14 03/05/19 05:32 Docusate Sodium (Colace) 100 mg TID GT 02/12/19 18:00 03/12/19 08:59 03/05/19 08:05 Fentanyl Citrate 2500 mcg/Sodium Chloride 250 ml @ 0 mls/hr Q24H IV 03/03/19 00:00 03/10/19 00:00 03/04/19 22:48 Fluconazole/ Sodium Chloride 100 ml @ 100 mls/hr Q24H IV 03/03/19 18:00 03/10/19 17:59 03/04/19 17:31 Furosemide (Lasix) 40 mg DAILY IV 03/01/19 09:00 03/31/19 08:59 03/05/19 08:06 Guaifenesin (Mucinex ER) 600 mg TWICE A DAY ORAL 02/07/19 18:00 03/09/19 08:59 03/05/19 08:07 Heparin Sodium (Porcine) (Heparin 5000 units/ml) 5,000 units EVERY 12 HOURS SUBQ 02/26/19 21:00 03/28/19 20:59 03/04/19 09:17 Hydralazine HCl (Apresoline) 10 mg Q4H PRN IV bp over 165 syst 02/17/19 10:15 03/19/19 10:14 02/19/19 14:45 Hydralazine HCl (Apresoline) 50 mg Q8HR NG 02/22/19 14:00 03/21/19 21:59 03/04/19 21:54 Insulin Aspart (NovoLOG) EVERY 6 HOURS SUBQ 02/26/19 12:00 03/28/19 11:59 03/04/19 05:49 Insulin Detemir (Levemir) 10 units Q12HR SUBQ 03/05/19 09:00 04/01/19 20:59 Lorazepam (Ativan 2mg/ml 1ml) 2 mg Q2H PRN IV For Anxiety 02/27/19 13:48 03/06/19 13:47 03/05/19 08:02 Magnesium Sulfate 100 ml @ 100 mls/hr Q1H IVPB 03/05/19 10:00 03/05/19 13:59 Meropenem 1 gm/ Sodium Chloride 55 ml @ 110 mls/hr Q12HR IVPB 03/03/19 21:00 03/08/19 20:59 03/05/19 08:28 Metoclopramide HCl (Reglan) 5 mg Q8H IVP 02/26/19 09:00 03/28/19 08:59 03/05/19 08:06 Metolazone (Zaroxolyn) 10 mg DAILY NG 02/19/19 10:00 03/21/19 09:59 03/05/19 08:06 Metoprolol Tartrate (Lopressor) 100 mg Q12HR ORAL 02/22/19 21:00 03/08/19 20:59 03/05/19 08:07 Midazolam HCl (Versed 2mg/2ml vial) 1 mg Q2H PRN IVP Agitation 02/13/19 08:45 03/15/19 08:44 02/27/19 11:05 Neomycin/ Polymyxin/ Dexamethasone (Maxitrol Opth Oint) 1 applic BEDTIME BOTH EYES 02/18/19 21:00 03/20/19 20:59 03/04/19 20:57 Nitroglycerin (Ntg) 0.4 mg Q5M PRN SL Prn Chest Pain 02/07/19 11:00 03/08/19 17:29 02/08/19 07:42 Ondansetron HCl (Zofran) 4 mg Q6H PRN IVP Nausea & Vomiting 02/07/19 11:15 03/08/19 11:14 02/09/19 00:58 Pantoprazole (Protonix) 40 mg DAILY IVP 02/26/19 09:00 03/24/19 20:59 03/05/19 08:06 Patient Own Medication (Patient's Own Med) 1 ea BID ORAL 02/07/19 18:00 03/09/19 17:59 03/05/19 08:05 Patient Own Medication (Patient's Own Med) 1 ea Q48H ORAL 02/18/19 09:00 03/20/19 08:59 03/04/19 09:13 Patient Own Medication (Patient's Own Med) 2 ea DAILY ORAL 02/08/19 09:00 03/10/19 08:59 03/05/19 08:05 Polyethylene Glycol (Miralax) 17 gm BEDTIME ORAL 02/08/19 21:00 03/10/19 20:59 03/03/19 21:01 Potassium Phosphate 30 mm/ Sodium Chloride 285 ml @ 47.5 mls/hr ONCE ONCE IV 03/05/19 10:30 03/05/19 16:29 Sennosides (Senokot) 8.6 mg DAILY ORAL 02/13/19 12:00 03/15/19 11:59 03/05/19 08:07 Trimethoprim/ Sulfamethoxazole (Bactrim-DS) 1 tab DAILY ORAL 03/04/19 09:00 03/11/19 08:59 03/05/19 08:07 Vancomycin HCl (Vanco rx to dose) 1 ea DAILY PRN MISC Per rx protocol 03/03/19 11:00 04/02/19 10:59 Vancomycin HCl 1 gm/Dextrose 275 ml @ 183.708 mls/hr Q24H IVPB 03/05/19 09:00 03/10/19 08:59 03/05/19 09:24 Last 24 Hour Vital Signs Date Time Temp Pulse Resp B/P (MAP) Pulse Ox O2 Delivery O2 Flow Rate FiO2 03/05/19 08:07 86 153/59 03/05/19 08:07 86 153/59 03/05/19 07:00 22 Mechanical Ventilator 40 03/05/19 07:00 86 25 100 Mechanical Ventilator 40 03/05/19 07:00 90 21 153/59 (90) 100 03/05/19 06:50 85 26 100 Mechanical Ventilator 40 03/05/19 06:49 86 25 40 03/05/19 06:30 88 20 157/64 (95) 100 03/05/19 06:00 24 Mechanical Ventilator 40 03/05/19 06:00 86 23 156/61 (92) 100 03/05/19 05:34 160/128 03/05/19 05:33 160/128 03/05/19 05:30 88 23 162/64 (96) 100 03/05/19 05:24 86 25 40 03/05/19 05:00 83 23 160/128 (139) 100 03/05/19 05:00 24 Mechanical Ventilator 40 03/05/19 04:30 84 22 160/58 (92) 100 03/05/19 04:00 83 03/05/19 04:00 99.0 94 25 109/57 (74) 99 03/05/19 04:00 Mechanical Ventilator Mechanical Ventilator 03/05/19 04:00 24 Mechanical Ventilator 40 03/05/19 04:00 40 03/05/19 03:30 82 22 150/52 (84) 98 03/05/19 03:07 76 22 40 03/05/19 03:00 21 Mechanical Ventilator 40 03/05/19 03:00 95 24 154/61 (92) 98 03/05/19 02:30 78 20 147/53 (84) 100 03/05/19 02:00 22 Mechanical Ventilator 40 03/05/19 02:00 79 14 148/54 (85) 99 03/05/19 01:30 84 21 145/59 (87) 99 03/05/19 01:13 77 25 99 Mechanical Ventilator 40 03/05/19 01:11 78 24 40 03/05/19 01:00 77 20 148/98 (115) 99 03/05/19 01:00 22 Mechanical Ventilator 40 03/05/19 01:00 74 25 97 Mechanical Ventilator 40 03/05/19 00:30 81 17 143/56 (85) 100 03/05/19 00:00 98.7 76 23 147/53 (84) 100 03/05/19 00:00 84 03/05/19 00:00 40 03/05/19 00:00 Mechanical Ventilator Mechanical Ventilator 03/05/19 00:00 22 Mechanical Ventilator 40 03/04/19 23:30 75 24 40 03/04/19 23:30 73 24 140/52 (81) 100 03/04/19 23:01 71 21 142/58 (86) 96 03/04/19 23:00 24 Mechanical Ventilator 40 03/04/19 22:48 24 Mechanical Ventilator 40 03/04/19 22:30 71 18 142/56 (84) 99 03/04/19 22:00 18 Mechanical Ventilator 40 03/04/19 22:00 75 14 139/49 (79) 98 03/04/19 21:54 141/53 03/04/19 21:54 141/53 03/04/19 21:30 82 33 40 03/04/19 21:30 84 23 141/53 (82) 98 03/04/19 21:00 23 Mechanical Ventilator 40 03/04/19 21:00 89 23 155/57 (89) 100 03/04/19 20:57 80 138/55 03/04/19 20:30 80 24 138/55 (82) 99 03/04/19 20:00 80 03/04/19 20:00 Mechanical Ventilator Mechanical Ventilator 03/04/19 20:00 21 Mechanical Ventilator 40 03/04/19 20:00 40 03/04/19 20:00 77 23 129/52 (77) 99 03/04/19 19:30 99.2 73 21 120/87 (98) 100 03/04/19 19:22 75 24 40 03/04/19 19:20 76 24 100 Mechanical Ventilator 40 03/04/19 19:10 69 24 99 Mechanical Ventilator 40 03/04/19 19:00 24 Mechanical Ventilator 03/04/19 19:00 69 22 118/63 (81) 99 03/04/19 18:30 71 24 133/59 (83) 99 03/04/19 18:00 23 Mechanical Ventilator 40 03/04/19 18:00 73 24 136/72 (93) 100 03/04/19 17:30 83 20 154/70 (98) 100 03/04/19 17:21 72 24 40 03/04/19 17:00 71 18 154/70 (98) 100 03/04/19 17:00 15 Mechanical Ventilator 03/04/19 16:30 74 24 144/47 (79) 100 03/04/19 16:00 98.7 69 24 150/52 (84) 99 03/04/19 16:00 Mechanical Ventilator Mechanical Ventilator 03/04/19 16:00 40 03/04/19 16:00 71 03/04/19 16:00 24 Mechanical Ventilator 40 03/04/19 15:30 71 21 128/44 (72) 97 03/04/19 15:08 67 24 40 03/04/19 15:00 69 24 150/58 (88) 98 03/04/19 15:00 24 Mechanical Ventilator 40 03/04/19 14:30 71 17 133/50 (77) 98 03/04/19 14:28 133/50 03/04/19 14:27 133/50 03/04/19 14:00 84 17 133/50 (77) 98 03/04/19 14:00 21 Mechanical Ventilator 03/04/19 13:30 72 25 135/65 (88) 98 03/04/19 13:12 74 24 100 Mechanical Ventilator 40 03/04/19 13:12 64 24 40 03/04/19 13:04 100.2 03/04/19 13:00 68 24 155/85 (108) 97 03/04/19 13:00 24 Mechanical Ventilator 40 03/04/19 13:00 67 24 98 Mechanical Ventilator 40 03/04/19 12:30 79 23 153/78 (103) 98 03/04/19 12:00 Mechanical Ventilator Mechanical Ventilator 03/04/19 12:00 100.5 74 24 157/66 (96) 98 03/04/19 12:00 40 03/04/19 12:00 24 Mechanical Ventilator 30 03/04/19 12:00 79 03/04/19 12:00 40 03/04/19 11:30 73 20 147/47 (80) 99 03/04/19 11:28 99.0 03/04/19 11:00 69 24 146/50 (82) 99 03/04/19 10:58 24 Mechanical Ventilator 03/04/19 10:45 73 24 40 03/04/19 10:30 73 24 142/43 (76) 98 03/04/19 10:00 24 Mechanical Ventilator 03/04/19 10:00 75 24 150/56 (87) 99 03/04/19 09:30 94 23 150/56 (87) 98 03/04/19 09:16 93 172/57 03/04/19 09:15 94 172/57 03/04/19 09:00 90 20 160/71 (100) 99 03/04/19 09:00 24 Mechanical Ventilator 03/04/19 08:58 90 23 40 03/04/19 08:30 99.5 91 22 156/60 (92) 99 7/14/19 08:30 86 22 154/60 (91) 99 03/04/19 08:00 Mechanical Ventilator Mechanical Ventilator 03/04/19 08:00 88 03/04/19 08:00 40 03/04/19 08:00 18 Mechanical Ventilator 40 03/04/19 08:00 91 22 156/62 (93) 99 03/04/19 07:30 89 22 149/59 (89) 99 03/04/19 07:02 78 24 99 Mechanical Ventilator 40 03/04/19 07:00 82 23 149/59 (89) 99 03/04/19 07:00 23 Mechanical Ventilator 40 03/04/19 06:52 90 24 40 03/04/19 06:47 80 24 99 Mechanical Ventilator 40 03/04/19 06:30 80 10 148/53 (84) 98 03/04/19 06:00 21 Mechanical Ventilator 40 03/04/19 06:00 90 22 138/120 (126) 99 03/04/19 05:48 148/56 03/04/19 05:48 148/56 03/04/19 05:30 84 24 148/56 (86) 98 03/04/19 05:07 87 24 40 03/04/19 05:00 88 2 153/62 (92) 98 03/04/19 05:00 23 Mechanical Ventilator 40 03/04/19 04:30 99 20 158/73 (101) 99 03/04/19 04:00 Mechanical Ventilator Mechanical Ventilator 03/04/19 04:00 23 Mechanical Ventilator 40 03/04/19 04:00 99.1 90 24 146/90 (108) 99 03/04/19 04:00 87 03/04/19 03:30 84 22 151/55 (87) 98 03/04/19 03:06 86 22 40 03/04/19 03:00 79 24 106/70 (82) 98 03/04/19 03:00 22 Mechanical Ventilator 40 03/04/19 02:30 85 23 150/54 (86) 99 03/04/19 02:00 79 24 146/49 (81) 98 03/04/19 02:00 22 Mechanical Ventilator 40 03/04/19 01:42 80 24 98 Mechanical Ventilator 40 03/04/19 01:30 79 24 148/56 (86) 100 03/04/19 01:27 81 22 98 Mechanical Ventilator 40 03/04/19 01:27 80 22 40 03/04/19 01:00 21 Mechanical Ventilator 40 03/04/19 01:00 75 24 142/49 (80) 98 03/04/19 00:37 21 Mechanical Ventilator 40 03/04/19 00:30 75 22 147/48 (81) 97 03/04/19 00:04 40 03/04/19 00:00 75 03/04/19 00:00 23 Mechanical Ventilator 40 03/04/19 00:00 100.2 75 23 147/48 (81) 98 03/04/19 00:00 Mechanical Ventilator Mechanical Ventilator 03/03/19 23:30 77 24 145/51 (82) 98 03/03/19 23:29 78 24 40 03/03/19 23:00 22 Mechanical Ventilator 40 03/03/19 23:00 79 25 142/59 (86) 99 03/03/19 22:30 76 24 142/47 (78) 99 03/03/19 22:13 144/54 03/03/19 22:12 144/54 03/03/19 22:00 78 24 144/54 (84) 98 03/03/19 22:00 24 Mechanical Ventilator 40 03/03/19 21:30 92 22 153/76 (101) 98 03/03/19 21:25 82 23 40 03/03/19 21:01 86 138/52 03/03/19 21:00 87 22 145/50 (81) 98 03/03/19 21:00 23 Mechanical Ventilator 40 03/03/19 20:30 82 24 138/52 (80) 98 03/03/19 20:05 84 03/03/19 20:05 40 03/03/19 20:02 Mechanical Ventilator Mechanical Ventilator 03/03/19 20:00 80 23 136/48 (77) 100 03/03/19 20:00 24 Mechanical Ventilator 40 03/03/19 19:53 86 24 100 Mechanical Ventilator 40 03/03/19 19:44 80 24 40 03/03/19 19:43 80 24 100 Mechanical Ventilator 40 03/03/19 19:30 100.1 78 23 146/52 (83) 99 03/03/19 19:00 23 Mechanical Ventilator 40 03/03/19 19:00 84 23 142/68 (92) 98 03/03/19 18:30 83 25 142/68 (92) 100 03/03/19 18:00 24 Mechanical Ventilator 40 03/03/19 18:00 79 23 142/66 (91) 100 03/03/19 17:30 77 25 140/56 (84) 95 03/03/19 17:20 77 26 40 03/03/19 17:00 78 27 140/56 (84) 99 03/03/19 17:00 24 Mechanical Ventilator 40 03/03/19 16:30 73 23 123/50 (74) 99 03/03/19 16:00 98.8 68 24 123/50 (74) 99 03/03/19 16:00 24 Mechanical Ventilator 40 03/03/19 16:00 Mechanical Ventilator Mechanical Ventilator 03/03/19 16:00 40 03/03/19 16:00 77 03/03/19 15:30 76 22 123/50 (74) 99 03/03/19 15:00 23 Mechanical Ventilator 40 03/03/19 15:00 84 23 140/80 (100) 99 03/03/19 14:45 81 24 40 03/03/19 14:30 96 21 140/80 (100) 98 03/03/19 14:16 17 40 03/03/19 14:15 23 Mechanical Ventilator 40 03/03/19 14:00 23 Mechanical Ventilator 40 03/03/19 14:00 103 23 110/97 (101) 100 03/03/19 13:45 86 20 110/97 (101) 100 03/03/19 13:42 85 28 100 Mechanical Ventilator 40 03/03/19 13:42 85 28 100 Mechanical Ventilator 40 03/03/19 13:30 85 18 110/97 (101) 100 03/03/19 13:15 85 20 110/97 (101) 100 03/03/19 13:01 152/125 03/03/19 13:01 152/125 03/03/19 13:00 85 28 40 03/03/19 13:00 18 Mechanical Ventilator 40 03/03/19 13:00 88 18 149/82 (104) 100 03/03/19 12:45 84 19 152/125 (134) 100 03/03/19 12:30 86 22 152/125 (134) 100 03/03/19 12:15 81 21 152/125 (134) 99 03/03/19 12:00 81 7/13/19 12:00 40 03/03/19 12:00 19 Mechanical Ventilator 40 03/03/19 12:00 Mechanical Ventilator Mechanical Ventilator 03/03/19 12:00 98.4 85 19 152/125 (134) 99 03/03/19 11:30 79 22 152/125 (134) 96 03/03/19 11:10 79 26 40 03/03/19 11:00 72 24 140/49 (79) 100 03/03/19 11:00 24 Mechanical Ventilator 40 03/03/19 10:30 72 24 140/49 (79) 97 03/03/19 10:00 72 24 139/48 (78) 100 03/03/19 10:00 24 Mechanical Ventilator 40 Intake and Output 03/04/19 03/05/19 19:00 07:00 Intake Total 755 ml 340 ml Output Total 2490 ml 1545 ml Balance -1735 ml -1205 ml Free Water 50 ml IV Total 705 ml 340 ml Tube Feeding 0 ml 0 ml Output Urine Total 2440 ml 1445 ml Stool Total 50 ml 100 ml Labs Test 03/02/19 17:50 03/03/19 08:30 03/03/19 11:00 03/04/19 05:59 White Blood Count 3.4 K/UL (4.8-10.8) 3.1 K/UL (4.8-10.8) 3.7 K/UL (4.8-10.8) Red Blood Count 2.84 M/UL (4.70-6.10) 2.87 M/UL (4.70-6.10) 2.95 M/UL (4.70-6.10) Hemoglobin 8.1 G/DL (14.2-18.0) 8.4 G/DL (14.2-18.0) 8.6 G/DL (14.2-18.0) Hematocrit 25.1 % (42.0-52.0) 24.9 % (42.0-52.0) 25.9 % (42.0-52.0) Mean Corpuscular Volume 88 FL (80-99) 87 FL (80-99) 88 FL (80-99) Mean Corpuscular Hemoglobin 28.5 PG (27.0-31.0) 29.2 PG (27.0-31.0) 29.1 PG (27.0-31.0) Mean Corpuscular Hemoglobin Concent 32.3 G/DL (32.0-36.0) 33.8 G/DL (32.0-36.0) 33.0 G/DL (32.0-36.0) Red Cell Distribution Width 16.1 % (11.6-14.8) 16.9 % (11.6-14.8) 16.9 % (11.6-14.8) Platelet Count 94 K/UL (150-450) 106 K/UL (150-450) 105 K/UL (150-450) Mean Platelet Volume 6.2 FL (6.5-10.1) 5.7 FL (6.5-10.1) 6.3 FL (6.5-10.1) Neutrophils (%) (Auto) % (45.0-75.0) % (45.0-75.0) 67.9 % (45.0-75.0) Lymphocytes (%) (Auto) % (20.0-45.0) % (20.0-45.0) 16.1 % (20.0-45.0) Monocytes (%) (Auto) % (1.0-10.0) % (1.0-10.0) 13.6 % (1.0-10.0) Eosinophils (%) (Auto) % (0.0-3.0) % (0.0-3.0) 1.8 % (0.0-3.0) Basophils (%) (Auto) % (0.0-2.0) % (0.0-2.0) 0.6 % (0.0-2.0) Differential Total Cells Counted 100 100 Neutrophils % (Manual) 73 % (45-75) 76 % (45-75) Lymphocytes % (Manual) 15 % (20-45) 15 % (20-45) Monocytes % (Manual) 9 % (1-10) 6 % (1-10) Eosinophils % (Manual) 2 % (0-3) 3 % (0-3) Basophils % (Manual) 1 % (0-2) 0 % (0-2) Band Neutrophils 0 % (0-8) 0 % (0-8) Platelet Estimate Decreased Decreased Platelet Morphology Normal Normal Hypochromasia 1+ Anisocytosis 1+ 1+ Sodium Level 139 MMOL/L (136-145) 140 MMOL/L (136-145) 143 MMOL/L (136-145) Potassium Level 3.4 MMOL/L (3.5-5.1) 3.9 MMOL/L (3.5-5.1) 3.6 MMOL/L (3.5-5.1) Chloride Level 104 MMOL/L (98-107) 107 MMOL/L (98-107) 107 MMOL/L (98-107) Carbon Dioxide Level 26 MMOL/L (21-32) 28 MMOL/L (21-32) 29 MMOL/L (21-32) Anion Gap 9 mmol/L (5-15) 5 mmol/L (5-15) 7 mmol/L (5-15) Blood Urea Nitrogen 47 mg/dL (7-18) 43 mg/dL (7-18) 36 mg/dL (7-18) Creatinine 2.0 MG/DL (0.55-1.30) 1.8 MG/DL (0.55-1.30) 1.8 MG/DL (0.55-1.30) Estimat Glomerular Filtration Rate 34.4 mL/min (>60) 38.8 mL/min (>60) 38.8 mL/min (>60) Glucose Level 185 MG/DL (74-106) 247 MG/DL (74-106) 225 MG/DL (74-106) Calcium Level 8.5 MG/DL (8.5-10.1) 8.8 MG/DL (8.5-10.1) 9.0 MG/DL (8.5-10.1) Total Bilirubin 0.5 MG/DL (0.2-1.0) 0.5 MG/DL (0.2-1.0) Aspartate Amino Transf (AST/SGOT) 69 U/L (15-37) 78 U/L (15-37) Alanine Aminotransferase (ALT/SGPT) 66 U/L (12-78) 106 U/L (12-78) Alkaline Phosphatase 114 U/L (46-116) 131 U/L (46-116) Total Protein 4.9 G/DL (6.4-8.2) 5.6 G/DL (6.4-8.2) Albumin 2.2 G/DL (3.4-5.0) 2.1 G/DL (3.4-5.0) Globulin 2.7 g/dL 3.5 g/dL Albumin/Globulin Ratio 0.8 (1.0-2.7) 0.6 (1.0-2.7) Urine Color Pale yellow Urine Appearance Slightly cloudy Urine pH 5 (4.5-8.0) Urine Specific [place] 1.005 (1.005-1.035) Urine Protein 2+ (NEGATIVE) Urine Glucose (UA) Negative (NEGATIVE) Urine Ketones Negative (NEGATIVE) Urine Blood 5+ (NEGATIVE) Urine Nitrite Negative (NEGATIVE) Urine Bilirubin Negative (NEGATIVE) Urine Urobilinogen Normal MG/DL (0.0-1.0) Urine Leukocyte Esterase Negative (NEGATIVE) Urine RBC 60-80 /HPF (0 - 0) Urine WBC 0 /HPF (0 - 0) Urine Squamous Epithelial Cells Occasional /LPF Urine Bacteria None /HPF (NONE) Uric Acid 4.8 MG/DL (2.6-7.2) Phosphorus Level 2.6 MG/DL (2.5-4.9) Magnesium Level 1.7 MG/DL (1.8-2.4) C-Reactive Protein, Quantitative 8.4 mg/dL (0.00-0.90) Pro-B-Type Natriuretic Peptide 52400 pg/mL (0-125) Random Vancomycin Level 8.0 ug/mL Test 03/05/19 04:45 White Blood Count 3.4 K/UL (4.8-10.8) Red Blood Count 2.84 M/UL (4.70-6.10) Hemoglobin 8.2 G/DL (14.2-18.0) Hematocrit 25.0 % (42.0-52.0) Mean Corpuscular Volume 88 FL (80-99) Mean Corpuscular Hemoglobin 28.9 PG (27.0-31.0) Mean Corpuscular Hemoglobin Concent 32.9 G/DL (32.0-36.0) Red Cell Distribution Width 16.8 % (11.6-14.8) Platelet Count 96 K/UL (150-450) Mean Platelet Volume 6.4 FL (6.5-10.1) Neutrophils (%) (Auto) % (45.0-75.0) Lymphocytes (%) (Auto) % (20.0-45.0) Monocytes (%) (Auto) % (1.0-10.0) Eosinophils (%) (Auto) % (0.0-3.0) Basophils (%) (Auto) % (0.0-2.0) Differential Total Cells Counted 100 Neutrophils % (Manual) 60 % (45-75) Lymphocytes % (Manual) 22 % (20-45) Monocytes % (Manual) 15 % (1-10) Eosinophils % (Manual) 2 % (0-3) Basophils % (Manual) 1 % (0-2) Band Neutrophils 0 % (0-8) Platelet Estimate Decreased Platelet Morphology Normal Hypochromasia 2+ Anisocytosis 1+ Sodium Level 140 MMOL/L (136-145) Potassium Level 3.4 MMOL/L (3.5-5.1) Chloride Level 103 MMOL/L (98-107) Carbon Dioxide Level 29 MMOL/L (21-32) Anion Gap 8 mmol/L (5-15) Blood Urea Nitrogen 32 mg/dL (7-18) Creatinine 1.6 MG/DL (0.55-1.30) Estimat Glomerular Filtration Rate 44.5 mL/min (>60) Glucose Level 69 MG/DL (74-106) Uric Acid 4.6 MG/DL (2.6-7.2) Calcium Level 9.0 MG/DL (8.5-10.1) Phosphorus Level 2.2 MG/DL (2.5-4.9) Magnesium Level 1.3 MG/DL (1.8-2.4) Total Bilirubin 0.6 MG/DL (0.2-1.0) Aspartate Amino Transf (AST/SGOT) 58 U/L (15-37) Alanine Aminotransferase (ALT/SGPT) 76 U/L (12-78) Alkaline Phosphatase 108 U/L (46-116) C-Reactive Protein, Quantitative 9.1 mg/dL (0.00-0.90) Pro-B-Type Natriuretic Peptide 75745 pg/mL (0-125) Total Protein 5.2 G/DL (6.4-8.2) Albumin 2.1 G/DL (3.4-5.0) Globulin 3.1 g/dL Albumin/Globulin Ratio 0.7 (1.0-2.7) Random Vancomycin Level 11.4 ug/mL Height (Feet): 6 Height (Inches): 0.00 Weight (Pounds): 266 Objective PHYSICAL EXAMINATION: GENERAL: NAD VITAL SIGNS: Have been reviewed. HEAD AND NECK: Shows no JVD. NG+ vent+ LUNGS: Coarse rhonchi. CARDIOVASCULAR: Shows regular S1 and S2 with no gallop or murmur. ABDOMEN: Soft. EXTREMITIES: No pitting edema. Chan Hernandez MD Mar 05, 2019 09:39
--- NOTE | 2019-03-05 10:00 | NUR ---
NURSE NOTES: Fentanyl drip is maintained at 300mcg/hour to maintain RASS score of -2 light sedation. VS stable. Pt is asleep in no apparent distress.
[2019-03-05] MEDS ORDERED: Potassium Phosphate 30 MM in NS 275 ML IV ONE (10:30)
--- NOTE | 2019-03-05 10:36 | Nephrology Progress Note ---
Assessment/Plan Problem List: (1) ISH (acute kidney injury) Assessment: Cr lowering (2) HIV (human immunodeficiency virus infection) (3) NSTEMI (non-ST elevated myocardial infarction) Assessment: troponin decreasing (4) Hypoxia (5) Anemia (6) Diabetes Assessment Acute Renal failure- Cr leveling- Urine out put is good Acidosis improved Acute respiratory failure- Require intubation and Mechanical Ventilation- Anemia- Elevated troponin / AR HTN DM HIV Antibody + Plan Trach 03/02 mag and K and Phos supplement as needed adjust BP meds on feeding IV protonix transfusiosn as needed BP med adjustment UA and urine studies Avoid Nephrotoxics as possible Monitor renal parameters keep BP and BS in check Per orders No HD at this time Kidney RADHA noted adjust BP meds add Isordil Subjective ROS Limited/Unobtainable: Yes Objective Objective Last 24 Hour Vital Signs Date Time Temp Pulse Resp B/P (MAP) Pulse Ox O2 Delivery O2 Flow Rate FiO2 03/05/19 10:00 73 24 140/55 (83) 100 03/05/19 09:30 70 24 133/53 (79) 100 03/05/19 09:01 73 24 40 03/05/19 09:00 74 23 135/55 (81) 99 03/05/19 08:30 84 24 141/59 (86) 99 03/05/19 08:07 86 153/59 03/05/19 08:07 86 153/59 03/05/19 08:00 92 03/05/19 08:00 40 03/05/19 08:00 99.2 96 23 151/76 (101) 100 03/05/19 08:00 Mechanical Ventilator Mechanical Ventilator 03/05/19 07:00 22 Mechanical Ventilator 40 03/05/19 07:00 86 25 100 Mechanical Ventilator 40 03/05/19 07:00 90 21 153/59 (90) 100 03/05/19 06:50 85 26 100 Mechanical Ventilator 40 03/05/19 06:49 86 25 40 03/05/19 06:30 88 20 157/64 (95) 100 03/05/19 06:00 24 Mechanical Ventilator 40 03/05/19 06:00 86 23 156/61 (92) 100 03/05/19 05:34 160/128 03/05/19 05:33 160/128 03/05/19 05:30 88 23 162/64 (96) 100 03/05/19 05:24 86 25 40 03/05/19 05:00 83 23 160/128 (139) 100 03/05/19 05:00 24 Mechanical Ventilator 40 03/05/19 04:30 84 22 160/58 (92) 100 03/05/19 04:00 83 03/05/19 04:00 99.0 94 25 109/57 (74) 99 03/05/19 04:00 Mechanical Ventilator Mechanical Ventilator 03/05/19 04:00 24 Mechanical Ventilator 40 03/05/19 04:00 40 03/05/19 03:30 82 22 150/52 (84) 98 03/05/19 03:07 76 22 40 03/05/19 03:00 21 Mechanical Ventilator 40 03/05/19 03:00 95 24 154/61 (92) 98 03/05/19 02:30 78 20 147/53 (84) 100 03/05/19 02:00 22 Mechanical Ventilator 40 03/05/19 02:00 79 14 148/54 (85) 99 03/05/19 01:30 84 21 145/59 (87) 99 03/05/19 01:13 77 25 99 Mechanical Ventilator 40 03/05/19 01:11 78 24 40 03/05/19 01:00 77 20 148/98 (115) 99 03/05/19 01:00 22 Mechanical Ventilator 40 03/05/19 01:00 74 25 97 Mechanical Ventilator 40 03/05/19 00:30 81 17 143/56 (85) 100 03/05/19 00:00 98.7 76 23 147/53 (84) 100 03/05/19 00:00 84 03/05/19 00:00 40 03/05/19 00:00 Mechanical Ventilator Mechanical Ventilator 03/05/19 00:00 22 Mechanical Ventilator 40 03/04/19 23:30 75 24 40 03/04/19 23:30 73 24 140/52 (81) 100 03/04/19 23:01 71 21 142/58 (86) 96 03/04/19 23:00 24 Mechanical Ventilator 40 03/04/19 22:48 24 Mechanical Ventilator 40 03/04/19 22:30 71 18 142/56 (84) 99 03/04/19 22:00 18 Mechanical Ventilator 40 03/04/19 22:00 75 14 139/49 (79) 98 03/04/19 21:54 141/53 03/04/19 21:54 141/53 03/04/19 21:30 82 33 40 03/04/19 21:30 84 23 141/53 (82) 98 03/04/19 21:00 23 Mechanical Ventilator 40 03/04/19 21:00 89 23 155/57 (89) 100 03/04/19 20:57 80 138/55 03/04/19 20:30 80 24 138/55 (82) 99 03/04/19 20:00 80 03/04/19 20:00 Mechanical Ventilator Mechanical Ventilator 03/04/19 20:00 21 Mechanical Ventilator 40 03/04/19 20:00 40 03/04/19 20:00 77 23 129/52 (77) 99 03/04/19 19:30 99.2 73 21 120/87 (98) 100 03/04/19 19:22 75 24 40 03/04/19 19:20 76 24 100 Mechanical Ventilator 40 03/04/19 19:10 69 24 99 Mechanical Ventilator 40 03/04/19 19:00 24 Mechanical Ventilator 03/04/19 19:00 69 22 118/63 (81) 99 03/04/19 18:30 71 24 133/59 (83) 99 03/04/19 18:00 23 Mechanical Ventilator 40 03/04/19 18:00 73 24 136/72 (93) 100 03/04/19 17:30 83 20 154/70 (98) 100 03/04/19 17:21 72 24 40 03/04/19 17:00 71 18 154/70 (98) 100 03/04/19 17:00 15 Mechanical Ventilator 03/04/19 16:30 74 24 144/47 (79) 100 03/04/19 16:00 98.7 69 24 150/52 (84) 99 03/04/19 16:00 Mechanical Ventilator Mechanical Ventilator 03/04/19 16:00 40 03/04/19 16:00 71 03/04/19 16:00 24 Mechanical Ventilator 40 03/04/19 15:30 71 21 128/44 (72) 97 03/04/19 15:08 67 24 40 03/04/19 15:00 69 24 150/58 (88) 98 03/04/19 15:00 24 Mechanical Ventilator 40 03/04/19 14:30 71 17 133/50 (77) 98 03/04/19 14:28 133/50 03/04/19 14:27 133/50 03/04/19 14:00 84 17 133/50 (77) 98 03/04/19 14:00 21 Mechanical Ventilator 03/04/19 13:30 72 25 135/65 (88) 98 03/04/19 13:12 74 24 100 Mechanical Ventilator 40 03/04/19 13:12 64 24 40 03/04/19 13:04 100.2 03/04/19 13:00 68 24 155/85 (108) 97 03/04/19 13:00 24 Mechanical Ventilator 40 03/04/19 13:00 67 24 98 Mechanical Ventilator 40 03/04/19 12:30 79 23 153/78 (103) 98 03/04/19 12:00 Mechanical Ventilator Mechanical Ventilator 03/04/19 12:00 100.5 74 24 157/66 (96) 98 03/04/19 12:00 40 03/04/19 12:00 24 Mechanical Ventilator 30 03/04/19 12:00 79 03/04/19 12:00 40 03/04/19 11:30 73 20 147/47 (80) 99 03/04/19 11:28 99.0 03/04/19 11:00 69 24 146/50 (82) 99 03/04/19 10:58 24 Mechanical Ventilator 03/04/19 10:45 73 24 40 Intake and Output 03/04/19 03/05/19 19:00 07:00 Intake Total 755 ml 340 ml Output Total 2490 ml 1545 ml Balance -1735 ml -1205 ml Free Water 50 ml IV Total 705 ml 340 ml Tube Feeding 0 ml 0 ml Output Urine Total 2440 ml 1445 ml Stool Total 50 ml 100 ml Laboratory Tests 03/05/19 04:45: White Blood Count 3.4L, Red Blood Count 2.84L, Hemoglobin 8.2L, Hematocrit 25.0L , Mean Corpuscular Volume 88, Mean Corpuscular Hemoglobin 28.9, Mean Corpuscular Hemoglobin Concent 32.9, Red Cell Distribution Width 16.8H, Platelet Count 96L, Mean Platelet Volume 6.4L, Neutrophils (%) (Auto) , Lymphocytes (%) (Auto) , Monocytes (%) (Auto) , Eosinophils (%) (Auto) , Basophils (%) (Auto) , Differential Total Cells Counted 100, Neutrophils % ( Manual) 60, Lymphocytes % (Manual) 22, Monocytes % (Manual) 15H, Eosinophils % ( Manual) 2, Basophils % (Manual) 1, Band Neutrophils 0, Platelet Estimate DecreasedL, Platelet Morphology Normal, Hypochromasia 2+, Anisocytosis 1+, Sodium Level 140, Potassium Level 3.4L, Chloride Level 103, Carbon Dioxide Level 29, Anion Gap 8, Blood Urea Nitrogen 32H, Creatinine 1.6H, Estimat Glomerular Filtration Rate 44.5, Glucose Level 69#L, Uric Acid 4.6, Calcium Level 9.0, Phosphorus Level 2.2L, Magnesium Level 1.3L, Total Bilirubin 0.6, Aspartate Amino Transf (AST/SGOT) 58H, Alanine Aminotransferase (ALT/SGPT) 76, Alkaline Phosphatase 108, C-Reactive Protein, Quantitative 9.1H, Pro-B-Type Natriuretic Peptide 17924F, Total Protein 5.2L, Albumin 2.1L, Globulin 3.1, Albumin/Globulin Ratio 0.7L, Random Vancomycin Level 11.4 Height (Feet): 6 Height (Inches): 0.00 Weight (Pounds): 266 General Appearance: no apparent distress EENT: other - trach Cardiovascular: normal rate Respiratory/Chest: decreased breath sounds Abdomen: distended Objective no change Mike Mcdonald MD Mar 05, 2019 10:36
--- NOTE | 2019-03-05 10:50 | General Progress Note ---
Assessment/Plan Status: stable Assessment/Plan: 58 y Male admitted to the hospital due to fever, shortness of breath and chest pain. # Multilobar pneumonia in patient with HIV - Broad sp atbx started. Continue Zosyn, Vancomycin, Azithromycin, TM-SMX - Fluconazole per ID - Droplet precaution - Flu swab negative - Oxygen support, ventilatory support as not able to wean off ventilator due to agitation. - ID consult appreciated. # Hypoxemic respiratory failure - Critical care follow up. Unable to wean off the ventilator. Tracheostomy completed. - Due to pneumonia # Chest pain - EKG with bifascicular block RBB and LAFB, no ST changes. - Trend troponin x3 completed - ECHO completed with no WMA and preserved EF. Dr. Francois consulted. Consideration for outpatient cath vs possibly myocarditis due to underlying viral infection. No evidence of Takotsubo per TTE. - NGT prn - Pain control with morphine # HIV - Continue HARRT - VL is undetectable per patient report. T cell count > 400 - CD 4 count 191 # HTN - Resume home medication - Clonidine, Isordil added. # [place] hyponatremia - Monitor - good response to NS # CKD 2-3 - Trend renal function - Worsening creatinine to 2.8 today. 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 Currently renal function stable and L femoral dialysis access removed. - R PICC done last week. # Failure to thrive and moderate protein caloric malnutrition - PEG scheduled for today. - NPO - Dr. Ricketts following up and coordinating procedure time. # Hypomagnesemia - Replete today # Hypophosphatemia - Replete today # Diabetes Mellitus - Lantus 10 BID - Endocrinology following up appreciated. - Resolved hypoglycemia ( 68 ) today. DVT and GI ppx Full code Subjective ROS Limited/Unobtainable: Yes Allergies: Coded Allergies: No Known Allergies (Unverified , 02/05/13) Objective Last 24 Hour Vital Signs Date Time Temp Pulse Resp B/P (MAP) Pulse Ox O2 Delivery O2 Flow Rate FiO2 03/05/19 10:00 73 24 140/55 (83) 100 03/05/19 09:30 70 24 133/53 (79) 100 03/05/19 09:01 73 24 40 03/05/19 09:00 74 23 135/55 (81) 99 03/05/19 08:30 84 24 141/59 (86) 99 03/05/19 08:07 86 153/59 03/05/19 08:07 86 153/59 03/05/19 08:00 92 03/05/19 08:00 40 03/05/19 08:00 99.2 96 23 151/76 (101) 100 03/05/19 08:00 Mechanical Ventilator Mechanical Ventilator 03/05/19 07:00 22 Mechanical Ventilator 40 03/05/19 07:00 86 25 100 Mechanical Ventilator 40 03/05/19 07:00 90 21 153/59 (90) 100 03/05/19 06:50 85 26 100 Mechanical Ventilator 40 03/05/19 06:49 86 25 40 03/05/19 06:30 88 20 157/64 (95) 100 03/05/19 06:00 24 Mechanical Ventilator 40 03/05/19 06:00 86 23 156/61 (92) 100 03/05/19 05:34 160/128 03/05/19 05:33 160/128 03/05/19 05:30 88 23 162/64 (96) 100 03/05/19 05:24 86 25 40 03/05/19 05:00 83 23 160/128 (139) 100 03/05/19 05:00 24 Mechanical Ventilator 40 03/05/19 04:30 84 22 160/58 (92) 100 03/05/19 04:00 83 03/05/19 04:00 99.0 94 25 109/57 (74) 99 03/05/19 04:00 Mechanical Ventilator Mechanical Ventilator 03/05/19 04:00 24 Mechanical Ventilator 40 03/05/19 04:00 40 03/05/19 03:30 82 22 150/52 (84) 98 03/05/19 03:07 76 22 40 03/05/19 03:00 21 Mechanical Ventilator 40 03/05/19 03:00 95 24 154/61 (92) 98 03/05/19 02:30 78 20 147/53 (84) 100 03/05/19 02:00 22 Mechanical Ventilator 40 03/05/19 02:00 79 14 148/54 (85) 99 03/05/19 01:30 84 21 145/59 (87) 99 03/05/19 01:13 77 25 99 Mechanical Ventilator 40 03/05/19 01:11 78 24 40 03/05/19 01:00 77 20 148/98 (115) 99 03/05/19 01:00 22 Mechanical Ventilator 40 03/05/19 01:00 74 25 97 Mechanical Ventilator 40 03/05/19 00:30 81 17 143/56 (85) 100 03/05/19 00:00 98.7 76 23 147/53 (84) 100 03/05/19 00:00 84 03/05/19 00:00 40 03/05/19 00:00 Mechanical Ventilator Mechanical Ventilator 03/05/19 00:00 22 Mechanical Ventilator 40 03/04/19 23:30 75 24 40 03/04/19 23:30 73 24 140/52 (81) 100 03/04/19 23:01 71 21 142/58 (86) 96 03/04/19 23:00 24 Mechanical Ventilator 40 03/04/19 22:48 24 Mechanical Ventilator 40 03/04/19 22:30 71 18 142/56 (84) 99 03/04/19 22:00 18 Mechanical Ventilator 40 03/04/19 22:00 75 14 139/49 (79) 98 03/04/19 21:54 141/53 03/04/19 21:54 141/53 03/04/19 21:30 82 33 40 03/04/19 21:30 84 23 141/53 (82) 98 03/04/19 21:00 23 Mechanical Ventilator 40 03/04/19 21:00 89 23 155/57 (89) 100 03/04/19 20:57 80 138/55 03/04/19 20:30 80 24 138/55 (82) 99 03/04/19 20:00 80 03/04/19 20:00 Mechanical Ventilator Mechanical Ventilator 03/04/19 20:00 21 Mechanical Ventilator 40 03/04/19 20:00 40 03/04/19 20:00 77 23 129/52 (77) 99 03/04/19 19:30 99.2 73 21 120/87 (98) 100 03/04/19 19:22 75 24 40 03/04/19 19:20 76 24 100 Mechanical Ventilator 40 03/04/19 19:10 69 24 99 Mechanical Ventilator 40 03/04/19 19:00 24 Mechanical Ventilator 03/04/19 19:00 69 22 118/63 (81) 99 03/04/19 18:30 71 24 133/59 (83) 99 03/04/19 18:00 23 Mechanical Ventilator 40 03/04/19 18:00 73 24 136/72 (93) 100 03/04/19 17:30 83 20 154/70 (98) 100 03/04/19 17:21 72 24 40 03/04/19 17:00 71 18 154/70 (98) 100 03/04/19 17:00 15 Mechanical Ventilator 03/04/19 16:30 74 24 144/47 (79) 100 03/04/19 16:00 98.7 69 24 150/52 (84) 99 03/04/19 16:00 Mechanical Ventilator Mechanical Ventilator 03/04/19 16:00 40 03/04/19 16:00 71 03/04/19 16:00 24 Mechanical Ventilator 40 03/04/19 15:30 71 21 128/44 (72) 97 03/04/19 15:08 67 24 40 03/04/19 15:00 69 24 150/58 (88) 98 03/04/19 15:00 24 Mechanical Ventilator 40 03/04/19 14:30 71 17 133/50 (77) 98 03/04/19 14:28 133/50 03/04/19 14:27 133/50 03/04/19 14:00 84 17 133/50 (77) 98 03/04/19 14:00 21 Mechanical Ventilator 03/04/19 13:30 72 25 135/65 (88) 98 03/04/19 13:12 74 24 100 Mechanical Ventilator 40 03/04/19 13:12 64 24 40 03/04/19 13:04 100.2 03/04/19 13:00 68 24 155/85 (108) 97 03/04/19 13:00 24 Mechanical Ventilator 40 03/04/19 13:00 67 24 98 Mechanical Ventilator 40 03/04/19 12:30 79 23 153/78 (103) 98 03/04/19 12:00 Mechanical Ventilator Mechanical Ventilator 03/04/19 12:00 100.5 74 24 157/66 (96) 98 03/04/19 12:00 40 03/04/19 12:00 24 Mechanical Ventilator 30 03/04/19 12:00 79 03/04/19 12:00 40 03/04/19 11:30 73 20 147/47 (80) 99 03/04/19 11:28 99.0 03/04/19 11:00 69 24 146/50 (82) 99 03/04/19 10:58 24 Mechanical Ventilator 03/04/19 10:45 73 24 40 Intake and Output 03/04/19 03/05/19 19:00 07:00 Intake Total 755 ml 340 ml Output Total 2490 ml 1545 ml Balance -1735 ml -1205 ml Free Water 50 ml IV Total 705 ml 340 ml Tube Feeding 0 ml 0 ml Output Urine Total 2440 ml 1445 ml Stool Total 50 ml 100 ml Laboratory Tests 03/05/19 04:45: White Blood Count 3.4L, Red Blood Count 2.84L, Hemoglobin 8.2L, Hematocrit 25.0L , Mean Corpuscular Volume 88, Mean Corpuscular Hemoglobin 28.9, Mean Corpuscular Hemoglobin Concent 32.9, Red Cell Distribution Width 16.8H, Platelet Count 96L, Mean Platelet Volume 6.4L, Neutrophils (%) (Auto) , Lymphocytes (%) (Auto) , Monocytes (%) (Auto) , Eosinophils (%) (Auto) , Basophils (%) (Auto) , Differential Total Cells Counted 100, Neutrophils % ( Manual) 60, Lymphocytes % (Manual) 22, Monocytes % (Manual) 15H, Eosinophils % ( Manual) 2, Basophils % (Manual) 1, Band Neutrophils 0, Platelet Estimate DecreasedL, Platelet Morphology Normal, Hypochromasia 2+, Anisocytosis 1+, Sodium Level 140, Potassium Level 3.4L, Chloride Level 103, Carbon Dioxide Level 29, Anion Gap 8, Blood Urea Nitrogen 32H, Creatinine 1.6H, Estimat Glomerular Filtration Rate 44.5, Glucose Level 69#L, Uric Acid 4.6, Calcium Level 9.0, Phosphorus Level 2.2L, Magnesium Level 1.3L, Total Bilirubin 0.6, Aspartate Amino Transf (AST/SGOT) 58H, Alanine Aminotransferase (ALT/SGPT) 76, Alkaline Phosphatase 108, C-Reactive Protein, Quantitative 9.1H, Pro-B-Type Natriuretic Peptide 26410I, Total Protein 5.2L, Albumin 2.1L, Globulin 3.1, Albumin/Globulin Ratio 0.7L, Random Vancomycin Level 11.4 Height (Feet): 6 Height (Inches): 0.00 Weight (Pounds): 266 General Appearance: WD/WN, no apparent distress, other - sedated, tracheostomy in place EENT: PERRL/EOMI Neck: non-tender Cardiovascular: normal peripheral pulses, normal rate Respiratory/Chest: chest wall non-tender Abdomen: normal bowel sounds, decreased bowel sounds 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
--- NOTE | 2019-03-05 11:00 | NUR ---
NURSE NOTES: Pt was seen by Dr Mcdonald. Orders were noted and being followed for Mag 4gm and Kphos 30mm IV replacements for Mag 1.3 and K3.4 levels. VS stable.
--- NOTE | 2019-03-05 11:31 | Pulmonolgy Critical Care Note ---
Critical Care - Asmt/Plan Problems: (1) Endotracheally intubated (2) Acute hypoxemic respiratory failure (3) Pneumonia (4) NSTEMI (non-ST elevated myocardial infarction) (5) AIDS (6) HIV disease (7) Hypertension (8) MDD (major depressive disorder), recurrent episode, moderate (9) Anemia (10) CKD (chronic kidney disease) (11) History of stroke (12) Diabetes (13) Anxiety (14) Malignant hypertension (15) Occult blood positive stool Assessment/Plan: VDRF, extubated 02/19, re-intubated 02/20, trach 03/02 Hemoptysis, hematemesis ARDS Acute respiratory failure B pulmonary infiltrates, ? multilobar CAP vs atypical infection vs other ? PJP AIDS (CD4 191) NSTEMI H/O prior CVA HTN HL DM with uncontrolled BS ISH on CKD Anemia, FOBT + PLAN: Continue ventilatory support/settings reviewed Daily SBT Keep PEEP 5, titrate down FiO2 to keep SaO2 > 90% RTC and PRN HHN's Continue Abx & flucon per ID Off steroids Monitor volumes and renal function --> D/W Tamara Rachel, continue Zaroxyln 10 and lasix 40 IV qDaily - so far renal fxn improving with diuresis F/U cards recs: will need further ischemia eval/cath once stabilized DVT Px: Hep SQ Monitor for bleeding, F/U GI recs, transfuse PRN Hb < 7 --> PLAN FOR EGD and PEG today F/U ENDO recs TF's (held for PEG) FC, continue to discuss GOC D/W RN and RT @ bedside CCT 35 Critical Care - Objective Last 24 Hour Vital Signs Date Time Temp Pulse Resp B/P (MAP) Pulse Ox O2 Delivery O2 Flow Rate FiO2 03/05/19 11:00 74 23 143/54 (83) 100 03/05/19 11:00 74 25 40 03/05/19 10:00 73 24 140/55 (83) 100 03/05/19 09:30 70 24 133/53 (79) 100 03/05/19 09:01 73 24 40 03/05/19 09:00 74 23 135/55 (81) 99 03/05/19 08:30 84 24 141/59 (86) 99 03/05/19 08:07 86 153/59 03/05/19 08:07 86 153/59 03/05/19 08:00 92 03/05/19 08:00 40 03/05/19 08:00 99.2 96 23 151/76 (101) 100 03/05/19 08:00 Mechanical Ventilator Mechanical Ventilator 03/05/19 07:00 22 Mechanical Ventilator 40 03/05/19 07:00 86 25 100 Mechanical Ventilator 40 03/05/19 07:00 90 21 153/59 (90) 100 03/05/19 06:50 85 26 100 Mechanical Ventilator 40 03/05/19 06:49 86 25 40 03/05/19 06:30 88 20 157/64 (95) 100 03/05/19 06:00 24 Mechanical Ventilator 40 03/05/19 06:00 86 23 156/61 (92) 100 03/05/19 05:34 160/128 03/05/19 05:33 160/128 03/05/19 05:30 88 23 162/64 (96) 100 03/05/19 05:24 86 25 40 03/05/19 05:00 83 23 160/128 (139) 100 03/05/19 05:00 24 Mechanical Ventilator 40 03/05/19 04:30 84 22 160/58 (92) 100 03/05/19 04:00 83 03/05/19 04:00 99.0 94 25 109/57 (74) 99 03/05/19 04:00 Mechanical Ventilator Mechanical Ventilator 03/05/19 04:00 24 Mechanical Ventilator 40 03/05/19 04:00 40 03/05/19 03:30 82 22 150/52 (84) 98 03/05/19 03:07 76 22 40 03/05/19 03:00 21 Mechanical Ventilator 40 03/05/19 03:00 95 24 154/61 (92) 98 03/05/19 02:30 78 20 147/53 (84) 100 03/05/19 02:00 22 Mechanical Ventilator 40 03/05/19 02:00 79 14 148/54 (85) 99 03/05/19 01:30 84 21 145/59 (87) 99 03/05/19 01:13 77 25 99 Mechanical Ventilator 40 03/05/19 01:11 78 24 40 03/05/19 01:00 77 20 148/98 (115) 99 03/05/19 01:00 22 Mechanical Ventilator 40 03/05/19 01:00 74 25 97 Mechanical Ventilator 40 03/05/19 00:30 81 17 143/56 (85) 100 03/05/19 00:00 98.7 76 23 147/53 (84) 100 03/05/19 00:00 84 03/05/19 00:00 40 03/05/19 00:00 Mechanical Ventilator Mechanical Ventilator 03/05/19 00:00 22 Mechanical Ventilator 40 03/04/19 23:30 75 24 40 03/04/19 23:30 73 24 140/52 (81) 100 03/04/19 23:01 71 21 142/58 (86) 96 03/04/19 23:00 24 Mechanical Ventilator 40 03/04/19 22:48 24 Mechanical Ventilator 40 03/04/19 22:30 71 18 142/56 (84) 99 03/04/19 22:00 18 Mechanical Ventilator 40 03/04/19 22:00 75 14 139/49 (79) 98 03/04/19 21:54 141/53 03/04/19 21:54 141/53 03/04/19 21:30 82 33 40 03/04/19 21:30 84 23 141/53 (82) 98 03/04/19 21:00 23 Mechanical Ventilator 40 03/04/19 21:00 89 23 155/57 (89) 100 03/04/19 20:57 80 138/55 03/04/19 20:30 80 24 138/55 (82) 99 03/04/19 20:00 80 03/04/19 20:00 Mechanical Ventilator Mechanical Ventilator 03/04/19 20:00 21 Mechanical Ventilator 40 03/04/19 20:00 40 03/04/19 20:00 77 23 129/52 (77) 99 03/04/19 19:30 99.2 73 21 120/87 (98) 100 03/04/19 19:22 75 24 40 03/04/19 19:20 76 24 100 Mechanical Ventilator 40 03/04/19 19:10 69 24 99 Mechanical Ventilator 40 03/04/19 19:00 24 Mechanical Ventilator 03/04/19 19:00 69 22 118/63 (81) 99 03/04/19 18:30 71 24 133/59 (83) 99 03/04/19 18:00 23 Mechanical Ventilator 40 03/04/19 18:00 73 24 136/72 (93) 100 03/04/19 17:30 83 20 154/70 (98) 100 03/04/19 17:21 72 24 40 03/04/19 17:00 71 18 154/70 (98) 100 03/04/19 17:00 15 Mechanical Ventilator 03/04/19 16:30 74 24 144/47 (79) 100 03/04/19 16:00 98.7 69 24 150/52 (84) 99 03/04/19 16:00 Mechanical Ventilator Mechanical Ventilator 03/04/19 16:00 40 03/04/19 16:00 71 03/04/19 16:00 24 Mechanical Ventilator 40 03/04/19 15:30 71 21 128/44 (72) 97 03/04/19 15:08 67 24 40 03/04/19 15:00 69 24 150/58 (88) 98 03/04/19 15:00 24 Mechanical Ventilator 40 03/04/19 14:30 71 17 133/50 (77) 98 03/04/19 14:28 133/50 03/04/19 14:27 133/50 03/04/19 14:00 84 17 133/50 (77) 98 03/04/19 14:00 21 Mechanical Ventilator 03/04/19 13:30 72 25 135/65 (88) 98 03/04/19 13:12 74 24 100 Mechanical Ventilator 40 03/04/19 13:12 64 24 40 03/04/19 13:04 100.2 03/04/19 13:00 68 24 155/85 (108) 97 03/04/19 13:00 24 Mechanical Ventilator 40 03/04/19 13:00 67 24 98 Mechanical Ventilator 40 03/04/19 12:30 79 23 153/78 (103) 98 03/04/19 12:00 Mechanical Ventilator Mechanical Ventilator 03/04/19 12:00 100.5 74 24 157/66 (96) 98 03/04/19 12:00 40 03/04/19 12:00 24 Mechanical Ventilator 30 03/04/19 12:00 79 03/04/19 12:00 40 03/04/19 11:30 73 20 147/47 (80) 99 03/04/19 11:28 99.0 Status: awake Condition: critical HEENT: atraumatic, normocephalic Neck: trach Lungs: clear Heart: HR/BP stable Abdomen: soft, non-tender, active bowel sounds Extremities: no C/C/E Micro: Microbiology Date/Time Source Procedure Growth Status 03/03/19 12:40 Blood Blood Culture - Preliminary NO GROWTH AFTER 24 HOURS Resulted 03/03/19 11:00 Blood Blood Culture - Preliminary NO GROWTH AFTER 24 HOURS Resulted 03/03/19 18:00 Indwelling Cath Urine Culture - Preliminary NO GROWTH AFTER 24 HOURS Resulted Accucheck: 68 Blood Sugars: BS controlled Critical Care - Subjective ROS Limited/Unobtainable: Yes ICU Day: 26 Intubation Day: trach Interval Events: No SBT, plan for PEG JOSE Condition: stable IV Access: PICC EKG Rhythm: Sinus Rhythm FI02: 40 Vent Support Breath Rate: 24 Vent Support Mode: AC Vent Tidal Volume: 550 Sputum Amount: Small PEEP: 5.0 PIP: 28 Fluids: SLIV Drips: FENT Tube Feeding Amount: 0 I&O: Intake and Output 03/04/19 03/05/19 19:00 07:00 Intake Total 755 ml 340 ml Output Total 2490 ml 1545 ml Balance -1735 ml -1205 ml Free Water 50 ml IV Total 705 ml 340 ml Tube Feeding 0 ml 0 ml Output Urine Total 2440 ml 1445 ml Stool Total 50 ml 100 ml Subjective: No SOB no distress no cough ET-Tube: 7.5 ET Position: 24 Labs: Laboratory Tests Test 03/05/19 04:45 White Blood Count 3.4 K/UL (4.8-10.8) L Red Blood Count 2.84 M/UL (4.70-6.10) L Hemoglobin 8.2 G/DL (14.2-18.0) L Hematocrit 25.0 % (42.0-52.0) L Mean Corpuscular Volume 88 FL (80-99) Mean Corpuscular Hemoglobin 28.9 PG (27.0-31.0) Mean Corpuscular Hemoglobin Concent 32.9 G/DL (32.0-36.0) Red Cell Distribution Width 16.8 % (11.6-14.8) H Platelet Count 96 K/UL (150-450) L Mean Platelet Volume 6.4 FL (6.5-10.1) L Neutrophils (%) (Auto) % (45.0-75.0) Lymphocytes (%) (Auto) % (20.0-45.0) Monocytes (%) (Auto) % (1.0-10.0) Eosinophils (%) (Auto) % (0.0-3.0) Basophils (%) (Auto) % (0.0-2.0) Differential Total Cells Counted 100 Neutrophils % (Manual) 60 % (45-75) Lymphocytes % (Manual) 22 % (20-45) Monocytes % (Manual) 15 % (1-10) H Eosinophils % (Manual) 2 % (0-3) Basophils % (Manual) 1 % (0-2) Band Neutrophils 0 % (0-8) Platelet Estimate Decreased L Platelet Morphology Normal Hypochromasia 2+ Anisocytosis 1+ Sodium Level 140 MMOL/L (136-145) Potassium Level 3.4 MMOL/L (3.5-5.1) L Chloride Level 103 MMOL/L (98-107) Carbon Dioxide Level 29 MMOL/L (21-32) Anion Gap 8 mmol/L (5-15) Blood Urea Nitrogen 32 mg/dL (7-18) H Creatinine 1.6 MG/DL (0.55-1.30) H Estimat Glomerular Filtration Rate 44.5 mL/min (>60) Glucose Level 69 MG/DL (74-106) #L Uric Acid 4.6 MG/DL (2.6-7.2) Calcium Level 9.0 MG/DL (8.5-10.1) Phosphorus Level 2.2 MG/DL (2.5-4.9) L Magnesium Level 1.3 MG/DL (1.8-2.4) L Total Bilirubin 0.6 MG/DL (0.2-1.0) Aspartate Amino Transf (AST/SGOT) 58 U/L (15-37) H Alanine Aminotransferase (ALT/SGPT) 76 U/L (12-78) Alkaline Phosphatase 108 U/L (46-116) C-Reactive Protein, Quantitative 9.1 mg/dL (0.00-0.90) H Pro-B-Type Natriuretic Peptide 44173 pg/mL (0-125) H Total Protein 5.2 G/DL (6.4-8.2) L Albumin 2.1 G/DL (3.4-5.0) L Globulin 3.1 g/dL Albumin/Globulin Ratio 0.7 (1.0-2.7) L Random Vancomycin Level 11.4 ug/mL Brett Meredith MD Mar 05, 2019 11:31
--- NOTE | 2019-03-05 11:53 | Pre-Procedure Note/Attestation ---
Pre-Procedure Note/Attestation Complete Prior to Procedure Planned Procedure: not applicable Procedure Narrative: egd/peg Indications for Procedure Pre-Operative Diagnosis: dysphagia Attestation I attest that I discussed the nature of the procedure; its benefits; risks and complications; and alternatives (and the risks and benefits of such alternatives ), prior to the procedure, with the patient (or the patient's legal herbicide service sales representative). I attest that, if there was a reasonable possibility of needing a blood transfusion, the patient (or the patient's legal herbicide service sales representative) was given the [facility] standardized written summary, pursuant to the Nicholas Daniela Blood Safety Act ([place] Health and Safety Code # 1645, as amended). I attest that I re-evaluated the patient just prior to the surgery and that there has been no change in the patient's H&P, except as documented below: Kg Ricketts MD Mar 05, 2019 11:53
--- NOTE | 2019-03-05 11:55 | GI Progress Note ---
Assessment/Plan Assessment/Plan patient needs GT placement no family available will proceed with MD consent Objective Last 24 Hour Vital Signs Date Time Temp Pulse Resp B/P (MAP) Pulse Ox O2 Delivery O2 Flow Rate FiO2 03/05/19 11:00 74 23 143/54 (83) 100 03/05/19 11:00 74 25 40 03/05/19 10:00 73 24 140/55 (83) 100 03/05/19 09:30 70 24 133/53 (79) 100 03/05/19 09:01 73 24 40 03/05/19 09:00 74 23 135/55 (81) 99 03/05/19 08:30 84 24 141/59 (86) 99 03/05/19 08:07 86 153/59 03/05/19 08:07 86 153/59 03/05/19 08:00 92 03/05/19 08:00 40 03/05/19 08:00 99.2 96 23 151/76 (101) 100 03/05/19 08:00 Mechanical Ventilator Mechanical Ventilator 03/05/19 07:00 22 Mechanical Ventilator 40 03/05/19 07:00 86 25 100 Mechanical Ventilator 40 03/05/19 07:00 90 21 153/59 (90) 100 03/05/19 06:50 85 26 100 Mechanical Ventilator 40 03/05/19 06:49 86 25 40 03/05/19 06:30 88 20 157/64 (95) 100 03/05/19 06:00 24 Mechanical Ventilator 40 03/05/19 06:00 86 23 156/61 (92) 100 03/05/19 05:34 160/128 03/05/19 05:33 160/128 03/05/19 05:30 88 23 162/64 (96) 100 03/05/19 05:24 86 25 40 03/05/19 05:00 83 23 160/128 (139) 100 03/05/19 05:00 24 Mechanical Ventilator 40 03/05/19 04:30 84 22 160/58 (92) 100 03/05/19 04:00 83 03/05/19 04:00 99.0 94 25 109/57 (74) 99 03/05/19 04:00 Mechanical Ventilator Mechanical Ventilator 03/05/19 04:00 24 Mechanical Ventilator 40 03/05/19 04:00 40 03/05/19 03:30 82 22 150/52 (84) 98 03/05/19 03:07 76 22 40 03/05/19 03:00 21 Mechanical Ventilator 40 03/05/19 03:00 95 24 154/61 (92) 98 03/05/19 02:30 78 20 147/53 (84) 100 03/05/19 02:00 22 Mechanical Ventilator 40 03/05/19 02:00 79 14 148/54 (85) 99 03/05/19 01:30 84 21 145/59 (87) 99 03/05/19 01:13 77 25 99 Mechanical Ventilator 40 03/05/19 01:11 78 24 40 03/05/19 01:00 77 20 148/98 (115) 99 03/05/19 01:00 22 Mechanical Ventilator 40 03/05/19 01:00 74 25 97 Mechanical Ventilator 40 03/05/19 00:30 81 17 143/56 (85) 100 03/05/19 00:00 98.7 76 23 147/53 (84) 100 03/05/19 00:00 84 03/05/19 00:00 40 03/05/19 00:00 Mechanical Ventilator Mechanical Ventilator 03/05/19 00:00 22 Mechanical Ventilator 40 03/04/19 23:30 75 24 40 03/04/19 23:30 73 24 140/52 (81) 100 03/04/19 23:01 71 21 142/58 (86) 96 03/04/19 23:00 24 Mechanical Ventilator 40 03/04/19 22:48 24 Mechanical Ventilator 40 03/04/19 22:30 71 18 142/56 (84) 99 03/04/19 22:00 18 Mechanical Ventilator 40 03/04/19 22:00 75 14 139/49 (79) 98 03/04/19 21:54 141/53 03/04/19 21:54 141/53 03/04/19 21:30 82 33 40 03/04/19 21:30 84 23 141/53 (82) 98 03/04/19 21:00 23 Mechanical Ventilator 40 03/04/19 21:00 89 23 155/57 (89) 100 03/04/19 20:57 80 138/55 03/04/19 20:30 80 24 138/55 (82) 99 03/04/19 20:00 80 7/14/19 20:00 Mechanical Ventilator Mechanical Ventilator 03/04/19 20:00 21 Mechanical Ventilator 40 03/04/19 20:00 40 03/04/19 20:00 77 23 129/52 (77) 99 03/04/19 19:30 99.2 73 21 120/87 (98) 100 03/04/19 19:22 75 24 40 03/04/19 19:20 76 24 100 Mechanical Ventilator 40 03/04/19 19:10 69 24 99 Mechanical Ventilator 40 03/04/19 19:00 24 Mechanical Ventilator 03/04/19 19:00 69 22 118/63 (81) 99 03/04/19 18:30 71 24 133/59 (83) 99 03/04/19 18:00 23 Mechanical Ventilator 40 03/04/19 18:00 73 24 136/72 (93) 100 03/04/19 17:30 83 20 154/70 (98) 100 03/04/19 17:21 72 24 40 03/04/19 17:00 71 18 154/70 (98) 100 03/04/19 17:00 15 Mechanical Ventilator 03/04/19 16:30 74 24 144/47 (79) 100 03/04/19 16:00 98.7 69 24 150/52 (84) 99 03/04/19 16:00 Mechanical Ventilator Mechanical Ventilator 03/04/19 16:00 40 03/04/19 16:00 71 03/04/19 16:00 24 Mechanical Ventilator 40 03/04/19 15:30 71 21 128/44 (72) 97 03/04/19 15:08 67 24 40 03/04/19 15:00 69 24 150/58 (88) 98 03/04/19 15:00 24 Mechanical Ventilator 40 03/04/19 14:30 71 17 133/50 (77) 98 03/04/19 14:28 133/50 03/04/19 14:27 133/50 03/04/19 14:00 84 17 133/50 (77) 98 03/04/19 14:00 21 Mechanical Ventilator 03/04/19 13:30 72 25 135/65 (88) 98 03/04/19 13:12 74 24 100 Mechanical Ventilator 40 03/04/19 13:12 64 24 40 03/04/19 13:04 100.2 03/04/19 13:00 68 24 155/85 (108) 97 03/04/19 13:00 24 Mechanical Ventilator 40 03/04/19 13:00 67 24 98 Mechanical Ventilator 40 03/04/19 12:30 79 23 153/78 (103) 98 03/04/19 12:00 Mechanical Ventilator Mechanical Ventilator 03/04/19 12:00 100.5 74 24 157/66 (96) 98 03/04/19 12:00 40 03/04/19 12:00 24 Mechanical Ventilator 30 03/04/19 12:00 79 03/04/19 12:00 40 Intake and Output 03/04/19 03/05/19 18:59 06:59 Intake Total 748 ml 395 ml Output Total 2340 ml 1795 ml Balance -1592 ml -1400 ml Free Water 50 ml IV Total 655 ml 395 ml Tube Feeding 43 ml 0 ml Output Urine Total 2290 ml 1695 ml Stool Total 50 ml 100 ml Laboratory Tests Test 03/05/19 04:45 White Blood Count 3.4 K/UL (4.8-10.8) L Red Blood Count 2.84 M/UL (4.70-6.10) L Hemoglobin 8.2 G/DL (14.2-18.0) L Hematocrit 25.0 % (42.0-52.0) L Mean Corpuscular Volume 88 FL (80-99) Mean Corpuscular Hemoglobin 28.9 PG (27.0-31.0) Mean Corpuscular Hemoglobin Concent 32.9 G/DL (32.0-36.0) Red Cell Distribution Width 16.8 % (11.6-14.8) H Platelet Count 96 K/UL (150-450) L Mean Platelet Volume 6.4 FL (6.5-10.1) L Neutrophils (%) (Auto) % (45.0-75.0) Lymphocytes (%) (Auto) % (20.0-45.0) Monocytes (%) (Auto) % (1.0-10.0) Eosinophils (%) (Auto) % (0.0-3.0) Basophils (%) (Auto) % (0.0-2.0) Differential Total Cells Counted 100 Neutrophils % (Manual) 60 % (45-75) Lymphocytes % (Manual) 22 % (20-45) Monocytes % (Manual) 15 % (1-10) H Eosinophils % (Manual) 2 % (0-3) Basophils % (Manual) 1 % (0-2) Band Neutrophils 0 % (0-8) Platelet Estimate Decreased L Platelet Morphology Normal Hypochromasia 2+ Anisocytosis 1+ Sodium Level 140 MMOL/L (136-145) Potassium Level 3.4 MMOL/L (3.5-5.1) L Chloride Level 103 MMOL/L (98-107) Carbon Dioxide Level 29 MMOL/L (21-32) Anion Gap 8 mmol/L (5-15) Blood Urea Nitrogen 32 mg/dL (7-18) H Creatinine 1.6 MG/DL (0.55-1.30) H Estimat Glomerular Filtration Rate 44.5 mL/min (>60) Glucose Level 69 MG/DL (74-106) #L Uric Acid 4.6 MG/DL (2.6-7.2) Calcium Level 9.0 MG/DL (8.5-10.1) Phosphorus Level 2.2 MG/DL (2.5-4.9) L Magnesium Level 1.3 MG/DL (1.8-2.4) L Total Bilirubin 0.6 MG/DL (0.2-1.0) Aspartate Amino Transf (AST/SGOT) 58 U/L (15-37) H Alanine Aminotransferase (ALT/SGPT) 76 U/L (12-78) Alkaline Phosphatase 108 U/L (46-116) C-Reactive Protein, Quantitative 9.1 mg/dL (0.00-0.90) H Pro-B-Type Natriuretic Peptide 15041 pg/mL (0-125) H Total Protein 5.2 G/DL (6.4-8.2) L Albumin 2.1 G/DL (3.4-5.0) L Globulin 3.1 g/dL Albumin/Globulin Ratio 0.7 (1.0-2.7) L Random Vancomycin Level 11.4 ug/mL Height (Feet): 6 Height (Inches): 0.00 Weight (Pounds): 266 General Appearance: lethargic Cardiovascular: normal rate Abdominal Exam: soft Kg Ricketts MD Mar 05, 2019 11:55
[2019-03-05] MEDS ORDERED: Lidocaine 1% MPF 10mg/ml 5ml ONE (12:00)
[2019-03-05] MEDS ORDERED: Propofol 200mg/20ml IV ONE (12:00)
--- NOTE | 2019-03-05 12:06 | Surgery Progress Note ---
Surgery Progress Note Subjective Procedure Performed tracheostomy Additional Comments no acute events comfortable stable labs improved more alert but not responsive Objective Last 24 Hour Vital Signs Date Time Temp Pulse Resp B/P (MAP) Pulse Ox O2 Delivery O2 Flow Rate FiO2 03/05/19 11:00 74 23 143/54 (83) 100 03/05/19 11:00 74 25 40 03/05/19 10:00 73 24 140/55 (83) 100 03/05/19 09:30 70 24 133/53 (79) 100 03/05/19 09:01 73 24 40 03/05/19 09:00 74 23 135/55 (81) 99 03/05/19 08:30 84 24 141/59 (86) 99 03/05/19 08:07 86 153/59 03/05/19 08:07 86 153/59 03/05/19 08:00 92 03/05/19 08:00 40 03/05/19 08:00 99.2 96 23 151/76 (101) 100 03/05/19 08:00 Mechanical Ventilator Mechanical Ventilator 03/05/19 07:00 22 Mechanical Ventilator 40 03/05/19 07:00 86 25 100 Mechanical Ventilator 40 03/05/19 07:00 90 21 153/59 (90) 100 03/05/19 06:50 85 26 100 Mechanical Ventilator 40 03/05/19 06:49 86 25 40 03/05/19 06:30 88 20 157/64 (95) 100 03/05/19 06:00 24 Mechanical Ventilator 40 03/05/19 06:00 86 23 156/61 (92) 100 03/05/19 05:34 160/128 03/05/19 05:33 160/128 03/05/19 05:30 88 23 162/64 (96) 100 03/05/19 05:24 86 25 40 03/05/19 05:00 83 23 160/128 (139) 100 03/05/19 05:00 24 Mechanical Ventilator 40 03/05/19 04:30 84 22 160/58 (92) 100 03/05/19 04:00 83 03/05/19 04:00 99.0 94 25 109/57 (74) 99 03/05/19 04:00 Mechanical Ventilator Mechanical Ventilator 03/05/19 04:00 24 Mechanical Ventilator 40 03/05/19 04:00 40 03/05/19 03:30 82 22 150/52 (84) 98 03/05/19 03:07 76 22 40 03/05/19 03:00 21 Mechanical Ventilator 40 03/05/19 03:00 95 24 154/61 (92) 98 03/05/19 02:30 78 20 147/53 (84) 100 03/05/19 02:00 22 Mechanical Ventilator 40 03/05/19 02:00 79 14 148/54 (85) 99 03/05/19 01:30 84 21 145/59 (87) 99 03/05/19 01:13 77 25 99 Mechanical Ventilator 40 03/05/19 01:11 78 24 40 03/05/19 01:00 77 20 148/98 (115) 99 03/05/19 01:00 22 Mechanical Ventilator 40 03/05/19 01:00 74 25 97 Mechanical Ventilator 40 03/05/19 00:30 81 17 143/56 (85) 100 03/05/19 00:00 98.7 76 23 147/53 (84) 100 03/05/19 00:00 84 03/05/19 00:00 40 03/05/19 00:00 Mechanical Ventilator Mechanical Ventilator 03/05/19 00:00 22 Mechanical Ventilator 40 03/04/19 23:30 75 24 40 03/04/19 23:30 73 24 140/52 (81) 100 03/04/19 23:01 71 21 142/58 (86) 96 03/04/19 23:00 24 Mechanical Ventilator 40 03/04/19 22:48 24 Mechanical Ventilator 40 03/04/19 22:30 71 18 142/56 (84) 99 03/04/19 22:00 18 Mechanical Ventilator 40 03/04/19 22:00 75 14 139/49 (79) 98 03/04/19 21:54 141/53 03/04/19 21:54 141/53 03/04/19 21:30 82 33 40 03/04/19 21:30 84 23 141/53 (82) 98 03/04/19 21:00 23 Mechanical Ventilator 40 03/04/19 21:00 89 23 155/57 (89) 100 03/04/19 20:57 80 138/55 03/04/19 20:30 80 24 138/55 (82) 99 03/04/19 20:00 80 03/04/19 20:00 Mechanical Ventilator Mechanical Ventilator 03/04/19 20:00 21 Mechanical Ventilator 40 03/04/19 20:00 40 03/04/19 20:00 77 23 129/52 (77) 99 03/04/19 19:30 99.2 73 21 120/87 (98) 100 03/04/19 19:22 75 24 40 03/04/19 19:20 76 24 100 Mechanical Ventilator 40 03/04/19 19:10 69 24 99 Mechanical Ventilator 40 03/04/19 19:00 24 Mechanical Ventilator 03/04/19 19:00 69 22 118/63 (81) 99 03/04/19 18:30 71 24 133/59 (83) 99 03/04/19 18:00 23 Mechanical Ventilator 40 03/04/19 18:00 73 24 136/72 (93) 100 03/04/19 17:30 83 20 154/70 (98) 100 03/04/19 17:21 72 24 40 03/04/19 17:00 71 18 154/70 (98) 100 03/04/19 17:00 15 Mechanical Ventilator 03/04/19 16:30 74 24 144/47 (79) 100 03/04/19 16:00 98.7 69 24 150/52 (84) 99 03/04/19 16:00 Mechanical Ventilator Mechanical Ventilator 03/04/19 16:00 40 03/04/19 16:00 71 03/04/19 16:00 24 Mechanical Ventilator 40 03/04/19 15:30 71 21 128/44 (72) 97 03/04/19 15:08 67 24 40 03/04/19 15:00 69 24 150/58 (88) 98 03/04/19 15:00 24 Mechanical Ventilator 40 03/04/19 14:30 71 17 133/50 (77) 98 03/04/19 14:28 133/50 03/04/19 14:27 133/50 03/04/19 14:00 84 17 133/50 (77) 98 03/04/19 14:00 21 Mechanical Ventilator 03/04/19 13:30 72 25 135/65 (88) 98 03/04/19 13:12 74 24 100 Mechanical Ventilator 40 03/04/19 13:12 64 24 40 03/04/19 13:04 100.2 03/04/19 13:00 68 24 155/85 (108) 97 03/04/19 13:00 24 Mechanical Ventilator 40 03/04/19 13:00 67 24 98 Mechanical Ventilator 40 03/04/19 12:30 79 23 153/78 (103) 98 I&O Intake and Output 03/04/19 03/05/19 19:00 07:00 Intake Total 755 ml 340 ml Output Total 2490 ml 1545 ml Balance -1735 ml -1205 ml Free Water 50 ml IV Total 705 ml 340 ml Tube Feeding 0 ml 0 ml Output Urine Total 2440 ml 1445 ml Stool Total 50 ml 100 ml Cardiovascular: RSR Respiratory: clear Abdomen: soft, present bowel sounds, non-distended Extremities: no tenderness, no cyanosis, other Laboratory Tests Test 03/05/19 04:45 White Blood Count 3.4 K/UL (4.8-10.8) L Red Blood Count 2.84 M/UL (4.70-6.10) L Hemoglobin 8.2 G/DL (14.2-18.0) L Hematocrit 25.0 % (42.0-52.0) L Mean Corpuscular Volume 88 FL (80-99) Mean Corpuscular Hemoglobin 28.9 PG (27.0-31.0) Mean Corpuscular Hemoglobin Concent 32.9 G/DL (32.0-36.0) Red Cell Distribution Width 16.8 % (11.6-14.8) H Platelet Count 96 K/UL (150-450) L Mean Platelet Volume 6.4 FL (6.5-10.1) L Neutrophils (%) (Auto) % (45.0-75.0) Lymphocytes (%) (Auto) % (20.0-45.0) Monocytes (%) (Auto) % (1.0-10.0) Eosinophils (%) (Auto) % (0.0-3.0) Basophils (%) (Auto) % (0.0-2.0) Differential Total Cells Counted 100 Neutrophils % (Manual) 60 % (45-75) Lymphocytes % (Manual) 22 % (20-45) Monocytes % (Manual) 15 % (1-10) H Eosinophils % (Manual) 2 % (0-3) Basophils % (Manual) 1 % (0-2) Band Neutrophils 0 % (0-8) Platelet Estimate Decreased L Platelet Morphology Normal Hypochromasia 2+ Anisocytosis 1+ Sodium Level 140 MMOL/L (136-145) Potassium Level 3.4 MMOL/L (3.5-5.1) L Chloride Level 103 MMOL/L (98-107) Carbon Dioxide Level 29 MMOL/L (21-32) Anion Gap 8 mmol/L (5-15) Blood Urea Nitrogen 32 mg/dL (7-18) H Creatinine 1.6 MG/DL (0.55-1.30) H Estimat Glomerular Filtration Rate 44.5 mL/min (>60) Glucose Level 69 MG/DL (74-106) #L Uric Acid 4.6 MG/DL (2.6-7.2) Calcium Level 9.0 MG/DL (8.5-10.1) Phosphorus Level 2.2 MG/DL (2.5-4.9) L Magnesium Level 1.3 MG/DL (1.8-2.4) L Total Bilirubin 0.6 MG/DL (0.2-1.0) Aspartate Amino Transf (AST/SGOT) 58 U/L (15-37) H Alanine Aminotransferase (ALT/SGPT) 76 U/L (12-78) Alkaline Phosphatase 108 U/L (46-116) C-Reactive Protein, Quantitative 9.1 mg/dL (0.00-0.90) H Pro-B-Type Natriuretic Peptide 38752 pg/mL (0-125) H Total Protein 5.2 G/DL (6.4-8.2) L Albumin 2.1 G/DL (3.4-5.0) L Globulin 3.1 g/dL Albumin/Globulin Ratio 0.7 (1.0-2.7) L Random Vancomycin Level 11.4 ug/mL Plan Problems: (1) Hypoxia Assessment & Plan: Extensive bilateral upper lobe infiltrates likely inflammatory/infectious. Correlate clinically. Tuberculosis is not excludable. Bilateral pleural effusions. Endotracheal tube and nasogastric tube in good position Atherosclerotic vascular disease (2) Respiratory distress Assessment & Plan: on vent support s/p trach wean vent as tolerated (3) Sepsis Assessment & Plan: Sepsis with tachycardia, leukocytosis - resolved, abnormal labs, respiratory distress on vent Cont IV abx CXR noted appreciate ICU team care abnormal lft's US noted will cont to follow with recs trend labs Rx as written Moiz Costa Mar 05, 2019 12:06
--- NOTE | 2019-03-05 12:18 | Anethesia Preoperative Eval ---
Anesthesia Pre-op PMH/ROS General Date of Evaluation: Mar 05, 2019 Time of Evaluation: 12:16 Anesthesiologist: juan ASA Score: ASA 4 Mallampati Score Class I : Soft palate, uvula, fauces, pillars visible Class II: Soft palate, uvula, fauces visible Class III: Soft palate, base of uvula visible Class IV: Only hard plate visible Mallampati Classification: Class III - Orally intubated Surgeon: eliseo Diagnosis: failure to thrive Surgical Procedure: egd/peg Anesthesia History: none Family History: no anesthesia problems Allergies: Coded Allergies: No Known Allergies (Unverified , 02/05/13) Medications: see eMAR Patient NPO?: Yes NPO Date: Mar 02, 2019 NPO Time: 0000 Past Medical History Cardiovascular: Reports: HTN Neurologic/Psychiatric: Reports: CVA, depression/anxiety Endocrine: Reports: DM Hematology/Immune: Reports: other - hiv Anesthesia Pre-op Phys. Exam Physician Exam Last Vital Signs Date Time Temp Pulse Resp B/P (MAP) Pulse Ox O2 Delivery O2 Flow Rate FiO2 03/05/19 11:00 74 23 143/54 (83) 100 03/05/19 11:00 40 03/05/19 08:00 99.2 03/05/19 08:00 Mechanical Ventilator Mechanical Ventilator 02/26/19 12:53 75.0 Constitutional: NAD Neurologic: other - cva Cardiovascular: RRR Respiratory: other - mechanically ventilated Gastrointestinal: S/NT/ND Airway Exam Mallampati Score: Class II MO: limited Neck: tracheostomy TMD: 2fb Anesthesia Pre-op A/P Labs Hematology Test 03/05/19 04:45 White Blood Count 3.4 K/UL (4.8-10.8) L Red Blood Count 2.84 M/UL (4.70-6.10) L Hemoglobin 8.2 G/DL (14.2-18.0) L Hematocrit 25.0 % (42.0-52.0) L Mean Corpuscular Volume 88 FL (80-99) Mean Corpuscular Hemoglobin 28.9 PG (27.0-31.0) Mean Corpuscular Hemoglobin Concent 32.9 G/DL (32.0-36.0) Red Cell Distribution Width 16.8 % (11.6-14.8) H Platelet Count 96 K/UL (150-450) L Mean Platelet Volume 6.4 FL (6.5-10.1) L Neutrophils (%) (Auto) % (45.0-75.0) Lymphocytes (%) (Auto) % (20.0-45.0) Monocytes (%) (Auto) % (1.0-10.0) Eosinophils (%) (Auto) % (0.0-3.0) Basophils (%) (Auto) % (0.0-2.0) Differential Total Cells Counted 100 Neutrophils % (Manual) 60 % (45-75) Lymphocytes % (Manual) 22 % (20-45) Monocytes % (Manual) 15 % (1-10) H Eosinophils % (Manual) 2 % (0-3) Basophils % (Manual) 1 % (0-2) Band Neutrophils 0 % (0-8) Platelet Estimate Decreased L Platelet Morphology Normal Hypochromasia 2+ Anisocytosis 1+ Chemistry Test 03/05/19 04:45 Sodium Level 140 MMOL/L (136-145) Potassium Level 3.4 MMOL/L (3.5-5.1) L Chloride Level 103 MMOL/L (98-107) Carbon Dioxide Level 29 MMOL/L (21-32) Anion Gap 8 mmol/L (5-15) Blood Urea Nitrogen 32 mg/dL (7-18) H Creatinine 1.6 MG/DL (0.55-1.30) H Estimat Glomerular Filtration Rate 44.5 mL/min (>60) Glucose Level 69 MG/DL (74-106) #L Uric Acid 4.6 MG/DL (2.6-7.2) Calcium Level 9.0 MG/DL (8.5-10.1) Phosphorus Level 2.2 MG/DL (2.5-4.9) L Magnesium Level 1.3 MG/DL (1.8-2.4) L Total Bilirubin 0.6 MG/DL (0.2-1.0) Aspartate Amino Transf (AST/SGOT) 58 U/L (15-37) H Alanine Aminotransferase (ALT/SGPT) 76 U/L (12-78) Alkaline Phosphatase 108 U/L (46-116) C-Reactive Protein, Quantitative 9.1 mg/dL (0.00-0.90) H Pro-B-Type Natriuretic Peptide 04161 pg/mL (0-125) H Total Protein 5.2 G/DL (6.4-8.2) L Albumin 2.1 G/DL (3.4-5.0) L Globulin 3.1 g/dL Albumin/Globulin Ratio 0.7 (1.0-2.7) L Risk Assessment & Plan Assessment: [email or web address] Plan: mac Status Change Before Surgery: No Pre-Antibiotics Drug: on vancomycin around the clock Glo Rutherford MD Mar 05, 2019 12:18
--- NOTE | 2019-03-05 12:18 | Endoscopy Procedure Note ---
Endoscopy Procedure Note General Indication for Procedure: dysphagia Procedures Performed: EGD, PEG Operative Findings/Diagnosis: same Specimen: none Pt Tolerated Procedure Well: Yes Estimated Blood Loss: none Anesthesia Anesthesiologist: justin beebe Anesthesia: MAC Inserted Devices Implant(s) used?: No GI Core Measures 50 yrs or older w/o bx or poly: Not Applicable 10yrs. F/U recommended: Not Applicable Kg Ricketts MD Mar 05, 2019 12:18
[2019-03-05] MEDS ORDERED: Atropine Inj 1mg/10ml Syr IV PRN (12:30)
[2019-03-05] MEDS ORDERED: DiphenhydrAMINE 50mg/ml Inj IVP PRN (12:30)
[2019-03-05] MEDS ORDERED: Midazolam 2mg/2ml Inj IVP PRN (12:30)
--- NOTE | 2019-03-05 12:30 | NUR ---
NURSE NOTES: Bedside PEG placement was done by DR Ricketts, accompanies by REPORT WRITER and Dr Hermosillo. Pt tolerated well. VS stable, while pt now continues to be maintained on Fentanyl drip at 300mcg/hr to maintain RASS score of -2 light sedation.
--- NOTE | 2019-03-05 12:59 | NUR ---
RESPIRATORY NOTE: Dr. Meredith ordered to wean the pt daily regardless if pt is sedated or not. Attempted to wean pt but RN Simin inform me that pt just got PEG placement done, and he is in a lots of pain right now. I told her to call me when she fell pt is better and ready to wean. RT student Celestino at bed side. Will continue to monitor pt in the mean time.
--- NOTE | 2019-03-05 13:01 | Immediate Post-Op Evaluation ---
Immediate Post-Op Evalulation Immediate Post-Op Evalulation Procedure: edg/peg Date of Evaluation: Mar 05, 2019 Time of Evaluation: 13:00 IV Fluids: 30ml 0.9ns Blood Products: none Estimated Blood Loss: negligible Blood Pressure Systolic: 128 Blood Pressure Diastolic: 71 Pulse Rate: 77 Respiratory Rate: 24 O2 Sat by Pulse Oximetry: 100 Temperature (Fahrenheit): 99.2 Pain Score (1-10): 0 Nausea: No Vomiting: No Complications none Patient Status: awake, reacts, patent, ventilated Hydration Status: adequate Drug: on vancomycin around the clock Glo Rutherford MD Mar 05, 2019 13:01
--- NOTE | 2019-03-05 13:02 | 48 Hour Post Anesthesia Eval ---
Post Anesthesia Evaluation Procedure: edg/peg Date of Evaluation: Mar 05, 2019 Time of Evaluation: 13:02 Blood Pressure Systolic: 140 0: 49 Pulse Rate: 77 Respiratory Rate: 21 Temperature (Fahrenheit): 99.2 O2 Sat by Pulse Oximetry: 100 Airway: patent Nausea: No Vomiting: No Pain Intensity: 0 Hydration Status: adequate Cardiopulmonary Status: stable Mental Status/LOC: patient returned to baseline Post-Anesthesia Complications: none Follow-up care needed: N/A Glo Rutherford MD Mar 05, 2019 13:02
[2019-03-05] MEDS: TENOFOVIR DISOPROXIL FUMARATE 300 MG ORAL SCH (13:08)
--- NOTE | 2019-03-05 14:00 | NUR ---
NURSE NOTES: Abdominal dressing for GT site has been changed. Pt cleaned and repositioned. VS stable while -2 light sedation of Fentanyl drip 300mcg/hour. Oral care done.
--- NOTE | 2019-03-05 16:00 | NUR ---
NURSE NOTES: GT feeding was started as ordered with Glucerna 1.5. VS stable. Pt has been repositioned, asleep in no apparent distress.
--- NOTE | 2019-03-05 17:00 | NUR ---
NURSE NOTES: Pt was seen by Dr Francois. No new orders at this time. VS stable while on Fentanyl drip at 300mcg/hour to maintain RASS score of -2 light sedation.
--- NOTE | 2019-03-05 18:12 | Cardiac Electrophysiology PN ---
Assessment/Plan Assessment/Plan 1. Non-ST elevation myocardial infarction with peak troponin of more than 10, down to 3.[address]-T wave abnormalities. Continue Lipitor, Imdur and metoprolol Not a candidate for Cardiac catheterization 2. Hypertension. Metoprolol 100 bid, Isordil 20 q6 , Clonidine 0.1 bid, Lasix 40 iv daily, Metolazone 5, Norvasc 10 daily and hydralazine 50 q 8 hr On Clonidine 0.2 q 8hrs 3. Respiratory failure due to Multilobar Pneumonia. Extubated 02/19/19. Reintubated 02/20/19 S/P Tracheostomy 03/02/19 4. Hyperlipidemia. On Lipitor. 5. Human immunodeficiency virus. On anti-retroviral therapy with undetectable viral load. 6. ARF Cr 3 7. Bleeding from ETT and NG tube. S/P PRBC. Off Aspirin and Lovenox No further bleeding 8. Dysphagia. S/P PEG today DW RN Subjective Subjective In ICU on the vent via Tracheostomy. Had PEG today Objective Last 24 Hour Vital Signs Date Time Temp Pulse Resp B/P (MAP) Pulse Ox O2 Delivery O2 Flow Rate FiO2 03/05/19 17:30 79 23 147/61 (89) 100 03/05/19 17:00 99.5 80 24 131/53 (79) 100 03/05/19 17:00 72 24 40 03/05/19 16:30 74 20 142/58 (86) 99 03/05/19 16:00 70 03/05/19 16:00 Mechanical Ventilator Mechanical Ventilator 03/05/19 16:00 78 22 147/59 (88) 99 03/05/19 16:00 40 03/05/19 15:30 71 22 136/48 (77) 98 03/05/19 15:01 74 24 40 03/05/19 15:00 73 19 138/48 (78) 100 03/05/19 14:30 71 21 127/48 (74) 99 03/05/19 14:00 73 24 131/48 (75) 98 03/05/19 13:30 76 24 137/54 (81) 98 03/05/19 13:10 82 24 100 Mechanical Ventilator 40 03/05/19 13:10 140/49 03/05/19 13:08 140/49 03/05/19 13:02 77 21 100 03/05/19 13:01 77 24 100 03/05/19 13:00 76 22 141/49 (79) 99 03/05/19 12:59 82 24 40 03/05/19 12:58 82 24 98 Mechanical Ventilator 40 03/05/19 12:30 76 22 149/53 (85) 100 03/05/19 12:00 40 03/05/19 12:00 99.0 78 25 139/56 (83) 100 03/05/19 12:00 72 03/05/19 12:00 Mechanical Ventilator Mechanical Ventilator 03/05/19 11:00 74 23 143/54 (83) 100 03/05/19 11:00 74 25 40 03/05/19 10:00 73 24 140/55 (83) 100 03/05/19 09:30 70 24 133/53 (79) 100 03/05/19 09:01 73 24 40 03/05/19 09:00 74 23 135/55 (81) 99 03/05/19 08:30 84 24 141/59 (86) 99 03/05/19 08:07 86 153/59 03/05/19 08:07 86 153/59 03/05/19 08:00 92 03/05/19 08:00 40 03/05/19 08:00 99.2 96 23 151/76 (101) 100 03/05/19 08:00 Mechanical Ventilator Mechanical Ventilator 03/05/19 07:00 22 Mechanical Ventilator 40 03/05/19 07:00 86 25 100 Mechanical Ventilator 40 03/05/19 07:00 90 21 153/59 (90) 100 03/05/19 06:50 85 26 100 Mechanical Ventilator 40 03/05/19 06:49 86 25 40 03/05/19 06:30 88 20 157/64 (95) 100 03/05/19 06:00 24 Mechanical Ventilator 40 03/05/19 06:00 86 23 156/61 (92) 100 03/05/19 05:34 160/128 03/05/19 05:33 160/128 03/05/19 05:30 88 23 162/64 (96) 100 03/05/19 05:24 86 25 40 03/05/19 05:00 83 23 160/128 (139) 100 03/05/19 05:00 24 Mechanical Ventilator 40 03/05/19 04:30 84 22 160/58 (92) 100 03/05/19 04:00 83 03/05/19 04:00 99.0 94 25 109/57 (74) 99 03/05/19 04:00 Mechanical Ventilator Mechanical Ventilator 03/05/19 04:00 24 Mechanical Ventilator 40 03/05/19 04:00 40 03/05/19 03:30 82 22 150/52 (84) 98 03/05/19 03:07 76 22 40 03/05/19 03:00 21 Mechanical Ventilator 40 03/05/19 03:00 95 24 154/61 (92) 98 03/05/19 02:30 78 20 147/53 (84) 100 03/05/19 02:00 22 Mechanical Ventilator 40 03/05/19 02:00 79 14 148/54 (85) 99 03/05/19 01:30 84 21 145/59 (87) 99 03/05/19 01:13 77 25 99 Mechanical Ventilator 40 03/05/19 01:11 78 24 40 03/05/19 01:00 77 20 148/98 (115) 99 03/05/19 01:00 22 Mechanical Ventilator 40 03/05/19 01:00 74 25 97 Mechanical Ventilator 40 03/05/19 00:30 81 17 143/56 (85) 100 03/05/19 00:00 98.7 76 23 147/53 (84) 100 03/05/19 00:00 84 03/05/19 00:00 40 03/05/19 00:00 Mechanical Ventilator Mechanical Ventilator 03/05/19 00:00 22 Mechanical Ventilator 40 03/04/19 23:30 75 24 40 03/04/19 23:30 73 24 140/52 (81) 100 03/04/19 23:01 71 21 142/58 (86) 96 03/04/19 23:00 24 Mechanical Ventilator 40 03/04/19 22:48 24 Mechanical Ventilator 40 03/04/19 22:30 71 18 142/56 (84) 99 03/04/19 22:00 18 Mechanical Ventilator 40 03/04/19 22:00 75 14 139/49 (79) 98 03/04/19 21:54 141/53 03/04/19 21:54 141/53 03/04/19 21:30 82 33 40 03/04/19 21:30 84 23 141/53 (82) 98 03/04/19 21:00 23 Mechanical Ventilator 40 03/04/19 21:00 89 23 155/57 (89) 100 03/04/19 20:57 80 138/55 03/04/19 20:30 80 24 138/55 (82) 99 03/04/19 20:00 80 03/04/19 20:00 Mechanical Ventilator Mechanical Ventilator 03/04/19 20:00 21 Mechanical Ventilator 40 03/04/19 20:00 40 03/04/19 20:00 77 23 129/52 (77) 99 03/04/19 19:30 99.2 73 21 120/87 (98) 100 03/04/19 19:22 75 24 40 03/04/19 19:20 76 24 100 Mechanical Ventilator 40 03/04/19 19:10 69 24 99 Mechanical Ventilator 40 03/04/19 19:00 24 Mechanical Ventilator 03/04/19 19:00 69 22 118/63 (81) 99 03/04/19 18:30 71 24 133/59 (83) 99 Intake and Output 03/04/19 03/05/19 18:59 06:59 Intake Total 748 ml 395 ml Output Total 2340 ml 1795 ml Balance -1592 ml -1400 ml Free Water 50 ml IV Total 655 ml 395 ml Tube Feeding 43 ml 0 ml Output Urine Total 2290 ml 1695 ml Stool Total 50 ml 100 ml Laboratory Tests Test 03/05/19 04:45 White Blood Count 3.4 K/UL (4.8-10.8) L Red Blood Count 2.84 M/UL (4.70-6.10) L Hemoglobin 8.2 G/DL (14.2-18.0) L Hematocrit 25.0 % (42.0-52.0) L Mean Corpuscular Volume 88 FL (80-99) Mean Corpuscular Hemoglobin 28.9 PG (27.0-31.0) Mean Corpuscular Hemoglobin Concent 32.9 G/DL (32.0-36.0) Red Cell Distribution Width 16.8 % (11.6-14.8) H Platelet Count 96 K/UL (150-450) L Mean Platelet Volume 6.4 FL (6.5-10.1) L Neutrophils (%) (Auto) % (45.0-75.0) Lymphocytes (%) (Auto) % (20.0-45.0) Monocytes (%) (Auto) % (1.0-10.0) Eosinophils (%) (Auto) % (0.0-3.0) Basophils (%) (Auto) % (0.0-2.0) Differential Total Cells Counted 100 Neutrophils % (Manual) 60 % (45-75) Lymphocytes % (Manual) 22 % (20-45) Monocytes % (Manual) 15 % (1-10) H Eosinophils % (Manual) 2 % (0-3) Basophils % (Manual) 1 % (0-2) Band Neutrophils 0 % (0-8) Platelet Estimate Decreased L Platelet Morphology Normal Hypochromasia 2+ Anisocytosis 1+ Sodium Level 140 MMOL/L (136-145) Potassium Level 3.4 MMOL/L (3.5-5.1) L Chloride Level 103 MMOL/L (98-107) Carbon Dioxide Level 29 MMOL/L (21-32) Anion Gap 8 mmol/L (5-15) Blood Urea Nitrogen 32 mg/dL (7-18) H Creatinine 1.6 MG/DL (0.55-1.30) H Estimat Glomerular Filtration Rate 44.5 mL/min (>60) Glucose Level 69 MG/DL (74-106) #L Uric Acid 4.6 MG/DL (2.6-7.2) Calcium Level 9.0 MG/DL (8.5-10.1) Phosphorus Level 2.2 MG/DL (2.5-4.9) L Magnesium Level 1.3 MG/DL (1.8-2.4) L Total Bilirubin 0.6 MG/DL (0.2-1.0) Aspartate Amino Transf (AST/SGOT) 58 U/L (15-37) H Alanine Aminotransferase (ALT/SGPT) 76 U/L (12-78) Alkaline Phosphatase 108 U/L (46-116) C-Reactive Protein, Quantitative 9.1 mg/dL (0.00-0.90) H Pro-B-Type Natriuretic Peptide 93875 pg/mL (0-125) H Total Protein 5.2 G/DL (6.4-8.2) L Albumin 2.1 G/DL (3.4-5.0) L Globulin 3.1 g/dL Albumin/Globulin Ratio 0.7 (1.0-2.7) L Random Vancomycin Level 11.4 ug/mL Microbiology Date/Time Source Procedure Growth Status 03/03/19 12:40 Blood Blood Culture - Preliminary NO GROWTH AFTER 24 HOURS Resulted 03/03/19 11:00 Blood Blood Culture - Preliminary NO GROWTH AFTER 24 HOURS Resulted 03/03/19 18:00 Indwelling Cath Urine Culture - Preliminary NO GROWTH AFTER 24 HOURS Resulted Objective HEAD AND NECK: No JVD. S/P tracheostomy with NG tube LUNGS: Coarse rhonchi. CARDIOVASCULAR: Regular S1 and S2 with no gallop or murmur. ABDOMEN: Soft.PEG in place EXTREMITIES: 1 plus pitting edema. Murray Francois MD Mar 05, 2019 18:12
--- NOTE | 2019-03-05 18:15 | NUR ---
RESPIRATORY NOTE: Haven't wean pt today because pt is in pain after the PEG placement done. Will endorse to the next RT about Dr. Meredith's weaning order. Pt is stable in condition. No resp distress noted.
--- NOTE | 2019-03-05 19:00 | Procedure Note ---
DATE OF PROCEDURE: 03/05/2019 SURGEON: Kg Ricketts M.D. PROCEDURE: Upper endoscopy with PEG placement. ANESTHESIA: Per Dr. Tabares. INSTRUMENT: Olympus adult flexible upper endoscope. INDICATIONS: Failure to thrive, dysphagia. The procedure, risks, benefits, and possible consequences, including hemorrhage, aspiration, perforation and infection, and alternative treatments, were explained to the patient/legal guardian by Dr. Kg Ricketts and the patient/legal guardian understood and accepted these risks. DESCRIPTION OF PROCEDURE: After informed consent was obtained and the patient was adequately sedated, Olympus endoscope was advanced from mouth into the second portion of duodenum and retroflexion was performed in the stomach. Then under endoscopic guidance under sterile condition, a 20-Kinyarwanda pull type of G-tube was successfully placed in the epigastric area. The distance from the tip of the tube to skin was about 2.5 cm in size. The patient tolerated the procedure very well without any complication. SUMMARY OF FINDINGS: Status post successful PEG placement. RECOMMENDATIONS: Abdominal binder. Elevate the head of bed at all times. G-tube flush. G-tube care. Start tube feeding later today. The patient currently on antibiotics, we will continue. Kg Ricketts M.D. DR: Deb JOB#: [id number] CC:
[2019-03-05] MEDS: Dyna-Hex 2% Top Sol 2oz TOPIC SCH (19:45)
--- NOTE | 2019-03-05 19:49 | NUR ---
CASE MANAGEMENT: REVIEW SI: BILATERAL INFILTRATES . RESP FAILURE . ARDS . FAILURE TO THRIVE EDG/PEG 03/05 TRACHEOSTOMY 03/02 LEFT FEMORAL TEMP HD CATH INSERTION 02/13 FOB & BAL 02/09 T 99.5 HR 80 RR 24 BP 131/53 SAT 99% MECH VENT FIO2 40 WBC 3.4 H/H 8.2/25.0 K 3.4 BUN 32 CR 1.6 IS: ALBUTEROL HHN Q6HR LASIX IV QD FENTANYL GTT DIFLUCAN IV Q24HR VANCO IV Q24HR GT FEEDING ICU STATUS DCP: PATIENT IS FROM HOME
--- NOTE | 2019-03-05 19:57 | NUR ---
HAND-OFF: Report given to Munir ZARATE. Endorsed plan of care. VS stable.
--- NOTE | 2019-03-05 20:02 | NUR ---
NURSE NOTES: Recvd.on a Vent.TRACHE.See Settings.Lungs Few scatt.Rales.Diminished BS at Bases.P.Ox.98-100%.Suctioned Tk.beige sec.NS Lavaged.S/P PEG.Feeding in progress.Res.-0.Water Flushed.Pos.chg.Confused,disoriented.Re-Oriented,reassured.Bila.soft wrist restraints on prev.self-injury.PICC (R) arm Fentanyl drip inf.for sedation.F/cath patent diuresis well.
[2019-03-05] MEDS: Maxitrol Opth Oint 3.5gm BOTH EYES SCH (20:58)
[2019-03-05] MEDS: Miralax 17gm pkt ORAL SCH (20:59)
--- NOTE | 2019-03-05 21:00 | NUR ---
NURSE NOTES: 30cc left on fentanyl drip unable to chart on IV spreadsheet for 1999 and 2099.
--- NOTE | 2019-03-05 22:10 | NUR ---
NURSE NOTES: HS care prov.Pos.chg.Kept comfortable.Suctioned.Due meds admin.GT-Feeding cont.NO Distress.
[2019-03-06] VITALS (48 sets, daily range): BP systolic 115–159; BP diastolic 45–116
--- NOTE | 2019-03-06 00:10 | NUR ---
NURSE NOTES: Repositioned,Suctioned.Fentanyl drip at same rate,comfortable.See V/S.Scope rhythm same.Cont.Plan of care.
[2019-03-06] MEDS: Albuterol/Ipratropium 3ml neb HHN SCH ×4 (01:09→19:03)
[2019-03-06] MEDS: Metoclopramide 10mg/2ml Inj IVP SCH ×3 (01:51→18:01)
--- NOTE | 2019-03-06 02:10 | NUR ---
NURSE NOTES: Pos. chg.Suctioned.NS lavaged.Sat.-99-100%.Raul.GT-Feeding.No distress.
[2019-03-06] MEDS: LORazepam Inj 2mg/ml 1ml IV PRN ×2 (03:01→11:07)
--- NOTE | 2019-03-06 04:30 | NUR ---
NURSE NOTES: Pos.chg.q2hrs.Suctioned.Raul.Vent settings.VSS.Scope rhythm same.Irma Carbajal chg.Blood draw for cbc/cmp etc.spec.to Lab.Fentanyl drip cont.to taper down as Raul.Cont.Plan of care.
[2019-03-06] MEDS: NovoLOG Insulin Flexpen SUBQ SCH ×3 (05:35→18:31)
[2019-03-06] MEDS: HydrALAZINE 50mg tab NG SCH ×3 (05:40→22:02)
[2019-03-06] MEDS: cloNIDine 0.2mg Tab NG SCH ×3 (05:41→22:02)
[2019-03-06 05:47] LABS: HEMATOCRIT 22.3 % (42.0-52.0); HEMOGLOBIN 7.4 G/DL (14.2-18.0); MEAN CORPUSCULAR VOLUME 87 FL (80-99); PLATELET COUNT 86 K/UL (150-450); RED BLOOD COUNT 2.56 M/UL (4.70-6.10); RED CELL DISTRIBUTION WIDTH 16.8 % (11.6-14.8); WHITE BLOOD COUNT 2.4 K/UL (4.8-10.8)
[2019-03-06 06:05] LABS: ALANINE AMINOTRANSFERASE 55 U/L (12-78); ALBUMIN 1.9 G/DL (3.4-5.0); ALBUMIN/GLOBULIN RATIO 0.7 (1.0-2.7); ALKALINE PHOSPHATASE 125 U/L (46-116); ANION GAP 6 mmol/L (5-15); ASPARTATE AMINO TRANSFERASE 42 U/L (15-37); BILIRUBIN,TOTAL 0.6 MG/DL (0.2-1.0); BLOOD UREA NITROGEN 28 mg/dL (7-18); CALCIUM 8.2 MG/DL (8.5-10.1); CARBON DIOXIDE 31 MMOL/L (21-32); CHLORIDE 99 MMOL/L (98-107); CREATININE 1.7 MG/DL (0.55-1.30); POTASSIUM 3.4 MMOL/L (3.5-5.1); SODIUM 136 MMOL/L (136-145)
[2019-03-06] MEDS: Lacri-Lube Opth Oint 3.5gm BOTH EYES SCH ×4 (06:18→20:31)
[2019-03-06] MEDS ORDERED: Tubing IV Secondary IV ONE ×3 (06:50→17:22)
[2019-03-06] MEDS ORDERED: NS 275ml ONE ×4 (06:50→17:22)
--- NOTE | 2019-03-06 07:07 | NUR ---
RESPIRATORY NOTES: Received Patient on Vent settings ACVC 24, VT 550, FIO2 40%, PEEP +5. Patient is trached with a Shiley 8 tracheostomy tube, secured with trach ties. Bilateral rhonchi noted throughout both lung almaguer. Suction minimal amount of thick white phipps secretions Q2 and PRN through ETT. Vent alarms are on and audible. Vent plugged into red outlet. Will continue to monitor throughout the day.
--- NOTE | 2019-03-06 07:12 | NUR ---
HAND-OFF: Report given to TESSA VILLAFUERTE.
--- NOTE | 2019-03-06 07:15 | NUR ---
NURSE NOTES: Received change of shift report from Munir ZARATE. Pt opens eyes spontaneously, follows with eyes and able to nod head for response. Pt is currently on Fentanyl drip at 100mcg/hr. Pt has bilateral soft wrist restraints in place to prevent self-extubation, as he is noted to move extremities and attempt to reach/pull ET tube. Pt withdraws to pain. SP Trach, Shiley 8.0 with vent settings AC24, FIO2 40%, Peep 5.0, VT550, with O2sat at 100%. alarm mechanic displays NSR with heart rate in the 70's, and generalized including bilateral peripheral edema, with weak radial/pedal pulses on palpation. Central line IV access present on right upper arm PICC, currently TKO and Fentanyl drip. Pt is receiving Glucerna 1.5 at 43ml/hr via GT per order, at goal rate. Pt is tolerated feeding well with no residual. Abdomen is large, round, slightly hard/nontender to touch with hypoactive bowel sounds present on all quadrants. Rectal tube is in place draining soft liquid brown stool. Simon catheter is in place draining clear/yellow urine with sediments. Pt has scrotal edema. Bilateral SCDs are present on lower extremities for DVT prophylaxis. Pt is on P200 mattress, with head of bed at 30degress, three side rails up, bed locked/in lowest position and call light within reach. Will continue to monitor pt and follow plan of care per MD orders and protocol.
--- NOTE | 2019-03-06 08:00 | NUR ---
NURSE NOTES: Fentanyl drip is maintained at 100mcg/hr to maintain RASS score of -2 light sedation. VS stable.
--- NOTE | 2019-03-06 08:30 | Neurology Progress Note ---
Interim History Interim History ROS Limited/Unobtainable: Yes Complaints: AMS Interim History sp PEG, he is following commands Objective Physical Exam Last Vital Signs Date Time Temp Pulse Resp B/P (MAP) Pulse Ox O2 Delivery O2 Flow Rate FiO2 03/06/19 07:00 89 21 136/53 (80) 100 03/06/19 07:00 Mechanical Ventilator 03/06/19 06:40 40 03/06/19 04:00 99.2 02/26/19 12:53 75.0 Laboratory Tests Test 03/06/19 05:00 03/06/19 08:00 White Blood Count 2.4 K/UL (4.8-10.8) L Pending Red Blood Count 2.56 M/UL (4.70-6.10) L Pending Hemoglobin 7.4 G/DL (14.2-18.0) L Pending Hematocrit 22.3 % (42.0-52.0) L Pending Mean Corpuscular Volume 87 FL (80-99) Pending Mean Corpuscular Hemoglobin 29.0 PG (27.0-31.0) Pending Mean Corpuscular Hemoglobin Concent 33.2 G/DL (32.0-36.0) Pending Red Cell Distribution Width 16.8 % (11.6-14.8) H Pending Platelet Count 86 K/UL (150-450) L Pending Mean Platelet Volume 6.5 FL (6.5-10.1) Pending Neutrophils (%) (Auto) % (45.0-75.0) Pending Lymphocytes (%) (Auto) % (20.0-45.0) Pending Monocytes (%) (Auto) % (1.0-10.0) Pending Eosinophils (%) (Auto) % (0.0-3.0) Pending Basophils (%) (Auto) % (0.0-2.0) Pending Neutrophils % (Manual) Pending Lymphocytes % (Manual) Pending Platelet Estimate Pending Platelet Morphology Pending Sodium Level 136 MMOL/L (136-145) Potassium Level 3.4 MMOL/L (3.5-5.1) L Chloride Level 99 MMOL/L (98-107) Carbon Dioxide Level 31 MMOL/L (21-32) Anion Gap 6 mmol/L (5-15) Blood Urea Nitrogen 28 mg/dL (7-18) H Creatinine 1.7 MG/DL (0.55-1.30) H Estimat Glomerular Filtration Rate 41.5 mL/min (>60) Glucose Level 183 MG/DL (74-106) #H Calcium Level 8.2 MG/DL (8.5-10.1) L Total Bilirubin 0.6 MG/DL (0.2-1.0) Aspartate Amino Transf (AST/SGOT) 42 U/L (15-37) H Alanine Aminotransferase (ALT/SGPT) 55 U/L (12-78) Alkaline Phosphatase 125 U/L (46-116) H Total Protein 4.8 G/DL (6.4-8.2) L Albumin 1.9 G/DL (3.4-5.0) L Globulin 2.9 g/dL Albumin/Globulin Ratio 0.7 (1.0-2.7) L General: well developed, well nourished, other Head: normocophalic, other Neck: no rigidity EENT: benign, other Neurologic Exam Mental Status: awake, other Speech: other Language: other Cranial Nerve II: other Cranial Nerves III, IV, : other Cranial Nerve V: other Cranial Nerve VII: other Cranial Nerve VIII: other Cranial Nerve IX: other Cranial Nerve X: other Cranial Nerve XI: other Cranial Nerve XII: other Motor System: other Sensory: other Coordination: other Deep Tendon Reflexes: 0 bicep (L), 0 bicep (R), 0 tricep (L), 0 tricep (R), 0 brachioradialis (L), 0 brachioradialis (R), 0 knee (L), 0 knee (R), 0 ankle (L) , 0 ankle (R) Reflexes: mute plantar (L), mute plantar (R) Stance: other Gait: other Objective sp trach awake, can tell me his name pupils are symmetric and reactive corneals present Antigravity in all 4 symmetric Impression/Recommendations Problems: (1) AIDS (2) Anemia (3) Anxiety (4) Diabetes (5) Hypertension (6) HIV disease (7) CKD (chronic kidney disease) (8) History of stroke (9) NSTEMI (non-ST elevated myocardial infarction) (10) MDD (major depressive disorder), recurrent episode, moderate (11) Respiratory distress (12) Hypoxia (13) HIV (human immunodeficiency virus infection) (14) Acute coronary syndrome (15) Elevated troponin (16) Pneumonia (17) Acute hypoxemic respiratory failure (18) Endotracheally intubated (19) ISH (acute kidney injury) (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 (33) acute small R pontomedullary and left cerebellar peduncle strokes. 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
[2019-03-06 08:31] LABS: HEMATOCRIT 23.8 % (42.0-52.0); HEMOGLOBIN 7.8 G/DL (14.2-18.0); MEAN CORPUSCULAR VOLUME 88 FL (80-99); PLATELET COUNT 85 K/UL (150-450); RED CELL DISTRIBUTION WIDTH 16.4 % (11.6-14.8); WHITE BLOOD COUNT 2.8 K/UL (4.8-10.8)
--- NOTE | 2019-03-06 08:40 | NUR ---
RESPIRATORY NOTE: Patient placed on PS 10 PEEP +5 Fio2 40% by Dr. Meredith at 0840. Patient currently tolerating well. Will continue to closely monitor patient.
--- NOTE | 2019-03-06 08:47 | Pulmonolgy Critical Care Note ---
Critical Care - Asmt/Plan Problems: (1) Endotracheally intubated (2) Acute hypoxemic respiratory failure (3) Pneumonia (4) NSTEMI (non-ST elevated myocardial infarction) (5) AIDS (6) HIV disease (7) Hypertension (8) MDD (major depressive disorder), recurrent episode, moderate (9) Anemia (10) CKD (chronic kidney disease) (11) History of stroke (12) Diabetes (13) Anxiety (14) Malignant hypertension (15) Occult blood positive stool Assessment/Plan: VDRF, extubated 02/19, re-intubated 02/20, trach 03/02 S/P GT 03/05 Hemoptysis, hematemesis ARDS Acute respiratory failure B pulmonary infiltrates, ? multilobar CAP vs atypical infection vs other ? PJP AIDS (CD4 191) NSTEMI H/O prior CVA HTN HL DM with uncontrolled BS ISH on CKD Anemia, FOBT + PLAN: Continue ventilatory support/settings reviewed Daily SBT - D/W RN and RT Keep PEEP 5, titrate down FiO2 to keep SaO2 > 90% RTC and PRN HHN's Continue Abx & flucon per ID Off steroids Monitor volumes and renal function --> Continue Zaroxyln 10 and decrease lasix to 20 IV qDaily F/U cards recs: will need further ischemia eval/cath once stabilized DVT Px: Hep SQ Monitor for bleeding, F/U GI recs, transfuse PRN Hb < 7 F/U ENDO recs TF's FC, continue to discuss GOC D/W RN and RT @ bedside CCT 35 Critical Care - Objective Last 24 Hour Vital Signs Date Time Temp Pulse Resp B/P (MAP) Pulse Ox O2 Delivery O2 Flow Rate FiO2 03/06/19 07:00 89 21 136/53 (80) 100 03/06/19 07:00 24 Mechanical Ventilator 03/06/19 06:40 84 24 100 Mechanical Ventilator 40 03/06/19 06:38 86 25 40 03/06/19 06:35 85 24 100 Mechanical Ventilator 40 03/06/19 06:30 84 24 130/54 (79) 100 03/06/19 06:00 24 Mechanical Ventilator 03/06/19 06:00 87 22 124/48 (73) 100 03/06/19 05:41 144/48 03/06/19 05:40 144/48 03/06/19 05:30 86 24 124/48 (73) 100 03/06/19 05:00 86 24 144/48 (80) 100 03/06/19 05:00 24 Mechanical Ventilator 03/06/19 04:52 87 24 40 03/06/19 04:30 97 18 140/54 (82) 99 03/06/19 04:00 40 03/06/19 04:00 99.2 95 139/51 (80) 98 03/06/19 04:00 Mechanical Ventilator Mechanical Ventilator 03/06/19 04:00 24 Mechanical Ventilator 03/06/19 04:00 78 03/06/19 03:30 90 141/53 (82) 99 03/06/19 03:22 92 25 40 03/06/19 03:00 24 Mechanical Ventilator 03/06/19 03:00 92 21 136/55 (82) 98 03/06/19 02:30 91 24 141/59 (86) 99 03/06/19 02:00 24 Mechanical Ventilator 03/06/19 02:00 96 19 149/58 (88) 99 03/06/19 01:30 94 24 155/64 (94) 99 03/06/19 01:21 90 24 98 Mechanical Ventilator 40 03/06/19 01:07 78 24 100 Mechanical Ventilator 40 03/06/19 01:06 78 24 40 03/06/19 01:00 24 Mechanical Ventilator 03/06/19 01:00 79 24 141/62 (88) 100 03/06/19 00:30 78 24 149/55 (86) 99 03/06/19 00:00 40 03/06/19 00:00 78 03/06/19 00:00 Mechanical Ventilator Mechanical Ventilator 03/06/19 00:00 24 Mechanical Ventilator 03/06/19 00:00 99.3 78 25 149/57 (87) 100 03/05/19 23:30 78 24 148/56 (86) 98 03/05/19 23:12 80 25 40 03/05/19 23:00 78 24 142/53 (82) 98 03/05/19 23:00 24 Mechanical Ventilator 03/05/19 22:49 139/58 03/05/19 22:49 139/58 03/05/19 22:30 80 22 139/58 (85) 99 03/05/19 22:00 76 24 131/50 (77) 99 03/05/19 22:00 24 Mechanical Ventilator 03/05/19 21:41 99.2 03/05/19 21:30 77 21 141/52 (81) 98 03/05/19 21:28 78 24 40 03/05/19 21:11 20 Mechanical Ventilator 03/05/19 21:00 78 15 131/68 (89) 99 03/05/19 20:58 75 135/51 03/05/19 20:30 74 24 135/51 (79) 98 03/05/19 20:00 Mechanical Ventilator Mechanical Ventilator 03/05/19 20:00 76 03/05/19 20:00 40 03/05/19 20:00 99.2 76 24 121/59 (79) 97 03/05/19 19:30 78 12 131/58 (82) 99 03/05/19 19:12 76 25 98 Mechanical Ventilator 40 03/05/19 19:01 76 24 40 03/05/19 19:00 76 24 99 Mechanical Ventilator 40 03/05/19 19:00 24 Mechanical Ventilator 40 03/05/19 19:00 76 19 149/53 (85) 99 03/05/19 18:00 77 21 127/72 (90) 99 03/05/19 18:00 24 Mechanical Ventilator 40 03/05/19 17:30 79 23 147/61 (89) 100 03/05/19 17:00 99.5 80 24 131/53 (79) 100 03/05/19 17:00 24 Mechanical Ventilator 40 03/05/19 17:00 72 24 40 03/05/19 16:30 74 20 142/58 (86) 99 03/05/19 16:00 70 03/05/19 16:00 Mechanical Ventilator Mechanical Ventilator 03/05/19 16:00 24 Mechanical Ventilator 40 03/05/19 16:00 78 22 147/59 (88) 99 03/05/19 16:00 40 03/05/19 15:30 71 22 136/48 (77) 98 03/05/19 15:01 74 24 40 03/05/19 15:00 24 Mechanical Ventilator 40 03/05/19 15:00 73 19 138/48 (78) 100 03/05/19 14:30 71 21 127/48 (74) 99 03/05/19 14:00 24 Mechanical Ventilator 40 03/05/19 14:00 73 24 131/48 (75) 98 03/05/19 13:30 76 24 137/54 (81) 98 03/05/19 13:10 82 24 100 Mechanical Ventilator 40 03/05/19 13:10 140/49 03/05/19 13:08 140/49 03/05/19 13:07 24 Mechanical Ventilator 40 03/05/19 13:02 77 21 100 03/05/19 13:01 77 24 100 03/05/19 13:00 76 22 141/49 (79) 99 03/05/19 13:00 24 Mechanical Ventilator 40 03/05/19 12:59 82 24 40 03/05/19 12:58 82 24 98 Mechanical Ventilator 40 03/05/19 12:30 76 22 149/53 (85) 100 03/05/19 12:00 40 03/05/19 12:00 99.0 78 25 139/56 (83) 100 03/05/19 12:00 72 03/05/19 12:00 24 Mechanical Ventilator 40 03/05/19 12:00 Mechanical Ventilator Mechanical Ventilator 03/05/19 11:00 74 23 143/54 (83) 100 03/05/19 11:00 24 Mechanical Ventilator 40 03/05/19 11:00 74 25 40 03/05/19 10:00 73 24 140/55 (83) 100 03/05/19 10:00 24 Mechanical Ventilator 40 03/05/19 09:30 70 24 133/53 (79) 100 03/05/19 09:01 73 24 40 03/05/19 09:00 24 Mechanical Ventilator 40 03/05/19 09:00 24 Mechanical Ventilator 40 03/05/19 09:00 74 23 135/55 (81) 99 Status: awake, other - intubated Condition: improving HEENT: atraumatic, normocephalic Neck: trach Lungs: clear Heart: HR/BP stable Abdomen: soft, non-tender, active bowel sounds, feeding tube Extremities: no C/C/E Micro: Microbiology Date/Time Source Procedure Growth Status 03/03/19 12:40 Blood Blood Culture - Preliminary NO GROWTH AFTER 48 HOURS Resulted 03/03/19 11:00 Blood Blood Culture - Preliminary NO GROWTH AFTER 48 HOURS Resulted 03/03/19 18:00 Indwelling Cath Urine Culture - Final NO GROWTH AFTER 48 HOURS Complete Accucheck: 208 Critical Care - Subjective ROS Limited/Unobtainable: Yes ICU Day: 26 Intubation Day: Trach Interval Events: S.P PEG SBT not done Ct inc Condition: stable IV Access: PICC EKG Rhythm: Sinus Rhythm Vent Support Breath Rate: 24 Vent Support Mode: AC Vent Tidal Volume: 550 Sputum Amount: Scant PEEP: 5.0 PIP: 24 Fluids: SLIV Drips: Fent Tube Feeding Amount: 43 I&O: Intake and Output 03/05/19 03/06/19 19:00 07:00 Intake Total 1129.416 ml 850 ml Output Total 2120 ml 1370 ml Balance -990.584 ml -520 ml Free Water 100 ml 150 ml IV Total 857.416 ml 184 ml Tube Feeding 172 ml 516 ml Output Urine Total 2020 ml 1370 ml Stool Total 100 ml Subjective: No SOB no distress no cough ET-Tube: 7.5 ET Position: 24 Labs: Laboratory Tests Test 03/06/19 05:00 03/06/19 08:00 White Blood Count 2.4 K/UL (4.8-10.8) L Pending Red Blood Count 2.56 M/UL (4.70-6.10) L Pending Hemoglobin 7.4 G/DL (14.2-18.0) L Pending Hematocrit 22.3 % (42.0-52.0) L Pending Mean Corpuscular Volume 87 FL (80-99) Pending Mean Corpuscular Hemoglobin 29.0 PG (27.0-31.0) Pending Mean Corpuscular Hemoglobin Concent 33.2 G/DL (32.0-36.0) Pending Red Cell Distribution Width 16.8 % (11.6-14.8) H Pending Platelet Count 86 K/UL (150-450) L Pending Mean Platelet Volume 6.5 FL (6.5-10.1) Pending Neutrophils (%) (Auto) % (45.0-75.0) Pending Lymphocytes (%) (Auto) % (20.0-45.0) Pending Monocytes (%) (Auto) % (1.0-10.0) Pending Eosinophils (%) (Auto) % (0.0-3.0) Pending Basophils (%) (Auto) % (0.0-2.0) Pending Neutrophils % (Manual) Pending Lymphocytes % (Manual) Pending Platelet Estimate Pending Platelet Morphology Pending Sodium Level 136 MMOL/L (136-145) Potassium Level 3.4 MMOL/L (3.5-5.1) L Chloride Level 99 MMOL/L (98-107) Carbon Dioxide Level 31 MMOL/L (21-32) Anion Gap 6 mmol/L (5-15) Blood Urea Nitrogen 28 mg/dL (7-18) H Creatinine 1.7 MG/DL (0.55-1.30) H Estimat Glomerular Filtration Rate 41.5 mL/min (>60) Glucose Level 183 MG/DL (74-106) #H Calcium Level 8.2 MG/DL (8.5-10.1) L Total Bilirubin 0.6 MG/DL (0.2-1.0) Aspartate Amino Transf (AST/SGOT) 42 U/L (15-37) H Alanine Aminotransferase (ALT/SGPT) 55 U/L (12-78) Alkaline Phosphatase 125 U/L (46-116) H Total Protein 4.8 G/DL (6.4-8.2) L Albumin 1.9 G/DL (3.4-5.0) L Globulin 2.9 g/dL Albumin/Globulin Ratio 0.7 (1.0-2.7) L Brett Meredith MD Mar 06, 2019 08:47
[2019-03-06] MEDS: Sennosides 8.6mg tab ORAL SCH (09:00)
[2019-03-06] MEDS: Pantoprazole Inj IVP SCH (09:00)
[2019-03-06] MEDS: Docusate 100mg/10ml Liq GT SCH ×3 (09:00→18:00)
--- NOTE | 2019-03-06 09:00 | NUR ---
NURSE NOTES: Fentanyl drip has been titrated to 200mcg/hr to maintain RASS score of -[address] Meredith was at bedside at 0845 and MD himself changed vent settings to CPAP with pressure support of 10, Peep maintained at 5.0 and FIO2 maintained at 40%. Per MD instructions, pt is to remain on these settings for as long as he can tolerate successfully, and pt can be weaned without holding sedation/Fentanyl drip. RT has been informed. Also, MD requests to have pt weaned at start of shift by 0800 in the morning. Will follow and endorse to RT and next coming shift. Pt is tolerating current vent setting with O2sat at 100% and no apparent distress. Will continue to monitor.
[2019-03-06] MEDS: Bactrim-DS 1 tab ORAL SCH (09:01)
[2019-03-06] MEDS: ETRAVIRINE 200 MG ORAL SCH (09:01)
[2019-03-06] MEDS: RALTEGRAVIR 400 MG ORAL SCH ×2 (09:01→18:00)
[2019-03-06] MEDS: TENOFOVIR DISOPROXIL FUMARATE 300 MG ORAL SCH (09:01)
--- NOTE | 2019-03-06 09:08 | Hematology/Onc Progress Note ---
Assessment/Plan Assessment/Plan ASSESSMENT AND RECS: # Pancytopenia with all three cell lines have, decreasing counts could also be due to underlying hiv meds, sepsis as well as HIV --> Anemia workup has been reviewed. Ferritin 182 --> Hep panel pending and HIV confirmed positive --> No evidence of hemolysis is noted, peripheral smear has been reviewed. --> Hgb goal >7. Transfuse prn. --> Epogen or iron at this time is not particularly indicated --> Medications have been reviewed --> Stool OB negative --> Blood tx: 1 unit on 02/10/19, --> off ASA, off heparin, off lovenox --> Hgb trend: 7.6-->8.2-->9.4-->8.4-->8.2 -->8.9-->10.3->7.9-->8.1->7.8-->8.7-- >8.4-->8.1-->7.9-->8.2 --> WBC 5-->4-->3.2-->3.1-->3.4 --> Plt trend: 153-->257-->224-->205-->253-->310-->201->177-->115-->104-->100--> 106-->96k --> Transfuse if Plt < 20k and fever, or if Plt < 10k without fever --> WILLIAM screen negative # Multilobar pneumonia in patient with HIV. Recs per ID. --> Broad sp atbx started. Continue on abx as per id --> Droplet precaution # Hypoxemic respiratory failure. s/p trach --> Due to pneumonia, on abx --> pulm recs reviewed --> SBT as per pulm # Chest pain. 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 --> Trend troponin x3 --> NGT prn # HIV. --> Continue HARRT --> VL is undetectable per patient report. # HTN --> Resume home medication # DVT and GI ppx The time the note is entered does not reflect the time the patient was examined. I greatly appreciate the consultation. Subjective Constitutional: Denies: no symptoms, chills, fever, malaise, weakness, other HEENT: Denies: no symptoms, eye pain, blurred vision, tearing, double vision, ear pain, ear discharge, nose pain, nose congestion, throat pain, throat swelling, mouth pain, mouth swelling, other Cardiovascular: Denies: no symptoms, chest pain, edema, irregular heart rate, lightheadedness, palpitations, syncope, other Respiratory: Denies: no symptoms, cough, shortness of breath, SOB with excertion, SOB at rest, sputum, wheezing, other Genitourinary: Denies: no symptoms, burning, discharge, frequency, flank pain, hematuria, incontinence, pain, urgency, other Neurologic/Psychiatric: Denies: no symptoms, anxiety, depressed, emotional problems, headache, numbness, paresthesia, pre-existing deficit, seizure, tingling, tremors, weakness, other Allergies: Coded Allergies: No Known Allergies (Unverified , 02/05/13) Subjective Subjective 02/11: Hgb yesterday was 7.6, s/p 1 unit prbc. Current hgb at 8.2. Pt attempted to pull out tubes per nursing team, soft restraints applied. 02/13: Pt in ICU and intubated. Pt currently sedated. Current hgb 9.4. 02/14: Pt remains in icu, sedated. Hgb stable. 02/15: Remains in icu, lethargic. No acute events. Hgb stable. 02/16: Remains in icu. CXR today shows worsening CHF/pulmonary edema. Pt wake and sedation decrease for weaning. 02/18: Remains in icu. Pt on vent. CXR today shows pulmonary edema, persistent small left pleural effusion. 02/19: Remains in the icu, now extubated, seen by pulm, labs reviewed 02/20: Remains in ICU, Pt intubated, CXR today shows Congestive heart failure with interval worsening 02/21: reintubated, tolerating vent well, seen by pulm/cc 02/23: pt remains on fently gtt, prn ativan, currenlty intubated on vent, no further bleeding, d/w RN> 02/24:failed weaning, fentanyl drip decreased. 02/25:pt seen in am,sedated. 02/27: remains intubated, may need trach, nobleeding today 02/28: tolerated cpap, now back on vent, no bleeding off asa/lovenox 03/01: fentanyl gtt is now off, remains in icu, dw rn 03/02: to get trach today, at approx 12, no events, labs somewhat lower 03/03: still confused on exam, d/w rn, no events, on fentanyl gtt 03/05: to get peg tomorrow, no f/c 03/06: received peg yesterday, tolerating tfs well, no f/c, labs reviewed Objective Objective Current Medications Medications (Trade) Dose Ordered Sig/Marquis Route PRN Reason Start Time Stop Time Status Last Admin Dose Admin Acetaminophen (Tylenol) 650 mg Q4H PRN ORAL Mild Pain (Pain Scale 1-3) 02/07/19 11:15 03/08/19 17:29 03/04/19 12:34 Acetaminophen/ Butalbital/ Caffeine (Fioricet) 1 tab Q8H PRN ORAL For Headache 02/08/19 17:15 03/10/19 17:14 Albuterol/ Ipratropium (Albuterol/ Ipratropium) 3 ml Q6HRT HHN 03/03/19 19:00 03/08/19 18:59 03/06/19 06:40 Amlodipine Besylate (Norvasc) 10 mg DAILY NG 02/15/19 09:00 03/14/19 15:59 03/06/19 09:00 Artificial Tears (Lacri-Lube) 1 applic AC+HS BOTH EYES 02/18/19 06:30 03/20/19 06:29 03/06/19 06:18 Bisacodyl (Dulcolax) 5 mg DAILYPRN PRN ORAL Constipation 02/08/19 17:15 03/10/19 17:14 02/25/19 12:45 Chlorhexidine Gluconate (Jessy-Hex 2%) 1 applic DAILY@2000 TOPIC 02/25/19 20:00 03/27/19 19:59 03/05/19 19:45 Clonidine HCl (Catapres tab) 0.2 mg EVERY 8 HOURS NG 03/02/19 22:00 03/19/19 13:59 03/06/19 05:41 Dextrose (Dextrose 50%) 25 ml Q30M PRN IV Hypoglycemia 03/01/19 07:15 03/31/19 07:14 Dextrose (Dextrose 50%) 50 ml Q30M PRN IV Hypoglycemia 03/01/19 07:15 03/31/19 07:14 03/05/19 05:32 Docusate Sodium (Colace) 100 mg TID GT 02/12/19 18:00 03/12/19 08:59 03/06/19 09:00 Fentanyl Citrate 2500 mcg/Sodium Chloride 250 ml @ 0 mls/hr Q24H IV 03/03/19 00:00 03/10/19 00:00 03/05/19 21:11 Fluconazole/ Sodium Chloride 100 ml @ 100 mls/hr Q24H IV 03/03/19 18:00 03/10/19 17:59 03/05/19 17:50 Furosemide (Lasix) 20 mg DAILY IV 03/06/19 09:00 03/31/19 08:59 03/06/19 09:00 Heparin Sodium (Porcine) (Heparin 5000 units/ml) 5,000 units EVERY 12 HOURS SUBQ 02/26/19 21:00 03/28/19 20:59 03/05/19 21:06 Hydralazine HCl (Apresoline) 10 mg Q4H PRN IV bp over 165 syst 02/17/19 10:15 03/19/19 10:14 02/19/19 14:45 Hydralazine HCl (Apresoline) 50 mg Q8HR NG 02/22/19 14:00 03/21/19 21:59 03/06/19 05:40 Insulin Aspart (NovoLOG) EVERY 6 HOURS SUBQ 02/26/19 12:00 03/28/19 11:59 03/06/19 05:35 Insulin Detemir (Levemir) 10 units Q12HR SUBQ 03/05/19 09:00 04/01/19 20:59 03/05/19 21:07 Lorazepam (Ativan 2mg/ml 1ml) 2 mg Q2H PRN IV For Anxiety 02/27/19 13:48 03/06/19 13:47 03/06/19 03:01 Meropenem 1 gm/ Sodium Chloride 55 ml @ 110 mls/hr Q12HR IVPB 03/03/19 21:00 03/08/19 20:59 03/05/19 20:58 Metoclopramide HCl (Reglan) 5 mg Q8H IVP 02/26/19 09:00 03/28/19 08:59 03/06/19 09:00 Metolazone (Zaroxolyn) 10 mg DAILY NG 02/19/19 10:00 03/21/19 09:59 03/05/19 08:06 Metoprolol Tartrate (Lopressor) 100 mg Q12HR ORAL 02/22/19 21:00 03/08/19 20:59 03/06/19 09:00 Midazolam HCl (Versed 2mg/2ml vial) 1 mg Q2H PRN IVP Agitation 02/13/19 08:45 03/15/19 08:44 02/27/19 11:05 Neomycin/ Polymyxin/ Dexamethasone (Maxitrol Opth Oint) 1 applic BEDTIME BOTH EYES 02/18/19 21:00 03/20/19 20:59 03/05/19 20:58 Nitroglycerin (Ntg) 0.4 mg Q5M PRN SL Prn Chest Pain 02/07/19 11:00 03/08/19 17:29 02/08/19 07:42 Ondansetron HCl (Zofran) 4 mg Q6H PRN IVP Nausea & Vomiting 02/07/19 11:15 03/08/19 11:14 02/09/19 00:58 Pantoprazole (Protonix) 40 mg DAILY IVP 02/26/19 09:00 03/24/19 20:59 03/06/19 09:00 Patient Own Medication (Patient's Own Med) 1 ea BID ORAL 02/07/19 18:00 03/09/19 17:59 03/06/19 09:01 Patient Own Medication (Patient's Own Med) 1 ea DAILY ORAL 03/05/19 12:00 04/04/19 11:59 03/06/19 09:01 Patient Own Medication (Patient's Own Med) 2 ea DAILY ORAL 02/08/19 09:00 03/10/19 08:59 03/06/19 09:01 Polyethylene Glycol (Miralax) 17 gm BEDTIME ORAL 02/08/19 21:00 03/10/19 20:59 03/03/19 21:01 Potassium Chloride 100 ml @ 100 mls/hr Q1HR IVPB 03/06/19 09:00 03/06/19 10:59 Sennosides (Senokot) 8.6 mg DAILY ORAL 02/13/19 12:00 03/15/19 11:59 03/06/19 09:00 Trimethoprim/ Sulfamethoxazole (Bactrim-DS) 1 tab DAILY ORAL 03/04/19 09:00 03/11/19 08:59 03/06/19 09:01 Vancomycin HCl (Vanco rx to dose) 1 ea DAILY PRN MISC Per rx protocol 03/03/19 11:00 04/02/19 10:59 Vancomycin HCl 1 gm/Dextrose 275 ml @ 183.708 mls/hr Q24H IVPB 03/05/19 09:00 03/10/19 08:59 03/05/19 09:24 Last 24 Hour Vital Signs Date Time Temp Pulse Resp B/P (MAP) Pulse Ox O2 Delivery O2 Flow Rate FiO2 03/06/19 09:00 89 136/53 03/06/19 09:00 89 136/53 03/06/19 07:00 89 21 136/53 (80) 100 03/06/19 07:00 24 Mechanical Ventilator 03/06/19 06:40 84 24 100 Mechanical Ventilator 40 03/06/19 06:38 86 25 40 03/06/19 06:35 85 24 100 Mechanical Ventilator 40 03/06/19 06:30 84 24 130/54 (79) 100 03/06/19 06:00 24 Mechanical Ventilator 03/06/19 06:00 87 22 124/48 (73) 100 03/06/19 05:41 144/48 03/06/19 05:40 144/48 03/06/19 05:30 86 24 124/48 (73) 100 03/06/19 05:00 86 24 144/48 (80) 100 03/06/19 05:00 24 Mechanical Ventilator 03/06/19 04:52 87 24 40 03/06/19 04:30 97 18 140/54 (82) 99 03/06/19 04:00 40 03/06/19 04:00 99.2 95 139/51 (80) 98 03/06/19 04:00 Mechanical Ventilator Mechanical Ventilator 03/06/19 04:00 24 Mechanical Ventilator 03/06/19 04:00 78 03/06/19 03:30 90 141/53 (82) 99 03/06/19 03:22 92 25 40 03/06/19 03:00 24 Mechanical Ventilator 03/06/19 03:00 92 21 136/55 (82) 98 03/06/19 02:30 91 24 141/59 (86) 99 03/06/19 02:00 24 Mechanical Ventilator 03/06/19 02:00 96 19 149/58 (88) 99 03/06/19 01:30 94 24 155/64 (94) 99 03/06/19 01:21 90 24 98 Mechanical Ventilator 40 03/06/19 01:07 78 24 100 Mechanical Ventilator 40 03/06/19 01:06 78 24 40 03/06/19 01:00 24 Mechanical Ventilator 03/06/19 01:00 79 24 141/62 (88) 100 03/06/19 00:30 78 24 149/55 (86) 99 03/06/19 00:00 40 03/06/19 00:00 78 03/06/19 00:00 Mechanical Ventilator Mechanical Ventilator 03/06/19 00:00 24 Mechanical Ventilator 03/06/19 00:00 99.3 78 25 149/57 (87) 100 03/05/19 23:30 78 24 148/56 (86) 98 03/05/19 23:12 80 25 40 03/05/19 23:00 78 24 142/53 (82) 98 03/05/19 23:00 24 Mechanical Ventilator 03/05/19 22:49 139/58 03/05/19 22:49 139/58 03/05/19 22:30 80 22 139/58 (85) 99 03/05/19 22:00 76 24 131/50 (77) 99 03/05/19 22:00 24 Mechanical Ventilator 03/05/19 21:41 99.2 03/05/19 21:30 77 21 141/52 (81) 98 03/05/19 21:28 78 24 40 03/05/19 21:11 20 Mechanical Ventilator 03/05/19 21:00 78 15 131/68 (89) 99 03/05/19 20:58 75 135/51 03/05/19 20:30 74 24 135/51 (79) 98 03/05/19 20:00 Mechanical Ventilator Mechanical Ventilator 03/05/19 20:00 76 03/05/19 20:00 40 03/05/19 20:00 99.2 76 24 121/59 (79) 97 03/05/19 19:30 78 12 131/58 (82) 99 03/05/19 19:12 76 25 98 Mechanical Ventilator 40 03/05/19 19:01 76 24 40 03/05/19 19:00 76 24 99 Mechanical Ventilator 40 03/05/19 19:00 24 Mechanical Ventilator 40 03/05/19 19:00 76 19 149/53 (85) 99 03/05/19 18:00 77 21 127/72 (90) 99 03/05/19 18:00 24 Mechanical Ventilator 40 03/05/19 17:30 79 23 147/61 (89) 100 03/05/19 17:00 99.5 80 24 131/53 (79) 100 03/05/19 17:00 24 Mechanical Ventilator 40 03/05/19 17:00 72 24 40 03/05/19 16:30 74 20 142/58 (86) 99 03/05/19 16:00 70 03/05/19 16:00 Mechanical Ventilator Mechanical Ventilator 03/05/19 16:00 24 Mechanical Ventilator 40 03/05/19 16:00 78 22 147/59 (88) 99 03/05/19 16:00 40 03/05/19 15:30 71 22 136/48 (77) 98 03/05/19 15:01 74 24 40 03/05/19 15:00 24 Mechanical Ventilator 40 03/05/19 15:00 73 19 138/48 (78) 100 03/05/19 14:30 71 21 127/48 (74) 99 03/05/19 14:00 24 Mechanical Ventilator 40 03/05/19 14:00 73 24 131/48 (75) 98 03/05/19 13:30 76 24 137/54 (81) 98 03/05/19 13:10 82 24 100 Mechanical Ventilator 40 03/05/19 13:10 140/49 03/05/19 13:08 140/49 03/05/19 13:07 24 Mechanical Ventilator 40 03/05/19 13:02 77 21 100 03/05/19 13:01 77 24 100 03/05/19 13:00 76 22 141/49 (79) 99 03/05/19 13:00 24 Mechanical Ventilator 40 03/05/19 12:59 82 24 40 03/05/19 12:58 82 24 98 Mechanical Ventilator 40 03/05/19 12:30 76 22 149/53 (85) 100 03/05/19 12:00 40 03/05/19 12:00 99.0 78 25 139/56 (83) 100 03/05/19 12:00 72 03/05/19 12:00 24 Mechanical Ventilator 40 03/05/19 12:00 Mechanical Ventilator Mechanical Ventilator 03/05/19 11:00 74 23 143/54 (83) 100 03/05/19 11:00 24 Mechanical Ventilator 40 03/05/19 11:00 74 25 40 03/05/19 10:00 73 24 140/55 (83) 100 03/05/19 10:00 24 Mechanical Ventilator 40 03/05/19 09:30 70 24 133/53 (79) 100 03/05/19 09:01 73 24 40 03/05/19 09:00 24 Mechanical Ventilator 40 03/05/19 09:00 24 Mechanical Ventilator 40 03/05/19 09:00 74 23 135/55 (81) 99 03/05/19 08:30 84 24 141/59 (86) 99 03/05/19 08:07 86 153/59 03/05/19 08:07 86 153/59 03/05/19 08:00 92 03/05/19 08:00 24 Mechanical Ventilator 40 03/05/19 08:00 40 03/05/19 08:00 99.2 96 23 151/76 (101) 100 03/05/19 08:00 Mechanical Ventilator Mechanical Ventilator 03/05/19 07:00 22 Mechanical Ventilator 40 03/05/19 07:00 86 25 100 Mechanical Ventilator 40 03/05/19 07:00 90 21 153/59 (90) 100 03/05/19 06:50 85 26 100 Mechanical Ventilator 40 03/05/19 06:49 86 25 40 03/05/19 06:30 88 20 157/64 (95) 100 03/05/19 06:00 24 Mechanical Ventilator 40 03/05/19 06:00 86 23 156/61 (92) 100 03/05/19 05:34 160/128 03/05/19 05:33 160/128 03/05/19 05:30 88 23 162/64 (96) 100 03/05/19 05:24 86 25 40 03/05/19 05:00 83 23 160/128 (139) 100 03/05/19 05:00 24 Mechanical Ventilator 40 03/05/19 04:30 84 22 160/58 (92) 100 03/05/19 04:00 83 03/05/19 04:00 99.0 94 25 109/57 (74) 99 03/05/19 04:00 Mechanical Ventilator Mechanical Ventilator 03/05/19 04:00 24 Mechanical Ventilator 40 03/05/19 04:00 40 03/05/19 03:30 82 22 150/52 (84) 98 03/05/19 03:07 76 22 40 03/05/19 03:00 21 Mechanical Ventilator 40 03/05/19 03:00 95 24 154/61 (92) 98 03/05/19 02:30 78 20 147/53 (84) 100 03/05/19 02:00 22 Mechanical Ventilator 40 03/05/19 02:00 79 14 148/54 (85) 99 03/05/19 01:30 84 21 145/59 (87) 99 03/05/19 01:13 77 25 99 Mechanical Ventilator 40 03/05/19 01:11 78 24 40 03/05/19 01:00 77 20 148/98 (115) 99 03/05/19 01:00 22 Mechanical Ventilator 40 03/05/19 01:00 74 25 97 Mechanical Ventilator 40 03/05/19 00:30 81 17 143/56 (85) 100 03/05/19 00:00 98.7 76 23 147/53 (84) 100 03/05/19 00:00 84 03/05/19 00:00 40 03/05/19 00:00 Mechanical Ventilator Mechanical Ventilator 03/05/19 00:00 22 Mechanical Ventilator 40 03/04/19 23:30 75 24 40 03/04/19 23:30 73 24 140/52 (81) 100 03/04/19 23:01 71 21 142/58 (86) 96 03/04/19 23:00 24 Mechanical Ventilator 40 03/04/19 22:48 24 Mechanical Ventilator 40 03/04/19 22:30 71 18 142/56 (84) 99 03/04/19 22:00 18 Mechanical Ventilator 40 03/04/19 22:00 75 14 139/49 (79) 98 03/04/19 21:54 141/53 03/04/19 21:54 141/53 03/04/19 21:30 82 33 40 03/04/19 21:30 84 23 141/53 (82) 98 03/04/19 21:00 23 Mechanical Ventilator 40 03/04/19 21:00 89 23 155/57 (89) 100 03/04/19 20:57 80 138/55 03/04/19 20:30 80 24 138/55 (82) 99 03/04/19 20:00 80 03/04/19 20:00 Mechanical Ventilator Mechanical Ventilator 03/04/19 20:00 21 Mechanical Ventilator 40 03/04/19 20:00 40 03/04/19 20:00 77 23 129/52 (77) 99 03/04/19 19:30 99.2 73 21 120/87 (98) 100 03/04/19 19:22 75 24 40 03/04/19 19:20 76 24 100 Mechanical Ventilator 40 03/04/19 19:10 69 24 99 Mechanical Ventilator 40 03/04/19 19:00 24 Mechanical Ventilator 03/04/19 19:00 69 22 118/63 (81) 99 03/04/19 18:30 71 24 133/59 (83) 99 03/04/19 18:00 23 Mechanical Ventilator 40 03/04/19 18:00 73 24 136/72 (93) 100 03/04/19 17:30 83 20 154/70 (98) 100 03/04/19 17:21 72 24 40 03/04/19 17:00 71 18 154/70 (98) 100 03/04/19 17:00 15 Mechanical Ventilator 03/04/19 16:30 74 24 144/47 (79) 100 03/04/19 16:00 98.7 69 24 150/52 (84) 99 03/04/19 16:00 Mechanical Ventilator Mechanical Ventilator 03/04/19 16:00 40 03/04/19 16:00 71 03/04/19 16:00 24 Mechanical Ventilator 40 03/04/19 15:30 71 21 128/44 (72) 97 03/04/19 15:08 67 24 40 03/04/19 15:00 69 24 150/58 (88) 98 7/14/19 15:00 24 Mechanical Ventilator 40 03/04/19 14:30 71 17 133/50 (77) 98 03/04/19 14:28 133/50 03/04/19 14:27 133/50 03/04/19 14:00 84 17 133/50 (77) 98 03/04/19 14:00 21 Mechanical Ventilator 03/04/19 13:30 72 25 135/65 (88) 98 03/04/19 13:12 74 24 100 Mechanical Ventilator 40 03/04/19 13:12 64 24 40 03/04/19 13:04 100.2 03/04/19 13:00 68 24 155/85 (108) 97 03/04/19 13:00 24 Mechanical Ventilator 40 03/04/19 13:00 67 24 98 Mechanical Ventilator 40 03/04/19 12:30 79 23 153/78 (103) 98 03/04/19 12:00 Mechanical Ventilator Mechanical Ventilator 03/04/19 12:00 100.5 74 24 157/66 (96) 98 03/04/19 12:00 40 03/04/19 12:00 24 Mechanical Ventilator 30 03/04/19 12:00 79 03/04/19 12:00 40 03/04/19 11:30 73 20 147/47 (80) 99 03/04/19 11:00 69 24 146/50 (82) 99 03/04/19 10:58 24 Mechanical Ventilator 03/04/19 10:45 73 24 40 03/04/19 10:30 73 24 142/43 (76) 98 03/04/19 10:00 24 Mechanical Ventilator 03/04/19 10:00 75 24 150/56 (87) 99 03/04/19 09:30 94 23 150/56 (87) 98 03/04/19 09:16 93 172/57 03/04/19 09:15 94 172/57 Intake and Output 03/05/19 03/06/19 19:00 07:00 Intake Total 1129.416 ml 850 ml Output Total 2120 ml 1370 ml Balance -990.584 ml -520 ml Free Water 100 ml 150 ml IV Total 857.416 ml 184 ml Tube Feeding 172 ml 516 ml Output Urine Total 2020 ml 1370 ml Stool Total 100 ml Labs Test 03/03/19 11:00 03/04/19 05:59 03/05/19 04:45 03/06/19 05:00 Urine Color Pale yellow Urine Appearance Slightly cloudy Urine pH 5 (4.5-8.0) Urine Specific [place] 1.005 (1.005-1.035) Urine Protein 2+ (NEGATIVE) Urine Glucose (UA) Negative (NEGATIVE) Urine Ketones Negative (NEGATIVE) Urine Blood 5+ (NEGATIVE) Urine Nitrite Negative (NEGATIVE) Urine Bilirubin Negative (NEGATIVE) Urine Urobilinogen Normal MG/DL (0.0-1.0) Urine Leukocyte Esterase Negative (NEGATIVE) Urine RBC 60-80 /HPF (0 - 0) Urine WBC 0 /HPF (0 - 0) Urine Squamous Epithelial Cells Occasional /LPF Urine Bacteria None /HPF (NONE) White Blood Count 3.7 K/UL (4.8-10.8) 3.4 K/UL (4.8-10.8) 2.4 K/UL (4.8-10.8) Red Blood Count 2.95 M/UL (4.70-6.10) 2.84 M/UL (4.70-6.10) 2.56 M/UL (4.70-6.10) Hemoglobin 8.6 G/DL (14.2-18.0) 8.2 G/DL (14.2-18.0) 7.4 G/DL (14.2-18.0) Hematocrit 25.9 % (42.0-52.0) 25.0 % (42.0-52.0) 22.3 % (42.0-52.0) Mean Corpuscular Volume 88 FL (80-99) 88 FL (80-99) 87 FL (80-99) Mean Corpuscular Hemoglobin 29.1 PG (27.0-31.0) 28.9 PG (27.0-31.0) 29.0 PG (27.0-31.0) Mean Corpuscular Hemoglobin Concent 33.0 G/DL (32.0-36.0) 32.9 G/DL (32.0-36.0) 33.2 G/DL (32.0-36.0) Red Cell Distribution Width 16.9 % (11.6-14.8) 16.8 % (11.6-14.8) 16.8 % (11.6-14.8) Platelet Count 105 K/UL (150-450) 96 K/UL (150-450) 86 K/UL (150-450) Mean Platelet Volume 6.3 FL (6.5-10.1) 6.4 FL (6.5-10.1) 6.5 FL (6.5-10.1) Neutrophils (%) (Auto) 67.9 % (45.0-75.0) % (45.0-75.0) % (45.0-75.0) Lymphocytes (%) (Auto) 16.1 % (20.0-45.0) % (20.0-45.0) % (20.0-45.0) Monocytes (%) (Auto) 13.6 % (1.0-10.0) % (1.0-10.0) % (1.0-10.0) Eosinophils (%) (Auto) 1.8 % (0.0-3.0) % (0.0-3.0) % (0.0-3.0) Basophils (%) (Auto) 0.6 % (0.0-2.0) % (0.0-2.0) % (0.0-2.0) Sodium Level 143 MMOL/L (136-145) 140 MMOL/L (136-145) 136 MMOL/L (136-145) Potassium Level 3.6 MMOL/L (3.5-5.1) 3.4 MMOL/L (3.5-5.1) 3.4 MMOL/L (3.5-5.1) Chloride Level 107 MMOL/L (98-107) 103 MMOL/L (98-107) 99 MMOL/L (98-107) Carbon Dioxide Level 29 MMOL/L (21-32) 29 MMOL/L (21-32) 31 MMOL/L (21-32) Anion Gap 7 mmol/L (5-15) 8 mmol/L (5-15) 6 mmol/L (5-15) Blood Urea Nitrogen 36 mg/dL (7-18) 32 mg/dL (7-18) 28 mg/dL (7-18) Creatinine 1.8 MG/DL (0.55-1.30) 1.6 MG/DL (0.55-1.30) 1.7 MG/DL (0.55-1.30) Estimat Glomerular Filtration Rate 38.8 mL/min (>60) 44.5 mL/min (>60) 41.5 mL/min (>60) Glucose Level 225 MG/DL (74-106) 69 MG/DL (74-106) 183 MG/DL (74-106) Uric Acid 4.8 MG/DL (2.6-7.2) 4.6 MG/DL (2.6-7.2) Calcium Level 9.0 MG/DL (8.5-10.1) 9.0 MG/DL (8.5-10.1) 8.2 MG/DL (8.5-10.1) Phosphorus Level 2.6 MG/DL (2.5-4.9) 2.2 MG/DL (2.5-4.9) Magnesium Level 1.7 MG/DL (1.8-2.4) 1.3 MG/DL (1.8-2.4) Total Bilirubin 0.5 MG/DL (0.2-1.0) 0.6 MG/DL (0.2-1.0) 0.6 MG/DL (0.2-1.0) Aspartate Amino Transf (AST/SGOT) 78 U/L (15-37) 58 U/L (15-37) 42 U/L (15-37) Alanine Aminotransferase (ALT/SGPT) 106 U/L (12-78) 76 U/L (12-78) 55 U/L (12-78) Alkaline Phosphatase 131 U/L (46-116) 108 U/L (46-116) 125 U/L (46-116) C-Reactive Protein, Quantitative 8.4 mg/dL (0.00-0.90) 9.1 mg/dL (0.00-0.90) Pro-B-Type Natriuretic Peptide 67207 pg/mL (0-125) 34913 pg/mL (0-125) Total Protein 5.6 G/DL (6.4-8.2) 5.2 G/DL (6.4-8.2) 4.8 G/DL (6.4-8.2) Albumin 2.1 G/DL (3.4-5.0) 2.1 G/DL (3.4-5.0) 1.9 G/DL (3.4-5.0) Globulin 3.5 g/dL 3.1 g/dL 2.9 g/dL Albumin/Globulin Ratio 0.6 (1.0-2.7) 0.7 (1.0-2.7) 0.7 (1.0-2.7) Random Vancomycin Level 8.0 ug/mL 11.4 ug/mL Differential Total Cells Counted 100 100 Neutrophils % (Manual) 60 % (45-75) 49 % (45-75) Lymphocytes % (Manual) 22 % (20-45) 43 % (20-45) Monocytes % (Manual) 15 % (1-10) 6 % (1-10) Eosinophils % (Manual) 2 % (0-3) 2 % (0-3) Basophils % (Manual) 1 % (0-2) 0 % (0-2) Band Neutrophils 0 % (0-8) 0 % (0-8) Platelet Estimate Decreased Decreased Platelet Morphology Normal Normal Hypochromasia 2+ Anisocytosis 1+ 1+ Test 03/06/19 08:00 White Blood Count 2.8 K/UL (4.8-10.8) Red Blood Count 2.70 M/UL (4.70-6.10) Hemoglobin 7.8 G/DL (14.2-18.0) Hematocrit 23.8 % (42.0-52.0) Mean Corpuscular Volume 88 FL (80-99) Mean Corpuscular Hemoglobin 28.9 PG (27.0-31.0) Mean Corpuscular Hemoglobin Concent 32.8 G/DL (32.0-36.0) Red Cell Distribution Width 16.4 % (11.6-14.8) Platelet Count 85 K/UL (150-450) Mean Platelet Volume 6.3 FL (6.5-10.1) Neutrophils (%) (Auto) % (45.0-75.0) Lymphocytes (%) (Auto) % (20.0-45.0) Monocytes (%) (Auto) % (1.0-10.0) Eosinophils (%) (Auto) % (0.0-3.0) Basophils (%) (Auto) % (0.0-2.0) Height (Feet): 6 Height (Inches): 0.00 Weight (Pounds): 227 Objective PHYSICAL EXAMINATION: GENERAL: NAD VITAL SIGNS: Have been reviewed. HEAD AND NECK: Shows no JVD. NG+, trach ++++ vent+ LUNGS: Coarse rhonchi. CARDIOVASCULAR: Shows regular S1 and S2 with no gallop or murmur. ABDOMEN: Soft. ++ peg EXTREMITIES: No pitting edema. Chan Hernandez MD Mar 06, 2019 09:08
[2019-03-06 09:15] LABS: PHOSPHORUS 2.5 MG/DL (2.5-4.9)
[2019-03-06] MEDS: Vancomycin 1gm/D5W 275ml IVPB SCH ×2 (09:30)
[2019-03-06] MEDS: Meropenem 1gm in NS 55ml IVPB SCH (09:30)
[2019-03-06] MEDS: Levemir Flexpen SUBQ SCH ×2 (09:32→20:40)
[2019-03-06] MEDS: Heparin 5000 units/ml inj SUBQ SCH ×2 (09:33→21:16)
--- NOTE | 2019-03-06 09:50 | GI Progress Note ---
Assessment/Plan Problems: (1) Anemia ICD Codes: D64.9 - Anemia, unspecified SNOMED: 623057649 (2) Anxiety ICD Codes: F41.9 - Anxiety disorder, unspecified SNOMED: 02338653 (3) Anemia ICD Codes: D64.9 - Anemia, unspecified SNOMED: 121332461 (4) Uncontrolled type 2 diabetes mellitus with chronic kidney disease ICD Codes: E11.22 - Type 2 diabetes mellitus with diabetic chronic kidney disease; E11.65 - Type 2 diabetes mellitus with hyperglycemia SNOMED: 10586132, 828909311, 630200170 Status: stable Status Narrative Discussed with Dr. Ricketts. Assessment/Plan 1. History of HIV. 2. Hypertension. 3. Vertigo. 4. History of headaches. 5. History of diabetes. 6. Respiratory failure 7. Dysphagia 8. ileus s/p PEG GTFs per RD GT site care daily/prn prn transfusions ppi electrolyte replacement follow labs The patient was seen and examined at bedside and all new and available data was reviewed in the patients chart. I agree with the above findings, impression and plan. (Patient seen earlier today. Signature stamp does not reflect patient encounter time.). - Kg Ricketts MD Subjective Subjective limited Objective Last 24 Hour Vital Signs Date Time Temp Pulse Resp B/P (MAP) Pulse Ox O2 Delivery O2 Flow Rate FiO2 03/06/19 09:14 100 03/06/19 09:00 89 136/53 03/06/19 09:00 89 136/53 03/06/19 07:00 89 21 136/53 (80) 100 03/06/19 07:00 24 Mechanical Ventilator 03/06/19 06:40 84 24 100 Mechanical Ventilator 40 03/06/19 06:38 86 25 40 03/06/19 06:35 85 24 100 Mechanical Ventilator 40 03/06/19 06:30 84 24 130/54 (79) 100 03/06/19 06:00 24 Mechanical Ventilator 03/06/19 06:00 87 22 124/48 (73) 100 03/06/19 05:41 144/48 03/06/19 05:40 144/48 03/06/19 05:30 86 24 124/48 (73) 100 03/06/19 05:00 86 24 144/48 (80) 100 03/06/19 05:00 24 Mechanical Ventilator 03/06/19 04:52 87 24 40 03/06/19 04:30 97 18 140/54 (82) 99 03/06/19 04:00 40 03/06/19 04:00 99.2 95 139/51 (80) 98 03/06/19 04:00 Mechanical Ventilator Mechanical Ventilator 03/06/19 04:00 24 Mechanical Ventilator 03/06/19 04:00 78 03/06/19 03:30 90 141/53 (82) 99 03/06/19 03:22 92 25 40 03/06/19 03:00 24 Mechanical Ventilator 03/06/19 03:00 92 21 136/55 (82) 98 03/06/19 02:30 91 24 141/59 (86) 99 03/06/19 02:00 24 Mechanical Ventilator 03/06/19 02:00 96 19 149/58 (88) 99 03/06/19 01:30 94 24 155/64 (94) 99 03/06/19 01:21 90 24 98 Mechanical Ventilator 40 03/06/19 01:07 78 24 100 Mechanical Ventilator 40 03/06/19 01:06 78 24 40 03/06/19 01:00 24 Mechanical Ventilator 03/06/19 01:00 79 24 141/62 (88) 100 03/06/19 00:30 78 24 149/55 (86) 99 03/06/19 00:00 40 03/06/19 00:00 78 03/06/19 00:00 Mechanical Ventilator Mechanical Ventilator 03/06/19 00:00 24 Mechanical Ventilator 03/06/19 00:00 99.3 78 25 149/57 (87) 100 03/05/19 23:30 78 24 148/56 (86) 98 03/05/19 23:12 80 25 40 03/05/19 23:00 78 24 142/53 (82) 98 03/05/19 23:00 24 Mechanical Ventilator 03/05/19 22:49 139/58 03/05/19 22:49 139/58 03/05/19 22:30 80 22 139/58 (85) 99 03/05/19 22:00 76 24 131/50 (77) 99 03/05/19 22:00 24 Mechanical Ventilator 03/05/19 21:41 99.2 03/05/19 21:30 77 21 141/52 (81) 98 7/15/19 21:28 78 24 40 03/05/19 21:11 20 Mechanical Ventilator 03/05/19 21:00 78 15 131/68 (89) 99 03/05/19 20:58 75 135/51 03/05/19 20:30 74 24 135/51 (79) 98 03/05/19 20:00 Mechanical Ventilator Mechanical Ventilator 03/05/19 20:00 76 03/05/19 20:00 40 03/05/19 20:00 99.2 76 24 121/59 (79) 97 03/05/19 19:30 78 12 131/58 (82) 99 03/05/19 19:12 76 25 98 Mechanical Ventilator 40 03/05/19 19:01 76 24 40 03/05/19 19:00 76 24 99 Mechanical Ventilator 40 03/05/19 19:00 24 Mechanical Ventilator 40 03/05/19 19:00 76 19 149/53 (85) 99 03/05/19 18:00 77 21 127/72 (90) 99 03/05/19 18:00 24 Mechanical Ventilator 40 03/05/19 17:30 79 23 147/61 (89) 100 03/05/19 17:00 99.5 80 24 131/53 (79) 100 03/05/19 17:00 24 Mechanical Ventilator 40 03/05/19 17:00 72 24 40 03/05/19 16:30 74 20 142/58 (86) 99 03/05/19 16:00 70 03/05/19 16:00 Mechanical Ventilator Mechanical Ventilator 03/05/19 16:00 24 Mechanical Ventilator 40 03/05/19 16:00 78 22 147/59 (88) 99 03/05/19 16:00 40 03/05/19 15:30 71 22 136/48 (77) 98 03/05/19 15:01 74 24 40 03/05/19 15:00 24 Mechanical Ventilator 40 03/05/19 15:00 73 19 138/48 (78) 100 03/05/19 14:30 71 21 127/48 (74) 99 03/05/19 14:00 24 Mechanical Ventilator 40 03/05/19 14:00 73 24 131/48 (75) 98 03/05/19 13:30 76 24 137/54 (81) 98 03/05/19 13:10 82 24 100 Mechanical Ventilator 40 03/05/19 13:10 140/49 03/05/19 13:08 140/49 03/05/19 13:07 24 Mechanical Ventilator 40 03/05/19 13:02 77 21 100 03/05/19 13:01 77 24 100 03/05/19 13:00 76 22 141/49 (79) 99 03/05/19 13:00 24 Mechanical Ventilator 40 03/05/19 12:59 82 24 40 03/05/19 12:58 82 24 98 Mechanical Ventilator 40 03/05/19 12:30 76 22 149/53 (85) 100 03/05/19 12:00 40 03/05/19 12:00 99.0 78 25 139/56 (83) 100 03/05/19 12:00 72 03/05/19 12:00 24 Mechanical Ventilator 40 03/05/19 12:00 Mechanical Ventilator Mechanical Ventilator 03/05/19 11:00 74 23 143/54 (83) 100 03/05/19 11:00 24 Mechanical Ventilator 40 03/05/19 11:00 74 25 40 03/05/19 10:00 73 24 140/55 (83) 100 03/05/19 10:00 24 Mechanical Ventilator 40 Intake and Output 03/05/19 03/06/19 19:00 07:00 Intake Total 1129.416 ml 850 ml Output Total 2120 ml 1370 ml Balance -990.584 ml -520 ml Free Water 100 ml 150 ml IV Total 857.416 ml 184 ml Tube Feeding 172 ml 516 ml Output Urine Total 2020 ml 1370 ml Stool Total 100 ml Laboratory Tests Test 03/06/19 05:00 03/06/19 08:00 White Blood Count 2.4 K/UL (4.8-10.8) L 2.8 K/UL (4.8-10.8) L Red Blood Count 2.56 M/UL (4.70-6.10) L 2.70 M/UL (4.70-6.10) L Hemoglobin 7.4 G/DL (14.2-18.0) L 7.8 G/DL (14.2-18.0) L Hematocrit 22.3 % (42.0-52.0) L 23.8 % (42.0-52.0) L Mean Corpuscular Volume 87 FL (80-99) 88 FL (80-99) Mean Corpuscular Hemoglobin 29.0 PG (27.0-31.0) 28.9 PG (27.0-31.0) Mean Corpuscular Hemoglobin Concent 33.2 G/DL (32.0-36.0) 32.8 G/DL (32.0-36.0) Red Cell Distribution Width 16.8 % (11.6-14.8) H 16.4 % (11.6-14.8) H Platelet Count 86 K/UL (150-450) L 85 K/UL (150-450) L Mean Platelet Volume 6.5 FL (6.5-10.1) 6.3 FL (6.5-10.1) L Neutrophils (%) (Auto) % (45.0-75.0) % (45.0-75.0) Lymphocytes (%) (Auto) % (20.0-45.0) % (20.0-45.0) Monocytes (%) (Auto) % (1.0-10.0) % (1.0-10.0) Eosinophils (%) (Auto) % (0.0-3.0) % (0.0-3.0) Basophils (%) (Auto) % (0.0-2.0) % (0.0-2.0) Differential Total Cells Counted 100 100 Neutrophils % (Manual) 49 % (45-75) 49 % (45-75) Lymphocytes % (Manual) 43 % (20-45) 42 % (20-45) Monocytes % (Manual) 6 % (1-10) 7 % (1-10) Eosinophils % (Manual) 2 % (0-3) 2 % (0-3) Basophils % (Manual) 0 % (0-2) 0 % (0-2) Band Neutrophils 0 % (0-8) 0 % (0-8) Platelet Estimate Decreased L Decreased L Platelet Morphology Normal Normal Anisocytosis 1+ 1+ Sodium Level 136 MMOL/L (136-145) Potassium Level 3.4 MMOL/L (3.5-5.1) L Chloride Level 99 MMOL/L (98-107) Carbon Dioxide Level 31 MMOL/L (21-32) Anion Gap 6 mmol/L (5-15) Blood Urea Nitrogen 28 mg/dL (7-18) H Creatinine 1.7 MG/DL (0.55-1.30) H Estimat Glomerular Filtration Rate 41.5 mL/min (>60) Glucose Level 183 MG/DL (74-106) #H Calcium Level 8.2 MG/DL (8.5-10.1) L Total Bilirubin 0.6 MG/DL (0.2-1.0) Aspartate Amino Transf (AST/SGOT) 42 U/L (15-37) H Alanine Aminotransferase (ALT/SGPT) 55 U/L (12-78) Alkaline Phosphatase 125 U/L (46-116) H Total Protein 4.8 G/DL (6.4-8.2) L Albumin 1.9 G/DL (3.4-5.0) L Globulin 2.9 g/dL Albumin/Globulin Ratio 0.7 (1.0-2.7) L Phosphorus Level 2.5 MG/DL (2.5-4.9) Magnesium Level 1.7 MG/DL (1.8-2.4) L Height (Feet): 6 Height (Inches): 0.00 Weight (Pounds): 227 General Appearance: no apparent distress Cardiovascular: normal rate Respiratory/Chest: normal breath sounds, no respiratory distress Abdominal Exam: normal bowel sounds, non tender, soft, GT site - c/d/i Extremities: non-tender Hortencia Zheng NP Mar 06, 2019 09:50
--- NOTE | 2019-03-06 10:00 | NUR ---
NURSE NOTES: Fentanyl drip has been maintained at 200mcg/hr to maintain RASS score of -2 light sedation. VS stable. AM meds were administered including PRN Ativan 2mg IVP as per PRN order for anxiety. Pt has been cleaned and repositioned. Oral care was done. Pt was suctioned, secretion is very minimal.
--- NOTE | 2019-03-06 11:00 | NUR ---
NURSE NOTES: Fentanyl drip remains 200mcg/hr to maintain RASS score of -2 light sedation. VS stable. Pt is resting in no apparent distress.
--- NOTE | 2019-03-06 12:00 | NUR ---
NURSE NOTES: Fentanyl drip is maintained at 200mcg/hr to maintain RASS score of -2 light sedation. VS stable. Pt is tolerating GT feeding at goal rate with no residual noted. Simon continues to drain clear/yellow urine at 120-200ml hourly. Oral care was done. Pt was repositioned.
--- NOTE | 2019-03-06 12:28 | Cardiac Electrophysiology PN ---
Assessment/Plan Assessment/Plan 1. Non-ST elevation myocardial infarction with peak troponin of more than 10, down to 3.[address]-T wave abnormalities. Continue Lipitor, Imdur and metoprolol Not a candidate for Cardiac catheterization 2. Hypertension. Metoprolol 100 bid, Isordil 20 q6 , Clonidine 0.1 bid, Lasix 40 iv daily, Metolazone 5, Norvasc 10 daily and hydralazine 50 q 8 hr On Clonidine 0.2 q 8hrs 3. Respiratory failure due to Multilobar Pneumonia. Extubated 02/19/19. Reintubated 02/20/19 S/P Tracheostomy 03/02/19 Being weaned again on CPAP 4. Hyperlipidemia. On Lipitor. 5. Human immunodeficiency virus. On anti-retroviral therapy with undetectable viral load. 6. ARF Cr 3 7. Bleeding from ETT and NG tube. S/P PRBC. Off Aspirin and Lovenox No further bleeding 8. Dysphagia. S/P PEG 03/05/19 DW RN Subjective Subjective In ICU on the vent via Tracheostomy. S/p PEG yesterday. On CPAP Objective Last 24 Hour Vital Signs Date Time Temp Pulse Resp B/P (MAP) Pulse Ox O2 Delivery O2 Flow Rate FiO2 03/06/19 10:37 86 30 40 03/06/19 09:14 100 03/06/19 09:00 89 136/53 03/06/19 09:00 89 136/53 03/06/19 08:40 105 25 40 03/06/19 07:00 89 21 136/53 (80) 100 03/06/19 07:00 24 Mechanical Ventilator 03/06/19 06:40 84 24 100 Mechanical Ventilator 40 03/06/19 06:38 86 25 40 03/06/19 06:35 85 24 100 Mechanical Ventilator 40 03/06/19 06:30 84 24 130/54 (79) 100 03/06/19 06:00 24 Mechanical Ventilator 03/06/19 06:00 87 22 124/48 (73) 100 03/06/19 05:41 144/48 03/06/19 05:40 144/48 03/06/19 05:30 86 24 124/48 (73) 100 03/06/19 05:00 86 24 144/48 (80) 100 03/06/19 05:00 24 Mechanical Ventilator 03/06/19 04:52 87 24 40 03/06/19 04:30 97 18 140/54 (82) 99 03/06/19 04:00 40 03/06/19 04:00 99.2 95 139/51 (80) 98 03/06/19 04:00 Mechanical Ventilator Mechanical Ventilator 03/06/19 04:00 24 Mechanical Ventilator 03/06/19 04:00 78 03/06/19 03:30 90 141/53 (82) 99 03/06/19 03:22 92 25 40 03/06/19 03:00 24 Mechanical Ventilator 03/06/19 03:00 92 21 136/55 (82) 98 03/06/19 02:30 91 24 141/59 (86) 99 03/06/19 02:00 24 Mechanical Ventilator 03/06/19 02:00 96 19 149/58 (88) 99 03/06/19 01:30 94 24 155/64 (94) 99 03/06/19 01:21 90 24 98 Mechanical Ventilator 40 03/06/19 01:07 78 24 100 Mechanical Ventilator 40 03/06/19 01:06 78 24 40 03/06/19 01:00 24 Mechanical Ventilator 03/06/19 01:00 79 24 141/62 (88) 100 03/06/19 00:30 78 24 149/55 (86) 99 03/06/19 00:00 40 03/06/19 00:00 78 03/06/19 00:00 Mechanical Ventilator Mechanical Ventilator 03/06/19 00:00 24 Mechanical Ventilator 03/06/19 00:00 99.3 78 25 149/57 (87) 100 03/05/19 23:30 78 24 148/56 (86) 98 03/05/19 23:12 80 25 40 03/05/19 23:00 78 24 142/53 (82) 98 03/05/19 23:00 24 Mechanical Ventilator 03/05/19 22:49 139/58 03/05/19 22:49 139/58 03/05/19 22:30 80 22 139/58 (85) 99 03/05/19 22:00 76 24 131/50 (77) 99 03/05/19 22:00 24 Mechanical Ventilator 03/05/19 21:41 99.2 03/05/19 21:30 77 21 141/52 (81) 98 03/05/19 21:28 78 24 40 03/05/19 21:11 20 Mechanical Ventilator 03/05/19 21:00 78 15 131/68 (89) 99 03/05/19 20:58 75 135/51 03/05/19 20:30 74 24 135/51 (79) 98 03/05/19 20:00 Mechanical Ventilator Mechanical Ventilator 03/05/19 20:00 76 03/05/19 20:00 40 03/05/19 20:00 99.2 76 24 121/59 (79) 97 03/05/19 19:30 78 12 131/58 (82) 99 03/05/19 19:12 76 25 98 Mechanical Ventilator 40 03/05/19 19:01 76 24 40 03/05/19 19:00 76 24 99 Mechanical Ventilator 40 03/05/19 19:00 24 Mechanical Ventilator 40 03/05/19 19:00 76 19 149/53 (85) 99 03/05/19 18:00 77 21 127/72 (90) 99 03/05/19 18:00 24 Mechanical Ventilator 40 03/05/19 17:30 79 23 147/61 (89) 100 03/05/19 17:00 99.5 80 24 131/53 (79) 100 03/05/19 17:00 24 Mechanical Ventilator 40 03/05/19 17:00 72 24 40 03/05/19 16:30 74 20 142/58 (86) 99 03/05/19 16:00 70 03/05/19 16:00 Mechanical Ventilator Mechanical Ventilator 03/05/19 16:00 24 Mechanical Ventilator 40 03/05/19 16:00 78 22 147/59 (88) 99 03/05/19 16:00 40 03/05/19 15:30 71 22 136/48 (77) 98 03/05/19 15:01 74 24 40 03/05/19 15:00 24 Mechanical Ventilator 40 03/05/19 15:00 73 19 138/48 (78) 100 03/05/19 14:30 71 21 127/48 (74) 99 03/05/19 14:00 24 Mechanical Ventilator 40 03/05/19 14:00 73 24 131/48 (75) 98 03/05/19 13:30 76 24 137/54 (81) 98 03/05/19 13:10 82 24 100 Mechanical Ventilator 40 03/05/19 13:10 140/49 03/05/19 13:08 140/49 03/05/19 13:07 24 Mechanical Ventilator 40 03/05/19 13:02 77 21 100 03/05/19 13:01 77 24 100 03/05/19 13:00 76 22 141/49 (79) 99 03/05/19 13:00 24 Mechanical Ventilator 40 03/05/19 12:59 82 24 40 03/05/19 12:58 82 24 98 Mechanical Ventilator 40 03/05/19 12:30 76 22 149/53 (85) 100 Intake and Output 03/05/19 03/06/19 19:00 07:00 Intake Total 1129.416 ml 850 ml Output Total 2120 ml 1370 ml Balance -990.584 ml -520 ml Free Water 100 ml 150 ml IV Total 857.416 ml 184 ml Tube Feeding 172 ml 516 ml Output Urine Total 2020 ml 1370 ml Stool Total 100 ml Laboratory Tests Test 03/06/19 05:00 03/06/19 08:00 White Blood Count 2.4 K/UL (4.8-10.8) L 2.8 K/UL (4.8-10.8) L Red Blood Count 2.56 M/UL (4.70-6.10) L 2.70 M/UL (4.70-6.10) L Hemoglobin 7.4 G/DL (14.2-18.0) L 7.8 G/DL (14.2-18.0) L Hematocrit 22.3 % (42.0-52.0) L 23.8 % (42.0-52.0) L Mean Corpuscular Volume 87 FL (80-99) 88 FL (80-99) Mean Corpuscular Hemoglobin 29.0 PG (27.0-31.0) 28.9 PG (27.0-31.0) Mean Corpuscular Hemoglobin Concent 33.2 G/DL (32.0-36.0) 32.8 G/DL (32.0-36.0) Red Cell Distribution Width 16.8 % (11.6-14.8) H 16.4 % (11.6-14.8) H Platelet Count 86 K/UL (150-450) L 85 K/UL (150-450) L Mean Platelet Volume 6.5 FL (6.5-10.1) 6.3 FL (6.5-10.1) L Neutrophils (%) (Auto) % (45.0-75.0) % (45.0-75.0) Lymphocytes (%) (Auto) % (20.0-45.0) % (20.0-45.0) Monocytes (%) (Auto) % (1.0-10.0) % (1.0-10.0) Eosinophils (%) (Auto) % (0.0-3.0) % (0.0-3.0) Basophils (%) (Auto) % (0.0-2.0) % (0.0-2.0) Differential Total Cells Counted 100 100 Neutrophils % (Manual) 49 % (45-75) 49 % (45-75) Lymphocytes % (Manual) 43 % (20-45) 42 % (20-45) Monocytes % (Manual) 6 % (1-10) 7 % (1-10) Eosinophils % (Manual) 2 % (0-3) 2 % (0-3) Basophils % (Manual) 0 % (0-2) 0 % (0-2) Band Neutrophils 0 % (0-8) 0 % (0-8) Platelet Estimate Decreased L Decreased L Platelet Morphology Normal Normal Anisocytosis 1+ 1+ Sodium Level 136 MMOL/L (136-145) Potassium Level 3.4 MMOL/L (3.5-5.1) L Chloride Level 99 MMOL/L (98-107) Carbon Dioxide Level 31 MMOL/L (21-32) Anion Gap 6 mmol/L (5-15) Blood Urea Nitrogen 28 mg/dL (7-18) H Creatinine 1.7 MG/DL (0.55-1.30) H Estimat Glomerular Filtration Rate 41.5 mL/min (>60) Glucose Level 183 MG/DL (74-106) #H Calcium Level 8.2 MG/DL (8.5-10.1) L Total Bilirubin 0.6 MG/DL (0.2-1.0) Aspartate Amino Transf (AST/SGOT) 42 U/L (15-37) H Alanine Aminotransferase (ALT/SGPT) 55 U/L (12-78) Alkaline Phosphatase 125 U/L (46-116) H Total Protein 4.8 G/DL (6.4-8.2) L Albumin 1.9 G/DL (3.4-5.0) L Globulin 2.9 g/dL Albumin/Globulin Ratio 0.7 (1.0-2.7) L Phosphorus Level 2.5 MG/DL (2.5-4.9) Magnesium Level 1.7 MG/DL (1.8-2.4) L Microbiology Date/Time Source Procedure Growth Status 03/03/19 12:40 Blood Blood Culture - Preliminary NO GROWTH AFTER 48 HOURS Resulted 03/03/19 18:00 Indwelling Cath Urine Culture - Final NO GROWTH AFTER 48 HOURS Complete Objective HEAD AND NECK: No JVD. S/P tracheostomy with NG tube LUNGS: Coarse rhonchi. CARDIOVASCULAR: Regular S1 and S2 with no gallop or murmur. ABDOMEN: Soft.PEG in place EXTREMITIES: 1 plus pitting edema. Murray Francois MD Mar 06, 2019 12:28
[2019-03-06] MEDS: Midazolam 2mg/2ml Inj IVP PRN (13:19)
--- NOTE | 2019-03-06 13:24 | Nephrology Progress Note ---
Assessment/Plan Problem List: (1) ISH (acute kidney injury) Assessment: Cr lowering (2) HIV (human immunodeficiency virus infection) (3) NSTEMI (non-ST elevated myocardial infarction) Assessment: troponin decreasing (4) Hypoxia (5) Anemia (6) Diabetes Assessment Acute Renal failure- Cr leveling- Urine out put is good Acidosis improved Acute respiratory failure- Require intubation and Mechanical Ventilation- Anemia- Elevated troponin / SC HTN DM HIV Antibody + Plan Trach 03/02 mag and K and Phos supplement as needed adjust BP meds on feeding IV protonix transfusiosn as needed BP med adjustment UA and urine studies Avoid Nephrotoxics as possible Monitor renal parameters keep BP and BS in check Per orders No HD at this time Kidney RADHA noted adjust BP meds add Isordil Subjective ROS Limited/Unobtainable: Yes Objective Objective Last 24 Hour Vital Signs Date Time Temp Pulse Resp B/P (MAP) Pulse Ox O2 Delivery O2 Flow Rate FiO2 03/06/19 13:14 136/53 03/06/19 13:13 136/53 03/06/19 12:46 101 27 99 Mechanical Ventilator 40 03/06/19 12:44 96 29 40 03/06/19 12:40 100 33 99 Mechanical Ventilator 40 03/06/19 10:37 86 30 40 03/06/19 09:14 100 03/06/19 09:00 89 136/53 03/06/19 09:00 89 136/53 03/06/19 08:40 105 25 40 03/06/19 07:00 89 21 136/53 (80) 100 03/06/19 07:00 24 Mechanical Ventilator 03/06/19 06:40 84 24 100 Mechanical Ventilator 40 03/06/19 06:38 86 25 40 03/06/19 06:35 85 24 100 Mechanical Ventilator 40 03/06/19 06:30 84 24 130/54 (79) 100 03/06/19 06:00 24 Mechanical Ventilator 03/06/19 06:00 87 22 124/48 (73) 100 03/06/19 05:41 144/48 03/06/19 05:40 144/48 03/06/19 05:30 86 24 124/48 (73) 100 03/06/19 05:00 86 24 144/48 (80) 100 03/06/19 05:00 24 Mechanical Ventilator 03/06/19 04:52 87 24 40 7/16/19 04:30 97 18 140/54 (82) 99 03/06/19 04:00 40 03/06/19 04:00 99.2 95 139/51 (80) 98 03/06/19 04:00 Mechanical Ventilator Mechanical Ventilator 03/06/19 04:00 24 Mechanical Ventilator 03/06/19 04:00 78 03/06/19 03:30 90 141/53 (82) 99 03/06/19 03:22 92 25 40 03/06/19 03:00 24 Mechanical Ventilator 03/06/19 03:00 92 21 136/55 (82) 98 03/06/19 02:30 91 24 141/59 (86) 99 03/06/19 02:00 24 Mechanical Ventilator 03/06/19 02:00 96 19 149/58 (88) 99 03/06/19 01:30 94 24 155/64 (94) 99 03/06/19 01:21 90 24 98 Mechanical Ventilator 40 03/06/19 01:07 78 24 100 Mechanical Ventilator 40 03/06/19 01:06 78 24 40 03/06/19 01:00 24 Mechanical Ventilator 03/06/19 01:00 79 24 141/62 (88) 100 03/06/19 00:30 78 24 149/55 (86) 99 03/06/19 00:00 40 03/06/19 00:00 78 03/06/19 00:00 Mechanical Ventilator Mechanical Ventilator 03/06/19 00:00 24 Mechanical Ventilator 03/06/19 00:00 99.3 78 25 149/57 (87) 100 03/05/19 23:30 78 24 148/56 (86) 98 03/05/19 23:12 80 25 40 03/05/19 23:00 78 24 142/53 (82) 98 03/05/19 23:00 24 Mechanical Ventilator 03/05/19 22:49 139/58 03/05/19 22:49 139/58 03/05/19 22:30 80 22 139/58 (85) 99 03/05/19 22:00 76 24 131/50 (77) 99 03/05/19 22:00 24 Mechanical Ventilator 03/05/19 21:41 99.2 03/05/19 21:30 77 21 141/52 (81) 98 03/05/19 21:28 78 24 40 03/05/19 21:11 20 Mechanical Ventilator 03/05/19 21:00 78 15 131/68 (89) 99 03/05/19 20:58 75 135/51 03/05/19 20:30 74 24 135/51 (79) 98 03/05/19 20:00 Mechanical Ventilator Mechanical Ventilator 03/05/19 20:00 76 03/05/19 20:00 40 03/05/19 20:00 99.2 76 24 121/59 (79) 97 03/05/19 19:30 78 12 131/58 (82) 99 03/05/19 19:12 76 25 98 Mechanical Ventilator 40 03/05/19 19:01 76 24 40 03/05/19 19:00 76 24 99 Mechanical Ventilator 40 03/05/19 19:00 24 Mechanical Ventilator 40 03/05/19 19:00 76 19 149/53 (85) 99 03/05/19 18:00 77 21 127/72 (90) 99 03/05/19 18:00 24 Mechanical Ventilator 40 03/05/19 17:30 79 23 147/61 (89) 100 03/05/19 17:00 99.5 80 24 131/53 (79) 100 03/05/19 17:00 24 Mechanical Ventilator 40 03/05/19 17:00 72 24 40 03/05/19 16:30 74 20 142/58 (86) 99 03/05/19 16:00 70 03/05/19 16:00 Mechanical Ventilator Mechanical Ventilator 03/05/19 16:00 24 Mechanical Ventilator 40 03/05/19 16:00 78 22 147/59 (88) 99 03/05/19 16:00 40 03/05/19 15:30 71 22 136/48 (77) 98 03/05/19 15:01 74 24 40 03/05/19 15:00 24 Mechanical Ventilator 40 03/05/19 15:00 73 19 138/48 (78) 100 03/05/19 14:30 71 21 127/48 (74) 99 03/05/19 14:00 24 Mechanical Ventilator 40 03/05/19 14:00 73 24 131/48 (75) 98 03/05/19 13:30 76 24 137/54 (81) 98 Intake and Output 03/05/19 03/06/19 19:00 07:00 Intake Total 1129.416 ml 850 ml Output Total 2120 ml 1370 ml Balance -990.584 ml -520 ml Free Water 100 ml 150 ml IV Total 857.416 ml 184 ml Tube Feeding 172 ml 516 ml Output Urine Total 2020 ml 1370 ml Stool Total 100 ml Laboratory Tests 03/06/19 05:00: White Blood Count 2.4L, Red Blood Count 2.56L, Hemoglobin 7.4L, Hematocrit 22.3L , Mean Corpuscular Volume 87, Mean Corpuscular Hemoglobin 29.0, Mean Corpuscular Hemoglobin Concent 33.2, Red Cell Distribution Width 16.8H, Platelet Count 86L, Mean Platelet Volume 6.5, Neutrophils (%) (Auto) , Lymphocytes (%) (Auto) , Monocytes (%) (Auto) , Eosinophils (%) (Auto) , Basophils (%) (Auto) , Differential Total Cells Counted 100, Neutrophils % ( Manual) 49, Lymphocytes % (Manual) 43, Monocytes % (Manual) 6, Eosinophils % ( Manual) 2, Basophils % (Manual) 0, Band Neutrophils 0, Platelet Estimate DecreasedL, Platelet Morphology Normal, Anisocytosis 1+, Sodium Level 136, Potassium Level 3.4L, Chloride Level 99, Carbon Dioxide Level 31, Anion Gap 6, Blood Urea Nitrogen 28H, Creatinine 1.7H, Estimat Glomerular Filtration Rate 41.5, Glucose Level 183#H, Calcium Level 8.2L, Total Bilirubin 0.6, Aspartate Amino Transf (AST/SGOT) 42H, Alanine Aminotransferase (ALT/SGPT) 55, Alkaline Phosphatase 125H, Total Protein 4.8L, Albumin 1.9L, Globulin 2.9, Albumin/ Globulin Ratio 0.7L 03/06/19 08:00: White Blood Count 2.8L, Red Blood Count 2.70L, Hemoglobin 7.8L, Hematocrit 23.8L , Mean Corpuscular Volume 88, Mean Corpuscular Hemoglobin 28.9, Mean Corpuscular Hemoglobin Concent 32.8, Red Cell Distribution Width 16.4H, Platelet Count 85L, Mean Platelet Volume 6.3L, Neutrophils (%) (Auto) , Lymphocytes (%) (Auto) , Monocytes (%) (Auto) , Eosinophils (%) (Auto) , Basophils (%) (Auto) , Differential Total Cells Counted 100, Neutrophils % ( Manual) 49, Lymphocytes % (Manual) 42, Monocytes % (Manual) 7, Eosinophils % ( Manual) 2, Basophils % (Manual) 0, Band Neutrophils 0, Platelet Estimate DecreasedL, Platelet Morphology Normal, Anisocytosis 1+, Phosphorus Level 2.5, Magnesium Level 1.7L Height (Feet): 6 Height (Inches): 0.00 Weight (Pounds): 227 General Appearance: no apparent distress Cardiovascular: tachycardia Respiratory/Chest: decreased breath sounds Abdomen: distended Objective no change Mike Mcdonald MD Mar 06, 2019 13:24
--- NOTE | 2019-03-06 13:48 | Infectious Diseases Prog Note ---
Assessment/Plan Assessment/Plan A) 1) pneumonia - ? aspiration/hcap, ? CAP, ? pneumocystis pna, ? fungal ( cryptococcus), sepsis, leukocytosis, ? 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, on anti-retroviral treatment 4) rule out TB pna, in isolation - afb smear on bronchoscopy is negative, TB spot negative 5) pmh noted - hypertension, ckd, anemia, dm, cva, tia, migraines 6) allergies - nkda, sh-negative, fh-nc, mar noted 7) d/w RN P) 1) vancomycin, diflucan, meropenem - s/p pneumocystis treatment - f/u cultures negativwe - s/p trach - bactrim pcp prophylaxis 2) leukocytosis better, monitor labs and chest x-ray, no fevers, no pressors , lgt noted 3) diarrhea but on stool softeners 4) weaning per pulmonary medicine 5) icu supportive care, vent support 6) skin care per protocol 7) anti-retroviral treatment for HIV 8) d/w pharmacy Subjective Constitutional: Reports: fever - lgt, fatigue, other HEENT: Reports: congestion Respiratory: Reports: shortness of breath Cardiovascular: Reports: other - no pressors Gastrointestinal/Abdominal: Reports: diarrhea, other - + rectal tube ; Denies: nausea, vomiting Genitourinary: Reports: other - + smith Neurologic: Denies: headache Psychiatric: Denies: depression Skin: Denies: rash Hematologic: Denies: bleeding Musculoskeletal: Denies: pain Allergies: Coded Allergies: No Known Allergies (Unverified , 02/05/13) Objective Vital Signs Last 24 Hour Vital Signs Date Time Temp Pulse Resp B/P (MAP) Pulse Ox O2 Delivery O2 Flow Rate FiO2 03/06/19 13:14 136/53 03/06/19 13:13 136/53 03/06/19 12:46 101 27 99 Mechanical Ventilator 40 03/06/19 12:44 96 29 40 03/06/19 12:40 100 33 99 Mechanical Ventilator 40 03/06/19 10:37 86 30 40 03/06/19 09:14 100 03/06/19 09:00 89 136/53 03/06/19 09:00 89 136/53 03/06/19 08:40 105 25 40 03/06/19 07:00 89 21 136/53 (80) 100 03/06/19 07:00 24 Mechanical Ventilator 03/06/19 06:40 84 24 100 Mechanical Ventilator 40 03/06/19 06:38 86 25 40 03/06/19 06:35 85 24 100 Mechanical Ventilator 40 03/06/19 06:30 84 24 130/54 (79) 100 03/06/19 06:00 24 Mechanical Ventilator 03/06/19 06:00 87 22 124/48 (73) 100 03/06/19 05:41 144/48 03/06/19 05:40 144/48 03/06/19 05:30 86 24 124/48 (73) 100 03/06/19 05:00 86 24 144/48 (80) 100 03/06/19 05:00 24 Mechanical Ventilator 03/06/19 04:52 87 24 40 03/06/19 04:30 97 18 140/54 (82) 99 03/06/19 04:00 40 03/06/19 04:00 99.2 95 139/51 (80) 98 03/06/19 04:00 Mechanical Ventilator Mechanical Ventilator 03/06/19 04:00 24 Mechanical Ventilator 03/06/19 04:00 78 03/06/19 03:30 90 141/53 (82) 99 03/06/19 03:22 92 25 40 03/06/19 03:00 24 Mechanical Ventilator 03/06/19 03:00 92 21 136/55 (82) 98 03/06/19 02:30 91 24 141/59 (86) 99 03/06/19 02:00 24 Mechanical Ventilator 03/06/19 02:00 96 19 149/58 (88) 99 03/06/19 01:30 94 24 155/64 (94) 99 03/06/19 01:21 90 24 98 Mechanical Ventilator 40 03/06/19 01:07 78 24 100 Mechanical Ventilator 40 03/06/19 01:06 78 24 40 03/06/19 01:00 24 Mechanical Ventilator 03/06/19 01:00 79 24 141/62 (88) 100 03/06/19 00:30 78 24 149/55 (86) 99 03/06/19 00:00 40 03/06/19 00:00 78 03/06/19 00:00 Mechanical Ventilator Mechanical Ventilator 03/06/19 00:00 24 Mechanical Ventilator 03/06/19 00:00 99.3 78 25 149/57 (87) 100 03/05/19 23:30 78 24 148/56 (86) 98 03/05/19 23:12 80 25 40 03/05/19 23:00 78 24 142/53 (82) 98 03/05/19 23:00 24 Mechanical Ventilator 03/05/19 22:49 139/58 03/05/19 22:49 139/58 03/05/19 22:30 80 22 139/58 (85) 99 03/05/19 22:00 76 24 131/50 (77) 99 03/05/19 22:00 24 Mechanical Ventilator 03/05/19 21:41 99.2 03/05/19 21:30 77 21 141/52 (81) 98 03/05/19 21:28 78 24 40 03/05/19 21:11 20 Mechanical Ventilator 03/05/19 21:00 78 15 131/68 (89) 99 03/05/19 20:58 75 135/51 03/05/19 20:30 74 24 135/51 (79) 98 03/05/19 20:00 Mechanical Ventilator Mechanical Ventilator 03/05/19 20:00 76 03/05/19 20:00 40 03/05/19 20:00 99.2 76 24 121/59 (79) 97 03/05/19 19:30 78 12 131/58 (82) 99 03/05/19 19:12 76 25 98 Mechanical Ventilator 40 03/05/19 19:01 76 24 40 03/05/19 19:00 76 24 99 Mechanical Ventilator 40 03/05/19 19:00 24 Mechanical Ventilator 40 03/05/19 19:00 76 19 149/53 (85) 99 03/05/19 18:00 77 21 127/72 (90) 99 03/05/19 18:00 24 Mechanical Ventilator 40 03/05/19 17:30 79 23 147/61 (89) 100 03/05/19 17:00 99.5 80 24 131/53 (79) 100 03/05/19 17:00 24 Mechanical Ventilator 40 03/05/19 17:00 72 24 40 7/15/19 16:30 74 20 142/58 (86) 99 03/05/19 16:00 70 03/05/19 16:00 Mechanical Ventilator Mechanical Ventilator 03/05/19 16:00 24 Mechanical Ventilator 40 03/05/19 16:00 78 22 147/59 (88) 99 03/05/19 16:00 40 03/05/19 15:30 71 22 136/48 (77) 98 03/05/19 15:01 74 24 40 03/05/19 15:00 24 Mechanical Ventilator 40 03/05/19 15:00 73 19 138/48 (78) 100 03/05/19 14:30 71 21 127/48 (74) 99 03/05/19 14:00 24 Mechanical Ventilator 40 03/05/19 14:00 73 24 131/48 (75) 98 Height (Feet): 6 Height (Inches): 0.00 Weight (Pounds): 227 General Appearance: no acute distress HEENT: normocephalic, atraumatic, anicteric Respiratory/Chest: crackles/rales, rhonchi - bilaterally Cardiovascular: normal rate, regular rhythm, no gallop/murmur, no JVD Abdomen: normal bowel sounds, soft, non tender, no organomegaly, non distended Genitourinary: other - + smith - urine clear Extremities: no cyanosis Skin: no rash Neurologic/Psychiatric: 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 Enteric tube courses past the diaphragm and out of the field of view. Lungs/pleura: Slightly decreased but persistent patchy consolidations in the right lung. Slightly decreased left perihilar opacities/consolidations. Possible small bilateral pleural effusions. Heart/mediastinum: Stable mild enlargement of the cardiomediastinal silhouette. Soft tissues: Unremarkable. Bones: No acute fracture. Degenerative changes of the visualized right acromioclavicular joint. Degenerative changes of the spine. Upper abdomen: Normal. 02/11/19 - chest x-ray - IMPRESSION: Slightly decreased but persistent patchy consolidations in the right lung. Slightly decreased left perihilar opacities. Findings may IMPRESSION: 1. No significant change in the interstitial and alveolar opacities in bilateral lungs. 2. Possible small bilateral pleural effusions, unchanged. represent infectious/inflammatory process and/or pulmonary edema. Possible small bilateral pleural effusions. 02/16/19 - chest x-ray - Impression: Worsening of aeration with increasing interstitial and bilateral predominantly perihilar airspace disease. Findings likely related to worsening CHF/pulmonary edema. Superimposed pneumonia to be excluded clinically. Follow-up recommended. Chest x-ray - 02/18/19 - COMPARISON: Chest radiograph on 02/16/2019 FINDINGS: Hardware: Endotracheal tube terminates in the region of the mid thoracic trachea. Enteric tube courses past the diaphragm and out of the field of view. Lungs/pleura: Slightly decreased but persistent hazy and interstitial opacities. Persistent small left pleural effusion. Heart/mediastinum: Stable mild enlargement of the cardiomediastinal silhouette. Soft tissues: Unremarkable. Bones: No acute fracture. Upper abdomen: Normal. IMPRESSION: Slightly decreased but persistent changes suggesting pulmonary edema. Component of infectious/inflammatory process is not excluded. Persistent small left pleural effusion. Chest x-ray - 02/20/19 - Procedure: XRAY Chest 1v Indication: Dyspnea Comparison: Earlier same day A single view chest radiograph was obtained. Findings: Intubation noted. The endotracheal tube is in good position about 3 cm above the christal. Cardiomegaly again noted. Moderate pulmonary vascular congestion demonstrated. IMPRESSION: Endotracheal tube in good position. [facility] Chest x-ray - - FINDINGS: The tip of the endotracheal tube is appropriately positioned, projecting between the clavicular heads. The sidehole of the enteric tube projects within the stomach. Extensive bilateral consolidation is again noted. Favor multilobar pneumonia. Heart size is borderline, but likely exaggerated by portable technique. No pneumothorax. Bony degenerative changes. IMPRESSION: Extensive airspace consolidation, similar to prior. Favor multilobar pneumonia. Appropriately positioned tubes. Chest x-ray - 02/24/19 - IMPRESSION: No significant interval change compared to the prior chest x-ray. Cardiomegaly with diffuse interstitial and alveolar opacities, which may represent pulmonary edema versus pneumonia. Chest x-ray - 02/26/19 - IMPRESSION: No significant interval change compared to the prior chest x-ray. Cardiomegaly with diffuse interstitial and alveolar opacities, which may represent pulmonary edema versus pneumonia. Chest x-ray - 03/03/19 - Comparison: 02/26/2019 A single view chest radiograph was obtained. Findings: Central hilar edema with cephalization of pulmonary vessels and interstitial opacities likely due to CHF demonstrated. There is a probable left pleural effusion. NG tube and tracheostomy noted in good position. IMPRESSION: Status post tracheostomy. No pneumothorax Pulmonary edema. Microbiology Date/Time Source Procedure Growth Status 03/03/19 12:40 Blood Blood Culture - Preliminary NO GROWTH AFTER 48 HOURS Resulted 03/01/19 20:00 Sputum Induced Gram Stain - Final Complete 03/01/19 20:00 Sputum Induced Sputum Culture - Final NORMAL UPPER RESPIRATORY ADRIANA AT 48 ... Complete 03/03/19 18:00 Indwelling Cath Urine Culture - Final NO GROWTH AFTER 48 HOURS Complete 02/06/19 17:10 Rectal Mucosa - Final NO CARBAPENEM-RESISTANT ENTEROBACTERI... Complete Microbiology Date/Time Source Procedure Growth Status 03/03/19 18:00 Indwelling Cath Urine Culture - Final NO GROWTH AFTER 48 HOURS Complete Laboratory Tests Test 03/06/19 05:00 03/06/19 08:00 White Blood Count 2.4 K/UL (4.8-10.8) L 2.8 K/UL (4.8-10.8) L Red Blood Count 2.56 M/UL (4.70-6.10) L 2.70 M/UL (4.70-6.10) L Hemoglobin 7.4 G/DL (14.2-18.0) L 7.8 G/DL (14.2-18.0) L Hematocrit 22.3 % (42.0-52.0) L 23.8 % (42.0-52.0) L Mean Corpuscular Volume 87 FL (80-99) 88 FL (80-99) Mean Corpuscular Hemoglobin 29.0 PG (27.0-31.0) 28.9 PG (27.0-31.0) Mean Corpuscular Hemoglobin Concent 33.2 G/DL (32.0-36.0) 32.8 G/DL (32.0-36.0) Red Cell Distribution Width 16.8 % (11.6-14.8) H 16.4 % (11.6-14.8) H Platelet Count 86 K/UL (150-450) L 85 K/UL (150-450) L Mean Platelet Volume 6.5 FL (6.5-10.1) 6.3 FL (6.5-10.1) L Neutrophils (%) (Auto) % (45.0-75.0) % (45.0-75.0) Lymphocytes (%) (Auto) % (20.0-45.0) % (20.0-45.0) Monocytes (%) (Auto) % (1.0-10.0) % (1.0-10.0) Eosinophils (%) (Auto) % (0.0-3.0) % (0.0-3.0) Basophils (%) (Auto) % (0.0-2.0) % (0.0-2.0) Differential Total Cells Counted 100 100 Neutrophils % (Manual) 49 % (45-75) 49 % (45-75) Lymphocytes % (Manual) 43 % (20-45) 42 % (20-45) Monocytes % (Manual) 6 % (1-10) 7 % (1-10) Eosinophils % (Manual) 2 % (0-3) 2 % (0-3) Basophils % (Manual) 0 % (0-2) 0 % (0-2) Band Neutrophils 0 % (0-8) 0 % (0-8) Platelet Estimate Decreased L Decreased L Platelet Morphology Normal Normal Anisocytosis 1+ 1+ Sodium Level 136 MMOL/L (136-145) Potassium Level 3.4 MMOL/L (3.5-5.1) L Chloride Level 99 MMOL/L (98-107) Carbon Dioxide Level 31 MMOL/L (21-32) Anion Gap 6 mmol/L (5-15) Blood Urea Nitrogen 28 mg/dL (7-18) H Creatinine 1.7 MG/DL (0.55-1.30) H Estimat Glomerular Filtration Rate 41.5 mL/min (>60) Glucose Level 183 MG/DL (74-106) #H Calcium Level 8.2 MG/DL (8.5-10.1) L Total Bilirubin 0.6 MG/DL (0.2-1.0) Aspartate Amino Transf (AST/SGOT) 42 U/L (15-37) H Alanine Aminotransferase (ALT/SGPT) 55 U/L (12-78) Alkaline Phosphatase 125 U/L (46-116) H Total Protein 4.8 G/DL (6.4-8.2) L Albumin 1.9 G/DL (3.4-5.0) L Globulin 2.9 g/dL Albumin/Globulin Ratio 0.7 (1.0-2.7) L Phosphorus Level 2.5 MG/DL (2.5-4.9) Magnesium Level 1.7 MG/DL (1.8-2.4) L Current Medications Medications (Trade) Dose Ordered Sig/Marquis Route PRN Reason Start Time Stop Time Status Last Admin Dose Admin Acetaminophen (Tylenol) 650 mg Q4H PRN ORAL Mild Pain (Pain Scale 1-3) 02/07/19 11:15 03/08/19 17:29 03/04/19 12:34 Acetaminophen/ Butalbital/ Caffeine (Fioricet) 1 tab Q8H PRN ORAL For Headache 02/08/19 17:15 03/10/19 17:14 Albuterol/ Ipratropium (Albuterol/ Ipratropium) 3 ml Q6HRT HHN 03/03/19 19:00 03/08/19 18:59 03/06/19 12:46 Amlodipine Besylate (Norvasc) 10 mg DAILY NG 02/15/19 09:00 03/14/19 15:59 03/06/19 09:00 Artificial Tears (Lacri-Lube) 1 applic AC+HS BOTH EYES 02/18/19 06:30 03/20/19 06:29 03/06/19 13:13 Bisacodyl (Dulcolax) 5 mg DAILYPRN PRN ORAL Constipation 02/08/19 17:15 03/10/19 17:14 02/25/19 12:45 Chlorhexidine Gluconate (Jessy-Hex 2%) 1 applic DAILY@2000 TOPIC 02/25/19 20:00 03/27/19 19:59 03/05/19 19:45 Clonidine HCl (Catapres tab) 0.2 mg EVERY 8 HOURS NG 03/02/19 22:00 03/19/19 13:59 03/06/19 13:14 Dextrose (Dextrose 50%) 25 ml Q30M PRN IV Hypoglycemia 03/01/19 07:15 03/31/19 07:14 Dextrose (Dextrose 50%) 50 ml Q30M PRN IV Hypoglycemia 03/01/19 07:15 03/31/19 07:14 03/05/19 05:32 Docusate Sodium (Colace) 100 mg TID GT 02/12/19 18:00 03/12/19 08:59 03/06/19 13:13 Fentanyl Citrate 2500 mcg/Sodium Chloride 250 ml @ 0 mls/hr Q24H IV 03/03/19 00:00 03/10/19 00:00 03/05/19 21:11 Fluconazole/ Sodium Chloride 100 ml @ 100 mls/hr Q24H IV 03/03/19 18:00 03/10/19 17:59 03/05/19 17:50 Furosemide (Lasix) 20 mg DAILY IV 03/06/19 09:00 03/31/19 08:59 03/06/19 09:00 Heparin Sodium (Porcine) (Heparin 5000 units/ml) 5,000 units EVERY 12 HOURS SUBQ 02/26/19 21:00 03/28/19 20:59 03/06/19 09:33 Hydralazine HCl (Apresoline) 10 mg Q4H PRN IV bp over 165 syst 02/17/19 10:15 03/19/19 10:14 02/19/19 14:45 Hydralazine HCl (Apresoline) 50 mg Q8HR NG 02/22/19 14:00 03/21/19 21:59 03/06/19 13:13 Insulin Aspart (NovoLOG) EVERY 6 HOURS SUBQ 02/26/19 12:00 03/28/19 11:59 03/06/19 05:35 Insulin Detemir (Levemir) 10 units Q12HR SUBQ 03/05/19 09:00 04/01/19 20:59 03/06/19 09:32 Lorazepam (Ativan 2mg/ml 1ml) 2 mg Q2H PRN IV For Anxiety 02/27/19 13:48 03/06/19 13:47 03/06/19 11:07 Meropenem 1 gm/ Sodium Chloride 55 ml @ 110 mls/hr Q12HR IVPB 03/03/19 21:00 03/08/19 20:59 03/06/19 09:30 Metoclopramide HCl (Reglan) 5 mg Q8H IVP 02/26/19 09:00 03/28/19 08:59 03/06/19 09:00 Metolazone (Zaroxolyn) 10 mg DAILY NG 02/19/19 10:00 03/21/19 09:59 03/06/19 09:30 Metoprolol Tartrate (Lopressor) 100 mg Q12HR ORAL 02/22/19 21:00 03/08/19 20:59 03/06/19 09:00 Midazolam HCl (Versed 2mg/2ml vial) 1 mg Q2H PRN IVP Agitation 02/13/19 08:45 03/15/19 08:44 03/06/19 13:19 Neomycin/ Polymyxin/ Dexamethasone (Maxitrol Opth Oint) 1 applic BEDTIME BOTH EYES 02/18/19 21:00 03/20/19 20:59 03/05/19 20:58 Nitroglycerin (Ntg) 0.4 mg Q5M PRN SL Prn Chest Pain 02/07/19 11:00 03/08/19 17:29 02/08/19 07:42 Ondansetron HCl (Zofran) 4 mg Q6H PRN IVP Nausea & Vomiting 02/07/19 11:15 03/08/19 11:14 02/09/19 00:58 Pantoprazole (Protonix) 40 mg DAILY IVP 02/26/19 09:00 03/24/19 20:59 03/06/19 09:00 Patient Own Medication (Patient's Own Med) 1 ea BID ORAL 02/07/19 18:00 03/09/19 17:59 03/06/19 09:01 Patient Own Medication (Patient's Own Med) 1 ea DAILY ORAL 03/05/19 12:00 04/04/19 11:59 03/06/19 09:01 Patient Own Medication (Patient's Own Med) 2 ea DAILY ORAL 02/08/19 09:00 03/10/19 08:59 03/06/19 09:01 Polyethylene Glycol (Miralax) 17 gm BEDTIME ORAL 02/08/19 21:00 03/10/19 20:59 03/03/19 21:01 Sennosides (Senokot) 8.6 mg DAILY ORAL 02/13/19 12:00 03/15/19 11:59 03/06/19 09:00 Trimethoprim/ Sulfamethoxazole (Bactrim-DS) 1 tab DAILY ORAL 03/04/19 09:00 03/11/19 08:59 03/06/19 09:01 Vancomycin HCl (Vanco rx to dose) 1 ea DAILY PRN MISC Per rx protocol 03/03/19 11:00 04/02/19 10:59 Vancomycin HCl 1 gm/Dextrose 275 ml @ 183.708 mls/hr Q24H IVPB 03/05/19 09:00 03/10/19 08:59 03/06/19 09:30 Russ Tony MD Mar 06, 2019 13:48
--- NOTE | 2019-03-06 14:00 | NUR ---
NURSE NOTES: Fentanyl drip was maintained at 200mcg/hr to maintain RASS score of -2 light sedation. VS stable.
[2019-03-06] MEDS: fentaNYL Citrate 2,500 MCG in NS 200 ML IV SCH ×2 (15:00→22:16)
--- NOTE | 2019-03-06 15:02 | General Progress Note ---
Assessment/Plan Status: stable Assessment/Plan: 58 y Male admitted to the hospital due to fever, shortness of breath and chest pain. # Multilobar pneumonia in patient with HIV - Broad sp atbx started. Continue Zosyn, Vancomycin, Azithromycin, TM-SMX ( now prophylactic and completed course for PCP/PJ pnuemonia ) - Fluconazole per ID - Droplet precaution - Flu swab negative - Oxygen support, ventilatory support as not able to wean off ventilator due to agitation. - ID consult appreciated. # Hypoxemic respiratory failure - Critical care follow up. Unable to wean off the ventilator. Tracheostomy completed. - Due to pneumonia - Tolerating CPAP 03/06 # Chest pain - EKG with bifascicular block RBB and LAFB, no ST changes. - Trend troponin x3 completed - ECHO completed with no WMA and preserved EF. Dr. Francois consulted. Consideration for outpatient cath vs possibly myocarditis due to underlying viral infection. No evidence of Takotsubo per TTE. - NGT prn - Pain control with morphine # HIV - Continue HARRT - VL is undetectable per patient report. T cell count > 400 - CD 4 count 191 # HTN - Resume home medication - Clonidine, Isordil added. # [place] hyponatremia - Monitor - good response to NS # CKD 2-3 - Trend renal function - Worsening creatinine to 2.8 today. 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 Gasca for POT FILLER if needed again in the future. Currently renal function stable and L femoral dialysis access removed. - R PICC done last week. # Failure to thrive and moderate protein caloric malnutrition - PEG 03/05 - Tube feeds starting - Dr. Ricketts following up. # Hypokalemia - Replete today # Hypophosphatemia - Replete today # Diabetes Mellitus - Lantus 10 BID - Endocrinology following up appreciated. - Resolved hypoglycemia ( 68 ) today. DVT and GI ppx Full code Subjective ROS Limited/Unobtainable: Yes Allergies: Coded Allergies: No Known Allergies (Unverified , 02/05/13) Objective Last 24 Hour Vital Signs Date Time Temp Pulse Resp B/P (MAP) Pulse Ox O2 Delivery O2 Flow Rate FiO2 03/06/19 14:45 82 16 40 03/06/19 13:14 136/53 03/06/19 13:13 136/53 03/06/19 12:46 101 27 99 Mechanical Ventilator 40 03/06/19 12:44 96 29 40 03/06/19 12:40 100 33 99 Mechanical Ventilator 40 03/06/19 10:37 86 30 40 03/06/19 09:14 100 03/06/19 09:00 89 136/53 03/06/19 09:00 89 136/53 03/06/19 08:40 105 25 40 03/06/19 08:00 40 03/06/19 08:00 Mechanical Ventilator Mechanical Ventilator 03/06/19 07:00 89 21 136/53 (80) 100 03/06/19 07:00 24 Mechanical Ventilator 03/06/19 06:40 84 24 100 Mechanical Ventilator 40 03/06/19 06:38 86 25 40 03/06/19 06:35 85 24 100 Mechanical Ventilator 40 03/06/19 06:30 84 24 130/54 (79) 100 03/06/19 06:00 24 Mechanical Ventilator 03/06/19 06:00 87 22 124/48 (73) 100 03/06/19 05:41 144/48 03/06/19 05:40 144/48 03/06/19 05:30 86 24 124/48 (73) 100 03/06/19 05:00 86 24 144/48 (80) 100 03/06/19 05:00 24 Mechanical Ventilator 03/06/19 04:52 87 24 40 03/06/19 04:30 97 18 140/54 (82) 99 03/06/19 04:00 40 03/06/19 04:00 99.2 95 139/51 (80) 98 03/06/19 04:00 Mechanical Ventilator Mechanical Ventilator 03/06/19 04:00 24 Mechanical Ventilator 03/06/19 04:00 78 03/06/19 03:30 90 141/53 (82) 99 03/06/19 03:22 92 25 40 03/06/19 03:00 24 Mechanical Ventilator 03/06/19 03:00 92 21 136/55 (82) 98 03/06/19 02:30 91 24 141/59 (86) 99 03/06/19 02:00 24 Mechanical Ventilator 03/06/19 02:00 96 19 149/58 (88) 99 03/06/19 01:30 94 24 155/64 (94) 99 03/06/19 01:21 90 24 98 Mechanical Ventilator 40 03/06/19 01:07 78 24 100 Mechanical Ventilator 40 03/06/19 01:06 78 24 40 03/06/19 01:00 24 Mechanical Ventilator 03/06/19 01:00 79 24 141/62 (88) 100 03/06/19 00:30 78 24 149/55 (86) 99 03/06/19 00:00 40 03/06/19 00:00 78 03/06/19 00:00 Mechanical Ventilator Mechanical Ventilator 03/06/19 00:00 24 Mechanical Ventilator 03/06/19 00:00 99.3 78 25 149/57 (87) 100 03/05/19 23:30 78 24 148/56 (86) 98 03/05/19 23:12 80 25 40 03/05/19 23:00 78 24 142/53 (82) 98 03/05/19 23:00 24 Mechanical Ventilator 03/05/19 22:49 139/58 03/05/19 22:49 139/58 03/05/19 22:30 80 22 139/58 (85) 99 03/05/19 22:00 76 24 131/50 (77) 99 03/05/19 22:00 24 Mechanical Ventilator 03/05/19 21:41 99.2 03/05/19 21:30 77 21 141/52 (81) 98 03/05/19 21:28 78 24 40 03/05/19 21:11 20 Mechanical Ventilator 03/05/19 21:00 78 15 131/68 (89) 99 03/05/19 20:58 75 135/51 03/05/19 20:30 74 24 135/51 (79) 98 03/05/19 20:00 Mechanical Ventilator Mechanical Ventilator 03/05/19 20:00 76 03/05/19 20:00 40 03/05/19 20:00 99.2 76 24 121/59 (79) 97 03/05/19 19:30 78 12 131/58 (82) 99 03/05/19 19:12 76 25 98 Mechanical Ventilator 40 03/05/19 19:01 76 24 40 03/05/19 19:00 76 24 99 Mechanical Ventilator 40 03/05/19 19:00 24 Mechanical Ventilator 40 03/05/19 19:00 76 19 149/53 (85) 99 03/05/19 18:00 77 21 127/72 (90) 99 03/05/19 18:00 24 Mechanical Ventilator 40 03/05/19 17:30 79 23 147/61 (89) 100 03/05/19 17:00 99.5 80 24 131/53 (79) 100 03/05/19 17:00 24 Mechanical Ventilator 40 03/05/19 17:00 72 24 40 03/05/19 16:30 74 20 142/58 (86) 99 03/05/19 16:00 70 03/05/19 16:00 Mechanical Ventilator Mechanical Ventilator 03/05/19 16:00 24 Mechanical Ventilator 40 03/05/19 16:00 78 22 147/59 (88) 99 03/05/19 16:00 40 03/05/19 15:30 71 22 136/48 (77) 98 03/05/19 15:01 74 24 40 03/05/19 15:00 24 Mechanical Ventilator 40 03/05/19 15:00 73 19 138/48 (78) 100 Intake and Output 03/05/19 03/06/19 18:59 06:59 Intake Total 991.416 ml 955 ml Output Total 1850 ml 1560 ml Balance -858.584 ml -605 ml Free Water 100 ml 150 ml IV Total 762.416 ml 289 ml Tube Feeding 129 ml 516 ml Output Urine Total 1850 ml 1460 ml Stool Total 100 ml Laboratory Tests 03/06/19 05:00: White Blood Count 2.4L, Red Blood Count 2.56L, Hemoglobin 7.4L, Hematocrit 22.3L , Mean Corpuscular Volume 87, Mean Corpuscular Hemoglobin 29.0, Mean Corpuscular Hemoglobin Concent 33.2, Red Cell Distribution Width 16.8H, Platelet Count 86L, Mean Platelet Volume 6.5, Neutrophils (%) (Auto) , Lymphocytes (%) (Auto) , Monocytes (%) (Auto) , Eosinophils (%) (Auto) , Basophils (%) (Auto) , Differential Total Cells Counted 100, Neutrophils % ( Manual) 49, Lymphocytes % (Manual) 43, Monocytes % (Manual) 6, Eosinophils % ( Manual) 2, Basophils % (Manual) 0, Band Neutrophils 0, Platelet Estimate DecreasedL, Platelet Morphology Normal, Anisocytosis 1+, Sodium Level 136, Potassium Level 3.4L, Chloride Level 99, Carbon Dioxide Level 31, Anion Gap 6, Blood Urea Nitrogen 28H, Creatinine 1.7H, Estimat Glomerular Filtration Rate 41.5, Glucose Level 183#H, Calcium Level 8.2L, Total Bilirubin 0.6, Aspartate Amino Transf (AST/SGOT) 42H, Alanine Aminotransferase (ALT/SGPT) 55, Alkaline Phosphatase 125H, Total Protein 4.8L, Albumin 1.9L, Globulin 2.9, Albumin/ Globulin Ratio 0.7L 03/06/19 08:00: White Blood Count 2.8L, Red Blood Count 2.70L, Hemoglobin 7.8L, Hematocrit 23.8L , Mean Corpuscular Volume 88, Mean Corpuscular Hemoglobin 28.9, Mean Corpuscular Hemoglobin Concent 32.8, Red Cell Distribution Width 16.4H, Platelet Count 85L, Mean Platelet Volume 6.3L, Neutrophils (%) (Auto) , Lymphocytes (%) (Auto) , Monocytes (%) (Auto) , Eosinophils (%) (Auto) , Basophils (%) (Auto) , Differential Total Cells Counted 100, Neutrophils % ( Manual) 49, Lymphocytes % (Manual) 42, Monocytes % (Manual) 7, Eosinophils % ( Manual) 2, Basophils % (Manual) 0, Band Neutrophils 0, Platelet Estimate DecreasedL, Platelet Morphology Normal, Anisocytosis 1+, Phosphorus Level 2.5, Magnesium Level 1.7L Height (Feet): 6 Height (Inches): 0.00 Weight (Pounds): 227 General Appearance: WD/WN, moderate distress EENT: PERRL/EOMI Neck: normal alignment Cardiovascular: normal rate Respiratory/Chest: decreased breath sounds Abdomen: decreased bowel sounds Geovani Hawley MD Mar 06, 2019 15:02
--- NOTE | 2019-03-06 15:30 | NUR ---
NURSE NOTES: New bag of Fentanyl drip was hanged to continue Fentanyl drip as the previous bag was completely infused.
--- NOTE | 2019-03-06 16:00 | NUR ---
NURSE NOTES: Fentanyl drip has been titrated to 300mcg/hr to maintain RASS score of -2 light sedation. Pt remains on CPAP as per Dr Meredith's instructions, with pressure support of 10, Peep maintained at 5.0 and FIO2 maintained at 40% with O2sat above 94%. Oral care was done. Pt was cleaned and repositioned with bilateral extremities elevated on pillows.
--- NOTE | 2019-03-06 16:01 | Surgery Progress Note ---
Surgery Progress Note Subjective Procedure Performed tracheostomy Symptoms: improved Additional Comments tolerating feeding trials improving more awake and responsive follows commands Objective Last 24 Hour Vital Signs Date Time Temp Pulse Resp B/P (MAP) Pulse Ox O2 Delivery O2 Flow Rate FiO2 03/06/19 15:30 78 17 120/52 (74) 98 03/06/19 15:00 81 22 119/45 (69) 98 03/06/19 14:45 82 16 40 03/06/19 14:30 83 19 131/53 (79) 99 03/06/19 14:00 86 18 126/57 (80) 97 03/06/19 13:30 136/116 (123) 91 03/06/19 13:14 136/53 03/06/19 13:13 136/53 03/06/19 13:00 88 22 148/65 (92) 96 03/06/19 12:46 101 27 99 Mechanical Ventilator 40 03/06/19 12:44 96 29 40 03/06/19 12:40 100 33 99 Mechanical Ventilator 40 03/06/19 12:30 85 23 158/110 (126) 99 03/06/19 12:00 Mechanical Ventilator Mechanical Ventilator 03/06/19 12:00 98.8 88 23 159/69 (99) 97 03/06/19 12:00 93 03/06/19 12:00 40 03/06/19 11:30 84 21 152/64 (93) 100 03/06/19 11:00 87 19 143/62 (89) 99 03/06/19 10:37 86 30 40 03/06/19 10:30 89 25 134/53 (80) 99 03/06/19 10:00 93 17 148/55 (86) 98 03/06/19 09:30 97 18 149/57 (87) 98 03/06/19 09:14 100 03/06/19 09:00 99 21 153/69 (97) 99 03/06/19 09:00 89 136/53 03/06/19 09:00 89 136/53 03/06/19 08:40 105 25 40 03/06/19 08:30 86 22 133/59 (83) 100 03/06/19 08:00 98.9 86 19 144/52 (82) 100 03/06/19 08:00 85 03/06/19 08:00 40 03/06/19 08:00 Mechanical Ventilator Mechanical Ventilator 03/06/19 07:00 89 21 136/53 (80) 100 03/06/19 07:00 24 Mechanical Ventilator 03/06/19 06:40 84 24 100 Mechanical Ventilator 40 03/06/19 06:38 86 25 40 03/06/19 06:35 85 24 100 Mechanical Ventilator 40 03/06/19 06:30 84 24 130/54 (79) 100 03/06/19 06:00 24 Mechanical Ventilator 03/06/19 06:00 87 22 124/48 (73) 100 03/06/19 05:41 144/48 03/06/19 05:40 144/48 03/06/19 05:30 86 24 124/48 (73) 100 03/06/19 05:00 86 24 144/48 (80) 100 03/06/19 05:00 24 Mechanical Ventilator 03/06/19 04:52 87 24 40 03/06/19 04:30 97 18 140/54 (82) 99 03/06/19 04:00 40 03/06/19 04:00 99.2 95 139/51 (80) 98 03/06/19 04:00 Mechanical Ventilator Mechanical Ventilator 03/06/19 04:00 24 Mechanical Ventilator 03/06/19 04:00 78 03/06/19 03:30 90 141/53 (82) 99 03/06/19 03:22 92 25 40 03/06/19 03:00 24 Mechanical Ventilator 03/06/19 03:00 92 21 136/55 (82) 98 03/06/19 02:30 91 24 141/59 (86) 99 03/06/19 02:00 24 Mechanical Ventilator 03/06/19 02:00 96 19 149/58 (88) 99 03/06/19 01:30 94 24 155/64 (94) 99 03/06/19 01:21 90 24 98 Mechanical Ventilator 40 03/06/19 01:07 78 24 100 Mechanical Ventilator 40 03/06/19 01:06 78 24 40 03/06/19 01:00 24 Mechanical Ventilator 03/06/19 01:00 79 24 141/62 (88) 100 03/06/19 00:30 78 24 149/55 (86) 99 03/06/19 00:00 40 03/06/19 00:00 78 03/06/19 00:00 Mechanical Ventilator Mechanical Ventilator 03/06/19 00:00 24 Mechanical Ventilator 03/06/19 00:00 99.3 78 25 149/57 (87) 100 03/05/19 23:30 78 24 148/56 (86) 98 03/05/19 23:12 80 25 40 03/05/19 23:00 78 24 142/53 (82) 98 03/05/19 23:00 24 Mechanical Ventilator 03/05/19 22:49 139/58 03/05/19 22:49 139/58 03/05/19 22:30 80 22 139/58 (85) 99 03/05/19 22:00 76 24 131/50 (77) 99 03/05/19 22:00 24 Mechanical Ventilator 03/05/19 21:41 99.2 03/05/19 21:30 77 21 141/52 (81) 98 03/05/19 21:28 78 24 40 03/05/19 21:11 20 Mechanical Ventilator 03/05/19 21:00 78 15 131/68 (89) 99 03/05/19 20:58 75 135/51 03/05/19 20:30 74 24 135/51 (79) 98 03/05/19 20:00 Mechanical Ventilator Mechanical Ventilator 03/05/19 20:00 76 03/05/19 20:00 40 03/05/19 20:00 99.2 76 24 121/59 (79) 97 03/05/19 19:30 78 12 131/58 (82) 99 03/05/19 19:12 76 25 98 Mechanical Ventilator 40 03/05/19 19:01 76 24 40 03/05/19 19:00 76 24 99 Mechanical Ventilator 40 03/05/19 19:00 24 Mechanical Ventilator 40 03/05/19 19:00 76 19 149/53 (85) 99 03/05/19 18:00 77 21 127/72 (90) 99 03/05/19 18:00 24 Mechanical Ventilator 40 03/05/19 17:30 79 23 147/61 (89) 100 03/05/19 17:00 99.5 80 24 131/53 (79) 100 03/05/19 17:00 24 Mechanical Ventilator 40 03/05/19 17:00 72 24 40 03/05/19 16:30 74 20 142/58 (86) 99 I&O Intake and Output 03/05/19 03/06/19 18:59 06:59 Intake Total 991.416 ml 955 ml Output Total 1850 ml 1560 ml Balance -858.584 ml -605 ml Free Water 100 ml 150 ml IV Total 762.416 ml 289 ml Tube Feeding 129 ml 516 ml Output Urine Total 1850 ml 1460 ml Stool Total 100 ml Cardiovascular: RSR Respiratory: decreased breath sounds Abdomen: soft, present bowel sounds, non-distended Extremities: no tenderness, no cyanosis Laboratory Tests Test 03/06/19 05:00 03/06/19 08:00 White Blood Count 2.4 K/UL (4.8-10.8) L 2.8 K/UL (4.8-10.8) L Red Blood Count 2.56 M/UL (4.70-6.10) L 2.70 M/UL (4.70-6.10) L Hemoglobin 7.4 G/DL (14.2-18.0) L 7.8 G/DL (14.2-18.0) L Hematocrit 22.3 % (42.0-52.0) L 23.8 % (42.0-52.0) L Mean Corpuscular Volume 87 FL (80-99) 88 FL (80-99) Mean Corpuscular Hemoglobin 29.0 PG (27.0-31.0) 28.9 PG (27.0-31.0) Mean Corpuscular Hemoglobin Concent 33.2 G/DL (32.0-36.0) 32.8 G/DL (32.0-36.0) Red Cell Distribution Width 16.8 % (11.6-14.8) H 16.4 % (11.6-14.8) H Platelet Count 86 K/UL (150-450) L 85 K/UL (150-450) L Mean Platelet Volume 6.5 FL (6.5-10.1) 6.3 FL (6.5-10.1) L Neutrophils (%) (Auto) % (45.0-75.0) % (45.0-75.0) Lymphocytes (%) (Auto) % (20.0-45.0) % (20.0-45.0) Monocytes (%) (Auto) % (1.0-10.0) % (1.0-10.0) Eosinophils (%) (Auto) % (0.0-3.0) % (0.0-3.0) Basophils (%) (Auto) % (0.0-2.0) % (0.0-2.0) Differential Total Cells Counted 100 100 Neutrophils % (Manual) 49 % (45-75) 49 % (45-75) Lymphocytes % (Manual) 43 % (20-45) 42 % (20-45) Monocytes % (Manual) 6 % (1-10) 7 % (1-10) Eosinophils % (Manual) 2 % (0-3) 2 % (0-3) Basophils % (Manual) 0 % (0-2) 0 % (0-2) Band Neutrophils 0 % (0-8) 0 % (0-8) Platelet Estimate Decreased L Decreased L Platelet Morphology Normal Normal Anisocytosis 1+ 1+ Sodium Level 136 MMOL/L (136-145) Potassium Level 3.4 MMOL/L (3.5-5.1) L Chloride Level 99 MMOL/L (98-107) Carbon Dioxide Level 31 MMOL/L (21-32) Anion Gap 6 mmol/L (5-15) Blood Urea Nitrogen 28 mg/dL (7-18) H Creatinine 1.7 MG/DL (0.55-1.30) H Estimat Glomerular Filtration Rate 41.5 mL/min (>60) Glucose Level 183 MG/DL (74-106) #H Calcium Level 8.2 MG/DL (8.5-10.1) L Total Bilirubin 0.6 MG/DL (0.2-1.0) Aspartate Amino Transf (AST/SGOT) 42 U/L (15-37) H Alanine Aminotransferase (ALT/SGPT) 55 U/L (12-78) Alkaline Phosphatase 125 U/L (46-116) H Total Protein 4.8 G/DL (6.4-8.2) L Albumin 1.9 G/DL (3.4-5.0) L Globulin 2.9 g/dL Albumin/Globulin Ratio 0.7 (1.0-2.7) L Phosphorus Level 2.5 MG/DL (2.5-4.9) Magnesium Level 1.7 MG/DL (1.8-2.4) L Plan Problems: (1) Hypoxia Assessment & Plan: Extensive bilateral upper lobe infiltrates likely inflammatory/infectious. Correlate clinically. Tuberculosis is not excludable. Bilateral pleural effusions. Endotracheal tube and nasogastric tube in good position Atherosclerotic vascular disease (2) Respiratory distress Assessment & Plan: on vent support s/p trach wean vent as tolerated weaning well (3) Sepsis Assessment & Plan: Sepsis with tachycardia, leukocytosis - resolved, abnormal labs, respiratory distress on vent Cont IV abx CXR noted appreciate ICU team care abnormal lft's US noted will cont to follow with recs trend labs Rx as written Moiz Costa Mar 06, 2019 16:01
--- NOTE | 2019-03-06 17:11 | NUR ---
RESPIRATORY NOTES: Weaning stopped. Placed back onto previous ACVC settings.
--- NOTE | 2019-03-06 18:00 | NUR ---
NURSE NOTES: Fentanyl drip is maintained at 300mcg/hr to maintain RASS score of -2 light sedation. VS stable. Weaning was stopped and vent settings were switched back to AC settings by RT. Pt is resting in no apparent distress, tolerating GT feeding with no residual. Pt remains afebrile.
--- NOTE | 2019-03-06 18:41 | General Progress Note ---
Assessment/Plan Problem List: (1) ISH (acute kidney injury) ICD Codes: N17.9 - Acute kidney failure, unspecified SNOMED: 22260872 (2) Uncontrolled type 2 diabetes mellitus with chronic kidney disease ICD Codes: E11.22 - Type 2 diabetes mellitus with diabetic chronic kidney disease; E11.65 - Type 2 diabetes mellitus with hyperglycemia SNOMED: 97842622, 645786952, 754655990 (3) HIV disease ICD Codes: B20 - Human immunodeficiency virus [HIV] disease SNOMED: 79971896 (4) Respiratory distress ICD Codes: R06.03 - Acute respiratory distress SNOMED: 843779879 Status: stable Assessment/Plan: - continue Novolog sliding scale every 6 hours - continue Levemir 10 units bid Subjective ROS Limited/Unobtainable: Yes Allergies: Coded Allergies: No Known Allergies (Unverified , 02/05/13) Subjective events noted trach - vent Item Value Date Time Bedside Blood Glucose 213 mg/dl H 03/06/19 1831 Bedside Blood Glucose 100 mg/dl 03/06/19 1200 Bedside Blood Glucose 208 mg/dl H 03/06/19 0932 Bedside Blood Glucose 208 mg/dl H 03/06/19 0600 Bedside Blood Glucose 174 mg/dl H 03/06/19 0000 Bedside Blood Glucose 158 mg/dl H 03/05/19 2107 Objective Last 24 Hour Vital Signs Date Time Temp Pulse Resp B/P (MAP) Pulse Ox O2 Delivery O2 Flow Rate FiO2 03/06/19 17:00 81 23 150/67 (94) 99 03/06/19 16:55 80 24 40 03/06/19 16:30 83 16 147/63 (91) 100 03/06/19 16:00 40 03/06/19 16:00 78 03/06/19 16:00 78 17 127/61 (83) 99 03/06/19 16:00 Mechanical Ventilator Mechanical Ventilator 03/06/19 15:30 78 17 120/52 (74) 98 03/06/19 15:00 81 22 119/45 (69) 98 03/06/19 14:45 82 16 40 03/06/19 14:30 83 19 131/53 (79) 99 03/06/19 14:00 86 18 126/57 (80) 97 03/06/19 13:30 136/116 (123) 91 03/06/19 13:14 136/53 03/06/19 13:13 136/53 03/06/19 13:00 88 22 148/65 (92) 96 03/06/19 12:46 101 27 99 Mechanical Ventilator 40 03/06/19 12:44 96 29 40 03/06/19 12:40 100 33 99 Mechanical Ventilator 40 03/06/19 12:30 85 23 158/110 (126) 99 03/06/19 12:00 Mechanical Ventilator Mechanical Ventilator 03/06/19 12:00 98.8 88 23 159/69 (99) 97 03/06/19 12:00 93 03/06/19 12:00 40 03/06/19 11:30 84 21 152/64 (93) 100 03/06/19 11:00 87 19 143/62 (89) 99 03/06/19 10:37 86 30 40 03/06/19 10:30 89 25 134/53 (80) 99 03/06/19 10:00 93 17 148/55 (86) 98 03/06/19 09:30 97 18 149/57 (87) 98 03/06/19 09:14 100 03/06/19 09:00 99 21 153/69 (97) 99 03/06/19 09:00 89 136/53 03/06/19 09:00 89 136/53 03/06/19 08:40 105 25 40 03/06/19 08:30 86 22 133/59 (83) 100 03/06/19 08:00 98.9 86 19 144/52 (82) 100 03/06/19 08:00 85 03/06/19 08:00 40 03/06/19 08:00 Mechanical Ventilator Mechanical Ventilator 03/06/19 07:00 89 21 136/53 (80) 100 03/06/19 07:00 24 Mechanical Ventilator 03/06/19 06:40 84 24 100 Mechanical Ventilator 40 03/06/19 06:38 86 25 40 03/06/19 06:35 85 24 100 Mechanical Ventilator 40 03/06/19 06:30 84 24 130/54 (79) 100 03/06/19 06:00 24 Mechanical Ventilator 03/06/19 06:00 87 22 124/48 (73) 100 03/06/19 05:41 144/48 03/06/19 05:40 144/48 03/06/19 05:30 86 24 124/48 (73) 100 03/06/19 05:00 86 24 144/48 (80) 100 03/06/19 05:00 24 Mechanical Ventilator 03/06/19 04:52 87 24 40 03/06/19 04:30 97 18 140/54 (82) 99 03/06/19 04:00 40 03/06/19 04:00 99.2 95 139/51 (80) 98 03/06/19 04:00 Mechanical Ventilator Mechanical Ventilator 03/06/19 04:00 24 Mechanical Ventilator 03/06/19 04:00 78 03/06/19 03:30 90 141/53 (82) 99 03/06/19 03:22 92 25 40 03/06/19 03:00 24 Mechanical Ventilator 03/06/19 03:00 92 21 136/55 (82) 98 03/06/19 02:30 91 24 141/59 (86) 99 03/06/19 02:00 24 Mechanical Ventilator 03/06/19 02:00 96 19 149/58 (88) 99 03/06/19 01:30 94 24 155/64 (94) 99 03/06/19 01:21 90 24 98 Mechanical Ventilator 40 03/06/19 01:07 78 24 100 Mechanical Ventilator 40 03/06/19 01:06 78 24 40 03/06/19 01:00 24 Mechanical Ventilator 03/06/19 01:00 79 24 141/62 (88) 100 03/06/19 00:30 78 24 149/55 (86) 99 03/06/19 00:00 40 03/06/19 00:00 78 03/06/19 00:00 Mechanical Ventilator Mechanical Ventilator 03/06/19 00:00 24 Mechanical Ventilator 03/06/19 00:00 99.3 78 25 149/57 (87) 100 03/05/19 23:30 78 24 148/56 (86) 98 03/05/19 23:12 80 25 40 03/05/19 23:00 78 24 142/53 (82) 98 03/05/19 23:00 24 Mechanical Ventilator 03/05/19 22:49 139/58 03/05/19 22:49 139/58 03/05/19 22:30 80 22 139/58 (85) 99 03/05/19 22:00 76 24 131/50 (77) 99 03/05/19 22:00 24 Mechanical Ventilator 03/05/19 21:41 99.2 03/05/19 21:30 77 21 141/52 (81) 98 03/05/19 21:28 78 24 40 03/05/19 21:11 20 Mechanical Ventilator 03/05/19 21:00 78 15 131/68 (89) 99 03/05/19 20:58 75 135/51 03/05/19 20:30 74 24 135/51 (79) 98 03/05/19 20:00 Mechanical Ventilator Mechanical Ventilator 03/05/19 20:00 76 03/05/19 20:00 40 03/05/19 20:00 99.2 76 24 121/59 (79) 97 03/05/19 19:30 78 12 131/58 (82) 99 03/05/19 19:12 76 25 98 Mechanical Ventilator 40 03/05/19 19:01 76 24 40 03/05/19 19:00 76 24 99 Mechanical Ventilator 40 03/05/19 19:00 24 Mechanical Ventilator 40 03/05/19 19:00 76 19 149/53 (85) 99 Intake and Output 03/05/19 03/06/19 18:59 06:59 Intake Total 991.416 ml 955 ml Output Total 1850 ml 1560 ml Balance -858.584 ml -605 ml Free Water 100 ml 150 ml IV Total 762.416 ml 289 ml Tube Feeding 129 ml 516 ml Output Urine Total 1850 ml 1460 ml Stool Total 100 ml Laboratory Tests 03/06/19 05:00: White Blood Count 2.4L, Red Blood Count 2.56L, Hemoglobin 7.4L, Hematocrit 22.3L , Mean Corpuscular Volume 87, Mean Corpuscular Hemoglobin 29.0, Mean Corpuscular Hemoglobin Concent 33.2, Red Cell Distribution Width 16.8H, Platelet Count 86L, Mean Platelet Volume 6.5, Neutrophils (%) (Auto) , Lymphocytes (%) (Auto) , Monocytes (%) (Auto) , Eosinophils (%) (Auto) , Basophils (%) (Auto) , Differential Total Cells Counted 100, Neutrophils % ( Manual) 49, Lymphocytes % (Manual) 43, Monocytes % (Manual) 6, Eosinophils % ( Manual) 2, Basophils % (Manual) 0, Band Neutrophils 0, Platelet Estimate DecreasedL, Platelet Morphology Normal, Anisocytosis 1+, Sodium Level 136, Potassium Level 3.4L, Chloride Level 99, Carbon Dioxide Level 31, Anion Gap 6, Blood Urea Nitrogen 28H, Creatinine 1.7H, Estimat Glomerular Filtration Rate 41.5, Glucose Level 183#H, Calcium Level 8.2L, Total Bilirubin 0.6, Aspartate Amino Transf (AST/SGOT) 42H, Alanine Aminotransferase (ALT/SGPT) 55, Alkaline Phosphatase 125H, Total Protein 4.8L, Albumin 1.9L, Globulin 2.9, Albumin/ Globulin Ratio 0.7L 03/06/19 08:00: White Blood Count 2.8L, Red Blood Count 2.70L, Hemoglobin 7.8L, Hematocrit 23.8L , Mean Corpuscular Volume 88, Mean Corpuscular Hemoglobin 28.9, Mean Corpuscular Hemoglobin Concent 32.8, Red Cell Distribution Width 16.4H, Platelet Count 85L, Mean Platelet Volume 6.3L, Neutrophils (%) (Auto) , Lymphocytes (%) (Auto) , Monocytes (%) (Auto) , Eosinophils (%) (Auto) , Basophils (%) (Auto) , Differential Total Cells Counted 100, Neutrophils % ( Manual) 49, Lymphocytes % (Manual) 42, Monocytes % (Manual) 7, Eosinophils % ( Manual) 2, Basophils % (Manual) 0, Band Neutrophils 0, Platelet Estimate DecreasedL, Platelet Morphology Normal, Anisocytosis 1+, Phosphorus Level 2.5, Magnesium Level 1.7L Height (Feet): 6 Height (Inches): 0.00 Weight (Pounds): 227 General Appearance: lethargic EENT: other - tracheostomy Neck: supple Cardiovascular: normal rate Respiratory/Chest: decreased breath sounds Abdomen: normal bowel sounds Edema: 1+ Arm (L), 1+ Arm (R), 1+ Leg (L), 1+ Leg (R), 1+ Pedal (L), 1+ Pedal ( R), 1+ Generalized Objective Current Medications Medications (Trade) Dose Ordered Sig/Marquis Route PRN Reason Start Time Stop Time Status Last Admin Dose Admin Acetaminophen (Tylenol) 650 mg Q4H PRN ORAL Mild Pain (Pain Scale 1-3) 02/07/19 11:15 03/08/19 17:29 03/04/19 12:34 Acetaminophen/ Butalbital/ Caffeine (Fioricet) 1 tab Q8H PRN ORAL For Headache 02/08/19 17:15 03/10/19 17:14 Albuterol/ Ipratropium (Albuterol/ Ipratropium) 3 ml Q6HRT HHN 03/03/19 19:00 03/08/19 18:59 03/06/19 12:46 Amlodipine Besylate (Norvasc) 10 mg DAILY NG 02/15/19 09:00 03/14/19 15:59 03/06/19 09:00 Artificial Tears (Lacri-Lube) 1 applic AC+HS BOTH EYES 02/18/19 06:30 03/20/19 06:29 03/06/19 18:00 Bisacodyl (Dulcolax) 5 mg DAILYPRN PRN ORAL Constipation 02/08/19 17:15 03/10/19 17:14 02/25/19 12:45 Chlorhexidine Gluconate (Jessy-Hex 2%) 1 applic DAILY@2000 TOPIC 02/25/19 20:00 03/27/19 19:59 03/05/19 19:45 Clonidine HCl (Catapres tab) 0.2 mg EVERY 8 HOURS NG 03/02/19 22:00 03/19/19 13:59 03/06/19 13:14 Dextrose (Dextrose 50%) 25 ml Q30M PRN IV Hypoglycemia 03/01/19 07:15 03/31/19 07:14 Dextrose (Dextrose 50%) 50 ml Q30M PRN IV Hypoglycemia 03/01/19 07:15 03/31/19 07:14 03/05/19 05:32 Docusate Sodium (Colace) 100 mg TID GT 02/12/19 18:00 03/12/19 08:59 03/06/19 18:00 Fentanyl Citrate 2500 mcg/Sodium Chloride 250 ml @ 0 mls/hr Q24H IV 03/03/19 00:00 03/10/19 00:00 03/05/19 21:11 Fluconazole/ Sodium Chloride 100 ml @ 100 mls/hr Q24H IV 03/03/19 18:00 03/10/19 17:59 03/06/19 18:01 Furosemide (Lasix) 20 mg DAILY IV 03/06/19 09:00 03/31/19 08:59 03/06/19 09:00 Heparin Sodium (Porcine) (Heparin 5000 units/ml) 5,000 units EVERY 12 HOURS SUBQ 02/26/19 21:00 03/28/19 20:59 03/06/19 09:33 Hydralazine HCl (Apresoline) 10 mg Q4H PRN IV bp over 165 syst 02/17/19 10:15 03/19/19 10:14 02/19/19 14:45 Hydralazine HCl (Apresoline) 50 mg Q8HR NG 02/22/19 14:00 03/21/19 21:59 03/06/19 13:13 Insulin Aspart (NovoLOG) EVERY 6 HOURS SUBQ 02/26/19 12:00 03/28/19 11:59 03/06/19 18:31 Insulin Detemir (Levemir) 10 units Q12HR SUBQ 03/05/19 09:00 04/01/19 20:59 03/06/19 09:32 Meropenem 1 gm/ Sodium Chloride 55 ml @ 110 mls/hr Q12HR IVPB 03/06/19 21:00 03/11/19 20:59 Metoclopramide HCl (Reglan) 5 mg Q8H IVP 02/26/19 09:00 03/28/19 08:59 03/06/19 18:01 Metolazone (Zaroxolyn) 10 mg DAILY NG 02/19/19 10:00 03/21/19 09:59 03/06/19 09:30 Metoprolol Tartrate (Lopressor) 100 mg Q12HR ORAL 02/22/19 21:00 03/08/19 20:59 03/06/19 09:00 Midazolam HCl (Versed 2mg/2ml vial) 1 mg Q2H PRN IVP Agitation 02/13/19 08:45 03/15/19 08:44 03/06/19 13:19 Neomycin/ Polymyxin/ Dexamethasone (Maxitrol Opth Oint) 1 applic BEDTIME BOTH EYES 02/18/19 21:00 03/20/19 20:59 03/05/19 20:58 Nitroglycerin (Ntg) 0.4 mg Q5M PRN SL Prn Chest Pain 02/07/19 11:00 03/08/19 17:29 02/08/19 07:42 Ondansetron HCl (Zofran) 4 mg Q6H PRN IVP Nausea & Vomiting 02/07/19 11:15 03/08/19 11:14 02/09/19 00:58 Pantoprazole (Protonix) 40 mg DAILY IVP 02/26/19 09:00 03/24/19 20:59 03/06/19 09:00 Patient Own Medication (Patient's Own Med) 1 ea BID ORAL 02/07/19 18:00 03/09/19 17:59 03/06/19 18:00 Patient Own Medication (Patient's Own Med) 1 ea DAILY ORAL 03/07/19 09:00 04/04/19 11:59 Patient Own Medication (Patient's Own Med) 2 ea DAILY ORAL 02/08/19 09:00 03/10/19 08:59 03/06/19 09:01 Polyethylene Glycol (Miralax) 17 gm BEDTIME ORAL 02/08/19 21:00 03/10/19 20:59 03/03/19 21:01 Sennosides (Senokot) 8.6 mg DAILY ORAL 02/13/19 12:00 03/15/19 11:59 03/06/19 09:00 Trimethoprim/ Sulfamethoxazole (Bactrim-DS) 1 tab DAILY ORAL 03/04/19 09:00 03/11/19 08:59 03/06/19 09:01 Vancomycin HCl (Vanco rx to dose) 1 ea DAILY PRN MISC Per rx protocol 03/03/19 11:00 04/02/19 10:59 Vancomycin HCl 1 gm/Dextrose 275 ml @ 183.708 mls/hr Q24H IVPB 03/05/19 09:00 03/10/19 08:59 03/06/19 09:30 Carlito Nichols MD Mar 06, 2019 18:41
--- NOTE | 2019-03-06 19:06 | NUR ---
RESPIRATORY NOTE: Received pt on AC 24, 550VT, 40%, PEEP +5. Pt is trach-dependent w/ a cuffed, Shiley 8 tube. Pt asleep/sedated. B/S elina. rhonchi, sxn minimal amounts of thick, pale-yellow to phipps-yellow secretions. Vent plugged into red outlet, ambubag at bedside. Pt in no apparent distress at this time. Will continue to monitor pt.
--- NOTE | 2019-03-06 19:15 | NUR ---
HAND-OFF: Report given to Keyla ZARATE. VS stable. Endorsed plan of care.
--- NOTE | 2019-03-06 19:20 | NUR ---
NURSE NOTES: Endorsement received from TESSA Duval. Patient opens eyes spontaneously. Trache to vent. Shiley 8.0, AC 24, Vt 550, PEEP 5, 40% FiO2. No shortness of breath. Right upper arm PICC, ongoing Fentanyl drip at 300mcg/hr. GT patent and intact. Dressing dry. Receiving Glucerna 1.5 43 ml/hr. No residual. Simon F 18 connected to urimeter. With rectal tube. SCDs in place. On P200 mattress. Head of bed elevated. Bed alarm on. Call light within reach. Bed locked and in low position.
[2019-03-06] MEDS: Maxitrol Opth Oint 3.5gm BOTH EYES SCH (20:31)
[2019-03-06] MEDS: Dyna-Hex 2% Top Sol 2oz TOPIC SCH (20:31)
[2019-03-06] MEDS: Meropenem 1 GM in NS 55 ML IVPB SCH (20:32)
[2019-03-06] MEDS: Miralax 17gm pkt ORAL SCH (20:33)
--- NOTE | 2019-03-06 21:00 | NUR ---
NURSE NOTES: With order from Dr. Douglas to titrate Fentanyl to goal of RASS -1. Decreased to 290mcg/hr. Miralax not given due to patient is having diarrhea.
--- NOTE | 2019-03-06 22:00 | NUR ---
NURSE NOTES: Currently on Fentanyl 250mcg/hr. Patient opens eyes to voice, then goes back to sleep. Will continue to monitor.
[2019-03-07] VITALS (42 sets, daily range): BP systolic 103–158; BP diastolic 43–100
--- NOTE | 2019-03-07 | NUR ---
NURSE NOTES: Patient with eyes closed. On Fentanyl 250mcg/hr. Secretions suctioned, scant amount noted. Tolerating feeding. Bilateral lower and upper extremities elevated.
[2019-03-07] MEDS: NovoLOG Insulin Flexpen SUBQ SCH ×5 (00:04→23:32)
[2019-03-07] MEDS: Albuterol/Ipratropium 3ml neb HHN SCH ×4 (01:03→19:02)
[2019-03-07] MEDS: Metoclopramide 10mg/2ml Inj IVP SCH ×3 (01:29→17:43)
--- NOTE | 2019-03-07 02:00 | NUR ---
NURSE NOTES: Patient asleep. Vital signs stable
--- NOTE | 2019-03-07 04:00 | NUR ---
NURSE NOTES: Bed bath, oral care, change of linens done.
--- NOTE | 2019-03-07 05:00 | NUR ---
NURSE NOTES: Fentanyl titrated down to 150mcg/hr for weaning early in the morning today.
[2019-03-07 05:18] LABS: HEMOGLOBIN 8.3 G/DL (14.2-18.0); MEAN CORPUSCULAR VOLUME 87 FL (80-99); PLATELET COUNT 94 K/UL (150-450); RED BLOOD COUNT 2.88 M/UL (4.70-6.10); RED CELL DISTRIBUTION WIDTH 16.2 % (11.6-14.8); WHITE BLOOD COUNT 2.7 K/UL (4.8-10.8)
[2019-03-07 05:33] LABS: ALANINE AMINOTRANSFERASE 50 U/L (12-78); ALBUMIN/GLOBULIN RATIO 0.6 (1.0-2.7); ALKALINE PHOSPHATASE 137 U/L (46-116); ANION GAP 5 mmol/L (5-15); ASPARTATE AMINO TRANSFERASE 41 U/L (15-37); BILIRUBIN,TOTAL 0.5 MG/DL (0.2-1.0); BLOOD UREA NITROGEN 25 mg/dL (7-18); CALCIUM 8.4 MG/DL (8.5-10.1); CARBON DIOXIDE 31 MMOL/L (21-32); CHLORIDE 100 MMOL/L (98-107); CREATININE 1.8 MG/DL (0.55-1.30); POTASSIUM 3.6 MMOL/L (3.5-5.1); SODIUM 136 MMOL/L (136-145)
[2019-03-07] MEDS: cloNIDine 0.2mg Tab NG SCH ×3 (05:42→21:54)
[2019-03-07] MEDS: HydrALAZINE 50mg tab NG SCH ×3 (05:42→21:54)
[2019-03-07] MEDS: Lacri-Lube Opth Oint 3.5gm BOTH EYES SCH ×4 (05:42→20:40)
--- NOTE | 2019-03-07 06:57 | NUR ---
NURSE NOTES: Patient awake and calm, able to communicate needs by nodding or shaking head.
--- NOTE | 2019-03-07 07:00 | NUR ---
RESPIRATORY NOTE: Received pt on ordered vent settings. Pt airway is patent and secured. No resp distress noted. Suctioned pt prn. Vent alarms are on and audible. Vent is plugged into red outlet. Will monitor pt progress.
--- NOTE | 2019-03-07 07:02 | NUR ---
HAND-OFF: Report given to TESSA Shepherd.
--- NOTE | 2019-03-07 07:03 | General Progress Note ---
Assessment/Plan Problem List: (1) ISH (acute kidney injury) ICD Codes: N17.9 - Acute kidney failure, unspecified SNOMED: 17930073 (2) Uncontrolled type 2 diabetes mellitus with chronic kidney disease ICD Codes: E11.22 - Type 2 diabetes mellitus with diabetic chronic kidney disease; E11.65 - Type 2 diabetes mellitus with hyperglycemia SNOMED: 99159025, 705858187, 302486922 (3) HIV disease ICD Codes: B20 - Human immunodeficiency virus [HIV] disease SNOMED: 72130264 (4) Respiratory distress ICD Codes: R06.03 - Acute respiratory distress SNOMED: 814206618 Status: stable Assessment/Plan: - continue Novolog sliding scale every 6 hours - continue Levemir 10 units bid Subjective ROS Limited/Unobtainable: Yes Allergies: Coded Allergies: No Known Allergies (Unverified , 02/05/13) Subjective events noted trach - vent Item Value Date Time Bedside Blood Glucose 173 mg/dl H 03/07/19 0600 Bedside Blood Glucose 211 mg/dl H 03/07/19 0004 Bedside Blood Glucose 209 mg/dl H 03/06/19 2040 Bedside Blood Glucose 213 mg/dl H 03/06/19 1831 Bedside Blood Glucose 100 mg/dl 03/06/19 1200 Objective Last 24 Hour Vital Signs Date Time Temp Pulse Resp B/P (MAP) Pulse Ox O2 Delivery O2 Flow Rate FiO2 03/07/19 06:00 73 24 153/56 (88) 100 03/07/19 06:00 Mechanical Ventilator 40 03/07/19 05:45 77 21 136/58 (84) 100 03/07/19 05:42 136/56 03/07/19 05:42 136/56 03/07/19 05:30 71 22 136/56 (82) 100 03/07/19 05:15 71 24 132/53 (79) 100 03/07/19 05:02 71 25 40 03/07/19 05:00 21 Mechanical Ventilator 40 03/07/19 05:00 74 19 127/85 (99) 100 03/07/19 04:45 71 22 137/55 (82) 100 03/07/19 04:30 72 20 132/58 (82) 100 03/07/19 04:00 40 03/07/19 04:00 Mechanical Ventilator Mechanical Ventilator 03/07/19 04:00 22 Mechanical Ventilator 40 03/07/19 04:00 98.9 75 22 117/53 (74) 99 03/07/19 04:00 77 03/07/19 03:30 75 22 152/59 (90) 100 03/07/19 03:05 70 24 40 03/07/19 03:00 69 24 136/54 (81) 99 03/07/19 03:00 23 Mechanical Ventilator 40 03/07/19 02:30 70 24 129/48 (75) 100 03/07/19 02:00 71 24 129/47 (74) 100 03/07/19 02:00 23 Mechanical Ventilator 40 03/07/19 01:30 73 23 128/53 (78) 100 03/07/19 01:13 71 24 100 Mechanical Ventilator 40 03/07/19 01:03 71 24 100 Mechanical Ventilator 40 03/07/19 01:03 71 24 40 03/07/19 01:00 22 Mechanical Ventilator 40 03/07/19 01:00 71 23 134/54 (80) 100 03/07/19 00:30 68 24 128/56 (80) 98 03/07/19 00:00 Mechanical Ventilator Mechanical Ventilator 03/07/19 00:00 68 03/07/19 00:00 99.0 69 24 129/52 (77) 100 03/07/19 00:00 23 Mechanical Ventilator 40 03/07/19 00:00 40 03/06/19 23:30 68 24 131/48 (75) 99 03/06/19 23:00 22 Mechanical Ventilator 40 03/06/19 23:00 68 24 132/47 (75) 100 03/06/19 22:52 98.9 03/06/19 22:46 69 24 40 03/06/19 22:30 69 24 130/46 (74) 99 03/06/19 22:16 22 Mechanical Ventilator 40 03/06/19 22:02 128/47 03/06/19 22:02 128/47 03/06/19 22:00 69 23 131/52 (78) 100 03/06/19 22:00 23 Mechanical Ventilator 40 03/06/19 21:45 70 24 128/47 (74) 100 03/06/19 21:30 22 Mechanical Ventilator 40 03/06/19 21:30 68 24 132/48 (76) 100 7/16/19 21:15 23 Mechanical Ventilator 40 03/06/19 21:15 70 24 138/52 (80) 100 03/06/19 21:00 72 23 136/50 (78) 100 03/06/19 21:00 23 Mechanical Ventilator 40 03/06/19 20:50 72 24 40 03/06/19 20:32 71 123/47 03/06/19 20:30 70 24 115/45 (68) 98 03/06/19 20:00 98.9 72 22 123/47 (72) 98 03/06/19 20:00 22 Mechanical Ventilator 40 03/06/19 20:00 Mechanical Ventilator Mechanical Ventilator 03/06/19 20:00 74 03/06/19 20:00 40 03/06/19 19:30 79 25 132/58 (82) 100 03/06/19 19:13 79 26 100 Mechanical Ventilator 40 03/06/19 19:03 75 24 100 Mechanical Ventilator 40 03/06/19 19:03 75 24 40 03/06/19 19:00 24 Mechanical Ventilator 40 03/06/19 19:00 83 19 131/53 (79) 99 03/06/19 18:30 68 22 131/51 (77) 99 03/06/19 18:01 24 Mechanical Ventilator 40 03/06/19 18:00 69 24 128/49 (75) 100 03/06/19 17:00 24 Mechanical Ventilator 40 03/06/19 17:00 81 23 150/67 (94) 99 03/06/19 16:55 80 24 40 03/06/19 16:30 83 16 147/63 (91) 100 03/06/19 16:00 40 03/06/19 16:00 24 Mechanical Ventilator 24 03/06/19 16:00 78 03/06/19 16:00 99.0 78 17 127/61 (83) 99 03/06/19 16:00 Mechanical Ventilator Mechanical Ventilator 03/06/19 15:30 78 17 120/52 (74) 98 03/06/19 15:00 81 22 119/45 (69) 98 03/06/19 15:00 24 Mechanical Ventilator 40 03/06/19 15:00 24 Mechanical Ventilator 40 03/06/19 14:45 82 16 40 03/06/19 14:30 83 19 131/53 (79) 99 03/06/19 14:00 86 18 126/57 (80) 97 03/06/19 14:00 24 Mechanical Ventilator 40 03/06/19 13:30 136/116 (123) 91 03/06/19 13:14 136/53 03/06/19 13:13 136/53 03/06/19 13:00 24 Mechanical Ventilator 40 03/06/19 13:00 88 22 148/65 (92) 96 03/06/19 12:46 101 27 99 Mechanical Ventilator 40 03/06/19 12:44 96 29 40 03/06/19 12:40 100 33 99 Mechanical Ventilator 40 03/06/19 12:30 85 23 158/110 (126) 99 03/06/19 12:00 Mechanical Ventilator Mechanical Ventilator 03/06/19 12:00 98.8 88 23 159/69 (99) 97 03/06/19 12:00 24 Mechanical Ventilator 40 03/06/19 12:00 93 03/06/19 12:00 40 03/06/19 11:30 84 21 152/64 (93) 100 03/06/19 11:00 87 19 143/62 (89) 99 03/06/19 11:00 24 Mechanical Ventilator 40 03/06/19 10:37 86 30 40 03/06/19 10:30 89 25 134/53 (80) 99 03/06/19 10:00 24 Mechanical Ventilator 40 03/06/19 10:00 93 17 148/55 (86) 98 03/06/19 09:30 97 18 149/57 (87) 98 03/06/19 09:14 100 03/06/19 09:00 99 21 153/69 (97) 99 03/06/19 09:00 24 Mechanical Ventilator 40 03/06/19 09:00 89 136/53 03/06/19 09:00 89 136/53 03/06/19 08:40 105 25 40 03/06/19 08:30 86 22 133/59 (83) 100 03/06/19 08:00 98.9 86 19 144/52 (82) 100 03/06/19 08:00 24 Mechanical Ventilator 40 03/06/19 08:00 85 03/06/19 08:00 40 03/06/19 08:00 Mechanical Ventilator Mechanical Ventilator Intake and Output 03/06/19 03/07/19 19:00 07:00 Intake Total 1353.416 ml 907 ml Output Total 1450 ml 1150 ml Balance -96.584 ml -243 ml Free Water 120 ml IV Total 717.416 ml 314 ml Tube Feeding 516 ml 473 ml Other 120 ml Output Urine Total 1350 ml 1150 ml Stool Total 100 ml Laboratory Tests 03/06/19 08:00: White Blood Count 2.8L, Red Blood Count 2.70L, Hemoglobin 7.8L, Hematocrit 23.8L , Mean Corpuscular Volume 88, Mean Corpuscular Hemoglobin 28.9, Mean Corpuscular Hemoglobin Concent 32.8, Red Cell Distribution Width 16.4H, Platelet Count 85L, Mean Platelet Volume 6.3L, Neutrophils (%) (Auto) , Lymphocytes (%) (Auto) , Monocytes (%) (Auto) , Eosinophils (%) (Auto) , Basophils (%) (Auto) , Differential Total Cells Counted 100, Neutrophils % ( Manual) 49, Lymphocytes % (Manual) 42, Monocytes % (Manual) 7, Eosinophils % ( Manual) 2, Basophils % (Manual) 0, Band Neutrophils 0, Platelet Estimate DecreasedL, Platelet Morphology Normal, Anisocytosis 1+, Phosphorus Level 2.5, Magnesium Level 1.7L 03/07/19 04:20: White Blood Count 2.7L, Red Blood Count 2.88L, Hemoglobin 8.3L, Hematocrit 25.0L , Mean Corpuscular Volume 87, Mean Corpuscular Hemoglobin 28.7, Mean Corpuscular Hemoglobin Concent 33.1, Red Cell Distribution Width 16.2H, Platelet Count 94L, Mean Platelet Volume 6.3L, Neutrophils (%) (Auto) , Lymphocytes (%) (Auto) , Monocytes (%) (Auto) , Eosinophils (%) (Auto) , Basophils (%) (Auto) , Neutrophils % (Manual) [Pending], Lymphocytes % (Manual) [Pending], Platelet Estimate [Pending], Platelet Morphology [Pending], Sodium Level 136, Potassium Level 3.6, Chloride Level 100, Carbon Dioxide Level 31, Anion Gap 5, Blood Urea Nitrogen 25H, Creatinine 1.8H, Estimat Glomerular Filtration Rate 38.8, Glucose Level 148H, Calcium Level 8.4L, Total Bilirubin 0.5, Aspartate Amino Transf (AST/SGOT) 41H, Alanine Aminotransferase (ALT/SGPT) 50, Alkaline Phosphatase 137H, Total Protein 5.2L, Albumin 2.0L, Globulin 3.2, Albumin/Globulin Ratio 0.6L Height (Feet): 6 Height (Inches): 0.00 Weight (Pounds): 250 General Appearance: no apparent distress EENT: other - tracheostomy Neck: normal alignment Cardiovascular: normal rate Respiratory/Chest: decreased breath sounds Abdomen: normal bowel sounds Pelvis: normal external exam Objective Current Medications Medications (Trade) Dose Ordered Sig/Marquis Route PRN Reason Start Time Stop Time Status Last Admin Dose Admin Acetaminophen (Tylenol) 650 mg Q4H PRN ORAL Mild Pain (Pain Scale 1-3) 02/07/19 11:15 03/08/19 17:29 03/04/19 12:34 Acetaminophen/ Butalbital/ Caffeine (Fioricet) 1 tab Q8H PRN ORAL For Headache 02/08/19 17:15 03/10/19 17:14 Albuterol/ Ipratropium (Albuterol/ Ipratropium) 3 ml Q6HRT HHN 03/03/19 19:00 03/08/19 18:59 03/07/19 01:03 Amlodipine Besylate (Norvasc) 10 mg DAILY NG 02/15/19 09:00 03/14/19 15:59 03/06/19 09:00 Artificial Tears (Lacri-Lube) 1 applic AC+HS BOTH EYES 02/18/19 06:30 03/20/19 06:29 03/07/19 05:42 Bisacodyl (Dulcolax) 5 mg DAILYPRN PRN ORAL Constipation 02/08/19 17:15 03/10/19 17:14 02/25/19 12:45 Chlorhexidine Gluconate (Jessy-Hex 2%) 1 applic DAILY@2000 TOPIC 02/25/19 20:00 03/27/19 19:59 03/06/19 20:31 Clonidine HCl (Catapres tab) 0.2 mg EVERY 8 HOURS NG 03/02/19 22:00 03/19/19 13:59 03/07/19 05:42 Dextrose (Dextrose 50%) 25 ml Q30M PRN IV Hypoglycemia 03/01/19 07:15 03/31/19 07:14 Dextrose (Dextrose 50%) 50 ml Q30M PRN IV Hypoglycemia 03/01/19 07:15 03/31/19 07:14 03/05/19 05:32 Docusate Sodium (Colace) 100 mg TID GT 02/12/19 18:00 03/12/19 08:59 03/06/19 18:00 Fentanyl Citrate 2500 mcg/Sodium Chloride 250 ml @ 0 mls/hr Q24H IV 03/03/19 00:00 03/10/19 00:00 03/06/19 22:16 Fluconazole/ Sodium Chloride 100 ml @ 100 mls/hr Q24H IV 03/03/19 18:00 03/10/19 17:59 03/06/19 18:01 Furosemide (Lasix) 20 mg DAILY IV 03/06/19 09:00 03/31/19 08:59 03/06/19 09:00 Heparin Sodium (Porcine) (Heparin 5000 units/ml) 5,000 units EVERY 12 HOURS SUBQ 03/06/19 21:00 04/05/19 20:59 03/06/19 21:16 Hydralazine HCl (Apresoline) 10 mg Q4H PRN IV bp over 165 syst 02/17/19 10:15 03/19/19 10:14 02/19/19 14:45 Hydralazine HCl (Apresoline) 50 mg Q8HR NG 02/22/19 14:00 03/21/19 21:59 03/07/19 05:42 Insulin Aspart (NovoLOG) EVERY 6 HOURS SUBQ 02/26/19 12:00 03/28/19 11:59 03/07/19 05:44 Insulin Detemir (Levemir) 10 units Q12HR SUBQ 03/05/19 09:00 04/01/19 20:59 03/06/19 20:40 Lorazepam (Ativan 2mg/ml 1ml) 2 mg Q2H PRN IV For Anxiety 03/06/19 19:45 03/13/19 19:44 Meropenem 1 gm/ Sodium Chloride 55 ml @ 110 mls/hr Q12HR IVPB 03/06/19 21:00 03/11/19 20:59 03/06/19 20:32 Metoclopramide HCl (Reglan) 5 mg Q8H IVP 02/26/19 09:00 03/28/19 08:59 03/07/19 01:29 Metolazone (Zaroxolyn) 10 mg DAILY NG 02/19/19 10:00 03/21/19 09:59 03/06/19 09:30 Metoprolol Tartrate (Lopressor) 100 mg Q12HR ORAL 02/22/19 21:00 03/08/19 20:59 03/06/19 20:32 Midazolam HCl (Versed 2mg/2ml vial) 1 mg Q2H PRN IVP Agitation 02/13/19 08:45 03/15/19 08:44 03/06/19 13:19 Neomycin/ Polymyxin/ Dexamethasone (Maxitrol Opth Oint) 1 applic BEDTIME BOTH EYES 02/18/19 21:00 03/20/19 20:59 03/06/19 20:31 Nitroglycerin (Ntg) 0.4 mg Q5M PRN SL Prn Chest Pain 02/07/19 11:00 03/08/19 17:29 02/08/19 07:42 Ondansetron HCl (Zofran) 4 mg Q6H PRN IVP Nausea & Vomiting 02/07/19 11:15 03/08/19 11:14 02/09/19 00:58 Pantoprazole (Protonix) 40 mg DAILY IVP 02/26/19 09:00 03/24/19 20:59 03/06/19 09:00 Patient Own Medication (Patient's Own Med) 1 ea BID ORAL 02/07/19 18:00 03/09/19 17:59 03/06/19 18:00 Patient Own Medication (Patient's Own Med) 1 ea DAILY ORAL 03/07/19 09:00 04/04/19 11:59 Patient Own Medication (Patient's Own Med) 2 ea DAILY ORAL 02/08/19 09:00 03/10/19 08:59 03/06/19 09:01 Polyethylene Glycol (Miralax) 17 gm BEDTIME ORAL 02/08/19 21:00 03/10/19 20:59 03/03/19 21:01 Sennosides (Senokot) 8.6 mg DAILY ORAL 02/13/19 12:00 03/15/19 11:59 03/06/19 09:00 Trimethoprim/ Sulfamethoxazole (Bactrim-DS) 1 tab DAILY ORAL 03/04/19 09:00 03/11/19 08:59 03/06/19 09:01 Vancomycin HCl (Vanco rx to dose) 1 ea DAILY PRN MISC Per rx protocol 03/03/19 11:00 04/02/19 10:59 Vancomycin HCl 1 gm/Dextrose 275 ml @ 183.708 mls/hr Q24H IVPB 03/05/19 09:00 03/10/19 08:59 03/06/19 09:30 Carlito Nichols MD Mar 07, 2019 07:03
--- NOTE | 2019-03-07 07:35 | NUR ---
NURSE NOTES: Received report from Keyla ZARATE. Patient opens eyes spontaneously. withdraws to pain. AAOX1. pt on monitor vss. Trach to vent. Shiley 8.0, AC 24, VT 550, PEEP 5, FiO2 40%. diminished lung sounds and rhonchi noted. secretions phipps, thick. abdomen round, non tender. rectal tube draining loose brown stool. g.t in tact, abdominal binder present. tube feeding Receiving Glucerna 1.5 43 ml/hr. No residual. Rt upper arm PICC, ongoing Fentanyl drip at 150mcg/hr. GT patent and intact. Dressing dry. Simon connected, light scott. bilateral wrist restraints intact. SCDs in place. On P200 mattress. HOB elevated. Bed alarm on. Call light within reach. Bed locked and in low position.
[2019-03-07] MEDS: LORazepam Inj 2mg/ml 1ml IV PRN ×3 (07:51→21:00)
--- NOTE | 2019-03-07 08:51 | Neurology Progress Note ---
Interim History Interim History ROS Limited/Unobtainable: Yes Complaints: AMS Interim History no changes on exam, more alert and following midline commands Objective Physical Exam Last Vital Signs Date Time Temp Pulse Resp B/P (MAP) Pulse Ox O2 Delivery O2 Flow Rate FiO2 03/07/19 07:17 80 20 100 Mechanical Ventilator 40 03/07/19 07:00 121/55 (77) 03/07/19 04:00 98.9 02/26/19 12:53 75.0 Laboratory Tests Test 03/07/19 04:20 03/07/19 07:34 White Blood Count 2.7 K/UL (4.8-10.8) L Red Blood Count 2.88 M/UL (4.70-6.10) L Hemoglobin 8.3 G/DL (14.2-18.0) L Hematocrit 25.0 % (42.0-52.0) L Mean Corpuscular Volume 87 FL (80-99) Mean Corpuscular Hemoglobin 28.7 PG (27.0-31.0) Mean Corpuscular Hemoglobin Concent 33.1 G/DL (32.0-36.0) Red Cell Distribution Width 16.2 % (11.6-14.8) H Platelet Count 94 K/UL (150-450) L Mean Platelet Volume 6.3 FL (6.5-10.1) L Neutrophils (%) (Auto) % (45.0-75.0) Lymphocytes (%) (Auto) % (20.0-45.0) Monocytes (%) (Auto) % (1.0-10.0) Eosinophils (%) (Auto) % (0.0-3.0) Basophils (%) (Auto) % (0.0-2.0) Differential Total Cells Counted 100 Neutrophils % (Manual) 42 % (45-75) L Lymphocytes % (Manual) 42 % (20-45) Monocytes % (Manual) 11 % (1-10) H Eosinophils % (Manual) 5 % (0-3) H Basophils % (Manual) 0 % (0-2) Band Neutrophils 0 % (0-8) Platelet Estimate Decreased L Platelet Morphology Normal Anisocytosis 1+ Sodium Level 136 MMOL/L (136-145) Potassium Level 3.6 MMOL/L (3.5-5.1) Chloride Level 100 MMOL/L (98-107) Carbon Dioxide Level 31 MMOL/L (21-32) Anion Gap 5 mmol/L (5-15) Blood Urea Nitrogen 25 mg/dL (7-18) H Creatinine 1.8 MG/DL (0.55-1.30) H Estimat Glomerular Filtration Rate 38.8 mL/min (>60) Glucose Level 148 MG/DL (74-106) H Calcium Level 8.4 MG/DL (8.5-10.1) L Total Bilirubin 0.5 MG/DL (0.2-1.0) Aspartate Amino Transf (AST/SGOT) 41 U/L (15-37) H Alanine Aminotransferase (ALT/SGPT) 50 U/L (12-78) Alkaline Phosphatase 137 U/L (46-116) H Total Protein 5.2 G/DL (6.4-8.2) L Albumin 2.0 G/DL (3.4-5.0) L Globulin 3.2 g/dL Albumin/Globulin Ratio 0.6 (1.0-2.7) L Vancomycin Level Trough 8.1 ug/mL (5.0-12.0) General: well developed, well nourished, other Head: normocophalic, other Neck: no rigidity EENT: benign, other Neurologic Exam Mental Status: awake, other Speech: other Language: other Cranial Nerve II: other Cranial Nerves III, IV, : other Cranial Nerve V: other Cranial Nerve VII: other Cranial Nerve VIII: other Cranial Nerve IX: other Cranial Nerve X: other Cranial Nerve XI: other Cranial Nerve XII: other Motor System: other Sensory: other Coordination: other Deep Tendon Reflexes: 0 bicep (L), 0 bicep (R), 0 tricep (L), 0 tricep (R), 0 brachioradialis (L), 0 brachioradialis (R), 0 knee (L), 0 knee (R), 0 ankle (L) , 0 ankle (R) Reflexes: mute plantar (L), mute plantar (R) Stance: other Gait: other Objective sp trach awake, can tell me his name pupils are symmetric and reactive corneals present Antigravity in all 4 symmetric Impression/Recommendations Problems: (1) AIDS (2) Anemia (3) Anxiety (4) Diabetes (5) Hypertension (6) HIV disease (7) CKD (chronic kidney disease) (8) History of stroke (9) NSTEMI (non-ST elevated myocardial infarction) (10) MDD (major depressive disorder), recurrent episode, moderate (11) Respiratory distress (12) Hypoxia (13) HIV (human immunodeficiency virus infection) (14) Acute coronary syndrome (15) Elevated troponin (16) Pneumonia (17) Acute hypoxemic respiratory failure (18) Endotracheally intubated (19) ISH (acute kidney injury) (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 (33) acute small R pontomedullary and left cerebellar peduncle strokes. 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
--- NOTE | 2019-03-07 09:00 | NUR ---
NURSE NOTES: Currently on Fentanyl 120mcg/hr. Patient opens eyes to voice, then goes back to sleep. RASS -1. Will continue to monitor.
[2019-03-07] MEDS: Vancomycin 1.25gm Premix IVPB SCH (09:23)
[2019-03-07] MEDS: Meropenem 1 GM in NS 55 ML IVPB SCH ×2 (09:24→20:41)
[2019-03-07] MEDS: RALTEGRAVIR 400 MG ORAL SCH ×2 (09:25→17:44)
[2019-03-07] MEDS: TENOFOVIR DISOPROXIL FUMARATE 300 MG ORAL SCH (09:25)
[2019-03-07] MEDS: ETRAVIRINE 200 MG ORAL SCH (09:25)
[2019-03-07] MEDS: Pantoprazole Inj IVP SCH (09:26)
[2019-03-07] MEDS: Docusate 100mg/10ml Liq GT SCH ×3 (09:26→17:43)
--- NOTE | 2019-03-07 09:26 | NUR ---
RD ASSESSMENT & RECOMMENDATIONS SEE CARE ACTIVITY FOR COMPLETE ASSESSMENT DAILY ESTIMATED NEEDS: Needs based on Critical care, HIV 85kg adj 22-30 kcals/kg 8501-1479 total kcals 1.2-2 g protein/kg 102-170 g total protein 25-30 mL/kg 3109-2107 total fluid mLs NUTRITION DIAGNOSIS: *Swallowing difficulty r/t respiratory status as evidenced by ICU status, unable to wean, now s/p trach and PEG placement, on GT feeding. * Altered nutrition related lab values R/T clinical condition, ISH, DM as evidenced by elev K (5.8- now wnl->5.5 -> wnl), elev creat (1.5->3.9->2.6-> 1.8), elev phos (5.5-> wnl), A1C 7.0. CURRENT TF:Glucerna 1.5 @ 43ml/hr x 24 hrs ENTERAL NUTRITION RECOMMENDATIONS: Glucerna 1.5 @ 52ml/hr x 24 hrs to provide 1248ml, 1872kcal, 103g prot, 947ml free water - Increase goal rate to 52ml/hr x 24 hrs to meet 100% est kcal/prot needs - Flush per MD/ HOB over 30 degrees W/ CONSISTENTLY ELEV K, REC NEPRO @ 43ML/HR X 24 HRS + PROSOURCE 1PKT BID TO PROVIDE 1032ml, 1857 kcal (+80 kcal), 83g prot (+22g prot), 750ml free water ADDITIONAL RECOMMENDATIONS: 1) CALIBRATED BEDSCALE WT, weekly wts 2) Monitor renal fxn, K and Phos- K and phos now wnl, renal fxn improved. -> Monitor need to change TF back to Nepro 3) Monitor TF tolerance -> Now on reglan 4) Pt w/ rectal tube: rec to hold all stool softeners - .
[2019-03-07] MEDS: Bactrim-DS 1 tab ORAL SCH (09:29)
[2019-03-07] MEDS: Sennosides 8.6mg tab ORAL SCH (09:30)
[2019-03-07] MEDS: Levemir Flexpen SUBQ SCH ×2 (09:37→20:44)
[2019-03-07] MEDS: Heparin 5000 units/ml inj SUBQ SCH ×2 (09:38→20:44)
[2019-03-07 10:41] LABS: PHOSPHORUS 2.1 MG/DL (2.5-4.9)
--- NOTE | 2019-03-07 11:15 | GI Progress Note ---
Assessment/Plan Problems: (1) Anemia ICD Codes: D64.9 - Anemia, unspecified SNOMED: 044933387 (2) Anxiety ICD Codes: F41.9 - Anxiety disorder, unspecified SNOMED: 60293445 (3) Anemia ICD Codes: D64.9 - Anemia, unspecified SNOMED: 249437246 (4) Uncontrolled type 2 diabetes mellitus with chronic kidney disease ICD Codes: E11.22 - Type 2 diabetes mellitus with diabetic chronic kidney disease; E11.65 - Type 2 diabetes mellitus with hyperglycemia SNOMED: 43950518, 873448442, 111554612 Status: stable Status Narrative Discussed with Dr. Ricketts. Assessment/Plan 1. History of HIV. 2. Hypertension. 3. Vertigo. 4. History of headaches. 5. History of diabetes. 6. Respiratory failure 7. Dysphagia 8. ileus s/p PEG GTFs per RD GT site care daily/prn prn transfusions ppi electrolyte replacement follow labs The patient was seen and examined at bedside and all new and available data was reviewed in the patients chart. I agree with the above findings, impression and plan. (Patient seen earlier today. Signature stamp does not reflect patient encounter time.). - Kg Ricketts MD Subjective Subjective limited Objective Last 24 Hour Vital Signs Date Time Temp Pulse Resp B/P (MAP) Pulse Ox O2 Delivery O2 Flow Rate FiO2 03/07/19 10:00 80 20 129/56 (80) 100 03/07/19 09:29 82 131/53 03/07/19 09:29 81 131/53 03/07/19 09:02 40 03/07/19 09:00 87 18 113/46 (68) 100 03/07/19 09:00 82 20 40 03/07/19 08:30 85 20 103/43 (63) 100 03/07/19 08:00 100.0 91 17 144/57 (86) 100 03/07/19 08:00 Mechanical Ventilator Mechanical Ventilator 03/07/19 08:00 40 03/07/19 07:30 92 16 136/74 (94) 99 03/07/19 07:20 40 03/07/19 07:17 80 20 100 Mechanical Ventilator 40 03/07/19 07:05 80 20 100 Mechanical Ventilator 40 03/07/19 07:00 74 25 121/55 (77) 100 03/07/19 07:00 80 24 40 40 03/07/19 06:30 74 20 128/54 (78) 100 03/07/19 06:00 73 24 153/56 (88) 100 03/07/19 06:00 Mechanical Ventilator 40 03/07/19 05:45 77 21 136/58 (84) 100 03/07/19 05:42 136/56 03/07/19 05:42 136/56 03/07/19 05:30 71 22 136/56 (82) 100 03/07/19 05:15 71 24 132/53 (79) 100 03/07/19 05:02 71 25 40 03/07/19 05:00 21 Mechanical Ventilator 40 03/07/19 05:00 74 19 127/85 (99) 100 03/07/19 04:45 71 22 137/55 (82) 100 03/07/19 04:30 72 20 132/58 (82) 100 03/07/19 04:00 40 03/07/19 04:00 Mechanical Ventilator Mechanical Ventilator 03/07/19 04:00 22 Mechanical Ventilator 40 03/07/19 04:00 98.9 75 22 117/53 (74) 99 03/07/19 04:00 77 03/07/19 03:30 75 22 152/59 (90) 100 03/07/19 03:05 70 24 40 03/07/19 03:00 69 24 136/54 (81) 99 03/07/19 03:00 23 Mechanical Ventilator 40 03/07/19 02:30 70 24 129/48 (75) 100 03/07/19 02:00 71 24 129/47 (74) 100 03/07/19 02:00 23 Mechanical Ventilator 40 03/07/19 01:30 73 23 128/53 (78) 100 03/07/19 01:13 71 24 100 Mechanical Ventilator 40 03/07/19 01:03 71 24 100 Mechanical Ventilator 40 03/07/19 01:03 71 24 40 03/07/19 01:00 22 Mechanical Ventilator 40 03/07/19 01:00 71 23 134/54 (80) 100 03/07/19 00:30 68 24 128/56 (80) 98 03/07/19 00:00 Mechanical Ventilator Mechanical Ventilator 03/07/19 00:00 68 03/07/19 00:00 99.0 69 24 129/52 (77) 100 03/07/19 00:00 23 Mechanical Ventilator 40 03/07/19 00:00 40 03/06/19 23:30 68 24 131/48 (75) 99 03/06/19 23:00 22 Mechanical Ventilator 40 03/06/19 23:00 68 24 132/47 (75) 100 03/06/19 22:52 98.9 03/06/19 22:46 69 24 40 03/06/19 22:30 69 24 130/46 (74) 99 03/06/19 22:16 22 Mechanical Ventilator 40 03/06/19 22:02 128/47 03/06/19 22:02 128/47 03/06/19 22:00 69 23 131/52 (78) 100 03/06/19 22:00 23 Mechanical Ventilator 40 03/06/19 21:45 70 24 128/47 (74) 100 03/06/19 21:30 22 Mechanical Ventilator 40 03/06/19 21:30 68 24 132/48 (76) 100 03/06/19 21:15 23 Mechanical Ventilator 40 03/06/19 21:15 70 24 138/52 (80) 100 03/06/19 21:00 72 23 136/50 (78) 100 03/06/19 21:00 23 Mechanical Ventilator 40 03/06/19 20:50 72 24 40 03/06/19 20:32 71 123/47 03/06/19 20:30 70 24 115/45 (68) 98 03/06/19 20:00 98.9 72 22 123/47 (72) 98 03/06/19 20:00 22 Mechanical Ventilator 40 03/06/19 20:00 Mechanical Ventilator Mechanical Ventilator 03/06/19 20:00 74 03/06/19 20:00 40 03/06/19 19:30 79 25 132/58 (82) 100 03/06/19 19:13 79 26 100 Mechanical Ventilator 40 03/06/19 19:03 75 24 100 Mechanical Ventilator 40 03/06/19 19:03 75 24 40 03/06/19 19:00 24 Mechanical Ventilator 40 03/06/19 19:00 83 19 131/53 (79) 99 03/06/19 18:30 68 22 131/51 (77) 99 03/06/19 18:01 24 Mechanical Ventilator 40 03/06/19 18:00 69 24 128/49 (75) 100 03/06/19 17:00 24 Mechanical Ventilator 40 03/06/19 17:00 81 23 150/67 (94) 99 03/06/19 16:55 80 24 40 03/06/19 16:30 83 16 147/63 (91) 100 03/06/19 16:00 40 03/06/19 16:00 24 Mechanical Ventilator 24 03/06/19 16:00 78 03/06/19 16:00 99.0 78 17 127/61 (83) 99 03/06/19 16:00 Mechanical Ventilator Mechanical Ventilator 03/06/19 15:30 78 17 120/52 (74) 98 03/06/19 15:00 81 22 119/45 (69) 98 03/06/19 15:00 24 Mechanical Ventilator 40 03/06/19 15:00 24 Mechanical Ventilator 40 03/06/19 14:45 82 16 40 03/06/19 14:30 83 19 131/53 (79) 99 03/06/19 14:00 86 18 126/57 (80) 97 03/06/19 14:00 24 Mechanical Ventilator 40 03/06/19 13:30 136/116 (123) 91 03/06/19 13:14 136/53 03/06/19 13:13 136/53 03/06/19 13:00 24 Mechanical Ventilator 40 03/06/19 13:00 88 22 148/65 (92) 96 03/06/19 12:46 101 27 99 Mechanical Ventilator 40 03/06/19 12:44 96 29 40 03/06/19 12:40 100 33 99 Mechanical Ventilator 40 03/06/19 12:30 85 23 158/110 (126) 99 03/06/19 12:00 Mechanical Ventilator Mechanical Ventilator 03/06/19 12:00 98.8 88 23 159/69 (99) 97 03/06/19 12:00 24 Mechanical Ventilator 40 03/06/19 12:00 93 03/06/19 12:00 40 03/06/19 11:30 84 21 152/64 (93) 100 Intake and Output 03/06/19 03/07/19 19:00 07:00 Intake Total 1353.416 ml 950 ml Output Total 1450 ml 1225 ml Balance -96.584 ml -275 ml Free Water 120 ml IV Total 717.416 ml 314 ml Tube Feeding 516 ml 516 ml Other 120 ml Output Urine Total 1350 ml 1225 ml Stool Total 100 ml Laboratory Tests Test 03/07/19 04:20 03/07/19 07:34 White Blood Count 2.7 K/UL (4.8-10.8) L Red Blood Count 2.88 M/UL (4.70-6.10) L Hemoglobin 8.3 G/DL (14.2-18.0) L Hematocrit 25.0 % (42.0-52.0) L Mean Corpuscular Volume 87 FL (80-99) Mean Corpuscular Hemoglobin 28.7 PG (27.0-31.0) Mean Corpuscular Hemoglobin Concent 33.1 G/DL (32.0-36.0) Red Cell Distribution Width 16.2 % (11.6-14.8) H Platelet Count 94 K/UL (150-450) L Mean Platelet Volume 6.3 FL (6.5-10.1) L Neutrophils (%) (Auto) % (45.0-75.0) Lymphocytes (%) (Auto) % (20.0-45.0) Monocytes (%) (Auto) % (1.0-10.0) Eosinophils (%) (Auto) % (0.0-3.0) Basophils (%) (Auto) % (0.0-2.0) Differential Total Cells Counted 100 Neutrophils % (Manual) 42 % (45-75) L Lymphocytes % (Manual) 42 % (20-45) Monocytes % (Manual) 11 % (1-10) H Eosinophils % (Manual) 5 % (0-3) H Basophils % (Manual) 0 % (0-2) Band Neutrophils 0 % (0-8) Platelet Estimate Decreased L Platelet Morphology Normal Anisocytosis 1+ Sodium Level 136 MMOL/L (136-145) Potassium Level 3.6 MMOL/L (3.5-5.1) Chloride Level 100 MMOL/L (98-107) Carbon Dioxide Level 31 MMOL/L (21-32) Anion Gap 5 mmol/L (5-15) Blood Urea Nitrogen 25 mg/dL (7-18) H Creatinine 1.8 MG/DL (0.55-1.30) H Estimat Glomerular Filtration Rate 38.8 mL/min (>60) Glucose Level 148 MG/DL (74-106) H Calcium Level 8.4 MG/DL (8.5-10.1) L Phosphorus Level 2.1 MG/DL (2.5-4.9) L Magnesium Level 1.6 MG/DL (1.8-2.4) L Total Bilirubin 0.5 MG/DL (0.2-1.0) Aspartate Amino Transf (AST/SGOT) 41 U/L (15-37) H Alanine Aminotransferase (ALT/SGPT) 50 U/L (12-78) Alkaline Phosphatase 137 U/L (46-116) H Total Protein 5.2 G/DL (6.4-8.2) L Albumin 2.0 G/DL (3.4-5.0) L Globulin 3.2 g/dL Albumin/Globulin Ratio 0.6 (1.0-2.7) L Vancomycin Level Trough 8.1 ug/mL (5.0-12.0) Height (Feet): 6 Height (Inches): 0.00 Weight (Pounds): 250 General Appearance: no apparent distress Cardiovascular: normal rate Respiratory/Chest: normal breath sounds, no respiratory distress Abdominal Exam: normal bowel sounds, non tender, soft, GT site - c/d/i Extremities: non-tender Hortencia Zheng NP Mar 07, 2019 11:15
[2019-03-07] MEDS: fentaNYL Citrate 2,500 MCG in NS 200 ML IV SCH (11:22)
--- NOTE | 2019-03-07 11:30 | NUR ---
NURSE NOTES: MD CANTOR HERE TO SEE PT. OK TO KEEP AEROSOL PRN
--- NOTE | 2019-03-07 11:53 | Pulmonolgy Critical Care Note ---
Critical Care - Asmt/Plan Problems: (1) Endotracheally intubated (2) Acute hypoxemic respiratory failure (3) Pneumonia (4) NSTEMI (non-ST elevated myocardial infarction) (5) AIDS (6) HIV disease (7) Hypertension (8) MDD (major depressive disorder), recurrent episode, moderate (9) Anemia (10) CKD (chronic kidney disease) (11) History of stroke (12) Diabetes (13) Anxiety (14) Malignant hypertension (15) Occult blood positive stool Assessment/Plan: VDRF, extubated 02/19, re-intubated 02/20, trach 03/02, trach collar 03/07 S/P GT 03/05 Hemoptysis, hematemesis ARDS Acute respiratory failure B pulmonary infiltrates, ? multilobar CAP vs atypical infection vs other ? PJP AIDS (CD4 191) NSTEMI H/O prior CVA HTN HL DM with uncontrolled BS ISH on CKD Anemia, FOBT + PLAN: TC as able, return to vent if fatigues RTC and PRN HHN's Continue Abx & flucon per ID Off steroids Monitor volumes and renal function, cautious diuresis as able F/U cards recs: will need further ischemia eval/cath once stabilized DVT Px: Hep SQ Monitor for bleeding, F/U GI recs, transfuse PRN Hb < 7 F/U ENDO recs TF's FC, continue to discuss GOC D/W RN and RT @ bedside CCT 35 Critical Care - Objective Last 24 Hour Vital Signs Date Time Temp Pulse Resp B/P (MAP) Pulse Ox O2 Delivery O2 Flow Rate FiO2 03/07/19 11:22 Trach Collar 40 03/07/19 10:00 80 20 129/56 (80) 100 03/07/19 09:29 82 131/53 03/07/19 09:29 81 131/53 03/07/19 09:02 40 03/07/19 09:00 87 18 113/46 (68) 100 03/07/19 09:00 82 20 40 03/07/19 08:30 85 20 103/43 (63) 100 03/07/19 08:00 100.0 91 17 144/57 (86) 100 03/07/19 08:00 Mechanical Ventilator Mechanical Ventilator 03/07/19 08:00 40 03/07/19 07:30 92 16 136/74 (94) 99 03/07/19 07:20 40 03/07/19 07:17 80 20 100 Mechanical Ventilator 40 03/07/19 07:05 80 20 100 Mechanical Ventilator 40 03/07/19 07:00 74 25 121/55 (77) 100 03/07/19 07:00 80 24 40 40 03/07/19 06:30 74 20 128/54 (78) 100 03/07/19 06:00 73 24 153/56 (88) 100 03/07/19 06:00 Mechanical Ventilator 40 03/07/19 05:45 77 21 136/58 (84) 100 03/07/19 05:42 136/56 03/07/19 05:42 136/56 03/07/19 05:30 71 22 136/56 (82) 100 03/07/19 05:15 71 24 132/53 (79) 100 03/07/19 05:02 71 25 40 03/07/19 05:00 21 Mechanical Ventilator 40 03/07/19 05:00 74 19 127/85 (99) 100 03/07/19 04:45 71 22 137/55 (82) 100 03/07/19 04:30 72 20 132/58 (82) 100 03/07/19 04:00 40 03/07/19 04:00 Mechanical Ventilator Mechanical Ventilator 03/07/19 04:00 22 Mechanical Ventilator 40 03/07/19 04:00 98.9 75 22 117/53 (74) 99 03/07/19 04:00 77 03/07/19 03:30 75 22 152/59 (90) 100 03/07/19 03:05 70 24 40 03/07/19 03:00 69 24 136/54 (81) 99 03/07/19 03:00 23 Mechanical Ventilator 40 03/07/19 02:30 70 24 129/48 (75) 100 03/07/19 02:00 71 24 129/47 (74) 100 03/07/19 02:00 23 Mechanical Ventilator 40 03/07/19 01:30 73 23 128/53 (78) 100 03/07/19 01:13 71 24 100 Mechanical Ventilator 40 03/07/19 01:03 71 24 100 Mechanical Ventilator 40 03/07/19 01:03 71 24 40 03/07/19 01:00 22 Mechanical Ventilator 40 03/07/19 01:00 71 23 134/54 (80) 100 03/07/19 00:30 68 24 128/56 (80) 98 03/07/19 00:00 Mechanical Ventilator Mechanical Ventilator 03/07/19 00:00 68 03/07/19 00:00 99.0 69 24 129/52 (77) 100 03/07/19 00:00 23 Mechanical Ventilator 40 03/07/19 00:00 40 03/06/19 23:30 68 24 131/48 (75) 99 03/06/19 23:00 22 Mechanical Ventilator 40 03/06/19 23:00 68 24 132/47 (75) 100 03/06/19 22:52 98.9 03/06/19 22:46 69 24 40 03/06/19 22:30 69 24 130/46 (74) 99 03/06/19 22:16 22 Mechanical Ventilator 40 03/06/19 22:02 128/47 03/06/19 22:02 128/47 03/06/19 22:00 69 23 131/52 (78) 100 03/06/19 22:00 23 Mechanical Ventilator 40 03/06/19 21:45 70 24 128/47 (74) 100 03/06/19 21:30 22 Mechanical Ventilator 40 03/06/19 21:30 68 24 132/48 (76) 100 03/06/19 21:15 23 Mechanical Ventilator 40 03/06/19 21:15 70 24 138/52 (80) 100 03/06/19 21:00 72 23 136/50 (78) 100 03/06/19 21:00 23 Mechanical Ventilator 40 03/06/19 20:50 72 24 40 03/06/19 20:32 71 123/47 03/06/19 20:30 70 24 115/45 (68) 98 03/06/19 20:00 98.9 72 22 123/47 (72) 98 03/06/19 20:00 22 Mechanical Ventilator 40 03/06/19 20:00 Mechanical Ventilator Mechanical Ventilator 03/06/19 20:00 74 03/06/19 20:00 40 03/06/19 19:30 79 25 132/58 (82) 100 03/06/19 19:13 79 26 100 Mechanical Ventilator 40 03/06/19 19:03 75 24 100 Mechanical Ventilator 40 03/06/19 19:03 75 24 40 03/06/19 19:00 24 Mechanical Ventilator 40 03/06/19 19:00 83 19 131/53 (79) 99 03/06/19 18:30 68 22 131/51 (77) 99 03/06/19 18:01 24 Mechanical Ventilator 40 03/06/19 18:00 69 24 128/49 (75) 100 03/06/19 17:00 24 Mechanical Ventilator 40 03/06/19 17:00 81 23 150/67 (94) 99 03/06/19 16:55 80 24 40 03/06/19 16:30 83 16 147/63 (91) 100 03/06/19 16:00 40 03/06/19 16:00 24 Mechanical Ventilator 24 03/06/19 16:00 78 03/06/19 16:00 99.0 78 17 127/61 (83) 99 03/06/19 16:00 Mechanical Ventilator Mechanical Ventilator 03/06/19 15:30 78 17 120/52 (74) 98 03/06/19 15:00 81 22 119/45 (69) 98 03/06/19 15:00 24 Mechanical Ventilator 40 03/06/19 15:00 24 Mechanical Ventilator 40 03/06/19 14:45 82 16 40 03/06/19 14:30 83 19 131/53 (79) 99 03/06/19 14:00 86 18 126/57 (80) 97 03/06/19 14:00 24 Mechanical Ventilator 40 03/06/19 13:30 136/116 (123) 91 03/06/19 13:14 136/53 03/06/19 13:13 136/53 03/06/19 13:00 24 Mechanical Ventilator 40 03/06/19 13:00 88 22 148/65 (92) 96 03/06/19 12:46 101 27 99 Mechanical Ventilator 40 03/06/19 12:44 96 29 40 03/06/19 12:40 100 33 99 Mechanical Ventilator 40 03/06/19 12:30 85 23 158/110 (126) 99 03/06/19 12:00 Mechanical Ventilator Mechanical Ventilator 03/06/19 12:00 98.8 88 23 159/69 (99) 97 03/06/19 12:00 24 Mechanical Ventilator 40 03/06/19 12:00 93 03/06/19 12:00 40 Status: awake Condition: improving HEENT: atraumatic, normocephalic Lungs: rhonchi Heart: HR/BP stable Abdomen: soft, non-tender, active bowel sounds Extremities: no C/C/E Accucheck: 189 Blood Sugars: BS controlled Critical Care - Subjective ROS Limited/Unobtainable: Yes ICU Day: 27 Intubation Day: Trach Interval Events: Transitioned to TC No distress Condition: stable IV Access: PICC EKG Rhythm: Sinus Rhythm FI02: 40 Vent Support Breath Rate: 24 Vent Support Mode: CPAP Vent Tidal Volume: 550 Sputum Amount: Scant PEEP: 5.0 PIP: 30 Secretions: N/A Fluids: SLIV Drips: Fent @ 100 Tube Feeding Amount: 43 Residuals: 0 I&O: Intake and Output 03/06/19 03/07/19 19:00 07:00 Intake Total 1353.416 ml 950 ml Output Total 1450 ml 1225 ml Balance -96.584 ml -275 ml Free Water 120 ml IV Total 717.416 ml 314 ml Tube Feeding 516 ml 516 ml Other 120 ml Output Urine Total 1350 ml 1225 ml Stool Total 100 ml Subjective: No SOB no distress no cough ET-Tube: 7.5 ET Position: 24 Labs: Laboratory Tests Test 03/07/19 04:20 03/07/19 07:34 White Blood Count 2.7 K/UL (4.8-10.8) L Red Blood Count 2.88 M/UL (4.70-6.10) L Hemoglobin 8.3 G/DL (14.2-18.0) L Hematocrit 25.0 % (42.0-52.0) L Mean Corpuscular Volume 87 FL (80-99) Mean Corpuscular Hemoglobin 28.7 PG (27.0-31.0) Mean Corpuscular Hemoglobin Concent 33.1 G/DL (32.0-36.0) Red Cell Distribution Width 16.2 % (11.6-14.8) H Platelet Count 94 K/UL (150-450) L Mean Platelet Volume 6.3 FL (6.5-10.1) L Neutrophils (%) (Auto) % (45.0-75.0) Lymphocytes (%) (Auto) % (20.0-45.0) Monocytes (%) (Auto) % (1.0-10.0) Eosinophils (%) (Auto) % (0.0-3.0) Basophils (%) (Auto) % (0.0-2.0) Differential Total Cells Counted 100 Neutrophils % (Manual) 42 % (45-75) L Lymphocytes % (Manual) 42 % (20-45) Monocytes % (Manual) 11 % (1-10) H Eosinophils % (Manual) 5 % (0-3) H Basophils % (Manual) 0 % (0-2) Band Neutrophils 0 % (0-8) Platelet Estimate Decreased L Platelet Morphology Normal Anisocytosis 1+ Sodium Level 136 MMOL/L (136-145) Potassium Level 3.6 MMOL/L (3.5-5.1) Chloride Level 100 MMOL/L (98-107) Carbon Dioxide Level 31 MMOL/L (21-32) Anion Gap 5 mmol/L (5-15) Blood Urea Nitrogen 25 mg/dL (7-18) H Creatinine 1.8 MG/DL (0.55-1.30) H Estimat Glomerular Filtration Rate 38.8 mL/min (>60) Glucose Level 148 MG/DL (74-106) H Calcium Level 8.4 MG/DL (8.5-10.1) L Phosphorus Level 2.1 MG/DL (2.5-4.9) L Magnesium Level 1.6 MG/DL (1.8-2.4) L Total Bilirubin 0.5 MG/DL (0.2-1.0) Aspartate Amino Transf (AST/SGOT) 41 U/L (15-37) H Alanine Aminotransferase (ALT/SGPT) 50 U/L (12-78) Alkaline Phosphatase 137 U/L (46-116) H Total Protein 5.2 G/DL (6.4-8.2) L Albumin 2.0 G/DL (3.4-5.0) L Globulin 3.2 g/dL Albumin/Globulin Ratio 0.6 (1.0-2.7) L Vancomycin Level Trough 8.1 ug/mL (5.0-12.0) Brett Meredith MD Mar 07, 2019 11:53
--- NOTE | 2019-03-07 12:00 | NUR ---
NURSE NOTES: Currently on Fentanyl 190mcg/hr. Patient opens eyes to voice, then goes back to sleep. RASS -1. Will continue to monitor.
--- NOTE | 2019-03-07 12:15 | NUR ---
RADIOLOGY DEPT, CHEST X-RAY DONE.-P.DYE
[2019-03-07] MEDS: Midazolam 2mg/2ml Inj IVP PRN ×2 (12:17→22:49)
--- NOTE | 2019-03-07 12:30 | NUR ---
NURSE NOTES: PT RESTLESS, KICKING LEGS, PULLING AT RESTRAINTS, KICKING PILLOWS TO FLOOR AND KICKING LEGS. VERSED GIVEN 1MG/ 1ML IVP. WILL MONITOR PT CLOSELY
--- NOTE | 2019-03-07 13:13 | NUR ---
NURSE NOTES: MD HERRERA HERE TO SEE PT. NO NEW ORDERS.
--- NOTE | 2019-03-07 13:20 | Nephrology Progress Note ---
Assessment/Plan Problem List: (1) ISH (acute kidney injury) Assessment: Cr lowering (2) HIV (human immunodeficiency virus infection) (3) NSTEMI (non-ST elevated myocardial infarction) Assessment: troponin decreasing (4) Hypoxia (5) Anemia (6) Diabetes Assessment Acute Renal failure- Cr leveling- Urine out put is good Acidosis improved Acute respiratory failure- Require intubation and Mechanical Ventilation- Anemia- Elevated troponin / OH HTN DM HIV Antibody + Plan Trach 03/02 mag and K and Phos supplement as needed adjust BP meds on feeding IV protonix transfusiosn as needed BP med adjustment UA and urine studies Avoid Nephrotoxics as possible Monitor renal parameters keep BP and BS in check Per orders No HD at this time Kidney RADHA noted adjust BP meds add Isordil Subjective ROS Limited/Unobtainable: Yes Objective Objective Last 24 Hour Vital Signs Date Time Temp Pulse Resp B/P (MAP) Pulse Ox O2 Delivery O2 Flow Rate FiO2 03/07/19 13:14 74 20 100 Mechanical Ventilator 40 03/07/19 13:06 75 20 100 Trach Collar 12.0 40 03/07/19 13:06 76 20 40 03/07/19 13:00 74 20 134/54 (80) 100 03/07/19 12:30 74 16 137/54 (81) 100 03/07/19 12:00 Mechanical Ventilator Mechanical Ventilator 03/07/19 12:00 98.9 74 17 141/100 (114) 100 03/07/19 11:30 72 17 134/56 (82) 100 03/07/19 11:22 Trach Collar 40 03/07/19 11:01 75 20 40 03/07/19 11:00 73 20 130/52 (78) 99 03/07/19 10:00 80 20 129/56 (80) 100 03/07/19 09:29 82 131/53 03/07/19 09:29 81 131/53 03/07/19 09:02 40 03/07/19 09:00 87 18 113/46 (68) 100 03/07/19 09:00 82 20 40 03/07/19 08:30 85 20 103/43 (63) 100 03/07/19 08:00 100.0 91 17 144/57 (86) 100 03/07/19 08:00 Mechanical Ventilator Mechanical Ventilator 03/07/19 08:00 40 03/07/19 07:30 92 16 136/74 (94) 99 03/07/19 07:20 40 03/07/19 07:17 80 20 100 Mechanical Ventilator 40 03/07/19 07:05 80 20 100 Mechanical Ventilator 40 03/07/19 07:00 74 25 121/55 (77) 100 03/07/19 07:00 80 24 40 40 03/07/19 06:30 74 20 128/54 (78) 100 03/07/19 06:00 73 24 153/56 (88) 100 03/07/19 06:00 Mechanical Ventilator 40 03/07/19 05:45 77 21 136/58 (84) 100 03/07/19 05:42 136/56 03/07/19 05:42 136/56 03/07/19 05:30 71 22 136/56 (82) 100 03/07/19 05:15 71 24 132/53 (79) 100 03/07/19 05:02 71 25 40 03/07/19 05:00 21 Mechanical Ventilator 40 03/07/19 05:00 74 19 127/85 (99) 100 03/07/19 04:45 71 22 137/55 (82) 100 03/07/19 04:30 72 20 132/58 (82) 100 03/07/19 04:00 40 03/07/19 04:00 Mechanical Ventilator Mechanical Ventilator 03/07/19 04:00 22 Mechanical Ventilator 40 03/07/19 04:00 98.9 75 22 117/53 (74) 99 03/07/19 04:00 77 03/07/19 03:30 75 22 152/59 (90) 100 03/07/19 03:05 70 24 40 03/07/19 03:00 69 24 136/54 (81) 99 03/07/19 03:00 23 Mechanical Ventilator 40 03/07/19 02:30 70 24 129/48 (75) 100 03/07/19 02:00 71 24 129/47 (74) 100 03/07/19 02:00 23 Mechanical Ventilator 40 03/07/19 01:30 73 23 128/53 (78) 100 03/07/19 01:13 71 24 100 Mechanical Ventilator 40 03/07/19 01:03 71 24 100 Mechanical Ventilator 40 03/07/19 01:03 71 24 40 03/07/19 01:00 22 Mechanical Ventilator 40 03/07/19 01:00 71 23 134/54 (80) 100 03/07/19 00:30 68 24 128/56 (80) 98 03/07/19 00:00 Mechanical Ventilator Mechanical Ventilator 03/07/19 00:00 68 03/07/19 00:00 99.0 69 24 129/52 (77) 100 03/07/19 00:00 23 Mechanical Ventilator 40 03/07/19 00:00 40 03/06/19 23:30 68 24 131/48 (75) 99 03/06/19 23:00 22 Mechanical Ventilator 40 03/06/19 23:00 68 24 132/47 (75) 100 03/06/19 22:52 98.9 03/06/19 22:46 69 24 40 03/06/19 22:30 69 24 130/46 (74) 99 03/06/19 22:16 22 Mechanical Ventilator 40 03/06/19 22:02 128/47 03/06/19 22:02 128/47 03/06/19 22:00 69 23 131/52 (78) 100 03/06/19 22:00 23 Mechanical Ventilator 40 03/06/19 21:45 70 24 128/47 (74) 100 03/06/19 21:30 22 Mechanical Ventilator 40 03/06/19 21:30 68 24 132/48 (76) 100 03/06/19 21:15 23 Mechanical Ventilator 40 03/06/19 21:15 70 24 138/52 (80) 100 03/06/19 21:00 72 23 136/50 (78) 100 03/06/19 21:00 23 Mechanical Ventilator 40 03/06/19 20:50 72 24 40 03/06/19 20:32 71 123/47 03/06/19 20:30 70 24 115/45 (68) 98 03/06/19 20:00 98.9 72 22 123/47 (72) 98 03/06/19 20:00 22 Mechanical Ventilator 40 03/06/19 20:00 Mechanical Ventilator Mechanical Ventilator 03/06/19 20:00 74 03/06/19 20:00 40 03/06/19 19:30 79 25 132/58 (82) 100 03/06/19 19:13 79 26 100 Mechanical Ventilator 40 03/06/19 19:03 75 24 100 Mechanical Ventilator 40 03/06/19 19:03 75 24 40 03/06/19 19:00 24 Mechanical Ventilator 40 03/06/19 19:00 83 19 131/53 (79) 99 03/06/19 18:30 68 22 131/51 (77) 99 03/06/19 18:01 24 Mechanical Ventilator 40 03/06/19 18:00 69 24 128/49 (75) 100 03/06/19 17:00 24 Mechanical Ventilator 40 03/06/19 17:00 81 23 150/67 (94) 99 03/06/19 16:55 80 24 40 03/06/19 16:30 83 16 147/63 (91) 100 03/06/19 16:00 40 03/06/19 16:00 24 Mechanical Ventilator 24 03/06/19 16:00 78 03/06/19 16:00 99.0 78 17 127/61 (83) 99 03/06/19 16:00 Mechanical Ventilator Mechanical Ventilator 03/06/19 15:30 78 17 120/52 (74) 98 03/06/19 15:00 81 22 119/45 (69) 98 03/06/19 15:00 24 Mechanical Ventilator 40 03/06/19 15:00 24 Mechanical Ventilator 40 03/06/19 14:45 82 16 40 03/06/19 14:30 83 19 131/53 (79) 99 03/06/19 14:00 86 18 126/57 (80) 97 03/06/19 14:00 24 Mechanical Ventilator 40 03/06/19 13:30 136/116 (123) 91 Intake and Output 03/06/19 03/07/19 19:00 07:00 Intake Total 1353.416 ml 950 ml Output Total 1450 ml 1225 ml Balance -96.584 ml -275 ml Free Water 120 ml IV Total 717.416 ml 314 ml Tube Feeding 516 ml 516 ml Other 120 ml Output Urine Total 1350 ml 1225 ml Stool Total 100 ml Laboratory Tests 03/07/19 04:20: White Blood Count 2.7L, Red Blood Count 2.88L, Hemoglobin 8.3L, Hematocrit 25.0L , Mean Corpuscular Volume 87, Mean Corpuscular Hemoglobin 28.7, Mean Corpuscular Hemoglobin Concent 33.1, Red Cell Distribution Width 16.2H, Platelet Count 94L, Mean Platelet Volume 6.3L, Neutrophils (%) (Auto) , Lymphocytes (%) (Auto) , Monocytes (%) (Auto) , Eosinophils (%) (Auto) , Basophils (%) (Auto) , Differential Total Cells Counted 100, Neutrophils % ( Manual) 42L, Lymphocytes % (Manual) 42, Monocytes % (Manual) 11H, Eosinophils % (Manual) 5H, Basophils % (Manual) 0, Band Neutrophils 0, Platelet Estimate DecreasedL, Platelet Morphology Normal, Anisocytosis 1+, Sodium Level 136, Potassium Level 3.6, Chloride Level 100, Carbon Dioxide Level 31, Anion Gap 5, Blood Urea Nitrogen 25H, Creatinine 1.8H, Estimat Glomerular Filtration Rate 38.8, Glucose Level 148H, Calcium Level 8.4L, Phosphorus Level 2.1L, Magnesium Level 1.6L, Total Bilirubin 0.5, Aspartate Amino Transf (AST/SGOT) 41H, Alanine Aminotransferase (ALT/SGPT) 50, Alkaline Phosphatase 137H, Total Protein 5.2L, Albumin 2.0L, Globulin 3.2, Albumin/Globulin Ratio 0.6L 03/07/19 07:34: Vancomycin Level Trough 8.1 Height (Feet): 6 Height (Inches): 0.00 Weight (Pounds): 250 General Appearance: no apparent distress EENT: other - vented Cardiovascular: normal rate Respiratory/Chest: decreased breath sounds Abdomen: distended Objective no change Mike Mcdonald MD Mar 07, 2019 13:20
--- NOTE | 2019-03-07 13:30 | Hematology/Onc Progress Note ---
Assessment/Plan Assessment/Plan ASSESSMENT AND RECS: # Pancytopenia with all three cell lines have, decreasing counts could also be due to underlying hiv meds, sepsis as well as HIV --> Anemia workup has been reviewed. Ferritin 182 --> Hep panel pending and HIV confirmed positive --> No evidence of hemolysis is noted, peripheral smear has been reviewed. --> Hgb goal >7. Transfuse prn. --> Epogen or iron at this time is not particularly indicated --> Medications have been reviewed --> Stool OB negative --> Blood tx: 1 unit on 02/10/19, --> off ASA, off heparin, off lovenox --> Hgb trend: 7.6-->8.2-->9.4-->8.4-->8.2 -->8.9-->10.3->7.9-->8.1->7.8-->8.7-- >8.4-->8.1-->7.9-->8.2 --> WBC 5-->4-->3.2-->3.1-->3.4 --> Plt trend: 153-->257-->224-->205-->253-->310-->201->177-->115-->104-->100--> 106-->96k --> Transfuse if Plt < 20k and fever, or if Plt < 10k without fever --> WILLIAM screen negative # Multilobar pneumonia in patient with HIV. Recs per ID. --> Broad sp atbx started. Continue on abx as per id --> Droplet precaution # Hypoxemic respiratory failure. s/p trach --> Due to pneumonia, on abx --> pulm recs reviewed --> SBT as per pulm # Chest pain. 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 --> Trend troponin x3 --> NGT prn # HIV. --> Continue HARRT --> VL is undetectable per patient report. # HTN --> Resume home medication # DVT and GI ppx The time the note is entered does not reflect the time the patient was examined. I greatly appreciate the consultation. Subjective Constitutional: Denies: no symptoms, chills, fever, malaise, weakness, other HEENT: Denies: no symptoms, eye pain, blurred vision, tearing, double vision, ear pain, ear discharge, nose pain, nose congestion, throat pain, throat swelling, mouth pain, mouth swelling, other Cardiovascular: Denies: no symptoms, chest pain, edema, irregular heart rate, lightheadedness, palpitations, syncope, other Respiratory: Denies: no symptoms, cough, shortness of breath, SOB with excertion, SOB at rest, sputum, wheezing, other Gastrointestinal/Abdominal: Denies: no symptoms, abdomen distended, abdominal pain, black stools, tarry stools, blood in stool, constipated, diarrhea, difficulty swallowing, nausea, poor appetite, poor fluid intake, rectal bleeding , vomiting, other Genitourinary: Denies: no symptoms, burning, discharge, frequency, flank pain, hematuria, incontinence, pain, urgency, other Neurologic/Psychiatric: Denies: no symptoms, anxiety, depressed, emotional problems, headache, numbness, paresthesia, pre-existing deficit, seizure, tingling, tremors, weakness, other Endocrine: Denies: no symptoms, excessive sweating, flushing, intolerance to cold, intolerance to heat, increased hunger, increased thirst, increased urine, unexplained weight gain, unexplained weight loss, other Allergies: Coded Allergies: No Known Allergies (Unverified , 02/05/13) Subjective Subjective 02/11: Hgb yesterday was 7.6, s/p 1 unit prbc. Current hgb at 8.2. Pt attempted to pull out tubes per nursing team, soft restraints applied. 02/13: Pt in ICU and intubated. Pt currently sedated. Current hgb 9.4. 02/14: Pt remains in icu, sedated. Hgb stable. 02/15: Remains in icu, lethargic. No acute events. Hgb stable. 02/16: Remains in icu. CXR today shows worsening CHF/pulmonary edema. Pt wake and sedation decrease for weaning. 02/18: Remains in icu. Pt on vent. CXR today shows pulmonary edema, persistent small left pleural effusion. 02/19: Remains in the icu, now extubated, seen by pulm, labs reviewed 02/20: Remains in ICU, Pt intubated, CXR today shows Congestive heart failure with interval worsening 02/21: reintubated, tolerating vent well, seen by pulm/cc 02/23: pt remains on fently gtt, prn ativan, currenlty intubated on vent, no further bleeding, d/w RN> 02/24:failed weaning, fentanyl drip decreased. 02/25:pt seen in am,sedated. 02/27: remains intubated, may need trach, nobleeding today 02/28: tolerated cpap, now back on vent, no bleeding off asa/lovenox 03/01: fentanyl gtt is now off, remains in icu, dw rn 03/02: to get trach today, at approx 12, no events, labs somewhat lower 03/03: still confused on exam, d/w rn, no events, on fentanyl gtt 03/05: to get peg tomorrow, no f/c 03/06: received peg yesterday, tolerating tfs well, no f/c, labs reviewed 03/07: remains in icu, trach collar, dw pulm, no f/c Objective Objective Current Medications Medications (Trade) Dose Ordered Sig/Marquis Route PRN Reason Start Time Stop Time Status Last Admin Dose Admin Acetaminophen (Tylenol) 650 mg Q4H PRN ORAL Mild Pain (Pain Scale 1-3) 02/07/19 11:15 03/08/19 17:29 03/07/19 07:50 Acetaminophen/ Butalbital/ Caffeine (Fioricet) 1 tab Q8H PRN ORAL For Headache 02/08/19 17:15 03/10/19 17:14 Albuterol/ Ipratropium (Albuterol/ Ipratropium) 3 ml Q6HRT HHN 03/03/19 19:00 03/08/19 18:59 03/07/19 13:06 Amlodipine Besylate (Norvasc) 10 mg DAILY NG 02/15/19 09:00 03/14/19 15:59 03/07/19 09:29 Artificial Tears (Lacri-Lube) 1 applic AC+HS BOTH EYES 02/18/19 06:30 03/20/19 06:29 03/07/19 11:21 Bisacodyl (Dulcolax) 5 mg DAILYPRN PRN ORAL Constipation 02/08/19 17:15 03/10/19 17:14 02/25/19 12:45 Chlorhexidine Gluconate (Jessy-Hex 2%) 1 applic DAILY@2000 TOPIC 02/25/19 20:00 03/27/19 19:59 03/06/19 20:31 Clonidine HCl (Catapres tab) 0.2 mg EVERY 8 HOURS NG 03/02/19 22:00 03/19/19 13:59 03/07/19 05:42 Dextrose (Dextrose 50%) 25 ml Q30M PRN IV Hypoglycemia 03/01/19 07:15 03/31/19 07:14 Dextrose (Dextrose 50%) 50 ml Q30M PRN IV Hypoglycemia 03/01/19 07:15 03/31/19 07:14 03/05/19 05:32 Docusate Sodium (Colace) 100 mg TID GT 02/12/19 18:00 03/12/19 08:59 03/07/19 09:26 Fentanyl Citrate 2500 mcg/Sodium Chloride 250 ml @ 0 mls/hr Q24H IV 03/03/19 00:00 03/10/19 00:00 03/07/19 11:22 Fluconazole/ Sodium Chloride 100 ml @ 100 mls/hr Q24H IV 03/03/19 18:00 03/10/19 17:59 03/06/19 18:01 Furosemide (Lasix) 20 mg DAILY IV 03/06/19 09:00 03/31/19 08:59 03/07/19 09:28 Heparin Sodium (Porcine) (Heparin 5000 units/ml) 5,000 units EVERY 12 HOURS SUBQ 03/06/19 21:00 04/05/19 20:59 03/07/19 09:38 Hydralazine HCl (Apresoline) 10 mg Q4H PRN IV bp over 165 syst 02/17/19 10:15 03/19/19 10:14 02/19/19 14:45 Hydralazine HCl (Apresoline) 50 mg Q8HR NG 02/22/19 14:00 03/21/19 21:59 03/07/19 05:42 Insulin Aspart (NovoLOG) EVERY 6 HOURS SUBQ 02/26/19 12:00 03/28/19 11:59 03/07/19 12:37 Insulin Detemir (Levemir) 10 units Q12HR SUBQ 03/05/19 09:00 04/01/19 20:59 03/07/19 09:37 Lorazepam (Ativan 2mg/ml 1ml) 2 mg Q2H PRN IV For Anxiety 03/06/19 19:45 03/13/19 19:44 03/07/19 07:51 Magnesium Sulfate 100 ml @ 100 mls/hr Q1H IVPB 03/07/19 13:30 03/07/19 17:29 Meropenem 1 gm/ Sodium Chloride 55 ml @ 110 mls/hr Q12HR IVPB 03/06/19 21:00 03/11/19 20:59 03/07/19 09:24 Metoclopramide HCl (Reglan) 5 mg Q8H IVP 02/26/19 09:00 03/28/19 08:59 03/07/19 09:27 Metolazone (Zaroxolyn) 10 mg DAILY NG 02/19/19 10:00 03/21/19 09:59 03/07/19 09:30 Metoprolol Tartrate (Lopressor) 100 mg Q12HR ORAL 02/22/19 21:00 03/08/19 20:59 03/07/19 09:29 Midazolam HCl (Versed 2mg/2ml vial) 1 mg Q2H PRN IVP Agitation 02/13/19 08:45 03/15/19 08:44 03/07/19 12:17 Neomycin/ Polymyxin/ Dexamethasone (Maxitrol Opth Oint) 1 applic BEDTIME BOTH EYES 02/18/19 21:00 03/20/19 20:59 03/06/19 20:31 Nitroglycerin (Ntg) 0.4 mg Q5M PRN SL Prn Chest Pain 02/07/19 11:00 03/08/19 17:29 02/08/19 07:42 Ondansetron HCl (Zofran) 4 mg Q6H PRN IVP Nausea & Vomiting 02/07/19 11:15 03/08/19 11:14 02/09/19 00:58 Pantoprazole (Protonix) 40 mg DAILY IVP 02/26/19 09:00 03/24/19 20:59 03/07/19 09:26 Patient Own Medication (Patient's Own Med) 1 ea BID ORAL 02/07/19 18:00 03/07/19 23:59 03/07/19 09:25 Patient Own Medication (Patient's Own Med) 1 ea BID ORAL 03/08/19 09:00 04/07/19 08:59 Patient Own Medication (Patient's Own Med) 1 ea DAILY ORAL 03/07/19 09:00 04/04/19 11:59 03/07/19 09:25 Patient Own Medication (Patient's Own Med) 2 ea DAILY ORAL 02/08/19 09:00 03/10/19 08:59 03/07/19 09:25 Polyethylene Glycol (Miralax) 17 gm BEDTIME ORAL 02/08/19 21:00 03/10/19 20:59 03/03/19 21:01 Sennosides (Senokot) 8.6 mg DAILY ORAL 02/13/19 12:00 03/15/19 11:59 03/07/19 09:30 Sodium Phosphate 15 mm/Sodium Chloride 280 ml @ 70.273 mls/ hr ONCE IVPB 03/07/19 14:00 03/07/19 18:00 Trimethoprim/ Sulfamethoxazole (Bactrim-DS) 1 tab DAILY ORAL 03/04/19 09:00 03/11/19 08:59 03/07/19 09:29 Vancomycin HCl (Vanco rx to dose) 1 ea DAILY PRN MISC Per rx protocol 03/03/19 11:00 04/02/19 10:59 Vancomycin HCl/ Dextrose 275 ml @ 183.333 mls/hr Q24H IVPB 03/07/19 09:00 03/12/19 08:59 03/07/19 09:23 Last 24 Hour Vital Signs Date Time Temp Pulse Resp B/P (MAP) Pulse Ox O2 Delivery O2 Flow Rate FiO2 03/07/19 13:14 74 20 100 Mechanical Ventilator 40 03/07/19 13:06 75 20 100 Trach Collar 12.0 40 03/07/19 13:06 76 20 40 03/07/19 13:00 74 20 134/54 (80) 100 03/07/19 12:30 74 16 137/54 (81) 100 03/07/19 12:00 72 03/07/19 12:00 Mechanical Ventilator Mechanical Ventilator 03/07/19 12:00 98.9 74 17 141/100 (114) 100 03/07/19 11:30 72 17 134/56 (82) 100 03/07/19 11:22 Trach Collar 40 03/07/19 11:01 75 20 40 03/07/19 11:00 73 20 130/52 (78) 99 03/07/19 11:00 T-piece 03/07/19 10:30 T-piece 03/07/19 10:00 T-piece 03/07/19 10:00 80 20 129/56 (80) 100 03/07/19 09:29 82 131/53 03/07/19 09:29 81 131/53 03/07/19 09:23 T-piece 03/07/19 09:02 40 03/07/19 09:00 87 18 113/46 (68) 100 03/07/19 09:00 T-piece 03/07/19 09:00 82 20 40 03/07/19 08:30 85 20 103/43 (63) 100 03/07/19 08:30 Mechanical Ventilator 03/07/19 08:00 100.0 91 17 144/57 (86) 100 03/07/19 08:00 94 03/07/19 08:00 Mechanical Ventilator 03/07/19 08:00 Mechanical Ventilator Mechanical Ventilator 03/07/19 08:00 40 03/07/19 07:30 92 16 136/74 (94) 99 03/07/19 07:30 Mechanical Ventilator 03/07/19 07:20 40 03/07/19 07:17 80 20 100 Mechanical Ventilator 40 03/07/19 07:05 80 20 100 Mechanical Ventilator 40 03/07/19 07:00 74 25 121/55 (77) 100 03/07/19 07:00 80 24 40 40 03/07/19 07:00 Mechanical Ventilator 03/07/19 06:30 74 20 128/54 (78) 100 03/07/19 06:00 73 24 153/56 (88) 100 03/07/19 06:00 Mechanical Ventilator 40 03/07/19 05:45 77 21 136/58 (84) 100 03/07/19 05:42 136/56 03/07/19 05:42 136/56 03/07/19 05:30 71 22 136/56 (82) 100 03/07/19 05:15 71 24 132/53 (79) 100 03/07/19 05:02 71 25 40 03/07/19 05:00 21 Mechanical Ventilator 40 03/07/19 05:00 74 19 127/85 (99) 100 03/07/19 04:45 71 22 137/55 (82) 100 03/07/19 04:30 72 20 132/58 (82) 100 03/07/19 04:00 40 03/07/19 04:00 Mechanical Ventilator Mechanical Ventilator 03/07/19 04:00 22 Mechanical Ventilator 40 03/07/19 04:00 98.9 75 22 117/53 (74) 99 03/07/19 04:00 77 03/07/19 03:30 75 22 152/59 (90) 100 03/07/19 03:05 70 24 40 03/07/19 03:00 69 24 136/54 (81) 99 03/07/19 03:00 23 Mechanical Ventilator 40 03/07/19 02:30 70 24 129/48 (75) 100 03/07/19 02:00 71 24 129/47 (74) 100 03/07/19 02:00 23 Mechanical Ventilator 40 03/07/19 01:30 73 23 128/53 (78) 100 03/07/19 01:13 71 24 100 Mechanical Ventilator 40 03/07/19 01:03 71 24 100 Mechanical Ventilator 40 03/07/19 01:03 71 24 40 03/07/19 01:00 22 Mechanical Ventilator 40 03/07/19 01:00 71 23 134/54 (80) 100 03/07/19 00:30 68 24 128/56 (80) 98 03/07/19 00:00 Mechanical Ventilator Mechanical Ventilator 03/07/19 00:00 68 03/07/19 00:00 99.0 69 24 129/52 (77) 100 03/07/19 00:00 23 Mechanical Ventilator 40 03/07/19 00:00 40 03/06/19 23:30 68 24 131/48 (75) 99 03/06/19 23:00 22 Mechanical Ventilator 40 03/06/19 23:00 68 24 132/47 (75) 100 03/06/19 22:52 98.9 03/06/19 22:46 69 24 40 03/06/19 22:30 69 24 130/46 (74) 99 03/06/19 22:16 22 Mechanical Ventilator 40 03/06/19 22:02 128/47 03/06/19 22:02 128/47 03/06/19 22:00 69 23 131/52 (78) 100 03/06/19 22:00 23 Mechanical Ventilator 40 03/06/19 21:45 70 24 128/47 (74) 100 03/06/19 21:30 22 Mechanical Ventilator 40 03/06/19 21:30 68 24 132/48 (76) 100 03/06/19 21:15 23 Mechanical Ventilator 40 03/06/19 21:15 70 24 138/52 (80) 100 03/06/19 21:00 72 23 136/50 (78) 100 03/06/19 21:00 23 Mechanical Ventilator 40 03/06/19 20:50 72 24 40 03/06/19 20:32 71 123/47 03/06/19 20:30 70 24 115/45 (68) 98 03/06/19 20:00 98.9 72 22 123/47 (72) 98 03/06/19 20:00 22 Mechanical Ventilator 40 03/06/19 20:00 Mechanical Ventilator Mechanical Ventilator 03/06/19 20:00 74 03/06/19 20:00 40 03/06/19 19:30 79 25 132/58 (82) 100 03/06/19 19:13 79 26 100 Mechanical Ventilator 40 03/06/19 19:03 75 24 100 Mechanical Ventilator 40 03/06/19 19:03 75 24 40 03/06/19 19:00 24 Mechanical Ventilator 40 03/06/19 19:00 83 19 131/53 (79) 99 03/06/19 18:30 68 22 131/51 (77) 99 03/06/19 18:01 24 Mechanical Ventilator 40 03/06/19 18:00 69 24 128/49 (75) 100 03/06/19 17:00 24 Mechanical Ventilator 40 03/06/19 17:00 81 23 150/67 (94) 99 03/06/19 16:55 80 24 40 03/06/19 16:30 83 16 147/63 (91) 100 03/06/19 16:00 40 03/06/19 16:00 24 Mechanical Ventilator 24 03/06/19 16:00 78 03/06/19 16:00 99.0 78 17 127/61 (83) 99 03/06/19 16:00 Mechanical Ventilator Mechanical Ventilator 03/06/19 15:30 78 17 120/52 (74) 98 03/06/19 15:00 81 22 119/45 (69) 98 03/06/19 15:00 24 Mechanical Ventilator 40 03/06/19 15:00 24 Mechanical Ventilator 40 03/06/19 14:45 82 16 40 03/06/19 14:30 83 19 131/53 (79) 99 03/06/19 14:00 86 18 126/57 (80) 97 03/06/19 14:00 24 Mechanical Ventilator 40 03/06/19 13:30 136/116 (123) 91 03/06/19 13:14 136/53 03/06/19 13:13 136/53 03/06/19 13:00 24 Mechanical Ventilator 40 03/06/19 13:00 88 22 148/65 (92) 96 03/06/19 12:46 101 27 99 Mechanical Ventilator 40 03/06/19 12:44 96 29 40 03/06/19 12:40 100 33 99 Mechanical Ventilator 40 03/06/19 12:30 85 23 158/110 (126) 99 03/06/19 12:00 Mechanical Ventilator Mechanical Ventilator 03/06/19 12:00 98.8 88 23 159/69 (99) 97 03/06/19 12:00 24 Mechanical Ventilator 40 03/06/19 12:00 93 03/06/19 12:00 40 03/06/19 11:30 84 21 152/64 (93) 100 03/06/19 11:00 87 19 143/62 (89) 99 03/06/19 11:00 24 Mechanical Ventilator 40 03/06/19 10:37 86 30 40 03/06/19 10:30 89 25 134/53 (80) 99 03/06/19 10:00 24 Mechanical Ventilator 40 03/06/19 10:00 93 17 148/55 (86) 98 03/06/19 09:30 97 18 149/57 (87) 98 03/06/19 09:14 100 03/06/19 09:00 99 21 153/69 (97) 99 03/06/19 09:00 24 Mechanical Ventilator 40 03/06/19 09:00 89 136/53 03/06/19 09:00 89 136/53 03/06/19 08:40 105 25 40 03/06/19 08:30 86 22 133/59 (83) 100 03/06/19 08:00 98.9 86 19 144/52 (82) 100 03/06/19 08:00 24 Mechanical Ventilator 40 03/06/19 08:00 85 03/06/19 08:00 40 03/06/19 08:00 Mechanical Ventilator Mechanical Ventilator 03/06/19 07:00 89 21 136/53 (80) 100 03/06/19 07:00 24 Mechanical Ventilator 03/06/19 06:40 84 24 100 Mechanical Ventilator 40 03/06/19 06:38 86 25 40 03/06/19 06:35 85 24 100 Mechanical Ventilator 40 03/06/19 06:30 84 24 130/54 (79) 100 03/06/19 06:00 24 Mechanical Ventilator 03/06/19 06:00 87 22 124/48 (73) 100 03/06/19 05:41 144/48 03/06/19 05:40 144/48 03/06/19 05:30 86 24 124/48 (73) 100 03/06/19 05:00 86 24 144/48 (80) 100 03/06/19 05:00 24 Mechanical Ventilator 03/06/19 04:52 87 24 40 03/06/19 04:30 97 18 140/54 (82) 99 03/06/19 04:00 40 03/06/19 04:00 99.2 95 139/51 (80) 98 03/06/19 04:00 Mechanical Ventilator Mechanical Ventilator 03/06/19 04:00 24 Mechanical Ventilator 03/06/19 04:00 78 03/06/19 03:30 90 141/53 (82) 99 03/06/19 03:22 92 25 40 03/06/19 03:00 24 Mechanical Ventilator 03/06/19 03:00 92 21 136/55 (82) 98 03/06/19 02:30 91 24 141/59 (86) 99 03/06/19 02:00 24 Mechanical Ventilator 03/06/19 02:00 96 19 149/58 (88) 99 03/06/19 01:30 94 24 155/64 (94) 99 03/06/19 01:21 90 24 98 Mechanical Ventilator 40 03/06/19 01:07 78 24 100 Mechanical Ventilator 40 03/06/19 01:06 78 24 40 03/06/19 01:00 24 Mechanical Ventilator 03/06/19 01:00 79 24 141/62 (88) 100 03/06/19 00:30 78 24 149/55 (86) 99 03/06/19 00:00 40 03/06/19 00:00 78 03/06/19 00:00 Mechanical Ventilator Mechanical Ventilator 03/06/19 00:00 24 Mechanical Ventilator 03/06/19 00:00 99.3 78 25 149/57 (87) 100 03/05/19 23:30 78 24 148/56 (86) 98 03/05/19 23:12 80 25 40 03/05/19 23:00 78 24 142/53 (82) 98 03/05/19 23:00 24 Mechanical Ventilator 03/05/19 22:49 139/58 03/05/19 22:49 139/58 03/05/19 22:30 80 22 139/58 (85) 99 03/05/19 22:00 76 24 131/50 (77) 99 03/05/19 22:00 24 Mechanical Ventilator 03/05/19 21:30 77 21 141/52 (81) 98 03/05/19 21:28 78 24 40 03/05/19 21:11 20 Mechanical Ventilator 03/05/19 21:00 78 15 131/68 (89) 99 03/05/19 20:58 75 135/51 03/05/19 20:30 74 24 135/51 (79) 98 03/05/19 20:00 Mechanical Ventilator Mechanical Ventilator 03/05/19 20:00 76 03/05/19 20:00 40 03/05/19 20:00 99.2 76 24 121/59 (79) 97 03/05/19 19:30 78 12 131/58 (82) 99 03/05/19 19:12 76 25 98 Mechanical Ventilator 40 03/05/19 19:01 76 24 40 03/05/19 19:00 76 24 99 Mechanical Ventilator 40 03/05/19 19:00 24 Mechanical Ventilator 40 03/05/19 19:00 76 19 149/53 (85) 99 03/05/19 18:00 77 21 127/72 (90) 99 03/05/19 18:00 24 Mechanical Ventilator 40 03/05/19 17:30 79 23 147/61 (89) 100 03/05/19 17:00 99.5 80 24 131/53 (79) 100 03/05/19 17:00 24 Mechanical Ventilator 40 03/05/19 17:00 72 24 40 03/05/19 16:30 74 20 142/58 (86) 99 03/05/19 16:00 70 03/05/19 16:00 Mechanical Ventilator Mechanical Ventilator 03/05/19 16:00 24 Mechanical Ventilator 40 03/05/19 16:00 78 22 147/59 (88) 99 03/05/19 16:00 40 03/05/19 15:30 71 22 136/48 (77) 98 03/05/19 15:01 74 24 40 03/05/19 15:00 24 Mechanical Ventilator 40 03/05/19 15:00 73 19 138/48 (78) 100 03/05/19 14:30 71 21 127/48 (74) 99 03/05/19 14:00 24 Mechanical Ventilator 40 03/05/19 14:00 73 24 131/48 (75) 98 03/05/19 13:30 76 24 137/54 (81) 98 Intake and Output 03/06/19 03/07/19 19:00 07:00 Intake Total 1353.416 ml 950 ml Output Total 1450 ml 1225 ml Balance -96.584 ml -275 ml Free Water 120 ml IV Total 717.416 ml 314 ml Tube Feeding 516 ml 516 ml Other 120 ml Output Urine Total 1350 ml 1225 ml Stool Total 100 ml Labs Test 03/05/19 04:45 03/06/19 05:00 03/06/19 08:00 03/07/19 04:20 White Blood Count 3.4 K/UL (4.8-10.8) 2.4 K/UL (4.8-10.8) 2.8 K/UL (4.8-10.8) 2.7 K/UL (4.8-10.8) Red Blood Count 2.84 M/UL (4.70-6.10) 2.56 M/UL (4.70-6.10) 2.70 M/UL (4.70-6.10) 2.88 M/UL (4.70-6.10) Hemoglobin 8.2 G/DL (14.2-18.0) 7.4 G/DL (14.2-18.0) 7.8 G/DL (14.2-18.0) 8.3 G/DL (14.2-18.0) Hematocrit 25.0 % (42.0-52.0) 22.3 % (42.0-52.0) 23.8 % (42.0-52.0) 25.0 % (42.0-52.0) Mean Corpuscular Volume 88 FL (80-99) 87 FL (80-99) 88 FL (80-99) 87 FL (80- 99) Mean Corpuscular Hemoglobin 28.9 PG (27.0-31.0) 29.0 PG (27.0-31.0) 28.9 PG (27.0-31.0) 28.7 PG (27.0-31.0) Mean Corpuscular Hemoglobin Concent 32.9 G/DL (32.0-36.0) 33.2 G/DL (32.0-36.0) 32.8 G/DL (32.0-36.0) 33.1 G/DL (32.0-36.0) Red Cell Distribution Width 16.8 % (11.6-14.8) 16.8 % (11.6-14.8) 16.4 % (11.6-14.8) 16.2 % (11.6-14.8) Platelet Count 96 K/UL (150-450) 86 K/UL (150-450) 85 K/UL (150-450) 94 K/UL (150-450) Mean Platelet Volume 6.4 FL (6.5-10.1) 6.5 FL (6.5-10.1) 6.3 FL (6.5-10.1) 6.3 FL (6.5-10.1) Neutrophils (%) (Auto) % (45.0-75.0) % (45.0-75.0) % (45.0-75.0) % (45.0- 75.0) Lymphocytes (%) (Auto) % (20.0-45.0) % (20.0-45.0) % (20.0-45.0) % (20.0- 45.0) Monocytes (%) (Auto) % (1.0-10.0) % (1.0-10.0) % (1.0-10.0) % (1.0-10.0) Eosinophils (%) (Auto) % (0.0-3.0) % (0.0-3.0) % (0.0-3.0) % (0.0-3.0) Basophils (%) (Auto) % (0.0-2.0) % (0.0-2.0) % (0.0-2.0) % (0.0-2.0) Differential Total Cells Counted 100 100 100 100 Neutrophils % (Manual) 60 % (45-75) 49 % (45-75) 49 % (45-75) 42 % (45-75) Lymphocytes % (Manual) 22 % (20-45) 43 % (20-45) 42 % (20-45) 42 % (20-45) Monocytes % (Manual) 15 % (1-10) 6 % (1-10) 7 % (1-10) 11 % (1-10) Eosinophils % (Manual) 2 % (0-3) 2 % (0-3) 2 % (0-3) 5 % (0-3) Basophils % (Manual) 1 % (0-2) 0 % (0-2) 0 % (0-2) 0 % (0-2) Band Neutrophils 0 % (0-8) 0 % (0-8) 0 % (0-8) 0 % (0-8) Platelet Estimate Decreased Decreased Decreased Decreased Platelet Morphology Normal Normal Normal Normal Hypochromasia 2+ Anisocytosis 1+ 1+ 1+ 1+ Sodium Level 140 MMOL/L (136-145) 136 MMOL/L (136-145) 136 MMOL/L (136-145) Potassium Level 3.4 MMOL/L (3.5-5.1) 3.4 MMOL/L (3.5-5.1) 3.6 MMOL/L (3.5-5.1) Chloride Level 103 MMOL/L (98-107) 99 MMOL/L (98-107) 100 MMOL/L (98-107) Carbon Dioxide Level 29 MMOL/L (21-32) 31 MMOL/L (21-32) 31 MMOL/L (21-32) Anion Gap 8 mmol/L (5-15) 6 mmol/L (5-15) 5 mmol/L (5-15) Blood Urea Nitrogen 32 mg/dL (7-18) 28 mg/dL (7-18) 25 mg/dL (7-18) Creatinine 1.6 MG/DL (0.55-1.30) 1.7 MG/DL (0.55-1.30) 1.8 MG/DL (0.55-1.30) Estimat Glomerular Filtration Rate 44.5 mL/min (>60) 41.5 mL/min (>60) 38.8 mL/min (>60) Glucose Level 69 MG/DL (74-106) 183 MG/DL (74-106) 148 MG/DL (74-106) Uric Acid 4.6 MG/DL (2.6-7.2) Calcium Level 9.0 MG/DL (8.5-10.1) 8.2 MG/DL (8.5-10.1) 8.4 MG/DL (8.5-10.1) Phosphorus Level 2.2 MG/DL (2.5-4.9) 2.5 MG/DL (2.5-4.9) 2.1 MG/DL (2.5-4.9) Magnesium Level 1.3 MG/DL (1.8-2.4) 1.7 MG/DL (1.8-2.4) 1.6 MG/DL (1.8-2.4) Total Bilirubin 0.6 MG/DL (0.2-1.0) 0.6 MG/DL (0.2-1.0) 0.5 MG/DL (0.2-1.0) Aspartate Amino Transf (AST/SGOT) 58 U/L (15-37) 42 U/L (15-37) 41 U/L (15-37) Alanine Aminotransferase (ALT/SGPT) 76 U/L (12-78) 55 U/L (12-78) 50 U/L (12-78) Alkaline Phosphatase 108 U/L (46-116) 125 U/L (46-116) 137 U/L (46-116) C-Reactive Protein, Quantitative 9.1 mg/dL (0.00-0.90) Pro-B-Type Natriuretic Peptide 60105 pg/mL (0-125) Total Protein 5.2 G/DL (6.4-8.2) 4.8 G/DL (6.4-8.2) 5.2 G/DL (6.4-8.2) Albumin 2.1 G/DL (3.4-5.0) 1.9 G/DL (3.4-5.0) 2.0 G/DL (3.4-5.0) Globulin 3.1 g/dL 2.9 g/dL 3.2 g/dL Albumin/Globulin Ratio 0.7 (1.0-2.7) 0.7 (1.0-2.7) 0.6 (1.0-2.7) Random Vancomycin Level 11.4 ug/mL Test 03/07/19 07:34 Vancomycin Level Trough 8.1 ug/mL (5.0-12.0) Height (Feet): 6 Height (Inches): 0.00 Weight (Pounds): 250 Objective PHYSICAL EXAMINATION: GENERAL: NAD VITAL SIGNS: Have been reviewed. HEAD AND NECK: Shows no JVD. NG+, trach ++++ vent+ LUNGS: Coarse rhonchi. CARDIOVASCULAR: Shows regular S1 and S2 with no gallop or murmur. ABDOMEN: Soft. ++ peg EXTREMITIES: No pitting edema. Chan Hernandez MD Mar 07, 2019 13:30
--- NOTE | 2019-03-07 13:35 | Cardiac Electrophysiology PN ---
Assessment/Plan Assessment/Plan 1. Non-ST elevation myocardial infarction with peak troponin of more than 10, down to 3.[address]-T wave abnormalities. Continue Lipitor, Imdur and metoprolol Not a candidate for Cardiac catheterization 2. Hypertension. Metoprolol 100 bid, Isordil 20 q6 , Lasix 20 iv daily, Norvasc 10 daily and hydralazine 50 q 8 hr and Clonidine 0.2 q 8hrs 3. Respiratory failure due to Multilobar Pneumonia. Extubated 02/19/19. Reintubated 02/20/19 S/P Tracheostomy 03/02/19 Off the vent on CPAP 4. Hyperlipidemia. On Lipitor. 5. Human immunodeficiency virus. On anti-retroviral therapy with undetectable viral load. 6. ARF Cr 3 7. Bleeding from ETT and NG tube. S/P PRBC. Off Aspirin and Lovenox No further bleeding 8. Dysphagia. S/P PEG 03/05/19 CANDELARIO RN Subjective Subjective In ICU off the vent on T piece via Tracheostomy. S/p PEG . Objective Last 24 Hour Vital Signs Date Time Temp Pulse Resp B/P (MAP) Pulse Ox O2 Delivery O2 Flow Rate FiO2 03/07/19 13:14 74 20 100 Mechanical Ventilator 40 03/07/19 13:06 75 20 100 Trach Collar 12.0 40 03/07/19 13:06 76 20 40 03/07/19 13:00 74 20 134/54 (80) 100 03/07/19 12:30 74 16 137/54 (81) 100 03/07/19 12:00 72 03/07/19 12:00 Mechanical Ventilator Mechanical Ventilator 03/07/19 12:00 98.9 74 17 141/100 (114) 100 03/07/19 11:30 72 17 134/56 (82) 100 03/07/19 11:22 Trach Collar 40 03/07/19 11:01 75 20 40 03/07/19 11:00 73 20 130/52 (78) 99 03/07/19 11:00 T-piece 03/07/19 10:30 T-piece 03/07/19 10:00 T-piece 03/07/19 10:00 80 20 129/56 (80) 100 03/07/19 09:29 82 131/53 03/07/19 09:29 81 131/53 03/07/19 09:23 T-piece 03/07/19 09:02 40 03/07/19 09:00 87 18 113/46 (68) 100 03/07/19 09:00 T-piece 03/07/19 09:00 82 20 40 03/07/19 08:30 85 20 103/43 (63) 100 03/07/19 08:30 Mechanical Ventilator 03/07/19 08:00 100.0 91 17 144/57 (86) 100 03/07/19 08:00 94 03/07/19 08:00 Mechanical Ventilator 03/07/19 08:00 Mechanical Ventilator Mechanical Ventilator 03/07/19 08:00 40 03/07/19 07:30 92 16 136/74 (94) 99 03/07/19 07:30 Mechanical Ventilator 03/07/19 07:20 40 03/07/19 07:17 80 20 100 Mechanical Ventilator 40 03/07/19 07:05 80 20 100 Mechanical Ventilator 40 03/07/19 07:00 74 25 121/55 (77) 100 03/07/19 07:00 80 24 40 40 03/07/19 07:00 Mechanical Ventilator 03/07/19 06:30 74 20 128/54 (78) 100 03/07/19 06:00 73 24 153/56 (88) 100 03/07/19 06:00 Mechanical Ventilator 40 03/07/19 05:45 77 21 136/58 (84) 100 03/07/19 05:42 136/56 03/07/19 05:42 136/56 03/07/19 05:30 71 22 136/56 (82) 100 03/07/19 05:15 71 24 132/53 (79) 100 03/07/19 05:02 71 25 40 03/07/19 05:00 21 Mechanical Ventilator 40 03/07/19 05:00 74 19 127/85 (99) 100 03/07/19 04:45 71 22 137/55 (82) 100 03/07/19 04:30 72 20 132/58 (82) 100 03/07/19 04:00 40 03/07/19 04:00 Mechanical Ventilator Mechanical Ventilator 03/07/19 04:00 22 Mechanical Ventilator 40 03/07/19 04:00 98.9 75 22 117/53 (74) 99 03/07/19 04:00 77 03/07/19 03:30 75 22 152/59 (90) 100 03/07/19 03:05 70 24 40 03/07/19 03:00 69 24 136/54 (81) 99 03/07/19 03:00 23 Mechanical Ventilator 40 03/07/19 02:30 70 24 129/48 (75) 100 03/07/19 02:00 71 24 129/47 (74) 100 03/07/19 02:00 23 Mechanical Ventilator 40 03/07/19 01:30 73 23 128/53 (78) 100 03/07/19 01:13 71 24 100 Mechanical Ventilator 40 03/07/19 01:03 71 24 100 Mechanical Ventilator 40 03/07/19 01:03 71 24 40 03/07/19 01:00 22 Mechanical Ventilator 40 03/07/19 01:00 71 23 134/54 (80) 100 03/07/19 00:30 68 24 128/56 (80) 98 03/07/19 00:00 Mechanical Ventilator Mechanical Ventilator 03/07/19 00:00 68 03/07/19 00:00 99.0 69 24 129/52 (77) 100 03/07/19 00:00 23 Mechanical Ventilator 40 03/07/19 00:00 40 03/06/19 23:30 68 24 131/48 (75) 99 03/06/19 23:00 22 Mechanical Ventilator 40 03/06/19 23:00 68 24 132/47 (75) 100 03/06/19 22:52 98.9 03/06/19 22:46 69 24 40 03/06/19 22:30 69 24 130/46 (74) 99 03/06/19 22:16 22 Mechanical Ventilator 40 03/06/19 22:02 128/47 03/06/19 22:02 128/47 03/06/19 22:00 69 23 131/52 (78) 100 03/06/19 22:00 23 Mechanical Ventilator 40 03/06/19 21:45 70 24 128/47 (74) 100 03/06/19 21:30 22 Mechanical Ventilator 40 03/06/19 21:30 68 24 132/48 (76) 100 03/06/19 21:15 23 Mechanical Ventilator 40 03/06/19 21:15 70 24 138/52 (80) 100 03/06/19 21:00 72 23 136/50 (78) 100 03/06/19 21:00 23 Mechanical Ventilator 40 03/06/19 20:50 72 24 40 03/06/19 20:32 71 123/47 03/06/19 20:30 70 24 115/45 (68) 98 03/06/19 20:00 98.9 72 22 123/47 (72) 98 03/06/19 20:00 22 Mechanical Ventilator 40 03/06/19 20:00 Mechanical Ventilator Mechanical Ventilator 03/06/19 20:00 74 03/06/19 20:00 40 03/06/19 19:30 79 25 132/58 (82) 100 03/06/19 19:13 79 26 100 Mechanical Ventilator 40 03/06/19 19:03 75 24 100 Mechanical Ventilator 40 03/06/19 19:03 75 24 40 03/06/19 19:00 24 Mechanical Ventilator 40 03/06/19 19:00 83 19 131/53 (79) 99 03/06/19 18:30 68 22 131/51 (77) 99 03/06/19 18:01 24 Mechanical Ventilator 40 03/06/19 18:00 69 24 128/49 (75) 100 03/06/19 17:00 24 Mechanical Ventilator 40 03/06/19 17:00 81 23 150/67 (94) 99 03/06/19 16:55 80 24 40 03/06/19 16:30 83 16 147/63 (91) 100 03/06/19 16:00 40 03/06/19 16:00 24 Mechanical Ventilator 24 03/06/19 16:00 78 03/06/19 16:00 99.0 78 17 127/61 (83) 99 03/06/19 16:00 Mechanical Ventilator Mechanical Ventilator 03/06/19 15:30 78 17 120/52 (74) 98 03/06/19 15:00 81 22 119/45 (69) 98 03/06/19 15:00 24 Mechanical Ventilator 40 03/06/19 15:00 24 Mechanical Ventilator 40 03/06/19 14:45 82 16 40 03/06/19 14:30 83 19 131/53 (79) 99 03/06/19 14:00 86 18 126/57 (80) 97 03/06/19 14:00 24 Mechanical Ventilator 40 Intake and Output 03/06/19 03/07/19 19:00 07:00 Intake Total 1353.416 ml 950 ml Output Total 1450 ml 1225 ml Balance -96.584 ml -275 ml Free Water 120 ml IV Total 717.416 ml 314 ml Tube Feeding 516 ml 516 ml Other 120 ml Output Urine Total 1350 ml 1225 ml Stool Total 100 ml Laboratory Tests Test 03/07/19 04:20 03/07/19 07:34 White Blood Count 2.7 K/UL (4.8-10.8) L Red Blood Count 2.88 M/UL (4.70-6.10) L Hemoglobin 8.3 G/DL (14.2-18.0) L Hematocrit 25.0 % (42.0-52.0) L Mean Corpuscular Volume 87 FL (80-99) Mean Corpuscular Hemoglobin 28.7 PG (27.0-31.0) Mean Corpuscular Hemoglobin Concent 33.1 G/DL (32.0-36.0) Red Cell Distribution Width 16.2 % (11.6-14.8) H Platelet Count 94 K/UL (150-450) L Mean Platelet Volume 6.3 FL (6.5-10.1) L Neutrophils (%) (Auto) % (45.0-75.0) Lymphocytes (%) (Auto) % (20.0-45.0) Monocytes (%) (Auto) % (1.0-10.0) Eosinophils (%) (Auto) % (0.0-3.0) Basophils (%) (Auto) % (0.0-2.0) Differential Total Cells Counted 100 Neutrophils % (Manual) 42 % (45-75) L Lymphocytes % (Manual) 42 % (20-45) Monocytes % (Manual) 11 % (1-10) H Eosinophils % (Manual) 5 % (0-3) H Basophils % (Manual) 0 % (0-2) Band Neutrophils 0 % (0-8) Platelet Estimate Decreased L Platelet Morphology Normal Anisocytosis 1+ Sodium Level 136 MMOL/L (136-145) Potassium Level 3.6 MMOL/L (3.5-5.1) Chloride Level 100 MMOL/L (98-107) Carbon Dioxide Level 31 MMOL/L (21-32) Anion Gap 5 mmol/L (5-15) Blood Urea Nitrogen 25 mg/dL (7-18) H Creatinine 1.8 MG/DL (0.55-1.30) H Estimat Glomerular Filtration Rate 38.8 mL/min (>60) Glucose Level 148 MG/DL (74-106) H Calcium Level 8.4 MG/DL (8.5-10.1) L Phosphorus Level 2.1 MG/DL (2.5-4.9) L Magnesium Level 1.6 MG/DL (1.8-2.4) L Total Bilirubin 0.5 MG/DL (0.2-1.0) Aspartate Amino Transf (AST/SGOT) 41 U/L (15-37) H Alanine Aminotransferase (ALT/SGPT) 50 U/L (12-78) Alkaline Phosphatase 137 U/L (46-116) H Total Protein 5.2 G/DL (6.4-8.2) L Albumin 2.0 G/DL (3.4-5.0) L Globulin 3.2 g/dL Albumin/Globulin Ratio 0.6 (1.0-2.7) L Vancomycin Level Trough 8.1 ug/mL (5.0-12.0) Objective HEAD AND NECK: No JVD. S/P tracheostomy with NG tube LUNGS: Coarse rhonchi. CARDIOVASCULAR: Regular S1 and S2 with no gallop or murmur. ABDOMEN: Soft.PEG in place EXTREMITIES: 1 plus pitting edema. Murray Francois MD Mar 07, 2019 13:35
[2019-03-07] MEDS ORDERED: Sodium Phosphate 15 MM in NS 275 ML IVPB SCH (14:00)
--- NOTE | 2019-03-07 14:00 | NUR ---
NURSE NOTES: Currently on Fentanyl 80mcg/hr. Patient opens eyes to voice, then goes back to sleep. RASS -1. Will continue to monitor.
--- NOTE | 2019-03-07 14:52 | Diagnostic Imaging Report ---
Indication: Dyspnea Comparison: 03/03/2019 A single view chest radiograph was obtained. Findings: There is enlargement of the cardiac silhouette with pulmonary vascular redistribution and prominence, hazy vessel margins and the suggestion of interstitial edema consistent with CHF. Tracheostomy noted. PICC line is in good position unchanged. IMPRESSION: CHF unchanged
--- NOTE | 2019-03-07 15:00 | NUR ---
NURSE NOTES: MG 4G REPLACED, SODIUM PHOS REPLACED WELL. PT IN BED NO DISTRESS NOTED.
[2019-03-07] MEDS ORDERED: NS 275ml ONE (15:35)
[2019-03-07] MEDS ORDERED: Sterile Water Irrig 1000ml IRRIG ONE (15:35)
--- NOTE | 2019-03-07 16:34 | Surgery Progress Note ---
Surgery Progress Note Subjective Procedure Performed tracheostomy Additional Comments off vent doing much better awake responsive says he is well labs noted Objective Last 24 Hour Vital Signs Date Time Temp Pulse Resp B/P (MAP) Pulse Ox O2 Delivery O2 Flow Rate FiO2 03/07/19 16:00 99.5 80 18 131/50 (77) 100 03/07/19 16:00 40 03/07/19 16:00 Mechanical Ventilator Mechanical Ventilator 03/07/19 15:30 T-piece 03/07/19 15:30 79 18 114/53 (73) 83 03/07/19 15:05 74 20 40 03/07/19 15:00 T-piece 03/07/19 15:00 77 16 130/64 (86) 100 03/07/19 14:30 75 19 133/57 (82) 100 03/07/19 14:30 T-piece 03/07/19 14:00 78 16 140/65 (90) 100 03/07/19 14:00 T-piece 03/07/19 13:42 127/63 03/07/19 13:41 T-piece 03/07/19 13:41 127/63 03/07/19 13:30 T-piece 03/07/19 13:14 74 20 100 Mechanical Ventilator 40 03/07/19 13:06 75 20 100 Trach Collar 12.0 40 03/07/19 13:06 76 20 40 03/07/19 13:00 74 20 134/54 (80) 100 03/07/19 13:00 Trach Collar 03/07/19 12:30 74 16 137/54 (81) 100 03/07/19 12:00 72 03/07/19 12:00 Mechanical Ventilator Mechanical Ventilator 03/07/19 12:00 98.9 74 17 141/100 (114) 100 03/07/19 11:30 72 17 134/56 (82) 100 03/07/19 11:22 Trach Collar 40 03/07/19 11:01 75 20 40 03/07/19 11:00 73 20 130/52 (78) 99 03/07/19 11:00 T-piece 03/07/19 10:30 T-piece 03/07/19 10:00 T-piece 03/07/19 10:00 80 20 129/56 (80) 100 03/07/19 09:29 82 131/53 03/07/19 09:29 81 131/53 03/07/19 09:23 T-piece 03/07/19 09:02 40 03/07/19 09:00 87 18 113/46 (68) 100 03/07/19 09:00 T-piece 03/07/19 09:00 82 20 40 03/07/19 08:30 85 20 103/43 (63) 100 03/07/19 08:30 Mechanical Ventilator 03/07/19 08:00 100.0 91 17 144/57 (86) 100 03/07/19 08:00 94 03/07/19 08:00 Mechanical Ventilator 03/07/19 08:00 Mechanical Ventilator Mechanical Ventilator 03/07/19 08:00 40 03/07/19 07:30 92 16 136/74 (94) 99 03/07/19 07:30 Mechanical Ventilator 03/07/19 07:20 40 03/07/19 07:17 80 20 100 Mechanical Ventilator 40 03/07/19 07:05 80 20 100 Mechanical Ventilator 40 03/07/19 07:00 74 25 121/55 (77) 100 03/07/19 07:00 80 24 40 40 03/07/19 07:00 Mechanical Ventilator 03/07/19 06:30 74 20 128/54 (78) 100 03/07/19 06:00 73 24 153/56 (88) 100 03/07/19 06:00 Mechanical Ventilator 40 03/07/19 05:45 77 21 136/58 (84) 100 03/07/19 05:42 136/56 03/07/19 05:42 136/56 03/07/19 05:30 71 22 136/56 (82) 100 03/07/19 05:15 71 24 132/53 (79) 100 03/07/19 05:02 71 25 40 03/07/19 05:00 21 Mechanical Ventilator 40 03/07/19 05:00 74 19 127/85 (99) 100 03/07/19 04:45 71 22 137/55 (82) 100 03/07/19 04:30 72 20 132/58 (82) 100 03/07/19 04:00 40 03/07/19 04:00 Mechanical Ventilator Mechanical Ventilator 03/07/19 04:00 22 Mechanical Ventilator 40 03/07/19 04:00 98.9 75 22 117/53 (74) 99 7/17/19 04:00 77 03/07/19 03:30 75 22 152/59 (90) 100 03/07/19 03:05 70 24 40 03/07/19 03:00 69 24 136/54 (81) 99 03/07/19 03:00 23 Mechanical Ventilator 40 03/07/19 02:30 70 24 129/48 (75) 100 03/07/19 02:00 71 24 129/47 (74) 100 03/07/19 02:00 23 Mechanical Ventilator 40 03/07/19 01:30 73 23 128/53 (78) 100 03/07/19 01:13 71 24 100 Mechanical Ventilator 40 03/07/19 01:03 71 24 100 Mechanical Ventilator 40 03/07/19 01:03 71 24 40 03/07/19 01:00 22 Mechanical Ventilator 40 03/07/19 01:00 71 23 134/54 (80) 100 03/07/19 00:30 68 24 128/56 (80) 98 03/07/19 00:00 Mechanical Ventilator Mechanical Ventilator 03/07/19 00:00 68 03/07/19 00:00 99.0 69 24 129/52 (77) 100 03/07/19 00:00 23 Mechanical Ventilator 40 03/07/19 00:00 40 03/06/19 23:30 68 24 131/48 (75) 99 03/06/19 23:00 22 Mechanical Ventilator 40 03/06/19 23:00 68 24 132/47 (75) 100 03/06/19 22:52 98.9 03/06/19 22:46 69 24 40 03/06/19 22:30 69 24 130/46 (74) 99 03/06/19 22:16 22 Mechanical Ventilator 40 03/06/19 22:02 128/47 03/06/19 22:02 128/47 03/06/19 22:00 69 23 131/52 (78) 100 03/06/19 22:00 23 Mechanical Ventilator 40 03/06/19 21:45 70 24 128/47 (74) 100 03/06/19 21:30 22 Mechanical Ventilator 40 03/06/19 21:30 68 24 132/48 (76) 100 03/06/19 21:15 23 Mechanical Ventilator 40 03/06/19 21:15 70 24 138/52 (80) 100 03/06/19 21:00 72 23 136/50 (78) 100 03/06/19 21:00 23 Mechanical Ventilator 40 03/06/19 20:50 72 24 40 03/06/19 20:32 71 123/47 03/06/19 20:30 70 24 115/45 (68) 98 03/06/19 20:00 98.9 72 22 123/47 (72) 98 03/06/19 20:00 22 Mechanical Ventilator 40 03/06/19 20:00 Mechanical Ventilator Mechanical Ventilator 03/06/19 20:00 74 03/06/19 20:00 40 03/06/19 19:30 79 25 132/58 (82) 100 03/06/19 19:13 79 26 100 Mechanical Ventilator 40 03/06/19 19:03 75 24 100 Mechanical Ventilator 40 03/06/19 19:03 75 24 40 03/06/19 19:00 24 Mechanical Ventilator 40 03/06/19 19:00 83 19 131/53 (79) 99 03/06/19 18:30 68 22 131/51 (77) 99 03/06/19 18:01 24 Mechanical Ventilator 40 03/06/19 18:00 69 24 128/49 (75) 100 03/06/19 17:00 24 Mechanical Ventilator 40 03/06/19 17:00 81 23 150/67 (94) 99 03/06/19 16:55 80 24 40 I&O Intake and Output 03/06/19 03/07/19 19:00 07:00 Intake Total 1353.416 ml 950 ml Output Total 1450 ml 1225 ml Balance -96.584 ml -275 ml Free Water 120 ml IV Total 717.416 ml 314 ml Tube Feeding 516 ml 516 ml Other 120 ml Output Urine Total 1350 ml 1225 ml Stool Total 100 ml Dressing: dry Wound: clean Cardiovascular: RSR Respiratory: clear Abdomen: soft, present bowel sounds, non-distended Extremities: no cyanosis Laboratory Tests Test 03/07/19 04:20 03/07/19 07:34 White Blood Count 2.7 K/UL (4.8-10.8) L Red Blood Count 2.88 M/UL (4.70-6.10) L Hemoglobin 8.3 G/DL (14.2-18.0) L Hematocrit 25.0 % (42.0-52.0) L Mean Corpuscular Volume 87 FL (80-99) Mean Corpuscular Hemoglobin 28.7 PG (27.0-31.0) Mean Corpuscular Hemoglobin Concent 33.1 G/DL (32.0-36.0) Red Cell Distribution Width 16.2 % (11.6-14.8) H Platelet Count 94 K/UL (150-450) L Mean Platelet Volume 6.3 FL (6.5-10.1) L Neutrophils (%) (Auto) % (45.0-75.0) Lymphocytes (%) (Auto) % (20.0-45.0) Monocytes (%) (Auto) % (1.0-10.0) Eosinophils (%) (Auto) % (0.0-3.0) Basophils (%) (Auto) % (0.0-2.0) Differential Total Cells Counted 100 Neutrophils % (Manual) 42 % (45-75) L Lymphocytes % (Manual) 42 % (20-45) Monocytes % (Manual) 11 % (1-10) H Eosinophils % (Manual) 5 % (0-3) H Basophils % (Manual) 0 % (0-2) Band Neutrophils 0 % (0-8) Platelet Estimate Decreased L Platelet Morphology Normal Anisocytosis 1+ Sodium Level 136 MMOL/L (136-145) Potassium Level 3.6 MMOL/L (3.5-5.1) Chloride Level 100 MMOL/L (98-107) Carbon Dioxide Level 31 MMOL/L (21-32) Anion Gap 5 mmol/L (5-15) Blood Urea Nitrogen 25 mg/dL (7-18) H Creatinine 1.8 MG/DL (0.55-1.30) H Estimat Glomerular Filtration Rate 38.8 mL/min (>60) Glucose Level 148 MG/DL (74-106) H Calcium Level 8.4 MG/DL (8.5-10.1) L Phosphorus Level 2.1 MG/DL (2.5-4.9) L Magnesium Level 1.6 MG/DL (1.8-2.4) L Total Bilirubin 0.5 MG/DL (0.2-1.0) Aspartate Amino Transf (AST/SGOT) 41 U/L (15-37) H Alanine Aminotransferase (ALT/SGPT) 50 U/L (12-78) Alkaline Phosphatase 137 U/L (46-116) H Total Protein 5.2 G/DL (6.4-8.2) L Albumin 2.0 G/DL (3.4-5.0) L Globulin 3.2 g/dL Albumin/Globulin Ratio 0.6 (1.0-2.7) L Vancomycin Level Trough 8.1 ug/mL (5.0-12.0) Plan Problems: (1) Hypoxia Assessment & Plan: Extensive bilateral upper lobe infiltrates likely inflammatory/infectious. Correlate clinically. Tuberculosis is not excludable. Bilateral pleural effusions. Endotracheal tube and nasogastric tube in good position Atherosclerotic vascular disease (2) Respiratory distress Assessment & Plan: off vent s/p trach improving (3) Sepsis Assessment & Plan: Sepsis with tachycardia, leukocytosis - resolved, abnormal labs, respiratory distress on vent Cont IV abx appreciate ICU team care abnormal lft's US noted will cont to follow with recs trend labs Rx as written can start diet soon speech Moiz Rodriguez Mar 07, 2019 16:34
--- NOTE | 2019-03-07 18:00 | NUR ---
NURSE NOTES: PT RESTLESS, KICKING LEGS, PULLING AT RESTRAINTS, KICKING PILLOWS TO FLOOR AND KICKING LEGS. ATIVAN GIVEN 2MG/ 1ML IVP. WILL MONITOR PT CLOSELY
--- NOTE | 2019-03-07 18:14 | General Progress Note ---
Assessment/Plan Status: stable Assessment/Plan: 58 y Male admitted to the hospital due to fever, shortness of breath and chest pain. # Multilobar pneumonia in patient with HIV - Broad sp atbx started. Continue Zosyn, Vancomycin, Azithromycin, TM-SMX ( now prophylactic and completed course for PCP/PJ pnuemonia ) - Fluconazole per ID - Droplet precaution removed. - Flu swab negative - Oxygen support, ventilatory support as not able to wean off ventilator due to agitation. - ID consult appreciated. # Hypoxemic respiratory failure - Critical care follow up. Unable to wean off the ventilator. Tracheostomy completed. - Due to pneumonia - Tolerating CPAP 03/06 # Chest pain - EKG with bifascicular block RBB and LAFB, no ST changes. - Trend troponin x3 completed - ECHO completed with no WMA and preserved EF. Dr. Francois consulted. Consideration for outpatient cath vs possibly myocarditis due to underlying viral infection. No evidence of Takotsubo per TTE. - NGT prn - Pain control with morphine # HIV - Continue HARRT - VL is undetectable per patient report. T cell count > 400 - CD 4 count 191 # HTN - Resume home medication - Clonidine, Isordil added. # [place] hyponatremia - Monitor - good response to NS # CKD 2-3 - Trend renal function - Worsening creatinine to 2.8 today. 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 Gasca for ATTENDING PSYCHIATRIST if needed again in the future. Currently renal function stable and L femoral dialysis access removed. - R PICC done last week. # Failure to thrive and moderate protein caloric malnutrition - PEG 03/05 - Tube feeds started and tolerating - Dr. Ricketts following up. # Hypokalemia - Replete today # Hypophosphatemia - Replete today # Diabetes Mellitus - Lantus 10 BID - Endocrinology following up appreciated. - Resolved hypoglycemia 03/06 # Loose stool - C diff negative 03/07 DVT and GI ppx Full code Subjective ROS Limited/Unobtainable: Yes Allergies: Coded Allergies: No Known Allergies (Unverified , 02/05/13) Objective Last 24 Hour Vital Signs Date Time Temp Pulse Resp B/P (MAP) Pulse Ox O2 Delivery O2 Flow Rate FiO2 03/07/19 16:00 99.5 80 18 131/50 (77) 100 03/07/19 16:00 40 03/07/19 16:00 Mechanical Ventilator Mechanical Ventilator 03/07/19 15:30 T-piece 03/07/19 15:30 79 18 114/53 (73) 83 03/07/19 15:05 74 20 40 03/07/19 15:00 T-piece 03/07/19 15:00 77 16 130/64 (86) 100 03/07/19 14:30 75 19 133/57 (82) 100 03/07/19 14:30 T-piece 03/07/19 14:00 78 16 140/65 (90) 100 03/07/19 14:00 T-piece 03/07/19 13:42 127/63 03/07/19 13:41 T-piece 03/07/19 13:41 127/63 03/07/19 13:30 T-piece 03/07/19 13:14 74 20 100 Mechanical Ventilator 40 03/07/19 13:06 75 20 100 Trach Collar 12.0 40 03/07/19 13:06 76 20 40 03/07/19 13:00 74 20 134/54 (80) 100 03/07/19 13:00 Trach Collar 03/07/19 12:30 74 16 137/54 (81) 100 03/07/19 12:00 72 03/07/19 12:00 Mechanical Ventilator Mechanical Ventilator 03/07/19 12:00 98.9 74 17 141/100 (114) 100 03/07/19 11:30 72 17 134/56 (82) 100 03/07/19 11:22 Trach Collar 40 03/07/19 11:01 75 20 40 03/07/19 11:00 73 20 130/52 (78) 99 03/07/19 11:00 T-piece 03/07/19 10:30 T-piece 03/07/19 10:00 T-piece 03/07/19 10:00 80 20 129/56 (80) 100 03/07/19 09:29 82 131/53 03/07/19 09:29 81 131/53 03/07/19 09:23 T-piece 03/07/19 09:02 40 03/07/19 09:00 87 18 113/46 (68) 100 03/07/19 09:00 T-piece 03/07/19 09:00 82 20 40 7/17/19 08:30 85 20 103/43 (63) 100 03/07/19 08:30 Mechanical Ventilator 03/07/19 08:00 100.0 91 17 144/57 (86) 100 03/07/19 08:00 94 03/07/19 08:00 Mechanical Ventilator 03/07/19 08:00 Mechanical Ventilator Mechanical Ventilator 03/07/19 08:00 40 03/07/19 07:30 92 16 136/74 (94) 99 03/07/19 07:30 Mechanical Ventilator 03/07/19 07:20 40 03/07/19 07:17 80 20 100 Mechanical Ventilator 40 03/07/19 07:05 80 20 100 Mechanical Ventilator 40 03/07/19 07:00 74 25 121/55 (77) 100 03/07/19 07:00 80 24 40 40 03/07/19 07:00 Mechanical Ventilator 03/07/19 06:30 74 20 128/54 (78) 100 03/07/19 06:00 73 24 153/56 (88) 100 03/07/19 06:00 Mechanical Ventilator 40 03/07/19 05:45 77 21 136/58 (84) 100 03/07/19 05:42 136/56 03/07/19 05:42 136/56 03/07/19 05:30 71 22 136/56 (82) 100 03/07/19 05:15 71 24 132/53 (79) 100 03/07/19 05:02 71 25 40 03/07/19 05:00 21 Mechanical Ventilator 40 03/07/19 05:00 74 19 127/85 (99) 100 03/07/19 04:45 71 22 137/55 (82) 100 03/07/19 04:30 72 20 132/58 (82) 100 03/07/19 04:00 40 03/07/19 04:00 Mechanical Ventilator Mechanical Ventilator 03/07/19 04:00 22 Mechanical Ventilator 40 03/07/19 04:00 98.9 75 22 117/53 (74) 99 03/07/19 04:00 77 03/07/19 03:30 75 22 152/59 (90) 100 03/07/19 03:05 70 24 40 03/07/19 03:00 69 24 136/54 (81) 99 03/07/19 03:00 23 Mechanical Ventilator 40 03/07/19 02:30 70 24 129/48 (75) 100 03/07/19 02:00 71 24 129/47 (74) 100 03/07/19 02:00 23 Mechanical Ventilator 40 03/07/19 01:30 73 23 128/53 (78) 100 03/07/19 01:13 71 24 100 Mechanical Ventilator 40 03/07/19 01:03 71 24 100 Mechanical Ventilator 40 03/07/19 01:03 71 24 40 03/07/19 01:00 22 Mechanical Ventilator 40 03/07/19 01:00 71 23 134/54 (80) 100 03/07/19 00:30 68 24 128/56 (80) 98 03/07/19 00:00 Mechanical Ventilator Mechanical Ventilator 03/07/19 00:00 68 03/07/19 00:00 99.0 69 24 129/52 (77) 100 03/07/19 00:00 23 Mechanical Ventilator 40 03/07/19 00:00 40 03/06/19 23:30 68 24 131/48 (75) 99 03/06/19 23:00 22 Mechanical Ventilator 40 03/06/19 23:00 68 24 132/47 (75) 100 03/06/19 22:52 98.9 03/06/19 22:46 69 24 40 03/06/19 22:30 69 24 130/46 (74) 99 03/06/19 22:16 22 Mechanical Ventilator 40 03/06/19 22:02 128/47 03/06/19 22:02 128/47 03/06/19 22:00 69 23 131/52 (78) 100 03/06/19 22:00 23 Mechanical Ventilator 40 03/06/19 21:45 70 24 128/47 (74) 100 03/06/19 21:30 22 Mechanical Ventilator 40 03/06/19 21:30 68 24 132/48 (76) 100 03/06/19 21:15 23 Mechanical Ventilator 40 03/06/19 21:15 70 24 138/52 (80) 100 03/06/19 21:00 72 23 136/50 (78) 100 03/06/19 21:00 23 Mechanical Ventilator 40 03/06/19 20:50 72 24 40 03/06/19 20:32 71 123/47 03/06/19 20:30 70 24 115/45 (68) 98 03/06/19 20:00 98.9 72 22 123/47 (72) 98 03/06/19 20:00 22 Mechanical Ventilator 40 03/06/19 20:00 Mechanical Ventilator Mechanical Ventilator 03/06/19 20:00 74 03/06/19 20:00 40 03/06/19 19:30 79 25 132/58 (82) 100 03/06/19 19:13 79 26 100 Mechanical Ventilator 40 03/06/19 19:03 75 24 100 Mechanical Ventilator 40 03/06/19 19:03 75 24 40 03/06/19 19:00 24 Mechanical Ventilator 40 03/06/19 19:00 83 19 131/53 (79) 99 03/06/19 18:30 68 22 131/51 (77) 99 Intake and Output 03/06/19 03/07/19 18:59 06:59 Intake Total 1233.416 ml 1080 ml Output Total 1330 ml 1350 ml Balance -96.584 ml -270 ml Free Water 120 ml IV Total 597.416 ml 444 ml Tube Feeding 516 ml 516 ml Other 120 ml Output Urine Total 1330 ml 1250 ml Stool Total 100 ml Laboratory Tests 03/07/19 04:20: White Blood Count 2.7L, Red Blood Count 2.88L, Hemoglobin 8.3L, Hematocrit 25.0L , Mean Corpuscular Volume 87, Mean Corpuscular Hemoglobin 28.7, Mean Corpuscular Hemoglobin Concent 33.1, Red Cell Distribution Width 16.2H, Platelet Count 94L, Mean Platelet Volume 6.3L, Neutrophils (%) (Auto) , Lymphocytes (%) (Auto) , Monocytes (%) (Auto) , Eosinophils (%) (Auto) , Basophils (%) (Auto) , Differential Total Cells Counted 100, Neutrophils % ( Manual) 42L, Lymphocytes % (Manual) 42, Monocytes % (Manual) 11H, Eosinophils % (Manual) 5H, Basophils % (Manual) 0, Band Neutrophils 0, Platelet Estimate DecreasedL, Platelet Morphology Normal, Anisocytosis 1+, Sodium Level 136, Potassium Level 3.6, Chloride Level 100, Carbon Dioxide Level 31, Anion Gap 5, Blood Urea Nitrogen 25H, Creatinine 1.8H, Estimat Glomerular Filtration Rate 38.8, Glucose Level 148H, Calcium Level 8.4L, Phosphorus Level 2.1L, Magnesium Level 1.6L, Total Bilirubin 0.5, Aspartate Amino Transf (AST/SGOT) 41H, Alanine Aminotransferase (ALT/SGPT) 50, Alkaline Phosphatase 137H, Total Protein 5.2L, Albumin 2.0L, Globulin 3.2, Albumin/Globulin Ratio 0.6L 03/07/19 07:34: Vancomycin Level Trough 8.1 Height (Feet): 6 Height (Inches): 0.00 Weight (Pounds): 250 General Appearance: WD/WN EENT: PERRL/EOMI Neck: non-tender Cardiovascular: normal rate Respiratory/Chest: lungs clear, normal breath sounds Abdomen: non tender Neurologic: 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
--- NOTE | 2019-03-07 18:24 | NUR ---
NURSE NOTES: MD GUIDRY HERE TO SEE PT. NO NEW ORDERS
--- NOTE | 2019-03-07 19:30 | NUR ---
NURSE NOTES: Received pt in no acute distress. Asleep but arousable to name and touch. Calm at this time but continues to be on bilat soft wrist restraints as pt tends to be impulsive and gets agitated easily. Trach intact, no bleeding. On T piece with cool mist at 40%, saturating 96-98%. Secretions minimal. Breath sounds still diminished at bases. PICC on KATIE intact, dressing clean and dry. Fentanyl gtt infusing at 80mcg/h. Newly placed PEG patent; abdominal binder in place. GTF with Glucerna 1.5 running at 43ml/h with 0 residuals. Rectal tube intact, FC patent. Will turn Fentanyl gtt off and administer PRN Ativan for restlessness and agitation.
--- NOTE | 2019-03-07 19:53 | NUR ---
HAND-OFF: Report given to ALBERTINA ZARATE. PT IN NO ACUTE DISTRESS.
[2019-03-07] MEDS: Dyna-Hex 2% Top Sol 2oz TOPIC SCH (20:40)
[2019-03-07] MEDS: Maxitrol Opth Oint 3.5gm BOTH EYES SCH (20:41)
[2019-03-07] MEDS: Miralax 17gm pkt ORAL SCH (20:42)
--- NOTE | 2019-03-07 21:00 | NUR ---
NURSE NOTES: Pt awake and restless; squirming and body arched. Attempts to kick staff. Ativan 2 mg IVP given
--- NOTE | 2019-03-07 22:00 | NUR ---
NURSE NOTES: Calm, sleeping. No distress,. Fentanyl gtt remains off
--- NOTE | 2019-03-07 22:49 | NUR ---
NURSE NOTES: Awake and agitated. Reassured but pt uncooperative and combative. Versed 1 mg IVP given
[2019-03-08] VITALS (24 sets, daily range): BP systolic 118–153; BP diastolic 47–63
--- NOTE | 2019-03-08 | NUR ---
NURSE NOTES: Calm, asleep, afebrile; VSS. No distress. Restraints renewed.
[2019-03-08] MEDS: Metoclopramide 10mg/2ml Inj IVP SCH ×3 (00:33→16:52)
[2019-03-08] MEDS: Albuterol/Ipratropium 3ml neb HHN SCH ×4 (00:48→19:10)
[2019-03-08] MEDS: LORazepam Inj 2mg/ml 1ml IV PRN ×3 (02:57→16:52)
--- NOTE | 2019-03-08 02:57 | NUR ---
NURSE NOTES: Awake and agitated, uncooperative, combative. Ativan 2 mg IVP given
[2019-03-08] MEDS: Midazolam 2mg/2ml Inj IVP PRN ×2 (03:30→10:03)
--- NOTE | 2019-03-08 03:30 | NUR ---
NURSE NOTES: Still awake, restless;agitated. Squirming, body arched and trying to get out of restraints. Struggling, uncooperative and combative. Versed 1 mg IVP given
--- NOTE | 2019-03-08 04:30 | NUR ---
NURSE NOTES: Calm, sleeping. Complete bed bath done. No skin breakdown. Edema had gone down. Tolerates T piece with CM at 40% fiO2. Trach site intact, no bleeding noted. FC patent, draining good amt of urine. Rectal tube irrigated. PEG intact, no bleeding noted on exit site; abd binder remains in place. Fentanyl gtt had been off all night. PICC patent. Afebrile, BP stable on NSR.
[2019-03-08 04:59] LABS: HEMATOCRIT 22.9 % (42.0-52.0); HEMOGLOBIN 7.6 G/DL (14.2-18.0); MEAN CORPUSCULAR VOLUME 87 FL (80-99); PLATELET COUNT 93 K/UL (150-450); RED BLOOD COUNT 2.63 M/UL (4.70-6.10); RED CELL DISTRIBUTION WIDTH 15.7 % (11.6-14.8); WHITE BLOOD COUNT 2.5 K/UL (4.8-10.8)
[2019-03-08 05:10] LABS: ALANINE AMINOTRANSFERASE 45 U/L (12-78); ALBUMIN/GLOBULIN RATIO 0.7 (1.0-2.7); ALKALINE PHOSPHATASE 144 U/L (46-116); ANION GAP 4 mmol/L (5-15); ASPARTATE AMINO TRANSFERASE 38 U/L (15-37); BILIRUBIN,TOTAL 0.5 MG/DL (0.2-1.0); BLOOD UREA NITROGEN 24 mg/dL (7-18); CALCIUM 8.4 MG/DL (8.5-10.1); CARBON DIOXIDE 32 MMOL/L (21-32); CHLORIDE 100 MMOL/L (98-107); CREATININE 1.6 MG/DL (0.55-1.30); PHOSPHORUS 2.8 MG/DL (2.5-4.9); POTASSIUM 3.9 MMOL/L (3.5-5.1); SODIUM 136 MMOL/L (136-145)
[2019-03-08] MEDS: cloNIDine 0.2mg Tab NG SCH ×3 (05:33→21:46)
[2019-03-08] MEDS: HydrALAZINE 50mg tab NG SCH ×3 (05:33→21:46)
[2019-03-08] MEDS: NovoLOG Insulin Flexpen SUBQ SCH ×3 (05:34→17:17)
[2019-03-08] MEDS: Lacri-Lube Opth Oint 3.5gm BOTH EYES SCH ×4 (05:35→20:18)
--- NOTE | 2019-03-08 07:05 | NUR ---
HAND-OFF: Report given to Cora ZARATE.
--- NOTE | 2019-03-08 07:06 | NUR ---
RESPIRATORY NOTE: received pt on t-piece CA 40%. trach size SH8, secured via trach tie/guard with no signs of resp distress. vent on s/b. no redness or skin tears near stoma. will cont to monitor.
--- NOTE | 2019-03-08 07:33 | NUR ---
NURSE NOTES: Received report from Ray ZARATE. Pt drowsy but opens eyes to name and shaking. withdraws to pain. AAOX1. pt on monitor. VSS. Trach Shiley 8.0. T-piece FiO2 40%. Diminished lung sounds and rhonchi noted. Secretions phipps, thick. abdomen round, non tender. rectal tube draining loose brown stool. PEG in tact, abdominal binder present. tube feeding running Glucerna 1.5 @43 ml/hr. No residual. KATIE PICC, Fentanyl drip d/c per PM RN. Simon connected, light scott. Bilateral wrist restraints intact. circulation check and active ROM allowed. pt continues to reach for trach and tubings. SCDs in place. On P200 mattress. HOB elevated. Bed alarm on. Call light within reach. Bed locked and in low position.
--- NOTE | 2019-03-08 08:29 | Neurology Progress Note ---
Interim History Interim History ROS Limited/Unobtainable: Yes Complaints: AMS Interim History alert and wake, ventilating on room air now Objective Physical Exam Last Vital Signs Date Time Temp Pulse Resp B/P (MAP) Pulse Ox O2 Delivery O2 Flow Rate FiO2 03/08/19 08:00 Mechanical Ventilator Mechanical Ventilator 03/08/19 08:00 79 26 140/51 (80) 99 03/08/19 07:09 12.0 40 03/08/19 04:00 98.2 Laboratory Tests Test 03/08/19 04:00 White Blood Count 2.5 K/UL (4.8-10.8) L Red Blood Count 2.63 M/UL (4.70-6.10) L Hemoglobin 7.6 G/DL (14.2-18.0) L Hematocrit 22.9 % (42.0-52.0) L Mean Corpuscular Volume 87 FL (80-99) Mean Corpuscular Hemoglobin 29.0 PG (27.0-31.0) Mean Corpuscular Hemoglobin Concent 33.2 G/DL (32.0-36.0) Red Cell Distribution Width 15.7 % (11.6-14.8) H Platelet Count 93 K/UL (150-450) L Mean Platelet Volume 6.4 FL (6.5-10.1) L Neutrophils (%) (Auto) % (45.0-75.0) Lymphocytes (%) (Auto) % (20.0-45.0) Monocytes (%) (Auto) % (1.0-10.0) Eosinophils (%) (Auto) % (0.0-3.0) Basophils (%) (Auto) % (0.0-2.0) Differential Total Cells Counted 100 Neutrophils % (Manual) 50 % (45-75) Lymphocytes % (Manual) 34 % (20-45) Monocytes % (Manual) 13 % (1-10) H Eosinophils % (Manual) 2 % (0-3) Basophils % (Manual) 1 % (0-2) Band Neutrophils 0 % (0-8) Platelet Estimate Decreased L Platelet Morphology Normal Hypochromasia 3+ Anisocytosis 1+ Spherocytes 2+ Sodium Level 136 MMOL/L (136-145) Potassium Level 3.9 MMOL/L (3.5-5.1) Chloride Level 100 MMOL/L (98-107) Carbon Dioxide Level 32 MMOL/L (21-32) Anion Gap 4 mmol/L (5-15) L Blood Urea Nitrogen 24 mg/dL (7-18) H Creatinine 1.6 MG/DL (0.55-1.30) H Estimat Glomerular Filtration Rate 44.5 mL/min (>60) Glucose Level 156 MG/DL (74-106) H Calcium Level 8.4 MG/DL (8.5-10.1) L Phosphorus Level 2.8 MG/DL (2.5-4.9) Magnesium Level 2.0 MG/DL (1.8-2.4) Total Bilirubin 0.5 MG/DL (0.2-1.0) Aspartate Amino Transf (AST/SGOT) 38 U/L (15-37) H Alanine Aminotransferase (ALT/SGPT) 45 U/L (12-78) Alkaline Phosphatase 144 U/L (46-116) H Total Protein 5.0 G/DL (6.4-8.2) L Albumin 2.0 G/DL (3.4-5.0) L Globulin 3.0 g/dL Albumin/Globulin Ratio 0.7 (1.0-2.7) L General: well developed, well nourished, other Head: normocophalic, other Neck: no rigidity EENT: benign, other Neurologic Exam Mental Status: awake, other Speech: other Language: other Cranial Nerve II: other Cranial Nerves III, IV, : other Cranial Nerve V: other Cranial Nerve VII: other Cranial Nerve VIII: other Cranial Nerve IX: other Cranial Nerve X: other Cranial Nerve XI: other Cranial Nerve XII: other Motor System: other Sensory: other Coordination: other Deep Tendon Reflexes: 0 bicep (L), 0 bicep (R), 0 tricep (L), 0 tricep (R), 0 brachioradialis (L), 0 brachioradialis (R), 0 knee (L), 0 knee (R), 0 ankle (L) , 0 ankle (R) Reflexes: mute plantar (L), mute plantar (R) Stance: other Gait: other Objective sp trach awake, can tell me his name pupils are symmetric and reactive corneals present Antigravity in all 4 symmetric Impression/Recommendations Problems: (1) AIDS (2) Anemia (3) Anxiety (4) Diabetes (5) Hypertension (6) HIV disease (7) CKD (chronic kidney disease) (8) History of stroke (9) NSTEMI (non-ST elevated myocardial infarction) (10) MDD (major depressive disorder), recurrent episode, moderate (11) Respiratory distress (12) Hypoxia (13) HIV (human immunodeficiency virus infection) (14) Acute coronary syndrome (15) Elevated troponin (16) Pneumonia (17) Acute hypoxemic respiratory failure (18) Endotracheally intubated (19) ISH (acute kidney injury) (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 (33) acute small R pontomedullary and left cerebellar peduncle strokes. (34) r/o cerebellar stroke (35) acute ischemic MAXILLOFACIAL SURGEON stroke, bylateral (36) Bylateral MAXILLOFACIAL SURGEON severe stenosis (37) Chemosis of conjunctiva of both eyes (38) Respiratory failure Status: stable Recommendations monitor neuro status vent management per icu map > 65 no focal neuro exam - monitor Follow commands Wean off vent Mayito Escobar MD Mar 08, 2019 08:28
--- NOTE | 2019-03-08 08:42 | NUR ---
NURSE NOTES: pt aggitated kicking legs in air, pulling at restraints, slidding down in bed. ativangiven ivp. will continue to monitor pt.
[2019-03-08] MEDS: Docusate 100mg/10ml Liq GT SCH ×3 (09:00→17:02)
[2019-03-08] MEDS: Meropenem 1 GM in NS 55 ML IVPB SCH ×2 (09:23→20:18)
[2019-03-08] MEDS: Vancomycin 1.25gm Premix IVPB SCH (09:24)
[2019-03-08] MEDS: ETRAVIRINE 200 MG ORAL SCH (09:25)
[2019-03-08] MEDS: RALTEGRAVIR 400 MG ORAL SCH ×2 (09:25→17:03)
[2019-03-08] MEDS: TENOFOVIR DISOPROXIL FUMARATE 300 MG ORAL SCH (09:25)
[2019-03-08] MEDS: Pantoprazole Inj IVP SCH (09:26)
[2019-03-08] MEDS: Sennosides 8.6mg tab ORAL SCH (09:28)
[2019-03-08] MEDS: Bactrim-DS 1 tab ORAL SCH (09:28)
[2019-03-08] MEDS: Heparin 5000 units/ml inj SUBQ SCH ×2 (09:40→20:27)
[2019-03-08] MEDS: Levemir Flexpen SUBQ SCH ×2 (09:41→20:27)
--- NOTE | 2019-03-08 09:46 | Hematology/Onc Progress Note ---
Assessment/Plan Assessment/Plan ASSESSMENT AND RECS: # Pancytopenia with all three cell lines have, decreasing counts could also be due to underlying hiv meds, sepsis as well as HIV --> Anemia workup has been reviewed. Ferritin 182 --> Hep panel pending and HIV confirmed positive --> No evidence of hemolysis is noted, peripheral smear has been reviewed. --> Hgb goal >7. Transfuse prn. --> Epogen or iron at this time is not particularly indicated --> Medications have been reviewed --> Stool OB negative --> Blood tx: 1 unit on 02/10/19, --> off ASA, off heparin, off lovenox --> Hgb trend: 7.6-->8.2-->9.4-->8.4-->8.2 -->8.9-->10.3->7.9-->8.1->7.8-->8.7-- >8.4-->8.1-->7.9-->8.2-->7.6 --> WBC 5-->4-->3.2-->3.1-->3.4 --> Plt trend: 153-->257-->224-->205-->253-->310-->201->177-->115-->104-->100--> 106-->96k-->93k --> Transfuse if Plt < 20k and fever, or if Plt < 10k without fever --> WILLIAM screen negative # Multilobar pneumonia in patient with HIV. Recs per ID. --> Broad sp atbx started. Continue on abx as per id --> Droplet precaution # Hypoxemic respiratory failure. s/p trach --> Due to pneumonia, on abx --> pulm recs reviewed --> SBT as per pulm # Chest pain. Cardiology is following, appreciate recs --> EKG with bifascicular block RBB and LAFB, no ST changes --> Trend troponin x3 --> NGT prn # HIV. --> Continue HARRT --> VL is undetectable per patient report. # HTN --> Resume home medication # DVT and GI ppx The time the note is entered does not reflect the time the patient was examined. I greatly appreciate the consultation. Subjective Constitutional: Denies: no symptoms, chills, fever, malaise, weakness, other HEENT: Denies: no symptoms, eye pain, blurred vision, tearing, double vision, ear pain, ear discharge, nose pain, nose congestion, throat pain, throat swelling, mouth pain, mouth swelling, other Cardiovascular: Denies: no symptoms, chest pain, edema, irregular heart rate, lightheadedness, palpitations, syncope, other Respiratory: Denies: no symptoms, cough, shortness of breath, SOB with excertion, SOB at rest, sputum, wheezing, other Gastrointestinal/Abdominal: Denies: no symptoms, abdomen distended, abdominal pain, black stools, tarry stools, blood in stool, constipated, diarrhea, difficulty swallowing, nausea, poor appetite, poor fluid intake, rectal bleeding , vomiting, other Genitourinary: Denies: no symptoms, burning, discharge, frequency, flank pain, hematuria, incontinence, pain, urgency, other Neurologic/Psychiatric: Denies: no symptoms, anxiety, depressed, emotional problems, headache, numbness, paresthesia, pre-existing deficit, seizure, tingling, tremors, weakness, other Endocrine: Denies: no symptoms, excessive sweating, flushing, intolerance to cold, intolerance to heat, increased hunger, increased thirst, increased urine, unexplained weight gain, unexplained weight loss, other Allergies: Coded Allergies: No Known Allergies (Unverified , 02/05/13) Subjective Subjective 02/11: Hgb yesterday was 7.6, s/p 1 unit prbc. Current hgb at 8.2. Pt attempted to pull out tubes per nursing team, soft restraints applied. 02/13: Pt in ICU and intubated. Pt currently sedated. Current hgb 9.4. 02/14: Pt remains in icu, sedated. Hgb stable. 02/15: Remains in icu, lethargic. No acute events. Hgb stable. 02/16: Remains in icu. CXR today shows worsening CHF/pulmonary edema. Pt wake and sedation decrease for weaning. 02/18: Remains in icu. Pt on vent. CXR today shows pulmonary edema, persistent small left pleural effusion. 02/19: Remains in the icu, now extubated, seen by pulm, labs reviewed 02/20: Remains in ICU, Pt intubated, CXR today shows Congestive heart failure with interval worsening 02/21: reintubated, tolerating vent well, seen by pulm/cc 02/23: pt remains on fently gtt, prn ativan, currenlty intubated on vent, no further bleeding, d/w RN> 02/24:failed weaning, fentanyl drip decreased. 02/25:pt seen in am,sedated. 02/27: remains intubated, may need trach, nobleeding today 02/28: tolerated cpap, now back on vent, no bleeding off asa/lovenox 03/01: fentanyl gtt is now off, remains in icu, dw rn 03/02: to get trach today, at approx 12, no events, labs somewhat lower 03/03: still confused on exam, d/w rn, no events, on fentanyl gtt 03/05: to get peg tomorrow, no f/c 03/06: received peg yesterday, tolerating tfs well, no f/c, labs reviewed 03/07: remains in icu, trach collar, dw pulm, no f/c 03/08: seen by neuro, no bleeding, no f/c, seen by pulm/cc, neuro Objective Objective Current Medications Medications (Trade) Dose Ordered Sig/Marquis Route PRN Reason Start Time Stop Time Status Last Admin Dose Admin Acetaminophen (Tylenol) 650 mg Q4H PRN ORAL Mild Pain (Pain Scale 1-3) 02/07/19 11:15 03/08/19 17:29 03/07/19 07:50 Acetaminophen/ Butalbital/ Caffeine (Fioricet) 1 tab Q8H PRN ORAL For Headache 02/08/19 17:15 03/10/19 17:14 Albuterol/ Ipratropium (Albuterol/ Ipratropium) 3 ml Q6HRT HHN 03/03/19 19:00 03/08/19 18:59 03/08/19 07:02 Amlodipine Besylate (Norvasc) 10 mg DAILY NG 02/15/19 09:00 03/14/19 15:59 03/08/19 09:29 Artificial Tears (Lacri-Lube) 1 applic AC+HS BOTH EYES 02/18/19 06:30 03/20/19 06:29 03/08/19 05:35 Bisacodyl (Dulcolax) 5 mg DAILYPRN PRN ORAL Constipation 02/08/19 17:15 03/10/19 17:14 02/25/19 12:45 Chlorhexidine Gluconate (Jessy-Hex 2%) 1 applic DAILY@2000 TOPIC 02/25/19 20:00 03/27/19 19:59 03/07/19 20:40 Clonidine HCl (Catapres tab) 0.2 mg EVERY 8 HOURS NG 03/02/19 22:00 03/19/19 13:59 03/08/19 05:33 Dextrose (Dextrose 50%) 25 ml Q30M PRN IV Hypoglycemia 03/01/19 07:15 03/31/19 07:14 Dextrose (Dextrose 50%) 50 ml Q30M PRN IV Hypoglycemia 03/01/19 07:15 03/31/19 07:14 03/05/19 05:32 Docusate Sodium (Colace) 100 mg TID GT 02/12/19 18:00 03/12/19 08:59 03/07/19 09:26 Fentanyl Citrate 2500 mcg/Sodium Chloride 250 ml @ 0 mls/hr Q24H IV 03/03/19 00:00 03/10/19 00:00 03/07/19 11:22 Fluconazole/ Sodium Chloride 100 ml @ 100 mls/hr Q24H IV 03/03/19 18:00 03/10/19 17:59 03/07/19 17:44 Furosemide (Lasix) 20 mg DAILY IV 03/06/19 09:00 03/31/19 08:59 03/08/19 09:26 Heparin Sodium (Porcine) (Heparin 5000 units/ml) 5,000 units EVERY 12 HOURS SUBQ 03/06/19 21:00 04/05/19 20:59 03/08/19 09:40 Hydralazine HCl (Apresoline) 10 mg Q4H PRN IV bp over 165 syst 02/17/19 10:15 03/19/19 10:14 02/19/19 14:45 Hydralazine HCl (Apresoline) 50 mg Q8HR NG 02/22/19 14:00 03/21/19 21:59 03/08/19 05:33 Insulin Aspart (NovoLOG) EVERY 6 HOURS SUBQ 02/26/19 12:00 03/28/19 11:59 03/08/19 05:34 Insulin Detemir (Levemir) 10 units Q12HR SUBQ 03/05/19 09:00 04/01/19 20:59 03/08/19 09:41 Lorazepam (Ativan 2mg/ml 1ml) 2 mg Q2H PRN IV For Anxiety 03/06/19 19:45 03/13/19 19:44 03/08/19 08:42 Meropenem 1 gm/ Sodium Chloride 55 ml @ 110 mls/hr Q12HR IVPB 03/06/19 21:00 03/11/19 20:59 03/08/19 09:23 Metoclopramide HCl (Reglan) 5 mg Q8H IVP 02/26/19 09:00 03/28/19 08:59 03/08/19 09:26 Metolazone (Zaroxolyn) 10 mg DAILY NG 02/19/19 10:00 03/21/19 09:59 03/08/19 09:27 Metoprolol Tartrate (Lopressor) 100 mg Q12HR ORAL 02/22/19 21:00 03/08/19 20:59 03/08/19 09:28 Midazolam HCl (Versed 2mg/2ml vial) 1 mg Q2H PRN IVP Agitation 02/13/19 08:45 03/15/19 08:44 03/08/19 03:30 Neomycin/ Polymyxin/ Dexamethasone (Maxitrol Opth Oint) 1 applic BEDTIME BOTH EYES 02/18/19 21:00 03/20/19 20:59 03/07/19 20:41 Nitroglycerin (Ntg) 0.4 mg Q5M PRN SL Prn Chest Pain 02/07/19 11:00 03/08/19 17:29 02/08/19 07:42 Ondansetron HCl (Zofran) 4 mg Q6H PRN IVP Nausea & Vomiting 02/07/19 11:15 03/08/19 11:14 02/09/19 00:58 Pantoprazole (Protonix) 40 mg DAILY IVP 02/26/19 09:00 03/24/19 20:59 03/08/19 09:26 Patient Own Medication (Patient's Own Med) 1 ea BID ORAL 03/08/19 09:00 04/07/19 08:59 03/08/19 09:25 Patient Own Medication (Patient's Own Med) 1 ea DAILY ORAL 03/07/19 09:00 04/04/19 11:59 03/08/19 09:25 Patient Own Medication (Patient's Own Med) 2 ea DAILY ORAL 02/08/19 09:00 03/10/19 08:59 03/08/19 09:25 Polyethylene Glycol (Miralax) 17 gm BEDTIME ORAL 02/08/19 21:00 03/10/19 20:59 03/07/19 20:42 Sennosides (Senokot) 8.6 mg DAILY ORAL 02/13/19 12:00 03/15/19 11:59 03/08/19 09:28 Trimethoprim/ Sulfamethoxazole (Bactrim-DS) 1 tab DAILY ORAL 03/04/19 09:00 03/11/19 08:59 03/08/19 09:28 Vancomycin HCl (Vanco rx to dose) 1 ea DAILY PRN MISC Per rx protocol 03/03/19 11:00 04/02/19 10:59 Vancomycin HCl/ Dextrose 275 ml @ 183.333 mls/hr Q24H IVPB 03/07/19 09:00 03/12/19 08:59 03/08/19 09:24 Last 24 Hour Vital Signs Date Time Temp Pulse Resp B/P (MAP) Pulse Ox O2 Delivery O2 Flow Rate FiO2 03/08/19 09:29 84 147/63 03/08/19 09:28 84 147/63 03/08/19 08:00 Mechanical Ventilator Mechanical Ventilator 03/08/19 08:00 79 26 140/51 (80) 99 03/08/19 07:09 74 24 100 Trach Collar 12.0 40 03/08/19 07:05 77 24 100 T-Piece 12.0 40 03/08/19 07:04 78 24 100 Trach Collar 12.0 40 03/08/19 07:03 100 T-Piece 12.0 40 03/08/19 07:00 78 30 142/51 (81) 100 03/08/19 06:00 74 28 131/50 (77) 100 03/08/19 05:33 139/52 03/08/19 05:33 139/52 03/08/19 05:00 78 24 139/52 (81) 100 03/08/19 04:00 77 03/08/19 04:00 Mechanical Ventilator Mechanical Ventilator 03/08/19 04:00 98.2 77 23 143/53 (83) 98 03/08/19 03:00 91 28 149/59 (89) 03/08/19 02:00 77 23 133/54 (80) 99 03/08/19 01:00 76 27 120/53 (75) 99 03/08/19 00:58 77 30 100 Trach Collar 12.0 40 03/08/19 00:48 100 Trach Collar 12.0 40 03/08/19 00:48 77 26 100 Trach Collar 12.0 40 03/08/19 00:04 Mechanical Ventilator Mechanical Ventilator 03/08/19 00:00 98.2 76 23 136/54 (81) 99 03/08/19 00:00 76 03/07/19 23:00 76 27 121/54 (76) 100 03/07/19 22:00 78 21 139/53 (81) 98 03/07/19 21:54 135/55 03/07/19 21:54 135/55 03/07/19 21:00 97 24 143/71 (95) 99 03/07/19 20:42 84 128/52 03/07/19 20:00 84 03/07/19 20:00 Mechanical Ventilator Mechanical Ventilator 03/07/19 20:00 99.2 82 24 133/71 (91) 98 03/07/19 19:12 83 24 100 Trach Collar 12.0 40 03/07/19 19:02 100 Trach Collar 12.0 40 03/07/19 19:02 82 22 100 Trach Collar 12.0 40 03/07/19 19:02 82 22 100 Trach Collar 12.0 40 03/07/19 19:00 82 23 122/49 (73) 98 03/07/19 18:30 103 21 158/64 (95) 93 03/07/19 18:00 T-piece 03/07/19 18:00 88 23 146/51 (82) 98 03/07/19 17:30 84 23 141/63 (89) 100 03/07/19 17:30 T-piece 03/07/19 17:00 T-piece 03/07/19 17:00 80 24 128/55 (79) 100 03/07/19 16:34 T-piece 03/07/19 16:00 99.5 80 18 131/50 (77) 100 03/07/19 16:00 40 03/07/19 16:00 T-piece 03/07/19 16:00 Mechanical Ventilator Mechanical Ventilator 03/07/19 16:00 78 03/07/19 15:30 T-piece 03/07/19 15:30 79 18 114/53 (73) 83 03/07/19 15:05 74 20 40 03/07/19 15:00 T-piece 03/07/19 15:00 77 16 130/64 (86) 100 03/07/19 14:30 75 19 133/57 (82) 100 03/07/19 14:30 T-piece 03/07/19 14:00 78 16 140/65 (90) 100 03/07/19 14:00 T-piece 03/07/19 13:42 127/63 03/07/19 13:41 T-piece 03/07/19 13:41 127/63 03/07/19 13:30 T-piece 03/07/19 13:14 74 20 100 Mechanical Ventilator 40 03/07/19 13:06 75 20 100 Trach Collar 12.0 40 03/07/19 13:06 76 20 40 03/07/19 13:00 74 20 134/54 (80) 100 03/07/19 13:00 Trach Collar 03/07/19 12:30 74 16 137/54 (81) 100 03/07/19 12:00 72 03/07/19 12:00 Mechanical Ventilator Mechanical Ventilator 03/07/19 12:00 98.9 74 17 141/100 (114) 100 03/07/19 11:30 72 17 134/56 (82) 100 03/07/19 11:22 Trach Collar 40 03/07/19 11:01 75 20 40 03/07/19 11:00 73 20 130/52 (78) 99 03/07/19 11:00 T-piece 03/07/19 10:30 T-piece 03/07/19 10:00 T-piece 03/07/19 10:00 80 20 129/56 (80) 100 03/07/19 09:29 82 131/53 03/07/19 09:29 81 131/53 03/07/19 09:23 T-piece 03/07/19 09:02 40 03/07/19 09:00 87 18 113/46 (68) 100 03/07/19 09:00 T-piece 03/07/19 09:00 82 20 40 03/07/19 08:30 85 20 103/43 (63) 100 03/07/19 08:30 Mechanical Ventilator 03/07/19 08:00 100.0 91 17 144/57 (86) 100 03/07/19 08:00 94 03/07/19 08:00 Mechanical Ventilator 03/07/19 08:00 Mechanical Ventilator Mechanical Ventilator 03/07/19 08:00 40 03/07/19 07:30 92 16 136/74 (94) 99 03/07/19 07:30 Mechanical Ventilator 03/07/19 07:20 40 03/07/19 07:17 80 20 100 Mechanical Ventilator 40 03/07/19 07:05 80 20 100 Mechanical Ventilator 40 03/07/19 07:00 74 25 121/55 (77) 100 03/07/19 07:00 80 24 40 40 03/07/19 07:00 Mechanical Ventilator 03/07/19 06:30 74 20 128/54 (78) 100 03/07/19 06:00 73 24 153/56 (88) 100 03/07/19 06:00 Mechanical Ventilator 40 03/07/19 05:45 77 21 136/58 (84) 100 03/07/19 05:42 136/56 03/07/19 05:42 136/56 03/07/19 05:30 71 22 136/56 (82) 100 03/07/19 05:15 71 24 132/53 (79) 100 03/07/19 05:02 71 25 40 03/07/19 05:00 21 Mechanical Ventilator 40 03/07/19 05:00 74 19 127/85 (99) 100 03/07/19 04:45 71 22 137/55 (82) 100 03/07/19 04:30 72 20 132/58 (82) 100 03/07/19 04:00 40 03/07/19 04:00 Mechanical Ventilator Mechanical Ventilator 03/07/19 04:00 22 Mechanical Ventilator 40 03/07/19 04:00 98.9 75 22 117/53 (74) 99 03/07/19 04:00 77 03/07/19 03:30 75 22 152/59 (90) 100 03/07/19 03:05 70 24 40 03/07/19 03:00 69 24 136/54 (81) 99 03/07/19 03:00 23 Mechanical Ventilator 40 03/07/19 02:30 70 24 129/48 (75) 100 03/07/19 02:00 71 24 129/47 (74) 100 03/07/19 02:00 23 Mechanical Ventilator 40 03/07/19 01:30 73 23 128/53 (78) 100 03/07/19 01:13 71 24 100 Mechanical Ventilator 40 03/07/19 01:03 71 24 100 Mechanical Ventilator 40 03/07/19 01:03 71 24 40 03/07/19 01:00 22 Mechanical Ventilator 40 03/07/19 01:00 71 23 134/54 (80) 100 03/07/19 00:30 68 24 128/56 (80) 98 03/07/19 00:00 Mechanical Ventilator Mechanical Ventilator 03/07/19 00:00 68 03/07/19 00:00 99.0 69 24 129/52 (77) 100 03/07/19 00:00 23 Mechanical Ventilator 40 03/07/19 00:00 40 03/06/19 23:30 68 24 131/48 (75) 99 03/06/19 23:00 22 Mechanical Ventilator 40 03/06/19 23:00 68 24 132/47 (75) 100 03/06/19 22:52 98.9 03/06/19 22:46 69 24 40 03/06/19 22:30 69 24 130/46 (74) 99 03/06/19 22:16 22 Mechanical Ventilator 40 03/06/19 22:02 128/47 03/06/19 22:02 128/47 03/06/19 22:00 69 23 131/52 (78) 100 03/06/19 22:00 23 Mechanical Ventilator 40 03/06/19 21:45 70 24 128/47 (74) 100 03/06/19 21:30 22 Mechanical Ventilator 40 03/06/19 21:30 68 24 132/48 (76) 100 03/06/19 21:15 23 Mechanical Ventilator 40 03/06/19 21:15 70 24 138/52 (80) 100 03/06/19 21:00 72 23 136/50 (78) 100 03/06/19 21:00 23 Mechanical Ventilator 40 03/06/19 20:50 72 24 40 03/06/19 20:32 71 123/47 03/06/19 20:30 70 24 115/45 (68) 98 03/06/19 20:00 98.9 72 22 123/47 (72) 98 03/06/19 20:00 22 Mechanical Ventilator 40 03/06/19 20:00 Mechanical Ventilator Mechanical Ventilator 03/06/19 20:00 74 03/06/19 20:00 40 03/06/19 19:30 79 25 132/58 (82) 100 03/06/19 19:13 79 26 100 Mechanical Ventilator 40 03/06/19 19:03 75 24 100 Mechanical Ventilator 40 03/06/19 19:03 75 24 40 03/06/19 19:00 24 Mechanical Ventilator 40 03/06/19 19:00 83 19 131/53 (79) 99 03/06/19 18:30 68 22 131/51 (77) 99 03/06/19 18:01 24 Mechanical Ventilator 40 03/06/19 18:00 69 24 128/49 (75) 100 03/06/19 17:00 24 Mechanical Ventilator 40 03/06/19 17:00 81 23 150/67 (94) 99 03/06/19 16:55 80 24 40 03/06/19 16:30 83 16 147/63 (91) 100 03/06/19 16:00 40 03/06/19 16:00 24 Mechanical Ventilator 24 03/06/19 16:00 78 03/06/19 16:00 99.0 78 17 127/61 (83) 99 03/06/19 16:00 Mechanical Ventilator Mechanical Ventilator 03/06/19 15:30 78 17 120/52 (74) 98 03/06/19 15:00 81 22 119/45 (69) 98 03/06/19 15:00 24 Mechanical Ventilator 40 03/06/19 15:00 24 Mechanical Ventilator 40 03/06/19 14:45 82 16 40 03/06/19 14:30 83 19 131/53 (79) 99 03/06/19 14:00 86 18 126/57 (80) 97 03/06/19 14:00 24 Mechanical Ventilator 40 03/06/19 13:30 136/116 (123) 91 03/06/19 13:14 136/53 03/06/19 13:13 136/53 03/06/19 13:00 24 Mechanical Ventilator 40 03/06/19 13:00 88 22 148/65 (92) 96 03/06/19 12:46 101 27 99 Mechanical Ventilator 40 03/06/19 12:44 96 29 40 03/06/19 12:40 100 33 99 Mechanical Ventilator 40 03/06/19 12:30 85 23 158/110 (126) 99 03/06/19 12:00 Mechanical Ventilator Mechanical Ventilator 03/06/19 12:00 98.8 88 23 159/69 (99) 97 03/06/19 12:00 24 Mechanical Ventilator 40 03/06/19 12:00 93 03/06/19 12:00 40 03/06/19 11:30 84 21 152/64 (93) 100 03/06/19 11:00 87 19 143/62 (89) 99 03/06/19 11:00 24 Mechanical Ventilator 40 03/06/19 10:37 86 30 40 03/06/19 10:30 89 25 134/53 (80) 99 03/06/19 10:00 24 Mechanical Ventilator 40 03/06/19 10:00 93 17 148/55 (86) 98 Intake and Output 03/07/19 03/08/19 19:00 07:00 Intake Total 1482.939 ml 424 ml Output Total 1255 ml 1280 ml Balance 227.939 ml -856 ml IV Total 846.939 ml 55 ml Tube Feeding 516 ml 129 ml Other 120 ml 240 ml Output Urine Total 845 ml 1180 ml Stool Total 410 ml 100 ml Labs Test 03/06/19 05:00 03/06/19 08:00 03/07/19 04:20 03/07/19 07:34 White Blood Count 2.4 K/UL (4.8-10.8) 2.8 K/UL (4.8-10.8) 2.7 K/UL (4.8-10.8) Red Blood Count 2.56 M/UL (4.70-6.10) 2.70 M/UL (4.70-6.10) 2.88 M/UL (4.70-6.10) Hemoglobin 7.4 G/DL (14.2-18.0) 7.8 G/DL (14.2-18.0) 8.3 G/DL (14.2-18.0) Hematocrit 22.3 % (42.0-52.0) 23.8 % (42.0-52.0) 25.0 % (42.0-52.0) Mean Corpuscular Volume 87 FL (80-99) 88 FL (80-99) 87 FL (80-99) Mean Corpuscular Hemoglobin 29.0 PG (27.0-31.0) 28.9 PG (27.0-31.0) 28.7 PG (27.0-31.0) Mean Corpuscular Hemoglobin Concent 33.2 G/DL (32.0-36.0) 32.8 G/DL (32.0-36.0) 33.1 G/DL (32.0-36.0) Red Cell Distribution Width 16.8 % (11.6-14.8) 16.4 % (11.6-14.8) 16.2 % (11.6-14.8) Platelet Count 86 K/UL (150-450) 85 K/UL (150-450) 94 K/UL (150-450) Mean Platelet Volume 6.5 FL (6.5-10.1) 6.3 FL (6.5-10.1) 6.3 FL (6.5-10.1) Neutrophils (%) (Auto) % (45.0-75.0) % (45.0-75.0) % (45.0-75.0) Lymphocytes (%) (Auto) % (20.0-45.0) % (20.0-45.0) % (20.0-45.0) Monocytes (%) (Auto) % (1.0-10.0) % (1.0-10.0) % (1.0-10.0) Eosinophils (%) (Auto) % (0.0-3.0) % (0.0-3.0) % (0.0-3.0) Basophils (%) (Auto) % (0.0-2.0) % (0.0-2.0) % (0.0-2.0) Differential Total Cells Counted 100 100 100 Neutrophils % (Manual) 49 % (45-75) 49 % (45-75) 42 % (45-75) Lymphocytes % (Manual) 43 % (20-45) 42 % (20-45) 42 % (20-45) Monocytes % (Manual) 6 % (1-10) 7 % (1-10) 11 % (1-10) Eosinophils % (Manual) 2 % (0-3) 2 % (0-3) 5 % (0-3) Basophils % (Manual) 0 % (0-2) 0 % (0-2) 0 % (0-2) Band Neutrophils 0 % (0-8) 0 % (0-8) 0 % (0-8) Platelet Estimate Decreased Decreased Decreased Platelet Morphology Normal Normal Normal Anisocytosis 1+ 1+ 1+ Sodium Level 136 MMOL/L (136-145) 136 MMOL/L (136-145) Potassium Level 3.4 MMOL/L (3.5-5.1) 3.6 MMOL/L (3.5-5.1) Chloride Level 99 MMOL/L (98-107) 100 MMOL/L (98-107) Carbon Dioxide Level 31 MMOL/L (21-32) 31 MMOL/L (21-32) Anion Gap 6 mmol/L (5-15) 5 mmol/L (5-15) Blood Urea Nitrogen 28 mg/dL (7-18) 25 mg/dL (7-18) Creatinine 1.7 MG/DL (0.55-1.30) 1.8 MG/DL (0.55-1.30) Estimat Glomerular Filtration Rate 41.5 mL/min (>60) 38.8 mL/min (>60) Glucose Level 183 MG/DL (74-106) 148 MG/DL (74-106) Calcium Level 8.2 MG/DL (8.5-10.1) 8.4 MG/DL (8.5-10.1) Total Bilirubin 0.6 MG/DL (0.2-1.0) 0.5 MG/DL (0.2-1.0) Aspartate Amino Transf (AST/SGOT) 42 U/L (15-37) 41 U/L (15-37) Alanine Aminotransferase (ALT/SGPT) 55 U/L (12-78) 50 U/L (12-78) Alkaline Phosphatase 125 U/L (46-116) 137 U/L (46-116) Total Protein 4.8 G/DL (6.4-8.2) 5.2 G/DL (6.4-8.2) Albumin 1.9 G/DL (3.4-5.0) 2.0 G/DL (3.4-5.0) Globulin 2.9 g/dL 3.2 g/dL Albumin/Globulin Ratio 0.7 (1.0-2.7) 0.6 (1.0-2.7) Phosphorus Level 2.5 MG/DL (2.5-4.9) 2.1 MG/DL (2.5-4.9) Magnesium Level 1.7 MG/DL (1.8-2.4) 1.6 MG/DL (1.8-2.4) Vancomycin Level Trough 8.1 ug/mL (5.0-12.0) Test 03/08/19 04:00 White Blood Count 2.5 K/UL (4.8-10.8) Red Blood Count 2.63 M/UL (4.70-6.10) Hemoglobin 7.6 G/DL (14.2-18.0) Hematocrit 22.9 % (42.0-52.0) Mean Corpuscular Volume 87 FL (80-99) Mean Corpuscular Hemoglobin 29.0 PG (27.0-31.0) Mean Corpuscular Hemoglobin Concent 33.2 G/DL (32.0-36.0) Red Cell Distribution Width 15.7 % (11.6-14.8) Platelet Count 93 K/UL (150-450) Mean Platelet Volume 6.4 FL (6.5-10.1) Neutrophils (%) (Auto) % (45.0-75.0) Lymphocytes (%) (Auto) % (20.0-45.0) Monocytes (%) (Auto) % (1.0-10.0) Eosinophils (%) (Auto) % (0.0-3.0) Basophils (%) (Auto) % (0.0-2.0) Differential Total Cells Counted 100 Neutrophils % (Manual) 50 % (45-75) Lymphocytes % (Manual) 34 % (20-45) Monocytes % (Manual) 13 % (1-10) Eosinophils % (Manual) 2 % (0-3) Basophils % (Manual) 1 % (0-2) Band Neutrophils 0 % (0-8) Platelet Estimate Decreased Platelet Morphology Normal Hypochromasia 3+ Anisocytosis 1+ Spherocytes 2+ Sodium Level 136 MMOL/L (136-145) Potassium Level 3.9 MMOL/L (3.5-5.1) Chloride Level 100 MMOL/L (98-107) Carbon Dioxide Level 32 MMOL/L (21-32) Anion Gap 4 mmol/L (5-15) Blood Urea Nitrogen 24 mg/dL (7-18) Creatinine 1.6 MG/DL (0.55-1.30) Estimat Glomerular Filtration Rate 44.5 mL/min (>60) Glucose Level 156 MG/DL (74-106) Calcium Level 8.4 MG/DL (8.5-10.1) Phosphorus Level 2.8 MG/DL (2.5-4.9) Magnesium Level 2.0 MG/DL (1.8-2.4) Total Bilirubin 0.5 MG/DL (0.2-1.0) Aspartate Amino Transf (AST/SGOT) 38 U/L (15-37) Alanine Aminotransferase (ALT/SGPT) 45 U/L (12-78) Alkaline Phosphatase 144 U/L (46-116) Total Protein 5.0 G/DL (6.4-8.2) Albumin 2.0 G/DL (3.4-5.0) Globulin 3.0 g/dL Albumin/Globulin Ratio 0.7 (1.0-2.7) Height (Feet): 6 Height (Inches): 0.00 Weight (Pounds): 254 Objective PHYSICAL EXAMINATION: GENERAL: NAD VITAL SIGNS: Have been reviewed. HEAD AND NECK: Shows no JVD. NG+, trach ++++ vent+ LUNGS: Coarse rhonchi. CARDIOVASCULAR: Shows regular S1 and S2 with no gallop or murmur. ABDOMEN: Soft. ++ peg EXTREMITIES: No pitting edema. Chan Hernandez MD Mar 08, 2019 09:46
--- NOTE | 2019-03-08 10:04 | NUR ---
NURSE NOTES: pt remains agitated kicking legs in air and at staff, pulling at restraints, sliding down in bed. versed given ivp. will continue to monitor pt.
--- NOTE | 2019-03-08 11:34 | Pulmonolgy Critical Care Note ---
Critical Care - Asmt/Plan Problems: (1) Endotracheally intubated (2) Acute hypoxemic respiratory failure (3) Pneumonia (4) NSTEMI (non-ST elevated myocardial infarction) (5) AIDS (6) HIV disease (7) Hypertension (8) MDD (major depressive disorder), recurrent episode, moderate (9) Anemia (10) CKD (chronic kidney disease) (11) History of stroke (12) Diabetes (13) Anxiety (14) Malignant hypertension (15) Occult blood positive stool Assessment/Plan: VDRF, extubated 02/19, re-intubated 02/20, trach 03/02, trach collar 03/07 S/P GT 03/05 Hemoptysis, hematemesis ARDS Acute respiratory failure B pulmonary infiltrates, ? multilobar CAP vs atypical infection vs other ? PJP AIDS (CD4 191) NSTEMI H/O prior CVA HTN HL DM with uncontrolled BS ISH on CKD Anemia, FOBT + PLAN: TC as able, return to vent if fatigues RTC and PRN HHN's Continue Abx & flucon per ID Off steroids Monitor volumes and renal function, cautious diuresis as able F/U cards recs: will need further ischemia eval/cath once stabilized DVT Px: Hep SQ Monitor for bleeding, F/U GI recs, transfuse PRN Hb < 7 F/U ENDO recs TF's FC, continue to discuss GOC Monitor MS, start Seroquel 26 BID + PRN Ativan, check ECG for CTc prior to starting Seroquel D/W RN and RT @ bedside CCT 35 Critical Care - Objective Last 24 Hour Vital Signs Date Time Temp Pulse Resp B/P (MAP) Pulse Ox O2 Delivery O2 Flow Rate FiO2 03/08/19 10:00 81 27 130/52 (78) 99 03/08/19 09:29 84 147/63 03/08/19 09:28 84 147/63 03/08/19 09:00 100.2 86 26 147/63 (91) 100 03/08/19 08:00 Mechanical Ventilator Mechanical Ventilator 03/08/19 08:00 84 03/08/19 08:00 79 26 140/51 (80) 99 03/08/19 07:09 74 24 100 Trach Collar 12.0 40 03/08/19 07:05 77 24 100 T-Piece 12.0 40 03/08/19 07:04 78 24 100 Trach Collar 12.0 40 03/08/19 07:03 100 T-Piece 12.0 40 03/08/19 07:00 78 30 142/51 (81) 100 03/08/19 06:00 74 28 131/50 (77) 100 03/08/19 05:33 139/52 03/08/19 05:33 139/52 03/08/19 05:00 78 24 139/52 (81) 100 03/08/19 04:00 77 03/08/19 04:00 Mechanical Ventilator Mechanical Ventilator 03/08/19 04:00 98.2 77 23 143/53 (83) 98 03/08/19 03:00 91 28 149/59 (89) 03/08/19 02:00 77 23 133/54 (80) 99 03/08/19 01:00 76 27 120/53 (75) 99 03/08/19 00:58 77 30 100 Trach Collar 12.0 40 03/08/19 00:48 100 Trach Collar 12.0 40 03/08/19 00:48 77 26 100 Trach Collar 12.0 40 03/08/19 00:04 Mechanical Ventilator Mechanical Ventilator 03/08/19 00:00 98.2 76 23 136/54 (81) 99 03/08/19 00:00 76 03/07/19 23:00 76 27 121/54 (76) 100 03/07/19 22:00 78 21 139/53 (81) 98 03/07/19 21:54 135/55 03/07/19 21:54 135/55 03/07/19 21:00 97 24 143/71 (95) 99 03/07/19 20:42 84 128/52 03/07/19 20:00 84 03/07/19 20:00 Mechanical Ventilator Mechanical Ventilator 03/07/19 20:00 99.2 82 24 133/71 (91) 98 03/07/19 19:12 83 24 100 Trach Collar 12.0 40 03/07/19 19:02 100 Trach Collar 12.0 40 03/07/19 19:02 82 22 100 Trach Collar 12.0 40 03/07/19 19:02 82 22 100 Trach Collar 12.0 40 03/07/19 19:00 82 23 122/49 (73) 98 03/07/19 18:30 103 21 158/64 (95) 93 03/07/19 18:00 T-piece 03/07/19 18:00 88 23 146/51 (82) 98 03/07/19 17:30 84 23 141/63 (89) 100 03/07/19 17:30 T-piece 03/07/19 17:00 T-piece 03/07/19 17:00 80 24 128/55 (79) 100 03/07/19 16:34 T-piece 03/07/19 16:00 99.5 80 18 131/50 (77) 100 03/07/19 16:00 40 03/07/19 16:00 T-piece 03/07/19 16:00 Mechanical Ventilator Mechanical Ventilator 03/07/19 16:00 78 03/07/19 15:30 T-piece 03/07/19 15:30 79 18 114/53 (73) 83 03/07/19 15:05 74 20 40 03/07/19 15:00 T-piece 03/07/19 15:00 77 16 130/64 (86) 100 03/07/19 14:30 75 19 133/57 (82) 100 03/07/19 14:30 T-piece 03/07/19 14:00 78 16 140/65 (90) 100 03/07/19 14:00 T-piece 03/07/19 13:42 127/63 03/07/19 13:41 T-piece 03/07/19 13:41 127/63 03/07/19 13:30 T-piece 03/07/19 13:14 74 20 100 Mechanical Ventilator 40 03/07/19 13:06 75 20 100 Trach Collar 12.0 40 03/07/19 13:06 76 20 40 03/07/19 13:00 74 20 134/54 (80) 100 03/07/19 13:00 Trach Collar 03/07/19 12:30 74 16 137/54 (81) 100 03/07/19 12:00 72 03/07/19 12:00 Mechanical Ventilator Mechanical Ventilator 03/07/19 12:00 98.9 74 17 141/100 (114) 100 Status: awake Condition: improving HEENT: atraumatic, normocephalic Neck: trach Lungs: clear Heart: HR/BP stable Abdomen: soft, non-tender, active bowel sounds Extremities: edema - less Accucheck: 166 Blood Sugars: BS controlled Critical Care - Subjective ROS Limited/Unobtainable: Yes ICU Day: 28 Intubation Day: Trach Interval Events: Remains on TC Off Fent gtt Agitated earlier got Ativan No distress currently Cr better Condition: stable IV Access: PICC EKG Rhythm: Sinus Rhythm FI02: 40 Vent Support Breath Rate: 24 Vent Support Mode: CPAP Vent Tidal Volume: 550 Sputum Amount: Scant PEEP: 5.0 PIP: 30 Secretions: N/A Fluids: SLIV Drips: None Tube Feeding Amount: 43 I&O: Intake and Output 03/07/19 03/08/19 19:00 07:00 Intake Total 1482.939 ml 424 ml Output Total 1255 ml 1280 ml Balance 227.939 ml -856 ml IV Total 846.939 ml 55 ml Tube Feeding 516 ml 129 ml Other 120 ml 240 ml Output Urine Total 845 ml 1180 ml Stool Total 410 ml 100 ml Subjective: No SOB no distress no cough CXR: PVC Labs: Laboratory Tests Test 03/08/19 04:00 White Blood Count 2.5 K/UL (4.8-10.8) L Red Blood Count 2.63 M/UL (4.70-6.10) L Hemoglobin 7.6 G/DL (14.2-18.0) L Hematocrit 22.9 % (42.0-52.0) L Mean Corpuscular Volume 87 FL (80-99) Mean Corpuscular Hemoglobin 29.0 PG (27.0-31.0) Mean Corpuscular Hemoglobin Concent 33.2 G/DL (32.0-36.0) Red Cell Distribution Width 15.7 % (11.6-14.8) H Platelet Count 93 K/UL (150-450) L Mean Platelet Volume 6.4 FL (6.5-10.1) L Neutrophils (%) (Auto) % (45.0-75.0) Lymphocytes (%) (Auto) % (20.0-45.0) Monocytes (%) (Auto) % (1.0-10.0) Eosinophils (%) (Auto) % (0.0-3.0) Basophils (%) (Auto) % (0.0-2.0) Differential Total Cells Counted 100 Neutrophils % (Manual) 50 % (45-75) Lymphocytes % (Manual) 34 % (20-45) Monocytes % (Manual) 13 % (1-10) H Eosinophils % (Manual) 2 % (0-3) Basophils % (Manual) 1 % (0-2) Band Neutrophils 0 % (0-8) Platelet Estimate Decreased L Platelet Morphology Normal Hypochromasia 3+ Anisocytosis 1+ Spherocytes 2+ Sodium Level 136 MMOL/L (136-145) Potassium Level 3.9 MMOL/L (3.5-5.1) Chloride Level 100 MMOL/L (98-107) Carbon Dioxide Level 32 MMOL/L (21-32) Anion Gap 4 mmol/L (5-15) L Blood Urea Nitrogen 24 mg/dL (7-18) H Creatinine 1.6 MG/DL (0.55-1.30) H Estimat Glomerular Filtration Rate 44.5 mL/min (>60) Glucose Level 156 MG/DL (74-106) H Calcium Level 8.4 MG/DL (8.5-10.1) L Phosphorus Level 2.8 MG/DL (2.5-4.9) Magnesium Level 2.0 MG/DL (1.8-2.4) Total Bilirubin 0.5 MG/DL (0.2-1.0) Aspartate Amino Transf (AST/SGOT) 38 U/L (15-37) H Alanine Aminotransferase (ALT/SGPT) 45 U/L (12-78) Alkaline Phosphatase 144 U/L (46-116) H Total Protein 5.0 G/DL (6.4-8.2) L Albumin 2.0 G/DL (3.4-5.0) L Globulin 3.0 g/dL Albumin/Globulin Ratio 0.7 (1.0-2.7) L Brett Meredith MD Mar 08, 2019 11:34
--- NOTE | 2019-03-08 11:48 | NUR ---
NURSE NOTES: MD CANTOR HERE TO SE PT. RECOMMEND HALDOL FOR PT AGITATION IN PLACE OF [facility]. RECEIVED ORDER FOR EKG TO CHECK QT INTERVAL: 414/459 MS. PLACED ORDER FOR SEROQUEL 25MG Q12H
--- NOTE | 2019-03-08 12:14 | GI Progress Note ---
Assessment/Plan Problems: (1) Anemia ICD Codes: D64.9 - Anemia, unspecified SNOMED: 489650862 (2) Anxiety ICD Codes: F41.9 - Anxiety disorder, unspecified SNOMED: 17198767 (3) Anemia ICD Codes: D64.9 - Anemia, unspecified SNOMED: 436692716 (4) Uncontrolled type 2 diabetes mellitus with chronic kidney disease ICD Codes: E11.22 - Type 2 diabetes mellitus with diabetic chronic kidney disease; E11.65 - Type 2 diabetes mellitus with hyperglycemia SNOMED: 77115650, 590029971, 388976095 Status: stable Status Narrative Discussed with Dr. Ricketts. Assessment/Plan 1. History of HIV. 2. Hypertension. 3. Vertigo. 4. History of headaches. 5. History of diabetes. 6. Respiratory failure 7. Dysphagia 8. ileus s/p PEG GTFs per RD GT site care daily/prn prn transfusions ppi electrolyte replacement follow labs The patient was seen and examined at bedside and all new and available data was reviewed in the patients chart. I agree with the above findings, impression and plan. (Patient seen earlier today. Signature stamp does not reflect patient encounter time.). - Kg Ricketts MD Subjective Subjective limited Objective Last 24 Hour Vital Signs Date Time Temp Pulse Resp B/P (MAP) Pulse Ox O2 Delivery O2 Flow Rate FiO2 03/08/19 10:00 81 27 130/52 (78) 99 03/08/19 09:29 84 147/63 03/08/19 09:28 84 147/63 03/08/19 09:00 100.2 86 26 147/63 (91) 100 03/08/19 08:00 Mechanical Ventilator Mechanical Ventilator 03/08/19 08:00 84 03/08/19 08:00 79 26 140/51 (80) 99 03/08/19 07:09 74 24 100 Trach Collar 12.0 40 03/08/19 07:05 77 24 100 T-Piece 12.0 40 03/08/19 07:04 78 24 100 Trach Collar 12.0 40 03/08/19 07:03 100 T-Piece 12.0 40 03/08/19 07:00 78 30 142/51 (81) 100 03/08/19 06:00 74 28 131/50 (77) 100 03/08/19 05:33 139/52 7/18/19 05:33 139/52 03/08/19 05:00 78 24 139/52 (81) 100 03/08/19 04:00 77 03/08/19 04:00 Mechanical Ventilator Mechanical Ventilator 03/08/19 04:00 98.2 77 23 143/53 (83) 98 03/08/19 03:00 91 28 149/59 (89) 03/08/19 02:00 77 23 133/54 (80) 99 03/08/19 01:00 76 27 120/53 (75) 99 03/08/19 00:58 77 30 100 Trach Collar 12.0 40 03/08/19 00:48 100 Trach Collar 12.0 40 03/08/19 00:48 77 26 100 Trach Collar 12.0 40 03/08/19 00:04 Mechanical Ventilator Mechanical Ventilator 03/08/19 00:00 98.2 76 23 136/54 (81) 99 03/08/19 00:00 76 03/07/19 23:00 76 27 121/54 (76) 100 03/07/19 22:00 78 21 139/53 (81) 98 03/07/19 21:54 135/55 03/07/19 21:54 135/55 03/07/19 21:00 97 24 143/71 (95) 99 03/07/19 20:42 84 128/52 03/07/19 20:00 84 03/07/19 20:00 Mechanical Ventilator Mechanical Ventilator 03/07/19 20:00 99.2 82 24 133/71 (91) 98 03/07/19 19:12 83 24 100 Trach Collar 12.0 40 03/07/19 19:02 100 Trach Collar 12.0 40 03/07/19 19:02 82 22 100 Trach Collar 12.0 40 03/07/19 19:02 82 22 100 Trach Collar 12.0 40 03/07/19 19:00 82 23 122/49 (73) 98 03/07/19 18:30 103 21 158/64 (95) 93 03/07/19 18:00 T-piece 03/07/19 18:00 88 23 146/51 (82) 98 03/07/19 17:30 84 23 141/63 (89) 100 03/07/19 17:30 T-piece 03/07/19 17:00 T-piece 03/07/19 17:00 80 24 128/55 (79) 100 03/07/19 16:34 T-piece 03/07/19 16:00 99.5 80 18 131/50 (77) 100 03/07/19 16:00 40 03/07/19 16:00 T-piece 03/07/19 16:00 Mechanical Ventilator Mechanical Ventilator 03/07/19 16:00 78 03/07/19 15:30 T-piece 03/07/19 15:30 79 18 114/53 (73) 83 03/07/19 15:05 74 20 40 03/07/19 15:00 T-piece 03/07/19 15:00 77 16 130/64 (86) 100 03/07/19 14:30 75 19 133/57 (82) 100 03/07/19 14:30 T-piece 03/07/19 14:00 78 16 140/65 (90) 100 03/07/19 14:00 T-piece 03/07/19 13:42 127/63 03/07/19 13:41 T-piece 03/07/19 13:41 127/63 03/07/19 13:30 T-piece 03/07/19 13:14 74 20 100 Mechanical Ventilator 40 03/07/19 13:06 75 20 100 Trach Collar 12.0 40 03/07/19 13:06 76 20 40 03/07/19 13:00 74 20 134/54 (80) 100 03/07/19 13:00 Trach Collar 03/07/19 12:30 74 16 137/54 (81) 100 Intake and Output 03/07/19 03/08/19 19:00 07:00 Intake Total 1482.939 ml 424 ml Output Total 1255 ml 1280 ml Balance 227.939 ml -856 ml IV Total 846.939 ml 55 ml Tube Feeding 516 ml 129 ml Other 120 ml 240 ml Output Urine Total 845 ml 1180 ml Stool Total 410 ml 100 ml Laboratory Tests Test 03/08/19 04:00 White Blood Count 2.5 K/UL (4.8-10.8) L Red Blood Count 2.63 M/UL (4.70-6.10) L Hemoglobin 7.6 G/DL (14.2-18.0) L Hematocrit 22.9 % (42.0-52.0) L Mean Corpuscular Volume 87 FL (80-99) Mean Corpuscular Hemoglobin 29.0 PG (27.0-31.0) Mean Corpuscular Hemoglobin Concent 33.2 G/DL (32.0-36.0) Red Cell Distribution Width 15.7 % (11.6-14.8) H Platelet Count 93 K/UL (150-450) L Mean Platelet Volume 6.4 FL (6.5-10.1) L Neutrophils (%) (Auto) % (45.0-75.0) Lymphocytes (%) (Auto) % (20.0-45.0) Monocytes (%) (Auto) % (1.0-10.0) Eosinophils (%) (Auto) % (0.0-3.0) Basophils (%) (Auto) % (0.0-2.0) Differential Total Cells Counted 100 Neutrophils % (Manual) 50 % (45-75) Lymphocytes % (Manual) 34 % (20-45) Monocytes % (Manual) 13 % (1-10) H Eosinophils % (Manual) 2 % (0-3) Basophils % (Manual) 1 % (0-2) Band Neutrophils 0 % (0-8) Platelet Estimate Decreased L Platelet Morphology Normal Hypochromasia 3+ Anisocytosis 1+ Spherocytes 2+ Sodium Level 136 MMOL/L (136-145) Potassium Level 3.9 MMOL/L (3.5-5.1) Chloride Level 100 MMOL/L (98-107) Carbon Dioxide Level 32 MMOL/L (21-32) Anion Gap 4 mmol/L (5-15) L Blood Urea Nitrogen 24 mg/dL (7-18) H Creatinine 1.6 MG/DL (0.55-1.30) H Estimat Glomerular Filtration Rate 44.5 mL/min (>60) Glucose Level 156 MG/DL (74-106) H Calcium Level 8.4 MG/DL (8.5-10.1) L Phosphorus Level 2.8 MG/DL (2.5-4.9) Magnesium Level 2.0 MG/DL (1.8-2.4) Total Bilirubin 0.5 MG/DL (0.2-1.0) Aspartate Amino Transf (AST/SGOT) 38 U/L (15-37) H Alanine Aminotransferase (ALT/SGPT) 45 U/L (12-78) Alkaline Phosphatase 144 U/L (46-116) H Total Protein 5.0 G/DL (6.4-8.2) L Albumin 2.0 G/DL (3.4-5.0) L Globulin 3.0 g/dL Albumin/Globulin Ratio 0.7 (1.0-2.7) L Height (Feet): 6 Height (Inches): 0.00 Weight (Pounds): 254 General Appearance: no apparent distress Cardiovascular: normal rate Respiratory/Chest: no respiratory distress Abdominal Exam: normal bowel sounds, non tender, soft, GT site Extremities: non-tender Hortencia Zheng NP Mar 08, 2019 12:14
--- NOTE | 2019-03-08 13:24 | NUR ---
NURSE NOTES: Pt resting in bed. Bed bath complete.Tolerates T-piece w/ 30% fiO2. Trach site intact, no bleeding noted. FC patent, draining. Afebrile, BP stable on NSR.
--- NOTE | 2019-03-08 15:00 | NUR ---
NURSE NOTES: Calm, resting in bed, Afebrile; VSS. No distress noted. Restraints soft wrist noted and circulation check and active ROM allowed. pt continues to reach for tubing and trach. hob>30. bed alarm on. will continue to implement plan of care.
--- NOTE | 2019-03-08 15:41 | Nephrology Progress Note ---
Assessment/Plan Problem List: (1) ISH (acute kidney injury) Assessment: Cr lowering (2) HIV (human immunodeficiency virus infection) (3) NSTEMI (non-ST elevated myocardial infarction) Assessment: troponin decreasing (4) Hypoxia (5) Anemia (6) Diabetes Assessment Acute Renal failure- Cr leveling- Urine out put is good Acidosis improved Acute respiratory failure- Require intubation and Mechanical Ventilation- Anemia- Elevated troponin / AL HTN DM HIV Antibody + Plan Trach 03/02 mag and K and Phos supplement as needed adjust BP meds on feeding IV protonix transfusiosn as needed BP med adjustment UA and urine studies Avoid Nephrotoxics as possible Monitor renal parameters keep BP and BS in check Per orders No HD at this time Kidney RADHA noted adjust BP meds add Isordil Subjective ROS Limited/Unobtainable: Yes Objective Objective Last 24 Hour Vital Signs Date Time Temp Pulse Resp B/P (MAP) Pulse Ox O2 Delivery O2 Flow Rate FiO2 03/08/19 15:00 75 34 125/48 (73) 96 03/08/19 14:23 133/47 03/08/19 14:22 133/47 03/08/19 14:00 77 32 133/47 (75) 98 03/08/19 13:02 76 20 99 Trach Collar 8.0 30 03/08/19 13:00 98.8 77 29 132/47 (75) 99 03/08/19 12:46 100 T-Piece 12.0 40 03/08/19 12:46 76 20 100 Trach Collar 12.0 40 03/08/19 12:00 75 26 140/52 (81) 100 03/08/19 12:00 76 03/08/19 12:00 T-piece T-piece 03/08/19 11:00 74 26 134/53 (80) 100 03/08/19 10:00 81 27 130/52 (78) 99 03/08/19 09:29 84 147/63 03/08/19 09:28 84 147/63 03/08/19 09:00 100.2 86 26 147/63 (91) 100 03/08/19 08:00 T-piece T-piece 03/08/19 08:00 84 03/08/19 08:00 79 26 140/51 (80) 99 03/08/19 07:09 74 24 100 Trach Collar 12.0 40 03/08/19 07:05 77 24 100 T-Piece 12.0 40 03/08/19 07:04 78 24 100 Trach Collar 12.0 40 03/08/19 07:03 100 T-Piece 12.0 40 03/08/19 07:00 78 30 142/51 (81) 100 03/08/19 06:00 74 28 131/50 (77) 100 03/08/19 05:33 139/52 03/08/19 05:33 139/52 03/08/19 05:00 78 24 139/52 (81) 100 03/08/19 04:00 77 03/08/19 04:00 Mechanical Ventilator Mechanical Ventilator 03/08/19 04:00 98.2 77 23 143/53 (83) 98 03/08/19 03:00 91 28 149/59 (89) 03/08/19 02:00 77 23 133/54 (80) 99 03/08/19 01:00 76 27 120/53 (75) 99 03/08/19 00:58 77 30 100 Trach Collar 12.0 40 03/08/19 00:48 100 Trach Collar 12.0 40 03/08/19 00:48 77 26 100 Trach Collar 12.0 40 03/08/19 00:04 Mechanical Ventilator Mechanical Ventilator 03/08/19 00:00 98.2 76 23 136/54 (81) 99 03/08/19 00:00 76 03/07/19 23:00 76 27 121/54 (76) 100 03/07/19 22:00 78 21 139/53 (81) 98 03/07/19 21:54 135/55 03/07/19 21:54 135/55 03/07/19 21:00 97 24 143/71 (95) 99 03/07/19 20:42 84 128/52 03/07/19 20:00 84 03/07/19 20:00 Mechanical Ventilator Mechanical Ventilator 03/07/19 20:00 99.2 82 24 133/71 (91) 98 03/07/19 19:12 83 24 100 Trach Collar 12.0 40 03/07/19 19:02 100 Trach Collar 12.0 40 03/07/19 19:02 82 22 100 Trach Collar 12.0 40 03/07/19 19:02 82 22 100 Trach Collar 12.0 40 03/07/19 19:00 82 23 122/49 (73) 98 03/07/19 18:30 103 21 158/64 (95) 93 03/07/19 18:00 T-piece 03/07/19 18:00 88 23 146/51 (82) 98 03/07/19 17:30 84 23 141/63 (89) 100 03/07/19 17:30 T-piece 03/07/19 17:00 T-piece 03/07/19 17:00 80 24 128/55 (79) 100 03/07/19 16:34 T-piece 03/07/19 16:00 99.5 80 18 131/50 (77) 100 03/07/19 16:00 40 03/07/19 16:00 T-piece 03/07/19 16:00 T-piece T-piece 03/07/19 16:00 78 Intake and Output 03/07/19 03/08/19 19:00 07:00 Intake Total 1482.939 ml 467 ml Output Total 1255 ml 1280 ml Balance 227.939 ml -813 ml IV Total 846.939 ml 55 ml Tube Feeding 516 ml 172 ml Other 120 ml 240 ml Output Urine Total 845 ml 1180 ml Stool Total 410 ml 100 ml Laboratory Tests 03/08/19 04:00: White Blood Count 2.5L, Red Blood Count 2.63L, Hemoglobin 7.6L, Hematocrit 22.9L , Mean Corpuscular Volume 87, Mean Corpuscular Hemoglobin 29.0, Mean Corpuscular Hemoglobin Concent 33.2, Red Cell Distribution Width 15.7H, Platelet Count 93L, Mean Platelet Volume 6.4L, Neutrophils (%) (Auto) , Lymphocytes (%) (Auto) , Monocytes (%) (Auto) , Eosinophils (%) (Auto) , Basophils (%) (Auto) , Differential Total Cells Counted 100, Neutrophils % ( Manual) 50, Lymphocytes % (Manual) 34, Monocytes % (Manual) 13H, Eosinophils % ( Manual) 2, Basophils % (Manual) 1, Band Neutrophils 0, Platelet Estimate DecreasedL, Platelet Morphology Normal, Hypochromasia 3+, Anisocytosis 1+, Spherocytes 2+, Sodium Level 136, Potassium Level 3.9, Chloride Level 100, Carbon Dioxide Level 32, Anion Gap 4L, Blood Urea Nitrogen 24H, Creatinine 1.6H , Estimat Glomerular Filtration Rate 44.5, Glucose Level 156H, Calcium Level 8.4L, Phosphorus Level 2.8, Magnesium Level 2.0, Total Bilirubin 0.5, Aspartate Amino Transf (AST/SGOT) 38H, Alanine Aminotransferase (ALT/SGPT) 45, Alkaline Phosphatase 144H, Total Protein 5.0L, Albumin 2.0L, Globulin 3.0, Albumin/ Globulin Ratio 0.7L Height (Feet): 6 Height (Inches): 0.00 Weight (Pounds): 254 General Appearance: no apparent distress Neck: other - trach Cardiovascular: normal rate Respiratory/Chest: decreased breath sounds Abdomen: distended Objective no change Mike Mcdonald MD Mar 08, 2019 15:41
--- NOTE | 2019-03-08 16:02 | Surgery Progress Note ---
Surgery Progress Note Subjective Procedure Performed tracheostomy Symptoms: improved, voiding well Objective Last 24 Hour Vital Signs Date Time Temp Pulse Resp B/P (MAP) Pulse Ox O2 Delivery O2 Flow Rate FiO2 03/08/19 15:00 75 34 125/48 (73) 96 03/08/19 14:23 133/47 03/08/19 14:22 133/47 03/08/19 14:00 77 32 133/47 (75) 98 03/08/19 13:02 76 20 99 Trach Collar 8.0 30 03/08/19 13:00 98.8 77 29 132/47 (75) 99 03/08/19 12:46 100 T-Piece 12.0 40 03/08/19 12:46 76 20 100 Trach Collar 12.0 40 03/08/19 12:00 75 26 140/52 (81) 100 03/08/19 12:00 76 03/08/19 12:00 T-piece T-piece 03/08/19 11:00 74 26 134/53 (80) 100 03/08/19 10:00 81 27 130/52 (78) 99 03/08/19 09:29 84 147/63 03/08/19 09:28 84 147/63 03/08/19 09:00 100.2 86 26 147/63 (91) 100 03/08/19 08:00 T-piece T-piece 03/08/19 08:00 84 03/08/19 08:00 79 26 140/51 (80) 99 03/08/19 07:09 74 24 100 Trach Collar 12.0 40 03/08/19 07:05 77 24 100 T-Piece 12.0 40 03/08/19 07:04 78 24 100 Trach Collar 12.0 40 03/08/19 07:03 100 T-Piece 12.0 40 03/08/19 07:00 78 30 142/51 (81) 100 03/08/19 06:00 74 28 131/50 (77) 100 03/08/19 05:33 139/52 03/08/19 05:33 139/52 03/08/19 05:00 78 24 139/52 (81) 100 03/08/19 04:00 77 03/08/19 04:00 Mechanical Ventilator Mechanical Ventilator 03/08/19 04:00 98.2 77 23 143/53 (83) 98 03/08/19 03:00 91 28 149/59 (89) 03/08/19 02:00 77 23 133/54 (80) 99 03/08/19 01:00 76 27 120/53 (75) 99 03/08/19 00:58 77 30 100 Trach Collar 12.0 40 03/08/19 00:48 100 Trach Collar 12.0 40 03/08/19 00:48 77 26 100 Trach Collar 12.0 40 03/08/19 00:04 Mechanical Ventilator Mechanical Ventilator 03/08/19 00:00 98.2 76 23 136/54 (81) 99 03/08/19 00:00 76 03/07/19 23:00 76 27 121/54 (76) 100 03/07/19 22:00 78 21 139/53 (81) 98 03/07/19 21:54 135/55 03/07/19 21:54 135/55 03/07/19 21:00 97 24 143/71 (95) 99 03/07/19 20:42 84 128/52 03/07/19 20:00 84 03/07/19 20:00 Mechanical Ventilator Mechanical Ventilator 03/07/19 20:00 99.2 82 24 133/71 (91) 98 03/07/19 19:12 83 24 100 Trach Collar 12.0 40 03/07/19 19:02 100 Trach Collar 12.0 40 03/07/19 19:02 82 22 100 Trach Collar 12.0 40 03/07/19 19:02 82 22 100 Trach Collar 12.0 40 03/07/19 19:00 82 23 122/49 (73) 98 03/07/19 18:30 103 21 158/64 (95) 93 03/07/19 18:00 T-piece 03/07/19 18:00 88 23 146/51 (82) 98 03/07/19 17:30 84 23 141/63 (89) 100 03/07/19 17:30 T-piece 03/07/19 17:00 T-piece 03/07/19 17:00 80 24 128/55 (79) 100 03/07/19 16:34 T-piece I&O Intake and Output 03/07/19 03/08/19 19:00 07:00 Intake Total 1482.939 ml 467 ml Output Total 1255 ml 1280 ml Balance 227.939 ml -813 ml IV Total 846.939 ml 55 ml Tube Feeding 516 ml 172 ml Other 120 ml 240 ml Output Urine Total 845 ml 1180 ml Stool Total 410 ml 100 ml Cardiovascular: RSR Respiratory: clear Abdomen: soft, non-tender, present bowel sounds Extremities: edema, no tenderness, no cyanosis Laboratory Tests Test 03/08/19 04:00 White Blood Count 2.5 K/UL (4.8-10.8) L Red Blood Count 2.63 M/UL (4.70-6.10) L Hemoglobin 7.6 G/DL (14.2-18.0) L Hematocrit 22.9 % (42.0-52.0) L Mean Corpuscular Volume 87 FL (80-99) Mean Corpuscular Hemoglobin 29.0 PG (27.0-31.0) Mean Corpuscular Hemoglobin Concent 33.2 G/DL (32.0-36.0) Red Cell Distribution Width 15.7 % (11.6-14.8) H Platelet Count 93 K/UL (150-450) L Mean Platelet Volume 6.4 FL (6.5-10.1) L Neutrophils (%) (Auto) % (45.0-75.0) Lymphocytes (%) (Auto) % (20.0-45.0) Monocytes (%) (Auto) % (1.0-10.0) Eosinophils (%) (Auto) % (0.0-3.0) Basophils (%) (Auto) % (0.0-2.0) Differential Total Cells Counted 100 Neutrophils % (Manual) 50 % (45-75) Lymphocytes % (Manual) 34 % (20-45) Monocytes % (Manual) 13 % (1-10) H Eosinophils % (Manual) 2 % (0-3) Basophils % (Manual) 1 % (0-2) Band Neutrophils 0 % (0-8) Platelet Estimate Decreased L Platelet Morphology Normal Hypochromasia 3+ Anisocytosis 1+ Spherocytes 2+ Sodium Level 136 MMOL/L (136-145) Potassium Level 3.9 MMOL/L (3.5-5.1) Chloride Level 100 MMOL/L (98-107) Carbon Dioxide Level 32 MMOL/L (21-32) Anion Gap 4 mmol/L (5-15) L Blood Urea Nitrogen 24 mg/dL (7-18) H Creatinine 1.6 MG/DL (0.55-1.30) H Estimat Glomerular Filtration Rate 44.5 mL/min (>60) Glucose Level 156 MG/DL (74-106) H Calcium Level 8.4 MG/DL (8.5-10.1) L Phosphorus Level 2.8 MG/DL (2.5-4.9) Magnesium Level 2.0 MG/DL (1.8-2.4) Total Bilirubin 0.5 MG/DL (0.2-1.0) Aspartate Amino Transf (AST/SGOT) 38 U/L (15-37) H Alanine Aminotransferase (ALT/SGPT) 45 U/L (12-78) Alkaline Phosphatase 144 U/L (46-116) H Total Protein 5.0 G/DL (6.4-8.2) L Albumin 2.0 G/DL (3.4-5.0) L Globulin 3.0 g/dL Albumin/Globulin Ratio 0.7 (1.0-2.7) L Plan Problems: (1) Hypoxia Assessment & Plan: Extensive bilateral upper lobe infiltrates likely inflammatory/infectious. Correlate clinically. Tuberculosis is not excludable. Bilateral pleural effusions. Endotracheal tube and nasogastric tube in good position Atherosclerotic vascular disease (2) Respiratory distress Assessment & Plan: off vent s/p trach improving (3) Sepsis Assessment & Plan: Sepsis with tachycardia, leukocytosis - resolved, abnormal labs, respiratory distress on vent Cont IV abx appreciate ICU team care abnormal lft's US noted will cont to follow with recs trend labs Rx as written can start diet soon speech Moiz Rodriguez Mar 08, 2019 16:02
--- NOTE | 2019-03-08 16:46 | Cardiac Electrophysiology PN ---
Assessment/Plan Assessment/Plan 1. Non-ST elevation myocardial infarction with peak troponin of more than 10, down to 3.[address]-T wave abnormalities. Continue Lipitor, Imdur and metoprolol Not a candidate for Cardiac catheterization 2. Hypertension. Metoprolol 100 bid, Isordil 20 q6 , Norvasc 10 daily and hydralazine 50 q 8 hr and Clonidine 0.2 q 8hrs DC Lasix 3. Respiratory failure due to Multilobar Pneumonia. Extubated 02/19/19. Reintubated 02/20/19 S/P Tracheostomy 03/02/19 Off the vent on CPAP 4. Hyperlipidemia. On Lipitor. 5. Human immunodeficiency virus. On anti-retroviral therapy with undetectable viral load. 6. ARF Cr 3 Now Cr 1.6 7. Bleeding from ETT and NG tube. S/P PRBC. Off Aspirin and Lovenox No further bleeding 8. Dysphagia. S/P PEG 03/05/19 CANDELARIO RN Subjective Subjective In ICU off the vent on T piece via Tracheostomy.Agitated. S/p PEG . Objective Last 24 Hour Vital Signs Date Time Temp Pulse Resp B/P (MAP) Pulse Ox O2 Delivery O2 Flow Rate FiO2 03/08/19 15:00 75 34 125/48 (73) 96 03/08/19 14:23 133/47 03/08/19 14:22 133/47 03/08/19 14:00 77 32 133/47 (75) 98 03/08/19 13:02 76 20 99 Trach Collar 8.0 30 03/08/19 13:00 98.8 77 29 132/47 (75) 99 03/08/19 12:46 100 T-Piece 12.0 40 03/08/19 12:46 76 20 100 Trach Collar 12.0 40 03/08/19 12:00 75 26 140/52 (81) 100 03/08/19 12:00 76 03/08/19 12:00 T-piece T-piece 03/08/19 11:00 74 26 134/53 (80) 100 03/08/19 10:00 81 27 130/52 (78) 99 03/08/19 09:29 84 147/63 03/08/19 09:28 84 147/63 03/08/19 09:00 100.2 86 26 147/63 (91) 100 03/08/19 08:00 T-piece T-piece 03/08/19 08:00 84 03/08/19 08:00 79 26 140/51 (80) 99 03/08/19 07:09 74 24 100 Trach Collar 12.0 40 03/08/19 07:05 77 24 100 T-Piece 12.0 40 03/08/19 07:04 78 24 100 Trach Collar 12.0 40 03/08/19 07:03 100 T-Piece 12.0 40 03/08/19 07:00 78 30 142/51 (81) 100 03/08/19 06:00 74 28 131/50 (77) 100 03/08/19 05:33 139/52 03/08/19 05:33 139/52 03/08/19 05:00 78 24 139/52 (81) 100 03/08/19 04:00 77 03/08/19 04:00 Mechanical Ventilator Mechanical Ventilator 03/08/19 04:00 98.2 77 23 143/53 (83) 98 03/08/19 03:00 91 28 149/59 (89) 03/08/19 02:00 77 23 133/54 (80) 99 03/08/19 01:00 76 27 120/53 (75) 99 03/08/19 00:58 77 30 100 Trach Collar 12.0 40 03/08/19 00:48 100 Trach Collar 12.0 40 03/08/19 00:48 77 26 100 Trach Collar 12.0 40 03/08/19 00:04 Mechanical Ventilator Mechanical Ventilator 03/08/19 00:00 98.2 76 23 136/54 (81) 99 03/08/19 00:00 76 03/07/19 23:00 76 27 121/54 (76) 100 03/07/19 22:00 78 21 139/53 (81) 98 03/07/19 21:54 135/55 03/07/19 21:54 135/55 03/07/19 21:00 97 24 143/71 (95) 99 03/07/19 20:42 84 128/52 03/07/19 20:00 84 03/07/19 20:00 Mechanical Ventilator Mechanical Ventilator 03/07/19 20:00 99.2 82 24 133/71 (91) 98 03/07/19 19:12 83 24 100 Trach Collar 12.0 40 03/07/19 19:02 100 Trach Collar 12.0 40 03/07/19 19:02 82 22 100 Trach Collar 12.0 40 03/07/19 19:02 82 22 100 Trach Collar 12.0 40 03/07/19 19:00 82 23 122/49 (73) 98 03/07/19 18:30 103 21 158/64 (95) 93 03/07/19 18:00 T-piece 03/07/19 18:00 88 23 146/51 (82) 98 03/07/19 17:30 84 23 141/63 (89) 100 03/07/19 17:30 T-piece 03/07/19 17:00 T-piece 03/07/19 17:00 80 24 128/55 (79) 100 Intake and Output 03/07/19 03/08/19 19:00 07:00 Intake Total 1482.939 ml 467 ml Output Total 1255 ml 1280 ml Balance 227.939 ml -813 ml IV Total 846.939 ml 55 ml Tube Feeding 516 ml 172 ml Other 120 ml 240 ml Output Urine Total 845 ml 1180 ml Stool Total 410 ml 100 ml Laboratory Tests Test 03/08/19 04:00 White Blood Count 2.5 K/UL (4.8-10.8) L Red Blood Count 2.63 M/UL (4.70-6.10) L Hemoglobin 7.6 G/DL (14.2-18.0) L Hematocrit 22.9 % (42.0-52.0) L Mean Corpuscular Volume 87 FL (80-99) Mean Corpuscular Hemoglobin 29.0 PG (27.0-31.0) Mean Corpuscular Hemoglobin Concent 33.2 G/DL (32.0-36.0) Red Cell Distribution Width 15.7 % (11.6-14.8) H Platelet Count 93 K/UL (150-450) L Mean Platelet Volume 6.4 FL (6.5-10.1) L Neutrophils (%) (Auto) % (45.0-75.0) Lymphocytes (%) (Auto) % (20.0-45.0) Monocytes (%) (Auto) % (1.0-10.0) Eosinophils (%) (Auto) % (0.0-3.0) Basophils (%) (Auto) % (0.0-2.0) Differential Total Cells Counted 100 Neutrophils % (Manual) 50 % (45-75) Lymphocytes % (Manual) 34 % (20-45) Monocytes % (Manual) 13 % (1-10) H Eosinophils % (Manual) 2 % (0-3) Basophils % (Manual) 1 % (0-2) Band Neutrophils 0 % (0-8) Platelet Estimate Decreased L Platelet Morphology Normal Hypochromasia 3+ Anisocytosis 1+ Spherocytes 2+ Sodium Level 136 MMOL/L (136-145) Potassium Level 3.9 MMOL/L (3.5-5.1) Chloride Level 100 MMOL/L (98-107) Carbon Dioxide Level 32 MMOL/L (21-32) Anion Gap 4 mmol/L (5-15) L Blood Urea Nitrogen 24 mg/dL (7-18) H Creatinine 1.6 MG/DL (0.55-1.30) H Estimat Glomerular Filtration Rate 44.5 mL/min (>60) Glucose Level 156 MG/DL (74-106) H Calcium Level 8.4 MG/DL (8.5-10.1) L Phosphorus Level 2.8 MG/DL (2.5-4.9) Magnesium Level 2.0 MG/DL (1.8-2.4) Total Bilirubin 0.5 MG/DL (0.2-1.0) Aspartate Amino Transf (AST/SGOT) 38 U/L (15-37) H Alanine Aminotransferase (ALT/SGPT) 45 U/L (12-78) Alkaline Phosphatase 144 U/L (46-116) H Total Protein 5.0 G/DL (6.4-8.2) L Albumin 2.0 G/DL (3.4-5.0) L Globulin 3.0 g/dL Albumin/Globulin Ratio 0.7 (1.0-2.7) L Objective HEAD AND NECK: No JVD. S/P tracheostomy LUNGS: Coarse rhonchi. CARDIOVASCULAR: Regular S1 and S2 with no gallop or murmur. ABDOMEN: Soft.PEG in place EXTREMITIES: 1 plus pitting edema. Murray Francois MD Mar 08, 2019 16:46
--- NOTE | 2019-03-08 17:00 | NUR ---
NURSE NOTES: MD HERRERA HERE TO SEE PT. NO NEW ORDERS.
--- NOTE | 2019-03-08 17:15 | NUR ---
NURSE NOTES: MD MARCIAL HERE TO SEE PT. WILL PLACE OWN ORDERS.
--- NOTE | 2019-03-08 17:27 | Infectious Diseases Prog Note ---
Assessment/Plan Assessment/Plan A) 1) pneumonia - ? aspiration/hcap, ? CAP, ? pneumocystis pna, ? fungal ( cryptococcus), sepsis, leukocytosis, ? 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, on anti-retroviral treatment 4) rule out TB pna, in isolation - afb smear on bronchoscopy is negative, TB spot negative 5) pmh noted - hypertension, ckd, anemia, dm, cva, tia, migraines 6) allergies - nkda, sh-negative, fh-nc, mar noted 7) d/w RN P) 1) vancomycin, diflucan, meropenem x 5 days - s/p pneumocystis treatment - f/u cultures negative - s/p trach - bactrim pcp prophylaxis 2) leukocytosis better, monitor labs and chest x-ray, no pressors, lgt noted 3) diarrhea but on stool softeners 4) weaning per pulmonary medicine 5) icu supportive care, vent support 6) skin care per protocol 7) anti-retroviral treatment for HIV 8) d/w pharmacy Subjective Constitutional: Reports: other - on vent ; Denies: fever HEENT: Reports: congestion Respiratory: Reports: shortness of breath Cardiovascular: Denies: chest pain Gastrointestinal/Abdominal: Denies: nausea, vomiting, diarrhea Genitourinary: Denies: dysuria Neurologic: Denies: headache Psychiatric: Denies: depression Skin: Denies: rash Hematologic: Denies: bleeding Musculoskeletal: Denies: pain Allergies: Coded Allergies: No Known Allergies (Unverified , 02/05/13) Objective Vital Signs Last 24 Hour Vital Signs Date Time Temp Pulse Resp B/P (MAP) Pulse Ox O2 Delivery O2 Flow Rate FiO2 03/08/19 15:00 75 34 125/48 (73) 96 03/08/19 14:23 133/47 03/08/19 14:22 133/47 03/08/19 14:00 77 32 133/47 (75) 98 03/08/19 13:02 76 20 99 Trach Collar 8.0 30 03/08/19 13:00 98.8 77 29 132/47 (75) 99 03/08/19 12:46 100 T-Piece 12.0 40 03/08/19 12:46 76 20 100 Trach Collar 12.0 40 03/08/19 12:00 75 26 140/52 (81) 100 03/08/19 12:00 76 03/08/19 12:00 T-piece T-piece 03/08/19 11:00 74 26 134/53 (80) 100 03/08/19 10:00 81 27 130/52 (78) 99 03/08/19 09:29 84 147/63 03/08/19 09:28 84 147/63 03/08/19 09:00 100.2 86 26 147/63 (91) 100 03/08/19 08:00 T-piece T-piece 03/08/19 08:00 84 03/08/19 08:00 79 26 140/51 (80) 99 03/08/19 07:09 74 24 100 Trach Collar 12.0 40 03/08/19 07:05 77 24 100 T-Piece 12.0 40 03/08/19 07:04 78 24 100 Trach Collar 12.0 40 03/08/19 07:03 100 T-Piece 12.0 40 03/08/19 07:00 78 30 142/51 (81) 100 03/08/19 06:00 74 28 131/50 (77) 100 03/08/19 05:33 139/52 03/08/19 05:33 139/52 03/08/19 05:00 78 24 139/52 (81) 100 03/08/19 04:00 77 03/08/19 04:00 Mechanical Ventilator Mechanical Ventilator 03/08/19 04:00 98.2 77 23 143/53 (83) 98 03/08/19 03:00 91 28 149/59 (89) 03/08/19 02:00 77 23 133/54 (80) 99 03/08/19 01:00 76 27 120/53 (75) 99 03/08/19 00:58 77 30 100 Trach Collar 12.0 40 03/08/19 00:48 100 Trach Collar 12.0 40 03/08/19 00:48 77 26 100 Trach Collar 12.0 40 03/08/19 00:04 Mechanical Ventilator Mechanical Ventilator 03/08/19 00:00 98.2 76 23 136/54 (81) 99 03/08/19 00:00 76 03/07/19 23:00 76 27 121/54 (76) 100 03/07/19 22:00 78 21 139/53 (81) 98 03/07/19 21:54 135/55 03/07/19 21:54 135/55 03/07/19 21:00 97 24 143/71 (95) 99 03/07/19 20:42 84 128/52 03/07/19 20:00 84 03/07/19 20:00 Mechanical Ventilator Mechanical Ventilator 03/07/19 20:00 99.2 82 24 133/71 (91) 98 03/07/19 19:12 83 24 100 Trach Collar 12.0 40 03/07/19 19:02 100 Trach Collar 12.0 40 03/07/19 19:02 82 22 100 Trach Collar 12.0 40 03/07/19 19:02 82 22 100 Trach Collar 12.0 40 03/07/19 19:00 82 23 122/49 (73) 98 03/07/19 18:30 103 21 158/64 (95) 93 03/07/19 18:00 T-piece 03/07/19 18:00 88 23 146/51 (82) 98 03/07/19 17:30 84 23 141/63 (89) 100 03/07/19 17:30 T-piece Height (Feet): 6 Height (Inches): 0.00 Weight (Pounds): 254 General Appearance: no acute distress HEENT: normocephalic, atraumatic, anicteric, mucous membranes moist, no JVD Respiratory/Chest: crackles/rales, rhonchi - bilaterally Cardiovascular: normal rate, regular rhythm, no gallop/murmur, no JVD Abdomen: normal bowel sounds, soft, non tender, no organomegaly, non distended Genitourinary: other - no Extremities: no cyanosis Skin: no rash Neurologic/Psychiatric: leather sponger II-XII grossly normal, alert, responsive Lymphatic: no neck adenopathy Musculoskeletal: no effusion Objective Chest x-ray - 02/10/19 - COMPARISON: Chest radiograph on 02/09/2019 FINDINGS: Hardware: Endotracheal tube terminates in the region of the mid thoracic trachea. Enteric tube courses past the diaphragm and out of the field of view. Lungs/pleura: Slightly decreased but persistent patchy consolidations in the right lung. Slightly decreased left perihilar opacities/consolidations. Possible small bilateral pleural effusions. Heart/mediastinum: Stable mild enlargement of the cardiomediastinal silhouette. Soft tissues: Unremarkable. Bones: No acute fracture. Degenerative changes of the visualized right acromioclavicular joint. Degenerative changes of the spine. Upper abdomen: Normal. 02/11/19 - chest x-ray - IMPRESSION: Slightly decreased but persistent patchy consolidations in the right lung. Slightly decreased left perihilar opacities. Findings may IMPRESSION: 1. No significant change in the interstitial and alveolar opacities in bilateral lungs. 2. Possible small bilateral pleural effusions, unchanged. represent infectious/inflammatory process and/or pulmonary edema. Possible small bilateral pleural effusions. 02/16/19 - chest x-ray - Impression: Worsening of aeration with increasing interstitial and bilateral predominantly perihilar airspace disease. Findings likely related to worsening CHF/pulmonary edema. Superimposed pneumonia to be excluded clinically. Follow-up recommended. Chest x-ray - 02/18/19 - COMPARISON: Chest radiograph on 02/16/2019 FINDINGS: Hardware: Endotracheal tube terminates in the region of the mid thoracic trachea. Enteric tube courses past the diaphragm and out of the field of view. Lungs/pleura: Slightly decreased but persistent hazy and interstitial opacities. Persistent small left pleural effusion. Heart/mediastinum: Stable mild enlargement of the cardiomediastinal silhouette. Soft tissues: Unremarkable. Bones: No acute fracture. Upper abdomen: Normal. IMPRESSION: Slightly decreased but persistent changes suggesting pulmonary edema. Component of infectious/inflammatory process is not excluded. Persistent small left pleural effusion. Chest x-ray - 02/20/19 - Procedure: XRAY Chest 1v Indication: Dyspnea Comparison: Earlier same day A single view chest radiograph was obtained. Findings: Intubation noted. The endotracheal tube is in good position about 3 cm above the christal. Cardiomegaly again noted. Moderate pulmonary vascular congestion demonstrated. IMPRESSION: Endotracheal tube in good position. CHF Chest x-ray - - FINDINGS: The tip of the endotracheal tube is appropriately positioned, projecting between the clavicular heads. The sidehole of the enteric tube projects within the stomach. Extensive bilateral consolidation is again noted. Favor multilobar pneumonia. Heart size is borderline, but likely exaggerated by portable technique. No pneumothorax. Bony degenerative changes. IMPRESSION: Extensive airspace consolidation, similar to prior. Favor multilobar pneumonia. Appropriately positioned tubes. Chest x-ray - 02/24/19 - IMPRESSION: No significant interval change compared to the prior chest x-ray. Cardiomegaly with diffuse interstitial and alveolar opacities, which may represent pulmonary edema versus pneumonia. Chest x-ray - 02/26/19 - IMPRESSION: No significant interval change compared to the prior chest x-ray. Cardiomegaly with diffuse interstitial and alveolar opacities, which may represent pulmonary edema versus pneumonia. Chest x-ray - 03/03/19 - Comparison: 02/26/2019 A single view chest radiograph was obtained. Findings: Central hilar edema with cephalization of pulmonary vessels and interstitial opacities likely due to CHF demonstrated. There is a probable left pleural effusion. NG tube and tracheostomy noted in good position. IMPRESSION: Status post tracheostomy. No pneumothorax Pulmonary edema. Chest x-ray - 03/07/19 - A single view chest radiograph was obtained. Findings: There is enlargement of the cardiac silhouette with pulmonary vascular redistribution and prominence, hazy vessel margins and the suggestion of interstitial edema consistent with CHF. Tracheostomy noted. PICC line is in good position unchanged. IMPRESSION: CHF unchanged Microbiology Date/Time Source Procedure Growth Status 03/03/19 12:40 Blood Blood Culture - Preliminary NO GROWTH AFTER 4 DAYS Resulted 03/01/19 20:00 Sputum Induced Gram Stain - Final Complete 03/01/19 20:00 Sputum Induced Sputum Culture - Final NORMAL UPPER RESPIRATORY ADRIANA AT 48 ... Complete 03/03/19 18:00 Indwelling Cath Urine Culture - Final NO GROWTH AFTER 48 HOURS Complete 02/06/19 17:10 Rectal Mucosa - Final NO CARBAPENEM-RESISTANT ENTEROBACTERI... Complete Laboratory Tests Test 03/08/19 04:00 White Blood Count 2.5 K/UL (4.8-10.8) L Red Blood Count 2.63 M/UL (4.70-6.10) L Hemoglobin 7.6 G/DL (14.2-18.0) L Hematocrit 22.9 % (42.0-52.0) L Mean Corpuscular Volume 87 FL (80-99) Mean Corpuscular Hemoglobin 29.0 PG (27.0-31.0) Mean Corpuscular Hemoglobin Concent 33.2 G/DL (32.0-36.0) Red Cell Distribution Width 15.7 % (11.6-14.8) H Platelet Count 93 K/UL (150-450) L Mean Platelet Volume 6.4 FL (6.5-10.1) L Neutrophils (%) (Auto) % (45.0-75.0) Lymphocytes (%) (Auto) % (20.0-45.0) Monocytes (%) (Auto) % (1.0-10.0) Eosinophils (%) (Auto) % (0.0-3.0) Basophils (%) (Auto) % (0.0-2.0) Differential Total Cells Counted 100 Neutrophils % (Manual) 50 % (45-75) Lymphocytes % (Manual) 34 % (20-45) Monocytes % (Manual) 13 % (1-10) H Eosinophils % (Manual) 2 % (0-3) Basophils % (Manual) 1 % (0-2) Band Neutrophils 0 % (0-8) Platelet Estimate Decreased L Platelet Morphology Normal Hypochromasia 3+ Anisocytosis 1+ Spherocytes 2+ Sodium Level 136 MMOL/L (136-145) Potassium Level 3.9 MMOL/L (3.5-5.1) Chloride Level 100 MMOL/L (98-107) Carbon Dioxide Level 32 MMOL/L (21-32) Anion Gap 4 mmol/L (5-15) L Blood Urea Nitrogen 24 mg/dL (7-18) H Creatinine 1.6 MG/DL (0.55-1.30) H Estimat Glomerular Filtration Rate 44.5 mL/min (>60) Glucose Level 156 MG/DL (74-106) H Calcium Level 8.4 MG/DL (8.5-10.1) L Phosphorus Level 2.8 MG/DL (2.5-4.9) Magnesium Level 2.0 MG/DL (1.8-2.4) Total Bilirubin 0.5 MG/DL (0.2-1.0) Aspartate Amino Transf (AST/SGOT) 38 U/L (15-37) H Alanine Aminotransferase (ALT/SGPT) 45 U/L (12-78) Alkaline Phosphatase 144 U/L (46-116) H Total Protein 5.0 G/DL (6.4-8.2) L Albumin 2.0 G/DL (3.4-5.0) L Globulin 3.0 g/dL Albumin/Globulin Ratio 0.7 (1.0-2.7) L Current Medications Medications (Trade) Dose Ordered Sig/Marquis Route PRN Reason Start Time Stop Time Status Last Admin Dose Admin Acetaminophen (Tylenol) 650 mg Q4H PRN ORAL Mild Pain (Pain Scale 1-3) 02/07/19 11:15 03/08/19 17:29 03/07/19 07:50 Acetaminophen/ Butalbital/ Caffeine (Fioricet) 1 tab Q8H PRN ORAL For Headache 02/08/19 17:15 03/10/19 17:14 Albuterol/ Ipratropium (Albuterol/ Ipratropium) 3 ml Q6HRT HHN 03/03/19 19:00 03/08/19 18:59 03/08/19 12:46 Amlodipine Besylate (Norvasc) 10 mg DAILY NG 02/15/19 09:00 03/14/19 15:59 03/08/19 09:29 Artificial Tears (Lacri-Lube) 1 applic AC+HS BOTH EYES 02/18/19 06:30 03/20/19 06:29 03/08/19 16:52 Bisacodyl (Dulcolax) 5 mg DAILYPRN PRN ORAL Constipation 02/08/19 17:15 03/10/19 17:14 02/25/19 12:45 Chlorhexidine Gluconate (Jessy-Hex 2%) 1 applic DAILY@2000 TOPIC 02/25/19 20:00 03/27/19 19:59 03/07/19 20:40 Clonidine HCl (Catapres tab) 0.2 mg EVERY 8 HOURS NG 03/02/19 22:00 03/19/19 13:59 03/08/19 14:23 Dextrose (Dextrose 50%) 25 ml Q30M PRN IV Hypoglycemia 03/01/19 07:15 03/31/19 07:14 Dextrose (Dextrose 50%) 50 ml Q30M PRN IV Hypoglycemia 03/01/19 07:15 03/31/19 07:14 03/05/19 05:32 Docusate Sodium (Colace) 100 mg TID GT 02/12/19 18:00 03/12/19 08:59 03/07/19 09:26 Fentanyl Citrate 2500 mcg/Sodium Chloride 250 ml @ 0 mls/hr Q24H IV 03/03/19 00:00 03/10/19 00:00 03/07/19 11:22 Fluconazole/ Sodium Chloride 100 ml @ 100 mls/hr Q24H IV 03/03/19 18:00 03/10/19 17:59 03/08/19 17:02 Heparin Sodium (Porcine) (Heparin 5000 units/ml) 5,000 units EVERY 12 HOURS SUBQ 03/06/19 21:00 04/05/19 20:59 03/08/19 09:40 Hydralazine HCl (Apresoline) 10 mg Q4H PRN IV bp over 165 syst 02/17/19 10:15 03/19/19 10:14 02/19/19 14:45 Hydralazine HCl (Apresoline) 50 mg Q8HR NG 02/22/19 14:00 03/21/19 21:59 03/08/19 14:22 Insulin Aspart (NovoLOG) EVERY 6 HOURS SUBQ 02/26/19 12:00 03/28/19 11:59 03/08/19 12:05 Insulin Detemir (Levemir) 10 units Q12HR SUBQ 03/05/19 09:00 04/01/19 20:59 03/08/19 09:41 Lorazepam (Ativan 2mg/ml 1ml) 2 mg Q2H PRN IV For Anxiety 03/06/19 19:45 03/13/19 19:44 03/08/19 16:52 Meropenem 1 gm/ Sodium Chloride 55 ml @ 110 mls/hr Q12HR IVPB 03/06/19 21:00 03/11/19 20:59 03/08/19 09:23 Metoclopramide HCl (Reglan) 5 mg Q8H IVP 02/26/19 09:00 03/28/19 08:59 03/08/19 16:52 Metolazone (Zaroxolyn) 10 mg DAILY NG 02/19/19 10:00 03/21/19 09:59 03/08/19 09:27 Metoprolol Tartrate (Lopressor) 100 mg Q12HR ORAL 02/22/19 21:00 03/08/19 20:59 03/08/19 09:28 Midazolam HCl (Versed 2mg/2ml vial) 1 mg Q2H PRN IVP Agitation 02/13/19 08:45 03/15/19 08:44 03/08/19 10:03 Neomycin/ Polymyxin/ Dexamethasone (Maxitrol Opth Oint) 1 applic BEDTIME BOTH EYES 02/18/19 21:00 03/20/19 20:59 03/07/19 20:41 Nitroglycerin (Ntg) 0.4 mg Q5M PRN SL Prn Chest Pain 02/07/19 11:00 03/08/19 17:29 02/08/19 07:42 Pantoprazole (Protonix) 40 mg DAILY IVP 02/26/19 09:00 03/24/19 20:59 03/08/19 09:26 Patient Own Medication (Patient's Own Med) 1 ea BID ORAL 03/08/19 09:00 04/07/19 08:59 03/08/19 17:03 Patient Own Medication (Patient's Own Med) 1 ea DAILY ORAL 03/07/19 09:00 04/04/19 11:59 03/08/19 09:25 Patient Own Medication (Patient's Own Med) 2 ea DAILY ORAL 02/08/19 09:00 03/10/19 08:59 03/08/19 09:25 Polyethylene Glycol (Miralax) 17 gm BEDTIME ORAL 02/08/19 21:00 03/10/19 20:59 03/07/19 20:42 Quetiapine Fumarate (SEROquel) 25 mg Q12HR ORAL 03/08/19 21:00 04/07/19 20:59 Sennosides (Senokot) 8.6 mg DAILY ORAL 02/13/19 12:00 03/15/19 11:59 03/08/19 09:28 Trimethoprim/ Sulfamethoxazole (Bactrim-DS) 1 tab DAILY ORAL 03/04/19 09:00 03/11/19 08:59 03/08/19 09:28 Vancomycin HCl (Vanco rx to dose) 1 ea DAILY PRN MISC Per rx protocol 03/03/19 11:00 04/02/19 10:59 Vancomycin HCl/ Dextrose 275 ml @ 183.333 mls/hr Q24H IVPB 03/07/19 09:00 03/12/19 08:59 03/08/19 09:24 Russ Tony MD Mar 08, 2019 17:27
--- NOTE | 2019-03-08 17:30 | NUR ---
NURSE NOTES: MD GUIDRY HERE TO SEE PT. INFORMED THAT FENTANYL DRIP OFF. PT HAS BOUTS OF AGITATION AND MD CANTOR PLACED ORDER FOR SEROQUEL 25MG. OK TO TRANSFER PT TO [facility].
--- NOTE | 2019-03-08 18:16 | NUR ---
NURSE NOTES: PT RESTING. PT CLEANED AND REPOSITIONED. VSS. CALLED TO INFORM WILL CALL ORDER CLERK TRANSFER ORDER. AWAITING CALL BACK WITH ROOM AND RECEIVING NURSE.
--- NOTE | 2019-03-08 19:24 | NUR ---
HAND-OFF: Report given to Keyla ZARATE. pt in no acute distress.
--- NOTE | 2019-03-08 19:25 | NUR ---
NURSE NOTES: Endorsement received from TESSA Shepherd. Patient asleep, arousable per name. Able to communicate by nodding or shaking head, mouthing words. With Trache, Shiley 8.0. On oxygen via cool aerosol, 30%. No shortness of breath. With right upper arm PICC. G tube patent and intact. Receiving Glucerna 1.5 43 ml/hr. With Simon catheter, rectal tube. Bilateral soft wrists restraints for attempting to pull out tubes. SCDs in place. On P200 mattress. Head of bed elevated. Bed locked and in low position. Bed alarm on. Call light within reach.
[2019-03-08] MEDS: Maxitrol Opth Oint 3.5gm BOTH EYES SCH (20:18)
[2019-03-08] MEDS: Dyna-Hex 2% Top Sol 2oz TOPIC SCH (20:18)
[2019-03-08] MEDS: Miralax 17gm pkt ORAL SCH (20:59)
--- NOTE | 2019-03-08 22:00 | NUR ---
NURSE NOTES: Secretions suctioned, scant secretions noted. Repositioned.
[2019-03-09] VITALS (12 sets, daily range): BP systolic 115–172; BP diastolic 53–92
[2019-03-09] MEDS: fentaNYL Citrate 2,500 MCG in NS 200 ML IV SCH ×2
--- NOTE | 2019-03-09 | NUR ---
NURSE NOTES: Patient asleep. No shortness of breath. Sinus rhythm on the monitor. Bilateral upper and lower extremities kept elevated. Tolerating tube feeding.
[2019-03-09] MEDS: NovoLOG Insulin Flexpen SUBQ SCH ×4 (00:13→18:26)
[2019-03-09] MEDS: Albuterol/Ipratropium 3ml neb HHN SCH ×5 (01:01→19:55)
[2019-03-09] MEDS: Metoclopramide 10mg/2ml Inj IVP SCH ×3 (01:11→17:00)
--- NOTE | 2019-03-09 02:00 | NUR ---
NURSE NOTES: Patient asleep. Vital signs stable.
--- NOTE | 2019-03-09 04:00 | NUR ---
NURSE NOTES: Patient was seen and examined by Dr. Tilley, covering for Dr. Nichols. No new order at this time.
--- NOTE | 2019-03-09 04:30 | NUR ---
NURSE NOTES: Bed bath, oral care, change of linens done.
[2019-03-09] MEDS: HydrALAZINE 50mg tab NG SCH ×3 (05:48→21:07)
[2019-03-09] MEDS: Lacri-Lube Opth Oint 3.5gm BOTH EYES SCH ×4 (05:49→21:06)
[2019-03-09] MEDS: cloNIDine 0.2mg Tab NG SCH ×3 (05:49→21:07)
[2019-03-09 06:08] LABS: HEMATOCRIT 25.1 % (42.0-52.0); HEMOGLOBIN 8.3 G/DL (14.2-18.0); MEAN CORPUSCULAR VOLUME 87 FL (80-99); PLATELET COUNT 104 K/UL (150-450); RED CELL DISTRIBUTION WIDTH 15.7 % (11.6-14.8); WHITE BLOOD COUNT 2.8 K/UL (4.8-10.8)
[2019-03-09 06:17] LABS: ALANINE AMINOTRANSFERASE 45 U/L (12-78); ALBUMIN 2.1 G/DL (3.4-5.0); ALBUMIN/GLOBULIN RATIO 0.6 (1.0-2.7); ALKALINE PHOSPHATASE 164 U/L (46-116); ANION GAP 6 mmol/L (5-15); ASPARTATE AMINO TRANSFERASE 37 U/L (15-37); BILIRUBIN,TOTAL 0.4 MG/DL (0.2-1.0); BLOOD UREA NITROGEN 21 mg/dL (7-18); CALCIUM 8.5 MG/DL (8.5-10.1); CARBON DIOXIDE 32 MMOL/L (21-32); CHLORIDE 100 MMOL/L (98-107); CREATININE 1.6 MG/DL (0.55-1.30); POTASSIUM 3.7 MMOL/L (3.5-5.1); SODIUM 138 MMOL/L (136-145)
--- NOTE | 2019-03-09 07:00 | NUR ---
TRANSFER TO FLOOR: Patient transfered to [facility], per hospital bed with RT. Report given to TESSA Noel. Belongings checked at bedside with Sadie, medications given to Charge Nurse Mary.
--- NOTE | 2019-03-09 07:01 | NUR ---
NURSE NOTES: Received patient in bed. On Tpiece. No respiratory distress.. On continuous GTF. Bilateral soft wrist restraint noted. Will continue plan of care.
[2019-03-09] MEDS ORDERED: Bisacodyl EC 5mg tab ORAL PRN (07:30)
--- NOTE | 2019-03-09 07:31 | NUR ---
RESPIRATORY NOTE: pt on t-piece CA at 30% with no signs of resp distress. vent still on stand-by if needed. pt trach with shiley 8, placed midline and patent and secured by trach tie/guard. no redness or skin tears seen around stoma and neck. will cont to monitor. Addendum: 03/09/19 at 0735 by GIO RIBEIRO RT correction, t-piece CA 28%
[2019-03-09] MEDS ORDERED: Midazolam 2mg/2ml Inj IVP PRN (08:00)
[2019-03-09] MEDS: Docusate 100mg/10ml Liq GT SCH ×3 (09:00→18:00)
[2019-03-09] MEDS: Sennosides 8.6mg tab ORAL SCH (09:00)
[2019-03-09] MEDS ORDERED: VANCOMYCIN 1250 MG IVPB SCH (09:00)
[2019-03-09] MEDS: Bactrim-DS 1 tab ORAL SCH (09:12)
[2019-03-09] MEDS: Pantoprazole Inj IVP SCH (09:12)
[2019-03-09] MEDS: Meropenem 1 GM in NS 55 ML IVPB SCH ×2 (09:12→21:07)
[2019-03-09] MEDS: RALTEGRAVIR 400 MG ORAL SCH ×2 (09:13→18:00)
[2019-03-09] MEDS: ETRAVIRINE 200 MG ORAL SCH (09:14)
[2019-03-09] MEDS: TENOFOVIR DISOPROXIL FUMARATE 300 MG ORAL SCH (09:14)
[2019-03-09] MEDS: Heparin 5000 units/ml inj SUBQ SCH ×2 (09:22→21:00)
--- NOTE | 2019-03-09 09:46 | NUR ---
LEGAL TRANSCRIPTIONISTPLACEMENT ASSISTANT SI:RESPIRATORY FAILURE . S/P PEG VS: BP 124/60, P 81, T 98.9, RR 22, SpO2 100 on T-piece WBC 2.8, RBC 2.90, H&H 8.3/25.1, Plt Count 104, BUN 21, CR 1.6 IS:VANCOMYCIN 275ml IVPB METOLAZONE 10mg HEPARIN SUBQ MEROPENEM 55ml IVPB PROTONIX 40mg NORVASC 10mg REGLAN 5mg ALBUTEROL HHN PLAN: VANCOMYCIN DIFLUCAN OFF VENT ON C-pap ICU STATUS
[2019-03-09] MEDS: Levemir Flexpen SUBQ SCH ×2 (10:08→21:08)
--- NOTE | 2019-03-09 10:29 | Nephrology Progress Note ---
Assessment/Plan Problem List: (1) ISH (acute kidney injury) Assessment: Cr lowering (2) HIV (human immunodeficiency virus infection) (3) NSTEMI (non-ST elevated myocardial infarction) Assessment: troponin decreasing (4) Hypoxia (5) Anemia (6) Diabetes Assessment Acute Renal failure- Cr leveling- Urine out put is good Acidosis improved Acute respiratory failure- Require intubation and Mechanical Ventilation- Anemia- Elevated troponin / VA HTN DM HIV Antibody + Plan Trach 03/02 mag and K and Phos supplement as needed adjust BP meds on feeding IV protonix transfusiosn as needed BP med adjustment UA and urine studies Avoid Nephrotoxics as possible Monitor renal parameters keep BP and BS in check Per orders No HD at this time Kidney RADHA noted adjust BP meds add Isordil Subjective ROS Limited/Unobtainable: Yes Objective Objective Last 24 Hour Vital Signs Date Time Temp Pulse Resp B/P (MAP) Pulse Ox O2 Delivery O2 Flow Rate FiO2 03/09/19 09:11 82 124/60 03/09/19 08:00 T-piece T-piece 03/09/19 08:00 98.9 82 20 124/60 (81) 99 03/09/19 07:49 82 03/09/19 07:32 82 22 100 T-Piece 6.0 28 03/09/19 07:27 81 22 100 T-Piece 8.0 30 03/09/19 07:26 100 T-Piece 8.0 30 03/09/19 07:25 82 22 100 T-Piece 6.0 28 03/09/19 06:00 83 23 164/64 (97) 100 03/09/19 05:49 172/55 03/09/19 05:48 172/55 03/09/19 05:00 83 23 157/63 (94) 100 03/09/19 04:30 83 23 157/63 (94) 100 03/09/19 04:00 98.9 83 24 172/66 (101) 99 03/09/19 04:00 85 03/09/19 04:00 T-piece T-piece 03/09/19 03:00 88 23 128/92 (104) 100 03/09/19 02:00 80 29 143/53 (83) 98 03/09/19 01:13 77 32 100 Trach Collar 6.0 28 03/09/19 01:01 100 T-Piece 8.0 30 03/09/19 01:01 76 30 100 Trach Collar 8.0 30 03/09/19 01:00 76 22 140/56 (84) 98 03/09/19 00:00 T-piece T-piece 03/09/19 00:00 74 03/09/19 00:00 99.1 75 27 145/56 (85) 100 03/08/19 23:00 73 25 141/53 (82) 99 03/08/19 22:00 79 25 135/53 (80) 98 1819 21:46 141/61 18 21:46 141/61 03/08/19 21:00 77 30 153/61 (91) 100 03/08/19 20:00 77 30 141/56 (84) 97 03/08/19 20:00 T-piece T-piece 03/08/19 20:00 76 03/08/19 19:20 74 36 99 Trach Collar 8.0 30 03/08/19 19:10 73 22 98 Trach Collar 8.0 30 03/08/19 19:00 99.0 73 29 134/55 (81) 96 03/08/19 18:53 74 37 97 T-Piece 8.0 30 03/08/19 18:52 97 T-Piece 12.0 40 03/08/19 18:00 73 33 134/56 (82) 100 03/08/19 17:00 78 27 134/56 (82) 96 03/08/19 16:00 76 03/08/19 16:00 99.0 76 22 118/47 (70) 97 03/08/19 16:00 T-piece T-piece 03/08/19 15:00 75 34 125/48 (73) 96 1819 14:23 133/47 1819 14:22 133/47 1819 14:00 77 32 133/47 (75) 98 18/19 13:02 76 20 99 Trach Collar 8.0 30 03/08/19 13:00 98.8 77 29 132/47 (75) 99 18/19 12:46 100 T-Piece 12.0 40 18/19 12:46 76 20 100 Trach Collar 12.0 40 18/19 12:00 75 26 140/52 (81) 100 7/18/19 12:00 76 03/08/19 12:00 T-piece T-piece 03/08/19 11:00 74 26 134/53 (80) 100 Intake and Output 03/08/19 03/09/19 19:00 07:00 Intake Total 1272.666 ml 808 ml Output Total 1320 ml 1225 ml Balance -47.334 ml -417 ml Free Water 100 ml IV Total 576.666 ml 55 ml Tube Feeding 516 ml 473 ml Other 180 ml 180 ml Output Urine Total 1240 ml 1225 ml Stool Total 80 ml Laboratory Tests 03/09/19 04:00: White Blood Count 2.8L, Red Blood Count 2.90L, Hemoglobin 8.3L, Hematocrit 25.1L , Mean Corpuscular Volume 87, Mean Corpuscular Hemoglobin 28.5, Mean Corpuscular Hemoglobin Concent 32.9, Red Cell Distribution Width 15.7H, Platelet Count 104L, Mean Platelet Volume 6.0L, Neutrophils (%) (Auto) , Lymphocytes (%) (Auto) , Monocytes (%) (Auto) , Eosinophils (%) (Auto) , Basophils (%) (Auto) , Differential Total Cells Counted 100, Neutrophils % ( Manual) 53, Lymphocytes % (Manual) 32, Monocytes % (Manual) 12H, Eosinophils % ( Manual) 3, Basophils % (Manual) 0, Band Neutrophils 0, Platelet Estimate DecreasedL, Platelet Morphology Normal, Anisocytosis 1+, Sodium Level 138, Potassium Level 3.7, Chloride Level 100, Carbon Dioxide Level 32, Anion Gap 6, Blood Urea Nitrogen 21H, Creatinine 1.6H, Estimat Glomerular Filtration Rate 44.5, Glucose Level 195H, Calcium Level 8.5, Total Bilirubin 0.4, Aspartate Amino Transf (AST/SGOT) 37, Alanine Aminotransferase (ALT/SGPT) 45, Alkaline Phosphatase 164H, Total Protein 5.4L, Albumin 2.1L, Globulin 3.3, Albumin/ Globulin Ratio 0.6L 03/09/19 08:00: Vancomycin Level Trough 12.8H Height (Feet): 6 Height (Inches): 0.00 Weight (Pounds): 250 General Appearance: no apparent distress Objective no change Mike Mcdonald MD Mar 09, 2019 10:29
[2019-03-09] MEDS ORDERED: NS 275ml ONE (11:02)
[2019-03-09] MEDS ORDERED: Tubing IV Secondary IV ONE (11:02)
--- NOTE | 2019-03-09 11:38 | GI Progress Note ---
Assessment/Plan Problems: (1) Anemia ICD Codes: D64.9 - Anemia, unspecified SNOMED: 296419906 (2) Anxiety ICD Codes: F41.9 - Anxiety disorder, unspecified SNOMED: 95710976 (3) Anemia ICD Codes: D64.9 - Anemia, unspecified SNOMED: 853377748 (4) Uncontrolled type 2 diabetes mellitus with chronic kidney disease ICD Codes: E11.22 - Type 2 diabetes mellitus with diabetic chronic kidney disease; E11.65 - Type 2 diabetes mellitus with hyperglycemia SNOMED: 85348639, 685987525, 954850565 Status: stable Status Narrative Discussed with Dr. Ricketts. Assessment/Plan 1. History of HIV. 2. Hypertension. 3. Vertigo. 4. History of headaches. 5. History of diabetes. 6. Respiratory failure 7. Dysphagia 8. ileus s/p PEG GTFs per RD GT site care daily/prn prn transfusions ppi electrolyte replacement follow labs The patient was seen and examined at bedside and all new and available data was reviewed in the patients chart. I agree with the above findings, impression and plan. (Patient seen earlier today. Signature stamp does not reflect patient encounter time.). - Kg Ricketts MD Subjective Subjective limited Objective Last 24 Hour Vital Signs Date Time Temp Pulse Resp B/P (MAP) Pulse Ox O2 Delivery O2 Flow Rate FiO2 03/09/19 09:11 82 124/60 03/09/19 08:00 T-piece T-piece 03/09/19 08:00 98.9 82 20 124/60 (81) 99 03/09/19 07:49 82 03/09/19 07:32 82 22 100 T-Piece 6.0 28 03/09/19 07:27 81 22 100 T-Piece 8.0 30 03/09/19 07:26 100 T-Piece 8.0 30 03/09/19 07:25 82 22 100 T-Piece 6.0 28 03/09/19 06:00 83 23 164/64 (97) 100 03/09/19 05:49 172/55 03/09/19 05:48 172/55 03/09/19 05:00 83 23 157/63 (94) 100 03/09/19 04:30 83 23 157/63 (94) 100 03/09/19 04:00 98.9 83 24 172/66 (101) 99 03/09/19 04:00 85 03/09/19 04:00 T-piece T-piece 03/09/19 03:00 88 23 128/92 (104) 100 03/09/19 02:00 80 29 143/53 (83) 98 03/09/19 01:13 77 32 100 Trach Collar 6.0 28 03/09/19 01:01 100 T-Piece 8.0 30 03/09/19 01:01 76 30 100 Trach Collar 8.0 30 03/09/19 01:00 76 22 140/56 (84) 98 03/09/19 00:00 T-piece T-piece 03/09/19 00:00 74 03/09/19 00:00 99.1 75 27 145/56 (85) 100 03/08/19 23:00 73 25 141/53 (82) 99 03/08/19 22:00 79 25 135/53 (80) 98 03/08/19 21:46 141/61 03/08/19 21:46 141/61 03/08/19 21:00 77 30 153/61 (91) 100 03/08/19 20:00 77 30 141/56 (84) 97 03/08/19 20:00 T-piece T-piece 03/08/19 20:00 76 03/08/19 19:20 74 36 99 Trach Collar 8.0 30 03/08/19 19:10 73 22 98 Trach Collar 8.0 30 03/08/19 19:00 99.0 73 29 134/55 (81) 96 03/08/19 18:53 74 37 97 T-Piece 8.0 30 03/08/19 18:52 97 T-Piece 12.0 40 03/08/19 18:00 73 33 134/56 (82) 100 18 17:00 78 27 134/56 (82) 96 03/08/19 16:00 76 03/08/19 16:00 99.0 76 22 118/47 (70) 97 18/19 16:00 T-piece T-piece 03/08/19 15:00 75 34 125/48 (73) 96 18 14:23 133/47 1819 14:22 133/47 03/08/19 14:00 77 32 133/47 (75) 98 03/08/19 13:02 76 20 99 Trach Collar 8.0 30 03/08/19 13:00 98.8 77 29 132/47 (75) 99 03/08/19 12:46 100 T-Piece 12.0 40 03/08/19 12:46 76 20 100 Trach Collar 12.0 40 03/08/19 12:00 75 26 140/52 (81) 100 03/08/19 12:00 76 03/08/19 12:00 T-piece T-piece Intake and Output 03/08/19 03/09/19 19:00 07:00 Intake Total 1272.666 ml 808 ml Output Total 1320 ml 1225 ml Balance -47.334 ml -417 ml Free Water 100 ml IV Total 576.666 ml 55 ml Tube Feeding 516 ml 473 ml Other 180 ml 180 ml Output Urine Total 1240 ml 1225 ml Stool Total 80 ml Laboratory Tests Test 03/09/19 04:00 03/09/19 08:00 White Blood Count 2.8 K/UL (4.8-10.8) L Red Blood Count 2.90 M/UL (4.70-6.10) L Hemoglobin 8.3 G/DL (14.2-18.0) L Hematocrit 25.1 % (42.0-52.0) L Mean Corpuscular Volume 87 FL (80-99) Mean Corpuscular Hemoglobin 28.5 PG (27.0-31.0) Mean Corpuscular Hemoglobin Concent 32.9 G/DL (32.0-36.0) Red Cell Distribution Width 15.7 % (11.6-14.8) H Platelet Count 104 K/UL (150-450) L Mean Platelet Volume 6.0 FL (6.5-10.1) L Neutrophils (%) (Auto) % (45.0-75.0) Lymphocytes (%) (Auto) % (20.0-45.0) Monocytes (%) (Auto) % (1.0-10.0) Eosinophils (%) (Auto) % (0.0-3.0) Basophils (%) (Auto) % (0.0-2.0) Differential Total Cells Counted 100 Neutrophils % (Manual) 53 % (45-75) Lymphocytes % (Manual) 32 % (20-45) Monocytes % (Manual) 12 % (1-10) H Eosinophils % (Manual) 3 % (0-3) Basophils % (Manual) 0 % (0-2) Band Neutrophils 0 % (0-8) Platelet Estimate Decreased L Platelet Morphology Normal Anisocytosis 1+ Sodium Level 138 MMOL/L (136-145) Potassium Level 3.7 MMOL/L (3.5-5.1) Chloride Level 100 MMOL/L (98-107) Carbon Dioxide Level 32 MMOL/L (21-32) Anion Gap 6 mmol/L (5-15) Blood Urea Nitrogen 21 mg/dL (7-18) H Creatinine 1.6 MG/DL (0.55-1.30) H Estimat Glomerular Filtration Rate 44.5 mL/min (>60) Glucose Level 195 MG/DL (74-106) H Calcium Level 8.5 MG/DL (8.5-10.1) Total Bilirubin 0.4 MG/DL (0.2-1.0) Aspartate Amino Transf (AST/SGOT) 37 U/L (15-37) Alanine Aminotransferase (ALT/SGPT) 45 U/L (12-78) Alkaline Phosphatase 164 U/L (46-116) H Total Protein 5.4 G/DL (6.4-8.2) L Albumin 2.1 G/DL (3.4-5.0) L Globulin 3.3 g/dL Albumin/Globulin Ratio 0.6 (1.0-2.7) L Vancomycin Level Trough 12.8 ug/mL (5.0-12.0) H Height (Feet): 6 Height (Inches): 0.00 Weight (Pounds): 250 General Appearance: no apparent distress Cardiovascular: normal rate Respiratory/Chest: no respiratory distress Abdominal Exam: normal bowel sounds, non tender, soft, GT site Extremities: non-tender Hortencia Zheng NP Mar 09, 2019 11:38
--- NOTE | 2019-03-09 12:18 | NUR ---
RD ASSESSMENT & RECOMMENDATIONS SEE CARE ACTIVITY FOR COMPLETE ASSESSMENT DAILY ESTIMATED NEEDS: Needs based on Pulmonary, HIV, sedentary/ 85kg adj 23-30 kcals/kg 4810-5851 total kcals 1-1.5 g protein/kg 85-128 g total protein 25-30 mL/kg 4318-2634 total fluid mLs NUTRITION DIAGNOSIS: *Swallowing difficulty r/t respiratory status as evidenced by ICU status, unable to wean, now s/p trach and PEG placement, on GT feeding. * Altered nutrition related lab values R/T clinical condition, ISH, DM as evidenced by elev K (5.8- now wnl->5.5 -> wnl), elev creat (1.5->3.9->2.6-> 1.6), elev phos (5.5-> wnl), A1C 7.0. CURRENT TF:Glucerna 1.5 @ 43ml/hr x 24 hrs ENTERAL NUTRITION RECOMMENDATIONS: Glucerna 1.5 @ 55ml/hr x 24 hrs to provide 1320ml, 1980kcal, 109g prot, 1002ml free water - Increase goal rate to 55ml/hr x 24 hrs to meet 100% est kcal/prot needs - Flush per MD/ HOB over 30 degrees ADDITIONAL RECOMMENDATIONS: 1) CALIBRATED BEDSCALE WT, weekly wts 2) Monitor renal fxn, K and Phos- K and phos now wnl, renal fxn improved. -> Monitor need to change TF back to Nepro (h/o elev K and phos) 3) Monitor TF tolerance -> Now on reglan 4) Pt w/ rectal tube: rec to hold all stool softeners - .
[2019-03-09] MEDS: LORazepam Inj 2mg/ml 1ml IV PRN (12:23)
--- NOTE | 2019-03-09 14:04 | Cardiac Electrophysiology PN ---
Assessment/Plan Assessment/Plan 1. Non-ST elevation myocardial infarction with peak troponin of more than 10, down to 3.[address]-T wave abnormalities. Continue Lipitor, Imdur and metoprolol Not a candidate for Cardiac catheterization 2. Hypertension. Metoprolol 100 bid, Isordil 20 q6 , Norvasc 10 daily, hydralazine 50 q 8 hr and Clonidine 0.2 q 8hrs 3. Respiratory failure due to Multilobar Pneumonia. Extubated 02/19/19. Reintubated 02/20/19 S/P Tracheostomy 03/02/19. Off the vent 4. Hyperlipidemia. On Lipitor. 5. Human immunodeficiency virus. On anti-retroviral therapy with undetectable viral load. 6. ARF Cr 3 Now Cr 1.6 7. Bleeding from ETT and NG tube. S/P PRBC. Off Aspirin and Lovenox No further bleeding 8. Dysphagia. S/P PEG 03/05/19 DW RN and PCP Subjective Subjective transferred out of ICU off the vent on T piece via Tracheostomy. Outside PCP at bedside Objective Last 24 Hour Vital Signs Date Time Temp Pulse Resp B/P (MAP) Pulse Ox O2 Delivery O2 Flow Rate FiO2 03/09/19 12:59 92 20 100 T-Piece 6.0 03/09/19 12:53 100 T-Piece 8.0 03/09/19 12:53 90 20 99 T-Piece 6.0 03/09/19 12:00 98.8 94 20 136/79 (98) 99 03/09/19 12:00 T-piece T-piece 03/09/19 09:11 82 124/60 03/09/19 08:00 T-piece T-piece 03/09/19 08:00 98.9 82 20 124/60 (81) 99 03/09/19 07:49 82 03/09/19 07:32 82 22 100 T-Piece 6.0 03/09/19 07:27 81 22 100 T-Piece 8.0 30 03/09/19 07:26 100 T-Piece 8.0 30 03/09/19 07:25 82 22 100 T-Piece 6.0 03/09/19 06:00 83 23 164/64 (97) 100 03/09/19 05:49 172/55 03/09/19 05:48 172/55 03/09/19 05:00 83 23 157/63 (94) 100 03/09/19 04:30 83 23 157/63 (94) 100 03/09/19 04:00 98.9 83 24 172/66 (101) 99 03/09/19 04:00 85 03/09/19 04:00 T-piece T-piece 03/09/19 03:00 88 23 128/92 (104) 100 03/09/19 02:00 80 29 143/53 (83) 98 03/09/19 01:13 77 32 100 Trach Collar 6.0 28 03/09/19 01:01 100 T-Piece 8.0 30 03/09/19 01:01 76 30 100 Trach Collar 8.0 30 03/09/19 01:00 76 22 140/56 (84) 98 03/09/19 00:00 T-piece T-piece 03/09/19 00:00 74 03/09/19 00:00 99.1 75 27 145/56 (85) 100 03/08/19 23:00 73 25 141/53 (82) 99 03/08/19 22:00 79 25 135/53 (80) 98 03/08/19 21:46 141/61 03/08/19 21:46 141/61 03/08/19 21:00 77 30 153/61 (91) 100 03/08/19 20:00 77 30 141/56 (84) 97 03/08/19 20:00 T-piece T-piece 03/08/19 20:00 76 03/08/19 19:20 74 36 99 Trach Collar 8.0 30 03/08/19 19:10 73 22 98 Trach Collar 8.0 30 03/08/19 19:00 99.0 73 29 134/55 (81) 96 03/08/19 18:53 74 37 97 T-Piece 8.0 30 03/08/19 18:52 97 T-Piece 12.0 40 03/08/19 18:00 73 33 134/56 (82) 100 03/08/19 17:00 78 27 134/56 (82) 96 03/08/19 16:00 76 03/08/19 16:00 99.0 76 22 118/47 (70) 97 03/08/19 16:00 T-piece T-piece 03/08/19 15:00 75 34 125/48 (73) 96 03/08/19 14:23 133/47 03/08/19 14:22 133/47 Intake and Output 03/08/19 03/09/19 19:00 07:00 Intake Total 1272.666 ml 808 ml Output Total 1320 ml 1225 ml Balance -47.334 ml -417 ml Free Water 100 ml IV Total 576.666 ml 55 ml Tube Feeding 516 ml 473 ml Other 180 ml 180 ml Output Urine Total 1240 ml 1225 ml Stool Total 80 ml Laboratory Tests Test 03/09/19 04:00 03/09/19 08:00 White Blood Count 2.8 K/UL (4.8-10.8) L Red Blood Count 2.90 M/UL (4.70-6.10) L Hemoglobin 8.3 G/DL (14.2-18.0) L Hematocrit 25.1 % (42.0-52.0) L Mean Corpuscular Volume 87 FL (80-99) Mean Corpuscular Hemoglobin 28.5 PG (27.0-31.0) Mean Corpuscular Hemoglobin Concent 32.9 G/DL (32.0-36.0) Red Cell Distribution Width 15.7 % (11.6-14.8) H Platelet Count 104 K/UL (150-450) L Mean Platelet Volume 6.0 FL (6.5-10.1) L Neutrophils (%) (Auto) % (45.0-75.0) Lymphocytes (%) (Auto) % (20.0-45.0) Monocytes (%) (Auto) % (1.0-10.0) Eosinophils (%) (Auto) % (0.0-3.0) Basophils (%) (Auto) % (0.0-2.0) Differential Total Cells Counted 100 Neutrophils % (Manual) 53 % (45-75) Lymphocytes % (Manual) 32 % (20-45) Monocytes % (Manual) 12 % (1-10) H Eosinophils % (Manual) 3 % (0-3) Basophils % (Manual) 0 % (0-2) Band Neutrophils 0 % (0-8) Platelet Estimate Decreased L Platelet Morphology Normal Anisocytosis 1+ Sodium Level 138 MMOL/L (136-145) Potassium Level 3.7 MMOL/L (3.5-5.1) Chloride Level 100 MMOL/L (98-107) Carbon Dioxide Level 32 MMOL/L (21-32) Anion Gap 6 mmol/L (5-15) Blood Urea Nitrogen 21 mg/dL (7-18) H Creatinine 1.6 MG/DL (0.55-1.30) H Estimat Glomerular Filtration Rate 44.5 mL/min (>60) Glucose Level 195 MG/DL (74-106) H Calcium Level 8.5 MG/DL (8.5-10.1) Total Bilirubin 0.4 MG/DL (0.2-1.0) Aspartate Amino Transf (AST/SGOT) 37 U/L (15-37) Alanine Aminotransferase (ALT/SGPT) 45 U/L (12-78) Alkaline Phosphatase 164 U/L (46-116) H Total Protein 5.4 G/DL (6.4-8.2) L Albumin 2.1 G/DL (3.4-5.0) L Globulin 3.3 g/dL Albumin/Globulin Ratio 0.6 (1.0-2.7) L Vancomycin Level Trough 12.8 ug/mL (5.0-12.0) H Objective HEAD AND NECK: No JVD. S/P tracheostomy LUNGS: Coarse rhonchi. CARDIOVASCULAR: Regular S1 and S2 with no gallop or murmur. ABDOMEN: Soft.PEG in place EXTREMITIES: 1 plus pitting edema. Murray Francois MD Mar 09, 2019 14:04
--- NOTE | 2019-03-09 14:38 | Surgery Progress Note ---
Surgery Progress Note Subjective Procedure Performed tracheostomy Symptoms: improved Additional Comments his primary care team at bedside today from outside facility visiting him. overall improved and more responsive Objective Last 24 Hour Vital Signs Date Time Temp Pulse Resp B/P (MAP) Pulse Ox O2 Delivery O2 Flow Rate FiO2 03/09/19 14:00 136/79 03/09/19 12:59 92 20 100 T-Piece 6.0 28 03/09/19 12:53 100 T-Piece 8.0 30 03/09/19 12:53 90 20 99 T-Piece 6.0 28 03/09/19 12:00 98.8 94 20 136/79 (98) 99 03/09/19 12:00 T-piece T-piece 03/09/19 11:26 92 03/09/19 09:11 82 124/60 03/09/19 08:00 T-piece T-piece 03/09/19 08:00 98.9 82 20 124/60 (81) 99 03/09/19 07:49 82 03/09/19 07:32 82 22 100 T-Piece 6.0 28 03/09/19 07:27 81 22 100 T-Piece 8.0 30 03/09/19 07:26 100 T-Piece 8.0 30 03/09/19 07:25 82 22 100 T-Piece 6.0 03/09/19 06:00 83 23 164/64 (97) 100 03/09/19 05:49 172/55 03/09/19 05:48 172/55 03/09/19 05:00 83 23 157/63 (94) 100 03/09/19 04:30 83 23 157/63 (94) 100 03/09/19 04:00 98.9 83 24 172/66 (101) 99 03/09/19 04:00 85 03/09/19 04:00 T-piece T-piece 03/09/19 03:00 88 23 128/92 (104) 100 03/09/19 02:00 80 29 143/53 (83) 98 03/09/19 01:13 77 32 100 Trach Collar 6.0 28 03/09/19 01:01 100 T-Piece 8.0 30 03/09/19 01:01 76 30 100 Trach Collar 8.0 30 03/09/19 01:00 76 22 140/56 (84) 98 03/09/19 00:00 T-piece T-piece 03/09/19 00:00 74 03/09/19 00:00 99.1 75 27 145/56 (85) 100 03/08/19 23:00 73 25 141/53 (82) 99 03/08/19 22:00 79 25 135/53 (80) 98 03/08/19 21:46 141/61 03/08/19 21:46 141/61 03/08/19 21:00 77 30 153/61 (91) 100 03/08/19 20:00 77 30 141/56 (84) 97 03/08/19 20:00 T-piece T-piece 03/08/19 20:00 76 03/08/19 19:20 74 36 99 Trach Collar 8.0 30 03/08/19 19:10 73 22 98 Trach Collar 8.0 30 03/08/19 19:00 99.0 73 29 134/55 (81) 96 03/08/19 18:53 74 37 97 T-Piece 8.0 30 03/08/19 18:52 97 T-Piece 12.0 40 03/08/19 18:00 73 33 134/56 (82) 100 03/08/19 17:00 78 27 134/56 (82) 96 03/08/19 16:00 76 03/08/19 16:00 99.0 76 22 118/47 (70) 97 03/08/19 16:00 T-piece T-piece 03/08/19 15:00 75 34 125/48 (73) 96 I&O Intake and Output 03/08/19 03/09/19 19:00 07:00 Intake Total 1272.666 ml 808 ml Output Total 1320 ml 1225 ml Balance -47.334 ml -417 ml Free Water 100 ml IV Total 576.666 ml 55 ml Tube Feeding 516 ml 473 ml Other 180 ml 180 ml Output Urine Total 1240 ml 1225 ml Stool Total 80 ml Cardiovascular: RSR Respiratory: clear Abdomen: soft, non-tender, present bowel sounds Extremities: no tenderness, no cyanosis Laboratory Tests Test 03/09/19 04:00 03/09/19 08:00 White Blood Count 2.8 K/UL (4.8-10.8) L Red Blood Count 2.90 M/UL (4.70-6.10) L Hemoglobin 8.3 G/DL (14.2-18.0) L Hematocrit 25.1 % (42.0-52.0) L Mean Corpuscular Volume 87 FL (80-99) Mean Corpuscular Hemoglobin 28.5 PG (27.0-31.0) Mean Corpuscular Hemoglobin Concent 32.9 G/DL (32.0-36.0) Red Cell Distribution Width 15.7 % (11.6-14.8) H Platelet Count 104 K/UL (150-450) L Mean Platelet Volume 6.0 FL (6.5-10.1) L Neutrophils (%) (Auto) % (45.0-75.0) Lymphocytes (%) (Auto) % (20.0-45.0) Monocytes (%) (Auto) % (1.0-10.0) Eosinophils (%) (Auto) % (0.0-3.0) Basophils (%) (Auto) % (0.0-2.0) Differential Total Cells Counted 100 Neutrophils % (Manual) 53 % (45-75) Lymphocytes % (Manual) 32 % (20-45) Monocytes % (Manual) 12 % (1-10) H Eosinophils % (Manual) 3 % (0-3) Basophils % (Manual) 0 % (0-2) Band Neutrophils 0 % (0-8) Platelet Estimate Decreased L Platelet Morphology Normal Anisocytosis 1+ Sodium Level 138 MMOL/L (136-145) Potassium Level 3.7 MMOL/L (3.5-5.1) Chloride Level 100 MMOL/L (98-107) Carbon Dioxide Level 32 MMOL/L (21-32) Anion Gap 6 mmol/L (5-15) Blood Urea Nitrogen 21 mg/dL (7-18) H Creatinine 1.6 MG/DL (0.55-1.30) H Estimat Glomerular Filtration Rate 44.5 mL/min (>60) Glucose Level 195 MG/DL (74-106) H Calcium Level 8.5 MG/DL (8.5-10.1) Total Bilirubin 0.4 MG/DL (0.2-1.0) Aspartate Amino Transf (AST/SGOT) 37 U/L (15-37) Alanine Aminotransferase (ALT/SGPT) 45 U/L (12-78) Alkaline Phosphatase 164 U/L (46-116) H Total Protein 5.4 G/DL (6.4-8.2) L Albumin 2.1 G/DL (3.4-5.0) L Globulin 3.3 g/dL Albumin/Globulin Ratio 0.6 (1.0-2.7) L Vancomycin Level Trough 12.8 ug/mL (5.0-12.0) H Plan Problems: (1) Hypoxia Assessment & Plan: Extensive bilateral upper lobe infiltrates likely inflammatory/infectious. Correlate clinically. Tuberculosis is not excludable. Bilateral pleural effusions. Endotracheal tube and nasogastric tube in good position Atherosclerotic vascular disease (2) Respiratory distress Assessment & Plan: off vent s/p trach improving (3) Sepsis Assessment & Plan: Sepsis with tachycardia, leukocytosis - resolved, abnormal labs, respiratory distress on vent Cont IV abx abnormal lft's improved US noted will cont to follow with recs trend labs Rx as written can start diet soon speech Moiz Rodriguez Mar 09, 2019 14:38
--- NOTE | 2019-03-09 15:00 | General Progress Note ---
Assessment/Plan Status: stable Assessment/Plan: 58 y Male admitted to the hospital due to fever, shortness of breath and chest pain. # Multilobar pneumonia in patient with HIV - Broad sp atbx started. Continue Zosyn, Vancomycin, Azithromycin, TM-SMX ( now prophylactic and completed course for PCP/PJ pnuemonia ) - Fluconazole per ID - Droplet precaution removed. - Flu swab negative - Oxygen support, ventilatory support as not able to wean off ventilator due to agitation. - ID consult appreciated. # Hypoxemic respiratory failure - Critical care follow up. Unable to wean off the ventilator. Tracheostomy completed. - Due to pneumonia - Tolerating CPAP 03/06 # Chest pain - EKG with bifascicular block RBB and LAFB, no ST changes. - Trend troponin x3 completed - ECHO completed with no WMA and preserved EF. Dr. Francois consulted. Consideration for outpatient cath vs possibly myocarditis due to underlying viral infection. No evidence of Takotsubo per TTE. NOT a candidate for angiogram at this time. - NGT prn - Pain control with morphine # HIV - Continue HARRT - VL is undetectable per patient report. T cell count > 400 - CD 4 count 191 # HTN - Resume home medication - Clonidine, Isordil added. # Bordeline hyponatremia - Monitor - good response to NS # CKD 2-3 - Trend renal function - Worsening creatinine to 2.8 today. 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 Currently renal function stable and L femoral dialysis access removed. - R PICC done last week. # Failure to thrive and moderate protein caloric malnutrition - PEG 03/05 - Tube feeds started and tolerating - Dr. Ricketts following up. # Hypokalemia - Replete today # Hypophosphatemia - Replete today # Diabetes Mellitus - Lantus 10 BID - Endocrinology following up appreciated. - Resolved hypoglycemia 03/06 # Loose stool - C diff negative 03/07 DVT and GI ppx Full code Subjective ROS Limited/Unobtainable: Yes Allergies: Coded Allergies: No Known Allergies (Unverified , 02/05/13) All Systems: reviewed and negative except above Objective Last 24 Hour Vital Signs Date Time Temp Pulse Resp B/P (MAP) Pulse Ox O2 Delivery O2 Flow Rate FiO2 03/09/19 14:00 136/79 03/09/19 12:59 92 20 100 T-Piece 6.0 28 03/09/19 12:53 100 T-Piece 8.0 30 03/09/19 12:53 90 20 99 T-Piece 6.0 28 03/09/19 12:00 98.8 94 20 136/79 (98) 99 03/09/19 12:00 T-piece T-piece 03/09/19 11:26 92 03/09/19 09:11 82 124/60 03/09/19 08:00 T-piece T-piece 03/09/19 08:00 98.9 82 20 124/60 (81) 99 03/09/19 07:49 82 03/09/19 07:32 82 22 100 T-Piece 6.0 28 03/09/19 07:27 81 22 100 T-Piece 8.0 30 03/09/19 07:26 100 T-Piece 8.0 30 03/09/19 07:25 82 22 100 T-Piece 6.0 28 03/09/19 06:00 83 23 164/64 (97) 100 03/09/19 05:49 172/55 03/09/19 05:48 172/55 03/09/19 05:00 83 23 157/63 (94) 100 03/09/19 04:30 83 23 157/63 (94) 100 03/09/19 04:00 98.9 83 24 172/66 (101) 99 03/09/19 04:00 85 03/09/19 04:00 T-piece T-piece 03/09/19 03:00 88 23 128/92 (104) 100 03/09/19 02:00 80 29 143/53 (83) 98 03/09/19 01:13 77 32 100 Trach Collar 6.0 28 03/09/19 01:01 100 T-Piece 8.0 30 03/09/19 01:01 76 30 100 Trach Collar 8.0 30 03/09/19 01:00 76 22 140/56 (84) 98 03/09/19 00:00 T-piece T-piece 03/09/19 00:00 74 03/09/19 00:00 99.1 75 27 145/56 (85) 100 03/08/19 23:00 73 25 141/53 (82) 99 03/08/19 22:00 79 25 135/53 (80) 98 03/08/19 21:46 141/61 03/08/19 21:46 141/61 03/08/19 21:00 77 30 153/61 (91) 100 03/08/19 20:00 77 30 141/56 (84) 97 03/08/19 20:00 T-piece T-piece 03/08/19 20:00 76 03/08/19 19:20 74 36 99 Trach Collar 8.0 30 03/08/19 19:10 73 22 98 Trach Collar 8.0 30 03/08/19 19:00 99.0 73 29 134/55 (81) 96 03/08/19 18:53 74 37 97 T-Piece 8.0 30 03/08/19 18:52 97 T-Piece 12.0 40 03/08/19 18:00 73 33 134/56 (82) 100 03/08/19 17:00 78 27 134/56 (82) 96 03/08/19 16:00 76 03/08/19 16:00 99.0 76 22 118/47 (70) 97 03/08/19 16:00 T-piece T-piece 03/08/19 15:00 75 34 125/48 (73) 96 Intake and Output 03/08/19 03/09/19 19:00 07:00 Intake Total 1272.666 ml 808 ml Output Total 1320 ml 1225 ml Balance -47.334 ml -417 ml Free Water 100 ml IV Total 576.666 ml 55 ml Tube Feeding 516 ml 473 ml Other 180 ml 180 ml Output Urine Total 1240 ml 1225 ml Stool Total 80 ml Laboratory Tests 03/09/19 04:00: White Blood Count 2.8L, Red Blood Count 2.90L, Hemoglobin 8.3L, Hematocrit 25.1L , Mean Corpuscular Volume 87, Mean Corpuscular Hemoglobin 28.5, Mean Corpuscular Hemoglobin Concent 32.9, Red Cell Distribution Width 15.7H, Platelet Count 104L, Mean Platelet Volume 6.0L, Neutrophils (%) (Auto) , Lymphocytes (%) (Auto) , Monocytes (%) (Auto) , Eosinophils (%) (Auto) , Basophils (%) (Auto) , Differential Total Cells Counted 100, Neutrophils % ( Manual) 53, Lymphocytes % (Manual) 32, Monocytes % (Manual) 12H, Eosinophils % ( Manual) 3, Basophils % (Manual) 0, Band Neutrophils 0, Platelet Estimate DecreasedL, Platelet Morphology Normal, Anisocytosis 1+, Sodium Level 138, Potassium Level 3.7, Chloride Level 100, Carbon Dioxide Level 32, Anion Gap 6, Blood Urea Nitrogen 21H, Creatinine 1.6H, Estimat Glomerular Filtration Rate 44.5, Glucose Level 195H, Calcium Level 8.5, Total Bilirubin 0.4, Aspartate Amino Transf (AST/SGOT) 37, Alanine Aminotransferase (ALT/SGPT) 45, Alkaline Phosphatase 164H, Total Protein 5.4L, Albumin 2.1L, Globulin 3.3, Albumin/ Globulin Ratio 0.6L 03/09/19 08:00: Vancomycin Level Trough 12.8H Height (Feet): 6 Height (Inches): 0.00 Weight (Pounds): 250 General Appearance: moderate distress EENT: PERRL/EOMI Neck: normal alignment Cardiovascular: normal rate, regular rhythm Respiratory/Chest: decreased breath sounds Abdomen: non tender 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
--- NOTE | 2019-03-09 15:00 | Geriatric Medicine Prog Note ---
DATE: 03/08/2019 SUBJECTIVE: The patient is tolerating GT feedings OBJECTIVE:BP 120/70.P80,R$20,T98 lRESP:Khushbu Shepherd INV:Glucose 179 ASSESSMENT:Diabetes Mellitus stable. PLANS:Sliding scale Novolog Q6hrs Reg Singh M.D. DR: LEWIS JOB#: [id number] CC: GEOFF
--- NOTE | 2019-03-09 15:03 | General Progress Note ---
Assessment/Plan Status: stable Assessment/Plan: 58 y Male admitted to the hospital due to fever, shortness of breath and chest pain. # Multilobar pneumonia in patient with HIV - Broad sp atbx started. Continue Zosyn, Vancomycin, Azithromycin, TM-SMX ( now prophylactic and completed course for PCP/PJ pnuemonia ) - Fluconazole per ID - Droplet precaution removed. - Flu swab negative - Oxygen support, ventilatory support as not able to wean off ventilator due to agitation. - ID consult appreciated. - T piece being tolerated and will transfer to [facility] when bed is available. # Hypoxemic respiratory failure - Critical care follow up. Unable to wean off the ventilator. Tracheostomy completed. - Due to pneumonia - Tolerating CPAP 03/06 # Chest pain - EKG with bifascicular block RBB and LAFB, no ST changes. - Trend troponin x3 completed - ECHO completed with no WMA and preserved EF. Dr. Francois consulted. Consideration for outpatient cath vs possibly myocarditis due to underlying viral infection. No evidence of Takotsubo per TTE. NOT a candidate for angiogram at this time. - NGT prn - Pain control with morphine # HIV - Continue HARRT - VL is undetectable per patient report. T cell count > 400 - CD 4 count 191 # HTN - Resume home medication - Clonidine, Isordil added. # [place] hyponatremia - Monitor - good response to NS # CKD 2-3 - Trend renal function - Worsening creatinine to 2.8 today. 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 Gasca for RN RADIATION if needed again in the future. Currently renal function stable and L femoral dialysis access removed. - R PICC done last week. # Failure to thrive and moderate protein caloric malnutrition - PEG 03/05 - Tube feeds started and tolerating - Dr. Ricketts following up. # Hypokalemia - Replete today # Hypophosphatemia - Replete today # Diabetes Mellitus - Lantus 10 BID - Endocrinology following up appreciated. - Resolved hypoglycemia 03/06 # Loose stool - C diff negative 03/07 DVT and GI ppx Full code Subjective Date patient seen: Mar 08, 2019 Time patient seen: 18:00 Allergies: Coded Allergies: No Known Allergies (Unverified , 02/05/13) All Systems: reviewed and negative except above Objective Last 24 Hour Vital Signs Date Time Temp Pulse Resp B/P (MAP) Pulse Ox O2 Delivery O2 Flow Rate FiO2 03/09/19 14:00 136/79 03/09/19 12:59 92 20 100 T-Piece 6.0 28 03/09/19 12:53 100 T-Piece 8.0 30 03/09/19 12:53 90 20 99 T-Piece 6.0 28 03/09/19 12:00 98.8 94 20 136/79 (98) 99 03/09/19 12:00 T-piece T-piece 03/09/19 11:26 92 03/09/19 09:11 82 124/60 03/09/19 08:00 T-piece T-piece 03/09/19 08:00 98.9 82 20 124/60 (81) 99 03/09/19 07:49 82 03/09/19 07:32 82 22 100 T-Piece 6.0 28 03/09/19 07:27 81 22 100 T-Piece 8.0 30 03/09/19 07:26 100 T-Piece 8.0 30 03/09/19 07:25 82 22 100 T-Piece 6.0 28 03/09/19 06:00 83 23 164/64 (97) 100 03/09/19 05:49 172/55 03/09/19 05:48 172/55 03/09/19 05:00 83 23 157/63 (94) 100 03/09/19 04:30 83 23 157/63 (94) 100 03/09/19 04:00 98.9 83 24 172/66 (101) 99 03/09/19 04:00 85 03/09/19 04:00 T-piece T-piece 03/09/19 03:00 88 23 128/92 (104) 100 03/09/19 02:00 80 29 143/53 (83) 98 03/09/19 01:13 77 32 100 Trach Collar 6.0 28 03/09/19 01:01 100 T-Piece 8.0 30 03/09/19 01:01 76 30 100 Trach Collar 8.0 30 03/09/19 01:00 76 22 140/56 (84) 98 03/09/19 00:00 T-piece T-piece 03/09/19 00:00 74 03/09/19 00:00 99.1 75 27 145/56 (85) 100 03/08/19 23:00 73 25 141/53 (82) 99 03/08/19 22:00 79 25 135/53 (80) 98 03/08/19 21:46 141/61 03/08/19 21:46 141/61 03/08/19 21:00 77 30 153/61 (91) 100 03/08/19 20:00 77 30 141/56 (84) 97 03/08/19 20:00 T-piece T-piece 03/08/19 20:00 76 03/08/19 19:20 74 36 99 Trach Collar 8.0 30 03/08/19 19:10 73 22 98 Trach Collar 8.0 30 03/08/19 19:00 99.0 73 29 134/55 (81) 96 03/08/19 18:53 74 37 97 T-Piece 8.0 30 03/08/19 18:52 97 T-Piece 12.0 40 03/08/19 18:00 73 33 134/56 (82) 100 03/08/19 17:00 78 27 134/56 (82) 96 03/08/19 16:00 76 03/08/19 16:00 99.0 76 22 118/47 (70) 97 03/08/19 16:00 T-piece T-piece Intake and Output 03/08/19 03/09/19 19:00 07:00 Intake Total 1272.666 ml 808 ml Output Total 1320 ml 1225 ml Balance -47.334 ml -417 ml Free Water 100 ml IV Total 576.666 ml 55 ml Tube Feeding 516 ml 473 ml Other 180 ml 180 ml Output Urine Total 1240 ml 1225 ml Stool Total 80 ml Laboratory Tests 03/09/19 04:00: White Blood Count 2.8L, Red Blood Count 2.90L, Hemoglobin 8.3L, Hematocrit 25.1L , Mean Corpuscular Volume 87, Mean Corpuscular Hemoglobin 28.5, Mean Corpuscular Hemoglobin Concent 32.9, Red Cell Distribution Width 15.7H, Platelet Count 104L, Mean Platelet Volume 6.0L, Neutrophils (%) (Auto) , Lymphocytes (%) (Auto) , Monocytes (%) (Auto) , Eosinophils (%) (Auto) , Basophils (%) (Auto) , Differential Total Cells Counted 100, Neutrophils % ( Manual) 53, Lymphocytes % (Manual) 32, Monocytes % (Manual) 12H, Eosinophils % ( Manual) 3, Basophils % (Manual) 0, Band Neutrophils 0, Platelet Estimate DecreasedL, Platelet Morphology Normal, Anisocytosis 1+, Sodium Level 138, Potassium Level 3.7, Chloride Level 100, Carbon Dioxide Level 32, Anion Gap 6, Blood Urea Nitrogen 21H, Creatinine 1.6H, Estimat Glomerular Filtration Rate 44.5, Glucose Level 195H, Calcium Level 8.5, Total Bilirubin 0.4, Aspartate Amino Transf (AST/SGOT) 37, Alanine Aminotransferase (ALT/SGPT) 45, Alkaline Phosphatase 164H, Total Protein 5.4L, Albumin 2.1L, Globulin 3.3, Albumin/ Globulin Ratio 0.6L 03/09/19 08:00: Vancomycin Level Trough 12.8H Height (Feet): 6 Height (Inches): 0.00 Weight (Pounds): 250 General Appearance: moderate distress EENT: PERRL/EOMI Neck: normal alignment Cardiovascular: normal rate Respiratory/Chest: decreased breath sounds Abdomen: hypoactive bowel sounds 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
--- NOTE | 2019-03-09 15:38 | Hematology/Onc Progress Note ---
Assessment/Plan Assessment/Plan ASSESSMENT AND RECS: # Pancytopenia with all three cell lines have, decreasing counts could also be due to underlying hiv meds, sepsis as well as HIV --> Anemia workup has been reviewed. Ferritin 182 --> Hep panel pending and HIV confirmed positive --> No evidence of hemolysis is noted, peripheral smear has been reviewed. --> Hgb goal >7. Transfuse prn. --> Epogen or iron at this time is not particularly indicated --> Medications have been reviewed --> Stool OB negative --> Blood tx: 1 unit on 02/10/19, --> off ASA, off heparin, off lovenox --> Hgb trend: 7.6-->8.2-->9.4-->8.4-->8.2 -->8.9-->10.3->7.9-->8.1->7.8-->8.7-- >8.4-->8.1-->7.9-->8.2-->7.6-->8.3 --> WBC 5-->4-->3.2-->3.1-->3.4-->2.8 --> Plt trend: 153-->257-->224-->205-->253-->310-->201->177-->115-->104-->100--> 106-->96k-->93k-->104 --> Transfuse if Plt < 20k and fever, or if Plt < 10k without fever --> WILLIAM screen negative # Multilobar pneumonia in patient with HIV. Recs per ID. --> Broad sp atbx started. Continue on abx as per id --> Droplet precaution # Hypoxemic respiratory failure. s/p trach --> Due to pneumonia, on abx --> pulm recs reviewed --> SBT as per pulm # Chest pain. Cardiology is following, appreciate recs --> EKG with bifascicular block RBB and LAFB, no ST changes --> Trend troponin x3 --> NGT prn # HIV. --> Continue HARRT --> VL is undetectable per patient report. # HTN --> Resume home medication # DVT and GI ppx The time the note is entered does not reflect the time the patient was examined. I greatly appreciate the consultation. Subjective Hematologic/Lymphatic: Reports: anemia Allergies: Coded Allergies: No Known Allergies (Unverified , 02/05/13) All Systems: reviewed and negative except above Subjective Subjective 02/11: Hgb yesterday was 7.6, s/p 1 unit prbc. Current hgb at 8.2. Pt attempted to pull out tubes per nursing team, soft restraints applied. 02/13: Pt in ICU and intubated. Pt currently sedated. Current hgb 9.4. 02/14: Pt remains in icu, sedated. Hgb stable. 02/15: Remains in icu, lethargic. No acute events. Hgb stable. 02/16: Remains in icu. CXR today shows worsening CHF/pulmonary edema. Pt wake and sedation decrease for weaning. 02/18: Remains in icu. Pt on vent. CXR today shows pulmonary edema, persistent small left pleural effusion. 02/19: Remains in the icu, now extubated, seen by pulm, labs reviewed 02/20: Remains in ICU, Pt intubated, CXR today shows Congestive heart failure with interval worsening 02/21: reintubated, tolerating vent well, seen by pulm/cc 02/23: pt remains on fently gtt, prn ativan, currenlty intubated on vent, no further bleeding, d/w RN> 02/24:failed weaning, fentanyl drip decreased. 02/25:pt seen in am,sedated. 02/27: remains intubated, may need trach, no bleeding today 02/28: tolerated cpap, now back on vent, no bleeding off asa/lovenox 03/01: fentanyl gtt is now off, remains in icu, dw rn 03/02: to get trach today, at approx 12, no events, labs somewhat lower 03/03: still confused on exam, d/w rn, no events, on fentanyl gtt 03/05: to get peg tomorrow, no f/c 03/06: received peg yesterday, tolerating tfs well, no f/c, labs reviewed 03/07: remains in icu, trach collar, liana pulm, no f/c 03/08: seen by neuro, no bleeding, no f/c, seen by pulm/cc, neuro 03/09: transferred to [facility], on t-piece, on abx, labs reviewed. Objective Objective Current Medications Medications (Trade) Dose Ordered Sig/Marquis Route PRN Reason Start Time Stop Time Status Last Admin Dose Admin Acetaminophen/ Butalbital/ Caffeine (Fioricet) 1 tab Q8H PRN ORAL For Headache 03/09/19 09:15 03/10/19 17:14 Albuterol/ Ipratropium (Albuterol/ Ipratropium) 3 ml Q6HRT HHN 03/09/19 07:00 03/13/19 19:14 03/09/19 12:53 Amlodipine Besylate (Norvasc) 10 mg DAILY NG 03/09/19 09:00 03/14/19 15:59 03/09/19 09:11 Artificial Tears (Lacri-Lube) 1 applic AC+HS BOTH EYES 03/09/19 11:30 03/20/19 06:29 03/09/19 12:04 Bisacodyl (Dulcolax) 5 mg DAILYPRN PRN ORAL Constipation 03/09/19 07:30 03/10/19 07:29 Chlorhexidine Gluconate (Jessy-Hex 2%) 1 applic DAILY@2000 TOPIC 03/09/19 20:00 03/27/19 19:59 Clonidine HCl (Catapres tab) 0.2 mg EVERY 8 HOURS NG 03/09/19 14:00 03/19/19 13:59 Dextrose (Dextrose 50%) 25 ml Q30M PRN IV Hypoglycemia 03/09/19 07:15 03/31/19 07:14 Dextrose (Dextrose 50%) 50 ml Q30M PRN IV Hypoglycemia 03/09/19 07:15 03/31/19 07:14 Docusate Sodium (Colace) 100 mg TID GT 03/09/19 09:00 03/12/19 08:59 Fluconazole/ Sodium Chloride 100 ml @ 100 mls/hr Q24H IV 03/09/19 18:00 03/15/19 17:59 Heparin Sodium (Porcine) (Heparin 5000 units/ml) 5,000 units EVERY 12 HOURS SUBQ 03/09/19 09:00 04/05/19 20:59 03/09/19 09:22 Hydralazine HCl (Apresoline) 10 mg Q4H PRN IV bp over 165 syst 03/09/19 08:00 03/19/19 07:59 Hydralazine HCl (Apresoline) 50 mg Q8HR NG 03/09/19 14:00 03/21/19 21:59 Insulin Aspart (NovoLOG) EVERY 6 HOURS SUBQ 03/09/19 12:00 03/28/19 11:59 03/09/19 12:06 Insulin Detemir (Levemir) 10 units Q12HR SUBQ 03/09/19 09:00 04/01/19 20:59 Lorazepam (Ativan 2mg/ml 1ml) 2 mg Q2H PRN IV For Anxiety 03/09/19 07:45 03/13/19 19:44 03/09/19 12:23 Meropenem 1 gm/ Sodium Chloride 55 ml @ 110 mls/hr Q12HR IVPB 03/09/19 09:00 03/11/19 20:59 03/09/19 09:12 Metoclopramide HCl (Reglan) 5 mg Q8H IVP 03/09/19 09:00 03/28/19 08:59 03/09/19 09:11 Metolazone (Zaroxolyn) 10 mg DAILY NG 03/09/19 09:00 03/21/19 09:59 03/09/19 09:34 Midazolam HCl (Versed 2mg/2ml vial) 1 mg Q2H PRN IVP Agitation 03/09/19 08:00 03/15/19 07:59 Pantoprazole (Protonix) 40 mg DAILY IVP 03/09/19 09:00 03/24/19 20:59 03/09/19 09:12 Patient Own Medication (Patient's Own Med) 1 ea BID ORAL 03/09/19 09:00 04/08/19 08:59 03/09/19 09:13 Patient Own Medication (Patient's Own Med) 1 ea DAILY ORAL 03/09/19 09:00 04/08/19 08:59 03/09/19 09:14 Patient Own Medication (Patient's Own Med) 2 ea DAILY ORAL 03/09/19 09:00 04/08/19 08:59 03/09/19 09:14 Quetiapine Fumarate (SEROquel) 25 mg Q12HR ORAL 03/09/19 09:00 04/07/19 20:59 03/09/19 09:12 Sennosides (Senokot) 8.6 mg DAILY ORAL 03/09/19 09:00 03/15/19 11:59 Trimethoprim/ Sulfamethoxazole (Bactrim-DS) 1 tab DAILY ORAL 03/09/19 09:00 03/11/19 08:59 03/09/19 09:12 Vancomycin HCl (Vanco rx to dose) 1 ea DAILY PRN MISC Per rx protocol 03/09/19 09:00 04/02/19 10:59 Vancomycin HCl 1.5 gm/Sodium Chloride 275 ml @ 137.5 mls/ hr Q24H IVPB 03/10/19 08:00 03/15/19 07:59 Last 24 Hour Vital Signs Date Time Temp Pulse Resp B/P (MAP) Pulse Ox O2 Delivery O2 Flow Rate FiO2 03/09/19 14:00 136/79 03/09/19 12:59 92 20 100 T-Piece 6.0 03/09/19 12:53 100 T-Piece 8.0 30 03/09/19 12:53 90 20 99 T-Piece 6.0 03/09/19 12:00 98.8 94 20 136/79 (98) 99 03/09/19 12:00 T-piece T-piece 03/09/19 11:26 92 03/09/19 09:11 82 124/60 03/09/19 08:00 T-piece T-piece 03/09/19 08:00 98.9 82 20 124/60 (81) 99 03/09/19 07:49 82 03/09/19 07:32 82 22 100 T-Piece 6.0 28 03/09/19 07:27 81 22 100 T-Piece 8.0 30 03/09/19 07:26 100 T-Piece 8.0 30 03/09/19 07:25 82 22 100 T-Piece 6.0 28 03/09/19 06:00 83 23 164/64 (97) 100 03/09/19 05:49 172/55 03/09/19 05:48 172/55 03/09/19 05:00 83 23 157/63 (94) 100 03/09/19 04:30 83 23 157/63 (94) 100 03/09/19 04:00 98.9 83 24 172/66 (101) 99 03/09/19 04:00 85 03/09/19 04:00 T-piece T-piece 03/09/19 03:00 88 23 128/92 (104) 100 03/09/19 02:00 80 29 143/53 (83) 98 03/09/19 01:13 77 32 100 Trach Collar 6.0 28 03/09/19 01:01 100 T-Piece 8.0 30 03/09/19 01:01 76 30 100 Trach Collar 8.0 30 03/09/19 01:00 76 22 140/56 (84) 98 03/09/19 00:00 T-piece T-piece 03/09/19 00:00 74 03/09/19 00:00 99.1 75 27 145/56 (85) 100 03/08/19 23:00 73 25 141/53 (82) 99 03/08/19 22:00 79 25 135/53 (80) 98 03/08/19 21:46 141/61 03/08/19 21:46 141/61 03/08/19 21:00 77 30 153/61 (91) 100 03/08/19 20:00 77 30 141/56 (84) 97 03/08/19 20:00 T-piece T-piece 03/08/19 20:00 76 03/08/19 19:20 74 36 99 Trach Collar 8.0 30 03/08/19 19:10 73 22 98 Trach Collar 8.0 30 03/08/19 19:00 99.0 73 29 134/55 (81) 96 03/08/19 18:53 74 37 97 T-Piece 8.0 30 03/08/19 18:52 97 T-Piece 12.0 40 03/08/19 18:00 73 33 134/56 (82) 100 03/08/19 17:00 78 27 134/56 (82) 96 03/08/19 16:00 76 03/08/19 16:00 99.0 76 22 118/47 (70) 97 03/08/19 16:00 T-piece T-piece 03/08/19 15:00 75 34 125/48 (73) 96 03/08/19 14:23 133/47 03/08/19 14:22 133/47 03/08/19 14:00 77 32 133/47 (75) 98 03/08/19 13:02 76 20 99 Trach Collar 8.0 30 03/08/19 13:00 98.8 77 29 132/47 (75) 99 03/08/19 12:46 100 T-Piece 12.0 40 03/08/19 12:46 76 20 100 Trach Collar 12.0 40 03/08/19 12:00 75 26 140/52 (81) 100 03/08/19 12:00 76 03/08/19 12:00 T-piece T-piece 03/08/19 11:00 74 26 134/53 (80) 100 03/08/19 10:00 81 27 130/52 (78) 99 03/08/19 09:29 84 147/63 03/08/19 09:28 84 147/63 03/08/19 09:00 100.2 86 26 147/63 (91) 100 03/08/19 08:00 T-piece T-piece 03/08/19 08:00 84 03/08/19 08:00 79 26 140/51 (80) 99 03/08/19 07:09 74 24 100 Trach Collar 12.0 40 03/08/19 07:05 77 24 100 T-Piece 12.0 40 03/08/19 07:04 78 24 100 Trach Collar 12.0 40 03/08/19 07:03 100 T-Piece 12.0 40 03/08/19 07:00 78 30 142/51 (81) 100 03/08/19 06:00 74 28 131/50 (77) 100 03/08/19 05:33 139/52 03/08/19 05:33 139/52 03/08/19 05:00 78 24 139/52 (81) 100 03/08/19 04:00 77 03/08/19 04:00 Mechanical Ventilator Mechanical Ventilator 03/08/19 04:00 98.2 77 23 143/53 (83) 98 03/08/19 03:00 91 28 149/59 (89) 03/08/19 02:00 77 23 133/54 (80) 99 03/08/19 01:00 76 27 120/53 (75) 99 03/08/19 00:58 77 30 100 Trach Collar 12.0 40 03/08/19 00:48 100 Trach Collar 12.0 40 03/08/19 00:48 77 26 100 Trach Collar 12.0 40 03/08/19 00:04 Mechanical Ventilator Mechanical Ventilator 03/08/19 00:00 98.2 76 23 136/54 (81) 99 03/08/19 00:00 76 03/07/19 23:00 76 27 121/54 (76) 100 03/07/19 22:00 78 21 139/53 (81) 98 03/07/19 21:54 135/55 03/07/19 21:54 135/55 03/07/19 21:00 97 24 143/71 (95) 99 03/07/19 20:42 84 128/52 03/07/19 20:00 84 03/07/19 20:00 Mechanical Ventilator Mechanical Ventilator 03/07/19 20:00 99.2 82 24 133/71 (91) 98 03/07/19 19:12 83 24 100 Trach Collar 12.0 40 03/07/19 19:02 100 Trach Collar 12.0 40 03/07/19 19:02 82 22 100 Trach Collar 12.0 40 03/07/19 19:02 82 22 100 Trach Collar 12.0 40 03/07/19 19:00 82 23 122/49 (73) 98 03/07/19 18:30 103 21 158/64 (95) 93 03/07/19 18:00 T-piece 03/07/19 18:00 88 23 146/51 (82) 98 03/07/19 17:30 84 23 141/63 (89) 100 03/07/19 17:30 T-piece 03/07/19 17:00 T-piece 03/07/19 17:00 80 24 128/55 (79) 100 03/07/19 16:34 T-piece 03/07/19 16:00 99.5 80 18 131/50 (77) 100 03/07/19 16:00 40 03/07/19 16:00 T-piece 03/07/19 16:00 T-piece T-piece 03/07/19 16:00 78 Intake and Output 03/08/19 03/09/19 19:00 07:00 Intake Total 1272.666 ml 808 ml Output Total 1320 ml 1225 ml Balance -47.334 ml -417 ml Free Water 100 ml IV Total 576.666 ml 55 ml Tube Feeding 516 ml 473 ml Other 180 ml 180 ml Output Urine Total 1240 ml 1225 ml Stool Total 80 ml Labs Test 03/07/19 04:20 03/07/19 07:34 03/08/19 04:00 03/09/19 04:00 White Blood Count 2.7 K/UL (4.8-10.8) 2.5 K/UL (4.8-10.8) 2.8 K/UL (4.8-10.8) Red Blood Count 2.88 M/UL (4.70-6.10) 2.63 M/UL (4.70-6.10) 2.90 M/UL (4.70-6.10) Hemoglobin 8.3 G/DL (14.2-18.0) 7.6 G/DL (14.2-18.0) 8.3 G/DL (14.2-18.0) Hematocrit 25.0 % (42.0-52.0) 22.9 % (42.0-52.0) 25.1 % (42.0-52.0) Mean Corpuscular Volume 87 FL (80-99) 87 FL (80-99) 87 FL (80-99) Mean Corpuscular Hemoglobin 28.7 PG (27.0-31.0) 29.0 PG (27.0-31.0) 28.5 PG (27.0-31.0) Mean Corpuscular Hemoglobin Concent 33.1 G/DL (32.0-36.0) 33.2 G/DL (32.0-36.0) 32.9 G/DL (32.0-36.0) Red Cell Distribution Width 16.2 % (11.6-14.8) 15.7 % (11.6-14.8) 15.7 % (11.6-14.8) Platelet Count 94 K/UL (150-450) 93 K/UL (150-450) 104 K/UL (150-450) Mean Platelet Volume 6.3 FL (6.5-10.1) 6.4 FL (6.5-10.1) 6.0 FL (6.5-10.1) Neutrophils (%) (Auto) % (45.0-75.0) % (45.0-75.0) % (45.0-75.0) Lymphocytes (%) (Auto) % (20.0-45.0) % (20.0-45.0) % (20.0-45.0) Monocytes (%) (Auto) % (1.0-10.0) % (1.0-10.0) % (1.0-10.0) Eosinophils (%) (Auto) % (0.0-3.0) % (0.0-3.0) % (0.0-3.0) Basophils (%) (Auto) % (0.0-2.0) % (0.0-2.0) % (0.0-2.0) Differential Total Cells Counted 100 100 100 Neutrophils % (Manual) 42 % (45-75) 50 % (45-75) 53 % (45-75) Lymphocytes % (Manual) 42 % (20-45) 34 % (20-45) 32 % (20-45) Monocytes % (Manual) 11 % (1-10) 13 % (1-10) 12 % (1-10) Eosinophils % (Manual) 5 % (0-3) 2 % (0-3) 3 % (0-3) Basophils % (Manual) 0 % (0-2) 1 % (0-2) 0 % (0-2) Band Neutrophils 0 % (0-8) 0 % (0-8) 0 % (0-8) Platelet Estimate Decreased Decreased Decreased Platelet Morphology Normal Normal Normal Anisocytosis 1+ 1+ 1+ Sodium Level 136 MMOL/L (136-145) 136 MMOL/L (136-145) 138 MMOL/L (136-145) Potassium Level 3.6 MMOL/L (3.5-5.1) 3.9 MMOL/L (3.5-5.1) 3.7 MMOL/L (3.5-5.1) Chloride Level 100 MMOL/L (98-107) 100 MMOL/L (98-107) 100 MMOL/L (98-107) Carbon Dioxide Level 31 MMOL/L (21-32) 32 MMOL/L (21-32) 32 MMOL/L (21-32) Anion Gap 5 mmol/L (5-15) 4 mmol/L (5-15) 6 mmol/L (5-15) Blood Urea Nitrogen 25 mg/dL (7-18) 24 mg/dL (7-18) 21 mg/dL (7-18) Creatinine 1.8 MG/DL (0.55-1.30) 1.6 MG/DL (0.55-1.30) 1.6 MG/DL (0.55-1.30) Estimat Glomerular Filtration Rate 38.8 mL/min (>60) 44.5 mL/min (>60) 44.5 mL/min (>60) Glucose Level 148 MG/DL (74-106) 156 MG/DL (74-106) 195 MG/DL (74-106) Calcium Level 8.4 MG/DL (8.5-10.1) 8.4 MG/DL (8.5-10.1) 8.5 MG/DL (8.5-10.1) Phosphorus Level 2.1 MG/DL (2.5-4.9) 2.8 MG/DL (2.5-4.9) Magnesium Level 1.6 MG/DL (1.8-2.4) 2.0 MG/DL (1.8-2.4) Total Bilirubin 0.5 MG/DL (0.2-1.0) 0.5 MG/DL (0.2-1.0) 0.4 MG/DL (0.2-1.0) Aspartate Amino Transf (AST/SGOT) 41 U/L (15-37) 38 U/L (15-37) 37 U/L (15-37) Alanine Aminotransferase (ALT/SGPT) 50 U/L (12-78) 45 U/L (12-78) 45 U/L (12-78) Alkaline Phosphatase 137 U/L (46-116) 144 U/L (46-116) 164 U/L (46-116) Total Protein 5.2 G/DL (6.4-8.2) 5.0 G/DL (6.4-8.2) 5.4 G/DL (6.4-8.2) Albumin 2.0 G/DL (3.4-5.0) 2.0 G/DL (3.4-5.0) 2.1 G/DL (3.4-5.0) Globulin 3.2 g/dL 3.0 g/dL 3.3 g/dL Albumin/Globulin Ratio 0.6 (1.0-2.7) 0.7 (1.0-2.7) 0.6 (1.0-2.7) Vancomycin Level Trough 8.1 ug/mL (5.0-12.0) Hypochromasia 3+ Spherocytes 2+ Test 03/09/19 08:00 Vancomycin Level Trough 12.8 ug/mL (5.0-12.0) Height (Feet): 6 Height (Inches): 0.00 Weight (Pounds): 250 Objective PHYSICAL EXAMINATION: GENERAL: NAD VITAL SIGNS: Have been reviewed. HEAD AND NECK: Shows no JVD. NG+, trach ++++ vent+ LUNGS: Coarse rhonchi. CARDIOVASCULAR: Shows regular S1 and S2 with no gallop or murmur. ABDOMEN: Soft. ++ peg EXTREMITIES: No pitting edema. Chan Hernandez MD Mar 09, 2019 15:38
--- NOTE | 2019-03-09 18:00 | NUR ---
NURSE NOTES: Isentress due non admin at this time. PM Dose given with Am dose today.
--- NOTE | 2019-03-09 18:48 | Pulmonology Progress Note ---
Assessment/Plan Assessment/Plan Assessment/Plan: VDRF, extubated 02/19, re-intubated 02/20, trach 03/02, trach collar 03/07 S/P GT 03/05 Hemoptysis, hematemesis ARDS Acute respiratory failure B pulmonary infiltrates, ? multilobar CAP vs atypical infection vs other ? PJP AIDS (CD4 191) NSTEMI H/O prior CVA HTN HL DM with uncontrolled BS ISH on CKD Anemia, FOBT + PLAN: TC as able, return to vent if fatigues RTC and PRN HHN's Continue Abx & flucon per ID Off steroids Monitor volumes and renal function, cautious diuresis as able F/U cards recs: will need further ischemia eval/cath once stabilized DVT Px: Hep SQ Monitor for bleeding, F/U GI recs, transfuse PRN Hb < 7 F/U ENDO recs TF's FC, continue to discuss GOC Monitor MS D/W RN and RT @ bedside CCT 35 Subjective Allergies: Coded Allergies: No Known Allergies (Unverified , 02/05/13) Subjective TTF, AFVSS on TC, celestino TFs, no distress, no cough, no SOB, no FC Objective Last 24 Hour Vital Signs Date Time Temp Pulse Resp B/P (MAP) Pulse Ox O2 Delivery O2 Flow Rate FiO2 03/09/19 16:00 85 03/09/19 16:00 T-piece T-piece 03/09/19 16:00 98.7 92 20 144/76 (98) 98 03/09/19 14:00 136/79 03/09/19 12:59 92 20 100 T-Piece 6.0 28 03/09/19 12:53 100 T-Piece 8.0 30 03/09/19 12:53 90 20 99 T-Piece 6.0 28 03/09/19 12:00 98.8 94 20 136/79 (98) 99 03/09/19 12:00 T-piece T-piece 03/09/19 11:26 92 03/09/19 09:11 82 124/60 03/09/19 08:00 T-piece T-piece 03/09/19 08:00 98.9 82 20 124/60 (81) 99 03/09/19 07:49 82 03/09/19 07:32 82 22 100 T-Piece 6.0 28 03/09/19 07:27 81 22 100 T-Piece 8.0 30 03/09/19 07:26 100 T-Piece 8.0 30 03/09/19 07:25 82 22 100 T-Piece 6.0 28 03/09/19 06:00 83 23 164/64 (97) 100 03/09/19 05:49 172/55 03/09/19 05:48 172/55 03/09/19 05:00 83 23 157/63 (94) 100 03/09/19 04:30 83 23 157/63 (94) 100 03/09/19 04:00 98.9 83 24 172/66 (101) 99 03/09/19 04:00 85 03/09/19 04:00 T-piece T-piece 03/09/19 03:00 88 23 128/92 (104) 100 03/09/19 02:00 80 29 143/53 (83) 98 03/09/19 01:13 77 32 100 Trach Collar 6.0 28 03/09/19 01:01 100 T-Piece 8.0 30 03/09/19 01:01 76 30 100 Trach Collar 8.0 30 03/09/19 01:00 76 22 140/56 (84) 98 03/09/19 00:00 T-piece T-piece 03/09/19 00:00 74 03/09/19 00:00 99.1 75 27 145/56 (85) 100 03/08/19 23:00 73 25 141/53 (82) 99 03/08/19 22:00 79 25 135/53 (80) 98 03/08/19 21:46 141/61 03/08/19 21:46 141/61 03/08/19 21:00 77 30 153/61 (91) 100 03/08/19 20:00 77 30 141/56 (84) 97 03/08/19 20:00 T-piece T-piece 03/08/19 20:00 76 03/08/19 19:20 74 36 99 Trach Collar 8.0 30 03/08/19 19:10 73 22 98 Trach Collar 8.0 30 03/08/19 19:00 99.0 73 29 134/55 (81) 96 03/08/19 18:53 74 37 97 T-Piece 8.0 30 03/08/19 18:52 97 T-Piece 12.0 40 Intake and Output 03/08/19 03/09/19 19:00 07:00 Intake Total 1272.666 ml 808 ml Output Total 1320 ml 1225 ml Balance -47.334 ml -417 ml Free Water 100 ml IV Total 576.666 ml 55 ml Tube Feeding 516 ml 473 ml Other 180 ml 180 ml Output Urine Total 1240 ml 1225 ml Stool Total 80 ml General Appearance: no acute distress, other - confused HEENT: normocephalic, atraumatic, anicteric, mucous membranes moist Respiratory/Chest: chest wall non-tender, rhonchi Cardiovascular: normal peripheral pulses, normal rate, regular rhythm Abdomen: normal bowel sounds, soft, non tender, no organomegaly, non distended Extremities: no clubbing, other - trace edema Laboratory Tests 03/09/19 04:00: White Blood Count 2.8L, Red Blood Count 2.90L, Hemoglobin 8.3L, Hematocrit 25.1L , Mean Corpuscular Volume 87, Mean Corpuscular Hemoglobin 28.5, Mean Corpuscular Hemoglobin Concent 32.9, Red Cell Distribution Width 15.7H, Platelet Count 104L, Mean Platelet Volume 6.0L, Neutrophils (%) (Auto) , Lymphocytes (%) (Auto) , Monocytes (%) (Auto) , Eosinophils (%) (Auto) , Basophils (%) (Auto) , Differential Total Cells Counted 100, Neutrophils % ( Manual) 53, Lymphocytes % (Manual) 32, Monocytes % (Manual) 12H, Eosinophils % ( Manual) 3, Basophils % (Manual) 0, Band Neutrophils 0, Platelet Estimate DecreasedL, Platelet Morphology Normal, Anisocytosis 1+, Sodium Level 138, Potassium Level 3.7, Chloride Level 100, Carbon Dioxide Level 32, Anion Gap 6, Blood Urea Nitrogen 21H, Creatinine 1.6H, Estimat Glomerular Filtration Rate 44.5, Glucose Level 195H, Calcium Level 8.5, Total Bilirubin 0.4, Aspartate Amino Transf (AST/SGOT) 37, Alanine Aminotransferase (ALT/SGPT) 45, Alkaline Phosphatase 164H, Total Protein 5.4L, Albumin 2.1L, Globulin 3.3, Albumin/ Globulin Ratio 0.6L 03/09/19 08:00: Vancomycin Level Trough 12.8H Current Medications Medications (Trade) Dose Ordered Sig/Marquis Route PRN Reason Start Time Stop Time Status Last Admin Dose Admin Acetaminophen/ Butalbital/ Caffeine (Fioricet) 1 tab Q8H PRN ORAL For Headache 03/09/19 15:42 04/08/19 15:41 Albuterol/ Ipratropium (Albuterol/ Ipratropium) 3 ml Q6HRT HHN 03/09/19 07:00 03/13/19 19:14 03/09/19 12:53 Amlodipine Besylate (Norvasc) 10 mg DAILY NG 03/09/19 09:00 03/14/19 15:59 03/09/19 09:11 Artificial Tears (Lacri-Lube) 1 applic AC+HS BOTH EYES 03/09/19 11:30 03/20/19 06:29 03/09/19 18:26 Bisacodyl (Dulcolax) 5 mg DAILYPRN PRN ORAL Constipation 03/09/19 07:30 03/10/19 07:29 Chlorhexidine Gluconate (Jessy-Hex 2%) 1 applic DAILY@2000 TOPIC 03/09/19 20:00 03/27/19 19:59 Clonidine HCl (Catapres tab) 0.2 mg EVERY 8 HOURS NG 03/09/19 14:00 03/19/19 13:59 Dextrose (Dextrose 50%) 25 ml Q30M PRN IV Hypoglycemia 03/09/19 07:15 03/31/19 07:14 Dextrose (Dextrose 50%) 50 ml Q30M PRN IV Hypoglycemia 03/09/19 07:15 03/31/19 07:14 Docusate Sodium (Colace) 100 mg TID GT 03/09/19 09:00 03/12/19 08:59 Fluconazole/ Sodium Chloride 100 ml @ 100 mls/hr Q24H IV 03/09/19 18:00 03/15/19 17:59 Heparin Sodium (Porcine) (Heparin 5000 units/ml) 5,000 units EVERY 12 HOURS SUBQ 03/09/19 09:00 04/05/19 20:59 03/09/19 09:22 Hydralazine HCl (Apresoline) 10 mg Q4H PRN IV bp over 165 syst 03/09/19 08:00 03/19/19 07:59 Hydralazine HCl (Apresoline) 50 mg Q8HR NG 03/09/19 14:00 03/21/19 21:59 Insulin Aspart (NovoLOG) EVERY 6 HOURS SUBQ 03/09/19 12:00 03/28/19 11:59 03/09/19 18:26 Insulin Detemir (Levemir) 10 units Q12HR SUBQ 03/09/19 09:00 04/01/19 20:59 Lorazepam (Ativan 2mg/ml 1ml) 2 mg Q2H PRN IV For Anxiety 03/09/19 07:45 03/13/19 19:44 03/09/19 12:23 Meropenem 1 gm/ Sodium Chloride 55 ml @ 110 mls/hr Q12HR IVPB 03/09/19 09:00 03/11/19 20:59 03/09/19 09:12 Metoclopramide HCl (Reglan) 5 mg Q8H IVP 03/09/19 09:00 03/28/19 08:59 03/09/19 09:11 Metolazone (Zaroxolyn) 10 mg DAILY NG 03/09/19 09:00 03/21/19 09:59 03/09/19 09:34 Midazolam HCl (Versed 2mg/2ml vial) 1 mg Q2H PRN IVP Agitation 03/09/19 08:00 03/15/19 07:59 Pantoprazole (Protonix) 40 mg DAILY IVP 03/09/19 09:00 03/24/19 20:59 03/09/19 09:12 Patient Own Medication (Patient's Own Med) 1 ea BID ORAL 03/09/19 09:00 04/08/19 08:59 03/09/19 09:13 Patient Own Medication (Patient's Own Med) 1 ea DAILY ORAL 03/09/19 09:00 04/08/19 08:59 03/09/19 09:14 Patient Own Medication (Patient's Own Med) 2 ea DAILY ORAL 03/09/19 09:00 04/08/19 08:59 03/09/19 09:14 Quetiapine Fumarate (SEROquel) 25 mg Q12HR ORAL 03/09/19 09:00 04/07/19 20:59 03/09/19 09:12 Sennosides (Senokot) 8.6 mg DAILY ORAL 03/09/19 09:00 03/15/19 11:59 Trimethoprim/ Sulfamethoxazole (Bactrim-DS) 1 tab DAILY ORAL 03/09/19 09:00 03/11/19 08:59 03/09/19 09:12 Vancomycin HCl (Vanco rx to dose) 1 ea DAILY PRN MISC Per rx protocol 03/09/19 09:00 04/02/19 10:59 Vancomycin HCl 1.5 gm/Sodium Chloride 275 ml @ 137.5 mls/ hr Q24H IVPB 03/10/19 08:00 03/15/19 07:59 Brett Meredith MD Mar 09, 2019 18:47
--- NOTE | 2019-03-09 19:25 | NUR ---
HAND-OFF: Report given to TESSA Krishnan.
--- NOTE | 2019-03-09 19:27 | Neurology Progress Note ---
Interim History Interim History ROS Limited/Unobtainable: Yes Complaints: AMS Interim History out of icu now, more alert interacting Objective Physical Exam Last Vital Signs Date Time Temp Pulse Resp B/P (MAP) Pulse Ox O2 Delivery O2 Flow Rate FiO2 03/09/19 16:00 85 03/09/19 16:00 T-piece T-piece 03/09/19 16:00 98.7 20 144/76 (98) 98 03/09/19 12:59 6.0 28 Laboratory Tests Test 03/09/19 04:00 03/09/19 08:00 White Blood Count 2.8 K/UL (4.8-10.8) L Red Blood Count 2.90 M/UL (4.70-6.10) L Hemoglobin 8.3 G/DL (14.2-18.0) L Hematocrit 25.1 % (42.0-52.0) L Mean Corpuscular Volume 87 FL (80-99) Mean Corpuscular Hemoglobin 28.5 PG (27.0-31.0) Mean Corpuscular Hemoglobin Concent 32.9 G/DL (32.0-36.0) Red Cell Distribution Width 15.7 % (11.6-14.8) H Platelet Count 104 K/UL (150-450) L Mean Platelet Volume 6.0 FL (6.5-10.1) L Neutrophils (%) (Auto) % (45.0-75.0) Lymphocytes (%) (Auto) % (20.0-45.0) Monocytes (%) (Auto) % (1.0-10.0) Eosinophils (%) (Auto) % (0.0-3.0) Basophils (%) (Auto) % (0.0-2.0) Differential Total Cells Counted 100 Neutrophils % (Manual) 53 % (45-75) Lymphocytes % (Manual) 32 % (20-45) Monocytes % (Manual) 12 % (1-10) H Eosinophils % (Manual) 3 % (0-3) Basophils % (Manual) 0 % (0-2) Band Neutrophils 0 % (0-8) Platelet Estimate Decreased L Platelet Morphology Normal Anisocytosis 1+ Sodium Level 138 MMOL/L (136-145) Potassium Level 3.7 MMOL/L (3.5-5.1) Chloride Level 100 MMOL/L (98-107) Carbon Dioxide Level 32 MMOL/L (21-32) Anion Gap 6 mmol/L (5-15) Blood Urea Nitrogen 21 mg/dL (7-18) H Creatinine 1.6 MG/DL (0.55-1.30) H Estimat Glomerular Filtration Rate 44.5 mL/min (>60) Glucose Level 195 MG/DL (74-106) H Calcium Level 8.5 MG/DL (8.5-10.1) Total Bilirubin 0.4 MG/DL (0.2-1.0) Aspartate Amino Transf (AST/SGOT) 37 U/L (15-37) Alanine Aminotransferase (ALT/SGPT) 45 U/L (12-78) Alkaline Phosphatase 164 U/L (46-116) H Total Protein 5.4 G/DL (6.4-8.2) L Albumin 2.1 G/DL (3.4-5.0) L Globulin 3.3 g/dL Albumin/Globulin Ratio 0.6 (1.0-2.7) L Vancomycin Level Trough 12.8 ug/mL (5.0-12.0) H General: well developed, well nourished, other Head: normocophalic, other Neck: no rigidity EENT: benign, other Neurologic Exam Mental Status: awake, other Speech: other Language: other Cranial Nerve II: other Cranial Nerves III, IV, : other Cranial Nerve V: other Cranial Nerve VII: other Cranial Nerve VIII: other Cranial Nerve IX: other Cranial Nerve X: other Cranial Nerve XI: other Cranial Nerve XII: other Motor System: other Sensory: other Coordination: other Deep Tendon Reflexes: 0 bicep (L), 0 bicep (R), 0 tricep (L), 0 tricep (R), 0 brachioradialis (L), 0 brachioradialis (R), 0 knee (L), 0 knee (R), 0 ankle (L) , 0 ankle (R) Reflexes: mute plantar (L), mute plantar (R) Stance: other Gait: other Objective sp trach awake, can tell me his name pupils are symmetric and reactive corneals present Antigravity in all 4 symmetric Impression/Recommendations Problems: (1) AIDS (2) Anemia (3) Anxiety (4) Diabetes (5) Hypertension (6) HIV disease (7) CKD (chronic kidney disease) (8) History of stroke (9) NSTEMI (non-ST elevated myocardial infarction) (10) MDD (major depressive disorder), recurrent episode, moderate (11) Respiratory distress (12) Hypoxia (13) HIV (human immunodeficiency virus infection) (14) Acute coronary syndrome (15) Elevated troponin (16) Pneumonia (17) Acute hypoxemic respiratory failure (18) Endotracheally intubated (19) ISH (acute kidney injury) (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 (33) acute small R pontomedullary and left cerebellar peduncle strokes. (34) r/o cerebellar stroke (35) acute ischemic EDUCATIONAL TECHNOLOGY SPECIALIST stroke, bylateral (36) Bylateral EDUCATIONAL TECHNOLOGY SPECIALIST severe stenosis (37) Chemosis of conjunctiva of both eyes (38) Respiratory failure Status: stable Recommendations monitor neuro status vent management per icu map > 65 no focal neuro exam - monitor Follow commands Wean off vent Mayito Escobar MD Mar 09, 2019 19:27
--- NOTE | 2019-03-09 19:30 | NUR ---
NURSE NOTES: BEDSIDE REPORT RECEIVED FROM TESSA HANEY. PT IS NONVERBAL AT THIS TIME, NOT ABLE TO FOLLOW COMMANDS, LETHARGIC. HOME CARE MANAGER RN SHOWING NSR. T-PIECE, SHILEY 8, 28%. CGT GLUCERNA 1.5 @ [address] RECTAL TUBE IN PL[address] FOR DIARRHEA; DRAINING. SKIN IS CLEAN, DRY, DRESSINGS INTACT. KATIE PICC, ASYMPTOMATIC. BILATERAL SOFT WRIST RESTRAINTS NOTED, PT WAS OBSERVED PULLING AT DEVICES WHEN REMOVED, IMPULSIVE. BED IS LOCKED IN LOWEST POSITION, SR X3, CALL ALONSO W/ IN REACH, BED ALARM ON. WILL CONTINUE TO MONITOR AND FOLLOW W/ PLAN OF CARE.
[2019-03-09] MEDS: Dyna-Hex 2% Top Sol 2oz TOPIC SCH (21:05)
--- NOTE | 2019-03-09 21:15 | NUR ---
NURSE NOTES: BP MEDS HELD, D/T DECREASED BP. WILL CONTINUE TO MONITOR.
[2019-03-10] VITALS: BP 124/64
[2019-03-10] MEDS: Metoclopramide 10mg/2ml Inj IVP SCH ×3 (00:15→17:41)
[2019-03-10] MEDS: NovoLOG Insulin Flexpen SUBQ SCH ×4 (00:19→17:36)
[2019-03-10] MEDS: Albuterol/Ipratropium 3ml neb HHN SCH ×4 (00:53→19:11)
[2019-03-10 04:00] VITALS: BP 134/71
[2019-03-10] MEDS: HydrALAZINE 50mg tab NG SCH ×3 (05:33→21:54)
[2019-03-10] MEDS: cloNIDine 0.2mg Tab NG SCH ×3 (05:34→21:55)
[2019-03-10] MEDS: Lacri-Lube Opth Oint 3.5gm BOTH EYES SCH ×4 (05:34→20:37)
[2019-03-10 07:08] LABS: BASOPHILS % (AUTO) 0.8 % (0.0-2.0); HEMATOCRIT 26.4 % (42.0-52.0); HEMOGLOBIN 8.8 G/DL (14.2-18.0); MEAN CORPUSCULAR VOLUME 86 FL (80-99); MONOCYTES % (AUTO) 13.5 % (1.0-10.0); NEUTROPHILS % (AUTO) 61.7 % (45.0-75.0); PLATELET COUNT 151 K/UL (150-450); RED BLOOD COUNT 3.05 M/UL (4.70-6.10); RED CELL DISTRIBUTION WIDTH 15.3 % (11.6-14.8); WHITE BLOOD COUNT 4.3 K/UL (4.8-10.8)
--- NOTE | 2019-03-10 07:23 | NUR ---
HAND-OFF: Report given to TESSA HANEY.
--- NOTE | 2019-03-10 07:24 | NUR ---
NURSE NOTES: Received patient in bed. On Tpiece, on continuous GTF. Bilateral soft wrist restraints noted. Simon cath inplace, rectal tube inplace. Will continue plan of care.
[2019-03-10 07:36] LABS: ALANINE AMINOTRANSFERASE 52 U/L (12-78); ALBUMIN 2.4 G/DL (3.4-5.0); ALBUMIN/GLOBULIN RATIO 0.8 (1.0-2.7); ALKALINE PHOSPHATASE 175 U/L (46-116); ANION GAP 6 mmol/L (5-15); ASPARTATE AMINO TRANSFERASE 42 U/L (15-37); BILIRUBIN,TOTAL 0.4 MG/DL (0.2-1.0); BLOOD UREA NITROGEN 19 mg/dL (7-18); CALCIUM 8.4 MG/DL (8.5-10.1); CARBON DIOXIDE 31 MMOL/L (21-32); CHLORIDE 101 MMOL/L (98-107); CREATININE 1.4 MG/DL (0.55-1.30); POTASSIUM 3.9 MMOL/L (3.5-5.1); SODIUM 138 MMOL/L (136-145)
[2019-03-10 08:00] VITALS: BP 134/69
--- NOTE | 2019-03-10 08:30 | NUR ---
NURSE NOTES: Patient is uncooperative with care. Trying to get out of bed. Reeducated patient that it's not safe for him to get out of bed alone.
[2019-03-10] MEDS: Pantoprazole Inj IVP SCH (08:44)
[2019-03-10] MEDS: Heparin 5000 units/ml inj SUBQ SCH ×2 (08:45→20:40)
[2019-03-10] MEDS: Levemir Flexpen SUBQ SCH ×2 (08:46→20:40)
[2019-03-10] MEDS: LORazepam Inj 2mg/ml 1ml IV PRN ×2 (08:55→14:40)
[2019-03-10] MEDS: Sennosides 8.6mg tab ORAL SCH (09:00)
[2019-03-10] MEDS: Docusate 100mg/10ml Liq GT SCH ×3 (09:00→18:00)
[2019-03-10] MEDS: Bactrim-DS 1 tab ORAL SCH (10:23)
[2019-03-10] MEDS: Meropenem 1 GM in NS 55 ML IVPB SCH ×2 (10:23→20:37)
[2019-03-10] MEDS: Vancomycin 1.5 GM in NS 275 ML IVPB SCH (10:23)
[2019-03-10] MEDS: ETRAVIRINE 200 MG ORAL SCH (10:29)
[2019-03-10] MEDS: TENOFOVIR DISOPROXIL FUMARATE 300 MG ORAL SCH (10:29)
[2019-03-10] MEDS: RALTEGRAVIR 400 MG ORAL SCH ×2 (10:30→17:41)
[2019-03-10] MEDS ORDERED: Sterile Water Irrig 1000ml IRRIG ONE (10:56)
[2019-03-10] MEDS ORDERED: NS 275ml ONE (10:56)
[2019-03-10 12:00] VITALS: BP 151/74
--- NOTE | 2019-03-10 12:13 | Hematology/Onc Progress Note ---
Assessment/Plan Assessment/Plan ASSESSMENT AND RECS: # Pancytopenia with all three cell lines have, decreasing counts could also be due to underlying hiv meds, sepsis as well as HIV --> Anemia workup has been reviewed. Ferritin 182 --> Hep panel pending and HIV confirmed positive --> No evidence of hemolysis is noted, peripheral smear has been reviewed. --> Hgb goal >7. Transfuse prn. --> Epogen or iron at this time is not particularly indicated --> Medications have been reviewed --> Stool OB negative --> Blood tx: 1 unit on 02/10/19, --> off ASA, off heparin, off lovenox --> Hgb trend: 7.6-->8.2-->9.4-->8.4-->8.2 -->8.9-->10.3->7.9-->8.1->7.8-->8.7-- >8.4-->8.1-->7.9-->8.2-->7.6-->8.3-->8.8 --> WBC trend: 5-->4-->3.2-->3.1-->3.4-->2.8-->4.3 --> Plt trend: 153-->257-->224-->205-->253-->310-->201->177-->115-->104-->100--> 106-->96k-->93k-->104-->151 --> Transfuse if Plt < 20k and fever, or if Plt < 10k without fever --> WILLIAM screen negative # Multilobar pneumonia in patient with HIV. Recs per ID. --> Broad sp atbx started. Continue on abx as per id --> Droplet precaution # Hypoxemic respiratory failure. s/p trach --> Due to pneumonia, on abx --> pulm recs reviewed --> SBT as per pulm # Chest pain. Cardiology is following, appreciate recs --> EKG with bifascicular block RBB and LAFB, no ST changes --> Trend troponin x3 --> NGT prn # HIV. --> Continue HARRT --> VL is undetectable per patient report. # HTN --> Resume home medication # DVT and GI ppx The time the note is entered does not reflect the time the patient was examined. I greatly appreciate the consultation. Subjective Hematologic/Lymphatic: Reports: anemia Allergies: Coded Allergies: No Known Allergies (Unverified , 02/05/13) All Systems: reviewed and negative except above Subjective Subjective 02/11: Hgb yesterday was 7.6, s/p 1 unit prbc. Current hgb at 8.2. Pt attempted to pull out tubes per nursing team, soft restraints applied. 02/13: Pt in ICU and intubated. Pt currently sedated. Current hgb 9.4. 02/14: Pt remains in icu, sedated. Hgb stable. 02/15: Remains in icu, lethargic. No acute events. Hgb stable. 02/16: Remains in icu. CXR today shows worsening CHF/pulmonary edema. Pt wake and sedation decrease for weaning. 02/18: Remains in icu. Pt on vent. CXR today shows pulmonary edema, persistent small left pleural effusion. 02/19: Remains in the icu, now extubated, seen by pulm, labs reviewed 02/20: Remains in ICU, Pt intubated, CXR today shows Congestive heart failure with interval worsening 02/21: reintubated, tolerating vent well, seen by pulm/cc 02/23: pt remains on fently gtt, prn ativan, currenlty intubated on vent, no further bleeding, d/w RN> 02/24:failed weaning, fentanyl drip decreased. 02/25:pt seen in am,sedated. 02/27: remains intubated, may need trach, no bleeding today 02/28: tolerated cpap, now back on vent, no bleeding off asa/lovenox 03/01: fentanyl gtt is now off, remains in icu, dw rn 03/02: to get trach today, at approx 12, no events, labs somewhat lower 03/03: still confused on exam, d/w rn, no events, on fentanyl gtt 03/05: to get peg tomorrow, no f/c 03/06: received peg yesterday, tolerating tfs well, no f/c, labs reviewed 03/07: remains in icu, trach collar, dw pulm, no f/c 03/08: seen by neuro, no bleeding, no f/c, seen by pulm/cc, neuro 03/09: transferred to [facility], on t-piece, on abx, labs reviewed. 03/10: resting in bed, no acute events, labs reviewed Objective Objective Current Medications Medications (Trade) Dose Ordered Sig/Marquis Route PRN Reason Start Time Stop Time Status Last Admin Dose Admin Acetaminophen/ Butalbital/ Caffeine (Fioricet) 1 tab Q8H PRN ORAL For Headache 03/09/19 15:42 04/08/19 15:41 Albuterol/ Ipratropium (Albuterol/ Ipratropium) 3 ml Q6HRT HHN 03/09/19 07:00 03/13/19 19:14 03/10/19 07:27 Amlodipine Besylate (Norvasc) 10 mg DAILY NG 03/09/19 09:00 03/14/19 15:59 03/10/19 10:23 Artificial Tears (Lacri-Lube) 1 applic AC+HS BOTH EYES 03/09/19 11:30 03/20/19 06:29 03/10/19 05:34 Chlorhexidine Gluconate (Jessy-Hex 2%) 1 applic DAILY@2000 TOPIC 03/09/19 20:00 03/27/19 19:59 03/09/19 21:05 Clonidine HCl (Catapres tab) 0.2 mg EVERY 8 HOURS NG 03/09/19 14:00 03/19/19 13:59 03/10/19 05:34 Dextrose (Dextrose 50%) 25 ml Q30M PRN IV Hypoglycemia 03/09/19 07:15 03/31/19 07:14 Dextrose (Dextrose 50%) 50 ml Q30M PRN IV Hypoglycemia 03/09/19 07:15 03/31/19 07:14 Docusate Sodium (Colace) 100 mg TID GT 03/09/19 09:00 03/12/19 08:59 Fluconazole/ Sodium Chloride 100 ml @ 100 mls/hr Q24H IV 03/09/19 18:00 03/15/19 17:59 03/09/19 19:45 Heparin Sodium (Porcine) (Heparin 5000 units/ml) 5,000 units EVERY 12 HOURS SUBQ 03/09/19 09:00 04/05/19 20:59 03/10/19 08:45 Hydralazine HCl (Apresoline) 10 mg Q4H PRN IV bp over 165 syst 03/09/19 08:00 03/19/19 07:59 Hydralazine HCl (Apresoline) 50 mg Q8HR NG 03/09/19 14:00 03/21/19 21:59 03/10/19 05:33 Insulin Aspart (NovoLOG) EVERY 6 HOURS SUBQ 03/09/19 12:00 03/28/19 11:59 03/10/19 05:36 Insulin Detemir (Levemir) 10 units Q12HR SUBQ 03/09/19 09:00 04/01/19 20:59 03/10/19 08:46 Lorazepam (Ativan 2mg/ml 1ml) 2 mg Q2H PRN IV For Anxiety 03/09/19 07:45 03/13/19 19:44 03/10/19 08:55 Meropenem 1 gm/ Sodium Chloride 55 ml @ 110 mls/hr Q12HR IVPB 03/09/19 09:00 03/11/19 20:59 03/10/19 10:23 Metoclopramide HCl (Reglan) 5 mg Q8H IVP 03/09/19 09:00 03/28/19 08:59 03/10/19 08:44 Metolazone (Zaroxolyn) 10 mg DAILY NG 03/09/19 09:00 03/21/19 09:59 03/10/19 10:23 Midazolam HCl (Versed 2mg/2ml vial) 1 mg Q2H PRN IVP Agitation 03/09/19 08:00 03/15/19 07:59 Pantoprazole (Protonix) 40 mg DAILY IVP 03/09/19 09:00 03/24/19 20:59 03/10/19 08:44 Patient Own Medication (Patient's Own Med) 1 ea BID ORAL 03/09/19 09:00 04/08/19 08:59 03/10/19 10:30 Patient Own Medication (Patient's Own Med) 1 ea DAILY ORAL 03/09/19 09:00 04/08/19 08:59 03/10/19 10:29 Patient Own Medication (Patient's Own Med) 2 ea DAILY ORAL 03/09/19 09:00 04/08/19 08:59 03/10/19 10:29 Quetiapine Fumarate (SEROquel) 25 mg Q12HR ORAL 03/09/19 09:00 04/07/19 20:59 03/10/19 10:23 Sennosides (Senokot) 8.6 mg DAILY ORAL 03/09/19 09:00 03/15/19 11:59 Trimethoprim/ Sulfamethoxazole (Bactrim-DS) 1 tab DAILY ORAL 03/09/19 09:00 03/11/19 08:59 03/10/19 10:23 Vancomycin HCl (Vanco rx to dose) 1 ea DAILY PRN MISC Per rx protocol 03/09/19 09:00 04/02/19 10:59 Vancomycin HCl 1.5 gm/Sodium Chloride 275 ml @ 137.5 mls/ hr Q24H IVPB 03/10/19 08:00 03/15/19 07:59 03/10/19 10:23 Last 24 Hour Vital Signs Date Time Temp Pulse Resp B/P (MAP) Pulse Ox O2 Delivery O2 Flow Rate FiO2 03/10/19 10:23 94 134/69 03/10/19 09:25 100 03/10/19 08:00 T-piece T-piece 03/10/19 08:00 98.1 94 19 134/69 (90) 100 03/10/19 07:58 92 03/10/19 07:44 93 18 100 T-Piece 6.0 03/10/19 07:29 100 T-Piece 6.0 03/10/19 07:27 91 20 100 T-Piece 8.0 03/10/19 05:34 134/71 03/10/19 05:33 134/71 03/10/19 04:00 91 03/10/19 04:00 T-piece T-piece 03/10/19 04:00 99.2 82 24 134/71 (92) 99 03/10/19 01:05 92 18 100 T-Piece 6.0 03/10/19 01:05 100 T-Piece 6.0 03/10/19 00:52 93 22 100 T-Piece 8.0 03/10/19 00:00 T-piece T-piece 03/10/19 00:00 99.6 93 24 124/64 (84) 99 03/10/19 00:00 91 03/09/19 21:07 115/60 03/09/19 21:07 115/60 03/09/19 20:06 88 18 100 T-Piece 8.0 30 03/09/19 20:00 95 03/09/19 20:00 88 18 100 T-Piece 8.0 30 03/09/19 20:00 T-piece T-piece 03/09/19 20:00 99.2 94 24 115/60 (78) 99 03/09/19 19:59 100 T-Piece 8.0 30 03/09/19 19:50 90 18 99 T-Piece 6.0 28 03/09/19 16:00 85 03/09/19 16:00 T-piece T-piece 03/09/19 16:00 98.7 92 20 144/76 (98) 98 03/09/19 14:00 136/79 03/09/19 12:59 92 20 100 T-Piece 6.0 03/09/19 12:53 100 T-Piece 8.0 30 03/09/19 12:53 90 20 99 T-Piece 6.0 28 03/09/19 12:00 98.8 94 20 136/79 (98) 99 03/09/19 12:00 T-piece T-piece 03/09/19 11:26 92 03/09/19 09:11 82 124/60 03/09/19 08:00 T-piece T-piece 03/09/19 08:00 98.9 82 20 124/60 (81) 99 03/09/19 07:49 82 03/09/19 07:32 82 22 100 T-Piece 6.0 28 03/09/19 07:27 81 22 100 T-Piece 8.0 30 03/09/19 07:26 100 T-Piece 8.0 30 03/09/19 07:25 82 22 100 T-Piece 6.0 28 03/09/19 06:00 83 23 164/64 (97) 100 03/09/19 05:49 172/55 03/09/19 05:48 172/55 03/09/19 05:00 83 23 157/63 (94) 100 03/09/19 04:30 83 23 157/63 (94) 100 03/09/19 04:00 98.9 83 24 172/66 (101) 99 03/09/19 04:00 85 03/09/19 04:00 T-piece T-piece 03/09/19 03:00 88 23 128/92 (104) 100 03/09/19 02:00 80 29 143/53 (83) 98 03/09/19 01:13 77 32 100 Trach Collar 6.0 28 03/09/19 01:01 100 T-Piece 8.0 30 03/09/19 01:01 76 30 100 Trach Collar 8.0 30 03/09/19 01:00 76 22 140/56 (84) 98 03/09/19 00:00 T-piece T-piece 03/09/19 00:00 74 03/09/19 00:00 99.1 75 27 145/56 (85) 100 03/08/19 23:00 73 25 141/53 (82) 99 03/08/19 22:00 79 25 135/53 (80) 98 03/08/19 21:46 141/61 03/08/19 21:46 141/61 03/08/19 21:00 77 30 153/61 (91) 100 03/08/19 20:00 77 30 141/56 (84) 97 03/08/19 20:00 T-piece T-piece 03/08/19 20:00 76 03/08/19 19:20 74 36 99 Trach Collar 8.0 30 03/08/19 19:10 73 22 98 Trach Collar 8.0 30 03/08/19 19:00 99.0 73 29 134/55 (81) 96 03/08/19 18:53 74 37 97 T-Piece 8.0 30 03/08/19 18:52 97 T-Piece 12.0 40 03/08/19 18:00 73 33 134/56 (82) 100 03/08/19 17:00 78 27 134/56 (82) 96 03/08/19 16:00 76 03/08/19 16:00 99.0 76 22 118/47 (70) 97 03/08/19 16:00 T-piece T-piece 03/08/19 15:00 75 34 125/48 (73) 96 03/08/19 14:23 133/47 03/08/19 14:22 133/47 03/08/19 14:00 77 32 133/47 (75) 98 03/08/19 13:02 76 20 99 Trach Collar 8.0 30 03/08/19 13:00 98.8 77 29 132/47 (75) 99 03/08/19 12:46 100 T-Piece 12.0 40 03/08/19 12:46 76 20 100 Trach Collar 12.0 40 Intake and Output 03/09/19 03/10/19 19:00 07:00 Intake Total 416.000 ml 851 ml Output Total 1600 ml 1850 ml Balance -1184.000 ml -999 ml Free Water 180 ml IV Total 330.000 ml 155 ml Tube Feeding 86 ml 516 ml Output Urine Total 1400 ml 1500 ml Stool Total 200 ml 150 ml Emesis 200 ml Labs Test 03/08/19 04:00 03/09/19 04:00 03/09/19 08:00 03/10/19 05:20 White Blood Count 2.5 K/UL (4.8-10.8) 2.8 K/UL (4.8-10.8) 4.3 K/UL (4.8-10.8) Red Blood Count 2.63 M/UL (4.70-6.10) 2.90 M/UL (4.70-6.10) 3.05 M/UL (4.70-6.10) Hemoglobin 7.6 G/DL (14.2-18.0) 8.3 G/DL (14.2-18.0) 8.8 G/DL (14.2-18.0) Hematocrit 22.9 % (42.0-52.0) 25.1 % (42.0-52.0) 26.4 % (42.0-52.0) Mean Corpuscular Volume 87 FL (80-99) 87 FL (80-99) 86 FL (80-99) Mean Corpuscular Hemoglobin 29.0 PG (27.0-31.0) 28.5 PG (27.0-31.0) 28.8 PG (27.0-31.0) Mean Corpuscular Hemoglobin Concent 33.2 G/DL (32.0-36.0) 32.9 G/DL (32.0-36.0) 33.3 G/DL (32.0-36.0) Red Cell Distribution Width 15.7 % (11.6-14.8) 15.7 % (11.6-14.8) 15.3 % (11.6-14.8) Platelet Count 93 K/UL (150-450) 104 K/UL (150-450) 151 K/UL (150-450) Mean Platelet Volume 6.4 FL (6.5-10.1) 6.0 FL (6.5-10.1) 6.0 FL (6.5-10.1) Neutrophils (%) (Auto) % (45.0-75.0) % (45.0-75.0) 61.7 % (45.0-75.0) Lymphocytes (%) (Auto) % (20.0-45.0) % (20.0-45.0) 23.0 % (20.0-45.0) Monocytes (%) (Auto) % (1.0-10.0) % (1.0-10.0) 13.5 % (1.0-10.0) Eosinophils (%) (Auto) % (0.0-3.0) % (0.0-3.0) 1.0 % (0.0-3.0) Basophils (%) (Auto) % (0.0-2.0) % (0.0-2.0) 0.8 % (0.0-2.0) Differential Total Cells Counted 100 100 Neutrophils % (Manual) 50 % (45-75) 53 % (45-75) Lymphocytes % (Manual) 34 % (20-45) 32 % (20-45) Monocytes % (Manual) 13 % (1-10) 12 % (1-10) Eosinophils % (Manual) 2 % (0-3) 3 % (0-3) Basophils % (Manual) 1 % (0-2) 0 % (0-2) Band Neutrophils 0 % (0-8) 0 % (0-8) Platelet Estimate Decreased Decreased Platelet Morphology Normal Normal Hypochromasia 3+ Anisocytosis 1+ 1+ Spherocytes 2+ Sodium Level 136 MMOL/L (136-145) 138 MMOL/L (136-145) 138 MMOL/L (136-145) Potassium Level 3.9 MMOL/L (3.5-5.1) 3.7 MMOL/L (3.5-5.1) 3.9 MMOL/L (3.5-5.1) Chloride Level 100 MMOL/L (98-107) 100 MMOL/L (98-107) 101 MMOL/L (98-107) Carbon Dioxide Level 32 MMOL/L (21-32) 32 MMOL/L (21-32) 31 MMOL/L (21-32) Anion Gap 4 mmol/L (5-15) 6 mmol/L (5-15) 6 mmol/L (5-15) Blood Urea Nitrogen 24 mg/dL (7-18) 21 mg/dL (7-18) 19 mg/dL (7-18) Creatinine 1.6 MG/DL (0.55-1.30) 1.6 MG/DL (0.55-1.30) 1.4 MG/DL (0.55-1.30) Estimat Glomerular Filtration Rate 44.5 mL/min (>60) 44.5 mL/min (>60) 51.9 mL/min (>60) Glucose Level 156 MG/DL (74-106) 195 MG/DL (74-106) 190 MG/DL (74-106) Calcium Level 8.4 MG/DL (8.5-10.1) 8.5 MG/DL (8.5-10.1) 8.4 MG/DL (8.5-10.1) Phosphorus Level 2.8 MG/DL (2.5-4.9) Magnesium Level 2.0 MG/DL (1.8-2.4) Total Bilirubin 0.5 MG/DL (0.2-1.0) 0.4 MG/DL (0.2-1.0) 0.4 MG/DL (0.2-1.0) Aspartate Amino Transf (AST/SGOT) 38 U/L (15-37) 37 U/L (15-37) 42 U/L (15-37) Alanine Aminotransferase (ALT/SGPT) 45 U/L (12-78) 45 U/L (12-78) 52 U/L (12-78) Alkaline Phosphatase 144 U/L (46-116) 164 U/L (46-116) 175 U/L (46-116) Total Protein 5.0 G/DL (6.4-8.2) 5.4 G/DL (6.4-8.2) 5.5 G/DL (6.4-8.2) Albumin 2.0 G/DL (3.4-5.0) 2.1 G/DL (3.4-5.0) 2.4 G/DL (3.4-5.0) Globulin 3.0 g/dL 3.3 g/dL 3.1 g/dL Albumin/Globulin Ratio 0.7 (1.0-2.7) 0.6 (1.0-2.7) 0.8 (1.0-2.7) Vancomycin Level Trough 12.8 ug/mL (5.0-12.0) Height (Feet): 6 Height (Inches): 0.00 Weight (Pounds): 252 Objective PHYSICAL EXAMINATION: GENERAL: NAD VITAL SIGNS: Have been reviewed. HEAD AND NECK: Shows no JVD. NG+, trach ++++ vent+ LUNGS: Coarse rhonchi. CARDIOVASCULAR: Shows regular S1 and S2 with no gallop or murmur. ABDOMEN: Soft. ++ peg EXTREMITIES: No pitting edema. Chan Hernandez MD Mar 10, 2019 12:13
--- NOTE | 2019-03-10 14:08 | General Progress Note ---
Assessment/Plan Status: stable Assessment/Plan: 58 y Male admitted to the hospital due to fever, shortness of breath and chest pain. # Multilobar pneumonia in patient with HIV - Broad sp atbx started. Continue Zosyn, Vancomycin, Azithromycin, TM-SMX ( now prophylactic and completed course for PCP/PJ pnuemonia ) - Fluconazole per ID - Droplet precaution removed. - Flu swab negative - Oxygen support, ventilatory support as not able to wean off ventilator due to agitation. - ID consult appreciated. - T piece being tolerated and transferred to [facility] 03/09 # Hypoxemic respiratory failure - Critical care follow up. Unable to wean off the ventilator. Tracheostomy completed. - Due to pneumonia - Tolerating CPAP 03/06 # Chest pain - EKG with bifascicular block RBB and LAFB, no ST changes. - Trend troponin x3 completed - ECHO completed with no WMA and preserved EF. Dr. Francois consulted. Consideration for outpatient cath vs possibly myocarditis due to underlying viral infection. No evidence of Takotsubo per TTE. NOT a candidate for angiogram at this time. - NGT prn - Pain control with morphine # HIV - Continue HARRT - VL is undetectable per patient report. T cell count > 400 - CD 4 count 191 # HTN - Resume home medication - Clonidine, Isordil added. # [place] hyponatremia - Monitor - good response to NS # CKD 2-3 - Trend renal function - Worsening creatinine to 2.8 today. 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 Gasca for MEDICAL CSR if needed again in the future. Currently renal function stable and L femoral dialysis access removed. - R PICC done last week. # Failure to thrive and moderate protein caloric malnutrition - PEG 03/05 - Tube feeds started and tolerating - Dr. Ricketts following up. # Hypokalemia - Replete today # Hypophosphatemia - Replete today # Diabetes Mellitus - Lantus 10 BID - Endocrinology following up appreciated. - Resolved hypoglycemia 03/06 # Loose stool - C diff negative 03/07 # PT mobility requested # ST evaluation for PM Valve trial DVT and GI ppx Full code Subjective Constitutional: Reports: no symptoms HEENT: Reports: no symptoms Cardiovascular: Reports: no symptoms Respiratory: Reports: cough Gastrointestinal/Abdominal: Reports: no symptoms Genitourinary: Reports: no symptoms Neurologic/Psychiatric: Reports: anxiety Endocrine: Reports: no symptoms Hematologic/Lymphatic: Reports: no symptoms Allergies: Coded Allergies: No Known Allergies (Unverified , 02/05/13) All Systems: reviewed and negative except above Objective Last 24 Hour Vital Signs Date Time Temp Pulse Resp B/P (MAP) Pulse Ox O2 Delivery O2 Flow Rate FiO2 03/10/19 13:39 99 18 99 T-Piece 6.0 28 03/10/19 13:32 151/74 03/10/19 13:32 151/74 03/10/19 13:26 100 T-Piece 6.0 28 03/10/19 13:25 89 18 100 T-Piece 6.0 28 03/10/19 12:00 T-piece T-piece 03/10/19 12:00 98.4 89 20 151/74 (99) 98 03/10/19 10:23 94 134/69 03/10/19 09:25 100 03/10/19 08:00 T-piece T-piece 03/10/19 08:00 98.1 94 19 134/69 (90) 100 03/10/19 07:58 92 03/10/19 07:44 93 18 100 T-Piece 6.0 28 03/10/19 07:29 100 T-Piece 6.0 03/10/19 07:27 91 20 100 T-Piece 6.0 03/10/19 05:34 134/71 03/10/19 05:33 134/71 03/10/19 04:00 91 03/10/19 04:00 T-piece T-piece 03/10/19 04:00 99.2 82 24 134/71 (92) 99 03/10/19 01:05 92 18 100 T-Piece 6.0 03/10/19 01:05 100 T-Piece 6.0 03/10/19 00:52 93 22 100 T-Piece 8.0 03/10/19 00:00 T-piece T-piece 03/10/19 00:00 99.6 93 24 124/64 (84) 99 03/10/19 00:00 91 03/09/19 21:07 115/60 03/09/19 21:07 115/60 03/09/19 20:06 88 18 100 T-Piece 8.0 30 03/09/19 20:00 95 03/09/19 20:00 88 18 100 T-Piece 8.0 30 03/09/19 20:00 T-piece T-piece 03/09/19 20:00 99.2 94 24 115/60 (78) 99 03/09/19 19:59 100 T-Piece 8.0 30 03/09/19 19:50 90 18 99 T-Piece 6.0 28 03/09/19 16:00 85 03/09/19 16:00 T-piece T-piece 03/09/19 16:00 98.7 92 20 144/76 (98) 98 Intake and Output 03/09/19 03/10/19 19:00 07:00 Intake Total 416.000 ml 851 ml Output Total 1600 ml 1850 ml Balance -1184.000 ml -999 ml Free Water 180 ml IV Total 330.000 ml 155 ml Tube Feeding 86 ml 516 ml Output Urine Total 1400 ml 1500 ml Stool Total 200 ml 150 ml Emesis 200 ml Laboratory Tests 03/10/19 05:20: White Blood Count 4.3#L, Red Blood Count 3.05L, Hemoglobin 8.8L, Hematocrit 26.4L, Mean Corpuscular Volume 86, Mean Corpuscular Hemoglobin 28.8, Mean Corpuscular Hemoglobin Concent 33.3, Red Cell Distribution Width 15.3H, Platelet Count 151, Mean Platelet Volume 6.0L, Neutrophils (%) (Auto) 61.7, Lymphocytes (%) (Auto) 23.0, Monocytes (%) (Auto) 13.5H, Eosinophils (%) (Auto) 1.0, Basophils (%) (Auto) 0.8, Sodium Level 138, Potassium Level 3.9, Chloride Level 101, Carbon Dioxide Level 31, Anion Gap 6, Blood Urea Nitrogen 19H, Creatinine 1.4H, Estimat Glomerular Filtration Rate 51.9, Glucose Level 190H, Calcium Level 8.4L, Total Bilirubin 0.4, Aspartate Amino Transf (AST/SGOT) 42H, Alanine Aminotransferase (ALT/SGPT) 52, Alkaline Phosphatase 175H, Total Protein 5.5L, Albumin 2.4L, Globulin 3.1, Albumin/Globulin Ratio 0.8L Height (Feet): 6 Height (Inches): 0.00 Weight (Pounds): 252 General Appearance: WD/WN EENT: PERRL/EOMI Neck: supple Cardiovascular: normal rate Respiratory/Chest: chest wall non-tender Neurologic: derrick man II-XII grossly normal Skin: normal pigmentation Geovani Hawley MD Mar 10, 2019 14:08
--- NOTE | 2019-03-10 14:40 | Cardiac Electrophysiology PN ---
Assessment/Plan Assessment/Plan 1. Non-ST elevation myocardial infarction with peak troponin of more than 10, down to 3.[address]-T wave abnormalities. Continue Lipitor, Imdur and metoprolol Not a candidate for Cardiac catheterization 2. Hypertension. Metoprolol 100 bid, Isordil 20 q6 , Norvasc 10 daily, hydralazine 50 q 8 hr and Clonidine 0.2 q 8hrs 3. Respiratory failure due to Multilobar Pneumonia. Extubated 02/19/19. Reintubated 02/20/19 S/P Tracheostomy 03/02/19. Off the vent 4. Hyperlipidemia. On Lipitor. 5. Human immunodeficiency virus. On anti-retroviral therapy with undetectable viral load. 6. ARF Cr 3 Now Cr 1.6 7. Bleeding from ETT and NG tube. S/P PRBC. Off Aspirin and Lovenox No further bleeding 8. Dysphagia. S/P PEG 03/05/19 DW RN Subjective Subjective In SDU off the vent on T piece via Tracheostomy. Alert in NAD Objective Last 24 Hour Vital Signs Date Time Temp Pulse Resp B/P (MAP) Pulse Ox O2 Delivery O2 Flow Rate FiO2 03/10/19 13:39 99 18 99 T-Piece 6.0 03/10/19 13:32 151/74 03/10/19 13:32 151/74 03/10/19 13:26 100 T-Piece 6.0 03/10/19 13:25 89 18 100 T-Piece 6.0 03/10/19 12:00 T-piece T-piece 03/10/19 12:00 98.4 89 20 151/74 (99) 98 03/10/19 11:38 86 03/10/19 10:23 94 134/69 03/10/19 09:25 100 03/10/19 08:00 T-piece T-piece 03/10/19 08:00 98.1 94 19 134/69 (90) 100 03/10/19 07:58 92 03/10/19 07:44 93 18 100 T-Piece 6.0 03/10/19 07:29 100 T-Piece 6.0 03/10/19 07:27 91 20 100 T-Piece 6.0 03/10/19 05:34 134/71 03/10/19 05:33 134/71 03/10/19 04:00 91 03/10/19 04:00 T-piece T-piece 03/10/19 04:00 99.2 82 24 134/71 (92) 99 03/10/19 01:05 92 18 100 T-Piece 6.0 28 03/10/19 01:05 100 T-Piece 6.0 28 03/10/19 00:52 93 22 100 T-Piece 8.0 28 03/10/19 00:00 T-piece T-piece 03/10/19 00:00 99.6 93 24 124/64 (84) 99 03/10/19 00:00 91 03/09/19 21:07 115/60 03/09/19 21:07 115/60 03/09/19 20:06 88 18 100 T-Piece 8.0 30 03/09/19 20:00 95 03/09/19 20:00 88 18 100 T-Piece 8.0 30 03/09/19 20:00 T-piece T-piece 03/09/19 20:00 99.2 94 24 115/60 (78) 99 03/09/19 19:59 100 T-Piece 8.0 30 03/09/19 19:50 90 18 99 T-Piece 6.0 28 03/09/19 16:00 85 03/09/19 16:00 T-piece T-piece 03/09/19 16:00 98.7 92 20 144/76 (98) 98 Intake and Output 03/09/19 03/10/19 19:00 07:00 Intake Total 416.000 ml 851 ml Output Total 1600 ml 1850 ml Balance -1184.000 ml -999 ml Free Water 180 ml IV Total 330.000 ml 155 ml Tube Feeding 86 ml 516 ml Output Urine Total 1400 ml 1500 ml Stool Total 200 ml 150 ml Emesis 200 ml Laboratory Tests Test 03/10/19 05:20 White Blood Count 4.3 K/UL (4.8-10.8) #L Red Blood Count 3.05 M/UL (4.70-6.10) L Hemoglobin 8.8 G/DL (14.2-18.0) L Hematocrit 26.4 % (42.0-52.0) L Mean Corpuscular Volume 86 FL (80-99) Mean Corpuscular Hemoglobin 28.8 PG (27.0-31.0) Mean Corpuscular Hemoglobin Concent 33.3 G/DL (32.0-36.0) Red Cell Distribution Width 15.3 % (11.6-14.8) H Platelet Count 151 K/UL (150-450) Mean Platelet Volume 6.0 FL (6.5-10.1) L Neutrophils (%) (Auto) 61.7 % (45.0-75.0) Lymphocytes (%) (Auto) 23.0 % (20.0-45.0) Monocytes (%) (Auto) 13.5 % (1.0-10.0) H Eosinophils (%) (Auto) 1.0 % (0.0-3.0) Basophils (%) (Auto) 0.8 % (0.0-2.0) Sodium Level 138 MMOL/L (136-145) Potassium Level 3.9 MMOL/L (3.5-5.1) Chloride Level 101 MMOL/L (98-107) Carbon Dioxide Level 31 MMOL/L (21-32) Anion Gap 6 mmol/L (5-15) Blood Urea Nitrogen 19 mg/dL (7-18) H Creatinine 1.4 MG/DL (0.55-1.30) H Estimat Glomerular Filtration Rate 51.9 mL/min (>60) Glucose Level 190 MG/DL (74-106) H Calcium Level 8.4 MG/DL (8.5-10.1) L Total Bilirubin 0.4 MG/DL (0.2-1.0) Aspartate Amino Transf (AST/SGOT) 42 U/L (15-37) H Alanine Aminotransferase (ALT/SGPT) 52 U/L (12-78) Alkaline Phosphatase 175 U/L (46-116) H Total Protein 5.5 G/DL (6.4-8.2) L Albumin 2.4 G/DL (3.4-5.0) L Globulin 3.1 g/dL Albumin/Globulin Ratio 0.8 (1.0-2.7) L Objective HEAD AND NECK: No JVD. S/P tracheostomy LUNGS: Coarse rhonchi. CARDIOVASCULAR: Regular S1 and S2 with no gallop or murmur. ABDOMEN: Soft.PEG in place EXTREMITIES: 1 plus pitting edema. Murray Francois MD Mar 10, 2019 14:40
--- NOTE | 2019-03-10 14:48 | Surgery Progress Note ---
Surgery Progress Note Subjective Procedure Performed tracheostomy Symptoms: improved Objective Last 24 Hour Vital Signs Date Time Temp Pulse Resp B/P (MAP) Pulse Ox O2 Delivery O2 Flow Rate FiO2 03/10/19 13:39 99 18 99 T-Piece 6.0 28 03/10/19 13:32 151/74 03/10/19 13:32 151/74 03/10/19 13:26 100 T-Piece 6.0 03/10/19 13:25 89 18 100 T-Piece 6.0 03/10/19 12:00 T-piece T-piece 03/10/19 12:00 98.4 89 20 151/74 (99) 98 03/10/19 11:38 86 03/10/19 10:23 94 134/69 03/10/19 09:25 100 03/10/19 08:00 T-piece T-piece 03/10/19 08:00 98.1 94 19 134/69 (90) 100 03/10/19 07:58 92 03/10/19 07:44 93 18 100 T-Piece 6.0 03/10/19 07:29 100 T-Piece 6.0 03/10/19 07:27 91 20 100 T-Piece 6.0 03/10/19 05:34 134/71 03/10/19 05:33 134/71 03/10/19 04:00 91 03/10/19 04:00 T-piece T-piece 03/10/19 04:00 99.2 82 24 134/71 (92) 99 03/10/19 01:05 92 18 100 T-Piece 6.0 03/10/19 01:05 100 T-Piece 6.0 03/10/19 00:52 93 22 100 T-Piece 8.0 03/10/19 00:00 T-piece T-piece 03/10/19 00:00 99.6 93 24 124/64 (84) 99 03/10/19 00:00 91 03/09/19 21:07 115/60 03/09/19 21:07 115/60 03/09/19 20:06 88 18 100 T-Piece 8.0 30 03/09/19 20:00 95 03/09/19 20:00 88 18 100 T-Piece 8.0 30 03/09/19 20:00 T-piece T-piece 03/09/19 20:00 99.2 94 24 115/60 (78) 99 03/09/19 19:59 100 T-Piece 8.0 30 03/09/19 19:50 90 18 99 T-Piece 6.0 28 03/09/19 16:00 85 03/09/19 16:00 T-piece T-piece 03/09/19 16:00 98.7 92 20 144/76 (98) 98 I&O Intake and Output 03/09/19 03/10/19 19:00 07:00 Intake Total 416.000 ml 851 ml Output Total 1600 ml 1850 ml Balance -1184.000 ml -999 ml Free Water 180 ml IV Total 330.000 ml 155 ml Tube Feeding 86 ml 516 ml Output Urine Total 1400 ml 1500 ml Stool Total 200 ml 150 ml Emesis 200 ml Dressing: dry Wound: clean Cardiovascular: RSR Respiratory: clear Abdomen: soft, flat, present bowel sounds Extremities: no tenderness, no cyanosis Laboratory Tests Test 03/10/19 05:20 White Blood Count 4.3 K/UL (4.8-10.8) #L Red Blood Count 3.05 M/UL (4.70-6.10) L Hemoglobin 8.8 G/DL (14.2-18.0) L Hematocrit 26.4 % (42.0-52.0) L Mean Corpuscular Volume 86 FL (80-99) Mean Corpuscular Hemoglobin 28.8 PG (27.0-31.0) Mean Corpuscular Hemoglobin Concent 33.3 G/DL (32.0-36.0) Red Cell Distribution Width 15.3 % (11.6-14.8) H Platelet Count 151 K/UL (150-450) Mean Platelet Volume 6.0 FL (6.5-10.1) L Neutrophils (%) (Auto) 61.7 % (45.0-75.0) Lymphocytes (%) (Auto) 23.0 % (20.0-45.0) Monocytes (%) (Auto) 13.5 % (1.0-10.0) H Eosinophils (%) (Auto) 1.0 % (0.0-3.0) Basophils (%) (Auto) 0.8 % (0.0-2.0) Sodium Level 138 MMOL/L (136-145) Potassium Level 3.9 MMOL/L (3.5-5.1) Chloride Level 101 MMOL/L (98-107) Carbon Dioxide Level 31 MMOL/L (21-32) Anion Gap 6 mmol/L (5-15) Blood Urea Nitrogen 19 mg/dL (7-18) H Creatinine 1.4 MG/DL (0.55-1.30) H Estimat Glomerular Filtration Rate 51.9 mL/min (>60) Glucose Level 190 MG/DL (74-106) H Calcium Level 8.4 MG/DL (8.5-10.1) L Total Bilirubin 0.4 MG/DL (0.2-1.0) Aspartate Amino Transf (AST/SGOT) 42 U/L (15-37) H Alanine Aminotransferase (ALT/SGPT) 52 U/L (12-78) Alkaline Phosphatase 175 U/L (46-116) H Total Protein 5.5 G/DL (6.4-8.2) L Albumin 2.4 G/DL (3.4-5.0) L Globulin 3.1 g/dL Albumin/Globulin Ratio 0.8 (1.0-2.7) L Plan Problems: (1) Hypoxia Assessment & Plan: Extensive bilateral upper lobe infiltrates likely inflammatory/infectious. Correlate clinically. Tuberculosis is not excludable. Bilateral pleural effusions. Endotracheal tube and nasogastric tube in good position Atherosclerotic vascular disease (2) Respiratory distress Assessment & Plan: off vent s/p trach improving (3) Sepsis Assessment & Plan: Sepsis with tachycardia, leukocytosis - resolved, abnormal labs, respiratory distress on vent Cont IV abx abnormal lft's improved US noted will cont to follow with recs trend labs Rx as written can start diet soon speech Moiz Rodriguez Mar 10, 2019 14:48
--- NOTE | 2019-03-10 15:27 | Nephrology Progress Note ---
Assessment/Plan Problem List: (1) ISH (acute kidney injury) Assessment: Cr lowering (2) HIV (human immunodeficiency virus infection) (3) NSTEMI (non-ST elevated myocardial infarction) Assessment: troponin decreasing (4) Hypoxia (5) Anemia (6) Diabetes Assessment Acute Renal failure- Cr leveling- Urine out put is good Acidosis improved Acute respiratory failure- Require intubation and Mechanical Ventilation- Anemia- Elevated troponin / RI HTN DM HIV Antibody + Plan Trach 03/02 mag and K and Phos supplement as needed adjust BP meds on feeding IV protonix transfusiosn as needed BP med adjustment UA and urine studies Avoid Nephrotoxics as possible Monitor renal parameters keep BP and BS in check Per orders No HD at this time Kidney RADHA noted adjust BP meds add Isordil Subjective ROS Limited/Unobtainable: Yes Objective Objective Last 24 Hour Vital Signs Date Time Temp Pulse Resp B/P (MAP) Pulse Ox O2 Delivery O2 Flow Rate FiO2 03/10/19 13:39 99 18 99 T-Piece 6.0 28 03/10/19 13:32 151/74 03/10/19 13:32 151/74 03/10/19 13:26 100 T-Piece 6.0 28 03/10/19 13:25 89 18 100 T-Piece 6.0 28 03/10/19 12:00 T-piece T-piece 03/10/19 12:00 98.4 89 20 151/74 (99) 98 03/10/19 11:38 86 03/10/19 10:23 94 134/69 03/10/19 09:25 100 03/10/19 08:00 T-piece T-piece 03/10/19 08:00 98.1 94 19 134/69 (90) 100 03/10/19 07:58 92 03/10/19 07:44 93 18 100 T-Piece 6.0 28 03/10/19 07:29 100 T-Piece 6.0 28 03/10/19 07:27 91 20 100 T-Piece 6.0 28 03/10/19 05:34 134/71 03/10/19 05:33 134/71 03/10/19 04:00 91 03/10/19 04:00 T-piece T-piece 03/10/19 04:00 99.2 82 24 134/71 (92) 99 03/10/19 01:05 92 18 100 T-Piece 6.0 28 03/10/19 01:05 100 T-Piece 6.0 28 03/10/19 00:52 93 22 100 T-Piece 8.0 28 03/10/19 00:00 T-piece T-piece 03/10/19 00:00 99.6 93 24 124/64 (84) 99 03/10/19 00:00 91 03/09/19 21:07 115/60 03/09/19 21:07 115/60 03/09/19 20:06 88 18 100 T-Piece 8.0 30 03/09/19 20:00 95 03/09/19 20:00 88 18 100 T-Piece 8.0 30 03/09/19 20:00 T-piece T-piece 03/09/19 20:00 99.2 94 24 115/60 (78) 99 03/09/19 19:59 100 T-Piece 8.0 30 03/09/19 19:50 90 18 99 T-Piece 6.0 28 03/09/19 16:00 85 03/09/19 16:00 T-piece T-piece 03/09/19 16:00 98.7 92 20 144/76 (98) 98 Intake and Output 03/09/19 03/10/19 19:00 07:00 Intake Total 416.000 ml 851 ml Output Total 1600 ml 1850 ml Balance -1184.000 ml -999 ml Free Water 180 ml IV Total 330.000 ml 155 ml Tube Feeding 86 ml 516 ml Output Urine Total 1400 ml 1500 ml Stool Total 200 ml 150 ml Emesis 200 ml Laboratory Tests 03/10/19 05:20: White Blood Count 4.3#L, Red Blood Count 3.05L, Hemoglobin 8.8L, Hematocrit 26.4L, Mean Corpuscular Volume 86, Mean Corpuscular Hemoglobin 28.8, Mean Corpuscular Hemoglobin Concent 33.3, Red Cell Distribution Width 15.3H, Platelet Count 151, Mean Platelet Volume 6.0L, Neutrophils (%) (Auto) 61.7, Lymphocytes (%) (Auto) 23.0, Monocytes (%) (Auto) 13.5H, Eosinophils (%) (Auto) 1.0, Basophils (%) (Auto) 0.8, Sodium Level 138, Potassium Level 3.9, Chloride Level 101, Carbon Dioxide Level 31, Anion Gap 6, Blood Urea Nitrogen 19H, Creatinine 1.4H, Estimat Glomerular Filtration Rate 51.9, Glucose Level 190H, Calcium Level 8.4L, Total Bilirubin 0.4, Aspartate Amino Transf (AST/SGOT) 42H, Alanine Aminotransferase (ALT/SGPT) 52, Alkaline Phosphatase 175H, Total Protein 5.5L, Albumin 2.4L, Globulin 3.1, Albumin/Globulin Ratio 0.8L Height (Feet): 6 Height (Inches): 0.00 Weight (Pounds): 252 General Appearance: no apparent distress EENT: other - trach Cardiovascular: tachycardia Respiratory/Chest: decreased breath sounds Abdomen: distended Objective no change Mike Mcdonald MD Mar 10, 2019 15:27
[2019-03-10 16:00] VITALS: BP 143/74
--- NOTE | 2019-03-10 16:46 | Infectious Diseases Prog Note ---
Assessment/Plan Assessment/Plan A) 1) pneumonia - ? aspiration/hcap, ? CAP, ? pneumocystis pna, ? fungal ( cryptococcus), sepsis, leukocytosis, ? 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, on anti-retroviral treatment 4) rule out TB pna, in isolation - afb smear on bronchoscopy is negative, TB spot negative 5) pmh noted - hypertension, ckd, anemia, dm, cva, tia, migraines 6) allergies - nkda, sh-negative, fh-nc, mar noted 7) d/w RN P) 1) vancomycin, diflucan, meropenem x 3 days - s/p pneumocystis treatment - f/u cultures negative - s/p trach - bactrim pcp prophylaxis - has been weaned off vent - clinically better 2) leukocytosis better, monitor labs and chest x-ray, no pressors, lgt noted 3) diarrhea but on stool softeners 4) weaning per pulmonary medicine 5) icu supportive care, vent support 6) skin care per protocol 7) anti-retroviral treatment for HIV 8) d/w pharmacy Subjective Constitutional: Reports: fatigue; Denies: fever HEENT: Reports: congestion Respiratory: Reports: shortness of breath Cardiovascular: Denies: chest pain Gastrointestinal/Abdominal: Denies: nausea, vomiting, diarrhea Genitourinary: Reports: other - + smith Neurologic: Denies: headache Psychiatric: Denies: depression Skin: Denies: rash Hematologic: Denies: bleeding Musculoskeletal: Denies: pain Allergies: Coded Allergies: No Known Allergies (Unverified , 02/05/13) Objective Vital Signs Last 24 Hour Vital Signs Date Time Temp Pulse Resp B/P (MAP) Pulse Ox O2 Delivery O2 Flow Rate FiO2 03/10/19 16:00 T-piece T-piece 03/10/19 13:39 99 18 99 T-Piece 6.0 03/10/19 13:32 151/74 03/10/19 13:32 151/74 03/10/19 13:26 100 T-Piece 6.0 03/10/19 13:25 89 18 100 T-Piece 6.0 03/10/19 12:00 T-piece T-piece 03/10/19 12:00 98.4 89 20 151/74 (99) 98 03/10/19 11:38 86 03/10/19 10:23 94 134/69 03/10/19 09:25 100 03/10/19 08:00 T-piece T-piece 03/10/19 08:00 98.1 94 19 134/69 (90) 100 03/10/19 07:58 92 03/10/19 07:44 93 18 100 T-Piece 6.0 28 03/10/19 07:29 100 T-Piece 6.0 28 03/10/19 07:27 91 20 100 T-Piece 6.0 28 03/10/19 05:34 134/71 03/10/19 05:33 134/71 03/10/19 04:00 91 03/10/19 04:00 T-piece T-piece 03/10/19 04:00 99.2 82 24 134/71 (92) 99 03/10/19 01:05 92 18 100 T-Piece 6.0 03/10/19 01:05 100 T-Piece 6.0 28 03/10/19 00:52 93 22 100 T-Piece 8.0 28 03/10/19 00:00 T-piece T-piece 03/10/19 00:00 99.6 93 24 124/64 (84) 99 03/10/19 00:00 91 03/09/19 21:07 115/60 03/09/19 21:07 115/60 03/09/19 20:06 88 18 100 T-Piece 8.0 30 03/09/19 20:00 95 03/09/19 20:00 88 18 100 T-Piece 8.0 30 03/09/19 20:00 T-piece T-piece 03/09/19 20:00 99.2 94 24 115/60 (78) 99 03/09/19 19:59 100 T-Piece 8.0 30 03/09/19 19:50 90 18 99 T-Piece 6.0 28 Height (Feet): 6 Height (Inches): 0.00 Weight (Pounds): 252 General Appearance: no acute distress HEENT: normocephalic, atraumatic, anicteric Respiratory/Chest: crackles/rales, rhonchi - bilaterally Cardiovascular: normal rate, regular rhythm, no gallop/murmur, no JVD Abdomen: normal bowel sounds, soft, non tender, no organomegaly, non distended Genitourinary: other - + smiht Extremities: no cyanosis Skin: no rash Neurologic/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 Enteric tube courses past the diaphragm and out of the field of view. Lungs/pleura: Slightly decreased but persistent patchy consolidations in the right lung. Slightly decreased left perihilar opacities/consolidations. Possible small bilateral pleural effusions. Heart/mediastinum: Stable mild enlargement of the cardiomediastinal silhouette. Soft tissues: Unremarkable. Bones: No acute fracture. Degenerative changes of the visualized right acromioclavicular joint. Degenerative changes of the spine. Upper abdomen: Normal. 02/11/19 - chest x-ray - IMPRESSION: Slightly decreased but persistent patchy consolidations in the right lung. Slightly decreased left perihilar opacities. Findings may IMPRESSION: 1. No significant change in the interstitial and alveolar opacities in bilateral lungs. 2. Possible small bilateral pleural effusions, unchanged. represent infectious/inflammatory process and/or pulmonary edema. Possible small bilateral pleural effusions. 02/16/19 - chest x-ray - Impression: Worsening of aeration with increasing interstitial and bilateral predominantly perihilar airspace disease. Findings likely related to worsening CHF/pulmonary edema. Superimposed pneumonia to be excluded clinically. Follow-up recommended. Chest x-ray - 02/18/19 - COMPARISON: Chest radiograph on 02/16/2019 FINDINGS: Hardware: Endotracheal tube terminates in the region of the mid thoracic trachea. Enteric tube courses past the diaphragm and out of the field of view. Lungs/pleura: Slightly decreased but persistent hazy and interstitial opacities. Persistent small left pleural effusion. Heart/mediastinum: Stable mild enlargement of the cardiomediastinal silhouette. Soft tissues: Unremarkable. Bones: No acute fracture. Upper abdomen: Normal. IMPRESSION: Slightly decreased but persistent changes suggesting pulmonary edema. Component of infectious/inflammatory process is not excluded. Persistent small left pleural effusion. Chest x-ray - 02/20/19 - Procedure: XRAY Chest 1v Indication: Dyspnea Comparison: Earlier same day A single view chest radiograph was obtained. Findings: Intubation noted. The endotracheal tube is in good position about 3 cm above the christal. Cardiomegaly again noted. Moderate pulmonary vascular congestion demonstrated. IMPRESSION: Endotracheal tube in good position. CHF Chest x-ray - - FINDINGS: The tip of the endotracheal tube is appropriately positioned, projecting between the clavicular heads. The sidehole of the enteric tube projects within the stomach. Extensive bilateral consolidation is again noted. Favor multilobar pneumonia. Heart size is borderline, but likely exaggerated by portable technique. No pneumothorax. Bony degenerative changes. IMPRESSION: Extensive airspace consolidation, similar to prior. Favor multilobar pneumonia. Appropriately positioned tubes. Chest x-ray - 02/24/19 - IMPRESSION: No significant interval change compared to the prior chest x-ray. Cardiomegaly with diffuse interstitial and alveolar opacities, which may represent pulmonary edema versus pneumonia. Chest x-ray - 02/26/19 - IMPRESSION: No significant interval change compared to the prior chest x-ray. Cardiomegaly with diffuse interstitial and alveolar opacities, which may represent pulmonary edema versus pneumonia. Chest x-ray - 03/03/19 - Comparison: 02/26/2019 A single view chest radiograph was obtained. Findings: Central hilar edema with cephalization of pulmonary vessels and interstitial opacities likely due to CHF demonstrated. There is a probable left pleural effusion. NG tube and tracheostomy noted in good position. IMPRESSION: Status post tracheostomy. No pneumothorax Pulmonary edema. Chest x-ray - 03/07/19 - A single view chest radiograph was obtained. Findings: There is enlargement of the cardiac silhouette with pulmonary vascular redistribution and prominence, hazy vessel margins and the suggestion of interstitial edema consistent with CHF. Tracheostomy noted. PICC line is in good position unchanged. IMPRESSION: CHF unchanged Microbiology Date/Time Source Procedure Growth Status 03/03/19 12:40 Blood Blood Culture - Final NO GROWTH AFTER 5 DAYS Complete 03/01/19 20:00 Sputum Induced Gram Stain - Final Complete 03/01/19 20:00 Sputum Induced Sputum Culture - Final NORMAL UPPER RESPIRATORY ADRIANA AT 48 ... Complete 03/03/19 18:00 Indwelling Cath Urine Culture - Final NO GROWTH AFTER 48 HOURS Complete 02/06/19 17:10 Rectal Mucosa - Final NO CARBAPENEM-RESISTANT ENTEROBACTERI... Complete Laboratory Tests Test 03/10/19 05:20 White Blood Count 4.3 K/UL (4.8-10.8) #L Red Blood Count 3.05 M/UL (4.70-6.10) L Hemoglobin 8.8 G/DL (14.2-18.0) L Hematocrit 26.4 % (42.0-52.0) L Mean Corpuscular Volume 86 FL (80-99) Mean Corpuscular Hemoglobin 28.8 PG (27.0-31.0) Mean Corpuscular Hemoglobin Concent 33.3 G/DL (32.0-36.0) Red Cell Distribution Width 15.3 % (11.6-14.8) H Platelet Count 151 K/UL (150-450) Mean Platelet Volume 6.0 FL (6.5-10.1) L Neutrophils (%) (Auto) 61.7 % (45.0-75.0) Lymphocytes (%) (Auto) 23.0 % (20.0-45.0) Monocytes (%) (Auto) 13.5 % (1.0-10.0) H Eosinophils (%) (Auto) 1.0 % (0.0-3.0) Basophils (%) (Auto) 0.8 % (0.0-2.0) Sodium Level 138 MMOL/L (136-145) Potassium Level 3.9 MMOL/L (3.5-5.1) Chloride Level 101 MMOL/L (98-107) Carbon Dioxide Level 31 MMOL/L (21-32) Anion Gap 6 mmol/L (5-15) Blood Urea Nitrogen 19 mg/dL (7-18) H Creatinine 1.4 MG/DL (0.55-1.30) H Estimat Glomerular Filtration Rate 51.9 mL/min (>60) Glucose Level 190 MG/DL (74-106) H Calcium Level 8.4 MG/DL (8.5-10.1) L Total Bilirubin 0.4 MG/DL (0.2-1.0) Aspartate Amino Transf (AST/SGOT) 42 U/L (15-37) H Alanine Aminotransferase (ALT/SGPT) 52 U/L (12-78) Alkaline Phosphatase 175 U/L (46-116) H Total Protein 5.5 G/DL (6.4-8.2) L Albumin 2.4 G/DL (3.4-5.0) L Globulin 3.1 g/dL Albumin/Globulin Ratio 0.8 (1.0-2.7) L Current Medications Medications (Trade) Dose Ordered Sig/Marquis Route PRN Reason Start Time Stop Time Status Last Admin Dose Admin Acetaminophen/ Butalbital/ Caffeine (Fioricet) 1 tab Q8H PRN ORAL For Headache 03/09/19 15:42 04/08/19 15:41 Albuterol/ Ipratropium (Albuterol/ Ipratropium) 3 ml Q6HRT HHN 03/09/19 07:00 03/13/19 19:14 03/10/19 13:25 Amlodipine Besylate (Norvasc) 10 mg DAILY NG 03/09/19 09:00 03/14/19 15:59 03/10/19 10:23 Artificial Tears (Lacri-Lube) 1 applic AC+HS BOTH EYES 03/09/19 11:30 03/20/19 06:29 03/10/19 12:43 Chlorhexidine Gluconate (Jessy-Hex 2%) 1 applic DAILY@2000 TOPIC 03/09/19 20:00 03/27/19 19:59 03/09/19 21:05 Clonidine HCl (Catapres tab) 0.2 mg EVERY 8 HOURS NG 03/09/19 14:00 03/19/19 13:59 03/10/19 13:32 Dextrose (Dextrose 50%) 25 ml Q30M PRN IV Hypoglycemia 03/09/19 07:15 03/31/19 07:14 Dextrose (Dextrose 50%) 50 ml Q30M PRN IV Hypoglycemia 03/09/19 07:15 03/31/19 07:14 Docusate Sodium (Colace) 100 mg TID GT 03/09/19 09:00 03/12/19 08:59 Fluconazole/ Sodium Chloride 100 ml @ 100 mls/hr Q24H IV 03/09/19 18:00 03/15/19 17:59 03/09/19 19:45 Heparin Sodium (Porcine) (Heparin 5000 units/ml) 5,000 units EVERY 12 HOURS SUBQ 03/09/19 09:00 04/05/19 20:59 03/10/19 08:45 Hydralazine HCl (Apresoline) 10 mg Q4H PRN IV bp over 165 syst 03/09/19 08:00 03/19/19 07:59 Hydralazine HCl (Apresoline) 50 mg Q8HR NG 03/09/19 14:00 03/21/19 21:59 03/10/19 13:32 Insulin Aspart (NovoLOG) EVERY 6 HOURS SUBQ 03/09/19 12:00 03/28/19 11:59 03/10/19 12:50 Insulin Detemir (Levemir) 10 units Q12HR SUBQ 03/09/19 09:00 04/01/19 20:59 03/10/19 08:46 Lorazepam (Ativan 2mg/ml 1ml) 2 mg Q2H PRN IV For Anxiety 03/09/19 07:45 03/13/19 19:44 03/10/19 14:40 Meropenem 1 gm/ Sodium Chloride 55 ml @ 110 mls/hr Q12HR IVPB 03/09/19 09:00 03/11/19 20:59 03/10/19 10:23 Metoclopramide HCl (Reglan) 5 mg Q8H IVP 03/09/19 09:00 03/28/19 08:59 03/10/19 08:44 Metolazone (Zaroxolyn) 10 mg DAILY NG 03/09/19 09:00 03/21/19 09:59 03/10/19 10:23 Midazolam HCl (Versed 2mg/2ml vial) 1 mg Q2H PRN IVP Agitation 03/09/19 08:00 03/15/19 07:59 Pantoprazole (Protonix) 40 mg DAILY IVP 03/09/19 09:00 03/24/19 20:59 03/10/19 08:44 Patient Own Medication (Patient's Own Med) 1 ea BID ORAL 03/09/19 09:00 04/08/19 08:59 03/10/19 10:30 Patient Own Medication (Patient's Own Med) 1 ea DAILY ORAL 03/09/19 09:00 04/08/19 08:59 03/10/19 10:29 Patient Own Medication (Patient's Own Med) 2 ea DAILY ORAL 03/09/19 09:00 04/08/19 08:59 03/10/19 10:29 Quetiapine Fumarate (SEROquel) 25 mg Q12HR ORAL 03/09/19 09:00 04/07/19 20:59 03/10/19 10:23 Sennosides (Senokot) 8.6 mg DAILY ORAL 03/09/19 09:00 03/15/19 11:59 Trimethoprim/ Sulfamethoxazole (Bactrim-DS) 1 tab DAILY ORAL 03/09/19 09:00 03/11/19 08:59 03/10/19 10:23 Vancomycin HCl (Vanco rx to dose) 1 ea DAILY PRN MISC Per rx protocol 03/09/19 09:00 04/02/19 10:59 Vancomycin HCl 1.5 gm/Sodium Chloride 275 ml @ 137.5 mls/ hr Q24H IVPB 03/10/19 08:00 03/15/19 07:59 03/10/19 10:23 Russ Tony MD Mar 10, 2019 16:46
--- NOTE | 2019-03-10 17:55 | Pulmonology Progress Note ---
Assessment/Plan Assessment/Plan Assessment/Plan: VDRF, extubated 02/19, re-intubated 02/20, trach 03/02, trach collar 03/07 S/P GT 03/05 Hemoptysis, hematemesis ARDS Acute respiratory failure B pulmonary infiltrates, ? multilobar CAP vs atypical infection vs other ? PJP AIDS (CD4 191) NSTEMI H/O prior CVA HTN HL DM with uncontrolled BS ISH on CKD Anemia, FOBT + PLAN: TC as able, return to vent if fatigues RTC and PRN HHN's Continue Abx & flucon per ID Off steroids Monitor volumes and renal function, cautious diuresis as able F/U cards recs: will need further ischemia eval/cath once stabilized DVT Px: Hep SQ Monitor for bleeding, F/U GI recs, transfuse PRN Hb < 7 F/U ENDO recs TF's FC, continue to discuss GOC Monitor MS Subjective ROS Limited/Unobtainable: Yes Allergies: Coded Allergies: No Known Allergies (Unverified , 02/05/13) Subjective sleeping this am on TC adn tolerting no reports of cp nv or bleeding not getting oob still iwth some secretions Objective Last 24 Hour Vital Signs Date Time Temp Pulse Resp B/P (MAP) Pulse Ox O2 Delivery O2 Flow Rate FiO2 03/10/19 16:00 T-piece T-piece 03/10/19 15:28 90 03/10/19 13:39 99 18 99 T-Piece 6.0 03/10/19 13:32 151/74 03/10/19 13:32 151/74 03/10/19 13:26 100 T-Piece 6.0 03/10/19 13:25 89 18 100 T-Piece 6.0 28 03/10/19 12:00 T-piece T-piece 03/10/19 12:00 98.4 89 20 151/74 (99) 98 03/10/19 11:38 86 03/10/19 10:23 94 134/69 03/10/19 09:25 100 03/10/19 08:00 T-piece T-piece 03/10/19 08:00 98.1 94 19 134/69 (90) 100 03/10/19 07:58 92 03/10/19 07:44 93 18 100 T-Piece 6.0 03/10/19 07:29 100 T-Piece 6.0 28 03/10/19 07:27 91 20 100 T-Piece 6.0 28 03/10/19 05:34 134/71 03/10/19 05:33 134/71 03/10/19 04:00 91 03/10/19 04:00 T-piece T-piece 03/10/19 04:00 99.2 82 24 134/71 (92) 99 03/10/19 01:05 92 18 100 T-Piece 6.0 28 03/10/19 01:05 100 T-Piece 6.0 28 03/10/19 00:52 93 22 100 T-Piece 8.0 28 03/10/19 00:00 T-piece T-piece 03/10/19 00:00 99.6 93 24 124/64 (84) 99 03/10/19 00:00 91 03/09/19 21:07 115/60 03/09/19 21:07 115/60 03/09/19 20:06 88 18 100 T-Piece 8.0 30 03/09/19 20:00 95 03/09/19 20:00 88 18 100 T-Piece 8.0 30 03/09/19 20:00 T-piece T-piece 03/09/19 20:00 99.2 94 24 115/60 (78) 99 03/09/19 19:59 100 T-Piece 8.0 30 03/09/19 19:50 90 18 99 T-Piece 6.0 28 Intake and Output 03/09/19 03/10/19 19:00 07:00 Intake Total 416.000 ml 851 ml Output Total 1600 ml 1850 ml Balance -1184.000 ml -999 ml Free Water 180 ml IV Total 330.000 ml 155 ml Tube Feeding 86 ml 516 ml Output Urine Total 1400 ml 1500 ml Stool Total 200 ml 150 ml Emesis 200 ml General Appearance: WD/WN Respiratory/Chest: normal breath sounds, rhonchi Cardiovascular: normal rate, regular rhythm Abdomen: soft, non tender, no organomegaly Skin: no rash Neurologic/Psychiatric: alert Laboratory Tests 03/10/19 05:20: White Blood Count 4.3#L, Red Blood Count 3.05L, Hemoglobin 8.8L, Hematocrit 26.4L, Mean Corpuscular Volume 86, Mean Corpuscular Hemoglobin 28.8, Mean Corpuscular Hemoglobin Concent 33.3, Red Cell Distribution Width 15.3H, Platelet Count 151, Mean Platelet Volume 6.0L, Neutrophils (%) (Auto) 61.7, Lymphocytes (%) (Auto) 23.0, Monocytes (%) (Auto) 13.5H, Eosinophils (%) (Auto) 1.0, Basophils (%) (Auto) 0.8, Sodium Level 138, Potassium Level 3.9, Chloride Level 101, Carbon Dioxide Level 31, Anion Gap 6, Blood Urea Nitrogen 19H, Creatinine 1.4H, Estimat Glomerular Filtration Rate 51.9, Glucose Level 190H, Calcium Level 8.4L, Total Bilirubin 0.4, Aspartate Amino Transf (AST/SGOT) 42H, Alanine Aminotransferase (ALT/SGPT) 52, Alkaline Phosphatase 175H, Total Protein 5.5L, Albumin 2.4L, Globulin 3.1, Albumin/Globulin Ratio 0.8L Current Medications Medications (Trade) Dose Ordered Sig/Marquis Route PRN Reason Start Time Stop Time Status Last Admin Dose Admin Acetaminophen/ Butalbital/ Caffeine (Fioricet) 1 tab Q8H PRN ORAL For Headache 03/09/19 15:42 04/08/19 15:41 Albuterol/ Ipratropium (Albuterol/ Ipratropium) 3 ml Q6HRT HHN 03/09/19 07:00 03/13/19 19:14 03/10/19 13:25 Amlodipine Besylate (Norvasc) 10 mg DAILY NG 03/09/19 09:00 03/14/19 15:59 03/10/19 10:23 Artificial Tears (Lacri-Lube) 1 applic AC+HS BOTH EYES 03/09/19 11:30 03/20/19 06:29 03/10/19 17:35 Chlorhexidine Gluconate (Jessy-Hex 2%) 1 applic DAILY@1999 TOPIC 03/09/19 20:00 03/27/19 19:59 03/09/19 21:05 Clonidine HCl (Catapres tab) 0.2 mg EVERY 8 HOURS NG 03/09/19 14:00 03/19/19 13:59 03/10/19 13:32 Dextrose (Dextrose 50%) 25 ml Q30M PRN IV Hypoglycemia 03/09/19 07:15 03/31/19 07:14 Dextrose (Dextrose 50%) 50 ml Q30M PRN IV Hypoglycemia 03/09/19 07:15 03/31/19 07:14 Docusate Sodium (Colace) 100 mg TID GT 03/09/19 09:00 03/12/19 08:59 Fluconazole/ Sodium Chloride 100 ml @ 100 mls/hr Q24H IV 03/09/19 18:00 03/15/19 17:59 03/10/19 17:41 Heparin Sodium (Porcine) (Heparin 5000 units/ml) 5,000 units EVERY 12 HOURS SUBQ 03/09/19 09:00 04/05/19 20:59 03/10/19 08:45 Hydralazine HCl (Apresoline) 10 mg Q4H PRN IV bp over 165 syst 03/09/19 08:00 03/19/19 07:59 Hydralazine HCl (Apresoline) 50 mg Q8HR NG 03/09/19 14:00 03/21/19 21:59 03/10/19 13:32 Insulin Aspart (NovoLOG) EVERY 6 HOURS SUBQ 03/09/19 12:00 03/28/19 11:59 03/10/19 17:36 Insulin Detemir (Levemir) 10 units Q12HR SUBQ 03/09/19 09:00 04/01/19 20:59 03/10/19 08:46 Lorazepam (Ativan 2mg/ml 1ml) 2 mg Q2H PRN IV For Anxiety 03/09/19 07:45 03/13/19 19:44 03/10/19 14:40 Meropenem 1 gm/ Sodium Chloride 55 ml @ 110 mls/hr Q12HR IVPB 03/10/19 21:00 03/13/19 08:59 Metoclopramide HCl (Reglan) 5 mg Q8H IVP 03/09/19 09:00 03/28/19 08:59 03/10/19 17:41 Metolazone (Zaroxolyn) 10 mg DAILY NG 03/09/19 09:00 03/21/19 09:59 03/10/19 10:23 Midazolam HCl (Versed 2mg/2ml vial) 1 mg Q2H PRN IVP Agitation 03/09/19 08:00 03/15/19 07:59 Pantoprazole (Protonix) 40 mg DAILY IVP 03/09/19 09:00 03/24/19 20:59 03/10/19 08:44 Patient Own Medication (Patient's Own Med) 1 ea BID ORAL 03/09/19 09:00 04/08/19 08:59 03/10/19 17:41 Patient Own Medication (Patient's Own Med) 1 ea DAILY ORAL 03/09/19 09:00 04/08/19 08:59 03/10/19 10:29 Patient Own Medication (Patient's Own Med) 2 ea DAILY ORAL 03/09/19 09:00 04/08/19 08:59 03/10/19 10:29 Quetiapine Fumarate (SEROquel) 25 mg Q12HR ORAL 03/09/19 09:00 04/07/19 20:59 03/10/19 10:23 Sennosides (Senokot) 8.6 mg DAILY ORAL 03/09/19 09:00 03/15/19 11:59 Trimethoprim/ Sulfamethoxazole (Bactrim-DS) 1 tab DAILY ORAL 03/09/19 09:00 03/11/19 08:59 03/10/19 10:23 Vancomycin HCl (Vanco rx to dose) 1 ea DAILY PRN MISC Per rx protocol 03/09/19 09:00 04/02/19 10:59 Vancomycin HCl 1.5 gm/Sodium Chloride 275 ml @ 137.5 mls/ hr Q24H IVPB 03/10/19 08:00 03/15/19 07:59 03/10/19 10:23 So Webb DO Mar 10, 2019 17:55
--- NOTE | 2019-03-10 19:37 | NUR ---
HAND-OFF: Report given to TESSA Ramires.
--- NOTE | 2019-03-10 19:38 | NUR ---
NURSE NOTES: Endorsement received from TESSA Noel. Patient asleep, arousable per pain. Drowsy. With Trache, Shiley 8.0. On oxygen via cool aerosol, 28%. No shortness of breath. With right upper arm PICC. Red port noted with difficulty to flush. G tube patent and intact. Receiving Glucerna 1.5 43 ml/hr. With Simon catheter, rectal tube. Bilateral soft wrists restraints for attempting to pull out tubes. SCDs in place. On P200 mattress. Head of bed elevated. Bed locked and in low position. Bed alarm on. Call light within reach.
[2019-03-10 20:00] VITALS: BP 132/59
[2019-03-10] MEDS: Dyna-Hex 2% Top Sol 2oz TOPIC SCH (20:36)
--- NOTE | 2019-03-10 22:47 | Neurology Progress Note ---
Interim History Interim History ROS Limited/Unobtainable: Yes Complaints: AMS Interim History alert, off vent today Objective Physical Exam Last Vital Signs Date Time Temp Pulse Resp B/P (MAP) Pulse Ox O2 Delivery O2 Flow Rate FiO2 03/10/19 21:55 132/59 03/10/19 20:00 98.8 89 23 99 03/10/19 20:00 T-piece T-piece 03/10/19 19:22 6.0 28 Laboratory Tests Test 03/10/19 05:20 White Blood Count 4.3 K/UL (4.8-10.8) #L Red Blood Count 3.05 M/UL (4.70-6.10) L Hemoglobin 8.8 G/DL (14.2-18.0) L Hematocrit 26.4 % (42.0-52.0) L Mean Corpuscular Volume 86 FL (80-99) Mean Corpuscular Hemoglobin 28.8 PG (27.0-31.0) Mean Corpuscular Hemoglobin Concent 33.3 G/DL (32.0-36.0) Red Cell Distribution Width 15.3 % (11.6-14.8) H Platelet Count 151 K/UL (150-450) Mean Platelet Volume 6.0 FL (6.5-10.1) L Neutrophils (%) (Auto) 61.7 % (45.0-75.0) Lymphocytes (%) (Auto) 23.0 % (20.0-45.0) Monocytes (%) (Auto) 13.5 % (1.0-10.0) H Eosinophils (%) (Auto) 1.0 % (0.0-3.0) Basophils (%) (Auto) 0.8 % (0.0-2.0) Sodium Level 138 MMOL/L (136-145) Potassium Level 3.9 MMOL/L (3.5-5.1) Chloride Level 101 MMOL/L (98-107) Carbon Dioxide Level 31 MMOL/L (21-32) Anion Gap 6 mmol/L (5-15) Blood Urea Nitrogen 19 mg/dL (7-18) H Creatinine 1.4 MG/DL (0.55-1.30) H Estimat Glomerular Filtration Rate 51.9 mL/min (>60) Glucose Level 190 MG/DL (74-106) H Calcium Level 8.4 MG/DL (8.5-10.1) L Total Bilirubin 0.4 MG/DL (0.2-1.0) Aspartate Amino Transf (AST/SGOT) 42 U/L (15-37) H Alanine Aminotransferase (ALT/SGPT) 52 U/L (12-78) Alkaline Phosphatase 175 U/L (46-116) H Total Protein 5.5 G/DL (6.4-8.2) L Albumin 2.4 G/DL (3.4-5.0) L Globulin 3.1 g/dL Albumin/Globulin Ratio 0.8 (1.0-2.7) L General: well developed, well nourished, other Head: normocophalic, other Neck: no rigidity EENT: benign, other Neurologic Exam Mental Status: awake, other Speech: other Language: other Cranial Nerve II: other Cranial Nerves III, IV, : other Cranial Nerve V: other Cranial Nerve VII: other Cranial Nerve VIII: other Cranial Nerve IX: other Cranial Nerve X: other Cranial Nerve XI: other Cranial Nerve XII: other Motor System: other Sensory: other Coordination: other Deep Tendon Reflexes: 0 bicep (L), 0 bicep (R), 0 tricep (L), 0 tricep (R), 0 brachioradialis (L), 0 brachioradialis (R), 0 knee (L), 0 knee (R), 0 ankle (L) , 0 ankle (R) Reflexes: mute plantar (L), mute plantar (R) Stance: other Gait: other Objective sp trach awake, can tell me his name pupils are symmetric and reactive corneals present Antigravity in all 4 symmetric Impression/Recommendations Problems: (1) AIDS (2) Anemia (3) Anxiety (4) Diabetes (5) Hypertension (6) HIV disease (7) CKD (chronic kidney disease) (8) History of stroke (9) NSTEMI (non-ST elevated myocardial infarction) (10) MDD (major depressive disorder), recurrent episode, moderate (11) Respiratory distress (12) Hypoxia (13) HIV (human immunodeficiency virus infection) (14) Acute coronary syndrome (15) Elevated troponin (16) Pneumonia (17) Acute hypoxemic respiratory failure (18) Endotracheally intubated (19) ISH (acute kidney injury) (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 (33) acute small R pontomedullary and left cerebellar peduncle strokes. 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
[2019-03-11] VITALS: BP 125/65
--- NOTE | 2019-03-11 | NUR ---
NURSE NOTES: Patient asleep. No shortness of breath. Calm, no signs and symptoms of any pain. No redness at elbows as previously documented. Head of bed kept elevated. Tolerating GT feeding.
[2019-03-11] MEDS: Albuterol/Ipratropium 3ml neb HHN SCH ×4 (00:33→19:13)
[2019-03-11] MEDS: NovoLOG Insulin Flexpen SUBQ SCH ×5 (00:44→23:46)
[2019-03-11] MEDS: Metoclopramide 10mg/2ml Inj IVP SCH ×3 (00:45→18:26)
[2019-03-11 04:00] VITALS: BP 142/86
--- NOTE | 2019-03-11 04:00 | NUR ---
NURSE NOTES: Bed bath, oral care done. Right upper back with skin tear as previously documented, improving.
[2019-03-11] MEDS: cloNIDine 0.2mg Tab NG SCH ×3 (06:08→21:26)
[2019-03-11] MEDS: HydrALAZINE 50mg tab NG SCH ×3 (06:08→21:26)
[2019-03-11] MEDS: Lacri-Lube Opth Oint 3.5gm BOTH EYES SCH ×4 (06:08→20:27)
[2019-03-11 06:11] LABS: BASOPHILS % (AUTO) 0.7 % (0.0-2.0); HEMATOCRIT 26.1 % (42.0-52.0); HEMOGLOBIN 8.7 G/DL (14.2-18.0); MEAN CORPUSCULAR VOLUME 86 FL (80-99); MONOCYTES % (AUTO) 12.4 % (1.0-10.0); NEUTROPHILS % (AUTO) 51.9 % (45.0-75.0); PLATELET COUNT 166 K/UL (150-450); RED BLOOD COUNT 3.03 M/UL (4.70-6.10); RED CELL DISTRIBUTION WIDTH 15.7 % (11.6-14.8); WHITE BLOOD COUNT 3.8 K/UL (4.8-10.8)
[2019-03-11 06:33] LABS: ALANINE AMINOTRANSFERASE 49 U/L (12-78); ALBUMIN 2.1 G/DL (3.4-5.0); ALBUMIN/GLOBULIN RATIO 0.6 (1.0-2.7); ALKALINE PHOSPHATASE 157 U/L (46-116); ANION GAP 6 mmol/L (5-15); ASPARTATE AMINO TRANSFERASE 37 U/L (15-37); BILIRUBIN,TOTAL 0.4 MG/DL (0.2-1.0); BLOOD UREA NITROGEN 17 mg/dL (7-18); CALCIUM 8.5 MG/DL (8.5-10.1); CARBON DIOXIDE 29 MMOL/L (21-32); CHLORIDE 103 MMOL/L (98-107); CREATININE 1.3 MG/DL (0.55-1.30); PHOSPHORUS 2.4 MG/DL (2.5-4.9); POTASSIUM 3.6 MMOL/L (3.5-5.1); SODIUM 138 MMOL/L (136-145)
--- NOTE | 2019-03-11 07:15 | NUR ---
NURSE NOTES: RECEIVED PT WITH HOB ELEVATED 45 DEGREE ,AWAKE AND ALERT BUT WITH PERIODS OF CONFUSION.PT ABLE TO FALLOWS SIMPLE COMMANDS.PT WITH TRACH SHILEY 8.0 AT MID-LINE PATENT AND WELL SECURE.PT WITH T-PIECE, RECEIVING O2 VIA COOL AEROSOL, SAT 97%. RENDERED TRACH CARE AND ORAL HYGIENE.PT WITH GTF RECEIVING GLUCERNA 1.5 @ 43CC/HRS,NO RESIDUAL NOTED AT THIS TIME.PT WITH BILAT SOFT WRIST RESTRAINTS IN PLACE,RELEASED AND PROVIDE P-ROM TO ALL EXTREMITIES.PT PLACE IN BIG CHAIR REQUIRED MAXIMUN ASSISTANCE.PT WITH F/C IN PLACE DRAINING WELL ALSO RECTAL IN PLACE.PT REMAINS FREE OF INJURIES .WILL CONT TO MONITOR.
--- NOTE | 2019-03-11 07:29 | NUR ---
HAND-OFF: Report given to TESSA Mobley
[2019-03-11 08:00] VITALS: BP 113/64
[2019-03-11] MEDS: Vancomycin 1.5 GM in NS 275 ML IVPB SCH (08:11)
[2019-03-11] MEDS: Docusate 100mg/10ml Liq GT SCH ×3 (09:39→18:25)
[2019-03-11] MEDS: ETRAVIRINE 200 MG ORAL SCH (09:41)
[2019-03-11] MEDS: TENOFOVIR DISOPROXIL FUMARATE 300 MG ORAL SCH (09:41)
[2019-03-11] MEDS: RALTEGRAVIR 400 MG ORAL SCH ×2 (09:41→18:27)
[2019-03-11] MEDS: Levemir Flexpen SUBQ SCH ×2 (09:44→20:34)
[2019-03-11] MEDS: Heparin 5000 units/ml inj SUBQ SCH ×2 (09:45→20:33)
[2019-03-11] MEDS: Sennosides 8.6mg tab ORAL SCH (09:58)
[2019-03-11] MEDS: Pantoprazole Inj IVP SCH (10:05)
--- NOTE | 2019-03-11 10:38 | Pulmonology Progress Note ---
Assessment/Plan Assessment/Plan Assessment/Plan: VDRF, extubated 02/19, re-intubated 02/20, trach 03/02, trach collar 03/07 S/P GT 03/05 Hemoptysis, hematemesis ARDS Acute respiratory failure B pulmonary infiltrates, ? multilobar CAP vs atypical infection vs other ? PJP AIDS (CD4 191) NSTEMI H/O prior CVA HTN, HL DM with uncontrolled BS ISH on CKD Anemia, FOBT + PLAN: TC as able, return to vent if fatigues RTC and PRN HHN's Continue Abx & flucon per ID Off steroids Monitor volumes and renal function, cautious diuresis as able F/U cards recs: will need further ischemia eval/cath once stabilized DVT Px: Hep SQ Monitor for bleeding, F/U GI recs, transfuse PRN Hb < 7 F/U ENDO recs TF's ? swallow FC, continue to discuss GOC Monitor MS Subjective ROS Limited/Unobtainable: Yes Allergies: Coded Allergies: No Known Allergies (Unverified , 02/05/13) Subjective awake this am on TC and tolerating no reports of cp nv or bleeding not getting oob still iwth some secretions Objective Last 24 Hour Vital Signs Date Time Temp Pulse Resp B/P (MAP) Pulse Ox O2 Delivery O2 Flow Rate FiO2 03/11/19 09:40 110 113/64 03/11/19 08:37 100 03/11/19 08:00 98.4 110 24 113/64 (80) 97 03/11/19 08:00 98.4 110 24 113/64 (80) 97 03/11/19 07:19 78 18 100 T-Piece 6.0 03/11/19 07:00 66 18 100 T-Piece 6.0 26 03/11/19 07:00 100 T-Piece 6.0 28 03/11/19 06:08 142/86 03/11/19 06:08 142/86 03/11/19 04:00 T-piece T-piece 03/11/19 04:00 98.4 90 23 142/86 (104) 97 03/11/19 04:00 90 03/11/19 00:44 86 20 99 T-Piece 6.0 28 03/11/19 00:34 84 20 99 T-Piece 6.0 03/11/19 00:33 99 T-Piece 6.0 28 03/11/19 00:00 98.5 83 23 125/65 (85) 97 03/11/19 00:00 T-piece T-piece 03/11/19 00:00 84 03/10/19 21:55 132/59 03/10/19 21:54 132/59 03/10/19 20:00 98.8 89 23 132/59 (83) 99 03/10/19 20:00 T-piece T-piece 03/10/19 20:00 90 03/10/19 19:22 89 20 99 T-Piece 6.0 28 03/10/19 19:13 99 T-Piece 6.0 28 03/10/19 19:12 88 20 99 T-Piece 6.0 28 03/10/19 16:00 98.2 81 26 143/74 (97) 99 03/10/19 16:00 T-piece T-piece 03/10/19 15:28 90 03/10/19 13:39 99 18 99 T-Piece 6.0 28 03/10/19 13:32 151/74 03/10/19 13:32 151/74 03/10/19 13:26 100 T-Piece 6.0 28 03/10/19 13:25 89 18 100 T-Piece 6.0 03/10/19 12:00 T-piece T-piece 03/10/19 12:00 98.4 89 20 151/74 (99) 98 03/10/19 11:38 86 Intake and Output 03/10/19 03/11/19 18:59 06:59 Intake Total 1206.0 ml 751 ml Output Total 1550 ml 1300 ml Balance -344.0 ml -549 ml IV Total 430.0 ml 55 ml Tube Feeding 516 ml 516 ml Other 260 ml 180 ml Output Urine Total 1450 ml 1300 ml Stool Total 100 ml General Appearance: WD/WN HEENT: status post trach Respiratory/Chest: rhonchi Cardiovascular: normal rate, regular rhythm Abdomen: soft, non tender, no organomegaly Neurologic/Psychiatric: alert, oriented x 3, responsive Laboratory Tests 03/11/19 04:30: White Blood Count 3.8L, Red Blood Count 3.03L, Hemoglobin 8.7L, Hematocrit 26.1L , Mean Corpuscular Volume 86, Mean Corpuscular Hemoglobin 28.7, Mean Corpuscular Hemoglobin Concent 33.2, Red Cell Distribution Width 15.7H, Platelet Count 166, Mean Platelet Volume 5.9L, Neutrophils (%) (Auto) 51.9, Lymphocytes (%) (Auto) 33.0, Monocytes (%) (Auto) 12.4H, Eosinophils (%) (Auto) 2.0, Basophils (%) (Auto) 0.7, Sodium Level 138, Potassium Level 3.6, Chloride Level 103, Carbon Dioxide Level 29, Anion Gap 6, Blood Urea Nitrogen 17, Creatinine 1.3, Estimat Glomerular Filtration Rate 56.5, Glucose Level 154H, Calcium Level 8.5, Phosphorus Level 2.4L, Magnesium Level 1.7L, Total Bilirubin 0.4, Aspartate Amino Transf (AST/SGOT) 37, Alanine Aminotransferase (ALT/SGPT) 49, Alkaline Phosphatase 157H, C-Reactive Protein, Quantitative 5.2H, Pro-B- Type Natriuretic Peptide 7387H, Total Protein 5.7L, Albumin 2.1L, Globulin 3.6, Albumin/Globulin Ratio 0.6L Current Medications Medications (Trade) Dose Ordered Sig/Marquis Route PRN Reason Start Time Stop Time Status Last Admin Dose Admin Acetaminophen/ Butalbital/ Caffeine (Fioricet) 1 tab Q8H PRN ORAL For Headache 03/09/19 15:42 04/08/19 15:41 Albuterol/ Ipratropium (Albuterol/ Ipratropium) 3 ml Q6HRT HHN 03/09/19 07:00 03/13/19 19:14 03/11/19 07:03 Amlodipine Besylate (Norvasc) 10 mg DAILY NG 03/09/19 09:00 03/14/19 15:59 03/11/19 09:40 Artificial Tears (Lacri-Lube) 1 applic AC+HS BOTH EYES 03/09/19 11:30 03/20/19 06:29 03/11/19 06:08 Chlorhexidine Gluconate (Jessy-Hex 2%) 1 applic DAILY@1999 TOPIC 03/09/19 20:00 03/27/19 19:59 03/10/19 20:36 Clonidine HCl (Catapres tab) 0.2 mg EVERY 8 HOURS NG 03/09/19 14:00 03/19/19 13:59 03/11/19 06:08 Dextrose (Dextrose 50%) 25 ml Q30M PRN IV Hypoglycemia 03/09/19 07:15 03/31/19 07:14 Dextrose (Dextrose 50%) 50 ml Q30M PRN IV Hypoglycemia 03/09/19 07:15 03/31/19 07:14 Docusate Sodium (Colace) 100 mg TID GT 03/09/19 09:00 03/12/19 08:59 03/11/19 09:39 Fluconazole/ Sodium Chloride 100 ml @ 100 mls/hr Q24H IV 03/09/19 18:00 03/15/19 17:59 03/10/19 17:41 Heparin Sodium (Porcine) (Heparin 5000 units/ml) 5,000 units EVERY 12 HOURS SUBQ 03/09/19 09:00 04/05/19 20:59 03/11/19 09:45 Hydralazine HCl (Apresoline) 10 mg Q4H PRN IV bp over 165 syst 03/09/19 08:00 03/19/19 07:59 Hydralazine HCl (Apresoline) 50 mg Q8HR NG 03/09/19 14:00 03/21/19 21:59 03/11/19 06:08 Insulin Aspart (NovoLOG) EVERY 6 HOURS SUBQ 03/09/19 12:00 03/28/19 11:59 03/11/19 06:09 Insulin Detemir (Levemir) 10 units Q12HR SUBQ 03/09/19 09:00 04/01/19 20:59 03/11/19 09:44 Lorazepam (Ativan 2mg/ml 1ml) 2 mg Q2H PRN IV For Anxiety 03/09/19 07:45 03/13/19 19:44 03/10/19 14:40 Meropenem 1 gm/ Sodium Chloride 55 ml @ 110 mls/hr Q12HR IVPB 03/10/19 21:00 03/13/19 08:59 03/10/19 20:37 Metoclopramide HCl (Reglan) 5 mg Q8H IVP 03/09/19 09:00 03/28/19 08:59 03/11/19 10:05 Metolazone (Zaroxolyn) 10 mg DAILY NG 03/09/19 09:00 03/21/19 09:59 03/11/19 09:50 Midazolam HCl (Versed 2mg/2ml vial) 1 mg Q2H PRN IVP Agitation 03/09/19 08:00 03/15/19 07:59 Pantoprazole (Protonix) 40 mg DAILY IVP 03/09/19 09:00 03/24/19 20:59 03/11/19 10:05 Patient Own Medication (Patient's Own Med) 1 ea BID ORAL 03/09/19 09:00 04/08/19 08:59 03/11/19 09:41 Patient Own Medication (Patient's Own Med) 1 ea DAILY ORAL 03/09/19 09:00 04/08/19 08:59 03/11/19 09:41 Patient Own Medication (Patient's Own Med) 2 ea DAILY ORAL 03/09/19 09:00 04/08/19 08:59 03/11/19 09:41 Quetiapine Fumarate (SEROquel) 25 mg Q12HR ORAL 03/09/19 09:00 04/07/19 20:59 03/11/19 09:39 Sennosides (Senokot) 8.6 mg DAILY ORAL 03/09/19 09:00 03/15/19 11:59 03/11/19 09:58 Vancomycin HCl (Vanco rx to dose) 1 ea DAILY PRN MISC Per rx protocol 03/09/19 09:00 04/02/19 10:59 Vancomycin HCl 1.5 gm/Sodium Chloride 275 ml @ 137.5 mls/ hr Q24H IVPB 03/10/19 08:00 03/15/19 07:59 03/11/19 08:11 So Webb DO Mar 11, 2019 10:38
[2019-03-11] MEDS: Meropenem 1 GM in NS 55 ML IVPB SCH ×2 (10:48→20:26)
[2019-03-11 12:00] VITALS: BP 134/65
[2019-03-11] MEDS ORDERED: Potassium Phosphate 20 MM in NS 275 ML IV ONE (12:30)
[2019-03-11] MEDS: Bactrim-DS 1 tab ORAL SCH (12:35)
--- NOTE | 2019-03-11 13:00 | Cardiac Electrophysiology PN ---
Assessment/Plan Assessment/Plan 1. Non-ST elevation myocardial infarction with peak troponin of more than 10, down to 3.[address]-T wave abnormalities. Continue Lipitor, Imdur and metoprolol WIll consider Cardiac catheterization 2. Hypertension. Metoprolol 100 bid, Isordil 20 q6 , Norvasc 10 daily, hydralazine 50 q 8 hr and Clonidine 0.2 q 8hrs 3. Respiratory failure due to Multilobar Pneumonia. Extubated 02/19/19. Reintubated 02/20/19 S/P Tracheostomy 03/02/19. Off the vent now 4. Hyperlipidemia. On Lipitor. 5. Human immunodeficiency virus. On anti-retroviral therapy with undetectable viral load. 6. ARF Cr 3 Now Cr 1.3 7. Bleeding from ETT and NG tube. S/P PRBC. Off Aspirin and Lovenox No further bleeding 8. Dysphagia. S/P PEG 03/05/19 CANDELARIO RN Subjective Subjective In SDU off the vent on T piece via Tracheostomy. Alert in NAD. Sat in a chair for 2 hours Objective Last 24 Hour Vital Signs Date Time Temp Pulse Resp B/P (MAP) Pulse Ox O2 Delivery O2 Flow Rate FiO2 03/11/19 12:51 99 T-Piece 6.0 03/11/19 12:51 62 16 99 T-Piece 6.0 03/11/19 09:40 110 113/64 03/11/19 08:37 100 03/11/19 08:00 109 03/11/19 08:00 98.4 110 24 113/64 (80) 97 03/11/19 08:00 98.4 110 24 113/64 (80) 97 03/11/19 07:19 78 18 100 T-Piece 6.0 03/11/19 07:00 66 18 100 T-Piece 6.0 03/11/19 07:00 100 T-Piece 6.0 03/11/19 06:08 142/86 03/11/19 06:08 142/86 03/11/19 04:00 T-piece T-piece 03/11/19 04:00 98.4 90 23 142/86 (104) 97 03/11/19 04:00 90 03/11/19 00:44 86 20 99 T-Piece 6.0 03/11/19 00:34 84 20 99 T-Piece 6.0 28 03/11/19 00:33 99 T-Piece 6.0 28 03/11/19 00:00 98.5 83 23 125/65 (85) 97 03/11/19 00:00 T-piece T-piece 03/11/19 00:00 84 03/10/19 21:55 132/59 03/10/19 21:54 132/59 03/10/19 20:00 98.8 89 23 132/59 (83) 99 03/10/19 20:00 T-piece T-piece 03/10/19 20:00 90 03/10/19 19:22 89 20 99 T-Piece 6.0 28 03/10/19 19:13 99 T-Piece 6.0 28 03/10/19 19:12 88 20 99 T-Piece 6.0 28 03/10/19 16:00 98.2 81 26 143/74 (97) 99 03/10/19 16:00 T-piece T-piece 03/10/19 15:28 90 03/10/19 13:39 99 18 99 T-Piece 6.0 28 03/10/19 13:32 151/74 03/10/19 13:32 151/74 03/10/19 13:26 100 T-Piece 6.0 28 03/10/19 13:25 89 18 100 T-Piece 6.0 28 Intake and Output 03/10/19 03/11/19 19:00 07:00 Intake Total 1206.0 ml 708 ml Output Total 1550 ml 1300 ml Balance -344.0 ml -592 ml IV Total 430.0 ml 55 ml Tube Feeding 516 ml 473 ml Other 260 ml 180 ml Output Urine Total 1450 ml 1300 ml Stool Total 100 ml Laboratory Tests Test 03/11/19 04:30 White Blood Count 3.8 K/UL (4.8-10.8) L Red Blood Count 3.03 M/UL (4.70-6.10) L Hemoglobin 8.7 G/DL (14.2-18.0) L Hematocrit 26.1 % (42.0-52.0) L Mean Corpuscular Volume 86 FL (80-99) Mean Corpuscular Hemoglobin 28.7 PG (27.0-31.0) Mean Corpuscular Hemoglobin Concent 33.2 G/DL (32.0-36.0) Red Cell Distribution Width 15.7 % (11.6-14.8) H Platelet Count 166 K/UL (150-450) Mean Platelet Volume 5.9 FL (6.5-10.1) L Neutrophils (%) (Auto) 51.9 % (45.0-75.0) Lymphocytes (%) (Auto) 33.0 % (20.0-45.0) Monocytes (%) (Auto) 12.4 % (1.0-10.0) H Eosinophils (%) (Auto) 2.0 % (0.0-3.0) Basophils (%) (Auto) 0.7 % (0.0-2.0) Sodium Level 138 MMOL/L (136-145) Potassium Level 3.6 MMOL/L (3.5-5.1) Chloride Level 103 MMOL/L (98-107) Carbon Dioxide Level 29 MMOL/L (21-32) Anion Gap 6 mmol/L (5-15) Blood Urea Nitrogen 17 mg/dL (7-18) Creatinine 1.3 MG/DL (0.55-1.30) Estimat Glomerular Filtration Rate 56.5 mL/min (>60) Glucose Level 154 MG/DL (74-106) H Calcium Level 8.5 MG/DL (8.5-10.1) Phosphorus Level 2.4 MG/DL (2.5-4.9) L Magnesium Level 1.7 MG/DL (1.8-2.4) L Total Bilirubin 0.4 MG/DL (0.2-1.0) Aspartate Amino Transf (AST/SGOT) 37 U/L (15-37) Alanine Aminotransferase (ALT/SGPT) 49 U/L (12-78) Alkaline Phosphatase 157 U/L (46-116) H C-Reactive Protein, Quantitative 5.2 mg/dL (0.00-0.90) H Pro-B-Type Natriuretic Peptide 7387 pg/mL (0-125) H Total Protein 5.7 G/DL (6.4-8.2) L Albumin 2.1 G/DL (3.4-5.0) L Globulin 3.6 g/dL Albumin/Globulin Ratio 0.6 (1.0-2.7) L Objective HEAD AND NECK: No JVD. S/P tracheostomy LUNGS: Coarse rhonchi. CARDIOVASCULAR: Regular S1 and S2 with no gallop or murmur. ABDOMEN: Soft.PEG in place EXTREMITIES: 1 plus pitting edema. Murray Francois MD Mar 11, 2019 12:59
--- NOTE | 2019-03-11 13:55 | Hematology/Onc Progress Note ---
Assessment/Plan Assessment/Plan ASSESSMENT AND RECS: # Pancytopenia with all three cell lines have, decreasing counts could also be due to underlying hiv meds, sepsis as well as HIV --> Anemia workup has been reviewed. Ferritin 182 --> Hep panel negative and HIV confirmed positive --> No evidence of hemolysis is noted, peripheral smear has been reviewed. --> Hgb goal >7. Transfuse prn. --> Epogen or iron at this time is not particularly indicated --> Medications have been reviewed --> Stool OB negative --> Blood tx: 1 unit on 02/10/19, --> off ASA, off heparin, off lovenox --> Hgb trend: 7.6-->8.2-->9.4-->8.4-->8.2 -->8.9-->10.3->7.9-->8.1->7.8-->8.7-- >8.4-->8.1-->7.9-->8.2-->7.6-->8.3-->8.8-->8.7 --> WBC trend: 5-->4-->3.2-->3.1-->3.4-->2.8-->4.3-->3.8 --> Plt trend: 153-->257-->224-->205-->253-->310-->201->177-->115-->104-->100--> 106-->96k-->93k-->104-->151-->166 --> Transfuse if Plt < 20k and fever, or if Plt < 10k without fever --> WILLIAM screen negative # Multilobar pneumonia in patient with HIV. Recs per ID. --> Broad sp abx started. Continue on abx as per id --> Droplet precaution # Hypoxemic respiratory failure. s/p trach --> Due to pneumonia, on abx --> pulm recs reviewed --> SBT as per pulm # Chest pain. Cardiology is following, appreciate recs --> EKG with bifascicular block RBB and LAFB, no ST changes --> Trend troponin x3 --> NGT prn # HIV. --> Continue HARRT --> VL is undetectable per patient report. # HTN --> Resume home medication # DVT and GI ppx The time the note is entered does not reflect the time the patient was examined. I greatly appreciate the consultation. Subjective Hematologic/Lymphatic: Reports: anemia Allergies: Coded Allergies: No Known Allergies (Unverified , 02/05/13) Subjective Subjective 02/11: Hgb yesterday was 7.6, s/p 1 unit prbc. Current hgb at 8.2. Pt attempted to pull out tubes per nursing team, soft restraints applied. 02/13: Pt in ICU and intubated. Pt currently sedated. Current hgb 9.4. 02/14: Pt remains in icu, sedated. Hgb stable. 02/15: Remains in icu, lethargic. No acute events. Hgb stable. 02/16: Remains in icu. CXR today shows worsening CHF/pulmonary edema. Pt wake and sedation decrease for weaning. 02/18: Remains in icu. Pt on vent. CXR today shows pulmonary edema, persistent small left pleural effusion. 02/19: Remains in the icu, now extubated, seen by pulm, labs reviewed 02/20: Remains in ICU, Pt intubated, CXR today shows Congestive heart failure with interval worsening 02/21: reintubated, tolerating vent well, seen by pulm/cc 02/23: pt remains on fently gtt, prn ativan, currently intubated on vent, no further bleeding, d/w RN> 02/24:failed weaning, fentanyl drip decreased. 02/25:pt seen in am,sedated. 02/27: remains intubated, may need trach, no bleeding today 02/28: tolerated cpap, now back on vent, no bleeding off asa/lovenox 03/01: fentanyl gtt is now off, remains in icu, dw rn 03/02: to get trach today, at approx 12, no events, labs somewhat lower 03/03: still confused on exam, d/w rn, no events, on fentanyl gtt 03/05: to get peg tomorrow, no f/c 03/06: received peg yesterday, tolerating tfs well, no f/c, labs reviewed 03/07: remains in icu, trach collar, dw pulm, no f/c 03/08: seen by neuro, no bleeding, no f/c, seen by pulm/cc, neuro 03/09: transferred to [facility], on t-piece, on abx, labs reviewed. 03/10: resting in bed, no acute events, labs reviewed 03/11: awake and alert, not getting out of bed, no reports of bleeding, in SDU off the vent on T piece via trach, sat in a chair for 2 hours Objective Objective Current Medications Medications (Trade) Dose Ordered Sig/Marquis Route PRN Reason Start Time Stop Time Status Last Admin Dose Admin Acetaminophen/ Butalbital/ Caffeine (Fioricet) 1 tab Q8H PRN ORAL For Headache 03/09/19 15:42 04/08/19 15:41 Albuterol/ Ipratropium (Albuterol/ Ipratropium) 3 ml Q6HRT HHN 03/09/19 07:00 03/13/19 19:14 03/11/19 12:51 Amlodipine Besylate (Norvasc) 10 mg DAILY NG 03/09/19 09:00 03/14/19 15:59 03/11/19 09:40 Artificial Tears (Lacri-Lube) 1 applic AC+HS BOTH EYES 03/09/19 11:30 03/20/19 06:29 03/11/19 12:35 Chlorhexidine Gluconate (Jessy-Hex 2%) 1 applic DAILY@2000 TOPIC 03/09/19 20:00 03/27/19 19:59 03/10/19 20:36 Clonidine HCl (Catapres tab) 0.2 mg EVERY 8 HOURS NG 03/09/19 14:00 03/19/19 13:59 03/11/19 06:08 Dextrose (Dextrose 50%) 25 ml Q30M PRN IV Hypoglycemia 03/09/19 07:15 03/31/19 07:14 Dextrose (Dextrose 50%) 50 ml Q30M PRN IV Hypoglycemia 03/09/19 07:15 03/31/19 07:14 Docusate Sodium (Colace) 100 mg TID GT 03/09/19 09:00 03/12/19 08:59 03/11/19 12:35 Fluconazole/ Sodium Chloride 100 ml @ 100 mls/hr Q24H IV 03/09/19 18:00 03/15/19 17:59 03/10/19 17:41 Heparin Sodium (Porcine) (Heparin 5000 units/ml) 5,000 units EVERY 12 HOURS SUBQ 03/09/19 09:00 04/05/19 20:59 03/11/19 09:45 Hydralazine HCl (Apresoline) 10 mg Q4H PRN IV bp over 165 syst 03/09/19 08:00 03/19/19 07:59 Hydralazine HCl (Apresoline) 50 mg Q8HR NG 03/09/19 14:00 03/21/19 21:59 03/11/19 06:08 Insulin Aspart (NovoLOG) EVERY 6 HOURS SUBQ 03/09/19 12:00 03/28/19 11:59 03/11/19 12:01 Insulin Detemir (Levemir) 10 units Q12HR SUBQ 03/09/19 09:00 04/01/19 20:59 03/11/19 09:44 Lorazepam (Ativan 2mg/ml 1ml) 2 mg Q2H PRN IV For Anxiety 03/09/19 07:45 03/13/19 19:44 03/10/19 14:40 Magnesium Sulfate 100 ml @ 100 mls/hr Q1H IVPB 03/11/19 12:00 03/11/19 13:59 03/11/19 12:35 Meropenem 1 gm/ Sodium Chloride 55 ml @ 110 mls/hr Q12HR IVPB 03/10/19 21:00 03/13/19 08:59 03/11/19 10:48 Metoclopramide HCl (Reglan) 5 mg Q8H IVP 03/09/19 09:00 03/28/19 08:59 03/11/19 10:05 Metolazone (Zaroxolyn) 10 mg DAILY NG 03/09/19 09:00 03/21/19 09:59 03/11/19 09:50 Midazolam HCl (Versed 2mg/2ml vial) 1 mg Q2H PRN IVP Agitation 03/09/19 08:00 03/15/19 07:59 Pantoprazole (Protonix) 40 mg DAILY IVP 03/09/19 09:00 03/24/19 20:59 03/11/19 10:05 Patient Own Medication (Patient's Own Med) 1 ea BID ORAL 03/09/19 09:00 04/08/19 08:59 03/11/19 09:41 Patient Own Medication (Patient's Own Med) 1 ea DAILY ORAL 03/09/19 09:00 04/08/19 08:59 03/11/19 09:41 Patient Own Medication (Patient's Own Med) 2 ea DAILY ORAL 03/09/19 09:00 04/08/19 08:59 03/11/19 09:41 Potassium Phosphate 20 mm/ Sodium Chloride 281.6667 ml @ 46.944 m... ONCE ONCE IV 03/11/19 12:30 03/11/19 18:29 03/11/19 13:01 Quetiapine Fumarate (SEROquel) 25 mg Q12HR ORAL 03/09/19 09:00 04/07/19 20:59 03/11/19 09:39 Sennosides (Senokot) 8.6 mg DAILY ORAL 03/09/19 09:00 03/15/19 11:59 03/11/19 09:58 Trimethoprim/ Sulfamethoxazole (Bactrim-DS) 1 tab DAILY ORAL 03/11/19 12:00 03/18/19 11:59 03/11/19 12:35 Vancomycin HCl (Vanco rx to dose) 1 ea DAILY PRN MISC Per rx protocol 03/09/19 09:00 04/02/19 10:59 Vancomycin HCl 1.5 gm/Sodium Chloride 275 ml @ 137.5 mls/ hr Q24H IVPB 03/10/19 08:00 03/15/19 07:59 03/11/19 08:11 Last 24 Hour Vital Signs Date Time Temp Pulse Resp B/P (MAP) Pulse Ox O2 Delivery O2 Flow Rate FiO2 03/11/19 13:12 74 18 100 T-Piece 6.0 03/11/19 12:51 99 T-Piece 6.0 03/11/19 12:51 62 16 99 T-Piece 6.0 03/11/19 09:40 110 113/64 03/11/19 08:37 100 03/11/19 08:00 109 03/11/19 08:00 98.4 110 24 113/64 (80) 97 03/11/19 08:00 98.4 110 24 113/64 (80) 97 03/11/19 07:19 78 18 100 T-Piece 6.0 03/11/19 07:00 66 18 100 T-Piece 6.0 03/11/19 07:00 100 T-Piece 6.0 03/11/19 06:08 142/86 03/11/19 06:08 142/86 03/11/19 04:00 T-piece T-piece 03/11/19 04:00 98.4 90 23 142/86 (104) 97 03/11/19 04:00 90 03/11/19 00:44 86 20 99 T-Piece 6.0 03/11/19 00:34 84 20 99 T-Piece 6.0 03/11/19 00:33 99 T-Piece 6.0 03/11/19 00:00 98.5 83 23 125/65 (85) 97 03/11/19 00:00 T-piece T-piece 03/11/19 00:00 84 03/10/19 21:55 132/59 03/10/19 21:54 132/59 03/10/19 20:00 98.8 89 23 132/59 (83) 99 03/10/19 20:00 T-piece T-piece 03/10/19 20:00 90 03/10/19 19:22 89 20 99 T-Piece 6.0 03/10/19 19:13 99 T-Piece 6.0 03/10/19 19:12 88 20 99 T-Piece 6.0 03/10/19 16:00 98.2 81 26 143/74 (97) 99 03/10/19 16:00 T-piece T-piece 03/10/19 15:28 90 03/10/19 13:39 99 18 99 T-Piece 6.0 03/10/19 13:32 151/74 03/10/19 13:32 151/74 03/10/19 13:26 100 T-Piece 6.0 03/10/19 13:25 89 18 100 T-Piece 6.0 03/10/19 12:00 T-piece T-piece 03/10/19 12:00 98.4 89 20 151/74 (99) 98 03/10/19 11:38 86 03/10/19 10:23 94 134/69 03/10/19 09:25 100 03/10/19 08:00 T-piece T-piece 03/10/19 08:00 98.1 94 19 134/69 (90) 100 03/10/19 07:58 92 03/10/19 07:44 93 18 100 T-Piece 6.0 03/10/19 07:29 100 T-Piece 6.0 03/10/19 07:27 91 20 100 T-Piece 6.0 03/10/19 05:34 134/71 03/10/19 05:33 134/71 03/10/19 04:00 91 03/10/19 04:00 T-piece T-piece 03/10/19 04:00 99.2 82 24 134/71 (92) 99 03/10/19 01:05 92 18 100 T-Piece 6.0 03/10/19 01:05 100 T-Piece 6.0 03/10/19 00:52 93 22 100 T-Piece 8.0 28 03/10/19 00:00 T-piece T-piece 03/10/19 00:00 99.6 93 24 124/64 (84) 99 03/10/19 00:00 91 03/09/19 21:07 115/60 03/09/19 21:07 115/60 03/09/19 20:06 88 18 100 T-Piece 8.0 30 03/09/19 20:00 95 03/09/19 20:00 88 18 100 T-Piece 8.0 30 03/09/19 20:00 T-piece T-piece 03/09/19 20:00 99.2 94 24 115/60 (78) 99 03/09/19 19:59 100 T-Piece 8.0 30 03/09/19 19:50 90 18 99 T-Piece 6.0 28 03/09/19 16:00 85 03/09/19 16:00 T-piece T-piece 03/09/19 16:00 98.7 92 20 144/76 (98) 98 03/09/19 14:00 136/79 Intake and Output 03/10/19 03/11/19 19:00 07:00 Intake Total 1206.0 ml 708 ml Output Total 1550 ml 1300 ml Balance -344.0 ml -592 ml IV Total 430.0 ml 55 ml Tube Feeding 516 ml 473 ml Other 260 ml 180 ml Output Urine Total 1450 ml 1300 ml Stool Total 100 ml Labs Test 03/09/19 04:00 03/09/19 08:00 03/10/19 05:20 03/11/19 04:30 White Blood Count 2.8 K/UL (4.8-10.8) 4.3 K/UL (4.8-10.8) 3.8 K/UL (4.8-10.8) Red Blood Count 2.90 M/UL (4.70-6.10) 3.05 M/UL (4.70-6.10) 3.03 M/UL (4.70-6.10) Hemoglobin 8.3 G/DL (14.2-18.0) 8.8 G/DL (14.2-18.0) 8.7 G/DL (14.2-18.0) Hematocrit 25.1 % (42.0-52.0) 26.4 % (42.0-52.0) 26.1 % (42.0-52.0) Mean Corpuscular Volume 87 FL (80-99) 86 FL (80-99) 86 FL (80-99) Mean Corpuscular Hemoglobin 28.5 PG (27.0-31.0) 28.8 PG (27.0-31.0) 28.7 PG (27.0-31.0) Mean Corpuscular Hemoglobin Concent 32.9 G/DL (32.0-36.0) 33.3 G/DL (32.0-36.0) 33.2 G/DL (32.0-36.0) Red Cell Distribution Width 15.7 % (11.6-14.8) 15.3 % (11.6-14.8) 15.7 % (11.6-14.8) Platelet Count 104 K/UL (150-450) 151 K/UL (150-450) 166 K/UL (150-450) Mean Platelet Volume 6.0 FL (6.5-10.1) 6.0 FL (6.5-10.1) 5.9 FL (6.5-10.1) Neutrophils (%) (Auto) % (45.0-75.0) 61.7 % (45.0-75.0) 51.9 % (45.0-75.0) Lymphocytes (%) (Auto) % (20.0-45.0) 23.0 % (20.0-45.0) 33.0 % (20.0-45.0) Monocytes (%) (Auto) % (1.0-10.0) 13.5 % (1.0-10.0) 12.4 % (1.0-10.0) Eosinophils (%) (Auto) % (0.0-3.0) 1.0 % (0.0-3.0) 2.0 % (0.0-3.0) Basophils (%) (Auto) % (0.0-2.0) 0.8 % (0.0-2.0) 0.7 % (0.0-2.0) Differential Total Cells Counted 100 Neutrophils % (Manual) 53 % (45-75) Lymphocytes % (Manual) 32 % (20-45) Monocytes % (Manual) 12 % (1-10) Eosinophils % (Manual) 3 % (0-3) Basophils % (Manual) 0 % (0-2) Band Neutrophils 0 % (0-8) Platelet Estimate Decreased Platelet Morphology Normal Anisocytosis 1+ Sodium Level 138 MMOL/L (136-145) 138 MMOL/L (136-145) 138 MMOL/L (136-145) Potassium Level 3.7 MMOL/L (3.5-5.1) 3.9 MMOL/L (3.5-5.1) 3.6 MMOL/L (3.5-5.1) Chloride Level 100 MMOL/L (98-107) 101 MMOL/L (98-107) 103 MMOL/L (98-107) Carbon Dioxide Level 32 MMOL/L (21-32) 31 MMOL/L (21-32) 29 MMOL/L (21-32) Anion Gap 6 mmol/L (5-15) 6 mmol/L (5-15) 6 mmol/L (5-15) Blood Urea Nitrogen 21 mg/dL (7-18) 19 mg/dL (7-18) 17 mg/dL (7-18) Creatinine 1.6 MG/DL (0.55-1.30) 1.4 MG/DL (0.55-1.30) 1.3 MG/DL (0.55-1.30) Estimat Glomerular Filtration Rate 44.5 mL/min (>60) 51.9 mL/min (>60) 56.5 mL/min (>60) Glucose Level 195 MG/DL (74-106) 190 MG/DL (74-106) 154 MG/DL (74-106) Calcium Level 8.5 MG/DL (8.5-10.1) 8.4 MG/DL (8.5-10.1) 8.5 MG/DL (8.5-10.1) Total Bilirubin 0.4 MG/DL (0.2-1.0) 0.4 MG/DL (0.2-1.0) 0.4 MG/DL (0.2-1.0) Aspartate Amino Transf (AST/SGOT) 37 U/L (15-37) 42 U/L (15-37) 37 U/L (15-37) Alanine Aminotransferase (ALT/SGPT) 45 U/L (12-78) 52 U/L (12-78) 49 U/L (12-78) Alkaline Phosphatase 164 U/L (46-116) 175 U/L (46-116) 157 U/L (46-116) Total Protein 5.4 G/DL (6.4-8.2) 5.5 G/DL (6.4-8.2) 5.7 G/DL (6.4-8.2) Albumin 2.1 G/DL (3.4-5.0) 2.4 G/DL (3.4-5.0) 2.1 G/DL (3.4-5.0) Globulin 3.3 g/dL 3.1 g/dL 3.6 g/dL Albumin/Globulin Ratio 0.6 (1.0-2.7) 0.8 (1.0-2.7) 0.6 (1.0-2.7) Vancomycin Level Trough 12.8 ug/mL (5.0-12.0) Phosphorus Level 2.4 MG/DL (2.5-4.9) Magnesium Level 1.7 MG/DL (1.8-2.4) C-Reactive Protein, Quantitative 5.2 mg/dL (0.00-0.90) Pro-B-Type Natriuretic Peptide 7387 pg/mL (0-125) Height (Feet): 6 Height (Inches): 0.00 Weight (Pounds): 252 Objective PHYSICAL EXAMINATION: GENERAL: NAD VITAL SIGNS: Have been reviewed. HEAD AND NECK: Shows no JVD. NG+, trach ++++ vent+ LUNGS: Coarse rhonchi. CARDIOVASCULAR: Shows regular S1 and S2 with no gallop or murmur. ABDOMEN: Soft. ++ peg EXTREMITIES: No pitting edema. Chan Hernandez MD Mar 11, 2019 13:55
--- NOTE | 2019-03-11 14:15 | Geriatric Medicine Prog Note ---
DATE: 03/10/2019 NOTE: POOR AUDIO SUBJECTIVE: The patient is comfortable continues per G-tube . PHYSICAL EXAMINATION: VITAL SIGNS: Blood pressure 125/65, pulse 82, respiratory rate 23, and temperature . LABORATORY DATA: glucose control . Reg Singh M.D. DR: LEWIS JOB#: [id number] CC:
--- NOTE | 2019-03-11 15:12 | NUR ---
P.T NOTE: P.T EVALUATION COMPLETED AND TREATMENT INITIATED. PLEASE REFER TO P.T EVALUATION FOR CURRENT FUNCTIONAL STATUS. PATIENT IS ALERT, ORIENT TO SELF AND PLACE BUT NOT TIME, PERIODICALLY CONFUSED HOWEVER FOLLOWS COMMAND APPROPRIATELY. PATIENT CURRENTLY ON WRIST RESTRAINT. PATIENT IS LIMITED BY GENERALIZED WEAKNESS AND DECONDITIONED STATE. MOBILITY IS ALSO RESTRICTED BY MULTIPLE ESSENTIAL LINES/TUBINGS I.E TRACH. TUBE, RECTAL TUBE, GARVIN CATH , I.V LINES AND TUBE FEEDING THEREFORE NEEDED 2PA FOR MOBILITY. PATIENT WAS ABLE TO PERFORM BED MOBILITY WITH MOD A X 1, SIT TO/FROM STAND, BED TO/FROM CHAIR TRANSFER WITH MAX A X 2P. PATIENT WAS ONLY ABLE TO PARTIALLY STAND WITH MAX SUPPORT X 2 X 10 SECS HOWEVER TOO WEAK AND FATIGUED TO TAKE STEPS. OVERALL POOR ENDURANCE/TOLERANCE TO ACTIVITIES. SKILLED P.T SERVICE IS WARRANTED TO IMPROVE STRENGTH, BALANCE AND ENDURANCE TO INCREASE FUNCTIONAL MOBILITY INDEPENDENCE AND SAFETY AND TO PREPARE PATIENT TO THE NEXT LEVEL OF CARE. RECOMMEND SNF FOR SHORT FURTHER REHAB VS HOME P.T. AT [place].
--- NOTE | 2019-03-11 15:58 | General Progress Note ---
Assessment/Plan Status: stable, progressing Assessment/Plan: 58 y Male admitted to the hospital due to fever, shortness of breath and chest pain. # Multilobar pneumonia in patient with HIV - Broad sp atbx started. Continue Zosyn, Vancomycin, Azithromycin, TM-SMX ( now prophylactic and completed course for PCP/PJ pnuemonia ) - Fluconazole per ID - Droplet precaution removed. - Flu swab negative - Oxygen support, ventilatory support as not able to wean off ventilator due to agitation. - ID consult appreciated. - T piece being tolerated and transferred to [facility] 03/09 # Hypoxemic respiratory failure - Critical care follow up. Unable to wean off the ventilator. Tracheostomy completed. - Due to pneumonia - Tolerating CPAP 03/06 - T piece now # Chest pain - EKG with bifascicular block RBB and LAFB, no ST changes. - Trend troponin x3 completed - ECHO completed with no WMA and preserved EF. Dr. Francois consulted. Consideration for outpatient cath vs possibly myocarditis due to underlying viral infection. No evidence of Takotsubo per TTE. NOT a candidate for angiogram at this time. - NGT prn - Pain control with morphine # HIV - Continue HARRT - VL is undetectable per patient report. T cell count > 400 - CD 4 count 191 # HTN - Resume home medication - Clonidine, Isordil. # [place] hyponatremia - Monitor - good response to NS # CKD 2-3 - Trend renal function - Dr. Gasca for [facility] if needed again in the future. Currently renal function stable and L femoral dialysis access removed 2 weeks ago. - R PICC done 2 weeks ago # Failure to thrive and moderate protein caloric malnutrition - PEG 03/05 - Tube feeds started and tolerating. Need to follow up with ST for safety - Dr. Ricketts following up. # Hypokalemia - Replete as needed # Hypophosphatemia - Replete as needed # Diabetes Mellitus - Lantus 10 BID - Endocrinology following up appreciated. - Resolved hypoglycemia 03/06 # Loose stool - C diff negative 03/07 # PT mobility requested and NEEDS INTENSIVE PT/OT due to prolongued ( > 30 day hospitalization) # ST evaluation for PM Valve trial and swallowing safety as NEW difficulty swallowing noted today. # Disposition CM and SW follow up for LTAC vs SNF DVT and GI ppx Full code Subjective Allergies: Coded Allergies: No Known Allergies (Unverified , 02/05/13) All Systems: reviewed and negative except above Subjective Able to mouth words and reports not being able to swallow well today. Was out of bed on the chair for > 2 hours. Restraint removed. Objective Last 24 Hour Vital Signs Date Time Temp Pulse Resp B/P (MAP) Pulse Ox O2 Delivery O2 Flow Rate FiO2 03/11/19 14:02 134/65 03/11/19 14:01 134/65 03/11/19 13:12 74 18 100 T-Piece 6.0 03/11/19 12:51 99 T-Piece 6.0 03/11/19 12:51 62 16 99 T-Piece 6.0 03/11/19 12:00 94 03/11/19 12:00 99.6 97 22 134/65 (88) 97 03/11/19 12:00 T-piece T-piece 03/11/19 09:40 110 113/64 03/11/19 08:37 100 03/11/19 08:00 109 03/11/19 08:00 98.4 110 24 113/64 (80) 97 03/11/19 08:00 98.4 110 24 113/64 (80) 97 03/11/19 08:00 T-piece T-piece 03/11/19 07:19 78 18 100 T-Piece 6.0 03/11/19 07:00 66 18 100 T-Piece 6.0 03/11/19 07:00 100 T-Piece 6.0 03/11/19 06:08 142/86 03/11/19 06:08 142/86 03/11/19 04:00 T-piece T-piece 03/11/19 04:00 98.4 90 23 142/86 (104) 97 03/11/19 04:00 90 03/11/19 00:44 86 20 99 T-Piece 6.0 03/11/19 00:34 84 20 99 T-Piece 6.0 03/11/19 00:33 99 T-Piece 6.0 03/11/19 00:00 98.5 83 23 125/65 (85) 97 03/11/19 00:00 T-piece T-piece 03/11/19 00:00 84 03/10/19 21:55 132/59 03/10/19 21:54 132/59 03/10/19 20:00 98.8 89 23 132/59 (83) 99 03/10/19 20:00 T-piece T-piece 03/10/19 20:00 90 03/10/19 19:22 89 20 99 T-Piece 6.0 28 03/10/19 19:13 99 T-Piece 6.0 28 03/10/19 19:12 88 20 99 T-Piece 6.0 28 03/10/19 16:00 98.2 81 26 143/74 (97) 99 03/10/19 16:00 T-piece T-piece Intake and Output 03/10/19 03/11/19 19:00 07:00 Intake Total 1206.0 ml 751 ml Output Total 1550 ml 1300 ml Balance -344.0 ml -549 ml IV Total 430.0 ml 55 ml Tube Feeding 516 ml 516 ml Other 260 ml 180 ml Output Urine Total 1450 ml 1300 ml Stool Total 100 ml Laboratory Tests 03/11/19 04:30: White Blood Count 3.8L, Red Blood Count 3.03L, Hemoglobin 8.7L, Hematocrit 26.1L , Mean Corpuscular Volume 86, Mean Corpuscular Hemoglobin 28.7, Mean Corpuscular Hemoglobin Concent 33.2, Red Cell Distribution Width 15.7H, Platelet Count 166, Mean Platelet Volume 5.9L, Neutrophils (%) (Auto) 51.9, Lymphocytes (%) (Auto) 33.0, Monocytes (%) (Auto) 12.4H, Eosinophils (%) (Auto) 2.0, Basophils (%) (Auto) 0.7, Sodium Level 138, Potassium Level 3.6, Chloride Level 103, Carbon Dioxide Level 29, Anion Gap 6, Blood Urea Nitrogen 17, Creatinine 1.3, Estimat Glomerular Filtration Rate 56.5, Glucose Level 154H, Calcium Level 8.5, Phosphorus Level 2.4L, Magnesium Level 1.7L, Total Bilirubin 0.4, Aspartate Amino Transf (AST/SGOT) 37, Alanine Aminotransferase (ALT/SGPT) 49, Alkaline Phosphatase 157H, C-Reactive Protein, Quantitative 5.2H, Pro-B- Type Natriuretic Peptide 7387H, Total Protein 5.7L, Albumin 2.1L, Globulin 3.6, Albumin/Globulin Ratio 0.6L Height (Feet): 6 Height (Inches): 0.00 Weight (Pounds): 252 Geovani Hawley MD Mar 11, 2019 15:58
[2019-03-11 16:00] VITALS: BP 121/62
--- NOTE | 2019-03-11 17:24 | Nephrology Progress Note ---
Assessment/Plan Problem List: (1) ISH (acute kidney injury) Assessment: Cr lowering (2) HIV (human immunodeficiency virus infection) (3) NSTEMI (non-ST elevated myocardial infarction) Assessment: troponin decreasing (4) Hypoxia (5) Anemia (6) Diabetes Assessment Acute Renal failure- Cr leveling- Urine out put is good Acidosis improved Acute respiratory failure- Require intubation and Mechanical Ventilation- Anemia- Elevated troponin / OH HTN DM HIV Antibody + Plan Trach 03/02 mag and K and Phos supplement as needed adjust BP meds on feeding IV protonix transfusiosn as needed BP med adjustment UA and urine studies Avoid Nephrotoxics as possible Monitor renal parameters keep BP and BS in check Per orders No HD at this time Kidney RADHA noted adjust BP meds add Isordil Subjective ROS Limited/Unobtainable: Yes Objective Objective Last 24 Hour Vital Signs Date Time Temp Pulse Resp B/P (MAP) Pulse Ox O2 Delivery O2 Flow Rate FiO2 03/11/19 14:02 134/65 03/11/19 14:01 134/65 03/11/19 13:12 74 18 100 T-Piece 6.0 03/11/19 12:51 99 T-Piece 6.0 03/11/19 12:51 62 16 99 T-Piece 6.0 03/11/19 12:00 94 03/11/19 12:00 99.6 97 22 134/65 (88) 97 03/11/19 12:00 T-piece T-piece 03/11/19 09:40 110 113/64 03/11/19 08:37 100 03/11/19 08:00 109 03/11/19 08:00 98.4 110 24 113/64 (80) 97 03/11/19 08:00 98.4 110 24 113/64 (80) 97 03/11/19 08:00 T-piece T-piece 03/11/19 07:19 78 18 100 T-Piece 6.0 03/11/19 07:00 66 18 100 T-Piece 6.0 03/11/19 07:00 100 T-Piece 6.0 03/11/19 06:08 142/86 03/11/19 06:08 142/86 03/11/19 04:00 T-piece T-piece 03/11/19 04:00 98.4 90 23 142/86 (104) 97 03/11/19 04:00 90 03/11/19 00:44 86 20 99 T-Piece 6.0 28 03/11/19 00:34 84 20 99 T-Piece 6.0 28 03/11/19 00:33 99 T-Piece 6.0 28 03/11/19 00:00 98.5 83 23 125/65 (85) 97 03/11/19 00:00 T-piece T-piece 03/11/19 00:00 84 03/10/19 21:55 132/59 03/10/19 21:54 132/59 03/10/19 20:00 98.8 89 23 132/59 (83) 99 03/10/19 20:00 T-piece T-piece 03/10/19 20:00 90 03/10/19 19:22 89 20 99 T-Piece 6.0 28 03/10/19 19:13 99 T-Piece 6.0 28 03/10/19 19:12 88 20 99 T-Piece 6.0 28 Intake and Output 03/10/19 03/11/19 19:00 07:00 Intake Total 1206.0 ml 751 ml Output Total 1550 ml 1300 ml Balance -344.0 ml -549 ml IV Total 430.0 ml 55 ml Tube Feeding 516 ml 516 ml Other 260 ml 180 ml Output Urine Total 1450 ml 1300 ml Stool Total 100 ml Laboratory Tests 03/11/19 04:30: White Blood Count 3.8L, Red Blood Count 3.03L, Hemoglobin 8.7L, Hematocrit 26.1L , Mean Corpuscular Volume 86, Mean Corpuscular Hemoglobin 28.7, Mean Corpuscular Hemoglobin Concent 33.2, Red Cell Distribution Width 15.7H, Platelet Count 166, Mean Platelet Volume 5.9L, Neutrophils (%) (Auto) 51.9, Lymphocytes (%) (Auto) 33.0, Monocytes (%) (Auto) 12.4H, Eosinophils (%) (Auto) 2.0, Basophils (%) (Auto) 0.7, Sodium Level 138, Potassium Level 3.6, Chloride Level 103, Carbon Dioxide Level 29, Anion Gap 6, Blood Urea Nitrogen 17, Creatinine 1.3, Estimat Glomerular Filtration Rate 56.5, Glucose Level 154H, Calcium Level 8.5, Phosphorus Level 2.4L, Magnesium Level 1.7L, Total Bilirubin 0.4, Aspartate Amino Transf (AST/SGOT) 37, Alanine Aminotransferase (ALT/SGPT) 49, Alkaline Phosphatase 157H, C-Reactive Protein, Quantitative 5.2H, Pro-B- Type Natriuretic Peptide 7387H, Total Protein 5.7L, Albumin 2.1L, Globulin 3.6, Albumin/Globulin Ratio 0.6L Height (Feet): 6 Height (Inches): 0.00 Weight (Pounds): 252 General Appearance: no apparent distress EENT: other - vented Cardiovascular: normal rate Respiratory/Chest: decreased breath sounds Abdomen: distended Objective no change Mike Mcdonald MD Mar 11, 2019 17:24
--- NOTE | 2019-03-11 19:15 | NUR ---
NURSE NOTES:HAND-OFF: Report given to .RICARDO ZARATE.
--- NOTE | 2019-03-11 19:16 | NUR ---
NURSE NOTES: Patient received from Itz ZARATE. Patient is in bed with no signs of acute distress on vent. Patient is oriented X3, tries patiently to talk and is cooperative. Patient is running Glucerna 1.5 at 43cc/hr. Patient had a right upper arm PICC double lumen; red port has resistance when flushing. Extremities are cool to touch and capillary refill is <3 seconds. Bed is at its lowest position, call light in reach and X3 bed rails are up.
[2019-03-11 20:00] VITALS: BP 137/64
[2019-03-11] MEDS: Dyna-Hex 2% Top Sol 2oz TOPIC SCH (20:26)
[2019-03-12] VITALS: BP 145/64
[2019-03-12] MEDS: Metoclopramide 10mg/2ml Inj IVP SCH ×3 (00:08→18:02)
[2019-03-12] MEDS: Albuterol/Ipratropium 3ml neb HHN SCH ×4 (00:36→19:40)
[2019-03-12 04:00] VITALS: BP 117/59
[2019-03-12] MEDS: HydrALAZINE 50mg tab NG SCH ×3 (06:23→21:19)
[2019-03-12] MEDS: cloNIDine 0.2mg Tab NG SCH ×3 (06:23→21:19)
[2019-03-12] MEDS: NovoLOG Insulin Flexpen SUBQ SCH ×4 (06:24→23:49)
[2019-03-12] MEDS: Lacri-Lube Opth Oint 3.5gm BOTH EYES SCH ×4 (06:26→21:19)
--- NOTE | 2019-03-12 06:58 | NUR ---
HAND-OFF: Report given to Sadie ZARATE.
--- NOTE | 2019-03-12 06:59 | NUR ---
NURSE NOTES: Received patient in bed. In no apparent distress. On T-piece, denies SOB. Patient is awake, alert, with forgetfulness. Call light within reach. Simon cath and rectal tube noted. Will continue plan of care.
[2019-03-12 07:18] LABS: BASOPHILS % (AUTO) 0.7 % (0.0-2.0); HEMATOCRIT 26.8 % (42.0-52.0); HEMOGLOBIN 8.9 G/DL (14.2-18.0); LYMPHOCYTES % (AUTO) 34.5 % (20.0-45.0); MEAN CORPUSCULAR VOLUME 86 FL (80-99); MONOCYTES % (AUTO) 14.1 % (1.0-10.0); NEUTROPHILS % (AUTO) 48.8 % (45.0-75.0); PLATELET COUNT 190 K/UL (150-450); RED CELL DISTRIBUTION WIDTH 15.8 % (11.6-14.8); WHITE BLOOD COUNT 3.8 K/UL (4.8-10.8)
[2019-03-12 07:21] LABS: ANION GAP 0 mmol/L (5-15); BLOOD UREA NITROGEN 29 mg/dL (7-18); CALCIUM 8.1 MG/DL (8.5-10.1); CARBON DIOXIDE 28 MMOL/L (21-32); CHLORIDE 102 MMOL/L (98-107); CREATININE 1.9 MG/DL (0.55-1.30); POTASSIUM 3.8 MMOL/L (3.5-5.1); SODIUM 130 MMOL/L (136-145)
--- NOTE | 2019-03-12 07:30 | General Progress Note ---
Assessment/Plan Problem List: (1) ISH (acute kidney injury) ICD Codes: N17.9 - Acute kidney failure, unspecified SNOMED: 05395620 (2) Uncontrolled type 2 diabetes mellitus with chronic kidney disease ICD Codes: E11.22 - Type 2 diabetes mellitus with diabetic chronic kidney disease; E11.65 - Type 2 diabetes mellitus with hyperglycemia SNOMED: 36095715, 401390557, 745994799 (3) HIV disease ICD Codes: B20 - Human immunodeficiency virus [HIV] disease SNOMED: 33445808 (4) Respiratory distress ICD Codes: R06.03 - Acute respiratory distress SNOMED: 162141919 Status: stable, progressing Assessment/Plan: - continue Novolog sliding scale every 6 hours - continue Levemir 10 units bid Subjective ROS Limited/Unobtainable: Yes Allergies: Coded Allergies: No Known Allergies (Unverified , 02/05/13) Subjective events noted Item Value Date Time Bedside Blood Glucose 159 mg/dl H 03/12/19 0624 Bedside Blood Glucose 156 mg/dl H 03/12/19 0000 Bedside Blood Glucose 216 mg/dl H 03/11/19 2034 Bedside Blood Glucose 263 mg/dl H 03/11/19 1818 Bedside Blood Glucose 267 mg/dl H 03/11/19 1201 Bedside Blood Glucose 143 mg/dl H 03/11/19 0944 Objective Last 24 Hour Vital Signs Date Time Temp Pulse Resp B/P (MAP) Pulse Ox O2 Delivery O2 Flow Rate FiO2 03/12/19 07:17 86 20 100 T-Piece 6.0 03/12/19 07:15 100 T-Piece 6.0 03/12/19 06:23 117/59 03/12/19 06:23 117/59 03/12/19 04:00 98.2 82 20 117/59 (78) 99 03/12/19 03:55 T-piece T-piece 03/12/19 03:49 80 03/12/19 00:44 78 18 100 T-Piece 6.0 03/12/19 00:37 71 16 100 T-Piece 6.0 03/12/19 00:36 100 T-Piece 6.0 03/12/19 00:00 98.4 81 22 145/64 (91) 100 03/12/19 00:00 T-piece T-piece 03/11/19 23:25 74 03/11/19 21:26 137/64 03/11/19 21:26 137/64 03/11/19 20:00 T-piece T-piece 03/11/19 20:00 98.2 88 20 137/64 (88) 100 03/11/19 19:25 71 18 99 T-Piece 6.0 03/11/19 19:24 91 03/11/19 19:15 68 16 99 T-Piece 6.0 03/11/19 19:13 99 T-Piece 6.0 03/11/19 16:00 85 03/11/19 16:00 99.4 82 24 121/62 (81) 100 03/11/19 16:00 T-piece T-piece 03/11/19 14:02 134/65 03/11/19 14:01 134/65 03/11/19 13:12 74 18 100 T-Piece 6.0 03/11/19 12:51 99 T-Piece 6.0 03/11/19 12:51 62 16 99 T-Piece 6.0 03/11/19 12:00 94 03/11/19 12:00 99.6 97 22 134/65 (88) 97 03/11/19 12:00 T-piece T-piece 03/11/19 09:40 110 113/64 03/11/19 08:37 100 03/11/19 08:00 109 03/11/19 08:00 98.4 110 24 113/64 (80) 97 03/11/19 08:00 98.4 110 24 113/64 (80) 97 03/11/19 08:00 T-piece T-piece Intake and Output 03/11/19 03/12/19 19:00 07:00 Intake Total 1584.664 ml 731 ml Output Total 600 ml 1100 ml Balance 984.664 ml -369 ml Free Water 300 ml 60 ml IV Total 811.664 ml 155 ml Tube Feeding 473 ml 516 ml Output Urine Total 500 ml 1100 ml Stool Total 100 ml # Voids 1 Laboratory Tests 03/12/19 06:57: White Blood Count 3.8L, Red Blood Count 3.10L, Hemoglobin 8.9L, Hematocrit 26.8L , Mean Corpuscular Volume 86, Mean Corpuscular Hemoglobin 28.6, Mean Corpuscular Hemoglobin Concent 33.2, Red Cell Distribution Width 15.8H, Platelet Count 190, Mean Platelet Volume 5.5L, Neutrophils (%) (Auto) 48.8, Lymphocytes (%) (Auto) 34.5, Monocytes (%) (Auto) 14.1H, Eosinophils (%) (Auto) 2.0, Basophils (%) (Auto) 0.7, Sodium Level 130L, Potassium Level 3.8, Chloride Level 102, Carbon Dioxide Level 28, Anion Gap 0L, Blood Urea Nitrogen 29H, Creatinine 1.9H, Estimat Glomerular Filtration Rate 36.5, Glucose Level 172H, Calcium Level 8.1L, Vancomycin Level Trough [Pending] Height (Feet): 6 Height (Inches): 0.00 Weight (Pounds): 223 General Appearance: no apparent distress Neck: normal alignment Cardiovascular: normal rate Respiratory/Chest: decreased breath sounds Abdomen: normal bowel sounds Pelvis: normal external exam Objective Current Medications Medications (Trade) Dose Ordered Sig/Marquis Route PRN Reason Start Time Stop Time Status Last Admin Dose Admin Acetaminophen/ Butalbital/ Caffeine (Fioricet) 1 tab Q8H PRN ORAL For Headache 03/09/19 15:42 04/08/19 15:41 Albuterol/ Ipratropium (Albuterol/ Ipratropium) 3 ml Q6HRT HHN 03/09/19 07:00 03/13/19 19:14 03/12/19 07:21 Amlodipine Besylate (Norvasc) 10 mg DAILY NG 03/09/19 09:00 03/14/19 15:59 03/11/19 09:40 Artificial Tears (Lacri-Lube) 1 applic AC+HS BOTH EYES 03/09/19 11:30 03/20/19 06:29 03/12/19 06:26 Chlorhexidine Gluconate (Jessy-Hex 2%) 1 applic DAILY@1999 TOPIC 03/09/19 20:00 03/27/19 19:59 03/11/19 20:26 Clonidine HCl (Catapres tab) 0.2 mg EVERY 8 HOURS NG 03/09/19 14:00 03/19/19 13:59 03/12/19 06:23 Dextrose (Dextrose 50%) 25 ml Q30M PRN IV Hypoglycemia 03/09/19 07:15 03/31/19 07:14 Dextrose (Dextrose 50%) 50 ml Q30M PRN IV Hypoglycemia 03/09/19 07:15 03/31/19 07:14 Docusate Sodium (Colace) 100 mg TID GT 03/09/19 09:00 03/12/19 08:59 03/11/19 18:25 Fluconazole/ Sodium Chloride 100 ml @ 100 mls/hr Q24H IV 03/09/19 18:00 03/15/19 17:59 03/11/19 18:25 Heparin Sodium (Porcine) (Heparin 5000 units/ml) 5,000 units EVERY 12 HOURS SUBQ 03/09/19 09:00 04/05/19 20:59 03/11/19 20:33 Hydralazine HCl (Apresoline) 10 mg Q4H PRN IV bp over 165 syst 03/09/19 08:00 03/19/19 07:59 Hydralazine HCl (Apresoline) 50 mg Q8HR NG 03/09/19 14:00 03/21/19 21:59 03/12/19 06:23 Insulin Aspart (NovoLOG) EVERY 6 HOURS SUBQ 03/09/19 12:00 03/28/19 11:59 03/12/19 06:24 Insulin Detemir (Levemir) 10 units Q12HR SUBQ 03/09/19 09:00 04/01/19 20:59 03/11/19 20:34 Lorazepam (Ativan 2mg/ml 1ml) 2 mg Q2H PRN IV For Anxiety 03/09/19 07:45 03/13/19 19:44 03/10/19 14:40 Meropenem 1 gm/ Sodium Chloride 55 ml @ 110 mls/hr Q12HR IVPB 03/10/19 21:00 03/13/19 08:59 03/11/19 20:26 Metoclopramide HCl (Reglan) 5 mg Q8H IVP 03/09/19 09:00 03/28/19 08:59 03/12/19 00:08 Metolazone (Zaroxolyn) 10 mg DAILY NG 03/09/19 09:00 03/21/19 09:59 03/11/19 09:50 Midazolam HCl (Versed 2mg/2ml vial) 1 mg Q2H PRN IVP Agitation 03/09/19 08:00 03/15/19 07:59 Pantoprazole (Protonix) 40 mg DAILY IVP 03/09/19 09:00 03/24/19 20:59 03/11/19 10:05 Patient Own Medication (Patient's Own Med) 1 ea BID ORAL 03/09/19 09:00 04/08/19 08:59 03/11/19 18:27 Patient Own Medication (Patient's Own Med) 1 ea BID ORAL 03/12/19 09:00 04/11/19 08:59 Patient Own Medication (Patient's Own Med) 1 ea DAILY ORAL 03/09/19 09:00 04/08/19 08:59 03/11/19 09:41 Quetiapine Fumarate (SEROquel) 25 mg Q12HR ORAL 03/09/19 09:00 04/07/19 20:59 03/11/19 20:27 Sennosides (Senokot) 8.6 mg DAILY ORAL 03/09/19 09:00 03/15/19 11:59 03/11/19 09:58 Trimethoprim/ Sulfamethoxazole (Bactrim-DS) 1 tab DAILY ORAL 03/11/19 12:00 03/18/19 11:59 03/11/19 12:35 Vancomycin HCl (Vanco rx to dose) 1 ea DAILY PRN MISC Per rx protocol 03/09/19 09:00 04/02/19 10:59 Vancomycin HCl 1.5 gm/Sodium Chloride 275 ml @ 137.5 mls/ hr Q24H IVPB 03/10/19 08:00 03/15/19 07:59 03/11/19 08:11 Carlito Nichols MD Mar 12, 2019 07:30
[2019-03-12 08:00] VITALS: BP 149/69
[2019-03-12] MEDS: Levemir Flexpen SUBQ SCH ×2 (09:00→21:18)
[2019-03-12] MEDS: Sennosides 8.6mg tab ORAL SCH (09:00)
[2019-03-12] MEDS: Meropenem 1 GM in NS 55 ML IVPB SCH (09:24)
[2019-03-12] MEDS: Pantoprazole Inj IVP SCH (09:26)
[2019-03-12] MEDS: Bactrim-DS 1 tab ORAL SCH (09:26)
[2019-03-12] MEDS: Heparin 5000 units/ml inj SUBQ SCH ×2 (09:32→21:19)
[2019-03-12] MEDS: TENOFOVIR DISOPROXIL FUMARATE 300 MG ORAL SCH (09:33)
[2019-03-12] MEDS: ETRAVIRINE 200 MG ORAL SCH ×2 (09:33→18:02)
[2019-03-12] MEDS: RALTEGRAVIR 400 MG ORAL SCH ×2 (09:33→18:02)
--- NOTE | 2019-03-12 09:39 | General Progress Note ---
Assessment/Plan Status: stable, progressing Assessment/Plan: 58 y Male admitted to the hospital due to fever, shortness of breath and chest pain. # Multilobar pneumonia in patient with HIV - Broad sp atbx started. Continue Zosyn, Vancomycin, Azithromycin, TM-SMX ( now prophylactic and completed course for PCP/PJ pnuemonia ) - Fluconazole per ID - Droplet precaution removed. - Flu swab negative - Oxygen support, ventilatory support as not able to wean off ventilator due to agitation. - ID consult appreciated. - T piece being tolerated and transferred to [facility] 03/09 - downsize trace collar per pulm - f/u speech fo PMV # Hypoxemic respiratory failure - Critical care follow up. Unable to wean off the ventilator. Tracheostomy completed. - Due to pneumonia - Tolerating CPAP 03/06 - T piece now # Chest pain - EKG with bifascicular block RBB and LAFB, no ST changes. - Trend troponin x3 completed - ECHO completed with no WMA and preserved EF. Dr. Francois consulted. Consideration for outpatient cath vs possibly myocarditis due to underlying viral infection. No evidence of Takotsubo per TTE. NOT a candidate for angiogram at this time. - NGT prn - Pain control with morphine # HIV - Continue HARRT - VL is undetectable per patient report. T cell count > 400 - CD 4 count 191 # HTN - Resume home medication - Clonidine, Isordil. # [place]eline hyponatremia - Monitor - good response to NS # CKD 2-3 - Trend renal function - Dr. Gasca for [employer] if needed again in the future. Currently renal function stable and L femoral dialysis access removed 2 weeks ago. - R PICC done 2 weeks ago # Failure to thrive and moderate protein caloric malnutrition - PEG 03/05 - Tube feeds started and tolerating. Need to follow up with ST for safety - Dr. Ricketts following up. # Hypokalemia - Replete as needed # Hypophosphatemia - Replete as needed # Diabetes Mellitus - Lantus 10 BID - Endocrinology following up appreciated. - Resolved hypoglycemia 03/06 # Loose stool - C diff negative 03/07 # PT mobility requested and NEEDS INTENSIVE PT/OT due to prolongued ( > 30 day hospitalization) # ST evaluation for PM Valve trial and swallowing safety as NEW difficulty swallowing noted today. # Disposition CM and SW follow up for LTAC vs SNF DVT and GI ppx Full code Subjective Allergies: Coded Allergies: No Known Allergies (Unverified , 02/05/13) Objective Last 24 Hour Vital Signs Date Time Temp Pulse Resp B/P (MAP) Pulse Ox O2 Delivery O2 Flow Rate FiO2 03/12/19 09:25 87 149/69 03/12/19 08:00 97.9 87 19 149/69 (95) 99 03/12/19 08:00 T-piece T-piece 03/12/19 07:51 92 03/12/19 07:31 84 20 100 T-Piece 6.0 03/12/19 07:17 86 20 100 T-Piece 6.0 03/12/19 07:15 100 T-Piece 6.0 03/12/19 06:23 117/59 03/12/19 06:23 117/59 03/12/19 04:00 98.2 82 20 117/59 (78) 99 03/12/19 03:55 T-piece T-piece 03/12/19 03:49 80 03/12/19 00:44 78 18 100 T-Piece 6.0 03/12/19 00:37 71 16 100 T-Piece 6.0 03/12/19 00:36 100 T-Piece 6.0 03/12/19 00:00 98.4 81 22 145/64 (91) 100 03/12/19 00:00 T-piece T-piece 03/11/19 23:25 74 03/11/19 21:26 137/64 03/11/19 21:26 137/64 03/11/19 20:00 T-piece T-piece 03/11/19 20:00 98.2 88 20 137/64 (88) 100 03/11/19 19:25 71 18 99 T-Piece 6.0 03/11/19 19:24 91 03/11/19 19:15 68 16 99 T-Piece 6.0 03/11/19 19:13 99 T-Piece 6.0 03/11/19 16:00 85 03/11/19 16:00 99.4 82 24 121/62 (81) 100 03/11/19 16:00 T-piece T-piece 03/11/19 14:02 134/65 7/21/19 14:01 134/65 03/11/19 13:12 74 18 100 T-Piece 6.0 28 03/11/19 12:51 99 T-Piece 6.0 28 03/11/19 12:51 62 16 99 T-Piece 6.0 26 03/11/19 12:00 94 03/11/19 12:00 99.6 97 22 134/65 (88) 97 03/11/19 12:00 T-piece T-piece 03/11/19 09:40 110 113/64 Intake and Output 03/11/19 03/12/19 19:00 07:00 Intake Total 1584.664 ml 731 ml Output Total 600 ml 1100 ml Balance 984.664 ml -369 ml Free Water 300 ml 60 ml IV Total 811.664 ml 155 ml Tube Feeding 473 ml 516 ml Output Urine Total 500 ml 1100 ml Stool Total 100 ml # Voids 1 Laboratory Tests 03/12/19 06:57: White Blood Count 3.8L, Red Blood Count 3.10L, Hemoglobin 8.9L, Hematocrit 26.8L , Mean Corpuscular Volume 86, Mean Corpuscular Hemoglobin 28.6, Mean Corpuscular Hemoglobin Concent 33.2, Red Cell Distribution Width 15.8H, Platelet Count 190, Mean Platelet Volume 5.5L, Neutrophils (%) (Auto) 48.8, Lymphocytes (%) (Auto) 34.5, Monocytes (%) (Auto) 14.1H, Eosinophils (%) (Auto) 2.0, Basophils (%) (Auto) 0.7, Sodium Level 130L, Potassium Level 3.8, Chloride Level 102, Carbon Dioxide Level 28, Anion Gap 0L, Blood Urea Nitrogen 29H, Creatinine 1.9H, Estimat Glomerular Filtration Rate 36.5, Glucose Level 172H, Calcium Level 8.1L, Vancomycin Level Trough 21.4H Height (Feet): 6 Height (Inches): 0.00 Weight (Pounds): 223 Leonor Lopez DO Mar 12, 2019 09:39
--- NOTE | 2019-03-12 10:24 | GI Progress Note ---
Assessment/Plan Problems: (1) Anemia ICD Codes: D64.9 - Anemia, unspecified SNOMED: 010135459 (2) Anxiety ICD Codes: F41.9 - Anxiety disorder, unspecified SNOMED: 05153120 (3) Anemia ICD Codes: D64.9 - Anemia, unspecified SNOMED: 259408710 (4) Uncontrolled type 2 diabetes mellitus with chronic kidney disease ICD Codes: E11.22 - Type 2 diabetes mellitus with diabetic chronic kidney disease; E11.65 - Type 2 diabetes mellitus with hyperglycemia SNOMED: 39058359, 702275196, 844659029 Status: unchanged Status Narrative Discussed with Dr. Ricketts Assessment/Plan 1. History of HIV. 2. Hypertension. 3. Vertigo. 4. History of headaches. 5. History of diabetes. 6. Respiratory failure 7. Dysphagia 8. ileus s/p PEG GTFs per RD GT site care daily/prn prn transfusions ppi electrolyte replacement follow labs The patient was seen and examined at bedside and all new and available data was reviewed in the patients chart. I agree with the above findings, impression and plan. (Patient seen earlier today. Signature stamp does not reflect patient encounter time.). - Kg Ricketts MD Subjective Subjective limited, has complained of hunger Objective Last 24 Hour Vital Signs Date Time Temp Pulse Resp B/P (MAP) Pulse Ox O2 Delivery O2 Flow Rate FiO2 03/12/19 09:25 87 149/69 03/12/19 08:00 97.9 87 19 149/69 (95) 99 03/12/19 08:00 T-piece T-piece 03/12/19 07:51 92 03/12/19 07:31 84 20 100 T-Piece 6.0 03/12/19 07:17 86 20 100 T-Piece 6.0 03/12/19 07:15 100 T-Piece 6.0 03/12/19 06:23 117/59 03/12/19 06:23 117/59 03/12/19 04:00 98.2 82 20 117/59 (78) 99 03/12/19 03:55 T-piece T-piece 03/12/19 03:49 80 03/12/19 00:44 78 18 100 T-Piece 6.0 03/12/19 00:37 71 16 100 T-Piece 6.0 28 03/12/19 00:36 100 T-Piece 6.0 28 03/12/19 00:00 98.4 81 22 145/64 (91) 100 03/12/19 00:00 T-piece T-piece 03/11/19 23:25 74 03/11/19 21:26 137/64 03/11/19 21:26 137/64 03/11/19 20:00 T-piece T-piece 03/11/19 20:00 98.2 88 20 137/64 (88) 100 03/11/19 19:25 71 18 99 T-Piece 6.0 28 03/11/19 19:24 91 03/11/19 19:15 68 16 99 T-Piece 6.0 28 03/11/19 19:13 99 T-Piece 6.0 03/11/19 16:00 85 03/11/19 16:00 99.4 82 24 121/62 (81) 100 03/11/19 16:00 T-piece T-piece 03/11/19 14:02 134/65 03/11/19 14:01 134/65 03/11/19 13:12 74 18 100 T-Piece 6.0 03/11/19 12:51 99 T-Piece 6.0 28 03/11/19 12:51 62 16 99 T-Piece 6.0 03/11/19 12:00 94 03/11/19 12:00 99.6 97 22 134/65 (88) 97 03/11/19 12:00 T-piece T-piece Intake and Output 03/11/19 03/12/19 19:00 07:00 Intake Total 1584.664 ml 731 ml Output Total 600 ml 1100 ml Balance 984.664 ml -369 ml Free Water 300 ml 60 ml IV Total 811.664 ml 155 ml Tube Feeding 473 ml 516 ml Output Urine Total 500 ml 1100 ml Stool Total 100 ml # Voids 1 Laboratory Tests Test 03/12/19 06:57 White Blood Count 3.8 K/UL (4.8-10.8) L Red Blood Count 3.10 M/UL (4.70-6.10) L Hemoglobin 8.9 G/DL (14.2-18.0) L Hematocrit 26.8 % (42.0-52.0) L Mean Corpuscular Volume 86 FL (80-99) Mean Corpuscular Hemoglobin 28.6 PG (27.0-31.0) Mean Corpuscular Hemoglobin Concent 33.2 G/DL (32.0-36.0) Red Cell Distribution Width 15.8 % (11.6-14.8) H Platelet Count 190 K/UL (150-450) Mean Platelet Volume 5.5 FL (6.5-10.1) L Neutrophils (%) (Auto) 48.8 % (45.0-75.0) Lymphocytes (%) (Auto) 34.5 % (20.0-45.0) Monocytes (%) (Auto) 14.1 % (1.0-10.0) H Eosinophils (%) (Auto) 2.0 % (0.0-3.0) Basophils (%) (Auto) 0.7 % (0.0-2.0) Sodium Level 130 MMOL/L (136-145) L Potassium Level 3.8 MMOL/L (3.5-5.1) Chloride Level 102 MMOL/L (98-107) Carbon Dioxide Level 28 MMOL/L (21-32) Anion Gap 0 mmol/L (5-15) L Blood Urea Nitrogen 29 mg/dL (7-18) H Creatinine 1.9 MG/DL (0.55-1.30) H Estimat Glomerular Filtration Rate 36.5 mL/min (>60) Glucose Level 172 MG/DL (74-106) H Calcium Level 8.1 MG/DL (8.5-10.1) L Vancomycin Level Trough 21.4 ug/mL (5.0-12.0) H Height (Feet): 6 Height (Inches): 0.00 Weight (Pounds): 223 General Appearance: WD/WN, no apparent distress, alert, thin Cardiovascular: normal rate Respiratory/Chest: normal breath sounds, no respiratory distress, other - Tracheostomy present Abdominal Exam: normal bowel sounds, non tender, soft, GT site Extremities: non-tender Hortencia Zheng NP Mar 12, 2019 10:24
--- NOTE | 2019-03-12 11:28 | NUR ---
RD ASSESSMENT & RECOMMENDATIONS SEE CARE ACTIVITY FOR COMPLETE ASSESSMENT DAILY ESTIMATED NEEDS: Needs based on Pulmonary, HIV, sedentary/ 85kg adj 23-30 kcals/kg 5986-6411 total kcals 1-1.5 g protein/kg 85-128 g total protein 25-30 mL/kg 8793-8708 total fluid mLs NUTRITION DIAGNOSIS: *Swallowing difficulty r/t respiratory status as evidenced by ICU status, unable to wean, now s/p trach and PEG placement, on GT feeding. * Altered nutrition related lab values R/T clinical condition, ISH, DM as evidenced by elev K (5.8- now wnl->5.5 -> wnl), elev creat (1.5->3.9->2.6-> 1.6), elev phos (5.5-> 2.4), A1C 7.0. CURRENT TF:Glucerna 1.5 @ 43ml/hr x 24 hrs ENTERAL NUTRITION RECOMMENDATIONS-->> Glucerna 1.5 @ 55ml/hr x 24 hrs to provide 1320ml, 1980kcal, 109g prot, 1002ml free water - Increase goal rate to 55ml/hr x 24 hrs to meet 100% est kcal/prot needs - Flush per MD/ HOB over 30 degrees ADDITIONAL RECOMMENDATIONS: 1) CALIBRATED BEDSCALE WT, weekly wts 2) Monitor renal fxn, K and Phos- K and phos now wnl, renal fxn improved. -> Monitor need to change TF back to Nepro (h/o elev K and phos) 3) Monitor TF tolerance -> Now on reglan 4) Pt w/ rectal tube: rec to hold all stool softeners 5) F/up w/ [employer] [employer] eval for possible PMV and oral grat 6) Rec wound care eval, add KONSTANTIN BID via GT for skin integrity
--- NOTE | 2019-03-12 11:42 | NUR ---
NURSE NOTES: Physical Therapist at bedside.
[2019-03-12 12:00] VITALS: BP 123/63
--- NOTE | 2019-03-12 12:02 | Pulmonology Progress Note ---
Assessment/Plan Assessment/Plan Assessment/Plan: VDRF, extubated 02/19, re-intubated 02/20, trach 03/02, trach collar 03/07 S/P GT 03/05 Hemoptysis, hematemesis ARDS Acute respiratory failure B pulmonary infiltrates, ? multilobar CAP vs atypical infection vs other ? PJP AIDS (CD4 191) NSTEMI H/O prior CVA HTN HL DM with uncontrolled BS ISH on CKD Anemia, FOBT + PLAN: TC Downsize to 6 non cuffed shiley RTC and PRN HHN's Continue Abx & flucon per ID Off steroids Monitor volumes and renal function, D/C Metolazone F/U cards recs: will need further ischemia eval/cath @ some point DVT Px: Hep SQ Monitor for bleeding, F/U GI recs, transfuse PRN Hb < 7 F/U ENDO recs TF's, TAR CHASER eval for diet and PMV FC, continue to discuss GOC Monitor MS D/W Dr. Duval D/W RN and RT @ bedside CCT 35 Subjective Allergies: Coded Allergies: No Known Allergies (Unverified , 02/05/13) Subjective AFVSS on TC, celestino TFs, no distress, no cough, no SOB, no FC Walked with PT ISH Objective Last 24 Hour Vital Signs Date Time Temp Pulse Resp B/P (MAP) Pulse Ox O2 Delivery O2 Flow Rate FiO2 03/12/19 09:25 87 149/69 03/12/19 08:00 97.9 87 19 149/69 (95) 99 03/12/19 08:00 T-piece T-piece 03/12/19 07:51 92 03/12/19 07:31 84 20 100 T-Piece 6.0 03/12/19 07:17 86 20 100 T-Piece 6.0 03/12/19 07:15 100 T-Piece 6.0 03/12/19 06:23 117/59 03/12/19 06:23 117/59 03/12/19 04:00 98.2 82 20 117/59 (78) 99 03/12/19 03:55 T-piece T-piece 03/12/19 03:49 80 03/12/19 00:44 78 18 100 T-Piece 6.0 03/12/19 00:37 71 16 100 T-Piece 6.0 28 03/12/19 00:36 100 T-Piece 6.0 28 03/12/19 00:00 98.4 81 22 145/64 (91) 100 03/12/19 00:00 T-piece T-piece 03/11/19 23:25 74 03/11/19 21:26 137/64 03/11/19 21:26 137/64 03/11/19 20:00 T-piece T-piece 03/11/19 20:00 98.2 88 20 137/64 (88) 100 03/11/19 19:25 71 18 99 T-Piece 6.0 28 03/11/19 19:24 91 03/11/19 19:15 68 16 99 T-Piece 6.0 03/11/19 19:13 99 T-Piece 6.0 03/11/19 16:00 85 03/11/19 16:00 99.4 82 24 121/62 (81) 100 03/11/19 16:00 T-piece T-piece 03/11/19 14:02 134/65 03/11/19 14:01 134/65 03/11/19 13:12 74 18 100 T-Piece 6.0 03/11/19 12:51 99 T-Piece 6.0 03/11/19 12:51 62 16 99 T-Piece 6.0 26 Intake and Output 03/11/19 03/12/19 19:00 07:00 Intake Total 1584.664 ml 731 ml Output Total 600 ml 1100 ml Balance 984.664 ml -369 ml Free Water 300 ml 60 ml IV Total 811.664 ml 155 ml Tube Feeding 473 ml 516 ml Output Urine Total 500 ml 1100 ml Stool Total 100 ml # Voids 1 General Appearance: WD/WN, no acute distress HEENT: normocephalic, atraumatic, status post trach Respiratory/Chest: chest wall non-tender, lungs clear, normal breath sounds, no respiratory distress, no accessory muscle use Cardiovascular: normal peripheral pulses, normal rate, regular rhythm Abdomen: normal bowel sounds, soft, non tender, no organomegaly, non distended Extremities: no cyanosis, no clubbing, no edema Laboratory Tests 03/12/19 06:57: White Blood Count 3.8L, Red Blood Count 3.10L, Hemoglobin 8.9L, Hematocrit 26.8L , Mean Corpuscular Volume 86, Mean Corpuscular Hemoglobin 28.6, Mean Corpuscular Hemoglobin Concent 33.2, Red Cell Distribution Width 15.8H, Platelet Count 190, Mean Platelet Volume 5.5L, Neutrophils (%) (Auto) 48.8, Lymphocytes (%) (Auto) 34.5, Monocytes (%) (Auto) 14.1H, Eosinophils (%) (Auto) 2.0, Basophils (%) (Auto) 0.7, Sodium Level 130L, Potassium Level 3.8, Chloride Level 102, Carbon Dioxide Level 28, Anion Gap 0L, Blood Urea Nitrogen 29H, Creatinine 1.9H, Estimat Glomerular Filtration Rate 36.5, Glucose Level 172H, Calcium Level 8.1L, Vancomycin Level Trough 21.4H Current Medications Medications (Trade) Dose Ordered Sig/Marquis Route PRN Reason Start Time Stop Time Status Last Admin Dose Admin Acetaminophen/ Butalbital/ Caffeine (Fioricet) 1 tab Q8H PRN ORAL For Headache 03/09/19 15:42 04/08/19 15:41 Albuterol/ Ipratropium (Albuterol/ Ipratropium) 3 ml Q6HRT HHN 03/09/19 07:00 03/13/19 19:14 03/12/19 07:21 Amlodipine Besylate (Norvasc) 10 mg DAILY NG 03/09/19 09:00 03/14/19 15:59 03/12/19 09:25 Artificial Tears (Lacri-Lube) 1 applic AC+HS BOTH EYES 03/09/19 11:30 03/20/19 06:29 03/12/19 06:26 Chlorhexidine Gluconate (Jessy-Hex 2%) 1 applic DAILY@2000 TOPIC 03/09/19 20:00 03/27/19 19:59 03/11/19 20:26 Clonidine HCl (Catapres tab) 0.2 mg EVERY 8 HOURS NG 03/09/19 14:00 03/19/19 13:59 03/12/19 06:23 Dextrose (Dextrose 50%) 25 ml Q30M PRN IV Hypoglycemia 03/09/19 07:15 03/31/19 07:14 Dextrose (Dextrose 50%) 50 ml Q30M PRN IV Hypoglycemia 03/09/19 07:15 03/31/19 07:14 Fluconazole/ Sodium Chloride 100 ml @ 100 mls/hr Q24H IV 03/09/19 18:00 03/15/19 17:59 03/11/19 18:25 Heparin Sodium (Porcine) (Heparin 5000 units/ml) 5,000 units EVERY 12 HOURS SUBQ 03/09/19 09:00 04/05/19 20:59 03/12/19 09:32 Hydralazine HCl (Apresoline) 10 mg Q4H PRN IV bp over 165 syst 03/09/19 08:00 03/19/19 07:59 Hydralazine HCl (Apresoline) 50 mg Q8HR NG 03/09/19 14:00 03/21/19 21:59 03/12/19 06:23 Insulin Aspart (NovoLOG) EVERY 6 HOURS SUBQ 03/09/19 12:00 03/28/19 11:59 03/12/19 06:24 Insulin Detemir (Levemir) 10 units Q12HR SUBQ 03/09/19 09:00 04/01/19 20:59 03/11/19 20:34 Lorazepam (Ativan 2mg/ml 1ml) 2 mg Q2H PRN IV For Anxiety 03/09/19 07:45 03/13/19 19:44 03/10/19 14:40 Meropenem 1 gm/ Sodium Chloride 55 ml @ 110 mls/hr Q12HR IVPB 03/10/19 21:00 03/13/19 08:59 03/12/19 09:24 Metoclopramide HCl (Reglan) 5 mg Q8H IVP 03/09/19 09:00 03/28/19 08:59 03/12/19 09:25 Metolazone (Zaroxolyn) 10 mg DAILY NG 03/09/19 09:00 03/21/19 09:59 03/12/19 09:25 Midazolam HCl (Versed 2mg/2ml vial) 1 mg Q2H PRN IVP Agitation 03/09/19 08:00 03/15/19 07:59 Pantoprazole (Protonix) 40 mg DAILY IVP 03/09/19 09:00 03/24/19 20:59 03/12/19 09:26 Patient Own Medication (Patient's Own Med) 1 ea BID ORAL 03/09/19 09:00 04/08/19 08:59 03/12/19 09:33 Patient Own Medication (Patient's Own Med) 1 ea BID ORAL 03/12/19 09:00 04/11/19 08:59 03/12/19 09:33 Patient Own Medication (Patient's Own Med) 1 ea DAILY ORAL 03/09/19 09:00 04/08/19 08:59 03/12/19 09:33 Quetiapine Fumarate (SEROquel) 25 mg Q12HR ORAL 03/09/19 09:00 04/07/19 20:59 03/12/19 09:25 Trimethoprim/ Sulfamethoxazole (Bactrim-DS) 1 tab DAILY ORAL 03/11/19 12:00 03/18/19 11:59 03/12/19 09:26 Vancomycin HCl (Vanco rx to dose) 1 ea DAILY PRN MISC Per rx protocol 03/09/19 09:00 04/02/19 10:59 Brett Meredith MD Mar 12, 2019 12:02
--- NOTE | 2019-03-12 12:14 | Hematology/Onc Progress Note ---
Assessment/Plan Assessment/Plan ASSESSMENT AND RECS: # Pancytopenia with all three cell lines have, decreasing counts could also be due to underlying hiv meds, sepsis as well as HIV --> Anemia workup has been reviewed. Ferritin 182 --> Hep panel negative and HIV confirmed positive --> No evidence of hemolysis is noted, peripheral smear has been reviewed. --> Hgb goal >7. Transfuse prn. --> Epogen or iron at this time is not particularly indicated --> Medications have been reviewed --> Stool OB negative --> Blood tx: 1 unit on 02/10/19, --> off ASA, off heparin, off lovenox --> Hgb trend: 7.6-->8.2-->9.4-->8.4-->8.2 -->8.9-->10.3->7.9-->8.1->7.8-->8.7-- >8.4-->8.1-->7.9-->8.2-->7.6-->8.3-->8.8-->8.7->8.9 --> WBC trend: 5-->4-->3.2-->3.1-->3.4-->2.8-->4.3-->3.8 --> Plt trend: 153-->257-->224-->205-->253-->310-->201->177-->115-->104-->100--> 106-->96k-->93k-->104-->151-->166-->190 --> Transfuse if Plt < 20k and fever, or if Plt < 10k without fever --> WILLIAM screen negative # Multilobar pneumonia in patient with HIV. Recs per ID. --> Broad sp abx started. Continue on abx as per id --> Droplet precaution prn # Hypoxemic respiratory failure. s/p trach --> Due to pneumonia, on abx --> pulm recs reviewed --> SBT as per pulm # Chest pain. Cardiology is following, appreciate recs --> EKG with bifascicular block RBB and LAFB, no ST changes --> Trend troponin x3 --> NGT prn # HIV. --> Continue HARRT --> VL is undetectable per patient report. # HTN --> Resume home medication # DVT and GI ppx The time the note is entered does not reflect the time the patient was examined. I greatly appreciate the consultation. Subjective Constitutional: Denies: no symptoms, chills, fever, malaise, weakness, other HEENT: Denies: no symptoms, eye pain, blurred vision, tearing, double vision, ear pain, ear discharge, nose pain, nose congestion, throat pain, throat swelling, mouth pain, mouth swelling, other Respiratory: Denies: no symptoms, cough, shortness of breath, SOB with excertion, SOB at rest, sputum, wheezing, other Gastrointestinal/Abdominal: Denies: no symptoms, abdomen distended, abdominal pain, black stools, tarry stools, blood in stool, constipated, diarrhea, difficulty swallowing, nausea, poor appetite, poor fluid intake, rectal bleeding , vomiting, other Genitourinary: Denies: no symptoms, burning, discharge, frequency, flank pain, hematuria, incontinence, pain, urgency, other Endocrine: Denies: no symptoms, excessive sweating, flushing, intolerance to cold, intolerance to heat, increased hunger, increased thirst, increased urine, unexplained weight gain, unexplained weight loss, other Hematologic/Lymphatic: Denies: no symptoms, anemia, easy bleeding, easy bruising, adenopathy, other Allergies: Coded Allergies: No Known Allergies (Unverified , 02/05/13) Subjective Subjective 02/11: Hgb yesterday was 7.6, s/p 1 unit prbc. Current hgb at 8.2. Pt attempted to pull out tubes per nursing team, soft restraints applied. 02/13: Pt in ICU and intubated. Pt currently sedated. Current hgb 9.4. 02/14: Pt remains in icu, sedated. Hgb stable. 02/15: Remains in icu, lethargic. No acute events. Hgb stable. 02/16: Remains in icu. CXR today shows worsening CHF/pulmonary edema. Pt wake and sedation decrease for weaning. 02/18: Remains in icu. Pt on vent. CXR today shows pulmonary edema, persistent small left pleural effusion. 02/19: Remains in the icu, now extubated, seen by pulm, labs reviewed 02/20: Remains in ICU, Pt intubated, CXR today shows Congestive heart failure with interval worsening 02/21: reintubated, tolerating vent well, seen by pulm/cc 02/23: pt remains on fently gtt, prn ativan, currently intubated on vent, no further bleeding, d/w RN> 02/24:failed weaning, fentanyl drip decreased. 02/25:pt seen in am,sedated. 02/27: remains intubated, may need trach, no bleeding today 02/28: tolerated cpap, now back on vent, no bleeding off asa/lovenox 03/01: fentanyl gtt is now off, remains in icu, dw rn 03/02: to get trach today, at approx 12, no events, labs somewhat lower 03/03: still confused on exam, d/w rn, no events, on fentanyl gtt 03/05: to get peg tomorrow, no f/c 03/06: received peg yesterday, tolerating tfs well, no f/c, labs reviewed 03/07: remains in icu, trach collar, dw pulm, no f/c 03/08: seen by neuro, no bleeding, no f/c, seen by pulm/cc, neuro 03/09: transferred to [facility], on t-piece, on abx, labs reviewed. 03/10: resting in bed, no acute events, labs reviewed 03/11: awake and alert, not getting out of bed, no reports of bleeding, in SDU off the vent on T piece via trach, sat in a chair for 2hrs 03/12: no events to report, no f/c, in the sdu, no bleeding seen Objective Objective Current Medications Medications (Trade) Dose Ordered Sig/Marquis Route PRN Reason Start Time Stop Time Status Last Admin Dose Admin Acetaminophen/ Butalbital/ Caffeine (Fioricet) 1 tab Q8H PRN ORAL For Headache 03/09/19 15:42 04/08/19 15:41 Albuterol/ Ipratropium (Albuterol/ Ipratropium) 3 ml Q6HRT HHN 03/09/19 07:00 03/13/19 19:14 03/12/19 07:21 Amlodipine Besylate (Norvasc) 10 mg DAILY NG 03/09/19 09:00 03/14/19 15:59 03/12/19 09:25 Artificial Tears (Lacri-Lube) 1 applic AC+HS BOTH EYES 03/09/19 11:30 03/20/19 06:29 03/12/19 06:26 Chlorhexidine Gluconate (Jessy-Hex 2%) 1 applic DAILY@2000 TOPIC 03/09/19 20:00 03/27/19 19:59 03/11/19 20:26 Clonidine HCl (Catapres tab) 0.2 mg EVERY 8 HOURS NG 03/09/19 14:00 03/19/19 13:59 03/12/19 06:23 Dextrose (Dextrose 50%) 25 ml Q30M PRN IV Hypoglycemia 03/09/19 07:15 03/31/19 07:14 Dextrose (Dextrose 50%) 50 ml Q30M PRN IV Hypoglycemia 03/09/19 07:15 03/31/19 07:14 Fluconazole/ Sodium Chloride 100 ml @ 100 mls/hr Q24H IV 03/09/19 18:00 03/15/19 17:59 03/11/19 18:25 Heparin Sodium (Porcine) (Heparin 5000 units/ml) 5,000 units EVERY 12 HOURS SUBQ 03/09/19 09:00 04/05/19 20:59 03/12/19 09:32 Hydralazine HCl (Apresoline) 10 mg Q4H PRN IV bp over 165 syst 03/09/19 08:00 03/19/19 07:59 Hydralazine HCl (Apresoline) 50 mg Q8HR NG 03/09/19 14:00 03/21/19 21:59 03/12/19 06:23 Insulin Aspart (NovoLOG) EVERY 6 HOURS SUBQ 03/09/19 12:00 03/28/19 11:59 03/12/19 06:24 Insulin Detemir (Levemir) 10 units Q12HR SUBQ 03/09/19 09:00 04/01/19 20:59 03/11/19 20:34 Lorazepam (Ativan 2mg/ml 1ml) 2 mg Q2H PRN IV For Anxiety 03/09/19 07:45 03/13/19 19:44 03/10/19 14:40 Meropenem 1 gm/ Sodium Chloride 55 ml @ 110 mls/hr Q12HR IVPB 03/10/19 21:00 03/13/19 08:59 03/12/19 09:24 Metoclopramide HCl (Reglan) 5 mg Q8H IVP 03/09/19 09:00 8 08:59 03/12/19 09:25 Midazolam HCl (Versed 2mg/2ml vial) 1 mg Q2H PRN IVP Agitation 03/09/19 08:00 03/15/19 07:59 Pantoprazole (Protonix) 40 mg DAILY IVP 03/09/19 09:00 03/24/19 20:59 03/12/19 09:26 Patient Own Medication (Patient's Own Med) 1 ea BID ORAL 03/09/19 09:00 04/08/19 08:59 03/12/19 09:33 Patient Own Medication (Patient's Own Med) 1 ea BID ORAL 03/12/19 09:00 04/11/19 08:59 03/12/19 09:33 Patient Own Medication (Patient's Own Med) 1 ea DAILY ORAL 03/09/19 09:00 04/08/19 08:59 03/12/19 09:33 Quetiapine Fumarate (SEROquel) 25 mg Q12HR ORAL 03/09/19 09:00 04/07/19 20:59 03/12/19 09:25 Trimethoprim/ Sulfamethoxazole (Bactrim-DS) 1 tab DAILY ORAL 03/11/19 12:00 03/18/19 11:59 03/12/19 09:26 Vancomycin HCl (Vanco rx to dose) 1 ea DAILY PRN MISC Per rx protocol 03/09/19 09:00 04/02/19 10:59 Last 24 Hour Vital Signs Date Time Temp Pulse Resp B/P (MAP) Pulse Ox O2 Delivery O2 Flow Rate FiO2 03/12/19 09:25 87 149/69 03/12/19 08:00 97.9 87 19 149/69 (95) 99 03/12/19 08:00 T-piece T-piece 03/12/19 07:51 92 03/12/19 07:31 84 20 100 T-Piece 6.0 28 03/12/19 07:17 86 20 100 T-Piece 6.0 03/12/19 07:15 100 T-Piece 6.0 03/12/19 06:23 117/59 03/12/19 06:23 117/59 03/12/19 04:00 98.2 82 20 117/59 (78) 99 03/12/19 03:55 T-piece T-piece 03/12/19 03:49 80 03/12/19 00:44 78 18 100 T-Piece 6.0 03/12/19 00:37 71 16 100 T-Piece 6.0 03/12/19 00:36 100 T-Piece 6.0 03/12/19 00:00 98.4 81 22 145/64 (91) 100 03/12/19 00:00 T-piece T-piece 03/11/19 23:25 74 03/11/19 21:26 137/64 03/11/19 21:26 137/64 03/11/19 20:00 T-piece T-piece 03/11/19 20:00 98.2 88 20 137/64 (88) 100 03/11/19 19:25 71 18 99 T-Piece 6.0 03/11/19 19:24 91 03/11/19 19:15 68 16 99 T-Piece 6.0 03/11/19 19:13 99 T-Piece 6.0 03/11/19 16:00 85 03/11/19 16:00 99.4 82 24 121/62 (81) 100 03/11/19 16:00 T-piece T-piece 03/11/19 14:02 134/65 03/11/19 14:01 134/65 03/11/19 13:12 74 18 100 T-Piece 6.0 03/11/19 12:51 99 T-Piece 6.0 03/11/19 12:51 62 16 99 T-Piece 6.0 03/11/19 12:00 94 03/11/19 12:00 99.6 97 22 134/65 (88) 97 03/11/19 12:00 T-piece T-piece 03/11/19 09:40 110 113/64 03/11/19 08:37 100 03/11/19 08:00 109 03/11/19 08:00 98.4 110 24 113/64 (80) 97 03/11/19 08:00 98.4 110 24 113/64 (80) 97 03/11/19 08:00 T-piece T-piece 03/11/19 07:19 78 18 100 T-Piece 6.0 03/11/19 07:00 66 18 100 T-Piece 6.0 03/11/19 07:00 100 T-Piece 6.0 03/11/19 06:08 142/86 03/11/19 06:08 142/86 03/11/19 04:00 T-piece T-piece 03/11/19 04:00 98.4 90 23 142/86 (104) 97 03/11/19 04:00 90 03/11/19 00:44 86 20 99 T-Piece 6.0 03/11/19 00:34 84 20 99 T-Piece 6.0 03/11/19 00:33 99 T-Piece 6.0 03/11/19 00:00 98.5 83 23 125/65 (85) 97 03/11/19 00:00 T-piece T-piece 03/11/19 00:00 84 03/10/19 21:55 132/59 03/10/19 21:54 132/59 03/10/19 20:00 98.8 89 23 132/59 (83) 99 03/10/19 20:00 T-piece T-piece 03/10/19 20:00 90 03/10/19 19:22 89 20 99 T-Piece 6.0 03/10/19 19:13 99 T-Piece 6.0 03/10/19 19:12 88 20 99 T-Piece 6.0 03/10/19 16:00 98.2 81 26 143/74 (97) 99 03/10/19 16:00 T-piece T-piece 03/10/19 15:28 90 03/10/19 13:39 99 18 99 T-Piece 6.0 03/10/19 13:32 151/74 03/10/19 13:32 151/74 03/10/19 13:26 100 T-Piece 6.0 03/10/19 13:25 89 18 100 T-Piece 6.0 28 Intake and Output 03/11/19 03/12/19 19:00 07:00 Intake Total 1584.664 ml 731 ml Output Total 600 ml 1100 ml Balance 984.664 ml -369 ml Free Water 300 ml 60 ml IV Total 811.664 ml 155 ml Tube Feeding 473 ml 516 ml Output Urine Total 500 ml 1100 ml Stool Total 100 ml # Voids 1 Labs Test 03/10/19 05:20 03/11/19 04:30 03/12/19 06:57 White Blood Count 4.3 K/UL (4.8-10.8) 3.8 K/UL (4.8-10.8) 3.8 K/UL (4.8-10.8) Red Blood Count 3.05 M/UL (4.70-6.10) 3.03 M/UL (4.70-6.10) 3.10 M/UL (4.70-6.10) Hemoglobin 8.8 G/DL (14.2-18.0) 8.7 G/DL (14.2-18.0) 8.9 G/DL (14.2-18.0) Hematocrit 26.4 % (42.0-52.0) 26.1 % (42.0-52.0) 26.8 % (42.0-52.0) Mean Corpuscular Volume 86 FL (80-99) 86 FL (80-99) 86 FL (80-99) Mean Corpuscular Hemoglobin 28.8 PG (27.0-31.0) 28.7 PG (27.0-31.0) 28.6 PG (27.0-31.0) Mean Corpuscular Hemoglobin Concent 33.3 G/DL (32.0-36.0) 33.2 G/DL (32.0-36.0) 33.2 G/DL (32.0-36.0) Red Cell Distribution Width 15.3 % (11.6-14.8) 15.7 % (11.6-14.8) 15.8 % (11.6-14.8) Platelet Count 151 K/UL (150-450) 166 K/UL (150-450) 190 K/UL (150-450) Mean Platelet Volume 6.0 FL (6.5-10.1) 5.9 FL (6.5-10.1) 5.5 FL (6.5-10.1) Neutrophils (%) (Auto) 61.7 % (45.0-75.0) 51.9 % (45.0-75.0) 48.8 % (45.0-75.0) Lymphocytes (%) (Auto) 23.0 % (20.0-45.0) 33.0 % (20.0-45.0) 34.5 % (20.0-45.0) Monocytes (%) (Auto) 13.5 % (1.0-10.0) 12.4 % (1.0-10.0) 14.1 % (1.0-10.0) Eosinophils (%) (Auto) 1.0 % (0.0-3.0) 2.0 % (0.0-3.0) 2.0 % (0.0-3.0) Basophils (%) (Auto) 0.8 % (0.0-2.0) 0.7 % (0.0-2.0) 0.7 % (0.0-2.0) Sodium Level 138 MMOL/L (136-145) 138 MMOL/L (136-145) 130 MMOL/L (136-145) Potassium Level 3.9 MMOL/L (3.5-5.1) 3.6 MMOL/L (3.5-5.1) 3.8 MMOL/L (3.5-5.1) Chloride Level 101 MMOL/L (98-107) 103 MMOL/L (98-107) 102 MMOL/L (98-107) Carbon Dioxide Level 31 MMOL/L (21-32) 29 MMOL/L (21-32) 28 MMOL/L (21-32) Anion Gap 6 mmol/L (5-15) 6 mmol/L (5-15) 0 mmol/L (5-15) Blood Urea Nitrogen 19 mg/dL (7-18) 17 mg/dL (7-18) 29 mg/dL (7-18) Creatinine 1.4 MG/DL (0.55-1.30) 1.3 MG/DL (0.55-1.30) 1.9 MG/DL (0.55-1.30) Estimat Glomerular Filtration Rate 51.9 mL/min (>60) 56.5 mL/min (>60) 36.5 mL/min (>60) Glucose Level 190 MG/DL (74-106) 154 MG/DL (74-106) 172 MG/DL (74-106) Calcium Level 8.4 MG/DL (8.5-10.1) 8.5 MG/DL (8.5-10.1) 8.1 MG/DL (8.5-10.1) Total Bilirubin 0.4 MG/DL (0.2-1.0) 0.4 MG/DL (0.2-1.0) Aspartate Amino Transf (AST/SGOT) 42 U/L (15-37) 37 U/L (15-37) Alanine Aminotransferase (ALT/SGPT) 52 U/L (12-78) 49 U/L (12-78) Alkaline Phosphatase 175 U/L (46-116) 157 U/L (46-116) Total Protein 5.5 G/DL (6.4-8.2) 5.7 G/DL (6.4-8.2) Albumin 2.4 G/DL (3.4-5.0) 2.1 G/DL (3.4-5.0) Globulin 3.1 g/dL 3.6 g/dL Albumin/Globulin Ratio 0.8 (1.0-2.7) 0.6 (1.0-2.7) Phosphorus Level 2.4 MG/DL (2.5-4.9) Magnesium Level 1.7 MG/DL (1.8-2.4) C-Reactive Protein, Quantitative 5.2 mg/dL (0.00-0.90) Pro-B-Type Natriuretic Peptide 7387 pg/mL (0-125) Vancomycin Level Trough 21.4 ug/mL (5.0-12.0) Height (Feet): 6 Height (Inches): 0.00 Weight (Pounds): 223 Objective PHYSICAL EXAMINATION: GENERAL: NAD VITAL SIGNS: Have been reviewed. HEAD AND NECK: Shows no JVD. NG+, trach ++++ vent+ LUNGS: Coarse rhonchi. CARDIOVASCULAR: Shows regular S1 and S2 with no gallop or murmur. ABDOMEN: Soft. ++ peg EXTREMITIES: No pitting edema. Kleynberg,Chan L. MD Mar 12, 2019 12:14
--- NOTE | 2019-03-12 12:31 | Infectious Diseases Prog Note ---
Assessment/Plan Assessment/Plan A) 1) pneumonia - ? aspiration/hcap, ? CAP, ? pneumocystis pna, ? fungal ( cryptococcus), sepsis, leukocytosis, ? 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, on anti-retroviral treatment 4) rule out TB pna, in isolation - afb smear on bronchoscopy is negative, TB spot negative 5) pmh noted - hypertension, ckd, anemia, dm, cva, tia, migraines 6) allergies - nkda, sh-negative, fh-nc, mar noted 7) d/w RN P) 1) vancomycin, diflucan, meropenem - finish course - s/p pneumocystis treatment - f/u cultures negative - s/p trach - bactrim pcp prophylaxis - has been weaned off vent - clinically better - d/w Dr. Meredith about abx - - d/w pharmacy and RN 2) leukocytosis better, monitor labs and chest x-ray, no pressors, lgt noted 3) diarrhea but on stool softeners 4) weaning per pulmonary medicine 5) icu supportive care, vent support 6) skin care per protocol 7) anti-retroviral treatment for HIV 8) d/w pharmacy Subjective Constitutional: Reports: fatigue, other - + trach, no vent ; Denies: fever HEENT: Denies: congestion Respiratory: Denies: shortness of breath Cardiovascular: Denies: chest pain Gastrointestinal/Abdominal: Reports: diarrhea, other - + rectal tube; Denies: nausea, vomiting Genitourinary: Reports: other - + smith Skin: Denies: rash Hematologic: Denies: bleeding Musculoskeletal: Denies: pain Allergies: Coded Allergies: No Known Allergies (Unverified , 02/05/13) Objective Vital Signs Last 24 Hour Vital Signs Date Time Temp Pulse Resp B/P (MAP) Pulse Ox O2 Delivery O2 Flow Rate FiO2 03/12/19 09:25 87 149/69 03/12/19 08:00 97.9 87 19 149/69 (95) 99 03/12/19 08:00 T-piece T-piece 03/12/19 07:51 92 03/12/19 07:31 84 20 100 T-Piece 6.0 28 03/12/19 07:17 86 20 100 T-Piece 6.0 03/12/19 07:15 100 T-Piece 6.0 03/12/19 06:23 117/59 03/12/19 06:23 117/59 03/12/19 04:00 98.2 82 20 117/59 (78) 99 03/12/19 03:55 T-piece T-piece 03/12/19 03:49 80 03/12/19 00:44 78 18 100 T-Piece 6.0 03/12/19 00:37 71 16 100 T-Piece 6.0 03/12/19 00:36 100 T-Piece 6.0 03/12/19 00:00 98.4 81 22 145/64 (91) 100 03/12/19 00:00 T-piece T-piece 03/11/19 23:25 74 03/11/19 21:26 137/64 03/11/19 21:26 137/64 03/11/19 20:00 T-piece T-piece 03/11/19 20:00 98.2 88 20 137/64 (88) 100 03/11/19 19:25 71 18 99 T-Piece 6.0 03/11/19 19:24 91 03/11/19 19:15 68 16 99 T-Piece 6.0 03/11/19 19:13 99 T-Piece 6.0 03/11/19 16:00 85 03/11/19 16:00 99.4 82 24 121/62 (81) 100 03/11/19 16:00 T-piece T-piece 03/11/19 14:02 134/65 03/11/19 14:01 134/65 03/11/19 13:12 74 18 100 T-Piece 6.0 03/11/19 12:51 99 T-Piece 6.0 03/11/19 12:51 62 16 99 T-Piece 6.0 26 Height (Feet): 6 Height (Inches): 0.00 Weight (Pounds): 223 General Appearance: no acute distress HEENT: normocephalic, atraumatic, anicteric Respiratory/Chest: crackles/rales, rhonchi - bilaterally, other - mostly clear bilateral Cardiovascular: normal rate, regular rhythm, no gallop/murmur, no JVD Abdomen: normal bowel sounds, soft, non tender, no organomegaly, non distended Genitourinary: other - + smith - urine clear Extremities: no cyanosis Skin: no rash 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 Enteric tube courses past the diaphragm and out of the field of view. Lungs/pleura: Slightly decreased but persistent patchy consolidations in the right lung. Slightly decreased left perihilar opacities/consolidations. Possible small bilateral pleural effusions. Heart/mediastinum: Stable mild enlargement of the cardiomediastinal silhouette. Soft tissues: Unremarkable. Bones: No acute fracture. Degenerative changes of the visualized right acromioclavicular joint. Degenerative changes of the spine. Upper abdomen: Normal. 02/11/19 - chest x-ray - IMPRESSION: Slightly decreased but persistent patchy consolidations in the right lung. Slightly decreased left perihilar opacities. Findings may IMPRESSION: 1. No significant change in the interstitial and alveolar opacities in bilateral lungs. 2. Possible small bilateral pleural effusions, unchanged. represent infectious/inflammatory process and/or pulmonary edema. Possible small bilateral pleural effusions. 02/16/19 - chest x-ray - Impression: Worsening of aeration with increasing interstitial and bilateral predominantly perihilar airspace disease. Findings likely related to worsening CHF/pulmonary edema. Superimposed pneumonia to be excluded clinically. Follow-up recommended. Chest x-ray - 02/18/19 - COMPARISON: Chest radiograph on 02/16/2019 FINDINGS: Hardware: Endotracheal tube terminates in the region of the mid thoracic trachea. Enteric tube courses past the diaphragm and out of the field of view. Lungs/pleura: Slightly decreased but persistent hazy and interstitial opacities. Persistent small left pleural effusion. Heart/mediastinum: Stable mild enlargement of the cardiomediastinal silhouette. Soft tissues: Unremarkable. Bones: No acute fracture. Upper abdomen: Normal. IMPRESSION: Slightly decreased but persistent changes suggesting pulmonary edema. Component of infectious/inflammatory process is not excluded. Persistent small left pleural effusion. Chest x-ray - 02/20/19 - Procedure: XRAY Chest 1v Indication: Dyspnea Comparison: Earlier same day A single view chest radiograph was obtained. Findings: Intubation noted. The endotracheal tube is in good position about 3 cm above the christal. Cardiomegaly again noted. Moderate pulmonary vascular congestion demonstrated. IMPRESSION: Endotracheal tube in good position. CHF Chest x-ray - - FINDINGS: The tip of the endotracheal tube is appropriately positioned, projecting between the clavicular heads. The sidehole of the enteric tube projects within the stomach. Extensive bilateral consolidation is again noted. Favor multilobar pneumonia. Heart size is borderline, but likely exaggerated by portable technique. No pneumothorax. Bony degenerative changes. IMPRESSION: Extensive airspace consolidation, similar to prior. Favor multilobar pneumonia. Appropriately positioned tubes. Chest x-ray - 02/24/19 - IMPRESSION: No significant interval change compared to the prior chest x-ray. Cardiomegaly with diffuse interstitial and alveolar opacities, which may represent pulmonary edema versus pneumonia. Chest x-ray - 02/26/19 - IMPRESSION: No significant interval change compared to the prior chest x-ray. Cardiomegaly with diffuse interstitial and alveolar opacities, which may represent pulmonary edema versus pneumonia. Chest x-ray - 03/03/19 - Comparison: 02/26/2019 A single view chest radiograph was obtained. Findings: Central hilar edema with cephalization of pulmonary vessels and interstitial opacities likely due to CHF demonstrated. There is a probable left pleural effusion. NG tube and tracheostomy noted in good position. IMPRESSION: Status post tracheostomy. No pneumothorax Pulmonary edema. Chest x-ray - 03/07/19 - A single view chest radiograph was obtained. Findings: There is enlargement of the cardiac silhouette with pulmonary vascular redistribution and prominence, hazy vessel margins and the suggestion of interstitial edema consistent with CHF. Tracheostomy noted. PICC line is in good position unchanged. IMPRESSION: CHF unchanged Microbiology Date/Time Source Procedure Growth Status 03/03/19 12:40 Blood Blood Culture - Final NO GROWTH AFTER 5 DAYS Complete 03/01/19 20:00 Sputum Induced Gram Stain - Final Complete 03/01/19 20:00 Sputum Induced Sputum Culture - Final NORMAL UPPER RESPIRATORY ADRIANA AT 48 ... Complete 03/03/19 18:00 Indwelling Cath Urine Culture - Final NO GROWTH AFTER 48 HOURS Complete 02/06/19 17:10 Rectal Mucosa - Final NO CARBAPENEM-RESISTANT ENTEROBACTERI... Complete Laboratory Tests Test 03/12/19 06:57 White Blood Count 3.8 K/UL (4.8-10.8) L Red Blood Count 3.10 M/UL (4.70-6.10) L Hemoglobin 8.9 G/DL (14.2-18.0) L Hematocrit 26.8 % (42.0-52.0) L Mean Corpuscular Volume 86 FL (80-99) Mean Corpuscular Hemoglobin 28.6 PG (27.0-31.0) Mean Corpuscular Hemoglobin Concent 33.2 G/DL (32.0-36.0) Red Cell Distribution Width 15.8 % (11.6-14.8) H Platelet Count 190 K/UL (150-450) Mean Platelet Volume 5.5 FL (6.5-10.1) L Neutrophils (%) (Auto) 48.8 % (45.0-75.0) Lymphocytes (%) (Auto) 34.5 % (20.0-45.0) Monocytes (%) (Auto) 14.1 % (1.0-10.0) H Eosinophils (%) (Auto) 2.0 % (0.0-3.0) Basophils (%) (Auto) 0.7 % (0.0-2.0) Sodium Level 130 MMOL/L (136-145) L Potassium Level 3.8 MMOL/L (3.5-5.1) Chloride Level 102 MMOL/L (98-107) Carbon Dioxide Level 28 MMOL/L (21-32) Anion Gap 0 mmol/L (5-15) L Blood Urea Nitrogen 29 mg/dL (7-18) H Creatinine 1.9 MG/DL (0.55-1.30) H Estimat Glomerular Filtration Rate 36.5 mL/min (>60) Glucose Level 172 MG/DL (74-106) H Calcium Level 8.1 MG/DL (8.5-10.1) L Vancomycin Level Trough 21.4 ug/mL (5.0-12.0) H Current Medications Medications (Trade) Dose Ordered Sig/Marquis Route PRN Reason Start Time Stop Time Status Last Admin Dose Admin Acetaminophen/ Butalbital/ Caffeine (Fioricet) 1 tab Q8H PRN ORAL For Headache 03/09/19 15:42 04/08/19 15:41 Albuterol/ Ipratropium (Albuterol/ Ipratropium) 3 ml Q6HRT HHN 03/09/19 07:00 03/13/19 19:14 03/12/19 07:21 Amlodipine Besylate (Norvasc) 10 mg DAILY NG 03/09/19 09:00 03/14/19 15:59 03/12/19 09:25 Artificial Tears (Lacri-Lube) 1 applic AC+HS BOTH EYES 03/09/19 11:30 03/20/19 06:29 03/12/19 06:26 Chlorhexidine Gluconate (Jessy-Hex 2%) 1 applic DAILY@2000 TOPIC 03/09/19 20:00 03/27/19 19:59 03/11/19 20:26 Clonidine HCl (Catapres tab) 0.2 mg EVERY 8 HOURS NG 03/09/19 14:00 03/19/19 13:59 03/12/19 06:23 Dextrose (Dextrose 50%) 25 ml Q30M PRN IV Hypoglycemia 03/09/19 07:15 03/31/19 07:14 Dextrose (Dextrose 50%) 50 ml Q30M PRN IV Hypoglycemia 03/09/19 07:15 03/31/19 07:14 Fluconazole/ Sodium Chloride 100 ml @ 100 mls/hr Q24H IV 03/09/19 18:00 03/15/19 17:59 03/11/19 18:25 Heparin Sodium (Porcine) (Heparin 5000 units/ml) 5,000 units EVERY 12 HOURS SUBQ 03/09/19 09:00 04/05/19 20:59 03/12/19 09:32 Hydralazine HCl (Apresoline) 10 mg Q4H PRN IV bp over 165 syst 03/09/19 08:00 03/19/19 07:59 Hydralazine HCl (Apresoline) 50 mg Q8HR NG 03/09/19 14:00 03/21/19 21:59 03/12/19 06:23 Insulin Aspart (NovoLOG) EVERY 6 HOURS SUBQ 03/09/19 12:00 03/28/19 11:59 03/12/19 06:24 Insulin Detemir (Levemir) 10 units Q12HR SUBQ 03/09/19 09:00 04/01/19 20:59 03/11/19 20:34 Lorazepam (Ativan 2mg/ml 1ml) 2 mg Q2H PRN IV For Anxiety 03/09/19 07:45 03/13/19 19:44 03/10/19 14:40 Meropenem 1 gm/ Sodium Chloride 55 ml @ 110 mls/hr Q12HR IVPB 03/10/19 21:00 03/13/19 08:59 03/12/19 09:24 Metoclopramide HCl (Reglan) 5 mg Q8H IVP 03/09/19 09:00 03/28/19 08:59 03/12/19 09:25 Midazolam HCl (Versed 2mg/2ml vial) 1 mg Q2H PRN IVP Agitation 03/09/19 08:00 03/15/19 07:59 Pantoprazole (Protonix) 40 mg DAILY IVP 03/09/19 09:00 03/24/19 20:59 03/12/19 09:26 Patient Own Medication (Patient's Own Med) 1 ea BID ORAL 03/09/19 09:00 04/08/19 08:59 03/12/19 09:33 Patient Own Medication (Patient's Own Med) 1 ea BID ORAL 03/12/19 09:00 04/11/19 08:59 03/12/19 09:33 Patient Own Medication (Patient's Own Med) 1 ea DAILY ORAL 03/09/19 09:00 04/08/19 08:59 03/12/19 09:33 Quetiapine Fumarate (SEROquel) 25 mg Q12HR ORAL 03/09/19 09:00 04/07/19 20:59 03/12/19 09:25 Trimethoprim/ Sulfamethoxazole (Bactrim-DS) 1 tab DAILY ORAL 03/11/19 12:00 03/18/19 11:59 03/12/19 09:26 Vancomycin HCl (Vanco rx to dose) 1 ea DAILY PRN MISC Per rx protocol 03/09/19 09:00 04/02/19 10:59 Russ Tony MD Mar 12, 2019 12:31
--- NOTE | 2019-03-12 12:34 | Nephrology Progress Note ---
Assessment/Plan Problem List: (1) ISH (acute kidney injury) Assessment: Cr lowering (2) HIV (human immunodeficiency virus infection) (3) NSTEMI (non-ST elevated myocardial infarction) Assessment: troponin decreasing (4) Hypoxia (5) Anemia (6) Diabetes Assessment Acute Renal failure- Cr leveling- Urine out put is good Acidosis improved Acute respiratory failure- Require intubation and Mechanical Ventilation- Anemia- Elevated troponin / AZ HTN DM HIV Antibody + Plan Trach 03/02 mag and K and Phos supplement as needed adjust BP meds on feeding IV protonix transfusion as needed 3% Saline BP med adjustment UA and urine studies Avoid Nephrotoxics as possible Monitor renal parameters keep BP and BS in check Per orders No HD at this time Kidney RADHA noted adjust BP meds add Isordil Subjective ROS Limited/Unobtainable: Yes Objective Objective Last 24 Hour Vital Signs Date Time Temp Pulse Resp B/P (MAP) Pulse Ox O2 Delivery O2 Flow Rate FiO2 03/12/19 09:25 87 149/69 03/12/19 08:00 97.9 87 19 149/69 (95) 99 03/12/19 08:00 T-piece T-piece 03/12/19 07:51 92 03/12/19 07:31 84 20 100 T-Piece 6.0 03/12/19 07:17 86 20 100 T-Piece 6.0 03/12/19 07:15 100 T-Piece 6.0 03/12/19 06:23 117/59 03/12/19 06:23 117/59 03/12/19 04:00 98.2 82 20 117/59 (78) 99 03/12/19 03:55 T-piece T-piece 03/12/19 03:49 80 03/12/19 00:44 78 18 100 T-Piece 6.0 03/12/19 00:37 71 16 100 T-Piece 6.0 03/12/19 00:36 100 T-Piece 6.0 03/12/19 00:00 98.4 81 22 145/64 (91) 100 03/12/19 00:00 T-piece T-piece 03/11/19 23:25 74 03/11/19 21:26 137/64 03/11/19 21:26 137/64 03/11/19 20:00 T-piece T-piece 03/11/19 20:00 98.2 88 20 137/64 (88) 100 03/11/19 19:25 71 18 99 T-Piece 6.0 28 03/11/19 19:24 91 03/11/19 19:15 68 16 99 T-Piece 6.0 28 03/11/19 19:13 99 T-Piece 6.0 28 03/11/19 16:00 85 03/11/19 16:00 99.4 82 24 121/62 (81) 100 03/11/19 16:00 T-piece T-piece 03/11/19 14:02 134/65 03/11/19 14:01 134/65 03/11/19 13:12 74 18 100 T-Piece 6.0 03/11/19 12:51 99 T-Piece 6.0 03/11/19 12:51 62 16 99 T-Piece 6.0 26 Intake and Output 03/11/19 03/12/19 19:00 07:00 Intake Total 1584.664 ml 731 ml Output Total 600 ml 1100 ml Balance 984.664 ml -369 ml Free Water 300 ml 60 ml IV Total 811.664 ml 155 ml Tube Feeding 473 ml 516 ml Output Urine Total 500 ml 1100 ml Stool Total 100 ml # Voids 1 Laboratory Tests 03/12/19 06:57: White Blood Count 3.8L, Red Blood Count 3.10L, Hemoglobin 8.9L, Hematocrit 26.8L , Mean Corpuscular Volume 86, Mean Corpuscular Hemoglobin 28.6, Mean Corpuscular Hemoglobin Concent 33.2, Red Cell Distribution Width 15.8H, Platelet Count 190, Mean Platelet Volume 5.5L, Neutrophils (%) (Auto) 48.8, Lymphocytes (%) (Auto) 34.5, Monocytes (%) (Auto) 14.1H, Eosinophils (%) (Auto) 2.0, Basophils (%) (Auto) 0.7, Sodium Level 130L, Potassium Level 3.8, Chloride Level 102, Carbon Dioxide Level 28, Anion Gap 0L, Blood Urea Nitrogen 29H, Creatinine 1.9H, Estimat Glomerular Filtration Rate 36.5, Glucose Level 172H, Calcium Level 8.1L, Vancomycin Level Trough 21.4H Height (Feet): 6 Height (Inches): 0.00 Weight (Pounds): 223 General Appearance: no apparent distress Neck: other - trach Respiratory/Chest: decreased breath sounds Abdomen: distended Objective no change Mike Mcdonald MD Mar 12, 2019 12:34
--- NOTE | 2019-03-12 13:10 | NUR ---
MARKET RISK SPECIALISTAGRICULTURAL CHEMIST SI; RESP FAILURE S/P TRACH/PEG T. 97.9 HR 87 RR 20 B/P 149/69 T-PIECE FIO2 30% WBC 3.8 NA 130 BUN 29 CR 1.9 IS: BACTRIM PO HEPARIN SUBC SEROQUEL PO DCP STEP DOWN STATUS
--- NOTE | 2019-03-12 13:27 | Surgery Progress Note ---
Surgery Progress Note Subjective Procedure Performed tracheostomy Additional Comments overall improving more alert and responsive Objective Last 24 Hour Vital Signs Date Time Temp Pulse Resp B/P (MAP) Pulse Ox O2 Delivery O2 Flow Rate FiO2 03/12/19 12:51 91 20 100 T-Piece 6.0 03/12/19 12:40 91 20 100 T-Piece 6.0 03/12/19 12:40 100 T-Piece 6.0 03/12/19 12:00 T-piece T-piece 03/12/19 12:00 98.0 92 19 123/63 (83) 100 03/12/19 11:44 116 03/12/19 09:25 87 149/69 03/12/19 08:00 97.9 87 19 149/69 (95) 99 03/12/19 08:00 T-piece T-piece 03/12/19 07:51 92 03/12/19 07:31 84 20 100 T-Piece 6.0 03/12/19 07:17 86 20 100 T-Piece 6.0 03/12/19 07:15 100 T-Piece 6.0 03/12/19 06:23 117/59 03/12/19 06:23 117/59 03/12/19 04:00 98.2 82 20 117/59 (78) 99 03/12/19 03:55 T-piece T-piece 03/12/19 03:49 80 03/12/19 00:44 78 18 100 T-Piece 6.0 03/12/19 00:37 71 16 100 T-Piece 6.0 03/12/19 00:36 100 T-Piece 6.0 03/12/19 00:00 98.4 81 22 145/64 (91) 100 03/12/19 00:00 T-piece T-piece 03/11/19 23:25 74 03/11/19 21:26 137/64 03/11/19 21:26 137/64 03/11/19 20:00 T-piece T-piece 03/11/19 20:00 98.2 88 20 137/64 (88) 100 03/11/19 19:25 71 18 99 T-Piece 6.0 03/11/19 19:24 91 03/11/19 19:15 68 16 99 T-Piece 6.0 03/11/19 19:13 99 T-Piece 6.0 28 03/11/19 16:00 85 03/11/19 16:00 99.4 82 24 121/62 (81) 100 03/11/19 16:00 T-piece T-piece 03/11/19 14:02 134/65 03/11/19 14:01 134/65 I&O Intake and Output 03/11/19 03/12/19 19:00 07:00 Intake Total 1584.664 ml 731 ml Output Total 600 ml 1100 ml Balance 984.664 ml -369 ml Free Water 300 ml 60 ml IV Total 811.664 ml 155 ml Tube Feeding 473 ml 516 ml Output Urine Total 500 ml 1100 ml Stool Total 100 ml # Voids 1 Dressing: dry Wound: clean Cardiovascular: RSR Respiratory: clear Abdomen: soft, present bowel sounds, non-distended Extremities: no tenderness, no cyanosis Laboratory Tests Test 03/12/19 06:57 White Blood Count 3.8 K/UL (4.8-10.8) L Red Blood Count 3.10 M/UL (4.70-6.10) L Hemoglobin 8.9 G/DL (14.2-18.0) L Hematocrit 26.8 % (42.0-52.0) L Mean Corpuscular Volume 86 FL (80-99) Mean Corpuscular Hemoglobin 28.6 PG (27.0-31.0) Mean Corpuscular Hemoglobin Concent 33.2 G/DL (32.0-36.0) Red Cell Distribution Width 15.8 % (11.6-14.8) H Platelet Count 190 K/UL (150-450) Mean Platelet Volume 5.5 FL (6.5-10.1) L Neutrophils (%) (Auto) 48.8 % (45.0-75.0) Lymphocytes (%) (Auto) 34.5 % (20.0-45.0) Monocytes (%) (Auto) 14.1 % (1.0-10.0) H Eosinophils (%) (Auto) 2.0 % (0.0-3.0) Basophils (%) (Auto) 0.7 % (0.0-2.0) Sodium Level 130 MMOL/L (136-145) L Potassium Level 3.8 MMOL/L (3.5-5.1) Chloride Level 102 MMOL/L (98-107) Carbon Dioxide Level 28 MMOL/L (21-32) Anion Gap 0 mmol/L (5-15) L Blood Urea Nitrogen 29 mg/dL (7-18) H Creatinine 1.9 MG/DL (0.55-1.30) H Estimat Glomerular Filtration Rate 36.5 mL/min (>60) Glucose Level 172 MG/DL (74-106) H Calcium Level 8.1 MG/DL (8.5-10.1) L Vancomycin Level Trough 21.4 ug/mL (5.0-12.0) H Plan Problems: (1) Hypoxia Assessment & Plan: Extensive bilateral upper lobe infiltrates likely inflammatory/infectious. Correlate clinically. Tuberculosis is not excludable. Bilateral pleural effusions. Endotracheal tube and nasogastric tube in good position Atherosclerotic vascular disease (2) Respiratory distress Assessment & Plan: off vent s/p trach improving (3) Sepsis Assessment & Plan: Sepsis with tachycardia, leukocytosis - resolved, abnormal labs, respiratory distress on vent Cont IV abx abnormal lft's improved US noted will cont to follow with recs trend labs okay for diet Rx as written Moiz Costa Mar 12, 2019 13:27
[2019-03-12] MEDS ORDERED: NaCl 3% 500ml 250 ML IV ONE (14:00)
--- NOTE | 2019-03-12 14:10 | NUR ---
NURSE NOTES: Stefan/ and Alejandra/ at bedside. They're explaining the Passy shellie valve and the change of trach size. Patient is cooperative with care.
--- NOTE | 2019-03-12 14:15 | NUR ---
RESPIRATORY NOTE: order to change trach to Shiley 6. changed trach with speech therapist at bedside. little no bleeding occurred with no resp distress or adverse reaction. PMV also ordered for pt, pt did well again with speech therapist at bedside. pt lasted about 20 mins on speaking valve.
--- NOTE | 2019-03-12 14:36 | NUR ---
ST NOTE: THIS 58 Y.O. M. WAS REFERRED FOR A PASSY ANALI SPEAKING VALVE BY DR GUIDRY (03/10/19). ADMITTED 02/06/19 AND DIAGNOSED WITH CP, SEPSIS MULTILOBAR PNA, HYPOXEMIC RESPIRATORY FAILURE, TRACH PLACED 03/02/19 ON VENT 03/02-03/07/19 AND HAD GT PLACED 03/05/19 HE HAS A H/O STROKE (? DATE) AND HIV IN THE 80s, DIABETES, ANXIETY, ENDOCRINE D/O, ABSCESS R CHEEK IN PAST, HTN, ACS. THE PATIENT HAS BEEN COMMUNICATING WITH MOUTHING AND ALPHABET/WORD BOARD. RTS [place] AND GIO CHANGED HIS 8 CUFFED SHILEY TRACH TO A 6 CUFFED SHILEY TRACH. THE VALVE WAS PLACE DIRECTLY ON HIS TRACH. OROMOTOR SKILLS ARE GROSSLY FUNCTIONAL FOR INTELLIGIBLE SPEECH. INITIAL IMPRESSIONS APHONIA W/O SPEAKING VALVE AND WHEN TRACH TUBE NOT COVERED. WITH SPEAKING VALVE ON, TOLERATED 20 MINUTES AND THEN HE WANTED TO REST SINCE HE FELT A LITTLE SOB BUT GOOD SATURATION 100 02 SATS ON 6 LITERS OF 02 WITH TRACH COLLAR. ABLE TO EXPRESS SOME SHORT PHRASES BUT NEEDED MAX CUES TO TAKE A BREATH AFTER A FEW WORDS. VOICE WAS AUDIBLE MOST OF THE TIME BUT IT SOUNDED SLIGHTLY HIGHER IN PITCH AND "LIKE A COMPUTER VOICE" PER PATIENT. HE HAD SOME COUGHING EPISODES BUT VALVE DID NOT COME OFF. CLEANED VALVE AFTER USE. TRAINED PATIENT TO COVER TRACH WITH GLOVED RIGHT THUMB AND LEFT INDEX FINGER. NEEDED MAX CUES TO RECALL TO TAKE A BREATH FIRST THEN COVER TRACH THEN SPEAK. NEEDED MAX CUES TO FIND LOCATION OF TRACH TUBE. EDUCATED/TRAINED PT/RT/RN (LYNDON) IN USING AND CLEANING SPEAKING VALVE. RECOMMENDATIONS: WILL F/UP TOMORROW WITH GOALS NOTED IN SPEECH REPORT PLAN OF CARE. D/W STAFF, PATIENT, AND MD PATIENT ENCOURAGED TO PRACTICE SPEAKING WITH ST, RT, AND NETWORK CONTRACTOR MUCH TOLERATED (USING VALVE OR JUST COVERING TRACH TUBE WITH GLOVED FINGER AND CUES.
[2019-03-12 16:00] VITALS: BP 121/60
--- NOTE | 2019-03-12 16:50 | NUR ---
*-* DISCHARGE PLANNING *-* PATIENT HAS BEEN REFERRED TO: [facility] P:[phone] F:[phone]
--- NOTE | 2019-03-12 19:05 | NUR ---
HAND-OFF: Report given to TESSA Finney.
--- NOTE | 2019-03-12 19:06 | NUR ---
NURSE NOTES: Received patient from Sadie RN. Patient is awake and alert with no signs of acute distress. Patient A&O X3, pt still forgetful. Pt is on a trach collar, shily size 6 trach and PMV is at bedside. Pt is running Glucerna 1.5 at 43ml/hr, Simon catheter, and rectal tube are all in place. No new skin issues and patient is tolerating tx well. Bed at its lowest position, call light in reach, and X3 bed rails are up. Will continue to monitor.
--- NOTE | 2019-03-12 19:42 | Cardiac Electrophysiology PN ---
Assessment/Plan Assessment/Plan 1. Non-ST elevation myocardial infarction with peak troponin of more than 10, down to 3.[address]-T wave abnormalities. Continue Lipitor, Imdur and metoprolol Will consider Cardiac catheterization 2. Hypertension. Metoprolol 100 bid, Isordil 20 q6 , Norvasc 10 daily, hydralazine 50 q 8 hr and Clonidine 0.2 q 8hrs 3. Respiratory failure due to Multilobar Pneumonia. Extubated 02/19/19. Reintubated 02/20/19 S/P Tracheostomy 03/02/19. Off the vent now 4. Hyperlipidemia. On Lipitor. 5. Human immunodeficiency virus. On anti-retroviral therapy with undetectable viral load. 6. ARF Cr 3 Now Cr 1.3 7. Bleeding from ETT and NG tube. S/P PRBC. Off Aspirin and Lovenox No further bleeding 8. Dysphagia. S/P PEG 03/05/19 CANDELARIO RN Subjective Subjective In SDU off the vent . Tracheostomy off T tube or Vent. Alert in NAD. Amazing recovery! Objective Last 24 Hour Vital Signs Date Time Temp Pulse Resp B/P (MAP) Pulse Ox O2 Delivery O2 Flow Rate FiO2 03/12/19 16:00 97.5 98 19 121/60 (80) 99 03/12/19 16:00 Trach Collar T-piece 03/12/19 15:42 89 03/12/19 14:59 123/63 03/12/19 14:59 123/63 03/12/19 12:51 91 20 100 T-Piece 6.0 03/12/19 12:40 91 20 100 T-Piece 6.0 03/12/19 12:40 100 T-Piece 6.0 03/12/19 12:00 T-piece T-piece 03/12/19 12:00 98.0 92 19 123/63 (83) 100 03/12/19 11:44 116 03/12/19 09:25 87 149/69 03/12/19 08:00 97.9 87 19 149/69 (95) 99 03/12/19 08:00 T-piece T-piece 03/12/19 07:51 92 03/12/19 07:31 84 20 100 T-Piece 6.0 03/12/19 07:17 86 20 100 T-Piece 6.0 03/12/19 07:15 100 T-Piece 6.0 03/12/19 06:23 117/59 03/12/19 06:23 117/59 03/12/19 04:00 98.2 82 20 117/59 (78) 99 03/12/19 03:55 T-piece T-piece 03/12/19 03:49 80 03/12/19 00:44 78 18 100 T-Piece 6.0 03/12/19 00:37 71 16 100 T-Piece 6.0 03/12/19 00:36 100 T-Piece 6.0 03/12/19 00:00 98.4 81 22 145/64 (91) 100 03/12/19 00:00 T-piece T-piece 03/11/19 23:25 74 03/11/19 21:26 137/64 03/11/19 21:26 137/64 03/11/19 20:00 T-piece T-piece 03/11/19 20:00 98.2 88 20 137/64 (88) 100 Intake and Output 03/11/19 03/12/19 18:59 06:59 Intake Total 1580.720 ml 734.944 ml Output Total 600 ml 1100 ml Balance 980.720 ml -365.056 ml Free Water 300 ml 60 ml IV Total 764.720 ml 201.944 ml Tube Feeding 516 ml 473 ml Output Urine Total 500 ml 1100 ml Stool Total 100 ml # Voids 1 Laboratory Tests Test 03/12/19 06:57 White Blood Count 3.8 K/UL (4.8-10.8) L Red Blood Count 3.10 M/UL (4.70-6.10) L Hemoglobin 8.9 G/DL (14.2-18.0) L Hematocrit 26.8 % (42.0-52.0) L Mean Corpuscular Volume 86 FL (80-99) Mean Corpuscular Hemoglobin 28.6 PG (27.0-31.0) Mean Corpuscular Hemoglobin Concent 33.2 G/DL (32.0-36.0) Red Cell Distribution Width 15.8 % (11.6-14.8) H Platelet Count 190 K/UL (150-450) Mean Platelet Volume 5.5 FL (6.5-10.1) L Neutrophils (%) (Auto) 48.8 % (45.0-75.0) Lymphocytes (%) (Auto) 34.5 % (20.0-45.0) Monocytes (%) (Auto) 14.1 % (1.0-10.0) H Eosinophils (%) (Auto) 2.0 % (0.0-3.0) Basophils (%) (Auto) 0.7 % (0.0-2.0) Sodium Level 130 MMOL/L (136-145) L Potassium Level 3.8 MMOL/L (3.5-5.1) Chloride Level 102 MMOL/L (98-107) Carbon Dioxide Level 28 MMOL/L (21-32) Anion Gap 0 mmol/L (5-15) L Blood Urea Nitrogen 29 mg/dL (7-18) H Creatinine 1.9 MG/DL (0.55-1.30) H Estimat Glomerular Filtration Rate 36.5 mL/min (>60) Glucose Level 172 MG/DL (74-106) H Calcium Level 8.1 MG/DL (8.5-10.1) L Vancomycin Level Trough 21.4 ug/mL (5.0-12.0) H Objective HEAD AND NECK: No JVD. S/P tracheostomy LUNGS: Coarse rhonchi. CARDIOVASCULAR: Regular S1 and S2 with no gallop or murmur. ABDOMEN: Soft.PEG in place EXTREMITIES: 1 plus pitting edema. Murray Francois MD Mar 12, 2019 19:42
[2019-03-12] MEDS: Dyna-Hex 2% Top Sol 2oz TOPIC SCH (19:45)
[2019-03-12 20:00] VITALS: BP 128/65
--- NOTE | 2019-03-12 20:48 | Cardiology Report ---
APPROVED REPORT EKG Measurement Heart [id number] OR [id number] Normal sinus rhythm Nonspecific T wave abnormality Abnormal ECG
--- NOTE | 2019-03-12 22:28 | NUR ---
NURSE NOTES: Patient has visitor, Ernesto Leija, at bed side and is cooperative with tx. Will continue to monitor.
[2019-03-13] VITALS: BP 130/59
[2019-03-13] MEDS: Metoclopramide 10mg/2ml Inj IVP SCH (00:50)
[2019-03-13] MEDS: Albuterol/Ipratropium 3ml neb HHN SCH ×3 (01:24→13:14)
[2019-03-13 04:00] VITALS: BP 133/64
[2019-03-13] MEDS: cloNIDine 0.2mg Tab NG SCH ×2 (06:46→14:40)
[2019-03-13] MEDS: HydrALAZINE 50mg tab NG SCH ×2 (06:46→14:41)
[2019-03-13] MEDS: Lacri-Lube Opth Oint 3.5gm BOTH EYES SCH ×2 (06:46→11:59)
[2019-03-13] MEDS: NovoLOG Insulin Flexpen SUBQ SCH ×2 (06:49→13:11)
--- NOTE | 2019-03-13 07:26 | General Progress Note ---
Assessment/Plan Problem List: (1) ISH (acute kidney injury) ICD Codes: N17.9 - Acute kidney failure, unspecified SNOMED: 48563705 (2) Uncontrolled type 2 diabetes mellitus with chronic kidney disease ICD Codes: E11.22 - Type 2 diabetes mellitus with diabetic chronic kidney disease; E11.65 - Type 2 diabetes mellitus with hyperglycemia SNOMED: 13126627, 827987489, 343039691 (3) HIV disease ICD Codes: B20 - Human immunodeficiency virus [HIV] disease SNOMED: 35765170 (4) Respiratory distress ICD Codes: R06.03 - Acute respiratory distress SNOMED: 373146997 Status: unchanged Assessment/Plan: - continue Novolog sliding scale every 6 hours - increase Levemir to 14 units bid - swallow eval pending Subjective Allergies: Coded Allergies: No Known Allergies (Unverified , 02/05/13) All Systems: reviewed and negative except above Subjective events noted on trach collar awake Item Value Date Time Bedside Blood Glucose 228 mg/dl H 03/13/19 0649 Bedside Blood Glucose 209 mg/dl H 03/12/19 2356 Bedside Blood Glucose 202 mg/dl H 03/12/19 2118 Bedside Blood Glucose 220 mg/dl H 03/12/19 1804 Bedside Blood Glucose 240 mg/dl H 03/12/19 1256 Objective Last 24 Hour Vital Signs Date Time Temp Pulse Resp B/P (MAP) Pulse Ox O2 Delivery O2 Flow Rate FiO2 03/13/19 07:24 97 T-Piece 6.0 03/13/19 06:46 133/64 03/13/19 06:46 133/64 03/13/19 04:00 98.0 95 24 133/64 (87) 96 03/13/19 03:59 Trach Collar 7.0 Trach Collar 7.0 03/13/19 03:29 90 03/13/19 01:37 85 20 100 T-Piece 6.0 03/13/19 01:28 100 T-Piece 6.0 03/13/19 01:27 80 20 100 T-Piece 6.0 03/13/19 00:00 Trach Collar 7.0 Trach Collar 7.0 03/13/19 00:00 98.2 77 18 130/59 (82) 100 03/12/19 23:35 79 03/12/19 21:19 128/65 03/12/19 21:19 128/65 03/12/19 20:13 Trach Collar Trach Collar 03/12/19 20:00 99.6 86 24 128/65 (86) 99 03/12/19 19:58 95 03/12/19 19:50 94 20 100 T-Piece 6.0 28 03/12/19 19:42 100 T-Piece 6.0 28 03/12/19 19:40 92 20 100 T-Piece 6.0 28 03/12/19 16:00 97.5 98 19 121/60 (80) 99 03/12/19 16:00 Trach Collar T-piece 03/12/19 15:42 89 03/12/19 14:59 123/63 03/12/19 14:59 123/63 03/12/19 12:51 91 20 100 T-Piece 6.0 28 03/12/19 12:40 91 20 100 T-Piece 6.0 03/12/19 12:40 100 T-Piece 6.0 28 03/12/19 12:00 T-piece T-piece 03/12/19 12:00 98.0 92 19 123/63 (83) 100 03/12/19 11:44 116 03/12/19 09:25 87 149/69 03/12/19 08:00 97.9 87 19 149/69 (95) 99 03/12/19 08:00 T-piece T-piece 03/12/19 07:51 92 03/12/19 07:31 84 20 100 T-Piece 6.0 28 Intake and Output 03/12/19 03/13/19 19:00 07:00 Intake Total 756 ml 447 ml Output Total 1600 ml Balance -844 ml 447 ml Free Water 60 ml IV Total 120 ml Tube Feeding 516 ml 387 ml Other 120 ml Output Urine Total 1400 ml Stool Total 200 ml # Voids 1 Height (Feet): 6 Height (Inches): 0.00 Weight (Pounds): 218 General Appearance: no apparent distress Neck: normal alignment Cardiovascular: normal rate Respiratory/Chest: lungs clear Abdomen: normal bowel sounds Pelvis: normal external exam Objective Current Medications Medications (Trade) Dose Ordered Sig/Marquis Route PRN Reason Start Time Stop Time Status Last Admin Dose Admin Acetaminophen/ Butalbital/ Caffeine (Fioricet) 1 tab Q8H PRN ORAL For Headache 03/09/19 15:42 04/08/19 15:41 Albuterol/ Ipratropium (Albuterol/ Ipratropium) 3 ml Q6HRT HHN 03/09/19 07:00 03/13/19 19:14 03/13/19 01:24 Amlodipine Besylate (Norvasc) 10 mg DAILY NG 03/09/19 09:00 03/14/19 15:59 03/12/19 09:25 Artificial Tears (Lacri-Lube) 1 applic AC+HS BOTH EYES 03/09/19 11:30 03/20/19 06:29 03/13/19 06:46 Chlorhexidine Gluconate (Jessy-Hex 2%) 1 applic DAILY@1999 TOPIC 03/09/19 20:00 03/27/19 19:59 03/12/19 19:45 Clonidine HCl (Catapres tab) 0.2 mg EVERY 8 HOURS NG 03/09/19 14:00 03/19/19 13:59 03/13/19 06:46 Dextrose (Dextrose 50%) 25 ml Q30M PRN IV Hypoglycemia 03/09/19 07:15 03/31/19 07:14 Dextrose (Dextrose 50%) 50 ml Q30M PRN IV Hypoglycemia 03/09/19 07:15 03/31/19 07:14 Heparin Sodium (Porcine) (Heparin 5000 units/ml) 5,000 units EVERY 12 HOURS SUBQ 03/09/19 09:00 04/05/19 20:59 03/12/19 21:19 Hydralazine HCl (Apresoline) 10 mg Q4H PRN IV bp over 165 syst 03/09/19 08:00 03/19/19 07:59 Hydralazine HCl (Apresoline) 50 mg Q8HR NG 03/09/19 14:00 03/21/19 21:59 03/13/19 06:46 Insulin Aspart (NovoLOG) EVERY 6 HOURS SUBQ 03/09/19 12:00 03/28/19 11:59 03/13/19 06:49 Insulin Detemir (Levemir) 10 units Q12HR SUBQ 03/09/19 09:00 04/01/19 20:59 03/12/19 21:18 Lorazepam (Ativan 2mg/ml 1ml) 2 mg Q2H PRN IV For Anxiety 03/09/19 07:45 03/13/19 19:44 03/10/19 14:40 Metoclopramide HCl (Reglan) 5 mg Q8H IVP 03/09/19 09:00 03/28/19 08:59 03/13/19 00:50 Midazolam HCl (Versed 2mg/2ml vial) 1 mg Q2H PRN IVP Agitation 03/09/19 08:00 03/15/19 07:59 Pantoprazole (Protonix) 40 mg DAILY IVP 03/09/19 09:00 03/24/19 20:59 03/12/19 09:26 Patient Own Medication (Patient's Own Med) 1 ea BID ORAL 03/09/19 09:00 04/08/19 08:59 03/12/19 18:02 Patient Own Medication (Patient's Own Med) 1 ea BID ORAL 03/12/19 09:00 04/11/19 08:59 03/12/19 18:02 Patient Own Medication (Patient's Own Med) 1 ea DAILY ORAL 03/09/19 09:00 04/08/19 08:59 03/12/19 09:33 Quetiapine Fumarate (SEROquel) 25 mg Q12HR ORAL 03/09/19 09:00 04/07/19 20:59 03/12/19 21:19 Trimethoprim/ Sulfamethoxazole (Bactrim-DS) 1 tab DAILY ORAL 03/11/19 12:00 03/18/19 11:59 03/12/19 09:26 Carlito Nichols MD Mar 13, 2019 07:26
--- NOTE | 2019-03-13 07:30 | NUR ---
NURSE NOTES: Received pt from [facility] in stable condition with no cardiopulmonary distress noted. Pt is awake in bed, on trache collar Shiley 6 7L O2 SaO2 97% cuff balloon noted deflated, pt is able to speak - RT informed and present in the room. GT noted running Glucerna 1.5 at 43cc/hr. F/C noted draining yellow urine. Rectal tube noted. Skin alterations noted. Pt has a KATIE PICC. Bed is in lowest position with alarm on, side rails up x 2, call light within reach. Will continue to monitor pt.
[2019-03-13 08:00] VITALS: BP 133/61
--- NOTE | 2019-03-13 08:15 | GI Progress Note ---
Assessment/Plan Problems: (1) Anemia ICD Codes: D64.9 - Anemia, unspecified SNOMED: 537640784 (2) Anxiety ICD Codes: F41.9 - Anxiety disorder, unspecified SNOMED: 57275375 (3) Anemia ICD Codes: D64.9 - Anemia, unspecified SNOMED: 858465208 (4) Uncontrolled type 2 diabetes mellitus with chronic kidney disease ICD Codes: E11.22 - Type 2 diabetes mellitus with diabetic chronic kidney disease; E11.65 - Type 2 diabetes mellitus with hyperglycemia SNOMED: 46143945, 972700679, 385471324 Status: unchanged Status Narrative Discussed with Dr. Ricketts. Assessment/Plan 1. History of HIV. 2. Hypertension. 3. Vertigo. 4. History of headaches. 5. History of diabetes. 6. Respiratory failure 7. Dysphagia 8. ileus s/p PEG ST evaluation GTFs per RD GT site care daily/prn prn transfusions ppi electrolyte replacement follow labs The patient was seen and examined at bedside and all new and available data was reviewed in the patients chart. I agree with the above findings, impression and plan. (Patient seen earlier today. Signature stamp does not reflect patient encounter time.). - Kg Ricketts MD Subjective Subjective limited, has complained of hunger Objective Last 24 Hour Vital Signs Date Time Temp Pulse Resp B/P (MAP) Pulse Ox O2 Delivery O2 Flow Rate FiO2 03/13/19 07:42 91 20 98 T-Piece 6.0 03/13/19 07:24 93 20 97 T-Piece 6.0 03/13/19 07:24 97 T-Piece 6.0 03/13/19 06:46 133/64 03/13/19 06:46 133/64 03/13/19 04:00 98.0 95 24 133/64 (87) 96 03/13/19 03:59 Trach Collar 7.0 Trach Collar 7.0 03/13/19 03:29 90 03/13/19 01:37 85 20 100 T-Piece 6.0 03/13/19 01:28 100 T-Piece 6.0 03/13/19 01:27 80 20 100 T-Piece 6.0 03/13/19 00:00 Trach Collar 7.0 Trach Collar 7.0 03/13/19 00:00 98.2 77 18 130/59 (82) 100 03/12/19 23:35 79 03/12/19 21:19 128/65 03/12/19 21:19 128/65 03/12/19 20:13 Trach Collar Trach Collar 03/12/19 20:00 99.6 86 24 128/65 (86) 99 03/12/19 19:58 95 03/12/19 19:50 94 20 100 T-Piece 6.0 03/12/19 19:42 100 T-Piece 6.0 03/12/19 19:40 92 20 100 T-Piece 6.0 28 03/12/19 16:00 97.5 98 19 121/60 (80) 99 03/12/19 16:00 Trach Collar T-piece 03/12/19 15:42 89 03/12/19 14:59 123/63 03/12/19 14:59 123/63 03/12/19 12:51 91 20 100 T-Piece 6.0 03/12/19 12:40 91 20 100 T-Piece 6.0 03/12/19 12:40 100 T-Piece 6.0 03/12/19 12:00 T-piece T-piece 03/12/19 12:00 98.0 92 19 123/63 (83) 100 03/12/19 11:44 116 03/12/19 09:25 87 149/69 Intake and Output 03/12/19 03/13/19 19:00 07:00 Intake Total 756 ml 447 ml Output Total 1600 ml Balance -844 ml 447 ml Free Water 60 ml IV Total 120 ml Tube Feeding 516 ml 387 ml Other 120 ml Output Urine Total 1400 ml Stool Total 200 ml # Voids 1 Height (Feet): 6 Height (Inches): 0.00 Weight (Pounds): 218 General Appearance: WD/WN, no apparent distress, alert Cardiovascular: normal rate Respiratory/Chest: normal breath sounds, no respiratory distress Abdominal Exam: normal bowel sounds, non tender, soft, GT site - c/d/i Extremities: non-tender Hortencia Zheng CHIEF ARCHITECT Mar 13, 2019 08:15
--- NOTE | 2019-03-13 08:51 | General Progress Note ---
Assessment/Plan Status: unchanged Assessment/Plan: 58 y Male admitted to the hospital due to fever, shortness of breath and chest pain. # Multilobar pneumonia in patient with HIV - Broad sp atbx started. Continue Zosyn, Vancomycin, Azithromycin, TM-SMX ( now prophylactic and completed course for PCP/PJ pnuemonia ) - Fluconazole per ID - Droplet precaution removed. - Flu swab negative - Oxygen support, ventilatory support as not able to wean off ventilator due to agitation.-> patient noqw off ventilator and using PMV - ID consult appreciated. - T piece being tolerated and transferred to [facility] 03/09 - downsize trace collar per pulm-> now at [place] [id number] - f/u speech fo PMV # Hypoxemic respiratory failure- resolved - Critical care follow up. Unable to wean off the ventilator. Tracheostomy completed. - Due to pneumonia - Tolerating CPAP 03/06 - T piece now # Chest pain- resolved - EKG with bifascicular block RBB and LAFB, no ST changes. - Trend troponin x3 completed - ECHO completed with no WMA and preserved EF. Dr. Francois consulted. Consideration for outpatient cath vs possibly myocarditis due to underlying viral infection. No evidence of Takotsubo per TTE. NOT a candidate for angiogram at this time. - NGT prn - Pain control with morphine # HIV - Continue HARRT - VL is undetectable per patient report. T cell count > 400 - CD 4 count 191 # HTN - Resume home medication - Clonidine, Isordil. # Bordeline hyponatremia - Monitor - good response to NS # CKD 2-3 - Trend renal function - Dr. 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 Currently renal function stable and L femoral dialysis access removed 2 weeks ago. - R PICC done 2 weeks ago # Failure to thrive and moderate protein caloric malnutrition - PEG 03/05 - Tube feeds started and tolerating. Need to follow up with ST for safety - Dr. Ricketts following up. # Hypokalemia - Replete as needed # Hypophosphatemia - Replete as needed # Diabetes Mellitus - Lantus 10 BID - Endocrinology following up appreciated. - Resolved hypoglycemia 03/06 # Loose stool - C diff negative 03/07 # PT mobility requested and NEEDS INTENSIVE PT/OT due to prolongued ( > 30 day hospitalization) # ST evaluation for PM Valve trial and swallowing safety as NEW difficulty swallowing noted today. # Disposition CM and SW follow up for LTAC: [facility]ed to [facility] DVT and GI ppx Full code Subjective Date patient seen: Mar 13, 2019 Time patient seen: 08:00 ROS Limited/Unobtainable: No Allergies: Coded Allergies: No Known Allergies (Unverified , 02/05/13) Subjective notes reviewed patient trache downgraded to shiley 6 and lasted 20 minutes on pmv patient doing well discussed with RN at bedside plan for PT, ST, OT, and smith removal Objective Last 24 Hour Vital Signs Date Time Temp Pulse Resp B/P (MAP) Pulse Ox O2 Delivery O2 Flow Rate FiO2 03/13/19 08:00 98.2 91 26 133/61 (85) 97 03/13/19 08:00 Trach Collar 7.0 Trach Collar 7.0 03/13/19 07:42 91 20 98 T-Piece 6.0 28 03/13/19 07:24 93 20 97 T-Piece 6.0 28 03/13/19 07:24 97 T-Piece 6.0 28 03/13/19 06:46 133/64 03/13/19 06:46 133/64 03/13/19 04:00 98.0 95 24 133/64 (87) 96 03/13/19 03:59 Trach Collar 7.0 Trach Collar 7.0 03/13/19 03:29 90 03/13/19 01:37 85 20 100 T-Piece 6.0 28 03/13/19 01:28 100 T-Piece 6.0 03/13/19 01:27 80 20 100 T-Piece 6.0 03/13/19 00:00 Trach Collar 7.0 Trach Collar 7.0 03/13/19 00:00 98.2 77 18 130/59 (82) 100 03/12/19 23:35 79 03/12/19 21:19 128/65 03/12/19 21:19 128/65 03/12/19 20:13 Trach Collar Trach Collar 03/12/19 20:00 99.6 86 24 128/65 (86) 99 03/12/19 19:58 95 03/12/19 19:50 94 20 100 T-Piece 6.0 03/12/19 19:42 100 T-Piece 6.0 28 03/12/19 19:40 92 20 100 T-Piece 6.0 28 03/12/19 16:00 97.5 98 19 121/60 (80) 99 03/12/19 16:00 Trach Collar T-piece 03/12/19 15:42 89 03/12/19 14:59 123/63 03/12/19 14:59 123/63 03/12/19 12:51 91 20 100 T-Piece 6.0 28 03/12/19 12:40 91 20 100 T-Piece 6.0 28 03/12/19 12:40 100 T-Piece 6.0 28 03/12/19 12:00 T-piece T-piece 03/12/19 12:00 98.0 92 19 123/63 (83) 100 03/12/19 11:44 116 03/12/19 09:25 87 149/69 Intake and Output 03/12/19 03/13/19 19:00 07:00 Intake Total 756 ml 447 ml Output Total 1600 ml Balance -844 ml 447 ml Free Water 60 ml IV Total 120 ml Tube Feeding 516 ml 387 ml Other 120 ml Output Urine Total 1400 ml Stool Total 200 ml # Voids 1 Height (Feet): 6 Height (Inches): 0.00 Weight (Pounds): 218 General Appearance: WD/WN, no apparent distress, alert Neck: non-tender, supple, other - trache midline Cardiovascular: normal rate, regular rhythm, no JVD Respiratory/Chest: lungs clear, normal breath sounds, no respiratory distress Abdomen: non tender, soft, no organomegaly, other Edema: no edema noted Arm (L), no edema noted Arm (R), no edema noted Leg (L), no edema noted Leg (R), no edema noted Pedal (L), no edema noted Pedal (R), no edema noted Generalized Neurologic: systems requirements planner II-XII grossly normal Leonor Lopez DO Mar 13, 2019 08:51
[2019-03-13] MEDS: TENOFOVIR DISOPROXIL FUMARATE 300 MG ORAL SCH (08:57)
[2019-03-13] MEDS: ETRAVIRINE 200 MG ORAL SCH (08:57)
[2019-03-13] MEDS: Bactrim-DS 1 tab ORAL SCH (08:57)
[2019-03-13] MEDS: RALTEGRAVIR 400 MG ORAL SCH (08:57)
[2019-03-13] MEDS: Pantoprazole Inj IVP SCH (08:58)
[2019-03-13] MEDS ORDERED: Levemir Flexpen SUBQ SCH (09:00)
[2019-03-13] MEDS: Heparin 5000 units/ml inj SUBQ SCH (09:08)
[2019-03-13 12:00] VITALS: BP 118/71
--- NOTE | 2019-03-13 12:00 | NUR ---
Pt transported down for video swallow via hospital bed and O2 tank with off tele order in stable condition.
--- NOTE | 2019-03-13 12:03 | Cardiac Electrophysiology PN ---
Assessment/Plan Assessment/Plan 1. Non-ST elevation myocardial infarction with peak troponin of more than 10, down to 3.[address]-T wave abnormalities. Continue Lipitor and metoprolol Cardiac catheterization as out patient 2. Hypertension. Resume Metoprolol 25 bid. On Norvasc 10 daily, hydralazine 50 q 8 hr and Clonidine 0.2 q 8hrs 3. Respiratory failure due to Multilobar Pneumonia. Extubated 02/19/19. Reintubated 02/20/19 S/P Tracheostomy 03/02/19. Off the vent now 4. Hyperlipidemia. On Lipitor. 5. Human immunodeficiency virus. On anti-retroviral therapy with undetectable viral load. 6. ARF Cr 3 Now Cr 1.3 7. Bleeding from ETT and NG tube. S/P PRBC. Off Aspirin and Lovenox 8. Dysphagia. S/P PEG 03/05/19 DW RN Subjective Subjective In SDU off the vent, sitting in a chair playing with his phone. Tracheostomy capped. Alert in NAD Objective Last 24 Hour Vital Signs Date Time Temp Pulse Resp B/P (MAP) Pulse Ox O2 Delivery O2 Flow Rate FiO2 03/13/19 08:57 91 133/61 03/13/19 08:00 98.2 91 26 133/61 (85) 97 03/13/19 08:00 Trach Collar 7.0 Trach Collar 7.0 03/13/19 07:50 88 03/13/19 07:42 91 20 98 T-Piece 6.0 03/13/19 07:24 93 20 97 T-Piece 6.0 03/13/19 07:24 97 T-Piece 6.0 03/13/19 06:46 133/64 03/13/19 06:46 133/64 03/13/19 04:00 98.0 95 24 133/64 (87) 96 03/13/19 03:59 Trach Collar 7.0 Trach Collar 7.0 03/13/19 03:29 90 03/13/19 01:37 85 20 100 T-Piece 6.0 03/13/19 01:28 100 T-Piece 6.0 03/13/19 01:27 80 20 100 T-Piece 6.0 03/13/19 00:00 Trach Collar 7.0 Trach Collar 7.0 7/23/19 00:00 98.2 77 18 130/59 (82) 100 03/12/19 23:35 79 03/12/19 21:19 128/65 03/12/19 21:19 128/65 03/12/19 20:13 Trach Collar Trach Collar 03/12/19 20:00 99.6 86 24 128/65 (86) 99 03/12/19 19:58 95 03/12/19 19:50 94 20 100 T-Piece 6.0 28 03/12/19 19:42 100 T-Piece 6.0 28 03/12/19 19:40 92 20 100 T-Piece 6.0 28 03/12/19 16:00 97.5 98 19 121/60 (80) 99 03/12/19 16:00 Trach Collar T-piece 03/12/19 15:42 89 03/12/19 14:59 123/63 03/12/19 14:59 123/63 03/12/19 12:51 91 20 100 T-Piece 6.0 28 03/12/19 12:40 91 20 100 T-Piece 6.0 28 03/12/19 12:40 100 T-Piece 6.0 28 Intake and Output 03/12/19 03/13/19 19:00 07:00 Intake Total 756 ml 447 ml Output Total 1600 ml Balance -844 ml 447 ml Free Water 60 ml IV Total 120 ml Tube Feeding 516 ml 387 ml Other 120 ml Output Urine Total 1400 ml Stool Total 200 ml # Voids 1 Objective HEAD AND NECK: No JVD. S/P tracheostomy LUNGS: Coarse rhonchi. CARDIOVASCULAR: Regular S1 and S2 with no gallop or murmur. ABDOMEN: Soft.PEG in place EXTREMITIES: 1 plus pitting edema. Murray Francois MD Mar 13, 2019 12:03
[2019-03-13] MEDS ORDERED: LEVEMIR FL100 UNIT/1 SUBQ (12:38)
[2019-03-13] MEDS ORDERED: HEPARIN SO5000 UNIT2 SUBQ (12:38)
[2019-03-13] MEDS ORDERED: LACRI-LUBE1 APPLIC BOTH EYES (12:38)
[2019-03-13] MEDS ORDERED: LOPRESSOR25 M1 ORAL (12:38)
[2019-03-13] MEDS ORDERED: FIORICET1 EA ORAL (12:38)
[2019-03-13] MEDS ORDERED: BACTRIM-DS1 EA ORAL (12:38)
[2019-03-13] MEDS ORDERED: D50w IV (12:38)
[2019-03-13] MEDS ORDERED: ATIVAN2 MG/ML IV (12:38)
[2019-03-13] MEDS ORDERED: Patient's Own Med ORAL ×2 (12:38)
[2019-03-13] MEDS ORDERED: NORVASC10 MG NG (12:38)
[2019-03-13] MEDS ORDERED: NOVOLOG100 UNITS1 SUBQ (12:38)
[2019-03-13] MEDS ORDERED: MIDAZOLAM H IVP (12:38)
[2019-03-13] MEDS ORDERED: CLONIDINE 0.2M0.2 MG NG (12:38)
[2019-03-13] MEDS ORDERED: SEROQUEL25 MG ORAL (12:38)
[2019-03-13] MEDS ORDERED: APRESOLINE50 MG NG (12:38)
[2019-03-13] MEDS ORDERED: Pantoprazole IVP (12:38)
[2019-03-13] MEDS ORDERED: HIBICLENS118 ML TOPIC (12:38)
[2019-03-13] MEDS ORDERED: APRESOLINE20 MG/ML IV (12:38)
[2019-03-13] MEDS ORDERED: DUONEB 0.5-3(2.53 ML HHN (12:38)
--- NOTE | 2019-03-13 12:39 | Discharge Summary ---
Discharge Summary Hospital Course Date of Admission Feb 06, 2019 at 15:06 Date of Discharge Admitting Diagnosis sepsis HPI Fritz Walters is a 58 year old male who was admitted on Feb 06, 2019 at 15:06 for Sepsis Hospital Course 58 y Male admitted to the hospital due to fever, shortness of breath and chest pain. # Multilobar pneumonia in patient with HIV - Broad sp atbx started. Continue Zosyn, Vancomycin, Azithromycin, TM-SMX ( now prophylactic and completed course for PCP/PJ pnuemonia ) - Fluconazole per ID - Droplet precaution removed. - Flu swab negative - Oxygen support, ventilatory support as not able to wean off ventilator due to agitation.-> patient noqw off ventilator and using PMV - ID consult appreciated. - T piece being tolerated and transferred to [facility] 03/09 - downsize trace collar per pulm-> now at [place] [id number] - f/u speech fo PMV # Hypoxemic respiratory failure- resolved - Critical care follow up. Unable to wean off the ventilator. Tracheostomy completed. - Due to pneumonia - Tolerating CPAP 03/06 - T piece now # Chest pain- resolved - EKG with bifascicular block RBB and LAFB, no ST changes. - Trend troponin x3 completed - ECHO completed with no WMA and preserved EF. Dr. Francois consulted. Consideration for outpatient cath vs possibly myocarditis due to underlying viral infection. No evidence of Takotsubo per TTE. NOT a candidate for angiogram at this time. - NGT prn - Pain control with morphine # HIV - Continue HARRT - VL is undetectable per patient report. T cell count > 400 - CD 4 count 191 # HTN - Resume home medication - Clonidine, Isordil. 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 Currently renal function stable and L femoral dialysis access removed 2 weeks ago. - R PICC done 2 weeks ago # Failure to thrive and moderate protein caloric malnutrition - PEG 03/05 - Tube feeds started and tolerating. Need to follow up with ST for safety - Dr. Ricketts following up. # Hypokalemia - Replete as needed # Hypophosphatemia - Replete as needed # Diabetes Mellitus - Lantus 10 BID - Endocrinology following up appreciated. - Resolved hypoglycemia 03/06 # Loose stool - C diff negative 03/07 # PT mobility requested and NEEDS INTENSIVE PT/OT due to prolongued ( > 30 day hospitalization) # ST evaluation for PM Valve trial and swallowing safety as NEW difficulty swallowing noted today. # Disposition CM and SW follow up for LTAC: faxed to [facility] D[facility] and GI ppx Full code Discharge Discharge Disposition Patient was discharged to Leonor Lopez DO Mar 13, 2019 12:39
--- NOTE | 2019-03-13 13:04 | NUR ---
*-* DISCHARGE PLANNED *-* PATIENT IS DISCHARGED TO: [facility] [address] [place] [address] ROOM# [id number] SKILLED T:[phone] FOR NURSE TO NURSE REPORT. [facility] HAS BEEN ARRANGED FOR [employer] AT [address]
--- NOTE | 2019-03-13 13:09 | Nephrology Progress Note ---
Assessment/Plan Problem List: (1) ISH (acute kidney injury) Assessment: Cr lowering (2) HIV (human immunodeficiency virus infection) (3) NSTEMI (non-ST elevated myocardial infarction) Assessment: troponin decreasing (4) Hypoxia (5) Anemia (6) Diabetes Assessment Acute Renal failure- Cr leveling- Urine out put is good Acidosis improved Acute respiratory failure- Require intubation and Mechanical Ventilation- Anemia- Elevated troponin / IA HTN DM HIV Antibody + Plan Trach 03/02 mag and K and Phos supplement as needed adjust BP meds on feeding IV protonix transfusion as needed 3% Saline BP med adjustment UA and urine studies Avoid Nephrotoxics as possible Monitor renal parameters keep BP and BS in check Per orders No HD at this time Kidney RADHA noted adjust BP meds add Isordil Subjective ROS Limited/Unobtainable: No Constitutional: Reports: malaise, weakness Objective Objective Last 24 Hour Vital Signs Date Time Temp Pulse Resp B/P (MAP) Pulse Ox O2 Delivery O2 Flow Rate FiO2 03/13/19 12:00 97.3 89 24 118/71 (87) 98 03/13/19 12:00 Trach Collar 7.0 Trach Collar 7.0 03/13/19 12:00 96 03/13/19 08:57 91 133/61 03/13/19 08:00 98.2 91 26 133/61 (85) 97 03/13/19 08:00 Trach Collar 7.0 Trach Collar 7.0 03/13/19 07:50 88 03/13/19 07:42 91 20 98 T-Piece 6.0 03/13/19 07:24 93 20 97 T-Piece 6.0 03/13/19 07:24 97 T-Piece 6.0 03/13/19 06:46 133/64 03/13/19 06:46 133/64 03/13/19 04:00 98.0 95 24 133/64 (87) 96 03/13/19 03:59 Trach Collar 7.0 Trach Collar 7.0 03/13/19 03:29 90 03/13/19 01:37 85 20 100 T-Piece 6.0 03/13/19 01:28 100 T-Piece 6.0 03/13/19 01:27 80 20 100 T-Piece 6.0 03/13/19 00:00 Trach Collar 7.0 Trach Collar 7.0 03/13/19 00:00 98.2 77 18 130/59 (82) 100 03/12/19 23:35 79 03/12/19 21:19 128/65 03/12/19 21:19 128/65 03/12/19 20:13 Trach Collar Trach Collar 03/12/19 20:00 99.6 86 24 128/65 (86) 99 03/12/19 19:58 95 03/12/19 19:50 94 20 100 T-Piece 6.0 03/12/19 19:42 100 T-Piece 6.0 03/12/19 19:40 92 20 100 T-Piece 6.0 03/12/19 16:00 97.5 98 19 121/60 (80) 99 03/12/19 16:00 Trach Collar T-piece 03/12/19 15:42 89 03/12/19 14:59 123/63 03/12/19 14:59 123/63 Intake and Output 03/12/19 03/13/19 19:00 07:00 Intake Total 756 ml 447 ml Output Total 1600 ml Balance -844 ml 447 ml Free Water 60 ml IV Total 120 ml Tube Feeding 516 ml 387 ml Other 120 ml Output Urine Total 1400 ml Stool Total 200 ml # Voids 1 Height (Feet): 6 Height (Inches): 0.00 Weight (Pounds): 218 General Appearance: no apparent distress Cardiovascular: tachycardia Respiratory/Chest: decreased breath sounds Abdomen: distended Objective no change Mike Mcdonald MD Mar 13, 2019 13:09
--- NOTE | 2019-03-13 13:40 | Surgery Progress Note ---
Surgery Progress Note Subjective Procedure Performed tracheostomy Additional Comments no acute events exam stable Objective Last 24 Hour Vital Signs Date Time Temp Pulse Resp B/P (MAP) Pulse Ox O2 Delivery O2 Flow Rate FiO2 03/13/19 13:30 88 20 9 T-Piece 6.0 03/13/19 13:13 86 20 98 T-Piece 6.0 28 03/13/19 13:13 98 T-Piece 6.0 28 03/13/19 12:00 97.3 89 24 118/71 (87) 98 03/13/19 12:00 Trach Collar 7.0 Trach Collar 7.0 03/13/19 12:00 96 03/13/19 08:57 91 133/61 03/13/19 08:00 98.2 91 26 133/61 (85) 97 03/13/19 08:00 Trach Collar 7.0 Trach Collar 7.0 03/13/19 07:50 88 03/13/19 07:42 91 20 98 T-Piece 6.0 03/13/19 07:24 93 20 97 T-Piece 6.0 03/13/19 07:24 97 T-Piece 6.0 03/13/19 06:46 133/64 03/13/19 06:46 133/64 03/13/19 04:00 98.0 95 24 133/64 (87) 96 03/13/19 03:59 Trach Collar 7.0 Trach Collar 7.0 03/13/19 03:29 90 03/13/19 01:37 85 20 100 T-Piece 6.0 03/13/19 01:28 100 T-Piece 6.0 03/13/19 01:27 80 20 100 T-Piece 6.0 03/13/19 00:00 Trach Collar 7.0 Trach Collar 7.0 03/13/19 00:00 98.2 77 18 130/59 (82) 100 03/12/19 23:35 79 03/12/19 21:19 128/65 03/12/19 21:19 128/65 03/12/19 20:13 Trach Collar Trach Collar 03/12/19 20:00 99.6 86 24 128/65 (86) 99 03/12/19 19:58 95 03/12/19 19:50 94 20 100 T-Piece 6.0 03/12/19 19:42 100 T-Piece 6.0 28 03/12/19 19:40 92 20 100 T-Piece 6.0 28 03/12/19 16:00 97.5 98 19 121/60 (80) 99 03/12/19 16:00 Trach Collar T-piece 03/12/19 15:42 89 03/12/19 14:59 123/63 03/12/19 14:59 123/63 I&O Intake and Output 03/12/19 03/13/19 19:00 07:00 Intake Total 756 ml 447 ml Output Total 1600 ml Balance -844 ml 447 ml Free Water 60 ml IV Total 120 ml Tube Feeding 516 ml 387 ml Other 120 ml Output Urine Total 1400 ml Stool Total 200 ml # Voids 1 Dressing: dry Wound: clean Cardiovascular: RSR Respiratory: clear Abdomen: soft, present bowel sounds Extremities: no cyanosis Plan Problems: (1) Hypoxia Assessment & Plan: Extensive bilateral upper lobe infiltrates likely inflammatory/infectious. Correlate clinically. Tuberculosis is not excludable. Bilateral pleural effusions. Endotracheal tube and nasogastric tube in good position Atherosclerotic vascular disease (2) Respiratory distress Assessment & Plan: off vent s/p trach improving (3) Sepsis Assessment & Plan: Sepsis with tachycardia, leukocytosis - resolved, abnormal labs, respiratory distress on vent Cont IV abx abnormal lft's improved US noted will cont to follow with recs trend labs okay for diet Rx as written Moiz Costa Mar 13, 2019 13:40
--- NOTE | 2019-03-13 13:58 | NUR ---
NURSE NOTES: Report given to Cherrie from [facility] over phone.
--- NOTE | 2019-03-13 14:29 | NUR ---
DISCHARGE SWALLOW /SPEECH THERAPY SUMMARY: SEE MOD BARIUM SWALLOW STUDY AND SPEECH EVAL. COMPLETED MODIFIED BARIUM SWALLOW STUDY, SEE FULL REPORT TO FOLLOW OR CALL [phone]. ON 6 LITERS OF 92 AND #6 SHILEY CUFFED TRACH (DEFLATED) AND SPEAKING VALVE WITH GOOD RR 20 AND GOOD SATURATION THROUGHOUT STUDY. TONGUE IS COATED WITH WHITE SUBSTANCE (NEEDS MORE ORAL CARE AND BRUSHING OF THE TONGUE). GIVEN THIN LIQUIDS TSP (NOT RECORDED) TSP, CUP, STRAW SEQUENTIAL NECTAR THICK LIQUIDS TSP, CUP, STRAW SEQUENTIAL, HONEY THICK LIQUID TSP, PUREED TSP (2 THIN LIQ WASHES VIA CUP), MASTICATED SOLID (1/2 CRACKER, 3 CC PUDDING) FOLLOWED BY THIN LIQUIDS VIA CUP WASH X2. INITIAL IMPRESSIONS: MILD-MODERATE OROPHARYNGEAL DYSPHAGIA WITH MILD-MODERATE INCREASED ORAL PREP AND OROPHARYNGEAL TRANSIT TIMES DUE TO SENSORIMOTOR DEFICITS. THIN LIQUIDS TSP NO ASP / PENETRATION CUP TRACE SILENT LARYNGEAL PENETRATION (LP)WITH CUP WASH BEFORE AFTER SWALLOW ABOVE THE VOCAL FOLDS NOT EJECTED DUE TO REDUCED TONGUE BASE RETRACTION AND HYOLARYNGEAL EXCURSION MOSTLY. STRAW SEQUENTIAL TRACE LP BEFORE SWALLOW CONTACTS VOCAL FOLDS NOT EJECTED (WITH CUES) DUE TO LATE SWALLOW AND LATE/INCOMPLETE CLOSURE OF LARYNGEAL VESTIBULE (LV). CUP WASH (AFTER PUDDING) TRACE LP CONTACTS VOCAL FOLDS EJECTED CUP WASH (AFTER COOKIE) TRACE ASP PROBABLE NOT EJECTED AND SILENT DUE TO LATE SWALLOW AND LATE CLOSURE OF LV. NECTAR THICK LIQUIDS NO ASP BUT HAD TRACE LP WITH TSP AND STRAW SEQUENTIAL AFTER SWALLOW AND ABOVE VOCAL FOLDS WITH EJECTION DUE TO ABOVE NOTED PHARYNGEAL WEAKNESS AND DYSMOTILITY. CUP TRACE LP CONTACTS VOCAL FOLDS EJECTED DUE TO SAME PROBLEMS. HONEY THICK LIQUIDS TSP NO ASPIRATION NOR LP BUT HAS MORE RESIDUE IN VALLECULAE AND PYRIFORM SINUSES AND NEEDS MULTIPLE SWALLOW TO CLEAR. PUREED TSP NO ASP NOR PENETRATION BUT HAS HIGH RISK DUE TO PHARYNGEAL DYSMOTILITY AND MILD-MOD RESIDUE IN VALLECULAR GREATER THAN PYRIFORM SINUSES. MASTICATED SOLID (1/2 CRACKER AND 3 CC PUDDING) NO ASP/PENETRATION BUT HAS HIGH RISK DUE TO SIGNICANT RESIDUE IN VALLECULAE (MADE HIM COUGH AND HE COULD NOT COUGH IT UP) AND MILD AMOUNTS IN PYRIFORM SINUSES (DUE TO REDUCED PHARYNGEAL MOTILITY) HIGH ASPIRATION/PENETRATION RISK DUE TO THE FOLLOWING DEFICITS/COMPONENTS: Oral Impairment Tongue Control Bolus prep/mastication Bolus dick/lingual motion Oral residue Init. pharyngeal swallow Pharyngeal Impairment Soft palate elevation Laryngeal elevation (LE) Ant. hyoid excursion Epiglottic movement Laryng vestibular closure Pharyngeal stripping wave Pharyngeal contraction Pharyngoesophageal segment Opening Tongue base retraction Pharyngeal residue Decreased pharyngeal sensation FOR RESIDUE GROSSLY FUNCTIONAL ESOPHAGEAL PHASE BUT LIMITED IN LATERAL VIEW AND DUE TO SHOULDER OBSTRUCTION. BENEFITS FROM EFFORTFUL SWALLOW, EFFORTFUL BREATHHOLD, CHIN TUCK LIQUID WASHES (2), SMALL AMOUNTS TSP OR VERY SMALL SIP VIA CUP ONE AT A TIME USING SPEAKING VALVE, MORE TIME. HEAD TURN RIGHT (MAY BE BETTER THAN LEFT) RECOMMENDATIONS: CONTINUE WITH PEG FEEDINGS FOR NOW SINCE PT TO BE TRANSFERRED TO SNF NOW INITIATE PO TRIALS WITH STAGE RIGGER AT [facility] AFTER SHE REVIEWS MOD BARIUM SWALLOW STUDY REPORT AND [place] [facility] [place]. [place]SID[place] STARTING WITH TSP LEVEL THIN AND NECTAR THICK LIQUIDS WITH STAGE RIGGER ONLY FOR NOW USING ASP PREC AND SWALLOW STRATEGIES NOTED ON REPORT. SKILLED DYSPHAGIA MANAGEMENT AND TX
--- NOTE | 2019-03-13 14:35 | Pulmonology Progress Note ---
Assessment/Plan Assessment/Plan Assessment/Plan: VDRF, extubated 02/19, re-intubated 02/20, trach 03/02, trach collar 03/07, downsized to 6DFS 03/13 S/P GT 03/05 Hemoptysis, hematemesis ARDS Acute respiratory failure B pulmonary infiltrates, ? multilobar CAP vs atypical infection vs other ? 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 Lopez D/W RN and RT @ bedside Subjective Allergies: Coded Allergies: No Known Allergies (Unverified , 02/05/13) Subjective AFVSS on TC, celestino TFs, no distress, no cough, no SOB, no FC Trach changed to 6 DFS Awake and speaking without PMV Objective Last 24 Hour Vital Signs Date Time Temp Pulse Resp B/P (MAP) Pulse Ox O2 Delivery O2 Flow Rate FiO2 03/13/19 13:30 88 20 9 T-Piece 6.0 28 03/13/19 13:13 86 20 98 T-Piece 6.0 28 03/13/19 13:13 98 T-Piece 6.0 28 03/13/19 12:00 97.3 89 24 118/71 (87) 98 03/13/19 12:00 Trach Collar 7.0 Trach Collar 7.0 03/13/19 12:00 96 03/13/19 08:57 91 133/61 03/13/19 08:00 98.2 91 26 133/61 (85) 97 03/13/19 08:00 Trach Collar 7.0 Trach Collar 7.0 03/13/19 07:50 88 03/13/19 07:42 91 20 98 T-Piece 6.0 28 03/13/19 07:24 93 20 97 T-Piece 6.0 28 7/23/19 07:24 97 T-Piece 6.0 03/13/19 06:46 133/64 03/13/19 06:46 133/64 03/13/19 04:00 98.0 95 24 133/64 (87) 96 03/13/19 03:59 Trach Collar 7.0 Trach Collar 7.0 03/13/19 03:29 90 03/13/19 01:37 85 20 100 T-Piece 6.0 03/13/19 01:28 100 T-Piece 6.0 03/13/19 01:27 80 20 100 T-Piece 6.0 03/13/19 00:00 Trach Collar 7.0 Trach Collar 7.0 03/13/19 00:00 98.2 77 18 130/59 (82) 100 03/12/19 23:35 79 03/12/19 21:19 128/65 03/12/19 21:19 128/65 03/12/19 20:13 Trach Collar Trach Collar 03/12/19 20:00 99.6 86 24 128/65 (86) 99 03/12/19 19:58 95 03/12/19 19:50 94 20 100 T-Piece 6.0 03/12/19 19:42 100 T-Piece 6.0 03/12/19 19:40 92 20 100 T-Piece 6.0 03/12/19 16:00 97.5 98 19 121/60 (80) 99 03/12/19 16:00 Trach Collar T-piece 03/12/19 15:42 89 03/12/19 14:59 123/63 03/12/19 14:59 123/63 Intake and Output 03/12/19 03/13/19 19:00 07:00 Intake Total 756 ml 447 ml Output Total 1600 ml Balance -844 ml 447 ml Free Water 60 ml IV Total 120 ml Tube Feeding 516 ml 387 ml Other 120 ml Output Urine Total 1400 ml Stool Total 200 ml # Voids 1 General Appearance: WD/WN, no acute distress HEENT: normocephalic, atraumatic, anicteric, mucous membranes moist, status post trach Respiratory/Chest: chest wall non-tender, lungs clear, normal breath sounds, no respiratory distress, no accessory muscle use Cardiovascular: normal peripheral pulses, normal rate, regular rhythm Abdomen: normal bowel sounds, soft, non tender, no organomegaly, non distended , no mass, other - GT Extremities: no cyanosis, no clubbing, no edema Current Medications Medications (Trade) Dose Ordered Sig/Marquis Route PRN Reason Start Time Stop Time Status Last Admin Dose Admin Acetaminophen/ Butalbital/ Caffeine (Fioricet) 1 tab Q8H PRN ORAL For Headache 03/09/19 15:42 04/08/19 15:41 Albuterol/ Ipratropium (Albuterol/ Ipratropium) 3 ml Q6HRT HHN 03/09/19 07:00 03/13/19 19:14 03/13/19 13:14 Amlodipine Besylate (Norvasc) 10 mg DAILY NG 03/09/19 09:00 03/14/19 15:59 03/13/19 08:57 Artificial Tears (Lacri-Lube) 1 applic AC+HS BOTH EYES 03/09/19 11:30 03/20/19 06:29 03/13/19 11:59 Chlorhexidine Gluconate (Jessy-Hex 2%) 1 applic DAILY@1999 TOPIC 03/09/19 20:00 03/27/19 19:59 03/12/19 19:45 Clonidine HCl (Catapres tab) 0.2 mg EVERY 8 HOURS NG 03/09/19 14:00 03/19/19 13:59 03/13/19 06:46 Dextrose (Dextrose 50%) 25 ml Q30M PRN IV Hypoglycemia 03/09/19 07:15 03/31/19 07:14 Dextrose (Dextrose 50%) 50 ml Q30M PRN IV Hypoglycemia 03/09/19 07:15 03/31/19 07:14 Heparin Sodium (Porcine) (Heparin 5000 units/ml) 5,000 units EVERY 12 HOURS SUBQ 03/09/19 09:00 04/05/19 20:59 03/13/19 09:08 Hydralazine HCl (Apresoline) 10 mg Q4H PRN IV bp over 165 syst 03/09/19 08:00 03/19/19 07:59 Hydralazine HCl (Apresoline) 50 mg Q8HR NG 03/09/19 14:00 03/21/19 21:59 03/13/19 06:46 Insulin Aspart (NovoLOG) EVERY 6 HOURS SUBQ 03/09/19 12:00 03/28/19 11:59 03/13/19 13:11 Insulin Detemir (Levemir) 14 units Q12HR SUBQ 03/13/19 09:00 04/01/19 20:59 03/13/19 09:10 Lorazepam (Ativan 2mg/ml 1ml) 2 mg Q2H PRN IV For Anxiety 03/09/19 07:45 03/13/19 19:44 03/10/19 14:40 Metoprolol Tartrate (Lopressor) 25 mg Q12HR ORAL 03/13/19 21:00 04/12/19 20:59 Midazolam HCl (Versed 2mg/2ml vial) 1 mg Q2H PRN IVP Agitation 03/09/19 08:00 03/15/19 07:59 Pantoprazole (Protonix) 40 mg DAILY IVP 03/09/19 09:00 03/24/19 20:59 03/13/19 08:58 Patient Own Medication (Patient's Own Med) 1 ea BID ORAL 03/09/19 09:00 04/08/19 08:59 03/13/19 08:57 Patient Own Medication (Patient's Own Med) 1 ea BID ORAL 03/12/19 09:00 04/11/19 08:59 03/13/19 08:57 Patient Own Medication (Patient's Own Med) 1 ea DAILY ORAL 03/09/19 09:00 04/08/19 08:59 03/13/19 08:57 Quetiapine Fumarate (SEROquel) 25 mg Q12HR ORAL 03/09/19 09:00 04/07/19 20:59 03/13/19 08:58 Trimethoprim/ Sulfamethoxazole (Bactrim-DS) 1 tab DAILY ORAL 03/11/19 12:00 03/18/19 11:59 03/13/19 08:57 Brett Merdeith MD Mar 13, 2019 14:35
[2019-03-13 14:41] VITALS: BP 130/67
--- NOTE | 2019-03-13 15:00 | NUR ---
NURSE NOTES: Spoke to TESSA Blanco and TESSA Ruelas from [facility] regarding [facility]'s car parked in [facility] parking and they said they will follow up with their renal social worker and call us with any questions. 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
--- NOTE | 2019-03-13 15:17 | NUR ---
NURSE NOTES: Pt discharged in stable condition with EMT personnel. hall monitor removed and returned to tele. PICC line removed and pressure applied for 10 min w/ no signs of bleeding. Pt hooked to O2 tank on 6L O2. Belongings given to EMT personnel. Family notified of discharge (Bruna, mother). Addendum: 03/13/19 at 1802 by Marilyn Hicks RN Late entry: Pt's home medications also given to EMT personnel (In personal belongings bag)
[2019-03-13] MEDS ORDERED: NS 275ml ONE (15:59)
[2019-03-13] MEDS ORDERED: Metoprolol 25mg tab ORAL SCH (21:00)
--- NOTE | 2019-03-15 14:33 | Diagnostic Imaging Report ---
Indication: Dysphagia Procedure and findings: A single screen room operator fluoroscopic image of the neck performed in the lateral projection followed by real-time fluoroscopic imaging performed in a lateral projection in conjunction with the speech pathologist evaluation. Variable consistencies of barium given per mouth. Findings: Significant abnormalities of both oral and pharyngeal phases of swallowing are demonstrated. Total fluoroscopic time: 283 seconds. No aspiration or penetration demonstrated with thin liquids, honey/thick, and pureed liquids. With nectar/thick liquid, there was some laryngeal penetration but no aspiration. Abnormal video swallow. Please refer to speech pathology evaluation for more information.
== END 2019-03-13 16:00 | DRG 4 ==
LOC: EDBEDREQ 14:08 → EMR 14:21 → 2W 15:06 → EDBEDREQ 15:08 → EDBEDREQSVC 15:08 → EDBEDREQ 15:50 → EMR 19:11 → ICU 02-07 09:57 → 2W 03-09 06:55
PROC: 0B9M8ZX Drainage of Bilateral Lungs, Via Natural or Artificial Opening Endoscopic, Diagnostic (ICD-10-PCS; 2019-02-09)
PROC: 5A1955Z Respiratory Ventilation, Greater than 96 Consecutive Hours (ICD-10-PCS; 2019-02-09)
PROC: 0BH17EZ Insertion of Endotracheal Airway into Trachea, Via Natural or Artificial Opening (ICD-10-PCS; 2019-02-09)
PROC: 5A1D70Z Performance of Urinary Filtration, Intermittent, Less than 6 Hours Per Day (ICD-10-PCS; 2019-02-13)
PROC: 06HN33Z Insertion of Infusion Device into Left Femoral Vein, Percutaneous Approach (ICD-10-PCS; 2019-02-13)
PROC: 0BH17EZ Insertion of Endotracheal Airway into Trachea, Via Natural or Artificial Opening (ICD-10-PCS; principal; 2019-02-20)
PROC: 5A1955Z Respiratory Ventilation, Greater than 96 Consecutive Hours (ICD-10-PCS; principal; 2019-02-20)
PROC: 06PYX3Z Removal of Infusion Device from Lower Vein, External Approach (ICD-10-PCS; 2019-02-28)
PROC: 0B113F4 Bypass Trachea to Cutaneous with Tracheostomy Device, Percutaneous Approach (ICD-10-PCS; 2019-03-02)
PROC: 0DJ08ZZ Inspection of Upper Intestinal Tract, Via Natural or Artificial Opening Endoscopic (ICD-10-PCS; 2019-03-05)
PROC: 0DH63UZ Insertion of Feeding Device into Stomach, Percutaneous Approach (ICD-10-PCS; 2019-03-05)
DX: A41.9 Sepsis, unspecified organism (principal); I21.4 Non-ST elevation (NSTEMI) myocardial infarction; J18.9 Pneumonia, unspecified organism; J96.01 Acute respiratory failure with hypoxia; J96.02 Acute respiratory failure with hypercapnia; J80 Acute respiratory distress syndrome; B20 Human immunodeficiency virus [HIV] disease; E87.1 Hypo-osmolality and hyponatremia; N17.9 Acute kidney failure, unspecified; F33.8 Other recurrent depressive disorders; K56.7 Ileus, unspecified; K92.0 Hematemesis; Z99.11 Dependence on respirator [ventilator] status; E11.21 Type 2 diabetes mellitus with diabetic nephropathy; E11.65 Type 2 diabetes mellitus with hyperglycemia; I12.9 Hypertensive chronic kidney disease with stage 1 through stage 4 chronic kidney disease, or unspecified chronic kidney disease; E11.22 Type 2 diabetes mellitus with diabetic chronic kidney disease; N18.3 Chronic kidney disease, stage 3 (moderate); D64.9 Anemia, unspecified; Z86.73 Personal history of transient ischemic attack (TIA), and cerebral infarction without residual deficits; R13.10 Dysphagia, unspecified; F41.9 Anxiety disorder, unspecified; R42 Dizziness and giddiness; R19.7 Diarrhea, unspecified; E87.6 Hypokalemia; E83.39 Other disorders of phosphorus metabolism
CPT/HCPCS: 31645; 36415; 36569; 36600; 71045; 71260; 74018; 74230; 76604; 76700; 76705; 76937; 80048; 80053; 80061; 80076; 80202; 81001; 82140; 82164; 82247; 82248; 82270; 82378; 82550; 82553; 82607; 82728; 82746; 82803; 82962; 82977; 83036; 83540; 83550; 83605; 83615; 83735; 83880; 84100; 84300; 84443; 84478; 84484; 84550; 85007; 85025; 85044; 85060; 85362; 85379; 85384; 85610; 85651; 85730; 86021; 86039; 86140; 86360; 86635; 86689; 86703; 86705; 86709; 86710; 86738; 86803; 86850; 86900; 86901; 86920; 87040; 87070; 87081; 87086; 87116; 87205; 87340; 87385; 87536; 89050; 93005; 93306; 93971; 94002; 94003; 94150; 94640; 94660; 94664; 96365; 99291; J1815; J2250; J2405; J2765; J7620; S0077; S5561

== ENCOUNTER 2019-04-22 14:25 | Inpatient (IN) | payer MEDICARE, MEDICAID ==
[~2019-04-22] VITALS: Ht 182.9 cm; Wt 90.0 kg
[~2019-04-22 14:25] MED LIST changes: +ACETAMINOPHEN500 M3 ORAL; +APRESOLINE20 MG/ML IV; +APRESOLINE50 MG NG; +ATIVAN2 MG/ML IV; +BACTRIM-DS1 EA ORAL; +BUTALB-ACETAMI1 EAC1 PO; +CLONIDINE 0.2M0.2 MG NG; +D50w IV; +DUONEB 0.5-3(2.53 ML HHN; +FERROUS SULFAT325 MG ORAL; +FIORICET1 EA ORAL; +HEPARIN SO5000 UNIT2 SUBQ; +HIBICLENS118 ML TOPIC; +ISOSORBIDE MONO30 M1 PO; +JANUVIA25 MG ORAL; +LACRI-LUBE1 APPLIC BOTH EYES; +LEVEMIR FL100 UNIT/1 SUBQ; +LOPRESSOR25 M1 ORAL; +LOSARTAN POTASS50 MG ORAL; +MIDAZOLAM H IVP; +MUCINEX100 MG PO; +NORVASC10 MG NG; +NOVOLOG100 UNITS1 SUBQ; +Pantoprazole IVP; +Patient's Own Med ORAL; +SEROQUEL25 MG ORAL; +VITAMIN B COMP1 EAC5 PO; +VITAMIN D400 INTLU ORAL; +ZETIA10 MG ORAL; +ZYRTEC10 MG ORAL
[2019-04-22 14:39] VITALS: BP 136/75
--- NOTE | 2019-04-22 14:44 | Emergency Room Report ---
History of Present Illness General Chief Complaint: Syncope Source: Patient Present Illness HPI 58-year-old male history of ACS hypertension diabetes, HIV, presents with syncopal-like episodes x1 day feels very lightheaded like is about to pass out aggravated by standing up, alleviated by lying down he also endorses some chest ache for the past 1 day mild severity intermittent, no shortness of breath no abdominal pain no dysuria no fever chills patient presents for evaluation Allergies: Coded Allergies: No Known Allergies (Unverified , 02/05/13) Patient History Past Medical History: see triage record Reviewed Nursing Documentation: PMH: Agreed; PSxH: Agreed Nursing Documentation-PMH Past Medical History: No History, Except For Hx Cardiac Problems: Yes - PA Hx Hypertension: Yes Hx Diabetes: Yes Hx Cancer: No Hx Gastrointestinal Problems: No Hx Neurological Problems: Yes - STROKE Hx Vertigo: Yes Hx Dizziness: Yes Hx Headaches: Yes - Tension headaches Review of Systems All Other Systems: negative except mentioned in HPI Physical Exam Vital Signs Date Time Temp Pulse Resp B/P (MAP) Pulse Ox O2 Delivery O2 Flow Rate FiO2 04/22/19 14:29 98.2 97 20 136/75 (95) 98 Room Air Sp02 EP Interpretation: reviewed, normal General Appearance: well appearing, no apparent distress, alert Head: normocephalic, atraumatic Eyes: bilateral eye PERRL, bilateral eye EOMI ENT: uvula midline, moist mucus membranes Neck: supple, thyroid normal, supple/symm/no masses Respiratory: lungs clear, no respiratory distress, no retraction, no accessory muscle use Cardiovascular #1: normal peripheral pulses, regular rate, rhythm, no edema, no gallop, no murmur Gastrointestinal: non tender, soft, no guarding, no rebound Musculoskeletal: normal inspection Neurologic: alert, oriented x3 Psychiatric: mood/affect normal Skin: no rash, warm/dry Medical Decision Making Diagnostic Impression: Primary Impression: Syncope Qualified Codes: R55 - Syncope and collapse Additional Impression: Anemia Qualified Codes: D64.9 - Anemia, unspecified ER Course 58-year-old male presents with syncopal-like symptoms, worsening over the past 24 hours, patient has a history of anemia history of ACS, Differential includes cardiac syncope, anemia, ACS Labs show anemia EKG negative, chest x-ray negative Patient admitted to Dr. Coats Laboratory Tests Test 04/22/19 15:01 White Blood Count 4.8 K/UL (4.8-10.8) Red Blood Count 3.04 M/UL (4.70-6.10) L Hemoglobin 9.2 G/DL (14.2-18.0) L Hematocrit 26.4 % (42.0-52.0) L Mean Corpuscular Volume 87 FL (80-99) Mean Corpuscular Hemoglobin 30.3 PG (27.0-31.0) Mean Corpuscular Hemoglobin Concent 34.9 G/DL (32.0-36.0) Red Cell Distribution Width 14.4 % (11.6-14.8) Platelet Count 174 K/UL (150-450) Mean Platelet Volume 4.9 FL (6.5-10.1) L Neutrophils (%) (Auto) 60.9 % (45.0-75.0) Lymphocytes (%) (Auto) 28.4 % (20.0-45.0) Monocytes (%) (Auto) 7.9 % (1.0-10.0) Eosinophils (%) (Auto) 1.7 % (0.0-3.0) Basophils (%) (Auto) 1.1 % (0.0-2.0) Prothrombin Time 10.0 SEC (9.30-11.50) Prothrombin Time INR 0.9 (0.9-1.1) PTT 21 SEC (23-33) L Urine Color Nadege Urine Appearance Clear Urine pH 5 (4.5-8.0) Urine Specific [place] 1.020 (1.005-1.035) Urine Protein 2+ (NEGATIVE) H Urine Glucose (UA) 1+ (NEGATIVE) H Urine Ketones Negative (NEGATIVE) Urine Blood Negative (NEGATIVE) Urine Nitrite Negative (NEGATIVE) Urine Bilirubin Negative (NEGATIVE) Urine Ictotest Negative (NEGATIVE) Urine Urobilinogen Normal MG/DL (0.0-1.0) Urine Leukocyte Esterase Negative (NEGATIVE) Urine RBC 0 /HPF (0 - 0) Urine WBC 0-2 /HPF (0 - 0) Urine Squamous Epithelial Cells Occasional /LPF Urine Bacteria Few /HPF (NONE) Urine Mucus Moderate /LPF (NONE/OCC) H Sodium Level 138 MMOL/L (136-145) Potassium Level 4.8 MMOL/L (3.5-5.1) Chloride Level 104 MMOL/L (98-107) Carbon Dioxide Level 21 MMOL/L (21-32) Anion Gap 13 mmol/L (5-15) Blood Urea Nitrogen 25 mg/dL (7-18) H Creatinine 2.3 MG/DL (0.55-1.30) H Estimate Glomerular Filtration Rate 29.2 mL/min (>60) Glucose Level 133 MG/DL (74-106) H Calcium Level 9.3 MG/DL (8.5-10.1) Total Bilirubin 0.4 MG/DL (0.2-1.0) Aspartate Amino Transferase (AST) 36 U/L (15-37) Alanine Aminotransferase (ALT) 39 U/L (12-78) Alkaline Phosphatase 183 U/L (46-116) H Total Creatine Kinase 509 U/L (26-308) H Creatine Kinase MB 4.9 NG/ML (0.0-3.6) H Creatine Kinase MB Relative Index 0.9 Troponin I 0.000 ng/mL (0.000-0.056) Pro-B-Type Natriuretic Peptide 2199 pg/mL (0-125) H Total Protein 8.0 G/DL (6.4-8.2) Albumin 4.2 G/DL (3.4-5.0) Globulin 3.8 g/dL Albumin/Globulin Ratio 1.1 (1.0-2.7) Lipase 525 U/L (73-393) H Urine Opiates Screen Negative (NEGATIVE) Urine Barbiturates Screen Positive (NEGATIVE) H Phencyclidine (PCP) Screen Negative (NEGATIVE) Urine Amphetamines Screen Negative (NEGATIVE) Urine Benzodiazepines Screen Negative (NEGATIVE) Urine Cocaine Screen Negative (NEGATIVE) Urine Marijuana (THC) Screen Negative (NEGATIVE) EKG Diagnostic Results EKG Time: 14:47 EP Interpretation: NSR, rate 95, QTc 452, no acute ST elevations, left axis deviation Rate: normal Rhythm: NSR ST Segments: other - flipped t wave v6, v5 Rhythm Strip Diag. Results Rhythm Strip Time: 15:45 EP Interpretation: yes Rate: 94 Rhythm: NSR, no PVC's, no ectopy Chest X-Ray Diagnostic Results Chest X-Ray Diagnostic Results : Chest X-Ray Ordered: Yes # of Views/Limited/Complete: 1 View Indication: Chest Pain EP Interpretation: Yes Interpretation: no consolidation, no effusion, no pneumothorax, no acute cardiopulmonary disease Impression: No acute disease Electronically Signed by: Mayito Swenson MD Last Vital Signs Date Time Temp Pulse Resp B/P (MAP) Pulse Ox O2 Delivery O2 Flow Rate FiO2 04/22/19 14:39 98.2 20 136/75 98 Room Air 04/22/19 14:29 97 Disposition: ADMITTED INPATIENT Condition: Stable Mayito Swenson MD Apr 22, 2019 14:44
[2019-04-22] MEDS ORDERED: NAPROXEN500 M2 ORAL (14:56)
--- NOTE | 2019-04-22 15:04 | NUR ---
ED Nurse Note: blood and urine sent ermd evana paula done pt on monitor.
[2019-04-22 15:20] LABS: APPEARANCE,URINE CLEAR; BILIRUBIN, URINE NEGATIVE (NEGATIVE); COLOR,URINE AMBER; GLUCOSE, URINE (UA) 1+ (NEGATIVE); KETONES,URINE NEGATIVE (NEGATIVE); LEUKOCYTE ESTERASE ,URINE NEGATIVE (NEGATIVE); NITRITE,URINE NEGATIVE (NEGATIVE); PH,URINE 5 (4.5-8.0); PROTEIN,URINE 2+ (NEGATIVE); UROBILINOGEN,URINE NORMAL MG/DL (0.0-1.0)
[2019-04-22 15:35] LABS: INR 0.9 (0.9-1.1)
--- NOTE | 2019-04-22 15:52 | Diagnostic Imaging Report ---
EXAM: XR Chest, 1 View CLINICAL HISTORY: SYNCOPE TECHNIQUE: Frontal view of the chest. COMPARISON: Chest radiograph on 03/07/2019 FINDINGS: Hardware: None. Lungs/pleura: Normal. No focal consolidation. No pleural effusion or pneumothorax. Heart/mediastinum: Normal. No cardiomegaly. Soft tissues: Unremarkable. Bones: No acute fracture. Degenerative changes of the visualized left acromioclavicular joint and spine. Upper abdomen: Normal. IMPRESSION: No acute disease identified.
[2019-04-22 16:02] LABS: BASOPHILS % (AUTO) 1.1 % (0.0-2.0); EOSINOPHILS % (AUTO) 1.7 % (0.0-3.0); HEMATOCRIT 26.4 % (42.0-52.0); HEMOGLOBIN 9.2 G/DL (14.2-18.0); LYMPHOCYTES % (AUTO) 28.4 % (20.0-45.0); MEAN CORPUSCULAR VOLUME 87 FL (80-99); MONOCYTES % (AUTO) 7.9 % (1.0-10.0); NEUTROPHILS % (AUTO) 60.9 % (45.0-75.0); PLATELET COUNT 174 K/UL (150-450); RED BLOOD COUNT 3.04 M/UL (4.70-6.10); RED CELL DISTRIBUTION WIDTH 14.4 % (11.6-14.8); WHITE BLOOD COUNT 4.8 K/UL (4.8-10.8)
[2019-04-22 16:08] LABS: ANION GAP 13 mmol/L (5-15); BLOOD UREA NITROGEN 25 mg/dL (7-18); CALCIUM 9.3 MG/DL (8.5-10.1); CARBON DIOXIDE 21 MMOL/L (21-32); CHLORIDE 104 MMOL/L (98-107); CREATININE 2.3 MG/DL (0.55-1.30); POTASSIUM 4.8 MMOL/L (3.5-5.1); SODIUM 138 MMOL/L (136-145)
[2019-04-22 16:25] LABS: ALANINE AMINOTRANSFERASE 39 U/L (12-78); ALBUMIN 4.2 G/DL (3.4-5.0); ALBUMIN/GLOBULIN RATIO 1.1 (1.0-2.7); ALKALINE PHOSPHATASE 183 U/L (46-116); ASPARTATE AMINO TRANSFERASE 36 U/L (15-37); BILIRUBIN,TOTAL 0.4 MG/DL (0.2-1.0); CKMB 4.9 NG/ML (0.0-3.6); CREATINE KINASE 509 U/L (26-308)
--- NOTE | 2019-04-22 18:01 | NUR ---
ED Nurse Note: belongings list done. pt's home meds given to pharmacy and stubs of bags attached to belongings list. pt had 4 bags of home meds.
[2019-04-22 18:22] VITALS: BP 134/58
--- NOTE | 2019-04-22 19:14 | NUR ---
HAND-OFF: Report given to Rob ZARATE.
[2019-04-22 19:49] VITALS: BP 150/72
--- NOTE | 2019-04-22 20:09 | NUR ---
ED Nurse Note: Report given to RN Valentina. Belongings and skin condition given to floor RN.
[2019-04-22 20:15] VITALS: BP 142/70
--- NOTE | 2019-04-22 20:17 | NUR ---
ED Nurse Note: Pt wants to keep $22 with himself, report to floor RN.
--- NOTE | 2019-04-22 20:18 | NUR ---
NURSE NOTES: Patient transferred from ED to tele, relationship consultant on, belonging list checked. No active s/s cardiac, respiratory distress noticed at this time. No complaints of pain. Patient AOx4, NSR. IV patent, FA 20G, patent, asymptomatic. Skin is intact, patient able reposition independently, on room air. Bed in lowest position, locked side rails upx2, call light within reach. Will continue to monitor.
[2019-04-22] MEDS ORDERED: Docusate 100mg tablet ORAL PRN (21:00)
[2019-04-22] MEDS: Heparin 5000 units/ml inj SUBQ SCH ×2 (21:00→21:50)
[2019-04-22] MEDS ORDERED: Isentress 400mg tab ORAL SCH (21:00)
[2019-04-22] MEDS: NovoLOG Insulin Flexpen SUBQ SCH (21:48)
[2019-04-22] MEDS: ISENTRESS 400 MG ORAL SCH (22:00)
[2019-04-22] MEDS: LAMOTRIGINE 200 MG ORAL SCH (22:00)
--- NOTE | 2019-04-22 22:09 | Consultation ---
History of Present Illness General Date patient seen: Apr 24, 2019 Time patient seen: 11:57 Chief Complaint: Syncope Present Illness HPI 58-year-old male with history of HIV compliant with retroviral therapy, iron deficiency anemia, diabetes, CKD stage II-III, ACS and hypertension presented to the ED with lightheadedness and one episode of blacking out. Cardiology consulted for syncope. He also complains of chest pain. Echocardiogram with Normal LV function and PA pressures. Allergies: Coded Allergies: No Known Allergies (Unverified , 02/05/13) Medication History Scheduled Acetaminophen* (Acetaminophen Extra Strength*), 500 MG ORAL Q6H, (Reported) Amlodipine Besylate (Norvasc), 10 MG NG DAILY Artificial Tears (Refresh Lacri-Lube Ointment), 1 APPLIC BOTH EYES AC+HS Aspirin Ec* (Aspirin Ec*), 81 MG ORAL DAILY Biotin (Biotin), 5,000 MCG PO DAILY, (Reported) Chlorhexidine Gluconate* (Hibiclens*), 1 APPLIC TOPIC DAILY@2000 Clonidine HCl (Clonidine HCl), 0.2 MG NG EVERY 8 HOURS Duloxetine Hcl* (Cymbalta*), 90 MG ORAL DAILY, (Reported) Etravirine* (Intelence*), 400 MG ORAL DAILY, (Reported) Ezetimibe (Zetia*), 10 MG ORAL BEDTIME, (Reported) Ferrous Sulfate* (Ferrous Sulfate*), 325 MG ORAL THREE TIMES A DAY, (Reported) Folic Acid (Folic Acid), 1 MG PO BID, (Reported) Heparin Sod (Porcine) (Heparin Sodium*), 5,000 UNITS SUBQ EVERY 12 HOURS Hydralazine HCl (Hydralazine HCl), 50 MG NG Q8HR Insulin Aspart (Novolog Flexpen), 0 UNITS SUBQ EVERY 6 HOURS Insulin Detemir (Levemir Flexpen), 14 UNITS SUBQ Q12HR Ipratropium/Albuterol Sulfate (DuoNeb 0.5-3(2.5)mg/3ml), 3 ML HHN Q6HRT Isosorbide Mononitrate (Isosorbide Mononitrate Er), 30 MG PO DAILY, (Reported) Lamotrigine (Lamotrigine), 200 MG PO QHS, (Reported) Losartan Potassium* (Losartan Potassium*), 100 MG ORAL DAILY, (Reported) Metoprolol Tartrate (Metoprolol Tartrate), 25 MG ORAL Q12HR Metoprolol Tartrate* (Metoprolol Tartrate*), 100 MG ORAL Q12HR Naproxen* (Naproxen*), 500 MG ORAL TWICE A DAY, (Reported) Nateglinide (Starlix), 120 MG ORAL THREE TIMES A DAY, (Reported) Quetiapine Fumarate* (Seroquel*), 25 MG ORAL Q12HR Raltegravir (Isentress), 400 MG ORAL EVERY 12 HOURS, (Reported) Sitagliptin* (Januvia*), 100 MG ORAL DAILY, (Reported) Tenofovir Disoproxil Fumarate* (Viread*), 300 MG ORAL DAILY, (Reported) Trimethoprim/Sulfamethoxazole (Bactrim Ds Tablet), 1 TAB ORAL DAILY Vitamin B Complex (Vitamin B Complex), 1 EACH PO DAILY, (Reported) Vitamin D (Vitamin D3), 400 UNITS ORAL DAILY, (Reported) [Pantoprazole], 40 MG IVP DAILY [Patient's Own Med], 1 EA ORAL DAILY [Patient's Own Med], 1 EA ORAL BID [Patient's Own Med], 1 EA ORAL BID Scheduled PRN Acetamin/Butalbital/Caffeine* (Fioricet*), 1 TAB ORAL Q8H PRN Butalb/Acetaminophen/Caffeine (Eavmbr-Tkojpell-Wemr 50-325-40), 1 EACH PO BID PRN for For Pain, (Reported) Cetirizine Hcl* (Zyrtec*), 10 MG ORAL DAILY PRN for Itching, (Reported) Docusate Sodium (Docusate Sodium), 100 MG ORAL TWICE A DAY PRN for Constipation, (Reported) Hydralazine HCl (Hydralazine HCl), 10 MG IV Q4H PRN Lorazepam (Lorazepam), 2 MG IV Q2H PRN Midazolam HCl (Midazolam HCl), 1 MG IVP Q2H PRN [D50w], 25 ML IV Q30M PRN [D50w], 50 ML IV Q30M PRN Miscellaneous Medications Guaifenesin (Mucinex), 100 MG PO, (Reported) Patient History Healthcare decision maker Resuscitation status Advanced Directive on File Review of Systems Constitutional: Reports: no symptoms Eye: Reports: no symptoms ENT: Reports: no symptoms Respiratory: Reports: no symptoms Cardiovascular: Reports: chest pain, syncope Gastrointestinal: Reports: no symptoms Genitourinary: Reports: no symptoms Musculoskeletal: Reports: no symptoms Skin: Reports: no symptoms Psychiatric: Reports: no symptoms Neurological: Reports: no symptoms Endocrine: Reports: no symptoms Hematologic/Lymphatic: Reports: no symptoms Physical Exam General Appearance: no apparent distress, alert Lines, tubes and drains: peripheral HEENT: normocephalic, atraumatic Neck: non-tender, normal alignment, supple Respiratory/Chest: chest wall non-tender, lungs clear, normal breath sounds Cardiovascular/Chest: normal peripheral pulses, normal rate, regular rhythm Abdomen: normal bowel sounds, non tender, soft, no organomegaly, no mass Extremities: normal range of motion, non-tender, normal inspection, no calf tenderness, normal capillary refill, non-pitting Skin Exam: normal pigmentation, warm/dry 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 normal, no motor/sensory deficits Last 24 Hour Vital Signs Date Time Temp Pulse Resp B/P (MAP) Pulse Ox O2 Delivery O2 Flow Rate FiO2 04/22/19 20:18 98.2 98 19 150/72 100 Room Air 04/22/19 19:49 98.2 98 19 150/72 100 Room Air 04/22/19 18:22 98.2 94 17 134/58 100 Room Air 04/22/19 14:39 98.2 20 136/75 98 Room Air 04/22/19 14:29 98.2 97 20 136/75 (95) 98 Room Air Laboratory Tests Test 04/22/19 15:01 White Blood Count 4.8 K/UL (4.8-10.8) Red Blood Count 3.04 M/UL (4.70-6.10) L Hemoglobin 9.2 G/DL (14.2-18.0) L Hematocrit 26.4 % (42.0-52.0) L Mean Corpuscular Volume 87 FL (80-99) Mean Corpuscular Hemoglobin 30.3 PG (27.0-31.0) Mean Corpuscular Hemoglobin Concent 34.9 G/DL (32.0-36.0) Red Cell Distribution Width 14.4 % (11.6-14.8) Platelet Count 174 K/UL (150-450) Mean Platelet Volume 4.9 FL (6.5-10.1) L Neutrophils (%) (Auto) 60.9 % (45.0-75.0) Lymphocytes (%) (Auto) 28.4 % (20.0-45.0) Monocytes (%) (Auto) 7.9 % (1.0-10.0) Eosinophils (%) (Auto) 1.7 % (0.0-3.0) Basophils (%) (Auto) 1.1 % (0.0-2.0) Prothrombin Time 10.0 SEC (9.30-11.50) Prothromb Time International Ratio 0.9 (0.9-1.1) Activated Partial Thromboplast Time 21 SEC (23-33) L Urine Color Nadege Urine Appearance Clear Urine pH 5 (4.5-8.0) Urine Specific [place] 1.020 (1.005-1.035) Urine Protein 2+ (NEGATIVE) H Urine Glucose (UA) 1+ (NEGATIVE) H Urine Ketones Negative (NEGATIVE) Urine Blood Negative (NEGATIVE) Urine Nitrite Negative (NEGATIVE) Urine Bilirubin Negative (NEGATIVE) Urine Ictotest Negative (NEGATIVE) Urine Urobilinogen Normal MG/DL (0.0-1.0) Urine Leukocyte Esterase Negative (NEGATIVE) Urine RBC 0 /HPF (0 - 0) Urine WBC 0-2 /HPF (0 - 0) Urine Squamous Epithelial Cells Occasional /LPF Urine Bacteria Few /HPF (NONE) Urine Mucus Moderate /LPF (NONE/OCC) H Sodium Level 138 MMOL/L (136-145) Potassium Level 4.8 MMOL/L (3.5-5.1) Chloride Level 104 MMOL/L (98-107) Carbon Dioxide Level 21 MMOL/L (21-32) Anion Gap 13 mmol/L (5-15) Blood Urea Nitrogen 25 mg/dL (7-18) H Creatinine 2.3 MG/DL (0.55-1.30) H Estimat Glomerular Filtration Rate 29.2 mL/min (>60) Glucose Level 133 MG/DL (74-106) H Calcium Level 9.3 MG/DL (8.5-10.1) Total Bilirubin 0.4 MG/DL (0.2-1.0) Aspartate Amino Transf (AST/SGOT) 36 U/L (15-37) Alanine Aminotransferase (ALT/SGPT) 39 U/L (12-78) Alkaline Phosphatase 183 U/L (46-116) H Total Creatine Kinase 509 U/L (26-308) H Creatine Kinase MB 4.9 NG/ML (0.0-3.6) H Creatine Kinase MB Relative Index 0.9 Troponin I 0.000 ng/mL (0.000-0.056) Pro-B-Type Natriuretic Peptide 2199 pg/mL (0-125) H Total Protein 8.0 G/DL (6.4-8.2) Albumin 4.2 G/DL (3.4-5.0) Globulin 3.8 g/dL Albumin/Globulin Ratio 1.1 (1.0-2.7) Lipase 525 U/L (73-393) H Urine Opiates Screen Negative (NEGATIVE) Urine Barbiturates Screen Positive (NEGATIVE) H Phencyclidine (PCP) Screen Negative (NEGATIVE) Urine Amphetamines Screen Negative (NEGATIVE) Urine Benzodiazepines Screen Negative (NEGATIVE) Urine Cocaine Screen Negative (NEGATIVE) Urine Marijuana (THC) Screen Negative (NEGATIVE) Microbiology Date/Time Source Procedure Growth Status 04/22/19 19:20 Rectum Received Height (Feet): 6 Weight (Pounds): 192 Medications Current Medications Medications (Trade) Dose Ordered Sig/Marquis Route PRN Reason Start Time Stop Time Status Last Admin Dose Admin Amlodipine Besylate (Norvasc) 10 mg DAILY NG 04/23/19 09:00 05/23/19 08:59 Artificial Tears (Lacri-Lube) 1 applic AC+HS BOTH EYES 04/22/19 21:00 05/22/19 20:59 Aspirin (Ecotrin) 81 mg DAILY ORAL 04/23/19 09:00 05/23/19 08:59 Cetirizine HCl (ZyrTEC) 10 mg DAILY PRN ORAL Itching 04/22/19 21:00 05/22/19 20:59 Dextrose (Dextrose 50%) 25 ml Q30M PRN IV Hypoglycemia 04/22/19 20:45 05/22/19 20:44 Dextrose (Dextrose 50%) 50 ml Q30M PRN IV Hypoglycemia 04/22/19 20:45 05/22/19 20:44 Docusate Sodium (Colace) 100 mg BIDPRN PRN ORAL Constipation 04/22/19 21:00 05/22/19 20:59 Duloxetine HCl (Cymbalta) 90 mg DAILY ORAL 04/23/19 09:00 05/23/19 08:59 EZETIMIBE (Zetia) 10 mg BEDTIME ORAL 04/22/19 21:00 05/22/19 20:59 04/22/19 21:51 Ferrous Sulfate (Feosol) 325 mg THREE TIMES A DAY ORAL 04/23/19 09:00 05/23/19 08:59 Folic Acid (Folate) 1 mg BID ORAL 04/23/19 09:00 05/23/19 08:59 Heparin Sodium (Porcine) (Heparin 5000 units/ml) 5,000 units EVERY 12 HOURS SUBQ 04/22/19 21:00 05/22/19 20:59 Insulin Aspart (NovoLOG) BEFORE MEALS AND HS SUBQ 04/22/19 21:00 05/22/19 20:59 04/22/19 21:48 Patient Own Medication (Patient's Own Med) 1 ea BID ORAL 04/22/19 22:00 05/22/19 21:59 Patient Own Medication (Patient's Own Med) 1 ea BID ORAL 04/22/19 22:00 05/22/19 21:59 Patient Own Medication (Patient's Own Med) 1 ea QHS ORAL 04/22/19 22:00 05/22/19 21:59 Assessment/Plan Status: stable Assessment/Plan: Assessment/Plan: Syncope Chest pain HIV on HAART Elevated BNP Elevated troponin Anemia CKD/ISH HTN Recommendation 1) Echocardiogram with no outflow tract obstruction, valvular disease, or pulmonary hypertension 2) Carotid US pending 3) Monitor for arrhythmias, ziopatch as outpatient 4) Outpatient ischemia evaluation 5) No indication for diuresis 6) Continue blood pressure medication 7) Neuro consult 8) Salty Greer MD Apr 22, 2019 22:09
[2019-04-22] MEDS: INTELENCE 200 MG ORAL SCH (23:03)
[2019-04-22] MEDS: Lacri-Lube Opth Oint 3.5gm BOTH EYES SCH (23:03)
[2019-04-22] MEDS: Metoprolol 25mg tab ORAL SCH (23:43)
[2019-04-23] VITALS: BP 134/76
[2019-04-23] MEDS: Lacri-Lube Opth Oint 3.5gm BOTH EYES SCH ×4 (05:56→21:00)
[2019-04-23] MEDS: NovoLOG Insulin Flexpen SUBQ SCH ×4 (06:33→21:44)
--- NOTE | 2019-04-23 07:10 | NUR ---
NURSE NOTES:RECEIVED PT RESTING IN BED COMFORTABLY AWAKE ALERT AND ORIENTED X4,DENIES CP OR SOB AT THIS TIME.FULL BODY ASSESSMENT DONE.NO ACUTE DISTRESS NOTED AT THIS TIME.WILL CONT TO MONITOR.
--- NOTE | 2019-04-23 07:14 | NUR ---
HAND-OFF: Report given to TESSA Smith.
[2019-04-23 07:36] LABS: BASOPHILS % (AUTO) 1.1 % (0.0-2.0); EOSINOPHILS % (AUTO) 2.5 % (0.0-3.0); HEMATOCRIT 24.2 % (42.0-52.0); HEMOGLOBIN 8.4 G/DL (14.2-18.0); LYMPHOCYTES % (AUTO) 43.8 % (20.0-45.0); MEAN CORPUSCULAR VOLUME 87 FL (80-99); NEUTROPHILS % (AUTO) 42.6 % (45.0-75.0); PLATELET COUNT 129 K/UL (150-450); RED BLOOD COUNT 2.78 M/UL (4.70-6.10); RED CELL DISTRIBUTION WIDTH 14.4 % (11.6-14.8); WHITE BLOOD COUNT 3.9 K/UL (4.8-10.8)
[2019-04-23 07:41] LABS: ANION GAP 10 mmol/L (5-15); BLOOD UREA NITROGEN 20 mg/dL (7-18); CALCIUM 8.6 MG/DL (8.5-10.1); CARBON DIOXIDE 23 MMOL/L (21-32); CHLORIDE 110 MMOL/L (98-107); CREATININE 1.8 MG/DL (0.55-1.30); POTASSIUM 4.9 MMOL/L (3.5-5.1); SODIUM 143 MMOL/L (136-145)
[2019-04-23 08:00] VITALS: BP 137/70
--- NOTE | 2019-04-23 08:48 | History and Physical ---
History of Present Illness General Date patient seen: Apr 23, 2019 Reason for Hospitalization: Syncope Present Illness HPI 58-year-old male with history of HIV compliant with retroviral therapy, iron deficiency anemia, diabetes, CKD stage II-III, ACS and hypertension presented to the ED with lightheadedness and one episode of blacking out. He says he is comfortable while sitting down and lying down however when he gets up he gets severely lightheaded and feels like he is going to blackout. During these episodes he has some palpitations. He denies any shortness of breath, orthopnea , fever, chills, urinary symptoms. He also feels chest heaviness that comes and goes, without radiation and relieved on its own after lasting 15 to 20 minutes. He knows that he has iron deficiency anemia, he was off iron pills, he restarted taking in March. Of note, he was most recently admitted here on January 2019 for hypoxemic respiratory failure due to multilobar pneumonia. Per patient he had a normal colonoscopy within the last 5 years. he denies throwing up blood, dark stools, weight loss or abdominal pain. Past Medical and surgical History: as above Family history: HTN Social history: Homeless, denies elicit drug use, etoh or smoking Allergies: Coded Allergies: No Known Allergies (Unverified , 02/05/13) Medication History Scheduled Acetaminophen* (Acetaminophen Extra Strength*), 500 MG ORAL Q6H, (Reported) Amlodipine Besylate (Norvasc), 10 MG NG DAILY Artificial Tears (Refresh Lacri-Lube Ointment), 1 APPLIC BOTH EYES AC+HS Aspirin Ec* (Aspirin Ec*), 81 MG ORAL DAILY Biotin (Biotin), 5,000 MCG PO DAILY, (Reported) Chlorhexidine Gluconate* (Hibiclens*), 1 APPLIC TOPIC DAILY@2000 Clonidine HCl (Clonidine HCl), 0.2 MG NG EVERY 8 HOURS Duloxetine Hcl* (Cymbalta*), 90 MG ORAL DAILY, (Reported) Etravirine* (Intelence*), 400 MG ORAL DAILY, (Reported) Ezetimibe (Zetia*), 10 MG ORAL BEDTIME, (Reported) Ferrous Sulfate* (Ferrous Sulfate*), 325 MG ORAL THREE TIMES A DAY, (Reported) Folic Acid (Folic Acid), 1 MG PO BID, (Reported) Heparin Sod (Porcine) (Heparin Sodium*), 5,000 UNITS SUBQ EVERY 12 HOURS Hydralazine HCl (Hydralazine HCl), 50 MG NG Q8HR Insulin Aspart (Novolog Flexpen), 0 UNITS SUBQ EVERY 6 HOURS Insulin Detemir (Levemir Flexpen), 14 UNITS SUBQ Q12HR Ipratropium/Albuterol Sulfate (DuoNeb 0.5-3(2.5)mg/3ml), 3 ML HHN Q6HRT Isosorbide Mononitrate (Isosorbide Mononitrate Er), 30 MG PO DAILY, (Reported) Lamotrigine (Lamotrigine), 200 MG PO QHS, (Reported) Losartan Potassium* (Losartan Potassium*), 100 MG ORAL DAILY, (Reported) Metoprolol Tartrate (Metoprolol Tartrate), 25 MG ORAL Q12HR Metoprolol Tartrate* (Metoprolol Tartrate*), 100 MG ORAL Q12HR Naproxen* (Naproxen*), 500 MG ORAL TWICE A DAY, (Reported) Nateglinide (Starlix), 120 MG ORAL THREE TIMES A DAY, (Reported) Quetiapine Fumarate* (Seroquel*), 25 MG ORAL Q12HR Raltegravir (Isentress), 400 MG ORAL EVERY 12 HOURS, (Reported) Sitagliptin* (Januvia*), 100 MG ORAL DAILY, (Reported) Tenofovir Disoproxil Fumarate* (Viread*), 300 MG ORAL DAILY, (Reported) Trimethoprim/Sulfamethoxazole (Bactrim Ds Tablet), 1 TAB ORAL DAILY Vitamin B Complex (Vitamin B Complex), 1 EACH PO DAILY, (Reported) Vitamin D (Vitamin D3), 400 UNITS ORAL DAILY, (Reported) [Pantoprazole], 40 MG IVP DAILY [Patient's Own Med], 1 EA ORAL DAILY [Patient's Own Med], 1 EA ORAL BID [Patient's Own Med], 1 EA ORAL BID Scheduled PRN Acetamin/Butalbital/Caffeine* (Fioricet*), 1 TAB ORAL Q8H PRN Butalb/Acetaminophen/Caffeine (Ewfnku-Owavlydg-Qmso 50-325-40), 1 EACH PO BID PRN for For Pain, (Reported) Cetirizine Hcl* (Zyrtec*), 10 MG ORAL DAILY PRN for Itching, (Reported) Docusate Sodium (Docusate Sodium), 100 MG ORAL TWICE A DAY PRN for Constipation, (Reported) Hydralazine HCl (Hydralazine HCl), 10 MG IV Q4H PRN Lorazepam (Lorazepam), 2 MG IV Q2H PRN Midazolam HCl (Midazolam HCl), 1 MG IVP Q2H PRN [D50w], 25 ML IV Q30M PRN [D50w], 50 ML IV Q30M PRN Miscellaneous Medications Guaifenesin (Mucinex), 100 MG PO, (Reported) Patient History Healthcare decision maker Resuscitation status Full Code Advanced Directive on File No Family History Family History: In first degree relatives is unremarkable Review of Systems ROS Narrative 12 systems review of systems negative expect as HPI Physical Exam Last 24 Hour Vital Signs Date Time Temp Pulse Resp B/P (MAP) Pulse Ox O2 Delivery O2 Flow Rate FiO2 04/23/19 04:00 94 04/23/19 00:51 Room Air 04/23/19 00:00 94 04/23/19 00:00 98.4 96 20 134/76 (95) 98 04/22/19 23:43 102 142/70 04/22/19 20:25 98 04/22/19 20:18 98.2 98 19 150/72 100 Room Air 04/22/19 20:15 97.3 102 20 142/70 (94) 98 04/22/19 19:49 98.2 98 19 150/72 100 Room Air 04/22/19 18:22 98.2 94 17 134/58 100 Room Air 04/22/19 14:39 98.2 20 136/75 98 Room Air 04/22/19 14:29 98.2 97 20 136/75 (95) 98 Room Air Intake and Output 04/22/19 04/23/19 19:00 07:00 Intake Total 120 ml Balance 120 ml Intake Oral 120 ml # Voids 1 2 # Bowel Movements 1 Laboratory Tests Test 04/22/19 15:01 04/23/19 05:50 White Blood Count 4.8 K/UL (4.8-10.8) 3.9 K/UL (4.8-10.8) L Red Blood Count 3.04 M/UL (4.70-6.10) L 2.78 M/UL (4.70-6.10) L Hemoglobin 9.2 G/DL (14.2-18.0) L 8.4 G/DL (14.2-18.0) L Hematocrit 26.4 % (42.0-52.0) L 24.2 % (42.0-52.0) L Mean Corpuscular Volume 87 FL (80-99) 87 FL (80-99) Mean Corpuscular Hemoglobin 30.3 PG (27.0-31.0) 30.3 PG (27.0-31.0) Mean Corpuscular Hemoglobin Concent 34.9 G/DL (32.0-36.0) 34.8 G/DL (32.0-36.0) Red Cell Distribution Width 14.4 % (11.6-14.8) 14.4 % (11.6-14.8) Platelet Count 174 K/UL (150-450) 129 K/UL (150-450) L Mean Platelet Volume 4.9 FL (6.5-10.1) L 4.9 FL (6.5-10.1) L Neutrophils (%) (Auto) 60.9 % (45.0-75.0) 42.6 % (45.0-75.0) L Lymphocytes (%) (Auto) 28.4 % (20.0-45.0) 43.8 % (20.0-45.0) Monocytes (%) (Auto) 7.9 % (1.0-10.0) 10.0 % (1.0-10.0) Eosinophils (%) (Auto) 1.7 % (0.0-3.0) 2.5 % (0.0-3.0) Basophils (%) (Auto) 1.1 % (0.0-2.0) 1.1 % (0.0-2.0) Prothrombin Time 10.0 SEC (9.30-11.50) Prothromb Time International Ratio 0.9 (0.9-1.1) Activated Partial Thromboplast Time 21 SEC (23-33) L Urine Color Nadege Urine Appearance Clear Urine pH 5 (4.5-8.0) Urine Specific [place] 1.020 (1.005-1.035) Urine Protein 2+ (NEGATIVE) H Urine Glucose (UA) 1+ (NEGATIVE) H Urine Ketones Negative (NEGATIVE) Urine Blood Negative (NEGATIVE) Urine Nitrite Negative (NEGATIVE) Urine Bilirubin Negative (NEGATIVE) Urine Ictotest Negative (NEGATIVE) Urine Urobilinogen Normal MG/DL (0.0-1.0) Urine Leukocyte Esterase Negative (NEGATIVE) Urine RBC 0 /HPF (0 - 0) Urine WBC 0-2 /HPF (0 - 0) Urine Squamous Epithelial Cells Occasional /LPF Urine Bacteria Few /HPF (NONE) Urine Mucus Moderate /LPF (NONE/OCC) H Sodium Level 138 MMOL/L (136-145) 143 MMOL/L (136-145) Potassium Level 4.8 MMOL/L (3.5-5.1) 4.9 MMOL/L (3.5-5.1) Chloride Level 104 MMOL/L (98-107) 110 MMOL/L (98-107) H Carbon Dioxide Level 21 MMOL/L (21-32) 23 MMOL/L (21-32) Anion Gap 13 mmol/L (5-15) 10 mmol/L (5-15) Blood Urea Nitrogen 25 mg/dL (7-18) H 20 mg/dL (7-18) H Creatinine 2.3 MG/DL (0.55-1.30) H 1.8 MG/DL (0.55-1.30) H Estimat Glomerular Filtration Rate 29.2 mL/min (>60) 38.8 mL/min (>60) Glucose Level 133 MG/DL (74-106) H 142 MG/DL (74-106) H Calcium Level 9.3 MG/DL (8.5-10.1) 8.6 MG/DL (8.5-10.1) Total Bilirubin 0.4 MG/DL (0.2-1.0) Aspartate Amino Transf (AST/SGOT) 36 U/L (15-37) Alanine Aminotransferase (ALT/SGPT) 39 U/L (12-78) Alkaline Phosphatase 183 U/L (46-116) H Total Creatine Kinase 509 U/L (26-308) H Creatine Kinase MB 4.9 NG/ML (0.0-3.6) H Creatine Kinase MB Relative Index 0.9 Troponin I 0.000 ng/mL (0.000-0.056) Pro-B-Type Natriuretic Peptide 2199 pg/mL (0-125) H Total Protein 8.0 G/DL (6.4-8.2) Albumin 4.2 G/DL (3.4-5.0) Globulin 3.8 g/dL Albumin/Globulin Ratio 1.1 (1.0-2.7) Lipase 525 U/L (73-393) H Urine Opiates Screen Negative (NEGATIVE) Urine Barbiturates Screen Positive (NEGATIVE) H Phencyclidine (PCP) Screen Negative (NEGATIVE) Urine Amphetamines Screen Negative (NEGATIVE) Urine Benzodiazepines Screen Negative (NEGATIVE) Urine Cocaine Screen Negative (NEGATIVE) Urine Marijuana (THC) Screen Negative (NEGATIVE) Iron Level Pending Unsaturated Iron Binding Pending Microbiology Date/Time Source Procedure Growth Status 04/22/19 19:20 Rectum Received Height (Feet): 6 Height (Inches): 0.00 Weight (Pounds): 198 Medications Current Medications Medications (Trade) Dose Ordered Sig/Marquis Route PRN Reason Start Time Stop Time Status Last Admin Dose Admin Amlodipine Besylate (Norvasc) 10 mg DAILY NG 04/23/19 09:00 05/23/19 08:59 Artificial Tears (Lacri-Lube) 1 applic AC+HS BOTH EYES 04/22/19 21:00 05/22/19 20:59 04/22/19 23:03 Ascorbic Acid (Vitamin C) 1,000 mg TID ORAL 04/23/19 09:00 05/23/19 08:59 Aspirin (Ecotrin) 81 mg DAILY ORAL 04/23/19 09:00 05/23/19 08:59 Cetirizine HCl (ZyrTEC) 10 mg DAILY PRN ORAL Itching 04/22/19 21:00 05/22/19 20:59 Dextrose (Dextrose 50%) 25 ml Q30M PRN IV Hypoglycemia 04/22/19 20:45 05/22/19 20:44 Dextrose (Dextrose 50%) 50 ml Q30M PRN IV Hypoglycemia 04/22/19 20:45 05/22/19 20:44 Docusate Sodium (Colace) 100 mg BIDPRN PRN ORAL Constipation 04/22/19 21:00 05/22/19 20:59 Duloxetine HCl (Cymbalta) 90 mg DAILY ORAL 04/23/19 09:00 05/23/19 08:59 EZETIMIBE (Zetia) 10 mg BEDTIME ORAL 04/22/19 21:00 05/22/19 20:59 04/22/19 21:51 Ferrous Sulfate (Feosol) 325 mg THREE TIMES A DAY ORAL 04/23/19 09:00 05/23/19 08:59 Folic Acid (Folate) 1 mg BID ORAL 04/23/19 09:00 05/23/19 08:59 Heparin Sodium (Porcine) (Heparin 5000 units/ml) 5,000 units EVERY 12 HOURS SUBQ 04/22/19 21:00 05/22/19 20:59 Insulin Aspart (NovoLOG) BEFORE MEALS AND HS SUBQ 04/22/19 21:00 05/22/19 20:59 04/23/19 06:33 Losartan Potassium (Cozaar) 100 mg DAILY ORAL 04/23/19 09:00 05/23/19 08:59 Metoprolol Tartrate (Lopressor) 25 mg Q12HR ORAL 04/22/19 23:45 05/22/19 23:44 Nateglinide (Starlix) 120 mg THREE TIMES A DAY ORAL 04/23/19 09:00 05/23/19 08:59 Patient Own Medication (Patient's Own Med) 1 ea BID ORAL 04/22/19 22:00 05/22/19 21:59 04/22/19 22:00 Patient Own Medication (Patient's Own Med) 1 ea BID ORAL 04/22/19 22:00 05/22/19 21:59 04/22/19 23:03 Patient Own Medication (Patient's Own Med) 1 ea QHS ORAL 04/22/19 22:00 05/22/19 21:59 04/22/19 22:00 Sitagliptin Phosphate (Januvia) 100 mg DAILY ORAL 04/23/19 09:00 05/23/19 08:59 Tenofovir Disoproxil Fumarate (Viread) 300 mg DAILY ORAL 04/23/19 09:00 05/23/19 08:59 UNV Vitamin B Complex (Vitamin B Complex) 1 tab DAILY ORAL 04/23/19 09:00 05/23/19 08:59 Vitamin D (Vitamin D) 400 intlu DAILY ORAL 04/23/19 09:00 05/23/19 08:59 Objective Narrative General Appearance: well appearing, no apparent distress, alert Head: normocephalic, atraumatic Eyes: bilateral eye PERRL, bilateral eye EOMI, pale conjunctiva ENT: uvula midline, moist mucus membranes Neck: supple, no jvd Respiratory: lungs clear, no respiratory distress, no retraction, no accessory muscle use Cardiovascular: normal peripheral pulses, regular rate, rhythm, trace bipedal edema, no m/r/g Gastrointestinal: non tender, soft, no guarding, no rebound Musculoskeletal: normal inspection Neurologic: alert, oriented x3, grossly intact Psychiatric: mood/affect normal Skin: no rash, warm/dry Assessment/Plan Status: stable Assessment/Plan: 58-year-old male with history of chronic anemia (multifactorial including iron deficiency, HIV) admitted to telemetry for syncopal episode. 1. Syncope EKG personally reviewed by me and negative for any acute changes. Labs reveal normocytic anemia with hemoglobin of 9.2 hematocrit of 24%. This is more or less his baseline hemoglobin. Anemia work-up including iron panel. Resume home iron Telemetry monitoring, to rule out arrhythmias Cardiology consult with Dr. Arias Thyroid panel 2. Elevated BNP, this is downtrending from his admission here in February. He is euvolemic on exam. I I will discuss with cardiology whether or not repeating an echocardiogram is warranted. 3. Normocytic anemia. We will send anemia work-up. Hold off on transfusion. He has been extensively evaluated by GI and hematology. H/H stable. 4. Non-ST elevation myocardial infarction. Cardiac catheterization was planned as outpatient. 5. ISH on CKD III. Follow up creatinine, avoid nephrotoxic agents. Hold Losartan 6. DM. Insulin sliding scale. Hold sitagliptin 7. HTN continue amlodipine and metoprolol 8. Continue Home antiretrovirals Code status: Full code I spent 70 minutes on this encounter, 50% spent on counselling and care coordination. I spent 60 minutes in reviewing patients chart and previous hospitalization. Patricio Coats M.D. Apr 23, 2019 08:48
[2019-04-23] MEDS ORDERED: INTELENCE 200 MG ORAL SCH (09:00)
[2019-04-23] MEDS ORDERED: Losartan 50mg tab ORAL SCH (09:00)
[2019-04-23] MEDS: Heparin 5000 units/ml inj SUBQ SCH (09:00)
[2019-04-23] MEDS ORDERED: DULoxetine 30mg cap ORAL SCH (09:00)
[2019-04-23] MEDS: Vitamin D 400 INTLU TAB ORAL SCH (09:04)
[2019-04-23] MEDS: DULoxetine 30mg cap ORAL SCH (09:04)
[2019-04-23] MEDS: Aspirin EC 81mg tab ORAL SCH (09:04)
[2019-04-23] MEDS: Vitamin B Complex Tab ORAL SCH (09:04)
[2019-04-23 09:07] LABS: % IRON SATURATION 28 % (15-50); IRON 49 ug/dL (50-175); TOTAL IRON BINDING CAPACITY 176 ug/dL (250-450)
[2019-04-23] MEDS: Ascorbic Acid 500mg tab ORAL SCH ×3 (09:07→17:37)
[2019-04-23] MEDS: Metoprolol 25mg tab ORAL SCH ×2 (09:10→21:42)
[2019-04-23] MEDS: INTELENCE 200 MG ORAL SCH ×2 (09:19→17:36)
[2019-04-23] MEDS: LAMOTRIGINE 200 MG ORAL SCH (09:20)
[2019-04-23] MEDS: ISENTRESS 400 MG ORAL SCH ×2 (09:20→17:35)
[2019-04-23] MEDS: Sennosides 8.6mg tab ORAL SCH (11:03)
[2019-04-23] MEDS: TENOFOVIR DISOPROXIL FUMARATE 300 MG ORAL SCH (11:03)
[2019-04-23] MEDS: Docusate 100mg tablet ORAL SCH ×2 (11:03→17:37)
[2019-04-23 12:00] VITALS: BP 129/59
--- NOTE | 2019-04-23 19:35 | NUR ---
HAND-OFF: Report given to .ART ZARATE.
[2019-04-23 20:00] VITALS: BP 143/75
[2019-04-24] VITALS: BP 115/64
[2019-04-24 04:00] VITALS: BP 154/84
[2019-04-24] MEDS: Lacri-Lube Opth Oint 3.5gm BOTH EYES SCH ×4 (05:51→17:25)
[2019-04-24] MEDS: NovoLOG Insulin Flexpen SUBQ SCH ×4 (07:02→21:03)
--- NOTE | 2019-04-24 07:32 | NUR ---
NURSE NOTES: Pt still in OBS status, need order for inpoat Addendum: 04/24/19 at 0733 by ART ANTOINE RN need order for inpatient, left message for Dr Curry
--- NOTE | 2019-04-24 07:43 | NUR ---
NURSE NOTES: recvd call from lab, new troponin trending down
[2019-04-24 08:15] VITALS: BP 149/74
[2019-04-24] MEDS: Vitamin B Complex Tab ORAL SCH (08:42)
[2019-04-24] MEDS: Vitamin D 400 INTLU TAB ORAL SCH (08:42)
[2019-04-24] MEDS: Docusate 100mg tablet ORAL SCH ×3 (08:43→17:22)
[2019-04-24] MEDS: Ascorbic Acid 500mg tab ORAL SCH ×3 (08:43→17:20)
[2019-04-24] MEDS: Aspirin EC 81mg tab ORAL SCH (08:44)
[2019-04-24] MEDS: Sennosides 8.6mg tab ORAL SCH (08:44)
[2019-04-24] MEDS: DULoxetine 30mg cap ORAL SCH (08:44)
[2019-04-24] MEDS: Metoprolol 25mg tab ORAL SCH ×2 (08:44→20:58)
[2019-04-24] MEDS: INTELENCE 200 MG ORAL SCH ×2 (08:45→17:23)
[2019-04-24] MEDS: ISENTRESS 400 MG ORAL SCH ×2 (08:46→17:23)
[2019-04-24] MEDS: TENOFOVIR DISOPROXIL FUMARATE 300 MG ORAL SCH (08:47)
--- NOTE | 2019-04-24 09:33 | General Progress Note ---
Assessment/Plan Status: stable Assessment/Plan: 58-year-old male with history of chronic anemia (multifactorial including iron deficiency, HIV) admitted to telemetry for syncopal episode. 1. Syncope EKG personally reviewed by me and negative for any acute changes. Labs reveal normocytic anemia, hemoglobin 8.4. This is more or less his baseline hemoglobin. Iron level borderline normal. Better than previous hospitalization. Mannie and stool FOBT pending. Echo reviewed, okay Resume home iron Telemetry monitoring, to rule out arrhythmias Cardiology consult with han Romero outpatient. ischemia work up as outpatient per cardiolofy Thyroid panel- normal will check orthostatic vitals Neurology consult to rule out neuro causes, although doubtful. Dr. Escobar consulted May consider transfusing 1 uprbc since history of NSTEMI in the past- cardiac patient. 2. Elevated BNP, this is downtrending from his admission here in February. He is euvolemic on exam. No need for diuresis at this point 3. Normocytic anemia. He has been extensively evaluated by GI and hematology. Needs colonoscopy outpatient. Stool fobt. Could be related to HIV 4. Non-ST elevation myocardial infarction. Cardiac catheterization was planned as outpatient. 5. ISH on CKD III. Follow up creatinine, avoid nephrotoxic agents. Hold Losartan 6. DM. Insulin sliding scale. Hold sitagliptin 7. HTN continue amlodipine and metoprolol 8. Continue Home antiretrovirals Code status: Full code I spent 40 minutes on this encounter, 50% spent on counselling and care coordination. Subjective Date patient seen: Apr 24, 2019 ROS Limited/Unobtainable: No Constitutional: Reports: weakness HEENT: Denies: no symptoms, eye pain, blurred vision, tearing, double vision, ear pain, ear discharge, nose pain, nose congestion, throat pain, throat swelling, mouth pain, mouth swelling, other Cardiovascular: Denies: no symptoms, chest pain, edema, irregular heart rate, lightheadedness, palpitations, syncope, other Respiratory: Denies: no symptoms, cough, orthopnea, shortness of breath, SOB with excertion, SOB at rest, sputum, stridor, wheezing, other Gastrointestinal/Abdominal: Denies: no symptoms, abdomen distended, abdominal pain, black stools, tarry stools, blood in stool, constipated, diarrhea, difficulty swallowing, nausea, poor appetite, poor fluid intake, rectal bleeding , vomiting, other Genitourinary: Denies: no symptoms, burning, discharge, frequency, flank pain, hematuria, incontinence, pain, urgency, other Neurologic/Psychiatric: Reports: no symptoms, anxiety, depressed, emotional problems, headache, numbness, paresthesia, pre-existing deficit, seizure, tingling, tremors, weakness, other - dizziness Endocrine: Denies: no symptoms, excessive sweating, flushing, intolerance to cold, intolerance to heat, increased hunger, increased thirst, increased urine, unexplained weight gain, unexplained weight loss, other Allergies: Coded Allergies: No Known Allergies (Unverified , 02/05/13) All Systems: reviewed and negative except above Subjective seen and examined ambulating Says he gets dizzy upon standing no sob, no chest pain No arrhythmias on tele Objective Last 24 Hour Vital Signs Date Time Temp Pulse Resp B/P (MAP) Pulse Ox O2 Delivery O2 Flow Rate FiO2 04/24/19 08:44 97 149/74 04/24/19 08:43 97 149/74 04/24/19 08:15 97 149/74 (99) 04/24/19 04:00 79 04/24/19 04:00 98.1 86 18 154/84 (107) 99 04/24/19 00:00 98.4 97 18 115/64 (81) 98 04/24/19 00:00 95 04/23/19 21:42 90 143/75 04/23/19 20:34 Room Air 04/23/19 20:00 90 04/23/19 20:00 98.3 91 18 143/75 (97) 100 04/23/19 18:00 107 04/23/19 15:00 98.7 04/23/19 12:00 98.7 79 18 129/59 (82) 99 04/23/19 12:00 91 Intake and Output 04/23/19 04/24/19 19:00 07:00 Intake Total 300 ml Balance 300 ml Intake Oral 300 ml # Bowel Movements 1 2 Height (Feet): 6 Height (Inches): 0.00 Weight (Pounds): 198 Objective General Appearance: well appearing, no apparent distress, alert Head: normocephalic, atraumatic Eyes: bilateral eye PERRL, bilateral eye EOMI, pale conjunctiva ENT: uvula midline, moist mucus membranes Neck: supple, no jvd Respiratory: lungs clear, no respiratory distress, no retraction, no accessory muscle use Cardiovascular: normal peripheral pulses, regular rate, rhythm, trace bipedal edema, no m/r/g Gastrointestinal: non tender, soft, no guarding, no rebound Musculoskeletal: normal inspection Neurologic: alert, oriented x3, grossly intact Psychiatric: mood/affect normal Skin: no rash, warm/dry Patricio Coats M.D. Apr 24, 2019 09:33
--- NOTE | 2019-04-24 10:51 | NUR ---
NURSE NOTES: Received report from TESSA Chavez. Patient found walking in arreola with steady gait but co occasional lightheadedness -- stated "when I stand up, my balance is off". AOX4 with calm, cooperative affect. Dr at bedside made aware of H&H from today as well as discussion with patient regarding balance issues. Patient tolerated 100% of breakfast wtih no nvd. No sign of cardiac or respiratory distress. Bed in lowest locked position, urinal in reach and cont'd with plan of care. Addendum: 04/24/19 at 1754 by Clint Perez RN Patient received 1 unit PRBC with no adverse reactions noted. Leg U/S and carotid U/S today. No signs of bleeding , but sample cup in room for OB guaiac test as test is ordered.
[2019-04-24 12:00] VITALS: BP 120/69
--- NOTE | 2019-04-24 12:02 | Cardiology Progress Note ---
Assessment/Plan Status: stable Assessment/Plan Assessment/Plan Syncope Chest pain HIV on HAART Elevated BNP Elevated troponin Anemia CKD/ISH HTN Recommendation 1) Echocardiogram with no outflow tract obstruction, valvular disease, or pulmonary hypertension 2) Carotid US pending 3) Monitor for arrhythmias, ziopatch as outpatient 4) Outpatient ischemia evaluation 5) No indication for diuresis 6) Continue blood pressure medication 7) Neuro consult 8) dispo planning Subjective Cardiovascular: Reports: no symptoms Respiratory: Reports: no symptoms Gastrointestinal/Abdominal: Reports: no symptoms Genitourinary: Reports: no symptoms Subjective No acute events, troponin negative, no chest pain, Echo with diastolic dysfunction, carotid US pending, no arrhythmias Objective Last 24 Hour Vital Signs Date Time Temp Pulse Resp B/P (MAP) Pulse Ox O2 Delivery O2 Flow Rate FiO2 04/24/19 08:44 97 149/74 04/24/19 08:43 97 149/74 04/24/19 08:15 97 149/74 (99) 04/24/19 04:00 79 04/24/19 04:00 98.1 86 18 154/84 (107) 99 04/24/19 00:00 98.4 97 18 115/64 (81) 98 04/24/19 00:00 95 04/23/19 21:42 90 143/75 04/23/19 20:34 Room Air 04/23/19 20:00 90 04/23/19 20:00 98.3 91 18 143/75 (97) 100 04/23/19 18:00 107 04/23/19 15:00 98.7 General Appearance: no apparent distress, alert EENT: PERRL/EOMI, normal ENT inspection, TMs normal Neck: non-tender, normal alignment, supple, normal inspection, no JVD Rhythm: NSR Cardiovascular: normal peripheral pulses, normal rate Respiratory/Chest: chest wall non-tender, lungs clear, normal breath sounds Abdomen: normal bowel sounds, non tender, soft, no organomegaly, no mass Extremities: normal range of motion, non-tender, normal inspection, no calf tenderness, no swelling 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 MD Apr 24, 2019 12:02
--- NOTE | 2019-04-24 15:06 | NUR ---
HOMELESS COORDINATOR HC spoke with patient and patient is alert and oriented. Patient does have a contact number [phone]. Patient states he is chronically homeless and doesn't want resources for a custodial. Patient states he has been homeless for about a year and stays around [facility]. Patient states he was unable to find work and didn't want to live with his mother anymore which contributes his homelessness. Patient has a sportspersons, Odilon Trevizo (sister) [phone]. Patient states he receives $1,000 in [employer] but at the moment is unwilling to use it for placement. Patient states he does not suffer from any substance abuse or has any mental health issues. Patient states he doesn't want HC to make a follow-up appointment but would like to provide clinic resources instead. Patient states he is ready to be discharged and would like bus tokens. Patient continues to require medical intervention. Will continue to monitor and assist as needed. Addendum: 04/24/19 at 1632 by SNEHAL REYES CM ABOVE NOTE ENTERED IN ERRORABOVE NOTE ENTERED IN ERROR
[2019-04-24 16:00] VITALS: BP 123/63
--- NOTE | 2019-04-24 16:22 | NUR ---
HOMELESS COORDINATOR HC spoke with patient and patient is alert and oriented. Patient does have a contact number [phone]. Patient has been here before and is still currently living in his car. Patient states [facility] and doesn't feel the need to return back. Patient states he has been homeless for two years due to having a stroke and being unable to work. Patient states he receives $1,700 in disability. Patient states he has a section 8 voucher he will be receiving on the Apr. Patient states he does not suffer from substance abuse. Patient states he suffers from depression and does not want resources because he is currently seeing a psychologist for that. Patient states he will return to his car upon discharge and would like safe parking resources. Patients states he would make his own follow-up appointment. Patient continues to require medical intervention. Will continue to monitor and assist as needed.
--- NOTE | 2019-04-24 19:30 | NUR ---
NURSE NOTES: Received patient from Carlitos ZARATE. Patient's blood transfusion completed. No acute distress, no c/o rash or itching, SOB. On room air, no signs of respiratory distress. Call light within reach. Patient is ambulatory, steady, alert and oriented x4.
[2019-04-24 20:00] VITALS: BP 143/73
[2019-04-24] MEDS: LAMOTRIGINE 200 MG ORAL SCH (20:58)
[2019-04-25] VITALS (7 sets, daily range): BP systolic 128–168; BP diastolic 70–86
[2019-04-25] MEDS: NovoLOG Insulin Flexpen SUBQ SCH ×4 (06:02→21:00)
[2019-04-25] MEDS: Lacri-Lube Opth Oint 3.5gm BOTH EYES SCH ×4 (06:02→17:53)
[2019-04-25 07:22] LABS: BASOPHILS % (AUTO) 0.6 % (0.0-2.0); EOSINOPHILS % (AUTO) 2.9 % (0.0-3.0); HEMATOCRIT 31.6 % (42.0-52.0); HEMOGLOBIN 10.4 G/DL (14.2-18.0); LYMPHOCYTES % (AUTO) 39.7 % (20.0-45.0); MEAN CORPUSCULAR VOLUME 91 FL (80-99); MONOCYTES % (AUTO) 10.7 % (1.0-10.0); NEUTROPHILS % (AUTO) 46.1 % (45.0-75.0); PLATELET COUNT 147 K/UL (150-450); RED BLOOD COUNT 3.49 M/UL (4.70-6.10); RED CELL DISTRIBUTION WIDTH 14.6 % (11.6-14.8); WHITE BLOOD COUNT 3.8 K/UL (4.8-10.8)
--- NOTE | 2019-04-25 07:43 | NUR ---
HAND-OFF: Report given to Carlitos ZARATE.
--- NOTE | 2019-04-25 07:44 | NUR ---
CASE MANAGEMENT:REVIEW 58 YR OLD MALE PRESENTED TO ER CC: SYNCOPE. CHEST PAIN SI:SYNCOPE. ANEMIA 98.2 97 20 136/75 98% ON RA BUN+25 CR+2.3 H/H-9.2/26.4 TCK+509 BNP+2199 LIPASE+525 IS: CHEST XRAY URINE REFLEX : TO TELEMETRY 04/25/18 SI: SYNCOPE. CHEST PAIN 98.1 84 20 128/77 100% ON RA IS: NORVASC PO QD ASA PO QD STARLIX PO TID JANUVIA PO QD CYMBALTA PO QD LOPRESSOR PO Q12 HAART REGIMEN : TELEMETRY STATUS DCP: HOMELESS?
[2019-04-25 08:06] LABS: ANION GAP 10 mmol/L (5-15); BLOOD UREA NITROGEN 23 mg/dL (7-18); CALCIUM 8.7 MG/DL (8.5-10.1); CARBON DIOXIDE 23 MMOL/L (21-32); CHLORIDE 110 MMOL/L (98-107); CREATININE 1.7 MG/DL (0.55-1.30); FERRITIN 154 NG/ML (8-388); POTASSIUM 4.9 MMOL/L (3.5-5.1); SODIUM 142 MMOL/L (136-145)
--- NOTE | 2019-04-25 08:45 | NUR ---
NURSE NOTES: Received report from TESSA Beebe. Patient found to be aox4 with anxious affect. Active listening and info provided re H&H results trending up. No sign of respiratory or cardiac distress. Call miller in reach. patient up oob to walk in arreola with steady gait. Patient had BM and sending sample to lab now. Tolerated 100% of breakfast with no nvd. Continuing with plan of care.
--- NOTE | 2019-04-25 08:45 | Cardiology Progress Note ---
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 3) Monitor for arrhythmias, ziopatch as outpatient 4) Outpatient ischemia evaluation 5) No indication for diuresis 6) Continue blood pressure medication 7) Neuro consult 8) dispo planning - ok to discharge today Subjective Cardiovascular: Reports: no symptoms Respiratory: Reports: no symptoms Gastrointestinal/Abdominal: Reports: no symptoms Genitourinary: Reports: no symptoms Subjective No acute events, troponin negative, no chest pain, Echo with diastolic dysfunction, no arrhythmias Objective Last 24 Hour Vital Signs Date Time Temp Pulse Resp B/P (MAP) Pulse Ox O2 Delivery O2 Flow Rate FiO2 04/25/19 08:00 97.9 84 18 139/70 (93) 98 04/25/19 04:00 85 04/25/19 04:00 98.1 84 20 128/77 (94) 100 04/25/19 00:00 89 04/25/19 00:00 98.1 73 18 132/71 (91) 99 04/24/19 21:00 Room Air 04/24/19 20:58 87 143/73 04/24/19 20:00 98 04/24/19 20:00 98.4 87 18 143/73 (96) 99 04/24/19 16:00 90 04/24/19 16:00 98.1 85 18 123/63 (83) 99 04/24/19 12:00 86 04/24/19 12:00 98.1 79 20 120/69 (86) 100 04/24/19 09:00 Room Air 04/24/19 08:44 97 149/74 General Appearance: no apparent distress, alert EENT: PERRL/EOMI, normal ENT inspection, TMs normal, pharynx normal Neck: non-tender, normal alignment, supple, normal inspection, no JVD Rhythm: NSR Cardiovascular: normal peripheral pulses, normal rate, regular rhythm Respiratory/Chest: chest wall non-tender, lungs clear, normal breath sounds, no respiratory distress Abdomen: normal bowel sounds, non tender, soft, no organomegaly, no mass Extremities: normal range of motion, non-tender, normal inspection, no calf tenderness, no swelling Neurologic: juvenile correctional officer II-XII grossly normal, no motor/sensory deficits Intake and Output 04/24/19 04/25/19 18:59 06:59 Output Total 300 ml Balance -300 ml Output Urine Total 300 ml # Voids 2 Laboratory Tests Test 04/25/19 06:25 White Blood Count 3.8 K/UL (4.8-10.8) L Red Blood Count 3.49 M/UL (4.70-6.10) L Hemoglobin 10.4 G/DL (14.2-18.0) L Hematocrit 31.6 % (42.0-52.0) L Mean Corpuscular Volume 91 FL (80-99) Mean Corpuscular Hemoglobin 29.7 PG (27.0-31.0) Mean Corpuscular Hemoglobin Concent 32.8 G/DL (32.0-36.0) Red Cell Distribution Width 14.6 % (11.6-14.8) Platelet Count 147 K/UL (150-450) L Mean Platelet Volume 5.0 FL (6.5-10.1) L Neutrophils (%) (Auto) 46.1 % (45.0-75.0) Lymphocytes (%) (Auto) 39.7 % (20.0-45.0) Monocytes (%) (Auto) 10.7 % (1.0-10.0) H Eosinophils (%) (Auto) 2.9 % (0.0-3.0) Basophils (%) (Auto) 0.6 % (0.0-2.0) Sodium Level 142 MMOL/L (136-145) Potassium Level 4.9 MMOL/L (3.5-5.1) Chloride Level 110 MMOL/L (98-107) H Carbon Dioxide Level 23 MMOL/L (21-32) Anion Gap 10 mmol/L (5-15) Blood Urea Nitrogen 23 mg/dL (7-18) H Creatinine 1.7 MG/DL (0.55-1.30) H Estimat Glomerular Filtration Rate 41.5 mL/min (>60) Glucose Level 155 MG/DL (74-106) H Calcium Level 8.7 MG/DL (8.5-10.1) Ferritin 154 NG/ML (8-388) Microbiology Date/Time Source Procedure Growth Status 04/22/19 19:20 Rectum Received Salty Arias MD Apr 25, 2019 08:45
[2019-04-25] MEDS: Docusate 100mg tablet ORAL SCH ×3 (09:00→17:51)
[2019-04-25] MEDS: Metoprolol 25mg tab ORAL SCH ×2 (09:48→21:58)
[2019-04-25] MEDS: DULoxetine 30mg cap ORAL SCH (09:48)
[2019-04-25] MEDS: Sennosides 8.6mg tab ORAL SCH (09:48)
[2019-04-25] MEDS: Vitamin B Complex Tab ORAL SCH (09:48)
[2019-04-25] MEDS: Ascorbic Acid 500mg tab ORAL SCH ×3 (09:49→17:51)
[2019-04-25] MEDS: Vitamin D 400 INTLU TAB ORAL SCH (09:49)
[2019-04-25] MEDS: Aspirin EC 81mg tab ORAL SCH (09:49)
[2019-04-25] MEDS: ISENTRESS 400 MG ORAL SCH ×2 (09:52→17:52)
[2019-04-25] MEDS: TENOFOVIR DISOPROXIL FUMARATE 300 MG ORAL SCH (09:52)
[2019-04-25] MEDS: INTELENCE 200 MG ORAL SCH ×2 (09:53→17:52)
--- NOTE | 2019-04-25 11:20 | NUR ---
Social Service Note SW very familiar with patient from previous admissions. Homeless coordinator met with patient and provided community resources requested. Patient will return to his care upon discharge. Patient is independent with ADLs and is able to follow up with care independently upon discharge. Patient doesn't want his mother contacted regarding this admission. Patient declines follow up care regarding HIV. Patient shows poor insight into his medical care however seeks out medical intervention as needed. Homeless check to be completed upon discharge. Will continue to be available as needed.
--- NOTE | 2019-04-25 13:04 | General Progress Note ---
Assessment/Plan Status: stable Assessment/Plan: 58-year-old male with history of chronic anemia (multifactorial including iron deficiency, HIV) admitted to telemetry for syncopal episode. 1. Syncope EKG personally reviewed by me and negative for any acute changes. Labs reveal normocytic anemia, hemoglobin 8.4. This is more or less his baseline hemoglobin. Iron level borderline normal. Better than previous hospitalization. stool FOBT pending. Echo reviewed, okay. Ferritin 154 Resume home iron, s/p 1 unit prbc Telemetry monitoring, to rule out arrhythmias Cardiology consult with han Romero outpatient. ischemia work up as outpatient per cardiology Thyroid panel- normal Neurology consult to rule out neuro causes, although doubtful. Dr. Berman consulted 2. Elevated BNP, this is downtrending from his admission here in February. He is euvolemic on exam. No need for diuresis at this point 3. Normocytic anemia. He has been extensively evaluated by GI and hematology. Needs colonoscopy outpatient. Stool fobt. Could be related to HIV 4. history of Non-ST elevation myocardial infarction. Cardiac catheterization was planned as outpatient. 5. ISH on CKD III. Follow up creatinine, avoid nephrotoxic agents. Hold Losartan 6. DM. Insulin sliding scale. Hold sitagliptin 7. HTN continue amlodipine and metoprolol 8. HIV on HAART Continue Home antiretrovirals Code status: Full code I spent 40 minutes on this encounter, 50% spent on counselling and care coordination. Subjective Date patient seen: Apr 25, 2019 ROS Limited/Unobtainable: No Constitutional: Denies: no symptoms, chills, diaphoresis, fever, malaise, weakness, other HEENT: Denies: no symptoms, eye pain, blurred vision, tearing, double vision, ear pain, ear discharge, nose pain, nose congestion, throat pain, throat swelling, mouth pain, mouth swelling, other Cardiovascular: Denies: no symptoms, chest pain, edema, irregular heart rate, lightheadedness, palpitations, syncope, other Respiratory: Denies: no symptoms, cough, orthopnea, shortness of breath, SOB with excertion, SOB at rest, sputum, stridor, wheezing, other Gastrointestinal/Abdominal: Denies: no symptoms, abdomen distended, abdominal pain, black stools, tarry stools, blood in stool, constipated, diarrhea, difficulty swallowing, nausea, poor appetite, poor fluid intake, rectal bleeding , vomiting, other Genitourinary: Denies: no symptoms, burning, discharge, frequency, flank pain, hematuria, incontinence, pain, urgency, other Neurologic/Psychiatric: Reports: no symptoms, anxiety, depressed, emotional problems, headache, numbness, paresthesia, pre-existing deficit, seizure, tingling, tremors, weakness, other - dizziness Endocrine: Denies: no symptoms, excessive sweating, flushing, intolerance to cold, intolerance to heat, increased hunger, increased thirst, increased urine, unexplained weight gain, unexplained weight loss, other Allergies: Coded Allergies: No Known Allergies (Unverified , 02/05/13) Subjective seen and examined ambulating tele no arrhythmias s/p 1 unit prbc carotid US done results pending says he is less dizzy now Objective Last 24 Hour Vital Signs Date Time Temp Pulse Resp B/P (MAP) Pulse Ox O2 Delivery O2 Flow Rate FiO2 04/25/19 09:49 84 139/70 04/25/19 09:48 84 139/70 04/25/19 08:00 97.9 84 18 139/70 (93) 98 04/25/19 08:00 94 04/25/19 04:00 85 04/25/19 04:00 98.1 84 20 128/77 (94) 100 04/25/19 00:00 89 04/25/19 00:00 98.1 73 18 132/71 (91) 99 04/24/19 21:00 Room Air 04/24/19 20:58 87 143/73 04/24/19 20:00 98 04/24/19 20:00 98.4 87 18 143/73 (96) 99 04/24/19 16:00 90 04/24/19 16:00 98.1 85 18 123/63 (83) 99 Intake and Output 04/24/19 04/25/19 19:00 07:00 Output Total 300 ml Balance -300 ml Output Urine Total 300 ml # Voids 2 Laboratory Tests 04/25/19 06:25: White Blood Count 3.8L, Red Blood Count 3.49L, Hemoglobin 10.4L, Hematocrit 31.6L, Mean Corpuscular Volume 91, Mean Corpuscular Hemoglobin 29.7, Mean Corpuscular Hemoglobin Concent 32.8, Red Cell Distribution Width 14.6, Platelet Count 147L, Mean Platelet Volume 5.0L, Neutrophils (%) (Auto) 46.1, Lymphocytes (%) (Auto) 39.7, Monocytes (%) (Auto) 10.7H, Eosinophils (%) (Auto) 2.9, Basophils (%) (Auto) 0.6, Sodium Level 142, Potassium Level 4.9, Chloride Level 110H, Carbon Dioxide Level 23, Anion Gap 10, Blood Urea Nitrogen 23H, Creatinine 1.7H, Estimat Glomerular Filtration Rate 41.5, Glucose Level 155H, Calcium Level 8.7, Ferritin 154 04/25/19 09:00: Stool Occult Blood [Pending] Height (Feet): 6 Height (Inches): 0.00 Weight (Pounds): 198 Objective General Appearance: well appearing, no apparent distress, alert Head: normocephalic, atraumatic Eyes: bilateral eye PERRL, bilateral eye EOMI, pale conjunctiva ENT: uvula midline, moist mucus membranes Neck: supple, no jvd Respiratory: lungs clear, no respiratory distress, no retraction, no accessory muscle use Cardiovascular: normal peripheral pulses, regular rate, rhythm, trace bipedal edema, no m/r/g Gastrointestinal: non tender, soft, no guarding, no rebound Musculoskeletal: normal inspection Neurologic: alert, oriented x3, grossly intact Psychiatric: mood/affect normal Skin: no rash, warm/dry Patricio Coats M.D. Apr 25, 2019 13:04
--- NOTE | 2019-04-25 13:15 | NUR ---
P.T Note: P.T evaluation completed . Pt is baseline independent in all areas of ADL/functional mobilities and gait/locomotion. Current functional status does not warrant skilled P.T services. JOSÉ MIGUEL Rodrigez . Thank you for this referral.
[2019-04-25] MEDS ORDERED: ALPRAZolam 0.5mg tab ORAL PRN (16:00)
--- NOTE | 2019-04-25 20:20 | Consultation ---
Consult Note Consult Note NEUROLOGY CONSULTATION: Full note dictated #[id number] 58-year-old, right-handed, gentleman, with long history of HIV disease, iron deficiency anemia, hypertension, diabetes, CKD, ACS, and a stroke associated with unsteadiness on his feet a few years ago. He was recently hospitalized for a pneumonia following which he had significant cognitive and motor problems. He then underwent rehabilitation and has improved significantly since then. He has had a sensation of being lightheaded when he sits stands or walks which goes away if he lies down. This sensation was getting progressively worse as a result of which he presented to the [facility] emergency room and was admitted. He got a blood transfusion yesterday and today he feels pretty close to his normal self with no lightheadedness at all. When he does get lightheaded he denies any associated neurological problems. ON EXAMINATION: Fully oriented Memory: 3/3-0, 1, 3 on second trial Goal Zero through [employer] skills normal Visual-spatial function preserved Speech normal Language normal Cranial nerves II through XII intact except for right seventh central facial paresis. Motor: G 5/5 except for G 4+/5 in right iliopsoas Sensory intact to pinprick light touch and graphesthesia. Position sense diminished in toes bilaterally. Coordination: Tcjglr-[id number]-chrh and [id number] normal. Sways on Romberg Reflexes: 1+ and bilaterally symmetrical at biceps triceps brachioradialis and knees. 0 at both ankles. Plantars flexor. Stance: Minimally wide-based Gait: Minimally wide-based with decreased associated movements on the right side. Right foot sag on heel and toe gait. IMPRESSION: Episodes of lightheadedness and a single episode of passing out when he was in rehabilitation associated with a similar feeling. Episodes of lightheadedness most probably represent near syncopal episodes. Right paresis most probably related to prior stroke. Near syncopal episodes most probably related to anemia and volume depletion. Mild neuropathic process with diminished position sense in the toes bilaterally , decreased deep tendon reflexes, swaying on Romberg test and a minimally wide- based stance and gait. RECOMMENDATIONS: Agree with management thus far. Agree with correcting hemoglobin. Try to keep hemoglobin greater than 10 G at all times. Work-up for other treatable causes of neuropathy. Keep physically active. Try to get patient into a better living situation. Jw Berman M.D., M.S.P.H. Jw Berman MD Apr 25, 2019 20:20
--- NOTE | 2019-04-25 20:27 | NUR ---
NURSE NOTES: received patient from TESSA Jaramillo, patient in stable condition, AOx4, denies pain, ambulatory, bed low&locked , call light within reach, side rail upx2, will continue to monitor and reassess
[2019-04-25] MEDS: LAMOTRIGINE 200 MG ORAL SCH (21:58)
[2019-04-26] VITALS: BP 131/86
--- NOTE | 2019-04-26 02:30 | Consultation ---
DATE OF CONSULTATION: 04/25/2019 NEUROLOGY CONSULTATION CONSULTING PHYSICIAN: Jw Berman M.D. REQUESTING PHYSICIAN: Patricio Coats M.D. HISTORY: Mr. Fritz Walters is a 58-year-old, right-handed, gentleman, who does have a long history of HIV disease, which is well controlled on anti-retroviral therapy, iron deficiency anemia, hypertension, diabetes mellitus, chronic kidney disease, acute coronary syndrome in the past, and a stroke associated with unsteadiness on his feet a few years ago, but not associated with any specific weakness on one side or the other. He was recently hospitalized for a pneumonia following which he had to be intubated and artificially ventilated followed by a tracheostomy and a gastrostomy. He, however, then underwent rehabilitation and improved significantly. While he was undergoing rehabilitation, he started to have episodes of lightheadedness. One of these episodes of lightheadedness was followed by passing out. However, all the other episodes have been just a sensation of lightheadedness without any other symptoms. He tells me that he gets a sensation of lightheadedness when he sits, stands, or walks, and as soon as he lays down, the sensation disappears. This sensation was getting progressively worse and as a result of that, he presented to the [facility] emergency room and was admitted. Since he has been in the hospital, he has been hydrated, given a blood transfusion yesterday, and today he feels significantly better. The lightheadedness has gone away. Associated with lightheadedness, he denies any weakness on one side or the other, numbness on one side or the other, problems with speech, problems with language, problems with vision, or other neurological symptoms. PAST MEDICAL HISTORY: Significant for HIV disease, iron-deficiency anemia, hypertension, diabetes mellitus, chronic kidney disease, acute coronary syndrome, a stroke associated with unsteadiness on his feet a few years ago, and recently severe pneumonia leading to a prolonged hospitalization. FAMILY HISTORY: Significant for high blood pressure in other family members. PERSONAL HISTORY: Home: He is homeless and lives in his car. 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 Habits: He denies the use of alcohol, tobacco, or illicit drugs. PRESENT MEDICATIONS: Include Xanax p.r.n., Tylenol p.r.n., DSS, amlodipine, aspirin, Starlix, Januvia, vitamin D, vitamin B complex, Cymbalta, folic acid, ferrous sulfate, ascorbic acid, metoprolol, insulin, Zyrtec, and Zetia. PHYSICAL EXAMINATION: GENERAL: He is a well-developed, well-nourished, pleasant gentleman, sitting up at the edge of his bed, in no acute distress. VITAL SIGNS: Pulse 80/minute, blood pressure 143/73 mmHg, respirations 20/minute, and temperature 98.1 degrees Fahrenheit. HEAD: Normocephalic and atraumatic. EENT: Examination benign. NECK: No neck rigidity was observed. NEUROLOGICAL EXAMINATION: MENTAL STATUS EXAMINATION: He was awake and alert. He was oriented to person, place, and time. He was able to recall 3/3 words immediately after 1 minute and after 3 minutes on the second trial. He was able to remember Presidents Trump through Bhardwaj Senior. His mathematical skills were good. His visuospatial function was preserved. SPEECH: He had no dysarthria. LANGUAGE: He had no aphasia. CRANIAL NERVE EXAMINATION: II: The visual almaguer were intact on confrontation testing. III, IV & : The external ocular movements were full and the pupils 3 mm in diameter, equal, round, regular, and reactive to light. V: He had normal facial sensations, and the temporales, masseters, and pterygoids functioned normally. VII: He had right seventh central facial paresis. VIII: He was able to hear well bilaterally and had no nystagmus. IX: The palate moved symmetrically on phonation. X: He had no hoarseness of voice. XI: The sternocleidomastoids and trapezii functioned normally. XII: The tongue was in the midline without any fasciculations or atrophy. MOTOR SYSTEM: The tone was normal in all four extremities. Examination of muscle mass revealed no focal wasting. Examination of power revealed G 5/5 power except for G 4+/5 power in the right iliopsoas. SENSORY EXAMINATION: He had intact sensations to pinprick, light touch, and graphesthesia. Position sense is diminished in the toes bilaterally, but was normal in the fingers bilaterally. COORDINATION: He performed well on hrfxvn-bj-jepm and lbcw-ok-igge testing. On Romberg test, he swayed, but did not fall to one side or the other. REFLEXES: 1+ and bilaterally symmetrical at the biceps, triceps, brachioradialis, and knees, 0 at both ankles. The plantar responses were flexor bilaterally. STANCE: He had a minimally wide-based, but stable stance. GAIT: He walked with a minimally wide-based gait with decreased associated movements on the right side. When he was made to walk on his heels and toes, the right foot sagged. DIAGNOSTIC IMPRESSION: 1. Mr. Fritz Walters is a 58-year-old, right-handed, gentleman, who does have a past history of HIV disease, iron-deficiency anemia,hypertension, diabetes mellitus, chronic kidney disease, acute coronary syndrome in the past, and a stroke associated with unsteadiness on his feet in the past. Recently, he was hospitalized for a pneumonia for a prolonged period of time and had to have the tracheostomy, gastrostomy, and prolonged hospitalization. Since then, he has had episodes of lightheadedness of a postural nature. As soon as he lies flat, the lightheadedness goes away. On one occasion, the episode of lightheadedness was followed by loss of consciousness. 2. On neurological examination, at this time, he does have mild problems with memory, a right seventh central facial paresis, right iliopsoas weakness, decreased position sense in the toes bilaterally, swaying on Romberg test, globally diminished reflexes with loss of ankle jerks, a minimally wide-based stance and a minimally wide-based gait with decreased associated movements on the right side. In addition, the right foot sags when he was made to walk on his heels and toes. 3. Laboratory tests have revealed that his hemoglobin was as low as 8.4 G on 03/23/2019. His chemistry panel has revealed that on admission, his BUN was elevated to 25, his creatinine was elevated to 2.3, his glucose was elevated at 133, his alkaline phosphatase was elevated at 183, his CK was elevated at 509, his proBNP was elevated at 2199, his lipase was elevated at 525, his urine toxicology screen was positive for barbiturates, his urine analysis was relatively benign. 4. The patient's history, neurological examination, and laboratory data are most consistent with episodes of lightheadedness most probably of a near syncopal nature. The most likely etiology for this would be the significant anemia and possibly volume depletion. 5. The patient does also have a neuropathic process with diminished position sense in the toes bilaterally, decreased deep tendon reflexes, swaying on Romberg test, and a minimally wide-based stance and gait. This neuropathic process, may be related to his HIV disease, his diabetes, or due to other reasons. RECOMMENDATIONS: 1. The patient was given an explanation of the above- mentioned findings. 2. Agree with management thus far including correcting the patient's hemoglobin. 3. Attempt should be made to keep the patient's hemoglobin greater than 10 G at all times. 4. He should be worked up thoroughly for other treatable causes of neuropathy. 5. He should be kept physically active to improve his vasomotor tone. 6. The patient's living situation is suboptimal - he should be living in a home rather than in a car. 7. Depending on the results of the above-mentioned tests, further recommendations will be given. Thank you for entrusting me with the care of Mr. Walters. I shall follow him with you. Jw Berman M.D., M.S.P.H. DR: JOSUE JOB#: [id number] MTDD
[2019-04-26 06:38] LABS: BASOPHILS % (AUTO) 0.6 % (0.0-2.0); EOSINOPHILS % (AUTO) 3.5 % (0.0-3.0); HEMATOCRIT 32.2 % (42.0-52.0); HEMOGLOBIN 10.6 G/DL (14.2-18.0); LYMPHOCYTES % (AUTO) 38.9 % (20.0-45.0); MEAN CORPUSCULAR VOLUME 90 FL (80-99); MONOCYTES % (AUTO) 10.2 % (1.0-10.0); NEUTROPHILS % (AUTO) 46.8 % (45.0-75.0); PLATELET COUNT 162 K/UL (150-450); RED BLOOD COUNT 3.59 M/UL (4.70-6.10); RED CELL DISTRIBUTION WIDTH 14.6 % (11.6-14.8); WHITE BLOOD COUNT 4.7 K/UL (4.8-10.8)
[2019-04-26] MEDS: Lacri-Lube Opth Oint 3.5gm BOTH EYES SCH ×2 (06:42→11:20)
[2019-04-26] MEDS: NovoLOG Insulin Flexpen SUBQ SCH ×2 (06:43→11:19)
[2019-04-26 07:07] LABS: ANION GAP 10 mmol/L (5-15); BLOOD UREA NITROGEN 22 mg/dL (7-18); CALCIUM 9.1 MG/DL (8.5-10.1); CARBON DIOXIDE 22 MMOL/L (21-32); CHLORIDE 110 MMOL/L (98-107); CREATININE 1.5 MG/DL (0.55-1.30); POTASSIUM 4.8 MMOL/L (3.5-5.1); SODIUM 142 MMOL/L (136-145)
--- NOTE | 2019-04-26 07:28 | NUR ---
HAND-OFF: Report given to, AditiRN, patient in stable condition, plan of care endorsed..
--- NOTE | 2019-04-26 07:29 | NUR ---
NURSE NOTES: Received report from TESSA Jones. Observed patient in bed, awake, alert, able to make needs known. On room air, no acute respiratory distress noted. Patient able to ambulate to restroom with steady gait. Denies pain/discomfort at this time. Safety precautions in place, bed locked, alarmed, and in lowest position, side rails up x2, and call light left within reach. Instructed to call for assistance, verbalized understanding. Will continue with plan of care.
[2019-04-26 08:00] VITALS: BP 142/72
[2019-04-26] MEDS: Docusate 100mg tablet ORAL SCH ×2 (08:20→13:00)
[2019-04-26] MEDS: DULoxetine 30mg cap ORAL SCH (08:20)
[2019-04-26] MEDS: Vitamin B Complex Tab ORAL SCH (08:20)
[2019-04-26] MEDS: Aspirin EC 81mg tab ORAL SCH (08:20)
[2019-04-26] MEDS: Sennosides 8.6mg tab ORAL SCH (08:21)
[2019-04-26] MEDS: Ascorbic Acid 500mg tab ORAL SCH ×2 (08:21→13:00)
[2019-04-26] MEDS: Vitamin D 400 INTLU TAB ORAL SCH (08:21)
[2019-04-26] MEDS: INTELENCE 200 MG ORAL SCH (08:22)
[2019-04-26] MEDS: Metoprolol 25mg tab ORAL SCH (08:22)
[2019-04-26] MEDS: ISENTRESS 400 MG ORAL SCH (08:22)
[2019-04-26] MEDS: TENOFOVIR DISOPROXIL FUMARATE 300 MG ORAL SCH (08:22)
--- NOTE | 2019-04-26 09:50 | Discharge Summary ---
Discharge Summary Hospital Course Date of Admission Apr 24, 2019 at 08:33 Date of Discharge 04/26/2019 Admitting Diagnosis syncope HPI Fritz Walters is a 58 year old male who was admitted on Apr 24, 2019 at 08:33 for Syncope Hospital Course 58-year-old male with history of chronic anemia (multifactorial including iron deficiency, HIV) admitted to telemetry for syncopal episode. 1. Syncope EKG personally reviewed by me and negative for any acute changes. Labs reveal normocytic anemia, hemoglobin 8.4. This is more or less his baseline hemoglobin. Iron level borderline normal. Better than previous hospitalization. stool FOBT NEGATIVE. Echo reviewed, no LV dysfunction. Ferritin 154 Resume home iron, s/p 1 unit prbc and feels much better. ambulating and not lightheaded Telemetry monitoring revealed no arrhythmias Cardiology consult with han Romero outpatient. 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 Berman consulted. 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 Will need outpatient neuropathy work up. 2. Elevated BNP, this is downtrending from his admission here in February. He is euvolemic on exam. No need for diuresis 3. Normocytic anemia. He has been extensively evaluated by GI and hematology. FOBT negative. Needs colonoscopy outpatient. 4. history of Non-ST elevation myocardial infarction. Cardiac catheterization planned as outpatient. 5. ISH on CKD III. Follow up creatinine, avoid nephrotoxic agents. Held Losartan on admission. Can resume on DC. Serum creatinine improved from 2.3--> 1.5 6. DM. Insulin sliding scale. sitagliptin 7. HTN continue amlodipine and metoprolol 8. HIV on HAART Continue Home antiretrovirals Code status: Full code Patient feels his lightheadedness is completely resolved and ambulating without difficulty. He lives out of his car for the past number of days but says he is in line for section 8 housing. I spent 40 minutes on this encounter. Discharge Condition Upon Discharge: stable Discharge Disposition Patient was discharged to Home Discharge Diagnoses: (1) CKD (chronic kidney disease) (2) ISH (acute kidney injury) (3) Anemia (4) Syncope (5) HIV disease (6) Hypertension (7) Diabetes (8) Anxiety Patricio Coats M.D. Apr 26, 2019 09:50
--- NOTE | 2019-04-26 11:55 | Neurology Progress Note ---
Interim History Interim History Interim History Mr. Walters continues to feel well. He has had no significant dizziness, lightheadedness, or sensation of feeling faint. He was able to sleep well last night. He denies any weakness on one side of the other, numbness on one side or the other, problems with speech, problems with language, problems with vision, or other neurological symptoms. Plans are to possibly leave the hospital today. Review of Systems Neuro Review of Systems Benign. Objective Physical Exam Last Vital Signs Date Time Temp Pulse Resp B/P (MAP) Pulse Ox O2 Delivery O2 Flow Rate FiO2 04/26/19 09:00 Room Air 04/26/19 08:22 85 142/72 04/26/19 08:00 98.0 18 98 Laboratory Tests Test 04/25/19 21:02 04/26/19 06:11 Total Protein (PEP) Pending Albumin (PEP) Pending Globulin (PEP) Pending Albumin/Globulin Ratio Pending Leaum-0-Cjxprqpso Pending Acjux-2-Vgetfiakr Pending Beta Globulins Pending Beta Gamma Globulin Pending PEP Abnormal Protein Bands Pending Protein Electrophoresis Interpret Pending Vitamin D 25-Hydroxy Pending 25-Hydroxy Vitamin D2 Pending 25-Hydroxy Vitamin D3 Pending Rapid Plasma Reagin Pending White Blood Count 4.7 K/UL (4.8-10.8) L Red Blood Count 3.59 M/UL (4.70-6.10) L Hemoglobin 10.6 G/DL (14.2-18.0) L Hematocrit 32.2 % (42.0-52.0) L Mean Corpuscular Volume 90 FL (80-99) Mean Corpuscular Hemoglobin 29.5 PG (27.0-31.0) Mean Corpuscular Hemoglobin Concent 32.9 G/DL (32.0-36.0) Red Cell Distribution Width 14.6 % (11.6-14.8) Platelet Count 162 K/UL (150-450) Mean Platelet Volume 5.0 FL (6.5-10.1) L Neutrophils (%) (Auto) 46.8 % (45.0-75.0) Lymphocytes (%) (Auto) 38.9 % (20.0-45.0) Monocytes (%) (Auto) 10.2 % (1.0-10.0) H Eosinophils (%) (Auto) 3.5 % (0.0-3.0) H Basophils (%) (Auto) 0.6 % (0.0-2.0) Sodium Level 142 MMOL/L (136-145) Potassium Level 4.8 MMOL/L (3.5-5.1) Chloride Level 110 MMOL/L (98-107) H Carbon Dioxide Level 22 MMOL/L (21-32) Anion Gap 10 mmol/L (5-15) Blood Urea Nitrogen 22 mg/dL (7-18) H Creatinine 1.5 MG/DL (0.55-1.30) H Estimat Glomerular Filtration Rate 47.9 mL/min (>60) Glucose Level 161 MG/DL (74-106) H Calcium Level 9.1 MG/DL (8.5-10.1) Neurologic Exam Objective PHYSICAL EXAMINATION: GENERAL: He is a well-developed, well-nourished, pleasant gentleman, sitting up in a chair, in no acute distress. HEAD: Normocephalic and atraumatic. EENT: Examination benign. NECK: No neck rigidity was observed. NEUROLOGICAL EXAMINATION: MENTAL STATUS EXAMINATION: He was awake and alert. He was oriented to person, place, and time. He was able to recall 3/3 words immediately after 1 minute and after 3 minutes. He was able to remember Presidents Trump through Bhardwaj Senior. His mathematical skills were good. His visuospatial function was preserved. SPEECH: He had no dysarthria. LANGUAGE: He had no aphasia. CRANIAL NERVE EXAMINATION: II: The visual almaguer were intact on confrontation testing. III, IV & : The external ocular movements were full and the pupils 3 mm in diameter, equal, round, regular, and reactive to light. V: He had normal facial sensations, and the temporales, masseters, and pterygoids functioned normally. VII: He had right seventh central facial paresis. VIII: He was able to hear well bilaterally and had no nystagmus. IX: The palate moved symmetrically on phonation. X: He had no hoarseness of voice. XI: The sternocleidomastoids and trapezii functioned normally. XII: The tongue was in the midline without any fasciculations or atrophy. MOTOR SYSTEM: The tone was normal in all four extremities. Examination of muscle mass revealed no focal wasting. Examination of power revealed G 5/5 power except for G 4+/5 power in the right iliopsoas. SENSORY EXAMINATION: He had intact sensations to pinprick, light touch, and graphesthesia. Position sense is diminished in the toes bilaterally, but was normal in the fingers bilaterally. COORDINATION: He performed well on hbjqgu-tw-wkcp and rzfg-us-auta testing. On Romberg test, he swayed, but did not fall to one side or the other. REFLEXES: 1+ and bilaterally symmetrical at the biceps, triceps, brachioradialis, and knees, 0 at both ankles. The plantar responses were flexor bilaterally. STANCE: He had a minimally wide-based, but stable stance. GAIT: He walked with a minimally wide-based gait with decreased associated movements on the right side. When he was made to walk on his heels and toes, the right foot sagged. Impression/Recommendations Diagnostic Impression 1. Mr. Fritz Walters is a 58-year-old, right-handed, gentleman, who does have a past history of HIV disease, iron-deficiency anemia,hypertension, diabetes mellitus, chronic kidney disease, acute coronary syndrome in the past, and a stroke associated with unsteadiness on his feet in the past. Recently, he was hospitalized for a pneumonia for a prolonged period of time and had to have the tracheostomy, gastrostomy, and prolonged hospitalization. Since then, he has had episodes of lightheadedness of a postural nature. As soon as he lies flat, the lightheadedness goes away. On one occasion, the episode of lightheadedness was followed by loss of consciousness. 2. He continues to feel well. He has had no significant dizziness, lightheadedness, or sensation of feeling faint. He was able to sleep well last night. Plans are to possibly leave the hospital today. 3. On neurological examination, at this time, he does have a right seventh central facial paresis, right iliopsoas weakness, decreased position sense in the toes bilaterally, swaying on Romberg test, globally diminished reflexes with loss of ankle jerks, a minimally wide-based stance and a minimally wide- based gait with decreased associated movements on the right side. In addition, the right foot sags when he was made to walk on his heels and toes. 4. Laboratory tests on my initial evaluation revealed that his hemoglobin was as low as 8.4 G on 03/23/2019. His chemistry panel has revealed that on admission, his BUN was elevated to 25, his creatinine was elevated to 2.3, his glucose was elevated at 133, his alkaline phosphatase was elevated at 183, his CK was elevated at 509, his proBNP was elevated at 2199, his lipase was elevated at 525, his urine toxicology screen was positive for barbiturates, his urine analysis was relatively benign. 5. Further laboratory tests have revealed a normal B12 level, normal folate level, and normal ESR. 6. The patient's history, neurological examination, and laboratory data are most consistent with episodes of lightheadedness most probably of a near syncopal nature. The most likely etiology for this would be the significant anemia and possibly volume depletion. 7. The patient does also have a neuropathic process with diminished position sense in the toes bilaterally, decreased deep tendon reflexes, swaying on Romberg test, and a minimally wide-based stance and gait. This neuropathic process, may be related to his HIV disease and diabetes. Recommendations 1. The patient was given an explanation of the above-mentioned findings. 2. Continue present management. 3. Attempt should be made to keep the patient's hemoglobin greater than 10 G at all times. 4. He should be kept physically active to improve his vasomotor tone. 5. The patient's living situation is suboptimal - he should be living in a home rather than in a car. 6. Continue aspirin 81 mg daily for secondary stroke prophylaxis. 7. Follow-up with neurologist of choice on a regular basis. Jw Berman M.D., M.S.P.H. Jw Berman MD Apr 26, 2019 11:55
[2019-04-26 12:00] VITALS: BP 129/65
--- NOTE | 2019-04-26 12:45 | Diagnostic Imaging Report ---
APPROVED REPORT CPT Code: 78456 Vascular Symptoms Comments: SYNCOPE. Doppler Spectral Velocity Analysis RightLeft carotid arteries and the external carotid arteries, bilaterally. ICA - Imaging reveals irregular plaque in the internal carotid arteries, bilaterally. The Doppler signal indicates the degree of stenosis is minimal (5%) in the internal carotid arteries. VERTEBRAL - The vertebral arteries are patent without evidence of stenosis or steal, bilaterally.
--- NOTE | 2019-04-26 13:39 | NUR ---
Homeless Discharge: Patient is being discharged from medical care. Awake, alert and oriented x4. After care instructions, including referral to community resources were given. Patient verbalized understanding of after care instructions; at this time patient does not request medications, equipment or placement. Patient signed patient consent in the medical record for patient destination upon discharge. Patient's belongings and own medications inventoried and signed by patient. All medical devices such as IV, personnel monitor, and ID band were removed. Patient ambulated out with all personal belongings with steady gait and stable condition.
--- NOTE | 2019-04-30 11:36 | Cardiology Report ---
APPROVED REPORT EXAM: Two-dimensional and M-mode echocardiogram with Doppler and color Doppler. INDICATION LV FUCNTION M-Mode DIMENSIONS IVSd1.4 (0.7-1.1cm)Left Atrium (MM)3.2 (1.6-4.0cm) LVDd5.2 (3.5-5.6cm)Aortic Root3.6 (2.0-3.7cm) PWd1.5 (0.7-1.1cm)Aortic Cusp Exc.1.6 (1.5-2.0cm) IVSs2.2 cm LVDs2.4 (2.5-4.0cm) PWs0.8 cm Normal left ventricular chamber size, systolic function and wall motion . Left ventricular ejection fraction estimated to be 60%. Mild left ventricular hypertrophy. Anterior Echo-free space, may be due to pericardial fat or effusion. All other cardiac chamber sizes are within normal limits. Focal aortic valve sclerosis with adequate cusp excursion. Thickened mitral valve leaflets with normal excursion. Mitral annulus and aortic root calcification. Normal pulmonic valve structure. Normal tricuspid valve structure. IVC at normal size with physiologic collapse. A color flow and spectral Doppler study was performed and revealed: Trace aortic insufficiency. Trace mitral regurgitation. Mitral diastolic velocities suggest reduced left ventricular relaxation c/w mild LV diastolic dysfunction (Grade I ) Trace tricuspid regurgitation. Tricuspid systolic velocities suggests peak right ventricular systolic pressure of 11mmHg.
--- NOTE | 2019-05-05 11:31 | Coder Physician Query ---
Clarification is required for compliance, coding accuracy, and to reflect severity of illness for this patient Dear Dr. Coats Date: 05/05/2019 Informatics Physician/CDS Name: Alexandra Young, VLADIMIR HPI Fritz Levy Jr Romeo is a 58 year old male who was admitted on Apr 24, 2019 at 08:33 for Syncope Hospital Course 58-year-old male with history of chronic anemia (multifactorial including iron deficiency, HIV) admitted to telemetry for syncopal episode. 1. Syncope EKG personally reviewed by me and negative for any acute changes. Labs reveal normocytic anemia, hemoglobin 8.4. This is more or less his baseline hemoglobin. Iron level borderline normal. Better than previous hospitalization. stool FOBT NEGATIVE. Echo reviewed, no LV dysfunction. Ferritin 154 Please specify the cause of SYNCOPE if known: [] Dehydration [] Orthostatic Hypotension [] Autonomic Imbalance [] Autonomic Dysfunction [] Psychogenic [] Shock [] Dialysis Disequilibrium Syndrome [] Heat [] Other: [] Unable to determine Patricio Coats M.D. Date & Time Please also document in your Progress Notes and/or Discharge Summary and indicate if the condition was present on admission. MTDD
== END 2019-04-26 13:39 | disposition home or self-care (01) | DRG 312 ==
LOC: EMR 15:15 → 2E 15:21 → INTOOBSV 15:21 → EDBEDREQ 18:25 → OBSVTOIN 04-24 08:33
PROC: 30233N1 Transfusion of Nonautologous Red Blood Cells into Peripheral Vein, Percutaneous Approach (ICD-10-PCS; principal; 2019-04-24)
DX: R55 Syncope and collapse (principal); N17.9 Acute kidney failure, unspecified; B20 Human immunodeficiency virus [HIV] disease; E11.22 Type 2 diabetes mellitus with diabetic chronic kidney disease; I25.2 Old myocardial infarction; I12.9 Hypertensive chronic kidney disease with stage 1 through stage 4 chronic kidney disease, or unspecified chronic kidney disease; N18.3 Chronic kidney disease, stage 3 (moderate); R07.9 Chest pain, unspecified; D50.9 Iron deficiency anemia, unspecified; Z86.73 Personal history of transient ischemic attack (TIA), and cerebral infarction without residual deficits; Z59.0 Homelessness; G62.9 Polyneuropathy, unspecified
CPT/HCPCS: 36415; 71045; 80048; 80053; 80307; 81003; 82270; 82306; 82550; 82553; 82607; 82728; 82746; 82962; 83036; 83540; 83550; 83690; 83880; 84165; 84443; 84484; 85025; 85610; 85651; 85730; 86592; 86850; 86900; 86901; 86920; 87081; 93005; 93306; 93880; 96365; 99285; J1815

== ENCOUNTER 2019-06-05 20:00 | Inpatient (IN) | payer MEDICARE, MEDICAID ==
[~2019-06-05] VITALS: Ht 182.9 cm; Wt 90.7 kg
[~2019-06-05 20:00] MED LIST changes: +NAPROXEN500 M2 ORAL
--- NOTE | 2019-06-05 20:08 | NUR ---
ED Nurse Note: pt walked in c/o chronic left side chest pain but worsen today, pt reports he was prescribed nitroglycerin and took 2 x 0.4mg tab today at 5pm and the chest pain started getting worse. pt reports pain 8/10 at this time but no nausea, no shortness of breath. pt AA&ox4, gcs=15, skin warm and dry, resp even and unlabored on RA, -n/v/d at this time, ambulates w/ steady gait. noted pt HR 120s on marketing strategy lead with elevated BP 200/89, ERMd notified, 12lead ekg done at the bedside by chemistry technologist. will cont monitor.
[2019-06-05 20:10] VITALS: BP 200/89
[2019-06-05] MEDS ORDERED: Aspirin Baby 81mg ORAL ONE (20:30)
[2019-06-05] MEDS ORDERED: Nitroglycerin 2% oint pkt TOPIC ONE (20:30)
--- NOTE | 2019-06-05 20:35 | Emergency Room Report ---
History of Present Illness General Chief Complaint: Chest Pain Source: Patient, Medical Record Present Illness HPI Disclaimer: Please note that this report is being documented using [employer] technology. This can lead to erroneous entry secondary to incorrect interpretation by the dictating instrument. HPI: 58-year-old female with a history of CAD, NSTEMI, CKD, HIV on retrovirals presents for evaluation of chest pain. Patient states he has had intermittent episodes of chest pain for the past few months and is following up with a psychiatric nurse scheduled for outpatient cardiac catheterization. He has been using his isosorbide with good effect until this afternoon. While at rest he experienced crushing left-sided chest pain radiating to the left axilla became diaphoretic and short of breath. He took 81 mg of aspirin and 2 Nitrostat tablets without significant improvement. He states the pain was more intense than his previous episodes. He has a history of NSTEMI. States he is otherwise been compliant with his medications. Denies any recent illness. Denies abdominal pain, vomiting, diarrhea. Patient states his chest pain is improved now though still persist today 10/01. Shortness of breath and diaphoresis have resolved. There is no vomiting but he did report nausea PMH: HIV, CAD, CKD, respiratory failure in the past PSH: Review chart Allergies: None listed Social Hx: Tobacco use Allergies: Coded Allergies: No Known Allergies (Unverified , 02/05/13) Nursing Documentation-PMH Past Medical History: No History, Except For Hx Cardiac Problems: Yes - AR Hx Hypertension: Yes Hx Diabetes: Yes - DM II Hx Cancer: No Hx Gastrointestinal Problems: No Hx Neurological Problems: Yes - STROKE Hx Cerebrovascular Accident: Yes Hx Vertigo: Yes Hx Dizziness: Yes Hx Syncope: Yes Hx Headaches: Yes - Tension headaches Review of Systems All Other Systems: negative except mentioned in HPI Physical Exam Vital Signs Date Time Temp Pulse Resp B/P (MAP) Pulse Ox O2 Delivery O2 Flow Rate FiO2 06/05/19 20:08 98.4 120 20 200/89 (126) 100 Room Air General: Awake and alert, no acute distress HEENT: NC/AT. EOMI. Neck: Supple, trachea midline Chest Wall: No tenderness, no deformity Cardiovascular: Tachycardic, regular rhythm. S1 and S2 normal. No murmur appreciated Resp: Normal work of breathing. No cough, wheezing or crackles appreciated Abdomen: Abdomen is soft, nondistended. Nontender Skin: Intact. No abrasions, laceration or rash over the exposed skin MSK: Normal tone and bulk. Moving all extremities. No obvious deformity. Neuro: Awake and alert. Mentating appropriately. Medical Decision Making Diagnostic Impression: Primary Impression: Anemia Additional Impressions: Chest pain Tachycardia Hypertensive urgency ER Course Is a 58-year-old male presented for evaluation of chest pain. He has had many risk factors for CAD and known disease pending an outpatient catheterization. His EKG does not appear changed from previous though he has ST depressions in the precordial leads there is no evidence of acute ST segment elevation. We will keep a close eye on monitor. He is tachycardic and hypertensive with systolics in the 200s. We will give the patient aspirin, Nitropaste and start cardiac work-up. Patient will likely require admission Lab Results Impression Laboratory Tests Test 06/05/19 20:15 White Blood Count 4.1 K/UL (4.8-10.8) L Red Blood Count 3.30 M/UL (4.70-6.10) L Hemoglobin 10.0 G/DL (14.2-18.0) L Hematocrit 30.1 % (42.0-52.0) L Mean Corpuscular Volume 91 FL (80-99) Mean Corpuscular Hemoglobin 30.4 PG (27.0-31.0) Mean Corpuscular Hemoglobin Concent 33.4 G/DL (32.0-36.0) Red Cell Distribution Width 12.9 % (11.6-14.8) Platelet Count 197 K/UL (150-450) Mean Platelet Volume 5.0 FL (6.5-10.1) L Neutrophils (%) (Auto) 49.6 % (45.0-75.0) Lymphocytes (%) (Auto) 36.9 % (20.0-45.0) Monocytes (%) (Auto) 10.6 % (1.0-10.0) H Eosinophils (%) (Auto) 2.1 % (0.0-3.0) Basophils (%) (Auto) 0.8 % (0.0-2.0) Sodium Level 139 MMOL/L (136-145) Potassium Level 4.2 MMOL/L (3.5-5.1) Chloride Level 106 MMOL/L (98-107) Carbon Dioxide Level 23 MMOL/L (21-32) Anion Gap 11 mmol/L (5-15) Blood Urea Nitrogen 21 mg/dL (7-18) H Creatinine 1.5 MG/DL (0.55-1.30) H Estimate Glomerular Filtration Rate 47.9 mL/min (>60) Glucose Level 251 MG/DL (74-106) H Calcium Level 8.9 MG/DL (8.5-10.1) Total Bilirubin 0.2 MG/DL (0.2-1.0) Aspartate Amino Transferase (AST) 24 U/L (15-37) Alanine Aminotransferase (ALT) 37 U/L (12-78) Alkaline Phosphatase 176 U/L (46-116) H Total Creatine Kinase 239 U/L (26-308) Creatine Kinase MB 3.1 NG/ML (0.0-3.6) Creatine Kinase MB Relative Index 1.2 Troponin I 0.000 ng/mL (0.000-0.056) Total Protein 7.2 G/DL (6.4-8.2) Albumin 3.4 G/DL (3.4-5.0) Globulin 3.8 g/dL Albumin/Globulin Ratio 0.9 (1.0-2.7) L EKG Diagnostic Results EKG Time: 20:05 Rate: tachycardiac Rhythm: NSR ST Segments: no acute changes Other Impression Sinus tachycardia, normal axis, normal intervals. There is mild ST segment depression in the precordial leads without signs of ST elevation. Rhythm Strip Diag. Results Rhythm Strip Time: 20:05 EP Interpretation: yes Rate: 110s Rhythm: NSR, no PVC's, no ectopy Chest X-Ray Diagnostic Results Chest X-Ray Diagnostic Results : Chest X-Ray Ordered: Yes # of Views/Limited/Complete: 1 View Indication: Chest Pain EP Interpretation: Yes Interpretation: no consolidation, no effusion, no pneumothorax, no acute cardiopulmonary disease Impression: No acute disease Electronically Signed by: Electronically signed by Dr. Emmanuel Fernandez Reevaluation Time: 22:21 Last Vital Signs Date Time Temp Pulse Resp B/P (MAP) Pulse Ox O2 Delivery O2 Flow Rate FiO2 06/05/19 20:10 120 20 Room Air 06/05/19 20:10 98.4 200/89 100 Reevaluation Impression Initial troponin is negative. Blood pressure is improving with systolics now in the 150s. Patient is chest pain-free though remains tachycardic. Chest x- ray unremarkable. I discussed with his psychiatric nurse, Dr. Harden, who after reviewing his medical chart and his multiple risk factors is recommending patient be admitted for cardiology evaluation in the morning. The patient was scheduled for an outpatient left heart catheterization however given his multiple medical conditions has been difficult to schedule and he cannot be seen in clinic until next week. Given his multiple medical conditions and his elevated pressures and persistent tachycardia I feel admission is necessary. Patient is agreeable to admission. Stable for telemetry floor Disposition: ADMITTED INPATIENT Condition: Serious Emmanuel Fernandez MD Jun 05, 2019 20:35
[2019-06-05 20:40] VITALS: BP 178/80
[2019-06-05 20:40] LABS: BASOPHILS % (AUTO) 0.8 % (0.0-2.0); EOSINOPHILS % (AUTO) 2.1 % (0.0-3.0); HEMATOCRIT 30.1 % (42.0-52.0); LYMPHOCYTES % (AUTO) 36.9 % (20.0-45.0); MEAN CORPUSCULAR VOLUME 91 FL (80-99); MONOCYTES % (AUTO) 10.6 % (1.0-10.0); NEUTROPHILS % (AUTO) 49.6 % (45.0-75.0); PLATELET COUNT 197 K/UL (150-450); RED CELL DISTRIBUTION WIDTH 12.9 % (11.6-14.8); WHITE BLOOD COUNT 4.1 K/UL (4.8-10.8)
[2019-06-05 20:43] LABS: ANION GAP 11 mmol/L (5-15); BLOOD UREA NITROGEN 21 mg/dL (7-18); CALCIUM 8.9 MG/DL (8.5-10.1); CARBON DIOXIDE 23 MMOL/L (21-32); CHLORIDE 106 MMOL/L (98-107); CREATININE 1.5 MG/DL (0.55-1.30); POTASSIUM 4.2 MMOL/L (3.5-5.1); SODIUM 139 MMOL/L (136-145)
[2019-06-05 20:56] LABS: ALANINE AMINOTRANSFERASE 37 U/L (12-78); ALBUMIN 3.4 G/DL (3.4-5.0); ALBUMIN/GLOBULIN RATIO 0.9 (1.0-2.7); ALKALINE PHOSPHATASE 176 U/L (46-116); ASPARTATE AMINO TRANSFERASE 24 U/L (15-37); BILIRUBIN,TOTAL 0.2 MG/DL (0.2-1.0); CKMB 3.1 NG/ML (0.0-3.6); CREATINE KINASE 239 U/L (26-308)
[2019-06-05 22:00] VITALS: BP 158/80
--- NOTE | 2019-06-05 23:00 | NUR ---
ED Nurse Note: pt states he would like to keep the medication with himself, pt advised NOT to take his own medication or self medicate due to possible overdose or complication with his condition, pt verbalized understanding and agrees with plan.
[2019-06-05 23:05] VITALS: BP 159/78
--- NOTE | 2019-06-05 23:13 | NUR ---
ED Nurse Note: report given to TESSA Dumont.
--- NOTE | 2019-06-05 23:40 | NUR ---
NURSE NOTES: Received report from TESSA Palafox. Patient was transferred from ED to telemetry unit without any incident. Patient is awake, alert, lying in semi sorto's; resting comfortably. A/Ox4. Able to make needs known. Denies any pain at this time. No signs of acute cardiorespiratory distress noted. Patient was placed on tele box and tolerating well, ST on the monitor, 104 bpm. Vital signs taken T=97.5, JN=531, RR=20, RZ=868/80, O2 sat=99%. Checked IV site and flushed. No erythema, bleeding or infiltration noted. Body assessment done without any skin issues. Belongings list checked with transferring RN. Bed at lowest position, brakes on, siderails x2. Call light within reach. Will continue to monitor. Comfort care provided.
--- NOTE | 2019-06-06 00:15 | NUR ---
NURSE NOTES: Paged Dr. Lutz's office and spoke with Estefani for admitting orders. Awaiting for callback.
--- NOTE | 2019-06-06 00:45 | NUR ---
NURSE NOTES: Dr. Murphy called back for admitting orders. Noted and carried out.
[2019-06-06] MEDS: Albuterol/Ipratropium 3ml neb HHN SCH ×4 (01:00→19:00)
--- NOTE | 2019-06-06 01:25 | NUR ---
NURSE NOTES: Patient refused breathing treatment offered by RT because he wants to sleep. No signs of or SOB noted. Patient's respiration is even and unlabored. Vital signs stable. Will continue to monitor.
[2019-06-06] MEDS ORDERED: guaiFENesin 100mg/5ml Liq ud PO PRN (01:30)
[2019-06-06 01:55] VITALS: BP 157/80
[2019-06-06] MEDS: Acetaminophen 500mg (ES) tab ORAL SCH ×4 (02:00→20:00)
[2019-06-06 04:00] VITALS: BP 140/68
[2019-06-06 05:17] LABS: EOSINOPHILS % (AUTO) 2.7 % (0.0-3.0); HEMOGLOBIN 9.4 G/DL (14.2-18.0); LYMPHOCYTES % (AUTO) 35.7 % (20.0-45.0); MEAN CORPUSCULAR VOLUME 91 FL (80-99); MONOCYTES % (AUTO) 10.9 % (1.0-10.0); NEUTROPHILS % (AUTO) 49.6 % (45.0-75.0); PLATELET COUNT 177 K/UL (150-450); RED BLOOD COUNT 3.06 M/UL (4.70-6.10); RED CELL DISTRIBUTION WIDTH 12.8 % (11.6-14.8); WHITE BLOOD COUNT 4.2 K/UL (4.8-10.8)
[2019-06-06 05:45] LABS: ANION GAP 6 mmol/L (5-15); BLOOD UREA NITROGEN 19 mg/dL (7-18); CALCIUM 8.6 MG/DL (8.5-10.1); CARBON DIOXIDE 24 MMOL/L (21-32); CHLORIDE 110 MMOL/L (98-107); CREATININE 1.3 MG/DL (0.55-1.30); POTASSIUM 4.6 MMOL/L (3.5-5.1); SODIUM 140 MMOL/L (136-145)
[2019-06-06] MEDS ORDERED: NovoLOG Insulin Flexpen SUBQ SCH ×2 (06:00→16:30)
[2019-06-06] MEDS: HydrALAZINE 50mg tab NG SCH ×4 (06:00→21:23)
[2019-06-06] MEDS: cloNIDine 0.2mg Tab NG SCH ×3 (06:17→21:22)
[2019-06-06] MEDS: Lacri-Lube Opth Oint 3.5gm BOTH EYES SCH ×5 (06:30→21:00)
--- NOTE | 2019-06-06 06:34 | NUR ---
NURSE NOTES: Received lab result of Troponin I 0.087. Paged Dr. Lutz's office and spoke with Vance. Awaiting for callback. Addendum: 06/06/19 at 0748 by Julia Bailey RN Blood sugar taken 135 mg/dL. Paged Dr. Lutz's office and requested for Insulin sliding scale. Awaiting for callback. Will endorse to AM TESSA.
--- NOTE | 2019-06-06 07:30 | NUR ---
NURSE NOTES: Sent patient's medication to pharmacy. Patient is aware that his butalbital medication has bugs. Charge nurse made aware.
--- NOTE | 2019-06-06 07:38 | NUR ---
HAND-OFF: Report given to TESSA Red. Plan of care endorsed.
--- NOTE | 2019-06-06 07:40 | NUR ---
NURSE NOTES: Received report from TESSA Dumont. Patient in bed resting, no active s/s cardiac, respiratory distress noticed at this time. Patient on room air, ST with HR 119, AOx4. IV on left FA 20G, asymptomatic, patent, intact. Endorsed paged MD regarding troponin level, clarification for sliding scale, awaiting for callback. Bed in lowest position, side rails upx2, call light within reach. Will continue to monitor.
[2019-06-06 08:00] VITALS: BP 141/82
[2019-06-06] MEDS: Imdur 30mg tab ORAL SCH (08:34)
[2019-06-06] MEDS: Losartan 50mg tab ORAL SCH (08:35)
[2019-06-06] MEDS: Vitamin D 400 INTLU TAB ORAL SCH (08:35)
[2019-06-06] MEDS: sitaGLIPtin 25mg tab ORAL SCH (08:36)
[2019-06-06] MEDS: DULoxetine 30mg cap ORAL SCH (08:36)
[2019-06-06] MEDS: Aspirin EC 81mg tab ORAL SCH (08:37)
[2019-06-06] MEDS: Vitamin B Complex Tab ORAL SCH (08:38)
[2019-06-06] MEDS: Metoprolol 25mg tab ORAL SCH ×2 (08:38→21:04)
[2019-06-06] MEDS ORDERED: Isentress 400mg tab ORAL SCH (09:00)
[2019-06-06] MEDS: Levemir Flexpen SUBQ SCH ×2 (09:56→21:00)
[2019-06-06 12:00] VITALS: BP 119/69
--- NOTE | 2019-06-06 12:52 | NUR ---
CASE MANAGEMENT: INITIAL REVIEW 58 YR OLD MALE FROM HOME PMH: HIV; CAD; CKD; RESP. FAILURE CC: CHEST PAIN SI: ANEMIA / HTN URGENCY/ TACHYCARDIA 98.4 120 20 200/89 100%RA WBC 4.1; RBC 3.30; H/H 10.0/ 30.1; BUN 21; CRE 1.5; BG 251; ALK PHOS 176 IS: ASA PO X1 NITRO TOP X1 : 2E TELE UNIT DCP: RETURN HOME WHEN MEDICALLY CLEAR CASE MANAGEMENT: INITIAL REVIEW 06/06/19 SI: ANEMIA / HTN URGENCY/ TACHYCARDIA 98.4 120 20 200/89 100%RA WBC 4.2; RBC 3.06; H/H 9.4/ 28.0; BUN 19; CRE 1.5; BG 174; ALK PHOS 176 TROP 0.087 IS: IMDUR PO QD COZAAR PO QD LOPRESSOR PO Q12HR CLONIDINE NG Q8HR HYDRALAZINE NG Q8HR STARLIX PO TID SEROQUEL PO Q12HR FEOSOL PO QD FOLATE PO BID LEVEMIR SQ Q12HR VIRED PO QD ZETIA PO QHS LAMICTAL PO QHS NORVASC NG QD ASA PO QD CYMBALTA PO QD ALBUTEROL HHN Q6HR : 2E TELE UNIT DCP: RETURN HOME WHEN MEDICALLY CLEAR PLAN: VENOUS DUPLEX
--- NOTE | 2019-06-06 13:03 | Diagnostic Imaging Report ---
Indication: Chest pain Technique: One view of the chest Comparison: none Findings: Lungs and pleural spaces are clear. Heart size is normal. There is no significant interim change Impression: No acute process
[2019-06-06] MEDS: NovoLOG Insulin Flexpen SUBQ SCH ×3 (13:54→21:00)
--- NOTE | 2019-06-06 15:04 | Cardiac Electrophysiology PN ---
Subjective Subjective [id number] Objective Last 24 Hour Vital Signs Date Time Temp Pulse Resp B/P (MAP) Pulse Ox O2 Delivery O2 Flow Rate FiO2 06/06/19 13:51 119/69 06/06/19 13:51 119/69 06/06/19 12:00 85 06/06/19 12:00 98.0 88 20 119/69 (86) 100 06/06/19 09:00 Room Air 06/06/19 08:41 107 141/82 06/06/19 08:38 107 141/82 06/06/19 08:35 141/82 06/06/19 08:34 141/82 06/06/19 08:00 98.2 107 20 141/82 (101) 100 06/06/19 08:00 103 06/06/19 07:57 104 22 100 Room Air 21 06/06/19 07:57 102 20 100 Room Air 21 104 22 100 06/06/19 06:17 140/68 06/06/19 06:00 140/68 06/06/19 04:00 97.8 101 18 140/68 (92) 99 06/06/19 04:00 119 06/06/19 01:55 97.5 106 20 157/80 (105) 99 06/06/19 01:43 Room Air 06/05/19 23:40 104 06/05/19 23:05 98.7 120 16 159/78 100 Room Air 06/05/19 22:00 98.4 103 18 158/80 100 Room Air 06/05/19 20:40 98.4 112 18 178/80 100 Room Air 06/05/19 20:37 178/80 06/05/19 20:10 120 20 Room Air 06/05/19 20:10 98.4 120 20 200/89 100 Room Air 06/05/19 20:08 98.4 120 20 200/89 (126) 100 Room Air Intake and Output 06/05/19 06/06/19 19:00 07:00 Intake Total 70 ml Output Total 120 ml Balance -50 ml Intake Oral 60 ml IV Total 10 ml Output Urine Total 120 ml # Voids 2 # Bowel Movements 1 Laboratory Tests Test 06/05/19 20:15 06/06/19 04:45 06/06/19 10:50 06/06/19 13:30 White Blood Count 4.1 K/UL (4.8-10.8) L 4.2 K/UL (4.8-10.8) L Pending Red Blood Count 3.30 M/UL (4.70-6.10) L 3.06 M/UL (4.70-6.10) L Hemoglobin 10.0 G/DL (14.2-18.0) L 9.4 G/DL (14.2-18.0) L Hematocrit 30.1 % (42.0-52.0) L 28.0 % (42.0-52.0) L Mean Corpuscular Volume 91 FL (80-99) 91 FL (80-99) Mean Corpuscular Hemoglobin 30.4 PG (27.0-31.0) 30.6 PG (27.0-31.0) Mean Corpuscular Hemoglobin Concent 33.4 G/DL (32.0-36.0) 33.6 G/DL (32.0-36.0) Red Cell Distribution Width 12.9 % (11.6-14.8) 12.8 % (11.6-14.8) Platelet Count 197 K/UL (150-450) 177 K/UL (150-450) Mean Platelet Volume 5.0 FL (6.5-10.1) L 4.5 FL (6.5-10.1) L Neutrophils (%) (Auto) 49.6 % (45.0-75.0) 49.6 % (45.0-75.0) Lymphocytes (%) (Auto) 36.9 % (20.0-45.0) 35.7 % (20.0-45.0) Monocytes (%) (Auto) 10.6 % (1.0-10.0) H 10.9 % (1.0-10.0) H Eosinophils (%) (Auto) 2.1 % (0.0-3.0) 2.7 % (0.0-3.0) Basophils (%) (Auto) 0.8 % (0.0-2.0) 1.0 % (0.0-2.0) Sodium Level 139 MMOL/L (136-145) 140 MMOL/L (136-145) Potassium Level 4.2 MMOL/L (3.5-5.1) 4.6 MMOL/L (3.5-5.1) Chloride Level 106 MMOL/L (98-107) 110 MMOL/L (98-107) H Carbon Dioxide Level 23 MMOL/L (21-32) 24 MMOL/L (21-32) Anion Gap 11 mmol/L (5-15) 6 mmol/L (5-15) Blood Urea Nitrogen 21 mg/dL (7-18) H 19 mg/dL (7-18) H Creatinine 1.5 MG/DL (0.55-1.30) H 1.3 MG/DL (0.55-1.30) Estimat Glomerular Filtration Rate 47.9 mL/min (>60) 56.5 mL/min (>60) Glucose Level 251 MG/DL (74-106) H 174 MG/DL (74-106) H Calcium Level 8.9 MG/DL (8.5-10.1) 8.6 MG/DL (8.5-10.1) Total Bilirubin 0.2 MG/DL (0.2-1.0) Aspartate Amino Transf (AST/SGOT) 24 U/L (15-37) Alanine Aminotransferase (ALT/SGPT) 37 U/L (12-78) Alkaline Phosphatase 176 U/L (46-116) H Total Creatine Kinase 239 U/L (26-308) Creatine Kinase MB 3.1 NG/ML (0.0-3.6) Creatine Kinase MB Relative Index 1.2 Troponin I 0.000 ng/mL (0.000-0.056) 0.087 ng/mL (0.000-0.056) Total Protein 7.2 G/DL (6.4-8.2) Albumin 3.4 G/DL (3.4-5.0) Globulin 3.8 g/dL Albumin/Globulin Ratio 0.9 (1.0-2.7) L Hemoglobin A1c 6.1 % (4.3-6.0) H Magnesium Level 1.9 MG/DL (1.8-2.4) Lymphocytes Pending Percent CD3 Cells Pending Absolute CD3 Count Pending Percent CD4 Cells Pending Absolute CD4 Count Pending T-Lymphocyte CD4/CD8 Ratio Pending Percent CD8 Cells Pending Absolute CD8 Count Pending HIV-1 RNA (PCR) log10 Value Pending HIV-1 RNA Ultraquantitative (PCR) Pending D-Dimer < 0.19 mg/L Murray Vera MD Jun 06, 2019 15:04
[2019-06-06] MEDS ORDERED: Lexiscan 0.4mg/5ml syringe IV PRN (15:15)
[2019-06-06 16:00] VITALS: BP 131/72
--- NOTE | 2019-06-06 16:22 | History and Physical ---
History of Present Illness General Date patient seen: Jun 06, 2019 Reason for Hospitalization: Chest Pain Present Illness HPI Is a 58-year-old male with past medical history of CAD, and STEMI, CKD, diabetes mellitus type 2, history of CVA, seizure disorder, HIV on ART who presents with chest pain. The patient has had intermittent chest pain on exertion for the past few months and had been worked up by his paper conservator as an outpatient and was pending a coronary angiogram. Yesterday the patient began to experience left-sided crushing chest pain, with radiation to his left axilla, constant, 8 out of 10. He took an aspirin and 2 nitroglycerin and the chest pain finally resolved after 30 minutes. He drove himself to [facility]. In the ER the patient was afebrile with a temperature of 98.4 blood pressure of 200/89 respiration 20 pulse 120 and saturating 100% on room air. An EKG did not appear changed from previous though he has ST depressions in the precordial leads there is no evidence of acute ST segment elevation. Chest x-ray showed no acute process. D-dimer was negative. Initial troponin was 0 but on repeat it elevated .087. The patient's CBC was unremarkable. CMP remarkable for elevated creatinine of 1.3. The patient denied having any chest pain while in the emergency room. Allergies: No known drug allergies Medications: Reviewed Past medical history: See HPI Past surgical history Tracheostomy PEG tube Family history: Mother diabetes, father IA at 50 Social history: Tobacco 18-mduy-znth history, quit at age 25 Alcohol: Former drinker Drug use: None Allergies: Coded Allergies: No Known Allergies (Unverified , 02/05/13) Medication History Scheduled Acetaminophen* (Acetaminophen Extra Strength*), 500 MG ORAL Q6H, (Reported) Amlodipine Besylate (Norvasc), 10 MG NG DAILY Artificial Tears (Refresh Lacri-Lube Ointment), 1 APPLIC BOTH EYES AC+HS Aspirin Ec* (Aspirin Ec*), 81 MG ORAL DAILY Biotin (Biotin), 5,000 MCG PO DAILY, (Reported) Clonidine HCl (Clonidine HCl), 0.2 MG NG EVERY 8 HOURS Duloxetine Hcl* (Cymbalta*), 90 MG ORAL DAILY, (Reported) Etravirine* (Intelence*), 400 MG ORAL DAILY, (Reported) Ezetimibe (Zetia*), 10 MG ORAL BEDTIME, (Reported) Ferrous Sulfate* (Ferrous Sulfate*), 325 MG ORAL THREE TIMES A DAY, (Reported) Folic Acid (Folic Acid), 1 MG PO BID, (Reported) Hydralazine HCl (Hydralazine HCl), 50 MG NG Q8HR Insulin Aspart (Novolog Flexpen), 0 UNITS SUBQ EVERY 6 HOURS Insulin Detemir (Levemir Flexpen), 14 UNITS SUBQ Q12HR Ipratropium/Albuterol Sulfate (DuoNeb 0.5-3(2.5)mg/3ml), 3 ML HHN Q6HRT Isosorbide Mononitrate (Isosorbide Mononitrate Er), 30 MG PO DAILY, (Reported) Lamotrigine (Lamotrigine), 200 MG PO QHS, (Reported) Losartan Potassium* (Losartan Potassium*), 100 MG ORAL DAILY, (Reported) Metoprolol Tartrate (Metoprolol Tartrate), 25 MG ORAL Q12HR Nateglinide (Starlix), 120 MG ORAL THREE TIMES A DAY, (Reported) Quetiapine Fumarate* (Seroquel*), 25 MG ORAL Q12HR Raltegravir (Isentress), 400 MG ORAL EVERY 12 HOURS, (Reported) Sitagliptin* (Januvia*), 100 MG ORAL DAILY, (Reported) Tenofovir Disoproxil Fumarate* (Viread*), 300 MG ORAL DAILY, (Reported) Vitamin B Complex (Vitamin B Complex), 1 EACH PO DAILY, (Reported) Vitamin D (Vitamin D3), 400 UNITS ORAL DAILY, (Reported) [Patient's Own Med], 1 EA ORAL DAILY [Patient's Own Med], 1 EA ORAL BID [Patient's Own Med], 1 EA ORAL BID Scheduled PRN Butalb/Acetaminophen/Caffeine (Tpxpao-Lvgzujhk-Sdhm 50-325-40), 1 EACH PO BID PRN for For Pain, (Reported) Cetirizine Hcl* (Zyrtec*), 10 MG ORAL DAILY PRN for Itching, (Reported) Docusate Sodium (Docusate Sodium), 100 MG ORAL TWICE A DAY PRN for Constipation, (Reported) Miscellaneous Medications Guaifenesin (Mucinex), 100 MG PO, (Reported) Discontinued Medications Acetamin/Butalbital/Caffeine* (Fioricet*), 1 TAB ORAL Q8H PRN Discontinued Reason: Therapy completed Chlorhexidine Gluconate* (Hibiclens*), 1 APPLIC TOPIC DAILY@1999 Discontinued Reason: Therapy completed Hydralazine HCl (Hydralazine HCl), 10 MG IV Q4H PRN Discontinued Reason: Therapy completed Lorazepam (Lorazepam), 2 MG IV Q2H PRN Discontinued Reason: Therapy completed Patient History Healthcare decision maker Resuscitation status Advanced Directive on File Family History Family History: In first degree relatives is unremarkable Review of Systems Constitutional: Denies: see HPI, chills, sweats, fever, malaise, weakness, other Eye: Denies: see HPI, eye pain, blurred vision, tearing, double vision, nose pain, nose congestion, acuity changes, discharge, other ENT: Denies: see HPI, ear pain, ear discharge, nose pain, nose congestion, throat pain, throat swelling, mouth pain, hearing loss, nasal discharge, other Respiratory: Denies: see HPI, cough, orthopnea, shortness of breath, stridor, wheezing, [place], sputum, other Cardiovascular: Denies: see HPI, chest pain, edema, palpitations, syncope, PND , other Gastrointestinal: Denies: see HPI, abdominal pain, constipation, diarrhea, nausea, vomiting, melena, hematemesis, other Genitourinary: Denies: see HPI, discharge, dysuria, frequency, hematuria, pain , retention, incontinence, urgency, vag bleed/dc, other Musculoskeletal: Denies: see HPI, back pain, gout, joint pain, joint swelling, muscle pain, muscle stiffness, other Skin: Denies: see HPI, rash, change in color, change in hair/nails, dryness, lesions, other Psychiatric: Denies: see HPI, prior hx, anxiety, depressed feelings, emotional problems, SI, HI, hallucinations, other Neurological: Denies: see HPI, headache, numbness, paresthesia, seizure, tingling, tremors, focal weakness, syncope, dizziness, other Endocrine: Denies: see HPI, excessive sweating, flushing, intolerance to temperature, increased thirst, increased urine, unexplained weight loss, other Hematologic/Lymphatic: Denies: see HPI, anemia, blood clots, easy bleeding, easy bruising, swollen glands, diathesis, other Physical Exam General Appearance: WD/WN, no apparent distress, alert Lines, tubes and drains: peripheral HEENT: normocephalic, atraumatic, anicteric, mucous membranes moist, PERRL Neck: non-tender, normal alignment, supple, normal inspection Respiratory/Chest: chest wall non-tender, lungs clear, normal breath sounds, no respiratory distress, no accessory muscle use Cardiovascular/Chest: normal peripheral pulses, normal rate, regular rhythm, no JVD Abdomen: normal bowel sounds, non tender, soft, no organomegaly, no mass Extremities: normal range of motion, non-tender, normal inspection, no calf tenderness Skin Exam: normal pigmentation, warm/dry Neurologic: seat maker II-XII grossly normal, no motor/sensory deficits, alert, oriented x 3, responsive, normal mood/affect Lymphatic: anterior cervical - No lymphadenopathy Musculoskeletal: normal muscle bulk, no effusion Last 24 Hour Vital Signs Date Time Temp Pulse Resp B/P (MAP) Pulse Ox O2 Delivery O2 Flow Rate FiO2 06/06/19 13:51 119/69 06/06/19 13:51 119/69 06/06/19 12:00 85 06/06/19 12:00 98.0 88 20 119/69 (86) 100 06/06/19 09:00 Room Air 06/06/19 08:41 107 141/82 06/06/19 08:38 107 141/82 06/06/19 08:35 141/82 06/06/19 08:34 141/82 06/06/19 08:00 98.2 107 20 141/82 (101) 100 06/06/19 08:00 103 06/06/19 07:57 104 22 100 Room Air 21 06/06/19 07:57 102 20 100 Room Air 21 104 22 100 06/06/19 06:17 140/68 06/06/19 06:00 140/68 06/06/19 04:00 97.8 101 18 140/68 (92) 99 06/06/19 04:00 119 06/06/19 01:55 97.5 106 20 157/80 (105) 99 06/06/19 01:43 Room Air 06/05/19 23:40 104 06/05/19 23:05 98.7 120 16 159/78 100 Room Air 06/05/19 22:00 98.4 103 18 158/80 100 Room Air 06/05/19 20:40 98.4 112 18 178/80 100 Room Air 06/05/19 20:37 178/80 06/05/19 20:10 120 20 Room Air 06/05/19 20:10 98.4 120 20 200/89 100 Room Air 06/05/19 20:08 98.4 120 20 200/89 (126) 100 Room Air Intake and Output 06/05/19 06/06/19 19:00 07:00 Intake Total 70 ml Output Total 120 ml Balance -50 ml Intake Oral 60 ml IV Total 10 ml Output Urine Total 120 ml # Voids 2 # Bowel Movements 1 Laboratory Tests Test 06/05/19 20:15 06/06/19 04:45 06/06/19 10:50 06/06/19 13:30 White Blood Count 4.1 K/UL (4.8-10.8) L 4.2 K/UL (4.8-10.8) L Pending Red Blood Count 3.30 M/UL (4.70-6.10) L 3.06 M/UL (4.70-6.10) L Hemoglobin 10.0 G/DL (14.2-18.0) L 9.4 G/DL (14.2-18.0) L Hematocrit 30.1 % (42.0-52.0) L 28.0 % (42.0-52.0) L Mean Corpuscular Volume 91 FL (80-99) 91 FL (80-99) Mean Corpuscular Hemoglobin 30.4 PG (27.0-31.0) 30.6 PG (27.0-31.0) Mean Corpuscular Hemoglobin Concent 33.4 G/DL (32.0-36.0) 33.6 G/DL (32.0-36.0) Red Cell Distribution Width 12.9 % (11.6-14.8) 12.8 % (11.6-14.8) Platelet Count 197 K/UL (150-450) 177 K/UL (150-450) Mean Platelet Volume 5.0 FL (6.5-10.1) L 4.5 FL (6.5-10.1) L Neutrophils (%) (Auto) 49.6 % (45.0-75.0) 49.6 % (45.0-75.0) Lymphocytes (%) (Auto) 36.9 % (20.0-45.0) 35.7 % (20.0-45.0) Monocytes (%) (Auto) 10.6 % (1.0-10.0) H 10.9 % (1.0-10.0) H Eosinophils (%) (Auto) 2.1 % (0.0-3.0) 2.7 % (0.0-3.0) Basophils (%) (Auto) 0.8 % (0.0-2.0) 1.0 % (0.0-2.0) Sodium Level 139 MMOL/L (136-145) 140 MMOL/L (136-145) Potassium Level 4.2 MMOL/L (3.5-5.1) 4.6 MMOL/L (3.5-5.1) Chloride Level 106 MMOL/L (98-107) 110 MMOL/L (98-107) H Carbon Dioxide Level 23 MMOL/L (21-32) 24 MMOL/L (21-32) Anion Gap 11 mmol/L (5-15) 6 mmol/L (5-15) Blood Urea Nitrogen 21 mg/dL (7-18) H 19 mg/dL (7-18) H Creatinine 1.5 MG/DL (0.55-1.30) H 1.3 MG/DL (0.55-1.30) Estimat Glomerular Filtration Rate 47.9 mL/min (>60) 56.5 mL/min (>60) Glucose Level 251 MG/DL (74-106) H 174 MG/DL (74-106) H Calcium Level 8.9 MG/DL (8.5-10.1) 8.6 MG/DL (8.5-10.1) Total Bilirubin 0.2 MG/DL (0.2-1.0) Aspartate Amino Transf (AST/SGOT) 24 U/L (15-37) Alanine Aminotransferase (ALT/SGPT) 37 U/L (12-78) Alkaline Phosphatase 176 U/L (46-116) H Total Creatine Kinase 239 U/L (26-308) Creatine Kinase MB 3.1 NG/ML (0.0-3.6) Creatine Kinase MB Relative Index 1.2 Troponin I 0.000 ng/mL (0.000-0.056) 0.087 ng/mL (0.000-0.056) Total Protein 7.2 G/DL (6.4-8.2) Albumin 3.4 G/DL (3.4-5.0) Globulin 3.8 g/dL Albumin/Globulin Ratio 0.9 (1.0-2.7) L Hemoglobin A1c 6.1 % (4.3-6.0) H Magnesium Level 1.9 MG/DL (1.8-2.4) Lymphocytes Pending Percent CD3 Cells Pending Absolute CD3 Count Pending Percent CD4 Cells Pending Absolute CD4 Count Pending T-Lymphocyte CD4/CD8 Ratio Pending Percent CD8 Cells Pending Absolute CD8 Count Pending HIV-1 RNA (PCR) log10 Value Pending HIV-1 RNA Ultraquantitative (PCR) Pending D-Dimer < 0.19 mg/L FEU Height (Feet): 6 Height (Inches): 0.00 Weight (Pounds): 200 Medications Current Medications Medications (Trade) Dose Ordered Sig/Marquis Route PRN Reason Start Time Stop Time Status Last Admin Dose Admin Acetaminophen (Tylenol) 500 mg Q6H ORAL 06/06/19 02:00 07/06/19 01:59 06/06/19 13:52 Acetaminophen/ Butalbital/ Caffeine (Fioricet) 1 tab BIDPRN PRN ORAL pain 06/06/19 13:00 07/06/19 12:59 Albuterol/ Ipratropium (Albuterol/ Ipratropium) 3 ml Q6HRT HHN 06/06/19 01:00 06/11/19 00:59 06/06/19 07:57 Amlodipine Besylate (Norvasc) 10 mg DAILY NG 06/06/19 09:00 07/06/19 08:59 Artificial Tears (Lacri-Lube) 1 applic AC+HS BOTH EYES 06/06/19 06:30 07/06/19 06:29 Aspirin (Ecotrin) 81 mg DAILY ORAL 06/06/19 09:00 07/06/19 08:59 06/06/19 08:37 Cetirizine HCl (ZyrTEC) 10 mg DAILY PRN ORAL Itching 06/06/19 01:00 07/06/19 00:59 Clonidine HCl (Catapres tab) 0.2 mg EVERY 8 HOURS NG 06/06/19 06:00 07/06/19 05:59 06/06/19 06:17 Dextrose (Dextrose 50%) 25 ml Q30M PRN IV Hypoglycemia 06/06/19 12:00 07/06/19 11:59 Dextrose (Dextrose 50%) 50 ml Q30M PRN IV Hypoglycemia 06/06/19 12:00 07/06/19 11:59 Docusate Sodium (Colace) 100 mg TWICE A DAY PRN ORAL Constipation 06/06/19 01:00 07/06/19 00:59 Duloxetine HCl (Cymbalta) 90 mg DAILY ORAL 06/06/19 09:00 07/06/19 08:59 06/06/19 08:36 EZETIMIBE (Zetia) 10 mg BEDTIME ORAL 06/06/19 21:00 07/06/19 20:59 Ferrous Sulfate (Feosol) 325 mg THREE TIMES A DAY ORAL 06/06/19 09:00 07/06/19 08:59 06/06/19 13:50 Folic Acid (Folate) 1 mg BID ORAL 06/06/19 09:00 07/06/19 08:59 06/06/19 08:35 Guaifenesin (Robitussin) 100 mg DAILY PRN PO cough 06/06/19 01:30 07/06/19 01:29 Hydralazine HCl (Apresoline) 50 mg Q8HR NG 06/06/19 06:00 07/06/19 05:59 06/06/19 13:51 Insulin Aspart (NovoLOG) BEFORE MEALS AND HS SUBQ 06/06/19 11:30 07/06/19 16:29 06/06/19 13:54 Insulin Detemir (Levemir) 14 units Q12HR SUBQ 06/06/19 09:00 07/06/19 08:59 06/06/19 09:56 Isosorbide Mononitrate (Imdur) 30 mg DAILY ORAL 06/06/19 09:00 07/06/19 08:59 06/06/19 08:34 Lamotrigine (LaMICtal) 200 mg QHS ORAL 06/06/19 21:00 07/06/19 20:59 Losartan Potassium (Cozaar) 100 mg DAILY ORAL 06/06/19 09:00 07/06/19 08:59 06/06/19 08:35 Metoprolol Tartrate (Lopressor) 25 mg Q12HR ORAL 06/06/19 09:00 07/06/19 08:59 06/06/19 08:38 Nateglinide (Starlix) 120 mg THREE TIMES A DAY ORAL 06/06/19 09:00 07/06/19 08:59 06/06/19 13:50 Non-Formulary Medication (Non-Formulary Med) 1 ea DAILY ORAL 06/06/19 09:00 07/06/19 08:59 UNV Quetiapine Fumarate (SEROquel) 25 mg Q12HR ORAL 06/06/19 09:00 07/06/19 08:59 Raltegravir (Isentress) 400 mg EVERY 12 HOURS ORAL 06/06/19 09:00 07/06/19 08:59 UNV Regadenoson (Lexiscan) 0.4 mg ONCE PRN IV cardiology 06/06/19 15:15 06/07/19 23:59 Sitagliptin Phosphate (Januvia) 100 mg DAILY ORAL 06/06/19 09:00 07/06/19 08:59 06/06/19 08:36 Tenofovir Disoproxil Fumarate (Viread) 300 mg DAILY ORAL 06/06/19 09:00 07/06/19 08:59 UNV Vitamin B Complex (Vitamin B Complex) 1 tab DAILY ORAL 06/06/19 09:00 07/06/19 08:59 06/06/19 08:38 Vitamin D (Vitamin D) 400 intlu DAILY ORAL 06/06/19 09:00 07/06/19 08:59 06/06/19 08:35 Assessment/Plan Problem List: (1) History of IA (myocardial infarction) ICD Codes: I25.2 - Old myocardial infarction SNOMED: 225682408 (2) History of acute respiratory failure ICD Codes: Z87.09 - Personal history of other diseases of the respiratory system SNOMED: 565055281 (3) Hypertensive urgency ICD Codes: I16.0 - Hypertensive urgency SNOMED: 618627344 (4) Tachycardia ICD Codes: R00.0 - Tachycardia, unspecified SNOMED: 3361040 (5) Chest pain ICD Codes: R07.9 - Chest pain, unspecified SNOMED: 84708610 (6) CKD (chronic kidney disease) ICD Codes: N18.9 - Chronic kidney disease, unspecified SNOMED: 767010752 (7) HIV disease ICD Codes: B20 - Human immunodeficiency virus [HIV] disease SNOMED: 39450264 (8) Diabetes ICD Codes: E11.9 - Type 2 diabetes mellitus without complications SNOMED: 19416354 (9) Anxiety ICD Codes: F41.9 - Anxiety disorder, unspecified SNOMED: 31148735 (10) Uncontrolled type 2 diabetes mellitus with chronic kidney disease ICD Codes: E11.22 - Type 2 diabetes mellitus with diabetic chronic kidney disease; E11.65 - Type 2 diabetes mellitus with hyperglycemia SNOMED: 28944502, 750145919, 963907093 Status: stable Assessment/Plan: This is a 58-year-old male with a history of CAD, and STEMI, diabetes, former smoker, family history of IA who presents with chest pain at rest, now resolved. #Chest pain rule out ACS #History of CAD #History of NSTEMI #HTN > D- dimer, negative. Ruled out PE > CXR negative -Admit to telemetry -Trend troponins -2D echocardiogram -Check d-dimer - negative -Appreciate cardiology recommendations: Dr. Francois -Pharmacologic stress test -Aspirin 81 mg p.o. daily -Ezetimibe 10mg Po QHS (patient with a history of statin i-ntolerance, rhabdo) -Continue home clonidine 0.2 mg every 8 hours -Continue home losartan 100 mg p.o. daily -Continue metoprolol tartrate 25 mg p.o. every 12 hours #HIV on ART, compliant with medications -Check CD4 count and HIV RNA -Continue home Raltegravir 400mg PO Q12hr -Continue home Viread 300mg PO daily #Diabetes mellitus type 2 -Continue home Januvia 100 mg p.o. daily -Continue Nateglinide 120mg PO TID -Continue Levemir 14 units every 12 hours -Sliding scale insulin -Check hemoglobin A1c -Hypoglycemia protocol -Accu-Cheks before meals and at bedtime #CKD -Continue to monitor creatinine -Avoid nephrotoxins #Mood disorder -Continue lamotrigine 200 mg p.o. nightly -Continue Seroquel 25 mg p.o. every 12 hours #migraines -Continue fiorcet BID PRN headaches FENPPX DVTPPX: Heparin subcu every 8 hours GI PPX: None needed Fluids: None Diet: Cardiac diet Lines: None PT/OT: pending Dispo: Home when above issues resolved 72 minutes spent on this encounter. Discussed with RN, patient, and cardiology. > 50% spent on counseling and care coordination. Time of note may not reflect time patient was seen. Josh Peres D.O. Jun 06, 2019 16:22
[2019-06-06] MEDS: INTELENCE 200 MG ORAL SCH (17:30)
[2019-06-06] MEDS: ISENTRESS 400 MG ORAL SCH (17:30)
--- NOTE | 2019-06-06 18:45 | Consultation ---
DATE OF CONSULTATION: 06/06/2019 CARDIOLOGY CONSULTATION CONSULTING PHYSICIAN: Murray Francois M.D. REFERRING PHYSICIAN: Mj Lutz M.D. REASON FOR CONSULTATION: Chest pain. HISTORY OF PRESENT ILLNESS: The patient is a 58-year-old gentleman with history of prior myocardial infarction with troponin of 10 when he was at [facility] in February 2019. At that time, he had a prolonged hospital course that ended up in tracheostomy and PEG placement. Subsequently, trach and PEG were removed. The patient presented to the emergency room with intermittent episodes of chest pain. The patient stated that he was supposed to have a cardiac catheterization as an outpatient with Cardiology, but that was 6 months ago. The patient has been using Isordil. While he was left-sided chest pain initially in the left axilla and became diaphoretic and short of breath. The patient took aspirin and nitroglycerin without significant relief. The patient came to the emergency room and Cardiology consultation was obtained for further evaluation and management. REVIEW OF SYSTEMS: Negative other than what was mentioned in the history of present illness. PAST MEDICAL HISTORY: As mentioned above. FAMILY HISTORY: Noncontributory. SOCIAL HISTORY: He continues to smoke and lives at home. PHYSICAL EXAMINATION: VITAL SIGNS: Show blood pressure of 119/67, pulse 88, respirations 18, temperature 98. HEAD AND NECK: Showed no JVD. LUNGS: Clear. CARDIOVASCULAR: Regular S1 and S2 with no gallop or murmur. His tracheostomy site is closed. ABDOMEN: Soft. EXTREMITIES: Without pitting edema. LABORATORY AND DIAGNOSTIC DATA: His EKG showed sinus rhythm with nonspecific ST-T abnormalities. Labs show white count of 4.2, hemoglobin 9.4, hematocrit 28, and platelet count 177. Sodium 140, potassium is 4.6, BUN of 19, creatinine 1.3, glucose of 174. Troponin is negative at nursing 1.087. His urine toxicology screen is positive for barbiturates that was in April. ASSESSMENT AND PLAN: 1. Chest pain and troponin elevation in a patient with history of coronary artery disease, prior myh-QR-[id number] myocardial infarction. EKG showed lateral ST-T wave abnormalities. At this time, we will completely rule out MD protocol with aspirin, beta-kimberly, and statin as well as Imdur. Repeat EKG and we will get an echocardiogram for further evaluation. 2. Hypertension, on Imdur 30 mg daily, metoprolol 25 mg b.i.d., and Cozaar 100 mg daily as well as Norvasc 10 mg daily. 3. Diabetes, on insulin. 4. HIV, on anti-retroviral therapy. 5. History of respiratory failure, status post tracheostomy that was resolved. 6. History of dysphagia, status post PEG placement that was resolved. Thank you very much for allowing me to participate in the care of this patient. Please do not hesitate to contact me for any questions regarding my evaluation. Murray Francois M.D. DR: CORNELIA JOB#: [id number] CC:
--- NOTE | 2019-06-06 19:30 | NUR ---
Received report from Teofilo ZARATE. Pt is AO x4. Calm and comfortable. Denies any discomfort or pain. Bed is locked and alarm is on. Call light is within reach.
--- NOTE | 2019-06-06 19:43 | NUR ---
HAND-OFF: Report given to TESSA Jordan.
[2019-06-06 20:00] VITALS: BP 144/78
[2019-06-06] MEDS: Heparin 5000 units/ml inj SUBQ SCH (22:00)
--- NOTE | 2019-06-06 23:23 | Diagnostic Imaging Report ---
APPROVED REPORT CPT Code: 27732 Present Symptoms Lower Extremity Pain: BILATERAL: Imaging reveals a patent deep venous system bilaterally. There is no evidence of thrombus within the femoral, popliteal or tibial segments. The greater saphenous veins are also within normal limits. Doppler indicates normal spontaneous flow within these segments.
[2019-06-07] MEDS: Albuterol/Ipratropium 3ml neb HHN SCH ×4 (01:00→19:37)
[2019-06-07] MEDS: Acetaminophen 500mg (ES) tab ORAL SCH ×4 (02:00→20:54)
[2019-06-07 03:06] LABS: BASOPHILS % (AUTO) 0.8 % (0.0-2.0); EOSINOPHILS % (AUTO) 2.2 % (0.0-3.0); HEMATOCRIT 28.8 % (42.0-52.0); HEMOGLOBIN 9.6 G/DL (14.2-18.0); LYMPHOCYTES % (AUTO) 31.4 % (20.0-45.0); MEAN CORPUSCULAR VOLUME 91 FL (80-99); NEUTROPHILS % (AUTO) 55.6 % (45.0-75.0); PLATELET COUNT 173 K/UL (150-450); RED BLOOD COUNT 3.18 M/UL (4.70-6.10); RED CELL DISTRIBUTION WIDTH 12.8 % (11.6-14.8); WHITE BLOOD COUNT 4.6 K/UL (4.8-10.8)
[2019-06-07 03:27] LABS: ANION GAP 7 mmol/L (5-15); BLOOD UREA NITROGEN 21 mg/dL (7-18); CALCIUM 8.3 MG/DL (8.5-10.1); CARBON DIOXIDE 24 MMOL/L (21-32); CHLORIDE 110 MMOL/L (98-107); CHOLESTEROL 152 MG/DL (< 200); CREATININE 1.4 MG/DL (0.55-1.30); HDL CHOLESTEROL 34 MG/DL (40-60); PHOSPHORUS 3.3 MG/DL (2.5-4.9); SODIUM 141 MMOL/L (136-145); TRIGLYCERIDES 172 MG/DL (30-150)
[2019-06-07] MEDS: Heparin 5000 units/ml inj SUBQ SCH ×3 (06:00→22:00)
[2019-06-07] MEDS: Lacri-Lube Opth Oint 3.5gm BOTH EYES SCH ×2 (06:30→11:30)
[2019-06-07] MEDS: NovoLOG Insulin Flexpen SUBQ SCH ×4 (06:37→21:03)
[2019-06-07] MEDS: HydrALAZINE 50mg tab NG SCH ×3 (06:38→22:00)
[2019-06-07] MEDS: cloNIDine 0.2mg Tab NG SCH ×2 (06:38→13:20)
--- NOTE | 2019-06-07 07:50 | NUR ---
HAND-OFF: Report given to Abigail ZARATE.
--- NOTE | 2019-06-07 07:52 | NUR ---
NURSE NOTES: Patient received from Julian. Patient stable eating sleeping in bed. No s/sx of distress. RR even and unlabored on RA. Side rails up x2, bed low and locked. Sitter at bedside. Will continue to monitor.
[2019-06-07 08:00] VITALS: BP 127/67
[2019-06-07] MEDS: Levemir Flexpen SUBQ SCH ×2 (09:00→21:01)
--- NOTE | 2019-06-07 09:16 | Cardiac Electrophysiology PN ---
Assessment/Plan Assessment/Plan 1. Chest pain in a patient with history of prior [id number] myocardial infarction. EKG showed lateral ST-T wave abnormalities. 3 out of 4 troponins are negative. Continue aspirin, beta-kimberly, statin and Imdur. Echocardiogram showed Nl EF. Stress test pending today 2. Hypertension, on Imdur 30 daily, metoprolol 25 b.i.d., Cozaar 100 daily and Norvasc 10 daily. 3. Diabetes, on insulin. 4. HIV, on anti-retroviral therapy. 5. History of respiratory failure, status post tracheostomy that was resolved. 6. History of dysphagia, status post PEG placement that was resolved DW RN Subjective Subjective Scheduled for nuclear stress test today. No CP in SR overnight Objective Last 24 Hour Vital Signs Date Time Temp Pulse Resp B/P (MAP) Pulse Ox O2 Delivery O2 Flow Rate FiO2 06/07/19 06:38 115/71 06/07/19 06:38 115/71 06/07/19 04:00 80 06/07/19 00:00 90 06/06/19 21:23 144/72 06/06/19 21:22 144/72 06/06/19 21:04 92 141/60 06/06/19 21:00 Room Air 06/06/19 20:02 92 18 98 Room Air 21 06/06/19 20:00 82 06/06/19 20:00 98.5 92 18 144/78 (100) 100 06/06/19 16:00 98.2 85 20 131/72 (91) 100 06/06/19 16:00 84 06/06/19 13:51 119/69 06/06/19 13:51 119/69 06/06/19 12:00 85 06/06/19 12:00 98.0 88 20 119/69 (86) 100 Intake and Output 06/06/19 06/07/19 18:59 06:59 Intake Total 1470 ml 320 ml Balance 1470 ml 320 ml Intake Oral 1470 ml 320 ml # Voids 6 2 # Bowel Movements 1 Laboratory Tests Test 06/06/19 10:50 06/06/19 13:30 06/06/19 18:45 06/07/19 03:00 White Blood Count Pending 4.6 K/UL (4.8-10.8) L Lymphocytes Pending Percent CD3 Cells Pending Absolute CD3 Count Pending Percent CD4 Cells Pending Absolute CD4 Count Pending T-Lymphocyte CD4/CD8 Ratio Pending Percent CD8 Cells Pending Absolute CD8 Count Pending HIV-1 RNA (PCR) log10 Value Pending HIV-1 RNA Ultraquantitative (PCR) Pending D-Dimer < 0.19 mg/L FEU Troponin I 0.042 ng/mL (0.000-0.056) 0.020 ng/mL (0.000-0.056) Red Blood Count 3.18 M/UL (4.70-6.10) L Hemoglobin 9.6 G/DL (14.2-18.0) L Hematocrit 28.8 % (42.0-52.0) L Mean Corpuscular Volume 91 FL (80-99) Mean Corpuscular Hemoglobin 30.2 PG (27.0-31.0) Mean Corpuscular Hemoglobin Concent 33.3 G/DL (32.0-36.0) Red Cell Distribution Width 12.8 % (11.6-14.8) Platelet Count 173 K/UL (150-450) Mean Platelet Volume 4.4 FL (6.5-10.1) L Neutrophils (%) (Auto) 55.6 % (45.0-75.0) Lymphocytes (%) (Auto) 31.4 % (20.0-45.0) Monocytes (%) (Auto) 10.0 % (1.0-10.0) Eosinophils (%) (Auto) 2.2 % (0.0-3.0) Basophils (%) (Auto) 0.8 % (0.0-2.0) Sodium Level 141 MMOL/L (136-145) Potassium Level 5.0 MMOL/L (3.5-5.1) Chloride Level 110 MMOL/L (98-107) H Carbon Dioxide Level 24 MMOL/L (21-32) Anion Gap 7 mmol/L (5-15) Blood Urea Nitrogen 21 mg/dL (7-18) H Creatinine 1.4 MG/DL (0.55-1.30) H Estimat Glomerular Filtration Rate 51.9 mL/min (>60) Glucose Level 149 MG/DL (74-106) H Calcium Level 8.3 MG/DL (8.5-10.1) L Phosphorus Level 3.3 MG/DL (2.5-4.9) Magnesium Level 1.9 MG/DL (1.8-2.4) Pro-B-Type Natriuretic Peptide 1329 pg/mL (0-125) H Triglycerides Level 172 MG/DL (30-150) H Cholesterol Level 152 MG/DL (< 200) LDL Cholesterol 92 mg/dL (<100) HDL Cholesterol 34 MG/DL (40-60) L Cholesterol/HDL Ratio 4.5 (3.3-4.4) H Objective HEAD AND NECK: No JVD. LUNGS: Clear. CARDIOVASCULAR: Regular S1 and S2 with no gallop or murmur. His tracheostomy site is closed. ABDOMEN: Soft. EXTREMITIES: Without pitting edema. Murray Francois MD Jun 07, 2019 09:16
--- NOTE | 2019-06-07 09:30 | NUR ---
NURSE NOTES: Patient returned from first part of cardiac stress test. 2D echo now being performed.
[2019-06-07] MEDS: Imdur 30mg tab ORAL SCH (09:35)
[2019-06-07] MEDS: DULoxetine 30mg cap ORAL SCH (09:35)
[2019-06-07] MEDS: Losartan 50mg tab ORAL SCH (09:36)
[2019-06-07] MEDS: Metoprolol 25mg tab ORAL SCH ×2 (09:37→20:54)
[2019-06-07] MEDS: Aspirin EC 81mg tab ORAL SCH (09:37)
[2019-06-07] MEDS: sitaGLIPtin 25mg tab ORAL SCH (09:37)
[2019-06-07] MEDS: Vitamin B Complex Tab ORAL SCH (09:37)
[2019-06-07] MEDS: ISENTRESS 400 MG ORAL SCH ×2 (09:38→17:39)
[2019-06-07] MEDS: INTELENCE 200 MG ORAL SCH ×2 (09:38→17:39)
[2019-06-07] MEDS: Vitamin D 400 INTLU TAB ORAL SCH (09:38)
--- NOTE | 2019-06-07 10:00 | NUR ---
CASE MANAGEMENT: REVIEW 06/07/19 SI: HTN URGENCY/ TACHYCARDIA PMH: PR; ACUTE RESP FAILURE 98.4 120 20 200/89 100%RA WBC 4.6; RBC 3.18; H/H 9.6/ 28.8; BUN 21; CRE 1.4; BG 149; BNP 1329; TROP 0.087-0.020 IS: HEPARIN SQ Q8HR IMDUR PO QD COZAAR PO QD LOPRESSOR PO Q12HR CLONIDINE NG Q8HR HYDRALAZINE NG Q8HR NORVASC NG QD STARLIX PO TID LEVEMIR SQ Q12HR NOVOLOG SQ AC&HS SEROQUEL PO Q12HR FEOSOL PO QD FOLATE PO BID VIREAD PO QD ZETIA PO QHS LAMICTAL PO QHS ASA PO QD CYMBALTA PO QD ALBUTEROL HHN Q6HR ZETIA PO HS : 2E TELE UNIT DCP: RETURN HOME WHEN MEDICALLY CLEAR PLAN: NIXON SCAN TODAY
[2019-06-07 12:00] VITALS: BP 120/54
--- NOTE | 2019-06-07 12:00 | NUR ---
NURSE NOTES: Stress test part 2 complete with no complication. Tray ordered.
--- NOTE | 2019-06-07 13:15 | NUR ---
Social Service Note SW attempted to meet with patient to assess for homelessness. SW familiar with patient from previous admissions. Patient had prior SNF stay and is currently living in his car. Patient continues to state he has a section 8 voucher however hasn't located a suitable housing unit. Patient stated he was tired from morning tests and asked SW to come back at a later time. Will follow up.
[2019-06-07] MEDS: Docusate 100mg cap ORAL PRN (13:19)
--- NOTE | 2019-06-07 13:22 | NUR ---
NM Myocardial Perfusion scan complete.
--- NOTE | 2019-06-07 14:42 | Diagnostic Imaging Report ---
Indications: Chest pain Technique: Single day single isotope protocol utilized. Initially, resting images obtained using IV administration 10.7 millicuries 99M technetium Myoview. Subsequently, patient underwent lexiscan stress testing. See cardiology report for details. During Puja infusion, IV administration 31.5 mCi 99 M technetium Myoview. SPECT and planar images obtained. SPECT images gated to 8 phases of the cardiac cycle were also obtained, and reformatted into cine images for evaluation of ejection fraction. Comparison: none Findings: Presence or absence of symptoms during infusion is not described on the cardiology report. Per cardiology report, resting EKG demonstrates normal sinus rhythm, with ST abnormalities suggesting possible inferolateral ischemia. Presence or absence of ST changes during infusion is not described. Imaging demonstrates normal poststress perfusion. No fixed nor reversible poststress perfusion defects are demonstrated. No left ventricular dilatation. Calculated post stress ejection fraction 52%. Gated images demonstrate no evidence of wall motion abnormality Impression: Nonischemic clinical response to pharmacologic stress, per cardiology report Nonischemic electrocardiographic response to pharmacologic stress, per cardiology report No imaging findings to suggest ischemia, at level of stress achieved. Calculated post stress ejection fraction 52%
[2019-06-07 16:00] VITALS: BP 154/81
--- NOTE | 2019-06-07 16:19 | General Progress Note ---
Assessment/Plan Problem List: (1) History of [place] (myocardial infarction) ICD Codes: I25.2 - Old myocardial infarction SNOMED: 711081879 (2) History of acute respiratory failure ICD Codes: Z87.09 - Personal history of other diseases of the respiratory system SNOMED: 066870622 (3) Hypertensive urgency ICD Codes: I16.0 - Hypertensive urgency SNOMED: 565822138 (4) Tachycardia ICD Codes: R00.0 - Tachycardia, unspecified SNOMED: 4241668 (5) Chest pain ICD Codes: R07.9 - Chest pain, unspecified SNOMED: 58703654 (6) CKD (chronic kidney disease) ICD Codes: N18.9 - Chronic kidney disease, unspecified SNOMED: 919934527 (7) HIV disease ICD Codes: B20 - Human immunodeficiency virus [HIV] disease SNOMED: 53496140 (8) Diabetes ICD Codes: E11.9 - Type 2 diabetes mellitus without complications SNOMED: 55057002 (9) Anxiety ICD Codes: F41.9 - Anxiety disorder, unspecified SNOMED: 78960412 (10) Uncontrolled type 2 diabetes mellitus with chronic kidney disease ICD Codes: E11.22 - Type 2 diabetes mellitus with diabetic chronic kidney disease; E11.65 - Type 2 diabetes mellitus with hyperglycemia SNOMED: 96935310, 245187287, 471163171 Status: stable Assessment/Plan: This is a 58-year-old male with a history of CAD, and STEMI, diabetes, former smoker, family history of [place] who presents with chest pain at rest, now resolved. #Chest pain rule out ACS #History of CAD #History of NSTEMI #HTN > D- dimer, negative. Ruled out PE > CXR negative > Echocardiogram normal > Opponent downtrending .020 -Admit to telemetry -Appreciate cardiology recommendations: Dr. Francois -Pharmacologic stress test today -Aspirin 81 mg p.o. daily -Ezetimibe 10mg Po QHS (patient with a history of statin i-ntolerance, rhabdo) -Discontinue home clonidine 0.2 mg every 8 hours as patient is not taking this at home -Discontinue amlodipine as patient is not taking this at home and blood pressure controlled inpatient -Continue home losartan 100 mg p.o. daily -Continue metoprolol tartrate 25 mg p.o. every 12 hours #HIV on ART, compliant with medications -Check CD4 count and HIV RNA - pending -Continue home Isentress and Intelence #Diabetes mellitus type 2 -Continue home Januvia 100 mg p.o. daily -Continue Nateglinide 120mg PO TID -Continue Levemir 14 units every 12 hours -Sliding scale insulin -Check hemoglobin A1c -Hypoglycemia protocol -Accu-Cheks before meals and at bedtime #CKD - stable -Continue to monitor creatinine -Avoid nephrotoxins #Mood disorder -Continue lamotrigine 200 mg p.o. nightly -discontinue Seroquel 25 mg p.o. every 12 hours-patient states he is no longer taking this #migraines -Continue fiorcet BID PRN headaches #Normocytic anemia -Iron studies and B12 folate FENPPX DVTPPX: Heparin subcu every 8 hours GI PPX: None needed Fluids: None Diet: Cardiac diet Lines: None PT/OT: pending Dispo: Home when above issues resolved 37 minutes spent on this encounter. Discussed with RN, patient, and cardiology. > 50% spent on counseling and care coordination. Time of note may not reflect time patient was seen. Subjective Date patient seen: Jun 07, 2019 Constitutional: Denies: chills, diaphoresis, fever, malaise, weakness, other HEENT: Denies: eye pain, blurred vision, tearing, double vision, ear pain, ear discharge, nose pain, nose congestion, throat pain, throat swelling, mouth pain , mouth swelling, other Cardiovascular: Denies: chest pain, edema, irregular heart rate, lightheadedness, palpitations, syncope, other Respiratory: Denies: cough, orthopnea, shortness of breath, SOB with excertion , SOB at rest, sputum, stridor, wheezing, other Gastrointestinal/Abdominal: Denies: abdomen distended, abdominal pain, black stools, tarry stools, blood in stool, constipated, diarrhea, difficulty swallowing, nausea, poor appetite, poor fluid intake, rectal bleeding, vomiting , other Genitourinary: Denies: burning, discharge, frequency, flank pain, hematuria, incontinence, pain, urgency, other Neurologic/Psychiatric: Denies: anxiety, depressed, emotional problems, headache, numbness, paresthesia, pre-existing deficit, seizure, tingling, tremors, weakness, other Endocrine: Denies: excessive sweating, flushing, intolerance to cold, intolerance to heat, increased hunger, increased thirst, increased urine, unexplained weight gain, unexplained weight loss, other Hematologic/Lymphatic: Denies: anemia, easy bleeding, easy bruising, other Allergies: Coded Allergies: No Known Allergies (Unverified , 02/05/13) Subjective No acute events overnight per nursing Chest pain: No further episodes of chest pain. The patient is pending a pharmacologic stress test today. He denies any fevers chills cough or shortness of breath. He has no other complaints Objective Last 24 Hour Vital Signs Date Time Temp Pulse Resp B/P (MAP) Pulse Ox O2 Delivery O2 Flow Rate FiO2 06/07/19 13:21 120/54 06/07/19 13:20 120/54 06/07/19 12:00 82 06/07/19 12:00 97.7 81 20 120/54 (76) 98 06/07/19 10:18 98.5 06/07/19 09:37 89 115/71 06/07/19 09:36 115/71 06/07/19 09:35 115/71 06/07/19 09:00 Room Air 06/07/19 08:00 86 06/07/19 08:00 98.0 86 18 127/67 (87) 98 06/07/19 07:44 89 18 98 Room Air 21 06/07/19 06:38 115/71 06/07/19 06:38 115/71 06/07/19 04:00 80 06/07/19 00:00 90 06/06/19 21:23 144/72 06/06/19 21:22 144/72 06/06/19 21:04 92 141/60 06/06/19 21:00 Room Air 06/06/19 20:02 92 18 98 Room Air 21 06/06/19 20:00 82 06/06/19 20:00 98.5 92 18 144/78 (100) 100 Intake and Output 06/06/19 06/07/19 19:00 07:00 Intake Total 1470 ml 320 ml Balance 1470 ml 320 ml Intake Oral 1470 ml 320 ml # Voids 6 2 # Bowel Movements 1 Laboratory Tests 06/06/19 18:45: Troponin I 0.042 06/07/19 03:00: Troponin I 0.020, White Blood Count 4.6L, Red Blood Count 3.18L, Hemoglobin 9.6L , Hematocrit 28.8L, Mean Corpuscular Volume 91, Mean Corpuscular Hemoglobin 30.2 , Mean Corpuscular Hemoglobin Concent 33.3, Red Cell Distribution Width 12.8, Platelet Count 173, Mean Platelet Volume 4.4L, Neutrophils (%) (Auto) 55.6, Lymphocytes (%) (Auto) 31.4, Monocytes (%) (Auto) 10.0, Eosinophils (%) (Auto) 2.2, Basophils (%) (Auto) 0.8, Sodium Level 141, Potassium Level 5.0, Chloride Level 110H, Carbon Dioxide Level 24, Anion Gap 7, Blood Urea Nitrogen 21H, Creatinine 1.4H, Estimat Glomerular Filtration Rate 51.9, Glucose Level 149H, Calcium Level 8.3L, Phosphorus Level 3.3, Magnesium Level 1.9, Pro-B-Type Natriuretic Peptide 1329H, Triglycerides Level 172H, Cholesterol Level 152, LDL Cholesterol 92, HDL Cholesterol 34L, Cholesterol/HDL Ratio 4.5H Height (Feet): 6 Height (Inches): 0.00 Weight (Pounds): 200 General Appearance: WD/WN, no apparent distress, alert EENT: PERRL/EOMI, normal ENT inspection, TMs normal Neck: non-tender, normal alignment, supple Cardiovascular: normal peripheral pulses, normal rate, regular rhythm, no JVD Respiratory/Chest: chest wall non-tender, lungs clear, normal breath sounds, no respiratory distress, no accessory muscle use Abdomen: normal bowel sounds, non tender, soft, no organomegaly, no mass Extremities: normal range of motion, non-tender, normal inspection Edema: other - No lower extremity edema bilaterally 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 Jun 07, 2019 16:19
--- NOTE | 2019-06-07 19:24 | NUR ---
HAND-OFF: Report given to Melissa Barry.Patient stable, sitting in chair.
--- NOTE | 2019-06-07 19:36 | NUR ---
NURSE NOTES: received report from TESSA Hayes, patient in stable condition, AOx4, denies pain at this time, Iv left forearm g 20, ambulatory, in good mood, talkative, bed lowest position, side rails upx2, call light within reach, will continue to monitor and reassess.
[2019-06-07 20:00] VITALS: BP 121/57
[2019-06-08] MEDS: Albuterol/Ipratropium 3ml neb HHN SCH ×4 (01:26→19:00)
[2019-06-08] MEDS: Acetaminophen 500mg (ES) tab ORAL SCH ×4 (02:00→21:07)
[2019-06-08] MEDS: Heparin 5000 units/ml inj SUBQ SCH ×3 (06:00→22:00)
[2019-06-08] MEDS: NovoLOG Insulin Flexpen SUBQ SCH ×4 (06:30→21:12)
[2019-06-08 06:32] LABS: HEMATOCRIT 29.3 % (42.0-52.0); HEMOGLOBIN 9.8 G/DL (14.2-18.0); MEAN CORPUSCULAR VOLUME 91 FL (80-99); PLATELET COUNT 171 K/UL (150-450); RED BLOOD COUNT 3.21 M/UL (4.70-6.10); RED CELL DISTRIBUTION WIDTH 12.6 % (11.6-14.8); WHITE BLOOD COUNT 4.6 K/UL (4.8-10.8)
[2019-06-08] MEDS: HydrALAZINE 50mg tab NG SCH ×3 (06:40→21:35)
[2019-06-08 06:41] LABS: ANION GAP 7 mmol/L (5-15); BLOOD UREA NITROGEN 24 mg/dL (7-18); CALCIUM 8.8 MG/DL (8.5-10.1); CARBON DIOXIDE 27 MMOL/L (21-32); CHLORIDE 110 MMOL/L (98-107); CREATININE 1.5 MG/DL (0.55-1.30); POTASSIUM 5.6 MMOL/L (3.5-5.1); SODIUM 143 MMOL/L (136-145)
--- NOTE | 2019-06-08 07:21 | NUR ---
NURSE NOTES: Patient received form Aditi Barry RN. Patient sitting in bed eating breakfast. No complaints at this time. No s/sx of distress, RR even and unlabored on RA. Side rails up x2, bed low and locked. Will continue to monitor.
--- NOTE | 2019-06-08 07:22 | NUR ---
HAND-OFF: Report given to TESSA Hayes, patient in stable condition, plan of care endorsed..
[2019-06-08 07:29] LABS: % IRON SATURATION 23 % (15-50); IRON 47 ug/dL (50-175); TOTAL IRON BINDING CAPACITY 201 ug/dL (250-450)
[2019-06-08 07:30] LABS: FERRITIN 134 NG/ML (8-388)
[2019-06-08 08:00] VITALS: BP 112/57
[2019-06-08] MEDS: sitaGLIPtin 25mg tab ORAL SCH (08:42)
[2019-06-08] MEDS: Losartan 50mg tab ORAL SCH (08:43)
[2019-06-08] MEDS: Vitamin D 400 INTLU TAB ORAL SCH (08:43)
[2019-06-08] MEDS: Aspirin EC 81mg tab ORAL SCH (08:43)
[2019-06-08] MEDS: Vitamin B Complex Tab ORAL SCH (08:43)
[2019-06-08] MEDS: Imdur 30mg tab ORAL SCH (08:44)
[2019-06-08] MEDS: Metoprolol 25mg tab ORAL SCH ×2 (08:44→21:05)
[2019-06-08] MEDS: DULoxetine 30mg cap ORAL SCH (08:45)
[2019-06-08] MEDS: INTELENCE 200 MG ORAL SCH ×2 (08:46→17:34)
[2019-06-08] MEDS: ISENTRESS 400 MG ORAL SCH ×2 (08:46→17:34)
[2019-06-08] MEDS: Levemir Flexpen SUBQ SCH ×2 (08:48→21:22)
--- NOTE | 2019-06-08 09:44 | NUR ---
CASE MANAGEMENT: REVIEW 06/08/19 SI: HTN URGENCY/ TACHYCARDIA PMH: IA; ACUTE RESP FAILURE 97.9 88 18 112/57 99%RA TIBC 201; FOLATE 75.4 06/07 BNP 1329 IS: HEPARIN SQ Q8HR IMDUR PO QD COZAAR PO QD LOPRESSOR PO Q12HR CLONIDINE NG Q8HR HYDRALAZINE NG Q8HR NORVASC NG QD STARLIX PO TID LEVEMIR SQ Q12HR NOVOLOG SQ AC&HS SEROQUEL PO Q12HR FEOSOL PO QD FOLATE PO BID VIREAD PO QD ZETIA PO QHS LAMICTAL PO QHS ASA PO QD CYMBALTA PO QD ALBUTEROL HHN Q6HR ZETIA PO HS : 2E TELE UNIT DCP: RETURN HOME WHEN MEDICALLY CLEAR PLAN: DISCHARGE WHEN MEDICALLY CLEARED
--- NOTE | 2019-06-08 10:01 | NUR ---
HOMELESS COORDINATOR Hc familiar with patient from previous admissions. HC spoke with patient and patient is alert and oriented. Patient has been here before and is still currently living in his car.Patient had prior SNF placement. Patient states he has been homeless for two years due to having a stroke and being unable to work. Patient states he receives $1,700 in disability. Patient states he still has a section 8 voucher and is still looking for an apartment. Patient states he does not suffer from substance abuse. Patient states he suffers from depression and does not want resources because he is currently seeing a psychologist for that. Patient states he will return to his car upon discharge. Patients states he would make his own follow-up appointment. All resources will be provided to nurse upon discharge. Patient continues to require medical intervention. Will continue to monitor and assist as needed.
[2019-06-08 12:00] VITALS: BP 130/61
--- NOTE | 2019-06-08 12:20 | NUR ---
NURSE NOTES: Dr. Choco Mcekon aware that patient is positive for MRSA of the nares.
[2019-06-08] MEDS ORDERED: Omnipaue 350mg/ml 100ml vial INJ PRN (12:45)
[2019-06-08 13:12] LABS: ANION GAP 6 mmol/L (5-15); BLOOD UREA NITROGEN 26 mg/dL (7-18); CALCIUM 8.5 MG/DL (8.5-10.1); CARBON DIOXIDE 27 MMOL/L (21-32); CHLORIDE 107 MMOL/L (98-107); CREATININE 1.6 MG/DL (0.55-1.30); POTASSIUM 4.8 MMOL/L (3.5-5.1); SODIUM 140 MMOL/L (136-145)
[2019-06-08] MEDS: Pseudoephedrine 30mg tab ORAL PRN (13:35)
[2019-06-08] MEDS: guaiFENesin 100mg/5ml Liq ud PO PRN (13:35)
--- NOTE | 2019-06-08 13:52 | Discharge Instructions ---
Discharge Instructions Discharge Instructions Follow up with: Cardiology and PCP Call MD/Return to Hospital if: Chest pain returns and does not go away Diet: 2 GM sodium (low sodium), low potassium (low K, 3 GM), other Resume Normal Activity?: Yes Activity: resume normal activities Special Instructions Follow up with your Script Writer on 06/12/19. Ask for repeat BMP to check your potassium Follow up with your PCP within one week of discharge. Take nitroglycerin as needed for now for chest pain. Avoid stressful activities. Return to ER if your chest pain returns or does not go away with nitroglycerin x 3. May need a transfer to [facility] for cardiac cath For Congestive Heart Failure Reminder Report to your physician any weight gain of 5 pounds or more in one week. Josh Peres D.O. Jun 08, 2019 13:52
[2019-06-08 16:00] VITALS: BP 134/69
--- NOTE | 2019-06-08 16:03 | Cardiac Electrophysiology PN ---
Assessment/Plan Assessment/Plan 1. Chest pain in a patient with history of prior fnd-CO-prrinqouk myocardial infarction. EKG showed lateral ST-T wave abnormalities. 3 out of 4 troponins are negative. Continue aspirin, beta-kimberly, statin and Imdur. Echocardiogram showed Nl EF. Stress test showed no ischemia. If chest pain recurs despite negative stress test, will need cardiac cath 2. Hypertension, on Imdur 30 daily, metoprolol 25 b.i.d., Cozaar 100 daily and Norvasc 10 daily. 3. Diabetes, on insulin. 4. HIV, on anti-retroviral therapy. 5. History of respiratory failure, status post tracheostomy that was resolved. 6. History of dysphagia, status post PEG placement that was resolved DW RN and Dr Wilhelm Subjective Subjective Nuclear stress test was nonischemic. No CP in SR t Objective Last 24 Hour Vital Signs Date Time Temp Pulse Resp B/P (MAP) Pulse Ox O2 Delivery O2 Flow Rate FiO2 06/08/19 13:36 130/61 06/08/19 12:00 97.9 74 18 130/61 (84) 100 06/08/19 12:00 73 06/08/19 08:44 84 112/57 06/08/19 08:44 112/57 06/08/19 08:43 112/57 06/08/19 08:10 84 18 98 Room Air 21 06/08/19 08:10 85 20 100 Room Air 21 83 20 98 06/08/19 08:00 97.9 88 18 112/57 (75) 99 06/08/19 08:00 85 06/08/19 07:38 Room Air 06/08/19 06:40 153/74 06/08/19 04:41 75 06/08/19 00:00 88 06/07/19 22:00 128/72 06/07/19 21:00 Room Air 06/07/19 20:54 81 121/57 06/07/19 20:00 79 06/07/19 20:00 97.7 81 18 121/57 (78) 98 06/07/19 19:37 85 20 100 Room Air 21 83 20 98 06/07/19 19:36 83 18 98 Room Air 21 Intake and Output 06/07/19 06/08/19 18:59 06:59 # Voids 3 3 Laboratory Tests Test 06/07/19 18:15 06/08/19 05:45 06/08/19 12:25 Troponin I 0.005 ng/mL (0.000-0.056) White Blood Count 4.6 K/UL (4.8-10.8) L Red Blood Count 3.21 M/UL (4.70-6.10) L Hemoglobin 9.8 G/DL (14.2-18.0) L Hematocrit 29.3 % (42.0-52.0) L Mean Corpuscular Volume 91 FL (80-99) Mean Corpuscular Hemoglobin 30.4 PG (27.0-31.0) Mean Corpuscular Hemoglobin Concent 33.4 G/DL (32.0-36.0) Red Cell Distribution Width 12.6 % (11.6-14.8) Platelet Count 171 K/UL (150-450) Mean Platelet Volume 4.8 FL (6.5-10.1) L Neutrophils (%) (Auto) % (45.0-75.0) Lymphocytes (%) (Auto) % (20.0-45.0) Monocytes (%) (Auto) % (1.0-10.0) Eosinophils (%) (Auto) % (0.0-3.0) Basophils (%) (Auto) % (0.0-2.0) Differential Total Cells Counted 100 Neutrophils % (Manual) 42 % (45-75) L Lymphocytes % (Manual) 45 % (20-45) Monocytes % (Manual) 12 % (1-10) H Eosinophils % (Manual) 1 % (0-3) Basophils % (Manual) 0 % (0-2) Band Neutrophils 0 % (0-8) Platelet Estimate Adequate Platelet Morphology Normal Red Blood Cell Morphology Normal Sodium Level 143 MMOL/L (136-145) 140 MMOL/L (136-145) Potassium Level 5.6 MMOL/L (3.5-5.1) H 4.8 MMOL/L (3.5-5.1) Chloride Level 110 MMOL/L (98-107) H 107 MMOL/L (98-107) Carbon Dioxide Level 27 MMOL/L (21-32) 27 MMOL/L (21-32) Anion Gap 7 mmol/L (5-15) 6 mmol/L (5-15) Blood Urea Nitrogen 24 mg/dL (7-18) H 26 mg/dL (7-18) H Creatinine 1.5 MG/DL (0.55-1.30) H 1.6 MG/DL (0.55-1.30) H Estimat Glomerular Filtration Rate 47.9 mL/min (>60) 44.5 mL/min (>60) Glucose Level 114 MG/DL (74-106) H 131 MG/DL (74-106) H Calcium Level 8.8 MG/DL (8.5-10.1) 8.5 MG/DL (8.5-10.1) Magnesium Level 2.0 MG/DL (1.8-2.4) Iron Level 47 ug/dL (50-175) L Total Iron Binding Capacity 201 ug/dL (250-450) L Percent Iron Saturation 23 % (15-50) Unsaturated Iron Binding 154 ug/dL (112-346) Ferritin 134 NG/ML (8-388) Vitamin B12 Level 559 PG/ML (193-986) Folate 75.4 NG/ML (8.6-58.9) H Microbiology Date/Time Source Procedure Growth Status 06/06/19 14:00 Nasal Nares Right MRSA Culture - Final Staphylococcus Aureus - Mrsa Complete 06/06/19 14:00 Rectal Mucosa VRE Culture - Final NO VANCOMYCIN RESISTANT ENTEROCOCCUS ... Complete Objective HEAD AND NECK: No JVD. LUNGS: Clear. CARDIOVASCULAR: Regular S1 and S2 with no gallop or murmur. His tracheostomy site is closed. ABDOMEN: Soft. EXTREMITIES: Without pitting edema. Murray Francois MD Jun 08, 2019 16:03
--- NOTE | 2019-06-08 17:17 | Diagnostic Imaging Report ---
Indication: Chest pain, shortness of breath Technique: CT pulmonary angiogram performed utilizing automated exposure control with intravenous contrast. Axial, sagittal and coronal reconstructions were obtained. 3-D volumetric reconstructions were also performed. CT dose: Total DLP 827.3 mGycm; CTDI vol 395.2 mGy Comparison: CT of chest with contrast 02/09/2019 Findings: Main pulmonary artery is normal in caliber. No pulmonary embolism is identified. There is no thoracic aortic aneurysm or dissection. Imaged portions of the great vessels are patent. There is minimal atherosclerotic calcification of the thoracic aorta. Imaged portions of the abdominal aorta normal in caliber. There is no pathologically enlarged hilar or mediastinal lymphadenopathy. Heart size within normal limits. No pericardial effusion. Mild coronary arterial calcification is noted. Mild dependent atelectasis noted in the lung bases. Small pneumatocele noted in the superior segment of the right lower lobe. There is no definite focal consolidation. No pleural effusion or pneumothorax. There is a 2 mm nodule in the periphery of the right middle lobe. Imaged portions of the upper abdomen demonstrate no evidence of acute abnormality. There are degenerative changes of the spine with mild scoliosis. Amorphous densities projecting adjacent to the right humeral head suggesting calcific tendinitis. No acute osseous abnormality identified. IMPRESSION: * No pulmonary embolism. * No thoracic aortic aneurysm or dissection. * Mild coronary arterial calcifications. * 2 mm nodule in the periphery of the right middle lobe. No routine imaging follow-up is recommended if patient is considered low risk for lung cancer. If patient is considered high risk consider follow-up CT scan within 6-12 months. * Mild dependent atelectasis. No focal consolidation, pleural effusion or pneumothorax. * Findings suggesting calcific tendinitis of the right shoulder The CT scanner at [facility] is accredited by the [employer] and the scans are performed using protocols designed to limit radiation exposure to as low as reasonably achievable to attain images of sufficient resolution adequate for diagnostic evaluation.
--- NOTE | 2019-06-08 17:23 | General Progress Note ---
Assessment/Plan Problem List: (1) History of AR (myocardial infarction) ICD Codes: I25.2 - Old myocardial infarction SNOMED: 003617933 (2) History of acute respiratory failure ICD Codes: Z87.09 - Personal history of other diseases of the respiratory system SNOMED: 431792228 (3) Hypertensive urgency ICD Codes: I16.0 - Hypertensive urgency SNOMED: 172228463 (4) Tachycardia ICD Codes: R00.0 - Tachycardia, unspecified SNOMED: 5718667 (5) Chest pain ICD Codes: R07.9 - Chest pain, unspecified SNOMED: 39115398 (6) CKD (chronic kidney disease) ICD Codes: N18.9 - Chronic kidney disease, unspecified SNOMED: 376402451 (7) HIV disease ICD Codes: B20 - Human immunodeficiency virus [HIV] disease SNOMED: 86632189 (8) Diabetes ICD Codes: E11.9 - Type 2 diabetes mellitus without complications SNOMED: 68376869 (9) Anxiety ICD Codes: F41.9 - Anxiety disorder, unspecified SNOMED: 65107883 (10) Uncontrolled type 2 diabetes mellitus with chronic kidney disease ICD Codes: E11.22 - Type 2 diabetes mellitus with diabetic chronic kidney disease; E11.65 - Type 2 diabetes mellitus with hyperglycemia SNOMED: 51728144, 983063316, 784593934 Status: stable Assessment/Plan: This is a 58-year-old male with a history of CAD, and NSTEMI, diabetes, former smoker, family history of AR who presents with chest pain at rest, now resolved. #Chest pain rule out ACS #History of CAD #History of NSTEMI #HTN > D- dimer, negative. Ruled out PE > CXR negative > Echocardiogram normal > Troponin downtrending .020 > Negative pharmacologic stress test -Admit to telemetry -Appreciate cardiology recommendations: Dr. Francois: Would recommend observation for 1 more day if chest pain returns. If chest pain returns then patient will need a cardiac cath. -CT pulmonary angiogram to rule out pulmonary embolism given no other source of chest pain identified at this moment. Explained to patient risks and benefits of using contrast given underlying CKD. Patient accepts the risks. All questions answered. -Aspirin 81 mg p.o. daily -Ezetimibe 10mg Po QHS (patient with a history of statin i-ntolerance, rhabdo) -Discontinue home clonidine 0.2 mg every 8 hours as patient is not taking this at home -Discontinue amlodipine as patient is not taking this at home and blood pressure controlled inpatient -Continue home losartan 100 mg p.o. daily -Continue metoprolol tartrate 25 mg p.o. every 12 hours #HIV on ART, compliant with medications -Check CD4 count and HIV RNA - pending -Continue home Isentress and Intelence #Diabetes mellitus type 2 -Continue home Januvia 100 mg p.o. daily -Continue Nateglinide 120mg PO TID -Continue Levemir 14 units every 12 hours -Sliding scale insulin -Check hemoglobin A1c -Hypoglycemia protocol -Accu-Cheks before meals and at bedtime #Hyperkalemia -Repeat BMP #CKD - stable -Continue to monitor creatinine -Avoid nephrotoxins #Mood disorder -Continue lamotrigine 200 mg p.o. nightly -discontinue Seroquel 25 mg p.o. every 12 hours-patient states he is no longer taking this #migraines -Continue fiorcet BID PRN headaches #Normocytic anemia -Iron studies and B12 folate FENPPX DVTPPX: Heparin subcu every 8 hours GI PPX: None needed Fluids: None Diet: Cardiac diet Lines: None PT/OT: pending Dispo: Home when above issues resolved 38 minutes spent on this encounter. Discussed with RN, patient, and cardiology. > 50% spent on counseling and care coordination. Time of note may not reflect time patient was seen. Subjective Date patient seen: Jun 08, 2019 Constitutional: Denies: chills, diaphoresis, fever, malaise, weakness, other HEENT: Denies: eye pain, blurred vision, tearing, double vision, ear pain, ear discharge, nose pain, nose congestion, throat pain, throat swelling, mouth pain , mouth swelling, other Cardiovascular: Denies: chest pain, edema, irregular heart rate, lightheadedness, palpitations, syncope, other Respiratory: Denies: cough, orthopnea, shortness of breath, SOB with excertion , SOB at rest, sputum, stridor, wheezing, other Gastrointestinal/Abdominal: Denies: abdomen distended, abdominal pain, black stools, tarry stools, blood in stool, constipated, diarrhea, difficulty swallowing, nausea, poor appetite, poor fluid intake, rectal bleeding, vomiting , other Genitourinary: Denies: burning, discharge, frequency, flank pain, hematuria, incontinence, pain, urgency, other Neurologic/Psychiatric: Denies: anxiety, depressed, emotional problems, headache, numbness, paresthesia, pre-existing deficit, seizure, tingling, tremors, weakness, other Endocrine: Denies: excessive sweating, flushing, intolerance to cold, intolerance to heat, increased hunger, increased thirst, increased urine, unexplained weight gain, unexplained weight loss, other Hematologic/Lymphatic: Denies: anemia, easy bleeding, easy bruising, other Allergies: Coded Allergies: No Known Allergies (Unverified , 02/05/13) Subjective No acute events overnight per nursing. No events on telemetry. Chest pain: No further episodes of chest pain. The patient completed the pharmacologic stress test yesterday which was negative. Patient denied having any chest pain during the stress test. He denies any fevers chills cough or shortness of breath. He has no other complaints. He does admit that at times he has chest pain which is reproducible Objective Last 24 Hour Vital Signs Date Time Temp Pulse Resp B/P (MAP) Pulse Ox O2 Delivery O2 Flow Rate FiO2 06/08/19 16:00 98.0 82 18 134/69 (90) 98 06/08/19 13:36 130/61 06/08/19 12:00 97.9 74 18 130/61 (84) 100 06/08/19 12:00 73 06/08/19 08:44 84 112/57 06/08/19 08:44 112/57 06/08/19 08:43 112/57 06/08/19 08:10 84 18 98 Room Air 21 06/08/19 08:10 85 20 100 Room Air 21 83 20 98 06/08/19 08:00 97.9 88 18 112/57 (75) 99 06/08/19 08:00 85 06/08/19 07:38 Room Air 06/08/19 06:40 153/74 06/08/19 04:41 75 06/08/19 00:00 88 06/07/19 22:00 128/72 06/07/19 21:00 Room Air 06/07/19 20:54 81 121/57 06/07/19 20:00 79 06/07/19 20:00 97.7 81 18 121/57 (78) 98 06/07/19 19:37 85 20 100 Room Air 21 83 20 98 06/07/19 19:36 83 18 98 Room Air 21 Intake and Output 06/07/19 06/08/19 18:59 06:59 # Voids 3 3 Laboratory Tests 06/07/19 18:15: Troponin I 0.005 06/08/19 05:45: White Blood Count 4.6L, Red Blood Count 3.21L, Hemoglobin 9.8L, Hematocrit 29.3L , Mean Corpuscular Volume 91, Mean Corpuscular Hemoglobin 30.4, Mean Corpuscular Hemoglobin Concent 33.4, Red Cell Distribution Width 12.6, Platelet Count 171, Mean Platelet Volume 4.8L, Neutrophils (%) (Auto) , Lymphocytes (%) ( Auto) , Monocytes (%) (Auto) , Eosinophils (%) (Auto) , Basophils (%) (Auto) , Differential Total Cells Counted 100, Neutrophils % (Manual) 42L, Lymphocytes % (Manual) 45, Monocytes % (Manual) 12H, Eosinophils % (Manual) 1, Basophils % ( Manual) 0, Band Neutrophils 0, Platelet Estimate Adequate, Platelet Morphology Normal, Red Blood Cell Morphology Normal, Sodium Level 143, Potassium Level 5.6H , Chloride Level 110H, Carbon Dioxide Level 27, Anion Gap 7, Blood Urea Nitrogen 24H, Creatinine 1.5H, Estimat Glomerular Filtration Rate 47.9, Glucose Level 114H, Calcium Level 8.8, Magnesium Level 2.0, Iron Level 47L, Total Iron Binding Capacity 201L, Percent Iron Saturation 23, Unsaturated Iron Binding 154 , Ferritin 134, Vitamin B12 Level 559, Folate 75.4H 06/08/19 12:25: Sodium Level 140, Potassium Level 4.8, Chloride Level 107, Carbon Dioxide Level 27, Anion Gap 6, Blood Urea Nitrogen 26H, Creatinine 1.6H, Estimat Glomerular Filtration Rate 44.5, Glucose Level 131H, Calcium Level 8.5 Height (Feet): 6 Height (Inches): 0.00 Weight (Pounds): 200 General Appearance: WD/WN, no apparent distress, alert EENT: PERRL/EOMI, normal ENT inspection Neck: non-tender, normal alignment, supple Cardiovascular: normal peripheral pulses, normal rate, regular rhythm, no JVD Respiratory/Chest: chest wall non-tender, lungs clear, normal breath sounds Abdomen: normal bowel sounds, non tender, soft, no organomegaly, no mass Extremities: normal range of motion, non-tender, normal inspection Edema: other - No lower extremity edema bilaterally Neurologic: 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 Jun 08, 2019 17:23
[2019-06-08] MEDS: Docusate 100mg cap ORAL PRN (17:39)
--- NOTE | 2019-06-08 19:24 | NUR ---
NURSE NOTES: Received patient from TESSA Hayes, patient stable in the hallway, ambulatory, denies pain at this time,Iv site on left hand g 20, asymptomatic, intact, patent. Will continue to monitor and reassess
[2019-06-08] MEDS ORDERED: Sodium Chloride 550 ML IV SCH (19:49)
[2019-06-08 20:00] VITALS: BP 158/85
--- NOTE | 2019-06-08 20:19 | NUR ---
HAND-OFF: Report given to Aditi Barry RN. Patient stable walking around.
[2019-06-08 21:03] VITALS: BP 158/85
[2019-06-09] MEDS: Albuterol/Ipratropium 3ml neb HHN SCH ×3 (01:00→13:00)
[2019-06-09] MEDS: Acetaminophen 500mg (ES) tab ORAL SCH ×3 (02:00→08:55)
--- NOTE | 2019-06-09 05:22 | NUR ---
RESPIRATORY NOTE: 1130-Physician requested ventilator to be changed post abg results. Placed pt. on different vent following new vent settings.
[2019-06-09] MEDS: Heparin 5000 units/ml inj SUBQ SCH (06:00)
[2019-06-09] MEDS: HydrALAZINE 50mg tab NG SCH (07:06)
[2019-06-09] MEDS: Pseudoephedrine 30mg tab ORAL PRN (07:07)
[2019-06-09] MEDS: guaiFENesin 100mg/5ml Liq ud PO PRN (07:08)
[2019-06-09] MEDS: NovoLOG Insulin Flexpen SUBQ SCH ×2 (07:11→12:22)
[2019-06-09] MEDS: Levemir Flexpen SUBQ SCH (07:13)
--- NOTE | 2019-06-09 07:22 | NUR ---
NURSE NOTES: I received the patient awake and resting in bed. Patient alert and oriented x4. Bed in lowest position and call light within reach. Patient does not display any signs of distress or SOB. I will continue to monitor the patient and implement care.
--- NOTE | 2019-06-09 07:55 | NUR ---
HAND-OFF: Report given to TESSA Santacruz, patient stable, plan of care endorsed.
[2019-06-09 08:00] VITALS: BP 130/58
[2019-06-09 08:45] LABS: ANION GAP 5 mmol/L (5-15); BLOOD UREA NITROGEN 24 mg/dL (7-18); CALCIUM 8.7 MG/DL (8.5-10.1); CARBON DIOXIDE 27 MMOL/L (21-32); CHLORIDE 108 MMOL/L (98-107); CREATININE 1.6 MG/DL (0.55-1.30); POTASSIUM 5.1 MMOL/L (3.5-5.1); SODIUM 140 MMOL/L (136-145)
[2019-06-09] MEDS: Metoprolol 25mg tab ORAL SCH (08:53)
[2019-06-09] MEDS: Aspirin EC 81mg tab ORAL SCH (08:54)
[2019-06-09] MEDS: Vitamin B Complex Tab ORAL SCH (08:54)
[2019-06-09] MEDS: Losartan 50mg tab ORAL SCH (08:54)
[2019-06-09] MEDS: DULoxetine 30mg cap ORAL SCH (08:55)
[2019-06-09] MEDS: Vitamin D 400 INTLU TAB ORAL SCH (08:56)
[2019-06-09] MEDS: Imdur 30mg tab ORAL SCH (08:56)
[2019-06-09] MEDS: INTELENCE 200 MG ORAL SCH (09:04)
[2019-06-09] MEDS: ISENTRESS 400 MG ORAL SCH (09:04)
[2019-06-09 12:00] VITALS: BP 136/62
--- NOTE | 2019-06-09 12:40 | Discharge Summary ---
Discharge Summary Hospital Course Date of Admission Jun 05, 2019 at 22:36 Date of Discharge Jun 09, 2019 Admitting Diagnosis Chest pain HPI Fritz WaltersJr is a 58 year old male who was admitted on Jun 05, 2019 at 22:36 for Chest Pain/Hypertension Consultations Dr. Danica Francois cardiology Procedures Nuclear stress test with no ischemic areas noted. TTE with normal EF Hospital Course 58-year-old male with a history of CAD, and NSTEMI, diabetes, former smoker, family history of AR who presents with chest pain at rest, now resolved. > D- dimer, negative. Ruled out PE > CXR negative > Echocardiogram normal > Troponin downtrending .020 and negative x 3/4 times > Negative pharmacologic stress test was completed - Dr. Francois: Agreed to discharge the patient home today. If further chest pain he will need cardiac angiogram for complete medical evaluation. The patient has a primary insurance investigator at [facility] [place][Note 2] and had a prior cath planned which was cancelled due to anemia. He has appt with his primary insurance investigator this Tuesday and was advised by me to limit activity, decrease or cancel caffeine intake until cardiology clears him as outpatient. -CT pulmonary angiogram to rule out pulmonary embolism given no other source of chest pain identified at this moment and negative. -Aspirin 81 mg p.o. daily -Ezetimibe 10mg Po QHS (patient with a history of statin i-ntolerance, rhabdo) -Discontinue home clonidine 0.2 mg every 8 hours as patient is not taking this at home -Discontinue amlodipine as patient is not taking this at home and blood pressure controlled inpatient -Continue home losartan 100 mg p.o. daily -Continue metoprolol tartrate 25 mg p.o. every 12 hours #HIV on ART, compliant with medications -Check CD4 count and HIV RNA - pending -Continue home Isentress and Intelence #Diabetes mellitus type 2 -Continue home Januvia 100 mg p.o. daily -Continue Nateglinide 120mg PO TID -Continue Levemir 14 units every 12 hours -Sliding scale insulin -Check hemoglobin A1c -Hypoglycemia protocol -Accu-Cheks before meals and at bedtime #Hyperkalemia -Resolved. #CKD - stable -Continue to monitor creatinine -Avoid nephrotoxins #Mood disorder -Continue lamotrigine 200 mg p.o. nightly -discontinue Seroquel 25 mg p.o. every 12 hours-patient states he is no longer taking this #migraines -Continue fiorcet BID PRN headaches #Normocytic anemia -Iron studies and B12 folate Discharge Medications Continued Medications: Acetaminophen* (Acetaminophen Extra Strength*) 500 Mg Tablet 500 MG ORAL Q6H, TAB (This prescription has been renewed) Artificial Tears (Refresh Lacri-Lube Ointment) 3.5 Gm Oint...g. 1 APPLIC BOTH EYES AC+HS for 30 Days, #30 GM Aspirin Ec* (Aspirin Ec*) 81 Mg Tablet. 81 MG ORAL DAILY for 30 Days, TAB Biotin (Biotin) 2,500 Mcg Capsule 5000 MCG PO DAILY, CAP (This prescription has been renewed) Butalb/Acetaminophen/Caffeine (Hehsky-Cjuqddjo-Lffh 50-325-40) 1 Each Tablet 1 EACH PO BID PRN for For Pain, TAB (This prescription has been renewed) Cetirizine Hcl* (Zyrtec*) 10 Mg Tablet 10 MG ORAL DAILY PRN for Itching, #30 TAB 0 Refills (This prescription has been renewed) Docusate Sodium (Docusate Sodium) 250 Mg Capsule 100 MG ORAL TWICE A DAY PRN for Constipation, CAP Duloxetine Hcl* (Cymbalta*) 60 Mg Capsule.dr 90 MG ORAL DAILY, CAP Etravirine* (Intelence*) 100 Mg Tablet 400 MG ORAL DAILY, #60 TAB 0 Refills (This prescription has been renewed) Ezetimibe (Zetia*) 10 Mg Tablet 10 MG ORAL BEDTIME, TAB (This prescription has been renewed) Ferrous Sulfate* (Ferrous Sulfate*) 325 Mg Tablet 325 MG ORAL THREE TIMES A DAY, #90 TAB 0 Refills (This prescription has been renewed) Folic Acid (Folic Acid) 1 Mg Tablet 1 MG PO BID, TAB Guaifenesin (Mucinex) 100 Mg Gran.pack 100 MG PO (This prescription has been renewed) Hydralazine HCl (Hydralazine HCl) 50 Mg Tablet 50 MG NG Q8HR for 30 Days, #30 TAB Insulin Aspart (Novolog Flexpen) 100 Unit/1 Ml Insuln.pen 0 UNITS SUBQ EVERY 6 HOURS for 30 Days, #30 EA Insulin Detemir (Levemir Flexpen) 100 Unit/1 Ml Insuln.pen 14 UNITS SUBQ Q12HR for 30 Days, #30 EA Ipratropium/Albuterol Sulfate (DuoNeb 0.5-3(2.5)mg/3ml) 3 Ml Ampul.neb 3 ML HHN Q6HRT for 30 Days, #30 EA Isosorbide Mononitrate (Isosorbide Mononitrate Er) 30 Mg Tab.er.24h 30 MG PO DAILY, TAB (This prescription has been renewed) Lamotrigine (Lamotrigine) 200 Mg Tab.er.24 200 MG PO QHS, TAB Losartan Potassium* (Losartan Potassium*) 50 Mg Tablet 100 MG ORAL DAILY, TAB (This prescription has been renewed) Metoprolol Tartrate (Metoprolol Tartrate) 25 Mg Tablet 25 MG ORAL Q12HR for 30 Days, #30 TAB Nateglinide (Starlix) 120 Mg Tablet 120 MG ORAL THREE TIMES A DAY, TAB (This prescription has been renewed) [Patient's Own Med] () 1 EA EA 1 EA ORAL DAILY [Patient's Own Med] () 1 EA EA 1 EA ORAL BID [Patient's Own Med] () 1 EA EA 1 EA ORAL BID Raltegravir (Isentress) 400 Mg Tablet 400 MG ORAL EVERY 12 HOURS, TAB (This prescription has been renewed) Sitagliptin* (Januvia*) 25 Mg Tablet 100 MG ORAL DAILY, TAB (This prescription has been renewed) Vitamin B Complex (Vitamin B Complex) 1 Each Tablet 1 EACH PO DAILY, TAB (This prescription has been renewed) Vitamin D (Vitamin D3) 400 Unit Tablet 400 UNITS ORAL DAILY, TAB (This prescription has been renewed) Discontinued Medications: Amlodipine Besylate (Norvasc) 10 Mg Tablet 10 MG NG DAILY for 30 Days, #30 TAB Clonidine HCl (Clonidine HCl) 0.2 Mg Tablet 0.2 MG NG EVERY 8 HOURS for 30 Days, #30 TAB Quetiapine Fumarate* (Seroquel*) 25 Mg Tablet 25 MG ORAL Q12HR for 30 Days, #30 TAB Tenofovir Disoproxil Fumarate* (Viread*) 300 Mg Tablet 300 MG ORAL DAILY, #30 TAB Discharge Condition Upon Discharge: stable Discharge Disposition Patient was discharged to HOME Discharge Diagnoses: (1) NSTEMI (non-ST elevated myocardial infarction) (2) MDD (major depressive disorder), recurrent episode, moderate (3) HIV (human immunodeficiency virus infection) (4) CKD (chronic kidney disease) (5) HIV disease (6) Diabetes (7) Hypertension (8) Chest pain Discharge Instructions Discharge Instructions Follow up with: Cardiology and PCP Call MD/Return to Hospital if: Chest pain returns and does not go away Activity: resume normal activities Geovani Hawley MD Jun 09, 2019 12:40
--- NOTE | 2019-06-09 13:21 | Cardiology Report ---
APPROVED REPORT EKG Measurement Heart [id number] Sinus tachycardia Possible Lateral infarct, age undetermined Abnormal ECG
--- NOTE | 2019-06-09 13:23 | Cardiology Report ---
APPROVED REPORT EKG Measurement Heart [id number] Accelerated Junctional rhythm Cannot rule out Anterior infarct, age undetermined Abnormal ECG
[2019-06-09] MEDS ORDERED: NS 500ML ONE (13:59)
--- NOTE | 2019-06-09 14:13 | Cardiac Electrophysiology PN ---
Assessment/Plan Assessment/Plan 1. Chest pain and history of prior hil-ZO-gapbzhjcm myocardial infarction. EKG showed lateral ST-T wave abnormalities. 3 out of 4 troponins are negative. Continue aspirin, beta-kimberly, statin and Imdur. Echocardiogram showed Nl EF. Stress test showed no ischemia. If chest pain recurs despite negative stress test, may need cardiac cath 2. Hypertension, on Imdur 30 daily, metoprolol 25 b.i.d., Cozaar 100 daily and Norvasc 10 daily. 3. Diabetes, on insulin. 4. HIV, on anti-retroviral therapy. 5. History of respiratory failure, status post tracheostomy that was resolved. 6. History of dysphagia, status post PEG placement that was resolved DW RN OK to DC Subjective Subjective DC in progress. No CP in SR. Objective Last 24 Hour Vital Signs Date Time Temp Pulse Resp B/P (MAP) Pulse Ox O2 Delivery O2 Flow Rate FiO2 06/09/19 12:00 98.4 76 17 136/62 (86) 99 06/09/19 11:23 79 06/09/19 09:00 Room Air 06/09/19 08:56 121/61 06/09/19 08:54 121/61 06/09/19 08:53 86 121/61 06/09/19 08:34 81 20 97 Room Air 21 06/09/19 08:00 98.3 58 18 130/58 (82) 100 06/09/19 07:38 91 06/09/19 07:06 161/84 06/09/19 04:00 88 06/09/19 00:00 78 06/08/19 21:35 158/85 06/08/19 21:05 86 158/85 06/08/19 21:03 97.9 86 18 158/85 (109) 98 06/08/19 21:00 Room Air 06/08/19 20:00 97.9 86 18 158/85 (109) 98 06/08/19 20:00 85 06/08/19 19:20 80 18 98 Room Air 21 06/08/19 16:00 72 06/08/19 16:00 98.0 82 18 134/69 (90) 98 Intake and Output 06/08/19 06/09/19 19:00 07:00 Intake Total 120 ml Balance 120 ml Intake Oral 120 ml # Voids 1 2 Laboratory Tests Test 06/09/19 07:20 Sodium Level 140 MMOL/L (136-145) Potassium Level 5.1 MMOL/L (3.5-5.1) Chloride Level 108 MMOL/L (98-107) H Carbon Dioxide Level 27 MMOL/L (21-32) Anion Gap 5 mmol/L (5-15) Blood Urea Nitrogen 24 mg/dL (7-18) H Creatinine 1.6 MG/DL (0.55-1.30) H Estimat Glomerular Filtration Rate 44.5 mL/min (>60) Glucose Level 187 MG/DL (74-106) H Calcium Level 8.7 MG/DL (8.5-10.1) Objective HEAD AND NECK: No JVD. LUNGS: Clear. CARDIOVASCULAR: Regular S1 and S2 with no gallop or murmur. His tracheostomy site is closed. ABDOMEN: Soft. EXTREMITIES: Without pitting edema. Murray Francois MD Jun 09, 2019 14:13
--- NOTE | 2019-06-09 14:15 | NUR ---
NURSE NOTES: Patient discharged in stable condition. Patient took a shower before discharge. Patient's IV removed and the IV site did not display any signs of distress or SOB. Patient provided with patient packet. Patient verbalized understanding that he is to follow-up with his clinical services manager. Patient confirmed he was in possession of all his belongings and medications. Patient ambulated to the lobby without any signs of distress. Patient transported himself home.
--- NOTE | 2019-06-10 00:20 | Cardiology Report ---
APPROVED REPORT EKG Measurement Heart [id number] ME 162P56 [id number] Poor data quality, interpretation may be adversely affected Normal sinus rhythm Prolonged QT Abnormal ECG
--- NOTE | 2019-06-13 10:52 | Cardiology Report ---
APPROVED REPORT EXAM: Two-dimensional and M-mode echocardiogram with Doppler and color Doppler. INDICATION Chest Pain M-Mode DIMENSIONS IVSd1.3 (0.7-1.1cm)Left Atrium (MM)3.7 (1.6-4.0cm) LVDd4.7 (3.5-5.6cm)Aortic Root3.2 (2.0-3.7cm) PWd1.3 (0.7-1.1cm)Aortic Cusp Exc.1.9 (1.5-2.0cm) LVDs2.8 (2.5-4.0cm) PWs2.1 cm Normal left ventricular chamber size, systolic function and wall motion. Left ventricular ejection fraction estimated to be 55-60 %. Mild left ventricular hypertrophy. No evidence of pericardial effusion. Left and right atrial sizes at upper limits of normal. Right ventricular chamber size is within normal limits. Focal aortic valve sclerosis with adequate cusp excursion. Mildly thickened mitral valve leaflets with normal excursion. Mild mitral annulus and aortic root calcification. Pulmonic valve not well visualized. Normal tricuspid valve structure. IVC at normal size with physiologic collapse. A color flow and spectral Doppler study was performed and revealed: Trace mitral regurgitation. Mitral diastolic velocities suggest mild LV diastolic dysfunction (Grade I). Trace tricuspid regurgitation. Tricuspid systolic velocities suggests peak right ventricular systolic pressure of 22 mmHg.
--- NOTE | 2019-06-27 21:12 | Coder Physician Query ---
Clarification is required for compliance, coding accuracy, and to reflect severity of illness for this patient. Dear Dr. 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 EKG showed lateral ST-T wave abnormalities. 3 out of 4 troponins are negative. Continue aspirin, beta-kimberly, statin and Imdur. Echocardiogram showed Nl EF. Stress test showed no ischemia. If chest pain recurs despite negative stress test, may need cardiac cath - Dr. Francois: Agreed to discharge the patient home today. If further chest pain he will need cardiac angiogram for complete medical evaluation A posssible diagnois of_NSTEMI___was made in the medical record in progress notes, consults, dc summary. Upon review, it is difficult to determine whether this diagnosis has been ruled in, ruled out,or is still being worked up. Please indicate below the status of the aforementioned diagnosis. [] Treated and resolve [] Presumed and treated [] Currently under treatment [] Still being worked-up [x] Ruled out Geovani Hawley M.D. Date Please also document in your Progress Notes and/or Discharge Summary and indicate if the condition was present on admission. MTDD
== END 2019-06-09 14:00 | disposition home or self-care (01) | DRG 305 ==
LOC: EMR 21:14 → 2E 22:36 → EDBEDREQ 23:04
DX: I16.0 Hypertensive urgency (principal); F33.1 Major depressive disorder, recurrent, moderate; B20 Human immunodeficiency virus [HIV] disease; R07.9 Chest pain, unspecified; D64.9 Anemia, unspecified; I25.10 Atherosclerotic heart disease of native coronary artery without angina pectoris; I12.9 Hypertensive chronic kidney disease with stage 1 through stage 4 chronic kidney disease, or unspecified chronic kidney disease; E11.22 Type 2 diabetes mellitus with diabetic chronic kidney disease; N18.9 Chronic kidney disease, unspecified; I25.2 Old myocardial infarction; Z86.73 Personal history of transient ischemic attack (TIA), and cerebral infarction without residual deficits; R00.0 Tachycardia, unspecified; E11.65 Type 2 diabetes mellitus with hyperglycemia; F41.9 Anxiety disorder, unspecified; F39 Unspecified mood [affective] disorder; Z79.82 Long term (current) use of aspirin; E87.5 Hyperkalemia; G43.909 Migraine, unspecified, not intractable, without status migrainosus; F17.200 Nicotine dependence, unspecified, uncomplicated; Z79.4 Long term (current) use of insulin
CPT/HCPCS: 36415; 71045; 71275; 78452; 80048; 80053; 80061; 82550; 82553; 82607; 82728; 82746; 82962; 83036; 83540; 83550; 83735; 83880; 84100; 84484; 85007; 85025; 85379; 86360; 87081; 87536; 93005; 93017; 93306; 93970; 94640; 94664; 96360; 99285; J1815; J2785; J7030; J7620; S5561

== ENCOUNTER 2019-07-14 16:01 | Inpatient (IN) | payer MEDICARE, MEDICAID ==
[2019-07-14] VITALS (19 sets, daily range): BP systolic 133–200; BP diastolic 66–101
[~2019-07-14] VITALS: Ht 182.9 cm; Wt 93.9 kg
--- NOTE | 2019-07-14 16:27 | NUR ---
ED Nurse Note: pt walked in c/o flu like symtoms and headache . Pt undressed and placed in hospital gown in bed pt speaking in clear full sentences awaiting lou adamson.
[2019-07-14] MEDS ORDERED: Vancomycin 1.5 GM in NS 275 ML IVPB ONE (16:45)
[2019-07-14] MEDS ORDERED: Piperacillin/Tazobactam 3.375 GM in NS 110 ML IVPB ONE (16:45)
[2019-07-14] MEDS ORDERED: Morphine Sulfate 4mg/ml Inj (IV USE ONLY) IVP ONE ×2 (16:45→17:45)
[2019-07-14] MEDS ORDERED: Sodium Chloride 2,800 ML IVLG ONE (16:45)
[2019-07-14] MEDS ORDERED: Nitroglycerin 2% oint pkt TOPIC ONE (16:45)
--- NOTE | 2019-07-14 17:42 | Diagnostic Imaging Report ---
EXAM: XR Chest, 1 View CLINICAL HISTORY: CP TECHNIQUE: Frontal view of the chest. COMPARISON: 06/05/2019. FINDINGS: Lungs: Possible mild pulmonary vascular congestion/edema. No focal consolidation. Pleural space: Unremarkable. No pneumothorax. Heart: Cardiomegaly. Mediastinum: Unremarkable. Bones/joints: Unremarkable. IMPRESSION: Possible mild pulmonary vascular congestion/edema. No focal consolidation.
--- NOTE | 2019-07-14 17:54 | Emergency Room Report ---
History of Present Illness General Chief Complaint: Upper Respiratory Illness Source: Patient Present Illness HPI Presents with 2 problems. The primary complaint is fever, headache muscle aches. He took Tylenol before coming in. The patient is diabetic. He says his blood sugar was 142 this morning. He is taking a weekly dosing of insulin along with sliding scale control during the day. He has 2 sores on his feet but cannot feel them well. He is living with his car. He measured his temperature 103 last night. He had shaking chills. He is also had a nonproductive cough. The second problem is that he has chest pain. He says he needs to have a surgical procedure formed on his chest but missed an appointment recently. He has been taking nitroglycerin throughout the night. He identifies his pain is his angina. He says he does not have pain at the moment. Had trach in past for "bilateral pneumonia". 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 Hx Hypertension: Yes Hx Diabetes: Yes Hx Cancer: No Hx Gastrointestinal Problems: No Hx Neurological Problems: Yes - STROKE Hx Cerebrovascular Accident: Yes Hx Vertigo: Yes Hx Dizziness: Yes Hx Syncope: Yes Hx Headaches: Yes - Tension headaches Review of Systems All Other Systems: negative except mentioned in HPI Physical Exam Vital Signs Date Time Temp Pulse Resp B/P (MAP) Pulse Ox O2 Delivery O2 Flow Rate FiO2 07/14/19 16:13 101.8 107 16 162/75 (104) 96 Room Air Sp02 EP Interpretation: reviewed, abnormal - Interpreted as low by me General Appearance: Chronically Ill Eyes: bilateral eye normal inspection, bilateral eye PERRL ENT: dry mucus membranes Neck: other - Old tracheostomy site Respiratory: no respiratory distress, decreased breath sounds, crackles, other - No wheezing Cardiovascular #1: regular rate, rhythm Procedures Critical Care Time Critical Care Time Total Critical Care Time: 90 min bedside evaluation and treatment excludes procedures (EKGs). Reason for critical care: Sepsis evaluation, non-STEMI, respiratory distress, BiPAP, breathing treatments, repeat EKG Possible complications: hypotension, hypertension, AL, shock, arrhythmias, metabolic acidosis, end organ damage, respiratory failure. Interventions: Fluid bolus, BiPAP, breathing treatments, antibiotics, fluid restriction, Lasix, reevaluation, CO2 monitoring, aspirin, metoprolol Course: Patient presented with fever chills cough and headache with diabetic ulcers. Sepsis evaluation and resuscitation begun. Antibiotics ordered. Analgesia given his chest pain increased. EKG non-STEMI. Called with elevated troponin. Aspirin and nitroglycerin paste administered. Patient somewhat deteriorated with initial fluid bolus of 600 mils given. Fluids stopped and Lasix given. Nitroglycerin drip begun. Tachycardic and hypertensive therefore metoprolol given also. Hypoxemia. BiPAP started. CO2 17-21. Albuterol and Atrovent given. Patient improved on BiPAP and pain decreased with aggressive treatment. Discussed in detail with the admitting physician. Repeat EKG unchanged. Consultations: nursing staff, EMS, respiratory therapy, admitting physician Performed by: Dr. Flowers Tolerated well condition = critical Medical Decision Making Diagnostic Impression: Primary Impression: Acute coronary syndrome Additional Impressions: Hypoxia NSTEMI (non-ST elevated myocardial infarction) Diabetic foot ulcers Qualified Codes: E10.621 - Type 1 diabetes mellitus with foot ulcer; L97.502 - Non-pressure chronic ulcer of other part of unspecified foot with fat layer exposed Renal insufficiency ER Course The patient is with fever and headache with open lesions on his feet. Differential includes unstable angina, acute myocardial infarction, pneumonia, urinary tract infection, osteomyelitis of feet, other occult infection, diabetic ketoacidosis amongst others. Evaluation with EKG, chest x-ray, foot x- rays (consideration) and labs including blood cultures and lactic acid. The patient will be treated with IV hydration. Based on the high suspicion of infection in the feet Zosyn and vancomycin are ordered. Patient will also be administered aspirin and nitroglycerin and nitro glycerin paste. He will also be treated with morphine. Initial EKG with sinus tachycardia rate 114 ST depression laterally non-STEMI. Chest x-ray no infiltrate but some increased de jesus. C/O 9/10 pain after second dose of morphine. Repeat EKG unchanged. Patient is off monitor. When placed back on the monitor. He was hypoxemic. On 2 L by nasal cannula his oxygen saturation was 74%. He was tachypneic also and had some wheezes. There are also rales. Lasix was ordered. BiPAP ordered. Nitroglycerin IV ordered. Second IV ordered. Dilaudid ordered. Pain better on NTG. Tachycardic and HTN. Metoprolol ordered. Dilaudid held. O2 sat improved. Called with + troponin. Consider Lovenox. Diuresing. Complex patient with signs of CHF versus infiltrates. Seemed to worsen with fluids so bolus held. Improved on NTG, metoprolol and BIPAP. Antibiotics given. Initial lactate neg. feet do not appear as site of infection. More likely chest. Clinically much improved before transfer to ICU. Discussed in detail with Dr. Russo. Laboratory Tests Test 07/14/19 17:18 White Blood Count 5.0 K/UL (4.8-10.8) Red Blood Count 3.39 M/UL (4.70-6.10) L Hemoglobin 10.0 G/DL (14.2-18.0) L Hematocrit 30.2 % (42.0-52.0) L Mean Corpuscular Volume 89 FL (80-99) Mean Corpuscular Hemoglobin 29.7 PG (27.0-31.0) Mean Corpuscular Hemoglobin Concent 33.2 G/DL (32.0-36.0) Red Cell Distribution Width 11.8 % (11.6-14.8) Platelet Count 117 K/UL (150-450) L Mean Platelet Volume 6.0 FL (6.5-10.1) L Neutrophils (%) (Auto) 67.8 % (45.0-75.0) Lymphocytes (%) (Auto) 17.5 % (20.0-45.0) L Monocytes (%) (Auto) 13.6 % (1.0-10.0) H Eosinophils (%) (Auto) 0.6 % (0.0-3.0) Basophils (%) (Auto) 0.5 % (0.0-2.0) Prothrombin Time 10.7 SEC (9.30-11.50) Prothrombin Time INR 1.0 (0.9-1.1) PTT 38 SEC (23-33) H Urine Color Pale yellow Urine Appearance Clear Urine pH 5 (4.5-8.0) Urine Specific [place] 1.015 (1.005-1.035) Urine Protein 3+ (NEGATIVE) H Urine Glucose (UA) Negative (NEGATIVE) Urine Ketones Negative (NEGATIVE) Urine Blood 2+ (NEGATIVE) H Urine Nitrite Negative (NEGATIVE) Urine Bilirubin Negative (NEGATIVE) Urine Urobilinogen Normal MG/DL (0.0-1.0) Urine Leukocyte Esterase Negative (NEGATIVE) Urine RBC 2-4 /HPF (0 - 0) H Urine WBC 0-2 /HPF (0 - 0) Urine Squamous Epithelial Cells None /LPF (NONE/OCC) Urine Bacteria Few /HPF (NONE) Sodium Level 134 MMOL/L (136-145) L Potassium Level 4.5 MMOL/L (3.5-5.1) Chloride Level 101 MMOL/L (98-107) Carbon Dioxide Level 27 MMOL/L (21-32) Anion Gap 6 mmol/L (5-15) Blood Urea Nitrogen 25 mg/dL (7-18) H Creatinine 1.9 MG/DL (0.55-1.30) H Estimate Glomerular Filtration Rate 36.5 mL/min (>60) Glucose Level 151 MG/DL (74-106) H Lactic Acid Level 0.90 mmol/L (0.4-2.0) Calcium Level 7.7 MG/DL (8.5-10.1) L Magnesium Level 1.8 MG/DL (1.8-2.4) Total Bilirubin 0.2 MG/DL (0.2-1.0) Aspartate Amino Transferase (AST) 34 U/L (15-37) Alanine Aminotransferase (ALT) 43 U/L (12-78) Alkaline Phosphatase 130 U/L (46-116) H Total Creatine Kinase 212 U/L (26-308) Troponin I 0.339 ng/mL (0.000-0.056) Pro-B-Type Natriuretic Peptide 4687 pg/mL (0-125) H Total Protein 7.0 G/DL (6.4-8.2) Albumin 3.6 G/DL (3.4-5.0) Globulin 3.4 g/dL Albumin/Globulin Ratio 1.1 (1.0-2.7) Lipase 197 U/L (73-393) EKG Diagnostic Results Rate: tachycardiac Rhythm: NSR ST Segments: other - ST inversions laterally ASA given to the pt in ED: Yes Rhythm Strip Diag. Results EP Interpretation: yes Rhythm: no PVC's, no ectopy, other - This tachycardia Chest X-Ray Diagnostic Results Chest X-Ray Diagnostic Results : Chest X-Ray Ordered: Yes # of Views/Limited/Complete: 1 View Indication: Chest Pain EP Interpretation: Yes Interpretation: no consolidation, no effusion, no pneumothorax, other - Slightly large heart Impression: Other Electronically Signed by: Electronically signed by Salty Flowers MD Last Vital Signs Date Time Temp Pulse Resp B/P (MAP) Pulse Ox O2 Delivery O2 Flow Rate FiO2 07/15/19 00:15 20 134/74 99 Nasal Cannula 2.0 07/15/19 00:00 100.1 07/15/19 00:00 103 07/14/19 21:21 28 Status: improved Disposition: ADMITTED INPATIENT Condition: Critical Referrals: NON PHYSICIAN (PCP) Salty Flowers MD Jul 14, 2019 17:54
[2019-07-14] MEDS ORDERED: HYDROmorphone 1mg/ml Carpuject IVP ONE (18:00)
[2019-07-14] MEDS ORDERED: Nitroglycerin 50mg/250ml btl 250 ML IV SCH (18:00)
[2019-07-14 18:14] LABS: BASOPHILS % (AUTO) 0.5 % (0.0-2.0); EOSINOPHILS % (AUTO) 0.6 % (0.0-3.0); HEMATOCRIT 30.2 % (42.0-52.0); LYMPHOCYTES % (AUTO) 17.5 % (20.0-45.0); MEAN CORPUSCULAR VOLUME 89 FL (80-99); MONOCYTES % (AUTO) 13.6 % (1.0-10.0); NEUTROPHILS % (AUTO) 67.8 % (45.0-75.0); PLATELET COUNT 117 K/UL (150-450); RED BLOOD COUNT 3.39 M/UL (4.70-6.10); RED CELL DISTRIBUTION WIDTH 11.8 % (11.6-14.8)
[2019-07-14] MEDS ORDERED: Albuterol/Ipratropium 3ml neb HHN ONE (18:15)
[2019-07-14 18:17] LABS: APPEARANCE,URINE CLEAR; BILIRUBIN, URINE NEGATIVE (NEGATIVE); COLOR,URINE PALE YELLOW; GLUCOSE, URINE (UA) NEGATIVE (NEGATIVE); KETONES,URINE NEGATIVE (NEGATIVE); LEUKOCYTE ESTERASE ,URINE NEGATIVE (NEGATIVE); NITRITE,URINE NEGATIVE (NEGATIVE); PH,URINE 5 (4.5-8.0); PROTEIN,URINE 3+ (NEGATIVE); UROBILINOGEN,URINE NORMAL MG/DL (0.0-1.0)
[2019-07-14 18:21] LABS: ANION GAP 6 mmol/L (5-15); BLOOD UREA NITROGEN 25 mg/dL (7-18); CALCIUM 7.7 MG/DL (8.5-10.1); CARBON DIOXIDE 27 MMOL/L (21-32); CHLORIDE 101 MMOL/L (98-107); CREATININE 1.9 MG/DL (0.55-1.30); POTASSIUM 4.5 MMOL/L (3.5-5.1); SODIUM 134 MMOL/L (136-145)
[2019-07-14 18:31] LABS: ALANINE AMINOTRANSFERASE 43 U/L (12-78); ALBUMIN 3.6 G/DL (3.4-5.0); ALBUMIN/GLOBULIN RATIO 1.1 (1.0-2.7); ALKALINE PHOSPHATASE 130 U/L (46-116); ASPARTATE AMINO TRANSFERASE 34 U/L (15-37); BILIRUBIN,TOTAL 0.2 MG/DL (0.2-1.0); CREATINE KINASE 212 U/L (26-308)
[2019-07-14] MEDS ORDERED: JANUVIA25 MG ORAL (18:31)
[2019-07-14] MEDS ORDERED: LANSOPRAZOLE15 MG ORAL (18:33)
--- NOTE | 2019-07-14 18:40 | NUR ---
ED Nurse Note: Pt on Bipap 12/5, O2 at 50%.
[2019-07-14] MEDS: Metoprolol 5mg/5ml Inj IVP SCH ×3 (18:43→19:34)
--- NOTE | 2019-07-14 19:00 | NUR ---
ED Nurse Note: pt moved to bed 5 from six due to vs not being picked up correctly pt moved at 1800. pt started c/o 05/01 chest pain pt stated he had Angina 174. All blood and urine and cultures sent @1730. FLu swabs sent later. Pt has open wounds to bottom of both feet pics taken and will be down loaded.
--- NOTE | 2019-07-14 19:15 | NUR ---
ED Nurse Note: belongins list done and med recon done
--- NOTE | 2019-07-14 19:15 | NUR ---
HAND-OFF: Report given to Reg ZARATE.
--- NOTE | 2019-07-14 19:45 | NUR ---
ED Nurse Note: Report given to TESSA Richardson.
--- NOTE | 2019-07-14 20:15 | NUR ---
TRANSFER TO FLOOR: Patient transferred to ICU as ordered, per Kei Loaiza Report given to Jairo Richardson. Belongings and medications given to JAIRO Richardson. Family and or S/O informed of transfer.
--- NOTE | 2019-07-14 20:16 | NUR ---
NURSE NOTES: Admitted 58 year old male patient from ER. Endorsement received from TESSA Finney. Patient awake and alert. Oriented x4. On 2LPM oxygen per nasal cannula. As per him he does not have shortness of breath at this time and no chest pain/no pain whatsoever. With left AC g18, right AC g18 patent and intact. On Nitroglycerin drip 5mcg/min. Sinus tach on the monitor. Noted with open wounds on bilateral soles of the feet. Assessment and dressing done. Oriented to room, staff, call light. Educated and demonstrated to patient how to use call light, verbalized understanding. Bed locked, low position. Call light within reach. Bed alarm on. Siderails padded for seizure precautions.
--- NOTE | 2019-07-14 20:59 | NUR ---
NURSE NOTES: Called Dr. Lutz on his emergency exchange for admission orders. Left a message , awaiting for return call.
--- NOTE | 2019-07-14 21:20 | NUR ---
NURSE NOTES: Received return call from Dr. Antony Russo, Dr. Lutz's mail messenger contractor. Informed MD regarding patient's home medications. Received admission orders. Orders read back and verified by .
--- NOTE | 2019-07-14 21:30 | NUR ---
NURSE NOTES: Informed Drs. Meredith and Alessandro regarding consultation.
--- NOTE | 2019-07-14 21:40 | NUR ---
NURSE NOTES: Patient brought in his home medications, sent to the Pharmacy c/o Charge nurse with receipt number [id number]. Stub attached in the chart. As per patient he has taken all his medications for tonight except his HIV meds. As per him he left his HIV medication in his car. As per Dahlia Cuellar "They are non-formulary, so we don't have any to give him tonight. Someone will have to get it from his car, or we will have to wait until Tuesday to see if [facility] will be able to fill a new prescription for him. Please pass this info along to the morning RN so that the ID MD will be aware." Will endorse to the morning RN.
[2019-07-14] MEDS: Nitroglycerin 50mg/250ml btl 250 ML IV SCH (22:25)
[2019-07-14] MEDS: HydrALAZINE 50mg tab ORAL SCH (22:27)
[2019-07-14] MEDS: Piperacillin/Tazobactam 3.375 GM in NS 110 ML IVPB SCH (22:29)
--- NOTE | 2019-07-14 22:30 | NUR ---
NURSE NOTES: Temperature 100.5F. Cooling measures initiated. PRN Tylenol given.
[2019-07-15] VITALS (74 sets, daily range): BP systolic 112–171; BP diastolic 55–83
--- NOTE | 2019-07-15 | NUR ---
NURSE NOTES: Patient asleep at this time. Arousable per name. Temp 100.1F. Nitroglycerin drip at 5mcg/min. Sinus tach on the monitor. Bed locked and in low position. Call light within reach.
--- NOTE | 2019-07-15 01:35 | NUR ---
NURSE NOTES: Troponin 21.791. Called Dr. Russo, Dr Lutz's oncall MD. Left a message, awaiting for return call.
--- NOTE | 2019-07-15 02:10 | NUR ---
NURSE NOTES: Left a message for Dr. Francois for the Troponin. Awaiting for return call. Called Dr. Lutz's exchange. As per the hone operator, Dr. Russo is not answering at the moment and she will leave a message again for the MD.
--- NOTE | 2019-07-15 02:25 | NUR ---
NURSE NOTES: Charge nurse called Dr. Francois, left a message. Awaiting for return call.
--- NOTE | 2019-07-15 03:09 | NUR ---
NURSE NOTES: Still no return call from Drs. Lutz/Karan and Dr. Francois. Called Nurse [employer] Floorperson. As per her she will call MD at home.
--- NOTE | 2019-07-15 03:15 | NUR ---
NURSE NOTES: Nurse Superintendent Police called the undersigned. As per her she called Dr. Francois and received the following orders: 12L ECG stat, Echo, repeat troponin in the morning, stat Heparin drip per hospital protocol.
[2019-07-15] MEDS ORDERED: Heparin 5000 units/ml inj IV ONE (03:30)
[2019-07-15] MEDS ORDERED: Heparin 25,000u/D5W 500ml 500 ML IV SCH ×2 (03:30→11:00)
--- NOTE | 2019-07-15 03:30 | NUR ---
NURSE NOTES: Received call from [employer] Pharmacist Angelica. As per her she put in the ff order as per protocol: Heparin 5,000units IV bolus, Heparin drip 11units/kg/hr and PTT 6 hours after. Next PTT timed at 0940H. Heparin drip started countersigned with another RN.
--- NOTE | 2019-07-15 04:00 | NUR ---
NURSE NOTES: Patient awake at this time. As per him he has no pain at this time. Informed him about his antiretroviral medication, as per him it is in his car which is parked in the hospital [facility] parking and he has no one to get it from him. Will inform the morning nurse.
--- NOTE | 2019-07-15 06:00 | NUR ---
NURSE NOTES: Patient asleep. Nitroglycerin drip at 25mcg/min. BP 140s mmHg. Blood sugar checked and covered as per sliding scale. Temp 99.8F.
[2019-07-15] MEDS: Piperacillin/Tazobactam 3.375 GM in NS 110 ML IVPB SCH ×3 (06:05→21:23)
[2019-07-15] MEDS: HydrALAZINE 50mg tab ORAL SCH ×3 (06:06→21:29)
[2019-07-15] MEDS: NovoLOG Insulin Flexpen SUBQ SCH ×4 (06:07→21:25)
[2019-07-15 06:31] LABS: ANION GAP 11 mmol/L (5-15); BLOOD UREA NITROGEN 27 mg/dL (7-18); CALCIUM 7.6 MG/DL (8.5-10.1); CARBON DIOXIDE 23 MMOL/L (21-32); CHLORIDE 104 MMOL/L (98-107); CREATININE 1.9 MG/DL (0.55-1.30); SODIUM 137 MMOL/L (136-145)
--- NOTE | 2019-07-15 06:54 | NUR ---
NURSE NOTES: Received call from the lab staff. Troponin 20.630. not notified due to result is trending down.
--- NOTE | 2019-07-15 07:20 | NUR ---
NURSE NOTES: Received pt from TESSA Ramires. Pt is A/Ox4; able to make needs known. Denies any pain or SOB. 2LNC in place; breathing even and unlabored. SPo2 100%, RR 18. Patient is on heparin drip 11u/hr and nitroglycerin drip running at 25mcg/min. Next PTT blood draw at 0940am. LAC 18G and LAC 18G patent and asymptomatic. Pt is continent and uses urinal. Pt reports having antiviral medications in his car. Will retrieve medications w/security. Bed locked, alarmed and in lowest position. Will continue plan of care.
--- NOTE | 2019-07-15 07:28 | NUR ---
HAND-OFF: Report given to Suze Esquivel Informed her regarding patient's anti retroviral medication [place] [facility] [place] [facility]
[2019-07-15] MEDS: Aspirin Baby 81mg ORAL SCH (08:04)
[2019-07-15] MEDS: Metoprolol 25mg tab ORAL SCH ×2 (08:04→21:30)
[2019-07-15] MEDS: Losartan 50mg tab ORAL SCH (08:04)
[2019-07-15] MEDS: Levemir Flexpen SUBQ SCH ×2 (09:50→21:24)
[2019-07-15] MEDS ORDERED: Vancomycin 1.5gm/NS Premix q24h IVPB SCH (10:00)
--- NOTE | 2019-07-15 10:13 | NUR ---
NURSE NOTES: Patient reports having antiviral medications in his car. Received verbal permission from patient to retrieve medications from his car in the [facility]. This RN and a security personnel went to retrieve medications. Medication was found to be in a plastic bag infested with bed bugs. Notified CN and house sup. Per hospital protocol, unable to open plastic bag and medications remains in patient's car. Pt reports taking Isentress 400mg BID and Intelence 400mg BID. PMD notified and would like to continue them as inpatient meds. [facility] is closed today so will remind PMD tomorrow to call in for prescription. Addendum: 07/15/19 at 1022 by DORA KENT RN Contact isolation already in place. Will reinforce and update isolation assessment. Addendum: 07/15/19 at 1344 by DORA KENT RN All belongings at bedside placed in red biohazard bag and security tied.
[2019-07-15] MEDS ORDERED: Calcium Gluconate 1gm/10ml vial IVP SCH (11:01)
--- NOTE | 2019-07-15 11:14 | NUR ---
NURSE NOTES: [id number], per protocol stop heparin gtt for 30 minutes and restart heparin gtt at 1100AM running at 8mcg/kg/hr. PTT lab draw ordered for 1700 per protocol.
--- NOTE | 2019-07-15 11:49 | Pulmonolgy Critical Care Note ---
Critical Care - Asmt/Plan Problems: (1) NSTEMI (non-ST elevated myocardial infarction) (2) Acute coronary syndrome (3) Hypoxia (4) MDD (major depressive disorder), recurrent episode, moderate (5) HIV (human immunodeficiency virus infection) (6) History of acute respiratory failure (7) CKD (chronic kidney disease) (8) Diabetes Respiratory: monitor respiratory rate, weaning trial Cardiac: continue to monitor HR/BP, other - IVUH, trend trops, TTE, nitro gtt, cards eval pending, plan to transfer to [facility] for [facility] Renal: check electrolytes, other - Diuresis as able Infectious Disease: check cultures, continue antibiotics, other - cART Gastrointestinal: other - NPO until seen by cards in case needs cath Endocrine: monitor blood sugar, continue sliding scale insulin Hematologic: monitor H/H Neurologic: keep patient comfortable Prophylaxis: Protonix, Heparin - IVUH Disposition: keep in ICU Time Spent (Minutes): 40 Notes Reviewed: certified nurse practitioner Discussed with: nurses, consultants Critical Care - Objective Last 24 Hour Vital Signs Date Time Temp Pulse Resp B/P (MAP) Pulse Ox O2 Delivery O2 Flow Rate FiO2 07/15/19 11:15 99.9 90 19 139/64 100 Nasal Cannula 2.0 07/15/19 11:00 90 16 135/66 100 Nasal Cannula 2.0 07/15/19 10:30 100.1 90 29 136/64 99 Nasal Cannula 2.0 07/15/19 10:00 93 29 132/64 99 Nasal Cannula 2.0 07/15/19 09:30 97 29 132/65 99 Nasal Cannula 2.0 07/15/19 09:00 97 29 120/55 99 Nasal Cannula 2.0 07/15/19 08:34 100.3 07/15/19 08:30 102 32 136/70 98 Nasal Cannula 2.0 07/15/19 08:15 103 18 142/72 100 Nasal Cannula 2.0 07/15/19 08:04 103 144/76 07/15/19 08:04 144/76 07/15/19 08:00 Nasal Cannula 2.0 07/15/19 08:00 108 24 142/69 98 Nasal Cannula 2.0 07/15/19 08:00 94 07/15/19 07:45 103 18 125/65 99 Nasal Cannula 2.0 07/15/19 07:30 105 18 136/66 99 Nasal Cannula 2.0 07/15/19 07:15 103 19 126/64 99 Nasal Cannula 2.0 07/15/19 07:00 100.3 103 19 145/65 100 Nasal Cannula 2.0 07/15/19 06:30 103 19 144/76 99 Nasal Cannula 2.0 07/15/19 06:15 103 19 163/78 99 Nasal Cannula 2.0 07/15/19 06:06 157/72 07/15/19 06:00 99.8 104 20 157/72 98 Nasal Cannula 2.0 07/15/19 05:45 104 19 160/78 98 Nasal Cannula 2.0 07/15/19 05:30 104 20 168/79 98 Nasal Cannula 2.0 07/15/19 05:15 104 20 147/79 97 Nasal Cannula 2.0 07/15/19 05:00 104 19 148/75 97 Nasal Cannula 2.0 07/15/19 04:45 104 20 150/77 97 Nasal Cannula 2.0 07/15/19 04:30 104 20 159/73 96 Nasal Cannula 2.0 07/15/19 04:15 103 19 151/75 97 Nasal Cannula 2.0 07/15/19 04:00 103 07/15/19 04:00 Nasal Cannula 2.0 07/15/19 04:00 100.3 104 20 154/73 97 Nasal Cannula 2.0 07/15/19 03:45 103 18 150/68 97 Nasal Cannula 2.0 07/15/19 03:30 101 20 152/74 95 Nasal Cannula 2.0 07/15/19 03:15 101 20 139/71 99 Nasal Cannula 2.0 07/15/19 03:00 100 19 135/69 93 Nasal Cannula 2.0 07/15/19 02:45 100 19 123/68 93 Nasal Cannula 2.0 07/15/19 02:30 100 20 128/68 95 Nasal Cannula 2.0 07/15/19 02:15 100 20 129/68 93 Nasal Cannula 2.0 07/15/19 02:00 100 20 131/67 93 Nasal Cannula 2.0 07/15/19 01:45 100 20 131/70 92 Nasal Cannula 2.0 07/15/19 01:30 100 20 126/66 95 Nasal Cannula 2.0 07/15/19 01:00 99.7 100 21 128/69 98 Nasal Cannula 2.0 07/15/19 00:45 102 20 131/71 100 Nasal Cannula 2.0 07/15/19 00:30 102 20 133/66 100 Nasal Cannula 2.0 07/15/19 00:15 20 134/74 99 Nasal Cannula 2.0 07/15/19 00:00 100.1 103 21 137/74 99 Nasal Cannula 2.0 07/15/19 00:00 Nasal Cannula 2.0 07/15/19 00:00 103 07/14/19 23:30 100.1 104 21 152/76 99 Nasal Cannula 07/14/19 23:15 104 22 133/74 100 Nasal Cannula 07/14/19 23:00 104 22 144/80 100 Nasal Cannula 07/14/19 22:45 104 22 143/73 100 Nasal Cannula 07/14/19 22:30 104 23 142/73 99 Nasal Cannula 07/14/19 22:27 133/66 07/14/19 22:25 133/66 07/14/19 22:15 105 24 133/66 99 Nasal Cannula 07/14/19 22:00 100.7 106 25 135/68 98 Nasal Cannula 07/14/19 21:45 107 24 135/72 98 Nasal Cannula 07/14/19 21:30 108 24 139/75 98 Nasal Cannula 07/14/19 21:21 97 24 100 Nasal Cannula 2.0 07/14/19 21:15 108 25 145/80 97 Nasal Cannula 07/14/19 21:01 Nasal Cannula 2.0 07/14/19 21:00 109 23 162/79 97 Nasal Cannula 109 07/14/19 20:45 113 28 177/83 93 113 07/14/19 20:30 116 07/14/19 20:30 100.5 117 30 177/90 90 Nasal Cannula 2.0 117 07/14/19 20:20 98.2 107 25 156/81 100 Bi-pap 50 107 07/14/19 20:16 100 Nasal Cannula 2.0 28 07/14/19 19:58 98.6 107 25 156/81 100 Bi-pap 50 107 07/14/19 19:34 111 128/75 07/14/19 19:20 115 145/84 07/14/19 19:06 98.4 115 22 145/84 100 Bi-pap 50 07/14/19 18:49 98.9 116 31 176/97 100 Bi-pap 07/14/19 18:43 117 200/101 07/14/19 18:35 114 29 100 Facial 50 Bi-Pap 50 07/14/19 18:30 98.5 120 31 200/101 95 Room Air 07/14/19 18:23 176/87 07/14/19 18:14 98.6 07/14/19 18:00 98.8 27 176/87 89 Room Air 07/14/19 17:39 98.6 07/14/19 17:08 160/72 07/14/19 16:21 101.8 16 162/75 96 Room Air 07/14/19 16:21 107 16 Room Air 07/14/19 16:13 101.8 107 16 162/75 (104) 96 Room Air Status: awake Condition: critical HEENT: atraumatic, normocephalic Neck: full ROM Lungs: rales - BiB Heart: HR/BP stable Abdomen: soft, non-tender, active bowel sounds Extremities: edema - trace Micro: Microbiology Date/Time Source Procedure Growth Status 07/14/19 19:50 Nasal Nares - Final Complete 07/14/19 19:50 Nasal Nares - Final Complete Accucheck: 184 Blood Sugars: BS controlled Critical Care - Subjective ROS Limited/Unobtainable: Yes ICU Day: 2 Intubation Day: N/A Interval Events: 58 M h/o HIV, prior trach, CAD, DM who lives in his car p/w several days of fevers, generalized malaise and atypical CP, + NSTEMI with inc trop, started on BiPAP initially and nitro gtt, transferred to the ICU. Condition: critical IV Access: peripheral EKG Rhythm: Sinus Rhythm FI02: 50 Sputum Amount: None Drips: Nitro I&O: Intake and Output 07/14/19 07/15/19 18:59 06:59 Intake Total 385 ml 524.832 ml Output Total 1050 ml Balance 385 ml -525.168 ml Intake Oral 100 ml IV Total 385 ml 424.832 ml Output Urine Total 1050 ml # Voids 3 CXR: PVC Labs: Laboratory Tests Test 07/14/19 17:18 07/15/19 01:06 07/15/19 06:06 07/15/19 09:45 White Blood Count 5.0 K/UL (4.8-10.8) Red Blood Count 3.39 M/UL (4.70-6.10) L Hemoglobin 10.0 G/DL (14.2-18.0) L Hematocrit 30.2 % (42.0-52.0) L Mean Corpuscular Volume 89 FL (80-99) Mean Corpuscular Hemoglobin 29.7 PG (27.0-31.0) Mean Corpuscular Hemoglobin Concent 33.2 G/DL (32.0-36.0) Red Cell Distribution Width 11.8 % (11.6-14.8) Platelet Count 117 K/UL (150-450) L Mean Platelet Volume 6.0 FL (6.5-10.1) L Neutrophils (%) (Auto) 67.8 % (45.0-75.0) Lymphocytes (%) (Auto) 17.5 % (20.0-45.0) L Monocytes (%) (Auto) 13.6 % (1.0-10.0) H Eosinophils (%) (Auto) 0.6 % (0.0-3.0) Basophils (%) (Auto) 0.5 % (0.0-2.0) Prothrombin Time 10.7 SEC (9.30-11.50) Prothromb Time International Ratio 1.0 (0.9-1.1) Activated Partial Thromboplast Time 38 SEC (23-33) H 108 SEC (23-33) H Urine Color Pale yellow Urine Appearance Clear Urine pH 5 (4.5-8.0) Urine Specific [place] 1.015 (1.005-1.035) Urine Protein 3+ (NEGATIVE) H Urine Glucose (UA) Negative (NEGATIVE) Urine Ketones Negative (NEGATIVE) Urine Blood 2+ (NEGATIVE) H Urine Nitrite Negative (NEGATIVE) Urine Bilirubin Negative (NEGATIVE) Urine Urobilinogen Normal MG/DL (0.0-1.0) Urine Leukocyte Esterase Negative (NEGATIVE) Urine RBC 2-4 /HPF (0 - 0) H Urine WBC 0-2 /HPF (0 - 0) Urine Squamous Epithelial Cells None /LPF (NONE/OCC) Urine Bacteria Few /HPF (NONE) Sodium Level 134 MMOL/L (136-145) L 137 MMOL/L (136-145) Potassium Level 4.5 MMOL/L (3.5-5.1) 4.0 MMOL/L (3.5-5.1) Chloride Level 101 MMOL/L (98-107) 104 MMOL/L (98-107) Carbon Dioxide Level 27 MMOL/L (21-32) 23 MMOL/L (21-32) Anion Gap 6 mmol/L (5-15) 11 mmol/L (5-15) Blood Urea Nitrogen 25 mg/dL (7-18) H 27 mg/dL (7-18) H Creatinine 1.9 MG/DL (0.55-1.30) H 1.9 MG/DL (0.55-1.30) H Estimat Glomerular Filtration Rate 36.5 mL/min (>60) 36.5 mL/min (>60) Glucose Level 151 MG/DL (74-106) H 171 MG/DL (74-106) H Lactic Acid Level 0.90 mmol/L (0.4-2.0) Calcium Level 7.7 MG/DL (8.5-10.1) L 7.6 MG/DL (8.5-10.1) L Magnesium Level 1.8 MG/DL (1.8-2.4) 1.6 MG/DL (1.8-2.4) L Total Bilirubin 0.2 MG/DL (0.2-1.0) Aspartate Amino Transf (AST/SGOT) 34 U/L (15-37) Alanine Aminotransferase (ALT/SGPT) 43 U/L (12-78) Alkaline Phosphatase 130 U/L (46-116) H Total Creatine Kinase 212 U/L (26-308) Troponin I 0.339 ng/mL (0.000-0.056) 21.791 ng/mL (0.000-0.056) 20.630 ng/mL (0.000-0.056) 20.864 ng/mL (0.000-0.056) Pro-B-Type Natriuretic Peptide 4687 pg/mL (0-125) H Total Protein 7.0 G/DL (6.4-8.2) Albumin 3.6 G/DL (3.4-5.0) Globulin 3.4 g/dL Albumin/Globulin Ratio 1.1 (1.0-2.7) Lipase 197 U/L (73393) Random Vancomycin Level 10.3 ug/mL Brett Meredith MD Jul 15, 2019 11:49
--- NOTE | 2019-07-15 12:17 | History and Physical ---
History of Present Illness General Date patient seen: Jul 15, 2019 Time patient seen: 10:30 Reason for Hospitalization: Upper Respiratory Illness Present Illness SURI villasenor is a 58-year-old male past medical history of HIV compliant on heart medication, CAD, hypertension, dyslipidemia who presented last night for fever and intermittent chest pain for the past 6 months. Patient states he was at [facility] last week where he had a angiogram that showed three- vessel disease and he was recommended for CABG. No stents were placed given complete occlusion. Patient says that he has been having intermittent positional chest pain since 6 months ago currently not in any pain. Patient was given nitro in the ED overnight without resolution of pain. Patient also presented with fever of 100.3. Admits to sick contacts at [facility] last week. Admits to cough with phlegm for last several days. Denies any myalgias, abdominal pain, nausea, vomiting, diarrhea, dysuria. Patient was found to have an initial troponin of 0.3 I placed on nitro drip and heparin drip admitted to the ICU troponins of elevated to 20 this morning although patient denies chest pain. Patient was also started on vancomycin and Zosyn for fever of 100.3. Also hypoxic on room air at 74% and placed on BiPAP. After adequate diuresis patient has been weaned off BiPAP and is now on 2 L nasal cannula with SPO2 over 90%. Allergies: Coded Allergies: No Known Allergies (Unverified , 02/05/13) Medication History Scheduled Acetaminophen* (Acetaminophen Extra Strength*), 500 MG ORAL Q6H, (Reported) Artificial Tears (Refresh Lacri-Lube Ointment), 1 APPLIC BOTH EYES AC+HS Aspirin Ec* (Aspirin Ec*), 81 MG ORAL DAILY Biotin (Biotin), 5,000 MCG PO DAILY, (Reported) Duloxetine Hcl* (Cymbalta*), 90 MG ORAL DAILY, (Reported) Etravirine* (Intelence*), 400 MG ORAL DAILY, (Reported) Ezetimibe (Zetia*), 10 MG ORAL BEDTIME, (Reported) Ferrous Sulfate* (Ferrous Sulfate*), 325 MG ORAL THREE TIMES A DAY, (Reported) Folic Acid (Folic Acid), 1 MG PO BID, (Reported) Hydralazine HCl (Hydralazine HCl), 50 MG NG Q8HR Insulin Aspart (Novolog Flexpen), 0 UNITS SUBQ EVERY 6 HOURS Insulin Detemir (Levemir Flexpen), 14 UNITS SUBQ Q12HR Ipratropium/Albuterol Sulfate (DuoNeb 0.5-3(2.5)mg/3ml), 3 ML HHN Q6HRT Isosorbide Mononitrate (Isosorbide Mononitrate Er), 30 MG PO DAILY, (Reported) Lamotrigine (Lamotrigine), 200 MG PO QHS, (Reported) Lansoprazole* (Lansoprazole*), 15 MG ORAL BID, (Reported) Losartan Potassium* (Losartan Potassium*), 100 MG ORAL DAILY, (Reported) Metoprolol Tartrate (Metoprolol Tartrate), 25 MG ORAL Q12HR Nateglinide (Starlix), 120 MG ORAL THREE TIMES A DAY, (Reported) Raltegravir (Isentress), 400 MG ORAL EVERY 12 HOURS, (Reported) Sitagliptin* (Januvia*), 100 MG ORAL DAILY, (Reported) Sitagliptin* (Januvia*), 100 MG ORAL DAILY, (Reported) Vitamin B Complex (Vitamin B Complex), 1 EACH PO DAILY, (Reported) Vitamin D (Vitamin D3), 400 UNITS ORAL DAILY, (Reported) Scheduled PRN Butalb/Acetaminophen/Caffeine (Gpoxwd-Bgdkmeao-Zjne 50-325-40), 1 EACH PO BID PRN for For Pain, (Reported) Cetirizine Hcl* (Zyrtec*), 10 MG ORAL DAILY PRN for Itching, (Reported) Docusate Sodium (Docusate Sodium), 100 MG ORAL TWICE A DAY PRN for Constipation, (Reported) Miscellaneous Medications Guaifenesin (Mucinex), 100 MG PO, (Reported) Discontinued Medications [Patient's Own Med], 1 EA ORAL DAILY Discontinued Reason: Pt stopped taking med [Patient's Own Med], 1 EA ORAL BID Discontinued Reason: Pt stopped taking med [Patient's Own Med], 1 EA ORAL BID Discontinued Reason: Pt stopped taking med Patient History Healthcare decision maker Resuscitation status Advanced Directive on File Family History Family History: In first degree relatives is unremarkable Review of Systems ROS Narrative All review of systems negative including more than 12 systems aside from HPI Physical Exam Last 24 Hour Vital Signs Date Time Temp Pulse Resp B/P (MAP) Pulse Ox O2 Delivery O2 Flow Rate FiO2 07/15/19 11:15 99.9 90 19 139/64 100 Nasal Cannula 2.0 07/15/19 11:00 90 16 135/66 100 Nasal Cannula 2.0 07/15/19 10:30 100.1 90 29 136/64 99 Nasal Cannula 2.0 07/15/19 10:00 93 29 132/64 99 Nasal Cannula 2.0 07/15/19 09:30 97 29 132/65 99 Nasal Cannula 2.0 07/15/19 09:00 97 29 120/55 99 Nasal Cannula 2.0 07/15/19 08:34 100.3 07/15/19 08:30 102 32 136/70 98 Nasal Cannula 2.0 07/15/19 08:15 103 18 142/72 100 Nasal Cannula 2.0 07/15/19 08:04 103 144/76 07/15/19 08:04 144/76 07/15/19 08:00 Nasal Cannula 2.0 07/15/19 08:00 108 24 142/69 98 Nasal Cannula 2.0 07/15/19 08:00 94 07/15/19 07:45 103 18 125/65 99 Nasal Cannula 2.0 07/15/19 07:30 105 18 136/66 99 Nasal Cannula 2.0 07/15/19 07:15 103 19 126/64 99 Nasal Cannula 2.0 07/15/19 07:00 100.3 103 19 145/65 100 Nasal Cannula 2.0 07/15/19 06:30 103 19 144/76 99 Nasal Cannula 2.0 07/15/19 06:15 103 19 163/78 99 Nasal Cannula 2.0 07/15/19 06:06 157/72 07/15/19 06:00 99.8 104 20 157/72 98 Nasal Cannula 2.0 07/15/19 05:45 104 19 160/78 98 Nasal Cannula 2.0 07/15/19 05:30 104 20 168/79 98 Nasal Cannula 2.0 07/15/19 05:15 104 20 147/79 97 Nasal Cannula 2.0 07/15/19 05:00 104 19 148/75 97 Nasal Cannula 2.0 07/15/19 04:45 104 20 150/77 97 Nasal Cannula 2.0 07/15/19 04:30 104 20 159/73 96 Nasal Cannula 2.0 07/15/19 04:15 103 19 151/75 97 Nasal Cannula 2.0 07/15/19 04:00 103 07/15/19 04:00 Nasal Cannula 2.0 07/15/19 04:00 100.3 104 20 154/73 97 Nasal Cannula 2.0 07/15/19 03:45 103 18 150/68 97 Nasal Cannula 2.0 07/15/19 03:30 101 20 152/74 95 Nasal Cannula 2.0 07/15/19 03:15 101 20 139/71 99 Nasal Cannula 2.0 07/15/19 03:00 100 19 135/69 93 Nasal Cannula 2.0 07/15/19 02:45 100 19 123/68 93 Nasal Cannula 2.0 07/15/19 02:30 100 20 128/68 95 Nasal Cannula 2.0 07/15/19 02:15 100 20 129/68 93 Nasal Cannula 2.0 07/15/19 02:00 100 20 131/67 93 Nasal Cannula 2.0 07/15/19 01:45 100 20 131/70 92 Nasal Cannula 2.0 07/15/19 01:30 100 20 126/66 95 Nasal Cannula 2.0 07/15/19 01:00 99.7 100 21 128/69 98 Nasal Cannula 2.0 07/15/19 00:45 102 20 131/71 100 Nasal Cannula 2.0 07/15/19 00:30 102 20 133/66 100 Nasal Cannula 2.0 07/15/19 00:15 20 134/74 99 Nasal Cannula 2.0 07/15/19 00:00 100.1 103 21 137/74 99 Nasal Cannula 2.0 07/15/19 00:00 Nasal Cannula 2.0 07/15/19 00:00 103 07/14/19 23:30 100.1 104 21 152/76 99 Nasal Cannula 07/14/19 23:15 104 22 133/74 100 Nasal Cannula 07/14/19 23:00 104 22 144/80 100 Nasal Cannula 07/14/19 22:45 104 22 143/73 100 Nasal Cannula 07/14/19 22:30 104 23 142/73 99 Nasal Cannula 07/14/19 22:27 133/66 07/14/19 22:25 133/66 07/14/19 22:15 105 24 133/66 99 Nasal Cannula 07/14/19 22:00 100.7 106 25 135/68 98 Nasal Cannula 07/14/19 21:45 107 24 135/72 98 Nasal Cannula 07/14/19 21:30 108 24 139/75 98 Nasal Cannula 07/14/19 21:21 97 24 100 Nasal Cannula 2.0 28 07/14/19 21:15 108 25 145/80 97 Nasal Cannula 07/14/19 21:01 Nasal Cannula 2.0 07/14/19 21:00 109 23 162/79 97 Nasal Cannula 109 07/14/19 20:45 113 28 177/83 93 113 07/14/19 20:30 116 07/14/19 20:30 100.5 117 30 177/90 90 Nasal Cannula 2.0 117 07/14/19 20:20 98.2 107 25 156/81 100 Bi-pap 50 107 07/14/19 20:16 100 Nasal Cannula 2.0 28 07/14/19 19:58 98.6 107 25 156/81 100 Bi-pap 50 107 07/14/19 19:34 111 128/75 07/14/19 19:20 115 145/84 07/14/19 19:06 98.4 115 22 145/84 100 Bi-pap 50 07/14/19 18:49 98.9 116 31 176/97 100 Bi-pap 07/14/19 18:43 117 200/101 07/14/19 18:35 114 29 100 Facial 50 Bi-Pap 50 07/14/19 18:30 98.5 120 31 200/101 95 Room Air 07/14/19 18:23 176/87 07/14/19 18:14 98.6 07/14/19 18:00 98.8 27 176/87 89 Room Air 07/14/19 17:39 98.6 07/14/19 17:08 160/72 07/14/19 16:21 101.8 16 162/75 96 Room Air 07/14/19 16:21 107 16 Room Air 07/14/19 16:13 101.8 107 16 162/75 (104) 96 Room Air Intake and Output 07/14/19 07/15/19 18:59 06:59 Intake Total 385 ml 524.832 ml Output Total 1050 ml Balance 385 ml -525.168 ml Intake Oral 100 ml IV Total 385 ml 424.832 ml Output Urine Total 1050 ml # Voids 3 Laboratory Tests Test 07/14/19 17:18 07/15/19 01:06 07/15/19 06:06 07/15/19 09:45 White Blood Count 5.0 K/UL (4.8-10.8) Red Blood Count 3.39 M/UL (4.70-6.10) L Hemoglobin 10.0 G/DL (14.2-18.0) L Hematocrit 30.2 % (42.0-52.0) L Mean Corpuscular Volume 89 FL (80-99) Mean Corpuscular Hemoglobin 29.7 PG (27.0-31.0) Mean Corpuscular Hemoglobin Concent 33.2 G/DL (32.0-36.0) Red Cell Distribution Width 11.8 % (11.6-14.8) Platelet Count 117 K/UL (150-450) L Mean Platelet Volume 6.0 FL (6.5-10.1) L Neutrophils (%) (Auto) 67.8 % (45.0-75.0) Lymphocytes (%) (Auto) 17.5 % (20.0-45.0) L Monocytes (%) (Auto) 13.6 % (1.0-10.0) H Eosinophils (%) (Auto) 0.6 % (0.0-3.0) Basophils (%) (Auto) 0.5 % (0.0-2.0) Prothrombin Time 10.7 SEC (9.30-11.50) Prothromb Time International Ratio 1.0 (0.9-1.1) Activated Partial Thromboplast Time 38 SEC (23-33) H 108 SEC (23-33) H Urine Color Pale yellow Urine Appearance Clear Urine pH 5 (4.5-8.0) Urine Specific [place] 1.015 (1.005-1.035) Urine Protein 3+ (NEGATIVE) H Urine Glucose (UA) Negative (NEGATIVE) Urine Ketones Negative (NEGATIVE) Urine Blood 2+ (NEGATIVE) H Urine Nitrite Negative (NEGATIVE) Urine Bilirubin Negative (NEGATIVE) Urine Urobilinogen Normal MG/DL (0.0-1.0) Urine Leukocyte Esterase Negative (NEGATIVE) Urine RBC 2-4 /HPF (0 - 0) H Urine WBC 0-2 /HPF (0 - 0) Urine Squamous Epithelial Cells None /LPF (NONE/OCC) Urine Bacteria Few /HPF (NONE) Sodium Level 134 MMOL/L (136-145) L 137 MMOL/L (136-145) Potassium Level 4.5 MMOL/L (3.5-5.1) 4.0 MMOL/L (3.5-5.1) Chloride Level 101 MMOL/L (98-107) 104 MMOL/L (98-107) Carbon Dioxide Level 27 MMOL/L (21-32) 23 MMOL/L (21-32) Anion Gap 6 mmol/L (5-15) 11 mmol/L (5-15) Blood Urea Nitrogen 25 mg/dL (7-18) H 27 mg/dL (7-18) H Creatinine 1.9 MG/DL (0.55-1.30) H 1.9 MG/DL (0.55-1.30) H Estimat Glomerular Filtration Rate 36.5 mL/min (>60) 36.5 mL/min (>60) Glucose Level 151 MG/DL (74-106) H 171 MG/DL (74-106) H Lactic Acid Level 0.90 mmol/L (0.4-2.0) Calcium Level 7.7 MG/DL (8.5-10.1) L 7.6 MG/DL (8.5-10.1) L Magnesium Level 1.8 MG/DL (1.8-2.4) 1.6 MG/DL (1.8-2.4) L Total Bilirubin 0.2 MG/DL (0.2-1.0) Aspartate Amino Transf (AST/SGOT) 34 U/L (15-37) Alanine Aminotransferase (ALT/SGPT) 43 U/L (12-78) Alkaline Phosphatase 130 U/L (46-116) H Total Creatine Kinase 212 U/L (26-308) Troponin I 0.339 ng/mL (0.000-0.056) 21.791 ng/mL (0.000-0.056) 20.630 ng/mL (0.000-0.056) 20.864 ng/mL (0.000-0.056) Pro-B-Type Natriuretic Peptide 4687 pg/mL (0-125) H Total Protein 7.0 G/DL (6.4-8.2) Albumin 3.6 G/DL (3.4-5.0) Globulin 3.4 g/dL Albumin/Globulin Ratio 1.1 (1.0-2.7) Lipase 197 U/L (73-393) Random Vancomycin Level 10.3 ug/mL Microbiology Date/Time Source Procedure Growth Status 07/14/19 19:50 Nasal Nares - Final Complete 07/14/19 19:50 Nasal Nares - Final Complete Height (Feet): 6 Weight (Pounds): 207 Medications Current Medications Medications (Trade) Dose Ordered Sig/Marquis Route PRN Reason Start Time Stop Time Status Last Admin Dose Admin Acetaminophen (Tylenol) 650 mg Q6H PRN ORAL Mild Pain/Temp > 100.5 07/14/19 21:30 08/13/19 21:29 07/15/19 08:04 Aspirin (ASA) 81 mg DAILY ORAL 07/15/19 09:00 08/14/19 08:59 07/15/19 08:04 Calcium Gluconate (Calcium Gluconate 10%) 1 gm ONCE IVP 07/15/19 11:01 07/15/19 12:30 07/15/19 11:21 Dextrose (Dextrose 50%) 25 ml Q30M PRN IV Hypoglycemia 07/14/19 21:30 08/13/19 21:29 Dextrose (Dextrose 50%) 50 ml Q30M PRN IV Hypoglycemia 07/14/19 21:30 08/13/19 21:29 Furosemide (Lasix) 40 mg EVERY 12 HOURS IV 07/15/19 09:00 08/14/19 08:59 07/15/19 08:07 Heparin Sodium/ Dextrose 500 ml @ 15.023 mls/ hr ADJUST PER PROTOCOL IV 07/15/19 11:00 08/14/19 10:59 07/15/19 11:10 Hydralazine HCl (Apresoline) 50 mg Q8HR ORAL 07/14/19 22:00 08/13/19 21:59 07/15/19 06:06 Insulin Aspart (NovoLOG) BEFORE MEALS AND HS SUBQ 07/15/19 06:30 08/14/19 06:29 07/15/19 06:07 Insulin Detemir (Levemir) 14 units Q12HR SUBQ 07/15/19 09:00 08/14/19 08:59 07/15/19 09:50 Losartan Potassium (Cozaar) 100 mg DAILY ORAL 07/15/19 09:00 08/14/19 08:59 07/15/19 08:04 Magnesium Sulfate 100 ml @ 100 mls/hr Q1H IVPB 07/15/19 11:00 07/15/19 14:59 07/15/19 11:21 Metoprolol Tartrate (Lopressor) 25 mg Q12HR ORAL 07/15/19 09:00 08/14/19 08:59 07/15/19 08:04 Nitroglycerin 250 ml @ 0 mls/hr Q24H IV 07/14/19 21:30 08/13/19 21:29 07/14/19 22:25 Ondansetron HCl (Zofran) 4 mg Q6H PRN IVP Nausea & Vomiting 07/14/19 21:30 08/13/19 21:29 Piperacillin Sod/ Tazobactam Sod 3.375 gm/Sodium Chloride 110 ml @ 27.5 mls/hr EVERY 8 HOURS IVPB 07/14/19 22:00 07/19/19 21:59 07/15/19 06:05 Raltegravir (Isentress) 400 mg EVERY 12 HOURS ORAL 07/15/19 21:00 08/14/19 20:59 UNV Vancomycin HCl (Vanco rx to dose) 1 ea DAILY PRN MISC Per rx protocol 07/14/19 21:30 08/13/19 21:29 Vancomycin/Sodium Chloride 275 ml @ 137.5 mls/ hr ONCE IVPB 07/15/19 10:00 07/15/19 12:00 07/15/19 09:48 Objective Narrative General: No acute distress, alert and oriented x3 HEENT: Clear conjunctiva, EOMI CV: Positive rub, S1-S2 no murmurs rubs or gallops regular rate and rhythm, no JVD RESP: Coarse breath sounds bilaterally, no crackles no wheezes ABD: Bowel sounds present all 4 quadrants, soft, nontender to palpation EXT: No clubbing cyanosis edema Assessment/Plan Diagnosis Sumrall I: 58-year-old male with past medical history of CAD, hypertension, dyslipidemia, HIV compliant on heart with a recent angiogram at [facility] 1 week ago showing three-vessel disease recommended for CABG #Elevated troponin secondary to NSTEMI plus minus myocarditis -Troponin 0.3 elevated to 28 has stabilized, continue checking troponins -EKG with ST depressions in lateral leads, no C. difficile elevation, continue checking EKGs -Echo with EF of 55 to 60%, questionable pericardial fluid -Continue heparin drip, nitro drip, aspirin statin, arb Urgent transfer to [facility] for direct admission to [facility], and process -Cardiology consult Dr. Palmer -Pulmonology consult Dr. Meredith #Hypoxic respiratory failure secondary to acute on chronic diastolic heart failure -Patient weaned from BiPAP to 2 L nasal cannula -Continue diuresis 40 mg IV Lasix twice daily -Pulmonary consult as above -Nebs as needed # Sepsis secondary to myocarditis as above versus other etiology -Follow-up of blood cultures, urine cultures, repeat chest x-ray -Continue antibiotics Zosyn vancomycin started 07/14/2019 #ISH versus CKD -Continue diuresis -Continue to monitor BMP -Monitor I/o #HIV on Jj therapy -Continue home medication I spent 76 minutes on this patient's case, and >50% was dedicated to counseling and/or care coordination. Leonor Lopez DO Jul 15, 2019 12:17
--- NOTE | 2019-07-15 12:19 | General Progress Note ---
Subjective Date patient seen: Jul 15, 2019 Allergies: Coded Allergies: No Known Allergies (Unverified , 02/05/13) Subjective Date of Discussion: 07/15/2019 A [id number] discussion with the patient regarding the patient's advanced care planning took place during this hospitalization on the above date. The discussion included the explanation and discussion of advance directives and associated forms/documents, as well as the patient's current code status. We also discussed at length the patient's medical conditions (both acute and chronic), general prognosis, treatment options, and goals of care. The following summarizes the discussion: Advance Care Planning/Goals of Care: - Will attempt to fill out an AD and/or POLST with the patient prior to discharge, if not already completed - Continue current evaluation and management of any acute and chronic medical issues - Will continue to support the patient/family - Will continue to discuss both short- and long-term goals of care DPOA-HC/Surrogate Decision Maker: None currently appointed Only family is mother who has dementia Code Status: Full Code Advanced Care Planning Forms/Documents Completed: Deferred until later encounter/visit A total of 16 minutes was spent on this discussion, including counseling, answering questions, and completing, if any, pertinent advanced care planning forms/documents. Time of note may not reflect time of encounter. Objective Last 24 Hour Vital Signs Date Time Temp Pulse Resp B/P (MAP) Pulse Ox O2 Delivery O2 Flow Rate FiO2 07/15/19 11:15 99.9 90 19 139/64 100 Nasal Cannula 2.0 07/15/19 11:00 90 16 135/66 100 Nasal Cannula 2.0 07/15/19 10:30 100.1 90 29 136/64 99 Nasal Cannula 2.0 07/15/19 10:00 93 29 132/64 99 Nasal Cannula 2.0 07/15/19 09:30 97 29 132/65 99 Nasal Cannula 2.0 07/15/19 09:00 97 29 120/55 99 Nasal Cannula 2.0 07/15/19 08:34 100.3 07/15/19 08:30 102 32 136/70 98 Nasal Cannula 2.0 07/15/19 08:15 103 18 142/72 100 Nasal Cannula 2.0 07/15/19 08:04 103 144/76 07/15/19 08:04 144/76 07/15/19 08:00 Nasal Cannula 2.0 07/15/19 08:00 108 24 142/69 98 Nasal Cannula 2.0 07/15/19 08:00 94 07/15/19 07:45 103 18 125/65 99 Nasal Cannula 2.0 07/15/19 07:30 105 18 136/66 99 Nasal Cannula 2.0 07/15/19 07:15 103 19 126/64 99 Nasal Cannula 2.0 07/15/19 07:00 100.3 103 19 145/65 100 Nasal Cannula 2.0 07/15/19 06:30 103 19 144/76 99 Nasal Cannula 2.0 07/15/19 06:15 103 19 163/78 99 Nasal Cannula 2.0 07/15/19 06:06 157/72 07/15/19 06:00 99.8 104 20 157/72 98 Nasal Cannula 2.0 07/15/19 05:45 104 19 160/78 98 Nasal Cannula 2.0 07/15/19 05:30 104 20 168/79 98 Nasal Cannula 2.0 07/15/19 05:15 104 20 147/79 97 Nasal Cannula 2.0 07/15/19 05:00 104 19 148/75 97 Nasal Cannula 2.0 07/15/19 04:45 104 20 150/77 97 Nasal Cannula 2.0 07/15/19 04:30 104 20 159/73 96 Nasal Cannula 2.0 07/15/19 04:15 103 19 151/75 97 Nasal Cannula 2.0 07/15/19 04:00 103 07/15/19 04:00 Nasal Cannula 2.0 07/15/19 04:00 100.3 104 20 154/73 97 Nasal Cannula 2.0 07/15/19 03:45 103 18 150/68 97 Nasal Cannula 2.0 07/15/19 03:30 101 20 152/74 95 Nasal Cannula 2.0 07/15/19 03:15 101 20 139/71 99 Nasal Cannula 2.0 07/15/19 03:00 100 19 135/69 93 Nasal Cannula 2.0 07/15/19 02:45 100 19 123/68 93 Nasal Cannula 2.0 07/15/19 02:30 100 20 128/68 95 Nasal Cannula 2.0 07/15/19 02:15 100 20 129/68 93 Nasal Cannula 2.0 07/15/19 02:00 100 20 131/67 93 Nasal Cannula 2.0 07/15/19 01:45 100 20 131/70 92 Nasal Cannula 2.0 07/15/19 01:30 100 20 126/66 95 Nasal Cannula 2.0 07/15/19 01:00 99.7 100 21 128/69 98 Nasal Cannula 2.0 07/15/19 00:45 102 20 131/71 100 Nasal Cannula 2.0 07/15/19 00:30 102 20 133/66 100 Nasal Cannula 2.0 07/15/19 00:15 20 134/74 99 Nasal Cannula 2.0 07/15/19 00:00 100.1 103 21 137/74 99 Nasal Cannula 2.0 07/15/19 00:00 Nasal Cannula 2.0 07/15/19 00:00 103 07/14/19 23:30 100.1 104 21 152/76 99 Nasal Cannula 07/14/19 23:15 104 22 133/74 100 Nasal Cannula 07/14/19 23:00 104 22 144/80 100 Nasal Cannula 07/14/19 22:45 104 22 143/73 100 Nasal Cannula 07/14/19 22:30 104 23 142/73 99 Nasal Cannula 07/14/19 22:27 133/66 07/14/19 22:25 133/66 07/14/19 22:15 105 24 133/66 99 Nasal Cannula 07/14/19 22:00 100.7 106 25 135/68 98 Nasal Cannula 07/14/19 21:45 107 24 135/72 98 Nasal Cannula 07/14/19 21:30 108 24 139/75 98 Nasal Cannula 07/14/19 21:21 97 24 100 Nasal Cannula 2.0 28 07/14/19 21:15 108 25 145/80 97 Nasal Cannula 07/14/19 21:01 Nasal Cannula 2.0 07/14/19 21:00 109 23 162/79 97 Nasal Cannula 109 07/14/19 20:45 113 28 177/83 93 113 07/14/19 20:30 116 07/14/19 20:30 100.5 117 30 177/90 90 Nasal Cannula 2.0 117 07/14/19 20:20 98.2 107 25 156/81 100 Bi-pap 50 107 07/14/19 20:16 100 Nasal Cannula 2.0 28 07/14/19 19:58 98.6 107 25 156/81 100 Bi-pap 50 107 07/14/19 19:34 111 128/75 07/14/19 19:20 115 145/84 07/14/19 19:06 98.4 115 22 145/84 100 Bi-pap 50 07/14/19 18:49 98.9 116 31 176/97 100 Bi-pap 07/14/19 18:43 117 200/101 07/14/19 18:35 114 29 100 Facial 50 Bi-Pap 50 07/14/19 18:30 98.5 120 31 200/101 95 Room Air 07/14/19 18:23 176/87 07/14/19 18:14 98.6 07/14/19 18:00 98.8 27 176/87 89 Room Air 07/14/19 17:39 98.6 07/14/19 17:08 160/72 07/14/19 16:21 101.8 16 162/75 96 Room Air 07/14/19 16:21 107 16 Room Air 07/14/19 16:13 101.8 107 16 162/75 (104) 96 Room Air Intake and Output 07/14/19 07/15/19 18:59 06:59 Intake Total 385 ml 524.832 ml Output Total 1050 ml Balance 385 ml -525.168 ml Intake Oral 100 ml IV Total 385 ml 424.832 ml Output Urine Total 1050 ml # Voids 3 Laboratory Tests 07/14/19 17:18: White Blood Count 5.0, Red Blood Count 3.39L, Hemoglobin 10.0L, Hematocrit 30.2L , Mean Corpuscular Volume 89, Mean Corpuscular Hemoglobin 29.7, Mean Corpuscular Hemoglobin Concent 33.2, Red Cell Distribution Width 11.8, Platelet Count 117L, Mean Platelet Volume 6.0L, Neutrophils (%) (Auto) 67.8, Lymphocytes (%) (Auto) 17.5L, Monocytes (%) (Auto) 13.6H, Eosinophils (%) (Auto) 0.6, Basophils (%) (Auto) 0.5, Prothrombin Time 10.7, Prothromb Time International Ratio 1.0, Activated Partial Thromboplast Time 38H, Urine Color Pale yellow, Urine Appearance Clear, Urine pH 5, Urine Specific [place] 1.015, Urine Protein 3+H, Urine Glucose (UA) Negative, Urine Ketones Negative, Urine Blood 2+H, Urine Nitrite Negative, Urine Bilirubin Negative, Urine Urobilinogen Normal, Urine Leukocyte Esterase Negative, Urine RBC 2-4H, Urine WBC 0-2, Urine Squamous Epithelial Cells None, Urine Bacteria Few, Sodium Level 134L, Potassium Level 4.5, Chloride Level 101, Carbon Dioxide Level 27, Anion Gap 6, Blood Urea Nitrogen 25H, Creatinine 1.9H, Estimat Glomerular Filtration Rate 36.5, Glucose Level 151H, Lactic Acid Level 0.90, Calcium Level 7.7L, Magnesium Level 1.8, Total Bilirubin 0.2, Aspartate Amino Transf (AST/SGOT) 34, Alanine Aminotransferase (ALT/SGPT) 43, Alkaline Phosphatase 130H, Total Creatine Kinase 212, Troponin I 0.339H, Pro-B-Type Natriuretic Peptide 4687H, Total Protein 7.0, Albumin 3.6, Globulin 3.4, Albumin/Globulin Ratio 1.1, Lipase 197 07/15/19 01:06: Troponin I 21.791H 07/15/19 06:06: Sodium Level 137, Potassium Level 4.0, Chloride Level 104, Carbon Dioxide Level 23, Anion Gap 11, Blood Urea Nitrogen 27H, Creatinine 1.9H, Estimat Glomerular Filtration Rate 36.5, Glucose Level 171H, Calcium Level 7.6L, Magnesium Level 1.6L, Troponin I 20.630H, Random Vancomycin Level 10.3 07/15/19 09:45: Activated Partial Thromboplast Time 108H, Troponin I 20.864H Height (Feet): 6 Weight (Pounds): 207 JohnGilbertobipin BERTRAND Jul 15, 2019 12:19
--- NOTE | 2019-07-15 12:42 | Cardiac Electrophysiology PN ---
Subjective Subjective Patient seen and examined. Dictated [id number] Awaiting transfer to [facility] for Cardiac cath DW [facility] Transfer CTR. No bed today Will recheck in am. Says had Cardiac Cath at [facility] last week and was told needs CABG Awaiting records. Objective Last 24 Hour Vital Signs Date Time Temp Pulse Resp B/P (MAP) Pulse Ox O2 Delivery O2 Flow Rate FiO2 07/15/19 11:15 99.9 90 19 139/64 100 Nasal Cannula 2.0 07/15/19 11:00 90 16 135/66 100 Nasal Cannula 2.0 07/15/19 10:30 100.1 90 29 136/64 99 Nasal Cannula 2.0 07/15/19 10:00 93 29 132/64 99 Nasal Cannula 2.0 07/15/19 09:30 97 29 132/65 99 Nasal Cannula 2.0 07/15/19 09:00 97 29 120/55 99 Nasal Cannula 2.0 07/15/19 08:34 100.3 07/15/19 08:30 102 32 136/70 98 Nasal Cannula 2.0 07/15/19 08:15 103 18 142/72 100 Nasal Cannula 2.0 07/15/19 08:04 103 144/76 07/15/19 08:04 144/76 07/15/19 08:00 Nasal Cannula 2.0 07/15/19 08:00 108 24 142/69 98 Nasal Cannula 2.0 07/15/19 08:00 94 07/15/19 07:45 103 18 125/65 99 Nasal Cannula 2.0 07/15/19 07:30 105 18 136/66 99 Nasal Cannula 2.0 07/15/19 07:15 103 19 126/64 99 Nasal Cannula 2.0 07/15/19 07:00 100.3 103 19 145/65 100 Nasal Cannula 2.0 07/15/19 06:30 103 19 144/76 99 Nasal Cannula 2.0 07/15/19 06:15 103 19 163/78 99 Nasal Cannula 2.0 07/15/19 06:06 157/72 07/15/19 06:00 99.8 104 20 157/72 98 Nasal Cannula 2.0 07/15/19 05:45 104 19 160/78 98 Nasal Cannula 2.0 07/15/19 05:30 104 20 168/79 98 Nasal Cannula 2.0 07/15/19 05:15 104 20 147/79 97 Nasal Cannula 2.0 07/15/19 05:00 104 19 148/75 97 Nasal Cannula 2.0 07/15/19 04:45 104 20 150/77 97 Nasal Cannula 2.0 07/15/19 04:30 104 20 159/73 96 Nasal Cannula 2.0 07/15/19 04:15 103 19 151/75 97 Nasal Cannula 2.0 07/15/19 04:00 103 07/15/19 04:00 Nasal Cannula 2.0 07/15/19 04:00 100.3 104 20 154/73 97 Nasal Cannula 2.0 07/15/19 03:45 103 18 150/68 97 Nasal Cannula 2.0 07/15/19 03:30 101 20 152/74 95 Nasal Cannula 2.0 07/15/19 03:15 101 20 139/71 99 Nasal Cannula 2.0 07/15/19 03:00 100 19 135/69 93 Nasal Cannula 2.0 07/15/19 02:45 100 19 123/68 93 Nasal Cannula 2.0 07/15/19 02:30 100 20 128/68 95 Nasal Cannula 2.0 07/15/19 02:15 100 20 129/68 93 Nasal Cannula 2.0 07/15/19 02:00 100 20 131/67 93 Nasal Cannula 2.0 07/15/19 01:45 100 20 131/70 92 Nasal Cannula 2.0 07/15/19 01:30 100 20 126/66 95 Nasal Cannula 2.0 07/15/19 01:00 99.7 100 21 128/69 98 Nasal Cannula 2.0 07/15/19 00:45 102 20 131/71 100 Nasal Cannula 2.0 07/15/19 00:30 102 20 133/66 100 Nasal Cannula 2.0 07/15/19 00:15 20 134/74 99 Nasal Cannula 2.0 07/15/19 00:00 100.1 103 21 137/74 99 Nasal Cannula 2.0 07/15/19 00:00 Nasal Cannula 2.0 07/15/19 00:00 103 07/14/19 23:30 100.1 104 21 152/76 99 Nasal Cannula 07/14/19 23:15 104 22 133/74 100 Nasal Cannula 07/14/19 23:00 104 22 144/80 100 Nasal Cannula 07/14/19 22:45 104 22 143/73 100 Nasal Cannula 07/14/19 22:30 104 23 142/73 99 Nasal Cannula 07/14/19 22:27 133/66 07/14/19 22:25 133/66 07/14/19 22:15 105 24 133/66 99 Nasal Cannula 07/14/19 22:00 100.7 106 25 135/68 98 Nasal Cannula 07/14/19 21:45 107 24 135/72 98 Nasal Cannula 07/14/19 21:30 108 24 139/75 98 Nasal Cannula 07/14/19 21:21 97 24 100 Nasal Cannula 2.0 28 07/14/19 21:15 108 25 145/80 97 Nasal Cannula 07/14/19 21:01 Nasal Cannula 2.0 07/14/19 21:00 109 23 162/79 97 Nasal Cannula 109 07/14/19 20:45 113 28 177/83 93 113 07/14/19 20:30 116 07/14/19 20:30 100.5 117 30 177/90 90 Nasal Cannula 2.0 117 07/14/19 20:20 98.2 107 25 156/81 100 Bi-pap 50 107 07/14/19 20:16 100 Nasal Cannula 2.0 28 07/14/19 19:58 98.6 107 25 156/81 100 Bi-pap 50 107 07/14/19 19:34 111 128/75 07/14/19 19:20 115 145/84 07/14/19 19:06 98.4 115 22 145/84 100 Bi-pap 50 07/14/19 18:49 98.9 116 31 176/97 100 Bi-pap 07/14/19 18:43 117 200/101 07/14/19 18:35 114 29 100 Facial 50 Bi-Pap 50 07/14/19 18:30 98.5 120 31 200/101 95 Room Air 07/14/19 18:23 176/87 07/14/19 18:14 98.6 07/14/19 18:00 98.8 27 176/87 89 Room Air 07/14/19 17:39 98.6 07/14/19 17:08 160/72 07/14/19 16:21 101.8 16 162/75 96 Room Air 07/14/19 16:21 107 16 Room Air 07/14/19 16:13 101.8 107 16 162/75 (104) 96 Room Air Intake and Output 07/14/19 07/15/19 18:59 06:59 Intake Total 385 ml 524.832 ml Output Total 1050 ml Balance 385 ml -525.168 ml Intake Oral 100 ml IV Total 385 ml 424.832 ml Output Urine Total 1050 ml # Voids 3 Laboratory Tests Test 07/14/19 17:18 07/15/19 01:06 07/15/19 06:06 07/15/19 09:45 White Blood Count 5.0 K/UL (4.8-10.8) Red Blood Count 3.39 M/UL (4.70-6.10) L Hemoglobin 10.0 G/DL (14.2-18.0) L Hematocrit 30.2 % (42.0-52.0) L Mean Corpuscular Volume 89 FL (80-99) Mean Corpuscular Hemoglobin 29.7 PG (27.0-31.0) Mean Corpuscular Hemoglobin Concent 33.2 G/DL (32.0-36.0) Red Cell Distribution Width 11.8 % (11.6-14.8) Platelet Count 117 K/UL (150-450) L Mean Platelet Volume 6.0 FL (6.5-10.1) L Neutrophils (%) (Auto) 67.8 % (45.0-75.0) Lymphocytes (%) (Auto) 17.5 % (20.0-45.0) L Monocytes (%) (Auto) 13.6 % (1.0-10.0) H Eosinophils (%) (Auto) 0.6 % (0.0-3.0) Basophils (%) (Auto) 0.5 % (0.0-2.0) Prothrombin Time 10.7 SEC (9.30-11.50) Prothromb Time International Ratio 1.0 (0.9-1.1) Activated Partial Thromboplast Time 38 SEC (23-33) H 108 SEC (23-33) H Urine Color Pale yellow Urine Appearance Clear Urine pH 5 (4.5-8.0) Urine Specific [place] 1.015 (1.005-1.035) Urine Protein 3+ (NEGATIVE) H Urine Glucose (UA) Negative (NEGATIVE) Urine Ketones Negative (NEGATIVE) Urine Blood 2+ (NEGATIVE) H Urine Nitrite Negative (NEGATIVE) Urine Bilirubin Negative (NEGATIVE) Urine Urobilinogen Normal MG/DL (0.0-1.0) Urine Leukocyte Esterase Negative (NEGATIVE) Urine RBC 2-4 /HPF (0 - 0) H Urine WBC 0-2 /HPF (0 - 0) Urine Squamous Epithelial Cells None /LPF (NONE/OCC) Urine Bacteria Few /HPF (NONE) Sodium Level 134 MMOL/L (136-145) L 137 MMOL/L (136-145) Potassium Level 4.5 MMOL/L (3.5-5.1) 4.0 MMOL/L (3.5-5.1) Chloride Level 101 MMOL/L (98-107) 104 MMOL/L (98-107) Carbon Dioxide Level 27 MMOL/L (21-32) 23 MMOL/L (21-32) Anion Gap 6 mmol/L (5-15) 11 mmol/L (5-15) Blood Urea Nitrogen 25 mg/dL (7-18) H 27 mg/dL (7-18) H Creatinine 1.9 MG/DL (0.55-1.30) H 1.9 MG/DL (0.55-1.30) H Estimat Glomerular Filtration Rate 36.5 mL/min (>60) 36.5 mL/min (>60) Glucose Level 151 MG/DL (74-106) H 171 MG/DL (74-106) H Lactic Acid Level 0.90 mmol/L (0.4-2.0) Calcium Level 7.7 MG/DL (8.5-10.1) L 7.6 MG/DL (8.5-10.1) L Magnesium Level 1.8 MG/DL (1.8-2.4) 1.6 MG/DL (1.8-2.4) L Total Bilirubin 0.2 MG/DL (0.2-1.0) Aspartate Amino Transf (AST/SGOT) 34 U/L (15-37) Alanine Aminotransferase (ALT/SGPT) 43 U/L (12-78) Alkaline Phosphatase 130 U/L (46-116) H Total Creatine Kinase 212 U/L (26-308) Troponin I 0.339 ng/mL (0.000-0.056) 21.791 ng/mL (0.000-0.056) 20.630 ng/mL (0.000-0.056) 20.864 ng/mL (0.000-0.056) Pro-B-Type Natriuretic Peptide 4687 pg/mL (0-125) H Total Protein 7.0 G/DL (6.4-8.2) Albumin 3.6 G/DL (3.4-5.0) Globulin 3.4 g/dL Albumin/Globulin Ratio 1.1 (1.0-2.7) Lipase 197 U/L (73-393) Random Vancomycin Level 10.3 ug/mL Microbiology Date/Time Source Procedure Growth Status 07/14/19 19:50 Nasal Nares - Final Complete 07/14/19 19:50 Nasal Nares - Final Complete Murray Francois MD Jul 15, 2019 12:42
--- NOTE | 2019-07-15 13:39 | NUR ---
NURSE NOTES: Dr. Francois making rounds at bedside. Notified him of troponin=20.630. No new orders given. Pt tolerated lunch well, ate 50. Pt requested diet soda. Pt is to be transferred to [facility], no bed available yet. Titrated nitroglycerin drip to 20mcg/min as patient's CP alleviated.
--- NOTE | 2019-07-15 13:46 | NUR ---
NURSE NOTES: Received orders for Plavix 75mg daily PO and Lipitor 80mg PO bedtime daily. Read back given and verified.
--- NOTE | 2019-07-15 13:48 | NUR ---
RD ASSESSMENT & RECOMMENDATIONS SEE CARE ACTIVITY FOR COMPLETE ASSESSMENT DAILY ESTIMATED NEEDS: Needs based on sepsis, HIV, DM/ 84kg adj 25-30 kcals/kg 2100- 2520 total kcals 1.25-2 g protein/kg 105- 168 g total protein 25-30 mL/kg 2100- 2520 total fluid mLs NUTRITION DIAGNOSIS: *Increased kcal and pro needs r/t sepsis and wound healing AEB pt adm w/ open foot ulcer w/ h/o DM (pending wound eval), febrile on adm 101.8. CURRENT DIET:CCHO Medium PO DIET RECOMMENDATIONS: CCHO Med + DOUBLE PRO PORTIONS ADDITIONAL RECOMMENDATIONS: 1) CALIBRATED BEDSCALE WT, weekly wts 2) F/up w/ wound care eval, add KONSTANTIN BID. + Vit C 250mg qdaily 3) Monitor lytes, on lasix 4) Provide high protein snacks in b/w meals. . .
--- NOTE | 2019-07-15 15:11 | NUR ---
NURSE NOTES: Patient is resting in bed with eyes closed. No signs of distress noted. On going nitro drip and heparin drip. No bleeding noted from anywhere.
--- NOTE | 2019-07-15 15:15 | Consultation ---
DATE OF CONSULTATION: 07/15/2019 CARDIOLOGY CONSULTATION CONSULTING PHYSICIAN: Murray Francois M.D. REFERRING PHYSICIAN: Mj Lutz M.D. REASON FOR CONSULTATION: Non-ST elevation myocardial infarction. HISTORY OF PRESENT ILLNESS: The patient is a 58-year-old gentleman with history of HIV, prior respiratory failure and tracheostomy as well as dysphagia status post PEG placement that were both removed. The patient lives in his car and presented with several days of fever, general malaise, as well as chest pain. The patient however was ruled in for non-ST elevation myocardial infarction. The patient was started on nitroglycerin drip as well as heparin drip and started initially on BiPAP and transferred to intensive care unit. His EKG showed marked ST abnormalities for inferolateral ischemia. His troponin was initially 0.339 that increased to 21.7, then 20 and then 20. Subsequent troponin remained the same. At the time of my evaluation, the patient is in intensive care unit. Denies any chest pain or shortness of breath. REVIEW OF SYSTEMS: Review of systems was negative other than what was mentioned in the history of present illness. PAST MEDICAL HISTORY: As mentioned above. FAMILY HISTORY: Noncontributory. SOCIAL HISTORY: Currently lives in his car. Does not smoke or use any drugs. PHYSICAL EXAMINATION: VITAL SIGNS: Show blood pressure of 139/64, pulse 90, respirations 19, temperature is 100. HEAD AND NECK: Shows no JVD. LUNGS: Coarse rhonchi. CARDIOVASCULAR: Regular S1 and S2 with no gallop or murmur. ABDOMEN: Soft. EXTREMITIES: No pitting edema. LABORATORY AND DIAGNOSTIC DATA: Sodium 137, potassium 4.0, BUN of 27, creatinine 1.9, and glucose of 171. Troponin again 0.34, 21.8, 20.6, and 20.8. White count is 5, hemoglobin of 10, hematocrit of 30, and platelet count is 117. ASSESSMENT AND PLAN: 1. Non-ST elevation myocardial infarction with troponin of 20. The patient had prior non ST elevation myocardial infarction at the time of his respiratory failure three months ago. The patient however was admitted last month and underwent a nuclear stress test on June 07, 2019 at [facility] that showed no evidence of ischemia or scar. At this time, we will continue on aspirin and metoprolol 25 mg b.i.d. and heparin drip until troponin level comes down. The patient is also on nitroglycerin and add Lipitor to his medical regimen. Try to transfer the patient to [facility] for cardiac catheterization and coronary intervention. It is of note, the patient's echocardiogram today showed ejection fraction of 55%. 2. Hypertension on metoprolol 25 mg b.i.d., losartan 100 mg daily, and Lasix 40 mg IV b.i.d. The patient also on hydralazine 50 mg every 8 hours. 3. HIV on anti-retroviral therapy. 4. Major depressive disorder. 5. Chronic kidney disease, creatinine of 1.9. 6. Diabetes. Thank you very much for allowing me to participate in the care of this patient. Please do not hesitate to contact me for any questions regarding my evaluation. Murray Francois M.D. DR: Lizbet JOB#: [id number] CC:
--- NOTE | 2019-07-15 17:21 | NUR ---
NURSE NOTES: lapper here to draw PTT and troponin. Patient resting in bed. No signs of distress noted. Blood sugar 204 mg/dl, 6 units given per sliding scale.
[2019-07-15] MEDS: Heparin 25,000u/D5W 500ml 500 ML IV SCH (18:25)
--- NOTE | 2019-07-15 18:29 | NUR ---
NURSE NOTES: PTT=64, notified pharmacy and per protocol rate change to 10units/kg/hr and heparin 3,500 units IV. PTT redraw scheduled for 2329.
[2019-07-15] MEDS ORDERED: Heparin 5000 units/ml inj IV SCH (18:30)
--- NOTE | 2019-07-15 19:30 | NUR ---
NURSE NOTES: Received pt from Suze Case RN. Pt is resting alert and oriented X4; able to make needs known. On 2L oxygen via N/C satting 100%, BP 141/70 HR 99. No s/s of acute and cardiac distress. Denies any pain or discomfort. Denies chest pain. Patient is on heparin drip 10u/hr and nitroglycerin drip running at 25mcg/min. Next time PTT at 0030. LAC 18G and LAC 18G patent and asymptomatic. Pt is continent and uses urinal. Instructed patient to use call light for assistance. bed alarm on. bed locked and in low position. No s/s of hypo/hyperglycemia. Bed locked, alarmed and in lowest position. Per Patient he doesn't have seizure his medication Lamictal is for depression. Contact isolation maintained and observed.Will continue plan of care.
--- NOTE | 2019-07-15 19:35 | NUR ---
HAND-OFF: Report given to TESSA Patino.
[2019-07-15] MEDS ORDERED: Isentress 400mg tab ORAL SCH (21:00)
[2019-07-15] MEDS ORDERED: Atorvastatin 80mg tab ORAL SCH (21:00)
[2019-07-15] MEDS: Nitroglycerin 50mg/250ml btl 250 ML IV SCH (21:22)
--- NOTE | 2019-07-15 21:30 | NUR ---
NURSE NOTES: patient in bed sleeping comfortably, easily arousable to verbal and tactile stimuli.No s/s of acute and cardiac distress. Denies any pain or discomfort. Denies chest pain. Patient is on heparin drip 10u/hr and nitroglycerin drip running at 25mcg/min.uses urinal. Instructed patient to use call light for assistance. bed alarm on. bed locked and in low position. No s/s of hypo/hyperglycemia. Bed locked, alarmed and in lowest position. Contact isolation maintained and observed.Will continue plan of care.
--- NOTE | 2019-07-15 22:56 | NUR ---
NURSE NOTES: Temp 100.6 oral cooling measure provided not effective, Tylenol 650mg tab po given will rechecked Temp. Titrated nitroglycerin drip to 30mcg/min BP 167/71 HR 101. continent and uses urinal. Instructed patient to use call light for assistance. bed alarm on. bed locked and in low position. No s/s of hypo/hyperglycemia. Bed locked, alarmed and in lowest position.Will continue plan of care.
[2019-07-16] VITALS (43 sets, daily range): BP systolic 98–140; BP diastolic 50–68
--- NOTE | 2019-07-16 00:30 | NUR ---
NURSE NOTES: Cfo Controller here to draw PTT and troponin level.
--- NOTE | 2019-07-16 01:00 | NUR ---
NURSE NOTES: Angelica called pipeline pharmacist PTT 91 will continue the same dose and will repeat time PTT.
--- NOTE | 2019-07-16 01:22 | NUR ---
NURSE NOTES: [facility] called and updated regarding the patient condition. per Emma she will endorse in am.
--- NOTE | 2019-07-16 03:22 | NUR ---
NURSE NOTES: Patient in bed sleeping comfortably. no s/s of cardiac and Resp distress. all needs attended promptly. uses urinal. frequent visual checks continued.
--- NOTE | 2019-07-16 05:00 | NUR ---
NURSE NOTES: Patient refused am care. explained the importance v/s risk and benefits per patient he is tired and doesn't feel like moving. will offer again. patient is alert nad oriented x4 able to make his own decisions. charge nurse aware.
[2019-07-16] MEDS: HydrALAZINE 50mg tab ORAL SCH ×2 (06:00→13:40)
--- NOTE | 2019-07-16 06:00 | NUR ---
NURSE NOTES: Seen and examined by Dr. Kimble.
--- NOTE | 2019-07-16 06:23 | Consultation ---
History of Present Illness General Chief Complaint: Upper Respiratory Illness Present Illness Allergies: Coded Allergies: No Known Allergies (Unverified , 02/05/13) Medication History Scheduled Acetaminophen* (Acetaminophen Extra Strength*), 500 MG ORAL Q6H, (Reported) Artificial Tears (Refresh Lacri-Lube Ointment), 1 APPLIC BOTH EYES AC+HS Aspirin Ec* (Aspirin Ec*), 81 MG ORAL DAILY Biotin (Biotin), 5,000 MCG PO DAILY, (Reported) Duloxetine Hcl* (Cymbalta*), 90 MG ORAL DAILY, (Reported) Etravirine* (Intelence*), 400 MG ORAL DAILY, (Reported) Ezetimibe (Zetia*), 10 MG ORAL BEDTIME, (Reported) Ferrous Sulfate* (Ferrous Sulfate*), 325 MG ORAL THREE TIMES A DAY, (Reported) Folic Acid (Folic Acid), 1 MG PO BID, (Reported) Hydralazine HCl (Hydralazine HCl), 50 MG NG Q8HR Insulin Aspart (Novolog Flexpen), 0 UNITS SUBQ EVERY 6 HOURS Insulin Detemir (Levemir Flexpen), 14 UNITS SUBQ Q12HR Ipratropium/Albuterol Sulfate (DuoNeb 0.5-3(2.5)mg/3ml), 3 ML HHN Q6HRT Isosorbide Mononitrate (Isosorbide Mononitrate Er), 30 MG PO DAILY, (Reported) Lamotrigine (Lamotrigine), 200 MG PO QHS, (Reported) Lansoprazole* (Lansoprazole*), 15 MG ORAL BID, (Reported) Losartan Potassium* (Losartan Potassium*), 100 MG ORAL DAILY, (Reported) Metoprolol Tartrate (Metoprolol Tartrate), 25 MG ORAL Q12HR Nateglinide (Starlix), 120 MG ORAL THREE TIMES A DAY, (Reported) Raltegravir (Isentress), 400 MG ORAL EVERY 12 HOURS, (Reported) Sitagliptin* (Januvia*), 100 MG ORAL DAILY, (Reported) Sitagliptin* (Januvia*), 100 MG ORAL DAILY, (Reported) Vitamin B Complex (Vitamin B Complex), 1 EACH PO DAILY, (Reported) Vitamin D (Vitamin D3), 400 UNITS ORAL DAILY, (Reported) Scheduled PRN Butalb/Acetaminophen/Caffeine (Bzfwrw-Ifilwwau-Dpof 50-325-40), 1 EACH PO BID PRN for For Pain, (Reported) Cetirizine Hcl* (Zyrtec*), 10 MG ORAL DAILY PRN for Itching, (Reported) Docusate Sodium (Docusate Sodium), 100 MG ORAL TWICE A DAY PRN for Constipation, (Reported) Miscellaneous Medications Guaifenesin (Mucinex), 100 MG PO, (Reported) Discontinued Medications [Patient's Own Med], 1 EA ORAL DAILY Discontinued Reason: Pt stopped taking med [Patient's Own Med], 1 EA ORAL BID Discontinued Reason: Pt stopped taking med [Patient's Own Med], 1 EA ORAL BID Discontinued Reason: Pt stopped taking med Patient History Healthcare decision maker Resuscitation status Advanced Directive on File Physical Exam Last 24 Hour Vital Signs Date Time Temp Pulse Resp B/P (MAP) Pulse Ox O2 Delivery O2 Flow Rate FiO2 07/16/19 05:30 95 17 128/61 100 Nasal Cannula 2.0 07/16/19 05:15 95 17 125/60 100 Nasal Cannula 2.0 07/16/19 05:00 95 17 116/59 100 Nasal Cannula 2.0 07/16/19 04:45 95 22 117/55 100 Nasal Cannula 2.0 07/16/19 04:30 95 16 122/53 100 Nasal Cannula 2.0 07/16/19 04:15 91 17 120/59 100 Nasal Cannula 2.0 07/16/19 04:00 99 07/16/19 04:00 Nasal Cannula 2.0 07/16/19 04:00 99.0 91 17 114/55 100 Nasal Cannula 2.0 07/16/19 03:45 91 16 118/56 100 Nasal Cannula 2.0 07/16/19 03:30 95 15 123/63 100 Nasal Cannula 2.0 07/16/19 03:15 95 17 112/55 100 Nasal Cannula 2.0 07/16/19 03:00 95 17 131/57 100 Nasal Cannula 2.0 07/16/19 02:45 95 20 129/59 100 Nasal Cannula 2.0 07/16/19 02:30 95 17 131/58 100 Nasal Cannula 2.0 07/16/19 02:15 99 21 123/58 100 Nasal Cannula 2.0 07/16/19 02:00 91 20 132/63 100 Nasal Cannula 2.0 07/16/19 01:45 91 18 124/56 100 Nasal Cannula 2.0 07/16/19 01:30 91 17 98/53 100 Nasal Cannula 2.0 07/16/19 01:15 93 19 107/53 100 Nasal Cannula 2.0 07/16/19 01:00 91 18 106/55 100 Nasal Cannula 2.0 07/16/19 00:45 94 19 114/51 100 Nasal Cannula 2.0 07/16/19 00:30 94 20 110/54 100 Nasal Cannula 2.0 07/16/19 00:15 99 21 106/56 100 Nasal Cannula 2.0 07/16/19 00:00 99.0 99 23 128/60 99 Nasal Cannula 2.0 07/16/19 00:00 99 07/16/19 00:00 Nasal Cannula 2.0 07/15/19 23:45 99 20 120/60 100 Nasal Cannula 2.0 07/15/19 23:30 99.5 99 19 121/62 100 Nasal Cannula 2.0 07/15/19 23:26 99.5 07/15/19 23:15 99 20 128/61 100 Nasal Cannula 2.0 07/15/19 23:00 99 19 136/66 99 Nasal Cannula 2.0 07/15/19 22:56 100.6 07/15/19 22:45 101 21 167/72 100 Nasal Cannula 2.0 07/15/19 22:30 101 19 136/66 100 Nasal Cannula 2.0 07/15/19 22:15 101 20 124/65 100 Nasal Cannula 2.0 07/15/19 22:00 101 19 135/66 100 Nasal Cannula 2.0 07/15/19 21:45 101 21 129/66 100 Nasal Cannula 2.0 07/15/19 21:30 108 145/83 07/15/19 21:30 27 130/73 98 Nasal Cannula 2.0 07/15/19 21:29 145/83 07/15/19 21:22 145/83 07/15/19 21:15 23 145/83 100 Nasal Cannula 2.0 07/15/19 21:00 18 136/67 100 Nasal Cannula 2.0 07/15/19 20:45 16 122/65 100 Nasal Cannula 2.0 07/15/19 20:30 102 15 138/64 100 Nasal Cannula 2.0 07/15/19 20:15 101 17 145/64 100 Nasal Cannula 2.0 07/15/19 20:00 Nasal Cannula 2.0 07/15/19 20:00 98.8 99 16 136/67 100 Nasal Cannula 2.0 07/15/19 19:45 98 17 155/69 100 Nasal Cannula 2.0 07/15/19 19:30 99 16 141/70 100 Nasal Cannula 2.0 07/15/19 19:30 100 Nasal Cannula 2.0 28 07/15/19 19:15 97 14 167/69 100 Nasal Cannula 2.0 07/15/19 19:00 96 18 163/67 100 Nasal Cannula 2.0 07/15/19 18:30 98.7 93 14 135/63 100 Nasal Cannula 2.0 07/15/19 18:00 93 18 132/65 100 Nasal Cannula 2.0 07/15/19 17:30 88 18 171/73 100 Nasal Cannula 2.0 07/15/19 17:00 90 13 162/77 100 Nasal Cannula 2.0 07/15/19 16:30 87 13 142/61 100 Nasal Cannula 2.0 07/15/19 16:00 99.6 90 15 114/63 100 Nasal Cannula 2.0 07/15/19 16:00 Nasal Cannula 2.0 07/15/19 16:00 91 07/15/19 15:30 97 16 131/66 100 Nasal Cannula 2.0 07/15/19 15:00 85 16 129/72 100 Nasal Cannula 2.0 07/15/19 14:30 85 16 138/72 100 Nasal Cannula 2.0 07/15/19 14:00 87 16 112/60 100 Nasal Cannula 2.0 07/15/19 13:30 88 16 130/59 100 Nasal Cannula 2.0 07/15/19 13:16 121/64 07/15/19 13:00 16 121/64 100 Nasal Cannula 2.0 07/15/19 12:30 14 147/74 100 Nasal Cannula 2.0 07/15/19 12:00 86 07/15/19 12:00 16 134/71 100 Nasal Cannula 2.0 07/15/19 12:00 Nasal Cannula 2.0 07/15/19 11:30 15 114/64 100 Nasal Cannula 2.0 07/15/19 11:15 99.9 90 19 139/64 100 Nasal Cannula 2.0 07/15/19 11:00 90 16 135/66 100 Nasal Cannula 2.0 07/15/19 10:30 100.1 90 29 136/64 99 Nasal Cannula 2.0 07/15/19 10:00 93 29 132/64 99 Nasal Cannula 2.0 07/15/19 09:30 97 29 132/65 99 Nasal Cannula 2.0 07/15/19 09:00 97 29 120/55 99 Nasal Cannula 2.0 07/15/19 08:30 102 32 136/70 98 Nasal Cannula 2.0 07/15/19 08:15 103 18 142/72 100 Nasal Cannula 2.0 07/15/19 08:04 103 144/76 07/15/19 08:04 144/76 07/15/19 08:00 Nasal Cannula 2.0 07/15/19 08:00 108 24 142/69 98 Nasal Cannula 2.0 07/15/19 08:00 94 07/15/19 07:45 103 18 125/65 99 Nasal Cannula 2.0 07/15/19 07:30 105 18 136/66 99 Nasal Cannula 2.0 07/15/19 07:15 103 19 126/64 99 Nasal Cannula 2.0 07/15/19 07:00 100.3 103 19 145/65 100 Nasal Cannula 2.0 07/15/19 06:30 103 19 144/76 99 Nasal Cannula 2.0 Intake and Output 07/15/19 07/16/19 19:00 07:00 Intake Total 678.676 ml 803.469 ml Output Total 1750 ml 1390 ml Balance -1071.324 ml -586.531 ml Intake Oral 140 ml 400 ml IV Total 538.676 ml 403.469 ml Output Urine Total 1750 ml 1390 ml Laboratory Tests Test 07/15/19 09:45 07/15/19 17:20 07/16/19 00:25 Activated Partial Thromboplast Time 108 SEC (23-33) H 64 SEC (23-33) H 91 SEC (23-33) H Troponin I 20.864 ng/mL (0.000-0.056) 14.870 ng/mL (0.000-0.056) 9.695 ng/mL (0.000-0.056) Height (Feet): 6 Weight (Pounds): 207 Medications Current Medications Medications (Trade) Dose Ordered Sig/Marquis Route PRN Reason Start Time Stop Time Status Last Admin Dose Admin Acetaminophen (Tylenol) 650 mg Q6H PRN ORAL Mild Pain/Temp > 100.5 07/14/19 21:30 08/13/19 21:29 07/15/19 22:56 Aspirin (ASA) 81 mg DAILY ORAL 07/15/19 09:00 08/14/19 08:59 07/15/19 08:04 Atorvastatin Calcium (Lipitor) 80 mg BEDTIME ORAL 07/15/19 21:00 08/14/19 20:59 07/15/19 21:29 Clopidogrel Bisulfate (Plavix) 75 mg DAILY ORAL 07/16/19 09:00 08/15/19 08:59 Dextrose (Dextrose 50%) 25 ml Q30M PRN IV Hypoglycemia 07/14/19 21:30 08/13/19 21:29 Dextrose (Dextrose 50%) 50 ml Q30M PRN IV Hypoglycemia 07/14/19 21:30 08/13/19 21:29 Furosemide (Lasix) 40 mg EVERY 12 HOURS IV 07/15/19 09:00 08/14/19 08:59 07/15/19 21:30 Heparin Sodium/ Dextrose 500 ml @ 18.779 mls/ hr ADJUST PER PROTOCOL IV 07/15/19 18:30 08/14/19 18:29 07/15/19 18:25 Hydralazine HCl (Apresoline) 50 mg Q8HR ORAL 07/14/19 22:00 08/13/19 21:59 07/15/19 21:29 Insulin Aspart (NovoLOG) BEFORE MEALS AND HS SUBQ 07/15/19 06:30 08/14/19 06:29 07/15/19 21:25 Insulin Detemir (Levemir) 14 units Q12HR SUBQ 07/15/19 09:00 08/14/19 08:59 07/15/19 21:24 Losartan Potassium (Cozaar) 100 mg DAILY ORAL 07/15/19 09:00 08/14/19 08:59 07/15/19 08:04 Metoprolol Tartrate (Lopressor) 25 mg Q12HR ORAL 07/15/19 09:00 08/14/19 08:59 07/15/19 21:30 Nitroglycerin 250 ml @ 0 mls/hr Q24H IV 07/14/19 21:30 08/13/19 21:29 07/15/19 21:22 Ondansetron HCl (Zofran) 4 mg Q6H PRN IVP Nausea & Vomiting 07/14/19 21:30 08/13/19 21:29 Piperacillin Sod/ Tazobactam Sod 3.375 gm/Sodium Chloride 110 ml @ 27.5 mls/hr EVERY 8 HOURS IVPB 07/14/19 22:00 07/19/19 21:59 07/15/19 21:23 Raltegravir (Isentress) 400 mg EVERY 12 HOURS ORAL 07/15/19 21:00 08/14/19 20:59 UNV Vancomycin HCl (Vanco rx to dose) 1 ea DAILY PRN MISC Per rx protocol 07/14/19 21:30 08/13/19 21:29 Assessment/Plan Assessment/Plan: Hematology Consultation NATTY MD: Bolivar Burns RFC: Cytopenia eval DOS: 07/16/19 ID [id number] old male, well known to me from prior admission in 02/2019 Presents with 2 problems. The primary complaint is fever, headache muscle aches. He took Tylenol before coming in. The patient is diabetic. He says his blood sugar was 142 this morning. He is taking a weekly dosing of insulin along with sliding scale control during the day. He has 2 sores on his feet but cannot feel them well. He is living with his car. He measured his temperature 103 last night. He had shaking chills. He is also had a nonproductive cough. The second problem is that he has chest pain. He says he needs to have a surgical procedure formed on his chest but missed an appointment recently. He has been taking nitroglycerin throughout the night. He identifies his pain is his angina. He says he does not have pain at the moment. Had trach in past for "bilateral pneumonia". Seen by cards and w/u reviewed, noted to have cytopenias , thus heme consulted. Allergies: No Known Allergies (Unverified , 02/05/13) Past Medical History: see triage record Past Surgical History: other - prior trach Social History: Denies: smoking, alcohol use, drug use Social History Narrative Living in his car Reviewed Nursing Documentation: PMH: Agreed; PSxH: Agreed Nursing Documentation-PMH Past Medical History: No History, Except For Hx Cardiac Problems: Yes - blockage in the artery Hx Hypertension: Yes Hx Diabetes: Yes Hx Cancer: No Hx Gastrointestinal Problems: No Hx Neurological Problems: Yes - STROKE Hx Cerebrovascular Accident: Yes Hx Vertigo: Yes Hx Dizziness: Yes Hx Syncope: Yes Hx Headaches: Yes - Tension headaches Review of Systems All Other Systems: negative except mentioned in HPI Physical Exam General Appearance: Chronically Ill Eyes: bilateral eye normal inspection, bilateral eye PERRL Neck: other - Old tracheostomy site Respiratory: no respiratory distress, decreased breath sounds, crackles 2l nc Cardiovascular: regular rate, rhythm Abd: soft, nt, nd Ext: no cce Labs: noted Imaging: reviewed Assessment and Recs: ASSESSMENT AND RECS: # Pancytopenia with all three cell lines have, decreasing counts could also be due to underlying hiv meds, sepsis as well as HIV, he has had this since 02/2019 --> Anemia workup has been reviewed. Ferritin 182 --> Hep panel negative and HIV confirmed positive --> No evidence of hemolysis is noted, peripheral smear has been reviewed. --> Hgb goal >7. Transfuse prn. --> Epogen or iron at this time is not particularly indicated --> Medications have been reviewed --> Stool OB negative --> Hgb trend: 10 --> Plt trend: 117 --> Transfuse if Plt < 20k and fever, or if Plt < 10k without fever --> WILLIAM screen negative --> is okay for heparin gtt # NSTEMI -- on adm trop 20 --> on heparin gtt --> plan to transfer to [facility] # Hypoxemic respiratory failure. s/p trach in past, old site --> Due to pneumonia, on abx --> pulm recs reviewed # HIV. --> Continue HARRT --> VL is undetectable per patient report. # HTN # Major depressive disorder. # Chronic kidney disease, creatinine of 1.9. # Diabetes. --> accuchecks, qac and qhs # Dvt ppx heparin gtt CANDELARIO Rn and appreciate consultation. Chan Hernandez MD Jul 16, 2019 06:23
[2019-07-16] MEDS: Piperacillin/Tazobactam 3.375 GM in NS 110 ML IVPB SCH ×2 (06:27→13:40)
[2019-07-16] MEDS: NovoLOG Insulin Flexpen SUBQ SCH ×3 (06:28→16:52)
[2019-07-16] MEDS: Heparin 25,000u/D5W 500ml 500 ML IV SCH (06:34)
--- NOTE | 2019-07-16 07:11 | NUR ---
HAND-OFF: Report given to Suze Case RN. Addendum: 07/16/19 at 0739 by SAJI MENDOZA RN dressing on bilateral foot pressure sore dry and intact. float with pillows.
--- NOTE | 2019-07-16 07:11 | NUR ---
NURSE NOTES: Pt received from TESSA Patino in stable condition without cardiopulmonary distress. Pt denies chest pain at this time. Pt is AAOx4 on 2L O2 via NC. Pt noted SR on admin assistant. Skin alterations noted. Pt has a LAC 18g IV running heparin at 18.770 cc/hr (10 units/kg/hr) and Nitroglycerin at 30 mcg/min. RAC 18g noted running Zosyn at 27cc/hr. Urinal noted at bedside. Bed in lowest position, alarm on, side rails up x 2, call light within reach. Will continue to monitor.
[2019-07-16 08:11] LABS: ANION GAP 9 mmol/L (5-15); BLOOD UREA NITROGEN 28 mg/dL (7-18); CALCIUM 7.3 MG/DL (8.5-10.1); CARBON DIOXIDE 26 MMOL/L (21-32); CHLORIDE 103 MMOL/L (98-107); POTASSIUM 3.7 MMOL/L (3.5-5.1); SODIUM 138 MMOL/L (136-145)
--- NOTE | 2019-07-16 08:40 | Cardiac Electrophysiology PN ---
Assessment/Plan Assessment/Plan 1. Non-ST elevation myocardial infarction with peak troponin of 20. Troponin level down to 6 today and now has no chest pain. Had prior non ST elevation myocardial infarction at the time of his respiratory failure three months ago. Nuclear stress test on June 07, 2019 at [facility] showed no evidence of ischemia or scar. Awaiting Cardiac cath report from Last week at [facility]. Says was told needs CABG. Continue on aspirin, Plavix, Lipitor and metoprolol 25 mg b.i.d. . DC heparin drip and change Nitro drip to Isordil 20 bid . Awaiting transfer to [facility] for cardiac catheterization and coronary intervention. Echocardiogram showed ejection fraction of 55%. 2. Hypertension, increase metoprolol to 50 mg b.i.d. and change iv Nitro to Isordil 20 bid Continue losartan 100 mg daily, Hydralazine 50 mg every 8 hours. Change iv Lasix to 40 po daily. Add prn Clonidine 3. HIV on anti-retroviral therapy. 4. Major depressive disorder. 5. Chronic kidney disease, creatinine of 2.0. 6. Diabetes. 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 No bed yet Awaiting Cardiac Cath report at [facility] last week and was told needs CABG Objective Last 24 Hour Vital Signs Date Time Temp Pulse Resp B/P (MAP) Pulse Ox O2 Delivery O2 Flow Rate FiO2 07/16/19 07:30 94 17 127/68 100 Nasal Cannula 2.0 07/16/19 07:15 94 17 126/58 100 Nasal Cannula 2.0 07/16/19 07:00 91 17 126/60 100 Nasal Cannula 2.0 07/16/19 06:45 95 16 116/60 100 Nasal Cannula 2.0 07/16/19 06:30 94 16 123/59 100 Nasal Cannula 2.0 07/16/19 06:15 91 16 110/56 100 Nasal Cannula 2.0 07/16/19 06:13 91 16 109/50 100 Nasal Cannula 2.0 07/16/19 06:00 107/61 07/16/19 06:00 99.5 91 18 107/59 100 Nasal Cannula 2.0 07/16/19 05:30 95 17 128/61 100 Nasal Cannula 2.0 07/16/19 05:15 95 17 125/60 100 Nasal Cannula 2.0 07/16/19 05:00 95 17 116/59 100 Nasal Cannula 2.0 07/16/19 04:45 95 22 117/55 100 Nasal Cannula 2.0 07/16/19 04:30 95 16 122/53 100 Nasal Cannula 2.0 07/16/19 04:15 91 17 120/59 100 Nasal Cannula 2.0 07/16/19 04:00 99 07/16/19 04:00 Nasal Cannula 2.0 07/16/19 04:00 99.0 91 17 114/55 100 Nasal Cannula 2.0 07/16/19 03:45 91 16 118/56 100 Nasal Cannula 2.0 07/16/19 03:30 95 15 123/63 100 Nasal Cannula 2.0 07/16/19 03:15 95 17 112/55 100 Nasal Cannula 2.0 07/16/19 03:00 95 17 131/57 100 Nasal Cannula 2.0 07/16/19 02:45 95 20 129/59 100 Nasal Cannula 2.0 07/16/19 02:30 95 17 131/58 100 Nasal Cannula 2.0 07/16/19 02:15 99 21 123/58 100 Nasal Cannula 2.0 07/16/19 02:00 91 20 132/63 100 Nasal Cannula 2.0 07/16/19 01:45 91 18 124/56 100 Nasal Cannula 2.0 07/16/19 01:30 91 17 98/53 100 Nasal Cannula 2.0 07/16/19 01:15 93 19 107/53 100 Nasal Cannula 2.0 07/16/19 01:00 91 18 106/55 100 Nasal Cannula 2.0 07/16/19 00:45 94 19 114/51 100 Nasal Cannula 2.0 07/16/19 00:30 94 20 110/54 100 Nasal Cannula 2.0 07/16/19 00:15 99 21 106/56 100 Nasal Cannula 2.0 07/16/19 00:00 99.0 99 23 128/60 99 Nasal Cannula 2.0 07/16/19 00:00 99 07/16/19 00:00 Nasal Cannula 2.0 07/15/19 23:45 99 20 120/60 100 Nasal Cannula 2.0 07/15/19 23:30 99.5 99 19 121/62 100 Nasal Cannula 2.0 07/15/19 23:26 99.5 07/15/19 23:15 99 20 128/61 100 Nasal Cannula 2.0 07/15/19 23:00 99 19 136/66 99 Nasal Cannula 2.0 07/15/19 22:56 100.6 07/15/19 22:45 101 21 167/72 100 Nasal Cannula 2.0 07/15/19 22:30 101 19 136/66 100 Nasal Cannula 2.0 07/15/19 22:15 101 20 124/65 100 Nasal Cannula 2.0 07/15/19 22:00 101 19 135/66 100 Nasal Cannula 2.0 07/15/19 21:45 101 21 129/66 100 Nasal Cannula 2.0 07/15/19 21:30 108 145/83 07/15/19 21:30 27 130/73 98 Nasal Cannula 2.0 07/15/19 21:29 145/83 07/15/19 21:22 145/83 07/15/19 21:15 23 145/83 100 Nasal Cannula 2.0 07/15/19 21:00 18 136/67 100 Nasal Cannula 2.0 07/15/19 20:45 16 122/65 100 Nasal Cannula 2.0 07/15/19 20:30 102 15 138/64 100 Nasal Cannula 2.0 07/15/19 20:15 101 17 145/64 100 Nasal Cannula 2.0 07/15/19 20:00 Nasal Cannula 2.0 07/15/19 20:00 98.8 99 16 136/67 100 Nasal Cannula 2.0 07/15/19 19:45 98 17 155/69 100 Nasal Cannula 2.0 07/15/19 19:30 99 16 141/70 100 Nasal Cannula 2.0 07/15/19 19:30 100 Nasal Cannula 2.0 28 07/15/19 19:15 97 14 167/69 100 Nasal Cannula 2.0 07/15/19 19:00 96 18 163/67 100 Nasal Cannula 2.0 07/15/19 18:30 98.7 93 14 135/63 100 Nasal Cannula 2.0 07/15/19 18:00 93 18 132/65 100 Nasal Cannula 2.0 07/15/19 17:30 88 18 171/73 100 Nasal Cannula 2.0 07/15/19 17:00 90 13 162/77 100 Nasal Cannula 2.0 07/15/19 16:30 87 13 142/61 100 Nasal Cannula 2.0 07/15/19 16:00 99.6 90 15 114/63 100 Nasal Cannula 2.0 07/15/19 16:00 Nasal Cannula 2.0 07/15/19 16:00 91 07/15/19 15:30 97 16 131/66 100 Nasal Cannula 2.0 07/15/19 15:00 85 16 129/72 100 Nasal Cannula 2.0 07/15/19 14:30 85 16 138/72 100 Nasal Cannula 2.0 07/15/19 14:00 87 16 112/60 100 Nasal Cannula 2.0 07/15/19 13:30 88 16 130/59 100 Nasal Cannula 2.0 07/15/19 13:16 121/64 07/15/19 13:00 16 121/64 100 Nasal Cannula 2.0 07/15/19 12:30 14 147/74 100 Nasal Cannula 2.0 07/15/19 12:00 86 07/15/19 12:00 16 134/71 100 Nasal Cannula 2.0 07/15/19 12:00 Nasal Cannula 2.0 07/15/19 11:30 15 114/64 100 Nasal Cannula 2.0 07/15/19 11:15 99.9 90 19 139/64 100 Nasal Cannula 2.0 07/15/19 11:00 90 16 135/66 100 Nasal Cannula 2.0 07/15/19 10:30 100.1 90 29 136/64 99 Nasal Cannula 2.0 07/15/19 10:00 93 29 132/64 99 Nasal Cannula 2.0 07/15/19 09:30 97 29 132/65 99 Nasal Cannula 2.0 07/15/19 09:00 97 29 120/55 99 Nasal Cannula 2.0 07/15/19 08:30 102 32 136/70 98 Nasal Cannula 2.0 Intake and Output 07/15/19 07/16/19 18:59 06:59 Intake Total 835.933 ml 832.189 ml Output Total 2200 ml 1390 ml Balance -1364.067 ml -557.811 ml Intake Oral 260 ml 400 ml IV Total 575.933 ml 432.189 ml Output Urine Total 2200 ml 1390 ml Laboratory Tests Test 07/15/19 09:45 07/15/19 17:20 07/16/19 00:25 07/16/19 06:45 Activated Partial Thromboplast Time 108 SEC (23-33) H 64 SEC (23-33) H 91 SEC (23-33) H Troponin I 20.864 ng/mL (0.000-0.056) 14.870 ng/mL (0.000-0.056) 9.695 ng/mL (0.000-0.056) 6.881 ng/mL (0.000-0.056) Sodium Level 138 MMOL/L (136-145) Potassium Level 3.7 MMOL/L (3.5-5.1) Chloride Level 103 MMOL/L (98-107) Carbon Dioxide Level 26 MMOL/L (21-32) Anion Gap 9 mmol/L (5-15) Blood Urea Nitrogen 28 mg/dL (7-18) H Creatinine 2.0 MG/DL (0.55-1.30) H Estimat Glomerular Filtration Rate 34.4 mL/min (>60) Glucose Level 173 MG/DL (74-106) H Calcium Level 7.3 MG/DL (8.5-10.1) L Magnesium Level 2.3 MG/DL (1.8-2.4) Microbiology Date/Time Source Procedure Growth Status 07/14/19 17:18 Blood Blood Culture - Preliminary NO GROWTH AFTER 24 HOURS Resulted 07/14/19 17:05 Blood Blood Culture - Preliminary NO GROWTH AFTER 24 HOURS Resulted 07/14/19 19:50 Nasal Nares - Final Complete 07/14/19 19:50 Nasal Nares - Final Complete Objective HEAD AND NECK: Shows no JVD. LUNGS: Coarse rhonchi. CARDIOVASCULAR: Regular S1 and S2 with no gallop or murmur. ABDOMEN: Soft. EXTREMITIES: No pitting edema. Murray Francois MD Jul 16, 2019 08:40
[2019-07-16] MEDS ORDERED: cloNIDine 0.2mg Tab ORAL PRN (08:45)
--- NOTE | 2019-07-16 08:47 | NUR ---
NURSE NOTES: [facility] Received orders to d/c lasix IV and change to PO, Isodil 20mg BID, increase Metroprolol 50mg PO BID, Clonidine 0.2mg PO PRN for SBP >170. Addendum: 07/16/19 at 0850 by DORA KENT RN Received these orders from Dr. Francois. Also received orders to dc heparin drip and nitro drip. Read back given and verified.
[2019-07-16] MEDS ORDERED: Metoprolol Tartrate 50mg tab ORAL SCH (09:00)
[2019-07-16] MEDS ORDERED: Furosemide 40mg tab ORAL SCH (09:00)
[2019-07-16] MEDS: Losartan 50mg tab ORAL SCH (09:26)
[2019-07-16] MEDS: Aspirin Baby 81mg ORAL SCH (09:27)
--- NOTE | 2019-07-16 09:30 | General Progress Note ---
Assessment/Plan Problem List: (1) NSTEMI (non-ST elevated myocardial infarction) ICD Codes: I21.4 - Non-ST elevation (NSTEMI) myocardial infarction SNOMED: 02402748 (2) Acute coronary syndrome ICD Codes: I24.9 - Acute ischemic heart disease, unspecified SNOMED: 611369327 (3) CAD, multiple vessel ICD Codes: I25.10 - Atherosclerotic heart disease of [place] coronary artery without angina pectoris SNOMED: 498725591 (4) Hypoxia ICD Codes: R09.02 - Hypoxemia SNOMED: 389476612, 563476820, 991896829 (5) ISH (acute kidney injury) ICD Codes: N17.9 - Acute kidney failure, unspecified SNOMED: 20640379 (6) CKD (chronic kidney disease) ICD Codes: N18.9 - Chronic kidney disease, unspecified SNOMED: 931788154 (7) MDD (major depressive disorder), recurrent episode, moderate ICD Codes: F33.1 - Major depressive disorder, recurrent, moderate SNOMED: 54253146, 659121797 (8) HIV (human immunodeficiency virus infection) ICD Codes: B20 - Human immunodeficiency virus [HIV] disease SNOMED: 55313549 (9) Diabetes ICD Codes: E11.9 - Type 2 diabetes mellitus without complications SNOMED: 49680211 (10) History of acute respiratory failure ICD Codes: Z87.09 - Personal history of other diseases of the respiratory system SNOMED: 202102067 (11) SIRS (systemic inflammatory response syndrome) ICD Codes: R65.10 - Systemic inflammatory response syndrome (SIRS) of non- infectious origin without acute organ dysfunction SNOMED: 930231414 (12) Hypertension ICD Codes: I10 - Essential (primary) hypertension SNOMED: 87983003 Status: stable Assessment/Plan: 58-year-old male with past medical history of CAD, hypertension, dyslipidemia, HIV compliant on heart with a recent angiogram at [facility] 1 week prior to admission showing three-vessel disease recommended for CABG #NSTEMI with peak troponin of 20, now trending down to 4, chest pain free #CAD #HTN Continue on aspirin, Plavix, Lipitor and metoprolol DC heparin drip and change Nitro drip to Isordil 20 bid . increase metoprolol to 50 mg b.i.d. Continue losartan 100 mg daily, Hydralazine 50 mg every 8hours. Change iv Lasix to 40 po daily. Add prn Clonidine Awaiting transfer to [facility] for cardiac catheterization and coronary intervention. Echocardiogram showed ejection fraction 55% pulmonary and cardiology consults appreciated #Hypoxic respiratory failure secondary to acute on chronic diastolic heart failure -Patient weaned from BiPAP to 2 L nasal cannula -Change diuresis 40 mg IV Lasix twice daily to po 40 mg daily -Pulmonary consult as above -Nebs as needed # SIRS, ? myocarditis, ? Viral -Follow-up of blood cultures, urine cultures -repeat chest x-ray, no consolidation -UA negative -Continue antibiotics Zosyn vancomycin started (07/14- ), stop antibiotics if cultures negative #ISH on CKD -Continue diuresis -Continue to monitor BMP -Monitor I/o -Avoid nephrotoxic medication #HIV on Jj therapy -Continue home medication #MDD -continue Cymbalta #DM -insulin Diet: consistent carb vte and GI ppx Disposition: Transfer to [facility] for left heart cath I spent 40 minute son this encounter. >50% spent on counselling and care coordination. case d/w with consultants. additional 31 minutes spent on reviewing records, labs and previous hospitalizations. Subjective Date patient seen: Jul 16, 2019 ROS Limited/Unobtainable: No Constitutional: Denies: no symptoms, chills, diaphoresis, fever, malaise, weakness, other HEENT: Denies: no symptoms, eye pain, blurred vision, tearing, double vision, ear pain, ear discharge, nose pain, nose congestion, throat pain, throat swelling, mouth pain, mouth swelling, other Cardiovascular: Denies: no symptoms, chest pain, edema, irregular heart rate, lightheadedness, palpitations, syncope, other Respiratory: Denies: no symptoms, cough, orthopnea, shortness of breath, SOB with excertion, SOB at rest, sputum, stridor, wheezing, other Gastrointestinal/Abdominal: Denies: no symptoms, abdomen distended, abdominal pain, black stools, tarry stools, blood in stool, constipated, diarrhea, difficulty swallowing, nausea, poor appetite, poor fluid intake, rectal bleeding , vomiting, other Genitourinary: Denies: no symptoms, burning, discharge, frequency, flank pain, hematuria, incontinence, pain, urgency, other Neurologic/Psychiatric: Denies: no symptoms, anxiety, depressed, emotional problems, headache, numbness, paresthesia, pre-existing deficit, seizure, tingling, tremors, weakness, other Endocrine: Denies: no symptoms, excessive sweating, flushing, intolerance to cold, intolerance to heat, increased hunger, increased thirst, increased urine, unexplained weight gain, unexplained weight loss, other Hematologic/Lymphatic: Denies: no symptoms, anemia, easy bleeding, easy bruising, other Allergies: Coded Allergies: No Known Allergies (Unverified , 02/05/13) Subjective seen and examined in icu, off bipap, chest pain free. [facility] . records obtained from [facility]: Left heart cath: LMCA: normal, LAD abnormal: Lesion on proximal: 75% stenosis, diffuse, lesion on mid: 80% stenosis, diffuse. LCx: 1st ob nilay% stenosis, RCA: mid RCA 95% stenosis, Ramus: proximal 99% stenosis Objective Last 24 Hour Vital Signs Date Time Temp Pulse Resp B/P (MAP) Pulse Ox O2 Delivery O2 Flow Rate FiO2 07/16/19 09:27 110/58 07/16/19 09:26 99 110/58 07/16/19 09:26 110/58 07/16/19 07:30 94 17 127/68 100 Nasal Cannula 2.0 07/16/19 07:15 94 17 126/58 100 Nasal Cannula 2.0 07/16/19 07:00 91 17 126/60 100 Nasal Cannula 2.0 07/16/19 06:45 95 16 116/60 100 Nasal Cannula 2.0 07/16/19 06:30 94 16 123/59 100 Nasal Cannula 2.0 07/16/19 06:15 91 16 110/56 100 Nasal Cannula 2.0 07/16/19 06:13 91 16 109/50 100 Nasal Cannula 2.0 07/16/19 06:00 107/61 07/16/19 06:00 99.5 91 18 107/59 100 Nasal Cannula 2.0 07/16/19 05:30 95 17 128/61 100 Nasal Cannula 2.0 07/16/19 05:15 95 17 125/60 100 Nasal Cannula 2.0 07/16/19 05:00 95 17 116/59 100 Nasal Cannula 2.0 07/16/19 04:45 95 22 117/55 100 Nasal Cannula 2.0 07/16/19 04:30 95 16 122/53 100 Nasal Cannula 2.0 07/16/19 04:15 91 17 120/59 100 Nasal Cannula 2.0 07/16/19 04:00 99 07/16/19 04:00 Nasal Cannula 2.0 07/16/19 04:00 99.0 91 17 114/55 100 Nasal Cannula 2.0 07/16/19 03:45 91 16 118/56 100 Nasal Cannula 2.0 07/16/19 03:30 95 15 123/63 100 Nasal Cannula 2.0 07/16/19 03:15 95 17 112/55 100 Nasal Cannula 2.0 07/16/19 03:00 95 17 131/57 100 Nasal Cannula 2.0 07/16/19 02:45 95 20 129/59 100 Nasal Cannula 2.0 07/16/19 02:30 95 17 131/58 100 Nasal Cannula 2.0 07/16/19 02:15 99 21 123/58 100 Nasal Cannula 2.0 07/16/19 02:00 91 20 132/63 100 Nasal Cannula 2.0 07/16/19 01:45 91 18 124/56 100 Nasal Cannula 2.0 07/16/19 01:30 91 17 98/53 100 Nasal Cannula 2.0 07/16/19 01:15 93 19 107/53 100 Nasal Cannula 2.0 07/16/19 01:00 91 18 106/55 100 Nasal Cannula 2.0 07/16/19 00:45 94 19 114/51 100 Nasal Cannula 2.0 07/16/19 00:30 94 20 110/54 100 Nasal Cannula 2.0 07/16/19 00:15 99 21 106/56 100 Nasal Cannula 2.0 07/16/19 00:00 99.0 99 23 128/60 99 Nasal Cannula 2.0 07/16/19 00:00 99 07/16/19 00:00 Nasal Cannula 2.0 07/15/19 23:45 99 20 120/60 100 Nasal Cannula 2.0 07/15/19 23:30 99.5 99 19 121/62 100 Nasal Cannula 2.0 07/15/19 23:26 99.5 07/15/19 23:15 99 20 128/61 100 Nasal Cannula 2.0 07/15/19 23:00 99 19 136/66 99 Nasal Cannula 2.0 07/15/19 22:56 100.6 07/15/19 22:45 101 21 167/72 100 Nasal Cannula 2.0 07/15/19 22:30 101 19 136/66 100 Nasal Cannula 2.0 07/15/19 22:15 101 20 124/65 100 Nasal Cannula 2.0 07/15/19 22:00 101 19 135/66 100 Nasal Cannula 2.0 07/15/19 21:45 101 21 129/66 100 Nasal Cannula 2.0 07/15/19 21:30 108 145/83 07/15/19 21:30 27 130/73 98 Nasal Cannula 2.0 07/15/19 21:29 145/83 07/15/19 21:22 145/83 07/15/19 21:15 23 145/83 100 Nasal Cannula 2.0 07/15/19 21:00 18 136/67 100 Nasal Cannula 2.0 07/15/19 20:45 16 122/65 100 Nasal Cannula 2.0 07/15/19 20:30 102 15 138/64 100 Nasal Cannula 2.0 07/15/19 20:15 101 17 145/64 100 Nasal Cannula 2.0 07/15/19 20:00 Nasal Cannula 2.0 07/15/19 20:00 98.8 99 16 136/67 100 Nasal Cannula 2.0 07/15/19 19:45 98 17 155/69 100 Nasal Cannula 2.0 07/15/19 19:30 99 16 141/70 100 Nasal Cannula 2.0 07/15/19 19:30 100 Nasal Cannula 2.0 28 07/15/19 19:15 97 14 167/69 100 Nasal Cannula 2.0 07/15/19 19:00 96 18 163/67 100 Nasal Cannula 2.0 07/15/19 18:30 98.7 93 14 135/63 100 Nasal Cannula 2.0 07/15/19 18:00 93 18 132/65 100 Nasal Cannula 2.0 07/15/19 17:30 88 18 171/73 100 Nasal Cannula 2.0 07/15/19 17:00 90 13 162/77 100 Nasal Cannula 2.0 07/15/19 16:30 87 13 142/61 100 Nasal Cannula 2.0 07/15/19 16:00 99.6 90 15 114/63 100 Nasal Cannula 2.0 07/15/19 16:00 Nasal Cannula 2.0 07/15/19 16:00 91 07/15/19 15:30 97 16 131/66 100 Nasal Cannula 2.0 07/15/19 15:00 85 16 129/72 100 Nasal Cannula 2.0 07/15/19 14:30 85 16 138/72 100 Nasal Cannula 2.0 07/15/19 14:00 87 16 112/60 100 Nasal Cannula 2.0 07/15/19 13:30 88 16 130/59 100 Nasal Cannula 2.0 07/15/19 13:16 121/64 07/15/19 13:00 16 121/64 100 Nasal Cannula 2.0 07/15/19 12:30 14 147/74 100 Nasal Cannula 2.0 07/15/19 12:00 86 07/15/19 12:00 16 134/71 100 Nasal Cannula 2.0 07/15/19 12:00 Nasal Cannula 2.0 07/15/19 11:30 15 114/64 100 Nasal Cannula 2.0 07/15/19 11:15 99.9 90 19 139/64 100 Nasal Cannula 2.0 07/15/19 11:00 90 16 135/66 100 Nasal Cannula 2.0 07/15/19 10:30 100.1 90 29 136/64 99 Nasal Cannula 2.0 07/15/19 10:00 93 29 132/64 99 Nasal Cannula 2.0 Intake and Output 07/15/19 07/16/19 19:00 07:00 Intake Total 678.676 ml 830.919 ml Output Total 1750 ml 1390 ml Balance -1071.324 ml -559.081 ml Intake Oral 140 ml 400 ml IV Total 538.676 ml 430.919 ml Output Urine Total 1750 ml 1390 ml Laboratory Tests 07/15/19 09:45: Activated Partial Thromboplast Time 108H, Troponin I 20.864H 07/15/19 17:20: Activated Partial Thromboplast Time 64H, Troponin I 14.870H 07/16/19 00:25: Activated Partial Thromboplast Time 91H, Troponin I 9.695H 07/16/19 06:45: Troponin I 6.881H, Sodium Level 138, Potassium Level 3.7, Chloride Level 103, Carbon Dioxide Level 26, Anion Gap 9, Blood Urea Nitrogen 28H, Creatinine 2.0H, Estimat Glomerular Filtration Rate 34.4, Glucose Level 173H, Calcium Level 7.3L , Magnesium Level 2.3 Height (Feet): 6 Weight (Pounds): 207 Objective General: No acute distress, alert and oriented x3 HEENT: Clear conjunctiva, EOMI CV: Positive rub, S1-S2 no murmurs rubs or gallops regular rate and rhythm, no JVD RESP: Coarse breath sounds bilaterally, no crackles no wheezes ABD: Bowel sounds present all 4 quadrants, soft, nontender to palpation EXT: No clubbing cyanosis edema Patricio Coast M.D. Jul 16, 2019 09:30
--- NOTE | 2019-07-16 09:32 | NUR ---
NURSE NOTES: Medical records received from [facility]. Files placed in inter-facility transfer packet.
[2019-07-16] MEDS: Levemir Flexpen SUBQ SCH (09:35)
[2019-07-16] MEDS ORDERED: DULoxetine 30mg cap ORAL SCH (10:30)
--- NOTE | 2019-07-16 10:49 | NUR ---
NURSE NOTES: Pt requested to continue his psych meds: cymbalta 90mg daily PO and Lamotrigine 200 HS PO. Notified PMD, received orders to continue these home meds. Read back given and verified.
--- NOTE | 2019-07-16 12:56 | NUR ---
NURSE NOTES: Dressing changed for bilateral feet. Warm to touch and small amt. yellowish drainage noted from both wounds. Cleansed, applied Silvasorb and Optifoam. Patient resting comfortably in bed, no signs of distress. Denies CP or SOB.
--- NOTE | 2019-07-16 14:28 | NUR ---
NURSE NOTES: Received orders to place patient [facility] diet.
--- NOTE | 2019-07-16 15:57 | NUR ---
NURSE NOTES: Report given to TESSA Khan at [facility]. Patient is going to room 4F60, CCU. 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
--- NOTE | 2019-07-16 16:14 | NUR ---
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 101.9 HR 111 RR 16 B/P 162/75 BIPAP FIO2 50% NA 134 BUN 25 CR 1.9 TROP 0.339 BNP 4687 IS: IV BOLUS NS X 4 LITERS VANCO IV NITRO TOPICAL MORPHINE IV ADMITTED TO ICU @ 2014 ICU STATUS DCP RETURN HOME
[2019-07-16 16:38] LABS: ANION GAP 9 mmol/L (5-15); BLOOD UREA NITROGEN 28 mg/dL (7-18); CALCIUM 7.7 MG/DL (8.5-10.1); CARBON DIOXIDE 26 MMOL/L (21-32); CHLORIDE 103 MMOL/L (98-107); CREATININE 2.1 MG/DL (0.55-1.30); POTASSIUM 3.6 MMOL/L (3.5-5.1); SODIUM 138 MMOL/L (136-145)
--- NOTE | 2019-07-16 16:42 | Discharge Summary ---
Discharge Summary Hospital Course Date of Admission Jul 14, 2019 at 17:38 Date of Discharge 07/16/2019 07/16/2019 Admitting Diagnosis NSTEMI HPI Fritz Levy Jr Romeo is a 58 year old male who was admitted on Jul 14, 2019 at 17:38 for Sepsis,Chest Pain Consultations pulmonary, cardiology Hospital Course 58-year-old male with past medical history of CAD, hypertension, dyslipidemia, HIV compliant on heart with a recent angiogram at [facility] 1 week prior to admission showing three-vessel disease recommended for CABG #NSTEMI with peak troponin of 20, now trending down to 4, chest pain free #CAD #HTN Continue on aspirin, Plavix, Lipitor and metoprolol DC heparin drip and change Nitro drip to Isordil 20 bid . increase metoprolol to 50 mg b.i.d. Continue losartan 100 mg daily, Hydralazine 50 mg every 8hours. Change iv Lasix to 40 po daily. Add prn Clonidine Awaiting transfer to [facility] for cardiac catheterization and coronary intervention. Echocardiogram showed ejection fraction 55% pulmonary and cardiology consults appreciated #Hypoxic respiratory failure secondary to acute on chronic diastolic heart failure -Patient weaned from BiPAP to 2 L nasal cannula -Change diuresis 40 mg IV Lasix twice daily to po 40 mg daily -Pulmonary consult as above -Nebs as needed # SIRS, ? myocarditis, ? Viral -Follow-up of blood cultures, urine cultures -repeat chest x-ray, no consolidation -UA negative -Continue antibiotics Zosyn vancomycin started (07/14- ), stop antibiotics if cultures negative #ISH on CKD -Continue diuresis -Continue to monitor BMP -Monitor I/o -Avoid nephrotoxic medication #HIV on Jj therapy -Continue home medication #MDD -continue Cymbalta #DM -insulin Diet: consistent carb vte and GI ppx Disposition: Transfer to [facility] for left heart cath I spent 36 minute son this encounter. >50% spent on counselling and care coordination. case d/w with consultants. additional 31 minutes spent on reviewing records, labs and previous hospitalizations. Discharge Medications New Medications: Seroigwmphas-Wlbe-Ktbsrpam,Iso (Zosyn 3.375 Gm Pre Mix-Bag) 3.375 Gm/50 Ml Froz.piggy 3.375 GM IVPB EVERY 8 HOURS for 3 Days, #3 BAG Acetaminophen* (Acetaminophen 325MG Tablet*) 325 Mg Tablet 650 MG ORAL Q6H PRN for 30 Days, #30 TAB Aspirin* (Aspirin*) 81 Mg Tab.chew 81 MG ORAL DAILY for 30 Days, #30 TAB Atorvastatin (Lipitor) 80 Mg Tablet 80 MG ORAL BEDTIME for 30 Days, #30 TAB Clonidine HCl (Clonidine HCl) 0.2 Mg Tablet 0.2 MG ORAL Q2H PRN for 30 Days, #30 TAB Clopidogrel Bisulfate* (Plavix*) 75 Mg Tablet 75 MG ORAL DAILY for 30 Days, #30 TAB [D50w] () 50 ML SOLN 50 ML IV Q30M PRN [D50w] () 50 ML SOLN 25 ML IV Q30M PRN Duloxetine Hcl* (Cymbalta*) 30 Mg Capsule.dr 90 MG ORAL DAILY for 30 Days, #30 CAP Furosemide* (Lasix*) 40 Mg Tablet 40 MG ORAL EVERY 12 HOURS for 30 Days, #30 TAB Hydralazine HCl (Hydralazine HCl) 50 Mg Tablet 50 MG ORAL Q8HR for 30 Days, #90 TAB Insulin Aspart (Novolog Flexpen) 100 Unit/1 Ml Insuln.pen 0 UNITS SUBQ BEFORE MEALS AND HS for 30 Days, #1 EA Insulin Detemir (Levemir Flexpen) 100 Unit/1 Ml Insuln.pen 14 UNITS SUBQ Q12HR for 30 Days, #1 EA Isosorbide Dinitrate* (Isordil*) 10 Mg Tablet 20 MG ORAL BID for 30 Days, #60 TAB Lamotrigine* (Lamictal*) 100 Mg Tablet 200 MG ORAL BEDTIME for 30 Days, #30 TAB Losartan Potassium* (Cozaar*) 50 Mg Tablet 100 MG ORAL DAILY for 30 Days, #30 TAB Metoprolol Tartrate* (Metoprolol Tartrate*) 50 Mg Tablet 50 MG ORAL Q12HR for 30 Days, #60 TAB Ondansetron* (Zofran*) 4 Mg/2 Ml Vial 4 MG IVP Q6H PRN for 30 Days, #1 VIAL Raltegravir (Isentress) 400 Mg Tablet 400 MG ORAL EVERY 12 HOURS for 30 Days, #60 TAB [Vanco pharmacy to dose] () 1 EA MISC 1 EA MISC DAILY PRN Discharge Condition Upon Discharge: critical Discharge [facility]position [facility] Discharge Diagnoses: (1) NSTEMI (non-ST elevated myocardial infarction) (2) Diabetes (3) HIV (human immunodeficiency virus infection) (4) CKD (chronic kidney disease) (5) History of acute respiratory failure (6) MDD (major depressive disorder), recurrent episode, moderate (7) ISH (acute kidney injury) (8) SIRS (systemic inflammatory response syndrome) (9) Hypertension (10) CAD, multiple vessel Patricio Coats M.D. Jul 16, 2019 16:42
[2019-07-16] MEDS ORDERED: METOPROLOL TART50 MG ORAL (16:49)
[2019-07-16] MEDS ORDERED: ISENTRESS400 MG ORAL (16:49)
[2019-07-16] MEDS ORDERED: APRESOLINE50 MG ORAL (16:49)
[2019-07-16] MEDS ORDERED: NOVOLOG100 UNITS1 SUBQ (16:49)
[2019-07-16] MEDS ORDERED: LAMICTAL100 MG ORAL (16:49)
[2019-07-16] MEDS ORDERED: ZOSYN 3.373.375 GM/1 IVPB (16:49)
[2019-07-16] MEDS ORDERED: D50w IV (16:49)
[2019-07-16] MEDS ORDERED: ZOFRAN 4 MG4 MG/2 ML IVP (16:49)
[2019-07-16] MEDS ORDERED: ISOSORBIDE DINI10 MG ORAL (16:49)
[2019-07-16] MEDS ORDERED: PLAVIX75 MG ORAL (16:49)
[2019-07-16] MEDS ORDERED: ASPIRIN81 MG ORAL (16:49)
[2019-07-16] MEDS ORDERED: ACETAMINOPHEN325 M1 ORAL (16:49)
[2019-07-16] MEDS ORDERED: LEVEMIR FL100 UNIT/1 SUBQ (16:49)
[2019-07-16] MEDS ORDERED: COZAAR50 MG ORAL (16:49)
[2019-07-16] MEDS ORDERED: FUROSEMIDE40 MG ORAL (16:49)
[2019-07-16] MEDS ORDERED: LIPITOR80 MG ORAL (16:49)
[2019-07-16] MEDS ORDERED: CYMBALTA30 MG ORAL (16:49)
[2019-07-16] MEDS ORDERED: Vanco pharmacy to dose MISC (16:49)
[2019-07-16] MEDS ORDERED: CLONIDINE 0.2M0.2 MG ORAL (16:49)
--- NOTE | 2019-07-16 17:14 | NUR ---
NURSE NOTES: Pt provided with sandwich for snack an ate 100%. Insulin given. Pt is no acute distress and denies chest pain. Linens and hospital gown changed. Pt in bed, awaiting ambulance personnel for t/t [facility]. Bed in lowest position, alarm on, side rails up x 2, will continue to monitor.
--- NOTE | 2019-07-16 17:44 | NUR ---
NURSE NOTES: Pt discharged in stable condition via ambulance personnel. Belongings and home medications reviewed and returned to pt. LAC and RAC 18g Ivs kept in place. Pt disconnected from surveillance monitor.
[2019-07-16] MEDS ORDERED: NS 500ML ONE (17:53)
[2019-07-16] MEDS ORDERED: Tubing IV Secondary IV ONE (17:53)
--- NOTE | 2019-07-16 18:17 | Pulmonolgy Critical Care Note ---
Critical Care - Asmt/Plan Problems: (1) NSTEMI (non-ST elevated myocardial infarction) (2) Acute coronary syndrome (3) Hypoxia (4) MDD (major depressive disorder), recurrent episode, moderate (5) HIV (human immunodeficiency virus infection) (6) History of acute respiratory failure (7) CKD (chronic kidney disease) (8) Diabetes Respiratory: monitor respiratory rate Cardiac: continue to monitor HR/BP, other - F/u cards recs, awaiting transfer to [facility] Renal: check electrolytes Endocrine: monitor blood sugar Hematologic: monitor H/H Neurologic: keep patient comfortable Prophylaxis: Protonix, Heparin Time Spent (Minutes): 40 Notes Reviewed: 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 safety officer, cardio Discussed with: nurses, consultants Critical Care - Objective Last 24 Hour Vital Signs Date Time Temp Pulse Resp B/P (MAP) Pulse Ox O2 Delivery O2 Flow Rate FiO2 07/16/19 17:00 92 25 131/56 97 Nasal Cannula 2.0 07/16/19 16:00 89 07/16/19 16:00 Nasal Cannula 2.0 07/16/19 16:00 89 18 126/53 100 Nasal Cannula 2.0 07/16/19 15:00 90 19 129/56 98 Nasal Cannula 2.0 07/16/19 14:00 91 19 128/56 97 Nasal Cannula 2.0 07/16/19 13:40 140/56 07/16/19 13:00 94 23 140/56 97 Nasal Cannula 2.0 07/16/19 12:00 Nasal Cannula 2.0 07/16/19 12:00 98.6 95 19 120/55 99 Nasal Cannula 2.0 07/16/19 12:00 96 07/16/19 11:07 98 Room Air 21 07/16/19 11:00 98 20 107/54 99 Nasal Cannula 2.0 07/16/19 10:00 96 19 116/53 96 Nasal Cannula 2.0 07/16/19 09:30 92 18 119/51 99 Nasal Cannula 2.0 07/16/19 09:27 93 18 120/56 99 Nasal Cannula 2.0 07/16/19 09:27 110/58 07/16/19 09:26 99 110/58 07/16/19 09:26 110/58 07/16/19 09:00 95 18 112/57 100 Nasal Cannula 2.0 07/16/19 08:30 99.0 96 18 107/58 100 Nasal Cannula 2.0 07/16/19 08:00 96 07/16/19 08:00 Nasal Cannula 2.0 07/16/19 07:30 94 17 127/68 100 Nasal Cannula 2.0 07/16/19 07:15 94 17 126/58 100 Nasal Cannula 2.0 07/16/19 07:00 91 17 126/60 100 Nasal Cannula 2.0 07/16/19 06:45 95 16 116/60 100 Nasal Cannula 2.0 07/16/19 06:30 94 16 123/59 100 Nasal Cannula 2.0 07/16/19 06:15 91 16 110/56 100 Nasal Cannula 2.0 07/16/19 06:13 91 16 109/50 100 Nasal Cannula 2.0 07/16/19 06:00 107/61 07/16/19 06:00 99.5 91 18 107/59 100 Nasal Cannula 2.0 07/16/19 05:30 95 17 128/61 100 Nasal Cannula 2.0 07/16/19 05:15 95 17 125/60 100 Nasal Cannula 2.0 07/16/19 05:00 95 17 116/59 100 Nasal Cannula 2.0 07/16/19 04:45 95 22 117/55 100 Nasal Cannula 2.0 07/16/19 04:30 95 16 122/53 100 Nasal Cannula 2.0 07/16/19 04:15 91 17 120/59 100 Nasal Cannula 2.0 07/16/19 04:00 99 07/16/19 04:00 Nasal Cannula 2.0 07/16/19 04:00 99.0 91 17 114/55 100 Nasal Cannula 2.0 07/16/19 03:45 91 16 118/56 100 Nasal Cannula 2.0 07/16/19 03:30 95 15 123/63 100 Nasal Cannula 2.0 07/16/19 03:15 95 17 112/55 100 Nasal Cannula 2.0 07/16/19 03:00 95 17 131/57 100 Nasal Cannula 2.0 07/16/19 02:45 95 20 129/59 100 Nasal Cannula 2.0 07/16/19 02:30 95 17 131/58 100 Nasal Cannula 2.0 07/16/19 02:15 99 21 123/58 100 Nasal Cannula 2.0 07/16/19 02:00 91 20 132/63 100 Nasal Cannula 2.0 07/16/19 01:45 91 18 124/56 100 Nasal Cannula 2.0 07/16/19 01:30 91 17 98/53 100 Nasal Cannula 2.0 07/16/19 01:15 93 19 107/53 100 Nasal Cannula 2.0 07/16/19 01:00 91 18 106/55 100 Nasal Cannula 2.0 07/16/19 00:45 94 19 114/51 100 Nasal Cannula 2.0 07/16/19 00:30 94 20 110/54 100 Nasal Cannula 2.0 07/16/19 00:15 99 21 106/56 100 Nasal Cannula 2.0 07/16/19 00:00 99.0 99 23 128/60 99 Nasal Cannula 2.0 07/16/19 00:00 99 07/16/19 00:00 Nasal Cannula 2.0 07/15/19 23:45 99 20 120/60 100 Nasal Cannula 2.0 07/15/19 23:30 99.5 99 19 121/62 100 Nasal Cannula 2.0 07/15/19 23:26 99.5 07/15/19 23:15 99 20 128/61 100 Nasal Cannula 2.0 07/15/19 23:00 99 19 136/66 99 Nasal Cannula 2.0 07/15/19 22:56 100.6 07/15/19 22:45 101 21 167/72 100 Nasal Cannula 2.0 07/15/19 22:30 101 19 136/66 100 Nasal Cannula 2.0 07/15/19 22:15 101 20 124/65 100 Nasal Cannula 2.0 07/15/19 22:00 101 19 135/66 100 Nasal Cannula 2.0 07/15/19 21:45 101 21 129/66 100 Nasal Cannula 2.0 07/15/19 21:30 108 145/83 07/15/19 21:30 27 130/73 98 Nasal Cannula 2.0 07/15/19 21:29 145/83 07/15/19 21:22 145/83 07/15/19 21:15 23 145/83 100 Nasal Cannula 2.0 07/15/19 21:00 18 136/67 100 Nasal Cannula 2.0 07/15/19 20:45 16 122/65 100 Nasal Cannula 2.0 07/15/19 20:30 102 15 138/64 100 Nasal Cannula 2.0 07/15/19 20:15 101 17 145/64 100 Nasal Cannula 2.0 07/15/19 20:00 Nasal Cannula 2.0 07/15/19 20:00 98.8 99 16 136/67 100 Nasal Cannula 2.0 07/15/19 19:45 98 17 155/69 100 Nasal Cannula 2.0 07/15/19 19:30 99 16 141/70 100 Nasal Cannula 2.0 07/15/19 19:30 100 Nasal Cannula 2.0 28 07/15/19 19:15 97 14 167/69 100 Nasal Cannula 2.0 07/15/19 19:00 96 18 163/67 100 Nasal Cannula 2.0 07/15/19 18:30 98.7 93 14 135/63 100 Nasal Cannula 2.0 Status: awake Condition: improving HEENT: atraumatic, normocephalic Neck: full ROM Lungs: clear Heart: HR/BP stable Abdomen: soft, non-tender, active bowel sounds Extremities: no C/C/E Micro: Microbiology Date/Time Source Procedure Growth Status 07/14/19 17:18 Blood Blood Culture - Preliminary NO GROWTH AFTER 24 HOURS Resulted 07/14/19 17:05 Blood Blood Culture - Preliminary NO GROWTH AFTER 24 HOURS Resulted 07/14/19 19:50 Nasal Nares - Final Complete 07/14/19 19:50 Nasal Nares - Final Complete Accucheck: 161 Critical Care - Subjective ROS Limited/Unobtainable: Yes ICU Day: 3 Interval Events: Awaiting transfer to [facility] Off nitro gtt Condition: improving IV Access: peripheral EKG Rhythm: Sinus Rhythm FI02: 21 Sputum Amount: None Fluids: SLIV Drips: Nitro off I&O: Intake and Output 07/15/19 07/16/19 19:00 07:00 Intake Total 678.676 ml 830.919 ml Output Total 1750 ml 1390 ml Balance -1071.324 ml -559.081 ml Intake Oral 140 ml 400 ml IV Total 538.676 ml 430.919 ml Output Urine Total 1750 ml 1390 ml Subjective: No F/C/CP/SOB/V/N/D/C/abd pain/urinary complaints Labs: Laboratory Tests Test 07/16/19 00:25 07/16/19 06:45 07/16/19 12:23 07/16/19 15:50 Activated Partial Thromboplast Time 91 SEC (23-33) H Troponin I 9.695 ng/mL (0.000-0.056) 6.881 ng/mL (0.000-0.056) 4.472 ng/mL (0.000-0.056) Sodium Level 138 MMOL/L (136-145) 138 MMOL/L (136-145) Potassium Level 3.7 MMOL/L (3.5-5.1) 3.6 MMOL/L (3.5-5.1) Chloride Level 103 MMOL/L (98-107) 103 MMOL/L (98-107) Carbon Dioxide Level 26 MMOL/L (21-32) 26 MMOL/L (21-32) Anion Gap 9 mmol/L (5-15) 9 mmol/L (5-15) Blood Urea Nitrogen 28 mg/dL (7-18) H 28 mg/dL (7-18) H Creatinine 2.0 MG/DL (0.55-1.30) H 2.1 MG/DL (0.55-1.30) H Estimat Glomerular Filtration Rate 34.4 mL/min (>60) 32.5 mL/min (>60) Glucose Level 173 MG/DL (74-106) H 160 MG/DL (74-106) H Calcium Level 7.3 MG/DL (8.5-10.1) L 7.7 MG/DL (8.5-10.1) L Magnesium Level 2.3 MG/DL (1.8-2.4) 2.3 MG/DL (1.8-2.4) Brett Meredith MD Jul 16, 2019 18:17
--- NOTE | 2019-07-17 15:01 | Cardiology Report ---
APPROVED REPORT EXAM: Two-dimensional and M-mode echocardiogram with Doppler and color Doppler. INDICATION Elevated Troponin M-Mode DIMENSIONS IVSd1.8 (0.7-1.1cm)Left Atrium (MM)4.0 (1.6-4.0cm) LVDd5.2 (3.5-5.6cm)Aortic Root3.2 (2.0-3.7cm) PWd1.4 (0.7-1.1cm)Aortic Cusp Exc.1.9 (1.5-2.0cm) LVDs3.7 (2.5-4.0cm) PWs1.6 cm Normal left ventricular chamber size, systolic function and wall motion except distal inferior septum adn distal inferiro os which on some veiws appear hypokinetic Left ventricular ejection fraction estimated to be 55 %. Mild left ventricular hypertrophy. Anterior Echo-free space, may be due to pericardial fat or effusion. All other cardiac chamber sizes are within normal limits. Focal aortic valve sclerosis with adequate cusp excursion. Thickened mitral valve leaflets with normal excursion. Mitral annulus and aortic root calcification. Pulmonic valve not well visualized. Normal tricuspid valve structure. IVC is normal in size with physiological collapse. A color flow and spectral Doppler study was performed and revealed: No aortic regurgitation. Aortic valve peak gradient 14 mmhg and mean ggradient 6 mmhg No mitral regurgitation. Mitral diastolic velocities suggest mild left ventricular diastolic dysfunction (Grade I). No tricuspid regurgitation. Tricuspid systolic velocities suggests peak right ventricular systolic pressure of 10 mmHg. No pulmonic regurgitation present.
== END 2019-07-16 17:54 | disposition short-term general hospital (02) | DRG 280 ==
LOC: EMR 16:30 → EDBEDREQ 17:03 → ICU 17:38 → EDBEDREQSVC 18:04 → EDBEDREQ 18:04
PROC: 5A09357 Assistance with Respiratory Ventilation, Less than 24 Consecutive Hours, Continuous Positive Airway Pressure (ICD-10-PCS; principal; 2019-07-14)
DX: I21.4 Non-ST elevation (NSTEMI) myocardial infarction (principal); I50.33 Acute on chronic diastolic (congestive) heart failure; J96.91 Respiratory failure, unspecified with hypoxia; F33.1 Major depressive disorder, recurrent, moderate; B20 Human immunodeficiency virus [HIV] disease; I13.0 Hypertensive heart and chronic kidney disease with heart failure and stage 1 through stage 4 chronic kidney disease, or unspecified chronic kidney disease; N17.9 Acute kidney failure, unspecified; R65.10 Systemic inflammatory response syndrome (SIRS) of non-infectious origin without acute organ dysfunction; D61.818 Other pancytopenia; I24.9 Acute ischemic heart disease, unspecified; N18.9 Chronic kidney disease, unspecified; I25.10 Atherosclerotic heart disease of native coronary artery without angina pectoris; E11.22 Type 2 diabetes mellitus with diabetic chronic kidney disease; Z79.4 Long term (current) use of insulin; Z59.0 Homelessness
CPT/HCPCS: 36415; 71045; 80048; 80053; 80202; 81003; 82550; 82962; 83605; 83690; 83735; 83880; 84484; 85025; 85610; 85730; 86710; 87040; 87081; 93005; 93306; 94640; 94660; 96361; 96365; 96366; 96367; 96375; 96376; 99285; J1815; J2405; J7030; J7620; S5561